=== PATIENT | female | born 1940 | race Caucasian/White ===

== ENCOUNTER → 2016-07-15 | Outpatient (CLI) | payer MEDICARE, OTHER ==
[~2016-07-15] VITALS: Ht 167.6 cm; Wt 94.3 kg
[~2016-07-15] MED LIST: ASPI-983 PO; ATOR10TA66 PO; ATOR20TA49 PO; ATOR40TA70 PO; CALC-80; CATHETER FLUSH 10 ML SYR IV PRN; CEFU500T PO; CEPH-507 PO; CHOL2000; CHOL20003 PO; CLOP75TA28 PO; CLOP75TA69 PO; DILT60TA PO; FLUT15.88 NS; FURO20TA4 PO; FURO40TA4 PO; GLUC10002; HYDR-3812 PO; LEVO125T6; LISI2.5T PO; MAG1CAPS4 PO; MAGN250T13 PO; MULT-608; NITR-65 PO; NITR100C10 PO; OMEG-160 PO; OMG1KC; POTA-53 PO; POTA10CA43 PO; POTA20TA8 PO; POTA2TAB15 PO; POTA99TA21 PO; REGADENOSON 0.4 MG/5 ML SYR (LEXISCAN) IV ONE; WARF-48 PO; WARF2.5T56 PO; WARF5TAB6 PO; WARF7.5T PO
--- OUTSIDE RECORDS SUMMARY | 2016-07-15 08:21 | XMS REPORT | Continuity of Care Document ---
Author Author [facility] Organization [facility] Address Unknown Phone Unavailable Care Team Providers Care Webbing Tacker Name Role Phone Paz Pisano PCP [phone] Source Comments Some departments are not documenting in the electronic medical record. If you do not see the information that you expected, contact Release of Information in the Health Information Management department at [phone] for further assistance in locating additional records.[facility] Active Allergies and Adverse Reactions No Known Allergies Current Medications Prescription Sig. Disp. Refills Start End Date Status Date levothyroxine (SYNTHROID) Take 125 mcg by mouth Active 125 mcg tablet every 48 hours. Alternate with 150mcg furosemide (LASIX) 40 mg Take 40 mg by mouth Active tablet daily. levothyroxine (SYNTHROID) Take 150 mcg by mouth Active 150 mcg tablet every 48 hours. Alternate with 125mcg diltiazem (CARDIZEM) 60 Take 60 mg by mouth four Active mg tablet times daily. atorvastatin (LIPITOR) 10 Take 10 mg by mouth Active mg tablet daily. cholecalciferol (VITAMIN Take 1,000 Units by mouth Active D-3) 1,000 units tablet daily. warfarin (COUMADIN) 5 mg Take 1 tablet (5mg) on Active tablet Wednesday, Wednesday, Wednesday, , Wednesday and 1.5 tablets (7.5mg) on Wednesday and Wednesday. fish oil /omega-3 fatty Take 1 Cap by mouth Active acids (SEA-OMEGA) daily. 340/1000 mg capsule Active Problems Problem Noted Date Facial fracture (HCC) 09/05/2015 Immunizations Name Dates Previously Given Next Due Td Vaccine 09/05/2015 Social History Tobacco Use Types Packs/Day Years Used Date Never Smoker Alcohol Use Drinks/Week oz/Week Comments No Last Filed Vital Signs Vital Sign Reading Time Taken Blood Pressure 104/63 09/06/2015 10:34 AM CONTRACT OFFICER Pulse 81 09/06/2015 10:34 AM CONTRACT OFFICER Temperature 36.5 C (97.7 F) 09/06/2015 10:34 AM CONTRACT OFFICER Respiratory Rate - - Height - - Weight 97.07 kg (214 lb) 09/05/2015 11:45 PM CONTRACT OFFICER Body Mass Index - - Oxygen Saturation 95% 09/06/2015 10:34 AM CONTRACT OFFICER Plan of Care Health Maintenance Due Date Last Done Comments Physical (Comprehensive) 1947 Exam Pertussis Vaccine 1949 Shingles Vaccine 1998 Osteoporosis Screening 2003 Prevnar/Pneumovax (#1) 2003 Influenza Vaccine 02/27/2016 Tetanus Vaccine 09/04/2025 09/05/2015 Results from Last 3 Months Not on file
[2016-07-15 09:53] VITALS: BP 106/56
[2016-07-15 09:56] VITALS: BP 109/67
--- NOTE | 2016-07-16 07:38 | STRESS TEST ---
PROCEDURE PHYSICIAN: ANAHY HANNA DATE OF PROCEDURE: 07/15/2016 LEXISCAN MYOVIEW STRESS TEST REPORT: REFERRING PHYSICIAN: Dr. Pisano BASELINE HEART RATE: 74 BASELINE BLOOD PRESSURE: 115/62 BASELINE EKG: Sinus rhythm with no ischemic changes. IN SUMMARY: The patient was injected with 10.61 mCi of technetium 99 Myoview and the resting images were obtained. Then the patient received 0.4 mg of Lexiscan followed by 31 mCi of technetium 99 Myoview. Throughout the test, there were no EKG changes. The resting and stress images were reviewed and compared in the short axis, horizontal long axis, and vertical long axis views. Review of the images showed breast attenuation. There is reversible ischemia involving the whole anterior wall, anterolateral wall and mid to apical inferolateral wall. SSS is 17, SDS 17, TID value 0.85. On the gated images, the left ventricle appeared to be normal size with normal contractility. Calculated ejection fraction 70%. IN CONCLUSION: 1. The patient tolerated Lexiscan well. 2. Reversible ischemia involving the whole anterior wall, anterolateral wall and mid to apical inferior lateral wall. 3. Normal left ventricular size with normal contractility. Calculated ejection fraction 70%. Job ID: [id number] Dictated Date: 07/15/2016 16:28:36 Fire Control Technician G Date: 07/16/2016 07:36:59 / corinne
== END ==
LOC: CARD 08:17
PROVIDERS: ATTEND Internal Medicine Cardiovascular Disease
DX: I48.2 Chronic atrial fibrillation (principal); I25.10 Atherosclerotic heart disease of native coronary artery without angina pectoris; I12.9 Hypertensive chronic kidney disease with stage 1 through stage 4 chronic kidney disease, or unspecified chronic kidney disease; N18.4 Chronic kidney disease, stage 4 (severe); E78.2 Mixed hyperlipidemia
CPT/HCPCS: 78452; 93017

== ENCOUNTER 2016-08-26 06:44 | Day surgery (SDC) | payer MEDICARE, OTHER ==
[~2016-08-26] VITALS: Ht 167.6 cm; Wt 89.8 kg
[2016-08-26] VITALS (11 sets, daily range): BP systolic 96–124; BP diastolic 63–83
[~2016-08-26 06:44] MED LIST changes: -ATOR20TA49 PO; -CATHETER FLUSH 10 ML SYR IV PRN; -CLOP75TA69 PO; -FLUT15.88 NS; -LISI2.5T PO; -MAGN250T13 PO; -POTA20TA8 PO; -REGADENOSON 0.4 MG/5 ML SYR (LEXISCAN) IV ONE
--- OUTSIDE RECORDS SUMMARY | 2016-08-26 06:47 | XMS REPORT | Continuity of Care Document ---
Author Author [facility] Organization [facility] Address Unknown Phone Unavailable Care Team Providers Care Field Cane Scale Clerk Name Role Phone Paz Pisano PCP [phone] Source Comments Some departments are not documenting in the electronic medical record. If you do not see the information that you expected, contact Release of Information in the Health Information Management department at [phone] for further assistance in locating additional records.[facility] Active Allergies and Adverse Reactions No Known [...] Taken Blood Pressure 104/63 09/06/2015 10:34 AM ELECTRIC RANGE PREPARER Pulse 81 09/06/2015 10:34 AM ELECTRIC RANGE PREPARER Temperature 36.5 C (97.7 F) 09/06/2015 10:34 AM ELECTRIC RANGE PREPARER Respiratory Rate - - Height - - Weight 97.07 kg (214 lb) 09/05/2015 11:45 PM ELECTRIC RANGE PREPARER Body Mass Index - - Oxygen Saturation 95% 09/06/2015 10:34 AM ELECTRIC RANGE PREPARER Plan of Care Health Maintenance Due Date Last Done Comments Physical (Comprehensive) 1947 Exam Pertussis Vaccine 1949 Shingles Vaccine 1998 Osteoporosis Screening 2003 Prevnar/Pneumovax (#1) 2003 Influenza Vaccine 02/27/2016 Tetanus Vaccine 09/04/2025 09/05/2015 Results from Last 3 Months Not on file
--- OUTSIDE RECORDS SUMMARY | 2016-08-26 06:47 | XMS REPORT | Continuity of Care Document ---
Author Author [facility] Organization [facility] Address Unknown Phone Unavailable Care Team Providers Care Information Systems Auditor Name Role Phone Paz Pisano PCP [phone] Source Comments Some departments are not documenting in the electronic medical record. If you do not see the information that you expected, contact Release of Information in the Health Information Management department at [phone] for further assistance in locating additional records.[facility] Active Allergies and Adverse Reactions No [...] Taken Blood Pressure 104/63 09/06/2015 10:34 AM ASSEMBLER AND TESTER ELECTRONICS Pulse 81 09/06/2015 10:34 AM ASSEMBLER AND TESTER ELECTRONICS Temperature 36.5 C (97.7 F) 09/06/2015 10:34 AM ASSEMBLER AND TESTER ELECTRONICS Respiratory Rate - - Height - - Weight 97.07 kg (214 lb) 09/05/2015 11:45 PM ASSEMBLER AND TESTER ELECTRONICS Body Mass Index - - Oxygen Saturation 95% 09/06/2015 10:34 AM ASSEMBLER AND TESTER [employer]LECTRONICS Plan of Care Health Maintenance Due Date Last Done Comments Physical (Comprehensive) 1945 Exam Pertussis Vaccine 1949 Shingles Vaccine 1998 Osteoporosis Screening 2003 Prevnar/Pneumovax (#1) 2003 Influenza Vaccine 02/27/2016 Tetanus Vaccine 09/04/2025 09/05/2015 Results from Last 3 Months Not on file
[2016-08-26] MEDS ORDERED: NS IV 1000 ML 1,000 ML ONE (07:01)
[2016-08-26] MEDS ORDERED: LIDOCAINE 1% INJ 20 ML (XYLOCAINE) VIAL ONE (07:01)
[2016-08-26] MEDS ORDERED: HEParin (CATH LAB) 2,000 ML IV ONE (07:02)
[2016-08-26] MEDS ORDERED: NS IV 1000 ML 1,000 ML IV SCH ×2 (07:07→10:10)
[2016-08-26 07:33] LABS: BILIRUBIN,URINE NEGATIVE (NEGATIVE); KETONES,URINE NEGATIVE (NEGATIVE); LEUKOCYTE ESTERASE ,URINE 2+ (NEGATIVE); NITRITE,URINE NEGATIVE (NEGATIVE); PH,URINE 6 (5-9); PROTEIN,URINE NEGATIVE (NEGATIVE); UROBILINOGEN,URINE NORMAL (NORMAL)
[2016-08-26 07:33] LABS: MEAN PLATELET VOLUME 9.9 FL (7.4-10.4); RED BLOOD COUNT 5.15 10^6/uL (4.35-5.85); RED CELL DISTRIBUTION WIDTH 16.4 % (10.0-14.5); WHITE BLOOD COUNT 10.1 10^3/uL (4.3-11.0)
[2016-08-26 07:45] LABS: INR 1.6 (0.8-1.4); PROTHROMBIN TIME PATIENT 18.7 SEC (12.2-14.7)
[2016-08-26 07:50] LABS: WBC,URINE 25-50 /HPF
[2016-08-26 07:53] LABS: ALBUMIN 3.3 G/DL (3.2-4.5); CALCIUM 9.3 MG/DL (8.5-10.1); CREATININE SERUM 1.15 MG/DL (0.60-1.30); POTASSIUM 3.6 MMOL/L (3.6-5.0); TOTAL PROTEIN 6.3 G/DL (6.4-8.2)
--- NOTE | 2016-08-26 08:06 | Diagnostic Imaging Report ---
Portable upright radiograph of the chest. COMPARISON: 11/03/2015. INDICATION: Abnormal stress test, shortness of breath. FINDINGS: The lungs are hyperinflated but clear. The heart size is moderately enlarged. No effusion or pneumothorax. The mediastinum and mita appear unremarkable. IMPRESSION: COPD. Cardiomegaly. Dictated by: Dictated on workstation # [id number]
[2016-08-26] MEDS ORDERED: FLUT15.88 NS (08:19)
[2016-08-26] MEDS ORDERED: CLOP75TA69 PO (08:19)
[2016-08-26] MEDS ORDERED: MAGN250T13 PO (08:19)
[2016-08-26] MEDS ORDERED: LISI2.5T PO (08:19)
[2016-08-26] MEDS ORDERED: ASPI-983 PO (08:19)
[2016-08-26] MEDS ORDERED: POTA20TA8 PO (08:19)
[2016-08-26] MEDS ORDERED: fentaNYL INJECTION 100 MCG/2 ML AMP ONE (09:31)
[2016-08-26] MEDS ORDERED: MIDAZOLAM 5 MG/5 ML (VERSED) VIAL ONE (09:31)
--- NOTE | 2016-08-26 09:46 | Cardiac Procedure Note-CS/ASA ---
Pre-Procedure Note Pre-Op Procedure Note H&P Reviewed The H&P was reviewed, patient examined and no changes noted. Date H&P Reviewed: Aug 26, 2016 Time H&P Reviewed: 09:46 Conscious Sedation Pre-Proced Time Reviewed: 09:46 ASA Class: 3 Airway Mallampati Classification: ([place] appropriate class) I. II. III, IV Lungs Heart ASA score ASA 1: a normal healthy patient ASA 2: a patient with a mild systemic disease (mid diabetes, controlled hypertension, obesity x ASA 3: a patient with a severe systemic disease that limits activity (angina , COPD, prior Myocardial infarction) ASA 4: a patient with an incapacitating disease that is a constant threat to life (CHF, renal failure) ASA 5: a moribund patient not expected to survive 24 hrs. (ruptured aneurysm) ASA 6: a declared brain patient whose organs are being harvested. For emergent operations, add the letter E after the classification Grade 3 Sedation Plan: Analgesia, Amnesia, Plan communicated to team members, Discussed options with patient/fam, Discussed risks with patient/fam Note The patient is an appropriate candidate to undergo the planned procedure, sedation, and anesthesia. The patient immediately re-assessed prior to indication. ANAHY HANNA MD Aug 26, 2016 9:46 am
[2016-08-26] MEDS ORDERED: ATOR20TA49 PO (10:12)
--- NOTE | 2016-08-26 10:13 | Discharge Inst-Post CATH ---
Discharge Inst-CATH Post Cardiac Cath D/C Inst Follow Up/Plan Appointment with Dr Her's office in 2-4 weeks CARDIAC CATH DISCHARGE INSTRUCTIONS *Hold Metformin for 48 hours post heart cath. ACTIVITY * Go Home directly and rest. * Limit activity of the leg (or wrist if it was used) for 7 days including aerobics, swimming, jogging, bicycling, etc. * Restrict stair-climbing for 7 days if possible, if not, climb up with your non -cath leg, then bring together on the same step. * Avoid lifting, pushing, pulling or excessive movement of the affected extremity for 7 days. * Customary sexual activity may be resumed after 2 days-use caution not to use a position that strains or causes pain to the affected extremity. * No driving for 24 hours. * NO SMOKING. * Avoid straining for bowel movements for 7 days. * Gentle walking on level ground is allowed. * Returning to work will depend on the type of procedure and the results. Your doctor will discuss this with you. CALL YOUR DOCTOR FOR ANY OF THE FOLLOWING: *If bleeding from the puncture site occurs- Apply gentle pressure to site with clean cloth and call your doctor or EMS. * If a knot or lump forms under the skin, increases in size, or causes pain. * If bruising appears to be worsening or moving further down your leg instead of disappearing. * Temperature above 101 F. CARE OF YOUR GROIN INCISION; * Bruising or purple discoloration of the skin near the puncture site is common. * You may shower only, no bathtub bathing for 5 days. Be careful to avoid slipping as your leg may feel stiff. * If a closure device was used on your femoral artery, please see the attached guide regarding care of the device and your leg. * REMOVE the dressing from your groin the next day after your procedure in the shower. CARE OF YOUR WRIST INCISION; * Bruising or purple discoloration of the skin near the puncture site is common. * You may shower. * DO NOT submerge wrist. * Remove dressing in 24 hours. ANAHY HER MD Aug 26, 2016 10:13
[2016-08-26] MEDS ORDERED: PATIENT MAY USE OWN MEDS, ALL PO SCH (10:15)
--- NOTE | 2016-08-27 07:45 | DISCHARGE SUMMARY ---
PROCEDURE PHYSICIAN: ANAHY HANNA DATE OF PROCEDURE: 08/26/2016 REFERRING PHYSICIAN: Dr. Pisano. Mrs. Carver is a 76-year-old lady with history of coronary artery disease. She had a stent to the LAD done in September 2015. She had an abnormal stress test. She was scheduled for left heart catheterization, possible PTCA. PROCEDURE NOTE: After explaining the procedure to the patient, all pros and cons were explained. All questions were answered. The patient signed a consent, then she was placed on the cardiac catheterization laboratory. The right groin was prepped in a sterile fashion. Local anesthesia applied to the right groin. 6-Occitan sheath was placed in the right femoral artery. Combination of right and left Paul catheter were used to access the right and left coronary system. Pigtail catheter advanced to the left ventricular cavity. Pressure was measured left. No left ventriculogram was done. Pullback LV to aorta was done. The aortic arch angiogram was done. At the end of the procedure, sheath was removed. Mynx device deployed. Hemostasis achieved. Total contrast used is 48 mL. Total radiation is 138 mCi. FINDINGS: HEMODYNAMICS: LV pressure 94/7, end-diastolic pressure of 7, aortic pressure 93/55, mean of 72. ANATOMY: 1. LEFT MAIN CORONARY ARTERY: The left main coronary artery is bifurcating to left anterior descending and left circumflex artery with no obstructive disease. 2. LEFT ANTERIOR DESCENDING ARTERY: The left anterior descending artery is moderate in size. Stent is patent in the LAD. Mild small vessel disease distally. 3. LEFT CIRCUMFLEX ARTERY: The left circumflex artery is moderate in size with mild irregularity distally. No significant obstructive disease. Right coronary artery is moderate in size with no obstructive disease. 4. AORTIC ARCH ANGIOGRAM: Aortic arch angiogram was done in the left anterior oblique position. Aortic arch is slightly tortuous. No dissection or aneurysm. Origin of the innominate artery, carotid artery and subclavian artery appeared normal. CONCLUSION: 1. Patent stent in the proximal LAD known to have a Promus 2.5 x 24 mm with mild disease at the distal LAD and distal circumflex artery, nonobstructive disease. 2. Normal left ventricular end-diastolic pressure. 3. Slightly tortuous aortic arch with hypertensive changes with no dissection or aneurysm. Normal great neck vessels. DISCUSSION AND RECOMMENDATION: Medical therapy is recommended. No intervention is needed at this time. I will discontinue Plavix, continue on aspirin and Coumadin. Increase Lipitor to 20 mg daily FINAL DIAGNOSES: 1. Coronary artery disease. 2. Hypertension. 3. Hyperlipidemia. 4. Diabetes mellitus. Job ID: [id number] Dictated Date: 08/26/2016 10:17:36 Baker Helper Date: 08/27/2016 07:44:26/adriel
== END 2016-08-26 15:25 | disposition home or self-care (01) ==
LOC: CATH 06:44 → SURG 10:36 → CATH 15:25
PROVIDERS: ATTEND Internal Medicine Cardiovascular Disease
DX: R94.39 Abnormal result of other cardiovascular function study (principal); I25.10 Atherosclerotic heart disease of native coronary artery without angina pectoris; I12.9 Hypertensive chronic kidney disease with stage 1 through stage 4 chronic kidney disease, or unspecified chronic kidney disease; E11.22 Type 2 diabetes mellitus with diabetic chronic kidney disease; N18.4 Chronic kidney disease, stage 4 (severe); I48.2 Chronic atrial fibrillation; E78.5 Hyperlipidemia, unspecified; J44.9 Chronic obstructive pulmonary disease, unspecified; I50.32 Chronic diastolic (congestive) heart failure; E03.9 Hypothyroidism, unspecified; Z79.01 Long term (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; Z79.899 Other long term (current) drug therapy; Z95.5 Presence of coronary angioplasty implant and graft; Z85.3 Personal history of malignant neoplasm of breast; Z92.3 Personal history of irradiation
CPT/HCPCS: 36221; 36415; 71010; 80053; 80061; 81000; 85027; 85610; 85730; 87077; 87081; 87088; 87186; 93005; 93458

== ENCOUNTER → 2017-03-04 | Outpatient (CLI) | payer MEDICARE, OTHER ==
[~2017-03-04] MED LIST changes: +ATOR20TA49 PO; +CLOP75TA69 PO; +FLUT15.88 NS; +LISI2.5T PO; +MAGN250T13 PO; +POTA20TA8 PO
--- NOTE | 2017-03-04 09:21 | Diagnostic Imaging Report ---
EXAMINATION: DEXA scan. INDICATION: Screening for osteoporosis. COMPARISON: This study is compared to the prior exam of 07/13/2014. TECHNIQUE: The bone mineral density of the hips and spine was measured. FINDINGS: The T score for the spine is -1.3. This is unchanged when compared to the previous study. The T score for the right hip is -2.3 and for the left hip is -2.1. On the prior exam, the respective T scores were -1.5 and -1.9. IMPRESSION: 1. There has been a decrease in the bone mineral density of the hips in the interval since the prior exam. The T score value now indicates severe osteopenia. 2. The T score value for the spine is unchanged and falls within the range of osteopenia. Dictated by: Dictated on workstation # [id number]
== END ==
LOC: RAD 08:05
PROVIDERS: ATTEND Nurse Practitioner Adult Health
DX: M85.88 Other specified disorders of bone density and structure, other site (principal); C50.511 Malignant neoplasm of lower-outer quadrant of right female breast
CPT/HCPCS: 77080

== ENCOUNTER → 2017-04-05 | Outpatient (CLI) | payer MEDICARE, OTHER ==
[2017-04-05 14:19] LABS: INR 2.6 (0.8-1.4); PROTHROMBIN TIME PATIENT 27.4 SEC (12.2-14.7)
== END ==
LOC: LAB 13:40
PROVIDERS: ATTEND Family Medicine
DX: Z79.899 Other long term (current) drug therapy (principal)
CPT/HCPCS: 36415; 85610

== ENCOUNTER → 2017-04-05 | Outpatient (CLI) | payer MEDICARE, OTHER ==
[2017-04-05 14:06] LABS: BASOPHILS # (AUTO) 0.1 10^3/uL (0.0-0.1); BASOPHILS % (AUTO) 1 % (0-10); EOSINOPHILS # (AUTO) 0.3 10^3/uL (0.0-0.3); EOSINOPHILS % (AUTO) 3 % (0-10); LYMPHOCYTES # (AUTO) 2.4 X 10^3 (1.0-4.0); LYMPHOCYTES % (AUTO) 21 % (12-44); MEAN CORPUSCULAR HEMOGLOBIN 30 PG (25-34); MEAN CORPUSCULAR HGB CONC 33 G/DL (32-36); MEAN CORPUSCULAR VOLUME 91 FL (80-99); MEAN PLATELET VOLUME 9.8 FL (7.4-10.4); MONOCYTES # (AUTO) 0.9 X 10^3 (0.0-1.0); MONOCYTES % (AUTO) 8 % (0-12); NEUTROPHILS # (AUTO) 7.4 X 10^3 (1.8-7.8); NEUTROPHILS % (AUTO) 67 % (42-75); PLATELET COUNT 293 10^3/uL (130-400); RED BLOOD COUNT 4.83 10^6/uL (4.35-5.85); RED CELL DISTRIBUTION WIDTH 15.5 % (10.0-14.5)
[2017-04-05 14:27] LABS: ALBUMIN 3.1 GM/DL (3.2-4.5); BILIRUBIN,TOTAL 0.7 MG/DL (0.1-1.0); CREATININE SERUM 1.17 MG/DL (0.60-1.30); TOTAL PROTEIN 6.5 GM/DL (6.4-8.2)
== END ==
LOC: ONC 13:37
PROVIDERS: ATTEND Internal Medicine Hematology & Oncology
DX: C50.511 Malignant neoplasm of lower-outer quadrant of right female breast (principal)
CPT/HCPCS: 36415; 80053; 85025; 99213

== ENCOUNTER → 2017-07-21 | Outpatient (CLI) | payer MEDICARE, OTHER ==
[~2017-07-21] MED LIST changes: +ACHD5005 PO; -HYDR-3812 PO
--- NOTE | 2017-07-21 19:31 | Diagnostic Imaging Report ---
INDICATION: Routine screening. COMPARISON: Comparison is made with prior mammogram from 06/24/2016 and 03/23/2016. The current study was also evaluated with a Computer Aided Detection (CAD) system. FINDINGS: Both breasts are heterogeneously dense, limiting sensitivity of mammography. Extensive vascular calcifications are noted laterally. There appears to be some increased density and architectural distortion in the posterior aspect of the right breast, best seen on the MLO view. This appears stable and is likely postsurgical. No new mass is identified. The axillae are unremarkable. IMPRESSION: No mammographic features suspicious for malignancy are identified. ACR BI-RADS Category 2: Benign findings. Result letter will be mailed to the patient. Note: At least 10% of breast cancer is not imaged by mammography. Dictated by: Dictated on workstation # [id number]
== END ==
LOC: RAD 09:55
PROVIDERS: ATTEND Internal Medicine Hematology & Oncology
DX: Z12.31 Encounter for screening mammogram for malignant neoplasm of breast (principal); Z85.3 Personal history of malignant neoplasm of breast
CPT/HCPCS: 77067

== ENCOUNTER → 2017-08-11 | Outpatient (CLI) | payer MEDICARE, OTHER | LOC: CARD 09:49 | PROVIDERS: ATTEND Internal Medicine Cardiovascular Disease | DX: I48.2 Chronic atrial fibrillation (principal); I25.10 Atherosclerotic heart disease of native coronary artery without angina pectoris; I12.9 Hypertensive chronic kidney disease with stage 1 through stage 4 chronic kidney disease, or unspecified chronic kidney disease; N18.4 Chronic kidney disease, stage 4 (severe); E78.2 Mixed hyperlipidemia; I34.0 Nonrheumatic mitral (valve) insufficiency | CPT/HCPCS: 93306 ==

== ENCOUNTER → 2017-10-01 | Outpatient (CLI) | payer MEDICARE, OTHER ==
[~2017-10-01] MED LIST changes: -MAG1CAPS4 PO; +MAGNESIUM-VIT1 EACH PO
== END ==
LOC: WOUNDCARE 09:07
PROVIDERS: ATTEND Surgery
DX: I87.323 Chronic venous hypertension (idiopathic) with inflammation of bilateral lower extremity (principal); I89.0 Lymphedema, not elsewhere classified; I50.9 Heart failure, unspecified; I70.203 Unspecified atherosclerosis of native arteries of extremities, bilateral legs
CPT/HCPCS: 99213

== ENCOUNTER 2017-10-04 13:58 | Outpatient (RCR) | payer MEDICARE, OTHER | END 2017-10-05 | disposition home or self-care (01) | PROVIDERS: ATTEND Family Medicine | DX: M54.2 Cervicalgia (principal); M62.838 Other muscle spasm ==

== ENCOUNTER → 2017-10-08 | Outpatient (CLI) | payer MEDICARE, OTHER | LOC: WOUNDCARE 11:03 | PROVIDERS: ATTEND Surgery | DX: I87.323 Chronic venous hypertension (idiopathic) with inflammation of bilateral lower extremity (principal); I89.0 Lymphedema, not elsewhere classified; I50.9 Heart failure, unspecified | CPT/HCPCS: 99212 ==

== ENCOUNTER → 2018-04-04 | Outpatient (CLI) | payer MEDICARE, OTHER ==
[2018-04-04 13:20] LABS: BASOPHILS % (AUTO) 1 % (0-10); EOSINOPHILS # (AUTO) 0.2 10^3/uL (0.0-0.3); EOSINOPHILS % (AUTO) 2 % (0-10); HEMATOCRIT 41 % (35-52); HEMOGLOBIN 13.9 G/DL (11.5-16.0); LYMPHOCYTES # (AUTO) 2.4 X 10^3 (1.0-4.0); LYMPHOCYTES % (AUTO) 27 % (12-44); MEAN CORPUSCULAR HEMOGLOBIN 31 PG (25-34); MEAN CORPUSCULAR HGB CONC 34 G/DL (32-36); MEAN CORPUSCULAR VOLUME 91 FL (80-99); MEAN PLATELET VOLUME 10.2 FL (7.4-10.4); MONOCYTES # (AUTO) 0.8 X 10^3 (0.0-1.0); MONOCYTES % (AUTO) 9 % (0-12); NEUTROPHILS # (AUTO) 5.3 X 10^3 (1.8-7.8); NEUTROPHILS % (AUTO) 61 % (42-75); PLATELET COUNT 298 10^3/uL (130-400); RED BLOOD COUNT 4.53 10^6/uL (4.35-5.85); RED CELL DISTRIBUTION WIDTH 16.9 % (10.0-14.5); WHITE BLOOD COUNT 8.7 10^3/uL (4.3-11.0)
[2018-04-04 13:52] LABS: ALBUMIN 3.4 GM/DL (3.2-4.5); BILIRUBIN,TOTAL 0.7 MG/DL (0.1-1.0); CALCIUM 9.6 MG/DL (8.5-10.1); CREATININE SERUM 1.1 MG/DL (0.60-1.30); TOTAL PROTEIN 6.4 GM/DL (6.4-8.2)
== END ==
LOC: ONC 12:53
PROVIDERS: ATTEND Internal Medicine Hematology & Oncology
DX: Z85.3 Personal history of malignant neoplasm of breast (principal)
CPT/HCPCS: 36415; 80053; 85025; 99213

== ENCOUNTER 2018-04-05 06:00 | Outpatient (RCR) | payer MEDICARE, OTHER | END 2018-04-07 | disposition home or self-care (01) | LOC: CR3 06:00 | PROVIDERS: ATTEND Family Medicine | DX: Z29.8 Encounter for other specified prophylactic measures (principal) ==

== ENCOUNTER 2018-05-06 14:53 | Outpatient (RCR) | payer MEDICARE, OTHER | END 2018-05-07 | disposition home or self-care (01) | LOC: CR3 14:53 | PROVIDERS: ATTEND Family Medicine | DX: Z29.8 Encounter for other specified prophylactic measures (principal) ==

== ENCOUNTER 2018-06-08 15:51 | Outpatient (RCR) | payer MEDICARE, OTHER | END 2018-06-09 | disposition home or self-care (01) | LOC: CR3 15:51 | PROVIDERS: ATTEND Family Medicine | DX: Z29.8 Encounter for other specified prophylactic measures (principal) ==

== ENCOUNTER 2018-06-15 16:07 | Outpatient (RCR) | payer MEDICARE, OTHER ==
[~2018-06-15 16:07] MED LIST changes: -LEVO125T6; +LEVO125T6 PO
[2018-07-03] MEDS ORDERED: LEVO125T6 PO (00:05)
[2018-07-03] MEDS ORDERED: VITAMIN C 1000 MG PO (00:05)
[2018-07-03] MEDS ORDERED: CALC-712 PO (00:05)
[2018-07-03] MEDS ORDERED: ATOR20TA66 PO (00:05)
[2018-07-03] MEDS ORDERED: ALEN35TA32 PO (00:05)
[2018-07-04] MEDS ORDERED: MAGN500C16 PO (14:46)
[2018-07-04] MEDS ORDERED: DILT30TA PO (14:46)
[2018-07-04] MEDS ORDERED: ASCO100025 PO (14:46)
[2018-07-04] MEDS ORDERED: LEVO125T6 PO (14:46)
[2018-07-04] MEDS ORDERED: FURO40TA4 PO (14:46)
[2018-07-04] MEDS ORDERED: WARF4TAB70 PO (14:46)
[2018-07-04] MEDS ORDERED: CALC-6 PO (14:49)
[2018-07-05] MEDS ORDERED: LACT1TAB9 PO (08:48)
[2018-07-05] MEDS ORDERED: CIPR500T4 PO (08:48)
[2018-07-05] MEDS ORDERED: WARF-48 PO (08:48)
[2018-07-05] MEDS ORDERED: METR500T PO (08:48)
[2018-07-05] MEDS ORDERED: WARF4TAB PO (09:15)
== END 2018-07-10 | disposition home or self-care (01) ==
LOC: CR3 16:07
PROVIDERS: ATTEND Family Medicine
DX: Z29.8 Encounter for other specified prophylactic measures (principal)

== ENCOUNTER 2018-07-02 17:34 | Inpatient (IN) | payer MEDICARE, OTHER | END 2018-07-05 14:55 | disposition home or self-care (01) | LOC: ER 17:34 → 4TH 20:43 | DX: K57.32 Diverticulitis of large intestine without perforation or abscess without bleeding (principal); I10 Essential (primary) hypertension; I25.10 Atherosclerotic heart disease of native coronary artery without angina pectoris; R09.02 Hypoxemia; G47.30 Sleep apnea, unspecified; M81.0 Age-related osteoporosis without current pathological fracture; D72.823 Leukemoid reaction; R79.1 Abnormal coagulation profile; M54.9 Dorsalgia, unspecified; Z99.81 Dependence on supplemental oxygen; Z87.442 Personal history of urinary calculi; Z86.010 Personal history of colon polyps; Z86.718 Personal history of other venous thrombosis and embolism; Z79.01 Long term (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; Z87.891 Personal history of nicotine dependence; Z90.81 Acquired absence of spleen; Z85.3 Personal history of malignant neoplasm of breast; Z88.2 Allergy status to sulfonamides ==

== ENCOUNTER → 2018-07-25 | Outpatient (CLI) | payer MEDICARE, OTHER ==
[~2018-07-25] MED LIST changes: +ALEN35TA32 PO; +ASCO100025 PO; +ATOR20TA66 PO; +CALC-6 PO; +CALC-712 PO; +CIPR500T4 PO; +DILT30TA PO; +LACT1TAB9 PO; +MAGN500C16 PO; +METR500T PO; +VITAMIN C 1000 MG PO; +WARF4TAB PO; +WARF4TAB70 PO
--- NOTE | 2018-07-26 19:20 | Diagnostic Imaging Report ---
EXAMINATION: Digital mammogram bilateral screening with 3D tomosynthesis and computer-aided detection (CAD) system. INDICATION: Screening. COMPARISON: This study was compared to the prior exams of 07/21/2017, 06/24/2016, and 03/23/2016. 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 At this time, there are no current complaints. FINDINGS: The fibroglandular tissue in both breasts is heterogeneously dense. This does limit the sensitivity of this exam. Overall, there does not appear to have been any significant change when compared to the prior study. No primary or secondary sign of malignancy is noted. 3D tomographic images fail to show any sign of malignancy. Extensive vascular and parenchymal calcifications are again seen. IMPRESSION: There is no radiographic evidence for malignancy. ACR BI-RADS Category 1: Negative. Result letter will be mailed to the patient. Note: At least 10% of breast cancer is not imaged by mammography. Dictated by: Dictated on workstation # [id number]
== END ==
LOC: RAD 11:19
PROVIDERS: ATTEND Nurse Practitioner Adult Health
DX: Z12.31 Encounter for screening mammogram for malignant neoplasm of breast (principal); C50.511 Malignant neoplasm of lower-outer quadrant of right female breast
CPT/HCPCS: 77067

== ENCOUNTER → 2018-08-10 | Outpatient (RCR) | payer MEDICARE, OTHER | END | disposition home or self-care (01) | LOC: CR3 07-11 16:00 | PROVIDERS: ATTEND Family Medicine | DX: Z29.8 Encounter for other specified prophylactic measures (principal) ==

== ENCOUNTER 2018-08-24 06:22 | Outpatient (CLI) | payer MEDICARE, OTHER ==
[~2018-08-24] VITALS: Ht 170.2 cm; Wt 97.1 kg
== END 2018-08-24 10:30 ==
LOC: PREOP 06:22
PROVIDERS: ATTEND Surgery
DX: Z01.818 Encounter for other preprocedural examination (principal)

== ENCOUNTER 2018-08-30 11:59 | Day surgery (SDC) | payer MEDICARE, OTHER ==
[~2018-08-30] VITALS: Ht 170.2 cm; Wt 97.1 kg
[2018-08-30] MEDS ORDERED: LIDOCAINE 1% INJ 20 ML 20 ML VIAL ONE (12:05)
[2018-08-30] MEDS ORDERED: BUP/EPI 0.5% 1:200,000 (SENSORCAINE) 30 ML VIAL ONE (12:05)
[2018-08-30 12:25] VITALS: BP 114/80
[2018-08-30] MEDS ORDERED: PROPOFOL INJECTION 50 ML IV ONE (12:41)
[2018-08-30] MEDS ORDERED: MIDAZOLAM 2 MG/2 ML (VERSED) VIAL ONE (12:41)
[2018-08-30] MEDS ORDERED: ceFAZolin 2 GM IV Premixed 50 ML IV ONE (12:45)
[2018-08-30 12:47] LABS: INR 1.3 (0.8-1.4); PROTHROMBIN TIME PATIENT 16.3 SEC (12.2-14.7)
[2018-08-30] MEDS ORDERED: fentaNYL INJECTION 100 MCG/2 ML AMP ONE (13:02)
[2018-08-30] MEDS ORDERED: ONDANSETRON 4 MG/2 ML (SDV) Z0FRAN ONE (13:16)
[2018-08-30] MEDS: LACTATED RINGERS 1,000 ML IV PRN ×2 (13:19→14:27)
--- NOTE | 2018-08-30 13:28 | Progress Note-Pre Operative ---
Pre-Operative Progress Note H&P Reviewed The H&P was reviewed, patient examined and no changes noted. Date Seen by Provider: Aug 30, 2018 Time Seen by Provider: 13:27 Date H&P Reviewed: Aug 30, 2018 Time H&P Reviewed: 13:27 Pre-Operative Diagnosis: history of diverticulitis, skin lesion scalp GIO HADDAD DO Aug 30, 2018 13:28
[2018-08-30] MEDS ORDERED: MEPERIDINE (DEMEROL) INJ 50 MG/ML IVP ONE (13:45)
[2018-08-30] MEDS ORDERED: morphine INJ 10 MG/ML 1ML (SYR OR VIAL) IVP ONE (13:45)
[2018-08-30] MEDS ORDERED: ONDANSETRON 4 MG/2 ML (SDV) Z0FRAN IVP PRN (13:45)
[2018-08-30] MEDS ORDERED: BACITRACIN OINTMENT 28 GM TUBE ONE (13:58)
[2018-08-30] MEDS ORDERED: SEVOFLURANE (ULTANE) 15 ML INHAL SOLN ONE (14:38)
--- NOTE | 2018-08-30 14:59 | Progress Note-Post Operative ---
Post-Operative Progess Note Surgeon (s)/1St Grade Teacher (s) Surgeon GIO HADDAD DO 1St Grade Teacher: NA Pre-Operative Diagnosis history of diverticulitis, skin lesion scalp Post-Operative Diagnosis SKIN LESION, Diverticulosis, cecal and ascending colon polyp Procedure & Operative Findings Date of Procedure 08/30/18 Procedure Performed/Findings excision skin lesion 1.4 x 2.3cm colonoscopy c hot bx polypectomy x 2 Anesthesia Type per [employer] police launch commander Estimated Blood Loss Estimated blood loss (mL): min Specimens/Packing Specimens Removed skin lesion scalp, colon polyps GIO HADDAD DO Aug 30, 2018 14:59
--- NOTE | 2018-08-30 15:02 | Discharge Inst-Simple/Standard ---
Discharge Inst-Standard Patient Instructions/Follow Up Plan of Care/Instructions/FU: 12-14 days David Start taking Coumadin and aspirin back on Wednesday. Activity as Tolerated: Yes Discharge Diet: Regular Diet GIO HADDAD DO Aug 30, 2018 15:02
[2018-08-30 15:40] VITALS: BP 101/63
[2018-08-30 16:10] VITALS: BP 115/72
[2018-08-30] MEDS ORDERED: ACETAMINOPHEN 500 MG TAB (TYLENOL) PO ONE (16:15)
[2018-08-30] MEDS ORDERED: ACETAMINOPHEN 500 MG TAB (TYLENOL) ONE (16:18)
[2018-08-30 16:40] VITALS: BP 115/72
[2018-08-30 17:00] VITALS: BP 115/72
--- NOTE | 2018-08-31 08:46 | OPERATIVE REPORT ---
DATE OF SERVICE: 08/30/2018 PREOPERATIVE DIAGNOSES: Skin lesion scalp and history of diverticulitis. POSTOPERATIVE DIAGNOSES: Diverticulosis and skin lesion scalp and colon polyps, cecum and ascending. PROCEDURE: Excision of skin lesion scalp 1.4 x 2.3 cm and colonoscopy with hot biopsy polypectomy x2. SURGEON: Gio Hernandez DO. ANESTHESIA: General. ESTIMATED BLOOD LOSS: Minimal. COMPLICATIONS: None. INDICATIONS: The patient is an 78-year-old female with skin lesion scalp and history of diverticulitis. She understands risks and benefits of procedure and wished to proceed with procedure. Consent was signed on the chart. DESCRIPTION OF PROCEDURE: The patient was taken to the operating suite in the supine position. The scalp was prepped and draped in the sterile fashion. Timeout was performed. Local anesthetic was infiltrated into the area. An elliptical incision measuring 1.4 x 2.3 cm was made around the skin lesion, taking skin. Cautery and sharp dissection was used to remove the skin and subcutaneous tissue. Once removed, cautery was used to achieve hemostasis. Wound was irrigated and skin was then closed using 3-0 Prolene in simple running fashion. At this time, the patient was repositioned in left lateral recumbent position. Digital rectal exam was performed. There were no palpable polyps, masses or ulcerations. Scope was inserted in the rectum and advanced all the way to the cecum with minimal difficulty. Prep was adequate. Scope was then slowly retracted back. In the cecum, there is polyp was present, which hot biopsy polypectomy was performed. Scope was continuously retracted back into the ascending colon, which a small polyp was present, which hot biopsy polypectomy was performed. Scope was continued to be slowly retracted back. There were no other polyps, masses or ulcerations within the remainder of the ascending colon, transverse colon and descending and sigmoid colon. Through the descending and sigmoid colon, moderate amount of diverticulosis present. No polyps, masses or ulcerations. Scope was continuously retracted back into the rectum, where it was also retroflexed noting no other pathology. Scope was returned to its normal position, slowly withdrawn until completely removed. RECOMMENDATIONS: The patient will follow up in 2 weeks to discuss pathology results. If any issues before that, be seen at that time. Colonoscopy in the near future if symptomatic and if benefits outweigh risks. Job ID: [id number] DocumentID: [id number] Dictated Date: 08/31/2018 07:42:01 Telecommunications Linesworker Date: 08/31/2018 08:45:33 Dictated By: GIO HERNANDEZ DO
== END 2018-08-30 17:00 | disposition home or self-care (01) ==
LOC: SDC 11:59
PROVIDERS: ATTEND Surgery
DX: C44.42 Squamous cell carcinoma of skin of scalp and neck (principal); K57.30 Diverticulosis of large intestine without perforation or abscess without bleeding; D12.0 Benign neoplasm of cecum; I48.91 Unspecified atrial fibrillation; I25.10 Atherosclerotic heart disease of native coronary artery without angina pectoris; I12.9 Hypertensive chronic kidney disease with stage 1 through stage 4 chronic kidney disease, or unspecified chronic kidney disease; N18.4 Chronic kidney disease, stage 4 (severe); E78.5 Hyperlipidemia, unspecified; E03.9 Hypothyroidism, unspecified; G47.33 Obstructive sleep apnea (adult) (pediatric); I08.1 Rheumatic disorders of both mitral and tricuspid valves; D69.6 Thrombocytopenia, unspecified; Z79.01 Long term (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; Z79.82 Long term (current) use of aspirin; Z79.899 Other long term (current) drug therapy; Z85.3 Personal history of malignant neoplasm of breast; Z87.891 Personal history of nicotine dependence
CPT/HCPCS: 36415; 85610; 87081; 88305

== ENCOUNTER → 2018-09-14 | Outpatient (RCR) | payer MEDICARE, OTHER | END | disposition home or self-care (01) | LOC: CR3 08-15 17:00 | PROVIDERS: ATTEND Family Medicine | DX: Z29.8 Encounter for other specified prophylactic measures (principal) ==

== ENCOUNTER → 2018-10-19 | Outpatient (RCR) | payer MEDICARE, OTHER | END | disposition home or self-care (01) | LOC: CR3 09-19 08:00 | PROVIDERS: ATTEND Family Medicine | DX: Z29.8 Encounter for other specified prophylactic measures (principal) ==

== ENCOUNTER 2018-10-24 16:00 | Outpatient (RCR) | payer MEDICARE, OTHER ==
[2018-10-26] MEDS ORDERED: WARF4TAB70 PO (08:33)
[2018-10-26] MEDS ORDERED: WARF-48 PO (08:33)
[2018-11-09] MEDS ORDERED: FLUT15.812 NS (09:59)
[2018-11-09] MEDS ORDERED: LEVO5TAB28 PO (09:59)
[2018-11-09] MEDS ORDERED: MAGN250T35 PO (09:59)
== END 2018-11-23 | disposition home or self-care (01) ==
LOC: CR3 16:00
PROVIDERS: ATTEND Family Medicine
DX: Z29.8 Encounter for other specified prophylactic measures (principal)

== ENCOUNTER 2018-10-26 08:13 | Outpatient (CLI) | payer MEDICARE, OTHER ==
[~2018-10-26] VITALS: Ht 170.2 cm; Wt 96.2 kg
[2018-10-26] MEDS ORDERED: WARF-48 PO (08:33)
[2018-10-26] MEDS ORDERED: WARF4TAB70 PO (08:33)
[2018-10-26 08:37] VITALS: BP 111/70
== END 2018-10-26 15:00 | disposition home or self-care (01) ==
LOC: PREOP 08:13
PROVIDERS: ATTEND Surgery
DX: Z01.818 Encounter for other preprocedural examination (principal)
CPT/HCPCS: 87081

== ENCOUNTER → 2018-10-26 | Outpatient (CLI) | payer MEDICARE, OTHER | LOC: CARD 09:00 | PROVIDERS: ATTEND Internal Medicine Cardiovascular Disease | DX: I25.10 Atherosclerotic heart disease of native coronary artery without angina pectoris (principal); R06.09 Other forms of dyspnea; I10 Essential (primary) hypertension; E78.5 Hyperlipidemia, unspecified; I08.1 Rheumatic disorders of both mitral and tricuspid valves | CPT/HCPCS: 93306 ==

== ENCOUNTER 2018-10-28 07:05 | Day surgery (SDC) | payer MEDICARE, OTHER ==
[~2018-10-28] VITALS: Ht 170.2 cm; Wt 96.2 kg
[2018-10-28] VITALS (9 sets, daily range): BP systolic 113–140; BP diastolic 72–95
[2018-10-28] MEDS ORDERED: LACTATED RINGERS 1,000 ML IV PRN (07:08)
[2018-10-28] MEDS ORDERED: ceFAZolin 2 GM IV Premixed 50 ML IV ONE (07:15)
[2018-10-28 07:47] LABS: INR 1.2 (0.8-1.4); PROTHROMBIN TIME PATIENT 15.5 SEC (12.2-14.7)
--- NOTE | 2018-10-28 07:58 | Progress Note-Pre Operative ---
Pre-Operative Progress Note H&P Reviewed The H&P was reviewed, patient examined and no changes noted. Date Seen by Provider: October 28, 2018 Time Seen by Provider: 07:57 Date H&P Reviewed: October 28, 2018 Time H&P Reviewed: 07:57 Pre-Operative Diagnosis: right lower ext lesion, scalp lesion GIO HADDAD DO October 28, 2018 07:58
[2018-10-28] MEDS ORDERED: LIDOCAINE PF 2% 5 ML (XYLOCAINE) VIAL ONE (08:30)
[2018-10-28] MEDS ORDERED: proPOfol 200 MG/20 ML (DIPRIVAN) VIAL IV ONE (08:30)
[2018-10-28] MEDS ORDERED: ONDANSETRON 4 MG/2 ML (SDV) Z0FRAN ONE ×2 (08:30→10:22)
[2018-10-28] MEDS ORDERED: SEVOFLURANE (ULTANE) 15 ML INHAL SOLN ONE (08:30)
[2018-10-28] MEDS ORDERED: fentaNYL INJECTION 100 MCG/2 ML AMP ONE (08:31)
[2018-10-28] MEDS ORDERED: BUP/EPI 0.5% 1:200,000 (SENSORCAINE) 30 ML VIAL ONE (09:04)
[2018-10-28] MEDS ORDERED: LIDOCAINE 1% INJ 20 ML 20 ML VIAL ONE (09:04)
[2018-10-28] MEDS ORDERED: BACITRACIN OINTMENT 28 GM TUBE ONE (10:01)
--- NOTE | 2018-10-28 10:11 | Progress Note-Post Operative ---
Post-Operative Progess Note Surgeon (s)/Monkey Breeder (s) Surgeon GIO HADDAD DO Monkey Breeder: na Pre-Operative Diagnosis right lower ext lesion, scalp lesion Post-Operative Diagnosis same Procedure & Operative Findings Date of Procedure 10/28/18 Procedure Performed/Findings excision scalp lesion 2x5cm and punch biopsy right lower ext 5 mm Anesthesia Type gen Estimated Blood Loss Estimated blood loss (mL): min Specimens/Packing Specimens Removed scalp lesion left lateral long suture, short suture anterior, 5 mm punch right lower extremity GIO HADDAD DO October 28, 2018 10:11
[2018-10-28] MEDS ORDERED: fentaNYL INJECTION 100 MCG/2 ML AMP IVP ONE (10:15)
[2018-10-28] MEDS ORDERED: ONDANSETRON 4 MG/2 ML (SDV) Z0FRAN IVP PRN (10:15)
[2018-10-28] MEDS ORDERED: MEPERIDINE (DEMEROL) INJ 50 MG/ML IVP ONE (10:15)
[2018-10-28] MEDS ORDERED: morphine INJ 10 MG/ML 1ML (SYR OR VIAL) IVP ONE (10:15)
[2018-10-28] MEDS ORDERED: morphine INJ 10 MG/ML 1ML (SYR OR VIAL) ONE (10:20)
--- NOTE | 2018-10-28 10:22 | Discharge Inst-Simple/Standard ---
Discharge Inst-Standard Patient Instructions/Follow Up Plan of Care/Instructions/FU: 12-14 days for suture removal Activity as Tolerated: Yes Discharge Diet: Regular Diet Other Inst to Patient Follow up Appt: Make appointment for 12-14 days. Instructions: No lifting greater than 10 pounds. No strenuous activity. May shower in 24 hours, no tub bath or soaking. Use incentive spirometer at home as directed. No Smoking Skin/Wound Care: May remove bandages in 24 hours. Keep area clean and dry. Symptoms to Report: Appetite Changes, Extremity Discoloration, Numbness/Tingling, Swelling Increased , Bleeding Excessive, Eyesight Changes, Pain Increased, Urine Color Change, Constipation(Persistent), Fever over 101 degree F, Pain/Pressure in chest, Urinating Difficulty, Cough Up/Vomit Blood, Heart Beat Irreg/Pounding, Pain/ Pressure in jaw, Vaginal Bleeding Increase, Cramps in feet or legs, Lightheadedness, Pain/Pressure in shoulder, Diarrhea(Persistent), Memory Changes Suddenly, Questions/Concerns, Weight gain consecutive days, Dizziness/ Fainting, Nausea/Vomiting, Shortness of Breath, Weight gain over 2 pounds If questions or concerns contact your physician Or seek help at emergency department. GIO HADDAD DO October 28, 2018 10:18
--- NOTE | 2018-10-28 11:11 | Anesthesia-General Post-Op ---
General Patient Condition Mental Status/LOC: Same as Preop Cardiovascular: Satisfactory Nausea/Vomiting: Absent Respiratory: Satisfactory Pain: Controlled Complications: Absent Post Op Complications Complications None Follow Up Care/Instructions Patient Instructions None needed. Anesthesia/Patient Condition Patient Condition Patient is doing well, no complaints, stable vital signs, no apparent adverse anesthesia problems. She was having some shoulder pain and dizziness initially in PACU, however that is currently better. CHARLOTTE THOMPSON DO October 28, 2018 11:11
--- NOTE | 2018-10-28 20:55 | OPERATIVE REPORT ---
DATE OF SERVICE: 10/28/2018 PREOPERATIVE DIAGNOSES: Scalp skin lesion and right lower extremity skin lesion. POSTOPERATIVE DIAGNOSES: Scalp skin lesion and right lower extremity skin lesion. PROCEDURE PERFORMED: Excision of scalp lesion of 2.5 cm of skin and subcutaneous tissue and a 5 mm punch biopsy of right lower extremity skin lesion. SURGEON: Gio Hernandez DO. ANESTHESIA: General. ESTIMATED BLOOD LOSS: Minimal. COMPLICATIONS: None. INDICATIONS: The patient is an 78-year-old female with skin lesion on the scalp. She wishes to have it removed. She understands risks and benefits of procedure. She also has a skin lesion on the right lower extremity that she would like to have biopsy. She understands risks and benefits of procedure. Consent was signed on the chart. DESCRIPTION OF PROCEDURE: The patient was taken to the operating suite, was prepped and draped in sterile fashion. Surgical pause was performed. Local anesthetic was infiltrated around the lesion and a 5 mm punch biopsy was used to take skin and subcutaneous tissue. This was then closed using 4-0 nylon in a simple interrupted fashion. The area was washed and dried and sterile bandage was applied. A scalp lesion was then prepped and draped in sterile fashion. Local anesthetic was infiltrated around the lesion. A 15-blade scalpel was used to make an incision around the lesion measuring 2 x 5 cm, skin and subcutaneous tissue was removed. Cautery was used to achieve hemostasis. Skin was then closed using 2-0 Prolene in a running fashion. The area was washed and dried and antibiotic ointment was placed over the incision. The patient tolerated the procedure well without any complications. She was taken to recovery room in stable condition. Job ID: [id number] DocumentID: [id number] Dictated Date: 10/28/2018 10:28:29 Optimization Manager Date: 10/28/2018 20:54:27 Dictated By: GIO HERNANDEZ DO
== END 2018-10-28 12:05 | disposition home or self-care (01) ==
LOC: SDC 07:05
PROVIDERS: ATTEND Surgery
DX: L57.0 Actinic keratosis (principal); I12.9 Hypertensive chronic kidney disease with stage 1 through stage 4 chronic kidney disease, or unspecified chronic kidney disease; N18.4 Chronic kidney disease, stage 4 (severe); I48.91 Unspecified atrial fibrillation; E03.9 Hypothyroidism, unspecified; E78.5 Hyperlipidemia, unspecified; I08.1 Rheumatic disorders of both mitral and tricuspid valves; I25.10 Atherosclerotic heart disease of native coronary artery without angina pectoris; D69.6 Thrombocytopenia, unspecified; Z85.3 Personal history of malignant neoplasm of breast; Z85.828 Personal history of other malignant neoplasm of skin; Z86.718 Personal history of other venous thrombosis and embolism; Z79.01 Long term (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; Z79.82 Long term (current) use of aspirin; Z79.899 Other long term (current) drug therapy; Z95.5 Presence of coronary angioplasty implant and graft; Z87.891 Personal history of nicotine dependence
CPT/HCPCS: 36415; 85610; 85730; 88305

== ENCOUNTER → 2018-11-02 | Outpatient (CLI) | payer MEDICARE, OTHER ==
[~2018-11-02] MED LIST changes: +CATHETER FLUSH 10 ML SYR IV PRN; +REGADENOSON 0.4 MG/5 ML SYR (LEXISCAN) IV ONE
[2018-11-02 09:40] VITALS: BP 124/85
--- NOTE | 2018-11-02 20:45 | STRESS TEST ---
DATE OF SERVICE: 11/02/2018 LEXISCAN MYOVIEW STRESS TEST REPORT REFERRING PHYSICIAN: Valerie Pisano MD Baseline heart rate is 50, baseline blood pressure 113/71, baseline EKG is atrial fibrillation with controlled rate. In summary, the patient was injected with 10.64 mCi of technetium-99 Myoview and the resting images were obtained. Then, the patient received 0.4 mg of Lexiscan followed by 27.8 mCi of technetium-99 Myoview. Throughout the test, there were no EKG changes. The resting and stress images were reviewed and compared in the short axis, horizontal long axis, and vertical long axis views. Review of the images showed breast attenuation with reversible ischemia involving the whole anterior wall and anterolateral wall. SSS is 6, SDS 5, TID value 1.03. On the gated images, the left ventricle appeared to be normal size with normal contractility. Calculated ejection fraction 63%, gated images are unreliable due to underlying atrial fibrillation. CONCLUSION: 1. The patient tolerated Lexiscan well. 2. Baseline atrial fibrillation persisted throughout test. 3. Breast attenuation with reversible ischemia involving the whole anterior wall and anterolateral wall. 4. Normal left ventricular size with normal contractility. Calculated ejection fraction 63%, gated images are unreliable due to underlying atrial fibrillation. Job ID: [id number] DocumentID: [id number] Dictated Date: 11/02/2018 16:54:19 Collective Bargaining Specialist Date: 11/02/2018 20:44:59 Dictated By: ANAHY HANNA MD
== END ==
LOC: CARD 07:26
PROVIDERS: ATTEND Internal Medicine Cardiovascular Disease
DX: I25.10 Atherosclerotic heart disease of native coronary artery without angina pectoris (principal); R06.09 Other forms of dyspnea; I10 Essential (primary) hypertension; E78.5 Hyperlipidemia, unspecified
CPT/HCPCS: 78452; 93017

== ENCOUNTER 2018-11-09 08:51 | Day surgery (SDC) | payer MEDICARE, OTHER ==
[~2018-11-09] VITALS: Ht 170.2 cm; Wt 94.8 kg
[2018-11-09] VITALS (10 sets, daily range): BP systolic 94–112; BP diastolic 56–79
[~2018-11-09 08:51] MED LIST changes: -CATHETER FLUSH 10 ML SYR IV PRN; -REGADENOSON 0.4 MG/5 ML SYR (LEXISCAN) IV ONE
[2018-11-09] MEDS ORDERED: LIDOCAINE 1% INJ 20 ML 20 ML VIAL ONE (09:01)
[2018-11-09] MEDS ORDERED: NS IV 1000 ML 1,000 ML ONE (09:01)
[2018-11-09] MEDS ORDERED: HEParin (CATH LAB) 2,000 ML IV ONE (09:01)
[2018-11-09] MEDS ORDERED: NS IV 1000 ML 1,000 ML IV SCH ×2 (09:05→11:52)
--- NOTE | 2018-11-09 09:33 | Diagnostic Imaging Report ---
Indication: Atrial fibrillation. Time of exam 9:16 AM Correlation is made with prior study from 07/02/2018. The heart is enlarged and stable. Lungs are clear. No infiltrate, effusion or pneumothorax is seen. Impression: Stable cardiomegaly. No acute feature is detected. Dictated by: Dictated on workstation # [id number]
[2018-11-09 09:34] LABS: HEMOGLOBIN 14.1 G/DL (11.5-16.0); MEAN PLATELET VOLUME 10.7 FL (7.4-10.4); RED CELL DISTRIBUTION WIDTH 17.4 % (10.0-14.5); WHITE BLOOD COUNT 9.6 10^3/uL (4.3-11.0)
[2018-11-09 09:45] LABS: INR 1.3 (0.8-1.4); PROTHROMBIN TIME PATIENT 17.1 SEC (12.2-14.7)
[2018-11-09 09:52] LABS: ALBUMIN 3.3 GM/DL (3.2-4.5); CALCIUM 9.8 MG/DL (8.5-10.1); CREATININE SERUM 1.1 MG/DL (0.60-1.30); POTASSIUM 4.6 MMOL/L (3.6-5.0); TOTAL PROTEIN 6.6 GM/DL (6.4-8.2)
[2018-11-09] MEDS ORDERED: MAGN250T35 PO (09:59)
[2018-11-09] MEDS ORDERED: FLUT15.812 NS (09:59)
[2018-11-09] MEDS ORDERED: LEVO5TAB28 PO (09:59)
[2018-11-09] MEDS ORDERED: fentaNYL INJECTION 100 MCG/2 ML AMP ONE (11:05)
[2018-11-09] MEDS ORDERED: MIDAZOLAM 5 MG/5 ML (VERSED) VIAL ONE (11:05)
--- NOTE | 2018-11-09 11:52 | Cardiac Procedure Note-CS/ASA ---
Pre-Procedure Note Pre-Op Procedure Note H&P Reviewed The H&P was reviewed, patient examined and no changes noted. Date H&P Reviewed: November 09, 2018 Time H&P Reviewed: 11:00 Conscious Sedation Pre-Proced Time 11:00 ASA Score 3 For ASA 3 and 4: Consider anesthesia and medical clearance. Also, for patients with a history of failed moderate sedation consider anesthesia. Airway Lungs Heart ASA score ASA 1: a normal healthy patient ASA 2: a patient with a mild systemic disease (mid diabetes, controlled hypertension, obesity x ASA 3: a patient with a severe systemic disease that limits activity (angina , COPD, prior Myocardial infarction) ASA 4: a patient with an incapacitating disease that is a constant threat to life (CHF, renal failure) ASA 5: a moribund patient not expected to survive 24 hrs. (ruptured aneurysm) ASA 6: a declared brain- patient whose organs are being harvested. For emergent operations, add the letter E after the classification Mallampati Classification Grade 3 Sedation Plan Analgesia, Amnesia, Plan communicated to team members, Discussed options with patient/fam, Discussed risks with patient/fam The patient is an appropriate candidate to undergo the planned procedure, sedation, and anesthesia. The patient immediately re-assessed prior to indication. ANAHY HANNA MD November 09, 2018 11:52
--- NOTE | 2018-11-09 11:54 | Discharge Inst-Post CATH ---
Discharge Inst-CATH/EP Post Cardiac Cath/EP D/C Inst Follow Up/Plan Appointment with Dr. HANNA's office in 2-4 weeks <b>CARDIAC CATH/EP PROCEDURE DISCHARGE INSTRUCTIONS</b> Cardiac Rehab Please be expecting a follow up call from Cardiac Rehab within in one week. ACTIVITY * Go Home directly and rest. * Limit activity of the leg (or wrist if it was used) for 7 days including aerobics, swimming, jogging, bicycling, etc. * Restrict stair-climbing for 7 days if possible, if not, climb up with your non -cath leg, then bring together on the same step. * Avoid lifting, pushing, pulling or excessive movement of the affected extremity for 7 days. * Customary sexual activity may be resumed after 2 days-use caution not to use a position that strains or causes pain to the affected extremity. * No driving for 24 hours. * NO SMOKING. * Avoid straining for bowel movements for 7 days. * Gentle walking on level ground is allowed. * Returning to work will depend on the type of procedure and the results. Your doctor will discuss this with you. CALL YOUR DOCTOR FOR ANY OF THE FOLLOWING: *If bleeding from the puncture site occurs- Apply gentle pressure to site with clean cloth and call your doctor or EMS. * If a knot or lump forms under the skin, increases in size, or causes pain. * If bruising appears to be worsening or moving further down your leg instead of disappearing. * Temperature above 101 F. CARE OF YOUR GROIN INCISION; * Bruising or purple discoloration of the skin near the puncture site is common. * You may shower only, no bathtub bathing for 5 days. Be careful to avoid slipping as your leg may feel stiff. * If a closure device was used on your femoral artery, please see the attached guide regarding care of the device and your leg. * Leave dressing on FOR 24 hours. CARE OF YOUR WRIST INCISION; * Bruising or purple discoloration of the skin near the puncture site is common. * You may shower. * DO NOT submerge wrist. * Leave dressing on FOR 24 hours. ANAHY HANNA MD November 09, 2018 11:54
--- NOTE | 2018-11-09 11:58 | Cardiac Cath Report ---
Cardiac Cath Report Physician (s)/Rubber Goods Tester (s) Physician ANAHY HANNA MD Pre-Procedure Diagnosis Pre-Procedure Diagnosis: chest pain, coronary artery disease Post-Procedure Note Procedure Start Date: November 09, 2018 Name of Procedure: cardiac catheterization Left ventriculogram Findings/Procedure Note PROCEDURE NOTE: 78 years old lady with history of coronary artery disease, had a stent to the LAD, had abnormal stress test with anterior wall ischemia, scheduled for cardiac catheterization possible PTCA. After explaining the procedure to the patient, all pros and cons were explained , all questions were answered. The patient signed the consent and then she was placed on the cardiac catheterization laboratory. Groin was prepped SL fashion local anesthesia was used. Sheath placed in the right femoral artery. Paul right and left catheter were used to access the coronary system. Pigtail was used to access the left ventricular cavity. Left ventriculogram was done At the end of the procedure the sheath was removed. Closure device was used FINDINGS: Hemodynamics LV 89/14, end-diastolic pressure 14 Aorta 94/63 mean of 78 ANATOMY: Left Main is free of obstructive disease Left Anterior Descending is mildly calcified, patent proximal stent, distally the artery tapered down into a very small artery. 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 Patent stent in the mid LAD, calcified LAD system tapered down into a very small artery distally with vzip-uj-necsatrd disease nonobstructive disease 2. Calcified right coronary system, dominant artery with sboz-bx-oqjiefug disease nonobstructive disease 3. Normal left ventricular size and systolic function estimated ejection fraction 60 percent DISCUSSION AND RECOMMENDATION: medical therapy is recommended no intervention is needed Anesthesia Type: Conscious Sedation Estimated blood loss (mL): 15 ml Contrast Amount: 60 ml Total Radiation Dose: 568 mGy Post-Procedure Diagnosis Post-operative diagnosis: Coronary artery disease Chronic paroxysmal atrial fibrillation Hypertension Hyperlipidemia ANAHY HANNA MD November 09, 2018 11:58
[2018-11-09] MEDS ORDERED: PATIENT MAY USE OWN MEDS, ALL PO SCH (12:00)
== END 2018-11-09 16:20 | disposition home or self-care (01) ==
LOC: CATH 08:51 → SDC 12:08 → CATH 16:20
PROVIDERS: ATTEND Internal Medicine Cardiovascular Disease
DX: I25.10 Atherosclerotic heart disease of native coronary artery without angina pectoris (principal); I48.0 Paroxysmal atrial fibrillation; I12.9 Hypertensive chronic kidney disease with stage 1 through stage 4 chronic kidney disease, or unspecified chronic kidney disease; N18.4 Chronic kidney disease, stage 4 (severe); E78.5 Hyperlipidemia, unspecified; I08.1 Rheumatic disorders of both mitral and tricuspid valves; I27.20 Pulmonary hypertension, unspecified; R60.9 Edema, unspecified; I65.23 Occlusion and stenosis of bilateral carotid arteries; Z79.899 Other long term (current) drug therapy; Z88.2 Allergy status to sulfonamides; Z79.82 Long term (current) use of aspirin; Z79.01 Long term (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; E03.9 Hypothyroidism, unspecified; Z85.3 Personal history of malignant neoplasm of breast; Z96.653 Presence of artificial knee joint, bilateral; Z87.891 Personal history of nicotine dependence; J44.9 Chronic obstructive pulmonary disease, unspecified; G47.33 Obstructive sleep apnea (adult) (pediatric); M85.80 Other specified disorders of bone density and structure, unspecified site
CPT/HCPCS: 36415; 71045; 80053; 85027; 85610; 85730; 87081; 93458

== ENCOUNTER → 2019-01-18 | Outpatient (RCR) | payer MEDICARE, OTHER ==
[~2019-01-18] MED LIST changes: +FLUT15.812 NS; +LEVO5TAB28 PO; +MAGN250T35 PO
== END | disposition home or self-care (01) ==
LOC: CR3 12-19 16:11
PROVIDERS: ATTEND Family Medicine
DX: Z29.8 Encounter for other specified prophylactic measures (principal)

== ENCOUNTER 2019-01-25 15:31 | Outpatient (RCR) | payer MEDICARE, OTHER | END 2019-02-22 | disposition home or self-care (01) | LOC: CR3 15:31 | PROVIDERS: ATTEND Family Medicine | DX: Z29.8 Encounter for other specified prophylactic measures (principal) ==

== ENCOUNTER 2019-03-29 15:46 | Outpatient (RCR) | payer MEDICARE, OTHER | END 2019-03-31 | disposition home or self-care (01) | LOC: CR3 15:46 | PROVIDERS: ATTEND Family Medicine | DX: Z29.8 Encounter for other specified prophylactic measures (principal) ==

== ENCOUNTER → 2019-04-03 | Outpatient (CLI) | payer MEDICARE, OTHER ==
[2019-04-03 13:57] LABS: BASOPHILS # (AUTO) 0.1 10^3/uL (0.0-0.1); BASOPHILS % (AUTO) 1 % (0-10); EOSINOPHILS # (AUTO) 0.3 10^3/uL (0.0-0.3); EOSINOPHILS % (AUTO) 3 % (0-10); HEMATOCRIT 47 % (35-52); HEMOGLOBIN 15.2 G/DL (11.5-16.0); LYMPHOCYTES # (AUTO) 2.4 X 10^3 (1.0-4.0); LYMPHOCYTES % (AUTO) 24 % (12-44); MEAN CORPUSCULAR HEMOGLOBIN 30 PG (25-34); MEAN CORPUSCULAR HGB CONC 33 G/DL (32-36); MEAN CORPUSCULAR VOLUME 92 FL (80-99); MEAN PLATELET VOLUME 10.6 FL (7.4-10.4); MONOCYTES # (AUTO) 0.9 X 10^3 (0.0-1.0); MONOCYTES % (AUTO) 9 % (0-12); NEUTROPHILS # (AUTO) 6.3 X 10^3 (1.8-7.8); NEUTROPHILS % (AUTO) 64 % (42-75); PLATELET COUNT 275 10^3/uL (130-400); WHITE BLOOD COUNT 9.9 10^3/uL (4.3-11.0)
[2019-04-03 14:32] LABS: ALBUMIN 3.3 GM/DL (3.2-4.5); BILIRUBIN,TOTAL 0.7 MG/DL (0.1-1.0); CALCIUM 9.2 MG/DL (8.5-10.1); CREATININE SERUM 1.06 MG/DL (0.60-1.30); POTASSIUM 4.2 MMOL/L (3.6-5.0); TOTAL PROTEIN 6.6 GM/DL (6.4-8.2)
== END ==
LOC: ONC 14:01
PROVIDERS: ATTEND Internal Medicine Hematology & Oncology
DX: C50.511 Malignant neoplasm of lower-outer quadrant of right female breast (principal); M85.80 Other specified disorders of bone density and structure, unspecified site; I25.10 Atherosclerotic heart disease of native coronary artery without angina pectoris; I10 Essential (primary) hypertension; E78.5 Hyperlipidemia, unspecified; E03.9 Hypothyroidism, unspecified
CPT/HCPCS: 36415; 80053; 85025; 99213

== ENCOUNTER 2019-04-21 13:03 | Outpatient (RCR) | payer MEDICARE, OTHER | END 2019-06-20 | disposition home or self-care (01) | PROVIDERS: ATTEND Family Medicine | DX: M54.5 Low back pain (principal); R53.1 Weakness; R26.89 Other abnormalities of gait and mobility ==

== ENCOUNTER → 2019-05-03 | Outpatient (RCR) | payer MEDICARE, OTHER | END | disposition home or self-care (01) | LOC: CR3 04-03 14:00 | PROVIDERS: ATTEND Family Medicine | DX: Z29.8 Encounter for other specified prophylactic measures (principal) ==

== ENCOUNTER 2019-05-22 16:33 | Outpatient (RCR) | payer MEDICARE, OTHER ==
[~2019-05-22 16:33] MED LIST changes: +ALEN35TA13 PO; -ALEN35TA32 PO; +FLUT15.845 NS; -FLUT15.88 NS
== END 2019-06-04 | disposition home or self-care (01) ==
LOC: CR3 16:33
PROVIDERS: ATTEND Family Medicine
DX: Z29.8 Encounter for other specified prophylactic measures (principal)

== ENCOUNTER 2019-06-12 13:16 | Outpatient (RCR) | payer MEDICARE, OTHER ==
[~2019-06-12 13:16] MED LIST changes: -ALEN35TA13 PO; +ALEN35TA32 PO; -FLUT15.845 NS; +FLUT15.88 NS
== END 2019-07-05 | disposition home or self-care (01) ==
LOC: CR3 13:16
PROVIDERS: ATTEND Family Medicine
DX: Z29.8 Encounter for other specified prophylactic measures (principal)

== ENCOUNTER → 2019-08-01 | Outpatient (CLI) | payer MEDICARE, OTHER ==
[~2019-08-01] MED LIST changes: +ALEN35TA13 PO; -ALEN35TA32 PO; +FLUT15.845 NS; -FLUT15.88 NS
--- NOTE | 2019-08-01 13:17 | Diagnostic Imaging Report ---
INDICATION: Routine screening. Comparison is made with prior mammogram from 07/25/2018 and 07/21/2017. 2-D and 3-D bilateral screening mammography was performed with CAD. Both breasts remain heterogeneously dense, limiting the sensitivity of mammography. Diffuse benign parenchymal and vascular calcifications are again noted. No dominant mass or malignant appearing microcalcifications are seen. Axillae are unremarkable. IMPRESSION: BI-RADS Category 2 No mammographic features suspicious for malignancy are identified. ACR BI-RADS Category 2: Benign findings. Result letter will be mailed to the patient. Note: At least 10% of breast cancer is not imaged by mammography. Dictated by: Dictated on workstation # [id number]
--- NOTE | 2019-08-01 14:17 | Diagnostic Imaging Report ---
INDICATION: Postmenopausal female. COMPARISON: 03/04/2017 FINDINGS: AP Spine L2-L4: [BMD (g/cm2): 1.056] [T-Score: -1.2] [Z-Score: -0.3] [BMD Previous: 1.048] [BMD % Change: 0.8] LT Hip Neck: [BMD (g/cm2): 0.677] [T-Score: -2.6] [Z-Score: -1.0] LT Hip Total: [BMD (g/cm2):0.747] [T-Score:-2.1] [Z-Score: -0.7] [BMD Previous: 0.743] [BMD % Change: 0.5] RT Hip Neck: [BMD (g/cm2):0.674] [T-Score:-2.6] [Z-Score:-1.0] RT Hip Total: [BMD (g/cm2):0.721] [T-score:-2.3] [Z-Score:-0.9] [BMD Previous:0.722] [BMD % Change:-0.1] *Indicates significant change from prior examination based on 95% confidence level. World Health Organization criteria for BMD interpretation classify patients as Normal (T-score at or above -1.0), Osteopenic (T-score between -1.0 and -2.5) or Osteoporotic (T-score at or below -2.5). LIMITATIONS AND MODIFICATION: Degenerative change in the lumbar spine may falsely elevate bone density. FRACTURE RISK (FRAX SCORE): Osteoporosis. IMPRESSION: 1. Osteoporosis. 2. No significant change in bone mineral density since prior examination. 3. See below National Osteoporosis Foundation guidelines on when to potentially initiate pharmacologic therapy. Based on the National Osteoporosis Foundation Guidelines, pharmacologic treatment should be initiated in any of the following, unless clinical conditions suggest otherwise: * Any patient with prior fragility fracture of the hip or vertebrae. A spine fracture indicates 5X risk for subsequent spine fracture and 2X risk for subsequent hip fracture. * Osteoporosis (T-score <-2.5). * Postmenopausal women and men age 50 and older with low bone mass/osteopenia (T-score between -1.0 and -2.5) by DXA and 10-year major osteoporotic fracture greater than 20% or a 10-year probability of hip fracture greater than 3%. These fracture risks are supplied above in the FRAX score, if applicable. * Clinician judgement and/or patient preferences may indicate treatment for people with 10-year fracture probabilities above or below these levels. Dictated by: Dictated on workstation # [id number]
== END ==
LOC: RAD 10:34
PROVIDERS: ATTEND Internal Medicine Hematology & Oncology
DX: Z12.31 Encounter for screening mammogram for malignant neoplasm of breast (principal); C50.511 Malignant neoplasm of lower-outer quadrant of right female breast; M81.0 Age-related osteoporosis without current pathological fracture; Z78.0 Asymptomatic menopausal state
CPT/HCPCS: 77067; 77080

== ENCOUNTER → 2019-08-16 | Outpatient (RCR) | payer MEDICARE, OTHER | END | disposition home or self-care (01) | LOC: CR3 07-17 16:00 | PROVIDERS: ATTEND Family Medicine | DX: Z29.8 Encounter for other specified prophylactic measures (principal) ==

== ENCOUNTER 2019-09-01 11:21 | Outpatient (RCR) | payer MEDICARE, OTHER ==
[2019-09-08] MEDS ORDERED: WARF-48 PO (13:06)
[2019-09-08] MEDS ORDERED: LEVO88TA54 PO ×2 (13:06→15:10)
[2019-09-08] MEDS ORDERED: ALEN35TA13 PO (13:06)
[2019-09-08] MEDS ORDERED: DILT30TA30 PO (14:26)
[2019-09-08] MEDS ORDERED: WARF4TAB70 PO (15:10)
[2019-09-08] MEDS ORDERED: ERGO50CA PO (15:10)
[2019-09-08] MEDS ORDERED: CALC-880 PO (15:10)
[2019-09-19] MEDS ORDERED: DILT-27 PO (09:35)
[2019-09-19] MEDS ORDERED: DOXY100T2 PO (09:35)
== END 2019-09-22 | disposition home or self-care (01) ==
LOC: CR3 11:21
PROVIDERS: ATTEND Family Medicine
DX: Z29.8 Encounter for other specified prophylactic measures (principal)

== ENCOUNTER 2019-09-12 09:19 | Inpatient (IN) | payer MEDICARE, OTHER ==
[~2019-09-12] VITALS: Ht 170 cm; Wt 103.5 kg
--- NOTE | 2019-09-12 08:36 | NUR ---
SARAH HOPKINS admitted to swing bed status to room 418-1, with an admitting diagnosis of CELLULITIS LEFT LOWER LEG, on 09/12/19 from acute inpatient status. PT/OT Therapy to evaluate patient for activity needs. SARAH HOPKINS and/or family introduced to surroundings, call light, bed controls, phone, TV, temperature control, lights, meal times, smoking policy, visitor policy, side rail policy, bathrooms, and showers. Patient rights given to patient in the handbook.. SARAH HOPKINS and/or family member verbalized understanding that [facility] is not responsible for the loss or damage to any personal effects or valuables that are kept in the patients possession during their hospitalization. The following care plans were discussed with SARAH HOPKINS: Discharge Plannning,PAIN CONTROL,IV THERAPY, and TESTS AND PROCEDURES. SARAH HOPKINS and/or family verbalizes understanding of the Interdisciplinary Patient Education. Patient and/or family were informed about the Rapid Response Team and its purpose. Call light with in reach and patient demonstrates understanding of how to use. SARAH HOPKINS reports no further needs at this time.
[~2019-09-12 09:19] MED LIST changes: +CALC-880 PO; +DILT30TA30 PO; +ERGO50CA PO; +LEVO88TA54 PO; +fentaNYL INJECTION 100 MCG/2 ML AMP IV PRN
--- OUTSIDE RECORDS SUMMARY | 2019-09-12 10:26 | XMS REPORT | Clinical Summary ---
Author Author [facility] Organization [facility] Address Unknown Phone Unavailable Care Team Providers Care [facility] [employer] Name Role Phone Valerie Pisano MD PCP Lashonda Mendoza RN Unavailable Unavailable Leslie Ortzi RN Unavailable Unavailable Source Comments Some departments are not documenting in the electronic medical record. If you d o not see the information that you expected, contact Release of Information in [facility] [employer] Information Management department at [phone] for further assistan ce in locating additional records.[facility] Allergies No Known Allergies Medications End Date Status Medication Sig Dispensed Refills Start Date Active levothyroxine (SYNTHROID) Take 125 mcg 0 125 mcg tablet by mouth every 48 hours. Alternate with 150mcg Active furosemide (LASIX) 40 mg Take 40 mg by 0 tablet mouth daily. Active levothyroxine (SYNTHROID) Take 150 mcg 0 150 mcg tablet by mouth every 48 hours. Alternate with 125mcg Active diltiazem (CARDIZEM) 60 Take 60 mg by 0 mg tablet mouth four times daily. Active atorvastatin (LIPITOR) 10 Take 10 mg by 0 mg tablet mouth daily. Active cholecalciferol (VITAMIN Take 1,000 0 D-3) 1,000 units tablet Units by mouth daily. Active warfarin (COUMADIN) 5 mg Take 1 tablet 0 tablet (5mg) on Wednesday, Wednesday, Wednesday, , Wednesday and 1.5 tablets (7.5mg) on Wednesday and Wednesday. Active fish oil /omega-3 fatty Take 1 Cap by 0 acids (SEA-OMEGA) mouth daily. 340/1000 mg capsule Active Problems Problem Noted Date Facial fracture 09/05/2015 Immunizations Name Administration Dates Next Due Td Vaccine 09/05/2015 Social History Date Tobacco Use Types Packs/Day Years Used Never Smoker Drinks/Week oz/Week Comments Alcohol Use No Sex Assigned at Date Recorded Not on file Industry Job Start Date Occupation Not on file Not on file Not on file Travel End Travel History Travel Start No recent travel history available. Last Filed Vital Signs Reading Time Taken Comments Vital Sign 104/63 09/06/2015 10:34 AM [employer]ONE P[employer]ER Blood Pressure 81 09/06/2015 10:34 AM BONE P[employer]ER Pulse 36.5 C (97.7 F) 09/06/2015 10:34 AM BONE PULLER Temperature - - Respiratory Rate 95% 09/06/2015 10:34 AM BONE PULLER Oxygen Saturation - - Inhaled Oxygen Concentration 97.1 kg (214 lb) 09/05/2015 11:45 PM BONE PULLER Weight - - Height - - Body Mass Index Plan of Treatment Health Maintenance Due Date Last Done Comments MEDICARE ANNUAL WELLNESS 1938 VISIT DTAP/TDAP VACCINES (1 - 1949 09/05/2015 Tdap) PHYSICAL (COMPREHENSIVE) 1956 EXAM SHINGLES RECOMBINANT 1988 VACCINE (1 of 2) OSTEOPOROSIS 2003 SCREENING/MONITORING PNEUMONIA (PCV13/PPSV23) 2003 VACCINES (1 of 2 - PCV13) INFLUENZA VACCINE 01/26/2019 Results Not on filefrom Last 3 Months Insurance Type Payer Benefit Subscriber ID Effective Phone Address Plan / Dates Group Medicare MEDICARE MEDICARE xxxxxxxxxx 2003-P PART A AND resent B Indemnity GENERIC COMMERCIAL GENERIC xxxxxxxxxx 2014-P COMMERCIAL resent [id number] Advance Directives Patient Firmware Developer Explanation Type Date Recorded Advance 09/05/2015 1:09 PM Directive/DPOA Date Inactivated Comments Code Status Date Activated 09/06/2015 5:49 PM Full Code 09/05/2015 6:09 PM Provider has discussed Code Status Yes w/Patient or Family?
--- OUTSIDE RECORDS SUMMARY | 2019-09-12 10:37 | XMS REPORT | CCD ---
Author Author Clara Pisano Organization [facility] Address [address] [place] [address] Phone Care Team Providers Care House Builder Name Role Phone PP Unavailable CCM Unavailable Summary Purpose Interface Exchange Insurance Providers Payer name Policy type / Coverage type Covered democrat ID Effective Begin Date Effective End Date WPS Medicare Part B Medicare Part B [id number] 2018 Unknown [employer] Medicare Part B [id number] 2018 Unknown Family history Sister Diagnosis Age At Onset defect Unknown Breast cancer Unknown Daughter Diagnosis Age At Onset Breast cancer Unknown Mother Diagnosis Age At Onset No Family Disease Entered N/A Social History Social History Element Codes Description Effective Dates Marital status Unknown M arried Lane 11/20/2014 Number of children Unknown 6 11/20/2014 Employment Unknown Retir ed 11/20/[address]: 0612996 Quit over 10 years ago 1963 11/20/2014 Alcohol history Unknown occasionally drinks alcohol 11/20/2014 Allergies, Adverse Reactions, Alerts Substance Reaction Codes Entered Date Inactivated Date Status SULFA(SULFONAMIDE AN TIBIOTICS) rash Unknown 11/20/2014 No Inactive Date Active Past Medical History Illness Codes Condition Status Onset Date Resolved Date Atrophy of thyroid ( acquired) ICD-9: 244.8 ICD-10: E03.4 Active 02/09/2017 Unknown Chronic atrial fibri llation ICD-9: 427.31 ICD-10: I48.2 Active 02/06/2016 Unknown Essential (primary) hypertension ICD-9: 401.9 ICD-10: I10 Active 04/30/2016 Unknown Low back pain ICD-9: 724.2 ICD-10: M54.5 Active 03/07/2019 Unknown Other fatigue ICD-9: 780.79 ICD-10: R53.83 Active 02/11/2016 Unknown Other hypotension ICD-9: 458.8 ICD-10: I95.89 Active 01/31/2019 Unknown Dysuria ICD-9: 788.1 ICD-10: R30.0 Active 08/26/2016 Unknown Urinary tract infect ion, site not specified ICD-9: 599.0 ICD-10: N39.0 Active 02/13/2016 Unknown Contusion of right l ower leg, initial encounter ICD-9: 924.4 ICD-10: S80.11XA 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/2018 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 ICD-9: V58.61 ICD-10: Z79.01 Active 02/06/2016 Unknown Other allergic rhinitis ICD-9: 477.8 ICD-10: J30.89 Active 07/31/2016 Unknown Other skin changes ICD- 9: 782.9 ICD-10: R23.8 Active 11/19/2015 Unknown Sebaceous cyst ICD-9: 706.2 ICD-10: L72.3 Active 08/16/2018 Unknown Encounter for screen ing mammogram for malignant neoplasm of breast ICD-9: V76.12 ICD-10: Z12.31 Active 07/29/2018 Unknown Hypothyroidism, unsp ecified ICD-9: 244.9 ICD-10: E03.9 Active 02/11/2016 Unknown Localized edema ICD-9: 782.3 ICD-10: R60.0 Active 04/30/2016 Unknown Abnormal results of kidney function studies ICD-9: 794.4 ICD-10: R94.4 Active 06/30/2018 Unknown Encounter for immuni zation ICD-9: V03.9 ICD-10: Z23 Active 03/16/2017 Unknown Cervicalgia ICD-9: 723.1 ICD-10: M54.2 Active 06/15/2017 Unknown Other muscle spasm ICD- 9: 728.85 ICD-10: M62.838 Active 06/15/2017 Unknown Laceration without f oreign body of other finger without damage to nail, initial encounter ICD-9: 883.0 ICD-10: S61.218A Active 04/01/2017 Unknown Other specified hypo thyroidism ICD-9: 244.8 ICD-10: E03.8 Active 05/30/2015 Unknown Tinea corporis ICD-9: 110.5 ICD-10: B35.4 Active 10/13/2016 Unknown Other acute sinusitis ICD-9: 461.8 ICD-10: J01.80 Active 07/31/2016 Unknown Acute recurrent maxi llary sinusitis ICD-9: 461.0 ICD-10: J01.01 Active 07/22/2016 Unknown Other allergic rhinitis ICD-9: 477.9 ICD-10: J30.89 Active 04/30/2016 Unknown Cellulitis of left l ower limb ICD-9: 682.7 ICD-10: L03.116 Active 04/05/2016 Unknown Iliotibial band synd rafael, right leg ICD-9: 728.89 ICD-10: M76.31 Active 12/12/2015 Unknown Pain in right foot ICD- 9: 729.5 ICD-10: M79.671 Active 11/19/2015 Unknown Muscle spasm of back ICD-9: 724.8 ICD-10: M62.830 Active 09/16/2015 Unknown ALLERGIC RHINITIS ICD-9: 477.9 Active 02/04/2015 Unknown Hypertension Unknown Active 11/20/2014 Unknow n Hypothryroidism Unknown Active 11/20/2014 Unknow n ACTINIC KERATOSIS ICD-9: 702.0 Active 11/19/2014 Unknown ESSENTIAL HYPERTENSION ICD-9: 401.9 Active 11/19/2014 Unknown HYPOTHYROIDISM ICD-9: 244.9 Active 11/19/2014 Unknown [facility] current us 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 therapy ICD-9: V58.61 Active 10/19/2014 Unknown Problems Condition Codes Effectiv e Dates Condition Status Atrophy of thyroid ( acquired) ICD-9: 244.8 ICD-10: E03.4 02/09/2017 Active Chronic atrial fibri llation ICD-9: 427.31 ICD-10: I48.2 02/06/2016 Active Essential (primary) hypertension ICD-9: 401.9 ICD-10: I10 04/30/2016 Active Low back pain ICD-9: 724.2 ICD-10: M54.5 03/07/2019 Active Other fatigue ICD-9: 780.79 ICD-10: R53.83 02/11/2016 Active Other hypotension ICD-9: 458.8 ICD-10: I95.89 01/31/2019 Active Dysuria ICD-9: 788.1 ICD-10: R30.0 08/26/2016 Active Urinary tract infect ion, site not specified ICD-9: 599.0 ICD-10: N39.0 02/13/2016 Active Contusion of right l ower leg, initial encounter ICD-9: 924.4 ICD-10: S80.11XA 11/17/2018 Active [facility] (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 ICD-9: V58.61 ICD-10: Z79.01 02/06/2016 Active Other allergic rhinitis ICD-9: 477.8 ICD-10: J30.89 07/31/2016 Active Other skin changes ICD- 9: 782.9 ICD-10: R23.8 11/19/2015 Active Sebaceous cyst ICD-9: 706.2 ICD-10: L72.3 08/16/2018 Active Encounter for screen ing mammogram for malignant neoplasm of breast ICD-9: V76.12 ICD-10: Z12.31 07/29/2018 Active Hypothyroidism, unsp ecified ICD-9: 244.9 ICD-10: E03.9 02/11/2016 Active Localized edema ICD-9: 782.3 ICD-10: R60.0 04/30/2016 Active Abnormal results of kidney function studies ICD-9: 794.4 ICD-10: R94.4 06/30/2018 Active Encounter for immuni zation ICD-9: V03.9 ICD-10: Z23 03/16/2017 Active Cervicalgia ICD-9: 723.1 ICD-10: M54.2 06/15/2017 Active Other muscle spasm ICD- 9: 728.85 ICD-10: M62.838 06/15/2017 Active Laceration without f oreign body of other finger without damage to nail, initial encounter ICD-9: 883.0 ICD-10: S61.218A 04/01/2017 Active Other specified hypo thyroidism ICD-9: 244.8 ICD-10: E03.8 05/30/2015 Active Tinea corporis ICD-9: 110.5 ICD-10: B35.4 10/13/2016 Active Other acute sinusitis ICD-9: 461.8 ICD-10: J01.80 07/31/2016 Active Acute recurrent maxi llary sinusitis ICD-9: 461.0 ICD-10: J01.01 07/22/2016 Active Other allergic rhinitis ICD-9: 477.9 ICD-10: J30.89 04/30/2016 Active Cellulitis of left l ower limb ICD-9: 682.7 ICD-10: L03.116 04/05/2016 Active Iliotibial band synd rafael, right leg ICD-9: 728.89 ICD-10: M76.31 12/12/2015 Active Pain in right foot ICD- 9: 729.5 ICD-10: M79.671 11/19/2015 Active Muscle spasm of back ICD-9: 724.8 ICD-10: M62.830 09/16/2015 Active ALLERGIC RHINITIS ICD-9: 477.9 02/04/2015 Active Hypertension Unknown 11/20/2014 Active Hypothryroidism Unknown 11/20/2014 Active ACTINIC KERATOSIS ICD-9: 702.0 11/19/2014 Active ESSENTIAL HYPERTENSION ICD-9: 401.9 11/19/2014 Active HYPOTHYROIDISM ICD-9: 244.9 11/19/2014 Active [facility] current us 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 therapy ICD-9: V58.61 10/19/2014 Active Medications Medication Codes Instruc tions Start Date Stop Date Sta tus Fill Instructions levothyroxine 88 mcg tablet RxNorm: 415942 1 Tablet(s) PO daily 03/07/2019 10/02/2019 Active Pyridium 200 mg tablet RxNorm: 6832956 1 Tablet(s) PO TID PRN 12/05/2018 No Stop Date Active Keflex 500 mg capsule RxNorm: 747396 1 Capsule(s) PO TID 12/05/2018 12/11/2018 Inactive Keflex 500 mg capsule RxNorm: 017056 1 Capsule(s) PO TID 11/17/2018 11/21/2018 Inactive doxycycline hyclate 100 mg capsule RxNorm: 2385443 1 Capsule(s) PO BID 10/31/2018 10/30/2018 In active doxycycline hyclate 100 mg capsule RxNorm: 5775099 1 Capsule(s) PO BID 10/31/2018 11/06/2018 In active Keflex 500 mg capsule RxNorm: 913957 1 Capsule(s) PO TID 10/27/2018 10/30/2018 Inactive ceftriaxone 500 mg s olution for injection RxNorm: 0248326 Inj 10/27/2018 10/27/2018 Inactive Coumadin 4 mg tablet RxNorm: 518185 1 Tablet(s) PO daily 08/16/2018 08/10/2019 Active this is an update to her RX - she will l et you know when she needs refill triamcinolone aceton sreekanth 0.025 % topical cream RxNorm: 7388636 1 Application TOP QI D 08/16/2018 No Stop Date Active levothyroxine 125 mc g tablet RxNorm: 329171 TAKE ONE TABLET BY [facility] DAILY ON WEDNESDAY, WED, AND WEDNESDAY, AND 1/2 TABLET ON , , WED AND WEDNESDAY. TAKE ON AN EMPTY STOMACH 08/04/2018 03/06/2019 Inactive meclizine 25 mg tablet RxNorm: 734984 1 Tablet(s) PO TID as needed Dizziness 07/22/2018 No Stop Date Active meclizine 25 mg tablet RxNorm: 818838 1 Tablet(s) PO TID as needed Dizziness 07/19/2018 07/21/2018 In active furosemide 40 mg tablet RxNorm: 144693 1 Tablet(s) BID take 1.5 tabs twice a da y x 7 days then 1 pill daily thereafter 07/11/2018 02/05/2019 Inactive Coumadin 4 mg tablet RxNorm: 040353 1 Tablet(s) PO daily except 1.5 pills on WEDNESDAY AND Wednesday07/11/2018 08/15/2018 Inactive this is an update to her RX - she will let you know when she needs refill warfarin 5 mg tablet RxNorm: 261373 Tablet(s) TAKE ONE TABLET BY MOUTH DAILY EXCEPT / TAKE 4 MG 04/06/2018 08/22/2019 Active diltiazem 60 mg tablet RxNorm: 621754 1/2 Tablet(s) PO QID 03/24/2018 No Stop Date Active levothyroxine 125 mc g tablet RxNorm: 654984 TAKE ONE TABLET BY [facility] DAILY ON WEDNESDAY, WED, AND WEDNESDAY, AND 1/2 TABLET ON , , WED AND WEDNESDAY. TAKE ON AN EMPTY STOMACH 02/02/2018 07/31/2018 Inactive Coumadin 4 mg tablet RxNorm: 387622 TAKE ONE TABLET BY MOUTH DAILY ON AND Wednesday10/14/2017 07/10/2018 Inactive nystatin 100,000 uni t/gram topical cream RxNorm: 289501 1 Application TOP TID 08/17/2017 No Stop Date Active Voltaren 1 % topical gel RxNorm: 221211 2 Gram(s) TOP TID luiz ly to shoulder and neck 08/17/2017 No Stop Date Active triamcinolone aceton sreekanth 0.025 % topical cream RxNorm: 9860390 1 Application TOP BI D 08/17/2017 08/15/2018 In active levothyroxine 125 mc g tablet RxNorm: 099364 1 Tablet(s) UD 1 pill wed/wed/wed, 1/2 pill //sat/sun take ON AN EMPTY STOMACH 08/05/2017 02/01/2018 Inactive Coumadin 4 mg tablet RxNorm: 563484 1 Tablet(s) PO Wed/07/29/2017 10/13/2017 Inactive warfarin 5 mg tablet RxNorm: 565168 TAKE 1 AND 1/2 TABLETS BY MOUTH ON AND WEDNESDAY. TAKE ONLY 1 TABLET BY MOUTH ALL OTHER DAYS OF THE WEEK 07/12/2017 04/05/2018 In active furosemide 40 mg tablet RxNorm: 347328 Tablet(s) BID TAKE ONE TABLET BY MOUTH D AILY 06/15/2017 07/10/2018 Inactive Voltaren 1 % topical gel RxNorm: 424907 2 Gram(s) TOP TID luiz ly to shoulder and neck 06/15/2017 08/16/2017 Inactive Keflex 500 mg capsule RxNorm: 147898 1 Capsule(s) PO TID 04/01/2017 04/07/2017 Inactive furosemide 40 mg tablet RxNorm: 424862 TAKE ONE TABLET BY MOUTH DAILY 03/18/2017 06/14/2017 In active Claritin-D 12 Hour 5 mg-120 mg tablet,extended release RxNorm: 1091498 1 Tablet(s) PO BID 03/16/2017 05/14/2017 Inactive Lipitor 20 mg tablet RxNorm: 601528 1 Tablet(s) PO daily 02/09/2017 03/10/2017 Inactive Nasonex 50 mcg/actua tion [place] RxNorm: 5018619 1 [place] NASAL BID 02/09/2017 09/06/2017 Inactive levothyroxine 125 mc g tablet RxNorm: 280107 1 Tablet(s) UD 1 pill wed/wed/wed, 1/2 pill //wed/wed take ON AN EMPTY STOMACH 02/09/2017 08/04/2017 Inactive lisinopril 2.5 mg ta blet RxNorm: 116783 1 Tablet(s) PO daily 02/09/2017 03/10/2017 Inactive fluorouracil 5 % top ical cream RxNorm: 785035 1 Application TOP BID 02/09/2017 02/18/2017 Inactive potassium chloride E R 20 mEq tablet,extended release RxNorm: 791636 Tablet(s) TAKE ONE TABLET BY MOUTH DAILY 02/08/2017 02/02/2018 Inactive warfarin 5 mg tablet RxNorm: 720536 TAKE 1 AND 1/2 TABLETS BY MOUTH ON AND WEDNESDAY. TAKE ONLY 1 TABLET BY MOUTH ALL OTHER DAYS OF THE WEEK 12/14/2016 05/30/2017 In active potassium chloride E R 20 mEq tablet,extended release RxNorm: 519938 TAKE ONE TABLET BY MOUTH DAILY 10/29/2016 01/26/2017 Inactive warfarin 5 mg tablet RxNorm: 885812 TAKE 1 AND 1/2 TABLETS BY MOUTH ON AND WEDNESDAY. TAKE ONLY 1 TABLET BY MOUTH ALL OTHER DAYS OF THE WEEK 10/27/2016 12/13/2016 In active nystatin 100,000 uni t/gram topical cream RxNorm: 340275 1 Application TOP TID 10/13/2016 08/16/2017 In active nitrofurantoin 50 mg capsule RxNorm: 249044 1 Capsule(s) PO BID 09/04/2016 09/03/2016 Inactive nitrofurantoin macro crystal 50 mg capsule RxNorm: 714979 1 Capsule(s) PO BID 09/04/2016 09/10/2016 In active Cipro 500 mg tablet RxNorm: 479363 1 Tablet(s) PO BID 08/26/2016 10/12/2016 Inactive Zyrtec 10 mg tablet RxNorm: 3828497 1 Tablet(s) PO daily 07/31/2016 08/29/2016 Inactive prednisone 20 mg tablet RxNorm: 071324 2 Tablet(s) PO daily 07/31/2016 08/02/2016 Inactive Kenalog 40 mg/mL zohra pension for injection RxNorm: 8003969 Milliliter(s) Inj 07/22/2016 07/22/2016 In active ceftriaxone 500 mg s olution for injection RxNorm: 0967993 Inj 07/22/2016 07/22/2016 Inactive Flonase Allergy Reli ef 50 mcg/actuation nasal spray,suspension RxNorm: 2955059 1 [place] NASAL BID 07/22/2016 08/20/2016 Inactive azithromycin 250 mg tablet RxNorm: 422384 2 Tablet(s) PO on day #1, then 1 pill daily x 4 days 07/22/2016 10/12/2016 Inactive warfarin 5 mg tablet RxNorm: 694855 TAKE 1 AND 1/2 TABLETS BY MOUTH ON AND WEDNESDAY. TAKE ONLY 1 TABLET BY MOUTH ALL OTHER DAYS OF THE WEEK 07/09/2016 09/30/2016 In active levothyroxine 125 mc g tablet RxNorm: 733805 Tablet(s) TAKE ONE TA BLET BY MOUTH DAILY ON AN EMPTY STOMACH 06/23/2016 02/08/2017 Inactive levothyroxine 125 mc g tablet RxNorm: 795597 TAKE ONE TABLET BY [facility] DAILY ON AN EMPTY STOMACH 06/23/2016 06/22/2016 Inactive levothyroxine 125 mc g tablet RxNorm: 164460 TAKE ONE TABLET BY [facility] DAILY ON AN EMPTY STOMACH 06/23/2016 08/04/2017 Inactive cetirizine 10 mg tablet RxNorm: 6728098 TAKE ONE TABLET BY MOUTH DAILY 06/16/2016 10/13/2016 In active furosemide 40 mg tablet RxNorm: 911003 Tablet(s) TAKE ONE TABLET BY MOUTH DAILY 06/05/2016 12/01/2016 In active cetirizine 10 mg tablet RxNorm: 2542402 1 Tablet(s) PO daily 05/01/2016 05/30/2016 Inactive Levaquin 250 mg tablet RxNorm: 571247 Tablet(s) PO 2 pills day one and 1 pill day 2-7 04/06/2016 07/21/2016 Inactive warfarin 5 mg tablet RxNorm: 823890 Tablet(s) 1/2 TABLETS BY MOUTH ON AND WEDNESDAY. TAKE ONLY 1 TABLET BY MOUTH ALL OTHER DAYS OF THE WEEK 03/18/2016 07/07/2016 In active triamcinolone aceton sreekanth 0.025 % topical cream RxNorm: 3818881 1 Application TOP BI D 03/10/2016 08/16/2017 In active potassium chloride E R 20 mEq tablet,extended release RxNorm: 121778 1 Tablet(s) PO daily 03/04/2016 06/01/2016 Inactive Levaquin 250 mg tablet RxNorm: 779140 Tablet(s) PO 2 pills day one and 1 pill day 2-7 03/04/2016 04/05/2016 Inactive Levaquin 250 mg tablet RxNorm: 412419 Tablet(s) PO 2 pills day one and 1 pill day 2-7 03/03/2016 03/03/2016 Inactive potassium chloride E R 20 mEq tablet,extended release RxNorm: 463888 1 Tablet(s) PO daily 03/03/2016 03/03/2016 Inactive Cipro 500 mg tablet RxNorm: 816813 1 Tablet(s) PO BID 02/20/2016 07/21/2016 Inactive Cipro 500 mg tablet RxNorm: 810482 1 Tablet(s) PO BID 02/20/2016 02/19/2016 Inactive furosemide 40 mg tablet RxNorm: 259857 TAKE ONE TABLET BY MOUTH DAILY 01/27/2016 01/26/2016 In active warfarin 5 mg tablet RxNorm: 518889 TAKE 1 AND 1/2 TABLETS BY MOUTH ON AND WEDNESDAY. TAKE ONLY 1 TABLET BY MOUTH ALL OTHER DAYS OF THE WEEK 01/27/2016 01/26/2016 In active furosemide 40 mg tablet RxNorm: 339333 TAKE ONE TABLET BY MOUTH DAILY 01/27/2016 06/04/2016 In active warfarin 5 mg tablet RxNorm: 537372 TAKE 1 AND 1/2 TABLETS BY MOUTH ON AND WEDNESDAY. TAKE ONLY 1 TABLET BY MOUTH ALL OTHER DAYS OF THE WEEK 01/27/2016 03/17/2016 In active potassium chloride E R 20 mEq tablet,extended release RxNorm: 041194 1 Tablet(s) PO daily 11/20/2015 03/02/2016 Inactive furosemide 40 mg tablet RxNorm: 661660 TAKE ONE TABLET BY MOUTH DAILY 11/12/2015 01/26/2016 In active Zovirax 5 % topical cream RxNorm: 176617 TOP QID 0 09/24/2015 09/23/2015 Inactive Zovirax 5 % topical cream RxNorm: 475681 TOP QID 0 09/24/2015 11/19/2015 Inactive nystatin 100,000 uni t/gram topical cream RxNorm: 991529 1 Application TOP TID 09/17/2015 10/12/2016 In active warfarin 5 mg tablet RxNorm: 736179 TAKE 1 AND 1/2 TABLETS BY MOUTH ON AND WEDNESDAY. TAKE ONLY 1 TABLET BY MOUTH ALL OTHER DAYS OF THE WEEK 08/19/2015 01/05/2016 In active loratadine 10 mg tablet RxNorm: 595603 1 Tablet(s) PO daily 07/30/2015 07/23/2016 Inactive loratadine 10 mg tablet RxNorm: 422818 1 Tablet(s) PO daily 07/30/2015 07/29/2015 Inactive furosemide 40 mg tablet RxNorm: 166143 TAKE ONE TABLET BY MOUTH DAILY 06/24/2015 11/11/2015 In active levothyroxine 125 mc g tablet RxNorm: 703354 1 Tablet(s) PO daily 05/31/2015 05/24/2016 Inactive furosemide 40 mg tablet RxNorm: 093548 1 Tablet(s) PO daily 04/05/2015 06/23/2015 Inactive warfarin 5 mg tablet RxNorm: 585691 TAKE 1 AND 1/2 TABLETS BY MOUTH ON AND WEDNESDAY. TAKE ONLY 1 TABLET BY MOUTH ALL OTHER DAYS OF THE WEEK 02/12/2015 07/29/2015 In active Flonase Allergy Reli ef 50 mcg/actuation nasal spray,suspension RxNorm: 2 [place] NASAL daily 02/05/2015 03/06/2015 Inactive Kenalog 40 mg/mL zohra pension for injection RxNorm: 1181276 Milliliter(s) Inj 02/05/2015 02/05/2015 In active warfarin 5 mg tablet RxNorm: 405243 Take 7.5mg (1 1/2 tablets) Wednesday and and 1 Tablet(s) PO (5mg) all other days 01/11/2015 02/09/2015 Inactive levothyroxine 125 mc g tablet RxNorm: 047634 1 Tablet(s) PO every other day 01/01/2015 05/30/2015 In active alternate with 150 levothyroxine 150 mc g tablet RxNorm: 399929 1 Tablet(s) PO every other day 01/01/2015 05/30/2015 In active alternate with 125 loratadine 10 mg tablet RxNorm: 098781 Tablet(s) PO as needed No Start Date Active Calcium + D oral RxNorm: 601810 oral No Start Date Active Aspirin Low Dose 81 mg tablet,delayed release RxNorm: 571656 1 Tablet(s) PO daily No Start Date Active magnesium 250 mg tablet RxNorm: 1 Tablet(s) PO daily No Start Date Active Vitamin D3 2,000 uni t tablet RxNorm: 846703 2 Tablet(s) PO daily No Start Date Active Fosamax 35 mg tablet RxNorm: 198215 1 Tablet(s) PO QW No Start Date Active levothyroxine 125 mc g tablet RxNorm: 589629 1 Tablet(s) PO daily No Start Date 12/31/2014 Inactive Vitamin C oral RxNorm: 1151 oral No Start Date 03/06/2019 Inactive Fish Oil 1,000 mg ca psule RxNorm: 1 Capsule(s) PO TID No Start Date 03/06/2019 Inactive levothyroxine 150 mc g tablet RxNorm: 903950 1 Tablet(s) PO daily No Start Date 12/31/2014 Inactive diltiazem 60 mg tablet RxNorm: 121683 1 Tablet(s) PO QID No Start Date 03/23/2018 Inactive meclizine 25 mg tablet RxNorm: 829117 1 Tablet(s) PO TID as needed Dizziness No Start Date 07/18/2018 Inactive furosemide 40 mg tablet RxNorm: 224618 1 Tablet(s) PO daily No Start Date 04/04/2015 Inactive potassium chloride RxNorm: miscellaneous No Start Date 11/19/2015 Inactive Vitamin D2 oral RxNorm: 4018 oral No Start Date 05/31/2015 Inactive warfarin 5 mg tablet RxNorm: 366635 1 Tablet(s) PO daily No Start Date 01/10/2015 Inactive Coumadin 4 mg tablet RxNorm: 269881 1 Tablet(s) PO Wed/ No Start Date 07/28/2017 Inactive Medication Administered Medication Codes Instruc tions Start Date Status ceftriaxone 500 mg solution for injection RxNorm: 5882943 10/27/2018 No longer A ctive ceftriaxone 500 mg solution for injection RxNorm: 2640493 07/22/2016 No longer A ctive Kenalog 40 mg/mL suspension for injection RxNorm: 3084366 Milliliter 07/22/2016 No longer Active Kenalog 40 mg/mL suspension for injection RxNorm: 2411974 Milliliter 02/05/2015 No longer Active Immunizations Vaccine Codes Date Status Influenza CVX: 141 03/24 completed Pneumococcal (Adult) CVX: 33 03/24/2018 completed Influenza CVX: 141 03/16 completed Pneumococcal (Adult) CVX: 133 03/16/2017 completed Influenza CVX: 141 05/06 completed Influenza CVX: 141 04/28 completed Pneumococcal CVX: 33 06/1999 completed Assessments Condition Codes Effectiv e Dates Chronic atrial fibrillation ICD-10: I48.2 ICD-9: 427.31 03/07/2019 Atrophy of thyroid (acquired) ICD-10 : E03.4 ICD-9: 244.8 03/07/2019 Low back pain ICD-10: M54.5 ICD-9: 724.2 03/07/2019 Essential (primary) hypertension ICD -10: I10 ICD-9: 401.9 03/07/2019 Other hypotension ICD-10: I95.89 ICD-9: 458.8 01/31/2019 Other fatigue ICD-10: R53.83 ICD-9: 780.79 01/31/2019 Dysuria ICD-10: R30.0 ICD-9: 788.1 01/10/2019 Urinary tract infection, site not specified ICD-10: N39.0 ICD-9: 599.0 12/05/2018 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 89 ICD-9: 477.8 09/27/2018 Other skin changes ICD-10: R23.8 ICD-9: 782.9 09/27/2018 Sebaceous cyst ICD-10: L72.3 ICD-9: 706.2 08/16/2018 Encounter for screening mammogram for ma lignant neoplasm of breast ICD-10: Z12.31 ICD-9: V76.12 07/29/2018 Localized edema ICD-10: R60.0 ICD-9: 782.3 07/11/2018 Hypothyroidism, unspecified ICD-10: E03.9 ICD-9: 244.9 07/11/2018 Abnormal results of kidney function studies ICD-10: R94.4 ICD-9: 794.4 06/30/2018 Encounter for immunization ICD-10: Z 23 ICD-9: V03.9 03/24/2018 Cervicalgia ICD-10: M54.2 ICD-9: 723.1 06/15/2017 Other muscle spasm ICD-10: M62.838 ICD-9: 728.85 06/15/2017 Laceration without foreign body of other finger without damage to nail, initial encounter ICD-10: S61.218A ICD-9: 883.0 04/01/2017 Tinea corporis ICD-10: B35.4 ICD-9: 110.5 10/13/2016 Other acute sinusitis ICD-10: J01.80 ICD-9: 461.8 07/31/2016 Acute recurrent maxillary sinusitis ICD-10: J01.01 ICD-9: 461.0 07/22/2016 Other allergic rhinitis ICD-10: J30. 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 ICD-9: V58.61 10/19/2014 Reason For Visit Reason For Visit Effective Dates Notes hypertension 03/07/2019 hypertension 01/31/2019 dysuria 01/10/2019 dysuria 12/05/2018 pain, limb 11/17/2018 urinary urgency 10/27/2018 hypertension 09/27/2018 hypertension 08/16/2018 hypertension 07/11/2018 hypertension 03/24/2018 hypertension 11/18/2017 edema 09/30/2017 sinus congestion 08/17/2017 vertigo 06/15/2017 skin lesion 04/01/2017 vertigo 03/16/2017 vertigo 02/09/2017 hypertension 10/13/2016 sinus congestion 07/31/2016 sinus congestion 07/22/2016 nasal allergies 05/01/2016 edema 04/06/2016 foot pain 03/10/2016 foot pain 03/06/2016 foot pain 03/03/2016 low back and leg pain 02/07/2016 low back and leg pain 12/13/2015 abnormal bleeding and bruising 12/03/2015 abnormal bleeding and bruising 11/20/2015 Hospital Follow Up 09/17/2015 ER for fall edema 05/31/2015 hypothyroid 02/05/2015 back pain 11/20/2014 Results Observation Observation Code Item Item Code Result Date Pt [id number] PT 26.2 seconds 03/14/2019 Pt [id number] INR 2.5 03/14/2019 Pt Bkq7237 Low Intensity - 1.5-2.0 03/14/2019 Pt Vul7930 Mod intensity - 2.0-3.0 03/14/2019 Pt Nwf7849 Hi intensity - 3.0-4.0 03/14/2019 Tsh Ord6 TSH (3rd IS) 1.96 uIU/mL 03/01/2019 Pt Sgt9997 PT 32.9 seconds 03/01/2019 Pt Ajl7619 INR 3.3 03/01/2019 Pt Jjn0528 Low Intensity - 1.5-2.0 03/01/2019 Pt Avj6092 Mod intensity - 2.0-3.0 03/01/2019 Pt Kis6306 Hi intensity - 3.0-4.0 03/01/2019 Free T4 Qty996 FREE T4 1.50 ng/dL 03/01/2019 Pt Bqm2646 PT 23.4 seconds 01/31/2019 Pt Pmz8146 INR 2.1 01/31/2019 Pt Zaq2841 Low Intensity - 1.5-2.0 01/31/2019 Pt Wua9716 Mod intensity - 2.0-3.0 01/31/2019 Pt Ldi7132 Hi intensity - 3.0-4.0 01/31/2019 Pt Rkx9546 PT 23.6 seconds 01/06/2019 Pt Rqf2795 INR 2.2 01/06/2019 Pt Sjc9141 Low Intensity - 1.5-2.0 01/06/2019 Pt Wgi3776 Mod intensity - 2.0-3.0 01/06/2019 Pt Lhj6212 Hi intensity - 3.0-4.0 01/06/2019 Pt Mqx3906 PT 23.8 seconds 12/09/2018 Pt Wez0292 INR 2.2 12/09/2018 Pt Ukp9723 Low Intensity - 1.5-2.0 12/09/2018 Pt Geb7031 Mod intensity - 2.0-3.0 12/09/2018 Pt Osw7445 Hi intensity - 3.0-4.0 12/09/2018 Pt Oae2087 PT 22.3 seconds 11/23/2018 Pt Ghm9662 INR 2.0 11/23/2018 Pt Kve1581 Low Intensity - 1.5-2.0 11/23/2018 Pt Mfs1185 Mod intensity - 2.0-3.0 11/23/2018 Pt Wpn0895 Hi intensity - 3.0-4.0 11/23/2018 Pt Xfa6457 PT 18.0 seconds 11/14/2018 Pt Mad3279 INR 1.5 11/14/2018 Pt Fsa0430 Low Intensity - 1.5-2.0 11/14/2018 Pt Zcs0655 Mod intensity - 2.0-3.0 11/14/2018 Pt Tka4449 Hi intensity - 3.0-4.0 11/14/2018 Pt Erk4964 PT 17.3 seconds 11/03/2018 Pt Vqu6003 INR 1.5 11/03/2018 Pt Zko1243 Low Intensity - 1.5-2.0 11/03/2018 Pt Jkb4875 Mod intensity - 2.0-3.0 11/03/2018 Pt Chu9595 Hi intensity - 3.0-4.0 11/03/2018 Urine Culture Ucult Comp lete >100,000 col/ml aerobic grow th sent to ref lab 10/28/2018 Pt Waq6339 PT 24.4 seconds 10/24/2018 Pt Tjv1100 INR 2.2 10/24/2018 Pt Vod7835 Low Intensity - 1.5-2.0 10/24/2018 Pt Wjv0139 Mod intensity - 2.0-3.0 10/24/2018 Pt Cjg0610 Hi intensity - 3.0-4.0 10/24/2018 Lipid Ord30 CHOL 143 mg/dL 10/24/2018 Lipid Ord30 HDL 52.0 mg/dl 10/24/2018 Lipid Ord30 TRIG 78 mg/dL 10/24/2018 Lipid Ord30 LDL 75 mg/dL 10/24/2018 Lipid Ord30 C/HDL 2.8 Ratio 10/24/2018 Comp Metabolic Ygq916 NA 142 mEq/L 10/24/2018 Comp Metabolic Ikx879 K 4.6 mEq/L 10/24/2018 Comp Metabolic Mcy427 CL 107 mEq/L 10/24/2018 Comp Metabolic Ueo759 CO2 27.0 mEq/L 10/24/2018 Comp Metabolic Zan137 AN ION GAP 13 10/24/2018 Comp Metabolic Air603 GL UCOSE 82 mg/dL 10/24/2018 Comp Metabolic Fzr583 Cr eat 1.1 mg/dL 10/24/2018 Comp Metabolic Vuh591 eG FR 54 ml/min/1.73m2 10/24 Comp Metabolic Qjl697 BUN 23 mg/dL 10/24/2018 Comp Metabolic Exg892 B/ C Ratio 21.9 Ratio 10/24/2018 Comp Metabolic Zje352 CA LCIUM 9.0 mg/dL 10/24/2018 Comp Metabolic Rgc551 AL K PHOS 64 U/L 10/24/2018 Comp Metabolic Cmp140 T(SGOT) 18 U/L 10/24/2018 Comp Metabolic Sdy763 AL T(SGPT) 14 U/L 10/24/2018 Comp Metabolic Bgh764 BI LI T 0.5 mg/dL 10/24/2018 Comp Metabolic Tut269 AL BUMIN 3.0 g/dL 10/24/2018 Comp Metabolic Wmv000 TP RO 5.2 g/dL 10/24/2018 Comp Metabolic Gjp900 GL OB 2.2 g/dL 10/24/2018 Comp Metabolic Umv536 A/ G Ratio 1.4 Ratio 10/24/2018 Comp Metabolic Kwv065 Os mo 286 mOsmo 10/24/2018 Pt Ufk8881 PT 23.8 seconds 09/29/2018 Pt Qzp1684 INR 2.2 09/29/2018 Pt Sjt4770 Low Intensity - 1.5-2.0 09/29/2018 Pt Nyf6101 Mod intensity - 2.0-3.0 09/29/2018 Pt Bkj7178 Hi intensity - 3.0-4.0 09/29/2018 Pt Ddf7664 PT 19.6 seconds 09/19/2018 Pt Vwl4937 INR 1.7 09/19/2018 Pt Sln5854 Low Intensity - 1.5-2.0 09/19/2018 Pt Pso3733 Mod intensity - 2.0-3.0 09/19/2018 Pt Hfx8885 Hi intensity - 3.0-4.0 09/19/2018 Pt Dcz1724 PT 16.8 seconds 09/12/2018 Pt Zfu9401 INR 1.4 09/12/2018 Pt Kto6365 Low Intensity - 1.5-2.0 09/12/2018 Pt Dki1877 Mod intensity - 2.0-3.0 09/12/2018 Pt Llc2812 Hi intensity - 3.0-4.0 09/12/2018 Pt Hek3066 PT 13.1 seconds 09/07/2018 Pt Wht3648 INR 1.0 09/07/2018 Pt Etw1391 Low Intensity - 1.5-2.0 09/07/2018 Pt Zfx2140 Mod intensity - 2.0-3.0 09/07/2018 Pt Auk6091 Hi intensity - 3.0-4.0 09/07/2018 Pt Pcb3160 PT 24.1 seconds 08/23/2018 Pt Kvm8039 INR 2.2 08/23/2018 Pt Umm4039 Low Intensity - 1.5-2.0 08/23/2018 Pt Fhx0637 Mod intensity - 2.0-3.0 08/23/2018 Pt Klc1196 Hi intensity - 3.0-4.0 08/23/2018 Pt Uwy2910 PT 30.9 seconds 08/16/2018 Pt Gbb1008 INR 3.0 08/16/2018 Pt Xvl1550 Low Intensity - 1.5-2.0 08/16/2018 Pt Wdz5866 Mod intensity - 2.0-3.0 08/16/2018 Pt Slw0977 Hi intensity - 3.0-4.0 08/16/2018 Pt Ujy3872 PT 29.5 seconds 08/01/2018 Pt Yxt4105 INR 2.8 08/01/2018 Pt Voq9661 Low Intensity - 1.5-2.0 08/01/2018 Pt Dki9724 Mod intensity - 2.0-3.0 08/01/2018 Pt Ydq6236 Hi intensity - 3.0-4.0 08/01/2018 Pt Ory8979 PT 24.2 seconds 07/25/2018 Pt Qtg5835 INR 2.2 07/25/2018 Pt Efz7185 Low Intensity - 1.5-2.0 07/25/2018 Pt Mxk7395 Mod intensity - 2.0-3.0 07/25/2018 Pt Wth4655 Hi intensity - 3.0-4.0 07/25/2018 Pt Jpo5859 PT 38.6 seconds 07/19/2018 Pt Ufx6593 INR 4.0 07/19/2018 Pt Ddv9560 Low Intensity - 1.5-2.0 07/19/2018 Pt Jpu2190 Mod intensity - 2.0-3.0 07/19/2018 Pt Sfr7194 Hi intensity - 3.0-4.0 07/19/2018 Pt Utk8659 PT 25.7 seconds 07/11/2018 Pt Xjq7059 INR 2.4 07/11/2018 Pt Bep9754 Low Intensity - 1.5-2.0 07/11/2018 Pt Nfo2737 Mod intensity - 2.0-3.0 07/11/2018 Pt Ndz4280 Hi intensity - 3.0-4.0 07/11/2018 Pt Kei6514 PT 18.5 seconds 07/08/2018 Pt Lfc4172 INR 1.6 07/08/2018 Pt Uqd5939 Low Intensity - 1.5-2.0 07/08/2018 Pt Cec1439 Mod intensity - 2.0-3.0 07/08/2018 Pt Qff5326 Hi intensity - 3.0-4.0 07/08/2018 Pt Xgq0341 PT 27.3 seconds 06/29/2018 Pt Xpn5125 INR 2.6 06/29/2018 Pt Npi4668 Low Intensity - 1.5-2.0 06/29/2018 Pt Vaq9176 Mod intensity - 2.0-3.0 06/29/2018 Pt Tls2244 Hi intensity - 3.0-4.0 06/29/2018 Pt Xli5257 PT 24.0 seconds 05/26/2018 Pt Mzn1140 INR 2.2 05/26/2018 Pt Tme8554 Low Intensity - 1.5-2.0 05/26/2018 Pt Qrq7846 Mod intensity - 2.0-3.0 05/26/2018 Pt Agy7577 Hi intensity - 3.0-4.0 05/26/2018 Tsh Ord6 TSH (3rd IS) 2.09 uIU/mL 03/25/2018 Cbc With Differential Ord2 WBC 8.83 K/ul 03/25/2018 Cbc With Differential Ord2 RBC 4.76 M/ul 03/25/2018 Cbc With Differential Ord2 HGB 14.1 g/dl 03/25/2018 Cbc With Differential Ord2 HCT 43.6 % 03/25/2018 Cbc With Differential Ord2 Neut% 61.6 % 03/25/2018 Cbc With Differential Ord2 MCV 91.6 fl 03/25/2018 Cbc With Differential Ord2 Lymph% 24.8 % 03/25/2018 Cbc With Differential Ord2 MCH 29.6 pg 03/25/2018 Cbc With Differential Ord2 Roberts% 9.5 % 03/25/2018 Cbc With Differential Ord2 MCHC 32.3 pg 03/25/2018 Cbc With Differential Ord2 Eos% 3.6 % 03/25/2018 Cbc With Differential Ord2 PLT 322 K/ul 03/25/2018 Cbc With Differential Ord2 Baso% 0.5 % 03/25/2018 Cbc With Differential Ord2 RDW 17.2 % 03/25/2018 Cbc With Differential Ord2 Neut ABS# 5.44 K/ul 03/25/2018 Cbc With Differential Ord2 Lymph ABS# 2.19 K/ul 03/25/2018 Cbc With Differential Ord2 Roberts ABS# 0.8 K/ul 03/25/2018 Cbc With Differential Ord2 Eos ABS# 0.3 K/ul 03/25/2018 Cbc With Differential Ord2 Baso ABS# 0.0 K/ul 03/25/2018 Lipid Ord30 CHOL 156 mg/dL 03/25/2018 Lipid Ord30 HDL 52.0 mg/dl 03/25/2018 Lipid Ord30 TRIG 98 mg/dL 03/25/2018 Lipid Ord30 LDL 84 mg/dL 03/25/2018 Lipid Ord30 C/HDL 3.0 Ratio 03/25/2018 Free T4 Qky935 FREE T4 1.73 ng/dL 03/25/2018 Comp Metabolic Nsy785 NA 143 mEq/L 03/25/2018 Comp Metabolic Huo147 K 4.6 mEq/L 03/25/2018 Comp Metabolic Wpm081 CL 108 mEq/L 03/25/2018 Comp Metabolic Pch380 CO2 26.0 mEq/L 03/25/2018 Comp Metabolic Xqb926 AN ION GAP 14 03/25/2018 Comp Metabolic Ihd521 GL UCOSE 87 mg/dL 03/25/2018 Comp Metabolic Jtf123 Cr eat 1.2 mg/dL 03/25/2018 Comp Metabolic Ywd184 eG FR 48 ml/min/1.73m2 03/25 Comp Metabolic Acd107 BUN 18 mg/dL 03/25/2018 Comp Metabolic Sdf086 B/ C Ratio 15.5 Ratio 03/25/2018 Comp Metabolic Gau243 CA LCIUM 9.1 mg/dL 03/25/2018 Comp Metabolic Kkt394 AL K PHOS 58 U/L 03/25/2018 Comp Metabolic Jhc336 T(SGOT) 21 U/L 03/25/2018 Comp Metabolic Das867 AL T(SGPT) 13 U/L 03/25/2018 Comp Metabolic Nly894 BI LI T 0.7 mg/dL 03/25/2018 Comp Metabolic Sku490 AL BUMIN 3.2 g/dL 03/25/2018 Comp Metabolic Hwk212 TP RO 5.5 g/dL 03/25/2018 Comp Metabolic Zvp231 GL OB 2.3 g/dL 03/25/2018 Comp Metabolic Grm529 A/ G Ratio 1.4 Ratio 03/25/2018 Comp Metabolic Gwo762 Os mo 286 mOsmo 03/25/2018 Pt Lan8219 PT 29.0 seconds 03/22/2018 Pt Jos3716 INR 2.7 03/22/2018 Pt Nyb8187 Low Intensity - 1.5-2.0 03/22/2018 Pt Hwa1432 Mod intensity - 2.0-3.0 03/22/2018 Pt Hvt1891 Hi intensity - 3.0-4.0 03/22/2018 Pt Ipv7437 PT 27.1 seconds 02/25/2018 Pt Aqk3674 INR 2.5 02/25/2018 Pt Cbs2784 Low Intensity - 1.5-2.0 02/25/2018 Pt Evd1900 Mod intensity - 2.0-3.0 02/25/2018 Pt Knz8670 Hi intensity - 3.0-4.0 02/25/2018 Pt Kyu0212 PT 26.1 seconds 01/26/2018 Pt Tvm4219 INR 2.4 01/26/2018 Pt Xrx7754 Low Intensity - 1.5-2.0 01/26/2018 Pt Awh0810 Mod intensity - 2.0-3.0 01/26/2018 Pt Nbe2659 Hi intensity - 3.0-4.0 01/26/2018 Pt Ful6513 PT 22.8 seconds 12/24/2017 Pt Zru2104 INR 2.0 12/24/2017 Pt Qre7249 Low Intensity - 1.5-2.0 12/24/2017 Pt Nws9882 Mod intensity - 2.0-3.0 12/24/2017 Pt Rcx3686 Hi intensity - 3.0-4.0 12/24/2017 Pt Rsd9639 PT 29.4 seconds 11/18/2017 Pt Nkw7000 INR 2.8 11/18/2017 Pt Fab7168 Low Intensity - 1.5-2.0 11/18/2017 Pt Lff7521 Mod intensity - 2.0-3.0 11/18/2017 Pt Qmn6785 Hi intensity - 3.0-4.0 11/18/2017 Pt Yvw1094 PT 26.6 seconds 09/13/2017 Pt Ldp4772 INR 2.4 09/13/2017 Pt Ijv3698 Low Intensity - 1.5-2.0 09/13/2017 Pt Css9649 Mod intensity - 2.0-3.0 09/13/2017 Pt Xka2331 Hi intensity - 3.0-4.0 09/13/2017 Pt Lrt4129 PT 28.2 seconds 08/10/2017 Pt Uzw4531 INR 2.6 08/10/2017 Pt Agi4751 Low Intensity - 1.5-2.0 08/10/2017 Pt Ube3696 Mod intensity - 2.0-3.0 08/10/2017 Pt Ggj3195 Hi intensity - 3.0-4.0 08/10/2017 Pt Vxo6880 PT 33.9 seconds 07/27/2017 Pt Wlu2843 INR 3.3 07/27/2017 Pt Hos8264 Low Intensity - 1.5-2.0 07/27/2017 Pt Pku9248 Mod intensity - 2.0-3.0 07/27/2017 Pt Xpd6617 Hi intensity - 3.0-4.0 07/27/2017 Pt Erb4925 PT 29.1 seconds 06/29/2017 Pt Wbx4321 INR 2.7 06/29/2017 Pt Pyx2177 Low Intensity - 1.5-2.0 06/29/2017 Pt Chw7737 Mod intensity - 2.0-3.0 06/29/2017 Pt Oap8202 Hi intensity - 3.0-4.0 06/29/2017 Pt Vxy3249 PT 30.3 seconds 06/11/2017 Pt Rfe3666 INR 2.9 06/11/2017 Pt Nyi7700 Low Intensity - 1.5-2.0 06/11/2017 Pt Swm4692 Mod intensity - 2.0-3.0 06/11/2017 Pt Njl4063 Hi intensity - 3.0-4.0 06/11/2017 Pt Yox1078 PT 39.1 seconds 06/07/2017 Pt Ika4801 INR 3.9 06/07/2017 Pt Nrx1604 Low Intensity - 1.5-2.0 06/07/2017 Pt Kvc7922 Mod intensity - 2.0-3.0 06/07/2017 Pt Aja0634 Hi intensity - 3.0-4.0 06/07/2017 Pt Hoq5483 PT 34.2 seconds 05/26/2017 Pt Guo4387 INR 3.3 05/26/2017 Pt Cpq5603 Low Intensity - 1.5-2.0 05/26/2017 Pt Cow9529 Mod intensity - 2.0-3.0 05/26/2017 Pt Rbv1119 Hi intensity - 3.0-4.0 05/26/2017 Comp Metabolic Rqg114 NA 138 mEq/L 04/23/2017 Comp Metabolic Wqc352 K 4.2 mEq/L 04/23/2017 Comp Metabolic Jgz771 CL 101 mEq/L 04/23/2017 Comp Metabolic Sre287 CO2 28.0 mEq/L 04/23/2017 Comp Metabolic Nvy627 AN ION GAP 13 04/23/2017 Comp Metabolic Phd834 GL UCOSE 89 mg/dL 04/23/2017 Comp Metabolic Syo136 Cr eat 1.1 mg/dL 04/23/2017 Comp Metabolic Ghw182 eG FR 51 ml/min/1.73m2 04/23 Comp Metabolic Qyj488 BUN 26 mg/dL 04/23/2017 Comp Metabolic Lqt443 B/ C Ratio 23.9 Ratio 04/23/2017 Comp Metabolic Mml449 CA LCIUM 9.4 mg/dL 04/23/2017 Comp Metabolic Kmy113 AL K PHOS 95 U/L 04/23/2017 Comp Metabolic Prx367 T(SGOT) 18 U/L 04/23/2017 Comp Metabolic Mfn410 AL T(SGPT) 17 U/L 04/23/2017 Comp Metabolic Hdm466 BI LI T 0.7 mg/dL 04/23/2017 Comp Metabolic Ueo359 AL BUMIN 3.2 g/dL 04/23/2017 Comp Metabolic Syd596 TP RO 5.6 g/dL 04/23/2017 Comp Metabolic Svl345 GL OB 2.4 g/dL 04/23/2017 Comp Metabolic Fvd097 A/ G Ratio 1.3 Ratio 04/23/2017 Comp Metabolic Ext739 Os mo 280 mOsmo 04/23/2017 Pt Mni2114 PT 28.6 seconds 04/23/2017 Pt Zni7749 INR 2.7 04/23/2017 Pt Fsk0928 Low Intensity - 1.5-2.0 04/23/2017 Pt Aeh5307 Mod intensity - 2.0-3.0 04/23/2017 Pt Sxe1088 Hi intensity - 3.0-4.0 04/23/2017 Pt Epo3460 PT 24.4 seconds 03/16/2017 Pt Yni0948 INR 2.2 03/16/2017 Pt Usf9740 Low Intensity - 1.5-2.0 03/16/2017 Pt Ebb9303 Mod intensity - 2.0-3.0 03/16/2017 Pt Led6590 Hi intensity - 3.0-4.0 03/16/2017 Pt Ckg2090 PT 28.2 seconds 02/24/2017 Pt Jrf6657 INR 2.6 02/24/2017 Pt Cgo1545 Low Intensity - 1.5-2.0 02/24/2017 Pt Ela7987 Mod intensity - 2.0-3.0 02/24/2017 Pt Ldx6554 Hi intensity - 3.0-4.0 02/24/2017 Pt Qyw6607 PT 26.8 seconds 02/08/2017 Pt Vgp9229 INR 2.5 02/08/2017 Pt Ryd8857 Low Intensity - 1.5-2.0 02/08/2017 Pt Grp5467 Mod intensity - 2.0-3.0 02/08/2017 Pt Ahi4698 Hi intensity - 3.0-4.0 02/08/2017 Lipid Ord30 CHOL 150 mg/dL 01/25/2017 Lipid Ord30 HDL 55.0 mg/dl 01/25/2017 Lipid Ord30 TRIG 66 mg/dL 01/25/2017 Lipid Ord30 LDL 82 mg/dL 01/25/2017 Lipid Ord30 C/HDL 2.7 Ratio 01/25/2017 Pt Ynd5783 PT 29.9 seconds 01/25/2017 Pt Ahp1413 INR 2.8 01/25/2017 Pt Ebg7279 Low Intensity - 1.5-2.0 01/25/2017 Pt Cxw1323 Mod intensity - 2.0-3.0 01/25/2017 Pt Jti2003 Hi intensity - 3.0-4.0 01/25/2017 Comp Metabolic Xih075 NA 143 mEq/L 01/25/2017 Comp Metabolic Nio880 K 3.9 mEq/L 01/25/2017 Comp Metabolic Xag900 CL 108 mEq/L 01/25/2017 Comp Metabolic Bwk000 CO2 23.0 mEq/L 01/25/2017 Comp Metabolic Sao458 AN ION GAP 16 01/25/2017 Comp Metabolic Tbx450 GL UCOSE 80 mg/dL 01/25/2017 Comp Metabolic Jsa278 Cr eat 1.0 mg/dL 01/25/2017 Comp Metabolic Edj037 eG FR 57 ml/min/1.73m2 01/25 Comp Metabolic Qxf426 BUN 25 mg/dL 01/25/2017 Comp Metabolic Pzr485 B/ C Ratio 25.0 Ratio 01/25/2017 Comp Metabolic Chp646 CA LCIUM 8.5 mg/dL 01/25/2017 Comp Metabolic Csf826 AL K PHOS 81 U/L 01/25/2017 Comp Metabolic Khh049 T(SGOT) 19 U/L 01/25/2017 Comp Metabolic Iib584 AL T(SGPT) 23 U/L 01/25/2017 Comp Metabolic Vzj825 BI LI T 0.5 mg/dL 01/25/2017 Comp Metabolic Jxt796 AL BUMIN 2.9 g/dL 01/25/2017 Comp Metabolic Ezg908 TP RO 5.1 g/dL 01/25/2017 Comp Metabolic Hld129 GL OB 2.2 g/dL 01/25/2017 Comp Metabolic Pyu256 A/ G Ratio 1.3 Ratio 01/25/2017 Comp Metabolic Ohd095 Os mo 288 mOsmo 01/25/2017 Cbc With Differential Ord2 WBC 10.22 K/ul 01/25/2017 Cbc With Differential Ord2 RBC 4.89 M/ul 01/25/2017 Cbc With Differential Ord2 HGB 15.0 g/dl 01/25/2017 Cbc With Differential Ord2 HCT 45.2 % 01/25/2017 Cbc With Differential Ord2 Neut% 57.6 % 01/25/2017 Cbc With Differential Ord2 MCV 92.4 fl 01/25/2017 Cbc With Differential Ord2 Lymph% 30.3 % 01/25/2017 Cbc With Differential Ord2 MCH 30.7 pg 01/25/2017 Cbc With Differential Ord2 Roberts% 8.2 % 01/25/2017 Cbc With Differential Ord2 MCHC 33.2 pg 01/25/2017 Cbc With Differential Ord2 Eos% 3.4 % 01/25/2017 Cbc With Differential Ord2 PLT 258 K/ul 01/25/2017 Cbc With Differential Ord2 Baso% 0.5 % 01/25/2017 Cbc With Differential Ord2 RDW 16.5 % 01/25/2017 Cbc With Differential Ord2 Neut ABS# 5.88 K/ul 01/25/2017 Cbc With Differential Ord2 Lymph ABS# 3.10 K/ul 01/25/2017 Cbc With Differential Ord2 Roberts ABS# 0.8 K/ul 01/25/2017 Cbc With Differential Ord2 Eos ABS# 0.4 K/ul 01/25/2017 Cbc With Differential Ord2 Baso ABS# 0.1 K/ul 01/25/2017 Free T4 Ako555 FREE T4 2.09 ng/dL 01/25/2017 Tsh Ord6 hTSH II 0.46 uIU/mL 01/25/2017 Pt Zny6550 PT 26.1 seconds 11/26/2016 Pt Tgl3094 INR 2.6 11/26/2016 Pt Cbe9800 Low Intensity - 1.5-2.0 11/26/2016 Pt Ixn3592 Mod intensity - 2.0-3.0 11/26/2016 Pt Qzs6054 Hi intensity - 3.0-4.0 11/26/2016 Pt Khz4385 PT 26.2 seconds 10/29/2016 Pt Uvk8049 INR 2.6 10/29/2016 Pt Qfw2240 Low Intensity - 1.5-2.0 10/29/2016 Pt Bhf6569 Mod intensity - 2.0-3.0 10/29/2016 Pt Aqk5951 Hi intensity - 3.0-4.0 10/29/2016 Pt Fhz5410 PT 20.8 seconds 10/13/2016 Pt Lyk9260 INR 1.9 10/13/2016 Pt Izf7802 Low Intensity - 1.5-2.0 10/13/2016 Pt Qtb9884 Mod intensity - 2.0-3.0 10/13/2016 Pt Crj1880 Hi intensity - 3.0-4.0 10/13/2016 Pt Hcq7410 PT 26.5 seconds 10/01/2016 Pt Mhm4098 INR 2.6 10/01/2016 Pt Dxp4290 Low Intensity - 1.5-2.0 10/01/2016 Pt Bjz5618 Mod intensity - 2.0-3.0 10/01/2016 Pt Zwt7316 Hi intensity - 3.0-4.0 10/01/2016 Pt Ifd3130 PT 24.6 seconds 09/14/2016 Pt Btd6353 INR 2.4 09/14/2016 Pt Uhr2405 Low Intensity - 1.5-2.0 09/14/2016 Pt Yhw1020 Mod intensity - 2.0-3.0 09/14/2016 Pt Kdd4385 Hi intensity - 3.0-4.0 09/14/2016 Pt Fwa4893 PT 18.0 seconds 09/07/2016 Pt Cnd9304 INR 1.6 09/07/2016 Pt Bdc9733 Low Intensity - 1.5-2.0 09/07/2016 Pt Ana1974 Mod intensity - 2.0-3.0 09/07/2016 Pt Vmn6392 Hi intensity - 3.0-4.0 09/07/2016 Pt Lbd0461 PT 23.7 seconds 08/12/2016 Pt Glk2613 INR 2.2 08/12/2016 Pt Kek6586 Low Intensity - 1.5-2.0 08/12/2016 Pt Puy6426 Mod intensity - 2.0-3.0 08/12/2016 Pt Zbp2046 Hi intensity - 3.0-4.0 08/12/2016 Pt Gkn9484 PT 21.6 seconds 07/27/2016 Pt Qnh3892 INR 2.0 07/27/2016 Pt Wjt0302 Low Intensity - 1.5-2.0 07/27/2016 Pt Lgb0060 Mod intensity - 2.0-3.0 07/27/2016 Pt Cot4530 Hi intensity - 3.0-4.0 07/27/2016 Pt Upx3715 PT 26.0 seconds 06/15/2016 Pt Ulh1140 INR 2.5 06/15/2016 Pt Rnb6786 Low Intensity - 1.5-2.0 06/15/2016 Pt Vav9599 Mod intensity - 2.0-3.0 06/15/2016 Pt Mdg2682 Hi intensity - 3.0-4.0 06/15/2016 Pt Ciq5781 PT 18.8 seconds 06/01/2016 Pt Uxy8652 INR 1.7 06/01/2016 Pt Vrh7646 Low Intensity - 1.5-2.0 06/01/2016 Pt Ctx0300 Mod intensity - 2.0-3.0 06/01/2016 Pt Qaj7370 Hi intensity - 3.0-4.0 06/01/2016 Pt Nqs8949 PT 20.8 seconds 05/12/2016 Pt Hhx9240 INR 1.9 05/12/2016 Pt Cpz6043 Low Intensity - 1.5-2.0 05/12/2016 Pt Ssh1849 Mod intensity - 2.0-3.0 05/12/2016 Pt Sja8775 Hi intensity - 3.0-4.0 05/12/2016 Pt Ajd3863 PT 24.5 seconds 04/10/2016 Pt Iho5048 INR 2.4 04/10/2016 Pt Zbq8820 Low Intensity - 1.5-2.0 04/10/2016 Pt Pjk0227 Mod intensity - 2.0-3.0 04/10/2016 Pt Mdq1992 Hi intensity - 3.0-4.0 04/10/2016 Pt Tfu3468 PT 26.4 seconds 03/10/2016 Pt Hec2793 INR 2.6 03/10/2016 Pt Dna0633 Low Intensity - 1.5-2.0 03/10/2016 Pt Dth1436 Mod intensity - 2.0-3.0 03/10/2016 Pt Meq9105 Hi intensity - 3.0-4.0 03/10/2016 Pt Bhd8148 PT 24.9 seconds 03/06/2016 Pt Jud7288 INR 2.4 03/06/2016 Pt Bzw1641 Low Intensity - 1.5-2.0 03/06/2016 Pt Ijc8454 Mod intensity - 2.0-3.0 03/06/2016 Pt Wnj3884 Hi intensity - 3.0-4.0 03/06/2016 Pt Tol1332 PT 21.9 seconds 02/25/2016 Pt Nce6220 INR 2.0 02/25/2016 Pt Hcr5321 Low Intensity - 1.5-2.0 02/25/2016 Pt Zvi9937 Mod intensity - 2.0-3.0 02/25/2016 Pt Voy8136 Hi intensity - 3.0-4.0 02/25/2016 Pt Xdi9493 PT 21.8 seconds 02/21/2016 Pt Kkl0538 INR 2.0 02/21/2016 Pt Jhy9449 Low Intensity - 1.5-2.0 02/21/2016 Pt Gzz6859 Mod intensity - 2.0-3.0 02/21/2016 Pt Qpm1686 Hi intensity - 3.0-4.0 02/21/2016 Culture Urine [id number] URI NE CULTURE SEE NOTES 02/20/2016 Culture Urine [id number] Con tinued Results 02/20/2016 Urine Culture Ucult Comp lete Growth of aerobe sent to ref lab 02/18/2016 Urinalysis Ord28 U-Color Yellow 02/14/2016 Urinalysis Ord28 U-Kacie ty Clear 02/14/2016 Urinalysis Ord28 U-Gluc Negative 02/14/2016 Urinalysis Ord28 U-Bili Negative 02/14/2016 Urinalysis Ord28 U-Ketone Negative 02/14/2016 Urinalysis Ord28 U-SG 1.015 02/14/2016 Urinalysis Ord28 U-Blood Negative 02/14/2016 Urinalysis Ord28 U-pH 7.5 02/14/2016 Urinalysis Ord28 U-Prote in Negative 02/14/2016 Urinalysis Ord28 U-Urobi estella 0.2 E.U./dL E.U./dL Urinalysis Ord28 U-Nitri carol Negative 02/14/2016 Urinalysis Ord28 U-Leuk Small 02/14/2016 Urinalysis Ord28 U-Bact TRACE 02/14/2016 Urinalysis Ord28 U-Squam ous Epi 5-10 per/HPF 6 Urinalysis Ord28 U-Cryst al None per/HPF 6 Urinalysis Ord28 U-Mucus None 02/14/2016 Urinalysis Ord28 U-Renal tubular epi None 02/14/2016 Urinalysis Ord28 U-RBC None per/HPF 02/14/2016 Urinalysis Ord28 U-Trans itional epi None per/HPF 6 Urinalysis Ord28 U-WBC 3-5 per/HPF 02/14/2016 Urinalysis Ord28 U-Cast None per/HPF 02/14/2016 Urinalysis Ord28 U-VOL VOLUME SUFFICIENT (10mL) 02/14/2016 Urinalysis Ord28 U-Com Urine saved if culture needed (specimen acceptable for 48 hours from collection if refrigerated) 02/14/2016 Urinalysis Ord28 U-Yeast NEGATIVE 02/14/2016 Cbc With Differential Ord2 WBC 8.78 K/ul 02/14/2016 Cbc With Differential Ord2 RBC 4.62 M/ul 02/14/2016 Cbc With Differential Ord2 HGB 13.5 g/dl 02/14/2016 Cbc With Differential Ord2 HCT 42.4 % 02/14/2016 Cbc With Differential Ord2 Neut% 56.3 % 02/14/2016 Cbc With Differential Ord2 MCV 91.8 fl 02/14/2016 Cbc With Differential Ord2 Lymph% 29.0 % 02/14/2016 Cbc With Differential Ord2 MCH 29.2 pg 02/14/2016 Cbc With Differential Ord2 Roberts% 9.3 % 02/14/2016 Cbc With Differential Ord2 MCHC 31.8 pg 02/14/2016 Cbc With Differential Ord2 Eos% 4.8 % 02/14/2016 Cbc With Differential Ord2 PLT 355 K/ul 02/14/2016 Cbc With Differential Ord2 Baso% 0.6 % 02/14/2016 Cbc With Differential Ord2 RDW 16.2 % 02/14/2016 Cbc With Differential Ord2 Neut ABS# 4.94 K/ul 02/14/2016 Cbc With Differential Ord2 Lymph ABS# 2.55 K/ul 02/14/2016 Cbc With Differential Ord2 Roberts ABS# 0.8 K/ul 02/14/2016 Cbc With Differential Ord2 Eos ABS# 0.4 K/ul 02/14/2016 Cbc With Differential Ord2 Baso ABS# 0.1 K/ul 02/14/2016 Tsh Ord6 hTSH II 0.80 uIU/mL 02/14/2016 Pt Eee2095 PT 27.1 seconds 02/14/2016 Pt Xdz7459 INR 2.7 02/14/2016 Pt Anf7337 Low Intensity - 1.5-2.0 02/14/2016 Pt Lgw5037 Mod intensity - 2.0-3.0 02/14/2016 Pt Uqw6301 Hi intensity - 3.0-4.0 02/14/2016 Free T4 Yyr389 FREE T4 1.87 ng/dL 02/14/2016 Comp Metabolic Rqb542 NA 139 mEq/L 02/14/2016 Comp Metabolic Dkz668 K 3.8 mEq/L 02/14/2016 Comp Metabolic Rwm988 CL 103 mEq/L 02/14/2016 Comp Metabolic Iqe567 CO2 27.0 mEq/L 02/14/2016 Comp Metabolic Cyd967 AN ION GAP 13 02/14/2016 Comp Metabolic Dkd164 GL UCOSE 91 mg/dL 02/14/2016 Comp Metabolic Sxw076 Cr eat 1.0 mg/dL 02/14/2016 Comp Metabolic Gui175 eG FR 58 ml/min/1.73m2 02/13 Comp Metabolic Ftc907 BUN 16 mg/dL 02/14/2016 Comp Metabolic Afm337 B/ C Ratio 16.2 Ratio 02/14/2016 Comp Metabolic Mea084 CA LCIUM 9.0 mg/dL 02/14/2016 Comp Metabolic Tjg143 AL K PHOS 88 U/L 02/14/2016 Comp Metabolic Mdq326 T(SGOT) 17 U/L 02/14/2016 Comp Metabolic Jdh952 AL T(SGPT) 12 U/L 02/14/2016 Comp Metabolic Krc587 BI LI T 0.6 mg/dL 02/14/2016 Comp Metabolic Rqv241 AL BUMIN 3.2 g/dL 02/14/2016 Comp Metabolic Eis635 TP RO 5.8 g/dL 02/14/2016 Comp Metabolic Khq120 GL OB 2.6 g/dL 02/14/2016 Comp Metabolic Mxq741 A/ G Ratio 1.3 Ratio 02/14/2016 Comp Metabolic Kxa595 Os mo 278 mOsmo 02/14/2016 Pt Wvz1328 PT 34.6 seconds 02/06/2016 Pt Txa6182 INR 3.7 02/06/2016 Pt Ztn5603 Low Intensity - 1.5-2.0 02/06/2016 Pt Seo6337 Mod intensity - 2.0-3.0 02/06/2016 Pt Poo3738 Hi intensity - 3.0-4.0 02/06/2016 Pt Qib3804 PT 33.3 seconds 01/23/2016 Pt Zaw4493 INR 3.5 01/23/2016 Pt Gpu4884 Low Intensity - 1.5-2.0 01/23/2016 Pt Nxn9924 Mod intensity - 2.0-3.0 01/23/2016 Pt Etf7125 Hi intensity - 3.0-4.0 01/23/2016 Pt Nwv7236 PT 30.5 seconds 12/31/2015 Pt Agf9421 INR 3.2 12/31/2015 Pt Otv6698 Low Intensity - 1.5-2.0 12/31/2015 Pt Zdk3733 Mod intensity - 2.0-3.0 12/31/2015 Pt Aqb9140 Hi intensity - 3.0-4.0 12/31/2015 Pt Ggv4194 PT 35.6 seconds 12/25/2015 Pt Qfi7964 INR 3.9 12/25/2015 Pt Vic4568 Low Intensity - 1.5-2.0 12/25/2015 Pt Pwh4421 Mod intensity - 2.0-3.0 12/25/2015 Pt Xkg1500 Hi intensity - 3.0-4.0 12/25/2015 Pt Qbm0393 PT 30.8 seconds 11/21/2015 Pt Fcl7986 INR 3.2 11/21/2015 Pt Fdz8517 Low Intensity - 1.5-2.0 11/21/2015 Pt Jqc9220 Mod intensity - 2.0-3.0 11/21/2015 Pt Wvh5959 Hi intensity - 3.0-4.0 11/21/2015 Uric Acid Ord77 Uric A 5.9 mg/dL 11/21/2015 Cbc With Differential Ord2 WBC 10.76 K/ul 11/20/2015 Cbc With Differential Ord2 RBC 4.04 M/ul 11/20/2015 Cbc With Differential Ord2 HGB 12.1 g/dl 11/20/2015 Cbc With Differential Ord2 HCT 38.5 % 11/20/2015 Cbc With Differential Ord2 Neut% 65.5 % 11/20/2015 Cbc With Differential Ord2 MCV 95.3 fl 11/20/2015 Cbc With Differential Ord2 Lymph% 23.3 % 11/20/2015 Cbc With Differential Ord2 MCH 30.0 pg 11/20/2015 Cbc With Differential Ord2 Roberts% 8.1 % 11/20/2015 Cbc With Differential Ord2 MCHC 31.4 pg 11/20/2015 Cbc With Differential Ord2 Eos% 2.7 % 11/20/2015 Cbc With Differential Ord2 PLT 413 K/ul 11/20/2015 Cbc With Differential Ord2 Baso% 0.4 % 11/20/2015 Cbc With Differential Ord2 RDW 17.4 % 11/20/2015 Cbc With Differential Ord2 Neut ABS# 7.05 K/ul 11/20/2015 Cbc With Differential Ord2 Lymph ABS# 2.51 K/ul 11/20/2015 Cbc With Differential Ord2 Roberts ABS# 0.9 K/ul 11/20/2015 Cbc With Differential Ord2 Eos ABS# 0.3 K/ul 11/20/2015 Cbc With Differential Ord2 Baso ABS# 0.0 K/ul 11/20/2015 Comp Metabolic Gxl262 NA 137 mEq/L 10/22/2015 Comp Metabolic Zwk965 K 3.9 mEq/L 10/22/2015 Comp Metabolic Rxm958 CL 100 mEq/L 10/22/2015 Comp Metabolic Egg510 CO2 31.0 mEq/L 10/22/2015 Comp Metabolic Pzc609 AN ION GAP 10 10/22/2015 Comp Metabolic Xeh095 GL UCOSE 94 mg/dL 10/22/2015 Comp Metabolic Xso487 Cr eat 1.0 mg/dL 10/22/2015 Comp Metabolic Zur526 eG FR 55 ml/min/1.73m2 10/21 Comp Metabolic Mmw370 BUN 19 mg/dL 10/22/2015 Comp Metabolic Hwa144 B/ C Ratio 18.3 Ratio 10/22/2015 Comp Metabolic Tbf313 CA LCIUM 8.8 mg/dL 10/22/2015 Comp Metabolic Qor193 AL K PHOS 83 U/L 10/22/2015 Comp Metabolic Nyy268 T(SGOT) 15 U/L 10/22/2015 Comp Metabolic Fak783 AL T(SGPT) 13 U/L 10/22/2015 Comp Metabolic Qys682 BI LI T 0.9 mg/dL 10/22/2015 Comp Metabolic Den657 AL BUMIN 2.8 g/dL 10/22/2015 Comp Metabolic Uvd043 TP RO 5.4 g/dL 10/22/2015 Comp Metabolic Znu855 GL OB 2.6 g/dL 10/22/2015 Comp Metabolic Hwm720 A/ G Ratio 1.1 Ratio 10/22/2015 Comp Metabolic Amp852 Os mo 276 mOsmo 10/22/2015 Bili D Ord93 BILI D 0.1 mg/dL 10/22/2015 Bili D Ord93 BILI I 0.8 mg/dL 10/22/2015 Pt Sua4817 PT 22.8 seconds 10/22/2015 Pt Myb5840 INR 2.1 10/22/2015 Pt Lqb4119 Low Intensity - 1.5-2.0 10/22/2015 Pt Iin5447 Mod intensity - 2.0-3.0 10/22/2015 Pt Lgj5115 Hi intensity - 3.0-4.0 10/22/2015 Pt Hwa0208 PT 28.0 seconds 09/16/2015 Pt [id number] INR 2.7 09/16/2015 Pt Kwj3826 Low Intensity - 1.5-2.0 09/16/2015 Pt Lzt7633 Mod intensity - 2.0-3.0 09/16/2015 Pt Zsg8352 Hi intensity - 3.0-4.0 09/16/2015 Tsh Ord6 hTSH II 1.40 uIU/mL 09/16/2015 Free T4 [id number] FREE T4 1.73 ng/dL 09/16/2015 Lipid Ord30 CHOL 169 mg/dL 09/16/2015 Lipid Ord30 HDL 66.0 mg/dl 09/16/2015 Lipid Ord30 TRIG 78 mg/dL 09/16/2015 Lipid Ord30 LDL 87 mg/dL 09/16/2015 Lipid Ord30 C/HDL 2.6 Ratio 09/16/2015 Pt Vhg4848 PT 26.6 seconds 08/21/2015 Pt Uwk5981 INR 2.6 08/21/2015 Pt Hvc4430 Low Intensity - 1.5-2.0 08/21/2015 Pt Sch0274 Mod intensity - 2.0-3.0 08/21/2015 Pt Mfi1328 Hi intensity - 3.0-4.0 08/21/2015 Comp Metabolic Uco781 NA 141 mEq/L 08/08/2015 Comp Metabolic Eru442 K 3.3 mEq/L 08/08/2015 Comp Metabolic Mfs731 CL 102 mEq/L 08/08/2015 Comp Metabolic Cfj021 CO2 31.0 mEq/L 08/08/2015 Comp Metabolic Ziv977 AN ION GAP 11 08/08/2015 Comp Metabolic Azm627 GL UCOSE 83 mg/dL 08/08/2015 Comp Metabolic Eyi620 Cr eat 1.0 mg/dL 08/08/2015 Comp Metabolic Mvc146 eG FR 55 ml/min/1.73m2 08/08 Comp Metabolic Iae620 BUN 19 mg/dL 08/08/2015 Comp Metabolic Lpc990 B/ C Ratio 18.3 Ratio 08/08/2015 Comp Metabolic Xtv229 CA LCIUM 8.9 mg/dL 08/08/2015 Comp Metabolic Gaq443 AL K PHOS 84 U/L 08/08/2015 Comp Metabolic Mrz767 T(SGOT) 20 U/L 08/08/2015 Comp Metabolic Kvs936 AL T(SGPT) 18 U/L 08/08/2015 Comp Metabolic Xeh648 BI LI T 0.6 mg/dL 08/08/2015 Comp Metabolic Mvp875 AL BUMIN 3.3 g/dL 08/08/2015 Comp Metabolic Gxf560 TP RO 5.9 g/dL 08/08/2015 Comp Metabolic Hjo031 GL OB 2.6 g/dL 08/08/2015 Comp Metabolic Htb791 A/ G Ratio 1.3 Ratio 08/08/2015 Comp Metabolic Gru478 Os mo 283 mOsmo 08/08/2015 Cbc With Differential Ord2 WBC 10.67 K/ul 08/08/2015 Cbc With Differential Ord2 RBC 4.77 M/ul 08/08/2015 Cbc With Differential Ord2 HGB 14.3 g/dl 08/08/2015 Cbc With Differential Ord2 HCT 43.7 % 08/08/2015 Cbc With Differential Ord2 Neut% 60.4 % 08/08/2015 Cbc With Differential Ord2 MCV 91.6 fl 08/08/2015 Cbc With Differential Ord2 Lymph% 27.2 % 08/08/2015 Cbc With Differential Ord2 MCH 30.0 pg 08/08/2015 Cbc With Differential Ord2 Roberts% 8.2 % 08/08/2015 Cbc With Differential Ord2 MCHC 32.7 pg 08/08/2015 Cbc With Differential Ord2 Eos% 3.8 % 08/08/2015 Cbc With Differential Ord2 PLT 296 K/ul 08/08/2015 Cbc With Differential Ord2 Baso% 0.4 % 08/08/2015 Cbc With Differential Ord2 RDW 16.0 % 08/08/2015 Cbc With Differential Ord2 Neut ABS# 6.44 K/ul 08/08/2015 Cbc With Differential Ord2 Lymph ABS# 2.90 K/ul 08/08/2015 Cbc With Differential Ord2 Roberts ABS# 0.9 K/ul 08/08/2015 Cbc With Differential Ord2 Eos ABS# 0.4 K/ul 08/08/2015 Cbc With Differential Ord2 Baso ABS# 0.0 K/ul 08/08/2015 Cbc With Differential Ord2 New Analyzer Notice Please note new ref ranges s tarting 07-10-2015 due to implemntation of new five part differential hematolgy analyzer. 08/08/2015 Bili D Ord93 BILI D 0.1 mg/dL 08/08/2015 Bili D Ord93 BILI I 0.5 mg/dL 08/08/2015 Pt Tcf0585 PT 31.8 seconds 08/05/2015 Pt Gix2915 INR 3.2 08/05/2015 Pt Vnd7862 Low Intensity - 1.5-2.0 08/05/2015 Pt Ccd4933 Mod intensity - 2.0-3.0 08/05/2015 Pt Ntf7273 Hi intensity - 3.0-4.0 08/05/2015 Pt Pli1071 PT 27.4 seconds 06/27/2015 Pt Aby1113 INR 2.6 06/27/2015 Pt Abd3820 Low Intensity - 1.5-2.0 06/27/2015 Pt Bss3472 Mod intensity - 2.0-3.0 06/27/2015 Pt Jof3287 Hi intensity - 3.0-4.0 06/27/2015 Tsh Ord6 hTSH II 0.31 uIU/mL 05/31/2015 Cbc With Differential Ord2 WBC 10.3 K/uL 05/31/2015 Cbc With Differential Ord2 LYM 3.2 K/uL 05/31/2015 Cbc With Differential Ord2 LYM% 30.9 % 05/31/2015 Cbc With Differential Ord2 NEUT/GRAN 5.6 K/uL 05/31/2015 Cbc With Differential Ord2 NEUT/GRAN % 54.8 % 05/31/2015 Cbc With Differential Ord2 MID 1.5 K/uL 05/31/2015 Cbc With Differential Ord2 MID% 14.3 % 05/31/2015 Cbc With Differential Ord2 RBC 4.70 M/uL 05/31/2015 Cbc With Differential Ord2 HGB 14.0 g/dL 05/31/2015 Cbc With Differential Ord2 HCT 45.0 % 05/31/2015 Cbc With Differential Ord2 MCV 96 fL 05/31/2015 Cbc With Differential Ord2 MCH 30 pg 05/31/2015 Cbc With Differential Ord2 MCHC 31 g/dL 05/31/2015 Cbc With Differential Ord2 PLT 279 K/uL 05/31/2015 Cbc With Differential Ord2 RDW 15.1 % 05/31/2015 Free T4 Udl884 FREE T4 1.89 ng/dL 05/31/2015 Comp Metabolic Zto529 NA 140 mEq/L 05/31/2015 Comp Metabolic Vbz025 K 3.3 mEq/L 05/31/2015 Comp Metabolic Sjc314 CL 99 mEq/L 05/31/2015 Comp Metabolic Tew568 CO2 30.0 mEq/L 05/31/2015 Comp Metabolic Ytd525 AN ION GAP 14 05/31/2015 Comp Metabolic Pac687 GL UCOSE 70 mg/dL 05/31/2015 Comp Metabolic Rrz955 Cr eat 1.0 mg/dL 05/31/2015 Comp Metabolic Eft743 eG FR 55 ml/min/1.73m2 05/31 Comp Metabolic Hvh781 BUN 23 mg/dL 05/31/2015 Comp Metabolic Ebt328 B/ C Ratio 22.1 Ratio 05/31/2015 Comp Metabolic Jzr181 CA LCIUM 8.9 mg/dL 05/31/2015 Comp Metabolic Oyt005 AL K PHOS 86 U/L 05/31/2015 Comp Metabolic Kgq471 T(SGOT) 28 U/L 05/31/2015 Comp Metabolic Stx886 AL T(SGPT) 30 U/L 05/31/2015 Comp Metabolic Lea412 BI LI T 0.4 mg/dL 05/31/2015 Comp Metabolic Fda804 AL BUMIN 3.3 g/dL 05/31/2015 Comp Metabolic Mbt921 TP RO 6.0 g/dL 05/31/2015 Comp Metabolic Ggw903 GL OB 2.7 g/dL 05/31/2015 Comp Metabolic Rlq538 A/ G Ratio 1.2 Ratio 05/31/2015 Comp Metabolic Qku709 Os mo 282 mOsmo 05/31/2015 Pt Sbs4385 PT 23.3 seconds 04/15/2015 Pt Mjq6767 INR 2.2 04/15/2015 Pt Vcy0116 Low Intensity - 1.5-2.0 04/15/2015 Pt Egt1387 Mod intensity - 2.0-3.0 04/15/2015 Pt Srb4890 Hi intensity - 3.0-4.0 04/15/2015 Pt Ltg7149 PT 19.5 seconds 04/04/2015 Pt Hpl0132 INR 1.7 04/04/2015 Pt Nvo1027 Low Intensity - 1.5-2.0 04/04/2015 Pt Rqv2275 Mod intensity - 2.0-3.0 04/04/2015 Pt Yhn8273 Hi intensity - 3.0-4.0 04/04/2015 Pt Upj9617 PT 39.8 seconds 04/01/2015 Pt Dou5095 INR 4.3 04/01/2015 Pt Nvp5625 Low Intensity - 1.5-2.0 04/01/2015 Pt Hqh4688 Mod intensity - 2.0-3.0 04/01/2015 Pt Iqf1650 Hi intensity - 3.0-4.0 04/01/2015 Metabolic Ord15 NA 139 mEq/L 02/28/2015 Metabolic Ord15 K 3.4 mEq/L 02/28/2015 Metabolic Ord15 CL 104 mEq/L 02/28/2015 Metabolic Ord15 CO2 31.0 mEq/L 02/28/2015 Metabolic Ord15 GLUCOSE 124 mg/dL 02/28/2015 Metabolic Ord15 BUN 27 mg/dL 02/28/2015 Metabolic Ord15 Creat 1.1 mg/dL 02/28/2015 Metabolic Ord15 B/C Ratio 25.0 Ratio 02/28/2015 Metabolic Ord15 eGFR 52 ml/min/1.73m2 02/28/2015 Metabolic Ord15 Osmo 284 mOsmo 02/28/2015 Metabolic Ord15 ANION GAP 7 02/28/2015 Metabolic Ord15 CALCIUM 8.7 mg/dL 02/28/2015 Pt Wxq6179 PT 31.4 seconds 02/28/2015 Pt Ftc9466 INR 3.2 02/28/2015 Pt Nyi7524 Low Intensity - 1.5-2.0 02/28/2015 Pt Hjp3129 Mod intensity - 2.0-3.0 02/28/2015 Pt Ivz9732 Hi intensity - 3.0-4.0 02/28/2015 Pt Hlu7850 PT 23.2 seconds 01/18/2015 Pt Rhx4053 INR 2.1 01/18/2015 Pt Ffp3267 Low Intensity - 1.5-2.0 01/18/2015 Pt Ftf8881 Mod intensity - 2.0-3.0 01/18/2015 Pt Kym7665 Hi intensity - 3.0-4.0 01/18/2015 Pt Hxx3887 PT 18.2 seconds 01/10/2015 Pt Aau8557 INR 1.6 01/10/2015 Pt Sao5993 Low Intensity - 1.5-2.0 01/10/2015 Pt Yqi0699 Mod intensity - 2.0-3.0 01/10/2015 Pt Uoe3833 Hi intensity - 3.0-4.0 01/10/2015 Review of Systems System Result Effective Dates Constitutional No anorexia 03/07/2019 Constitutional No night sweats 03/07/2019 Constitutional No chills 03/07/2019 Constitutional No diaphoresis 03/07/2019 Constitutional No fever 03/07/2019 Constitutional No insomnia 03/07/2019 Constitutional No malaise 03/07/2019 Eyes No eye discharge Eyes No eye erythema 03/2019 Ears/Nose/Throat/Neck No dizziness 03/07/2019 Ears/Nose/Throat/Neck No headache 03/07/2019 Ears/Nose/Throat/Neck nasal allergies 03/07/2019 Cardiovascular No chest pain/pressure 03/07/2019 Cardiovascular edema 03/2019 Cardiovascular hypertension 03/07/2019 Respiratory No dyspnea 0 03/07/2019 Gastrointestinal No abdominal pain 03/07/2019 Gastrointestinal No constipation 03/07/2019 Gastrointestinal No diarrhea 03/07/2019 Genitourinary/Nephrology No dysuria 03/07/2019 Musculoskeletal stiffness 03/07/2019 Musculoskeletal No joint complaint 03/07/2019 Dermatologic No erythema 03/07/2019 Neurologic No alteration of consciousness 03/07/2019 Psychiatric No anxiety 0 03/07/2019 Psychiatric No depression 03/07/2019 Constitutional recent illness 01/31/2019 Constitutional No anorexia 01/31/2019 Constitutional No night sweats 01/31/2019 Constitutional No chills 01/31/2019 Constitutional No diaphoresis 01/31/2019 Constitutional fatigue 0 01/31/2019 Constitutional No fever 01/31/2019 Constitutional No insomnia 01/31/2019 Constitutional No malaise 01/31/2019 Eyes No eye discharge Eyes No eye erythema 11/2018 Ears/Nose/Throat/Neck No dizziness 01/31/2019 Ears/Nose/Throat/Neck No headache 01/31/2019 Ears/Nose/Throat/Neck nasal allergies 01/31/2019 Cardiovascular No chest pain/pressure 01/31/2019 Cardiovascular edema 11/2018 Cardiovascular fatigue 0 01/31/2019 Cardiovascular hypertension 01/31/2019 Respiratory No dyspnea 0 01/31/2019 Gastrointestinal No abdominal pain 01/31/2019 Gastrointestinal No constipation 01/31/2019 Gastrointestinal No diarrhea 01/31/2019 Genitourinary/Nephrology No dysuria 01/31/2019 Musculoskeletal stiffness 01/31/2019 Musculoskeletal No joint complaint 01/31/2019 Dermatologic No erythema 01/31/2019 Dermatologic sores 01/31 Neurologic No alteration of consciousness 01/31/2019 Psychiatric No anxiety 0 01/31/2019 Psychiatric No depression 01/31/2019 Constitutional No recent illness 01/10/2019 Constitutional No chills 01/10/2019 Constitutional No diaphoresis 01/10/2019 Constitutional No fever 01/10/2019 Eyes No eye erythema Ears/Nose/Throat/Neck No nasal discharge 01/10/2019 Cardiovascular No chest pain/pressure 01/10/2019 Respiratory No cough Gastrointestinal No abdominal pain 01/10/2019 Genitourinary/Nephrology dysuria 01/10/2019 Genitourinary/Nephrology No urinary urgenc y 01/10/2019 Genitourinary/Nephrology No urinary frequency 01/10/2019 Neurologic No alteration of consciousness 01/10/2019 Neurologic No mental status change 01/10/2019 Genitourinary/Nephrology No vaginal discharge 01/10/2019 Constitutional recent illness 12/05/2018 Constitutional No anorexia 12/05/2018 Constitutional No night sweats 12/05/2018 Constitutional No chills 12/05/2018 Constitutional No diaphoresis 12/05/2018 Constitutional No fatigue 12/05/2018 Constitutional No fever 12/05/2018 Constitutional No insomnia 12/05/2018 Constitutional No malaise 12/05/2018 Constitutional No weight loss 12/05/2018 Constitutional No weight gain 12/05/2018 Eyes No eye discharge Eyes No eye erythema 03/2019 Ears/Nose/Throat/Neck No headache 12/05/2018 Ears/Nose/Throat/Neck nasal allergies 12/05/2018 Ears/Nose/Throat/Neck nasal discharge 12/05/2018 Cardiovascular No chest pain/pressure 12/05/2018 Cardiovascular No dyspnea 12/05/2018 Cardiovascular edema 03/2019 Respiratory No cough 03/2019 Gastrointestinal No abdominal pain 12/05/2018 Gastrointestinal No constipation 12/05/2018 Gastrointestinal No diarrhea 12/05/2018 Genitourinary/Nephrology dysuria 12/05/2018 Genitourinary/Nephrology urinary urgency 12/05/2018 Musculoskeletal No joint complaint 12/05/2018 Dermatologic No rash 03/2019 Neurologic No alteration of consciousness 12/05/2018 Constitutional No recent illness 11/17/2018 Constitutional No night sweats 11/17/2018 Constitutional No chills 11/17/2018 Constitutional No diaphoresis 11/17/2018 Constitutional No fatigue 11/17/2018 Constitutional No fever 11/17/2018 Constitutional No insomnia 11/17/2018 Constitutional No malaise 11/17/2018 Constitutional No weight loss 11/17/2018 Constitutional No weight gain 11/17/2018 Constitutional No obesity 11/17/2018 Eyes No blindness 2018 Eyes No eye discharge Eyes No eye erythema Eyes No eye floaters Eyes No eye foreign body 11/17/2018 Eyes No eye pain 019 Eyes No eye tearing 10/27 Eyes No eye trauma 11/17 Eyes No eyelid edema Eyes No eyelid erythema 11/17/2018 Eyes No eyelid pain 10/27 Eyes No photophobia 10/27 Eyes No vision change Eyes No amblyopia 2018 Eyes No cataract 019 Eyes No glaucoma 019 Eyes No macular degeneration 11/17/2018 Ears/Nose/Throat/Neck No dry mouth 11/17/2018 Ears/Nose/Throat/Neck No dental pain 11/17/2018 Ears/Nose/Throat/Neck No dizziness 11/17/2018 Ears/Nose/Throat/Neck No dysphagia 11/17/2018 Ears/Nose/Throat/Neck No headache 11/17/2018 Ears/Nose/Throat/Neck No hearing loss 11/17/2018 Ears/Nose/Throat/Neck No nasal allergies 11/17/2018 Ears/Nose/Throat/Neck No nasal discharge 11/17/2018 Ears/Nose/Throat/Neck No postnasal drip 11/17/2018 Ears/Nose/Throat/Neck No sinus congestion 11/17/2018 Ears/Nose/Throat/Neck No sore throat 11/17/2018 Cardiovascular arrhythmia 11/17/2018 Cardiovascular No chest pain/pressure 11/17/2018 Cardiovascular No dyspnea 11/17/2018 Cardiovascular No edema 11/17/2018 Cardiovascular No exercise intolerance 11/17/2018 Cardiovascular No fatigue 11/17/2018 Cardiovascular No near-syncope/dizziness 11/17/2018 Cardiovascular No orthopnea 11/17/2018 Cardiovascular No palpitations 11/17/2018 Respiratory No electronic cigarettes/Vapor 11/17/2018 Respiratory No asthma Respiratory No pleuritic pain 11/17/2018 Respiratory No productive sputum 11/17/2018 Respiratory No chest tightness 11/17/2018 Respiratory No cigarette smoking 11/17/2018 Respiratory No cough Respiratory No dyspnea 0 11/17/2018 Respiratory No pedal edema 11/17/2018 Respiratory No snoring 0 11/17/2018 Respiratory No wheezing 11/17/2018 Gastrointestinal No hemorrhoids 11/17/2018 Gastrointestinal No abdominal pain 11/17/2018 Gastrointestinal No constipation 11/17/2018 Gastrointestinal No diarrhea 11/17/2018 Gastrointestinal No gastroesophageal reflu x 11/17/2018 Gastrointestinal No melena 11/17/2018 Gastrointestinal No nausea 11/17/2018 Gastrointestinal No vomiting 11/17/2018 Genitourinary/Nephrology No dysuria 11/17/2018 Genitourinary/Nephrology No nocturia 11/17/2018 Genitourinary/Nephrology No urinary incontinence 11/17/2018 Musculoskeletal No stiffness 11/17/2018 Musculoskeletal No swelling 11/17/2018 Musculoskeletal No muscle weakness 11/17/2018 Musculoskeletal No myalgias 11/17/2018 Constitutional No anorexia 11/17/2018 Neurologic No alteration of consciousness 11/17/2018 Dermatologic ecchymosis 11/17/2018 Constitutional recent illness 10/27/2018 Constitutional No anorexia 10/27/2018 Constitutional No night sweats 10/27/2018 Constitutional No diaphoresis 10/27/2018 Constitutional No fatigue 10/27/2018 Constitutional No fever 10/27/2018 Constitutional No insomnia 10/27/2018 Constitutional No malaise 10/27/2018 Constitutional No weight loss 10/27/2018 Constitutional No weight gain 10/27/2018 Constitutional No chills 10/27/2018 Eyes No eye erythema 07/2018 Eyes No eye discharge Ears/Nose/Throat/Neck No headache 10/27/2018 Ears/Nose/Throat/Neck nasal allergies 10/27/2018 Ears/Nose/Throat/Neck nasal discharge 10/27/2018 Cardiovascular No chest pain/pressure 10/27/2018 Cardiovascular No dyspnea 10/27/2018 Cardiovascular edema 07/2018 Respiratory No cough 07/2018 Gastrointestinal No abdominal pain 10/27/2018 Gastrointestinal No diarrhea 10/27/2018 Gastrointestinal No constipation 10/27/2018 Genitourinary/Nephrology dysuria 10/27/2018 Dermatologic No rash 07/2018 Genitourinary/Nephrology urinary urgency 10/27/2018 Musculoskeletal No joint complaint 10/27/2018 Neurologic No alteration of consciousness 10/27/2018 Constitutional recent illness 09/27/2018 Constitutional No anorexia 09/27/2018 Constitutional No night sweats 09/27/2018 Constitutional No chills 09/27/2018 Constitutional No diaphoresis 09/27/2018 Constitutional fatigue 0 09/27/2018 Constitutional No fever 09/27/2018 Constitutional No insomnia 09/27/2018 Constitutional No malaise 09/27/2018 Eyes No eye discharge Eyes No eye erythema 07/2018 Ears/Nose/Throat/Neck No dizziness 09/27/2018 Ears/Nose/Throat/Neck No headache 09/27/2018 Cardiovascular No chest pain/pressure 09/27/2018 Cardiovascular edema 07/2018 Cardiovascular fatigue 0 09/27/2018 Cardiovascular hypertension 09/27/2018 Respiratory No dyspnea 0 09/27/2018 Gastrointestinal No abdominal pain 09/27/2018 Gastrointestinal No constipation 09/27/2018 Gastrointestinal No diarrhea 09/27/2018 Genitourinary/Nephrology No dysuria 09/27/2018 Dermatologic No erythema 09/27/2018 Dermatologic sores 09/27 Neurologic No alteration of consciousness 09/27/2018 Psychiatric No anxiety 0 09/27/2018 Psychiatric No depression 09/27/2018 Musculoskeletal stiffness 09/27/2018 Musculoskeletal No joint complaint 09/27/2018 Ears/Nose/Throat/Neck nasal allergies 09/27/2018 Constitutional recent illness 08/16/2018 Constitutional No anorexia 08/16/2018 Constitutional No night sweats 08/16/2018 Constitutional No chills 08/16/2018 Constitutional No diaphoresis 08/16/2018 Constitutional fatigue 0 08/16/2018 Constitutional No fever 08/16/2018 Constitutional No insomnia 08/16/2018 Constitutional No malaise 08/16/2018 Eyes No eye discharge Eyes No eye erythema Ears/Nose/Throat/Neck No dizziness 08/16/2018 Ears/Nose/Throat/Neck No headache 08/16/2018 Cardiovascular No chest pain/pressure 08/16/2018 Cardiovascular edema Cardiovascular fatigue 0 08/16/2018 Cardiovascular hypertension 08/16/2018 Respiratory No dyspnea 0 08/16/2018 Gastrointestinal No abdominal pain 08/16/2018 Gastrointestinal No constipation 08/16/2018 Gastrointestinal No diarrhea 08/16/2018 Genitourinary/Nephrology No dysuria 08/16/2018 Dermatologic No erythema 08/16/2018 Neurologic No alteration of consciousness 08/16/2018 Psychiatric No anxiety 0 08/16/2018 Psychiatric No depression 08/16/2018 Dermatologic sores 08/16 Constitutional recent illness 07/11/2018 Constitutional No anorexia 07/11/2018 Constitutional No night sweats 07/11/2018 Constitutional No chills 07/11/2018 Constitutional No diaphoresis 07/11/2018 Constitutional fatigue 0 07/11/2018 Constitutional No fever 07/11/2018 Constitutional No insomnia 07/11/2018 Constitutional No malaise 07/11/2018 Eyes No eye discharge Eyes No eye erythema Ears/Nose/Throat/Neck No dizziness 07/11/2018 Ears/Nose/Throat/Neck No headache 07/11/2018 Cardiovascular No chest pain/pressure 07/11/2018 Respiratory No dyspnea 0 07/11/2018 Gastrointestinal No abdominal pain 07/11/2018 Gastrointestinal No constipation 07/11/2018 Gastrointestinal No diarrhea 07/11/2018 Genitourinary/Nephrology No dysuria 07/11/2018 Dermatologic No erythema 07/11/2018 Neurologic No alteration of consciousness 07/11/2018 Psychiatric No anxiety 0 07/11/2018 Psychiatric No depression 07/11/2018 Cardiovascular hypertension 07/11/2018 Cardiovascular fatigue 0 07/11/2018 Cardiovascular edema Constitutional No recent illness 03/24/2018 Constitutional No anorexia 03/24/2018 Constitutional No night sweats 03/24/2018 Constitutional No chills 03/24/2018 Constitutional No diaphoresis 03/24/2018 Constitutional fatigue 0 03/24/2018 Constitutional No fever 03/24/2018 Constitutional No insomnia 03/24/2018 Constitutional No malaise 03/24/2018 Eyes No eye discharge Eyes No eye erythema Ears/Nose/Throat/Neck No dizziness 03/24/2018 Ears/Nose/Throat/Neck No headache 03/24/2018 Cardiovascular No chest pain/pressure 03/24/2018 Respiratory No dyspnea 0 03/24/2018 Gastrointestinal No abdominal pain 03/24/2018 Gastrointestinal No constipation 03/24/2018 Gastrointestinal No diarrhea 03/24/2018 Genitourinary/Nephrology No dysuria 03/24/2018 Dermatologic No erythema 03/24/2018 Neurologic No alteration of consciousness 03/24/2018 Psychiatric No anxiety 0 03/24/2018 Psychiatric No depression 03/24/2018 Constitutional No recent illness 11/18/2017 Constitutional No anorexia 11/18/2017 Constitutional No night sweats 11/18/2017 Constitutional No chills 11/18/2017 Constitutional No diaphoresis 11/18/2017 Constitutional fatigue 0 11/18/2017 Constitutional No fever 11/18/2017 Constitutional No insomnia 11/18/2017 Constitutional No malaise 11/18/2017 Eyes No eye discharge Eyes No eye erythema Ears/Nose/Throat/Neck No dizziness 11/18/2017 Ears/Nose/Throat/Neck No headache 11/18/2017 Cardiovascular No chest pain/pressure 11/18/2017 Respiratory No dyspnea 0 11/18/2017 Gastrointestinal No abdominal pain 11/18/2017 Gastrointestinal No constipation 11/18/2017 Gastrointestinal No diarrhea 11/18/2017 Genitourinary/Nephrology No dysuria 11/18/2017 Dermatologic No erythema 11/18/2017 Neurologic No alteration of consciousness 11/18/2017 Psychiatric No anxiety 0 11/18/2017 Psychiatric No depression 11/18/2017 Constitutional No recent illness 09/30/2017 Constitutional No chills 09/30/2017 Constitutional No diaphoresis 09/30/2017 Constitutional No fever 09/30/2017 Eyes No eye erythema 10/2017 Ears/Nose/Throat/Neck nasal discharge 09/30/2017 Ears/Nose/Throat/Neck nasal allergies 09/30/2017 Ears/Nose/Throat/Neck postnasal drip 09/30/2017 Ears/Nose/Throat/Neck No sore throat 09/30/2017 Cardiovascular No chest pain/pressure 09/30/2017 Cardiovascular No dyspnea 09/30/2017 Cardiovascular edema 10/2017 Cardiovascular fatigue 0 09/30/2017 Cardiovascular No palpitations 09/30/2017 Respiratory No cough 10/2017 Respiratory No chest congestion 09/30/2017 Gastrointestinal No abdominal pain 09/30/2017 Dermatologic erythema Neurologic No alteration of consciousness 09/30/2017 Neurologic No mental status change 09/30/2017 Constitutional No recent illness 08/17/2017 Constitutional No anorexia 08/17/2017 Constitutional No night sweats 08/17/2017 Constitutional No chills 08/17/2017 Constitutional No diaphoresis 08/17/2017 Constitutional fatigue 0 08/17/2017 Constitutional No fever 08/17/2017 Constitutional No insomnia 08/17/2017 Constitutional No malaise 08/17/2017 Eyes No eye discharge Eyes No eye erythema Ears/Nose/Throat/Neck No dizziness 08/17/2017 Ears/Nose/Throat/Neck No headache 08/17/2017 Cardiovascular No chest pain/pressure 08/17/2017 Respiratory dyspnea on exertion 08/17/2017 Respiratory No dyspnea 0 08/17/2017 Gastrointestinal No abdominal pain 08/17/2017 Gastrointestinal No constipation 08/17/2017 Gastrointestinal No diarrhea 08/17/2017 Genitourinary/Nephrology No dysuria 08/17/2017 Dermatologic No erythema 08/17/2017 Dermatologic pigmentation change 08/17/2017 Dermatologic No sores Neurologic No alteration of consciousness 08/17/2017 Neurologic dizziness Psychiatric No anxiety 0 08/17/2017 Psychiatric No depression 08/17/2017 Constitutional recent illness 06/15/2017 Constitutional No chills 06/15/2017 Constitutional No diaphoresis 06/15/2017 Constitutional fatigue 1 08/16/2016 Constitutional No fever 06/15/2017 Constitutional No insomnia 06/15/2017 Constitutional malaise 1 08/16/2016 Eyes No eye discharge Eyes No eye erythema Ears/Nose/Throat/Neck No dizziness 06/15/2017 Ears/Nose/Throat/Neck headache 06/15/2017 Cardiovascular No chest pain/pressure 06/15/2017 Respiratory dyspnea on exertion 06/15/2017 Respiratory No dyspnea 1 08/16/2016 Gastrointestinal No abdominal pain 06/15/2017 Gastrointestinal No constipation 06/15/2017 Gastrointestinal No diarrhea 06/15/2017 Genitourinary/Nephrology No dysuria 06/15/2017 Dermatologic No erythema 06/15/2017 Dermatologic pigmentation change 06/15/2017 Dermatologic No sores Neurologic No alteration of consciousness 06/15/2017 Neurologic dizziness Psychiatric No anxiety 1 08/16/2016 Psychiatric No depression 06/15/2017 Constitutional No night sweats 06/15/2017 Ears/Nose/Throat/Neck hoarseness 06/15/2017 Ears/Nose/Throat/Neck nasal discharge 06/15/2017 Ears/Nose/Throat/Neck nasal allergies 06/15/2017 Musculoskeletal stiffness 06/15/2017 Ears/Nose/Throat/Neck sinus congestion 06/15/2017 Constitutional No recent illness 04/01/2017 Constitutional No chills 04/01/2017 Constitutional No diaphoresis 04/01/2017 Constitutional No fever 04/01/2017 Eyes No eye erythema 10/2016 Ears/Nose/Throat/Neck No nasal allergies 04/01/2017 Ears/Nose/Throat/Neck No nasal discharge 04/01/2017 Cardiovascular No chest pain/pressure 04/01/2017 Cardiovascular No dyspnea 04/01/2017 Respiratory No cough 10/2016 Respiratory No dyspnea 1 Dermatologic laceration 04/01/2017 Neurologic No alteration of consciousness 04/01/2017 Neurologic No mental status change 04/01/2017 Constitutional No recent illness 03/16/2017 Constitutional No anorexia 03/16/2017 Constitutional No night sweats 03/16/2017 Constitutional No chills 03/16/2017 Constitutional No diaphoresis 03/16/2017 Constitutional fatigue 0 03/16/2017 Constitutional No fever 03/16/2017 Constitutional No insomnia 03/16/2017 Constitutional No malaise 03/16/2017 Eyes No eye discharge Eyes No eye erythema Ears/Nose/Throat/Neck No dizziness 03/16/2017 Ears/Nose/Throat/Neck No headache 03/16/2017 Cardiovascular No chest pain/pressure 03/16/2017 Respiratory dyspnea on exertion 03/16/2017 Respiratory No dyspnea 0 03/16/2017 Gastrointestinal No abdominal pain 03/16/2017 Gastrointestinal No constipation 03/16/2017 Gastrointestinal No diarrhea 03/16/2017 Genitourinary/Nephrology No dysuria 03/16/2017 Dermatologic No erythema 03/16/2017 Dermatologic pigmentation change 03/16/2017 Dermatologic No sores Neurologic No alteration of consciousness 03/16/2017 Neurologic dizziness Psychiatric No anxiety 0 03/16/2017 Psychiatric No depression 03/16/2017 Constitutional No recent illness 02/09/2017 Constitutional No anorexia 02/09/2017 Constitutional No night sweats 02/09/2017 Constitutional No chills 02/09/2017 Constitutional No diaphoresis 02/09/2017 Constitutional fatigue 0 02/09/2017 Constitutional No fever 02/09/2017 Constitutional No insomnia 02/09/2017 Constitutional No malaise 02/09/2017 Eyes No eye discharge Eyes No eye erythema Ears/Nose/Throat/Neck No dizziness 02/09/2017 Ears/Nose/Throat/Neck No headache 02/09/2017 Cardiovascular No chest pain/pressure 02/09/2017 Respiratory dyspnea on exertion 02/09/2017 Respiratory No dyspnea 0 02/09/2017 Gastrointestinal No abdominal pain 02/09/2017 Gastrointestinal No constipation 02/09/2017 Gastrointestinal No diarrhea 02/09/2017 Genitourinary/Nephrology No dysuria 02/09/2017 Dermatologic No erythema 02/09/2017 Dermatologic No sores Neurologic No alteration of consciousness 02/09/2017 Dermatologic pigmentation change 02/09/2017 Psychiatric No anxiety 0 02/09/2017 Psychiatric No depression 02/09/2017 Neurologic dizziness Constitutional No recent illness 10/13/2016 Constitutional No anorexia 10/13/2016 Constitutional No night sweats 10/13/2016 Constitutional No chills 10/13/2016 Constitutional No diaphoresis 10/13/2016 Constitutional fatigue 0 10/13/2016 Constitutional No fever 10/13/2016 Constitutional No insomnia 10/13/2016 Constitutional No malaise 10/13/2016 Eyes No eye discharge Eyes No eye erythema Ears/Nose/Throat/Neck No dizziness 10/13/2016 Ears/Nose/Throat/Neck No headache 10/13/2016 Cardiovascular No chest pain/pressure 10/13/2016 Respiratory dyspnea on exertion 10/13/2016 Respiratory No dyspnea 0 10/13/2016 Gastrointestinal No abdominal pain 10/13/2016 Gastrointestinal No constipation 10/13/2016 Gastrointestinal No diarrhea 10/13/2016 Genitourinary/Nephrology No dysuria 10/13/2016 Musculoskeletal joint complaint 10/13/2016 Dermatologic No erythema 10/13/2016 Dermatologic rash 2016 Dermatologic No sores Neurologic No alteration of consciousness 10/13/2016 Constitutional recent illness 07/31/2016 Constitutional No chills 07/31/2016 Constitutional No diaphoresis 07/31/2016 Constitutional No fever 07/31/2016 Eyes No eye erythema 08/2016 Ears/Nose/Throat/Neck nasal allergies 07/31/2016 Ears/Nose/Throat/Neck nasal discharge 07/31/2016 Ears/Nose/Throat/Neck postnasal drip 07/31/2016 Ears/Nose/Throat/Neck sinus congestion 07/31/2016 Cardiovascular No chest pain/pressure 07/31/2016 Cardiovascular No dyspnea 07/31/2016 Respiratory No chest congestion 07/31/2016 Respiratory cough 2016 Respiratory No dyspnea 0 07/31/2016 Gastrointestinal No abdominal pain 07/31/2016 Gastrointestinal No constipation 07/31/2016 Gastrointestinal No diarrhea 07/31/2016 Gastrointestinal No nausea 07/31/2016 Gastrointestinal No vomiting 07/31/2016 Dermatologic No rash 08/2016 Neurologic No alteration of consciousness 07/31/2016 Neurologic No mental status change 07/31/2016 Constitutional No fatigue 07/22/2016 Constitutional recent illness 07/22/2016 Ears/Nose/Throat/Neck No facial pain 07/22/2016 Ears/Nose/Throat/Neck headache 07/22/2016 Ears/Nose/Throat/Neck nasal discharge 07/22/2016 Ears/Nose/Throat/Neck No sinusitis 07/22/2016 Ears/Nose/Throat/Neck No sore throat 07/22/2016 Cardiovascular No chest pain/pressure 07/22/2016 Cardiovascular No dyspnea 07/22/2016 Cardiovascular No edema 07/22/2016 Cardiovascular No fatigue 07/22/2016 Cardiovascular No syncope 07/22/2016 Respiratory No chest tightness 07/22/2016 Respiratory No cigarette smoking 07/22/2016 Respiratory No cough Respiratory No dyspnea 0 07/22/2016 Respiratory No wheezing 07/22/2016 Gastrointestinal No constipation 07/22/2016 Gastrointestinal No diarrhea 07/22/2016 Gastrointestinal No dyspepsia 07/22/2016 Gastrointestinal No nausea 07/22/2016 Musculoskeletal No muscle weakness 07/22/2016 Musculoskeletal No myalgias 07/22/2016 Dermatologic No rash Neurologic No ataxia Neurologic No dizziness 07/22/2016 Neurologic No pain, facial 07/22/2016 Psychiatric No anxiety 0 07/22/2016 Psychiatric No depression 07/22/2016 Constitutional No recent illness 05/01/2016 Constitutional No chills 05/01/2016 Constitutional No diaphoresis 05/01/2016 Constitutional fatigue 1 07/01/2015 Constitutional No fever 05/01/2016 Eyes No eye erythema 09/2015 Ears/Nose/Throat/Neck nasal allergies 05/01/2016 Ears/Nose/Throat/Neck nasal discharge 05/01/2016 Ears/Nose/Throat/Neck postnasal drip 05/01/2016 Ears/Nose/Throat/Neck No sinus congestion 05/01/2016 Cardiovascular No chest pain/pressure 05/01/2016 Cardiovascular No dyspnea 05/01/2016 Respiratory No cough 09/2015 Respiratory No dyspnea 1 07/01/2015 Gastrointestinal No vomiting 05/01/2016 Gastrointestinal No nausea 05/01/2016 Gastrointestinal No constipation 05/01/2016 Gastrointestinal No diarrhea 05/01/2016 Gastrointestinal No abdominal pain 05/01/2016 Dermatologic No rash 09/2015 Neurologic No alteration of consciousness 05/01/2016 Neurologic No mental status change 05/01/2016 Constitutional No recent illness 04/06/2016 Constitutional No chills 04/06/2016 Constitutional No diaphoresis 04/06/2016 Constitutional No fever 04/06/2016 Eyes No eye discharge Eyes No eye erythema 03/2016 Ears/Nose/Throat/Neck No nasal allergies 04/06/2016 Ears/Nose/Throat/Neck No nasal discharge 04/06/2016 Cardiovascular No chest pain/pressure 04/06/2016 Cardiovascular No dyspnea 04/06/2016 Respiratory No cough 03/2016 Respiratory No dyspnea 1 Dermatologic erythema Neurologic No alteration of consciousness 04/06/2016 Ears/Nose/Throat/Neck No postnasal drip 04/06/2016 Ears/Nose/Throat/Neck No sinus congestion 04/06/2016 Cardiovascular edema 03/2016 Neurologic No mental status change 04/06/2016 Constitutional No recent illness 03/03/2016 Constitutional No chills 03/03/2016 Constitutional No diaphoresis 03/03/2016 Constitutional No fever 03/03/2016 Constitutional No malaise 03/03/2016 Eyes No eye discharge Eyes No eye erythema 11/2015 Cardiovascular No chest pain/pressure 03/03/2016 Respiratory No dyspnea 0 03/03/2016 Gastrointestinal No abdominal pain 03/03/2016 Neurologic No alteration of consciousness 03/03/2016 Ears/Nose/Throat/Neck No nasal discharge 03/03/2016 Ears/Nose/Throat/Neck No nasal allergies 03/03/2016 Cardiovascular No dyspnea 03/03/2016 Respiratory No cough 11/2015 Dermatologic erythema Constitutional No recent illness 02/07/2016 Constitutional No anorexia 02/07/2016 Constitutional No night sweats 02/07/2016 Constitutional No chills 02/07/2016 Constitutional No diaphoresis 02/07/2016 Constitutional fatigue 0 02/07/2016 Constitutional No fever 02/07/2016 Constitutional No insomnia 02/07/2016 Constitutional No malaise 02/07/2016 Constitutional No weight loss 02/07/2016 Constitutional No weight gain 02/07/2016 Constitutional No obesity 02/07/2016 Respiratory dyspnea on exertion 02/07/2016 Respiratory No dyspnea 0 02/07/2016 Musculoskeletal joint complaint 02/07/2016 Dermatologic No erythema 02/07/2016 Dermatologic No rash 05/2016 Dermatologic No sores Dermatologic ecchymosis 02/07/2016 Eyes No eye erythema 05/2016 Eyes No eye discharge Ears/Nose/Throat/Neck No dizziness 02/07/2016 Ears/Nose/Throat/Neck No headache 02/07/2016 Cardiovascular No chest pain/pressure 02/07/2016 Gastrointestinal No constipation 02/07/2016 Gastrointestinal No diarrhea 02/07/2016 Gastrointestinal No abdominal pain 02/07/2016 Genitourinary/Nephrology No dysuria 02/07/2016 Neurologic No alteration of consciousness 02/07/2016 Musculoskeletal myalgias 12/13/2015 Musculoskeletal No joint complaint 12/13/2015 Musculoskeletal No muscle weakness 12/13/2015 Dermatologic No rash Dermatologic No sores Dermatologic No erythema 12/13/2015 Dermatologic ecchymosis 12/13/2015 Constitutional No recent illness 12/13/2015 Constitutional No anorexia 12/13/2015 Constitutional No night sweats 12/13/2015 Constitutional No chills 12/13/2015 Constitutional No diaphoresis 12/13/2015 Constitutional No fatigue 12/13/2015 Constitutional No fever 12/13/2015 Constitutional No insomnia 12/13/2015 Constitutional No malaise 12/13/2015 Constitutional No weight loss 12/13/2015 Constitutional No weight gain 12/13/2015 Constitutional No obesity 12/13/2015 Respiratory No dyspnea 0 12/13/2015 Respiratory dyspnea on exertion 12/13/2015 Constitutional No recent illness 12/03/2015 Constitutional No anorexia 12/03/2015 Constitutional No night sweats 12/03/2015 Constitutional No chills 12/03/2015 Constitutional No diaphoresis 12/03/2015 Constitutional No fatigue 12/03/2015 Constitutional No fever 12/03/2015 Constitutional No insomnia 12/03/2015 Constitutional No malaise 12/03/2015 Constitutional No weight loss 12/03/2015 Constitutional No weight gain 12/03/2015 Constitutional No obesity 12/03/2015 Cardiovascular No chest pain/pressure 12/03/2015 Cardiovascular edema 12/2015 Cardiovascular No dyspnea 12/03/2015 Ears/Nose/Throat/Neck headache 12/03/2015 Ears/Nose/Throat/Neck No nasal discharge 12/03/2015 Ears/Nose/Throat/Neck No nasal allergies 12/03/2015 Respiratory No cigarette smoking 12/03/2015 Respiratory No chest tightness 12/03/2015 Respiratory No chest congestion 12/03/2015 Respiratory No cough 12/2015 Respiratory No dyspnea 0 12/03/2015 Respiratory No dyspnea on exertion 12/03/2015 Gastrointestinal No constipation 12/03/2015 Gastrointestinal No diarrhea 12/03/2015 Genitourinary/Nephrology No dysuria 12/03/2015 Musculoskeletal No muscle weakness 12/03/2015 Musculoskeletal No myalgias 12/03/2015 Musculoskeletal No joint complaint 12/03/2015 Dermatologic No sores Dermatologic No rash 12/2015 Eyes No vision change Psychiatric No anxiety 0 12/03/2015 Psychiatric No depression 12/03/2015 Constitutional No recent illness 11/20/2015 Constitutional No anorexia 11/20/2015 Constitutional No night sweats 11/20/2015 Constitutional No chills 11/20/2015 Constitutional No diaphoresis 11/20/2015 Constitutional No fatigue 11/20/2015 Constitutional No fever 11/20/2015 Constitutional No insomnia 11/20/2015 Constitutional No malaise 11/20/2015 Eyes No vision change Ears/Nose/Throat/Neck No nasal allergies 11/20/2015 Ears/Nose/Throat/Neck No nasal discharge 11/20/2015 Cardiovascular No chest pain/pressure 11/20/2015 Cardiovascular No dyspnea 11/20/2015 Cardiovascular edema Respiratory No chest congestion 11/20/2015 Respiratory No chest tightness 11/20/2015 Respiratory No cigarette smoking 11/20/2015 Respiratory No cough Respiratory No dyspnea on exertion 11/20/2015 Respiratory No dyspnea 0 11/20/2015 Gastrointestinal No constipation 11/20/2015 Gastrointestinal No diarrhea 11/20/2015 Genitourinary/Nephrology No dysuria 11/20/2015 Musculoskeletal No joint complaint 11/20/2015 Musculoskeletal No muscle weakness 11/20/2015 Musculoskeletal No myalgias 11/20/2015 Dermatologic No rash Dermatologic No sores Psychiatric No anxiety 0 11/20/2015 Psychiatric No depression 11/20/2015 Hematologic/Lymphatic abnormal ecchymoses 11/20/2015 Hematologic/Lymphatic abnormal bleed ing and bruising 11/20/2015 Constitutional No recent illness 09/17/2015 Constitutional No chills 09/17/2015 Constitutional No diaphoresis 09/17/2015 Constitutional fatigue 0 09/17/2015 Constitutional No fever 09/17/2015 Constitutional No insomnia 09/17/2015 Constitutional No malaise 09/17/2015 Eyes No eye discharge Eyes No eye erythema Ears/Nose/Throat/Neck No dizziness 09/17/2015 Ears/Nose/Throat/Neck No headache 09/17/2015 Ears/Nose/Throat/Neck nasal allergies 09/17/2015 Ears/Nose/Throat/Neck nasal discharge 09/17/2015 Cardiovascular No chest pain/pressure 09/17/2015 Cardiovascular No dyspnea 09/17/2015 Cardiovascular edema Respiratory No productive sputum 09/17/2015 Respiratory No cough Respiratory dyspnea on exertion 09/17/2015 Gastrointestinal No constipation 09/17/2015 Gastrointestinal No diarrhea 09/17/2015 Genitourinary/Nephrology No dysuria 09/17/2015 Musculoskeletal joint complaint 09/17/2015 Dermatologic rash 2015 Neurologic No alteration of consciousness 09/17/2015 Constitutional No recent illness 05/31/2015 Constitutional No anorexia 05/31/2015 Constitutional No night sweats 05/31/2015 Constitutional No chills 05/31/2015 Constitutional No diaphoresis 05/31/2015 Constitutional fatigue 1 08/01/2014 Constitutional No insomnia 05/31/2015 Constitutional No fever 05/31/2015 Constitutional No malaise 05/31/2015 Constitutional No weight loss 05/31/2015 Constitutional weight gain 05/31/2015 Eyes No eye discharge Eyes No eye erythema 09/2014 Ears/Nose/Throat/Neck No dizziness 05/31/2015 Ears/Nose/Throat/Neck No headache 05/31/2015 Cardiovascular No chest pain/pressure 05/31/2015 Cardiovascular No dyspnea 05/31/2015 Cardiovascular edema 09/2014 Respiratory No productive sputum 05/31/2015 Respiratory No cough 09/2014 Respiratory dyspnea on exertion 05/31/2015 Gastrointestinal No constipation 05/31/2015 Gastrointestinal No diarrhea 05/31/2015 Ears/Nose/Throat/Neck nasal allergies 05/31/2015 Ears/Nose/Throat/Neck nasal discharge 05/31/2015 Genitourinary/Nephrology No dysuria 05/31/2015 Musculoskeletal joint complaint 05/31/2015 Dermatologic No rash 09/2014 Neurologic No alteration of consciousness 05/31/2015 Constitutional No recent illness 02/05/2015 Constitutional No anorexia 02/05/2015 Constitutional No night sweats 02/05/2015 Constitutional No chills 02/05/2015 Constitutional No diaphoresis 02/05/2015 Constitutional fatigue 0 02/05/2015 Constitutional No fever 02/05/2015 Constitutional No insomnia 02/05/2015 Constitutional No malaise 02/05/2015 Constitutional No weight loss 02/05/2015 Constitutional No weight gain 02/05/2015 Eyes No eye discharge Eyes No eye erythema 04/2015 Ears/Nose/Throat/Neck nasal allergies 02/05/2015 Ears/Nose/Throat/Neck nasal discharge 02/05/2015 Ears/Nose/Throat/Neck No dizziness 02/05/2015 Ears/Nose/Throat/Neck No headache 02/05/2015 Ears/Nose/Throat/Neck No otalgia 02/05/2015 Ears/Nose/Throat/Neck sinus congestion 02/05/2015 Ears/Nose/Throat/Neck No sore throat 02/05/2015 Cardiovascular No chest pain/pressure 02/05/2015 Cardiovascular No dyspnea 02/05/2015 Cardiovascular edema 04/2015 Respiratory No productive sputum 02/05/2015 Respiratory No chest congestion 02/05/2015 Respiratory No cough 04/2015 Gastrointestinal No vomiting 02/05/2015 Gastrointestinal No diarrhea 02/05/2015 Gastrointestinal No constipation 02/05/2015 Genitourinary/Nephrology No dysuria 02/05/2015 Dermatologic No sores Musculoskeletal No joint complaint 02/05/2015 Neurologic No alteration of consciousness 02/05/2015 Constitutional No chills 11/20/2014 Constitutional No fatigue 11/20/2014 Constitutional No fever 11/20/2014 Constitutional No recent illness 11/20/2014 Ears/Nose/Throat/Neck No dizziness 11/20/2014 Ears/Nose/Throat/Neck No headache 11/20/2014 Cardiovascular No chest pain/pressure 11/20/2014 Cardiovascular No near-syncope/dizziness 11/20/2014 Cardiovascular No palpitations 11/20/2014 Respiratory No chest congestion 11/20/2014 Respiratory No cough Gastrointestinal No abdominal pain 11/20/2014 Gastrointestinal No constipation 11/20/2014 Gastrointestinal No diarrhea 11/20/2014 Gastrointestinal No nausea 11/20/2014 Gastrointestinal No vomiting 11/20/2014 Genitourinary/Nephrology No dysuria 11/20/2014 Neurologic No alteration of consciousness 11/20/2014 Musculoskeletal No stiffness 11/20/2014 Musculoskeletal No swelling 11/20/2014 Musculoskeletal muscle weakness 11/20/2014 Musculoskeletal No myalgias 11/20/2014 Dermatologic No rash Dermatologic No scar Psychiatric No anxiety 0 11/20/2014 Psychiatric No depression 11/20/2014 Eyes No blindness 2014 Eyes No vision change Musculoskeletal back pain 11/20/2014 Cardiovascular edema Dermatologic mole change 11/20/2014 Physical Exam Exam Name System Name It em Name Status Result Effective Dates Notes Full Exam - General 1994 Constitutional general appearance Overall: well developed 03/07/2019 None Full Exam - General 1994 Constitutional general appearance Overall: in no acute distress 03/07/2019 None Full Exam - General 1994 Constitutional general appearance Overall: well nourished 03/07/2019 None Full Exam - General 1994 Eyes pupils and irises Overall: pupils equal, round, reactive to light and accomodation 03/07/2019 None Full Exam - General 1994 Ears/Nose/Throat otoscopic exam Overall: external auditory canals clear 03/07/2019 None Full Exam - General 1994 Ears/Nose/Throat otoscopic exam Overall: tympanic membranes clear 03/07/2019 None Full Exam - General 1994 Ears/Nose/Throat lips/teeth/gingiva Overall: benign lips 03/07/2019 None Full Exam - General 1994 Ears/Nose/Throat lips/teeth/gingiva Overall: normal dentition 03/07/2019 None Full Exam - General 1995 Ears/Nose/Throat lips/teeth/gingiva Overall: benign gingiva 03/07/2019 None Full Exam - General 1994 Ears/Nose/Throat lips/teeth/gingiva Overall: no masses 03/07/2019 None Full Exam - General 1994 Ears/Nose/Throat oral cavity/pharynx/larynx Overall: oral mucosa clear 03/07/2019 None Full Exam - General 1994 Ears/Nose/Throat oral cavity/pharynx/larynx Overall: oropharyngeal mucosa clear 03/07/2019 None Full Exam - General 1995 Ears/Nose/Throat oral cavity/pharynx/larynx Overall: no masses 03/07/2019 None Full Exam - General 1994 Respiratory auscultation Overall: breath sounds clear bilaterally 03/07/2019 None Full Exam - General 1994 Respiratory respiratory effort/rhythm Overall: no retractions 03/07/2019 None Full Exam - General 1994 Respiratory respiratory effort/rhythm Overall: normal rate 03/07/2019 None Full Exam - General 1994 Cardiovascular extremities Overall: no clubbing 03/07/2019 None Full Exam - General 1994 Cardiovascular extremities Edema present: pitting 03/07/2019 trace to lower legs Full Exam - General 1994 Cardiovascular auscultation of heart Rate: regular rate 03/07/2019 None Full Exam - General 1994 Cardiovascular auscultation of heart Rhythm: irregular rhythm 03/07/2019 None Full Exam - General 1994 Abdomen abdominal exam Overall: no tenderness 03/07/2019 None Full Exam - General 1994 Abdomen abdominal exam Overall: normal bowel sounds 03/07/2019 None Full Exam - General 1994 Musculoskeletal gait and station Overall: normal gait 03/07/2019 None Full Exam - General 1994 Musculoskeletal gait and station Overall: normal station 03/07/2019 None Full Exam - General 1994 Psychiatric orientation/consciousness Overall: oriented to person, place and time 03/07/2019 None Full Exam - General 1994 Psychiatric mood and affect Overall: normal mood and affect 03/07/2019 None Full Exam - General 1994 Psychiatric appearance Overall: well-groomed, good eye contact 03/07/2019 None Full Exam - General 1994 Musculoskeletal spine, ribs and pelvis Sacroiliac joints: tender right sacroiliac joint 03/07/2019 None Full Exam - General 1994 Musculoskeletal spine, ribs and pelvis Sacroiliac joints: tender left sacroiliac joint 03/07/2019 None Full Exam - General 1994 Constitutional general appearance Overall: well developed 01/31/2019 None Full Exam - General 1994 Constitutional general appearance Overall: in no acute distress 01/31/2019 None Full Exam - General 1994 Constitutional general appearance Overall: well nourished 01/31/2019 None Full Exam - General 1994 Eyes pupils and irises Overall: pupils equal, round, reactive to light and accomodation 01/31/2019 None Full Exam - General 1994 Ears/Nose/Throat otoscopic exam Overall: external auditory canals clear 01/31/2019 None Full Exam - General 1994 Ears/Nose/Throat otoscopic exam Overall: tympanic membranes clear 01/31/2019 None Full Exam - General 1994 Ears/Nose/Throat lips/teeth/gingiva Overall: benign lips 01/31/2019 None Full Exam - General 1994 Ears/Nose/Throat lips/teeth/gingiva Overall: normal dentition 01/31/2019 None Full Exam - General 1994 Ears/Nose/Throat lips/teeth/gingiva Overall: benign gingiva 01/31/2019 None Full Exam - General 1994 Ears/Nose/Throat lips/teeth/gingiva Overall: no masses 01/31/2019 None Full Exam - General 1994 Ears/Nose/Throat oral cavity/pharynx/larynx Overall: oral mucosa clear 01/31/2019 None Full Exam - General 1994 Ears/Nose/Throat oral cavity/pharynx/larynx Overall: oropharyngeal mucosa clear 01/31/2019 None Full Exam - General 1994 Ears/Nose/Throat oral cavity/pharynx/larynx Overall: no masses 01/31/2019 None Full Exam - General 1994 Respiratory auscultation Overall: breath sounds clear bilaterally 01/31/2019 None Full Exam - General 1994 Respiratory respiratory effort/rhythm Overall: no retractions 01/31/2019 None Full Exam - General 1994 Respiratory respiratory effort/rhythm Overall: normal rate 01/31/2019 None Full Exam - General 1994 Cardiovascular extremities Overall: no clubbing 01/31/2019 None Full Exam - General 1994 Cardiovascular extremities Edema present: pitting 01/31/2019 None Full Exam - General 1994 Cardiovascular extremities Edema present: 2+ 01/31/2019 None Full Exam - General 1994 Cardiovascular auscultation of heart Rate: regular rate 01/31/2019 None Full Exam - General 1994 Cardiovascular auscultation of heart Rhythm: irregular rhythm 01/31/2019 None Full Exam - General 1994 Abdomen abdominal exam Overall: no tenderness 01/31/2019 None Full Exam - General 1994 Abdomen abdominal exam Overall: normal bowel sounds 01/31/2019 None Full Exam - General 1994 Musculoskeletal gait and station Overall: normal gait 01/31/2019 None Full Exam - General 1994 Musculoskeletal gait and station Overall: normal station 01/31/2019 None Full Exam - General 1994 Integument inspection of skin Dermatitis: scaling 01/31/2019 on lower right leg Full Exam - General 1994 Psychiatric orientation/consciousness Overall: oriented to person, place and time 01/31/2019 None Full Exam - General 1994 Psychiatric mood and affect Overall: normal mood and affect 01/31/2019 None Full Exam - General 1994 Psychiatric appearance Overall: well-groomed, good eye contact 01/31/2019 None Full Exam - General 1994 Constitutional general appearance Overall: well developed 01/10/2019 None Full Exam - General 1994 Constitutional general appearance Overall: in no acute distress 01/10/2019 None Full Exam - General 1994 Constitutional general appearance Overall: well nourished 01/10/2019 None Full Exam - General 1994 Eyes conjunctiva/eyelids Overall: conjunctiva clear 01/10/2019 None Full Exam - General 1994 Eyes conjunctiva/eyelids Overall: cornea clear 01/10/2019 None Full Exam - General 1995 Eyes conjunctiva/eyelids Overall: eyelids normal 01/10/2019 None Full Exam - General 1995 Ears/Nose/Throat lips/teeth/gingiva Overall: benign lips 01/10/2019 None Full Exam - General 1995 Ears/Nose/Throat oral cavity/pharynx/larynx Overall: oral mucosa clear 01/10/2019 None Full Exam - General 1994 Respiratory respiratory effort/rhythm Overall: no retractions 01/10/2019 None Full Exam - General 1994 Respiratory respiratory effort/rhythm Overall: normal rate 01/10/2019 None Full Exam - General 1994 Cardiovascular auscultation of heart Overall: regular rate 01/10/2019 None Full Exam - General 1994 Cardiovascular auscultation of heart Overall: normal heart sounds 01/10/2019 None Full Exam - General 1994 Musculoskeletal head and neck Overall: head atraumatic 01/10/2019 None Full Exam - General 1994 Neurologic cranial nerves Overall: crainial nerves 2 - 12 grossly intact 01/10/2019 None Full Exam - General 1994 Psychiatric orientation/consciousness Overall: oriented to person, place and time 01/10/2019 None Full Exam - General 1994 Psychiatric mood and affect Overall: normal mood and affect 01/10/2019 None Full Exam - General 1994 Constitutional general appearance Overall: well developed 12/05/2018 None Full Exam - General 1994 Constitutional general appearance Overall: in no acute distress 12/05/2018 None Full Exam - General 1994 Constitutional general appearance Overall: well nourished 12/05/2018 None Full Exam - General 1994 Eyes pupils and irises Overall: pupils equal, round, reactive to light and accomodation 12/05/2018 None Full Exam - General 1994 Ears/Nose/Throat otoscopic exam Overall: external auditory canals clear 12/05/2018 None Full Exam - General 1994 Ears/Nose/Throat otoscopic exam Overall: tympanic membranes clear 12/05/2018 None Full Exam - General 1994 Ears/Nose/Throat lips/teeth/gingiva Overall: benign lips 12/05/2018 None Full Exam - General 1994 Ears/Nose/Throat lips/teeth/gingiva Overall: normal dentition 12/05/2018 None Full Exam - General 1994 Ears/Nose/Throat lips/teeth/gingiva Overall: benign gingiva 12/05/2018 None Full Exam - General 1994 Ears/Nose/Throat lips/teeth/gingiva Overall: no masses 12/05/2018 None Full Exam - General 1994 Ears/Nose/Throat oral cavity/pharynx/larynx Overall: oral mucosa clear 12/05/2018 None Full Exam - General 1994 Ears/Nose/Throat oral cavity/pharynx/larynx Overall: oropharyngeal mucosa clear 12/05/2018 None Full Exam - General 1994 Ears/Nose/Throat oral cavity/pharynx/larynx Overall: no masses 12/05/2018 None Full Exam - General 1994 Respiratory auscultation Overall: breath sounds clear bilaterally 12/05/2018 None Full Exam - General 1994 Respiratory respiratory effort/rhythm Overall: no retractions 12/05/2018 None Full Exam - General 1994 Respiratory respiratory effort/rhythm Overall: normal rate 12/05/2018 None Full Exam - General 1994 Cardiovascular auscultation of heart Rate: regular rate 12/05/2018 None Full Exam - General 1994 Cardiovascular auscultation of heart Rhythm: irregular rhythm 12/05/2018 None Full Exam - General 1994 Abdomen abdominal exam Overall: no tenderness 12/05/2018 None Full Exam - General 1994 Abdomen abdominal exam Overall: normal bowel sounds 12/05/2018 None Full Exam - General 1994 Lymphatic neck nodes Overall: anterior cervical chain benign 12/05/2018 None Full Exam - General 1994 Lymphatic neck nodes Overall: posterior cervical chain benign 12/05/2018 None Full Exam - General 1994 Musculoskeletal gait and station Overall: normal gait 12/05/2018 None Full Exam - General 1994 Musculoskeletal gait and station Overall: normal station 12/05/2018 None Full Exam - General 1994 Psychiatric orientation/consciousness Overall: oriented to person, place and time 12/05/2018 None Full Exam - General 1994 Psychiatric mood and affect Overall: normal mood and affect 12/05/2018 None Full Exam - General 1994 Psychiatric appearance Overall: well-groomed, good eye contact 12/05/2018 None Full Exam - Cardiology Cardiovascular extremities Overall: no clubbing 12/05/2018 None Full Exam - General 1994 Constitutional general appearance Overall: well developed 11/17/2018 None Full Exam - General 1994 Constitutional general appearance Overall: in no acute distress 11/17/2018 None Full Exam - General 1994 Constitutional general appearance Overall: well nourished 11/17/2018 None Full Exam - General 1994 Eyes pupils and irises Overall: pupils equal, round, reactive to light and accomodation 11/17/2018 None Full Exam - General 1994 Ears/Nose/Throat otoscopic exam Overall: external auditory canals clear 11/17/2018 None Full Exam - General 1994 Ears/Nose/Throat otoscopic exam Overall: tympanic membranes clear 11/17/2018 None Full Exam - General 1994 Ears/Nose/Throat lips/teeth/gingiva Overall: benign lips 11/17/2018 None Full Exam - General 1994 Ears/Nose/Throat lips/teeth/gingiva Overall: normal dentition 11/17/2018 None Full Exam - General 1994 Ears/Nose/Throat lips/teeth/gingiva Overall: benign gingiva 11/17/2018 None Full Exam - General 1994 Ears/Nose/Throat lips/teeth/gingiva Overall: no masses 11/17/2018 None Full Exam - General 1994 Ears/Nose/Throat oral cavity/pharynx/larynx Overall: oral mucosa clear 11/17/2018 None Full Exam - General 1994 Ears/Nose/Throat oral cavity/pharynx/larynx Overall: oropharyngeal mucosa clear 11/17/2018 None Full Exam - General 1994 Ears/Nose/Throat oral cavity/pharynx/larynx Overall: no masses 11/17/2018 None Full Exam - General 1994 Respiratory auscultation Overall: breath sounds clear bilaterally 11/17/2018 None Full Exam - General 1994 Respiratory respiratory effort/rhythm Overall: no retractions 11/17/2018 None Full Exam - General 1994 Respiratory respiratory effort/rhythm Overall: normal rate 11/17/2018 None Full Exam - General 1994 Cardiovascular extremities Overall: no clubbing 11/17/2018 None Full Exam - General 1994 Cardiovascular extremities Edema present: pitting 11/17/2018 None Full Exam - General 1994 Cardiovascular extremities Edema present: 1+ 11/17/2018 None Full Exam - General 1994 Cardiovascular auscultation of heart Rate: regular rate 11/17/2018 None Full Exam - General 1994 Cardiovascular auscultation of heart Rhythm: irregular rhythm 11/17/2018 None Full Exam - General 1994 Abdomen abdominal exam Overall: no tenderness 11/17/2018 None Full Exam - General 1994 Abdomen abdominal exam Overall: normal bowel sounds 11/17/2018 None Full Exam - General 1994 Lymphatic neck nodes Overall: anterior cervical chain benign 11/17/2018 None Full Exam - General 1994 Lymphatic neck nodes Overall: posterior cervical chain benign 11/17/2018 None Full Exam - General 1994 Musculoskeletal gait and station Overall: normal gait 11/17/2018 None Full Exam - General 1994 Musculoskeletal gait and station Overall: normal station 11/17/2018 None Full Exam - General 1994 Psychiatric orientation/consciousness Overall: oriented to person, place and time 11/17/2018 None Full Exam - General 1994 Psychiatric mood and affect Overall: normal mood and affect 11/17/2018 None Full Exam - General 1994 Psychiatric appearance Overall: well-groomed, good eye contact 11/17/2018 None Full Exam - Cardiology Integument inspection/palpation Right leg: tender 11/17/2018 contusion right posterior lower leg - tender to palpation Full Exam - General 1994 Constitutional general appearance Overall: well developed 10/27/2018 None Full Exam - General 1994 Constitutional general appearance Overall: in no acute distress 10/27/2018 None Full Exam - General 1994 Constitutional general appearance Overall: well nourished 10/27/2018 None Full Exam - General 1994 Eyes pupils and irises Overall: pupils equal, round, reactive to light and accomodation 10/27/2018 None Full Exam - General 1994 Ears/Nose/Throat otoscopic exam Overall: external auditory canals clear 10/27/2018 None Full Exam - General 1994 Ears/Nose/Throat otoscopic exam Overall: tympanic membranes clear 10/27/2018 None Full Exam - General 1994 Ears/Nose/Throat lips/teeth/gingiva Overall: benign lips 10/27/2018 None Full Exam - General 1994 Ears/Nose/Throat lips/teeth/gingiva Overall: normal dentition 10/27/2018 None Full Exam - General 1994 Ears/Nose/Throat lips/teeth/gingiva Overall: benign gingiva 10/27/2018 None Full Exam - General 1994 Ears/Nose/Throat lips/teeth/gingiva Overall: no masses 10/27/2018 None Full Exam - General 1994 Ears/Nose/Throat oral cavity/pharynx/larynx Overall: oral mucosa clear 10/27/2018 None Full Exam - General 1995 Ears/Nose/Throat oral cavity/pharynx/larynx Overall: oropharyngeal mucosa clear 10/27/2018 None Full Exam - General 1994 Ears/Nose/Throat oral cavity/pharynx/larynx Overall: no masses 10/27/2018 None Full Exam - General 1994 Respiratory auscultation Overall: breath sounds clear bilaterally 10/27/2018 None Full Exam - General 1994 Respiratory respiratory effort/rhythm Overall: no retractions 10/27/2018 None Full Exam - General 1994 Respiratory respiratory effort/rhythm Overall: normal rate 10/27/2018 None Full Exam - General 1994 Cardiovascular extremities Overall: no clubbing 10/27/2018 None Full Exam - General 1994 Cardiovascular extremities Edema present: pitting 10/27/2018 None Full Exam - General 1994 Cardiovascular extremities Edema present: severity 3+ at ankles and 2 +at calves 1+ posterior thighs 10/27/2018 None Full Exam - General 1994 Cardiovascular auscultation of heart Rate: regular rate 10/27/2018 None Full Exam - General 1994 Cardiovascular auscultation of heart Rhythm: irregular rhythm 10/27/2018 None Full Exam - General 1994 Abdomen abdominal exam Overall: no tenderness 10/27/2018 None Full Exam - General 1994 Abdomen abdominal exam Overall: normal bowel sounds 10/27/2018 None Full Exam - General 1994 Lymphatic neck nodes Overall: anterior cervical chain benign 10/27/2018 None Full Exam - General 1994 Lymphatic neck nodes Overall: posterior cervical chain benign 10/27/2018 None Full Exam - General 1994 Musculoskeletal gait and station Overall: normal gait 10/27/2018 None Full Exam - General 1994 Musculoskeletal gait and station Overall: normal station 10/27/2018 None Full Exam - General 1994 Psychiatric orientation/consciousness Overall: oriented to person, place and time 10/27/2018 None Full Exam - General 1994 Psychiatric mood and affect Overall: normal mood and affect 10/27/2018 None Full Exam - General 1994 Psychiatric appearance Overall: well-groomed, good eye contact 10/27/2018 None Full Exam - General 1994 Constitutional general appearance Overall: well developed 09/27/2018 None Full Exam - General 1994 Constitutional general appearance Overall: in no acute distress 09/27/2018 None Full Exam - General 1994 Constitutional general appearance Overall: well nourished 09/27/2018 None Full Exam - General 1994 Eyes pupils and irises Overall: pupils equal, round, reactive to light and accomodation 09/27/2018 None Full Exam - General 1994 Ears/Nose/Throat otoscopic exam Overall: external auditory canals clear 09/27/2018 None Full Exam - General 1994 Ears/Nose/Throat otoscopic exam Overall: tympanic membranes clear 09/27/2018 None Full Exam - General 1995 Ears/Nose/Throat lips/teeth/gingiva Overall: benign lips 09/27/2018 None Full Exam - General 1994 Ears/Nose/Throat lips/teeth/gingiva Overall: normal dentition 09/27/2018 None Full Exam - General 1995 Ears/Nose/Throat lips/teeth/gingiva Overall: benign gingiva 09/27/2018 None Full Exam - General 1994 Ears/Nose/Throat lips/teeth/gingiva Overall: no masses 09/27/2018 None Full Exam - General 1994 Ears/Nose/Throat oral cavity/pharynx/larynx Overall: oral mucosa clear 09/27/2018 None Full Exam - General 1994 Ears/Nose/Throat oral cavity/pharynx/larynx Overall: oropharyngeal mucosa clear 09/27/2018 None Full Exam - General 1994 Ears/Nose/Throat oral cavity/pharynx/larynx Overall: no masses 09/27/2018 None Full Exam - General 1994 Respiratory auscultation Overall: breath sounds clear bilaterally 09/27/2018 None Full Exam - General 1994 Respiratory respiratory effort/rhythm Overall: no retractions 09/27/2018 None Full Exam - General 1994 Respiratory respiratory effort/rhythm Overall: normal rate 09/27/2018 None Full Exam - General 1994 Cardiovascular extremities Overall: no clubbing 09/27/2018 None Full Exam - General 1994 Cardiovascular extremities Edema present: pitting 09/27/2018 None Full Exam - General 1994 Cardiovascular extremities Edema present: 1+ 09/27/2018 None Full Exam - General 1994 Cardiovascular auscultation of heart Rate: regular rate 09/27/2018 None Full Exam - General 1994 Cardiovascular auscultation of heart Rhythm: irregular rhythm 09/27/2018 None Full Exam - General 1994 Abdomen abdominal exam Overall: no tenderness 09/27/2018 None Full Exam - General 1994 Abdomen abdominal exam Overall: normal bowel sounds 09/27/2018 None Full Exam - General 1994 Lymphatic neck nodes Overall: anterior cervical chain benign 09/27/2018 None Full Exam - General 1994 Lymphatic neck nodes Overall: posterior cervical chain benign 09/27/2018 None Full Exam - General 1994 Musculoskeletal gait and station Overall: normal gait 09/27/2018 None Full Exam - General 1994 Musculoskeletal gait and station Overall: normal station 09/27/2018 None Full Exam - General 1994 Integument inspection of skin Dermatitis: scaling 09/27/2018 on lower right leg Full Exam - General 1994 Psychiatric orientation/consciousness Overall: oriented to person, place and time 09/27/2018 None Full Exam - General 1994 Psychiatric mood and affect Overall: normal mood and affect 09/27/2018 None Full Exam - General 1994 Psychiatric appearance Overall: well-groomed, good eye contact 09/27/2018 None Full Exam - General 1994 Constitutional general appearance Overall: well developed 08/16/2018 None Full Exam - General 1994 Constitutional general appearance Overall: in no acute distress 08/16/2018 None Full Exam - General 1994 Constitutional general appearance Overall: well nourished 08/16/2018 None Full Exam - General 1994 Eyes pupils and irises Overall: pupils equal, round, reactive to light and accomodation 08/16/2018 None Full Exam - General 1994 Ears/Nose/Throat otoscopic exam Overall: external auditory canals clear 08/16/2018 None Full Exam - General 1994 Ears/Nose/Throat otoscopic exam Overall: tympanic membranes clear 08/16/2018 None Full Exam - General 1994 Ears/Nose/Throat lips/teeth/gingiva Overall: benign lips 08/16/2018 None Full Exam - General 1994 Ears/Nose/Throat lips/teeth/gingiva Overall: normal dentition 08/16/2018 None Full Exam - General 1994 Ears/Nose/Throat lips/teeth/gingiva Overall: benign gingiva 08/16/2018 None Full Exam - General 1994 Ears/Nose/Throat lips/teeth/gingiva Overall: no masses 08/16/2018 None Full Exam - General 1994 Ears/Nose/Throat oral cavity/pharynx/larynx Overall: oral mucosa clear 08/16/2018 None Full Exam - General 1994 Ears/Nose/Throat oral cavity/pharynx/larynx Overall: oropharyngeal mucosa clear 08/16/2018 None Full Exam - General 1994 Ears/Nose/Throat oral cavity/pharynx/larynx Overall: no masses 08/16/2018 None Full Exam - General 1994 Respiratory auscultation Overall: breath sounds clear bilaterally 08/16/2018 None Full Exam - General 1994 Respiratory respiratory effort/rhythm Overall: no retractions 08/16/2018 None Full Exam - General 1994 Respiratory respiratory effort/rhythm Overall: normal rate 08/16/2018 None Full Exam - General 1994 Cardiovascular extremities Overall: no clubbing 08/16/2018 None Full Exam - General 1994 Cardiovascular extremities Edema present: pitting 08/16/2018 None Full Exam - General 1994 Cardiovascular extremities Edema present: severity 3+ at ankles and 2 +at calves 1+ posterior thighs 08/16/2018 None Full Exam - General 1994 Cardiovascular auscultation of heart Rate: regular rate 08/16/2018 None Full Exam - General 1994 Cardiovascular auscultation of heart Rhythm: irregular rhythm 08/16/2018 None Full Exam - General 1994 Abdomen abdominal exam Overall: no tenderness 08/16/2018 None Full Exam - General 1994 Abdomen abdominal exam Overall: normal bowel sounds 08/16/2018 None Full Exam - General 1994 Lymphatic neck nodes Overall: anterior cervical chain benign 08/16/2018 None Full Exam - General 1994 Lymphatic neck nodes Overall: posterior cervical chain benign 08/16/2018 None Full Exam - General 1994 Musculoskeletal gait and station Overall: normal gait 08/16/2018 None Full Exam - General 1994 Musculoskeletal gait and station Overall: normal station 08/16/2018 None Full Exam - General 1994 Psychiatric orientation/consciousness Overall: oriented to person, place and time 08/16/2018 None Full Exam - General 1994 Psychiatric mood and affect Overall: normal mood and affect 08/16/2018 None Full Exam - General 1994 Psychiatric appearance Overall: well-groomed, good eye contact 08/16/2018 None Full Exam - General 1994 Integument inspection of skin Dermatitis: scaling 08/16/2018 on scalp Full Exam - General 1994 Integument inspection of skin Dermatitis: pustule 08/16/2018 on top of head/scalp Full Exam - General 1994 Constitutional general appearance Overall: well developed 07/11/2018 None Full Exam - General 1994 Constitutional general appearance Overall: in no acute distress 07/11/2018 None Full Exam - General 1994 Constitutional general appearance Overall: well nourished 07/11/2018 None Full Exam - General 1994 Eyes pupils and irises Overall: pupils equal, round, reactive to light and accomodation 07/11/2018 None Full Exam - General 1994 Ears/Nose/Throat otoscopic exam Overall: external auditory canals clear 07/11/2018 None Full Exam - General 1994 Ears/Nose/Throat otoscopic exam Overall: tympanic membranes clear 07/11/2018 None Full Exam - General 1994 Ears/Nose/Throat lips/teeth/gingiva Overall: benign lips 07/11/2018 None Full Exam - General 1994 Ears/Nose/Throat lips/teeth/gingiva Overall: normal dentition 07/11/2018 None Full Exam - General 1994 Ears/Nose/Throat lips/teeth/gingiva Overall: benign gingiva 07/11/2018 None Full Exam - General 1994 Ears/Nose/Throat lips/teeth/gingiva Overall: no masses 07/11/2018 None Full Exam - General 1995 Ears/Nose/Throat oral cavity/pharynx/larynx Overall: oral mucosa clear 07/11/2018 None Full Exam - General 1995 Ears/Nose/Throat oral cavity/pharynx/larynx Overall: oropharyngeal mucosa clear 07/11/2018 None Full Exam - General 1994 Ears/Nose/Throat oral cavity/pharynx/larynx Overall: no masses 07/11/2018 None Full Exam - General 1994 Respiratory auscultation Overall: breath sounds clear bilaterally 07/11/2018 None Full Exam - General 1994 Respiratory respiratory effort/rhythm Overall: no retractions 07/11/2018 None Full Exam - General 1994 Respiratory respiratory effort/rhythm Overall: normal rate 07/11/2018 None Full Exam - General 1994 Cardiovascular extremities Overall: no clubbing 07/11/2018 None Full Exam - General 1994 Cardiovascular auscultation of heart Rate: regular rate 07/11/2018 None Full Exam - General 1994 Cardiovascular auscultation of heart Rhythm: irregular rhythm 07/11/2018 None Full Exam - General 1994 Abdomen abdominal exam Overall: no tenderness 07/11/2018 None Full Exam - General 1994 Abdomen abdominal exam Overall: normal bowel sounds 07/11/2018 None Full Exam - General 1994 Lymphatic neck nodes Overall: anterior cervical chain benign 07/11/2018 None Full Exam - General 1994 Lymphatic neck nodes Overall: posterior cervical chain benign 07/11/2018 None Full Exam - General 1994 Musculoskeletal gait and station Overall: normal gait 07/11/2018 None Full Exam - General 1994 Musculoskeletal gait and station Overall: normal station 07/11/2018 None Full Exam - General 1994 Psychiatric orientation/consciousness Overall: oriented to person, place and time 07/11/2018 None Full Exam - General 1994 Psychiatric mood and affect Overall: normal mood and affect 07/11/2018 None Full Exam - General 1994 Psychiatric appearance Overall: well-groomed, good eye contact 07/11/2018 None Full Exam - General 1994 Cardiovascular extremities Edema present: pitting 07/11/2018 None Full Exam - General 1994 Cardiovascular extremities Edema present: severity 3+ at ankles and 2 +at calves 1+ posterior thighs 07/11/2018 None Full Exam - General 1994 Constitutional general appearance Overall: well developed 03/24/2018 None Full Exam - General 1994 Constitutional general appearance Overall: in no acute distress 03/24/2018 None Full Exam - General 1994 Constitutional general appearance Overall: well nourished 03/24/2018 None Full Exam - General 1994 Eyes pupils and irises Overall: pupils equal, round, reactive to light and accomodation 03/24/2018 None Full Exam - General 1994 Ears/Nose/Throat otoscopic exam Overall: external auditory canals clear 03/24/2018 None Full Exam - General 1994 Ears/Nose/Throat otoscopic exam Overall: tympanic membranes clear 03/24/2018 None Full Exam - General 1995 Ears/Nose/Throat lips/teeth/gingiva Overall: benign lips 03/24/2018 None Full Exam - General 1994 Ears/Nose/Throat lips/teeth/gingiva Overall: normal dentition 03/24/2018 None Full Exam - General 1994 Ears/Nose/Throat lips/teeth/gingiva Overall: benign gingiva 03/24/2018 None Full Exam - General 1994 Ears/Nose/Throat lips/teeth/gingiva Overall: no masses 03/24/2018 None Full Exam - General 1994 Ears/Nose/Throat oral cavity/pharynx/larynx Overall: oral mucosa clear 03/24/2018 None Full Exam - General 1994 Ears/Nose/Throat oral cavity/pharynx/larynx Overall: oropharyngeal mucosa clear 03/24/2018 None Full Exam - General 1995 Ears/Nose/Throat oral cavity/pharynx/larynx Overall: no masses 03/24/2018 None Full Exam - General 1994 Respiratory auscultation Overall: breath sounds clear bilaterally 03/24/2018 None Full Exam - General 1994 Respiratory respiratory effort/rhythm Overall: no retractions 03/24/2018 None Full Exam - General 1994 Respiratory respiratory effort/rhythm Overall: normal rate 03/24/2018 None Full Exam - General 1994 Cardiovascular extremities Overall: no clubbing 03/24/2018 None Full Exam - General 1994 Cardiovascular auscultation of heart Rate: regular rate 03/24/2018 None Full Exam - General 1994 Cardiovascular auscultation of heart Rhythm: irregular rhythm 03/24/2018 None Full Exam - General 1994 Abdomen abdominal exam Overall: no tenderness 03/24/2018 None Full Exam - General 1994 Abdomen abdominal exam Overall: normal bowel sounds 03/24/2018 None Full Exam - General 1994 Musculoskeletal gait and station Overall: normal gait 03/24/2018 None Full Exam - General 1994 Musculoskeletal gait and station Overall: normal station 03/24/2018 None Full Exam - General 1994 Psychiatric orientation/consciousness Overall: oriented to person, place and time 03/24/2018 None Full Exam - General 1994 Psychiatric mood and affect Overall: normal mood and affect 03/24/2018 None Full Exam - General 1994 Psychiatric appearance Overall: well-groomed, good eye contact 03/24/2018 None Full Exam - General 1994 Lymphatic neck nodes Overall: anterior cervical chain benign 03/24/2018 None Full Exam - General 1994 Lymphatic neck nodes Overall: posterior cervical chain benign 03/24/2018 None Full Exam - General 1994 Constitutional general appearance Overall: well developed 11/18/2017 None Full Exam - General 1994 Constitutional general appearance Overall: in no acute distress 11/18/2017 None Full Exam - General 1994 Constitutional general appearance Overall: well nourished 11/18/2017 None Full Exam - General 1994 Eyes pupils and irises Overall: pupils equal, round, reactive to light and accomodation 11/18/2017 None Full Exam - General 1994 Ears/Nose/Throat otoscopic exam Overall: external auditory canals clear 11/18/2017 None Full Exam - General 1994 Ears/Nose/Throat otoscopic exam Overall: tympanic membranes clear 11/18/2017 None Full Exam - General 1994 Ears/Nose/Throat lips/teeth/gingiva Overall: benign lips 11/18/2017 None Full Exam - General 1994 Ears/Nose/Throat lips/teeth/gingiva Overall: normal dentition 11/18/2017 None Full Exam - General 1994 Ears/Nose/Throat lips/teeth/gingiva Overall: benign gingiva 11/18/2017 None Full Exam - General 1994 Ears/Nose/Throat lips/teeth/gingiva Overall: no masses 11/18/2017 None Full Exam - General 1994 Ears/Nose/Throat oral cavity/pharynx/larynx Overall: oral mucosa clear 11/18/2017 None Full Exam - General 1994 Ears/Nose/Throat oral cavity/pharynx/larynx Overall: oropharyngeal mucosa clear 11/18/2017 None Full Exam - General 1994 Ears/Nose/Throat oral cavity/pharynx/larynx Overall: no masses 11/18/2017 None Full Exam - General 1994 Respiratory auscultation Overall: breath sounds clear bilaterally 11/18/2017 None Full Exam - General 1994 Respiratory respiratory effort/rhythm Overall: no retractions 11/18/2017 None Full Exam - General 1994 Respiratory respiratory effort/rhythm Overall: normal rate 11/18/2017 None Full Exam - General 1994 Cardiovascular extremities Overall: no clubbing 11/18/2017 None Full Exam - General 1994 Cardiovascular auscultation of heart Rate: regular rate 11/18/2017 None Full Exam - General 1994 Cardiovascular auscultation of heart Rhythm: irregular rhythm 11/18/2017 None Full Exam - General 1994 Abdomen abdominal exam Overall: no tenderness 11/18/2017 None Full Exam - General 1994 Abdomen abdominal exam Overall: normal bowel sounds 11/18/2017 None Full Exam - General 1994 Musculoskeletal lower extremity Inspection - knee: swelling 11/18/2017 None Full Exam - General 1994 Musculoskeletal lower extremity Inspection - lower leg: swelling 11/18/2017 None Full Exam - General 1994 Musculoskeletal gait and station Overall: normal gait 11/18/2017 None Full Exam - General 1994 Musculoskeletal gait and station Overall: normal station 11/18/2017 None Full Exam - General 1994 Musculoskeletal head and neck Cervical Spine: tender 11/18/2017 along left side of neck a t muscles Full Exam - General 1994 Psychiatric orientation/consciousness Overall: oriented to person, place and time 11/18/2017 None Full Exam - General 1994 Psychiatric mood and affect Overall: normal mood and affect 11/18/2017 None Full Exam - General 1994 Psychiatric appearance Overall: well-groomed, good eye contact 11/18/2017 None Full Exam - General 1994 Constitutional general appearance Overall: well developed 09/30/2017 None Full Exam - General 1994 Constitutional general appearance Overall: in no acute distress 09/30/2017 None Full Exam - General 1994 Constitutional general appearance Overall: well nourished 09/30/2017 None Full Exam - General 1994 Eyes conjunctiva/eyelids Overall: conjunctiva clear 09/30/2017 None Full Exam - General 1994 Eyes conjunctiva/eyelids Overall: cornea clear 09/30/2017 None Full Exam - General 1994 Eyes conjunctiva/eyelids Overall: eyelids normal 09/30/2017 None Full Exam - General 1994 Ears/Nose/Throat otoscopic exam External auditory canal: partial cerumen occlusion 09/30/2017 None Full Exam - General 1994 Ears/Nose/Throat otoscopic exam Overall: tympanic membranes clear 09/30/2017 None Full Exam - General 1994 Ears/Nose/Throat lips/teeth/gingiva Overall: benign lips 09/30/2017 None Full Exam - General 1994 Ears/Nose/Throat oral cavity/pharynx/larynx Overall: oral mucosa clear 09/30/2017 None Full Exam - General 1994 Ears/Nose/Throat oral cavity/pharynx/larynx Posterior Pharynx: clear post nasal drainage 09/30/2017 None Full Exam - General 1994 Respiratory respiratory effort/rhythm Overall: normal rate 09/30/2017 None Full Exam - General 1994 Respiratory respiratory effort/rhythm Overall: no retractions 09/30/2017 None Full Exam - General 1994 Respiratory auscultation Overall: breath sounds clear bilaterally 09/30/2017 None Full Exam - General 1994 Cardiovascular auscultation of heart Rate: regular rate 09/30/2017 None Full Exam - General 1994 Cardiovascular auscultation of heart Rhythm: irregularly irregular rhythm 09/30/2017 None Full Exam - General 1994 Cardiovascular extremities Edema present: pitting 09/30/2017 None Full Exam - General 1994 Cardiovascular extremities Edema present: severity 1+ - 4+: 3+ 09/30/2017 None Full Exam - General 1994 Cardiovascular extremities Edema present: bilateral 09/30/2017 None Full Exam - General 1994 Cardiovascular extremities Edema present: to leg 09/30/2017 None Full Exam - General 1994 Musculoskeletal head and neck Overall: head atraumatic 09/30/2017 None Full Exam - General 1994 Neurologic cranial nerves Overall: crainial nerves 2 - 12 grossly intact 09/30/2017 None Full Exam - General 1994 Psychiatric orientation/consciousness Overall: oriented to person, place and time 09/30/2017 None Full Exam - General 1994 Psychiatric mood and affect Overall: normal mood and affect 09/30/2017 None Full Exam - General 1994 Psychiatric appearance Overall: well-groomed, good eye contact 09/30/2017 None Full Exam - General 1994 Constitutional general appearance Overall: well developed 08/17/2017 None Full Exam - General 1994 Constitutional general appearance Overall: in no acute distress 08/17/2017 None Full Exam - General 1994 Constitutional general appearance Overall: well nourished 08/17/2017 None Full Exam - General 1994 Eyes pupils and irises Overall: pupils equal, round, reactive to light and accomodation 08/17/2017 None Full Exam - General 1994 Ears/Nose/Throat otoscopic exam Overall: external auditory canals clear 08/17/2017 None Full Exam - General 1994 Ears/Nose/Throat otoscopic exam Overall: tympanic membranes clear 08/17/2017 None Full Exam - General 1994 Ears/Nose/Throat lips/teeth/gingiva Overall: benign lips 08/17/2017 None Full Exam - General 1994 Ears/Nose/Throat lips/teeth/gingiva Overall: normal dentition 08/17/2017 None Full Exam - General 1994 Ears/Nose/Throat lips/teeth/gingiva Overall: benign gingiva 08/17/2017 None Full Exam - General 1994 Ears/Nose/Throat lips/teeth/gingiva Overall: no masses 08/17/2017 None Full Exam - General 1994 Ears/Nose/Throat oral cavity/pharynx/larynx Overall: oral mucosa clear 08/17/2017 None Full Exam - General 1994 Ears/Nose/Throat oral cavity/pharynx/larynx Overall: oropharyngeal mucosa clear 08/17/2017 None Full Exam - General 1994 Ears/Nose/Throat oral cavity/pharynx/larynx Overall: no masses 08/17/2017 None Full Exam - General 1994 Respiratory auscultation Overall: breath sounds clear bilaterally 08/17/2017 None Full Exam - General 1994 Respiratory respiratory effort/rhythm Overall: no retractions 08/17/2017 None Full Exam - General 1994 Respiratory respiratory effort/rhythm Overall: normal rate 08/17/2017 None Full Exam - General 1994 Cardiovascular extremities Overall: no clubbing 08/17/2017 None Full Exam - General 1994 Cardiovascular extremities Edema present: pitting 08/17/2017 None Full Exam - General 1994 Cardiovascular extremities Edema present: severity 1+ - 4+: 4+ 08/17/2017 None Full Exam - General 1994 Cardiovascular extremities Edema present: bilateral 08/17/2017 None Full Exam - General 1994 Cardiovascular extremities Edema present: to leg 08/17/2017 None Full Exam - General 1994 Cardiovascular extremities Edema present: to knees 08/17/2017 None Full Exam - General 1994 Cardiovascular extremities Edema present: to thighs 08/17/2017 None Full Exam - General 1994 Cardiovascular auscultation of heart Rate: regular rate 08/17/2017 None Full Exam - General 1994 Cardiovascular auscultation of heart Rhythm: irregular rhythm 08/17/2017 None Full Exam - General 1994 Abdomen abdominal exam Overall: no tenderness 08/17/2017 None Full Exam - General 1994 Abdomen abdominal exam Overall: normal bowel sounds 08/17/2017 None Full Exam - General 1994 Musculoskeletal lower extremity Inspection - knee: swelling 08/17/2017 None Full Exam - General 1994 Musculoskeletal lower extremity Inspection - lower leg: swelling 08/17/2017 None Full Exam - General 1994 Musculoskeletal gait and station Overall: normal gait 08/17/2017 None Full Exam - General 1994 Musculoskeletal gait and station Overall: normal station 08/17/2017 None Full Exam - General 1994 Psychiatric orientation/consciousness Overall: oriented to person, place and time 08/17/2017 None Full Exam - General 1994 Psychiatric mood and affect Overall: normal mood and affect 08/17/2017 None Full Exam - General 1994 Psychiatric appearance Overall: well-groomed, good eye contact 08/17/2017 None Full Exam - General 1994 Constitutional general appearance Overall: well developed 06/15/2017 None Full Exam - General 1994 Constitutional general appearance Overall: in no acute distress 06/15/2017 None Full Exam - General 1994 Constitutional general appearance Overall: well nourished 06/15/2017 None Full Exam - General 1994 Eyes pupils and irises Overall: pupils equal, round, reactive to light and accomodation 06/15/2017 None Full Exam - General 1994 Ears/Nose/Throat otoscopic exam Overall: external auditory canals clear 06/15/2017 None Full Exam - General 1994 Ears/Nose/Throat otoscopic exam Overall: tympanic membranes clear 06/15/2017 None Full Exam - General 1994 Ears/Nose/Throat lips/teeth/gingiva Overall: benign lips 06/15/2017 None Full Exam - General 1994 Ears/Nose/Throat lips/teeth/gingiva Overall: normal dentition 06/15/2017 None Full Exam - General 1994 Ears/Nose/Throat lips/teeth/gingiva Overall: benign gingiva 06/15/2017 None Full Exam - General 1994 Ears/Nose/Throat lips/teeth/gingiva Overall: no masses 06/15/2017 None Full Exam - General 1994 Ears/Nose/Throat oral cavity/pharynx/larynx Overall: oral mucosa clear 06/15/2017 None Full Exam - General 1994 Ears/Nose/Throat oral cavity/pharynx/larynx Overall: oropharyngeal mucosa clear 06/15/2017 None Full Exam - General 1994 Ears/Nose/Throat oral cavity/pharynx/larynx Overall: no masses 06/15/2017 None Full Exam - General 1994 Respiratory auscultation Overall: breath sounds clear bilaterally 06/15/2017 None Full Exam - General 1994 Respiratory respiratory effort/rhythm Overall: no retractions 06/15/2017 None Full Exam - General 1994 Respiratory respiratory effort/rhythm Overall: normal rate 06/15/2017 None Full Exam - General 1994 Cardiovascular extremities Overall: no clubbing 06/15/2017 None Full Exam - General 1994 Cardiovascular extremities Edema present: pitting 06/15/2017 None Full Exam - General 1994 Cardiovascular extremities Edema present: severity 1+ - 4+: 4+ 06/15/2017 None Full Exam - General 1994 Cardiovascular extremities Edema present: bilateral 06/15/2017 None Full Exam - General 1994 Cardiovascular extremities Edema present: to knees 06/15/2017 None Full Exam - General 1994 Cardiovascular auscultation of heart Rate: regular rate 06/15/2017 None Full Exam - General 1994 Cardiovascular auscultation of heart Rhythm: irregular rhythm 06/15/2017 None Full Exam - General 1994 Abdomen abdominal exam Overall: no tenderness 06/15/2017 None Full Exam - General 1994 Abdomen abdominal exam Overall: normal bowel sounds 06/15/2017 None Full Exam - General 1994 Musculoskeletal lower extremity Inspection - knee: swelling 06/15/2017 None Full Exam - General 1994 Musculoskeletal lower extremity Inspection - lower leg: swelling 06/15/2017 None Full Exam - General 1994 Musculoskeletal gait and station Overall: normal gait 06/15/2017 None Full Exam - General 1994 Musculoskeletal gait and station Overall: normal station 06/15/2017 None Full Exam - General 1994 Psychiatric orientation/consciousness Overall: oriented to person, place and time 06/15/2017 None Full Exam - General 1994 Psychiatric mood and affect Overall: normal mood and affect 06/15/2017 None Full Exam - General 1994 Psychiatric appearance Overall: well-groomed, good eye contact 06/15/2017 None Full Exam - General 1994 Musculoskeletal head and neck Cervical Spine: tender 06/15/2017 along left side of neck a t muscles Full Exam - Dermatology Constitutional general appearance Overall: well nourished 04/01/2017 None Full Exam - Dermatology Constitutional general appearance Overall: well developed 04/01/2017 None Full Exam - Dermatology Constitutional general appearance Overall: in no acute distress 04/01/2017 None Full Exam - Dermatology Eyes conjunctiva/eyelids Overall: clear conjunctiva bilaterally 04/01/2017 None Full Exam - Dermatology Eyes conjunctiva/eyelids Overall: normal eyelids 04/01/2017 None Full Exam - Dermatology Ears/Nose/Throat lips/teeth/gingiva Overall: benign lips 04/01/2017 None Full Exam - Dermatology Ears/Nose/Throat oropharynx Overall: clear oral mucosa 04/01/2017 None Full Exam - Dermatology Respiratory respiratory effort/rhythm Overall: no retractions 04/01/2017 None Full Exam - Dermatology Respiratory respiratory effort/rhythm Overall: normal rate 04/01/2017 None Full Exam - Dermatology Musculoskeletal head and neck Overall: head atraumatic 04/01/2017 None Full Exam - Dermatology Musculoskeletal gait and station Overall: normal gait 04/01/2017 None Full Exam - Dermatology Musculoskeletal gait and station Overall: normal station 04/01/2017 None Full Exam - Dermatology Integument insp & palp - left upper extremity Location: on the fingers 04/01/2017 index finger - laceration - approximately 2 cm long and 1 mm deep Full Exam - Dermatology Integument insp & palp - left upper extremity Appearance: tender 04/01/2017 None Full Exam - Dermatology Psychiatric orientation Overall: oriented to person, place and time 04/01/2017 None Full Exam - Dermatology Psychiatric mood and affect Overall: normal mood and affect 04/01/2017 None Full Exam - General 1994 Constitutional general appearance Overall: well developed 03/16/2017 None Full Exam - General 1994 Constitutional general appearance Overall: in no acute distress 03/16/2017 None Full Exam - General 1994 Constitutional general appearance Overall: well nourished 03/16/2017 None Full Exam - General 1994 Eyes pupils and irises Overall: pupils equal, round, reactive to light and accomodation 03/16/2017 None Full Exam - General 1994 Ears/Nose/Throat otoscopic exam Overall: external auditory canals clear 03/16/2017 None Full Exam - General 1994 Ears/Nose/Throat otoscopic exam Overall: tympanic membranes clear 03/16/2017 None Full Exam - General 1994 Ears/Nose/Throat lips/teeth/gingiva Overall: benign lips 03/16/2017 None Full Exam - General 1994 Ears/Nose/Throat lips/teeth/gingiva Overall: normal dentition 03/16/2017 None Full Exam - General 1994 Ears/Nose/Throat lips/teeth/gingiva Overall: benign gingiva 03/16/2017 None Full Exam - General 1994 Ears/Nose/Throat lips/teeth/gingiva Overall: no masses 03/16/2017 None Full Exam - General 1994 Ears/Nose/Throat oral cavity/pharynx/larynx Overall: oral mucosa clear 03/16/2017 None Full Exam - General 1994 Ears/Nose/Throat oral cavity/pharynx/larynx Overall: oropharyngeal mucosa clear 03/16/2017 None Full Exam - General 1994 Ears/Nose/Throat oral cavity/pharynx/larynx Overall: no masses 03/16/2017 None Full Exam - General 1994 Respiratory auscultation Overall: breath sounds clear bilaterally 03/16/2017 None Full Exam - General 1994 Respiratory respiratory effort/rhythm Overall: no retractions 03/16/2017 None Full Exam - General 1994 Respiratory respiratory effort/rhythm Overall: normal rate 03/16/2017 None Full Exam - General 1994 Cardiovascular extremities Overall: no clubbing 03/16/2017 None Full Exam - General 1994 Cardiovascular extremities Edema present: pitting 03/16/2017 None Full Exam - General 1994 Cardiovascular extremities Edema present: severity 1+ - 4+: 4+ 03/16/2017 None Full Exam - General 1994 Cardiovascular extremities Edema present: bilateral 03/16/2017 None Full Exam - General 1994 Cardiovascular extremities Edema present: to leg 03/16/2017 None Full Exam - General 1994 Cardiovascular extremities Edema present: to knees 03/16/2017 None Full Exam - General 1994 Cardiovascular extremities Edema present: to thighs 03/16/2017 None Full Exam - General 1994 Cardiovascular auscultation of heart Rate: regular rate 03/16/2017 None Full Exam - General 1994 Cardiovascular auscultation of heart Rhythm: irregular rhythm 03/16/2017 None Full Exam - General 1994 Abdomen abdominal exam Overall: no tenderness 03/16/2017 None Full Exam - General 1994 Abdomen abdominal exam Overall: normal bowel sounds 03/16/2017 None Full Exam - General 1994 Musculoskeletal lower extremity Inspection - knee: swelling 03/16/2017 None Full Exam - General 1994 Musculoskeletal lower extremity Inspection - lower leg: swelling 03/16/2017 None Full Exam - General 1994 Musculoskeletal gait and station Overall: normal gait 03/16/2017 None Full Exam - General 1994 Musculoskeletal gait and station Overall: normal station 03/16/2017 None Full Exam - General 1994 Integument inspection of skin Pigmentation: erythematous 03/16/2017 lesion on back of leg Full Exam - General 1994 Psychiatric orientation/consciousness Overall: oriented to person, place and time 03/16/2017 None Full Exam - General 1994 Psychiatric mood and affect Overall: normal mood and affect 03/16/2017 None Full Exam - General 1994 Psychiatric appearance Overall: well-groomed, good eye contact 03/16/2017 None Full Exam - General 1994 Constitutional general appearance Overall: well developed 02/09/2017 None Full Exam - General 1994 Constitutional general appearance Overall: in no acute distress 02/09/2017 None Full Exam - General 1994 Constitutional general appearance Overall: well nourished 02/09/2017 None Full Exam - General 1994 Eyes pupils and irises Overall: pupils equal, round, reactive to light and accomodation 02/09/2017 None Full Exam - General 1994 Ears/Nose/Throat otoscopic exam Overall: external auditory canals clear 02/09/2017 None Full Exam - General 1994 Ears/Nose/Throat otoscopic exam Overall: tympanic membranes clear 02/09/2017 None Full Exam - General 1994 Ears/Nose/Throat lips/teeth/gingiva Overall: benign lips 02/09/2017 None Full Exam - General 1994 Ears/Nose/Throat lips/teeth/gingiva Overall: normal dentition 02/09/2017 None Full Exam - General 1994 Ears/Nose/Throat lips/teeth/gingiva Overall: benign gingiva 02/09/2017 None Full Exam - General 1994 Ears/Nose/Throat lips/teeth/gingiva Overall: no masses 02/09/2017 None Full Exam - General 1994 Ears/Nose/Throat oral cavity/pharynx/larynx Overall: oral mucosa clear 02/09/2017 None Full Exam - General 1994 Ears/Nose/Throat oral cavity/pharynx/larynx Overall: oropharyngeal mucosa clear 02/09/2017 None Full Exam - General 1994 Ears/Nose/Throat oral cavity/pharynx/larynx Overall: no masses 02/09/2017 None Full Exam - General 1994 Respiratory auscultation Overall: breath sounds clear bilaterally 02/09/2017 None Full Exam - General 1994 Respiratory respiratory effort/rhythm Overall: no retractions 02/09/2017 None Full Exam - General 1994 Respiratory respiratory effort/rhythm Overall: normal rate 02/09/2017 None Full Exam - General 1994 Cardiovascular extremities Overall: no clubbing 02/09/2017 None Full Exam - General 1994 Cardiovascular extremities Edema present: pitting 02/09/2017 None Full Exam - General 1994 Cardiovascular extremities Edema present: severity 1+ - 4+: 4+ 02/09/2017 None Full Exam - General 1994 Cardiovascular extremities Edema present: bilateral 02/09/2017 None Full Exam - General 1994 Cardiovascular extremities Edema present: to leg 02/09/2017 None Full Exam - General 1994 Cardiovascular extremities Edema present: to knees 02/09/2017 None Full Exam - General 1994 Cardiovascular extremities Edema present: to thighs 02/09/2017 None Full Exam - General 1994 Cardiovascular auscultation of heart Rate: regular rate 02/09/2017 None Full Exam - General 1994 Cardiovascular auscultation of heart Rhythm: irregular rhythm 02/09/2017 None Full Exam - General 1994 Musculoskeletal lower extremity Inspection - knee: swelling 02/09/2017 None Full Exam - General 1994 Musculoskeletal lower extremity Inspection - lower leg: swelling 02/09/2017 None Full Exam - General 1994 Musculoskeletal gait and station Overall: normal gait 02/09/2017 None Full Exam - General 1994 Musculoskeletal gait and station Overall: normal station 02/09/2017 None Full Exam - General 1994 Integument inspection of skin Pigmentation: erythematous 02/09/2017 lesion on back of leg Full Exam - General 1994 Psychiatric orientation/consciousness Overall: oriented to person, place and time 02/09/2017 None Full Exam - General 1994 Psychiatric mood and affect Overall: normal mood and affect 02/09/2017 None Full Exam - General 1994 Psychiatric appearance Overall: well-groomed, good eye contact 02/09/2017 None Full Exam - General 1994 Abdomen abdominal exam Overall: no tenderness 02/09/2017 None Full Exam - General 1994 Abdomen abdominal exam Overall: normal bowel sounds 02/09/2017 None Full Exam - General 1994 Constitutional general appearance Overall: well developed 10/13/2016 None Full Exam - General 1994 Constitutional general appearance Overall: in no acute distress 10/13/2016 None Full Exam - General 1994 Constitutional general appearance Overall: well nourished 10/13/2016 None Full Exam - General 1994 Eyes pupils and irises Overall: pupils equal, round, reactive to light and accomodation 10/13/2016 None Full Exam - General 1994 Ears/Nose/Throat otoscopic exam Overall: external auditory canals clear 10/13/2016 None Full Exam - General 1994 Ears/Nose/Throat otoscopic exam Overall: tympanic membranes clear 10/13/2016 None Full Exam - General 1994 Ears/Nose/Throat lips/teeth/gingiva Overall: benign lips 10/13/2016 None Full Exam - General 1994 Ears/Nose/Throat lips/teeth/gingiva Overall: normal dentition 10/13/2016 None Full Exam - General 1994 Ears/Nose/Throat lips/teeth/gingiva Overall: benign gingiva 10/13/2016 None Full Exam - General 1994 Ears/Nose/Throat lips/teeth/gingiva Overall: no masses 10/13/2016 None Full Exam - General 1994 Ears/Nose/Throat oral cavity/pharynx/larynx Overall: oral mucosa clear 10/13/2016 None Full Exam - General 1994 Ears/Nose/Throat oral cavity/pharynx/larynx Overall: oropharyngeal mucosa clear 10/13/2016 None Full Exam - General 1994 Ears/Nose/Throat oral cavity/pharynx/larynx Overall: no masses 10/13/2016 None Full Exam - General 1994 Respiratory auscultation Overall: breath sounds clear bilaterally 10/13/2016 None Full Exam - General 1994 Respiratory respiratory effort/rhythm Overall: no retractions 10/13/2016 None Full Exam - General 1994 Respiratory respiratory effort/rhythm Overall: normal rate 10/13/2016 None Full Exam - General 1994 Cardiovascular extremities Overall: no clubbing 10/13/2016 None Full Exam - General 1994 Cardiovascular extremities Edema present: pitting 10/13/2016 None Full Exam - General 1994 Cardiovascular extremities Edema present: severity 1+ - 4+: 4+ 10/13/2016 None Full Exam - General 1994 Cardiovascular extremities Edema present: bilateral 10/13/2016 None Full Exam - General 1994 Cardiovascular extremities Edema present: to leg 10/13/2016 None Full Exam - General 1994 Cardiovascular extremities Edema present: to knees 10/13/2016 None Full Exam - General 1994 Cardiovascular extremities Edema present: to thighs 10/13/2016 None Full Exam - General 1994 Cardiovascular auscultation of heart Rate: regular rate 10/13/2016 None Full Exam - General 1994 Cardiovascular auscultation of heart Rhythm: irregular rhythm 10/13/2016 None Full Exam - General 1994 Musculoskeletal lower extremity Inspection - knee: swelling 10/13/2016 None Full Exam - General 1994 Musculoskeletal lower extremity Inspection - lower leg: swelling 10/13/2016 None Full Exam - General 1994 Musculoskeletal gait and station Overall: normal gait 10/13/2016 None Full Exam - General 1994 Musculoskeletal gait and station Overall: normal station 10/13/2016 None Full Exam - General 1994 Psychiatric orientation/consciousness Overall: oriented to person, place and time 10/13/2016 None Full Exam - General 1994 Psychiatric mood and affect Overall: normal mood and affect 10/13/2016 None Full Exam - General 1994 Psychiatric appearance Overall: well-groomed, good eye contact 10/13/2016 None Full Exam - General 1995 Integument inspection of skin Pigmentation: erythematous 10/13/2016 lesion on back of leg Full Exam - ENT Constitutional general appearance Overall: well nourished 07/31/2016 None Full Exam - ENT Constitutional general appearance Overall: well developed 07/31/2016 None Full Exam - ENT Constitutional general appearance Overall: in no acute distress 07/31/2016 None Full Exam - ENT Ears/Nose/Throat otoscopic exam Overall: external auditory canals normal 07/31/2016 None Full Exam - ENT Ears/Nose/Throat otoscopic exam Left tympanic membrane: air-fluid le miriam 07/31/2016 None Full Exam - ENT Ears/Nose/Throat otoscopic exam Right tympanic membrane: air-fluid level 07/31/2016 None Full Exam - ENT Ears/Nose/Throat nasal mucosa, septum, turbinates Drainage: clear 07/31/2016 None Full Exam - ENT Ears/Nose/Throat nasal mucosa, septum, turbinates Drainage: yellow 07/31/2016 None Full Exam - ENT Ears/Nose/Throat lips/teeth/gingiva Overall: benign lips 07/31/2016 None Full Exam - ENT Ears/Nose/Throat oropharynx Posterior Pharynx: clear post nasal drainage 07/31/2016 None Full Exam - ENT Face and Head palpation Left maxillary sinus: tender 07/31/2016 None Full Exam - ENT Face and Head palpation Right maxillary sinus: tender 07/31/2016 None Full Exam - ENT Respiratory inspection Overall: no retractions 07/31/2016 None Full Exam - ENT Respiratory inspection Overall: normal rate 08/2016 None Full Exam - ENT Respiratory auscultation Overall: breath sounds clear bilater ally 07/31/2016 None Full Exam - ENT Lymphatic palpation of lymph nodes Overall: anterior cervical chain benign 07/31/2016 None Full Exam - ENT Lymphatic palpation of lymph nodes Overall: posterior cervical chain benign 07/31/2016 None Full Exam - ENT Neurologic mood and affect Overall: normal mood 07/31/2016 None Full Exam - ENT Neurologic mood and affect Overall: normal affect 07/31/2016 None Full Exam - ENT Neurologic orientation Overall: oriented to person, place a nd time 07/31/2016 None Full Exam - ENT Respiratory auscultation Right lower lung field: expiratory w heezes 07/31/2016 faint Full Exam - ENT Cardiovascular auscultation of heart Rhythm: irregular rhythm 07/31/2016 None Full Exam - General 1995 Constitutional general appearance Overall: well developed 05/01/2016 None Full Exam - General 1994 Constitutional general appearance Overall: in no acute distress 05/01/2016 None Full Exam - General 1994 Constitutional general appearance Overall: well nourished 05/01/2016 None Full Exam - General 1994 Eyes conjunctiva/eyelids Overall: conjunctiva clear 05/01/2016 None Full Exam - General 1994 Eyes conjunctiva/eyelids Overall: eyelids normal 05/01/2016 None Full Exam - General 1994 Eyes pupils and irises Overall: pupils equal, round, reactive to light and accomodation 05/01/2016 None Full Exam - General 1994 Ears/Nose/Throat otoscopic exam Overall: external auditory canals clear 05/01/2016 None Full Exam - General 1994 Ears/Nose/Throat otoscopic exam Overall: tympanic membranes clear 05/01/2016 None Full Exam - General 1994 Ears/Nose/Throat lips/teeth/gingiva Overall: benign lips 05/01/2016 None Full Exam - General 1994 Ears/Nose/Throat oral cavity/pharynx/larynx Overall: oral mucosa clear 05/01/2016 None Full Exam - General 1994 Ears/Nose/Throat oral cavity/pharynx/larynx Posterior Pharynx: clear post nasal drainage 05/01/2016 None Full Exam - General 1994 Respiratory auscultation Overall: breath sounds clear bilaterally 05/01/2016 None Full Exam - General 1994 Respiratory respiratory effort/rhythm Overall: no retractions 05/01/2016 None Full Exam - General 1994 Respiratory respiratory effort/rhythm Overall: normal rate 05/01/2016 None Full Exam - General 1994 Cardiovascular auscultation of heart Overall: regular rate 05/01/2016 None Full Exam - General 1994 Cardiovascular auscultation of heart Overall: normal heart sounds 05/01/2016 None Full Exam - General 1994 Lymphatic neck nodes Overall: anterior cervical chain benign 05/01/2016 None Full Exam - General 1994 Lymphatic neck nodes Overall: posterior cervical chain benign 05/01/2016 None Full Exam - General 1994 Musculoskeletal head and neck Overall: head atraumatic 05/01/2016 None Full Exam - General 1994 Integument inspection of skin Overall: no rash, lesions 05/01/2016 None Full Exam - General 1994 Neurologic cranial nerves Overall: crainial nerves 2 - 12 grossly intact 05/01/2016 None Full Exam - General 1994 Psychiatric orientation/consciousness Overall: oriented to person, place and time 05/01/2016 None Full Exam - General 1994 Psychiatric mood and affect Overall: normal mood and affect 05/01/2016 None Full Exam - General 1994 Psychiatric appearance Overall: well-groomed, good eye contact 05/01/2016 None Full Exam - General 1994 Constitutional general appearance Overall: well developed 04/06/2016 None Full Exam - General 1994 Constitutional general appearance Overall: in no acute distress 04/06/2016 None Full Exam - General 1994 Constitutional general appearance Overall: well nourished 04/06/2016 None Full Exam - General 1994 Eyes conjunctiva/eyelids Overall: conjunctiva clear 04/06/2016 None Full Exam - General 1994 Ears/Nose/Throat lips/teeth/gingiva Overall: benign lips 04/06/2016 None Full Exam - General 1994 Respiratory respiratory effort/rhythm Overall: no retractions 04/06/2016 None Full Exam - General 1994 Respiratory respiratory effort/rhythm Overall: normal rate 04/06/2016 None Full Exam - General 1994 Cardiovascular extremities Overall: no clubbing 04/06/2016 None Full Exam - General 1994 Cardiovascular extremities Edema present: pitting 04/06/2016 None Full Exam - General 1994 Cardiovascular extremities Edema present: severity 1+ - 4+: 2+ 04/06/2016 None Full Exam - General 1994 Cardiovascular extremities Edema present: bilateral 04/06/2016 None Full Exam - General 1994 Cardiovascular extremities Edema present: to leg 04/06/2016 None Full Exam - General 1994 Integument inspection of skin Dermatitis: erythema 04/06/2016 warmth, edema Full Exam - General 1994 Integument inspection of skin Location: left foot 04/06/2016 None Full Exam - General 1994 Neurologic cranial nerves Overall: crainial nerves 2 - 12 grossly intact 04/06/2016 None Full Exam - General 1994 Psychiatric orientation/consciousness Overall: oriented to person, place and time 04/06/2016 None Full Exam - General 1994 Psychiatric mood and affect Overall: normal mood and affect 04/06/2016 None Full Exam - General 1994 Psychiatric appearance Overall: well-groomed, good eye contact 04/06/2016 None Full Exam - General 1994 Musculoskeletal head and neck Overall: head atraumatic 04/06/2016 None Full Exam - General 1994 Constitutional general appearance Overall: well developed 03/03/2016 None Full Exam - General 1994 Constitutional general appearance Overall: in no acute distress 03/03/2016 None Full Exam - General 1994 Constitutional general appearance Overall: well nourished 03/03/2016 None Full Exam - General 1994 Ears/Nose/Throat lips/teeth/gingiva Overall: benign lips 03/03/2016 None Full Exam - General 1994 Ears/Nose/Throat oral cavity/pharynx/larynx Overall: oral mucosa clear 03/03/2016 None Full Exam - General 1994 Respiratory auscultation Overall: breath sounds clear bilaterally 03/03/2016 None Full Exam - General 1994 Respiratory respiratory effort/rhythm Overall: no retractions 03/03/2016 None Full Exam - General 1994 Respiratory respiratory effort/rhythm Overall: normal rate 03/03/2016 None Full Exam - General 1994 Cardiovascular extremities Overall: no clubbing 03/03/2016 None Full Exam - General 1994 Cardiovascular extremities Edema present: pitting 03/03/2016 None Full Exam - General 1994 Cardiovascular extremities Edema present: bilateral 03/03/2016 None Full Exam - General 1994 Cardiovascular extremities Edema present: to leg 03/03/2016 None Full Exam - General 1994 Cardiovascular auscultation of heart Rate: regular rate 03/03/2016 None Full Exam - General 1994 Cardiovascular auscultation of heart Rhythm: irregular rhythm 03/03/2016 None Full Exam - General 1994 Musculoskeletal gait and station Overall: normal gait 03/03/2016 None Full Exam - General 1994 Musculoskeletal gait and station Overall: normal station 03/03/2016 None Full Exam - General 1994 Psychiatric orientation/consciousness Overall: oriented to person, place and time 03/03/2016 None Full Exam - General 1994 Psychiatric mood and affect Overall: normal mood and affect 03/03/2016 None Full Exam - General 1994 Psychiatric appearance Overall: well-groomed, good eye contact 03/03/2016 None Full Exam - General 1994 Eyes conjunctiva/eyelids Overall: conjunctiva clear 03/03/2016 None Full Exam - General 1994 Cardiovascular extremities Edema present: severity 1+ - 4+: 2+ 03/03/2016 None Full Exam - General 1994 Integument inspection of skin Location: left foot 03/03/2016 None Full Exam - General 1994 Integument inspection of skin Dermatitis: erythema 03/03/2016 warmth, edema Full Exam - General 1994 Neurologic cranial nerves Overall: crainial nerves 2 - 12 grossly intact 03/03/2016 None Full Exam - General 1994 Psychiatric speech Overall: normal quality, no aphasia 03/03/2016 None Full Exam - General 1994 Psychiatric speech Overall: normal quality, quantity, r ate 03/03/2016 None Full Exam - General 1994 Constitutional general appearance Overall: well developed 02/07/2016 None Full Exam - General 1994 Constitutional general appearance Overall: in no acute distress 02/07/2016 None Full Exam - General 1994 Constitutional general appearance Overall: well nourished 02/07/2016 None Full Exam - General 1994 Cardiovascular extremities Overall: no clubbing 02/07/2016 None Full Exam - General 1994 Cardiovascular extremities Edema present: pitting 02/07/2016 None Full Exam - General 1994 Cardiovascular extremities Edema present: severity 1+ - 4+: 4+ 02/07/2016 None Full Exam - General 1994 Cardiovascular extremities Edema present: bilateral 02/07/2016 None Full Exam - General 1994 Cardiovascular extremities Edema present: to leg 02/07/2016 None Full Exam - General 1994 Cardiovascular extremities Edema present: to knees 02/07/2016 None Full Exam - General 1994 Cardiovascular extremities Edema present: to thighs 02/07/2016 None Full Exam - General 1994 Musculoskeletal lower extremity Inspection - knee: swelling 02/07/2016 None Full Exam - General 1994 Musculoskeletal lower extremity Inspection - lower leg: swelling 02/07/2016 None Full Exam - General 1994 Integument inspection of skin Location: diffuse 02/07/2016 None Full Exam - General 1994 Integument inspection of skin Pigmentation: ecchymosis 02/07/2016 None Full Exam - General 1994 Psychiatric orientation/consciousness Overall: oriented to person, place and time 02/07/2016 None Full Exam - General 1994 Psychiatric mood and affect Overall: normal mood and affect 02/07/2016 None Full Exam - General 1994 Psychiatric appearance Overall: well-groomed, good eye contact 02/07/2016 None Full Exam - General 1994 Eyes pupils and irises Overall: pupils equal, round, reactive to light and accomodation 02/07/2016 None Full Exam - General 1994 Ears/Nose/Throat otoscopic exam Overall: external auditory canals clear 02/07/2016 None Full Exam - General 1994 Ears/Nose/Throat otoscopic exam Overall: tympanic membranes clear 02/07/2016 None Full Exam - General 1994 Ears/Nose/Throat lips/teeth/gingiva Overall: benign lips 02/07/2016 None Full Exam - General 1994 Ears/Nose/Throat lips/teeth/gingiva Overall: normal dentition 02/07/2016 None Full Exam - General 1994 Ears/Nose/Throat lips/teeth/gingiva Overall: benign gingiva 02/07/2016 None Full Exam - General 1994 Ears/Nose/Throat lips/teeth/gingiva Overall: no masses 02/07/2016 None Full Exam - General 1994 Ears/Nose/Throat oral cavity/pharynx/larynx Overall: oral mucosa clear 02/07/2016 None Full Exam - General 1994 Ears/Nose/Throat oral cavity/pharynx/larynx Overall: oropharyngeal mucosa clear 02/07/2016 None Full Exam - General 1994 Ears/Nose/Throat oral cavity/pharynx/larynx Overall: no masses 02/07/2016 None Full Exam - General 1994 Respiratory auscultation Overall: breath sounds clear bilaterally 02/07/2016 None Full Exam - General 1994 Respiratory respiratory effort/rhythm Overall: no retractions 02/07/2016 None Full Exam - General 1994 Respiratory respiratory effort/rhythm Overall: normal rate 02/07/2016 None Full Exam - General 1994 Musculoskeletal gait and station Overall: normal gait 02/07/2016 None Full Exam - General 1994 Musculoskeletal gait and station Overall: normal station 02/07/2016 None Full Exam - General 1994 Integument inspection of skin Overall: no rash, lesions 02/07/2016 None Full Exam - General 1994 Cardiovascular auscultation of heart Rate: regular rate 02/07/2016 None Full Exam - General 1994 Cardiovascular auscultation of heart Rhythm: irregular rhythm 02/07/2016 None Full Exam - General 1994 Constitutional general appearance Overall: well nourished 12/13/2015 None Full Exam - General 1994 Constitutional general appearance Overall: well developed 12/13/2015 None Full Exam - General 1994 Constitutional general appearance Overall: in no acute distress 12/13/2015 None Full Exam - General 1994 Integument inspection of skin Location: diffuse 12/13/2015 None Full Exam - General 1994 Integument inspection of skin Pigmentation: ecchymosis 12/13/2015 None Full Exam - General 1994 Musculoskeletal gait and station Gait: asymmetric 12/13/2015 not bearing full weight o n right leg Full Exam - General 1994 Psychiatric orientation/consciousness Overall: oriented to person, place and time 12/13/2015 None Full Exam - General 1994 Psychiatric mood and affect Overall: normal mood and affect 12/13/2015 None Full Exam - General 1994 Psychiatric appearance Overall: well-groomed, good eye contact 12/13/2015 None Full Exam - General 1994 Musculoskeletal lower extremity Palpation - thigh: tenderness 12/13/2015 lateral aspect from hip to knee Full Exam - General 1994 Musculoskeletal lower extremity Inspection - knee: swelling 12/13/2015 None Full Exam - General 1994 Musculoskeletal lower extremity Inspection - lower leg: swelling 12/13/2015 None Full Exam - General 1994 Cardiovascular extremities Overall: no clubbing 12/13/2015 None Full Exam - General 1994 Cardiovascular extremities Edema present: severity 1+ - 4+: 4+ 12/13/2015 None Full Exam - General 1994 Cardiovascular extremities Edema present: pitting 12/13/2015 None Full Exam - General 1994 Cardiovascular extremities Edema present: bilateral 12/13/2015 None Full Exam - General 1994 Cardiovascular extremities Edema present: to leg 12/13/2015 None Full Exam - General 1994 Cardiovascular extremities Edema present: to knees 12/13/2015 None Full Exam - General 1994 Cardiovascular extremities Edema present: to thighs 12/13/2015 None Full Exam - General 1994 Constitutional general appearance Overall: well nourished 12/03/2015 None Full Exam - General 1994 Constitutional general appearance Overall: well developed 12/03/2015 None Full Exam - General 1994 Constitutional general appearance Overall: in no acute distress 12/03/2015 None Full Exam - General 1994 Ears/Nose/Throat oral cavity/pharynx/larynx Overall: oropharyngeal mucosa clear 12/03/2015 None Full Exam - General 1994 Ears/Nose/Throat oral cavity/pharynx/larynx Overall: no masses 12/03/2015 None Full Exam - General 1994 Ears/Nose/Throat oral cavity/pharynx/larynx Overall: oral mucosa clear 12/03/2015 None Full Exam - General 1994 Ears/Nose/Throat lips/teeth/gingiva Overall: benign gingiva 12/03/2015 None Full Exam - General 1994 Ears/Nose/Throat lips/teeth/gingiva Overall: no masses 12/03/2015 None Full Exam - General 1994 Ears/Nose/Throat lips/teeth/gingiva Overall: normal dentition 12/03/2015 None Full Exam - General 1994 Ears/Nose/Throat lips/teeth/gingiva Overall: benign lips 12/03/2015 None Full Exam - General 1994 Ears/Nose/Throat otoscopic exam Overall: tympanic membranes clear 12/03/2015 None Full Exam - General 1994 Ears/Nose/Throat otoscopic exam Overall: external auditory canals clear 12/03/2015 None Full Exam - General 1994 Eyes pupils and irises Overall: pupils equal, round, reactive to light and accomodation 12/03/2015 None Full Exam - General 1994 Respiratory respiratory effort/rhythm Overall: normal rate 12/03/2015 None Full Exam - General 1994 Respiratory respiratory effort/rhythm Overall: no retractions 12/03/2015 None Full Exam - General 1994 Respiratory auscultation Overall: breath sounds clear bilaterally 12/03/2015 None Full Exam - General 1994 Cardiovascular auscultation of heart Overall: regular rate 12/03/2015 None Full Exam - General 1994 Cardiovascular auscultation of heart Overall: normal heart sounds 12/03/2015 None Full Exam - General 1994 Cardiovascular auscultation of heart Overall: no murmurs 12/03/2015 None Full Exam - General 1994 Cardiovascular extremities Edema present: bilateral 12/03/2015 None Full Exam - General 1994 Cardiovascular extremities Edema present: to leg 12/03/2015 None Full Exam - General 1994 Musculoskeletal gait and station Overall: normal station 12/03/2015 None Full Exam - General 1994 Musculoskeletal gait and station Overall: normal gait 12/03/2015 None Full Exam - General 1994 Integument inspection of skin Overall: no rash, lesions 12/03/2015 None Full Exam - General 1994 Integument inspection of skin Location: diffuse 12/03/2015 generalized Full Exam - General 1994 Integument inspection of skin Pigmentation: ecchymosis 12/03/2015 healing Full Exam - General 1994 Psychiatric orientation/consciousness Overall: oriented to person, place and time 12/03/2015 None Full Exam - General 1994 Psychiatric mood and affect Overall: normal mood and affect 12/03/2015 None Full Exam - General 1994 Psychiatric appearance Overall: well-groomed, good eye contact 12/03/2015 None Full Exam - General 1994 Cardiovascular extremities Edema present: severity 1+ - 4+: 3+ 12/03/2015 None Full Exam - General 1994 Constitutional general appearance Overall: well developed 11/20/2015 None Full Exam - General 1994 Constitutional general appearance Overall: in no acute distress 11/20/2015 None Full Exam - General 1994 Constitutional general appearance Overall: well nourished 11/20/2015 None Full Exam - General 1994 Eyes pupils and irises Overall: pupils equal, round, reactive to light and accomodation 11/20/2015 None Full Exam - General 1994 Ears/Nose/Throat otoscopic exam Overall: external auditory canals clear 11/20/2015 None Full Exam - General 1994 Ears/Nose/Throat otoscopic exam Overall: tympanic membranes clear 11/20/2015 None Full Exam - General 1994 Ears/Nose/Throat lips/teeth/gingiva Overall: benign lips 11/20/2015 None Full Exam - General 1994 Ears/Nose/Throat lips/teeth/gingiva Overall: normal dentition 11/20/2015 None Full Exam - General 1994 Ears/Nose/Throat lips/teeth/gingiva Overall: benign gingiva 11/20/2015 None Full Exam - General 1994 Ears/Nose/Throat lips/teeth/gingiva Overall: no masses 11/20/2015 None Full Exam - General 1994 Ears/Nose/Throat oral cavity/pharynx/larynx Overall: oral mucosa clear 11/20/2015 None Full Exam - General 1994 Ears/Nose/Throat oral cavity/pharynx/larynx Overall: oropharyngeal mucosa clear 11/20/2015 None Full Exam - General 1994 Ears/Nose/Throat oral cavity/pharynx/larynx Overall: no masses 11/20/2015 None Full Exam - General 1994 Respiratory auscultation Overall: breath sounds clear bilaterally 11/20/2015 None Full Exam - General 1994 Respiratory respiratory effort/rhythm Overall: no retractions 11/20/2015 None Full Exam - General 1994 Respiratory respiratory effort/rhythm Overall: normal rate 11/20/2015 None Full Exam - General 1994 Cardiovascular extremities Edema present: severity 1+ - 4+: 3+ 11/20/2015 None Full Exam - General 1994 Cardiovascular extremities Edema present: bilateral 11/20/2015 None Full Exam - General 1994 Cardiovascular extremities Edema present: to leg 11/20/2015 None Full Exam - General 1994 Cardiovascular auscultation of heart Overall: regular rate 11/20/2015 None Full Exam - General 1994 Cardiovascular auscultation of heart Overall: normal heart sounds 11/20/2015 None Full Exam - General 1994 Cardiovascular auscultation of heart Overall: no murmurs 11/20/2015 None Full Exam - General 1994 Musculoskeletal gait and station Overall: normal gait 11/20/2015 None Full Exam - General 1994 Musculoskeletal gait and station Overall: normal station 11/20/2015 None Full Exam - General 1994 Integument inspection of skin Location: diffuse 11/20/2015 generalized Full Exam - General 1994 Integument inspection of skin Pigmentation: ecchymosis 11/20/2015 on arms bilaterally, lowe r legs bilaterallky - healing skin lesions scattered on arms and legs Full Exam - General 1994 Psychiatric orientation/consciousness Overall: oriented to person, place and time 11/20/2015 None Full Exam - General 1994 Psychiatric mood and affect Overall: normal mood and affect 11/20/2015 None Full Exam - General 1994 Psychiatric appearance Overall: well-groomed, good eye contact 11/20/2015 None Full Exam - General 1994 Constitutional general appearance Development: well developed 09/17/2015 None Full Exam - General 1994 Constitutional general appearance Development: appears stated age 0309/17/2015 None Full Exam - General 1994 Constitutional general appearance Hygiene/Attention to Grooming: good hygiene 09/17/2015 None Full Exam - General 1994 Eyes conjunctiva/eyelids Overall: conjunctiva clear 09/17/2015 None Full Exam - General 1994 Eyes conjunctiva/eyelids Overall: cornea clear 09/17/2015 None Full Exam - General 1994 Eyes conjunctiva/eyelids Overall: eyelids normal 09/17/2015 None Full Exam - General 1994 Eyes pupils and irises Overall: pupils equal, round, reactive to light and accomodation 09/17/2015 None Full Exam - General 1994 Ears/Nose/Throat lips/teeth/gingiva Overall: benign lips 09/17/2015 None Full Exam - General 1994 Ears/Nose/Throat lips/teeth/gingiva Overall: normal dentition 09/17/2015 None Full Exam - General 1994 Ears/Nose/Throat oral cavity/pharynx/larynx Overall: oral mucosa clear 09/17/2015 None Full Exam - General 1994 Respiratory auscultation Overall: breath sounds clear bilaterally 09/17/2015 None Full Exam - General 1994 Respiratory respiratory effort/rhythm Overall: no retractions 09/17/2015 None Full Exam - General 1994 Respiratory respiratory effort/rhythm Overall: normal rate 09/17/2015 None Full Exam - General 1994 Cardiovascular extremities Edema present: pitting 09/17/2015 None Full Exam - General 1994 Cardiovascular extremities Edema present: severity 1+ - 4+: 2-3+ 09/17/2015 None Full Exam - General 1994 Cardiovascular extremities Edema present: to knees 09/17/2015 None Full Exam - General 1994 Abdomen abdominal exam Overall: no tenderness 09/17/2015 None Full Exam - General 1994 Abdomen abdominal exam Overall: normal bowel sounds 09/17/2015 None Full Exam - General 1994 Lymphatic neck nodes Overall: anterior cervical chain benign 09/17/2015 None Full Exam - General 1994 Lymphatic neck nodes Overall: posterior cervical chain benign 09/17/2015 None Full Exam - General 1994 Musculoskeletal head and neck Overall: head atraumatic 09/17/2015 None Full Exam - General 1994 Neurologic cranial nerves Overall: crainial nerves 2 - 12 grossly intact 09/17/2015 None Full Exam - General 1994 Psychiatric orientation/consciousness Overall: oriented to person, place and time 09/17/2015 None Full Exam - General 1994 Psychiatric mood and affect Overall: normal mood and affect 09/17/2015 None Full Exam - General 1994 Cardiovascular extremities Edema present: bilateral 09/17/2015 None Full Exam - General 1994 Cardiovascular auscultation of heart Rhythm: irregularly irregular rhythm 09/17/2015 None Full Exam - General 1994 Cardiovascular auscultation of heart Overall: regular rate 09/17/2015 None Full Exam - General 1994 Musculoskeletal spine, ribs and pelvis Spine: tender @ cervical spine 09/17/2015 and shoulders, muscle tension. Relieved with tylenol Full Exam - General 1994 Constitutional general appearance Development: well developed 05/31/2015 None Full Exam - General 1994 Constitutional general appearance Development: appears stated age 1205/31/2015 None Full Exam - General 1994 Constitutional general appearance Hygiene/Attention to Grooming: good hygiene 05/31/2015 None Full Exam - General 1994 Eyes conjunctiva/eyelids Overall: conjunctiva clear 05/31/2015 None Full Exam - General 1994 Eyes conjunctiva/eyelids Overall: cornea clear 05/31/2015 None Full Exam - General 1994 Eyes conjunctiva/eyelids Overall: eyelids normal 05/31/2015 None Full Exam - General 1994 Eyes pupils and irises Overall: pupils equal, round, reactive to light and accomodation 05/31/2015 None Full Exam - General 1994 Ears/Nose/Throat otoscopic exam Overall: external auditory canals clear 05/31/2015 None Full Exam - General 1994 Ears/Nose/Throat otoscopic exam Overall: tympanic membranes clear 05/31/2015 None Full Exam - General 1994 Ears/Nose/Throat lips/teeth/gingiva Overall: benign lips 05/31/2015 None Full Exam - General 1994 Ears/Nose/Throat lips/teeth/gingiva Overall: normal dentition 05/31/2015 None Full Exam - General 1994 Ears/Nose/Throat oral cavity/pharynx/larynx Overall: oral mucosa clear 05/31/2015 None Full Exam - General 1994 Ears/Nose/Throat oral cavity/pharynx/larynx Overall: oropharyngeal mucosa clear 05/31/2015 None Full Exam - General 1994 Ears/Nose/Throat oral cavity/pharynx/larynx Overall: hypopharynx benign 05/31/2015 None Full Exam - General 1994 Ears/Nose/Throat oral cavity/pharynx/larynx Overall: no masses 05/31/2015 None Full Exam - General 1994 Respiratory auscultation Overall: breath sounds clear bilaterally 05/31/2015 None Full Exam - General 1994 Respiratory respiratory effort/rhythm Overall: no retractions 05/31/2015 None Full Exam - General 1994 Respiratory respiratory effort/rhythm Overall: normal rate 05/31/2015 None Full Exam - General 1994 Cardiovascular auscultation of heart Overall: regular rate 05/31/2015 None Full Exam - General 1994 Cardiovascular auscultation of heart Overall: normal heart sounds 05/31/2015 None Full Exam - General 1994 Abdomen abdominal exam Overall: no tenderness 05/31/2015 None Full Exam - General 1994 Abdomen abdominal exam Overall: normal bowel sounds 05/31/2015 None Full Exam - General 1994 Lymphatic neck nodes Overall: anterior cervical chain benign 05/31/2015 None Full Exam - General 1994 Lymphatic neck nodes Overall: posterior cervical chain benign 05/31/2015 None Full Exam - General 1994 Musculoskeletal head and neck Overall: head atraumatic 05/31/2015 None Full Exam - General 1994 Musculoskeletal head and neck Overall: cervical spine benign 05/31/2015 None Full Exam - General 1994 Neurologic deep tendon reflexes Overall: deep tendon reflexes intact 05/31/2015 None Full Exam - General 1994 Neurologic cranial nerves Overall: crainial nerves 2 - 12 grossly intact 05/31/2015 None Full Exam - General 1994 Psychiatric orientation/consciousness Overall: oriented to person, place and time 05/31/2015 None Full Exam - General 1994 Psychiatric mood and affect Overall: normal mood and affect 05/31/2015 None Full Exam - General 1994 Cardiovascular extremities Edema present: pitting 05/31/2015 None Full Exam - General 1994 Cardiovascular extremities Edema present: severity 1+ - 4+: 2+ 05/31/2015 None Full Exam - General 1994 Cardiovascular extremities Edema present: to knees 05/31/2015 None Full Exam - General 1994 Constitutional general appearance Development: well developed 02/05/2015 None Full Exam - General 1994 Constitutional general appearance Development: appears stated age 0802/05/2015 None Full Exam - General 1994 Constitutional general appearance Hygiene/Attention to Grooming: good hygiene 02/05/2015 None Full Exam - General 1994 Eyes conjunctiva/eyelids Overall: conjunctiva clear 02/05/2015 None Full Exam - General 1994 Eyes conjunctiva/eyelids Overall: cornea clear 02/05/2015 None Full Exam - General 1994 Eyes conjunctiva/eyelids Overall: eyelids normal 02/05/2015 None Full Exam - General 1994 Eyes pupils and irises Overall: pupils equal, round, reactive to light and accomodation 02/05/2015 None Full Exam - General 1994 Ears/Nose/Throat otoscopic exam Overall: external auditory canals clear 02/05/2015 None Full Exam - General 1994 Ears/Nose/Throat otoscopic exam Overall: tympanic membranes clear 02/05/2015 None Full Exam - General 1994 Ears/Nose/Throat lips/teeth/gingiva Overall: benign lips 02/05/2015 None Full Exam - General 1994 Ears/Nose/Throat lips/teeth/gingiva Overall: normal dentition 02/05/2015 None Full Exam - General 1994 Ears/Nose/Throat oral cavity/pharynx/larynx Overall: oral mucosa clear 02/05/2015 None Full Exam - General 1994 Ears/Nose/Throat oral cavity/pharynx/larynx Overall: oropharyngeal mucosa clear 02/05/2015 None Full Exam - General 1994 Ears/Nose/Throat oral cavity/pharynx/larynx Overall: hypopharynx benign 02/05/2015 None Full Exam - General 1994 Ears/Nose/Throat oral cavity/pharynx/larynx Overall: no masses 02/05/2015 None Full Exam - General 1994 Respiratory auscultation Overall: breath sounds clear bilaterally 02/05/2015 None Full Exam - General 1994 Respiratory respiratory effort/rhythm Overall: no retractions 02/05/2015 None Full Exam - General 1994 Respiratory respiratory effort/rhythm Overall: normal rate 02/05/2015 None Full Exam - General 1994 Cardiovascular extremities Overall: no clubbing 02/05/2015 None Full Exam - General 1994 Cardiovascular auscultation of heart Overall: regular rate 02/05/2015 None Full Exam - General 1994 Cardiovascular auscultation of heart Overall: normal heart sounds 02/05/2015 None Full Exam - General 1994 Abdomen abdominal exam Overall: no tenderness 02/05/2015 None Full Exam - General 1994 Abdomen abdominal exam Overall: normal bowel sounds 02/05/2015 None Full Exam - General 1994 Lymphatic neck nodes Overall: anterior cervical chain benign 02/05/2015 None Full Exam - General 1994 Lymphatic neck nodes Overall: posterior cervical chain benign 02/05/2015 None Full Exam - General 1994 Musculoskeletal head and neck Overall: head atraumatic 02/05/2015 None Full Exam - General 1994 Musculoskeletal head and neck Overall: cervical spine benign 02/05/2015 None Full Exam - General 1994 Neurologic deep tendon reflexes Overall: deep tendon reflexes intact 02/05/2015 None Full Exam - General 1994 Neurologic cranial nerves Overall: crainial nerves 2 - 12 grossly intact 02/05/2015 None Full Exam - General 1994 Psychiatric orientation/consciousness Overall: oriented to person, place and time 02/05/2015 None Full Exam - General 1994 Psychiatric mood and affect Overall: normal mood and affect 02/05/2015 None Full Exam - General 1994 Constitutional general appearance Development: appears stated age 0511/20/2014 None Full Exam - General 1994 Constitutional general appearance Development: well developed 11/20/2014 None Full Exam - General 1994 Constitutional general appearance Hygiene/Attention to Grooming: good hygiene 11/20/2014 None Full Exam - General 1994 Eyes conjunctiva/eyelids Overall: conjunctiva clear 11/20/2014 None Full Exam - General 1994 Eyes conjunctiva/eyelids Overall: cornea clear 11/20/2014 None Full Exam - General 1994 Eyes conjunctiva/eyelids Overall: eyelids normal 11/20/2014 None Full Exam - General 1994 Eyes pupils and irises Overall: pupils equal, round, reactive to light and accomodation 11/20/2014 None Full Exam - General 1994 Ears/Nose/Throat otoscopic exam Overall: external auditory canals clear 11/20/2014 None Full Exam - General 1994 Ears/Nose/Throat otoscopic exam Overall: tympanic membranes clear 11/20/2014 None Full Exam - General 1994 Ears/Nose/Throat lips/teeth/gingiva Overall: benign lips 11/20/2014 None Full Exam - General 1994 Ears/Nose/Throat lips/teeth/gingiva Overall: normal dentition 11/20/2014 None Full Exam - General 1994 Ears/Nose/Throat oral cavity/pharynx/larynx Overall: hypopharynx benign 11/20/2014 None Full Exam - General 1994 Ears/Nose/Throat oral cavity/pharynx/larynx Overall: no masses 11/20/2014 None Full Exam - General 1994 Ears/Nose/Throat oral cavity/pharynx/larynx Overall: oral mucosa clear 11/20/2014 None Full Exam - General 1994 Ears/Nose/Throat oral cavity/pharynx/larynx Overall: oropharyngeal mucosa clear 11/20/2014 None Full Exam - General 1994 Respiratory auscultation Overall: breath sounds clear bilaterally 11/20/2014 None Full Exam - General 1994 Respiratory respiratory effort/rhythm Overall: no retractions 11/20/2014 None Full Exam - General 1994 Respiratory respiratory effort/rhythm Overall: normal rate 11/20/2014 None Full Exam - General 1994 Cardiovascular extremities Overall: no clubbing 11/20/2014 None Full Exam - General 1994 Cardiovascular auscultation of heart Overall: normal heart sounds 11/20/2014 None Full Exam - General 1994 Cardiovascular auscultation of heart Overall: regular rate 11/20/2014 None Full Exam - General 1994 Abdomen abdominal exam Overall: no tenderness 11/20/2014 None Full Exam - General 1994 Abdomen abdominal exam Overall: normal bowel sounds 11/20/2014 None Full Exam - General 1994 Neurologic deep tendon reflexes Overall: deep tendon reflexes intact 11/20/2014 None Full Exam - General 1994 Neurologic cranial nerves Overall: crainial nerves 2 - 12 grossly intact 11/20/2014 None Full Exam - General 1994 Psychiatric orientation/consciousness Overall: oriented to person, place and time 11/20/2014 None Full Exam - General 1994 Psychiatric mood and affect Overall: normal mood and affect 11/20/2014 None Full Exam - General 1994 Lymphatic neck nodes Overall: anterior cervical chain benign 11/20/2014 None Full Exam - General 1994 Lymphatic neck nodes Overall: posterior cervical chain benign 11/20/2014 None Full Exam - General 1994 Musculoskeletal head and neck Overall: cervical spine benign 11/20/2014 None Full Exam - General 1994 Musculoskeletal head and neck Overall: head atraumatic 11/20/2014 None Full Exam - General 1994 Integument inspection of skin Location: face 11/20/2014 None Full Exam - General 1994 Integument inspection of skin Location: neck 11/20/2014 None Procedures Procedure Codes Date URINALYSIS NONAUTO W /O SCOPE CPT-4: 91705 01/10/2019 URINALYSIS NONAUTO W /O SCOPE CPT-4: 24514 12/05/2018 ROCEPHIN, PER 250 MG CPT-4: J0696 10/27/2018 URINALYSIS NONAUTO W /O SCOPE CPT-4: 95921 10/27/2018 ADMIN INFLUENZA VIRU S VAC CPT-4: G0008 03/24/2018 ADMIN PNEUMOCOCCAL V ACCINE SNOMED CT: 50780665 CPT-4: G0009 03/24/2018 IIV NO PRSV INCREASE D AG IM Formatting Model/CDA Sections, Assigned to/Dorothea Tan CPT-4: 66839Wryuwzt 03/24/2018 Pneumococcal Polysac charide Vaccine, 23-Valent, Ad CPT-4: 09345 03/24/2018 TRIAMCINOLONE ACET I [place] NOS CPT-4: J3301 06/15/2017 THER/PROPH/DIAG INJ SC/IM CPT-4: 55397 06/15/2017 ADMIN PNEUMOCOCCAL V ACCINE SNOMED CT: 56484601 CPT-4: G0009 03/16/2017 ADMIN INFLUENZA VIRU S VAC CPT-4: G0008 03/16/2017 FLU VAC NO PRSV 4 VA L 3 YRS+ CPT-4: 08107 03/16/2017 PNEUMOCOCCAL VACC [address]: 40840495 CPT-4: 27870 03/16/2017 URINALYSIS NONAUTO W /O SCOPE CPT-4: 31887 08/26/2016 THER/PROPH/DIAG INJ SC/IM CPT-4: 01635 07/22/2016 TRIAMCINOLONE ACET I [place] NOS CPT-4: J3301 07/22/2016 ROCEPHIN, PER 250 MG CPT-4: J0696 07/22/2016 TRIAMCINOLONE ACET I [place] NOS CPT-4: J3301 02/05/2015 Vital Signs Date Vital 03/07/2019 Blood Pressure 1: 110/68 Code: 8480-6 Heart Rate 1: 96 bpm Height: 5'7" SpO2: 99% Weight: 01/31/2019 Blood Pressure 1: 100/60 Code: 8480-6 BMI: 33.4 Code: 63519-0 Heart Rate 1: 85 bpm Height: 5'7" SpO2: 97% Weight: 213 lbs 01/10/2019 BMI: 32.9 Code: 28906-7 Heart Rate 1: 74 bpm Height: 5'7" Weight: 210 lbs 12/05/2018 Blood Pressure 1: 132/70 Code: 8480-6 BMI: 32.4 Code: 98311-3 Heart Rate 1: 84 bpm Height: 5'7" SpO2: 91% Weight: 207 lbs 11/17/2018 Blood Pressure 1: 102/62 Code: 8480-6 BMI: 32.4 Code: 14789-3 Heart Rate 1: 83 bpm Height: 5'7" SpO2: 94% Weight: 207 lbs 10/27/2018 Blood Pressure 1: 120/74 Code: 8480-6 BMI: 32.4 Code: 14801-1 Heart Rate 1: 65 bpm Height: 5'7" SpO2: 97% Weight: 207 lbs 09/27/2018 Blood Pressure 1: 128/74 Code: 8480-6 BMI: 32.4 Code: 42852-0 Heart Rate 1: 92 bpm Height: 5'7" SpO2: 97% Weight: 207 lbs 08/16/2018 Blood Pressure 1: 104/66 Code: 8480-6 BMI: 32.3 Code: 12305-9 Heart Rate 1: 94 bpm Height: 5'7" SpO2: 96% Weight: 206 lbs 07/11/2018 Blood Pressure 1: 102/68 Code: 8480-6 BMI: 34.5 Code: 74950-8 Heart Rate 1: 101 bpm Height: 5'7" SpO2: 98% Weight: 220 lbs 03/24/2018 Blood Pressure 1: 130/72 Code: 8480-6 BMI: 33.4 Code: 25150-7 Heart Rate 1: 82 bpm Height: 5'7" SpO2: 93% Weight: 213 lbs 11/18/2017 Blood Pressure 1: 128/70 Code: 8480-6 BMI: 33.6 Code: 04666-3 Heart Rate 1: 98 bpm Height: 5'7" SpO2: 97% Weight: 214 lbs 8 oz 09/30/2017 Blood Pressure 1: 100/50 Code: 8480-6 BMI: 34.0 Code: 87216-3 Heart Rate 1: 66 bpm Height: 5'7" SpO2: 96% Weight: 217 lbs 08/17/2017 Blood Pressure 1: 104/60 Code: 8480-6 BMI: 33.7 Code: 34566-2 Heart Rate 1: 99 bpm Height: 5'7" SpO2: 97% Weight: 215 lbs 06/15/2017 Blood Pressure 1: 120/64 Code: 8480-6 BMI: 33.5 Code: 63114-4 Heart Rate 1: 91 bpm Height: 5'7" SpO2: 94% Weight: 214 lbs 04/01/2017 Blood Pressure 1: 110/68 Code: 8480-6 BMI: 154.4 Code: 52649-9 Heart Rate 1: 66 bpm Height: 2'7" SpO2: 95% Weight: 211 lbs 03/16/2017 Blood Pressure 1: 130/72 Code: 8480-6 BMI: 33.0 Code: 11625-4 Heart Rate 1: 95 bpm Height: 5'7" SpO2: 97% Weight: 211 lbs 02/09/2017 Blood Pressure 1: 120/70 Code: 8480-6 BMI: 32.9 Code: 17681-6 Heart Rate 1: 78 bpm Height: 5'7" SpO2: 96% Weight: 210 lbs 10/13/2016 Blood Pressure 1: 118/76 Code: 8480-6 BMI: 32.6 Code: 86986-7 Heart Rate 1: 97 bpm Height: 5'7" SpO2: 98% Weight: 208 lbs 07/31/2016 Blood Pressure 1: 110/64 Code: 8480-6 BMI: 32.1 Code: 53843-3 Heart Rate 1: 79 bpm Height: 5'7" SpO2: 94% Weight: 205 lbs 07/22/2016 Blood Pressure 1: 108/74 Code: 8480-6 BMI: 32.1 Code: 02212-5 Heart Rate 1: 71 bpm Height: 5'7" SpO2: 97% Temperature: 36.9 (C ) / 98.4 (F) Weight: 205 lbs 05/01/2016 Blood Pressure 1: 120/72 Code: 8480-6 BMI: 32.7 Code: 67807-8 Heart Rate 1: 75 bpm Height: 5'7" SpO2: 94% Weight: 209 lbs 04/06/2016 Blood Pressure 1: 106/62 Code: 8480-6 BMI: 32.7 Code: 76791-7 Heart Rate 1: 83 bpm Height: 5'7" SpO2: 97% Weight: 209 lbs 03/06/2016 Blood Pressure 1: 112/68 Code: 8480-6 BMI: 32.7 Code: 32092-9 Heart Rate 1: 90 bpm Height: 5'7" SpO2: 97% Weight: 209 lbs 03/03/2016 Blood Pressure 1: 120/62 Code: 8480-6 BMI: 32.7 Code: 87225-7 Heart Rate 1: 92 bpm Height: 5'7" SpO2: 98% Weight: 209 lbs 02/07/2016 Blood Pressure 1: 110/64 Code: 8480-6 BMI: 32.7 Code: 20255-3 Heart Rate 1: 87 bpm Height: 5'7" SpO2: 97% Weight: 209 lbs 12/13/2015 Blood Pressure 1: 110/64 Code: 8480-6 BMI: 33.5 Code: 34467-7 Heart Rate 1: 90 bpm Height: 5'7" SpO2: 97% Weight: 214 lbs 12/03/2015 Blood Pressure 1: 132/76 Code: 8480-6 BMI: 33.4 Code: 53609-2 Heart Rate 1: 82 bpm Height: 5'7" SpO2: 99% Weight: 213 lbs 11/20/2015 Blood Pressure 1: 108/68 Code: 8480-6 BMI: 32.4 Code: 00764-0 Heart Rate 1: 77 bpm Height: 5'7" SpO2: 97% Weight: 207 lbs 09/17/2015 Blood Pressure 1: 122/76 Code: 8480-6 BMI: 33.0 Code: 53733-4 Heart Rate 1: 91 bpm Height: 5'7" SpO2: 97% Weight: 211 lbs 05/31/2015 Blood Pressure 1: 128/82 Code: 8480-6 BMI: 33.4 Code: 63456-4 Heart Rate 1: 98 bpm Height: 5'7" SpO2: 99% Weight: 213 lbs 02/05/2015 Blood Pressure 1: 128/80 Code: 8480-6 BMI: 32.6 Code: 74975-7 Heart Rate 1: 86 bpm Height: 5'7" SpO2: 97% Weight: 208 lbs 11/20/2014 Blood Pressure 1: 128/90 Code: 8480-6 BMI: 30.9 Code: 23638-9 Heart Rate 1: 94 bpm Height: 5'7" Weight: 197 lbs Functional Status No Functional Status data History of Present Illness Symptom Name Status Resu lt Effective Date Notes Quality chronic 03/07/2019 None Quality primary hypert ension 03/07/2019 None Onset of Symptom durin g adulthood 03/07/2019 None Blood Pressure Values not checking blood pressure at home 03/07/2019 None Alleviating Factors me dication 03/07/2019 None Pertinent Findings Den ies dizziness 03/07/2019 None Pertinent Findings dys pnea 03/07/2019 when climbing stairs Pertinent Findings edema 03/07/2019 in the feet and ankles Quality chronic 03/07/2019 None Onset and Resolution o ngoing 03/07/2019 None Alleviating Factors me dication 03/07/2019 None Quality fullness 03/07/2019 None Quality pressure 03/07/2019 None Quality constant 03/07/2019 None Onset and Resolution g radual in onset 03/07/2019 None Onset of Symptom 3 wee ks ago 03/07/2019 None Quality chronic 01/31/2019 None Quality primary hypert ension 01/31/2019 None Onset of Symptom durin g adulthood 01/31/2019 None Blood Pressure Values not checking blood pressure at home 01/31/2019 None Alleviating Factors me dication 01/31/2019 None Pertinent Findings Den ies dizziness 01/31/2019 None Pertinent Findings dys pnea 01/31/2019 when climbing stairs Pertinent Findings edema 01/31/2019 in the feet and ankles Quality chronic 01/31/2019 None Onset and Resolution o ngoing 01/31/2019 None Alleviating Factors me dication 01/31/2019 None Quality acute 01/10/2019 None Onset and Resolution s udden in onset 01/10/2019 None Onset of Symptom 1 day s ago 01/10/2019 None Limitation on Activities does not limit urination 01/10/2019 None Pertinent Findings Den ies fever 01/10/2019 None Quality acute 12/05/2018 None Onset and Resolution o ngoing 12/05/2018 None Onset of Symptom 1 wee ks ago 12/05/2018 None Frequency of Episodes daily 12/05/2018 None Pertinent Findings lucretia dder pain 12/05/2018 None Pertinent Findings peggy k pain 12/05/2018 None Pertinent Findings chi lls 12/05/2018 None Location on the right leg 11/17/2018 None Quality acute 11/17/2018 None Quality burning 11/17/2018 None Onset and Resolution s udden in onset 11/17/2018 None Triggers no known asso ciated factors 11/17/2018 None Onset of Symptom 5 day s ago 11/17/2018 None Pertinent Findings belem thema 11/17/2018 None Limitation on Activities does not limit activities 11/17/2018 None Frequency of Episodes unchanged 11/17/2018 None Quality constant 10/27/2018 None Onset and Resolution s udden in onset 10/27/2018 None Onset of Symptom 1 day s ago 10/27/2018 None Quality constant 10/27/2018 None Quality chronic 09/27/2018 None Quality primary hypert ension 09/27/2018 None Onset and Resolution o ngoing 09/27/2018 None Onset of Symptom durin g adulthood 09/27/2018 None Blood Pressure Values not checking blood pressure at home 09/27/2018 None Alleviating Factors me dication 09/27/2018 None Pertinent Findings Den ies anxiety 09/27/2018 None Pertinent Findings Den ies decreased energy 09/27/2018 None Pertinent Findings Den ies dizziness 09/27/2018 None Pertinent Findings Den ies dyspnea 09/27/2018 None Pertinent Findings Den ies edema 09/27/2018 None Quality enlarging 09/27/2018 None Quality firm 09/27/2018 None Quality tender 09/27/2018 None Pertinent Findings Den ies fever 09/27/2018 None Quality chronic 08/16/2018 None Quality primary hypert ension 08/16/2018 None Onset and Resolution o ngoing 08/16/2018 None Onset of Symptom durin g adulthood 08/16/2018 None Blood Pressure Values not checking blood pressure at home 08/16/2018 None Alleviating Factors me dication 08/16/2018 None Pertinent Findings Den ies anxiety 08/16/2018 None Pertinent Findings Den ies decreased energy 08/16/2018 None Pertinent Findings Den ies dizziness 08/16/2018 None Pertinent Findings Den ies dyspnea 08/16/2018 None Pertinent Findings edema 08/16/2018 None Quality chronic 08/16/2018 None Onset and Resolution D enies ongoing 08/16/2018 None Alleviating Factors me dication 08/16/2018 None Quality constant 08/16/2018 None Frequency of Episodes daily 08/16/2018 None Triggers no known asso ciated factors 08/16/2018 None Location on the right leg 08/16/2018 None Quality enlarging 08/16/2018 None Quality firm 08/16/2018 None Quality tender 08/16/2018 None Onset and Resolution r esolved 08/16/2018 None Onset and Resolution o ngoing 07/11/2018 None Onset of Symptom durin g adulthood 07/11/2018 None Pertinent Findings Den ies dyspnea 07/11/2018 None Pertinent Findings edema 07/11/2018 None Quality chronic 07/11/2018 None Quality primary hypert ension 07/11/2018 None Alleviating Factors me dication 07/11/2018 None Quality chronic 07/11/2018 None Onset and Resolution D enies ongoing 07/11/2018 None Alleviating Factors me dication 07/11/2018 None Blood Pressure Values not checking blood pressure at home 07/11/2018 None Pertinent Findings Den ies dizziness 07/11/2018 None _ Other: diverticuliti s, UTI 07/11/2018 None Quality acute illness 07/11/2018 None Quality improving 07/11/2018 None Alleviating Factors me dication 07/11/2018 None Pertinent Findings Den ies anxiety 07/11/2018 None Pertinent Findings Den ies decreased energy 07/11/2018 None Quality constant 07/11/2018 None Onset and Resolution g radual in onset 07/11/2018 None Onset of Symptom 1 mon ths ago 07/11/2018 None Frequency of Episodes daily 07/11/2018 None Triggers no known asso ciated factors 07/11/2018 None Location on the right leg 07/11/2018 None hypertension Onset and Resolution ongoing 03/24/2018 None hypertension Onset of Symptom during adulthood 03/24/2018 None hypertension Pertinent Findings Denies anxiety 03/24/2018 None hypertension Pertinent Findings Denies decreased energy 03/24/2018 None hypertension Pertinent Findings dizziness 03/24/2018 few vertigo spells in the morning hypertension Pertinent Findings dyspnea 03/24/2018 None hypertension Pertinent Findings edema 03/24/2018 None edema Quality constant 03/24/2018 None edema Onset and Resolution gradual in onset 03/24/2018 None edema Onset of Symptom 1 months ago 03/24/2018 None edema Frequency of Episodes daily 03/24/2018 None edema Triggers no known associated factors 03/24/2018 None edema Location on the ri ght leg 03/24/2018 None hypertension Onset and Resolution ongoing 11/18/2017 None hypertension Onset of Symptom during adulthood 11/18/2017 None edema Onset and Resolution gradual in onset 11/18/2017 None edema Onset of Symptom 1 months ago 11/18/2017 None edema Frequency of Episodes daily 11/18/2017 None edema Triggers no known associated factors 11/18/2017 None edema Location on the ri ght leg 11/18/2017 None edema Quality constant 11/18/2017 None hypertension Pertinent Findings Denies anxiety 11/18/2017 None hypertension Pertinent Findings Denies dizziness 11/18/2017 None hypertension Pertinent Findings Denies dyspnea 11/18/2017 None hypertension Pertinent Findings edema 11/18/2017 None hypertension Pertinent Findings Denies decreased energy 11/18/2017 None edema Onset and Resolution gradual in onset 09/30/2017 None edema Onset of Symptom 1 months ago 09/30/2017 None edema Triggers no known associated factors 09/30/2017 None edema Frequency of Episodes daily 09/30/2017 None edema Quality constant 09/30/2017 None edema Location on the ri ght leg 09/30/2017 None sinus congestion Quality intermittent 08/17/2017 None sinus congestion Onset and Resolution ongoing 08/17/2017 None sinus congestion Onset of Symptom _ months ago 08/17/2017 None sinus congestion Pertinent Findings hoarseness 08/17/2017 None hypertension Onset and Resolution ongoing 08/17/2017 None hypertension Onset of Symptom during adulthood 08/17/2017 None vertigo Quality intermit tent 06/15/2017 None vertigo Onset and Resolution ongoing 06/15/2017 None vertigo Pertinent Findings Denies dizziness 06/15/2017 None vertigo Pertinent Findings lightheadedness 06/15/2017 None vertigo Pertinent Findings Denies syncope 06/15/2017 None sinus congestion Onset and Resolution ongoing 06/15/2017 None sinus congestion Onset of Symptom _ months ago 06/15/2017 None sinus congestion Pertinent Findings hoarseness 06/15/2017 None sinus congestion Quality intermittent 06/15/2017 None skin lesion Onset and Resolution sudden in onset 04/01/2017 None skin lesion Onset of Symptom 1 days ago 04/01/2017 None skin lesion Location fin emily and/or fingers of left hand 04/01/2017 None skin lesion Pertinent Findings Denies fever 04/01/2017 None vertigo Quality intermit tent 03/16/2017 None vertigo Onset and Resolution ongoing 03/16/2017 None vertigo Pertinent Findings Denies dizziness 03/16/2017 None vertigo Pertinent Findings lightheadedness 03/16/2017 None vertigo Pertinent Findings Denies syncope 03/16/2017 None sinus congestion Quality intermittent 03/16/2017 None sinus congestion Onset and Resolution ongoing 03/16/2017 None sinus congestion Onset of Symptom _ months ago 03/16/2017 None sinus congestion Pertinent Findings hoarseness 03/16/2017 None vertigo Quality intermit tent 02/09/2017 None vertigo Onset and Resolution ongoing 02/09/2017 None vertigo Pertinent Findings Denies dizziness 02/09/2017 None vertigo Pertinent Findings Denies syncope 02/09/2017 None vertigo Pertinent Findings lightheadedness 02/09/2017 None sinus congestion Quality intermittent 02/09/2017 None sinus congestion Onset and Resolution ongoing 02/09/2017 None sinus congestion Onset of Symptom _ months ago 02/09/2017 None sinus congestion Pertinent Findings hoarseness 02/09/2017 None hypertension Onset and Resolution ongoing 10/13/2016 None hypertension Onset of Symptom during adulthood 10/13/2016 None hypertension Blood Pressure Values not checking blood pressure at home 10/13/2016 None hypertension Pertinent Findings dizziness 10/13/2016 "sometimes" hypertension Pertinent Findings dyspnea 10/13/2016 "sometimes" hypertension Pertinent Findings edema 10/13/2016 (bilateral legs) hypothyroid Onset and Resolution ongoing 10/13/2016 None hypothyroid Alleviating Factors medication 10/13/2016 None hypertension Quality sta ble 10/13/2016 None sinus congestion Quality fullness 07/31/2016 None sinus congestion Quality pressure 07/31/2016 None sinus congestion Onset and Resolution sudden in onset 07/31/2016 None sinus congestion Onset of Symptom _ weeks ago 07/31/2016 None sinus congestion Pertinent Findings cough 07/31/2016 None sinus congestion Pertinent Findings Denies fever 07/31/2016 None sinus congestion Pertinent Findings hoarseness 07/31/2016 None sinus congestion Quality fullness 07/22/2016 None sinus congestion Quality pressure 07/22/2016 None sinus congestion Onset and Resolution sudden in onset 07/22/2016 None sinus congestion Onset of Symptom _ weeks ago 07/22/2016 None sinus congestion Pertinent Findings cough 07/22/2016 None sinus congestion Pertinent Findings hoarseness 07/22/2016 None sinus congestion Pertinent Findings Denies fever 07/22/2016 None sinusitis Location in th e bilateral frontal sinuses 07/22/2016 None sinusitis Location in th e bilateral maxillary sinuses 07/22/2016 None sinusitis Onset and Resolution gradual in onset 07/22/2016 None sinusitis Onset and Resolution ongoing 07/22/2016 None sinusitis Pertinent Findings facial pain 07/22/2016 None sinusitis Pertinent Findings fatigue 07/22/2016 None sinusitis Pertinent Findings headache 07/22/2016 None sinusitis Pertinent Findings sinus pain 07/22/2016 None sinusitis Pertinent Findings sinus pressure 07/22/2016 None sinusitis Quality acute 07/22/2016 None sinusitis Quality pain 07/22/2016 None sinusitis Quality pressu re 07/22/2016 None sinusitis Severity moder ate 07/22/2016 None nasal allergies Location in both nares 05/01/2016 None nasal allergies Onset and Resolution ongoing 05/01/2016 None hypertension Quality chr onic 05/01/2016 None hypertension Quality sta ble 05/01/2016 None hypertension Pertinent Findings Denies dyspnea 05/01/2016 None nasal allergies Pertinent Findings Denies fever 05/01/2016 None edema Onset and Resolution gradual in onset 04/06/2016 None edema Onset of Symptom 2 days ago 04/06/2016 None foot pain Location on th e left 03/10/2016 None foot pain Pertinent Findings swelling 03/10/2016 improved foot pain Quality improv ing 03/10/2016 None foot pain Pertinent Findings Denies redness 03/10/2016 None foot pain Pertinent Findings Denies warmth 03/10/2016 None foot pain Pertinent Findings Denies pain with movement 03/10/2016 None foot pain Location on th e left 03/06/2016 None foot pain Quality numbne ss 03/06/2016 None foot pain Quality sharp pain 03/06/2016 None foot pain Quality tender ness 03/06/2016 None foot pain Quality throbb ing 03/06/2016 None foot pain Quality consta nt 03/06/2016 None foot pain Quality worsen ing 03/06/2016 None foot pain Onset and Resolution sudden in onset 03/06/2016 None foot pain Onset of Symptom 3 weeks ago 03/06/2016 None foot pain Frequency of Episodes daily 03/06/2016 None foot pain Pertinent Findings pain with movement 03/06/2016 None foot pain Pertinent Findings redness 03/06/2016 None foot pain Pertinent Findings swelling 03/06/2016 None foot pain Pertinent Findings tingling 03/06/2016 None foot pain Pertinent Findings warmth 03/06/2016 None foot pain Location on th e left 03/03/2016 None foot pain Quality numbne ss 03/03/2016 None foot pain Quality sharp pain 03/03/2016 None foot pain Quality tender ness 03/03/2016 None foot pain Quality throbb ing 03/03/2016 None foot pain Quality consta nt 03/03/2016 None foot pain Quality worsen ing 03/03/2016 None foot pain Onset and Resolution sudden in onset 03/03/2016 None foot pain Onset of Symptom 3 weeks ago 03/03/2016 None foot pain Frequency of Episodes daily 03/03/2016 None foot pain Pertinent Findings pain with movement 03/03/2016 None foot pain Pertinent Findings redness 03/03/2016 None foot pain Pertinent Findings swelling 03/03/2016 None foot pain Pertinent Findings warmth 03/03/2016 None foot pain Pertinent Findings tingling 03/03/2016 None low back and leg pain Location on the right 02/07/2016 None low back and leg pain Radiating the right lateral thigh 02/07/2016 None low back and leg pain Quality sharp pain 02/07/2016 None low back and leg pain Quality intermittent 02/07/2016 None low back and leg pain Quality aching 02/07/2016 None low back and leg pain Quality discomfort 02/07/2016 None low back and leg pain Quality squeezing 02/07/2016 None low back and leg pain Onset and Resolution sudden in onset 02/07/2016 None low back and leg pain Frequency of Episode s daily 02/07/2016 None low back and leg pain Onset and Resolution ongoing 02/07/2016 None knee pain Location on th e left 02/07/2016 None knee pain Quality dull p ain 02/07/2016 None knee pain Location in th e posterior region 02/07/2016 None low back and leg pain Location on the right 12/13/2015 None low back and leg pain Radiating the right lateral thigh 12/13/2015 None low back and leg pain Quality sharp pain 12/13/2015 None low back and leg pain Quality intermittent 12/13/2015 None low back and leg pain Quality aching 12/13/2015 None low back and leg pain Quality discomfort 12/13/2015 None low back and leg pain Quality squeezing 12/13/2015 None low back and leg pain Onset of Symptom 1 weeks ago 12/13/2015 None low back and leg pain Onset and Resolution sudden in onset 12/13/2015 None low back and leg pain Frequency of Episode s daily 12/13/2015 None low back and leg pain Mechanism of injury unknown 12/13/2015 None abnormal bleeding and bruising Onset and Resolution sudden in onset 12/13/2015 None abnormal bleeding and bruising Onset of Symptom _ months ago 12/13/2015 None abnormal bleeding and bruising Location on the left arm 12/03/2015 None abnormal bleeding and bruising Location on the right arm 12/03/2015 None abnormal bleeding and bruising Onset and Resolution ongoing 12/03/2015 None abnormal bleeding and bruising Frequ ency of Episodes daily 12/03/2015 None abnormal bleeding and bruising Perti nent Findings dyspnea 12/03/2015 None abnormal bleeding and bruising Perti nent Findings Denies syncope 12/03/2015 None edema Onset and Resolution ongoing 12/03/2015 None edema Limitation on Activities does not limit activities 12/03/2015 None edema Alleviating Factors rest 12/03/2015 None edema Pertinent Findings back pain 12/03/2015 None edema Pertinent Findings dyspnea 12/03/2015 None edema Pertinent Findings Denies tachycardia 12/03/2015 None abnormal bleeding and bruising Location on the left arm 11/20/2015 None abnormal bleeding and bruising Location on the right arm 11/20/2015 None abnormal bleeding and bruising Location on the left leg 11/20/2015 None abnormal bleeding and bruising Location on the right leg 11/20/2015 None abnormal bleeding and bruising Location on the back 11/20/2015 None abnormal bleeding and bruising Quality acute 11/20/2015 None abnormal bleeding and bruising Quality hematoma 11/20/2015 None abnormal bleeding and bruising Quality worsening 11/20/2015 None abnormal bleeding and bruising Onset and Resolution ongoing 11/20/2015 None abnormal bleeding and bruising Onset of Symptom during adulthood 11/20/2015 None abnormal bleeding and bruising Exace rbating Factors medication 11/20/2015 No ne fatigue Quality worsening 11/20/2015 None fatigue Alleviating Factors rest 11/20/2015 None fatigue Exacerbating Factors activity 11/20/2015 None fatigue Exacerbating Factors exertion 11/20/2015 None fatigue Onset and Resolution ongoing 11/20/2015 None Hospital Follow Up _ Ot er: fall 09/17/2015 None Hospital Follow Up Onset of Symptom 2 weeks ago 09/17/2015 None Hospital Follow Up Mechanism of injury direct trauma 09/17/2015 None neck pain Location in th e trapezius muscle 09/17/2015 None neck pain Onset and Resolution ongoing 09/17/2015 None neck pain Quality consta nt 09/17/2015 None neck pain Alleviating Factors rest 09/17/2015 None neck pain Alleviating Factors medication 09/17/2015 None neck pain Alleviating Factors heat application 09/17/2015 None neck pain Exacerbating Factors lifting 09/17/2015 None neck pain Exacerbating Factors stress 09/17/2015 None neck pain Exacerbating Factors exertion 09/17/2015 None neck pain Initial treatment heat 09/17/2015 None neck pain Initial treatment medication 09/17/2015 None edema Onset and Resolution ongoing 05/31/2015 None edema Onset of Symptom _ months ago 05/31/2015 None edema Frequency of Episodes daily 05/31/2015 None edema Pertinent Findings Denies dyspnea 05/31/2015 None dysuria Quality intermit tent 05/31/2015 None dysuria Onset of Symptom 1 weeks ago 05/31/2015 None dysuria Pertinent Findings Denies fever 05/31/2015 None 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 None hypothyroid Pertinent Findings coarse hair 02/05/2015 None hypothyroid Pertinent Findings dry skin 02/05/2015 None hypothyroid Pertinent Findings hair loss 02/05/2015 None edema Quality intermitte nt 02/05/2015 None edema Location on both a nkles 02/05/2015 None edema Location on both l egs 02/05/2015 None hypothyroid Onset and Resolution ongoing 02/05/2015 None edema Onset and Resolution ongoing 02/05/2015 None sinus congestion Onset and Resolution ongoing 02/05/2015 None sinus congestion Onset of Symptom 3 months ago 02/05/2015 None sinus congestion Frequency of Episodes daily 02/05/2015 None sinus congestion Severity moderate 02/05/2015 None sinus congestion Triggers allergens 02/05/2015 None sinus congestion Alleviating Factors medication 02/05/2015 None sinus congestion Exacerbating Factors allergen exposure 02/05/2015 None sinus congestion Pertinent Findings cough 02/05/2015 None sinus congestion Pertinent Findings facial pain 02/05/2015 None sinus congestion Pertinent Findings hoarseness 02/05/2015 None sinus congestion Pertinent Findings nasal crusting 02/05/2015 None sinus congestion Location on both sides 02/05/2015 None sinus congestion Quality fullness 02/05/2015 None sinus congestion Quality constant 02/05/2015 None sinus congestion Quality pressure 02/05/2015 None hypothyroid Severity mil d with subclinical signs 02/05/2015 None hypothyroid Frequency of Episodes unchanged 02/05/2015 None hypothyroid Triggers no known associated factors 02/05/2015 None edema Limitation on Activities does not limit activities 02/05/2015 None edema Frequency of Episodes unchanged 02/05/2015 None edema Timing of Episodes in the evening 02/05/2015 None edema Triggers no known associated factors 02/05/2015 None edema Alleviating Factors rest 02/05/2015 None back pain Location lumba r-sacral spine 11/20/2014 None back pain Quality interm ittent 11/20/2014 None back pain Onset of Symptom _ months ago 11/20/2014 None back pain Pertinent Findings Denies extremity numbness 11/20/2014 None back pain Pertinent Findings Denies extremity weakness 11/20/2014 None 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 P ATIENT, LEVEL IV Diagnosis: Essential (primary) hypertension[ICD10: I10] Diagnosis: Atrophy of thyroid (acquired)[ICD10: E03.4] Diagnosis: Chronic atrial fibrillation[ICD10: I48.2] Diagnosis: Low back pain[ICD10: M54.5] Valerie Pisano MD, [facility] CPT-4: 13228 03/07/2019 ([id number]) 42789 EST. P ATIENT, LEVEL IV Diagnosis: Atrophy of thyroid (acquired)[ICD10: E03.4] Diagnosis: Other fatigue[ICD10: R53.83] Diagnosis: Other hypotension[ICD10: I95.89] Valerie Pisano MD, [facility] CPT-4: 08339 01/31/2019 [id number] EST. PATIENT, LEVEL III Diagnosis: Dysuria[ICD10: R30.0] Roxie Pisano MD, [facility] CPT-4: 82806 01/10/2019 ([id number]) 82231 EST. P ATIENT, LEVEL III Diagnosis: Urinary tract infection, site not specified[ICD10: N39.0] rBielle Pisano MD, [facility] CPT-4: 59339 12/05/2018 ([id number]) 20546 EST. 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 P ATIENT, LEVEL III Diagnosis: Urinary tract infection, site not specified[ICD10: N39.0] Brielle Pisano MD, [facility] CPT-4: 02593 10/27/2018 ([id number]) 79469 EST. 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 P ATIENT, LEVEL IV Diagnosis: Atrophy of thyroid (acquired)[ICD10: E03.4] Diagnosis: Essential (primary) hypertension[ICD10: I10] Diagnosis: Other fatigue[ICD10: R53.83] Diagnosis: Localized edema[ICD10: R60.0] Valerie Pisano MD, [facility] CPT-4: 09702 07/11/2018 ([id number]) 97196 EST. P ATIENT, LEVEL IV Diagnosis: Essential (primary) hypertension[ICD10: I10] Diagnosis: Atrophy of thyroid (acquired)[ICD10: E03.4] Diagnosis: Chronic atrial fibrillation[ICD10: I48.2] Valerie Pisano MD, [facility] CPT-4: 45023 03/24/2018 ([id number]) 80844 EST. P ATIENT, LEVEL IV Diagnosis: Essential (primary) hypertension[ICD10: I10] Diagnosis: Atrophy of thyroid (acquired)[ICD10: E03.4] Diagnosis: Chronic atrial fibrillation[ICD10: I48.2] Valerie Pisano MD, [facility] CPT-4: 71912 11/18/2017 14677 EST. PATIENT, LEVEL IV Diagnosis: Localized edema[ICD10: R60.0] Roxie Pisano MD, [facility] CPT-4: 91996 09/30/2017 ([id number]) 20157 EST. P ATIENT, LEVEL III Diagnosis: Essential (primary) hypertension[ICD10: I10] Valerie Pisano MD, [facility] CPT-4: 34770 08/17/2017 ([id number]) 13844 EST. P ATIENT, LEVEL IV Diagnosis: Essential (primary) hypertension[ICD10: I10] Diagnosis: Atrophy of thyroid (acquired)[ICD10: E03.4] Diagnosis: Chronic atrial fibrillation[ICD10: I48.2] Diagnosis: Cervicalgia[ICD10: M54.2] Diagnosis: Other muscle spasm[ICD10: M62.838] Valerie Pisano MD, [facility] CPT- 4: 49856 06/15/2017 52348 EST. PATIENT, LEVEL III Diagnosis: Laceration without foreign body of other finger without damage to nail, initial encounter[ICD10: S61.218A] Roxie Pisano MD, [facility] CPT-4: 17116 04/01/2017 ([id number]) 25945 EST. 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 [facility]: Chronic atrial fibrillation[ICD10: I48.2] Diagnosis: Essential (primary) hypertension[ICD10: I10] Diagnosis: Other fatigue[ICD10: R53.83] Diagnosis: [facility] (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[ICD10: Z79.01] Diagnosis: Atrophy of thyroid (acquired)[ICD10: E03.4] Valerie Pisano MD, [facility] CPT-4: 28246 02/09/2017 ([id number]) 73241 EST. 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 PATIENT, LEVEL III Diagnosis: Other acute sinusitis[ICD10: J01.80] Diagnosis: Other allergic rhinitis[ICD10: J30.89] Roxie Pisano MD, [facility] CPT-4: 72589 07/31/2016 ([id number]) 30325 EST. [facility] Diagnosis: Acute recurrent maxillary sinusitis[ICD10: J01.01] Valerie Pisano MD, C CPT-4: 81518 07/22/2016 92481 EST. PATIENT, LEVEL IV Diagnosis: Essential (primary) hypertension[ICD10: I10] Diagnosis: Other allergic rhinitis[ICD10: J30.89] Diagnosis: Localized edema[ICD10: R60.0] Roxie Pisano MD, [facility] CPT-4: 08479 05/01/2016 39121 EST. PATIENT, LEVEL III Diagnosis: Cellulitis of left lower limb[ICD10: L03.116] Diagnosis: Localized edema[ICD10: R60.0] Roxie Pisano MD, [facility] CPT-4: 78441 04/06/2016 ([id number]) Miscellaneou s no charge Diagnosis: Cellulitis of left lower limb[ICD10: L03.116] Diagnosis: Localized edema[ICD10: R60.0] Roxie Pisano MD, [facility] CPT-4: 34990 03/10/2016 ([id number]) Miscellaneou s no charge Diagnosis: Cellulitis of left lower limb[ICD10: L03.116] Roxie Pisano MD, [facility] CPT-4: 30070 03/06/2016 61035 EST. PATIENT, LEVEL IV Diagnosis: Cellulitis of left lower limb[ICD10: L03.116] Diagnosis: Localized edema[ICD10: R60.0] Roxie Pisano MD, [facility] CPT-4: 59681 03/03/2016 ([id number]) 08157 EST. P ATIENT, LEVEL III Diagnosis: Essential (primary) hypertension[ICD10: I10] Diagnosis: [facility] (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[ICD10: Z79.01] Diagnosis: Chronic atrial fibrillation[ICD10: I48.2] Brielle Pisano MD, [facility] CPT-4: 92547 02/07/2016 ([id number]) 15507 EST. P ATIENT, LEVEL III Diagnosis: Iliotibial band syndrome, right leg[ICD10: M76.31] Diagnosis: Localized edema[ICD10: R60.0] Brielle Pisano MD, [facility] CPT- 4: 36800 12/13/2015 ([id number]) 94759 EST. P ATIENT, LEVEL III Diagnosis: Localized edema[ICD10: R60.0] Diagnosis: Essential (primary) hypertension[ICD10: I10] Brielle Pisano MD, [facility] CPT-4: 83145 12/03/2015 ([id number]) 05738 EST. P ATIENT, LEVEL IV Diagnosis: [facility] (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[ICD10: Z79.01] Diagnosis: Other skin changes[ICD10: R23.8] Diagnosis: Localized edema[ICD10: R60.0] Diagnosis: Pain in right foot[ICD10: M79.671] Valerie Pisano MD, [facility] CPT- 4: 93726 11/20/2015 94075 EST. PATIENT, LEVEL IV Diagnosis: Essential (primary) hypertension[ICD10: I10] Diagnosis: [facility] (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[ICD10: Z79.01] Diagnosis: Muscle spasm of back[ICD10: M62.830] Roxie Pisano MD, [facility] CPT- 4: 91561 09/17/2015 ([id number]) 89676 EST. P ATIENT, LEVEL IV Diagnosis: Localized edema[ICD10: R60.0] Diagnosis: Other specified hypothyroidism[ICD10: E03.8] Diagnosis: Essential (primary) hypertension[ICD10: I10] Brielle Pisano MD, [facility] CPT-4: 62638 05/31/2015 ([id number]) 00242 EST. P ATIENT, LEVEL III Diagnosis: ALLERGIC RHINITIS[ICD9: 477.9] Diagnosis: ESSENTIAL HYPERTENSION[ICD9: 401.9] Brielle Pisano MD, [facility] CPT-4: 68470 02/05/2015 ([id number]) [facility] - LEVEL 4 Diagnosis: ESSENTIAL HYPERTENSION[ICD9: 401.9] Diagnosis: HYPOTHYROIDISM[ICD9: 244.9] Diagnosis: ACTINIC KERATOSIS[ICD9: 702.0] Valerie Pisano MD, [facility] CPT-4: 91176 11/20/2014 Plan of Care Planned Activity Notes C odes Status Date Visit Plan: Hypertension - well con trolled - continue with current medications, continue with no added salt diet. Pt has been encouraged to exercise daily. The pt has been advised to call the office if there are any acute concerns about change in blood pressure readings at home. Back pain - Sacroiliac joint pain on the right - referral to via [facility] - pt prefers one of the [facility] for therapy Hypothyroidism - pt with chronic hypothyroidism, continue with current medication, will monitor pt to signs or symptoms of lack of adequate supplementation. Pt is to continue with current dose of medication unless directed otherwise. Check labs at regular intervals q 3 months or q 6 months based on previous levels of control. 03/07/2019 Appointment: Valerie Pisano WPtel: [address] [place], [place] [id number] (15 min) Moderate 03/07/2019 Patient Education: Patient Medication Summary Completed 03/07/2019 Patient Education: Hypertension Completed 03/07/2019 Patient Education: Back Pain Completed 03/07/2019 Visit Plan: Hypothyroidism - pt wit h chronic hypothyroidism, continue with current medication, will monitor pt to signs or symptoms of lack of adequate supplementation. Pt is to continue with current dose of medication unless directed otherwise. Check labs at regular intervals q 3 months or q 6 months based on previous levels of control. Hypotension - discussed with patient - with the low blood pressure, I have recommended stopping her lisinopril and to RTC in 6 weeks to re-evaluate her symptoms to see if she needs to stay off of the lisinopril permanently. Edema - Clara has not been elevating her legs above her heart when seated or lying down, nor has she been using her compression socks. I have recommended that she use the socks and elevate her legs - if this does not help and her blood pressure has improved, we will then recommend a low dose diuretic. 01/31/2019 Appointment: Valerie Pisano WPtel: [phone] [facility] (15 min) Moderate 01/31/2019 Patient Education: Patient Medication Summary Completed 01/31/2019 Visit Plan: Dysuria - negative UA - pt is to increase her fluid intake and notify clinic if symptoms do not improve, if they worsen, or with any other changes, questions, or concerns. 01/10/2019 Appointment: Roxie Cazares WPtel: [phone] [phone] (30 min) Complex 01/10/2019 Patient Education: Patient Medication Summary Completed 01/10/2019 Visit Plan: UTI - pt with positive urinalysis - culture sent if appropriate. Antibiotic electronically prescribed to pt's pharmacy of choice. Pt to call if symptoms do not improve. 12/05/2018 Appointment: Brielle Cavazos WPtel: [phone] [phone] [place] (30 min) Complex 12/05/2018 Patient Education: Patient Medication Summary Completed 12/05/2018 Care Plan: Urine Culture Pending 12/05/2018 Visit Plan: Contusion -right lower leg -continue to monitor symptoms -call if does not resolve or other symptoms develop. Patient verbalized understanding of plan. [facility] use of anti coagulants -check PT/INR 11/17/2018 Appointment: Dirk Brielle WPtel: [phone] (30 min) Complex 11/17/2018 Patient Education: Patient Medication Summary Completed 11/17/2018 Visit Plan: UTI - pt with positive urinalysis - culture sent if appropriate. Antibiotic electronically prescribed to pt's pharmacy of choice. Pt to call if symptoms do not improve. 10/27/2018 Appointment[phone] (10 min) Simple 10/27/2018 Patient Education: Patient Medication Summary Completed 10/27/2018 Visit Plan: Hypertension - well con trolled - continue with current medications, continue with no added salt diet. Pt has been encouraged to exercise daily. The pt has been advised to call the office if there are any acute concerns about change in blood pressure readings at home. Hypothyroidism - pt with chronic hypothyroidism, continue with current medication, will monitor pt to signs or symptoms of lack of adequate supplementation. Pt is to continue with current dose of medication unless directed otherwise. Check labs at regular intervals q 3 months or q 6 months based on previous levels of control. Chronic Anticoagulant use - Pt has been counseled about the anticoagulant, need for serial monitoring, and need for the pt to alert the physician as to any new bruising, or acute bleeding. Therapeutic goal for INR is between 2.0 and 3.5. Pt's current coumadin dose is as follows: coumadin 5mg , wednesday and 4mg other days of the week Allergies - chronic - recommended pt to use allergy medication as prescribed. Pt has been counseled as to the appropriate use of the medication. Pt to call if allergy symptoms are not controlled with the medication. Pt advised to start either zyrtec or xyzal - they have the least amount of drowsiness and an over the counter nasal allergy spray - Flonase, Claritin, Nasonex - Nasal spray- use twice daily, one spray per nostril twice daily, after 30 minutes, rinse out nose with saline spray.. Use opposite hand per nostril to spray in the nasal steroid allergy spray. Skin lesion on right lower leg - recommended that she needs to have Dr. Hernandez do a biopsy of the lesion at her next appt - stop use of the creams about 2 weeks prior to her appt with Dr. Hernandez. 09/27/2018 Appointment: Valerie Pisano WPtel: [facility]5 [facility] (15 min) Moderate 09/27/2018 Patient Education: Patient Medication Summary Completed 09/27/2018 Patient Education: Hypertension Completed 09/27/2018 Visit Plan: Hypertension - well con trolled - continue with current medications, continue with no added salt diet. Pt has been encouraged to exercise daily. The pt has been advised to call the office if there are any acute concerns about change in blood pressure readings at home. Sebaceous cyst on scalp - discussed with pt - she will talk to Dr. Hernandez about removal of the cyst when he does colonoscopy. Hypothyroidism - pt with chronic hypothyroidism, continue with current medication, will monitor pt to signs or symptoms of lack of adequate supplementation. Pt is to continue with current dose of medication unless directed otherwise. Check labs at regular intervals q 3 months or q 6 months based on previous levels of control. Atrial Fibrillation - pt on chronic anticoagulation and is currently rate controlled. The pt is to have labs done as appropriate to monitor medication levels and is to report if they start to feel as if their heart rate is becoming uncontrolled. Anti-coag is slightly elevated - decrease coumadin to 4mg daily. 08/16/2018 Appointment: Valerie Pisano WPtel: [facility]5 [facility] (15 min) Moderate 08/16/2018 Patient Education: Patient Medication Summary Completed 08/16/2018 Patient Education: Hypertension Completed 08/16/2018 Patient Education: Patient Medication Summary Completed 07/29/2018 Appointment: Brielle Cavazos WPtel: [facility]2 [phone] [place] (15 min) Moderate 07/12/2018 Visit Plan: Hypertension - well con trolled - continue with current medications, continue with no added salt diet. Pt has been encouraged to exercise daily. The pt has been advised to call the office if there are any acute concerns about change in blood pressure readings at home. Hypothyroidism - pt with chronic hypothyroidism, continue with current medication, will monitor pt to signs or symptoms of lack of adequate supplementation. Pt is to continue with current dose of medication unless directed otherwise. Check labs at regular intervals q 3 months or q 6 months based on previous levels of control. Edema - pt has been advised to elevate legs to prevent dependent edema, compression has been recommended to help to naturally decrease peripheral edema. Diuretic use has been discussed and pt has been instructed in appropriate use of such medication as necessary to further attempt to reduce peripheral edema. Increase lasix to 1.5 tabs bid x 1 wk then go back to one pill twice daily. 07/11/2018 Appointment: [facility]el[phone] (15 min) Moderate 07/11/2018 Patient Education: Patient Medication Summary Completed 07/11/2018 Patient Education: Hypertension Completed 07/11/2018 Patient Education: Patient Medication Summary Completed 07/11/2018 Care Plan: Comp Metabolic Pending 07/11/2018 Care Plan: Tsh Pending 07/11/2018 Care Plan: Free T4 Pending 07/11/2018 Care Plan: Pt Pending 07/11/2018 Patient Education: Patient Medication Summary Completed 06/30/2018 Care Plan: Comp Metabolic Pending 06/30/2018 Visit Plan: Hypertension - well con trolled - continue with current medications, continue with no added salt diet. Pt has been encouraged to exercise daily. The pt has been advised to call the office if there are any acute concerns about change in blood pressure readings at home. Hypothyroidism - pt with chronic hypothyroidism, continue with current medication, will monitor pt to signs or symptoms of lack of adequate supplementation. Pt is to continue with current dose of medication unless directed otherwise. Check labs at regular intervals q 3 months or q 6 months based on previous levels of control. Atrial F ibrillation - pt on chronic anticoagulation and is currently rate controlled. The pt is to have labs done as appropriate to monitor medication levels and is to report if they start to feel as if their heart rate is becoming uncontrolled. High dose flu shot given today due to multiple comorbid conditions and advanced age Pneumovax 23 given today. 03/24/2018 Appointment: [facility] P[facility]ano [facility]Ptel[phone] (15 min) Moderate 03/24/2018 Patient Education: Patient Medication Summary Completed 03/24/2018 Patient Education: Hypertension Completed 03/24/2018 Visit Plan: Hypertension - well con trolled - continue with current medications, continue with no added salt diet. Pt has been encouraged to exercise daily. The pt has been advised to call the office if there are any acute concerns about change in blood pressure readings at home. Atrial Fibrillation - pt on chronic anticoagulation and is currently rate controlled. The pt is to have labs done as appropriate to monitor medication levels and is to report if they start to feel as if their heart rate is becoming uncontrolled. pt currently taking one coumadin daily Hypothyroidism - pt with chronic hypothyroidism, continue with current medication, will monitor pt to signs or symptoms of lack of adequate supplementation. Pt is to continue with current dose of medication unless directed otherwise. Check labs at regular intervals wither q 3 months or q 6 months based on previous levels of control. 11/18/2017 Appointment: Valerie Pisano WPtel: 101[address] [facility] (15 min) Moderate 11/18/2017 Patient Education: Patient Medication Summary Completed 11/18/2017 Referral: [facility] WPtel: 1 [id number] Pt notified at appointment Appointment Confirmed 10/01/2017 Visit Plan: Edema - pt has been adv ised to elevate legs to prevent dependent edema, compression has been recommended to help to naturally decrease peripheral edema. Diuretic use has been discussed and pt has been i nstructed in appropriate use of such medication as necessary to further attempt to reduce peripheral edema. Will refer to wound care for possible Unna Boots 09/30/2017 Appointment: [facility]el[phone] (30 min) Complex 09/30/2017 Patient Education: Patient Medication Summary Completed 09/30/2017 Care Plan: Referral Order SNOMED-CT : [id number] Pending 09/30/2017 Visit Plan: Hypertension - well con trolled - continue with current medications, continue with no added salt diet. Pt has been encouraged to exercise daily. The pt has been advised to call the office if there are any acute concerns about change in blood pressure readings at home. Sinus congestion - improved - continue with supportive care at this time. 08/17/2017 Appointment: Valerie Pisano WPtel: [facility]5 [facility] (15 min) Moderate 08/17/2017 Patient Education: Patient Medication Summary Completed 08/17/2017 Visit Plan: Hypertension - well con trolled - continue with current medications, continue with no added salt diet. Pt has been encouraged to exercise daily. The pt has been advised to call the office if there are any acute concerns about change in blood pressure readings at home. Hypothyroidism - pt with chronic hypothyroidism, continue with current medication, will monitor pt to signs or symptoms of lack of adequate supplementation. Pt is to continue with current dose of medication unless directed otherwise. Check labs at regular intervals wither q 3 months or q 6 months based on previous levels of control. A trial Fibrillation - pt on chronic anticoagulation and is currently rate controlled. The pt is to have labs done as appropriate to monitor medication levels and is to report if they start to feel as if their heart rate is becoming uncontrolled. Neck pain, cervicalgia - recommended physical therapy - will refer to [facility]. RX for voltaren to neck muscles. allergies - kenalog 40mg im [employer] - lot # [id number] expires september 2018 06/15/2017 Visit Plan: Hypertension - well con trolled - continue with current medications, continue with no added salt diet. Pt has been encouraged to exercise daily. The pt has been advised to call the office if there are any acute concerns about change in blood pressure readings at home. Hypothyroidism - pt with chronic hypothyroidism, continue with current medication, will monitor pt to signs or symptoms of lack of adequate supplementation. Pt is to continue with current dose of medication unless directed otherwise. Check labs at regular intervals wither q 3 months or q 6 months based on previous levels of control. A trial Fibrillation - pt on chronic anticoagulation and is currently rate controlled. The pt is to have labs done as appropriate to monitor medication levels and is to report if they start to feel as if their heart rate is becoming uncontrolled. Neck pain, cervicalgia - recommended physical therapy - will refer to [facility]. RX for voltaren to neck muscles. 06/15/2017 Appointment: Valerie Pisano WPtel: [facility]5 [facility] (15 min) Moderate 06/15/2017 Patient Education: Patient Medication Summary Completed 06/15/2017 Care Plan: Referral Order SNOMED-CT : [id number] Pending 06/15/2017 Appointment: Nurse Visit 04/05/2017 Appointment: Nurse Visit 04/02/2017 Visit Plan: Laceration of left inde x finger approximately 2 cm long and 1 mm deep - wound cleaned and debrided - ROSLYN and steri strips applied - pt is to return to clinic tomorrow for dressing change and wound check . Abx sent, pt is to check PT/INR on Wednesday. Pt given script for tetanus booster. 04/01/2017 Appointment: Roxie Cazares WPtel: [phone] [id number] (15 min) Moderate 04/01/2017 Patient Education: Patient Medication Summary Completed 04/01/2017 Patient Education: Obesity Completed 04/01/2017 Visit Plan: Atrial Fibrillation - p t on chronic anticoagulation and is currently rate controlled. The pt is to have labs done as appropriate to monitor medication levels and is to report if they start to feel as if their heart rate is becoming uncontrolled. pt currently taking one coumadin daily Hypothyroidism - pt with chronic hypothyroidism, continue with current medication, will monitor pt to signs or symptoms of lack of adequate supplementation. Pt is to continue with current dose of medication unless directed otherwise. Check labs at regular intervals wither q 3 months or q 6 months based on previous levels of control. prevnar and flu shot today 03/16/2017 Appointment: Valerie Pisano WPtel: [phone] [facility] (15 min) Moderate 03/16/2017 Patient Education: Patient Medication Summary Completed 03/16/2017 Patient Education: Obesity Completed 03/16/2017 Visit Plan: Hypertension - well con trolled - continue with current medications, continue with no added salt diet. Pt has been encouraged to exercise daily. The pt has been advised to call the office if there are any acute concerns about change in blood pressure readings at home. on the diltiazem - take 1/2 pill AM, full pill noon, 1/2 pill supper, full pill bedtime - Atrial Fibrillation - pt on chronic anticoagulation and is currently rate controlled. The pt is to have labs done as appropriate to monitor medication levels and is to report if they start to feel as if their heart rate is becoming uncontrolled. Skin cancer of face - efudex - cream to lesions on face and arm - use twice daily x 10 days - you will have open sores on your face and then use neosporin on the lesions to help augment healing Hypothyroidism - pt with chronic hypothyroidism, continue with current medication, will monitor pt to signs or symptoms of lack of adequate supplementation. Pt is to continue with current dose of medication unless directed otherwise. Check labs at regular intervals wither q 3 months or q 6 months based on previous levels of control. 1 pill wed/wed/wed, 1/2 pill //sat/sun take - This is a new order for your thyroid medication - we will repeat your labs in 3 months to check on your thyroid levels Nasal spray- use twice daily, one spray per nostril twice daily, after 30 minutes, rinse out nose with saline spray.. Use opposite hand per nostril to spray in the nasal steroid allergy spray. 02/09/2017 Appointment: Valerie Pisano WPtel: [address] [place], [place] [address] (15 min) Moderate 02/09/2017 Patient Education: Patient Medication Summary Completed 02/09/2017 Patient Education: Obesity Completed 02/09/2017 Patient Education: Hypertension Completed 02/09/2017 Patient Education: Patient Medication Summary Completed 01/25/2017 Visit Plan: Hypertension - well con trolled - continue with current medications, continue with no added salt diet. Pt has been encouraged to exercise daily. The pt has been advised to call the office if there are any acute concerns about change in blood pressure readings at home. Atrial Fibrillation - pt on chronic anticoagulation and is currently rate controlled. The pt is to have labs done as appropriate to monitor medication levels and is to report if they start to feel as if their heart rate is becoming uncontrolled. Chronic Anticoagulant use - Pt has been counseled about the anticoagulant, need for serial monitoring, and need for the pt to alert the physician as to any new bruising, or acute bleeding. Therapeutic goal for INR is between 2.0 and 3.5. Tinea of leg - rx for nystatin 10/13/2016 Appointment: Valerie Pisano WPtel: [phone] [facility] (15 min) Moderate 10/13/2016 Patient Education: Patient Medication Summary Completed 10/13/2016 Patient Education: Obesity Completed 10/13/2016 Patient Education: Hypertension Completed 10/13/2016 Care Plan: Urine Culture Pending 08/31/2016 Appointment: Roxie Cazares WPtel: [facility]0 [facility] Lab Draw 08/27/2016 Appointment: Nurse Visit 08/26/2016 Patient Education: Patient Medication Summary Completed 08/26/2016 Visit Plan: Sinusitis - Pt has acut e infection - pain in face, maxillary region, Pt informed to use decongestant, RX given to patient, sinus rinses also recommended. Call if symptoms do not show improvement. Allerg ies - chronic - recommended pt to use allergy medication as prescribed. Pt has been counseled as to the appropriate use of the medication. Pt to call if allergy symptoms are not controlled with the medication. If using nasal spray, instructions as follows: Nasal spray- use twice daily, one spray per nostril twice daily, after 30 minutes, rinse out nose with saline spray.. Use opposite hand per nostril to spray in the nasal steroid allergy spray. 07/31/2016 Appointment: Bri[facility] Cavazos [facility]Ptel[phone] (30 min) Complex 07/31/2016 Patient Education: Patient Medication Summary Completed 07/31/2016 Patient Education: Obesity Completed 07/31/2016 Visit Plan: Sinusitis - Pt has acut e infection - pain in face, maxillary region, Pt informed to use decongestant, RX given to patient, sinus rinses also recommended. Call if symptoms do not show improvement. 07/22/2016 Appointment: Valerie Pisano WPtel: [facility]7 [facility] (15 min) Moderate 07/22/2016 Patient Education: Patient Medication Summary Completed 07/22/2016 Patient Education: Obesity Completed 07/22/2016 Visit Plan: Allergies - chronic - r ecommended pt to use allergy medication as prescribed. Pt has been counseled as to the appropriate use of the medication. Pt to call if allergy symptoms are not controlled with th e medication. If using nasal spray, instructions as follows: Nasal spray- use twice daily, one spray per nostril twice daily, after 30 minutes, rinse out nose with saline spray.. Use opposite hand per nostril to spray in the nasal steroid allergy spray. Hypertension - well controlled - continue with current medications, continue with no added salt diet. Pt has been encouraged to exercise daily. The pt has been advised to call the office if there are any acute concerns about change in blood pressure readings at home. Edema - pt has been advised to elevate legs to prevent dependent edema, compression has been recommended to help to naturally decrease peripheral edema. Diuretic use has been discussed and pt has been instructed in appropriate use of such medication as necessary to further attempt to reduce peripheral edema. 05/01/2016 Appointment: Brielle Cavazos WPtel: [facility]9 [phone] (30 min) Complex 05/01/2016 Patient Education: Patient Medication Summary Completed 05/01/2016 Patient Education: Obesity Completed 05/01/2016 Patient Education: Hypertension Completed 05/01/2016 Visit Plan: Cellulitis - continue w ith oral antibiotics as previously directed, return to clinic as previously directed, call for acute change in symptoms, worsening redness, warmth, discharge. Edema - pt has been advised to elevate legs to prevent dependent edema, compression has been recommended to help to naturally decrease peripheral edema. Diuretic use has been discussed and pt has been instructed in appropriate use of such medication as necessary to further attempt to reduce peripheral edema. 04/06/2016 Appointment: Roxie Cazares WPtel: [facility]5 [facility] (30 min) Complex 04/06/2016 Patient Education: Patient Medication Summary Completed 04/06/2016 Patient Education: Obesity Completed 04/06/2016 Visit Plan: left foot - improved - pt finished with antibiotics - continue to monitor - notify clinic with any concerns. Repeat INR today. 03/10/2016 Appointment: Brielle Cavazos WPtel: [facility]8 [phone] (30 min) Complex 03/10/2016 Patient Education: Patient Medication Summary Completed 03/10/2016 Visit Plan: Cellulitis - continue w ith oral antibiotics as previously directed, return to clinic as previously directed, call for acute change in symptoms, worsening redness, warmth, discharge. 03/06/2016 Appointment: Brielle Cavazos WPtel: [facility]5 [phone] (15 min) Moderate 03/06/2016 Patient Education: Patient Medication Summary Completed 03/06/2016 Patient Education: Obesity Completed 03/06/2016 Visit Plan: Cellulitis - continue w [facility] oral antibiotics as previously directed, return to clinic as previously directed, call for acute change in symptoms, worsening redness, warmth, discharge. 03/03/2016 Appointment: Brielle Cavazos WPtel: [facility]5 [phone] (15 min) Moderate 03/03/2016 Patient Education: Patient Medication Summary Completed 03/03/2016 Patient Education: Obesity Completed 03/03/2016 Patient Education: Patient Medication Summary Completed 02/14/2016 Patient Education: Patient Medication Summary Completed 02/12/2016 Visit Plan: Hypertension - well con trolled - continue with current medications, continue with no added salt diet. Pt has been encouraged to exercise daily. The pt has been advised to call the office if there are any acute concerns about change in blood pressure readings at home. Atrial Fibrillation - pt on chronic anticoagulation and is currently rate controlled. The pt is to have labs done as appropriate to monitor medication levels and is to report if they start to feel as if their heart rate is becoming uncontrolled. Chronic Anticoagulant use - Pt has been counseled about the anticoagulant, need for serial monitoring, and need for the pt to alert the physician as to any new bruising, or acute bleeding. Therapeutic goal for INR is between 2.0 and 3.5. 02/07/2016 Appointment: Brielle Cavazos WPtel: [facility]5 [phone] (30 min) Complex 02/07/2016 Patient Education: Patient Medication Summary Completed 02/07/2016 Patient Education: Obesity Completed 02/07/2016 Patient Education: Hypertension Completed 02/07/2016 Appointment: Brielle Cavazos WPtel: [address] [place], [place] [phone] (30 min) Complex 02/04/2016 Visit Plan: Iliotibial band syndrom e- recommended use of anti-inflammatories and pt given handout on Iliotibial band exercises. Refer for PT Edema - pt has been advised to elevate legs to prevent dependent edema, c ompression has been recommended to help to naturally decrease peripheral edema. Diuretic use has been discussed and pt has been instructed in appropriate use of such medication as necessary to further attempt to reduce peripheral edema. 12/13/2015 Appointment: Brielle Cavazos WPtel: [facility]5 [phone] (15 min) Moderate 12/13/2015 Patient Education: Patient Medication Summary Completed 12/13/2015 Patient Education: Obesity Completed 12/13/2015 Visit Plan: Edema - pt has been adv ised to elevate legs to prevent dependent edema, compression has been recommended to help to naturally decrease peripheral edema. Diuretic use has been discussed and pt has been i nstructed in appropriate use of such medication as necessary to further attempt to reduce peripheral edema. Hypertension - well controlled - continue with current medications, continue with no added salt diet. Pt has been encouraged to exercise daily. The pt has been advised to call the office if there are any acute concerns about change in blood pressure readings at home. 12/03/2015 Appointment: Brielle Cavazos WPtel: [facility]5 [phone] (30 min) Complex 12/03/2015 Patient Education: Patient Medication Summary Completed 12/03/2015 Patient Education: Obesity Completed 12/03/2015 Visit Plan: Edema - pt has been adv ised to elevate legs to prevent dependent edema, compression has been recommended to help to naturally decrease peripheral edema. Diuretic use has been discussed and pt has been i nstructed in appropriate use of such medication as necessary to further attempt to reduce peripheral edema. Bruising/Ecchymosis - recommended to have pt/inr checked, call if bruising does not improve. 11/20/2015 Patient Education: Patient Medication Summary Completed 11/20/2015 Patient Education: Obesity Completed 11/20/2015 Care Plan: Cbc With Differential Pending 11/20/2015 Care Plan: Pt Pending 11/20/2015 Care Plan: Uric Acid Pending 11/20/2015 Visit Plan: Allergies - chronic - r ecommended pt to use allergy medication as prescribed. Pt has been counseled as to the appropriate use of the medication. Pt to call if allergy symptoms are not controlled with th e medication. If using nasal spray, instructions as follows: Nasal spray- use twice daily, one spray per nostril twice daily, after 30 minutes, rinse out nose with saline spray.. Use opposite hand per nostril to spray in the nasal steroid allergy spray. Chronic Anticoagulant use - Pt has been counseled about the anticoagulant, need for serial monitoring, and need for the pt to alert the physician as to any new bruising, or acute bleeding. Therapeutic goal for INR is between 2.0 and 3.5. Back pain - the patient was counseled to always first attempt to use modalities other than pain medication for alleviation of the muscle spasms and pain. Pt states that she has a muscle relaxant at home, but she was not sure she should be using it. Pt is to try the muscle relaxant and tiger balm. Recommended for the pt to go get a massage also. Pt is to use medication as directed. Notify clinic if symptoms do not improve, if they worsen, or with any concerns. 09/17/2015 Appointment: (30 min) Complex 09/17/2015 Patient Education: Patient Medication Summary Completed 09/17/2015 Patient Education: Obesity Completed 09/17/2015 Patient Education: Hypertension Completed 09/17/2015 Patient Education: Patient Medication Summary Completed 08/26/2015 Patient Education: Patient Medication Summary Completed 08/22/2015 Visit Plan: Edema - pt has been adv ised to elevate legs to prevent dependent edema, compression has been recommended to help to naturally decrease peripheral edema. Diuretic use has been discussed and pt has been i nstructed in appropriate use of such medication as necessary to further attempt to reduce peripheral edema. Hypothyroidism - pt with chronic hypothyroidism, continue with current medication, will monitor pt to signs or symptoms of lack of adequate supplementation. Pt is to continue with current dose of medication unless directed otherwise. Check labs at regular intervals wither q 3 months or q 6 months based on previous levels of control. Hypertension - well controlled - continue with current medications, continue with no added salt diet. Pt has been encouraged to exercise daily. The pt has been advised to call the office if there are any acute concerns about change in blood pressure readings at home. 05/31/2015 Appointment: (30 min) Complex 05/31/2015 Patient Education: Patient Medication Summary Completed 05/31/2015 Patient Education: Hypertension Completed 05/31/2015 Appointment: (30 min) Complex 05/30/2015 Visit Plan: Hypertension - well con trolled - continue with current medications, continue with no added salt diet. Pt has been encouraged to exercise daily. The pt has been advised to call the office if there are any acute concerns about change in blood pressure readings at home. Allergies - chronic - recommended pt to use allergy medication as prescribed. Pt has been counseled as to the appropriate use of the medication. Pt to call if allergy symptoms are not controlled with the medication. If using nasal spray, instructions as follows: Nasal spray- use twice daily, one spray per nostril twice daily, after 30 minutes, rinse out nose with saline spray.. Use opposite hand per nostril to spray in the nasal steroid allergy spray. Kenalog injection today in the office. 02/05/2015 Appointment: (15 min) Moderate 02/05/2015 Patient Education: Patient Medication Summary Completed 02/05/2015 Patient Education: Hypertension Completed 02/05/2015 Appointment: Valerie Pisano WPtel: [id number] (15 min) Moderate 01/29/2015 Visit Plan: Hypertension - well con trolled - continue with current medications, continue with no added salt diet. Pt has been encouraged to exercise daily. The pt has been advised to call the office if there are any acute concerns about change in blood pressure readings at home. Actinic kertosis - recommended pt to use neosporin on the lesions on face/neck. Hypothyroidism - pt with chronic hypothyroidism, continue with current medication, will monitor pt to signs or symptoms of lack of adequate supplementation. Pt is to continue with current dose of medication unless directed otherwise. Check labs at regular intervals wither q 3 months or q 6 months based on previous levels of control. 11/20/2014 Appointment: Valerie Pisano WPtel: [phone] [facility] [place] (S) New Patient 11/20/2014 Patient Education: Patient Medication Summary Completed 11/20/2014 Patient Education: Hypertension Completed 11/20/2014 Patient Education: Patient Medication Summary Completed 10/19/2014 Referral: [facility] WPtel: Referral Appointment Requested Referral: [facility] WPtel: [address] [place] [id number] Referral Appointment Confirmed Instructions Comment . Edema - pt has bee n advised to elevate legs to prevent dependent edema, compression has been recommended to help to naturally decrease peripheral edema. Diuretic use has been discussed and pt has been instructed in appropriate use of such medication as necessary to further attempt to reduce peripheral edema. Bruising/Ecchymosis - recommended to have pt/inr checked, call if bruising does not improve. . Hypertension - wel l controlled - continue with current medications, continue with no added salt diet. Pt has been encouraged to exercise daily. The pt has been advised to call the office if there are any acute concerns about change in blood pressure readings at home. Hypothyroidism - pt with chronic hypothyroidism, continue with current medication, will monitor pt to signs or symptoms of lack of adequate supplementation. Pt is to continue with current dose of medication unless directed otherwise. Check labs at regular intervals q 3 months or q 6 months based on previous levels of control. Edema - pt has been advised to elevate legs to prevent dependent edema, compression has been recommended to help to naturally decrease peripheral edema. Diuretic use has been discussed and pt has been instructed in appropriate use of such medication as necessary to further attempt to reduce peripheral edema. Increase lasix to 1.5 tabs bid x 1 wk then go back to one pill twice daily. . Hypertension - wel l controlled - continue with current medications, continue with no added salt diet. Pt has been encouraged to exercise daily. The pt has been advised to call the office if there are any acute concerns about change in blood pressure readings at home. Atrial Fibrillation - pt on chronic anticoagulation and is currently rate controlled. The pt is to have labs done as appropriate to monitor medication levels and is to report if they start to feel as if their heart rate is becoming uncontrolled. pt currently taking one coumadin daily Hypothyroidism - pt with chronic hypothyroidism, continue with current medication, will monitor pt to signs or symptoms of lack of adequate supplementation. Pt is to continue with current dose of medication unless directed otherwise. Check labs at regular intervals wither q 3 months or q 6 months based on previous levels of control. . Edema - pt has bee n advised to elevate legs to prevent dependent edema, compression has been recommended to help to naturally decrease peripheral edema. Diuretic use has been discussed and pt has been instructed in appropriate use of such medication as necessary to further attempt to reduce peripheral edema. Will refer to wound care for possible [place] . Dysuria - negative UA - pt is to increase her fluid intake and notify clinic if symptoms do not improve, if they worsen, or with any other changes, questions, or concerns. hold the lisinopril until you get back from your trip and come back to the office to be seen. . Hypothyroidism - pt with chronic hypot hyroidism, continue with current medication, will monitor pt to signs or symptoms of lack of adequate supplementation. Pt is to continue with current dose of medication unless directed otherwise. Check labs at regular intervals q 3 months or q 6 months based on previous levels of control. Hypotension - discussed with patient - with the low blood pressure, I have recommended stopping her lisinopril and to RTC in 6 weeks to re-evaluate her symptoms to see if she needs to stay off of the lisinopril permanently. Edema - Clara has not been elevating her legs above her heart when seated or lying down, nor has she been using her compression socks. I have recommended that she use the socks and elevate her legs - if this does not help and her blood pressure has improved, we will then recommend a low dose diuretic. Check your PT INR on Wednesday or . . Cellulitis - continue with oral antibiotics as previously directed, return to clinic as previously directed, call for acute change in symptoms, worsening redness, warmth, discharge. Edema - pt has been advised to elevate legs to prevent dependent edema, compression has been recommended to help to naturally decrease peripheral edema. Diuretic use has been discussed and pt has been instructed in appropriate use of such medication as necessary to further attempt to reduce peripheral edema. . Hypertension - wel l controlled - continue with current medications, continue with no added salt diet. Pt has been encouraged to exercise daily. The pt has been advised to call the office if there are any acute concerns about change in blood pressure readings at home. Hypothyroidism - pt with chronic hypothyroidism, continue with current medication, will monitor pt to signs or symptoms of lack of adequate supplementation. Pt is to continue with current dose of medication unless directed otherwise. Check labs at regular intervals q 3 months or q 6 months based on previous levels of control. Atrial Fibrillation - pt on chronic anticoagulation and is currently rate controlled. The pt is to have labs done as appropriate to monitor medication levels and is to report if they start to feel as if their heart rate is becoming uncontrolled. High dose flu shot given today due to multiple comorbid conditions and advanced age Pneumovax 23 given today. . Atrial Fibrillatio n - pt on chronic anticoagulation and is currently rate controlled. The pt is to have labs done as appropriate to monitor medication levels and is to report if they start to feel as if their heart rate is becoming uncontrolled. pt currently taking one coumadin daily Hypothyroidism - pt with chronic hypothyroidism, continue with current medication, will monitor pt to signs or symptoms of lack of adequate supplementation. Pt is to continue with current dose of medication unless directed otherwise. Check labs at regular intervals wither q 3 months or q 6 months based on previous levels of control. prevnar and flu shot today . Hypertension - wel l controlled - continue with current medications, continue with no added salt diet. Pt has been encouraged to exercise daily. The pt has been advised to call the office if there are any acute concerns about change in blood pressure readings at home. Sinus congestion - improved - continue with supportive care at this time. 1 pill wed/wed/wed, 1/2 pill //sat/sun take - This is a new order for your thyroid medication - we will repeat your labs in 3 months to check on your thyroid levels Nasal spray- use twice daily, one spray per nostril twice daily, after 30 minutes, rinse out nose with saline spray.. Use opposite hand per nostril to spray in the nasal steroid allergy spray. on the diltiazem - take 1/2 pill AM, full pill noon, 1/2 pill supper, full pill bedtime - efudex - cream to lesions on face and arm - use twice daily x 10 days - you will have open sores on your face and then use neosporin on the lesions to help augment healing . Hypertension - well controlled - daylin nue with current medications, continue with no added salt diet. Pt has been encouraged to exercise daily. The pt has been advised to call the office if there are any acute concerns about change in blood pressure readings at home. on the diltiazem - take 1/2 pill AM, full pill noon, 1/2 pill supper, full pill bedtime - Atrial Fibrillation - pt on chronic anticoagulation and is currently rate controlled. The pt is to have labs done as appropriate to monitor medication levels and is to report if they start to feel as if their heart rate is becoming uncontrolled. Skin cancer of face - efudex - cream to lesions on face and arm - use twice daily x 10 days - you will have open sores on your face and then use neosporin on the lesions to help augment healing Hypothyroidism - pt with chronic hypothyroidism, continue with current medication, will monitor pt to signs or symptoms of lack of adequate supplementation. Pt is to continue with current dose of medication unless directed otherwise. Check labs at regular intervals wither q 3 months or q 6 months based on previous levels of control. 1 pill wed/wed/wed, 1/2 pill // wed/sun take - This is a new order for your thyroid medication - we will repeat your labs in 3 months to check on your thyroid levels Nasal spray- use twice daily, one spray per nostril twice daily, after 30 minutes, rinse out nose with saline spray.. Use opposite hand per nostril to spray in the nasal steroid allergy spray. Monitor your blood p ressure at home and record. Bring in your readings to your next appointment, or as directed. Call for chest pain, shortness of breath, headaches, or other concerns. . Hypertension - well controlled - daylin nue with current medications, continue with no added salt diet. Pt has been encouraged to exercise daily. The pt has been advised to call the office if there are any acute concerns about change in blood pressure readings at home. Actinic kertosis - recommended pt to use neosporin on the lesions on face/neck. Hypothyroidism - pt with chronic hypothyroidism, continue with current medication, will monitor pt to signs or symptoms of lack of adequate supplementation. Pt is to continue with current dose of medication unless directed otherwise. Check labs at regular intervals wither q 3 months or q 6 months based on previous levels of control. . Hypertension - wel l controlled - continue with current medications, continue with no added salt diet. Pt has been encouraged to exercise daily. The pt has been advised to call the office if there are any acute concerns about change in blood pressure readings at home. Allergies - chronic - recommended pt to use allergy medication as prescribed. Pt has been counseled as to the appropriate use of the medication. Pt to call if allergy symptoms are not controlled with the medication. If using nasal spray, instructions as follows: Nasal spray- use twice daily, one spray per nostril twice daily, after 30 minutes, rinse out nose with saline spray.. Use opposite hand per nostril to spray in the nasal steroid allergy spray. Kenalog injection today in the office. . Contusion -right l ower leg -continue to monitor symptoms - call if does not resolve or other symptoms develop. Patient verbalized understanding of plan. 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 Hypertension - wel l controlled - continue with current medications, continue with no added salt diet. Pt has been encouraged to exercise daily. The pt has been advised to call the office if there are any acute concerns about change in blood pressure readings at home. Back pain - Sacroiliac joint pain on the right - referral to [facility] - pt prefers one of the [facility] for therapy Hypothyroidism - pt with chronic hypothyroidism, continue with current medication, will monitor pt to signs or symptoms of lack of adequate supplementation. Pt is to continue with current dose of medication unless directed otherwise. Check labs at regular intervals q 3 months or q 6 months based on previous levels of control. get blood work one w [place] before next appt - fasting labs Decrease to 2.5mg (1/2 tab) on Tuesdays/Fridays and 5mg other days Recheck PT/INR in 1 week . Hypertension - well controlled - daylin nue with current medications, continue with no added salt diet. Pt has been encouraged to exercise daily. The pt has been advised to call the office if there are any acute concerns about change in blood pressure readings at home. Atrial Fibrillation - pt on chronic anticoagulation and is currently rate controlled. The pt is to have labs done as appropriate to monitor medication levels and is to report if they start to feel as if their heart rate is becoming uncontrolled. Chronic Anticoagulant use - Pt has been counseled about the anticoagulant, need for serial monitoring, and need for the pt to alert the physician as to any new bruising, or acute bleeding. Therapeutic goal for INR is between 2.0 and 3.5. Tinea of leg - rx for nystatin . Laceration of left index finger approximately 2 cm long and 1 mm deep - wound cleaned and debrided - ROSLYN and steri strips applied - pt is to return to clinic tomorrow for dressing change and wound check. Abx sent, pt is to check PT/INR on Wednesday. Pt given script for tetanus booster. . left foot - improv ed - pt finished with antibiotics - continue to monitor - notify clinic with any concerns. Repeat INR today. CHECK LABS TODAY-WE WILL CALL YOU AFTER LOOKING AT THE LABS TO DISCUSS WHAT TO DO WITH YOUR LASIX . Edema - pt has been advised to elevate legs to prevent dependent edema, compression has been recommended to help to naturally decrease peripheral edema. Diuretic use has been discussed and pt has been instructed in appropriate use of such medication as necessary to further attempt to reduce peripheral edema. Hypothyroidism - pt with chronic hypothyroidism, continue with current medication, will monitor pt to signs or symptoms of lack of adequate supplementation. Pt is to continue with current dose of medication unless directed otherwise. Check labs at regular intervals wither q 3 months or q 6 months based on previous levels of control. Hypertension - well controlled - continue with current medications, continue with no added salt diet. Pt has been encouraged to exercise daily. The pt has been advised to call the office if there are any acute concerns about change in blood pressure readings at home. . UTI - pt with posi tive urinalysis - culture sent if appropriate. Antibiotic electronically prescribed to pt's pharmacy of choice. Pt to call if symptoms do not improve. . Sinusitis - Pt has acute infection - pain in face, maxillary region, Pt informed to use decongestant, RX given to patient, sinus rinses also recommended. Call if symptoms do not show improvement. Allergies - chronic - recommended pt to use allergy medication as prescribed. Pt has been counseled as to the appropriate use of the medication. Pt to call if allergy symptoms are not controlled with the medication. If using nasal spray, instructions as follows: Nasal spray- use twice daily, one spray per nostril twice daily, after 30 minutes, rinse out nose with saline spray.. Use opposite hand per nostril to spray in the nasal steroid allergy spray. ROCEPHIN INJECTION T SAMIR . UTI - pt with positive urinalysis - cu lture sent if appropriate. Antibiotic electronically prescribed to pt's pharmacy of choice. Pt to call if symptoms do not improve. check coumadin level on wednesday Nasal spray- use twice daily, one spray per nostril twice daily, after 30 minutes, rinse out nose with saline spray.. Use opposite hand per nostril to spray in the nasal steroid allergy spray.DX sinusitis - discussed expected course with the patient, pt advised to call for worsening symptoms, or lack of improvement on prescribed treatment course. . Sinusitis - Pt has acute infection - p ain in face, maxillary region, Pt informed to use decongestant, RX given to patient, sinus rinses also recommended. Call if symptoms do not show improvement. . Hypertension - wel l controlled - continue with current medications, continue with no added salt diet. Pt has been encouraged to exercise daily. The pt has been advised to call the office if there are any acute concerns about change in blood pressure readings at home. Hypothyroidism - pt with chronic hypothyroidism, continue with current medication, will monitor pt to signs or symptoms of lack of adequate supplementation. Pt is to continue with current dose of medication unless directed otherwise. Check labs at regular intervals wither q 3 months or q 6 months based on previous levels of control. Atrial Fibrillation - pt on chronic anticoagulation and is currently rate controlled. The pt is to have labs done as appropriate to monitor medication levels and is to report if they start to feel as if their heart rate is becoming uncontrolled. Neck pain, cervicalgia - recommended physical therapy - will refer to [facility]. RX for voltaren to neck muscles. allergies - kenalog 40mg im [employer] - lot # [id number] expires september 2018 . Hypertension - wel l controlled - continue with current medications, continue with no added salt diet. Pt has been encouraged to exercise daily. The pt has been advised to call the office if there are any acute concerns about change in blood pressure readings at home. Hypothyroidism - pt with chronic hypothyroidism, continue with current medication, will monitor pt to signs or symptoms of lack of adequate supplementation. Pt is to continue with current dose of medication unless directed otherwise. Check labs at regular intervals wither q 3 months or q 6 months based on previous levels of control. Atrial Fibrillation - pt on chronic anticoagulation and is currently rate controlled. The pt is to have labs done as appropriate to monitor medication levels and is to report if they start to feel as if their heart rate is becoming uncontrolled. Neck pain, cervicalgia - recommended physical therapy - will refer to [facility]. RX for voltaren to neck muscles. Decrease to 2.5mg (1 /2 tab) on Tuesdays/Fridays and 5mg other days Recheck PT/INR in 1 week . Hypertension - well controlled - daylin nue with current medications, continue with no added salt diet. Pt has been encouraged to exercise daily. The pt has been advised to call the office if there are any acute concerns about change in blood pressure readings at home. Atrial Fibrillation - pt on chronic anticoagulation and is currently rate controlled. The pt is to have labs done as appropriate to monitor medication levels and is to report if they start to feel as if their heart rate is becoming uncontrolled. Chronic Anticoagulant use - Pt has been counseled about the anticoagulant, need for serial monitoring, and need for the pt to alert the physician as to any new bruising, or acute bleeding. Therapeutic goal for INR is between 2.0 and 3.5. Increase Lasix to tw ice a day for 5 days. Take an extra potassium with it. . Iliotibial band syndrome- recommended use of anti-inflammatories and pt given handout on Iliotibial band exercises. Refer for PT Edema - pt has been advised to elevate legs to prevent dependent edema, compression has been recommended to help to naturally decrease peripheral edema. Diuretic use has been discussed and pt has been instructed in appropriate use of such medication as necessary to further attempt to reduce peripheral edema. claritin 10mg, or al legra 180mg, or zyrtec 10mg, or xyzal 5mg - these are all the over the counter allergy medications available. my recommendation would be to start with zyrtec or xyzal - they have the least amount of drowsiness over the counter nasal allergy spray - Flonase, Claritin, Nasonex - Nasal spray- use twice daily, one spray per nostril twice daily, after 30 minutes, rinse out nose with saline spray.. Use opposite hand per nostril to spray in the nasal steroid allergy spray. . Hypertension - well controlled - daylin nue with current medications, continue with no added salt diet. Pt has been encouraged to exercise daily. The pt has been advised to call the office if there are any acute concerns about change in blood pressure readings at home. Hypothyroidism - pt with chronic hypothyroidism, continue with current medication, will monitor pt to signs or symptoms of lack of adequate supplementation. Pt is to continue with current dose of medication unless directed otherwise. Check labs at regular intervals q 3 months or q 6 months based on previous levels of control. Chronic Anticoagulant use - Pt has been counseled about the anticoagulant, need for serial monitoring, and need for the pt to alert the physician as to any new bruising, or acute bleeding. Therapeutic goal for INR is between 2.0 and 3.5. Pt's current coumadin dose is as follows: coumadin 5mg , wednesday and 4mg other days of the week Allergies - chronic - recommended pt to use allergy medication as prescribed. Pt has been counseled as to the appropriate use of the medication. Pt to call if allergy symptoms are not controlled with the medication. Pt advised to start either zyrtec or xyzal - they have the least amount of drowsiness and an over the counter nasal allergy spray - Flonase, Claritin, Nasonex - Nasal spray- use twice daily, one spray per nostril twice daily, after 30 minutes, rinse out nose with saline spray.. Use opposite hand per nostril to spray in the nasal steroid allergy spray. Skin lesion on right lower leg - recommended that she needs to have Dr. Hernandez do a biopsy of the lesion at her next appt - stop use of the creams about 2 weeks prior to her appt with Dr. Hernandez. LASIX TAKE 40MG IN T HE MORNING AND 40MG AT NOON FOR 3 DAYS. TAKE POTASSIUM 20MEQ IN THE MORNING AND 20MEQ AT NOON FOR 3 DAYS. . Allergies - chronic - recommended pt t o use allergy medication as prescribed. Pt has been counseled as to the appropriate use of the medication. Pt to call if allergy symptoms are not controlled with the medication. If using nasal spray, instructions as follows: Nasal spray- use twice daily, one spray per nostril twice daily, after 30 minutes, rinse out nose with saline spray.. Use opposite hand per nostril to spray in the nasal steroid allergy spray. Hypertension - well controlled - continue with current medications, continue with no added salt diet. Pt has been encouraged to exercise daily. The pt has been advised to call the office if there are any acute concerns about change in blood pressure readings at home. Edema - pt has been advised to elevate legs to prevent dependent edema, compression has been recommended to help to naturally decrease peripheral edema. Diuretic use has been discussed and pt has been instructed in appropriate use of such medication as necessary to further attempt to reduce peripheral edema. newton cabello or david while on the levaquin. Increase lasix and potassium to 1.5 pills a day for 3 days. Come back in 3 days for me to check on it. We will need to repeat your INR in a few days since you will be on the antibiotics. . Cellulitis - continue with oral antibi otics as previously directed, return to clinic as previously directed, call for acute change in symptoms, worsening redness, warmth, discharge. . Cellulitis - daylin nue with oral antibiotics as previously directed, return to clinic as previously directed, call for acute change in symptoms, worsening redness, warmth, discharge. . Allergies - chroni c - recommended pt to use allergy medication as prescribed. Pt has been counseled as to the appropriate use of the medication. Pt to call if allergy symptoms are not controlled with the medication. If using nasal spray, instructions as follows: Nasal spray- use twice daily, one spray per nostril twice daily, after 30 minutes, rinse out nose with saline spray.. Use opposite hand per nostril to spray in the nasal steroid allergy spray. Chronic Anticoagulant use - Pt has been counseled about the anticoagulant, need for serial monitoring, and need for the pt to alert the physician as to any new bruising, or acute bleeding. Therapeutic goal for INR is between 2.0 and 3.5. Back pain - the patient was counseled to always first attempt to use modalities other than pain medication for alleviation of the muscle spasms and pain. Pt states that she has a muscle relaxant at home, but she was not sure she should be using it. Pt is to try the muscle relaxant and tiger balm. Recommended for the pt to go get a massage also. Pt is to use medication as directed. Notify clinic if symptoms do not improve, if they worsen, or with any concerns. TAKE AN EXTRA LASIX AND POTASSIUM AT NOON X 5 DAYS INCREASE PROTEIN, DECREASE SODIUM CALL IF SWELLING WORSENS . Edema - pt has been advised to elevate legs to prevent dependent edema, compression has been recommended to help to naturally decrease peripheral edema. Diuretic use has been discussed and pt has been instructed in appropriate use of such medication as necessary to further attempt to reduce peripheral edema. Hypertension - well controlled - continue with current medications, continue with no added salt diet. Pt has been encouraged to exercise daily. The pt has been advised to call the office if there are any acute concerns about change in blood pressure readings at home. decrease the coumadi n to 4mg daily - repeat INR in one week . Hypertension - well controlled - daylin lima with current medications, continue with no added salt diet. Pt has been encouraged to exercise daily. The pt has been advised to call the office if there are any acute concerns about change in blood pressure readings at home. Sebaceous cyst on scalp - discussed with pt - she will talk to Dr. Hernandez about removal of the cyst when he does colonoscopy. Hypothyroidism - pt with chronic hypothyroidism, continue with current medication, will monitor pt to signs or symptoms of lack of adequate supplementation. Pt is to continue with current dose of medication unless directed otherwise. Check labs at regular intervals q 3 months or q 6 months based on previous levels of control. Atrial Fibrillation - pt on chronic anticoagulation and is currently rate controlled. The pt is to have labs done as appropriate to monitor medication levels and is to report if they start to feel as if their heart rate is becoming uncontrolled. Anti-coag is slightly elevated - decrease coumadin to 4mg daily.
--- NOTE | 2019-09-12 10:38 | NUR ---
Swing Bed Note: Qualifies for swing bed for continued need for IV medications (UTI, LLE Cellulitis) with continued need for short term Physical et Occupational therapy for strengthening. Ultimate goal is to return home at prior independent level of function. Anticipate admission to swing bed tomorrow in a.m. 09/12/19. Thank you for this referral!
--- OUTSIDE RECORDS SUMMARY | 2019-09-12 10:40 | XMS REPORT | CCD ---
Author Author Clara Pisano Organization [facility] Address [address] [place] [address] Phone Care Team Providers Care Technical Maintenance Technician Name Role Phone PP Unavailable CCM Unavailable Summary Purpose Interface Exchange Insurance Providers Payer name Policy type / Coverage type Covered libertarian ID Effective Begin Date Effective End Date WPS Medicare Part B Medicare Part B [id number] 2018 Unknown [employer] Medicare Part B [id number] 2018 Unknown Family history Sister Diagnosis Age At Onset defect Unknown Breast cancer Unknown Daughter Diagnosis Age At Onset Breast cancer Unknown Mother Diagnosis Age At Onset No Family Disease Entered N/A Social History Social History Element Codes Description Effective Dates Marital status Unknown M arried Lane 11/20/2014 Number of children Unknown 6 11/20/2014 Employment Unknown Retir ed 11/20/[address]: 3617532 Quit over 10 years ago 1963 11/20/2014 [...] ICD-9: 924.4 ICD-10: S80.11XA 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/2018 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 ICD-9: V58.61 ICD-10: [...] Fill Instructions levothyroxine 88 mcg tablet RxNorm: 749269 1 Tablet(s) PO daily 03/07/2019 10/02/2019 Active Pyridium 200 mg tablet RxNorm: 8136425 1 Tablet(s) PO TID PRN 12/05/2018 No Stop Date Active Keflex 500 mg capsule RxNorm: 941476 1 Capsule(s) PO TID 12/05/2018 12/11/2018 Inactive Keflex 500 mg capsule RxNorm: 732691 1 Capsule(s) PO TID 11/17/2018 11/21/2018 Inactive doxycycline hyclate 100 mg capsule RxNorm: 6834553 1 Capsule(s) PO BID 10/31/2018 10/30/2018 In active doxycycline hyclate 100 mg capsule RxNorm: 8145471 1 Capsule(s) PO BID 10/31/2018 11/06/2018 In active Keflex 500 mg capsule RxNorm: 490062 1 Capsule(s) PO TID 10/27/2018 10/30/2018 Inactive ceftriaxone 500 mg s olution for injection RxNorm: 2196231 Inj 10/27/2018 10/27/2018 Inactive Coumadin 4 mg tablet RxNorm: 097364 1 Tablet(s) PO daily 08/16/2018 08/10/2019 Active this is an update to her RX - she will l et you know when she needs refill triamcinolone aceton sreekanth 0.025 % topical cream RxNorm: 2494864 1 Application TOP QI D 08/16/2018 No Stop Date Active levothyroxine 125 mc g tablet RxNorm: 433086 TAKE ONE TABLET BY [facility] DAILY ON WEDNESDAY, WED, AND WEDNESDAY, AND 1/2 TABLET ON , , WED AND WEDNESDAY. TAKE ON AN EMPTY STOMACH 08/04/2018 03/06/2019 Inactive meclizine 25 mg tablet RxNorm: 858844 1 Tablet(s) PO TID as needed Dizziness 07/22/2018 No Stop Date Active meclizine 25 mg tablet RxNorm: 991430 1 Tablet(s) PO TID as needed Dizziness 07/19/2018 07/21/2018 In active furosemide 40 mg tablet RxNorm: 434807 1 Tablet(s) BID take 1.5 tabs twice a da y x 7 days then 1 pill daily thereafter 07/11/2018 02/05/2019 Inactive Coumadin 4 mg tablet RxNorm: 635393 1 Tablet(s) PO daily except 1.5 pills on WEDNESDAY AND Wednesday07/11/2018 08/15/2018 Inactive this is an update to her RX - she will let you know when she needs refill warfarin 5 mg tablet RxNorm: 731241 Tablet(s) TAKE ONE TABLET BY MOUTH DAILY EXCEPT / TAKE 4 MG 04/06/2018 08/22/2019 Active diltiazem 60 mg tablet RxNorm: 092546 1/2 Tablet(s) PO QID 03/24/2018 No Stop Date Active levothyroxine 125 mc g tablet RxNorm: 981830 TAKE ONE TABLET BY [facility] DAILY ON WEDNESDAY, WED, AND WEDNESDAY, AND 1/2 TABLET ON , , WED AND WEDNESDAY. TAKE ON AN EMPTY STOMACH 02/02/2018 07/31/2018 Inactive Coumadin 4 mg tablet RxNorm: 475328 TAKE ONE TABLET BY MOUTH DAILY ON AND Wednesday10/14/2017 07/10/2018 Inactive nystatin 100,000 uni t/gram topical cream RxNorm: 190608 1 Application TOP TID 08/17/2017 No Stop Date Active Voltaren 1 % topical gel RxNorm: 854791 2 Gram(s) TOP TID luiz ly to shoulder and neck 08/17/2017 No Stop Date Active triamcinolone aceton sreekanth 0.025 % topical cream RxNorm: 5927633 1 Application TOP BI D 08/17/2017 08/15/2018 In active levothyroxine 125 mc g tablet RxNorm: 021625 1 Tablet(s) UD 1 pill wed/wed/wed, 1/2 pill //sat/sun take ON AN EMPTY STOMACH 08/05/2017 02/01/2018 Inactive Coumadin 4 mg tablet RxNorm: 269794 1 Tablet(s) PO Wed/07/29/2017 10/13/2017 Inactive warfarin 5 mg tablet RxNorm: 484655 TAKE 1 AND 1/2 TABLETS BY MOUTH ON AND WEDNESDAY. TAKE ONLY 1 TABLET BY MOUTH ALL OTHER DAYS OF THE WEEK 07/12/2017 04/05/2018 In active furosemide 40 mg tablet RxNorm: 551697 Tablet(s) BID TAKE ONE TABLET BY MOUTH D AILY 06/15/2017 07/10/2018 Inactive Voltaren 1 % topical gel RxNorm: 161617 2 Gram(s) TOP TID luiz ly to shoulder and neck 06/15/2017 08/16/2017 Inactive Keflex 500 mg capsule RxNorm: 439447 1 Capsule(s) PO TID 04/01/2017 04/07/2017 Inactive furosemide 40 mg tablet RxNorm: 135622 TAKE ONE TABLET BY MOUTH DAILY 03/18/2017 06/14/2017 In active Claritin-D 12 Hour 5 mg-120 mg tablet,extended release RxNorm: 8620948 1 Tablet(s) PO BID 03/16/2017 05/14/2017 Inactive Lipitor 20 mg tablet RxNorm: 373026 1 Tablet(s) PO daily 02/09/2017 03/10/2017 Inactive Nasonex 50 mcg/actua tion Rob[place] RxNorm: 0645690 1 [place]ins NASAL BID 02/09/2017 09/06/2017 Inactive levothyroxine 125 mc g tablet RxNorm: 932837 1 Tablet(s) UD 1 pill wed/wed/wed, 1/2 pill //wed/wed take ON AN EMPTY STOMACH 02/09/2017 08/04/2017 Inactive lisinopril 2.5 mg ta blet RxNorm: 026446 1 Tablet(s) PO daily 02/09/2017 03/10/2017 Inactive fluorouracil 5 % top ical cream RxNorm: 466530 1 Application TOP BID 02/09/2017 02/18/2017 Inactive potassium chloride E R 20 mEq tablet,extended release RxNorm: 381502 Tablet(s) TAKE ONE TABLET BY MOUTH DAILY 02/08/2017 02/02/2018 Inactive warfarin 5 mg tablet RxNorm: 055888 TAKE 1 AND 1/2 TABLETS BY MOUTH ON AND WEDNESDAY. TAKE ONLY 1 TABLET BY MOUTH ALL OTHER DAYS OF THE WEEK 12/14/2016 05/30/2017 In active potassium chloride E R 20 mEq tablet,extended release RxNorm: 726187 TAKE ONE TABLET BY MOUTH DAILY 10/29/2016 01/26/2017 Inactive warfarin 5 mg tablet RxNorm: 274395 TAKE 1 AND 1/2 TABLETS BY MOUTH ON AND WEDNESDAY. TAKE ONLY 1 TABLET BY MOUTH ALL OTHER DAYS OF THE WEEK 10/27/2016 12/13/2016 In active nystatin 100,000 uni t/gram topical cream RxNorm: 902284 1 Application TOP TID 10/13/2016 08/16/2017 In active nitrofurantoin 50 mg capsule RxNorm: 169918 1 Capsule(s) PO BID 09/04/2016 09/03/2016 Inactive nitrofurantoin macro crystal 50 mg capsule RxNorm: 521595 1 Capsule(s) PO BID 09/04/2016 09/10/2016 In active Cipro 500 mg tablet RxNorm: 394156 1 Tablet(s) PO BID 08/26/2016 10/12/2016 Inactive Zyrtec 10 mg tablet RxNorm: 3817380 1 Tablet(s) PO daily 07/31/2016 08/29/2016 Inactive prednisone 20 mg tablet RxNorm: 763263 2 Tablet(s) PO daily 07/31/2016 08/02/2016 Inactive Kenalog 40 mg/mL zohra pension for injection RxNorm: 1529609 Milliliter(s) Inj 07/22/2016 07/22/2016 In active ceftriaxone 500 mg s olution for injection RxNorm: 6593690 Inj 07/22/2016 07/22/2016 Inactive Flonase Allergy Reli ef 50 mcg/actuation nasal spray,suspension RxNorm: 9118212 1 [place] NASAL BID 07/22/2016 08/20/2016 Inactive azithromycin 250 mg tablet RxNorm: 012692 2 Tablet(s) PO on day #1, then 1 pill daily x 4 days 07/22/2016 10/12/2016 Inactive warfarin 5 mg tablet RxNorm: 882091 TAKE 1 AND 1/2 TABLETS BY MOUTH ON AND WEDNESDAY. TAKE ONLY 1 TABLET BY MOUTH ALL OTHER DAYS OF THE WEEK 07/09/2016 09/30/2016 In active levothyroxine 125 mc g tablet RxNorm: 897579 Tablet(s) TAKE ONE TA BLET BY MOUTH DAILY ON AN EMPTY STOMACH 06/23/2016 02/08/2017 Inactive levothyroxine 125 mc g tablet RxNorm: 870805 TAKE ONE TABLET BY [facility] DAILY ON AN EMPTY STOMACH 06/23/2016 06/22/2016 Inactive levothyroxine 125 mc g tablet RxNorm: 112529 TAKE ONE TABLET BY MO [facility] DAILY ON AN EMPTY STOMACH 06/23/2016 08/04/2017 Inactive cetirizine 10 mg tablet RxNorm: 5418697 TAKE ONE TABLET BY MOUTH DAILY 06/16/2016 10/13/2016 In active furosemide 40 mg tablet RxNorm: 458224 Tablet(s) TAKE ONE TABLET BY MOUTH DAILY 06/05/2016 12/01/2016 In active cetirizine 10 mg tablet RxNorm: 6233055 1 Tablet(s) PO daily 05/01/2016 05/30/2016 Inactive Levaquin 250 mg tablet RxNorm: 456598 Tablet(s) PO 2 pills day one and 1 pill day 2-7 04/06/2016 07/21/2016 Inactive warfarin 5 mg tablet RxNorm: 435365 Tablet(s) 1/2 TABLETS BY MOUTH ON AND WEDNESDAY. TAKE ONLY 1 TABLET BY MOUTH ALL OTHER DAYS OF THE WEEK 03/18/2016 07/07/2016 In active triamcinolone aceton sreekanth 0.025 % topical cream RxNorm: 1001341 1 Application TOP BI D 03/10/2016 08/16/2017 In active potassium chloride E R 20 mEq tablet,extended release RxNorm: 548648 1 Tablet(s) PO daily 03/04/2016 06/01/2016 Inactive Levaquin 250 mg tablet RxNorm: 252900 Tablet(s) PO 2 pills day one and 1 pill day 2-7 03/04/2016 04/05/2016 Inactive Levaquin 250 mg tablet RxNorm: 529338 Tablet(s) PO 2 pills day one and 1 pill day 2-7 03/03/2016 03/03/2016 Inactive potassium chloride E R 20 mEq tablet,extended release RxNorm: 260319 1 Tablet(s) PO daily 03/03/2016 03/03/2016 Inactive Cipro 500 mg tablet RxNorm: 828373 1 Tablet(s) PO BID 02/20/2016 07/21/2016 Inactive Cipro 500 mg tablet RxNorm: 128247 1 Tablet(s) PO BID 02/20/2016 02/19/2016 Inactive furosemide 40 mg tablet RxNorm: 304870 TAKE ONE TABLET BY MOUTH DAILY 01/27/2016 01/26/2016 In active warfarin 5 mg tablet RxNorm: 487265 TAKE 1 AND 1/2 TABLETS BY MOUTH ON AND WEDNESDAY. TAKE ONLY 1 TABLET BY MOUTH ALL OTHER DAYS OF THE WEEK 01/27/2016 01/26/2016 In active furosemide 40 mg tablet RxNorm: 501058 TAKE ONE TABLET BY MOUTH DAILY 01/27/2016 06/04/2016 In active warfarin 5 mg tablet RxNorm: 073353 TAKE 1 AND 1/2 TABLETS BY MOUTH ON AND WEDNESDAY. TAKE ONLY 1 TABLET BY MOUTH ALL OTHER DAYS OF THE WEEK 01/27/2016 03/17/2016 In active potassium chloride E R 20 mEq tablet,extended release RxNorm: 813365 1 Tablet(s) PO daily 11/20/2015 03/02/2016 Inactive furosemide 40 mg tablet RxNorm: 472955 TAKE ONE TABLET BY MOUTH DAILY 11/12/2015 01/26/2016 In active Zovirax 5 % topical cream RxNorm: 741107 TOP QID 0 09/24/2015 09/23/2015 Inactive Zovirax 5 % topical cream RxNorm: 262216 TOP QID 0 09/24/2015 11/19/2015 Inactive nystatin 100,000 uni t/gram topical cream RxNorm: 868586 1 Application TOP TID 09/17/2015 10/12/2016 In active warfarin 5 mg tablet RxNorm: 294868 TAKE 1 AND 1/2 TABLETS BY MOUTH ON AND WEDNESDAY. TAKE ONLY 1 TABLET BY MOUTH ALL OTHER DAYS OF THE WEEK 08/19/2015 01/05/2016 In active loratadine 10 mg tablet RxNorm: 271648 1 Tablet(s) PO daily 07/30/2015 07/23/2016 Inactive loratadine 10 mg tablet RxNorm: 463511 1 Tablet(s) PO daily 07/30/2015 07/29/2015 Inactive furosemide 40 mg tablet RxNorm: 619839 TAKE ONE TABLET BY MOUTH DAILY 06/24/2015 11/11/2015 In active levothyroxine 125 mc g tablet RxNorm: 295313 1 Tablet(s) PO daily 05/31/2015 05/24/2016 Inactive furosemide 40 mg tablet RxNorm: 841382 1 Tablet(s) PO daily 04/05/2015 06/23/2015 Inactive warfarin 5 mg tablet RxNorm: 730503 TAKE 1 AND 1/2 TABLETS BY MOUTH ON AND WEDNESDAY. TAKE ONLY 1 TABLET BY MOUTH ALL OTHER DAYS OF THE WEEK 02/12/2015 07/29/2015 In active Flonase Allergy Reli ef 50 mcg/actuation nasal spray,suspension RxNorm: 2 [place] NASAL daily 02/05/2015 03/06/2015 Inactive Kenalog 40 mg/mL zohra pension for injection RxNorm: 4733239 Milliliter(s) Inj 02/05/2015 02/05/2015 In active warfarin 5 mg tablet RxNorm: 309990 Take 7.5mg (1 1/2 tablets) Wednesday and and 1 Tablet(s) PO (5mg) all other days 01/11/2015 02/09/2015 Inactive levothyroxine 125 mc g tablet RxNorm: 676660 1 Tablet(s) PO every other day 01/01/2015 05/30/2015 In active alternate with 150 levothyroxine 150 mc g tablet RxNorm: 635640 1 Tablet(s) PO every other day 01/01/2015 05/30/2015 In active alternate with 125 loratadine 10 mg tablet RxNorm: 977217 Tablet(s) PO as needed No Start Date Active Calcium + D oral RxNorm: 563378 oral No Start Date Active Aspirin Low Dose 81 mg tablet,delayed release RxNorm: 579656 1 Tablet(s) PO daily No Start Date Active magnesium 250 mg tablet RxNorm: 1 Tablet(s) PO daily No Start Date Active Vitamin D3 2,000 uni t tablet RxNorm: 603509 2 Tablet(s) PO daily No Start Date Active Fosamax 35 mg tablet RxNorm: 673731 1 Tablet(s) PO QW No Start Date Active levothyroxine 125 mc g tablet RxNorm: 133130 1 Tablet(s) PO daily No Start Date 12/31/2014 Inactive Vitamin C oral RxNorm: 1151 oral No Start Date 03/06/2019 Inactive Fish Oil 1,000 mg ca psule RxNorm: 1 Capsule(s) PO TID No Start Date 03/06/2019 Inactive levothyroxine 150 mc g tablet RxNorm: 725564 1 Tablet(s) PO daily No Start Date 12/31/2014 Inactive diltiazem 60 mg tablet RxNorm: 367199 1 Tablet(s) PO QID No Start Date 03/23/2018 Inactive meclizine 25 mg tablet RxNorm: 777516 1 Tablet(s) PO TID as needed Dizziness No Start Date 07/18/2018 Inactive furosemide 40 mg tablet RxNorm: 626667 1 Tablet(s) PO daily No Start Date 04/04/2015 Inactive potassium chloride RxNorm: miscellaneous No Start Date 11/19/2015 Inactive Vitamin D2 oral RxNorm: 4018 oral No Start Date 05/31/2015 Inactive warfarin 5 mg tablet RxNorm: 119300 1 Tablet(s) PO daily No Start Date 01/10/2015 Inactive Coumadin 4 mg tablet RxNorm: 244637 1 Tablet(s) PO Wed/ No Start Date 07/28/2017 Inactive Medication Administered Medication Codes Instruc tions Start Date Status ceftriaxone 500 mg solution for injection RxNorm: 6071469 10/27/2018 No longer A ctive ceftriaxone 500 mg solution for injection RxNorm: 4432781 07/22/2016 No longer A ctive Kenalog 40 mg/mL suspension for injection RxNorm: 9150312 Milliliter 07/22/2016 No longer Active Kenalog 40 mg/mL suspension for injection RxNorm: 5665893 Milliliter 02/05/2015 No longer Active Immunizations Vaccine [...] not specified ICD-10: N39.0 ICD-9: 599.0 12/05/2018 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 ICD-10: Z79.01 ICD-9: [...] 244.9 11/20/2014 ACTINIC KERATOSIS ICD-9: 702.0 11/20/2014 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 current us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 therapy ICD-9: V58.61 [...] Observation Code Item Item Code Result Date Tsh Ord6 TSH (3rd IS) 1.96 uIU/mL 03/01/2019 Pt Gpz0983 PT 32.9 seconds 03/01/2019 Pt Xau6347 INR 3.3 03/01/2019 Pt Clb0273 Low Intensity - 1.5-2.0 03/01/2019 Pt Xqf9674 Mod intensity - 2.0-3.0 03/01/2019 Pt Tmw1090 Hi intensity - 3.0-4.0 03/01/2019 Free T4 Jhu397 FREE T4 1.50 ng/dL 03/01/2019 Pt Kzp1949 PT 23.4 seconds 01/31/2019 Pt Uvu9179 INR 2.1 01/31/2019 Pt Jkn2603 Low Intensity - 1.5-2.0 01/31/2019 Pt Ult9549 Mod intensity - 2.0-3.0 01/31/2019 Pt Lki8712 Hi intensity - 3.0-4.0 01/31/2019 Pt Ytq6266 PT 23.6 seconds 01/06/2019 Pt Ibh6253 INR 2.2 01/06/2019 Pt Dyr7819 Low Intensity - 1.5-2.0 01/06/2019 Pt Ltl1796 Mod intensity - 2.0-3.0 01/06/2019 Pt Hdy8048 Hi intensity - 3.0-4.0 01/06/2019 Pt Ssy1235 PT 23.8 seconds 12/09/2018 Pt Kzm6301 INR 2.2 12/09/2018 Pt Piq6914 Low Intensity - 1.5-2.0 12/09/2018 Pt Ukv3617 Mod intensity - 2.0-3.0 12/09/2018 Pt Ujx1668 Hi intensity - 3.0-4.0 12/09/2018 Pt Yzs6712 PT 22.3 seconds 11/23/2018 Pt Qtg9819 INR 2.0 11/23/2018 Pt Rjw1531 Low Intensity - 1.5-2.0 11/23/2018 Pt Gtw8799 Mod intensity - 2.0-3.0 11/23/2018 Pt Gbs1696 Hi intensity - 3.0-4.0 11/23/2018 Pt Cyc3877 PT 18.0 seconds 11/14/2018 Pt Amp5939 INR 1.5 11/14/2018 Pt Dhc0342 Low Intensity - 1.5-2.0 11/14/2018 Pt Ebb1888 Mod intensity - 2.0-3.0 11/14/2018 Pt Uce5283 Hi intensity - 3.0-4.0 11/14/2018 Pt Mwe2756 PT 17.3 seconds 11/03/2018 Pt Cps5934 INR 1.5 11/03/2018 Pt Znt9045 Low Intensity - 1.5-2.0 11/03/2018 Pt Nqb0963 Mod intensity - 2.0-3.0 11/03/2018 Pt Cjp5949 Hi intensity - 3.0-4.0 11/03/2018 Urine Culture Ucult Comp lete >100,000 col/ml aerobic grow th sent to ref lab 10/28/2018 Pt Pcz1300 PT 24.4 seconds 10/24/2018 Pt Xdp8319 INR 2.2 10/24/2018 Pt Zmb0964 Low Intensity - 1.5-2.0 10/24/2018 Pt Ton7877 Mod intensity - 2.0-3.0 10/24/2018 Pt Fjp1921 Hi intensity - 3.0-4.0 10/24/2018 Lipid Ord30 CHOL 143 mg/dL 10/24/2018 Lipid Ord30 HDL 52.0 mg/dl 10/24/2018 Lipid Ord30 TRIG 78 mg/dL 10/24/2018 Lipid Ord30 LDL 75 mg/dL 10/24/2018 Lipid Ord30 C/HDL 2.8 Ratio 10/24/2018 Comp Metabolic Let393 NA 142 mEq/L 10/24/2018 Comp Metabolic Vul684 K 4.6 mEq/L 10/24/2018 Comp Metabolic Dpq706 CL 107 mEq/L 10/24/2018 Comp Metabolic Bbc205 CO2 27.0 mEq/L 10/24/2018 Comp Metabolic Kor972 AN ION GAP 13 10/24/2018 Comp Metabolic Ddd794 GL UCOSE 82 mg/dL 10/24/2018 Comp Metabolic Ndw015 Cr eat 1.1 mg/dL 10/24/2018 Comp Metabolic Yik694 eG FR 54 ml/min/1.73m2 10/24 Comp Metabolic Loy534 BUN 23 mg/dL 10/24/2018 Comp Metabolic Myx296 B/ C Ratio 21.9 Ratio 10/24/2018 Comp Metabolic Afj490 CA LCIUM 9.0 mg/dL 10/24/2018 Comp Metabolic Rhu144 AL K PHOS 64 U/L 10/24/2018 Comp Metabolic Vzi643 T(SGOT) 18 U/L 10/24/2018 Comp Metabolic Qwm346 AL T(SGPT) 14 U/L 10/24/2018 Comp Metabolic Tef897 BI LI T 0.5 mg/dL 10/24/2018 Comp Metabolic Rie471 AL BUMIN 3.0 g/dL 10/24/2018 Comp Metabolic Thg046 TP RO 5.2 g/dL 10/24/2018 Comp Metabolic Hqi069 GL OB 2.2 g/dL 10/24/2018 Comp Metabolic Jpp659 A/ G Ratio 1.4 Ratio 10/24/2018 Comp Metabolic Mef847 Os mo 286 mOsmo 10/24/2018 Pt Wrj9113 PT 23.8 seconds 09/29/2018 Pt Wbn4876 INR 2.2 09/29/2018 Pt Cqp8581 Low Intensity - 1.5-2.0 09/29/2018 Pt Wls6708 Mod intensity - 2.0-3.0 09/29/2018 Pt Kmq3490 Hi intensity - 3.0-4.0 09/29/2018 Pt Bmr5114 PT 19.6 seconds 09/19/2018 Pt Euy8583 INR 1.7 09/19/2018 Pt Egl4725 Low Intensity - 1.5-2.0 09/19/2018 Pt Ife2130 Mod intensity - 2.0-3.0 09/19/2018 Pt Bre0974 Hi intensity - 3.0-4.0 09/19/2018 Pt Ykh3086 PT 16.8 seconds 09/12/2018 Pt Hcd9150 INR 1.4 09/12/2018 Pt Jyi9216 Low Intensity - 1.5-2.0 09/12/2018 Pt Cuz2048 Mod intensity - 2.0-3.0 09/12/2018 Pt Sza8666 Hi intensity - 3.0-4.0 09/12/2018 Pt Qep0181 PT 13.1 seconds 09/07/2018 Pt Kag7190 INR 1.0 09/07/2018 Pt Mws1330 Low Intensity - 1.5-2.0 09/07/2018 Pt Kox7808 Mod intensity - 2.0-3.0 09/07/2018 Pt Fgz0261 Hi intensity - 3.0-4.0 09/07/2018 Pt Jxi9530 PT 24.1 seconds 08/23/2018 Pt Zaw6215 INR 2.2 08/23/2018 Pt Cda9906 Low Intensity - 1.5-2.0 08/23/2018 Pt Tou0486 Mod intensity - 2.0-3.0 08/23/2018 Pt Fot9703 Hi intensity - 3.0-4.0 08/23/2018 Pt Inr7575 PT 30.9 seconds 08/16/2018 Pt Jfm8718 INR 3.0 08/16/2018 Pt Wnr2385 Low Intensity - 1.5-2.0 08/16/2018 Pt Ifu6451 Mod intensity - 2.0-3.0 08/16/2018 Pt Ybo7570 Hi intensity - 3.0-4.0 08/16/2018 Pt Jgz6425 PT 29.5 seconds 08/01/2018 Pt Xsq0595 INR 2.8 08/01/2018 Pt Lol5098 Low Intensity - 1.5-2.0 08/01/2018 Pt Qyn2837 Mod intensity - 2.0-3.0 08/01/2018 Pt Mua0025 Hi intensity - 3.0-4.0 08/01/2018 Pt Dge4358 PT 24.2 seconds 07/25/2018 Pt Ztz1767 INR 2.2 07/25/2018 Pt Zev7193 Low Intensity - 1.5-2.0 07/25/2018 Pt Fyq9466 Mod intensity - 2.0-3.0 07/25/2018 Pt Hhr0612 Hi intensity - 3.0-4.0 07/25/2018 Pt Qwy4447 PT 38.6 seconds 07/19/2018 Pt Yah4223 INR 4.0 07/19/2018 Pt Mlg3590 Low Intensity - 1.5-2.0 07/19/2018 Pt Ztn2410 Mod intensity - 2.0-3.0 07/19/2018 Pt Mbv2725 Hi intensity - 3.0-4.0 07/19/2018 Pt Xbr8773 PT 25.7 seconds 07/11/2018 Pt Ppx9570 INR 2.4 07/11/2018 Pt Opm3313 Low Intensity - 1.5-2.0 07/11/2018 Pt Ioe9468 Mod intensity - 2.0-3.0 07/11/2018 Pt Zag5159 Hi intensity - 3.0-4.0 07/11/2018 Pt Urm5666 PT 18.5 seconds 07/08/2018 Pt Ett9663 INR 1.6 07/08/2018 Pt Bvp3401 Low Intensity - 1.5-2.0 07/08/2018 Pt Bvt7873 Mod intensity - 2.0-3.0 07/08/2018 Pt May9099 Hi intensity - 3.0-4.0 07/08/2018 Pt Uly1229 PT 27.3 seconds 06/29/2018 Pt Yzs2102 INR 2.6 06/29/2018 Pt Nzf5827 Low Intensity - 1.5-2.0 06/29/2018 Pt Uti0825 Mod intensity - 2.0-3.0 06/29/2018 Pt Xvv4816 Hi intensity - 3.0-4.0 06/29/2018 Pt Taq2689 PT 24.0 seconds 05/26/2018 Pt Ovy5211 INR 2.2 05/26/2018 Pt Ypr7791 Low Intensity - 1.5-2.0 05/26/2018 Pt Wwe6286 Mod intensity - 2.0-3.0 05/26/2018 Pt Poy3336 Hi intensity - 3.0-4.0 05/26/2018 Tsh Ord6 [...] 29.6 pg 03/25/2018 Cbc With Differential Ord2 [place]% 9.5 % 03/25/2018 Cbc With Differential Ord2 [...] 2.19 K/ul 03/25/2018 Cbc With Differential Ord2 [place] ABS# 0.8 K/ul 03/25/2018 Cbc With Differential Ord2 Eos ABS# 0.3 K/ul 03/25/2018 Cbc With Differential Ord2 Baso ABS# 0.0 K/ul 03/25/2018 Lipid Ord30 CHOL 156 mg/dL 03/25/2018 Lipid Ord30 HDL 52.0 mg/dl 03/25/2018 Lipid Ord30 TRIG 98 mg/dL 03/25/2018 Lipid Ord30 LDL 84 mg/dL 03/25/2018 Lipid Ord30 C/HDL 3.0 Ratio 03/25/2018 Free T4 Eiv288 FREE T4 1.73 ng/dL 03/25/2018 Comp Metabolic Jfh122 NA 143 mEq/L 03/25/2018 Comp Metabolic Gqi142 K 4.6 mEq/L 03/25/2018 Comp Metabolic Mgx968 CL 108 mEq/L 03/25/2018 Comp Metabolic Yfz627 CO2 26.0 mEq/L 03/25/2018 Comp Metabolic Bvs069 AN ION GAP 14 03/25/2018 Comp Metabolic Yjf373 GL UCOSE 87 mg/dL 03/25/2018 Comp Metabolic Ccz133 Cr eat 1.2 mg/dL 03/25/2018 Comp Metabolic Ahi985 eG FR 48 ml/min/1.73m2 03/25 Comp Metabolic Dta038 BUN 18 mg/dL 03/25/2018 Comp Metabolic Msl225 B/ C Ratio 15.5 Ratio 03/25/2018 Comp Metabolic Zib882 CA LCIUM 9.1 mg/dL 03/25/2018 Comp Metabolic Uja122 AL K PHOS 58 U/L 03/25/2018 Comp Metabolic Dgz292 T(SGOT) 21 U/L 03/25/2018 Comp Metabolic Wlx336 AL T(SGPT) 13 U/L 03/25/2018 Comp Metabolic Yfe048 BI LI T 0.7 mg/dL 03/25/2018 Comp Metabolic Qbr796 AL BUMIN 3.2 g/dL 03/25/2018 Comp Metabolic Nsc041 TP RO 5.5 g/dL 03/25/2018 Comp Metabolic Iof764 GL OB 2.3 g/dL 03/25/2018 Comp Metabolic Fsp764 A/ G Ratio 1.4 Ratio 03/25/2018 Comp Metabolic Lmd811 Os mo 286 mOsmo 03/25/2018 Pt Fsd0388 PT 29.0 seconds 03/22/2018 Pt Xev3598 INR 2.7 03/22/2018 Pt Hnl4368 Low Intensity - 1.5-2.0 03/22/2018 Pt Woz2685 Mod intensity - 2.0-3.0 03/22/2018 Pt Vei7148 Hi intensity - 3.0-4.0 03/22/2018 Pt Pbn9593 PT 27.1 seconds 02/25/2018 Pt Lhw0973 INR 2.5 02/25/2018 Pt Lxx1181 Low Intensity - 1.5-2.0 02/25/2018 Pt Qxi1365 Mod intensity - 2.0-3.0 02/25/2018 Pt Eqf6321 Hi intensity - 3.0-4.0 02/25/2018 Pt Low4961 PT 26.1 seconds 01/26/2018 Pt Wly5762 INR 2.4 01/26/2018 Pt Kfv1626 Low Intensity - 1.5-2.0 01/26/2018 Pt Hnw9498 Mod intensity - 2.0-3.0 01/26/2018 Pt Zac8011 Hi intensity - 3.0-4.0 01/26/2018 Pt Epe0958 PT 22.8 seconds 12/24/2017 Pt Man4520 INR 2.0 12/24/2017 Pt Sbo6027 Low Intensity - 1.5-2.0 12/24/2017 Pt Ssn2754 Mod intensity - 2.0-3.0 12/24/2017 Pt Fed2531 Hi intensity - 3.0-4.0 12/24/2017 Pt Cvv8149 PT 29.4 seconds 11/18/2017 Pt Dew2679 INR 2.8 11/18/2017 Pt Gdf7125 Low Intensity - 1.5-2.0 11/18/2017 Pt Npo5702 Mod intensity - 2.0-3.0 11/18/2017 Pt Pvp0484 Hi intensity - 3.0-4.0 11/18/2017 Pt Pxf5781 PT 26.6 seconds 09/13/2017 Pt Mar8998 INR 2.4 09/13/2017 Pt Cvp7118 Low Intensity - 1.5-2.0 09/13/2017 Pt Lvs8634 Mod intensity - 2.0-3.0 09/13/2017 Pt Cao0453 Hi intensity - 3.0-4.0 09/13/2017 Pt Dzr2196 PT 28.2 seconds 08/10/2017 Pt Mdv7796 INR 2.6 08/10/2017 Pt Kfs4166 Low Intensity - 1.5-2.0 08/10/2017 Pt Oer6846 Mod intensity - 2.0-3.0 08/10/2017 Pt Qdb4622 Hi intensity - 3.0-4.0 08/10/2017 Pt Neg0470 PT 33.9 seconds 07/27/2017 Pt Kwo8687 INR 3.3 07/27/2017 Pt Ygr1610 Low Intensity - 1.5-2.0 07/27/2017 Pt Aap2226 Mod intensity - 2.0-3.0 07/27/2017 Pt Dub0567 Hi intensity - 3.0-4.0 07/27/2017 Pt Hwe9820 PT 29.1 seconds 06/29/2017 Pt Wui1301 INR 2.7 06/29/2017 Pt Euc0484 Low Intensity - 1.5-2.0 06/29/2017 Pt Ihi8700 Mod intensity - 2.0-3.0 06/29/2017 Pt Zzh9400 Hi intensity - 3.0-4.0 06/29/2017 Pt Qtq9153 PT 30.3 seconds 06/11/2017 Pt Rfb4082 INR 2.9 06/11/2017 Pt Kmi3665 Low Intensity - 1.5-2.0 06/11/2017 Pt Bmg4425 Mod intensity - 2.0-3.0 06/11/2017 Pt Ccm3664 Hi intensity - 3.0-4.0 06/11/2017 Pt Ioh1144 PT 39.1 seconds 06/07/2017 Pt Ilj5100 INR 3.9 06/07/2017 Pt Cxh4607 Low Intensity - 1.5-2.0 06/07/2017 Pt Hzj4802 Mod intensity - 2.0-3.0 06/07/2017 Pt Afn6749 Hi intensity - 3.0-4.0 06/07/2017 Pt Lcw1809 PT 34.2 seconds 05/26/2017 Pt Lks7153 INR 3.3 05/26/2017 Pt Jpv1538 Low Intensity - 1.5-2.0 05/26/2017 Pt Ygk6608 Mod intensity - 2.0-3.0 05/26/2017 Pt Ymj6554 Hi intensity - 3.0-4.0 05/26/2017 Comp Metabolic Agb436 NA 138 mEq/L 04/23/2017 Comp Metabolic Qre752 K 4.2 mEq/L 04/23/2017 Comp Metabolic Pze966 CL 101 mEq/L 04/23/2017 Comp Metabolic Vio068 CO2 28.0 mEq/L 04/23/2017 Comp Metabolic Fwe557 AN ION GAP 13 04/23/2017 Comp Metabolic Vsd455 GL UCOSE 89 mg/dL 04/23/2017 Comp Metabolic Psw540 Cr eat 1.1 mg/dL 04/23/2017 Comp Metabolic Ukp255 eG FR 51 ml/min/1.73m2 04/23 Comp Metabolic Cjs312 BUN 26 mg/dL 04/23/2017 Comp Metabolic Xkz808 B/ C Ratio 23.9 Ratio 04/23/2017 Comp Metabolic Oxy791 CA LCIUM 9.4 mg/dL 04/23/2017 Comp Metabolic Lvu795 AL K PHOS 95 U/L 04/23/2017 Comp Metabolic Aoa080 T(SGOT) 18 U/L 04/23/2017 Comp Metabolic Xmt984 AL T(SGPT) 17 U/L 04/23/2017 Comp Metabolic Yuh513 BI LI T 0.7 mg/dL 04/23/2017 Comp Metabolic Mzu936 AL BUMIN 3.2 g/dL 04/23/2017 Comp Metabolic Lcr980 TP RO 5.6 g/dL 04/23/2017 Comp Metabolic Rgo500 GL OB 2.4 g/dL 04/23/2017 Comp Metabolic Dxm137 A/ G Ratio 1.3 Ratio 04/23/2017 Comp Metabolic Una377 Os mo 280 mOsmo 04/23/2017 Pt Etr5877 PT 28.6 seconds 04/23/2017 Pt Zvn3501 INR 2.7 04/23/2017 Pt Ycd5278 Low Intensity - 1.5-2.0 04/23/2017 Pt Qwc5876 Mod intensity - 2.0-3.0 04/23/2017 Pt Mac8993 Hi intensity - 3.0-4.0 04/23/2017 Pt Urx6815 PT 24.4 seconds 03/16/2017 Pt Vsh6391 INR 2.2 03/16/2017 Pt Rdi8900 Low Intensity - 1.5-2.0 03/16/2017 Pt Dow6696 Mod intensity - 2.0-3.0 03/16/2017 Pt Bdf5167 Hi intensity - 3.0-4.0 03/16/2017 Pt Irb1719 PT 28.2 seconds 02/24/2017 Pt Yqp4950 INR 2.6 02/24/2017 Pt Scv5590 Low Intensity - 1.5-2.0 02/24/2017 Pt Kon2505 Mod intensity - 2.0-3.0 02/24/2017 Pt Ael8965 Hi intensity - 3.0-4.0 02/24/2017 Pt Jmz2702 PT 26.8 seconds 02/08/2017 Pt Qxn0441 INR 2.5 02/08/2017 Pt Cji7223 Low Intensity - 1.5-2.0 02/08/2017 Pt Gme9481 Mod intensity - 2.0-3.0 02/08/2017 Pt Mbb7745 Hi intensity - 3.0-4.0 02/08/2017 Lipid Ord30 CHOL 150 mg/dL 01/25/2017 Lipid Ord30 HDL 55.0 mg/dl 01/25/2017 Lipid Ord30 TRIG 66 mg/dL 01/25/2017 Lipid Ord30 LDL 82 mg/dL 01/25/2017 Lipid Ord30 C/HDL 2.7 Ratio 01/25/2017 Pt Uuw8224 PT 29.9 seconds 01/25/2017 Pt Fgw5146 INR 2.8 01/25/2017 Pt Vky1430 Low Intensity - 1.5-2.0 01/25/2017 Pt Hxr8819 Mod intensity - 2.0-3.0 01/25/2017 Pt Abn6074 Hi intensity - 3.0-4.0 01/25/2017 Comp Metabolic Urr414 NA 143 mEq/L 01/25/2017 Comp Metabolic Gan171 K 3.9 mEq/L 01/25/2017 Comp Metabolic Ncw511 CL 108 mEq/L 01/25/2017 Comp Metabolic Fsu943 CO2 23.0 mEq/L 01/25/2017 Comp Metabolic Tkj313 AN ION GAP 16 01/25/2017 Comp Metabolic Vbn775 GL UCOSE 80 mg/dL 01/25/2017 Comp Metabolic Rzb621 Cr eat 1.0 mg/dL 01/25/2017 Comp Metabolic Cah978 eG FR 57 ml/min/1.73m2 01/25 Comp Metabolic Tnv505 BUN 25 mg/dL 01/25/2017 Comp Metabolic Orj544 B/ C Ratio 25.0 Ratio 01/25/2017 Comp Metabolic Dks786 CA LCIUM 8.5 mg/dL 01/25/2017 Comp Metabolic Owe658 AL K PHOS 81 U/L 01/25/2017 Comp Metabolic Uxf604 T(SGOT) 19 U/L 01/25/2017 Comp Metabolic Bxf397 AL T(SGPT) 23 U/L 01/25/2017 Comp Metabolic Lgj498 BI LI T 0.5 mg/dL 01/25/2017 Comp Metabolic Zxk695 AL BUMIN 2.9 g/dL 01/25/2017 Comp Metabolic Ymh278 TP RO 5.1 g/dL 01/25/2017 Comp Metabolic Ppb876 GL OB 2.2 g/dL 01/25/2017 Comp Metabolic Vbf026 A/ G Ratio 1.3 Ratio 01/25/2017 Comp Metabolic Hzu117 Os mo 288 mOsmo 01/25/2017 Cbc With [...] 30.7 pg 01/25/2017 Cbc With Differential Ord2 [place]% 8.2 % 01/25/2017 Cbc With Differential Ord2 [...] 3.10 K/ul 01/25/2017 Cbc With Differential Ord2 [place] ABS# 0.8 K/ul 01/25/2017 Cbc With Differential Ord2 Eos ABS# 0.4 K/ul 01/25/2017 Cbc With Differential Ord2 Baso ABS# 0.1 K/ul 01/25/2017 Free T4 Iog774 FREE T4 2.09 ng/dL 01/25/2017 Tsh Ord6 hTSH II 0.46 uIU/mL 01/25/2017 Pt Qev8334 PT 26.1 seconds 11/26/2016 Pt Ypm6438 INR 2.6 11/26/2016 Pt Dxb8994 Low Intensity - 1.5-2.0 11/26/2016 Pt Qeu6252 Mod intensity - 2.0-3.0 11/26/2016 Pt Eqo6881 Hi intensity - 3.0-4.0 11/26/2016 Pt Ykw5980 PT 26.2 seconds 10/29/2016 Pt Mbs5837 INR 2.6 10/29/2016 Pt Syo9896 Low Intensity - 1.5-2.0 10/29/2016 Pt Mvy7728 Mod intensity - 2.0-3.0 10/29/2016 Pt Pfw7219 Hi intensity - 3.0-4.0 10/29/2016 Pt Ehs7664 PT 20.8 seconds 10/13/2016 Pt Bbx5588 INR 1.9 10/13/2016 Pt Ydz8663 Low Intensity - 1.5-2.0 10/13/2016 Pt Aql1444 Mod intensity - 2.0-3.0 10/13/2016 Pt Dfo4543 Hi intensity - 3.0-4.0 10/13/2016 Pt Yjt4946 PT 26.5 seconds 10/01/2016 Pt Kxd6435 INR 2.6 10/01/2016 Pt Asv2411 Low Intensity - 1.5-2.0 10/01/2016 Pt Zuv2823 Mod intensity - 2.0-3.0 10/01/2016 Pt Wxu8361 Hi intensity - 3.0-4.0 10/01/2016 Pt Rsu4270 PT 24.6 seconds 09/14/2016 Pt Zba8801 INR 2.4 09/14/2016 Pt Auf4505 Low Intensity - 1.5-2.0 09/14/2016 Pt Mdp3738 Mod intensity - 2.0-3.0 09/14/2016 Pt Mmy4851 Hi intensity - 3.0-4.0 09/14/2016 Pt Fic4218 PT 18.0 seconds 09/07/2016 Pt Mnc1895 INR 1.6 09/07/2016 Pt Dbu8331 Low Intensity - 1.5-2.0 09/07/2016 Pt Hpr2421 Mod intensity - 2.0-3.0 09/07/2016 Pt Paz4632 Hi intensity - 3.0-4.0 09/07/2016 Pt Zen9301 PT 23.7 seconds 08/12/2016 Pt Fxx5108 INR 2.2 08/12/2016 Pt Wef6612 Low Intensity - 1.5-2.0 08/12/2016 Pt Esl1062 Mod intensity - 2.0-3.0 08/12/2016 Pt Geu7508 Hi intensity - 3.0-4.0 08/12/2016 Pt Ora8781 PT 21.6 seconds 07/27/2016 Pt Oqc2971 INR 2.0 07/27/2016 Pt Nam6652 Low Intensity - 1.5-2.0 07/27/2016 Pt Abq6920 Mod intensity - 2.0-3.0 07/27/2016 Pt Vgw0229 Hi intensity - 3.0-4.0 07/27/2016 Pt Cgj2101 PT 26.0 seconds 06/15/2016 Pt Opd5377 INR 2.5 06/15/2016 Pt Bcm9009 Low Intensity - 1.5-2.0 06/15/2016 Pt Qeb9938 Mod intensity - 2.0-3.0 06/15/2016 Pt Mer8198 Hi intensity - 3.0-4.0 06/15/2016 Pt Vwh7628 PT 18.8 seconds 06/01/2016 Pt Evx6354 INR 1.7 06/01/2016 Pt Wjj3599 Low Intensity - 1.5-2.0 06/01/2016 Pt Pni5986 Mod intensity - 2.0-3.0 06/01/2016 Pt Xyc6475 Hi intensity - 3.0-4.0 06/01/2016 Pt Ojs1817 PT 20.8 seconds 05/12/2016 Pt Jzz8840 INR 1.9 05/12/2016 Pt Thm8760 Low Intensity - 1.5-2.0 05/12/2016 Pt Ovj5142 Mod intensity - 2.0-3.0 05/12/2016 Pt Mvp6913 Hi intensity - 3.0-4.0 05/12/2016 Pt Rej7002 PT 24.5 seconds 04/10/2016 Pt Nah2208 INR 2.4 04/10/2016 Pt Ojs7825 Low Intensity - 1.5-2.0 04/10/2016 Pt Bsj7032 Mod intensity - 2.0-3.0 04/10/2016 Pt Fxb4076 Hi intensity - 3.0-4.0 04/10/2016 Pt Iji2855 PT 26.4 seconds 03/10/2016 Pt Gul6911 INR 2.6 03/10/2016 Pt Dqk8823 Low Intensity - 1.5-2.0 03/10/2016 Pt Dsm1576 Mod intensity - 2.0-3.0 03/10/2016 Pt Orh5992 Hi intensity - 3.0-4.0 03/10/2016 Pt Mto8928 PT 24.9 seconds 03/06/2016 Pt Mvn6970 INR 2.4 03/06/2016 Pt Pnt1077 Low Intensity - 1.5-2.0 03/06/2016 Pt Tah3689 Mod intensity - 2.0-3.0 03/06/2016 Pt Ued0196 Hi intensity - 3.0-4.0 03/06/2016 Pt Flq3022 PT 21.9 seconds 02/25/2016 Pt Ypf2987 INR 2.0 02/25/2016 Pt Slg0740 Low Intensity - 1.5-2.0 02/25/2016 Pt Mfk4346 Mod intensity - 2.0-3.0 02/25/2016 Pt Tee1789 Hi intensity - 3.0-4.0 02/25/2016 Pt Dfe6055 PT 21.8 seconds 02/21/2016 Pt Dhr1095 INR 2.0 02/21/2016 Pt Cbu7823 Low Intensity - 1.5-2.0 02/21/2016 Pt Vjk4495 Mod intensity - 2.0-3.0 02/21/2016 Pt Pbd0551 Hi intensity - 3.0-4.0 02/21/2016 Culture Urine [id number] URI NE CULTURE SEE NOTES 02/20/2016 Culture Urine [id number] Con tinued Results 02/20/2016 Urine Culture Ucult [...] 29.2 pg 02/14/2016 Cbc With Differential Ord2 [place]% 9.3 % 02/14/2016 Cbc With Differential Ord2 [...] 2.55 K/ul 02/14/2016 Cbc With Differential Ord2 [place] ABS# 0.8 K/ul 02/14/2016 Cbc With Differential Ord2 Eos ABS# 0.4 K/ul 02/14/2016 Cbc With Differential Ord2 Baso ABS# 0.1 K/ul 02/14/2016 Tsh Ord6 hTSH II 0.80 uIU/mL 02/14/2016 Pt Bhg3280 PT 27.1 seconds 02/14/2016 Pt Car8110 INR 2.7 02/14/2016 Pt Zrj8627 Low Intensity - 1.5-2.0 02/14/2016 Pt Ayl9480 Mod intensity - 2.0-3.0 02/14/2016 Pt Prc4982 Hi intensity - 3.0-4.0 02/14/2016 Free T4 Hqv528 FREE T4 1.87 ng/dL 02/14/2016 Comp Metabolic Lfb419 NA 139 mEq/L 02/14/2016 Comp Metabolic Jum350 K 3.8 mEq/L 02/14/2016 Comp Metabolic Eew986 CL 103 mEq/L 02/14/2016 Comp Metabolic Ghf326 CO2 27.0 mEq/L 02/14/2016 Comp Metabolic Bdw443 AN ION GAP 13 02/14/2016 Comp Metabolic Lgr601 GL UCOSE 91 mg/dL 02/14/2016 Comp Metabolic Cle849 Cr eat 1.0 mg/dL 02/14/2016 Comp Metabolic Ruc885 eG FR 58 ml/min/1.73m2 02/13 Comp Metabolic Tkv116 BUN 16 mg/dL 02/14/2016 Comp Metabolic Rhu813 B/ C Ratio 16.2 Ratio 02/14/2016 Comp Metabolic Fms795 CA LCIUM 9.0 mg/dL 02/14/2016 Comp Metabolic Pby650 AL K PHOS 88 U/L 02/14/2016 Comp Metabolic Llp964 T(SGOT) 17 U/L 02/14/2016 Comp Metabolic Jlx348 AL T(SGPT) 12 U/L 02/14/2016 Comp Metabolic Fzu535 BI LI T 0.6 mg/dL 02/14/2016 Comp Metabolic Zij641 AL BUMIN 3.2 g/dL 02/14/2016 Comp Metabolic Xvv999 TP RO 5.8 g/dL 02/14/2016 Comp Metabolic Nhc512 GL OB 2.6 g/dL 02/14/2016 Comp Metabolic Dlm244 A/ G Ratio 1.3 Ratio 02/14/2016 Comp Metabolic Djp820 Os mo 278 mOsmo 02/14/2016 Pt Hxe1638 PT 34.6 seconds 02/06/2016 Pt Ysb6079 INR 3.7 02/06/2016 Pt Kfm9354 Low Intensity - 1.5-2.0 02/06/2016 Pt Fah2435 Mod intensity - 2.0-3.0 02/06/2016 Pt Pzg1387 Hi intensity - 3.0-4.0 02/06/2016 Pt Bqi9977 PT 33.3 seconds 01/23/2016 Pt Lya8589 INR 3.5 01/23/2016 Pt Ttk9353 Low Intensity - 1.5-2.0 01/23/2016 Pt Xrp0566 Mod intensity - 2.0-3.0 01/23/2016 Pt Fds9117 Hi intensity - 3.0-4.0 01/23/2016 Pt Zfx6678 PT 30.5 seconds 12/31/2015 Pt Scw1575 INR 3.2 12/31/2015 Pt Hdb1632 Low Intensity - 1.5-2.0 12/31/2015 Pt Rhr5480 Mod intensity - 2.0-3.0 12/31/2015 Pt Tqh4966 Hi intensity - 3.0-4.0 12/31/2015 Pt Awj0529 PT 35.6 seconds 12/25/2015 Pt Vol1733 INR 3.9 12/25/2015 Pt Xmk1364 Low Intensity - 1.5-2.0 12/25/2015 Pt Inp7273 Mod intensity - 2.0-3.0 12/25/2015 Pt Thh8806 Hi intensity - 3.0-4.0 12/25/2015 Pt Wpx2512 PT 30.8 seconds 11/21/2015 Pt Mwt3868 INR 3.2 11/21/2015 Pt Afz2725 Low Intensity - 1.5-2.0 11/21/2015 Pt Ewq6164 Mod intensity - 2.0-3.0 11/21/2015 Pt Lcr0863 Hi intensity - 3.0-4.0 11/21/2015 Uric Acid [...] 30.0 pg 11/20/2015 Cbc With Differential Ord2 [place]% 8.1 % 11/20/2015 Cbc With Differential Ord2 [...] 2.51 K/ul 11/20/2015 Cbc With Differential Ord2 [place] ABS# 0.9 K/ul 11/20/2015 Cbc With Differential Ord2 Eos ABS# 0.3 K/ul 11/20/2015 Cbc With Differential Ord2 Baso ABS# 0.0 K/ul 11/20/2015 Comp Metabolic Hcy314 NA 137 mEq/L 10/22/2015 Comp Metabolic Ctm475 K 3.9 mEq/L 10/22/2015 Comp Metabolic Xem921 CL 100 mEq/L 10/22/2015 Comp Metabolic Czj252 CO2 31.0 mEq/L 10/22/2015 Comp Metabolic Dsx309 AN ION GAP 10 10/22/2015 Comp Metabolic Xnt707 GL UCOSE 94 mg/dL 10/22/2015 Comp Metabolic Qni995 Cr eat 1.0 mg/dL 10/22/2015 Comp Metabolic Vig679 eG FR 55 ml/min/1.73m2 10/21 Comp Metabolic Eiz538 BUN 19 mg/dL 10/22/2015 Comp Metabolic Tap310 B/ C Ratio 18.3 Ratio 10/22/2015 Comp Metabolic Pze655 CA LCIUM 8.8 mg/dL 10/22/2015 Comp Metabolic Aeg135 AL K PHOS 83 U/L 10/22/2015 Comp Metabolic Afy571 T(SGOT) 15 U/L 10/22/2015 Comp Metabolic Btw880 AL T(SGPT) 13 U/L 10/22/2015 Comp Metabolic Ntf781 BI LI T 0.9 mg/dL 10/22/2015 Comp Metabolic Bjp604 AL BUMIN 2.8 g/dL 10/22/2015 Comp Metabolic Hhe053 TP RO 5.4 g/dL 10/22/2015 Comp Metabolic Mcz601 GL OB 2.6 g/dL 10/22/2015 Comp Metabolic She594 A/ G Ratio 1.1 Ratio 10/22/2015 Comp Metabolic Oyi804 Os mo 276 mOsmo 10/22/2015 Bili D Ord93 BILI D 0.1 mg/dL 10/22/2015 Bili D Ord93 BILI I 0.8 mg/dL 10/22/2015 Pt Ohq4321 PT 22.8 seconds 10/22/2015 Pt Rdq7064 INR 2.1 10/22/2015 Pt Dhk8646 Low Intensity - 1.5-2.0 10/22/2015 Pt Nlv8388 Mod intensity - 2.0-3.0 10/22/2015 Pt Irz2209 Hi intensity - 3.0-4.0 10/22/2015 Pt Hbg7453 PT 28.0 seconds 09/16/2015 Pt Kca8607 INR 2.7 09/16/2015 Pt Kwk9773 Low Intensity - 1.5-2.0 09/16/2015 Pt Dll5540 Mod intensity - 2.0-3.0 09/16/2015 Pt Cnv9666 Hi intensity - 3.0-4.0 09/16/2015 Tsh Ord6 hTSH II 1.40 uIU/mL 09/16/2015 Free T4 Hbd518 FREE T4 1.73 ng/dL 09/16/2015 Lipid Ord30 CHOL 169 mg/dL 09/16/2015 Lipid Ord30 HDL 66.0 mg/dl 09/16/2015 Lipid Ord30 TRIG 78 mg/dL 09/16/2015 Lipid Ord30 LDL 87 mg/dL 09/16/2015 Lipid Ord30 C/HDL 2.6 Ratio 09/16/2015 Pt Tbk3867 PT 26.6 seconds 08/21/2015 Pt Xfd7701 INR 2.6 08/21/2015 Pt Jfj0771 Low Intensity - 1.5-2.0 08/21/2015 Pt Nuj9051 Mod intensity - 2.0-3.0 08/21/2015 Pt Ykx0007 Hi intensity - 3.0-4.0 08/21/2015 Comp Metabolic Bhe708 NA 141 mEq/L 08/08/2015 Comp Metabolic Fgy918 K 3.3 mEq/L 08/08/2015 Comp Metabolic Oye761 CL 102 mEq/L 08/08/2015 Comp Metabolic Boz549 CO2 31.0 mEq/L 08/08/2015 Comp Metabolic Ett942 AN ION GAP 11 08/08/2015 Comp Metabolic Qgd231 GL UCOSE 83 mg/dL 08/08/2015 Comp Metabolic Joh988 Cr eat 1.0 mg/dL 08/08/2015 Comp Metabolic Ika142 eG FR 55 ml/min/1.73m2 08/08 Comp Metabolic Iaf523 BUN 19 mg/dL 08/08/2015 Comp Metabolic Mct561 B/ C Ratio 18.3 Ratio 08/08/2015 Comp Metabolic Cfj346 CA LCIUM 8.9 mg/dL 08/08/2015 Comp Metabolic Ipw457 AL K PHOS 84 U/L 08/08/2015 Comp Metabolic Knq573 T(SGOT) 20 U/L 08/08/2015 Comp Metabolic Aan806 AL T(SGPT) 18 U/L 08/08/2015 Comp Metabolic Emh969 BI LI T 0.6 mg/dL 08/08/2015 Comp Metabolic Tyn283 AL BUMIN 3.3 g/dL 08/08/2015 Comp Metabolic Cfk397 TP RO 5.9 g/dL 08/08/2015 Comp Metabolic Eij051 GL OB 2.6 g/dL 08/08/2015 Comp Metabolic Apk839 A/ G Ratio 1.3 Ratio 08/08/2015 Comp Metabolic Cgn066 Os mo 283 mOsmo 08/08/2015 Cbc With [...] 30.0 pg 08/08/2015 Cbc With Differential Ord2 [place]% 8.2 % 08/08/2015 Cbc With Differential Ord2 [...] 2.90 K/ul 08/08/2015 Cbc With Differential Ord2 [place] ABS# 0.9 K/ul 08/08/2015 Cbc With Differential [...] Ord93 BILI I 0.5 mg/dL 08/08/2015 Pt Uwl8907 PT 31.8 seconds 08/05/2015 Pt Tpz5227 INR 3.2 08/05/2015 Pt Oqp1421 Low Intensity - 1.5-2.0 08/05/2015 Pt Rts8290 Mod intensity - 2.0-3.0 08/05/2015 Pt Oth9717 Hi intensity - 3.0-4.0 08/05/2015 Pt Cxb1097 PT 27.4 seconds 06/27/2015 Pt Cmc0758 INR 2.6 06/27/2015 Pt Ypm2831 Low Intensity - 1.5-2.0 06/27/2015 Pt Ikp4700 Mod intensity - 2.0-3.0 06/27/2015 Pt Ptz8751 Hi intensity - 3.0-4.0 06/27/2015 Tsh Ord6 [...] Ord2 RDW 15.1 % 05/31/2015 Free T4 Tmi724 FREE T4 1.89 ng/dL 05/31/2015 Comp Metabolic Sxe625 NA 140 mEq/L 05/31/2015 Comp Metabolic Tqu971 K 3.3 mEq/L 05/31/2015 Comp Metabolic Ryi641 CL 99 mEq/L 05/31/2015 Comp Metabolic Qyz089 CO2 30.0 mEq/L 05/31/2015 Comp Metabolic Irw820 AN ION GAP 14 05/31/2015 Comp Metabolic Xfq240 GL UCOSE 70 mg/dL 05/31/2015 Comp Metabolic Lrv615 Cr eat 1.0 mg/dL 05/31/2015 Comp Metabolic Avh407 eG FR 55 ml/min/1.73m2 05/31 Comp Metabolic Ldf755 BUN 23 mg/dL 05/31/2015 Comp Metabolic Vqr591 B/ C Ratio 22.1 Ratio 05/31/2015 Comp Metabolic Kzb685 CA LCIUM 8.9 mg/dL 05/31/2015 Comp Metabolic Asa451 AL K PHOS 86 U/L 05/31/2015 Comp Metabolic Smn215 T(SGOT) 28 U/L 05/31/2015 Comp Metabolic Fvj964 AL T(SGPT) 30 U/L 05/31/2015 Comp Metabolic Xzk396 BI LI T 0.4 mg/dL 05/31/2015 Comp Metabolic Izf686 AL BUMIN 3.3 g/dL 05/31/2015 Comp Metabolic Imd885 TP RO 6.0 g/dL 05/31/2015 Comp Metabolic Bvt578 GL OB 2.7 g/dL 05/31/2015 Comp Metabolic Adb237 A/ G Ratio 1.2 Ratio 05/31/2015 Comp Metabolic Zdw500 Os mo 282 mOsmo 05/31/2015 Pt Pcx7378 PT 23.3 seconds 04/15/2015 Pt Ukg9776 INR 2.2 04/15/2015 Pt Icc4382 Low Intensity - 1.5-2.0 04/15/2015 Pt Adt1162 Mod intensity - 2.0-3.0 04/15/2015 Pt Whg2784 Hi intensity - 3.0-4.0 04/15/2015 Pt Dau8582 PT 19.5 seconds 04/04/2015 Pt Zcn6788 INR 1.7 04/04/2015 Pt Fha4061 Low Intensity - 1.5-2.0 04/04/2015 Pt Jme2566 Mod intensity - 2.0-3.0 04/04/2015 Pt Mhh4390 Hi intensity - 3.0-4.0 04/04/2015 Pt Jti6615 PT 39.8 seconds 04/01/2015 Pt Sxl7778 INR 4.3 04/01/2015 Pt Lfr3984 Low Intensity - 1.5-2.0 04/01/2015 Pt Tix9627 Mod intensity - 2.0-3.0 04/01/2015 Pt Itx4456 Hi intensity - 3.0-4.0 04/01/2015 Metabolic Ord15 [...] Metabolic Ord15 CALCIUM 8.7 mg/dL 02/28/2015 Pt Mic0820 PT 31.4 seconds 02/28/2015 Pt Iss7468 INR 3.2 02/28/2015 Pt Zur2233 Low Intensity - 1.5-2.0 02/28/2015 Pt Mpx0730 Mod intensity - 2.0-3.0 02/28/2015 Pt Eua9807 Hi intensity - 3.0-4.0 02/28/2015 Pt Owc2379 PT 23.2 seconds 01/18/2015 Pt Abu6240 INR 2.1 01/18/2015 Pt Qot4477 Low Intensity - 1.5-2.0 01/18/2015 Pt Zce5416 Mod intensity - 2.0-3.0 01/18/2015 Pt Xai7078 Hi intensity - 3.0-4.0 01/18/2015 Pt Klf7623 PT 18.2 seconds 01/10/2015 Pt Vop2497 INR 1.6 01/10/2015 Pt Rsa2431 Low Intensity - 1.5-2.0 01/10/2015 Pt Ggp1983 Mod intensity - 2.0-3.0 01/10/2015 Pt Dam4294 Hi intensity - 3.0-4.0 01/10/2015 Review of [...] accomodation 03/07/2019 None Full Exam - General 1995 Ears/Nose/Throat otoscopic exam Overall: external auditory canals clear 03/07/2019 None Full Exam - General 1994 Ears/Nose/Throat otoscopic exam Overall: tympanic membranes clear 03/07/2019 None Full Exam - General 1995 Ears/Nose/Throat lips/teeth/gingiva Overall: benign lips 03/07/2019 None Full Exam - General 1995 Ears/Nose/Throat lips/teeth/gingiva Overall: normal dentition 03/07/2019 None Full Exam - General 1995 Ears/Nose/Throat lips/teeth/gingiva Overall: benign gingiva 03/07/2019 None Full Exam - General 1995 Ears/Nose/Throat lips/teeth/gingiva Overall: no masses 03/07/2019 None Full Exam - General 1995 [...] gingiva 01/31/2019 None Full Exam - General 1995 Ears/Nose/Throat lips/teeth/gingiva Overall: no masses 01/31/2019 None [...] General 1994 Eyes conjunctiva/eyelids Overall: eyelids normal 01/10/2019 None [...] gingiva 12/05/2018 None Full Exam - General 1995 Ears/Nose/Throat lips/teeth/gingiva Overall: no masses 12/05/2018 None [...] General 1994 Ears/Nose/Throat lips/teeth/gingiva Overall: benign lips 09/27/2018 None Full Exam - General 1994 Ears/Nose/Throat lips/teeth/gingiva Overall: normal dentition 09/27/2018 None Full Exam - General 1994 Ears/Nose/Throat lips/teeth/gingiva Overall: benign gingiva 09/27/2018 None [...] lips 07/11/2018 None Full Exam - General 1995 Ears/Nose/Throat lips/teeth/gingiva Overall: normal dentition 07/11/2018 None Full Exam - General 1995 Ears/Nose/Throat lips/teeth/gingiva Overall: benign gingiva 07/11/2018 None Full Exam - General 1995 Ears/Nose/Throat lips/teeth/gingiva Overall: no masses 07/11/2018 None [...] General 1994 Ears/Nose/Throat lips/teeth/gingiva Overall: benign lips 03/24/2018 None Full Exam - General 1995 Ears/Nose/Throat lips/teeth/gingiva Overall: normal dentition 03/24/2018 None Full Exam - General 1994 Ears/Nose/Throat lips/teeth/gingiva Overall: benign gingiva 03/24/2018 None Full Exam - General 1995 Ears/Nose/Throat lips/teeth/gingiva Overall: no masses 03/24/2018 None Full Exam - General 1994 Ears/Nose/Throat oral cavity/pharynx/larynx Overall: oral mucosa clear 03/24/2018 None Full Exam - General 1994 Ears/Nose/Throat oral cavity/pharynx/larynx Overall: oropharyngeal mucosa clear 03/24/2018 None Full Exam - General 1994 Ears/Nose/Throat oral cavity/pharynx/larynx Overall: no masses 03/24/2018 [...] contact 10/13/2016 None Full Exam - General 1994 Integument inspection of skin Pigmentation: erythematous 10/13/2016 [...] rhythm 07/31/2016 None Full Exam - General 1994 Constitutional general appearance Overall: well developed 05/01/2016 [...] Date URINALYSIS NONAUTO W /O SCOPE CPT-4: 77886 01/10/2019 URINALYSIS NONAUTO W /O SCOPE CPT-4: 04283 12/05/2018 ROCEPHIN, PER 250 MG CPT-4: J0696 10/27/2018 URINALYSIS NONAUTO W /O SCOPE CPT-4: 49520 10/27/2018 ADMIN INFLUENZA VIRU S VAC CPT-4: G0008 03/24/2018 ADMIN PNEUMOCOCCAL V ACCINE SNOMED CT: 24768372 CPT-4: G0009 03/24/2018 FLU VACC PRSV FREE I NC ANTIG Formatting Model/CDA Sections, Assigned to/Dorothea Tan CPT-4: 84846Yecvequ 03/24/2018 Pneumococcal Polysac charide Vaccine, 23-Valent, Ad CPT-4: 11802 03/24/2018 TRIAMCINOLONE ACET I [place] NOS CPT-4: J3301 06/15/2017 THER/PROPH/DIAG INJ SC/IM CPT-4: 40969 06/15/2017 ADMIN PNEUMOCOCCAL V ACCINE SNOMED CT: 07504873 CPT-4: G0009 03/16/2017 ADMIN INFLUENZA VIRU S VAC CPT-4: G0008 03/16/2017 FLU VAC NO PRSV 4 VA L 3 YRS+ CPT-4: 08261 03/16/2017 PNEUMOCOCCAL VACC [address]: [id number] CPT-4: 54010 03/16/2017 URINALYSIS NONAUTO W /O SCOPE CPT-4: 67939 08/26/2016 THER/PROPH/DIAG INJ SC/IM CPT-4: 74307 07/22/2016 TRIAMCINOLONE ACET I [place] NOS CPT-4: J3301 07/22/2016 ROCEPHIN, PER 250 MG CPT-4: J0696 07/22/2016 TRIAMCINOLONE ACET I [place] NOS CPT-4: J3301 02/05/2015 Vital Signs Date Vital 03/07/2019 Blood Pressure 1: 110/68 Code: 8480-6 Heart Rate 1: 96 bpm Height: 5'7" SpO2: 99% Weight: 01/31/2019 Blood Pressure 1: 100/60 Code: 8480-6 BMI: 33.4 Code: 49353-1 Heart Rate 1: 85 bpm Height: 5'7" SpO2: 97% Weight: 213 lbs 01/10/2019 BMI: 32.9 Code: 72424-7 Heart Rate 1: 74 bpm Height: 5'7" Weight: 210 lbs 12/05/2018 Blood Pressure 1: 132/70 Code: 8480-6 BMI: 32.4 Code: 35772-2 Heart Rate 1: 84 bpm Height: 5'7" SpO2: 91% Weight: 207 lbs 11/17/2018 Blood Pressure 1: 102/62 Code: 8480-6 BMI: 32.4 Code: 51475-6 Heart Rate 1: 83 bpm Height: 5'7" SpO2: 94% Weight: 207 lbs 10/27/2018 Blood Pressure 1: 120/74 Code: 8480-6 BMI: 32.4 Code: 77695-4 Heart Rate 1: 65 bpm Height: 5'7" SpO2: 97% Weight: 207 lbs 09/27/2018 Blood Pressure 1: 128/74 Code: 8480-6 BMI: 32.4 Code: 91468-1 Heart Rate 1: 92 bpm Height: 5'7" SpO2: 97% Weight: 207 lbs 08/16/2018 Blood Pressure 1: 104/66 Code: 8480-6 BMI: 32.3 Code: 03043-3 Heart Rate 1: 94 bpm Height: 5'7" SpO2: 96% Weight: 206 lbs 07/11/2018 Blood Pressure 1: 102/68 Code: 8480-6 BMI: 34.5 Code: 75772-9 Heart Rate 1: 101 bpm Height: 5'7" SpO2: 98% Weight: 220 lbs 03/24/2018 Blood Pressure 1: 130/72 Code: 8480-6 BMI: 33.4 Code: 89863-3 Heart Rate 1: 82 bpm Height: 5'7" SpO2: 93% Weight: 213 lbs 11/18/2017 Blood Pressure 1: 128/70 Code: 8480-6 BMI: 33.6 Code: 51504-0 Heart Rate 1: 98 bpm Height: 5'7" SpO2: 97% Weight: 214 lbs 8 oz 09/30/2017 Blood Pressure 1: 100/50 Code: 8480-6 BMI: 34.0 Code: 46516-4 Heart Rate 1: 66 bpm Height: 5'7" SpO2: 96% Weight: 217 lbs 08/17/2017 Blood Pressure 1: 104/60 Code: 8480-6 BMI: 33.7 Code: 36070-7 Heart Rate 1: 99 bpm Height: 5'7" SpO2: 97% Weight: 215 lbs 06/15/2017 Blood Pressure 1: 120/64 Code: 8480-6 BMI: 33.5 Code: 97002-4 Heart Rate 1: 91 bpm Height: 5'7" SpO2: 94% Weight: 214 lbs 04/01/2017 Blood Pressure 1: 110/68 Code: 8480-6 BMI: 154.4 Code: 90851-6 Heart Rate 1: 66 bpm Height: 2'7" SpO2: 95% Weight: 211 lbs 03/16/2017 Blood Pressure 1: 130/72 Code: 8480-6 BMI: 33.0 Code: 73072-7 Heart Rate 1: 95 bpm Height: 5'7" SpO2: 97% Weight: 211 lbs 02/09/2017 Blood Pressure 1: 120/70 Code: 8480-6 BMI: 32.9 Code: 48193-1 Heart Rate 1: 78 bpm Height: 5'7" SpO2: 96% Weight: 210 lbs 10/13/2016 Blood Pressure 1: 118/76 Code: 8480-6 BMI: 32.6 Code: 41811-0 Heart Rate 1: 97 bpm Height: 5'7" SpO2: 98% Weight: 208 lbs 07/31/2016 Blood Pressure 1: 110/64 Code: 8480-6 BMI: 32.1 Code: 83296-9 Heart Rate 1: 79 bpm Height: 5'7" SpO2: 94% Weight: 205 lbs 07/22/2016 Blood Pressure 1: 108/74 Code: 8480-6 BMI: 32.1 Code: 03911-8 Heart Rate 1: 71 bpm Height: 5'7" SpO2: 97% Temperature: 36.9 (C ) / 98.4 (F) Weight: 205 lbs 05/01/2016 Blood Pressure 1: 120/72 Code: 8480-6 BMI: 32.7 Code: 45186-1 Heart Rate 1: 75 bpm Height: 5'7" SpO2: 94% Weight: 209 lbs 04/06/2016 Blood Pressure 1: 106/62 Code: 8480-6 BMI: 32.7 Code: 13328-5 Heart Rate 1: 83 bpm Height: 5'7" SpO2: 97% Weight: 209 lbs 03/06/2016 Blood Pressure 1: 112/68 Code: 8480-6 BMI: 32.7 Code: 62284-5 Heart Rate 1: 90 bpm Height: 5'7" SpO2: 97% Weight: 209 lbs 03/03/2016 Blood Pressure 1: 120/62 Code: 8480-6 BMI: 32.7 Code: 04682-3 Heart Rate 1: 92 bpm Height: 5'7" SpO2: 98% Weight: 209 lbs 02/07/2016 Blood Pressure 1: 110/64 Code: 8480-6 BMI: 32.7 Code: 20755-5 Heart Rate 1: 87 bpm Height: 5'7" SpO2: 97% Weight: 209 lbs 12/13/2015 Blood Pressure 1: 110/64 Code: 8480-6 BMI: 33.5 Code: 78581-7 Heart Rate 1: 90 bpm Height: 5'7" SpO2: 97% Weight: 214 lbs 12/03/2015 Blood Pressure 1: 132/76 Code: 8480-6 BMI: 33.4 Code: 34098-5 Heart Rate 1: 82 bpm Height: 5'7" SpO2: 99% Weight: 213 lbs 11/20/2015 Blood Pressure 1: 108/68 Code: 8480-6 BMI: 32.4 Code: 62365-6 Heart Rate 1: 77 bpm Height: 5'7" SpO2: 97% Weight: 207 lbs 09/17/2015 Blood Pressure 1: 122/76 Code: 8480-6 BMI: 33.0 Code: 41863-0 Heart Rate 1: 91 bpm Height: 5'7" SpO2: 97% Weight: 211 lbs 05/31/2015 Blood Pressure 1: 128/82 Code: 8480-6 BMI: 33.4 Code: 33954-8 Heart Rate 1: 98 bpm Height: 5'7" SpO2: 99% Weight: 213 lbs 02/05/2015 Blood Pressure 1: 128/80 Code: 8480-6 BMI: 32.6 Code: 55054-8 Heart Rate 1: 86 bpm Height: 5'7" SpO2: 97% Weight: 208 lbs 11/20/2014 Blood Pressure 1: 128/90 Code: 8480-6 BMI: 30.9 Code: 98844-2 Heart Rate 1: 94 bpm Height: 5'7" [...] ongoing 11/20/2015 None Hospital Follow Up _ [facility] er: fall 09/17/2015 None Hospital Follow Up [...] Findings Denies fever 05/31/2015 None hypothyroid 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 P ATIENT, LEVEL IV Diagnosis: Essential (primary) hypertension[ICD10: I10] Diagnosis: Atrophy of thyroid (acquired)[ICD10: E03.4] Diagnosis: Chronic atrial fibrillation[ICD10: I48.2] Diagnosis: Low back pain[ICD10: M54.5] Valerie Pisano MD, [facility] CPT-4: 92716 03/07/2019 ([id number]) 30395 EST. P ATIENT, LEVEL IV Diagnosis: Atrophy of thyroid (acquired)[ICD10: E03.4] Diagnosis: Other fatigue[ICD10: R53.83] Diagnosis: Other hypotension[ICD10: I95.89] Valerie Pisano MD, [facility] CPT-4: 95950 01/31/2019 37928 EST. PATIENT, LEVEL III Diagnosis: Dysuria[ICD10: R30.0] Roxie Pisano MD, [facility] CPT-4: 36037 01/10/2019 ([id number]) 65751 EST. P ATIENT, LEVEL III Diagnosis: Urinary tract infection, site not specified[ICD10: N39.0] Brielle Pisano MD, [facility] CPT-4: 07681 12/05/2018 ([id number]) 31301 EST. 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 P ATIENT, LEVEL III Diagnosis: Urinary tract infection, site not specified[ICD10: N39.0] Brielle Pisano MD, [facility] CPT-4: 53049 10/27/2018 ([id number]) 34533 EST. 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 P ATIENT, LEVEL IV Diagnosis: Atrophy of thyroid (acquired)[ICD10: E03.4] Diagnosis: Essential (primary) hypertension[ICD10: I10] Diagnosis: Other fatigue[ICD10: R53.83] Diagnosis: Localized edema[ICD10: R60.0] Valerie Pisano MD, [facility] CPT-4: 11889 07/11/2018 ([id number]) 52367 EST. 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 P ATIENT, LEVEL IV Diagnosis: Essential (primary) hypertension[ICD10: I10] Diagnosis: Atrophy of thyroid (acquired)[ICD10: E03.4] Diagnosis: Chronic atrial fibrillation[ICD10: I48.2] Valerie Pisano MD, C CPT-4: 56003 11/18/2017 30734 EST. PATIENT, LEVEL IV Diagnosis: Localized edema[ICD10: R60.0] Roxie Pisano MD, [facility] CPT-4: 83601 09/30/2017 ([id number]) 57810 EST. P ATIENT, LEVEL III Diagnosis: Essential (primary) hypertension[ICD10: I10] Valerie Pisano MD, C CPT-4: 34069 08/17/2017 ([id number]) 14064 EST. 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 PATIENT, LEVEL III Diagnosis: Laceration without foreign body of other finger without damage to nail, initial encounter[ICD10: S61.218A] Roxie Pisano MD, [facility] CPT-4: 18512 04/01/2017 ([id number]) 08519 EST. 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 P [facility], LEVEL IV Diagnosis: Essential (primary) hypertension[ICD10: I10] Diagnosis: Chronic atrial fibrillation[ICD10: I48.2] Diagnosis: Tinea corporis[ICD10: B35.4] Diagnosis: [facility] (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[ICD10: Z79.01] Diagnosis: Other skin changes[ICD10: R23.8] Valerie Pisano MD, [facility] CPT-4: 71418 10/13/2016 99370 EST. PATIENT, LEVEL III Diagnosis: Other acute sinusitis[ICD10: J01.80] Diagnosis: Other allergic rhinitis[ICD10: J30.89] Roxie Pisano MD, [facility] CPT-4: 91479 07/31/2016 ([id number]) 07871 EST. P [facility], LEVEL III Diagnosis: Acute recurrent maxillary sinusitis[ICD10: J01.01] Valerie Pisano MD, C CPT-4: 85535 07/22/2016 25138 EST. PATIENT, LEVEL IV Diagnosis: Essential (primary) hypertension[ICD10: I10] Diagnosis: Other allergic rhinitis[ICD10: J30.89] Diagnosis: Localized edema[ICD10: R60.0] Roxie Pisano MD, [facility] CPT-4: 98823 05/01/2016 25379 EST. PATIENT, LEVEL III Diagnosis: Cellulitis of left lower limb[ICD10: L03.116] Diagnosis: Localized edema[ICD10: R60.0] Roxie Pisano MD, [facility] CPT-4: 50049 04/06/2016 ([id number]) Miscellaneou s no charge Diagnosis: Cellulitis of left lower limb[ICD10: L03.116] Diagnosis: Localized edema[ICD10: R60.0] Roxie Pisano MD, [facility] CPT-4: 49488 03/10/2016 ([id number]) Miscellaneou s no charge Diagnosis: Cellulitis of left lower limb[ICD10: L03.116] Roxie Pisano MD, [facility] CPT-4: 65028 03/06/2016 57332 EST. PATIENT, LEVEL IV Diagnosis: Cellulitis of left lower limb[ICD10: L03.116] Diagnosis: Localized edema[ICD10: R60.0] Roxie Pisano MD, [facility] CPT-4: 70752 03/03/2016 ([id number]) 58164 EST. P ATIENT, LEVEL III Diagnosis: Essential (primary) hypertension[ICD10: I10] Diagnosis: [facility] (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[ICD10: Z79.01] Diagnosis: Chronic atrial fibrillation[ICD10: I48.2] Brielle Pisano MD, [facility] CPT-4: 98345 02/07/2016 ([id number]) 91254 EST. P ATIENT, LEVEL III Diagnosis: Iliotibial band syndrome, right leg[ICD10: M76.31] Diagnosis: Localized edema[ICD10: R60.0] Brielle Pisano MD, [facility] CPT- 4: 72645 12/13/2015 ([id number]) 26048 EST. P ATIENT, LEVEL III Diagnosis: Localized edema[ICD10: R60.0] Diagnosis: Essential (primary) hypertension[ICD10: I10] Brielle Pisano MD, [facility] CPT-4: 57051 12/03/2015 ([id number]) 89410 EST. P ATIENT, LEVEL IV Diagnosis: [facility] (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[ICD10: Z79.01] Diagnosis: Other skin changes[ICD10: R23.8] Diagnosis: Localized edema[ICD10: R60.0] Diagnosis: Pain in right foot[ICD10: M79.671] Valerie Pisano MD, [facility] CPT- 4: 93974 11/20/2015 13776 EST. PATIENT, LEVEL IV Diagnosis: Essential (primary) hypertension[ICD10: I10] Diagnosis: [facility] (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[ICD10: Z79.01] Diagnosis: Muscle spasm of back[ICD10: M62.830] Roxie Pisano MD, [facility] CPT- 4: 84687 09/17/2015 ([id number]) 36432 EST. P ATIENT, LEVEL IV Diagnosis: Localized edema[ICD10: R60.0] Diagnosis: Other specified hypothyroidism[ICD10: E03.8] Diagnosis: Essential (primary) hypertension[ICD10: I10] [facility] CPT-4: 43959 05/31/2015 ([id number]) 26212 EST. P [facility], LEVEL III Diagnosis: ALLERGIC RHINITIS[ICD9: 477.9] Diagnosis: ESSENTIAL HYPERTENSION[ICD9: 401.9] [facility] CPT-4: 31267 02/05/2015 ([id number]) OFFICE VISI T, NEW - LEVEL 4 Diagnosis: ESSENTIAL HYPERTENSION[ICD9: 401.9] Diagnosis: HYPOTHYROIDISM[ICD9: 244.9] Diagnosis: ACTINIC KERATOSIS[ICD9: 702.0] Valerie Pisano MD, [facility] CPT-4: 37118 11/20/2014 Plan of Care Planned Activity Notes [...] of control. 03/07/2019 Appointment: Valerie Pisano WPtel: [address] [place], [place] [address] (15 min) Moderate 03/07/2019 Patient Education: Patient [...] dose diuretic. 01/31/2019 Appointment: Valerie Pisano WPtel: [facility]6 [facility]66[facility] (15 min) Moderate 01/31/2019 Patient Education: Patient Medication Summary Completed 01/31/2019 Visit Plan: Dysuria - negative UA - pt is to increase her fluid intake and notify clinic if symptoms do not improve, if they worsen, or with any other changes, questions, or concerns. 01/10/2019 Appointment: Roxie Cazares WPtel: [facility]1 [facility]66[facility] (30 min) Complex 01/10/2019 Patient Education: Patient Medication Summary Completed 01/10/2019 Visit Plan: UTI - pt with positive urinalysis - culture sent if appropriate. Antibiotic electronically prescribed to pt's pharmacy of choice. Pt to call if symptoms do not improve. 12/05/2018 Appointment: Brielle Cavazos WPtel: [facility]0 [phone] (30 min) Complex 12/05/2018 Patient Education: Patient Medication Summary Completed 12/05/2018 Care Plan: Urine Culture Pending 12/05/2018 Visit Plan: Contusion -right lower leg -continue to monitor symptoms -call if does not resolve or other symptoms develop. Patient verbalized understanding of plan. [facility] use of anti coagulants -check PT/INR 11/17/2018 Appointment: Brielle Cavazos WPtel: [phone] [phone] (30 min) Complex 11/17/2018 Patient Education: Patient Medication Summary Completed 11/17/2018 Visit Plan: UTI - pt with positive urinalysis - culture sent if appropriate. Antibiotic electronically prescribed to pt's pharmacy of choice. Pt to call if symptoms do not improve. 10/27/2018 Appointment: [facility] Cav[facility]os [facility]Ptel[phone] [phone] (10 min) Simple 10/27/2018 Patient Education: [...] Dr. Hernandez. 09/27/2018 Appointment: Valerie Pisano WPtel: [phone] (15 min) Moderate 09/27/2018 Patient Education: Patient [...] 4mg daily. 08/16/2018 Appointment: Valerie Pisano WPtel: [phone] [facility] (15 min) Moderate 08/16/2018 Patient Education: Patient Medication Summary Completed 08/16/2018 Patient Education: Hypertension Completed 08/16/2018 Patient Education: Patient Medication Summary Completed 07/29/2018 Appointment: Brielle Cavazos WPtel: [phone] [phone] [place] (15 min) Moderate 07/12/2018 Visit Plan: [...] twice daily. 07/11/2018 Appointment: Valerie Pisano WPtel: [phone] [facility] [place] (15 min) Moderate 07/11/2018 Patient Education: Patient [...] today. 03/24/2018 Appointment: Valerie Pisano WPtel: [phone] [facility] [place] (15 min) Moderate 03/24/2018 Patient Education: Patient [...] of control. 11/18/2017 Appointment: Valerie Pisano WPtel: [facility] (15 min) Moderate 11/18/2017 Patient Education: Patient Medication Summary Completed 11/18/2017 Referral: [facility] WPtel: [address] Pt notified at appointment Appointment Confirmed 10/01/2017 [...] Unna Boots 09/30/2017 Appointment: Roxie Cazares WPtel: [address] [place] [address] (30 min) Complex 09/30/2017 Patient Education: Patient Medication Summary Completed 09/30/2017 Care Plan: Referral Order SNOMED-CT : [id number] Pending 09/30/2017 Visit Plan: Hypertension - well [...] this time. 08/17/2017 Appointment: Valerie Pisano WPtel: [facility]7 [facility]66[facility] (15 min) Moderate 08/17/2017 Patient Education: Patient [...] neck muscles. allergies - kenalog 40mg im [employer] squ[employer] - lot # [id number] expires september 2018 06/15/2017 Visit Plan: Hypertension [...] neck muscles. 06/15/2017 Appointment: Valerie Pisano WPtel: [address] [place], [place] [address] (15 min) Moderate 06/15/2017 Patient Education: Patient Medication Summary Completed 06/15/2017 Care Plan: Referral Order SNOMED-CT : [id number] Pending 06/15/2017 Appointment: Nurse Visit 04/05/2017 Appointment: [...] tetanus booster. 04/01/2017 Appointment: Roxie Cazares WPtel: [phone] [facility] (15 min) Moderate 04/01/2017 Patient Education: Patient [...] shot today 03/16/2017 Appointment: Valerie Pisano WPtel: [phone] [place] [place] (15 min) Moderate 03/16/2017 Patient Education: Patient [...] on previous levels of control. 1 pill mon/wed/wed, 1/2 pill //sat/sun take - This is [...] allergy spray. 02/09/2017 Appointment: Valerie Pisano WPtel: [phone] [facility] [place] (15 min) Moderate 02/09/2017 Patient Education: Patient [...] for nystatin 10/13/2016 Appointment: Valerie Pisano WPtel: [phone] [facility] (15 min) Moderate 10/13/2016 Patient Education: Patient Medication Summary Completed 10/13/2016 Patient Education: Obesity Completed 10/13/2016 Patient Education: Hypertension Completed 10/13/2016 Care Plan: Urine Culture Pending 08/31/2016 Appointment: Roxie Cazares WPtel: [phone] [facility] Lab Draw 08/27/2016 Appointment: Nurse Visit 08/26/2016 [...] allergy spray. 07/31/2016 Appointment: Brielle Cavazos WPtel: [phone] [facility] (30 min) Complex 07/31/2016 Patient Education: Patient Medication Summary Completed 07/31/2016 Patient Education: Obesity Completed 07/31/2016 Visit Plan: Sinusitis - Pt has acut e infection - pain in face, maxillary region, Pt informed to use decongestant, RX given to patient, sinus rinses also recommended. Call if symptoms do not show improvement. 07/22/2016 Appointment: Valerie Pisano WPtel: [facility]0 [facility] (15 min) Moderate 07/22/2016 Patient Education: Patient [...] peripheral edema. 05/01/2016 Appointment: Brielle Cavazos WPtel: [phone] [phone] (30 min) Complex 05/01/2016 Patient Education: Patient [...] peripheral edema. 04/06/2016 Appointment: Roxie Cazares WPtel: [facility]5 [facility] (30 min) Complex 04/06/2016 Patient Education: Patient Medication Summary Completed 04/06/2016 Patient Education: Obesity Completed 04/06/2016 Visit Plan: left foot - improved - pt finished with antibiotics - continue to monitor - notify clinic with any concerns. Repeat INR today. 03/10/2016 Appointment: Brielle Cavazos WPtel: [facility]1 [phone] (30 min) Complex 03/10/2016 Patient Education: Patient Medication Summary Completed 03/10/2016 Visit Plan: Cellulitis - continue w ith oral antibiotics as previously directed, return to clinic as previously directed, call for acute change in symptoms, worsening redness, warmth, discharge. 03/06/2016 Appointment: Brielle Cavazos WPtel: [phone] [phone] (15 min) Moderate 03/06/2016 Patient Education: Patient Medication Summary Completed 03/06/2016 Patient Education: Obesity Completed 03/06/2016 Visit Plan: Cellulitis - continue w ith oral antibiotics as previously directed, return to clinic as previously directed, call for acute change in symptoms, worsening redness, warmth, discharge. 03/03/2016 Appointment: Brielle Cavazos WPtel: [address] [place], [place] [phone] [place] [address] (15 min) Moderate 03/03/2016 Patient Education: Patient [...] and 3.5. 02/07/2016 Appointment: Brielle Cavazos WPtel: [address] [place], [place] [phone] (30 min) Complex 02/07/2016 Patient Education: Patient Medication Summary Completed 02/07/2016 Patient Education: Obesity Completed 02/07/2016 Patient Education: Hypertension Completed 02/07/2016 Appointment: Brielle Cavazos WPtel: [address] [place], [place] [phone] (30 min) Complex 02/04/2016 Visit Plan: Iliotibial [...] peripheral edema. 12/13/2015 Appointment: Brielle Cavazos WPtel: [phone] [phone] (15 min) Moderate 12/13/2015 Patient Education: Patient [...] at home. 12/03/2015 Appointment: Brielle Cavazos WPtel: [phone] [phone] (30 min) Complex 12/03/2015 Patient Education: Patient [...] Hypertension Completed 02/05/2015 Appointment: Valerie Pisano WPtel: [address] [place], [place] [address] (15 min) Moderate 01/29/2015 Visit Plan: Hypertension [...] of control. 11/20/2014 Appointment: Valerie Pisano WPtel: [address] [place], [place] [phone] [place] ([place]) New Patient 11/20/2014 Patient Education: Patient Medication Summary Completed 11/20/2014 Patient Education: Hypertension Completed 11/20/2014 Patient Education: Patient Medication Summary Completed 10/19/2014 Referral: [facility] WPtel: Referral Appointment Requested Referral: [facility] WPtel: 1 [facility]66[facility] Referral Appointment Confirmed Instructions Comment . Laceration of left index finger approximately 2 cm long and 1 mm deep - wound cleaned and debrided - ROSLYN and steri strips applied - pt is to return to clinic tomorrow for dressing change and wound check. Abx sent, pt is to check PT/INR on Wednesday. Pt given script for tetanus booster. . Hypertension - wel l controlled - [...] months based on previous levels of control. hold the lisinopril until you get back [...] will then recommend a low dose diuretic. get blood work one w unga before next appt - fasting labs Decrease to 2.5mg (1/2 tab) on Tuesdays/Fridays and 5mg other days Recheck PT/INR in 1 week . Hypertension - well controlled - daylin brookee with current medications, continue with no added [...] of leg - rx for nystatin . Edema - pt has bee n [...] call if bruising does not improve. . left foot - [facility] ed - pt finished with antibiotics - [...] call if symptoms do not improve. . Edema - pt has bee n [...] with any other changes, questions, or concerns. newton cabello or david while on the [...] change in symptoms, worsening redness, warmth, discharge. Check your PT INR on Wednesday or [...] control. 1 pill wed/wed/wed, 1/2 pill // sat/sun take - This is a new order for your thyroid medication - we will repeat your labs in 3 months to check on your thyroid levels Nasal spray- use twice daily, one spray per nostril twice daily, after 30 minutes, rinse out nose with saline spray.. Use opposite hand per nostril to spray in the nasal steroid allergy spray. . Hypertension - wel l controlled - [...] months based on previous levels of control. Monitor your blood p ressure at home [...] Kenalog injection today in the office. . Sinusitis - Pt has acute infection [...] physical therapy - will refer to [facility]. RX for voltaren to neck muscles. allergies - kenalog 40mg im [employer] - lot # [id number] expires september 2018 Decrease to 2.5mg (1 /2 tab) on [...] further attempt to reduce peripheral edema. . Cellulitis - daylin nue with oral antibiotics as previously directed, return to clinic as previously directed, call for acute change in symptoms, worsening redness, warmth, discharge. . Contusion -right l ower leg -continue to monitor symptoms - call if does not resolve or other symptoms develop. Patient verbalized understanding of plan. [facility] use of anti coagulants -check PT/INR . Allergies - chroni c - recommended [...] elevated - decrease coumadin to 4mg daily. . Hypertension - wel l controlled [...] physical therapy - will refer to [facility]. RX for voltaren to neck muscles.
--- OUTSIDE RECORDS SUMMARY | 2019-09-12 10:42 | XMS REPORT | CCD ---
Author Author Clara Pisano Organization Valerie Pisano MD, [facility] Address [address] [place] [address] Phone Care Team Providers Care Esl Instructional Assistant Name Role Phone PP Unavailable CCM Unavailable Summary Purpose Interface Exchange Insurance Providers Payer name Policy type / Coverage type Covered green party ID Effective Begin Date Effective End Date WPS Medicare Part B Medicare Part B [id number] 2018 Unknown [employer] Medicare Part B [id number] Unknown Family history Sister Diagnosis Age At Onset defect Unknown Breast cancer Unknown Daughter Diagnosis Age At Onset Breast cancer Unknown Mother Diagnosis Age At Onset No Family Disease Entered N/A Social History Social History Element Codes Description Effective Dates Marital status Unknown M arried Lane 11/20/2014 Number of children Unknown 6 11/20/2014 Employment Unknown Retir ed 11/20/[address]: 8427390 Quit over 10 years ago 1965 11/20/2014 Alcohol history Unknown occasionally drinks alcohol 11/20/2014 Allergies, Adverse Reactions, Alerts Substance Reaction Codes Entered Date Inactivated Date Status SULFA(SULFONAMIDE AN TIBIOTICS) rash Unknown 11/20/2014 No Inactive Date Active Past Medical History Illness Codes Condition Status Onset Date Resolved Date Atrophy of thyroid ( acquired) ICD-9: 244.8 ICD-10: E03.4 Active 02/09/2017 Unknown Other fatigue ICD-9: 780.79 ICD-10: R53.83 Active 02/11/2016 Unknown Other hypotension ICD-9: 458.8 ICD-10: I95.89 Active 01/31/2019 Unknown Dysuria ICD-9: 788.1 ICD-10: R30.0 Active 08/26/2016 Unknown Urinary tract infect ion, site not specified ICD-9: 599.0 ICD-10: N39.0 Active 02/13/2016 Unknown Contusion of right l ower leg, initial encounter ICD-9: 924.4 ICD-10: S80.11XA 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/2018 Unknown shelter (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 ICD-9: V58.61 ICD-10: Z79.01 Active 02/06/2016 Unknown Chronic atrial fibri llation ICD-9: 427.31 ICD-10: I48.2 Active 02/06/2016 Unknown Essential (primary) hypertension ICD-9: 401.9 ICD-10: I10 Active 04/30/2016 Unknown Other allergic rhinitis ICD-9: 477.8 ICD-10: [...] Unknown HYPOTHYROIDISM ICD-9: 244.9 Active 11/19/2014 Unknown 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 ICD-9: V58.61 Active 10/19/2014 Unknown Problems Condition Codes Effectiv e Dates Condition Status Atrophy of thyroid ( acquired) ICD-9: 244.8 ICD-10: E03.4 02/09/2017 Active Other fatigue ICD-9: 780.79 ICD-10: R53.83 02/11/2016 Active Other hypotension ICD-9: 458.8 ICD-10: I95.89 01/31/2019 Active Dysuria ICD-9: 788.1 ICD-10: R30.0 08/26/2016 Active Urinary tract infect ion, site not specified ICD-9: 599.0 ICD-10: N39.0 02/13/2016 Active Contusion of right l ower leg, initial encounter ICD-9: 924.4 ICD-10: S80.11XA 11/17/2018 Active 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 [employer]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 ICD-9: V58.61 ICD-10: Z79.01 02/06/2016 Active Chronic atrial fibri llation ICD-9: 427.31 ICD-10: I48.2 02/06/2016 Active Essential (primary) hypertension ICD-9: 401.9 ICD-10: I10 04/30/2016 Active Other allergic rhinitis ICD-9: 477.8 ICD-10: [...] 11/19/2014 Active HYPOTHYROIDISM ICD-9: 244.9 11/19/2014 Active 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 ICD-9: V58.61 10/19/2014 Active Medications Medication Codes Instruc tions Start Date Stop Date Sta tus Fill Instructions Pyridium 200 mg tablet RxNorm: 4966991 1 Tablet(s) PO TID PRN 12/05/2018 No Stop Date Active Keflex 500 mg capsule RxNorm: 841621 1 Capsule(s) PO TID 12/05/2018 12/11/2018 Inactive Keflex 500 mg capsule RxNorm: 452856 1 Capsule(s) PO TID 11/17/2018 11/21/2018 Inactive doxycycline hyclate 100 mg capsule RxNorm: 7897723 1 Capsule(s) PO BID 10/31/2018 10/30/2018 In active doxycycline hyclate 100 mg capsule RxNorm: 8940611 1 Capsule(s) PO BID 10/31/2018 11/06/2018 In active Keflex 500 mg capsule RxNorm: 147080 1 Capsule(s) PO TID 10/27/2018 10/30/2018 Inactive ceftriaxone 500 mg s olution for injection RxNorm: 4499059 Inj 10/27/2018 10/27/2018 Inactive Coumadin 4 mg tablet RxNorm: 450979 1 Tablet(s) PO daily 08/16/2018 08/10/2019 Active this is an update to her RX - she will l et you know when she needs refill triamcinolone aceton sreekanth 0.025 % topical cream RxNorm: 5661371 1 Application TOP QI D 08/16/2018 No Stop Date Active levothyroxine 125 mc g tablet RxNorm: 631581 TAKE ONE TABLET BY [facility] DAILY ON WEDNESDAY, WED, AND WEDNESDAY, AND 1/2 TABLET ON , Wed AND WEDNESDAY. TAKE ON AN EMPTY STOMACH 08/04/2018 04/30/2019 Active meclizine 25 mg tablet RxNorm: 735429 1 Tablet(s) PO TID as needed Dizziness 07/22/2018 No Stop Date Active meclizine 25 mg tablet RxNorm: 726229 1 Tablet(s) PO TID as needed Dizziness 07/19/2018 07/21/2018 In active furosemide 40 mg tablet RxNorm: 861515 1 Tablet(s) BID take 1.5 tabs twice a da y x 7 days then 1 pill daily thereafter 07/11/2018 02/05/2019 Active Coumadin 4 mg tablet RxNorm: 722966 1 Tablet(s) PO daily except 1.5 pills on WEDNESDAY AND Wednesday07/11/2018 08/15/2018 Inactive this is an update to her RX - she will let you know when she needs refill warfarin 5 mg tablet RxNorm: 563507 Tablet(s) TAKE ONE TABLET BY MOUTH DAILY EXCEPT T/TH TAKE 4 MG 04/06/2018 08/22/2019 Active diltiazem 60 mg tablet RxNorm: 598039 1/2 Tablet(s) PO QID 03/24/2018 No Stop Date Active levothyroxine 125 mc g tablet RxNorm: 488456 TAKE ONE TABLET BY [facility] DAILY ON WEDNESDAY, WED, AND WEDNESDAY, AND 1/2 TABLET ON , Wed AND WEDNESDAY. TAKE ON AN EMPTY STOMACH 02/02/2018 07/31/2018 Inactive Coumadin 4 mg tablet RxNorm: 519216 TAKE ONE TABLET BY MOUTH DAILY ON AND Wednesday10/14/2017 07/10/2018 Inactive nystatin 100,000 uni t/gram topical cream RxNorm: 896619 1 Application TOP TID 08/17/2017 No Stop Date Active Voltaren 1 % topical gel RxNorm: 794348 2 Gram(s) TOP TID luiz ly to shoulder and neck 08/17/2017 No Stop Date Active triamcinolone aceton sreekanth 0.025 % topical cream RxNorm: 4338643 1 Application TOP BI D 08/17/2017 08/15/2018 In active levothyroxine 125 mc g tablet RxNorm: 541304 1 Tablet(s) UD 1 pill wed/wed/wed, 1/2 pill //sat/sun take ON AN EMPTY STOMACH 08/05/2017 02/01/2018 Inactive Coumadin 4 mg tablet RxNorm: 397070 1 Tablet(s) PO Wed/urs 07/29/2017 10/13/2017 Inactive warfarin 5 mg tablet RxNorm: 328313 TAKE 1 AND 1/2 TABLETS BY MOUTH ON AND WEDNESDAY. TAKE ONLY 1 TABLET BY MOUTH ALL OTHER DAYS OF THE WEEK 07/12/2017 04/05/2018 In active furosemide 40 mg tablet RxNorm: 828958 Tablet(s) BID TAKE ONE TABLET BY MOUTH D AILY 06/15/2017 07/10/2018 Inactive Voltaren 1 % topical gel RxNorm: 975003 2 Gram(s) TOP TID luiz ly to shoulder and neck 06/15/2017 08/16/2017 Inactive Keflex 500 mg capsule RxNorm: 451042 1 Capsule(s) PO TID 04/01/2017 04/07/2017 Inactive furosemide 40 mg tablet RxNorm: 999282 TAKE ONE TABLET BY MOUTH DAILY 03/18/2017 06/14/2017 In active Claritin-D 12 Hour 5 mg-120 mg tablet,extended release RxNorm: 8362792 1 Tablet(s) PO BID 03/16/2017 05/14/2017 Inactive Lipitor 20 mg tablet RxNorm: 932349 1 Tablet(s) PO daily 02/09/2017 03/10/2017 Inactive lisinopril 2.5 mg ta blet RxNorm: 221225 1 Tablet(s) PO daily 02/09/2017 03/10/2017 Inactive Nasonex 50 mcg/actua tion [place] RxNorm: 3832314 1 [place] NASAL BID 02/09/2017 09/06/2017 Inactive levothyroxine 125 mc g tablet RxNorm: 966653 1 Tablet(s) UD 1 pill wed/wed/wed, 1/2 pill //sat/sun take ON AN EMPTY STOMACH 02/09/2017 08/04/2017 Inactive fluorouracil 5 % top ical cream RxNorm: 260146 1 Application TOP BID 02/09/2017 02/18/2017 Inactive potassium chloride E R 20 mEq tablet,extended release RxNorm: 641310 Tablet(s) TAKE ONE TABLET BY MOUTH DAILY 02/08/2017 02/02/2018 Inactive warfarin 5 mg tablet RxNorm: 607968 TAKE 1 AND 1/2 TABLETS BY MOUTH ON AND WEDNESDAY. TAKE ONLY 1 TABLET BY MOUTH ALL OTHER DAYS OF THE WEEK 12/14/2016 05/30/2017 In active potassium chloride E R 20 mEq tablet,extended release RxNorm: 160212 TAKE ONE TABLET BY MOUTH DAILY 10/29/2016 01/26/2017 Inactive warfarin 5 mg tablet RxNorm: 696302 TAKE 1 AND 1/2 TABLETS BY MOUTH ON AND WEDNESDAY. TAKE ONLY 1 TABLET BY MOUTH ALL OTHER DAYS OF THE WEEK 10/27/2016 12/13/2016 In active nystatin 100,000 uni t/gram topical cream RxNorm: 411336 1 Application TOP TID 10/13/2016 08/16/2017 In active nitrofurantoin 50 mg capsule RxNorm: 833027 1 Capsule(s) PO BID 09/04/2016 09/03/2016 Inactive nitrofurantoin macro crystal 50 mg capsule RxNorm: 803401 1 Capsule(s) PO BID 09/04/2016 09/10/2016 In active Cipro 500 mg tablet RxNorm: 526022 1 Tablet(s) PO BID 08/26/2016 10/12/2016 Inactive Zyrtec 10 mg tablet RxNorm: 6362162 1 Tablet(s) PO daily 07/31/2016 08/29/2016 Inactive prednisone 20 mg tablet RxNorm: 712799 2 Tablet(s) PO daily 07/31/2016 08/02/2016 Inactive Kenalog 40 mg/mL zohra pension for injection RxNorm: 5300775 Milliliter(s) Inj 07/22/2016 07/22/2016 In active ceftriaxone 500 mg s olution for injection RxNorm: 0031766 Inj 07/22/2016 07/22/2016 Inactive Flonase Allergy Reli ef 50 mcg/actuation nasal spray,suspension RxNorm: 7714247 1 [place] NASAL BID 07/22/2016 08/20/2016 Inactive azithromycin 250 mg tablet RxNorm: 695967 2 Tablet(s) PO on day #1, then 1 pill daily x 4 days 07/22/2016 10/12/2016 Inactive warfarin 5 mg tablet RxNorm: 533684 TAKE 1 AND 1/2 TABLETS BY MOUTH ON AND WEDNESDAY. TAKE ONLY 1 TABLET BY MOUTH ALL OTHER DAYS OF THE WEEK 07/09/2016 09/30/2016 In active levothyroxine 125 mc g tablet RxNorm: 172750 Tablet(s) TAKE ONE TA BLET BY MOUTH DAILY ON AN EMPTY STOMACH 06/23/2016 02/08/2017 Inactive levothyroxine 125 mc g tablet RxNorm: 805815 TAKE ONE TABLET BY [facility] DAILY ON AN EMPTY STOMACH 06/23/2016 06/22/2016 Inactive levothyroxine 125 mc g tablet RxNorm: 483659 TAKE ONE TABLET BY [facility] DAILY ON AN EMPTY STOMACH 06/23/2016 08/04/2017 Inactive cetirizine 10 mg tablet RxNorm: 0826454 TAKE ONE TABLET BY MOUTH DAILY 06/16/2016 10/13/2016 In active furosemide 40 mg tablet RxNorm: 113451 Tablet(s) TAKE ONE TABLET BY MOUTH DAILY 06/05/2016 12/01/2016 In active cetirizine 10 mg tablet RxNorm: 2433553 1 Tablet(s) PO daily 05/01/2016 05/30/2016 Inactive Levaquin 250 mg tablet RxNorm: 732399 Tablet(s) PO 2 pills day one and 1 pill day 2-7 04/06/2016 07/21/2016 Inactive warfarin 5 mg tablet RxNorm: 247639 Tablet(s) 1/2 TABLETS BY MOUTH ON AND WEDNESDAY. TAKE ONLY 1 TABLET BY MOUTH ALL OTHER DAYS OF THE WEEK 03/18/2016 07/07/2016 In active triamcinolone aceton sreekanth 0.025 % topical cream RxNorm: 5837880 1 Application TOP BI D 03/10/2016 08/16/2017 In active potassium chloride E R 20 mEq tablet,extended release RxNorm: 089282 1 Tablet(s) PO daily 03/04/2016 06/01/2016 Inactive Levaquin 250 mg tablet RxNorm: 853039 Tablet(s) PO 2 pills day one and 1 pill day 2-7 03/04/2016 04/05/2016 Inactive Levaquin 250 mg tablet RxNorm: 114424 Tablet(s) PO 2 pills day one and 1 pill day 2-7 03/03/2016 03/03/2016 Inactive potassium chloride E R 20 mEq tablet,extended release RxNorm: 058170 1 Tablet(s) PO daily 03/03/2016 03/03/2016 Inactive Cipro 500 mg tablet RxNorm: 437310 1 Tablet(s) PO BID 02/20/2016 07/21/2016 Inactive Cipro 500 mg tablet RxNorm: 123302 1 Tablet(s) PO BID 02/20/2016 02/19/2016 Inactive furosemide 40 mg tablet RxNorm: 962389 TAKE ONE TABLET BY MOUTH DAILY 01/27/2016 01/26/2016 In active warfarin 5 mg tablet RxNorm: 834387 TAKE 1 AND 1/2 TABLETS BY MOUTH ON AND WEDNESDAY. TAKE ONLY 1 TABLET BY MOUTH ALL OTHER DAYS OF THE WEEK 01/27/2016 01/26/2016 In active furosemide 40 mg tablet RxNorm: 084426 TAKE ONE TABLET BY MOUTH DAILY 01/27/2016 06/04/2016 In active warfarin 5 mg tablet RxNorm: 988564 TAKE 1 AND 1/2 TABLETS BY MOUTH ON AND WEDNESDAY. TAKE ONLY 1 TABLET BY MOUTH ALL OTHER DAYS OF THE WEEK 01/27/2016 03/17/2016 In active potassium chloride E R 20 mEq tablet,extended release RxNorm: 826992 1 Tablet(s) PO daily 11/20/2015 03/02/2016 Inactive furosemide 40 mg tablet RxNorm: 599786 TAKE ONE TABLET BY MOUTH DAILY 11/12/2015 01/26/2016 In active Zovirax 5 % topical cream RxNorm: 731212 TOP QID 0 09/24/2015 09/23/2015 Inactive Zovirax 5 % topical cream RxNorm: 252199 TOP QID 0 09/24/2015 11/19/2015 Inactive nystatin 100,000 uni t/gram topical cream RxNorm: 333495 1 Application TOP TID 09/17/2015 10/12/2016 In active warfarin 5 mg tablet RxNorm: 161330 TAKE 1 AND 1/2 TABLETS BY MOUTH ON AND WEDNESDAY. TAKE ONLY 1 TABLET BY MOUTH ALL OTHER DAYS OF THE WEEK 08/19/2015 01/05/2016 In active loratadine 10 mg tablet RxNorm: 673160 1 Tablet(s) PO daily 07/30/2015 07/23/2016 Inactive loratadine 10 mg tablet RxNorm: 027061 1 Tablet(s) PO daily 07/30/2015 07/29/2015 Inactive furosemide 40 mg tablet RxNorm: 615569 TAKE ONE TABLET BY MOUTH DAILY 06/24/2015 11/11/2015 In active levothyroxine 125 mc g tablet RxNorm: 484078 1 Tablet(s) PO daily 05/31/2015 05/24/2016 Inactive furosemide 40 mg tablet RxNorm: 479630 1 Tablet(s) PO daily 04/05/2015 06/23/2015 Inactive warfarin 5 mg tablet RxNorm: 021792 TAKE 1 AND 1/2 TABLETS BY MOUTH ON AND WEDNESDAY. TAKE ONLY 1 TABLET BY MOUTH ALL OTHER DAYS OF THE WEEK 02/12/2015 07/29/2015 In active Flonase Allergy Reli ef 50 mcg/actuation nasal spray,suspension RxNorm: 2 [place] NASAL daily 02/05/2015 03/06/2015 Inactive Kenalog 40 mg/mL zohra pension for injection RxNorm: 1726885 Milliliter(s) Inj 02/05/2015 02/05/2015 In active warfarin 5 mg tablet RxNorm: 128867 Take 7.5mg (1 1/2 tablets) Wednesday and and 1 Tablet(s) PO (5mg) all other days 01/11/2015 02/09/2015 Inactive levothyroxine 125 mc g tablet RxNorm: 807091 1 Tablet(s) PO every other day 01/01/2015 05/30/2015 In active alternate with 150 levothyroxine 150 mc g tablet RxNorm: 141439 1 Tablet(s) PO every other day 01/01/2015 05/30/2015 In active alternate with 125 loratadine 10 mg tablet RxNorm: 041488 Tablet(s) PO as needed No Start Date Active Calcium + D oral RxNorm: 975479 oral No Start Date Active Aspirin Low Dose 81 mg tablet,delayed release RxNorm: 822990 1 Tablet(s) PO daily No Start Date Active Vitamin C oral RxNorm: 1151 oral No Start Date Active Fish Oil 1,000 mg ca psule RxNorm: 1 Capsule(s) PO TID No Start Date Active magnesium 250 mg tablet RxNorm: 1 Tablet(s) PO daily No Start Date Active Vitamin D3 2,000 uni t tablet RxNorm: 222764 2 Tablet(s) PO daily No Start Date Active Fosamax 35 mg tablet RxNorm: 924829 1 Tablet(s) PO QW No Start Date Active levothyroxine 125 mc g tablet RxNorm: 036221 1 Tablet(s) PO daily No Start Date 12/31/2014 Inactive levothyroxine 150 mc g tablet RxNorm: 735071 1 Tablet(s) PO daily No Start Date 12/31/2014 Inactive diltiazem 60 mg tablet RxNorm: 206438 1 Tablet(s) PO QID No Start Date 03/23/2018 Inactive meclizine 25 mg tablet RxNorm: 613366 1 Tablet(s) PO TID as needed Dizziness No Start Date 07/18/2018 Inactive furosemide 40 mg tablet RxNorm: 844790 1 Tablet(s) PO daily No Start Date 04/04/2015 Inactive potassium chloride RxNorm: miscellaneous No Start Date 11/19/2015 Inactive Vitamin D2 oral RxNorm: 4018 oral No Start Date 05/31/2015 Inactive warfarin 5 mg tablet RxNorm: 543273 1 Tablet(s) PO daily No Start Date 01/10/2015 Inactive Coumadin 4 mg tablet RxNorm: 575384 1 Tablet(s) PO Wed/ No Start Date 07/28/2017 Inactive Medication Administered Medication Codes Instruc tions Start Date Status ceftriaxone 500 mg solution for injection RxNorm: 5570693 10/27/2018 No longer A ctive ceftriaxone 500 mg solution for injection RxNorm: 7089230 07/22/2016 No longer A ctive Kenalog 40 mg/mL suspension for injection RxNorm: 1259264 Milliliter 07/22/2016 No longer Active Kenalog 40 mg/mL suspension for injection RxNorm: 1588513 Milliliter 02/05/2015 No longer Active Immunizations Vaccine Codes Date Status Influenza CVX: 141 03/24 completed Pneumococcal (Adult) CVX: 33 03/24/2018 completed Influenza CVX: 141 03/16 completed Pneumococcal (Adult) CVX: 133 03/16/2017 completed Influenza CVX: 141 05/06 completed Influenza CVX: 141 04/28 completed Pneumococcal CVX: 33 06/1999 completed Assessments Condition Codes Effectiv e Dates Other hypotension ICD-10: I95.89 ICD-9: 458.8 01/31/2019 Other fatigue ICD-10: R53.83 ICD-9: 780.79 01/31/2019 Atrophy of thyroid (acquired) ICD-10 : E03.4 ICD-9: 244.8 01/31/2019 Dysuria ICD-10: R30.0 ICD-9: 788.1 01/10/2019 Urinary tract infection, site not specified ICD-10: N39.0 ICD-9: 599.0 12/05/2018 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 89 ICD-9: 477.8 09/27/2018 Essential (primary) hypertension ICD -10: I10 ICD-9: 401.9 09/27/2018 Other skin changes ICD-10: R23.8 ICD-9: 782.9 09/27/2018 Chronic atrial fibrillation ICD-10: I48.2 ICD-9: 427.31 09/27/2018 Sebaceous cyst ICD-10: L72.3 ICD-9: 706.2 [...] 244.9 11/20/2014 ACTINIC KERATOSIS ICD-9: 702.0 11/20/2014 shelter current us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 therapy ICD-9: V58.61 10/19/2014 Reason For Visit Reason For Visit Effective Dates Notes hypertension 01/31/2019 dysuria 01/10/2019 dysuria 12/05/2018 pain, [...] Code Item Item Code Result Date Pt Brx7794 PT 23.4 seconds 01/31/2019 Pt Ctu3016 INR 2.1 01/31/2019 Pt Qdm3573 Low Intensity - 1.5-2.0 01/31/2019 Pt Qiw6214 Mod intensity - 2.0-3.0 01/31/2019 Pt Fnm0380 Hi intensity - 3.0-4.0 01/31/2019 Pt Naj3813 PT 23.6 seconds 01/06/2019 Pt Qhn1630 INR 2.2 01/06/2019 Pt Hwd6643 Low Intensity - 1.5-2.0 01/06/2019 Pt Udm5042 Mod intensity - 2.0-3.0 01/06/2019 Pt Bvt0167 Hi intensity - 3.0-4.0 01/06/2019 Pt Xav1917 PT 23.8 seconds 12/09/2018 Pt Cxa9008 INR 2.2 12/09/2018 Pt Kmi6109 Low Intensity - 1.5-2.0 12/09/2018 Pt Zha9518 Mod intensity - 2.0-3.0 12/09/2018 Pt Cyt0989 Hi intensity - 3.0-4.0 12/09/2018 Pt Zsl4608 PT 22.3 seconds 11/23/2018 Pt Kzz1496 INR 2.0 11/23/2018 Pt Ffk3724 Low Intensity - 1.5-2.0 11/23/2018 Pt Pty9040 Mod intensity - 2.0-3.0 11/23/2018 Pt Obf3884 Hi intensity - 3.0-4.0 11/23/2018 Pt Pqz7987 PT 18.0 seconds 11/14/2018 Pt Oph1082 INR 1.5 11/14/2018 Pt Sto0309 Low Intensity - 1.5-2.0 11/14/2018 Pt Bcx9935 Mod intensity - 2.0-3.0 11/14/2018 Pt Swo2311 Hi intensity - 3.0-4.0 11/14/2018 Pt Gqj7184 PT 17.3 seconds 11/03/2018 Pt Xyn5870 INR 1.5 11/03/2018 Pt Vfm8495 Low Intensity - 1.5-2.0 11/03/2018 Pt Dxk5181 Mod intensity - 2.0-3.0 11/03/2018 Pt Cik2478 Hi intensity - 3.0-4.0 11/03/2018 Urine Culture Ucult Comp lete >100,000 col/ml aerobic grow th sent to ref lab 10/28/2018 Pt Uvq1864 PT 24.4 seconds 10/24/2018 Pt Lze4378 INR 2.2 10/24/2018 Pt Mhq5582 Low Intensity - 1.5-2.0 10/24/2018 Pt Qfd9962 Mod intensity - 2.0-3.0 10/24/2018 Pt Fxi5602 Hi intensity - 3.0-4.0 10/24/2018 Lipid Ord30 CHOL 143 mg/dL 10/24/2018 Lipid Ord30 HDL 52.0 mg/dl 10/24/2018 Lipid Ord30 TRIG 78 mg/dL 10/24/2018 Lipid Ord30 LDL 75 mg/dL 10/24/2018 Lipid Ord30 C/HDL 2.8 Ratio 10/24/2018 Comp Metabolic Xzi792 NA 142 mEq/L 10/24/2018 Comp Metabolic Gmk042 K 4.6 mEq/L 10/24/2018 Comp Metabolic Gqh411 CL 107 mEq/L 10/24/2018 Comp Metabolic Ngz647 CO2 27.0 mEq/L 10/24/2018 Comp Metabolic Njs426 AN ION GAP 13 10/24/2018 Comp Metabolic Obm782 GL UCOSE 82 mg/dL 10/24/2018 Comp Metabolic Lib829 Cr eat 1.1 mg/dL 10/24/2018 Comp Metabolic Pbz724 eG FR 54 ml/min/1.73m2 10/24 Comp Metabolic Qdk972 BUN 23 mg/dL 10/24/2018 Comp Metabolic Pea250 B/ C Ratio 21.9 Ratio 10/24/2018 Comp Metabolic Fnd678 CA LCIUM 9.0 mg/dL 10/24/2018 Comp Metabolic Fqg939 AL K PHOS 64 U/L 10/24/2018 Comp Metabolic Apu866 T(SGOT) 18 U/L 10/24/2018 Comp Metabolic Anl608 AL T(SGPT) 14 U/L 10/24/2018 Comp Metabolic Mha212 BI LI T 0.5 mg/dL 10/24/2018 Comp Metabolic Bhc453 AL BUMIN 3.0 g/dL 10/24/2018 Comp Metabolic Vcc512 TP RO 5.2 g/dL 10/24/2018 Comp Metabolic Hkh354 GL OB 2.2 g/dL 10/24/2018 Comp Metabolic Wmm004 A/ G Ratio 1.4 Ratio 10/24/2018 Comp Metabolic Nvz951 Os mo 286 mOsmo 10/24/2018 Pt Upd0023 PT 23.8 seconds 09/29/2018 Pt Mtc4382 INR 2.2 09/29/2018 Pt Bub6327 Low Intensity - 1.5-2.0 09/29/2018 Pt Daa6249 Mod intensity - 2.0-3.0 09/29/2018 Pt Pac7363 Hi intensity - 3.0-4.0 09/29/2018 Pt Jma1695 PT 19.6 seconds 09/19/2018 Pt Ybn6263 INR 1.7 09/19/2018 Pt Iil0663 Low Intensity - 1.5-2.0 09/19/2018 Pt Szg3154 Mod intensity - 2.0-3.0 09/19/2018 Pt Xod2602 Hi intensity - 3.0-4.0 09/19/2018 Pt Jlt1632 PT 16.8 seconds 09/12/2018 Pt Zsb7852 INR 1.4 09/12/2018 Pt Zqw0233 Low Intensity - 1.5-2.0 09/12/2018 Pt Gfb8211 Mod intensity - 2.0-3.0 09/12/2018 Pt Jzc8551 Hi intensity - 3.0-4.0 09/12/2018 Pt Gkh3092 PT 13.1 seconds 09/07/2018 Pt Wkx1898 INR 1.0 09/07/2018 Pt Krt5384 Low Intensity - 1.5-2.0 09/07/2018 Pt Zts7406 Mod intensity - 2.0-3.0 09/07/2018 Pt Xca9870 Hi intensity - 3.0-4.0 09/07/2018 Pt Lfz3447 PT 24.1 seconds 08/23/2018 Pt Fkt4644 INR 2.2 08/23/2018 Pt Tmd5834 Low Intensity - 1.5-2.0 08/23/2018 Pt Juq0990 Mod intensity - 2.0-3.0 08/23/2018 Pt Lvc9707 Hi intensity - 3.0-4.0 08/23/2018 Pt Mtd4207 PT 30.9 seconds 08/16/2018 Pt Cai4392 INR 3.0 08/16/2018 Pt Tps8107 Low Intensity - 1.5-2.0 08/16/2018 Pt Dli1368 Mod intensity - 2.0-3.0 08/16/2018 Pt Byn0773 Hi intensity - 3.0-4.0 08/16/2018 Pt Win8211 PT 29.5 seconds 08/01/2018 Pt Lnw7593 INR 2.8 08/01/2018 Pt Xyy3921 Low Intensity - 1.5-2.0 08/01/2018 Pt Cah1301 Mod intensity - 2.0-3.0 08/01/2018 Pt Mxl6453 Hi intensity - 3.0-4.0 08/01/2018 Pt Roj9816 PT 24.2 seconds 07/25/2018 Pt Yzs6996 INR 2.2 07/25/2018 Pt Dfw6431 Low Intensity - 1.5-2.0 07/25/2018 Pt Tks3940 Mod intensity - 2.0-3.0 07/25/2018 Pt Cdq0344 Hi intensity - 3.0-4.0 07/25/2018 Pt Cil1000 PT 38.6 seconds 07/19/2018 Pt Zej6374 INR 4.0 07/19/2018 Pt Doi4969 Low Intensity - 1.5-2.0 07/19/2018 Pt Alq6288 Mod intensity - 2.0-3.0 07/19/2018 Pt Mbl8419 Hi intensity - 3.0-4.0 07/19/2018 Pt Zof0422 PT 25.7 seconds 07/11/2018 Pt Gkt2075 INR 2.4 07/11/2018 Pt Lmm1074 Low Intensity - 1.5-2.0 07/11/2018 Pt Syt4641 Mod intensity - 2.0-3.0 07/11/2018 Pt Rgt4333 Hi intensity - 3.0-4.0 07/11/2018 Pt Rau8469 PT 18.5 seconds 07/08/2018 Pt Uhq8677 INR 1.6 07/08/2018 Pt Tvj1069 Low Intensity - 1.5-2.0 07/08/2018 Pt Izz4463 Mod intensity - 2.0-3.0 07/08/2018 Pt Vvz5793 Hi intensity - 3.0-4.0 07/08/2018 Pt Jiw2467 PT 27.3 seconds 06/29/2018 Pt Qpx1206 INR 2.6 06/29/2018 Pt Nzk8984 Low Intensity - 1.5-2.0 06/29/2018 Pt Qdd1810 Mod intensity - 2.0-3.0 06/29/2018 Pt Wou3566 Hi intensity - 3.0-4.0 06/29/2018 Pt Mqu3829 PT 24.0 seconds 05/26/2018 Pt Ymj0290 INR 2.2 05/26/2018 Pt Dtx1436 Low Intensity - 1.5-2.0 05/26/2018 Pt Zdi4672 Mod intensity - 2.0-3.0 05/26/2018 Pt Ehp7609 Hi intensity - 3.0-4.0 05/26/2018 Tsh Ord6 [...] 29.6 pg 03/25/2018 Cbc With Differential Ord2 [place]% 9.5 % 03/25/2018 Cbc With Differential Ord2 [...] 2.19 K/ul 03/25/2018 Cbc With Differential Ord2 [place] ABS# 0.8 K/ul 03/25/2018 Cbc With Differential Ord2 Eos ABS# 0.3 K/ul 03/25/2018 Cbc With Differential Ord2 Baso ABS# 0.0 K/ul 03/25/2018 Lipid Ord30 CHOL 156 mg/dL 03/25/2018 Lipid Ord30 HDL 52.0 mg/dl 03/25/2018 Lipid Ord30 TRIG 98 mg/dL 03/25/2018 Lipid Ord30 LDL 84 mg/dL 03/25/2018 Lipid Ord30 C/HDL 3.0 Ratio 03/25/2018 Free T4 [id number] FREE T4 1.73 ng/dL 03/25/2018 Comp Metabolic Rop067 NA 143 mEq/L 03/25/2018 Comp Metabolic Jsb128 K 4.6 mEq/L 03/25/2018 Comp Metabolic Tmo667 CL 108 mEq/L 03/25/2018 Comp Metabolic Dyw588 CO2 26.0 mEq/L 03/25/2018 Comp Metabolic Vjm558 AN ION GAP 14 03/25/2018 Comp Metabolic Kgv070 GL UCOSE 87 mg/dL 03/25/2018 Comp Metabolic Flf221 Cr eat 1.2 mg/dL 03/25/2018 Comp Metabolic Idj133 eG FR 48 ml/min/1.73m2 03/25 Comp Metabolic Qet022 BUN 18 mg/dL 03/25/2018 Comp Metabolic Zmt639 B/ C Ratio 15.5 Ratio 03/25/2018 Comp Metabolic Kcu717 CA LCIUM 9.1 mg/dL 03/25/2018 Comp Metabolic Sxr369 AL K PHOS 58 U/L 03/25/2018 Comp Metabolic Zpz600 T(SGOT) 21 U/L 03/25/2018 Comp Metabolic Lac814 AL T(SGPT) 13 U/L 03/25/2018 Comp Metabolic Omd568 BI LI T 0.7 mg/dL 03/25/2018 Comp Metabolic Jel521 AL BUMIN 3.2 g/dL 03/25/2018 Comp Metabolic Jat704 TP RO 5.5 g/dL 03/25/2018 Comp Metabolic Byl412 GL OB 2.3 g/dL 03/25/2018 Comp Metabolic Aom048 A/ G Ratio 1.4 Ratio 03/25/2018 Comp Metabolic Nrx322 Os mo 286 mOsmo 03/25/2018 Pt Dat8453 PT 29.0 seconds 03/22/2018 Pt Klv5351 INR 2.7 03/22/2018 Pt Gmn6336 Low Intensity - 1.5-2.0 03/22/2018 Pt Qxg8377 Mod intensity - 2.0-3.0 03/22/2018 Pt Ynj2112 Hi intensity - 3.0-4.0 03/22/2018 Pt Fcf0377 PT 27.1 seconds 02/25/2018 Pt Qsy4437 INR 2.5 02/25/2018 Pt Rxo3559 Low Intensity - 1.5-2.0 02/25/2018 Pt Gdm8249 Mod intensity - 2.0-3.0 02/25/2018 Pt Lhu6528 Hi intensity - 3.0-4.0 02/25/2018 Pt Sxd2759 PT 26.1 seconds 01/26/2018 Pt Nfx0213 INR 2.4 01/26/2018 Pt Vrd2363 Low Intensity - 1.5-2.0 01/26/2018 Pt Tyh8914 Mod intensity - 2.0-3.0 01/26/2018 Pt Ayt4715 Hi intensity - 3.0-4.0 01/26/2018 Pt Vcf5435 PT 22.8 seconds 12/24/2017 Pt Ero2545 INR 2.0 12/24/2017 Pt Ukk4847 Low Intensity - 1.5-2.0 12/24/2017 Pt Tdc6776 Mod intensity - 2.0-3.0 12/24/2017 Pt Riw8671 Hi intensity - 3.0-4.0 12/24/2017 Pt Msc3225 PT 29.4 seconds 11/18/2017 Pt Ijr7828 INR 2.8 11/18/2017 Pt Rkj3101 Low Intensity - 1.5-2.0 11/18/2017 Pt Blu4508 Mod intensity - 2.0-3.0 11/18/2017 Pt Ynk9898 Hi intensity - 3.0-4.0 11/18/2017 Pt Lid4032 PT 26.6 seconds 09/13/2017 Pt Tza0794 INR 2.4 09/13/2017 Pt Trq5480 Low Intensity - 1.5-2.0 09/13/2017 Pt Pas6176 Mod intensity - 2.0-3.0 09/13/2017 Pt Ect2363 Hi intensity - 3.0-4.0 09/13/2017 Pt Zyf4878 PT 28.2 seconds 08/10/2017 Pt Oji6042 INR 2.6 08/10/2017 Pt Hfz0472 Low Intensity - 1.5-2.0 08/10/2017 Pt Xij4225 Mod intensity - 2.0-3.0 08/10/2017 Pt Akd9515 Hi intensity - 3.0-4.0 08/10/2017 Pt Bjy3731 PT 33.9 seconds 07/27/2017 Pt Kqe1104 INR 3.3 07/27/2017 Pt Juh1419 Low Intensity - 1.5-2.0 07/27/2017 Pt Xwx3013 Mod intensity - 2.0-3.0 07/27/2017 Pt Nyg1400 Hi intensity - 3.0-4.0 07/27/2017 Pt Bto1192 PT 29.1 seconds 06/29/2017 Pt Kbx1263 INR 2.7 06/29/2017 Pt Vkg0723 Low Intensity - 1.5-2.0 06/29/2017 Pt Nbo1557 Mod intensity - 2.0-3.0 06/29/2017 Pt Bfr8356 Hi intensity - 3.0-4.0 06/29/2017 Pt Mez1367 PT 30.3 seconds 06/11/2017 Pt Ewi5966 INR 2.9 06/11/2017 Pt Wyj3958 Low Intensity - 1.5-2.0 06/11/2017 Pt Rdh8908 Mod intensity - 2.0-3.0 06/11/2017 Pt Lrk4010 Hi intensity - 3.0-4.0 06/11/2017 Pt Axn5676 PT 39.1 seconds 06/07/2017 Pt Bhc5685 INR 3.9 06/07/2017 Pt Xpk3036 Low Intensity - 1.5-2.0 06/07/2017 Pt Qbl6239 Mod intensity - 2.0-3.0 06/07/2017 Pt Whl6548 Hi intensity - 3.0-4.0 06/07/2017 Pt Snk0051 PT 34.2 seconds 05/26/2017 Pt Uwi1076 INR 3.3 05/26/2017 Pt Ijb1178 Low Intensity - 1.5-2.0 05/26/2017 Pt Owc5541 Mod intensity - 2.0-3.0 05/26/2017 Pt Vyi8334 Hi intensity - 3.0-4.0 05/26/2017 Comp Metabolic Som820 NA 138 mEq/L 04/23/2017 Comp Metabolic Ols908 K 4.2 mEq/L 04/23/2017 Comp Metabolic Zur451 CL 101 mEq/L 04/23/2017 Comp Metabolic Qqi746 CO2 28.0 mEq/L 04/23/2017 Comp Metabolic Vlk590 AN ION GAP 13 04/23/2017 Comp Metabolic Wrr496 GL UCOSE 89 mg/dL 04/23/2017 Comp Metabolic Nco013 Cr eat 1.1 mg/dL 04/23/2017 Comp Metabolic Yyu866 eG FR 51 ml/min/1.73m2 04/23 Comp Metabolic Owi196 BUN 26 mg/dL 04/23/2017 Comp Metabolic Lax664 B/ C Ratio 23.9 Ratio 04/23/2017 Comp Metabolic Zco838 CA LCIUM 9.4 mg/dL 04/23/2017 Comp Metabolic Jbe317 AL K PHOS 95 U/L 04/23/2017 Comp Metabolic Lpr681 T(SGOT) 18 U/L 04/23/2017 Comp Metabolic Oaj163 AL T(SGPT) 17 U/L 04/23/2017 Comp Metabolic Umd006 BI LI T 0.7 mg/dL 04/23/2017 Comp Metabolic Gxb660 AL BUMIN 3.2 g/dL 04/23/2017 Comp Metabolic Pmw294 TP RO 5.6 g/dL 04/23/2017 Comp Metabolic Eii600 GL OB 2.4 g/dL 04/23/2017 Comp Metabolic Nog799 A/ G Ratio 1.3 Ratio 04/23/2017 Comp Metabolic Uxp010 Os mo 280 mOsmo 04/23/2017 Pt Zuz9924 PT 28.6 seconds 04/23/2017 Pt Mxc8529 INR 2.7 04/23/2017 Pt Vbf4092 Low Intensity - 1.5-2.0 04/23/2017 Pt Sdh5736 Mod intensity - 2.0-3.0 04/23/2017 Pt Ojg7410 Hi intensity - 3.0-4.0 04/23/2017 Pt Vpx2459 PT 24.4 seconds 03/16/2017 Pt Bft3816 INR 2.2 03/16/2017 Pt Ngj8118 Low Intensity - 1.5-2.0 03/16/2017 Pt Uyr6348 Mod intensity - 2.0-3.0 03/16/2017 Pt Gqf9781 Hi intensity - 3.0-4.0 03/16/2017 Pt Yhd8962 PT 28.2 seconds 02/24/2017 Pt Vtn5653 INR 2.6 02/24/2017 Pt Syb9197 Low Intensity - 1.5-2.0 02/24/2017 Pt Ctn9393 Mod intensity - 2.0-3.0 02/24/2017 Pt Ncq3611 Hi intensity - 3.0-4.0 02/24/2017 Pt Tuj7491 PT 26.8 seconds 02/08/2017 Pt Ued9692 INR 2.5 02/08/2017 Pt Swm1996 Low Intensity - 1.5-2.0 02/08/2017 Pt Cmr5596 Mod intensity - 2.0-3.0 02/08/2017 Pt Uzy4490 Hi intensity - 3.0-4.0 02/08/2017 Lipid Ord30 CHOL 150 mg/dL 01/25/2017 Lipid Ord30 HDL 55.0 mg/dl 01/25/2017 Lipid Ord30 TRIG 66 mg/dL 01/25/2017 Lipid Ord30 LDL 82 mg/dL 01/25/2017 Lipid Ord30 C/HDL 2.7 Ratio 01/25/2017 Pt Vpx1632 PT 29.9 seconds 01/25/2017 Pt Joy9488 INR 2.8 01/25/2017 Pt Elh3421 Low Intensity - 1.5-2.0 01/25/2017 Pt Hvo4064 Mod intensity - 2.0-3.0 01/25/2017 Pt Cue1674 Hi intensity - 3.0-4.0 01/25/2017 Comp Metabolic Uvz261 NA 143 mEq/L 01/25/2017 Comp Metabolic Wbx358 K 3.9 mEq/L 01/25/2017 Comp Metabolic Iyp879 CL 108 mEq/L 01/25/2017 Comp Metabolic Vwi548 CO2 23.0 mEq/L 01/25/2017 Comp Metabolic Nmg966 AN ION GAP 16 01/25/2017 Comp Metabolic Zvv816 GL UCOSE 80 mg/dL 01/25/2017 Comp Metabolic Anb359 Cr eat 1.0 mg/dL 01/25/2017 Comp Metabolic Kfi980 eG FR 57 ml/min/1.73m2 01/25 Comp Metabolic Qms367 BUN 25 mg/dL 01/25/2017 Comp Metabolic Ewg557 B/ C Ratio 25.0 Ratio 01/25/2017 Comp Metabolic Mlw515 CA LCIUM 8.5 mg/dL 01/25/2017 Comp Metabolic Lfh418 AL K PHOS 81 U/L 01/25/2017 Comp Metabolic Ibv037 T(SGOT) 19 U/L 01/25/2017 Comp Metabolic Mgf139 AL T(SGPT) 23 U/L 01/25/2017 Comp Metabolic Wmi240 BI LI T 0.5 mg/dL 01/25/2017 Comp Metabolic Aha055 AL BUMIN 2.9 g/dL 01/25/2017 Comp Metabolic Ydk561 TP RO 5.1 g/dL 01/25/2017 Comp Metabolic Nzl866 GL OB 2.2 g/dL 01/25/2017 Comp Metabolic Ucn601 A/ G Ratio 1.3 Ratio 01/25/2017 Comp Metabolic Cdf335 Os mo 288 mOsmo 01/25/2017 Cbc With [...] 30.7 pg 01/25/2017 Cbc With Differential Ord2 [place]% 8.2 % 01/25/2017 Cbc With Differential Ord2 [...] 3.10 K/ul 01/25/2017 Cbc With Differential Ord2 [place] ABS# 0.8 K/ul 01/25/2017 Cbc With Differential Ord2 Eos ABS# 0.4 K/ul 01/25/2017 Cbc With Differential Ord2 Baso ABS# 0.1 K/ul 01/25/2017 Free T4 Htt105 FREE T4 2.09 ng/dL 01/25/2017 Tsh Ord6 hTSH II 0.46 uIU/mL 01/25/2017 Pt Osp5348 PT 26.1 seconds 11/26/2016 Pt Rjp6604 INR 2.6 11/26/2016 Pt Kal7234 Low Intensity - 1.5-2.0 11/26/2016 Pt Auv8265 Mod intensity - 2.0-3.0 11/26/2016 Pt Cry8321 Hi intensity - 3.0-4.0 11/26/2016 Pt Iqe9869 PT 26.2 seconds 10/29/2016 Pt Miv8771 INR 2.6 10/29/2016 Pt Uca3580 Low Intensity - 1.5-2.0 10/29/2016 Pt Hmm3318 Mod intensity - 2.0-3.0 10/29/2016 Pt Hgj5976 Hi intensity - 3.0-4.0 10/29/2016 Pt Dpg7844 PT 20.8 seconds 10/13/2016 Pt Vgp9646 INR 1.9 10/13/2016 Pt Fec0417 Low Intensity - 1.5-2.0 10/13/2016 Pt Tvi9330 Mod intensity - 2.0-3.0 10/13/2016 Pt Fgr0934 Hi intensity - 3.0-4.0 10/13/2016 Pt Lkv5310 PT 26.5 seconds 10/01/2016 Pt Hcm7354 INR 2.6 10/01/2016 Pt Lpt5183 Low Intensity - 1.5-2.0 10/01/2016 Pt Zzf1307 Mod intensity - 2.0-3.0 10/01/2016 Pt Tst9269 Hi intensity - 3.0-4.0 10/01/2016 Pt Mgl1617 PT 24.6 seconds 09/14/2016 Pt Ocr6935 INR 2.4 09/14/2016 Pt Mve6823 Low Intensity - 1.5-2.0 09/14/2016 Pt Mfy6881 Mod intensity - 2.0-3.0 09/14/2016 Pt Vrv4595 Hi intensity - 3.0-4.0 09/14/2016 Pt Hgg6826 PT 18.0 seconds 09/07/2016 Pt Rnt3780 INR 1.6 09/07/2016 Pt Bqh1431 Low Intensity - 1.5-2.0 09/07/2016 Pt Rve2796 Mod intensity - 2.0-3.0 09/07/2016 Pt Ned8323 Hi intensity - 3.0-4.0 09/07/2016 Pt Omc2117 PT 23.7 seconds 08/12/2016 Pt Ofw2836 INR 2.2 08/12/2016 Pt Cho8815 Low Intensity - 1.5-2.0 08/12/2016 Pt Wnu9739 Mod intensity - 2.0-3.0 08/12/2016 Pt Hkt6215 Hi intensity - 3.0-4.0 08/12/2016 Pt Hjm1573 PT 21.6 seconds 07/27/2016 Pt Lnm3783 INR 2.0 07/27/2016 Pt Wzs7493 Low Intensity - 1.5-2.0 07/27/2016 Pt Mkc9677 Mod intensity - 2.0-3.0 07/27/2016 Pt Kdo0854 Hi intensity - 3.0-4.0 07/27/2016 Pt Avk7088 PT 26.0 seconds 06/15/2016 Pt Anl9072 INR 2.5 06/15/2016 Pt Sxs5488 Low Intensity - 1.5-2.0 06/15/2016 Pt Wen8470 Mod intensity - 2.0-3.0 06/15/2016 Pt Wqu8372 Hi intensity - 3.0-4.0 06/15/2016 Pt Rai7211 PT 18.8 seconds 06/01/2016 Pt Tsz0375 INR 1.7 06/01/2016 Pt Lek4882 Low Intensity - 1.5-2.0 06/01/2016 Pt Uey0697 Mod intensity - 2.0-3.0 06/01/2016 Pt Ews6259 Hi intensity - 3.0-4.0 06/01/2016 Pt Owv6285 PT 20.8 seconds 05/12/2016 Pt Rrz0325 INR 1.9 05/12/2016 Pt Rfy0251 Low Intensity - 1.5-2.0 05/12/2016 Pt Czb7553 Mod intensity - 2.0-3.0 05/12/2016 Pt Eao0805 Hi intensity - 3.0-4.0 05/12/2016 Pt Itn0417 PT 24.5 seconds 04/10/2016 Pt Cza3423 INR 2.4 04/10/2016 Pt Fyw5851 Low Intensity - 1.5-2.0 04/10/2016 Pt Xws0521 Mod intensity - 2.0-3.0 04/10/2016 Pt Mum7167 Hi intensity - 3.0-4.0 04/10/2016 Pt Vtg3047 PT 26.4 seconds 03/10/2016 Pt Hbd8567 INR 2.6 03/10/2016 Pt Oah0061 Low Intensity - 1.5-2.0 03/10/2016 Pt Ato5083 Mod intensity - 2.0-3.0 03/10/2016 Pt Izd8928 Hi intensity - 3.0-4.0 03/10/2016 Pt Evb2868 PT 24.9 seconds 03/06/2016 Pt Ogd8429 INR 2.4 03/06/2016 Pt Yzi8015 Low Intensity - 1.5-2.0 03/06/2016 Pt Jso8797 Mod intensity - 2.0-3.0 03/06/2016 Pt Syx7308 Hi intensity - 3.0-4.0 03/06/2016 Pt Zjc7061 PT 21.9 seconds 02/25/2016 Pt Vdm9400 INR 2.0 02/25/2016 Pt Lyz9673 Low Intensity - 1.5-2.0 02/25/2016 Pt Yms9728 Mod intensity - 2.0-3.0 02/25/2016 Pt Qym7956 Hi intensity - 3.0-4.0 02/25/2016 Pt Zrs8401 PT 21.8 seconds 02/21/2016 Pt Ope7640 INR 2.0 02/21/2016 Pt Etm9540 Low Intensity - 1.5-2.0 02/21/2016 Pt Xnz8126 Mod intensity - 2.0-3.0 02/21/2016 Pt Nfq7903 Hi intensity - 3.0-4.0 02/21/2016 Culture Urine [id number] URI NE CULTURE SEE NOTES 02/20/2016 Culture Urine [id number] Con tinued Results 02/20/2016 Urine Culture Ucult [...] 29.2 pg 02/14/2016 Cbc With Differential Ord2 [place]% 9.3 % 02/14/2016 Cbc With Differential Ord2 [...] 2.55 K/ul 02/14/2016 Cbc With Differential Ord2 [place] ABS# 0.8 K/ul 02/14/2016 Cbc With Differential Ord2 Eos ABS# 0.4 K/ul 02/14/2016 Cbc With Differential Ord2 Baso ABS# 0.1 K/ul 02/14/2016 Tsh Ord6 hTSH II 0.80 uIU/mL 02/14/2016 Pt Rrx4461 PT 27.1 seconds 02/14/2016 Pt Jmo2628 INR 2.7 02/14/2016 Pt Txt3704 Low Intensity - 1.5-2.0 02/14/2016 Pt Rgy4926 Mod intensity - 2.0-3.0 02/14/2016 Pt Vov9379 Hi intensity - 3.0-4.0 02/14/2016 Free T4 Onb471 FREE T4 1.87 ng/dL 02/14/2016 Comp Metabolic Eed468 NA 139 mEq/L 02/14/2016 Comp Metabolic Qqr158 K 3.8 mEq/L 02/14/2016 Comp Metabolic Drj426 CL 103 mEq/L 02/14/2016 Comp Metabolic Xml574 CO2 27.0 mEq/L 02/14/2016 Comp Metabolic Nvn548 AN ION GAP 13 02/14/2016 Comp Metabolic Gnv796 GL UCOSE 91 mg/dL 02/14/2016 Comp Metabolic Mcn584 Cr eat 1.0 mg/dL 02/14/2016 Comp Metabolic Hmv147 eG FR 58 ml/min/1.73m2 02/13 Comp Metabolic Kpr780 BUN 16 mg/dL 02/14/2016 Comp Metabolic Uiq327 B/ C Ratio 16.2 Ratio 02/14/2016 Comp Metabolic Gkb263 CA LCIUM 9.0 mg/dL 02/14/2016 Comp Metabolic Nbp076 AL K PHOS 88 U/L 02/14/2016 Comp Metabolic Vtx363 T(SGOT) 17 U/L 02/14/2016 Comp Metabolic Ygh877 AL T(SGPT) 12 U/L 02/14/2016 Comp Metabolic Sbs923 BI LI T 0.6 mg/dL 02/14/2016 Comp Metabolic Wwv120 AL BUMIN 3.2 g/dL 02/14/2016 Comp Metabolic Eik226 TP RO 5.8 g/dL 02/14/2016 Comp Metabolic Wqr108 GL OB 2.6 g/dL 02/14/2016 Comp Metabolic Ykg186 A/ G Ratio 1.3 Ratio 02/14/2016 Comp Metabolic Yeu824 Os mo 278 mOsmo 02/14/2016 Pt Eqt3988 PT 34.6 seconds 02/06/2016 Pt Whu9967 INR 3.7 02/06/2016 Pt Ceu2622 Low Intensity - 1.5-2.0 02/06/2016 Pt Mwf1716 Mod intensity - 2.0-3.0 02/06/2016 Pt Oie7582 Hi intensity - 3.0-4.0 02/06/2016 Pt Jol0214 PT 33.3 seconds 01/23/2016 Pt Ubr4951 INR 3.5 01/23/2016 Pt Mss4325 Low Intensity - 1.5-2.0 01/23/2016 Pt Jmd6397 Mod intensity - 2.0-3.0 01/23/2016 Pt Yct5181 Hi intensity - 3.0-4.0 01/23/2016 Pt Waa9621 PT 30.5 seconds 12/31/2015 Pt Qfm0668 INR 3.2 12/31/2015 Pt Mbb4781 Low Intensity - 1.5-2.0 12/31/2015 Pt Smc9772 Mod intensity - 2.0-3.0 12/31/2015 Pt Rnl2200 Hi intensity - 3.0-4.0 12/31/2015 Pt Pej6460 PT 35.6 seconds 12/25/2015 Pt Ybq7666 INR 3.9 12/25/2015 Pt Fiv0127 Low Intensity - 1.5-2.0 12/25/2015 Pt Cmy4241 Mod intensity - 2.0-3.0 12/25/2015 Pt Tcc2600 Hi intensity - 3.0-4.0 12/25/2015 Pt Ewf6521 PT 30.8 seconds 11/21/2015 Pt Qbs3555 INR 3.2 11/21/2015 Pt Djj2614 Low Intensity - 1.5-2.0 11/21/2015 Pt Kmo4689 Mod intensity - 2.0-3.0 11/21/2015 Pt Isb4963 Hi intensity - 3.0-4.0 11/21/2015 Uric Acid [...] 30.0 pg 11/20/2015 Cbc With Differential Ord2 [place]% 8.1 % 11/20/2015 Cbc With Differential Ord2 [...] 2.51 K/ul 11/20/2015 Cbc With Differential Ord2 [place] ABS# 0.9 K/ul 11/20/2015 Cbc With Differential Ord2 Eos ABS# 0.3 K/ul 11/20/2015 Cbc With Differential Ord2 Baso ABS# 0.0 K/ul 11/20/2015 Comp Metabolic Vml096 NA 137 mEq/L 10/22/2015 Comp Metabolic Dcu305 K 3.9 mEq/L 10/22/2015 Comp Metabolic Pjj434 CL 100 mEq/L 10/22/2015 Comp Metabolic Wns865 CO2 31.0 mEq/L 10/22/2015 Comp Metabolic Iht788 AN ION GAP 10 10/22/2015 Comp Metabolic Ggn174 GL UCOSE 94 mg/dL 10/22/2015 Comp Metabolic Ilh373 Cr eat 1.0 mg/dL 10/22/2015 Comp Metabolic Xts066 eG FR 55 ml/min/1.73m2 10/21 Comp Metabolic Xxe135 BUN 19 mg/dL 10/22/2015 Comp Metabolic Ktu795 B/ C Ratio 18.3 Ratio 10/22/2015 Comp Metabolic Ely270 CA LCIUM 8.8 mg/dL 10/22/2015 Comp Metabolic Mvw646 AL K PHOS 83 U/L 10/22/2015 Comp Metabolic Som970 T(SGOT) 15 U/L 10/22/2015 Comp Metabolic Cjn839 AL T(SGPT) 13 U/L 10/22/2015 Comp Metabolic Ddx915 BI LI T 0.9 mg/dL 10/22/2015 Comp Metabolic Lzs091 AL BUMIN 2.8 g/dL 10/22/2015 Comp Metabolic Yin492 TP RO 5.4 g/dL 10/22/2015 Comp Metabolic Onf519 GL OB 2.6 g/dL 10/22/2015 Comp Metabolic Uih804 A/ G Ratio 1.1 Ratio 10/22/2015 Comp Metabolic Diq911 Os mo 276 mOsmo 10/22/2015 Bili D Ord93 BILI D 0.1 mg/dL 10/22/2015 Bili D Ord93 BILI I 0.8 mg/dL 10/22/2015 Pt Zir2588 PT 22.8 seconds 10/22/2015 Pt Clc4630 INR 2.1 10/22/2015 Pt Pcl2718 Low Intensity - 1.5-2.0 10/22/2015 Pt Akw9715 Mod intensity - 2.0-3.0 10/22/2015 Pt Wgy1802 Hi intensity - 3.0-4.0 10/22/2015 Pt Vby0656 PT 28.0 seconds 09/16/2015 Pt Vod6336 INR 2.7 09/16/2015 Pt Phj5448 Low Intensity - 1.5-2.0 09/16/2015 Pt Yaw3928 Mod intensity - 2.0-3.0 09/16/2015 Pt Dgn0827 Hi intensity - 3.0-4.0 09/16/2015 Tsh Ord6 hTSH II 1.40 uIU/mL 09/16/2015 Free T4 Jkl999 FREE T4 1.73 ng/dL 09/16/2015 Lipid Ord30 CHOL 169 mg/dL 09/16/2015 Lipid Ord30 HDL 66.0 mg/dl 09/16/2015 Lipid Ord30 TRIG 78 mg/dL 09/16/2015 Lipid Ord30 LDL 87 mg/dL 09/16/2015 Lipid Ord30 C/HDL 2.6 Ratio 09/16/2015 Pt Sxs6388 PT 26.6 seconds 08/21/2015 Pt Nep2564 INR 2.6 08/21/2015 Pt Jsa5894 Low Intensity - 1.5-2.0 08/21/2015 Pt Adf2964 Mod intensity - 2.0-3.0 08/21/2015 Pt Pbu7940 Hi intensity - 3.0-4.0 08/21/2015 Comp Metabolic Qin983 NA 141 mEq/L 08/08/2015 Comp Metabolic Kfb609 K 3.3 mEq/L 08/08/2015 Comp Metabolic Rgm465 CL 102 mEq/L 08/08/2015 Comp Metabolic Vpu768 CO2 31.0 mEq/L 08/08/2015 Comp Metabolic Aaa675 AN ION GAP 11 08/08/2015 Comp Metabolic Yfw355 GL UCOSE 83 mg/dL 08/08/2015 Comp Metabolic Iup829 Cr eat 1.0 mg/dL 08/08/2015 Comp Metabolic Bwf091 eG FR 55 ml/min/1.73m2 08/08 Comp Metabolic Qgh350 BUN 19 mg/dL 08/08/2015 Comp Metabolic Ugv638 B/ C Ratio 18.3 Ratio 08/08/2015 Comp Metabolic Grx060 CA LCIUM 8.9 mg/dL 08/08/2015 Comp Metabolic Udz295 AL K PHOS 84 U/L 08/08/2015 Comp Metabolic Lwg252 T(SGOT) 20 U/L 08/08/2015 Comp Metabolic Tmb469 AL T(SGPT) 18 U/L 08/08/2015 Comp Metabolic Zyg978 BI LI T 0.6 mg/dL 08/08/2015 Comp Metabolic Znr120 AL BUMIN 3.3 g/dL 08/08/2015 Comp Metabolic Kxi953 TP RO 5.9 g/dL 08/08/2015 Comp Metabolic Gmn216 GL OB 2.6 g/dL 08/08/2015 Comp Metabolic Qgq366 A/ G Ratio 1.3 Ratio 08/08/2015 Comp Metabolic Tcb843 Os mo 283 mOsmo 08/08/2015 Cbc With [...] 30.0 pg 08/08/2015 Cbc With Differential Ord2 [place]% 8.2 % 08/08/2015 Cbc With Differential Ord2 [...] 2.90 K/ul 08/08/2015 Cbc With Differential Ord2 [place] ABS# 0.9 K/ul 08/08/2015 Cbc With Differential [...] Ord93 BILI I 0.5 mg/dL 08/08/2015 Pt Bpt4824 PT 31.8 seconds 08/05/2015 Pt Eah7149 INR 3.2 08/05/2015 Pt Bzb5559 Low Intensity - 1.5-2.0 08/05/2015 Pt Sbl1621 Mod intensity - 2.0-3.0 08/05/2015 Pt Nbn5670 Hi intensity - 3.0-4.0 08/05/2015 Pt Zso1621 PT 27.4 seconds 06/27/2015 Pt Ugl4186 INR 2.6 06/27/2015 Pt Uyh9252 Low Intensity - 1.5-2.0 06/27/2015 Pt Ysl4303 Mod intensity - 2.0-3.0 06/27/2015 Pt Eeu4267 Hi intensity - 3.0-4.0 06/27/2015 Tsh Ord6 [...] Ord2 RDW 15.1 % 05/31/2015 Free T4 Iuu885 FREE T4 1.89 ng/dL 05/31/2015 Comp Metabolic Sff639 NA 140 mEq/L 05/31/2015 Comp Metabolic Vuu638 K 3.3 mEq/L 05/31/2015 Comp Metabolic Vdf173 CL 99 mEq/L 05/31/2015 Comp Metabolic Ayx885 CO2 30.0 mEq/L 05/31/2015 Comp Metabolic Wlk431 AN ION GAP 14 05/31/2015 Comp Metabolic Loo563 GL UCOSE 70 mg/dL 05/31/2015 Comp Metabolic Kji000 Cr eat 1.0 mg/dL 05/31/2015 Comp Metabolic Jse700 eG FR 55 ml/min/1.73m2 05/31 Comp Metabolic Pvv322 BUN 23 mg/dL 05/31/2015 Comp Metabolic Ldv917 B/ C Ratio 22.1 Ratio 05/31/2015 Comp Metabolic Qau064 CA LCIUM 8.9 mg/dL 05/31/2015 Comp Metabolic Thc140 AL K PHOS 86 U/L 05/31/2015 Comp Metabolic Wey036 T(SGOT) 28 U/L 05/31/2015 Comp Metabolic Yln641 AL T(SGPT) 30 U/L 05/31/2015 Comp Metabolic Kmj725 BI LI T 0.4 mg/dL 05/31/2015 Comp Metabolic Vlm899 AL BUMIN 3.3 g/dL 05/31/2015 Comp Metabolic Bqw465 TP RO 6.0 g/dL 05/31/2015 Comp Metabolic Nsm524 GL OB 2.7 g/dL 05/31/2015 Comp Metabolic Ffg145 A/ G Ratio 1.2 Ratio 05/31/2015 Comp Metabolic Ukg947 Os mo 282 mOsmo 05/31/2015 Pt Dwb5229 PT 23.3 seconds 04/15/2015 Pt Bun6291 INR 2.2 04/15/2015 Pt Gob7231 Low Intensity - 1.5-2.0 04/15/2015 Pt Wjz6178 Mod intensity - 2.0-3.0 04/15/2015 Pt Ozp2487 Hi intensity - 3.0-4.0 04/15/2015 Pt Ziu9363 PT 19.5 seconds 04/04/2015 Pt Fmd8244 INR 1.7 04/04/2015 Pt Hjt2990 Low Intensity - 1.5-2.0 04/04/2015 Pt Azd5681 Mod intensity - 2.0-3.0 04/04/2015 Pt Mvs7559 Hi intensity - 3.0-4.0 04/04/2015 Pt Czt1038 PT 39.8 seconds 04/01/2015 Pt Laz8965 INR 4.3 04/01/2015 Pt Dnt8168 Low Intensity - 1.5-2.0 04/01/2015 Pt Oxg4177 Mod intensity - 2.0-3.0 04/01/2015 Pt Vvj9694 Hi intensity - 3.0-4.0 04/01/2015 Metabolic Ord15 [...] Metabolic Ord15 CALCIUM 8.7 mg/dL 02/28/2015 Pt Jdr3743 PT 31.4 seconds 02/28/2015 Pt Nem2012 INR 3.2 02/28/2015 Pt Dza2691 Low Intensity - 1.5-2.0 02/28/2015 Pt Wgg6740 Mod intensity - 2.0-3.0 02/28/2015 Pt Zto6250 Hi intensity - 3.0-4.0 02/28/2015 Pt Djk8157 PT 23.2 seconds 01/18/2015 Pt Enl6807 INR 2.1 01/18/2015 Pt Trm0606 Low Intensity - 1.5-2.0 01/18/2015 Pt Ayw3421 Mod intensity - 2.0-3.0 01/18/2015 Pt Nfe6938 Hi intensity - 3.0-4.0 01/18/2015 Pt Hcr0767 PT 18.2 seconds 01/10/2015 Pt Gxe4591 INR 1.6 01/10/2015 Pt Xnd1577 Low Intensity - 1.5-2.0 01/10/2015 Pt Xeg3047 Mod intensity - 2.0-3.0 01/10/2015 Pt Ywl9579 Hi intensity - 3.0-4.0 01/10/2015 Review of Systems System Result Effective Dates Constitutional recent illness 01/31/2019 Constitutional No anorexia [...] clear 01/31/2019 None Full Exam - General 1995 Ears/Nose/Throat oral cavity/pharynx/larynx Overall: oropharyngeal mucosa clear 01/31/2019 None Full Exam - General 1995 Ears/Nose/Throat oral cavity/pharynx/larynx Overall: no masses 01/31/2019 [...] normal 01/10/2019 None Full Exam - General 1994 Ears/Nose/Throat lips/teeth/gingiva Overall: benign lips 01/10/2019 None Full Exam - General 1994 Ears/Nose/Throat [...] gingiva 10/27/2018 None Full Exam - General 1995 Ears/Nose/Throat lips/teeth/gingiva Overall: no masses 10/27/2018 None [...] masses 08/16/2018 None Full Exam - General 1995 Ears/Nose/Throat [...] clear 06/15/2017 None Full Exam - General 1995 Ears/Nose/Throat lips/teeth/gingiva Overall: benign lips 06/15/2017 None [...] clear 03/16/2017 None Full Exam - General 1995 Ears/Nose/Throat lips/teeth/gingiva Overall: benign lips 03/16/2017 None Full Exam - General 1995 Ears/Nose/Throat lips/teeth/gingiva Overall: normal dentition 03/16/2017 None Full Exam - General 1995 Ears/Nose/Throat lips/teeth/gingiva Overall: benign gingiva 03/16/2017 None Full Exam - General 1995 Ears/Nose/Throat lips/teeth/gingiva Overall: no masses 03/16/2017 None Full Exam - General 1994 Ears/Nose/Throat oral cavity/pharynx/larynx Overall: oral mucosa clear 03/16/2017 None Full Exam - General 1994 Ears/Nose/Throat oral cavity/pharynx/larynx Overall: oropharyngeal mucosa clear 03/16/2017 None Full Exam - General 1995 Ears/Nose/Throat oral cavity/pharynx/larynx Overall: no masses 03/16/2017 [...] Date URINALYSIS NONAUTO W /O SCOPE CPT-4: 09199 01/10/2019 URINALYSIS NONAUTO W /O SCOPE CPT-4: 71342 12/05/2018 ROCEPHIN, PER 250 MG CPT-4: J0696 10/27/2018 URINALYSIS NONAUTO W /O SCOPE CPT-4: 85765 10/27/2018 ADMIN INFLUENZA VIRU S VAC CPT-4: G0008 03/24/2018 ADMIN PNEUMOCOCCAL V ACCINE SNOMED CT: [id number] CPT-4: G0009 03/24/2018 FLU VACC PRSV FREE I NC ANTIG Formatting Model/CDA Sections, Assigned to/Dorothea Tan CPT-4: [id number] 03/24/2018 Pneumococcal Polysac charide Vaccine, 23-Valent, Ad CPT-4: 09276 03/24/2018 TRIAMCINOLONE ACET I [place] NOS CPT-4: J3301 06/15/2017 THER/PROPH/DIAG INJ SC/IM CPT-4: 61662 06/15/2017 ADMIN PNEUMOCOCCAL V ACCINE SNOMED CT: 43577159 CPT-4: G0009 03/16/2017 ADMIN INFLUENZA VIRU S VAC CPT-4: G0008 03/16/2017 FLU VAC NO PRSV 4 VA L 3 YRS+ CPT-4: 37987 03/16/2017 PNEUMOCOCCAL VACC [address]: [id number] CPT-4: 16632 03/16/2017 URINALYSIS NONAUTO W /O SCOPE CPT-4: 29624 08/26/2016 THER/PROPH/DIAG INJ SC/IM CPT-4: 14955 07/22/2016 TRIAMCINOLONE ACET I [place] NOS CPT-4: J3301 07/22/2016 ROCEPHIN, PER 250 MG CPT-4: J0696 07/22/2016 TRIAMCINOLONE ACET I [place] NOS CPT-4: J3301 02/05/2015 Vital Signs Date Vital 01/31/2019 Blood Pressure 1: 100/60 Code: 8480-6 BMI: 33.4 Code: 81069-7 Heart Rate 1: 85 bpm Height: 5'7" SpO2: 97% Weight: 213 lbs 01/10/2019 BMI: 32.9 Code: 49048-5 Heart Rate 1: 74 bpm Height: 5'7" Weight: 210 lbs 12/05/2018 Blood Pressure 1: 132/70 Code: 8480-6 BMI: 32.4 Code: 50985-8 Heart Rate 1: 84 bpm Height: 5'7" SpO2: 91% Weight: 207 lbs 11/17/2018 Blood Pressure 1: 102/62 Code: 8480-6 BMI: 32.4 Code: 64804-3 Heart Rate 1: 83 bpm Height: 5'7" SpO2: 94% Weight: 207 lbs 10/27/2018 Blood Pressure 1: 120/74 Code: 8480-6 BMI: 32.4 Code: 75005-0 Heart Rate 1: 65 bpm Height: 5'7" SpO2: 97% Weight: 207 lbs 09/27/2018 Blood Pressure 1: 128/74 Code: 8480-6 BMI: 32.4 Code: 49234-9 Heart Rate 1: 92 bpm Height: 5'7" SpO2: 97% Weight: 207 lbs 08/16/2018 Blood Pressure 1: 104/66 Code: 8480-6 BMI: 32.3 Code: 28550-1 Heart Rate 1: 94 bpm Height: 5'7" SpO2: 96% Weight: 206 lbs 07/11/2018 Blood Pressure 1: 102/68 Code: 8480-6 BMI: 34.5 Code: 02406-3 Heart Rate 1: 101 bpm Height: 5'7" SpO2: 98% Weight: 220 lbs 03/24/2018 Blood Pressure 1: 130/72 Code: 8480-6 BMI: 33.4 Code: 56057-3 Heart Rate 1: 82 bpm Height: 5'7" SpO2: 93% Weight: 213 lbs 11/18/2017 Blood Pressure 1: 128/70 Code: 8480-6 BMI: 33.6 Code: 62323-2 Heart Rate 1: 98 bpm Height: 5'7" SpO2: 97% Weight: 214 lbs 8 oz 09/30/2017 Blood Pressure 1: 100/50 Code: 8480-6 BMI: 34.0 Code: 22243-0 Heart Rate 1: 66 bpm Height: 5'7" SpO2: 96% Weight: 217 lbs 08/17/2017 Blood Pressure 1: 104/60 Code: 8480-6 BMI: 33.7 Code: 72377-1 Heart Rate 1: 99 bpm Height: 5'7" SpO2: 97% Weight: 215 lbs 06/15/2017 Blood Pressure 1: 120/64 Code: 8480-6 BMI: 33.5 Code: 24435-9 Heart Rate 1: 91 bpm Height: 5'7" SpO2: 94% Weight: 214 lbs 04/01/2017 Blood Pressure 1: 110/68 Code: 8480-6 BMI: 154.4 Code: 95324-1 Heart Rate 1: 66 bpm Height: 2'7" SpO2: 95% Weight: 211 lbs 03/16/2017 Blood Pressure 1: 130/72 Code: 8480-6 BMI: 33.0 Code: 42515-8 Heart Rate 1: 95 bpm Height: 5'7" SpO2: 97% Weight: 211 lbs 02/09/2017 Blood Pressure 1: 120/70 Code: 8480-6 BMI: 32.9 Code: 12992-7 Heart Rate 1: 78 bpm Height: 5'7" SpO2: 96% Weight: 210 lbs 10/13/2016 Blood Pressure 1: 118/76 Code: 8480-6 BMI: 32.6 Code: 27177-2 Heart Rate 1: 97 bpm Height: 5'7" SpO2: 98% Weight: 208 lbs 07/31/2016 Blood Pressure 1: 110/64 Code: 8480-6 BMI: 32.1 Code: 02728-7 Heart Rate 1: 79 bpm Height: 5'7" SpO2: 94% Weight: 205 lbs 07/22/2016 Blood Pressure 1: 108/74 Code: 8480-6 BMI: 32.1 Code: 89954-2 Heart Rate 1: 71 bpm Height: 5'7" SpO2: 97% Temperature: 36.9 (C ) / 98.4 (F) Weight: 205 lbs 05/01/2016 Blood Pressure 1: 120/72 Code: 8480-6 BMI: 32.7 Code: 83984-2 Heart Rate 1: 75 bpm Height: 5'7" SpO2: 94% Weight: 209 lbs 04/06/2016 Blood Pressure 1: 106/62 Code: 8480-6 BMI: 32.7 Code: 24591-3 Heart Rate 1: 83 bpm Height: 5'7" SpO2: 97% Weight: 209 lbs 03/06/2016 Blood Pressure 1: 112/68 Code: 8480-6 BMI: 32.7 Code: 03032-9 Heart Rate 1: 90 bpm Height: 5'7" SpO2: 97% Weight: 209 lbs 03/03/2016 Blood Pressure 1: 120/62 Code: 8480-6 BMI: 32.7 Code: 79496-5 Heart Rate 1: 92 bpm Height: 5'7" SpO2: 98% Weight: 209 lbs 02/07/2016 Blood Pressure 1: 110/64 Code: 8480-6 BMI: 32.7 Code: 23840-6 Heart Rate 1: 87 bpm Height: 5'7" SpO2: 97% Weight: 209 lbs 12/13/2015 Blood Pressure 1: 110/64 Code: 8480-6 BMI: 33.5 Code: 64972-4 Heart Rate 1: 90 bpm Height: 5'7" SpO2: 97% Weight: 214 lbs 12/03/2015 Blood Pressure 1: 132/76 Code: 8480-6 BMI: 33.4 Code: 63728-3 Heart Rate 1: 82 bpm Height: 5'7" SpO2: 99% Weight: 213 lbs 11/20/2015 Blood Pressure 1: 108/68 Code: 8480-6 BMI: 32.4 Code: 02997-1 Heart Rate 1: 77 bpm Height: 5'7" SpO2: 97% Weight: 207 lbs 09/17/2015 Blood Pressure 1: 122/76 Code: 8480-6 BMI: 33.0 Code: 82294-0 Heart Rate 1: 91 bpm Height: 5'7" SpO2: 97% Weight: 211 lbs 05/31/2015 Blood Pressure 1: 128/82 Code: 8480-6 BMI: 33.4 Code: 99308-2 Heart Rate 1: 98 bpm Height: 5'7" SpO2: 99% Weight: 213 lbs 02/05/2015 Blood Pressure 1: 128/80 Code: 8480-6 BMI: 32.6 Code: 96318-8 Heart Rate 1: 86 bpm Height: 5'7" SpO2: 97% Weight: 208 lbs 11/20/2014 Blood Pressure 1: 128/90 Code: 8480-6 BMI: 30.9 Code: 66338-8 Heart Rate 1: 94 bpm Height: 5'7" Weight: 197 lbs Functional Status No Functional Status data History of Present Illness Symptom Name Status Resu lt Effective Date Notes Quality chronic 01/31/2019 None Quality primary hypert [...] ongoing 11/20/2015 None Hospital Follow Up _ [facility] er: fall 09/17/2015 None Hospital [...] Findings Denies fever 05/31/2015 None hypothyroid Quality copy chief silvestre 02/05/2015 None hypothyroid Pertinent Findings coarse [...] Denies extremity weakness 11/20/2014 None hypothyroid Quality copy chief silvestre 11/20/2014 None hypothyroid Pertinent Findings coarse hair 11/20/2014 None hypothyroid Pertinent Findings dry skin 11/20/2014 None hypothyroid Pertinent Findings hair loss 11/20/2014 None edema Quality intermitte nt 11/20/2014 None edema Location on both l egs 11/20/2014 None edema Location on both a nkles 11/20/2014 None Advance Directives No Advance Directive data Encounters Encounter Performer Loca tion Codes Date ( 61574 EST. P ATIENT, LEVEL IV Diagnosis: Atrophy of thyroid (acquired)[ICD10: E03.4] Diagnosis: Other fatigue[ICD10: R53.83] Diagnosis: Other hypotension[ICD10: I95.89] Valerie Pisano MD, [facility] CPT-4: 09851 01/31/2019 71206 EST. PATIENT, LEVEL III Diagnosis: Dysuria[ICD10: R30.0] [facility] CPT-4: 38195 01/10/2019 ([id number]) 62918 EST. P ATIENT, LEVEL III Diagnosis: Urinary tract infection, site not specified[ICD10: N39.0] Brielle Pisano MD, [facility] CPT-4: 07825 12/05/2018 ([id number]) 31092 EST. P ATIENT, LEVEL III Diagnosis: Contusion of right lower leg, initial encounter[ICD10: S80.11XA] Diagnosis: 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 but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[ICD10: Z79.01] [facility] CPT-4: 22001 11/17/2018 ([id number]) 83815 EST. P ATIENT, LEVEL III Diagnosis: Urinary tract infection, site not specified[ICD10: N39.0] Brielle Pisano MD, [facility] CPT-4: 94924 10/27/2018 ([id number]) 72481 EST. P ATIENT, LEVEL IV Diagnosis: Atrophy of thyroid (acquired)[ICD10: E03.4] Diagnosis: Essential (primary) hypertension[ICD10: I10] Diagnosis: Other allergic rhinitis[ICD10: J30.89] Diagnosis: Other skin changes[ICD10: R23.8] Diagnosis: Chronic atrial fibrillation[ICD10: I48.2] Diagnosis: shelter (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[ICD10: Z79.01] Valerie Pisano MD, [facility] CPT-4: 44983 09/27/2018 ([id number]) 76449 EST. P ATIENT, LEVEL IV Diagnosis: Essential (primary) hypertension[ICD10: I10] Diagnosis: Atrophy of thyroid (acquired)[ICD10: E03.4] Diagnosis: Sebaceous cyst[ICD10: L72.3] Diagnosis: Chronic atrial fibrillation[ICD10: I48.2] Diagnosis: shelter (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[ICD10: Z79.01] Valerie Pisano MD, [facility] CPT-4: 18475 08/16/2018 ([id number]) 00439 EST. P ATIENT, LEVEL IV Diagnosis: Atrophy of thyroid (acquired)[ICD10: E03.4] Diagnosis: Essential (primary) hypertension[ICD10: I10] Diagnosis: Other fatigue[ICD10: R53.83] Diagnosis: Localized edema[ICD10: R60.0] Valerie Pisano MD, [facility] CPT-4: 56835 07/11/2018 ([id number]) 96332 EST. P ATIENT, LEVEL IV Diagnosis: Essential (primary) hypertension[ICD10: I10] Diagnosis: Atrophy of thyroid (acquired)[ICD10: E03.4] Diagnosis: Chronic atrial fibrillation[ICD10: I48.2] Valerie Pisano MD, C CPT-4: 45909 03/24/2018 ([id number]) 48100 EST. P ATIENT, LEVEL IV Diagnosis: Essential (primary) hypertension[ICD10: I10] Diagnosis: Atrophy of thyroid (acquired)[ICD10: E03.4] Diagnosis: Chronic atrial fibrillation[ICD10: I48.2] Valerie Pisano MD, [facility] CPT-4: 71733 11/18/2017 53406 EST. PATIENT, LEVEL IV Diagnosis: Localized edema[ICD10: R60.0] Roxie Pisano MD, [facility] CPT-4: 28547 09/30/2017 ([id number]) 54252 EST. P ATIENT, LEVEL III Diagnosis: Essential (primary) hypertension[ICD10: I10] Valerie Pisano MD, [facility] CPT-4: 96209 08/17/2017 ([id number]) 17012 EST. P ATIENT, LEVEL IV Diagnosis: Essential (primary) hypertension[ICD10: I10] Diagnosis: Atrophy of thyroid (acquired)[ICD10: E03.4] Diagnosis: Chronic atrial fibrillation[ICD10: I48.2] Diagnosis: Cervicalgia[ICD10: M54.2] Diagnosis: Other muscle spasm[ICD10: M62.838] Valerie Pisano MD, [facility] CPT- 4: 41397 06/15/2017 08343 EST. PATIENT, LEVEL III Diagnosis: Laceration without foreign body of other finger without damage to nail, initial encounter[ICD10: S61.218A] Roxie Pisano MD, [facility] CPT-4: 82198 04/01/2017 ([id number]) 81386 EST. P ATIENT, LEVEL IV Diagnosis: Chronic atrial fibrillation[ICD10: I48.2] Diagnosis: shelter (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[ICD10: Z79.01] Diagnosis: Encounter for immunization[ICD10: Z23] Diagnosis: Atrophy of thyroid (acquired)[ICD10: E03.4] Valerie Pisano MD, [facility] CPT-4: 45092 03/16/2017 ([id number]) 65625 EST. P ATIENT, LEVEL IV Diagnosis: Chronic atrial fibrillation[ICD10: I48.2] Diagnosis: Essential (primary) hypertension[ICD10: I10] Diagnosis: Other fatigue[ICD10: R53.83] Diagnosis: shelter (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[ICD10: Z79.01] Diagnosis: Atrophy of thyroid (acquired)[ICD10: E03.4] Valerie Pisano MD, [facility] CPT-4: 82797 02/09/2017 ([id number]) 30820 EST. P ATIENT, LEVEL IV Diagnosis: Essential (primary) hypertension[ICD10: I10] Diagnosis: Chronic atrial fibrillation[ICD10: I48.2] Diagnosis: Tinea corporis[ICD10: B35.4] Diagnosis: 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 but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[ICD10: Z79.01] Diagnosis: Other skin changes[ICD10: R23.8] Valerie Pisano MD, [facility] CPT-4: 18465 10/13/2016 67858 EST. PATIENT, LEVEL III Diagnosis: Other acute sinusitis[ICD10: J01.80] Diagnosis: Other allergic rhinitis[ICD10: J30.89] Roxie Pisano MD, [facility] CPT-4: 32103 07/31/2016 ([id number]) 55069 EST. P ATIENT, LEVEL III Diagnosis: Acute recurrent maxillary sinusitis[ICD10: J01.01] Valerie Pisano MD, [facility] CPT-4: 03465 07/22/2016 33731 EST. PATIENT, LEVEL IV Diagnosis: Essential (primary) hypertension[ICD10: I10] Diagnosis: Other allergic rhinitis[ICD10: J30.89] Diagnosis: Localized edema[ICD10: R60.0] Roxie Pisano MD, [facility] CPT-4: 69343 05/01/2016 55519 EST. PATIENT, LEVEL III Diagnosis: Cellulitis of left lower limb[ICD10: L03.116] Diagnosis: Localized edema[ICD10: R60.0] Roxie Pisano MD, [facility] CPT-4: 42137 04/06/2016 ([id number]) Miscellaneou s no charge Diagnosis: Cellulitis of left lower limb[ICD10: L03.116] Diagnosis: Localized edema[ICD10: R60.0] Roxie Pisano MD, [facility] CPT-4: 71912 03/10/2016 ([id number]) Miscellaneou s no charge Diagnosis: Cellulitis of left lower limb[ICD10: L03.116] Roxie Pisano MD, [facility] CPT-4: 16626 03/06/2016 06357 EST. PATIENT, LEVEL IV Diagnosis: Cellulitis of left lower limb[ICD10: L03.116] Diagnosis: Localized edema[ICD10: R60.0] Roxie Pisano MD, [facility] CPT-4: 40291 03/03/2016 ([id number]) 31695 EST. P ATIENT, LEVEL III Diagnosis: Essential (primary) hypertension[ICD10: I10] Diagnosis: shelter (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[ICD10: Z79.01] Diagnosis: Chronic atrial fibrillation[ICD10: I48.2] Brielle Pisano MD, [facility] CPT-4: 93083 02/07/2016 ([id number]) 60382 EST. P ATIENT, LEVEL III Diagnosis: Iliotibial band syndrome, right leg[ICD10: M76.31] Diagnosis: Localized edema[ICD10: R60.0] Brielle Pisano MD, [facility] CPT- 4: 06721 12/13/2015 ([id number]) 27962 EST. P ATIENT, LEVEL III Diagnosis: Localized edema[ICD10: R60.0] Diagnosis: Essential (primary) hypertension[ICD10: I10] Brielle Pisano MD, [facility] CPT-4: 78602 12/03/2015 ([id number]) 64053 EST. P ATIENT, LEVEL IV Diagnosis: 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 but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[ICD10: Z79.01] Diagnosis: Other skin changes[ICD10: R23.8] Diagnosis: Localized edema[ICD10: R60.0] Diagnosis: Pain in right foot[ICD10: M79.671] Valerie Pisano MD, [facility] CPT- 4: 72676 11/20/2015 37860 EST. PATIENT, LEVEL IV Diagnosis: Essential (primary) hypertension[ICD10: I10] Diagnosis: shelter (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[ICD10: Z79.01] Diagnosis: Muscle spasm of back[ICD10: M62.830] Roxie Pisano MD, [facility] CPT- 4: 85729 09/17/2015 ([id number]) 66920 EST. P ATIENT, LEVEL IV Diagnosis: Localized edema[ICD10: R60.0] Diagnosis: Other specified hypothyroidism[ICD10: E03.8] Diagnosis: Essential (primary) hypertension[ICD10: I10] [facility] CPT-4: 32554 05/31/2015 ([id number]) 57407 EST. P ATIENT, LEVEL III Diagnosis: ALLERGIC RHINITIS[ICD9: 477.9] Diagnosis: ESSENTIAL HYPERTENSION[ICD9: 401.9] [facility] CPT-4: 05310 02/05/2015 ([id number]) OFFICE VISI T NEW - LEVEL 4 Diagnosis: ESSENTIAL HYPERTENSION[ICD9: 401.9] Diagnosis: HYPOTHYROIDISM[ICD9: 244.9] Diagnosis: ACTINIC KERATOSIS[ICD9: 702.0] [facility] CPT-4: 58036 11/20/2014 Plan of Care Planned Activity Notes C odes Status Date Visit Plan: Hypothyroidism - pt wit h [...] then recommend a low dose diuretic. 01/31/2019 Patient Education: Patient Medication Summary Completed 01/31/2019 Care Plan: Tsh Pending 01/31/2019 Care Plan: Free T4 Pending 01/31/2019 Visit Plan: Dysuria - negative UA - pt is to increase her fluid intake and notify clinic if symptoms do not improve, if they worsen, or with any other changes, questions, or concerns. 01/10/2019 Appointment: Roxie Cazares WPtel: [address] [place], [place] [phone] (30 min) Complex 01/10/2019 Patient Education: Patient Medication Summary Completed 01/10/2019 Visit Plan: UTI - pt with positive urinalysis - culture sent if appropriate. Antibiotic electronically prescribed to pt's pharmacy of choice. Pt to call if symptoms do not improve. 12/05/2018 Appointment: Brielle Cavazos WPtel: [phone] [facility] [place] [address] (30 min) Complex 12/05/2018 Patient Education: Patient Medication Summary Completed 12/05/2018 Care Plan: Urine Culture Pending 12/05/2018 Visit Plan: Contusion -right lower leg -continue to monitor symptoms -call if does not resolve or other symptoms develop. Patient verbalized understanding of plan. 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 buttermaker use of anti coagulants -check PT/INR 11/17/2018 Appointment: Brielle Cavazos WPtel: [address] [place], [place] [phone] [place] [address] (30 min) Complex 11/17/2018 Patient Education: Patient Medication Summary Completed 11/17/2018 Visit Plan: UTI - pt with positive urinalysis - culture sent if appropriate. Antibiotic electronically prescribed to pt's pharmacy of choice. Pt to call if symptoms do not improve. 10/27/2018 Appointment: Brielle Cavazos WPtel: [address] [place], [place] [phone] [place] [address] (10 min) Simple 10/27/2018 Patient Education: Patient [...] Dr. Hernandez. 09/27/2018 Appointment: Valerie Pisano WPtel: [address] [place], [place] [address] (15 min) Moderate 09/27/2018 Patient Education: Patient Medication Summary Completed 09/27/2018 Patient Education: Hypertension Completed 09/27/2018 Visit Plan: Hypertension - sana padron - continue with current medications, continue with [...] daily. 08/16/2018 Appointment: Valerie Pisano WPtel: [phone] [facility] (15 min) Moderate 08/16/2018 Patient Education: Patient Medication Summary Completed 08/16/2018 Patient Education: Hypertension Completed 08/16/2018 Patient Education: Patient Medication Summary Completed 07/29/2018 Appointment: Brielle Cavazos WPtel: [phone] [phone] [place] (15 min) Moderate 07/12/2018 Visit Plan: [...] twice daily. 07/11/2018 Appointment: Valerie Pisano WPtel: [facility] (15 min) Moderate 07/11/2018 [...] given today. 03/24/2018 Appointment: Valerie Pisano WPtel: [facility]5 [facility] (15 min) Moderate 03/24/2018 Patient Education: Patient [...] of control. 11/18/2017 Appointment: Valerie Pisano WPtel: [address] [place], [place] [address] (15 min) Moderate 11/18/2017 Patient Education: Patient Medication Summary Completed 11/18/2017 Referral: [facility] [place] [facility] WPtel: 1 [facility]66[facility] Pt notified at appointment Appointment Confirmed [...] Unna Boots 09/30/2017 Appointment: Roxie Cazares WPtel: [phone] [facility] (30 min) Complex 09/30/2017 Patient Education: Patient Medication Summary Completed 09/30/2017 Care Plan: Referral Order SNOMED-CT : [id number] Pending 09/30/2017 Visit Plan: Hypertension - well [...] this time. 08/17/2017 Appointment: Valerie Pisano WPtel: [phone] [facility] (15 min) Moderate 08/17/2017 Patient Education: Patient [...] physical therapy - will refer to [facility] [place] physical therapy. RX for voltaren to neck muscles. allergies - kenalog 40mg im [employer]ist[employer] myeres squibb - lot # [id number] expires september 2018 06/15/2017 Visit Plan: Hypertension [...] physical therapy - will refer to [facility] [place] [facility] therapy. RX for voltaren to neck muscles. 06/15/2017 Appointment: Valerie Pisano WPtel: [phone] [facility] [place] (15 min) Moderate 06/15/2017 Patient Education: Patient Medication Summary Completed 06/15/2017 Care Plan: Referral Order SNOMED-CT : [id number] Pending 06/15/2017 Appointment: Nurse Visit 04/05/2017 Appointment: [...] booster. 04/01/2017 Appointment: [facility]el[phone] [facility] [place] (15 min) Moderate 04/01/2017 Patient Education: Patient [...] today 03/16/2017 Appointment: Val[facility] Pisano WPtel: [phone] [facility] (15 min) Moderate 03/16/2017 [...] of control. 1 pill wed/wed/wed, 1/2 pill /th/sat/sun take - This is a new order [...] spray. 02/09/2017 Appointment: Valerie Pisano WPtel: [phone] [facility] (15 min) Moderate 02/09/2017 Patient Education: Patient [...] for nystatin 10/13/2016 Appointment: Valerie Pisano WPtel: [phone] [facility] (15 min) Moderate 10/13/2016 Patient Education: Patient Medication Summary Completed 10/13/2016 Patient Education: Obesity Completed 10/13/2016 Patient Education: Hypertension Completed 10/13/2016 Care Plan: Urine Culture Pending 08/31/2016 Appointment: Roxie Cazares WPtel: [phone] [facility] Lab Draw 08/27/2016 Appointment: Nurse Visit 08/26/2016 [...] allergy spray. 07/31/2016 Appointment: Brielle Cavazos WPtel: [phone] [phone] [place] (30 min) Complex 07/31/2016 Patient Education: Patient Medication Summary Completed 07/31/2016 Patient Education: Obesity Completed 07/31/2016 Visit Plan: Sinusitis - Pt has acut e infection - pain in face, maxillary region, Pt informed to use decongestant, RX given to patient, sinus rinses also recommended. Call if symptoms do not show improvement. 07/22/2016 Appointment: Valerie Pisano WPtel: [phone] [facility] (15 min) Moderate 07/22/2016 Patient Education: Patient [...] peripheral edema. 05/01/2016 Appointment: [facility] Cav[facility]os [facility]Ptel[phone] [phone] (30 min) Complex 05/01/2016 Patient Education: Patient [...] peripheral edema. 04/06/2016 Appointment: Roxie Cazares WPtel: [phone] [phone] (30 min) Complex 04/06/2016 Patient Education: Patient Medication Summary Completed 04/06/2016 Patient Education: Obesity Completed 04/06/2016 Visit Plan: left foot - improved - pt finished with antibiotics - continue to monitor - notify clinic with any concerns. Repeat INR today. 03/10/2016 Appointment: Brielle Cavazos WPtel: [facility] [phone] (30 min) Complex 03/10/2016 Patient Education: Patient Medication Summary Completed 03/10/2016 Visit Plan: Cellulitis - continue w ith oral antibiotics as previously directed, return to clinic as previously directed, call for acute change in symptoms, worsening redness, warmth, discharge. 03/06/2016 Appointment: Brielle Cavazos WPtel: [facility]5 [phone] (15 min) Moderate 03/06/2016 Patient Education: Patient Medication Summary Completed 03/06/2016 Patient Education: Obesity Completed 03/06/2016 Visit Plan: Cellulitis - continue w ith oral antibiotics as previously directed, return to clinic as previously directed, call for acute change in symptoms, worsening redness, warmth, discharge. 03/03/2016 Appointment: Brielle Cavazos WPtel: [facility]5 [phone] (15 min) Moderate 03/03/2016 Patient Education: Patient [...] and 3.5. 02/07/2016 Appointment: Brielle Cavazos WPtel: [phone] [phone] (30 min) Complex 02/07/2016 Patient Education: Patient Medication Summary Completed 02/07/2016 Patient Education: Obesity Completed 02/07/2016 Patient Education: Hypertension Completed 02/07/2016 Appointment: Brielle Cavazos WPtel: [phone] (30 min) Complex 02/04/2016 Visit Plan: Iliotibial [...] edema. 12/13/2015 Appointment: Brielle Cavazos WPtel: [phone] [place] [phone] (15 min) Moderate 12/13/2015 Patient Education: Patient [...] home. 12/03/2015 Appointment: Brielle Cavazos WPtel: [phone] [phone] (30 min) Complex 12/03/2015 Patient Education: Patient [...] Hypertension Completed 02/05/2015 Appointment: Valerie Pisano WPtel: [facility] (15 min) Moderate 01/29/2015 Visit Plan: Hypertension [...] control. 11/20/2014 Appointment: Valerie Pisano WPtel: [phone] [facility] [place] ([place]) New Patient 11/20/2014 Patient Education: Patient Medication Summary Completed 11/20/2014 Patient Education: Hypertension Completed 11/20/2014 Patient Education: Patient Medication Summary Completed 10/19/2014 Referral: [facility] WPtel: Referral Appointment Requested Referral: [facility] Ref[facility] Appointment Confirmed Instructions Comment . UTI - pt with posi tive urinalysis - culture sent if appropriate. Antibiotic electronically prescribed to pt's pharmacy of choice. Pt to call if symptoms do not improve. CHECK LABS TODAY-WE WILL CALL YOU AFTER [...] in blood pressure readings at home. . left foot - improv ed - pt finished with antibiotics - continue to monitor - notify clinic with any concerns. Repeat INR today. . Laceration of left index finger approximately 2 cm long and 1 mm deep - wound cleaned and debrided - ROSLYN and steri strips applied - pt is to return to clinic tomorrow for dressing change and wound check. Abx sent, pt is to check PT/INR on Wednesday. Pt given script for tetanus booster. . Edema - pt has bee n [...] go back to one pill twice daily. get blood work one w [facility] before next appt - fasting labs Decrease [...] of leg - rx for nystatin . Hypertension - wel l controlled - [...] spray. Kenalog injection today in the office. Monitor your blood p ressure at home [...] of control. 1 pill wed/wed/wed, 1/2 pill tues/thurs/sat/sun take - This is a new order [...] of control. 1 pill wed/wed/wed, 1/2 pill tues/thurs/ sat/sun take - This is a new [...] continue with supportive care at this time. . Atrial Fibrillatio n - pt on [...] and advanced age Pneumovax 23 given today. Check your PT INR on Wednesday or [...] to further attempt to reduce peripheral edema. hold the lisinopril until you get back [...] will then recommend a low dose diuretic. . Dysuria - negative UA - pt is to increase her fluid intake and notify clinic if symptoms do not improve, if they worsen, or with any other changes, questions, or concerns. . Edema - pt has bee n advised to elevate legs to prevent dependent edema, compression has been recommended to help to naturally decrease peripheral edema. Diuretic use has been discussed and pt has been instructed in appropriate use of such medication as necessary to further attempt to reduce peripheral edema. Will refer to wound care for possible Unna Boots . Sinusitis - Pt has acute infection [...] neck muscles. allergies - kenalog 40mg im [employer] squibb - lot # [id number] expires september 2018 . Hypertension - wel [...] symptoms develop. Patient verbalized understanding of plan. 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 buttermaker use of anti coagulants -check PT/INR . [...]
--- OUTSIDE RECORDS SUMMARY | 2019-09-12 10:45 | XMS REPORT | CCD ---
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 Role Phone PP Unavailable CCM Unavailable Summary Purpose Interface Exchange Insurance Providers Payer name Policy type / Coverage type Covered alliance party ID Effective Begin Date Effective End Date WPS Medicare Part B Medicare Part B [id number] 2018 Unknown [employer] Medicare Part B [id number] 2018 Unknown Family history Sister Diagnosis Age At Onset defect Unknown Breast cancer Unknown Daughter Diagnosis Age At Onset Breast cancer Unknown Mother Diagnosis Age At Onset No Family Disease Entered N/A Social History Social History Element Codes Description Effective Dates Marital status Unknown M arried Lane 11/20/2014 Number of children Unknown 6 11/20/2014 Employment Unknown Retir ed 11/20/[address]: 3547042 Quit over 10 years ago 1963 11/20/2014 Alcohol history Unknown occasionally drinks alcohol 11/20/2014 Allergies, Adverse Reactions, Alerts Substance Reaction Codes Entered Date Inactivated Date Status SULFA(SULFONAMIDE AN TIBIOTICS) rash Unknown 11/20/2014 No Inactive Date Active Past Medical History Illness Codes Condition Status Onset Date Resolved Date Dysuria ICD-9: 788.1 ICD-10: R30.0 Active 08/26/2016 Unknown Urinary tract infect ion, site not specified ICD-9: 599.0 ICD-10: N39.0 Active 02/13/2016 Unknown Contusion of right l ower leg, initial encounter ICD-9: 924.4 ICD-10: S80.11XA 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/2018 Unknown detention (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 ICD-9: V58.61 ICD-10: Z79.01 Active 02/06/2016 Unknown Atrophy of thyroid ( acquired) ICD-9: 244.8 [...] ICD-9: 782.3 ICD-10: R60.0 Active 04/30/2016 Unknown Other fatigue ICD-9: 780.79 ICD-10: R53.83 Active 02/11/2016 Unknown Abnormal results of kidney function studies [...] Unknown HYPOTHYROIDISM ICD-9: 244.9 Active 11/19/2014 Unknown detention current us 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 therapy ICD-9: V58.61 Active 10/19/2014 Unknown Problems Condition Codes Effectiv e Dates Condition Status Dysuria ICD-9: 788.1 ICD-10: R30.0 08/26/2016 Active Urinary tract infect ion, site not specified ICD-9: 599.0 ICD-10: N39.0 02/13/2016 Active Contusion of right l ower leg, initial encounter ICD-9: 924.4 ICD-10: S80.11XA 11/17/2018 Active lobsterman (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 ICD-9: V58.61 ICD-10: Z79.01 02/06/2016 Active Atrophy of thyroid ( acquired) ICD-9: 244.8 [...] edema ICD-9: 782.3 ICD-10: R60.0 04/30/2016 Active Other fatigue ICD-9: 780.79 ICD-10: R53.83 02/11/2016 Active Abnormal results of kidney function studies [...] 11/19/2014 Active HYPOTHYROIDISM ICD-9: 244.9 11/19/2014 Active lobsterman current us 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 therapy ICD-9: V58.61 10/19/2014 Active Medications Medication Codes Instruc tions Start Date Stop Date Sta Fill Instructions Pyridium 200 mg tablet RxNorm: 2078117 1 Tablet(s) PO TID PRN 12/05/2018 No Stop Date Active Keflex 500 mg capsule RxNorm: 486495 1 Capsule(s) PO TID 12/05/2018 12/11/2018 Inactive Keflex 500 mg capsule RxNorm: 732265 1 Capsule(s) PO TID 11/17/2018 11/21/2018 Inactive doxycycline hyclate 100 mg capsule RxNorm: 2463696 1 Capsule(s) PO BID 10/31/2018 10/30/2018 In active doxycycline hyclate 100 mg capsule RxNorm: 0186607 1 Capsule(s) PO BID 10/31/2018 11/06/2018 In active Keflex 500 mg capsule RxNorm: 028254 1 Capsule(s) PO TID 10/27/2018 10/30/2018 Inactive ceftriaxone 500 mg s olution for injection RxNorm: 1535194 Inj 10/27/2018 10/27/2018 Inactive Coumadin 4 mg tablet RxNorm: 071111 1 Tablet(s) PO daily 08/16/2018 08/10/2019 Active this is an update to her RX - she will l et you know when she needs refill triamcinolone aceton sreekanth 0.025 % topical cream RxNorm: 1568996 1 Application TOP QI D 08/16/2018 No Stop Date Active levothyroxine 125 mc g tablet RxNorm: 303572 TAKE ONE TABLET BY MO [facility] DAILY ON WEDNESDAY, WED, AND WEDNESDAY, AND 1/2 TABLET ON ., , WED AND CYRIL. TAKE ON AN EMPTY STOMACH 08/04/2018 04/30/2019 Active meclizine 25 mg tablet RxNorm: 832354 1 Tablet(s) PO TID as needed Dizziness 07/22/2018 No Stop Date Active meclizine 25 mg tablet RxNorm: 332493 1 Tablet(s) PO TID as needed Dizziness 07/19/2018 07/21/2018 In active furosemide 40 mg tablet RxNorm: 755304 1 Tablet(s) BID take 1.5 tabs twice a da y x 7 days then 1 pill daily thereafter 07/11/2018 02/05/2019 Active Coumadin 4 mg tablet RxNorm: 918202 1 Tablet(s) PO daily except 1.5 pills on WEDNESDAY AND Wednesday07/11/2018 08/15/2018 Inactive this is an update to her RX - she will let you know when she needs refill warfarin 5 mg tablet RxNorm: 075561 Tablet(s) TAKE ONE TABLET BY MOUTH DAILY EXCEPT / TAKE 4 MG 04/06/2018 08/22/2019 Active diltiazem 60 mg tablet RxNorm: 632466 1/2 Tablet(s) PO QID 03/24/2018 No Stop Date Active levothyroxine 125 mc g tablet RxNorm: 755663 TAKE ONE TABLET BY [facility] DAILY ON WEDNESDAY, WED, AND WEDNESDAY, AND 1/2 TABLET ON , , WED AND WEDNESDAY. TAKE ON AN EMPTY STOMACH 02/02/2018 07/31/2018 Inactive Coumadin 4 mg tablet RxNorm: 993627 TAKE ONE TABLET BY MOUTH DAILY ON AND Wednesday10/14/2017 07/10/2018 Inactive nystatin 100,000 uni t/gram topical cream RxNorm: 106109 1 Application TOP TID 08/17/2017 No Stop Date Active Voltaren 1 % topical gel RxNorm: 443213 2 Gram(s) TOP TID luiz ly to shoulder and neck 08/17/2017 No Stop Date Active triamcinolone aceton sreekanth 0.025 % topical cream RxNorm: 2538303 1 Application TOP BI D 08/17/2017 08/15/2018 In active levothyroxine 125 mc g tablet RxNorm: 836115 1 Tablet(s) UD 1 pill wed/wed/wed, 1/2 pill //sat/sun take ON AN EMPTY STOMACH 08/05/2017 02/01/2018 Inactive Coumadin 4 mg tablet RxNorm: 551118 1 Tablet(s) PO Wed/07/29/2017 10/13/2017 Inactive warfarin 5 mg tablet RxNorm: 477329 TAKE 1 AND 1/2 TABLETS BY MOUTH ON AND WEDNESDAY. TAKE ONLY 1 TABLET BY MOUTH ALL OTHER DAYS OF THE WEEK 07/12/2017 04/05/2018 In active furosemide 40 mg tablet RxNorm: 783310 Tablet(s) BID TAKE ONE TABLET BY MOUTH D AILY 06/15/2017 07/10/2018 Inactive Voltaren 1 % topical gel RxNorm: 638538 2 Gram(s) TOP TID luiz ly to shoulder and neck 06/15/2017 08/16/2017 Inactive Keflex 500 mg capsule RxNorm: 506310 1 Capsule(s) PO TID 04/01/2017 04/07/2017 Inactive furosemide 40 mg tablet RxNorm: 139885 TAKE ONE TABLET BY MOUTH DAILY 03/18/2017 06/14/2017 In active Claritin-D 12 Hour 5 mg-120 mg tablet,extended release RxNorm: 1261939 1 Tablet(s) PO BID 03/16/2017 05/14/2017 Inactive Lipitor 20 mg tablet RxNorm: 738822 1 Tablet(s) PO daily 02/09/2017 03/10/2017 Inactive lisinopril 2.5 mg ta blet RxNorm: 157077 1 Tablet(s) PO daily 02/09/2017 03/10/2017 Inactive Nasonex 50 mcg/actua tion [place] RxNorm: 4190551 1 [place] NASAL BID 02/09/2017 09/06/2017 Inactive levothyroxine 125 mc g tablet RxNorm: 917159 1 Tablet(s) UD 1 pill wed/wed/wed, 1/2 pill //sat/sun take ON AN EMPTY STOMACH 02/09/2017 08/04/2017 Inactive fluorouracil 5 % top ical cream RxNorm: 888027 1 Application TOP BID 02/09/2017 02/18/2017 Inactive potassium chloride E R 20 mEq tablet,extended release RxNorm: 705992 Tablet(s) TAKE ONE TABLET BY MOUTH DAILY 02/08/2017 02/02/2018 Inactive warfarin 5 mg tablet RxNorm: 041581 TAKE 1 AND 1/2 TABLETS BY MOUTH ON AND WEDNESDAY. TAKE ONLY 1 TABLET BY MOUTH ALL OTHER DAYS OF THE WEEK 12/14/2016 05/30/2017 In active potassium chloride E R 20 mEq tablet,extended release RxNorm: 717522 TAKE ONE TABLET BY MOUTH DAILY 10/29/2016 01/26/2017 Inactive warfarin 5 mg tablet RxNorm: 913352 TAKE 1 AND 1/2 TABLETS BY MOUTH ON AND WEDNESDAY. TAKE ONLY 1 TABLET BY MOUTH ALL OTHER DAYS OF THE WEEK 10/27/2016 12/13/2016 In active nystatin 100,000 uni t/gram topical cream RxNorm: 258945 1 Application TOP TID 10/13/2016 08/16/2017 In active nitrofurantoin 50 mg capsule RxNorm: 571248 1 Capsule(s) PO BID 09/04/2016 09/03/2016 Inactive nitrofurantoin macro crystal 50 mg capsule RxNorm: 408148 1 Capsule(s) PO BID 09/04/2016 09/10/2016 In active Cipro 500 mg tablet RxNorm: 492844 1 Tablet(s) PO BID 08/26/2016 10/12/2016 Inactive Zyrtec 10 mg tablet RxNorm: 9198492 1 Tablet(s) PO daily 07/31/2016 08/29/2016 Inactive prednisone 20 mg tablet RxNorm: 850960 2 Tablet(s) PO daily 07/31/2016 08/02/2016 Inactive Kenalog 40 mg/mL zohra pension for injection RxNorm: 7888436 Milliliter(s) Inj 07/22/2016 07/22/2016 In active ceftriaxone 500 mg s olution for injection RxNorm: 1725098 Inj 07/22/2016 07/22/2016 Inactive Flonase Allergy Reli ef 50 mcg/actuation nasal spray,suspension RxNorm: 3938788 1 [place] NASAL BID 07/22/2016 08/20/2016 Inactive azithromycin 250 mg tablet RxNorm: 080665 2 Tablet(s) PO on day #1, then 1 pill daily x 4 days 07/22/2016 10/12/2016 Inactive warfarin 5 mg tablet RxNorm: 790593 TAKE 1 AND 1/2 TABLETS BY MOUTH ON AND WEDNESDAY. TAKE ONLY 1 TABLET BY MOUTH ALL OTHER DAYS OF THE WEEK 07/09/2016 09/30/2016 In active levothyroxine 125 mc g tablet RxNorm: 577605 Tablet(s) TAKE ONE TA BLET BY MOUTH DAILY ON AN EMPTY STOMACH 06/23/2016 02/08/2017 Inactive levothyroxine 125 mc g tablet RxNorm: 027993 TAKE ONE TABLET BY MO [facility] DAILY ON AN EMPTY STOMACH 06/23/2016 06/22/2016 Inactive levothyroxine 125 mc g tablet RxNorm: 221665 TAKE ONE TABLET BY MO UTH DAILY ON AN EMPTY STOMACH 06/23/2016 08/04/2017 Inactive cetirizine 10 mg tablet RxNorm: 0053243 TAKE ONE TABLET BY MOUTH DAILY 06/16/2016 10/13/2016 In active furosemide 40 mg tablet RxNorm: 235589 Tablet(s) TAKE ONE TABLET BY MOUTH DAILY 06/05/2016 12/01/2016 In active cetirizine 10 mg tablet RxNorm: 5908670 1 Tablet(s) PO daily 05/01/2016 05/30/2016 Inactive Levaquin 250 mg tablet RxNorm: 569994 Tablet(s) PO 2 pills day one and 1 pill day 2-7 04/06/2016 07/21/2016 Inactive warfarin 5 mg tablet RxNorm: 257714 Tablet(s) 1/2 TABLETS BY MOUTH ON AND WEDNESDAY. TAKE ONLY 1 TABLET BY MOUTH ALL OTHER DAYS OF THE WEEK 03/18/2016 07/07/2016 In active triamcinolone aceton sreekanth 0.025 % topical cream RxNorm: 6466572 1 Application TOP BI D 03/10/2016 08/16/2017 In active potassium chloride E R 20 mEq tablet,extended release RxNorm: 877149 1 Tablet(s) PO daily 03/04/2016 06/01/2016 Inactive Levaquin 250 mg tablet RxNorm: 862447 Tablet(s) PO 2 pills day one and 1 pill day 2-7 03/04/2016 04/05/2016 Inactive Levaquin 250 mg tablet RxNorm: 043650 Tablet(s) PO 2 pills day one and 1 pill day 2-7 03/03/2016 03/03/2016 Inactive potassium chloride E R 20 mEq tablet,extended release RxNorm: 937310 1 Tablet(s) PO daily 03/03/2016 03/03/2016 Inactive Cipro 500 mg tablet RxNorm: 067023 1 Tablet(s) PO BID 02/20/2016 07/21/2016 Inactive Cipro 500 mg tablet RxNorm: 769793 1 Tablet(s) PO BID 02/20/2016 02/19/2016 Inactive furosemide 40 mg tablet RxNorm: 623736 TAKE ONE TABLET BY MOUTH DAILY 01/27/2016 01/26/2016 In active warfarin 5 mg tablet RxNorm: 280830 TAKE 1 AND 1/2 TABLETS BY MOUTH ON AND WEDNESDAY. TAKE ONLY 1 TABLET BY MOUTH ALL OTHER DAYS OF THE WEEK 01/27/2016 01/26/2016 In active furosemide 40 mg tablet RxNorm: 783783 TAKE ONE TABLET BY MOUTH DAILY 01/27/2016 06/04/2016 In active warfarin 5 mg tablet RxNorm: 272818 TAKE 1 AND 1/2 TABLETS BY MOUTH ON AND WEDNESDAY. TAKE ONLY 1 TABLET BY MOUTH ALL OTHER DAYS OF THE WEEK 01/27/2016 03/17/2016 In active potassium chloride E R 20 mEq tablet,extended release RxNorm: 440620 1 Tablet(s) PO daily 11/20/2015 03/02/2016 Inactive furosemide 40 mg tablet RxNorm: 630468 TAKE ONE TABLET BY MOUTH DAILY 11/12/2015 01/26/2016 In active Zovirax 5 % topical cream RxNorm: 850059 TOP QID 0 09/24/2015 09/23/2015 Inactive Zovirax 5 % topical cream RxNorm: 605455 TOP QID 0 09/24/2015 11/19/2015 Inactive nystatin 100,000 uni t/gram topical cream RxNorm: 283483 1 Application TOP TID 09/17/2015 10/12/2016 In active warfarin 5 mg tablet RxNorm: 391932 TAKE 1 AND 1/2 TABLETS BY MOUTH ON AND WEDNESDAY. TAKE ONLY 1 TABLET BY MOUTH ALL OTHER DAYS OF THE WEEK 08/19/2015 01/05/2016 In active loratadine 10 mg tablet RxNorm: 168328 1 Tablet(s) PO daily 07/30/2015 07/23/2016 Inactive loratadine 10 mg tablet RxNorm: 176374 1 Tablet(s) PO daily 07/30/2015 07/29/2015 Inactive furosemide 40 mg tablet RxNorm: 934476 TAKE ONE TABLET BY MOUTH DAILY 06/24/2015 11/11/2015 In active levothyroxine 125 mc g tablet RxNorm: 855487 1 Tablet(s) PO daily 05/31/2015 05/24/2016 Inactive furosemide 40 mg tablet RxNorm: 129048 1 Tablet(s) PO daily 04/05/2015 06/23/2015 Inactive warfarin 5 mg tablet RxNorm: 551241 TAKE 1 AND 1/2 TABLETS BY MOUTH ON AND WEDNESDAY. TAKE ONLY 1 TABLET BY MOUTH ALL OTHER DAYS OF THE WEEK 02/12/2015 07/29/2015 In active Flonase Allergy Reli ef 50 mcg/actuation nasal spray,suspension RxNorm: 2 [place] NASAL daily 02/05/2015 03/06/2015 Inactive Kenalog 40 mg/mL zohra pension for injection RxNorm: 9041947 Milliliter(s) Inj 02/05/2015 02/05/2015 In active warfarin 5 mg tablet RxNorm: 321444 Take 7.5mg (1 1/2 tablets) Wednesday and and 1 Tablet(s) PO (5mg) all other days 01/11/2015 02/09/2015 Inactive levothyroxine 125 mc g tablet RxNorm: 289283 1 Tablet(s) PO every other day 01/01/2015 05/30/2015 In active alternate with 150 levothyroxine 150 mc g tablet RxNorm: 128664 1 Tablet(s) PO every other day 01/01/2015 05/30/2015 In active alternate with 125 loratadine 10 mg tablet RxNorm: 040875 Tablet(s) PO as needed No Start Date Active Calcium + D oral RxNorm: 240979 oral No Start Date Active Aspirin Low Dose 81 mg tablet,delayed release RxNorm: 817918 1 Tablet(s) PO daily No Start Date Active Vitamin C oral RxNorm: 1151 oral No Start Date Active Fish Oil 1,000 mg ca psule RxNorm: 1 Capsule(s) PO TID No Start Date Active magnesium 250 mg tablet RxNorm: 1 Tablet(s) PO daily No Start Date Active Vitamin D3 2,000 uni t tablet RxNorm: 110620 2 Tablet(s) PO daily No Start Date Active Fosamax 35 mg tablet RxNorm: 198141 1 Tablet(s) PO QW No Start Date Active levothyroxine 125 mc g tablet RxNorm: 816442 1 Tablet(s) PO daily No Start Date 12/31/2014 Inactive levothyroxine 150 mc g tablet RxNorm: 382831 1 Tablet(s) PO daily No Start Date 12/31/2014 Inactive diltiazem 60 mg tablet RxNorm: 740010 1 Tablet(s) PO QID No Start Date 03/23/2018 Inactive meclizine 25 mg tablet RxNorm: 116350 1 Tablet(s) PO TID as needed Dizziness No Start Date 07/18/2018 Inactive furosemide 40 mg tablet RxNorm: 045595 1 Tablet(s) PO daily No Start Date 04/04/2015 Inactive potassium chloride RxNorm: miscellaneous No Start Date 11/19/2015 Inactive Vitamin D2 oral RxNorm: 4018 oral No Start Date 05/31/2015 Inactive warfarin 5 mg tablet RxNorm: 198624 1 Tablet(s) PO daily No Start Date 01/10/2015 Inactive Coumadin 4 mg tablet RxNorm: 081725 1 Tablet(s) PO Wed/ No Start Date 07/28/2017 Inactive Medication Administered Medication Codes Instruc tions Start Date Status ceftriaxone 500 mg solution for injection RxNorm: 6869372 10/27/2018 No longer A ctive ceftriaxone 500 mg solution for injection RxNorm: 1124682 07/22/2016 No longer A ctive Kenalog 40 mg/mL suspension for injection RxNorm: 3802037 Milliliter 07/22/2016 No longer Active Kenalog 40 mg/mL suspension for injection RxNorm: 2132156 Milliliter 02/05/2015 No longer Active Immunizations Vaccine Codes Date Status Influenza CVX: 141 03/24 completed Pneumococcal (Adult) CVX: 33 03/24/2018 completed Influenza CVX: 141 03/16 completed Pneumococcal (Adult) CVX: 133 03/16/2017 completed Influenza CVX: 141 05/06 completed Influenza CVX: 141 04/28 completed Pneumococcal CVX: 33 06/1999 completed Assessments Condition Codes Effectiv e Dates Dysuria ICD-10: R30.0 ICD-9: 788.1 01/10/2019 Urinary tract infection, site not specified ICD-10: N39.0 ICD-9: 599.0 12/05/2018 detention (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 ICD-10: Z79.01 ICD-9: V58.61 11/17/2018 Contusion of right lower leg, initial encounter ICD-10: S80.11XA ICD-9: 924.4 11/17/2018 Atrophy of thyroid (acquired) ICD-10 : E03.4 ICD-9: 244.8 09/27/2018 Other allergic rhinitis ICD-10: J30. 89 ICD-9: 477.8 09/27/2018 Essential (primary) hypertension ICD -10: I10 ICD-9: 401.9 09/27/2018 Other skin changes ICD-10: R23.8 ICD-9: 782.9 09/27/2018 Chronic atrial fibrillation ICD-10: I48.2 ICD-9: 427.31 09/27/2018 Sebaceous cyst ICD-10: L72.3 ICD-9: 706.2 08/16/2018 Encounter for screening mammogram for ma lignant neoplasm of breast ICD-10: Z12.31 ICD-9: V76.12 07/29/2018 Other fatigue ICD-10: R53.83 ICD-9: 780.79 07/11/2018 Localized edema ICD-10: R60.0 ICD-9: 782.3 07/11/2018 [...] 244.9 11/20/2014 ACTINIC KERATOSIS ICD-9: 702.0 11/20/2014 lobsterman current us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 therapy ICD-9: V58.61 10/19/2014 Reason For Visit Reason For Visit Effective Dates Notes dysuria 01/10/2019 dysuria 12/05/2018 pain, limb 11/17/2018 [...] Code Item Item Code Result Date Pt Beo7288 PT 23.4 seconds 01/31/2019 Pt Hqc1010 INR 2.1 01/31/2019 Pt Fap2984 Low Intensity - 1.5-2.0 01/31/2019 Pt Gfz3030 Mod intensity - 2.0-3.0 01/31/2019 Pt Nua9858 Hi intensity - 3.0-4.0 01/31/2019 Pt Mvg1381 PT 23.6 seconds 01/06/2019 Pt Dje5988 INR 2.2 01/06/2019 Pt Rgo4338 Low Intensity - 1.5-2.0 01/06/2019 Pt Kjp1076 Mod intensity - 2.0-3.0 01/06/2019 Pt Nee3440 Hi intensity - 3.0-4.0 01/06/2019 Pt Sbh1553 PT 23.8 seconds 12/09/2018 Pt Zfh6902 INR 2.2 12/09/2018 Pt Thw3826 Low Intensity - 1.5-2.0 12/09/2018 Pt Grl3655 Mod intensity - 2.0-3.0 12/09/2018 Pt Bmp5125 Hi intensity - 3.0-4.0 12/09/2018 Pt Epf7086 PT 22.3 seconds 11/23/2018 Pt Aiy2786 INR 2.0 11/23/2018 Pt Qvw7270 Low Intensity - 1.5-2.0 11/23/2018 Pt Xcj4369 Mod intensity - 2.0-3.0 11/23/2018 Pt Hma2842 Hi intensity - 3.0-4.0 11/23/2018 Pt Hxn9683 PT 18.0 seconds 11/14/2018 Pt Clg1155 INR 1.5 11/14/2018 Pt Mvr3721 Low Intensity - 1.5-2.0 11/14/2018 Pt Mqi8386 Mod intensity - 2.0-3.0 11/14/2018 Pt Csr6405 Hi intensity - 3.0-4.0 11/14/2018 Pt Rsy3237 PT 17.3 seconds 11/03/2018 Pt Qci3877 INR 1.5 11/03/2018 Pt Phk8743 Low Intensity - 1.5-2.0 11/03/2018 Pt Uvx8611 Mod intensity - 2.0-3.0 11/03/2018 Pt Dyi0881 Hi intensity - 3.0-4.0 11/03/2018 Urine Culture Ucult Comp lete >100,000 col/ml aerobic grow th sent to ref lab 10/28/2018 Pt Gun7594 PT 24.4 seconds 10/24/2018 Pt Olh9382 INR 2.2 10/24/2018 Pt Ckc7220 Low Intensity - 1.5-2.0 10/24/2018 Pt Pgq8398 Mod intensity - 2.0-3.0 10/24/2018 Pt Inm3004 Hi intensity - 3.0-4.0 10/24/2018 Lipid Ord30 CHOL 143 mg/dL 10/24/2018 Lipid Ord30 HDL 52.0 mg/dl 10/24/2018 Lipid Ord30 TRIG 78 mg/dL 10/24/2018 Lipid Ord30 LDL 75 mg/dL 10/24/2018 Lipid Ord30 C/HDL 2.8 Ratio 10/24/2018 Comp Metabolic Ujc600 NA 142 mEq/L 10/24/2018 Comp Metabolic Oib727 K 4.6 mEq/L 10/24/2018 Comp Metabolic Axm702 CL 107 mEq/L 10/24/2018 Comp Metabolic Gtb579 CO2 27.0 mEq/L 10/24/2018 Comp Metabolic Aau898 AN ION GAP 13 10/24/2018 Comp Metabolic Gex671 GL UCOSE 82 mg/dL 10/24/2018 Comp Metabolic Ggv118 Cr eat 1.1 mg/dL 10/24/2018 Comp Metabolic Plw784 eG FR 54 ml/min/1.73m2 10/24 Comp Metabolic Fds826 BUN 23 mg/dL 10/24/2018 Comp Metabolic Ovg097 B/ C Ratio 21.9 Ratio 10/24/2018 Comp Metabolic Dmn241 CA LCIUM 9.0 mg/dL 10/24/2018 Comp Metabolic Lyz502 AL K PHOS 64 U/L 10/24/2018 Comp Metabolic Nsq460 T(SGOT) 18 U/L 10/24/2018 Comp Metabolic Wkd001 AL T(SGPT) 14 U/L 10/24/2018 Comp Metabolic Dzi374 BI LI T 0.5 mg/dL 10/24/2018 Comp Metabolic Tpj259 AL BUMIN 3.0 g/dL 10/24/2018 Comp Metabolic Ybf063 TP RO 5.2 g/dL 10/24/2018 Comp Metabolic Rrg066 GL OB 2.2 g/dL 10/24/2018 Comp Metabolic Yny499 A/ G Ratio 1.4 Ratio 10/24/2018 Comp Metabolic Eqq767 Os mo 286 mOsmo 10/24/2018 Pt Yic3472 PT 23.8 seconds 09/29/2018 Pt Ycv1779 INR 2.2 09/29/2018 Pt Ygr0169 Low Intensity - 1.5-2.0 09/29/2018 Pt Xaj8708 Mod intensity - 2.0-3.0 09/29/2018 Pt Bpo9677 Hi intensity - 3.0-4.0 09/29/2018 Pt Yun4394 PT 19.6 seconds 09/19/2018 Pt Wmt7307 INR 1.7 09/19/2018 Pt Fer5475 Low Intensity - 1.5-2.0 09/19/2018 Pt Lww5420 Mod intensity - 2.0-3.0 09/19/2018 Pt Mmv4466 Hi intensity - 3.0-4.0 09/19/2018 Pt Wut0503 PT 16.8 seconds 09/12/2018 Pt Wtt1854 INR 1.4 09/12/2018 Pt Ytv3982 Low Intensity - 1.5-2.0 09/12/2018 Pt Wev8965 Mod intensity - 2.0-3.0 09/12/2018 Pt Igc5276 Hi intensity - 3.0-4.0 09/12/2018 Pt Mle7558 PT 13.1 seconds 09/07/2018 Pt Yvt5327 INR 1.0 09/07/2018 Pt Dbr1509 Low Intensity - 1.5-2.0 09/07/2018 Pt Ove8461 Mod intensity - 2.0-3.0 09/07/2018 Pt Btz5022 Hi intensity - 3.0-4.0 09/07/2018 Pt Shh2688 PT 24.1 seconds 08/23/2018 Pt Jku4747 INR 2.2 08/23/2018 Pt Flu8353 Low Intensity - 1.5-2.0 08/23/2018 Pt Aav8488 Mod intensity - 2.0-3.0 08/23/2018 Pt Tuv0286 Hi intensity - 3.0-4.0 08/23/2018 Pt Vqg2109 PT 30.9 seconds 08/16/2018 Pt Lgu5612 INR 3.0 08/16/2018 Pt Uuk3278 Low Intensity - 1.5-2.0 08/16/2018 Pt Fgn0407 Mod intensity - 2.0-3.0 08/16/2018 Pt Nqn1762 Hi intensity - 3.0-4.0 08/16/2018 Pt Nrv0849 PT 29.5 seconds 08/01/2018 Pt Ggd0669 INR 2.8 08/01/2018 Pt Ddl9670 Low Intensity - 1.5-2.0 08/01/2018 Pt Ijt5080 Mod intensity - 2.0-3.0 08/01/2018 Pt Zbv1764 Hi intensity - 3.0-4.0 08/01/2018 Pt Vjm4495 PT 24.2 seconds 07/25/2018 Pt Zva8623 INR 2.2 07/25/2018 Pt Wap6697 Low Intensity - 1.5-2.0 07/25/2018 Pt Mny1535 Mod intensity - 2.0-3.0 07/25/2018 Pt Paa5959 Hi intensity - 3.0-4.0 07/25/2018 Pt Wud1949 PT 38.6 seconds 07/19/2018 Pt Chu5167 INR 4.0 07/19/2018 Pt Doi2707 Low Intensity - 1.5-2.0 07/19/2018 Pt Rle1614 Mod intensity - 2.0-3.0 07/19/2018 Pt Syv0126 Hi intensity - 3.0-4.0 07/19/2018 Pt Ofu9075 PT 25.7 seconds 07/11/2018 Pt Dpz3141 INR 2.4 07/11/2018 Pt Ewj0112 Low Intensity - 1.5-2.0 07/11/2018 Pt Nna5574 Mod intensity - 2.0-3.0 07/11/2018 Pt Nvh9301 Hi intensity - 3.0-4.0 07/11/2018 Pt Xou4024 PT 18.5 seconds 07/08/2018 Pt Xyx3118 INR 1.6 07/08/2018 Pt Mpl4853 Low Intensity - 1.5-2.0 07/08/2018 Pt Kfe9474 Mod intensity - 2.0-3.0 07/08/2018 Pt Eul1614 Hi intensity - 3.0-4.0 07/08/2018 Pt Blo3035 PT 27.3 seconds 06/29/2018 Pt Nud8936 INR 2.6 06/29/2018 Pt Tyc0320 Low Intensity - 1.5-2.0 06/29/2018 Pt Wqi0068 Mod intensity - 2.0-3.0 06/29/2018 Pt Xdi3959 Hi intensity - 3.0-4.0 06/29/2018 Pt Nrg8850 PT 24.0 seconds 05/26/2018 Pt Pzw6856 INR 2.2 05/26/2018 Pt Lrs3922 Low Intensity - 1.5-2.0 05/26/2018 Pt Yjb4993 Mod intensity - 2.0-3.0 05/26/2018 Pt Zic0886 Hi intensity - 3.0-4.0 05/26/2018 Tsh Ord6 [...] 29.6 pg 03/25/2018 Cbc With Differential Ord2 [place]% 9.5 % 03/25/2018 Cbc With Differential Ord2 [...] 2.19 K/ul 03/25/2018 Cbc With Differential Ord2 [place] ABS# 0.8 K/ul 03/25/2018 Cbc With Differential Ord2 Eos ABS# 0.3 K/ul 03/25/2018 Cbc With Differential Ord2 Baso ABS# 0.0 K/ul 03/25/2018 Lipid Ord30 CHOL 156 mg/dL 03/25/2018 Lipid Ord30 HDL 52.0 mg/dl 03/25/2018 Lipid Ord30 TRIG 98 mg/dL 03/25/2018 Lipid Ord30 LDL 84 mg/dL 03/25/2018 Lipid Ord30 C/HDL 3.0 Ratio 03/25/2018 Free T4 Nnz995 FREE T4 1.73 ng/dL 03/25/2018 Comp Metabolic Yjd058 NA 143 mEq/L 03/25/2018 Comp Metabolic Rwm805 K 4.6 mEq/L 03/25/2018 Comp Metabolic Ehi825 CL 108 mEq/L 03/25/2018 Comp Metabolic Ygh679 CO2 26.0 mEq/L 03/25/2018 Comp Metabolic Gyk560 AN ION GAP 14 03/25/2018 Comp Metabolic Amg940 GL UCOSE 87 mg/dL 03/25/2018 Comp Metabolic Law921 Cr eat 1.2 mg/dL 03/25/2018 Comp Metabolic Rwo364 eG FR 48 ml/min/1.73m2 03/25 Comp Metabolic Ivi667 BUN 18 mg/dL 03/25/2018 Comp Metabolic Adq781 B/ C Ratio 15.5 Ratio 03/25/2018 Comp Metabolic Ixp322 CA LCIUM 9.1 mg/dL 03/25/2018 Comp Metabolic Mxc893 AL K PHOS 58 U/L 03/25/2018 Comp Metabolic Ifi939 T(SGOT) 21 U/L 03/25/2018 Comp Metabolic Qds110 AL T(SGPT) 13 U/L 03/25/2018 Comp Metabolic Pmn977 BI LI T 0.7 mg/dL 03/25/2018 Comp Metabolic Bfr611 AL BUMIN 3.2 g/dL 03/25/2018 Comp Metabolic Qrm053 TP RO 5.5 g/dL 03/25/2018 Comp Metabolic Hfk320 GL OB 2.3 g/dL 03/25/2018 Comp Metabolic Fbg834 A/ G Ratio 1.4 Ratio 03/25/2018 Comp Metabolic Grs304 Os mo 286 mOsmo 03/25/2018 Pt Axw0001 PT 29.0 seconds 03/22/2018 Pt Skf8487 INR 2.7 03/22/2018 Pt Ubf5518 Low Intensity - 1.5-2.0 03/22/2018 Pt Fps5599 Mod intensity - 2.0-3.0 03/22/2018 Pt Izh1582 Hi intensity - 3.0-4.0 03/22/2018 Pt Mgk4027 PT 27.1 seconds 02/25/2018 Pt Tjg1650 INR 2.5 02/25/2018 Pt Cxd0255 Low Intensity - 1.5-2.0 02/25/2018 Pt Kar1014 Mod intensity - 2.0-3.0 02/25/2018 Pt Ybk1761 Hi intensity - 3.0-4.0 02/25/2018 Pt Fkg2904 PT 26.1 seconds 01/26/2018 Pt Ork6154 INR 2.4 01/26/2018 Pt Ujv7257 Low Intensity - 1.5-2.0 01/26/2018 Pt Nkv1087 Mod intensity - 2.0-3.0 01/26/2018 Pt Liz2767 Hi intensity - 3.0-4.0 01/26/2018 Pt Onq2135 PT 22.8 seconds 12/24/2017 Pt Cqq3082 INR 2.0 12/24/2017 Pt Vss8767 Low Intensity - 1.5-2.0 12/24/2017 Pt Pfc4108 Mod intensity - 2.0-3.0 12/24/2017 Pt Yoo9277 Hi intensity - 3.0-4.0 12/24/2017 Pt Ert2614 PT 29.4 seconds 11/18/2017 Pt Lex4619 INR 2.8 11/18/2017 Pt Ghc9973 Low Intensity - 1.5-2.0 11/18/2017 Pt Jkc5852 Mod intensity - 2.0-3.0 11/18/2017 Pt Qte0725 Hi intensity - 3.0-4.0 11/18/2017 Pt Fzr9232 PT 26.6 seconds 09/13/2017 Pt Enx9223 INR 2.4 09/13/2017 Pt Udf1031 Low Intensity - 1.5-2.0 09/13/2017 Pt Fjw0403 Mod intensity - 2.0-3.0 09/13/2017 Pt Wjh9284 Hi intensity - 3.0-4.0 09/13/2017 Pt Tri9249 PT 28.2 seconds 08/10/2017 Pt Wke6478 INR 2.6 08/10/2017 Pt Rrq3878 Low Intensity - 1.5-2.0 08/10/2017 Pt Gdt4827 Mod intensity - 2.0-3.0 08/10/2017 Pt Pjq3050 Hi intensity - 3.0-4.0 08/10/2017 Pt Bvd2084 PT 33.9 seconds 07/27/2017 Pt Xsw0156 INR 3.3 07/27/2017 Pt Wno8354 Low Intensity - 1.5-2.0 07/27/2017 Pt Mqe7460 Mod intensity - 2.0-3.0 07/27/2017 Pt Kij9321 Hi intensity - 3.0-4.0 07/27/2017 Pt Epl6423 PT 29.1 seconds 06/29/2017 Pt Fif5145 INR 2.7 06/29/2017 Pt Dri3030 Low Intensity - 1.5-2.0 06/29/2017 Pt Fru4825 Mod intensity - 2.0-3.0 06/29/2017 Pt Xzz4318 Hi intensity - 3.0-4.0 06/29/2017 Pt Hgm7517 PT 30.3 seconds 06/11/2017 Pt Fwz8551 INR 2.9 06/11/2017 Pt Xoz7165 Low Intensity - 1.5-2.0 06/11/2017 Pt Gbr4152 Mod intensity - 2.0-3.0 06/11/2017 Pt Pbw1430 Hi intensity - 3.0-4.0 06/11/2017 Pt Ksh2545 PT 39.1 seconds 06/07/2017 Pt Mdm0963 INR 3.9 06/07/2017 Pt Fks4981 Low Intensity - 1.5-2.0 06/07/2017 Pt Aum1950 Mod intensity - 2.0-3.0 06/07/2017 Pt Ibz3603 Hi intensity - 3.0-4.0 06/07/2017 Pt Icw8804 PT 34.2 seconds 05/26/2017 Pt Mnf1148 INR 3.3 05/26/2017 Pt Dxv5329 Low Intensity - 1.5-2.0 05/26/2017 Pt Myh0473 Mod intensity - 2.0-3.0 05/26/2017 Pt Njs1064 Hi intensity - 3.0-4.0 05/26/2017 Comp Metabolic Pux392 NA 138 mEq/L 04/23/2017 Comp Metabolic Pzg131 K 4.2 mEq/L 04/23/2017 Comp Metabolic Dcj701 CL 101 mEq/L 04/23/2017 Comp Metabolic Zvm597 CO2 28.0 mEq/L 04/23/2017 Comp Metabolic Xbw890 AN ION GAP 13 04/23/2017 Comp Metabolic Lkp626 GL UCOSE 89 mg/dL 04/23/2017 Comp Metabolic Fwd773 Cr eat 1.1 mg/dL 04/23/2017 Comp Metabolic Jrw501 eG FR 51 ml/min/1.73m2 04/23 Comp Metabolic Crk980 BUN 26 mg/dL 04/23/2017 Comp Metabolic Dim819 B/ C Ratio 23.9 Ratio 04/23/2017 Comp Metabolic Iuj700 CA LCIUM 9.4 mg/dL 04/23/2017 Comp Metabolic Jyw547 AL K PHOS 95 U/L 04/23/2017 Comp Metabolic Yvk839 T(SGOT) 18 U/L 04/23/2017 Comp Metabolic Thk344 AL T(SGPT) 17 U/L 04/23/2017 Comp Metabolic Yft236 BI LI T 0.7 mg/dL 04/23/2017 Comp Metabolic Qkj849 AL BUMIN 3.2 g/dL 04/23/2017 Comp Metabolic Ljk702 TP RO 5.6 g/dL 04/23/2017 Comp Metabolic Xtd521 GL OB 2.4 g/dL 04/23/2017 Comp Metabolic Fxq423 A/ G Ratio 1.3 Ratio 04/23/2017 Comp Metabolic Tfg899 Os mo 280 mOsmo 04/23/2017 Pt Sdj3385 PT 28.6 seconds 04/23/2017 Pt Cqn3192 INR 2.7 04/23/2017 Pt Xoi1425 Low Intensity - 1.5-2.0 04/23/2017 Pt Iec5065 Mod intensity - 2.0-3.0 04/23/2017 Pt Qwz2421 Hi intensity - 3.0-4.0 04/23/2017 Pt Rsw8843 PT 24.4 seconds 03/16/2017 Pt Ibd3880 INR 2.2 03/16/2017 Pt Pfp9533 Low Intensity - 1.5-2.0 03/16/2017 Pt Nft6891 Mod intensity - 2.0-3.0 03/16/2017 Pt Oww2073 Hi intensity - 3.0-4.0 03/16/2017 Pt Bxy1796 PT 28.2 seconds 02/24/2017 Pt Nbh0236 INR 2.6 02/24/2017 Pt Baj4994 Low Intensity - 1.5-2.0 02/24/2017 Pt Ico8604 Mod intensity - 2.0-3.0 02/24/2017 Pt Yim4017 Hi intensity - 3.0-4.0 02/24/2017 Pt Ukr9602 PT 26.8 seconds 02/08/2017 Pt Dot7963 INR 2.5 02/08/2017 Pt Ueq5652 Low Intensity - 1.5-2.0 02/08/2017 Pt Caq6335 Mod intensity - 2.0-3.0 02/08/2017 Pt Myw6380 Hi intensity - 3.0-4.0 02/08/2017 Lipid Ord30 CHOL 150 mg/dL 01/25/2017 Lipid Ord30 HDL 55.0 mg/dl 01/25/2017 Lipid Ord30 TRIG 66 mg/dL 01/25/2017 Lipid Ord30 LDL 82 mg/dL 01/25/2017 Lipid Ord30 C/HDL 2.7 Ratio 01/25/2017 Pt Woi5718 PT 29.9 seconds 01/25/2017 Pt Ewg3331 INR 2.8 01/25/2017 Pt Dmn0575 Low Intensity - 1.5-2.0 01/25/2017 Pt Ney8456 Mod intensity - 2.0-3.0 01/25/2017 Pt Dut5572 Hi intensity - 3.0-4.0 01/25/2017 Comp Metabolic Yne404 NA 143 mEq/L 01/25/2017 Comp Metabolic Kmw254 K 3.9 mEq/L 01/25/2017 Comp Metabolic Lse829 CL 108 mEq/L 01/25/2017 Comp Metabolic Vqc696 CO2 23.0 mEq/L 01/25/2017 Comp Metabolic Xaw094 AN ION GAP 16 01/25/2017 Comp Metabolic Gjq542 GL UCOSE 80 mg/dL 01/25/2017 Comp Metabolic Vyu849 Cr eat 1.0 mg/dL 01/25/2017 Comp Metabolic Smx062 eG FR 57 ml/min/1.73m2 01/25 Comp Metabolic Bsq889 BUN 25 mg/dL 01/25/2017 Comp Metabolic Uvh203 B/ C Ratio 25.0 Ratio 01/25/2017 Comp Metabolic Rhh602 CA LCIUM 8.5 mg/dL 01/25/2017 Comp Metabolic Ucs909 AL K PHOS 81 U/L 01/25/2017 Comp Metabolic Zmu485 T(SGOT) 19 U/L 01/25/2017 Comp Metabolic Dqa404 AL T(SGPT) 23 U/L 01/25/2017 Comp Metabolic Ejw090 BI LI T 0.5 mg/dL 01/25/2017 Comp Metabolic Mso119 AL BUMIN 2.9 g/dL 01/25/2017 Comp Metabolic Mil782 TP RO 5.1 g/dL 01/25/2017 Comp Metabolic Chp414 GL OB 2.2 g/dL 01/25/2017 Comp Metabolic Flu434 A/ G Ratio 1.3 Ratio 01/25/2017 Comp Metabolic Ghd614 Os mo 288 mOsmo 01/25/2017 Cbc With [...] 30.7 pg 01/25/2017 Cbc With Differential Ord2 [place]% 8.2 % 01/25/2017 Cbc With Differential Ord2 [...] 3.10 K/ul 01/25/2017 Cbc With Differential Ord2 [place] ABS# 0.8 K/ul 01/25/2017 Cbc With Differential Ord2 Eos ABS# 0.4 K/ul 01/25/2017 Cbc With Differential Ord2 Baso ABS# 0.1 K/ul 01/25/2017 Free T4 Ygm175 FREE T4 2.09 ng/dL 01/25/2017 Tsh Ord6 hTSH II 0.46 uIU/mL 01/25/2017 Pt Bfs8313 PT 26.1 seconds 11/26/2016 Pt Iyq9878 INR 2.6 11/26/2016 Pt Mlb9162 Low Intensity - 1.5-2.0 11/26/2016 Pt Wly8015 Mod intensity - 2.0-3.0 11/26/2016 Pt Mcr2081 Hi intensity - 3.0-4.0 11/26/2016 Pt Zlx7557 PT 26.2 seconds 10/29/2016 Pt Xcm4645 INR 2.6 10/29/2016 Pt Uai0874 Low Intensity - 1.5-2.0 10/29/2016 Pt Giy3052 Mod intensity - 2.0-3.0 10/29/2016 Pt Jhg2997 Hi intensity - 3.0-4.0 10/29/2016 Pt Ksz7157 PT 20.8 seconds 10/13/2016 Pt Zlh6852 INR 1.9 10/13/2016 Pt Opo4381 Low Intensity - 1.5-2.0 10/13/2016 Pt Uxm8386 Mod intensity - 2.0-3.0 10/13/2016 Pt Yzp0431 Hi intensity - 3.0-4.0 10/13/2016 Pt Ymm8058 PT 26.5 seconds 10/01/2016 Pt Dnn6034 INR 2.6 10/01/2016 Pt Xyr9553 Low Intensity - 1.5-2.0 10/01/2016 Pt Cmu9699 Mod intensity - 2.0-3.0 10/01/2016 Pt Fel4476 Hi intensity - 3.0-4.0 10/01/2016 Pt Pds0002 PT 24.6 seconds 09/14/2016 Pt Gua0981 INR 2.4 09/14/2016 Pt Dim5232 Low Intensity - 1.5-2.0 09/14/2016 Pt Zdb3943 Mod intensity - 2.0-3.0 09/14/2016 Pt Fsr8788 Hi intensity - 3.0-4.0 09/14/2016 Pt Wbh7848 PT 18.0 seconds 09/07/2016 Pt Edn0120 INR 1.6 09/07/2016 Pt Uqf0921 Low Intensity - 1.5-2.0 09/07/2016 Pt Nzt6908 Mod intensity - 2.0-3.0 09/07/2016 Pt Tyl9162 Hi intensity - 3.0-4.0 09/07/2016 Pt Ggw9457 PT 23.7 seconds 08/12/2016 Pt Wdo0504 INR 2.2 08/12/2016 Pt Hfw2309 Low Intensity - 1.5-2.0 08/12/2016 Pt Arn0365 Mod intensity - 2.0-3.0 08/12/2016 Pt Koz8718 Hi intensity - 3.0-4.0 08/12/2016 Pt Vib9964 PT 21.6 seconds 07/27/2016 Pt Juv6262 INR 2.0 07/27/2016 Pt Brv4526 Low Intensity - 1.5-2.0 07/27/2016 Pt Ogh9169 Mod intensity - 2.0-3.0 07/27/2016 Pt Sst5578 Hi intensity - 3.0-4.0 07/27/2016 Pt Bjc7040 PT 26.0 seconds 06/15/2016 Pt Axh9779 INR 2.5 06/15/2016 Pt Mni4674 Low Intensity - 1.5-2.0 06/15/2016 Pt Qkg0565 Mod intensity - 2.0-3.0 06/15/2016 Pt Tpb1602 Hi intensity - 3.0-4.0 06/15/2016 Pt Soy6448 PT 18.8 seconds 06/01/2016 Pt Gkr6915 INR 1.7 06/01/2016 Pt Fxy7603 Low Intensity - 1.5-2.0 06/01/2016 Pt Ird4317 Mod intensity - 2.0-3.0 06/01/2016 Pt Mpx8982 Hi intensity - 3.0-4.0 06/01/2016 Pt Vyz2507 PT 20.8 seconds 05/12/2016 Pt Bqa2482 INR 1.9 05/12/2016 Pt Krl7932 Low Intensity - 1.5-2.0 05/12/2016 Pt Xyy9083 Mod intensity - 2.0-3.0 05/12/2016 Pt Nyb8877 Hi intensity - 3.0-4.0 05/12/2016 Pt Nyy4622 PT 24.5 seconds 04/10/2016 Pt Jap5269 INR 2.4 04/10/2016 Pt Cxg6257 Low Intensity - 1.5-2.0 04/10/2016 Pt Fuw6689 Mod intensity - 2.0-3.0 04/10/2016 Pt Ivb6321 Hi intensity - 3.0-4.0 04/10/2016 Pt Tpw9483 PT 26.4 seconds 03/10/2016 Pt Jbq8236 INR 2.6 03/10/2016 Pt Non1994 Low Intensity - 1.5-2.0 03/10/2016 Pt Cps2684 Mod intensity - 2.0-3.0 03/10/2016 Pt Stn9486 Hi intensity - 3.0-4.0 03/10/2016 Pt Rhf9293 PT 24.9 seconds 03/06/2016 Pt Unq9394 INR 2.4 03/06/2016 Pt Uac3607 Low Intensity - 1.5-2.0 03/06/2016 Pt Czz7839 Mod intensity - 2.0-3.0 03/06/2016 Pt Qzl0579 Hi intensity - 3.0-4.0 03/06/2016 Pt Eiu9043 PT 21.9 seconds 02/25/2016 Pt Wap9539 INR 2.0 02/25/2016 Pt Hgv0555 Low Intensity - 1.5-2.0 02/25/2016 Pt Wki9471 Mod intensity - 2.0-3.0 02/25/2016 Pt Ejy2211 Hi intensity - 3.0-4.0 02/25/2016 Pt Ulb8867 PT 21.8 seconds 02/21/2016 Pt Vrm1123 INR 2.0 02/21/2016 Pt Fqg6820 Low Intensity - 1.5-2.0 02/21/2016 Pt Akk1850 Mod intensity - 2.0-3.0 02/21/2016 Pt Rcv9090 Hi intensity - 3.0-4.0 02/21/2016 Culture Urine [id number] URI NE CULTURE SEE NOTES 02/20/2016 Culture Urine [id number] Con tinued Results 02/20/2016 Urine Culture Ucult [...] 29.2 pg 02/14/2016 Cbc With Differential Ord2 [place]% 9.3 % 02/14/2016 Cbc With Differential Ord2 [...] 2.55 K/ul 02/14/2016 Cbc With Differential Ord2 [place] ABS# 0.8 K/ul 02/14/2016 Cbc With Differential Ord2 Eos ABS# 0.4 K/ul 02/14/2016 Cbc With Differential Ord2 Baso ABS# 0.1 K/ul 02/14/2016 Tsh Ord6 hTSH II 0.80 uIU/mL 02/14/2016 Pt Eua7905 PT 27.1 seconds 02/14/2016 Pt Yfj0615 INR 2.7 02/14/2016 Pt Erj3006 Low Intensity - 1.5-2.0 02/14/2016 Pt Owm0092 Mod intensity - 2.0-3.0 02/14/2016 Pt Oou2917 Hi intensity - 3.0-4.0 02/14/2016 Free T4 Qib296 FREE T4 1.87 ng/dL 02/14/2016 Comp Metabolic Hjr658 NA 139 mEq/L 02/14/2016 Comp Metabolic Bkj413 K 3.8 mEq/L 02/14/2016 Comp Metabolic Qqz297 CL 103 mEq/L 02/14/2016 Comp Metabolic Nwg122 CO2 27.0 mEq/L 02/14/2016 Comp Metabolic Uot787 AN ION GAP 13 02/14/2016 Comp Metabolic Qwc595 GL UCOSE 91 mg/dL 02/14/2016 Comp Metabolic Jxo581 Cr eat 1.0 mg/dL 02/14/2016 Comp Metabolic Dpj959 eG FR 58 ml/min/1.73m2 02/13 Comp Metabolic Prw609 BUN 16 mg/dL 02/14/2016 Comp Metabolic Nss431 B/ C Ratio 16.2 Ratio 02/14/2016 Comp Metabolic Ibc105 CA LCIUM 9.0 mg/dL 02/14/2016 Comp Metabolic Kig379 AL K PHOS 88 U/L 02/14/2016 Comp Metabolic Osn289 T(SGOT) 17 U/L 02/14/2016 Comp Metabolic Esu758 AL T(SGPT) 12 U/L 02/14/2016 Comp Metabolic Kdq826 BI LI T 0.6 mg/dL 02/14/2016 Comp Metabolic Xdc266 AL BUMIN 3.2 g/dL 02/14/2016 Comp Metabolic Gfa620 TP RO 5.8 g/dL 02/14/2016 Comp Metabolic Agi426 GL OB 2.6 g/dL 02/14/2016 Comp Metabolic Mib394 A/ G Ratio 1.3 Ratio 02/14/2016 Comp Metabolic Vjg451 Os mo 278 mOsmo 02/14/2016 Pt Pdo0097 PT 34.6 seconds 02/06/2016 Pt Ecf1495 INR 3.7 02/06/2016 Pt Nhr1639 Low Intensity - 1.5-2.0 02/06/2016 Pt Wwl0074 Mod intensity - 2.0-3.0 02/06/2016 Pt Oea4917 Hi intensity - 3.0-4.0 02/06/2016 Pt Lbq0249 PT 33.3 seconds 01/23/2016 Pt Rti7950 INR 3.5 01/23/2016 Pt Rcc9189 Low Intensity - 1.5-2.0 01/23/2016 Pt Zjv4151 Mod intensity - 2.0-3.0 01/23/2016 Pt Cjt6525 Hi intensity - 3.0-4.0 01/23/2016 Pt Rzm3464 PT 30.5 seconds 12/31/2015 Pt Sqi8320 INR 3.2 12/31/2015 Pt Fce3825 Low Intensity - 1.5-2.0 12/31/2015 Pt Jwq1788 Mod intensity - 2.0-3.0 12/31/2015 Pt Pwo7706 Hi intensity - 3.0-4.0 12/31/2015 Pt Ssv1829 PT 35.6 seconds 12/25/2015 Pt Iqp5939 INR 3.9 12/25/2015 Pt Sdd6963 Low Intensity - 1.5-2.0 12/25/2015 Pt Xgp3541 Mod intensity - 2.0-3.0 12/25/2015 Pt Tqm6507 Hi intensity - 3.0-4.0 12/25/2015 Pt Xny5636 PT 30.8 seconds 11/21/2015 Pt Dtd5617 INR 3.2 11/21/2015 Pt Xza9489 Low Intensity - 1.5-2.0 11/21/2015 Pt Osn9895 Mod intensity - 2.0-3.0 11/21/2015 Pt Ydq7470 Hi intensity - 3.0-4.0 11/21/2015 Uric Acid [...] 30.0 pg 11/20/2015 Cbc With Differential Ord2 [place]% 8.1 % 11/20/2015 Cbc With Differential Ord2 [...] 2.51 K/ul 11/20/2015 Cbc With Differential Ord2 [place] ABS# 0.9 K/ul 11/20/2015 Cbc With Differential Ord2 Eos ABS# 0.3 K/ul 11/20/2015 Cbc With Differential Ord2 Baso ABS# 0.0 K/ul 11/20/2015 Comp Metabolic Jxq716 NA 137 mEq/L 10/22/2015 Comp Metabolic Btu703 K 3.9 mEq/L 10/22/2015 Comp Metabolic Aar321 CL 100 mEq/L 10/22/2015 Comp Metabolic Cyd888 CO2 31.0 mEq/L 10/22/2015 Comp Metabolic Tmh124 AN ION GAP 10 10/22/2015 Comp Metabolic Eqd045 GL UCOSE 94 mg/dL 10/22/2015 Comp Metabolic Iie756 Cr eat 1.0 mg/dL 10/22/2015 Comp Metabolic Szx442 eG FR 55 ml/min/1.73m2 10/21 Comp Metabolic Jsb051 BUN 19 mg/dL 10/22/2015 Comp Metabolic Bxa828 B/ C Ratio 18.3 Ratio 10/22/2015 Comp Metabolic Rbs134 CA LCIUM 8.8 mg/dL 10/22/2015 Comp Metabolic Fae645 AL K PHOS 83 U/L 10/22/2015 Comp Metabolic Hsp274 T(SGOT) 15 U/L 10/22/2015 Comp Metabolic Qst762 AL T(SGPT) 13 U/L 10/22/2015 Comp Metabolic Exl934 BI LI T 0.9 mg/dL 10/22/2015 Comp Metabolic Mdd587 AL BUMIN 2.8 g/dL 10/22/2015 Comp Metabolic Bnz922 TP RO 5.4 g/dL 10/22/2015 Comp Metabolic Tud885 GL OB 2.6 g/dL 10/22/2015 Comp Metabolic Dyi217 A/ G Ratio 1.1 Ratio 10/22/2015 Comp Metabolic Tox565 Os mo 276 mOsmo 10/22/2015 Bili D Ord93 BILI D 0.1 mg/dL 10/22/2015 Bili D Ord93 BILI I 0.8 mg/dL 10/22/2015 Pt Tny0581 PT 22.8 seconds 10/22/2015 Pt Fve6265 INR 2.1 10/22/2015 Pt Wkg4509 Low Intensity - 1.5-2.0 10/22/2015 Pt Qxw6722 Mod intensity - 2.0-3.0 10/22/2015 Pt Xxf1088 Hi intensity - 3.0-4.0 10/22/2015 Pt Uww0586 PT 28.0 seconds 09/16/2015 Pt Wmp2992 INR 2.7 09/16/2015 Pt Pvl7819 Low Intensity - 1.5-2.0 09/16/2015 Pt Cuf8986 Mod intensity - 2.0-3.0 09/16/2015 Pt Ciw6675 Hi intensity - 3.0-4.0 09/16/2015 Tsh Ord6 hTSH II 1.40 uIU/mL 09/16/2015 Free T4 Ilw100 FREE T4 1.73 ng/dL 09/16/2015 Lipid Ord30 CHOL 169 mg/dL 09/16/2015 Lipid Ord30 HDL 66.0 mg/dl 09/16/2015 Lipid Ord30 TRIG 78 mg/dL 09/16/2015 Lipid Ord30 LDL 87 mg/dL 09/16/2015 Lipid Ord30 C/HDL 2.6 Ratio 09/16/2015 Pt Iyf2427 PT 26.6 seconds 08/21/2015 Pt Pir8537 INR 2.6 08/21/2015 Pt Ykt9216 Low Intensity - 1.5-2.0 08/21/2015 Pt Ryu9507 Mod intensity - 2.0-3.0 08/21/2015 Pt Rsd9168 Hi intensity - 3.0-4.0 08/21/2015 Comp Metabolic Qls472 NA 141 mEq/L 08/08/2015 Comp Metabolic Vrm446 K 3.3 mEq/L 08/08/2015 Comp Metabolic Tdk653 CL 102 mEq/L 08/08/2015 Comp Metabolic Gmz086 CO2 31.0 mEq/L 08/08/2015 Comp Metabolic Cys885 AN ION GAP 11 08/08/2015 Comp Metabolic Qaq664 GL UCOSE 83 mg/dL 08/08/2015 Comp Metabolic Hog257 Cr eat 1.0 mg/dL 08/08/2015 Comp Metabolic Cwh519 eG FR 55 ml/min/1.73m2 08/08 Comp Metabolic Pju227 BUN 19 mg/dL 08/08/2015 Comp Metabolic Hgo369 B/ C Ratio 18.3 Ratio 08/08/2015 Comp Metabolic Orb759 CA LCIUM 8.9 mg/dL 08/08/2015 Comp Metabolic Yqj275 AL K PHOS 84 U/L 08/08/2015 Comp Metabolic Hhm466 T(SGOT) 20 U/L 08/08/2015 Comp Metabolic Sbr603 AL T(SGPT) 18 U/L 08/08/2015 Comp Metabolic Fbx939 BI LI T 0.6 mg/dL 08/08/2015 Comp Metabolic Plj734 AL BUMIN 3.3 g/dL 08/08/2015 Comp Metabolic Muw821 TP RO 5.9 g/dL 08/08/2015 Comp Metabolic Bsm840 GL OB 2.6 g/dL 08/08/2015 Comp Metabolic Any338 A/ G Ratio 1.3 Ratio 08/08/2015 Comp Metabolic Gnk019 Os mo 283 mOsmo 08/08/2015 Cbc With [...] 30.0 pg 08/08/2015 Cbc With Differential Ord2 [place]% 8.2 % 08/08/2015 Cbc With Differential Ord2 [...] 2.90 K/ul 08/08/2015 Cbc With Differential Ord2 [place] ABS# 0.9 K/ul 08/08/2015 Cbc With Differential [...] Ord93 BILI I 0.5 mg/dL 08/08/2015 Pt Sbu3249 PT 31.8 seconds 08/05/2015 Pt Wzz7603 INR 3.2 08/05/2015 Pt Qkc2914 Low Intensity - 1.5-2.0 08/05/2015 Pt Yns3629 Mod intensity - 2.0-3.0 08/05/2015 Pt Abm6070 Hi intensity - 3.0-4.0 08/05/2015 Pt Ath5248 PT 27.4 seconds 06/27/2015 Pt Jls5606 INR 2.6 06/27/2015 Pt Xdx5182 Low Intensity - 1.5-2.0 06/27/2015 Pt Sef7364 Mod intensity - 2.0-3.0 06/27/2015 Pt Eiu6860 Hi intensity - 3.0-4.0 06/27/2015 Tsh Ord6 [...] Ord2 RDW 15.1 % 05/31/2015 Free T4 Smy271 FREE T4 1.89 ng/dL 05/31/2015 Comp Metabolic Wel394 NA 140 mEq/L 05/31/2015 Comp Metabolic Yoz688 K 3.3 mEq/L 05/31/2015 Comp Metabolic Lda088 CL 99 mEq/L 05/31/2015 Comp Metabolic Ogn832 CO2 30.0 mEq/L 05/31/2015 Comp Metabolic Xcc362 AN ION GAP 14 05/31/2015 Comp Metabolic Jjv446 GL UCOSE 70 mg/dL 05/31/2015 Comp Metabolic Bdc758 Cr eat 1.0 mg/dL 05/31/2015 Comp Metabolic Ilk634 eG FR 55 ml/min/1.73m2 05/31 Comp Metabolic Asl767 BUN 23 mg/dL 05/31/2015 Comp Metabolic Dkb078 B/ C Ratio 22.1 Ratio 05/31/2015 Comp Metabolic Tbe975 CA LCIUM 8.9 mg/dL 05/31/2015 Comp Metabolic Kgw551 AL K PHOS 86 U/L 05/31/2015 Comp Metabolic Qsw428 T(SGOT) 28 U/L 05/31/2015 Comp Metabolic Frx157 AL T(SGPT) 30 U/L 05/31/2015 Comp Metabolic Vut509 BI LI T 0.4 mg/dL 05/31/2015 Comp Metabolic Lrm636 AL BUMIN 3.3 g/dL 05/31/2015 Comp Metabolic Evx725 TP RO 6.0 g/dL 05/31/2015 Comp Metabolic Sgt509 GL OB 2.7 g/dL 05/31/2015 Comp Metabolic Zdq673 A/ G Ratio 1.2 Ratio 05/31/2015 Comp Metabolic Ejm751 Os mo 282 mOsmo 05/31/2015 Pt Bfe1679 PT 23.3 seconds 04/15/2015 Pt Nqw4205 INR 2.2 04/15/2015 Pt Yzs3013 Low Intensity - 1.5-2.0 04/15/2015 Pt Xic8677 Mod intensity - 2.0-3.0 04/15/2015 Pt Mvi7755 Hi intensity - 3.0-4.0 04/15/2015 Pt Aji1667 PT 19.5 seconds 04/04/2015 Pt Elw1594 INR 1.7 04/04/2015 Pt Nyn7770 Low Intensity - 1.5-2.0 04/04/2015 Pt Xpc8652 Mod intensity - 2.0-3.0 04/04/2015 Pt Tsx4723 Hi intensity - 3.0-4.0 04/04/2015 Pt Edo0474 PT 39.8 seconds 04/01/2015 Pt Gvb2191 INR 4.3 04/01/2015 Pt Oqr7910 Low Intensity - 1.5-2.0 04/01/2015 Pt Axe4247 Mod intensity - 2.0-3.0 04/01/2015 Pt Fzo8326 Hi intensity - 3.0-4.0 04/01/2015 Metabolic Ord15 [...] Metabolic Ord15 CALCIUM 8.7 mg/dL 02/28/2015 Pt Yxn7382 PT 31.4 seconds 02/28/2015 Pt Jvn5009 INR 3.2 02/28/2015 Pt Btb6055 Low Intensity - 1.5-2.0 02/28/2015 Pt Ged0895 Mod intensity - 2.0-3.0 02/28/2015 Pt Fjw9269 Hi intensity - 3.0-4.0 02/28/2015 Pt Ahd9472 PT 23.2 seconds 01/18/2015 Pt Hna0779 INR 2.1 01/18/2015 Pt Cab7177 Low Intensity - 1.5-2.0 01/18/2015 Pt Xng0790 Mod intensity - 2.0-3.0 01/18/2015 Pt Esf6796 Hi intensity - 3.0-4.0 01/18/2015 Pt Vko8487 PT 18.2 seconds 01/10/2015 Pt Fbe9824 INR 1.6 01/10/2015 Pt Cpf9923 Low Intensity - 1.5-2.0 01/10/2015 Pt Tgm2437 Mod intensity - 2.0-3.0 01/10/2015 Pt Vsd3509 Hi intensity - 3.0-4.0 01/10/2015 Review of Systems System Result Effective Dates Constitutional No recent illness 01/10/2019 Constitutional No [...] General 1995 Ears/Nose/Throat lips/teeth/gingiva Overall: benign lips 10/27/2018 None [...] General 1995 Ears/Nose/Throat lips/teeth/gingiva Overall: benign lips 07/11/2018 None [...] 1995 Ears/Nose/Throat oral cavity/pharynx/larynx Overall: no masses 07/11/2018 [...] Date URINALYSIS NONAUTO W /O SCOPE CPT-4: 74644 01/10/2019 URINALYSIS NONAUTO W /O SCOPE CPT-4: 62977 12/05/2018 ROCEPHIN, PER 250 MG CPT-4: J0696 10/27/2018 URINALYSIS NONAUTO W /O SCOPE CPT-4: 58499 10/27/2018 ADMIN INFLUENZA VIRU S VAC CPT-4: G0008 03/24/2018 ADMIN PNEUMOCOCCAL V ACCINE SNOMED CT: 65552840 CPT-4: G0009 03/24/2018 FLU VACC PRSV FREE I NC ANTIG Formatting Model/CDA Sections, Assigned to/Dorothea Tan CPT-4: 24372Ugakjht 03/24/2018 Pneumococcal Polysac charide Vaccine, 23-Valent, Ad CPT-4: 33345 03/24/2018 TRIAMCINOLONE ACET I [place] NOS CPT-4: J3301 06/15/2017 THER/PROPH/DIAG INJ SC/IM CPT-4: 74134 06/15/2017 ADMIN PNEUMOCOCCAL V ACCINE SNOMED CT: 41666223 CPT-4: G0009 03/16/2017 ADMIN INFLUENZA VIRU S VAC CPT-4: G0008 03/16/2017 FLU VAC NO PRSV 4 VA L 3 YRS+ CPT-4: 98151 03/16/2017 PNEUMOCOCCAL VACC [address]: 90555123 CPT-4: 69722 03/16/2017 URINALYSIS NONAUTO W /O SCOPE CPT-4: 97860 08/26/2016 THER/PROPH/DIAG INJ SC/IM CPT-4: 10494 07/22/2016 TRIAMCINOLONE ACET I [place] NOS CPT-4: J3301 07/22/2016 ROCEPHIN, PER 250 MG CPT-4: J0696 07/22/2016 TRIAMCINOLONE ACET I [place] NOS CPT-4: J3301 02/05/2015 Vital Signs Date Vital 01/10/2019 BMI: 32.9 Code: 72484-5 Heart Rate 1: 74 bpm Height: 5'7" Weight: 210 lbs 12/05/2018 Blood Pressure 1: 132/70 Code: 8480-6 BMI: 32.4 Code: 61297-2 Heart Rate 1: 84 bpm Height: 5'7" SpO2: 91% Weight: 207 lbs 11/17/2018 Blood Pressure 1: 102/62 Code: 8480-6 BMI: 32.4 Code: 02537-3 Heart Rate 1: 83 bpm Height: 5'7" SpO2: 94% Weight: 207 lbs 10/27/2018 Blood Pressure 1: 120/74 Code: 8480-6 BMI: 32.4 Code: 41361-8 Heart Rate 1: 65 bpm Height: 5'7" SpO2: 97% Weight: 207 lbs 09/27/2018 Blood Pressure 1: 128/74 Code: 8480-6 BMI: 32.4 Code: 73211-3 Heart Rate 1: 92 bpm Height: 5'7" SpO2: 97% Weight: 207 lbs 08/16/2018 Blood Pressure 1: 104/66 Code: 8480-6 BMI: 32.3 Code: 10465-8 Heart Rate 1: 94 bpm Height: 5'7" SpO2: 96% Weight: 206 lbs 07/11/2018 Blood Pressure 1: 102/68 Code: 8480-6 BMI: 34.5 Code: 23743-9 Heart Rate 1: 101 bpm Height: 5'7" SpO2: 98% Weight: 220 lbs 03/24/2018 Blood Pressure 1: 130/72 Code: 8480-6 BMI: 33.4 Code: 68407-0 Heart Rate 1: 82 bpm Height: 5'7" SpO2: 93% Weight: 213 lbs 11/18/2017 Blood Pressure 1: 128/70 Code: 8480-6 BMI: 33.6 Code: 65945-1 Heart Rate 1: 98 bpm Height: 5'7" SpO2: 97% Weight: 214 lbs oz 09/30/2017 Blood Pressure 1: 100/50 Code: 8480-6 BMI: 34.0 Code: 28794-0 Heart Rate 1: 66 bpm Height: 5'7" SpO2: 96% Weight: 217 lbs 08/17/2017 Blood Pressure 1: 104/60 Code: 8480-6 BMI: 33.7 Code: 09705-4 Heart Rate 1: 99 bpm Height: 5'7" SpO2: 97% Weight: 215 lbs 06/15/2017 Blood Pressure 1: 120/64 Code: 8480-6 BMI: 33.5 Code: 06374-3 Heart Rate 1: 91 bpm Height: 5'7" SpO2: 94% Weight: 214 lbs 04/01/2017 Blood Pressure 1: 110/68 Code: 8480-6 BMI: 154.4 Code: 37706-5 Heart Rate 1: 66 bpm Height: 2'7" SpO2: 95% Weight: 211 lbs 03/16/2017 Blood Pressure 1: 130/72 Code: 8480-6 BMI: 33.0 Code: 53326-6 Heart Rate 1: 95 bpm Height: 5'7" SpO2: 97% Weight: 211 lbs 02/09/2017 Blood Pressure 1: 120/70 Code: 8480-6 BMI: 32.9 Code: 73234-7 Heart Rate 1: 78 bpm Height: 5'7" SpO2: 96% Weight: 210 lbs 10/13/2016 Blood Pressure 1: 118/76 Code: 8480-6 BMI: 32.6 Code: 03380-4 Heart Rate 1: 97 bpm Height: 5'7" SpO2: 98% Weight: 208 lbs 07/31/2016 Blood Pressure 1: 110/64 Code: 8480-6 BMI: 32.1 Code: 21097-5 Heart Rate 1: 79 bpm Height: 5'7" SpO2: 94% Weight: 205 lbs 07/22/2016 Blood Pressure 1: 108/74 Code: 8480-6 BMI: 32.1 Code: 26789-9 Heart Rate 1: 71 bpm Height: 5'7" SpO2: 97% Temperature: 36.9 (C ) / 98.4 (F) Weight: 205 lbs 05/01/2016 Blood Pressure 1: 120/72 Code: 8480-6 BMI: 32.7 Code: 35618-2 Heart Rate 1: 75 bpm Height: 5'7" SpO2: 94% Weight: 209 lbs 04/06/2016 Blood Pressure 1: 106/62 Code: 8480-6 BMI: 32.7 Code: 29350-8 Heart Rate 1: 83 bpm Height: 5'7" SpO2: 97% Weight: 209 lbs 03/06/2016 Blood Pressure 1: 112/68 Code: 8480-6 BMI: 32.7 Code: 53749-3 Heart Rate 1: 90 bpm Height: 5'7" SpO2: 97% Weight: 209 lbs 03/03/2016 Blood Pressure 1: 120/62 Code: 8480-6 BMI: 32.7 Code: 39648-0 Heart Rate 1: 92 bpm Height: 5'7" SpO2: 98% Weight: 209 lbs 02/07/2016 Blood Pressure 1: 110/64 Code: 8480-6 BMI: 32.7 Code: 31276-2 Heart Rate 1: 87 bpm Height: 5'7" SpO2: 97% Weight: 209 lbs 12/13/2015 Blood Pressure 1: 110/64 Code: 8480-6 BMI: 33.5 Code: 34140-2 Heart Rate 1: 90 bpm Height: 5'7" SpO2: 97% Weight: 214 lbs 12/03/2015 Blood Pressure 1: 132/76 Code: 8480-6 BMI: 33.4 Code: 36473-2 Heart Rate 1: 82 bpm Height: 5'7" SpO2: 99% Weight: 213 lbs 11/20/2015 Blood Pressure 1: 108/68 Code: 8480-6 BMI: 32.4 Code: 96612-3 Heart Rate 1: 77 bpm Height: 5'7" SpO2: 97% Weight: 207 lbs 09/17/2015 Blood Pressure 1: 122/76 Code: 8480-6 BMI: 33.0 Code: 97762-1 Heart Rate 1: 91 bpm Height: 5'7" SpO2: 97% Weight: 211 lbs 05/31/2015 Blood Pressure 1: 128/82 Code: 8480-6 BMI: 33.4 Code: 18685-2 Heart Rate 1: 98 bpm Height: 5'7" SpO2: 99% Weight: 213 lbs 02/05/2015 Blood Pressure 1: 128/80 Code: 8480-6 BMI: 32.6 Code: 13543-8 Heart Rate 1: 86 bpm Height: 5'7" SpO2: 97% Weight: 208 lbs 11/20/2014 Blood Pressure 1: 128/90 Code: 8480-6 BMI: 30.9 Code: 75173-2 Heart Rate 1: 94 bpm Height: 5'7" Weight: 197 lbs Functional Status No Functional Status data History of Present Illness Symptom Name Status Resu lt Effective Date Notes Quality acute 01/10/2019 None Onset and Resolution [...] Denies fever 05/31/2015 None hypothyroid [employer]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 [employer] 02/05/2015 None hypothyroid Pertinent Findings coarse [...] extremity weakness 11/20/2014 None hypothyroid 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 PATIENT, LEVEL III Diagnosis: Dysuria[ICD10: R30.0] Roxie Pisano MD, [facility] CPT-4: 40944 01/10/2019 ([id number]) 47060 EST. P ATIENT, LEVEL III Diagnosis: Urinary tract infection, site not specified[ICD10: N39.0] Brielle Pisano MD, [facility] CPT-4: 04719 12/05/2018 ([id number]) 00692 EST. P ATIENT, LEVEL III Diagnosis: Contusion of right lower leg, initial encounter[ICD10: S80.11XA] Diagnosis: detention (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[ICD10: Z79.01] Brielle Pisano MD, [facility] CPT-4: 36859 11/17/2018 ([id number]) 74843 EST. P ATIENT, LEVEL III Diagnosis: Urinary tract infection, site not specified[ICD10: N39.0] Brielle Pisano MD, [facility] CPT-4: 23904 10/27/2018 ([id number]) 61721 EST. P ATIENT, LEVEL IV Diagnosis: Atrophy of thyroid (acquired)[ICD10: E03.4] Diagnosis: Essential (primary) hypertension[ICD10: I10] Diagnosis: Other allergic rhinitis[ICD10: J30.89] Diagnosis: Other skin changes[ICD10: R23.8] Diagnosis: Chronic atrial fibrillation[ICD10: I48.2] Diagnosis: detention (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[ICD10: Z79.01] Valerie Pisano MD, C CPT-4: 95333 09/27/2018 ([id number]) 80393 EST. 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 P ATIENT, LEVEL IV Diagnosis: Atrophy of thyroid (acquired)[ICD10: E03.4] Diagnosis: Essential (primary) hypertension[ICD10: I10] Diagnosis: Other fatigue[ICD10: R53.83] Diagnosis: Localized edema[ICD10: R60.0] Valerie Pisano MD, [facility] CPT-4: 85352 07/11/2018 ([id number]) 82291 EST. P ATIENT, LEVEL IV Diagnosis: Essential (primary) hypertension[ICD10: I10] Diagnosis: Atrophy of thyroid (acquired)[ICD10: E03.4] Diagnosis: Chronic atrial fibrillation[ICD10: I48.2] Valerie Pisano MD, C CPT-4: 10850 03/24/2018 ([id number]) 15129 EST. P ATIENT, LEVEL IV Diagnosis: Essential (primary) hypertension[ICD10: I10] Diagnosis: Atrophy of thyroid (acquired)[ICD10: E03.4] Diagnosis: Chronic atrial fibrillation[ICD10: I48.2] Valerie Pisano MD, [facility] CPT-4: 41937 11/18/2017 28368 EST. PATIENT, LEVEL IV Diagnosis: Localized edema[ICD10: R60.0] Roxie Pisano MD, [facility] CPT-4: 58250 09/30/2017 ([id number]) 70603 EST. P ATIENT, LEVEL III Diagnosis: Essential (primary) hypertension[ICD10: I10] Valerie Pisano MD, C CPT-4: 04161 08/17/2017 ([id number]) 20917 EST. P ATIENT, LEVEL IV Diagnosis: Essential (primary) hypertension[ICD10: I10] Diagnosis: Atrophy of thyroid (acquired)[ICD10: E03.4] Diagnosis: Chronic atrial fibrillation[ICD10: I48.2] Diagnosis: Cervicalgia[ICD10: M54.2] Diagnosis: Other muscle spasm[ICD10: M62.838] Valerie Pisano MD, [facility] CPT- 4: 90115 06/15/2017 72155 EST. PATIENT, LEVEL III Diagnosis: Laceration without foreign body of other finger without damage to nail, initial encounter[ICD10: S61.218A] Roxie Pisano MD, [facility] CPT-4: 64403 04/01/2017 ([id number]) 86205 EST. P ATIENT, LEVEL IV Diagnosis: Chronic atrial fibrillation[ICD10: I48.2] Diagnosis: detention (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[ICD10: Z79.01] Diagnosis: Encounter for immunization[ICD10: Z23] Diagnosis: Atrophy of thyroid (acquired)[ICD10: E03.4] Valerie Pisano MD, [facility] CPT-4: 26855 03/16/2017 ([id number]) 59512 EST. P ATIENT, LEVEL IV Diagnosis: Chronic atrial fibrillation[ICD10: I48.2] Diagnosis: Essential (primary) hypertension[ICD10: I10] Diagnosis: Other fatigue[ICD10: R53.83] Diagnosis: detention (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[ICD10: Z79.01] Diagnosis: Atrophy of thyroid (acquired)[ICD10: E03.4] Valerie Pisano MD, [facility] CPT-4: 83277 02/09/2017 ([id number]) 14388 EST. P ATIENT, LEVEL IV Diagnosis: Essential (primary) hypertension[ICD10: I10] Diagnosis: Chronic atrial fibrillation[ICD10: I48.2] Diagnosis: Tinea corporis[ICD10: B35.4] Diagnosis: detention (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[ICD10: Z79.01] Diagnosis: Other skin changes[ICD10: R23.8] Valerie Pisano MD, [facility] CPT-4: 34413 10/13/2016 02029 EST. PATIENT, LEVEL III Diagnosis: Other acute sinusitis[ICD10: J01.80] Diagnosis: Other allergic rhinitis[ICD10: J30.89] Roxie Pisano MD, [facility] CPT-4: 41543 07/31/2016 ([id number]) 63832 EST. P ATIENT, LEVEL III Diagnosis: Acute recurrent maxillary sinusitis[ICD10: J01.01] Valerie Pisano MD, [facility] CPT-4: 24202 07/22/2016 58072 EST. PATIENT, LEVEL IV Diagnosis: Essential (primary) hypertension[ICD10: I10] Diagnosis: Other allergic rhinitis[ICD10: J30.89] Diagnosis: Localized edema[ICD10: R60.0] Roxie Pisano MD, [facility] CPT-4: 19734 05/01/2016 12129 EST. PATIENT, LEVEL III Diagnosis: Cellulitis of left lower limb[ICD10: L03.116] Diagnosis: Localized edema[ICD10: R60.0] Roxie Pisano MD, [facility] CPT-4: 64838 04/06/2016 ([id number]) Miscellaneou s no charge Diagnosis: Cellulitis of left lower limb[ICD10: L03.116] Diagnosis: Localized edema[ICD10: R60.0] Roxie Pisano MD, [facility] CPT-4: 27105 03/10/2016 ([id number]) Miscellaneou s no charge Diagnosis: Cellulitis of left lower limb[ICD10: L03.116] Roxie Pisano MD, [facility] CPT-4: 31212 03/06/2016 97920 EST. PATIENT, LEVEL IV Diagnosis: Cellulitis of left lower limb[ICD10: L03.116] Diagnosis: Localized edema[ICD10: R60.0] Roxie Pisano MD, [facility] CPT-4: 62904 03/03/2016 ([id number]) 92329 EST. P ATIENT, LEVEL III Diagnosis: Essential (primary) hypertension[ICD10: I10] Diagnosis: lobsterman (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[ICD10: Z79.01] Diagnosis: Chronic atrial fibrillation[ICD10: I48.2] Brielle Pisano MD, [facility] CPT-4: 41026 02/07/2016 ([id number]) 87776 EST. P ATIENT, LEVEL III Diagnosis: Iliotibial band syndrome, right leg[ICD10: M76.31] Diagnosis: Localized edema[ICD10: R60.0] Brielle Pisano MD, [facility] CPT- 4: 63272 12/13/2015 ([id number]) 94390 EST. P ATIENT, LEVEL III Diagnosis: Localized edema[ICD10: R60.0] Diagnosis: Essential (primary) hypertension[ICD10: I10] Brielle Pisano MD, [facility] CPT-4: 05372 12/03/2015 ([id number]) 06818 EST. P ATIENT, LEVEL IV Diagnosis: lobsterman (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[ICD10: Z79.01] Diagnosis: Other skin changes[ICD10: R23.8] Diagnosis: Localized edema[ICD10: R60.0] Diagnosis: Pain in right foot[ICD10: M79.671] [facility] CPT- 4: 24528 11/20/2015 72415 EST. PATIENT, LEVEL IV Diagnosis: Essential (primary) hypertension[ICD10: I10] Diagnosis: detention (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[ICD10: Z79.01] Diagnosis: Muscle spasm of back[ICD10: M62.830] [facility] CPT- 4: 66243 09/17/2015 ([id number]) 18429 EST. P ATIENT, LEVEL IV Diagnosis: Localized edema[ICD10: R60.0] Diagnosis: Other specified hypothyroidism[ICD10: E03.8] Diagnosis: Essential (primary) hypertension[ICD10: I10] [facility] CPT-4: 29314 05/31/2015 ([id number]) 70411 EST. P ATIENT, LEVEL III Diagnosis: ALLERGIC RHINITIS[ICD9: 477.9] Diagnosis: ESSENTIAL HYPERTENSION[ICD9: 401.9] [facility] CPT-4: 14324 02/05/2015 ([id number]) [facility] Diagnosis: ESSENTIAL HYPERTENSION[ICD9: 401.9] Diagnosis: HYPOTHYROIDISM[ICD9: 244.9] Diagnosis: ACTINIC KERATOSIS[ICD9: 702.0] [facility] CPT-4: 27992 11/20/2014 Plan of Care Planned Activity Notes C odes Status Date Visit Plan: Dysuria - negative UA - pt is to increase her fluid intake and notify clinic if symptoms do not improve, if they worsen, or with any other changes, questions, or concerns. 01/10/2019 Appointment: Roxie Cazares WPtel: [address] [place], [place] [id number] (30 min) [facility] 01/10/2019 Patient Education: Patient Medication Summary Completed 01/10/2019 Visit Plan: UTI - pt with positive urinalysis - culture sent if appropriate. Antibiotic electronically prescribed to pt's pharmacy of choice. Pt to call if symptoms do not improve. 12/05/2018 Appointment: Brielle Cavazos WPtel: [facility] [place] [address] (30 min) Complex 12/05/2018 Patient Education: Patient Medication Summary Completed 12/05/2018 Care Plan: Urine Culture Pending 12/05/2018 Visit Plan: Contusion -right lower leg -continue to monitor symptoms -call if does not resolve or other symptoms develop. Patient verbalized understanding of plan. detention use of anti coagulants -check PT/INR 11/17/2018 Appointment: Brielle Cavazos WPtel: [address] [place], [place] [id number] [place] [address] (30 min) Complex 11/17/2018 Patient Education: Patient Medication Summary Completed 11/17/2018 Visit Plan: UTI - pt with positive urinalysis - culture sent if appropriate. Antibiotic electronically prescribed to pt's pharmacy of choice. Pt to call if symptoms do not improve. 10/27/2018 Appointment: Brielle Cavazos WPtel: [address] [place], [place] [phone] (10 min) Simple 10/27/2018 Patient Education: Patient [...] Hernandez. 09/27/2018 Appointment: Valerie Pisano WPtel: [phone] [facility] (15 min) Moderate 09/27/2018 Patient Education: Patient [...] daily. 08/16/2018 Appointment: Valerie Pisano WPtel: [phone] [facility] (15 min) Moderate 08/16/2018 Patient Education: Patient Medication Summary Completed 08/16/2018 Patient Education: Hypertension Completed 08/16/2018 Patient Education: Patient Medication Summary Completed 07/29/2018 Appointment: Brielle Cavazos WPtel: [phone] [phone] (15 min) Moderate 07/12/2018 Visit Plan: Hypertension [...] daily. 07/11/2018 Appointment: Valerie Pisano WPtel: [phone] [facility] (15 min) Moderate 07/11/2018 Patient Education: Patient [...] today. 03/24/2018 Appointment: Valerie Pisano WPtel: [phone] [facility] (15 min) Moderate 03/24/2018 Patient Education: Patient Medication Summary Completed 03/24/2018 Patient Education: Hypertension Completed 03/24/2018 Visit Plan: Hypertension - sana helm maicostephen - continue with current medications, continue with [...] of control. 11/18/2017 Appointment: Valerie Pisano WPtel: [address] [place], [place] [address] (15 min) Moderate 11/18/2017 Patient Education: Patient Medication Summary Completed 11/18/2017 Referral: [facility] WPtel: [address] [facility] Pt notified at appointment Appointment Confirmed 10/01/2017 [...] Unna Boots 09/30/2017 Appointment: [phone] (30 min) Complex 09/30/2017 Patient Education: Patient Medication Summary Completed 09/30/2017 Care Plan: Referral Order SNOMED-CT : [id number] Pending 09/30/2017 Visit Plan: Hypertension - well [...] this time. 08/17/2017 Appointment: [facility]el[phone] (15 min) Moderate 08/17/2017 Patient Education: Patient [...] physical therapy - will refer to [facility]. RX for voltaren to neck muscles. allergies - kenalog 40mg im bristol myeres squibb - lot # [id number] expires september 2018 06/15/2017 Visit Plan: Hypertension [...] physical therapy - will refer to [facility]. RX for voltaren to neck muscles. 06/15/2017 Appointment: Valerie Pisano WPtel: [phone] [facility] (15 min) Moderate 06/15/2017 Patient Education: Patient Medication Summary Completed 06/15/2017 Care Plan: Referral Order SNOMED-CT : [id number] Pending 06/15/2017 Appointment: Nurse Visit 04/05/2017 Appointment: [...] tetanus booster. 04/01/2017 Appointment: Roxie Cazares WPtel: [phone] [facility] (15 min) Moderate 04/01/2017 Patient Education: [...] today 03/16/2017 Appointment: [facility]Ptel[facility] [phone] [facility] (15 min) Moderate 03/16/2017 Patient Education: Patient [...] the nasal steroid allergy spray. 02/09/2017 Appointment: [facility]oy [facility]Ptel[phone] [facility] (15 min) Moderate 02/09/2017 Patient Education: Patient [...] for nystatin 10/13/2016 Appointment: Valerie Pisano WPtel: [phone] [facility] (15 min) Moderate 10/13/2016 Patient Education: Patient Medication Summary Completed 10/13/2016 Patient Education: Obesity Completed 10/13/2016 Patient Education: Hypertension Completed 10/13/2016 Care Plan: Urine Culture Pending 08/31/2016 Appointment: Roxie Cazares WPtel: [phone] [facility] Lab Draw 08/27/2016 Appointment: Nurse Visit 08/26/2016 [...] spray. 07/31/2016 Appointment: Brielle Cavazos WPtel: [phone] [phone] [place] (30 min) Complex 07/31/2016 Patient Education: Patient Medication Summary Completed 07/31/2016 Patient Education: Obesity Completed 07/31/2016 Visit Plan: Sinusitis - Pt has acut e infection - pain in face, maxillary region, Pt informed to use decongestant, RX given to patient, sinus rinses also recommended. Call if symptoms do not show improvement. 07/22/2016 Appointment: Val[facility] Pisano WPtel: [phone] [facility] (15 min) Moderate 07/22/2016 Patient Education: Patient [...] peripheral edema. 05/01/2016 Appointment: Brielle Cavazos WPtel: [phone] [phone] (30 min) Complex 05/01/2016 Patient Education: [...] peripheral edema. 04/06/2016 Appointment: Roxie Cazares WPtel: [phone] [facility] (30 min) Complex 04/06/2016 Patient Education: Patient Medication Summary Completed 04/06/2016 Patient Education: Obesity Completed 04/06/2016 Visit Plan: left foot - improved - pt finished with antibiotics - continue to monitor - notify clinic with any concerns. Repeat INR today. 03/10/2016 Appointment: Brielle Cavazos WPtel: [facility]3 [phone] (30 min) Complex 03/10/2016 Patient Education: Patient Medication Summary Completed 03/10/2016 Visit Plan: Cellulitis - continue w ith oral antibiotics as previously directed, return to clinic as previously directed, call for acute change in symptoms, worsening redness, warmth, discharge. 03/06/2016 Appointment: Brielle Cavazos WPtel: [facility]7 [phone] (15 min) Moderate 03/06/2016 Patient Education: Patient Medication Summary Completed 03/06/2016 Patient Education: Obesity Completed 03/06/2016 Visit Plan: Cellulitis - continue w ith oral antibiotics as previously directed, return to clinic as previously directed, call for acute change in symptoms, worsening redness, warmth, discharge. 03/03/2016 Appointment: Brielle Cavazos WPtel: [facility]0 [phone] (15 min) Moderate 03/03/2016 Patient Education: [...] 3.5. 02/07/2016 Appointment: Brielle Cavazos WPtel: [phone] [phone] (30 min) Complex 02/07/2016 Patient Education: Patient Medication Summary Completed 02/07/2016 Patient Education: Obesity Completed 02/07/2016 Patient Education: Hypertension Completed 02/07/2016 Appointment: Brielle Cavazos WPtel: [facility] [address] (30 min) Complex 02/04/2016 Visit Plan: Iliotibial [...] edema. 12/13/2015 Appointment: Brielle Cavazos WPtel: [phone] [phone] (15 min) Moderate 12/13/2015 Patient Education: [...] home. 12/03/2015 Appointment: Brielle Cavazos WPtel: [phone] [phone] [place] (30 min) Complex 12/03/2015 Patient Education: Patient [...] Hypertension Completed 02/05/2015 Appointment: Valerie Pisano WPtel: [facility] (15 min) Moderate 01/29/2015 Visit Plan: Hypertension [...] control. 11/20/2014 Appointment: Val[facility] Pisano WPtel: [phone] [facility] [place] ([place]) New Patient 11/20/2014 Patient Education: Patient Medication Summary Completed 11/20/2014 Patient Education: Hypertension Completed 11/20/2014 Patient Education: Patient Medication Summary Completed 10/19/2014 Referral: [facility] WPtel: Referral Appointment Requested Referral: [facility] Referral Appointment Confirmed Instructions Comment . UTI [...] twice daily. get blood work one w [place] before next appt - fasting labs Decrease [...] further attempt to reduce peripheral edema. . Dysuria - negative UA - pt [...] muscles. allergies - kenalog 40mg im bristol pfwaterworks squibb - lot # [id number] expires september 2018 . Hypertension - wel [...] week . Hypertension - well controlled - dalyin nue with current medications, continue with no [...] symptoms develop. Patient verbalized understanding of plan. lobsterman use of anti coagulants -check PT/INR . [...]
--- OUTSIDE RECORDS SUMMARY | 2019-09-12 10:47 | XMS REPORT | CCD ---
Author Author Clara Piasno Organization Valerie Pisano MD, [facility] Address [address] [place] [address] Phone Care Team Providers Care Blue Split Trimmer Name Role Phone PP Unavailable CCM Unavailable Summary Purpose Interface Exchange Insurance Providers Payer name Policy type / Coverage type Covered green party ID Effective Begin Date Effective End Date WPS Medicare Part B Medicare Part B [id number] 2018 Unknown [employer] Medicare Part B [id number] 2018 Unknown Family history Sister Diagnosis Age At Onset defect Unknown Breast cancer Unknown Daughter Diagnosis Age At Onset Breast cancer Unknown Mother Diagnosis Age At Onset No Family Disease Entered N/A Social History Social History Element Codes Description Effective Dates Marital status Unknown M arried Lane 11/20/2014 Number of children Unknown 6 11/20/2014 Employment Unknown Retir ed 11/20/[address]: 2020801 Quit over 10 years ago 1963 11/20/2014 [...] ICD-9: 924.4 ICD-10: S80.11XA 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/2018 Unknown assisted (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 ICD-9: V58.61 ICD-10: [...] Unknown HYPOTHYROIDISM ICD-9: 244.9 Active 11/19/2014 Unknown assisted current us 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 therapy ICD-9: V58.61 Active 10/19/2014 Unknown Problems Condition Codes Effectiv e Dates Condition Status Dysuria ICD-9: 788.1 ICD-10: R30.0 08/26/2016 Active Urinary tract infect ion, site not specified ICD-9: 599.0 ICD-10: N39.0 02/13/2016 Active Contusion of right l ower leg, initial encounter ICD-9: 924.4 ICD-10: S80.11XA 11/17/2018 Active 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 ICD-9: V58.61 ICD-10: [...] 11/19/2014 Active HYPOTHYROIDISM ICD-9: 244.9 11/19/2014 Active 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 therapy ICD-9: V58.61 10/19/2014 Active Medications Medication Codes Instruc tions Start Date Stop Date Sta Fill Instructions Pyridium 200 mg tablet RxNorm: 3305047 1 Tablet(s) PO TID PRN 12/05/2018 No Stop Date Active Keflex 500 mg capsule RxNorm: 006099 1 Capsule(s) PO TID 12/05/2018 12/11/2018 Inactive Keflex 500 mg capsule RxNorm: 609619 1 Capsule(s) PO TID 11/17/2018 11/21/2018 Inactive doxycycline hyclate 100 mg capsule RxNorm: 6443930 1 Capsule(s) PO BID 10/31/2018 10/30/2018 In active doxycycline hyclate 100 mg capsule RxNorm: 5606773 1 Capsule(s) PO BID 10/31/2018 11/06/2018 In active Keflex 500 mg capsule RxNorm: 089633 1 Capsule(s) PO TID 10/27/2018 10/30/2018 Inactive ceftriaxone 500 mg s olution for injection RxNorm: 5349406 Inj 10/27/2018 10/27/2018 Inactive Coumadin 4 mg tablet RxNorm: 627570 1 Tablet(s) PO daily 08/16/2018 08/10/2019 Active this is an update to her RX - she will l et you know when she needs refill triamcinolone aceton sreekanth 0.025 % topical cream RxNorm: 7016372 1 Application TOP QI D 08/16/2018 No Stop Date Active levothyroxine 125 mc g tablet RxNorm: 440864 TAKE ONE TABLET BY MO [facility] DAILY ON WEDNESDAY, WED, AND WEDNESDAY, AND 1/2 TABLET ON ., , WED AND CYRIL. TAKE ON AN EMPTY STOMACH 08/04/2018 04/30/2019 Active meclizine 25 mg tablet RxNorm: 240149 1 Tablet(s) PO TID as needed Dizziness 07/22/2018 No Stop Date Active meclizine 25 mg tablet RxNorm: 770864 1 Tablet(s) PO TID as needed Dizziness 07/19/2018 07/21/2018 In active furosemide 40 mg tablet RxNorm: 644141 1 Tablet(s) BID take 1.5 tabs twice a da y x 7 days then 1 pill daily thereafter 07/11/2018 02/05/2019 Active Coumadin 4 mg tablet RxNorm: 442930 1 Tablet(s) PO daily except 1.5 pills on WEDNESDAY AND Wednesday07/11/2018 08/15/2018 Inactive this is an update to her RX - she will let you know when she needs refill warfarin 5 mg tablet RxNorm: 770179 Tablet(s) TAKE ONE TABLET BY MOUTH DAILY EXCEPT / TAKE 4 MG 04/06/2018 08/22/2019 Active diltiazem 60 mg tablet RxNorm: 697741 1/2 Tablet(s) PO QID 03/24/2018 No Stop Date Active levothyroxine 125 mc g tablet RxNorm: 379987 TAKE ONE TABLET BY [facility] DAILY ON WEDNESDAY, WED, AND WEDNESDAY, AND 1/2 TABLET ON , , WED AND WEDNESDAY. TAKE ON AN EMPTY STOMACH 02/02/2018 07/31/2018 Inactive Coumadin 4 mg tablet RxNorm: 471423 TAKE ONE TABLET BY MOUTH DAILY ON AND Wednesday10/14/2017 07/10/2018 Inactive nystatin 100,000 uni t/gram topical cream RxNorm: 678848 1 Application TOP TID 08/17/2017 No Stop Date Active Voltaren 1 % topical gel RxNorm: 055292 2 Gram(s) TOP TID luiz ly to shoulder and neck 08/17/2017 No Stop Date Active triamcinolone aceton sreekanth 0.025 % topical cream RxNorm: 1426769 1 Application TOP BI D 08/17/2017 08/15/2018 In active levothyroxine 125 mc g tablet RxNorm: 574069 1 Tablet(s) UD 1 pill wed/wed/wed, 1/2 pill //sat/sun take ON AN EMPTY STOMACH 08/05/2017 02/01/2018 Inactive Coumadin 4 mg tablet RxNorm: 340727 1 Tablet(s) PO Wed/07/29/2017 10/13/2017 Inactive warfarin 5 mg tablet RxNorm: 612774 TAKE 1 AND 1/2 TABLETS BY MOUTH ON AND WEDNESDAY. TAKE ONLY 1 TABLET BY MOUTH ALL OTHER DAYS OF THE WEEK 07/12/2017 04/05/2018 In active furosemide 40 mg tablet RxNorm: 311072 Tablet(s) BID TAKE ONE TABLET BY MOUTH D AILY 06/15/2017 07/10/2018 Inactive Voltaren 1 % topical gel RxNorm: 627656 2 Gram(s) TOP TID luiz ly to shoulder and neck 06/15/2017 08/16/2017 Inactive Keflex 500 mg capsule RxNorm: 640203 1 Capsule(s) PO TID 04/01/2017 04/07/2017 Inactive furosemide 40 mg tablet RxNorm: 498751 TAKE ONE TABLET BY MOUTH DAILY 03/18/2017 06/14/2017 In active Claritin-D 12 Hour 5 mg-120 mg tablet,extended release RxNorm: 9614479 1 Tablet(s) PO BID 03/16/2017 05/14/2017 Inactive Lipitor 20 mg tablet RxNorm: 568039 1 Tablet(s) PO daily 02/09/2017 03/10/2017 Inactive lisinopril 2.5 mg ta blet RxNorm: 904161 1 Tablet(s) PO daily 02/09/2017 03/10/2017 Inactive Nasonex 50 mcg/actua tion Woodrow RxNorm: 3143672 1 [place]row NASAL BID 02/09/2017 09/06/2017 Inactive levothyroxine 125 mc g tablet RxNorm: 450544 1 Tablet(s) UD 1 pill wed/wed/wed, 1/2 pill //sat/sun take ON AN EMPTY STOMACH 02/09/2017 08/04/2017 Inactive fluorouracil 5 % top ical cream RxNorm: 890553 1 Application TOP BID 02/09/2017 02/18/2017 Inactive potassium chloride E R 20 mEq tablet,extended release RxNorm: 028098 Tablet(s) TAKE ONE TABLET BY MOUTH DAILY 02/08/2017 02/02/2018 Inactive warfarin 5 mg tablet RxNorm: 113353 TAKE 1 AND 1/2 TABLETS BY MOUTH ON AND WEDNESDAY. TAKE ONLY 1 TABLET BY MOUTH ALL OTHER DAYS OF THE WEEK 12/14/2016 05/30/2017 In active potassium chloride E R 20 mEq tablet,extended release RxNorm: 167827 TAKE ONE TABLET BY MOUTH DAILY 10/29/2016 01/26/2017 Inactive warfarin 5 mg tablet RxNorm: 833599 TAKE 1 AND 1/2 TABLETS BY MOUTH ON AND WEDNESDAY. TAKE ONLY 1 TABLET BY MOUTH ALL OTHER DAYS OF THE WEEK 10/27/2016 12/13/2016 In active nystatin 100,000 uni t/gram topical cream RxNorm: 688348 1 Application TOP TID 10/13/2016 08/16/2017 In active nitrofurantoin 50 mg capsule RxNorm: 249551 1 Capsule(s) PO BID 09/04/2016 09/03/2016 Inactive nitrofurantoin macro crystal 50 mg capsule RxNorm: 195044 1 Capsule(s) PO BID 09/04/2016 09/10/2016 In active Cipro 500 mg tablet RxNorm: 887572 1 Tablet(s) PO BID 08/26/2016 10/12/2016 Inactive Zyrtec 10 mg tablet RxNorm: 5906081 1 Tablet(s) PO daily 07/31/2016 08/29/2016 Inactive prednisone 20 mg tablet RxNorm: 199797 2 Tablet(s) PO daily 07/31/2016 08/02/2016 Inactive Kenalog 40 mg/mL zohra pension for injection RxNorm: 5239221 Milliliter(s) Inj 07/22/2016 07/22/2016 In active ceftriaxone 500 mg s olution for injection RxNorm: 3229868 Inj 07/22/2016 07/22/2016 Inactive Flonase Allergy Reli ef 50 mcg/actuation nasal spray,suspension RxNorm: 0014133 1 [place] NASAL BID 07/22/2016 08/20/2016 Inactive azithromycin 250 mg tablet RxNorm: 382464 2 Tablet(s) PO on day #1, then 1 pill daily x 4 days 07/22/2016 10/12/2016 Inactive warfarin 5 mg tablet RxNorm: 940129 TAKE 1 AND 1/2 TABLETS BY MOUTH ON AND WEDNESDAY. TAKE ONLY 1 TABLET BY MOUTH ALL OTHER DAYS OF THE WEEK 07/09/2016 09/30/2016 In active levothyroxine 125 mc g tablet RxNorm: 956816 Tablet(s) TAKE ONE TA BLET BY MOUTH DAILY ON AN EMPTY STOMACH 06/23/2016 02/08/2017 Inactive levothyroxine 125 mc g tablet RxNorm: 220455 TAKE ONE TABLET BY MO U[facility] DAILY ON AN EMPTY STOMACH 06/23/2016 06/22/2016 Inactive levothyroxine 125 mc g tablet RxNorm: 385129 TAKE ONE TABLET BY MO UTH DAILY ON AN EMPTY STOMACH 06/23/2016 08/04/2017 Inactive cetirizine 10 mg tablet RxNorm: 6313722 TAKE ONE TABLET BY MOUTH DAILY 06/16/2016 10/13/2016 In active furosemide 40 mg tablet RxNorm: 232304 Tablet(s) TAKE ONE TABLET BY MOUTH DAILY 06/05/2016 12/01/2016 In active cetirizine 10 mg tablet RxNorm: 8163128 1 Tablet(s) PO daily 05/01/2016 05/30/2016 Inactive Levaquin 250 mg tablet RxNorm: 227238 Tablet(s) PO 2 pills day one and 1 pill day 2-7 04/06/2016 07/21/2016 Inactive warfarin 5 mg tablet RxNorm: 261164 Tablet(s) 1/2 TABLETS BY MOUTH ON AND WEDNESDAY. TAKE ONLY 1 TABLET BY MOUTH ALL OTHER DAYS OF THE WEEK 03/18/2016 07/07/2016 In active triamcinolone aceton sreekanth 0.025 % topical cream RxNorm: 8044508 1 Application TOP BI D 03/10/2016 08/16/2017 In active potassium chloride E R 20 mEq tablet,extended release RxNorm: 075904 1 Tablet(s) PO daily 03/04/2016 06/01/2016 Inactive Levaquin 250 mg tablet RxNorm: 666390 Tablet(s) PO 2 pills day one and 1 pill day 2-7 03/04/2016 04/05/2016 Inactive Levaquin 250 mg tablet RxNorm: 787673 Tablet(s) PO 2 pills day one and 1 pill day 2-7 03/03/2016 03/03/2016 Inactive potassium chloride E R 20 mEq tablet,extended release RxNorm: 893056 1 Tablet(s) PO daily 03/03/2016 03/03/2016 Inactive Cipro 500 mg tablet RxNorm: 478750 1 Tablet(s) PO BID 02/20/2016 07/21/2016 Inactive Cipro 500 mg tablet RxNorm: 425445 1 Tablet(s) PO BID 02/20/2016 02/19/2016 Inactive furosemide 40 mg tablet RxNorm: 849510 TAKE ONE TABLET BY MOUTH DAILY 01/27/2016 01/26/2016 In active warfarin 5 mg tablet RxNorm: 240908 TAKE 1 AND 1/2 TABLETS BY MOUTH ON AND WEDNESDAY. TAKE ONLY 1 TABLET BY MOUTH ALL OTHER DAYS OF THE WEEK 01/27/2016 01/26/2016 In active furosemide 40 mg tablet RxNorm: 958516 TAKE ONE TABLET BY MOUTH DAILY 01/27/2016 06/04/2016 In active warfarin 5 mg tablet RxNorm: 506586 TAKE 1 AND 1/2 TABLETS BY MOUTH ON AND WEDNESDAY. TAKE ONLY 1 TABLET BY MOUTH ALL OTHER DAYS OF THE WEEK 01/27/2016 03/17/2016 In active potassium chloride E R 20 mEq tablet,extended release RxNorm: 533104 1 Tablet(s) PO daily 11/20/2015 03/02/2016 Inactive furosemide 40 mg tablet RxNorm: 289821 TAKE ONE TABLET BY MOUTH DAILY 11/12/2015 01/26/2016 In active Zovirax 5 % topical cream RxNorm: 342175 TOP QID 0 09/24/2015 09/23/2015 Inactive Zovirax 5 % topical cream RxNorm: 028628 TOP QID 0 09/24/2015 11/19/2015 Inactive nystatin 100,000 uni t/gram topical cream RxNorm: 747011 1 Application TOP TID 09/17/2015 10/12/2016 In active warfarin 5 mg tablet RxNorm: 774734 TAKE 1 AND 1/2 TABLETS BY MOUTH ON AND WEDNESDAY. TAKE ONLY 1 TABLET BY MOUTH ALL OTHER DAYS OF THE WEEK 08/19/2015 01/05/2016 In active loratadine 10 mg tablet RxNorm: 649182 1 Tablet(s) PO daily 07/30/2015 07/23/2016 Inactive loratadine 10 mg tablet RxNorm: 358867 1 Tablet(s) PO daily 07/30/2015 07/29/2015 Inactive furosemide 40 mg tablet RxNorm: 761120 TAKE ONE TABLET BY MOUTH DAILY 06/24/2015 11/11/2015 In active levothyroxine 125 mc g tablet RxNorm: 267566 1 Tablet(s) PO daily 05/31/2015 05/24/2016 Inactive furosemide 40 mg tablet RxNorm: 045526 1 Tablet(s) PO daily 04/05/2015 06/23/2015 Inactive warfarin 5 mg tablet RxNorm: 830098 TAKE 1 AND 1/2 TABLETS BY MOUTH ON AND WEDNESDAY. TAKE ONLY 1 TABLET BY MOUTH ALL OTHER DAYS OF THE WEEK 02/12/2015 07/29/2015 In active Flonase Allergy Reli ef 50 mcg/actuation nasal spray,suspension RxNorm: 2 [place] NASAL daily 02/05/2015 03/06/2015 Inactive Kenalog 40 mg/mL zohra pension for injection RxNorm: 8436989 Milliliter(s) Inj 02/05/2015 02/05/2015 In active warfarin 5 mg tablet RxNorm: 632244 Take 7.5mg (1 1/2 tablets) Wednesday and and 1 Tablet(s) PO (5mg) all other days 01/11/2015 02/09/2015 Inactive levothyroxine 125 mc g tablet RxNorm: 040382 1 Tablet(s) PO every other day 01/01/2015 05/30/2015 In active alternate with 150 levothyroxine 150 mc g tablet RxNorm: 777956 1 Tablet(s) PO every other day 01/01/2015 05/30/2015 In active alternate with 125 loratadine 10 mg tablet RxNorm: 541705 Tablet(s) PO as needed No Start Date Active Fish Oil 1,000 mg ca psule RxNorm: 1 Capsule(s) PO TID No Start Date Active magnesium 250 mg tablet RxNorm: 1 Tablet(s) PO daily No Start Date Active Vitamin D3 2,000 uni t tablet RxNorm: 480708 2 Tablet(s) PO daily No Start Date Active Fosamax 35 mg tablet RxNorm: 822431 1 Tablet(s) PO QW No Start Date Active levothyroxine 125 mc g tablet RxNorm: 210240 1 Tablet(s) PO daily No Start Date 12/31/2014 Inactive levothyroxine 150 mc g tablet RxNorm: 565454 1 Tablet(s) PO daily No Start Date 12/31/2014 Inactive diltiazem 60 mg tablet RxNorm: 482912 1 Tablet(s) PO QID No Start Date 03/23/2018 Inactive meclizine 25 mg tablet RxNorm: 255453 1 Tablet(s) PO TID as needed Dizziness No Start Date 07/18/2018 Inactive furosemide 40 mg tablet RxNorm: 708403 1 Tablet(s) PO daily No Start Date 04/04/2015 Inactive potassium chloride RxNorm: miscellaneous No Start Date 11/19/2015 Inactive Vitamin D2 oral RxNorm: 4018 oral No Start Date 05/31/2015 Inactive warfarin 5 mg tablet RxNorm: 376203 1 Tablet(s) PO daily No Start Date 01/10/2015 Inactive Coumadin 4 mg tablet RxNorm: 224079 1 Tablet(s) PO Wed/ No Start Date 07/28/2017 Inactive Medication Administered Medication Codes Instruc tions Start Date Status ceftriaxone 500 mg solution for injection RxNorm: 9274438 10/27/2018 No longer A ctive ceftriaxone 500 mg solution for injection RxNorm: 3432930 07/22/2016 No longer A ctive Kenalog 40 mg/mL suspension for injection RxNorm: 4980599 Milliliter 07/22/2016 No longer Active Kenalog 40 mg/mL suspension for injection RxNorm: 3669291 Milliliter 02/05/2015 No longer Active Immunizations Vaccine [...] not specified ICD-10: N39.0 ICD-9: 599.0 12/05/2018 assisted (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 ICD-10: Z79.01 ICD-9: [...] 244.9 11/20/2014 ACTINIC KERATOSIS ICD-9: 702.0 11/20/2014 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 ICD-9: V58.61 [...] Code Item Item Code Result Date Pt Xmz7313 PT 23.6 seconds 01/06/2019 Pt Klr4144 INR 2.2 01/06/2019 Pt Gre6670 Low Intensity - 1.5-2.0 01/06/2019 Pt Adb5308 Mod intensity - 2.0-3.0 01/06/2019 Pt Bef0392 Hi intensity - 3.0-4.0 01/06/2019 Pt Efp9757 PT 23.8 seconds 12/09/2018 Pt Ync1250 INR 2.2 12/09/2018 Pt Soq4267 Low Intensity - 1.5-2.0 12/09/2018 Pt Qbt6149 Mod intensity - 2.0-3.0 12/09/2018 Pt Hsz5240 Hi intensity - 3.0-4.0 12/09/2018 Pt Son3526 PT 22.3 seconds 11/23/2018 Pt Cxh4928 INR 2.0 11/23/2018 Pt Xhx6004 Low Intensity - 1.5-2.0 11/23/2018 Pt Ijy9406 Mod intensity - 2.0-3.0 11/23/2018 Pt Fpe1093 Hi intensity - 3.0-4.0 11/23/2018 Pt Bcu6727 PT 18.0 seconds 11/14/2018 Pt Sxx1907 INR 1.5 11/14/2018 Pt Mpt4310 Low Intensity - 1.5-2.0 11/14/2018 Pt Uer2963 Mod intensity - 2.0-3.0 11/14/2018 Pt Wqs0229 Hi intensity - 3.0-4.0 11/14/2018 Pt Jjn5590 PT 17.3 seconds 11/03/2018 Pt Wsa1530 INR 1.5 11/03/2018 Pt Wev4344 Low Intensity - 1.5-2.0 11/03/2018 Pt Awv4620 Mod intensity - 2.0-3.0 11/03/2018 Pt Pkd0766 Hi intensity - 3.0-4.0 11/03/2018 Urine Culture Ucult Comp lete >100,000 col/ml aerobic grow th sent to ref lab 10/28/2018 Pt Brb7528 PT 24.4 seconds 10/24/2018 Pt Zth6871 INR 2.2 10/24/2018 Pt Tep3950 Low Intensity - 1.5-2.0 10/24/2018 Pt Aja0640 Mod intensity - 2.0-3.0 10/24/2018 Pt Oyg0697 Hi intensity - 3.0-4.0 10/24/2018 Lipid Ord30 CHOL 143 mg/dL 10/24/2018 Lipid Ord30 HDL 52.0 mg/dl 10/24/2018 Lipid Ord30 TRIG 78 mg/dL 10/24/2018 Lipid Ord30 LDL 75 mg/dL 10/24/2018 Lipid Ord30 C/HDL 2.8 Ratio 10/24/2018 Comp Metabolic Dzr424 NA 142 mEq/L 10/24/2018 Comp Metabolic Sbb956 K 4.6 mEq/L 10/24/2018 Comp Metabolic Ghc839 CL 107 mEq/L 10/24/2018 Comp Metabolic Kdr540 CO2 27.0 mEq/L 10/24/2018 Comp Metabolic Hfl225 AN ION GAP 13 10/24/2018 Comp Metabolic Mbw509 GL UCOSE 82 mg/dL 10/24/2018 Comp Metabolic Dnm928 Cr eat 1.1 mg/dL 10/24/2018 Comp Metabolic Dau250 eG FR 54 ml/min/1.73m2 10/24 Comp Metabolic Icj192 BUN 23 mg/dL 10/24/2018 Comp Metabolic Tlg798 B/ C Ratio 21.9 Ratio 10/24/2018 Comp Metabolic Ciq821 CA LCIUM 9.0 mg/dL 10/24/2018 Comp Metabolic Ggd897 AL K PHOS 64 U/L 10/24/2018 Comp Metabolic Tvo760 T(SGOT) 18 U/L 10/24/2018 Comp Metabolic Wmy446 AL T(SGPT) 14 U/L 10/24/2018 Comp Metabolic Ulc243 BI LI T 0.5 mg/dL 10/24/2018 Comp Metabolic Vwp448 AL BUMIN 3.0 g/dL 10/24/2018 Comp Metabolic Ljl757 TP RO 5.2 g/dL 10/24/2018 Comp Metabolic Ziz165 GL OB 2.2 g/dL 10/24/2018 Comp Metabolic Ozz763 A/ G Ratio 1.4 Ratio 10/24/2018 Comp Metabolic Xax336 Os mo 286 mOsmo 10/24/2018 Pt Tfw1787 PT 23.8 seconds 09/29/2018 Pt Hxw7311 INR 2.2 09/29/2018 Pt Fep0323 Low Intensity - 1.5-2.0 09/29/2018 Pt Xly9073 Mod intensity - 2.0-3.0 09/29/2018 Pt Rmv7253 Hi intensity - 3.0-4.0 09/29/2018 Pt Fll4042 PT 19.6 seconds 09/19/2018 Pt Onl5066 INR 1.7 09/19/2018 Pt Fsk7511 Low Intensity - 1.5-2.0 09/19/2018 Pt War5622 Mod intensity - 2.0-3.0 09/19/2018 Pt Exs9541 Hi intensity - 3.0-4.0 09/19/2018 Pt Rib2251 PT 16.8 seconds 09/12/2018 Pt Ikg4885 INR 1.4 09/12/2018 Pt Tkh1752 Low Intensity - 1.5-2.0 09/12/2018 Pt Ypn9253 Mod intensity - 2.0-3.0 09/12/2018 Pt Fbo4676 Hi intensity - 3.0-4.0 09/12/2018 Pt Kts7627 PT 13.1 seconds 09/07/2018 Pt Wbb6931 INR 1.0 09/07/2018 Pt Pfk5248 Low Intensity - 1.5-2.0 09/07/2018 Pt Jgh6587 Mod intensity - 2.0-3.0 09/07/2018 Pt Syi1403 Hi intensity - 3.0-4.0 09/07/2018 Pt Eco7923 PT 24.1 seconds 08/23/2018 Pt Pyz8027 INR 2.2 08/23/2018 Pt Qyf4295 Low Intensity - 1.5-2.0 08/23/2018 Pt Pxm0494 Mod intensity - 2.0-3.0 08/23/2018 Pt Lpt8058 Hi intensity - 3.0-4.0 08/23/2018 Pt Vqq2177 PT 30.9 seconds 08/16/2018 Pt Msa8391 INR 3.0 08/16/2018 Pt Mgc2969 Low Intensity - 1.5-2.0 08/16/2018 Pt Pyt2094 Mod intensity - 2.0-3.0 08/16/2018 Pt Hcd0454 Hi intensity - 3.0-4.0 08/16/2018 Pt Qth4947 PT 29.5 seconds 08/01/2018 Pt Sfe9697 INR 2.8 08/01/2018 Pt Icb2473 Low Intensity - 1.5-2.0 08/01/2018 Pt Jgn8843 Mod intensity - 2.0-3.0 08/01/2018 Pt Qfj7074 Hi intensity - 3.0-4.0 08/01/2018 Pt Vwv5120 PT 24.2 seconds 07/25/2018 Pt Mmb0084 INR 2.2 07/25/2018 Pt Rlv7312 Low Intensity - 1.5-2.0 07/25/2018 Pt Nuc6961 Mod intensity - 2.0-3.0 07/25/2018 Pt Enh9632 Hi intensity - 3.0-4.0 07/25/2018 Pt Elg3971 PT 38.6 seconds 07/19/2018 Pt Jnu2578 INR 4.0 07/19/2018 Pt Qex4799 Low Intensity - 1.5-2.0 07/19/2018 Pt Rld4542 Mod intensity - 2.0-3.0 07/19/2018 Pt Cod5430 Hi intensity - 3.0-4.0 07/19/2018 Pt Hwn4080 PT 25.7 seconds 07/11/2018 Pt Mif7965 INR 2.4 07/11/2018 Pt Ing8669 Low Intensity - 1.5-2.0 07/11/2018 Pt Tjf2678 Mod intensity - 2.0-3.0 07/11/2018 Pt Plk7843 Hi intensity - 3.0-4.0 07/11/2018 Pt Qwt9377 PT 18.5 seconds 07/08/2018 Pt Vbo0674 INR 1.6 07/08/2018 Pt Cha0470 Low Intensity - 1.5-2.0 07/08/2018 Pt Nlc8337 Mod intensity - 2.0-3.0 07/08/2018 Pt Cbc0583 Hi intensity - 3.0-4.0 07/08/2018 Pt Iih7835 PT 27.3 seconds 06/29/2018 Pt Rmi3770 INR 2.6 06/29/2018 Pt Cxl5696 Low Intensity - 1.5-2.0 06/29/2018 Pt Tty0766 Mod intensity - 2.0-3.0 06/29/2018 Pt Ouc9899 Hi intensity - 3.0-4.0 06/29/2018 Pt Wzj0278 PT 24.0 seconds 05/26/2018 Pt Cpy9485 INR 2.2 05/26/2018 Pt Uvy2898 Low Intensity - 1.5-2.0 05/26/2018 Pt Ttl9849 Mod intensity - 2.0-3.0 05/26/2018 Pt Lay3699 Hi intensity - 3.0-4.0 05/26/2018 Tsh Ord6 [...] 29.6 pg 03/25/2018 Cbc With Differential Ord2 [place]% 9.5 % 03/25/2018 Cbc With Differential Ord2 [...] 2.19 K/ul 03/25/2018 Cbc With Differential Ord2 [place] ABS# 0.8 K/ul 03/25/2018 Cbc With Differential Ord2 Eos ABS# 0.3 K/ul 03/25/2018 Cbc With Differential Ord2 Baso ABS# 0.0 K/ul 03/25/2018 Lipid Ord30 CHOL 156 mg/dL 03/25/2018 Lipid Ord30 HDL 52.0 mg/dl 03/25/2018 Lipid Ord30 TRIG 98 mg/dL 03/25/2018 Lipid Ord30 LDL 84 mg/dL 03/25/2018 Lipid Ord30 C/HDL 3.0 Ratio 03/25/2018 Free T4 Olg424 FREE T4 1.73 ng/dL 03/25/2018 Comp Metabolic Ngv964 NA 143 mEq/L 03/25/2018 Comp Metabolic Axe142 K 4.6 mEq/L 03/25/2018 Comp Metabolic Kvp785 CL 108 mEq/L 03/25/2018 Comp Metabolic Snr751 CO2 26.0 mEq/L 03/25/2018 Comp Metabolic Hfb802 AN ION GAP 14 03/25/2018 Comp Metabolic Qnl100 GL UCOSE 87 mg/dL 03/25/2018 Comp Metabolic Jsa272 Cr eat 1.2 mg/dL 03/25/2018 Comp Metabolic Ydu236 eG FR 48 ml/min/1.73m2 03/25 Comp Metabolic Mij180 BUN 18 mg/dL 03/25/2018 Comp Metabolic Yop640 B/ C Ratio 15.5 Ratio 03/25/2018 Comp Metabolic Toh118 CA LCIUM 9.1 mg/dL 03/25/2018 Comp Metabolic Wpj356 AL K PHOS 58 U/L 03/25/2018 Comp Metabolic Vji299 T(SGOT) 21 U/L 03/25/2018 Comp Metabolic Hvv125 AL T(SGPT) 13 U/L 03/25/2018 Comp Metabolic Bff197 BI LI T 0.7 mg/dL 03/25/2018 Comp Metabolic Gee946 AL BUMIN 3.2 g/dL 03/25/2018 Comp Metabolic Llz615 TP RO 5.5 g/dL 03/25/2018 Comp Metabolic Whb372 GL OB 2.3 g/dL 03/25/2018 Comp Metabolic Rpn974 A/ G Ratio 1.4 Ratio 03/25/2018 Comp Metabolic Wnm085 Os mo 286 mOsmo 03/25/2018 Pt Ycr6761 PT 29.0 seconds 03/22/2018 Pt Zvt2107 INR 2.7 03/22/2018 Pt Tnr2986 Low Intensity - 1.5-2.0 03/22/2018 Pt Ize9862 Mod intensity - 2.0-3.0 03/22/2018 Pt Run3366 Hi intensity - 3.0-4.0 03/22/2018 Pt Cvc5297 PT 27.1 seconds 02/25/2018 Pt Sie9241 INR 2.5 02/25/2018 Pt Nmo7417 Low Intensity - 1.5-2.0 02/25/2018 Pt Fzh5965 Mod intensity - 2.0-3.0 02/25/2018 Pt Ctq1952 Hi intensity - 3.0-4.0 02/25/2018 Pt Bbe4924 PT 26.1 seconds 01/26/2018 Pt Dmj0497 INR 2.4 01/26/2018 Pt Ypf7105 Low Intensity - 1.5-2.0 01/26/2018 Pt Ilx4337 Mod intensity - 2.0-3.0 01/26/2018 Pt Ypg3585 Hi intensity - 3.0-4.0 01/26/2018 Pt Umw6357 PT 22.8 seconds 12/24/2017 Pt Deb0430 INR 2.0 12/24/2017 Pt Ayt1545 Low Intensity - 1.5-2.0 12/24/2017 Pt Kov1338 Mod intensity - 2.0-3.0 12/24/2017 Pt Ibh8096 Hi intensity - 3.0-4.0 12/24/2017 Pt Gie2266 PT 29.4 seconds 11/18/2017 Pt Kmr9521 INR 2.8 11/18/2017 Pt Ivm7565 Low Intensity - 1.5-2.0 11/18/2017 Pt Jtn3402 Mod intensity - 2.0-3.0 11/18/2017 Pt Msw2139 Hi intensity - 3.0-4.0 11/18/2017 Pt Tsv7196 PT 26.6 seconds 09/13/2017 Pt Pps9886 INR 2.4 09/13/2017 Pt Jaj4203 Low Intensity - 1.5-2.0 09/13/2017 Pt Ere6869 Mod intensity - 2.0-3.0 09/13/2017 Pt Cye7186 Hi intensity - 3.0-4.0 09/13/2017 Pt Fgv1915 PT 28.2 seconds 08/10/2017 Pt Qlr8280 INR 2.6 08/10/2017 Pt Ljw4097 Low Intensity - 1.5-2.0 08/10/2017 Pt Htp0898 Mod intensity - 2.0-3.0 08/10/2017 Pt Hto8843 Hi intensity - 3.0-4.0 08/10/2017 Pt Mie0255 PT 33.9 seconds 07/27/2017 Pt Tlh1093 INR 3.3 07/27/2017 Pt Vuy2689 Low Intensity - 1.5-2.0 07/27/2017 Pt Umk3790 Mod intensity - 2.0-3.0 07/27/2017 Pt Jki9758 Hi intensity - 3.0-4.0 07/27/2017 Pt Bam1349 PT 29.1 seconds 06/29/2017 Pt Zir3877 INR 2.7 06/29/2017 Pt Xcl5008 Low Intensity - 1.5-2.0 06/29/2017 Pt Cfg7382 Mod intensity - 2.0-3.0 06/29/2017 Pt Bjv8741 Hi intensity - 3.0-4.0 06/29/2017 Pt Pvk1904 PT 30.3 seconds 06/11/2017 Pt Zkx3299 INR 2.9 06/11/2017 Pt Mqm9989 Low Intensity - 1.5-2.0 06/11/2017 Pt Gvz1761 Mod intensity - 2.0-3.0 06/11/2017 Pt Jpz9270 Hi intensity - 3.0-4.0 06/11/2017 Pt Xke2916 PT 39.1 seconds 06/07/2017 Pt Gip8299 INR 3.9 06/07/2017 Pt Qaw5899 Low Intensity - 1.5-2.0 06/07/2017 Pt Osl0032 Mod intensity - 2.0-3.0 06/07/2017 Pt Naf0825 Hi intensity - 3.0-4.0 06/07/2017 Pt Oyl1851 PT 34.2 seconds 05/26/2017 Pt Klu1186 INR 3.3 05/26/2017 Pt Fxm0844 Low Intensity - 1.5-2.0 05/26/2017 Pt Fir4074 Mod intensity - 2.0-3.0 05/26/2017 Pt Fvu3941 Hi intensity - 3.0-4.0 05/26/2017 Comp Metabolic Wfx603 NA 138 mEq/L 04/23/2017 Comp Metabolic Fxz150 K 4.2 mEq/L 04/23/2017 Comp Metabolic Vax023 CL 101 mEq/L 04/23/2017 Comp Metabolic Oda922 CO2 28.0 mEq/L 04/23/2017 Comp Metabolic Gfd976 AN ION GAP 13 04/23/2017 Comp Metabolic Qkb507 GL UCOSE 89 mg/dL 04/23/2017 Comp Metabolic Exs837 Cr eat 1.1 mg/dL 04/23/2017 Comp Metabolic Qlo925 eG FR 51 ml/min/1.73m2 04/23 Comp Metabolic Sdl731 BUN 26 mg/dL 04/23/2017 Comp Metabolic Yhk526 B/ C Ratio 23.9 Ratio 04/23/2017 Comp Metabolic Vcb674 CA LCIUM 9.4 mg/dL 04/23/2017 Comp Metabolic Nnl987 AL K PHOS 95 U/L 04/23/2017 Comp Metabolic Zta124 T(SGOT) 18 U/L 04/23/2017 Comp Metabolic Hzb477 AL T(SGPT) 17 U/L 04/23/2017 Comp Metabolic Gwy285 BI LI T 0.7 mg/dL 04/23/2017 Comp Metabolic Gsg514 AL BUMIN 3.2 g/dL 04/23/2017 Comp Metabolic Ute408 TP RO 5.6 g/dL 04/23/2017 Comp Metabolic Wdj860 GL OB 2.4 g/dL 04/23/2017 Comp Metabolic Knf505 A/ G Ratio 1.3 Ratio 04/23/2017 Comp Metabolic Tir553 Os mo 280 mOsmo 04/23/2017 Pt Xtp6391 PT 28.6 seconds 04/23/2017 Pt Kxx2610 INR 2.7 04/23/2017 Pt Tbn8574 Low Intensity - 1.5-2.0 04/23/2017 Pt Wqu9249 Mod intensity - 2.0-3.0 04/23/2017 Pt Hri2980 Hi intensity - 3.0-4.0 04/23/2017 Pt Dot2396 PT 24.4 seconds 03/16/2017 Pt Ymt2221 INR 2.2 03/16/2017 Pt Muk5566 Low Intensity - 1.5-2.0 03/16/2017 Pt Vir7367 Mod intensity - 2.0-3.0 03/16/2017 Pt Qsl4077 Hi intensity - 3.0-4.0 03/16/2017 Pt Hct8181 PT 28.2 seconds 02/24/2017 Pt Asq7453 INR 2.6 02/24/2017 Pt Vkx1970 Low Intensity - 1.5-2.0 02/24/2017 Pt Zuf5915 Mod intensity - 2.0-3.0 02/24/2017 Pt Qwo3352 Hi intensity - 3.0-4.0 02/24/2017 Pt Ojx7347 PT 26.8 seconds 02/08/2017 Pt Kto0212 INR 2.5 02/08/2017 Pt Rdm7460 Low Intensity - 1.5-2.0 02/08/2017 Pt Uvi8383 Mod intensity - 2.0-3.0 02/08/2017 Pt Pod8181 Hi intensity - 3.0-4.0 02/08/2017 Lipid Ord30 CHOL 150 mg/dL 01/25/2017 Lipid Ord30 HDL 55.0 mg/dl 01/25/2017 Lipid Ord30 TRIG 66 mg/dL 01/25/2017 Lipid Ord30 LDL 82 mg/dL 01/25/2017 Lipid Ord30 C/HDL 2.7 Ratio 01/25/2017 Pt Als4296 PT 29.9 seconds 01/25/2017 Pt Jhb0391 INR 2.8 01/25/2017 Pt Aph2108 Low Intensity - 1.5-2.0 01/25/2017 Pt Fmi8909 Mod intensity - 2.0-3.0 01/25/2017 Pt Ktf7690 Hi intensity - 3.0-4.0 01/25/2017 Comp Metabolic Bdj084 NA 143 mEq/L 01/25/2017 Comp Metabolic Kve992 K 3.9 mEq/L 01/25/2017 Comp Metabolic Gci355 CL 108 mEq/L 01/25/2017 Comp Metabolic Icz554 CO2 23.0 mEq/L 01/25/2017 Comp Metabolic Lxe353 AN ION GAP 16 01/25/2017 Comp Metabolic Yqy092 GL UCOSE 80 mg/dL 01/25/2017 Comp Metabolic Syq294 Cr eat 1.0 mg/dL 01/25/2017 Comp Metabolic Mco920 eG FR 57 ml/min/1.73m2 01/25 Comp Metabolic Gdz023 BUN 25 mg/dL 01/25/2017 Comp Metabolic Qco481 B/ C Ratio 25.0 Ratio 01/25/2017 Comp Metabolic Xmw021 CA LCIUM 8.5 mg/dL 01/25/2017 Comp Metabolic Lns327 AL K PHOS 81 U/L 01/25/2017 Comp Metabolic Ywx122 T(SGOT) 19 U/L 01/25/2017 Comp Metabolic Ahi661 AL T(SGPT) 23 U/L 01/25/2017 Comp Metabolic Eoe961 BI LI T 0.5 mg/dL 01/25/2017 Comp Metabolic Wwz881 AL BUMIN 2.9 g/dL 01/25/2017 Comp Metabolic Frq029 TP RO 5.1 g/dL 01/25/2017 Comp Metabolic Wuf565 GL OB 2.2 g/dL 01/25/2017 Comp Metabolic Lvo586 A/ G Ratio 1.3 Ratio 01/25/2017 Comp Metabolic Vyb207 Os mo 288 mOsmo 01/25/2017 Cbc With [...] 30.7 pg 01/25/2017 Cbc With Differential Ord2 [place]% 8.2 % 01/25/2017 Cbc With Differential Ord2 [...] 3.10 K/ul 01/25/2017 Cbc With Differential Ord2 [place] ABS# 0.8 K/ul 01/25/2017 Cbc With Differential Ord2 Eos ABS# 0.4 K/ul 01/25/2017 Cbc With Differential Ord2 Baso ABS# 0.1 K/ul 01/25/2017 Free T4 Pzg491 FREE T4 2.09 ng/dL 01/25/2017 Tsh Ord6 hTSH II 0.46 uIU/mL 01/25/2017 Pt Yzo0870 PT 26.1 seconds 11/26/2016 Pt Dfo9201 INR 2.6 11/26/2016 Pt Skh6391 Low Intensity - 1.5-2.0 11/26/2016 Pt Uek8777 Mod intensity - 2.0-3.0 11/26/2016 Pt Wng0108 Hi intensity - 3.0-4.0 11/26/2016 Pt Rrn6828 PT 26.2 seconds 10/29/2016 Pt Gne4543 INR 2.6 10/29/2016 Pt Dnq7805 Low Intensity - 1.5-2.0 10/29/2016 Pt Wcp1578 Mod intensity - 2.0-3.0 10/29/2016 Pt Rld0089 Hi intensity - 3.0-4.0 10/29/2016 Pt Rmc1519 PT 20.8 seconds 10/13/2016 Pt Yrf9522 INR 1.9 10/13/2016 Pt Whb4872 Low Intensity - 1.5-2.0 10/13/2016 Pt Wac4880 Mod intensity - 2.0-3.0 10/13/2016 Pt Zxn3249 Hi intensity - 3.0-4.0 10/13/2016 Pt Eep0305 PT 26.5 seconds 10/01/2016 Pt Zwl0176 INR 2.6 10/01/2016 Pt Qot4253 Low Intensity - 1.5-2.0 10/01/2016 Pt Arv6802 Mod intensity - 2.0-3.0 10/01/2016 Pt Gep7240 Hi intensity - 3.0-4.0 10/01/2016 Pt Wjj3249 PT 24.6 seconds 09/14/2016 Pt Gcz2689 INR 2.4 09/14/2016 Pt Ohf7464 Low Intensity - 1.5-2.0 09/14/2016 Pt Iij0284 Mod intensity - 2.0-3.0 09/14/2016 Pt Gzf7496 Hi intensity - 3.0-4.0 09/14/2016 Pt Nhm9165 PT 18.0 seconds 09/07/2016 Pt Nil6656 INR 1.6 09/07/2016 Pt Jkk8808 Low Intensity - 1.5-2.0 09/07/2016 Pt Cqc3920 Mod intensity - 2.0-3.0 09/07/2016 Pt Gdu4224 Hi intensity - 3.0-4.0 09/07/2016 Pt Jtn5508 PT 23.7 seconds 08/12/2016 Pt Lhc1935 INR 2.2 08/12/2016 Pt Gma8575 Low Intensity - 1.5-2.0 08/12/2016 Pt Thw2581 Mod intensity - 2.0-3.0 08/12/2016 Pt Hzy8304 Hi intensity - 3.0-4.0 08/12/2016 Pt Qgv8248 PT 21.6 seconds 07/27/2016 Pt Qbk1619 INR 2.0 07/27/2016 Pt Ctl0557 Low Intensity - 1.5-2.0 07/27/2016 Pt Lxi1564 Mod intensity - 2.0-3.0 07/27/2016 Pt Tlr1467 Hi intensity - 3.0-4.0 07/27/2016 Pt Zwi5766 PT 26.0 seconds 06/15/2016 Pt Yfn7199 INR 2.5 06/15/2016 Pt Cdk0731 Low Intensity - 1.5-2.0 06/15/2016 Pt Zuj4701 Mod intensity - 2.0-3.0 06/15/2016 Pt Lat7699 Hi intensity - 3.0-4.0 06/15/2016 Pt Mzr0583 PT 18.8 seconds 06/01/2016 Pt Snm4122 INR 1.7 06/01/2016 Pt Mtj7813 Low Intensity - 1.5-2.0 06/01/2016 Pt Mhz8605 Mod intensity - 2.0-3.0 06/01/2016 Pt Ibz1210 Hi intensity - 3.0-4.0 06/01/2016 Pt Nus7619 PT 20.8 seconds 05/12/2016 Pt Hsp2455 INR 1.9 05/12/2016 Pt Rpl9825 Low Intensity - 1.5-2.0 05/12/2016 Pt Ngj2095 Mod intensity - 2.0-3.0 05/12/2016 Pt Xuc9711 Hi intensity - 3.0-4.0 05/12/2016 Pt Epg9839 PT 24.5 seconds 04/10/2016 Pt Etd8981 INR 2.4 04/10/2016 Pt Lel1146 Low Intensity - 1.5-2.0 04/10/2016 Pt Kcn4390 Mod intensity - 2.0-3.0 04/10/2016 Pt Nkh9198 Hi intensity - 3.0-4.0 04/10/2016 Pt Szd1661 PT 26.4 seconds 03/10/2016 Pt Fhc6998 INR 2.6 03/10/2016 Pt Kyg5640 Low Intensity - 1.5-2.0 03/10/2016 Pt Lsr6472 Mod intensity - 2.0-3.0 03/10/2016 Pt Mmn5600 Hi intensity - 3.0-4.0 03/10/2016 Pt Rrd4632 PT 24.9 seconds 03/06/2016 Pt Yin2224 INR 2.4 03/06/2016 Pt Muj5881 Low Intensity - 1.5-2.0 03/06/2016 Pt Xsy2448 Mod intensity - 2.0-3.0 03/06/2016 Pt Cym0027 Hi intensity - 3.0-4.0 03/06/2016 Pt Kki4388 PT 21.9 seconds 02/25/2016 Pt Qbm6245 INR 2.0 02/25/2016 Pt Jdk7391 Low Intensity - 1.5-2.0 02/25/2016 Pt Hbs1024 Mod intensity - 2.0-3.0 02/25/2016 Pt Tan1195 Hi intensity - 3.0-4.0 02/25/2016 Pt Csn2788 PT 21.8 seconds 02/21/2016 Pt Iwz5250 INR 2.0 02/21/2016 Pt Hye0333 Low Intensity - 1.5-2.0 02/21/2016 Pt Xjp4857 Mod intensity - 2.0-3.0 02/21/2016 Pt Fym2831 Hi intensity - 3.0-4.0 02/21/2016 Culture Urine [id number] URI NE CULTURE SEE NOTES 02/20/2016 Culture Urine [id number] Con tinued Results 02/20/2016 Urine Culture Ucult [...] 29.2 pg 02/14/2016 Cbc With Differential Ord2 [place]% 9.3 % 02/14/2016 Cbc With Differential Ord2 [...] 2.55 K/ul 02/14/2016 Cbc With Differential Ord2 [place] ABS# 0.8 K/ul 02/14/2016 Cbc With Differential Ord2 Eos ABS# 0.4 K/ul 02/14/2016 Cbc With Differential Ord2 Baso ABS# 0.1 K/ul 02/14/2016 Tsh Ord6 hTSH II 0.80 uIU/mL 02/14/2016 Pt Dyw0061 PT 27.1 seconds 02/14/2016 Pt Itm1620 INR 2.7 02/14/2016 Pt Epl2465 Low Intensity - 1.5-2.0 02/14/2016 Pt Pqb2923 Mod intensity - 2.0-3.0 02/14/2016 Pt Tnb7461 Hi intensity - 3.0-4.0 02/14/2016 Free T4 Osw779 FREE T4 1.87 ng/dL 02/14/2016 Comp Metabolic Keg336 NA 139 mEq/L 02/14/2016 Comp Metabolic Ilc292 K 3.8 mEq/L 02/14/2016 Comp Metabolic Oiq106 CL 103 mEq/L 02/14/2016 Comp Metabolic Uhg839 CO2 27.0 mEq/L 02/14/2016 Comp Metabolic Whs925 AN ION GAP 13 02/14/2016 Comp Metabolic Mbk435 GL UCOSE 91 mg/dL 02/14/2016 Comp Metabolic Lek143 Cr eat 1.0 mg/dL 02/14/2016 Comp Metabolic Eeq818 eG FR 58 ml/min/1.73m2 02/13 Comp Metabolic Slh484 BUN 16 mg/dL 02/14/2016 Comp Metabolic Ycn780 B/ C Ratio 16.2 Ratio 02/14/2016 Comp Metabolic Eak499 CA LCIUM 9.0 mg/dL 02/14/2016 Comp Metabolic Pki073 AL K PHOS 88 U/L 02/14/2016 Comp Metabolic Uep739 T(SGOT) 17 U/L 02/14/2016 Comp Metabolic Iab892 AL T(SGPT) 12 U/L 02/14/2016 Comp Metabolic Raf521 BI LI T 0.6 mg/dL 02/14/2016 Comp Metabolic Lnb138 AL BUMIN 3.2 g/dL 02/14/2016 Comp Metabolic Neh339 TP RO 5.8 g/dL 02/14/2016 Comp Metabolic Ccj478 GL OB 2.6 g/dL 02/14/2016 Comp Metabolic Zim768 A/ G Ratio 1.3 Ratio 02/14/2016 Comp Metabolic Qbk666 Os mo 278 mOsmo 02/14/2016 Pt Pzn8650 PT 34.6 seconds 02/06/2016 Pt Uab9453 INR 3.7 02/06/2016 Pt Mye4076 Low Intensity - 1.5-2.0 02/06/2016 Pt Bnb1804 Mod intensity - 2.0-3.0 02/06/2016 Pt Yhd1844 Hi intensity - 3.0-4.0 02/06/2016 Pt Ufc4459 PT 33.3 seconds 01/23/2016 Pt Bid8298 INR 3.5 01/23/2016 Pt Jby3515 Low Intensity - 1.5-2.0 01/23/2016 Pt Umi7623 Mod intensity - 2.0-3.0 01/23/2016 Pt Gpt8584 Hi intensity - 3.0-4.0 01/23/2016 Pt Yyf8815 PT 30.5 seconds 12/31/2015 Pt Vny5778 INR 3.2 12/31/2015 Pt Xrx1359 Low Intensity - 1.5-2.0 12/31/2015 Pt Jie7159 Mod intensity - 2.0-3.0 12/31/2015 Pt Vhs7340 Hi intensity - 3.0-4.0 12/31/2015 Pt Ujc9062 PT 35.6 seconds 12/25/2015 Pt Yyg0407 INR 3.9 12/25/2015 Pt Mdw5747 Low Intensity - 1.5-2.0 12/25/2015 Pt Gdy1324 Mod intensity - 2.0-3.0 12/25/2015 Pt Mnr3244 Hi intensity - 3.0-4.0 12/25/2015 Pt Bwo4146 PT 30.8 seconds 11/21/2015 Pt Eci2903 INR 3.2 11/21/2015 Pt Kbc0229 Low Intensity - 1.5-2.0 11/21/2015 Pt Qgi2475 Mod intensity - 2.0-3.0 11/21/2015 Pt Vpo0355 Hi intensity - 3.0-4.0 11/21/2015 Uric Acid [...] 30.0 pg 11/20/2015 Cbc With Differential Ord2 [place]% 8.1 % 11/20/2015 Cbc With Differential Ord2 [...] 2.51 K/ul 11/20/2015 Cbc With Differential Ord2 [place] ABS# 0.9 K/ul 11/20/2015 Cbc With Differential Ord2 Eos ABS# 0.3 K/ul 11/20/2015 Cbc With Differential Ord2 Baso ABS# 0.0 K/ul 11/20/2015 Comp Metabolic Bdu838 NA 137 mEq/L 10/22/2015 Comp Metabolic Guy527 K 3.9 mEq/L 10/22/2015 Comp Metabolic Iks263 CL 100 mEq/L 10/22/2015 Comp Metabolic Gby702 CO2 31.0 mEq/L 10/22/2015 Comp Metabolic Ivo948 AN ION GAP 10 10/22/2015 Comp Metabolic Ydj540 GL UCOSE 94 mg/dL 10/22/2015 Comp Metabolic Gjq120 Cr eat 1.0 mg/dL 10/22/2015 Comp Metabolic Qne671 eG FR 55 ml/min/1.73m2 10/21 Comp Metabolic Geb473 BUN 19 mg/dL 10/22/2015 Comp Metabolic Acj157 B/ C Ratio 18.3 Ratio 10/22/2015 Comp Metabolic Asc525 CA LCIUM 8.8 mg/dL 10/22/2015 Comp Metabolic Nno130 AL K PHOS 83 U/L 10/22/2015 Comp Metabolic Wir883 T(SGOT) 15 U/L 10/22/2015 Comp Metabolic Buy073 AL T(SGPT) 13 U/L 10/22/2015 Comp Metabolic Vft657 BI LI T 0.9 mg/dL 10/22/2015 Comp Metabolic Ghd167 AL BUMIN 2.8 g/dL 10/22/2015 Comp Metabolic Pfy871 TP RO 5.4 g/dL 10/22/2015 Comp Metabolic Mcu643 GL OB 2.6 g/dL 10/22/2015 Comp Metabolic Aie238 A/ G Ratio 1.1 Ratio 10/22/2015 Comp Metabolic Zcp226 Os mo 276 mOsmo 10/22/2015 Bili D Ord93 BILI D 0.1 mg/dL 10/22/2015 Bili D Ord93 BILI I 0.8 mg/dL 10/22/2015 Pt Zgb0976 PT 22.8 seconds 10/22/2015 Pt Kza3739 INR 2.1 10/22/2015 Pt Tde7151 Low Intensity - 1.5-2.0 10/22/2015 Pt Luq6876 Mod intensity - 2.0-3.0 10/22/2015 Pt Otu2431 Hi intensity - 3.0-4.0 10/22/2015 Pt Fmo6584 PT 28.0 seconds 09/16/2015 Pt Yss3735 INR 2.7 09/16/2015 Pt Ego0597 Low Intensity - 1.5-2.0 09/16/2015 Pt Omw8685 Mod intensity - 2.0-3.0 09/16/2015 Pt Nmj3910 Hi intensity - 3.0-4.0 09/16/2015 Tsh Ord6 hTSH II 1.40 uIU/mL 09/16/2015 Free T4 Zas809 FREE T4 1.73 ng/dL 09/16/2015 Lipid Ord30 CHOL 169 mg/dL 09/16/2015 Lipid Ord30 HDL 66.0 mg/dl 09/16/2015 Lipid Ord30 TRIG 78 mg/dL 09/16/2015 Lipid Ord30 LDL 87 mg/dL 09/16/2015 Lipid Ord30 C/HDL 2.6 Ratio 09/16/2015 Pt Iug7632 PT 26.6 seconds 08/21/2015 Pt Lqt1303 INR 2.6 08/21/2015 Pt Kaw8487 Low Intensity - 1.5-2.0 08/21/2015 Pt Ysc4262 Mod intensity - 2.0-3.0 08/21/2015 Pt Xby4244 Hi intensity - 3.0-4.0 08/21/2015 Comp Metabolic Zvy430 NA 141 mEq/L 08/08/2015 Comp Metabolic Cvq061 K 3.3 mEq/L 08/08/2015 Comp Metabolic Cjg326 CL 102 mEq/L 08/08/2015 Comp Metabolic Sgk673 CO2 31.0 mEq/L 08/08/2015 Comp Metabolic Tuz894 AN ION GAP 11 08/08/2015 Comp Metabolic Ucp932 GL UCOSE 83 mg/dL 08/08/2015 Comp Metabolic Doy195 Cr eat 1.0 mg/dL 08/08/2015 Comp Metabolic Sad611 eG FR 55 ml/min/1.73m2 08/08 Comp Metabolic Ckd644 BUN 19 mg/dL 08/08/2015 Comp Metabolic Anc920 B/ C Ratio 18.3 Ratio 08/08/2015 Comp Metabolic Nel452 CA LCIUM 8.9 mg/dL 08/08/2015 Comp Metabolic Ycy216 AL K PHOS 84 U/L 08/08/2015 Comp Metabolic Kkr046 T(SGOT) 20 U/L 08/08/2015 Comp Metabolic Cbn832 AL T(SGPT) 18 U/L 08/08/2015 Comp Metabolic Mjz249 BI LI T 0.6 mg/dL 08/08/2015 Comp Metabolic Odw182 AL BUMIN 3.3 g/dL 08/08/2015 Comp Metabolic Peh361 TP RO 5.9 g/dL 08/08/2015 Comp Metabolic Xkf654 GL OB 2.6 g/dL 08/08/2015 Comp Metabolic Hwt132 A/ G Ratio 1.3 Ratio 08/08/2015 Comp Metabolic Puw758 Os mo 283 mOsmo 08/08/2015 Cbc With [...] 30.0 pg 08/08/2015 Cbc With Differential Ord2 [place]% 8.2 % 08/08/2015 Cbc With Differential Ord2 [...] 2.90 K/ul 08/08/2015 Cbc With Differential Ord2 [place] ABS# 0.9 K/ul 08/08/2015 Cbc With Differential [...] Ord93 BILI I 0.5 mg/dL 08/08/2015 Pt Yfm6112 PT 31.8 seconds 08/05/2015 Pt Fnv4997 INR 3.2 08/05/2015 Pt Knf4830 Low Intensity - 1.5-2.0 08/05/2015 Pt Wsf1878 Mod intensity - 2.0-3.0 08/05/2015 Pt Keu6410 Hi intensity - 3.0-4.0 08/05/2015 Pt Kds7030 PT 27.4 seconds 06/27/2015 Pt Sfd5726 INR 2.6 06/27/2015 Pt Gvo7067 Low Intensity - 1.5-2.0 06/27/2015 Pt Ayx9423 Mod intensity - 2.0-3.0 06/27/2015 Pt Npg7338 Hi intensity - 3.0-4.0 06/27/2015 Tsh Ord6 [...] Ord2 RDW 15.1 % 05/31/2015 Free T4 Nwn833 FREE T4 1.89 ng/dL 05/31/2015 Comp Metabolic Chq762 NA 140 mEq/L 05/31/2015 Comp Metabolic Qoi428 K 3.3 mEq/L 05/31/2015 Comp Metabolic Jbt303 CL 99 mEq/L 05/31/2015 Comp Metabolic Owi744 CO2 30.0 mEq/L 05/31/2015 Comp Metabolic Yul446 AN ION GAP 14 05/31/2015 Comp Metabolic Kbs421 GL UCOSE 70 mg/dL 05/31/2015 Comp Metabolic Umd209 Cr eat 1.0 mg/dL 05/31/2015 Comp Metabolic Uix669 eG FR 55 ml/min/1.73m2 05/31 Comp Metabolic Ntx134 BUN 23 mg/dL 05/31/2015 Comp Metabolic Fxn977 B/ C Ratio 22.1 Ratio 05/31/2015 Comp Metabolic Yni907 CA LCIUM 8.9 mg/dL 05/31/2015 Comp Metabolic Ers986 AL K PHOS 86 U/L 05/31/2015 Comp Metabolic Eta442 T(SGOT) 28 U/L 05/31/2015 Comp Metabolic Mlc706 AL T(SGPT) 30 U/L 05/31/2015 Comp Metabolic Wwx360 BI LI T 0.4 mg/dL 05/31/2015 Comp Metabolic Axn661 AL BUMIN 3.3 g/dL 05/31/2015 Comp Metabolic Fis266 TP RO 6.0 g/dL 05/31/2015 Comp Metabolic Xqn656 GL OB 2.7 g/dL 05/31/2015 Comp Metabolic Jak061 A/ G Ratio 1.2 Ratio 05/31/2015 Comp Metabolic Wst389 Os mo 282 mOsmo 05/31/2015 Pt Kpp2893 PT 23.3 seconds 04/15/2015 Pt Gun9024 INR 2.2 04/15/2015 Pt Sgi7967 Low Intensity - 1.5-2.0 04/15/2015 Pt Zzm4096 Mod intensity - 2.0-3.0 04/15/2015 Pt Pdi1102 Hi intensity - 3.0-4.0 04/15/2015 Pt Ttb9756 PT 19.5 seconds 04/04/2015 Pt Ilj6444 INR 1.7 04/04/2015 Pt Lnd5060 Low Intensity - 1.5-2.0 04/04/2015 Pt Unq5549 Mod intensity - 2.0-3.0 04/04/2015 Pt Fnq3049 Hi intensity - 3.0-4.0 04/04/2015 Pt Xtr8888 PT 39.8 seconds 04/01/2015 Pt Qkj5107 INR 4.3 04/01/2015 Pt Iea0901 Low Intensity - 1.5-2.0 04/01/2015 Pt Plj0511 Mod intensity - 2.0-3.0 04/01/2015 Pt Gmb3582 Hi intensity - 3.0-4.0 04/01/2015 Metabolic Ord15 [...] Metabolic Ord15 CALCIUM 8.7 mg/dL 02/28/2015 Pt Twr1934 PT 31.4 seconds 02/28/2015 Pt Ldz3253 INR 3.2 02/28/2015 Pt Bme0957 Low Intensity - 1.5-2.0 02/28/2015 Pt Rvo6719 Mod intensity - 2.0-3.0 02/28/2015 Pt Nxc7534 Hi intensity - 3.0-4.0 02/28/2015 Pt Edg7742 PT 23.2 seconds 01/18/2015 Pt Smp8198 INR 2.1 01/18/2015 Pt Zqk4632 Low Intensity - 1.5-2.0 01/18/2015 Pt Vat2988 Mod intensity - 2.0-3.0 01/18/2015 Pt Zbn8701 Hi intensity - 3.0-4.0 01/18/2015 Pt Tgs1119 PT 18.2 seconds 01/10/2015 Pt Qgs2785 INR 1.6 01/10/2015 Pt Ixy6589 Low Intensity - 1.5-2.0 01/10/2015 Pt Lyh6302 Mod intensity - 2.0-3.0 01/10/2015 Pt Bkv3743 Hi intensity - 3.0-4.0 01/10/2015 Review of [...] clear 12/05/2018 None Full Exam - General 1995 Ears/Nose/Throat otoscopic exam Overall: tympanic membranes clear 12/05/2018 None Full Exam - General 1995 Ears/Nose/Throat lips/teeth/gingiva Overall: benign lips 12/05/2018 None Full Exam - General 1995 Ears/Nose/Throat lips/teeth/gingiva Overall: normal dentition 12/05/2018 None Full Exam - General 1995 Ears/Nose/Throat lips/teeth/gingiva Overall: benign gingiva 12/05/2018 None [...] dentition 03/24/2018 None Full Exam - General 1995 Ears/Nose/Throat lips/teeth/gingiva Overall: benign gingiva 03/24/2018 None [...] Date URINALYSIS NONAUTO W /O SCOPE CPT-4: 30154 01/10/2019 URINALYSIS NONAUTO W /O SCOPE CPT-4: 12305 12/05/2018 ROCEPHIN, PER 250 MG CPT-4: J0696 10/27/2018 URINALYSIS NONAUTO W /O SCOPE CPT-4: 53819 10/27/2018 ADMIN INFLUENZA VIRU S VAC CPT-4: G0008 03/24/2018 ADMIN PNEUMOCOCCAL V ACCINE SNOMED CT: 76461229 CPT-4: G0009 03/24/2018 FLU VACC PRSV FREE I NC ANTIG Formatting Model/CDA Sections, Assigned to/Dorothea Tan CPT-4: 32266Sytyvxv 03/24/2018 Pneumococcal Polysac charide Vaccine, 23-Valent, Ad CPT-4: 13524 03/24/2018 TRIAMCINOLONE ACET I [place] NOS CPT-4: J3301 06/15/2017 THER/PROPH/DIAG INJ SC/IM CPT-4: 46662 06/15/2017 ADMIN PNEUMOCOCCAL V ACCINE SNOMED CT: 55610722 CPT-4: G0009 03/16/2017 ADMIN INFLUENZA VIRU S VAC CPT-4: G0008 03/16/2017 FLU VAC NO PRSV 4 VA L 3 YRS+ CPT-4: 76449 03/16/2017 PNEUMOCOCCAL VACC [address]: 40580702 CPT-4: 89357 03/16/2017 URINALYSIS NONAUTO W /O SCOPE CPT-4: 26877 08/26/2016 THER/PROPH/DIAG INJ SC/IM CPT-4: 47475 07/22/2016 TRIAMCINOLONE ACET I [place] NOS CPT-4: J3301 07/22/2016 ROCEPHIN, PER 250 MG CPT-4: J0696 07/22/2016 TRIAMCINOLONE ACET I [place] NOS CPT-4: J3301 02/05/2015 Vital Signs Date Vital 01/10/2019 BMI: 32.9 Code: 71632-0 Heart Rate 1: 74 bpm Height: 5'7" Weight: 210 lbs 12/05/2018 Blood Pressure 1: 132/70 Code: 8480-6 BMI: 32.4 Code: 55246-7 Heart Rate 1: 84 bpm Height: 5'7" SpO2: 91% Weight: 207 lbs 11/17/2018 Blood Pressure 1: 102/62 Code: 8480-6 BMI: 32.4 Code: 15487-1 Heart Rate 1: 83 bpm Height: 5'7" SpO2: 94% Weight: 207 lbs 10/27/2018 Blood Pressure 1: 120/74 Code: 8480-6 BMI: 32.4 Code: 34406-9 Heart Rate 1: 65 bpm Height: 5'7" SpO2: 97% Weight: 207 lbs 09/27/2018 Blood Pressure 1: 128/74 Code: 8480-6 BMI: 32.4 Code: 74554-2 Heart Rate 1: 92 bpm Height: 5'7" SpO2: 97% Weight: 207 lbs 08/16/2018 Blood Pressure 1: 104/66 Code: 8480-6 BMI: 32.3 Code: 07876-0 Heart Rate 1: 94 bpm Height: 5'7" SpO2: 96% Weight: 206 lbs 07/11/2018 Blood Pressure 1: 102/68 Code: 8480-6 BMI: 34.5 Code: 23242-5 Heart Rate 1: 101 bpm Height: 5'7" SpO2: 98% Weight: 220 lbs 03/24/2018 Blood Pressure 1: 130/72 Code: 8480-6 BMI: 33.4 Code: 50847-8 Heart Rate 1: 82 bpm Height: 5'7" SpO2: 93% Weight: 213 lbs 11/18/2017 Blood Pressure 1: 128/70 Code: 8480-6 BMI: 33.6 Code: 43887-3 Heart Rate 1: 98 bpm Height: 5'7" SpO2: 97% Weight: 214 lbs 8 oz 09/30/2017 Blood Pressure 1: 100/50 Code: 8480-6 BMI: 34.0 Code: 61041-4 Heart Rate 1: 66 bpm Height: 5'7" SpO2: 96% Weight: 217 lbs 08/17/2017 Blood Pressure 1: 104/60 Code: 8480-6 BMI: 33.7 Code: 48889-1 Heart Rate 1: 99 bpm Height: 5'7" SpO2: 97% Weight: 215 lbs 06/15/2017 Blood Pressure 1: 120/64 Code: 8480-6 BMI: 33.5 Code: 45879-0 Heart Rate 1: 91 bpm Height: 5'7" SpO2: 94% Weight: 214 lbs 04/01/2017 Blood Pressure 1: 110/68 Code: 8480-6 BMI: 154.4 Code: 84656-1 Heart Rate 1: 66 bpm Height: 2'7" SpO2: 95% Weight: 211 lbs 03/16/2017 Blood Pressure 1: 130/72 Code: 8480-6 BMI: 33.0 Code: 07854-7 Heart Rate 1: 95 bpm Height: 5'7" SpO2: 97% Weight: 211 lbs 02/09/2017 Blood Pressure 1: 120/70 Code: 8480-6 BMI: 32.9 Code: 58142-1 Heart Rate 1: 78 bpm Height: 5'7" SpO2: 96% Weight: 210 lbs 10/13/2016 Blood Pressure 1: 118/76 Code: 8480-6 BMI: 32.6 Code: 27753-3 Heart Rate 1: 97 bpm Height: 5'7" SpO2: 98% Weight: 208 lbs 07/31/2016 Blood Pressure 1: 110/64 Code: 8480-6 BMI: 32.1 Code: 14583-6 Heart Rate 1: 79 bpm Height: 5'7" SpO2: 94% Weight: 205 lbs 07/22/2016 Blood Pressure 1: 108/74 Code: 8480-6 BMI: 32.1 Code: 70865-9 Heart Rate 1: 71 bpm Height: 5'7" SpO2: 97% Temperature: 36.9 (C ) / 98.4 (F) Weight: 205 lbs 05/01/2016 Blood Pressure 1: 120/72 Code: 8480-6 BMI: 32.7 Code: 11944-6 Heart Rate 1: 75 bpm Height: 5'7" SpO2: 94% Weight: 209 lbs 04/06/2016 Blood Pressure 1: 106/62 Code: 8480-6 BMI: 32.7 Code: 83376-3 Heart Rate 1: 83 bpm Height: 5'7" SpO2: 97% Weight: 209 lbs 03/06/2016 Blood Pressure 1: 112/68 Code: 8480-6 BMI: 32.7 Code: 18289-2 Heart Rate 1: 90 bpm Height: 5'7" SpO2: 97% Weight: 209 lbs 03/03/2016 Blood Pressure 1: 120/62 Code: 8480-6 BMI: 32.7 Code: 13932-4 Heart Rate 1: 92 bpm Height: 5'7" SpO2: 98% Weight: 209 lbs 02/07/2016 Blood Pressure 1: 110/64 Code: 8480-6 BMI: 32.7 Code: 66222-5 Heart Rate 1: 87 bpm Height: 5'7" SpO2: 97% Weight: 209 lbs 12/13/2015 Blood Pressure 1: 110/64 Code: 8480-6 BMI: 33.5 Code: 07693-1 Heart Rate 1: 90 bpm Height: 5'7" SpO2: 97% Weight: 214 lbs 12/03/2015 Blood Pressure 1: 132/76 Code: 8480-6 BMI: 33.4 Code: 56807-6 Heart Rate 1: 82 bpm Height: 5'7" SpO2: 99% Weight: 213 lbs 11/20/2015 Blood Pressure 1: 108/68 Code: 8480-6 BMI: 32.4 Code: 92238-1 Heart Rate 1: 77 bpm Height: 5'7" SpO2: 97% Weight: 207 lbs 09/17/2015 Blood Pressure 1: 122/76 Code: 8480-6 BMI: 33.0 Code: 60427-1 Heart Rate 1: 91 bpm Height: 5'7" SpO2: 97% Weight: 211 lbs 05/31/2015 Blood Pressure 1: 128/82 Code: 8480-6 BMI: 33.4 Code: 16258-1 Heart Rate 1: 98 bpm Height: 5'7" SpO2: 99% Weight: 213 lbs 02/05/2015 Blood Pressure 1: 128/80 Code: 8480-6 BMI: 32.6 Code: 44589-9 Heart Rate 1: 86 bpm Height: 5'7" SpO2: 97% Weight: 208 lbs 11/20/2014 Blood Pressure 1: 128/90 Code: 8480-6 BMI: 30.9 Code: 49257-8 Heart Rate 1: 94 bpm Height: 5'7" [...] ongoing 11/20/2015 None Hospital Follow Up _ Oth er: fall 09/17/2015 None Hospital Follow Up [...] Findings Denies fever 05/31/2015 None 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 PATIENT, LEVEL III Diagnosis: Dysuria[ICD10: R30.0] [facility] CPT-4: 79563 01/10/2019 ([id number]) [id number] EST. P ATIENT, LEVEL III Diagnosis: Urinary tract infection, site not specified[ICD10: N39.0] Brielle Pisano MD, [facility] CPT-4: 41821 12/05/2018 ([id number]) 32552 EST. P ATIENT, LEVEL III Diagnosis: Contusion of right lower leg, initial encounter[ICD10: S80.11XA] Diagnosis: assisted (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[ICD10: Z79.01] Brielle Pisano MD, [facility] CPT-4: 59396 11/17/2018 ([id number]) 83610 EST. P ATIENT, LEVEL III Diagnosis: Urinary tract infection, site not specified[ICD10: N39.0] Brielle Pisano MD, [facility] CPT-4: 18427 10/27/2018 ([id number]) 93487 EST. 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 P ATIENT, LEVEL IV Diagnosis: Essential (primary) hypertension[ICD10: I10] Diagnosis: Atrophy of thyroid (acquired)[ICD10: E03.4] Diagnosis: Sebaceous cyst[ICD10: L72.3] Diagnosis: Chronic atrial fibrillation[ICD10: I48.2] Diagnosis: assisted (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[ICD10: Z79.01] Valerie Pisano MD, [facility] CPT-4: 02364 08/16/2018 ([id number]) [id number] EST. P ATIENT, LEVEL IV Diagnosis: Atrophy of thyroid (acquired)[ICD10: E03.4] Diagnosis: Essential (primary) hypertension[ICD10: I10] Diagnosis: Other fatigue[ICD10: R53.83] Diagnosis: Localized edema[ICD10: R60.0] Valerie Pisano MD, [facility] CPT-4: 06557 07/11/2018 ([id number]) 17929 EST. P ATIENT, LEVEL IV Diagnosis: Essential (primary) hypertension[ICD10: I10] Diagnosis: Atrophy of thyroid (acquired)[ICD10: E03.4] Diagnosis: Chronic atrial fibrillation[ICD10: I48.2] Valerie Pisano MD, [facility] CPT-4: 48028 03/24/2018 ([id number]) 33552 EST. P ATIENT, LEVEL IV Diagnosis: Essential (primary) hypertension[ICD10: I10] Diagnosis: Atrophy of thyroid (acquired)[ICD10: E03.4] Diagnosis: Chronic atrial fibrillation[ICD10: I48.2] Valerie Pisano MD, [facility] CPT-4: 74280 11/18/2017 79031 EST. PATIENT, LEVEL IV Diagnosis: Localized edema[ICD10: R60.0] Roxie Pisano MD, [facility] CPT-4: 07596 09/30/2017 ([id number]) 89452 EST. P ATIENT, LEVEL III Diagnosis: Essential (primary) hypertension[ICD10: I10] Valerie Pisano MD, [facility] CPT-4: 81043 08/17/2017 ([id number]) 96715 EST. P ATIENT, LEVEL IV Diagnosis: Essential (primary) hypertension[ICD10: I10] Diagnosis: Atrophy of thyroid (acquired)[ICD10: E03.4] Diagnosis: Chronic atrial fibrillation[ICD10: I48.2] Diagnosis: Cervicalgia[ICD10: M54.2] Diagnosis: Other muscle spasm[ICD10: M62.838] Valerie Pisano MD, [facility] CPT- 4: 57088 06/15/2017 29759 EST. PATIENT, LEVEL III Diagnosis: Laceration without foreign body of other finger without damage to nail, initial encounter[ICD10: S61.218A] Roxie Pisano MD, [facility] CPT-4: 44656 04/01/2017 ([id number]) 65699 EST. 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 P ATIENT, LEVEL IV Diagnosis: Chronic atrial fibrillation[ICD10: I48.2] Diagnosis: Essential (primary) hypertension[ICD10: I10] Diagnosis: Other fatigue[ICD10: R53.83] Diagnosis: assisted (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[ICD10: Z79.01] Diagnosis: Atrophy of thyroid (acquired)[ICD10: E03.4] Valerie Pisano MD, C CPT-4: 35348 02/09/2017 ([id number]) 14663 EST. [facility]: Essential (primary) hypertension[ICD10: I10] Diagnosis: Chronic atrial fibrillation[ICD10: I48.2] Diagnosis: Tinea corporis[ICD10: B35.4] Diagnosis: assisted (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[ICD10: Z79.01] Diagnosis: Other skin changes[ICD10: R23.8] Valerie Pisaon MD, [facility] CPT-4: 49083 10/13/2016 28778 EST. PATIENT, LEVEL III Diagnosis: Other acute sinusitis[ICD10: J01.80] Diagnosis: Other allergic rhinitis[ICD10: J30.89] Roxie Pisano MD, [facility] CPT-4: 88184 07/31/2016 ([id number]) 66423 EST. [facility] Diagnosis: Acute recurrent maxillary sinusitis[ICD10: J01.01] Valerie Pisano MD, C CPT-4: 85740 07/22/2016 73843 EST. PATIENT, LEVEL IV Diagnosis: Essential (primary) hypertension[ICD10: I10] Diagnosis: Other allergic rhinitis[ICD10: J30.89] Diagnosis: Localized edema[ICD10: R60.0] Roxie Pisano MD, [facility] CPT-4: 81346 05/01/2016 71608 EST. PATIENT, LEVEL III Diagnosis: Cellulitis of left lower limb[ICD10: L03.116] Diagnosis: Localized edema[ICD10: R60.0] Roxie Pisano MD, [facility] CPT-4: 67329 04/06/2016 ([id number]) Miscellaneou s no charge Diagnosis: Cellulitis of left lower limb[ICD10: L03.116] Diagnosis: Localized edema[ICD10: R60.0] Roxie Pisano MD, [facility] CPT-4: 54830 03/10/2016 ([id number]) Miscellaneou s no charge Diagnosis: Cellulitis of left lower limb[ICD10: L03.116] Roxie Pisano MD, [facility] CPT-4: 29933 03/06/2016 32103 EST. PATIENT, LEVEL IV Diagnosis: Cellulitis of left lower limb[ICD10: L03.116] Diagnosis: Localized edema[ICD10: R60.0] Roxie Pisano MD, [facility] CPT-4: 21674 03/03/2016 ([id number]) 95334 EST. P ATIENT, LEVEL III Diagnosis: Essential (primary) hypertension[ICD10: I10] Diagnosis: assisted (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[ICD10: Z79.01] Diagnosis: Chronic atrial fibrillation[ICD10: I48.2] Brielle Pisano MD, [facility] CPT-4: 35245 02/07/2016 ([id number]) 44764 EST. P ATIENT, LEVEL III Diagnosis: Iliotibial band syndrome, right leg[ICD10: M76.31] Diagnosis: Localized edema[ICD10: R60.0] Brielle Pisano MD, [facility] CPT- 4: 90547 12/13/2015 ([id number]) 49934 EST. P ATIENT, LEVEL III Diagnosis: Localized edema[ICD10: R60.0] Diagnosis: Essential (primary) hypertension[ICD10: I10] Brielle Pisano MD, [facility] CPT-4: 18424 12/03/2015 ([id number]) 71674 EST. P ATIENT, LEVEL IV Diagnosis: 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[ICD10: Z79.01] Diagnosis: Other skin changes[ICD10: R23.8] Diagnosis: Localized edema[ICD10: R60.0] Diagnosis: Pain in right foot[ICD10: M79.671] Valerie Pisano MD, [facility] CPT- 4: 27708 11/20/2015 30981 EST. PATIENT, LEVEL IV Diagnosis: Essential (primary) hypertension[ICD10: I10] Diagnosis: assisted (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[ICD10: Z79.01] Diagnosis: Muscle spasm of back[ICD10: M62.830] [facility] CPT- 4: 00411 09/17/2015 ([id number]) 10110 EST. P ATIENT, LEVEL IV Diagnosis: Localized edema[ICD10: R60.0] Diagnosis: Other specified hypothyroidism[ICD10: E03.8] Diagnosis: Essential (primary) hypertension[ICD10: I10] [facility] CPT-4: 09801 05/31/2015 ([id number]) 03464 EST. P ATIENT, LEVEL III Diagnosis: ALLERGIC RHINITIS[ICD9: 477.9] Diagnosis: ESSENTIAL HYPERTENSION[ICD9: 401.9] Brielle Pisano MD, [facility] CPT-4: 55840 02/05/2015 ([id number]) OFFICE VISI , [facility] - LEVEL 4 Diagnosis: ESSENTIAL HYPERTENSION[ICD9: 401.9] Diagnosis: HYPOTHYROIDISM[ICD9: 244.9] Diagnosis: ACTINIC KERATOSIS[ICD9: 702.0] Valerie Pisano MD, [facility] CPT-4: 49763 11/20/2014 Plan of Care Planned Activity Notes C odes Status Date Visit Plan: Dysuria - negative UA - pt is to increase her fluid intake and notify clinic if symptoms do not improve, if they worsen, or with any other changes, questions, or concerns. 01/10/2019 Patient Education: Patient Medication Summary Completed 01/10/2019 Visit Plan: UTI - pt with positive urinalysis - culture sent if appropriate. Antibiotic electronically prescribed to pt's pharmacy of choice. Pt to call if symptoms do not improve. 12/05/2018 Appointment: Brielle Cavazos WPtel: [address] [place], [place] [phone] (30 min) Complex 12/05/2018 Patient Education: Patient Medication Summary Completed 12/05/2018 Care Plan: Urine Culture Pending 12/05/2018 Visit Plan: Contusion -right lower leg -continue to monitor symptoms -call if does not resolve or other symptoms develop. Patient verbalized understanding of plan. watermelon inspector use of anti coagulants -check PT/INR 11/17/2018 Appointment: Brielle Cavazos WPtel: [phone] [phone] (30 min) Complex 11/17/2018 Patient Education: Patient Medication Summary Completed 11/17/2018 Visit Plan: UTI - pt with positive urinalysis - culture sent if appropriate. Antibiotic electronically prescribed to pt's pharmacy of choice. Pt to call if symptoms do not improve. 10/27/2018 Appointment: [phone] [phone] (10 min) Simple 10/27/2018 Patient [...] her appt with Dr. Hernandez. 09/27/2018 Appointment: NorrisValerie WPtel: [address] [place], [place] [id number] (15 min) Moderate 09/27/2018 Patient Education: Patient [...] decrease coumadin to 4mg daily. 08/16/2018 Appointment: NorrisValerie WPtel: [address] [place], [place] [phone] (15 min) Moderate 08/16/2018 Patient Education: Patient Medication Summary Completed 08/16/2018 Patient Education: Hypertension Completed 08/16/2018 Patient Education: Patient Medication Summary Completed 07/29/2018 Appointment: Brielle Cavazos WPtel: [phone] [place] (15 min) Moderate [...] daily. 07/11/2018 Appointment: Valerie Pisano WPtel: [phone] [facility] (15 min) Moderate 07/11/2018 Patient Education: Patient [...] given today. 03/24/2018 Appointment: [phone] (15 min) Moderate 03/24/2018 Patient Education: Patient [...] of control. 11/18/2017 Appointment: Valerie Pisano WPtel: [phone] [facility] (15 min) Moderate 11/18/2017 Patient Education: Patient Medication Summary Completed 11/18/2017 Referral: [facility] WPtel: [address] [place], [place] [phone] Pt notified at appointment Appointment Confirmed 10/01/2017 [...] Unna Boots 09/30/2017 Appointment: Roxie Cazares WPtel: [facility] (30 min) Complex 09/30/2017 Patient Education: Patient Medication Summary Completed 09/30/2017 Care Plan: Referral Order SNOMED-CT : [id number] Pending 09/30/2017 Visit Plan: Hypertension - well [...] this time. 08/17/2017 Appointment: Val[facility] Pisano [phone] (15 min) Moderate 08/17/2017 Patient Education: Patient [...] neck muscles. allergies - kenalog 40mg im [employer] - lot # [id number] expires september 2018 06/15/2017 Visit Plan: Hypertension [...] neck muscles. 06/15/2017 Appointment: Valerie Pisano [facility]el[phone] [place] (15 min) Moderate 06/15/2017 Patient Education: Patient Medication Summary Completed 06/15/2017 Care Plan: Referral Order SNOMED-CT : [id number] Pending 06/15/2017 Appointment: Nurse Visit 04/05/2017 Appointment: [...] tetanus booster. 04/01/2017 Appointment: Roxie Cazares WPtel: [phone] [facility] (15 min) Moderate 04/01/2017 [...] shot today 03/16/2017 Appointment: Valerie Pisano [facility]Ptel[phone] [place] (15 min) Moderate 03/16/2017 Patient Education: Patient [...] allergy spray. 02/09/2017 Appointment: Valerie Pisano [facility]Ptel[phone] (15 min) Moderate 02/09/2017 Patient Education: Patient Medication Summary Completed 02/09/2017 Patient Education: Obesity Completed 02/09/2017 Patient Education: Hypertension Completed 02/09/2017 Patient Education: Patient Medication Summary Completed 01/25/2017 Visit Plan: Hypertension - well con maicoed - continue with current medications, continue with [...] nystatin 10/13/2016 Appointment: Valerie Pisano [facility]Ptel[phone] (15 min) Moderate 10/13/2016 Patient Education: Patient Medication Summary Completed 10/13/2016 Patient Education: Obesity Completed 10/13/2016 Patient Education: Hypertension Completed 10/13/2016 Care Plan: Urine Culture Pending 08/31/2016 Appointment: Roxie Cazares WPtel: [phone] [facility] Lab Draw 08/27/2016 Appointment: Nurse Visit [...] allergy spray. 07/31/2016 Appointment: Brielle Cavazos WPtel: [phone] [phone] (30 min) Complex 07/31/2016 Patient Education: Patient Medication Summary Completed 07/31/2016 Patient Education: Obesity Completed 07/31/2016 Visit Plan: Sinusitis - Pt has acut e infection - pain in face, maxillary region, Pt informed to use decongestant, RX given to patient, sinus rinses also recommended. Call if symptoms do not show improvement. 07/22/2016 Appointment: Valerie Pisano WPtel: [phone] [facility] (15 min) Moderate 07/22/2016 Patient Education: Patient [...] edema. 05/01/2016 Appointment: Brielle Cavazos WPtel: [phone] [phone] (30 min) Complex 05/01/2016 [...] edema. 04/06/2016 Appointment: Roxie Cazares WPtel: [phone] [facility] (30 min) Complex 04/06/2016 Patient Education: Patient Medication Summary Completed 04/06/2016 Patient Education: Obesity Completed 04/06/2016 Visit Plan: left foot - improved - pt finished with antibiotics - continue to monitor - notify clinic with any concerns. Repeat INR today. 03/10/2016 Appointment: Brielle Cavazos WPtel: [phone] [phone] (30 min) Complex 03/10/2016 Patient Education: Patient Medication Summary Completed 03/10/2016 Visit Plan: Cellulitis - continue w ith oral antibiotics as previously directed, return to clinic as previously directed, call for acute change in symptoms, worsening redness, warmth, discharge. 03/06/2016 Appointment: Brielle Cavazos WPtel: [facility]8 [phone] (15 min) Moderate 03/06/2016 Patient Education: Patient Medication Summary Completed 03/06/2016 Patient Education: Obesity Completed 03/06/2016 Visit Plan: Cellulitis - continue w ith oral antibiotics as previously directed, return to clinic as previously directed, call for acute change in symptoms, worsening redness, warmth, discharge. 03/03/2016 Appointment: Brielle Cavazos WPtel: [phone] (15 min) Moderate 03/03/2016 [...] and 3.5. 02/07/2016 Appointment: Brielle Cavazos WPtel: [facility]2 [phone] (30 min) Complex 02/07/2016 Patient Education: Patient Medication Summary Completed 02/07/2016 Patient Education: Obesity Completed 02/07/2016 Patient Education: Hypertension Completed 02/07/2016 Appointment: Brielle Cavazos WPtel: [phone] (30 min) Complex 02/04/2016 Visit Plan: Iliotibial [...] edema. 12/13/2015 Appointment: Brielle Cavazos WPtel: [phone] [phone] (15 min) Moderate 12/13/2015 Patient Education: Patient [...] at home. 12/03/2015 Appointment: Brielle Cavazos WPtel: [facility]5 [phone] (30 min) Complex 12/03/2015 [...] Hypertension Completed 02/05/2015 Appointment: Valerie Pisano WPtel: [facility]5 [facility] (15 min) Moderate 01/29/2015 Visit Plan: Hypertension [...] of control. 11/20/2014 Appointment: Valerie Pisano WPtel: [facility] [place] ([place]) New Patient 11/20/2014 Patient Education: Patient Medication Summary Completed 11/20/2014 Patient Education: Hypertension Completed 11/20/2014 Patient Education: Patient Medication Summary Completed 10/19/2014 Referral: [facility] WPtel: Referral Appointment Requested Referral: [facility] WPtel: [address] [id number] Referral Appointment Confirmed Instructions Comment . UTI [...] readings at home. . left foot - impro ed - pt finished with antibiotics - [...] twice daily. get blood work one w [place] before next appt - fasting labs Decrease [...] physical therapy - will refer to [facility] physical therapy. RX for voltaren to neck muscles. allergies - kenalog 40mg im [employer] - lot # [id number] expires september 2018 . Hypertension - wel [...] physical therapy - will refer to [facility] physical therapy. RX for voltaren to neck [...] further attempt to reduce peripheral edema. [facility] or david while on the levaquin. Increase [...] symptoms develop. Patient verbalized understanding of plan. watermelon inspector use of anti coagulants -check PT/INR . [...]
--- OUTSIDE RECORDS SUMMARY | 2019-09-12 10:50 | XMS REPORT | CCD ---
Author Author Clara Pisano Organization Valerie Pisano MD, [facility] Address [address] [place] [address] Phone Care Team Providers Care Regional Facilities Manager Name Role Phone PP Unavailable CCM Unavailable Summary Purpose Interface Exchange Insurance Providers Payer name Policy type / Coverage type Covered libertarian ID Effective Begin Date Effective End Date WPS Medicare Part B Medicare Part B [id number] 2018 Unknown [employer] Medicare Part B [id number] 2018 Unknown Family history Sister Diagnosis Age At Onset defect Unknown Breast cancer Unknown Daughter Diagnosis Age At Onset Breast cancer Unknown Mother Diagnosis Age At Onset No Family Disease Entered N/A Social History Social History Element Codes Description Effective Dates Marital status Unknown M arried Lane 11/20/2014 Number of children Unknown 6 11/20/2014 Employment Unknown Retir ed 11/20/[address]: 6591046 Quit over 10 years ago 1963 11/20/2014 [...] ICD-9: 924.4 ICD-10: S80.11XA 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/2018 Unknown custodial (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 ICD-9: V58.61 ICD-10: [...] Unknown HYPOTHYROIDISM ICD-9: 244.9 Active 11/19/2014 Unknown custodial current us 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 therapy ICD-9: V58.61 Active 10/19/2014 Unknown Problems Condition Codes Effectiv e Dates Condition Status Dysuria ICD-9: 788.1 ICD-10: R30.0 08/26/2016 Active Urinary tract infect ion, site not specified ICD-9: 599.0 ICD-10: N39.0 02/13/2016 Active Contusion of right l ower leg, initial encounter ICD-9: 924.4 ICD-10: S80.11XA 11/17/2018 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 ICD-9: V58.61 ICD-10: [...] 11/19/2014 Active HYPOTHYROIDISM ICD-9: 244.9 11/19/2014 Active 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 ICD-9: V58.61 10/19/2014 Active Medications Medication Codes Instruc tions Start Date Stop Date Sta Fill Instructions Pyridium 200 mg tablet RxNorm: 4647220 1 Tablet(s) PO TID PRN 12/05/2018 No Stop Date Active Keflex 500 mg capsule RxNorm: 791304 1 Capsule(s) PO TID 12/05/2018 12/11/2018 Inactive Keflex 500 mg capsule RxNorm: 636413 1 Capsule(s) PO TID 11/17/2018 11/21/2018 Inactive doxycycline hyclate 100 mg capsule RxNorm: 6485152 1 Capsule(s) PO BID 10/31/2018 10/30/2018 In active doxycycline hyclate 100 mg capsule RxNorm: 7315199 1 Capsule(s) PO BID 10/31/2018 11/06/2018 In active Keflex 500 mg capsule RxNorm: 445267 1 Capsule(s) PO TID 10/27/2018 10/30/2018 Inactive ceftriaxone 500 mg s olution for injection RxNorm: 9382137 Inj 10/27/2018 10/27/2018 Inactive Coumadin 4 mg tablet RxNorm: 689409 1 Tablet(s) PO daily 08/16/2018 08/10/2019 Active this is an update to her RX - she will l et you know when she needs refill triamcinolone aceton sreekanth 0.025 % topical cream RxNorm: 5289688 1 Application TOP QI D 08/16/2018 No Stop Date Active levothyroxine 125 mc g tablet RxNorm: 404884 TAKE ONE TABLET BY [facility] DAILY ON WEDNESDAY, WED, AND WEDNESDAY, AND 1/2 TABLET ON ., , WED AND CYRIL. TAKE ON AN EMPTY STOMACH 08/04/2018 04/30/2019 Active meclizine 25 mg tablet RxNorm: 678714 1 Tablet(s) PO TID as needed Dizziness 07/22/2018 No Stop Date Active meclizine 25 mg tablet RxNorm: 265344 1 Tablet(s) PO TID as needed Dizziness 07/19/2018 07/21/2018 In active furosemide 40 mg tablet RxNorm: 139830 1 Tablet(s) BID take 1.5 tabs twice a da y x 7 days then 1 pill daily thereafter 07/11/2018 02/05/2019 Active Coumadin 4 mg tablet RxNorm: 930071 1 Tablet(s) PO daily except 1.5 pills on WEDNESDAY AND Wednesday07/11/2018 08/15/2018 Inactive this is an update to her RX - she will let you know when she needs refill warfarin 5 mg tablet RxNorm: 855323 Tablet(s) TAKE ONE TABLET BY MOUTH DAILY EXCEPT / TAKE 4 MG 04/06/2018 08/22/2019 Active diltiazem 60 mg tablet RxNorm: 996190 1/2 Tablet(s) PO QID 03/24/2018 No Stop Date Active levothyroxine 125 mc g tablet RxNorm: 076537 TAKE ONE TABLET BY [facility] DAILY ON WEDNESDAY, WED, AND WEDNESDAY, AND 1/2 TABLET ON , , WED AND WEDNESDAY. TAKE ON AN EMPTY STOMACH 02/02/2018 07/31/2018 Inactive Coumadin 4 mg tablet RxNorm: 206233 TAKE ONE TABLET BY MOUTH DAILY ON AND Wednesday10/14/2017 07/10/2018 Inactive nystatin 100,000 uni t/gram topical cream RxNorm: 831439 1 Application TOP TID 08/17/2017 No Stop Date Active Voltaren 1 % topical gel RxNorm: 554181 2 Gram(s) TOP TID luiz ly to shoulder and neck 08/17/2017 No Stop Date Active triamcinolone aceton sreekanth 0.025 % topical cream RxNorm: 3005260 1 Application TOP BI D 08/17/2017 08/15/2018 In active levothyroxine 125 mc g tablet RxNorm: 712677 1 Tablet(s) UD 1 pill wed/wed/wed, 1/2 pill //sat/sun take ON AN EMPTY STOMACH 08/05/2017 02/01/2018 Inactive Coumadin 4 mg tablet RxNorm: 336573 1 Tablet(s) PO Wed/07/29/2017 10/13/2017 Inactive warfarin 5 mg tablet RxNorm: 748577 TAKE 1 AND 1/2 TABLETS BY MOUTH ON AND WEDNESDAY. TAKE ONLY 1 TABLET BY MOUTH ALL OTHER DAYS OF THE WEEK 07/12/2017 04/05/2018 In active furosemide 40 mg tablet RxNorm: 151220 Tablet(s) BID TAKE ONE TABLET BY MOUTH D AILY 06/15/2017 07/10/2018 Inactive Voltaren 1 % topical gel RxNorm: 216996 2 Gram(s) TOP TID luiz ly to shoulder and neck 06/15/2017 08/16/2017 Inactive Keflex 500 mg capsule RxNorm: 692700 1 Capsule(s) PO TID 04/01/2017 04/07/2017 Inactive furosemide 40 mg tablet RxNorm: 852763 TAKE ONE TABLET BY MOUTH DAILY 03/18/2017 06/14/2017 In active Claritin-D 12 Hour 5 mg-120 mg tablet,extended release RxNorm: 2172738 1 Tablet(s) PO BID 03/16/2017 05/14/2017 Inactive Lipitor 20 mg tablet RxNorm: 748983 1 Tablet(s) PO daily 02/09/2017 03/10/2017 Inactive lisinopril 2.5 mg ta blet RxNorm: 203237 1 Tablet(s) PO daily 02/09/2017 03/10/2017 Inactive Nasonex 50 mcg/actua tion [place] RxNorm: 6984491 1 [place] NASAL BID 02/09/2017 09/06/2017 Inactive levothyroxine 125 mc g tablet RxNorm: 237873 1 Tablet(s) UD 1 pill wed/wed/wed, 1/2 pill //sat/sun take ON AN EMPTY STOMACH 02/09/2017 08/04/2017 Inactive fluorouracil 5 % top ical cream RxNorm: 187094 1 Application TOP BID 02/09/2017 02/18/2017 Inactive potassium chloride E R 20 mEq tablet,extended release RxNorm: 286890 Tablet(s) TAKE ONE TABLET BY MOUTH DAILY 02/08/2017 02/02/2018 Inactive warfarin 5 mg tablet RxNorm: 154929 TAKE 1 AND 1/2 TABLETS BY MOUTH ON AND WEDNESDAY. TAKE ONLY 1 TABLET BY MOUTH ALL OTHER DAYS OF THE WEEK 12/14/2016 05/30/2017 In active potassium chloride E R 20 mEq tablet,extended release RxNorm: 051808 TAKE ONE TABLET BY MOUTH DAILY 10/29/2016 01/26/2017 Inactive warfarin 5 mg tablet RxNorm: 559436 TAKE 1 AND 1/2 TABLETS BY MOUTH ON AND WEDNESDAY. TAKE ONLY 1 TABLET BY MOUTH ALL OTHER DAYS OF THE WEEK 10/27/2016 12/13/2016 In active nystatin 100,000 uni t/gram topical cream RxNorm: 330773 1 Application TOP TID 10/13/2016 08/16/2017 In active nitrofurantoin 50 mg capsule RxNorm: 553803 1 Capsule(s) PO BID 09/04/2016 09/03/2016 Inactive nitrofurantoin macro crystal 50 mg capsule RxNorm: 701627 1 Capsule(s) PO BID 09/04/2016 09/10/2016 In active Cipro 500 mg tablet RxNorm: 847427 1 Tablet(s) PO BID 08/26/2016 10/12/2016 Inactive Zyrtec 10 mg tablet RxNorm: 5641773 1 Tablet(s) PO daily 07/31/2016 08/29/2016 Inactive prednisone 20 mg tablet RxNorm: 547991 2 Tablet(s) PO daily 07/31/2016 08/02/2016 Inactive Kenalog 40 mg/mL zohra pension for injection RxNorm: 3937235 Milliliter(s) Inj 07/22/2016 07/22/2016 In active ceftriaxone 500 mg s olution for injection RxNorm: 0154812 Inj 07/22/2016 07/22/2016 Inactive Flonase Allergy Reli ef 50 mcg/actuation nasal spray,suspension RxNorm: 1173256 1 [place] NASAL BID 07/22/2016 08/20/2016 Inactive azithromycin 250 mg tablet RxNorm: 096652 2 Tablet(s) PO on day #1, then 1 pill daily x 4 days 07/22/2016 10/12/2016 Inactive warfarin 5 mg tablet RxNorm: 378159 TAKE 1 AND 1/2 TABLETS BY MOUTH ON AND WEDNESDAY. TAKE ONLY 1 TABLET BY MOUTH ALL OTHER DAYS OF THE WEEK 07/09/2016 09/30/2016 In active levothyroxine 125 mc g tablet RxNorm: 115817 Tablet(s) TAKE ONE TA BLET BY MOUTH DAILY ON AN EMPTY STOMACH 06/23/2016 02/08/2017 Inactive levothyroxine 125 mc g tablet RxNorm: 665768 TAKE ONE TABLET BY MO [facility] DAILY ON AN EMPTY STOMACH 06/23/2016 06/22/2016 Inactive levothyroxine 125 mc g tablet RxNorm: 143923 TAKE ONE TABLET BY MO U[facility] DAILY ON AN EMPTY STOMACH 06/23/2016 08/04/2017 Inactive cetirizine 10 mg tablet RxNorm: 6216592 TAKE ONE TABLET BY MOUTH DAILY 06/16/2016 10/13/2016 In active furosemide 40 mg tablet RxNorm: 105641 Tablet(s) TAKE ONE TABLET BY MOUTH DAILY 06/05/2016 12/01/2016 In active cetirizine 10 mg tablet RxNorm: 8826750 1 Tablet(s) PO daily 05/01/2016 05/30/2016 Inactive Levaquin 250 mg tablet RxNorm: 811445 Tablet(s) PO 2 pills day one and 1 pill day 2-7 04/06/2016 07/21/2016 Inactive warfarin 5 mg tablet RxNorm: 769442 Tablet(s) 1/2 TABLETS BY MOUTH ON AND WEDNESDAY. TAKE ONLY 1 TABLET BY MOUTH ALL OTHER DAYS OF THE WEEK 03/18/2016 07/07/2016 In active triamcinolone aceton sreekanth 0.025 % topical cream RxNorm: 4221152 1 Application TOP BI D 03/10/2016 08/16/2017 In active potassium chloride E R 20 mEq tablet,extended release RxNorm: 743675 1 Tablet(s) PO daily 03/04/2016 06/01/2016 Inactive Levaquin 250 mg tablet RxNorm: 544297 Tablet(s) PO 2 pills day one and 1 pill day 2-7 03/04/2016 04/05/2016 Inactive Levaquin 250 mg tablet RxNorm: 369872 Tablet(s) PO 2 pills day one and 1 pill day 2-7 03/03/2016 03/03/2016 Inactive potassium chloride E R 20 mEq tablet,extended release RxNorm: 988721 1 Tablet(s) PO daily 03/03/2016 03/03/2016 Inactive Cipro 500 mg tablet RxNorm: 795078 1 Tablet(s) PO BID 02/20/2016 07/21/2016 Inactive Cipro 500 mg tablet RxNorm: 681489 1 Tablet(s) PO BID 02/20/2016 02/19/2016 Inactive furosemide 40 mg tablet RxNorm: 950232 TAKE ONE TABLET BY MOUTH DAILY 01/27/2016 01/26/2016 In active warfarin 5 mg tablet RxNorm: 065322 TAKE 1 AND 1/2 TABLETS BY MOUTH ON AND WEDNESDAY. TAKE ONLY 1 TABLET BY MOUTH ALL OTHER DAYS OF THE WEEK 01/27/2016 01/26/2016 In active furosemide 40 mg tablet RxNorm: 708005 TAKE ONE TABLET BY MOUTH DAILY 01/27/2016 06/04/2016 In active warfarin 5 mg tablet RxNorm: 849854 TAKE 1 AND 1/2 TABLETS BY MOUTH ON AND WEDNESDAY. TAKE ONLY 1 TABLET BY MOUTH ALL OTHER DAYS OF THE WEEK 01/27/2016 03/17/2016 In active potassium chloride E R 20 mEq tablet,extended release RxNorm: 232664 1 Tablet(s) PO daily 11/20/2015 03/02/2016 Inactive furosemide 40 mg tablet RxNorm: 017730 TAKE ONE TABLET BY MOUTH DAILY 11/12/2015 01/26/2016 In active Zovirax 5 % topical cream RxNorm: 095007 TOP QID 0 09/24/2015 09/23/2015 Inactive Zovirax 5 % topical cream RxNorm: 556794 TOP QID 0 09/24/2015 11/19/2015 Inactive nystatin 100,000 uni t/gram topical cream RxNorm: 132191 1 Application TOP TID 09/17/2015 10/12/2016 In active warfarin 5 mg tablet RxNorm: 471353 TAKE 1 AND 1/2 TABLETS BY MOUTH ON AND WEDNESDAY. TAKE ONLY 1 TABLET BY MOUTH ALL OTHER DAYS OF THE WEEK 08/19/2015 01/05/2016 In active loratadine 10 mg tablet RxNorm: 055873 1 Tablet(s) PO daily 07/30/2015 07/23/2016 Inactive loratadine 10 mg tablet RxNorm: 882846 1 Tablet(s) PO daily 07/30/2015 07/29/2015 Inactive furosemide 40 mg tablet RxNorm: 300899 TAKE ONE TABLET BY MOUTH DAILY 06/24/2015 11/11/2015 In active levothyroxine 125 mc g tablet RxNorm: 276657 1 Tablet(s) PO daily 05/31/2015 05/24/2016 Inactive furosemide 40 mg tablet RxNorm: 171763 1 Tablet(s) PO daily 04/05/2015 06/23/2015 Inactive warfarin 5 mg tablet RxNorm: 697888 TAKE 1 AND 1/2 TABLETS BY MOUTH ON AND WEDNESDAY. TAKE ONLY 1 TABLET BY MOUTH ALL OTHER DAYS OF THE WEEK 02/12/2015 07/29/2015 In active Flonase Allergy Reli ef 50 mcg/actuation nasal spray,suspension RxNorm: 2 [place] NASAL daily 02/05/2015 03/06/2015 Inactive Kenalog 40 mg/mL zohra pension for injection RxNorm: 5251995 Milliliter(s) Inj 02/05/2015 02/05/2015 In active warfarin 5 mg tablet RxNorm: 925129 Take 7.5mg (1 1/2 tablets) Wednesday and and 1 Tablet(s) PO (5mg) all other days 01/11/2015 02/09/2015 Inactive levothyroxine 125 mc g tablet RxNorm: 494043 1 Tablet(s) PO every other day 01/01/2015 05/30/2015 In active alternate with 150 levothyroxine 150 mc g tablet RxNorm: 300732 1 Tablet(s) PO every other day 01/01/2015 05/30/2015 In active alternate with 125 loratadine 10 mg tablet RxNorm: 196060 Tablet(s) PO as needed No Start Date Active Fish Oil 1,000 mg ca psule RxNorm: 1 Capsule(s) PO TID No Start Date Active magnesium 250 mg tablet RxNorm: 1 Tablet(s) PO daily No Start Date Active Vitamin D3 2,000 uni t tablet RxNorm: 972322 2 Tablet(s) PO daily No Start Date Active Fosamax 35 mg tablet RxNorm: 178667 1 Tablet(s) PO QW No Start Date Active levothyroxine 125 mc g tablet RxNorm: 035744 1 Tablet(s) PO daily No Start Date 12/31/2014 Inactive levothyroxine 150 mc g tablet RxNorm: 857517 1 Tablet(s) PO daily No Start Date 12/31/2014 Inactive diltiazem 60 mg tablet RxNorm: 541760 1 Tablet(s) PO QID No Start Date 03/23/2018 Inactive meclizine 25 mg tablet RxNorm: 687949 1 Tablet(s) PO TID as needed Dizziness No Start Date 07/18/2018 Inactive furosemide 40 mg tablet RxNorm: 320909 1 Tablet(s) PO daily No Start Date 04/04/2015 Inactive potassium chloride RxNorm: miscellaneous No Start Date 11/19/2015 Inactive Vitamin D2 oral RxNorm: 4018 oral No Start Date 05/31/2015 Inactive warfarin 5 mg tablet RxNorm: 116362 1 Tablet(s) PO daily No Start Date 01/10/2015 Inactive Coumadin 4 mg tablet RxNorm: 799911 1 Tablet(s) PO Wed/ No Start Date 07/28/2017 Inactive Medication Administered Medication Codes Instruc tions Start Date Status ceftriaxone 500 mg solution for injection RxNorm: 5276847 10/27/2018 No longer A ctive ceftriaxone 500 mg solution for injection RxNorm: 2331379 07/22/2016 No longer A ctive Kenalog 40 mg/mL suspension for injection RxNorm: 3528927 Milliliter 07/22/2016 No longer Active Kenalog 40 mg/mL suspension for injection RxNorm: 5209706 Milliliter 02/05/2015 No longer Active Immunizations Vaccine [...] not specified ICD-10: N39.0 ICD-9: 599.0 12/05/2018 custodial (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 ICD-10: Z79.01 ICD-9: [...] 244.9 11/20/2014 ACTINIC KERATOSIS ICD-9: 702.0 11/20/2014 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 ICD-9: V58.61 [...] Code Item Item Code Result Date Pt Rag4869 PT 23.6 seconds 01/06/2019 Pt Aps9034 INR 2.2 01/06/2019 Pt Oro9143 Low Intensity - 1.5-2.0 01/06/2019 Pt Uaw7026 Mod intensity - 2.0-3.0 01/06/2019 Pt Emh0765 Hi intensity - 3.0-4.0 01/06/2019 Pt Qst4704 PT 23.8 seconds 12/09/2018 Pt Mlu6146 INR 2.2 12/09/2018 Pt Wpc1993 Low Intensity - 1.5-2.0 12/09/2018 Pt Knz2325 Mod intensity - 2.0-3.0 12/09/2018 Pt Wxw0809 Hi intensity - 3.0-4.0 12/09/2018 Pt Dgz8926 PT 22.3 seconds 11/23/2018 Pt Loa6153 INR 2.0 11/23/2018 Pt Usg1059 Low Intensity - 1.5-2.0 11/23/2018 Pt Nhr2546 Mod intensity - 2.0-3.0 11/23/2018 Pt Hdi0730 Hi intensity - 3.0-4.0 11/23/2018 Pt Ayy9423 PT 18.0 seconds 11/14/2018 Pt Jcg0372 INR 1.5 11/14/2018 Pt Ubx2800 Low Intensity - 1.5-2.0 11/14/2018 Pt Asa5213 Mod intensity - 2.0-3.0 11/14/2018 Pt Ubz2885 Hi intensity - 3.0-4.0 11/14/2018 Pt Cwr0965 PT 17.3 seconds 11/03/2018 Pt Phi2129 INR 1.5 11/03/2018 Pt Tvf5366 Low Intensity - 1.5-2.0 11/03/2018 Pt Dfb3850 Mod intensity - 2.0-3.0 11/03/2018 Pt Tma3623 Hi intensity - 3.0-4.0 11/03/2018 Urine Culture Ucult Comp lete >100,000 col/ml aerobic grow th sent to ref lab 10/28/2018 Pt Sjr2740 PT 24.4 seconds 10/24/2018 Pt Pkh1984 INR 2.2 10/24/2018 Pt Xzr8283 Low Intensity - 1.5-2.0 10/24/2018 Pt Dtb6096 Mod intensity - 2.0-3.0 10/24/2018 Pt Ljv6504 Hi intensity - 3.0-4.0 10/24/2018 Lipid Ord30 CHOL 143 mg/dL 10/24/2018 Lipid Ord30 HDL 52.0 mg/dl 10/24/2018 Lipid Ord30 TRIG 78 mg/dL 10/24/2018 Lipid Ord30 LDL 75 mg/dL 10/24/2018 Lipid Ord30 C/HDL 2.8 Ratio 10/24/2018 Comp Metabolic Isj492 NA 142 mEq/L 10/24/2018 Comp Metabolic Xbq213 K 4.6 mEq/L 10/24/2018 Comp Metabolic Veb886 CL 107 mEq/L 10/24/2018 Comp Metabolic Bsp934 CO2 27.0 mEq/L 10/24/2018 Comp Metabolic Qre991 AN ION GAP 13 10/24/2018 Comp Metabolic Tkx659 GL UCOSE 82 mg/dL 10/24/2018 Comp Metabolic Izl227 Cr eat 1.1 mg/dL 10/24/2018 Comp Metabolic Nca553 eG FR 54 ml/min/1.73m2 10/24 Comp Metabolic Ndo220 BUN 23 mg/dL 10/24/2018 Comp Metabolic Nwd051 B/ C Ratio 21.9 Ratio 10/24/2018 Comp Metabolic Wnb495 CA LCIUM 9.0 mg/dL 10/24/2018 Comp Metabolic Wru403 AL K PHOS 64 U/L 10/24/2018 Comp Metabolic Inw999 T(SGOT) 18 U/L 10/24/2018 Comp Metabolic Rsq853 AL T(SGPT) 14 U/L 10/24/2018 Comp Metabolic Mzo025 BI LI T 0.5 mg/dL 10/24/2018 Comp Metabolic Cyd360 AL BUMIN 3.0 g/dL 10/24/2018 Comp Metabolic Duv019 TP RO 5.2 g/dL 10/24/2018 Comp Metabolic Rhc770 GL OB 2.2 g/dL 10/24/2018 Comp Metabolic Vgl832 A/ G Ratio 1.4 Ratio 10/24/2018 Comp Metabolic Pep469 Os mo 286 mOsmo 10/24/2018 Pt Pgb5181 PT 23.8 seconds 09/29/2018 Pt Ikg7424 INR 2.2 09/29/2018 Pt Aty6965 Low Intensity - 1.5-2.0 09/29/2018 Pt Ehf7964 Mod intensity - 2.0-3.0 09/29/2018 Pt Yhc2507 Hi intensity - 3.0-4.0 09/29/2018 Pt Vpa4339 PT 19.6 seconds 09/19/2018 Pt Toc1370 INR 1.7 09/19/2018 Pt Stu0394 Low Intensity - 1.5-2.0 09/19/2018 Pt Azb6934 Mod intensity - 2.0-3.0 09/19/2018 Pt Ndq3958 Hi intensity - 3.0-4.0 09/19/2018 Pt Jhz0866 PT 16.8 seconds 09/12/2018 Pt Pgc1102 INR 1.4 09/12/2018 Pt Fao9472 Low Intensity - 1.5-2.0 09/12/2018 Pt Rgl3418 Mod intensity - 2.0-3.0 09/12/2018 Pt Fuu7319 Hi intensity - 3.0-4.0 09/12/2018 Pt Dej7762 PT 13.1 seconds 09/07/2018 Pt Xeh1848 INR 1.0 09/07/2018 Pt Kdf8499 Low Intensity - 1.5-2.0 09/07/2018 Pt Obb5339 Mod intensity - 2.0-3.0 09/07/2018 Pt Rup9942 Hi intensity - 3.0-4.0 09/07/2018 Pt Tax6567 PT 24.1 seconds 08/23/2018 Pt Lok4213 INR 2.2 08/23/2018 Pt Nlg6734 Low Intensity - 1.5-2.0 08/23/2018 Pt Zzf7383 Mod intensity - 2.0-3.0 08/23/2018 Pt Ibj7335 Hi intensity - 3.0-4.0 08/23/2018 Pt Tow7253 PT 30.9 seconds 08/16/2018 Pt Xjb7451 INR 3.0 08/16/2018 Pt Arg8957 Low Intensity - 1.5-2.0 08/16/2018 Pt Qwq6859 Mod intensity - 2.0-3.0 08/16/2018 Pt Qcp6800 Hi intensity - 3.0-4.0 08/16/2018 Pt Qea8980 PT 29.5 seconds 08/01/2018 Pt Vty0216 INR 2.8 08/01/2018 Pt Ysy7862 Low Intensity - 1.5-2.0 08/01/2018 Pt Oxv9358 Mod intensity - 2.0-3.0 08/01/2018 Pt Ebe9617 Hi intensity - 3.0-4.0 08/01/2018 Pt Rny7418 PT 24.2 seconds 07/25/2018 Pt Hxk8911 INR 2.2 07/25/2018 Pt Sed3711 Low Intensity - 1.5-2.0 07/25/2018 Pt Abi9589 Mod intensity - 2.0-3.0 07/25/2018 Pt Pnw5749 Hi intensity - 3.0-4.0 07/25/2018 Pt Hfv1209 PT 38.6 seconds 07/19/2018 Pt Vdu7331 INR 4.0 07/19/2018 Pt Gfl0928 Low Intensity - 1.5-2.0 07/19/2018 Pt Mwk2743 Mod intensity - 2.0-3.0 07/19/2018 Pt Imt9229 Hi intensity - 3.0-4.0 07/19/2018 Pt Afb3068 PT 25.7 seconds 07/11/2018 Pt Pzh3188 INR 2.4 07/11/2018 Pt Ydy8929 Low Intensity - 1.5-2.0 07/11/2018 Pt Beu2999 Mod intensity - 2.0-3.0 07/11/2018 Pt Dyh2628 Hi intensity - 3.0-4.0 07/11/2018 Pt Ecq1085 PT 18.5 seconds 07/08/2018 Pt Ppp8908 INR 1.6 07/08/2018 Pt Wgt9247 Low Intensity - 1.5-2.0 07/08/2018 Pt Sxw3975 Mod intensity - 2.0-3.0 07/08/2018 Pt Xis4294 Hi intensity - 3.0-4.0 07/08/2018 Pt Etp5548 PT 27.3 seconds 06/29/2018 Pt Cdu1479 INR 2.6 06/29/2018 Pt Bza9825 Low Intensity - 1.5-2.0 06/29/2018 Pt Ndz9784 Mod intensity - 2.0-3.0 06/29/2018 Pt Htp6040 Hi intensity - 3.0-4.0 06/29/2018 Pt Jeh0925 PT 24.0 seconds 05/26/2018 Pt Hnk0360 INR 2.2 05/26/2018 Pt Frr5960 Low Intensity - 1.5-2.0 05/26/2018 Pt Qht7198 Mod intensity - 2.0-3.0 05/26/2018 Pt Rbk8094 Hi intensity - 3.0-4.0 05/26/2018 Tsh Ord6 [...] 29.6 pg 03/25/2018 Cbc With Differential Ord2 [place]% 9.5 % 03/25/2018 Cbc With Differential Ord2 [...] 2.19 K/ul 03/25/2018 Cbc With Differential Ord2 [place] ABS# 0.8 K/ul 03/25/2018 Cbc With Differential Ord2 Eos ABS# 0.3 K/ul 03/25/2018 Cbc With Differential Ord2 Baso ABS# 0.0 K/ul 03/25/2018 Lipid Ord30 CHOL 156 mg/dL 03/25/2018 Lipid Ord30 HDL 52.0 mg/dl 03/25/2018 Lipid Ord30 TRIG 98 mg/dL 03/25/2018 Lipid Ord30 LDL 84 mg/dL 03/25/2018 Lipid Ord30 C/HDL 3.0 Ratio 03/25/2018 Free T4 Cmt977 FREE T4 1.73 ng/dL 03/25/2018 Comp Metabolic Att253 NA 143 mEq/L 03/25/2018 Comp Metabolic Svj102 K 4.6 mEq/L 03/25/2018 Comp Metabolic Ids370 CL 108 mEq/L 03/25/2018 Comp Metabolic Zos071 CO2 26.0 mEq/L 03/25/2018 Comp Metabolic Lme592 AN ION GAP 14 03/25/2018 Comp Metabolic Nll492 GL UCOSE 87 mg/dL 03/25/2018 Comp Metabolic Qcr383 Cr eat 1.2 mg/dL 03/25/2018 Comp Metabolic Qna740 eG FR 48 ml/min/1.73m2 03/25 Comp Metabolic Laa517 BUN 18 mg/dL 03/25/2018 Comp Metabolic Mdm358 B/ C Ratio 15.5 Ratio 03/25/2018 Comp Metabolic Lqa383 CA LCIUM 9.1 mg/dL 03/25/2018 Comp Metabolic Inn181 AL K PHOS 58 U/L 03/25/2018 Comp Metabolic Ncl820 T(SGOT) 21 U/L 03/25/2018 Comp Metabolic Fas439 AL T(SGPT) 13 U/L 03/25/2018 Comp Metabolic Aht323 BI LI T 0.7 mg/dL 03/25/2018 Comp Metabolic Wje854 AL BUMIN 3.2 g/dL 03/25/2018 Comp Metabolic Ghw875 TP RO 5.5 g/dL 03/25/2018 Comp Metabolic Kkl495 GL OB 2.3 g/dL 03/25/2018 Comp Metabolic Tzh379 A/ G Ratio 1.4 Ratio 03/25/2018 Comp Metabolic Ibb124 Os mo 286 mOsmo 03/25/2018 Pt Ehb5714 PT 29.0 seconds 03/22/2018 Pt Yfw8568 INR 2.7 03/22/2018 Pt Jmn3647 Low Intensity - 1.5-2.0 03/22/2018 Pt Ert5398 Mod intensity - 2.0-3.0 03/22/2018 Pt Veg4937 Hi intensity - 3.0-4.0 03/22/2018 Pt Mjs4854 PT 27.1 seconds 02/25/2018 Pt Ebb4986 INR 2.5 02/25/2018 Pt Jux5180 Low Intensity - 1.5-2.0 02/25/2018 Pt Dnx1656 Mod intensity - 2.0-3.0 02/25/2018 Pt Hup3404 Hi intensity - 3.0-4.0 02/25/2018 Pt Ydt1604 PT 26.1 seconds 01/26/2018 Pt Lcj2662 INR 2.4 01/26/2018 Pt Ewm7957 Low Intensity - 1.5-2.0 01/26/2018 Pt Mqa7481 Mod intensity - 2.0-3.0 01/26/2018 Pt Qab5815 Hi intensity - 3.0-4.0 01/26/2018 Pt Xgq4633 PT 22.8 seconds 12/24/2017 Pt Ugk6555 INR 2.0 12/24/2017 Pt Caf0878 Low Intensity - 1.5-2.0 12/24/2017 Pt Nie5404 Mod intensity - 2.0-3.0 12/24/2017 Pt Cnw1825 Hi intensity - 3.0-4.0 12/24/2017 Pt Kdn0368 PT 29.4 seconds 11/18/2017 Pt Swy1831 INR 2.8 11/18/2017 Pt Yxh4095 Low Intensity - 1.5-2.0 11/18/2017 Pt Vvq1869 Mod intensity - 2.0-3.0 11/18/2017 Pt Mer6866 Hi intensity - 3.0-4.0 11/18/2017 Pt Dnk1381 PT 26.6 seconds 09/13/2017 Pt Vau3934 INR 2.4 09/13/2017 Pt Fjy0100 Low Intensity - 1.5-2.0 09/13/2017 Pt Ocm5355 Mod intensity - 2.0-3.0 09/13/2017 Pt Erf8243 Hi intensity - 3.0-4.0 09/13/2017 Pt Qdq4732 PT 28.2 seconds 08/10/2017 Pt Lai3993 INR 2.6 08/10/2017 Pt Zom2676 Low Intensity - 1.5-2.0 08/10/2017 Pt Zyq3886 Mod intensity - 2.0-3.0 08/10/2017 Pt Gub6363 Hi intensity - 3.0-4.0 08/10/2017 Pt Lzi8721 PT 33.9 seconds 07/27/2017 Pt Wfl7909 INR 3.3 07/27/2017 Pt Roe6407 Low Intensity - 1.5-2.0 07/27/2017 Pt Ivt5927 Mod intensity - 2.0-3.0 07/27/2017 Pt Lmd5640 Hi intensity - 3.0-4.0 07/27/2017 Pt Jhe4478 PT 29.1 seconds 06/29/2017 Pt Iql7230 INR 2.7 06/29/2017 Pt Jlc7556 Low Intensity - 1.5-2.0 06/29/2017 Pt Abd9981 Mod intensity - 2.0-3.0 06/29/2017 Pt Jvb6562 Hi intensity - 3.0-4.0 06/29/2017 Pt Wnc8208 PT 30.3 seconds 06/11/2017 Pt Yjc6781 INR 2.9 06/11/2017 Pt Kfj2627 Low Intensity - 1.5-2.0 06/11/2017 Pt Gak3720 Mod intensity - 2.0-3.0 06/11/2017 Pt Qwj8773 Hi intensity - 3.0-4.0 06/11/2017 Pt Lob2004 PT 39.1 seconds 06/07/2017 Pt Zso4828 INR 3.9 06/07/2017 Pt Djf2851 Low Intensity - 1.5-2.0 06/07/2017 Pt Ydl2055 Mod intensity - 2.0-3.0 06/07/2017 Pt Gqi6946 Hi intensity - 3.0-4.0 06/07/2017 Pt Srw8084 PT 34.2 seconds 05/26/2017 Pt Bfs8577 INR 3.3 05/26/2017 Pt Qjb2991 Low Intensity - 1.5-2.0 05/26/2017 Pt Lnn7789 Mod intensity - 2.0-3.0 05/26/2017 Pt Nmw1539 Hi intensity - 3.0-4.0 05/26/2017 Comp Metabolic Hgn289 NA 138 mEq/L 04/23/2017 Comp Metabolic Uuy482 K 4.2 mEq/L 04/23/2017 Comp Metabolic Ddt234 CL 101 mEq/L 04/23/2017 Comp Metabolic Gsl776 CO2 28.0 mEq/L 04/23/2017 Comp Metabolic Zul255 AN ION GAP 13 04/23/2017 Comp Metabolic Qlf245 GL UCOSE 89 mg/dL 04/23/2017 Comp Metabolic Zmy828 Cr eat 1.1 mg/dL 04/23/2017 Comp Metabolic Cwf495 eG FR 51 ml/min/1.73m2 04/23 Comp Metabolic Hhd303 BUN 26 mg/dL 04/23/2017 Comp Metabolic Udd417 B/ C Ratio 23.9 Ratio 04/23/2017 Comp Metabolic Jnw645 CA LCIUM 9.4 mg/dL 04/23/2017 Comp Metabolic Iil405 AL K PHOS 95 U/L 04/23/2017 Comp Metabolic Ehx596 T(SGOT) 18 U/L 04/23/2017 Comp Metabolic Ulm042 AL T(SGPT) 17 U/L 04/23/2017 Comp Metabolic Ele613 BI LI T 0.7 mg/dL 04/23/2017 Comp Metabolic Ygm744 AL BUMIN 3.2 g/dL 04/23/2017 Comp Metabolic Sgd141 TP RO 5.6 g/dL 04/23/2017 Comp Metabolic Ekm823 GL OB 2.4 g/dL 04/23/2017 Comp Metabolic Lsl519 A/ G Ratio 1.3 Ratio 04/23/2017 Comp Metabolic Kem959 Os mo 280 mOsmo 04/23/2017 Pt Vfk2050 PT 28.6 seconds 04/23/2017 Pt Qxd8196 INR 2.7 04/23/2017 Pt Dik9284 Low Intensity - 1.5-2.0 04/23/2017 Pt Rib6662 Mod intensity - 2.0-3.0 04/23/2017 Pt Bwb9886 Hi intensity - 3.0-4.0 04/23/2017 Pt Nrb3225 PT 24.4 seconds 03/16/2017 Pt Qzi2487 INR 2.2 03/16/2017 Pt Eph4124 Low Intensity - 1.5-2.0 03/16/2017 Pt Eic6007 Mod intensity - 2.0-3.0 03/16/2017 Pt Ddp3913 Hi intensity - 3.0-4.0 03/16/2017 Pt Dqn7655 PT 28.2 seconds 02/24/2017 Pt Exn3420 INR 2.6 02/24/2017 Pt Qka5377 Low Intensity - 1.5-2.0 02/24/2017 Pt Kfs0479 Mod intensity - 2.0-3.0 02/24/2017 Pt Ihn8180 Hi intensity - 3.0-4.0 02/24/2017 Pt Taw8920 PT 26.8 seconds 02/08/2017 Pt Ykr3295 INR 2.5 02/08/2017 Pt Urq9668 Low Intensity - 1.5-2.0 02/08/2017 Pt Tjx0216 Mod intensity - 2.0-3.0 02/08/2017 Pt Oij4197 Hi intensity - 3.0-4.0 02/08/2017 Lipid Ord30 CHOL 150 mg/dL 01/25/2017 Lipid Ord30 HDL 55.0 mg/dl 01/25/2017 Lipid Ord30 TRIG 66 mg/dL 01/25/2017 Lipid Ord30 LDL 82 mg/dL 01/25/2017 Lipid Ord30 C/HDL 2.7 Ratio 01/25/2017 Pt Ufd4624 PT 29.9 seconds 01/25/2017 Pt Fpi1999 INR 2.8 01/25/2017 Pt Tfu3438 Low Intensity - 1.5-2.0 01/25/2017 Pt Hda0791 Mod intensity - 2.0-3.0 01/25/2017 Pt Ioc5726 Hi intensity - 3.0-4.0 01/25/2017 Comp Metabolic Vic287 NA 143 mEq/L 01/25/2017 Comp Metabolic Met356 K 3.9 mEq/L 01/25/2017 Comp Metabolic Ivz200 CL 108 mEq/L 01/25/2017 Comp Metabolic Ckv253 CO2 23.0 mEq/L 01/25/2017 Comp Metabolic Stj049 AN ION GAP 16 01/25/2017 Comp Metabolic Sku448 GL UCOSE 80 mg/dL 01/25/2017 Comp Metabolic Abc830 Cr eat 1.0 mg/dL 01/25/2017 Comp Metabolic Qem342 eG FR 57 ml/min/1.73m2 01/25 Comp Metabolic Aeu920 BUN 25 mg/dL 01/25/2017 Comp Metabolic Pxk267 B/ C Ratio 25.0 Ratio 01/25/2017 Comp Metabolic Fsi396 CA LCIUM 8.5 mg/dL 01/25/2017 Comp Metabolic Rnu887 AL K PHOS 81 U/L 01/25/2017 Comp Metabolic Hrw380 T(SGOT) 19 U/L 01/25/2017 Comp Metabolic Otw803 AL T(SGPT) 23 U/L 01/25/2017 Comp Metabolic Upc079 BI LI T 0.5 mg/dL 01/25/2017 Comp Metabolic Emc948 AL BUMIN 2.9 g/dL 01/25/2017 Comp Metabolic Gia469 TP RO 5.1 g/dL 01/25/2017 Comp Metabolic Vzn423 GL OB 2.2 g/dL 01/25/2017 Comp Metabolic Xhx101 A/ G Ratio 1.3 Ratio 01/25/2017 Comp Metabolic Uzi649 Os mo 288 mOsmo 01/25/2017 Cbc With [...] 30.7 pg 01/25/2017 Cbc With Differential Ord2 [place]% 8.2 % 01/25/2017 Cbc With Differential Ord2 [...] 3.10 K/ul 01/25/2017 Cbc With Differential Ord2 [place] ABS# 0.8 K/ul 01/25/2017 Cbc With Differential Ord2 Eos ABS# 0.4 K/ul 01/25/2017 Cbc With Differential Ord2 Baso ABS# 0.1 K/ul 01/25/2017 Free T4 Xxo130 FREE T4 2.09 ng/dL 01/25/2017 Tsh Ord6 hTSH II 0.46 uIU/mL 01/25/2017 Pt Lnf7182 PT 26.1 seconds 11/26/2016 Pt Zmg1568 INR 2.6 11/26/2016 Pt Hed0684 Low Intensity - 1.5-2.0 11/26/2016 Pt Qis7466 Mod intensity - 2.0-3.0 11/26/2016 Pt Acb0889 Hi intensity - 3.0-4.0 11/26/2016 Pt Dwx2570 PT 26.2 seconds 10/29/2016 Pt Abs5094 INR 2.6 10/29/2016 Pt Vmy2689 Low Intensity - 1.5-2.0 10/29/2016 Pt Ktl4763 Mod intensity - 2.0-3.0 10/29/2016 Pt Zee2460 Hi intensity - 3.0-4.0 10/29/2016 Pt Oao1199 PT 20.8 seconds 10/13/2016 Pt Asu4245 INR 1.9 10/13/2016 Pt Fuh8352 Low Intensity - 1.5-2.0 10/13/2016 Pt Urb8030 Mod intensity - 2.0-3.0 10/13/2016 Pt Rwm7827 Hi intensity - 3.0-4.0 10/13/2016 Pt Smo4247 PT 26.5 seconds 10/01/2016 Pt Sdw7563 INR 2.6 10/01/2016 Pt Fvz7635 Low Intensity - 1.5-2.0 10/01/2016 Pt Rai5890 Mod intensity - 2.0-3.0 10/01/2016 Pt Clf7357 Hi intensity - 3.0-4.0 10/01/2016 Pt Fst4268 PT 24.6 seconds 09/14/2016 Pt Txd3363 INR 2.4 09/14/2016 Pt Sel3500 Low Intensity - 1.5-2.0 09/14/2016 Pt Knc9245 Mod intensity - 2.0-3.0 09/14/2016 Pt Foh7877 Hi intensity - 3.0-4.0 09/14/2016 Pt Zhc8955 PT 18.0 seconds 09/07/2016 Pt Ece2976 INR 1.6 09/07/2016 Pt Bdf1734 Low Intensity - 1.5-2.0 09/07/2016 Pt Pqq8051 Mod intensity - 2.0-3.0 09/07/2016 Pt Rqu0975 Hi intensity - 3.0-4.0 09/07/2016 Pt Ktu2213 PT 23.7 seconds 08/12/2016 Pt Hlz3521 INR 2.2 08/12/2016 Pt Wpy4054 Low Intensity - 1.5-2.0 08/12/2016 Pt Ekc1393 Mod intensity - 2.0-3.0 08/12/2016 Pt Quf5119 Hi intensity - 3.0-4.0 08/12/2016 Pt Ysy5163 PT 21.6 seconds 07/27/2016 Pt Aqp6430 INR 2.0 07/27/2016 Pt Hnk4241 Low Intensity - 1.5-2.0 07/27/2016 Pt Nbr0823 Mod intensity - 2.0-3.0 07/27/2016 Pt Zqt7467 Hi intensity - 3.0-4.0 07/27/2016 Pt Uqn7771 PT 26.0 seconds 06/15/2016 Pt Rpt5598 INR 2.5 06/15/2016 Pt Sve5923 Low Intensity - 1.5-2.0 06/15/2016 Pt Mgf5819 Mod intensity - 2.0-3.0 06/15/2016 Pt Mbg2683 Hi intensity - 3.0-4.0 06/15/2016 Pt Oqo8414 PT 18.8 seconds 06/01/2016 Pt Vpi0394 INR 1.7 06/01/2016 Pt Bwk7030 Low Intensity - 1.5-2.0 06/01/2016 Pt Qpd8514 Mod intensity - 2.0-3.0 06/01/2016 Pt Qrt3150 Hi intensity - 3.0-4.0 06/01/2016 Pt Gvu0425 PT 20.8 seconds 05/12/2016 Pt Xtj4541 INR 1.9 05/12/2016 Pt Osy1270 Low Intensity - 1.5-2.0 05/12/2016 Pt Frb7263 Mod intensity - 2.0-3.0 05/12/2016 Pt Njx7597 Hi intensity - 3.0-4.0 05/12/2016 Pt Fcp4045 PT 24.5 seconds 04/10/2016 Pt Dra2715 INR 2.4 04/10/2016 Pt Utl9236 Low Intensity - 1.5-2.0 04/10/2016 Pt Rpx4885 Mod intensity - 2.0-3.0 04/10/2016 Pt Wsr0727 Hi intensity - 3.0-4.0 04/10/2016 Pt Dnk4488 PT 26.4 seconds 03/10/2016 Pt Zju8845 INR 2.6 03/10/2016 Pt Wpw3767 Low Intensity - 1.5-2.0 03/10/2016 Pt Uhb8180 Mod intensity - 2.0-3.0 03/10/2016 Pt Tpf6262 Hi intensity - 3.0-4.0 03/10/2016 Pt Wss7010 PT 24.9 seconds 03/06/2016 Pt Moq4935 INR 2.4 03/06/2016 Pt Wxd8303 Low Intensity - 1.5-2.0 03/06/2016 Pt Iuu8436 Mod intensity - 2.0-3.0 03/06/2016 Pt Lye5645 Hi intensity - 3.0-4.0 03/06/2016 Pt Kqb6474 PT 21.9 seconds 02/25/2016 Pt Rdi7700 INR 2.0 02/25/2016 Pt Zas1010 Low Intensity - 1.5-2.0 02/25/2016 Pt Ohe4653 Mod intensity - 2.0-3.0 02/25/2016 Pt Bbo8563 Hi intensity - 3.0-4.0 02/25/2016 Pt Apm9014 PT 21.8 seconds 02/21/2016 Pt Wac2795 INR 2.0 02/21/2016 Pt Nmq4504 Low Intensity - 1.5-2.0 02/21/2016 Pt Gyc7423 Mod intensity - 2.0-3.0 02/21/2016 Pt Wjc1696 Hi intensity - 3.0-4.0 02/21/2016 Culture Urine [id number] URI NE CULTURE SEE NOTES 02/20/2016 Culture Urine [id number] Con tinued Results 02/20/2016 Urine Culture Ucult [...] 29.2 pg 02/14/2016 Cbc With Differential Ord2 [place]% 9.3 % 02/14/2016 Cbc With Differential Ord2 [...] 2.55 K/ul 02/14/2016 Cbc With Differential Ord2 [place] ABS# 0.8 K/ul 02/14/2016 Cbc With Differential Ord2 Eos ABS# 0.4 K/ul 02/14/2016 Cbc With Differential Ord2 Baso ABS# 0.1 K/ul 02/14/2016 Tsh Ord6 hTSH II 0.80 uIU/mL 02/14/2016 Pt Oza3014 PT 27.1 seconds 02/14/2016 Pt Ydy1518 INR 2.7 02/14/2016 Pt Nqo6977 Low Intensity - 1.5-2.0 02/14/2016 Pt Nus1340 Mod intensity - 2.0-3.0 02/14/2016 Pt Wez3387 Hi intensity - 3.0-4.0 02/14/2016 Free T4 Oga071 FREE T4 1.87 ng/dL 02/14/2016 Comp Metabolic Qxd503 NA 139 mEq/L 02/14/2016 Comp Metabolic Zhm011 K 3.8 mEq/L 02/14/2016 Comp Metabolic Szm121 CL 103 mEq/L 02/14/2016 Comp Metabolic Zds889 CO2 27.0 mEq/L 02/14/2016 Comp Metabolic Lck894 AN ION GAP 13 02/14/2016 Comp Metabolic Xbs723 GL UCOSE 91 mg/dL 02/14/2016 Comp Metabolic Ujz229 Cr eat 1.0 mg/dL 02/14/2016 Comp Metabolic Rbj620 eG FR 58 ml/min/1.73m2 02/13 Comp Metabolic Hnu110 BUN 16 mg/dL 02/14/2016 Comp Metabolic Wtf683 B/ C Ratio 16.2 Ratio 02/14/2016 Comp Metabolic Ybl427 CA LCIUM 9.0 mg/dL 02/14/2016 Comp Metabolic Jha674 AL K PHOS 88 U/L 02/14/2016 Comp Metabolic Lul487 T(SGOT) 17 U/L 02/14/2016 Comp Metabolic Ftt740 AL T(SGPT) 12 U/L 02/14/2016 Comp Metabolic Bnw639 BI LI T 0.6 mg/dL 02/14/2016 Comp Metabolic Ekc693 AL BUMIN 3.2 g/dL 02/14/2016 Comp Metabolic Sfs652 TP RO 5.8 g/dL 02/14/2016 Comp Metabolic Ohs125 GL OB 2.6 g/dL 02/14/2016 Comp Metabolic Zlo996 A/ G Ratio 1.3 Ratio 02/14/2016 Comp Metabolic Evw127 Os mo 278 mOsmo 02/14/2016 Pt Hzy0148 PT 34.6 seconds 02/06/2016 Pt Pcd5550 INR 3.7 02/06/2016 Pt Sod1606 Low Intensity - 1.5-2.0 02/06/2016 Pt Nvq2046 Mod intensity - 2.0-3.0 02/06/2016 Pt Rgu4655 Hi intensity - 3.0-4.0 02/06/2016 Pt Mmb6619 PT 33.3 seconds 01/23/2016 Pt Uhe0122 INR 3.5 01/23/2016 Pt Huo7576 Low Intensity - 1.5-2.0 01/23/2016 Pt Qpq5910 Mod intensity - 2.0-3.0 01/23/2016 Pt Eaf5262 Hi intensity - 3.0-4.0 01/23/2016 Pt Owi9098 PT 30.5 seconds 12/31/2015 Pt Ivu7163 INR 3.2 12/31/2015 Pt Qpb9213 Low Intensity - 1.5-2.0 12/31/2015 Pt Lgl1465 Mod intensity - 2.0-3.0 12/31/2015 Pt Nny9801 Hi intensity - 3.0-4.0 12/31/2015 Pt Lqt3803 PT 35.6 seconds 12/25/2015 Pt Xhy9578 INR 3.9 12/25/2015 Pt Qwg6087 Low Intensity - 1.5-2.0 12/25/2015 Pt Djv3495 Mod intensity - 2.0-3.0 12/25/2015 Pt Iyk8380 Hi intensity - 3.0-4.0 12/25/2015 Pt Ocf6563 PT 30.8 seconds 11/21/2015 Pt Wcw7539 INR 3.2 11/21/2015 Pt Fhw3291 Low Intensity - 1.5-2.0 11/21/2015 Pt Ply9758 Mod intensity - 2.0-3.0 11/21/2015 Pt Fwq5486 Hi intensity - 3.0-4.0 11/21/2015 Uric Acid [...] 30.0 pg 11/20/2015 Cbc With Differential Ord2 [place]% 8.1 % 11/20/2015 Cbc With Differential Ord2 [...] 2.51 K/ul 11/20/2015 Cbc With Differential Ord2 [place] ABS# 0.9 K/ul 11/20/2015 Cbc With Differential Ord2 Eos ABS# 0.3 K/ul 11/20/2015 Cbc With Differential Ord2 Baso ABS# 0.0 K/ul 11/20/2015 Comp Metabolic Uvg684 NA 137 mEq/L 10/22/2015 Comp Metabolic Lek144 K 3.9 mEq/L 10/22/2015 Comp Metabolic Uue142 CL 100 mEq/L 10/22/2015 Comp Metabolic Afg398 CO2 31.0 mEq/L 10/22/2015 Comp Metabolic Iyp857 AN ION GAP 10 10/22/2015 Comp Metabolic Lgb560 GL UCOSE 94 mg/dL 10/22/2015 Comp Metabolic Hcc661 Cr eat 1.0 mg/dL 10/22/2015 Comp Metabolic Fxx418 eG FR 55 ml/min/1.73m2 10/21 Comp Metabolic Lfk326 BUN 19 mg/dL 10/22/2015 Comp Metabolic Lin083 B/ C Ratio 18.3 Ratio 10/22/2015 Comp Metabolic Fra604 CA LCIUM 8.8 mg/dL 10/22/2015 Comp Metabolic Cbr754 AL K PHOS 83 U/L 10/22/2015 Comp Metabolic Lqz005 T(SGOT) 15 U/L 10/22/2015 Comp Metabolic Eze535 AL T(SGPT) 13 U/L 10/22/2015 Comp Metabolic Zxx214 BI LI T 0.9 mg/dL 10/22/2015 Comp Metabolic Ext251 AL BUMIN 2.8 g/dL 10/22/2015 Comp Metabolic Lcx185 TP RO 5.4 g/dL 10/22/2015 Comp Metabolic Eev535 GL OB 2.6 g/dL 10/22/2015 Comp Metabolic Zur028 A/ G Ratio 1.1 Ratio 10/22/2015 Comp Metabolic Fzj450 Os mo 276 mOsmo 10/22/2015 Bili D Ord93 BILI D 0.1 mg/dL 10/22/2015 Bili D Ord93 BILI I 0.8 mg/dL 10/22/2015 Pt Zmx5453 PT 22.8 seconds 10/22/2015 Pt Gwr5632 INR 2.1 10/22/2015 Pt Dwa4656 Low Intensity - 1.5-2.0 10/22/2015 Pt Zds4505 Mod intensity - 2.0-3.0 10/22/2015 Pt Omr8333 Hi intensity - 3.0-4.0 10/22/2015 Pt Plo3082 PT 28.0 seconds 09/16/2015 Pt Ttu5455 INR 2.7 09/16/2015 Pt Jac2376 Low Intensity - 1.5-2.0 09/16/2015 Pt Tam5620 Mod intensity - 2.0-3.0 09/16/2015 Pt Kyc3639 Hi intensity - 3.0-4.0 09/16/2015 Tsh Ord6 hTSH II 1.40 uIU/mL 09/16/2015 Free T4 Jco690 FREE T4 1.73 ng/dL 09/16/2015 Lipid Ord30 CHOL 169 mg/dL 09/16/2015 Lipid Ord30 HDL 66.0 mg/dl 09/16/2015 Lipid Ord30 TRIG 78 mg/dL 09/16/2015 Lipid Ord30 LDL 87 mg/dL 09/16/2015 Lipid Ord30 C/HDL 2.6 Ratio 09/16/2015 Pt Awt8754 PT 26.6 seconds 08/21/2015 Pt Bmt4069 INR 2.6 08/21/2015 Pt Ypq4603 Low Intensity - 1.5-2.0 08/21/2015 Pt Iqz1734 Mod intensity - 2.0-3.0 08/21/2015 Pt Fjf4164 Hi intensity - 3.0-4.0 08/21/2015 Comp Metabolic Joa346 NA 141 mEq/L 08/08/2015 Comp Metabolic Dzt783 K 3.3 mEq/L 08/08/2015 Comp Metabolic Vhb230 CL 102 mEq/L 08/08/2015 Comp Metabolic Rpd331 CO2 31.0 mEq/L 08/08/2015 Comp Metabolic Wwd304 AN ION GAP 11 08/08/2015 Comp Metabolic Nbo096 GL UCOSE 83 mg/dL 08/08/2015 Comp Metabolic Qma328 Cr eat 1.0 mg/dL 08/08/2015 Comp Metabolic Dzm242 eG FR 55 ml/min/1.73m2 08/08 Comp Metabolic Yfu514 BUN 19 mg/dL 08/08/2015 Comp Metabolic Ooc861 B/ C Ratio 18.3 Ratio 08/08/2015 Comp Metabolic Xlg438 CA LCIUM 8.9 mg/dL 08/08/2015 Comp Metabolic Ycs720 AL K PHOS 84 U/L 08/08/2015 Comp Metabolic Kuj406 T(SGOT) 20 U/L 08/08/2015 Comp Metabolic Thm876 AL T(SGPT) 18 U/L 08/08/2015 Comp Metabolic Pel481 BI LI T 0.6 mg/dL 08/08/2015 Comp Metabolic Dau797 AL BUMIN 3.3 g/dL 08/08/2015 Comp Metabolic Rul266 TP RO 5.9 g/dL 08/08/2015 Comp Metabolic Sqd699 GL OB 2.6 g/dL 08/08/2015 Comp Metabolic Jzx071 A/ G Ratio 1.3 Ratio 08/08/2015 Comp Metabolic Qbl045 Os mo 283 mOsmo 08/08/2015 Cbc With [...] 30.0 pg 08/08/2015 Cbc With Differential Ord2 [place]% 8.2 % 08/08/2015 Cbc With Differential Ord2 [...] 2.90 K/ul 08/08/2015 Cbc With Differential Ord2 [place] ABS# 0.9 K/ul 08/08/2015 Cbc With Differential [...] Ord93 BILI I 0.5 mg/dL 08/08/2015 Pt Oxl2876 PT 31.8 seconds 08/05/2015 Pt Tsx0379 INR 3.2 08/05/2015 Pt Leh5466 Low Intensity - 1.5-2.0 08/05/2015 Pt Pky3298 Mod intensity - 2.0-3.0 08/05/2015 Pt Oti3668 Hi intensity - 3.0-4.0 08/05/2015 Pt Ojb5285 PT 27.4 seconds 06/27/2015 Pt Toc0373 INR 2.6 06/27/2015 Pt Vtn8189 Low Intensity - 1.5-2.0 06/27/2015 Pt Jdk6566 Mod intensity - 2.0-3.0 06/27/2015 Pt Ipl9868 Hi intensity - 3.0-4.0 06/27/2015 Tsh Ord6 [...] Ord2 RDW 15.1 % 05/31/2015 Free T4 Fmy288 FREE T4 1.89 ng/dL 05/31/2015 Comp Metabolic Rdk864 NA 140 mEq/L 05/31/2015 Comp Metabolic Jfo762 K 3.3 mEq/L 05/31/2015 Comp Metabolic Mda019 CL 99 mEq/L 05/31/2015 Comp Metabolic Tmw930 CO2 30.0 mEq/L 05/31/2015 Comp Metabolic Yra395 AN ION GAP 14 05/31/2015 Comp Metabolic Qzg315 GL UCOSE 70 mg/dL 05/31/2015 Comp Metabolic Bcv804 Cr eat 1.0 mg/dL 05/31/2015 Comp Metabolic Cku839 eG FR 55 ml/min/1.73m2 05/31 Comp Metabolic Axk355 BUN 23 mg/dL 05/31/2015 Comp Metabolic Dnk784 B/ C Ratio 22.1 Ratio 05/31/2015 Comp Metabolic Uri260 CA LCIUM 8.9 mg/dL 05/31/2015 Comp Metabolic Hcu403 AL K PHOS 86 U/L 05/31/2015 Comp Metabolic Irk562 T(SGOT) 28 U/L 05/31/2015 Comp Metabolic Uzb256 AL T(SGPT) 30 U/L 05/31/2015 Comp Metabolic Wdd855 BI LI T 0.4 mg/dL 05/31/2015 Comp Metabolic Pow006 AL BUMIN 3.3 g/dL 05/31/2015 Comp Metabolic Jxt268 TP RO 6.0 g/dL 05/31/2015 Comp Metabolic Pzr001 GL OB 2.7 g/dL 05/31/2015 Comp Metabolic Lju482 A/ G Ratio 1.2 Ratio 05/31/2015 Comp Metabolic Xcp950 Os mo 282 mOsmo 05/31/2015 Pt Cuf6896 PT 23.3 seconds 04/15/2015 Pt Coc9692 INR 2.2 04/15/2015 Pt Mug3709 Low Intensity - 1.5-2.0 04/15/2015 Pt Red3849 Mod intensity - 2.0-3.0 04/15/2015 Pt Ink1139 Hi intensity - 3.0-4.0 04/15/2015 Pt Iub3876 PT 19.5 seconds 04/04/2015 Pt Ilp8738 INR 1.7 04/04/2015 Pt Ain4838 Low Intensity - 1.5-2.0 04/04/2015 Pt Jbe7010 Mod intensity - 2.0-3.0 04/04/2015 Pt Szg3420 Hi intensity - 3.0-4.0 04/04/2015 Pt Fbc5333 PT 39.8 seconds 04/01/2015 Pt Tos6676 INR 4.3 04/01/2015 Pt Ogf7836 Low Intensity - 1.5-2.0 04/01/2015 Pt Pgu6812 Mod intensity - 2.0-3.0 04/01/2015 Pt Xnn9476 Hi intensity - 3.0-4.0 04/01/2015 Metabolic Ord15 [...] Metabolic Ord15 CALCIUM 8.7 mg/dL 02/28/2015 Pt Pfu4770 PT 31.4 seconds 02/28/2015 Pt Gbo1279 INR 3.2 02/28/2015 Pt Pao8444 Low Intensity - 1.5-2.0 02/28/2015 Pt Djm6093 Mod intensity - 2.0-3.0 02/28/2015 Pt Qqb4844 Hi intensity - 3.0-4.0 02/28/2015 Pt Frh1690 PT 23.2 seconds 01/18/2015 Pt Fxa1580 INR 2.1 01/18/2015 Pt Ijh0574 Low Intensity - 1.5-2.0 01/18/2015 Pt Yxh8481 Mod intensity - 2.0-3.0 01/18/2015 Pt Yrl0103 Hi intensity - 3.0-4.0 01/18/2015 Pt Wip1463 PT 18.2 seconds 01/10/2015 Pt Ceh6283 INR 1.6 01/10/2015 Pt Ffj7705 Low Intensity - 1.5-2.0 01/10/2015 Pt Utn0111 Mod intensity - 2.0-3.0 01/10/2015 Pt Odp1122 Hi intensity - 3.0-4.0 01/10/2015 Review of [...] Date URINALYSIS NONAUTO W /O SCOPE CPT-4: 10067 01/10/2019 URINALYSIS NONAUTO W /O SCOPE CPT-4: 36652 12/05/2018 ROCEPHIN, PER 250 MG CPT-4: J0696 10/27/2018 URINALYSIS NONAUTO W /O SCOPE CPT-4: 06989 10/27/2018 ADMIN INFLUENZA VIRU S VAC CPT-4: G0008 03/24/2018 ADMIN PNEUMOCOCCAL V ACCINE SNOMED CT: 94768936 CPT-4: G0009 03/24/2018 FLU VACC PRSV FREE I NC ANTIG Formatting Model/CDA Sections, Assigned to/Dorothea Tan CPT-4: 42123Edvahix 03/24/2018 Pneumococcal Polysac charide Vaccine, 23-Valent, Ad CPT-4: 79186 03/24/2018 TRIAMCINOLONE ACET I [place] NOS CPT-4: J3301 06/15/2017 THER/PROPH/DIAG INJ SC/IM CPT-4: 70157 06/15/2017 ADMIN PNEUMOCOCCAL V ACCINE SNOMED CT: 84640012 CPT-4: G0009 03/16/2017 ADMIN INFLUENZA VIRU S VAC CPT-4: G0008 03/16/2017 FLU VAC NO PRSV 4 VA L 3 YRS+ CPT-4: 55796 03/16/2017 PNEUMOCOCCAL VACC [address]: 84164093 CPT-4: 70086 03/16/2017 URINALYSIS NONAUTO W /O SCOPE CPT-4: 11386 08/26/2016 THER/PROPH/DIAG INJ SC/IM CPT-4: 86588 07/22/2016 TRIAMCINOLONE ACET I [place] NOS CPT-4: J3301 07/22/2016 ROCEPHIN, PER 250 MG CPT-4: J0696 07/22/2016 TRIAMCINOLONE ACET I [place] NOS CPT-4: J3301 02/05/2015 Vital Signs Date Vital 01/10/2019 BMI: 32.9 Code: 59479-6 Heart Rate 1: 74 bpm Height: 5'7" Weight: 210 lbs 12/05/2018 Blood Pressure 1: 132/70 Code: 8480-6 BMI: 32.4 Code: 67561-3 Heart Rate 1: 84 bpm Height: 5'7" SpO2: 91% Weight: 207 lbs 11/17/2018 Blood Pressure 1: 102/62 Code: 8480-6 BMI: 32.4 Code: 44296-7 Heart Rate 1: 83 bpm Height: 5'7" SpO2: 94% Weight: 207 lbs 10/27/2018 Blood Pressure 1: 120/74 Code: 8480-6 BMI: 32.4 Code: 36390-4 Heart Rate 1: 65 bpm Height: 5'7" SpO2: 97% Weight: 207 lbs 09/27/2018 Blood Pressure 1: 128/74 Code: 8480-6 BMI: 32.4 Code: 92253-4 Heart Rate 1: 92 bpm Height: 5'7" SpO2: 97% Weight: 207 lbs 08/16/2018 Blood Pressure 1: 104/66 Code: 8480-6 BMI: 32.3 Code: 20195-2 Heart Rate 1: 94 bpm Height: 5'7" SpO2: 96% Weight: 206 lbs 07/11/2018 Blood Pressure 1: 102/68 Code: 8480-6 BMI: 34.5 Code: 48182-8 Heart Rate 1: 101 bpm Height: 5'7" SpO2: 98% Weight: 220 lbs 03/24/2018 Blood Pressure 1: 130/72 Code: 8480-6 BMI: 33.4 Code: 97464-2 Heart Rate 1: 82 bpm Height: 5'7" SpO2: 93% Weight: 213 lbs 11/18/2017 Blood Pressure 1: 128/70 Code: 8480-6 BMI: 33.6 Code: 60425-1 Heart Rate 1: 98 bpm Height: 5'7" SpO2: 97% Weight: 214 lbs 8 oz 09/30/2017 Blood Pressure 1: 100/50 Code: 8480-6 BMI: 34.0 Code: 16788-0 Heart Rate 1: 66 bpm Height: 5'7" SpO2: 96% Weight: 217 lbs 08/17/2017 Blood Pressure 1: 104/60 Code: 8480-6 BMI: 33.7 Code: 89550-9 Heart Rate 1: 99 bpm Height: 5'7" SpO2: 97% Weight: 215 lbs 06/15/2017 Blood Pressure 1: 120/64 Code: 8480-6 BMI: 33.5 Code: 29814-2 Heart Rate 1: 91 bpm Height: 5'7" SpO2: 94% Weight: 214 lbs 04/01/2017 Blood Pressure 1: 110/68 Code: 8480-6 BMI: 154.4 Code: 93509-9 Heart Rate 1: 66 bpm Height: 2'7" SpO2: 95% Weight: 211 lbs 03/16/2017 Blood Pressure 1: 130/72 Code: 8480-6 BMI: 33.0 Code: 24261-4 Heart Rate 1: 95 bpm Height: 5'7" SpO2: 97% Weight: 211 lbs 02/09/2017 Blood Pressure 1: 120/70 Code: 8480-6 BMI: 32.9 Code: 49566-1 Heart Rate 1: 78 bpm Height: 5'7" SpO2: 96% Weight: 210 lbs 10/13/2016 Blood Pressure 1: 118/76 Code: 8480-6 BMI: 32.6 Code: 33017-2 Heart Rate 1: 97 bpm Height: 5'7" SpO2: 98% Weight: 208 lbs 07/31/2016 Blood Pressure 1: 110/64 Code: 8480-6 BMI: 32.1 Code: 99312-5 Heart Rate 1: 79 bpm Height: 5'7" SpO2: 94% Weight: 205 lbs 07/22/2016 Blood Pressure 1: 108/74 Code: 8480-6 BMI: 32.1 Code: 64280-1 Heart Rate 1: 71 bpm Height: 5'7" SpO2: 97% Temperature: 36.9 (C ) / 98.4 (F) Weight: 205 lbs 05/01/2016 Blood Pressure 1: 120/72 Code: 8480-6 BMI: 32.7 Code: 70018-8 Heart Rate 1: 75 bpm Height: 5'7" SpO2: 94% Weight: 209 lbs 04/06/2016 Blood Pressure 1: 106/62 Code: 8480-6 BMI: 32.7 Code: 77188-0 Heart Rate 1: 83 bpm Height: 5'7" SpO2: 97% Weight: 209 lbs 03/06/2016 Blood Pressure 1: 112/68 Code: 8480-6 BMI: 32.7 Code: 01417-2 Heart Rate 1: 90 bpm Height: 5'7" SpO2: 97% Weight: 209 lbs 03/03/2016 Blood Pressure 1: 120/62 Code: 8480-6 BMI: 32.7 Code: 09594-5 Heart Rate 1: 92 bpm Height: 5'7" SpO2: 98% Weight: 209 lbs 02/07/2016 Blood Pressure 1: 110/64 Code: 8480-6 BMI: 32.7 Code: 19463-1 Heart Rate 1: 87 bpm Height: 5'7" SpO2: 97% Weight: 209 lbs 12/13/2015 Blood Pressure 1: 110/64 Code: 8480-6 BMI: 33.5 Code: 08540-6 Heart Rate 1: 90 bpm Height: 5'7" SpO2: 97% Weight: 214 lbs 12/03/2015 Blood Pressure 1: 132/76 Code: 8480-6 BMI: 33.4 Code: 23022-4 Heart Rate 1: 82 bpm Height: 5'7" SpO2: 99% Weight: 213 lbs 11/20/2015 Blood Pressure 1: 108/68 Code: 8480-6 BMI: 32.4 Code: 73468-1 Heart Rate 1: 77 bpm Height: 5'7" SpO2: 97% Weight: 207 lbs 09/17/2015 Blood Pressure 1: 122/76 Code: 8480-6 BMI: 33.0 Code: 57214-8 Heart Rate 1: 91 bpm Height: 5'7" SpO2: 97% Weight: 211 lbs 05/31/2015 Blood Pressure 1: 128/82 Code: 8480-6 BMI: 33.4 Code: 84419-4 Heart Rate 1: 98 bpm Height: 5'7" SpO2: 99% Weight: 213 lbs 02/05/2015 Blood Pressure 1: 128/80 Code: 8480-6 BMI: 32.6 Code: 07290-0 Heart Rate 1: 86 bpm Height: 5'7" SpO2: 97% Weight: 208 lbs 11/20/2014 Blood Pressure 1: 128/90 Code: 8480-6 BMI: 30.9 Code: 74852-6 Heart Rate 1: 94 bpm Height: 5'7" [...] Findings Denies fever 05/31/2015 None 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 P ATIENT, LEVEL III Diagnosis: Urinary tract infection, site not specified[ICD10: N39.0] Brielle Pisano MD, [facility] CPT-4: 34185 12/05/2018 ([id number]) 75213 EST. P ATIENT, LEVEL III Diagnosis: Contusion of right lower leg, initial encounter[ICD10: S80.11XA] Diagnosis: custodial (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[ICD10: Z79.01] Brielle Pisano MD, [facility] CPT-4: 10530 11/17/2018 ([id number]) 45818 EST. P ATIENT, LEVEL III Diagnosis: Urinary tract infection, site not specified[ICD10: N39.0] Brielle Pisano MD, [facility] CPT-4: 79396 10/27/2018 ([id number]) 04596 EST. 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 P ATIENT, LEVEL IV Diagnosis: Essential (primary) hypertension[ICD10: I10] Diagnosis: Atrophy of thyroid (acquired)[ICD10: E03.4] Diagnosis: Sebaceous cyst[ICD10: L72.3] Diagnosis: Chronic atrial fibrillation[ICD10: I48.2] Diagnosis: custodial (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[ICD10: Z79.01] Valerie P[facility]ano [facility] CPT-4: 64551 08/16/2018 ([id number]) 01087 EST. P ATIENT, LEVEL IV Diagnosis: Atrophy of thyroid (acquired)[ICD10: E03.4] Diagnosis: Essential (primary) hypertension[ICD10: I10] Diagnosis: Other fatigue[ICD10: R53.83] Diagnosis: Localized edema[ICD10: R60.0] Valerie Pisano MD, [facility] CPT-4: 77254 07/11/2018 ([id number]) 72466 EST. P ATIENT, LEVEL IV Diagnosis: Essential (primary) hypertension[ICD10: I10] Diagnosis: Atrophy of thyroid (acquired)[ICD10: E03.4] Diagnosis: Chronic atrial fibrillation[ICD10: I48.2] Valerie Pisano MD, [facility] CPT-4: 06076 03/24/2018 ([id number]) 75815 EST. P ATIENT, LEVEL IV Diagnosis: Essential (primary) hypertension[ICD10: I10] Diagnosis: Atrophy of thyroid (acquired)[ICD10: E03.4] Diagnosis: Chronic atrial fibrillation[ICD10: I48.2] Valerie Pisano MD, [facility] CPT-4: 19665 11/18/2017 06248 EST. PATIENT, LEVEL IV Diagnosis: Localized edema[ICD10: R60.0] Roxie Pisano MD, [facility] CPT-4: 51144 09/30/2017 ([id number]) 86095 EST. P ATIENT, LEVEL III Diagnosis: Essential (primary) hypertension[ICD10: I10] Valerie Pisano MD, [facility] CPT-4: 49831 08/17/2017 ([id number]) 49514 EST. P ATIENT, LEVEL IV Diagnosis: Essential (primary) hypertension[ICD10: I10] Diagnosis: Atrophy of thyroid (acquired)[ICD10: E03.4] Diagnosis: Chronic atrial fibrillation[ICD10: I48.2] Diagnosis: Cervicalgia[ICD10: M54.2] Diagnosis: Other muscle spasm[ICD10: M62.838] Valerie Pisano MD, [facility] CPT- 4: 58324 06/15/2017 [id number] EST. PATIENT, LEVEL III Diagnosis: Laceration without foreign body of other finger without damage to nail, initial encounter[ICD10: S61.218A] Roxie Pisano MD, [facility] CPT-4: 38864 04/01/2017 ([id number]) 84196 EST. 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 P ATIENT, LEVEL IV Diagnosis: Chronic atrial fibrillation[ICD10: I48.2] Diagnosis: Essential (primary) hypertension[ICD10: I10] Diagnosis: Other fatigue[ICD10: R53.83] Diagnosis: custodial (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[ICD10: Z79.01] Diagnosis: Atrophy of thyroid (acquired)[ICD10: E03.4] Valerie Pisano MD, C CPT-4: 85509 02/09/2017 ([id number]) 40812 EST. [facility], L[facility] Diagnosis: Essential (primary) hypertension[ICD10: I10] Diagnosis: Chronic atrial fibrillation[ICD10: I48.2] Diagnosis: Tinea corporis[ICD10: B35.4] Diagnosis: custodial (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[ICD10: Z79.01] Diagnosis: Other skin changes[ICD10: R23.8] Valerie Pisano MD, [facility] CPT-4: 01157 10/13/2016 45519 EST. PATIENT, LEVEL III Diagnosis: Other acute sinusitis[ICD10: J01.80] Diagnosis: Other allergic rhinitis[ICD10: J30.89] Roxie Pisano MD, [facility] CPT-4: 94011 07/31/2016 ([id number]) 77981 EST. [facility] Diagnosis: Acute recurrent maxillary sinusitis[ICD10: J01.01] Valerie Pisano MD, C CPT-4: 63222 07/22/2016 38140 EST. PATIENT, LEVEL IV Diagnosis: Essential (primary) hypertension[ICD10: I10] Diagnosis: Other allergic rhinitis[ICD10: J30.89] Diagnosis: Localized edema[ICD10: R60.0] Roxie Pisano MD, [facility] CPT-4: 63123 05/01/2016 11386 EST. PATIENT, LEVEL III Diagnosis: Cellulitis of left lower limb[ICD10: L03.116] Diagnosis: Localized edema[ICD10: R60.0] Roxie Pisano MD, [facility] CPT-4: 49122 04/06/2016 ([id number]) Miscellaneou s no charge Diagnosis: Cellulitis of left lower limb[ICD10: L03.116] Diagnosis: Localized edema[ICD10: R60.0] Roxie Pisano MD, [facility] CPT-4: 22620 03/10/2016 ([id number]) Miscellaneou s no charge Diagnosis: Cellulitis of left lower limb[ICD10: L03.116] Roxie Pisano MD, [facility] CPT-4: 41539 03/06/2016 61050 EST. PATIENT, LEVEL IV Diagnosis: Cellulitis of left lower limb[ICD10: L03.116] Diagnosis: Localized edema[ICD10: R60.0] Roxie Pisano MD, [facility] CPT-4: 10644 03/03/2016 ([id number]) 99740 EST. P ATIENT, LEVEL III Diagnosis: Essential (primary) hypertension[ICD10: I10] Diagnosis: custodial (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[ICD10: Z79.01] Diagnosis: Chronic atrial fibrillation[ICD10: I48.2] Brielle Pisano MD, [facility] CPT-4: 53069 02/07/2016 ([id number]) 79290 EST. P ATIENT, LEVEL III Diagnosis: Iliotibial band syndrome, right leg[ICD10: M76.31] Diagnosis: Localized edema[ICD10: R60.0] Brielle Pisano MD, [facility] CPT- 4: 71093 12/13/2015 ([id number]) 37632 EST. P ATIENT, LEVEL III Diagnosis: Localized edema[ICD10: R60.0] Diagnosis: Essential (primary) hypertension[ICD10: I10] Brielle Pisano MD, [facility] CPT-4: 41927 12/03/2015 ([id number]) 40893 EST. 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 PATIENT, LEVEL IV Diagnosis: Essential (primary) hypertension[ICD10: I10] Diagnosis: custodial (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[ICD10: Z79.01] Diagnosis: Muscle spasm of back[ICD10: M62.830] [facility] CPT- 4: 71053 09/17/2015 ([id number]) 25870 EST. P ATIENT, LEVEL IV Diagnosis: Localized edema[ICD10: R60.0] Diagnosis: Other specified hypothyroidism[ICD10: E03.8] Diagnosis: Essential (primary) hypertension[ICD10: I10] [facility] CPT-4: 66531 05/31/2015 ([id number]) 99823 EST. P ATIENT, LEVEL III Diagnosis: ALLERGIC RHINITIS[ICD9: 477.9] Diagnosis: ESSENTIAL HYPERTENSION[ICD9: 401.9] Brielle Pisano MD, [facility] CPT-4: 80873 02/05/2015 ([id number]) OFFICE VISI , [facility] - LEVEL 4 Diagnosis: ESSENTIAL HYPERTENSION[ICD9: 401.9] Diagnosis: HYPOTHYROIDISM[ICD9: 244.9] Diagnosis: ACTINIC KERATOSIS[ICD9: 702.0] Valerie Pisano MD, [facility] CPT-4: 82851 11/20/2014 Plan of Care Planned Activity Notes [...] not improve. 12/05/2018 Appointment: Brielle Cavazos WPtel: [address] [place], [place] [phone] (30 min) Complex 12/05/2018 Patient Education: Patient Medication Summary Completed 12/05/2018 Care Plan: Urine Culture Pending 12/05/2018 Visit Plan: Contusion -right lower leg -continue to monitor symptoms -call if does not resolve or other symptoms develop. Patient verbalized understanding of plan. 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 Antibiotic electronically prescribed to pt's pharmacy of choice. Pt to call if symptoms do not improve. 10/27/2018 Appointment: [phone] (10 min) Simple 10/27/2018 Patient Education: Patient [...] with Dr. Hernandez. 09/27/2018 Appointment: NorrisValerie WPtel: [address] [place], [place] [phone] (15 min) Moderate 09/27/2018 Patient Education: Patient [...] to 4mg daily. 08/16/2018 Appointment: NorrisValerie WPtel: [address] [place], [place] [phone] (15 min) Moderate 08/16/2018 Patient Education: Patient Medication Summary Completed 08/16/2018 Patient Education: Hypertension Completed 08/16/2018 Patient Education: Patient Medication Summary Completed 07/29/2018 Appointment: Brielle Cavazos WPtel: [facility]5 [phone] [place] (15 min) Moderate 07/12/2018 Visit Plan: [...] daily. 07/11/2018 Appointment: Valerie Pisano WPtel: [phone] [facility] (15 min) Moderate 07/11/2018 Patient Education: [...] given today. 03/24/2018 Appointment: [facility]el[phone] (15 min) Moderate 03/24/2018 Patient Education: [...] control. 11/18/2017 Appointment: Valerie Pisano WPtel: [phone] [facility] (15 min) Moderate 11/18/2017 Patient Education: Patient Medication Summary Completed 11/18/2017 Referral: [facility] WPtel: [address] [place], [place] [phone] Pt notified at appointment Appointment Confirmed 10/01/2017 [...] Unna Boots 09/30/2017 Appointment: Roxie Cazares WPtel: [facility] (30 min) Complex 09/30/2017 Patient Education: Patient Medication Summary Completed 09/30/2017 Care Plan: Referral Order SNOMED-CT : [id number] Pending 09/30/2017 Visit Plan: Hypertension - well [...] this time. 08/17/2017 Appointment: Val[facility]el[phone] (15 min) Moderate 08/17/2017 Patient Education: [...] neck muscles. allergies - kenalog 40mg im [employer] - lot # [id number] expires september 2018 06/15/2017 Visit Plan: Hypertension [...] neck muscles. 06/15/2017 Appointment: Valerie [facility]ano WPtel: [phone] (15 min) Moderate 06/15/2017 Patient Education: Patient Medication Summary Completed 06/15/2017 Care Plan: Referral Order SNOMED-CT : [id number] Pending 06/15/2017 Appointment: Nurse Visit 04/05/2017 Appointment: [...] tetanus booster. 04/01/2017 Appointment: Roxie Cazares WPtel: [phone] [phone] (15 min) Moderate 04/01/2017 Patient Education: Patient [...] shot today 03/16/2017 Appointment: Valerie [facility]ano [facility]Ptel: [phone] (15 min) Moderate 03/16/2017 Patient Education: [...] allergy spray. 02/09/2017 Appointment: Val[facility]Ptel[phone] (15 min) Moderate 02/09/2017 Patient Education: [...] for nystatin 10/13/2016 Appointment: Val[facility]Ptel[phone] (15 min) Moderate 10/13/2016 Patient Education: Patient Medication Summary Completed 10/13/2016 Patient Education: Obesity Completed 10/13/2016 Patient Education: Hypertension Completed 10/13/2016 Care Plan: Urine Culture Pending 08/31/2016 Appointment: Roxie Cazares WPtel: [phone] [facility] Lab Draw 08/27/2016 Appointment: Nurse Visit 08/26/2016 [...] allergy spray. 07/31/2016 Appointment: Brielle Cavazos WPtel: [phone] [phone] (30 min) Complex 07/31/2016 Patient Education: Patient Medication Summary Completed 07/31/2016 Patient Education: Obesity Completed 07/31/2016 Visit Plan: Sinusitis - Pt has acut e infection - pain in face, maxillary region, Pt informed to use decongestant, RX given to patient, sinus rinses also recommended. Call if symptoms do not show improvement. 07/22/2016 Appointment: Valerie Pisano WPtel: [phone] [facility] (15 min) Moderate 07/22/2016 Patient Education: Patient [...] edema. 05/01/2016 Appointment: Brielle Cavazos WPtel: [phone] [phone] (30 min) Complex 05/01/2016 Patient Education: Patient [...] edema. 04/06/2016 Appointment: Roxie Cazares WPtel: [phone] [phone] (30 min) Complex 04/06/2016 Patient Education: Patient Medication Summary Completed 04/06/2016 Patient Education: Obesity Completed 04/06/2016 Visit Plan: left foot - improved - pt finished with antibiotics - continue to monitor - notify clinic with any concerns. Repeat INR today. 03/10/2016 Appointment: Brielle Cavazos WPtel: [phone] [phone] (30 min) Complex 03/10/2016 Patient Education: Patient Medication Summary Completed 03/10/2016 Visit Plan: Cellulitis - continue w ith oral antibiotics as previously directed, return to clinic as previously directed, call for acute change in symptoms, worsening redness, warmth, discharge. 03/06/2016 Appointment: Brielle Cavazos WPtel: [facility]8 [phone] (15 min) Moderate 03/06/2016 Patient Education: Patient Medication Summary Completed 03/06/2016 Patient Education: Obesity Completed 03/06/2016 Visit Plan: Cellulitis - continue w ith oral antibiotics as previously directed, return to clinic as previously directed, call for acute change in symptoms, worsening redness, warmth, discharge. 03/03/2016 Appointment: Brielle Cavazos WPtel: [facility]6 [phone] (15 min) Moderate 03/03/2016 Patient Education: Patient [...] Brielle Cavazos WPtel: [phone] (30 min) Complex 02/07/2016 Patient Education: Patient Medication Summary Completed 02/07/2016 Patient Education: Obesity Completed 02/07/2016 Patient Education: Hypertension Completed 02/07/2016 Appointment: Brielle Cavazos WPtel: [facility]2 [phone] (30 min) Complex 02/04/2016 Visit Plan: Iliotibial [...] edema. 12/13/2015 Appointment: Brielle Cavazos WPtel: [phone] [phone] (15 min) Moderate 12/13/2015 Patient Education: [...] Cavazos WPtel: [facility]5 [phone] (30 min) Complex 12/03/2015 Patient Education: Patient [...] Pisano WPtel: [facility]5 [facility] (15 min) Moderate 01/29/2015 Visit Plan: Hypertension [...] of control. 11/20/2014 Appointment: Valerie Pisano WPtel: [facility]8 [facility] [place] ([place]) New Patient 11/20/2014 Patient Education: Patient Medication Summary Completed 11/20/2014 Patient Education: Hypertension Completed 11/20/2014 Patient Education: Patient Medication Summary Completed 10/19/2014 Referral: [facility] WPtel: Referral Appointment Requested Referral: [facility] WPtel: [address] [place] [id number] Referral Appointment Confirmed Instructions Comment . UTI [...] twice daily. get blood work one w [place] before next appt - fasting labs Decrease [...] therapy - will refer to [facility] physical therapy. RX for voltaren to neck muscles. allergies - kenalog 40mg im [employer] - lot # [id number] expires september 2018 . Hypertension - wel [...] therapy - will refer to [facility] physical therapy. RX for voltaren to neck [...] symptoms develop. Patient verbalized understanding of plan. 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 [...]
--- OUTSIDE RECORDS SUMMARY | 2019-09-12 10:52 | XMS REPORT | CCD ---
Author Author Clara Pisano Organization Valerie Pisano MD, [facility] Address [address] [place] [address] Phone Care Team Providers Care [place] [employer] Concierge Name Role Phone PP Unavailable CCM Unavailable Summary Purpose Interface Exchange Insurance Providers Payer name Policy type / Coverage type Covered libertarian ID Effective Begin Date Effective End Date WPS Medicare Part B Medicare Part B [id number] 2018 Unknown [employer] Medicare Part B [id number] 2018 Unknown Family history Sister Diagnosis Age At Onset defect Unknown Breast cancer Unknown Daughter Diagnosis Age At Onset Breast cancer Unknown Mother Diagnosis Age At Onset No Family Disease Entered N/A Social History Social History Element Codes Description Effective Dates Marital status Unknown M arried Lane 11/20/2014 Number of children Unknown 6 11/20/2014 Employment Unknown Retir ed 11/20/[address]: 5749459 Quit over 10 years ago 1963 11/20/2014 Alcohol history Unknown occasionally drinks alcohol 11/20/2014 Allergies, Adverse Reactions, Alerts Substance Reaction Codes Entered Date Inactivated Date Status SULFA(SULFONAMIDE AN TIBIOTICS) rash Unknown 11/20/2014 No Inactive Date Active Past Medical History Illness Codes Condition Status Onset Date Resolved Date Urinary tract infect ion, site not specified ICD-9: 599.0 ICD-10: N39.0 Active 02/13/2016 Unknown Contusion of right l ower leg, initial encounter ICD-9: 924.4 ICD-10: S80.11XA 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/2018 Unknown manager 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 (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 ICD-9: V58.61 ICD-10: [...] ICD-9: 110.5 ICD-10: B35.4 Active 10/13/2016 Unknown Dysuria ICD-9: 788.1 ICD-10: R30.0 Active 08/26/2016 Unknown Other acute sinusitis ICD-9: 461.8 ICD-10: [...] Unknown HYPOTHYROIDISM ICD-9: 244.9 Active 11/19/2014 Unknown senior living current us 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 therapy ICD-9: V58.61 Active 10/19/2014 Unknown Problems Condition Codes Effectiv e Dates Condition Status Urinary tract infect ion, site not specified ICD-9: 599.0 ICD-10: N39.0 02/13/2016 Active Contusion of right l ower leg, initial encounter ICD-9: 924.4 ICD-10: S80.11XA 11/17/2018 Active senior living (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 ICD-9: V58.61 ICD-10: [...] corporis ICD-9: 110.5 ICD-10: B35.4 10/13/2016 Active Dysuria ICD-9: 788.1 ICD-10: R30.0 08/26/2016 Active Other acute sinusitis ICD-9: 461.8 ICD-10: [...] 11/19/2014 Active HYPOTHYROIDISM ICD-9: 244.9 11/19/2014 Active manager terminal current us 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 therapy ICD-9: V58.61 10/19/2014 Active Medications Medication Codes Instruc tions Start Date Stop Date Sta Fill Instructions Keflex 500 mg capsule RxNorm: 229295 1 Capsule(s) PO TID 12/05/2018 12/11/2018 Active Pyridium 200 mg tablet RxNorm: 3437067 1 Tablet(s) PO TID PRN 12/05/2018 No Stop Date Active Keflex 500 mg capsule RxNorm: 976631 1 Capsule(s) PO TID 11/17/2018 11/21/2018 Inactive doxycycline hyclate 100 mg capsule RxNorm: 5586511 1 Capsule(s) PO BID 10/31/2018 10/30/2018 In active doxycycline hyclate 100 mg capsule RxNorm: 8592642 1 Capsule(s) PO BID 10/31/2018 11/06/2018 In active Keflex 500 mg capsule RxNorm: 829894 1 Capsule(s) PO TID 10/27/2018 10/30/2018 Inactive ceftriaxone 500 mg s olution for injection RxNorm: 8131336 Inj 10/27/2018 10/27/2018 Inactive Coumadin 4 mg tablet RxNorm: 739353 1 Tablet(s) PO daily 08/16/2018 08/10/2019 Active this is an update to her RX - she will l et you know when she needs refill triamcinolone aceton sreekanth 0.025 % topical cream RxNorm: 9179962 1 Application TOP QI D 08/16/2018 No Stop Date Active levothyroxine 125 mc g tablet RxNorm: 956057 TAKE ONE TABLET BY MO [facility] DAILY ON WEDNESDAY, WED, AND WEDNESDAY, AND 1/2 TABLET ON ., , WED AND CYRIL. TAKE ON AN EMPTY STOMACH 08/04/2018 04/30/2019 Active meclizine 25 mg tablet RxNorm: 973251 1 Tablet(s) PO TID as needed Dizziness 07/22/2018 No Stop Date Active meclizine 25 mg tablet RxNorm: 181458 1 Tablet(s) PO TID as needed Dizziness 07/19/2018 07/21/2018 In active furosemide 40 mg tablet RxNorm: 651539 1 Tablet(s) BID take 1.5 tabs twice a da y x 7 days then 1 pill daily thereafter 07/11/2018 02/05/2019 Active Coumadin 4 mg tablet RxNorm: 658545 1 Tablet(s) PO daily except 1.5 pills on WEDNESDAY AND Wednesday07/11/2018 08/15/2018 Inactive this is an update to her RX - she will let you know when she needs refill warfarin 5 mg tablet RxNorm: 652441 Tablet(s) TAKE ONE TABLET BY MOUTH DAILY EXCEPT / TAKE 4 MG 04/06/2018 08/22/2019 Active diltiazem 60 mg tablet RxNorm: 030129 1/2 Tablet(s) PO QID 03/24/2018 No Stop Date Active levothyroxine 125 mc g tablet RxNorm: 863644 TAKE ONE TABLET BY [facility] DAILY ON WEDNESDAY, WED, AND WEDNESDAY, AND 1/2 TABLET ON , , WED AND WEDNESDAY. TAKE ON AN EMPTY STOMACH 02/02/2018 07/31/2018 Inactive Coumadin 4 mg tablet RxNorm: 284047 TAKE ONE TABLET BY MOUTH DAILY ON AND Wednesday10/14/2017 07/10/2018 Inactive nystatin 100,000 uni t/gram topical cream RxNorm: 194158 1 Application TOP TID 08/17/2017 No Stop Date Active Voltaren 1 % topical gel RxNorm: 501498 2 Gram(s) TOP TID luiz ly to shoulder and neck 08/17/2017 No Stop Date Active triamcinolone aceton sreekanth 0.025 % topical cream RxNorm: 8678691 1 Application TOP BI D 08/17/2017 08/15/2018 In active levothyroxine 125 mc g tablet RxNorm: 268140 1 Tablet(s) UD 1 pill wed/wed/wed, 1/2 pill //sat/sun take ON AN EMPTY STOMACH 08/05/2017 02/01/2018 Inactive Coumadin 4 mg tablet RxNorm: 824100 1 Tablet(s) PO Wed/07/29/2017 10/13/2017 Inactive warfarin 5 mg tablet RxNorm: 860831 TAKE 1 AND 1/2 TABLETS BY MOUTH ON AND WEDNESDAY. TAKE ONLY 1 TABLET BY MOUTH ALL OTHER DAYS OF THE WEEK 07/12/2017 04/05/2018 In active furosemide 40 mg tablet RxNorm: 702227 Tablet(s) BID TAKE ONE TABLET BY MOUTH D AILY 06/15/2017 07/10/2018 Inactive Voltaren 1 % topical gel RxNorm: 363159 2 Gram(s) TOP TID luiz ly to shoulder and neck 06/15/2017 08/16/2017 Inactive Keflex 500 mg capsule RxNorm: 817161 1 Capsule(s) PO TID 04/01/2017 04/07/2017 Inactive furosemide 40 mg tablet RxNorm: 101770 TAKE ONE TABLET BY MOUTH DAILY 03/18/2017 06/14/2017 In active Claritin-D 12 Hour 5 mg-120 mg tablet,extended release RxNorm: 7378008 1 Tablet(s) PO BID 03/16/2017 05/14/2017 Inactive Lipitor 20 mg tablet RxNorm: 527368 1 Tablet(s) PO daily 02/09/2017 03/10/2017 Inactive lisinopril 2.5 mg ta blet RxNorm: 077872 1 Tablet(s) PO daily 02/09/2017 03/10/2017 Inactive Nasonex 50 mcg/actua tion [place] RxNorm: 6238155 1 [place] NASAL BID 02/09/2017 09/06/2017 Inactive levothyroxine 125 mc g tablet RxNorm: 784991 1 Tablet(s) UD 1 pill wed/wed/wed, 1/2 pill //sat/sun take ON AN EMPTY STOMACH 02/09/2017 08/04/2017 Inactive fluorouracil 5 % top ical cream RxNorm: 778795 1 Application TOP BID 02/09/2017 02/18/2017 Inactive potassium chloride E R 20 mEq tablet,extended release RxNorm: 303890 Tablet(s) TAKE ONE TABLET BY MOUTH DAILY 02/08/2017 02/02/2018 Inactive warfarin 5 mg tablet RxNorm: 992424 TAKE 1 AND 1/2 TABLETS BY MOUTH ON AND WEDNESDAY. TAKE ONLY 1 TABLET BY MOUTH ALL OTHER DAYS OF THE WEEK 12/14/2016 05/30/2017 In active potassium chloride E R 20 mEq tablet,extended release RxNorm: 651960 TAKE ONE TABLET BY MOUTH DAILY 10/29/2016 01/26/2017 Inactive warfarin 5 mg tablet RxNorm: 303184 TAKE 1 AND 1/2 TABLETS BY MOUTH ON AND WEDNESDAY. TAKE ONLY 1 TABLET BY MOUTH ALL OTHER DAYS OF THE WEEK 10/27/2016 12/13/2016 In active nystatin 100,000 uni t/gram topical cream RxNorm: 801849 1 Application TOP TID 10/13/2016 08/16/2017 In active nitrofurantoin 50 mg capsule RxNorm: 708965 1 Capsule(s) PO BID 09/04/2016 09/03/2016 Inactive nitrofurantoin macro crystal 50 mg capsule RxNorm: 829570 1 Capsule(s) PO BID 09/04/2016 09/10/2016 In active Cipro 500 mg tablet RxNorm: 448478 1 Tablet(s) PO BID 08/26/2016 10/12/2016 Inactive Zyrtec 10 mg tablet RxNorm: 8127697 1 Tablet(s) PO daily 07/31/2016 08/29/2016 Inactive prednisone 20 mg tablet RxNorm: 454132 2 Tablet(s) PO daily 07/31/2016 08/02/2016 Inactive Kenalog 40 mg/mL zohra pension for injection RxNorm: 2064650 Milliliter(s) Inj 07/22/2016 07/22/2016 In active ceftriaxone 500 mg s olution for injection RxNorm: 7979954 Inj 07/22/2016 07/22/2016 Inactive Flonase Allergy Reli ef 50 mcg/actuation nasal spray,suspension RxNorm: 1513100 1 [place] NASAL BID 07/22/2016 08/20/2016 Inactive azithromycin 250 mg tablet RxNorm: 564698 2 Tablet(s) PO on day #1, then 1 pill daily x 4 days 07/22/2016 10/12/2016 Inactive warfarin 5 mg tablet RxNorm: 547426 TAKE 1 AND 1/2 TABLETS BY MOUTH ON AND WEDNESDAY. TAKE ONLY 1 TABLET BY MOUTH ALL OTHER DAYS OF THE WEEK 07/09/2016 09/30/2016 In active levothyroxine 125 mc g tablet RxNorm: 798222 Tablet(s) TAKE ONE TA BLET BY MOUTH DAILY ON AN EMPTY STOMACH 06/23/2016 02/08/2017 Inactive levothyroxine 125 mc g tablet RxNorm: 264288 TAKE ONE TABLET BY MO U[facility] DAILY ON AN EMPTY STOMACH 06/23/2016 06/22/2016 Inactive levothyroxine 125 mc g tablet RxNorm: 057139 TAKE ONE TABLET BY MO UTH DAILY ON AN EMPTY STOMACH 06/23/2016 08/04/2017 Inactive cetirizine 10 mg tablet RxNorm: 0574376 TAKE ONE TABLET BY MOUTH DAILY 06/16/2016 10/13/2016 In active furosemide 40 mg tablet RxNorm: 809286 Tablet(s) TAKE ONE TABLET BY MOUTH DAILY 06/05/2016 12/01/2016 In active cetirizine 10 mg tablet RxNorm: 4033128 1 Tablet(s) PO daily 05/01/2016 05/30/2016 Inactive Levaquin 250 mg tablet RxNorm: 320666 Tablet(s) PO 2 pills day one and 1 pill day 2-7 04/06/2016 07/21/2016 Inactive warfarin 5 mg tablet RxNorm: 701450 Tablet(s) 1/2 TABLETS BY MOUTH ON AND WEDNESDAY. TAKE ONLY 1 TABLET BY MOUTH ALL OTHER DAYS OF THE WEEK 03/18/2016 07/07/2016 In active triamcinolone aceton sreekanth 0.025 % topical cream RxNorm: 8584659 1 Application TOP BI D 03/10/2016 08/16/2017 In active potassium chloride E R 20 mEq tablet,extended release RxNorm: 202831 1 Tablet(s) PO daily 03/04/2016 06/01/2016 Inactive Levaquin 250 mg tablet RxNorm: 091595 Tablet(s) PO 2 pills day one and 1 pill day 2-7 03/04/2016 04/05/2016 Inactive Levaquin 250 mg tablet RxNorm: 290833 Tablet(s) PO 2 pills day one and 1 pill day 2-7 03/03/2016 03/03/2016 Inactive potassium chloride E R 20 mEq tablet,extended release RxNorm: 220399 1 Tablet(s) PO daily 03/03/2016 03/03/2016 Inactive Cipro 500 mg tablet RxNorm: 148053 1 Tablet(s) PO BID 02/20/2016 07/21/2016 Inactive Cipro 500 mg tablet RxNorm: 377764 1 Tablet(s) PO BID 02/20/2016 02/19/2016 Inactive furosemide 40 mg tablet RxNorm: 442197 TAKE ONE TABLET BY MOUTH DAILY 01/27/2016 01/26/2016 In active warfarin 5 mg tablet RxNorm: 063127 TAKE 1 AND 1/2 TABLETS BY MOUTH ON AND WEDNESDAY. TAKE ONLY 1 TABLET BY MOUTH ALL OTHER DAYS OF THE WEEK 01/27/2016 01/26/2016 In active furosemide 40 mg tablet RxNorm: 280619 TAKE ONE TABLET BY MOUTH DAILY 01/27/2016 06/04/2016 In active warfarin 5 mg tablet RxNorm: 678874 TAKE 1 AND 1/2 TABLETS BY MOUTH ON AND WEDNESDAY. TAKE ONLY 1 TABLET BY MOUTH ALL OTHER DAYS OF THE WEEK 01/27/2016 03/17/2016 In active potassium chloride E R 20 mEq tablet,extended release RxNorm: 217482 1 Tablet(s) PO daily 11/20/2015 03/02/2016 Inactive furosemide 40 mg tablet RxNorm: 421434 TAKE ONE TABLET BY MOUTH DAILY 11/12/2015 01/26/2016 In active Zovirax 5 % topical cream RxNorm: 695632 TOP QID 0 09/24/2015 09/23/2015 Inactive Zovirax 5 % topical cream RxNorm: 986480 TOP QID 0 09/24/2015 11/19/2015 Inactive nystatin 100,000 uni t/gram topical cream RxNorm: 334334 1 Application TOP TID 09/17/2015 10/12/2016 In active warfarin 5 mg tablet RxNorm: 209868 TAKE 1 AND 1/2 TABLETS BY MOUTH ON AND WEDNESDAY. TAKE ONLY 1 TABLET BY MOUTH ALL OTHER DAYS OF THE WEEK 08/19/2015 01/05/2016 In active loratadine 10 mg tablet RxNorm: 500285 1 Tablet(s) PO daily 07/30/2015 07/23/2016 Inactive loratadine 10 mg tablet RxNorm: 431749 1 Tablet(s) PO daily 07/30/2015 07/29/2015 Inactive furosemide 40 mg tablet RxNorm: 201458 TAKE ONE TABLET BY MOUTH DAILY 06/24/2015 11/11/2015 In active levothyroxine 125 mc g tablet RxNorm: 643960 1 Tablet(s) PO daily 05/31/2015 05/24/2016 Inactive furosemide 40 mg tablet RxNorm: 702070 1 Tablet(s) PO daily 04/05/2015 06/23/2015 Inactive warfarin 5 mg tablet RxNorm: 894802 TAKE 1 AND 1/2 TABLETS BY MOUTH ON AND WEDNESDAY. TAKE ONLY 1 TABLET BY MOUTH ALL OTHER DAYS OF THE WEEK 02/12/2015 07/29/2015 In active Flonase Allergy Reli ef 50 mcg/actuation nasal spray,suspension RxNorm: 2 [place] NASAL daily 02/05/2015 03/06/2015 Inactive Kenalog 40 mg/mL zohra pension for injection RxNorm: 6576719 Milliliter(s) Inj 02/05/2015 02/05/2015 In active warfarin 5 mg tablet RxNorm: 464727 Take 7.5mg (1 1/2 tablets) Wednesday and and 1 Tablet(s) PO (5mg) all other days 01/11/2015 02/09/2015 Inactive levothyroxine 125 mc g tablet RxNorm: 457061 1 Tablet(s) PO every other day 01/01/2015 05/30/2015 In active alternate with 150 levothyroxine 150 mc g tablet RxNorm: 466682 1 Tablet(s) PO every other day 01/01/2015 05/30/2015 In active alternate with 125 loratadine 10 mg tablet RxNorm: 056488 Tablet(s) PO as needed No Start Date Active Fish Oil 1,000 mg ca psule RxNorm: 1 Capsule(s) PO TID No Start Date Active magnesium 250 mg tablet RxNorm: 1 Tablet(s) PO daily No Start Date Active Vitamin D3 2,000 uni t tablet RxNorm: 826979 2 Tablet(s) PO daily No Start Date Active Fosamax 35 mg tablet RxNorm: 116052 1 Tablet(s) PO QW No Start Date Active levothyroxine 125 mc g tablet RxNorm: 713499 1 Tablet(s) PO daily No Start Date 12/31/2014 Inactive levothyroxine 150 mc g tablet RxNorm: 329689 1 Tablet(s) PO daily No Start Date 12/31/2014 Inactive diltiazem 60 mg tablet RxNorm: 368180 1 Tablet(s) PO QID No Start Date 03/23/2018 Inactive meclizine 25 mg tablet RxNorm: 282006 1 Tablet(s) PO TID as needed Dizziness No Start Date 07/18/2018 Inactive furosemide 40 mg tablet RxNorm: 165698 1 Tablet(s) PO daily No Start Date 04/04/2015 Inactive potassium chloride RxNorm: miscellaneous No Start Date 11/19/2015 Inactive Vitamin D2 oral RxNorm: 4018 oral No Start Date 05/31/2015 Inactive warfarin 5 mg tablet RxNorm: 298067 1 Tablet(s) PO daily No Start Date 01/10/2015 Inactive Coumadin 4 mg tablet RxNorm: 809381 1 Tablet(s) PO Wed/ No Start Date 07/28/2017 Inactive Medication Administered Medication Codes Instruc tions Start Date Status ceftriaxone 500 mg solution for injection RxNorm: 2267335 10/27/2018 No longer A ctive ceftriaxone 500 mg solution for injection RxNorm: 2075963 07/22/2016 No longer A ctive Kenalog 40 mg/mL suspension for injection RxNorm: 0299475 Milliliter 07/22/2016 No longer Active Kenalog 40 mg/mL suspension for injection RxNorm: 6023907 Milliliter 02/05/2015 No longer Active Immunizations Vaccine Codes Date Status Influenza CVX: 141 03/24 completed Pneumococcal (Adult) CVX: 33 03/24/2018 completed Influenza CVX: 141 03/16 completed Pneumococcal (Adult) CVX: 133 03/16/2017 completed Influenza CVX: 141 05/06 completed Influenza CVX: 141 04/28 completed Pneumococcal CVX: 33 06/1999 completed Assessments Condition Codes Effectiv e Dates Urinary tract infection, site not specified ICD-10: N39.0 ICD-9: 599.0 12/05/2018 senior living (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 ICD-10: Z79.01 ICD-9: [...] Tinea corporis ICD-10: B35.4 ICD-9: 110.5 10/13/2016 Dysuria ICD-10: R30.0 ICD-9: 788.1 08/26/2016 Other acute sinusitis ICD-10: J01.80 ICD-9: 461.8 [...] 244.9 11/20/2014 ACTINIC KERATOSIS ICD-9: 702.0 11/20/2014 senior living current us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 therapy ICD-9: V58.61 10/19/2014 Reason For Visit Reason For Visit Effective Dates Notes dysuria 12/05/2018 pain, limb 11/17/2018 urinary urgency [...] Code Item Item Code Result Date Pt Ons0686 PT 23.8 seconds 12/09/2018 Pt Zud8533 INR 2.2 12/09/2018 Pt Yhd3788 Low Intensity - 1.5-2.0 12/09/2018 Pt Alo8369 Mod intensity - 2.0-3.0 12/09/2018 Pt Hma3844 Hi intensity - 3.0-4.0 12/09/2018 Pt Juk1613 PT 22.3 seconds 11/23/2018 Pt Bwa7246 INR 2.0 11/23/2018 Pt Lzd3675 Low Intensity - 1.5-2.0 11/23/2018 Pt Ykv8884 Mod intensity - 2.0-3.0 11/23/2018 Pt Tsk6334 Hi intensity - 3.0-4.0 11/23/2018 Pt Uek8439 PT 18.0 seconds 11/14/2018 Pt Dqm5776 INR 1.5 11/14/2018 Pt Dzx3585 Low Intensity - 1.5-2.0 11/14/2018 Pt Mmn6732 Mod intensity - 2.0-3.0 11/14/2018 Pt Shl6884 Hi intensity - 3.0-4.0 11/14/2018 Pt Yta9005 PT 17.3 seconds 11/03/2018 Pt Doj9645 INR 1.5 11/03/2018 Pt Ptq7509 Low Intensity - 1.5-2.0 11/03/2018 Pt Tic1014 Mod intensity - 2.0-3.0 11/03/2018 Pt Ldy7818 Hi intensity - 3.0-4.0 11/03/2018 Urine Culture Ucult Comp lete >100,000 col/ml aerobic grow th sent to ref lab 10/28/2018 Pt Ujc8799 PT 24.4 seconds 10/24/2018 Pt Eoq3988 INR 2.2 10/24/2018 Pt Ajl9350 Low Intensity - 1.5-2.0 10/24/2018 Pt Wpx7151 Mod intensity - 2.0-3.0 10/24/2018 Pt Art9094 Hi intensity - 3.0-4.0 10/24/2018 Lipid Ord30 CHOL 143 mg/dL 10/24/2018 Lipid Ord30 HDL 52.0 mg/dl 10/24/2018 Lipid Ord30 TRIG 78 mg/dL 10/24/2018 Lipid Ord30 LDL 75 mg/dL 10/24/2018 Lipid Ord30 C/HDL 2.8 Ratio 10/24/2018 Comp Metabolic Gcx214 NA 142 mEq/L 10/24/2018 Comp Metabolic Krp755 K 4.6 mEq/L 10/24/2018 Comp Metabolic Cqt954 CL 107 mEq/L 10/24/2018 Comp Metabolic Scy245 CO2 27.0 mEq/L 10/24/2018 Comp Metabolic Gzp721 AN ION GAP 13 10/24/2018 Comp Metabolic Xpm495 GL UCOSE 82 mg/dL 10/24/2018 Comp Metabolic Lvd335 Cr eat 1.1 mg/dL 10/24/2018 Comp Metabolic Gmd177 eG FR 54 ml/min/1.73m2 10/24 Comp Metabolic Kdm176 BUN 23 mg/dL 10/24/2018 Comp Metabolic Cbr433 B/ C Ratio 21.9 Ratio 10/24/2018 Comp Metabolic Pxd127 CA LCIUM 9.0 mg/dL 10/24/2018 Comp Metabolic Kqk266 AL K PHOS 64 U/L 10/24/2018 Comp Metabolic Cry957 T(SGOT) 18 U/L 10/24/2018 Comp Metabolic Ngp454 AL T(SGPT) 14 U/L 10/24/2018 Comp Metabolic Tlc932 BI LI T 0.5 mg/dL 10/24/2018 Comp Metabolic Vgx766 AL BUMIN 3.0 g/dL 10/24/2018 Comp Metabolic Prn808 TP RO 5.2 g/dL 10/24/2018 Comp Metabolic Zed240 GL OB 2.2 g/dL 10/24/2018 Comp Metabolic Kuh655 A/ G Ratio 1.4 Ratio 10/24/2018 Comp Metabolic Wrb510 Os mo 286 mOsmo 10/24/2018 Pt Opr3739 PT 23.8 seconds 09/29/2018 Pt Djl1827 INR 2.2 09/29/2018 Pt Wjx6560 Low Intensity - 1.5-2.0 09/29/2018 Pt Wiy4206 Mod intensity - 2.0-3.0 09/29/2018 Pt Uqm8321 Hi intensity - 3.0-4.0 09/29/2018 Pt Cai5259 PT 19.6 seconds 09/19/2018 Pt Yum7576 INR 1.7 09/19/2018 Pt Vxa3976 Low Intensity - 1.5-2.0 09/19/2018 Pt Wwx5912 Mod intensity - 2.0-3.0 09/19/2018 Pt Agf0901 Hi intensity - 3.0-4.0 09/19/2018 Pt Zol8094 PT 16.8 seconds 09/12/2018 Pt Qkq3572 INR 1.4 09/12/2018 Pt Qqt9867 Low Intensity - 1.5-2.0 09/12/2018 Pt Gqs2602 Mod intensity - 2.0-3.0 09/12/2018 Pt Xxo7271 Hi intensity - 3.0-4.0 09/12/2018 Pt Ldf6066 PT 13.1 seconds 09/07/2018 Pt Juk8244 INR 1.0 09/07/2018 Pt Xpz1239 Low Intensity - 1.5-2.0 09/07/2018 Pt Qyn6719 Mod intensity - 2.0-3.0 09/07/2018 Pt Ecl3773 Hi intensity - 3.0-4.0 09/07/2018 Pt Jqj9165 PT 24.1 seconds 08/23/2018 Pt Hst5261 INR 2.2 08/23/2018 Pt Yya4526 Low Intensity - 1.5-2.0 08/23/2018 Pt Qzc0032 Mod intensity - 2.0-3.0 08/23/2018 Pt Yba7797 Hi intensity - 3.0-4.0 08/23/2018 Pt Yzq2571 PT 30.9 seconds 08/16/2018 Pt Goc6234 INR 3.0 08/16/2018 Pt Vwg1578 Low Intensity - 1.5-2.0 08/16/2018 Pt Epg8816 Mod intensity - 2.0-3.0 08/16/2018 Pt Xul6244 Hi intensity - 3.0-4.0 08/16/2018 Pt Aob8610 PT 29.5 seconds 08/01/2018 Pt Sjs1389 INR 2.8 08/01/2018 Pt Wqp1775 Low Intensity - 1.5-2.0 08/01/2018 Pt Knr2042 Mod intensity - 2.0-3.0 08/01/2018 Pt Jdx3193 Hi intensity - 3.0-4.0 08/01/2018 Pt Cuc5480 PT 24.2 seconds 07/25/2018 Pt Uet5911 INR 2.2 07/25/2018 Pt Nkq8669 Low Intensity - 1.5-2.0 07/25/2018 Pt Bfa4174 Mod intensity - 2.0-3.0 07/25/2018 Pt Wqc5569 Hi intensity - 3.0-4.0 07/25/2018 Pt Wap3851 PT 38.6 seconds 07/19/2018 Pt Rrt4232 INR 4.0 07/19/2018 Pt Qsb8482 Low Intensity - 1.5-2.0 07/19/2018 Pt Xan5277 Mod intensity - 2.0-3.0 07/19/2018 Pt Xjl6631 Hi intensity - 3.0-4.0 07/19/2018 Pt Gaf8071 PT 25.7 seconds 07/11/2018 Pt Tuj4822 INR 2.4 07/11/2018 Pt Iav1593 Low Intensity - 1.5-2.0 07/11/2018 Pt Omh5481 Mod intensity - 2.0-3.0 07/11/2018 Pt Bwt4960 Hi intensity - 3.0-4.0 07/11/2018 Pt Fpa4418 PT 18.5 seconds 07/08/2018 Pt Pkh6794 INR 1.6 07/08/2018 Pt Cnm9544 Low Intensity - 1.5-2.0 07/08/2018 Pt Hvo8231 Mod intensity - 2.0-3.0 07/08/2018 Pt Rbc3107 Hi intensity - 3.0-4.0 07/08/2018 Pt Xmw4885 PT 27.3 seconds 06/29/2018 Pt Ztc8519 INR 2.6 06/29/2018 Pt Jpf8941 Low Intensity - 1.5-2.0 06/29/2018 Pt Hmf2770 Mod intensity - 2.0-3.0 06/29/2018 Pt Sfj0584 Hi intensity - 3.0-4.0 06/29/2018 Pt Wle4611 PT 24.0 seconds 05/26/2018 Pt Kmg8769 INR 2.2 05/26/2018 Pt Flm4883 Low Intensity - 1.5-2.0 05/26/2018 Pt Mir4288 Mod intensity - 2.0-3.0 05/26/2018 Pt Hev7358 Hi intensity - 3.0-4.0 05/26/2018 Tsh Ord6 TSH (3rd IS) 2.09 uIU/mL 03/25/2018 Cbc With Differential Ord2 WBC 8.83 K/ul 03/25/2018 Cbc With Differential Ord2 RBC 4.76 M/ul 03/25/2018 Cbc With Differential Ord2 HGB 14.1 g/dl 03/25/2018 Cbc With Differential Ord2 Neut% 61.6 % 03/25/2018 Cbc With Differential Ord2 HCT 43.6 % 03/25/2018 Cbc With Differential Ord2 MCV 91.6 fl 03/25/2018 Cbc With Differential Ord2 Lymph% 24.8 % 03/25/2018 Cbc With Differential Ord2 [place]% 9.5 % 03/25/2018 Cbc With Differential Ord2 MCH 29.6 pg 03/25/2018 Cbc With Differential Ord2 MCHC 32.3 pg 03/25/2018 Cbc With Differential Ord2 Eos% 3.6 % 03/25/2018 Cbc With Differential Ord2 PLT 322 K/ul 03/25/2018 Cbc With Differential Ord2 Baso% 0.5 % 03/25/2018 Cbc With Differential Ord2 RDW 17.2 % 03/25/2018 Cbc With Differential Ord2 Neut ABS# 5.44 K/ul 03/25/2018 Cbc With Differential Ord2 Lymph ABS# 2.19 K/ul 03/25/2018 Cbc With Differential Ord2 [place] ABS# 0.8 K/ul 03/25/2018 Cbc With Differential Ord2 Eos ABS# 0.3 K/ul 03/25/2018 Cbc With Differential Ord2 Baso ABS# 0.0 K/ul 03/25/2018 Lipid Ord30 CHOL 156 mg/dL 03/25/2018 Lipid Ord30 HDL 52.0 mg/dl 03/25/2018 Lipid Ord30 TRIG 98 mg/dL 03/25/2018 Lipid Ord30 LDL 84 mg/dL 03/25/2018 Lipid Ord30 C/HDL 3.0 Ratio 03/25/2018 Free T4 Qar509 FREE T4 1.73 ng/dL 03/25/2018 Comp Metabolic Mqk201 NA 143 mEq/L 03/25/2018 Comp Metabolic Tqi579 K 4.6 mEq/L 03/25/2018 Comp Metabolic Pjr888 CL 108 mEq/L 03/25/2018 Comp Metabolic Egx082 CO2 26.0 mEq/L 03/25/2018 Comp Metabolic Bzi058 AN ION GAP 14 03/25/2018 Comp Metabolic Iuj732 GL UCOSE 87 mg/dL 03/25/2018 Comp Metabolic Afs033 Cr eat 1.2 mg/dL 03/25/2018 Comp Metabolic Sda787 eG FR 48 ml/min/1.73m2 03/25 Comp Metabolic Pmq028 BUN 18 mg/dL 03/25/2018 Comp Metabolic Uyz097 B/ C Ratio 15.5 Ratio 03/25/2018 Comp Metabolic Dio732 CA LCIUM 9.1 mg/dL 03/25/2018 Comp Metabolic Deg879 AL K PHOS 58 U/L 03/25/2018 Comp Metabolic Xrr930 T(SGOT) 21 U/L 03/25/2018 Comp Metabolic Mll809 AL T(SGPT) 13 U/L 03/25/2018 Comp Metabolic Vnc432 BI LI T 0.7 mg/dL 03/25/2018 Comp Metabolic Bmv207 AL BUMIN 3.2 g/dL 03/25/2018 Comp Metabolic Nok690 TP RO 5.5 g/dL 03/25/2018 Comp Metabolic Pus812 GL OB 2.3 g/dL 03/25/2018 Comp Metabolic Lpe949 A/ G Ratio 1.4 Ratio 03/25/2018 Comp Metabolic Hru887 Os mo 286 mOsmo 03/25/2018 Pt Ntm9942 PT 29.0 seconds 03/22/2018 Pt Yod6222 INR 2.7 03/22/2018 Pt Xvx6102 Low Intensity - 1.5-2.0 03/22/2018 Pt Otw2293 Mod intensity - 2.0-3.0 03/22/2018 Pt Dgc4045 Hi intensity - 3.0-4.0 03/22/2018 Pt Lps6069 PT 27.1 seconds 02/25/2018 Pt Ata5359 INR 2.5 02/25/2018 Pt Dzd9524 Low Intensity - 1.5-2.0 02/25/2018 Pt Zed9941 Mod intensity - 2.0-3.0 02/25/2018 Pt Sfz4103 Hi intensity - 3.0-4.0 02/25/2018 Pt Qjs4196 PT 26.1 seconds 01/26/2018 Pt Foe4958 INR 2.4 01/26/2018 Pt Bwc0962 Low Intensity - 1.5-2.0 01/26/2018 Pt Iyd1628 Mod intensity - 2.0-3.0 01/26/2018 Pt Cvk8053 Hi intensity - 3.0-4.0 01/26/2018 Pt Kmp1815 PT 22.8 seconds 12/24/2017 Pt Txy4008 INR 2.0 12/24/2017 Pt Uae1668 Low Intensity - 1.5-2.0 12/24/2017 Pt Pbx7750 Mod intensity - 2.0-3.0 12/24/2017 Pt Tdp6234 Hi intensity - 3.0-4.0 12/24/2017 Pt Wcf1366 PT 29.4 seconds 11/18/2017 Pt Yns5166 INR 2.8 11/18/2017 Pt Ghx7232 Low Intensity - 1.5-2.0 11/18/2017 Pt Gsp8948 Mod intensity - 2.0-3.0 11/18/2017 Pt Lbg7472 Hi intensity - 3.0-4.0 11/18/2017 Pt Cbo3490 PT 26.6 seconds 09/13/2017 Pt Gyy9757 INR 2.4 09/13/2017 Pt Qxu4564 Low Intensity - 1.5-2.0 09/13/2017 Pt Lih0674 Mod intensity - 2.0-3.0 09/13/2017 Pt Kmf5189 Hi intensity - 3.0-4.0 09/13/2017 Pt Iqo8447 PT 28.2 seconds 08/10/2017 Pt Cze8260 INR 2.6 08/10/2017 Pt Qen2380 Low Intensity - 1.5-2.0 08/10/2017 Pt Fvn9870 Mod intensity - 2.0-3.0 08/10/2017 Pt Lgl0739 Hi intensity - 3.0-4.0 08/10/2017 Pt Rku3198 PT 33.9 seconds 07/27/2017 Pt Jgr3937 INR 3.3 07/27/2017 Pt Raj0973 Low Intensity - 1.5-2.0 07/27/2017 Pt Mcs6901 Mod intensity - 2.0-3.0 07/27/2017 Pt Zxy8652 Hi intensity - 3.0-4.0 07/27/2017 Pt Cgc4359 PT 29.1 seconds 06/29/2017 Pt Ivu7348 INR 2.7 06/29/2017 Pt Szd3555 Low Intensity - 1.5-2.0 06/29/2017 Pt Ora5946 Mod intensity - 2.0-3.0 06/29/2017 Pt Jij8071 Hi intensity - 3.0-4.0 06/29/2017 Pt Cej4412 PT 30.3 seconds 06/11/2017 Pt Vip2488 INR 2.9 06/11/2017 Pt Fjy6397 Low Intensity - 1.5-2.0 06/11/2017 Pt Vkc8116 Mod intensity - 2.0-3.0 06/11/2017 Pt Hwi9475 Hi intensity - 3.0-4.0 06/11/2017 Pt Nem8135 PT 39.1 seconds 06/07/2017 Pt Ksv9273 INR 3.9 06/07/2017 Pt Wut9934 Low Intensity - 1.5-2.0 06/07/2017 Pt Uxn6899 Mod intensity - 2.0-3.0 06/07/2017 Pt Vxm0155 Hi intensity - 3.0-4.0 06/07/2017 Pt Ied0925 PT 34.2 seconds 05/26/2017 Pt Ove5796 INR 3.3 05/26/2017 Pt Aoe8435 Low Intensity - 1.5-2.0 05/26/2017 Pt Gsj3517 Mod intensity - 2.0-3.0 05/26/2017 Pt Dyt7561 Hi intensity - 3.0-4.0 05/26/2017 Comp Metabolic Itg745 NA 138 mEq/L 04/23/2017 Comp Metabolic Fgo180 K 4.2 mEq/L 04/23/2017 Comp Metabolic Ysc995 CL 101 mEq/L 04/23/2017 Comp Metabolic Ctz263 CO2 28.0 mEq/L 04/23/2017 Comp Metabolic Pfm592 AN ION GAP 13 04/23/2017 Comp Metabolic Cnf162 GL UCOSE 89 mg/dL 04/23/2017 Comp Metabolic Ohg439 Cr eat 1.1 mg/dL 04/23/2017 Comp Metabolic Cdr421 eG FR 51 ml/min/1.73m2 04/23 Comp Metabolic Lop750 BUN 26 mg/dL 04/23/2017 Comp Metabolic Sko213 B/ C Ratio 23.9 Ratio 04/23/2017 Comp Metabolic Qhv948 CA LCIUM 9.4 mg/dL 04/23/2017 Comp Metabolic Dmh186 AL K PHOS 95 U/L 04/23/2017 Comp Metabolic Byh914 T(SGOT) 18 U/L 04/23/2017 Comp Metabolic Mvi940 AL T(SGPT) 17 U/L 04/23/2017 Comp Metabolic Zpu009 BI LI T 0.7 mg/dL 04/23/2017 Comp Metabolic Iff270 AL BUMIN 3.2 g/dL 04/23/2017 Comp Metabolic Lji021 TP RO 5.6 g/dL 04/23/2017 Comp Metabolic Tta028 GL OB 2.4 g/dL 04/23/2017 Comp Metabolic Htz513 A/ G Ratio 1.3 Ratio 04/23/2017 Comp Metabolic Cyi237 Os mo 280 mOsmo 04/23/2017 Pt Qlz1195 PT 28.6 seconds 04/23/2017 Pt Ele7144 INR 2.7 04/23/2017 Pt Qax9560 Low Intensity - 1.5-2.0 04/23/2017 Pt Qpj3274 Mod intensity - 2.0-3.0 04/23/2017 Pt Bze5718 Hi intensity - 3.0-4.0 04/23/2017 Pt Kje9233 PT 24.4 seconds 03/16/2017 Pt Mqu7985 INR 2.2 03/16/2017 Pt Shz1909 Low Intensity - 1.5-2.0 03/16/2017 Pt Qlm0653 Mod intensity - 2.0-3.0 03/16/2017 Pt Wgd1059 Hi intensity - 3.0-4.0 03/16/2017 Pt Ebi7991 PT 28.2 seconds 02/24/2017 Pt Kvt2846 INR 2.6 02/24/2017 Pt Pdv9171 Low Intensity - 1.5-2.0 02/24/2017 Pt Rln9080 Mod intensity - 2.0-3.0 02/24/2017 Pt Bdd1538 Hi intensity - 3.0-4.0 02/24/2017 Pt Uoj3974 PT 26.8 seconds 02/08/2017 Pt Kju6165 INR 2.5 02/08/2017 Pt Ecf2495 Low Intensity - 1.5-2.0 02/08/2017 Pt Kjm9906 Mod intensity - 2.0-3.0 02/08/2017 Pt Qcr0890 Hi intensity - 3.0-4.0 02/08/2017 Lipid Ord30 CHOL 150 mg/dL 01/25/2017 Lipid Ord30 HDL 55.0 mg/dl 01/25/2017 Lipid Ord30 TRIG 66 mg/dL 01/25/2017 Lipid Ord30 LDL 82 mg/dL 01/25/2017 Lipid Ord30 C/HDL 2.7 Ratio 01/25/2017 Pt Evv5653 PT 29.9 seconds 01/25/2017 Pt Dfx0590 INR 2.8 01/25/2017 Pt Liq3690 Low Intensity - 1.5-2.0 01/25/2017 Pt Eob4116 Mod intensity - 2.0-3.0 01/25/2017 Pt Ksl2571 Hi intensity - 3.0-4.0 01/25/2017 Comp Metabolic Bzr935 NA 143 mEq/L 01/25/2017 Comp Metabolic Yyr477 K 3.9 mEq/L 01/25/2017 Comp Metabolic Lub447 CL 108 mEq/L 01/25/2017 Comp Metabolic Xdm576 CO2 23.0 mEq/L 01/25/2017 Comp Metabolic Xfy439 AN ION GAP 16 01/25/2017 Comp Metabolic Uat008 GL UCOSE 80 mg/dL 01/25/2017 Comp Metabolic Xil198 Cr eat 1.0 mg/dL 01/25/2017 Comp Metabolic Uvh467 eG FR 57 ml/min/1.73m2 01/25 Comp Metabolic Sfq165 BUN 25 mg/dL 01/25/2017 Comp Metabolic Aot500 B/ C Ratio 25.0 Ratio 01/25/2017 Comp Metabolic Bzd216 CA LCIUM 8.5 mg/dL 01/25/2017 Comp Metabolic Yea182 AL K PHOS 81 U/L 01/25/2017 Comp Metabolic Egi089 T(SGOT) 19 U/L 01/25/2017 Comp Metabolic Yhg033 AL T(SGPT) 23 U/L 01/25/2017 Comp Metabolic Ozu674 BI LI T 0.5 mg/dL 01/25/2017 Comp Metabolic Ypm886 AL BUMIN 2.9 g/dL 01/25/2017 Comp Metabolic Klc036 TP RO 5.1 g/dL 01/25/2017 Comp Metabolic Xet091 GL OB 2.2 g/dL 01/25/2017 Comp Metabolic Bxv633 A/ G Ratio 1.3 Ratio 01/25/2017 Comp Metabolic Uix717 Os mo 288 mOsmo 01/25/2017 Cbc With Differential Ord2 WBC 10.22 K/ul 01/25/2017 Cbc With Differential Ord2 RBC 4.89 M/ul 01/25/2017 Cbc With Differential Ord2 HGB 15.0 g/dl 01/25/2017 Cbc With Differential Ord2 HCT 45.2 % 01/25/2017 Cbc With Differential Ord2 Neut% 57.6 % 01/25/2017 Cbc With Differential Ord2 Lymph% 30.3 % 01/25/2017 Cbc With Differential Ord2 MCV 92.4 fl 01/25/2017 Cbc With Differential Ord2 MCH 30.7 pg 01/25/2017 Cbc With Differential Ord2 [place]% 8.2 % 01/25/2017 Cbc With Differential Ord2 [...] 3.10 K/ul 01/25/2017 Cbc With Differential Ord2 [place] ABS# 0.8 K/ul 01/25/2017 Cbc With Differential Ord2 Eos ABS# 0.4 K/ul 01/25/2017 Cbc With Differential Ord2 Baso ABS# 0.1 K/ul 01/25/2017 Free T4 Tan487 FREE T4 2.09 ng/dL 01/25/2017 Tsh Ord6 hTSH II 0.46 uIU/mL 01/25/2017 Pt Unx8953 PT 26.1 seconds 11/26/2016 Pt Pjo5520 INR 2.6 11/26/2016 Pt Flb0552 Low Intensity - 1.5-2.0 11/26/2016 Pt Asx8261 Mod intensity - 2.0-3.0 11/26/2016 Pt Gas9748 Hi intensity - 3.0-4.0 11/26/2016 Pt Exd0566 PT 26.2 seconds 10/29/2016 Pt Iyb6244 INR 2.6 10/29/2016 Pt Bgc2556 Low Intensity - 1.5-2.0 10/29/2016 Pt Ucn8901 Mod intensity - 2.0-3.0 10/29/2016 Pt Lsx4534 Hi intensity - 3.0-4.0 10/29/2016 Pt Hbp5472 PT 20.8 seconds 10/13/2016 Pt Fpw5417 INR 1.9 10/13/2016 Pt Gbb2047 Low Intensity - 1.5-2.0 10/13/2016 Pt Nob9831 Mod intensity - 2.0-3.0 10/13/2016 Pt Nbk7046 Hi intensity - 3.0-4.0 10/13/2016 Pt Sij9461 PT 26.5 seconds 10/01/2016 Pt Qos8279 INR 2.6 10/01/2016 Pt Imy0731 Low Intensity - 1.5-2.0 10/01/2016 Pt Ikj6568 Mod intensity - 2.0-3.0 10/01/2016 Pt Kyi1615 Hi intensity - 3.0-4.0 10/01/2016 Pt Sas0759 PT 24.6 seconds 09/14/2016 Pt Ufj6862 INR 2.4 09/14/2016 Pt Ufr5405 Low Intensity - 1.5-2.0 09/14/2016 Pt Iyo4597 Mod intensity - 2.0-3.0 09/14/2016 Pt Ktj0845 Hi intensity - 3.0-4.0 09/14/2016 Pt Uzb2662 PT 18.0 seconds 09/07/2016 Pt Mzf9553 INR 1.6 09/07/2016 Pt Myc9517 Low Intensity - 1.5-2.0 09/07/2016 Pt Jty8880 Mod intensity - 2.0-3.0 09/07/2016 Pt Ftz7564 Hi intensity - 3.0-4.0 09/07/2016 Pt Wzf6157 PT 23.7 seconds 08/12/2016 Pt Kii5616 INR 2.2 08/12/2016 Pt Onp5006 Low Intensity - 1.5-2.0 08/12/2016 Pt Bji5861 Mod intensity - 2.0-3.0 08/12/2016 Pt Bae9259 Hi intensity - 3.0-4.0 08/12/2016 Pt Qpn2293 PT 21.6 seconds 07/27/2016 Pt Mxg4868 INR 2.0 07/27/2016 Pt Zza8916 Low Intensity - 1.5-2.0 07/27/2016 Pt Ftt1352 Mod intensity - 2.0-3.0 07/27/2016 Pt Uet9339 Hi intensity - 3.0-4.0 07/27/2016 Pt Qwl3849 PT 26.0 seconds 06/15/2016 Pt Xbp6159 INR 2.5 06/15/2016 Pt Jyr8111 Low Intensity - 1.5-2.0 06/15/2016 Pt Lva4327 Mod intensity - 2.0-3.0 06/15/2016 Pt Yjy4275 Hi intensity - 3.0-4.0 06/15/2016 Pt Udf5401 PT 18.8 seconds 06/01/2016 Pt Pfl8296 INR 1.7 06/01/2016 Pt Jbd0542 Low Intensity - 1.5-2.0 06/01/2016 Pt Icw8370 Mod intensity - 2.0-3.0 06/01/2016 Pt Brc2558 Hi intensity - 3.0-4.0 06/01/2016 Pt Kca1674 PT 20.8 seconds 05/12/2016 Pt Cxg0991 INR 1.9 05/12/2016 Pt Eyf4311 Low Intensity - 1.5-2.0 05/12/2016 Pt Aph0593 Mod intensity - 2.0-3.0 05/12/2016 Pt Wjg8149 Hi intensity - 3.0-4.0 05/12/2016 Pt Lcf2324 PT 24.5 seconds 04/10/2016 Pt Cje2941 INR 2.4 04/10/2016 Pt Jci9132 Low Intensity - 1.5-2.0 04/10/2016 Pt Jgd1603 Mod intensity - 2.0-3.0 04/10/2016 Pt Vrk7020 Hi intensity - 3.0-4.0 04/10/2016 Pt Zpj2520 PT 26.4 seconds 03/10/2016 Pt Ixd4311 INR 2.6 03/10/2016 Pt Moq6991 Low Intensity - 1.5-2.0 03/10/2016 Pt Dmj3035 Mod intensity - 2.0-3.0 03/10/2016 Pt Zta6469 Hi intensity - 3.0-4.0 03/10/2016 Pt Mcz9829 PT 24.9 seconds 03/06/2016 Pt Gag1944 INR 2.4 03/06/2016 Pt Mka7909 Low Intensity - 1.5-2.0 03/06/2016 Pt Nue2945 Mod intensity - 2.0-3.0 03/06/2016 Pt Gsl0948 Hi intensity - 3.0-4.0 03/06/2016 Pt Ntx4195 PT 21.9 seconds 02/25/2016 Pt Etv7626 INR 2.0 02/25/2016 Pt Jog0510 Low Intensity - 1.5-2.0 02/25/2016 Pt Jzk7975 Mod intensity - 2.0-3.0 02/25/2016 Pt Qcd2418 Hi intensity - 3.0-4.0 02/25/2016 Pt Krc4327 PT 21.8 seconds 02/21/2016 Pt Lno2853 INR 2.0 02/21/2016 Pt Pnk5902 Low Intensity - 1.5-2.0 02/21/2016 Pt Aio6172 Mod intensity - 2.0-3.0 02/21/2016 Pt Saz2747 Hi intensity - 3.0-4.0 02/21/2016 Culture Urine [id number] URI NE CULTURE SEE NOTES 02/20/2016 Culture Urine [id number] Con tinued Results 02/20/2016 Urine Culture Ucult [...] 29.2 pg 02/14/2016 Cbc With Differential Ord2 [place]% 9.3 % 02/14/2016 Cbc With Differential Ord2 MCHC 31.8 pg 02/14/2016 Cbc With Differential Ord2 Eos% 4.8 % 02/14/2016 Cbc With Differential Ord2 Baso% 0.6 % 02/14/2016 Cbc With Differential Ord2 PLT 355 K/ul 02/14/2016 Cbc With Differential Ord2 RDW 16.2 % 02/14/2016 Cbc With Differential Ord2 Neut ABS# 4.94 K/ul 02/14/2016 Cbc With Differential Ord2 Lymph ABS# 2.55 K/ul 02/14/2016 Cbc With Differential Ord2 [place] ABS# 0.8 K/ul 02/14/2016 Cbc With Differential Ord2 Eos ABS# 0.4 K/ul 02/14/2016 Cbc With Differential Ord2 Baso ABS# 0.1 K/ul 02/14/2016 Tsh Ord6 hTSH II 0.80 uIU/mL 02/14/2016 Pt Nfy5661 PT 27.1 seconds 02/14/2016 Pt Alg0344 INR 2.7 02/14/2016 Pt Mem0107 Low Intensity - 1.5-2.0 02/14/2016 Pt Uub9633 Mod intensity - 2.0-3.0 02/14/2016 Pt Ffw5244 Hi intensity - 3.0-4.0 02/14/2016 Free T4 Ejv921 FREE T4 1.87 ng/dL 02/14/2016 Comp Metabolic Tnk493 NA 139 mEq/L 02/14/2016 Comp Metabolic Rby532 K 3.8 mEq/L 02/14/2016 Comp Metabolic Tuu559 CL 103 mEq/L 02/14/2016 Comp Metabolic Ocn712 CO2 27.0 mEq/L 02/14/2016 Comp Metabolic Ivh364 AN ION GAP 13 02/14/2016 Comp Metabolic Zma536 GL UCOSE 91 mg/dL 02/14/2016 Comp Metabolic Auz047 Cr eat 1.0 mg/dL 02/14/2016 Comp Metabolic Lod654 eG FR 58 ml/min/1.73m2 02/13 Comp Metabolic Gom477 BUN 16 mg/dL 02/14/2016 Comp Metabolic Pse060 B/ C Ratio 16.2 Ratio 02/14/2016 Comp Metabolic Ack628 CA LCIUM 9.0 mg/dL 02/14/2016 Comp Metabolic Faq156 AL K PHOS 88 U/L 02/14/2016 Comp Metabolic Ztf275 T(SGOT) 17 U/L 02/14/2016 Comp Metabolic Vrr721 AL T(SGPT) 12 U/L 02/14/2016 Comp Metabolic Zpn202 BI LI T 0.6 mg/dL 02/14/2016 Comp Metabolic Aij625 AL BUMIN 3.2 g/dL 02/14/2016 Comp Metabolic Lhi741 TP RO 5.8 g/dL 02/14/2016 Comp Metabolic Raj261 GL OB 2.6 g/dL 02/14/2016 Comp Metabolic Acv176 A/ G Ratio 1.3 Ratio 02/14/2016 Comp Metabolic Iwq127 Os mo 278 mOsmo 02/14/2016 Pt Axx3344 PT 34.6 seconds 02/06/2016 Pt Uay9738 INR 3.7 02/06/2016 Pt Jgj6897 Low Intensity - 1.5-2.0 02/06/2016 Pt Bjy9216 Mod intensity - 2.0-3.0 02/06/2016 Pt Rot7316 Hi intensity - 3.0-4.0 02/06/2016 Pt Dlx2976 PT 33.3 seconds 01/23/2016 Pt Boc0543 INR 3.5 01/23/2016 Pt Qhh4485 Low Intensity - 1.5-2.0 01/23/2016 Pt Mjh4648 Mod intensity - 2.0-3.0 01/23/2016 Pt Cwl8393 Hi intensity - 3.0-4.0 01/23/2016 Pt Pdk7168 PT 30.5 seconds 12/31/2015 Pt Wpd3848 INR 3.2 12/31/2015 Pt Cai6912 Low Intensity - 1.5-2.0 12/31/2015 Pt Sxx9957 Mod intensity - 2.0-3.0 12/31/2015 Pt Qur6538 Hi intensity - 3.0-4.0 12/31/2015 Pt Acc4355 PT 35.6 seconds 12/25/2015 Pt Jtr8257 INR 3.9 12/25/2015 Pt Mbz8980 Low Intensity - 1.5-2.0 12/25/2015 Pt Ixp3633 Mod intensity - 2.0-3.0 12/25/2015 Pt Zzi0385 Hi intensity - 3.0-4.0 12/25/2015 Pt Ykm1426 PT 30.8 seconds 11/21/2015 Pt Zzw7003 INR 3.2 11/21/2015 Pt Afi3104 Low Intensity - 1.5-2.0 11/21/2015 Pt Ruh7227 Mod intensity - 2.0-3.0 11/21/2015 Pt Pot8172 Hi intensity - 3.0-4.0 11/21/2015 Uric Acid [...] 30.0 pg 11/20/2015 Cbc With Differential Ord2 [place]% 8.1 % 11/20/2015 Cbc With Differential Ord2 [...] 2.51 K/ul 11/20/2015 Cbc With Differential Ord2 [place] ABS# 0.9 K/ul 11/20/2015 Cbc With Differential Ord2 Eos ABS# 0.3 K/ul 11/20/2015 Cbc With Differential Ord2 Baso ABS# 0.0 K/ul 11/20/2015 Comp Metabolic Azr597 NA 137 mEq/L 10/22/2015 Comp Metabolic Qif423 K 3.9 mEq/L 10/22/2015 Comp Metabolic Dio094 CL 100 mEq/L 10/22/2015 Comp Metabolic Jcu487 CO2 31.0 mEq/L 10/22/2015 Comp Metabolic Mfq672 AN ION GAP 10 10/22/2015 Comp Metabolic Pyn439 GL UCOSE 94 mg/dL 10/22/2015 Comp Metabolic Wmw253 Cr eat 1.0 mg/dL 10/22/2015 Comp Metabolic Hom984 eG FR 55 ml/min/1.73m2 10/21 Comp Metabolic Izp778 BUN 19 mg/dL 10/22/2015 Comp Metabolic Xuu266 B/ C Ratio 18.3 Ratio 10/22/2015 Comp Metabolic Nbu731 CA LCIUM 8.8 mg/dL 10/22/2015 Comp Metabolic Zsd815 AL K PHOS 83 U/L 10/22/2015 Comp Metabolic Vjr149 T(SGOT) 15 U/L 10/22/2015 Comp Metabolic Huy319 AL T(SGPT) 13 U/L 10/22/2015 Comp Metabolic Vzx178 BI LI T 0.9 mg/dL 10/22/2015 Comp Metabolic Jpa039 AL BUMIN 2.8 g/dL 10/22/2015 Comp Metabolic Nuc491 TP RO 5.4 g/dL 10/22/2015 Comp Metabolic Dim204 GL OB 2.6 g/dL 10/22/2015 Comp Metabolic Ine131 A/ G Ratio 1.1 Ratio 10/22/2015 Comp Metabolic Pgr111 Os mo 276 mOsmo 10/22/2015 Bili D Ord93 BILI D 0.1 mg/dL 10/22/2015 Bili D Ord93 BILI I 0.8 mg/dL 10/22/2015 Pt Jyg0247 PT 22.8 seconds 10/22/2015 Pt Kik9026 INR 2.1 10/22/2015 Pt Ast0535 Low Intensity - 1.5-2.0 10/22/2015 Pt Npl3632 Mod intensity - 2.0-3.0 10/22/2015 Pt Nxg3283 Hi intensity - 3.0-4.0 10/22/2015 Pt Zth6730 PT 28.0 seconds 09/16/2015 Pt Sej5928 INR 2.7 09/16/2015 Pt Iyc5558 Low Intensity - 1.5-2.0 09/16/2015 Pt Upa9376 Mod intensity - 2.0-3.0 09/16/2015 Pt Pqs1976 Hi intensity - 3.0-4.0 09/16/2015 Tsh Ord6 hTSH II 1.40 uIU/mL 09/16/2015 Free T4 Udh509 FREE T4 1.73 ng/dL 09/16/2015 Lipid Ord30 CHOL 169 mg/dL 09/16/2015 Lipid Ord30 HDL 66.0 mg/dl 09/16/2015 Lipid Ord30 TRIG 78 mg/dL 09/16/2015 Lipid Ord30 LDL 87 mg/dL 09/16/2015 Lipid Ord30 C/HDL 2.6 Ratio 09/16/2015 Pt Zku5741 PT 26.6 seconds 08/21/2015 Pt Nyb2263 INR 2.6 08/21/2015 Pt Aju1143 Low Intensity - 1.5-2.0 08/21/2015 Pt Xoq1214 Mod intensity - 2.0-3.0 08/21/2015 Pt Lqi9798 Hi intensity - 3.0-4.0 08/21/2015 Comp Metabolic Jsc883 NA 141 mEq/L 08/08/2015 Comp Metabolic Ekc762 K 3.3 mEq/L 08/08/2015 Comp Metabolic Rao687 CL 102 mEq/L 08/08/2015 Comp Metabolic Igd675 CO2 31.0 mEq/L 08/08/2015 Comp Metabolic Zif255 AN ION GAP 11 08/08/2015 Comp Metabolic Iag764 GL UCOSE 83 mg/dL 08/08/2015 Comp Metabolic Tjt891 Cr eat 1.0 mg/dL 08/08/2015 Comp Metabolic Ecf444 eG FR 55 ml/min/1.73m2 08/08 Comp Metabolic Azm348 BUN 19 mg/dL 08/08/2015 Comp Metabolic Nyz958 B/ C Ratio 18.3 Ratio 08/08/2015 Comp Metabolic Dkq916 CA LCIUM 8.9 mg/dL 08/08/2015 Comp Metabolic Iom287 AL K PHOS 84 U/L 08/08/2015 Comp Metabolic Wrt842 T(SGOT) 20 U/L 08/08/2015 Comp Metabolic Zry469 AL T(SGPT) 18 U/L 08/08/2015 Comp Metabolic Goo325 BI LI T 0.6 mg/dL 08/08/2015 Comp Metabolic Yce112 AL BUMIN 3.3 g/dL 08/08/2015 Comp Metabolic Qbl400 TP RO 5.9 g/dL 08/08/2015 Comp Metabolic Izs942 GL OB 2.6 g/dL 08/08/2015 Comp Metabolic Flk250 A/ G Ratio 1.3 Ratio 08/08/2015 Comp Metabolic Xwx499 Os mo 283 mOsmo 08/08/2015 Cbc With [...] 30.0 pg 08/08/2015 Cbc With Differential Ord2 [place]% 8.2 % 08/08/2015 Cbc With Differential Ord2 Eos% 3.8 % 08/08/2015 Cbc With Differential Ord2 MCHC 32.7 pg 08/08/2015 Cbc With Differential Ord2 Baso% 0.4 % 08/08/2015 Cbc With Differential Ord2 PLT 296 K/ul 08/08/2015 Cbc With Differential Ord2 RDW 16.0 % 08/08/2015 Cbc With Differential Ord2 Neut ABS# 6.44 K/ul 08/08/2015 Cbc With Differential Ord2 Lymph ABS# 2.90 K/ul 08/08/2015 Cbc With Differential Ord2 [place] ABS# 0.9 K/ul 08/08/2015 Cbc With Differential [...] Ord93 BILI I 0.5 mg/dL 08/08/2015 Pt Pab4488 PT 31.8 seconds 08/05/2015 Pt Ioy3149 INR 3.2 08/05/2015 Pt Pjx4432 Low Intensity - 1.5-2.0 08/05/2015 Pt Hni1938 Mod intensity - 2.0-3.0 08/05/2015 Pt Bct3103 Hi intensity - 3.0-4.0 08/05/2015 Pt Xda5937 PT 27.4 seconds 06/27/2015 Pt Fma7365 INR 2.6 06/27/2015 Pt Jsg6203 Low Intensity - 1.5-2.0 06/27/2015 Pt Abq7177 Mod intensity - 2.0-3.0 06/27/2015 Pt Fbc6648 Hi intensity - 3.0-4.0 06/27/2015 Tsh Ord6 [...] Ord2 RDW 15.1 % 05/31/2015 Free T4 Evv584 FREE T4 1.89 ng/dL 05/31/2015 Comp Metabolic Ejd487 NA 140 mEq/L 05/31/2015 Comp Metabolic Ghj327 K 3.3 mEq/L 05/31/2015 Comp Metabolic Far852 CL 99 mEq/L 05/31/2015 Comp Metabolic Inv507 CO2 30.0 mEq/L 05/31/2015 Comp Metabolic Sne898 AN ION GAP 14 05/31/2015 Comp Metabolic Hmn810 GL UCOSE 70 mg/dL 05/31/2015 Comp Metabolic Jic301 Cr eat 1.0 mg/dL 05/31/2015 Comp Metabolic Ztp553 eG FR 55 ml/min/1.73m2 05/31 Comp Metabolic Lui237 BUN 23 mg/dL 05/31/2015 Comp Metabolic Lba472 B/ C Ratio 22.1 Ratio 05/31/2015 Comp Metabolic Vhg417 CA LCIUM 8.9 mg/dL 05/31/2015 Comp Metabolic Oum129 AL K PHOS 86 U/L 05/31/2015 Comp Metabolic Kjo142 T(SGOT) 28 U/L 05/31/2015 Comp Metabolic Ypc366 AL T(SGPT) 30 U/L 05/31/2015 Comp Metabolic Tbe959 BI LI T 0.4 mg/dL 05/31/2015 Comp Metabolic Ugn632 AL BUMIN 3.3 g/dL 05/31/2015 Comp Metabolic Vaq483 TP RO 6.0 g/dL 05/31/2015 Comp Metabolic Hdt975 GL OB 2.7 g/dL 05/31/2015 Comp Metabolic Crh900 A/ G Ratio 1.2 Ratio 05/31/2015 Comp Metabolic Kov688 Os mo 282 mOsmo 05/31/2015 Pt Mwu1632 PT 23.3 seconds 04/15/2015 Pt Aku9966 INR 2.2 04/15/2015 Pt Aqp4529 Low Intensity - 1.5-2.0 04/15/2015 Pt Pnm8878 Mod intensity - 2.0-3.0 04/15/2015 Pt Mnq6551 Hi intensity - 3.0-4.0 04/15/2015 Pt Ytq9690 PT 19.5 seconds 04/04/2015 Pt Rlg0184 INR 1.7 04/04/2015 Pt Vpr0861 Low Intensity - 1.5-2.0 04/04/2015 Pt Tqd4874 Mod intensity - 2.0-3.0 04/04/2015 Pt Ejn7587 Hi intensity - 3.0-4.0 04/04/2015 Pt Bai2875 PT 39.8 seconds 04/01/2015 Pt Nyq2430 INR 4.3 04/01/2015 Pt Wuk1975 Low Intensity - 1.5-2.0 04/01/2015 Pt Glt6459 Mod intensity - 2.0-3.0 04/01/2015 Pt Hde4742 Hi intensity - 3.0-4.0 04/01/2015 Metabolic Ord15 [...] Metabolic Ord15 CALCIUM 8.7 mg/dL 02/28/2015 Pt Yos6058 PT 31.4 seconds 02/28/2015 Pt Ucj4832 INR 3.2 02/28/2015 Pt Bml7105 Low Intensity - 1.5-2.0 02/28/2015 Pt Efh9007 Mod intensity - 2.0-3.0 02/28/2015 Pt Wup4038 Hi intensity - 3.0-4.0 02/28/2015 Pt Fct1645 PT 23.2 seconds 01/18/2015 Pt Pfb1334 INR 2.1 01/18/2015 Pt Dwt3370 Low Intensity - 1.5-2.0 01/18/2015 Pt Rhk4854 Mod intensity - 2.0-3.0 01/18/2015 Pt Rfd4879 Hi intensity - 3.0-4.0 01/18/2015 Pt Dxu1605 PT 18.2 seconds 01/10/2015 Pt Ubk3870 INR 1.6 01/10/2015 Pt Cqo1329 Low Intensity - 1.5-2.0 01/10/2015 Pt Rul9403 Mod intensity - 2.0-3.0 01/10/2015 Pt Ped1321 Hi intensity - 3.0-4.0 01/10/2015 Review of Systems System Result Effective Dates Constitutional recent illness 12/05/2018 Constitutional No anorexia [...] clear 08/16/2018 None Full Exam - General 1995 Ears/Nose/Throat lips/teeth/gingiva Overall: benign lips 08/16/2018 None [...] Date URINALYSIS NONAUTO W /O SCOPE CPT-4: 79635 12/05/2018 ROCEPHIN, PER 250 MG CPT-4: J0696 10/27/2018 URINALYSIS NONAUTO W /O SCOPE CPT-4: 30865 10/27/2018 ADMIN INFLUENZA VIRU S VAC CPT-4: G0008 03/24/2018 ADMIN PNEUMOCOCCAL V ACCINE SNOMED CT: 66844214 CPT-4: G0009 03/24/2018 FLU VACC PRSV FREE I NC ANTIG Formatting Model/CDA Sections, Assigned to/Dorothea Tan CPT-4: 32727Abeekcb 03/24/2018 Pneumococcal Polysac charide Vaccine, 23-Valent, Ad CPT-4: 21707 03/24/2018 TRIAMCINOLONE ACET I [place] NOS CPT-4: J3301 06/15/2017 THER/PROPH/DIAG INJ SC/IM CPT-4: 92559 06/15/2017 ADMIN PNEUMOCOCCAL V ACCINE SNOMED CT: 47101180 CPT-4: G0009 03/16/2017 ADMIN INFLUENZA VIRU S VAC CPT-4: G0008 03/16/2017 FLU VAC NO PRSV 4 VA L 3 YRS+ CPT-4: 96906 03/16/2017 PNEUMOCOCCAL VACC [address]: 66266609 CPT-4: 24117 03/16/2017 URINALYSIS NONAUTO W /O SCOPE CPT-4: 06300 08/26/2016 THER/PROPH/DIAG INJ SC/IM CPT-4: 91609 07/22/2016 TRIAMCINOLONE ACET I [place] NOS CPT-4: J3301 07/22/2016 ROCEPHIN, PER 250 MG CPT-4: J0696 07/22/2016 TRIAMCINOLONE ACET I [place] NOS CPT-4: J3301 02/05/2015 Vital Signs Date Vital 12/05/2018 Blood Pressure 1: 132/70 Code: 8480-6 BMI: 32.4 Code: 01986-1 Heart Rate 1: 84 bpm Height: 5'7" SpO2: 91% Weight: 207 lbs 11/17/2018 Blood Pressure 1: 102/62 Code: 8480-6 BMI: 32.4 Code: 91091-2 Heart Rate 1: 83 bpm Height: 5'7" SpO2: 94% Weight: 207 lbs 10/27/2018 Blood Pressure 1: 120/74 Code: 8480-6 BMI: 32.4 Code: 21011-6 Heart Rate 1: 65 bpm Height: 5'7" SpO2: 97% Weight: 207 lbs 09/27/2018 Blood Pressure 1: 128/74 Code: 8480-6 BMI: 32.4 Code: 32990-9 Heart Rate 1: 92 bpm Height: 5'7" SpO2: 97% Weight: 207 lbs 08/16/2018 Blood Pressure 1: 104/66 Code: 8480-6 BMI: 32.3 Code: 49278-8 Heart Rate 1: 94 bpm Height: 5'7" SpO2: 96% Weight: 206 lbs 07/11/2018 Blood Pressure 1: 102/68 Code: 8480-6 BMI: 34.5 Code: 44087-7 Heart Rate 1: 101 bpm Height: 5'7" SpO2: 98% Weight: 220 lbs 03/24/2018 Blood Pressure 1: 130/72 Code: 8480-6 BMI: 33.4 Code: 14827-3 Heart Rate 1: 82 bpm Height: 5'7" SpO2: 93% Weight: 213 lbs 11/18/2017 Blood Pressure 1: 128/70 Code: 8480-6 BMI: 33.6 Code: 70480-6 Heart Rate 1: 98 bpm Height: 5'7" SpO2: 97% Weight: 214 lbs 8 oz 09/30/2017 Blood Pressure 1: 100/50 Code: 8480-6 BMI: 34.0 Code: 42445-9 Heart Rate 1: 66 bpm Height: 5'7" SpO2: 96% Weight: 217 lbs 08/17/2017 Blood Pressure 1: 104/60 Code: 8480-6 BMI: 33.7 Code: 27178-5 Heart Rate 1: 99 bpm Height: 5'7" SpO2: 97% Weight: 215 lbs 06/15/2017 Blood Pressure 1: 120/64 Code: 8480-6 BMI: 33.5 Code: 81328-1 Heart Rate 1: 91 bpm Height: 5'7" SpO2: 94% Weight: 214 lbs 04/01/2017 Blood Pressure 1: 110/68 Code: 8480-6 BMI: 154.4 Code: 51038-6 Heart Rate 1: 66 bpm Height: 2'7" SpO2: 95% Weight: 211 lbs 03/16/2017 Blood Pressure 1: 130/72 Code: 8480-6 BMI: 33.0 Code: 46029-2 Heart Rate 1: 95 bpm Height: 5'7" SpO2: 97% Weight: 211 lbs 02/09/2017 Blood Pressure 1: 120/70 Code: 8480-6 BMI: 32.9 Code: 86551-8 Heart Rate 1: 78 bpm Height: 5'7" SpO2: 96% Weight: 210 lbs 10/13/2016 Blood Pressure 1: 118/76 Code: 8480-6 BMI: 32.6 Code: 71372-4 Heart Rate 1: 97 bpm Height: 5'7" SpO2: 98% Weight: 208 lbs 07/31/2016 Blood Pressure 1: 110/64 Code: 8480-6 BMI: 32.1 Code: 63011-3 Heart Rate 1: 79 bpm Height: 5'7" SpO2: 94% Weight: 205 lbs 07/22/2016 Blood Pressure 1: 108/74 Code: 8480-6 BMI: 32.1 Code: 80910-8 Heart Rate 1: 71 bpm Height: 5'7" SpO2: 97% Temperature: 36.9 (C ) / 98.4 (F) Weight: 205 lbs 05/01/2016 Blood Pressure 1: 120/72 Code: 8480-6 BMI: 32.7 Code: 32409-7 Heart Rate 1: 75 bpm Height: 5'7" SpO2: 94% Weight: 209 lbs 04/06/2016 Blood Pressure 1: 106/62 Code: 8480-6 BMI: 32.7 Code: 31866-0 Heart Rate 1: 83 bpm Height: 5'7" SpO2: 97% Weight: 209 lbs 03/06/2016 Blood Pressure 1: 112/68 Code: 8480-6 BMI: 32.7 Code: 06784-0 Heart Rate 1: 90 bpm Height: 5'7" SpO2: 97% Weight: 209 lbs 03/03/2016 Blood Pressure 1: 120/62 Code: 8480-6 BMI: 32.7 Code: 92145-4 Heart Rate 1: 92 bpm Height: 5'7" SpO2: 98% Weight: 209 lbs 02/07/2016 Blood Pressure 1: 110/64 Code: 8480-6 BMI: 32.7 Code: 34380-8 Heart Rate 1: 87 bpm Height: 5'7" SpO2: 97% Weight: 209 lbs 12/13/2015 Blood Pressure 1: 110/64 Code: 8480-6 BMI: 33.5 Code: 01184-8 Heart Rate 1: 90 bpm Height: 5'7" SpO2: 97% Weight: 214 lbs 12/03/2015 Blood Pressure 1: 132/76 Code: 8480-6 BMI: 33.4 Code: 81141-1 Heart Rate 1: 82 bpm Height: 5'7" SpO2: 99% Weight: 213 lbs 11/20/2015 Blood Pressure 1: 108/68 Code: 8480-6 BMI: 32.4 Code: 43450-6 Heart Rate 1: 77 bpm Height: 5'7" SpO2: 97% Weight: 207 lbs 09/17/2015 Blood Pressure 1: 122/76 Code: 8480-6 BMI: 33.0 Code: 91104-7 Heart Rate 1: 91 bpm Height: 5'7" SpO2: 97% Weight: 211 lbs 05/31/2015 Blood Pressure 1: 128/82 Code: 8480-6 BMI: 33.4 Code: 24547-9 Heart Rate 1: 98 bpm Height: 5'7" SpO2: 99% Weight: 213 lbs 02/05/2015 Blood Pressure 1: 128/80 Code: 8480-6 BMI: 32.6 Code: 59712-8 Heart Rate 1: 86 bpm Height: 5'7" SpO2: 97% Weight: 208 lbs 11/20/2014 Blood Pressure 1: 128/90 Code: 8480-6 BMI: 30.9 Code: 92071-6 Heart Rate 1: 94 bpm Height: 5'7" Weight: 197 lbs Functional Status No Functional Status data History of Present Illness Symptom Name Status Resu lt Effective Date Notes Quality acute 12/05/2018 None Onset and Resolution [...] Findings Denies fever 05/31/2015 None hypothyroid 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 P ATIENT, LEVEL III Diagnosis: Urinary tract infection, site not specified[ICD10: N39.0] Brielle Pisano MD, [facility] CPT-4: 09738 12/05/2018 ([id number]) 86232 EST. P ATIENT, LEVEL III Diagnosis: Contusion of right lower leg, initial encounter[ICD10: S80.11XA] Diagnosis: manager terminal (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[ICD10: Z79.01] Brielle Pisano MD, [facility] CPT-4: 40665 11/17/2018 ([id number]) 67404 EST. P ATIENT, LEVEL III Diagnosis: Urinary tract infection, site not specified[ICD10: N39.0] Brielle Pisano MD, [facility] CPT-4: 26231 10/27/2018 ([id number]) 75945 EST. P ATIENT, LEVEL IV Diagnosis: Atrophy of thyroid (acquired)[ICD10: E03.4] Diagnosis: Essential (primary) hypertension[ICD10: I10] Diagnosis: Other allergic rhinitis[ICD10: J30.89] Diagnosis: Other skin changes[ICD10: R23.8] Diagnosis: Chronic atrial fibrillation[ICD10: I48.2] Diagnosis: manager terminal (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[ICD10: Z79.01] Valerie Pisano MD, [facility] CPT-4: 14487 09/27/2018 ([id number]) 40052 EST. P ATIENT, LEVEL IV Diagnosis: Essential (primary) hypertension[ICD10: I10] Diagnosis: Atrophy of thyroid (acquired)[ICD10: E03.4] Diagnosis: Sebaceous cyst[ICD10: L72.3] Diagnosis: Chronic atrial fibrillation[ICD10: I48.2] Diagnosis: manager terminal (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[ICD10: Z79.01] Valerie Pisano MD, [facility] CPT-4: 11503 08/16/2018 ([id number]) 81972 EST. P ATIENT, LEVEL IV Diagnosis: Atrophy of thyroid (acquired)[ICD10: E03.4] Diagnosis: Essential (primary) hypertension[ICD10: I10] Diagnosis: Other fatigue[ICD10: R53.83] Diagnosis: Localized edema[ICD10: R60.0] Valerie Pisano MD, [facility] CPT-4: 19872 07/11/2018 ([id number]) 46806 EST. P ATIENT, LEVEL IV Diagnosis: Essential (primary) hypertension[ICD10: I10] Diagnosis: Atrophy of thyroid (acquired)[ICD10: E03.4] Diagnosis: Chronic atrial fibrillation[ICD10: I48.2] Valerie Pisano MD, [facility] CPT-4: 96719 03/24/2018 ([id number]) 44735 EST. P ATIENT, LEVEL IV Diagnosis: Essential (primary) hypertension[ICD10: I10] Diagnosis: Atrophy of thyroid (acquired)[ICD10: E03.4] Diagnosis: Chronic atrial fibrillation[ICD10: I48.2] Valerie Pisano MD, [facility] CPT-4: 97487 11/18/2017 12951 EST. PATIENT, LEVEL IV Diagnosis: Localized edema[ICD10: R60.0] Roxie Pisano MD, [facility] CPT-4: 01643 09/30/2017 ([id number]) 54117 EST. P ATIENT, LEVEL III Diagnosis: Essential (primary) hypertension[ICD10: I10] Valerie Pisano MD, C CPT-4: 03979 08/17/2017 ([id number]) 38777 EST. P ATIENT, LEVEL IV Diagnosis: Essential (primary) hypertension[ICD10: I10] Diagnosis: Atrophy of thyroid (acquired)[ICD10: E03.4] Diagnosis: Chronic atrial fibrillation[ICD10: I48.2] Diagnosis: Cervicalgia[ICD10: M54.2] Diagnosis: Other muscle spasm[ICD10: M62.838] Valerie Pisano MD, [facility] CPT- 4: 11217 06/15/2017 71661 EST. PATIENT, LEVEL III Diagnosis: Laceration without foreign body of other finger without damage to nail, initial encounter[ICD10: S61.218A] Roxie Pisano MD, [facility] CPT-4: 67728 04/01/2017 ([id number]) 32386 EST. P ATIENT, LEVEL IV Diagnosis: Chronic atrial fibrillation[ICD10: I48.2] Diagnosis: manager terminal (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[ICD10: Z79.01] Diagnosis: Encounter for immunization[ICD10: Z23] Diagnosis: Atrophy of thyroid (acquired)[ICD10: E03.4] Valerie Pisano MD, [facility] CPT-4: 53878 03/16/2017 ([id number]) 18647 EST. P ATIENT, LEVEL IV Diagnosis: Chronic atrial fibrillation[ICD10: I48.2] Diagnosis: Essential (primary) hypertension[ICD10: I10] Diagnosis: Other fatigue[ICD10: R53.83] Diagnosis: manager terminal (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[ICD10: Z79.01] Diagnosis: Atrophy of thyroid (acquired)[ICD10: E03.4] Valerie Pisano MD, [facility] CPT-4: 32798 02/09/2017 ([id number]) 85699 EST. P ATIENT, LEVEL IV Diagnosis: Essential (primary) hypertension[ICD10: I10] Diagnosis: Chronic atrial fibrillation[ICD10: I48.2] Diagnosis: Tinea corporis[ICD10: B35.4] Diagnosis: manager terminal (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[ICD10: Z79.01] Diagnosis: Other skin changes[ICD10: R23.8] Valerie Pisano MD, [facility] CPT-4: 60333 10/13/2016 77038 EST. PATIENT, LEVEL III Diagnosis: Other acute sinusitis[ICD10: J01.80] Diagnosis: Other allergic rhinitis[ICD10: J30.89] Roxie Pisano MD, [facility] CPT-4: 22067 07/31/2016 ([id number]) 78385 EST. P ATIENT, LEVEL III Diagnosis: Acute recurrent maxillary sinusitis[ICD10: J01.01] Valerie Pisano MD, [facility] CPT-4: 68049 07/22/2016 75811 EST. PATIENT, LEVEL IV Diagnosis: Essential (primary) hypertension[ICD10: I10] Diagnosis: Other allergic rhinitis[ICD10: J30.89] Diagnosis: Localized edema[ICD10: R60.0] Roxie Pisano MD, [facility] CPT-4: 29047 05/01/2016 63664 EST. PATIENT, LEVEL III Diagnosis: Cellulitis of left lower limb[ICD10: L03.116] Diagnosis: Localized edema[ICD10: R60.0] Roxie Pisano MD, [facility] CPT-4: 73372 04/06/2016 ([id number]) Miscellaneou s no charge Diagnosis: Cellulitis of left lower limb[ICD10: L03.116] Diagnosis: Localized edema[ICD10: R60.0] Roxie Pisano MD, [facility] CPT-4: 30602 03/10/2016 ([id number]) Miscellaneou s no charge Diagnosis: Cellulitis of left lower limb[ICD10: L03.116] Roxie Pisano MD, [facility] CPT-4: 73973 03/06/2016 74990 EST. PATIENT, LEVEL IV Diagnosis: Cellulitis of left lower limb[ICD10: L03.116] Diagnosis: Localized edema[ICD10: R60.0] Roxie Pisano MD, [facility] CPT-4: 95449 03/03/2016 ([id number]) 43644 EST. [facility] Diagnosis: Essential (primary) hypertension[ICD10: I10] Diagnosis: senior living (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[ICD10: Z79.01] Diagnosis: Chronic atrial fibrillation[ICD10: I48.2] Brielle Pisano MD, [facility] CPT-4: 86726 02/07/2016 ([id number]) 52230 EST. P ATIENT, LEVEL III Diagnosis: Iliotibial band syndrome, right leg[ICD10: M76.31] Diagnosis: Localized edema[ICD10: R60.0] Brielle Pisano MD, [facility] CPT- 4: 52045 12/13/2015 ([id number]) 84753 EST. P ATIENT, LEVEL III Diagnosis: Localized edema[ICD10: R60.0] Diagnosis: Essential (primary) hypertension[ICD10: I10] Brielle Pisano MD, [facility] CPT-4: 47805 12/03/2015 ([id number]) 78046 EST. P ATIENT, LEVEL IV Diagnosis: manager terminal (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[ICD10: Z79.01] Diagnosis: Other skin changes[ICD10: R23.8] Diagnosis: Localized edema[ICD10: R60.0] Diagnosis: Pain in right foot[ICD10: M79.671] Valerie Pisano MD, [facility] CPT- 4: 23053 11/20/2015 60109 EST. PATIENT, LEVEL IV Diagnosis: Essential (primary) hypertension[ICD10: I10] Diagnosis: manager terminal (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[ICD10: Z79.01] Diagnosis: Muscle spasm of back[ICD10: M62.830] Roxie Pisano MD, [facility] CPT- 4: 90603 09/17/2015 ([id number]) 20465 EST. P ATIENT, LEVEL IV Diagnosis: Localized edema[ICD10: R60.0] Diagnosis: Other specified hypothyroidism[ICD10: E03.8] Diagnosis: Essential (primary) hypertension[ICD10: I10] Brielle Pisano MD, [facility] CPT-4: 50223 05/31/2015 ([id number]) 52027 EST. P ATIENT, LEVEL III Diagnosis: ALLERGIC RHINITIS[ICD9: 477.9] Diagnosis: ESSENTIAL HYPERTENSION[ICD9: 401.9] Brielle Pisano MD, [facility] CPT-4: 70452 02/05/2015 ([id number]) [facility] - LEVEL 4 Diagnosis: ESSENTIAL HYPERTENSION[ICD9: 401.9] Diagnosis: HYPOTHYROIDISM[ICD9: 244.9] Diagnosis: ACTINIC KERATOSIS[ICD9: 702.0] Valerie Pisano MD, [facility] CPT-4: 39565 11/20/2014 Plan of Care Planned Activity Notes C odes Status Date Visit Plan: UTI - pt with positive urinalysis - culture sent if appropriate. Antibiotic electronically prescribed to pt's pharmacy of choice. Pt to call if symptoms do not improve. 12/05/2018 Appointment: Brielle Cavazos WPtel: [facility]5 [phone] (30 min) Complex 12/05/2018 Patient Education: Patient Medication Summary Completed 12/05/2018 Care Plan: Urine Culture Pending 12/05/2018 Visit Plan: Contusion -right lower leg -continue to monitor symptoms -call if does not resolve or other symptoms develop. Patient verbalized understanding of plan. manager terminal use of anti coagulants -check PT/INR 11/17/2018 Appointment: Brielle Cavazos WPtel: [address] [place], [place] [phone] (30 min) Complex 11/17/2018 Patient Education: Patient Medication Summary Completed 11/17/2018 Visit Plan: UTI - pt with positive urinalysis - culture sent if appropriate. Antibiotic electronically prescribed to pt's pharmacy of choice. Pt to call if symptoms do not improve. 10/27/2018 Appointment: Brielle Cavazos WPtel: [facility]5 [phone] (10 min) Simple 10/27/2018 Patient Education: Patient [...] Dr. Hernandez. 09/27/2018 Appointment: Valerie Pisano WPtel: [facility]7 [facility] (15 min) Moderate 09/27/2018 Patient Education: Patient [...] daily. 08/16/2018 Appointment: Valerie Pisano WPtel: [phone] [facility] (15 min) Moderate 08/16/2018 Patient Education: Patient Medication Summary Completed 08/16/2018 Patient Education: Hypertension Completed 08/16/2018 Patient Education: Patient Medication Summary Completed 07/29/2018 Appointment: Brielle Cavazos WPtel: [phone] [phone] (15 min) Moderate 07/12/2018 Visit Plan: [...] daily. 07/11/2018 App[facility]ment: [phone] (15 min) Moderate 07/11/2018 Patient Education: Patient [...] today. 03/24/2018 Appointment: [phone] (15 min) Moderate 03/24/2018 Patient Education: Patient Medication Summary Completed 03/24/2018 Patient Education: Hypertension Completed 03/24/2018 Visit Plan: Hypertension - well con maicoed [...] of control. 11/18/2017 Appointment: Valerie Pisano WPtel: [phone] [facility] (15 min) Moderate 11/18/2017 Patient Education: Patient Medication Summary Completed 11/18/2017 Referral: [facility] WPtel: [address] [facility] [address] Pt notified at appointment Appointment Confirmed 10/01/2017 [...] Unna Boots 09/30/2017 Appointment: [phone] (30 min) Complex 09/30/2017 Patient Education: Patient Medication Summary Completed 09/30/2017 Care Plan: Referral Order SNOMED-CT : [id number] Pending 09/30/2017 Visit Plan: Hypertension - well [...] time. 08/17/2017 Appointment: [phone] (15 min) Moderate 08/17/2017 Patient [...] physical therapy - will refer to [facility] physical therapy. RX for voltaren to neck muscles. allergies - kenalog 40mg im bristol myAppCard squibb - lot # [id number] expires september 2018 06/15/2017 Visit Plan: Hypertension [...] physical therapy - will refer to [facility] physical therapy. RX for voltaren to neck muscles. 06/15/2017 Appointment: Valerie Pisano WPtel: [facility]5 [facility] (15 min) Moderate 06/15/2017 Patient Education: Patient Medication Summary Completed 06/15/2017 Care Plan: Referral Order SNOMED-CT : [id number] Pending 06/15/2017 Appointment: Nurse Visit 04/05/2017 Appointment: [...] tetanus booster. 04/01/2017 Appointment: Roxie Cazares WPtel: [facility]4 [facility] (15 min) Moderate 04/01/2017 Patient Education: [...] shot today 03/16/2017 Appointment: Valerie Pisano WPtel: [facility]4 [facility] (15 min) Moderate 03/16/2017 Patient Education: Patient [...] spray. 02/09/2017 Appointment: [phone] (15 min) Moderate 02/09/2017 Patient [...] for nystatin 10/13/2016 Appointment: Valerie Pisano WPtel: [phone] [facility] (15 min) Moderate 10/13/2016 Patient Education: Patient Medication Summary Completed 10/13/2016 Patient Education: Obesity Completed 10/13/2016 Patient Education: Hypertension Completed 10/13/2016 Care Plan: Urine Culture Pending 08/31/2016 Appointment: Roxie Cazares WPtel: [facility] Lab Draw 08/27/2016 Appointment: Nurse Visit [...] allergy spray. 07/31/2016 Appointment: Brielle Cavazos WPtel: [phone] [phone] [place] (30 min) Complex 07/31/2016 Patient Education: Patient Medication Summary Completed 07/31/2016 Patient Education: Obesity Completed 07/31/2016 Visit Plan: Sinusitis - Pt has acut e infection - pain in face, maxillary region, Pt informed to use decongestant, RX given to patient, sinus rinses also recommended. Call if symptoms do not show improvement. 07/22/2016 Appointment: Valerie Pisano WPtel: [phone] [facility] (15 min) Moderate 07/22/2016 Patient Education: Patient [...] peripheral edema. 05/01/2016 Appointment: Brielle Cavazos WPtel: [facility]9 [phone] (30 min) Complex 05/01/2016 Patient Education: [...] peripheral edema. 04/06/2016 Appointment: Roxie Cazares WPtel[facility] (30 min) Complex 04/06/2016 Patient Education: Patient Medication Summary Completed 04/06/2016 Patient Education: Obesity Completed 04/06/2016 Visit Plan: left foot - improved - pt finished with antibiotics - continue to monitor - notify clinic with any concerns. Repeat INR today. 03/10/2016 Appointment: Brielle Cavazos WPtel: [facility]5 [phone] (30 min) Complex 03/10/2016 Patient Education: Patient Medication Summary Completed 03/10/2016 Visit Plan: Cellulitis - continue w ith oral antibiotics as previously directed, return to clinic as previously directed, call for acute change in symptoms, worsening redness, warmth, discharge. 03/06/2016 Appointment: Brielle Cavazos WPtel: [facility]5 [phone] (15 min) Moderate 03/06/2016 Patient Education: Patient Medication Summary Completed 03/06/2016 Patient Education: Obesity Completed 03/06/2016 Visit Plan: Cellulitis - continue w ith oral antibiotics as previously directed, return to clinic as previously directed, call for acute change in symptoms, worsening redness, warmth, discharge. 03/03/2016 Appointment: Brielle Cavazos WPtel: [facility]5 [phone] (15 min) Moderate 03/03/2016 Patient Education: [...] and 3.5. 02/07/2016 Appointment: Brielle Cavazos WPtel: [facility]9 [phone] (30 min) Complex 02/07/2016 Patient Education: Patient Medication Summary Completed 02/07/2016 Patient Education: Obesity Completed 02/07/2016 Patient Education: Hypertension Completed 02/07/2016 Appointment: Brielle Cavazos WPtel: [facility]5 [phone] (30 min) Complex 02/04/2016 Visit Plan: Iliotibial [...] peripheral edema. 12/13/2015 Appointment: Brielle Cavazos WPtel: [facility]2 [facility] [place] [address] (15 min) Moderate 12/13/2015 Patient Education: Patient [...] at home. 12/03/2015 Appointment: Brielle Cavazos WPtel: [facility]7 [phone] (30 min) Complex 12/03/2015 Patient Education: [...] Hypertension Completed 02/05/2015 Appointment: Valerie Pisano WPtel: [facility] (15 min) Moderate 01/29/2015 Visit [...] control. 11/20/2014 Appointment: [facility]Ptel: [phone] [place] ([place]) New Patient 11/20/2014 Patient Education: Patient Medication Summary Completed 11/20/2014 Patient Education: Hypertension Completed 11/20/2014 Patient Education: Patient Medication Summary Completed 10/19/2014 Referral: [facility] W[facility]: Referral Appointment Requested Referral: [facility] Ref[facility] Appointment Confirmed Instructions Comment . Hypertension - wel l controlled - [...] go back to one pill twice daily. Monitor your blood p ressure at home [...] neck muscles. allergies - kenalog 40mg im Startist squibb - lot # [id number] expires september 2018 . Hypertension - wel [...] therapy. RX for voltaren to neck muscles. check coumadin level on wednesday Nasal spray- [...] Call if symptoms do not show improvement. ROCEPHIN INJECTION T SAMIR . UTI - [...] in the nasal steroid allergy spray. . Edema - pt has bee n advised to elevate legs to prevent dependent edema, compression has been recommended to help to naturally decrease peripheral edema. Diuretic use has been discussed and pt has been instructed in appropriate use of such medication as necessary to further attempt to reduce peripheral edema. Will refer to wound care for possible Unna Boots . Cellulitis - daylin nue with oral [...] spray. Kenalog injection today in the office. get blood work one w [place] before next appt - fasting labs Decrease [...] call if bruising does not improve. . Laceration of left index finger approximately 2 cm long and 1 mm deep - wound cleaned and debrided - ROSLYN and steri strips applied - pt is to return to clinic tomorrow for dressing change and wound check. Abx sent, pt is to check PT/INR on Wednesday. Pt given script for tetanus booster. . left foot - impro ed - [...] to call if symptoms do not improve. Increase Lasix to tw ice a day [...] to further attempt to reduce peripheral edema. Decrease to 2.5mg (1 /2 tab) on [...] for INR is between 2.0 and 3.5. claritin 10mg, or al legra 180mg, or [...] symptoms develop. Patient verbalized understanding of plan. manager terminal use of anti coagulants -check PT/INR . [...]
--- OUTSIDE RECORDS SUMMARY | 2019-09-12 10:54 | XMS REPORT | CCD ---
Author Author Clara Pisano Organization Valerie Pisano MD, [facility] Address [address] [place] [address] Phone Care Team Providers Care Steel Rod Buster Name Role Phone PP Unavailable CCM Unavailable Summary Purpose Interface Exchange Insurance Providers Payer name Policy type / Coverage type Covered constitution party ID Effective Begin Date Effective End Date WPS Medicare Part B Medicare Part B [id number] 2018 Unknown [employer] Medicare Part B [id number] 2018 Unknown Family history Sister Diagnosis Age At Onset defect Unknown Breast cancer Unknown Daughter Diagnosis Age At Onset Breast cancer Unknown Mother Diagnosis Age At Onset No Family Disease Entered N/A Social History Social History Element Codes Description Effective Dates Marital status Unknown M arried Lane 11/20/2014 Number of children Unknown 6 11/20/2014 Employment Unknown Retir ed 11/20/[address]: 2877453 Quit over 10 years ago 1963 11/20/2014 [...] ICD-9: 924.4 ICD-10: S80.11XA 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/2018 Unknown 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 ICD-9: V58.61 ICD-10: [...] Unknown HYPOTHYROIDISM ICD-9: 244.9 Active 11/19/2014 Unknown alf current us 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 therapy ICD-9: V58.61 Active 10/19/2014 Unknown Problems Condition Codes Effectiv e Dates Condition Status Urinary tract infect ion, site not specified ICD-9: 599.0 ICD-10: N39.0 02/13/2016 Active Contusion of right l ower leg, initial encounter ICD-9: 924.4 ICD-10: S80.11XA 11/17/2018 Active alf (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 ICD-9: V58.61 ICD-10: [...] 11/19/2014 Active HYPOTHYROIDISM ICD-9: 244.9 11/19/2014 Active 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 us 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 therapy ICD-9: V58.61 10/19/2014 Active Medications Medication Codes Instruc tions Start Date Stop Date Sta Fill Instructions Keflex 500 mg capsule RxNorm: 092401 1 Capsule(s) PO TID 12/05/2018 12/11/2018 Active Pyridium 200 mg tablet RxNorm: 4755479 1 Tablet(s) PO TID PRN 12/05/2018 No Stop Date Active Keflex 500 mg capsule RxNorm: 029355 1 Capsule(s) PO TID 11/17/2018 11/21/2018 Inactive doxycycline hyclate 100 mg capsule RxNorm: 5317519 1 Capsule(s) PO BID 10/31/2018 10/30/2018 In active doxycycline hyclate 100 mg capsule RxNorm: 3382337 1 Capsule(s) PO BID 10/31/2018 11/06/2018 In active Keflex 500 mg capsule RxNorm: 101880 1 Capsule(s) PO TID 10/27/2018 10/30/2018 Inactive ceftriaxone 500 mg s olution for injection RxNorm: 9061758 Inj 10/27/2018 10/27/2018 Inactive Coumadin 4 mg tablet RxNorm: 498911 1 Tablet(s) PO daily 08/16/2018 08/10/2019 Active this is an update to her RX - she will l et you know when she needs refill triamcinolone aceton sreekanth 0.025 % topical cream RxNorm: 0963068 1 Application TOP QI D 08/16/2018 No Stop Date Active levothyroxine 125 mc g tablet RxNorm: 356919 TAKE ONE TABLET BY MO [facility] DAILY ON WEDNESDAY, WED, AND WEDNESDAY, AND 1/2 TABLET ON ., , WED AND CYRIL. TAKE ON AN EMPTY STOMACH 08/04/2018 04/30/2019 Active meclizine 25 mg tablet RxNorm: 457017 1 Tablet(s) PO TID as needed Dizziness 07/22/2018 No Stop Date Active meclizine 25 mg tablet RxNorm: 356827 1 Tablet(s) PO TID as needed Dizziness 07/19/2018 07/21/2018 In active furosemide 40 mg tablet RxNorm: 944095 1 Tablet(s) BID take 1.5 tabs twice a da y x 7 days then 1 pill daily thereafter 07/11/2018 02/05/2019 Active Coumadin 4 mg tablet RxNorm: 912124 1 Tablet(s) PO daily except 1.5 pills on WEDNESDAY AND Wednesday07/11/2018 08/15/2018 Inactive this is an update to her RX - she will let you know when she needs refill warfarin 5 mg tablet RxNorm: 350989 Tablet(s) TAKE ONE TABLET BY MOUTH DAILY EXCEPT / TAKE 4 MG 04/06/2018 08/22/2019 Active diltiazem 60 mg tablet RxNorm: 569886 1/2 Tablet(s) PO QID 03/24/2018 No Stop Date Active levothyroxine 125 mc g tablet RxNorm: 346311 TAKE ONE TABLET BY [facility] DAILY ON WEDNESDAY, WED, AND WEDNESDAY, AND 1/2 TABLET ON , , WED AND WEDNESDAY. TAKE ON AN EMPTY STOMACH 02/02/2018 07/31/2018 Inactive Coumadin 4 mg tablet RxNorm: 746318 TAKE ONE TABLET BY MOUTH DAILY ON AND Wednesday10/14/2017 07/10/2018 Inactive nystatin 100,000 uni t/gram topical cream RxNorm: 693783 1 Application TOP TID 08/17/2017 No Stop Date Active Voltaren 1 % topical gel RxNorm: 133444 2 Gram(s) TOP TID luiz ly to shoulder and neck 08/17/2017 No Stop Date Active triamcinolone aceton sreekanth 0.025 % topical cream RxNorm: 6987152 1 Application TOP BI D 08/17/2017 08/15/2018 In active levothyroxine 125 mc g tablet RxNorm: 858955 1 Tablet(s) UD 1 pill wed/wed/wed, 1/2 pill //sat/sun take ON AN EMPTY STOMACH 08/05/2017 02/01/2018 Inactive Coumadin 4 mg tablet RxNorm: 066407 1 Tablet(s) PO Wed/07/29/2017 10/13/2017 Inactive warfarin 5 mg tablet RxNorm: 441770 TAKE 1 AND 1/2 TABLETS BY MOUTH ON AND WEDNESDAY. TAKE ONLY 1 TABLET BY MOUTH ALL OTHER DAYS OF THE WEEK 07/12/2017 04/05/2018 In active furosemide 40 mg tablet RxNorm: 028241 Tablet(s) BID TAKE ONE TABLET BY MOUTH D AILY 06/15/2017 07/10/2018 Inactive Voltaren 1 % topical gel RxNorm: 396926 2 Gram(s) TOP TID luiz ly to shoulder and neck 06/15/2017 08/16/2017 Inactive Keflex 500 mg capsule RxNorm: 021264 1 Capsule(s) PO TID 04/01/2017 04/07/2017 Inactive furosemide 40 mg tablet RxNorm: 212394 TAKE ONE TABLET BY MOUTH DAILY 03/18/2017 06/14/2017 In active Claritin-D 12 Hour 5 mg-120 mg tablet,extended release RxNorm: 6980852 1 Tablet(s) PO BID 03/16/2017 05/14/2017 Inactive Lipitor 20 mg tablet RxNorm: 626808 1 Tablet(s) PO daily 02/09/2017 03/10/2017 Inactive lisinopril 2.5 mg ta blet RxNorm: 003086 1 Tablet(s) PO daily 02/09/2017 03/10/2017 Inactive Nasonex 50 mcg/actua tion [place] RxNorm: 0024262 1 [place] NASAL BID 02/09/2017 09/06/2017 Inactive levothyroxine 125 mc g tablet RxNorm: 331484 1 Tablet(s) UD 1 pill wed/wed/wed, 1/2 pill //sat/sun take ON AN EMPTY STOMACH 02/09/2017 08/04/2017 Inactive fluorouracil 5 % top ical cream RxNorm: 360265 1 Application TOP BID 02/09/2017 02/18/2017 Inactive potassium chloride E R 20 mEq tablet,extended release RxNorm: 354983 Tablet(s) TAKE ONE TABLET BY MOUTH DAILY 02/08/2017 02/02/2018 Inactive warfarin 5 mg tablet RxNorm: 112296 TAKE 1 AND 1/2 TABLETS BY MOUTH ON AND WEDNESDAY. TAKE ONLY 1 TABLET BY MOUTH ALL OTHER DAYS OF THE WEEK 12/14/2016 05/30/2017 In active potassium chloride E R 20 mEq tablet,extended release RxNorm: 281023 TAKE ONE TABLET BY MOUTH DAILY 10/29/2016 01/26/2017 Inactive warfarin 5 mg tablet RxNorm: 415912 TAKE 1 AND 1/2 TABLETS BY MOUTH ON AND WEDNESDAY. TAKE ONLY 1 TABLET BY MOUTH ALL OTHER DAYS OF THE WEEK 10/27/2016 12/13/2016 In active nystatin 100,000 uni t/gram topical cream RxNorm: 276922 1 Application TOP TID 10/13/2016 08/16/2017 In active nitrofurantoin 50 mg capsule RxNorm: 770595 1 Capsule(s) PO BID 09/04/2016 09/03/2016 Inactive nitrofurantoin macro crystal 50 mg capsule RxNorm: 895181 1 Capsule(s) PO BID 09/04/2016 09/10/2016 In active Cipro 500 mg tablet RxNorm: 401713 1 Tablet(s) PO BID 08/26/2016 10/12/2016 Inactive Zyrtec 10 mg tablet RxNorm: 5774493 1 Tablet(s) PO daily 07/31/2016 08/29/2016 Inactive prednisone 20 mg tablet RxNorm: 588896 2 Tablet(s) PO daily 07/31/2016 08/02/2016 Inactive Kenalog 40 mg/mL zohra pension for injection RxNorm: 5601897 Milliliter(s) Inj 07/22/2016 07/22/2016 In active ceftriaxone 500 mg s olution for injection RxNorm: 8704449 Inj 07/22/2016 07/22/2016 Inactive Flonase Allergy Reli ef 50 mcg/actuation nasal spray,suspension RxNorm: 0798865 1 [place] NASAL BID 07/22/2016 08/20/2016 Inactive azithromycin 250 mg tablet RxNorm: 520773 2 Tablet(s) PO on day #1, then 1 pill daily x 4 days 07/22/2016 10/12/2016 Inactive warfarin 5 mg tablet RxNorm: 980287 TAKE 1 AND 1/2 TABLETS BY MOUTH ON AND WEDNESDAY. TAKE ONLY 1 TABLET BY MOUTH ALL OTHER DAYS OF THE WEEK 07/09/2016 09/30/2016 In active levothyroxine 125 mc g tablet RxNorm: 300496 Tablet(s) TAKE ONE TA BLET BY MOUTH DAILY ON AN EMPTY STOMACH 06/23/2016 02/08/2017 Inactive levothyroxine 125 mc g tablet RxNorm: 311398 TAKE ONE TABLET BY MO [facility] DAILY ON AN EMPTY STOMACH 06/23/2016 06/22/2016 Inactive levothyroxine 125 mc g tablet RxNorm: 653111 TAKE ONE TABLET BY MO UTH DAILY ON AN EMPTY STOMACH 06/23/2016 08/04/2017 Inactive cetirizine 10 mg tablet RxNorm: 3099697 TAKE ONE TABLET BY MOUTH DAILY 06/16/2016 10/13/2016 In active furosemide 40 mg tablet RxNorm: 622483 Tablet(s) TAKE ONE TABLET BY MOUTH DAILY 06/05/2016 12/01/2016 In active cetirizine 10 mg tablet RxNorm: 4639677 1 Tablet(s) PO daily 05/01/2016 05/30/2016 Inactive Levaquin 250 mg tablet RxNorm: 296227 Tablet(s) PO 2 pills day one and 1 pill day 2-7 04/06/2016 07/21/2016 Inactive warfarin 5 mg tablet RxNorm: 605228 Tablet(s) 1/2 TABLETS BY MOUTH ON AND WEDNESDAY. TAKE ONLY 1 TABLET BY MOUTH ALL OTHER DAYS OF THE WEEK 03/18/2016 07/07/2016 In active triamcinolone aceton sreekanth 0.025 % topical cream RxNorm: 3265702 1 Application TOP BI D 03/10/2016 08/16/2017 In active potassium chloride E R 20 mEq tablet,extended release RxNorm: 972464 1 Tablet(s) PO daily 03/04/2016 06/01/2016 Inactive Levaquin 250 mg tablet RxNorm: 425788 Tablet(s) PO 2 pills day one and 1 pill day 2-7 03/04/2016 04/05/2016 Inactive Levaquin 250 mg tablet RxNorm: 942831 Tablet(s) PO 2 pills day one and 1 pill day 2-7 03/03/2016 03/03/2016 Inactive potassium chloride E R 20 mEq tablet,extended release RxNorm: 304922 1 Tablet(s) PO daily 03/03/2016 03/03/2016 Inactive Cipro 500 mg tablet RxNorm: 180376 1 Tablet(s) PO BID 02/20/2016 07/21/2016 Inactive Cipro 500 mg tablet RxNorm: 475862 1 Tablet(s) PO BID 02/20/2016 02/19/2016 Inactive furosemide 40 mg tablet RxNorm: 758732 TAKE ONE TABLET BY MOUTH DAILY 01/27/2016 01/26/2016 In active warfarin 5 mg tablet RxNorm: 545307 TAKE 1 AND 1/2 TABLETS BY MOUTH ON AND WEDNESDAY. TAKE ONLY 1 TABLET BY MOUTH ALL OTHER DAYS OF THE WEEK 01/27/2016 01/26/2016 In active furosemide 40 mg tablet RxNorm: 780774 TAKE ONE TABLET BY MOUTH DAILY 01/27/2016 06/04/2016 In active warfarin 5 mg tablet RxNorm: 925585 TAKE 1 AND 1/2 TABLETS BY MOUTH ON AND WEDNESDAY. TAKE ONLY 1 TABLET BY MOUTH ALL OTHER DAYS OF THE WEEK 01/27/2016 03/17/2016 In active potassium chloride E R 20 mEq tablet,extended release RxNorm: 730311 1 Tablet(s) PO daily 11/20/2015 03/02/2016 Inactive furosemide 40 mg tablet RxNorm: 288758 TAKE ONE TABLET BY MOUTH DAILY 11/12/2015 01/26/2016 In active Zovirax 5 % topical cream RxNorm: 005601 TOP QID 0 09/24/2015 09/23/2015 Inactive Zovirax 5 % topical cream RxNorm: 184093 TOP QID 0 09/24/2015 11/19/2015 Inactive nystatin 100,000 uni t/gram topical cream RxNorm: 474871 1 Application TOP TID 09/17/2015 10/12/2016 In active warfarin 5 mg tablet RxNorm: 961718 TAKE 1 AND 1/2 TABLETS BY MOUTH ON AND WEDNESDAY. TAKE ONLY 1 TABLET BY MOUTH ALL OTHER DAYS OF THE WEEK 08/19/2015 01/05/2016 In active loratadine 10 mg tablet RxNorm: 557933 1 Tablet(s) PO daily 07/30/2015 07/23/2016 Inactive loratadine 10 mg tablet RxNorm: 641580 1 Tablet(s) PO daily 07/30/2015 07/29/2015 Inactive furosemide 40 mg tablet RxNorm: 042622 TAKE ONE TABLET BY MOUTH DAILY 06/24/2015 11/11/2015 In active levothyroxine 125 mc g tablet RxNorm: 154367 1 Tablet(s) PO daily 05/31/2015 05/24/2016 Inactive furosemide 40 mg tablet RxNorm: 235332 1 Tablet(s) PO daily 04/05/2015 06/23/2015 Inactive warfarin 5 mg tablet RxNorm: 569924 TAKE 1 AND 1/2 TABLETS BY MOUTH ON AND WEDNESDAY. TAKE ONLY 1 TABLET BY MOUTH ALL OTHER DAYS OF THE WEEK 02/12/2015 07/29/2015 In active Flonase Allergy Reli ef 50 mcg/actuation nasal spray,suspension RxNorm: 2 [place] NASAL daily 02/05/2015 03/06/2015 Inactive Kenalog 40 mg/mL zohra pension for injection RxNorm: 9754855 Milliliter(s) Inj 02/05/2015 02/05/2015 In active warfarin 5 mg tablet RxNorm: 049256 Take 7.5mg (1 1/2 tablets) Wednesday and and 1 Tablet(s) PO (5mg) all other days 01/11/2015 02/09/2015 Inactive levothyroxine 125 mc g tablet RxNorm: 931956 1 Tablet(s) PO every other day 01/01/2015 05/30/2015 In active alternate with 150 levothyroxine 150 mc g tablet RxNorm: 979963 1 Tablet(s) PO every other day 01/01/2015 05/30/2015 In active alternate with 125 loratadine 10 mg tablet RxNorm: 833968 Tablet(s) PO as needed No Start Date Active Fish Oil 1,000 mg ca psule RxNorm: 1 Capsule(s) PO TID No Start Date Active magnesium 250 mg tablet RxNorm: 1 Tablet(s) PO daily No Start Date Active Vitamin D3 2,000 uni t tablet RxNorm: 857222 2 Tablet(s) PO daily No Start Date Active Fosamax 35 mg tablet RxNorm: 380950 1 Tablet(s) PO QW No Start Date Active levothyroxine 125 mc g tablet RxNorm: 387678 1 Tablet(s) PO daily No Start Date 12/31/2014 Inactive levothyroxine 150 mc g tablet RxNorm: 060672 1 Tablet(s) PO daily No Start Date 12/31/2014 Inactive diltiazem 60 mg tablet RxNorm: 752808 1 Tablet(s) PO QID No Start Date 03/23/2018 Inactive meclizine 25 mg tablet RxNorm: 656777 1 Tablet(s) PO TID as needed Dizziness No Start Date 07/18/2018 Inactive furosemide 40 mg tablet RxNorm: 568776 1 Tablet(s) PO daily No Start Date 04/04/2015 Inactive potassium chloride RxNorm: miscellaneous No Start Date 11/19/2015 Inactive Vitamin D2 oral RxNorm: 4018 oral No Start Date 05/31/2015 Inactive warfarin 5 mg tablet RxNorm: 148012 1 Tablet(s) PO daily No Start Date 01/10/2015 Inactive Coumadin 4 mg tablet RxNorm: 269777 1 Tablet(s) PO Wed/ No Start Date 07/28/2017 Inactive Medication Administered Medication Codes Instruc tions Start Date Status ceftriaxone 500 mg solution for injection RxNorm: 2942193 10/27/2018 No longer A ctive ceftriaxone 500 mg solution for injection RxNorm: 0244419 07/22/2016 No longer A ctive Kenalog 40 mg/mL suspension for injection RxNorm: 9510082 Milliliter 07/22/2016 No longer Active Kenalog 40 mg/mL suspension for injection RxNorm: 9502982 Milliliter 02/05/2015 No longer Active Immunizations Vaccine [...] not specified ICD-10: N39.0 ICD-9: 599.0 12/05/2018 alf (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 ICD-10: Z79.01 ICD-9: [...] 244.9 11/20/2014 ACTINIC KERATOSIS ICD-9: 702.0 11/20/2014 alf current us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 therapy ICD-9: V58.61 [...] Code Item Item Code Result Date Pt Iis5133 PT 22.3 seconds 11/23/2018 Pt Zhl4583 INR 2.0 11/23/2018 Pt Flv8808 Low Intensity - 1.5-2.0 11/23/2018 Pt Cdh0459 Mod intensity - 2.0-3.0 11/23/2018 Pt Kzy7277 Hi intensity - 3.0-4.0 11/23/2018 Pt Diw1351 PT 18.0 seconds 11/14/2018 Pt Dhj0588 INR 1.5 11/14/2018 Pt Xzm7854 Low Intensity - 1.5-2.0 11/14/2018 Pt Ykg5922 Mod intensity - 2.0-3.0 11/14/2018 Pt Bsu4109 Hi intensity - 3.0-4.0 11/14/2018 Pt Exj6822 PT 17.3 seconds 11/03/2018 Pt Ycn8618 INR 1.5 11/03/2018 Pt Qoq7527 Low Intensity - 1.5-2.0 11/03/2018 Pt Ujr5248 Mod intensity - 2.0-3.0 11/03/2018 Pt Gpw7784 Hi intensity - 3.0-4.0 11/03/2018 Urine Culture Ucult Comp lete >100,000 col/ml aerobic grow th sent to ref lab 10/28/2018 Pt Ouo6239 PT 24.4 seconds 10/24/2018 Pt App5780 INR 2.2 10/24/2018 Pt Ofe4335 Low Intensity - 1.5-2.0 10/24/2018 Pt Nmr1084 Mod intensity - 2.0-3.0 10/24/2018 Pt Xzj8838 Hi intensity - 3.0-4.0 10/24/2018 Lipid Ord30 CHOL 143 mg/dL 10/24/2018 Lipid Ord30 HDL 52.0 mg/dl 10/24/2018 Lipid Ord30 TRIG 78 mg/dL 10/24/2018 Lipid Ord30 LDL 75 mg/dL 10/24/2018 Lipid Ord30 C/HDL 2.8 Ratio 10/24/2018 Comp Metabolic Uzt249 NA 142 mEq/L 10/24/2018 Comp Metabolic Yzl508 K 4.6 mEq/L 10/24/2018 Comp Metabolic Mli712 CL 107 mEq/L 10/24/2018 Comp Metabolic Vmf676 CO2 27.0 mEq/L 10/24/2018 Comp Metabolic Mfq492 AN ION GAP 13 10/24/2018 Comp Metabolic Sih223 GL UCOSE 82 mg/dL 10/24/2018 Comp Metabolic Awx445 Cr eat 1.1 mg/dL 10/24/2018 Comp Metabolic Kzw322 eG FR 54 ml/min/1.73m2 10/24 Comp Metabolic Vbh697 BUN 23 mg/dL 10/24/2018 Comp Metabolic Zsp232 B/ C Ratio 21.9 Ratio 10/24/2018 Comp Metabolic Ofe569 CA LCIUM 9.0 mg/dL 10/24/2018 Comp Metabolic Dax738 AL K PHOS 64 U/L 10/24/2018 Comp Metabolic Tcw503 T(SGOT) 18 U/L 10/24/2018 Comp Metabolic Cav424 AL T(SGPT) 14 U/L 10/24/2018 Comp Metabolic Bpx298 BI LI T 0.5 mg/dL 10/24/2018 Comp Metabolic Aik937 AL BUMIN 3.0 g/dL 10/24/2018 Comp Metabolic Lru720 TP RO 5.2 g/dL 10/24/2018 Comp Metabolic Hsr724 GL OB 2.2 g/dL 10/24/2018 Comp Metabolic Pmx183 A/ G Ratio 1.4 Ratio 10/24/2018 Comp Metabolic Cwj308 Os mo 286 mOsmo 10/24/2018 Pt Nid2589 PT 23.8 seconds 09/29/2018 Pt Kjd8797 INR 2.2 09/29/2018 Pt Ssc8498 Low Intensity - 1.5-2.0 09/29/2018 Pt Zgl4810 Mod intensity - 2.0-3.0 09/29/2018 Pt Yhp3800 Hi intensity - 3.0-4.0 09/29/2018 Pt Ubh5838 PT 19.6 seconds 09/19/2018 Pt Ztx6997 INR 1.7 09/19/2018 Pt Cwq7922 Low Intensity - 1.5-2.0 09/19/2018 Pt Ivs3592 Mod intensity - 2.0-3.0 09/19/2018 Pt Xmp0083 Hi intensity - 3.0-4.0 09/19/2018 Pt Ybd2579 PT 16.8 seconds 09/12/2018 Pt Scc1248 INR 1.4 09/12/2018 Pt Mqz5259 Low Intensity - 1.5-2.0 09/12/2018 Pt Gty8805 Mod intensity - 2.0-3.0 09/12/2018 Pt Dmt6158 Hi intensity - 3.0-4.0 09/12/2018 Pt Uaf0581 PT 13.1 seconds 09/07/2018 Pt Uxr6227 INR 1.0 09/07/2018 Pt Qkc7925 Low Intensity - 1.5-2.0 09/07/2018 Pt Bqp5567 Mod intensity - 2.0-3.0 09/07/2018 Pt Ofj4888 Hi intensity - 3.0-4.0 09/07/2018 Pt Khe6308 PT 24.1 seconds 08/23/2018 Pt Cpx4626 INR 2.2 08/23/2018 Pt Vpl8490 Low Intensity - 1.5-2.0 08/23/2018 Pt Nul4116 Mod intensity - 2.0-3.0 08/23/2018 Pt Ubc2130 Hi intensity - 3.0-4.0 08/23/2018 Pt Uex9659 PT 30.9 seconds 08/16/2018 Pt Fnj1940 INR 3.0 08/16/2018 Pt Ofh9116 Low Intensity - 1.5-2.0 08/16/2018 Pt Iux9688 Mod intensity - 2.0-3.0 08/16/2018 Pt Heh1377 Hi intensity - 3.0-4.0 08/16/2018 Pt Cvw0807 PT 29.5 seconds 08/01/2018 Pt Gms5348 INR 2.8 08/01/2018 Pt Xsz3610 Low Intensity - 1.5-2.0 08/01/2018 Pt Qlp1290 Mod intensity - 2.0-3.0 08/01/2018 Pt Opc5884 Hi intensity - 3.0-4.0 08/01/2018 Pt Tkn0738 PT 24.2 seconds 07/25/2018 Pt Gtp5088 INR 2.2 07/25/2018 Pt Ihb7172 Low Intensity - 1.5-2.0 07/25/2018 Pt Pmj3833 Mod intensity - 2.0-3.0 07/25/2018 Pt Cva5300 Hi intensity - 3.0-4.0 07/25/2018 Pt Hyk9859 PT 38.6 seconds 07/19/2018 Pt Kre1550 INR 4.0 07/19/2018 Pt Tqw5946 Low Intensity - 1.5-2.0 07/19/2018 Pt Gle6009 Mod intensity - 2.0-3.0 07/19/2018 Pt Lkk5521 Hi intensity - 3.0-4.0 07/19/2018 Pt Dcn6316 PT 25.7 seconds 07/11/2018 Pt Qgf8705 INR 2.4 07/11/2018 Pt Zge5947 Low Intensity - 1.5-2.0 07/11/2018 Pt Egl0561 Mod intensity - 2.0-3.0 07/11/2018 Pt Ovq5163 Hi intensity - 3.0-4.0 07/11/2018 Pt Mzm8830 PT 18.5 seconds 07/08/2018 Pt Kej7077 INR 1.6 07/08/2018 Pt Hhq9725 Low Intensity - 1.5-2.0 07/08/2018 Pt Gbf2460 Mod intensity - 2.0-3.0 07/08/2018 Pt Uhn4399 Hi intensity - 3.0-4.0 07/08/2018 Pt Kbm4010 PT 27.3 seconds 06/29/2018 Pt Ewz2736 INR 2.6 06/29/2018 Pt Ckp3295 Low Intensity - 1.5-2.0 06/29/2018 Pt Cyw3794 Mod intensity - 2.0-3.0 06/29/2018 Pt Cqq6753 Hi intensity - 3.0-4.0 06/29/2018 Pt Ppz9274 PT 24.0 seconds 05/26/2018 Pt Fgj7644 INR 2.2 05/26/2018 Pt Nhz5699 Low Intensity - 1.5-2.0 05/26/2018 Pt Rlx8803 Mod intensity - 2.0-3.0 05/26/2018 Pt Sgi2742 Hi intensity - 3.0-4.0 05/26/2018 Tsh Ord6 [...] 29.6 pg 03/25/2018 Cbc With Differential Ord2 [place]% 9.5 % 03/25/2018 Cbc With Differential Ord2 [...] 2.19 K/ul 03/25/2018 Cbc With Differential Ord2 [place] ABS# 0.8 K/ul 03/25/2018 Cbc With Differential Ord2 Eos ABS# 0.3 K/ul 03/25/2018 Cbc With Differential Ord2 Baso ABS# 0.0 K/ul 03/25/2018 Lipid Ord30 CHOL 156 mg/dL 03/25/2018 Lipid Ord30 HDL 52.0 mg/dl 03/25/2018 Lipid Ord30 TRIG 98 mg/dL 03/25/2018 Lipid Ord30 LDL 84 mg/dL 03/25/2018 Lipid Ord30 C/HDL 3.0 Ratio 03/25/2018 Free T4 Kjk408 FREE T4 1.73 ng/dL 03/25/2018 Comp Metabolic Atb897 NA 143 mEq/L 03/25/2018 Comp Metabolic Hen915 K 4.6 mEq/L 03/25/2018 Comp Metabolic Nkk101 CL 108 mEq/L 03/25/2018 Comp Metabolic Vyo866 CO2 26.0 mEq/L 03/25/2018 Comp Metabolic Rri522 AN ION GAP 14 03/25/2018 Comp Metabolic Zzq478 GL UCOSE 87 mg/dL 03/25/2018 Comp Metabolic Gmu791 Cr eat 1.2 mg/dL 03/25/2018 Comp Metabolic Hvb542 eG FR 48 ml/min/1.73m2 03/25 Comp Metabolic Afp294 BUN 18 mg/dL 03/25/2018 Comp Metabolic Wyx931 B/ C Ratio 15.5 Ratio 03/25/2018 Comp Metabolic Gja775 CA LCIUM 9.1 mg/dL 03/25/2018 Comp Metabolic Evx050 AL K PHOS 58 U/L 03/25/2018 Comp Metabolic Edw978 T(SGOT) 21 U/L 03/25/2018 Comp Metabolic Jug536 AL T(SGPT) 13 U/L 03/25/2018 Comp Metabolic Xud430 BI LI T 0.7 mg/dL 03/25/2018 Comp Metabolic Zde956 AL BUMIN 3.2 g/dL 03/25/2018 Comp Metabolic Qwc689 TP RO 5.5 g/dL 03/25/2018 Comp Metabolic Gdw563 GL OB 2.3 g/dL 03/25/2018 Comp Metabolic Nfi137 A/ G Ratio 1.4 Ratio 03/25/2018 Comp Metabolic Mpg044 Os mo 286 mOsmo 03/25/2018 Pt Vhx6584 PT 29.0 seconds 03/22/2018 Pt Upo1031 INR 2.7 03/22/2018 Pt Ndw1607 Low Intensity - 1.5-2.0 03/22/2018 Pt Qup0400 Mod intensity - 2.0-3.0 03/22/2018 Pt Lwn4699 Hi intensity - 3.0-4.0 03/22/2018 Pt Iwa7556 PT 27.1 seconds 02/25/2018 Pt Xmo6000 INR 2.5 02/25/2018 Pt Hnq9388 Low Intensity - 1.5-2.0 02/25/2018 Pt Psq3923 Mod intensity - 2.0-3.0 02/25/2018 Pt Zxg4021 Hi intensity - 3.0-4.0 02/25/2018 Pt Jbu3996 PT 26.1 seconds 01/26/2018 Pt Dai6542 INR 2.4 01/26/2018 Pt Cur0725 Low Intensity - 1.5-2.0 01/26/2018 Pt Sqx9571 Mod intensity - 2.0-3.0 01/26/2018 Pt Ubh9314 Hi intensity - 3.0-4.0 01/26/2018 Pt Hfj7006 PT 22.8 seconds 12/24/2017 Pt Plc2238 INR 2.0 12/24/2017 Pt Nrq0135 Low Intensity - 1.5-2.0 12/24/2017 Pt Rtn3566 Mod intensity - 2.0-3.0 12/24/2017 Pt Hye5235 Hi intensity - 3.0-4.0 12/24/2017 Pt Eer4437 PT 29.4 seconds 11/18/2017 Pt Fdq3964 INR 2.8 11/18/2017 Pt Tnb6364 Low Intensity - 1.5-2.0 11/18/2017 Pt Ypy1953 Mod intensity - 2.0-3.0 11/18/2017 Pt Qzj3924 Hi intensity - 3.0-4.0 11/18/2017 Pt Yvn0645 PT 26.6 seconds 09/13/2017 Pt Uyy7678 INR 2.4 09/13/2017 Pt Jkg8721 Low Intensity - 1.5-2.0 09/13/2017 Pt Nqt5984 Mod intensity - 2.0-3.0 09/13/2017 Pt Jbo4231 Hi intensity - 3.0-4.0 09/13/2017 Pt Voc7846 PT 28.2 seconds 08/10/2017 Pt Mof1749 INR 2.6 08/10/2017 Pt Auz3859 Low Intensity - 1.5-2.0 08/10/2017 Pt Xep4946 Mod intensity - 2.0-3.0 08/10/2017 Pt Nxa6593 Hi intensity - 3.0-4.0 08/10/2017 Pt Rjt3745 PT 33.9 seconds 07/27/2017 Pt Mda3288 INR 3.3 07/27/2017 Pt Fxd4494 Low Intensity - 1.5-2.0 07/27/2017 Pt Oby6293 Mod intensity - 2.0-3.0 07/27/2017 Pt Mdi7583 Hi intensity - 3.0-4.0 07/27/2017 Pt Szx9885 PT 29.1 seconds 06/29/2017 Pt Gof9256 INR 2.7 06/29/2017 Pt Fzy9522 Low Intensity - 1.5-2.0 06/29/2017 Pt Ohb1739 Mod intensity - 2.0-3.0 06/29/2017 Pt Vgj6020 Hi intensity - 3.0-4.0 06/29/2017 Pt Onk7547 PT 30.3 seconds 06/11/2017 Pt Xse9646 INR 2.9 06/11/2017 Pt Nti3809 Low Intensity - 1.5-2.0 06/11/2017 Pt Pmo4065 Mod intensity - 2.0-3.0 06/11/2017 Pt Ztt8095 Hi intensity - 3.0-4.0 06/11/2017 Pt Ozh4028 PT 39.1 seconds 06/07/2017 Pt Iik9887 INR 3.9 06/07/2017 Pt Wno3785 Low Intensity - 1.5-2.0 06/07/2017 Pt Fqq2964 Mod intensity - 2.0-3.0 06/07/2017 Pt Ceq9012 Hi intensity - 3.0-4.0 06/07/2017 Pt Puu0332 PT 34.2 seconds 05/26/2017 Pt Pnq3927 INR 3.3 05/26/2017 Pt Rko1345 Low Intensity - 1.5-2.0 05/26/2017 Pt Cyv6694 Mod intensity - 2.0-3.0 05/26/2017 Pt Tqx9814 Hi intensity - 3.0-4.0 05/26/2017 Comp Metabolic Vkd916 NA 138 mEq/L 04/23/2017 Comp Metabolic Sjh397 K 4.2 mEq/L 04/23/2017 Comp Metabolic Aqm358 CL 101 mEq/L 04/23/2017 Comp Metabolic Xax684 CO2 28.0 mEq/L 04/23/2017 Comp Metabolic Vbs892 AN ION GAP 13 04/23/2017 Comp Metabolic Grx658 GL UCOSE 89 mg/dL 04/23/2017 Comp Metabolic Bvp594 Cr eat 1.1 mg/dL 04/23/2017 Comp Metabolic Pyb224 eG FR 51 ml/min/1.73m2 04/23 Comp Metabolic Zbk994 BUN 26 mg/dL 04/23/2017 Comp Metabolic Lsu061 B/ C Ratio 23.9 Ratio 04/23/2017 Comp Metabolic Woa991 CA LCIUM 9.4 mg/dL 04/23/2017 Comp Metabolic Vao043 AL K PHOS 95 U/L 04/23/2017 Comp Metabolic Rev213 T(SGOT) 18 U/L 04/23/2017 Comp Metabolic Wqc280 AL T(SGPT) 17 U/L 04/23/2017 Comp Metabolic Jae508 BI LI T 0.7 mg/dL 04/23/2017 Comp Metabolic Src543 AL BUMIN 3.2 g/dL 04/23/2017 Comp Metabolic Lep740 TP RO 5.6 g/dL 04/23/2017 Comp Metabolic Zzn442 GL OB 2.4 g/dL 04/23/2017 Comp Metabolic Woe734 A/ G Ratio 1.3 Ratio 04/23/2017 Comp Metabolic Zmp917 Os mo 280 mOsmo 04/23/2017 Pt Whr0324 PT 28.6 seconds 04/23/2017 Pt Uve6105 INR 2.7 04/23/2017 Pt Rvm0911 Low Intensity - 1.5-2.0 04/23/2017 Pt Dbf5775 Mod intensity - 2.0-3.0 04/23/2017 Pt Fwh7440 Hi intensity - 3.0-4.0 04/23/2017 Pt Qst6757 PT 24.4 seconds 03/16/2017 Pt Tet7165 INR 2.2 03/16/2017 Pt Hbe9291 Low Intensity - 1.5-2.0 03/16/2017 Pt Erl1495 Mod intensity - 2.0-3.0 03/16/2017 Pt Dpj9233 Hi intensity - 3.0-4.0 03/16/2017 Pt Vaf2493 PT 28.2 seconds 02/24/2017 Pt Zoe3993 INR 2.6 02/24/2017 Pt Roj9729 Low Intensity - 1.5-2.0 02/24/2017 Pt Vge8790 Mod intensity - 2.0-3.0 02/24/2017 Pt Nww6044 Hi intensity - 3.0-4.0 02/24/2017 Pt Nvk3603 PT 26.8 seconds 02/08/2017 Pt Uhb3216 INR 2.5 02/08/2017 Pt Etz0979 Low Intensity - 1.5-2.0 02/08/2017 Pt Ibf6937 Mod intensity - 2.0-3.0 02/08/2017 Pt Zlh4309 Hi intensity - 3.0-4.0 02/08/2017 Lipid Ord30 CHOL 150 mg/dL 01/25/2017 Lipid Ord30 HDL 55.0 mg/dl 01/25/2017 Lipid Ord30 TRIG 66 mg/dL 01/25/2017 Lipid Ord30 LDL 82 mg/dL 01/25/2017 Lipid Ord30 C/HDL 2.7 Ratio 01/25/2017 Pt Oeb5273 PT 29.9 seconds 01/25/2017 Pt Qnf7564 INR 2.8 01/25/2017 Pt Hjd7357 Low Intensity - 1.5-2.0 01/25/2017 Pt Brb4177 Mod intensity - 2.0-3.0 01/25/2017 Pt Xsw8723 Hi intensity - 3.0-4.0 01/25/2017 Comp Metabolic Jlu708 NA 143 mEq/L 01/25/2017 Comp Metabolic Pzd412 K 3.9 mEq/L 01/25/2017 Comp Metabolic Qfb526 CL 108 mEq/L 01/25/2017 Comp Metabolic Lre816 CO2 23.0 mEq/L 01/25/2017 Comp Metabolic Xvk391 AN ION GAP 16 01/25/2017 Comp Metabolic Ptt508 GL UCOSE 80 mg/dL 01/25/2017 Comp Metabolic Gwl324 Cr eat 1.0 mg/dL 01/25/2017 Comp Metabolic Yek950 eG FR 57 ml/min/1.73m2 01/25 Comp Metabolic Lde800 BUN 25 mg/dL 01/25/2017 Comp Metabolic Qaj069 B/ C Ratio 25.0 Ratio 01/25/2017 Comp Metabolic Syo666 CA LCIUM 8.5 mg/dL 01/25/2017 Comp Metabolic Woc314 AL K PHOS 81 U/L 01/25/2017 Comp Metabolic Kyl466 T(SGOT) 19 U/L 01/25/2017 Comp Metabolic Ijp757 AL T(SGPT) 23 U/L 01/25/2017 Comp Metabolic Ccu668 BI LI T 0.5 mg/dL 01/25/2017 Comp Metabolic Cmz358 AL BUMIN 2.9 g/dL 01/25/2017 Comp Metabolic Kbj821 TP RO 5.1 g/dL 01/25/2017 Comp Metabolic Vyf110 GL OB 2.2 g/dL 01/25/2017 Comp Metabolic Old796 A/ G Ratio 1.3 Ratio 01/25/2017 Comp Metabolic Bcz456 Os mo 288 mOsmo 01/25/2017 Cbc With [...] 30.7 pg 01/25/2017 Cbc With Differential Ord2 B[place]% 8.2 % 01/25/2017 Cbc With Differential Ord2 [...] 3.10 K/ul 01/25/2017 Cbc With Differential Ord2 [place] ABS# 0.8 K/ul 01/25/2017 Cbc With Differential Ord2 Eos ABS# 0.4 K/ul 01/25/2017 Cbc With Differential Ord2 Baso ABS# 0.1 K/ul 01/25/2017 Free T4 Ktv928 FREE T4 2.09 ng/dL 01/25/2017 Tsh Ord6 hTSH II 0.46 uIU/mL 01/25/2017 Pt Nya4476 PT 26.1 seconds 11/26/2016 Pt Jhp6464 INR 2.6 11/26/2016 Pt Pmd5176 Low Intensity - 1.5-2.0 11/26/2016 Pt Hmc3358 Mod intensity - 2.0-3.0 11/26/2016 Pt Bgo6987 Hi intensity - 3.0-4.0 11/26/2016 Pt Iel3811 PT 26.2 seconds 10/29/2016 Pt Fmy9276 INR 2.6 10/29/2016 Pt Vfv9865 Low Intensity - 1.5-2.0 10/29/2016 Pt Psj6070 Mod intensity - 2.0-3.0 10/29/2016 Pt Uwb3204 Hi intensity - 3.0-4.0 10/29/2016 Pt Epp2857 PT 20.8 seconds 10/13/2016 Pt Vrx3969 INR 1.9 10/13/2016 Pt Qpd0847 Low Intensity - 1.5-2.0 10/13/2016 Pt Jjw9963 Mod intensity - 2.0-3.0 10/13/2016 Pt Gwu0381 Hi intensity - 3.0-4.0 10/13/2016 Pt Ctr7680 PT 26.5 seconds 10/01/2016 Pt Gjy0528 INR 2.6 10/01/2016 Pt Qsr9148 Low Intensity - 1.5-2.0 10/01/2016 Pt Jdr2979 Mod intensity - 2.0-3.0 10/01/2016 Pt Twl1757 Hi intensity - 3.0-4.0 10/01/2016 Pt Fzs5415 PT 24.6 seconds 09/14/2016 Pt Vxy2850 INR 2.4 09/14/2016 Pt Nwp8460 Low Intensity - 1.5-2.0 09/14/2016 Pt Glg3878 Mod intensity - 2.0-3.0 09/14/2016 Pt Kco9866 Hi intensity - 3.0-4.0 09/14/2016 Pt Gvh5787 PT 18.0 seconds 09/07/2016 Pt Dbf4778 INR 1.6 09/07/2016 Pt Uql5408 Low Intensity - 1.5-2.0 09/07/2016 Pt Snz6323 Mod intensity - 2.0-3.0 09/07/2016 Pt Tzl9759 Hi intensity - 3.0-4.0 09/07/2016 Pt Idn7867 PT 23.7 seconds 08/12/2016 Pt Knv7044 INR 2.2 08/12/2016 Pt Vxv9486 Low Intensity - 1.5-2.0 08/12/2016 Pt Bfi6572 Mod intensity - 2.0-3.0 08/12/2016 Pt Lsr7786 Hi intensity - 3.0-4.0 08/12/2016 Pt Mwn8050 PT 21.6 seconds 07/27/2016 Pt Lyl0099 INR 2.0 07/27/2016 Pt Cdk3199 Low Intensity - 1.5-2.0 07/27/2016 Pt Qup4443 Mod intensity - 2.0-3.0 07/27/2016 Pt Zgy3973 Hi intensity - 3.0-4.0 07/27/2016 Pt Kpj4276 PT 26.0 seconds 06/15/2016 Pt Kdn4021 INR 2.5 06/15/2016 Pt Ifn2800 Low Intensity - 1.5-2.0 06/15/2016 Pt Akw7647 Mod intensity - 2.0-3.0 06/15/2016 Pt Kih5715 Hi intensity - 3.0-4.0 06/15/2016 Pt Szf3761 PT 18.8 seconds 06/01/2016 Pt Qbm1272 INR 1.7 06/01/2016 Pt Abf6886 Low Intensity - 1.5-2.0 06/01/2016 Pt Hym4668 Mod intensity - 2.0-3.0 06/01/2016 Pt Whq6975 Hi intensity - 3.0-4.0 06/01/2016 Pt Bit5346 PT 20.8 seconds 05/12/2016 Pt Eio7691 INR 1.9 05/12/2016 Pt Lcp5988 Low Intensity - 1.5-2.0 05/12/2016 Pt Mso7895 Mod intensity - 2.0-3.0 05/12/2016 Pt Ucv1571 Hi intensity - 3.0-4.0 05/12/2016 Pt Qla4449 PT 24.5 seconds 04/10/2016 Pt Uvm2322 INR 2.4 04/10/2016 Pt Ozt0164 Low Intensity - 1.5-2.0 04/10/2016 Pt Cpg5332 Mod intensity - 2.0-3.0 04/10/2016 Pt Zoy7437 Hi intensity - 3.0-4.0 04/10/2016 Pt Ywt9451 PT 26.4 seconds 03/10/2016 Pt Sst9707 INR 2.6 03/10/2016 Pt Iwq6715 Low Intensity - 1.5-2.0 03/10/2016 Pt Nlo9180 Mod intensity - 2.0-3.0 03/10/2016 Pt Lbf3307 Hi intensity - 3.0-4.0 03/10/2016 Pt Hwa8343 PT 24.9 seconds 03/06/2016 Pt Boh3219 INR 2.4 03/06/2016 Pt Ynq7318 Low Intensity - 1.5-2.0 03/06/2016 Pt Rcq1911 Mod intensity - 2.0-3.0 03/06/2016 Pt Kyf7534 Hi intensity - 3.0-4.0 03/06/2016 Pt Nyq0930 PT 21.9 seconds 02/25/2016 Pt Cqc7122 INR 2.0 02/25/2016 Pt Tnd6456 Low Intensity - 1.5-2.0 02/25/2016 Pt Nuj5485 Mod intensity - 2.0-3.0 02/25/2016 Pt Wkb1633 Hi intensity - 3.0-4.0 02/25/2016 Pt Xlw3855 PT 21.8 seconds 02/21/2016 Pt Kuv1870 INR 2.0 02/21/2016 Pt Ntk2472 Low Intensity - 1.5-2.0 02/21/2016 Pt Etr0943 Mod intensity - 2.0-3.0 02/21/2016 Pt Psm9479 Hi intensity - 3.0-4.0 02/21/2016 Culture Urine [id number] URI NE CULTURE SEE NOTES 02/20/2016 Culture Urine [id number] Con tinued Results 02/20/2016 Urine Culture Ucult [...] 29.2 pg 02/14/2016 Cbc With Differential Ord2 Baca% 9.3 % 02/14/2016 Cbc With Differential Ord2 [...] 2.55 K/ul 02/14/2016 Cbc With Differential Ord2 [place] ABS# 0.8 K/ul 02/14/2016 Cbc With Differential Ord2 Eos ABS# 0.4 K/ul 02/14/2016 Cbc With Differential Ord2 Baso ABS# 0.1 K/ul 02/14/2016 Tsh Ord6 hTSH II 0.80 uIU/mL 02/14/2016 Pt Pxb1228 PT 27.1 seconds 02/14/2016 Pt Ivz8173 INR 2.7 02/14/2016 Pt Vum9534 Low Intensity - 1.5-2.0 02/14/2016 Pt Kfo1028 Mod intensity - 2.0-3.0 02/14/2016 Pt Xok9682 Hi intensity - 3.0-4.0 02/14/2016 Free T4 Ynn513 FREE T4 1.87 ng/dL 02/14/2016 Comp Metabolic Elx876 NA 139 mEq/L 02/14/2016 Comp Metabolic Zmy859 K 3.8 mEq/L 02/14/2016 Comp Metabolic Xvv735 CL 103 mEq/L 02/14/2016 Comp Metabolic Eek067 CO2 27.0 mEq/L 02/14/2016 Comp Metabolic Pmv879 AN ION GAP 13 02/14/2016 Comp Metabolic Tsr013 GL UCOSE 91 mg/dL 02/14/2016 Comp Metabolic Yvh286 Cr eat 1.0 mg/dL 02/14/2016 Comp Metabolic Wbj093 eG FR 58 ml/min/1.73m2 02/13 Comp Metabolic Wwj527 BUN 16 mg/dL 02/14/2016 Comp Metabolic Dcr760 B/ C Ratio 16.2 Ratio 02/14/2016 Comp Metabolic Oty552 CA LCIUM 9.0 mg/dL 02/14/2016 Comp Metabolic Wtf712 AL K PHOS 88 U/L 02/14/2016 Comp Metabolic Nhj825 T(SGOT) 17 U/L 02/14/2016 Comp Metabolic Qpe476 AL T(SGPT) 12 U/L 02/14/2016 Comp Metabolic Xtn385 BI LI T 0.6 mg/dL 02/14/2016 Comp Metabolic Fbv055 AL BUMIN 3.2 g/dL 02/14/2016 Comp Metabolic Mer985 TP RO 5.8 g/dL 02/14/2016 Comp Metabolic Rmp609 GL OB 2.6 g/dL 02/14/2016 Comp Metabolic Mrc209 A/ G Ratio 1.3 Ratio 02/14/2016 Comp Metabolic Wao537 Os mo 278 mOsmo 02/14/2016 Pt Rue9479 PT 34.6 seconds 02/06/2016 Pt Yeo6414 INR 3.7 02/06/2016 Pt Bvs4180 Low Intensity - 1.5-2.0 02/06/2016 Pt Dxg4703 Mod intensity - 2.0-3.0 02/06/2016 Pt Lny8469 Hi intensity - 3.0-4.0 02/06/2016 Pt Ygn5781 PT 33.3 seconds 01/23/2016 Pt Vhb7343 INR 3.5 01/23/2016 Pt Tbx8967 Low Intensity - 1.5-2.0 01/23/2016 Pt Wla1017 Mod intensity - 2.0-3.0 01/23/2016 Pt Pdp5195 Hi intensity - 3.0-4.0 01/23/2016 Pt Rtx1151 PT 30.5 seconds 12/31/2015 Pt Stu7492 INR 3.2 12/31/2015 Pt Kjs4510 Low Intensity - 1.5-2.0 12/31/2015 Pt Nes6100 Mod intensity - 2.0-3.0 12/31/2015 Pt Rkt8555 Hi intensity - 3.0-4.0 12/31/2015 Pt Zcq9265 PT 35.6 seconds 12/25/2015 Pt Vcz7868 INR 3.9 12/25/2015 Pt Elj8628 Low Intensity - 1.5-2.0 12/25/2015 Pt Vbc1653 Mod intensity - 2.0-3.0 12/25/2015 Pt Mcc1621 Hi intensity - 3.0-4.0 12/25/2015 Pt Gmd2285 PT 30.8 seconds 11/21/2015 Pt Rzh8496 INR 3.2 11/21/2015 Pt Cer7245 Low Intensity - 1.5-2.0 11/21/2015 Pt Ari7924 Mod intensity - 2.0-3.0 11/21/2015 Pt One3956 Hi intensity - 3.0-4.0 11/21/2015 Uric Acid [...] 30.0 pg 11/20/2015 Cbc With Differential Ord2 B[place]% 8.1 % 11/20/2015 Cbc With Differential Ord2 [...] 2.51 K/ul 11/20/2015 Cbc With Differential Ord2 [place] ABS# 0.9 K/ul 11/20/2015 Cbc With Differential Ord2 Eos ABS# 0.3 K/ul 11/20/2015 Cbc With Differential Ord2 Baso ABS# 0.0 K/ul 11/20/2015 Comp Metabolic Ere766 NA 137 mEq/L 10/22/2015 Comp Metabolic Fwd307 K 3.9 mEq/L 10/22/2015 Comp Metabolic Syc902 CL 100 mEq/L 10/22/2015 Comp Metabolic Beh260 CO2 31.0 mEq/L 10/22/2015 Comp Metabolic Ucn908 AN ION GAP 10 10/22/2015 Comp Metabolic Euv238 GL UCOSE 94 mg/dL 10/22/2015 Comp Metabolic Bmw348 Cr eat 1.0 mg/dL 10/22/2015 Comp Metabolic Tnf737 eG FR 55 ml/min/1.73m2 10/21 Comp Metabolic Sjz982 BUN 19 mg/dL 10/22/2015 Comp Metabolic Vlr523 B/ C Ratio 18.3 Ratio 10/22/2015 Comp Metabolic Eyn066 CA LCIUM 8.8 mg/dL 10/22/2015 Comp Metabolic Mpi326 AL K PHOS 83 U/L 10/22/2015 Comp Metabolic Hpb678 T(SGOT) 15 U/L 10/22/2015 Comp Metabolic Ptw977 AL T(SGPT) 13 U/L 10/22/2015 Comp Metabolic Meb891 BI LI T 0.9 mg/dL 10/22/2015 Comp Metabolic Lwv752 AL BUMIN 2.8 g/dL 10/22/2015 Comp Metabolic Ehe297 TP RO 5.4 g/dL 10/22/2015 Comp Metabolic Jgu724 GL OB 2.6 g/dL 10/22/2015 Comp Metabolic Srg496 A/ G Ratio 1.1 Ratio 10/22/2015 Comp Metabolic Egq954 Os mo 276 mOsmo 10/22/2015 Bili D Ord93 BILI D 0.1 mg/dL 10/22/2015 Bili D Ord93 BILI I 0.8 mg/dL 10/22/2015 Pt Fnz2786 PT 22.8 seconds 10/22/2015 Pt Piw2132 INR 2.1 10/22/2015 Pt Stu0466 Low Intensity - 1.5-2.0 10/22/2015 Pt Tmv2475 Mod intensity - 2.0-3.0 10/22/2015 Pt Bjs1151 Hi intensity - 3.0-4.0 10/22/2015 Pt Klw9667 PT 28.0 seconds 09/16/2015 Pt Vjx7103 INR 2.7 09/16/2015 Pt Ltk5022 Low Intensity - 1.5-2.0 09/16/2015 Pt Smt1220 Mod intensity - 2.0-3.0 09/16/2015 Pt Dzc8864 Hi intensity - 3.0-4.0 09/16/2015 Tsh Ord6 hTSH II 1.40 uIU/mL 09/16/2015 Free T4 Tza138 FREE T4 1.73 ng/dL 09/16/2015 Lipid Ord30 CHOL 169 mg/dL 09/16/2015 Lipid Ord30 HDL 66.0 mg/dl 09/16/2015 Lipid Ord30 TRIG 78 mg/dL 09/16/2015 Lipid Ord30 LDL 87 mg/dL 09/16/2015 Lipid Ord30 C/HDL 2.6 Ratio 09/16/2015 Pt Fbi9497 PT 26.6 seconds 08/21/2015 Pt Ymg1419 INR 2.6 08/21/2015 Pt Dii0035 Low Intensity - 1.5-2.0 08/21/2015 Pt Cme0530 Mod intensity - 2.0-3.0 08/21/2015 Pt Gyc9611 Hi intensity - 3.0-4.0 08/21/2015 Comp Metabolic Ijd253 NA 141 mEq/L 08/08/2015 Comp Metabolic Tvi043 K 3.3 mEq/L 08/08/2015 Comp Metabolic Pou332 CL 102 mEq/L 08/08/2015 Comp Metabolic Oki330 CO2 31.0 mEq/L 08/08/2015 Comp Metabolic Ppk378 AN ION GAP 11 08/08/2015 Comp Metabolic Fjk494 GL UCOSE 83 mg/dL 08/08/2015 Comp Metabolic Gar731 Cr eat 1.0 mg/dL 08/08/2015 Comp Metabolic Kbi509 eG FR 55 ml/min/1.73m2 08/08 Comp Metabolic Pnt549 BUN 19 mg/dL 08/08/2015 Comp Metabolic Dpu184 B/ C Ratio 18.3 Ratio 08/08/2015 Comp Metabolic Rxy444 CA LCIUM 8.9 mg/dL 08/08/2015 Comp Metabolic Nhc931 AL K PHOS 84 U/L 08/08/2015 Comp Metabolic Jep413 T(SGOT) 20 U/L 08/08/2015 Comp Metabolic Biv287 AL T(SGPT) 18 U/L 08/08/2015 Comp Metabolic Shj184 BI LI T 0.6 mg/dL 08/08/2015 Comp Metabolic Kkq496 AL BUMIN 3.3 g/dL 08/08/2015 Comp Metabolic Gfo438 TP RO 5.9 g/dL 08/08/2015 Comp Metabolic Vav528 GL OB 2.6 g/dL 08/08/2015 Comp Metabolic Rpx584 A/ G Ratio 1.3 Ratio 08/08/2015 Comp Metabolic Noy713 Os mo 283 mOsmo 08/08/2015 Cbc With [...] 30.0 pg 08/08/2015 Cbc With Differential Ord2 [place]% 8.2 % 08/08/2015 Cbc With Differential Ord2 [...] 2.90 K/ul 08/08/2015 Cbc With Differential Ord2 [place] ABS# 0.9 K/ul 08/08/2015 Cbc With Differential [...] Ord93 BILI I 0.5 mg/dL 08/08/2015 Pt Kld3575 PT 31.8 seconds 08/05/2015 Pt Kmb8447 INR 3.2 08/05/2015 Pt Tme0449 Low Intensity - 1.5-2.0 08/05/2015 Pt Nmc5509 Mod intensity - 2.0-3.0 08/05/2015 Pt Std9095 Hi intensity - 3.0-4.0 08/05/2015 Pt Hgi9140 PT 27.4 seconds 06/27/2015 Pt Cnx7514 INR 2.6 06/27/2015 Pt Uld2690 Low Intensity - 1.5-2.0 06/27/2015 Pt Xyw6896 Mod intensity - 2.0-3.0 06/27/2015 Pt Xns0681 Hi intensity - 3.0-4.0 06/27/2015 Tsh Ord6 [...] Ord2 RDW 15.1 % 05/31/2015 Free T4 Ldx543 FREE T4 1.89 ng/dL 05/31/2015 Comp Metabolic Cte847 NA 140 mEq/L 05/31/2015 Comp Metabolic Tsi237 K 3.3 mEq/L 05/31/2015 Comp Metabolic Ovi717 CL 99 mEq/L 05/31/2015 Comp Metabolic Yzr701 CO2 30.0 mEq/L 05/31/2015 Comp Metabolic Bfb755 AN ION GAP 14 05/31/2015 Comp Metabolic Cjj142 GL UCOSE 70 mg/dL 05/31/2015 Comp Metabolic Ppb086 Cr eat 1.0 mg/dL 05/31/2015 Comp Metabolic Fdx389 eG FR 55 ml/min/1.73m2 05/31 Comp Metabolic Yvu418 BUN 23 mg/dL 05/31/2015 Comp Metabolic Gst246 B/ C Ratio 22.1 Ratio 05/31/2015 Comp Metabolic Pxl467 CA LCIUM 8.9 mg/dL 05/31/2015 Comp Metabolic Blm823 AL K PHOS 86 U/L 05/31/2015 Comp Metabolic Nuq453 T(SGOT) 28 U/L 05/31/2015 Comp Metabolic Bdr848 AL T(SGPT) 30 U/L 05/31/2015 Comp Metabolic Gdd242 BI LI T 0.4 mg/dL 05/31/2015 Comp Metabolic Pbs612 AL BUMIN 3.3 g/dL 05/31/2015 Comp Metabolic Bav534 TP RO 6.0 g/dL 05/31/2015 Comp Metabolic Dtd316 GL OB 2.7 g/dL 05/31/2015 Comp Metabolic Vvw926 A/ G Ratio 1.2 Ratio 05/31/2015 Comp Metabolic Imb532 Os mo 282 mOsmo 05/31/2015 Pt Lcb3955 PT 23.3 seconds 04/15/2015 Pt Osw5264 INR 2.2 04/15/2015 Pt Fdd5947 Low Intensity - 1.5-2.0 04/15/2015 Pt Isv0833 Mod intensity - 2.0-3.0 04/15/2015 Pt Kce2183 Hi intensity - 3.0-4.0 04/15/2015 Pt Zgn4762 PT 19.5 seconds 04/04/2015 Pt Tgc9473 INR 1.7 04/04/2015 Pt Avb6022 Low Intensity - 1.5-2.0 04/04/2015 Pt Ktq0430 Mod intensity - 2.0-3.0 04/04/2015 Pt Tad0571 Hi intensity - 3.0-4.0 04/04/2015 Pt Ajs0669 PT 39.8 seconds 04/01/2015 Pt Glu4198 INR 4.3 04/01/2015 Pt Olh9291 Low Intensity - 1.5-2.0 04/01/2015 Pt Zft8178 Mod intensity - 2.0-3.0 04/01/2015 Pt Tkb5956 Hi intensity - 3.0-4.0 04/01/2015 Metabolic Ord15 [...] Metabolic Ord15 CALCIUM 8.7 mg/dL 02/28/2015 Pt Xml5419 PT 31.4 seconds 02/28/2015 Pt Aib6128 INR 3.2 02/28/2015 Pt Zbz8671 Low Intensity - 1.5-2.0 02/28/2015 Pt Syp3696 Mod intensity - 2.0-3.0 02/28/2015 Pt Loe8503 Hi intensity - 3.0-4.0 02/28/2015 Pt Naf4518 PT 23.2 seconds 01/18/2015 Pt Syr0122 INR 2.1 01/18/2015 Pt Hxp1016 Low Intensity - 1.5-2.0 01/18/2015 Pt Qrc1886 Mod intensity - 2.0-3.0 01/18/2015 Pt Axg7610 Hi intensity - 3.0-4.0 01/18/2015 Pt Usd1605 PT 18.2 seconds 01/10/2015 Pt Kye7529 INR 1.6 01/10/2015 Pt Vdu1092 Low Intensity - 1.5-2.0 01/10/2015 Pt Srr4703 Mod intensity - 2.0-3.0 01/10/2015 Pt Szl0992 Hi intensity - 3.0-4.0 01/10/2015 Review of [...] gingiva 08/16/2018 None Full Exam - General 1995 Ears/Nose/Throat lips/teeth/gingiva Overall: no masses 08/16/2018 None [...] Date URINALYSIS NONAUTO W /O SCOPE CPT-4: 11456 12/05/2018 ROCEPHIN, PER 250 MG CPT-4: J0696 10/27/2018 URINALYSIS NONAUTO W /O SCOPE CPT-4: 42108 10/27/2018 ADMIN INFLUENZA VIRU S VAC CPT-4: G0008 03/24/2018 ADMIN PNEUMOCOCCAL V ACCINE SNOMED CT: 37137920 CPT-4: G0009 03/24/2018 FLU VACC PRSV FREE I NC ANTIG Formatting Model/CDA Sections, Assigned to/Dorothea Tan CPT-4: 19790Yyugxfq 03/24/2018 Pneumococcal Polysac charide Vaccine, 23-Valent, Ad CPT-4: 05481 03/24/2018 TRIAMCINOLONE ACET I [place] NOS CPT-4: J3301 06/15/2017 THER/PROPH/DIAG INJ SC/IM CPT-4: 67603 06/15/2017 ADMIN PNEUMOCOCCAL V ACCINE SNOMED CT: 60706155 CPT-4: G0009 03/16/2017 ADMIN INFLUENZA VIRU S VAC CPT-4: G0008 03/16/2017 FLU VAC NO PRSV 4 VA L 3 YRS+ CPT-4: 82464 03/16/2017 PNEUMOCOCCAL VACC [address]: 51399499 CPT-4: 32516 03/16/2017 URINALYSIS NONAUTO W /O SCOPE CPT-4: 48589 08/26/2016 THER/PROPH/DIAG INJ SC/IM CPT-4: 68732 07/22/2016 TRIAMCINOLONE ACET I [place] NOS CPT-4: J3301 07/22/2016 ROCEPHIN, PER 250 MG CPT-4: J0696 07/22/2016 TRIAMCINOLONE ACET I [place] NOS CPT-4: J3301 02/05/2015 Vital Signs Date Vital 12/05/2018 Blood Pressure 1: 132/70 Code: 8480-6 BMI: 32.4 Code: 09685-0 Heart Rate 1: 84 bpm Height: 5'7" SpO2: 91% Weight: 207 lbs 11/17/2018 Blood Pressure 1: 102/62 Code: 8480-6 BMI: 32.4 Code: 01822-2 Heart Rate 1: 83 bpm Height: 5'7" SpO2: 94% Weight: 207 lbs 10/27/2018 Blood Pressure 1: 120/74 Code: 8480-6 BMI: 32.4 Code: 60973-5 Heart Rate 1: 65 bpm Height: 5'7" SpO2: 97% Weight: 207 lbs 09/27/2018 Blood Pressure 1: 128/74 Code: 8480-6 BMI: 32.4 Code: 53162-1 Heart Rate 1: 92 bpm Height: 5'7" SpO2: 97% Weight: 207 lbs 08/16/2018 Blood Pressure 1: 104/66 Code: 8480-6 BMI: 32.3 Code: 35376-4 Heart Rate 1: 94 bpm Height: 5'7" SpO2: 96% Weight: 206 lbs 07/11/2018 Blood Pressure 1: 102/68 Code: 8480-6 BMI: 34.5 Code: 89356-5 Heart Rate 1: 101 bpm Height: 5'7" SpO2: 98% Weight: 220 lbs 03/24/2018 Blood Pressure 1: 130/72 Code: 8480-6 BMI: 33.4 Code: 15864-7 Heart Rate 1: 82 bpm Height: 5'7" SpO2: 93% Weight: 213 lbs 11/18/2017 Blood Pressure 1: 128/70 Code: 8480-6 BMI: 33.6 Code: 36325-1 Heart Rate 1: 98 bpm Height: 5'7" SpO2: 97% Weight: 214 lbs 8 oz 09/30/2017 Blood Pressure 1: 100/50 Code: 8480-6 BMI: 34.0 Code: 16016-7 Heart Rate 1: 66 bpm Height: 5'7" SpO2: 96% Weight: 217 lbs 08/17/2017 Blood Pressure 1: 104/60 Code: 8480-6 BMI: 33.7 Code: 21762-7 Heart Rate 1: 99 bpm Height: 5'7" SpO2: 97% Weight: 215 lbs 06/15/2017 Blood Pressure 1: 120/64 Code: 8480-6 BMI: 33.5 Code: 10054-6 Heart Rate 1: 91 bpm Height: 5'7" SpO2: 94% Weight: 214 lbs 04/01/2017 Blood Pressure 1: 110/68 Code: 8480-6 BMI: 154.4 Code: 43732-4 Heart Rate 1: 66 bpm Height: 2'7" SpO2: 95% Weight: 211 lbs 03/16/2017 Blood Pressure 1: 130/72 Code: 8480-6 BMI: 33.0 Code: 74552-5 Heart Rate 1: 95 bpm Height: 5'7" SpO2: 97% Weight: 211 lbs 02/09/2017 Blood Pressure 1: 120/70 Code: 8480-6 BMI: 32.9 Code: 99566-8 Heart Rate 1: 78 bpm Height: 5'7" SpO2: 96% Weight: 210 lbs 10/13/2016 Blood Pressure 1: 118/76 Code: 8480-6 BMI: 32.6 Code: 41350-6 Heart Rate 1: 97 bpm Height: 5'7" SpO2: 98% Weight: 208 lbs 07/31/2016 Blood Pressure 1: 110/64 Code: 8480-6 BMI: 32.1 Code: 45693-8 Heart Rate 1: 79 bpm Height: 5'7" SpO2: 94% Weight: 205 lbs 07/22/2016 Blood Pressure 1: 108/74 Code: 8480-6 BMI: 32.1 Code: 22055-3 Heart Rate 1: 71 bpm Height: 5'7" SpO2: 97% Temperature: 36.9 (C ) / 98.4 (F) Weight: 205 lbs 05/01/2016 Blood Pressure 1: 120/72 Code: 8480-6 BMI: 32.7 Code: 41644-7 Heart Rate 1: 75 bpm Height: 5'7" SpO2: 94% Weight: 209 lbs 04/06/2016 Blood Pressure 1: 106/62 Code: 8480-6 BMI: 32.7 Code: 51094-6 Heart Rate 1: 83 bpm Height: 5'7" SpO2: 97% Weight: 209 lbs 03/06/2016 Blood Pressure 1: 112/68 Code: 8480-6 BMI: 32.7 Code: 86192-2 Heart Rate 1: 90 bpm Height: 5'7" SpO2: 97% Weight: 209 lbs 03/03/2016 Blood Pressure 1: 120/62 Code: 8480-6 BMI: 32.7 Code: 24973-9 Heart Rate 1: 92 bpm Height: 5'7" SpO2: 98% Weight: 209 lbs 02/07/2016 Blood Pressure 1: 110/64 Code: 8480-6 BMI: 32.7 Code: 01522-4 Heart Rate 1: 87 bpm Height: 5'7" SpO2: 97% Weight: 209 lbs 12/13/2015 Blood Pressure 1: 110/64 Code: 8480-6 BMI: 33.5 Code: 07132-0 Heart Rate 1: 90 bpm Height: 5'7" SpO2: 97% Weight: 214 lbs 12/03/2015 Blood Pressure 1: 132/76 Code: 8480-6 BMI: 33.4 Code: 95630-0 Heart Rate 1: 82 bpm Height: 5'7" SpO2: 99% Weight: 213 lbs 11/20/2015 Blood Pressure 1: 108/68 Code: 8480-6 BMI: 32.4 Code: 37075-7 Heart Rate 1: 77 bpm Height: 5'7" SpO2: 97% Weight: 207 lbs 09/17/2015 Blood Pressure 1: 122/76 Code: 8480-6 BMI: 33.0 Code: 50238-5 Heart Rate 1: 91 bpm Height: 5'7" SpO2: 97% Weight: 211 lbs 05/31/2015 Blood Pressure 1: 128/82 Code: 8480-6 BMI: 33.4 Code: 75538-0 Heart Rate 1: 98 bpm Height: 5'7" SpO2: 99% Weight: 213 lbs 02/05/2015 Blood Pressure 1: 128/80 Code: 8480-6 BMI: 32.6 Code: 48788-5 Heart Rate 1: 86 bpm Height: 5'7" SpO2: 97% Weight: 208 lbs 11/20/2014 Blood Pressure 1: 128/90 Code: 8480-6 BMI: 30.9 Code: 44783-0 Heart Rate 1: 94 bpm Height: 5'7" [...] ongoing 11/20/2015 None Hospital Follow Up _ [facility] er: fall 09/17/2015 None Hospital [...] Findings Denies fever 05/31/2015 None hypothyroid [employer] 02/05/2015 None hypothyroid Pertinent Findings coarse [...] Denies extremity weakness 11/20/2014 None hypothyroid [employer] silvestre 11/20/2014 None hypothyroid Pertinent Findings coarse hair 11/20/2014 None hypothyroid Pertinent Findings dry skin 11/20/2014 None hypothyroid Pertinent Findings hair loss 11/20/2014 None edema Quality intermitte nt 11/20/2014 None edema Location on both l egs 11/20/2014 None edema Location on both a nkles 11/20/2014 None Advance Directives No Advance Directive data Encounters Encounter Performer Loca tion Codes Date () 00052 EST. P ATIENT, LEVEL III Diagnosis: Urinary tract infection, site not specified[ICD10: N39.0] Brielle Pisano MD, [facility] CPT-4: 66142 12/05/2018 ([id number]) 20050 EST. P ATIENT, LEVEL III Diagnosis: Contusion of right lower leg, initial encounter[ICD10: S80.11XA] Diagnosis: alf (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[ICD10: Z79.01] Brielle Pisano MD, [facility] CPT-4: 96583 11/17/2018 ([id number]) 08978 EST. P ATIENT, LEVEL III Diagnosis: Urinary tract infection, site not specified[ICD10: N39.0] Brielle Pisano MD, [facility] CPT-4: 74984 10/27/2018 ([id number]) 85759 EST. P ATIENT, LEVEL IV Diagnosis: Atrophy of thyroid (acquired)[ICD10: E03.4] Diagnosis: Essential (primary) hypertension[ICD10: I10] Diagnosis: Other allergic rhinitis[ICD10: J30.89] Diagnosis: Other skin changes[ICD10: R23.8] Diagnosis: Chronic atrial fibrillation[ICD10: I48.2] Diagnosis: 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[ICD10: Z79.01] Valerie Pisano MD, [facility] CPT-4: 76254 09/27/2018 ([id number]) 83771 EST. P ATIENT, LEVEL IV Diagnosis: Essential (primary) hypertension[ICD10: I10] Diagnosis: Atrophy of thyroid (acquired)[ICD10: E03.4] Diagnosis: Sebaceous cyst[ICD10: L72.3] Diagnosis: Chronic atrial fibrillation[ICD10: I48.2] Diagnosis: alf (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[ICD10: Z79.01] Valerie Pisano MD, C CPT-4: 50461 08/16/2018 ([id number]) 35505 EST. P ATIENT, LEVEL IV Diagnosis: Atrophy of thyroid (acquired)[ICD10: E03.4] Diagnosis: Essential (primary) hypertension[ICD10: I10] Diagnosis: Other fatigue[ICD10: R53.83] Diagnosis: Localized edema[ICD10: R60.0] Valerie Pisano MD, [facility] CPT-4: 87334 07/11/2018 ([id number]) 48785 EST. P ATIENT, LEVEL IV Diagnosis: Essential (primary) hypertension[ICD10: I10] Diagnosis: Atrophy of thyroid (acquired)[ICD10: E03.4] Diagnosis: Chronic atrial fibrillation[ICD10: I48.2] Valerie Pisano MD, C CPT-4: 21117 03/24/2018 ([id number]) 32052 EST. P ATIENT, LEVEL IV Diagnosis: Essential (primary) hypertension[ICD10: I10] Diagnosis: Atrophy of thyroid (acquired)[ICD10: E03.4] Diagnosis: Chronic atrial fibrillation[ICD10: I48.2] Valerie Pisano MD, [facility] CPT-4: 90945 11/18/2017 48043 EST. PATIENT, LEVEL IV Diagnosis: Localized edema[ICD10: R60.0] Roxie Pisano MD, [facility] CPT-4: 86762 09/30/2017 ([id number]) 65702 EST. P ATIENT, LEVEL III Diagnosis: Essential (primary) hypertension[ICD10: I10] Valerie Pisano MD, C CPT-4: 61750 08/17/2017 ([id number]) 57700 EST. P ATIENT, LEVEL IV Diagnosis: Essential (primary) hypertension[ICD10: I10] Diagnosis: Atrophy of thyroid (acquired)[ICD10: E03.4] Diagnosis: Chronic atrial fibrillation[ICD10: I48.2] Diagnosis: Cervicalgia[ICD10: M54.2] Diagnosis: Other muscle spasm[ICD10: M62.838] Valerie Pisano MD, [facility] CPT- 4: 99299 06/15/2017 61178 EST. PATIENT, LEVEL III Diagnosis: Laceration without foreign body of other finger without damage to nail, initial encounter[ICD10: S61.218A] Roxie Pisano MD, [facility] CPT-4: 96478 04/01/2017 ([id number]) 40601 EST. P ATIENT, LEVEL IV Diagnosis: Chronic atrial fibrillation[ICD10: I48.2] Diagnosis: 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[ICD10: Z79.01] Diagnosis: Encounter for immunization[ICD10: Z23] Diagnosis: Atrophy of thyroid (acquired)[ICD10: E03.4] Valerie Pisano MD, [facility] CPT-4: 37267 03/16/2017 ([id number]) 83062 EST. P ATIENT, LEVEL IV Diagnosis: Chronic atrial fibrillation[ICD10: I48.2] Diagnosis: Essential (primary) hypertension[ICD10: I10] Diagnosis: Other fatigue[ICD10: R53.83] Diagnosis: alf (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[ICD10: Z79.01] Diagnosis: Atrophy of thyroid (acquired)[ICD10: E03.4] Valerie Pisano MD, [facility] CPT-4: 63619 02/09/2017 ([id number]) 40890 EST. P ATIENT, LEVEL IV Diagnosis: Essential (primary) hypertension[ICD10: I10] Diagnosis: Chronic atrial fibrillation[ICD10: I48.2] Diagnosis: Tinea corporis[ICD10: B35.4] Diagnosis: alf (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[ICD10: Z79.01] Diagnosis: Other skin changes[ICD10: R23.8] Valerie Pisano MD, [facility] CPT-4: 42558 10/13/2016 93134 EST. PATIENT, LEVEL III Diagnosis: Other acute sinusitis[ICD10: J01.80] Diagnosis: Other allergic rhinitis[ICD10: J30.89] Roxie Pisano MD, [facility] CPT-4: 20350 07/31/2016 ([id number]) 51104 EST. P ATIENT, LEVEL III Diagnosis: Acute recurrent maxillary sinusitis[ICD10: J01.01] Valerie Pisano MD, [facility] CPT-4: 65346 07/22/2016 34350 EST. PATIENT, LEVEL IV Diagnosis: Essential (primary) hypertension[ICD10: I10] Diagnosis: Other allergic rhinitis[ICD10: J30.89] Diagnosis: Localized edema[ICD10: R60.0] Roxie Pisano MD, [facility] CPT-4: 29082 05/01/2016 87519 EST. PATIENT, LEVEL III Diagnosis: Cellulitis of left lower limb[ICD10: L03.116] Diagnosis: Localized edema[ICD10: R60.0] Roxie Pisano MD, [facility] CPT-4: 54788 04/06/2016 ([id number]) Miscellaneou s no charge Diagnosis: Cellulitis of left lower limb[ICD10: L03.116] Diagnosis: Localized edema[ICD10: R60.0] Roxie Pisano MD, [facility] CPT-4: 83922 03/10/2016 ([id number]) Miscellaneou s no charge Diagnosis: Cellulitis of left lower limb[ICD10: L03.116] Roxie Pisano MD, [facility] CPT-4: 77587 03/06/2016 92918 EST. PATIENT, LEVEL IV Diagnosis: Cellulitis of left lower limb[ICD10: L03.116] Diagnosis: Localized edema[ICD10: R60.0] Roxie Pisano MD, [facility] CPT-4: 91295 03/03/2016 ([id number]) 36572 EST. P ATIENT, LEVEL III Diagnosis: Essential (primary) hypertension[ICD10: I10] Diagnosis: 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[ICD10: Z79.01] Diagnosis: Chronic atrial fibrillation[ICD10: I48.2] Brielle Pisano MD, [facility] CPT-4: 48262 02/07/2016 ([id number]) 99571 EST. P ATIENT, LEVEL III Diagnosis: Iliotibial band syndrome, right leg[ICD10: M76.31] Diagnosis: Localized edema[ICD10: R60.0] Brielle Pisano MD, [facility] CPT- 4: 07681 12/13/2015 ([id number]) 33705 EST. P ATIENT, LEVEL III Diagnosis: Localized edema[ICD10: R60.0] Diagnosis: Essential (primary) hypertension[ICD10: I10] Brielle Pisano MD, [facility] CPT-4: 50621 12/03/2015 ([id number]) 18228 EST. P ATIENT, LEVEL IV Diagnosis: 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[ICD10: Z79.01] Diagnosis: Other skin changes[ICD10: R23.8] Diagnosis: Localized edema[ICD10: R60.0] Diagnosis: Pain in right foot[ICD10: M79.671] Valerie Pisano MD, [facility] CPT- 4: 97803 11/20/2015 21861 EST. PATIENT, LEVEL IV Diagnosis: Essential (primary) hypertension[ICD10: I10] Diagnosis: alf (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[ICD10: Z79.01] Diagnosis: Muscle spasm of back[ICD10: M62.830] Roxie Pisano MD, [facility] CPT- 4: 51499 09/17/2015 ([id number]) 43014 EST. P ATIENT, LEVEL IV Diagnosis: Localized edema[ICD10: R60.0] Diagnosis: Other specified hypothyroidism[ICD10: E03.8] Diagnosis: Essential (primary) hypertension[ICD10: I10] Brielle Pisano MD, [facility] CPT-4: 29357 05/31/2015 ([id number]) 87821 EST. P ATIENT, LEVEL III Diagnosis: ALLERGIC RHINITIS[ICD9: 477.9] Diagnosis: ESSENTIAL HYPERTENSION[ICD9: 401.9] Brielle Pisano MD, [facility] CPT-4: 39590 02/05/2015 ([id number]) OFFICE [facility] - LEVEL 4 Diagnosis: ESSENTIAL HYPERTENSION[ICD9: 401.9] Diagnosis: HYPOTHYROIDISM[ICD9: 244.9] Diagnosis: ACTINIC KERATOSIS[ICD9: 702.0] Valerie Pisano MD, [facility] CPT-4: 18066 11/20/2014 Plan of Care Planned Activity Notes C odes Status Date Visit Plan: UTI - pt with positive urinalysis - culture sent if appropriate. Antibiotic electronically prescribed to pt's pharmacy of choice. Pt to call if symptoms do not improve. 12/05/2018 Patient Education: Patient Medication Summary Completed 12/05/2018 Care Plan: Urine Culture Pending 12/05/2018 Visit Plan: Contusion -right lower leg -continue to monitor symptoms -call if does not resolve or other symptoms develop. Patient verbalized understanding of plan. oysterman use of anti coagulants -check PT/INR 11/17/2018 Appointment: Dirk Brielle WPtel: [phone] [phone] (30 min) Complex 11/17/2018 Patient Education: Patient Medication Summary Completed 11/17/2018 Visit Plan: UTI - pt with positive urinalysis - culture sent if appropriate. Antibiotic electronically prescribed to pt's pharmacy of choice. Pt to call if symptoms do not improve. 10/27/2018 Appointment: [phone] (10 min) Simple 10/27/2018 Patient Education: [...] Dr. Hernandez. 09/27/2018 Appointment: Valerie Pisano WPtel: [phone] [facility] (15 min) Moderate 09/27/2018 Patient Education: Patient [...] 4mg daily. 08/16/2018 Appointment: Valerie Pisano WPtel: [facility] (15 min) Moderate 08/16/2018 Patient Education: Patient Medication Summary Completed 08/16/2018 Patient Education: Hypertension Completed 08/16/2018 Patient Education: Patient Medication Summary Completed 07/29/2018 Appointment: Brielle Cavazos WPtel: [facility]1 [phone] [place] (15 min) Moderate 07/12/2018 [...] daily. 07/11/2018 App[facility]ment: [phone] ([facility]) Moderate 07/11/2018 Patient Education: [...] today. 03/24/2018 Appointment: [phone] [place] (15 min) Moderate 03/24/2018 Patient Education: Patient [...] of control. 11/18/2017 Appointment: Valerie Pisano WPtel: [facility]5 [facility] (15 min) Moderate 11/18/2017 Patient Education: Patient Medication Summary Completed 11/18/2017 Referral: [facility] WPtel: 1 [facility]6[address] Pt notified at appointment Appointment [...] Unna Boots 09/30/2017 Appointment: Roxie Cazares WPtel: [facility]0 [facility] (30 min) Complex 09/30/2017 Patient Education: Patient Medication Summary Completed 09/30/2017 Care Plan: Referral Order SNOMED-CT : 302208794 Pending 09/30/2017 Visit Plan: Hypertension - well [...] this time. 08/17/2017 Appointment: [phone] [place] (15 min) Moderate 08/17/2017 Patient Education: Patient [...] neck muscles. allergies - kenalog 40mg im [employer] squibb - lot # [id number] expires september 2018 06/15/2017 Visit Plan: Hypertension [...] neck muscles. 06/15/2017 Appointment: [facility]el[phone] (15 min) Moderate 06/15/2017 Patient Education: Patient Medication Summary Completed 06/15/2017 Care Plan: Referral Order SNOMED-CT : [id number] Pending 06/15/2017 Appointment: Nurse Visit 04/05/2017 Appointment: [...] tetanus booster. 04/01/2017 Appointment: [facility]ox[facility]azares [facility]Ptel[phone] (15 min) Moderate 04/01/2017 Patient Education: [...] shot today 03/16/2017 Appointment: [phone] (15 min) Moderate 03/16/2017 Patient Education: [...] of control. 1 pill wed/wed/wed, 1/2 pill //wed/sun take - This is a new order [...] allergy spray. 02/09/2017 Appointment: Valerie Pisano WPtel: [address] [place], [place] [address] (15 min) Moderate 02/09/2017 Patient Education: Patient [...] for nystatin 10/13/2016 Appointment: Valerie Pisano WPtel: [phone] [facility] (15 min) Moderate 10/13/2016 Patient Education: Patient Medication Summary Completed 10/13/2016 Patient Education: Obesity Completed 10/13/2016 Patient Education: Hypertension Completed 10/13/2016 Care Plan: Urine Culture Pending 08/31/2016 Appointment: Roxie Cazares WPtel: [facility]0 [address] Lab Draw 08/27/2016 Appointment: Nurse Visit 08/26/2016 [...] allergy spray. 07/31/2016 Appointment: Brielle Cavazos WPtel: [facility]7 [phone] (30 min) Complex 07/31/2016 Patient Education: Patient Medication Summary Completed 07/31/2016 Patient Education: Obesity Completed 07/31/2016 Visit Plan: Sinusitis - Pt has acut e infection - pain in face, maxillary region, Pt informed to use decongestant, RX given to patient, sinus rinses also recommended. Call if symptoms do not show improvement. 07/22/2016 Appointment: Valerie Pisano WPtel: [facility]4 [facility] (15 min) Moderate 07/22/2016 Patient Education: Patient [...] edema. 05/01/2016 Appointment: Brielle Cavazos WPtel: [phone] [phone] (30 min) Complex 05/01/2016 Patient Education: Patient [...] edema. 04/06/2016 Appointment: Roxie Cazares WPtel: [phone] [phone] (30 min) Complex 04/06/2016 Patient Education: Patient Medication Summary Completed 04/06/2016 Patient Education: Obesity Completed 04/06/2016 Visit Plan: left foot - improved - pt finished with antibiotics - continue to monitor - notify clinic with any concerns. Repeat INR today. 03/10/2016 Appointment: Brielle Cavazos WPtel: [phone] [phone] (30 min) Complex 03/10/2016 Patient Education: Patient Medication Summary Completed 03/10/2016 Visit Plan: Cellulitis - continue w ith oral antibiotics as previously directed, return to clinic as previously directed, call for acute change in symptoms, worsening redness, warmth, discharge. 03/06/2016 Appointment: Birelle Cavazos WPtel: [facility] (15 min) Moderate 03/06/2016 Patient Education: Patient Medication Summary Completed 03/06/2016 Patient Education: Obesity Completed 03/06/2016 Visit Plan: Cellulitis - continue w ith oral antibiotics as previously directed, return to clinic as previously directed, call for acute change in symptoms, worsening redness, warmth, discharge. 03/03/2016 Appointment: Brielle Cavazos WPtel: [address] [place], [place] [phone] (15 min) Moderate 03/03/2016 Patient Education: Patient [...] and 3.5. 02/07/2016 Appointment: Brielle Cavazos WPtel: [facility]5 [place] [phone] (30 min) Complex 02/07/2016 Patient Education: Patient Medication Summary Completed 02/07/2016 Patient Education: Obesity Completed 02/07/2016 Patient Education: Hypertension Completed 02/07/2016 Appointment: Brielle Cavazos WPtel: [phone] [phone] (30 min) Complex 02/04/2016 Visit [...] edema. 12/13/2015 Appointment: Brielle Cavazos WPtel: [phone] [phone] (15 min) Moderate 12/13/2015 Patient Education: Patient [...] home. 12/03/2015 Appointment: Brielle Cavazos WPtel: [phone] [phone] (30 min) Complex 12/03/2015 Patient [...] Hypertension Completed 02/05/2015 Appointment: Valerie Pisano WPtel: [facility]3 [facility] (15 min) Moderate 01/29/2015 Visit Plan: Hypertension [...] control. 11/20/2014 Appointment: Valerie Pisano WPtel: [phone] [facility] [place] ([place]) New Patient 11/20/2014 Patient Education: Patient Medication Summary Completed 11/20/2014 Patient Education: Hypertension Completed 11/20/2014 Patient Education: Patient Medication Summary Completed 10/19/2014 Referral: [facility] WPtel: Referral Appointment Requested Referral: [facility] WPtel: [address] [id number] [place] Referral Appointment Confirmed Instructions Comment . UTI [...] twice daily. get blood work one w [place] before next appt - fasting labs Decrease [...] further attempt to reduce peripheral edema. . Edema - pt has bee n [...] physical therapy - will refer to [facility]. RX for voltaren to neck muscles. allergies - kenalog 40mg im [employer] squibb - lot # [id number] expires september 2018 . Hypertension - wel [...] physical therapy - will refer to [facility]. RX for voltaren to neck [...] further attempt to reduce peripheral edema. [facility] while on the levaquin. [...] symptoms develop. Patient verbalized understanding of plan. alf use of anti coagulants -check PT/INR . [...]
--- OUTSIDE RECORDS SUMMARY | 2019-09-12 10:58 | XMS REPORT | CCD ---
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 Name Role Phone PP Unavailable CCM Unavailable Summary Purpose Interface Exchange Insurance Providers Payer name Policy type / Coverage type Covered republican ID Effective Begin Date Effective End Date WPS Medicare Part B Medicare Part B [id number] 2018 Unknown [employer] Medicare Part B [id number] 2018 Unknown Family history Sister Diagnosis Age At Onset defect Unknown Breast cancer Unknown Daughter Diagnosis Age At Onset Breast cancer Unknown Mother Diagnosis Age At Onset No Family Disease Entered N/A Social History Social History Element Codes Description Effective Dates Marital status Unknown M arried Lane 11/20/2014 Number of children Unknown 6 11/20/2014 Employment Unknown Retir ed 11/20/[address]: 3258355 Quit over 10 years ago 1963 11/20/2014 [...] ICD-9: 924.4 ICD-10: S80.11XA 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/2018 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 ICD-9: V58.61 ICD-10: [...] Unknown HYPOTHYROIDISM ICD-9: 244.9 Active 11/19/2014 Unknown intermediate current us 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 therapy ICD-9: V58.61 Active 10/19/2014 Unknown Problems Condition Codes Effectiv e Dates Condition Status Urinary tract infect ion, site not specified ICD-9: 599.0 ICD-10: N39.0 02/13/2016 Active Contusion of right l ower leg, initial encounter ICD-9: 924.4 ICD-10: S80.11XA 11/17/2018 Active intermediate (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 ICD-9: V58.61 ICD-10: [...] 11/19/2014 Active HYPOTHYROIDISM ICD-9: 244.9 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/2014 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 ICD-9: V58.61 10/19/2014 Active Medications Medication Codes Instruc tions Start Date Stop Date Sta Fill Instructions Keflex 500 mg capsule RxNorm: 557715 1 Capsule(s) PO TID 12/05/2018 12/11/2018 Active Pyridium 200 mg tablet RxNorm: 6457618 1 Tablet(s) PO TID PRN 12/05/2018 No Stop Date Active Keflex 500 mg capsule RxNorm: 370151 1 Capsule(s) PO TID 11/17/2018 11/21/2018 Inactive doxycycline hyclate 100 mg capsule RxNorm: 8738154 1 Capsule(s) PO BID 10/31/2018 10/30/2018 In active doxycycline hyclate 100 mg capsule RxNorm: 2821719 1 Capsule(s) PO BID 10/31/2018 11/06/2018 In active Keflex 500 mg capsule RxNorm: 599049 1 Capsule(s) PO TID 10/27/2018 10/30/2018 Inactive ceftriaxone 500 mg s olution for injection RxNorm: 9363506 Inj 10/27/2018 10/27/2018 Inactive Coumadin 4 mg tablet RxNorm: 060184 1 Tablet(s) PO daily 08/16/2018 08/10/2019 Active this is an update to her RX - she will l et you know when she needs refill triamcinolone aceton sreekanth 0.025 % topical cream RxNorm: 8711691 1 Application TOP QI D 08/16/2018 No Stop Date Active levothyroxine 125 mc g tablet RxNorm: 977854 TAKE ONE TABLET BY [facility] DAILY ON WEDNESDAY, WED, AND WEDNESDAY, AND 1/2 TABLET ON ., , WED AND CYRIL. TAKE ON AN EMPTY STOMACH 08/04/2018 04/30/2019 Active meclizine 25 mg tablet RxNorm: 235581 1 Tablet(s) PO TID as needed Dizziness 07/22/2018 No Stop Date Active meclizine 25 mg tablet RxNorm: 441933 1 Tablet(s) PO TID as needed Dizziness 07/19/2018 07/21/2018 In active furosemide 40 mg tablet RxNorm: 738496 1 Tablet(s) BID take 1.5 tabs twice a da y x 7 days then 1 pill daily thereafter 07/11/2018 02/05/2019 Active Coumadin 4 mg tablet RxNorm: 712825 1 Tablet(s) PO daily except 1.5 pills on WEDNESDAY AND Wednesday07/11/2018 08/15/2018 Inactive this is an update to her RX - she will let you know when she needs refill warfarin 5 mg tablet RxNorm: 544313 Tablet(s) TAKE ONE TABLET BY MOUTH DAILY EXCEPT / TAKE 4 MG 04/06/2018 08/22/2019 Active diltiazem 60 mg tablet RxNorm: 713455 1/2 Tablet(s) PO QID 03/24/2018 No Stop Date Active levothyroxine 125 mc g tablet RxNorm: 731627 TAKE ONE TABLET BY [facility] DAILY ON WEDNESDAY, WED, AND WEDNESDAY, AND 1/2 TABLET ON , , WED AND WEDNESDAY. TAKE ON AN EMPTY STOMACH 02/02/2018 07/31/2018 Inactive Coumadin 4 mg tablet RxNorm: 755399 TAKE ONE TABLET BY MOUTH DAILY ON AND Wednesday10/14/2017 07/10/2018 Inactive nystatin 100,000 uni t/gram topical cream RxNorm: 148125 1 Application TOP TID 08/17/2017 No Stop Date Active Voltaren 1 % topical gel RxNorm: 273091 2 Gram(s) TOP TID luiz ly to shoulder and neck 08/17/2017 No Stop Date Active triamcinolone aceton sreekanth 0.025 % topical cream RxNorm: 5004226 1 Application TOP BI D 08/17/2017 08/15/2018 In active levothyroxine 125 mc g tablet RxNorm: 203495 1 Tablet(s) UD 1 pill wed/wed/wed, 1/2 pill //sat/sun take ON AN EMPTY STOMACH 08/05/2017 02/01/2018 Inactive Coumadin 4 mg tablet RxNorm: 963470 1 Tablet(s) PO Wed/07/29/2017 10/13/2017 Inactive warfarin 5 mg tablet RxNorm: 326427 TAKE 1 AND 1/2 TABLETS BY MOUTH ON AND WEDNESDAY. TAKE ONLY 1 TABLET BY MOUTH ALL OTHER DAYS OF THE WEEK 07/12/2017 04/05/2018 In active furosemide 40 mg tablet RxNorm: 961069 Tablet(s) BID TAKE ONE TABLET BY MOUTH D AILY 06/15/2017 07/10/2018 Inactive Voltaren 1 % topical gel RxNorm: 844889 2 Gram(s) TOP TID luiz ly to shoulder and neck 06/15/2017 08/16/2017 Inactive Keflex 500 mg capsule RxNorm: 871781 1 Capsule(s) PO TID 04/01/2017 04/07/2017 Inactive furosemide 40 mg tablet RxNorm: 246457 TAKE ONE TABLET BY MOUTH DAILY 03/18/2017 06/14/2017 In active Claritin-D 12 Hour 5 mg-120 mg tablet,extended release RxNorm: 5997501 1 Tablet(s) PO BID 03/16/2017 05/14/2017 Inactive Lipitor 20 mg tablet RxNorm: 994625 1 Tablet(s) PO daily 02/09/2017 03/10/2017 Inactive lisinopril 2.5 mg ta blet RxNorm: 154387 1 Tablet(s) PO daily 02/09/2017 03/10/2017 Inactive Nasonex 50 mcg/actua tion [place] RxNorm: 1295060 1 [place] NASAL BID 02/09/2017 09/06/2017 Inactive levothyroxine 125 mc g tablet RxNorm: 736069 1 Tablet(s) UD 1 pill wed/wed/wed, 1/2 pill //sat/sun take ON AN EMPTY STOMACH 02/09/2017 08/04/2017 Inactive fluorouracil 5 % top ical cream RxNorm: 121748 1 Application TOP BID 02/09/2017 02/18/2017 Inactive potassium chloride E R 20 mEq tablet,extended release RxNorm: 267250 Tablet(s) TAKE ONE TABLET BY MOUTH DAILY 02/08/2017 02/02/2018 Inactive warfarin 5 mg tablet RxNorm: 533840 TAKE 1 AND 1/2 TABLETS BY MOUTH ON AND WEDNESDAY. TAKE ONLY 1 TABLET BY MOUTH ALL OTHER DAYS OF THE WEEK 12/14/2016 05/30/2017 In active potassium chloride E R 20 mEq tablet,extended release RxNorm: 724418 TAKE ONE TABLET BY MOUTH DAILY 10/29/2016 01/26/2017 Inactive warfarin 5 mg tablet RxNorm: 673746 TAKE 1 AND 1/2 TABLETS BY MOUTH ON AND WEDNESDAY. TAKE ONLY 1 TABLET BY MOUTH ALL OTHER DAYS OF THE WEEK 10/27/2016 12/13/2016 In active nystatin 100,000 uni t/gram topical cream RxNorm: 630446 1 Application TOP TID 10/13/2016 08/16/2017 In active nitrofurantoin 50 mg capsule RxNorm: 257472 1 Capsule(s) PO BID 09/04/2016 09/03/2016 Inactive nitrofurantoin macro crystal 50 mg capsule RxNorm: 268564 1 Capsule(s) PO BID 09/04/2016 09/10/2016 In active Cipro 500 mg tablet RxNorm: 055239 1 Tablet(s) PO BID 08/26/2016 10/12/2016 Inactive Zyrtec 10 mg tablet RxNorm: 1508183 1 Tablet(s) PO daily 07/31/2016 08/29/2016 Inactive prednisone 20 mg tablet RxNorm: 186804 2 Tablet(s) PO daily 07/31/2016 08/02/2016 Inactive Kenalog 40 mg/mL zohra pension for injection RxNorm: 0083557 Milliliter(s) Inj 07/22/2016 07/22/2016 In active ceftriaxone 500 mg s olution for injection RxNorm: 1730134 Inj 07/22/2016 07/22/2016 Inactive Flonase Allergy Reli ef 50 mcg/actuation nasal spray,suspension RxNorm: 0563497 1 [place] NASAL BID 07/22/2016 08/20/2016 Inactive azithromycin 250 mg tablet RxNorm: 168570 2 Tablet(s) PO on day #1, then 1 pill daily x 4 days 07/22/2016 10/12/2016 Inactive warfarin 5 mg tablet RxNorm: 869199 TAKE 1 AND 1/2 TABLETS BY MOUTH ON AND WEDNESDAY. TAKE ONLY 1 TABLET BY MOUTH ALL OTHER DAYS OF THE WEEK 07/09/2016 09/30/2016 In active levothyroxine 125 mc g tablet RxNorm: 156555 Tablet(s) TAKE ONE TA BLET BY MOUTH DAILY ON AN EMPTY STOMACH 06/23/2016 02/08/2017 Inactive levothyroxine 125 mc g tablet RxNorm: 168902 TAKE ONE TABLET BY [facility] DAILY ON AN EMPTY STOMACH 06/23/2016 06/22/2016 Inactive levothyroxine 125 mc g tablet RxNorm: 151327 TAKE ONE TABLET BY MO [facility] DAILY ON AN EMPTY STOMACH 06/23/2016 08/04/2017 Inactive cetirizine 10 mg tablet RxNorm: 7006301 TAKE ONE TABLET BY MOUTH DAILY 06/16/2016 10/13/2016 In active furosemide 40 mg tablet RxNorm: 081623 Tablet(s) TAKE ONE TABLET BY MOUTH DAILY 06/05/2016 12/01/2016 In active cetirizine 10 mg tablet RxNorm: 9099472 1 Tablet(s) PO daily 05/01/2016 05/30/2016 Inactive Levaquin 250 mg tablet RxNorm: 716903 Tablet(s) PO 2 pills day one and 1 pill day 2-7 04/06/2016 07/21/2016 Inactive warfarin 5 mg tablet RxNorm: 614219 Tablet(s) 1/2 TABLETS BY MOUTH ON AND WEDNESDAY. TAKE ONLY 1 TABLET BY MOUTH ALL OTHER DAYS OF THE WEEK 03/18/2016 07/07/2016 In active triamcinolone aceton sreekanth 0.025 % topical cream RxNorm: 3881501 1 Application TOP BI D 03/10/2016 08/16/2017 In active potassium chloride E R 20 mEq tablet,extended release RxNorm: 912246 1 Tablet(s) PO daily 03/04/2016 06/01/2016 Inactive Levaquin 250 mg tablet RxNorm: 777634 Tablet(s) PO 2 pills day one and 1 pill day 2-7 03/04/2016 04/05/2016 Inactive Levaquin 250 mg tablet RxNorm: 381960 Tablet(s) PO 2 pills day one and 1 pill day 2-7 03/03/2016 03/03/2016 Inactive potassium chloride E R 20 mEq tablet,extended release RxNorm: 298989 1 Tablet(s) PO daily 03/03/2016 03/03/2016 Inactive Cipro 500 mg tablet RxNorm: 921043 1 Tablet(s) PO BID 02/20/2016 07/21/2016 Inactive Cipro 500 mg tablet RxNorm: 316143 1 Tablet(s) PO BID 02/20/2016 02/19/2016 Inactive furosemide 40 mg tablet RxNorm: 831423 TAKE ONE TABLET BY MOUTH DAILY 01/27/2016 01/26/2016 In active warfarin 5 mg tablet RxNorm: 648231 TAKE 1 AND 1/2 TABLETS BY MOUTH ON AND WEDNESDAY. TAKE ONLY 1 TABLET BY MOUTH ALL OTHER DAYS OF THE WEEK 01/27/2016 01/26/2016 In active furosemide 40 mg tablet RxNorm: 065547 TAKE ONE TABLET BY MOUTH DAILY 01/27/2016 06/04/2016 In active warfarin 5 mg tablet RxNorm: 409195 TAKE 1 AND 1/2 TABLETS BY MOUTH ON AND WEDNESDAY. TAKE ONLY 1 TABLET BY MOUTH ALL OTHER DAYS OF THE WEEK 01/27/2016 03/17/2016 In active potassium chloride E R 20 mEq tablet,extended release RxNorm: 638438 1 Tablet(s) PO daily 11/20/2015 03/02/2016 Inactive furosemide 40 mg tablet RxNorm: 927779 TAKE ONE TABLET BY MOUTH DAILY 11/12/2015 01/26/2016 In active Zovirax 5 % topical cream RxNorm: 907831 TOP QID 0 09/24/2015 09/23/2015 Inactive Zovirax 5 % topical cream RxNorm: 602725 TOP QID 0 09/24/2015 11/19/2015 Inactive nystatin 100,000 uni t/gram topical cream RxNorm: 238392 1 Application TOP TID 09/17/2015 10/12/2016 In active warfarin 5 mg tablet RxNorm: 407947 TAKE 1 AND 1/2 TABLETS BY MOUTH ON AND WEDNESDAY. TAKE ONLY 1 TABLET BY MOUTH ALL OTHER DAYS OF THE WEEK 08/19/2015 01/05/2016 In active loratadine 10 mg tablet RxNorm: 206713 1 Tablet(s) PO daily 07/30/2015 07/23/2016 Inactive loratadine 10 mg tablet RxNorm: 041087 1 Tablet(s) PO daily 07/30/2015 07/29/2015 Inactive furosemide 40 mg tablet RxNorm: 726919 TAKE ONE TABLET BY MOUTH DAILY 06/24/2015 11/11/2015 In active levothyroxine 125 mc g tablet RxNorm: 033936 1 Tablet(s) PO daily 05/31/2015 05/24/2016 Inactive furosemide 40 mg tablet RxNorm: 909331 1 Tablet(s) PO daily 04/05/2015 06/23/2015 Inactive warfarin 5 mg tablet RxNorm: 343655 TAKE 1 AND 1/2 TABLETS BY MOUTH ON AND WEDNESDAY. TAKE ONLY 1 TABLET BY MOUTH ALL OTHER DAYS OF THE WEEK 02/12/2015 07/29/2015 In active Flonase Allergy Reli ef 50 mcg/actuation nasal spray,suspension RxNorm: 2 [place] NASAL daily 02/05/2015 03/06/2015 Inactive Kenalog 40 mg/mL zohra pension for injection RxNorm: 0563905 Milliliter(s) Inj 02/05/2015 02/05/2015 In active warfarin 5 mg tablet RxNorm: 085159 Take 7.5mg (1 1/2 tablets) Wednesday and and 1 Tablet(s) PO (5mg) all other days 01/11/2015 02/09/2015 Inactive levothyroxine 125 mc g tablet RxNorm: 597236 1 Tablet(s) PO every other day 01/01/2015 05/30/2015 In active alternate with 150 levothyroxine 150 mc g tablet RxNorm: 956140 1 Tablet(s) PO every other day 01/01/2015 05/30/2015 In active alternate with 125 loratadine 10 mg tablet RxNorm: 083080 Tablet(s) PO as needed No Start Date Active Fish Oil 1,000 mg ca psule RxNorm: 1 Capsule(s) PO TID No Start Date Active magnesium 250 mg tablet RxNorm: 1 Tablet(s) PO daily No Start Date Active Vitamin D3 2,000 uni t tablet RxNorm: 210431 2 Tablet(s) PO daily No Start Date Active Fosamax 35 mg tablet RxNorm: 037828 1 Tablet(s) PO QW No Start Date Active levothyroxine 125 mc g tablet RxNorm: 906526 1 Tablet(s) PO daily No Start Date 12/31/2014 Inactive levothyroxine 150 mc g tablet RxNorm: 942780 1 Tablet(s) PO daily No Start Date 12/31/2014 Inactive diltiazem 60 mg tablet RxNorm: 613972 1 Tablet(s) PO QID No Start Date 03/23/2018 Inactive meclizine 25 mg tablet RxNorm: 705077 1 Tablet(s) PO TID as needed Dizziness No Start Date 07/18/2018 Inactive furosemide 40 mg tablet RxNorm: 882799 1 Tablet(s) PO daily No Start Date 04/04/2015 Inactive potassium chloride RxNorm: miscellaneous No Start Date 11/19/2015 Inactive Vitamin D2 oral RxNorm: 4018 oral No Start Date 05/31/2015 Inactive warfarin 5 mg tablet RxNorm: 490158 1 Tablet(s) PO daily No Start Date 01/10/2015 Inactive Coumadin 4 mg tablet RxNorm: 634797 1 Tablet(s) PO Wed/ No Start Date 07/28/2017 Inactive Medication Administered Medication Codes Instruc tions Start Date Status ceftriaxone 500 mg solution for injection RxNorm: 3280914 10/27/2018 No longer A ctive ceftriaxone 500 mg solution for injection RxNorm: 3452379 07/22/2016 No longer A ctive Kenalog 40 mg/mL suspension for injection RxNorm: 1761947 Milliliter 07/22/2016 No longer Active Kenalog 40 mg/mL suspension for injection RxNorm: 6800901 Milliliter 02/05/2015 No longer Active Immunizations Vaccine [...] not specified ICD-10: N39.0 ICD-9: 599.0 12/05/2018 intermediate (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 ICD-10: Z79.01 ICD-9: [...] 244.9 11/20/2014 ACTINIC KERATOSIS ICD-9: 702.0 11/20/2014 intermediate current us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 therapy ICD-9: V58.61 [...] Code Item Item Code Result Date Pt Mho2194 PT 22.3 seconds 11/23/2018 Pt Xjz7078 INR 2.0 11/23/2018 Pt Lvi9713 Low Intensity - 1.5-2.0 11/23/2018 Pt Eba3456 Mod intensity - 2.0-3.0 11/23/2018 Pt Zxb8281 Hi intensity - 3.0-4.0 11/23/2018 Pt Ssd5049 PT 18.0 seconds 11/14/2018 Pt Xgc4115 INR 1.5 11/14/2018 Pt Ezu4723 Low Intensity - 1.5-2.0 11/14/2018 Pt Ycv3739 Mod intensity - 2.0-3.0 11/14/2018 Pt Bjx0393 Hi intensity - 3.0-4.0 11/14/2018 Pt Cto2626 PT 17.3 seconds 11/03/2018 Pt Ikj8652 INR 1.5 11/03/2018 Pt Lte4638 Low Intensity - 1.5-2.0 11/03/2018 Pt Tmw6140 Mod intensity - 2.0-3.0 11/03/2018 Pt Ydn4279 Hi intensity - 3.0-4.0 11/03/2018 Urine Culture Ucult Comp lete >100,000 col/ml aerobic grow th sent to ref lab 10/28/2018 Pt Kxl1478 PT 24.4 seconds 10/24/2018 Pt Rpt4219 INR 2.2 10/24/2018 Pt Htf2865 Low Intensity - 1.5-2.0 10/24/2018 Pt Wxs4985 Mod intensity - 2.0-3.0 10/24/2018 Pt Gft8105 Hi intensity - 3.0-4.0 10/24/2018 Lipid Ord30 CHOL 143 mg/dL 10/24/2018 Lipid Ord30 HDL 52.0 mg/dl 10/24/2018 Lipid Ord30 TRIG 78 mg/dL 10/24/2018 Lipid Ord30 LDL 75 mg/dL 10/24/2018 Lipid Ord30 C/HDL 2.8 Ratio 10/24/2018 Comp Metabolic Rcb267 NA 142 mEq/L 10/24/2018 Comp Metabolic Top784 K 4.6 mEq/L 10/24/2018 Comp Metabolic Jag813 CL 107 mEq/L 10/24/2018 Comp Metabolic Qne195 CO2 27.0 mEq/L 10/24/2018 Comp Metabolic Ixz593 AN ION GAP 13 10/24/2018 Comp Metabolic Dgt243 GL UCOSE 82 mg/dL 10/24/2018 Comp Metabolic Blo688 Cr eat 1.1 mg/dL 10/24/2018 Comp Metabolic Wqn724 eG FR 54 ml/min/1.73m2 10/24 Comp Metabolic Xxv095 BUN 23 mg/dL 10/24/2018 Comp Metabolic Jqy532 B/ C Ratio 21.9 Ratio 10/24/2018 Comp Metabolic Mrj178 CA LCIUM 9.0 mg/dL 10/24/2018 Comp Metabolic Oud162 AL K PHOS 64 U/L 10/24/2018 Comp Metabolic Iee404 T(SGOT) 18 U/L 10/24/2018 Comp Metabolic Xwp164 AL T(SGPT) 14 U/L 10/24/2018 Comp Metabolic Yet001 BI LI T 0.5 mg/dL 10/24/2018 Comp Metabolic Bnt737 AL BUMIN 3.0 g/dL 10/24/2018 Comp Metabolic Iyf000 TP RO 5.2 g/dL 10/24/2018 Comp Metabolic Sjc098 GL OB 2.2 g/dL 10/24/2018 Comp Metabolic Xsq929 A/ G Ratio 1.4 Ratio 10/24/2018 Comp Metabolic Ags102 Os mo 286 mOsmo 10/24/2018 Pt Lvp2059 PT 23.8 seconds 09/29/2018 Pt Ijm3739 INR 2.2 09/29/2018 Pt Jpn0843 Low Intensity - 1.5-2.0 09/29/2018 Pt Dzj0150 Mod intensity - 2.0-3.0 09/29/2018 Pt Obv5954 Hi intensity - 3.0-4.0 09/29/2018 Pt Ads0612 PT 19.6 seconds 09/19/2018 Pt Hix4774 INR 1.7 09/19/2018 Pt Ect0124 Low Intensity - 1.5-2.0 09/19/2018 Pt Zxi1665 Mod intensity - 2.0-3.0 09/19/2018 Pt Nui6086 Hi intensity - 3.0-4.0 09/19/2018 Pt Fgs3413 PT 16.8 seconds 09/12/2018 Pt Dqf8977 INR 1.4 09/12/2018 Pt Wfu5399 Low Intensity - 1.5-2.0 09/12/2018 Pt Ywy7042 Mod intensity - 2.0-3.0 09/12/2018 Pt Swo7272 Hi intensity - 3.0-4.0 09/12/2018 Pt Qje1374 PT 13.1 seconds 09/07/2018 Pt Ykq1986 INR 1.0 09/07/2018 Pt Kbc8708 Low Intensity - 1.5-2.0 09/07/2018 Pt Bax5551 Mod intensity - 2.0-3.0 09/07/2018 Pt Utv4167 Hi intensity - 3.0-4.0 09/07/2018 Pt Xcm4610 PT 24.1 seconds 08/23/2018 Pt Nkr6995 INR 2.2 08/23/2018 Pt Plr6380 Low Intensity - 1.5-2.0 08/23/2018 Pt Mxt8109 Mod intensity - 2.0-3.0 08/23/2018 Pt Pff2372 Hi intensity - 3.0-4.0 08/23/2018 Pt Opp5820 PT 30.9 seconds 08/16/2018 Pt Sse9045 INR 3.0 08/16/2018 Pt Niq8412 Low Intensity - 1.5-2.0 08/16/2018 Pt Lix3809 Mod intensity - 2.0-3.0 08/16/2018 Pt Oej6300 Hi intensity - 3.0-4.0 08/16/2018 Pt Xwi0195 PT 29.5 seconds 08/01/2018 Pt Ysx4061 INR 2.8 08/01/2018 Pt Ykg3268 Low Intensity - 1.5-2.0 08/01/2018 Pt Ofb8726 Mod intensity - 2.0-3.0 08/01/2018 Pt Clv8390 Hi intensity - 3.0-4.0 08/01/2018 Pt Kxx4066 PT 24.2 seconds 07/25/2018 Pt Qvd5487 INR 2.2 07/25/2018 Pt Out3871 Low Intensity - 1.5-2.0 07/25/2018 Pt Xwt3695 Mod intensity - 2.0-3.0 07/25/2018 Pt Etn1533 Hi intensity - 3.0-4.0 07/25/2018 Pt Jma2962 PT 38.6 seconds 07/19/2018 Pt Rxk8331 INR 4.0 07/19/2018 Pt Ofg0691 Low Intensity - 1.5-2.0 07/19/2018 Pt Bcr7288 Mod intensity - 2.0-3.0 07/19/2018 Pt Aga3588 Hi intensity - 3.0-4.0 07/19/2018 Pt Cox9038 PT 25.7 seconds 07/11/2018 Pt Swo3219 INR 2.4 07/11/2018 Pt Soo2186 Low Intensity - 1.5-2.0 07/11/2018 Pt Qop8089 Mod intensity - 2.0-3.0 07/11/2018 Pt Kbs2099 Hi intensity - 3.0-4.0 07/11/2018 Pt Bsk6473 PT 18.5 seconds 07/08/2018 Pt Ekp4264 INR 1.6 07/08/2018 Pt Kvg7867 Low Intensity - 1.5-2.0 07/08/2018 Pt Ojg0327 Mod intensity - 2.0-3.0 07/08/2018 Pt Reo9931 Hi intensity - 3.0-4.0 07/08/2018 Pt Hly9906 PT 27.3 seconds 06/29/2018 Pt Xfw8257 INR 2.6 06/29/2018 Pt Hni3898 Low Intensity - 1.5-2.0 06/29/2018 Pt Org4097 Mod intensity - 2.0-3.0 06/29/2018 Pt Tkk9993 Hi intensity - 3.0-4.0 06/29/2018 Pt Nko0148 PT 24.0 seconds 05/26/2018 Pt Ppl1722 INR 2.2 05/26/2018 Pt Zlr9136 Low Intensity - 1.5-2.0 05/26/2018 Pt Uoa1190 Mod intensity - 2.0-3.0 05/26/2018 Pt Xyl5276 Hi intensity - 3.0-4.0 05/26/2018 Tsh Ord6 [...] 29.6 pg 03/25/2018 Cbc With Differential Ord2 [place]% 9.5 % 03/25/2018 Cbc With Differential Ord2 [...] 2.19 K/ul 03/25/2018 Cbc With Differential Ord2 [place] ABS# 0.8 K/ul 03/25/2018 Cbc With Differential Ord2 Eos ABS# 0.3 K/ul 03/25/2018 Cbc With Differential Ord2 Baso ABS# 0.0 K/ul 03/25/2018 Lipid Ord30 CHOL 156 mg/dL 03/25/2018 Lipid Ord30 HDL 52.0 mg/dl 03/25/2018 Lipid Ord30 TRIG 98 mg/dL 03/25/2018 Lipid Ord30 LDL 84 mg/dL 03/25/2018 Lipid Ord30 C/HDL 3.0 Ratio 03/25/2018 Free T4 Hnw526 FREE T4 1.73 ng/dL 03/25/2018 Comp Metabolic Jvu038 NA 143 mEq/L 03/25/2018 Comp Metabolic Phb649 K 4.6 mEq/L 03/25/2018 Comp Metabolic Drf895 CL 108 mEq/L 03/25/2018 Comp Metabolic Hvp272 CO2 26.0 mEq/L 03/25/2018 Comp Metabolic Cgo160 AN ION GAP 14 03/25/2018 Comp Metabolic Nfi231 GL UCOSE 87 mg/dL 03/25/2018 Comp Metabolic Yjk847 Cr eat 1.2 mg/dL 03/25/2018 Comp Metabolic Ukg518 eG FR 48 ml/min/1.73m2 03/25 Comp Metabolic Nup952 BUN 18 mg/dL 03/25/2018 Comp Metabolic Ikk087 B/ C Ratio 15.5 Ratio 03/25/2018 Comp Metabolic Zfe827 CA LCIUM 9.1 mg/dL 03/25/2018 Comp Metabolic Iyf803 AL K PHOS 58 U/L 03/25/2018 Comp Metabolic Eou377 T(SGOT) 21 U/L 03/25/2018 Comp Metabolic Niz688 AL T(SGPT) 13 U/L 03/25/2018 Comp Metabolic Oyo257 BI LI T 0.7 mg/dL 03/25/2018 Comp Metabolic Snz267 AL BUMIN 3.2 g/dL 03/25/2018 Comp Metabolic Pzd193 TP RO 5.5 g/dL 03/25/2018 Comp Metabolic Bzp697 GL OB 2.3 g/dL 03/25/2018 Comp Metabolic Zrj560 A/ G Ratio 1.4 Ratio 03/25/2018 Comp Metabolic Wxc544 Os mo 286 mOsmo 03/25/2018 Pt Jlk6020 PT 29.0 seconds 03/22/2018 Pt Tzi8781 INR 2.7 03/22/2018 Pt Ogd9548 Low Intensity - 1.5-2.0 03/22/2018 Pt Prs8221 Mod intensity - 2.0-3.0 03/22/2018 Pt Ghh2533 Hi intensity - 3.0-4.0 03/22/2018 Pt Ovt3321 PT 27.1 seconds 02/25/2018 Pt Xos8796 INR 2.5 02/25/2018 Pt Aax3973 Low Intensity - 1.5-2.0 02/25/2018 Pt Aqj0054 Mod intensity - 2.0-3.0 02/25/2018 Pt Szi1979 Hi intensity - 3.0-4.0 02/25/2018 Pt Xke2026 PT 26.1 seconds 01/26/2018 Pt Jsi2236 INR 2.4 01/26/2018 Pt Wvc4514 Low Intensity - 1.5-2.0 01/26/2018 Pt Cmr2308 Mod intensity - 2.0-3.0 01/26/2018 Pt Myl0764 Hi intensity - 3.0-4.0 01/26/2018 Pt Reu5783 PT 22.8 seconds 12/24/2017 Pt Clg9947 INR 2.0 12/24/2017 Pt Ssq6743 Low Intensity - 1.5-2.0 12/24/2017 Pt Nhj2123 Mod intensity - 2.0-3.0 12/24/2017 Pt Smy9502 Hi intensity - 3.0-4.0 12/24/2017 Pt Utj0257 PT 29.4 seconds 11/18/2017 Pt Zvt0463 INR 2.8 11/18/2017 Pt Zzh6658 Low Intensity - 1.5-2.0 11/18/2017 Pt Vgh4452 Mod intensity - 2.0-3.0 11/18/2017 Pt Pld2797 Hi intensity - 3.0-4.0 11/18/2017 Pt Skn4547 PT 26.6 seconds 09/13/2017 Pt Krb7583 INR 2.4 09/13/2017 Pt Psg5703 Low Intensity - 1.5-2.0 09/13/2017 Pt Akl1460 Mod intensity - 2.0-3.0 09/13/2017 Pt Zgm7801 Hi intensity - 3.0-4.0 09/13/2017 Pt Glp6684 PT 28.2 seconds 08/10/2017 Pt Ubn3062 INR 2.6 08/10/2017 Pt Iot9907 Low Intensity - 1.5-2.0 08/10/2017 Pt Zbx5554 Mod intensity - 2.0-3.0 08/10/2017 Pt Vjq9534 Hi intensity - 3.0-4.0 08/10/2017 Pt Ddl2631 PT 33.9 seconds 07/27/2017 Pt Nfz8968 INR 3.3 07/27/2017 Pt Ius5725 Low Intensity - 1.5-2.0 07/27/2017 Pt Wiu4167 Mod intensity - 2.0-3.0 07/27/2017 Pt Kiv4281 Hi intensity - 3.0-4.0 07/27/2017 Pt Vre3592 PT 29.1 seconds 06/29/2017 Pt Wey5985 INR 2.7 06/29/2017 Pt Jnz5154 Low Intensity - 1.5-2.0 06/29/2017 Pt Ppa7820 Mod intensity - 2.0-3.0 06/29/2017 Pt Rmk4919 Hi intensity - 3.0-4.0 06/29/2017 Pt Vmk1606 PT 30.3 seconds 06/11/2017 Pt Hvi8368 INR 2.9 06/11/2017 Pt Awg9384 Low Intensity - 1.5-2.0 06/11/2017 Pt Vyn8340 Mod intensity - 2.0-3.0 06/11/2017 Pt Obv6598 Hi intensity - 3.0-4.0 06/11/2017 Pt Zyx3240 PT 39.1 seconds 06/07/2017 Pt Dxv5449 INR 3.9 06/07/2017 Pt Tip5392 Low Intensity - 1.5-2.0 06/07/2017 Pt Xla5950 Mod intensity - 2.0-3.0 06/07/2017 Pt Mbg2184 Hi intensity - 3.0-4.0 06/07/2017 Pt Ssv5473 PT 34.2 seconds 05/26/2017 Pt Sma7258 INR 3.3 05/26/2017 Pt Kqr2957 Low Intensity - 1.5-2.0 05/26/2017 Pt Naw6663 Mod intensity - 2.0-3.0 05/26/2017 Pt Iwe6628 Hi intensity - 3.0-4.0 05/26/2017 Comp Metabolic Ifo854 NA 138 mEq/L 04/23/2017 Comp Metabolic Ksf408 K 4.2 mEq/L 04/23/2017 Comp Metabolic Oag605 CL 101 mEq/L 04/23/2017 Comp Metabolic Uki852 CO2 28.0 mEq/L 04/23/2017 Comp Metabolic Msb368 AN ION GAP 13 04/23/2017 Comp Metabolic Qsa878 GL UCOSE 89 mg/dL 04/23/2017 Comp Metabolic Hmj081 Cr eat 1.1 mg/dL 04/23/2017 Comp Metabolic Mwo846 eG FR 51 ml/min/1.73m2 04/23 Comp Metabolic Yil315 BUN 26 mg/dL 04/23/2017 Comp Metabolic Lwy235 B/ C Ratio 23.9 Ratio 04/23/2017 Comp Metabolic Byt237 CA LCIUM 9.4 mg/dL 04/23/2017 Comp Metabolic Lgd397 AL K PHOS 95 U/L 04/23/2017 Comp Metabolic Pbx850 T(SGOT) 18 U/L 04/23/2017 Comp Metabolic Aqs332 AL T(SGPT) 17 U/L 04/23/2017 Comp Metabolic Eqy070 BI LI T 0.7 mg/dL 04/23/2017 Comp Metabolic Cgm131 AL BUMIN 3.2 g/dL 04/23/2017 Comp Metabolic Vqj009 TP RO 5.6 g/dL 04/23/2017 Comp Metabolic Qhc856 GL OB 2.4 g/dL 04/23/2017 Comp Metabolic Ulv478 A/ G Ratio 1.3 Ratio 04/23/2017 Comp Metabolic Jgo203 Os mo 280 mOsmo 04/23/2017 Pt Tmk3795 PT 28.6 seconds 04/23/2017 Pt Sqa8789 INR 2.7 04/23/2017 Pt Doc1940 Low Intensity - 1.5-2.0 04/23/2017 Pt Gik3029 Mod intensity - 2.0-3.0 04/23/2017 Pt Ufw5909 Hi intensity - 3.0-4.0 04/23/2017 Pt Qab7512 PT 24.4 seconds 03/16/2017 Pt Fyl5050 INR 2.2 03/16/2017 Pt Ktc0377 Low Intensity - 1.5-2.0 03/16/2017 Pt Dte6544 Mod intensity - 2.0-3.0 03/16/2017 Pt Jnt8763 Hi intensity - 3.0-4.0 03/16/2017 Pt Jty3826 PT 28.2 seconds 02/24/2017 Pt Wae4204 INR 2.6 02/24/2017 Pt Mxc5778 Low Intensity - 1.5-2.0 02/24/2017 Pt Xdj6300 Mod intensity - 2.0-3.0 02/24/2017 Pt Sbs4571 Hi intensity - 3.0-4.0 02/24/2017 Pt Yiv0432 PT 26.8 seconds 02/08/2017 Pt Ssz4690 INR 2.5 02/08/2017 Pt Rul0672 Low Intensity - 1.5-2.0 02/08/2017 Pt Eqy9814 Mod intensity - 2.0-3.0 02/08/2017 Pt Dyh5645 Hi intensity - 3.0-4.0 02/08/2017 Lipid Ord30 CHOL 150 mg/dL 01/25/2017 Lipid Ord30 HDL 55.0 mg/dl 01/25/2017 Lipid Ord30 TRIG 66 mg/dL 01/25/2017 Lipid Ord30 LDL 82 mg/dL 01/25/2017 Lipid Ord30 C/HDL 2.7 Ratio 01/25/2017 Pt Wga5722 PT 29.9 seconds 01/25/2017 Pt Mmc9892 INR 2.8 01/25/2017 Pt Xya7707 Low Intensity - 1.5-2.0 01/25/2017 Pt Csp2861 Mod intensity - 2.0-3.0 01/25/2017 Pt Rbf1930 Hi intensity - 3.0-4.0 01/25/2017 Comp Metabolic Jma049 NA 143 mEq/L 01/25/2017 Comp Metabolic Wsj786 K 3.9 mEq/L 01/25/2017 Comp Metabolic Hrg726 CL 108 mEq/L 01/25/2017 Comp Metabolic Hzu211 CO2 23.0 mEq/L 01/25/2017 Comp Metabolic Fbf921 AN ION GAP 16 01/25/2017 Comp Metabolic Zxu109 GL UCOSE 80 mg/dL 01/25/2017 Comp Metabolic Niu419 Cr eat 1.0 mg/dL 01/25/2017 Comp Metabolic Tgb550 eG FR 57 ml/min/1.73m2 01/25 Comp Metabolic Zom914 BUN 25 mg/dL 01/25/2017 Comp Metabolic Vgj640 B/ C Ratio 25.0 Ratio 01/25/2017 Comp Metabolic Gbr648 CA LCIUM 8.5 mg/dL 01/25/2017 Comp Metabolic Drj967 AL K PHOS 81 U/L 01/25/2017 Comp Metabolic Cyo523 T(SGOT) 19 U/L 01/25/2017 Comp Metabolic Rqd755 AL T(SGPT) 23 U/L 01/25/2017 Comp Metabolic Ucq847 BI LI T 0.5 mg/dL 01/25/2017 Comp Metabolic Oic317 AL BUMIN 2.9 g/dL 01/25/2017 Comp Metabolic Qgi879 TP RO 5.1 g/dL 01/25/2017 Comp Metabolic Vbv660 GL OB 2.2 g/dL 01/25/2017 Comp Metabolic Rgu240 A/ G Ratio 1.3 Ratio 01/25/2017 Comp Metabolic Hqj757 Os mo 288 mOsmo 01/25/2017 Cbc With [...] 30.7 pg 01/25/2017 Cbc With Differential Ord2 Carroll% 8.2 % 01/25/2017 Cbc With Differential Ord2 [...] 3.10 K/ul 01/25/2017 Cbc With Differential Ord2 [place] ABS# 0.8 K/ul 01/25/2017 Cbc With Differential Ord2 Eos ABS# 0.4 K/ul 01/25/2017 Cbc With Differential Ord2 Baso ABS# 0.1 K/ul 01/25/2017 Free T4 Xsl138 FREE T4 2.09 ng/dL 01/25/2017 Tsh Ord6 hTSH II 0.46 uIU/mL 01/25/2017 Pt Vdi0337 PT 26.1 seconds 11/26/2016 Pt Eyq4099 INR 2.6 11/26/2016 Pt Xgr8234 Low Intensity - 1.5-2.0 11/26/2016 Pt Szp9593 Mod intensity - 2.0-3.0 11/26/2016 Pt Olo8359 Hi intensity - 3.0-4.0 11/26/2016 Pt Wfn9729 PT 26.2 seconds 10/29/2016 Pt Vnx3857 INR 2.6 10/29/2016 Pt Qia7414 Low Intensity - 1.5-2.0 10/29/2016 Pt Zcu5379 Mod intensity - 2.0-3.0 10/29/2016 Pt Ntk0111 Hi intensity - 3.0-4.0 10/29/2016 Pt Hse0650 PT 20.8 seconds 10/13/2016 Pt Kri7871 INR 1.9 10/13/2016 Pt Mvl3395 Low Intensity - 1.5-2.0 10/13/2016 Pt Zdd0772 Mod intensity - 2.0-3.0 10/13/2016 Pt Wng2969 Hi intensity - 3.0-4.0 10/13/2016 Pt Rom0859 PT 26.5 seconds 10/01/2016 Pt Dhj6465 INR 2.6 10/01/2016 Pt Ffh1166 Low Intensity - 1.5-2.0 10/01/2016 Pt Ebu9039 Mod intensity - 2.0-3.0 10/01/2016 Pt Usd8282 Hi intensity - 3.0-4.0 10/01/2016 Pt Mpj5680 PT 24.6 seconds 09/14/2016 Pt Wii5973 INR 2.4 09/14/2016 Pt Uhc7665 Low Intensity - 1.5-2.0 09/14/2016 Pt Qkg8828 Mod intensity - 2.0-3.0 09/14/2016 Pt Psv0598 Hi intensity - 3.0-4.0 09/14/2016 Pt Rdo2249 PT 18.0 seconds 09/07/2016 Pt Btj3108 INR 1.6 09/07/2016 Pt Uih7936 Low Intensity - 1.5-2.0 09/07/2016 Pt Jiz6690 Mod intensity - 2.0-3.0 09/07/2016 Pt Pfg5559 Hi intensity - 3.0-4.0 09/07/2016 Pt Bdm5052 PT 23.7 seconds 08/12/2016 Pt Tui5756 INR 2.2 08/12/2016 Pt Mas4229 Low Intensity - 1.5-2.0 08/12/2016 Pt Hpm0267 Mod intensity - 2.0-3.0 08/12/2016 Pt Enm6102 Hi intensity - 3.0-4.0 08/12/2016 Pt Viu7234 PT 21.6 seconds 07/27/2016 Pt Xhi1683 INR 2.0 07/27/2016 Pt Fmj5347 Low Intensity - 1.5-2.0 07/27/2016 Pt Uvm9710 Mod intensity - 2.0-3.0 07/27/2016 Pt Azq0072 Hi intensity - 3.0-4.0 07/27/2016 Pt Ogh8199 PT 26.0 seconds 06/15/2016 Pt Rub7484 INR 2.5 06/15/2016 Pt Riy9033 Low Intensity - 1.5-2.0 06/15/2016 Pt Fzq6649 Mod intensity - 2.0-3.0 06/15/2016 Pt Qoi3360 Hi intensity - 3.0-4.0 06/15/2016 Pt Fkm4207 PT 18.8 seconds 06/01/2016 Pt Iai5516 INR 1.7 06/01/2016 Pt Bdm5427 Low Intensity - 1.5-2.0 06/01/2016 Pt Ynu1695 Mod intensity - 2.0-3.0 06/01/2016 Pt Amx4995 Hi intensity - 3.0-4.0 06/01/2016 Pt Apr8822 PT 20.8 seconds 05/12/2016 Pt Hbr9750 INR 1.9 05/12/2016 Pt Rxk8942 Low Intensity - 1.5-2.0 05/12/2016 Pt Zev7507 Mod intensity - 2.0-3.0 05/12/2016 Pt Ddr2287 Hi intensity - 3.0-4.0 05/12/2016 Pt Fbb2312 PT 24.5 seconds 04/10/2016 Pt Uhp2227 INR 2.4 04/10/2016 Pt Ghy4051 Low Intensity - 1.5-2.0 04/10/2016 Pt Lsv7937 Mod intensity - 2.0-3.0 04/10/2016 Pt Zat6438 Hi intensity - 3.0-4.0 04/10/2016 Pt Qqy4821 PT 26.4 seconds 03/10/2016 Pt Snu8470 INR 2.6 03/10/2016 Pt Vpr0426 Low Intensity - 1.5-2.0 03/10/2016 Pt Nys8883 Mod intensity - 2.0-3.0 03/10/2016 Pt Nje3238 Hi intensity - 3.0-4.0 03/10/2016 Pt Aqf2335 PT 24.9 seconds 03/06/2016 Pt Vzp3274 INR 2.4 03/06/2016 Pt Mip2561 Low Intensity - 1.5-2.0 03/06/2016 Pt Vkf4792 Mod intensity - 2.0-3.0 03/06/2016 Pt Uox0746 Hi intensity - 3.0-4.0 03/06/2016 Pt Nuc4596 PT 21.9 seconds 02/25/2016 Pt Wny1985 INR 2.0 02/25/2016 Pt Eij7408 Low Intensity - 1.5-2.0 02/25/2016 Pt Ncn6766 Mod intensity - 2.0-3.0 02/25/2016 Pt Mhc4733 Hi intensity - 3.0-4.0 02/25/2016 Pt Hdu9881 PT 21.8 seconds 02/21/2016 Pt Yzl1356 INR 2.0 02/21/2016 Pt Qrv9481 Low Intensity - 1.5-2.0 02/21/2016 Pt Dbg1841 Mod intensity - 2.0-3.0 02/21/2016 Pt Bep7787 Hi intensity - 3.0-4.0 02/21/2016 Culture Urine [id number] URI NE CULTURE SEE NOTES 02/20/2016 Culture Urine [id number] Con tinued Results 02/20/2016 Urine Culture Ucult [...] 29.2 pg 02/14/2016 Cbc With Differential Ord2 Carroll% 9.3 % 02/14/2016 Cbc With Differential Ord2 [...] 2.55 K/ul 02/14/2016 Cbc With Differential Ord2 [place] ABS# 0.8 K/ul 02/14/2016 Cbc With Differential Ord2 Eos ABS# 0.4 K/ul 02/14/2016 Cbc With Differential Ord2 Baso ABS# 0.1 K/ul 02/14/2016 Tsh Ord6 hTSH II 0.80 uIU/mL 02/14/2016 Pt Wav1357 PT 27.1 seconds 02/14/2016 Pt Vyi0872 INR 2.7 02/14/2016 Pt Otl2017 Low Intensity - 1.5-2.0 02/14/2016 Pt Frr8049 Mod intensity - 2.0-3.0 02/14/2016 Pt Stk4786 Hi intensity - 3.0-4.0 02/14/2016 Free T4 Kng572 FREE T4 1.87 ng/dL 02/14/2016 Comp Metabolic Iem093 NA 139 mEq/L 02/14/2016 Comp Metabolic Dir439 K 3.8 mEq/L 02/14/2016 Comp Metabolic Xfd520 CL 103 mEq/L 02/14/2016 Comp Metabolic Iqw688 CO2 27.0 mEq/L 02/14/2016 Comp Metabolic Bgv234 AN ION GAP 13 02/14/2016 Comp Metabolic Spe658 GL UCOSE 91 mg/dL 02/14/2016 Comp Metabolic Sgf910 Cr eat 1.0 mg/dL 02/14/2016 Comp Metabolic Xth191 eG FR 58 ml/min/1.73m2 02/13 Comp Metabolic Yaa373 BUN 16 mg/dL 02/14/2016 Comp Metabolic Aju369 B/ C Ratio 16.2 Ratio 02/14/2016 Comp Metabolic Jnd297 CA LCIUM 9.0 mg/dL 02/14/2016 Comp Metabolic Rmp736 AL K PHOS 88 U/L 02/14/2016 Comp Metabolic Mpe926 T(SGOT) 17 U/L 02/14/2016 Comp Metabolic Hpj762 AL T(SGPT) 12 U/L 02/14/2016 Comp Metabolic Lax874 BI LI T 0.6 mg/dL 02/14/2016 Comp Metabolic Lix869 AL BUMIN 3.2 g/dL 02/14/2016 Comp Metabolic Vrk077 TP RO 5.8 g/dL 02/14/2016 Comp Metabolic Baf246 GL OB 2.6 g/dL 02/14/2016 Comp Metabolic Jqr096 A/ G Ratio 1.3 Ratio 02/14/2016 Comp Metabolic Mbk629 Os mo 278 mOsmo 02/14/2016 Pt Opl3398 PT 34.6 seconds 02/06/2016 Pt Ase2886 INR 3.7 02/06/2016 Pt Dvz5519 Low Intensity - 1.5-2.0 02/06/2016 Pt Ekb2731 Mod intensity - 2.0-3.0 02/06/2016 Pt Oty9162 Hi intensity - 3.0-4.0 02/06/2016 Pt Tbu3807 PT 33.3 seconds 01/23/2016 Pt Pck0665 INR 3.5 01/23/2016 Pt Mmi2684 Low Intensity - 1.5-2.0 01/23/2016 Pt Qun2834 Mod intensity - 2.0-3.0 01/23/2016 Pt Kjm6580 Hi intensity - 3.0-4.0 01/23/2016 Pt Nva3603 PT 30.5 seconds 12/31/2015 Pt Fbf5509 INR 3.2 12/31/2015 Pt Jap7133 Low Intensity - 1.5-2.0 12/31/2015 Pt Buf2088 Mod intensity - 2.0-3.0 12/31/2015 Pt Uji9405 Hi intensity - 3.0-4.0 12/31/2015 Pt Tgx5990 PT 35.6 seconds 12/25/2015 Pt Ghd1990 INR 3.9 12/25/2015 Pt Owb3472 Low Intensity - 1.5-2.0 12/25/2015 Pt Qyr6411 Mod intensity - 2.0-3.0 12/25/2015 Pt Mrd4361 Hi intensity - 3.0-4.0 12/25/2015 Pt Ynb9454 PT 30.8 seconds 11/21/2015 Pt Ltb8914 INR 3.2 11/21/2015 Pt Qda3243 Low Intensity - 1.5-2.0 11/21/2015 Pt Fon2333 Mod intensity - 2.0-3.0 11/21/2015 Pt Jwv9586 Hi intensity - 3.0-4.0 11/21/2015 Uric Acid [...] 30.0 pg 11/20/2015 Cbc With Differential Ord2 Carroll% 8.1 % 11/20/2015 Cbc With Differential Ord2 [...] 2.51 K/ul 11/20/2015 Cbc With Differential Ord2 [place] ABS# 0.9 K/ul 11/20/2015 Cbc With Differential Ord2 Eos ABS# 0.3 K/ul 11/20/2015 Cbc With Differential Ord2 Baso ABS# 0.0 K/ul 11/20/2015 Comp Metabolic Kmg899 NA 137 mEq/L 10/22/2015 Comp Metabolic Mnn166 K 3.9 mEq/L 10/22/2015 Comp Metabolic Txv061 CL 100 mEq/L 10/22/2015 Comp Metabolic Gmw681 CO2 31.0 mEq/L 10/22/2015 Comp Metabolic Owl240 AN ION GAP 10 10/22/2015 Comp Metabolic Icz364 GL UCOSE 94 mg/dL 10/22/2015 Comp Metabolic Wfb765 Cr eat 1.0 mg/dL 10/22/2015 Comp Metabolic Djd407 eG FR 55 ml/min/1.73m2 10/21 Comp Metabolic Vsc564 BUN 19 mg/dL 10/22/2015 Comp Metabolic Cjx966 B/ C Ratio 18.3 Ratio 10/22/2015 Comp Metabolic Kdy261 CA LCIUM 8.8 mg/dL 10/22/2015 Comp Metabolic Rpx889 AL K PHOS 83 U/L 10/22/2015 Comp Metabolic Uzg992 T(SGOT) 15 U/L 10/22/2015 Comp Metabolic Mss421 AL T(SGPT) 13 U/L 10/22/2015 Comp Metabolic Uem271 BI LI T 0.9 mg/dL 10/22/2015 Comp Metabolic Pyc565 AL BUMIN 2.8 g/dL 10/22/2015 Comp Metabolic Zrg331 TP RO 5.4 g/dL 10/22/2015 Comp Metabolic Wpt419 GL OB 2.6 g/dL 10/22/2015 Comp Metabolic Mjn351 A/ G Ratio 1.1 Ratio 10/22/2015 Comp Metabolic Dzi200 Os mo 276 mOsmo 10/22/2015 Bili D Ord93 BILI D 0.1 mg/dL 10/22/2015 Bili D Ord93 BILI I 0.8 mg/dL 10/22/2015 Pt Fsy4571 PT 22.8 seconds 10/22/2015 Pt Ovd0603 INR 2.1 10/22/2015 Pt Vre3635 Low Intensity - 1.5-2.0 10/22/2015 Pt Vbn6897 Mod intensity - 2.0-3.0 10/22/2015 Pt Hmk5316 Hi intensity - 3.0-4.0 10/22/2015 Pt Ytg3637 PT 28.0 seconds 09/16/2015 Pt Szu0661 INR 2.7 09/16/2015 Pt Oil8020 Low Intensity - 1.5-2.0 09/16/2015 Pt Qop1674 Mod intensity - 2.0-3.0 09/16/2015 Pt Epr9081 Hi intensity - 3.0-4.0 09/16/2015 Tsh Ord6 hTSH II 1.40 uIU/mL 09/16/2015 Free T4 Xtg976 FREE T4 1.73 ng/dL 09/16/2015 Lipid Ord30 CHOL 169 mg/dL 09/16/2015 Lipid Ord30 HDL 66.0 mg/dl 09/16/2015 Lipid Ord30 TRIG 78 mg/dL 09/16/2015 Lipid Ord30 LDL 87 mg/dL 09/16/2015 Lipid Ord30 C/HDL 2.6 Ratio 09/16/2015 Pt Iko9491 PT 26.6 seconds 08/21/2015 Pt Mjb4778 INR 2.6 08/21/2015 Pt Qjn2373 Low Intensity - 1.5-2.0 08/21/2015 Pt Xty7510 Mod intensity - 2.0-3.0 08/21/2015 Pt Fun6908 Hi intensity - 3.0-4.0 08/21/2015 Comp Metabolic Abp564 NA 141 mEq/L 08/08/2015 Comp Metabolic Xin087 K 3.3 mEq/L 08/08/2015 Comp Metabolic Rsj182 CL 102 mEq/L 08/08/2015 Comp Metabolic Tyu468 CO2 31.0 mEq/L 08/08/2015 Comp Metabolic Shv344 AN ION GAP 11 08/08/2015 Comp Metabolic Hpd328 GL UCOSE 83 mg/dL 08/08/2015 Comp Metabolic Rnm163 Cr eat 1.0 mg/dL 08/08/2015 Comp Metabolic Qyf344 eG FR 55 ml/min/1.73m2 08/08 Comp Metabolic Ijo391 BUN 19 mg/dL 08/08/2015 Comp Metabolic Ulh762 B/ C Ratio 18.3 Ratio 08/08/2015 Comp Metabolic Npt691 CA LCIUM 8.9 mg/dL 08/08/2015 Comp Metabolic Xrf340 AL K PHOS 84 U/L 08/08/2015 Comp Metabolic Akm402 T(SGOT) 20 U/L 08/08/2015 Comp Metabolic Est558 AL T(SGPT) 18 U/L 08/08/2015 Comp Metabolic Myx979 BI LI T 0.6 mg/dL 08/08/2015 Comp Metabolic Hcv883 AL BUMIN 3.3 g/dL 08/08/2015 Comp Metabolic Dby139 TP RO 5.9 g/dL 08/08/2015 Comp Metabolic Zsg352 GL OB 2.6 g/dL 08/08/2015 Comp Metabolic Ycc532 A/ G Ratio 1.3 Ratio 08/08/2015 Comp Metabolic Gic495 Os mo 283 mOsmo 08/08/2015 Cbc With [...] 30.0 pg 08/08/2015 Cbc With Differential Ord2 Carroll% 8.2 % 08/08/2015 Cbc With Differential Ord2 [...] 2.90 K/ul 08/08/2015 Cbc With Differential Ord2 [place] ABS# 0.9 K/ul 08/08/2015 Cbc With Differential [...] Ord93 BILI I 0.5 mg/dL 08/08/2015 Pt Djz4340 PT 31.8 seconds 08/05/2015 Pt Ffw4662 INR 3.2 08/05/2015 Pt Bbk3301 Low Intensity - 1.5-2.0 08/05/2015 Pt Iqh0518 Mod intensity - 2.0-3.0 08/05/2015 Pt Fmy9519 Hi intensity - 3.0-4.0 08/05/2015 Pt Ovk0811 PT 27.4 seconds 06/27/2015 Pt Oxp1211 INR 2.6 06/27/2015 Pt Qel8162 Low Intensity - 1.5-2.0 06/27/2015 Pt Zzs0538 Mod intensity - 2.0-3.0 06/27/2015 Pt Kkc6454 Hi intensity - 3.0-4.0 06/27/2015 Tsh Ord6 [...] Ord2 RDW 15.1 % 05/31/2015 Free T4 Ovh053 FREE T4 1.89 ng/dL 05/31/2015 Comp Metabolic Smr799 NA 140 mEq/L 05/31/2015 Comp Metabolic Rbo080 K 3.3 mEq/L 05/31/2015 Comp Metabolic Zpv032 CL 99 mEq/L 05/31/2015 Comp Metabolic Ywj666 CO2 30.0 mEq/L 05/31/2015 Comp Metabolic Tnv841 AN ION GAP 14 05/31/2015 Comp Metabolic Ipu390 GL UCOSE 70 mg/dL 05/31/2015 Comp Metabolic Qpo630 Cr eat 1.0 mg/dL 05/31/2015 Comp Metabolic Dgv280 eG FR 55 ml/min/1.73m2 05/31 Comp Metabolic Xem653 BUN 23 mg/dL 05/31/2015 Comp Metabolic Rmt208 B/ C Ratio 22.1 Ratio 05/31/2015 Comp Metabolic Ocd069 CA LCIUM 8.9 mg/dL 05/31/2015 Comp Metabolic Arm014 AL K PHOS 86 U/L 05/31/2015 Comp Metabolic Win723 T(SGOT) 28 U/L 05/31/2015 Comp Metabolic Cdw375 AL T(SGPT) 30 U/L 05/31/2015 Comp Metabolic Qgl719 BI LI T 0.4 mg/dL 05/31/2015 Comp Metabolic Tcy450 AL BUMIN 3.3 g/dL 05/31/2015 Comp Metabolic Fhd626 TP RO 6.0 g/dL 05/31/2015 Comp Metabolic Tkl774 GL OB 2.7 g/dL 05/31/2015 Comp Metabolic Cru107 A/ G Ratio 1.2 Ratio 05/31/2015 Comp Metabolic Nqu353 Os mo 282 mOsmo 05/31/2015 Pt Phr2742 PT 23.3 seconds 04/15/2015 Pt Kvx8860 INR 2.2 04/15/2015 Pt Ylu3955 Low Intensity - 1.5-2.0 04/15/2015 Pt Ibe0392 Mod intensity - 2.0-3.0 04/15/2015 Pt Uuk4091 Hi intensity - 3.0-4.0 04/15/2015 Pt Nny2664 PT 19.5 seconds 04/04/2015 Pt Aqa3058 INR 1.7 04/04/2015 Pt Pfm9811 Low Intensity - 1.5-2.0 04/04/2015 Pt Ult6143 Mod intensity - 2.0-3.0 04/04/2015 Pt Lsu3666 Hi intensity - 3.0-4.0 04/04/2015 Pt Tqq7495 PT 39.8 seconds 04/01/2015 Pt Qvu1699 INR 4.3 04/01/2015 Pt Fzr4860 Low Intensity - 1.5-2.0 04/01/2015 Pt Pnt6713 Mod intensity - 2.0-3.0 04/01/2015 Pt Nce4536 Hi intensity - 3.0-4.0 04/01/2015 Metabolic Ord15 [...] Metabolic Ord15 CALCIUM 8.7 mg/dL 02/28/2015 Pt Zwf0732 PT 31.4 seconds 02/28/2015 Pt Ief4684 INR 3.2 02/28/2015 Pt Fge9146 Low Intensity - 1.5-2.0 02/28/2015 Pt Pan3092 Mod intensity - 2.0-3.0 02/28/2015 Pt Ttc7757 Hi intensity - 3.0-4.0 02/28/2015 Pt Kkr5821 PT 23.2 seconds 01/18/2015 Pt Pcj4027 INR 2.1 01/18/2015 Pt Kbu4793 Low Intensity - 1.5-2.0 01/18/2015 Pt Pyf6763 Mod intensity - 2.0-3.0 01/18/2015 Pt Uwi2227 Hi intensity - 3.0-4.0 01/18/2015 Pt Tlp4519 PT 18.2 seconds 01/10/2015 Pt Vmt6086 INR 1.6 01/10/2015 Pt Lws3313 Low Intensity - 1.5-2.0 01/10/2015 Pt Blw2060 Mod intensity - 2.0-3.0 01/10/2015 Pt Itp4696 Hi intensity - 3.0-4.0 01/10/2015 Review of [...] Date URINALYSIS NONAUTO W /O SCOPE CPT-4: 96654 12/05/2018 ROCEPHIN, PER 250 MG CPT-4: J0696 10/27/2018 URINALYSIS NONAUTO W /O SCOPE CPT-4: 98333 10/27/2018 ADMIN INFLUENZA VIRU S VAC CPT-4: G0008 03/24/2018 ADMIN PNEUMOCOCCAL V ACCINE SNOMED CT: 34958053 CPT-4: G0009 03/24/2018 FLU VACC PRSV FREE I NC ANTIG Formatting Model/CDA Sections, Assigned to/Dorothea Tan CPT-4: 81620Bgabtwi 03/24/2018 Pneumococcal Polysac charide Vaccine, 23-Valent, Ad CPT-4: 66720 03/24/2018 TRIAMCINOLONE ACET I [place] NOS CPT-4: J3301 06/15/2017 THER/PROPH/DIAG INJ SC/IM CPT-4: 05904 06/15/2017 ADMIN PNEUMOCOCCAL V ACCINE SNOMED CT: 84450106 CPT-4: G0009 03/16/2017 ADMIN INFLUENZA VIRU S VAC CPT-4: G0008 03/16/2017 FLU VAC NO PRSV 4 VA L 3 YRS+ CPT-4: 37565 03/16/2017 PNEUMOCOCCAL VACC [address]: 64999994 CPT-4: 31404 03/16/2017 URINALYSIS NONAUTO W /O SCOPE CPT-4: 77196 08/26/2016 THER/PROPH/DIAG INJ SC/IM CPT-4: 09108 07/22/2016 TRIAMCINOLONE ACET I [place] NOS CPT-4: J3301 07/22/2016 ROCEPHIN, PER 250 MG CPT-4: J0696 07/22/2016 TRIAMCINOLONE ACET I [place] NOS CPT-4: J3301 02/05/2015 Vital Signs Date Vital 12/05/2018 Blood Pressure 1: 132/70 Code: 8480-6 BMI: 32.4 Code: 20467-6 Heart Rate 1: 84 bpm Height: 5'7" SpO2: 91% Weight: 207 lbs 11/17/2018 Blood Pressure 1: 102/62 Code: 8480-6 BMI: 32.4 Code: 92120-0 Heart Rate 1: 83 bpm Height: 5'7" SpO2: 94% Weight: 207 lbs 10/27/2018 Blood Pressure 1: 120/74 Code: 8480-6 BMI: 32.4 Code: 57947-2 Heart Rate 1: 65 bpm Height: 5'7" SpO2: 97% Weight: 207 lbs 09/27/2018 Blood Pressure 1: 128/74 Code: 8480-6 BMI: 32.4 Code: 97999-3 Heart Rate 1: 92 bpm Height: 5'7" SpO2: 97% Weight: 207 lbs 08/16/2018 Blood Pressure 1: 104/66 Code: 8480-6 BMI: 32.3 Code: 93013-4 Heart Rate 1: 94 bpm Height: 5'7" SpO2: 96% Weight: 206 lbs 07/11/2018 Blood Pressure 1: 102/68 Code: 8480-6 BMI: 34.5 Code: 04986-7 Heart Rate 1: 101 bpm Height: 5'7" SpO2: 98% Weight: 220 lbs 03/24/2018 Blood Pressure 1: 130/72 Code: 8480-6 BMI: 33.4 Code: 11559-9 Heart Rate 1: 82 bpm Height: 5'7" SpO2: 93% Weight: 213 lbs 11/18/2017 Blood Pressure 1: 128/70 Code: 8480-6 BMI: 33.6 Code: 23621-5 Heart Rate 1: 98 bpm Height: 5'7" SpO2: 97% Weight: 214 lbs 8 oz 09/30/2017 Blood Pressure 1: 100/50 Code: 8480-6 BMI: 34.0 Code: 89701-6 Heart Rate 1: 66 bpm Height: 5'7" SpO2: 96% Weight: 217 lbs 08/17/2017 Blood Pressure 1: 104/60 Code: 8480-6 BMI: 33.7 Code: 65715-4 Heart Rate 1: 99 bpm Height: 5'7" SpO2: 97% Weight: 215 lbs 06/15/2017 Blood Pressure 1: 120/64 Code: 8480-6 BMI: 33.5 Code: 77137-6 Heart Rate 1: 91 bpm Height: 5'7" SpO2: 94% Weight: 214 lbs 04/01/2017 Blood Pressure 1: 110/68 Code: 8480-6 BMI: 154.4 Code: 61743-8 Heart Rate 1: 66 bpm Height: 2'7" SpO2: 95% Weight: 211 lbs 03/16/2017 Blood Pressure 1: 130/72 Code: 8480-6 BMI: 33.0 Code: 47033-7 Heart Rate 1: 95 bpm Height: 5'7" SpO2: 97% Weight: 211 lbs 02/09/2017 Blood Pressure 1: 120/70 Code: 8480-6 BMI: 32.9 Code: 57563-8 Heart Rate 1: 78 bpm Height: 5'7" SpO2: 96% Weight: 210 lbs 10/13/2016 Blood Pressure 1: 118/76 Code: 8480-6 BMI: 32.6 Code: 61067-7 Heart Rate 1: 97 bpm Height: 5'7" SpO2: 98% Weight: 208 lbs 07/31/2016 Blood Pressure 1: 110/64 Code: 8480-6 BMI: 32.1 Code: 24740-0 Heart Rate 1: 79 bpm Height: 5'7" SpO2: 94% Weight: 205 lbs 07/22/2016 Blood Pressure 1: 108/74 Code: 8480-6 BMI: 32.1 Code: 40181-0 Heart Rate 1: 71 bpm Height: 5'7" SpO2: 97% Temperature: 36.9 (C ) / 98.4 (F) Weight: 205 lbs 05/01/2016 Blood Pressure 1: 120/72 Code: 8480-6 BMI: 32.7 Code: 61913-2 Heart Rate 1: 75 bpm Height: 5'7" SpO2: 94% Weight: 209 lbs 04/06/2016 Blood Pressure 1: 106/62 Code: 8480-6 BMI: 32.7 Code: 37836-0 Heart Rate 1: 83 bpm Height: 5'7" SpO2: 97% Weight: 209 lbs 03/06/2016 Blood Pressure 1: 112/68 Code: 8480-6 BMI: 32.7 Code: 53967-5 Heart Rate 1: 90 bpm Height: 5'7" SpO2: 97% Weight: 209 lbs 03/03/2016 Blood Pressure 1: 120/62 Code: 8480-6 BMI: 32.7 Code: 30967-0 Heart Rate 1: 92 bpm Height: 5'7" SpO2: 98% Weight: 209 lbs 02/07/2016 Blood Pressure 1: 110/64 Code: 8480-6 BMI: 32.7 Code: 02556-2 Heart Rate 1: 87 bpm Height: 5'7" SpO2: 97% Weight: 209 lbs 12/13/2015 Blood Pressure 1: 110/64 Code: 8480-6 BMI: 33.5 Code: 48626-4 Heart Rate 1: 90 bpm Height: 5'7" SpO2: 97% Weight: 214 lbs 12/03/2015 Blood Pressure 1: 132/76 Code: 8480-6 BMI: 33.4 Code: 61182-1 Heart Rate 1: 82 bpm Height: 5'7" SpO2: 99% Weight: 213 lbs 11/20/2015 Blood Pressure 1: 108/68 Code: 8480-6 BMI: 32.4 Code: 23562-2 Heart Rate 1: 77 bpm Height: 5'7" SpO2: 97% Weight: 207 lbs 09/17/2015 Blood Pressure 1: 122/76 Code: 8480-6 BMI: 33.0 Code: 05199-1 Heart Rate 1: 91 bpm Height: 5'7" SpO2: 97% Weight: 211 lbs 05/31/2015 Blood Pressure 1: 128/82 Code: 8480-6 BMI: 33.4 Code: 21859-9 Heart Rate 1: 98 bpm Height: 5'7" SpO2: 99% Weight: 213 lbs 02/05/2015 Blood Pressure 1: 128/80 Code: 8480-6 BMI: 32.6 Code: 75368-2 Heart Rate 1: 86 bpm Height: 5'7" SpO2: 97% Weight: 208 lbs 11/20/2014 Blood Pressure 1: 128/90 Code: 8480-6 BMI: 30.9 Code: 37527-1 Heart Rate 1: 94 bpm Height: 5'7" [...] ongoing 11/20/2015 None Hospital Follow Up _ [facility]: fall 09/17/2015 None Hospital Follow Up [...] Findings Denies fever 05/31/2015 None 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 P ATIENT, LEVEL III Diagnosis: Urinary tract infection, site not specified[ICD10: N39.0] Brielle Pisano MD, [facility] CPT-4: 05398 12/05/2018 ([id number]) 92264 EST. P ATIENT, LEVEL III Diagnosis: Contusion of right lower leg, initial encounter[ICD10: S80.11XA] Diagnosis: intermediate (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[ICD10: Z79.01] Brielle Pisano MD, [facility] CPT-4: 79100 11/17/2018 ([id number]) 24184 EST. P ATIENT, LEVEL III Diagnosis: Urinary tract infection, site not specified[ICD10: N39.0] Brielle Pisano MD, [facility] CPT-4: 62212 10/27/2018 ([id number]) 06097 EST. 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 P ATIENT, LEVEL IV Diagnosis: Essential (primary) hypertension[ICD10: I10] Diagnosis: Atrophy of thyroid (acquired)[ICD10: E03.4] Diagnosis: Sebaceous cyst[ICD10: L72.3] Diagnosis: Chronic atrial fibrillation[ICD10: I48.2] Diagnosis: intermediate (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[ICD10: Z79.01] Valerie Pisano MD, C CPT-4: 67060 08/16/2018 ([id number]) 08533 EST. P ATIENT, LEVEL IV Diagnosis: Atrophy of thyroid (acquired)[ICD10: E03.4] Diagnosis: Essential (primary) hypertension[ICD10: I10] Diagnosis: Other fatigue[ICD10: R53.83] Diagnosis: Localized edema[ICD10: R60.0] Valerie Pisano MD, [facility] CPT-4: 52328 07/11/2018 ([id number]) 28341 EST. P ATIENT, LEVEL IV Diagnosis: Essential (primary) hypertension[ICD10: I10] Diagnosis: Atrophy of thyroid (acquired)[ICD10: E03.4] Diagnosis: Chronic atrial fibrillation[ICD10: I48.2] Valerie Pisano MD, C CPT-4: 72671 03/24/2018 ([id number]) 86524 EST. P ATIENT, LEVEL IV Diagnosis: Essential (primary) hypertension[ICD10: I10] Diagnosis: Atrophy of thyroid (acquired)[ICD10: E03.4] Diagnosis: Chronic atrial fibrillation[ICD10: I48.2] Valerie Pisano MD, [facility] CPT-4: 01843 11/18/2017 86920 EST. PATIENT, LEVEL IV Diagnosis: Localized edema[ICD10: R60.0] Roxie Pisano MD, [facility] CPT-4: 55716 09/30/2017 ([id number]) 99821 EST. P ATIENT, LEVEL III Diagnosis: Essential (primary) hypertension[ICD10: I10] Valerie Pisano MD, C CPT-4: 11146 08/17/2017 ([id number]) 73555 EST. P ATIENT, LEVEL IV Diagnosis: Essential (primary) hypertension[ICD10: I10] Diagnosis: Atrophy of thyroid (acquired)[ICD10: E03.4] Diagnosis: Chronic atrial fibrillation[ICD10: I48.2] Diagnosis: Cervicalgia[ICD10: M54.2] Diagnosis: Other muscle spasm[ICD10: M62.838] Valerie Pisano MD, [facility] CPT- 4: 88526 06/15/2017 29089 EST. PATIENT, LEVEL III Diagnosis: Laceration without foreign body of other finger without damage to nail, initial encounter[ICD10: S61.218A] Roxie Pisano MD, [facility] CPT-4: 35490 04/01/2017 ([id number]) 73503 EST. 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 P ATIENT, LEVEL IV Diagnosis: Chronic atrial fibrillation[ICD10: I48.2] Diagnosis: Essential (primary) hypertension[ICD10: I10] Diagnosis: Other fatigue[ICD10: R53.83] Diagnosis: intermediate (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[ICD10: Z79.01] Diagnosis: Atrophy of thyroid (acquired)[ICD10: E03.4] Valerie Pisano MD, [facility] CPT-4: 32110 02/09/2017 ([id number]) 91988 EST. P ATIENT, LEVEL IV Diagnosis: Essential (primary) hypertension[ICD10: I10] Diagnosis: Chronic atrial fibrillation[ICD10: I48.2] Diagnosis: Tinea corporis[ICD10: B35.4] Diagnosis: intermediate (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[ICD10: Z79.01] Diagnosis: Other skin changes[ICD10: R23.8] Valerie Pisano MD, [facility] CPT-4: 51140 10/13/2016 02870 EST. PATIENT, LEVEL III Diagnosis: Other acute sinusitis[ICD10: J01.80] Diagnosis: Other allergic rhinitis[ICD10: J30.89] Roxie Pisano MD, [facility] CPT-4: 53588 07/31/2016 ([id number]) 43774 EST. P ATIENT, LEVEL III Diagnosis: Acute recurrent maxillary sinusitis[ICD10: J01.01] Valerie Pisano MD, [facility] CPT-4: 72918 07/22/2016 38071 EST. PATIENT, LEVEL IV Diagnosis: Essential (primary) hypertension[ICD10: I10] Diagnosis: Other allergic rhinitis[ICD10: J30.89] Diagnosis: Localized edema[ICD10: R60.0] Roxie Pisano MD, [facility] CPT-4: 39899 05/01/2016 65720 EST. PATIENT, LEVEL III Diagnosis: Cellulitis of left lower limb[ICD10: L03.116] Diagnosis: Localized edema[ICD10: R60.0] Roxie Pisano MD, [facility] CPT-4: 41171 04/06/2016 ([id number]) Miscellaneou s no charge Diagnosis: Cellulitis of left lower limb[ICD10: L03.116] Diagnosis: Localized edema[ICD10: R60.0] Roxie Pisano MD, [facility] CPT-4: 38805 03/10/2016 ([id number]) Miscellaneou s no charge Diagnosis: Cellulitis of left lower limb[ICD10: L03.116] Roxie Pisano MD, [facility] CPT-4: 05045 03/06/2016 50868 EST. PATIENT, LEVEL IV Diagnosis: Cellulitis of left lower limb[ICD10: L03.116] Diagnosis: Localized edema[ICD10: R60.0] Roxie Pisano MD, [facility] CPT-4: 61823 03/03/2016 ([id number]) 69003 EST. 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 P ATIENT, LEVEL III Diagnosis: Iliotibial band syndrome, right leg[ICD10: M76.31] Diagnosis: Localized edema[ICD10: R60.0] Brielle Pisano MD, [facility] CPT- 4: 97662 12/13/2015 ([id number]) 21345 EST. P ATIENT, LEVEL III Diagnosis: Localized edema[ICD10: R60.0] Diagnosis: Essential (primary) hypertension[ICD10: I10] Brielle Pisano MD, [facility] CPT-4: 02405 12/03/2015 ([id number]) 10244 EST. 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 PATIENT, LEVEL IV Diagnosis: Essential (primary) hypertension[ICD10: I10] Diagnosis: intermediate (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[ICD10: Z79.01] Diagnosis: Muscle spasm of back[ICD10: M62.830] Roxie Pisano MD, [facility] CPT- 4: 12939 09/17/2015 ([id number]) 46664 EST. P ATIENT, LEVEL IV Diagnosis: Localized edema[ICD10: R60.0] Diagnosis: Other specified hypothyroidism[ICD10: E03.8] Diagnosis: Essential (primary) hypertension[ICD10: I10] Brielle Pisano MD, [facility] CPT-4: 17171 05/31/2015 ([id number]) 64873 EST. P ATIENT, LEVEL III Diagnosis: ALLERGIC RHINITIS[ICD9: 477.9] Diagnosis: ESSENTIAL HYPERTENSION[ICD9: 401.9] Brielle Pisano MD, [facility] CPT-4: 12721 02/05/2015 ([id number]) OFFICE [facility] - LEVEL 4 Diagnosis: ESSENTIAL HYPERTENSION[ICD9: 401.9] Diagnosis: HYPOTHYROIDISM[ICD9: 244.9] Diagnosis: ACTINIC KERATOSIS[ICD9: 702.0] Valerie Pisano MD, [facility] CPT-4: 81312 11/20/2014 Plan of Care Planned Activity Notes [...] symptoms develop. Patient verbalized understanding of plan. [employer] or [employer] principal use of anti coagulants -check PT/INR 11/17/2018 Appointment: Dirk Brielle WPtel: [phone] [phone] (30 min) Complex 11/17/2018 Patient Education: Patient Medication Summary Completed 11/17/2018 Visit Plan: UTI - pt with positive urinalysis - culture sent if appropriate. Antibiotic electronically prescribed to pt's pharmacy of choice. Pt to call if symptoms do not improve. 10/27/2018 Appointment: [phone] (10 min) Simple 10/27/2018 Patient Education: Patient [...] Dr. Hernandez. 09/27/2018 Appointment: Valerie Pisano WPtel: [phone] [facility] (15 min) Moderate 09/27/2018 Patient Education: [...] Valerie Pisano WPtel: [facility] (15 min) Moderate 08/16/2018 Patient Education: Patient Medication Summary Completed 08/16/2018 Patient Education: Hypertension Completed 08/16/2018 Patient Education: Patient Medication Summary Completed 07/29/2018 Appointment: Brielle Cavazos WPtel: [phone] [place] (15 min) Moderate 07/12/2018 Visit Plan: [...] daily. 07/11/2018 Appointment: [phone] ([facility] min) Moderate 07/11/2018 Patient Education: [...] today. 03/24/2018 Appointment: [phone] [facility] [place] (15 min) Moderate 03/24/2018 Patient Education: [...] Valerie Pisano WPtel: [facility] (15 min) Moderate 11/18/2017 Patient Education: Patient Medication Summary Completed 11/18/2017 Referral: [facility] WPtel: 1 [facility] Pt notified at appointment Appointment Confirmed [...] Roxie Cazares WPtel: [facility] (30 min) Complex 09/30/2017 Patient Education: Patient Medication Summary Completed 09/30/2017 Care Plan: Referral Order SNOMED-CT : [id number] Pending 09/30/2017 Visit Plan: Hypertension - well [...] time. 08/17/2017 Appointment: Valerie [facility]ano [facility]el[phone] [facility] [place] (15 min) Moderate 08/17/2017 Patient Education: [...] neck muscles. allergies - kenalog 40mg im PercuVision squibb - lot # [id number] expires september 2018 06/15/2017 Visit Plan: Hypertension [...] muscles. 06/15/2017 Appointment: [facility]ano [facility]el[phone] [facility] (15 min) Moderate 06/15/2017 Patient Education: Patient Medication Summary Completed 06/15/2017 Care Plan: Referral Order SNOMED-CT : [id number] Pending 06/15/2017 Appointment: Nurse Visit 04/05/2017 Appointment: [...] tetanus booster. 04/01/2017 Appointment: Roxie Cazares WPtel: [phone] (15 min) Moderate 04/01/2017 Patient Education: Patient [...] shot today 03/16/2017 Appointment: [facility]el[phone] (15 min) Moderate 03/16/2017 Patient Education: [...] allergy spray. 02/09/2017 Appointment: Valerie Pisano WPtel: [address] [place], [place] [address] (15 min) Moderate 02/09/2017 Patient Education: Patient [...] for nystatin 10/13/2016 Appointment: Valerie Pisano WPtel: [phone] [facility] (15 min) Moderate 10/13/2016 Patient Education: Patient Medication Summary Completed 10/13/2016 Patient Education: Obesity Completed 10/13/2016 Patient Education: Hypertension Completed 10/13/2016 Care Plan: Urine Culture Pending 08/31/2016 Appointment: Roxie Cazares WPtel: [facility] [address] Lab Draw 08/27/2016 Appointment: Nurse Visit [...] Brielle Cavazos WPtel: [phone] (30 min) Complex 07/31/2016 Patient Education: Patient Medication Summary Completed 07/31/2016 Patient Education: Obesity Completed 07/31/2016 Visit Plan: Sinusitis - Pt has acut e infection - pain in face, maxillary region, Pt informed to use decongestant, RX given to patient, sinus rinses also recommended. Call if symptoms do not show improvement. 07/22/2016 Appointment: Valerie Pisano WPtel: [facility] (15 min) Moderate 07/22/2016 Patient Education: [...] edema. 05/01/2016 Appointment: Brielle Cavazos WPtel: [phone] [phone] (30 min) Complex 05/01/2016 Patient Education: Patient [...] edema. 04/06/2016 Appointment: Roxie Cazares WPtel: [phone] [phone] (30 min) Complex 04/06/2016 Patient Education: Patient Medication Summary Completed 04/06/2016 Patient Education: Obesity Completed 04/06/2016 Visit Plan: left foot - improved - pt finished with antibiotics - continue to monitor - notify clinic with any concerns. Repeat INR today. 03/10/2016 Appointment: Brielle Cavazos WPtel: [phone] [phone] (30 min) Complex 03/10/2016 Patient Education: Patient Medication Summary Completed 03/10/2016 Visit Plan: Cellulitis - continue w ith oral antibiotics as previously directed, return to clinic as previously directed, call for acute change in symptoms, worsening redness, warmth, discharge. 03/06/2016 Appointment: Brielle Cavazos WPtel: [facility] (15 min) Moderate 03/06/2016 Patient Education: Patient Medication Summary Completed 03/06/2016 Patient Education: Obesity Completed 03/06/2016 Visit Plan: Cellulitis - continue w ith oral antibiotics as previously directed, return to clinic as previously directed, call for acute change in symptoms, worsening redness, warmth, discharge. 03/03/2016 Appointment: Brielle Cavazos WPtel: [address] [place], [place] [phone] (15 min) Moderate 03/03/2016 Patient Education: Patient [...] Brielle Cavazos WPtel: [facility] [place] [phone] (30 min) Complex 02/07/2016 Patient Education: Patient Medication Summary Completed 02/07/2016 Patient Education: Obesity Completed 02/07/2016 Patient Education: Hypertension Completed 02/07/2016 Appointment: Brielle Cavazos WPtel: [phone] [phone] (30 min) Complex 02/04/2016 Visit Plan: Iliotibial [...] edema. 12/13/2015 Appointment: Brielle Cavazos WPtel: [phone] [phone] (15 min) Moderate 12/13/2015 Patient Education: Patient [...] home. 12/03/2015 Appointment: Brielle Cavazos WPtel: [phone] [phone] (30 min) Complex 12/03/2015 Patient Education: Patient [...] Valerie Pisano WPtel: [facility] (15 min) Moderate 01/29/2015 Visit Plan: Hypertension [...] control. 11/20/2014 Appointment: Valerie Pisano WPtel: [phone] [facility] [place] ([place]) New Patient 11/20/2014 Patient Education: Patient Medication Summary Completed 11/20/2014 Patient Education: Hypertension Completed 11/20/2014 Patient Education: Patient Medication Summary Completed 10/19/2014 Referral: [facility] WPtel: Referral Appointment Requested Referral: [facility] WPtel: [address] [place] [id number] [place] Referral Appointment Confirmed Instructions Comment . [...] twice daily. get blood work one w [place] before next appt - fasting labs Decrease [...] neck muscles. allergies - kenalog 40mg im PercuVision squibb - lot # [id number] expires september 2018 . Hypertension - wel [...] symptoms develop. Patient verbalized understanding of plan. intermediate use of anti coagulants -check PT/INR . [...]
--- OUTSIDE RECORDS SUMMARY | 2019-09-12 11:03 | XMS REPORT | CCD ---
Author Author Clara Pisano Organization Valerie Pisano MD, [facility] Address [address] [place] [address] Phone Care Team Providers Care Block Feeder Name Role Phone PP Unavailable CCM Unavailable Summary Purpose Interface Exchange Insurance Providers Payer name Policy type / Coverage type Covered green party ID Effective Begin Date Effective End Date WPS Medicare Part B Medicare Part B [id number] 2018 Unknown [employer] Medicare Part B [id number] 2018 Unknown Family history Sister Diagnosis Age At Onset defect Unknown Breast cancer Unknown Daughter Diagnosis Age At Onset Breast cancer Unknown Mother Diagnosis Age At Onset No Family Disease Entered N/A Social History Social History Element Codes Description Effective Dates Marital status Unknown M arried Lane 11/20/2014 Number of children Unknown 6 11/20/2014 Employment Unknown Retir ed 11/20/[address]: 4348811 Quit over 10 years ago 1963 11/20/2014 Alcohol history Unknown occasionally drinks alcohol 11/20/2014 Allergies, Adverse Reactions, Alerts Substance Reaction Codes Entered Date Inactivated Date Status SULFA(SULFONAMIDE AN TIBIOTICS) rash Unknown 11/20/2014 No Inactive Date Active Past Medical History Illness Codes Condition Status Onset Date Resolved Date Contusion of right l ower leg, initial encounter ICD-9: 924.4 ICD-10: S80.11XA 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/2018 Unknown detention (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 ICD-9: V58.61 ICD-10: Z79.01 Active 02/06/2016 Unknown Urinary tract infect ion, site not specified ICD-9: 599.0 ICD-10: N39.0 Active 02/13/2016 Unknown Atrophy of thyroid ( acquired) ICD-9: [...] Condition Codes Effectiv e Dates Condition Status Contusion of right l ower leg, initial encounter ICD-9: 924.4 ICD-10: S80.11XA 11/17/2018 Active director of radiology (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 ICD-9: V58.61 ICD-10: Z79.01 02/06/2016 Active Urinary tract infect ion, site not specified ICD-9: 599.0 ICD-10: N39.0 02/13/2016 Active Atrophy of thyroid ( acquired) ICD-9: [...] 11/19/2014 Active HYPOTHYROIDISM ICD-9: 244.9 11/19/2014 Active director of radiology current us 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 therapy ICD-9: V58.61 10/19/2014 Active Medications Medication Codes Instruc tions Start Date Stop Date Sta Fill Instructions Keflex 500 mg capsule RxNorm: 073498 1 Capsule(s) PO TID 11/17/2018 11/21/2018 Active doxycycline hyclate 100 mg capsule RxNorm: 3944121 1 Capsule(s) PO BID 10/31/2018 10/30/2018 In active doxycycline hyclate 100 mg capsule RxNorm: 2402253 1 Capsule(s) PO BID 10/31/2018 11/06/2018 In active Keflex 500 mg capsule RxNorm: 651363 1 Capsule(s) PO TID 10/27/2018 10/30/2018 Inactive ceftriaxone 500 mg s olution for injection RxNorm: 2388243 Inj 10/27/2018 10/27/2018 Inactive Coumadin 4 mg tablet RxNorm: 642441 1 Tablet(s) PO daily 08/16/2018 08/10/2019 Active this is an update to her RX - she will l et you know when she needs refill triamcinolone aceton sreekanth 0.025 % topical cream RxNorm: 9629063 1 Application TOP QI D 08/16/2018 No Stop Date Active levothyroxine 125 mc g tablet RxNorm: 883064 TAKE ONE TABLET BY MO UTH DAILY ON WEDNESDAY, WED, AND WEDNESDAY, AND 1/2 TABLET ON ., , WED AND WEDNESDAY. TAKE ON AN EMPTY STOMACH 08/04/2018 04/30/2019 Active meclizine 25 mg tablet RxNorm: 460400 1 Tablet(s) PO TID as needed Dizziness 07/22/2018 No Stop Date Active meclizine 25 mg tablet RxNorm: 530888 1 Tablet(s) PO TID as needed Dizziness 07/19/2018 07/21/2018 In active furosemide 40 mg tablet RxNorm: 572822 1 Tablet(s) BID take 1.5 tabs twice a da y x 7 days then 1 pill daily thereafter 07/11/2018 02/05/2019 Active Coumadin 4 mg tablet RxNorm: 794421 1 Tablet(s) PO daily except 1.5 pills on WEDNESDAY AND Wednesday07/11/2018 08/15/2018 Inactive this is an update to her RX - she will let you know when she needs refill warfarin 5 mg tablet RxNorm: 700277 Tablet(s) TAKE ONE TABLET BY MOUTH DAILY EXCEPT / TAKE 4 MG 04/06/2018 08/22/2019 Active diltiazem 60 mg tablet RxNorm: 916381 1/2 Tablet(s) PO QID 03/24/2018 No Stop Date Active levothyroxine 125 mc g tablet RxNorm: 083316 TAKE ONE TABLET BY MO [facility] DAILY ON WEDNESDAY, WED, AND WEDNESDAY, AND 1/2 TABLET ON , , WED AND WEDNESDAY. TAKE ON AN EMPTY STOMACH 02/02/2018 07/31/2018 Inactive Coumadin 4 mg tablet RxNorm: 609200 TAKE ONE TABLET BY MOUTH DAILY ON AND Wednesday10/14/2017 07/10/2018 Inactive nystatin 100,000 uni t/gram topical cream RxNorm: 339135 1 Application TOP TID 08/17/2017 No Stop Date Active Voltaren 1 % topical gel RxNorm: 560413 2 Gram(s) TOP TID luiz ly to shoulder and neck 08/17/2017 No Stop Date Active triamcinolone aceton sreekanth 0.025 % topical cream RxNorm: 5890329 1 Application TOP BI D 08/17/2017 08/15/2018 In active levothyroxine 125 mc g tablet RxNorm: 984540 1 Tablet(s) UD 1 pill wed/wed/wed, 1/2 pill //wed/wed take ON AN EMPTY STOMACH 08/05/2017 02/01/2018 Inactive Coumadin 4 mg tablet RxNorm: 970424 1 Tablet(s) PO Wed/07/29/2017 10/13/2017 Inactive warfarin 5 mg tablet RxNorm: 480002 TAKE 1 AND 1/2 TABLETS BY MOUTH ON AND WEDNESDAY. TAKE ONLY 1 TABLET BY MOUTH ALL OTHER DAYS OF THE WEEK 07/12/2017 04/05/2018 In active furosemide 40 mg tablet RxNorm: 910470 Tablet(s) BID TAKE ONE TABLET BY MOUTH D AILY 06/15/2017 07/10/2018 Inactive Voltaren 1 % topical gel RxNorm: 718708 2 Gram(s) TOP TID luiz ly to shoulder and neck 06/15/2017 08/16/2017 Inactive Keflex 500 mg capsule RxNorm: 940468 1 Capsule(s) PO TID 04/01/2017 04/07/2017 Inactive furosemide 40 mg tablet RxNorm: 740913 TAKE ONE TABLET BY MOUTH DAILY 03/18/2017 06/14/2017 In active Claritin-D 12 Hour 5 mg-120 mg tablet,extended release RxNorm: 5320185 1 Tablet(s) PO BID 03/16/2017 05/14/2017 Inactive Lipitor 20 mg tablet RxNorm: 345607 1 Tablet(s) PO daily 02/09/2017 03/10/2017 Inactive lisinopril 2.5 mg ta blet RxNorm: 201285 1 Tablet(s) PO daily 02/09/2017 03/10/2017 Inactive Nasonex 50 mcg/actua tion Melvin RxNorm: 5887565 1 Melvin NASAL BID 02/09/2017 09/06/2017 Inactive levothyroxine 125 mc g tablet RxNorm: 606146 1 Tablet(s) UD 1 pill wed/wed/wed, 1/2 pill //sat/sun take ON AN EMPTY STOMACH 02/09/2017 08/04/2017 Inactive fluorouracil 5 % top ical cream RxNorm: 682204 1 Application TOP BID 02/09/2017 02/18/2017 Inactive potassium chloride E R 20 mEq tablet,extended release RxNorm: 794234 Tablet(s) TAKE ONE TABLET BY MOUTH DAILY 02/08/2017 02/02/2018 Inactive warfarin 5 mg tablet RxNorm: 315271 TAKE 1 AND 1/2 TABLETS BY MOUTH ON AND WEDNESDAY. TAKE ONLY 1 TABLET BY MOUTH ALL OTHER DAYS OF THE WEEK 12/14/2016 05/30/2017 In active potassium chloride E R 20 mEq tablet,extended release RxNorm: 274867 TAKE ONE TABLET BY MOUTH DAILY 10/29/2016 01/26/2017 Inactive warfarin 5 mg tablet RxNorm: 561834 TAKE 1 AND 1/2 TABLETS BY MOUTH ON AND WEDNESDAY. TAKE ONLY 1 TABLET BY MOUTH ALL OTHER DAYS OF THE WEEK 10/27/2016 12/13/2016 In active nystatin 100,000 uni t/gram topical cream RxNorm: 195561 1 Application TOP TID 10/13/2016 08/16/2017 In active nitrofurantoin 50 mg capsule RxNorm: 632378 1 Capsule(s) PO BID 09/04/2016 09/03/2016 Inactive nitrofurantoin macro crystal 50 mg capsule RxNorm: 843214 1 Capsule(s) PO BID 09/04/2016 09/10/2016 In active Cipro 500 mg tablet RxNorm: 476859 1 Tablet(s) PO BID 08/26/2016 10/12/2016 Inactive Zyrtec 10 mg tablet RxNorm: 5451303 1 Tablet(s) PO daily 07/31/2016 08/29/2016 Inactive prednisone 20 mg tablet RxNorm: 935970 2 Tablet(s) PO daily 07/31/2016 08/02/2016 Inactive Kenalog 40 mg/mL zohra pension for injection RxNorm: 0338013 Milliliter(s) Inj 07/22/2016 07/22/2016 In active ceftriaxone 500 mg s olution for injection RxNorm: 5336560 Inj 07/22/2016 07/22/2016 Inactive Flonase Allergy Reli ef 50 mcg/actuation nasal spray,suspension RxNorm: 5621113 1 Melvin NASAL BID 07/22/2016 08/20/2016 Inactive azithromycin 250 mg tablet RxNorm: 516559 2 Tablet(s) PO on day #1, then 1 pill daily x 4 days 07/22/2016 10/12/2016 Inactive warfarin 5 mg tablet RxNorm: 948229 TAKE 1 AND 1/2 TABLETS BY MOUTH ON AND WEDNESDAY. TAKE ONLY 1 TABLET BY MOUTH ALL OTHER DAYS OF THE WEEK 07/09/2016 09/30/2016 In active levothyroxine 125 mc g tablet RxNorm: 860150 Tablet(s) TAKE ONE TA BLET BY MOUTH DAILY ON AN EMPTY STOMACH 06/23/2016 02/08/2017 Inactive levothyroxine 125 mc g tablet RxNorm: 246537 TAKE ONE TABLET BY MO UTH DAILY ON AN EMPTY STOMACH 06/23/2016 06/22/2016 Inactive levothyroxine 125 mc g tablet RxNorm: 618640 TAKE ONE TABLET BY MO UTH DAILY ON AN EMPTY STOMACH 06/23/2016 08/04/2017 Inactive cetirizine 10 mg tablet RxNorm: 6356259 TAKE ONE TABLET BY MOUTH DAILY 06/16/2016 10/13/2016 In active furosemide 40 mg tablet RxNorm: 079729 Tablet(s) TAKE ONE TABLET BY MOUTH DAILY 06/05/2016 12/01/2016 In active cetirizine 10 mg tablet RxNorm: 1796904 1 Tablet(s) PO daily 05/01/2016 05/30/2016 Inactive Levaquin 250 mg tablet RxNorm: 077585 Tablet(s) PO 2 pills day one and 1 pill day 2-7 04/06/2016 07/21/2016 Inactive warfarin 5 mg tablet RxNorm: 506164 Tablet(s) 1/2 TABLETS BY MOUTH ON AND WEDNESDAY. TAKE ONLY 1 TABLET BY MOUTH ALL OTHER DAYS OF THE WEEK 03/18/2016 07/07/2016 In active triamcinolone aceton sreekanth 0.025 % topical cream RxNorm: 4653823 1 Application TOP BI D 03/10/2016 08/16/2017 In active potassium chloride E R 20 mEq tablet,extended release RxNorm: 264487 1 Tablet(s) PO daily 03/04/2016 06/01/2016 Inactive Levaquin 250 mg tablet RxNorm: 767328 Tablet(s) PO 2 pills day one and 1 pill day 2-7 03/04/2016 04/05/2016 Inactive Levaquin 250 mg tablet RxNorm: 178738 Tablet(s) PO 2 pills day one and 1 pill day 2-7 03/03/2016 03/03/2016 Inactive potassium chloride E R 20 mEq tablet,extended release RxNorm: 540543 1 Tablet(s) PO daily 03/03/2016 03/03/2016 Inactive Cipro 500 mg tablet RxNorm: 905596 1 Tablet(s) PO BID 02/20/2016 07/21/2016 Inactive Cipro 500 mg tablet RxNorm: 216329 1 Tablet(s) PO BID 02/20/2016 02/19/2016 Inactive furosemide 40 mg tablet RxNorm: 439904 TAKE ONE TABLET BY MOUTH DAILY 01/27/2016 01/26/2016 In active warfarin 5 mg tablet RxNorm: 991348 TAKE 1 AND 1/2 TABLETS BY MOUTH ON AND WEDNESDAY. TAKE ONLY 1 TABLET BY MOUTH ALL OTHER DAYS OF THE WEEK 01/27/2016 01/26/2016 In active furosemide 40 mg tablet RxNorm: 130777 TAKE ONE TABLET BY MOUTH DAILY 01/27/2016 06/04/2016 In active warfarin 5 mg tablet RxNorm: 187013 TAKE 1 AND 1/2 TABLETS BY MOUTH ON AND WEDNESDAY. TAKE ONLY 1 TABLET BY MOUTH ALL OTHER DAYS OF THE WEEK 01/27/2016 03/17/2016 In active potassium chloride E R 20 mEq tablet,extended release RxNorm: 690981 1 Tablet(s) PO daily 11/20/2015 03/02/2016 Inactive furosemide 40 mg tablet RxNorm: 220794 TAKE ONE TABLET BY MOUTH DAILY 11/12/2015 01/26/2016 In active Zovirax 5 % topical cream RxNorm: 163596 TOP QID 0 09/24/2015 09/23/2015 Inactive Zovirax 5 % topical cream RxNorm: 329700 TOP QID 0 09/24/2015 11/19/2015 Inactive nystatin 100,000 uni t/gram topical cream RxNorm: 472753 1 Application TOP TID 09/17/2015 10/12/2016 In active warfarin 5 mg tablet RxNorm: 190749 TAKE 1 AND 1/2 TABLETS BY MOUTH ON AND WEDNESDAY. TAKE ONLY 1 TABLET BY MOUTH ALL OTHER DAYS OF THE WEEK 08/19/2015 01/05/2016 In active loratadine 10 mg tablet RxNorm: 970230 1 Tablet(s) PO daily 07/30/2015 07/23/2016 Inactive loratadine 10 mg tablet RxNorm: 228654 1 Tablet(s) PO daily 07/30/2015 07/29/2015 Inactive furosemide 40 mg tablet RxNorm: 541935 TAKE ONE TABLET BY MOUTH DAILY 06/24/2015 11/11/2015 In active levothyroxine 125 mc g tablet RxNorm: 733243 1 Tablet(s) PO daily 05/31/2015 05/24/2016 Inactive furosemide 40 mg tablet RxNorm: 940132 1 Tablet(s) PO daily 04/05/2015 06/23/2015 Inactive warfarin 5 mg tablet RxNorm: 527543 TAKE 1 AND 1/2 TABLETS BY MOUTH ON AND WEDNESDAY. TAKE ONLY 1 TABLET BY MOUTH ALL OTHER DAYS OF THE WEEK 02/12/2015 07/29/2015 In active Flonase Allergy Reli ef 50 mcg/actuation nasal spray,suspension RxNorm: 2 Melvin NASAL daily 02/05/2015 03/06/2015 Inactive Kenalog 40 mg/mL zohra pension for injection RxNorm: 2639054 Milliliter(s) Inj 02/05/2015 02/05/2015 In active warfarin 5 mg tablet RxNorm: 535767 Take 7.5mg (1 1/2 tablets) Wednesday and and 1 Tablet(s) PO (5mg) all other days 01/11/2015 02/09/2015 Inactive levothyroxine 125 mc g tablet RxNorm: 601055 1 Tablet(s) PO every other day 01/01/2015 05/30/2015 In active alternate with 150 levothyroxine 150 mc g tablet RxNorm: 936303 1 Tablet(s) PO every other day 01/01/2015 05/30/2015 In active alternate with 125 loratadine 10 mg tablet RxNorm: 465116 Tablet(s) PO as needed No Start Date Active Fish Oil 1,000 mg ca psule RxNorm: 1 Capsule(s) PO TID No Start Date Active magnesium 250 mg tablet RxNorm: 1 Tablet(s) PO daily No Start Date Active Vitamin D3 2,000 uni t tablet RxNorm: 275465 2 Tablet(s) PO daily No Start Date Active Fosamax 35 mg tablet RxNorm: 209082 1 Tablet(s) PO QW No Start Date Active levothyroxine 125 mc g tablet RxNorm: 402758 1 Tablet(s) PO daily No Start Date 12/31/2014 Inactive levothyroxine 150 mc g tablet RxNorm: 272966 1 Tablet(s) PO daily No Start Date 12/31/2014 Inactive diltiazem 60 mg tablet RxNorm: 255400 1 Tablet(s) PO QID No Start Date 03/23/2018 Inactive meclizine 25 mg tablet RxNorm: 068571 1 Tablet(s) PO TID as needed Dizziness No Start Date 07/18/2018 Inactive furosemide 40 mg tablet RxNorm: 460759 1 Tablet(s) PO daily No Start Date 04/04/2015 Inactive potassium chloride RxNorm: miscellaneous No Start Date 11/19/2015 Inactive Vitamin D2 oral RxNorm: 4018 oral No Start Date 05/31/2015 Inactive warfarin 5 mg tablet RxNorm: 912015 1 Tablet(s) PO daily No Start Date 01/10/2015 Inactive Coumadin 4 mg tablet RxNorm: 578940 1 Tablet(s) PO Wed/ No Start Date 07/28/2017 Inactive Medication Administered Medication Codes Instruc tions Start Date Status ceftriaxone 500 mg solution for injection RxNorm: 1723215 10/27/2018 No longer A ctive ceftriaxone 500 mg solution for injection RxNorm: 9659704 07/22/2016 No longer A ctive Kenalog 40 mg/mL suspension for injection RxNorm: 7570381 Milliliter 07/22/2016 No longer Active Kenalog 40 mg/mL suspension for injection RxNorm: 6155174 Milliliter 02/05/2015 No longer Active Immunizations Vaccine Codes Date Status Influenza CVX: 141 03/24 completed Pneumococcal (Adult) CVX: 33 03/24/2018 completed Influenza CVX: 141 03/16 completed Pneumococcal (Adult) CVX: 133 03/16/2017 completed Influenza CVX: 141 05/06 completed Influenza CVX: 141 04/28 completed Pneumococcal CVX: 33 06/1999 completed Assessments Condition Codes Effectiv e Dates director of radiology (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 ICD-10: Z79.01 ICD-9: V58.61 11/17/2018 Contusion of right lower leg, initial encounter ICD-10: S80.11XA ICD-9: 924.4 11/17/2018 Urinary tract infection, site not specified ICD-10: N39.0 ICD-9: 599.0 10/27/2018 Atrophy of thyroid (acquired) ICD-10 : E03.4 [...] 244.9 11/20/2014 ACTINIC KERATOSIS ICD-9: 702.0 11/20/2014 director of radiology current us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 therapy ICD-9: V58.61 10/19/2014 Reason For Visit Reason For Visit Effective Dates Notes pain, limb 11/17/2018 urinary urgency 10/27/2018 hypertension [...] Code Item Item Code Result Date Pt Aih2735 PT 18.0 seconds 11/14/2018 Pt Gnk6894 INR 1.5 11/14/2018 Pt Gbm7157 Low Intensity - 1.5-2.0 11/14/2018 Pt Vdw6323 Mod intensity - 2.0-3.0 11/14/2018 Pt Pmn6307 Hi intensity - 3.0-4.0 11/14/2018 Pt Qle5223 PT 17.3 seconds 11/03/2018 Pt Dtf7823 INR 1.5 11/03/2018 Pt Gux2389 Low Intensity - 1.5-2.0 11/03/2018 Pt Thc1198 Mod intensity - 2.0-3.0 11/03/2018 Pt Pwe5127 Hi intensity - 3.0-4.0 11/03/2018 Urine Culture Ucult Comp lete >100,000 col/ml aerobic grow th sent to ref lab 10/28/2018 Pt Zzk7949 PT 24.4 seconds 10/24/2018 Pt Iup4375 INR 2.2 10/24/2018 Pt Yws3908 Low Intensity - 1.5-2.0 10/24/2018 Pt Fzc9805 Mod intensity - 2.0-3.0 10/24/2018 Pt Rwt9595 Hi intensity - 3.0-4.0 10/24/2018 Lipid Ord30 CHOL 143 mg/dL 10/24/2018 Lipid Ord30 HDL 52.0 mg/dl 10/24/2018 Lipid Ord30 TRIG 78 mg/dL 10/24/2018 Lipid Ord30 LDL 75 mg/dL 10/24/2018 Lipid Ord30 C/HDL 2.8 Ratio 10/24/2018 Comp Metabolic Xif858 NA 142 mEq/L 10/24/2018 Comp Metabolic Lku538 K 4.6 mEq/L 10/24/2018 Comp Metabolic Gei790 CL 107 mEq/L 10/24/2018 Comp Metabolic Mux658 CO2 27.0 mEq/L 10/24/2018 Comp Metabolic Djn662 AN ION GAP 13 10/24/2018 Comp Metabolic Agc550 GL UCOSE 82 mg/dL 10/24/2018 Comp Metabolic Ubr646 Cr eat 1.1 mg/dL 10/24/2018 Comp Metabolic Gzz842 eG FR 54 ml/min/1.73m2 10/24 Comp Metabolic Sor020 BUN 23 mg/dL 10/24/2018 Comp Metabolic Bmb047 B/ C Ratio 21.9 Ratio 10/24/2018 Comp Metabolic Qdp005 CA LCIUM 9.0 mg/dL 10/24/2018 Comp Metabolic Czs542 AL K PHOS 64 U/L 10/24/2018 Comp Metabolic Sqp593 T(SGOT) 18 U/L 10/24/2018 Comp Metabolic Xui975 AL T(SGPT) 14 U/L 10/24/2018 Comp Metabolic Xow934 BI LI T 0.5 mg/dL 10/24/2018 Comp Metabolic Hzi657 AL BUMIN 3.0 g/dL 10/24/2018 Comp Metabolic Jen584 TP RO 5.2 g/dL 10/24/2018 Comp Metabolic Mdy379 GL OB 2.2 g/dL 10/24/2018 Comp Metabolic Oow135 A/ G Ratio 1.4 Ratio 10/24/2018 Comp Metabolic Oro865 Os mo 286 mOsmo 10/24/2018 Pt Svm6176 PT 23.8 seconds 09/29/2018 Pt Sxe7075 INR 2.2 09/29/2018 Pt Afo0175 Low Intensity - 1.5-2.0 09/29/2018 Pt Eoj1107 Mod intensity - 2.0-3.0 09/29/2018 Pt Jgt2743 Hi intensity - 3.0-4.0 09/29/2018 Pt Tmf0362 PT 19.6 seconds 09/19/2018 Pt Vjw6712 INR 1.7 09/19/2018 Pt Rpj3795 Low Intensity - 1.5-2.0 09/19/2018 Pt Fsy9727 Mod intensity - 2.0-3.0 09/19/2018 Pt Rkm5770 Hi intensity - 3.0-4.0 09/19/2018 Pt Jge4978 PT 16.8 seconds 09/12/2018 Pt Ybx9916 INR 1.4 09/12/2018 Pt Pnh4610 Low Intensity - 1.5-2.0 09/12/2018 Pt Itp9400 Mod intensity - 2.0-3.0 09/12/2018 Pt Vtu1896 Hi intensity - 3.0-4.0 09/12/2018 Pt Zms9451 PT 13.1 seconds 09/07/2018 Pt Int5918 INR 1.0 09/07/2018 Pt Not7968 Low Intensity - 1.5-2.0 09/07/2018 Pt Dyz6404 Mod intensity - 2.0-3.0 09/07/2018 Pt Xac8565 Hi intensity - 3.0-4.0 09/07/2018 Pt Zdz9448 PT 24.1 seconds 08/23/2018 Pt Oln8024 INR 2.2 08/23/2018 Pt Xwn1704 Low Intensity - 1.5-2.0 08/23/2018 Pt Izr3024 Mod intensity - 2.0-3.0 08/23/2018 Pt Xyy3955 Hi intensity - 3.0-4.0 08/23/2018 Pt Zrd3259 PT 30.9 seconds 08/16/2018 Pt Xno7868 INR 3.0 08/16/2018 Pt Esh3006 Low Intensity - 1.5-2.0 08/16/2018 Pt Vij9594 Mod intensity - 2.0-3.0 08/16/2018 Pt Xaq9088 Hi intensity - 3.0-4.0 08/16/2018 Pt Bgb6378 PT 29.5 seconds 08/01/2018 Pt Loe0705 INR 2.8 08/01/2018 Pt Qhd4939 Low Intensity - 1.5-2.0 08/01/2018 Pt Trf8643 Mod intensity - 2.0-3.0 08/01/2018 Pt Yej4530 Hi intensity - 3.0-4.0 08/01/2018 Pt Anp2088 PT 24.2 seconds 07/25/2018 Pt Mlf2562 INR 2.2 07/25/2018 Pt Gpa3396 Low Intensity - 1.5-2.0 07/25/2018 Pt Can3958 Mod intensity - 2.0-3.0 07/25/2018 Pt Sac0050 Hi intensity - 3.0-4.0 07/25/2018 Pt Vfb0663 PT 38.6 seconds 07/19/2018 Pt Wnh3592 INR 4.0 07/19/2018 Pt Cst0213 Low Intensity - 1.5-2.0 07/19/2018 Pt Qxg0993 Mod intensity - 2.0-3.0 07/19/2018 Pt Jnk8735 Hi intensity - 3.0-4.0 07/19/2018 Pt Vnb2898 PT 25.7 seconds 07/11/2018 Pt Xkp0952 INR 2.4 07/11/2018 Pt Ojj0490 Low Intensity - 1.5-2.0 07/11/2018 Pt Hjz2575 Mod intensity - 2.0-3.0 07/11/2018 Pt Gcq1358 Hi intensity - 3.0-4.0 07/11/2018 Pt Yfs7700 PT 18.5 seconds 07/08/2018 Pt Fbu6467 INR 1.6 07/08/2018 Pt Npv2655 Low Intensity - 1.5-2.0 07/08/2018 Pt Pgh6331 Mod intensity - 2.0-3.0 07/08/2018 Pt Xpy0516 Hi intensity - 3.0-4.0 07/08/2018 Pt Mdl2461 PT 27.3 seconds 06/29/2018 Pt Dee8105 INR 2.6 06/29/2018 Pt Ztm5941 Low Intensity - 1.5-2.0 06/29/2018 Pt Qzm9686 Mod intensity - 2.0-3.0 06/29/2018 Pt Isf9614 Hi intensity - 3.0-4.0 06/29/2018 Pt Ngp0914 PT 24.0 seconds 05/26/2018 Pt Pir6297 INR 2.2 05/26/2018 Pt Bsb1054 Low Intensity - 1.5-2.0 05/26/2018 Pt Jpx0496 Mod intensity - 2.0-3.0 05/26/2018 Pt Hpo4364 Hi intensity - 3.0-4.0 05/26/2018 Tsh Ord6 [...] 29.6 pg 03/25/2018 Cbc With Differential Ord2 [place]% 9.5 % 03/25/2018 Cbc With Differential Ord2 [...] 2.19 K/ul 03/25/2018 Cbc With Differential Ord2 [place] ABS# 0.8 K/ul 03/25/2018 Cbc With Differential Ord2 [place] ABS# 0.3 K/ul 03/25/2018 Cbc With Differential Ord2 Baso ABS# 0.0 K/ul 03/25/2018 Lipid Ord30 CHOL 156 mg/dL 03/25/2018 Lipid Ord30 HDL 52.0 mg/dl 03/25/2018 Lipid Ord30 TRIG 98 mg/dL 03/25/2018 Lipid Ord30 LDL 84 mg/dL 03/25/2018 Lipid Ord30 C/HDL 3.0 Ratio 03/25/2018 Free T4 Pak911 FREE T4 1.73 ng/dL 03/25/2018 Comp Metabolic Dep088 NA 143 mEq/L 03/25/2018 Comp Metabolic Ohe338 K 4.6 mEq/L 03/25/2018 Comp Metabolic Cxt149 CL 108 mEq/L 03/25/2018 Comp Metabolic Vio056 CO2 26.0 mEq/L 03/25/2018 Comp Metabolic Mog628 AN ION GAP 14 03/25/2018 Comp Metabolic Wli470 GL UCOSE 87 mg/dL 03/25/2018 Comp Metabolic Nlp170 Cr eat 1.2 mg/dL 03/25/2018 Comp Metabolic Yln891 eG FR 48 ml/min/1.73m2 03/25 Comp Metabolic Pqw761 BUN 18 mg/dL 03/25/2018 Comp Metabolic Yva695 B/ C Ratio 15.5 Ratio 03/25/2018 Comp Metabolic Epc660 CA LCIUM 9.1 mg/dL 03/25/2018 Comp Metabolic Odm290 AL K PHOS 58 U/L 03/25/2018 Comp Metabolic Khb050 T(SGOT) 21 U/L 03/25/2018 Comp Metabolic Zak620 AL T(SGPT) 13 U/L 03/25/2018 Comp Metabolic Atd973 BI LI T 0.7 mg/dL 03/25/2018 Comp Metabolic Cny788 AL BUMIN 3.2 g/dL 03/25/2018 Comp Metabolic Ajm661 TP RO 5.5 g/dL 03/25/2018 Comp Metabolic Htp564 GL OB 2.3 g/dL 03/25/2018 Comp Metabolic Aqp208 A/ G Ratio 1.4 Ratio 03/25/2018 Comp Metabolic Xue901 Os mo 286 mOsmo 03/25/2018 Pt Jqi5312 PT 29.0 seconds 03/22/2018 Pt Qau8929 INR 2.7 03/22/2018 Pt Tya6000 Low Intensity - 1.5-2.0 03/22/2018 Pt Odt7525 Mod intensity - 2.0-3.0 03/22/2018 Pt Nhu2431 Hi intensity - 3.0-4.0 03/22/2018 Pt Oiz0733 PT 27.1 seconds 02/25/2018 Pt Yna9554 INR 2.5 02/25/2018 Pt Ihe1692 Low Intensity - 1.5-2.0 02/25/2018 Pt Ink8394 Mod intensity - 2.0-3.0 02/25/2018 Pt Wqp2383 Hi intensity - 3.0-4.0 02/25/2018 Pt Osg7758 PT 26.1 seconds 01/26/2018 Pt Veq3348 INR 2.4 01/26/2018 Pt Xdz7234 Low Intensity - 1.5-2.0 01/26/2018 Pt Tye1850 Mod intensity - 2.0-3.0 01/26/2018 Pt Vqa0981 Hi intensity - 3.0-4.0 01/26/2018 Pt Fqt7944 PT 22.8 seconds 12/24/2017 Pt Vus7663 INR 2.0 12/24/2017 Pt Box6160 Low Intensity - 1.5-2.0 12/24/2017 Pt Vna9102 Mod intensity - 2.0-3.0 12/24/2017 Pt Brj2150 Hi intensity - 3.0-4.0 12/24/2017 Pt Frc8558 PT 29.4 seconds 11/18/2017 Pt Hkz0847 INR 2.8 11/18/2017 Pt Lxa9907 Low Intensity - 1.5-2.0 11/18/2017 Pt Tjt4293 Mod intensity - 2.0-3.0 11/18/2017 Pt Opn7186 Hi intensity - 3.0-4.0 11/18/2017 Pt Kas2373 PT 26.6 seconds 09/13/2017 Pt Wqm8521 INR 2.4 09/13/2017 Pt Jzn1587 Low Intensity - 1.5-2.0 09/13/2017 Pt Lge5644 Mod intensity - 2.0-3.0 09/13/2017 Pt Mop2992 Hi intensity - 3.0-4.0 09/13/2017 Pt Waj5476 PT 28.2 seconds 08/10/2017 Pt Kjk6469 INR 2.6 08/10/2017 Pt Ejh2437 Low Intensity - 1.5-2.0 08/10/2017 Pt Hao9372 Mod intensity - 2.0-3.0 08/10/2017 Pt Jcf7874 Hi intensity - 3.0-4.0 08/10/2017 Pt Kep7931 PT 33.9 seconds 07/27/2017 Pt Qbs2928 INR 3.3 07/27/2017 Pt Ybb8377 Low Intensity - 1.5-2.0 07/27/2017 Pt Bum0835 Mod intensity - 2.0-3.0 07/27/2017 Pt Msz1938 Hi intensity - 3.0-4.0 07/27/2017 Pt Qap9546 PT 29.1 seconds 06/29/2017 Pt Bvw9146 INR 2.7 06/29/2017 Pt Wzm9661 Low Intensity - 1.5-2.0 06/29/2017 Pt Jnp7516 Mod intensity - 2.0-3.0 06/29/2017 Pt Lmb2733 Hi intensity - 3.0-4.0 06/29/2017 Pt Rdq6812 PT 30.3 seconds 06/11/2017 Pt Gdb1820 INR 2.9 06/11/2017 Pt Coi8427 Low Intensity - 1.5-2.0 06/11/2017 Pt Fep4016 Mod intensity - 2.0-3.0 06/11/2017 Pt Wtm3307 Hi intensity - 3.0-4.0 06/11/2017 Pt Oru5621 PT 39.1 seconds 06/07/2017 Pt Fll0491 INR 3.9 06/07/2017 Pt Mqt1568 Low Intensity - 1.5-2.0 06/07/2017 Pt Gtx4883 Mod intensity - 2.0-3.0 06/07/2017 Pt Xrt8367 Hi intensity - 3.0-4.0 06/07/2017 Pt Imd3197 PT 34.2 seconds 05/26/2017 Pt Esc6042 INR 3.3 05/26/2017 Pt Vzx4406 Low Intensity - 1.5-2.0 05/26/2017 Pt Xhi0207 Mod intensity - 2.0-3.0 05/26/2017 Pt Srb5896 Hi intensity - 3.0-4.0 05/26/2017 Comp Metabolic Phf725 NA 138 mEq/L 04/23/2017 Comp Metabolic Bac885 K 4.2 mEq/L 04/23/2017 Comp Metabolic Gtv597 CL 101 mEq/L 04/23/2017 Comp Metabolic Jfc525 CO2 28.0 mEq/L 04/23/2017 Comp Metabolic Gkm024 AN ION GAP 13 04/23/2017 Comp Metabolic Yjw968 GL UCOSE 89 mg/dL 04/23/2017 Comp Metabolic Bvk520 Cr eat 1.1 mg/dL 04/23/2017 Comp Metabolic Ydm029 eG FR 51 ml/min/1.73m2 04/23 Comp Metabolic Jip740 BUN 26 mg/dL 04/23/2017 Comp Metabolic Fjn920 B/ C Ratio 23.9 Ratio 04/23/2017 Comp Metabolic Vul037 CA LCIUM 9.4 mg/dL 04/23/2017 Comp Metabolic Dbu608 AL K PHOS 95 U/L 04/23/2017 Comp Metabolic Rek948 T(SGOT) 18 U/L 04/23/2017 Comp Metabolic Orn964 AL T(SGPT) 17 U/L 04/23/2017 Comp Metabolic Jwo874 BI LI T 0.7 mg/dL 04/23/2017 Comp Metabolic Xyt914 AL BUMIN 3.2 g/dL 04/23/2017 Comp Metabolic Phk620 TP RO 5.6 g/dL 04/23/2017 Comp Metabolic Etj106 GL OB 2.4 g/dL 04/23/2017 Comp Metabolic Qtk182 A/ G Ratio 1.3 Ratio 04/23/2017 Comp Metabolic Hnd923 Os mo 280 mOsmo 04/23/2017 Pt Dvl7124 PT 28.6 seconds 04/23/2017 Pt Qjr2773 INR 2.7 04/23/2017 Pt Urr8197 Low Intensity - 1.5-2.0 04/23/2017 Pt Tpg2660 Mod intensity - 2.0-3.0 04/23/2017 Pt Kdq6519 Hi intensity - 3.0-4.0 04/23/2017 Pt Lyp2054 PT 24.4 seconds 03/16/2017 Pt Neq0786 INR 2.2 03/16/2017 Pt Uub2380 Low Intensity - 1.5-2.0 03/16/2017 Pt Khn3506 Mod intensity - 2.0-3.0 03/16/2017 Pt Aad5358 Hi intensity - 3.0-4.0 03/16/2017 Pt Qpx2117 PT 28.2 seconds 02/24/2017 Pt Ukn5891 INR 2.6 02/24/2017 Pt Esq4548 Low Intensity - 1.5-2.0 02/24/2017 Pt Mqq3814 Mod intensity - 2.0-3.0 02/24/2017 Pt Qfv3964 Hi intensity - 3.0-4.0 02/24/2017 Pt Mtz5491 PT 26.8 seconds 02/08/2017 Pt Jgs7829 INR 2.5 02/08/2017 Pt Lir4496 Low Intensity - 1.5-2.0 02/08/2017 Pt Yxr3302 Mod intensity - 2.0-3.0 02/08/2017 Pt Dab2797 Hi intensity - 3.0-4.0 02/08/2017 Lipid Ord30 CHOL 150 mg/dL 01/25/2017 Lipid Ord30 HDL 55.0 mg/dl 01/25/2017 Lipid Ord30 TRIG 66 mg/dL 01/25/2017 Lipid Ord30 LDL 82 mg/dL 01/25/2017 Lipid Ord30 C/HDL 2.7 Ratio 01/25/2017 Pt Nms3742 PT 29.9 seconds 01/25/2017 Pt Xhm7624 INR 2.8 01/25/2017 Pt Ehp0240 Low Intensity - 1.5-2.0 01/25/2017 Pt Nyb6742 Mod intensity - 2.0-3.0 01/25/2017 Pt Oby0006 Hi intensity - 3.0-4.0 01/25/2017 Comp Metabolic Oxn459 NA 143 mEq/L 01/25/2017 Comp Metabolic Prf138 K 3.9 mEq/L 01/25/2017 Comp Metabolic Fio880 CL 108 mEq/L 01/25/2017 Comp Metabolic Zvc766 CO2 23.0 mEq/L 01/25/2017 Comp Metabolic Ncl849 AN ION GAP 16 01/25/2017 Comp Metabolic Ubf714 GL UCOSE 80 mg/dL 01/25/2017 Comp Metabolic Uso704 Cr eat 1.0 mg/dL 01/25/2017 Comp Metabolic Jtw071 eG FR 57 ml/min/1.73m2 01/25 Comp Metabolic Por130 BUN 25 mg/dL 01/25/2017 Comp Metabolic Ils875 B/ C Ratio 25.0 Ratio 01/25/2017 Comp Metabolic Tot069 CA LCIUM 8.5 mg/dL 01/25/2017 Comp Metabolic Zwl256 AL K PHOS 81 U/L 01/25/2017 Comp Metabolic Lds576 T(SGOT) 19 U/L 01/25/2017 Comp Metabolic Ceu714 AL T(SGPT) 23 U/L 01/25/2017 Comp Metabolic Xoe916 BI LI T 0.5 mg/dL 01/25/2017 Comp Metabolic Bxx018 AL BUMIN 2.9 g/dL 01/25/2017 Comp Metabolic Geu577 TP RO 5.1 g/dL 01/25/2017 Comp Metabolic Kwa598 GL OB 2.2 g/dL 01/25/2017 Comp Metabolic Jah232 A/ G Ratio 1.3 Ratio 01/25/2017 Comp Metabolic Wgd486 Os mo 288 mOsmo 01/25/2017 Cbc With [...] 30.7 pg 01/25/2017 Cbc With Differential Ord2 [place]% 8.2 % 01/25/2017 Cbc With Differential Ord2 [...] 3.10 K/ul 01/25/2017 Cbc With Differential Ord2 [place] ABS# 0.8 K/ul 01/25/2017 Cbc With Differential Ord2 Eos ABS# 0.4 K/ul 01/25/2017 Cbc With Differential Ord2 Baso ABS# 0.1 K/ul 01/25/2017 Free T4 Nte442 FREE T4 2.09 ng/dL 01/25/2017 Tsh Ord6 hTSH II 0.46 uIU/mL 01/25/2017 Pt Xgo7306 PT 26.1 seconds 11/26/2016 Pt Moq8268 INR 2.6 11/26/2016 Pt Owb1598 Low Intensity - 1.5-2.0 11/26/2016 Pt Bld0502 Mod intensity - 2.0-3.0 11/26/2016 Pt Ugh6690 Hi intensity - 3.0-4.0 11/26/2016 Pt Jcg8768 PT 26.2 seconds 10/29/2016 Pt Dlz6343 INR 2.6 10/29/2016 Pt Ley4455 Low Intensity - 1.5-2.0 10/29/2016 Pt Xjg5415 Mod intensity - 2.0-3.0 10/29/2016 Pt Yib6281 Hi intensity - 3.0-4.0 10/29/2016 Pt Vgw0204 PT 20.8 seconds 10/13/2016 Pt Umr0401 INR 1.9 10/13/2016 Pt Jfw2749 Low Intensity - 1.5-2.0 10/13/2016 Pt Qcj1249 Mod intensity - 2.0-3.0 10/13/2016 Pt Yck6730 Hi intensity - 3.0-4.0 10/13/2016 Pt Toa9466 PT 26.5 seconds 10/01/2016 Pt Zgx3889 INR 2.6 10/01/2016 Pt Doe0150 Low Intensity - 1.5-2.0 10/01/2016 Pt Sva4990 Mod intensity - 2.0-3.0 10/01/2016 Pt Gyk9215 Hi intensity - 3.0-4.0 10/01/2016 Pt Rit7600 PT 24.6 seconds 09/14/2016 Pt Gqp1717 INR 2.4 09/14/2016 Pt Bzg6655 Low Intensity - 1.5-2.0 09/14/2016 Pt Gzq5865 Mod intensity - 2.0-3.0 09/14/2016 Pt Tjq5410 Hi intensity - 3.0-4.0 09/14/2016 Pt Oxt8553 PT 18.0 seconds 09/07/2016 Pt Jnk6339 INR 1.6 09/07/2016 Pt Tbo9754 Low Intensity - 1.5-2.0 09/07/2016 Pt Jrx5795 Mod intensity - 2.0-3.0 09/07/2016 Pt Wui6654 Hi intensity - 3.0-4.0 09/07/2016 Pt Anh9233 PT 23.7 seconds 08/12/2016 Pt Ydm0245 INR 2.2 08/12/2016 Pt Iwz3773 Low Intensity - 1.5-2.0 08/12/2016 Pt Dgq2817 Mod intensity - 2.0-3.0 08/12/2016 Pt Ptu0435 Hi intensity - 3.0-4.0 08/12/2016 Pt Dnp3087 PT 21.6 seconds 07/27/2016 Pt Wmt8428 INR 2.0 07/27/2016 Pt Tas8577 Low Intensity - 1.5-2.0 07/27/2016 Pt Jos8756 Mod intensity - 2.0-3.0 07/27/2016 Pt Fvx5174 Hi intensity - 3.0-4.0 07/27/2016 Pt Fcf0442 PT 26.0 seconds 06/15/2016 Pt Myr6507 INR 2.5 06/15/2016 Pt Zjp6361 Low Intensity - 1.5-2.0 06/15/2016 Pt Lnh1728 Mod intensity - 2.0-3.0 06/15/2016 Pt Qcb6092 Hi intensity - 3.0-4.0 06/15/2016 Pt Kyl2367 PT 18.8 seconds 06/01/2016 Pt Pio2682 INR 1.7 06/01/2016 Pt Ywv3594 Low Intensity - 1.5-2.0 06/01/2016 Pt Vpz1188 Mod intensity - 2.0-3.0 06/01/2016 Pt Vki0474 Hi intensity - 3.0-4.0 06/01/2016 Pt Hqn3697 PT 20.8 seconds 05/12/2016 Pt Ieh5420 INR 1.9 05/12/2016 Pt Eca6417 Low Intensity - 1.5-2.0 05/12/2016 Pt Tcv0129 Mod intensity - 2.0-3.0 05/12/2016 Pt Nox9241 Hi intensity - 3.0-4.0 05/12/2016 Pt Ydu9263 PT 24.5 seconds 04/10/2016 Pt Pnx3407 INR 2.4 04/10/2016 Pt Pkw3749 Low Intensity - 1.5-2.0 04/10/2016 Pt Vky1417 Mod intensity - 2.0-3.0 04/10/2016 Pt Ywc0093 Hi intensity - 3.0-4.0 04/10/2016 Pt Imv6018 PT 26.4 seconds 03/10/2016 Pt Mfx8964 INR 2.6 03/10/2016 Pt Ebv4622 Low Intensity - 1.5-2.0 03/10/2016 Pt Whn2802 Mod intensity - 2.0-3.0 03/10/2016 Pt Suy4218 Hi intensity - 3.0-4.0 03/10/2016 Pt Dhf4772 PT 24.9 seconds 03/06/2016 Pt Mcm4251 INR 2.4 03/06/2016 Pt Ttn7190 Low Intensity - 1.5-2.0 03/06/2016 Pt Uxx6059 Mod intensity - 2.0-3.0 03/06/2016 Pt Tsx3240 Hi intensity - 3.0-4.0 03/06/2016 Pt Rsg2830 PT 21.9 seconds 02/25/2016 Pt Wtm1566 INR 2.0 02/25/2016 Pt Pso4938 Low Intensity - 1.5-2.0 02/25/2016 Pt Ihi8851 Mod intensity - 2.0-3.0 02/25/2016 Pt Ilk1291 Hi intensity - 3.0-4.0 02/25/2016 Pt Zxh0631 PT 21.8 seconds 02/21/2016 Pt Rfp3515 INR 2.0 02/21/2016 Pt Oqt5316 Low Intensity - 1.5-2.0 02/21/2016 Pt Pwn0891 Mod intensity - 2.0-3.0 02/21/2016 Pt Izj4456 Hi intensity - 3.0-4.0 02/21/2016 Culture Urine [id number] URI NE CULTURE SEE NOTES 02/20/2016 Culture Urine [id number] Con tinued Results 02/20/2016 Urine Culture Ucult [...] 29.2 pg 02/14/2016 Cbc With Differential Ord2 [place]% 9.3 % 02/14/2016 Cbc With Differential Ord2 [...] 2.55 K/ul 02/14/2016 Cbc With Differential Ord2 [place] ABS# 0.8 K/ul 02/14/2016 Cbc With Differential Ord2 E[place] ABS# 0.4 K/ul 02/14/2016 Cbc With Differential Ord2 Baso ABS# 0.1 K/ul 02/14/2016 Tsh Ord6 hTSH II 0.80 uIU/mL 02/14/2016 Pt Ybd5074 PT 27.1 seconds 02/14/2016 Pt Twx7596 INR 2.7 02/14/2016 Pt Ump3912 Low Intensity - 1.5-2.0 02/14/2016 Pt Hvb3648 Mod intensity - 2.0-3.0 02/14/2016 Pt Twy9009 Hi intensity - 3.0-4.0 02/14/2016 Free T4 Vem372 FREE T4 1.87 ng/dL 02/14/2016 Comp Metabolic Had668 NA 139 mEq/L 02/14/2016 Comp Metabolic Btf722 K 3.8 mEq/L 02/14/2016 Comp Metabolic Xoj093 CL 103 mEq/L 02/14/2016 Comp Metabolic Qhb808 CO2 27.0 mEq/L 02/14/2016 Comp Metabolic Ajw086 AN ION GAP 13 02/14/2016 Comp Metabolic Xff051 GL UCOSE 91 mg/dL 02/14/2016 Comp Metabolic Ljc271 Cr eat 1.0 mg/dL 02/14/2016 Comp Metabolic Wcw971 eG FR 58 ml/min/1.73m2 02/13 Comp Metabolic Gzr932 BUN 16 mg/dL 02/14/2016 Comp Metabolic Yey823 B/ C Ratio 16.2 Ratio 02/14/2016 Comp Metabolic Vtj792 CA LCIUM 9.0 mg/dL 02/14/2016 Comp Metabolic Vnm365 AL K PHOS 88 U/L 02/14/2016 Comp Metabolic Jgk782 T(SGOT) 17 U/L 02/14/2016 Comp Metabolic Nws458 AL T(SGPT) 12 U/L 02/14/2016 Comp Metabolic Mxs923 BI LI T 0.6 mg/dL 02/14/2016 Comp Metabolic Jag041 AL BUMIN 3.2 g/dL 02/14/2016 Comp Metabolic Vpu497 TP RO 5.8 g/dL 02/14/2016 Comp Metabolic Ack264 GL OB 2.6 g/dL 02/14/2016 Comp Metabolic Rst331 A/ G Ratio 1.3 Ratio 02/14/2016 Comp Metabolic Rpq959 Os mo 278 mOsmo 02/14/2016 Pt Sty7084 PT 34.6 seconds 02/06/2016 Pt Igg6943 INR 3.7 02/06/2016 Pt Zig0984 Low Intensity - 1.5-2.0 02/06/2016 Pt Nqm1835 Mod intensity - 2.0-3.0 02/06/2016 Pt Ajo2221 Hi intensity - 3.0-4.0 02/06/2016 Pt Cey2070 PT 33.3 seconds 01/23/2016 Pt Zcr4431 INR 3.5 01/23/2016 Pt Esj2063 Low Intensity - 1.5-2.0 01/23/2016 Pt Fxo7572 Mod intensity - 2.0-3.0 01/23/2016 Pt Qri9671 Hi intensity - 3.0-4.0 01/23/2016 Pt Yql4253 PT 30.5 seconds 12/31/2015 Pt Wyc8469 INR 3.2 12/31/2015 Pt Dhy4397 Low Intensity - 1.5-2.0 12/31/2015 Pt Sdx0349 Mod intensity - 2.0-3.0 12/31/2015 Pt Ygw0152 Hi intensity - 3.0-4.0 12/31/2015 Pt Wdc6715 PT 35.6 seconds 12/25/2015 Pt Ajs8421 INR 3.9 12/25/2015 Pt Qpn3217 Low Intensity - 1.5-2.0 12/25/2015 Pt Ucf1656 Mod intensity - 2.0-3.0 12/25/2015 Pt Wno4800 Hi intensity - 3.0-4.0 12/25/2015 Pt Bda8737 PT 30.8 seconds 11/21/2015 Pt Sgj6240 INR 3.2 11/21/2015 Pt Zbz0410 Low Intensity - 1.5-2.0 11/21/2015 Pt Ooi8593 Mod intensity - 2.0-3.0 11/21/2015 Pt Luk6063 Hi intensity - 3.0-4.0 11/21/2015 Uric Acid [...] 30.0 pg 11/20/2015 Cbc With Differential Ord2 [place]% 8.1 % 11/20/2015 Cbc With Differential Ord2 [...] 2.51 K/ul 11/20/2015 Cbc With Differential Ord2 [place] ABS# 0.9 K/ul 11/20/2015 Cbc With Differential Ord2 Eos ABS# 0.3 K/ul 11/20/2015 Cbc With Differential Ord2 Baso ABS# 0.0 K/ul 11/20/2015 Comp Metabolic Gis937 NA 137 mEq/L 10/22/2015 Comp Metabolic Vog764 K 3.9 mEq/L 10/22/2015 Comp Metabolic Tsp988 CL 100 mEq/L 10/22/2015 Comp Metabolic Gar510 CO2 31.0 mEq/L 10/22/2015 Comp Metabolic Fol790 AN ION GAP 10 10/22/2015 Comp Metabolic Ixs146 GL UCOSE 94 mg/dL 10/22/2015 Comp Metabolic Xxj798 Cr eat 1.0 mg/dL 10/22/2015 Comp Metabolic Jac661 eG FR 55 ml/min/1.73m2 10/21 Comp Metabolic Ker644 BUN 19 mg/dL 10/22/2015 Comp Metabolic Mck207 B/ C Ratio 18.3 Ratio 10/22/2015 Comp Metabolic Zrj775 CA LCIUM 8.8 mg/dL 10/22/2015 Comp Metabolic Ltq508 AL K PHOS 83 U/L 10/22/2015 Comp Metabolic Kky927 T(SGOT) 15 U/L 10/22/2015 Comp Metabolic Uuz853 AL T(SGPT) 13 U/L 10/22/2015 Comp Metabolic Rlr196 BI LI T 0.9 mg/dL 10/22/2015 Comp Metabolic Rft833 AL BUMIN 2.8 g/dL 10/22/2015 Comp Metabolic Aiy991 TP RO 5.4 g/dL 10/22/2015 Comp Metabolic Hsj375 GL OB 2.6 g/dL 10/22/2015 Comp Metabolic Aey378 A/ G Ratio 1.1 Ratio 10/22/2015 Comp Metabolic Ujm762 Os mo 276 mOsmo 10/22/2015 Bili D Ord93 BILI D 0.1 mg/dL 10/22/2015 Bili D Ord93 BILI I 0.8 mg/dL 10/22/2015 Pt Cya5565 PT 22.8 seconds 10/22/2015 Pt Nkp3815 INR 2.1 10/22/2015 Pt Pio3477 Low Intensity - 1.5-2.0 10/22/2015 Pt Prl2852 Mod intensity - 2.0-3.0 10/22/2015 Pt Vji7980 Hi intensity - 3.0-4.0 10/22/2015 Pt Ifh4088 PT 28.0 seconds 09/16/2015 Pt Mlh7526 INR 2.7 09/16/2015 Pt Soc5645 Low Intensity - 1.5-2.0 09/16/2015 Pt Iil6483 Mod intensity - 2.0-3.0 09/16/2015 Pt Nfn4033 Hi intensity - 3.0-4.0 09/16/2015 Tsh Ord6 hTSH II 1.40 uIU/mL 09/16/2015 Free T4 Mdt931 FREE T4 1.73 ng/dL 09/16/2015 Lipid Ord30 CHOL 169 mg/dL 09/16/2015 Lipid Ord30 HDL 66.0 mg/dl 09/16/2015 Lipid Ord30 TRIG 78 mg/dL 09/16/2015 Lipid Ord30 LDL 87 mg/dL 09/16/2015 Lipid Ord30 C/HDL 2.6 Ratio 09/16/2015 Pt Ggw6395 PT 26.6 seconds 08/21/2015 Pt Tro4015 INR 2.6 08/21/2015 Pt Aqg2425 Low Intensity - 1.5-2.0 08/21/2015 Pt Dzy9439 Mod intensity - 2.0-3.0 08/21/2015 Pt Mpn9012 Hi intensity - 3.0-4.0 08/21/2015 Comp Metabolic Dva860 NA 141 mEq/L 08/08/2015 Comp Metabolic Yaf262 K 3.3 mEq/L 08/08/2015 Comp Metabolic Pmt699 CL 102 mEq/L 08/08/2015 Comp Metabolic Fbi149 CO2 31.0 mEq/L 08/08/2015 Comp Metabolic Qml539 AN ION GAP 11 08/08/2015 Comp Metabolic Eax893 GL UCOSE 83 mg/dL 08/08/2015 Comp Metabolic Rto614 Cr eat 1.0 mg/dL 08/08/2015 Comp Metabolic Pvo414 eG FR 55 ml/min/1.73m2 08/08 Comp Metabolic Qna146 BUN 19 mg/dL 08/08/2015 Comp Metabolic Dwz393 B/ C Ratio 18.3 Ratio 08/08/2015 Comp Metabolic Vos190 CA LCIUM 8.9 mg/dL 08/08/2015 Comp Metabolic Kii990 AL K PHOS 84 U/L 08/08/2015 Comp Metabolic Vto236 T(SGOT) 20 U/L 08/08/2015 Comp Metabolic Hyi323 AL T(SGPT) 18 U/L 08/08/2015 Comp Metabolic Pxz527 BI LI T 0.6 mg/dL 08/08/2015 Comp Metabolic Coq942 AL BUMIN 3.3 g/dL 08/08/2015 Comp Metabolic Lim362 TP RO 5.9 g/dL 08/08/2015 Comp Metabolic Fkn065 GL OB 2.6 g/dL 08/08/2015 Comp Metabolic Duz409 A/ G Ratio 1.3 Ratio 08/08/2015 Comp Metabolic Tsh909 Os mo 283 mOsmo 08/08/2015 Cbc With [...] 30.0 pg 08/08/2015 Cbc With Differential Ord2 [place]% 8.2 % 08/08/2015 Cbc With Differential Ord2 [...] 2.90 K/ul 08/08/2015 Cbc With Differential Ord2 [place] ABS# 0.9 K/ul 08/08/2015 Cbc With Differential [...] Ord93 BILI I 0.5 mg/dL 08/08/2015 Pt Wzu9946 PT 31.8 seconds 08/05/2015 Pt Mdm3523 INR 3.2 08/05/2015 Pt Rus1741 Low Intensity - 1.5-2.0 08/05/2015 Pt Kyt0793 Mod intensity - 2.0-3.0 08/05/2015 Pt Cse7670 Hi intensity - 3.0-4.0 08/05/2015 Pt Wct0706 PT 27.4 seconds 06/27/2015 Pt Ftz4990 INR 2.6 06/27/2015 Pt Vxv6641 Low Intensity - 1.5-2.0 06/27/2015 Pt Zcz5186 Mod intensity - 2.0-3.0 06/27/2015 Pt Icz8837 Hi intensity - 3.0-4.0 06/27/2015 Tsh Ord6 [...] Ord2 RDW 15.1 % 05/31/2015 Free T4 Dge938 FREE T4 1.89 ng/dL 05/31/2015 Comp Metabolic Ylf655 NA 140 mEq/L 05/31/2015 Comp Metabolic Yzr862 K 3.3 mEq/L 05/31/2015 Comp Metabolic Tdv057 CL 99 mEq/L 05/31/2015 Comp Metabolic Dri759 CO2 30.0 mEq/L 05/31/2015 Comp Metabolic Nxe524 AN ION GAP 14 05/31/2015 Comp Metabolic Btw822 GL UCOSE 70 mg/dL 05/31/2015 Comp Metabolic Eur409 Cr eat 1.0 mg/dL 05/31/2015 Comp Metabolic Rks936 eG FR 55 ml/min/1.73m2 05/31 Comp Metabolic Pln413 BUN 23 mg/dL 05/31/2015 Comp Metabolic Ivp494 B/ C Ratio 22.1 Ratio 05/31/2015 Comp Metabolic Fcl227 CA LCIUM 8.9 mg/dL 05/31/2015 Comp Metabolic Mvl182 AL K PHOS 86 U/L 05/31/2015 Comp Metabolic Ydm623 T(SGOT) 28 U/L 05/31/2015 Comp Metabolic Obr175 AL T(SGPT) 30 U/L 05/31/2015 Comp Metabolic Wya105 BI LI T 0.4 mg/dL 05/31/2015 Comp Metabolic Dpb812 AL BUMIN 3.3 g/dL 05/31/2015 Comp Metabolic Qcv043 TP RO 6.0 g/dL 05/31/2015 Comp Metabolic Rfe904 GL OB 2.7 g/dL 05/31/2015 Comp Metabolic Cjx265 A/ G Ratio 1.2 Ratio 05/31/2015 Comp Metabolic Ypv596 Os mo 282 mOsmo 05/31/2015 Pt Ejc4624 PT 23.3 seconds 04/15/2015 Pt Tew8364 INR 2.2 04/15/2015 Pt Lqf4854 Low Intensity - 1.5-2.0 04/15/2015 Pt Kkp1081 Mod intensity - 2.0-3.0 04/15/2015 Pt Qyz2447 Hi intensity - 3.0-4.0 04/15/2015 Pt Dxp0271 PT 19.5 seconds 04/04/2015 Pt Zkq9886 INR 1.7 04/04/2015 Pt Tmw7232 Low Intensity - 1.5-2.0 04/04/2015 Pt Kpc0105 Mod intensity - 2.0-3.0 04/04/2015 Pt Pbz3432 Hi intensity - 3.0-4.0 04/04/2015 Pt Esa8004 PT 39.8 seconds 04/01/2015 Pt Bic3608 INR 4.3 04/01/2015 Pt Yii0633 Low Intensity - 1.5-2.0 04/01/2015 Pt Upt0772 Mod intensity - 2.0-3.0 04/01/2015 Pt Uqa8409 Hi intensity - 3.0-4.0 04/01/2015 Metabolic Ord15 [...] Metabolic Ord15 CALCIUM 8.7 mg/dL 02/28/2015 Pt Ivq5505 PT 31.4 seconds 02/28/2015 Pt Uyj1482 INR 3.2 02/28/2015 Pt Meu6741 Low Intensity - 1.5-2.0 02/28/2015 Pt Boc3144 Mod intensity - 2.0-3.0 02/28/2015 Pt Yuv9279 Hi intensity - 3.0-4.0 02/28/2015 Pt Pnk4053 PT 23.2 seconds 01/18/2015 Pt Bxv0461 INR 2.1 01/18/2015 Pt Qja2613 Low Intensity - 1.5-2.0 01/18/2015 Pt Rab1532 Mod intensity - 2.0-3.0 01/18/2015 Pt Cns3276 Hi intensity - 3.0-4.0 01/18/2015 Pt Rvj5293 PT 18.2 seconds 01/10/2015 Pt Hgc5077 INR 1.6 01/10/2015 Pt Njg0369 Low Intensity - 1.5-2.0 01/10/2015 Pt Jhq1774 Mod intensity - 2.0-3.0 01/10/2015 Pt Mdv5785 Hi intensity - 3.0-4.0 01/10/2015 Review of Systems System Result Effective Dates Constitutional No recent illness 11/17/2018 Constitutional No [...] lips 08/16/2018 None Full Exam - General 1995 Ears/Nose/Throat lips/teeth/gingiva Overall: normal dentition 08/16/2018 None Full Exam - General 1995 Ears/Nose/Throat lips/teeth/gingiva Overall: benign gingiva 08/16/2018 None [...] neck 11/20/2014 None Procedures Procedure Codes Date ROCEPHIN, PER 250 MG CPT-4: J0696 10/27/2018 URINALYSIS NONAUTO W /O SCOPE CPT-4: 51078 10/27/2018 ADMIN INFLUENZA VIRU S VAC CPT-4: G0008 03/24/2018 ADMIN PNEUMOCOCCAL V ACCINE SNOMED CT: 43434766 CPT-4: G0009 03/24/2018 FLU VACC PRSV FREE I NC ANTIG Formatting Model/CDA Sections, Assigned to/Dorothea Tan CPT-4: 81328Mcrbxxd 03/24/2018 Pneumococcal Polysac charide Vaccine, 23-Valent, Ad CPT-4: 47507 03/24/2018 TRIAMCINOLONE ACET I [place] NOS CPT-4: J3301 06/15/2017 THER/PROPH/DIAG INJ SC/IM CPT-4: 78617 06/15/2017 ADMIN PNEUMOCOCCAL V ACCINE SNOMED CT: [id number] CPT-4: G0009 03/16/2017 ADMIN INFLUENZA VIRU S VAC CPT-4: G0008 03/16/2017 FLU VAC NO PRSV 4 VA L 3 YRS+ CPT-4: 77601 03/16/2017 PNEUMOCOCCAL VACC [address]: 73725553 CPT-4: 26091 03/16/2017 URINALYSIS NONAUTO W /O SCOPE CPT-4: 01302 08/26/2016 THER/PROPH/DIAG INJ SC/IM CPT-4: 97857 07/22/2016 TRIAMCINOLONE ACET I [place] NOS CPT-4: J3301 07/22/2016 ROCEPHIN, PER 250 MG CPT-4: J0696 07/22/2016 TRIAMCINOLONE ACET I [place] NOS CPT-4: J3301 02/05/2015 Vital Signs Date Vital 11/17/2018 Blood Pressure 1: 102/62 Code: 8480-6 BMI: 32.4 Code: 22933-2 Heart Rate 1: 83 bpm Height: 5'7" SpO2: 94% Weight: 207 lbs 10/27/2018 Blood Pressure 1: 120/74 Code: 8480-6 BMI: 32.4 Code: 22631-9 Heart Rate 1: 65 bpm Height: 5'7" SpO2: 97% Weight: 207 lbs 09/27/2018 Blood Pressure 1: 128/74 Code: 8480-6 BMI: 32.4 Code: 88215-8 Heart Rate 1: 92 bpm Height: 5'7" SpO2: 97% Weight: 207 lbs 08/16/2018 Blood Pressure 1: 104/66 Code: 8480-6 BMI: 32.3 Code: 61040-4 Heart Rate 1: 94 bpm Height: 5'7" SpO2: 96% Weight: 206 lbs 07/11/2018 Blood Pressure 1: 102/68 Code: 8480-6 BMI: 34.5 Code: 98340-5 Heart Rate 1: 101 bpm Height: 5'7" SpO2: 98% Weight: 220 lbs 03/24/2018 Blood Pressure 1: 130/72 Code: 8480-6 BMI: 33.4 Code: 48018-9 Heart Rate 1: 82 bpm Height: 5'7" SpO2: 93% Weight: 213 lbs 11/18/2017 Blood Pressure 1: 128/70 Code: 8480-6 BMI: 33.6 Code: 30094-2 Heart Rate 1: 98 bpm Height: 5'7" SpO2: 97% Weight: 214 lbs 8 oz 09/30/2017 Blood Pressure 1: 100/50 Code: 8480-6 BMI: 34.0 Code: 39098-7 Heart Rate 1: 66 bpm Height: 5'7" SpO2: 96% Weight: 217 lbs 08/17/2017 Blood Pressure 1: 104/60 Code: 8480-6 BMI: 33.7 Code: 30646-6 Heart Rate 1: 99 bpm Height: 5'7" SpO2: 97% Weight: 215 lbs 06/15/2017 Blood Pressure 1: 120/64 Code: 8480-6 BMI: 33.5 Code: 83207-0 Heart Rate 1: 91 bpm Height: 5'7" SpO2: 94% Weight: 214 lbs 04/01/2017 Blood Pressure 1: 110/68 Code: 8480-6 BMI: 154.4 Code: 91309-0 Heart Rate 1: 66 bpm Height: 2'7" SpO2: 95% Weight: 211 lbs 03/16/2017 Blood Pressure 1: 130/72 Code: 8480-6 BMI: 33.0 Code: 47111-7 Heart Rate 1: 95 bpm Height: 5'7" SpO2: 97% Weight: 211 lbs 02/09/2017 Blood Pressure 1: 120/70 Code: 8480-6 BMI: 32.9 Code: 19518-3 Heart Rate 1: 78 bpm Height: 5'7" SpO2: 96% Weight: 210 lbs 10/13/2016 Blood Pressure 1: 118/76 Code: 8480-6 BMI: 32.6 Code: 95782-6 Heart Rate 1: 97 bpm Height: 5'7" SpO2: 98% Weight: 208 lbs 07/31/2016 Blood Pressure 1: 110/64 Code: 8480-6 BMI: 32.1 Code: 22565-6 Heart Rate 1: 79 bpm Height: 5'7" SpO2: 94% Weight: 205 lbs 07/22/2016 Blood Pressure 1: 108/74 Code: 8480-6 BMI: 32.1 Code: 68630-2 Heart Rate 1: 71 bpm Height: 5'7" SpO2: 97% Temperature: 36.9 (C ) / 98.4 (F) Weight: 205 lbs 05/01/2016 Blood Pressure 1: 120/72 Code: 8480-6 BMI: 32.7 Code: 52897-8 Heart Rate 1: 75 bpm Height: 5'7" SpO2: 94% Weight: 209 lbs 04/06/2016 Blood Pressure 1: 106/62 Code: 8480-6 BMI: 32.7 Code: 44565-4 Heart Rate 1: 83 bpm Height: 5'7" SpO2: 97% Weight: 209 lbs 03/06/2016 Blood Pressure 1: 112/68 Code: 8480-6 BMI: 32.7 Code: 55016-3 Heart Rate 1: 90 bpm Height: 5'7" SpO2: 97% Weight: 209 lbs 03/03/2016 Blood Pressure 1: 120/62 Code: 8480-6 BMI: 32.7 Code: 58388-4 Heart Rate 1: 92 bpm Height: 5'7" SpO2: 98% Weight: 209 lbs 02/07/2016 Blood Pressure 1: 110/64 Code: 8480-6 BMI: 32.7 Code: 74235-4 Heart Rate 1: 87 bpm Height: 5'7" SpO2: 97% Weight: 209 lbs 12/13/2015 Blood Pressure 1: 110/64 Code: 8480-6 BMI: 33.5 Code: 92898-8 Heart Rate 1: 90 bpm Height: 5'7" SpO2: 97% Weight: 214 lbs 12/03/2015 Blood Pressure 1: 132/76 Code: 8480-6 BMI: 33.4 Code: 79687-8 Heart Rate 1: 82 bpm Height: 5'7" SpO2: 99% Weight: 213 lbs 11/20/2015 Blood Pressure 1: 108/68 Code: 8480-6 BMI: 32.4 Code: 78130-6 Heart Rate 1: 77 bpm Height: 5'7" SpO2: 97% Weight: 207 lbs 09/17/2015 Blood Pressure 1: 122/76 Code: 8480-6 BMI: 33.0 Code: 61628-9 Heart Rate 1: 91 bpm Height: 5'7" SpO2: 97% Weight: 211 lbs 05/31/2015 Blood Pressure 1: 128/82 Code: 8480-6 BMI: 33.4 Code: 77495-6 Heart Rate 1: 98 bpm Height: 5'7" SpO2: 99% Weight: 213 lbs 02/05/2015 Blood Pressure 1: 128/80 Code: 8480-6 BMI: 32.6 Code: 34671-3 Heart Rate 1: 86 bpm Height: 5'7" SpO2: 97% Weight: 208 lbs 11/20/2014 Blood Pressure 1: 128/90 Code: 8480-6 BMI: 30.9 Code: 28939-0 Heart Rate 1: 94 bpm Height: 5'7" Weight: 197 lbs Functional Status No Functional Status data History of Present Illness Symptom Name Status Resu lt Effective Date Notes Location on the right leg 11/17/2018 None [...] Findings Denies fever 05/31/2015 None hypothyroid 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 P ATIENT, LEVEL III Diagnosis: Contusion of right lower leg, initial encounter[ICD10: S80.11XA] Diagnosis: director of radiology (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[ICD10: Z79.01] [facility] CPT-4: 82167 11/17/2018 [id number] EST. P ATIENT, LEVEL III Diagnosis: Urinary tract infection, site not specified[ICD10: N39.0] [facility] CPT-4: 67632 10/27/2018 [id number]) [id number] EST. P ATIENT, LEVEL IV Diagnosis: Atrophy of thyroid (acquired)[ICD10: E03.4] Diagnosis: Essential (primary) hypertension[ICD10: I10] Diagnosis: Other allergic rhinitis[ICD10: J30.89] Diagnosis: Other skin changes[ICD10: R23.8] Diagnosis: Chronic atrial fibrillation[ICD10: I48.2] Diagnosis: director of radiology (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[ICD10: Z79.01] Valerie P[facility]ano [facility] CPT-4: 34243 09/27/2018 ([id number]) [id number] EST. P ATIENT, LEVEL IV Diagnosis: Essential (primary) hypertension[ICD10: I10] Diagnosis: Atrophy of thyroid (acquired)[ICD10: E03.4] Diagnosis: Sebaceous cyst[ICD10: L72.3] Diagnosis: Chronic atrial fibrillation[ICD10: I48.2] Diagnosis: director of radiology (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[ICD10: Z79.01] Valerie [facility] CPT-4: 80555 08/16/2018 ([id number]) 48189 EST. P ATIENT, LEVEL IV Diagnosis: Atrophy of thyroid (acquired)[ICD10: E03.4] Diagnosis: Essential (primary) hypertension[ICD10: I10] Diagnosis: Other fatigue[ICD10: R53.83] Diagnosis: Localized edema[ICD10: R60.0] Valerie Pisano MD, [facility] CPT-4: 56726 07/11/2018 ([id number]) 06814 EST. P ATIENT, LEVEL IV Diagnosis: Essential (primary) hypertension[ICD10: I10] Diagnosis: Atrophy of thyroid (acquired)[ICD10: E03.4] Diagnosis: Chronic atrial fibrillation[ICD10: I48.2] Valerie P[facility] CPT-4: 63477 03/24/2018 ([id number]) [id number] EST. P ATIENT, LEVEL IV Diagnosis: Essential (primary) hypertension[ICD10: I10] Diagnosis: Atrophy of thyroid (acquired)[ICD10: E03.4] Diagnosis: Chronic atrial fibrillation[ICD10: I48.2] Valerie P[facility] CPT-4: 08872 11/18/2017 [id number] EST. PATIENT, LEVEL IV Diagnosis: Localized edema[ICD10: R60.0] Roxie Pisano MD, [facility] CPT-4: 94767 09/30/2017 ([id number]) 64543 EST. P ATIENT, LEVEL III Diagnosis: Essential (primary) hypertension[ICD10: I10] Valerie Pisano MD, [facility] CPT-4: 29806 08/17/2017 ([id number]) 70108 EST. P ATIENT, LEVEL IV Diagnosis: Essential (primary) hypertension[ICD10: I10] Diagnosis: Atrophy of thyroid (acquired)[ICD10: E03.4] Diagnosis: Chronic atrial fibrillation[ICD10: I48.2] Diagnosis: Cervicalgia[ICD10: M54.2] Diagnosis: Other muscle spasm[ICD10: M62.838] Valerie Pisano MD, [facility] CPT- 4: 16375 06/15/2017 36414 EST. PATIENT, LEVEL III Diagnosis: Laceration without foreign body of other finger without damage to nail, initial encounter[ICD10: S61.218A] Roxie Pisano MD, [facility] CPT-4: 64096 04/01/2017 ([id number]) 35190 EST. P ATIENT, LEVEL IV Diagnosis: Chronic atrial fibrillation[ICD10: I48.2] Diagnosis: detention (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[ICD10: Z79.01] Diagnosis: Encounter for immunization[ICD10: Z23] Diagnosis: Atrophy of thyroid (acquired)[ICD10: E03.4] Valerie Pisano MD, C CPT-4: 05133 03/16/2017 ([id number]) 02059 EST. P ATIENT, LEVEL IV Diagnosis: Chronic atrial fibrillation[ICD10: I48.2] Diagnosis: Essential (primary) hypertension[ICD10: I10] Diagnosis: Other fatigue[ICD10: R53.83] Diagnosis: detention (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[ICD10: Z79.01] Diagnosis: Atrophy of thyroid (acquired)[ICD10: E03.4] Valerie Pisano MD, [facility] CPT-4: 14832 02/09/2017 ([id number]) 16256 EST. P ATIENT, LEVEL IV Diagnosis: Essential (primary) hypertension[ICD10: I10] Diagnosis: Chronic atrial fibrillation[ICD10: I48.2] Diagnosis: Tinea corporis[ICD10: B35.4] Diagnosis: detention (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[ICD10: Z79.01] Diagnosis: Other skin changes[ICD10: R23.8] Valerie Pisano MD, [facility] CPT-4: 18302 10/13/2016 43539 EST. PATIENT, LEVEL III Diagnosis: Other acute sinusitis[ICD10: J01.80] Diagnosis: Other allergic rhinitis[ICD10: J30.89] Roxie Pisano MD, [facility] CPT-4: 96892 07/31/2016 ([id number]) 36368 EST. P ATIENT, LEVEL III Diagnosis: Acute recurrent maxillary sinusitis[ICD10: J01.01] Valerie Pisano MD [facility] CPT-4: 05670 07/22/2016 73812 EST. PATIENT, LEVEL IV Diagnosis: Essential (primary) hypertension[ICD10: I10] Diagnosis: Other allergic rhinitis[ICD10: J30.89] Diagnosis: Localized edema[ICD10: R60.0] Roxie Pisano MD, [facility] CPT-4: 31023 05/01/2016 03030 EST. PATIENT, LEVEL III Diagnosis: Cellulitis of left lower limb[ICD10: L03.116] Diagnosis: Localized edema[ICD10: R60.0] Roxie Pisano MD, [facility] CPT-4: 42340 04/06/2016 ([id number]) Miscellaneou s no charge Diagnosis: Cellulitis of left lower limb[ICD10: L03.116] Diagnosis: Localized edema[ICD10: R60.0] Roxie Pisano MD, [facility] CPT-4: 48369 03/10/2016 ([id number]) Miscellaneou s no charge Diagnosis: Cellulitis of left lower limb[ICD10: L03.116] Roxie Pisano MD, [facility] CPT-4: 60776 03/06/2016 40681 EST. PATIENT, LEVEL IV Diagnosis: Cellulitis of left lower limb[ICD10: L03.116] Diagnosis: Localized edema[ICD10: R60.0] Roxie Pisano MD, [facility] CPT-4: 43597 03/03/2016 ([id number]) 59487 EST. P ATIENT, LEVEL III Diagnosis: Essential (primary) hypertension[ICD10: I10] Diagnosis: director of radiology (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[ICD10: Z79.01] Diagnosis: Chronic atrial fibrillation[ICD10: I48.2] Brielle Pisano MD, [facility] CPT-4: 80559 02/07/2016 ([id number]) 60948 EST. P ATIENT, LEVEL III Diagnosis: Iliotibial band syndrome, right leg[ICD10: M76.31] Diagnosis: Localized edema[ICD10: R60.0] Brielle Pisano MD, [facility] CPT- 4: 21249 12/13/2015 ([id number]) 50031 EST. P ATIENT, LEVEL III Diagnosis: Localized edema[ICD10: R60.0] Diagnosis: Essential (primary) hypertension[ICD10: I10] Brielle Pisano MD, [facility] CPT-4: 90787 12/03/2015 ([id number]) 02924 EST. P ATIENT, LEVEL IV Diagnosis: director of radiology (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[ICD10: Z79.01] Diagnosis: Other skin changes[ICD10: R23.8] Diagnosis: Localized edema[ICD10: R60.0] Diagnosis: Pain in right foot[ICD10: M79.671] Valerie Pisano MD, [facility] CPT- 4: 66114 11/20/2015 68774 EST. PATIENT, LEVEL IV Diagnosis: Essential (primary) hypertension[ICD10: I10] Diagnosis: detention (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[ICD10: Z79.01] Diagnosis: Muscle spasm of back[ICD10: M62.830] Roxie Pisano MD, [facility] CPT- 4: 67650 09/17/2015 ([id number]) 36023 EST. P ATIENT, LEVEL IV Diagnosis: Localized edema[ICD10: R60.0] Diagnosis: Other specified hypothyroidism[ICD10: E03.8] Diagnosis: Essential (primary) hypertension[ICD10: I10] Brielle Pisano MD, [facility] CPT-4: 54528 05/31/2015 ([id number]) 76588 EST. P ATIENT, LEVEL III Diagnosis: ALLERGIC RHINITIS[ICD9: 477.9] Diagnosis: ESSENTIAL HYPERTENSION[ICD9: 401.9] [facility] CPT-4: 05580 02/05/2015 ([id number]) OFFICE SENA MASON - LEVEL 4 Diagnosis: ESSENTIAL HYPERTENSION[ICD9: 401.9] Diagnosis: HYPOTHYROIDISM[ICD9: 244.9] Diagnosis: ACTINIC KERATOSIS[ICD9: 702.0] [facility] CPT-4: 18028 11/20/2014 Plan of Care Planned Activity Notes C odes Status Date Visit Plan: Contusion -right lower leg -continue to monitor symptoms -call if does not resolve or other symptoms develop. Patient verbalized understanding of plan. director of radiology use of anti coagulants -check PT/INR 11/17/2018 Appointment: Brielle Cavazos WPtel: [address] [place] [address] (30 min) Complex 11/17/2018 Patient Education: Patient Medication Summary Completed 11/17/2018 Visit Plan: UTI - pt with positive urinalysis - culture sent if appropriate. Antibiotic electronically prescribed to pt's pharmacy of choice. Pt to call if symptoms do not improve. 10/27/2018 Appointment: Brielle Cavazos WPtel: [address] [place] [address] (10 min) Simple 10/27/2018 Patient Education: Patient [...] Hernandez. 09/27/2018 Appointment: Valerie Pisano WPtel: [phone] [facility] (15 min) Moderate 09/27/2018 Patient Education: Patient [...] daily. 08/16/2018 Appointment: Valerie Pisano WPtel: [phone] [facility] [place] (15 min) Moderate 08/16/2018 Patient Education: Patient Medication Summary Completed 08/16/2018 Patient Education: Hypertension Completed 08/16/2018 Patient Education: Patient Medication Summary Completed 07/29/2018 Appointment: [phone] [place] (15 min) Moderate 07/12/2018 Visit Plan: [...] daily. 07/11/2018 [facility]ment: [phone] [facility] (15 min) Moderate 07/11/2018 Patient Education: [...] today. 03/24/2018 Appointment: Valerie Pisano WPtel: [phone] [facility] (15 min) Moderate 03/24/2018 Patient Education: Patient Medication Summary Completed 03/24/2018 Patient Education: Hypertension Completed 03/24/2018 Visit Plan: Hypertension - sana padron - [...] of control. 11/18/2017 Appointment: Valerie Pisano WPtel: [address] [place], [place] [phone] (15 min) Moderate 11/18/2017 Patient Education: Patient Medication Summary Completed 11/18/2017 Referral: [facility] WPtel: [address] [facility]66[facility] Pt notified at appointment Appointment Confirmed 10/01/2017 [...] Boots 09/30/2017 Appointment: Roxie Cazares [facility]el[facility] [phone] [facility] (30 min) Complex 09/30/2017 Patient Education: Patient Medication Summary Completed 09/30/2017 Care Plan: Referral Order SNOMED-CT : [id number] Pending 09/30/2017 Visit Plan: Hypertension - well [...] this time. 08/17/2017 Appointment: Valerie P[facility]ano [facility]el[facility] [phone] [facility] (15 min) Moderate 08/17/2017 Patient Education: [...] muscles. allergies - kenalog 40mg im [employer] - lot # [id number] expires september 2018 06/15/2017 Visit Plan: Hypertension [...] muscles. 06/15/2017 Appointment: Valerie Pisano WPtel: [phone] [facility] (15 min) Moderate 06/15/2017 Patient Education: Patient Medication Summary Completed 06/15/2017 Care Plan: Referral Order SNOMED-CT : [id number] Pending 06/15/2017 Appointment: Nurse Visit 04/05/2017 Appointment: [...] booster. 04/01/2017 Appointment: Roxie Cazares WPtel: [phone] [facility] (15 min) Moderate 04/01/2017 Patient Education: [...] today 03/16/2017 Appointment: [facility] [phone] [facility] (15 min) Moderate 03/16/2017 Patient Education: [...] spray. 02/09/2017 Appointment: [facility] [phone] [facility] (15 min) Moderate 02/09/2017 Patient Education: [...] nystatin 10/13/2016 Appointment: Valerie Pisano WPtel: [phone] [facility] (15 min) Moderate 10/13/2016 Patient Education: Patient Medication Summary Completed 10/13/2016 Patient Education: Obesity Completed 10/13/2016 Patient Education: Hypertension Completed 10/13/2016 Care Plan: Urine Culture Pending 08/31/2016 Appointment: Roxie Cazares WPtel: [phone] [facility] Lab Draw 08/27/2016 Appointment: Nurse Visit [...] allergy spray. 07/31/2016 Appointment: Brielle Cavazos [facility]Ptel[facility] [phone] [phone] [place] (30 min) Complex 07/31/2016 Patient Education: Patient Medication Summary Completed 07/31/2016 Patient Education: Obesity Completed 07/31/2016 Visit Plan: Sinusitis - Pt has acut e infection - pain in face, maxillary region, Pt informed to use decongestant, RX given to patient, sinus rinses also recommended. Call if symptoms do not show improvement. 07/22/2016 Appointment: Valerie Pisano WPtel: [phone] [facility] (15 min) Moderate 07/22/2016 Patient Education: Patient [...] peripheral edema. 05/01/2016 Appointment: Brielle Cavazos WPtel: [phone] [phone] (30 min) Complex 05/01/2016 Patient Education: [...] peripheral edema. 04/06/2016 Appointment: Roxie Cazares WPtel: [phone] [facility] (30 min) Complex 04/06/2016 Patient Education: Patient Medication Summary Completed 04/06/2016 Patient Education: Obesity Completed 04/06/2016 Visit Plan: left foot - improved - pt finished with antibiotics - continue to monitor - notify clinic with any concerns. Repeat INR today. 03/10/2016 Appointment: Brielle Cavazos WPtel: [phone] (30 min) Complex 03/10/2016 Patient Education: Patient Medication Summary Completed 03/10/2016 Visit Plan: Cellulitis - continue w ith oral antibiotics as previously directed, return to clinic as previously directed, call for acute change in symptoms, worsening redness, warmth, discharge. 03/06/2016 Appointment: Brielle Cavazos WPtel: [phone] (15 min) Moderate 03/06/2016 Patient Education: Patient Medication Summary Completed 03/06/2016 Patient Education: Obesity Completed 03/06/2016 Visit Plan: Cellulitis - continue w ith oral antibiotics as previously directed, return to clinic as previously directed, call for acute change in symptoms, worsening redness, warmth, discharge. 03/03/2016 Appointment: Brielle Cavazos WPtel: [facility]4 [phone] (15 min) Moderate 03/03/2016 Patient Education: [...] Cavazos WPtel: [facility] [address] (30 min) Complex 02/07/2016 Patient Education: Patient Medication Summary Completed 02/07/2016 Patient Education: Obesity Completed 02/07/2016 Patient Education: Hypertension Completed 02/07/2016 Appointment: Brielle Cavazos WPtel: [facility]1 [address] (30 min) Complex 02/04/2016 Visit Plan: [...] Brielle Cavazos WPtel: [facility] [place] [phone] (15 min) Moderate 12/13/2015 Patient Education: Patient [...] Cavazos WPtel: [facility] [address] (30 min) Complex 12/03/2015 Patient Education: Patient [...] Hypertension Completed 02/05/2015 Appointment: Val[facility]Ptel[phone] [facility] (15 min) Moderate 01/29/2015 Visit Plan: [...] control. 11/20/2014 Appointment: Val[facility]el[facility] [phone] [facility] [place] (S) New Patient 11/20/2014 Patient Education: Patient Medication Summary Completed 11/20/2014 Patient Education: Hypertension Completed 11/20/2014 Patient Education: Patient Medication Summary Completed 10/19/2014 Referral: [facility] WPtel: Referral Appointment Requested Referral: [facility] [place] Referral Appointment Confirmed Instructions Comment . Edema [...] wound care for possible Unna Boots . Hypertension - wel l controlled - [...] the office. get blood work one w [facility] before next appt - fasting labs Decrease [...] back to one pill twice daily. . Contusion -right l ower leg -continue to monitor symptoms - call if does not resolve or other symptoms develop. Patient verbalized understanding of plan. director of radiology use of anti coagulants -check PT/INR . Edema - pt has bee n [...] in blood pressure readings at home. . Sinusitis - Pt has acute infection [...] to call if symptoms do not improve. Check your PT INR on Wednesday or [...] to further attempt to reduce peripheral edema. check coumadin level on wednesday Nasal spray- [...] neck muscles. allergies - kenalog 40mg im [employer] - lot # [id number] expires september 2018 . Hypertension - wel [...] in symptoms, worsening redness, warmth, discharge. . Hypertension - wel l controlled - [...] based on previous levels of control. . Cellulitis - daylin nue with oral [...]
--- OUTSIDE RECORDS SUMMARY | 2019-09-12 11:05 | XMS REPORT | CCD ---
Author Author Clara Pisano Organization Valerie Pisano MD, [facility] Address [address] [place] [address] Phone Care Team Providers Care Revenue Collector Name Role Phone PP Unavailable CCM Unavailable Summary Purpose Interface Exchange Insurance Providers Payer name Policy type / Coverage type Covered green party ID Effective Begin Date Effective End Date WPS Medicare Part B Medicare Part B [id number] 2018 Unknown [employer] Medicare Part B [id number] Unknown Family history Sister Diagnosis Age At Onset defect Unknown Breast cancer Unknown Daughter Diagnosis Age At Onset Breast cancer Unknown Mother Diagnosis Age At Onset No Family Disease Entered N/A Social History Social History Element Codes Description Effective Dates Marital status Unknown M arried Lane 11/20/2014 Number of children Unknown 6 11/20/2014 Employment Unknown Retir ed 11/20/[address]: 0720296 Quit over 10 years ago 1965 11/20/2014 Alcohol history Unknown occasionally drinks alcohol 11/20/2014 Allergies, Adverse Reactions, Alerts Substance Reaction Codes Entered Date Inactivated Date Status SULFA(SULFONAMIDE AN TIBIOTICS) rash Unknown 11/20/2014 No Inactive Date Active Past Medical History Illness Codes Condition Status Onset Date Resolved Date Contusion of right l ower leg, initial encounter ICD-9: 924.4 ICD-10: S80.11XA 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/2018 Unknown [facility] (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 ICD-9: V58.61 [...] encounter ICD-9: 924.4 ICD-10: S80.11XA 11/17/2018 Active 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 ICD-9: V58.61 ICD-10: [...] 11/19/2014 Active HYPOTHYROIDISM ICD-9: 244.9 11/19/2014 Active diamond 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 current us 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 therapy ICD-9: V58.61 10/19/2014 Active Medications Medication Codes Instruc tions Start Date Stop Date Sta Fill Instructions Keflex 500 mg capsule RxNorm: 185743 1 Capsule(s) PO TID 11/17/2018 11/21/2018 Active doxycycline hyclate 100 mg capsule RxNorm: 4859930 1 Capsule(s) PO BID 10/31/2018 10/30/2018 In active doxycycline hyclate 100 mg capsule RxNorm: 5964242 1 Capsule(s) PO BID 10/31/2018 11/06/2018 In active Keflex 500 mg capsule RxNorm: 503193 1 Capsule(s) PO TID 10/27/2018 10/30/2018 Inactive ceftriaxone 500 mg s olution for injection RxNorm: 6790056 Inj 10/27/2018 10/27/2018 Inactive Coumadin 4 mg tablet RxNorm: 811458 1 Tablet(s) PO daily 08/16/2018 08/10/2019 Active this is an update to her RX - she will l et you know when she needs refill triamcinolone aceton sreekanth 0.025 % topical cream RxNorm: 1427651 1 Application TOP QI D 08/16/2018 No Stop Date Active levothyroxine 125 mc g tablet RxNorm: 720581 TAKE ONE TABLET BY [facility] DAILY ON WEDNESDAY, WED, AND WEDNESDAY, AND 1/2 TABLET ON ., , WED AND WEDNESDAY. TAKE ON AN EMPTY STOMACH 08/04/2018 04/30/2019 Active meclizine 25 mg tablet RxNorm: 198948 1 Tablet(s) PO TID as needed Dizziness 07/22/2018 No Stop Date Active meclizine 25 mg tablet RxNorm: 407567 1 Tablet(s) PO TID as needed Dizziness 07/19/2018 07/21/2018 In active furosemide 40 mg tablet RxNorm: 717978 1 Tablet(s) BID take 1.5 tabs twice a da y x 7 days then 1 pill daily thereafter 07/11/2018 02/05/2019 Active Coumadin 4 mg tablet RxNorm: 445701 1 Tablet(s) PO daily except 1.5 pills on WEDNESDAY AND Wednesday07/11/2018 08/15/2018 Inactive this is an update to her RX - she will let you know when she needs refill warfarin 5 mg tablet RxNorm: 895060 Tablet(s) TAKE ONE TABLET BY MOUTH DAILY EXCEPT / TAKE 4 MG 04/06/2018 08/22/2019 Active diltiazem 60 mg tablet RxNorm: 443457 1/2 Tablet(s) PO QID 03/24/2018 No Stop Date Active levothyroxine 125 mc g tablet RxNorm: 435057 TAKE ONE TABLET BY [facility] DAILY ON WEDNESDAY, WED, AND WEDNESDAY, AND 1/2 TABLET ON , , WED AND WEDNESDAY. TAKE ON AN EMPTY STOMACH 02/02/2018 07/31/2018 Inactive Coumadin 4 mg tablet RxNorm: 502755 TAKE ONE TABLET BY MOUTH DAILY ON AND Wednesday10/14/2017 07/10/2018 Inactive nystatin 100,000 uni t/gram topical cream RxNorm: 612714 1 Application TOP TID 08/17/2017 No Stop Date Active Voltaren 1 % topical gel RxNorm: 242080 2 Gram(s) TOP TID luiz ly to shoulder and neck 08/17/2017 No Stop Date Active triamcinolone aceton sreekanth 0.025 % topical cream RxNorm: 6507371 1 Application TOP BI D 08/17/2017 08/15/2018 In active levothyroxine 125 mc g tablet RxNorm: 961997 1 Tablet(s) UD 1 pill wed/wed/wed, 1/2 pill //wed/wed take ON AN EMPTY STOMACH 08/05/2017 02/01/2018 Inactive Coumadin 4 mg tablet RxNorm: 518944 1 Tablet(s) PO Wed/07/29/2017 10/13/2017 Inactive warfarin 5 mg tablet RxNorm: 470595 TAKE 1 AND 1/2 TABLETS BY MOUTH ON AND WEDNESDAY. TAKE ONLY 1 TABLET BY MOUTH ALL OTHER DAYS OF THE WEEK 07/12/2017 04/05/2018 In active furosemide 40 mg tablet RxNorm: 124982 Tablet(s) BID TAKE ONE TABLET BY MOUTH D AILY 06/15/2017 07/10/2018 Inactive Voltaren 1 % topical gel RxNorm: 766679 2 Gram(s) TOP TID luiz ly to shoulder and neck 06/15/2017 08/16/2017 Inactive Keflex 500 mg capsule RxNorm: 091140 1 Capsule(s) PO TID 04/01/2017 04/07/2017 Inactive furosemide 40 mg tablet RxNorm: 268986 TAKE ONE TABLET BY MOUTH DAILY 03/18/2017 06/14/2017 In active Claritin-D 12 Hour 5 mg-120 mg tablet,extended release RxNorm: 8856424 1 Tablet(s) PO BID 03/16/2017 05/14/2017 Inactive Lipitor 20 mg tablet RxNorm: 677118 1 Tablet(s) PO daily 02/09/2017 03/10/2017 Inactive lisinopril 2.5 mg ta blet RxNorm: 423115 1 Tablet(s) PO daily 02/09/2017 03/10/2017 Inactive Nasonex 50 mcg/actua tion [place] RxNorm: 9957491 1 [place] NASAL BID 02/09/2017 09/06/2017 Inactive levothyroxine 125 mc g tablet RxNorm: 528388 1 Tablet(s) UD 1 pill wed/wed/wed, 1/2 pill //sat/sun take ON AN EMPTY STOMACH 02/09/2017 08/04/2017 Inactive fluorouracil 5 % top ical cream RxNorm: 589952 1 Application TOP BID 02/09/2017 02/18/2017 Inactive potassium chloride E R 20 mEq tablet,extended release RxNorm: 599612 Tablet(s) TAKE ONE TABLET BY MOUTH DAILY 02/08/2017 02/02/2018 Inactive warfarin 5 mg tablet RxNorm: 615039 TAKE 1 AND 1/2 TABLETS BY MOUTH ON AND WEDNESDAY. TAKE ONLY 1 TABLET BY MOUTH ALL OTHER DAYS OF THE WEEK 12/14/2016 05/30/2017 In active potassium chloride E R 20 mEq tablet,extended release RxNorm: 373652 TAKE ONE TABLET BY MOUTH DAILY 10/29/2016 01/26/2017 Inactive warfarin 5 mg tablet RxNorm: 229949 TAKE 1 AND 1/2 TABLETS BY MOUTH ON AND WEDNESDAY. TAKE ONLY 1 TABLET BY MOUTH ALL OTHER DAYS OF THE WEEK 10/27/2016 12/13/2016 In active nystatin 100,000 uni t/gram topical cream RxNorm: 958536 1 Application TOP TID 10/13/2016 08/16/2017 In active nitrofurantoin 50 mg capsule RxNorm: 342107 1 Capsule(s) PO BID 09/04/2016 09/03/2016 Inactive nitrofurantoin macro crystal 50 mg capsule RxNorm: 763168 1 Capsule(s) PO BID 09/04/2016 09/10/2016 In active Cipro 500 mg tablet RxNorm: 480306 1 Tablet(s) PO BID 08/26/2016 10/12/2016 Inactive Zyrtec 10 mg tablet RxNorm: 5830308 1 Tablet(s) PO daily 07/31/2016 08/29/2016 Inactive prednisone 20 mg tablet RxNorm: 051626 2 Tablet(s) PO daily 07/31/2016 08/02/2016 Inactive Kenalog 40 mg/mL zohra pension for injection RxNorm: 5099377 Milliliter(s) Inj 07/22/2016 07/22/2016 In active ceftriaxone 500 mg s olution for injection RxNorm: 6387622 Inj 07/22/2016 07/22/2016 Inactive Flonase Allergy Reli ef 50 mcg/actuation nasal spray,suspension RxNorm: 2320665 1 [place] NASAL BID 07/22/2016 08/20/2016 Inactive azithromycin 250 mg tablet RxNorm: 880039 2 Tablet(s) PO on day #1, then 1 pill daily x 4 days 07/22/2016 10/12/2016 Inactive warfarin 5 mg tablet RxNorm: 301902 TAKE 1 AND 1/2 TABLETS BY MOUTH ON AND WEDNESDAY. TAKE ONLY 1 TABLET BY MOUTH ALL OTHER DAYS OF THE WEEK 07/09/2016 09/30/2016 In active levothyroxine 125 mc g tablet RxNorm: 453450 Tablet(s) TAKE ONE TA BLET BY MOUTH DAILY ON AN EMPTY STOMACH 06/23/2016 02/08/2017 Inactive levothyroxine 125 mc g tablet RxNorm: 971155 TAKE ONE TABLET BY [facility] DAILY ON AN EMPTY STOMACH 06/23/2016 06/22/2016 Inactive levothyroxine 125 mc g tablet RxNorm: 287859 TAKE ONE TABLET BY [facility] DAILY ON AN EMPTY STOMACH 06/23/2016 08/04/2017 Inactive cetirizine 10 mg tablet RxNorm: 7167737 TAKE ONE TABLET BY MOUTH DAILY 06/16/2016 10/13/2016 In active furosemide 40 mg tablet RxNorm: 693038 Tablet(s) TAKE ONE TABLET BY MOUTH DAILY 06/05/2016 12/01/2016 In active cetirizine 10 mg tablet RxNorm: 3854738 1 Tablet(s) PO daily 05/01/2016 05/30/2016 Inactive Levaquin 250 mg tablet RxNorm: 176969 Tablet(s) PO 2 pills day one and 1 pill day 2-7 04/06/2016 07/21/2016 Inactive warfarin 5 mg tablet RxNorm: 010174 Tablet(s) 1/2 TABLETS BY MOUTH ON AND WEDNESDAY. TAKE ONLY 1 TABLET BY MOUTH ALL OTHER DAYS OF THE WEEK 03/18/2016 07/07/2016 In active triamcinolone aceton sreekanth 0.025 % topical cream RxNorm: 4765563 1 Application TOP BI D 03/10/2016 08/16/2017 In active potassium chloride E R 20 mEq tablet,extended release RxNorm: 075596 1 Tablet(s) PO daily 03/04/2016 06/01/2016 Inactive Levaquin 250 mg tablet RxNorm: 758398 Tablet(s) PO 2 pills day one and 1 pill day 2-7 03/04/2016 04/05/2016 Inactive Levaquin 250 mg tablet RxNorm: 798847 Tablet(s) PO 2 pills day one and 1 pill day 2-7 03/03/2016 03/03/2016 Inactive potassium chloride E R 20 mEq tablet,extended release RxNorm: 552317 1 Tablet(s) PO daily 03/03/2016 03/03/2016 Inactive Cipro 500 mg tablet RxNorm: 823128 1 Tablet(s) PO BID 02/20/2016 07/21/2016 Inactive Cipro 500 mg tablet RxNorm: 149979 1 Tablet(s) PO BID 02/20/2016 02/19/2016 Inactive furosemide 40 mg tablet RxNorm: 535675 TAKE ONE TABLET BY MOUTH DAILY 01/27/2016 01/26/2016 In active warfarin 5 mg tablet RxNorm: 939973 TAKE 1 AND 1/2 TABLETS BY MOUTH ON AND WEDNESDAY. TAKE ONLY 1 TABLET BY MOUTH ALL OTHER DAYS OF THE WEEK 01/27/2016 01/26/2016 In active furosemide 40 mg tablet RxNorm: 419463 TAKE ONE TABLET BY MOUTH DAILY 01/27/2016 06/04/2016 In active warfarin 5 mg tablet RxNorm: 887818 TAKE 1 AND 1/2 TABLETS BY MOUTH ON AND WEDNESDAY. TAKE ONLY 1 TABLET BY MOUTH ALL OTHER DAYS OF THE WEEK 01/27/2016 03/17/2016 In active potassium chloride E R 20 mEq tablet,extended release RxNorm: 041708 1 Tablet(s) PO daily 11/20/2015 03/02/2016 Inactive furosemide 40 mg tablet RxNorm: 686497 TAKE ONE TABLET BY MOUTH DAILY 11/12/2015 01/26/2016 In active Zovirax 5 % topical cream RxNorm: 465948 TOP QID 0 09/24/2015 09/23/2015 Inactive Zovirax 5 % topical cream RxNorm: 818988 TOP QID 0 09/24/2015 11/19/2015 Inactive nystatin 100,000 uni t/gram topical cream RxNorm: 711964 1 Application TOP TID 09/17/2015 10/12/2016 In active warfarin 5 mg tablet RxNorm: 601408 TAKE 1 AND 1/2 TABLETS BY MOUTH ON AND WEDNESDAY. TAKE ONLY 1 TABLET BY MOUTH ALL OTHER DAYS OF THE WEEK 08/19/2015 01/05/2016 In active loratadine 10 mg tablet RxNorm: 859455 1 Tablet(s) PO daily 07/30/2015 07/23/2016 Inactive loratadine 10 mg tablet RxNorm: 147843 1 Tablet(s) PO daily 07/30/2015 07/29/2015 Inactive furosemide 40 mg tablet RxNorm: 356289 TAKE ONE TABLET BY MOUTH DAILY 06/24/2015 11/11/2015 In active levothyroxine 125 mc g tablet RxNorm: 834900 1 Tablet(s) PO daily 05/31/2015 05/24/2016 Inactive furosemide 40 mg tablet RxNorm: 768450 1 Tablet(s) PO daily 04/05/2015 06/23/2015 Inactive warfarin 5 mg tablet RxNorm: 065847 TAKE 1 AND 1/2 TABLETS BY MOUTH ON AND WEDNESDAY. TAKE ONLY 1 TABLET BY MOUTH ALL OTHER DAYS OF THE WEEK 02/12/2015 07/29/2015 In active Flonase Allergy Reli ef 50 mcg/actuation nasal spray,suspension RxNorm: 2 [place] NASAL daily 02/05/2015 03/06/2015 Inactive Kenalog 40 mg/mL zohra pension for injection RxNorm: 5226869 Milliliter(s) Inj 02/05/2015 02/05/2015 In active warfarin 5 mg tablet RxNorm: 373587 Take 7.5mg (1 1/2 tablets) Wednesday and and 1 Tablet(s) PO (5mg) all other days 01/11/2015 02/09/2015 Inactive levothyroxine 125 mc g tablet RxNorm: 039229 1 Tablet(s) PO every other day 01/01/2015 05/30/2015 In active alternate with 150 levothyroxine 150 mc g tablet RxNorm: 681706 1 Tablet(s) PO every other day 01/01/2015 05/30/2015 In active alternate with 125 loratadine 10 mg tablet RxNorm: 200303 Tablet(s) PO as needed No Start Date Active Fish Oil 1,000 mg ca psule RxNorm: 1 Capsule(s) PO TID No Start Date Active magnesium 250 mg tablet RxNorm: 1 Tablet(s) PO daily No Start Date Active Vitamin D3 2,000 uni t tablet RxNorm: 379865 2 Tablet(s) PO daily No Start Date Active Fosamax 35 mg tablet RxNorm: 162708 1 Tablet(s) PO QW No Start Date Active levothyroxine 125 mc g tablet RxNorm: 353603 1 Tablet(s) PO daily No Start Date 12/31/2014 Inactive levothyroxine 150 mc g tablet RxNorm: 045333 1 Tablet(s) PO daily No Start Date 12/31/2014 Inactive diltiazem 60 mg tablet RxNorm: 267561 1 Tablet(s) PO QID No Start Date 03/23/2018 Inactive meclizine 25 mg tablet RxNorm: 497625 1 Tablet(s) PO TID as needed Dizziness No Start Date 07/18/2018 Inactive furosemide 40 mg tablet RxNorm: 571675 1 Tablet(s) PO daily No Start Date 04/04/2015 Inactive potassium chloride RxNorm: miscellaneous No Start Date 11/19/2015 Inactive Vitamin D2 oral RxNorm: 4018 oral No Start Date 05/31/2015 Inactive warfarin 5 mg tablet RxNorm: 257761 1 Tablet(s) PO daily No Start Date 01/10/2015 Inactive Coumadin 4 mg tablet RxNorm: 512846 1 Tablet(s) PO Wed/ No Start Date 07/28/2017 Inactive Medication Administered Medication Codes Instruc tions Start Date Status ceftriaxone 500 mg solution for injection RxNorm: 8921002 10/27/2018 No longer A ctive ceftriaxone 500 mg solution for injection RxNorm: 7860159 07/22/2016 No longer A ctive Kenalog 40 mg/mL suspension for injection RxNorm: 7472533 Milliliter 07/22/2016 No longer Active Kenalog 40 mg/mL suspension for injection RxNorm: 3939237 Milliliter 02/05/2015 No longer Active Immunizations Vaccine Codes Date Status Influenza CVX: 141 03/24 completed Pneumococcal (Adult) CVX: 33 03/24/2018 completed Influenza CVX: 141 03/16 completed Pneumococcal (Adult) CVX: 133 03/16/2017 completed Influenza CVX: 141 05/06 completed Influenza CVX: 141 04/28 completed Pneumococcal CVX: 33 06/1999 completed Assessments Condition Codes Effectiv e Dates 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 ICD-10: Z79.01 ICD-9: [...] 244.9 11/20/2014 ACTINIC KERATOSIS ICD-9: 702.0 11/20/2014 diamond polisher current us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 therapy ICD-9: V58.61 [...] Code Item Item Code Result Date Pt Hkb1153 PT 18.0 seconds 11/14/2018 Pt Pjp8082 INR 1.5 11/14/2018 Pt Qwt5119 Low Intensity - 1.5-2.0 11/14/2018 Pt Vxq9181 Mod intensity - 2.0-3.0 11/14/2018 Pt Wmc5498 Hi intensity - 3.0-4.0 11/14/2018 Pt Bkc1803 PT 17.3 seconds 11/03/2018 Pt Jdl6912 INR 1.5 11/03/2018 Pt Agq4138 Low Intensity - 1.5-2.0 11/03/2018 Pt Jdv0742 Mod intensity - 2.0-3.0 11/03/2018 Pt Puk4876 Hi intensity - 3.0-4.0 11/03/2018 Urine Culture Ucult Comp lete >100,000 col/ml aerobic grow th sent to ref lab 10/28/2018 Pt Uwc1610 PT 24.4 seconds 10/24/2018 Pt Ntg2253 INR 2.2 10/24/2018 Pt Zfz2597 Low Intensity - 1.5-2.0 10/24/2018 Pt Gyz0088 Mod intensity - 2.0-3.0 10/24/2018 Pt Xem8998 Hi intensity - 3.0-4.0 10/24/2018 Lipid Ord30 CHOL 143 mg/dL 10/24/2018 Lipid Ord30 HDL 52.0 mg/dl 10/24/2018 Lipid Ord30 TRIG 78 mg/dL 10/24/2018 Lipid Ord30 LDL 75 mg/dL 10/24/2018 Lipid Ord30 C/HDL 2.8 Ratio 10/24/2018 Comp Metabolic Mrt391 NA 142 mEq/L 10/24/2018 Comp Metabolic Tdu602 K 4.6 mEq/L 10/24/2018 Comp Metabolic Kts871 CL 107 mEq/L 10/24/2018 Comp Metabolic Bif397 CO2 27.0 mEq/L 10/24/2018 Comp Metabolic Jic041 AN ION GAP 13 10/24/2018 Comp Metabolic Aww647 GL UCOSE 82 mg/dL 10/24/2018 Comp Metabolic Yky010 Cr eat 1.1 mg/dL 10/24/2018 Comp Metabolic Izi797 eG FR 54 ml/min/1.73m2 10/24 Comp Metabolic Npi447 BUN 23 mg/dL 10/24/2018 Comp Metabolic Xkp969 B/ C Ratio 21.9 Ratio 10/24/2018 Comp Metabolic Ojk724 CA LCIUM 9.0 mg/dL 10/24/2018 Comp Metabolic Irm197 AL K PHOS 64 U/L 10/24/2018 Comp Metabolic Dkt587 T(SGOT) 18 U/L 10/24/2018 Comp Metabolic Brj069 AL T(SGPT) 14 U/L 10/24/2018 Comp Metabolic Dnk049 BI LI T 0.5 mg/dL 10/24/2018 Comp Metabolic Woc577 AL BUMIN 3.0 g/dL 10/24/2018 Comp Metabolic Fop403 TP RO 5.2 g/dL 10/24/2018 Comp Metabolic Cxn364 GL OB 2.2 g/dL 10/24/2018 Comp Metabolic Qht409 A/ G Ratio 1.4 Ratio 10/24/2018 Comp Metabolic Yvp933 Os mo 286 mOsmo 10/24/2018 Pt Cvi0408 PT 23.8 seconds 09/29/2018 Pt Nxp2921 INR 2.2 09/29/2018 Pt Yjz8350 Low Intensity - 1.5-2.0 09/29/2018 Pt Sah8337 Mod intensity - 2.0-3.0 09/29/2018 Pt Lnn3513 Hi intensity - 3.0-4.0 09/29/2018 Pt Baq2596 PT 19.6 seconds 09/19/2018 Pt Gqb7219 INR 1.7 09/19/2018 Pt Jxt5726 Low Intensity - 1.5-2.0 09/19/2018 Pt You6110 Mod intensity - 2.0-3.0 09/19/2018 Pt Txo1782 Hi intensity - 3.0-4.0 09/19/2018 Pt Gyi8410 PT 16.8 seconds 09/12/2018 Pt Djy8718 INR 1.4 09/12/2018 Pt Nuv0821 Low Intensity - 1.5-2.0 09/12/2018 Pt Lrn6739 Mod intensity - 2.0-3.0 09/12/2018 Pt Lrk2791 Hi intensity - 3.0-4.0 09/12/2018 Pt Los7210 PT 13.1 seconds 09/07/2018 Pt Nab0235 INR 1.0 09/07/2018 Pt Kyv3779 Low Intensity - 1.5-2.0 09/07/2018 Pt Baa6137 Mod intensity - 2.0-3.0 09/07/2018 Pt Bqa6779 Hi intensity - 3.0-4.0 09/07/2018 Pt Jha4381 PT 24.1 seconds 08/23/2018 Pt Axw6083 INR 2.2 08/23/2018 Pt Btp4783 Low Intensity - 1.5-2.0 08/23/2018 Pt Nkz9813 Mod intensity - 2.0-3.0 08/23/2018 Pt Szc0317 Hi intensity - 3.0-4.0 08/23/2018 Pt Sqe2843 PT 30.9 seconds 08/16/2018 Pt Nin5949 INR 3.0 08/16/2018 Pt Qiq5596 Low Intensity - 1.5-2.0 08/16/2018 Pt Znc6385 Mod intensity - 2.0-3.0 08/16/2018 Pt Xpz3738 Hi intensity - 3.0-4.0 08/16/2018 Pt Ili4766 PT 29.5 seconds 08/01/2018 Pt Uat5977 INR 2.8 08/01/2018 Pt Vnf2755 Low Intensity - 1.5-2.0 08/01/2018 Pt Llx5825 Mod intensity - 2.0-3.0 08/01/2018 Pt Lxr1367 Hi intensity - 3.0-4.0 08/01/2018 Pt Jqk9092 PT 24.2 seconds 07/25/2018 Pt Jve3651 INR 2.2 07/25/2018 Pt Cqr0395 Low Intensity - 1.5-2.0 07/25/2018 Pt Klo6912 Mod intensity - 2.0-3.0 07/25/2018 Pt Ssr0809 Hi intensity - 3.0-4.0 07/25/2018 Pt Vdy8849 PT 38.6 seconds 07/19/2018 Pt Xbd5799 INR 4.0 07/19/2018 Pt Ghe5611 Low Intensity - 1.5-2.0 07/19/2018 Pt Fhj5804 Mod intensity - 2.0-3.0 07/19/2018 Pt Vzx8633 Hi intensity - 3.0-4.0 07/19/2018 Pt Jky6370 PT 25.7 seconds 07/11/2018 Pt Nvb1156 INR 2.4 07/11/2018 Pt Lyz7712 Low Intensity - 1.5-2.0 07/11/2018 Pt Vgq8272 Mod intensity - 2.0-3.0 07/11/2018 Pt Rot2021 Hi intensity - 3.0-4.0 07/11/2018 Pt Pzi1303 PT 18.5 seconds 07/08/2018 Pt Pba4537 INR 1.6 07/08/2018 Pt Acp2518 Low Intensity - 1.5-2.0 07/08/2018 Pt Mvu4765 Mod intensity - 2.0-3.0 07/08/2018 Pt Chl1095 Hi intensity - 3.0-4.0 07/08/2018 Pt Ode6568 PT 27.3 seconds 06/29/2018 Pt Ajg9367 INR 2.6 06/29/2018 Pt Vpm9167 Low Intensity - 1.5-2.0 06/29/2018 Pt Elp5983 Mod intensity - 2.0-3.0 06/29/2018 Pt Sgy0194 Hi intensity - 3.0-4.0 06/29/2018 Pt Rhf0139 PT 24.0 seconds 05/26/2018 Pt Owy0340 INR 2.2 05/26/2018 Pt Zum9669 Low Intensity - 1.5-2.0 05/26/2018 Pt Glg8345 Mod intensity - 2.0-3.0 05/26/2018 Pt Smu0162 Hi intensity - 3.0-4.0 05/26/2018 Tsh Ord6 [...] 29.6 pg 03/25/2018 Cbc With Differential Ord2 [place]% 9.5 % 03/25/2018 Cbc With Differential Ord2 [...] 2.19 K/ul 03/25/2018 Cbc With Differential Ord2 [place] ABS# 0.8 K/ul 03/25/2018 Cbc With Differential Ord2 Eos ABS# 0.3 K/ul 03/25/2018 Cbc With Differential Ord2 Baso ABS# 0.0 K/ul 03/25/2018 Lipid Ord30 CHOL 156 mg/dL 03/25/2018 Lipid Ord30 HDL 52.0 mg/dl 03/25/2018 Lipid Ord30 TRIG 98 mg/dL 03/25/2018 Lipid Ord30 LDL 84 mg/dL 03/25/2018 Lipid Ord30 C/HDL 3.0 Ratio 03/25/2018 Free T4 Rsx873 FREE T4 1.73 ng/dL 03/25/2018 Comp Metabolic Nqm870 NA 143 mEq/L 03/25/2018 Comp Metabolic Fri610 K 4.6 mEq/L 03/25/2018 Comp Metabolic Epx529 CL 108 mEq/L 03/25/2018 Comp Metabolic Phm860 CO2 26.0 mEq/L 03/25/2018 Comp Metabolic Kmp255 AN ION GAP 14 03/25/2018 Comp Metabolic Qfp542 GL UCOSE 87 mg/dL 03/25/2018 Comp Metabolic Yey839 Cr eat 1.2 mg/dL 03/25/2018 Comp Metabolic Wmh198 eG FR 48 ml/min/1.73m2 03/25 Comp Metabolic Qwm847 BUN 18 mg/dL 03/25/2018 Comp Metabolic Mot673 B/ C Ratio 15.5 Ratio 03/25/2018 Comp Metabolic Pyd976 CA LCIUM 9.1 mg/dL 03/25/2018 Comp Metabolic Utw799 AL K PHOS 58 U/L 03/25/2018 Comp Metabolic Mpc408 T(SGOT) 21 U/L 03/25/2018 Comp Metabolic Sao841 AL T(SGPT) 13 U/L 03/25/2018 Comp Metabolic Tfc735 BI LI T 0.7 mg/dL 03/25/2018 Comp Metabolic Yft862 AL BUMIN 3.2 g/dL 03/25/2018 Comp Metabolic Bfl197 TP RO 5.5 g/dL 03/25/2018 Comp Metabolic Rec677 GL OB 2.3 g/dL 03/25/2018 Comp Metabolic Yrf736 A/ G Ratio 1.4 Ratio 03/25/2018 Comp Metabolic Dgs379 Os mo 286 mOsmo 03/25/2018 Pt Tzh3131 PT 29.0 seconds 03/22/2018 Pt Baq0425 INR 2.7 03/22/2018 Pt Dhh4695 Low Intensity - 1.5-2.0 03/22/2018 Pt Lna4673 Mod intensity - 2.0-3.0 03/22/2018 Pt Jve7524 Hi intensity - 3.0-4.0 03/22/2018 Pt Zai4891 PT 27.1 seconds 02/25/2018 Pt Gyz2860 INR 2.5 02/25/2018 Pt Stj5541 Low Intensity - 1.5-2.0 02/25/2018 Pt Hts5713 Mod intensity - 2.0-3.0 02/25/2018 Pt Qlt9894 Hi intensity - 3.0-4.0 02/25/2018 Pt Fjr5421 PT 26.1 seconds 01/26/2018 Pt Fpd5017 INR 2.4 01/26/2018 Pt Ewc6847 Low Intensity - 1.5-2.0 01/26/2018 Pt Iuy9498 Mod intensity - 2.0-3.0 01/26/2018 Pt Pnj1248 Hi intensity - 3.0-4.0 01/26/2018 Pt Rnt6798 PT 22.8 seconds 12/24/2017 Pt Kgu5810 INR 2.0 12/24/2017 Pt Sbo2624 Low Intensity - 1.5-2.0 12/24/2017 Pt Jhp3784 Mod intensity - 2.0-3.0 12/24/2017 Pt Guv6931 Hi intensity - 3.0-4.0 12/24/2017 Pt Oqv1575 PT 29.4 seconds 11/18/2017 Pt Hts8898 INR 2.8 11/18/2017 Pt Xzy8139 Low Intensity - 1.5-2.0 11/18/2017 Pt Xrf1174 Mod intensity - 2.0-3.0 11/18/2017 Pt Cym3202 Hi intensity - 3.0-4.0 11/18/2017 Pt Jjb9392 PT 26.6 seconds 09/13/2017 Pt Gyf4365 INR 2.4 09/13/2017 Pt Xjg0417 Low Intensity - 1.5-2.0 09/13/2017 Pt Awe7987 Mod intensity - 2.0-3.0 09/13/2017 Pt Xwd1973 Hi intensity - 3.0-4.0 09/13/2017 Pt Asr8269 PT 28.2 seconds 08/10/2017 Pt Amt8642 INR 2.6 08/10/2017 Pt Ojo6117 Low Intensity - 1.5-2.0 08/10/2017 Pt Mjk1038 Mod intensity - 2.0-3.0 08/10/2017 Pt Gcq2424 Hi intensity - 3.0-4.0 08/10/2017 Pt Iyk0894 PT 33.9 seconds 07/27/2017 Pt Oyy6641 INR 3.3 07/27/2017 Pt Qhd6836 Low Intensity - 1.5-2.0 07/27/2017 Pt Lgx4474 Mod intensity - 2.0-3.0 07/27/2017 Pt Ptd1464 Hi intensity - 3.0-4.0 07/27/2017 Pt Isi4550 PT 29.1 seconds 06/29/2017 Pt Alc2398 INR 2.7 06/29/2017 Pt Etd2041 Low Intensity - 1.5-2.0 06/29/2017 Pt Xvi0899 Mod intensity - 2.0-3.0 06/29/2017 Pt Rte4329 Hi intensity - 3.0-4.0 06/29/2017 Pt Hyu0423 PT 30.3 seconds 06/11/2017 Pt Baj7681 INR 2.9 06/11/2017 Pt Kum7518 Low Intensity - 1.5-2.0 06/11/2017 Pt Mcf2487 Mod intensity - 2.0-3.0 06/11/2017 Pt Bej8025 Hi intensity - 3.0-4.0 06/11/2017 Pt Vbf3016 PT 39.1 seconds 06/07/2017 Pt Gka5838 INR 3.9 06/07/2017 Pt Dyt6393 Low Intensity - 1.5-2.0 06/07/2017 Pt Tzt9313 Mod intensity - 2.0-3.0 06/07/2017 Pt Gkq4115 Hi intensity - 3.0-4.0 06/07/2017 Pt Qnm9760 PT 34.2 seconds 05/26/2017 Pt Wyw3986 INR 3.3 05/26/2017 Pt Gsr6555 Low Intensity - 1.5-2.0 05/26/2017 Pt Tho7323 Mod intensity - 2.0-3.0 05/26/2017 Pt Mrm5511 Hi intensity - 3.0-4.0 05/26/2017 Comp Metabolic Kwt928 NA 138 mEq/L 04/23/2017 Comp Metabolic Dly993 K 4.2 mEq/L 04/23/2017 Comp Metabolic Slp123 CL 101 mEq/L 04/23/2017 Comp Metabolic Kxp682 CO2 28.0 mEq/L 04/23/2017 Comp Metabolic Ayh725 AN ION GAP 13 04/23/2017 Comp Metabolic Ybu621 GL UCOSE 89 mg/dL 04/23/2017 Comp Metabolic Qiy527 Cr eat 1.1 mg/dL 04/23/2017 Comp Metabolic Xst262 eG FR 51 ml/min/1.73m2 04/23 Comp Metabolic Lxd668 BUN 26 mg/dL 04/23/2017 Comp Metabolic Ett994 B/ C Ratio 23.9 Ratio 04/23/2017 Comp Metabolic Rzo946 CA LCIUM 9.4 mg/dL 04/23/2017 Comp Metabolic Yph803 AL K PHOS 95 U/L 04/23/2017 Comp Metabolic Pym066 T(SGOT) 18 U/L 04/23/2017 Comp Metabolic Nmc759 AL T(SGPT) 17 U/L 04/23/2017 Comp Metabolic Iiz044 BI LI T 0.7 mg/dL 04/23/2017 Comp Metabolic Ljq841 AL BUMIN 3.2 g/dL 04/23/2017 Comp Metabolic Pah339 TP RO 5.6 g/dL 04/23/2017 Comp Metabolic Wha357 GL OB 2.4 g/dL 04/23/2017 Comp Metabolic Poe458 A/ G Ratio 1.3 Ratio 04/23/2017 Comp Metabolic Ufk692 Os mo 280 mOsmo 04/23/2017 Pt Raw9794 PT 28.6 seconds 04/23/2017 Pt Vwi5767 INR 2.7 04/23/2017 Pt Iqn9143 Low Intensity - 1.5-2.0 04/23/2017 Pt Qoa5390 Mod intensity - 2.0-3.0 04/23/2017 Pt Oun6530 Hi intensity - 3.0-4.0 04/23/2017 Pt Sjr8113 PT 24.4 seconds 03/16/2017 Pt Jsm2773 INR 2.2 03/16/2017 Pt Ebl0621 Low Intensity - 1.5-2.0 03/16/2017 Pt Auh5231 Mod intensity - 2.0-3.0 03/16/2017 Pt Tun1471 Hi intensity - 3.0-4.0 03/16/2017 Pt Xuo4647 PT 28.2 seconds 02/24/2017 Pt Peh9756 INR 2.6 02/24/2017 Pt Gyh9783 Low Intensity - 1.5-2.0 02/24/2017 Pt Gui5489 Mod intensity - 2.0-3.0 02/24/2017 Pt Yrd0519 Hi intensity - 3.0-4.0 02/24/2017 Pt Cuc9237 PT 26.8 seconds 02/08/2017 Pt Oqy8126 INR 2.5 02/08/2017 Pt Mrk9431 Low Intensity - 1.5-2.0 02/08/2017 Pt Swh8627 Mod intensity - 2.0-3.0 02/08/2017 Pt Usq1833 Hi intensity - 3.0-4.0 02/08/2017 Lipid Ord30 CHOL 150 mg/dL 01/25/2017 Lipid Ord30 HDL 55.0 mg/dl 01/25/2017 Lipid Ord30 TRIG 66 mg/dL 01/25/2017 Lipid Ord30 LDL 82 mg/dL 01/25/2017 Lipid Ord30 C/HDL 2.7 Ratio 01/25/2017 Pt Agz7212 PT 29.9 seconds 01/25/2017 Pt Qct8418 INR 2.8 01/25/2017 Pt Dnj6901 Low Intensity - 1.5-2.0 01/25/2017 Pt Zrl8600 Mod intensity - 2.0-3.0 01/25/2017 Pt Lkg2227 Hi intensity - 3.0-4.0 01/25/2017 Comp Metabolic Upn892 NA 143 mEq/L 01/25/2017 Comp Metabolic Tsu328 K 3.9 mEq/L 01/25/2017 Comp Metabolic Nsa985 CL 108 mEq/L 01/25/2017 Comp Metabolic Agy057 CO2 23.0 mEq/L 01/25/2017 Comp Metabolic Vdp303 AN ION GAP 16 01/25/2017 Comp Metabolic Pje370 GL UCOSE 80 mg/dL 01/25/2017 Comp Metabolic Qhp748 Cr eat 1.0 mg/dL 01/25/2017 Comp Metabolic Vfl772 eG FR 57 ml/min/1.73m2 01/25 Comp Metabolic Fcg832 BUN 25 mg/dL 01/25/2017 Comp Metabolic Qif475 B/ C Ratio 25.0 Ratio 01/25/2017 Comp Metabolic Vln441 CA LCIUM 8.5 mg/dL 01/25/2017 Comp Metabolic Xwf335 AL K PHOS 81 U/L 01/25/2017 Comp Metabolic Aln639 T(SGOT) 19 U/L 01/25/2017 Comp Metabolic Xru582 AL T(SGPT) 23 U/L 01/25/2017 Comp Metabolic Nvc646 BI LI T 0.5 mg/dL 01/25/2017 Comp Metabolic Sqe434 AL BUMIN 2.9 g/dL 01/25/2017 Comp Metabolic Ley772 TP RO 5.1 g/dL 01/25/2017 Comp Metabolic Ivi089 GL OB 2.2 g/dL 01/25/2017 Comp Metabolic Fdy735 A/ G Ratio 1.3 Ratio 01/25/2017 Comp Metabolic Hqf836 Os mo 288 mOsmo 01/25/2017 Cbc With [...] 30.7 pg 01/25/2017 Cbc With Differential Ord2 [place]% 8.2 % 01/25/2017 Cbc With Differential Ord2 [...] 3.10 K/ul 01/25/2017 Cbc With Differential Ord2 [place] ABS# 0.8 K/ul 01/25/2017 Cbc With Differential Ord2 Eos ABS# 0.4 K/ul 01/25/2017 Cbc With Differential Ord2 Baso ABS# 0.1 K/ul 01/25/2017 Free T4 Zcc769 FREE T4 2.09 ng/dL 01/25/2017 Tsh Ord6 hTSH II 0.46 uIU/mL 01/25/2017 Pt Ich3407 PT 26.1 seconds 11/26/2016 Pt Llm4496 INR 2.6 11/26/2016 Pt Tuk5411 Low Intensity - 1.5-2.0 11/26/2016 Pt Zlu9059 Mod intensity - 2.0-3.0 11/26/2016 Pt Msl8558 Hi intensity - 3.0-4.0 11/26/2016 Pt Aag2021 PT 26.2 seconds 10/29/2016 Pt Zne4824 INR 2.6 10/29/2016 Pt Kbo5712 Low Intensity - 1.5-2.0 10/29/2016 Pt Ywd2412 Mod intensity - 2.0-3.0 10/29/2016 Pt Kgb4989 Hi intensity - 3.0-4.0 10/29/2016 Pt Vof2614 PT 20.8 seconds 10/13/2016 Pt Qdz9690 INR 1.9 10/13/2016 Pt Fij4876 Low Intensity - 1.5-2.0 10/13/2016 Pt Yzp2606 Mod intensity - 2.0-3.0 10/13/2016 Pt Htl1375 Hi intensity - 3.0-4.0 10/13/2016 Pt Qjy5447 PT 26.5 seconds 10/01/2016 Pt Vfi6920 INR 2.6 10/01/2016 Pt Qlb1470 Low Intensity - 1.5-2.0 10/01/2016 Pt Jbx9592 Mod intensity - 2.0-3.0 10/01/2016 Pt Ygb6886 Hi intensity - 3.0-4.0 10/01/2016 Pt Zwt6702 PT 24.6 seconds 09/14/2016 Pt Gsx1246 INR 2.4 09/14/2016 Pt Mzi2290 Low Intensity - 1.5-2.0 09/14/2016 Pt Sxh1728 Mod intensity - 2.0-3.0 09/14/2016 Pt Url7428 Hi intensity - 3.0-4.0 09/14/2016 Pt Ovp8228 PT 18.0 seconds 09/07/2016 Pt Hfi6854 INR 1.6 09/07/2016 Pt Mmc7884 Low Intensity - 1.5-2.0 09/07/2016 Pt Udr9086 Mod intensity - 2.0-3.0 09/07/2016 Pt Tfp7153 Hi intensity - 3.0-4.0 09/07/2016 Pt Sja9557 PT 23.7 seconds 08/12/2016 Pt Gpz8535 INR 2.2 08/12/2016 Pt Xfr4653 Low Intensity - 1.5-2.0 08/12/2016 Pt Rmb1696 Mod intensity - 2.0-3.0 08/12/2016 Pt Csz3268 Hi intensity - 3.0-4.0 08/12/2016 Pt Hyx0771 PT 21.6 seconds 07/27/2016 Pt Hsm8572 INR 2.0 07/27/2016 Pt Oru2660 Low Intensity - 1.5-2.0 07/27/2016 Pt Xpm0319 Mod intensity - 2.0-3.0 07/27/2016 Pt Tgq1960 Hi intensity - 3.0-4.0 07/27/2016 Pt Ual2434 PT 26.0 seconds 06/15/2016 Pt Ibx5512 INR 2.5 06/15/2016 Pt Jvb4395 Low Intensity - 1.5-2.0 06/15/2016 Pt Bds6204 Mod intensity - 2.0-3.0 06/15/2016 Pt Btq6722 Hi intensity - 3.0-4.0 06/15/2016 Pt Yoh6448 PT 18.8 seconds 06/01/2016 Pt Bzq4086 INR 1.7 06/01/2016 Pt Mws6352 Low Intensity - 1.5-2.0 06/01/2016 Pt Ois2866 Mod intensity - 2.0-3.0 06/01/2016 Pt Eqi6611 Hi intensity - 3.0-4.0 06/01/2016 Pt Dic3235 PT 20.8 seconds 05/12/2016 Pt Ens9769 INR 1.9 05/12/2016 Pt Jhx8757 Low Intensity - 1.5-2.0 05/12/2016 Pt Dfv5521 Mod intensity - 2.0-3.0 05/12/2016 Pt Jpu1106 Hi intensity - 3.0-4.0 05/12/2016 Pt Qde6153 PT 24.5 seconds 04/10/2016 Pt Bes6280 INR 2.4 04/10/2016 Pt Pqm7387 Low Intensity - 1.5-2.0 04/10/2016 Pt Jje7790 Mod intensity - 2.0-3.0 04/10/2016 Pt Dot8216 Hi intensity - 3.0-4.0 04/10/2016 Pt Ptq8564 PT 26.4 seconds 03/10/2016 Pt Geg2957 INR 2.6 03/10/2016 Pt Zcy8196 Low Intensity - 1.5-2.0 03/10/2016 Pt Lzs4003 Mod intensity - 2.0-3.0 03/10/2016 Pt Lct2169 Hi intensity - 3.0-4.0 03/10/2016 Pt Hki5541 PT 24.9 seconds 03/06/2016 Pt Yqx5449 INR 2.4 03/06/2016 Pt Lqt7236 Low Intensity - 1.5-2.0 03/06/2016 Pt Igd3715 Mod intensity - 2.0-3.0 03/06/2016 Pt Yea7974 Hi intensity - 3.0-4.0 03/06/2016 Pt Dis1689 PT 21.9 seconds 02/25/2016 Pt Uki8920 INR 2.0 02/25/2016 Pt Xdi6323 Low Intensity - 1.5-2.0 02/25/2016 Pt Bwi3094 Mod intensity - 2.0-3.0 02/25/2016 Pt Vcw1581 Hi intensity - 3.0-4.0 02/25/2016 Pt Nnk6410 PT 21.8 seconds 02/21/2016 Pt Gen1026 INR 2.0 02/21/2016 Pt Cue1323 Low Intensity - 1.5-2.0 02/21/2016 Pt Pnv0065 Mod intensity - 2.0-3.0 02/21/2016 Pt Bam7804 Hi intensity - 3.0-4.0 02/21/2016 Culture Urine [id number] URI NE CULTURE SEE NOTES 02/20/2016 Culture Urine [id number] Con tinued Results 02/20/2016 Urine Culture Ucult [...] 29.2 pg 02/14/2016 Cbc With Differential Ord2 [place]% 9.3 % 02/14/2016 Cbc With Differential Ord2 [...] 2.55 K/ul 02/14/2016 Cbc With Differential Ord2 [place] ABS# 0.8 K/ul 02/14/2016 Cbc With Differential Ord2 Eos ABS# 0.4 K/ul 02/14/2016 Cbc With Differential Ord2 Baso ABS# 0.1 K/ul 02/14/2016 Tsh Ord6 hTSH II 0.80 uIU/mL 02/14/2016 Pt Dhg2245 PT 27.1 seconds 02/14/2016 Pt Mqr4947 INR 2.7 02/14/2016 Pt Irz8178 Low Intensity - 1.5-2.0 02/14/2016 Pt Bnp8852 Mod intensity - 2.0-3.0 02/14/2016 Pt Apu6191 Hi intensity - 3.0-4.0 02/14/2016 Free T4 Dls609 FREE T4 1.87 ng/dL 02/14/2016 Comp Metabolic Lcw788 NA 139 mEq/L 02/14/2016 Comp Metabolic Lyj333 K 3.8 mEq/L 02/14/2016 Comp Metabolic Vsd894 CL 103 mEq/L 02/14/2016 Comp Metabolic Fwq834 CO2 27.0 mEq/L 02/14/2016 Comp Metabolic Fsi044 AN ION GAP 13 02/14/2016 Comp Metabolic Zdc978 GL UCOSE 91 mg/dL 02/14/2016 Comp Metabolic Koc475 Cr eat 1.0 mg/dL 02/14/2016 Comp Metabolic Ubw373 eG FR 58 ml/min/1.73m2 02/13 Comp Metabolic Kuf673 BUN 16 mg/dL 02/14/2016 Comp Metabolic Aau499 B/ C Ratio 16.2 Ratio 02/14/2016 Comp Metabolic Lna606 CA LCIUM 9.0 mg/dL 02/14/2016 Comp Metabolic Gmf858 AL K PHOS 88 U/L 02/14/2016 Comp Metabolic Xcp066 T(SGOT) 17 U/L 02/14/2016 Comp Metabolic Vmn655 AL T(SGPT) 12 U/L 02/14/2016 Comp Metabolic Brn586 BI LI T 0.6 mg/dL 02/14/2016 Comp Metabolic Fma222 AL BUMIN 3.2 g/dL 02/14/2016 Comp Metabolic Tkt689 TP RO 5.8 g/dL 02/14/2016 Comp Metabolic Qhq841 GL OB 2.6 g/dL 02/14/2016 Comp Metabolic Jeg985 A/ G Ratio 1.3 Ratio 02/14/2016 Comp Metabolic Lvu799 Os mo 278 mOsmo 02/14/2016 Pt Gbw7664 PT 34.6 seconds 02/06/2016 Pt Vbz2482 INR 3.7 02/06/2016 Pt Jss8261 Low Intensity - 1.5-2.0 02/06/2016 Pt Ylj3718 Mod intensity - 2.0-3.0 02/06/2016 Pt Luu1747 Hi intensity - 3.0-4.0 02/06/2016 Pt Ehj7061 PT 33.3 seconds 01/23/2016 Pt Uca7476 INR 3.5 01/23/2016 Pt Nlh2894 Low Intensity - 1.5-2.0 01/23/2016 Pt Pls8211 Mod intensity - 2.0-3.0 01/23/2016 Pt Fik2506 Hi intensity - 3.0-4.0 01/23/2016 Pt Hya1203 PT 30.5 seconds 12/31/2015 Pt Uiw4628 INR 3.2 12/31/2015 Pt Bky5345 Low Intensity - 1.5-2.0 12/31/2015 Pt Zsj3653 Mod intensity - 2.0-3.0 12/31/2015 Pt Dev3769 Hi intensity - 3.0-4.0 12/31/2015 Pt Gus9993 PT 35.6 seconds 12/25/2015 Pt Vca0715 INR 3.9 12/25/2015 Pt Rer4980 Low Intensity - 1.5-2.0 12/25/2015 Pt Xkf2760 Mod intensity - 2.0-3.0 12/25/2015 Pt Pdq4653 Hi intensity - 3.0-4.0 12/25/2015 Pt Yyl1483 PT 30.8 seconds 11/21/2015 Pt Uml9371 INR 3.2 11/21/2015 Pt Okd5786 Low Intensity - 1.5-2.0 11/21/2015 Pt Ruc5588 Mod intensity - 2.0-3.0 11/21/2015 Pt Spd3388 Hi intensity - 3.0-4.0 11/21/2015 Uric Acid [...] 30.0 pg 11/20/2015 Cbc With Differential Ord2 [place]% 8.1 % 11/20/2015 Cbc With Differential Ord2 [...] 2.51 K/ul 11/20/2015 Cbc With Differential Ord2 [place] ABS# 0.9 K/ul 11/20/2015 Cbc With Differential Ord2 Eos ABS# 0.3 K/ul 11/20/2015 Cbc With Differential Ord2 Baso ABS# 0.0 K/ul 11/20/2015 Comp Metabolic Uww660 NA 137 mEq/L 10/22/2015 Comp Metabolic Qlu400 K 3.9 mEq/L 10/22/2015 Comp Metabolic Udl629 CL 100 mEq/L 10/22/2015 Comp Metabolic Udx520 CO2 31.0 mEq/L 10/22/2015 Comp Metabolic Ijl213 AN ION GAP 10 10/22/2015 Comp Metabolic Bsb432 GL UCOSE 94 mg/dL 10/22/2015 Comp Metabolic Wor735 Cr eat 1.0 mg/dL 10/22/2015 Comp Metabolic Drm476 eG FR 55 ml/min/1.73m2 10/21 Comp Metabolic Kfl558 BUN 19 mg/dL 10/22/2015 Comp Metabolic Lkd450 B/ C Ratio 18.3 Ratio 10/22/2015 Comp Metabolic Oih609 CA LCIUM 8.8 mg/dL 10/22/2015 Comp Metabolic Brt376 AL K PHOS 83 U/L 10/22/2015 Comp Metabolic Qrr059 T(SGOT) 15 U/L 10/22/2015 Comp Metabolic Bgn111 AL T(SGPT) 13 U/L 10/22/2015 Comp Metabolic Sls546 BI LI T 0.9 mg/dL 10/22/2015 Comp Metabolic Rzr859 AL BUMIN 2.8 g/dL 10/22/2015 Comp Metabolic Lck513 TP RO 5.4 g/dL 10/22/2015 Comp Metabolic Rjt668 GL OB 2.6 g/dL 10/22/2015 Comp Metabolic Kok200 A/ G Ratio 1.1 Ratio 10/22/2015 Comp Metabolic Ndr657 Os mo 276 mOsmo 10/22/2015 Bili D Ord93 BILI D 0.1 mg/dL 10/22/2015 Bili D Ord93 BILI I 0.8 mg/dL 10/22/2015 Pt Keb0876 PT 22.8 seconds 10/22/2015 Pt Sfw1694 INR 2.1 10/22/2015 Pt Rwx3433 Low Intensity - 1.5-2.0 10/22/2015 Pt Ble7663 Mod intensity - 2.0-3.0 10/22/2015 Pt Ruj5258 Hi intensity - 3.0-4.0 10/22/2015 Pt Rco6649 PT 28.0 seconds 09/16/2015 Pt Eqz0436 INR 2.7 09/16/2015 Pt Uzj0213 Low Intensity - 1.5-2.0 09/16/2015 Pt Yhv2818 Mod intensity - 2.0-3.0 09/16/2015 Pt Xyh9537 Hi intensity - 3.0-4.0 09/16/2015 Tsh Ord6 hTSH II 1.40 uIU/mL 09/16/2015 Free T4 Ojc776 FREE T4 1.73 ng/dL 09/16/2015 Lipid Ord30 CHOL 169 mg/dL 09/16/2015 Lipid Ord30 HDL 66.0 mg/dl 09/16/2015 Lipid Ord30 TRIG 78 mg/dL 09/16/2015 Lipid Ord30 LDL 87 mg/dL 09/16/2015 Lipid Ord30 C/HDL 2.6 Ratio 09/16/2015 Pt Htg7661 PT 26.6 seconds 08/21/2015 Pt Wui7251 INR 2.6 08/21/2015 Pt Qvm3955 Low Intensity - 1.5-2.0 08/21/2015 Pt Tou1735 Mod intensity - 2.0-3.0 08/21/2015 Pt Zrf9910 Hi intensity - 3.0-4.0 08/21/2015 Comp Metabolic Zik806 NA 141 mEq/L 08/08/2015 Comp Metabolic Vyw339 K 3.3 mEq/L 08/08/2015 Comp Metabolic Ore973 CL 102 mEq/L 08/08/2015 Comp Metabolic Wfx840 CO2 31.0 mEq/L 08/08/2015 Comp Metabolic Whd247 AN ION GAP 11 08/08/2015 Comp Metabolic Orl209 GL UCOSE 83 mg/dL 08/08/2015 Comp Metabolic Guj306 Cr eat 1.0 mg/dL 08/08/2015 Comp Metabolic Vyw497 eG FR 55 ml/min/1.73m2 08/08 Comp Metabolic Npk053 BUN 19 mg/dL 08/08/2015 Comp Metabolic Fuj423 B/ C Ratio 18.3 Ratio 08/08/2015 Comp Metabolic Kol140 CA LCIUM 8.9 mg/dL 08/08/2015 Comp Metabolic Jaz306 AL K PHOS 84 U/L 08/08/2015 Comp Metabolic Bzo442 T(SGOT) 20 U/L 08/08/2015 Comp Metabolic Vze716 AL T(SGPT) 18 U/L 08/08/2015 Comp Metabolic Ogz801 BI LI T 0.6 mg/dL 08/08/2015 Comp Metabolic Gnm043 AL BUMIN 3.3 g/dL 08/08/2015 Comp Metabolic Qes434 TP RO 5.9 g/dL 08/08/2015 Comp Metabolic Sgd768 GL OB 2.6 g/dL 08/08/2015 Comp Metabolic Ake491 A/ G Ratio 1.3 Ratio 08/08/2015 Comp Metabolic Ofq087 Os mo 283 mOsmo 08/08/2015 Cbc With [...] 30.0 pg 08/08/2015 Cbc With Differential Ord2 [place]% 8.2 % 08/08/2015 Cbc With Differential Ord2 [...] 2.90 K/ul 08/08/2015 Cbc With Differential Ord2 [place] ABS# 0.9 K/ul 08/08/2015 Cbc With Differential [...] Ord93 BILI I 0.5 mg/dL 08/08/2015 Pt Bxx4691 PT 31.8 seconds 08/05/2015 Pt Rph9404 INR 3.2 08/05/2015 Pt Kto2706 Low Intensity - 1.5-2.0 08/05/2015 Pt Qud7085 Mod intensity - 2.0-3.0 08/05/2015 Pt Ioe2822 Hi intensity - 3.0-4.0 08/05/2015 Pt Enw6236 PT 27.4 seconds 06/27/2015 Pt Ucn4974 INR 2.6 06/27/2015 Pt Gea5933 Low Intensity - 1.5-2.0 06/27/2015 Pt Onj8239 Mod intensity - 2.0-3.0 06/27/2015 Pt Xsj8350 Hi intensity - 3.0-4.0 06/27/2015 Tsh Ord6 [...] Ord2 RDW 15.1 % 05/31/2015 Free T4 Sxc648 FREE T4 1.89 ng/dL 05/31/2015 Comp Metabolic Ejw934 NA 140 mEq/L 05/31/2015 Comp Metabolic Qbt275 K 3.3 mEq/L 05/31/2015 Comp Metabolic Rvg193 CL 99 mEq/L 05/31/2015 Comp Metabolic Yje169 CO2 30.0 mEq/L 05/31/2015 Comp Metabolic Gqg488 AN ION GAP 14 05/31/2015 Comp Metabolic Ztq456 GL UCOSE 70 mg/dL 05/31/2015 Comp Metabolic Wua062 Cr eat 1.0 mg/dL 05/31/2015 Comp Metabolic Cee446 eG FR 55 ml/min/1.73m2 05/31 Comp Metabolic Shz011 BUN 23 mg/dL 05/31/2015 Comp Metabolic Nea242 B/ C Ratio 22.1 Ratio 05/31/2015 Comp Metabolic Zkl779 CA LCIUM 8.9 mg/dL 05/31/2015 Comp Metabolic Wwr718 AL K PHOS 86 U/L 05/31/2015 Comp Metabolic Ikt706 T(SGOT) 28 U/L 05/31/2015 Comp Metabolic Gou093 AL T(SGPT) 30 U/L 05/31/2015 Comp Metabolic Cdi913 BI LI T 0.4 mg/dL 05/31/2015 Comp Metabolic Ypa105 AL BUMIN 3.3 g/dL 05/31/2015 Comp Metabolic Uki107 TP RO 6.0 g/dL 05/31/2015 Comp Metabolic Vqy528 GL OB 2.7 g/dL 05/31/2015 Comp Metabolic Jnk225 A/ G Ratio 1.2 Ratio 05/31/2015 Comp Metabolic Ung344 Os mo 282 mOsmo 05/31/2015 Pt Dct9162 PT 23.3 seconds 04/15/2015 Pt Yho7097 INR 2.2 04/15/2015 Pt Ybv8923 Low Intensity - 1.5-2.0 04/15/2015 Pt Ltk0603 Mod intensity - 2.0-3.0 04/15/2015 Pt Fqz2426 Hi intensity - 3.0-4.0 04/15/2015 Pt Ovc4282 PT 19.5 seconds 04/04/2015 Pt Xwt5641 INR 1.7 04/04/2015 Pt Nrx7779 Low Intensity - 1.5-2.0 04/04/2015 Pt Xtk5930 Mod intensity - 2.0-3.0 04/04/2015 Pt Mji3928 Hi intensity - 3.0-4.0 04/04/2015 Pt Swo6679 PT 39.8 seconds 04/01/2015 Pt Fgn7075 INR 4.3 04/01/2015 Pt Zfq1266 Low Intensity - 1.5-2.0 04/01/2015 Pt Gnh9830 Mod intensity - 2.0-3.0 04/01/2015 Pt Mek5906 Hi intensity - 3.0-4.0 04/01/2015 Metabolic Ord15 [...] Metabolic Ord15 CALCIUM 8.7 mg/dL 02/28/2015 Pt Mse8634 PT 31.4 seconds 02/28/2015 Pt Rmz8481 INR 3.2 02/28/2015 Pt Acl7841 Low Intensity - 1.5-2.0 02/28/2015 Pt Xmq5590 Mod intensity - 2.0-3.0 02/28/2015 Pt Elp9089 Hi intensity - 3.0-4.0 02/28/2015 Pt Tpl1659 PT 23.2 seconds 01/18/2015 Pt Ihb0218 INR 2.1 01/18/2015 Pt Vuj9010 Low Intensity - 1.5-2.0 01/18/2015 Pt Yzd7363 Mod intensity - 2.0-3.0 01/18/2015 Pt Hkm1959 Hi intensity - 3.0-4.0 01/18/2015 Pt Cym0600 PT 18.2 seconds 01/10/2015 Pt Asx5547 INR 1.6 01/10/2015 Pt Rcc8709 Low Intensity - 1.5-2.0 01/10/2015 Pt Wcb8765 Mod intensity - 2.0-3.0 01/10/2015 Pt Prn7392 Hi intensity - 3.0-4.0 01/10/2015 Review of [...] 10/27/2018 URINALYSIS NONAUTO W /O SCOPE CPT-4: 71135 10/27/2018 ADMIN INFLUENZA VIRU S VAC CPT-4: G0008 03/24/2018 ADMIN PNEUMOCOCCAL V ACCINE SNOMED CT: 91637840 CPT-4: G0009 03/24/2018 FLU VACC PRSV FREE I NC ANTIG Formatting Model/CDA Sections, Assigned to/Dorothea Tan CPT-4: 33405Edcwdzl 03/24/2018 Pneumococcal Polysac charide Vaccine, 23-Valent, Ad CPT-4: 50240 03/24/2018 TRIAMCINOLONE ACET I [place] NOS CPT-4: J3301 06/15/2017 THER/PROPH/DIAG INJ SC/IM CPT-4: 48377 06/15/2017 ADMIN PNEUMOCOCCAL V ACCINE SNOMED CT: 12140760 CPT-4: G0009 03/16/2017 ADMIN INFLUENZA VIRU S VAC CPT-4: G0008 03/16/2017 FLU VAC NO PRSV 4 VA L 3 YRS+ CPT-4: 87090 03/16/2017 PNEUMOCOCCAL VACC [address]: 63125564 CPT-4: 39570 03/16/2017 URINALYSIS NONAUTO W /O SCOPE CPT-4: 01784 08/26/2016 THER/PROPH/DIAG INJ SC/IM CPT-4: 68257 07/22/2016 TRIAMCINOLONE ACET I [place] NOS CPT-4: J3301 07/22/2016 ROCEPHIN, PER 250 MG CPT-4: J0696 07/22/2016 TRIAMCINOLONE ACET I [place] NOS CPT-4: J3301 02/05/2015 Vital Signs Date Vital 11/17/2018 Blood Pressure 1: 102/62 Code: 8480-6 BMI: 32.4 Code: 96636-8 Heart Rate 1: 83 bpm Height: 5'7" SpO2: 94% Weight: 207 lbs 10/27/2018 Blood Pressure 1: 120/74 Code: 8480-6 BMI: 32.4 Code: 86826-3 Heart Rate 1: 65 bpm Height: 5'7" SpO2: 97% Weight: 207 lbs 09/27/2018 Blood Pressure 1: 128/74 Code: 8480-6 BMI: 32.4 Code: 28006-5 Heart Rate 1: 92 bpm Height: 5'7" SpO2: 97% Weight: 207 lbs 08/16/2018 Blood Pressure 1: 104/66 Code: 8480-6 BMI: 32.3 Code: 23591-9 Heart Rate 1: 94 bpm Height: 5'7" SpO2: 96% Weight: 206 lbs 07/11/2018 Blood Pressure 1: 102/68 Code: 8480-6 BMI: 34.5 Code: 94197-6 Heart Rate 1: 101 bpm Height: 5'7" SpO2: 98% Weight: 220 lbs 03/24/2018 Blood Pressure 1: 130/72 Code: 8480-6 BMI: 33.4 Code: 16594-2 Heart Rate 1: 82 bpm Height: 5'7" SpO2: 93% Weight: 213 lbs 11/18/2017 Blood Pressure 1: 128/70 Code: 8480-6 BMI: 33.6 Code: 87388-1 Heart Rate 1: 98 bpm Height: 5'7" SpO2: 97% Weight: 214 lbs 8 oz 09/30/2017 Blood Pressure 1: 100/50 Code: 8480-6 BMI: 34.0 Code: 21315-5 Heart Rate 1: 66 bpm Height: 5'7" SpO2: 96% Weight: 217 lbs 08/17/2017 Blood Pressure 1: 104/60 Code: 8480-6 BMI: 33.7 Code: 52570-4 Heart Rate 1: 99 bpm Height: 5'7" SpO2: 97% Weight: 215 lbs 06/15/2017 Blood Pressure 1: 120/64 Code: 8480-6 BMI: 33.5 Code: 09392-3 Heart Rate 1: 91 bpm Height: 5'7" SpO2: 94% Weight: 214 lbs 04/01/2017 Blood Pressure 1: 110/68 Code: 8480-6 BMI: 154.4 Code: 99582-2 Heart Rate 1: 66 bpm Height: 2'7" SpO2: 95% Weight: 211 lbs 03/16/2017 Blood Pressure 1: 130/72 Code: 8480-6 BMI: 33.0 Code: 49489-8 Heart Rate 1: 95 bpm Height: 5'7" SpO2: 97% Weight: 211 lbs 02/09/2017 Blood Pressure 1: 120/70 Code: 8480-6 BMI: 32.9 Code: 46225-4 Heart Rate 1: 78 bpm Height: 5'7" SpO2: 96% Weight: 210 lbs 10/13/2016 Blood Pressure 1: 118/76 Code: 8480-6 BMI: 32.6 Code: 21180-8 Heart Rate 1: 97 bpm Height: 5'7" SpO2: 98% Weight: 208 lbs 07/31/2016 Blood Pressure 1: 110/64 Code: 8480-6 BMI: 32.1 Code: 05806-1 Heart Rate 1: 79 bpm Height: 5'7" SpO2: 94% Weight: 205 lbs 07/22/2016 Blood Pressure 1: 108/74 Code: 8480-6 BMI: 32.1 Code: 54038-1 Heart Rate 1: 71 bpm Height: 5'7" SpO2: 97% Temperature: 36.9 (C ) / 98.4 (F) Weight: 205 lbs 05/01/2016 Blood Pressure 1: 120/72 Code: 8480-6 BMI: 32.7 Code: 28670-7 Heart Rate 1: 75 bpm Height: 5'7" SpO2: 94% Weight: 209 lbs 04/06/2016 Blood Pressure 1: 106/62 Code: 8480-6 BMI: 32.7 Code: 04859-8 Heart Rate 1: 83 bpm Height: 5'7" SpO2: 97% Weight: 209 lbs 03/06/2016 Blood Pressure 1: 112/68 Code: 8480-6 BMI: 32.7 Code: 72035-9 Heart Rate 1: 90 bpm Height: 5'7" SpO2: 97% Weight: 209 lbs 03/03/2016 Blood Pressure 1: 120/62 Code: 8480-6 BMI: 32.7 Code: 55589-8 Heart Rate 1: 92 bpm Height: 5'7" SpO2: 98% Weight: 209 lbs 02/07/2016 Blood Pressure 1: 110/64 Code: 8480-6 BMI: 32.7 Code: 88234-1 Heart Rate 1: 87 bpm Height: 5'7" SpO2: 97% Weight: 209 lbs 12/13/2015 Blood Pressure 1: 110/64 Code: 8480-6 BMI: 33.5 Code: 75545-8 Heart Rate 1: 90 bpm Height: 5'7" SpO2: 97% Weight: 214 lbs 12/03/2015 Blood Pressure 1: 132/76 Code: 8480-6 BMI: 33.4 Code: 67803-3 Heart Rate 1: 82 bpm Height: 5'7" SpO2: 99% Weight: 213 lbs 11/20/2015 Blood Pressure 1: 108/68 Code: 8480-6 BMI: 32.4 Code: 58403-6 Heart Rate 1: 77 bpm Height: 5'7" SpO2: 97% Weight: 207 lbs 09/17/2015 Blood Pressure 1: 122/76 Code: 8480-6 BMI: 33.0 Code: 42868-6 Heart Rate 1: 91 bpm Height: 5'7" SpO2: 97% Weight: 211 lbs 05/31/2015 Blood Pressure 1: 128/82 Code: 8480-6 BMI: 33.4 Code: 75313-5 Heart Rate 1: 98 bpm Height: 5'7" SpO2: 99% Weight: 213 lbs 02/05/2015 Blood Pressure 1: 128/80 Code: 8480-6 BMI: 32.6 Code: 98253-8 Heart Rate 1: 86 bpm Height: 5'7" SpO2: 97% Weight: 208 lbs 11/20/2014 Blood Pressure 1: 128/90 Code: 8480-6 BMI: 30.9 Code: 89300-2 Heart Rate 1: 94 bpm Height: 5'7" [...] Findings Denies fever 05/31/2015 None hypothyroid Quality [facility] consultant silvestre 02/05/2015 None hypothyroid Pertinent Findings coarse [...] Denies extremity weakness 11/20/2014 None hypothyroid Quality [employer] consultant silvestre 11/20/2014 None hypothyroid Pertinent Findings coarse hair 11/20/2014 None hypothyroid Pertinent Findings dry skin 11/20/2014 None hypothyroid Pertinent Findings hair loss 11/20/2014 None edema Quality intermitte nt 11/20/2014 None edema Location on both l egs 11/20/2014 None edema Location on both a nkles 11/20/2014 None Advance Directives No Advance Directive data Encounters Encounter Performer Loca tion Codes Date ([id number]) [id number] EST. 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 P ATIENT, LEVEL III Diagnosis: Urinary tract infection, site not specified[ICD10: N39.0] [facility] CPT-4: 20666 10/27/2018 [id number]) 75877 EST. 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 P ATIENT, LEVEL IV Diagnosis: Atrophy of thyroid (acquired)[ICD10: E03.4] Diagnosis: Essential (primary) hypertension[ICD10: I10] Diagnosis: Other fatigue[ICD10: R53.83] Diagnosis: Localized edema[ICD10: R60.0] Valerie Pisano MD, [facility] CPT-4: 47616 07/11/2018 ([id number]) 91365 EST. P ATIENT, LEVEL IV Diagnosis: Essential (primary) hypertension[ICD10: I10] Diagnosis: Atrophy of thyroid (acquired)[ICD10: E03.4] Diagnosis: Chronic atrial fibrillation[ICD10: I48.2] Valerie Pisano [facility] CPT-4: 37813 03/24/2018 ([id number]) 25018 EST. P ATIENT, LEVEL IV Diagnosis: Essential (primary) hypertension[ICD10: I10] Diagnosis: Atrophy of thyroid (acquired)[ICD10: E03.4] Diagnosis: Chronic atrial fibrillation[ICD10: I48.2] Valerie Pisano [facility] CPT-4: 24905 11/18/2017 [id number] EST. PATIENT, LEVEL IV Diagnosis: Localized edema[ICD10: R60.0] Roxie Pisano MD, [facility] CPT-4: 94394 09/30/2017 ([id number]) 06551 EST. P ATIENT, LEVEL III Diagnosis: Essential (primary) hypertension[ICD10: I10] Valerie Pisano MD, [facility] CPT-4: 27388 08/17/2017 ([id number]) 22646 EST. P ATIENT, LEVEL IV Diagnosis: Essential (primary) hypertension[ICD10: I10] Diagnosis: Atrophy of thyroid (acquired)[ICD10: E03.4] Diagnosis: Chronic atrial fibrillation[ICD10: I48.2] Diagnosis: Cervicalgia[ICD10: M54.2] Diagnosis: Other muscle spasm[ICD10: M62.838] Valerie Pisano MD, [facility] CPT- 4: 11642 06/15/2017 77866 EST. PATIENT, LEVEL III Diagnosis: Laceration without foreign body of other finger without damage to nail, initial encounter[ICD10: S61.218A] Roxie Pisano MD, [facility] CPT-4: 29147 04/01/2017 ([id number]) 06004 EST. P ATIENT, LEVEL IV Diagnosis: Chronic atrial fibrillation[ICD10: I48.2] Diagnosis: [facility] (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[ICD10: Z79.01] Diagnosis: Encounter for immunization[ICD10: Z23] Diagnosis: Atrophy of thyroid (acquired)[ICD10: E03.4] Valerie Pisano MD, C CPT-4: 93249 03/16/2017 ([id number]) 42206 EST. P ATIENT, LEVEL IV Diagnosis: Chronic atrial fibrillation[ICD10: I48.2] Diagnosis: Essential (primary) hypertension[ICD10: I10] Diagnosis: Other fatigue[ICD10: R53.83] Diagnosis: [facility] (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[ICD10: Z79.01] Diagnosis: Atrophy of thyroid (acquired)[ICD10: E03.4] Valerie Pisano MD, [facility] CPT-4: 84922 02/09/2017 ([id number]) 46001 EST. P ATIENT, LEVEL IV Diagnosis: Essential (primary) hypertension[ICD10: I10] Diagnosis: Chronic atrial fibrillation[ICD10: I48.2] Diagnosis: Tinea corporis[ICD10: B35.4] Diagnosis: [facility] (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[ICD10: Z79.01] Diagnosis: Other skin changes[ICD10: R23.8] Valerie Pisano MD, [facility] CPT-4: 86776 10/13/2016 [id number] EST. PATIENT, LEVEL III Diagnosis: Other acute sinusitis[ICD10: J01.80] Diagnosis: Other allergic rhinitis[ICD10: J30.89] Roxie Pisano MD, [facility] CPT-4: 21960 07/31/2016 ([id number]) 99575 EST. P ATIENT, LEVEL III Diagnosis: Acute recurrent maxillary sinusitis[ICD10: J01.01] Valerie Pisano MD [facility] CPT-4: 42594 07/22/2016 03488 EST. PATIENT, LEVEL IV Diagnosis: Essential (primary) hypertension[ICD10: I10] Diagnosis: Other allergic rhinitis[ICD10: J30.89] Diagnosis: Localized edema[ICD10: R60.0] Roxie Pisano MD, [facility] CPT-4: 59289 05/01/2016 56382 EST. PATIENT, LEVEL III Diagnosis: Cellulitis of left lower limb[ICD10: L03.116] Diagnosis: Localized edema[ICD10: R60.0] Roxie Pisano MD, [facility] CPT-4: 43995 04/06/2016 ([id number]) Miscellaneou s no charge Diagnosis: Cellulitis of left lower limb[ICD10: L03.116] Diagnosis: Localized edema[ICD10: R60.0] Roxie Pisano MD, [facility] CPT-4: 79866 03/10/2016 ([id number]) Miscellaneou s no charge Diagnosis: Cellulitis of left lower limb[ICD10: L03.116] Roxie Pisano MD, [facility] CPT-4: 90444 03/06/2016 14396 EST. PATIENT, LEVEL IV Diagnosis: Cellulitis of left lower limb[ICD10: L03.116] Diagnosis: Localized edema[ICD10: R60.0] Roxie Pisano MD, [facility] CPT-4: 91433 03/03/2016 ([id number]) 60605 EST. P ATIENT, LEVEL III Diagnosis: Essential (primary) hypertension[ICD10: I10] Diagnosis: 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[ICD10: Z79.01] Diagnosis: Chronic atrial fibrillation[ICD10: I48.2] Brielle Pisano MD, [facility] CPT-4: 21783 02/07/2016 ([id number]) 61358 EST. P ATIENT, LEVEL III Diagnosis: Iliotibial band syndrome, right leg[ICD10: M76.31] Diagnosis: Localized edema[ICD10: R60.0] Brielle Pisano MD, [facility] CPT- 4: 51154 12/13/2015 ([id number]) 66810 EST. P ATIENT, LEVEL III Diagnosis: Localized edema[ICD10: R60.0] Diagnosis: Essential (primary) hypertension[ICD10: I10] Brielle Pisano MD, [facility] CPT-4: 25734 12/03/2015 ([id number]) 27696 EST. P ATIENT, LEVEL IV Diagnosis: 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[ICD10: Z79.01] Diagnosis: Other skin changes[ICD10: R23.8] Diagnosis: Localized edema[ICD10: R60.0] Diagnosis: Pain in right foot[ICD10: M79.671] Valerie Pisano MD, [facility] CPT- 4: 39765 11/20/2015 11187 EST. PATIENT, LEVEL IV Diagnosis: Essential (primary) hypertension[ICD10: I10] Diagnosis: [facility] (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[ICD10: Z79.01] Diagnosis: Muscle spasm of back[ICD10: M62.830] Roxie Pisano MD, [facility] CPT- 4: 82935 09/17/2015 ([id number]) 85115 EST. P ATIENT, LEVEL IV Diagnosis: Localized edema[ICD10: R60.0] Diagnosis: Other specified hypothyroidism[ICD10: E03.8] Diagnosis: Essential (primary) hypertension[ICD10: I10] Brielle Pisano MD, [facility] CPT-4: 83400 05/31/2015 ([id number]) 59921 EST. P ATIENT, LEVEL III Diagnosis: ALLERGIC RHINITIS[ICD9: 477.9] Diagnosis: ESSENTIAL HYPERTENSION[ICD9: 401.9] [facility] CPT-4: 22365 02/05/2015 ([id number]) OFFICE [facility] - [facility] 4 Diagnosis: ESSENTIAL HYPERTENSION[ICD9: 401.9] Diagnosis: HYPOTHYROIDISM[ICD9: 244.9] Diagnosis: ACTINIC KERATOSIS[ICD9: 702.0] [facility] CPT-4: 42942 11/20/2014 Plan of Care Planned Activity Notes C odes Status Date Visit Plan: Contusion -right lower leg -continue to monitor symptoms -call if does not resolve or other symptoms develop. Patient verbalized understanding of plan. diamond polisher use of anti coagulants -check PT/INR 11/17/2018 Patient Education: Patient Medication Summary Completed 11/17/2018 Visit Plan: UTI - pt with positive urinalysis - culture sent if appropriate. Antibiotic electronically prescribed to pt's pharmacy of choice. Pt to call if symptoms do not improve. 10/27/2018 Appointment: Brielle Cavazos WPtel: [address] [place], [place] [phone] (10 min) Simple 10/27/2018 Patient Education: Patient [...] Hernandez. 09/27/2018 Appointment: Valerie Pisano WPtel: [phone] [facility] (15 min) Moderate 09/27/2018 Patient [...] 4mg daily. 08/16/2018 Appointment: Valerie Pisano WPtel: [phone] [phone] (15 min) Moderate 08/16/2018 Patient Education: Patient Medication Summary Completed 08/16/2018 Patient Education: Hypertension Completed 08/16/2018 Patient Education: Patient Medication Summary Completed 07/29/2018 Appointment: Brielle Cavazos WPtel: [phone] [phone] (15 min) Moderate 07/12/2018 Visit Plan: Hypertension [...] daily. 07/11/2018 App[facility]ment[phone] (15 min) Moderate 07/11/2018 Patient [...] given today. 03/24/2018 Appointment: Valerie Pisano WPtel: [address] [place], [place] [phone] (15 min) Moderate 03/24/2018 Patient [...] of control. 11/18/2017 Appointment: Valerie Pisano WPtel: [address] [place], [place] [phone] (15 min) Moderate 11/18/2017 Patient Education: Patient Medication Summary Completed 11/18/2017 Referral: [facility] WPtel: [address] [place] [address] Pt notified at appointment Appointment Confirmed 10/01/2017 [...] Unna Boots 09/30/2017 Appointment: Roxie Cazares WPtel: [address] [place], [place] [phone] (30 min) Complex 09/30/2017 Patient Education: Patient Medication Summary Completed 09/30/2017 Care Plan: Referral Order SNOMED-CT : [id number] Pending 09/30/2017 Visit Plan: Hypertension - well [...] time. 08/17/2017 Appointment: [phone] [facility] (15 min) Moderate 08/17/2017 Patient [...] therapy - will refer to [facility]. RX for voltaren to neck muscles. allergies - kenalog 40mg im [employer] squibb - lot # [id number] expires september 2018 06/15/2017 Visit Plan: Hypertension [...] therapy - will refer to [facility]. RX for voltaren to neck muscles. 06/15/2017 Appointment: [facility]el[phone] [facility] (15 min) Moderate 06/15/2017 Patient Education: Patient Medication Summary Completed 06/15/2017 Care Plan: Referral Order SNOMED-CT : [id number] Pending 06/15/2017 Appointment: Nurse Visit 04/05/2017 Appointment: [...] booster. 04/01/2017 Appointment: [phone] [place] (15 min) Moderate 04/01/2017 Patient [...] today 03/16/2017 Appointment: [phone] [facility] [place] (15 min) Moderate 03/16/2017 Patient Education: [...] allergy spray. 02/09/2017 Appointment: Valerie Pisano WPtel: [address] [place], [place] [address] (15 min) Moderate 02/09/2017 Patient Education: Patient [...] for nystatin 10/13/2016 Appointment: Valerie Pisano WPtel: [phone] [phone] (15 min) Moderate 10/13/2016 Patient Education: Patient Medication Summary Completed 10/13/2016 Patient Education: Obesity Completed 10/13/2016 Patient Education: Hypertension Completed 10/13/2016 Care Plan: Urine Culture Pending 08/31/2016 Appointment: Roxie Cazares WPtel: [phone] [phone] Lab Draw 08/27/2016 Appointment: Nurse Visit 08/26/2016 [...] spray. 07/31/2016 Appointment: Brielle Cavazos WPtel: [phone] [phone] [place] (30 min) Complex 07/31/2016 Patient Education: Patient Medication Summary Completed 07/31/2016 Patient Education: Obesity Completed 07/31/2016 Visit Plan: Sinusitis - Pt has acut e infection - pain in face, maxillary region, Pt informed to use decongestant, RX given to patient, sinus rinses also recommended. Call if symptoms do not show improvement. 07/22/2016 Appointment: Valerie Pisano WPtel: [phone] [phone] (15 min) Moderate 07/22/2016 Patient Education: Patient [...] edema. 05/01/2016 Appointment: Brielle Cavazos WPtel: [phone] [phone] (30 min) Complex 05/01/2016 Patient Education: Patient [...] edema. 04/06/2016 Appointment: Roxie Cazares WPtel: [phone] [phone] (30 min) Complex 04/06/2016 Patient Education: Patient Medication Summary Completed 04/06/2016 Patient Education: Obesity Completed 04/06/2016 Visit Plan: left foot - improved - pt finished with antibiotics - continue to monitor - notify clinic with any concerns. Repeat INR today. 03/10/2016 Appointment: Brielle Cavazos WPtel: [facility] [place] [address] (30 min) Complex 03/10/2016 Patient Education: Patient Medication Summary Completed 03/10/2016 Visit Plan: Cellulitis - continue w ith oral antibiotics as previously directed, return to clinic as previously directed, call for acute change in symptoms, worsening redness, warmth, discharge. 03/06/2016 Appointment: Brielle Cavazos WPtel: [address] [place] [address] (15 min) Moderate 03/06/2016 Patient Education: Patient Medication Summary Completed 03/06/2016 Patient Education: Obesity Completed 03/06/2016 Visit Plan: Cellulitis - continue w [facility] oral antibiotics as previously directed, return to clinic as previously directed, call for acute change in symptoms, worsening redness, warmth, discharge. 03/03/2016 Appointment: Brielle Cavazos WPtel: [address] [place] [address] (15 min) Moderate 03/03/2016 Patient Education: Patient [...] 3.5. 02/07/2016 Appointment: Brielle Cavazos WPtel: [address] [place] [address] (30 min) Complex 02/07/2016 Patient Education: Patient Medication Summary Completed 02/07/2016 Patient Education: Obesity Completed 02/07/2016 Patient Education: Hypertension Completed 02/07/2016 Appointment: Brielle Cavazos WPtel: [address] [place], [place] [phone] [place] [address] (30 min) Complex 02/04/2016 Visit Plan: Iliotibial [...] peripheral edema. 12/13/2015 Appointment: Brielle Cavazos WPtel: [facility] [place] [address] (15 min) Moderate 12/13/2015 Patient Education: Patient [...] at home. 12/03/2015 Appointment: Brielle Cavazos WPtel: [address] [place], [place] [phone] (30 min) Complex 12/03/2015 Patient Education: Patient [...] Hypertension Completed 02/05/2015 Appointment: Valerie Pisano WPtel: [facility] (15 min) Moderate 01/29/2015 Visit [...] control. 11/20/2014 Appointment: [facility]isano [facility]Ptel: [phone] [facility] [place] ([place]) New Patient 11/20/2014 Patient Education: Patient Medication Summary Completed 11/20/2014 Patient Education: Hypertension Completed 11/20/2014 Patient Education: Patient Medication Summary Completed 10/19/2014 Referral: [facility] WPtel: Referral Appointment Requested Referral: [facility] Referral Appointment Confirmed Instructions Comment CHECK LABS TODAY-WE WILL CALL YOU AFTER [...] readings at home. . left foot - [facility] ed - pt finished with antibiotics - [...] twice daily. get blood work one w [place] before next appt - fasting labs Decrease [...] of control. 1 pill mon/wed/wed, 1/2 pill // sat/sun take - This [...] therapy - will refer to [facility]. RX for voltaren to neck muscles. allergies - kenalog 40mg im [employer] squib[employer] - lot # [id number] expires september 2018 . Hypertension - wel [...] therapy - will refer to [facility]. RX for voltaren to neck [...]
--- OUTSIDE RECORDS SUMMARY | 2019-09-12 11:09 | XMS REPORT | CCD ---
Author Author Clara Pisano Organization [facility] Address [address] [place] [address] Phone Care Team Providers Care Senior Business Architect Name Role Phone PP Unavailable CCM Unavailable Summary Purpose Interface Exchange Insurance Providers Payer name Policy type / Coverage type Covered democrat ID Effective Begin Date Effective End Date WPS Medicare Part B Medicare Part B [id number] 2018 Unknown [employer] Medicare Part B [id number] Unknown Family history Sister Diagnosis Age At Onset defect Unknown Breast cancer Unknown Daughter Diagnosis Age At Onset Breast cancer Unknown Mother Diagnosis Age At Onset No Family Disease Entered N/A Social History Social History Element Codes Description Effective Dates Marital status Unknown M [address] 11/20/2014 Number of children Unknown 6 11/20/2014 Employment Unknown Retir ed 11/20/[address]: 1566345 Quit over 10 years ago 1963 11/20/2014 [...] ICD-9: 401.9 ICD-10: I10 Active 04/30/2016 Unknown [facility] (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 ICD-9: V58.61 ICD-10: [...] Unknown HYPOTHYROIDISM ICD-9: 244.9 Active 11/19/2014 Unknown [facility] current us 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 therapy ICD-9: V58.61 Active 10/19/2014 Unknown Problems Condition Codes Effectiv e Dates Condition Status Urinary tract infect ion, site not specified ICD-9: 599.0 ICD-10: N39.0 02/13/2016 Active Atrophy of thyroid ( acquired) ICD-9: 244.8 ICD-10: E03.4 02/09/2017 Active Chronic atrial fibri llation ICD-9: 427.31 ICD-10: I48.2 02/06/2016 Active Essential (primary) hypertension ICD-9: 401.9 ICD-10: I10 04/30/2016 Active [facility] (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 ICD-9: V58.61 ICD-10: [...] 11/19/2014 Active HYPOTHYROIDISM ICD-9: 244.9 11/19/2014 Active [facility] current us 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 therapy ICD-9: V58.61 10/19/2014 Active Medications Medication Codes Instruc tions Start Date Stop Date Sta Fill Instructions doxycycline hyclate 100 mg capsule RxNorm: 6212532 1 Capsule(s) PO BID 10/31/2018 10/30/2018 In active doxycycline hyclate 100 mg capsule RxNorm: 5904124 1 Capsule(s) PO BID 10/31/2018 11/06/2018 In active Keflex 500 mg capsule RxNorm: 894646 1 Capsule(s) PO TID 10/27/2018 10/30/2018 Inactive ceftriaxone 500 mg s olution for injection RxNorm: 9500039 Inj 10/27/2018 10/27/2018 Inactive Coumadin 4 mg tablet RxNorm: 686058 1 Tablet(s) PO daily 08/16/2018 08/10/2019 Active this is an update to her RX - she will l et you know when she needs refill triamcinolone aceton sreekanth 0.025 % topical cream RxNorm: 6147156 1 Application TOP QI D 08/16/2018 No Stop Date Active levothyroxine 125 mc g tablet RxNorm: 921481 TAKE ONE TABLET BY MO [facility] DAILY ON WEDNESDAY, WED, AND WEDNESDAY, AND 1/2 TABLET ON , , WED AND WEDNESDAY. TAKE ON AN EMPTY STOMACH 08/04/2018 04/30/2019 Active meclizine 25 mg tablet RxNorm: 150494 1 Tablet(s) PO TID as needed Dizziness 07/22/2018 No Stop Date Active meclizine 25 mg tablet RxNorm: 911523 1 Tablet(s) PO TID as needed Dizziness 07/19/2018 07/21/2018 In active furosemide 40 mg tablet RxNorm: 741638 1 Tablet(s) BID take 1.5 tabs twice a da y x 7 days then 1 pill daily thereafter 07/11/2018 02/05/2019 Active Coumadin 4 mg tablet RxNorm: 046084 1 Tablet(s) PO daily except 1.5 pills on WEDNESDAY AND Wednesday07/11/2018 08/15/2018 Inactive this is an update to her RX - she will let you know when she needs refill warfarin 5 mg tablet RxNorm: 872421 Tablet(s) TAKE ONE TABLET BY MOUTH DAILY EXCEPT T/TH TAKE 4 MG 04/06/2018 08/22/2019 Active diltiazem 60 mg tablet RxNorm: 670374 1/2 Tablet(s) PO QID 03/24/2018 No Stop Date Active levothyroxine 125 mc g tablet RxNorm: 989483 TAKE ONE TABLET BY MO [facility] DAILY ON WEDNESDAY, WED, AND WEDNESDAY, AND 1/2 TABLET ON , , WED AND WEDNESDAY. TAKE ON AN EMPTY STOMACH 02/02/2018 07/31/2018 Inactive Coumadin 4 mg tablet RxNorm: 246787 TAKE ONE TABLET BY MOUTH DAILY ON AND Wednesday10/14/2017 07/10/2018 Inactive nystatin 100,000 uni t/gram topical cream RxNorm: 367275 1 Application TOP TID 08/17/2017 No Stop Date Active Voltaren 1 % topical gel RxNorm: 842924 2 Gram(s) TOP TID luiz ly to shoulder and neck 08/17/2017 No Stop Date Active triamcinolone aceton sreekanth 0.025 % topical cream RxNorm: 8345984 1 Application TOP BI D 08/17/2017 08/15/2018 In active levothyroxine 125 mc g tablet RxNorm: 704176 1 Tablet(s) UD 1 pill wed/wed/wed, 1/2 pill //wed/wed take ON AN EMPTY STOMACH 08/05/2017 02/01/2018 Inactive Coumadin 4 mg tablet RxNorm: 613091 1 Tablet(s) PO Wed/urs 07/29/2017 10/13/2017 Inactive warfarin 5 mg tablet RxNorm: 189879 TAKE 1 AND 1/2 TABLETS BY MOUTH ON AND WEDNESDAY. TAKE ONLY 1 TABLET BY MOUTH ALL OTHER DAYS OF THE WEEK 07/12/2017 04/05/2018 In active furosemide 40 mg tablet RxNorm: 272208 Tablet(s) BID TAKE ONE TABLET BY MOUTH D AILY 06/15/2017 07/10/2018 Inactive Voltaren 1 % topical gel RxNorm: 740778 2 Gram(s) TOP TID luiz ly to shoulder and neck 06/15/2017 08/16/2017 Inactive Keflex 500 mg capsule RxNorm: 678990 1 Capsule(s) PO TID 04/01/2017 04/07/2017 Inactive furosemide 40 mg tablet RxNorm: 386743 TAKE ONE TABLET BY MOUTH DAILY 03/18/2017 06/14/2017 In active Claritin-D 12 Hour 5 mg-120 mg tablet,extended release RxNorm: 2697158 1 Tablet(s) PO BID 03/16/2017 05/14/2017 Inactive Lipitor 20 mg tablet RxNorm: 841857 1 Tablet(s) PO daily 02/09/2017 03/10/2017 Inactive lisinopril 2.5 mg ta blet RxNorm: 307595 1 Tablet(s) PO daily 02/09/2017 03/10/2017 Inactive Nasonex 50 mcg/actua tion [place] RxNorm: 0575984 1 [place] NASAL BID 02/09/2017 09/06/2017 Inactive levothyroxine 125 mc g tablet RxNorm: 377448 1 Tablet(s) UD 1 pill wed/wed/wed, 1/2 pill //sat/sun take ON AN EMPTY STOMACH 02/09/2017 08/04/2017 Inactive fluorouracil 5 % top ical cream RxNorm: 223706 1 Application TOP BID 02/09/2017 02/18/2017 Inactive potassium chloride E R 20 mEq tablet,extended release RxNorm: 173914 Tablet(s) TAKE ONE TABLET BY MOUTH DAILY 02/08/2017 02/02/2018 Inactive warfarin 5 mg tablet RxNorm: 181202 TAKE 1 AND 1/2 TABLETS BY MOUTH ON AND WEDNESDAY. TAKE ONLY 1 TABLET BY MOUTH ALL OTHER DAYS OF THE WEEK 12/14/2016 05/30/2017 In active potassium chloride E R 20 mEq tablet,extended release RxNorm: 479524 TAKE ONE TABLET BY MOUTH DAILY 10/29/2016 01/26/2017 Inactive warfarin 5 mg tablet RxNorm: 076804 TAKE 1 AND 1/2 TABLETS BY MOUTH ON AND WEDNESDAY. TAKE ONLY 1 TABLET BY MOUTH ALL OTHER DAYS OF THE WEEK 10/27/2016 12/13/2016 In active nystatin 100,000 uni t/gram topical cream RxNorm: 625353 1 Application TOP TID 10/13/2016 08/16/2017 In active nitrofurantoin 50 mg capsule RxNorm: 174868 1 Capsule(s) PO BID 09/04/2016 09/03/2016 Inactive nitrofurantoin macro crystal 50 mg capsule RxNorm: 442507 1 Capsule(s) PO BID 09/04/2016 09/10/2016 In active Cipro 500 mg tablet RxNorm: 052522 1 Tablet(s) PO BID 08/26/2016 10/12/2016 Inactive Zyrtec 10 mg tablet RxNorm: 2665011 1 Tablet(s) PO daily 07/31/2016 08/29/2016 Inactive prednisone 20 mg tablet RxNorm: 559601 2 Tablet(s) PO daily 07/31/2016 08/02/2016 Inactive Kenalog 40 mg/mL zohra pension for injection RxNorm: 4844704 Milliliter(s) Inj 07/22/2016 07/22/2016 In active ceftriaxone 500 mg s olution for injection RxNorm: 3877113 Inj 07/22/2016 07/22/2016 Inactive Flonase Allergy Reli ef 50 mcg/actuation nasal spray,suspension RxNorm: 1497951 1 [place] NASAL BID 07/22/2016 08/20/2016 Inactive azithromycin 250 mg tablet RxNorm: 756179 2 Tablet(s) PO on day #1, then 1 pill daily x 4 days 07/22/2016 10/12/2016 Inactive warfarin 5 mg tablet RxNorm: 755775 TAKE 1 AND 1/2 TABLETS BY MOUTH ON AND WEDNESDAY. TAKE ONLY 1 TABLET BY MOUTH ALL OTHER DAYS OF THE WEEK 07/09/2016 09/30/2016 In active levothyroxine 125 mc g tablet RxNorm: 933154 Tablet(s) TAKE ONE TA BLET BY MOUTH DAILY ON AN EMPTY STOMACH 06/23/2016 02/08/2017 Inactive levothyroxine 125 mc g tablet RxNorm: 252320 TAKE ONE TABLET BY MO [facility] DAILY ON AN EMPTY STOMACH 06/23/2016 06/22/2016 Inactive levothyroxine 125 mc g tablet RxNorm: 584258 TAKE ONE TABLET BY MO [facility] DAILY ON AN EMPTY STOMACH 06/23/2016 08/04/2017 Inactive cetirizine 10 mg tablet RxNorm: 2330562 TAKE ONE TABLET BY MOUTH DAILY 06/16/2016 10/13/2016 In active furosemide 40 mg tablet RxNorm: 248695 Tablet(s) TAKE ONE TABLET BY MOUTH DAILY 06/05/2016 12/01/2016 In active cetirizine 10 mg tablet RxNorm: 4432148 1 Tablet(s) PO daily 05/01/2016 05/30/2016 Inactive Levaquin 250 mg tablet RxNorm: 228799 Tablet(s) PO 2 pills day one and 1 pill day 2-7 04/06/2016 07/21/2016 Inactive warfarin 5 mg tablet RxNorm: 817524 Tablet(s) 1/2 TABLETS BY MOUTH ON AND WEDNESDAY. TAKE ONLY 1 TABLET BY MOUTH ALL OTHER DAYS OF THE WEEK 03/18/2016 07/07/2016 In active triamcinolone aceton sreekanth 0.025 % topical cream RxNorm: 9428539 1 Application TOP BI D 03/10/2016 08/16/2017 In active potassium chloride E R 20 mEq tablet,extended release RxNorm: 216834 1 Tablet(s) PO daily 03/04/2016 06/01/2016 Inactive Levaquin 250 mg tablet RxNorm: 614564 Tablet(s) PO 2 pills day one and 1 pill day 2-7 03/04/2016 04/05/2016 Inactive Levaquin 250 mg tablet RxNorm: 475434 Tablet(s) PO 2 pills day one and 1 pill day 2-7 03/03/2016 03/03/2016 Inactive potassium chloride E R 20 mEq tablet,extended release RxNorm: 018848 1 Tablet(s) PO daily 03/03/2016 03/03/2016 Inactive Cipro 500 mg tablet RxNorm: 406572 1 Tablet(s) PO BID 02/20/2016 07/21/2016 Inactive Cipro 500 mg tablet RxNorm: 261658 1 Tablet(s) PO BID 02/20/2016 02/19/2016 Inactive furosemide 40 mg tablet RxNorm: 785820 TAKE ONE TABLET BY MOUTH DAILY 01/27/2016 01/26/2016 In active warfarin 5 mg tablet RxNorm: 491608 TAKE 1 AND 1/2 TABLETS BY MOUTH ON AND WEDNESDAY. TAKE ONLY 1 TABLET BY MOUTH ALL OTHER DAYS OF THE WEEK 01/27/2016 01/26/2016 In active furosemide 40 mg tablet RxNorm: 559576 TAKE ONE TABLET BY MOUTH DAILY 01/27/2016 06/04/2016 In active warfarin 5 mg tablet RxNorm: 645228 TAKE 1 AND 1/2 TABLETS BY MOUTH ON AND WEDNESDAY. TAKE ONLY 1 TABLET BY MOUTH ALL OTHER DAYS OF THE WEEK 01/27/2016 03/17/2016 In active potassium chloride E R 20 mEq tablet,extended release RxNorm: 533496 1 Tablet(s) PO daily 11/20/2015 03/02/2016 Inactive furosemide 40 mg tablet RxNorm: 020967 TAKE ONE TABLET BY MOUTH DAILY 11/12/2015 01/26/2016 In active Zovirax 5 % topical cream RxNorm: 633488 TOP QID 0 09/24/2015 09/23/2015 Inactive Zovirax 5 % topical cream RxNorm: 508766 TOP QID 0 09/24/2015 11/19/2015 Inactive nystatin 100,000 uni t/gram topical cream RxNorm: 964753 1 Application TOP TID 09/17/2015 10/12/2016 In active warfarin 5 mg tablet RxNorm: 878903 TAKE 1 AND 1/2 TABLETS BY MOUTH ON AND WEDNESDAY. TAKE ONLY 1 TABLET BY MOUTH ALL OTHER DAYS OF THE WEEK 08/19/2015 01/05/2016 In active loratadine 10 mg tablet RxNorm: 005943 1 Tablet(s) PO daily 07/30/2015 07/23/2016 Inactive loratadine 10 mg tablet RxNorm: 078972 1 Tablet(s) PO daily 07/30/2015 07/29/2015 Inactive furosemide 40 mg tablet RxNorm: 231278 TAKE ONE TABLET BY MOUTH DAILY 06/24/2015 11/11/2015 In active levothyroxine 125 mc g tablet RxNorm: 995575 1 Tablet(s) PO daily 05/31/2015 05/24/2016 Inactive furosemide 40 mg tablet RxNorm: 329512 1 Tablet(s) PO daily 04/05/2015 06/23/2015 Inactive warfarin 5 mg tablet RxNorm: 004095 TAKE 1 AND 1/2 TABLETS BY MOUTH ON AND WEDNESDAY. TAKE ONLY 1 TABLET BY MOUTH ALL OTHER DAYS OF THE WEEK 02/12/2015 07/29/2015 In active Flonase Allergy Reli ef 50 mcg/actuation nasal spray,suspension RxNorm: 2 [place] NASAL daily 02/05/2015 03/06/2015 Inactive Kenalog 40 mg/mL zohra pension for injection RxNorm: 9470660 Milliliter(s) Inj 02/05/2015 02/05/2015 In active warfarin 5 mg tablet RxNorm: 973136 Take 7.5mg (1 1/2 tablets) Wednesday and and 1 Tablet(s) PO (5mg) all other days 01/11/2015 02/09/2015 Inactive levothyroxine 125 mc g tablet RxNorm: 596023 1 Tablet(s) PO every other day 01/01/2015 05/30/2015 In active alternate with 150 levothyroxine 150 mc g tablet RxNorm: 502548 1 Tablet(s) PO every other day 01/01/2015 05/30/2015 In active alternate with 125 loratadine 10 mg tablet RxNorm: 604985 Tablet(s) PO as needed No Start Date Active Fish Oil 1,000 mg ca psule RxNorm: 1 Capsule(s) PO TID No Start Date Active magnesium 250 mg tablet RxNorm: 1 Tablet(s) PO daily No Start Date Active Vitamin D3 2,000 uni t tablet RxNorm: 768547 2 Tablet(s) PO daily No Start Date Active Fosamax 35 mg tablet RxNorm: 357283 1 Tablet(s) PO QW No Start Date Active levothyroxine 125 mc g tablet RxNorm: 773378 1 Tablet(s) PO daily No Start Date 12/31/2014 Inactive levothyroxine 150 mc g tablet RxNorm: 294574 1 Tablet(s) PO daily No Start Date 12/31/2014 Inactive diltiazem 60 mg tablet RxNorm: 536730 1 Tablet(s) PO QID No Start Date 03/23/2018 Inactive meclizine 25 mg tablet RxNorm: 304956 1 Tablet(s) PO TID as needed Dizziness No Start Date 07/18/2018 Inactive furosemide 40 mg tablet RxNorm: 128326 1 Tablet(s) PO daily No Start Date 04/04/2015 Inactive potassium chloride RxNorm: miscellaneous No Start Date 11/19/2015 Inactive Vitamin D2 oral RxNorm: 4018 oral No Start Date 05/31/2015 Inactive warfarin 5 mg tablet RxNorm: 097866 1 Tablet(s) PO daily No Start Date 01/10/2015 Inactive Coumadin 4 mg tablet RxNorm: 074565 1 Tablet(s) PO Wed/ No Start Date 07/28/2017 Inactive Medication Administered Medication Codes Instruc tions Start Date Status ceftriaxone 500 mg solution for injection RxNorm: 9248634 10/27/2018 No longer A ctive ceftriaxone 500 mg solution for injection RxNorm: 2642236 07/22/2016 No longer A ctive Kenalog 40 mg/mL suspension for injection RxNorm: 2913892 Milliliter 07/22/2016 No longer Active Kenalog 40 mg/mL suspension for injection RxNorm: 6572808 Milliliter 02/05/2015 No longer Active Immunizations Vaccine [...] skin changes ICD-10: R23.8 ICD-9: 782.9 09/27/2018 [facility] (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 ICD-10: Z79.01 ICD-9: V58.61 09/27/2018 Chronic atrial fibrillation ICD-10: I48.2 ICD-9: [...] 244.9 11/20/2014 ACTINIC KERATOSIS ICD-9: 702.0 11/20/2014 [facility] current us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 therapy ICD-9: V58.61 10/19/2014 Reason For Visit Reason For Visit Effective Dates Notes urinary urgency 10/27/2018 hypertension 09/27/2018 hypertension 08/16/2018 [...] Code Item Item Code Result Date Pt [id number] PT 18.0 seconds 11/14/2018 Pt Rdz2369 INR 1.5 11/14/2018 Pt Rcm0272 Low Intensity - 1.5-2.0 11/14/2018 Pt Czh0608 Mod intensity - 2.0-3.0 11/14/2018 Pt Vac4435 Hi intensity - 3.0-4.0 11/14/2018 Pt Gdq6554 PT 17.3 seconds 11/03/2018 Pt Rje1329 INR 1.5 11/03/2018 Pt Rkc8729 Low Intensity - 1.5-2.0 11/03/2018 Pt Hql4990 Mod intensity - 2.0-3.0 11/03/2018 Pt Wbh8223 Hi intensity - 3.0-4.0 11/03/2018 Urine Culture Ucult Comp lete >100,000 col/ml aerobic grow th sent to ref lab 10/28/2018 Pt Rzl0335 PT 24.4 seconds 10/24/2018 Pt Uer0813 INR 2.2 10/24/2018 Pt Cok6587 Low Intensity - 1.5-2.0 10/24/2018 Pt Kvy7778 Mod intensity - 2.0-3.0 10/24/2018 Pt Mdg0528 Hi intensity - 3.0-4.0 10/24/2018 Lipid Ord30 CHOL 143 mg/dL 10/24/2018 Lipid Ord30 HDL 52.0 mg/dl 10/24/2018 Lipid Ord30 TRIG 78 mg/dL 10/24/2018 Lipid Ord30 LDL 75 mg/dL 10/24/2018 Lipid Ord30 C/HDL 2.8 Ratio 10/24/2018 Comp Metabolic Clz556 NA 142 mEq/L 10/24/2018 Comp Metabolic Rbn304 K 4.6 mEq/L 10/24/2018 Comp Metabolic Fun674 CL 107 mEq/L 10/24/2018 Comp Metabolic Huq644 CO2 27.0 mEq/L 10/24/2018 Comp Metabolic Lfz239 AN ION GAP 13 10/24/2018 Comp Metabolic Ibs114 GL UCOSE 82 mg/dL 10/24/2018 Comp Metabolic Ieu884 Cr eat 1.1 mg/dL 10/24/2018 Comp Metabolic Yhd469 eG FR 54 ml/min/1.73m2 10/24 Comp Metabolic Cdr453 BUN 23 mg/dL 10/24/2018 Comp Metabolic Gga710 B/ C Ratio 21.9 Ratio 10/24/2018 Comp Metabolic Clb084 CA LCIUM 9.0 mg/dL 10/24/2018 Comp Metabolic Ugw915 AL K PHOS 64 U/L 10/24/2018 Comp Metabolic Nkt360 T(SGOT) 18 U/L 10/24/2018 Comp Metabolic Emk701 AL T(SGPT) 14 U/L 10/24/2018 Comp Metabolic Zlx499 BI LI T 0.5 mg/dL 10/24/2018 Comp Metabolic Dku838 AL BUMIN 3.0 g/dL 10/24/2018 Comp Metabolic Ybu152 TP RO 5.2 g/dL 10/24/2018 Comp Metabolic Siw586 GL OB 2.2 g/dL 10/24/2018 Comp Metabolic Wyx884 A/ G Ratio 1.4 Ratio 10/24/2018 Comp Metabolic Jsx472 Os mo 286 mOsmo 10/24/2018 Pt Yhv4341 PT 23.8 seconds 09/29/2018 Pt Myy9145 INR 2.2 09/29/2018 Pt Xwx2902 Low Intensity - 1.5-2.0 09/29/2018 Pt Ssv7019 Mod intensity - 2.0-3.0 09/29/2018 Pt Pxj2231 Hi intensity - 3.0-4.0 09/29/2018 Pt Wgm3577 PT 19.6 seconds 09/19/2018 Pt Phj7866 INR 1.7 09/19/2018 Pt Adj4936 Low Intensity - 1.5-2.0 09/19/2018 Pt Zsj6762 Mod intensity - 2.0-3.0 09/19/2018 Pt Zdd3471 Hi intensity - 3.0-4.0 09/19/2018 Pt Zpc1864 PT 16.8 seconds 09/12/2018 Pt Csn3360 INR 1.4 09/12/2018 Pt Voo8083 Low Intensity - 1.5-2.0 09/12/2018 Pt Qvz4778 Mod intensity - 2.0-3.0 09/12/2018 Pt Rwp8853 Hi intensity - 3.0-4.0 09/12/2018 Pt Ejf6934 PT 13.1 seconds 09/07/2018 Pt Wkj1111 INR 1.0 09/07/2018 Pt Wcs9428 Low Intensity - 1.5-2.0 09/07/2018 Pt Mzs3722 Mod intensity - 2.0-3.0 09/07/2018 Pt Wni6047 Hi intensity - 3.0-4.0 09/07/2018 Pt Uln7040 PT 24.1 seconds 08/23/2018 Pt Wsf3185 INR 2.2 08/23/2018 Pt Fmb4560 Low Intensity - 1.5-2.0 08/23/2018 Pt Cmk6165 Mod intensity - 2.0-3.0 08/23/2018 Pt Auk6010 Hi intensity - 3.0-4.0 08/23/2018 Pt Blw8381 PT 30.9 seconds 08/16/2018 Pt Mwg2098 INR 3.0 08/16/2018 Pt Zmj9836 Low Intensity - 1.5-2.0 08/16/2018 Pt Zrp5047 Mod intensity - 2.0-3.0 08/16/2018 Pt Tio1881 Hi intensity - 3.0-4.0 08/16/2018 Pt Dxn6958 PT 29.5 seconds 08/01/2018 Pt Epq2123 INR 2.8 08/01/2018 Pt Guf1820 Low Intensity - 1.5-2.0 08/01/2018 Pt Xju9129 Mod intensity - 2.0-3.0 08/01/2018 Pt Vdm0062 Hi intensity - 3.0-4.0 08/01/2018 Pt Lgy1841 PT 24.2 seconds 07/25/2018 Pt Bex8482 INR 2.2 07/25/2018 Pt Vug9542 Low Intensity - 1.5-2.0 07/25/2018 Pt Nys5295 Mod intensity - 2.0-3.0 07/25/2018 Pt Gmc2950 Hi intensity - 3.0-4.0 07/25/2018 Pt Fge9645 PT 38.6 seconds 07/19/2018 Pt Zrj3510 INR 4.0 07/19/2018 Pt Hgf5383 Low Intensity - 1.5-2.0 07/19/2018 Pt Waf5570 Mod intensity - 2.0-3.0 07/19/2018 Pt Hjo0716 Hi intensity - 3.0-4.0 07/19/2018 Pt Alc3055 PT 25.7 seconds 07/11/2018 Pt Lat6567 INR 2.4 07/11/2018 Pt Hjg3989 Low Intensity - 1.5-2.0 07/11/2018 Pt Ngl6653 Mod intensity - 2.0-3.0 07/11/2018 Pt Pbp3576 Hi intensity - 3.0-4.0 07/11/2018 Pt Vnx8866 PT 18.5 seconds 07/08/2018 Pt Apz6272 INR 1.6 07/08/2018 Pt Wpj4423 Low Intensity - 1.5-2.0 07/08/2018 Pt Hwu0283 Mod intensity - 2.0-3.0 07/08/2018 Pt Nec4037 Hi intensity - 3.0-4.0 07/08/2018 Pt Wrn2818 PT 27.3 seconds 06/29/2018 Pt Dii5171 INR 2.6 06/29/2018 Pt Gww3749 Low Intensity - 1.5-2.0 06/29/2018 Pt Ffu7509 Mod intensity - 2.0-3.0 06/29/2018 Pt Mrp6252 Hi intensity - 3.0-4.0 06/29/2018 Pt Gdi1035 PT 24.0 seconds 05/26/2018 Pt Gtc4591 INR 2.2 05/26/2018 Pt Ikr2738 Low Intensity - 1.5-2.0 05/26/2018 Pt Wkr5767 Mod intensity - 2.0-3.0 05/26/2018 Pt Bzj4395 Hi intensity - 3.0-4.0 05/26/2018 Tsh Ord6 [...] 29.6 pg 03/25/2018 Cbc With Differential Ord2 [place]% 9.5 % 03/25/2018 Cbc With Differential Ord2 [...] 2.19 K/ul 03/25/2018 Cbc With Differential Ord2 [place] ABS# 0.8 K/ul 03/25/2018 Cbc With Differential Ord2 Eos ABS# 0.3 K/ul 03/25/2018 Cbc With Differential Ord2 Baso ABS# 0.0 K/ul 03/25/2018 Lipid Ord30 CHOL 156 mg/dL 03/25/2018 Lipid Ord30 HDL 52.0 mg/dl 03/25/2018 Lipid Ord30 TRIG 98 mg/dL 03/25/2018 Lipid Ord30 LDL 84 mg/dL 03/25/2018 Lipid Ord30 C/HDL 3.0 Ratio 03/25/2018 Free T4 Wdm493 FREE T4 1.73 ng/dL 03/25/2018 Comp Metabolic Pgi257 NA 143 mEq/L 03/25/2018 Comp Metabolic Yjo426 K 4.6 mEq/L 03/25/2018 Comp Metabolic Xgm448 CL 108 mEq/L 03/25/2018 Comp Metabolic Ttl785 CO2 26.0 mEq/L 03/25/2018 Comp Metabolic Rci271 AN ION GAP 14 03/25/2018 Comp Metabolic Mif716 GL UCOSE 87 mg/dL 03/25/2018 Comp Metabolic Qes907 Cr eat 1.2 mg/dL 03/25/2018 Comp Metabolic Att372 eG FR 48 ml/min/1.73m2 03/25 Comp Metabolic Xjb172 BUN 18 mg/dL 03/25/2018 Comp Metabolic Xsy795 B/ C Ratio 15.5 Ratio 03/25/2018 Comp Metabolic Mun422 CA LCIUM 9.1 mg/dL 03/25/2018 Comp Metabolic Xdx164 AL K PHOS 58 U/L 03/25/2018 Comp Metabolic Boq688 T(SGOT) 21 U/L 03/25/2018 Comp Metabolic Vyu341 AL T(SGPT) 13 U/L 03/25/2018 Comp Metabolic Tea455 BI LI T 0.7 mg/dL 03/25/2018 Comp Metabolic Ofu791 AL BUMIN 3.2 g/dL 03/25/2018 Comp Metabolic Hkf437 TP RO 5.5 g/dL 03/25/2018 Comp Metabolic Odh831 GL OB 2.3 g/dL 03/25/2018 Comp Metabolic Xjn037 A/ G Ratio 1.4 Ratio 03/25/2018 Comp Metabolic Fki340 Os mo 286 mOsmo 03/25/2018 Pt Kdw2153 PT 29.0 seconds 03/22/2018 Pt Yrf1419 INR 2.7 03/22/2018 Pt Hhk2305 Low Intensity - 1.5-2.0 03/22/2018 Pt Vja9857 Mod intensity - 2.0-3.0 03/22/2018 Pt Pam2818 Hi intensity - 3.0-4.0 03/22/2018 Pt Srz5560 PT 27.1 seconds 02/25/2018 Pt Nza9151 INR 2.5 02/25/2018 Pt Ltn0353 Low Intensity - 1.5-2.0 02/25/2018 Pt Bkq6130 Mod intensity - 2.0-3.0 02/25/2018 Pt Zds2388 Hi intensity - 3.0-4.0 02/25/2018 Pt Ymq0315 PT 26.1 seconds 01/26/2018 Pt Msh1943 INR 2.4 01/26/2018 Pt Jnu4617 Low Intensity - 1.5-2.0 01/26/2018 Pt Get0766 Mod intensity - 2.0-3.0 01/26/2018 Pt Pwi5101 Hi intensity - 3.0-4.0 01/26/2018 Pt Evy0442 PT 22.8 seconds 12/24/2017 Pt Puv7977 INR 2.0 12/24/2017 Pt Aig8393 Low Intensity - 1.5-2.0 12/24/2017 Pt Zgr0370 Mod intensity - 2.0-3.0 12/24/2017 Pt Nzd8167 Hi intensity - 3.0-4.0 12/24/2017 Pt Gir7910 PT 29.4 seconds 11/18/2017 Pt Kzo2345 INR 2.8 11/18/2017 Pt Hsl7736 Low Intensity - 1.5-2.0 11/18/2017 Pt Smv8634 Mod intensity - 2.0-3.0 11/18/2017 Pt Hyb2513 Hi intensity - 3.0-4.0 11/18/2017 Pt Hcs5028 PT 26.6 seconds 09/13/2017 Pt Ixs7534 INR 2.4 09/13/2017 Pt Qdc3592 Low Intensity - 1.5-2.0 09/13/2017 Pt Uim1359 Mod intensity - 2.0-3.0 09/13/2017 Pt Fkn8759 Hi intensity - 3.0-4.0 09/13/2017 Pt Qgl1236 PT 28.2 seconds 08/10/2017 Pt Lny7754 INR 2.6 08/10/2017 Pt Jsv1580 Low Intensity - 1.5-2.0 08/10/2017 Pt Laj1019 Mod intensity - 2.0-3.0 08/10/2017 Pt Gmw2963 Hi intensity - 3.0-4.0 08/10/2017 Pt Vkn5331 PT 33.9 seconds 07/27/2017 Pt Rlh0191 INR 3.3 07/27/2017 Pt Vzj8562 Low Intensity - 1.5-2.0 07/27/2017 Pt Pvv5656 Mod intensity - 2.0-3.0 07/27/2017 Pt Zjz4833 Hi intensity - 3.0-4.0 07/27/2017 Pt Ejr7271 PT 29.1 seconds 06/29/2017 Pt Kjs4062 INR 2.7 06/29/2017 Pt Vvq8731 Low Intensity - 1.5-2.0 06/29/2017 Pt Qxb5695 Mod intensity - 2.0-3.0 06/29/2017 Pt Eir0699 Hi intensity - 3.0-4.0 06/29/2017 Pt Sef7728 PT 30.3 seconds 06/11/2017 Pt Uqe0376 INR 2.9 06/11/2017 Pt Fdn2437 Low Intensity - 1.5-2.0 06/11/2017 Pt Esp9739 Mod intensity - 2.0-3.0 06/11/2017 Pt Fxn0400 Hi intensity - 3.0-4.0 06/11/2017 Pt Bmr6584 PT 39.1 seconds 06/07/2017 Pt Lxl1419 INR 3.9 06/07/2017 Pt Xzp9844 Low Intensity - 1.5-2.0 06/07/2017 Pt Mkh2467 Mod intensity - 2.0-3.0 06/07/2017 Pt Xxl3448 Hi intensity - 3.0-4.0 06/07/2017 Pt Zol2476 PT 34.2 seconds 05/26/2017 Pt Hqz1547 INR 3.3 05/26/2017 Pt Poa8921 Low Intensity - 1.5-2.0 05/26/2017 Pt Szu6751 Mod intensity - 2.0-3.0 05/26/2017 Pt Kug4182 Hi intensity - 3.0-4.0 05/26/2017 Comp Metabolic Pvu218 NA 138 mEq/L 04/23/2017 Comp Metabolic Biw256 K 4.2 mEq/L 04/23/2017 Comp Metabolic Gwp472 CL 101 mEq/L 04/23/2017 Comp Metabolic Rol144 CO2 28.0 mEq/L 04/23/2017 Comp Metabolic Mxr920 AN ION GAP 13 04/23/2017 Comp Metabolic Pcn932 GL UCOSE 89 mg/dL 04/23/2017 Comp Metabolic Mmd917 Cr eat 1.1 mg/dL 04/23/2017 Comp Metabolic Dsm564 eG FR 51 ml/min/1.73m2 04/23 Comp Metabolic Zec904 BUN 26 mg/dL 04/23/2017 Comp Metabolic Rnj030 B/ C Ratio 23.9 Ratio 04/23/2017 Comp Metabolic Xho229 CA LCIUM 9.4 mg/dL 04/23/2017 Comp Metabolic Jte356 AL K PHOS 95 U/L 04/23/2017 Comp Metabolic Dco945 T(SGOT) 18 U/L 04/23/2017 Comp Metabolic Avr220 AL T(SGPT) 17 U/L 04/23/2017 Comp Metabolic Wjg877 BI LI T 0.7 mg/dL 04/23/2017 Comp Metabolic Scq241 AL BUMIN 3.2 g/dL 04/23/2017 Comp Metabolic Bzq848 TP RO 5.6 g/dL 04/23/2017 Comp Metabolic Jcb907 GL OB 2.4 g/dL 04/23/2017 Comp Metabolic Mdv082 A/ G Ratio 1.3 Ratio 04/23/2017 Comp Metabolic Qgs385 Os mo 280 mOsmo 04/23/2017 Pt Rsn6792 PT 28.6 seconds 04/23/2017 Pt Abj8751 INR 2.7 04/23/2017 Pt Tki2945 Low Intensity - 1.5-2.0 04/23/2017 Pt Yru1316 Mod intensity - 2.0-3.0 04/23/2017 Pt Ssn6063 Hi intensity - 3.0-4.0 04/23/2017 Pt Nil5793 PT 24.4 seconds 03/16/2017 Pt Yut5708 INR 2.2 03/16/2017 Pt Caf6323 Low Intensity - 1.5-2.0 03/16/2017 Pt Btx0200 Mod intensity - 2.0-3.0 03/16/2017 Pt Idk8143 Hi intensity - 3.0-4.0 03/16/2017 Pt Ajf1975 PT 28.2 seconds 02/24/2017 Pt Hzg8581 INR 2.6 02/24/2017 Pt Vaa8731 Low Intensity - 1.5-2.0 02/24/2017 Pt Zin4851 Mod intensity - 2.0-3.0 02/24/2017 Pt Wuw0490 Hi intensity - 3.0-4.0 02/24/2017 Pt Gme5744 PT 26.8 seconds 02/08/2017 Pt Fjn3772 INR 2.5 02/08/2017 Pt Njg0555 Low Intensity - 1.5-2.0 02/08/2017 Pt Cpk7958 Mod intensity - 2.0-3.0 02/08/2017 Pt Fni0908 Hi intensity - 3.0-4.0 02/08/2017 Lipid Ord30 CHOL 150 mg/dL 01/25/2017 Lipid Ord30 HDL 55.0 mg/dl 01/25/2017 Lipid Ord30 TRIG 66 mg/dL 01/25/2017 Lipid Ord30 LDL 82 mg/dL 01/25/2017 Lipid Ord30 C/HDL 2.7 Ratio 01/25/2017 Pt Fxp3084 PT 29.9 seconds 01/25/2017 Pt Haw5586 INR 2.8 01/25/2017 Pt Clh2789 Low Intensity - 1.5-2.0 01/25/2017 Pt Hwa7527 Mod intensity - 2.0-3.0 01/25/2017 Pt Pnl7023 Hi intensity - 3.0-4.0 01/25/2017 Comp Metabolic Igp439 NA 143 mEq/L 01/25/2017 Comp Metabolic Amb738 K 3.9 mEq/L 01/25/2017 Comp Metabolic Hkt103 CL 108 mEq/L 01/25/2017 Comp Metabolic Elf884 CO2 23.0 mEq/L 01/25/2017 Comp Metabolic Ofr596 AN ION GAP 16 01/25/2017 Comp Metabolic Fxt805 GL UCOSE 80 mg/dL 01/25/2017 Comp Metabolic Xzz257 Cr eat 1.0 mg/dL 01/25/2017 Comp Metabolic Qcp399 eG FR 57 ml/min/1.73m2 01/25 Comp Metabolic Mna728 BUN 25 mg/dL 01/25/2017 Comp Metabolic Pzv364 B/ C Ratio 25.0 Ratio 01/25/2017 Comp Metabolic Vhc092 CA LCIUM 8.5 mg/dL 01/25/2017 Comp Metabolic Ydg537 AL K PHOS 81 U/L 01/25/2017 Comp Metabolic Eqx042 T(SGOT) 19 U/L 01/25/2017 Comp Metabolic Hyv819 AL T(SGPT) 23 U/L 01/25/2017 Comp Metabolic Tgu564 BI LI T 0.5 mg/dL 01/25/2017 Comp Metabolic Yya484 AL BUMIN 2.9 g/dL 01/25/2017 Comp Metabolic Hsf771 TP RO 5.1 g/dL 01/25/2017 Comp Metabolic Rgk709 GL OB 2.2 g/dL 01/25/2017 Comp Metabolic Ubp637 A/ G Ratio 1.3 Ratio 01/25/2017 Comp Metabolic Srf109 Os mo 288 mOsmo 01/25/2017 Cbc With [...] 30.7 pg 01/25/2017 Cbc With Differential Ord2 [place]% 8.2 % 01/25/2017 Cbc With Differential Ord2 [...] 3.10 K/ul 01/25/2017 Cbc With Differential Ord2 [place] ABS# 0.8 K/ul 01/25/2017 Cbc With Differential Ord2 Eos ABS# 0.4 K/ul 01/25/2017 Cbc With Differential Ord2 Baso ABS# 0.1 K/ul 01/25/2017 Free T4 Xsd342 FREE T4 2.09 ng/dL 01/25/2017 Tsh Ord6 hTSH II 0.46 uIU/mL 01/25/2017 Pt Ngg5556 PT 26.1 seconds 11/26/2016 Pt Xdu8458 INR 2.6 11/26/2016 Pt Rwt8994 Low Intensity - 1.5-2.0 11/26/2016 Pt Qhc6075 Mod intensity - 2.0-3.0 11/26/2016 Pt Jkr4419 Hi intensity - 3.0-4.0 11/26/2016 Pt Sxf9220 PT 26.2 seconds 10/29/2016 Pt Zvn7776 INR 2.6 10/29/2016 Pt Dek8071 Low Intensity - 1.5-2.0 10/29/2016 Pt Hxb2637 Mod intensity - 2.0-3.0 10/29/2016 Pt Kst9634 Hi intensity - 3.0-4.0 10/29/2016 Pt Ajx9594 PT 20.8 seconds 10/13/2016 Pt Iql0325 INR 1.9 10/13/2016 Pt Yis5165 Low Intensity - 1.5-2.0 10/13/2016 Pt Ybo5897 Mod intensity - 2.0-3.0 10/13/2016 Pt Dxo7869 Hi intensity - 3.0-4.0 10/13/2016 Pt Nlp7813 PT 26.5 seconds 10/01/2016 Pt Ebb5163 INR 2.6 10/01/2016 Pt Mjm4664 Low Intensity - 1.5-2.0 10/01/2016 Pt Fzg8103 Mod intensity - 2.0-3.0 10/01/2016 Pt Igk7845 Hi intensity - 3.0-4.0 10/01/2016 Pt Ftj7359 PT 24.6 seconds 09/14/2016 Pt Kjw5392 INR 2.4 09/14/2016 Pt Liz0655 Low Intensity - 1.5-2.0 09/14/2016 Pt Fol7146 Mod intensity - 2.0-3.0 09/14/2016 Pt Vye5975 Hi intensity - 3.0-4.0 09/14/2016 Pt Nvs6901 PT 18.0 seconds 09/07/2016 Pt Kjb7638 INR 1.6 09/07/2016 Pt Dla8255 Low Intensity - 1.5-2.0 09/07/2016 Pt Iva7489 Mod intensity - 2.0-3.0 09/07/2016 Pt Ubq8674 Hi intensity - 3.0-4.0 09/07/2016 Pt Lbe9906 PT 23.7 seconds 08/12/2016 Pt Ujp9890 INR 2.2 08/12/2016 Pt Uqp6472 Low Intensity - 1.5-2.0 08/12/2016 Pt Gqg2945 Mod intensity - 2.0-3.0 08/12/2016 Pt Jza3260 Hi intensity - 3.0-4.0 08/12/2016 Pt Wqn2334 PT 21.6 seconds 07/27/2016 Pt Oaa0033 INR 2.0 07/27/2016 Pt Vma3097 Low Intensity - 1.5-2.0 07/27/2016 Pt Jnn4182 Mod intensity - 2.0-3.0 07/27/2016 Pt Ysy8847 Hi intensity - 3.0-4.0 07/27/2016 Pt Dov9089 PT 26.0 seconds 06/15/2016 Pt Pwy6503 INR 2.5 06/15/2016 Pt Dhk4885 Low Intensity - 1.5-2.0 06/15/2016 Pt Fcm1785 Mod intensity - 2.0-3.0 06/15/2016 Pt Fcx7698 Hi intensity - 3.0-4.0 06/15/2016 Pt Kfp7603 PT 18.8 seconds 06/01/2016 Pt Fih9366 INR 1.7 06/01/2016 Pt Bhd0685 Low Intensity - 1.5-2.0 06/01/2016 Pt Dee8401 Mod intensity - 2.0-3.0 06/01/2016 Pt Ocr7122 Hi intensity - 3.0-4.0 06/01/2016 Pt Pvf8716 PT 20.8 seconds 05/12/2016 Pt Pcn0777 INR 1.9 05/12/2016 Pt Brp2573 Low Intensity - 1.5-2.0 05/12/2016 Pt Vey2416 Mod intensity - 2.0-3.0 05/12/2016 Pt Xws1068 Hi intensity - 3.0-4.0 05/12/2016 Pt Vhr8692 PT 24.5 seconds 04/10/2016 Pt Qxb7412 INR 2.4 04/10/2016 Pt Jud7423 Low Intensity - 1.5-2.0 04/10/2016 Pt Qpv1104 Mod intensity - 2.0-3.0 04/10/2016 Pt Kgn4801 Hi intensity - 3.0-4.0 04/10/2016 Pt Qlk1197 PT 26.4 seconds 03/10/2016 Pt Hoi8367 INR 2.6 03/10/2016 Pt Xkx4784 Low Intensity - 1.5-2.0 03/10/2016 Pt Qfd3827 Mod intensity - 2.0-3.0 03/10/2016 Pt Thq4465 Hi intensity - 3.0-4.0 03/10/2016 Pt Woe6660 PT 24.9 seconds 03/06/2016 Pt Tjs7842 INR 2.4 03/06/2016 Pt Mcc1449 Low Intensity - 1.5-2.0 03/06/2016 Pt Okh4333 Mod intensity - 2.0-3.0 03/06/2016 Pt Dqe0317 Hi intensity - 3.0-4.0 03/06/2016 Pt Hbp8607 PT 21.9 seconds 02/25/2016 Pt Cdy1339 INR 2.0 02/25/2016 Pt Efb9598 Low Intensity - 1.5-2.0 02/25/2016 Pt Gkg2943 Mod intensity - 2.0-3.0 02/25/2016 Pt Msh5409 Hi intensity - 3.0-4.0 02/25/2016 Pt Wxv5173 PT 21.8 seconds 02/21/2016 Pt Amv8924 INR 2.0 02/21/2016 Pt Bpx5546 Low Intensity - 1.5-2.0 02/21/2016 Pt Ttw9398 Mod intensity - 2.0-3.0 02/21/2016 Pt Pgw8680 Hi intensity - 3.0-4.0 02/21/2016 Culture Urine [id number] URI NE CULTURE SEE NOTES 02/20/2016 Culture Urine [id number] Con tinued Results 02/20/2016 Urine Culture Ucult Comp lete Growth of aerobe sent to ref lab 02/18/2016 Urinalysis Ord28 U-Color Yellow 02/14/2016 Urinalysis Ord28 U-Kace[place] ty Clear 02/14/2016 Urinalysis Ord28 U-Gluc Negative [...] 29.2 pg 02/14/2016 Cbc With Differential Ord2 [place]% 9.3 % 02/14/2016 Cbc With Differential Ord2 [...] 2.55 K/ul 02/14/2016 Cbc With Differential Ord2 [place] ABS# 0.8 K/ul 02/14/2016 Cbc With Differential Ord2 Eos ABS# 0.4 K/ul 02/14/2016 Cbc With Differential Ord2 Baso ABS# 0.1 K/ul 02/14/2016 Tsh Ord6 hTSH II 0.80 uIU/mL 02/14/2016 Pt Vbi5973 PT 27.1 seconds 02/14/2016 Pt Aoy3287 INR 2.7 02/14/2016 Pt Sqb2045 Low Intensity - 1.5-2.0 02/14/2016 Pt Tev9854 Mod intensity - 2.0-3.0 02/14/2016 Pt Xcj8357 Hi intensity - 3.0-4.0 02/14/2016 Free T4 Znh634 FREE T4 1.87 ng/dL 02/14/2016 Comp Metabolic Iyx046 NA 139 mEq/L 02/14/2016 Comp Metabolic Htf091 K 3.8 mEq/L 02/14/2016 Comp Metabolic Clb010 CL 103 mEq/L 02/14/2016 Comp Metabolic Yzz555 CO2 27.0 mEq/L 02/14/2016 Comp Metabolic Dox455 AN ION GAP 13 02/14/2016 Comp Metabolic Vlf626 GL UCOSE 91 mg/dL 02/14/2016 Comp Metabolic Gnp162 Cr eat 1.0 mg/dL 02/14/2016 Comp Metabolic Cdz380 eG FR 58 ml/min/1.73m2 02/13 Comp Metabolic Vfe242 BUN 16 mg/dL 02/14/2016 Comp Metabolic Vrz602 B/ C Ratio 16.2 Ratio 02/14/2016 Comp Metabolic Alm360 CA LCIUM 9.0 mg/dL 02/14/2016 Comp Metabolic Miq476 AL K PHOS 88 U/L 02/14/2016 Comp Metabolic Evl795 T(SGOT) 17 U/L 02/14/2016 Comp Metabolic Zhy777 AL T(SGPT) 12 U/L 02/14/2016 Comp Metabolic Xiy870 BI LI T 0.6 mg/dL 02/14/2016 Comp Metabolic Lll866 AL BUMIN 3.2 g/dL 02/14/2016 Comp Metabolic Gqb787 TP RO 5.8 g/dL 02/14/2016 Comp Metabolic Zaz576 GL OB 2.6 g/dL 02/14/2016 Comp Metabolic Bic397 A/ G Ratio 1.3 Ratio 02/14/2016 Comp Metabolic Srs732 Os mo 278 mOsmo 02/14/2016 Pt Hdy0522 PT 34.6 seconds 02/06/2016 Pt Lqi9484 INR 3.7 02/06/2016 Pt Uyb0179 Low Intensity - 1.5-2.0 02/06/2016 Pt Cdo0967 Mod intensity - 2.0-3.0 02/06/2016 Pt Qkc9134 Hi intensity - 3.0-4.0 02/06/2016 Pt Sco3842 PT 33.3 seconds 01/23/2016 Pt Rzo4756 INR 3.5 01/23/2016 Pt Ghk3919 Low Intensity - 1.5-2.0 01/23/2016 Pt Off2119 Mod intensity - 2.0-3.0 01/23/2016 Pt Cjj1316 Hi intensity - 3.0-4.0 01/23/2016 Pt Ddw7106 PT 30.5 seconds 12/31/2015 Pt Elw4537 INR 3.2 12/31/2015 Pt Qxm5598 Low Intensity - 1.5-2.0 12/31/2015 Pt Non7931 Mod intensity - 2.0-3.0 12/31/2015 Pt Tgb0825 Hi intensity - 3.0-4.0 12/31/2015 Pt Bvg6896 PT 35.6 seconds 12/25/2015 Pt Nep7923 INR 3.9 12/25/2015 Pt Jvk4690 Low Intensity - 1.5-2.0 12/25/2015 Pt God6838 Mod intensity - 2.0-3.0 12/25/2015 Pt Eat8595 Hi intensity - 3.0-4.0 12/25/2015 Pt Yiy1669 PT 30.8 seconds 11/21/2015 Pt Mas1308 INR 3.2 11/21/2015 Pt Dvs8676 Low Intensity - 1.5-2.0 11/21/2015 Pt Ent7053 Mod intensity - 2.0-3.0 11/21/2015 Pt Qgw0965 Hi intensity - 3.0-4.0 11/21/2015 Uric Acid [...] 30.0 pg 11/20/2015 Cbc With Differential Ord2 [place]% 8.1 % 11/20/2015 Cbc With Differential Ord2 [...] 2.51 K/ul 11/20/2015 Cbc With Differential Ord2 [place] ABS# 0.9 K/ul 11/20/2015 Cbc With Differential Ord2 Eos ABS# 0.3 K/ul 11/20/2015 Cbc With Differential Ord2 Baso ABS# 0.0 K/ul 11/20/2015 Comp Metabolic Fsg606 NA 137 mEq/L 10/22/2015 Comp Metabolic Nxk814 K 3.9 mEq/L 10/22/2015 Comp Metabolic Zlr224 CL 100 mEq/L 10/22/2015 Comp Metabolic Ayu886 CO2 31.0 mEq/L 10/22/2015 Comp Metabolic Kyz027 AN ION GAP 10 10/22/2015 Comp Metabolic Ftl335 GL UCOSE 94 mg/dL 10/22/2015 Comp Metabolic Wfb872 Cr eat 1.0 mg/dL 10/22/2015 Comp Metabolic Cle742 eG FR 55 ml/min/1.73m2 10/21 Comp Metabolic Ket463 BUN 19 mg/dL 10/22/2015 Comp Metabolic Djv244 B/ C Ratio 18.3 Ratio 10/22/2015 Comp Metabolic Log855 CA LCIUM 8.8 mg/dL 10/22/2015 Comp Metabolic Icn916 AL K PHOS 83 U/L 10/22/2015 Comp Metabolic Zez663 T(SGOT) 15 U/L 10/22/2015 Comp Metabolic Htg448 AL T(SGPT) 13 U/L 10/22/2015 Comp Metabolic Lyv931 BI LI T 0.9 mg/dL 10/22/2015 Comp Metabolic Raj814 AL BUMIN 2.8 g/dL 10/22/2015 Comp Metabolic Dxq055 TP RO 5.4 g/dL 10/22/2015 Comp Metabolic Mxc210 GL OB 2.6 g/dL 10/22/2015 Comp Metabolic Wle385 A/ G Ratio 1.1 Ratio 10/22/2015 Comp Metabolic Oqm994 Os mo 276 mOsmo 10/22/2015 Bili D Ord93 BILI D 0.1 mg/dL 10/22/2015 Bili D Ord93 BILI I 0.8 mg/dL 10/22/2015 Pt Esh3058 PT 22.8 seconds 10/22/2015 Pt Ehd8482 INR 2.1 10/22/2015 Pt Wdk8418 Low Intensity - 1.5-2.0 10/22/2015 Pt Onu8876 Mod intensity - 2.0-3.0 10/22/2015 Pt Wyf3433 Hi intensity - 3.0-4.0 10/22/2015 Pt Wrj7862 PT 28.0 seconds 09/16/2015 Pt Ved4265 INR 2.7 09/16/2015 Pt Bhh3555 Low Intensity - 1.5-2.0 09/16/2015 Pt Lgb0104 Mod intensity - 2.0-3.0 09/16/2015 Pt Rlr4946 Hi intensity - 3.0-4.0 09/16/2015 Tsh Ord6 hTSH II 1.40 uIU/mL 09/16/2015 Free T4 Fwx341 FREE T4 1.73 ng/dL 09/16/2015 Lipid Ord30 CHOL 169 mg/dL 09/16/2015 Lipid Ord30 HDL 66.0 mg/dl 09/16/2015 Lipid Ord30 TRIG 78 mg/dL 09/16/2015 Lipid Ord30 LDL 87 mg/dL 09/16/2015 Lipid Ord30 C/HDL 2.6 Ratio 09/16/2015 Pt Zew6430 PT 26.6 seconds 08/21/2015 Pt Luj9202 INR 2.6 08/21/2015 Pt Alz7380 Low Intensity - 1.5-2.0 08/21/2015 Pt Otk2353 Mod intensity - 2.0-3.0 08/21/2015 Pt Tgf7447 Hi intensity - 3.0-4.0 08/21/2015 Comp Metabolic Bkl296 NA 141 mEq/L 08/08/2015 Comp Metabolic Ovj439 K 3.3 mEq/L 08/08/2015 Comp Metabolic Hbk798 CL 102 mEq/L 08/08/2015 Comp Metabolic Tvh863 CO2 31.0 mEq/L 08/08/2015 Comp Metabolic Svf566 AN ION GAP 11 08/08/2015 Comp Metabolic Ygb154 GL UCOSE 83 mg/dL 08/08/2015 Comp Metabolic Sar643 Cr eat 1.0 mg/dL 08/08/2015 Comp Metabolic Ulw988 eG FR 55 ml/min/1.73m2 08/08 Comp Metabolic Avz670 BUN 19 mg/dL 08/08/2015 Comp Metabolic Vgw775 B/ C Ratio 18.3 Ratio 08/08/2015 Comp Metabolic Bwh100 CA LCIUM 8.9 mg/dL 08/08/2015 Comp Metabolic Aqo529 AL K PHOS 84 U/L 08/08/2015 Comp Metabolic Geq302 T(SGOT) 20 U/L 08/08/2015 Comp Metabolic Drr924 AL T(SGPT) 18 U/L 08/08/2015 Comp Metabolic Cev874 BI LI T 0.6 mg/dL 08/08/2015 Comp Metabolic Npi517 AL BUMIN 3.3 g/dL 08/08/2015 Comp Metabolic Tpj008 TP RO 5.9 g/dL 08/08/2015 Comp Metabolic Txr192 GL OB 2.6 g/dL 08/08/2015 Comp Metabolic Kjr930 A/ G Ratio 1.3 Ratio 08/08/2015 Comp Metabolic Ezc519 Os mo 283 mOsmo 08/08/2015 Cbc With [...] 30.0 pg 08/08/2015 Cbc With Differential Ord2 [place]% 8.2 % 08/08/2015 Cbc With Differential Ord2 [...] 2.90 K/ul 08/08/2015 Cbc With Differential Ord2 [place] ABS# 0.9 K/ul 08/08/2015 Cbc With Differential [...] Ord93 BILI I 0.5 mg/dL 08/08/2015 Pt Vks9886 PT 31.8 seconds 08/05/2015 Pt Fok2089 INR 3.2 08/05/2015 Pt Hka8304 Low Intensity - 1.5-2.0 08/05/2015 Pt Wpu7444 Mod intensity - 2.0-3.0 08/05/2015 Pt Tta7722 Hi intensity - 3.0-4.0 08/05/2015 Pt Ubt3408 PT 27.4 seconds 06/27/2015 Pt Uto9997 INR 2.6 06/27/2015 Pt Diq8489 Low Intensity - 1.5-2.0 06/27/2015 Pt Ygn5531 Mod intensity - 2.0-3.0 06/27/2015 Pt Lqy2900 Hi intensity - 3.0-4.0 06/27/2015 Tsh Ord6 [...] Ord2 RDW 15.1 % 05/31/2015 Free T4 Uqj660 FREE T4 1.89 ng/dL 05/31/2015 Comp Metabolic Jfl886 NA 140 mEq/L 05/31/2015 Comp Metabolic Cpj152 K 3.3 mEq/L 05/31/2015 Comp Metabolic Oob085 CL 99 mEq/L 05/31/2015 Comp Metabolic Elp576 CO2 30.0 mEq/L 05/31/2015 Comp Metabolic Agi431 AN ION GAP 14 05/31/2015 Comp Metabolic Yfu952 GL UCOSE 70 mg/dL 05/31/2015 Comp Metabolic Hrt194 Cr eat 1.0 mg/dL 05/31/2015 Comp Metabolic Ubm867 eG FR 55 ml/min/1.73m2 05/31 Comp Metabolic Upw150 BUN 23 mg/dL 05/31/2015 Comp Metabolic Uro308 B/ C Ratio 22.1 Ratio 05/31/2015 Comp Metabolic Zcj190 CA LCIUM 8.9 mg/dL 05/31/2015 Comp Metabolic Lwr874 AL K PHOS 86 U/L 05/31/2015 Comp Metabolic Ydu501 T(SGOT) 28 U/L 05/31/2015 Comp Metabolic Mxu178 AL T(SGPT) 30 U/L 05/31/2015 Comp Metabolic Ovi767 BI LI T 0.4 mg/dL 05/31/2015 Comp Metabolic Kmu469 AL BUMIN 3.3 g/dL 05/31/2015 Comp Metabolic Sne115 TP RO 6.0 g/dL 05/31/2015 Comp Metabolic Ley217 GL OB 2.7 g/dL 05/31/2015 Comp Metabolic Tyv096 A/ G Ratio 1.2 Ratio 05/31/2015 Comp Metabolic Wkr882 Os mo 282 mOsmo 05/31/2015 Pt Bcc2256 PT 23.3 seconds 04/15/2015 Pt Nxq9411 INR 2.2 04/15/2015 Pt Ofk5187 Low Intensity - 1.5-2.0 04/15/2015 Pt Bbq4906 Mod intensity - 2.0-3.0 04/15/2015 Pt Daf1478 Hi intensity - 3.0-4.0 04/15/2015 Pt Jxh9912 PT 19.5 seconds 04/04/2015 Pt Swq2308 INR 1.7 04/04/2015 Pt Iew0276 Low Intensity - 1.5-2.0 04/04/2015 Pt Vhj6098 Mod intensity - 2.0-3.0 04/04/2015 Pt Dlu3614 Hi intensity - 3.0-4.0 04/04/2015 Pt Odr7615 PT 39.8 seconds 04/01/2015 Pt Tpl1526 INR 4.3 04/01/2015 Pt Vag0916 Low Intensity - 1.5-2.0 04/01/2015 Pt Qnc2102 Mod intensity - 2.0-3.0 04/01/2015 Pt Jgr5583 Hi intensity - 3.0-4.0 04/01/2015 Metabolic Ord15 [...] Metabolic Ord15 CALCIUM 8.7 mg/dL 02/28/2015 Pt Ekq1702 PT 31.4 seconds 02/28/2015 Pt Sah9440 INR 3.2 02/28/2015 Pt Jfr7333 Low Intensity - 1.5-2.0 02/28/2015 Pt Oah5716 Mod intensity - 2.0-3.0 02/28/2015 Pt Vfn6500 Hi intensity - 3.0-4.0 02/28/2015 Pt Feq7919 PT 23.2 seconds 01/18/2015 Pt Uxs3825 INR 2.1 01/18/2015 Pt Kkz1468 Low Intensity - 1.5-2.0 01/18/2015 Pt Eac6706 Mod intensity - 2.0-3.0 01/18/2015 Pt Tel3855 Hi intensity - 3.0-4.0 01/18/2015 Pt Jhb9442 PT 18.2 seconds 01/10/2015 Pt Uer4107 INR 1.6 01/10/2015 Pt Jzg5137 Low Intensity - 1.5-2.0 01/10/2015 Pt Lxa2935 Mod intensity - 2.0-3.0 01/10/2015 Pt Kxs5436 Hi intensity - 3.0-4.0 01/10/2015 Review of Systems System Result Effective Dates Constitutional recent illness 10/27/2018 Constitutional No anorexia [...] masses 10/27/2018 None Full Exam - General 1995 [...] 10/27/2018 URINALYSIS NONAUTO W /O SCOPE CPT-4: 72431 10/27/2018 ADMIN INFLUENZA VIRU S VAC CPT-4: G0008 03/24/2018 ADMIN PNEUMOCOCCAL V ACCINE SNOMED CT: 56668673 CPT-4: G0009 03/24/2018 FLU VACC PRSV FREE I NC ANTIG Formatting Model/CDA Sections, Assigned to/Dorothea Tan CPT-4: 82069Trwkmvi 03/24/2018 Pneumococcal Polysac charide Vaccine, 23-Valent, Ad CPT-4: 27700 03/24/2018 TRIAMCINOLONE ACET I [place] NOS CPT-4: J3301 06/15/2017 THER/PROPH/DIAG INJ SC/IM CPT-4: 93692 06/15/2017 ADMIN PNEUMOCOCCAL V ACCINE SNOMED CT: 53196620 CPT-4: G0009 03/16/2017 ADMIN INFLUENZA VIRU S VAC CPT-4: G0008 03/16/2017 FLU VAC NO PRSV 4 VA L 3 YRS+ CPT-4: 18910 03/16/2017 PNEUMOCOCCAL VACC [address]: 63652115 CPT-4: 44629 03/16/2017 URINALYSIS NONAUTO W /O SCOPE CPT-4: 00829 08/26/2016 THER/PROPH/DIAG INJ SC/IM CPT-4: 50506 07/22/2016 TRIAMCINOLONE ACET I [place] NOS CPT-4: J3301 07/22/2016 ROCEPHIN, PER 250 MG CPT-4: J0696 07/22/2016 TRIAMCINOLONE ACET I [place] NOS CPT-4: J3301 02/05/2015 Vital Signs Date Vital 10/27/2018 Blood Pressure 1: 120/74 Code: 8480-6 BMI: 32.4 Code: 71459-1 Heart Rate 1: 65 bpm Height: 5'7" SpO2: 97% Weight: 207 lbs 09/27/2018 Blood Pressure 1: 128/74 Code: 8480-6 BMI: 32.4 Code: 78042-5 Heart Rate 1: 92 bpm Height: 5'7" SpO2: 97% Weight: 207 lbs 08/16/2018 Blood Pressure 1: 104/66 Code: 8480-6 BMI: 32.3 Code: 13856-9 Heart Rate 1: 94 bpm Height: 5'7" SpO2: 96% Weight: 206 lbs 07/11/2018 Blood Pressure 1: 102/68 Code: 8480-6 BMI: 34.5 Code: 24123-2 Heart Rate 1: 101 bpm Height: 5'7" SpO2: 98% Weight: 220 lbs 03/24/2018 Blood Pressure 1: 130/72 Code: 8480-6 BMI: 33.4 Code: 83415-1 Heart Rate 1: 82 bpm Height: 5'7" SpO2: 93% Weight: 213 lbs 11/18/2017 Blood Pressure 1: 128/70 Code: 8480-6 BMI: 33.6 Code: 65928-9 Heart Rate 1: 98 bpm Height: 5'7" SpO2: 97% Weight: 214 lbs 8 oz 09/30/2017 Blood Pressure 1: 100/50 Code: 8480-6 BMI: 34.0 Code: 61487-3 Heart Rate 1: 66 bpm Height: 5'7" SpO2: 96% Weight: 217 lbs 08/17/2017 Blood Pressure 1: 104/60 Code: 8480-6 BMI: 33.7 Code: 90403-0 Heart Rate 1: 99 bpm Height: 5'7" SpO2: 97% Weight: 215 lbs 06/15/2017 Blood Pressure 1: 120/64 Code: 8480-6 BMI: 33.5 Code: 76376-0 Heart Rate 1: 91 bpm Height: 5'7" SpO2: 94% Weight: 214 lbs 04/01/2017 Blood Pressure 1: 110/68 Code: 8480-6 BMI: 154.4 Code: 19433-2 Heart Rate 1: 66 bpm Height: 2'7" SpO2: 95% Weight: 211 lbs 03/16/2017 Blood Pressure 1: 130/72 Code: 8480-6 BMI: 33.0 Code: 75665-5 Heart Rate 1: 95 bpm Height: 5'7" SpO2: 97% Weight: 211 lbs 02/09/2017 Blood Pressure 1: 120/70 Code: 8480-6 BMI: 32.9 Code: 02179-7 Heart Rate 1: 78 bpm Height: 5'7" SpO2: 96% Weight: 210 lbs 10/13/2016 Blood Pressure 1: 118/76 Code: 8480-6 BMI: 32.6 Code: 70622-9 Heart Rate 1: 97 bpm Height: 5'7" SpO2: 98% Weight: 208 lbs 07/31/2016 Blood Pressure 1: 11064 Code: 8480-6 BMI: 32.1 Code: 33110-7 Heart Rate 1: 79 bpm Height: 5'7" SpO2: 94% Weight: 205 lbs 07/22/2016 Blood Pressure 1: 108/74 Code: 8480-6 BMI: 32.1 Code: 16295-0 Heart Rate 1: 71 bpm Height: 5'7" SpO2: 97% Temperature: 36.9 (C ) / 98.4 (F) Weight: 205 lbs 05/01/2016 Blood Pressure 1: 120/72 Code: 8480-6 BMI: 32.7 Code: 62851-0 Heart Rate 1: 75 bpm Height: 5'7" SpO2: 94% Weight: 209 lbs 04/06/2016 Blood Pressure 1: 106/62 Code: 8480-6 BMI: 32.7 Code: 39007-5 Heart Rate 1: 83 bpm Height: 5'7" SpO2: 97% Weight: 209 lbs 03/06/2016 Blood Pressure 1: 112/68 Code: 8480-6 BMI: 32.7 Code: 53837-0 Heart Rate 1: 90 bpm Height: 5'7" SpO2: 97% Weight: 209 lbs 03/03/2016 Blood Pressure 1: 120/62 Code: 8480-6 BMI: 32.7 Code: 49130-6 Heart Rate 1: 92 bpm Height: 5'7" SpO2: 98% Weight: 209 lbs 02/07/2016 Blood Pressure 1: 110/64 Code: 8480-6 BMI: 32.7 Code: 25344-5 Heart Rate 1: 87 bpm Height: 5'7" SpO2: 97% Weight: 209 lbs 12/13/2015 Blood Pressure 1: 11064 Code: 8480-6 BMI: 33.5 Code: 78459-9 Heart Rate 1: 90 bpm Height: 5'7" SpO2: 97% Weight: 214 lbs 12/03/2015 Blood Pressure 1: 132/76 Code: 8480-6 BMI: 33.4 Code: 02794-6 Heart Rate 1: 82 bpm Height: 5'7" SpO2: 99% Weight: 213 lbs 11/20/2015 Blood Pressure 1: 108/68 Code: 8480-6 BMI: 32.4 Code: 79886-6 Heart Rate 1: 77 bpm Height: 5'7" SpO2: 97% Weight: 207 lbs 09/17/2015 Blood Pressure 1: 122/76 Code: 8480-6 BMI: 33.0 Code: 91880-7 Heart Rate 1: 91 bpm Height: 5'7" SpO2: 97% Weight: 211 lbs 05/31/2015 Blood Pressure 1: 128/82 Code: 8480-6 BMI: 33.4 Code: 98547-4 Heart Rate 1: 98 bpm Height: 5'7" SpO2: 99% Weight: 213 lbs 02/05/2015 Blood Pressure 1: 128/80 Code: 8480-6 BMI: 32.6 Code: 61274-6 Heart Rate 1: 86 bpm Height: 5'7" SpO2: 97% Weight: 208 lbs 11/20/2014 Blood Pressure 1: 128/90 Code: 8480-6 BMI: 30.9 Code: 46898-0 Heart Rate 1: 94 bpm Height: 5'7" Weight: 197 lbs Functional Status No Functional Status data History of Present Illness Symptom Name Status Resu lt Effective Date Notes Quality constant 10/27/2018 None Onset and Resolution [...] ongoing 11/20/2015 None Hospital Follow Up _ [facility] er: fall 09/17/2015 None Hospital Follow [...] Findings Denies fever 05/31/2015 None 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 P ATIENT, LEVEL III Diagnosis: Urinary tract infection, site not specified[ICD10: N39.0] Brielle Pisano MD, [facility] CPT-4: 73467 10/27/2018 ([id number]) 32975 EST. P ATIENT, LEVEL IV Diagnosis: Atrophy of thyroid (acquired)[ICD10: E03.4] Diagnosis: Essential (primary) hypertension[ICD10: I10] Diagnosis: Other allergic rhinitis[ICD10: J30.89] Diagnosis: Other skin changes[ICD10: R23.8] Diagnosis: Chronic atrial fibrillation[ICD10: I48.2] Diagnosis: [facility] (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[ICD10: Z79.01] Valerie Pisano MD, [facility] CPT-4: 03902 09/27/2018 ([id number]) 30146 EST. P ATIENT, LEVEL IV Diagnosis: Essential (primary) hypertension[ICD10: I10] Diagnosis: Atrophy of thyroid (acquired)[ICD10: E03.4] Diagnosis: Sebaceous cyst[ICD10: L72.3] Diagnosis: Chronic atrial fibrillation[ICD10: I48.2] Diagnosis: [facility] (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[ICD10: Z79.01] Valerie Pisano MD, [facility] CPT-4: 00418 08/16/2018 ([id number]) 45044 EST. P ATIENT, LEVEL IV Diagnosis: Atrophy of thyroid (acquired)[ICD10: E03.4] Diagnosis: Essential (primary) hypertension[ICD10: I10] Diagnosis: Other fatigue[ICD10: R53.83] Diagnosis: Localized edema[ICD10: R60.0] Valerie Pisano MD, [facility] CPT-4: 81541 07/11/2018 ([id number]) 13532 EST. P ATIENT, LEVEL IV Diagnosis: Essential (primary) hypertension[ICD10: I10] Diagnosis: Atrophy of thyroid (acquired)[ICD10: E03.4] Diagnosis: Chronic atrial fibrillation[ICD10: I48.2] Valerie Pisano MD, C CPT-4: 42630 03/24/2018 ([id number]) 69876 EST. P ATIENT, LEVEL IV Diagnosis: Essential (primary) hypertension[ICD10: I10] Diagnosis: Atrophy of thyroid (acquired)[ICD10: E03.4] Diagnosis: Chronic atrial fibrillation[ICD10: I48.2] Valerie Pisano MD, [facility] CPT-4: 02270 11/18/2017 79900 EST. PATIENT, LEVEL IV Diagnosis: Localized edema[ICD10: R60.0] Roxie Pisano MD, [facility] CPT-4: 51626 09/30/2017 ([id number]) 93724 EST. P ATIENT, LEVEL III Diagnosis: Essential (primary) hypertension[ICD10: I10] Valerie Pisano MD, [facility] CPT-4: 15832 08/17/2017 ([id number]) 96480 EST. P ATIENT, LEVEL IV Diagnosis: Essential (primary) hypertension[ICD10: I10] Diagnosis: Atrophy of thyroid (acquired)[ICD10: E03.4] Diagnosis: Chronic atrial fibrillation[ICD10: I48.2] Diagnosis: Cervicalgia[ICD10: M54.2] Diagnosis: Other muscle spasm[ICD10: M62.838] Valerie Pisano MD, [facility] CPT- 4: 43733 06/15/2017 15554 EST. PATIENT, LEVEL III Diagnosis: Laceration without foreign body of other finger without damage to nail, initial encounter[ICD10: S61.218A] Roxie Pisano MD, [facility] CPT-4: 05319 04/01/2017 ([id number]) 99373 EST. P ATIENT, LEVEL IV Diagnosis: Chronic atrial fibrillation[ICD10: I48.2] Diagnosis: [facility] (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[ICD10: Z79.01] Diagnosis: Encounter for immunization[ICD10: Z23] Diagnosis: Atrophy of thyroid (acquired)[ICD10: E03.4] Valerie Pisano MD, [facility] CPT-4: 14241 03/16/2017 ([id number]) 60394 EST. P ATIENT, LEVEL IV Diagnosis: Chronic atrial fibrillation[ICD10: I48.2] Diagnosis: Essential (primary) hypertension[ICD10: I10] Diagnosis: Other fatigue[ICD10: R53.83] Diagnosis: [facility] (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[ICD10: Z79.01] Diagnosis: Atrophy of thyroid (acquired)[ICD10: E03.4] Valerie Pisano MD, C CPT-4: 76135 02/09/2017 ([id number]) [id number] EST. P ATIENT, LEVEL IV Diagnosis: Essential (primary) hypertension[ICD10: I10] Diagnosis: Chronic atrial fibrillation[ICD10: I48.2] Diagnosis: Tinea corporis[ICD10: B35.4] Diagnosis: [facility] (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[ICD10: Z79.01] Diagnosis: Other skin changes[ICD10: R23.8] Valerie Pisano MD, [facility] CPT-4: 64961 10/13/2016 53825 EST. PATIENT, LEVEL III Diagnosis: Other acute sinusitis[ICD10: J01.80] Diagnosis: Other allergic rhinitis[ICD10: J30.89] Roxie Pisano MD, [facility] CPT-4: 05163 07/31/2016 ([id number]) 04842 EST. P ATIENT, LEVEL III Diagnosis: Acute recurrent maxillary sinusitis[ICD10: J01.01] Valerie Pisano MD, C CPT-4: 54272 07/22/2016 94806 EST. PATIENT, LEVEL IV Diagnosis: Essential (primary) hypertension[ICD10: I10] Diagnosis: Other allergic rhinitis[ICD10: J30.89] Diagnosis: Localized edema[ICD10: R60.0] Roxie Pisano MD, [facility] CPT-4: 85932 05/01/2016 98311 EST. PATIENT, LEVEL III Diagnosis: Cellulitis of left lower limb[ICD10: L03.116] Diagnosis: Localized edema[ICD10: R60.0] Roxie Pisano MD, [facility] CPT-4: 24179 04/06/2016 ([id number]) Shivani hamilton no charge Diagnosis: Cellulitis of left lower limb[ICD10: L03.116] Diagnosis: Localized edema[ICD10: R60.0] Roxie Pisano MD, [facility] CPT-4: 63421 03/10/2016 ([id number]) Shivani s no charge Diagnosis: Cellulitis of left lower limb[ICD10: L03.116] Roxie Pisano MD, [facility] CPT-4: 46410 03/06/2016 81533 EST. PATIENT, LEVEL IV Diagnosis: Cellulitis of left lower limb[ICD10: L03.116] Diagnosis: Localized edema[ICD10: R60.0] Roxie Pisano MD, [facility] CPT-4: 43535 03/03/2016 ([id number]) 02558 EST. P ATIENT, LEVEL III Diagnosis: Essential (primary) hypertension[ICD10: I10] Diagnosis: [facility] (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[ICD10: Z79.01] Diagnosis: Chronic atrial fibrillation[ICD10: I48.2] Brielle Pisano MD, [facility] CPT-4: 77975 02/07/2016 ([id number]) 44371 EST. P ATIENT, LEVEL III Diagnosis: Iliotibial band syndrome, right leg[ICD10: M76.31] Diagnosis: Localized edema[ICD10: R60.0] Brielle Pisano MD, [facility] CPT- 4: 67031 12/13/2015 ([id number]) 32111 EST. P ATIENT, LEVEL III Diagnosis: Localized edema[ICD10: R60.0] Diagnosis: Essential (primary) hypertension[ICD10: I10] Brielle Pisano MD, [facility] CPT-4: 65805 12/03/2015 ([id number]) 42952 EST. P ATIENT, LEVEL IV Diagnosis: [facility] (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[ICD10: Z79.01] Diagnosis: Other skin changes[ICD10: R23.8] Diagnosis: Localized edema[ICD10: R60.0] Diagnosis: Pain in right foot[ICD10: M79.671] Valerie Pisano MD, [facility] CPT- 4: 75782 11/20/2015 92864 EST. PATIENT, LEVEL IV Diagnosis: Essential (primary) hypertension[ICD10: I10] Diagnosis: [facility] (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[ICD10: Z79.01] Diagnosis: Muscle spasm of back[ICD10: M62.830] Roxie Pisano MD, [facility] CPT- 4: 02041 09/17/2015 ([id number]) 47405 EST. P ATIENT, LEVEL IV Diagnosis: Localized edema[ICD10: R60.0] Diagnosis: Other specified hypothyroidism[ICD10: E03.8] Diagnosis: Essential (primary) hypertension[ICD10: I10] [facility] CPT-4: 77642 05/31/2015 ([id number]) 02909 EST. P ATIENT, LEVEL III Diagnosis: ALLERGIC RHINITIS[ICD9: 477.9] Diagnosis: ESSENTIAL HYPERTENSION[ICD9: 401.9] Brielle Pisano MD, [facility] CPT-4: 76110 02/05/2015 ([id number]) OFFICE VISI , [facility] - LEVEL 4 Diagnosis: ESSENTIAL HYPERTENSION[ICD9: 401.9] Diagnosis: HYPOTHYROIDISM[ICD9: 244.9] Diagnosis: ACTINIC KERATOSIS[ICD9: 702.0] Valerie Pisano MD, [facility] CPT-4: 90195 11/20/2014 Plan of Care Planned Activity Notes C odes Status Date Visit Plan: UTI - pt with positive urinalysis - culture sent if appropriate. Antibiotic electronically prescribed to pt's pharmacy of choice. Pt to call if symptoms do not improve. 10/27/2018 Appointment: Brielle Cavazos WPtel: [address] [place], [place] [phone] (10 min) Simple 10/27/2018 Patient Education: Patient [...] Hernandez. 09/27/2018 Appointment: [phone] [facility] (15 min) Moderate 09/27/2018 Patient Education: Patient [...] 4mg daily. 08/16/2018 Appointment: [facility]el[facility] [phone] [facility] (15 min) Moderate 08/16/2018 Patient Education: Patient Medication Summary Completed 08/16/2018 Patient Education: Hypertension Completed 08/16/2018 Patient Education: Patient Medication Summary Completed 07/29/2018 Appointment: Brielle Cavazos WPtel: [phone] [phone] [place] (15 min) Moderate 07/12/2018 Visit [...] daily. 07/11/2018 Appointment: [facility] [phone] [facility] [place] (15 min) Moderate 07/11/2018 Patient Education: Patient [...] given today. 03/24/2018 Appointment: Valerie Pisano WPtel: [phone] [facility] (15 min) Moderate 03/24/2018 Patient Education: Patient Medication Summary Completed 03/24/2018 Patient Education: Hypertension Completed 03/24/2018 Visit Plan: Hypertension - well con trofedeed - continue with current medications, continue with [...] of control. 11/18/2017 Appointment: Valerie Pisano WPtel: [facility] (15 min) Moderate 11/18/2017 Patient Education: Patient Medication Summary Completed 11/18/2017 Referral: [facility] WPtel: 1 [facility] Pt notified at appointment Appointment [...] Unna Boots 09/30/2017 Appointment: [phone] (30 min) Complex 09/30/2017 Patient Education: Patient Medication Summary Completed 09/30/2017 Care Plan: Referral Order SNOMED-CT : [id number] Pending 09/30/2017 Visit Plan: Hypertension - well [...] this time. 08/17/2017 Appointment: [facility]el[facility] [phone] [facility] (15 min) Moderate 08/17/2017 Patient [...] therapy - will refer to [facility] physical therapy. RX for voltaren to neck muscles. allergies - kenalog 40mg im [employer] squibb - lot # [id number] expires september 2018 06/15/2017 Visit Plan: Hypertension [...] therapy - will refer to [facility] physical therapy. RX for voltaren to neck muscles. 06/15/2017 Appointment: [facility]isano [facility]el[facility] [phone] [facility] (15 min) Moderate 06/15/2017 Patient Education: Patient Medication Summary Completed 06/15/2017 Care Plan: Referral Order SNOMED-CT : [id number] Pending 06/15/2017 Appointment: Nurse Visit 04/05/2017 Appointment: [...] booster. 04/01/2017 Appointment: [facility]ares [phone] (15 min) Moderate 04/01/2017 Patient Education: Patient [...] 03/16/2017 Appointment: [facility]Ptel[facility] [phone] [facility] (15 min) Moderate 03/16/2017 Patient [...] spray. 02/09/2017 Appointment: [facility]Ptel[facility] [phone] [facility] (15 min) Moderate 02/09/2017 Patient [...] for nystatin 10/13/2016 Appointment: Valerie Pisano WPtel: [phone] [facility] (15 min) Moderate 10/13/2016 Patient Education: Patient Medication Summary Completed 10/13/2016 Patient Education: Obesity Completed 10/13/2016 Patient Education: Hypertension Completed 10/13/2016 Care Plan: Urine Culture Pending 08/31/2016 Appointment: Roxie Cazares WPtel: [phone] [facility] Lab Draw 08/27/2016 Appointment: Nurse Visit [...] spray. 07/31/2016 Appointment: Brielle Cavazos WPtel: [phone] [phone] (30 min) Complex 07/31/2016 Patient Education: Patient Medication Summary Completed 07/31/2016 Patient Education: Obesity Completed 07/31/2016 Visit Plan: Sinusitis - Pt has acut e infection - pain in face, maxillary region, Pt informed to use decongestant, RX given to patient, sinus rinses also recommended. Call if symptoms do not show improvement. 07/22/2016 Appointment: [facility]Ptel[facility] [phone] [facility] (15 min) Moderate 07/22/2016 Patient [...] peripheral edema. 05/01/2016 Appointment: [phone] (30 min) Complex 05/01/2016 Patient Education: Patient [...] peripheral edema. 04/06/2016 Appointment: Roxie Cazares WPtel: [facility] (30 min) Complex 04/06/2016 Patient Education: Patient Medication Summary Completed 04/06/2016 Patient Education: Obesity Completed 04/06/2016 Visit Plan: left foot - improved - pt finished with antibiotics - continue to monitor - notify clinic with any concerns. Repeat INR today. 03/10/2016 Appointment: Brielle Cavazos WPtel: [phone] (30 min) Complex 03/10/2016 Patient Education: Patient Medication Summary Completed 03/10/2016 Visit Plan: Cellulitis - continue w ith oral antibiotics as previously directed, return to clinic as previously directed, call for acute change in symptoms, worsening redness, warmth, discharge. 03/06/2016 Appointment: Brielle Cavazos WPtel: [phone] (15 min) Moderate 03/06/2016 Patient Education: Patient Medication Summary Completed 03/06/2016 Patient Education: Obesity Completed 03/06/2016 Visit Plan: Cellulitis - continue w ith oral antibiotics as previously directed, return to clinic as previously directed, call for acute change in symptoms, worsening redness, warmth, discharge. 03/03/2016 Appointment: Brielle Cavazos WPtel: [phone] (15 min) Moderate 03/03/2016 Patient Education: [...] and 3.5. 02/07/2016 Appointment: Brielle Cavazos WPtel: [facility] (30 min) Complex 02/07/2016 Patient Education: Patient Medication Summary Completed 02/07/2016 Patient Education: Obesity Completed 02/07/2016 Patient Education: Hypertension Completed 02/07/2016 Appointment: Brielle Cavazos WPtel: [facility] [place] [phone] (30 min) Complex 02/04/2016 Visit Plan: Iliotibial [...] peripheral edema. 12/13/2015 Appointment: Brielle Cavazos WPtel: [address] [place] [address] (15 min) Moderate 12/13/2015 Patient Education: Patient [...] at home. 12/03/2015 Appointment: Brielle Cavazos WPtel: [facility] [place] [phone] (30 min) Complex 12/03/2015 Patient Education: Patient [...] Hypertension Completed 02/05/2015 Appointment: Valerie Pisano WPtel: [facility] (15 min) Moderate 01/29/2015 Visit [...] 11/20/2014 Appointment: Val[facility] Pisano [facility]Ptel: [phone] [facility] [place] ([place]) New Patient 11/20/2014 Patient Education: Patient Medication Summary Completed 11/20/2014 Patient Education: Hypertension Completed 11/20/2014 Patient Education: Patient Medication Summary Completed 10/19/2014 Referral: [facility] WPtel: Referral Appointment Requested Referral: [facility] Referral Appointment Confirmed Instructions Comment . Edema [...] to wound care for possible Unna Boots Check your PT INR on Wednesday or [...] the office. get blood work one w [place] [facility] before next appt - fasting labs Decrease [...] back to one pill twice daily. . Edema - pt has bee n [...] for tetanus booster. . [facility] foot [facility] - pt finished with antibiotics - [...] therapy - will refer to [facility] physical therapy. RX for voltaren to neck muscles. allergies - kenalog 40mg im bristol [employer] squibb - lot # [id number] expires september 2018 . Hypertension - wel [...] therapy - will refer to [facility] physical therapy. RX for voltaren to [...]
--- NOTE | 2019-09-12 11:12 | NUR ---
Admission Drug Regimen Review Completed: Date: 09/12/19 Time: 111 Physician Notified: COLETTE PISANO MD Date: 09/12/19 Time: 1111 Issue Identified; Action Plan to Resolve and Any Action Taken: Coumadin 4mg PO daily was not continued onto the swing bed account. I clarified with Dr. Pisano et she does want this medication to continue. This was reordered for swing bed per Dr. Pisano's telephone order.
--- OUTSIDE RECORDS SUMMARY | 2019-09-12 11:12 | XMS REPORT | CCD ---
Author Author Clara Pisano Organization [facility] Address [address] [place] [address] Phone Care Team Providers Care Forcer Maker Name Role Phone PP Unavailable CCM Unavailable Summary Purpose Interface Exchange Insurance Providers Payer name Policy type / Coverage type Covered green party ID Effective Begin Date Effective End Date WPS Medicare Part B Medicare Part B [id number] 2018 Unknown [employer] Medicare Part B [id number] Unknown Family history Sister Diagnosis Age At Onset defect Unknown Breast cancer Unknown Daughter Diagnosis Age At Onset Breast cancer Unknown Mother Diagnosis Age At Onset No Family Disease Entered N/A Social History Social History Element Codes Description Effective Dates Marital status Unknown M [address] 11/20/2014 Number of children Unknown 6 11/20/2014 Employment Unknown Retir ed 11/20/[address]: 7091747 Quit over 10 years ago 1963 11/20/2014 [...] ICD-9: 401.9 ICD-10: I10 Active 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 [...] Unknown HYPOTHYROIDISM ICD-9: 244.9 Active 11/19/2014 Unknown shelter current us 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 therapy ICD-9: V58.61 Active 10/19/2014 Unknown Problems Condition Codes Effectiv e Dates Condition Status Urinary tract infect ion, site not specified ICD-9: 599.0 ICD-10: N39.0 02/13/2016 Active Atrophy of thyroid ( acquired) ICD-9: 244.8 ICD-10: E03.4 02/09/2017 Active Chronic atrial fibri llation ICD-9: 427.31 ICD-10: I48.2 02/06/2016 Active Essential (primary) hypertension ICD-9: 401.9 ICD-10: I10 04/30/2016 Active shelter (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 ICD-9: V58.61 [...] 11/19/2014 Active HYPOTHYROIDISM ICD-9: 244.9 11/19/2014 Active shelter current us 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 therapy ICD-9: V58.61 10/19/2014 Active Medications Medication Codes Instruc tions Start Date Stop Date Fill Instructions doxycycline hyclate 100 mg capsule RxNorm: 9482289 1 Capsule(s) PO BID 10/31/2018 11/06/2018 Ac tive doxycycline hyclate 100 mg capsule RxNorm: 6928755 1 Capsule(s) PO BID 10/31/2018 10/30/2018 In active Keflex 500 mg capsule RxNorm: 423284 1 Capsule(s) PO TID 10/27/2018 10/30/2018 Inactive ceftriaxone 500 mg s olution for injection RxNorm: 8308644 Inj 10/27/2018 10/27/2018 Inactive Coumadin 4 mg tablet RxNorm: 661052 1 Tablet(s) PO daily 08/16/2018 08/10/2019 Active this is an update to her RX - she will l et you know when she needs refill triamcinolone aceton sreekanth 0.025 % topical cream RxNorm: 9913550 1 Application TOP QI D 08/16/2018 No Stop Date Active levothyroxine 125 mc g tablet RxNorm: 836141 TAKE ONE TABLET BY [facility] DAILY ON WEDNESDAY, WED, AND WEDNESDAY, AND 1/2 TABLET ON , , WED AND WEDNESDAY. TAKE ON AN EMPTY STOMACH 08/04/2018 04/30/2019 Active meclizine 25 mg tablet RxNorm: 750536 1 Tablet(s) PO TID as needed Dizziness 07/22/2018 No Stop Date Active meclizine 25 mg tablet RxNorm: 686288 1 Tablet(s) PO TID as needed Dizziness 07/19/2018 07/21/2018 In active furosemide 40 mg tablet RxNorm: 341850 1 Tablet(s) BID take 1.5 tabs twice a da y x 7 days then 1 pill daily thereafter 07/11/2018 02/05/2019 Active Coumadin 4 mg tablet RxNorm: 922302 1 Tablet(s) PO daily except 1.5 pills on WEDNESDAY AND Wednesday07/11/2018 08/15/2018 Inactive this is an update to her RX - she will let you know when she needs refill warfarin 5 mg tablet RxNorm: 290773 Tablet(s) TAKE ONE TABLET BY MOUTH DAILY EXCEPT T/TH TAKE 4 MG 04/06/2018 08/22/2019 Active diltiazem 60 mg tablet RxNorm: 485194 1/2 Tablet(s) PO QID 03/24/2018 No Stop Date Active levothyroxine 125 mc g tablet RxNorm: 167455 TAKE ONE TABLET BY [facility] DAILY ON WEDNESDAY, WED, AND WEDNESDAY, AND 1/2 TABLET ON , , WED AND WEDNESDAY. TAKE ON AN EMPTY STOMACH 02/02/2018 07/31/2018 Inactive Coumadin 4 mg tablet RxNorm: 236300 TAKE ONE TABLET BY MOUTH DAILY ON AND Wednesday10/14/2017 07/10/2018 Inactive nystatin 100,000 uni t/gram topical cream RxNorm: 010832 1 Application TOP TID 08/17/2017 No Stop Date Active Voltaren 1 % topical gel RxNorm: 369951 2 Gram(s) TOP TID luiz ly to shoulder and neck 08/17/2017 No Stop Date Active triamcinolone aceton sreekanth 0.025 % topical cream RxNorm: 4431048 1 Application TOP BI D 08/17/2017 08/15/2018 In active levothyroxine 125 mc g tablet RxNorm: 300428 1 Tablet(s) UD 1 pill wed/wed/wed, 1/2 pill //wed/wed take ON AN EMPTY STOMACH 08/05/2017 02/01/2018 Inactive Coumadin 4 mg tablet RxNorm: 419529 1 Tablet(s) PO Wed/urs 07/29/2017 10/13/2017 Inactive warfarin 5 mg tablet RxNorm: 290290 TAKE 1 AND 1/2 TABLETS BY MOUTH ON AND WEDNESDAY. TAKE ONLY 1 TABLET BY MOUTH ALL OTHER DAYS OF THE WEEK 07/12/2017 04/05/2018 In active furosemide 40 mg tablet RxNorm: 487711 Tablet(s) BID TAKE ONE TABLET BY MOUTH D AILY 06/15/2017 07/10/2018 Inactive Voltaren 1 % topical gel RxNorm: 950577 2 Gram(s) TOP TID luiz ly to shoulder and neck 06/15/2017 08/16/2017 Inactive Keflex 500 mg capsule RxNorm: 159191 1 Capsule(s) PO TID 04/01/2017 04/07/2017 Inactive furosemide 40 mg tablet RxNorm: 672692 TAKE ONE TABLET BY MOUTH DAILY 03/18/2017 06/14/2017 In active Claritin-D 12 Hour 5 mg-120 mg tablet,extended release RxNorm: 0237916 1 Tablet(s) PO BID 03/16/2017 05/14/2017 Inactive Lipitor 20 mg tablet RxNorm: 477036 1 Tablet(s) PO daily 02/09/2017 03/10/2017 Inactive lisinopril 2.5 mg ta blet RxNorm: 782040 1 Tablet(s) PO daily 02/09/2017 03/10/2017 Inactive Nasonex 50 mcg/actua tion [place] RxNorm: 5706712 1 [place] NASAL BID 02/09/2017 09/06/2017 Inactive levothyroxine 125 mc g tablet RxNorm: 912398 1 Tablet(s) UD 1 pill wed/wed/wed, 1/2 pill //sat/sun take ON AN EMPTY STOMACH 02/09/2017 08/04/2017 Inactive fluorouracil 5 % top ical cream RxNorm: 133382 1 Application TOP BID 02/09/2017 02/18/2017 Inactive potassium chloride E R 20 mEq tablet,extended release RxNorm: 803451 Tablet(s) TAKE ONE TABLET BY MOUTH DAILY 02/08/2017 02/02/2018 Inactive warfarin 5 mg tablet RxNorm: 380388 TAKE 1 AND 1/2 TABLETS BY MOUTH ON AND WEDNESDAY. TAKE ONLY 1 TABLET BY MOUTH ALL OTHER DAYS OF THE WEEK 12/14/2016 05/30/2017 In active potassium chloride E R 20 mEq tablet,extended release RxNorm: 070621 TAKE ONE TABLET BY MOUTH DAILY 10/29/2016 01/26/2017 Inactive warfarin 5 mg tablet RxNorm: 575793 TAKE 1 AND 1/2 TABLETS BY MOUTH ON AND WEDNESDAY. TAKE ONLY 1 TABLET BY MOUTH ALL OTHER DAYS OF THE WEEK 10/27/2016 12/13/2016 In active nystatin 100,000 uni t/gram topical cream RxNorm: 669406 1 Application TOP TID 10/13/2016 08/16/2017 In active nitrofurantoin 50 mg capsule RxNorm: 827119 1 Capsule(s) PO BID 09/04/2016 09/03/2016 Inactive nitrofurantoin macro crystal 50 mg capsule RxNorm: 406255 1 Capsule(s) PO BID 09/04/2016 09/10/2016 In active Cipro 500 mg tablet RxNorm: 109312 1 Tablet(s) PO BID 08/26/2016 10/12/2016 Inactive Zyrtec 10 mg tablet RxNorm: 3043610 1 Tablet(s) PO daily 07/31/2016 08/29/2016 Inactive prednisone 20 mg tablet RxNorm: 829121 2 Tablet(s) PO daily 07/31/2016 08/02/2016 Inactive Kenalog 40 mg/mL zohra pension for injection RxNorm: 8652976 Milliliter(s) Inj 07/22/2016 07/22/2016 In active ceftriaxone 500 mg s olution for injection RxNorm: 5595507 Inj 07/22/2016 07/22/2016 Inactive Flonase Allergy Reli ef 50 mcg/actuation nasal spray,suspension RxNorm: 4260657 1 [place] NASAL BID 07/22/2016 08/20/2016 Inactive azithromycin 250 mg tablet RxNorm: 453779 2 Tablet(s) PO on day #1, then 1 pill daily x 4 days 07/22/2016 10/12/2016 Inactive warfarin 5 mg tablet RxNorm: 926059 TAKE 1 AND 1/2 TABLETS BY MOUTH ON AND WEDNESDAY. TAKE ONLY 1 TABLET BY MOUTH ALL OTHER DAYS OF THE WEEK 07/09/2016 09/30/2016 In active levothyroxine 125 mc g tablet RxNorm: 471189 Tablet(s) TAKE ONE TA BLET BY MOUTH DAILY ON AN EMPTY STOMACH 06/23/2016 02/08/2017 Inactive levothyroxine 125 mc g tablet RxNorm: 101882 TAKE ONE TABLET BY [facility] DAILY ON AN EMPTY STOMACH 06/23/2016 06/22/2016 Inactive levothyroxine 125 mc g tablet RxNorm: 196850 TAKE ONE TABLET BY [facility] DAILY ON AN EMPTY STOMACH 06/23/2016 08/04/2017 Inactive cetirizine 10 mg tablet RxNorm: 7191344 TAKE ONE TABLET BY MOUTH DAILY 06/16/2016 10/13/2016 In active furosemide 40 mg tablet RxNorm: 904252 Tablet(s) TAKE ONE TABLET BY MOUTH DAILY 06/05/2016 12/01/2016 In active cetirizine 10 mg tablet RxNorm: 0872838 1 Tablet(s) PO daily 05/01/2016 05/30/2016 Inactive Levaquin 250 mg tablet RxNorm: 129884 Tablet(s) PO 2 pills day one and 1 pill day 2-7 04/06/2016 07/21/2016 Inactive warfarin 5 mg tablet RxNorm: 146462 Tablet(s) 1/2 TABLETS BY MOUTH ON AND WEDNESDAY. TAKE ONLY 1 TABLET BY MOUTH ALL OTHER DAYS OF THE WEEK 03/18/2016 07/07/2016 In active triamcinolone aceton sreekanth 0.025 % topical cream RxNorm: 4069275 1 Application TOP BI D 03/10/2016 08/16/2017 In active potassium chloride E R 20 mEq tablet,extended release RxNorm: 966906 1 Tablet(s) PO daily 03/04/2016 06/01/2016 Inactive Levaquin 250 mg tablet RxNorm: 511959 Tablet(s) PO 2 pills day one and 1 pill day 2-7 03/04/2016 04/05/2016 Inactive Levaquin 250 mg tablet RxNorm: 326483 Tablet(s) PO 2 pills day one and 1 pill day 2-7 03/03/2016 03/03/2016 Inactive potassium chloride E R 20 mEq tablet,extended release RxNorm: 870354 1 Tablet(s) PO daily 03/03/2016 03/03/2016 Inactive Cipro 500 mg tablet RxNorm: 554700 1 Tablet(s) PO BID 02/20/2016 07/21/2016 Inactive Cipro 500 mg tablet RxNorm: 220471 1 Tablet(s) PO BID 02/20/2016 02/19/2016 Inactive furosemide 40 mg tablet RxNorm: 812467 TAKE ONE TABLET BY MOUTH DAILY 01/27/2016 01/26/2016 In active warfarin 5 mg tablet RxNorm: 751272 TAKE 1 AND 1/2 TABLETS BY MOUTH ON AND WEDNESDAY. TAKE ONLY 1 TABLET BY MOUTH ALL OTHER DAYS OF THE WEEK 01/27/2016 01/26/2016 In active furosemide 40 mg tablet RxNorm: 441976 TAKE ONE TABLET BY MOUTH DAILY 01/27/2016 06/04/2016 In active warfarin 5 mg tablet RxNorm: 881222 TAKE 1 AND 1/2 TABLETS BY MOUTH ON AND WEDNESDAY. TAKE ONLY 1 TABLET BY MOUTH ALL OTHER DAYS OF THE WEEK 01/27/2016 03/17/2016 In active potassium chloride E R 20 mEq tablet,extended release RxNorm: 839828 1 Tablet(s) PO daily 11/20/2015 03/02/2016 Inactive furosemide 40 mg tablet RxNorm: 715564 TAKE ONE TABLET BY MOUTH DAILY 11/12/2015 01/26/2016 In active Zovirax 5 % topical cream RxNorm: 820419 TOP QID 0 09/24/2015 09/23/2015 Inactive Zovirax 5 % topical cream RxNorm: 776405 TOP QID 0 09/24/2015 11/19/2015 Inactive nystatin 100,000 uni t/gram topical cream RxNorm: 012167 1 Application TOP TID 09/17/2015 10/12/2016 In active warfarin 5 mg tablet RxNorm: 084951 TAKE 1 AND 1/2 TABLETS BY MOUTH ON AND WEDNESDAY. TAKE ONLY 1 TABLET BY MOUTH ALL OTHER DAYS OF THE WEEK 08/19/2015 01/05/2016 In active loratadine 10 mg tablet RxNorm: 556882 1 Tablet(s) PO daily 07/30/2015 07/23/2016 Inactive loratadine 10 mg tablet RxNorm: 880522 1 Tablet(s) PO daily 07/30/2015 07/29/2015 Inactive furosemide 40 mg tablet RxNorm: 216120 TAKE ONE TABLET BY MOUTH DAILY 06/24/2015 11/11/2015 In active levothyroxine 125 mc g tablet RxNorm: 204118 1 Tablet(s) PO daily 05/31/2015 05/24/2016 Inactive furosemide 40 mg tablet RxNorm: 744923 1 Tablet(s) PO daily 04/05/2015 06/23/2015 Inactive warfarin 5 mg tablet RxNorm: 335953 TAKE 1 AND 1/2 TABLETS BY MOUTH ON AND WEDNESDAY. TAKE ONLY 1 TABLET BY MOUTH ALL OTHER DAYS OF THE WEEK 02/12/2015 07/29/2015 In active Flonase Allergy Reli ef 50 mcg/actuation nasal spray,suspension RxNorm: 2 [place] NASAL daily 02/05/2015 03/06/2015 Inactive Kenalog 40 mg/mL zohra pension for injection RxNorm: 2442626 Milliliter(s) Inj 02/05/2015 02/05/2015 In active warfarin 5 mg tablet RxNorm: 469540 Take 7.5mg (1 1/2 tablets) Wednesday and and 1 Tablet(s) PO (5mg) all other days 01/11/2015 02/09/2015 Inactive levothyroxine 125 mc g tablet RxNorm: 619209 1 Tablet(s) PO every other day 01/01/2015 05/30/2015 In active alternate with 150 levothyroxine 150 mc g tablet RxNorm: 583490 1 Tablet(s) PO every other day 01/01/2015 05/30/2015 In active alternate with 125 loratadine 10 mg tablet RxNorm: 538383 Tablet(s) PO as needed No Start Date Active Fish Oil 1,000 mg ca psule RxNorm: 1 Capsule(s) PO TID No Start Date Active magnesium 250 mg tablet RxNorm: 1 Tablet(s) PO daily No Start Date Active Vitamin D3 2,000 uni t tablet RxNorm: 167315 2 Tablet(s) PO daily No Start Date Active Fosamax 35 mg tablet RxNorm: 718696 1 Tablet(s) PO QW No Start Date Active levothyroxine 125 mc g tablet RxNorm: 280282 1 Tablet(s) PO daily No Start Date 12/31/2014 Inactive levothyroxine 150 mc g tablet RxNorm: 195427 1 Tablet(s) PO daily No Start Date 12/31/2014 Inactive diltiazem 60 mg tablet RxNorm: 624250 1 Tablet(s) PO QID No Start Date 03/23/2018 Inactive meclizine 25 mg tablet RxNorm: 273943 1 Tablet(s) PO TID as needed Dizziness No Start Date 07/18/2018 Inactive furosemide 40 mg tablet RxNorm: 798548 1 Tablet(s) PO daily No Start Date 04/04/2015 Inactive potassium chloride RxNorm: miscellaneous No Start Date 11/19/2015 Inactive Vitamin D2 oral RxNorm: 4018 oral No Start Date 05/31/2015 Inactive warfarin 5 mg tablet RxNorm: 139652 1 Tablet(s) PO daily No Start Date 01/10/2015 Inactive Coumadin 4 mg tablet RxNorm: 438007 1 Tablet(s) PO Wed/ No Start Date 07/28/2017 Inactive Medication Administered Medication Codes Instruc tions Start Date Status ceftriaxone 500 mg solution for injection RxNorm: 9923689 10/27/2018 No longer A ctive ceftriaxone 500 mg solution for injection RxNorm: 7329963 07/22/2016 No longer A ctive Kenalog 40 mg/mL suspension for injection RxNorm: 8998237 Milliliter 07/22/2016 No longer Active Kenalog 40 mg/mL suspension for injection RxNorm: 1275869 Milliliter 02/05/2015 No longer Active Immunizations Vaccine [...] skin changes ICD-10: R23.8 ICD-9: 782.9 09/27/2018 shelter (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 ICD-10: Z79.01 ICD-9: [...] 11/20/2014 ACTINIC KERATOSIS ICD-9: 702.0 11/20/2014 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 ICD-9: [...] Code Item Item Code Result Date Pt Dlz1875 PT 17.3 seconds 11/03/2018 Pt Jip5305 INR 1.5 11/03/2018 Pt Yqt9889 Low Intensity - 1.5-2.0 11/03/2018 Pt Ecf1940 Mod intensity - 2.0-3.0 11/03/2018 Pt Lad9236 Hi intensity - 3.0-4.0 11/03/2018 Urine Culture Ucult Comp lete >100,000 col/ml aerobic grow th sent to ref lab 10/28/2018 Pt Cxq6276 PT 24.4 seconds 10/24/2018 Pt Ymy8338 INR 2.2 10/24/2018 Pt Ypk1980 Low Intensity - 1.5-2.0 10/24/2018 Pt Oew7774 Mod intensity - 2.0-3.0 10/24/2018 Pt Syd2123 Hi intensity - 3.0-4.0 10/24/2018 Lipid Ord30 CHOL 143 mg/dL 10/24/2018 Lipid Ord30 HDL 52.0 mg/dl 10/24/2018 Lipid Ord30 TRIG 78 mg/dL 10/24/2018 Lipid Ord30 LDL 75 mg/dL 10/24/2018 Lipid Ord30 C/HDL 2.8 Ratio 10/24/2018 Comp Metabolic Xkj909 NA 142 mEq/L 10/24/2018 Comp Metabolic Rzu057 K 4.6 mEq/L 10/24/2018 Comp Metabolic Rsw278 CL 107 mEq/L 10/24/2018 Comp Metabolic Xxe686 CO2 27.0 mEq/L 10/24/2018 Comp Metabolic Bjm872 AN ION GAP 13 10/24/2018 Comp Metabolic Xei281 GL UCOSE 82 mg/dL 10/24/2018 Comp Metabolic Tcb511 Cr eat 1.1 mg/dL 10/24/2018 Comp Metabolic Iwu431 eG FR 54 ml/min/1.73m2 10/24 Comp Metabolic Fwn881 BUN 23 mg/dL 10/24/2018 Comp Metabolic Ztr099 B/ C Ratio 21.9 Ratio 10/24/2018 Comp Metabolic Mzc353 CA LCIUM 9.0 mg/dL 10/24/2018 Comp Metabolic Ccy969 AL K PHOS 64 U/L 10/24/2018 Comp Metabolic Nby115 T(SGOT) 18 U/L 10/24/2018 Comp Metabolic Xxz671 AL T(SGPT) 14 U/L 10/24/2018 Comp Metabolic Mmr204 BI LI T 0.5 mg/dL 10/24/2018 Comp Metabolic Knp753 AL BUMIN 3.0 g/dL 10/24/2018 Comp Metabolic Yty606 TP RO 5.2 g/dL 10/24/2018 Comp Metabolic Jry685 GL OB 2.2 g/dL 10/24/2018 Comp Metabolic Lyq509 A/ G Ratio 1.4 Ratio 10/24/2018 Comp Metabolic Btx421 Os mo 286 mOsmo 10/24/2018 Pt Otg3750 PT 23.8 seconds 09/29/2018 Pt Dlq9997 INR 2.2 09/29/2018 Pt Pdr7075 Low Intensity - 1.5-2.0 09/29/2018 Pt Ffz9554 Mod intensity - 2.0-3.0 09/29/2018 Pt Zrl8752 Hi intensity - 3.0-4.0 09/29/2018 Pt Dpx7559 PT 19.6 seconds 09/19/2018 Pt Sbb9047 INR 1.7 09/19/2018 Pt Xju3639 Low Intensity - 1.5-2.0 09/19/2018 Pt Zsu5902 Mod intensity - 2.0-3.0 09/19/2018 Pt Tni2686 Hi intensity - 3.0-4.0 09/19/2018 Pt Qpu8230 PT 16.8 seconds 09/12/2018 Pt Pkx6861 INR 1.4 09/12/2018 Pt Ksn7249 Low Intensity - 1.5-2.0 09/12/2018 Pt Ejv6411 Mod intensity - 2.0-3.0 09/12/2018 Pt Otv4997 Hi intensity - 3.0-4.0 09/12/2018 Pt Uuz1718 PT 13.1 seconds 09/07/2018 Pt Pmk5981 INR 1.0 09/07/2018 Pt Hct7207 Low Intensity - 1.5-2.0 09/07/2018 Pt Xwx5390 Mod intensity - 2.0-3.0 09/07/2018 Pt Qrt9824 Hi intensity - 3.0-4.0 09/07/2018 Pt Qhu0183 PT 24.1 seconds 08/23/2018 Pt Tgd0613 INR 2.2 08/23/2018 Pt Nyt0081 Low Intensity - 1.5-2.0 08/23/2018 Pt Vrd9389 Mod intensity - 2.0-3.0 08/23/2018 Pt Yfq8638 Hi intensity - 3.0-4.0 08/23/2018 Pt Kbv1835 PT 30.9 seconds 08/16/2018 Pt Zar8724 INR 3.0 08/16/2018 Pt Kvy8077 Low Intensity - 1.5-2.0 08/16/2018 Pt Nov9965 Mod intensity - 2.0-3.0 08/16/2018 Pt Sqo5365 Hi intensity - 3.0-4.0 08/16/2018 Pt Tsc7352 PT 29.5 seconds 08/01/2018 Pt Irg8322 INR 2.8 08/01/2018 Pt Rkj6817 Low Intensity - 1.5-2.0 08/01/2018 Pt Xao1615 Mod intensity - 2.0-3.0 08/01/2018 Pt Xon1680 Hi intensity - 3.0-4.0 08/01/2018 Pt Ctj0218 PT 24.2 seconds 07/25/2018 Pt Nde4900 INR 2.2 07/25/2018 Pt Fja9391 Low Intensity - 1.5-2.0 07/25/2018 Pt Dfv3777 Mod intensity - 2.0-3.0 07/25/2018 Pt Wxy4038 Hi intensity - 3.0-4.0 07/25/2018 Pt Quy0455 PT 38.6 seconds 07/19/2018 Pt Omz8610 INR 4.0 07/19/2018 Pt Lnt0634 Low Intensity - 1.5-2.0 07/19/2018 Pt Ykx3074 Mod intensity - 2.0-3.0 07/19/2018 Pt Yzf5944 Hi intensity - 3.0-4.0 07/19/2018 Pt Mpy7206 PT 25.7 seconds 07/11/2018 Pt Box8694 INR 2.4 07/11/2018 Pt Rlg4179 Low Intensity - 1.5-2.0 07/11/2018 Pt Dgq7590 Mod intensity - 2.0-3.0 07/11/2018 Pt Fem3182 Hi intensity - 3.0-4.0 07/11/2018 Pt Ilc6978 PT 18.5 seconds 07/08/2018 Pt Oqo8607 INR 1.6 07/08/2018 Pt Ngl5429 Low Intensity - 1.5-2.0 07/08/2018 Pt Jff4251 Mod intensity - 2.0-3.0 07/08/2018 Pt Nop0345 Hi intensity - 3.0-4.0 07/08/2018 Pt Yvv9232 PT 27.3 seconds 06/29/2018 Pt Ztg4744 INR 2.6 06/29/2018 Pt Roy3341 Low Intensity - 1.5-2.0 06/29/2018 Pt Jpw4726 Mod intensity - 2.0-3.0 06/29/2018 Pt Ofm1725 Hi intensity - 3.0-4.0 06/29/2018 Pt Zzn0791 PT 24.0 seconds 05/26/2018 Pt Qyv4311 INR 2.2 05/26/2018 Pt Bkk3551 Low Intensity - 1.5-2.0 05/26/2018 Pt Hhq6940 Mod intensity - 2.0-3.0 05/26/2018 Pt Tea7222 Hi intensity - 3.0-4.0 05/26/2018 Tsh Ord6 [...] 29.6 pg 03/25/2018 Cbc With Differential Ord2 [place]% 9.5 % 03/25/2018 Cbc With Differential Ord2 [...] 2.19 K/ul 03/25/2018 Cbc With Differential Ord2 [place] ABS# 0.8 K/ul 03/25/2018 Cbc With Differential Ord2 Eos ABS# 0.3 K/ul 03/25/2018 Cbc With Differential Ord2 Baso ABS# 0.0 K/ul 03/25/2018 Lipid Ord30 CHOL 156 mg/dL 03/25/2018 Lipid Ord30 HDL 52.0 mg/dl 03/25/2018 Lipid Ord30 TRIG 98 mg/dL 03/25/2018 Lipid Ord30 LDL 84 mg/dL 03/25/2018 Lipid Ord30 C/HDL 3.0 Ratio 03/25/2018 Free T4 Uet220 FREE T4 1.73 ng/dL 03/25/2018 Comp Metabolic Qol832 NA 143 mEq/L 03/25/2018 Comp Metabolic Gcj968 K 4.6 mEq/L 03/25/2018 Comp Metabolic Uhx793 CL 108 mEq/L 03/25/2018 Comp Metabolic Lwp067 CO2 26.0 mEq/L 03/25/2018 Comp Metabolic Ubd445 AN ION GAP 14 03/25/2018 Comp Metabolic Kwd507 GL UCOSE 87 mg/dL 03/25/2018 Comp Metabolic Fwh032 Cr eat 1.2 mg/dL 03/25/2018 Comp Metabolic Vjp285 eG FR 48 ml/min/1.73m2 03/25 Comp Metabolic Lmq518 BUN 18 mg/dL 03/25/2018 Comp Metabolic Wwu958 B/ C Ratio 15.5 Ratio 03/25/2018 Comp Metabolic Dhp574 CA LCIUM 9.1 mg/dL 03/25/2018 Comp Metabolic Mcz162 AL K PHOS 58 U/L 03/25/2018 Comp Metabolic Odt149 T(SGOT) 21 U/L 03/25/2018 Comp Metabolic Cet988 AL T(SGPT) 13 U/L 03/25/2018 Comp Metabolic Eip849 BI LI T 0.7 mg/dL 03/25/2018 Comp Metabolic Luu559 AL BUMIN 3.2 g/dL 03/25/2018 Comp Metabolic Xge447 TP RO 5.5 g/dL 03/25/2018 Comp Metabolic Zem505 GL OB 2.3 g/dL 03/25/2018 Comp Metabolic Uef101 A/ G Ratio 1.4 Ratio 03/25/2018 Comp Metabolic Pub189 Os mo 286 mOsmo 03/25/2018 Pt Qvh1534 PT 29.0 seconds 03/22/2018 Pt Cxw3885 INR 2.7 03/22/2018 Pt Nim9691 Low Intensity - 1.5-2.0 03/22/2018 Pt Zts9733 Mod intensity - 2.0-3.0 03/22/2018 Pt Bbs1736 Hi intensity - 3.0-4.0 03/22/2018 Pt Xcr3369 PT 27.1 seconds 02/25/2018 Pt Pkm4116 INR 2.5 02/25/2018 Pt Bst1553 Low Intensity - 1.5-2.0 02/25/2018 Pt Llp3281 Mod intensity - 2.0-3.0 02/25/2018 Pt Hup0454 Hi intensity - 3.0-4.0 02/25/2018 Pt Beo2993 PT 26.1 seconds 01/26/2018 Pt Kwr1950 INR 2.4 01/26/2018 Pt Jup3308 Low Intensity - 1.5-2.0 01/26/2018 Pt Mci2331 Mod intensity - 2.0-3.0 01/26/2018 Pt Ggh3654 Hi intensity - 3.0-4.0 01/26/2018 Pt Pzw4616 PT 22.8 seconds 12/24/2017 Pt Lye7592 INR 2.0 12/24/2017 Pt Wem4099 Low Intensity - 1.5-2.0 12/24/2017 Pt Sul2011 Mod intensity - 2.0-3.0 12/24/2017 Pt Udq3213 Hi intensity - 3.0-4.0 12/24/2017 Pt Ydd0685 PT 29.4 seconds 11/18/2017 Pt Dad4043 INR 2.8 11/18/2017 Pt Cbz0441 Low Intensity - 1.5-2.0 11/18/2017 Pt Okc3746 Mod intensity - 2.0-3.0 11/18/2017 Pt Nsp8534 Hi intensity - 3.0-4.0 11/18/2017 Pt Boe3007 PT 26.6 seconds 09/13/2017 Pt Crb8983 INR 2.4 09/13/2017 Pt Jxk8507 Low Intensity - 1.5-2.0 09/13/2017 Pt Jkv9621 Mod intensity - 2.0-3.0 09/13/2017 Pt Qiz0609 Hi intensity - 3.0-4.0 09/13/2017 Pt Dve8106 PT 28.2 seconds 08/10/2017 Pt Wtp1166 INR 2.6 08/10/2017 Pt Gnn1433 Low Intensity - 1.5-2.0 08/10/2017 Pt Ahm5893 Mod intensity - 2.0-3.0 08/10/2017 Pt Geu8330 Hi intensity - 3.0-4.0 08/10/2017 Pt Yjo0428 PT 33.9 seconds 07/27/2017 Pt Yiv5686 INR 3.3 07/27/2017 Pt Pzw0784 Low Intensity - 1.5-2.0 07/27/2017 Pt Ntz4565 Mod intensity - 2.0-3.0 07/27/2017 Pt Wqd8068 Hi intensity - 3.0-4.0 07/27/2017 Pt Ztx8875 PT 29.1 seconds 06/29/2017 Pt Oah7668 INR 2.7 06/29/2017 Pt Lpf9341 Low Intensity - 1.5-2.0 06/29/2017 Pt Mtn3830 Mod intensity - 2.0-3.0 06/29/2017 Pt Rer2790 Hi intensity - 3.0-4.0 06/29/2017 Pt Anu6778 PT 30.3 seconds 06/11/2017 Pt Pmd5972 INR 2.9 06/11/2017 Pt Ihh7364 Low Intensity - 1.5-2.0 06/11/2017 Pt Znh1266 Mod intensity - 2.0-3.0 06/11/2017 Pt Nwz6430 Hi intensity - 3.0-4.0 06/11/2017 Pt Ttx0485 PT 39.1 seconds 06/07/2017 Pt Qed5283 INR 3.9 06/07/2017 Pt Faj4702 Low Intensity - 1.5-2.0 06/07/2017 Pt Vjy4828 Mod intensity - 2.0-3.0 06/07/2017 Pt Hax7357 Hi intensity - 3.0-4.0 06/07/2017 Pt Cmu3378 PT 34.2 seconds 05/26/2017 Pt Oky7332 INR 3.3 05/26/2017 Pt Fgq6025 Low Intensity - 1.5-2.0 05/26/2017 Pt Ppe4023 Mod intensity - 2.0-3.0 05/26/2017 Pt Zez1514 Hi intensity - 3.0-4.0 05/26/2017 Comp Metabolic Fut136 NA 138 mEq/L 04/23/2017 Comp Metabolic Use163 K 4.2 mEq/L 04/23/2017 Comp Metabolic Kko597 CL 101 mEq/L 04/23/2017 Comp Metabolic Smu302 CO2 28.0 mEq/L 04/23/2017 Comp Metabolic Vvc399 AN ION GAP 13 04/23/2017 Comp Metabolic Emj591 GL UCOSE 89 mg/dL 04/23/2017 Comp Metabolic Ekw443 Cr eat 1.1 mg/dL 04/23/2017 Comp Metabolic Fit641 eG FR 51 ml/min/1.73m2 04/23 Comp Metabolic Wen495 BUN 26 mg/dL 04/23/2017 Comp Metabolic Cna609 B/ C Ratio 23.9 Ratio 04/23/2017 Comp Metabolic Gzp906 CA LCIUM 9.4 mg/dL 04/23/2017 Comp Metabolic Mjx822 AL K PHOS 95 U/L 04/23/2017 Comp Metabolic Taj202 T(SGOT) 18 U/L 04/23/2017 Comp Metabolic Qkj088 AL T(SGPT) 17 U/L 04/23/2017 Comp Metabolic Ctx528 BI LI T 0.7 mg/dL 04/23/2017 Comp Metabolic Xag479 AL BUMIN 3.2 g/dL 04/23/2017 Comp Metabolic Yla362 TP RO 5.6 g/dL 04/23/2017 Comp Metabolic Cbv257 GL OB 2.4 g/dL 04/23/2017 Comp Metabolic Vtl649 A/ G Ratio 1.3 Ratio 04/23/2017 Comp Metabolic Zra629 Os mo 280 mOsmo 04/23/2017 Pt Sda2108 PT 28.6 seconds 04/23/2017 Pt Dxs5602 INR 2.7 04/23/2017 Pt Mww3532 Low Intensity - 1.5-2.0 04/23/2017 Pt Obe4723 Mod intensity - 2.0-3.0 04/23/2017 Pt Tsd7896 Hi intensity - 3.0-4.0 04/23/2017 Pt Eda0877 PT 24.4 seconds 03/16/2017 Pt Dck3434 INR 2.2 03/16/2017 Pt Oxs7913 Low Intensity - 1.5-2.0 03/16/2017 Pt Cds8104 Mod intensity - 2.0-3.0 03/16/2017 Pt Jan0399 Hi intensity - 3.0-4.0 03/16/2017 Pt Dwp8701 PT 28.2 seconds 02/24/2017 Pt Plp1966 INR 2.6 02/24/2017 Pt Azr7153 Low Intensity - 1.5-2.0 02/24/2017 Pt Ndl1407 Mod intensity - 2.0-3.0 02/24/2017 Pt Xhq5905 Hi intensity - 3.0-4.0 02/24/2017 Pt Eqw2653 PT 26.8 seconds 02/08/2017 Pt Fmh3335 INR 2.5 02/08/2017 Pt Nqa1835 Low Intensity - 1.5-2.0 02/08/2017 Pt Gqi1085 Mod intensity - 2.0-3.0 02/08/2017 Pt Oba3184 Hi intensity - 3.0-4.0 02/08/2017 Lipid Ord30 CHOL 150 mg/dL 01/25/2017 Lipid Ord30 HDL 55.0 mg/dl 01/25/2017 Lipid Ord30 TRIG 66 mg/dL 01/25/2017 Lipid Ord30 LDL 82 mg/dL 01/25/2017 Lipid Ord30 C/HDL 2.7 Ratio 01/25/2017 Pt Ooa8008 PT 29.9 seconds 01/25/2017 Pt Phi7903 INR 2.8 01/25/2017 Pt Vfm7320 Low Intensity - 1.5-2.0 01/25/2017 Pt Izm9889 Mod intensity - 2.0-3.0 01/25/2017 Pt Eyv8378 Hi intensity - 3.0-4.0 01/25/2017 Comp Metabolic Spl880 NA 143 mEq/L 01/25/2017 Comp Metabolic Nbe016 K 3.9 mEq/L 01/25/2017 Comp Metabolic Fch435 CL 108 mEq/L 01/25/2017 Comp Metabolic Ctt752 CO2 23.0 mEq/L 01/25/2017 Comp Metabolic Bat123 AN ION GAP 16 01/25/2017 Comp Metabolic Cmp807 GL UCOSE 80 mg/dL 01/25/2017 Comp Metabolic Ghf231 Cr eat 1.0 mg/dL 01/25/2017 Comp Metabolic Vgy736 eG FR 57 ml/min/1.73m2 01/25 Comp Metabolic Kas769 BUN 25 mg/dL 01/25/2017 Comp Metabolic Wvc132 B/ C Ratio 25.0 Ratio 01/25/2017 Comp Metabolic Rvv035 CA LCIUM 8.5 mg/dL 01/25/2017 Comp Metabolic Prz279 AL K PHOS 81 U/L 01/25/2017 Comp Metabolic Ikc331 T(SGOT) 19 U/L 01/25/2017 Comp Metabolic Ext434 AL T(SGPT) 23 U/L 01/25/2017 Comp Metabolic Dmr359 BI LI T 0.5 mg/dL 01/25/2017 Comp Metabolic Dod332 AL BUMIN 2.9 g/dL 01/25/2017 Comp Metabolic Gkn853 TP RO 5.1 g/dL 01/25/2017 Comp Metabolic Dca044 GL OB 2.2 g/dL 01/25/2017 Comp Metabolic Ynf705 A/ G Ratio 1.3 Ratio 01/25/2017 Comp Metabolic Rde647 Os mo 288 mOsmo 01/25/2017 Cbc With [...] 30.7 pg 01/25/2017 Cbc With Differential Ord2 Dundy% 8.2 % 01/25/2017 Cbc With Differential Ord2 [...] 3.10 K/ul 01/25/2017 Cbc With Differential Ord2 Dundy ABS# 0.8 K/ul 01/25/2017 Cbc With Differential Ord2 Eos ABS# 0.4 K/ul 01/25/2017 Cbc With Differential Ord2 Baso ABS# 0.1 K/ul 01/25/2017 Free T4 Jhz819 FREE T4 2.09 ng/dL 01/25/2017 Tsh Ord6 hTSH II 0.46 uIU/mL 01/25/2017 Pt Poh7483 PT 26.1 seconds 11/26/2016 Pt Ibt1324 INR 2.6 11/26/2016 Pt Jaz9264 Low Intensity - 1.5-2.0 11/26/2016 Pt Xce1804 Mod intensity - 2.0-3.0 11/26/2016 Pt Bvz9614 Hi intensity - 3.0-4.0 11/26/2016 Pt Nft9944 PT 26.2 seconds 10/29/2016 Pt Vtq1902 INR 2.6 10/29/2016 Pt Lpx5660 Low Intensity - 1.5-2.0 10/29/2016 Pt Mei3146 Mod intensity - 2.0-3.0 10/29/2016 Pt Yvw0203 Hi intensity - 3.0-4.0 10/29/2016 Pt Nmc7743 PT 20.8 seconds 10/13/2016 Pt Tsk0478 INR 1.9 10/13/2016 Pt Ldn8140 Low Intensity - 1.5-2.0 10/13/2016 Pt Quw7172 Mod intensity - 2.0-3.0 10/13/2016 Pt Por9494 Hi intensity - 3.0-4.0 10/13/2016 Pt Qji4073 PT 26.5 seconds 10/01/2016 Pt Jcz1022 INR 2.6 10/01/2016 Pt Cuz7339 Low Intensity - 1.5-2.0 10/01/2016 Pt Mkl1684 Mod intensity - 2.0-3.0 10/01/2016 Pt Usv4046 Hi intensity - 3.0-4.0 10/01/2016 Pt Qij8118 PT 24.6 seconds 09/14/2016 Pt Vrz8478 INR 2.4 09/14/2016 Pt Mnf0676 Low Intensity - 1.5-2.0 09/14/2016 Pt Bry5149 Mod intensity - 2.0-3.0 09/14/2016 Pt Rde0529 Hi intensity - 3.0-4.0 09/14/2016 Pt Lri9926 PT 18.0 seconds 09/07/2016 Pt Uys1396 INR 1.6 09/07/2016 Pt Niy4198 Low Intensity - 1.5-2.0 09/07/2016 Pt Xxg9200 Mod intensity - 2.0-3.0 09/07/2016 Pt Bsi6490 Hi intensity - 3.0-4.0 09/07/2016 Pt Avo8170 PT 23.7 seconds 08/12/2016 Pt Zwv2155 INR 2.2 08/12/2016 Pt Pxb2941 Low Intensity - 1.5-2.0 08/12/2016 Pt Eev5160 Mod intensity - 2.0-3.0 08/12/2016 Pt Ppd8563 Hi intensity - 3.0-4.0 08/12/2016 Pt Dxy1174 PT 21.6 seconds 07/27/2016 Pt Cdv4596 INR 2.0 07/27/2016 Pt Ype8746 Low Intensity - 1.5-2.0 07/27/2016 Pt Uti3813 Mod intensity - 2.0-3.0 07/27/2016 Pt Lrw6643 Hi intensity - 3.0-4.0 07/27/2016 Pt Nrx1458 PT 26.0 seconds 06/15/2016 Pt Wpw3884 INR 2.5 06/15/2016 Pt Qjj3883 Low Intensity - 1.5-2.0 06/15/2016 Pt Cxd5938 Mod intensity - 2.0-3.0 06/15/2016 Pt Tok1220 Hi intensity - 3.0-4.0 06/15/2016 Pt Diw1711 PT 18.8 seconds 06/01/2016 Pt Mfb3882 INR 1.7 06/01/2016 Pt Sys7138 Low Intensity - 1.5-2.0 06/01/2016 Pt Qeg9297 Mod intensity - 2.0-3.0 06/01/2016 Pt Pzg1460 Hi intensity - 3.0-4.0 06/01/2016 Pt Kak2892 PT 20.8 seconds 05/12/2016 Pt Jmg2648 INR 1.9 05/12/2016 Pt Npe6006 Low Intensity - 1.5-2.0 05/12/2016 Pt Pjx1686 Mod intensity - 2.0-3.0 05/12/2016 Pt Izw8094 Hi intensity - 3.0-4.0 05/12/2016 Pt Ncu2996 PT 24.5 seconds 04/10/2016 Pt Umy2243 INR 2.4 04/10/2016 Pt Mej1156 Low Intensity - 1.5-2.0 04/10/2016 Pt Iou2282 Mod intensity - 2.0-3.0 04/10/2016 Pt Zvy8306 Hi intensity - 3.0-4.0 04/10/2016 Pt Crw3890 PT 26.4 seconds 03/10/2016 Pt Mlz0751 INR 2.6 03/10/2016 Pt Aga3895 Low Intensity - 1.5-2.0 03/10/2016 Pt Sfu3606 Mod intensity - 2.0-3.0 03/10/2016 Pt Qoh5502 Hi intensity - 3.0-4.0 03/10/2016 Pt Cpo2903 PT 24.9 seconds 03/06/2016 Pt Zcw0237 INR 2.4 03/06/2016 Pt Wvs8885 Low Intensity - 1.5-2.0 03/06/2016 Pt Mhb4232 Mod intensity - 2.0-3.0 03/06/2016 Pt Ruj0601 Hi intensity - 3.0-4.0 03/06/2016 Pt Mqo2397 PT 21.9 seconds 02/25/2016 Pt Vyj5383 INR 2.0 02/25/2016 Pt Xuj5633 Low Intensity - 1.5-2.0 02/25/2016 Pt Wuf6362 Mod intensity - 2.0-3.0 02/25/2016 Pt Izd1089 Hi intensity - 3.0-4.0 02/25/2016 Pt Xdh2664 PT 21.8 seconds 02/21/2016 Pt Lry4396 INR 2.0 02/21/2016 Pt Ukd1115 Low Intensity - 1.5-2.0 02/21/2016 Pt Xjk3912 Mod intensity - 2.0-3.0 02/21/2016 Pt Vaf7428 Hi intensity - 3.0-4.0 02/21/2016 Culture Urine [id number] URI NE CULTURE SEE NOTES 02/20/2016 Culture Urine [id number] Con tinued Results 02/20/2016 Urine Culture Ucult [...] 29.2 pg 02/14/2016 Cbc With Differential Ord2 Dundy% 9.3 % 02/14/2016 Cbc With Differential Ord2 [...] 2.55 K/ul 02/14/2016 Cbc With Differential Ord2 Dundy ABS# 0.8 K/ul 02/14/2016 Cbc With Differential Ord2 Eos ABS# 0.4 K/ul 02/14/2016 Cbc With Differential Ord2 Baso ABS# 0.1 K/ul 02/14/2016 Tsh Ord6 hTSH II 0.80 uIU/mL 02/14/2016 Pt Qhv1796 PT 27.1 seconds 02/14/2016 Pt Bui3729 INR 2.7 02/14/2016 Pt Pmn7230 Low Intensity - 1.5-2.0 02/14/2016 Pt Lcm9681 Mod intensity - 2.0-3.0 02/14/2016 Pt Rph3168 Hi intensity - 3.0-4.0 02/14/2016 Free T4 Thm433 FREE T4 1.87 ng/dL 02/14/2016 Comp Metabolic Gns228 NA 139 mEq/L 02/14/2016 Comp Metabolic Tmm521 K 3.8 mEq/L 02/14/2016 Comp Metabolic Zma271 CL 103 mEq/L 02/14/2016 Comp Metabolic Tax338 CO2 27.0 mEq/L 02/14/2016 Comp Metabolic Wep333 AN ION GAP 13 02/14/2016 Comp Metabolic Ipe099 GL UCOSE 91 mg/dL 02/14/2016 Comp Metabolic Pve750 Cr eat 1.0 mg/dL 02/14/2016 Comp Metabolic Pjh863 eG FR 58 ml/min/1.73m2 02/13 Comp Metabolic Cwl202 BUN 16 mg/dL 02/14/2016 Comp Metabolic Plj610 B/ C Ratio 16.2 Ratio 02/14/2016 Comp Metabolic Ptp503 CA LCIUM 9.0 mg/dL 02/14/2016 Comp Metabolic Nbd904 AL K PHOS 88 U/L 02/14/2016 Comp Metabolic Gnp693 T(SGOT) 17 U/L 02/14/2016 Comp Metabolic Hru714 AL T(SGPT) 12 U/L 02/14/2016 Comp Metabolic Zyg867 BI LI T 0.6 mg/dL 02/14/2016 Comp Metabolic Lpn395 AL BUMIN 3.2 g/dL 02/14/2016 Comp Metabolic Xxe290 TP RO 5.8 g/dL 02/14/2016 Comp Metabolic Xow604 GL OB 2.6 g/dL 02/14/2016 Comp Metabolic Siq899 A/ G Ratio 1.3 Ratio 02/14/2016 Comp Metabolic Hon754 Os mo 278 mOsmo 02/14/2016 Pt Aca0689 PT 34.6 seconds 02/06/2016 Pt Krf1380 INR 3.7 02/06/2016 Pt Gvy8555 Low Intensity - 1.5-2.0 02/06/2016 Pt Qgb8791 Mod intensity - 2.0-3.0 02/06/2016 Pt Eil3779 Hi intensity - 3.0-4.0 02/06/2016 Pt Rht1728 PT 33.3 seconds 01/23/2016 Pt Ywz1659 INR 3.5 01/23/2016 Pt Zux1393 Low Intensity - 1.5-2.0 01/23/2016 Pt Kaj0682 Mod intensity - 2.0-3.0 01/23/2016 Pt Kox7212 Hi intensity - 3.0-4.0 01/23/2016 Pt Jyw5839 PT 30.5 seconds 12/31/2015 Pt Trz2419 INR 3.2 12/31/2015 Pt Zrb2521 Low Intensity - 1.5-2.0 12/31/2015 Pt Kqb7037 Mod intensity - 2.0-3.0 12/31/2015 Pt Ezp4612 Hi intensity - 3.0-4.0 12/31/2015 Pt Gje6343 PT 35.6 seconds 12/25/2015 Pt Thq8483 INR 3.9 12/25/2015 Pt Pxr1124 Low Intensity - 1.5-2.0 12/25/2015 Pt Bby2967 Mod intensity - 2.0-3.0 12/25/2015 Pt Xxh4265 Hi intensity - 3.0-4.0 12/25/2015 Pt Lec4534 PT 30.8 seconds 11/21/2015 Pt Hdz5357 INR 3.2 11/21/2015 Pt Exd6973 Low Intensity - 1.5-2.0 11/21/2015 Pt Yyz7867 Mod intensity - 2.0-3.0 11/21/2015 Pt Fxl4006 Hi intensity - 3.0-4.0 11/21/2015 Uric Acid [...] 30.0 pg 11/20/2015 Cbc With Differential Ord2 Dundy% 8.1 % 11/20/2015 Cbc With Differential Ord2 [...] 2.51 K/ul 11/20/2015 Cbc With Differential Ord2 Dundy ABS# 0.9 K/ul 11/20/2015 Cbc With Differential Ord2 Eos ABS# 0.3 K/ul 11/20/2015 Cbc With Differential Ord2 Baso ABS# 0.0 K/ul 11/20/2015 Comp Metabolic Qyy369 NA 137 mEq/L 10/22/2015 Comp Metabolic Oeh517 K 3.9 mEq/L 10/22/2015 Comp Metabolic Dtv102 CL 100 mEq/L 10/22/2015 Comp Metabolic Lpr794 CO2 31.0 mEq/L 10/22/2015 Comp Metabolic Pjh545 AN ION GAP 10 10/22/2015 Comp Metabolic Jdz885 GL UCOSE 94 mg/dL 10/22/2015 Comp Metabolic Ezk251 Cr eat 1.0 mg/dL 10/22/2015 Comp Metabolic Lad209 eG FR 55 ml/min/1.73m2 10/21 Comp Metabolic Iml664 BUN 19 mg/dL 10/22/2015 Comp Metabolic Owo655 B/ C Ratio 18.3 Ratio 10/22/2015 Comp Metabolic Vmg634 CA LCIUM 8.8 mg/dL 10/22/2015 Comp Metabolic Ntf571 AL K PHOS 83 U/L 10/22/2015 Comp Metabolic Hbh574 T(SGOT) 15 U/L 10/22/2015 Comp Metabolic Sfy993 AL T(SGPT) 13 U/L 10/22/2015 Comp Metabolic Eao510 BI LI T 0.9 mg/dL 10/22/2015 Comp Metabolic Czw861 AL BUMIN 2.8 g/dL 10/22/2015 Comp Metabolic Jxr951 TP RO 5.4 g/dL 10/22/2015 Comp Metabolic Xet161 GL OB 2.6 g/dL 10/22/2015 Comp Metabolic Wej286 A/ G Ratio 1.1 Ratio 10/22/2015 Comp Metabolic Mbf703 Os mo 276 mOsmo 10/22/2015 Bili D Ord93 BILI D 0.1 mg/dL 10/22/2015 Bili D Ord93 BILI I 0.8 mg/dL 10/22/2015 Pt Yrc5114 PT 22.8 seconds 10/22/2015 Pt Pjc8777 INR 2.1 10/22/2015 Pt Njn5328 Low Intensity - 1.5-2.0 10/22/2015 Pt Kic2393 Mod intensity - 2.0-3.0 10/22/2015 Pt Czj5528 Hi intensity - 3.0-4.0 10/22/2015 Pt Ycj0979 PT 28.0 seconds 09/16/2015 Pt Arg5963 INR 2.7 09/16/2015 Pt Jwj4325 Low Intensity - 1.5-2.0 09/16/2015 Pt Xmt3045 Mod intensity - 2.0-3.0 09/16/2015 Pt Ylp3108 Hi intensity - 3.0-4.0 09/16/2015 Tsh Ord6 hTSH II 1.40 uIU/mL 09/16/2015 Free T4 Yoe056 FREE T4 1.73 ng/dL 09/16/2015 Lipid Ord30 CHOL 169 mg/dL 09/16/2015 Lipid Ord30 HDL 66.0 mg/dl 09/16/2015 Lipid Ord30 TRIG 78 mg/dL 09/16/2015 Lipid Ord30 LDL 87 mg/dL 09/16/2015 Lipid Ord30 C/HDL 2.6 Ratio 09/16/2015 Pt Qjt2261 PT 26.6 seconds 08/21/2015 Pt Adb4384 INR 2.6 08/21/2015 Pt Mly8715 Low Intensity - 1.5-2.0 08/21/2015 Pt Ggw8169 Mod intensity - 2.0-3.0 08/21/2015 Pt Dlz9567 Hi intensity - 3.0-4.0 08/21/2015 Comp Metabolic Zqs457 NA 141 mEq/L 08/08/2015 Comp Metabolic Awq089 K 3.3 mEq/L 08/08/2015 Comp Metabolic Kwz476 CL 102 mEq/L 08/08/2015 Comp Metabolic Enc745 CO2 31.0 mEq/L 08/08/2015 Comp Metabolic Gsp720 AN ION GAP 11 08/08/2015 Comp Metabolic Rih248 GL UCOSE 83 mg/dL 08/08/2015 Comp Metabolic Gqd719 Cr eat 1.0 mg/dL 08/08/2015 Comp Metabolic Mbg860 eG FR 55 ml/min/1.73m2 08/08 Comp Metabolic Akc844 BUN 19 mg/dL 08/08/2015 Comp Metabolic Kgs557 B/ C Ratio 18.3 Ratio 08/08/2015 Comp Metabolic Vwz470 CA LCIUM 8.9 mg/dL 08/08/2015 Comp Metabolic Pxx497 AL K PHOS 84 U/L 08/08/2015 Comp Metabolic Vij797 T(SGOT) 20 U/L 08/08/2015 Comp Metabolic Izt077 AL T(SGPT) 18 U/L 08/08/2015 Comp Metabolic Trt177 BI LI T 0.6 mg/dL 08/08/2015 Comp Metabolic Ggo501 AL BUMIN 3.3 g/dL 08/08/2015 Comp Metabolic Jal041 TP RO 5.9 g/dL 08/08/2015 Comp Metabolic Pji070 GL OB 2.6 g/dL 08/08/2015 Comp Metabolic Clr198 A/ G Ratio 1.3 Ratio 08/08/2015 Comp Metabolic Bvt499 Os mo 283 mOsmo 08/08/2015 Cbc With [...] 30.0 pg 08/08/2015 Cbc With Differential Ord2 Dundy% 8.2 % 08/08/2015 Cbc With Differential Ord2 [...] 2.90 K/ul 08/08/2015 Cbc With Differential Ord2 Dundy ABS# 0.9 K/ul 08/08/2015 Cbc With Differential [...] Ord93 BILI I 0.5 mg/dL 08/08/2015 Pt Jdm6413 PT 31.8 seconds 08/05/2015 Pt Nmu4420 INR 3.2 08/05/2015 Pt Dgj9656 Low Intensity - 1.5-2.0 08/05/2015 Pt Xqi8869 Mod intensity - 2.0-3.0 08/05/2015 Pt Ivx7152 Hi intensity - 3.0-4.0 08/05/2015 Pt Rnk1000 PT 27.4 seconds 06/27/2015 Pt Nwz6336 INR 2.6 06/27/2015 Pt Vcw0547 Low Intensity - 1.5-2.0 06/27/2015 Pt Jss0212 Mod intensity - 2.0-3.0 06/27/2015 Pt Vyc3556 Hi intensity - 3.0-4.0 06/27/2015 Tsh Ord6 [...] Ord2 RDW 15.1 % 05/31/2015 Free T4 Uvv510 FREE T4 1.89 ng/dL 05/31/2015 Comp Metabolic Knc303 NA 140 mEq/L 05/31/2015 Comp Metabolic Wdx280 K 3.3 mEq/L 05/31/2015 Comp Metabolic Vzu982 CL 99 mEq/L 05/31/2015 Comp Metabolic Dzn806 CO2 30.0 mEq/L 05/31/2015 Comp Metabolic Tid895 AN ION GAP 14 05/31/2015 Comp Metabolic Gfc046 GL UCOSE 70 mg/dL 05/31/2015 Comp Metabolic Gwl112 Cr eat 1.0 mg/dL 05/31/2015 Comp Metabolic Aeo420 eG FR 55 ml/min/1.73m2 05/31 Comp Metabolic Cyh896 BUN 23 mg/dL 05/31/2015 Comp Metabolic Fbn885 B/ C Ratio 22.1 Ratio 05/31/2015 Comp Metabolic Dem339 CA LCIUM 8.9 mg/dL 05/31/2015 Comp Metabolic Tgo229 AL K PHOS 86 U/L 05/31/2015 Comp Metabolic Wrd669 T(SGOT) 28 U/L 05/31/2015 Comp Metabolic Pyf609 AL T(SGPT) 30 U/L 05/31/2015 Comp Metabolic Hon088 BI LI T 0.4 mg/dL 05/31/2015 Comp Metabolic Cfi301 AL BUMIN 3.3 g/dL 05/31/2015 Comp Metabolic Zne546 TP RO 6.0 g/dL 05/31/2015 Comp Metabolic Vlv755 GL OB 2.7 g/dL 05/31/2015 Comp Metabolic Ecx809 A/ G Ratio 1.2 Ratio 05/31/2015 Comp Metabolic Cyl351 Os mo 282 mOsmo 05/31/2015 Pt Jng7770 PT 23.3 seconds 04/15/2015 Pt Efk5985 INR 2.2 04/15/2015 Pt Eci2872 Low Intensity - 1.5-2.0 04/15/2015 Pt Yyw0333 Mod intensity - 2.0-3.0 04/15/2015 Pt Sai6232 Hi intensity - 3.0-4.0 04/15/2015 Pt Tnv9771 PT 19.5 seconds 04/04/2015 Pt Qop1759 INR 1.7 04/04/2015 Pt Plt8301 Low Intensity - 1.5-2.0 04/04/2015 Pt Sfw1660 Mod intensity - 2.0-3.0 04/04/2015 Pt Kym8050 Hi intensity - 3.0-4.0 04/04/2015 Pt Zcf8408 PT 39.8 seconds 04/01/2015 Pt Geo1305 INR 4.3 04/01/2015 Pt Nra1861 Low Intensity - 1.5-2.0 04/01/2015 Pt Zxm5850 Mod intensity - 2.0-3.0 04/01/2015 Pt Cas0538 Hi intensity - 3.0-4.0 04/01/2015 Metabolic Ord15 [...] Metabolic Ord15 CALCIUM 8.7 mg/dL 02/28/2015 Pt Lpb3510 PT 31.4 seconds 02/28/2015 Pt Lpb8754 INR 3.2 02/28/2015 Pt Yxp4903 Low Intensity - 1.5-2.0 02/28/2015 Pt Iih0585 Mod intensity - 2.0-3.0 02/28/2015 Pt Qap1891 Hi intensity - 3.0-4.0 02/28/2015 Pt Oar8385 PT 23.2 seconds 01/18/2015 Pt Hkg0624 INR 2.1 01/18/2015 Pt Dew4448 Low Intensity - 1.5-2.0 01/18/2015 Pt Fmi6025 Mod intensity - 2.0-3.0 01/18/2015 Pt Qfi2121 Hi intensity - 3.0-4.0 01/18/2015 Pt Tyd3655 PT 18.2 seconds 01/10/2015 Pt Oef0553 INR 1.6 01/10/2015 Pt Zup2062 Low Intensity - 1.5-2.0 01/10/2015 Pt Jzi1288 Mod intensity - 2.0-3.0 01/10/2015 Pt Oos5972 Hi intensity - 3.0-4.0 01/10/2015 Review of [...] rate 08/16/2018 None Full Exam - General 1995 Cardiovascular extremities Overall: no clubbing 08/16/2018 None [...] 10/27/2018 URINALYSIS NONAUTO W /O SCOPE CPT-4: 29899 10/27/2018 ADMIN INFLUENZA VIRU S VAC CPT-4: G0008 03/24/2018 ADMIN PNEUMOCOCCAL V ACCINE SNOMED CT: [id number] CPT-4: G0009 03/24/2018 FLU VACC PRSV FREE I NC ANTIG Formatting Model/CDA Sections, Assigned to/Dorothea Tan CPT-4: 20747Wcjcqcq 03/24/2018 Pneumococcal Polysac charide Vaccine, 23-Valent, Ad CPT-4: 72258 03/24/2018 TRIAMCINOLONE ACET I [place] NOS CPT-4: J3301 06/15/2017 THER/PROPH/DIAG INJ SC/IM CPT-4: 31499 06/15/2017 ADMIN PNEUMOCOCCAL V ACCINE SNOMED CT: [id number] CPT-4: G0009 03/16/2017 ADMIN INFLUENZA VIRU S VAC CPT-4: G0008 03/16/2017 FLU VAC NO PRSV 4 VA L 3 YRS+ CPT-4: 06519 03/16/2017 PNEUMOCOCCAL VACC [address]: [id number] CPT-4: 48658 03/16/2017 URINALYSIS NONAUTO W /O SCOPE CPT-4: 19765 08/26/2016 THER/PROPH/DIAG INJ SC/IM CPT-4: 06970 07/22/2016 TRIAMCINOLONE ACET I [place] NOS CPT-4: J3301 07/22/2016 ROCEPHIN, PER 250 MG CPT-4: J0696 07/22/2016 TRIAMCINOLONE ACET I [place] NOS CPT-4: J3301 02/05/2015 Vital Signs Date Vital 10/27/2018 Blood Pressure 1: 120/74 Code: 8480-6 BMI: 32.4 Code: 55043-3 Heart Rate 1: 65 bpm Height: 5'7" SpO2: 97% Weight: 207 lbs 09/27/2018 Blood Pressure 1: 128/74 Code: 8480-6 BMI: 32.4 Code: 86540-2 Heart Rate 1: 92 bpm Height: 5'7" SpO2: 97% Weight: 207 lbs 08/16/2018 Blood Pressure 1: 104/66 Code: 8480-6 BMI: 32.3 Code: 94090-4 Heart Rate 1: 94 bpm Height: 5'7" SpO2: 96% Weight: 206 lbs 07/11/2018 Blood Pressure 1: 102/68 Code: 8480-6 BMI: 34.5 Code: 73868-5 Heart Rate 1: 101 bpm Height: 5'7" SpO2: 98% Weight: 220 lbs 03/24/2018 Blood Pressure 1: 130/72 Code: 8480-6 BMI: 33.4 Code: 72833-7 Heart Rate 1: 82 bpm Height: 5'7" SpO2: 93% Weight: 213 lbs 11/18/2017 Blood Pressure 1: 128/70 Code: 8480-6 BMI: 33.6 Code: 13395-7 Heart Rate 1: 98 bpm Height: 5'7" SpO2: 97% Weight: 214 lbs 8 oz 09/30/2017 Blood Pressure 1: 100/50 Code: 8480-6 BMI: 34.0 Code: 41812-1 Heart Rate 1: 66 bpm Height: 5'7" SpO2: 96% Weight: 217 lbs 08/17/2017 Blood Pressure 1: 104/60 Code: 8480-6 BMI: 33.7 Code: 69920-9 Heart Rate 1: 99 bpm Height: 5'7" SpO2: 97% Weight: 215 lbs 06/15/2017 Blood Pressure 1: 120/64 Code: 8480-6 BMI: 33.5 Code: 30628-6 Heart Rate 1: 91 bpm Height: 5'7" SpO2: 94% Weight: 214 lbs 04/01/2017 Blood Pressure 1: 110/68 Code: 8480-6 BMI: 154.4 Code: 05126-2 Heart Rate 1: 66 bpm Height: 2'7" SpO2: 95% Weight: 211 lbs 03/16/2017 Blood Pressure 1: 130/72 Code: 8480-6 BMI: 33.0 Code: 21939-9 Heart Rate 1: 95 bpm Height: 5'7" SpO2: 97% Weight: 211 lbs 02/09/2017 Blood Pressure 1: 120/70 Code: 8480-6 BMI: 32.9 Code: 67958-4 Heart Rate 1: 78 bpm Height: 5'7" SpO2: 96% Weight: 210 lbs 10/13/2016 Blood Pressure 1: 118/76 Code: 8480-6 BMI: 32.6 Code: 70012-0 Heart Rate 1: 97 bpm Height: 5'7" SpO2: 98% Weight: 208 lbs 07/31/2016 Blood Pressure 1: 110/64 Code: 8480-6 BMI: 32.1 Code: 01328-6 Heart Rate 1: 79 bpm Height: 5'7" SpO2: 94% Weight: 205 lbs 07/22/2016 Blood Pressure 1: 108/74 Code: 8480-6 BMI: 32.1 Code: 29963-1 Heart Rate 1: 71 bpm Height: 5'7" SpO2: 97% Temperature: 36.9 (C ) / 98.4 (F) Weight: 205 lbs 05/01/2016 Blood Pressure 1: 120/72 Code: 8480-6 BMI: 32.7 Code: 77015-8 Heart Rate 1: 75 bpm Height: 5'7" SpO2: 94% Weight: 209 lbs 04/06/2016 Blood Pressure 1: 106/62 Code: 8480-6 BMI: 32.7 Code: 71449-5 Heart Rate 1: 83 bpm Height: 5'7" SpO2: 97% Weight: 209 lbs 03/06/2016 Blood Pressure 1: 112/68 Code: 8480-6 BMI: 32.7 Code: 07530-6 Heart Rate 1: 90 bpm Height: 5'7" SpO2: 97% Weight: 209 lbs 03/03/2016 Blood Pressure 1: 120/62 Code: 8480-6 BMI: 32.7 Code: 79564-8 Heart Rate 1: 92 bpm Height: 5'7" SpO2: 98% Weight: 209 lbs 02/07/2016 Blood Pressure 1: 110/64 Code: 8480-6 BMI: 32.7 Code: 37411-8 Heart Rate 1: 87 bpm Height: 5'7" SpO2: 97% Weight: 209 lbs 12/13/2015 Blood Pressure 1: 110/64 Code: 8480-6 BMI: 33.5 Code: 04058-7 Heart Rate 1: 90 bpm Height: 5'7" SpO2: 97% Weight: 214 lbs 12/03/2015 Blood Pressure 1: 132/76 Code: 8480-6 BMI: 33.4 Code: 63954-2 Heart Rate 1: 82 bpm Height: 5'7" SpO2: 99% Weight: 213 lbs 11/20/2015 Blood Pressure 1: 108/68 Code: 8480-6 BMI: 32.4 Code: 16648-8 Heart Rate 1: 77 bpm Height: 5'7" SpO2: 97% Weight: 207 lbs 09/17/2015 Blood Pressure 1: 122/76 Code: 8480-6 BMI: 33.0 Code: 55009-3 Heart Rate 1: 91 bpm Height: 5'7" SpO2: 97% Weight: 211 lbs 05/31/2015 Blood Pressure 1: 128/82 Code: 8480-6 BMI: 33.4 Code: 69568-9 Heart Rate 1: 98 bpm Height: 5'7" SpO2: 99% Weight: 213 lbs 02/05/2015 Blood Pressure 1: 128/80 Code: 8480-6 BMI: 32.6 Code: 50190-4 Heart Rate 1: 86 bpm Height: 5'7" SpO2: 97% Weight: 208 lbs 11/20/2014 Blood Pressure 1: 128/90 Code: 8480-6 BMI: 30.9 Code: 87954-1 Heart Rate 1: 94 bpm Height: 5'7" [...] Findings Denies fever 05/31/2015 None hypothyroid 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 02/05/2015 None hypothyroid Pertinent Findings coarse [...] Denies extremity weakness 11/20/2014 None hypothyroid 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 P ATIENT, LEVEL III Diagnosis: Urinary tract infection, site not specified[ICD10: N39.0] Brielle Pisano MD, [facility] CPT-4: 83251 10/27/2018 ([id number]) [id number] EST. 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 P ATIENT, LEVEL IV Diagnosis: Essential (primary) hypertension[ICD10: I10] Diagnosis: Atrophy of thyroid (acquired)[ICD10: E03.4] Diagnosis: Sebaceous cyst[ICD10: L72.3] Diagnosis: Chronic atrial fibrillation[ICD10: I48.2] Diagnosis: shelter (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[ICD10: Z79.01] Valerie Pisano MD, [facility] CPT-4: 79004 08/16/2018 ([id number]) 44684 EST. P ATIENT, LEVEL IV Diagnosis: Atrophy of thyroid (acquired)[ICD10: E03.4] Diagnosis: Essential (primary) hypertension[ICD10: I10] Diagnosis: Other fatigue[ICD10: R53.83] Diagnosis: Localized edema[ICD10: R60.0] Valerie Pisano MD, [facility] CPT-4: 91243 07/11/2018 ([id number]) 05865 EST. P ATIENT, LEVEL IV Diagnosis: Essential (primary) hypertension[ICD10: I10] Diagnosis: Atrophy of thyroid (acquired)[ICD10: E03.4] Diagnosis: Chronic atrial fibrillation[ICD10: I48.2] Valerie Pisano MD, [facility] CPT-4: 00024 03/24/2018 ([id number]) 26279 EST. P ATIENT, LEVEL IV Diagnosis: Essential (primary) hypertension[ICD10: I10] Diagnosis: Atrophy of thyroid (acquired)[ICD10: E03.4] Diagnosis: Chronic atrial fibrillation[ICD10: I48.2] Valerie Pisano MD, [facility] CPT-4: 08213 11/18/2017 [id number] EST. PATIENT, LEVEL IV Diagnosis: Localized edema[ICD10: R60.0] Roxie Pisano MD, [facility] CPT-4: 07348 09/30/2017 ([id number]) 05724 EST. P ATIENT, LEVEL III Diagnosis: Essential (primary) hypertension[ICD10: I10] Valerie Pisano MD, [facility] CPT-4: 09865 08/17/2017 ([id number]) 52041 EST. P ATIENT, LEVEL IV Diagnosis: Essential (primary) hypertension[ICD10: I10] Diagnosis: Atrophy of thyroid (acquired)[ICD10: E03.4] Diagnosis: Chronic atrial fibrillation[ICD10: I48.2] Diagnosis: Cervicalgia[ICD10: M54.2] Diagnosis: Other muscle spasm[ICD10: M62.838] Valerie Pisano MD, [facility] CPT- 4: 66404 06/15/2017 [id number] EST. PATIENT, LEVEL III Diagnosis: Laceration without foreign body of other finger without damage to nail, initial encounter[ICD10: S61.218A] Roxie Pisano MD, [facility] CPT-4: 78485 04/01/2017 ([id number]) 87130 EST. P ATIENT, LEVEL IV Diagnosis: Chronic atrial fibrillation[ICD10: I48.2] Diagnosis: shelter (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[ICD10: Z79.01] Diagnosis: Encounter for immunization[ICD10: Z23] Diagnosis: Atrophy of thyroid (acquired)[ICD10: E03.4] Valerie Pisano MD, [facility] CPT-4: 18569 03/16/2017 ([id number]) 61408 EST. P ATIENT, LEVEL IV Diagnosis: Chronic atrial fibrillation[ICD10: I48.2] Diagnosis: Essential (primary) hypertension[ICD10: I10] Diagnosis: Other fatigue[ICD10: R53.83] Diagnosis: shelter (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[ICD10: Z79.01] Diagnosis: Atrophy of thyroid (acquired)[ICD10: E03.4] Valerie Pisano MD, [facility] CPT-4: 50984 02/09/2017 ([id number]) 81017 EST. P ATIENT, LEVEL IV Diagnosis: Essential (primary) hypertension[ICD10: I10] Diagnosis: Chronic atrial fibrillation[ICD10: I48.2] Diagnosis: Tinea corporis[ICD10: B35.4] Diagnosis: shelter (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[ICD10: Z79.01] Diagnosis: Other skin changes[ICD10: R23.8] Valerie Pisano MD, [facility] CPT-4: 53096 10/13/2016 04540 EST. PATIENT, LEVEL III Diagnosis: Other acute sinusitis[ICD10: J01.80] Diagnosis: Other allergic rhinitis[ICD10: J30.89] Roxie Pisano MD, [facility] CPT-4: 88729 07/31/2016 ([id number]) 85786 EST. P ATIENT, LEVEL III Diagnosis: Acute recurrent maxillary sinusitis[ICD10: J01.01] Valerie Pisano MD, [facility] CPT-4: 60894 07/22/2016 57003 EST. PATIENT, LEVEL IV Diagnosis: Essential (primary) hypertension[ICD10: I10] Diagnosis: Other allergic rhinitis[ICD10: J30.89] Diagnosis: Localized edema[ICD10: R60.0] Roxie Pisano MD, [facility] CPT-4: 21427 05/01/2016 43962 EST. PATIENT, LEVEL III Diagnosis: Cellulitis of left lower limb[ICD10: L03.116] Diagnosis: Localized edema[ICD10: R60.0] Roxie Pisano MD, [facility] CPT-4: 07709 04/06/2016 ([id number]) Miscellaneou s no charge Diagnosis: Cellulitis of left lower limb[ICD10: L03.116] Diagnosis: Localized edema[ICD10: R60.0] Roxie Pisano MD, [facility] CPT-4: 14252 03/10/2016 ([id number]) Miscellaneou s no charge Diagnosis: Cellulitis of left lower limb[ICD10: L03.116] Roxie Pisano MD, [facility] CPT-4: 81287 03/06/2016 54937 EST. PATIENT, LEVEL IV Diagnosis: Cellulitis of left lower limb[ICD10: L03.116] Diagnosis: Localized edema[ICD10: R60.0] Roxie Pisano MD, [facility] CPT-4: 59188 03/03/2016 ([id number]) 38962 EST. P ATIENT, LEVEL III Diagnosis: Essential (primary) hypertension[ICD10: I10] Diagnosis: shelter (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[ICD10: Z79.01] Diagnosis: Chronic atrial fibrillation[ICD10: I48.2] Brielle Pisano MD, [facility] CPT-4: 93548 02/07/2016 ([id number]) 83155 EST. P ATIENT, LEVEL III Diagnosis: Iliotibial band syndrome, right leg[ICD10: M76.31] Diagnosis: Localized edema[ICD10: R60.0] Brielle Pisano MD, [facility] CPT- 4: 04599 12/13/2015 ([id number]) 23676 EST. P ATIENT, LEVEL III Diagnosis: Localized edema[ICD10: R60.0] Diagnosis: Essential (primary) hypertension[ICD10: I10] Brielle Pisano MD, [facility] CPT-4: 91321 12/03/2015 ([id number]) 58229 EST. P ATIENT, LEVEL IV Diagnosis: shelter (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[ICD10: Z79.01] Diagnosis: Other skin changes[ICD10: R23.8] Diagnosis: Localized edema[ICD10: R60.0] Diagnosis: Pain in right foot[ICD10: M79.671] Valerie Pisano MD, [facility] CPT- 4: 47687 11/20/2015 15377 EST. 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 [facility] Diagnosis: ALLERGIC RHINITIS[ICD9: 477.9] Diagnosis: ESSENTIAL HYPERTENSION[ICD9: 401.9] [facility] CPT-4: 58638 02/05/2015 ([id number]) OFFICE [facility] - LEVEL 4 Diagnosis: ESSENTIAL HYPERTENSION[ICD9: 401.9] Diagnosis: HYPOTHYROIDISM[ICD9: 244.9] Diagnosis: ACTINIC KERATOSIS[ICD9: 702.0] [facility] CPT-4: 76377 11/20/2014 Plan of Care Planned Activity Notes C odes Status Date Visit Plan: UTI - pt with positive urinalysis - culture sent if appropriate. Antibiotic electronically prescribed to pt's pharmacy of choice. Pt to call if symptoms do not improve. 10/27/2018 Appointment: Brielle Cavazos WPtel: [address] [place], [place] [phone] (10 min) Simple 10/27/2018 Patient Education: Patient [...] Dr. Hernandez. 09/27/2018 Appointment: Valerie Pisano WPtel: [address] [place], [place] [id number] (15 min) Moderate 09/27/2018 Patient Education: Patient [...] 4mg daily. 08/16/2018 Appointment: Valerie Pisano WPtel: [address] [place], [place] [address] (15 min) Moderate 08/16/2018 Patient Education: Patient Medication Summary Completed 08/16/2018 Patient Education: Hypertension Completed 08/16/2018 Patient Education: Patient Medication Summary Completed 07/29/2018 Appointment: Brielle Cavazos WPtel: [address] [place] [phone] (15 min) Moderate 07/12/2018 Visit Plan: Hypertension [...] twice daily. 07/11/2018 Appointment: Valerie Pisano WPtel: [facility] (15 min) Moderate 07/11/2018 Patient Education: Patient [...] given today. 03/24/2018 Appointment: Valerie Pisano WPtel: [facility]5 [facility] (15 min) Moderate 03/24/2018 Patient Education: [...] of control. 11/18/2017 Appointment: Valerie Pisano WPtel: [address] [place], [place] [phone] (15 min) Moderate 11/18/2017 Patient Education: Patient Medication Summary Completed 11/18/2017 Referral: Via [facility] WPtel: 1 [facility]66[facility] Pt notified at appointment Appointment Confirmed [...] Unna Boots 09/30/2017 Appointment: Roxie Cazares WPtel: [address] [place], [place] [address] (30 min) Complex 09/30/2017 Patient Education: Patient Medication Summary Completed 09/30/2017 Care Plan: Referral Order SNOMED-CT : [id number] Pending 09/30/2017 Visit Plan: Hypertension - well [...] time. 08/17/2017 Appointment: Valerie Pisano WPtel: [phone] [facility] [place] (15 min) Moderate 08/17/2017 Patient Education: [...] muscles. allergies - kenalog 40mg im bristol [employer] squibb - lot # [id number] expires september 2018 06/15/2017 Visit Plan: Hypertension [...] muscles. 06/15/2017 Appointment: Valerie Pisano WPtel: [phone] [facility] [place] (15 min) Moderate 06/15/2017 Patient Education: Patient Medication Summary Completed 06/15/2017 Care Plan: Referral Order SNOMED-CT : [id number] Pending 06/15/2017 Appointment: Nurse Visit 04/05/2017 Appointment: [...] booster. 04/01/2017 Appointment: Rox[facility] Cazares [facility]Ptel: [phone] [place] (15 min) Moderate 04/01/2017 Patient Education: [...] shot today 03/16/2017 Appointment: Valerie Pisano WPtel: [phone] [facility] [place] (15 min) Moderate 03/16/2017 Patient Education: [...] allergy spray. 02/09/2017 Appointment: Valerie Pisano WPtel: [address] [place], [place] [address] (15 min) Moderate 02/09/2017 Patient Education: Patient [...] nystatin 10/13/2016 Appointment: Valerie Pisano WPtel: [phone] [facility] (15 min) Moderate 10/13/2016 Patient Education: Patient Medication Summary Completed 10/13/2016 Patient Education: Obesity Completed 10/13/2016 Patient Education: Hypertension Completed 10/13/2016 Care Plan: Urine Culture Pending 08/31/2016 Appointment: Roxie Cazares WPtel: [phone] [facility] Lab Draw 08/27/2016 Appointment: Nurse Visit [...] spray. 07/31/2016 Appointment: Brielle Cavazos WPtel: [phone] [phone] [place] (30 min) Complex 07/31/2016 Patient Education: Patient Medication Summary Completed 07/31/2016 Patient Education: Obesity Completed 07/31/2016 Visit Plan: Sinusitis - Pt has acut e infection - pain in face, maxillary region, Pt informed to use decongestant, RX given to patient, sinus rinses also recommended. Call if symptoms do not show improvement. 07/22/2016 Appointment: Valerie Pisano WPtel: [phone] [facility] (15 min) Moderate 07/22/2016 Patient Education: Patient [...] edema. 05/01/2016 Appointment: Brielle Cavazos WPtel: [phone] [phone] (30 min) Complex 05/01/2016 Patient Education: [...] edema. 04/06/2016 Appointment: Roxie Cazares WPtel: [phone] (30 min) Complex 04/06/2016 Patient Education: Patient Medication Summary Completed 04/06/2016 Patient Education: Obesity Completed 04/06/2016 Visit Plan: left foot - improved - pt finished with antibiotics - continue to monitor - notify clinic with any concerns. Repeat INR today. 03/10/2016 Appointment: Brielle Cavazos WPtel: [facility]5 [phone] (30 min) Complex 03/10/2016 Patient Education: Patient Medication Summary Completed 03/10/2016 Visit Plan: Cellulitis - continue w ith oral antibiotics as previously directed, return to clinic as previously directed, call for acute change in symptoms, worsening redness, warmth, discharge. 03/06/2016 Appointment: Brielle Cavazos WPtel: [facility]3 [phone] [place] [address] (15 min) Moderate 03/06/2016 Patient Education: Patient Medication Summary Completed 03/06/2016 Patient Education: Obesity Completed 03/06/2016 Visit Plan: Cellulitis - continue w ith oral antibiotics as previously directed, return to clinic as previously directed, call for acute change in symptoms, worsening redness, warmth, discharge. 03/03/2016 Appointment: Brielle Cavazos WPtel: [facility]8 [phone] (15 min) Moderate 03/03/2016 Patient Education: [...] and 3.5. 02/07/2016 Appointment: Brielle Cavazos WPtel: [phone] [phone] (30 min) Complex 02/07/2016 Patient Education: Patient Medication Summary Completed 02/07/2016 Patient Education: Obesity Completed 02/07/2016 Patient Education: Hypertension Completed 02/07/2016 Appointment: Brielle Cavazos WPtel: [facility]5 [phone] [place] [address] (30 min) Complex 02/04/2016 Visit Plan: Iliotibial [...] peripheral edema. 12/13/2015 Appointment: Brielle Cavazos WPtel: [facility]5 [phone] [place] [address] (15 min) Moderate 12/13/2015 Patient Education: Patient [...] at home. 12/03/2015 Appointment: Brielle Cavazos WPtel: [facility]5 [phone] (30 min) Complex 12/03/2015 Patient Education: Patient [...] Hypertension Completed 02/05/2015 Appointment: Valerie Pisano WPtel: [facility] (15 min) Moderate 01/29/2015 Visit Plan: Hypertension [...] control. 11/20/2014 Appointment: Valerie Pisano WPtel: [phone] [facility] [place] ([place]) New Patient 11/20/2014 Patient Education: Patient Medication Summary Completed 11/20/2014 Patient Education: Hypertension Completed 11/20/2014 Patient Education: Patient Medication Summary Completed 10/19/2014 Referral: [facility] WPtel: Referral Appointment Requested Referral: [facility]: [facility] [place] Referral Appointment Confirmed Instructions Comment 1 pill wed/wed/wed, 1/2 pill //sat/sun take [...] in the nasal steroid allergy spray. . Sinusitis - Pt has acute infection [...] im bristol [employer] squibb - lot # [id number] expires september 2018 . Edema - pt has bee n advised to elevate legs to prevent dependent edema, compression has been recommended to help to naturally decrease peripheral edema. Diuretic use has been discussed and pt has been instructed in appropriate use of such medication as necessary to further attempt to reduce peripheral edema. Will refer to wound care for possible Unna Boots Increase Lasix to tw ice a day [...] to further attempt to reduce peripheral edema. Check your PT INR on Wednesday or [...] with supportive care at this time. . Hypertension - wel l controlled - [...] the office. get blood work one w [place] before next appt - fasting labs Decrease [...] change in blood pressure readings at home. ROCEPHIN INJECTION T SAMIR . UTI - [...]
--- OUTSIDE RECORDS SUMMARY | 2019-09-12 11:15 | XMS REPORT | CCD ---
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 Role Phone PP Unavailable CCM Unavailable Summary Purpose Interface Exchange Insurance Providers Payer name Policy type / Coverage type Covered constitution party ID Effective Begin Date Effective End Date WPS Medicare Part B Medicare Part B [id number] 2018 Unknown [employer] Medicare Part B [id number] Unknown Family history Sister Diagnosis Age At Onset defect Unknown Breast cancer Unknown Daughter Diagnosis Age At Onset Breast cancer Unknown Mother Diagnosis Age At Onset No Family Disease Entered N/A Social History Social History Element Codes Description Effective Dates Marital status Unknown M [address] 11/20/2014 Number of children Unknown 6 11/20/2014 Employment Unknown Retir ed 11/20/[address]: 7824336 Quit over 10 years ago 1963 11/20/2014 [...] ICD-9: 401.9 ICD-10: I10 Active 04/30/2016 Unknown 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 ICD-9: V58.61 ICD-10: [...] Unknown HYPOTHYROIDISM ICD-9: 244.9 Active 11/19/2014 Unknown retirement current us 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 therapy ICD-9: V58.61 Active 10/19/2014 Unknown Problems Condition Codes Effectiv e Dates Condition Status Urinary tract infect ion, site not specified ICD-9: 599.0 ICD-10: N39.0 02/13/2016 Active Atrophy of thyroid ( acquired) ICD-9: 244.8 ICD-10: E03.4 02/09/2017 Active Chronic atrial fibri llation ICD-9: 427.31 ICD-10: I48.2 02/06/2016 Active Essential (primary) hypertension ICD-9: 401.9 ICD-10: I10 04/30/2016 Active retirement (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 ICD-9: V58.61 ICD-10: [...] 11/19/2014 Active HYPOTHYROIDISM ICD-9: 244.9 11/19/2014 Active retirement current us 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 therapy ICD-9: V58.61 10/19/2014 Active Medications Medication Codes Instruc tions Start Date Stop Date Fill Instructions Keflex 500 mg capsule RxNorm: 097757 1 Capsule(s) PO TID 10/27/2018 11/02/2018 Active ceftriaxone 500 mg s olution for injection RxNorm: 9707132 Inj 10/27/2018 10/27/2018 Inactive Coumadin 4 mg tablet RxNorm: 851421 1 Tablet(s) PO daily 08/16/2018 08/10/2019 Active this is an update to her RX - she will l et you know when she needs refill triamcinolone aceton sreekanth 0.025 % topical cream RxNorm: 9343202 1 Application TOP QI D 08/16/2018 No Stop Date Active levothyroxine 125 mc g tablet RxNorm: 992197 TAKE ONE TABLET BY [facility] DAILY ON WEDNESDAY, WED, AND WEDNESDAY, AND 1/2 TABLET ON , , WED AND WEDNESDAY. TAKE ON AN EMPTY STOMACH 08/04/2018 04/30/2019 Active meclizine 25 mg tablet RxNorm: 963631 1 Tablet(s) PO TID as needed Dizziness 07/22/2018 No Stop Date Active meclizine 25 mg tablet RxNorm: 781392 1 Tablet(s) PO TID as needed Dizziness 07/19/2018 07/21/2018 In active furosemide 40 mg tablet RxNorm: 834910 1 Tablet(s) BID take 1.5 tabs twice a da y x 7 days then 1 pill daily thereafter 07/11/2018 02/05/2019 Active Coumadin 4 mg tablet RxNorm: 429609 1 Tablet(s) PO daily except 1.5 pills on WEDNESDAY AND Wednesday07/11/2018 08/15/2018 Inactive this is an update to her RX - she will let you know when she needs refill warfarin 5 mg tablet RxNorm: 064608 Tablet(s) TAKE ONE TABLET BY MOUTH DAILY EXCEPT / TAKE 4 MG 04/06/2018 08/22/2019 Active diltiazem 60 mg tablet RxNorm: 411866 1/2 Tablet(s) PO QID 03/24/2018 No Stop Date Active levothyroxine 125 mc g tablet RxNorm: 580531 TAKE ONE TABLET BY [facility] DAILY ON WEDNESDAY, WED, AND WEDNESDAY, AND 1/2 TABLET ON , , WED AND WEDNESDAY. TAKE ON AN EMPTY STOMACH 02/02/2018 07/31/2018 Inactive Coumadin 4 mg tablet RxNorm: 300532 TAKE ONE TABLET BY MOUTH DAILY ON AND Wednesday10/14/2017 07/10/2018 Inactive nystatin 100,000 uni t/gram topical cream RxNorm: 272073 1 Application TOP TID 08/17/2017 No Stop Date Active Voltaren 1 % topical gel RxNorm: 370617 2 Gram(s) TOP TID luiz ly to shoulder and neck 08/17/2017 No Stop Date Active triamcinolone aceton sreekanth 0.025 % topical cream RxNorm: 9284469 1 Application TOP BI D 08/17/2017 08/15/2018 In active levothyroxine 125 mc g tablet RxNorm: 112756 1 Tablet(s) UD 1 pill wed/wed/wed, 1/2 pill //wed/wed take ON AN EMPTY STOMACH 08/05/2017 02/01/2018 Inactive Coumadin 4 mg tablet RxNorm: 452616 1 Tablet(s) PO Wed/07/29/2017 10/13/2017 Inactive warfarin 5 mg tablet RxNorm: 004825 TAKE 1 AND 1/2 TABLETS BY MOUTH ON AND WEDNESDAY. TAKE ONLY 1 TABLET BY MOUTH ALL OTHER DAYS OF THE WEEK 07/12/2017 04/05/2018 In active furosemide 40 mg tablet RxNorm: 222384 Tablet(s) BID TAKE ONE TABLET BY MOUTH D AILY 06/15/2017 07/10/2018 Inactive Voltaren 1 % topical gel RxNorm: 261872 2 Gram(s) TOP TID luiz ly to shoulder and neck 06/15/2017 08/16/2017 Inactive Keflex 500 mg capsule RxNorm: 120192 1 Capsule(s) PO TID 04/01/2017 04/07/2017 Inactive furosemide 40 mg tablet RxNorm: 935914 TAKE ONE TABLET BY MOUTH DAILY 03/18/2017 06/14/2017 In active Claritin-D 12 Hour 5 mg-120 mg tablet,extended release RxNorm: 7534720 1 Tablet(s) PO BID 03/16/2017 05/14/2017 Inactive Lipitor 20 mg tablet RxNorm: 297077 1 Tablet(s) PO daily 02/09/2017 03/10/2017 Inactive lisinopril 2.5 mg ta blet RxNorm: 514826 1 Tablet(s) PO daily 02/09/2017 03/10/2017 Inactive Nasonex 50 mcg/actua tion [place] RxNorm: 7653032 1 [place] NASAL BID 02/09/2017 09/06/2017 Inactive levothyroxine 125 mc g tablet RxNorm: 221565 1 Tablet(s) UD 1 pill wed/wed/wed, 1/2 pill //wed/sun take ON AN EMPTY STOMACH 02/09/2017 08/04/2017 Inactive fluorouracil 5 % top ical cream RxNorm: 665795 1 Application TOP BID 02/09/2017 02/18/2017 Inactive potassium chloride E R 20 mEq tablet,extended release RxNorm: 779959 Tablet(s) TAKE ONE TABLET BY MOUTH DAILY 02/08/2017 02/02/2018 Inactive warfarin 5 mg tablet RxNorm: 671325 TAKE 1 AND 1/2 TABLETS BY MOUTH ON AND WEDNESDAY. TAKE ONLY 1 TABLET BY MOUTH ALL OTHER DAYS OF THE WEEK 12/14/2016 05/30/2017 In active potassium chloride E R 20 mEq tablet,extended release RxNorm: 152758 TAKE ONE TABLET BY MOUTH DAILY 10/29/2016 01/26/2017 Inactive warfarin 5 mg tablet RxNorm: 037443 TAKE 1 AND 1/2 TABLETS BY MOUTH ON AND WEDNESDAY. TAKE ONLY 1 TABLET BY MOUTH ALL OTHER DAYS OF THE WEEK 10/27/2016 12/13/2016 In active nystatin 100,000 uni t/gram topical cream RxNorm: 382540 1 Application TOP TID 10/13/2016 08/16/2017 In active nitrofurantoin 50 mg capsule RxNorm: 124588 1 Capsule(s) PO BID 09/04/2016 09/03/2016 Inactive nitrofurantoin macro crystal 50 mg capsule RxNorm: 857539 1 Capsule(s) PO BID 09/04/2016 09/10/2016 In active Cipro 500 mg tablet RxNorm: 373368 1 Tablet(s) PO BID 08/26/2016 10/12/2016 Inactive Zyrtec 10 mg tablet RxNorm: 4602541 1 Tablet(s) PO daily 07/31/2016 08/29/2016 Inactive prednisone 20 mg tablet RxNorm: 290000 2 Tablet(s) PO daily 07/31/2016 08/02/2016 Inactive Kenalog 40 mg/mL zohra pension for injection RxNorm: 2759561 Milliliter(s) Inj 07/22/2016 07/22/2016 In active ceftriaxone 500 mg s olution for injection RxNorm: 9598562 Inj 07/22/2016 07/22/2016 Inactive Flonase Allergy Reli ef 50 mcg/actuation nasal spray,suspension RxNorm: 7576219 1 [place] NASAL BID 07/22/2016 08/20/2016 Inactive azithromycin 250 mg tablet RxNorm: 554305 2 Tablet(s) PO on day #1, then 1 pill daily x 4 days 07/22/2016 10/12/2016 Inactive warfarin 5 mg tablet RxNorm: 231897 TAKE 1 AND 1/2 TABLETS BY MOUTH ON AND WEDNESDAY. TAKE ONLY 1 TABLET BY MOUTH ALL OTHER DAYS OF THE WEEK 07/09/2016 09/30/2016 In active levothyroxine 125 mc g tablet RxNorm: 108191 Tablet(s) TAKE ONE TA BLET BY MOUTH DAILY ON AN EMPTY STOMACH 06/23/2016 02/08/2017 Inactive levothyroxine 125 mc g tablet RxNorm: 606126 TAKE ONE TABLET BY [facility] DAILY ON AN EMPTY STOMACH 06/23/2016 06/22/2016 Inactive levothyroxine 125 mc g tablet RxNorm: 341310 TAKE ONE TABLET BY [facility] DAILY ON AN EMPTY STOMACH 06/23/2016 08/04/2017 Inactive cetirizine 10 mg tablet RxNorm: 4513342 TAKE ONE TABLET BY MOUTH DAILY 06/16/2016 10/13/2016 In active furosemide 40 mg tablet RxNorm: 158808 Tablet(s) TAKE ONE TABLET BY MOUTH DAILY 06/05/2016 12/01/2016 In active cetirizine 10 mg tablet RxNorm: 6169265 1 Tablet(s) PO daily 05/01/2016 05/30/2016 Inactive Levaquin 250 mg tablet RxNorm: 828948 Tablet(s) PO 2 pills day one and 1 pill day 2-7 04/06/2016 07/21/2016 Inactive warfarin 5 mg tablet RxNorm: 580172 Tablet(s) 1/2 TABLETS BY MOUTH ON AND WEDNESDAY. TAKE ONLY 1 TABLET BY MOUTH ALL OTHER DAYS OF THE WEEK 03/18/2016 07/07/2016 In active triamcinolone aceton sreekanth 0.025 % topical cream RxNorm: 8118593 1 Application TOP BI D 03/10/2016 08/16/2017 In active potassium chloride E R 20 mEq tablet,extended release RxNorm: 197716 1 Tablet(s) PO daily 03/04/2016 06/01/2016 Inactive Levaquin 250 mg tablet RxNorm: 164956 Tablet(s) PO 2 pills day one and 1 pill day 2-7 03/04/2016 04/05/2016 Inactive Levaquin 250 mg tablet RxNorm: 571823 Tablet(s) PO 2 pills day one and 1 pill day 2-7 03/03/2016 03/03/2016 Inactive potassium chloride E R 20 mEq tablet,extended release RxNorm: 934753 1 Tablet(s) PO daily 03/03/2016 03/03/2016 Inactive Cipro 500 mg tablet RxNorm: 792800 1 Tablet(s) PO BID 02/20/2016 07/21/2016 Inactive Cipro 500 mg tablet RxNorm: 069430 1 Tablet(s) PO BID 02/20/2016 02/19/2016 Inactive furosemide 40 mg tablet RxNorm: 924568 TAKE ONE TABLET BY MOUTH DAILY 01/27/2016 01/26/2016 In active warfarin 5 mg tablet RxNorm: 493374 TAKE 1 AND 1/2 TABLETS BY MOUTH ON AND WEDNESDAY. TAKE ONLY 1 TABLET BY MOUTH ALL OTHER DAYS OF THE WEEK 01/27/2016 01/26/2016 In active furosemide 40 mg tablet RxNorm: 605317 TAKE ONE TABLET BY MOUTH DAILY 01/27/2016 06/04/2016 In active warfarin 5 mg tablet RxNorm: 353586 TAKE 1 AND 1/2 TABLETS BY MOUTH ON AND WEDNESDAY. TAKE ONLY 1 TABLET BY MOUTH ALL OTHER DAYS OF THE WEEK 01/27/2016 03/17/2016 In active potassium chloride E R 20 mEq tablet,extended release RxNorm: 741509 1 Tablet(s) PO daily 11/20/2015 03/02/2016 Inactive furosemide 40 mg tablet RxNorm: 830740 TAKE ONE TABLET BY MOUTH DAILY 11/12/2015 01/26/2016 In active Zovirax 5 % topical cream RxNorm: 953337 TOP QID 0 09/24/2015 09/23/2015 Inactive Zovirax 5 % topical cream RxNorm: 926366 TOP QID 0 09/24/2015 11/19/2015 Inactive nystatin 100,000 uni t/gram topical cream RxNorm: 657797 1 Application TOP TID 09/17/2015 10/12/2016 In active warfarin 5 mg tablet RxNorm: 735700 TAKE 1 AND 1/2 TABLETS BY MOUTH ON AND WEDNESDAY. TAKE ONLY 1 TABLET BY MOUTH ALL OTHER DAYS OF THE WEEK 08/19/2015 01/05/2016 In active loratadine 10 mg tablet RxNorm: 259342 1 Tablet(s) PO daily 07/30/2015 07/23/2016 Inactive loratadine 10 mg tablet RxNorm: 706972 1 Tablet(s) PO daily 07/30/2015 07/29/2015 Inactive furosemide 40 mg tablet RxNorm: 483140 TAKE ONE TABLET BY MOUTH DAILY 06/24/2015 11/11/2015 In active levothyroxine 125 mc g tablet RxNorm: 040563 1 Tablet(s) PO daily 05/31/2015 05/24/2016 Inactive furosemide 40 mg tablet RxNorm: 088563 1 Tablet(s) PO daily 04/05/2015 06/23/2015 Inactive warfarin 5 mg tablet RxNorm: 415232 TAKE 1 AND 1/2 TABLETS BY MOUTH ON AND WEDNESDAY. TAKE ONLY 1 TABLET BY MOUTH ALL OTHER DAYS OF THE WEEK 02/12/2015 07/29/2015 In active Flonase Allergy Reli ef 50 mcg/actuation nasal spray,suspension RxNorm: 2 [place] NASAL daily 02/05/2015 03/06/2015 Inactive Kenalog 40 mg/mL zohra pension for injection RxNorm: 9210822 Milliliter(s) Inj 02/05/2015 02/05/2015 In active warfarin 5 mg tablet RxNorm: 447583 Take 7.5mg (1 1/2 tablets) Wednesday and and 1 Tablet(s) PO (5mg) all other days 01/11/2015 02/09/2015 Inactive levothyroxine 125 mc g tablet RxNorm: 306006 1 Tablet(s) PO every other day 01/01/2015 05/30/2015 In active alternate with 150 levothyroxine 150 mc g tablet RxNorm: 394906 1 Tablet(s) PO every other day 01/01/2015 05/30/2015 In active alternate with 125 loratadine 10 mg tablet RxNorm: 255409 Tablet(s) PO as needed No Start Date Active Fish Oil 1,000 mg ca psule RxNorm: 1 Capsule(s) PO TID No Start Date Active magnesium 250 mg tablet RxNorm: 1 Tablet(s) PO daily No Start Date Active Vitamin D3 2,000 uni t tablet RxNorm: 944688 2 Tablet(s) PO daily No Start Date Active Fosamax 35 mg tablet RxNorm: 451474 1 Tablet(s) PO QW No Start Date Active levothyroxine 125 mc g tablet RxNorm: 263069 1 Tablet(s) PO daily No Start Date 12/31/2014 Inactive levothyroxine 150 mc g tablet RxNorm: 226449 1 Tablet(s) PO daily No Start Date 12/31/2014 Inactive diltiazem 60 mg tablet RxNorm: 166042 1 Tablet(s) PO QID No Start Date 03/23/2018 Inactive meclizine 25 mg tablet RxNorm: 032571 1 Tablet(s) PO TID as needed Dizziness No Start Date 07/18/2018 Inactive furosemide 40 mg tablet RxNorm: 766561 1 Tablet(s) PO daily No Start Date 04/04/2015 Inactive potassium chloride RxNorm: miscellaneous No Start Date 11/19/2015 Inactive Vitamin D2 oral RxNorm: 4018 oral No Start Date 05/31/2015 Inactive warfarin 5 mg tablet RxNorm: 205793 1 Tablet(s) PO daily No Start Date 01/10/2015 Inactive Coumadin 4 mg tablet RxNorm: 319369 1 Tablet(s) PO Wed/ No Start Date 07/28/2017 Inactive Medication Administered Medication Codes Instruc tions Start Date Status ceftriaxone 500 mg solution for injection RxNorm: 0042373 10/27/2018 No longer A ctive ceftriaxone 500 mg solution for injection RxNorm: 7695178 07/22/2016 No longer A ctive Kenalog 40 mg/mL suspension for injection RxNorm: 3879534 Milliliter 07/22/2016 No longer Active Kenalog 40 mg/mL suspension for injection RxNorm: 4578385 Milliliter 02/05/2015 No longer Active Immunizations Vaccine [...] skin changes ICD-10: R23.8 ICD-9: 782.9 09/27/2018 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 ICD-10: Z79.01 ICD-9: [...] 244.9 11/20/2014 ACTINIC KERATOSIS ICD-9: 702.0 11/20/2014 visitor 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 us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 therapy ICD-9: V58.61 [...] Code Item Item Code Result Date Pt Aju3171 PT 24.4 seconds 10/24/2018 Pt Gzb2304 INR 2.2 10/24/2018 Pt Qvb4777 Low Intensity - 1.5-2.0 10/24/2018 Pt Uxa5171 Mod intensity - 2.0-3.0 10/24/2018 Pt Jzj4149 Hi intensity - 3.0-4.0 10/24/2018 Lipid Ord30 CHOL 143 mg/dL 10/24/2018 Lipid Ord30 HDL 52.0 mg/dl 10/24/2018 Lipid Ord30 TRIG 78 mg/dL 10/24/2018 Lipid Ord30 LDL 75 mg/dL 10/24/2018 Lipid Ord30 C/HDL 2.8 Ratio 10/24/2018 Comp Metabolic Hkj475 NA 142 mEq/L 10/24/2018 Comp Metabolic Crt724 K 4.6 mEq/L 10/24/2018 Comp Metabolic Wrr688 CL 107 mEq/L 10/24/2018 Comp Metabolic Fyx069 CO2 27.0 mEq/L 10/24/2018 Comp Metabolic Ysv952 AN ION GAP 13 10/24/2018 Comp Metabolic Rxw253 GL UCOSE 82 mg/dL 10/24/2018 Comp Metabolic Opi069 Cr eat 1.1 mg/dL 10/24/2018 Comp Metabolic Dwd557 eG FR 54 ml/min/1.73m2 10/24 Comp Metabolic Njj263 BUN 23 mg/dL 10/24/2018 Comp Metabolic Ajr874 B/ C Ratio 21.9 Ratio 10/24/2018 Comp Metabolic Nqa215 CA LCIUM 9.0 mg/dL 10/24/2018 Comp Metabolic Jef197 AL K PHOS 64 U/L 10/24/2018 Comp Metabolic Hqf681 T(SGOT) 18 U/L 10/24/2018 Comp Metabolic Vxz686 AL T(SGPT) 14 U/L 10/24/2018 Comp Metabolic Zqh818 BI LI T 0.5 mg/dL 10/24/2018 Comp Metabolic Txi179 AL BUMIN 3.0 g/dL 10/24/2018 Comp Metabolic Vkd335 TP RO 5.2 g/dL 10/24/2018 Comp Metabolic Lmf836 GL OB 2.2 g/dL 10/24/2018 Comp Metabolic Uyb439 A/ G Ratio 1.4 Ratio 10/24/2018 Comp Metabolic Nvd835 Os mo 286 mOsmo 10/24/2018 Pt Igt5154 PT 23.8 seconds 09/29/2018 Pt Kwx5679 INR 2.2 09/29/2018 Pt Pgu5017 Low Intensity - 1.5-2.0 09/29/2018 Pt Vvq3579 Mod intensity - 2.0-3.0 09/29/2018 Pt Fra6677 Hi intensity - 3.0-4.0 09/29/2018 Pt Hlh1514 PT 19.6 seconds 09/19/2018 Pt Wng8788 INR 1.7 09/19/2018 Pt Ojb8093 Low Intensity - 1.5-2.0 09/19/2018 Pt Kzc4112 Mod intensity - 2.0-3.0 09/19/2018 Pt Wmu6348 Hi intensity - 3.0-4.0 09/19/2018 Pt Vko8133 PT 16.8 seconds 09/12/2018 Pt Wbo8776 INR 1.4 09/12/2018 Pt Gwy5487 Low Intensity - 1.5-2.0 09/12/2018 Pt Fki8864 Mod intensity - 2.0-3.0 09/12/2018 Pt Hmo6772 Hi intensity - 3.0-4.0 09/12/2018 Pt Exf6379 PT 13.1 seconds 09/07/2018 Pt Udc8865 INR 1.0 09/07/2018 Pt Yrx5443 Low Intensity - 1.5-2.0 09/07/2018 Pt Vni7757 Mod intensity - 2.0-3.0 09/07/2018 Pt Ptw5428 Hi intensity - 3.0-4.0 09/07/2018 Pt Axu2499 PT 24.1 seconds 08/23/2018 Pt Oam3142 INR 2.2 08/23/2018 Pt Idr7903 Low Intensity - 1.5-2.0 08/23/2018 Pt Yuj2435 Mod intensity - 2.0-3.0 08/23/2018 Pt Hab8985 Hi intensity - 3.0-4.0 08/23/2018 Pt Doa9734 PT 30.9 seconds 08/16/2018 Pt Vog5679 INR 3.0 08/16/2018 Pt Rvt1473 Low Intensity - 1.5-2.0 08/16/2018 Pt Tmk6147 Mod intensity - 2.0-3.0 08/16/2018 Pt Tgo1782 Hi intensity - 3.0-4.0 08/16/2018 Pt Iiq6965 PT 29.5 seconds 08/01/2018 Pt Lmu5898 INR 2.8 08/01/2018 Pt Igw4947 Low Intensity - 1.5-2.0 08/01/2018 Pt Rtf0237 Mod intensity - 2.0-3.0 08/01/2018 Pt Qqz0943 Hi intensity - 3.0-4.0 08/01/2018 Pt Rlr1609 PT 24.2 seconds 07/25/2018 Pt Qfl8147 INR 2.2 07/25/2018 Pt Tpk4615 Low Intensity - 1.5-2.0 07/25/2018 Pt Upg1928 Mod intensity - 2.0-3.0 07/25/2018 Pt Hhj8979 Hi intensity - 3.0-4.0 07/25/2018 Pt Xis2883 PT 38.6 seconds 07/19/2018 Pt Fqv8917 INR 4.0 07/19/2018 Pt Odz9088 Low Intensity - 1.5-2.0 07/19/2018 Pt Vvh4002 Mod intensity - 2.0-3.0 07/19/2018 Pt Ydl2738 Hi intensity - 3.0-4.0 07/19/2018 Pt Idr9849 PT 25.7 seconds 07/11/2018 Pt Yol6771 INR 2.4 07/11/2018 Pt Mfx4512 Low Intensity - 1.5-2.0 07/11/2018 Pt Rro2263 Mod intensity - 2.0-3.0 07/11/2018 Pt Huh9143 Hi intensity - 3.0-4.0 07/11/2018 Pt Ivc7369 PT 18.5 seconds 07/08/2018 Pt Fez8258 INR 1.6 07/08/2018 Pt Pds4153 Low Intensity - 1.5-2.0 07/08/2018 Pt Lgy7242 Mod intensity - 2.0-3.0 07/08/2018 Pt Etc8899 Hi intensity - 3.0-4.0 07/08/2018 Pt Esr3721 PT 27.3 seconds 06/29/2018 Pt Olj2695 INR 2.6 06/29/2018 Pt Dvv6455 Low Intensity - 1.5-2.0 06/29/2018 Pt Usm7144 Mod intensity - 2.0-3.0 06/29/2018 Pt Jht7066 Hi intensity - 3.0-4.0 06/29/2018 Pt Loo8769 PT 24.0 seconds 05/26/2018 Pt Zqp4376 INR 2.2 05/26/2018 Pt Mnq5953 Low Intensity - 1.5-2.0 05/26/2018 Pt Jin9484 Mod intensity - 2.0-3.0 05/26/2018 Pt Jgg8854 Hi intensity - 3.0-4.0 05/26/2018 Tsh Ord6 [...] 29.6 pg 03/25/2018 Cbc With Differential Ord2 [place]% 9.5 % 03/25/2018 Cbc With Differential Ord2 [...] 2.19 K/ul 03/25/2018 Cbc With Differential Ord2 [place] ABS# 0.8 K/ul 03/25/2018 Cbc With Differential Ord2 Eos ABS# 0.3 K/ul 03/25/2018 Cbc With Differential Ord2 Baso ABS# 0.0 K/ul 03/25/2018 Lipid Ord30 CHOL 156 mg/dL 03/25/2018 Lipid Ord30 HDL 52.0 mg/dl 03/25/2018 Lipid Ord30 TRIG 98 mg/dL 03/25/2018 Lipid Ord30 LDL 84 mg/dL 03/25/2018 Lipid Ord30 C/HDL 3.0 Ratio 03/25/2018 Free T4 Owd754 FREE T4 1.73 ng/dL 03/25/2018 Comp Metabolic Jxj962 NA 143 mEq/L 03/25/2018 Comp Metabolic Dvs728 K 4.6 mEq/L 03/25/2018 Comp Metabolic Tbg866 CL 108 mEq/L 03/25/2018 Comp Metabolic Crs781 CO2 26.0 mEq/L 03/25/2018 Comp Metabolic Wtm152 AN ION GAP 14 03/25/2018 Comp Metabolic Jis539 GL UCOSE 87 mg/dL 03/25/2018 Comp Metabolic Uor804 Cr eat 1.2 mg/dL 03/25/2018 Comp Metabolic Xcz755 eG FR 48 ml/min/1.73m2 03/25 Comp Metabolic Nfz629 BUN 18 mg/dL 03/25/2018 Comp Metabolic Ksg213 B/ C Ratio 15.5 Ratio 03/25/2018 Comp Metabolic Otd459 CA LCIUM 9.1 mg/dL 03/25/2018 Comp Metabolic Yap967 AL K PHOS 58 U/L 03/25/2018 Comp Metabolic Nds146 T(SGOT) 21 U/L 03/25/2018 Comp Metabolic Dvv580 AL T(SGPT) 13 U/L 03/25/2018 Comp Metabolic Bxg705 BI LI T 0.7 mg/dL 03/25/2018 Comp Metabolic Zwh416 AL BUMIN 3.2 g/dL 03/25/2018 Comp Metabolic Ggw281 TP RO 5.5 g/dL 03/25/2018 Comp Metabolic Nlu034 GL OB 2.3 g/dL 03/25/2018 Comp Metabolic Ayr529 A/ G Ratio 1.4 Ratio 03/25/2018 Comp Metabolic Yem435 Os mo 286 mOsmo 03/25/2018 Pt Yyr0456 PT 29.0 seconds 03/22/2018 Pt Omt0721 INR 2.7 03/22/2018 Pt Ytp0080 Low Intensity - 1.5-2.0 03/22/2018 Pt Bsz3476 Mod intensity - 2.0-3.0 03/22/2018 Pt Twx9088 Hi intensity - 3.0-4.0 03/22/2018 Pt Ofb7475 PT 27.1 seconds 02/25/2018 Pt Xbi3822 INR 2.5 02/25/2018 Pt Yho8190 Low Intensity - 1.5-2.0 02/25/2018 Pt Pla1440 Mod intensity - 2.0-3.0 02/25/2018 Pt Lse3458 Hi intensity - 3.0-4.0 02/25/2018 Pt Qfo0960 PT 26.1 seconds 01/26/2018 Pt Fnh5152 INR 2.4 01/26/2018 Pt Qks3608 Low Intensity - 1.5-2.0 01/26/2018 Pt Vkm6617 Mod intensity - 2.0-3.0 01/26/2018 Pt Whm4378 Hi intensity - 3.0-4.0 01/26/2018 Pt Yre5005 PT 22.8 seconds 12/24/2017 Pt Lmm3230 INR 2.0 12/24/2017 Pt Wxw1553 Low Intensity - 1.5-2.0 12/24/2017 Pt Uvp1102 Mod intensity - 2.0-3.0 12/24/2017 Pt Hku3526 Hi intensity - 3.0-4.0 12/24/2017 Pt Hnh2125 PT 29.4 seconds 11/18/2017 Pt Hmh5289 INR 2.8 11/18/2017 Pt Qmt0311 Low Intensity - 1.5-2.0 11/18/2017 Pt Kpc7056 Mod intensity - 2.0-3.0 11/18/2017 Pt Iax7940 Hi intensity - 3.0-4.0 11/18/2017 Pt Mie1680 PT 26.6 seconds 09/13/2017 Pt Jdr2588 INR 2.4 09/13/2017 Pt Jbb8952 Low Intensity - 1.5-2.0 09/13/2017 Pt Eom2589 Mod intensity - 2.0-3.0 09/13/2017 Pt Wfp9397 Hi intensity - 3.0-4.0 09/13/2017 Pt Bih0687 PT 28.2 seconds 08/10/2017 Pt Wcz5375 INR 2.6 08/10/2017 Pt Yhe1969 Low Intensity - 1.5-2.0 08/10/2017 Pt Qyw4465 Mod intensity - 2.0-3.0 08/10/2017 Pt Hee4453 Hi intensity - 3.0-4.0 08/10/2017 Pt Qww4117 PT 33.9 seconds 07/27/2017 Pt Hdk0603 INR 3.3 07/27/2017 Pt Wpj1519 Low Intensity - 1.5-2.0 07/27/2017 Pt Sxm9080 Mod intensity - 2.0-3.0 07/27/2017 Pt Hsm2334 Hi intensity - 3.0-4.0 07/27/2017 Pt Ewp8224 PT 29.1 seconds 06/29/2017 Pt Nji5924 INR 2.7 06/29/2017 Pt Nos6768 Low Intensity - 1.5-2.0 06/29/2017 Pt Yjh3416 Mod intensity - 2.0-3.0 06/29/2017 Pt Rro7569 Hi intensity - 3.0-4.0 06/29/2017 Pt Jed2730 PT 30.3 seconds 06/11/2017 Pt Xef4529 INR 2.9 06/11/2017 Pt Pgz2502 Low Intensity - 1.5-2.0 06/11/2017 Pt Jmx5123 Mod intensity - 2.0-3.0 06/11/2017 Pt Lyh9018 Hi intensity - 3.0-4.0 06/11/2017 Pt Qvn4521 PT 39.1 seconds 06/07/2017 Pt Bpp4863 INR 3.9 06/07/2017 Pt Dek0513 Low Intensity - 1.5-2.0 06/07/2017 Pt Zfz2361 Mod intensity - 2.0-3.0 06/07/2017 Pt Fmh0509 Hi intensity - 3.0-4.0 06/07/2017 Pt Xge1941 PT 34.2 seconds 05/26/2017 Pt Ilt1035 INR 3.3 05/26/2017 Pt Uhw2823 Low Intensity - 1.5-2.0 05/26/2017 Pt Djd9149 Mod intensity - 2.0-3.0 05/26/2017 Pt Knl9154 Hi intensity - 3.0-4.0 05/26/2017 Comp Metabolic Rar010 NA 138 mEq/L 04/23/2017 Comp Metabolic Uzn439 K 4.2 mEq/L 04/23/2017 Comp Metabolic Hpr875 CL 101 mEq/L 04/23/2017 Comp Metabolic Bze355 CO2 28.0 mEq/L 04/23/2017 Comp Metabolic Vni851 AN ION GAP 13 04/23/2017 Comp Metabolic Zss226 GL UCOSE 89 mg/dL 04/23/2017 Comp Metabolic Tmm058 Cr eat 1.1 mg/dL 04/23/2017 Comp Metabolic Kcd115 eG FR 51 ml/min/1.73m2 04/23 Comp Metabolic Zis324 BUN 26 mg/dL 04/23/2017 Comp Metabolic Bwx666 B/ C Ratio 23.9 Ratio 04/23/2017 Comp Metabolic Pzt634 CA LCIUM 9.4 mg/dL 04/23/2017 Comp Metabolic Sqw563 AL K PHOS 95 U/L 04/23/2017 Comp Metabolic Uxf164 T(SGOT) 18 U/L 04/23/2017 Comp Metabolic Jck133 AL T(SGPT) 17 U/L 04/23/2017 Comp Metabolic Apa866 BI LI T 0.7 mg/dL 04/23/2017 Comp Metabolic Zfx291 AL BUMIN 3.2 g/dL 04/23/2017 Comp Metabolic Xfh784 TP RO 5.6 g/dL 04/23/2017 Comp Metabolic Ngt631 GL OB 2.4 g/dL 04/23/2017 Comp Metabolic Cev913 A/ G Ratio 1.3 Ratio 04/23/2017 Comp Metabolic Zwx747 Os mo 280 mOsmo 04/23/2017 Pt Qjc4834 PT 28.6 seconds 04/23/2017 Pt Dwt1302 INR 2.7 04/23/2017 Pt Vcy5295 Low Intensity - 1.5-2.0 04/23/2017 Pt Not7126 Mod intensity - 2.0-3.0 04/23/2017 Pt Uzn8899 Hi intensity - 3.0-4.0 04/23/2017 Pt Jot1781 PT 24.4 seconds 03/16/2017 Pt Xpw3757 INR 2.2 03/16/2017 Pt Gge6008 Low Intensity - 1.5-2.0 03/16/2017 Pt Bmz2091 Mod intensity - 2.0-3.0 03/16/2017 Pt Xgs4724 Hi intensity - 3.0-4.0 03/16/2017 Pt Qfl1440 PT 28.2 seconds 02/24/2017 Pt Xkk7925 INR 2.6 02/24/2017 Pt Izr8273 Low Intensity - 1.5-2.0 02/24/2017 Pt Qsk4935 Mod intensity - 2.0-3.0 02/24/2017 Pt Zjj9440 Hi intensity - 3.0-4.0 02/24/2017 Pt Kcf9318 PT 26.8 seconds 02/08/2017 Pt Qng6923 INR 2.5 02/08/2017 Pt Dqp0478 Low Intensity - 1.5-2.0 02/08/2017 Pt Pmh8738 Mod intensity - 2.0-3.0 02/08/2017 Pt Lnd3304 Hi intensity - 3.0-4.0 02/08/2017 Lipid Ord30 CHOL 150 mg/dL 01/25/2017 Lipid Ord30 HDL 55.0 mg/dl 01/25/2017 Lipid Ord30 TRIG 66 mg/dL 01/25/2017 Lipid Ord30 LDL 82 mg/dL 01/25/2017 Lipid Ord30 C/HDL 2.7 Ratio 01/25/2017 Pt Vtw7227 PT 29.9 seconds 01/25/2017 Pt Mvf9016 INR 2.8 01/25/2017 Pt Mqu9565 Low Intensity - 1.5-2.0 01/25/2017 Pt Dus4603 Mod intensity - 2.0-3.0 01/25/2017 Pt Zcx8003 Hi intensity - 3.0-4.0 01/25/2017 Comp Metabolic Zdc328 NA 143 mEq/L 01/25/2017 Comp Metabolic Dqw708 K 3.9 mEq/L 01/25/2017 Comp Metabolic Xdl869 CL 108 mEq/L 01/25/2017 Comp Metabolic Knn482 CO2 23.0 mEq/L 01/25/2017 Comp Metabolic Cxi937 AN ION GAP 16 01/25/2017 Comp Metabolic Whg757 GL UCOSE 80 mg/dL 01/25/2017 Comp Metabolic Drt198 Cr eat 1.0 mg/dL 01/25/2017 Comp Metabolic Rsi247 eG FR 57 ml/min/1.73m2 01/25 Comp Metabolic Iuj898 BUN 25 mg/dL 01/25/2017 Comp Metabolic Etd185 B/ C Ratio 25.0 Ratio 01/25/2017 Comp Metabolic Zzd755 CA LCIUM 8.5 mg/dL 01/25/2017 Comp Metabolic Kyk800 AL K PHOS 81 U/L 01/25/2017 Comp Metabolic Kgf982 T(SGOT) 19 U/L 01/25/2017 Comp Metabolic Tnh117 AL T(SGPT) 23 U/L 01/25/2017 Comp Metabolic Xdn601 BI LI T 0.5 mg/dL 01/25/2017 Comp Metabolic Bcp990 AL BUMIN 2.9 g/dL 01/25/2017 Comp Metabolic Yby612 TP RO 5.1 g/dL 01/25/2017 Comp Metabolic Ojv346 GL OB 2.2 g/dL 01/25/2017 Comp Metabolic Scv129 A/ G Ratio 1.3 Ratio 01/25/2017 Comp Metabolic Xml722 Os mo 288 mOsmo 01/25/2017 Cbc With [...] 30.7 pg 01/25/2017 Cbc With Differential Ord2 Holmes% 8.2 % 01/25/2017 Cbc With Differential Ord2 [...] 3.10 K/ul 01/25/2017 Cbc With Differential Ord2 Holmes ABS# 0.8 K/ul 01/25/2017 Cbc With Differential Ord2 Eos ABS# 0.4 K/ul 01/25/2017 Cbc With Differential Ord2 Baso ABS# 0.1 K/ul 01/25/2017 Free T4 Tvg577 FREE T4 2.09 ng/dL 01/25/2017 Tsh Ord6 hTSH II 0.46 uIU/mL 01/25/2017 Pt Qvg2575 PT 26.1 seconds 11/26/2016 Pt Pql3187 INR 2.6 11/26/2016 Pt Cxr7212 Low Intensity - 1.5-2.0 11/26/2016 Pt Ids0243 Mod intensity - 2.0-3.0 11/26/2016 Pt Wbx6863 Hi intensity - 3.0-4.0 11/26/2016 Pt Zzz0171 PT 26.2 seconds 10/29/2016 Pt Dzf3591 INR 2.6 10/29/2016 Pt Ard6739 Low Intensity - 1.5-2.0 10/29/2016 Pt Wmv8224 Mod intensity - 2.0-3.0 10/29/2016 Pt Oxa9557 Hi intensity - 3.0-4.0 10/29/2016 Pt Ouj7211 PT 20.8 seconds 10/13/2016 Pt Nps5088 INR 1.9 10/13/2016 Pt Hty8871 Low Intensity - 1.5-2.0 10/13/2016 Pt Qcj6002 Mod intensity - 2.0-3.0 10/13/2016 Pt Vmq2081 Hi intensity - 3.0-4.0 10/13/2016 Pt Zwt4202 PT 26.5 seconds 10/01/2016 Pt Com2644 INR 2.6 10/01/2016 Pt Tkl4559 Low Intensity - 1.5-2.0 10/01/2016 Pt Xta5018 Mod intensity - 2.0-3.0 10/01/2016 Pt Zqh5689 Hi intensity - 3.0-4.0 10/01/2016 Pt Fsh6906 PT 24.6 seconds 09/14/2016 Pt Dfp4718 INR 2.4 09/14/2016 Pt Xlt7445 Low Intensity - 1.5-2.0 09/14/2016 Pt Wil5462 Mod intensity - 2.0-3.0 09/14/2016 Pt Mgy6446 Hi intensity - 3.0-4.0 09/14/2016 Pt Pvf0396 PT 18.0 seconds 09/07/2016 Pt Vgc4621 INR 1.6 09/07/2016 Pt Dwv2615 Low Intensity - 1.5-2.0 09/07/2016 Pt Cop2747 Mod intensity - 2.0-3.0 09/07/2016 Pt Gbk5218 Hi intensity - 3.0-4.0 09/07/2016 Pt Gmq2836 PT 23.7 seconds 08/12/2016 Pt Dgj7811 INR 2.2 08/12/2016 Pt Bcm6029 Low Intensity - 1.5-2.0 08/12/2016 Pt Cuf4012 Mod intensity - 2.0-3.0 08/12/2016 Pt Gja5814 Hi intensity - 3.0-4.0 08/12/2016 Pt Xuj9379 PT 21.6 seconds 07/27/2016 Pt Ctx8471 INR 2.0 07/27/2016 Pt Oat6828 Low Intensity - 1.5-2.0 07/27/2016 Pt Fvf5593 Mod intensity - 2.0-3.0 07/27/2016 Pt Vls7921 Hi intensity - 3.0-4.0 07/27/2016 Pt Dfs2462 PT 26.0 seconds 06/15/2016 Pt Ljd2258 INR 2.5 06/15/2016 Pt Ukw2183 Low Intensity - 1.5-2.0 06/15/2016 Pt Cqa1864 Mod intensity - 2.0-3.0 06/15/2016 Pt Gdb6075 Hi intensity - 3.0-4.0 06/15/2016 Pt Ghw0609 PT 18.8 seconds 06/01/2016 Pt Vmj9395 INR 1.7 06/01/2016 Pt Tts7558 Low Intensity - 1.5-2.0 06/01/2016 Pt Ylf9073 Mod intensity - 2.0-3.0 06/01/2016 Pt Ucb9183 Hi intensity - 3.0-4.0 06/01/2016 Pt Rbl2503 PT 20.8 seconds 05/12/2016 Pt Vkh4863 INR 1.9 05/12/2016 Pt Bbt8154 Low Intensity - 1.5-2.0 05/12/2016 Pt Ciz3658 Mod intensity - 2.0-3.0 05/12/2016 Pt Mqs7742 Hi intensity - 3.0-4.0 05/12/2016 Pt Dqf5689 PT 24.5 seconds 04/10/2016 Pt Lrh4387 INR 2.4 04/10/2016 Pt Rfc0224 Low Intensity - 1.5-2.0 04/10/2016 Pt Krg0092 Mod intensity - 2.0-3.0 04/10/2016 Pt Lcp2558 Hi intensity - 3.0-4.0 04/10/2016 Pt Oht4999 PT 26.4 seconds 03/10/2016 Pt Gqj0396 INR 2.6 03/10/2016 Pt Kdq4113 Low Intensity - 1.5-2.0 03/10/2016 Pt Zox5167 Mod intensity - 2.0-3.0 03/10/2016 Pt Ewv8172 Hi intensity - 3.0-4.0 03/10/2016 Pt Wob3873 PT 24.9 seconds 03/06/2016 Pt Tef3854 INR 2.4 03/06/2016 Pt Ypq9965 Low Intensity - 1.5-2.0 03/06/2016 Pt Mqh9142 Mod intensity - 2.0-3.0 03/06/2016 Pt Yci4471 Hi intensity - 3.0-4.0 03/06/2016 Pt Ffs1149 PT 21.9 seconds 02/25/2016 Pt Ckh8777 INR 2.0 02/25/2016 Pt Frb5184 Low Intensity - 1.5-2.0 02/25/2016 Pt Vis0536 Mod intensity - 2.0-3.0 02/25/2016 Pt Buo2630 Hi intensity - 3.0-4.0 02/25/2016 Pt Vkz9657 PT 21.8 seconds 02/21/2016 Pt Lkh5228 INR 2.0 02/21/2016 Pt Kpm1865 Low Intensity - 1.5-2.0 02/21/2016 Pt Soy1502 Mod intensity - 2.0-3.0 02/21/2016 Pt Jas3187 Hi intensity - 3.0-4.0 02/21/2016 Culture Urine [id number] URI NE CULTURE SEE NOTES 02/20/2016 Culture Urine [id number] Con tinued Results 02/20/2016 Urine Culture Ucult [...] 29.2 pg 02/14/2016 Cbc With Differential Ord2 Holmes% 9.3 % 02/14/2016 Cbc With Differential Ord2 [...] 2.55 K/ul 02/14/2016 Cbc With Differential Ord2 Holmes ABS# 0.8 K/ul 02/14/2016 Cbc With Differential Ord2 Eos ABS# 0.4 K/ul 02/14/2016 Cbc With Differential Ord2 Baso ABS# 0.1 K/ul 02/14/2016 Tsh Ord6 hTSH II 0.80 uIU/mL 02/14/2016 Pt Pfm2828 PT 27.1 seconds 02/14/2016 Pt Xmg8742 INR 2.7 02/14/2016 Pt Yud8342 Low Intensity - 1.5-2.0 02/14/2016 Pt Fyy7059 Mod intensity - 2.0-3.0 02/14/2016 Pt Soy5248 Hi intensity - 3.0-4.0 02/14/2016 Free T4 Bdm004 FREE T4 1.87 ng/dL 02/14/2016 Comp Metabolic Bed153 NA 139 mEq/L 02/14/2016 Comp Metabolic Lta594 K 3.8 mEq/L 02/14/2016 Comp Metabolic Knq133 CL 103 mEq/L 02/14/2016 Comp Metabolic Iom387 CO2 27.0 mEq/L 02/14/2016 Comp Metabolic Qaq518 AN ION GAP 13 02/14/2016 Comp Metabolic Qqb531 GL UCOSE 91 mg/dL 02/14/2016 Comp Metabolic Dht238 Cr eat 1.0 mg/dL 02/14/2016 Comp Metabolic Iha577 eG FR 58 ml/min/1.73m2 02/13 Comp Metabolic Keo787 BUN 16 mg/dL 02/14/2016 Comp Metabolic Pdw114 B/ C Ratio 16.2 Ratio 02/14/2016 Comp Metabolic Ztc599 CA LCIUM 9.0 mg/dL 02/14/2016 Comp Metabolic Ikz911 AL K PHOS 88 U/L 02/14/2016 Comp Metabolic Jox480 T(SGOT) 17 U/L 02/14/2016 Comp Metabolic Qae837 AL T(SGPT) 12 U/L 02/14/2016 Comp Metabolic Weu988 BI LI T 0.6 mg/dL 02/14/2016 Comp Metabolic Wbd755 AL BUMIN 3.2 g/dL 02/14/2016 Comp Metabolic Khw864 TP RO 5.8 g/dL 02/14/2016 Comp Metabolic Vyb918 GL OB 2.6 g/dL 02/14/2016 Comp Metabolic Ggl086 A/ G Ratio 1.3 Ratio 02/14/2016 Comp Metabolic Tqf899 Os mo 278 mOsmo 02/14/2016 Pt Svu7130 PT 34.6 seconds 02/06/2016 Pt Zvs8957 INR 3.7 02/06/2016 Pt Tlg5123 Low Intensity - 1.5-2.0 02/06/2016 Pt Kyt6443 Mod intensity - 2.0-3.0 02/06/2016 Pt Ocq5048 Hi intensity - 3.0-4.0 02/06/2016 Pt Byu6588 PT 33.3 seconds 01/23/2016 Pt Ihx7581 INR 3.5 01/23/2016 Pt Pdl9873 Low Intensity - 1.5-2.0 01/23/2016 Pt Fxa6209 Mod intensity - 2.0-3.0 01/23/2016 Pt Qfq6489 Hi intensity - 3.0-4.0 01/23/2016 Pt Avw0346 PT 30.5 seconds 12/31/2015 Pt Nrz2460 INR 3.2 12/31/2015 Pt Nln2212 Low Intensity - 1.5-2.0 12/31/2015 Pt Dwi7025 Mod intensity - 2.0-3.0 12/31/2015 Pt Jzq5825 Hi intensity - 3.0-4.0 12/31/2015 Pt Vpu3647 PT 35.6 seconds 12/25/2015 Pt Cah0999 INR 3.9 12/25/2015 Pt Bqe7685 Low Intensity - 1.5-2.0 12/25/2015 Pt Eyn8575 Mod intensity - 2.0-3.0 12/25/2015 Pt Nxt1140 Hi intensity - 3.0-4.0 12/25/2015 Pt Acq3262 PT 30.8 seconds 11/21/2015 Pt Hxl6422 INR 3.2 11/21/2015 Pt Vty8209 Low Intensity - 1.5-2.0 11/21/2015 Pt Esi5541 Mod intensity - 2.0-3.0 11/21/2015 Pt Pzb7382 Hi intensity - 3.0-4.0 11/21/2015 Uric Acid [...] 30.0 pg 11/20/2015 Cbc With Differential Ord2 Holmes% 8.1 % 11/20/2015 Cbc With Differential Ord2 [...] 2.51 K/ul 11/20/2015 Cbc With Differential Ord2 Holmes ABS# 0.9 K/ul 11/20/2015 Cbc With Differential Ord2 Eos ABS# 0.3 K/ul 11/20/2015 Cbc With Differential Ord2 Baso ABS# 0.0 K/ul 11/20/2015 Comp Metabolic Gzg217 NA 137 mEq/L 10/22/2015 Comp Metabolic Rrt817 K 3.9 mEq/L 10/22/2015 Comp Metabolic Fof548 CL 100 mEq/L 10/22/2015 Comp Metabolic Cjp432 CO2 31.0 mEq/L 10/22/2015 Comp Metabolic Oka603 AN ION GAP 10 10/22/2015 Comp Metabolic Mnl578 GL UCOSE 94 mg/dL 10/22/2015 Comp Metabolic Ugb729 Cr eat 1.0 mg/dL 10/22/2015 Comp Metabolic Ggq589 eG FR 55 ml/min/1.73m2 10/21 Comp Metabolic Yqc807 BUN 19 mg/dL 10/22/2015 Comp Metabolic Dsl065 B/ C Ratio 18.3 Ratio 10/22/2015 Comp Metabolic Uef078 CA LCIUM 8.8 mg/dL 10/22/2015 Comp Metabolic Mfz298 AL K PHOS 83 U/L 10/22/2015 Comp Metabolic Xfk056 T(SGOT) 15 U/L 10/22/2015 Comp Metabolic Lxt597 AL T(SGPT) 13 U/L 10/22/2015 Comp Metabolic Qxz875 BI LI T 0.9 mg/dL 10/22/2015 Comp Metabolic Uyt337 AL BUMIN 2.8 g/dL 10/22/2015 Comp Metabolic Ljz252 TP RO 5.4 g/dL 10/22/2015 Comp Metabolic Fyb113 GL OB 2.6 g/dL 10/22/2015 Comp Metabolic Ovm216 A/ G Ratio 1.1 Ratio 10/22/2015 Comp Metabolic Imn317 Os mo 276 mOsmo 10/22/2015 Bili D Ord93 BILI D 0.1 mg/dL 10/22/2015 Bili D Ord93 BILI I 0.8 mg/dL 10/22/2015 Pt Oou9555 PT 22.8 seconds 10/22/2015 Pt Ijn7973 INR 2.1 10/22/2015 Pt Fwi4270 Low Intensity - 1.5-2.0 10/22/2015 Pt Kuw2961 Mod intensity - 2.0-3.0 10/22/2015 Pt Jwd4859 Hi intensity - 3.0-4.0 10/22/2015 Pt Pgw4792 PT 28.0 seconds 09/16/2015 Pt Pcr7545 INR 2.7 09/16/2015 Pt Fmk7581 Low Intensity - 1.5-2.0 09/16/2015 Pt Npe7032 Mod intensity - 2.0-3.0 09/16/2015 Pt Jky3503 Hi intensity - 3.0-4.0 09/16/2015 Tsh Ord6 hTSH II 1.40 uIU/mL 09/16/2015 Free T4 Zbd997 FREE T4 1.73 ng/dL 09/16/2015 Lipid Ord30 CHOL 169 mg/dL 09/16/2015 Lipid Ord30 HDL 66.0 mg/dl 09/16/2015 Lipid Ord30 TRIG 78 mg/dL 09/16/2015 Lipid Ord30 LDL 87 mg/dL 09/16/2015 Lipid Ord30 C/HDL 2.6 Ratio 09/16/2015 Pt Hug3432 PT 26.6 seconds 08/21/2015 Pt Ffq1830 INR 2.6 08/21/2015 Pt Etf1054 Low Intensity - 1.5-2.0 08/21/2015 Pt Qpp5260 Mod intensity - 2.0-3.0 08/21/2015 Pt Vgt2623 Hi intensity - 3.0-4.0 08/21/2015 Comp Metabolic Nsq811 NA 141 mEq/L 08/08/2015 Comp Metabolic Kdf719 K 3.3 mEq/L 08/08/2015 Comp Metabolic Jzt839 CL 102 mEq/L 08/08/2015 Comp Metabolic Wyp937 CO2 31.0 mEq/L 08/08/2015 Comp Metabolic Shq602 AN ION GAP 11 08/08/2015 Comp Metabolic Afw428 GL UCOSE 83 mg/dL 08/08/2015 Comp Metabolic Dgg046 Cr eat 1.0 mg/dL 08/08/2015 Comp Metabolic Lrg153 eG FR 55 ml/min/1.73m2 08/08 Comp Metabolic Xfr048 BUN 19 mg/dL 08/08/2015 Comp Metabolic Qdi002 B/ C Ratio 18.3 Ratio 08/08/2015 Comp Metabolic Pci730 CA LCIUM 8.9 mg/dL 08/08/2015 Comp Metabolic Aaj990 AL K PHOS 84 U/L 08/08/2015 Comp Metabolic Qms295 T(SGOT) 20 U/L 08/08/2015 Comp Metabolic Wnk011 AL T(SGPT) 18 U/L 08/08/2015 Comp Metabolic Sio468 BI LI T 0.6 mg/dL 08/08/2015 Comp Metabolic Pcd863 AL BUMIN 3.3 g/dL 08/08/2015 Comp Metabolic Tlk349 TP RO 5.9 g/dL 08/08/2015 Comp Metabolic Cjt337 GL OB 2.6 g/dL 08/08/2015 Comp Metabolic Dyy480 A/ G Ratio 1.3 Ratio 08/08/2015 Comp Metabolic Bed005 Os mo 283 mOsmo 08/08/2015 Cbc With [...] 30.0 pg 08/08/2015 Cbc With Differential Ord2 Holmes% 8.2 % 08/08/2015 Cbc With Differential Ord2 [...] 2.90 K/ul 08/08/2015 Cbc With Differential Ord2 Holmes ABS# 0.9 K/ul 08/08/2015 Cbc With Differential [...] Ord93 BILI I 0.5 mg/dL 08/08/2015 Pt Nby6327 PT 31.8 seconds 08/05/2015 Pt Wuf0548 INR 3.2 08/05/2015 Pt Yla2714 Low Intensity - 1.5-2.0 08/05/2015 Pt Nmr0260 Mod intensity - 2.0-3.0 08/05/2015 Pt Ffz3360 Hi intensity - 3.0-4.0 08/05/2015 Pt Lvf2398 PT 27.4 seconds 06/27/2015 Pt Qpr9470 INR 2.6 06/27/2015 Pt Quo0109 Low Intensity - 1.5-2.0 06/27/2015 Pt Udm0809 Mod intensity - 2.0-3.0 06/27/2015 Pt Xhv3364 Hi intensity - 3.0-4.0 06/27/2015 Tsh Ord6 [...] Ord2 RDW 15.1 % 05/31/2015 Free T4 Emf459 FREE T4 1.89 ng/dL 05/31/2015 Comp Metabolic Ocj141 NA 140 mEq/L 05/31/2015 Comp Metabolic Pjx631 K 3.3 mEq/L 05/31/2015 Comp Metabolic Udn370 CL 99 mEq/L 05/31/2015 Comp Metabolic Pmr390 CO2 30.0 mEq/L 05/31/2015 Comp Metabolic Zri920 AN ION GAP 14 05/31/2015 Comp Metabolic Xzh404 GL UCOSE 70 mg/dL 05/31/2015 Comp Metabolic Ltg069 Cr eat 1.0 mg/dL 05/31/2015 Comp Metabolic Air493 eG FR 55 ml/min/1.73m2 05/31 Comp Metabolic Alw095 BUN 23 mg/dL 05/31/2015 Comp Metabolic Smw369 B/ C Ratio 22.1 Ratio 05/31/2015 Comp Metabolic Bxz412 CA LCIUM 8.9 mg/dL 05/31/2015 Comp Metabolic Cms547 AL K PHOS 86 U/L 05/31/2015 Comp Metabolic Tyq603 T(SGOT) 28 U/L 05/31/2015 Comp Metabolic Vxa815 AL T(SGPT) 30 U/L 05/31/2015 Comp Metabolic Glv230 BI LI T 0.4 mg/dL 05/31/2015 Comp Metabolic Xys811 AL BUMIN 3.3 g/dL 05/31/2015 Comp Metabolic Qft215 TP RO 6.0 g/dL 05/31/2015 Comp Metabolic Eat542 GL OB 2.7 g/dL 05/31/2015 Comp Metabolic Qki659 A/ G Ratio 1.2 Ratio 05/31/2015 Comp Metabolic Qgi999 Os mo 282 mOsmo 05/31/2015 Pt Fte0146 PT 23.3 seconds 04/15/2015 Pt Eqp1541 INR 2.2 04/15/2015 Pt Yfb7802 Low Intensity - 1.5-2.0 04/15/2015 Pt Rvp9097 Mod intensity - 2.0-3.0 04/15/2015 Pt Bnz2470 Hi intensity - 3.0-4.0 04/15/2015 Pt Clj0228 PT 19.5 seconds 04/04/2015 Pt Wis3162 INR 1.7 04/04/2015 Pt Vto7143 Low Intensity - 1.5-2.0 04/04/2015 Pt Wdn2461 Mod intensity - 2.0-3.0 04/04/2015 Pt Yiy6627 Hi intensity - 3.0-4.0 04/04/2015 Pt Fyc5756 PT 39.8 seconds 04/01/2015 Pt Lpe1962 INR 4.3 04/01/2015 Pt Dzs7383 Low Intensity - 1.5-2.0 04/01/2015 Pt Smg8320 Mod intensity - 2.0-3.0 04/01/2015 Pt Zmo0709 Hi intensity - 3.0-4.0 04/01/2015 Metabolic Ord15 [...] Metabolic Ord15 CALCIUM 8.7 mg/dL 02/28/2015 Pt Lep9391 PT 31.4 seconds 02/28/2015 Pt Old7050 INR 3.2 02/28/2015 Pt Wnr8371 Low Intensity - 1.5-2.0 02/28/2015 Pt Car2974 Mod intensity - 2.0-3.0 02/28/2015 Pt Lss3075 Hi intensity - 3.0-4.0 02/28/2015 Pt Zah3427 PT 23.2 seconds 01/18/2015 Pt Epc8346 INR 2.1 01/18/2015 Pt Cnp4611 Low Intensity - 1.5-2.0 01/18/2015 Pt Cgh1243 Mod intensity - 2.0-3.0 01/18/2015 Pt Kzk8197 Hi intensity - 3.0-4.0 01/18/2015 Pt Taz0738 PT 18.2 seconds 01/10/2015 Pt Lrs3795 INR 1.6 01/10/2015 Pt Udf1668 Low Intensity - 1.5-2.0 01/10/2015 Pt Oss6646 Mod intensity - 2.0-3.0 01/10/2015 Pt Axi8545 Hi intensity - 3.0-4.0 01/10/2015 Review of [...] masses 03/24/2018 None Full Exam - General 1997 [...] 10/27/2018 URINALYSIS NONAUTO W /O SCOPE CPT-4: 67614 10/27/2018 ADMIN INFLUENZA VIRU S VAC CPT-4: G0008 03/24/2018 ADMIN PNEUMOCOCCAL V ACCINE SNOMED CT: 79674143 CPT-4: G0009 03/24/2018 FLU VACC PRSV FREE I NC ANTIG Formatting Model/CDA Sections, Assigned to/Dorothea Tan CPT-4: 16604Jonvyuj 03/24/2018 Pneumococcal Polysac charide Vaccine, 23-Valent, Ad CPT-4: 81141 03/24/2018 TRIAMCINOLONE ACET I [place] NOS CPT-4: J3301 06/15/2017 THER/PROPH/DIAG INJ SC/IM CPT-4: 79427 06/15/2017 ADMIN PNEUMOCOCCAL V ACCINE SNOMED CT: 34870307 CPT-4: G0009 03/16/2017 ADMIN INFLUENZA VIRU S VAC CPT-4: G0008 03/16/2017 FLU VAC NO PRSV 4 VA L 3 YRS+ CPT-4: 31389 03/16/2017 PNEUMOCOCCAL VACC [address]: 64385200 CPT-4: 28358 03/16/2017 URINALYSIS NONAUTO W /O SCOPE CPT-4: 59540 08/26/2016 THER/PROPH/DIAG INJ SC/IM CPT-4: 61623 07/22/2016 TRIAMCINOLONE ACET I [place] NOS CPT-4: J3301 07/22/2016 ROCEPHIN, PER 250 MG CPT-4: J0696 07/22/2016 TRIAMCINOLONE ACET I [place] NOS CPT-4: J3301 02/05/2015 Vital Signs Date Vital 10/27/2018 Blood Pressure 1: 120/74 Code: 8480-6 BMI: 32.4 Code: 59583-7 Heart Rate 1: 65 bpm Height: 5'7" SpO2: 97% Weight: 207 lbs 09/27/2018 Blood Pressure 1: 128/74 Code: 8480-6 BMI: 32.4 Code: 39819-9 Heart Rate 1: 92 bpm Height: 5'7" SpO2: 97% Weight: 207 lbs 08/16/2018 Blood Pressure 1: 104/66 Code: 8480-6 BMI: 32.3 Code: 12517-2 Heart Rate 1: 94 bpm Height: 5'7" SpO2: 96% Weight: 206 lbs 07/11/2018 Blood Pressure 1: 102/68 Code: 8480-6 BMI: 34.5 Code: 05133-2 Heart Rate 1: 101 bpm Height: 5'7" SpO2: 98% Weight: 220 lbs 03/24/2018 Blood Pressure 1: 130/72 Code: 8480-6 BMI: 33.4 Code: 17256-1 Heart Rate 1: 82 bpm Height: 5'7" SpO2: 93% Weight: 213 lbs 11/18/2017 Blood Pressure 1: 128/70 Code: 8480-6 BMI: 33.6 Code: 50988-2 Heart Rate 1: 98 bpm Height: 5'7" SpO2: 97% Weight: 214 lbs 8 oz 09/30/2017 Blood Pressure 1: 100/50 Code: 8480-6 BMI: 34.0 Code: 04214-8 Heart Rate 1: 66 bpm Height: 5'7" SpO2: 96% Weight: 217 lbs 08/17/2017 Blood Pressure 1: 104/60 Code: 8480-6 BMI: 33.7 Code: 86647-2 Heart Rate 1: 99 bpm Height: 5'7" SpO2: 97% Weight: 215 lbs 06/15/2017 Blood Pressure 1: 120/64 Code: 8480-6 BMI: 33.5 Code: 87357-4 Heart Rate 1: 91 bpm Height: 5'7" SpO2: 94% Weight: 214 lbs 04/01/2017 Blood Pressure 1: 110/68 Code: 8480-6 BMI: 154.4 Code: 70008-1 Heart Rate 1: 66 bpm Height: 2'7" SpO2: 95% Weight: 211 lbs 03/16/2017 Blood Pressure 1: 130/72 Code: 8480-6 BMI: 33.0 Code: 70346-3 Heart Rate 1: 95 bpm Height: 5'7" SpO2: 97% Weight: 211 lbs 02/09/2017 Blood Pressure 1: 120/70 Code: 8480-6 BMI: 32.9 Code: 36539-4 Heart Rate 1: 78 bpm Height: 5'7" SpO2: 96% Weight: 210 lbs 10/13/2016 Blood Pressure 1: 118/76 Code: 8480-6 BMI: 32.6 Code: 55074-5 Heart Rate 1: 97 bpm Height: 5'7" SpO2: 98% Weight: 208 lbs 07/31/2016 Blood Pressure 1: 110/64 Code: 8480-6 BMI: 32.1 Code: 82136-9 Heart Rate 1: 79 bpm Height: 5'7" SpO2: 94% Weight: 205 lbs 07/22/2016 Blood Pressure 1: 108/74 Code: 8480-6 BMI: 32.1 Code: 39109-1 Heart Rate 1: 71 bpm Height: 5'7" SpO2: 97% Temperature: 36.9 (C ) / 98.4 (F) Weight: 205 lbs 05/01/2016 Blood Pressure 1: 120/72 Code: 8480-6 BMI: 32.7 Code: 63834-6 Heart Rate 1: 75 bpm Height: 5'7" SpO2: 94% Weight: 209 lbs 04/06/2016 Blood Pressure 1: 106/62 Code: 8480-6 BMI: 32.7 Code: 48432-7 Heart Rate 1: 83 bpm Height: 5'7" SpO2: 97% Weight: 209 lbs 03/06/2016 Blood Pressure 1: 112/68 Code: 8480-6 BMI: 32.7 Code: 41728-8 Heart Rate 1: 90 bpm Height: 5'7" SpO2: 97% Weight: 209 lbs 03/03/2016 Blood Pressure 1: 120/62 Code: 8480-6 BMI: 32.7 Code: 97541-9 Heart Rate 1: 92 bpm Height: 5'7" SpO2: 98% Weight: 209 lbs 02/07/2016 Blood Pressure 1: 110/64 Code: 8480-6 BMI: 32.7 Code: 52851-1 Heart Rate 1: 87 bpm Height: 5'7" SpO2: 97% Weight: 209 lbs 12/13/2015 Blood Pressure 1: 11064 Code: 8480-6 BMI: 33.5 Code: 25201-7 Heart Rate 1: 90 bpm Height: 5'7" SpO2: 97% Weight: 214 lbs 12/03/2015 Blood Pressure 1: 132/76 Code: 8480-6 BMI: 33.4 Code: 17316-6 Heart Rate 1: 82 bpm Height: 5'7" SpO2: 99% Weight: 213 lbs 11/20/2015 Blood Pressure 1: 108/68 Code: 8480-6 BMI: 32.4 Code: 59417-6 Heart Rate 1: 77 bpm Height: 5'7" SpO2: 97% Weight: 207 lbs 09/17/2015 Blood Pressure 1: 122/76 Code: 8480-6 BMI: 33.0 Code: 86888-7 Heart Rate 1: 91 bpm Height: 5'7" SpO2: 97% Weight: 211 lbs 05/31/2015 Blood Pressure 1: 128/82 Code: 8480-6 BMI: 33.4 Code: 70970-2 Heart Rate 1: 98 bpm Height: 5'7" SpO2: 99% Weight: 213 lbs 02/05/2015 Blood Pressure 1: 128/80 Code: 8480-6 BMI: 32.6 Code: 88175-8 Heart Rate 1: 86 bpm Height: 5'7" SpO2: 97% Weight: 208 lbs 11/20/2014 Blood Pressure 1: 128/90 Code: 8480-6 BMI: 30.9 Code: 47110-5 Heart Rate 1: 94 bpm Height: 5'7" [...] ongoing 11/20/2015 None Hospital Follow Up _ [facility] er: fall 09/17/2015 None Hospital Follow Up [...] Findings Denies fever 05/31/2015 None hypothyroid 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 P ATIENT, LEVEL III Diagnosis: Urinary tract infection, site not specified[ICD10: N39.0] Brielle Pisano MD, [facility] CPT-4: 40929 10/27/2018 ([id number]) [id number] EST. P ATIENT, LEVEL IV Diagnosis: Atrophy of thyroid (acquired)[ICD10: E03.4] Diagnosis: Essential (primary) hypertension[ICD10: I10] Diagnosis: Other allergic rhinitis[ICD10: J30.89] Diagnosis: Other skin changes[ICD10: R23.8] Diagnosis: Chronic atrial fibrillation[ICD10: I48.2] Diagnosis: retirement (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[ICD10: Z79.01] Valerie Pisano MD, [facility] CPT-4: 92335 09/27/2018 ([id number]) [id number] EST. 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 P ATIENT, LEVEL IV Diagnosis: Atrophy of thyroid (acquired)[ICD10: E03.4] Diagnosis: Essential (primary) hypertension[ICD10: I10] Diagnosis: Other fatigue[ICD10: R53.83] Diagnosis: Localized edema[ICD10: R60.0] Valerie Pisano MD, [facility] CPT-4: 58185 07/11/2018 ([id number]) 39981 EST. P ATIENT, LEVEL IV Diagnosis: Essential (primary) hypertension[ICD10: I10] Diagnosis: Atrophy of thyroid (acquired)[ICD10: E03.4] Diagnosis: Chronic atrial fibrillation[ICD10: I48.2] Valerie Pisano MD, [facility] CPT-4: 46655 03/24/2018 ([id number]) 41447 EST. P ATIENT, LEVEL IV Diagnosis: Essential (primary) hypertension[ICD10: I10] Diagnosis: Atrophy of thyroid (acquired)[ICD10: E03.4] Diagnosis: Chronic atrial fibrillation[ICD10: I48.2] Valerie Pisano MD, [facility] CPT-4: 25982 11/18/2017 07738 EST. PATIENT, LEVEL IV Diagnosis: Localized edema[ICD10: R60.0] Roxie Pisano MD, [facility] CPT-4: 10992 09/30/2017 ([id number]) 04638 EST. P ATIENT, LEVEL III Diagnosis: Essential (primary) hypertension[ICD10: I10] Valerie Pisano MD, [facility] CPT-4: 08653 08/17/2017 ([id number]) 98848 EST. P ATIENT, LEVEL IV Diagnosis: Essential (primary) hypertension[ICD10: I10] Diagnosis: Atrophy of thyroid (acquired)[ICD10: E03.4] Diagnosis: Chronic atrial fibrillation[ICD10: I48.2] Diagnosis: Cervicalgia[ICD10: M54.2] Diagnosis: Other muscle spasm[ICD10: M62.838] Valerie Pisano MD, [facility] CPT- 4: 21304 06/15/2017 13430 EST. PATIENT, LEVEL III Diagnosis: Laceration without foreign body of other finger without damage to nail, initial encounter[ICD10: S61.218A] Roxie Pisano MD, [facility] CPT-4: 61015 04/01/2017 [id number] EST. 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 P ATIENT, LEVEL IV Diagnosis: Chronic atrial fibrillation[ICD10: I48.2] Diagnosis: Essential (primary) hypertension[ICD10: I10] Diagnosis: Other fatigue[ICD10: R53.83] Diagnosis: retirement (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[ICD10: Z79.01] Diagnosis: Atrophy of thyroid (acquired)[ICD10: E03.4] Valerie Pisano MD, [facility] CPT-4: 40347 02/09/2017 ([id number]) 58603 EST. P ATIENT, LEVEL IV Diagnosis: Essential (primary) hypertension[ICD10: I10] Diagnosis: Chronic atrial fibrillation[ICD10: I48.2] Diagnosis: Tinea corporis[ICD10: B35.4] Diagnosis: retirement (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[ICD10: Z79.01] Diagnosis: Other skin changes[ICD10: R23.8] Valerie Pisano MD, [facility] CPT-4: 81409 10/13/2016 28940 EST. PATIENT, LEVEL III Diagnosis: Other acute sinusitis[ICD10: J01.80] Diagnosis: Other allergic rhinitis[ICD10: J30.89] Roxie Pisano MD, [facility] CPT-4: 45643 07/31/2016 ([id number]) 52704 EST. P ATIENT, LEVEL III Diagnosis: Acute recurrent maxillary sinusitis[ICD10: J01.01] Valerie Pisano MD, [facility] CPT-4: 76345 07/22/2016 05526 EST. PATIENT, LEVEL IV Diagnosis: Essential (primary) hypertension[ICD10: I10] Diagnosis: Other allergic rhinitis[ICD10: J30.89] Diagnosis: Localized edema[ICD10: R60.0] Roxie Pisano MD, [facility] CPT-4: 87480 05/01/2016 [id number] EST. PATIENT, LEVEL III Diagnosis: Cellulitis of left lower limb[ICD10: L03.116] Diagnosis: Localized edema[ICD10: R60.0] Roxie Pisano MD, [facility] CPT-4: 58512 04/06/2016 ([id number]) Miscellcarlitoou s no charge Diagnosis: Cellulitis of left lower limb[ICD10: L03.116] Diagnosis: Localized edema[ICD10: R60.0] Roxie Pisano MD, [facility] CPT-4: 62921 03/10/2016 ([id number]) Alyciacellaneou s no charge Diagnosis: Cellulitis of left lower limb[ICD10: L03.116] Roxie Pisano MD, [facility] CPT-4: 36091 03/06/2016 [id number] EST. PATIENT, LEVEL IV Diagnosis: Cellulitis of left lower limb[ICD10: L03.116] Diagnosis: Localized edema[ICD10: R60.0] Roxie Pisano MD, [facility] CPT-4: 86041 03/03/2016 ([id number]) 95884 EST. 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 P ATIENT, LEVEL III Diagnosis: Iliotibial band syndrome, right leg[ICD10: M76.31] Diagnosis: Localized edema[ICD10: R60.0] Brielle Pisano MD, [facility] CPT- 4: 09173 12/13/2015 ([id number]) 65180 EST. P ATIENT, LEVEL III Diagnosis: Localized edema[ICD10: R60.0] Diagnosis: Essential (primary) hypertension[ICD10: I10] Brielle Pisano MD, [facility] CPT-4: 41829 12/03/2015 ([id number]) 77342 EST. 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 P ATIENT, LEVEL IV Diagnosis: Localized edema[ICD10: R60.0] Diagnosis: Other specified hypothyroidism[ICD10: E03.8] Diagnosis: Essential (primary) hypertension[ICD10: I10] Brielle Pisano MD, [facility] CPT-4: 68173 05/31/2015 ([id number]) 23686 EST. P ATIENT, LEVEL III Diagnosis: ALLERGIC RHINITIS[ICD9: 477.9] Diagnosis: ESSENTIAL HYPERTENSION[ICD9: 401.9] Brielle Pisano MD, [facility] CPT-4: 28224 02/05/2015 ([id number]) OFFICE [facility], [facility] - LEVEL 4 Diagnosis: ESSENTIAL HYPERTENSION[ICD9: 401.9] Diagnosis: HYPOTHYROIDISM[ICD9: 244.9] Diagnosis: ACTINIC KERATOSIS[ICD9: 702.0] Valerie Pisano MD, [facility] CPT-4: 33675 11/20/2014 Plan of Care Planned Activity Notes C odes Status Date Visit Plan: UTI - pt with positive urinalysis - culture sent if appropriate. Antibiotic electronically prescribed to pt's pharmacy of choice. Pt to call if symptoms do not improve. 10/27/2018 Appointment: [phone] [place] (10 min) Simple 10/27/2018 Patient Education: Patient Medication Summary Completed 10/27/2018 Care Plan: Urine Culture Pending 10/27/2018 Visit Plan: Hypertension - well con [...] Hernandez. 09/27/2018 Appointment: [phone] [place] (15 min) Moderate 09/27/2018 Patient Education: Patient [...] daily. 08/16/2018 Appointment: [phone] [facility] (15 min) Moderate 08/16/2018 Patient Education: Patient Medication Summary Completed 08/16/2018 Patient Education: Hypertension Completed 08/16/2018 Patient Education: Patient Medication Summary Completed 07/29/2018 Appointment: Bri[facility] Cavazos [facility]Ptel[phone] [phone] (15 min) Moderate 07/12/2018 Visit Plan: Hypertension [...] daily. 07/11/2018 Appointment: [facility]ano [facility]el[facility] [phone] [facility] (15 min) Moderate 07/11/2018 Patient Education: Patient [...] today. 03/24/2018 Appointment: [facility]el[phone] [facility] (15 min) Moderate 03/24/2018 Patient Education: Patient [...] of control. 11/18/2017 Appointment: Valerie Pisano WPtel: [facility]5 [facility]66[facility] (15 min) Moderate 11/18/2017 Patient Education: Patient Medication Summary Completed 11/18/2017 Referral: [facility] WPtel: [address] Pt notified at appointment Appointment Confirmed [...] Unna Boots 09/30/2017 Appointment: Roxie Cazares WPtel: [address] [place], [place] [id number] (30 min) Complex 09/30/2017 Patient Education: Patient Medication Summary Completed 09/30/2017 Care Plan: Referral Order SNOMED-CT : [id number] Pending 09/30/2017 Visit Plan: Hypertension - well [...] this time. 08/17/2017 Appointment: Valerie Pisano WPtel: [facility]5 [facility]66[facility] (15 min) Moderate 08/17/2017 Patient Education: [...] neck muscles. allergies - kenalog 40mg im [employer] - lot # [id number] expires september 2018 06/15/2017 Visit Plan: Hypertension [...] neck muscles. 06/15/2017 Appointment: Valerie Pisano WPtel: [address] [place], [place] [address] (15 min) Moderate 06/15/2017 Patient Education: Patient Medication Summary Completed 06/15/2017 Care Plan: Referral Order SNOMED-CT : [id number] Pending 06/15/2017 Appointment: Nurse Visit 04/05/2017 Appointment: [...] tetanus booster. 04/01/2017 Appointment: Roxie Cazares WPtel: [phone] [facility] (15 min) Moderate 04/01/2017 Patient Education: [...] Pisano WPtel: [phone] [facility] (15 min) Moderate 03/16/2017 Patient Education: Patient [...] spray. 02/09/2017 Appointment: [facility]el[phone] ([facility] min) Moderate 02/09/2017 Patient Education: Patient Medication Summary Completed 02/09/2017 Patient Education: Obesity Completed 02/09/2017 Patient Education: Hypertension Completed 02/09/2017 Patient Education: Patient Medication Summary Completed 01/25/2017 Visit Plan: Hypertension - sana gonzalezfedestephen - continue with current medications, continue with [...] nystatin 10/13/2016 Appointment: Val[facility]ano [facility]Ptel: [phone] (15 min) Moderate 10/13/2016 Patient Education: Patient Medication Summary Completed 10/13/2016 Patient Education: Obesity Completed 10/13/2016 Patient Education: Hypertension Completed 10/13/2016 Care Plan: Urine Culture Pending 08/31/2016 Appointment: Roxie Cazares WPtel: [phone] [facility] Lab Draw 08/27/2016 Appointment: Nurse Visit [...] allergy spray. 07/31/2016 Appointment: Brielle Cavazos WPtel: [facility]5 [phone] (30 min) Complex 07/31/2016 Patient Education: Patient Medication Summary Completed 07/31/2016 Patient Education: Obesity Completed 07/31/2016 Visit Plan: Sinusitis - Pt has acut e infection - pain in face, maxillary region, Pt informed to use decongestant, RX given to patient, sinus rinses also recommended. Call if symptoms do not show improvement. 07/22/2016 Appointment: Valerie Pisano WPtel: [facility]5 [facility] (15 min) Moderate 07/22/2016 Patient Education: Patient [...] peripheral edema. 05/01/2016 Appointment: Brielle Cavazos WPtel: [facility]8 [phone] (30 min) Complex 05/01/2016 Patient Education: [...] peripheral edema. 04/06/2016 Appointment: Roxie Cazares WPtel: [facility]6 [facility] (30 min) Complex 04/06/2016 Patient Education: Patient Medication Summary Completed 04/06/2016 Patient Education: Obesity Completed 04/06/2016 Visit Plan: left foot - improved - pt finished with antibiotics - continue to monitor - notify clinic with any concerns. Repeat INR today. 03/10/2016 Appointment: Brielle Cavazos WPtel: [facility]9 [phone] (30 min) Complex 03/10/2016 Patient Education: Patient Medication Summary Completed 03/10/2016 Visit Plan: Cellulitis - continue w ith oral antibiotics as previously directed, return to clinic as previously directed, call for acute change in symptoms, worsening redness, warmth, discharge. 03/06/2016 Appointment: Brielle Cavazos WPtel: [facility]6 [phone] (15 min) Moderate 03/06/2016 Patient Education: Patient Medication Summary Completed 03/06/2016 Patient Education: Obesity Completed 03/06/2016 Visit Plan: Cellulitis - continue w ith oral antibiotics as previously directed, return to clinic as previously directed, call for acute change in symptoms, worsening redness, warmth, discharge. 03/03/2016 Appointment: Brielle Cavazos WPtel: [address] [place], [place] [phone] (15 min) Moderate 03/03/2016 Patient Education: Patient [...] and 3.5. 02/07/2016 Appointment: Brielle Cavazos WPtel: [facility]5 [phone] (30 min) Complex 02/07/2016 Patient Education: Patient Medication Summary Completed 02/07/2016 Patient Education: Obesity Completed 02/07/2016 Patient Education: Hypertension Completed 02/07/2016 Appointment: Brielle Cavazos WPtel: [facility]5 [phone] (30 min) Complex 02/04/2016 Visit Plan: [...] peripheral edema. 12/13/2015 Appointment: Brielle Cavazos WPtel: [phone] (15 min) Moderate 12/13/2015 Patient Education: Patient [...] home. 12/03/2015 Appointment: Brielle Cavazos WPtel: [phone] [phone] [place] (30 min) Complex 12/03/2015 Patient Education: [...] Hypertension Completed 02/05/2015 Appointment: Valerie Pisano WPtel: [facility]3 [facility] (15 min) Moderate 01/29/2015 Visit Plan: Hypertension [...] of control. 11/20/2014 Appointment: Valerie Pisano WPtel: [facility]9 [facility] [place] (S[facility] New Patient 11/20/2014 Patient Education: Patient Medication Summary Completed 11/20/2014 Patient Education: Hypertension Completed 11/20/2014 Patient Education: Patient Medication Summary Completed 10/19/2014 Referral: [facility] WPtel: Referral Appointment Requested Referral: [facility] WPtel: 1 [facility] Referral Appointment Confirmed Instructions Comment CHECK LABS [...] twice daily. [place] - fasting labs Decrease [...] neck muscles. allergies - kenalog 40mg im [employer] - lot # [id number] expires september 2018 . Hypertension - wel [...]
--- OUTSIDE RECORDS SUMMARY | 2019-09-12 11:17 | XMS REPORT | CCD ---
Author Author Clara Pisano Organization [facility] Address [address] [place] [address] Phone Care Team Providers Care Delimber Operator Name Role Phone PP Unavailable CCM Unavailable Summary Purpose Interface Exchange Insurance Providers Payer name Policy type / Coverage type Covered democrat ID Effective Begin Date Effective End Date WPS Medicare Part B Medicare Part B [id number] 2018 Unknown [employer] Medicare Part B [id number] Unknown Family history Sister Diagnosis Age At Onset defect Unknown Breast cancer Unknown Daughter Diagnosis Age At Onset Breast cancer Unknown Mother Diagnosis Age At Onset No Family Disease Entered N/A Social History Social History Element Codes Description Effective Dates Marital status Unknown M [address] 11/20/2014 Number of children Unknown 6 11/20/2014 Employment Unknown Retir ed 11/20/[address]: 3962444 Quit over 10 years ago 1963 11/20/2014 [...] ICD-9: 401.9 ICD-10: I10 Active 04/30/2016 Unknown 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 ICD-9: V58.61 ICD-10: [...] Instructions doxycycline hyclate 100 mg capsule RxNorm: 6281295 1 Capsule(s) PO BID 10/31/2018 11/06/2018 Ac tive doxycycline hyclate 100 mg capsule RxNorm: 1218797 1 Capsule(s) PO BID 10/31/2018 10/30/2018 In active Keflex 500 mg capsule RxNorm: 493696 1 Capsule(s) PO TID 10/27/2018 10/30/2018 Inactive ceftriaxone 500 mg s olution for injection RxNorm: 2485606 Inj 10/27/2018 10/27/2018 Inactive Coumadin 4 mg tablet RxNorm: 242030 1 Tablet(s) PO daily 08/16/2018 08/10/2019 Active this is an update to her RX - she will l et you know when she needs refill triamcinolone aceton sreekanth 0.025 % topical cream RxNorm: 4612158 1 Application TOP QI D 08/16/2018 No Stop Date Active levothyroxine 125 mc g tablet RxNorm: 623577 TAKE ONE TABLET BY [facility] DAILY ON WEDNESDAY, WED, AND WEDNESDAY, AND 1/2 TABLET ON , , WED AND WEDNESDAY. TAKE ON AN EMPTY STOMACH 08/04/2018 04/30/2019 Active meclizine 25 mg tablet RxNorm: 176164 1 Tablet(s) PO TID as needed Dizziness 07/22/2018 No Stop Date Active meclizine 25 mg tablet RxNorm: 936056 1 Tablet(s) PO TID as needed Dizziness 07/19/2018 07/21/2018 In active furosemide 40 mg tablet RxNorm: 258044 1 Tablet(s) BID take 1.5 tabs twice a da y x 7 days then 1 pill daily thereafter 07/11/2018 02/05/2019 Active Coumadin 4 mg tablet RxNorm: 471453 1 Tablet(s) PO daily except 1.5 pills on WEDNESDAY AND Wednesday07/11/2018 08/15/2018 Inactive this is an update to her RX - she will let you know when she needs refill warfarin 5 mg tablet RxNorm: 987119 Tablet(s) TAKE ONE TABLET BY MOUTH DAILY EXCEPT T/TH TAKE 4 MG 04/06/2018 08/22/2019 Active diltiazem 60 mg tablet RxNorm: 060915 1/2 Tablet(s) PO QID 03/24/2018 No Stop Date Active levothyroxine 125 mc g tablet RxNorm: 720826 TAKE ONE TABLET BY MO [facility] DAILY ON WEDNESDAY, WED, AND WEDNESDAY, AND 1/2 TABLET ON , , WED AND WEDNESDAY. TAKE ON AN EMPTY STOMACH 02/02/2018 07/31/2018 Inactive Coumadin 4 mg tablet RxNorm: 541484 TAKE ONE TABLET BY MOUTH DAILY ON AND Wednesday10/14/2017 07/10/2018 Inactive nystatin 100,000 uni t/gram topical cream RxNorm: 875682 1 Application TOP TID 08/17/2017 No Stop Date Active Voltaren 1 % topical gel RxNorm: 413706 2 Gram(s) TOP TID luiz ly to shoulder and neck 08/17/2017 No Stop Date Active triamcinolone aceton sreekanth 0.025 % topical cream RxNorm: 1618412 1 Application TOP BI D 08/17/2017 08/15/2018 In active levothyroxine 125 mc g tablet RxNorm: 604264 1 Tablet(s) UD 1 pill wed/wed/wed, 1/2 pill //wed/wed take ON AN EMPTY STOMACH 08/05/2017 02/01/2018 Inactive Coumadin 4 mg tablet RxNorm: 106176 1 Tablet(s) PO Wed/urs 07/29/2017 10/13/2017 Inactive warfarin 5 mg tablet RxNorm: 396842 TAKE 1 AND 1/2 TABLETS BY MOUTH ON AND WEDNESDAY. TAKE ONLY 1 TABLET BY MOUTH ALL OTHER DAYS OF THE WEEK 07/12/2017 04/05/2018 In active furosemide 40 mg tablet RxNorm: 346264 Tablet(s) BID TAKE ONE TABLET BY MOUTH D AILY 06/15/2017 07/10/2018 Inactive Voltaren 1 % topical gel RxNorm: 428089 2 Gram(s) TOP TID luiz ly to shoulder and neck 06/15/2017 08/16/2017 Inactive Keflex 500 mg capsule RxNorm: 568546 1 Capsule(s) PO TID 04/01/2017 04/07/2017 Inactive furosemide 40 mg tablet RxNorm: 396591 TAKE ONE TABLET BY MOUTH DAILY 03/18/2017 06/14/2017 In active Claritin-D 12 Hour 5 mg-120 mg tablet,extended release RxNorm: 6222354 1 Tablet(s) PO BID 03/16/2017 05/14/2017 Inactive Lipitor 20 mg tablet RxNorm: 260039 1 Tablet(s) PO daily 02/09/2017 03/10/2017 Inactive lisinopril 2.5 mg ta blet RxNorm: 232102 1 Tablet(s) PO daily 02/09/2017 03/10/2017 Inactive Nasonex 50 mcg/actua tion Boley RxNorm: 7233986 1 Boley NASAL BID 02/09/2017 09/06/2017 Inactive levothyroxine 125 mc g tablet RxNorm: 297480 1 Tablet(s) UD 1 pill wed/wed/wed, 1/2 pill //sat/sun take ON AN EMPTY STOMACH 02/09/2017 08/04/2017 Inactive fluorouracil 5 % top ical cream RxNorm: 430397 1 Application TOP BID 02/09/2017 02/18/2017 Inactive potassium chloride E R 20 mEq tablet,extended release RxNorm: 286730 Tablet(s) TAKE ONE TABLET BY MOUTH DAILY 02/08/2017 02/02/2018 Inactive warfarin 5 mg tablet RxNorm: 282972 TAKE 1 AND 1/2 TABLETS BY MOUTH ON AND WEDNESDAY. TAKE ONLY 1 TABLET BY MOUTH ALL OTHER DAYS OF THE WEEK 12/14/2016 05/30/2017 In active potassium chloride E R 20 mEq tablet,extended release RxNorm: 288892 TAKE ONE TABLET BY MOUTH DAILY 10/29/2016 01/26/2017 Inactive warfarin 5 mg tablet RxNorm: 651561 TAKE 1 AND 1/2 TABLETS BY MOUTH ON AND WEDNESDAY. TAKE ONLY 1 TABLET BY MOUTH ALL OTHER DAYS OF THE WEEK 10/27/2016 12/13/2016 In active nystatin 100,000 uni t/gram topical cream RxNorm: 716119 1 Application TOP TID 10/13/2016 08/16/2017 In active nitrofurantoin 50 mg capsule RxNorm: 968106 1 Capsule(s) PO BID 09/04/2016 09/03/2016 Inactive nitrofurantoin macro crystal 50 mg capsule RxNorm: 421618 1 Capsule(s) PO BID 09/04/2016 09/10/2016 In active Cipro 500 mg tablet RxNorm: 146614 1 Tablet(s) PO BID 08/26/2016 10/12/2016 Inactive Zyrtec 10 mg tablet RxNorm: 0296644 1 Tablet(s) PO daily 07/31/2016 08/29/2016 Inactive prednisone 20 mg tablet RxNorm: 789779 2 Tablet(s) PO daily 07/31/2016 08/02/2016 Inactive Kenalog 40 mg/mL zohra pension for injection RxNorm: 1263456 Milliliter(s) Inj 07/22/2016 07/22/2016 In active ceftriaxone 500 mg s olution for injection RxNorm: 1915465 Inj 07/22/2016 07/22/2016 Inactive Flonase Allergy Reli ef 50 mcg/actuation nasal spray,suspension RxNorm: 4440040 1 Boley NASAL BID 07/22/2016 08/20/2016 Inactive azithromycin 250 mg tablet RxNorm: 732936 2 Tablet(s) PO on day #1, then 1 pill daily x 4 days 07/22/2016 10/12/2016 Inactive warfarin 5 mg tablet RxNorm: 903469 TAKE 1 AND 1/2 TABLETS BY MOUTH ON AND WEDNESDAY. TAKE ONLY 1 TABLET BY MOUTH ALL OTHER DAYS OF THE WEEK 07/09/2016 09/30/2016 In active levothyroxine 125 mc g tablet RxNorm: 047057 Tablet(s) TAKE ONE TA BLET BY MOUTH DAILY ON AN EMPTY STOMACH 06/23/2016 02/08/2017 Inactive levothyroxine 125 mc g tablet RxNorm: 738780 TAKE ONE TABLET BY MO [facility] DAILY ON AN EMPTY STOMACH 06/23/2016 06/22/2016 Inactive levothyroxine 125 mc g tablet RxNorm: 372363 TAKE ONE TABLET BY MO U[facility] DAILY ON AN EMPTY STOMACH 06/23/2016 08/04/2017 Inactive cetirizine 10 mg tablet RxNorm: 7745447 TAKE ONE TABLET BY MOUTH DAILY 06/16/2016 10/13/2016 In active furosemide 40 mg tablet RxNorm: 922887 Tablet(s) TAKE ONE TABLET BY MOUTH DAILY 06/05/2016 12/01/2016 In active cetirizine 10 mg tablet RxNorm: 4340845 1 Tablet(s) PO daily 05/01/2016 05/30/2016 Inactive Levaquin 250 mg tablet RxNorm: 395790 Tablet(s) PO 2 pills day one and 1 pill day 2-7 04/06/2016 07/21/2016 Inactive warfarin 5 mg tablet RxNorm: 921855 Tablet(s) 1/2 TABLETS BY MOUTH ON AND WEDNESDAY. TAKE ONLY 1 TABLET BY MOUTH ALL OTHER DAYS OF THE WEEK 03/18/2016 07/07/2016 In active triamcinolone aceton sreekanth 0.025 % topical cream RxNorm: 9213704 1 Application TOP BI D 03/10/2016 08/16/2017 In active potassium chloride E R 20 mEq tablet,extended release RxNorm: 841857 1 Tablet(s) PO daily 03/04/2016 06/01/2016 Inactive Levaquin 250 mg tablet RxNorm: 048340 Tablet(s) PO 2 pills day one and 1 pill day 2-7 03/04/2016 04/05/2016 Inactive Levaquin 250 mg tablet RxNorm: 452021 Tablet(s) PO 2 pills day one and 1 pill day 2-7 03/03/2016 03/03/2016 Inactive potassium chloride E R 20 mEq tablet,extended release RxNorm: 258950 1 Tablet(s) PO daily 03/03/2016 03/03/2016 Inactive Cipro 500 mg tablet RxNorm: 989030 1 Tablet(s) PO BID 02/20/2016 07/21/2016 Inactive Cipro 500 mg tablet RxNorm: 320844 1 Tablet(s) PO BID 02/20/2016 02/19/2016 Inactive furosemide 40 mg tablet RxNorm: 899136 TAKE ONE TABLET BY MOUTH DAILY 01/27/2016 01/26/2016 In active warfarin 5 mg tablet RxNorm: 209558 TAKE 1 AND 1/2 TABLETS BY MOUTH ON AND WEDNESDAY. TAKE ONLY 1 TABLET BY MOUTH ALL OTHER DAYS OF THE WEEK 01/27/2016 01/26/2016 In active furosemide 40 mg tablet RxNorm: 851736 TAKE ONE TABLET BY MOUTH DAILY 01/27/2016 06/04/2016 In active warfarin 5 mg tablet RxNorm: 793498 TAKE 1 AND 1/2 TABLETS BY MOUTH ON AND WEDNESDAY. TAKE ONLY 1 TABLET BY MOUTH ALL OTHER DAYS OF THE WEEK 01/27/2016 03/17/2016 In active potassium chloride E R 20 mEq tablet,extended release RxNorm: 579926 1 Tablet(s) PO daily 11/20/2015 03/02/2016 Inactive furosemide 40 mg tablet RxNorm: 461561 TAKE ONE TABLET BY MOUTH DAILY 11/12/2015 01/26/2016 In active Zovirax 5 % topical cream RxNorm: 982579 TOP QID 0 09/24/2015 09/23/2015 Inactive Zovirax 5 % topical cream RxNorm: 540479 TOP QID 0 09/24/2015 11/19/2015 Inactive nystatin 100,000 uni t/gram topical cream RxNorm: 230559 1 Application TOP TID 09/17/2015 10/12/2016 In active warfarin 5 mg tablet RxNorm: 022776 TAKE 1 AND 1/2 TABLETS BY MOUTH ON AND WEDNESDAY. TAKE ONLY 1 TABLET BY MOUTH ALL OTHER DAYS OF THE WEEK 08/19/2015 01/05/2016 In active loratadine 10 mg tablet RxNorm: 671572 1 Tablet(s) PO daily 07/30/2015 07/23/2016 Inactive loratadine 10 mg tablet RxNorm: 761661 1 Tablet(s) PO daily 07/30/2015 07/29/2015 Inactive furosemide 40 mg tablet RxNorm: 899852 TAKE ONE TABLET BY MOUTH DAILY 06/24/2015 11/11/2015 In active levothyroxine 125 mc g tablet RxNorm: 102788 1 Tablet(s) PO daily 05/31/2015 05/24/2016 Inactive furosemide 40 mg tablet RxNorm: 697717 1 Tablet(s) PO daily 04/05/2015 06/23/2015 Inactive warfarin 5 mg tablet RxNorm: 549789 TAKE 1 AND 1/2 TABLETS BY MOUTH ON AND WEDNESDAY. TAKE ONLY 1 TABLET BY MOUTH ALL OTHER DAYS OF THE WEEK 02/12/2015 07/29/2015 In active Flonase Allergy Reli ef 50 mcg/actuation nasal spray,suspension RxNorm: 2 Boley NASAL daily 02/05/2015 03/06/2015 Inactive Kenalog 40 mg/mL zohra pension for injection RxNorm: 6330308 Milliliter(s) Inj 02/05/2015 02/05/2015 In active warfarin 5 mg tablet RxNorm: 233938 Take 7.5mg (1 1/2 tablets) Wednesday and and 1 Tablet(s) PO (5mg) all other days 01/11/2015 02/09/2015 Inactive levothyroxine 125 mc g tablet RxNorm: 834842 1 Tablet(s) PO every other day 01/01/2015 05/30/2015 In active alternate with 150 levothyroxine 150 mc g tablet RxNorm: 284376 1 Tablet(s) PO every other day 01/01/2015 05/30/2015 In active alternate with 125 loratadine 10 mg tablet RxNorm: 933308 Tablet(s) PO as needed No Start Date Active Fish Oil 1,000 mg ca psule RxNorm: 1 Capsule(s) PO TID No Start Date Active magnesium 250 mg tablet RxNorm: 1 Tablet(s) PO daily No Start Date Active Vitamin D3 2,000 uni t tablet RxNorm: 183474 2 Tablet(s) PO daily No Start Date Active Fosamax 35 mg tablet RxNorm: 216454 1 Tablet(s) PO QW No Start Date Active levothyroxine 125 mc g tablet RxNorm: 744046 1 Tablet(s) PO daily No Start Date 12/31/2014 Inactive levothyroxine 150 mc g tablet RxNorm: 735133 1 Tablet(s) PO daily No Start Date 12/31/2014 Inactive diltiazem 60 mg tablet RxNorm: 152535 1 Tablet(s) PO QID No Start Date 03/23/2018 Inactive meclizine 25 mg tablet RxNorm: 273813 1 Tablet(s) PO TID as needed Dizziness No Start Date 07/18/2018 Inactive furosemide 40 mg tablet RxNorm: 429949 1 Tablet(s) PO daily No Start Date 04/04/2015 Inactive potassium chloride RxNorm: miscellaneous No Start Date 11/19/2015 Inactive Vitamin D2 oral RxNorm: 4018 oral No Start Date 05/31/2015 Inactive warfarin 5 mg tablet RxNorm: 415808 1 Tablet(s) PO daily No Start Date 01/10/2015 Inactive Coumadin 4 mg tablet RxNorm: 051309 1 Tablet(s) PO Wed/ No Start Date 07/28/2017 Inactive Medication Administered Medication Codes Instruc tions Start Date Status ceftriaxone 500 mg solution for injection RxNorm: 9413337 10/27/2018 No longer A ctive ceftriaxone 500 mg solution for injection RxNorm: 3540665 07/22/2016 No longer A ctive Kenalog 40 mg/mL suspension for injection RxNorm: 9017958 Milliliter 07/22/2016 No longer Active Kenalog 40 mg/mL suspension for injection RxNorm: 9819259 Milliliter 02/05/2015 No longer Active Immunizations Vaccine [...] skin changes ICD-10: R23.8 ICD-9: 782.9 09/27/2018 retirement (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 ICD-10: Z79.01 ICD-9: [...] 244.9 11/20/2014 ACTINIC KERATOSIS ICD-9: 702.0 11/20/2014 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 use of anticoagulant therapy ICD-9: V58.61 [...] Observation Code Item Item Code Result Date Urine Culture Ucult Comp lete >100,000 col/ml aerobic grow th sent to ref lab 10/28/2018 Pt Pwe3328 PT 24.4 seconds 10/24/2018 Pt Jaj0207 INR 2.2 10/24/2018 Pt Orm7896 Low Intensity - 1.5-2.0 10/24/2018 Pt Jun5094 Mod intensity - 2.0-3.0 10/24/2018 Pt Vgd7877 Hi intensity - 3.0-4.0 10/24/2018 Lipid Ord30 CHOL 143 mg/dL 10/24/2018 Lipid Ord30 HDL 52.0 mg/dl 10/24/2018 Lipid Ord30 TRIG 78 mg/dL 10/24/2018 Lipid Ord30 LDL 75 mg/dL 10/24/2018 Lipid Ord30 C/HDL 2.8 Ratio 10/24/2018 Comp Metabolic Xgp049 NA 142 mEq/L 10/24/2018 Comp Metabolic Yzt023 K 4.6 mEq/L 10/24/2018 Comp Metabolic Imc448 CL 107 mEq/L 10/24/2018 Comp Metabolic Rdl881 CO2 27.0 mEq/L 10/24/2018 Comp Metabolic Zen964 AN ION GAP 13 10/24/2018 Comp Metabolic Kxh180 GL UCOSE 82 mg/dL 10/24/2018 Comp Metabolic Nsm343 Cr eat 1.1 mg/dL 10/24/2018 Comp Metabolic Wzc575 eG FR 54 ml/min/1.73m2 10/24 Comp Metabolic Rya109 BUN 23 mg/dL 10/24/2018 Comp Metabolic Twz620 B/ C Ratio 21.9 Ratio 10/24/2018 Comp Metabolic Gzf861 CA LCIUM 9.0 mg/dL 10/24/2018 Comp Metabolic Jla800 AL K PHOS 64 U/L 10/24/2018 Comp Metabolic Bhq562 T(SGOT) 18 U/L 10/24/2018 Comp Metabolic Sca124 AL T(SGPT) 14 U/L 10/24/2018 Comp Metabolic Rsr154 BI LI T 0.5 mg/dL 10/24/2018 Comp Metabolic Ioy490 AL BUMIN 3.0 g/dL 10/24/2018 Comp Metabolic Nrb074 TP RO 5.2 g/dL 10/24/2018 Comp Metabolic Zgo131 GL OB 2.2 g/dL 10/24/2018 Comp Metabolic Tcd738 A/ G Ratio 1.4 Ratio 10/24/2018 Comp Metabolic Uzf362 Os mo 286 mOsmo 10/24/2018 Pt Jte9420 PT 23.8 seconds 09/29/2018 Pt Aoq5765 INR 2.2 09/29/2018 Pt Zxv6026 Low Intensity - 1.5-2.0 09/29/2018 Pt Ytg2024 Mod intensity - 2.0-3.0 09/29/2018 Pt Owj4807 Hi intensity - 3.0-4.0 09/29/2018 Pt Uwd4599 PT 19.6 seconds 09/19/2018 Pt Zdi2032 INR 1.7 09/19/2018 Pt Axm0763 Low Intensity - 1.5-2.0 09/19/2018 Pt Pdw8265 Mod intensity - 2.0-3.0 09/19/2018 Pt Hqz7799 Hi intensity - 3.0-4.0 09/19/2018 Pt Nbc5563 PT 16.8 seconds 09/12/2018 Pt Rcg0677 INR 1.4 09/12/2018 Pt Nou5887 Low Intensity - 1.5-2.0 09/12/2018 Pt Mlc3943 Mod intensity - 2.0-3.0 09/12/2018 Pt Apa5166 Hi intensity - 3.0-4.0 09/12/2018 Pt Nah2028 PT 13.1 seconds 09/07/2018 Pt Djq6966 INR 1.0 09/07/2018 Pt Ent5398 Low Intensity - 1.5-2.0 09/07/2018 Pt Vaq5934 Mod intensity - 2.0-3.0 09/07/2018 Pt Zcz1963 Hi intensity - 3.0-4.0 09/07/2018 Pt Wrm3262 PT 24.1 seconds 08/23/2018 Pt Frj5213 INR 2.2 08/23/2018 Pt Xnj9690 Low Intensity - 1.5-2.0 08/23/2018 Pt Rjr7109 Mod intensity - 2.0-3.0 08/23/2018 Pt Psv4612 Hi intensity - 3.0-4.0 08/23/2018 Pt Mlm0130 PT 30.9 seconds 08/16/2018 Pt Wcg6253 INR 3.0 08/16/2018 Pt Mmv8894 Low Intensity - 1.5-2.0 08/16/2018 Pt Kgq0827 Mod intensity - 2.0-3.0 08/16/2018 Pt Ocm4965 Hi intensity - 3.0-4.0 08/16/2018 Pt Piv7203 PT 29.5 seconds 08/01/2018 Pt Ygg8111 INR 2.8 08/01/2018 Pt Lxh1068 Low Intensity - 1.5-2.0 08/01/2018 Pt Gwq5308 Mod intensity - 2.0-3.0 08/01/2018 Pt Usa1294 Hi intensity - 3.0-4.0 08/01/2018 Pt Xof5365 PT 24.2 seconds 07/25/2018 Pt Grd4726 INR 2.2 07/25/2018 Pt Bqm2745 Low Intensity - 1.5-2.0 07/25/2018 Pt Abt0107 Mod intensity - 2.0-3.0 07/25/2018 Pt Wjz9621 Hi intensity - 3.0-4.0 07/25/2018 Pt Wdy5105 PT 38.6 seconds 07/19/2018 Pt Fmv5392 INR 4.0 07/19/2018 Pt Qyv1354 Low Intensity - 1.5-2.0 07/19/2018 Pt Ezz3078 Mod intensity - 2.0-3.0 07/19/2018 Pt Voo4427 Hi intensity - 3.0-4.0 07/19/2018 Pt Sfp7113 PT 25.7 seconds 07/11/2018 Pt Qmq5771 INR 2.4 07/11/2018 Pt Wrd9584 Low Intensity - 1.5-2.0 07/11/2018 Pt Gzb1379 Mod intensity - 2.0-3.0 07/11/2018 Pt Hwb8702 Hi intensity - 3.0-4.0 07/11/2018 Pt Ftu9886 PT 18.5 seconds 07/08/2018 Pt Bor0855 INR 1.6 07/08/2018 Pt Vux9047 Low Intensity - 1.5-2.0 07/08/2018 Pt Zzk9145 Mod intensity - 2.0-3.0 07/08/2018 Pt Ejc5090 Hi intensity - 3.0-4.0 07/08/2018 Pt Qlc9934 PT 27.3 seconds 06/29/2018 Pt Rlh2514 INR 2.6 06/29/2018 Pt Wov6126 Low Intensity - 1.5-2.0 06/29/2018 Pt Kjw2350 Mod intensity - 2.0-3.0 06/29/2018 Pt Stj0929 Hi intensity - 3.0-4.0 06/29/2018 Pt Cfk2344 PT 24.0 seconds 05/26/2018 Pt Kvq4984 INR 2.2 05/26/2018 Pt Shm1814 Low Intensity - 1.5-2.0 05/26/2018 Pt Tix6280 Mod intensity - 2.0-3.0 05/26/2018 Pt Ocm0138 Hi intensity - 3.0-4.0 05/26/2018 Tsh Ord6 [...] 29.6 pg 03/25/2018 Cbc With Differential Ord2 Dickey% 9.5 % 03/25/2018 Cbc With Differential Ord2 [...] 2.19 K/ul 03/25/2018 Cbc With Differential Ord2 Dickey ABS# 0.8 K/ul 03/25/2018 Cbc With Differential Ord2 Eos ABS# 0.3 K/ul 03/25/2018 Cbc With Differential Ord2 Baso ABS# 0.0 K/ul 03/25/2018 Lipid Ord30 CHOL 156 mg/dL 03/25/2018 Lipid Ord30 HDL 52.0 mg/dl 03/25/2018 Lipid Ord30 TRIG 98 mg/dL 03/25/2018 Lipid Ord30 LDL 84 mg/dL 03/25/2018 Lipid Ord30 C/HDL 3.0 Ratio 03/25/2018 Free T4 Lqw669 FREE T4 1.73 ng/dL 03/25/2018 Comp Metabolic Lwz699 NA 143 mEq/L 03/25/2018 Comp Metabolic Zok724 K 4.6 mEq/L 03/25/2018 Comp Metabolic Kgq213 CL 108 mEq/L 03/25/2018 Comp Metabolic Hht830 CO2 26.0 mEq/L 03/25/2018 Comp Metabolic Adj044 AN ION GAP 14 03/25/2018 Comp Metabolic Mhx683 GL UCOSE 87 mg/dL 03/25/2018 Comp Metabolic Qjy798 Cr eat 1.2 mg/dL 03/25/2018 Comp Metabolic Exh174 eG FR 48 ml/min/1.73m2 03/25 Comp Metabolic Vvx520 BUN 18 mg/dL 03/25/2018 Comp Metabolic Lix325 B/ C Ratio 15.5 Ratio 03/25/2018 Comp Metabolic Cia267 CA LCIUM 9.1 mg/dL 03/25/2018 Comp Metabolic Awo548 AL K PHOS 58 U/L 03/25/2018 Comp Metabolic Sbm750 T(SGOT) 21 U/L 03/25/2018 Comp Metabolic Utp534 AL T(SGPT) 13 U/L 03/25/2018 Comp Metabolic Lhq347 BI LI T 0.7 mg/dL 03/25/2018 Comp Metabolic Tnz235 AL BUMIN 3.2 g/dL 03/25/2018 Comp Metabolic Ggi370 TP RO 5.5 g/dL 03/25/2018 Comp Metabolic Dhu079 GL OB 2.3 g/dL 03/25/2018 Comp Metabolic Hpw444 A/ G Ratio 1.4 Ratio 03/25/2018 Comp Metabolic Wdf046 Os mo 286 mOsmo 03/25/2018 Pt Laa0379 PT 29.0 seconds 03/22/2018 Pt Nae4432 INR 2.7 03/22/2018 Pt Iqm1589 Low Intensity - 1.5-2.0 03/22/2018 Pt Yqu4147 Mod intensity - 2.0-3.0 03/22/2018 Pt Uxs6462 Hi intensity - 3.0-4.0 03/22/2018 Pt Iie1422 PT 27.1 seconds 02/25/2018 Pt Ekn8156 INR 2.5 02/25/2018 Pt Rrz4516 Low Intensity - 1.5-2.0 02/25/2018 Pt Vak0729 Mod intensity - 2.0-3.0 02/25/2018 Pt Dcl2994 Hi intensity - 3.0-4.0 02/25/2018 Pt Qtn0815 PT 26.1 seconds 01/26/2018 Pt Tuc6950 INR 2.4 01/26/2018 Pt Knm6518 Low Intensity - 1.5-2.0 01/26/2018 Pt Bta2492 Mod intensity - 2.0-3.0 01/26/2018 Pt Jju3463 Hi intensity - 3.0-4.0 01/26/2018 Pt Lpk8926 PT 22.8 seconds 12/24/2017 Pt Yky9044 INR 2.0 12/24/2017 Pt Mre5458 Low Intensity - 1.5-2.0 12/24/2017 Pt Pgw2599 Mod intensity - 2.0-3.0 12/24/2017 Pt Ywy4826 Hi intensity - 3.0-4.0 12/24/2017 Pt Tql9191 PT 29.4 seconds 11/18/2017 Pt Ejo1847 INR 2.8 11/18/2017 Pt Okg1879 Low Intensity - 1.5-2.0 11/18/2017 Pt Ufa9739 Mod intensity - 2.0-3.0 11/18/2017 Pt Xjo1881 Hi intensity - 3.0-4.0 11/18/2017 Pt Sqc7603 PT 26.6 seconds 09/13/2017 Pt Vpy7115 INR 2.4 09/13/2017 Pt Eka1604 Low Intensity - 1.5-2.0 09/13/2017 Pt Apd9702 Mod intensity - 2.0-3.0 09/13/2017 Pt Iae5998 Hi intensity - 3.0-4.0 09/13/2017 Pt Ibx9202 PT 28.2 seconds 08/10/2017 Pt Mfi0333 INR 2.6 08/10/2017 Pt Auo8170 Low Intensity - 1.5-2.0 08/10/2017 Pt Mpq4431 Mod intensity - 2.0-3.0 08/10/2017 Pt Zhb6899 Hi intensity - 3.0-4.0 08/10/2017 Pt Nei8947 PT 33.9 seconds 07/27/2017 Pt Uuj9711 INR 3.3 07/27/2017 Pt Yxo4971 Low Intensity - 1.5-2.0 07/27/2017 Pt Mmv1083 Mod intensity - 2.0-3.0 07/27/2017 Pt Yaz1890 Hi intensity - 3.0-4.0 07/27/2017 Pt Upq5561 PT 29.1 seconds 06/29/2017 Pt Zgz4051 INR 2.7 06/29/2017 Pt Qyc9174 Low Intensity - 1.5-2.0 06/29/2017 Pt Cot2235 Mod intensity - 2.0-3.0 06/29/2017 Pt Lsj3009 Hi intensity - 3.0-4.0 06/29/2017 Pt Oqy9240 PT 30.3 seconds 06/11/2017 Pt Nix0884 INR 2.9 06/11/2017 Pt Sqz9137 Low Intensity - 1.5-2.0 06/11/2017 Pt Njx6168 Mod intensity - 2.0-3.0 06/11/2017 Pt Hpg2217 Hi intensity - 3.0-4.0 06/11/2017 Pt Whr6559 PT 39.1 seconds 06/07/2017 Pt Cio5984 INR 3.9 06/07/2017 Pt Pit9605 Low Intensity - 1.5-2.0 06/07/2017 Pt Nao5943 Mod intensity - 2.0-3.0 06/07/2017 Pt Jbl0095 Hi intensity - 3.0-4.0 06/07/2017 Pt Izn1099 PT 34.2 seconds 05/26/2017 Pt Iae2769 INR 3.3 05/26/2017 Pt Ccz4546 Low Intensity - 1.5-2.0 05/26/2017 Pt Pbq9521 Mod intensity - 2.0-3.0 05/26/2017 Pt Cbd9180 Hi intensity - 3.0-4.0 05/26/2017 Comp Metabolic Evp473 NA 138 mEq/L 04/23/2017 Comp Metabolic Bgr381 K 4.2 mEq/L 04/23/2017 Comp Metabolic Zco279 CL 101 mEq/L 04/23/2017 Comp Metabolic Uhk151 CO2 28.0 mEq/L 04/23/2017 Comp Metabolic Iou977 AN ION GAP 13 04/23/2017 Comp Metabolic Wbz690 GL UCOSE 89 mg/dL 04/23/2017 Comp Metabolic Vmf898 Cr eat 1.1 mg/dL 04/23/2017 Comp Metabolic Qaa039 eG FR 51 ml/min/1.73m2 04/23 Comp Metabolic Ayy868 BUN 26 mg/dL 04/23/2017 Comp Metabolic Poq002 B/ C Ratio 23.9 Ratio 04/23/2017 Comp Metabolic Xrc011 CA LCIUM 9.4 mg/dL 04/23/2017 Comp Metabolic Vne849 AL K PHOS 95 U/L 04/23/2017 Comp Metabolic Vjq377 T(SGOT) 18 U/L 04/23/2017 Comp Metabolic Njv625 AL T(SGPT) 17 U/L 04/23/2017 Comp Metabolic Syb906 BI LI T 0.7 mg/dL 04/23/2017 Comp Metabolic Uea526 AL BUMIN 3.2 g/dL 04/23/2017 Comp Metabolic Blo779 TP RO 5.6 g/dL 04/23/2017 Comp Metabolic Tgd827 GL OB 2.4 g/dL 04/23/2017 Comp Metabolic Svd148 A/ G Ratio 1.3 Ratio 04/23/2017 Comp Metabolic Gpj082 Os mo 280 mOsmo 04/23/2017 Pt Bht3212 PT 28.6 seconds 04/23/2017 Pt Ldx7163 INR 2.7 04/23/2017 Pt Qoq7089 Low Intensity - 1.5-2.0 04/23/2017 Pt Tof6317 Mod intensity - 2.0-3.0 04/23/2017 Pt Hfl6730 Hi intensity - 3.0-4.0 04/23/2017 Pt Xyo3051 PT 24.4 seconds 03/16/2017 Pt Tey1846 INR 2.2 03/16/2017 Pt Pvi6991 Low Intensity - 1.5-2.0 03/16/2017 Pt Hqu1076 Mod intensity - 2.0-3.0 03/16/2017 Pt Pto8998 Hi intensity - 3.0-4.0 03/16/2017 Pt Loz7050 PT 28.2 seconds 02/24/2017 Pt Fvz0396 INR 2.6 02/24/2017 Pt Tvt3330 Low Intensity - 1.5-2.0 02/24/2017 Pt Fzc3195 Mod intensity - 2.0-3.0 02/24/2017 Pt Jcx6701 Hi intensity - 3.0-4.0 02/24/2017 Pt Wil8730 PT 26.8 seconds 02/08/2017 Pt Wzf9479 INR 2.5 02/08/2017 Pt Uun5683 Low Intensity - 1.5-2.0 02/08/2017 Pt Urx5283 Mod intensity - 2.0-3.0 02/08/2017 Pt Kfh0908 Hi intensity - 3.0-4.0 02/08/2017 Lipid Ord30 CHOL 150 mg/dL 01/25/2017 Lipid Ord30 HDL 55.0 mg/dl 01/25/2017 Lipid Ord30 TRIG 66 mg/dL 01/25/2017 Lipid Ord30 LDL 82 mg/dL 01/25/2017 Lipid Ord30 C/HDL 2.7 Ratio 01/25/2017 Pt Nbn2472 PT 29.9 seconds 01/25/2017 Pt Dds9304 INR 2.8 01/25/2017 Pt Mtj8625 Low Intensity - 1.5-2.0 01/25/2017 Pt Zet5367 Mod intensity - 2.0-3.0 01/25/2017 Pt Uqx8494 Hi intensity - 3.0-4.0 01/25/2017 Comp Metabolic Inn391 NA 143 mEq/L 01/25/2017 Comp Metabolic Rwx433 K 3.9 mEq/L 01/25/2017 Comp Metabolic Srp934 CL 108 mEq/L 01/25/2017 Comp Metabolic Tfz692 CO2 23.0 mEq/L 01/25/2017 Comp Metabolic Nxc135 AN ION GAP 16 01/25/2017 Comp Metabolic Tob276 GL UCOSE 80 mg/dL 01/25/2017 Comp Metabolic Gjn644 Cr eat 1.0 mg/dL 01/25/2017 Comp Metabolic Knj245 eG FR 57 ml/min/1.73m2 01/25 Comp Metabolic Khu426 BUN 25 mg/dL 01/25/2017 Comp Metabolic Tgt556 B/ C Ratio 25.0 Ratio 01/25/2017 Comp Metabolic Wzb431 CA LCIUM 8.5 mg/dL 01/25/2017 Comp Metabolic Kwt946 AL K PHOS 81 U/L 01/25/2017 Comp Metabolic Lue051 T(SGOT) 19 U/L 01/25/2017 Comp Metabolic Vip549 AL T(SGPT) 23 U/L 01/25/2017 Comp Metabolic Hrh865 BI LI T 0.5 mg/dL 01/25/2017 Comp Metabolic Vwz494 AL BUMIN 2.9 g/dL 01/25/2017 Comp Metabolic Dyr577 TP RO 5.1 g/dL 01/25/2017 Comp Metabolic Uyx285 GL OB 2.2 g/dL 01/25/2017 Comp Metabolic Ovy931 A/ G Ratio 1.3 Ratio 01/25/2017 Comp Metabolic Apn628 Os mo 288 mOsmo 01/25/2017 Cbc With [...] 30.7 pg 01/25/2017 Cbc With Differential Ord2 Dickey% 8.2 % 01/25/2017 Cbc With Differential Ord2 [...] 3.10 K/ul 01/25/2017 Cbc With Differential Ord2 Dickey ABS# 0.8 K/ul 01/25/2017 Cbc With Differential Ord2 Eos ABS# 0.4 K/ul 01/25/2017 Cbc With Differential Ord2 Baso ABS# 0.1 K/ul 01/25/2017 Free T4 Vvo051 FREE T4 2.09 ng/dL 01/25/2017 Tsh Ord6 hTSH II 0.46 uIU/mL 01/25/2017 Pt Hqy4542 PT 26.1 seconds 11/26/2016 Pt Ihb7385 INR 2.6 11/26/2016 Pt Qit3474 Low Intensity - 1.5-2.0 11/26/2016 Pt Efs9860 Mod intensity - 2.0-3.0 11/26/2016 Pt Knq6882 Hi intensity - 3.0-4.0 11/26/2016 Pt Xak8882 PT 26.2 seconds 10/29/2016 Pt Cyt1947 INR 2.6 10/29/2016 Pt Grt8612 Low Intensity - 1.5-2.0 10/29/2016 Pt Kxw2802 Mod intensity - 2.0-3.0 10/29/2016 Pt Iwl3046 Hi intensity - 3.0-4.0 10/29/2016 Pt Tht7160 PT 20.8 seconds 10/13/2016 Pt Fij0072 INR 1.9 10/13/2016 Pt Pvw5803 Low Intensity - 1.5-2.0 10/13/2016 Pt Tkw9343 Mod intensity - 2.0-3.0 10/13/2016 Pt Ghj9401 Hi intensity - 3.0-4.0 10/13/2016 Pt Brk9653 PT 26.5 seconds 10/01/2016 Pt Ryy1200 INR 2.6 10/01/2016 Pt Pdk4466 Low Intensity - 1.5-2.0 10/01/2016 Pt Xju6641 Mod intensity - 2.0-3.0 10/01/2016 Pt Zzl9895 Hi intensity - 3.0-4.0 10/01/2016 Pt Lzy0228 PT 24.6 seconds 09/14/2016 Pt Ndo5926 INR 2.4 09/14/2016 Pt Qel0551 Low Intensity - 1.5-2.0 09/14/2016 Pt Qsx2011 Mod intensity - 2.0-3.0 09/14/2016 Pt Uks9823 Hi intensity - 3.0-4.0 09/14/2016 Pt Gch5201 PT 18.0 seconds 09/07/2016 Pt Jgu7382 INR 1.6 09/07/2016 Pt Zor4374 Low Intensity - 1.5-2.0 09/07/2016 Pt Pwi2550 Mod intensity - 2.0-3.0 09/07/2016 Pt Yga6980 Hi intensity - 3.0-4.0 09/07/2016 Pt Dnv7929 PT 23.7 seconds 08/12/2016 Pt Pvo9740 INR 2.2 08/12/2016 Pt Zfo7299 Low Intensity - 1.5-2.0 08/12/2016 Pt Vts9016 Mod intensity - 2.0-3.0 08/12/2016 Pt Hmq0681 Hi intensity - 3.0-4.0 08/12/2016 Pt Kpv6545 PT 21.6 seconds 07/27/2016 Pt Jej3057 INR 2.0 07/27/2016 Pt Zcg8877 Low Intensity - 1.5-2.0 07/27/2016 Pt Vto4692 Mod intensity - 2.0-3.0 07/27/2016 Pt Uil4240 Hi intensity - 3.0-4.0 07/27/2016 Pt Fdf2702 PT 26.0 seconds 06/15/2016 Pt Rat3932 INR 2.5 06/15/2016 Pt Oqi0869 Low Intensity - 1.5-2.0 06/15/2016 Pt Vtm3004 Mod intensity - 2.0-3.0 06/15/2016 Pt Yvq8561 Hi intensity - 3.0-4.0 06/15/2016 Pt Orv6981 PT 18.8 seconds 06/01/2016 Pt Mrd0144 INR 1.7 06/01/2016 Pt Kag5910 Low Intensity - 1.5-2.0 06/01/2016 Pt Bwk7061 Mod intensity - 2.0-3.0 06/01/2016 Pt Wml2889 Hi intensity - 3.0-4.0 06/01/2016 Pt Bpl5082 PT 20.8 seconds 05/12/2016 Pt Yll5971 INR 1.9 05/12/2016 Pt Dbc9656 Low Intensity - 1.5-2.0 05/12/2016 Pt Qmv2211 Mod intensity - 2.0-3.0 05/12/2016 Pt Pok4591 Hi intensity - 3.0-4.0 05/12/2016 Pt Qpb5096 PT 24.5 seconds 04/10/2016 Pt Gmo6171 INR 2.4 04/10/2016 Pt Bco1260 Low Intensity - 1.5-2.0 04/10/2016 Pt Aft1209 Mod intensity - 2.0-3.0 04/10/2016 Pt Aqm9525 Hi intensity - 3.0-4.0 04/10/2016 Pt Mrs0904 PT 26.4 seconds 03/10/2016 Pt Fpw5338 INR 2.6 03/10/2016 Pt Roo6568 Low Intensity - 1.5-2.0 03/10/2016 Pt Vib0962 Mod intensity - 2.0-3.0 03/10/2016 Pt Ntq2807 Hi intensity - 3.0-4.0 03/10/2016 Pt Edp1758 PT 24.9 seconds 03/06/2016 Pt Xmv9670 INR 2.4 03/06/2016 Pt Pau8510 Low Intensity - 1.5-2.0 03/06/2016 Pt Bur5114 Mod intensity - 2.0-3.0 03/06/2016 Pt Xuq0367 Hi intensity - 3.0-4.0 03/06/2016 Pt Lfv1020 PT 21.9 seconds 02/25/2016 Pt Ltg1171 INR 2.0 02/25/2016 Pt Hrs3847 Low Intensity - 1.5-2.0 02/25/2016 Pt Fkr3125 Mod intensity - 2.0-3.0 02/25/2016 Pt Fdf2044 Hi intensity - 3.0-4.0 02/25/2016 Pt Eqt3605 PT 21.8 seconds 02/21/2016 Pt Rnp7651 INR 2.0 02/21/2016 Pt Nlj0385 Low Intensity - 1.5-2.0 02/21/2016 Pt Odw3123 Mod intensity - 2.0-3.0 02/21/2016 Pt Zbb5196 Hi intensity - 3.0-4.0 02/21/2016 Culture Urine [id number] URI NE CULTURE SEE NOTES 02/20/2016 Culture Urine [id number] Con tinued Results 02/20/2016 Urine Culture Ucult [...] 29.2 pg 02/14/2016 Cbc With Differential Ord2 Dickey% 9.3 % 02/14/2016 Cbc With Differential Ord2 [...] 2.55 K/ul 02/14/2016 Cbc With Differential Ord2 Dickey ABS# 0.8 K/ul 02/14/2016 Cbc With Differential Ord2 Eos ABS# 0.4 K/ul 02/14/2016 Cbc With Differential Ord2 Baso ABS# 0.1 K/ul 02/14/2016 Tsh Ord6 hTSH II 0.80 uIU/mL 02/14/2016 Pt Rpb4169 PT 27.1 seconds 02/14/2016 Pt Tlm7642 INR 2.7 02/14/2016 Pt Mnp7110 Low Intensity - 1.5-2.0 02/14/2016 Pt Hpr1153 Mod intensity - 2.0-3.0 02/14/2016 Pt Frg8985 Hi intensity - 3.0-4.0 02/14/2016 Free T4 Keg812 FREE T4 1.87 ng/dL 02/14/2016 Comp Metabolic Qny660 NA 139 mEq/L 02/14/2016 Comp Metabolic Xth539 K 3.8 mEq/L 02/14/2016 Comp Metabolic Tiz542 CL 103 mEq/L 02/14/2016 Comp Metabolic Clp427 CO2 27.0 mEq/L 02/14/2016 Comp Metabolic Ffo086 AN ION GAP 13 02/14/2016 Comp Metabolic Nqv891 GL UCOSE 91 mg/dL 02/14/2016 Comp Metabolic Pgw444 Cr eat 1.0 mg/dL 02/14/2016 Comp Metabolic Bmy817 eG FR 58 ml/min/1.73m2 02/13 Comp Metabolic Opj765 BUN 16 mg/dL 02/14/2016 Comp Metabolic Smv305 B/ C Ratio 16.2 Ratio 02/14/2016 Comp Metabolic Upe867 CA LCIUM 9.0 mg/dL 02/14/2016 Comp Metabolic Fil172 AL K PHOS 88 U/L 02/14/2016 Comp Metabolic Aqf588 T(SGOT) 17 U/L 02/14/2016 Comp Metabolic Nib241 AL T(SGPT) 12 U/L 02/14/2016 Comp Metabolic Gax049 BI LI T 0.6 mg/dL 02/14/2016 Comp Metabolic Rpi236 AL BUMIN 3.2 g/dL 02/14/2016 Comp Metabolic Ilp772 TP RO 5.8 g/dL 02/14/2016 Comp Metabolic Haz812 GL OB 2.6 g/dL 02/14/2016 Comp Metabolic Qxb228 A/ G Ratio 1.3 Ratio 02/14/2016 Comp Metabolic Mar113 Os mo 278 mOsmo 02/14/2016 Pt Qys4260 PT 34.6 seconds 02/06/2016 Pt Dtg6165 INR 3.7 02/06/2016 Pt Tgq1407 Low Intensity - 1.5-2.0 02/06/2016 Pt Lhc9352 Mod intensity - 2.0-3.0 02/06/2016 Pt Zok2328 Hi intensity - 3.0-4.0 02/06/2016 Pt Oww4157 PT 33.3 seconds 01/23/2016 Pt Jof0875 INR 3.5 01/23/2016 Pt Nwo3439 Low Intensity - 1.5-2.0 01/23/2016 Pt Bch5155 Mod intensity - 2.0-3.0 01/23/2016 Pt Cem9745 Hi intensity - 3.0-4.0 01/23/2016 Pt Paf5529 PT 30.5 seconds 12/31/2015 Pt Bsd0998 INR 3.2 12/31/2015 Pt Tmt0700 Low Intensity - 1.5-2.0 12/31/2015 Pt Mjc6597 Mod intensity - 2.0-3.0 12/31/2015 Pt Whj6191 Hi intensity - 3.0-4.0 12/31/2015 Pt Vqc5220 PT 35.6 seconds 12/25/2015 Pt Xos6710 INR 3.9 12/25/2015 Pt Oqg5438 Low Intensity - 1.5-2.0 12/25/2015 Pt Jpa0785 Mod intensity - 2.0-3.0 12/25/2015 Pt Igm9647 Hi intensity - 3.0-4.0 12/25/2015 Pt Lqk3184 PT 30.8 seconds 11/21/2015 Pt Zqy6250 INR 3.2 11/21/2015 Pt Foa7900 Low Intensity - 1.5-2.0 11/21/2015 Pt Rla6671 Mod intensity - 2.0-3.0 11/21/2015 Pt Zlk8691 Hi intensity - 3.0-4.0 11/21/2015 Uric Acid [...] 30.0 pg 11/20/2015 Cbc With Differential Ord2 Dickey% 8.1 % 11/20/2015 Cbc With Differential Ord2 [...] 2.51 K/ul 11/20/2015 Cbc With Differential Ord2 Dickey ABS# 0.9 K/ul 11/20/2015 Cbc With Differential Ord2 Eos ABS# 0.3 K/ul 11/20/2015 Cbc With Differential Ord2 Baso ABS# 0.0 K/ul 11/20/2015 Comp Metabolic Coa418 NA 137 mEq/L 10/22/2015 Comp Metabolic Oql570 K 3.9 mEq/L 10/22/2015 Comp Metabolic Kys951 CL 100 mEq/L 10/22/2015 Comp Metabolic Vhz253 CO2 31.0 mEq/L 10/22/2015 Comp Metabolic Elu386 AN ION GAP 10 10/22/2015 Comp Metabolic Ynx630 GL UCOSE 94 mg/dL 10/22/2015 Comp Metabolic Ddx954 Cr eat 1.0 mg/dL 10/22/2015 Comp Metabolic Mky035 eG FR 55 ml/min/1.73m2 10/21 Comp Metabolic Ogf992 BUN 19 mg/dL 10/22/2015 Comp Metabolic Hqb391 B/ C Ratio 18.3 Ratio 10/22/2015 Comp Metabolic Kjy107 CA LCIUM 8.8 mg/dL 10/22/2015 Comp Metabolic Vbd899 AL K PHOS 83 U/L 10/22/2015 Comp Metabolic Blj845 T(SGOT) 15 U/L 10/22/2015 Comp Metabolic Rnu213 AL T(SGPT) 13 U/L 10/22/2015 Comp Metabolic Gze933 BI LI T 0.9 mg/dL 10/22/2015 Comp Metabolic Iid536 AL BUMIN 2.8 g/dL 10/22/2015 Comp Metabolic Muu358 TP RO 5.4 g/dL 10/22/2015 Comp Metabolic Tac025 GL OB 2.6 g/dL 10/22/2015 Comp Metabolic Cel225 A/ G Ratio 1.1 Ratio 10/22/2015 Comp Metabolic Hbv852 Os mo 276 mOsmo 10/22/2015 Bili D Ord93 BILI D 0.1 mg/dL 10/22/2015 Bili D Ord93 BILI I 0.8 mg/dL 10/22/2015 Pt Xuf4778 PT 22.8 seconds 10/22/2015 Pt Dxv5810 INR 2.1 10/22/2015 Pt Iaa2614 Low Intensity - 1.5-2.0 10/22/2015 Pt Zmc4785 Mod intensity - 2.0-3.0 10/22/2015 Pt Nbs3553 Hi intensity - 3.0-4.0 10/22/2015 Pt Hvn0525 PT 28.0 seconds 09/16/2015 Pt Bsu4681 INR 2.7 09/16/2015 Pt Jvm2364 Low Intensity - 1.5-2.0 09/16/2015 Pt Epb2791 Mod intensity - 2.0-3.0 09/16/2015 Pt Cgr2734 Hi intensity - 3.0-4.0 09/16/2015 Tsh Ord6 hTSH II 1.40 uIU/mL 09/16/2015 Free T4 Avz912 FREE T4 1.73 ng/dL 09/16/2015 Lipid Ord30 CHOL 169 mg/dL 09/16/2015 Lipid Ord30 HDL 66.0 mg/dl 09/16/2015 Lipid Ord30 TRIG 78 mg/dL 09/16/2015 Lipid Ord30 LDL 87 mg/dL 09/16/2015 Lipid Ord30 C/HDL 2.6 Ratio 09/16/2015 Pt Axl6687 PT 26.6 seconds 08/21/2015 Pt Liz4894 INR 2.6 08/21/2015 Pt Qmy9425 Low Intensity - 1.5-2.0 08/21/2015 Pt Zhd4557 Mod intensity - 2.0-3.0 08/21/2015 Pt Fcv5227 Hi intensity - 3.0-4.0 08/21/2015 Comp Metabolic Uol008 NA 141 mEq/L 08/08/2015 Comp Metabolic Hie512 K 3.3 mEq/L 08/08/2015 Comp Metabolic Htn669 CL 102 mEq/L 08/08/2015 Comp Metabolic Ynr048 CO2 31.0 mEq/L 08/08/2015 Comp Metabolic Yty262 AN ION GAP 11 08/08/2015 Comp Metabolic Rxo270 GL UCOSE 83 mg/dL 08/08/2015 Comp Metabolic Lct981 Cr eat 1.0 mg/dL 08/08/2015 Comp Metabolic Cdk503 eG FR 55 ml/min/1.73m2 08/08 Comp Metabolic Nas889 BUN 19 mg/dL 08/08/2015 Comp Metabolic Wle636 B/ C Ratio 18.3 Ratio 08/08/2015 Comp Metabolic Fgg376 CA LCIUM 8.9 mg/dL 08/08/2015 Comp Metabolic Vev319 AL K PHOS 84 U/L 08/08/2015 Comp Metabolic Dmp612 T(SGOT) 20 U/L 08/08/2015 Comp Metabolic Hog849 AL T(SGPT) 18 U/L 08/08/2015 Comp Metabolic Snq880 BI LI T 0.6 mg/dL 08/08/2015 Comp Metabolic Ubo035 AL BUMIN 3.3 g/dL 08/08/2015 Comp Metabolic Mdg100 TP RO 5.9 g/dL 08/08/2015 Comp Metabolic Zvx654 GL OB 2.6 g/dL 08/08/2015 Comp Metabolic Tgy103 A/ G Ratio 1.3 Ratio 08/08/2015 Comp Metabolic Wvj989 Os mo 283 mOsmo 08/08/2015 Cbc With [...] 30.0 pg 08/08/2015 Cbc With Differential Ord2 Dickey% 8.2 % 08/08/2015 Cbc With Differential Ord2 [...] 2.90 K/ul 08/08/2015 Cbc With Differential Ord2 Dickey ABS# 0.9 K/ul 08/08/2015 Cbc With Differential [...] Ord93 BILI I 0.5 mg/dL 08/08/2015 Pt Rvc3508 PT 31.8 seconds 08/05/2015 Pt Ixr8986 INR 3.2 08/05/2015 Pt Lqq2509 Low Intensity - 1.5-2.0 08/05/2015 Pt Tvo3927 Mod intensity - 2.0-3.0 08/05/2015 Pt Oay0668 Hi intensity - 3.0-4.0 08/05/2015 Pt Rit9630 PT 27.4 seconds 06/27/2015 Pt Gvz0969 INR 2.6 06/27/2015 Pt Niv2823 Low Intensity - 1.5-2.0 06/27/2015 Pt Jdf9510 Mod intensity - 2.0-3.0 06/27/2015 Pt Dao8310 Hi intensity - 3.0-4.0 06/27/2015 Tsh Ord6 [...] Ord2 RDW 15.1 % 05/31/2015 Free T4 Quj301 FREE T4 1.89 ng/dL 05/31/2015 Comp Metabolic Vmi975 NA 140 mEq/L 05/31/2015 Comp Metabolic Mlc407 K 3.3 mEq/L 05/31/2015 Comp Metabolic Fcc000 CL 99 mEq/L 05/31/2015 Comp Metabolic Uzx063 CO2 30.0 mEq/L 05/31/2015 Comp Metabolic Txf449 AN ION GAP 14 05/31/2015 Comp Metabolic Rea081 GL UCOSE 70 mg/dL 05/31/2015 Comp Metabolic Olj810 Cr eat 1.0 mg/dL 05/31/2015 Comp Metabolic Rcd993 eG FR 55 ml/min/1.73m2 05/31 Comp Metabolic Jei601 BUN 23 mg/dL 05/31/2015 Comp Metabolic Rqx244 B/ C Ratio 22.1 Ratio 05/31/2015 Comp Metabolic Uyu893 CA LCIUM 8.9 mg/dL 05/31/2015 Comp Metabolic Quu121 AL K PHOS 86 U/L 05/31/2015 Comp Metabolic Uvd022 T(SGOT) 28 U/L 05/31/2015 Comp Metabolic Fyn215 AL T(SGPT) 30 U/L 05/31/2015 Comp Metabolic Mai025 BI LI T 0.4 mg/dL 05/31/2015 Comp Metabolic Gee958 AL BUMIN 3.3 g/dL 05/31/2015 Comp Metabolic Fur404 TP RO 6.0 g/dL 05/31/2015 Comp Metabolic Coj329 GL OB 2.7 g/dL 05/31/2015 Comp Metabolic Xyg889 A/ G Ratio 1.2 Ratio 05/31/2015 Comp Metabolic Ffl439 Os mo 282 mOsmo 05/31/2015 Pt Zdj7335 PT 23.3 seconds 04/15/2015 Pt Swo6515 INR 2.2 04/15/2015 Pt Zrn6391 Low Intensity - 1.5-2.0 04/15/2015 Pt Ord5431 Mod intensity - 2.0-3.0 04/15/2015 Pt Fpu1163 Hi intensity - 3.0-4.0 04/15/2015 Pt Wrg3181 PT 19.5 seconds 04/04/2015 Pt Xls5865 INR 1.7 04/04/2015 Pt Bfy0545 Low Intensity - 1.5-2.0 04/04/2015 Pt Knb9196 Mod intensity - 2.0-3.0 04/04/2015 Pt Ila0741 Hi intensity - 3.0-4.0 04/04/2015 Pt Nrh6477 PT 39.8 seconds 04/01/2015 Pt Rja5643 INR 4.3 04/01/2015 Pt Kst9829 Low Intensity - 1.5-2.0 04/01/2015 Pt Ftr3587 Mod intensity - 2.0-3.0 04/01/2015 Pt Xtd7884 Hi intensity - 3.0-4.0 04/01/2015 Metabolic Ord15 [...] Metabolic Ord15 CALCIUM 8.7 mg/dL 02/28/2015 Pt Ynb7038 PT 31.4 seconds 02/28/2015 Pt Ppv5910 INR 3.2 02/28/2015 Pt Dpd1815 Low Intensity - 1.5-2.0 02/28/2015 Pt Esp2957 Mod intensity - 2.0-3.0 02/28/2015 Pt Obw8748 Hi intensity - 3.0-4.0 02/28/2015 Pt Kre0652 PT 23.2 seconds 01/18/2015 Pt Agx2764 INR 2.1 01/18/2015 Pt Mdl3592 Low Intensity - 1.5-2.0 01/18/2015 Pt Rbr5267 Mod intensity - 2.0-3.0 01/18/2015 Pt Cgc7956 Hi intensity - 3.0-4.0 01/18/2015 Pt Oby9151 PT 18.2 seconds 01/10/2015 Pt Vfq8324 INR 1.6 01/10/2015 Pt Plr7633 Low Intensity - 1.5-2.0 01/10/2015 Pt Kfk8466 Mod intensity - 2.0-3.0 01/10/2015 Pt Pgx2253 Hi intensity - 3.0-4.0 01/10/2015 Review of [...] 10/27/2018 URINALYSIS NONAUTO W /O SCOPE CPT-4: 32853 10/27/2018 ADMIN INFLUENZA VIRU S VAC CPT-4: G0008 03/24/2018 ADMIN PNEUMOCOCCAL V ACCINE SNOMED CT: 80603747 CPT-4: G0009 03/24/2018 FLU VACC PRSV FREE I NC ANTIG Formatting Model/CDA Sections, Assigned to/Dorothea Tan CPT-4: 65572Gxcnmyy 03/24/2018 Pneumococcal Polysac charide Vaccine, 23-Valent, Ad CPT-4: 56506 03/24/2018 TRIAMCINOLONE ACET I [place] NOS CPT-4: J3301 06/15/2017 THER/PROPH/DIAG INJ SC/IM CPT-4: 31923 06/15/2017 ADMIN PNEUMOCOCCAL V ACCINE SNOMED CT: 54962500 CPT-4: G0009 03/16/2017 ADMIN INFLUENZA VIRU S VAC CPT-4: G0008 03/16/2017 FLU VAC NO PRSV 4 VA L 3 YRS+ CPT-4: 80582 03/16/2017 PNEUMOCOCCAL VACC [address]: 07591557 CPT-4: 84276 03/16/2017 URINALYSIS NONAUTO W /O SCOPE CPT-4: 83260 08/26/2016 THER/PROPH/DIAG INJ SC/IM CPT-4: 27695 07/22/2016 TRIAMCINOLONE ACET I [place] NOS CPT-4: J3301 07/22/2016 ROCEPHIN, PER 250 MG CPT-4: J0696 07/22/2016 TRIAMCINOLONE ACET I [place] NOS CPT-4: J3301 02/05/2015 Vital Signs Date Vital 10/27/2018 Blood Pressure 1: 120/74 Code: 8480-6 BMI: 32.4 Code: 88433-3 Heart Rate 1: 65 bpm Height: 5'7" SpO2: 97% Weight: 207 lbs 09/27/2018 Blood Pressure 1: 128/74 Code: 8480-6 BMI: 32.4 Code: 01695-0 Heart Rate 1: 92 bpm Height: 5'7" SpO2: 97% Weight: 207 lbs 08/16/2018 Blood Pressure 1: 104/66 Code: 8480-6 BMI: 32.3 Code: 40172-5 Heart Rate 1: 94 bpm Height: 5'7" SpO2: 96% Weight: 206 lbs 07/11/2018 Blood Pressure 1: 102/68 Code: 8480-6 BMI: 34.5 Code: 87909-6 Heart Rate 1: 101 bpm Height: 5'7" SpO2: 98% Weight: 220 lbs 03/24/2018 Blood Pressure 1: 130/72 Code: 8480-6 BMI: 33.4 Code: 46731-0 Heart Rate 1: 82 bpm Height: 5'7" SpO2: 93% Weight: 213 lbs 11/18/2017 Blood Pressure 1: 128/70 Code: 8480-6 BMI: 33.6 Code: 36972-5 Heart Rate 1: 98 bpm Height: 5'7" SpO2: 97% Weight: 214 lbs 8 oz 09/30/2017 Blood Pressure 1: 100/50 Code: 8480-6 BMI: 34.0 Code: 18701-3 Heart Rate 1: 66 bpm Height: 5'7" SpO2: 96% Weight: 217 lbs 08/17/2017 Blood Pressure 1: 104/60 Code: 8480-6 BMI: 33.7 Code: 18545-7 Heart Rate 1: 99 bpm Height: 5'7" SpO2: 97% Weight: 215 lbs 06/15/2017 Blood Pressure 1: 120/64 Code: 8480-6 BMI: 33.5 Code: 19076-5 Heart Rate 1: 91 bpm Height: 5'7" SpO2: 94% Weight: 214 lbs 04/01/2017 Blood Pressure 1: 110/68 Code: 8480-6 BMI: 154.4 Code: 75417-2 Heart Rate 1: 66 bpm Height: 2'7" SpO2: 95% Weight: 211 lbs 03/16/2017 Blood Pressure 1: 130/72 Code: 8480-6 BMI: 33.0 Code: 80511-0 Heart Rate 1: 95 bpm Height: 5'7" SpO2: 97% Weight: 211 lbs 02/09/2017 Blood Pressure 1: 120/70 Code: 8480-6 BMI: 32.9 Code: 43345-9 Heart Rate 1: 78 bpm Height: 5'7" SpO2: 96% Weight: 210 lbs 10/13/2016 Blood Pressure 1: 118/76 Code: 8480-6 BMI: 32.6 Code: 09955-9 Heart Rate 1: 97 bpm Height: 5'7" SpO2: 98% Weight: 208 lbs 07/31/2016 Blood Pressure 1: 110/64 Code: 8480-6 BMI: 32.1 Code: 04122-5 Heart Rate 1: 79 bpm Height: 5'7" SpO2: 94% Weight: 205 lbs 07/22/2016 Blood Pressure 1: 108/74 Code: 8480-6 BMI: 32.1 Code: 30146-1 Heart Rate 1: 71 bpm Height: 5'7" SpO2: 97% Temperature: 36.9 (C ) / 98.4 (F) Weight: 205 lbs 05/01/2016 Blood Pressure 1: 120/72 Code: 8480-6 BMI: 32.7 Code: 31575-8 Heart Rate 1: 75 bpm Height: 5'7" SpO2: 94% Weight: 209 lbs 04/06/2016 Blood Pressure 1: 106/62 Code: 8480-6 BMI: 32.7 Code: 05926-3 Heart Rate 1: 83 bpm Height: 5'7" SpO2: 97% Weight: 209 lbs 03/06/2016 Blood Pressure 1: 11268 Code: 8480-6 BMI: 32.7 Code: 02402-2 Heart Rate 1: 90 bpm Height: 5'7" SpO2: 97% Weight: 209 lbs 03/03/2016 Blood Pressure 1: 120/62 Code: 8480-6 BMI: 32.7 Code: 23060-8 Heart Rate 1: 92 bpm Height: 5'7" SpO2: 98% Weight: 209 lbs 02/07/2016 Blood Pressure 1: 110/64 Code: 8480-6 BMI: 32.7 Code: 39372-3 Heart Rate 1: 87 bpm Height: 5'7" SpO2: 97% Weight: 209 lbs 12/13/2015 Blood Pressure 1: 110/64 Code: 8480-6 BMI: 33.5 Code: 03168-8 Heart Rate 1: 90 bpm Height: 5'7" SpO2: 97% Weight: 214 lbs 12/03/2015 Blood Pressure 1: 132/76 Code: 8480-6 BMI: 33.4 Code: 78997-4 Heart Rate 1: 82 bpm Height: 5'7" SpO2: 99% Weight: 213 lbs 11/20/2015 Blood Pressure 1: 108/68 Code: 8480-6 BMI: 32.4 Code: 48752-5 Heart Rate 1: 77 bpm Height: 5'7" SpO2: 97% Weight: 207 lbs 09/17/2015 Blood Pressure 1: 122/76 Code: 8480-6 BMI: 33.0 Code: 45828-9 Heart Rate 1: 91 bpm Height: 5'7" SpO2: 97% Weight: 211 lbs 05/31/2015 Blood Pressure 1: 128/82 Code: 8480-6 BMI: 33.4 Code: 68133-5 Heart Rate 1: 98 bpm Height: 5'7" SpO2: 99% Weight: 213 lbs 02/05/2015 Blood Pressure 1: 128/80 Code: 8480-6 BMI: 32.6 Code: 91799-2 Heart Rate 1: 86 bpm Height: 5'7" SpO2: 97% Weight: 208 lbs 11/20/2014 Blood Pressure 1: 128/90 Code: 8480-6 BMI: 30.9 Code: 36334-9 Heart Rate 1: 94 bpm Height: 5'7" [...] Findings Denies fever 05/31/2015 None hypothyroid Quality 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 management specialist silvestre 02/05/2015 None hypothyroid Pertinent Findings coarse [...] Denies extremity weakness 11/20/2014 None hypothyroid Quality order management specialist silvestre 11/20/2014 None hypothyroid Pertinent Findings coarse hair 11/20/2014 None hypothyroid Pertinent Findings dry skin 11/20/2014 None hypothyroid Pertinent Findings hair loss 11/20/2014 None edema Quality intermitte nt 11/20/2014 None edema Location on both l egs 11/20/2014 None edema Location on both a nkles 11/20/2014 None Advance Directives No Advance Directive data Encounters Encounter Performer Loca tion Codes Date ([id number]) [id number] EST. P ATIENT, LEVEL III Diagnosis: Urinary tract infection, site not specified[ICD10: N39.0] Brielle Pisano MD, [facility] CPT-4: 70811 10/27/2018 ([id number]) [id number] EST. P ATSHERITA, LEVEL IV Diagnosis: Atrophy of thyroid (acquired)[ICD10: E03.4] Diagnosis: Essential (primary) hypertension[ICD10: I10] Diagnosis: Other allergic rhinitis[ICD10: J30.89] Diagnosis: Other skin changes[ICD10: R23.8] Diagnosis: Chronic atrial fibrillation[ICD10: I48.2] Diagnosis: retirement (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[ICD10: Z79.01] Valerie Pisano MD, C CPT-4: 31587 09/27/2018 ([id number]) [id number] EST. P ATIENT, LEVEL IV Diagnosis: Essential (primary) hypertension[ICD10: I10] Diagnosis: Atrophy of thyroid (acquired)[ICD10: E03.4] Diagnosis: Sebaceous cyst[ICD10: L72.3] Diagnosis: Chronic atrial fibrillation[ICD10: I48.2] Diagnosis: retirement (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[ICD10: Z79.01] Valerie Pisano MD, C CPT-4: 33052 08/16/2018 ([id number]) 34136 EST. P ATIENT, LEVEL IV Diagnosis: Atrophy of thyroid (acquired)[ICD10: E03.4] Diagnosis: Essential (primary) hypertension[ICD10: I10] Diagnosis: Other fatigue[ICD10: R53.83] Diagnosis: Localized edema[ICD10: R60.0] Valerie Pisano MD, [facility] CPT-4: 72794 07/11/2018 ([id number]) 06484 EST. P ATIENT, LEVEL IV Diagnosis: Essential (primary) hypertension[ICD10: I10] Diagnosis: Atrophy of thyroid (acquired)[ICD10: E03.4] Diagnosis: Chronic atrial fibrillation[ICD10: I48.2] Valerie Pisano MD, C CPT-4: 09824 03/24/2018 ([id number]) [id number] EST. P ATIENT, LEVEL IV Diagnosis: Essential (primary) hypertension[ICD10: I10] Diagnosis: Atrophy of thyroid (acquired)[ICD10: E03.4] Diagnosis: Chronic atrial fibrillation[ICD10: I48.2] Valerie Pisano MD, C CPT-4: 97997 11/18/2017 42849 EST. PATIENT, LEVEL IV Diagnosis: Localized edema[ICD10: R60.0] Roxie Pisano MD, [facility] CPT-4: 81864 09/30/2017 ([id number]) 12961 EST. P ATIENT, LEVEL III Diagnosis: Essential (primary) hypertension[ICD10: I10] Valerie Pisano MD, C CPT-4: 10231 08/17/2017 ([id number]) 31515 EST. P ATIENT, LEVEL IV Diagnosis: Essential (primary) hypertension[ICD10: I10] Diagnosis: Atrophy of thyroid (acquired)[ICD10: E03.4] Diagnosis: Chronic atrial fibrillation[ICD10: I48.2] Diagnosis: Cervicalgia[ICD10: M54.2] Diagnosis: Other muscle spasm[ICD10: M62.838] Valerie Pisano MD, [facility] CPT- 4: 80206 06/15/2017 06384 EST. PATIENT, LEVEL III Diagnosis: Laceration without foreign body of other finger without damage to nail, initial encounter[ICD10: S61.218A] Roxie Pisano MD, [facility] CPT-4: 94640 04/01/2017 ([id number]) 41755 EST. 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 PATIENT, LEVEL III Diagnosis: Other acute sinusitis[ICD10: J01.80] Diagnosis: Other allergic rhinitis[ICD10: J30.89] Roxie Pisano MD, [facility] CPT-4: 97617 07/31/2016 ([id number]) 42350 EST. P ATIENT, LEVEL III Diagnosis: Acute recurrent maxillary sinusitis[ICD10: J01.01] Valerie Pisano MD, [facility] CPT-4: 94196 07/22/2016 40542 EST. PATIENT, LEVEL IV Diagnosis: Essential (primary) hypertension[ICD10: I10] Diagnosis: Other allergic rhinitis[ICD10: J30.89] Diagnosis: Localized edema[ICD10: R60.0] Roxie Pisano MD, [facility] CPT-4: 22508 05/01/2016 81946 EST. PATIENT, LEVEL III Diagnosis: Cellulitis of left lower limb[ICD10: L03.116] Diagnosis: Localized edema[ICD10: R60.0] Roxie Pisano MD, [facility] CPT-4: 33583 04/06/2016 ([id number]) Miscellaneou s no charge Diagnosis: Cellulitis of left lower limb[ICD10: L03.116] Diagnosis: Localized edema[ICD10: R60.0] Roxie Pisano MD, [facility] CPT-4: 74337 03/10/2016 ([id number]) Miscellaneou s no charge Diagnosis: Cellulitis of left lower limb[ICD10: L03.116] Roxie Pisano MD, [facility] CPT-4: 06073 03/06/2016 99722 EST. PATIENT, LEVEL IV Diagnosis: Cellulitis of left lower limb[ICD10: L03.116] Diagnosis: Localized edema[ICD10: R60.0] Roxie Pisano MD, [facility] CPT-4: 60913 03/03/2016 ([id number]) 13031 EST. P ATIENT, LEVEL III Diagnosis: Essential (primary) hypertension[ICD10: I10] Diagnosis: retirement (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[ICD10: Z79.01] Diagnosis: Chronic atrial fibrillation[ICD10: I48.2] Brielle Pisano MD, [facility] CPT-4: 68416 02/07/2016 ([id number]) 37514 EST. P ATIENT, LEVEL III Diagnosis: Iliotibial band syndrome, right leg[ICD10: M76.31] Diagnosis: Localized edema[ICD10: R60.0] [facility] CPT- 4: 41341 12/13/2015 ([id number]) 53605 EST. P ATIENT, LEVEL III Diagnosis: Localized edema[ICD10: R60.0] Diagnosis: Essential (primary) hypertension[ICD10: I10] Brielle Pisano MD, [facility] CPT-4: 87960 12/03/2015 ([id number]) 71286 EST. P ATIENT, LEVEL IV Diagnosis: retirement (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[ICD10: Z79.01] Diagnosis: Other skin changes[ICD10: R23.8] Diagnosis: Localized edema[ICD10: R60.0] Diagnosis: Pain in right foot[ICD10: M79.671] Valerie Pisano MD, [facility] CPT- 4: 25273 11/20/2015 91950 EST. PATIENT, LEVEL IV Diagnosis: Essential (primary) hypertension[ICD10: I10] Diagnosis: retirement (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[ICD10: Z79.01] Diagnosis: Muscle spasm of back[ICD10: M62.830] [facility] CPT- 4: 07011 09/17/2015 ([id number]) 01906 EST. P ATIENT, LEVEL IV Diagnosis: Localized edema[ICD10: R60.0] Diagnosis: Other specified hypothyroidism[ICD10: E03.8] Diagnosis: Essential (primary) hypertension[ICD10: I10] [facility] CPT-4: 64729 05/31/2015 ([id number]) 23844 EST. P ATIENT, LEVEL III Diagnosis: ALLERGIC RHINITIS[ICD9: 477.9] Diagnosis: ESSENTIAL HYPERTENSION[ICD9: 401.9] [facility] CPT-4: 84389 02/05/2015 ([id number]) OFFICE VISI T, NEW - LEVEL 4 Diagnosis: ESSENTIAL HYPERTENSION[ICD9: 401.9] Diagnosis: HYPOTHYROIDISM[ICD9: 244.9] Diagnosis: ACTINIC KERATOSIS[ICD9: 702.0] [facility] CPT-4: 13527 11/20/2014 Plan of Care Planned Activity Notes C odes Status Date Visit Plan: UTI - pt with positive urinalysis - culture sent if appropriate. Antibiotic electronically prescribed to pt's pharmacy of choice. Pt to call if symptoms do not improve. 10/27/2018 Appointment: Brielle Cavazos [facility]Ptel[phone] [place] (10 min) Simple 10/27/2018 Patient [...] Dr. Hernandez. 09/27/2018 Appointment: [phone] (15 min) Moderate 09/27/2018 Patient [...] 4mg daily. 08/16/2018 Appointment: [phone] (15 min) Moderate 08/16/2018 Patient Education: Patient Medication Summary Completed 08/16/2018 Patient Education: Hypertension Completed 08/16/2018 Patient Education: Patient Medication Summary Completed 07/29/2018 Appointment: Brielle Cavazos [facility]Ptel[phone] [place] (15 min) Moderate 07/12/2018 Visit [...] daily. 07/11/2018 Appointment: [phone] [facility] (15 min) Moderate 07/11/2018 Patient [...] today. 03/24/2018 Appointment: [facility]ano [phone] [facility] [place] (15 min) Moderate 03/24/2018 Patient [...] of control. 11/18/2017 Appointment: Valerie Pisano WPtel: [facility]5 [facility] (15 min) Moderate 11/18/2017 Patient Education: Patient Medication Summary Completed 11/18/2017 Referral: Via [facility] WPtel: 1 [facility] Pt notified [...] Unna Boots 09/30/2017 Appointment: Roxie Cazares WPtel: [phone] [facility] (30 min) Complex 09/30/2017 Patient Education: Patient Medication Summary Completed 09/30/2017 Care Plan: Referral Order SNOMED-CT : [id number] Pending 09/30/2017 Visit Plan: Hypertension - well [...] time. 08/17/2017 Appointment: [facility]isano [facility]Ptel[phone] [facility] [place] (15 min) Moderate 08/17/2017 Patient [...] neck muscles. allergies - kenalog 40mg im [employer] squibb - lot # [id number] expires september 2018 06/15/2017 Visit Plan: Hypertension [...] muscles. 06/15/2017 Appointment: [facility]isano [facility]Ptel[phone] [facility] (15 min) Moderate 06/15/2017 Patient Education: Patient Medication Summary Completed 06/15/2017 Care Plan: Referral Order SNOMED-CT : [id number] Pending 06/15/2017 Appointment: Nurse Visit 04/05/2017 Appointment: [...] booster. 04/01/2017 Appointment: [facility] [phone] [facility] ([facility] min) Moderate 04/01/2017 Patient Education: [...] today 03/16/2017 Appointment: [facility]el[phone] (15 min) Moderate 03/16/2017 Patient [...] spray. 02/09/2017 Appointment: Valerie Pisano WPtel: [address] [place], [place] [address] (15 min) Moderate 02/09/2017 Patient Education: Patient [...] nystatin 10/13/2016 Appointment: Valerie Pisano WPtel: [phone] [facility] (15 min) Moderate 10/13/2016 Patient Education: Patient Medication Summary Completed 10/13/2016 Patient Education: Obesity Completed 10/13/2016 Patient Education: Hypertension Completed 10/13/2016 Care Plan: Urine Culture Pending 08/31/2016 Appointment: Roxie Cazares WPtel: [facility]1 [facility]66[facility] Lab Draw 08/27/2016 Appointment: Nurse Visit 08/26/2016 [...] allergy spray. 07/31/2016 Appointment: Brielle Cavazos WPtel: [facility]3 [phone] (30 min) Complex 07/31/2016 Patient Education: Patient Medication Summary Completed 07/31/2016 Patient Education: Obesity Completed 07/31/2016 Visit Plan: Sinusitis - Pt has acut e infection - pain in face, maxillary region, Pt informed to use decongestant, RX given to patient, sinus rinses also recommended. Call if symptoms do not show improvement. 07/22/2016 Appointment: Valerie Pisano WPtel: [facility]7 [facility] (15 min) Moderate 07/22/2016 Patient Education: Patient [...] to reduce peripheral edema. 05/01/2016 Appointment: Brielle Cavazso WPtel: [phone] [phone] (30 min) Complex 05/01/2016 Patient Education: [...] edema. 04/06/2016 Appointment: Roxie Cazares WPtel: [phone] [facility] (30 min) Complex 04/06/2016 Patient Education: Patient Medication Summary Completed 04/06/2016 Patient Education: Obesity Completed 04/06/2016 Visit Plan: left foot - improved - pt finished with antibiotics - continue to monitor - notify clinic with any concerns. Repeat INR today. 03/10/2016 Appointment: Brielle Cavazos WPtel: [phone] [phone] (30 min) Complex 03/10/2016 Patient Education: Patient Medication Summary Completed 03/10/2016 Visit Plan: Cellulitis - continue w [facility] oral antibiotics as previously directed, return to clinic as previously directed, call for acute change in symptoms, worsening redness, warmth, discharge. 03/06/2016 Appointment: Brielle Cavazos WPtel: [facility] (15 min) Moderate 03/06/2016 Patient Education: Patient Medication Summary Completed 03/06/2016 Patient Education: Obesity Completed 03/06/2016 Visit Plan: Cellulitis - continue w ith oral antibiotics as previously directed, return to clinic as previously directed, call for acute change in symptoms, worsening redness, warmth, discharge. 03/03/2016 Appointment: Brielle Cavazos WPtel: [facility] (15 min) Moderate 03/03/2016 Patient Education: Patient [...] 3.5. 02/07/2016 Appointment: Brielle Cavazos WPtel: [phone] [place] [phone] (30 min) Complex 02/07/2016 Patient Education: Patient Medication Summary Completed 02/07/2016 Patient Education: Obesity Completed 02/07/2016 Patient Education: Hypertension Completed 02/07/2016 Appointment: Brielle Cavazos WPtel: [phone] [phone] (30 min) Complex 02/04/2016 Visit Plan: [...] peripheral edema. 12/13/2015 Appointment: Brielle Cavazos WPtel: [phone] [phone] (15 min) Moderate 12/13/2015 Patient Education: [...] at home. 12/03/2015 Appointment: Brielle Cavazos WPtel: [phone] [phone] (30 min) Complex 12/03/2015 Patient Education: [...] Hypertension Completed 02/05/2015 Appointment: Valerie Pisano WPtel: [facility]3 [facility] (15 min) Moderate 01/29/2015 Visit Plan: Hypertension [...] control. 11/20/2014 Appointment: Valerie Pisano WPtel: [phone] [facility] [place] (S) New Patient 11/20/2014 Patient Education: Patient Medication Summary Completed 11/20/2014 Patient Education: Hypertension Completed 11/20/2014 Patient Education: Patient Medication Summary Completed 10/19/2014 Referral: [facility] WPtel: Referral Appointment Requested Referral: [facility] WPtel: [address] [id number] [place] Referral Appointment Confirmed Instructions Comment CHECK LABS [...] twice daily. get blood work [facility] before [facility] appt - fasting labs Decrease [...] muscles. allergies - kenalog 40mg im bristol [employer] squibb - lot # [id number] expires september 2018 . Hypertension - wel [...] peripheral edema. [facility] or trentone while on the levaquin. Increase lasix and [...]
--- NOTE | 2019-09-12 11:19 | Diagnostic Imaging Report ---
INDICATION: Left leg pain. Left leg venous Doppler study was performed in the routine fashion with color flow Doppler and waveform analysis. FINDINGS: The left common femoral vein, superficial femoral vein, popliteal vein and visualized portion of the posterior tibial vein show normal compressibility and venous flow patterns. There is normal augmentation. IMPRESSION: No evidence of deep vein thrombosis of the major veins of the left leg. Dictated by: Dictated on workstation # [id number]
--- OUTSIDE RECORDS SUMMARY | 2019-09-12 11:19 | XMS REPORT | CCD ---
Author Author Clara Pisano Organization Valerie Pisano MD, [facility] Address [address] [place] [address] Phone Care Team Providers Care Specialist Employee Labor Relations Name Role Phone PP Unavailable CCM Unavailable Summary Purpose Interface Exchange Insurance Providers Payer name Policy type / Coverage type Covered alliance party ID Effective Begin Date Effective End Date WPS Medicare Part B Medicare Part B [id number] Unknown Unknown [employer] Medicare Part B [id number] Unknown Unknown Family history Sister Diagnosis Age At Onset defect Unknown Breast cancer Unknown Daughter Diagnosis Age At Onset Breast cancer Unknown Mother Diagnosis Age At Onset No Family Disease Entered N/A Social History Social History Element Codes Description Effective Dates Marital status Unknown M charissa [address] 11/20/2014 Number of children Unknown 6 11/20/2014 Employment Unknown Retir ed 11/20/[address]: 1772663 Quit over 10 years ago 1965 11/20/2014 Alcohol history Unknown occasionally drinks alcohol 11/20/2014 Allergies, Adverse Reactions, Alerts Substance Reaction Codes Entered Date Inactivated Date Status SULFA(SULFONAMIDE AN TIBIOTICS) rash Unknown 11/20/2014 No Inactive Date Active Past Medical History Illness Codes Condition Status Onset Date Resolved Date Chronic atrial fibri llation ICD-9: 427.31 ICD-10: I48.2 Active 02/06/2016 Unknown Essential (primary) hypertension ICD-9: 401.9 ICD-10: I10 Active 04/30/2016 Unknown 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 ICD-9: V58.61 ICD-10: Z79.01 Active 02/06/2016 Unknown Other skin changes ICD- 9: 782.9 ICD-10: R23.8 Active 11/19/2015 Unknown Tinea corporis ICD-9: 110.5 ICD-10: B35.4 Active 10/13/2016 Unknown Dysuria ICD-9: 788.1 ICD-10: R30.0 Active 08/26/2016 Unknown Other acute sinusitis ICD-9: 461.8 ICD-10: J01.80 Active 07/31/2016 Unknown Other allergic rhinitis ICD-9: 477.8 ICD-10: J30.89 Active 07/31/2016 Unknown Acute recurrent maxi llary sinusitis ICD-9: 461.0 ICD-10: J01.01 Active 07/22/2016 Unknown Localized edema ICD-9: 782.3 ICD-10: R60.0 Active 04/30/2016 Unknown Other allergic rhinitis ICD-9: 477.9 ICD-10: J30.89 Active 04/30/2016 Unknown Cellulitis of left l ower limb ICD-9: 682.7 ICD-10: L03.116 Active 04/05/2016 Unknown Urinary tract infect ion, site not specified ICD-9: 599.0 ICD-10: N39.0 Active 02/13/2016 Unknown Hypothyroidism, unsp ecified ICD-9: 244.9 ICD-10: E03.9 Active 02/11/2016 Unknown Other fatigue ICD-9: 780.79 ICD-10: R53.83 Active 02/11/2016 Unknown Iliotibial band synd rafael, right leg ICD-9: 728.89 ICD-10: M76.31 Active 12/12/2015 Unknown Pain in right foot ICD- 9: 729.5 ICD-10: M79.671 Active 11/19/2015 Unknown Muscle spasm of back ICD-9: 724.8 ICD-10: M62.830 Active 09/16/2015 Unknown Other specified hypo thyroidism ICD-9: 244.8 ICD-10: E03.8 Active 05/30/2015 Unknown ALLERGIC RHINITIS ICD-9: 477.9 Active 02/04/2015 Unknown Hypertension Unknown Active 11/20/2014 Unknow n Hypothryroidism Unknown Active 11/20/2014 Unknow n ACTINIC KERATOSIS ICD-9: 702.0 Active 11/19/2014 Unknown ESSENTIAL HYPERTENSION ICD-9: 401.9 Active 11/19/2014 Unknown HYPOTHYROIDISM ICD-9: 244.9 Active 11/19/2014 Unknown 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 ICD-9: V58.61 Active 10/19/2014 Unknown Problems Condition Codes Effectiv e Dates Condition Status Chronic atrial fibri llation ICD-9: 427.31 ICD-10: I48.2 02/06/2016 Active Essential (primary) hypertension ICD-9: 401.9 ICD-10: I10 04/30/2016 Active group home (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 ICD-9: V58.61 ICD-10: Z79.01 02/06/2016 Active Other skin changes ICD- 9: 782.9 ICD-10: R23.8 11/19/2015 Active Tinea corporis ICD-9: 110.5 ICD-10: B35.4 10/13/2016 Active Dysuria ICD-9: 788.1 ICD-10: R30.0 08/26/2016 Active Other acute sinusitis ICD-9: 461.8 ICD-10: J01.80 07/31/2016 Active Other allergic rhinitis ICD-9: 477.8 ICD-10: J30.89 07/31/2016 Active Acute recurrent maxi llary sinusitis ICD-9: 461.0 ICD-10: J01.01 07/22/2016 Active Localized edema ICD-9: 782.3 ICD-10: R60.0 04/30/2016 Active Other allergic rhinitis ICD-9: 477.9 ICD-10: J30.89 04/30/2016 Active Cellulitis of left l ower limb ICD-9: 682.7 ICD-10: L03.116 04/05/2016 Active Urinary tract infect ion, site not specified ICD-9: 599.0 ICD-10: N39.0 02/13/2016 Active Hypothyroidism, unsp ecified ICD-9: 244.9 ICD-10: E03.9 02/11/2016 Active Other fatigue ICD-9: 780.79 ICD-10: R53.83 02/11/2016 Active Iliotibial band synd rafael, right leg ICD-9: 728.89 ICD-10: M76.31 12/12/2015 Active Pain in right foot ICD- 9: 729.5 ICD-10: M79.671 11/19/2015 Active Muscle spasm of back ICD-9: 724.8 ICD-10: M62.830 09/16/2015 Active Other specified hypo thyroidism ICD-9: 244.8 ICD-10: E03.8 05/30/2015 Active ALLERGIC RHINITIS ICD-9: 477.9 02/04/2015 Active Hypertension Unknown 11/20/2014 Active Hypothryroidism Unknown 11/20/2014 Active ACTINIC KERATOSIS ICD-9: 702.0 11/19/2014 Active ESSENTIAL HYPERTENSION ICD-9: 401.9 11/19/2014 Active HYPOTHYROIDISM ICD-9: 244.9 11/19/2014 Active group home current us e of anticoagulant therapy ICD-9: V58.61 10/19/2014 Active Medications Medication Codes Instruc tions Start Date Stop Date Sta Fill Instructions warfarin 5 mg tablet RxNorm: 951035 TAKE 1 AND 1/2 TABLETS BY MOUTH ON AND WEDNESDAY. TAKE ONLY 1 TABLET BY MOUTH ALL OTHER DAYS OF THE WEEK 12/14/2016 05/30/2017 Ac tive potassium chloride E R 20 mEq tablet,extended release RxNorm: 388554 TAKE ONE TABLET BY MOUTH DAILY 10/29/2016 01/26/2017 Active warfarin 5 mg tablet RxNorm: 049658 TAKE 1 AND 1/2 TABLETS BY MOUTH ON AND WEDNESDAY. TAKE ONLY 1 TABLET BY MOUTH ALL OTHER DAYS OF THE WEEK 10/27/2016 12/13/2016 In active nystatin 100,000 uni t/gram topical cream RxNorm: 960908 1 Application TOP TID 10/13/2016 No Stop Date Active nitrofurantoin 50 mg capsule RxNorm: 089810 1 Capsule(s) PO BID 09/04/2016 09/03/2016 Inactive nitrofurantoin macro crystal 50 mg capsule RxNorm: 221591 1 Capsule(s) PO BID 09/04/2016 09/10/2016 In active Cipro 500 mg tablet RxNorm: 500877 1 Tablet(s) PO BID 08/26/2016 10/12/2016 Inactive Zyrtec 10 mg tablet RxNorm: 7685142 1 Tablet(s) PO daily 07/31/2016 08/29/2016 Inactive prednisone 20 mg tablet RxNorm: 138059 2 Tablet(s) PO daily 07/31/2016 08/02/2016 Inactive Kenalog 40 mg/mL zohra pension for injection RxNorm: 3507010 Milliliter(s) Inj 07/22/2016 07/22/2016 In active ceftriaxone 500 mg s olution for injection RxNorm: 4509979 Inj 07/22/2016 07/22/2016 Inactive Flonase Allergy Reli ef 50 mcg/actuation nasal spray,suspension RxNorm: 3665619 1 [place] NASAL BID 07/22/2016 08/20/2016 Inactive azithromycin 250 mg tablet RxNorm: 702433 2 Tablet(s) PO on day #1, then 1 pill daily x 4 days 07/22/2016 10/12/2016 Inactive warfarin 5 mg tablet RxNorm: 740637 TAKE 1 AND 1/2 TABLETS BY MOUTH ON AND WEDNESDAY. TAKE ONLY 1 TABLET BY MOUTH ALL OTHER DAYS OF THE WEEK 07/09/2016 09/30/2016 In active levothyroxine 125 mc g tablet RxNorm: 683435 Tablet(s) TAKE ONE TA BLET BY MOUTH DAILY ON AN EMPTY STOMACH 06/23/2016 03/19/2017 Active levothyroxine 125 mc g tablet RxNorm: 155088 TAKE ONE TABLET BY MO UTH DAILY ON AN EMPTY STOMACH 06/23/2016 03/19/2017 Active levothyroxine 125 mc g tablet RxNorm: 197265 TAKE ONE TABLET BY MO UTH DAILY ON AN EMPTY STOMACH 06/23/2016 06/22/2016 Inactive cetirizine 10 mg tablet RxNorm: 7713740 TAKE ONE TABLET BY MOUTH DAILY 06/16/2016 10/13/2016 In active furosemide 40 mg tablet RxNorm: 170631 Tablet(s) TAKE ONE TABLET BY MOUTH DAILY 06/05/2016 12/01/2016 In active cetirizine 10 mg tablet RxNorm: 9650081 1 Tablet(s) PO daily 05/01/2016 05/30/2016 Inactive Levaquin 250 mg tablet RxNorm: 929407 Tablet(s) PO 2 pills day one and 1 pill day 2-7 04/06/2016 07/21/2016 Inactive warfarin 5 mg tablet RxNorm: 462814 Tablet(s) 1/2 TABLETS BY MOUTH ON AND WEDNESDAY. TAKE ONLY 1 TABLET BY MOUTH ALL OTHER DAYS OF THE WEEK 03/18/2016 07/07/2016 In active triamcinolone aceton sreekanth 0.025 % topical cream RxNorm: 9497872 1 Application TOP BI D 03/10/2016 No Stop Date Active potassium chloride E R 20 mEq tablet,extended release RxNorm: 577146 1 Tablet(s) PO daily 03/04/2016 06/01/2016 Inactive Levaquin 250 mg tablet RxNorm: 058619 Tablet(s) PO 2 pills day one and 1 pill day 2-7 03/04/2016 04/05/2016 Inactive Levaquin 250 mg tablet RxNorm: 837453 Tablet(s) PO 2 pills day one and 1 pill day 2-7 03/03/2016 03/03/2016 Inactive potassium chloride E R 20 mEq tablet,extended release RxNorm: 549934 1 Tablet(s) PO daily 03/03/2016 03/03/2016 Inactive Cipro 500 mg tablet RxNorm: 617012 1 Tablet(s) PO BID 02/20/2016 07/21/2016 Inactive Cipro 500 mg tablet RxNorm: 408619 1 Tablet(s) PO BID 02/20/2016 02/19/2016 Inactive furosemide 40 mg tablet RxNorm: 955504 TAKE ONE TABLET BY MOUTH DAILY 01/27/2016 01/26/2016 In active warfarin 5 mg tablet RxNorm: 905393 TAKE 1 AND 1/2 TABLETS BY MOUTH ON AND WEDNESDAY. TAKE ONLY 1 TABLET BY MOUTH ALL OTHER DAYS OF THE WEEK 01/27/2016 01/26/2016 In active furosemide 40 mg tablet RxNorm: 899371 TAKE ONE TABLET BY MOUTH DAILY 01/27/2016 06/04/2016 In active warfarin 5 mg tablet RxNorm: 887460 TAKE 1 AND 1/2 TABLETS BY MOUTH ON AND WEDNESDAY. TAKE ONLY 1 TABLET BY MOUTH ALL OTHER DAYS OF THE WEEK 01/27/2016 03/17/2016 In active potassium chloride E R 20 mEq tablet,extended release RxNorm: 706338 1 Tablet(s) PO daily 11/20/2015 03/02/2016 Inactive furosemide 40 mg tablet RxNorm: 244987 TAKE ONE TABLET BY MOUTH DAILY 11/12/2015 01/26/2016 In active Zovirax 5 % topical cream RxNorm: 766747 TOP QID 0 09/24/2015 09/23/2015 Inactive Zovirax 5 % topical cream RxNorm: 156045 TOP QID 0 09/24/2015 11/19/2015 Inactive nystatin 100,000 uni t/gram topical cream RxNorm: 752190 1 Application TOP TID 09/17/2015 10/12/2016 In active warfarin 5 mg tablet RxNorm: 848579 TAKE 1 AND 1/2 TABLETS BY MOUTH ON AND WEDNESDAY. TAKE ONLY 1 TABLET BY MOUTH ALL OTHER DAYS OF THE WEEK 08/19/2015 01/05/2016 In active loratadine 10 mg tablet RxNorm: 986186 1 Tablet(s) PO daily 07/30/2015 07/23/2016 Inactive loratadine 10 mg tablet RxNorm: 524829 1 Tablet(s) PO daily 07/30/2015 07/29/2015 Inactive furosemide 40 mg tablet RxNorm: 210941 TAKE ONE TABLET BY MOUTH DAILY 06/24/2015 11/11/2015 In active levothyroxine 125 mc g tablet RxNorm: 453741 1 Tablet(s) PO daily 05/31/2015 05/24/2016 Inactive furosemide 40 mg tablet RxNorm: 417424 1 Tablet(s) PO daily 04/05/2015 06/23/2015 Inactive warfarin 5 mg tablet RxNorm: 000429 TAKE 1 AND 1/2 TABLETS BY MOUTH ON AND WEDNESDAY. TAKE ONLY 1 TABLET BY MOUTH ALL OTHER DAYS OF THE WEEK 02/12/2015 07/29/2015 In active Flonase Allergy Reli ef 50 mcg/actuation nasal spray,suspension RxNorm: 2 [place] NASAL daily 02/05/2015 03/06/2015 Inactive Kenalog 40 mg/mL zohra pension for injection RxNorm: 3134583 Milliliter(s) Inj 02/05/2015 02/05/2015 In active warfarin 5 mg tablet RxNorm: 109234 Take 7.5mg (1 1/2 tablets) Wednesday and and 1 Tablet(s) PO (5mg) all other days 01/11/2015 02/09/2015 Inactive levothyroxine 125 mc g tablet RxNorm: 096658 1 Tablet(s) PO every other day 01/01/2015 05/30/2015 In active alternate with 150 levothyroxine 150 mc g tablet RxNorm: 635664 1 Tablet(s) PO every other day 01/01/2015 05/30/2015 In active alternate with 125 loratadine 10 mg tablet RxNorm: 896775 Tablet(s) PO as needed No Start Date Active Fish Oil 1,000 mg ca psule RxNorm: 1 Capsule(s) PO TID No Start Date Active magnesium 250 mg tablet RxNorm: 1 Tablet(s) PO daily No Start Date Active Vitamin D3 2,000 uni t tablet RxNorm: 925612 2 Tablet(s) PO daily No Start Date Active levothyroxine 125 mc g tablet RxNorm: 660957 1 Tablet(s) PO daily No Start Date 12/31/2014 Inactive levothyroxine 150 mc g tablet RxNorm: 045252 1 Tablet(s) PO daily No Start Date 12/31/2014 Inactive furosemide 40 mg tablet RxNorm: 044894 1 Tablet(s) PO daily No Start Date 04/04/2015 Inactive potassium chloride RxNorm: miscellaneous No Start Date 11/19/2015 Inactive Vitamin D2 oral RxNorm: 4018 oral No Start Date 05/31/2015 Inactive warfarin 5 mg tablet RxNorm: 684212 1 Tablet(s) PO daily No Start Date 01/10/2015 Inactive Medication Administered Medication Codes Instruc tions Start Date Status ceftriaxone 500 mg solution for injection RxNorm: 3192790 07/22/2016 No longer A ctive Kenalog 40 mg/mL suspension for injection RxNorm: 3879641 Milliliter 07/22/2016 No longer Active Kenalog 40 mg/mL suspension for injection RxNorm: 4551894 Milliliter 02/05/2015 No longer Active Immunizations Vaccine Codes Date Status Influenza CVX: 141 05/06 completed Influenza CVX: 141 04/28 completed Pneumococcal CVX: 33 06/1999 completed Assessments Condition Codes Effectiv e Dates 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 89 ICD-9: 477.8 07/31/2016 Acute recurrent maxillary sinusitis ICD-10: J01.01 ICD-9: 461.0 07/22/2016 Other allergic rhinitis ICD-10: J30. 89 ICD-9: 477.9 05/01/2016 Localized edema ICD-10: R60.0 ICD-9: 782.3 05/01/2016 Cellulitis of left lower limb ICD-10 : L03.116 ICD-9: 682.7 04/06/2016 Urinary tract infection, site not specified ICD-10: N39.0 ICD-9: 599.0 02/14/2016 Hypothyroidism, unspecified ICD-10: E03.9 ICD-9: 244.9 02/12/2016 Other fatigue ICD-10: R53.83 ICD-9: 780.79 02/12/2016 Iliotibial band syndrome, right leg ICD-10: M76.31 ICD-9: 728.89 12/13/2015 Pain in right foot ICD-10: M79.671 ICD-9: 729.5 11/20/2015 Muscle spasm of back ICD-10: M62.830 ICD-9: 724.8 09/17/2015 Other specified hypothyroidism ICD-1 0: E03.8 ICD-9: 244.8 05/31/2015 ALLERGIC RHINITIS ICD-9: 477.9 02/05/2015 ESSENTIAL HYPERTENSION ICD-9: 401.9 02/05/2015 ACTINIC KERATOSIS ICD-9: 702.0 11/20/2014 HYPOTHYROIDISM ICD-9: 244.9 11/20/2014 group home current use of anticoagulant therapy ICD-9: V58.61 10/19/2014 Reason For Visit Reason For Visit Effective Dates Notes hypertension 10/13/2016 sinus congestion 07/31/2016 sinus congestion [...] Code Item Item Code Result Date Pt Gbm6454 PT 26.1 seconds 11/26/2016 Pt Kxv4555 INR 2.6 11/26/2016 Pt Tcs4802 Low Intensity - 1.5-2.0 11/26/2016 Pt Dyu5200 Mod intensity - 2.0-3.0 11/26/2016 Pt Vbk4647 Hi intensity - 3.0-4.0 11/26/2016 Pt Hzz5360 PT 26.2 seconds 10/29/2016 Pt Uyx5703 INR 2.6 10/29/2016 Pt Wff4775 Low Intensity - 1.5-2.0 10/29/2016 Pt Rnc1717 Mod intensity - 2.0-3.0 10/29/2016 Pt Ola1945 Hi intensity - 3.0-4.0 10/29/2016 Pt Nds0539 PT 20.8 seconds 10/13/2016 Pt Tqm4920 INR 1.9 10/13/2016 Pt Wtc4596 Low Intensity - 1.5-2.0 10/13/2016 Pt Jrp4823 Mod intensity - 2.0-3.0 10/13/2016 Pt Wvt9193 Hi intensity - 3.0-4.0 10/13/2016 Pt Sta9322 PT 26.5 seconds 10/01/2016 Pt Wpe6010 INR 2.6 10/01/2016 Pt Avx4877 Low Intensity - 1.5-2.0 10/01/2016 Pt Dwb9611 Mod intensity - 2.0-3.0 10/01/2016 Pt Ipb1926 Hi intensity - 3.0-4.0 10/01/2016 Pt Dje3453 PT 24.6 seconds 09/14/2016 Pt Uyv0965 INR 2.4 09/14/2016 Pt Hds2332 Low Intensity - 1.5-2.0 09/14/2016 Pt Hiw9714 Mod intensity - 2.0-3.0 09/14/2016 Pt Bkc9751 Hi intensity - 3.0-4.0 09/14/2016 Pt Zzv0149 PT 18.0 seconds 09/07/2016 Pt Ume1110 INR 1.6 09/07/2016 Pt Pmt2528 Low Intensity - 1.5-2.0 09/07/2016 Pt Dnf7206 Mod intensity - 2.0-3.0 09/07/2016 Pt Txv5867 Hi intensity - 3.0-4.0 09/07/2016 Pt Uys1466 PT 23.7 seconds 08/12/2016 Pt Hdf7307 INR 2.2 08/12/2016 Pt Yxx9462 Low Intensity - 1.5-2.0 08/12/2016 Pt Gvf2971 Mod intensity - 2.0-3.0 08/12/2016 Pt Lwe9030 Hi intensity - 3.0-4.0 08/12/2016 Pt Cle4901 PT 21.6 seconds 07/27/2016 Pt Xsm9408 INR 2.0 07/27/2016 Pt Nsn7845 Low Intensity - 1.5-2.0 07/27/2016 Pt Maz6062 Mod intensity - 2.0-3.0 07/27/2016 Pt Pfj2658 Hi intensity - 3.0-4.0 07/27/2016 Pt Tlr0293 PT 26.0 seconds 06/15/2016 Pt Uiw6571 INR 2.5 06/15/2016 Pt Trw1490 Low Intensity - 1.5-2.0 06/15/2016 Pt Fap9801 Mod intensity - 2.0-3.0 06/15/2016 Pt Qnz4186 Hi intensity - 3.0-4.0 06/15/2016 Pt Jnv9514 PT 18.8 seconds 06/01/2016 Pt Oyh7223 INR 1.7 06/01/2016 Pt Rbg5210 Low Intensity - 1.5-2.0 06/01/2016 Pt Fbf3684 Mod intensity - 2.0-3.0 06/01/2016 Pt Mbv0417 Hi intensity - 3.0-4.0 06/01/2016 Pt Knt6170 PT 20.8 seconds 05/12/2016 Pt Sxy9708 INR 1.9 05/12/2016 Pt Ozf8445 Low Intensity - 1.5-2.0 05/12/2016 Pt Eft0267 Mod intensity - 2.0-3.0 05/12/2016 Pt Ljr5993 Hi intensity - 3.0-4.0 05/12/2016 Pt Bkn5658 PT 24.5 seconds 04/10/2016 Pt Ajd7490 INR 2.4 04/10/2016 Pt Ovf6127 Low Intensity - 1.5-2.0 04/10/2016 Pt Mue1414 Mod intensity - 2.0-3.0 04/10/2016 Pt Bqv6198 Hi intensity - 3.0-4.0 04/10/2016 Pt Axa4630 PT 26.4 seconds 03/10/2016 Pt Lfq1178 INR 2.6 03/10/2016 Pt Etn5016 Low Intensity - 1.5-2.0 03/10/2016 Pt Fhi2288 Mod intensity - 2.0-3.0 03/10/2016 Pt Cxf6525 Hi intensity - 3.0-4.0 03/10/2016 Pt Ddv2323 PT 24.9 seconds 03/06/2016 Pt Sfl5363 INR 2.4 03/06/2016 Pt Nka4743 Low Intensity - 1.5-2.0 03/06/2016 Pt Sli2329 Mod intensity - 2.0-3.0 03/06/2016 Pt Kqc8411 Hi intensity - 3.0-4.0 03/06/2016 Pt Njd2267 PT 21.9 seconds 02/25/2016 Pt Ozl2165 INR 2.0 02/25/2016 Pt Svu9184 Low Intensity - 1.5-2.0 02/25/2016 Pt Kbl9650 Mod intensity - 2.0-3.0 02/25/2016 Pt Uho5404 Hi intensity - 3.0-4.0 02/25/2016 Pt Blt2584 PT 21.8 seconds 02/21/2016 Pt Cgl2563 INR 2.0 02/21/2016 Pt Uom1548 Low Intensity - 1.5-2.0 02/21/2016 Pt Zmr1523 Mod intensity - 2.0-3.0 02/21/2016 Pt Ypd8441 Hi intensity - 3.0-4.0 02/21/2016 Culture Urine [id number] URI NE CULTURE SEE NOTES 02/20/2016 Culture Urine [id number] Con tinued Results 02/20/2016 Urine Culture Ucult Comp lete Growth of aerobe sent to ref lab 02/18/2016 Free T4 Qus875 FREE T4 1.87 ng/dL 02/14/2016 Tsh Ord6 hTSH II 0.80 uIU/mL 02/14/2016 Pt Frj2559 PT 27.1 seconds 02/14/2016 Pt Exa5073 INR 2.7 02/14/2016 Pt Iup8556 Low Intensity - 1.5-2.0 02/14/2016 Pt Zsz8960 Mod intensity - 2.0-3.0 02/14/2016 Pt Fpc9748 Hi intensity - 3.0-4.0 02/14/2016 Comp Metabolic Wyu161 NA 139 mEq/L 02/14/2016 Comp Metabolic Yjz194 K 3.8 mEq/L 02/14/2016 Comp Metabolic Jnr231 CL 103 mEq/L 02/14/2016 Comp Metabolic Xpj294 CO2 27.0 mEq/L 02/14/2016 Comp Metabolic Rpk195 AN ION GAP 13 02/14/2016 Comp Metabolic Dor696 GL UCOSE 91 mg/dL 02/14/2016 Comp Metabolic Sau763 Cr eat 1.0 mg/dL 02/14/2016 Comp Metabolic Exj202 eG FR 58 ml/min/1.73m2 02/13 Comp Metabolic Hwr953 BUN 16 mg/dL 02/14/2016 Comp Metabolic Pod303 B/ C Ratio 16.2 Ratio 02/14/2016 Comp Metabolic Lhn507 CA LCIUM 9.0 mg/dL 02/14/2016 Comp Metabolic Vjh919 AL K PHOS 88 U/L 02/14/2016 Comp Metabolic Urb966 T(SGOT) 17 U/L 02/14/2016 Comp Metabolic Lhv605 AL T(SGPT) 12 U/L 02/14/2016 Comp Metabolic Nrq416 BI LI T 0.6 mg/dL 02/14/2016 Comp Metabolic Izf210 AL BUMIN 3.2 g/dL 02/14/2016 Comp Metabolic Vmv415 TP RO 5.8 g/dL 02/14/2016 Comp Metabolic Yhj321 GL OB 2.6 g/dL 02/14/2016 Comp Metabolic Kzf482 A/ G Ratio 1.3 Ratio 02/14/2016 Comp Metabolic Uze064 Os mo 278 mOsmo 02/14/2016 Urinalysis Ord28 U-Color Yellow 02/14/2016 Urinalysis Ord28 [...] U-VOL VOLUME SUFFICIENT (10mL) 02/14/2016 Urinalysis Ord28 U-Yeast NEGATIVE 02/14/2016 Urinalysis Ord28 U-Com Urine saved if culture needed (specimen acceptable for 48 hours from collection if refrigerated) 02/14/2016 Cbc With Differential Ord2 WBC 8.78 K/ul 02/14/2016 Cbc With Differential Ord2 RBC 4.62 M/ul 02/14/2016 Cbc With Differential Ord2 HGB 13.5 g/dl 02/14/2016 Cbc With Differential Ord2 Neut% 56.3 % 02/14/2016 Cbc With Differential Ord2 HCT 42.4 % 02/14/2016 Cbc With Differential Ord2 MCV 91.8 fl 02/14/2016 Cbc With Differential Ord2 Lymph% 29.0 % 02/14/2016 Cbc With Differential Ord2 Dukes% 9.3 % 02/14/2016 Cbc With Differential Ord2 MCH 29.2 pg 02/14/2016 Cbc With Differential Ord2 Eos% 4.8 % 02/14/2016 Cbc With Differential Ord2 MCHC 31.8 pg 02/14/2016 Cbc With Differential Ord2 PLT 355 K/ul 02/14/2016 Cbc With Differential Ord2 Baso% 0.6 % 02/14/2016 Cbc With Differential Ord2 RDW 16.2 % 02/14/2016 Cbc With Differential Ord2 Neut ABS# 4.94 K/ul 02/14/2016 Cbc With Differential Ord2 Lymph ABS# 2.55 K/ul 02/14/2016 Cbc With Differential Ord2 Dukes ABS# 0.8 K/ul 02/14/2016 Cbc With Differential Ord2 Eos ABS# 0.4 K/ul 02/14/2016 Cbc With Differential Ord2 Baso ABS# 0.1 K/ul 02/14/2016 Pt Zur6012 PT 34.6 seconds 02/06/2016 Pt Lzq6715 INR 3.7 02/06/2016 Pt Mpn2398 Low Intensity - 1.5-2.0 02/06/2016 Pt Wfu0654 Mod intensity - 2.0-3.0 02/06/2016 Pt Wqu2366 Hi intensity - 3.0-4.0 02/06/2016 Pt Vhl4061 PT 33.3 seconds 01/23/2016 Pt Emh9651 INR 3.5 01/23/2016 Pt Mta8889 Low Intensity - 1.5-2.0 01/23/2016 Pt Mbp2237 Mod intensity - 2.0-3.0 01/23/2016 Pt Npe6645 Hi intensity - 3.0-4.0 01/23/2016 Pt Ngi1224 PT 30.5 seconds 12/31/2015 Pt Hhk9739 INR 3.2 12/31/2015 Pt Bdp1501 Low Intensity - 1.5-2.0 12/31/2015 Pt Nft4284 Mod intensity - 2.0-3.0 12/31/2015 Pt Pvc7687 Hi intensity - 3.0-4.0 12/31/2015 Pt Ele9449 PT 35.6 seconds 12/25/2015 Pt Zrc9536 INR 3.9 12/25/2015 Pt Zwd0568 Low Intensity - 1.5-2.0 12/25/2015 Pt Xqy7094 Mod intensity - 2.0-3.0 12/25/2015 Pt Ayj3409 Hi intensity - 3.0-4.0 12/25/2015 Pt Dpb3012 PT 30.8 seconds 11/21/2015 Pt Kck5454 INR 3.2 11/21/2015 Pt Zwh6140 Low Intensity - 1.5-2.0 11/21/2015 Pt Kpx2854 Mod intensity - 2.0-3.0 11/21/2015 Pt Ijq0723 Hi intensity - 3.0-4.0 11/21/2015 Uric Acid Ord77 Uric A 5.9 mg/dL 11/21/2015 Cbc With Differential Ord2 WBC 10.76 K/ul 11/20/2015 Cbc With Differential Ord2 RBC 4.04 M/ul 11/20/2015 Cbc With Differential Ord2 HGB 12.1 g/dl 11/20/2015 Cbc With Differential Ord2 Neut% 65.5 % 11/20/2015 Cbc With Differential Ord2 HCT 38.5 % 11/20/2015 Cbc With Differential Ord2 Lymph% 23.3 % 11/20/2015 Cbc With Differential Ord2 MCV 95.3 fl 11/20/2015 Cbc With Differential Ord2 MCH 30.0 pg 11/20/2015 Cbc With Differential Ord2 Dukes% 8.1 % 11/20/2015 Cbc With Differential Ord2 MCHC 31.4 pg 11/20/2015 Cbc With Differential Ord2 Eos% 2.7 % 11/20/2015 Cbc With Differential Ord2 Baso% 0.4 % 11/20/2015 Cbc With Differential Ord2 PLT 413 K/ul 11/20/2015 Cbc With Differential Ord2 RDW 17.4 % 11/20/2015 Cbc With Differential Ord2 Neut ABS# 7.05 K/ul 11/20/2015 Cbc With Differential Ord2 Lymph ABS# 2.51 K/ul 11/20/2015 Cbc With Differential Ord2 Dukes ABS# 0.9 K/ul 11/20/2015 Cbc With Differential Ord2 Eos ABS# 0.3 K/ul 11/20/2015 Cbc With Differential Ord2 Baso ABS# 0.0 K/ul 11/20/2015 Comp Metabolic Rtv203 NA 137 mEq/L 10/22/2015 Comp Metabolic Ndz286 K 3.9 mEq/L 10/22/2015 Comp Metabolic Apk154 CL 100 mEq/L 10/22/2015 Comp Metabolic Bgr095 CO2 31.0 mEq/L 10/22/2015 Comp Metabolic Noz263 AN ION GAP 10 10/22/2015 Comp Metabolic Haz824 GL UCOSE 94 mg/dL 10/22/2015 Comp Metabolic Mdf724 Cr eat 1.0 mg/dL 10/22/2015 Comp Metabolic Jnl332 eG FR 55 ml/min/1.73m2 10/21 Comp Metabolic Rmv719 BUN 19 mg/dL 10/22/2015 Comp Metabolic Ljv498 B/ C Ratio 18.3 Ratio 10/22/2015 Comp Metabolic Zjz282 CA LCIUM 8.8 mg/dL 10/22/2015 Comp Metabolic Mza410 AL K PHOS 83 U/L 10/22/2015 Comp Metabolic Epz824 T(SGOT) 15 U/L 10/22/2015 Comp Metabolic Brm489 AL T(SGPT) 13 U/L 10/22/2015 Comp Metabolic Hmh354 BI LI T 0.9 mg/dL 10/22/2015 Comp Metabolic Eoe709 AL BUMIN 2.8 g/dL 10/22/2015 Comp Metabolic Lhd722 TP RO 5.4 g/dL 10/22/2015 Comp Metabolic Mzm859 GL OB 2.6 g/dL 10/22/2015 Comp Metabolic Gfw880 A/ G Ratio 1.1 Ratio 10/22/2015 Comp Metabolic Srv199 Os mo 276 mOsmo 10/22/2015 Pt Pru1677 PT 22.8 seconds 10/22/2015 Pt Uuz0373 INR 2.1 10/22/2015 Pt Xbr6493 Low Intensity - 1.5-2.0 10/22/2015 Pt Zdw6333 Mod intensity - 2.0-3.0 10/22/2015 Pt Soo7334 Hi intensity - 3.0-4.0 10/22/2015 Bili D Ord93 BILI D 0.1 mg/dL 10/22/2015 Bili D Ord93 BILI I 0.8 mg/dL 10/22/2015 Pt Jtn2850 PT 28.0 seconds 09/16/2015 Pt Lfe4846 INR 2.7 09/16/2015 Pt Afq2544 Low Intensity - 1.5-2.0 09/16/2015 Pt Ohd9298 Mod intensity - 2.0-3.0 09/16/2015 Pt Cmo0541 Hi intensity - 3.0-4.0 09/16/2015 Tsh Ord6 hTSH II 1.40 uIU/mL 09/16/2015 Free T4 Obt880 FREE T4 1.73 ng/dL 09/16/2015 Lipid Ord30 CHOL 169 mg/dL 09/16/2015 Lipid Ord30 HDL 66.0 mg/dl 09/16/2015 Lipid Ord30 TRIG 78 mg/dL 09/16/2015 Lipid Ord30 LDL 87 mg/dL 09/16/2015 Lipid Ord30 C/HDL 2.6 Ratio 09/16/2015 Pt Yja3541 PT 26.6 seconds 08/21/2015 Pt Rib8777 INR 2.6 08/21/2015 Pt Ijr5741 Low Intensity - 1.5-2.0 08/21/2015 Pt Pvp6250 Mod intensity - 2.0-3.0 08/21/2015 Pt Xxm9817 Hi intensity - 3.0-4.0 08/21/2015 Comp Metabolic Ylj150 NA 141 mEq/L 08/08/2015 Comp Metabolic Glb911 K 3.3 mEq/L 08/08/2015 Comp Metabolic Ggx531 CL 102 mEq/L 08/08/2015 Comp Metabolic Zcn906 CO2 31.0 mEq/L 08/08/2015 Comp Metabolic Qja046 AN ION GAP 11 08/08/2015 Comp Metabolic Iqg358 GL UCOSE 83 mg/dL 08/08/2015 Comp Metabolic Jiu200 Cr eat 1.0 mg/dL 08/08/2015 Comp Metabolic Nmw893 eG FR 55 ml/min/1.73m2 08/08 Comp Metabolic Bpa700 BUN 19 mg/dL 08/08/2015 Comp Metabolic Mxf439 B/ C Ratio 18.3 Ratio 08/08/2015 Comp Metabolic Edi962 CA LCIUM 8.9 mg/dL 08/08/2015 Comp Metabolic Vkr015 AL K PHOS 84 U/L 08/08/2015 Comp Metabolic Ism601 T(SGOT) 20 U/L 08/08/2015 Comp Metabolic Gha609 AL T(SGPT) 18 U/L 08/08/2015 Comp Metabolic Num418 BI LI T 0.6 mg/dL 08/08/2015 Comp Metabolic Fhz489 AL BUMIN 3.3 g/dL 08/08/2015 Comp Metabolic Evo779 TP RO 5.9 g/dL 08/08/2015 Comp Metabolic Tjy993 GL OB 2.6 g/dL 08/08/2015 Comp Metabolic Jqt365 A/ G Ratio 1.3 Ratio 08/08/2015 Comp Metabolic Atn984 Os mo 283 mOsmo 08/08/2015 Cbc With Differential Ord2 WBC 10.67 K/ul 08/08/2015 Cbc With Differential Ord2 RBC 4.77 M/ul 08/08/2015 Cbc With Differential Ord2 HGB 14.3 g/dl 08/08/2015 Cbc With Differential Ord2 Neut% 60.4 % 08/08/2015 Cbc With Differential Ord2 HCT 43.7 % 08/08/2015 Cbc With Differential Ord2 Lymph% 27.2 % 08/08/2015 Cbc With Differential Ord2 MCV 91.6 fl 08/08/2015 Cbc With Differential Ord2 MCH 30.0 pg 08/08/2015 Cbc With Differential Ord2 Dukes% 8.2 % 08/08/2015 Cbc With Differential Ord2 [...] 2.90 K/ul 08/08/2015 Cbc With Differential Ord2 Dukes ABS# 0.9 K/ul 08/08/2015 Cbc With Differential [...] Ord93 BILI I 0.5 mg/dL 08/08/2015 Pt Ttu8542 PT 31.8 seconds 08/05/2015 Pt Xzx0523 INR 3.2 08/05/2015 Pt Vwu7888 Low Intensity - 1.5-2.0 08/05/2015 Pt Ryu2700 Mod intensity - 2.0-3.0 08/05/2015 Pt Ezt6386 Hi intensity - 3.0-4.0 08/05/2015 Pt Ipc0753 PT 27.4 seconds 06/27/2015 Pt Tfa8128 INR 2.6 06/27/2015 Pt Ufh0274 Low Intensity - 1.5-2.0 06/27/2015 Pt Tyk0635 Mod intensity - 2.0-3.0 06/27/2015 Pt Pwz1793 Hi intensity - 3.0-4.0 06/27/2015 Free T4 Nbo221 FREE T4 1.89 ng/dL 05/31/2015 Tsh Ord6 hTSH II 0.31 uIU/mL 05/31/2015 [...] With Differential Ord2 RDW 15.1 % 05/31/2015 Comp Metabolic Lxw507 NA 140 mEq/L 05/31/2015 Comp Metabolic Szn848 K 3.3 mEq/L 05/31/2015 Comp Metabolic Lmu359 CL 99 mEq/L 05/31/2015 Comp Metabolic Xks783 CO2 30.0 mEq/L 05/31/2015 Comp Metabolic Etn405 AN ION GAP 14 05/31/2015 Comp Metabolic Mnv702 GL UCOSE 70 mg/dL 05/31/2015 Comp Metabolic Jkq653 Cr eat 1.0 mg/dL 05/31/2015 Comp Metabolic Xue821 eG FR 55 ml/min/1.73m2 05/31 Comp Metabolic Yic674 BUN 23 mg/dL 05/31/2015 Comp Metabolic Qfd681 B/ C Ratio 22.1 Ratio 05/31/2015 Comp Metabolic Voj511 CA LCIUM 8.9 mg/dL 05/31/2015 Comp Metabolic Vua178 AL K PHOS 86 U/L 05/31/2015 Comp Metabolic Lte589 T(SGOT) 28 U/L 05/31/2015 Comp Metabolic Wlf287 AL T(SGPT) 30 U/L 05/31/2015 Comp Metabolic Eeu215 BI LI T 0.4 mg/dL 05/31/2015 Comp Metabolic Bns298 AL BUMIN 3.3 g/dL 05/31/2015 Comp Metabolic Nfl553 TP RO 6.0 g/dL 05/31/2015 Comp Metabolic Sli458 GL OB 2.7 g/dL 05/31/2015 Comp Metabolic Bak417 A/ G Ratio 1.2 Ratio 05/31/2015 Comp Metabolic Mvn423 Os mo 282 mOsmo 05/31/2015 Pt Ckv0451 PT 23.3 seconds 04/15/2015 Pt Gqc2515 INR 2.2 04/15/2015 Pt Yiq7582 Low Intensity - 1.5-2.0 04/15/2015 Pt Vcp4530 Mod intensity - 2.0-3.0 04/15/2015 Pt Spa7200 Hi intensity - 3.0-4.0 04/15/2015 Pt Pln8665 PT 19.5 seconds 04/04/2015 Pt Jne3613 INR 1.7 04/04/2015 Pt Pqf8184 Low Intensity - 1.5-2.0 04/04/2015 Pt Bky6030 Mod intensity - 2.0-3.0 04/04/2015 Pt Dkj0392 Hi intensity - 3.0-4.0 04/04/2015 Pt Qmw0966 PT 39.8 seconds 04/01/2015 Pt Phh9630 INR 4.3 04/01/2015 Pt Qmw5821 Low Intensity - 1.5-2.0 04/01/2015 Pt Hcg5491 Mod intensity - 2.0-3.0 04/01/2015 Pt Oih7532 Hi intensity - 3.0-4.0 04/01/2015 Pt Tul1571 PT 31.4 seconds 02/28/2015 Pt Boc9480 INR 3.2 02/28/2015 Pt Rmc5440 Low Intensity - 1.5-2.0 02/28/2015 Pt Xrc8181 Mod intensity - 2.0-3.0 02/28/2015 Pt Ggi9248 Hi intensity - 3.0-4.0 02/28/2015 Metabolic Ord15 NA 139 mEq/L 02/28/2015 Metabolic [...] Metabolic Ord15 CALCIUM 8.7 mg/dL 02/28/2015 Pt Ivk8360 PT 23.2 seconds 01/18/2015 Pt Gkd5434 INR 2.1 01/18/2015 Pt Lss4916 Low Intensity - 1.5-2.0 01/18/2015 Pt Rjh9105 Mod intensity - 2.0-3.0 01/18/2015 Pt Pgt1402 Hi intensity - 3.0-4.0 01/18/2015 Pt Wrt2212 PT 18.2 seconds 01/10/2015 Pt Jse6596 INR 1.6 01/10/2015 Pt Irh1837 Low Intensity - 1.5-2.0 01/10/2015 Pt Eph2618 Mod intensity - 2.0-3.0 01/10/2015 Pt Ana4446 Hi intensity - 3.0-4.0 01/10/2015 Review of Systems System Result Effective Dates Constitutional No recent illness 10/13/2016 Constitutional No [...] Date URINALYSIS NONAUTO W /O SCOPE CPT-4: 01035Fnyqqkk 08/26/2016 THER/PROPH/DIAG INJ SC/IM CPT-4: 59954Gnnwaeg 07/22/2016 TRIAMCINOLONE ACET I [place] NOS CPT-4: B5014Jwsraqj 07/22/2016 ROCEPHIN, PER 250 MG CPT-4: Y3292Ljmgvff 07/22/2016 TRIAMCINOLONE ACET I [place] NOS CPT-4: P3180Vzjvcnx 02/05/2015 Vital Signs Date Vital 10/13/2016 Blood Pressure 1: 118/76 Code: 8480-6 BMI: 32.6 Code: 37249-6 Heart Rate 1: 97 bpm Height: 5'7" SpO2: 98% Weight: 208 lbs 07/31/2016 Blood Pressure 1: 110/64 Code: 8480-6 BMI: 32.1 Code: 84843-1 Heart Rate 1: 79 bpm Height: 5'7" SpO2: 94% Weight: 205 lbs 07/22/2016 Blood Pressure 1: 108/74 Code: 8480-6 BMI: 32.1 Code: 16368-5 Heart Rate 1: 71 bpm Height: 5'7" SpO2: 97% Temperature: 36.9 (C ) / 98.4 (F) Weight: 205 lbs 05/01/2016 Blood Pressure 1: 120/72 Code: 8480-6 BMI: 32.7 Code: 78545-5 Heart Rate 1: 75 bpm Height: 5'7" SpO2: 94% Weight: 209 lbs 04/06/2016 Blood Pressure 1: 106/62 Code: 8480-6 BMI: 32.7 Code: 00321-8 Heart Rate 1: 83 bpm Height: 5'7" SpO2: 97% Weight: 209 lbs 03/06/2016 Blood Pressure 1: 112/68 Code: 8480-6 BMI: 32.7 Code: 12862-2 Heart Rate 1: 90 bpm Height: 5'7" SpO2: 97% Weight: 209 lbs 03/03/2016 Blood Pressure 1: 120/62 Code: 8480-6 BMI: 32.7 Code: 57600-1 Heart Rate 1: 92 bpm Height: 5'7" SpO2: 98% Weight: 209 lbs 02/07/2016 Blood Pressure 1: 110/64 Code: 8480-6 BMI: 32.7 Code: 09989-8 Heart Rate 1: 87 bpm Height: 5'7" SpO2: 97% Weight: 209 lbs 12/13/2015 Blood Pressure 1: 110/64 Code: 8480-6 BMI: 33.5 Code: 10415-6 Heart Rate 1: 90 bpm Height: 5'7" SpO2: 97% Weight: 214 lbs 12/03/2015 Blood Pressure 1: 132/76 Code: 8480-6 BMI: 33.4 Code: 78663-4 Heart Rate 1: 82 bpm Height: 5'7" SpO2: 99% Weight: 213 lbs 11/20/2015 Blood Pressure 1: 108/68 Code: 8480-6 BMI: 32.4 Code: 37093-0 Heart Rate 1: 77 bpm Height: 5'7" SpO2: 97% Weight: 207 lbs 09/17/2015 Blood Pressure 1: 122/76 Code: 8480-6 BMI: 33.0 Code: 36605-5 Heart Rate 1: 91 bpm Height: 5'7" SpO2: 97% Weight: 211 lbs 05/31/2015 Blood Pressure 1: 128/82 Code: 8480-6 BMI: 33.4 Code: 83591-4 Heart Rate 1: 98 bpm Height: 5'7" SpO2: 99% Weight: 213 lbs 02/05/2015 Blood Pressure 1: 128/80 Code: 8480-6 BMI: 32.6 Code: 71637-1 Heart Rate 1: 86 bpm Height: 5'7" SpO2: 97% Weight: 208 lbs 11/20/2014 Blood Pressure 1: 128/90 Code: 8480-6 BMI: 30.9 Code: 94414-7 Heart Rate 1: 94 bpm Height: 5'7" Weight: 197 lbs Functional Status No Functional Status data History of Present Illness Symptom Name Status Resu lt Effective Date Notes hypertension Onset and Resolution ongoing 10/13/2016 None [...] ongoing 11/20/2015 None Hospital Follow Up _ 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 PATIENT, LEVEL III Diagnosis: Other acute sinusitis[ICD10: J01.80] Diagnosis: Other allergic rhinitis[ICD10: J30.89] Roxie Pisano MD, [facility] CPT-4: 41486 07/31/2016 ([id number]) 47037 EST. P ATIENT, LEVEL III Diagnosis: Acute recurrent maxillary sinusitis[ICD10: J01.01] Valerie Pisano MD, [facility] CPT-4: 50987 07/22/2016 02882 EST. PATIENT, LEVEL IV Diagnosis: Essential (primary) hypertension[ICD10: I10] Diagnosis: Other allergic rhinitis[ICD10: J30.89] Diagnosis: Localized edema[ICD10: R60.0] Roxie Pisano MD, [facility] CPT-4: 12771 05/01/2016 85503 EST. PATIENT, LEVEL III Diagnosis: Cellulitis of left lower limb[ICD10: L03.116] Diagnosis: Localized edema[ICD10: R60.0] Roxie Pisano MD, [facility] CPT-4: 07081 04/06/2016 ([id number]) Miscellaneou s no charge Diagnosis: Cellulitis of left lower limb[ICD10: L03.116] Diagnosis: Localized edema[ICD10: R60.0] Roxie Pisano MD, [facility] CPT-4: 63360 03/10/2016 ([id number]) Alyciacellcarlitoou s no charge Diagnosis: Cellulitis of left lower limb[ICD10: L03.116] Roxie Pisano MD, [facility] CPT-4: 47057 03/06/2016 12081 EST. PATIENT, LEVEL IV Diagnosis: Cellulitis of left lower limb[ICD10: L03.116] Diagnosis: Localized edema[ICD10: R60.0] Roxie Pisano MD, [facility] CPT-4: 46360 03/03/2016 ([id number]) 70444 EST. P ATIENT, LEVEL III Diagnosis: Essential (primary) hypertension[ICD10: I10] Diagnosis: group home (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[ICD10: Z79.01] Diagnosis: Chronic atrial fibrillation[ICD10: I48.2] Brielle Pisano MD, [facility] CPT-4: 41454 02/07/2016 ([id number]) 98600 EST. P ATIENT, LEVEL III Diagnosis: Iliotibial band syndrome, right leg[ICD10: M76.31] Diagnosis: Localized edema[ICD10: R60.0] Brielle Pisano MD, [facility] CPT- 4: 60751 12/13/2015 ([id number]) 04471 EST. P ATIENT, LEVEL III Diagnosis: Localized edema[ICD10: R60.0] Diagnosis: Essential (primary) hypertension[ICD10: I10] Brielle Pisano MD, [facility] CPT-4: 70447 12/03/2015 ([id number]) 68352 EST. P ATIENT, LEVEL IV Diagnosis: group home (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[ICD10: Z79.01] Diagnosis: Other skin changes[ICD10: R23.8] Diagnosis: Localized edema[ICD10: R60.0] Diagnosis: Pain in right foot[ICD10: M79.671] Valerie Pisano MD, [facility] CPT- 4: 33658 11/20/2015 18214 EST. PATIENT, LEVEL IV Diagnosis: Essential (primary) hypertension[ICD10: I10] Diagnosis: group home (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[ICD10: Z79.01] Diagnosis: Muscle spasm of back[ICD10: M62.830] Roxie Pisano MD, [facility] CPT- 4: 53214 09/17/2015 ([id number]) 32990 EST. P ATIENT, LEVEL IV Diagnosis: Localized edema[ICD10: R60.0] Diagnosis: Other specified hypothyroidism[ICD10: E03.8] Diagnosis: Essential (primary) hypertension[ICD10: I10] Brielle Pisano MD, [facility] CPT-4: 03164 05/31/2015 ([id number]) 76839 EST. P ATIENT, LEVEL III Diagnosis: ALLERGIC RHINITIS[ICD9: 477.9] Diagnosis: ESSENTIAL HYPERTENSION[ICD9: 401.9] Brielle Pisano MD, [facility] CPT-4: 17876 02/05/2015 ([id number]) OFFICE VISI , [facility] - LEVEL 4 Diagnosis: ESSENTIAL HYPERTENSION[ICD9: 401.9] Diagnosis: HYPOTHYROIDISM[ICD9: 244.9] Diagnosis: ACTINIC KERATOSIS[ICD9: 702.0] Valerie Pisano MD, [facility] CPT-4: 04232 11/20/2014 Plan of Care Planned Activity Notes C odes Status Date Appointment: [facility] (15 min) Moderate 10/13/2016 Patient Education: Patient Medication Summary Completed 10/13/2016 Patient Education: Obesity Completed 10/13/2016 Patient Education: Hypertension Completed 10/13/2016 Care Plan: Urine Culture Pending 08/31/2016 Appointment: [facility]ares [facility] [facility] 08/27/2016 Appointment: Nurse Visit 08/26/2016 Patient Education: Patient Medication Summary Completed 08/26/2016 Appointment: Brielle Cavazos WPtel: [address] [place], [place] [phone] [place] (30 min) Complex 07/31/2016 Patient Education: Patient Medication Summary Completed 07/31/2016 Patient Education: Obesity Completed 07/31/2016 Appointment: [facility] [phone] [facility] (15 min) Moderate 07/22/2016 Patient Education: Patient Medication Summary Completed 07/22/2016 Patient Education: Obesity Completed 07/22/2016 Appointment: Brielle Cavazos WPtel: [phone] [phone] [place] (30 min) Complex 05/01/2016 Patient Education: Patient Medication Summary Completed 05/01/2016 Patient Education: Obesity Completed 05/01/2016 Patient Education: Hypertension Completed 05/01/2016 Appointment: [facility]ares [facility] [phone] [facility] (30 min) Complex 04/06/2016 Patient Education: Patient Medication Summary Completed 04/06/2016 Patient Education: Obesity Completed 04/06/2016 Appointment: Brielle Cavazos [facility]Ptel[phone] [place] (30 min) Complex 03/10/2016 Patient Education: Patient Medication Summary Completed 03/10/2016 Appointment: Bri[facility] Cavazos WPtel[phone] (15 min) Moderate 03/06/2016 Patient Education: Patient Medication Summary Completed 03/06/2016 Patient Education: Obesity Completed 03/06/2016 Appointment: [facility] [phone] [phone] [place] (15 min) Moderate 03/03/2016 Patient Education: Patient Medication Summary Completed 03/03/2016 Patient Education: Obesity Completed 03/03/2016 Patient Education: Patient Medication Summary Completed 02/14/2016 Patient Education: Patient Medication Summary Completed 02/12/2016 Appointment: Brielle Cavazos WPtel: [phone] [place] (30 min) Complex 02/07/2016 Patient Education: Patient Medication Summary Completed 02/07/2016 Patient Education: Obesity Completed 02/07/2016 Patient Education: Hypertension Completed 02/07/2016 Appointment: Brielle Cavazos WPtel: [phone] (30 min) Complex 02/04/2016 Appointment: Brielle Cavazos WPtel: [address] [place], [place] [phone] [place] (15 min) Moderate 12/13/2015 Patient Education: Patient Medication Summary Completed 12/13/2015 Patient Education: Obesity Completed 12/13/2015 Appointment: Brielle Cavazos WPtel: [phone] (30 min) Complex 12/03/2015 Patient Education: Patient Medication Summary Completed 12/03/2015 Patient Education: Obesity Completed 12/03/2015 Patient Education: Patient Medication Summary Completed 11/20/2015 Patient Education: Obesity Completed 11/20/2015 Care Plan: Cbc With Differential Pending 11/20/2015 Care Plan: Pt Pending 11/20/2015 Care Plan: Uric Acid Pending 11/20/2015 Appointment: (30 min) Complex 09/17/2015 Patient Education: Patient Medication Summary Completed 09/17/2015 Patient Education: Obesity Completed 09/17/2015 Patient Education: Hypertension Completed 09/17/2015 Patient Education: Patient Medication Summary Completed 08/26/2015 Patient Education: Patient Medication Summary Completed 08/22/2015 Appointment: (30 min) Complex 05/31/2015 Patient Education: Patient Medication Summary Completed 05/31/2015 Patient Education: Hypertension Completed 05/31/2015 Appointment: (30 min) Complex 05/30/2015 Appointment: (15 min) Moderate 02/05/2015 Patient Education: Patient Medication Summary Completed 02/05/2015 Patient Education: Hypertension Completed 02/05/2015 Appointment: Val[facility] Pisano WPtel[facility] [place] (15 min) Moderate 01/29/2015 Appointment: Valerie Pisano WPtel: [address] [place] [phone] [place] (S) New Patient 11/20/2014 Patient Education: Patient Medication Summary Completed 11/20/2014 Patient Education: Hypertension Completed 11/20/2014 Patient Education: Patient Medication Summary Completed 10/19/2014 Instructions No Instructions
--- OUTSIDE RECORDS SUMMARY | 2019-09-12 11:20 | XMS REPORT | CCD ---
Author Author Clara Pisano Organization Valerie Pisano MD, [facility] Address [address] [place] [address] Phone Care Team Providers Care Geospatial Intelligence Analyst Name Role Phone PP Unavailable CCM Unavailable Summary Purpose Interface Exchange Insurance Providers Payer name Policy type / Coverage type Covered constitution party ID Effective Begin Date Effective End Date WPS Medicare Part B Medicare Part B [id number] Unknown Unknown [employer] Medicare Part B [id number] Unknown Unknown Family history Sister Diagnosis Age At Onset defect Unknown Breast cancer Unknown Daughter Diagnosis Age At Onset Breast cancer Unknown Mother Diagnosis Age At Onset No Family Disease Entered N/A Social History Social History Element Codes Description Effective Dates Marital status Unknown M charissa [address] 11/20/2014 Number of children Unknown 6 11/20/2014 Employment Unknown Retir ed 11/20/[address]: 6068846 Quit over 10 years ago 1963 11/20/2014 [...] ICD-9: 401.9 ICD-10: I10 Active 04/30/2016 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 ICD-9: V58.61 ICD-10: [...] Unknown HYPOTHYROIDISM ICD-9: 244.9 Active 11/19/2014 Unknown 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 us e of anticoagulant therapy ICD-9: V58.61 Active 10/19/2014 Unknown Problems Condition Codes Effectiv e Dates Condition Status Chronic atrial fibri llation ICD-9: 427.31 ICD-10: I48.2 02/06/2016 Active Essential (primary) hypertension ICD-9: 401.9 ICD-10: I10 04/30/2016 Active correction (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 ICD-9: V58.61 ICD-10: [...] 11/19/2014 Active HYPOTHYROIDISM ICD-9: 244.9 11/19/2014 Active correction current us e of anticoagulant therapy ICD-9: V58.61 10/19/2014 Active Medications Medication Codes Instruc tions Start Date Stop Date Fill Instructions potassium chloride E R 20 mEq tablet,extended release RxNorm: 394545 TAKE ONE TABLET BY MOUTH DAILY 10/29/2016 01/26/2017 Active warfarin 5 mg tablet RxNorm: 663265 TAKE 1 AND 1/2 TABLETS BY MOUTH ON AND WEDNESDAY. TAKE ONLY 1 TABLET BY MOUTH ALL OTHER DAYS OF THE WEEK 10/27/2016 12/21/2016 Ac tive nystatin 100,000 uni t/gram topical cream RxNorm: 415750 1 Application TOP TID 10/13/2016 No Stop Date Active nitrofurantoin 50 mg capsule RxNorm: 639131 1 Capsule(s) PO BID 09/04/2016 09/03/2016 Inactive nitrofurantoin macro crystal 50 mg capsule RxNorm: 723481 1 Capsule(s) PO BID 09/04/2016 09/10/2016 In active Cipro 500 mg tablet RxNorm: 567120 1 Tablet(s) PO BID 08/26/2016 10/12/2016 Inactive Zyrtec 10 mg tablet RxNorm: 4135402 1 Tablet(s) PO daily 07/31/2016 08/29/2016 Inactive prednisone 20 mg tablet RxNorm: 143870 2 Tablet(s) PO daily 07/31/2016 08/02/2016 Inactive Kenalog 40 mg/mL zohra pension for injection RxNorm: 0414278 Milliliter(s) Inj 07/22/2016 07/22/2016 In active ceftriaxone 500 mg s olution for injection RxNorm: 9501658 Inj 07/22/2016 07/22/2016 Inactive Flonase Allergy Reli ef 50 mcg/actuation nasal spray,suspension RxNorm: 8284785 1 [place] NASAL BID 07/22/2016 08/20/2016 Inactive azithromycin 250 mg tablet RxNorm: 244958 2 Tablet(s) PO on day #1, then 1 pill daily x 4 days 07/22/2016 10/12/2016 Inactive warfarin 5 mg tablet RxNorm: 579761 TAKE 1 AND 1/2 TABLETS BY MOUTH ON AND WEDNESDAY. TAKE ONLY 1 TABLET BY MOUTH ALL OTHER DAYS OF THE WEEK 07/09/2016 09/30/2016 In active levothyroxine 125 mc g tablet RxNorm: 284191 Tablet(s) TAKE ONE TA BLET BY MOUTH DAILY ON AN EMPTY STOMACH 06/23/2016 03/19/2017 Active levothyroxine 125 mc g tablet RxNorm: 417458 TAKE ONE TABLET BY MO UTH DAILY ON AN EMPTY STOMACH 06/23/2016 03/19/2017 Active levothyroxine 125 mc g tablet RxNorm: 931856 TAKE ONE TABLET BY MO UTH DAILY ON AN EMPTY STOMACH 06/23/2016 06/22/2016 Inactive cetirizine 10 mg tablet RxNorm: 8400039 TAKE ONE TABLET BY MOUTH DAILY 06/16/2016 10/13/2016 In active furosemide 40 mg tablet RxNorm: 268646 Tablet(s) TAKE ONE TABLET BY MOUTH DAILY 06/05/2016 12/01/2016 Ac tive cetirizine 10 mg tablet RxNorm: 9379310 1 Tablet(s) PO daily 05/01/2016 05/30/2016 Inactive Levaquin 250 mg tablet RxNorm: 171061 Tablet(s) PO 2 pills day one and 1 pill day 2-7 04/06/2016 07/21/2016 Inactive warfarin 5 mg tablet RxNorm: 812756 Tablet(s) 1/2 TABLETS BY MOUTH ON AND WEDNESDAY. TAKE ONLY 1 TABLET BY MOUTH ALL OTHER DAYS OF THE WEEK 03/18/2016 07/07/2016 In active triamcinolone aceton sreekanth 0.025 % topical cream RxNorm: 0604577 1 Application TOP BI D 03/10/2016 No Stop Date Active potassium chloride E R 20 mEq tablet,extended release RxNorm: 281672 1 Tablet(s) PO daily 03/04/2016 06/01/2016 Inactive Levaquin 250 mg tablet RxNorm: 726184 Tablet(s) PO 2 pills day one and 1 pill day 2-7 03/04/2016 04/05/2016 Inactive Levaquin 250 mg tablet RxNorm: 238331 Tablet(s) PO 2 pills day one and 1 pill day 2-7 03/03/2016 03/03/2016 Inactive potassium chloride E R 20 mEq tablet,extended release RxNorm: 287777 1 Tablet(s) PO daily 03/03/2016 03/03/2016 Inactive Cipro 500 mg tablet RxNorm: 061311 1 Tablet(s) PO BID 02/20/2016 07/21/2016 Inactive Cipro 500 mg tablet RxNorm: 608013 1 Tablet(s) PO BID 02/20/2016 02/19/2016 Inactive furosemide 40 mg tablet RxNorm: 066040 TAKE ONE TABLET BY MOUTH DAILY 01/27/2016 01/26/2016 In active warfarin 5 mg tablet RxNorm: 561010 TAKE 1 AND 1/2 TABLETS BY MOUTH ON AND WEDNESDAY. TAKE ONLY 1 TABLET BY MOUTH ALL OTHER DAYS OF THE WEEK 01/27/2016 01/26/2016 In active furosemide 40 mg tablet RxNorm: 309782 TAKE ONE TABLET BY MOUTH DAILY 01/27/2016 06/04/2016 In active warfarin 5 mg tablet RxNorm: 534716 TAKE 1 AND 1/2 TABLETS BY MOUTH ON AND WEDNESDAY. TAKE ONLY 1 TABLET BY MOUTH ALL OTHER DAYS OF THE WEEK 01/27/2016 03/17/2016 In active potassium chloride E R 20 mEq tablet,extended release RxNorm: 297848 1 Tablet(s) PO daily 11/20/2015 03/02/2016 Inactive furosemide 40 mg tablet RxNorm: 329629 TAKE ONE TABLET BY MOUTH DAILY 11/12/2015 01/26/2016 In active Zovirax 5 % topical cream RxNorm: 454825 TOP QID 0 09/24/2015 09/23/2015 Inactive Zovirax 5 % topical cream RxNorm: 324413 TOP QID 0 09/24/2015 11/19/2015 Inactive nystatin 100,000 uni t/gram topical cream RxNorm: 910763 1 Application TOP TID 09/17/2015 10/12/2016 In active warfarin 5 mg tablet RxNorm: 135282 TAKE 1 AND 1/2 TABLETS BY MOUTH ON AND WEDNESDAY. TAKE ONLY 1 TABLET BY MOUTH ALL OTHER DAYS OF THE WEEK 08/19/2015 01/05/2016 In active loratadine 10 mg tablet RxNorm: 399085 1 Tablet(s) PO daily 07/30/2015 07/23/2016 Inactive loratadine 10 mg tablet RxNorm: 088590 1 Tablet(s) PO daily 07/30/2015 07/29/2015 Inactive furosemide 40 mg tablet RxNorm: 723112 TAKE ONE TABLET BY MOUTH DAILY 06/24/2015 11/11/2015 In active levothyroxine 125 mc g tablet RxNorm: 485119 1 Tablet(s) PO daily 05/31/2015 05/24/2016 Inactive furosemide 40 mg tablet RxNorm: 046390 1 Tablet(s) PO daily 04/05/2015 06/23/2015 Inactive warfarin 5 mg tablet RxNorm: 896378 TAKE 1 AND 1/2 TABLETS BY MOUTH ON AND WEDNESDAY. TAKE ONLY 1 TABLET BY MOUTH ALL OTHER DAYS OF THE WEEK 02/12/2015 07/29/2015 In active Flonase Allergy Reli ef 50 mcg/actuation nasal spray,suspension RxNorm: 2 [place] NASAL daily 02/05/2015 03/06/2015 Inactive Kenalog 40 mg/mL zohra pension for injection RxNorm: 5757171 Milliliter(s) Inj 02/05/2015 02/05/2015 In active warfarin 5 mg tablet RxNorm: 912342 Take 7.5mg (1 1/2 tablets) Wednesday and and 1 Tablet(s) PO (5mg) all other days 01/11/2015 02/09/2015 Inactive levothyroxine 125 mc g tablet RxNorm: 685155 1 Tablet(s) PO every other day 01/01/2015 05/30/2015 In active alternate with 150 levothyroxine 150 mc g tablet RxNorm: 362891 1 Tablet(s) PO every other day 01/01/2015 05/30/2015 In active alternate with 125 loratadine 10 mg tablet RxNorm: 813661 Tablet(s) PO as needed No Start Date Active Fish Oil 1,000 mg ca psule RxNorm: 1 Capsule(s) PO TID No Start Date Active magnesium 250 mg tablet RxNorm: 1 Tablet(s) PO daily No Start Date Active Vitamin D3 2,000 uni t tablet RxNorm: 313486 2 Tablet(s) PO daily No Start Date Active levothyroxine 125 mc g tablet RxNorm: 165797 1 Tablet(s) PO daily No Start Date 12/31/2014 Inactive levothyroxine 150 mc g tablet RxNorm: 918911 1 Tablet(s) PO daily No Start Date 12/31/2014 Inactive furosemide 40 mg tablet RxNorm: 145551 1 Tablet(s) PO daily No Start Date 04/04/2015 Inactive potassium chloride RxNorm: miscellaneous No Start Date 11/19/2015 Inactive Vitamin D2 oral RxNorm: 4018 oral No Start Date 05/31/2015 Inactive warfarin 5 mg tablet RxNorm: 564204 1 Tablet(s) PO daily No Start Date 01/10/2015 Inactive Medication Administered Medication Codes Instruc tions Start Date Status ceftriaxone 500 mg solution for injection RxNorm: 3531205 07/22/2016 No longer A ctive Kenalog 40 mg/mL suspension for injection RxNorm: 2496727 Milliliter 07/22/2016 No longer Active Kenalog 40 mg/mL suspension for injection RxNorm: 8580684 Milliliter 02/05/2015 No longer Active Immunizations Vaccine Codes Date Status Influenza CVX: 141 05/06 completed Influenza CVX: 141 04/28 completed Pneumococcal CVX: 33 06/1999 completed Assessments Condition Codes Effectiv e Dates correction (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 ICD-10: Z79.01 ICD-9: V58.61 10/13/2016 Tinea corporis ICD-10: B35.4 ICD-9: 110.5 10/13/2016 Other skin changes ICD-10: R23.8 ICD-9: 782.9 10/13/2016 Chronic atrial fibrillation ICD-10: I48.2 ICD-9: 427.31 10/13/2016 Essential (primary) hypertension ICD -10: I10 ICD-9: 401.9 10/13/2016 Dysuria ICD-10: R30.0 ICD-9: 788.1 08/26/2016 Other allergic rhinitis ICD-10: J30. 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 use of anticoagulant therapy ICD-9: V58.61 [...] Code Item Item Code Result Date Pt Nck5276 PT 26.1 seconds 11/26/2016 Pt Dka2436 INR 2.6 11/26/2016 Pt Xwl9630 Low Intensity - 1.5-2.0 11/26/2016 Pt Swy6775 Mod intensity - 2.0-3.0 11/26/2016 Pt Azk7302 Hi intensity - 3.0-4.0 11/26/2016 Pt Ndc6314 PT 26.2 seconds 10/29/2016 Pt Kom4046 INR 2.6 10/29/2016 Pt Xgq0634 Low Intensity - 1.5-2.0 10/29/2016 Pt Gbw9324 Mod intensity - 2.0-3.0 10/29/2016 Pt Uzh5574 Hi intensity - 3.0-4.0 10/29/2016 Pt Xue0609 PT 20.8 seconds 10/13/2016 Pt Hbc1054 INR 1.9 10/13/2016 Pt Jfa8471 Low Intensity - 1.5-2.0 10/13/2016 Pt Fwe7871 Mod intensity - 2.0-3.0 10/13/2016 Pt Ocu2092 Hi intensity - 3.0-4.0 10/13/2016 Pt Xkf8845 PT 26.5 seconds 10/01/2016 Pt Udd8989 INR 2.6 10/01/2016 Pt Idc4896 Low Intensity - 1.5-2.0 10/01/2016 Pt Kdd0882 Mod intensity - 2.0-3.0 10/01/2016 Pt Zsp7742 Hi intensity - 3.0-4.0 10/01/2016 Pt Qfm7190 PT 24.6 seconds 09/14/2016 Pt Hzd0705 INR 2.4 09/14/2016 Pt Soo8085 Low Intensity - 1.5-2.0 09/14/2016 Pt Rtu1411 Mod intensity - 2.0-3.0 09/14/2016 Pt Spk1785 Hi intensity - 3.0-4.0 09/14/2016 Pt Xjj6125 PT 18.0 seconds 09/07/2016 Pt Dwq2530 INR 1.6 09/07/2016 Pt Wae8072 Low Intensity - 1.5-2.0 09/07/2016 Pt Dab8140 Mod intensity - 2.0-3.0 09/07/2016 Pt Rtv4230 Hi intensity - 3.0-4.0 09/07/2016 Pt Isj2749 PT 23.7 seconds 08/12/2016 Pt Gcw3089 INR 2.2 08/12/2016 Pt Omu0034 Low Intensity - 1.5-2.0 08/12/2016 Pt Pxw3997 Mod intensity - 2.0-3.0 08/12/2016 Pt Tiq6401 Hi intensity - 3.0-4.0 08/12/2016 Pt Sfo9981 PT 21.6 seconds 07/27/2016 Pt Lpw1732 INR 2.0 07/27/2016 Pt Epa7563 Low Intensity - 1.5-2.0 07/27/2016 Pt Hbq1379 Mod intensity - 2.0-3.0 07/27/2016 Pt Svf5324 Hi intensity - 3.0-4.0 07/27/2016 Pt Yaf5846 PT 26.0 seconds 06/15/2016 Pt Uwh2117 INR 2.5 06/15/2016 Pt Tha0908 Low Intensity - 1.5-2.0 06/15/2016 Pt Vcl9238 Mod intensity - 2.0-3.0 06/15/2016 Pt Ziy4021 Hi intensity - 3.0-4.0 06/15/2016 Pt Edt0648 PT 18.8 seconds 06/01/2016 Pt Eoo2015 INR 1.7 06/01/2016 Pt Yec6517 Low Intensity - 1.5-2.0 06/01/2016 Pt Ekh8761 Mod intensity - 2.0-3.0 06/01/2016 Pt Jvh5188 Hi intensity - 3.0-4.0 06/01/2016 Pt Dsv6418 PT 20.8 seconds 05/12/2016 Pt Ell4717 INR 1.9 05/12/2016 Pt Vbe8669 Low Intensity - 1.5-2.0 05/12/2016 Pt Unr9603 Mod intensity - 2.0-3.0 05/12/2016 Pt Twx1656 Hi intensity - 3.0-4.0 05/12/2016 Pt Stk2783 PT 24.5 seconds 04/10/2016 Pt Zsg3617 INR 2.4 04/10/2016 Pt Ada7188 Low Intensity - 1.5-2.0 04/10/2016 Pt Ucc3494 Mod intensity - 2.0-3.0 04/10/2016 Pt Mzg3898 Hi intensity - 3.0-4.0 04/10/2016 Pt Vml7719 PT 26.4 seconds 03/10/2016 Pt Glj6963 INR 2.6 03/10/2016 Pt Wsr8715 Low Intensity - 1.5-2.0 03/10/2016 Pt Hya5019 Mod intensity - 2.0-3.0 03/10/2016 Pt Qqd5973 Hi intensity - 3.0-4.0 03/10/2016 Pt Oeo5349 PT 24.9 seconds 03/06/2016 Pt Jud9192 INR 2.4 03/06/2016 Pt Dgq8846 Low Intensity - 1.5-2.0 03/06/2016 Pt Goc2783 Mod intensity - 2.0-3.0 03/06/2016 Pt Wdy0211 Hi intensity - 3.0-4.0 03/06/2016 Pt Ljr5961 PT 21.9 seconds 02/25/2016 Pt Ifc6724 INR 2.0 02/25/2016 Pt Bfu8202 Low Intensity - 1.5-2.0 02/25/2016 Pt Mij2972 Mod intensity - 2.0-3.0 02/25/2016 Pt Jpl4512 Hi intensity - 3.0-4.0 02/25/2016 Pt Zbm0140 PT 21.8 seconds 02/21/2016 Pt Mqa6863 INR 2.0 02/21/2016 Pt Nxu4401 Low Intensity - 1.5-2.0 02/21/2016 Pt Azv9182 Mod intensity - 2.0-3.0 02/21/2016 Pt Wyn5343 Hi intensity - 3.0-4.0 02/21/2016 Culture Urine [id number] URI NE CULTURE SEE NOTES 02/20/2016 Culture Urine [id number] Con tinued Results 02/20/2016 Urine Culture Ucult [...] 29.2 pg 02/14/2016 Cbc With Differential Ord2 Estill% 9.3 % 02/14/2016 Cbc With Differential Ord2 Eos% 4.8 % 02/14/2016 Cbc With Differential Ord2 MCHC 31.8 pg 02/14/2016 Cbc With Differential Ord2 Baso% 0.6 % 02/14/2016 Cbc With Differential Ord2 PLT 355 K/ul 02/14/2016 Cbc With Differential Ord2 Neut ABS# 4.94 K/ul 02/14/2016 Cbc With Differential Ord2 RDW 16.2 % 02/14/2016 Cbc With Differential Ord2 Lymph ABS# 2.55 K/ul 02/14/2016 Cbc With Differential Ord2 Estill ABS# 0.8 K/ul 02/14/2016 Cbc With Differential Ord2 Eos ABS# 0.4 K/ul 02/14/2016 Cbc With Differential Ord2 Baso ABS# 0.1 K/ul 02/14/2016 Tsh Ord6 hTSH II 0.80 uIU/mL 02/14/2016 Pt Gfp9302 PT 27.1 seconds 02/14/2016 Pt Rhq6837 INR 2.7 02/14/2016 Pt Alx1016 Low Intensity - 1.5-2.0 02/14/2016 Pt Jns5388 Mod intensity - 2.0-3.0 02/14/2016 Pt Ljv1649 Hi intensity - 3.0-4.0 02/14/2016 Free T4 Qii602 FREE T4 1.87 ng/dL 02/14/2016 Comp Metabolic Cgt314 NA 139 mEq/L 02/14/2016 Comp Metabolic Yjh356 K 3.8 mEq/L 02/14/2016 Comp Metabolic Ulm457 CL 103 mEq/L 02/14/2016 Comp Metabolic Txq889 CO2 27.0 mEq/L 02/14/2016 Comp Metabolic Wib904 AN ION GAP 13 02/14/2016 Comp Metabolic Lzo457 GL UCOSE 91 mg/dL 02/14/2016 Comp Metabolic Kmj132 Cr eat 1.0 mg/dL 02/14/2016 Comp Metabolic Osd766 eG FR 58 ml/min/1.73m2 02/13 Comp Metabolic Lbj133 BUN 16 mg/dL 02/14/2016 Comp Metabolic Hwl203 B/ C Ratio 16.2 Ratio 02/14/2016 Comp Metabolic Ggt867 CA LCIUM 9.0 mg/dL 02/14/2016 Comp Metabolic Hlz465 AL K PHOS 88 U/L 02/14/2016 Comp Metabolic Gvf102 T(SGOT) 17 U/L 02/14/2016 Comp Metabolic Zzl736 AL T(SGPT) 12 U/L 02/14/2016 Comp Metabolic Nga959 BI LI T 0.6 mg/dL 02/14/2016 Comp Metabolic Aaf727 AL BUMIN 3.2 g/dL 02/14/2016 Comp Metabolic Btm391 TP RO 5.8 g/dL 02/14/2016 Comp Metabolic Zqi026 GL OB 2.6 g/dL 02/14/2016 Comp Metabolic Iiy698 A/ G Ratio 1.3 Ratio 02/14/2016 Comp Metabolic Jco334 Os mo 278 mOsmo 02/14/2016 Pt Old4692 PT 34.6 seconds 02/06/2016 Pt Ovc9186 INR 3.7 02/06/2016 Pt Ucq1373 Low Intensity - 1.5-2.0 02/06/2016 Pt Kdj2040 Mod intensity - 2.0-3.0 02/06/2016 Pt Ofm4523 Hi intensity - 3.0-4.0 02/06/2016 Pt Wwo5613 PT 33.3 seconds 01/23/2016 Pt Ipk6978 INR 3.5 01/23/2016 Pt Btg1938 Low Intensity - 1.5-2.0 01/23/2016 Pt Jey7171 Mod intensity - 2.0-3.0 01/23/2016 Pt Cfk9498 Hi intensity - 3.0-4.0 01/23/2016 Pt Hgo6470 PT 30.5 seconds 12/31/2015 Pt Ksr7595 INR 3.2 12/31/2015 Pt Aml1030 Low Intensity - 1.5-2.0 12/31/2015 Pt Zbw1344 Mod intensity - 2.0-3.0 12/31/2015 Pt Qzm8747 Hi intensity - 3.0-4.0 12/31/2015 Pt Pwt4102 PT 35.6 seconds 12/25/2015 Pt Osc7803 INR 3.9 12/25/2015 Pt Zjf7802 Low Intensity - 1.5-2.0 12/25/2015 Pt Vok2449 Mod intensity - 2.0-3.0 12/25/2015 Pt Cjn5125 Hi intensity - 3.0-4.0 12/25/2015 Pt Zal6212 PT 30.8 seconds 11/21/2015 Pt Kcg3425 INR 3.2 11/21/2015 Pt Qjp0881 Low Intensity - 1.5-2.0 11/21/2015 Pt Uhc1741 Mod intensity - 2.0-3.0 11/21/2015 Pt Ctr8288 Hi intensity - 3.0-4.0 11/21/2015 Uric Acid Ord77 Uric A 5.9 mg/dL 11/21/2015 Cbc With Differential Ord2 WBC 10.76 K/ul 11/20/2015 Cbc With Differential Ord2 RBC 4.04 M/ul 11/20/2015 Cbc With Differential Ord2 HGB 12.1 g/dl 11/20/2015 Cbc With Differential Ord2 Neut% 65.5 % 11/20/2015 Cbc With Differential Ord2 HCT 38.5 % 11/20/2015 Cbc With Differential Ord2 MCV 95.3 fl 11/20/2015 Cbc With Differential Ord2 Lymph% 23.3 % 11/20/2015 Cbc With Differential Ord2 MCH 30.0 pg 11/20/2015 Cbc With Differential Ord2 Estill% 8.1 % 11/20/2015 Cbc With Differential Ord2 [...] 2.51 K/ul 11/20/2015 Cbc With Differential Ord2 Estill ABS# 0.9 K/ul 11/20/2015 Cbc With Differential Ord2 Eos ABS# 0.3 K/ul 11/20/2015 Cbc With Differential Ord2 Baso ABS# 0.0 K/ul 11/20/2015 Comp Metabolic Pvy679 NA 137 mEq/L 10/22/2015 Comp Metabolic Pbm969 K 3.9 mEq/L 10/22/2015 Comp Metabolic Uol884 CL 100 mEq/L 10/22/2015 Comp Metabolic Lgd356 CO2 31.0 mEq/L 10/22/2015 Comp Metabolic Rrx144 AN ION GAP 10 10/22/2015 Comp Metabolic Tyj030 GL UCOSE 94 mg/dL 10/22/2015 Comp Metabolic Hqh946 Cr eat 1.0 mg/dL 10/22/2015 Comp Metabolic Cwv278 eG FR 55 ml/min/1.73m2 10/21 Comp Metabolic Yqq619 BUN 19 mg/dL 10/22/2015 Comp Metabolic Whv749 B/ C Ratio 18.3 Ratio 10/22/2015 Comp Metabolic Bda245 CA LCIUM 8.8 mg/dL 10/22/2015 Comp Metabolic Jch451 AL K PHOS 83 U/L 10/22/2015 Comp Metabolic Xxs220 T(SGOT) 15 U/L 10/22/2015 Comp Metabolic Rdz278 AL T(SGPT) 13 U/L 10/22/2015 Comp Metabolic Ewq471 BI LI T 0.9 mg/dL 10/22/2015 Comp Metabolic Gjk789 AL BUMIN 2.8 g/dL 10/22/2015 Comp Metabolic Ozu690 TP RO 5.4 g/dL 10/22/2015 Comp Metabolic Bqr447 GL OB 2.6 g/dL 10/22/2015 Comp Metabolic Txb350 A/ G Ratio 1.1 Ratio 10/22/2015 Comp Metabolic Vsa080 Os mo 276 mOsmo 10/22/2015 Bili D Ord93 BILI D 0.1 mg/dL 10/22/2015 Bili D Ord93 BILI I 0.8 mg/dL 10/22/2015 Pt Vam1161 PT 22.8 seconds 10/22/2015 Pt Idc8245 INR 2.1 10/22/2015 Pt Dnk5284 Low Intensity - 1.5-2.0 10/22/2015 Pt Mhr5045 Mod intensity - 2.0-3.0 10/22/2015 Pt Mvu3705 Hi intensity - 3.0-4.0 10/22/2015 Pt Gqi3325 PT 28.0 seconds 09/16/2015 Pt Gih8903 INR 2.7 09/16/2015 Pt Mtp6016 Low Intensity - 1.5-2.0 09/16/2015 Pt Yla8366 Mod intensity - 2.0-3.0 09/16/2015 Pt Edb0906 Hi intensity - 3.0-4.0 09/16/2015 Tsh Ord6 hTSH II 1.40 uIU/mL 09/16/2015 Free T4 Pyn654 FREE T4 1.73 ng/dL 09/16/2015 Lipid Ord30 CHOL 169 mg/dL 09/16/2015 Lipid Ord30 HDL 66.0 mg/dl 09/16/2015 Lipid Ord30 TRIG 78 mg/dL 09/16/2015 Lipid Ord30 LDL 87 mg/dL 09/16/2015 Lipid Ord30 C/HDL 2.6 Ratio 09/16/2015 Pt Tmd1818 PT 26.6 seconds 08/21/2015 Pt Eqq1016 INR 2.6 08/21/2015 Pt Tqh6277 Low Intensity - 1.5-2.0 08/21/2015 Pt Qsp3984 Mod intensity - 2.0-3.0 08/21/2015 Pt Wmw9149 Hi intensity - 3.0-4.0 08/21/2015 Comp Metabolic Pov844 NA 141 mEq/L 08/08/2015 Comp Metabolic Ozy550 K 3.3 mEq/L 08/08/2015 Comp Metabolic Rmy429 CL 102 mEq/L 08/08/2015 Comp Metabolic Vfc141 CO2 31.0 mEq/L 08/08/2015 Comp Metabolic Ejv806 AN ION GAP 11 08/08/2015 Comp Metabolic Thi220 GL UCOSE 83 mg/dL 08/08/2015 Comp Metabolic Ygj421 Cr eat 1.0 mg/dL 08/08/2015 Comp Metabolic Qxo131 eG FR 55 ml/min/1.73m2 08/08 Comp Metabolic Osf642 BUN 19 mg/dL 08/08/2015 Comp Metabolic Fhr941 B/ C Ratio 18.3 Ratio 08/08/2015 Comp Metabolic Ote714 CA LCIUM 8.9 mg/dL 08/08/2015 Comp Metabolic Dxh064 AL K PHOS 84 U/L 08/08/2015 Comp Metabolic Dgg745 T(SGOT) 20 U/L 08/08/2015 Comp Metabolic Hui955 AL T(SGPT) 18 U/L 08/08/2015 Comp Metabolic Sox315 BI LI T 0.6 mg/dL 08/08/2015 Comp Metabolic Ulf555 AL BUMIN 3.3 g/dL 08/08/2015 Comp Metabolic Spw686 TP RO 5.9 g/dL 08/08/2015 Comp Metabolic Kov412 GL OB 2.6 g/dL 08/08/2015 Comp Metabolic Pnd469 A/ G Ratio 1.3 Ratio 08/08/2015 Comp Metabolic Qeo135 Os mo 283 mOsmo 08/08/2015 Cbc With Differential Ord2 WBC 10.67 K/ul 08/08/2015 Cbc With Differential Ord2 RBC 4.77 M/ul 08/08/2015 Cbc With Differential Ord2 HGB 14.3 g/dl 08/08/2015 Cbc With Differential Ord2 Neut% 60.4 % 08/08/2015 Cbc With Differential Ord2 HCT 43.7 % 08/08/2015 Cbc With Differential Ord2 MCV 91.6 fl 08/08/2015 Cbc With Differential Ord2 Lymph% 27.2 % 08/08/2015 Cbc With Differential Ord2 MCH 30.0 pg 08/08/2015 Cbc With Differential Ord2 Estill% 8.2 % 08/08/2015 Cbc With Differential Ord2 MCHC 32.7 pg 08/08/2015 Cbc With Differential Ord2 Eos% 3.8 % 08/08/2015 Cbc With Differential Ord2 Baso% 0.4 % 08/08/2015 Cbc With Differential Ord2 PLT 296 K/ul 08/08/2015 Cbc With Differential Ord2 RDW 16.0 % 08/08/2015 Cbc With Differential Ord2 Neut ABS# 6.44 K/ul 08/08/2015 Cbc With Differential Ord2 Lymph ABS# 2.90 K/ul 08/08/2015 Cbc With Differential Ord2 Estill ABS# 0.9 K/ul 08/08/2015 Cbc With Differential [...] Ord93 BILI I 0.5 mg/dL 08/08/2015 Pt Cma9473 PT 31.8 seconds 08/05/2015 Pt Kpy4497 INR 3.2 08/05/2015 Pt Ugn5800 Low Intensity - 1.5-2.0 08/05/2015 Pt Wdo8597 Mod intensity - 2.0-3.0 08/05/2015 Pt Dzb6166 Hi intensity - 3.0-4.0 08/05/2015 Pt Qrj1714 PT 27.4 seconds 06/27/2015 Pt Ifs8600 INR 2.6 06/27/2015 Pt Oue5126 Low Intensity - 1.5-2.0 06/27/2015 Pt Zxz7745 Mod intensity - 2.0-3.0 06/27/2015 Pt Dtj7050 Hi intensity - 3.0-4.0 06/27/2015 Tsh Ord6 [...] Ord2 RDW 15.1 % 05/31/2015 Free T4 Wtg159 FREE T4 1.89 ng/dL 05/31/2015 Comp Metabolic Vpz894 NA 140 mEq/L 05/31/2015 Comp Metabolic Qds199 K 3.3 mEq/L 05/31/2015 Comp Metabolic Rnr872 CL 99 mEq/L 05/31/2015 Comp Metabolic Xar448 CO2 30.0 mEq/L 05/31/2015 Comp Metabolic Plt630 AN ION GAP 14 05/31/2015 Comp Metabolic Kco592 GL UCOSE 70 mg/dL 05/31/2015 Comp Metabolic Mxm341 Cr eat 1.0 mg/dL 05/31/2015 Comp Metabolic Qhy688 eG FR 55 ml/min/1.73m2 05/31 Comp Metabolic Pik589 BUN 23 mg/dL 05/31/2015 Comp Metabolic Gii192 B/ C Ratio 22.1 Ratio 05/31/2015 Comp Metabolic Jmw874 CA LCIUM 8.9 mg/dL 05/31/2015 Comp Metabolic Mfs330 AL K PHOS 86 U/L 05/31/2015 Comp Metabolic Coq456 T(SGOT) 28 U/L 05/31/2015 Comp Metabolic Rqd916 AL T(SGPT) 30 U/L 05/31/2015 Comp Metabolic Oqd388 BI LI T 0.4 mg/dL 05/31/2015 Comp Metabolic Sqx299 AL BUMIN 3.3 g/dL 05/31/2015 Comp Metabolic Rcw272 TP RO 6.0 g/dL 05/31/2015 Comp Metabolic Usf932 GL OB 2.7 g/dL 05/31/2015 Comp Metabolic Nnd813 A/ G Ratio 1.2 Ratio 05/31/2015 Comp Metabolic Vdw450 Os mo 282 mOsmo 05/31/2015 Pt Dlb5161 PT 23.3 seconds 04/15/2015 Pt Cdp4930 INR 2.2 04/15/2015 Pt Xjc2105 Low Intensity - 1.5-2.0 04/15/2015 Pt Bbh4771 Mod intensity - 2.0-3.0 04/15/2015 Pt Oxu2496 Hi intensity - 3.0-4.0 04/15/2015 Pt Uzj4777 PT 19.5 seconds 04/04/2015 Pt Yky1002 INR 1.7 04/04/2015 Pt Hvl0032 Low Intensity - 1.5-2.0 04/04/2015 Pt Fjp0745 Mod intensity - 2.0-3.0 04/04/2015 Pt Nio6704 Hi intensity - 3.0-4.0 04/04/2015 Pt Npa8291 PT 39.8 seconds 04/01/2015 Pt Voz1376 INR 4.3 04/01/2015 Pt Vwm4912 Low Intensity - 1.5-2.0 04/01/2015 Pt Ijp5112 Mod intensity - 2.0-3.0 04/01/2015 Pt Vas9421 Hi intensity - 3.0-4.0 04/01/2015 Metabolic Ord15 [...] Metabolic Ord15 CALCIUM 8.7 mg/dL 02/28/2015 Pt Fow2671 PT 31.4 seconds 02/28/2015 Pt Ihf9850 INR 3.2 02/28/2015 Pt Efh5437 Low Intensity - 1.5-2.0 02/28/2015 Pt Qxq4649 Mod intensity - 2.0-3.0 02/28/2015 Pt Dlq0636 Hi intensity - 3.0-4.0 02/28/2015 Pt Dad3104 PT 23.2 seconds 01/18/2015 Pt Jcs6940 INR 2.1 01/18/2015 Pt Jeq2764 Low Intensity - 1.5-2.0 01/18/2015 Pt Lvo5927 Mod intensity - 2.0-3.0 01/18/2015 Pt Lnx5047 Hi intensity - 3.0-4.0 01/18/2015 Pt Krp5111 PT 18.2 seconds 01/10/2015 Pt Jei4891 INR 1.6 01/10/2015 Pt Gyi5238 Low Intensity - 1.5-2.0 01/10/2015 Pt Zxd7736 Mod intensity - 2.0-3.0 01/10/2015 Pt Dcu2070 Hi intensity - 3.0-4.0 01/10/2015 Review of [...] Date URINALYSIS NONAUTO W /O SCOPE CPT-4: [id number] 08/26/2016 THER/PROPH/DIAG INJ SC/IM CPT-4: 96480Cmdokbh 07/22/2016 TRIAMCINOLONE ACET I [place] NOS CPT-4: [id number] 07/22/2016 ROCEPHIN, PER 250 MG CPT-4: B0212Txntwsw 07/22/2016 TRIAMCINOLONE ACET I [place] NOS CPT-4: [id number] 02/05/2015 Vital Signs Date Vital 10/13/2016 Blood Pressure 1: 118/76 Code: 8480-6 BMI: 32.6 Code: 85763-5 Heart Rate 1: 97 bpm Height: 5'7" SpO2: 98% Weight: 208 lbs 07/31/2016 Blood Pressure 1: 110/64 Code: 8480-6 BMI: 32.1 Code: 15730-1 Heart Rate 1: 79 bpm Height: 5'7" SpO2: 94% Weight: 205 lbs 07/22/2016 Blood Pressure 1: 108/74 Code: 8480-6 BMI: 32.1 Code: 79748-7 Heart Rate 1: 71 bpm Height: 5'7" SpO2: 97% Temperature: 36.9 (C ) / 98.4 (F) Weight: 205 lbs 05/01/2016 Blood Pressure 1: 120/72 Code: 8480-6 BMI: 32.7 Code: 18666-3 Heart Rate 1: 75 bpm Height: 5'7" SpO2: 94% Weight: 209 lbs 04/06/2016 Blood Pressure 1: 106/62 Code: 8480-6 BMI: 32.7 Code: 16380-4 Heart Rate 1: 83 bpm Height: 5'7" SpO2: 97% Weight: 209 lbs 03/06/2016 Blood Pressure 1: 112/68 Code: 8480-6 BMI: 32.7 Code: 74402-7 Heart Rate 1: 90 bpm Height: 5'7" SpO2: 97% Weight: 209 lbs 03/03/2016 Blood Pressure 1: 120/62 Code: 8480-6 BMI: 32.7 Code: 44652-4 Heart Rate 1: 92 bpm Height: 5'7" SpO2: 98% Weight: 209 lbs 02/07/2016 Blood Pressure 1: 110/64 Code: 8480-6 BMI: 32.7 Code: 19929-3 Heart Rate 1: 87 bpm Height: 5'7" SpO2: 97% Weight: 209 lbs 12/13/2015 Blood Pressure 1: 110/64 Code: 8480-6 BMI: 33.5 Code: 14430-7 Heart Rate 1: 90 bpm Height: 5'7" SpO2: 97% Weight: 214 lbs 12/03/2015 Blood Pressure 1: 132/76 Code: 8480-6 BMI: 33.4 Code: 01936-7 Heart Rate 1: 82 bpm Height: 5'7" SpO2: 99% Weight: 213 lbs 11/20/2015 Blood Pressure 1: 108/68 Code: 8480-6 BMI: 32.4 Code: 21558-5 Heart Rate 1: 77 bpm Height: 5'7" SpO2: 97% Weight: 207 lbs 09/17/2015 Blood Pressure 1: 122/76 Code: 8480-6 BMI: 33.0 Code: 09416-9 Heart Rate 1: 91 bpm Height: 5'7" SpO2: 97% Weight: 211 lbs 05/31/2015 Blood Pressure 1: 128/82 Code: 8480-6 BMI: 33.4 Code: 11229-1 Heart Rate 1: 98 bpm Height: 5'7" SpO2: 99% Weight: 213 lbs 02/05/2015 Blood Pressure 1: 128/80 Code: 8480-6 BMI: 32.6 Code: 57489-2 Heart Rate 1: 86 bpm Height: 5'7" SpO2: 97% Weight: 208 lbs 11/20/2014 Blood Pressure 1: 128/90 Code: 8480-6 BMI: 30.9 Code: 22113-3 Heart Rate 1: 94 bpm Height: 5'7" [...] ongoing 11/20/2015 None Hospital Follow Up _ [facility] er: fall 09/17/2015 None Hospital Follow Up [...] Findings Denies fever 05/31/2015 None 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[place] 02/05/2015 None hypothyroid Pertinent Findings coarse [...] Denies extremity weakness 11/20/2014 None 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vestre 11/20/2014 None hypothyroid Pertinent Findings coarse hair 11/20/2014 None hypothyroid Pertinent Findings dry skin 11/20/2014 None hypothyroid Pertinent Findings hair loss 11/20/2014 None edema Quality intermitte nt 11/20/2014 None edema Location on both l egs 11/20/2014 None edema Location on both a nkles 11/20/2014 None Advance Directives Advance Directives Present Encounters Encounter Performer Loca tion Codes Date ( 63440 EST. 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 PATIENT, LEVEL III Diagnosis: Other acute sinusitis[ICD10: J01.80] Diagnosis: Other allergic rhinitis[ICD10: J30.89] Roxie Pisano MD, [facility] CPT-4: 59527 07/31/2016 ([id number]) 41860 EST. [facility] Diagnosis: Acute recurrent maxillary sinusitis[ICD10: J01.01] Valerie Pisano MD, [facility] CPT-4: 77319 07/22/2016 67000 EST. PATIENT, LEVEL IV Diagnosis: Essential (primary) hypertension[ICD10: I10] Diagnosis: Other allergic rhinitis[ICD10: J30.89] Diagnosis: Localized edema[ICD10: R60.0] Roxie Pisano MD, [facility] CPT-4: 51621 05/01/2016 20819 EST. PATIENT, LEVEL III Diagnosis: Cellulitis of left lower limb[ICD10: L03.116] Diagnosis: Localized edema[ICD10: R60.0] Roxie Pisano MD, [facility] CPT-4: 39685 04/06/2016 ([id number]) Miscellaneou s no charge Diagnosis: Cellulitis of left lower limb[ICD10: L03.116] Diagnosis: Localized edema[ICD10: R60.0] Roxie Pisano MD, [facility] CPT-4: 40041 03/10/2016 ([id number]) Miscellaneou s no charge Diagnosis: Cellulitis of left lower limb[ICD10: L03.116] Roxie Pisano MD, [facility] CPT-4: 09780 03/06/2016 40330 EST. PATIENT, LEVEL IV Diagnosis: Cellulitis of left lower limb[ICD10: L03.116] Diagnosis: Localized edema[ICD10: R60.0] Roxie Pisano MD, [facility] CPT-4: 97976 03/03/2016 ([id number]) 74988 EST. 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 P ATIENT, LEVEL III Diagnosis: Iliotibial band syndrome, right leg[ICD10: M76.31] Diagnosis: Localized edema[ICD10: R60.0] Brielle Pisano MD, [facility] CPT- 4: 13789 12/13/2015 ([id number]) 96079 EST. P ATIENT, LEVEL III Diagnosis: Localized edema[ICD10: R60.0] Diagnosis: Essential (primary) hypertension[ICD10: I10] Brielle Pisano MD, [facility] CPT-4: 00945 12/03/2015 ([id number]) 36235 EST. P ATIENT, LEVEL IV Diagnosis: correction (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[ICD10: Z79.01] Diagnosis: Other skin changes[ICD10: R23.8] Diagnosis: Localized edema[ICD10: R60.0] Diagnosis: Pain in right foot[ICD10: M79.671] Valerie Pisano MD, [facility] CPT- 4: 72191 11/20/2015 38601 EST. PATIENT, LEVEL IV Diagnosis: Essential (primary) hypertension[ICD10: I10] Diagnosis: correction (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[ICD10: Z79.01] Diagnosis: Muscle spasm of back[ICD10: M62.830] Roxie Pisano MD, [facility] CPT- 4: 08885 09/17/2015 ([id number]) 23935 EST. P ATIENT, LEVEL IV Diagnosis: Localized edema[ICD10: R60.0] Diagnosis: Other specified hypothyroidism[ICD10: E03.8] Diagnosis: Essential (primary) hypertension[ICD10: I10] Brielle Pisano MD, [facility] CPT-4: 83915 05/31/2015 ([id number]) 44965 EST. P ATIENT, LEVEL III Diagnosis: ALLERGIC RHINITIS[ICD9: 477.9] Diagnosis: ESSENTIAL HYPERTENSION[ICD9: 401.9] Brielle Pisano MD, [facility] CPT-4: 48811 02/05/2015 ([id number]) OFFICE VISI , NEW - LEVEL 4 Diagnosis: ESSENTIAL HYPERTENSION[ICD9: 401.9] Diagnosis: HYPOTHYROIDISM[ICD9: 244.9] Diagnosis: ACTINIC KERATOSIS[ICD9: 702.0] Valerie Pisano MD, [facility] CPT-4: 11239 11/20/2014 Plan of Care Planned Activity Notes C odes Status Date Visit Plan: Hypertension - well controll ed - continue with current medications, continue with no added salt diet. Pt has been encouraged to exercise daily.The pt has been advised to call the office if there are any acute concerns about change in blood pressure readings at home.Atrial Fibrillation - pt on chronic anticoagulation and is currently rate controlled. The pt is to have labs done as appropriate to monitor medication levels and is to report if they start to feel as if their heart rate is becoming uncontrolled.Chronic Anticoagulant use - Pt has been counseled about the anticoagulant, need for serial monitoring, and need for the pt to alert the physician as to any new bruising, or acute bleeding. Therapeutic goal for INR is between 2.0 and 3.5.Tinea of leg - rx for nystatin 10/13/2016 Appointment: Valerie Pisano WPtel: [address] [place], [place] [id number] (15 min) Moderate 10/13/2016 Patient Education: Patient Medication Summary Completed 10/13/2016 Patient Education: Obesity Completed 10/13/2016 Patient Education: Hypertension Completed 10/13/2016 Care Plan: Urine Culture Pending 08/31/2016 Appointment: Roxie Cazares WPtel: [facility] Lab Draw 08/27/2016 Appointment: Nurse Visit 08/26/2016 Patient Education: Patient Medication Summary Completed 08/26/2016 Visit Plan: Sinusitis - Pt has acute inf ection - pain in face, maxillary region, Pt informed to use decongestant, RX given to patient, sinus rinses also recommended. Call if symptoms do not show improvement.Allergies - chronic - recommended pt to use allergy medication as prescribed. Pt has been counseled as to the appropriate use of the medication. Pt to call if allergy symptoms are not controlled with the medication.If using nasal spray, instructions as follows: Nasal spray- use twice daily, one spray per nostril twice daily, after 30 minutes, rinse out nose with saline spray.. Use opposite hand per nostril to spray in the nasal steroid allergy spray. 07/31/2016 Appointment: Brielle Cavazos WPtel: [phone] [phone] (30 min) Complex 07/31/2016 Patient Education: Patient Medication Summary Completed 07/31/2016 Patient Education: Obesity Completed 07/31/2016 Visit Plan: Sinusitis - Pt has acute inf ection - pain in face, maxillary region, Pt informed to use decongestant, RX given to patient, sinus rinses also recommended. Call if symptoms do not show improvement. 07/22/2016 Appointment: Valerie Pisano WPtel: [phone] [phone] (15 min) Moderate 07/22/2016 Patient Education: Patient Medication Summary Completed 07/22/2016 Patient Education: Obesity Completed 07/22/2016 Visit Plan: Allergies - chronic - recomm ended pt to use allergy medication as prescribed. Pt has been counseled as to the appropriate use of the medication. Pt to call if allergy symptoms are not controlled with the medication.If using nasal spray, instructions as follows: Nasal spray- use twice daily, one spray per nostril twice daily, after 30 minutes, rinse out nose with saline spray.. Use opposite hand per nostril to spray in the nasal steroid allergy spray.Hypertension - well controlled - continue with current medications, continue with no added salt diet. Pt has been encouraged to exercise daily.The pt has been advised to call the office if there are any acute concerns about change in blood pressure readings at home.Edema - pt has been advised to elevate legs to prevent dependent edema, compression has been recommended to help to naturally decrease peripheral edema. Diuretic use has been discussed and pt has been instructed in appropriate use of such medication as necessary to further attempt to reduce peripheral edema. 05/01/2016 Appointment: Brielle Cavazos WPtel: [phone] [phone] (30 min) Complex 05/01/2016 Patient Education: Patient Medication Summary Completed 05/01/2016 Patient Education: Obesity Completed 05/01/2016 Patient Education: Hypertension Completed 05/01/2016 Visit Plan: Cellulitis - continue with o ral antibiotics as previously directed, return to clinic as previously directed, call for acute change in symptoms, worsening redness, warmth, discharge.Edema - pt has been advised to elevate legs to prevent dependent edema, compression has been recommended to help to naturally decrease peripheral edema. Diuretic use has been discussed and pt has been instructed in appropriate use of such medication as necessary to further attempt to reduce peripheral edema. 04/06/2016 Appointment: Roxie Cazares WPtel: [facility] (30 min) Complex 04/06/2016 Patient Education: Patient Medication Summary Completed 04/06/2016 Patient Education: Obesity Completed 04/06/2016 Visit Plan: left foot - improved - pt fi nished with antibiotics - continue to monitor - notify clinic with any concerns. Repeat INR today. 2015 Appointment: Brielle Cavazos WPtel: [phone] [phone] (30 min) Complex 03/10/2016 Patient Education: Patient Medication Summary Completed 03/10/2016 Visit Plan: Cellulitis - continue with o ral antibiotics as previously directed, return to clinic as previously directed, call for acute change in symptoms, worsening redness, warmth, discharge. 03/06/2016 Appointment: Brielle Cavazos WPtel: [phone] (15 min) Moderate 03/06/2016 Patient Education: Patient Medication Summary Completed 03/06/2016 Patient Education: Obesity Completed 03/06/2016 Visit Plan: Cellulitis - continue with o ral antibiotics as previously directed, return to clinic as previously directed, call for acute change in symptoms, worsening redness, warmth, discharge. 03/03/2016 Appointment: Brielle Cavazos WPtel: [phone] (15 min) Moderate 03/03/2016 Patient Education: Patient Medication Summary Completed 03/03/2016 Patient Education: Obesity Completed 03/03/2016 Patient Education: Patient Medication Summary Completed 02/14/2016 Patient Education: Patient Medication Summary Completed 02/12/2016 Visit Plan: Hypertension - well controll ed - continue with current medications, continue with no added salt diet. Pt has been encouraged to exercise daily.The pt has been advised to call the office if there are any acute concerns about change in blood pressure readings at home.Atrial Fibrillation - pt on chronic anticoagulation and is currently rate controlled. The pt is to have labs done as appropriate to monitor medication levels and is to report if they start to feel as if their heart rate is becoming uncontrolled.Chronic Anticoagulant use - Pt has been counseled about the anticoagulant, need for serial monitoring, and need for the pt to alert the physician as to any new bruising, or acute bleeding. Therapeutic goal for INR is between 2.0 and 3.5. 02/07/2016 Appointment: Brielle Cavazos WPtel: [phone] (30 min) Complex 02/07/2016 Patient Education: Patient Medication Summary Completed 02/07/2016 Patient Education: Obesity Completed 02/07/2016 Patient Education: Hypertension Completed 02/07/2016 Appointment: Brielle Cavazos WPtel: [phone] (30 min) Complex 02/04/2016 Visit Plan: Iliotibial band syndrome- re commended use of anti-inflammatories and pt given handout on Iliotibial band exercises. Refer for PTEdema - pt has been advised to elevate legs to prevent dependent edema, compression has been recommended to help to naturally decrease peripheral edema. Diuretic use has been discussed and pt has been instructed in appropriate use of such medication as necessary to further attempt to reduce peripheral edema. 12/13/2015 Appointment: Brielle Cavazos WPtel: [phone] [phone] (15 min) Moderate 12/13/2015 Patient Education: Patient Medication Summary Completed 12/13/2015 Patient Education: Obesity Completed 12/13/2015 Visit Plan: Edema - pt has been advised to elevate legs to prevent dependent edema, compression has been recommended to help to naturally decrease peripheral edema. Diuretic use has been discussed and pt has been instructed in appropriate use of such medication as necessary to further attempt to reduce peripheral edema.Hypertension - well controlled - continue with current medications, continue with no added salt diet. Pt has been encouraged to exercise daily.The pt has been advised to call the office if there are any acute concerns about change in blood pressure readings at home. 12/03/2015 Appointment: [phone] (30 min) Complex 12/03/2015 Patient Education: Patient Medication Summary Completed 12/03/2015 Patient Education: Obesity Completed 12/03/2015 Visit Plan: Edema - pt has been advised to elevate legs to prevent dependent edema, compression has been recommended to help to naturally decrease peripheral edema. Diuretic use has been discussed and pt has been instructed in appropriate use of such medication as necessary to further attempt to reduce peripheral edema.Bruising/Ecchymosis - recommended to have pt/inr checked, call if bruising does not improve. 11/20/2015 Patient Education: Patient Medication Summary Completed 11/20/2015 Patient Education: Obesity Completed 11/20/2015 Care Plan: Cbc With Differential Pending 11/20/2015 Care Plan: Pt Pending 11/20/2015 Care Plan: Uric Acid Pending 11/20/2015 Visit Plan: Allergies - chronic - recomm ended pt to use allergy medication as prescribed. Pt has been counseled as to the appropriate use of the medication. Pt to call if allergy symptoms are not controlled with the medication.If using nasal spray, instructions as follows: Nasal spray- use twice daily, one spray per nostril twice daily, after 30 minutes, rinse out nose with saline spray.. Use opposite hand per nostril to spray in the nasal steroid allergy spray.Chronic Anticoagulant use - Pt has been counseled about the anticoagulant, need for serial monitoring, and need for the pt to alert the physician as to any new bruising, or acute bleeding. Therapeutic goal for INR is between 2.0 and 3.5.Back pain - the patient was counseled to always first attempt to use modalities other than pain medication for alleviation of the muscle spasms and pain. Pt states that she has a muscle relaxant at home, but she was not sure she should be using it. Pt is to try the muscle relaxant and tiger balm. Re commended for the pt to go get a [...] Visit Plan: Edema - pt has been advised to elevate legs to prevent dependent edema, compression has been recommended to help to naturally decrease peripheral edema. Diuretic use has been discussed and pt has been instructed in appropriate use of such medication as necessary to further attempt to reduce peripheral edema.Hypothyroidism - pt with chronic hypothyroidism, continue with current medication, will monitor pt to signs or symptoms of lack of adequate supplementation. Pt is to continue with current dose of medication unless directed otherwise. Check labs at regular intervals wither q 3 months or q 6 months based on previous levels of control.Hypertension - well controlled - continue with current medications, continue with no added salt diet. Pt has been encouraged to exercise daily.The pt has been advised to call the office if there are any acute concerns about change in blood pressure readings at home. 05/31/2015 Appointment: (30 min) Complex 05/31/2015 Patient Education: Patient Medication Summary Completed 05/31/2015 Patient Education: Hypertension Completed 05/31/2015 Appointment: (30 min) Complex 05/30/2015 Visit Plan: Hypertension - well controll ed - continue with current medications, continue with no added salt diet. Pt has been encouraged to exercise daily.The pt has been advised to call the office if there are any acute concerns about change in blood pressure readings at home.Allergies - chronic - recommended pt to use allergy medication as prescribed. Pt has been counseled as to the appropriate use of the medication. Pt to call if allergy symptoms are not controlled with the medication.If using nasal spray, instructions as follows: Nasal spray- use twice daily, one spray per nostril twice daily, after 30 minutes, rinse out nose with saline spray.. Use opposite hand per nostril to spray in the nasal steroid allergy spray.Kenalog injection today in the office. 02/05/2015 Appointment: (15 min) Moderate 02/05/2015 Patient Education: Patient Medication Summary Completed 02/05/2015 Patient Education: Hypertension Completed 02/05/2015 Appointment: Valerie Pisano WPtel: [phone] [phone] (15 min) Moderate 01/29/2015 Visit Plan: Hypertension - well controll ed - continue with current medications, continue with no added salt diet. Pt has been encouraged to exercise daily.The pt has been advised to call the office if there are any acute concerns about change in blood pressure readings at home.Actinic kertosis - recommended pt to use neosporin on the lesions on face/neck.Hypothyroidism - pt with chronic hypothyroidism, continue with current medication, will monitor pt to signs or symptoms of lack of adequate supplementation. Pt is to continue with current dose of medication unless directed otherwise. Check labs at regular intervals wither q 3 months or q 6 months based on previous levels of control. 2014 App[facility]ment: [facility]el[phone] [facility] [place] [facility] New Patient 11/20/2014 Patient Education: Patient Medication Summary Completed 11/20/2014 Patient Education: Hypertension Completed 11/20/2014 Patient Education: Patient Medication Summary Completed 10/19/2014 Instructions Comment . Sinusitis - Pt has acute infection [...] spray in the nasal steroid allergy spray. Check your PT INR on Wednesday or [...] to further attempt to reduce peripheral edema. get blood work one w [place] before next appt - fasting labs Decrease [...] Tinea of leg - rx for nystatin check coumadin level on wednesday Nasal spray- [...] in symptoms, worsening redness, warmth, discharge. . left foot - [facility] ed - pt finished with antibiotics - continue to monitor - notify clinic with any concerns. Repeat INR today. . Allergies - chroni c - recommended [...] if they worsen, or with any concerns. . Edema - pt has bee [...] checked, call if bruising does not improve. CHECK LABS TODAY-WE WILL CALL [...] change in blood pressure readings at home. newton cabello or david while on the [...] change in symptoms, worsening redness, warmth, discharge. LASIX TAKE 40MG IN T HE MORNING [...] further attempt to reduce peripheral edema. Increase Lasix to tw ice a day [...] to further attempt to reduce peripheral edema. TAKE AN EXTRA LASIX AND POTASSIUM AT [...] change in blood pressure readings at home. Decrease to 2.5mg (1 /2 tab) on [...]
--- OUTSIDE RECORDS SUMMARY | 2019-09-12 11:24 | XMS REPORT | CCD ---
Author Author Clara Pisano Organization [facility] Address [address] [place] [address] Phone Care Team Providers Care Corsetier Name Role Phone PP Unavailable CCM Unavailable Summary Purpose Interface Exchange Insurance Providers Payer name Policy type / Coverage type Covered constitution party ID Effective Begin Date Effective End Date WPS Medicare Part B Medicare Part B [id number] 2018 Unknown [employer] Medicare Part B [id number] Unknown Family history Sister Diagnosis Age At Onset defect Unknown Breast cancer Unknown Daughter Diagnosis Age At Onset Breast cancer Unknown Mother Diagnosis Age At Onset No Family Disease Entered N/A Social History Social History Element Codes Description Effective Dates Marital status Unknown M [address] 11/20/2014 Number of children Unknown 6 11/20/2014 Employment Unknown Retir ed 11/20/[address]: 5414423 Quit over 10 years ago 1965 11/20/2014 [...] ICD-9: 401.9 ICD-10: I10 Active 04/30/2016 Unknown 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 ICD-9: V58.61 ICD-10: [...] hypertension ICD-9: 401.9 ICD-10: I10 04/30/2016 Active [facility] (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 ICD-9: [...] Fill Instructions Keflex 500 mg capsule RxNorm: 686821 1 Capsule(s) PO TID 10/27/2018 11/02/2018 Active ceftriaxone 500 mg s olution for injection RxNorm: 2319338 Inj 10/27/2018 10/27/2018 Inactive Coumadin 4 mg tablet RxNorm: 308723 1 Tablet(s) PO daily 08/16/2018 08/10/2019 Active this is an update to her RX - she will l et you know when she needs refill triamcinolone aceton sreekanth 0.025 % topical cream RxNorm: 8526066 1 Application TOP QI D 08/16/2018 No Stop Date Active levothyroxine 125 mc g tablet RxNorm: 552709 TAKE ONE TABLET BY [facility] DAILY ON WEDNESDAY, WED, AND WEDNESDAY, AND 1/2 TABLET ON , , WED AND WEDNESDAY. TAKE ON AN EMPTY STOMACH 08/04/2018 04/30/2019 Active meclizine 25 mg tablet RxNorm: 827279 1 Tablet(s) PO TID as needed Dizziness 07/22/2018 No Stop Date Active meclizine 25 mg tablet RxNorm: 889058 1 Tablet(s) PO TID as needed Dizziness 07/19/2018 07/21/2018 In active furosemide 40 mg tablet RxNorm: 778248 1 Tablet(s) BID take 1.5 tabs twice a da y x 7 days then 1 pill daily thereafter 07/11/2018 02/05/2019 Active Coumadin 4 mg tablet RxNorm: 185552 1 Tablet(s) PO daily except 1.5 pills on WEDNESDAY AND Wednesday07/11/2018 08/15/2018 Inactive this is an update to her RX - she will let you know when she needs refill warfarin 5 mg tablet RxNorm: 944498 Tablet(s) TAKE ONE TABLET BY MOUTH DAILY EXCEPT / TAKE 4 MG 04/06/2018 08/22/2019 Active diltiazem 60 mg tablet RxNorm: 578837 1/2 Tablet(s) PO QID 03/24/2018 No Stop Date Active levothyroxine 125 mc g tablet RxNorm: 999337 TAKE ONE TABLET BY [facility] DAILY ON WEDNESDAY, WED, AND WEDNESDAY, AND 1/2 TABLET ON , , WED AND WEDNESDAY. TAKE ON AN EMPTY STOMACH 02/02/2018 07/31/2018 Inactive Coumadin 4 mg tablet RxNorm: 619044 TAKE ONE TABLET BY MOUTH DAILY ON AND Wednesday10/14/2017 07/10/2018 Inactive nystatin 100,000 uni t/gram topical cream RxNorm: 800388 1 Application TOP TID 08/17/2017 No Stop Date Active Voltaren 1 % topical gel RxNorm: 001835 2 Gram(s) TOP TID luiz ly to shoulder and neck 08/17/2017 No Stop Date Active triamcinolone aceton sreekanth 0.025 % topical cream RxNorm: 1339606 1 Application TOP BI D 08/17/2017 08/15/2018 In active levothyroxine 125 mc g tablet RxNorm: 506960 1 Tablet(s) UD 1 pill wed/wed/wed, 1/2 pill //wed/wed take ON AN EMPTY STOMACH 08/05/2017 02/01/2018 Inactive Coumadin 4 mg tablet RxNorm: 609882 1 Tablet(s) PO Wed/07/29/2017 10/13/2017 Inactive warfarin 5 mg tablet RxNorm: 900932 TAKE 1 AND 1/2 TABLETS BY MOUTH ON AND WEDNESDAY. TAKE ONLY 1 TABLET BY MOUTH ALL OTHER DAYS OF THE WEEK 07/12/2017 04/05/2018 In active furosemide 40 mg tablet RxNorm: 085359 Tablet(s) BID TAKE ONE TABLET BY MOUTH D AILY 06/15/2017 07/10/2018 Inactive Voltaren 1 % topical gel RxNorm: 137088 2 Gram(s) TOP TID luiz ly to shoulder and neck 06/15/2017 08/16/2017 Inactive Keflex 500 mg capsule RxNorm: 283435 1 Capsule(s) PO TID 04/01/2017 04/07/2017 Inactive furosemide 40 mg tablet RxNorm: 721150 TAKE ONE TABLET BY MOUTH DAILY 03/18/2017 06/14/2017 In active Claritin-D 12 Hour 5 mg-120 mg tablet,extended release RxNorm: 3182315 1 Tablet(s) PO BID 03/16/2017 05/14/2017 Inactive Lipitor 20 mg tablet RxNorm: 424134 1 Tablet(s) PO daily 02/09/2017 03/10/2017 Inactive lisinopril 2.5 mg ta blet RxNorm: 603303 1 Tablet(s) PO daily 02/09/2017 03/10/2017 Inactive Nasonex 50 mcg/actua tion Payne RxNorm: 9984453 1 Payne NASAL BID 02/09/2017 09/06/2017 Inactive levothyroxine 125 mc g tablet RxNorm: 148830 1 Tablet(s) UD 1 pill wed/wed/wed, 1/2 pill //wed/sun take ON AN EMPTY STOMACH 02/09/2017 08/04/2017 Inactive fluorouracil 5 % top ical cream RxNorm: 523394 1 Application TOP BID 02/09/2017 02/18/2017 Inactive potassium chloride E R 20 mEq tablet,extended release RxNorm: 906870 Tablet(s) TAKE ONE TABLET BY MOUTH DAILY 02/08/2017 02/02/2018 Inactive warfarin 5 mg tablet RxNorm: 282449 TAKE 1 AND 1/2 TABLETS BY MOUTH ON AND WEDNESDAY. TAKE ONLY 1 TABLET BY MOUTH ALL OTHER DAYS OF THE WEEK 12/14/2016 05/30/2017 In active potassium chloride E R 20 mEq tablet,extended release RxNorm: 661955 TAKE ONE TABLET BY MOUTH DAILY 10/29/2016 01/26/2017 Inactive warfarin 5 mg tablet RxNorm: 153346 TAKE 1 AND 1/2 TABLETS BY MOUTH ON AND WEDNESDAY. TAKE ONLY 1 TABLET BY MOUTH ALL OTHER DAYS OF THE WEEK 10/27/2016 12/13/2016 In active nystatin 100,000 uni t/gram topical cream RxNorm: 585734 1 Application TOP TID 10/13/2016 08/16/2017 In active nitrofurantoin 50 mg capsule RxNorm: 113467 1 Capsule(s) PO BID 09/04/2016 09/03/2016 Inactive nitrofurantoin macro crystal 50 mg capsule RxNorm: 454447 1 Capsule(s) PO BID 09/04/2016 09/10/2016 In active Cipro 500 mg tablet RxNorm: 187183 1 Tablet(s) PO BID 08/26/2016 10/12/2016 Inactive Zyrtec 10 mg tablet RxNorm: 2560798 1 Tablet(s) PO daily 07/31/2016 08/29/2016 Inactive prednisone 20 mg tablet RxNorm: 542478 2 Tablet(s) PO daily 07/31/2016 08/02/2016 Inactive Kenalog 40 mg/mL zohra pension for injection RxNorm: 5082806 Milliliter(s) Inj 07/22/2016 07/22/2016 In active ceftriaxone 500 mg s olution for injection RxNorm: 9626600 Inj 07/22/2016 07/22/2016 Inactive Flonase Allergy Reli ef 50 mcg/actuation nasal spray,suspension RxNorm: 0150353 1 Payne NASAL BID 07/22/2016 08/20/2016 Inactive azithromycin 250 mg tablet RxNorm: 457328 2 Tablet(s) PO on day #1, then 1 pill daily x 4 days 07/22/2016 10/12/2016 Inactive warfarin 5 mg tablet RxNorm: 187490 TAKE 1 AND 1/2 TABLETS BY MOUTH ON AND WEDNESDAY. TAKE ONLY 1 TABLET BY MOUTH ALL OTHER DAYS OF THE WEEK 07/09/2016 09/30/2016 In active levothyroxine 125 mc g tablet RxNorm: 224045 Tablet(s) TAKE ONE TA BLET BY MOUTH DAILY ON AN EMPTY STOMACH 06/23/2016 02/08/2017 Inactive levothyroxine 125 mc g tablet RxNorm: 236687 TAKE ONE TABLET BY [facility] DAILY ON AN EMPTY STOMACH 06/23/2016 06/22/2016 Inactive levothyroxine 125 mc g tablet RxNorm: 222154 TAKE ONE TABLET BY MO [facility] DAILY ON AN EMPTY STOMACH 06/23/2016 08/04/2017 Inactive cetirizine 10 mg tablet RxNorm: 0871681 TAKE ONE TABLET BY MOUTH DAILY 06/16/2016 10/13/2016 In active furosemide 40 mg tablet RxNorm: 862484 Tablet(s) TAKE ONE TABLET BY MOUTH DAILY 06/05/2016 12/01/2016 In active cetirizine 10 mg tablet RxNorm: 8295961 1 Tablet(s) PO daily 05/01/2016 05/30/2016 Inactive Levaquin 250 mg tablet RxNorm: 214501 Tablet(s) PO 2 pills day one and 1 pill day 2-7 04/06/2016 07/21/2016 Inactive warfarin 5 mg tablet RxNorm: 254053 Tablet(s) 1/2 TABLETS BY MOUTH ON AND WEDNESDAY. TAKE ONLY 1 TABLET BY MOUTH ALL OTHER DAYS OF THE WEEK 03/18/2016 07/07/2016 In active triamcinolone aceton sreekanth 0.025 % topical cream RxNorm: 5124692 1 Application TOP BI D 03/10/2016 08/16/2017 In active potassium chloride E R 20 mEq tablet,extended release RxNorm: 618961 1 Tablet(s) PO daily 03/04/2016 06/01/2016 Inactive Levaquin 250 mg tablet RxNorm: 827508 Tablet(s) PO 2 pills day one and 1 pill day 2-7 03/04/2016 04/05/2016 Inactive Levaquin 250 mg tablet RxNorm: 991809 Tablet(s) PO 2 pills day one and 1 pill day 2-7 03/03/2016 03/03/2016 Inactive potassium chloride E R 20 mEq tablet,extended release RxNorm: 001256 1 Tablet(s) PO daily 03/03/2016 03/03/2016 Inactive Cipro 500 mg tablet RxNorm: 484498 1 Tablet(s) PO BID 02/20/2016 07/21/2016 Inactive Cipro 500 mg tablet RxNorm: 456866 1 Tablet(s) PO BID 02/20/2016 02/19/2016 Inactive furosemide 40 mg tablet RxNorm: 567662 TAKE ONE TABLET BY MOUTH DAILY 01/27/2016 01/26/2016 In active warfarin 5 mg tablet RxNorm: 920081 TAKE 1 AND 1/2 TABLETS BY MOUTH ON AND WEDNESDAY. TAKE ONLY 1 TABLET BY MOUTH ALL OTHER DAYS OF THE WEEK 01/27/2016 01/26/2016 In active furosemide 40 mg tablet RxNorm: 581564 TAKE ONE TABLET BY MOUTH DAILY 01/27/2016 06/04/2016 In active warfarin 5 mg tablet RxNorm: 112759 TAKE 1 AND 1/2 TABLETS BY MOUTH ON AND WEDNESDAY. TAKE ONLY 1 TABLET BY MOUTH ALL OTHER DAYS OF THE WEEK 01/27/2016 03/17/2016 In active potassium chloride E R 20 mEq tablet,extended release RxNorm: 401491 1 Tablet(s) PO daily 11/20/2015 03/02/2016 Inactive furosemide 40 mg tablet RxNorm: 921981 TAKE ONE TABLET BY MOUTH DAILY 11/12/2015 01/26/2016 In active Zovirax 5 % topical cream RxNorm: 205818 TOP QID 0 09/24/2015 09/23/2015 Inactive Zovirax 5 % topical cream RxNorm: 999358 TOP QID 0 09/24/2015 11/19/2015 Inactive nystatin 100,000 uni t/gram topical cream RxNorm: 894660 1 Application TOP TID 09/17/2015 10/12/2016 In active warfarin 5 mg tablet RxNorm: 827554 TAKE 1 AND 1/2 TABLETS BY MOUTH ON AND WEDNESDAY. TAKE ONLY 1 TABLET BY MOUTH ALL OTHER DAYS OF THE WEEK 08/19/2015 01/05/2016 In active loratadine 10 mg tablet RxNorm: 057467 1 Tablet(s) PO daily 07/30/2015 07/23/2016 Inactive loratadine 10 mg tablet RxNorm: 487215 1 Tablet(s) PO daily 07/30/2015 07/29/2015 Inactive furosemide 40 mg tablet RxNorm: 070498 TAKE ONE TABLET BY MOUTH DAILY 06/24/2015 11/11/2015 In active levothyroxine 125 mc g tablet RxNorm: 943193 1 Tablet(s) PO daily 05/31/2015 05/24/2016 Inactive furosemide 40 mg tablet RxNorm: 398543 1 Tablet(s) PO daily 04/05/2015 06/23/2015 Inactive warfarin 5 mg tablet RxNorm: 002652 TAKE 1 AND 1/2 TABLETS BY MOUTH ON AND WEDNESDAY. TAKE ONLY 1 TABLET BY MOUTH ALL OTHER DAYS OF THE WEEK 02/12/2015 07/29/2015 In active Flonase Allergy Reli ef 50 mcg/actuation nasal spray,suspension RxNorm: 2 Payne NASAL daily 02/05/2015 03/06/2015 Inactive Kenalog 40 mg/mL zohra pension for injection RxNorm: 1217592 Milliliter(s) Inj 02/05/2015 02/05/2015 In active warfarin 5 mg tablet RxNorm: 180921 Take 7.5mg (1 1/2 tablets) Wednesday and and 1 Tablet(s) PO (5mg) all other days 01/11/2015 02/09/2015 Inactive levothyroxine 125 mc g tablet RxNorm: 147413 1 Tablet(s) PO every other day 01/01/2015 05/30/2015 In active alternate with 150 levothyroxine 150 mc g tablet RxNorm: 705065 1 Tablet(s) PO every other day 01/01/2015 05/30/2015 In active alternate with 125 loratadine 10 mg tablet RxNorm: 094166 Tablet(s) PO as needed No Start Date Active Fish Oil 1,000 mg ca psule RxNorm: 1 Capsule(s) PO TID No Start Date Active magnesium 250 mg tablet RxNorm: 1 Tablet(s) PO daily No Start Date Active Vitamin D3 2,000 uni t tablet RxNorm: 819641 2 Tablet(s) PO daily No Start Date Active Fosamax 35 mg tablet RxNorm: 522804 1 Tablet(s) PO QW No Start Date Active levothyroxine 125 mc g tablet RxNorm: 528914 1 Tablet(s) PO daily No Start Date 12/31/2014 Inactive levothyroxine 150 mc g tablet RxNorm: 791845 1 Tablet(s) PO daily No Start Date 12/31/2014 Inactive diltiazem 60 mg tablet RxNorm: 962658 1 Tablet(s) PO QID No Start Date 03/23/2018 Inactive meclizine 25 mg tablet RxNorm: 874332 1 Tablet(s) PO TID as needed Dizziness No Start Date 07/18/2018 Inactive furosemide 40 mg tablet RxNorm: 506103 1 Tablet(s) PO daily No Start Date 04/04/2015 Inactive potassium chloride RxNorm: miscellaneous No Start Date 11/19/2015 Inactive Vitamin D2 oral RxNorm: 4018 oral No Start Date 05/31/2015 Inactive warfarin 5 mg tablet RxNorm: 695118 1 Tablet(s) PO daily No Start Date 01/10/2015 Inactive Coumadin 4 mg tablet RxNorm: 862433 1 Tablet(s) PO Wed/ No Start Date 07/28/2017 Inactive Medication Administered Medication Codes Instruc tions Start Date Status ceftriaxone 500 mg solution for injection RxNorm: 7083063 10/27/2018 Active ceftriaxone 500 mg solution for injection RxNorm: 8030018 07/22/2016 No longer A ctive Kenalog 40 mg/mL suspension for injection RxNorm: 1308138 Milliliter 07/22/2016 No longer Active Kenalog 40 mg/mL suspension for injection RxNorm: 0728973 Milliliter 02/05/2015 No longer Active Immunizations Vaccine [...] skin changes ICD-10: R23.8 ICD-9: 782.9 09/27/2018 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 ICD-10: Z79.01 ICD-9: [...] 244.9 11/20/2014 ACTINIC KERATOSIS ICD-9: 702.0 11/20/2014 [facility] current use of anticoagulant therapy ICD-9: V58.61 [...] Code Item Item Code Result Date Pt Vhm9295 PT 24.4 seconds 10/24/2018 Pt Ejf0331 INR 2.2 10/24/2018 Pt Orl1242 Low Intensity - 1.5-2.0 10/24/2018 Pt Eha0195 Mod intensity - 2.0-3.0 10/24/2018 Pt Soo5783 Hi intensity - 3.0-4.0 10/24/2018 Lipid Ord30 CHOL 143 mg/dL 10/24/2018 Lipid Ord30 HDL 52.0 mg/dl 10/24/2018 Lipid Ord30 TRIG 78 mg/dL 10/24/2018 Lipid Ord30 LDL 75 mg/dL 10/24/2018 Lipid Ord30 C/HDL 2.8 Ratio 10/24/2018 Comp Metabolic Wbi879 NA 142 mEq/L 10/24/2018 Comp Metabolic Vnd225 K 4.6 mEq/L 10/24/2018 Comp Metabolic Uqh640 CL 107 mEq/L 10/24/2018 Comp Metabolic Jex303 CO2 27.0 mEq/L 10/24/2018 Comp Metabolic Sao546 AN ION GAP 13 10/24/2018 Comp Metabolic Cry167 GL UCOSE 82 mg/dL 10/24/2018 Comp Metabolic Qjl952 Cr eat 1.1 mg/dL 10/24/2018 Comp Metabolic Oxa533 eG FR 54 ml/min/1.73m2 10/24 Comp Metabolic Ohf492 BUN 23 mg/dL 10/24/2018 Comp Metabolic Ozy473 B/ C Ratio 21.9 Ratio 10/24/2018 Comp Metabolic Dre918 CA LCIUM 9.0 mg/dL 10/24/2018 Comp Metabolic Vth103 AL K PHOS 64 U/L 10/24/2018 Comp Metabolic Kzx031 T(SGOT) 18 U/L 10/24/2018 Comp Metabolic Znz815 AL T(SGPT) 14 U/L 10/24/2018 Comp Metabolic Hwf845 BI LI T 0.5 mg/dL 10/24/2018 Comp Metabolic Snd785 AL BUMIN 3.0 g/dL 10/24/2018 Comp Metabolic Qlt171 TP RO 5.2 g/dL 10/24/2018 Comp Metabolic Aay775 GL OB 2.2 g/dL 10/24/2018 Comp Metabolic Qqe191 A/ G Ratio 1.4 Ratio 10/24/2018 Comp Metabolic Eda362 Os mo 286 mOsmo 10/24/2018 Pt Hmv6290 PT 23.8 seconds 09/29/2018 Pt Pmq6693 INR 2.2 09/29/2018 Pt Jpz7588 Low Intensity - 1.5-2.0 09/29/2018 Pt Xej1809 Mod intensity - 2.0-3.0 09/29/2018 Pt Eqx6128 Hi intensity - 3.0-4.0 09/29/2018 Pt Axg9288 PT 19.6 seconds 09/19/2018 Pt Vlb6041 INR 1.7 09/19/2018 Pt Umh5511 Low Intensity - 1.5-2.0 09/19/2018 Pt Omo1940 Mod intensity - 2.0-3.0 09/19/2018 Pt Yxf4295 Hi intensity - 3.0-4.0 09/19/2018 Pt Hbn3018 PT 16.8 seconds 09/12/2018 Pt Vba1672 INR 1.4 09/12/2018 Pt Xgt8566 Low Intensity - 1.5-2.0 09/12/2018 Pt Wmq9949 Mod intensity - 2.0-3.0 09/12/2018 Pt Yaj9092 Hi intensity - 3.0-4.0 09/12/2018 Pt Hgg5773 PT 13.1 seconds 09/07/2018 Pt Zad4407 INR 1.0 09/07/2018 Pt Wtz5772 Low Intensity - 1.5-2.0 09/07/2018 Pt Ybk1763 Mod intensity - 2.0-3.0 09/07/2018 Pt Mvo9758 Hi intensity - 3.0-4.0 09/07/2018 Pt Gxz2421 PT 24.1 seconds 08/23/2018 Pt Ydh5193 INR 2.2 08/23/2018 Pt Dsj4563 Low Intensity - 1.5-2.0 08/23/2018 Pt Fqy5762 Mod intensity - 2.0-3.0 08/23/2018 Pt Bjv6355 Hi intensity - 3.0-4.0 08/23/2018 Pt Xap6485 PT 30.9 seconds 08/16/2018 Pt Dco0292 INR 3.0 08/16/2018 Pt Bth5917 Low Intensity - 1.5-2.0 08/16/2018 Pt Otd1769 Mod intensity - 2.0-3.0 08/16/2018 Pt Lsl7059 Hi intensity - 3.0-4.0 08/16/2018 Pt Pen0514 PT 29.5 seconds 08/01/2018 Pt Jtj6836 INR 2.8 08/01/2018 Pt Ipd0089 Low Intensity - 1.5-2.0 08/01/2018 Pt Osa4603 Mod intensity - 2.0-3.0 08/01/2018 Pt Ipm1730 Hi intensity - 3.0-4.0 08/01/2018 Pt Vlu6054 PT 24.2 seconds 07/25/2018 Pt Kmg4931 INR 2.2 07/25/2018 Pt Pus4047 Low Intensity - 1.5-2.0 07/25/2018 Pt Dvh3394 Mod intensity - 2.0-3.0 07/25/2018 Pt Soj3963 Hi intensity - 3.0-4.0 07/25/2018 Pt Chc0840 PT 38.6 seconds 07/19/2018 Pt Gsr9086 INR 4.0 07/19/2018 Pt Mzt7300 Low Intensity - 1.5-2.0 07/19/2018 Pt Dhx3807 Mod intensity - 2.0-3.0 07/19/2018 Pt Ojb0287 Hi intensity - 3.0-4.0 07/19/2018 Pt Yaf2940 PT 25.7 seconds 07/11/2018 Pt Kpy2690 INR 2.4 07/11/2018 Pt Wbl7434 Low Intensity - 1.5-2.0 07/11/2018 Pt Mud9018 Mod intensity - 2.0-3.0 07/11/2018 Pt Uan1865 Hi intensity - 3.0-4.0 07/11/2018 Pt Kby7590 PT 18.5 seconds 07/08/2018 Pt Odw4895 INR 1.6 07/08/2018 Pt Fmj7924 Low Intensity - 1.5-2.0 07/08/2018 Pt Deg1254 Mod intensity - 2.0-3.0 07/08/2018 Pt Rrh0382 Hi intensity - 3.0-4.0 07/08/2018 Pt Zlu3774 PT 27.3 seconds 06/29/2018 Pt Sku7301 INR 2.6 06/29/2018 Pt Scd1454 Low Intensity - 1.5-2.0 06/29/2018 Pt Uvv4269 Mod intensity - 2.0-3.0 06/29/2018 Pt Asz8469 Hi intensity - 3.0-4.0 06/29/2018 Pt Xtp3933 PT 24.0 seconds 05/26/2018 Pt Gka8200 INR 2.2 05/26/2018 Pt Ali6237 Low Intensity - 1.5-2.0 05/26/2018 Pt Svd3955 Mod intensity - 2.0-3.0 05/26/2018 Pt Hmu5514 Hi intensity - 3.0-4.0 05/26/2018 Tsh Ord6 [...] 29.6 pg 03/25/2018 Cbc With Differential Ord2 [place]% 9.5 % 03/25/2018 Cbc With Differential Ord2 [...] 2.19 K/ul 03/25/2018 Cbc With Differential Ord2 [place] ABS# 0.8 K/ul 03/25/2018 Cbc With Differential Ord2 Eos ABS# 0.3 K/ul 03/25/2018 Cbc With Differential Ord2 Baso ABS# 0.0 K/ul 03/25/2018 Lipid Ord30 CHOL 156 mg/dL 03/25/2018 Lipid Ord30 HDL 52.0 mg/dl 03/25/2018 Lipid Ord30 TRIG 98 mg/dL 03/25/2018 Lipid Ord30 LDL 84 mg/dL 03/25/2018 Lipid Ord30 C/HDL 3.0 Ratio 03/25/2018 Free T4 Kus471 FREE T4 1.73 ng/dL 03/25/2018 Comp Metabolic Sux097 NA 143 mEq/L 03/25/2018 Comp Metabolic Qqa112 K 4.6 mEq/L 03/25/2018 Comp Metabolic Vcl735 CL 108 mEq/L 03/25/2018 Comp Metabolic Wfu974 CO2 26.0 mEq/L 03/25/2018 Comp Metabolic Nck453 AN ION GAP 14 03/25/2018 Comp Metabolic Xvd415 GL UCOSE 87 mg/dL 03/25/2018 Comp Metabolic Msy226 Cr eat 1.2 mg/dL 03/25/2018 Comp Metabolic Frn535 eG FR 48 ml/min/1.73m2 03/25 Comp Metabolic Ptk801 BUN 18 mg/dL 03/25/2018 Comp Metabolic Swv486 B/ C Ratio 15.5 Ratio 03/25/2018 Comp Metabolic Vwo645 CA LCIUM 9.1 mg/dL 03/25/2018 Comp Metabolic Brh064 AL K PHOS 58 U/L 03/25/2018 Comp Metabolic Doa532 T(SGOT) 21 U/L 03/25/2018 Comp Metabolic Bps165 AL T(SGPT) 13 U/L 03/25/2018 Comp Metabolic Ogs217 BI LI T 0.7 mg/dL 03/25/2018 Comp Metabolic Ecp041 AL BUMIN 3.2 g/dL 03/25/2018 Comp Metabolic Onb363 TP RO 5.5 g/dL 03/25/2018 Comp Metabolic Ror570 GL OB 2.3 g/dL 03/25/2018 Comp Metabolic Thi838 A/ G Ratio 1.4 Ratio 03/25/2018 Comp Metabolic Kjy314 Os mo 286 mOsmo 03/25/2018 Pt Eql7698 PT 29.0 seconds 03/22/2018 Pt Yfj9761 INR 2.7 03/22/2018 Pt Fdf0998 Low Intensity - 1.5-2.0 03/22/2018 Pt Zlr8995 Mod intensity - 2.0-3.0 03/22/2018 Pt Rum1920 Hi intensity - 3.0-4.0 03/22/2018 Pt Has9305 PT 27.1 seconds 02/25/2018 Pt Try9423 INR 2.5 02/25/2018 Pt Kmy7004 Low Intensity - 1.5-2.0 02/25/2018 Pt Qcs4772 Mod intensity - 2.0-3.0 02/25/2018 Pt Ozz6532 Hi intensity - 3.0-4.0 02/25/2018 Pt Zka3931 PT 26.1 seconds 01/26/2018 Pt Phh6819 INR 2.4 01/26/2018 Pt Xcu6032 Low Intensity - 1.5-2.0 01/26/2018 Pt Nlx0733 Mod intensity - 2.0-3.0 01/26/2018 Pt Oxb9955 Hi intensity - 3.0-4.0 01/26/2018 Pt Awz9257 PT 22.8 seconds 12/24/2017 Pt Ydz0523 INR 2.0 12/24/2017 Pt Wex7749 Low Intensity - 1.5-2.0 12/24/2017 Pt Rja1418 Mod intensity - 2.0-3.0 12/24/2017 Pt Yhl7817 Hi intensity - 3.0-4.0 12/24/2017 Pt Wnp7557 PT 29.4 seconds 11/18/2017 Pt Ven0416 INR 2.8 11/18/2017 Pt Hgj3419 Low Intensity - 1.5-2.0 11/18/2017 Pt Jsc3657 Mod intensity - 2.0-3.0 11/18/2017 Pt Jku2706 Hi intensity - 3.0-4.0 11/18/2017 Pt Zxz0019 PT 26.6 seconds 09/13/2017 Pt Tsi1845 INR 2.4 09/13/2017 Pt Mzn2207 Low Intensity - 1.5-2.0 09/13/2017 Pt Gwp7327 Mod intensity - 2.0-3.0 09/13/2017 Pt Qjv7351 Hi intensity - 3.0-4.0 09/13/2017 Pt Wka6824 PT 28.2 seconds 08/10/2017 Pt Mpm7958 INR 2.6 08/10/2017 Pt Hhc2413 Low Intensity - 1.5-2.0 08/10/2017 Pt Pjn1562 Mod intensity - 2.0-3.0 08/10/2017 Pt Iux0668 Hi intensity - 3.0-4.0 08/10/2017 Pt Qxn9737 PT 33.9 seconds 07/27/2017 Pt Adq1107 INR 3.3 07/27/2017 Pt Mpd3877 Low Intensity - 1.5-2.0 07/27/2017 Pt Uks4923 Mod intensity - 2.0-3.0 07/27/2017 Pt Bzz1603 Hi intensity - 3.0-4.0 07/27/2017 Pt Njf5578 PT 29.1 seconds 06/29/2017 Pt Kta1015 INR 2.7 06/29/2017 Pt Mcz6207 Low Intensity - 1.5-2.0 06/29/2017 Pt Idn8496 Mod intensity - 2.0-3.0 06/29/2017 Pt Jga6491 Hi intensity - 3.0-4.0 06/29/2017 Pt Zfm1248 PT 30.3 seconds 06/11/2017 Pt Iad0866 INR 2.9 06/11/2017 Pt Avi0162 Low Intensity - 1.5-2.0 06/11/2017 Pt Kwg5449 Mod intensity - 2.0-3.0 06/11/2017 Pt Zwb6378 Hi intensity - 3.0-4.0 06/11/2017 Pt Bae3339 PT 39.1 seconds 06/07/2017 Pt Aci0911 INR 3.9 06/07/2017 Pt Qmg7513 Low Intensity - 1.5-2.0 06/07/2017 Pt Pdy4462 Mod intensity - 2.0-3.0 06/07/2017 Pt Acg0117 Hi intensity - 3.0-4.0 06/07/2017 Pt Epz8084 PT 34.2 seconds 05/26/2017 Pt Peq9270 INR 3.3 05/26/2017 Pt Dxi6873 Low Intensity - 1.5-2.0 05/26/2017 Pt Xzi8506 Mod intensity - 2.0-3.0 05/26/2017 Pt Tqo9860 Hi intensity - 3.0-4.0 05/26/2017 Comp Metabolic Oeq023 NA 138 mEq/L 04/23/2017 Comp Metabolic Ulr751 K 4.2 mEq/L 04/23/2017 Comp Metabolic Tqi106 CL 101 mEq/L 04/23/2017 Comp Metabolic Fbj695 CO2 28.0 mEq/L 04/23/2017 Comp Metabolic Fvh751 AN ION GAP 13 04/23/2017 Comp Metabolic Ffh284 GL UCOSE 89 mg/dL 04/23/2017 Comp Metabolic Uil030 Cr eat 1.1 mg/dL 04/23/2017 Comp Metabolic Mkd339 eG FR 51 ml/min/1.73m2 04/23 Comp Metabolic Gpc967 BUN 26 mg/dL 04/23/2017 Comp Metabolic Xbx237 B/ C Ratio 23.9 Ratio 04/23/2017 Comp Metabolic Ifb904 CA LCIUM 9.4 mg/dL 04/23/2017 Comp Metabolic Vfz309 AL K PHOS 95 U/L 04/23/2017 Comp Metabolic Fqr547 T(SGOT) 18 U/L 04/23/2017 Comp Metabolic Ofw880 AL T(SGPT) 17 U/L 04/23/2017 Comp Metabolic Amy232 BI LI T 0.7 mg/dL 04/23/2017 Comp Metabolic Rll792 AL BUMIN 3.2 g/dL 04/23/2017 Comp Metabolic Kda540 TP RO 5.6 g/dL 04/23/2017 Comp Metabolic Seb516 GL OB 2.4 g/dL 04/23/2017 Comp Metabolic Xmn074 A/ G Ratio 1.3 Ratio 04/23/2017 Comp Metabolic Kcw883 Os mo 280 mOsmo 04/23/2017 Pt Lof1267 PT 28.6 seconds 04/23/2017 Pt Xqu7140 INR 2.7 04/23/2017 Pt Afs6656 Low Intensity - 1.5-2.0 04/23/2017 Pt Lda7874 Mod intensity - 2.0-3.0 04/23/2017 Pt Mnt7417 Hi intensity - 3.0-4.0 04/23/2017 Pt Vfd3872 PT 24.4 seconds 03/16/2017 Pt Whc1749 INR 2.2 03/16/2017 Pt Jgp2420 Low Intensity - 1.5-2.0 03/16/2017 Pt Xhk5481 Mod intensity - 2.0-3.0 03/16/2017 Pt Vcm1747 Hi intensity - 3.0-4.0 03/16/2017 Pt Hiw2024 PT 28.2 seconds 02/24/2017 Pt Iah1318 INR 2.6 02/24/2017 Pt Tnm1102 Low Intensity - 1.5-2.0 02/24/2017 Pt Jlw5084 Mod intensity - 2.0-3.0 02/24/2017 Pt Dio2616 Hi intensity - 3.0-4.0 02/24/2017 Pt Kru9744 PT 26.8 seconds 02/08/2017 Pt Zud9168 INR 2.5 02/08/2017 Pt Yix0738 Low Intensity - 1.5-2.0 02/08/2017 Pt Cha3646 Mod intensity - 2.0-3.0 02/08/2017 Pt Rfb7616 Hi intensity - 3.0-4.0 02/08/2017 Lipid Ord30 CHOL 150 mg/dL 01/25/2017 Lipid Ord30 HDL 55.0 mg/dl 01/25/2017 Lipid Ord30 TRIG 66 mg/dL 01/25/2017 Lipid Ord30 LDL 82 mg/dL 01/25/2017 Lipid Ord30 C/HDL 2.7 Ratio 01/25/2017 Pt Kto2453 PT 29.9 seconds 01/25/2017 Pt Ttz4122 INR 2.8 01/25/2017 Pt Dft5571 Low Intensity - 1.5-2.0 01/25/2017 Pt Ili6723 Mod intensity - 2.0-3.0 01/25/2017 Pt Xjk9115 Hi intensity - 3.0-4.0 01/25/2017 Comp Metabolic Kgr839 NA 143 mEq/L 01/25/2017 Comp Metabolic Tta175 K 3.9 mEq/L 01/25/2017 Comp Metabolic Lck127 CL 108 mEq/L 01/25/2017 Comp Metabolic Cfe394 CO2 23.0 mEq/L 01/25/2017 Comp Metabolic Vsc132 AN ION GAP 16 01/25/2017 Comp Metabolic Uuw107 GL UCOSE 80 mg/dL 01/25/2017 Comp Metabolic Epn982 Cr eat 1.0 mg/dL 01/25/2017 Comp Metabolic Kjv752 eG FR 57 ml/min/1.73m2 01/25 Comp Metabolic Sqe208 BUN 25 mg/dL 01/25/2017 Comp Metabolic Bmi666 B/ C Ratio 25.0 Ratio 01/25/2017 Comp Metabolic Pbk756 CA LCIUM 8.5 mg/dL 01/25/2017 Comp Metabolic Hlt454 AL K PHOS 81 U/L 01/25/2017 Comp Metabolic Kii750 T(SGOT) 19 U/L 01/25/2017 Comp Metabolic Zqp588 AL T(SGPT) 23 U/L 01/25/2017 Comp Metabolic Esb249 BI LI T 0.5 mg/dL 01/25/2017 Comp Metabolic Mag412 AL BUMIN 2.9 g/dL 01/25/2017 Comp Metabolic Axb793 TP RO 5.1 g/dL 01/25/2017 Comp Metabolic Owv180 GL OB 2.2 g/dL 01/25/2017 Comp Metabolic Ipo743 A/ G Ratio 1.3 Ratio 01/25/2017 Comp Metabolic Gvq283 Os mo 288 mOsmo 01/25/2017 Cbc With [...] 30.7 pg 01/25/2017 Cbc With Differential Ord2 [place]% 8.2 % 01/25/2017 Cbc With Differential Ord2 [...] 3.10 K/ul 01/25/2017 Cbc With Differential Ord2 [place] ABS# 0.8 K/ul 01/25/2017 Cbc With Differential Ord2 Eos ABS# 0.4 K/ul 01/25/2017 Cbc With Differential Ord2 Baso ABS# 0.1 K/ul 01/25/2017 Free T4 Cox056 FREE T4 2.09 ng/dL 01/25/2017 Tsh Ord6 hTSH II 0.46 uIU/mL 01/25/2017 Pt Nfz2490 PT 26.1 seconds 11/26/2016 Pt Dtq9032 INR 2.6 11/26/2016 Pt Bak6457 Low Intensity - 1.5-2.0 11/26/2016 Pt Rnp3166 Mod intensity - 2.0-3.0 11/26/2016 Pt Kmr3714 Hi intensity - 3.0-4.0 11/26/2016 Pt Gxe6049 PT 26.2 seconds 10/29/2016 Pt Uyr1426 INR 2.6 10/29/2016 Pt Pfv1975 Low Intensity - 1.5-2.0 10/29/2016 Pt Lzb7806 Mod intensity - 2.0-3.0 10/29/2016 Pt Uat6804 Hi intensity - 3.0-4.0 10/29/2016 Pt Taq3259 PT 20.8 seconds 10/13/2016 Pt Jqv1655 INR 1.9 10/13/2016 Pt Bni1590 Low Intensity - 1.5-2.0 10/13/2016 Pt Ekh4889 Mod intensity - 2.0-3.0 10/13/2016 Pt Rlh2595 Hi intensity - 3.0-4.0 10/13/2016 Pt Phh9474 PT 26.5 seconds 10/01/2016 Pt Ogl7819 INR 2.6 10/01/2016 Pt Vpp0564 Low Intensity - 1.5-2.0 10/01/2016 Pt Flo4959 Mod intensity - 2.0-3.0 10/01/2016 Pt Bvz7648 Hi intensity - 3.0-4.0 10/01/2016 Pt Iga8826 PT 24.6 seconds 09/14/2016 Pt Bpt8878 INR 2.4 09/14/2016 Pt Lvx8372 Low Intensity - 1.5-2.0 09/14/2016 Pt Vjf8302 Mod intensity - 2.0-3.0 09/14/2016 Pt Zhx0569 Hi intensity - 3.0-4.0 09/14/2016 Pt Lbz3869 PT 18.0 seconds 09/07/2016 Pt Wpp9078 INR 1.6 09/07/2016 Pt Eha2337 Low Intensity - 1.5-2.0 09/07/2016 Pt Cfu2984 Mod intensity - 2.0-3.0 09/07/2016 Pt Crl6947 Hi intensity - 3.0-4.0 09/07/2016 Pt Jdn4536 PT 23.7 seconds 08/12/2016 Pt Bmn8916 INR 2.2 08/12/2016 Pt Ael2193 Low Intensity - 1.5-2.0 08/12/2016 Pt Ggf8801 Mod intensity - 2.0-3.0 08/12/2016 Pt Etf9859 Hi intensity - 3.0-4.0 08/12/2016 Pt Yfq8059 PT 21.6 seconds 07/27/2016 Pt Izc2633 INR 2.0 07/27/2016 Pt Noc5891 Low Intensity - 1.5-2.0 07/27/2016 Pt Bcc0693 Mod intensity - 2.0-3.0 07/27/2016 Pt Ckx7342 Hi intensity - 3.0-4.0 07/27/2016 Pt Bbc7905 PT 26.0 seconds 06/15/2016 Pt Rdb2215 INR 2.5 06/15/2016 Pt Vww2627 Low Intensity - 1.5-2.0 06/15/2016 Pt Ura8652 Mod intensity - 2.0-3.0 06/15/2016 Pt Ato7830 Hi intensity - 3.0-4.0 06/15/2016 Pt Njj7037 PT 18.8 seconds 06/01/2016 Pt Wnp1818 INR 1.7 06/01/2016 Pt Uwe6083 Low Intensity - 1.5-2.0 06/01/2016 Pt Flc8962 Mod intensity - 2.0-3.0 06/01/2016 Pt Qcu6876 Hi intensity - 3.0-4.0 06/01/2016 Pt Frx2702 PT 20.8 seconds 05/12/2016 Pt Qnm4469 INR 1.9 05/12/2016 Pt Vop6701 Low Intensity - 1.5-2.0 05/12/2016 Pt Ehv0030 Mod intensity - 2.0-3.0 05/12/2016 Pt Mxl0740 Hi intensity - 3.0-4.0 05/12/2016 Pt Cib9652 PT 24.5 seconds 04/10/2016 Pt Pmb6795 INR 2.4 04/10/2016 Pt Dck8828 Low Intensity - 1.5-2.0 04/10/2016 Pt Tqk3742 Mod intensity - 2.0-3.0 04/10/2016 Pt Adh3673 Hi intensity - 3.0-4.0 04/10/2016 Pt Skx5315 PT 26.4 seconds 03/10/2016 Pt Yvs1701 INR 2.6 03/10/2016 Pt Dqw5812 Low Intensity - 1.5-2.0 03/10/2016 Pt Zft5346 Mod intensity - 2.0-3.0 03/10/2016 Pt Vjo1158 Hi intensity - 3.0-4.0 03/10/2016 Pt Nkc7514 PT 24.9 seconds 03/06/2016 Pt Yob1562 INR 2.4 03/06/2016 Pt Otx9890 Low Intensity - 1.5-2.0 03/06/2016 Pt Dae1173 Mod intensity - 2.0-3.0 03/06/2016 Pt Bzf7720 Hi intensity - 3.0-4.0 03/06/2016 Pt Kxe6973 PT 21.9 seconds 02/25/2016 Pt Nmo0668 INR 2.0 02/25/2016 Pt Vvb1747 Low Intensity - 1.5-2.0 02/25/2016 Pt Mtw7630 Mod intensity - 2.0-3.0 02/25/2016 Pt Pkw5355 Hi intensity - 3.0-4.0 02/25/2016 Pt Sbx0955 PT 21.8 seconds 02/21/2016 Pt Knr5024 INR 2.0 02/21/2016 Pt Nml1416 Low Intensity - 1.5-2.0 02/21/2016 Pt Wsi8983 Mod intensity - 2.0-3.0 02/21/2016 Pt Cjr0026 Hi intensity - 3.0-4.0 02/21/2016 Culture Urine [id number] URI NE CULTURE SEE NOTES 02/20/2016 Culture Urine [id number] Con tinued Results 02/20/2016 Urine Culture Ucult [...] 29.2 pg 02/14/2016 Cbc With Differential Ord2 [place]% 9.3 % 02/14/2016 Cbc With Differential Ord2 [...] 2.55 K/ul 02/14/2016 Cbc With Differential Ord2 [place] ABS# 0.8 K/ul 02/14/2016 Cbc With Differential Ord2 Eos ABS# 0.4 K/ul 02/14/2016 Cbc With Differential Ord2 Baso ABS# 0.1 K/ul 02/14/2016 Tsh Ord6 hTSH II 0.80 uIU/mL 02/14/2016 Pt Wym2894 PT 27.1 seconds 02/14/2016 Pt Rdk6254 INR 2.7 02/14/2016 Pt Pnw3320 Low Intensity - 1.5-2.0 02/14/2016 Pt Tta1717 Mod intensity - 2.0-3.0 02/14/2016 Pt Otr8306 Hi intensity - 3.0-4.0 02/14/2016 Free T4 Ydm370 FREE T4 1.87 ng/dL 02/14/2016 Comp Metabolic Pkz220 NA 139 mEq/L 02/14/2016 Comp Metabolic Zly412 K 3.8 mEq/L 02/14/2016 Comp Metabolic Mox836 CL 103 mEq/L 02/14/2016 Comp Metabolic Osn640 CO2 27.0 mEq/L 02/14/2016 Comp Metabolic Yxr000 AN ION GAP 13 02/14/2016 Comp Metabolic Vjy621 GL UCOSE 91 mg/dL 02/14/2016 Comp Metabolic Pku466 Cr eat 1.0 mg/dL 02/14/2016 Comp Metabolic Tbj728 eG FR 58 ml/min/1.73m2 02/13 Comp Metabolic Ncp744 BUN 16 mg/dL 02/14/2016 Comp Metabolic Wcj248 B/ C Ratio 16.2 Ratio 02/14/2016 Comp Metabolic Ltx137 CA LCIUM 9.0 mg/dL 02/14/2016 Comp Metabolic Cud547 AL K PHOS 88 U/L 02/14/2016 Comp Metabolic Gvf597 T(SGOT) 17 U/L 02/14/2016 Comp Metabolic Rnm820 AL T(SGPT) 12 U/L 02/14/2016 Comp Metabolic Kru435 BI LI T 0.6 mg/dL 02/14/2016 Comp Metabolic Mok496 AL BUMIN 3.2 g/dL 02/14/2016 Comp Metabolic Nhg815 TP RO 5.8 g/dL 02/14/2016 Comp Metabolic Iar435 GL OB 2.6 g/dL 02/14/2016 Comp Metabolic Znk506 A/ G Ratio 1.3 Ratio 02/14/2016 Comp Metabolic Fkd468 Os mo 278 mOsmo 02/14/2016 Pt Jgw2809 PT 34.6 seconds 02/06/2016 Pt Pbh1410 INR 3.7 02/06/2016 Pt Vvu3808 Low Intensity - 1.5-2.0 02/06/2016 Pt Bef5469 Mod intensity - 2.0-3.0 02/06/2016 Pt Kxp2543 Hi intensity - 3.0-4.0 02/06/2016 Pt Loe8546 PT 33.3 seconds 01/23/2016 Pt Cth8927 INR 3.5 01/23/2016 Pt Evc0082 Low Intensity - 1.5-2.0 01/23/2016 Pt Eet9000 Mod intensity - 2.0-3.0 01/23/2016 Pt Iyt6697 Hi intensity - 3.0-4.0 01/23/2016 Pt Lpk9880 PT 30.5 seconds 12/31/2015 Pt Nub3922 INR 3.2 12/31/2015 Pt Pgm1581 Low Intensity - 1.5-2.0 12/31/2015 Pt Apm9087 Mod intensity - 2.0-3.0 12/31/2015 Pt Kzz7680 Hi intensity - 3.0-4.0 12/31/2015 Pt Hkv4186 PT 35.6 seconds 12/25/2015 Pt Xsy4904 INR 3.9 12/25/2015 Pt Frt7326 Low Intensity - 1.5-2.0 12/25/2015 Pt Ehw0524 Mod intensity - 2.0-3.0 12/25/2015 Pt Vdz2972 Hi intensity - 3.0-4.0 12/25/2015 Pt Wzx7207 PT 30.8 seconds 11/21/2015 Pt Ebs7535 INR 3.2 11/21/2015 Pt Lho7112 Low Intensity - 1.5-2.0 11/21/2015 Pt Tct6338 Mod intensity - 2.0-3.0 11/21/2015 Pt Fdv8204 Hi intensity - 3.0-4.0 11/21/2015 Uric Acid [...] 30.0 pg 11/20/2015 Cbc With Differential Ord2 [place]% 8.1 % 11/20/2015 Cbc With Differential Ord2 [...] 2.51 K/ul 11/20/2015 Cbc With Differential Ord2 [place] ABS# 0.9 K/ul 11/20/2015 Cbc With Differential Ord2 Eos ABS# 0.3 K/ul 11/20/2015 Cbc With Differential Ord2 Baso ABS# 0.0 K/ul 11/20/2015 Comp Metabolic Ylj254 NA 137 mEq/L 10/22/2015 Comp Metabolic Paw562 K 3.9 mEq/L 10/22/2015 Comp Metabolic Tsl700 CL 100 mEq/L 10/22/2015 Comp Metabolic Ffu351 CO2 31.0 mEq/L 10/22/2015 Comp Metabolic Fdi110 AN ION GAP 10 10/22/2015 Comp Metabolic Ycb383 GL UCOSE 94 mg/dL 10/22/2015 Comp Metabolic Khk333 Cr eat 1.0 mg/dL 10/22/2015 Comp Metabolic Xga980 eG FR 55 ml/min/1.73m2 10/21 Comp Metabolic Hux651 BUN 19 mg/dL 10/22/2015 Comp Metabolic Ciy255 B/ C Ratio 18.3 Ratio 10/22/2015 Comp Metabolic Obt517 CA LCIUM 8.8 mg/dL 10/22/2015 Comp Metabolic Pev777 AL K PHOS 83 U/L 10/22/2015 Comp Metabolic Iqh408 T(SGOT) 15 U/L 10/22/2015 Comp Metabolic Ucu263 AL T(SGPT) 13 U/L 10/22/2015 Comp Metabolic Wzz719 BI LI T 0.9 mg/dL 10/22/2015 Comp Metabolic Uwt616 AL BUMIN 2.8 g/dL 10/22/2015 Comp Metabolic Zjw764 TP RO 5.4 g/dL 10/22/2015 Comp Metabolic Hfk078 GL OB 2.6 g/dL 10/22/2015 Comp Metabolic Rvc690 A/ G Ratio 1.1 Ratio 10/22/2015 Comp Metabolic Shu420 Os mo 276 mOsmo 10/22/2015 Bili D Ord93 BILI D 0.1 mg/dL 10/22/2015 Bili D Ord93 BILI I 0.8 mg/dL 10/22/2015 Pt Nqk6813 PT 22.8 seconds 10/22/2015 Pt Iuq8541 INR 2.1 10/22/2015 Pt Uca3881 Low Intensity - 1.5-2.0 10/22/2015 Pt Zex1007 Mod intensity - 2.0-3.0 10/22/2015 Pt Wny9605 Hi intensity - 3.0-4.0 10/22/2015 Pt Lvw6460 PT 28.0 seconds 09/16/2015 Pt Isl9716 INR 2.7 09/16/2015 Pt Ymb4261 Low Intensity - 1.5-2.0 09/16/2015 Pt Cbj1538 Mod intensity - 2.0-3.0 09/16/2015 Pt Anm2805 Hi intensity - 3.0-4.0 09/16/2015 Tsh Ord6 hTSH II 1.40 uIU/mL 09/16/2015 Free T4 Paw659 FREE T4 1.73 ng/dL 09/16/2015 Lipid Ord30 CHOL 169 mg/dL 09/16/2015 Lipid Ord30 HDL 66.0 mg/dl 09/16/2015 Lipid Ord30 TRIG 78 mg/dL 09/16/2015 Lipid Ord30 LDL 87 mg/dL 09/16/2015 Lipid Ord30 C/HDL 2.6 Ratio 09/16/2015 Pt Muv3820 PT 26.6 seconds 08/21/2015 Pt Bsh1396 INR 2.6 08/21/2015 Pt Yrl5588 Low Intensity - 1.5-2.0 08/21/2015 Pt Xcb7315 Mod intensity - 2.0-3.0 08/21/2015 Pt Pog3025 Hi intensity - 3.0-4.0 08/21/2015 Comp Metabolic Vsl870 NA 141 mEq/L 08/08/2015 Comp Metabolic Qab206 K 3.3 mEq/L 08/08/2015 Comp Metabolic Pgj368 CL 102 mEq/L 08/08/2015 Comp Metabolic Hxv312 CO2 31.0 mEq/L 08/08/2015 Comp Metabolic Gmm556 AN ION GAP 11 08/08/2015 Comp Metabolic Tci838 GL UCOSE 83 mg/dL 08/08/2015 Comp Metabolic Nve434 Cr eat 1.0 mg/dL 08/08/2015 Comp Metabolic Vzz906 eG FR 55 ml/min/1.73m2 08/08 Comp Metabolic Pug698 BUN 19 mg/dL 08/08/2015 Comp Metabolic Yuc990 B/ C Ratio 18.3 Ratio 08/08/2015 Comp Metabolic Jub816 CA LCIUM 8.9 mg/dL 08/08/2015 Comp Metabolic Lfe095 AL K PHOS 84 U/L 08/08/2015 Comp Metabolic Ntw205 T(SGOT) 20 U/L 08/08/2015 Comp Metabolic Uvo517 AL T(SGPT) 18 U/L 08/08/2015 Comp Metabolic Pcf031 BI LI T 0.6 mg/dL 08/08/2015 Comp Metabolic Auo628 AL BUMIN 3.3 g/dL 08/08/2015 Comp Metabolic Maz017 TP RO 5.9 g/dL 08/08/2015 Comp Metabolic Bmc968 GL OB 2.6 g/dL 08/08/2015 Comp Metabolic Okr762 A/ G Ratio 1.3 Ratio 08/08/2015 Comp Metabolic Haq637 Os mo 283 mOsmo 08/08/2015 Cbc With [...] 30.0 pg 08/08/2015 Cbc With Differential Ord2 [place]% 8.2 % 08/08/2015 Cbc With Differential Ord2 [...] 2.90 K/ul 08/08/2015 Cbc With Differential Ord2 [place] ABS# 0.9 K/ul 08/08/2015 Cbc With Differential [...] Ord93 BILI I 0.5 mg/dL 08/08/2015 Pt Poi5082 PT 31.8 seconds 08/05/2015 Pt Jat1420 INR 3.2 08/05/2015 Pt Tyh9688 Low Intensity - 1.5-2.0 08/05/2015 Pt Zdj7303 Mod intensity - 2.0-3.0 08/05/2015 Pt Ooe1134 Hi intensity - 3.0-4.0 08/05/2015 Pt Lke5737 PT 27.4 seconds 06/27/2015 Pt Qou8870 INR 2.6 06/27/2015 Pt Gnw3643 Low Intensity - 1.5-2.0 06/27/2015 Pt Oev0095 Mod intensity - 2.0-3.0 06/27/2015 Pt Fnu3252 Hi intensity - 3.0-4.0 06/27/2015 Tsh Ord6 [...] Ord2 RDW 15.1 % 05/31/2015 Free T4 Xld329 FREE T4 1.89 ng/dL 05/31/2015 Comp Metabolic Zgo027 NA 140 mEq/L 05/31/2015 Comp Metabolic Kwi571 K 3.3 mEq/L 05/31/2015 Comp Metabolic Lag806 CL 99 mEq/L 05/31/2015 Comp Metabolic Nxe102 CO2 30.0 mEq/L 05/31/2015 Comp Metabolic Uji288 AN ION GAP 14 05/31/2015 Comp Metabolic Hge922 GL UCOSE 70 mg/dL 05/31/2015 Comp Metabolic Zzo161 Cr eat 1.0 mg/dL 05/31/2015 Comp Metabolic Eoj720 eG FR 55 ml/min/1.73m2 05/31 Comp Metabolic Mpr152 BUN 23 mg/dL 05/31/2015 Comp Metabolic Lbj006 B/ C Ratio 22.1 Ratio 05/31/2015 Comp Metabolic Tkl744 CA LCIUM 8.9 mg/dL 05/31/2015 Comp Metabolic Shf867 AL K PHOS 86 U/L 05/31/2015 Comp Metabolic Cnz560 T(SGOT) 28 U/L 05/31/2015 Comp Metabolic Syi719 AL T(SGPT) 30 U/L 05/31/2015 Comp Metabolic Bls915 BI LI T 0.4 mg/dL 05/31/2015 Comp Metabolic Wba236 AL BUMIN 3.3 g/dL 05/31/2015 Comp Metabolic Nox888 TP RO 6.0 g/dL 05/31/2015 Comp Metabolic Kfx649 GL OB 2.7 g/dL 05/31/2015 Comp Metabolic Hnf658 A/ G Ratio 1.2 Ratio 05/31/2015 Comp Metabolic Hlr304 Os mo 282 mOsmo 05/31/2015 Pt Woz5741 PT 23.3 seconds 04/15/2015 Pt Ujm2531 INR 2.2 04/15/2015 Pt Cxv9434 Low Intensity - 1.5-2.0 04/15/2015 Pt Aks6552 Mod intensity - 2.0-3.0 04/15/2015 Pt Qvf6903 Hi intensity - 3.0-4.0 04/15/2015 Pt Hux5015 PT 19.5 seconds 04/04/2015 Pt Wns1432 INR 1.7 04/04/2015 Pt Lmi2935 Low Intensity - 1.5-2.0 04/04/2015 Pt Iww3325 Mod intensity - 2.0-3.0 04/04/2015 Pt Eba6852 Hi intensity - 3.0-4.0 04/04/2015 Pt Sos4245 PT 39.8 seconds 04/01/2015 Pt Xhy4975 INR 4.3 04/01/2015 Pt Ful7573 Low Intensity - 1.5-2.0 04/01/2015 Pt Oae5556 Mod intensity - 2.0-3.0 04/01/2015 Pt Lvu9614 Hi intensity - 3.0-4.0 04/01/2015 Metabolic Ord15 [...] Metabolic Ord15 CALCIUM 8.7 mg/dL 02/28/2015 Pt Ejo6010 PT 31.4 seconds 02/28/2015 Pt Yzr4324 INR 3.2 02/28/2015 Pt Hba1850 Low Intensity - 1.5-2.0 02/28/2015 Pt Zjb5515 Mod intensity - 2.0-3.0 02/28/2015 Pt Ucj5811 Hi intensity - 3.0-4.0 02/28/2015 Pt Xgu4142 PT 23.2 seconds 01/18/2015 Pt Jqp9794 INR 2.1 01/18/2015 Pt Hud0643 Low Intensity - 1.5-2.0 01/18/2015 Pt Lql4477 Mod intensity - 2.0-3.0 01/18/2015 Pt Yzg3371 Hi intensity - 3.0-4.0 01/18/2015 Pt Rfu0571 PT 18.2 seconds 01/10/2015 Pt Xud1137 INR 1.6 01/10/2015 Pt Sxu1218 Low Intensity - 1.5-2.0 01/10/2015 Pt Rua8192 Mod intensity - 2.0-3.0 01/10/2015 Pt Enn6747 Hi intensity - 3.0-4.0 01/10/2015 Review of [...] 10/27/2018 URINALYSIS NONAUTO W /O SCOPE CPT-4: 89810 10/27/2018 ADMIN INFLUENZA VIRU S VAC CPT-4: G0008 03/24/2018 ADMIN PNEUMOCOCCAL V ACCINE SNOMED CT: 32602310 CPT-4: G0009 03/24/2018 FLU VACC PRSV FREE I NC ANTIG Formatting Model/CDA Sections, Assigned to/Dorothea Tan CPT-4: 08466Bafioma 03/24/2018 Pneumococcal Polysac charide Vaccine, 23-Valent, Ad CPT-4: 96519 03/24/2018 TRIAMCINOLONE ACET I [place] NOS CPT-4: J3301 06/15/2017 THER/PROPH/DIAG INJ SC/IM CPT-4: 74469 06/15/2017 ADMIN PNEUMOCOCCAL V ACCINE SNOMED CT: 26130621 CPT-4: G0009 03/16/2017 ADMIN INFLUENZA VIRU S VAC CPT-4: G0008 03/16/2017 FLU VAC NO PRSV 4 VA L 3 YRS+ CPT-4: 75771 03/16/2017 PNEUMOCOCCAL VACC [address]: 75444515 CPT-4: 55046 03/16/2017 URINALYSIS NONAUTO W /O SCOPE CPT-4: 91600 08/26/2016 THER/PROPH/DIAG INJ SC/IM CPT-4: 87349 07/22/2016 TRIAMCINOLONE ACET I [place] NOS CPT-4: J3301 07/22/2016 ROCEPHIN, PER 250 MG CPT-4: J0696 07/22/2016 TRIAMCINOLONE ACET I [place] NOS CPT-4: J3301 02/05/2015 Vital Signs Date Vital 10/27/2018 Blood Pressure 1: 120/74 Code: 8480-6 BMI: 32.4 Code: 95807-6 Heart Rate 1: 65 bpm Height: 5'7" SpO2: 97% Weight: 207 lbs 09/27/2018 Blood Pressure 1: 128/74 Code: 8480-6 BMI: 32.4 Code: 97601-7 Heart Rate 1: 92 bpm Height: 5'7" SpO2: 97% Weight: 207 lbs 08/16/2018 Blood Pressure 1: 104/66 Code: 8480-6 BMI: 32.3 Code: 40124-0 Heart Rate 1: 94 bpm Height: 5'7" SpO2: 96% Weight: 206 lbs 07/11/2018 Blood Pressure 1: 102/68 Code: 8480-6 BMI: 34.5 Code: 75135-7 Heart Rate 1: 101 bpm Height: 5'7" SpO2: 98% Weight: 220 lbs 03/24/2018 Blood Pressure 1: 130/72 Code: 8480-6 BMI: 33.4 Code: 11689-1 Heart Rate 1: 82 bpm Height: 5'7" SpO2: 93% Weight: 213 lbs 11/18/2017 Blood Pressure 1: 128/70 Code: 8480-6 BMI: 33.6 Code: 84685-8 Heart Rate 1: 98 bpm Height: 5'7" SpO2: 97% Weight: 214 lbs 8 oz 09/30/2017 Blood Pressure 1: 100/50 Code: 8480-6 BMI: 34.0 Code: 45191-9 Heart Rate 1: 66 bpm Height: 5'7" SpO2: 96% Weight: 217 lbs 08/17/2017 Blood Pressure 1: 104/60 Code: 8480-6 BMI: 33.7 Code: 96627-4 Heart Rate 1: 99 bpm Height: 5'7" SpO2: 97% Weight: 215 lbs 06/15/2017 Blood Pressure 1: 120/64 Code: 8480-6 BMI: 33.5 Code: 90125-0 Heart Rate 1: 91 bpm Height: 5'7" SpO2: 94% Weight: 214 lbs 04/01/2017 Blood Pressure 1: 110/68 Code: 8480-6 BMI: 154.4 Code: 03520-8 Heart Rate 1: 66 bpm Height: 2'7" SpO2: 95% Weight: 211 lbs 03/16/2017 Blood Pressure 1: 130/72 Code: 8480-6 BMI: 33.0 Code: 54931-2 Heart Rate 1: 95 bpm Height: 5'7" SpO2: 97% Weight: 211 lbs 02/09/2017 Blood Pressure 1: 120/70 Code: 8480-6 BMI: 32.9 Code: 62245-3 Heart Rate 1: 78 bpm Height: 5'7" SpO2: 96% Weight: 210 lbs 10/13/2016 Blood Pressure 1: 118/76 Code: 8480-6 BMI: 32.6 Code: 22926-3 Heart Rate 1: 97 bpm Height: 5'7" SpO2: 98% Weight: 208 lbs 07/31/2016 Blood Pressure 1: 110/64 Code: 8480-6 BMI: 32.1 Code: 25573-4 Heart Rate 1: 79 bpm Height: 5'7" SpO2: 94% Weight: 205 lbs 07/22/2016 Blood Pressure 1: 108/74 Code: 8480-6 BMI: 32.1 Code: 64275-7 Heart Rate 1: 71 bpm Height: 5'7" SpO2: 97% Temperature: 36.9 (C ) / 98.4 (F) Weight: 205 lbs 05/01/2016 Blood Pressure 1: 120/72 Code: 8480-6 BMI: 32.7 Code: 95872-6 Heart Rate 1: 75 bpm Height: 5'7" SpO2: 94% Weight: 209 lbs 04/06/2016 Blood Pressure 1: 106/62 Code: 8480-6 BMI: 32.7 Code: 63413-5 Heart Rate 1: 83 bpm Height: 5'7" SpO2: 97% Weight: 209 lbs 03/06/2016 Blood Pressure 1: 112/68 Code: 8480-6 BMI: 32.7 Code: 61214-7 Heart Rate 1: 90 bpm Height: 5'7" SpO2: 97% Weight: 209 lbs 03/03/2016 Blood Pressure 1: 120/62 Code: 8480-6 BMI: 32.7 Code: 21808-6 Heart Rate 1: 92 bpm Height: 5'7" SpO2: 98% Weight: 209 lbs 02/07/2016 Blood Pressure 1: 110/64 Code: 8480-6 BMI: 32.7 Code: 14712-3 Heart Rate 1: 87 bpm Height: 5'7" SpO2: 97% Weight: 209 lbs 12/13/2015 Blood Pressure 1: 110/64 Code: 8480-6 BMI: 33.5 Code: 38192-4 Heart Rate 1: 90 bpm Height: 5'7" SpO2: 97% Weight: 214 lbs 12/03/2015 Blood Pressure 1: 132/76 Code: 8480-6 BMI: 33.4 Code: 65586-1 Heart Rate 1: 82 bpm Height: 5'7" SpO2: 99% Weight: 213 lbs 11/20/2015 Blood Pressure 1: 108/68 Code: 8480-6 BMI: 32.4 Code: 51586-1 Heart Rate 1: 77 bpm Height: 5'7" SpO2: 97% Weight: 207 lbs 09/17/2015 Blood Pressure 1: 122/76 Code: 8480-6 BMI: 33.0 Code: 67874-0 Heart Rate 1: 91 bpm Height: 5'7" SpO2: 97% Weight: 211 lbs 05/31/2015 Blood Pressure 1: 128/82 Code: 8480-6 BMI: 33.4 Code: 77081-7 Heart Rate 1: 98 bpm Height: 5'7" SpO2: 99% Weight: 213 lbs 02/05/2015 Blood Pressure 1: 128/80 Code: 8480-6 BMI: 32.6 Code: 23233-4 Heart Rate 1: 86 bpm Height: 5'7" SpO2: 97% Weight: 208 lbs 11/20/2014 Blood Pressure 1: 128/90 Code: 8480-6 BMI: 30.9 Code: 59223-7 Heart Rate 1: 94 bpm Height: 5'7" [...] ongoing 11/20/2015 None Hospital Follow Up _ [facility] er: fall 09/17/2015 None Hospital Follow [...] Findings Denies fever 05/31/2015 None hypothyroid 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 P ATIENT, LEVEL III Diagnosis: Urinary tract infection, site not specified[ICD10: N39.0] Brielle Pisano MD, [facility] CPT-4: 25733 10/27/2018 [id number]) [id number] EST. 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 P ATIENT, LEVEL IV Diagnosis: Essential (primary) hypertension[ICD10: I10] Diagnosis: Atrophy of thyroid (acquired)[ICD10: E03.4] Diagnosis: Sebaceous cyst[ICD10: L72.3] Diagnosis: Chronic atrial fibrillation[ICD10: I48.2] Diagnosis: [facility] (current) use of 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[ICD10: Z79.01] Valerie Pisano MD, [facility] CPT-4: 43980 08/16/2018 ([id number]) 09008 EST. P ATIENT, LEVEL IV Diagnosis: Atrophy of thyroid (acquired)[ICD10: E03.4] Diagnosis: Essential (primary) hypertension[ICD10: I10] Diagnosis: Other fatigue[ICD10: R53.83] Diagnosis: Localized edema[ICD10: R60.0] Valerie Pisano MD, [facility] CPT-4: 94357 07/11/2018 ([id number]) 95006 EST. P ATIENT, LEVEL IV Diagnosis: Essential (primary) hypertension[ICD10: I10] Diagnosis: Atrophy of thyroid (acquired)[ICD10: E03.4] Diagnosis: Chronic atrial fibrillation[ICD10: I48.2] Valerie Pisano MD, [facility] CPT-4: 41887 03/24/2018 ([id number]) 72591 EST. P ATIENT, LEVEL IV Diagnosis: Essential (primary) hypertension[ICD10: I10] Diagnosis: Atrophy of thyroid (acquired)[ICD10: E03.4] Diagnosis: Chronic atrial fibrillation[ICD10: I48.2] Valerie Pisano MD, [facility] CPT-4: 87169 11/18/2017 [id number] EST. PATIENT, LEVEL IV Diagnosis: Localized edema[ICD10: R60.0] Roxie Pisano MD, [facility] CPT-4: 94598 09/30/2017 ([id number]) 29847 EST. P ATIENT, LEVEL III Diagnosis: Essential (primary) hypertension[ICD10: I10] Valerie Pisano MD, C CPT-4: 98072 08/17/2017 ([id number]) 45613 EST. P ATIENT, LEVEL IV Diagnosis: Essential (primary) hypertension[ICD10: I10] Diagnosis: Atrophy of thyroid (acquired)[ICD10: E03.4] Diagnosis: Chronic atrial fibrillation[ICD10: I48.2] Diagnosis: Cervicalgia[ICD10: M54.2] Diagnosis: Other muscle spasm[ICD10: M62.838] Valerie Pisano MD, [facility] CPT- 4: 45430 06/15/2017 [id number] EST. PATIENT, LEVEL III Diagnosis: Laceration without foreign body of other finger without damage to nail, initial encounter[ICD10: S61.218A] Roxie Pisano MD, [facility] CPT-4: 08677 04/01/2017 ([id number]) 11077 EST. P ATIENT, LEVEL IV Diagnosis: Chronic atrial fibrillation[ICD10: I48.2] Diagnosis: [facility] (current) use of 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[ICD10: Z79.01] Diagnosis: Encounter for immunization[ICD10: Z23] Diagnosis: Atrophy of thyroid (acquired)[ICD10: E03.4] Valerie Pisano MD, [facility] CPT-4: 96928 03/16/2017 ([id number]) 01389 EST. 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 P ATIENT, LEVEL IV Diagnosis: Essential (primary) hypertension[ICD10: I10] Diagnosis: Chronic atrial fibrillation[ICD10: I48.2] Diagnosis: Tinea corporis[ICD10: B35.4] Diagnosis: [facility] (current) use of anticoagulants[ICD10: Z79.01] Diagnosis: Other skin changes[ICD10: R23.8] Valerie Pisano MD, [facility] CPT-4: 47941 10/13/2016 [id number] EST. PATIENT, LEVEL III Diagnosis: Other acute sinusitis[ICD10: J01.80] Diagnosis: Other allergic rhinitis[ICD10: J30.89] Roxie Pisano MD, [facility] CPT-4: 58619 07/31/2016 ([id number]) 47072 EST. P ATIENT, LEVEL III Diagnosis: Acute recurrent maxillary sinusitis[ICD10: J01.01] Valerie Pisano MD, [facility] CPT-4: 05197 07/22/2016 [id number] EST. PATIENT, LEVEL IV Diagnosis: Essential (primary) hypertension[ICD10: I10] Diagnosis: Other allergic rhinitis[ICD10: J30.89] Diagnosis: Localized edema[ICD10: R60.0] Roxie Pisano MD, [facility] CPT-4: 85826 05/01/2016 63432 EST. PATIENT, LEVEL III Diagnosis: Cellulitis of left lower limb[ICD10: L03.116] Diagnosis: Localized edema[ICD10: R60.0] Roxie Pisano MD, [facility] CPT-4: 53506 04/06/2016 ([id number]) Miscellaneou s no charge Diagnosis: Cellulitis of left lower limb[ICD10: L03.116] Diagnosis: Localized edema[ICD10: R60.0] Roxie Pisano MD, [facility] CPT-4: 07556 03/10/2016 ([id number]) Miscellaneou s no charge Diagnosis: Cellulitis of left lower limb[ICD10: L03.116] Roxie Pisano MD, [facility] CPT-4: 56697 03/06/2016 98791 EST. PATIENT, LEVEL IV Diagnosis: Cellulitis of left lower limb[ICD10: L03.116] Diagnosis: Localized edema[ICD10: R60.0] Roxie Pisano MD, [facility] CPT-4: 22798 03/03/2016 ([id number]) 32530 EST. 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 P ATIENT, LEVEL III Diagnosis: Iliotibial band syndrome, right leg[ICD10: M76.31] Diagnosis: Localized edema[ICD10: R60.0] Brielle Pisano MD, [facility] CPT- 4: 88281 12/13/2015 ([id number]) 70483 EST. P ATIENT, LEVEL III Diagnosis: Localized edema[ICD10: R60.0] Diagnosis: Essential (primary) hypertension[ICD10: I10] Brielle Pisano MD, [facility] CPT-4: 77114 12/03/2015 ([id number]) 67607 EST. 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 P ATIENT, LEVEL IV Diagnosis: Localized edema[ICD10: R60.0] Diagnosis: Other specified hypothyroidism[ICD10: E03.8] Diagnosis: Essential (primary) hypertension[ICD10: I10] [facility] CPT-4: 20750 05/31/2015 ([id number]) 00256 EST. P ATIENT, LEVEL III Diagnosis: ALLERGIC RHINITIS[ICD9: 477.9] Diagnosis: ESSENTIAL HYPERTENSION[ICD9: 401.9] [facility] CPT-4: 23996 02/05/2015 ([id number]) OFFICE [facility], [facility] LEVEL 4 Diagnosis: ESSENTIAL HYPERTENSION[ICD9: 401.9] Diagnosis: HYPOTHYROIDISM[ICD9: 244.9] Diagnosis: ACTINIC KERATOSIS[ICD9: 702.0] [facility] CPT-4: 20703 11/20/2014 Plan of Care Planned Activity Notes C odes Status Date Visit Plan: UTI - pt with positive urinalysis - culture sent if appropriate. Antibiotic electronically prescribed to pt's pharmacy of choice. Pt to call if symptoms do not improve. 10/27/2018 Patient Education: Patient Medication Summary Completed [...] Dr. Hernandez. 09/27/2018 Appointment: Valerie Pisano WPtel: [address] [place], [place] [phone] (15 min) Moderate 09/27/2018 Patient Education: Patient [...] daily. 08/16/2018 Appointment: Valerie Pisano WPtel: [phone] [facility] (15 min) Moderate 08/16/2018 Patient Education: Patient Medication Summary Completed 08/16/2018 Patient Education: Hypertension Completed 08/16/2018 Patient Education: Patient Medication Summary Completed 07/29/2018 Appointment: Brielle Cavazos WPtel: [phone] [phone] [place] (15 min) Moderate 07/12/2018 Visit [...] daily. 07/11/2018 Appointment: [facility] [phone] [facility] (15 min) Moderate 07/11/2018 Patient [...] today. 03/24/2018 Appointment: [facility]Ptel[facility] [phone] [facility] [address] (15 min) Moderate 03/24/2018 Patient [...] control. 11/18/2017 Appointment: Valerie Pisano WPtel: [phone] [facility] (15 min) Moderate 11/18/2017 Patient Education: Patient Medication Summary Completed 11/18/2017 Referral: Via [facility] WPtel: 1 [facility] Pt notified at appointment Appointment Confirmed [...] Unna Boots 09/30/2017 Appointment: Roxie Cazares WPtel: [phone] [phone] (30 min) Complex 09/30/2017 Patient Education: Patient Medication Summary Completed 09/30/2017 Care Plan: Referral Order SNOMED-CT : [id number] Pending 09/30/2017 Visit Plan: Hypertension - well [...] this time. 08/17/2017 Appointment: Valerie Pisano WPtel: [phone] [facility] (15 min) Moderate 08/17/2017 Patient Education: Patient [...] neck muscles. allergies - kenalog 40mg im [employer] - lot # [id number] expires september 2018 06/15/2017 Visit Plan: Hypertension [...] muscles. 06/15/2017 Appointment: [facility] P[facility]ano [facility]Ptel[facility] [phone] [facility] [address] (15 min) Moderate 06/15/2017 Patient Education: Patient Medication Summary Completed 06/15/2017 Care Plan: Referral Order SNOMED-CT : [id number] Pending 06/15/2017 Appointment: Nurse Visit 04/05/2017 Appointment: [...] booster. 04/01/2017 Appointment: [phone] (15 min) Moderate 04/01/2017 Patient Education: Patient [...] today 03/16/2017 Appointment: [facility]ano [facility]Ptel[facility] [phone] [facility] [address] (15 min) Moderate 03/16/2017 Patient Education: Patient Medication Summary Completed 03/16/2017 Patient Education: Obesity Completed 03/16/2017 Visit Plan: Hypertension - well con trofedeed [...] on previous levels of control. 1 pill mon/wed/fri, 1/2 pill tu/th/sat/sun take - This is a new order [...] spray. 02/09/2017 Appointment: Valerie Pisano WPtel: [phone] [facility] [address] [place] (15 min) Moderate 02/09/2017 Patient Education: Patient [...] 10/13/2016 Appointment: Val[facility] P[facility]ano WPtel: [phone] [facility] [address] [facility] [address] [place] (15 min) Moderate 10/13/2016 Patient Education: Patient Medication Summary Completed 10/13/2016 Patient Education: Obesity Completed 10/13/2016 Patient Education: Hypertension Completed 10/13/2016 Care Plan: Urine Culture Pending 08/31/2016 Appointment: [facility]ares [facility]el[phone] [facility] [place] Lab Draw 08/27/2016 Appointment: Nurse Visit 08/26/2016 [...] allergy spray. 07/31/2016 Appointment: Brielle Cavazos WPtel: [phone] (30 min) Complex 07/31/2016 Patient Education: Patient Medication Summary Completed 07/31/2016 Patient Education: Obesity Completed 07/31/2016 Visit Plan: Sinusitis - Pt has acut e infection - pain in face, maxillary region, Pt informed to use decongestant, RX given to patient, sinus rinses also recommended. Call if symptoms do not show improvement. 07/22/2016 Appointment: Valerie Pisano WPtel: [facility] [facility] (15 min) Moderate 07/22/2016 Patient [...] edema. 05/01/2016 Appointment: Brielle Cavazos WPtel: [phone] [phone] (30 min) Complex 05/01/2016 Patient Education: [...] to reduce peripheral edema. 04/06/2016 Appointment: Roxie Caazres WPtel: [facility]5 [facility] (30 min) Complex 04/06/2016 Patient Education: Patient Medication Summary Completed 04/06/2016 Patient Education: Obesity Completed 04/06/2016 Visit Plan: left foot - improved - pt finished with antibiotics - continue to monitor - notify clinic with any concerns. Repeat INR today. 03/10/2016 Appointment: Brielle Cavazos WPtel: [facility]5 [phone] (30 min) Complex 03/10/2016 Patient Education: Patient Medication Summary Completed 03/10/2016 Visit Plan: Cellulitis - continue w ith oral antibiotics as previously directed, return to clinic as previously directed, call for acute change in symptoms, worsening redness, warmth, discharge. 03/06/2016 Appointment: Brielle Cavazos WPtel: [facility]5 [phone] (15 min) Moderate 03/06/2016 Patient Education: Patient Medication Summary Completed 03/06/2016 Patient Education: Obesity Completed 03/06/2016 Visit Plan: Cellulitis - continue w ith oral antibiotics as previously directed, return to clinic as previously directed, call for acute change in symptoms, worsening redness, warmth, discharge. 03/03/2016 Appointment: Brielle Cavazos WPtel: [address] [place], [place] [phone] [place] [address] (15 min) Moderate 03/03/2016 Patient Education: Patient [...] and 3.5. 02/07/2016 Appointment: Brielle Cavazos WPtel: [address] [place], [place] [phone] (30 min) Complex 02/07/2016 Patient Education: Patient Medication Summary Completed 02/07/2016 Patient Education: Obesity Completed 02/07/2016 Patient Education: Hypertension Completed 02/07/2016 Appointment: Brielle Cavazos WPtel: [address] [place], [place] [phone] (30 min) Complex 02/04/2016 Visit Plan: Iliotibial [...] edema. 12/13/2015 Appointment: Brielle Cavazos WPtel: [phone] [phone] (15 min) Moderate 12/13/2015 Patient Education: [...] home. 12/03/2015 Appointment: Brielle Cavazos WPtel: [phone] [phone] (30 min) Complex 12/03/2015 Patient Education: [...] Hypertension Completed 02/05/2015 Appointment: Valerie Pisano WPtel: [address] [place] [place] [phone] (15 min) Moderate 01/29/2015 Visit Plan: Hypertension [...] of control. 11/20/2014 Appointment: Valerie Pisano WPtel: [address] [place], [place] [phone] [place] (S) New Patient 11/20/2014 Patient Education: Patient Medication Summary Completed 11/20/2014 Patient Education: Hypertension Completed 11/20/2014 Patient Education: Patient Medication Summary Completed 10/19/2014 Referral: [facility] WPtel: Referral Appointment Requested Referral: [facility] WPtel: [address] Referral Appointment Confirmed Instructions Comment CHECK LABS [...] deep - wound cleaned and debrided - ROSYLN and steri strips applied - pt is [...] twice daily. get blood work one w [facility] before next appt - fasting labs Decrease [...] neck muscles. allergies - kenalog 40mg im [employer] - lot # [id number] expires september 2018 . Hypertension - wel [...]
--- OUTSIDE RECORDS SUMMARY | 2019-09-12 11:26 | XMS REPORT | CCD ---
Author Author Clara Pisano Organization [facility] Address [address] [place] [address] Phone Care Team Providers Care Tube Coremaker Name Role Phone PP Unavailable CCM Unavailable Summary Purpose Interface Exchange Insurance Providers Payer name Policy type / Coverage type Covered green party ID Effective Begin Date Effective End Date WPS Medicare Part B Medicare Part B [id number] 2018 Unknown [employer] Medicare Part B [id number] Unknown Family history Sister Diagnosis Age At Onset defect Unknown Breast cancer Unknown Daughter Diagnosis Age At Onset Breast cancer Unknown Mother Diagnosis Age At Onset No Family Disease Entered N/A Social History Social History Element Codes Description Effective Dates Marital status Unknown M arried Lane 11/20/2014 Number of children Unknown 6 11/20/2014 Employment Unknown Retir ed 11/20/[address]: 0042957 Quit over 10 years ago 1963 11/20/2014 [...] ICD-9: 401.9 ICD-10: I10 Active 04/30/2016 Unknown 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 (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 anticoagulants ICD-9: V58.61 ICD-10: [...] ICD-9: 599.0 ICD-10: N39.0 Active 02/13/2016 Unknown Iliotibial band synd rafael, right leg [...] specified ICD-9: 599.0 ICD-10: N39.0 02/13/2016 Active Iliotibial band synd rafael, right leg [...] Start Date Stop Date Sta Fill Instructions Coumadin 4 mg tablet RxNorm: 668202 1 Tablet(s) PO daily 08/16/2018 08/10/2019 Active this is an update to her RX - she will l et you know when she needs refill triamcinolone aceton sreekanth 0.025 % topical cream RxNorm: 3640792 1 Application TOP QI D 08/16/2018 No Stop Date Active levothyroxine 125 mc g tablet RxNorm: 317082 TAKE ONE TABLET BY [facility] DAILY ON WEDNESDAY, WED, AND WEDNESDAY, AND 1/2 TABLET ON , , WED AND WEDNESDAY. TAKE ON AN EMPTY STOMACH 08/04/2018 04/30/2019 Active meclizine 25 mg tablet RxNorm: 173794 1 Tablet(s) PO TID as needed Dizziness 07/22/2018 No Stop Date Active meclizine 25 mg tablet RxNorm: 311829 1 Tablet(s) PO TID as needed Dizziness 07/19/2018 07/21/2018 In active furosemide 40 mg tablet RxNorm: 461004 1 Tablet(s) BID take 1.5 tabs twice a da y x 7 days then 1 pill daily thereafter 07/11/2018 02/05/2019 Active Coumadin 4 mg tablet RxNorm: 263358 1 Tablet(s) PO daily except 1.5 pills on WEDNESDAY AND Wednesday07/11/2018 08/15/2018 Inactive this is an update to her RX - she will let you know when she needs refill warfarin 5 mg tablet RxNorm: 975819 Tablet(s) TAKE ONE TABLET BY MOUTH DAILY EXCEPT / TAKE 4 MG 04/06/2018 08/22/2019 Active diltiazem 60 mg tablet RxNorm: 221409 1/2 Tablet(s) PO QID 03/24/2018 No Stop Date Active levothyroxine 125 mc g tablet RxNorm: 274878 TAKE ONE TABLET BY [facility] DAILY ON WEDNESDAY, WED, AND WEDNESDAY, AND 1/2 TABLET ON , , WED AND WEDNESDAY. TAKE ON AN EMPTY STOMACH 02/02/2018 07/31/2018 Inactive Coumadin 4 mg tablet RxNorm: 992692 TAKE ONE TABLET BY MOUTH DAILY ON AND Wednesday10/14/2017 07/10/2018 Inactive nystatin 100,000 uni t/gram topical cream RxNorm: 311155 1 Application TOP TID 08/17/2017 No Stop Date Active Voltaren 1 % topical gel RxNorm: 034846 2 Gram(s) TOP TID luiz ly to shoulder and neck 08/17/2017 No Stop Date Active triamcinolone aceton sreekanth 0.025 % topical cream RxNorm: 7012918 1 Application TOP BI D 08/17/2017 08/15/2018 In active levothyroxine 125 mc g tablet RxNorm: 482770 1 Tablet(s) UD 1 pill wed/wed/wed, 1/2 pill //wed/wed take ON AN EMPTY STOMACH 08/05/2017 02/01/2018 Inactive Coumadin 4 mg tablet RxNorm: 520005 1 Tablet(s) PO Wed/07/29/2017 10/13/2017 Inactive warfarin 5 mg tablet RxNorm: 165662 TAKE 1 AND 1/2 TABLETS BY MOUTH ON AND WEDNESDAY. TAKE ONLY 1 TABLET BY MOUTH ALL OTHER DAYS OF THE WEEK 07/12/2017 04/05/2018 In active furosemide 40 mg tablet RxNorm: 271521 Tablet(s) BID TAKE ONE TABLET BY MOUTH D AILY 06/15/2017 07/10/2018 Inactive Voltaren 1 % topical gel RxNorm: 249601 2 Gram(s) TOP TID luiz ly to shoulder and neck 06/15/2017 08/16/2017 Inactive Keflex 500 mg capsule RxNorm: 555143 1 Capsule(s) PO TID 04/01/2017 04/07/2017 Inactive furosemide 40 mg tablet RxNorm: 856430 TAKE ONE TABLET BY MOUTH DAILY 03/18/2017 06/14/2017 In active Claritin-D 12 Hour 5 mg-120 mg tablet,extended release RxNorm: 7858832 1 Tablet(s) PO BID 03/16/2017 05/14/2017 Inactive Lipitor 20 mg tablet RxNorm: 232169 1 Tablet(s) PO daily 02/09/2017 03/10/2017 Inactive lisinopril 2.5 mg ta blet RxNorm: 809948 1 Tablet(s) PO daily 02/09/2017 03/10/2017 Inactive Nasonex 50 mcg/actua tion [place] RxNorm: 1738587 1 [place] NASAL BID 02/09/2017 09/06/2017 Inactive levothyroxine 125 mc g tablet RxNorm: 026172 1 Tablet(s) UD 1 pill wed/wed/wed, 1/2 pill //wed/sun take ON AN EMPTY STOMACH 02/09/2017 08/04/2017 Inactive fluorouracil 5 % top ical cream RxNorm: 885033 1 Application TOP BID 02/09/2017 02/18/2017 Inactive potassium chloride E R 20 mEq tablet,extended release RxNorm: 793211 Tablet(s) TAKE ONE TABLET BY MOUTH DAILY 02/08/2017 02/02/2018 Inactive warfarin 5 mg tablet RxNorm: 893030 TAKE 1 AND 1/2 TABLETS BY MOUTH ON AND WEDNESDAY. TAKE ONLY 1 TABLET BY MOUTH ALL OTHER DAYS OF THE WEEK 12/14/2016 05/30/2017 In active potassium chloride E R 20 mEq tablet,extended release RxNorm: 034207 TAKE ONE TABLET BY MOUTH DAILY 10/29/2016 01/26/2017 Inactive warfarin 5 mg tablet RxNorm: 020113 TAKE 1 AND 1/2 TABLETS BY MOUTH ON AND WEDNESDAY. TAKE ONLY 1 TABLET BY MOUTH ALL OTHER DAYS OF THE WEEK 10/27/2016 12/13/2016 In active nystatin 100,000 uni t/gram topical cream RxNorm: 527466 1 Application TOP TID 10/13/2016 08/16/2017 In active nitrofurantoin 50 mg capsule RxNorm: 581707 1 Capsule(s) PO BID 09/04/2016 09/03/2016 Inactive nitrofurantoin macro crystal 50 mg capsule RxNorm: 455260 1 Capsule(s) PO BID 09/04/2016 09/10/2016 In active Cipro 500 mg tablet RxNorm: 169525 1 Tablet(s) PO BID 08/26/2016 10/12/2016 Inactive Zyrtec 10 mg tablet RxNorm: 1414486 1 Tablet(s) PO daily 07/31/2016 08/29/2016 Inactive prednisone 20 mg tablet RxNorm: 923509 2 Tablet(s) PO daily 07/31/2016 08/02/2016 Inactive Kenalog 40 mg/mL zohra pension for injection RxNorm: 2195866 Milliliter(s) Inj 07/22/2016 07/22/2016 In active ceftriaxone 500 mg s olution for injection RxNorm: 4232921 Inj 07/22/2016 07/22/2016 Inactive Flonase Allergy Reli ef 50 mcg/actuation nasal spray,suspension RxNorm: 4869616 1 [place] NASAL BID 07/22/2016 08/20/2016 Inactive azithromycin 250 mg tablet RxNorm: 201737 2 Tablet(s) PO on day #1, then 1 pill daily x 4 days 07/22/2016 10/12/2016 Inactive warfarin 5 mg tablet RxNorm: 539682 TAKE 1 AND 1/2 TABLETS BY MOUTH ON AND WEDNESDAY. TAKE ONLY 1 TABLET BY MOUTH ALL OTHER DAYS OF THE WEEK 07/09/2016 09/30/2016 In active levothyroxine 125 mc g tablet RxNorm: 294407 Tablet(s) TAKE ONE TA BLET BY MOUTH DAILY ON AN EMPTY STOMACH 06/23/2016 02/08/2017 Inactive levothyroxine 125 mc g tablet RxNorm: 798810 TAKE ONE TABLET BY [facility] DAILY ON AN EMPTY STOMACH 06/23/2016 06/22/2016 Inactive levothyroxine 125 mc g tablet RxNorm: 307293 TAKE ONE TABLET BY [facility] DAILY ON AN EMPTY STOMACH 06/23/2016 08/04/2017 Inactive cetirizine 10 mg tablet RxNorm: 5073550 TAKE ONE TABLET BY MOUTH DAILY 06/16/2016 10/13/2016 In active furosemide 40 mg tablet RxNorm: 914475 Tablet(s) TAKE ONE TABLET BY MOUTH DAILY 06/05/2016 12/01/2016 In active cetirizine 10 mg tablet RxNorm: 9815935 1 Tablet(s) PO daily 05/01/2016 05/30/2016 Inactive Levaquin 250 mg tablet RxNorm: 102046 Tablet(s) PO 2 pills day one and 1 pill day 2-7 04/06/2016 07/21/2016 Inactive warfarin 5 mg tablet RxNorm: 555562 Tablet(s) 1/2 TABLETS BY MOUTH ON AND WEDNESDAY. TAKE ONLY 1 TABLET BY MOUTH ALL OTHER DAYS OF THE WEEK 03/18/2016 07/07/2016 In active triamcinolone aceton sreekanth 0.025 % topical cream RxNorm: 3638981 1 Application TOP BI D 03/10/2016 08/16/2017 In active potassium chloride E R 20 mEq tablet,extended release RxNorm: 594563 1 Tablet(s) PO daily 03/04/2016 06/01/2016 Inactive Levaquin 250 mg tablet RxNorm: 902474 Tablet(s) PO 2 pills day one and 1 pill day 2-7 03/04/2016 04/05/2016 Inactive Levaquin 250 mg tablet RxNorm: 601717 Tablet(s) PO 2 pills day one and 1 pill day 2-7 03/03/2016 03/03/2016 Inactive potassium chloride E R 20 mEq tablet,extended release RxNorm: 110740 1 Tablet(s) PO daily 03/03/2016 03/03/2016 Inactive Cipro 500 mg tablet RxNorm: 179617 1 Tablet(s) PO BID 02/20/2016 07/21/2016 Inactive Cipro 500 mg tablet RxNorm: 062326 1 Tablet(s) PO BID 02/20/2016 02/19/2016 Inactive furosemide 40 mg tablet RxNorm: 459737 TAKE ONE TABLET BY MOUTH DAILY 01/27/2016 01/26/2016 In active warfarin 5 mg tablet RxNorm: 964801 TAKE 1 AND 1/2 TABLETS BY MOUTH ON AND WEDNESDAY. TAKE ONLY 1 TABLET BY MOUTH ALL OTHER DAYS OF THE WEEK 01/27/2016 01/26/2016 In active furosemide 40 mg tablet RxNorm: 445252 TAKE ONE TABLET BY MOUTH DAILY 01/27/2016 06/04/2016 In active warfarin 5 mg tablet RxNorm: 459855 TAKE 1 AND 1/2 TABLETS BY MOUTH ON AND WEDNESDAY. TAKE ONLY 1 TABLET BY MOUTH ALL OTHER DAYS OF THE WEEK 01/27/2016 03/17/2016 In active potassium chloride E R 20 mEq tablet,extended release RxNorm: 443584 1 Tablet(s) PO daily 11/20/2015 03/02/2016 Inactive furosemide 40 mg tablet RxNorm: 280304 TAKE ONE TABLET BY MOUTH DAILY 11/12/2015 01/26/2016 In active Zovirax 5 % topical cream RxNorm: 417829 TOP QID 0 09/24/2015 09/23/2015 Inactive Zovirax 5 % topical cream RxNorm: 584988 TOP QID 0 09/24/2015 11/19/2015 Inactive nystatin 100,000 uni t/gram topical cream RxNorm: 024721 1 Application TOP TID 09/17/2015 10/12/2016 In active warfarin 5 mg tablet RxNorm: 200331 TAKE 1 AND 1/2 TABLETS BY MOUTH ON AND WEDNESDAY. TAKE ONLY 1 TABLET BY MOUTH ALL OTHER DAYS OF THE WEEK 08/19/2015 01/05/2016 In active loratadine 10 mg tablet RxNorm: 688778 1 Tablet(s) PO daily 07/30/2015 07/23/2016 Inactive loratadine 10 mg tablet RxNorm: 654789 1 Tablet(s) PO daily 07/30/2015 07/29/2015 Inactive furosemide 40 mg tablet RxNorm: 667324 TAKE ONE TABLET BY MOUTH DAILY 06/24/2015 11/11/2015 In active levothyroxine 125 mc g tablet RxNorm: 236513 1 Tablet(s) PO daily 05/31/2015 05/24/2016 Inactive furosemide 40 mg tablet RxNorm: 526878 1 Tablet(s) PO daily 04/05/2015 06/23/2015 Inactive warfarin 5 mg tablet RxNorm: 171889 TAKE 1 AND 1/2 TABLETS BY MOUTH ON AND WEDNESDAY. TAKE ONLY 1 TABLET BY MOUTH ALL OTHER DAYS OF THE WEEK 02/12/2015 07/29/2015 In active Flonase Allergy Reli ef 50 mcg/actuation nasal spray,suspension RxNorm: 2 [place] NASAL daily 02/05/2015 03/06/2015 Inactive Kenalog 40 mg/mL zohra pension for injection RxNorm: 2008416 Milliliter(s) Inj 02/05/2015 02/05/2015 In active warfarin 5 mg tablet RxNorm: 189132 Take 7.5mg (1 1/2 tablets) Wednesday and and 1 Tablet(s) PO (5mg) all other days 01/11/2015 02/09/2015 Inactive levothyroxine 125 mc g tablet RxNorm: 732914 1 Tablet(s) PO every other day 01/01/2015 05/30/2015 In active alternate with 150 levothyroxine 150 mc g tablet RxNorm: 000809 1 Tablet(s) PO every other day 01/01/2015 05/30/2015 In active alternate with 125 loratadine 10 mg tablet RxNorm: 062720 Tablet(s) PO as needed No Start Date Active Fish Oil 1,000 mg ca psule RxNorm: 1 Capsule(s) PO TID No Start Date Active magnesium 250 mg tablet RxNorm: 1 Tablet(s) PO daily No Start Date Active Vitamin D3 2,000 uni t tablet RxNorm: 281502 2 Tablet(s) PO daily No Start Date Active Fosamax 35 mg tablet RxNorm: 203481 1 Tablet(s) PO QW No Start Date Active levothyroxine 125 mc g tablet RxNorm: 545766 1 Tablet(s) PO daily No Start Date 12/31/2014 Inactive levothyroxine 150 mc g tablet RxNorm: 626285 1 Tablet(s) PO daily No Start Date 12/31/2014 Inactive diltiazem 60 mg tablet RxNorm: 604763 1 Tablet(s) PO QID No Start Date 03/23/2018 Inactive meclizine 25 mg tablet RxNorm: 964917 1 Tablet(s) PO TID as needed Dizziness No Start Date 07/18/2018 Inactive furosemide 40 mg tablet RxNorm: 185319 1 Tablet(s) PO daily No Start Date 04/04/2015 Inactive potassium chloride RxNorm: miscellaneous No Start Date 11/19/2015 Inactive Vitamin D2 oral RxNorm: 4018 oral No Start Date 05/31/2015 Inactive warfarin 5 mg tablet RxNorm: 324188 1 Tablet(s) PO daily No Start Date 01/10/2015 Inactive Coumadin 4 mg tablet RxNorm: 328481 1 Tablet(s) PO Wed/ No Start Date 07/28/2017 Inactive Medication Administered Medication Codes Instruc tions Start Date Status ceftriaxone 500 mg solution for injection RxNorm: 7100119 07/22/2016 No longer A ctive Kenalog 40 mg/mL suspension for injection RxNorm: 4614876 Milliliter 07/22/2016 No longer Active Kenalog 40 mg/mL suspension for injection RxNorm: 7141975 Milliliter 02/05/2015 No longer Active Immunizations Vaccine Codes Date Status Influenza CVX: 141 03/24 completed Pneumococcal (Adult) CVX: 33 03/24/2018 completed Influenza CVX: 141 03/16 completed Pneumococcal (Adult) CVX: 133 03/16/2017 completed Influenza CVX: 141 05/06 completed Influenza CVX: 141 04/28 completed Pneumococcal CVX: 33 06/1999 completed Assessments Condition Codes Effectiv e Dates Atrophy of thyroid (acquired) ICD-10 : E03.4 ICD-9: 244.8 09/27/2018 Other allergic rhinitis ICD-10: J30. 89 ICD-9: 477.8 09/27/2018 Essential (primary) hypertension ICD -10: I10 ICD-9: 401.9 09/27/2018 Other skin changes ICD-10: R23.8 ICD-9: 782.9 09/27/2018 [facility] (current) use of anticoagulants ICD-10: Z79.01 ICD-9: [...] not specified ICD-10: N39.0 ICD-9: 599.0 02/14/2016 Iliotibial band syndrome, right leg ICD-10: M76.31 ICD-9: 728.89 12/13/2015 Pain in right foot ICD-10: M79.671 ICD-9: 729.5 11/20/2015 Muscle spasm of back ICD-10: M62.830 ICD-9: 724.8 09/17/2015 Other specified hypothyroidism ICD-1 0: E03.8 ICD-9: 244.8 05/31/2015 ESSENTIAL HYPERTENSION ICD-9: 401.9 02/05/2015 ALLERGIC RHINITIS ICD-9: 477.9 02/05/2015 HYPOTHYROIDISM ICD-9: 244.9 11/20/2014 ACTINIC KERATOSIS ICD-9: 702.0 11/20/2014 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 ICD-9: V58.61 10/19/2014 Reason For Visit Reason For Visit Effective Dates Notes hypertension 09/27/2018 hypertension 08/16/2018 hypertension 07/11/2018 hypertension [...] Code Item Item Code Result Date Pt Bqe9522 PT 24.4 seconds 10/24/2018 Pt Rry4045 INR 2.2 10/24/2018 Pt Uio7701 Low Intensity - 1.5-2.0 10/24/2018 Pt Nnd3934 Mod intensity - 2.0-3.0 10/24/2018 Pt Dmp2047 Hi intensity - 3.0-4.0 10/24/2018 Pt Gpw9878 PT 23.8 seconds 09/29/2018 Pt Gro1547 INR 2.2 09/29/2018 Pt Mkc7334 Low Intensity - 1.5-2.0 09/29/2018 Pt Oyh5675 Mod intensity - 2.0-3.0 09/29/2018 Pt Afj3540 Hi intensity - 3.0-4.0 09/29/2018 Pt Xot7948 PT 19.6 seconds 09/19/2018 Pt Jpg4229 INR 1.7 09/19/2018 Pt Ufd5973 Low Intensity - 1.5-2.0 09/19/2018 Pt Yxc4317 Mod intensity - 2.0-3.0 09/19/2018 Pt Gfc0308 Hi intensity - 3.0-4.0 09/19/2018 Pt Xgg6113 PT 16.8 seconds 09/12/2018 Pt Tdm4170 INR 1.4 09/12/2018 Pt Kjj8955 Low Intensity - 1.5-2.0 09/12/2018 Pt Vge6179 Mod intensity - 2.0-3.0 09/12/2018 Pt Eve4284 Hi intensity - 3.0-4.0 09/12/2018 Pt Juz4615 PT 13.1 seconds 09/07/2018 Pt Osc7919 INR 1.0 09/07/2018 Pt Fkd2898 Low Intensity - 1.5-2.0 09/07/2018 Pt Qql7593 Mod intensity - 2.0-3.0 09/07/2018 Pt Bto4940 Hi intensity - 3.0-4.0 09/07/2018 Pt Enk9772 PT 24.1 seconds 08/23/2018 Pt Hqw9176 INR 2.2 08/23/2018 Pt Jfb9863 Low Intensity - 1.5-2.0 08/23/2018 Pt Rfe5909 Mod intensity - 2.0-3.0 08/23/2018 Pt Kzw7480 Hi intensity - 3.0-4.0 08/23/2018 Pt Tsz1675 PT 30.9 seconds 08/16/2018 Pt Bfh1709 INR 3.0 08/16/2018 Pt Wfs4040 Low Intensity - 1.5-2.0 08/16/2018 Pt Ysx9127 Mod intensity - 2.0-3.0 08/16/2018 Pt Qlc1477 Hi intensity - 3.0-4.0 08/16/2018 Pt Vpj0851 PT 29.5 seconds 08/01/2018 Pt Itl4922 INR 2.8 08/01/2018 Pt Zjb1405 Low Intensity - 1.5-2.0 08/01/2018 Pt Fbn0607 Mod intensity - 2.0-3.0 08/01/2018 Pt Ocd6528 Hi intensity - 3.0-4.0 08/01/2018 Pt Dvk6016 PT 24.2 seconds 07/25/2018 Pt Ebm0457 INR 2.2 07/25/2018 Pt Ief1481 Low Intensity - 1.5-2.0 07/25/2018 Pt Wza8124 Mod intensity - 2.0-3.0 07/25/2018 Pt Yaj3294 Hi intensity - 3.0-4.0 07/25/2018 Pt Jed7861 PT 38.6 seconds 07/19/2018 Pt Hyg4899 INR 4.0 07/19/2018 Pt Bmo3367 Low Intensity - 1.5-2.0 07/19/2018 Pt Pze0024 Mod intensity - 2.0-3.0 07/19/2018 Pt Apc2808 Hi intensity - 3.0-4.0 07/19/2018 Pt Usm5691 PT 25.7 seconds 07/11/2018 Pt Aci4158 INR 2.4 07/11/2018 Pt Ibh4611 Low Intensity - 1.5-2.0 07/11/2018 Pt Mlk6691 Mod intensity - 2.0-3.0 07/11/2018 Pt Kct1259 Hi intensity - 3.0-4.0 07/11/2018 Pt Khv2471 PT 18.5 seconds 07/08/2018 Pt Afd3134 INR 1.6 07/08/2018 Pt Wxt0238 Low Intensity - 1.5-2.0 07/08/2018 Pt Num8245 Mod intensity - 2.0-3.0 07/08/2018 Pt Jfd1204 Hi intensity - 3.0-4.0 07/08/2018 Pt Syn6452 PT 27.3 seconds 06/29/2018 Pt Bsw1156 INR 2.6 06/29/2018 Pt Ztt8704 Low Intensity - 1.5-2.0 06/29/2018 Pt Hvo8893 Mod intensity - 2.0-3.0 06/29/2018 Pt Ksr6775 Hi intensity - 3.0-4.0 06/29/2018 Pt Onz4801 PT 24.0 seconds 05/26/2018 Pt Hqi8590 INR 2.2 05/26/2018 Pt Jgu1836 Low Intensity - 1.5-2.0 05/26/2018 Pt Dht1736 Mod intensity - 2.0-3.0 05/26/2018 Pt Xnl0770 Hi intensity - 3.0-4.0 05/26/2018 Tsh Ord6 [...] 29.6 pg 03/25/2018 Cbc With Differential Ord2 Howell% 9.5 % 03/25/2018 Cbc With Differential Ord2 [...] 2.19 K/ul 03/25/2018 Cbc With Differential Ord2 [place] ABS# 0.8 K/ul 03/25/2018 Cbc With Differential Ord2 Eos ABS# 0.3 K/ul 03/25/2018 Cbc With Differential Ord2 Baso ABS# 0.0 K/ul 03/25/2018 Lipid Ord30 CHOL 156 mg/dL 03/25/2018 Lipid Ord30 HDL 52.0 mg/dl 03/25/2018 Lipid Ord30 TRIG 98 mg/dL 03/25/2018 Lipid Ord30 LDL 84 mg/dL 03/25/2018 Lipid Ord30 C/HDL 3.0 Ratio 03/25/2018 Free T4 Ubz740 FREE T4 1.73 ng/dL 03/25/2018 Comp Metabolic Wfv794 NA 143 mEq/L 03/25/2018 Comp Metabolic Irs295 K 4.6 mEq/L 03/25/2018 Comp Metabolic Mea401 CL 108 mEq/L 03/25/2018 Comp Metabolic Bzc286 CO2 26.0 mEq/L 03/25/2018 Comp Metabolic Zzc435 AN ION GAP 14 03/25/2018 Comp Metabolic Ozf899 GL UCOSE 87 mg/dL 03/25/2018 Comp Metabolic Rju143 Cr eat 1.2 mg/dL 03/25/2018 Comp Metabolic Tga835 eG FR 48 ml/min/1.73m2 03/25 Comp Metabolic Sdt828 BUN 18 mg/dL 03/25/2018 Comp Metabolic Jzj535 B/ C Ratio 15.5 Ratio 03/25/2018 Comp Metabolic Cez723 CA LCIUM 9.1 mg/dL 03/25/2018 Comp Metabolic Trd941 AL K PHOS 58 U/L 03/25/2018 Comp Metabolic Yao087 T(SGOT) 21 U/L 03/25/2018 Comp Metabolic Dgu097 AL T(SGPT) 13 U/L 03/25/2018 Comp Metabolic Qcx267 BI LI T 0.7 mg/dL 03/25/2018 Comp Metabolic Sqr336 AL BUMIN 3.2 g/dL 03/25/2018 Comp Metabolic Qki205 TP RO 5.5 g/dL 03/25/2018 Comp Metabolic Fhy665 GL OB 2.3 g/dL 03/25/2018 Comp Metabolic Kbd410 A/ G Ratio 1.4 Ratio 03/25/2018 Comp Metabolic Wgp464 Os mo 286 mOsmo 03/25/2018 Pt Hhf7274 PT 29.0 seconds 03/22/2018 Pt Gxb5207 INR 2.7 03/22/2018 Pt Vrr6518 Low Intensity - 1.5-2.0 03/22/2018 Pt Phs3208 Mod intensity - 2.0-3.0 03/22/2018 Pt Rdi5116 Hi intensity - 3.0-4.0 03/22/2018 Pt Xnm5769 PT 27.1 seconds 02/25/2018 Pt Atf8209 INR 2.5 02/25/2018 Pt Pns8904 Low Intensity - 1.5-2.0 02/25/2018 Pt Oly0262 Mod intensity - 2.0-3.0 02/25/2018 Pt Adk7819 Hi intensity - 3.0-4.0 02/25/2018 Pt Aln7432 PT 26.1 seconds 01/26/2018 Pt Aye9178 INR 2.4 01/26/2018 Pt Ycw9738 Low Intensity - 1.5-2.0 01/26/2018 Pt Tla8937 Mod intensity - 2.0-3.0 01/26/2018 Pt Hng7715 Hi intensity - 3.0-4.0 01/26/2018 Pt Wrz7449 PT 22.8 seconds 12/24/2017 Pt Usg2126 INR 2.0 12/24/2017 Pt Xwv4946 Low Intensity - 1.5-2.0 12/24/2017 Pt Ntu2544 Mod intensity - 2.0-3.0 12/24/2017 Pt Xmo3962 Hi intensity - 3.0-4.0 12/24/2017 Pt Jjs8582 PT 29.4 seconds 11/18/2017 Pt Gte6292 INR 2.8 11/18/2017 Pt Sjy8465 Low Intensity - 1.5-2.0 11/18/2017 Pt Uyy5503 Mod intensity - 2.0-3.0 11/18/2017 Pt Kzn6503 Hi intensity - 3.0-4.0 11/18/2017 Pt Zre3222 PT 26.6 seconds 09/13/2017 Pt Lba8967 INR 2.4 09/13/2017 Pt Lko4615 Low Intensity - 1.5-2.0 09/13/2017 Pt Ygm7790 Mod intensity - 2.0-3.0 09/13/2017 Pt Fqc5258 Hi intensity - 3.0-4.0 09/13/2017 Pt Nnt1408 PT 28.2 seconds 08/10/2017 Pt Jda1765 INR 2.6 08/10/2017 Pt Oef1217 Low Intensity - 1.5-2.0 08/10/2017 Pt Yto3860 Mod intensity - 2.0-3.0 08/10/2017 Pt Jvz8771 Hi intensity - 3.0-4.0 08/10/2017 Pt Gfh5159 PT 33.9 seconds 07/27/2017 Pt Rko5314 INR 3.3 07/27/2017 Pt Hyn7312 Low Intensity - 1.5-2.0 07/27/2017 Pt Nne9041 Mod intensity - 2.0-3.0 07/27/2017 Pt Zkd2069 Hi intensity - 3.0-4.0 07/27/2017 Pt Xlm5968 PT 29.1 seconds 06/29/2017 Pt Vjk1880 INR 2.7 06/29/2017 Pt Raj0548 Low Intensity - 1.5-2.0 06/29/2017 Pt Gxl6007 Mod intensity - 2.0-3.0 06/29/2017 Pt Fre1704 Hi intensity - 3.0-4.0 06/29/2017 Pt Icp9159 PT 30.3 seconds 06/11/2017 Pt Vvx3888 INR 2.9 06/11/2017 Pt Vul7364 Low Intensity - 1.5-2.0 06/11/2017 Pt Tam4979 Mod intensity - 2.0-3.0 06/11/2017 Pt Psx7766 Hi intensity - 3.0-4.0 06/11/2017 Pt Xfv0874 PT 39.1 seconds 06/07/2017 Pt Qwm5453 INR 3.9 06/07/2017 Pt Pwu2731 Low Intensity - 1.5-2.0 06/07/2017 Pt Sfn6192 Mod intensity - 2.0-3.0 06/07/2017 Pt Ucv2713 Hi intensity - 3.0-4.0 06/07/2017 Pt Vxh5602 PT 34.2 seconds 05/26/2017 Pt Kkt5857 INR 3.3 05/26/2017 Pt Ukt8529 Low Intensity - 1.5-2.0 05/26/2017 Pt Bvt3516 Mod intensity - 2.0-3.0 05/26/2017 Pt Qqe5877 Hi intensity - 3.0-4.0 05/26/2017 Comp Metabolic Pfm337 NA 138 mEq/L 04/23/2017 Comp Metabolic Aws814 K 4.2 mEq/L 04/23/2017 Comp Metabolic Tsu112 CL 101 mEq/L 04/23/2017 Comp Metabolic Qsh956 CO2 28.0 mEq/L 04/23/2017 Comp Metabolic Qjw617 AN ION GAP 13 04/23/2017 Comp Metabolic Voh220 GL UCOSE 89 mg/dL 04/23/2017 Comp Metabolic Hqo393 Cr eat 1.1 mg/dL 04/23/2017 Comp Metabolic Zlo058 eG FR 51 ml/min/1.73m2 04/23 Comp Metabolic Eky839 BUN 26 mg/dL 04/23/2017 Comp Metabolic Kgq223 B/ C Ratio 23.9 Ratio 04/23/2017 Comp Metabolic Tuj217 CA LCIUM 9.4 mg/dL 04/23/2017 Comp Metabolic Idq342 AL K PHOS 95 U/L 04/23/2017 Comp Metabolic Ucx940 T(SGOT) 18 U/L 04/23/2017 Comp Metabolic Ikx826 AL T(SGPT) 17 U/L 04/23/2017 Comp Metabolic Yvm846 BI LI T 0.7 mg/dL 04/23/2017 Comp Metabolic Vft975 AL BUMIN 3.2 g/dL 04/23/2017 Comp Metabolic Xuv258 TP RO 5.6 g/dL 04/23/2017 Comp Metabolic Hok213 GL OB 2.4 g/dL 04/23/2017 Comp Metabolic Sgb825 A/ G Ratio 1.3 Ratio 04/23/2017 Comp Metabolic Buv938 Os mo 280 mOsmo 04/23/2017 Pt Fhc8174 PT 28.6 seconds 04/23/2017 Pt Gho6225 INR 2.7 04/23/2017 Pt Tvj8183 Low Intensity - 1.5-2.0 04/23/2017 Pt Nww4206 Mod intensity - 2.0-3.0 04/23/2017 Pt Gsn1679 Hi intensity - 3.0-4.0 04/23/2017 Pt Cdq7100 PT 24.4 seconds 03/16/2017 Pt Oin7013 INR 2.2 03/16/2017 Pt Sam7158 Low Intensity - 1.5-2.0 03/16/2017 Pt Ijo9805 Mod intensity - 2.0-3.0 03/16/2017 Pt Gwm7777 Hi intensity - 3.0-4.0 03/16/2017 Pt Ufw2704 PT 28.2 seconds 02/24/2017 Pt Hbe7268 INR 2.6 02/24/2017 Pt Xqd1163 Low Intensity - 1.5-2.0 02/24/2017 Pt Ynu2120 Mod intensity - 2.0-3.0 02/24/2017 Pt Jep0677 Hi intensity - 3.0-4.0 02/24/2017 Pt Uhj1889 PT 26.8 seconds 02/08/2017 Pt Yvz9158 INR 2.5 02/08/2017 Pt Vus4414 Low Intensity - 1.5-2.0 02/08/2017 Pt Ves2606 Mod intensity - 2.0-3.0 02/08/2017 Pt Ruw3737 Hi intensity - 3.0-4.0 02/08/2017 Lipid Ord30 CHOL 150 mg/dL 01/25/2017 Lipid Ord30 HDL 55.0 mg/dl 01/25/2017 Lipid Ord30 TRIG 66 mg/dL 01/25/2017 Lipid Ord30 LDL 82 mg/dL 01/25/2017 Lipid Ord30 C/HDL 2.7 Ratio 01/25/2017 Pt Pft0563 PT 29.9 seconds 01/25/2017 Pt Vwz4771 INR 2.8 01/25/2017 Pt Skt2346 Low Intensity - 1.5-2.0 01/25/2017 Pt Xok2228 Mod intensity - 2.0-3.0 01/25/2017 Pt Rel6035 Hi intensity - 3.0-4.0 01/25/2017 Comp Metabolic Hcq929 NA 143 mEq/L 01/25/2017 Comp Metabolic Ink110 K 3.9 mEq/L 01/25/2017 Comp Metabolic Avt072 CL 108 mEq/L 01/25/2017 Comp Metabolic Zmb882 CO2 23.0 mEq/L 01/25/2017 Comp Metabolic Xoy982 AN ION GAP 16 01/25/2017 Comp Metabolic Njs318 GL UCOSE 80 mg/dL 01/25/2017 Comp Metabolic Aoy395 Cr eat 1.0 mg/dL 01/25/2017 Comp Metabolic Xvf058 eG FR 57 ml/min/1.73m2 01/25 Comp Metabolic Fwi339 BUN 25 mg/dL 01/25/2017 Comp Metabolic Fht138 B/ C Ratio 25.0 Ratio 01/25/2017 Comp Metabolic Gvl162 CA LCIUM 8.5 mg/dL 01/25/2017 Comp Metabolic Lnj342 AL K PHOS 81 U/L 01/25/2017 Comp Metabolic Ayx887 T(SGOT) 19 U/L 01/25/2017 Comp Metabolic Mnz561 AL T(SGPT) 23 U/L 01/25/2017 Comp Metabolic Hmi764 BI LI T 0.5 mg/dL 01/25/2017 Comp Metabolic Dxz762 AL BUMIN 2.9 g/dL 01/25/2017 Comp Metabolic Ugb585 TP RO 5.1 g/dL 01/25/2017 Comp Metabolic Tfe868 GL OB 2.2 g/dL 01/25/2017 Comp Metabolic Oyg204 A/ G Ratio 1.3 Ratio 01/25/2017 Comp Metabolic Yds903 Os mo 288 mOsmo 01/25/2017 Cbc With [...] 30.7 pg 01/25/2017 Cbc With Differential Ord2 Howell% 8.2 % 01/25/2017 Cbc With Differential Ord2 [...] 3.10 K/ul 01/25/2017 Cbc With Differential Ord2 Howell ABS# 0.8 K/ul 01/25/2017 Cbc With Differential Ord2 Eos ABS# 0.4 K/ul 01/25/2017 Cbc With Differential Ord2 Baso ABS# 0.1 K/ul 01/25/2017 Free T4 Nns853 FREE T4 2.09 ng/dL 01/25/2017 Tsh Ord6 hTSH II 0.46 uIU/mL 01/25/2017 Pt Ikb9288 PT 26.1 seconds 11/26/2016 Pt Dhe1866 INR 2.6 11/26/2016 Pt Hno7949 Low Intensity - 1.5-2.0 11/26/2016 Pt Vms8627 Mod intensity - 2.0-3.0 11/26/2016 Pt Mqf5194 Hi intensity - 3.0-4.0 11/26/2016 Pt Hyv8450 PT 26.2 seconds 10/29/2016 Pt Xgu4143 INR 2.6 10/29/2016 Pt Hoz1166 Low Intensity - 1.5-2.0 10/29/2016 Pt Brg6145 Mod intensity - 2.0-3.0 10/29/2016 Pt Knc1250 Hi intensity - 3.0-4.0 10/29/2016 Pt Htf6884 PT 20.8 seconds 10/13/2016 Pt Uqb5828 INR 1.9 10/13/2016 Pt Pdh6325 Low Intensity - 1.5-2.0 10/13/2016 Pt Koi8359 Mod intensity - 2.0-3.0 10/13/2016 Pt Vov9642 Hi intensity - 3.0-4.0 10/13/2016 Pt Qzg6764 PT 26.5 seconds 10/01/2016 Pt Pwh6232 INR 2.6 10/01/2016 Pt Kxe9513 Low Intensity - 1.5-2.0 10/01/2016 Pt Srb5753 Mod intensity - 2.0-3.0 10/01/2016 Pt Jpl1679 Hi intensity - 3.0-4.0 10/01/2016 Pt Lzz3370 PT 24.6 seconds 09/14/2016 Pt Ncf9959 INR 2.4 09/14/2016 Pt Vha3302 Low Intensity - 1.5-2.0 09/14/2016 Pt Xjr1243 Mod intensity - 2.0-3.0 09/14/2016 Pt Otp6546 Hi intensity - 3.0-4.0 09/14/2016 Pt Hlq0430 PT 18.0 seconds 09/07/2016 Pt Pia1501 INR 1.6 09/07/2016 Pt Bxd3686 Low Intensity - 1.5-2.0 09/07/2016 Pt Sqq3952 Mod intensity - 2.0-3.0 09/07/2016 Pt Bfv4196 Hi intensity - 3.0-4.0 09/07/2016 Pt Ocj8692 PT 23.7 seconds 08/12/2016 Pt Boh6749 INR 2.2 08/12/2016 Pt Lpv8386 Low Intensity - 1.5-2.0 08/12/2016 Pt Hin8239 Mod intensity - 2.0-3.0 08/12/2016 Pt Pmq1970 Hi intensity - 3.0-4.0 08/12/2016 Pt Rdf2240 PT 21.6 seconds 07/27/2016 Pt Tyv2400 INR 2.0 07/27/2016 Pt Zyv9226 Low Intensity - 1.5-2.0 07/27/2016 Pt Rrl5329 Mod intensity - 2.0-3.0 07/27/2016 Pt Vzl0430 Hi intensity - 3.0-4.0 07/27/2016 Pt Lpf4565 PT 26.0 seconds 06/15/2016 Pt Fts8036 INR 2.5 06/15/2016 Pt Aaa3655 Low Intensity - 1.5-2.0 06/15/2016 Pt Txj5954 Mod intensity - 2.0-3.0 06/15/2016 Pt Ish9909 Hi intensity - 3.0-4.0 06/15/2016 Pt Cmq2007 PT 18.8 seconds 06/01/2016 Pt Hyg7643 INR 1.7 06/01/2016 Pt Ovr2505 Low Intensity - 1.5-2.0 06/01/2016 Pt Nfq3944 Mod intensity - 2.0-3.0 06/01/2016 Pt Dkn9706 Hi intensity - 3.0-4.0 06/01/2016 Pt Upa6329 PT 20.8 seconds 05/12/2016 Pt Bna1705 INR 1.9 05/12/2016 Pt Ekk5940 Low Intensity - 1.5-2.0 05/12/2016 Pt Tlp4215 Mod intensity - 2.0-3.0 05/12/2016 Pt Bty5944 Hi intensity - 3.0-4.0 05/12/2016 Pt Ngs4638 PT 24.5 seconds 04/10/2016 Pt Cbg7042 INR 2.4 04/10/2016 Pt Lpu3516 Low Intensity - 1.5-2.0 04/10/2016 Pt Qrt5925 Mod intensity - 2.0-3.0 04/10/2016 Pt Qav3854 Hi intensity - 3.0-4.0 04/10/2016 Pt Jlk7057 PT 26.4 seconds 03/10/2016 Pt Ivw9925 INR 2.6 03/10/2016 Pt Asn3042 Low Intensity - 1.5-2.0 03/10/2016 Pt Osr5095 Mod intensity - 2.0-3.0 03/10/2016 Pt Oma7763 Hi intensity - 3.0-4.0 03/10/2016 Pt Gzo0006 PT 24.9 seconds 03/06/2016 Pt Mao0156 INR 2.4 03/06/2016 Pt Raj9979 Low Intensity - 1.5-2.0 03/06/2016 Pt Dzw0476 Mod intensity - 2.0-3.0 03/06/2016 Pt Vvs3421 Hi intensity - 3.0-4.0 03/06/2016 Pt Skp9466 PT 21.9 seconds 02/25/2016 Pt Bmo9258 INR 2.0 02/25/2016 Pt Bmj3060 Low Intensity - 1.5-2.0 02/25/2016 Pt Alc1588 Mod intensity - 2.0-3.0 02/25/2016 Pt Tcq4167 Hi intensity - 3.0-4.0 02/25/2016 Pt Iup3787 PT 21.8 seconds 02/21/2016 Pt Qcc8963 INR 2.0 02/21/2016 Pt Gpj0263 Low Intensity - 1.5-2.0 02/21/2016 Pt Jiq4843 Mod intensity - 2.0-3.0 02/21/2016 Pt Lij2768 Hi intensity - 3.0-4.0 02/21/2016 Culture Urine [id number] URI NE CULTURE SEE NOTES 02/20/2016 Culture Urine [id number] Con tinued Results 02/20/2016 Urine Culture Ucult [...] 29.2 pg 02/14/2016 Cbc With Differential Ord2 Howell% 9.3 % 02/14/2016 Cbc With Differential Ord2 [...] 2.55 K/ul 02/14/2016 Cbc With Differential Ord2 Howell ABS# 0.8 K/ul 02/14/2016 Cbc With Differential Ord2 Eos ABS# 0.4 K/ul 02/14/2016 Cbc With Differential Ord2 Baso ABS# 0.1 K/ul 02/14/2016 Tsh Ord6 hTSH II 0.80 uIU/mL 02/14/2016 Pt Tta9791 PT 27.1 seconds 02/14/2016 Pt Ywo6770 INR 2.7 02/14/2016 Pt Omz5306 Low Intensity - 1.5-2.0 02/14/2016 Pt Ejq1711 Mod intensity - 2.0-3.0 02/14/2016 Pt Dmf1392 Hi intensity - 3.0-4.0 02/14/2016 Free T4 Eoc437 FREE T4 1.87 ng/dL 02/14/2016 Comp Metabolic Ser166 NA 139 mEq/L 02/14/2016 Comp Metabolic Zhn492 K 3.8 mEq/L 02/14/2016 Comp Metabolic Bxa573 CL 103 mEq/L 02/14/2016 Comp Metabolic Kww391 CO2 27.0 mEq/L 02/14/2016 Comp Metabolic Zbq870 AN ION GAP 13 02/14/2016 Comp Metabolic Elm902 GL UCOSE 91 mg/dL 02/14/2016 Comp Metabolic Mhd588 Cr eat 1.0 mg/dL 02/14/2016 Comp Metabolic Vzt875 eG FR 58 ml/min/1.73m2 02/13 Comp Metabolic Miq612 BUN 16 mg/dL 02/14/2016 Comp Metabolic Mdr432 B/ C Ratio 16.2 Ratio 02/14/2016 Comp Metabolic Gko419 CA LCIUM 9.0 mg/dL 02/14/2016 Comp Metabolic Qhq337 AL K PHOS 88 U/L 02/14/2016 Comp Metabolic Yey980 T(SGOT) 17 U/L 02/14/2016 Comp Metabolic Jfj471 AL T(SGPT) 12 U/L 02/14/2016 Comp Metabolic Pdw790 BI LI T 0.6 mg/dL 02/14/2016 Comp Metabolic Zkc488 AL BUMIN 3.2 g/dL 02/14/2016 Comp Metabolic Oog838 TP RO 5.8 g/dL 02/14/2016 Comp Metabolic Web017 GL OB 2.6 g/dL 02/14/2016 Comp Metabolic Yee724 A/ G Ratio 1.3 Ratio 02/14/2016 Comp Metabolic Ulw590 Os mo 278 mOsmo 02/14/2016 Pt Iqh8800 PT 34.6 seconds 02/06/2016 Pt Pkw9904 INR 3.7 02/06/2016 Pt Dns7277 Low Intensity - 1.5-2.0 02/06/2016 Pt Vhp9298 Mod intensity - 2.0-3.0 02/06/2016 Pt Xxb5751 Hi intensity - 3.0-4.0 02/06/2016 Pt Yga0251 PT 33.3 seconds 01/23/2016 Pt Iry8394 INR 3.5 01/23/2016 Pt Tma5847 Low Intensity - 1.5-2.0 01/23/2016 Pt Gbo7993 Mod intensity - 2.0-3.0 01/23/2016 Pt Qnc7746 Hi intensity - 3.0-4.0 01/23/2016 Pt Psb0764 PT 30.5 seconds 12/31/2015 Pt Cob2635 INR 3.2 12/31/2015 Pt Hwe0434 Low Intensity - 1.5-2.0 12/31/2015 Pt Avb9838 Mod intensity - 2.0-3.0 12/31/2015 Pt Ijd6718 Hi intensity - 3.0-4.0 12/31/2015 Pt Aai2743 PT 35.6 seconds 12/25/2015 Pt Ruh7425 INR 3.9 12/25/2015 Pt Gzs5252 Low Intensity - 1.5-2.0 12/25/2015 Pt Anq0815 Mod intensity - 2.0-3.0 12/25/2015 Pt Lgd1047 Hi intensity - 3.0-4.0 12/25/2015 Pt Pcz7154 PT 30.8 seconds 11/21/2015 Pt Rov8629 INR 3.2 11/21/2015 Pt Gqq6553 Low Intensity - 1.5-2.0 11/21/2015 Pt Yze9063 Mod intensity - 2.0-3.0 11/21/2015 Pt Juj3783 Hi intensity - 3.0-4.0 11/21/2015 Uric Acid [...] 30.0 pg 11/20/2015 Cbc With Differential Ord2 Howell% 8.1 % 11/20/2015 Cbc With Differential Ord2 [...] 2.51 K/ul 11/20/2015 Cbc With Differential Ord2 [place]ell ABS# 0.9 K/ul 11/20/2015 Cbc With Differential Ord2 Eos ABS# 0.3 K/ul 11/20/2015 Cbc With Differential Ord2 Baso ABS# 0.0 K/ul 11/20/2015 Comp Metabolic Xbt607 NA 137 mEq/L 10/22/2015 Comp Metabolic Bkd524 K 3.9 mEq/L 10/22/2015 Comp Metabolic Gut663 CL 100 mEq/L 10/22/2015 Comp Metabolic Dou032 CO2 31.0 mEq/L 10/22/2015 Comp Metabolic Kth784 AN ION GAP 10 10/22/2015 Comp Metabolic Cci479 GL UCOSE 94 mg/dL 10/22/2015 Comp Metabolic Cfp591 Cr eat 1.0 mg/dL 10/22/2015 Comp Metabolic Aud284 eG FR 55 ml/min/1.73m2 10/21 Comp Metabolic Fyg268 BUN 19 mg/dL 10/22/2015 Comp Metabolic Mls064 B/ C Ratio 18.3 Ratio 10/22/2015 Comp Metabolic Hmu213 CA LCIUM 8.8 mg/dL 10/22/2015 Comp Metabolic Xuy009 AL K PHOS 83 U/L 10/22/2015 Comp Metabolic Tww658 T(SGOT) 15 U/L 10/22/2015 Comp Metabolic Aej465 AL T(SGPT) 13 U/L 10/22/2015 Comp Metabolic Nwy030 BI LI T 0.9 mg/dL 10/22/2015 Comp Metabolic Rpp989 AL BUMIN 2.8 g/dL 10/22/2015 Comp Metabolic Tso283 TP RO 5.4 g/dL 10/22/2015 Comp Metabolic Sqf062 GL OB 2.6 g/dL 10/22/2015 Comp Metabolic Bgc216 A/ G Ratio 1.1 Ratio 10/22/2015 Comp Metabolic Tbh366 Os mo 276 mOsmo 10/22/2015 Bili D Ord93 BILI D 0.1 mg/dL 10/22/2015 Bili D Ord93 BILI I 0.8 mg/dL 10/22/2015 Pt Pbu9446 PT 22.8 seconds 10/22/2015 Pt Bew8713 INR 2.1 10/22/2015 Pt Fpy7711 Low Intensity - 1.5-2.0 10/22/2015 Pt Hww2841 Mod intensity - 2.0-3.0 10/22/2015 Pt Rsl0791 Hi intensity - 3.0-4.0 10/22/2015 Pt Mly6228 PT 28.0 seconds 09/16/2015 Pt Fwi3089 INR 2.7 09/16/2015 Pt Vzo2890 Low Intensity - 1.5-2.0 09/16/2015 Pt Moc3584 Mod intensity - 2.0-3.0 09/16/2015 Pt Ent9104 Hi intensity - 3.0-4.0 09/16/2015 Tsh Ord6 hTSH II 1.40 uIU/mL 09/16/2015 Free T4 Dmw950 FREE T4 1.73 ng/dL 09/16/2015 Lipid Ord30 CHOL 169 mg/dL 09/16/2015 Lipid Ord30 HDL 66.0 mg/dl 09/16/2015 Lipid Ord30 TRIG 78 mg/dL 09/16/2015 Lipid Ord30 LDL 87 mg/dL 09/16/2015 Lipid Ord30 C/HDL 2.6 Ratio 09/16/2015 Pt Csr6149 PT 26.6 seconds 08/21/2015 Pt Equ7979 INR 2.6 08/21/2015 Pt Qxd3756 Low Intensity - 1.5-2.0 08/21/2015 Pt Pft1693 Mod intensity - 2.0-3.0 08/21/2015 Pt Smm6601 Hi intensity - 3.0-4.0 08/21/2015 Comp Metabolic Yod599 NA 141 mEq/L 08/08/2015 Comp Metabolic Idi936 K 3.3 mEq/L 08/08/2015 Comp Metabolic Ipp132 CL 102 mEq/L 08/08/2015 Comp Metabolic Cgz564 CO2 31.0 mEq/L 08/08/2015 Comp Metabolic Vhj797 AN ION GAP 11 08/08/2015 Comp Metabolic Eao070 GL UCOSE 83 mg/dL 08/08/2015 Comp Metabolic Ske805 Cr eat 1.0 mg/dL 08/08/2015 Comp Metabolic Fgt350 eG FR 55 ml/min/1.73m2 08/08 Comp Metabolic Ueb872 BUN 19 mg/dL 08/08/2015 Comp Metabolic Mpz732 B/ C Ratio 18.3 Ratio 08/08/2015 Comp Metabolic Tlq188 CA LCIUM 8.9 mg/dL 08/08/2015 Comp Metabolic Oyh860 AL K PHOS 84 U/L 08/08/2015 Comp Metabolic Wlh517 T(SGOT) 20 U/L 08/08/2015 Comp Metabolic Fos356 AL T(SGPT) 18 U/L 08/08/2015 Comp Metabolic Jms722 BI LI T 0.6 mg/dL 08/08/2015 Comp Metabolic Cxk264 AL BUMIN 3.3 g/dL 08/08/2015 Comp Metabolic Kqi134 TP RO 5.9 g/dL 08/08/2015 Comp Metabolic Iyd639 GL OB 2.6 g/dL 08/08/2015 Comp Metabolic Ccx934 A/ G Ratio 1.3 Ratio 08/08/2015 Comp Metabolic Apf364 Os mo 283 mOsmo 08/08/2015 Cbc With [...] 30.0 pg 08/08/2015 Cbc With Differential Ord2 Howell% 8.2 % 08/08/2015 Cbc With Differential Ord2 [...] 2.90 K/ul 08/08/2015 Cbc With Differential Ord2 Howell ABS# 0.9 K/ul 08/08/2015 Cbc With Differential [...] Ord93 BILI I 0.5 mg/dL 08/08/2015 Pt Skf1782 PT 31.8 seconds 08/05/2015 Pt Ysy7031 INR 3.2 08/05/2015 Pt Cvd9365 Low Intensity - 1.5-2.0 08/05/2015 Pt Ywf3481 Mod intensity - 2.0-3.0 08/05/2015 Pt Wdc5960 Hi intensity - 3.0-4.0 08/05/2015 Pt Wcy3625 PT 27.4 seconds 06/27/2015 Pt Vvc8801 INR 2.6 06/27/2015 Pt Chk7791 Low Intensity - 1.5-2.0 06/27/2015 Pt Czp6552 Mod intensity - 2.0-3.0 06/27/2015 Pt Icj7479 Hi intensity - 3.0-4.0 06/27/2015 Tsh Ord6 [...] Ord2 RDW 15.1 % 05/31/2015 Free T4 Ktx013 FREE T4 1.89 ng/dL 05/31/2015 Comp Metabolic Eck354 NA 140 mEq/L 05/31/2015 Comp Metabolic Fnh392 K 3.3 mEq/L 05/31/2015 Comp Metabolic Dko470 CL 99 mEq/L 05/31/2015 Comp Metabolic Aqa494 CO2 30.0 mEq/L 05/31/2015 Comp Metabolic Uqi474 AN ION GAP 14 05/31/2015 Comp Metabolic Wfp715 GL UCOSE 70 mg/dL 05/31/2015 Comp Metabolic Dvg127 Cr eat 1.0 mg/dL 05/31/2015 Comp Metabolic Fwb329 eG FR 55 ml/min/1.73m2 05/31 Comp Metabolic Neq976 BUN 23 mg/dL 05/31/2015 Comp Metabolic Ltx871 B/ C Ratio 22.1 Ratio 05/31/2015 Comp Metabolic Ldw950 CA LCIUM 8.9 mg/dL 05/31/2015 Comp Metabolic Klg671 AL K PHOS 86 U/L 05/31/2015 Comp Metabolic Hwz337 T(SGOT) 28 U/L 05/31/2015 Comp Metabolic Bip842 AL T(SGPT) 30 U/L 05/31/2015 Comp Metabolic Dee136 BI LI T 0.4 mg/dL 05/31/2015 Comp Metabolic Yad562 AL BUMIN 3.3 g/dL 05/31/2015 Comp Metabolic Tnk407 TP RO 6.0 g/dL 05/31/2015 Comp Metabolic Ekh510 GL OB 2.7 g/dL 05/31/2015 Comp Metabolic Shm239 A/ G Ratio 1.2 Ratio 05/31/2015 Comp Metabolic Tpi587 Os mo 282 mOsmo 05/31/2015 Pt Hwu9420 PT 23.3 seconds 04/15/2015 Pt Gjo7723 INR 2.2 04/15/2015 Pt Wys3657 Low Intensity - 1.5-2.0 04/15/2015 Pt Cuq4097 Mod intensity - 2.0-3.0 04/15/2015 Pt Rfl4016 Hi intensity - 3.0-4.0 04/15/2015 Pt Yed3934 PT 19.5 seconds 04/04/2015 Pt Cyr4739 INR 1.7 04/04/2015 Pt Waz2428 Low Intensity - 1.5-2.0 04/04/2015 Pt Eah3142 Mod intensity - 2.0-3.0 04/04/2015 Pt Flo7135 Hi intensity - 3.0-4.0 04/04/2015 Pt Hzi6912 PT 39.8 seconds 04/01/2015 Pt Cif5046 INR 4.3 04/01/2015 Pt Zmy8429 Low Intensity - 1.5-2.0 04/01/2015 Pt Pvx9374 Mod intensity - 2.0-3.0 04/01/2015 Pt Fkl8689 Hi intensity - 3.0-4.0 04/01/2015 Metabolic Ord15 [...] Metabolic Ord15 CALCIUM 8.7 mg/dL 02/28/2015 Pt Ndl1641 PT 31.4 seconds 02/28/2015 Pt Qso0126 INR 3.2 02/28/2015 Pt Tgr0350 Low Intensity - 1.5-2.0 02/28/2015 Pt Dfe8671 Mod intensity - 2.0-3.0 02/28/2015 Pt Yma9232 Hi intensity - 3.0-4.0 02/28/2015 Pt Muh1385 PT 23.2 seconds 01/18/2015 Pt Ndi6241 INR 2.1 01/18/2015 Pt Zja3573 Low Intensity - 1.5-2.0 01/18/2015 Pt Qsv1876 Mod intensity - 2.0-3.0 01/18/2015 Pt Peh7819 Hi intensity - 3.0-4.0 01/18/2015 Pt Rhe1600 PT 18.2 seconds 01/10/2015 Pt Hko2930 INR 1.6 01/10/2015 Pt Gms2825 Low Intensity - 1.5-2.0 01/10/2015 Pt Uig6332 Mod intensity - 2.0-3.0 01/10/2015 Pt Twg5087 Hi intensity - 3.0-4.0 01/10/2015 Review of Systems System Result Effective Dates Constitutional recent illness 09/27/2018 Constitutional No anorexia [...] neck 11/20/2014 None Procedures Procedure Codes Date ADMIN INFLUENZA VIRU S VAC CPT-4: G0008 03/24/2018 ADMIN PNEUMOCOCCAL V ACCINE SNOMED CT: 92958716 CPT-4: G0009 03/24/2018 FLU VACC PRSV FREE I NC ANTIG Formatting Model/CDA Sections, Assigned to/Dorothea Tan CPT-4: [id number] 03/24/2018 Pneumococcal Polysac charide Vaccine, 23-Valent, Ad CPT-4: 74293 03/24/2018 TRIAMCINOLONE ACET I [place] NOS CPT-4: J3301 06/15/2017 THER/PROPH/DIAG INJ SC/IM CPT-4: 98755 06/15/2017 ADMIN PNEUMOCOCCAL V ACCINE SNOMED CT: 16736415 CPT-4: G0009 03/16/2017 ADMIN INFLUENZA VIRU S VAC CPT-4: G0008 03/16/2017 FLU VAC NO PRSV 4 VA L 3 YRS+ CPT-4: 16827 03/16/2017 PNEUMOCOCCAL VACC [address]: 76907111 CPT-4: 63506 03/16/2017 URINALYSIS NONAUTO W /O SCOPE CPT-4: 76313 08/26/2016 THER/PROPH/DIAG INJ SC/IM CPT-4: 45869 07/22/2016 TRIAMCINOLONE ACET I [place] NOS CPT-4: J3301 07/22/2016 ROCEPHIN, PER 250 MG CPT-4: J0696 07/22/2016 TRIAMCINOLONE ACET I [place] NOS CPT-4: J3301 02/05/2015 Vital Signs Date Vital 09/27/2018 Blood Pressure 1: 128/74 Code: 8480-6 BMI: 32.4 Code: 03714-8 Heart Rate 1: 92 bpm Height: 5'7" SpO2: 97% Weight: 207 lbs 08/16/2018 Blood Pressure 1: 104/66 Code: 8480-6 BMI: 32.3 Code: 91454-8 Heart Rate 1: 94 bpm Height: 5'7" SpO2: 96% Weight: 206 lbs 07/11/2018 Blood Pressure 1: 102/68 Code: 8480-6 BMI: 34.5 Code: 42833-3 Heart Rate 1: 101 bpm Height: 5'7" SpO2: 98% Weight: 220 lbs 03/24/2018 Blood Pressure 1: 130/72 Code: 8480-6 BMI: 33.4 Code: 92211-1 Heart Rate 1: 82 bpm Height: 5'7" SpO2: 93% Weight: 213 lbs 11/18/2017 Blood Pressure 1: 128/70 Code: 8480-6 BMI: 33.6 Code: 40237-7 Heart Rate 1: 98 bpm Height: 5'7" SpO2: 97% Weight: 214 lbs 8 oz 09/30/2017 Blood Pressure 1: 100/50 Code: 8480-6 BMI: 34.0 Code: 96696-6 Heart Rate 1: 66 bpm Height: 5'7" SpO2: 96% Weight: 217 lbs 08/17/2017 Blood Pressure 1: 104/60 Code: 8480-6 BMI: 33.7 Code: 58788-5 Heart Rate 1: 99 bpm Height: 5'7" SpO2: 97% Weight: 215 lbs 06/15/2017 Blood Pressure 1: 120/64 Code: 8480-6 BMI: 33.5 Code: 81042-3 Heart Rate 1: 91 bpm Height: 5'7" SpO2: 94% Weight: 214 lbs 04/01/2017 Blood Pressure 1: 110/68 Code: 8480-6 BMI: 154.4 Code: 10205-7 Heart Rate 1: 66 bpm Height: 2'7" SpO2: 95% Weight: 211 lbs 03/16/2017 Blood Pressure 1: 130/72 Code: 8480-6 BMI: 33.0 Code: 43122-5 Heart Rate 1: 95 bpm Height: 5'7" SpO2: 97% Weight: 211 lbs 02/09/2017 Blood Pressure 1: 120/70 Code: 8480-6 BMI: 32.9 Code: 88885-3 Heart Rate 1: 78 bpm Height: 5'7" SpO2: 96% Weight: 210 lbs 10/13/2016 Blood Pressure 1: 118/76 Code: 8480-6 BMI: 32.6 Code: 75584-9 Heart Rate 1: 97 bpm Height: 5'7" SpO2: 98% Weight: 208 lbs 07/31/2016 Blood Pressure 1: 110/64 Code: 8480-6 BMI: 32.1 Code: 44006-9 Heart Rate 1: 79 bpm Height: 5'7" SpO2: 94% Weight: 205 lbs 07/22/2016 Blood Pressure 1: 108/74 Code: 8480-6 BMI: 32.1 Code: 51039-8 Heart Rate 1: 71 bpm Height: 5'7" SpO2: 97% Temperature: 36.9 (C ) / 98.4 (F) Weight: 205 lbs 05/01/2016 Blood Pressure 1: 120/72 Code: 8480-6 BMI: 32.7 Code: 44791-7 Heart Rate 1: 75 bpm Height: 5'7" SpO2: 94% Weight: 209 lbs 04/06/2016 Blood Pressure 1: 106/62 Code: 8480-6 BMI: 32.7 Code: 62813-9 Heart Rate 1: 83 bpm Height: 5'7" SpO2: 97% Weight: 209 lbs 03/06/2016 Blood Pressure 1: 112/68 Code: 8480-6 BMI: 32.7 Code: 64516-4 Heart Rate 1: 90 bpm Height: 5'7" SpO2: 97% Weight: 209 lbs 03/03/2016 Blood Pressure 1: 120/62 Code: 8480-6 BMI: 32.7 Code: 79229-6 Heart Rate 1: 92 bpm Height: 5'7" SpO2: 98% Weight: 209 lbs 02/07/2016 Blood Pressure 1: 110/64 Code: 8480-6 BMI: 32.7 Code: 06800-3 Heart Rate 1: 87 bpm Height: 5'7" SpO2: 97% Weight: 209 lbs 12/13/2015 Blood Pressure 1: 110/64 Code: 8480-6 BMI: 33.5 Code: 29451-6 Heart Rate 1: 90 bpm Height: 5'7" SpO2: 97% Weight: 214 lbs 12/03/2015 Blood Pressure 1: 132/76 Code: 8480-6 BMI: 33.4 Code: 83924-2 Heart Rate 1: 82 bpm Height: 5'7" SpO2: 99% Weight: 213 lbs 11/20/2015 Blood Pressure 1: 108/68 Code: 8480-6 BMI: 32.4 Code: 57197-4 Heart Rate 1: 77 bpm Height: 5'7" SpO2: 97% Weight: 207 lbs 09/17/2015 Blood Pressure 1: 122/76 Code: 8480-6 BMI: 33.0 Code: 57264-4 Heart Rate 1: 91 bpm Height: 5'7" SpO2: 97% Weight: 211 lbs 05/31/2015 Blood Pressure 1: 128/82 Code: 8480-6 BMI: 33.4 Code: 02832-9 Heart Rate 1: 98 bpm Height: 5'7" SpO2: 99% Weight: 213 lbs 02/05/2015 Blood Pressure 1: 128/80 Code: 8480-6 BMI: 32.6 Code: 64225-1 Heart Rate 1: 86 bpm Height: 5'7" SpO2: 97% Weight: 208 lbs 11/20/2014 Blood Pressure 1: 128/90 Code: 8480-6 BMI: 30.9 Code: 09729-4 Heart Rate 1: 94 bpm Height: 5'7" Weight: 197 lbs Functional Status No Functional Status data History of Present Illness Symptom Name Status Resu lt Effective Date Notes Quality chronic 09/27/2018 None Quality primary hypert [...] ongoing 11/20/2015 None Hospital Follow Up _ [facility] er: fall 09/17/2015 None Hospital Follow [...] Findings Denies fever 05/31/2015 None hypothyroid 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 02/05/2015 None hypothyroid Pertinent Findings coarse [...] Denies extremity weakness 11/20/2014 None hypothyroid 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 P ATIENT, LEVEL IV Diagnosis: Atrophy of thyroid (acquired)[ICD10: E03.4] Diagnosis: Essential (primary) hypertension[ICD10: I10] Diagnosis: Other allergic rhinitis[ICD10: J30.89] Diagnosis: Other skin changes[ICD10: R23.8] Diagnosis: Chronic atrial fibrillation[ICD10: I48.2] Diagnosis: [facility] (current) use of anticoagulants[ICD10: Z79.01] Valerie Pisano MD, [facility] CPT-4: 98117 09/27/2018 ([id number]) [id number] EST. P ATIENT, LEVEL IV Diagnosis: Essential (primary) hypertension[ICD10: I10] Diagnosis: Atrophy of thyroid (acquired)[ICD10: E03.4] Diagnosis: Sebaceous cyst[ICD10: L72.3] Diagnosis: Chronic atrial fibrillation[ICD10: I48.2] Diagnosis: [facility] (current) use of anticoagulants[ICD10: Z79.01] Valerei Pisano MD, C CPT-4: 63163 08/16/2018 ([id number]) 15039 EST. P ATIENT, LEVEL IV Diagnosis: Atrophy of thyroid (acquired)[ICD10: E03.4] Diagnosis: Essential (primary) hypertension[ICD10: I10] Diagnosis: Other fatigue[ICD10: R53.83] Diagnosis: Localized edema[ICD10: R60.0] Valerie Pisano MD, [facility] CPT-4: 06670 07/11/2018 ([id number]) [id number] EST. P ATIENT, LEVEL IV Diagnosis: Essential (primary) hypertension[ICD10: I10] Diagnosis: Atrophy of thyroid (acquired)[ICD10: E03.4] Diagnosis: Chronic atrial fibrillation[ICD10: I48.2] Valerie Pisano MD, C CPT-4: 67487 03/24/2018 ([id number]) 41281 EST. P ATIENT, LEVEL IV Diagnosis: Essential (primary) hypertension[ICD10: I10] Diagnosis: Atrophy of thyroid (acquired)[ICD10: E03.4] Diagnosis: Chronic atrial fibrillation[ICD10: I48.2] Valerie Pisano MD, C CPT-4: 32193 11/18/2017 [id number] EST. PATIENT, LEVEL IV Diagnosis: Localized edema[ICD10: R60.0] Roxie Pisano MD, [facility] CPT-4: 40201 09/30/2017 ([id number]) 98047 EST. P ATIENT, LEVEL III Diagnosis: Essential (primary) hypertension[ICD10: I10] Valerie Pisano MD, C CPT-4: 13487 08/17/2017 ([id number]) 68993 EST. P ATIENT, LEVEL IV Diagnosis: Essential (primary) hypertension[ICD10: I10] Diagnosis: Atrophy of thyroid (acquired)[ICD10: E03.4] Diagnosis: Chronic atrial fibrillation[ICD10: I48.2] Diagnosis: Cervicalgia[ICD10: M54.2] Diagnosis: Other muscle spasm[ICD10: M62.838] Valerie Pisano MD, [facility] CPT- 4: 74829 06/15/2017 [id number] EST. PATIENT, LEVEL III Diagnosis: Laceration without foreign body of other finger without damage to nail, initial encounter[ICD10: S61.218A] Roxie Pisano MD, [facility] CPT-4: 08377 04/01/2017 ([id number]) 34877 EST. 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 P ATIENT, LEVEL IV Diagnosis: Chronic atrial fibrillation[ICD10: I48.2] Diagnosis: Essential (primary) hypertension[ICD10: I10] Diagnosis: Other fatigue[ICD10: R53.83] Diagnosis: [facility] (current) use of anticoagulants[ICD10: Z79.01] Diagnosis: Atrophy of thyroid (acquired)[ICD10: E03.4] Valerie Pisano MD, [facility] CPT-4: 85097 02/09/2017 ([id number]) 35391 EST. 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 PATIENT, LEVEL III Diagnosis: Other acute sinusitis[ICD10: J01.80] Diagnosis: Other allergic rhinitis[ICD10: J30.89] Roxie Pisano MD, [facility] CPT-4: 16507 07/31/2016 ([id number]) 57832 EST. [facility], [facility] Diagnosis: Acute recurrent maxillary sinusitis[ICD10: J01.01] Valerie Pisano MD, [facility] CPT-4: 43377 07/22/2016 26128 EST. PATIENT, LEVEL IV Diagnosis: Essential (primary) hypertension[ICD10: I10] Diagnosis: Other allergic rhinitis[ICD10: J30.89] Diagnosis: Localized edema[ICD10: R60.0] Roxie Pisano MD, [facility] CPT-4: 99980 05/01/2016 [id number] EST. PATIENT, LEVEL III Diagnosis: Cellulitis of left lower limb[ICD10: L03.116] Diagnosis: Localized edema[ICD10: R60.0] Roxie Pisano MD, [facility] CPT-4: 95364 04/06/2016 ([id number]) Miscellaneou s no charge Diagnosis: Cellulitis of left lower limb[ICD10: L03.116] Diagnosis: Localized edema[ICD10: R60.0] Roxie Pisano MD, [facility] CPT-4: 56739 03/10/2016 ([id number]) Miscellaneou s no charge Diagnosis: Cellulitis of left lower limb[ICD10: L03.116] Roxie Pisano MD, [facility] CPT-4: 91095 03/06/2016 45611 EST. PATIENT, LEVEL IV Diagnosis: Cellulitis of left lower limb[ICD10: L03.116] Diagnosis: Localized edema[ICD10: R60.0] Roxie Pisano MD, [facility] CPT-4: 11283 03/03/2016 ([id number]) 58213 EST. 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 P ATIENT, LEVEL III Diagnosis: Iliotibial band syndrome, right leg[ICD10: M76.31] Diagnosis: Localized edema[ICD10: R60.0] Brielle Pisano MD, [facility] CPT- 4: 09412 12/13/2015 ([id number]) 36526 EST. P ATIENT, LEVEL III Diagnosis: Localized edema[ICD10: R60.0] Diagnosis: Essential (primary) hypertension[ICD10: I10] Brielle Pisano MD, [facility] CPT-4: 59497 12/03/2015 ([id number]) 12281 EST. 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 PATIENT, LEVEL IV Diagnosis: Essential (primary) hypertension[ICD10: I10] Diagnosis: [facility] (current) use of anticoagulants[ICD10: Z79.01] Diagnosis: Muscle spasm of back[ICD10: M62.830] Roxie Pisano MD, [facility] CPT- 4: 99141 09/17/2015 ([id number]) 76883 EST. P ATIENT, LEVEL IV Diagnosis: Localized edema[ICD10: R60.0] Diagnosis: Other specified hypothyroidism[ICD10: E03.8] Diagnosis: Essential (primary) hypertension[ICD10: I10] Brielle Pisano MD, [facility] CPT-4: 74986 05/31/2015 ([id number]) 24748 EST. P ATIENT, LEVEL III Diagnosis: ALLERGIC RHINITIS[ICD9: 477.9] Diagnosis: ESSENTIAL HYPERTENSION[ICD9: 401.9] Brielle Pisano MD, [facility] CPT-4: 85352 02/05/2015 ([id number]) OFFICE VISI T, NEW - LEVEL 4 Diagnosis: ESSENTIAL HYPERTENSION[ICD9: 401.9] Diagnosis: HYPOTHYROIDISM[ICD9: 244.9] Diagnosis: ACTINIC KERATOSIS[ICD9: 702.0] Valerie Pisano MD, [facility] CPT-4: 30088 11/20/2014 Plan of Care Planned Activity Notes [...] coumadin dose is as follows: coumadin 5mg thursday, wednesday and 4mg other days of the [...] Hernandez. 09/27/2018 Appointment: [phone] (15 min) Moderate 09/27/2018 Patient Education: Patient [...] 08/16/2018 Appointment: Valerie Pisano WPtel: [phone] [facility] (15 min) Moderate 08/16/2018 Patient Education: Patient Medication Summary Completed 08/16/2018 Patient Education: Hypertension Completed 08/16/2018 Patient Education: Patient Medication Summary Completed 07/29/2018 Appointment: Brielle Cavazos WPtel: [phone] [phone] (15 min) Moderate 07/12/2018 Visit Plan: [...] 07/11/2018 Appointment: Valerie Pisano WPtel: [phone] [facility] (15 min) Moderate 07/11/2018 Patient Education: Patient [...] 03/24/2018 Appointment: Valerie Pisano WPtel: [phone] [facility] (15 min) Moderate 03/24/2018 Patient Education: Patient Medication Summary Completed 03/24/2018 Patient Education: Hypertension Completed 03/24/2018 Visit Plan: Hypertension - sana gonzalezfedestephen - [...] of control. 11/18/2017 Appointment: Valerie Pisano WPtel: [address] [place], [place] [phone] (15 min) Moderate 11/18/2017 Patient Education: Patient Medication Summary Completed 11/18/2017 Referral: [facility] WPtel: 1 [facility]66[facility] Pt notified [...] Boots 09/30/2017 Appointment: [facility]ares [facility]el[phone] (30 min) Complex 09/30/2017 Patient Education: Patient Medication Summary Completed 09/30/2017 Care Plan: Referral Order SNOMED-CT : [id number] Pending 09/30/2017 Visit Plan: Hypertension - well [...] time. 08/17/2017 Appointment: Valerie Pisano WPtel: [phone] [place] physical therapy - will refer to [facility]. RX for voltaren to neck muscles. allergies - kenalog 40mg im bristol myeres squibb - lot # [id number] expires september 2018 06/15/2017 Visit Plan: Hypertension [...] physical therapy - will refer to [facility]. RX for voltaren to neck muscles. 06/15/2017 Appointment: Valerie Pisano WPtel: [phone] [facility] (15 min) Moderate 06/15/2017 Patient Education: Patient Medication Summary Completed 06/15/2017 Care Plan: Referral Order SNOMED-CT : [id number] Pending 06/15/2017 Appointment: Nurse Visit 04/05/2017 Appointment: [...] booster. 04/01/2017 Appointment: Roxie Cazares WPtel: [phone] [phone] (15 min) Moderate 04/01/2017 Patient Education: [...] today 03/16/2017 Appointment: [facility]el[phone] ([facility] [...] spray. 02/09/2017 Appointment: [facility]el[phone] ([facility] [...] nystatin 10/13/2016 Appointment: Valerie Pisano WPtel: [phone] [facility] (15 min) Moderate 10/13/2016 Patient Education: Patient Medication Summary Completed 10/13/2016 Patient Education: Obesity Completed 10/13/2016 Patient Education: Hypertension Completed 10/13/2016 Care Plan: Urine Culture Pending 08/31/2016 Appointment: Roxie Cazares WPtel: [phone] [facility] Lab Draw 08/27/2016 Appointment: Nurse Visit [...] allergy spray. 07/31/2016 Appointment: Brielle Cavazos WPtel: [phone] [phone] [place] (30 min) Complex 07/31/2016 Patient Education: Patient Medication Summary Completed 07/31/2016 Patient Education: Obesity Completed 07/31/2016 Visit Plan: Sinusitis - Pt has acut e infection - pain in face, maxillary region, Pt informed to use decongestant, RX given to patient, sinus rinses also recommended. Call if symptoms do not show improvement. 07/22/2016 Appointment: Valerie Pisano WPtel: [phone] [facility] (15 min) Moderate 07/22/2016 Patient Education: Patient [...] edema. 05/01/2016 Appointment: Brielle Cavazos WPtel: [phone] [phone] (30 min) Complex 05/01/2016 Patient Education: [...] peripheral edema. 04/06/2016 Appointment: Roxie Cazares WPtel: [phone] (30 min) Complex 04/06/2016 Patient Education: Patient Medication Summary Completed 04/06/2016 Patient Education: Obesity Completed 04/06/2016 Visit Plan: left foot - improved - pt finished with antibiotics - continue to monitor - notify clinic with any concerns. Repeat INR today. 03/10/2016 Appointment: Brielle Cavazos WPtel: [phone] (30 min) Complex 03/10/2016 Patient Education: Patient Medication Summary Completed 03/10/2016 Visit Plan: Cellulitis - continue w ith oral antibiotics as previously directed, return to clinic as previously directed, call for acute change in symptoms, worsening redness, warmth, discharge. 03/06/2016 Appointment: Brielle Cavazos WPtel: [phone] (15 min) Moderate 03/06/2016 Patient Education: Patient Medication Summary Completed 03/06/2016 Patient Education: Obesity Completed 03/06/2016 Visit Plan: Cellulitis - continue w ith oral antibiotics as previously directed, return to clinic as previously directed, call for acute change in symptoms, worsening redness, warmth, discharge. 03/03/2016 Appointment: Brielle Cavazos WPtel: [phone] (15 min) Moderate 03/03/2016 Patient Education: [...] and 3.5. 02/07/2016 Appointment: Brielle Cavazos WPtel: [phone] (30 min) Complex 02/07/2016 Patient Education: Patient Medication Summary Completed 02/07/2016 Patient Education: Obesity Completed 02/07/2016 Patient Education: Hypertension Completed 02/07/2016 Appointment: Brielle Cavazos WPtel: [phone] [phone] (30 min) Complex 02/04/2016 Visit Plan: [...] edema. 12/13/2015 Appointment: Brielle Cavazos WPtel: [phone] [phone] (15 min) Moderate 12/13/2015 Patient Education: [...] home. 12/03/2015 Appointment: Brielle Cavazos WPtel: [phone] [phone] (30 min) Complex 12/03/2015 Patient Education: [...] Hypertension Completed 02/05/2015 Appointment: Valerie Pisano WPtel: [facility] (15 min) Moderate 01/29/2015 Visit Plan: [...] control. 11/20/2014 Appointment: Val[facility]isano [facility]Ptel: [phone] [place] ([place] New Patient 11/20/2014 Patient Education: Patient Medication Summary Completed 11/20/2014 Patient Education: Hypertension Completed 11/20/2014 Patient Education: Patient Medication Summary Completed 10/19/2014 Referral: [facility] WPtel: Referral Appointment Requested Referral: [facility]el[facility] [place] Referral Appointment Confirmed Instructions Comment get blood work one w [place]aver before next appt - fasting labs Decrease [...] for tetanus booster. . left foot - [facility] ed - pt finished with antibiotics - [...] in blood pressure readings at home. . Edema - pt has bee n [...] supportive care at this time. 1 pill mon/wed/wed, 1/2 pill tues/thurs/sat/sun take - This is [...] spray in the nasal steroid allergy spray. check coumadin level on wednesday Nasal spray- [...] physical therapy - will refer to [facility]. RX for voltaren to neck muscles. allergies - kenalog 40mg im bristol myeres squibb - lot # [id number] expires september 2018 . Hypertension - wel [...] physical therapy - will refer to [facility]. RX for voltaren [...] elevated - decrease coumadin to 4mg daily. Increase Lasix to tw ice a day [...]
--- OUTSIDE RECORDS SUMMARY | 2019-09-12 11:28 | XMS REPORT | CCD ---
Author Author Clara Pisano Organization [facility] Address [address] [place] [address] Phone Care Team Providers Care Bottle Booth Attendant Name Role Phone PP Unavailable CCM Unavailable Summary Purpose Interface Exchange Insurance Providers Payer name Policy type / Coverage type Covered democrat ID Effective Begin Date Effective End Date WPS Medicare Part B Medicare Part B [id number] 2018 Unknown [employer] Medicare Part B [id number] Unknown Family history Sister Diagnosis Age At Onset defect Unknown Breast cancer Unknown Daughter Diagnosis Age At Onset Breast cancer Unknown Mother Diagnosis Age At Onset No Family Disease Entered N/A Social History Social History Element Codes Description Effective Dates Marital status Unknown M arried Lane 11/20/2014 Number of children Unknown 6 11/20/2014 Employment Unknown Retir ed 11/20/[address]: 6433716 Quit over 10 years ago 1963 11/20/2014 [...] 401.9 ICD-10: 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 TAKE ON AN EMPTY STOMACH 08/04/2018 04/30/2019 Active meclizine 25 mg tablet RxNorm: 352736 1 Tablet(s) PO TID as needed Dizziness 07/22/2018 No Stop Date Active meclizine 25 mg tablet RxNorm: 382911 1 Tablet(s) PO TID as needed Dizziness 07/19/2018 07/21/2018 In active furosemide 40 mg tablet RxNorm: 218858 1 Tablet(s) BID take 1.5 tabs twice a da y x 7 days then 1 pill daily thereafter 07/11/2018 02/05/2019 Active Coumadin 4 mg tablet RxNorm: 007946 1 Tablet(s) PO daily except 1.5 pills on WEDNESDAY AND Wednesday07/11/2018 08/15/2018 Inactive this is an update to her RX - she will let you know when she needs refill warfarin 5 mg tablet RxNorm: 229101 Tablet(s) TAKE ONE TABLET BY MOUTH DAILY EXCEPT / TAKE 4 MG 04/06/2018 08/22/2019 Active diltiazem 60 mg tablet RxNorm: 664001 1/2 Tablet(s) PO QID 03/24/2018 No Stop Date Active levothyroxine 125 mc g tablet RxNorm: 989398 TAKE ONE TABLET BY [facility] DAILY ON WEDNESDAY, WED, AND WEDNESDAY, AND 1/2 TABLET ON , , WED AND WEDNESDAY. TAKE ON AN EMPTY STOMACH 02/02/2018 07/31/2018 Inactive Coumadin 4 mg tablet RxNorm: 223209 TAKE ONE TABLET BY MOUTH DAILY ON AND Wednesday10/14/2017 07/10/2018 Inactive nystatin 100,000 uni t/gram topical cream RxNorm: 586374 1 Application TOP TID 08/17/2017 No Stop Date Active Voltaren 1 % topical gel RxNorm: 192237 2 Gram(s) TOP TID luiz ly to shoulder and neck 08/17/2017 No Stop Date Active triamcinolone aceton sreekanth 0.025 % topical cream RxNorm: 2737562 1 Application TOP BI D 08/17/2017 08/15/2018 In active levothyroxine 125 mc g tablet RxNorm: 414599 1 Tablet(s) UD 1 pill wed/wed/wed, 1/2 pill //wed/wed take ON AN EMPTY STOMACH 08/05/2017 02/01/2018 Inactive Coumadin 4 mg tablet RxNorm: 632375 1 Tablet(s) PO Wed/07/29/2017 10/13/2017 Inactive warfarin 5 mg tablet RxNorm: 511377 TAKE 1 AND 1/2 TABLETS BY MOUTH ON AND WEDNESDAY. TAKE ONLY 1 TABLET BY MOUTH ALL OTHER DAYS OF THE WEEK 07/12/2017 04/05/2018 In active furosemide 40 mg tablet RxNorm: 700123 Tablet(s) BID TAKE ONE TABLET BY MOUTH D AILY 06/15/2017 07/10/2018 Inactive Voltaren 1 % topical gel RxNorm: 428524 2 Gram(s) TOP TID luiz ly to shoulder and neck 06/15/2017 08/16/2017 Inactive Keflex 500 mg capsule RxNorm: 566307 1 Capsule(s) PO TID 04/01/2017 04/07/2017 Inactive furosemide 40 mg tablet RxNorm: 271131 TAKE ONE TABLET BY MOUTH DAILY 03/18/2017 06/14/2017 In active Claritin-D 12 Hour 5 mg-120 mg tablet,extended release RxNorm: 2096983 1 Tablet(s) PO BID 03/16/2017 05/14/2017 Inactive Lipitor 20 mg tablet RxNorm: 096237 1 Tablet(s) PO daily 02/09/2017 03/10/2017 Inactive lisinopril 2.5 mg ta blet RxNorm: 428352 1 Tablet(s) PO daily 02/09/2017 03/10/2017 Inactive Nasonex 50 mcg/actua tion [place] RxNorm: 3460697 1 [place] NASAL BID 02/09/2017 09/06/2017 Inactive levothyroxine 125 mc g tablet RxNorm: 900822 1 Tablet(s) UD 1 pill wed/wed/wed, 1/2 pill //wed/sun take ON AN EMPTY STOMACH 02/09/2017 08/04/2017 Inactive fluorouracil 5 % top ical cream RxNorm: 241791 1 Application TOP BID 02/09/2017 02/18/2017 Inactive potassium chloride E R 20 mEq tablet,extended release RxNorm: 724813 Tablet(s) TAKE ONE TABLET BY MOUTH DAILY 02/08/2017 02/02/2018 Inactive warfarin 5 mg tablet RxNorm: 281031 TAKE 1 AND 1/2 TABLETS BY MOUTH ON AND WEDNESDAY. TAKE ONLY 1 TABLET BY MOUTH ALL OTHER DAYS OF THE WEEK 12/14/2016 05/30/2017 In active potassium chloride E R 20 mEq tablet,extended release RxNorm: 264109 TAKE ONE TABLET BY MOUTH DAILY 10/29/2016 01/26/2017 Inactive warfarin 5 mg tablet RxNorm: 701089 TAKE 1 AND 1/2 TABLETS BY MOUTH ON AND WEDNESDAY. TAKE ONLY 1 TABLET BY MOUTH ALL OTHER DAYS OF THE WEEK 10/27/2016 12/13/2016 In active nystatin 100,000 uni t/gram topical cream RxNorm: 444244 1 Application TOP TID 10/13/2016 08/16/2017 In active nitrofurantoin 50 mg capsule RxNorm: 931735 1 Capsule(s) PO BID 09/04/2016 09/03/2016 Inactive nitrofurantoin macro crystal 50 mg capsule RxNorm: 218652 1 Capsule(s) PO BID 09/04/2016 09/10/2016 In active Cipro 500 mg tablet RxNorm: 675745 1 Tablet(s) PO BID 08/26/2016 10/12/2016 Inactive Zyrtec 10 mg tablet RxNorm: 7464759 1 Tablet(s) PO daily 07/31/2016 08/29/2016 Inactive prednisone 20 mg tablet RxNorm: 822916 2 Tablet(s) PO daily 07/31/2016 08/02/2016 Inactive Kenalog 40 mg/mL zohra pension for injection RxNorm: 7125306 Milliliter(s) Inj 07/22/2016 07/22/2016 In active ceftriaxone 500 mg s olution for injection RxNorm: 5138241 Inj 07/22/2016 07/22/2016 Inactive Flonase Allergy Reli ef 50 mcg/actuation nasal spray,suspension RxNorm: 5337030 1 [place] NASAL BID 07/22/2016 08/20/2016 Inactive azithromycin 250 mg tablet RxNorm: 927709 2 Tablet(s) PO on day #1, then 1 pill daily x 4 days 07/22/2016 10/12/2016 Inactive warfarin 5 mg tablet RxNorm: 758439 TAKE 1 AND 1/2 TABLETS BY MOUTH ON AND WEDNESDAY. TAKE ONLY 1 TABLET BY MOUTH ALL OTHER DAYS OF THE WEEK 07/09/2016 09/30/2016 In active levothyroxine 125 mc g tablet RxNorm: 749954 Tablet(s) TAKE ONE TA BLET BY MOUTH DAILY ON AN EMPTY STOMACH 06/23/2016 02/08/2017 Inactive levothyroxine 125 mc g tablet RxNorm: 343614 TAKE ONE TABLET BY [facility] DAILY ON AN EMPTY STOMACH 06/23/2016 06/22/2016 Inactive levothyroxine 125 mc g tablet RxNorm: 469557 TAKE ONE TABLET BY [facility] DAILY ON AN EMPTY STOMACH 06/23/2016 08/04/2017 Inactive cetirizine 10 mg tablet RxNorm: 9098490 TAKE ONE TABLET BY MOUTH DAILY 06/16/2016 10/13/2016 In active furosemide 40 mg tablet RxNorm: 983241 Tablet(s) TAKE ONE TABLET BY MOUTH DAILY 06/05/2016 12/01/2016 In active cetirizine 10 mg tablet RxNorm: 4214739 1 Tablet(s) PO daily 05/01/2016 05/30/2016 Inactive Levaquin 250 mg tablet RxNorm: 425120 Tablet(s) PO 2 pills day one and 1 pill day 2-7 04/06/2016 07/21/2016 Inactive warfarin 5 mg tablet RxNorm: 860597 Tablet(s) 1/2 TABLETS BY MOUTH ON AND WEDNESDAY. TAKE ONLY 1 TABLET BY MOUTH ALL OTHER DAYS OF THE WEEK 03/18/2016 07/07/2016 In active triamcinolone aceton sreekanth 0.025 % topical cream RxNorm: 0713093 1 Application TOP BI D 03/10/2016 08/16/2017 In active potassium chloride E R 20 mEq tablet,extended release RxNorm: 680633 1 Tablet(s) PO daily 03/04/2016 06/01/2016 Inactive Levaquin 250 mg tablet RxNorm: 010735 Tablet(s) PO 2 pills day one and 1 pill day 2-7 03/04/2016 04/05/2016 Inactive Levaquin 250 mg tablet RxNorm: 197273 Tablet(s) PO 2 pills day one and 1 pill day 2-7 03/03/2016 03/03/2016 Inactive potassium chloride E R 20 mEq tablet,extended release RxNorm: 589768 1 Tablet(s) PO daily 03/03/2016 03/03/2016 Inactive Cipro 500 mg tablet RxNorm: 340616 1 Tablet(s) PO BID 02/20/2016 07/21/2016 Inactive Cipro 500 mg tablet RxNorm: 964673 1 Tablet(s) PO BID 02/20/2016 02/19/2016 Inactive furosemide 40 mg tablet RxNorm: 732341 TAKE ONE TABLET BY MOUTH DAILY 01/27/2016 01/26/2016 In active warfarin 5 mg tablet RxNorm: 633494 TAKE 1 AND 1/2 TABLETS BY MOUTH ON AND WEDNESDAY. TAKE ONLY 1 TABLET BY MOUTH ALL OTHER DAYS OF THE WEEK 01/27/2016 01/26/2016 In active furosemide 40 mg tablet RxNorm: 550503 TAKE ONE TABLET BY MOUTH DAILY 01/27/2016 06/04/2016 In active warfarin 5 mg tablet RxNorm: 645293 TAKE 1 AND 1/2 TABLETS BY MOUTH ON AND WEDNESDAY. TAKE ONLY 1 TABLET BY MOUTH ALL OTHER DAYS OF THE WEEK 01/27/2016 03/17/2016 In active potassium chloride E R 20 mEq tablet,extended release RxNorm: 842339 1 Tablet(s) PO daily 11/20/2015 03/02/2016 Inactive furosemide 40 mg tablet RxNorm: 783856 TAKE ONE TABLET BY MOUTH DAILY 11/12/2015 01/26/2016 In active Zovirax 5 % topical cream RxNorm: 048865 TOP QID 0 09/24/2015 09/23/2015 Inactive Zovirax 5 % topical cream RxNorm: 679039 TOP QID 0 09/24/2015 11/19/2015 Inactive nystatin 100,000 uni t/gram topical cream RxNorm: 625288 1 Application TOP TID 09/17/2015 10/12/2016 In active warfarin 5 mg tablet RxNorm: 270118 TAKE 1 AND 1/2 TABLETS BY MOUTH ON AND WEDNESDAY. TAKE ONLY 1 TABLET BY MOUTH ALL OTHER DAYS OF THE WEEK 08/19/2015 01/05/2016 In active loratadine 10 mg tablet RxNorm: 539437 1 Tablet(s) PO daily 07/30/2015 07/23/2016 Inactive loratadine 10 mg tablet RxNorm: 907851 1 Tablet(s) PO daily 07/30/2015 07/29/2015 Inactive furosemide 40 mg tablet RxNorm: 321907 TAKE ONE TABLET BY MOUTH DAILY 06/24/2015 11/11/2015 In active levothyroxine 125 mc g tablet RxNorm: 317109 1 Tablet(s) PO daily 05/31/2015 05/24/2016 Inactive furosemide 40 mg tablet RxNorm: 942548 1 Tablet(s) PO daily 04/05/2015 06/23/2015 Inactive warfarin 5 mg tablet RxNorm: 318426 TAKE 1 AND 1/2 TABLETS BY MOUTH ON AND WEDNESDAY. TAKE ONLY 1 TABLET BY MOUTH ALL OTHER DAYS OF THE WEEK 02/12/2015 07/29/2015 In active Flonase Allergy Reli ef 50 mcg/actuation nasal spray,suspension RxNorm: 2 [place] NASAL daily 02/05/2015 03/06/2015 Inactive Kenalog 40 mg/mL zohra pension for injection RxNorm: 3021826 Milliliter(s) Inj 02/05/2015 02/05/2015 In active warfarin 5 mg tablet RxNorm: 020738 Take 7.5mg (1 1/2 tablets) Wednesday and and 1 Tablet(s) PO (5mg) all other days 01/11/2015 02/09/2015 Inactive levothyroxine 125 mc g tablet RxNorm: 454009 1 Tablet(s) PO every other day 01/01/2015 05/30/2015 In active alternate with 150 levothyroxine 150 mc g tablet RxNorm: 018387 1 Tablet(s) PO every other day 01/01/2015 05/30/2015 In active alternate with 125 loratadine 10 mg tablet RxNorm: 220229 Tablet(s) PO as needed No Start Date Active Fish Oil 1,000 mg ca psule RxNorm: 1 Capsule(s) PO TID No Start Date Active magnesium 250 mg tablet RxNorm: 1 Tablet(s) PO daily No Start Date Active Vitamin D3 2,000 uni t tablet RxNorm: 566767 2 Tablet(s) PO daily No Start Date Active Fosamax 35 mg tablet RxNorm: 465009 1 Tablet(s) PO QW No Start Date Active levothyroxine 125 mc g tablet RxNorm: 576677 1 Tablet(s) PO daily No Start Date 12/31/2014 Inactive levothyroxine 150 mc g tablet RxNorm: 834503 1 Tablet(s) PO daily No Start Date 12/31/2014 Inactive diltiazem 60 mg tablet RxNorm: 335053 1 Tablet(s) PO QID No Start Date 03/23/2018 Inactive meclizine 25 mg tablet RxNorm: 233508 1 Tablet(s) PO TID as needed Dizziness No Start Date 07/18/2018 Inactive furosemide 40 mg tablet RxNorm: 488319 1 Tablet(s) PO daily No Start Date 04/04/2015 Inactive potassium chloride RxNorm: miscellaneous No Start Date 11/19/2015 Inactive Vitamin D2 oral RxNorm: 4018 oral No Start Date 05/31/2015 Inactive warfarin 5 mg tablet RxNorm: 458247 1 Tablet(s) PO daily No Start Date 01/10/2015 Inactive Coumadin 4 mg tablet RxNorm: 206023 1 Tablet(s) PO Wed/ No Start Date 07/28/2017 Inactive Medication Administered Medication Codes Instruc tions Start Date Status ceftriaxone 500 mg solution for injection RxNorm: 8878380 07/22/2016 No longer A ctive Kenalog 40 mg/mL suspension for injection RxNorm: 0164377 Milliliter 07/22/2016 No longer Active Kenalog 40 mg/mL suspension for injection RxNorm: 3399575 Milliliter 02/05/2015 No longer Active Immunizations Vaccine [...] 244.9 11/20/2014 ACTINIC KERATOSIS ICD-9: 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 11/20/2014 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 ICD-9: V58.61 [...] Code Item Item Code Result Date Pt Sny6045 PT 19.6 seconds 09/19/2018 Pt Umo4181 INR 1.7 09/19/2018 Pt Xhi8169 Low Intensity - 1.5-2.0 09/19/2018 Pt Zaq9438 Mod intensity - 2.0-3.0 09/19/2018 Pt Rob7896 Hi intensity - 3.0-4.0 09/19/2018 Pt Vrt4563 PT 16.8 seconds 09/12/2018 Pt Ypy6329 INR 1.4 09/12/2018 Pt Eyh1030 Low Intensity - 1.5-2.0 09/12/2018 Pt Zkv6720 Mod intensity - 2.0-3.0 09/12/2018 Pt Rxm6502 Hi intensity - 3.0-4.0 09/12/2018 Pt Sgi4571 PT 13.1 seconds 09/07/2018 Pt Idf0387 INR 1.0 09/07/2018 Pt Pfl1535 Low Intensity - 1.5-2.0 09/07/2018 Pt Zbj6088 Mod intensity - 2.0-3.0 09/07/2018 Pt Tcb4863 Hi intensity - 3.0-4.0 09/07/2018 Pt Gal3569 PT 24.1 seconds 08/23/2018 Pt Myk2433 INR 2.2 08/23/2018 Pt Kaz4795 Low Intensity - 1.5-2.0 08/23/2018 Pt Nrk2847 Mod intensity - 2.0-3.0 08/23/2018 Pt Buh1546 Hi intensity - 3.0-4.0 08/23/2018 Pt Nss5911 PT 30.9 seconds 08/16/2018 Pt Nbp2708 INR 3.0 08/16/2018 Pt Gke0909 Low Intensity - 1.5-2.0 08/16/2018 Pt Vrk4916 Mod intensity - 2.0-3.0 08/16/2018 Pt Sje9329 Hi intensity - 3.0-4.0 08/16/2018 Pt Acx4549 PT 29.5 seconds 08/01/2018 Pt Axw8373 INR 2.8 08/01/2018 Pt Vsp8060 Low Intensity - 1.5-2.0 08/01/2018 Pt Uzr2705 Mod intensity - 2.0-3.0 08/01/2018 Pt Odq7638 Hi intensity - 3.0-4.0 08/01/2018 Pt Epg8537 PT 24.2 seconds 07/25/2018 Pt Ikx2799 INR 2.2 07/25/2018 Pt Bqw5564 Low Intensity - 1.5-2.0 07/25/2018 Pt Jee4106 Mod intensity - 2.0-3.0 07/25/2018 Pt Hic8149 Hi intensity - 3.0-4.0 07/25/2018 Pt Gio5094 PT 38.6 seconds 07/19/2018 Pt Vpm0259 INR 4.0 07/19/2018 Pt Xhr6949 Low Intensity - 1.5-2.0 07/19/2018 Pt Ucz5489 Mod intensity - 2.0-3.0 07/19/2018 Pt Unw8027 Hi intensity - 3.0-4.0 07/19/2018 Pt Xvl3205 PT 25.7 seconds 07/11/2018 Pt Ouh7479 INR 2.4 07/11/2018 Pt Qrk9820 Low Intensity - 1.5-2.0 07/11/2018 Pt Yxn6028 Mod intensity - 2.0-3.0 07/11/2018 Pt Rnc8912 Hi intensity - 3.0-4.0 07/11/2018 Pt Ltd5654 PT 18.5 seconds 07/08/2018 Pt Hla4609 INR 1.6 07/08/2018 Pt Mrm1338 Low Intensity - 1.5-2.0 07/08/2018 Pt Tls4673 Mod intensity - 2.0-3.0 07/08/2018 Pt Mda4565 Hi intensity - 3.0-4.0 07/08/2018 Pt Ajf7183 PT 27.3 seconds 06/29/2018 Pt Sbf5847 INR 2.6 06/29/2018 Pt Nuj9739 Low Intensity - 1.5-2.0 06/29/2018 Pt Wcc1936 Mod intensity - 2.0-3.0 06/29/2018 Pt Djt1318 Hi intensity - 3.0-4.0 06/29/2018 Pt Qmd1615 PT 24.0 seconds 05/26/2018 Pt Bru0721 INR 2.2 05/26/2018 Pt Kzj2359 Low Intensity - 1.5-2.0 05/26/2018 Pt Jmo1738 Mod intensity - 2.0-3.0 05/26/2018 Pt Plh2271 Hi intensity - 3.0-4.0 05/26/2018 Tsh Ord6 [...] 29.6 pg 03/25/2018 Cbc With Differential Ord2 [place]% 9.5 % 03/25/2018 Cbc With Differential Ord2 [...] 2.19 K/ul 03/25/2018 Cbc With Differential Ord2 [place] ABS# 0.8 K/ul 03/25/2018 Cbc With Differential Ord2 Eos ABS# 0.3 K/ul 03/25/2018 Cbc With Differential Ord2 Baso ABS# 0.0 K/ul 03/25/2018 Lipid Ord30 CHOL 156 mg/dL 03/25/2018 Lipid Ord30 HDL 52.0 mg/dl 03/25/2018 Lipid Ord30 TRIG 98 mg/dL 03/25/2018 Lipid Ord30 LDL 84 mg/dL 03/25/2018 Lipid Ord30 C/HDL 3.0 Ratio 03/25/2018 Free T4 Fbb779 FREE T4 1.73 ng/dL 03/25/2018 Comp Metabolic Leu970 NA 143 mEq/L 03/25/2018 Comp Metabolic Gvl489 K 4.6 mEq/L 03/25/2018 Comp Metabolic Txp168 CL 108 mEq/L 03/25/2018 Comp Metabolic Dap611 CO2 26.0 mEq/L 03/25/2018 Comp Metabolic Xzz059 AN ION GAP 14 03/25/2018 Comp Metabolic Lyw487 GL UCOSE 87 mg/dL 03/25/2018 Comp Metabolic Xaa536 Cr eat 1.2 mg/dL 03/25/2018 Comp Metabolic Pic933 eG FR 48 ml/min/1.73m2 03/25 Comp Metabolic Ucp677 BUN 18 mg/dL 03/25/2018 Comp Metabolic Lli483 B/ C Ratio 15.5 Ratio 03/25/2018 Comp Metabolic Wzz017 CA LCIUM 9.1 mg/dL 03/25/2018 Comp Metabolic Txy695 AL K PHOS 58 U/L 03/25/2018 Comp Metabolic Mcf633 T(SGOT) 21 U/L 03/25/2018 Comp Metabolic Hcf381 AL T(SGPT) 13 U/L 03/25/2018 Comp Metabolic Wbn154 BI LI T 0.7 mg/dL 03/25/2018 Comp Metabolic Xeg589 AL BUMIN 3.2 g/dL 03/25/2018 Comp Metabolic Mya715 TP RO 5.5 g/dL 03/25/2018 Comp Metabolic Tys687 GL OB 2.3 g/dL 03/25/2018 Comp Metabolic Ver392 A/ G Ratio 1.4 Ratio 03/25/2018 Comp Metabolic Hfw825 Os mo 286 mOsmo 03/25/2018 Pt Jqe7481 PT 29.0 seconds 03/22/2018 Pt Sqh8176 INR 2.7 03/22/2018 Pt Bsl2321 Low Intensity - 1.5-2.0 03/22/2018 Pt Izp5886 Mod intensity - 2.0-3.0 03/22/2018 Pt Ayj9224 Hi intensity - 3.0-4.0 03/22/2018 Pt Hoq4625 PT 27.1 seconds 02/25/2018 Pt Cpx6840 INR 2.5 02/25/2018 Pt Ite8591 Low Intensity - 1.5-2.0 02/25/2018 Pt Czq2409 Mod intensity - 2.0-3.0 02/25/2018 Pt Exc1106 Hi intensity - 3.0-4.0 02/25/2018 Pt Toh3773 PT 26.1 seconds 01/26/2018 Pt Oof8712 INR 2.4 01/26/2018 Pt Gtf7902 Low Intensity - 1.5-2.0 01/26/2018 Pt Bnc9417 Mod intensity - 2.0-3.0 01/26/2018 Pt Mks3493 Hi intensity - 3.0-4.0 01/26/2018 Pt Icw4326 PT 22.8 seconds 12/24/2017 Pt Zng8350 INR 2.0 12/24/2017 Pt Gir0087 Low Intensity - 1.5-2.0 12/24/2017 Pt Voe2344 Mod intensity - 2.0-3.0 12/24/2017 Pt Slg4715 Hi intensity - 3.0-4.0 12/24/2017 Pt Bmh6100 PT 29.4 seconds 11/18/2017 Pt Adv7835 INR 2.8 11/18/2017 Pt Niu5740 Low Intensity - 1.5-2.0 11/18/2017 Pt Swo6081 Mod intensity - 2.0-3.0 11/18/2017 Pt Fzs1496 Hi intensity - 3.0-4.0 11/18/2017 Pt Ljw6892 PT 26.6 seconds 09/13/2017 Pt Ifn0496 INR 2.4 09/13/2017 Pt Tgd4194 Low Intensity - 1.5-2.0 09/13/2017 Pt Xxs9134 Mod intensity - 2.0-3.0 09/13/2017 Pt Rcp6786 Hi intensity - 3.0-4.0 09/13/2017 Pt Zrb9767 PT 28.2 seconds 08/10/2017 Pt Qvz7133 INR 2.6 08/10/2017 Pt Qoa4309 Low Intensity - 1.5-2.0 08/10/2017 Pt Hsu6050 Mod intensity - 2.0-3.0 08/10/2017 Pt Ykp1788 Hi intensity - 3.0-4.0 08/10/2017 Pt Rnz9297 PT 33.9 seconds 07/27/2017 Pt Yas8384 INR 3.3 07/27/2017 Pt Nnz6819 Low Intensity - 1.5-2.0 07/27/2017 Pt Iir2248 Mod intensity - 2.0-3.0 07/27/2017 Pt Ymu5088 Hi intensity - 3.0-4.0 07/27/2017 Pt Mly4995 PT 29.1 seconds 06/29/2017 Pt Tgc4326 INR 2.7 06/29/2017 Pt Fmx3726 Low Intensity - 1.5-2.0 06/29/2017 Pt Lcx1039 Mod intensity - 2.0-3.0 06/29/2017 Pt Qfz6130 Hi intensity - 3.0-4.0 06/29/2017 Pt Nik5627 PT 30.3 seconds 06/11/2017 Pt Qov0374 INR 2.9 06/11/2017 Pt Ivm5994 Low Intensity - 1.5-2.0 06/11/2017 Pt Awi0165 Mod intensity - 2.0-3.0 06/11/2017 Pt Sjt0568 Hi intensity - 3.0-4.0 06/11/2017 Pt Gya1054 PT 39.1 seconds 06/07/2017 Pt Xab0032 INR 3.9 06/07/2017 Pt Peo9242 Low Intensity - 1.5-2.0 06/07/2017 Pt Ptn9994 Mod intensity - 2.0-3.0 06/07/2017 Pt Pot2526 Hi intensity - 3.0-4.0 06/07/2017 Pt Vcm8308 PT 34.2 seconds 05/26/2017 Pt Cbi7471 INR 3.3 05/26/2017 Pt Xeo8919 Low Intensity - 1.5-2.0 05/26/2017 Pt Dzv5583 Mod intensity - 2.0-3.0 05/26/2017 Pt Zbg0449 Hi intensity - 3.0-4.0 05/26/2017 Comp Metabolic Vay168 NA 138 mEq/L 04/23/2017 Comp Metabolic Ney183 K 4.2 mEq/L 04/23/2017 Comp Metabolic Cjc291 CL 101 mEq/L 04/23/2017 Comp Metabolic Hyt407 CO2 28.0 mEq/L 04/23/2017 Comp Metabolic Vge441 AN ION GAP 13 04/23/2017 Comp Metabolic Hgo492 GL UCOSE 89 mg/dL 04/23/2017 Comp Metabolic Hzg557 Cr eat 1.1 mg/dL 04/23/2017 Comp Metabolic Hzm577 eG FR 51 ml/min/1.73m2 04/23 Comp Metabolic Kbk270 BUN 26 mg/dL 04/23/2017 Comp Metabolic Snq672 B/ C Ratio 23.9 Ratio 04/23/2017 Comp Metabolic Tvo331 CA LCIUM 9.4 mg/dL 04/23/2017 Comp Metabolic Mmm617 AL K PHOS 95 U/L 04/23/2017 Comp Metabolic Eqx635 T(SGOT) 18 U/L 04/23/2017 Comp Metabolic Nti702 AL T(SGPT) 17 U/L 04/23/2017 Comp Metabolic Wek473 BI LI T 0.7 mg/dL 04/23/2017 Comp Metabolic Upf585 AL BUMIN 3.2 g/dL 04/23/2017 Comp Metabolic Nqs204 TP RO 5.6 g/dL 04/23/2017 Comp Metabolic Hrz678 GL OB 2.4 g/dL 04/23/2017 Comp Metabolic Tsd029 A/ G Ratio 1.3 Ratio 04/23/2017 Comp Metabolic Mpz456 Os mo 280 mOsmo 04/23/2017 Pt Duj7858 PT 28.6 seconds 04/23/2017 Pt Fpp6573 INR 2.7 04/23/2017 Pt Zsf2599 Low Intensity - 1.5-2.0 04/23/2017 Pt Cpf6271 Mod intensity - 2.0-3.0 04/23/2017 Pt Anr5188 Hi intensity - 3.0-4.0 04/23/2017 Pt Vlv2162 PT 24.4 seconds 03/16/2017 Pt Hnt6022 INR 2.2 03/16/2017 Pt Hxd2692 Low Intensity - 1.5-2.0 03/16/2017 Pt Yvy5704 Mod intensity - 2.0-3.0 03/16/2017 Pt Bnq0331 Hi intensity - 3.0-4.0 03/16/2017 Pt Aaf0559 PT 28.2 seconds 02/24/2017 Pt Kcd2196 INR 2.6 02/24/2017 Pt Nmq4592 Low Intensity - 1.5-2.0 02/24/2017 Pt Wtm2813 Mod intensity - 2.0-3.0 02/24/2017 Pt Nez4236 Hi intensity - 3.0-4.0 02/24/2017 Pt Jdm8559 PT 26.8 seconds 02/08/2017 Pt Eby1976 INR 2.5 02/08/2017 Pt Xdu2066 Low Intensity - 1.5-2.0 02/08/2017 Pt Ogn7127 Mod intensity - 2.0-3.0 02/08/2017 Pt Cur9910 Hi intensity - 3.0-4.0 02/08/2017 Lipid Ord30 CHOL 150 mg/dL 01/25/2017 Lipid Ord30 HDL 55.0 mg/dl 01/25/2017 Lipid Ord30 TRIG 66 mg/dL 01/25/2017 Lipid Ord30 LDL 82 mg/dL 01/25/2017 Lipid Ord30 C/HDL 2.7 Ratio 01/25/2017 Pt Mqi4100 PT 29.9 seconds 01/25/2017 Pt Yhy8284 INR 2.8 01/25/2017 Pt Jpf4091 Low Intensity - 1.5-2.0 01/25/2017 Pt Nny8745 Mod intensity - 2.0-3.0 01/25/2017 Pt Szt1160 Hi intensity - 3.0-4.0 01/25/2017 Comp Metabolic Yoz680 NA 143 mEq/L 01/25/2017 Comp Metabolic Ljs981 K 3.9 mEq/L 01/25/2017 Comp Metabolic Vge013 CL 108 mEq/L 01/25/2017 Comp Metabolic Xgr341 CO2 23.0 mEq/L 01/25/2017 Comp Metabolic Aen961 AN ION GAP 16 01/25/2017 Comp Metabolic Kdu860 GL UCOSE 80 mg/dL 01/25/2017 Comp Metabolic Obt020 Cr eat 1.0 mg/dL 01/25/2017 Comp Metabolic Zyc271 eG FR 57 ml/min/1.73m2 01/25 Comp Metabolic Ucl259 BUN 25 mg/dL 01/25/2017 Comp Metabolic Ymw403 B/ C Ratio 25.0 Ratio 01/25/2017 Comp Metabolic Lmy684 CA LCIUM 8.5 mg/dL 01/25/2017 Comp Metabolic Gxg219 AL K PHOS 81 U/L 01/25/2017 Comp Metabolic Hdf628 T(SGOT) 19 U/L 01/25/2017 Comp Metabolic Tab417 AL T(SGPT) 23 U/L 01/25/2017 Comp Metabolic Qip581 BI LI T 0.5 mg/dL 01/25/2017 Comp Metabolic Jmp482 AL BUMIN 2.9 g/dL 01/25/2017 Comp Metabolic Tvi460 TP RO 5.1 g/dL 01/25/2017 Comp Metabolic Exq141 GL OB 2.2 g/dL 01/25/2017 Comp Metabolic Vnv306 A/ G Ratio 1.3 Ratio 01/25/2017 Comp Metabolic Aku620 Os mo 288 mOsmo 01/25/2017 Cbc With [...] 30.7 pg 01/25/2017 Cbc With Differential Ord2 [place]% 8.2 % 01/25/2017 Cbc With Differential Ord2 [...] 3.10 K/ul 01/25/2017 Cbc With Differential Ord2 [place] ABS# 0.8 K/ul 01/25/2017 Cbc With Differential Ord2 Eos ABS# 0.4 K/ul 01/25/2017 Cbc With Differential Ord2 Baso ABS# 0.1 K/ul 01/25/2017 Free T4 Qou081 FREE T4 2.09 ng/dL 01/25/2017 Tsh Ord6 hTSH II 0.46 uIU/mL 01/25/2017 Pt Iac6751 PT 26.1 seconds 11/26/2016 Pt Umw7932 INR 2.6 11/26/2016 Pt Ucm8051 Low Intensity - 1.5-2.0 11/26/2016 Pt Bzw4264 Mod intensity - 2.0-3.0 11/26/2016 Pt Uqm7114 Hi intensity - 3.0-4.0 11/26/2016 Pt Mnw6367 PT 26.2 seconds 10/29/2016 Pt Drl9719 INR 2.6 10/29/2016 Pt Ime7232 Low Intensity - 1.5-2.0 10/29/2016 Pt Wtr6962 Mod intensity - 2.0-3.0 10/29/2016 Pt Uyi5468 Hi intensity - 3.0-4.0 10/29/2016 Pt Rtv0040 PT 20.8 seconds 10/13/2016 Pt Fuv4024 INR 1.9 10/13/2016 Pt Ubn8458 Low Intensity - 1.5-2.0 10/13/2016 Pt Hbh9193 Mod intensity - 2.0-3.0 10/13/2016 Pt Ikr7486 Hi intensity - 3.0-4.0 10/13/2016 Pt Uhl8576 PT 26.5 seconds 10/01/2016 Pt Wxx1348 INR 2.6 10/01/2016 Pt Gar6257 Low Intensity - 1.5-2.0 10/01/2016 Pt Vpb5054 Mod intensity - 2.0-3.0 10/01/2016 Pt Qim1941 Hi intensity - 3.0-4.0 10/01/2016 Pt Agr5213 PT 24.6 seconds 09/14/2016 Pt Byk5671 INR 2.4 09/14/2016 Pt Jie7247 Low Intensity - 1.5-2.0 09/14/2016 Pt Tim0620 Mod intensity - 2.0-3.0 09/14/2016 Pt Kqa9786 Hi intensity - 3.0-4.0 09/14/2016 Pt Alf8719 PT 18.0 seconds 09/07/2016 Pt Tpi5994 INR 1.6 09/07/2016 Pt Wcb4152 Low Intensity - 1.5-2.0 09/07/2016 Pt Svq5010 Mod intensity - 2.0-3.0 09/07/2016 Pt Asm7362 Hi intensity - 3.0-4.0 09/07/2016 Pt Apk7408 PT 23.7 seconds 08/12/2016 Pt Wtv4398 INR 2.2 08/12/2016 Pt Lzf6105 Low Intensity - 1.5-2.0 08/12/2016 Pt Kkg4172 Mod intensity - 2.0-3.0 08/12/2016 Pt Aji2644 Hi intensity - 3.0-4.0 08/12/2016 Pt Jcy1399 PT 21.6 seconds 07/27/2016 Pt Bth0407 INR 2.0 07/27/2016 Pt Hyb4833 Low Intensity - 1.5-2.0 07/27/2016 Pt Vjp2238 Mod intensity - 2.0-3.0 07/27/2016 Pt Uix4316 Hi intensity - 3.0-4.0 07/27/2016 Pt Pbc3568 PT 26.0 seconds 06/15/2016 Pt Mhn1159 INR 2.5 06/15/2016 Pt Orf0653 Low Intensity - 1.5-2.0 06/15/2016 Pt Ois1101 Mod intensity - 2.0-3.0 06/15/2016 Pt Vmg7474 Hi intensity - 3.0-4.0 06/15/2016 Pt Wph3649 PT 18.8 seconds 06/01/2016 Pt Byh5457 INR 1.7 06/01/2016 Pt Lin6350 Low Intensity - 1.5-2.0 06/01/2016 Pt Dll4971 Mod intensity - 2.0-3.0 06/01/2016 Pt Sse6355 Hi intensity - 3.0-4.0 06/01/2016 Pt Mld2037 PT 20.8 seconds 05/12/2016 Pt Nrj2516 INR 1.9 05/12/2016 Pt Yfn3482 Low Intensity - 1.5-2.0 05/12/2016 Pt Wam0044 Mod intensity - 2.0-3.0 05/12/2016 Pt Xuk7311 Hi intensity - 3.0-4.0 05/12/2016 Pt Bmk9350 PT 24.5 seconds 04/10/2016 Pt Kkd3707 INR 2.4 04/10/2016 Pt Itt4363 Low Intensity - 1.5-2.0 04/10/2016 Pt Sck0726 Mod intensity - 2.0-3.0 04/10/2016 Pt Zou0393 Hi intensity - 3.0-4.0 04/10/2016 Pt Lhq1592 PT 26.4 seconds 03/10/2016 Pt Vuc6475 INR 2.6 03/10/2016 Pt Qtl0551 Low Intensity - 1.5-2.0 03/10/2016 Pt Isb0988 Mod intensity - 2.0-3.0 03/10/2016 Pt Pbp4656 Hi intensity - 3.0-4.0 03/10/2016 Pt Mpr0568 PT 24.9 seconds 03/06/2016 Pt Xhw1832 INR 2.4 03/06/2016 Pt Uxb5107 Low Intensity - 1.5-2.0 03/06/2016 Pt Lwg7175 Mod intensity - 2.0-3.0 03/06/2016 Pt Vdv4999 Hi intensity - 3.0-4.0 03/06/2016 Pt Eny7602 PT 21.9 seconds 02/25/2016 Pt Ipd8358 INR 2.0 02/25/2016 Pt Jgw4317 Low Intensity - 1.5-2.0 02/25/2016 Pt Ist3900 Mod intensity - 2.0-3.0 02/25/2016 Pt Rkz2391 Hi intensity - 3.0-4.0 02/25/2016 Pt Ofd5162 PT 21.8 seconds 02/21/2016 Pt Zvb1432 INR 2.0 02/21/2016 Pt Eyg6442 Low Intensity - 1.5-2.0 02/21/2016 Pt Pqv0853 Mod intensity - 2.0-3.0 02/21/2016 Pt Lva0182 Hi intensity - 3.0-4.0 02/21/2016 Culture Urine [id number] URI NE CULTURE SEE NOTES 02/20/2016 Culture Urine [id number] Con tinued Results 02/20/2016 Urine Culture Ucult [...] 29.2 pg 02/14/2016 Cbc With Differential Ord2 [place]% 9.3 % 02/14/2016 Cbc With Differential Ord2 [...] 2.55 K/ul 02/14/2016 Cbc With Differential Ord2 [place] ABS# 0.8 K/ul 02/14/2016 Cbc With Differential Ord2 Eos ABS# 0.4 K/ul 02/14/2016 Cbc With Differential Ord2 Baso ABS# 0.1 K/ul 02/14/2016 Tsh Ord6 hTSH II 0.80 uIU/mL 02/14/2016 Pt Bfv5813 PT 27.1 seconds 02/14/2016 Pt Nmk8487 INR 2.7 02/14/2016 Pt Jqb4458 Low Intensity - 1.5-2.0 02/14/2016 Pt Mep1686 Mod intensity - 2.0-3.0 02/14/2016 Pt Hzn2990 Hi intensity - 3.0-4.0 02/14/2016 Free T4 Jpt308 FREE T4 1.87 ng/dL 02/14/2016 Comp Metabolic Nxl933 NA 139 mEq/L 02/14/2016 Comp Metabolic Hrz263 K 3.8 mEq/L 02/14/2016 Comp Metabolic Yvg097 CL 103 mEq/L 02/14/2016 Comp Metabolic Psk566 CO2 27.0 mEq/L 02/14/2016 Comp Metabolic Ypb321 AN ION GAP 13 02/14/2016 Comp Metabolic Vyo552 GL UCOSE 91 mg/dL 02/14/2016 Comp Metabolic Gnz843 Cr eat 1.0 mg/dL 02/14/2016 Comp Metabolic Xac785 eG FR 58 ml/min/1.73m2 02/13 Comp Metabolic Cqg124 BUN 16 mg/dL 02/14/2016 Comp Metabolic Wuh456 B/ C Ratio 16.2 Ratio 02/14/2016 Comp Metabolic Rgx983 CA LCIUM 9.0 mg/dL 02/14/2016 Comp Metabolic Nnz468 AL K PHOS 88 U/L 02/14/2016 Comp Metabolic Pvi597 T(SGOT) 17 U/L 02/14/2016 Comp Metabolic Pmv141 AL T(SGPT) 12 U/L 02/14/2016 Comp Metabolic Lsw327 BI LI T 0.6 mg/dL 02/14/2016 Comp Metabolic Swg236 AL BUMIN 3.2 g/dL 02/14/2016 Comp Metabolic Tsr589 TP RO 5.8 g/dL 02/14/2016 Comp Metabolic Abf862 GL OB 2.6 g/dL 02/14/2016 Comp Metabolic Bvz946 A/ G Ratio 1.3 Ratio 02/14/2016 Comp Metabolic Alc538 Os mo 278 mOsmo 02/14/2016 Pt Bvq9095 PT 34.6 seconds 02/06/2016 Pt Xnp5326 INR 3.7 02/06/2016 Pt Yhs3845 Low Intensity - 1.5-2.0 02/06/2016 Pt Nkf0608 Mod intensity - 2.0-3.0 02/06/2016 Pt Saw0957 Hi intensity - 3.0-4.0 02/06/2016 Pt Dbg4197 PT 33.3 seconds 01/23/2016 Pt Lnp4515 INR 3.5 01/23/2016 Pt Enj6893 Low Intensity - 1.5-2.0 01/23/2016 Pt Bnf6296 Mod intensity - 2.0-3.0 01/23/2016 Pt Lqo0212 Hi intensity - 3.0-4.0 01/23/2016 Pt Xxg4784 PT 30.5 seconds 12/31/2015 Pt Ogd1247 INR 3.2 12/31/2015 Pt Opm3961 Low Intensity - 1.5-2.0 12/31/2015 Pt Zbl2289 Mod intensity - 2.0-3.0 12/31/2015 Pt Zvn8187 Hi intensity - 3.0-4.0 12/31/2015 Pt Ifz6806 PT 35.6 seconds 12/25/2015 Pt Cqe9476 INR 3.9 12/25/2015 Pt Pse5855 Low Intensity - 1.5-2.0 12/25/2015 Pt Eln9648 Mod intensity - 2.0-3.0 12/25/2015 Pt Doh2781 Hi intensity - 3.0-4.0 12/25/2015 Pt Rhs4042 PT 30.8 seconds 11/21/2015 Pt Pht1599 INR 3.2 11/21/2015 Pt Cyv7757 Low Intensity - 1.5-2.0 11/21/2015 Pt Qky5932 Mod intensity - 2.0-3.0 11/21/2015 Pt Zyt3875 Hi intensity - 3.0-4.0 11/21/2015 Uric Acid [...] 30.0 pg 11/20/2015 Cbc With Differential Ord2 [place]% 8.1 % 11/20/2015 Cbc With Differential Ord2 [...] 2.51 K/ul 11/20/2015 Cbc With Differential Ord2 [place] ABS# 0.9 K/ul 11/20/2015 Cbc With Differential Ord2 Eos ABS# 0.3 K/ul 11/20/2015 Cbc With Differential Ord2 Baso ABS# 0.0 K/ul 11/20/2015 Comp Metabolic Igi197 NA 137 mEq/L 10/22/2015 Comp Metabolic Qmr674 K 3.9 mEq/L 10/22/2015 Comp Metabolic Hdb544 CL 100 mEq/L 10/22/2015 Comp Metabolic Nai936 CO2 31.0 mEq/L 10/22/2015 Comp Metabolic Oiu360 AN ION GAP 10 10/22/2015 Comp Metabolic Ski625 GL UCOSE 94 mg/dL 10/22/2015 Comp Metabolic Yqx222 Cr eat 1.0 mg/dL 10/22/2015 Comp Metabolic Nhx116 eG FR 55 ml/min/1.73m2 10/21 Comp Metabolic Lpa903 BUN 19 mg/dL 10/22/2015 Comp Metabolic Kqa898 B/ C Ratio 18.3 Ratio 10/22/2015 Comp Metabolic Hci378 CA LCIUM 8.8 mg/dL 10/22/2015 Comp Metabolic Vyo970 AL K PHOS 83 U/L 10/22/2015 Comp Metabolic Chi415 T(SGOT) 15 U/L 10/22/2015 Comp Metabolic Vyq681 AL T(SGPT) 13 U/L 10/22/2015 Comp Metabolic Jvg783 BI LI T 0.9 mg/dL 10/22/2015 Comp Metabolic Kol964 AL BUMIN 2.8 g/dL 10/22/2015 Comp Metabolic Srx857 TP RO 5.4 g/dL 10/22/2015 Comp Metabolic Foo483 GL OB 2.6 g/dL 10/22/2015 Comp Metabolic Fmy758 A/ G Ratio 1.1 Ratio 10/22/2015 Comp Metabolic Wdj795 Os mo 276 mOsmo 10/22/2015 Bili D Ord93 BILI D 0.1 mg/dL 10/22/2015 Bili D Ord93 BILI I 0.8 mg/dL 10/22/2015 Pt Ymr6784 PT 22.8 seconds 10/22/2015 Pt Pbp0132 INR 2.1 10/22/2015 Pt Dgu8619 Low Intensity - 1.5-2.0 10/22/2015 Pt Wvw4756 Mod intensity - 2.0-3.0 10/22/2015 Pt Gkc8234 Hi intensity - 3.0-4.0 10/22/2015 Pt Xyz5832 PT 28.0 seconds 09/16/2015 Pt Rqp8765 INR 2.7 09/16/2015 Pt Kou1789 Low Intensity - 1.5-2.0 09/16/2015 Pt Tyc8866 Mod intensity - 2.0-3.0 09/16/2015 Pt Ekn8228 Hi intensity - 3.0-4.0 09/16/2015 Tsh Ord6 hTSH II 1.40 uIU/mL 09/16/2015 Free T4 Yxx514 FREE T4 1.73 ng/dL 09/16/2015 Lipid Ord30 CHOL 169 mg/dL 09/16/2015 Lipid Ord30 HDL 66.0 mg/dl 09/16/2015 Lipid Ord30 TRIG 78 mg/dL 09/16/2015 Lipid Ord30 LDL 87 mg/dL 09/16/2015 Lipid Ord30 C/HDL 2.6 Ratio 09/16/2015 Pt Jlh3173 PT 26.6 seconds 08/21/2015 Pt Eje4478 INR 2.6 08/21/2015 Pt Jos1344 Low Intensity - 1.5-2.0 08/21/2015 Pt Nmd6163 Mod intensity - 2.0-3.0 08/21/2015 Pt Hho1923 Hi intensity - 3.0-4.0 08/21/2015 Comp Metabolic Rew988 NA 141 mEq/L 08/08/2015 Comp Metabolic Zic136 K 3.3 mEq/L 08/08/2015 Comp Metabolic Wuh538 CL 102 mEq/L 08/08/2015 Comp Metabolic Mov744 CO2 31.0 mEq/L 08/08/2015 Comp Metabolic Lle497 AN ION GAP 11 08/08/2015 Comp Metabolic Ikb897 GL UCOSE 83 mg/dL 08/08/2015 Comp Metabolic Cai459 Cr eat 1.0 mg/dL 08/08/2015 Comp Metabolic Ljh702 eG FR 55 ml/min/1.73m2 08/08 Comp Metabolic Rdz772 BUN 19 mg/dL 08/08/2015 Comp Metabolic Vne560 B/ C Ratio 18.3 Ratio 08/08/2015 Comp Metabolic Plk278 CA LCIUM 8.9 mg/dL 08/08/2015 Comp Metabolic Lot035 AL K PHOS 84 U/L 08/08/2015 Comp Metabolic Swb964 T(SGOT) 20 U/L 08/08/2015 Comp Metabolic Sud478 AL T(SGPT) 18 U/L 08/08/2015 Comp Metabolic Ums738 BI LI T 0.6 mg/dL 08/08/2015 Comp Metabolic Nji735 AL BUMIN 3.3 g/dL 08/08/2015 Comp Metabolic Owv908 TP RO 5.9 g/dL 08/08/2015 Comp Metabolic Mfm466 GL OB 2.6 g/dL 08/08/2015 Comp Metabolic Swu343 A/ G Ratio 1.3 Ratio 08/08/2015 Comp Metabolic Mbs083 Os mo 283 mOsmo 08/08/2015 Cbc With [...] 30.0 pg 08/08/2015 Cbc With Differential Ord2 [place]% 8.2 % 08/08/2015 Cbc With Differential Ord2 [...] 2.90 K/ul 08/08/2015 Cbc With Differential Ord2 [place] ABS# 0.9 K/ul 08/08/2015 Cbc With Differential [...] Ord93 BILI I 0.5 mg/dL 08/08/2015 Pt Pmq7584 PT 31.8 seconds 08/05/2015 Pt Ujm4502 INR 3.2 08/05/2015 Pt Pck0706 Low Intensity - 1.5-2.0 08/05/2015 Pt Jbk5175 Mod intensity - 2.0-3.0 08/05/2015 Pt Mso4233 Hi intensity - 3.0-4.0 08/05/2015 Pt Fxf8458 PT 27.4 seconds 06/27/2015 Pt Kas5258 INR 2.6 06/27/2015 Pt Fyy7495 Low Intensity - 1.5-2.0 06/27/2015 Pt Tmg1941 Mod intensity - 2.0-3.0 06/27/2015 Pt Wxn1640 Hi intensity - 3.0-4.0 06/27/2015 Tsh Ord6 [...] Ord2 RDW 15.1 % 05/31/2015 Free T4 Ifv884 FREE T4 1.89 ng/dL 05/31/2015 Comp Metabolic Lyc432 NA 140 mEq/L 05/31/2015 Comp Metabolic Xsf607 K 3.3 mEq/L 05/31/2015 Comp Metabolic Abp410 CL 99 mEq/L 05/31/2015 Comp Metabolic Bnq904 CO2 30.0 mEq/L 05/31/2015 Comp Metabolic Vrz615 AN ION GAP 14 05/31/2015 Comp Metabolic Dch678 GL UCOSE 70 mg/dL 05/31/2015 Comp Metabolic Zgn873 Cr eat 1.0 mg/dL 05/31/2015 Comp Metabolic Wcx791 eG FR 55 ml/min/1.73m2 05/31 Comp Metabolic Vkm742 BUN 23 mg/dL 05/31/2015 Comp Metabolic Drx900 B/ C Ratio 22.1 Ratio 05/31/2015 Comp Metabolic Ojo952 CA LCIUM 8.9 mg/dL 05/31/2015 Comp Metabolic Cpu086 AL K PHOS 86 U/L 05/31/2015 Comp Metabolic Zmv319 T(SGOT) 28 U/L 05/31/2015 Comp Metabolic Zsn308 AL T(SGPT) 30 U/L 05/31/2015 Comp Metabolic Qky096 BI LI T 0.4 mg/dL 05/31/2015 Comp Metabolic Eug985 AL BUMIN 3.3 g/dL 05/31/2015 Comp Metabolic Max610 TP RO 6.0 g/dL 05/31/2015 Comp Metabolic Wkf004 GL OB 2.7 g/dL 05/31/2015 Comp Metabolic Jzb321 A/ G Ratio 1.2 Ratio 05/31/2015 Comp Metabolic Kwo775 Os mo 282 mOsmo 05/31/2015 Pt Gis2748 PT 23.3 seconds 04/15/2015 Pt Dls6644 INR 2.2 04/15/2015 Pt Orw0630 Low Intensity - 1.5-2.0 04/15/2015 Pt Dxm7939 Mod intensity - 2.0-3.0 04/15/2015 Pt Xoh6773 Hi intensity - 3.0-4.0 04/15/2015 Pt Hfn0753 PT 19.5 seconds 04/04/2015 Pt Utc7840 INR 1.7 04/04/2015 Pt Wzg3813 Low Intensity - 1.5-2.0 04/04/2015 Pt Vtd5569 Mod intensity - 2.0-3.0 04/04/2015 Pt Mrg4226 Hi intensity - 3.0-4.0 04/04/2015 Pt Zps6404 PT 39.8 seconds 04/01/2015 Pt Zyx6971 INR 4.3 04/01/2015 Pt Nbz0418 Low Intensity - 1.5-2.0 04/01/2015 Pt Ncs1491 Mod intensity - 2.0-3.0 04/01/2015 Pt Xhy4544 Hi intensity - 3.0-4.0 04/01/2015 Metabolic Ord15 [...] Metabolic Ord15 CALCIUM 8.7 mg/dL 02/28/2015 Pt Hrf5800 PT 31.4 seconds 02/28/2015 Pt Kvz7100 INR 3.2 02/28/2015 Pt Zhc9580 Low Intensity - 1.5-2.0 02/28/2015 Pt Pdr3694 Mod intensity - 2.0-3.0 02/28/2015 Pt Zej2240 Hi intensity - 3.0-4.0 02/28/2015 Pt Bxv0059 PT 23.2 seconds 01/18/2015 Pt Ibq8445 INR 2.1 01/18/2015 Pt Qco7897 Low Intensity - 1.5-2.0 01/18/2015 Pt Kqb1630 Mod intensity - 2.0-3.0 01/18/2015 Pt Lgr7766 Hi intensity - 3.0-4.0 01/18/2015 Pt Vld8812 PT 18.2 seconds 01/10/2015 Pt Jkq7140 INR 1.6 01/10/2015 Pt Dbc6827 Low Intensity - 1.5-2.0 01/10/2015 Pt Gqf7758 Mod intensity - 2.0-3.0 01/10/2015 Pt Onn2845 Hi intensity - 3.0-4.0 01/10/2015 Review of [...] 03/24/2018 ADMIN PNEUMOCOCCAL V ACCINE SNOMED CT: 90075558 CPT-4: G0009 03/24/2018 FLU VACC PRSV FREE I NC ANTIG Formatting Model/CDA Sections, Assigned to/Dorothea Tan CPT-4: 80493Kmotsqg 03/24/2018 Pneumococcal Polysac charide Vaccine, 23-Valent, Ad CPT-4: 48932 03/24/2018 TRIAMCINOLONE ACET I [place] NOS CPT-4: J3301 06/15/2017 THER/PROPH/DIAG INJ SC/IM CPT-4: 86746 06/15/2017 ADMIN PNEUMOCOCCAL V ACCINE SNOMED CT: 05794457 CPT-4: G0009 03/16/2017 ADMIN INFLUENZA VIRU S VAC CPT-4: G0008 03/16/2017 FLU VAC NO PRSV 4 VA L 3 YRS+ CPT-4: 53485 03/16/2017 PNEUMOCOCCAL VACC [address]: 94068214 CPT-4: 34984 03/16/2017 URINALYSIS NONAUTO W /O SCOPE CPT-4: 63169 08/26/2016 THER/PROPH/DIAG INJ SC/IM CPT-4: 74650 07/22/2016 TRIAMCINOLONE ACET I [place] NOS CPT-4: J3301 07/22/2016 ROCEPHIN, PER 250 MG CPT-4: J0696 07/22/2016 TRIAMCINOLONE ACET I [place] NOS CPT-4: J3301 02/05/2015 Vital Signs Date Vital 09/27/2018 Blood Pressure 1: 128/74 Code: 8480-6 BMI: 32.4 Code: 07169-6 Heart Rate 1: 92 bpm Height: 5'7" SpO2: 97% Weight: 207 lbs 08/16/2018 Blood Pressure 1: 104/66 Code: 8480-6 BMI: 32.3 Code: 57632-9 Heart Rate 1: 94 bpm Height: 5'7" SpO2: 96% Weight: 206 lbs 07/11/2018 Blood Pressure 1: 102/68 Code: 8480-6 BMI: 34.5 Code: 52835-3 Heart Rate 1: 101 bpm Height: 5'7" SpO2: 98% Weight: 220 lbs 03/24/2018 Blood Pressure 1: 130/72 Code: 8480-6 BMI: 33.4 Code: 16461-8 Heart Rate 1: 82 bpm Height: 5'7" SpO2: 93% Weight: 213 lbs 11/18/2017 Blood Pressure 1: 128/70 Code: 8480-6 BMI: 33.6 Code: 56884-4 Heart Rate 1: 98 bpm Height: 5'7" SpO2: 97% Weight: 214 lbs 8 oz 09/30/2017 Blood Pressure 1: 100/50 Code: 8480-6 BMI: 34.0 Code: 66189-9 Heart Rate 1: 66 bpm Height: 5'7" SpO2: 96% Weight: 217 lbs 08/17/2017 Blood Pressure 1: 104/60 Code: 8480-6 BMI: 33.7 Code: 62712-1 Heart Rate 1: 99 bpm Height: 5'7" SpO2: 97% Weight: 215 lbs 06/15/2017 Blood Pressure 1: 120/64 Code: 8480-6 BMI: 33.5 Code: 54964-4 Heart Rate 1: 91 bpm Height: 5'7" SpO2: 94% Weight: 214 lbs 04/01/2017 Blood Pressure 1: 110/68 Code: 8480-6 BMI: 154.4 Code: 58477-4 Heart Rate 1: 66 bpm Height: 2'7" SpO2: 95% Weight: 211 lbs 03/16/2017 Blood Pressure 1: 130/72 Code: 8480-6 BMI: 33.0 Code: 58220-0 Heart Rate 1: 95 bpm Height: 5'7" SpO2: 97% Weight: 211 lbs 02/09/2017 Blood Pressure 1: 120/70 Code: 8480-6 BMI: 32.9 Code: 46680-2 Heart Rate 1: 78 bpm Height: 5'7" SpO2: 96% Weight: 210 lbs 10/13/2016 Blood Pressure 1: 118/76 Code: 8480-6 BMI: 32.6 Code: 71913-5 Heart Rate 1: 97 bpm Height: 5'7" SpO2: 98% Weight: 208 lbs 07/31/2016 Blood Pressure 1: 110/64 Code: 8480-6 BMI: 32.1 Code: 48990-7 Heart Rate 1: 79 bpm Height: 5'7" SpO2: 94% Weight: 205 lbs 07/22/2016 Blood Pressure 1: 108/74 Code: 8480-6 BMI: 32.1 Code: 47399-8 Heart Rate 1: 71 bpm Height: 5'7" SpO2: 97% Temperature: 36.9 (C ) / 98.4 (F) Weight: 205 lbs 05/01/2016 Blood Pressure 1: 120/72 Code: 8480-6 BMI: 32.7 Code: 73112-1 Heart Rate 1: 75 bpm Height: 5'7" SpO2: 94% Weight: 209 lbs 04/06/2016 Blood Pressure 1: 106/62 Code: 8480-6 BMI: 32.7 Code: 25337-4 Heart Rate 1: 83 bpm Height: 5'7" SpO2: 97% Weight: 209 lbs 03/06/2016 Blood Pressure 1: 112/68 Code: 8480-6 BMI: 32.7 Code: 32910-0 Heart Rate 1: 90 bpm Height: 5'7" SpO2: 97% Weight: 209 lbs 03/03/2016 Blood Pressure 1: 120/62 Code: 8480-6 BMI: 32.7 Code: 85768-3 Heart Rate 1: 92 bpm Height: 5'7" SpO2: 98% Weight: 209 lbs 02/07/2016 Blood Pressure 1: 110/64 Code: 8480-6 BMI: 32.7 Code: 49550-1 Heart Rate 1: 87 bpm Height: 5'7" SpO2: 97% Weight: 209 lbs 12/13/2015 Blood Pressure 1: 110/64 Code: 8480-6 BMI: 33.5 Code: 23317-2 Heart Rate 1: 90 bpm Height: 5'7" SpO2: 97% Weight: 214 lbs 12/03/2015 Blood Pressure 1: 132/76 Code: 8480-6 BMI: 33.4 Code: 46252-1 Heart Rate 1: 82 bpm Height: 5'7" SpO2: 99% Weight: 213 lbs 11/20/2015 Blood Pressure 1: 108/68 Code: 8480-6 BMI: 32.4 Code: 40191-2 Heart Rate 1: 77 bpm Height: 5'7" SpO2: 97% Weight: 207 lbs 09/17/2015 Blood Pressure 1: 122/76 Code: 8480-6 BMI: 33.0 Code: 49368-7 Heart Rate 1: 91 bpm Height: 5'7" SpO2: 97% Weight: 211 lbs 05/31/2015 Blood Pressure 1: 128/82 Code: 8480-6 BMI: 33.4 Code: 34574-5 Heart Rate 1: 98 bpm Height: 5'7" SpO2: 99% Weight: 213 lbs 02/05/2015 Blood Pressure 1: 128/80 Code: 8480-6 BMI: 32.6 Code: 74627-2 Heart Rate 1: 86 bpm Height: 5'7" SpO2: 97% Weight: 208 lbs 11/20/2014 Blood Pressure 1: 128/90 Code: 8480-6 BMI: 30.9 Code: 63053-9 Heart Rate 1: 94 bpm Height: 5'7" [...] Findings Denies fever 05/31/2015 None hypothyroid 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 02/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 P ATIENT, LEVEL IV Diagnosis: Atrophy of thyroid (acquired)[ICD10: E03.4] Diagnosis: Essential (primary) hypertension[ICD10: I10] Diagnosis: Other fatigue[ICD10: R53.83] Diagnosis: Localized edema[ICD10: R60.0] Valerie Pisano MD, [facility] CPT-4: 14504 07/11/2018 ([id number]) 92515 EST. P ATIENT, LEVEL IV Diagnosis: Essential (primary) hypertension[ICD10: I10] Diagnosis: Atrophy of thyroid (acquired)[ICD10: E03.4] Diagnosis: Chronic atrial fibrillation[ICD10: I48.2] Valerie Pisano MD, C CPT-4: 49275 03/24/2018 ([id number]) 17062 EST. P ATIENT, LEVEL IV Diagnosis: Essential (primary) hypertension[ICD10: I10] Diagnosis: Atrophy of thyroid (acquired)[ICD10: E03.4] Diagnosis: Chronic atrial fibrillation[ICD10: I48.2] Valerie Pisano MD, [facility] CPT-4: 07132 11/18/2017 21106 EST. PATIENT, LEVEL IV Diagnosis: Localized edema[ICD10: R60.0] Roxie Pisano MD, [facility] CPT-4: 45731 09/30/2017 ([id number]) 27134 EST. P ATIENT, LEVEL III Diagnosis: Essential (primary) hypertension[ICD10: I10] Valerie Pisano MD, C CPT-4: 64607 08/17/2017 ([id number]) 81205 EST. P ATIENT, LEVEL IV Diagnosis: Essential (primary) hypertension[ICD10: I10] Diagnosis: Atrophy of thyroid (acquired)[ICD10: E03.4] Diagnosis: Chronic atrial fibrillation[ICD10: I48.2] Diagnosis: Cervicalgia[ICD10: M54.2] Diagnosis: Other muscle spasm[ICD10: M62.838] Valerie Pisano MD, [facility] CPT- 4: 76161 06/15/2017 98837 EST. PATIENT, LEVEL III Diagnosis: Laceration without foreign body of other finger without damage to nail, initial encounter[ICD10: S61.218A] Roxie Pisano MD, [facility] CPT-4: 53302 04/01/2017 ([id number]) 27335 EST. 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 PATIENT, LEVEL III Diagnosis: Other acute sinusitis[ICD10: J01.80] Diagnosis: Other allergic rhinitis[ICD10: J30.89] Roxie Pisano MD, [facility] CPT-4: 45820 07/31/2016 ([id number]) 96278 EST. P ATIENT, LEVEL III Diagnosis: Acute recurrent maxillary sinusitis[ICD10: J01.01] Valerie Pisano MD, [facility] CPT-4: 75335 07/22/2016 01793 EST. PATIENT, LEVEL IV Diagnosis: Essential (primary) hypertension[ICD10: I10] Diagnosis: Other allergic rhinitis[ICD10: J30.89] Diagnosis: Localized edema[ICD10: R60.0] Roxie Pisano MD, [facility] CPT-4: 34251 05/01/2016 37214 EST. PATIENT, LEVEL III Diagnosis: Cellulitis of left lower limb[ICD10: L03.116] Diagnosis: Localized edema[ICD10: R60.0] Roxie Pisano MD, [facility] CPT-4: 43205 04/06/2016 ([id number]) Miscellaneou s no charge Diagnosis: Cellulitis of left lower limb[ICD10: L03.116] Diagnosis: Localized edema[ICD10: R60.0] Roxie Pisano MD, [facility] CPT-4: 27816 03/10/2016 ([id number]) Miscellaneou s no charge Diagnosis: Cellulitis of left lower limb[ICD10: L03.116] Roxie Pisano MD, [facility] CPT-4: 43763 03/06/2016 06370 EST. PATIENT, LEVEL IV Diagnosis: Cellulitis of left lower limb[ICD10: L03.116] Diagnosis: Localized edema[ICD10: R60.0] Roxie Pisano MD, [facility] CPT-4: 43454 03/03/2016 ([id number]) 56655 EST. P ATIENT, LEVEL III Diagnosis: Essential (primary) hypertension[ICD10: I10] Diagnosis: retirement (current) use of anticoagulants[ICD10: Z79.01] Diagnosis: Chronic atrial fibrillation[ICD10: I48.2] Brielle Pisano MD, [facility] CPT-4: 13002 02/07/2016 ([id number]) 03458 EST. P ATIENT, LEVEL III Diagnosis: Iliotibial band syndrome, right leg[ICD10: M76.31] Diagnosis: Localized edema[ICD10: R60.0] Brielle Pisano MD, [facility] CPT- 4: 97974 12/13/2015 ([id number]) 03149 EST. P ATIENT, LEVEL III Diagnosis: Localized edema[ICD10: R60.0] Diagnosis: Essential (primary) hypertension[ICD10: I10] Brielle Pisano MD, [facility] CPT-4: 06541 12/03/2015 ([id number]) 80451 EST. 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 PATIENT, LEVEL IV Diagnosis: Essential (primary) hypertension[ICD10: I10] Diagnosis: retirement (current) use of anticoagulants[ICD10: Z79.01] Diagnosis: Muscle spasm of back[ICD10: M62.830] Roxie Pisano MD, [facility] CPT- 4: 29897 09/17/2015 ([id number]) 17846 EST. P ATIENT, LEVEL IV Diagnosis: Localized edema[ICD10: R60.0] Diagnosis: Other specified hypothyroidism[ICD10: E03.8] Diagnosis: Essential (primary) hypertension[ICD10: I10] Brielle Psiano MD, [facility] CPT-4: 58275 05/31/2015 ([id number]) 51944 EST. [facility] Diagnosis: ALLERGIC RHINITIS[ICD9: 477.9] Diagnosis: ESSENTIAL HYPERTENSION[ICD9: 401.9] Brielle Pisano MD, [facility] CPT-4: 99208 02/05/2015 ([id number]) OFFICE SENA MASON - LEVEL 4 Diagnosis: ESSENTIAL HYPERTENSION[ICD9: 401.9] Diagnosis: HYPOTHYROIDISM[ICD9: 244.9] Diagnosis: ACTINIC KERATOSIS[ICD9: 702.0] Valerie Pisano MD, [facility] CPT-4: 31684 11/20/2014 Plan of Care Planned Activity Notes [...] to her appt with Dr. Hernandez. 09/27/2018 Patient Education: Patient Medication Summary Completed [...] daily. 08/16/2018 Appointment: Valerie Pisano WPtel: [phone] [id number] (15 min) Moderate 08/16/2018 Patient Education: Patient Medication Summary Completed 08/16/2018 Patient Education: Hypertension Completed 08/16/2018 Patient Education: Patient Medication Summary Completed 07/29/2018 App[facility]ment[phone] [place] (15 min) Moderate 07/12/2018 Visit Plan: [...] twice daily. 07/11/2018 Appointment: Valerie Pisano WPtel: [phone] [facility] (15 min) Moderate 07/11/2018 Patient Education: Patient [...] today. 03/24/2018 Appointment: [facility] P[facility]ano [phone] ([facility] min) Moderate 03/24/2018 Patient Education: [...] of control. 11/18/2017 Appointment: Valerie Pisano WPtel: [facility] (15 min) Moderate 11/18/2017 Patient Education: Patient Medication Summary Completed 11/18/2017 Referral: [facility] WPtel: 1 [facility] Pt notified at appointment Appointment [...] Boots 09/30/2017 Appointment: Roxie Cazares WPtel: [facility] [place] (30 min) Complex 09/30/2017 Patient Education: Patient Medication Summary Completed 09/30/2017 Care Plan: Referral Order SNOMED-CT : [id number] Pending 09/30/2017 Visit Plan: Hypertension - well [...] time. 08/17/2017 Appointment: Valerie Pisano WPtel: [facility] [place] (15 min) Moderate 08/17/2017 Patient Education: [...] neck muscles. allergies - kenalog 40mg im [employer] squibb - lot # [id number] expires september 2018 06/15/2017 Visit Plan: Hypertension [...] muscles. 06/15/2017 Appointment: Valerie Pisano WPtel: [facility] [place] ([facility] min) Moderate 06/15/2017 Patient Education: Patient Medication Summary Completed 06/15/2017 Care Plan: Referral Order SNOMED-CT : [id number] Pending 06/15/2017 Appointment: Nurse Visit 04/05/2017 Appointment: [...] booster. 04/01/2017 Appointment: Roxie Cazares WPtel: [phone] [facility] (15 min) Moderate 04/01/2017 Patient Education: Patient [...] WPtel: [phone] [facility] (15 min) Moderate 03/16/2017 Patient Education: Patient [...] 02/09/2017 Appointment: [facility]ano [facility]el[phone] (15 min) Moderate 02/09/2017 Patient Education: [...] 10/13/2016 Appointment: [facility]el[facility] (15 min) Moderate 10/13/2016 Patient Education: Patient Medication Summary Completed 10/13/2016 Patient Education: Obesity Completed 10/13/2016 Patient Education: Hypertension Completed 10/13/2016 Care Plan: Urine Culture Pending 08/31/2016 Appointment: Roxie Cazares WPtel: [facility]5 [facility] Lab Draw 08/27/2016 Appointment: Nurse Visit 08/26/2016 [...] allergy spray. 07/31/2016 Appointment: Brielle Cavazos WPtel: [facility]5 [facility] (30 min) Complex 07/31/2016 Patient Education: Patient Medication Summary Completed 07/31/2016 Patient Education: Obesity Completed 07/31/2016 Visit Plan: Sinusitis - Pt has acut e infection - pain in face, maxillary region, Pt informed to use decongestant, RX given to patient, sinus rinses also recommended. Call if symptoms do not show improvement. 07/22/2016 Appointment: Valerie Pisano WPtel: [facility] (15 min) Moderate 07/22/2016 Patient Education: Patient [...] edema. 05/01/2016 Appointment: Brielle Cavazos WPtel: [facility]5 [phone] (30 min) Complex 05/01/2016 Patient Education: Patient [...] edema. 04/06/2016 Appointment: Roxie Cazares WPtel: [facility]5 [facility] (30 min) Complex 04/06/2016 Patient Education: Patient Medication Summary Completed 04/06/2016 Patient Education: Obesity Completed 04/06/2016 Visit Plan: left foot - improved - pt finished with antibiotics - continue to monitor - notify clinic with any concerns. Repeat INR today. 03/10/2016 Appointment: Brielle Cavazos WPtel: [facility]8 [phone] (30 min) Complex 03/10/2016 Patient Education: Patient Medication Summary Completed 03/10/2016 Visit Plan: Cellulitis - continue w ith oral antibiotics as previously directed, return to clinic as previously directed, call for acute change in symptoms, worsening redness, warmth, discharge. 03/06/2016 Appointment: Brielle Cavazos WPtel: [phone] (15 min) Moderate 03/06/2016 Patient Education: Patient Medication Summary Completed 03/06/2016 Patient Education: Obesity Completed 03/06/2016 Visit Plan: Cellulitis - continue w ith oral antibiotics as previously directed, return to clinic as previously directed, call for acute change in symptoms, worsening redness, warmth, discharge. 03/03/2016 Appointment: Brielle Cavazos WPtel: [address] [place], [place] [phone] (15 min) Moderate 03/03/2016 Patient Education: Patient [...] 3.5. 02/07/2016 Appointment: Brielle Cavazos WPtel: [phone] (30 min) Complex 02/07/2016 Patient Education: Patient Medication Summary Completed 02/07/2016 Patient Education: Obesity Completed 02/07/2016 Patient Education: Hypertension Completed 02/07/2016 Appointment: Brielle Cavazos WPtel: [address] [place], [place] [phone] (30 min) Complex 02/04/2016 Visit Plan: Iliotibial [...] peripheral edema. 12/13/2015 Appointment: Bri[facility]azos [facility]Ptel: [phone] (15 min) Moderate 12/13/2015 Patient Education: Patient [...] home. 12/03/2015 Appointment: Brielle Cavazos WPtel: [phone] [phone] [place] (30 min) Complex 12/03/2015 Patient Education: [...] Completed 02/05/2015 Appointment: Valerie Pisano WPtel: [facility] (15 min) Moderate 01/29/2015 Visit Plan: Hypertension [...] control. 11/20/2014 Appointment: Valerie Pisano WPtel: [phone] [facility] [place] (S) New Patient 11/20/2014 Patient Education: Patient Medication Summary Completed 11/20/2014 Patient Education: Hypertension Completed 11/20/2014 Patient Education: Patient Medication Summary Completed 10/19/2014 Referral: [facility] WPtel: Referral Appointment Requested Referral: [facility] WPtel: [address] [place] [id number] [place] Referral Appointment Confirmed Instructions Comment CHECK [...] twice daily. get blood work one w la posta before next appt - fasting labs Decrease [...] neck muscles. allergies - kenalog 40mg im [employer] squibb - lot # [id number] expires september 2018 . Hypertension - wel [...]
--- OUTSIDE RECORDS SUMMARY | 2019-09-12 11:30 | XMS REPORT | CCD ---
Author Author Clara Pisano Organization [facility] Address [address] [place] [address] Phone Care Team Providers Care Laboratory Assistant Name Role Phone PP Unavailable CCM Unavailable Summary Purpose Interface Exchange Insurance Providers Payer name Policy type / Coverage type Covered constitution party ID Effective Begin Date Effective End Date WPS Medicare Part B Medicare Part B [id number] 2018 Unknown [employer] Medicare Part B [id number] Unknown Family history Sister Diagnosis Age At Onset defect Unknown Breast cancer Unknown Daughter Diagnosis Age At Onset Breast cancer Unknown Mother Diagnosis Age At Onset No Family Disease Entered N/A Social History Social History Element Codes Description Effective Dates Marital status Unknown M arried Lane 11/20/2014 Number of children Unknown 6 11/20/2014 Employment Unknown Retir ed 11/20/[address]: 6917529 Quit over 10 years ago 1963 11/20/2014 [...] 401.9 ICD-10: I10 Active 04/30/2016 Unknown 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 ICD-9: V58.61 ICD-10: Z79.01 Active 02/06/2016 Unknown Sebaceous cyst ICD-9: 706.2 ICD-10: L72.3 [...] ICD-9: 244.8 ICD-10: E03.8 Active 05/30/2015 Unknown Other skin changes ICD- 9: 782.9 [...] anticoagulants ICD-9: V58.61 ICD-10: Z79.01 02/06/2016 Active Sebaceous cyst ICD-9: 706.2 ICD-10: L72.3 [...] thyroidism ICD-9: 244.8 ICD-10: E03.8 05/30/2015 Active Other skin changes ICD- 9: 782.9 [...] Fill Instructions Coumadin 4 mg tablet RxNorm: 533483 1 Tablet(s) PO daily 08/16/2018 08/10/2019 Active this is an update to her RX - she will l et you know when she needs refill triamcinolone aceton sreekanth 0.025 % topical cream RxNorm: 9029826 1 Application TOP QI D 08/16/2018 No Stop Date Active levothyroxine 125 mc g tablet RxNorm: 795233 TAKE ONE TABLET BY [facility] DAILY ON WEDNESDAY, WED, AND WEDNESDAY, AND 1/2 TABLET ON , , WED AND WEDNESDAY. TAKE ON AN EMPTY STOMACH 08/04/2018 04/30/2019 Active meclizine 25 mg tablet RxNorm: 286372 1 Tablet(s) PO TID as needed Dizziness 07/22/2018 No Stop Date Active meclizine 25 mg tablet RxNorm: 547020 1 Tablet(s) PO TID as needed Dizziness 07/19/2018 07/21/2018 In active furosemide 40 mg tablet RxNorm: 784926 1 Tablet(s) BID take 1.5 tabs twice a da y x 7 days then 1 pill daily thereafter 07/11/2018 02/05/2019 Active Coumadin 4 mg tablet RxNorm: 118010 1 Tablet(s) PO daily except 1.5 pills on WEDNESDAY AND Wednesday07/11/2018 08/15/2018 Inactive this is an update to her RX - she will let you know when she needs refill warfarin 5 mg tablet RxNorm: 362939 Tablet(s) TAKE ONE TABLET BY MOUTH DAILY EXCEPT / TAKE 4 MG 04/06/2018 08/22/2019 Active diltiazem 60 mg tablet RxNorm: 457193 1/2 Tablet(s) PO QID 03/24/2018 No Stop Date Active levothyroxine 125 mc g tablet RxNorm: 467349 TAKE ONE TABLET BY [facility] DAILY ON WEDNESDAY, WED, AND WEDNESDAY, AND 1/2 TABLET ON , , WED AND WEDNESDAY. TAKE ON AN EMPTY STOMACH 02/02/2018 07/31/2018 Inactive Coumadin 4 mg tablet RxNorm: 456828 TAKE ONE TABLET BY MOUTH DAILY ON AND Wednesday10/14/2017 07/10/2018 Inactive nystatin 100,000 uni t/gram topical cream RxNorm: 804801 1 Application TOP TID 08/17/2017 No Stop Date Active Voltaren 1 % topical gel RxNorm: 956514 2 Gram(s) TOP TID luiz ly to shoulder and neck 08/17/2017 No Stop Date Active triamcinolone aceton sreekanth 0.025 % topical cream RxNorm: 0119514 1 Application TOP BI D 08/17/2017 08/15/2018 In active levothyroxine 125 mc g tablet RxNorm: 592427 1 Tablet(s) UD 1 pill wed/wed/wed, 1/2 pill //wed/wed take ON AN EMPTY STOMACH 08/05/2017 02/01/2018 Inactive Coumadin 4 mg tablet RxNorm: 056029 1 Tablet(s) PO Wed/07/29/2017 10/13/2017 Inactive warfarin 5 mg tablet RxNorm: 492210 TAKE 1 AND 1/2 TABLETS BY MOUTH ON AND WEDNESDAY. TAKE ONLY 1 TABLET BY MOUTH ALL OTHER DAYS OF THE WEEK 07/12/2017 04/05/2018 In active furosemide 40 mg tablet RxNorm: 570915 Tablet(s) BID TAKE ONE TABLET BY MOUTH D AILY 06/15/2017 07/10/2018 Inactive Voltaren 1 % topical gel RxNorm: 141060 2 Gram(s) TOP TID luiz ly to shoulder and neck 06/15/2017 08/16/2017 Inactive Keflex 500 mg capsule RxNorm: 624154 1 Capsule(s) PO TID 04/01/2017 04/07/2017 Inactive furosemide 40 mg tablet RxNorm: 743710 TAKE ONE TABLET BY MOUTH DAILY 03/18/2017 06/14/2017 In active Claritin-D 12 Hour 5 mg-120 mg tablet,extended release RxNorm: 0726316 1 Tablet(s) PO BID 03/16/2017 05/14/2017 Inactive Lipitor 20 mg tablet RxNorm: 417375 1 Tablet(s) PO daily 02/09/2017 03/10/2017 Inactive lisinopril 2.5 mg ta blet RxNorm: 478197 1 Tablet(s) PO daily 02/09/2017 03/10/2017 Inactive Nasonex 50 mcg/actua tion [place] RxNorm: 3964450 1 [place] NASAL BID 02/09/2017 09/06/2017 Inactive levothyroxine 125 mc g tablet RxNorm: 190430 1 Tablet(s) UD 1 pill wed/wed/wed, 1/2 pill //wed/sun take ON AN EMPTY STOMACH 02/09/2017 08/04/2017 Inactive fluorouracil 5 % top ical cream RxNorm: 011980 1 Application TOP BID 02/09/2017 02/18/2017 Inactive potassium chloride E R 20 mEq tablet,extended release RxNorm: 134139 Tablet(s) TAKE ONE TABLET BY MOUTH DAILY 02/08/2017 02/02/2018 Inactive warfarin 5 mg tablet RxNorm: 452208 TAKE 1 AND 1/2 TABLETS BY MOUTH ON AND WEDNESDAY. TAKE ONLY 1 TABLET BY MOUTH ALL OTHER DAYS OF THE WEEK 12/14/2016 05/30/2017 In active potassium chloride E R 20 mEq tablet,extended release RxNorm: 140841 TAKE ONE TABLET BY MOUTH DAILY 10/29/2016 01/26/2017 Inactive warfarin 5 mg tablet RxNorm: 521218 TAKE 1 AND 1/2 TABLETS BY MOUTH ON AND WEDNESDAY. TAKE ONLY 1 TABLET BY MOUTH ALL OTHER DAYS OF THE WEEK 10/27/2016 12/13/2016 In active nystatin 100,000 uni t/gram topical cream RxNorm: 366949 1 Application TOP TID 10/13/2016 08/16/2017 In active nitrofurantoin 50 mg capsule RxNorm: 931371 1 Capsule(s) PO BID 09/04/2016 09/03/2016 Inactive nitrofurantoin macro crystal 50 mg capsule RxNorm: 372088 1 Capsule(s) PO BID 09/04/2016 09/10/2016 In active Cipro 500 mg tablet RxNorm: 747772 1 Tablet(s) PO BID 08/26/2016 10/12/2016 Inactive Zyrtec 10 mg tablet RxNorm: 5803408 1 Tablet(s) PO daily 07/31/2016 08/29/2016 Inactive prednisone 20 mg tablet RxNorm: 156525 2 Tablet(s) PO daily 07/31/2016 08/02/2016 Inactive Kenalog 40 mg/mL zohra pension for injection RxNorm: 1214651 Milliliter(s) Inj 07/22/2016 07/22/2016 In active ceftriaxone 500 mg s olution for injection RxNorm: 3265722 Inj 07/22/2016 07/22/2016 Inactive Flonase Allergy Reli ef 50 mcg/actuation nasal spray,suspension RxNorm: 9041674 1 [place] NASAL BID 07/22/2016 08/20/2016 Inactive azithromycin 250 mg tablet RxNorm: 134077 2 Tablet(s) PO on day #1, then 1 pill daily x 4 days 07/22/2016 10/12/2016 Inactive warfarin 5 mg tablet RxNorm: 376519 TAKE 1 AND 1/2 TABLETS BY MOUTH ON AND WEDNESDAY. TAKE ONLY 1 TABLET BY MOUTH ALL OTHER DAYS OF THE WEEK 07/09/2016 09/30/2016 In active levothyroxine 125 mc g tablet RxNorm: 344122 Tablet(s) TAKE ONE TA BLET BY MOUTH DAILY ON AN EMPTY STOMACH 06/23/2016 02/08/2017 Inactive levothyroxine 125 mc g tablet RxNorm: 746237 TAKE ONE TABLET BY [facility] DAILY ON AN EMPTY STOMACH 06/23/2016 06/22/2016 Inactive levothyroxine 125 mc g tablet RxNorm: 070828 TAKE ONE TABLET BY [facility] DAILY ON AN EMPTY STOMACH 06/23/2016 08/04/2017 Inactive cetirizine 10 mg tablet RxNorm: 3989889 TAKE ONE TABLET BY MOUTH DAILY 06/16/2016 10/13/2016 In active furosemide 40 mg tablet RxNorm: 501477 Tablet(s) TAKE ONE TABLET BY MOUTH DAILY 06/05/2016 12/01/2016 In active cetirizine 10 mg tablet RxNorm: 3268373 1 Tablet(s) PO daily 05/01/2016 05/30/2016 Inactive Levaquin 250 mg tablet RxNorm: 249897 Tablet(s) PO 2 pills day one and 1 pill day 2-7 04/06/2016 07/21/2016 Inactive warfarin 5 mg tablet RxNorm: 294357 Tablet(s) 1/2 TABLETS BY MOUTH ON AND WEDNESDAY. TAKE ONLY 1 TABLET BY MOUTH ALL OTHER DAYS OF THE WEEK 03/18/2016 07/07/2016 In active triamcinolone aceton sreekanth 0.025 % topical cream RxNorm: 2129859 1 Application TOP BI D 03/10/2016 08/16/2017 In active potassium chloride E R 20 mEq tablet,extended release RxNorm: 645515 1 Tablet(s) PO daily 03/04/2016 06/01/2016 Inactive Levaquin 250 mg tablet RxNorm: 970992 Tablet(s) PO 2 pills day one and 1 pill day 2-7 03/04/2016 04/05/2016 Inactive Levaquin 250 mg tablet RxNorm: 130716 Tablet(s) PO 2 pills day one and 1 pill day 2-7 03/03/2016 03/03/2016 Inactive potassium chloride E R 20 mEq tablet,extended release RxNorm: 889026 1 Tablet(s) PO daily 03/03/2016 03/03/2016 Inactive Cipro 500 mg tablet RxNorm: 631088 1 Tablet(s) PO BID 02/20/2016 07/21/2016 Inactive Cipro 500 mg tablet RxNorm: 445754 1 Tablet(s) PO BID 02/20/2016 02/19/2016 Inactive furosemide 40 mg tablet RxNorm: 805557 TAKE ONE TABLET BY MOUTH DAILY 01/27/2016 01/26/2016 In active warfarin 5 mg tablet RxNorm: 509685 TAKE 1 AND 1/2 TABLETS BY MOUTH ON AND WEDNESDAY. TAKE ONLY 1 TABLET BY MOUTH ALL OTHER DAYS OF THE WEEK 01/27/2016 01/26/2016 In active furosemide 40 mg tablet RxNorm: 583594 TAKE ONE TABLET BY MOUTH DAILY 01/27/2016 06/04/2016 In active warfarin 5 mg tablet RxNorm: 866125 TAKE 1 AND 1/2 TABLETS BY MOUTH ON AND WEDNESDAY. TAKE ONLY 1 TABLET BY MOUTH ALL OTHER DAYS OF THE WEEK 01/27/2016 03/17/2016 In active potassium chloride E R 20 mEq tablet,extended release RxNorm: 157415 1 Tablet(s) PO daily 11/20/2015 03/02/2016 Inactive furosemide 40 mg tablet RxNorm: 051314 TAKE ONE TABLET BY MOUTH DAILY 11/12/2015 01/26/2016 In active Zovirax 5 % topical cream RxNorm: 028137 TOP QID 0 09/24/2015 09/23/2015 Inactive Zovirax 5 % topical cream RxNorm: 368935 TOP QID 0 09/24/2015 11/19/2015 Inactive nystatin 100,000 uni t/gram topical cream RxNorm: 318310 1 Application TOP TID 09/17/2015 10/12/2016 In active warfarin 5 mg tablet RxNorm: 086477 TAKE 1 AND 1/2 TABLETS BY MOUTH ON AND WEDNESDAY. TAKE ONLY 1 TABLET BY MOUTH ALL OTHER DAYS OF THE WEEK 08/19/2015 01/05/2016 In active loratadine 10 mg tablet RxNorm: 923852 1 Tablet(s) PO daily 07/30/2015 07/23/2016 Inactive loratadine 10 mg tablet RxNorm: 974290 1 Tablet(s) PO daily 07/30/2015 07/29/2015 Inactive furosemide 40 mg tablet RxNorm: 435624 TAKE ONE TABLET BY MOUTH DAILY 06/24/2015 11/11/2015 In active levothyroxine 125 mc g tablet RxNorm: 317404 1 Tablet(s) PO daily 05/31/2015 05/24/2016 Inactive furosemide 40 mg tablet RxNorm: 973415 1 Tablet(s) PO daily 04/05/2015 06/23/2015 Inactive warfarin 5 mg tablet RxNorm: 687255 TAKE 1 AND 1/2 TABLETS BY MOUTH ON AND WEDNESDAY. TAKE ONLY 1 TABLET BY MOUTH ALL OTHER DAYS OF THE WEEK 02/12/2015 07/29/2015 In active Flonase Allergy Reli ef 50 mcg/actuation nasal spray,suspension RxNorm: 2 [place] NASAL daily 02/05/2015 03/06/2015 Inactive Kenalog 40 mg/mL zohra pension for injection RxNorm: 2737751 Milliliter(s) Inj 02/05/2015 02/05/2015 In active warfarin 5 mg tablet RxNorm: 164739 Take 7.5mg (1 1/2 tablets) Wednesday and and 1 Tablet(s) PO (5mg) all other days 01/11/2015 02/09/2015 Inactive levothyroxine 125 mc g tablet RxNorm: 848723 1 Tablet(s) PO every other day 01/01/2015 05/30/2015 In active alternate with 150 levothyroxine 150 mc g tablet RxNorm: 174581 1 Tablet(s) PO every other day 01/01/2015 05/30/2015 In active alternate with 125 loratadine 10 mg tablet RxNorm: 608701 Tablet(s) PO as needed No Start Date Active Fish Oil 1,000 mg ca psule RxNorm: 1 Capsule(s) PO TID No Start Date Active magnesium 250 mg tablet RxNorm: 1 Tablet(s) PO daily No Start Date Active Vitamin D3 2,000 uni t tablet RxNorm: 309918 2 Tablet(s) PO daily No Start Date Active Fosamax 35 mg tablet RxNorm: 877849 1 Tablet(s) PO QW No Start Date Active levothyroxine 125 mc g tablet RxNorm: 073548 1 Tablet(s) PO daily No Start Date 12/31/2014 Inactive levothyroxine 150 mc g tablet RxNorm: 744906 1 Tablet(s) PO daily No Start Date 12/31/2014 Inactive diltiazem 60 mg tablet RxNorm: 147861 1 Tablet(s) PO QID No Start Date 03/23/2018 Inactive meclizine 25 mg tablet RxNorm: 989004 1 Tablet(s) PO TID as needed Dizziness No Start Date 07/18/2018 Inactive furosemide 40 mg tablet RxNorm: 220686 1 Tablet(s) PO daily No Start Date 04/04/2015 Inactive potassium chloride RxNorm: miscellaneous No Start Date 11/19/2015 Inactive Vitamin D2 oral RxNorm: 4018 oral No Start Date 05/31/2015 Inactive warfarin 5 mg tablet RxNorm: 051092 1 Tablet(s) PO daily No Start Date 01/10/2015 Inactive Coumadin 4 mg tablet RxNorm: 665625 1 Tablet(s) PO Wed/ No Start Date 07/28/2017 Inactive Medication Administered Medication Codes Instruc tions Start Date Status ceftriaxone 500 mg solution for injection RxNorm: 1859559 07/22/2016 No longer A ctive Kenalog 40 mg/mL suspension for injection RxNorm: 0803807 Milliliter 07/22/2016 No longer Active Kenalog 40 mg/mL suspension for injection RxNorm: 6667106 Milliliter 02/05/2015 No longer Active Immunizations Vaccine Codes Date Status Influenza CVX: 141 03/24 completed Pneumococcal (Adult) CVX: 33 03/24/2018 completed Influenza CVX: 141 03/16 completed Pneumococcal (Adult) CVX: 133 03/16/2017 completed Influenza CVX: 141 05/06 completed Influenza CVX: 141 04/28 completed Pneumococcal CVX: 33 06/1999 completed Assessments Condition Codes Effectiv e Dates Essential (primary) hypertension ICD -10: I10 ICD-9: 401.9 08/16/2018 Chronic atrial fibrillation ICD-10: I48.2 ICD-9: 427.31 08/16/2018 Sebaceous cyst ICD-10: L72.3 ICD-9: 706.2 08/16/2018 Atrophy of thyroid (acquired) ICD-10 : E03.4 ICD-9: 244.8 08/16/2018 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 ICD-10: Z79.01 ICD-9: V58.61 08/16/2018 Encounter for screening mammogram for ma [...] 11/20/2014 ACTINIC KERATOSIS ICD-9: 702.0 11/20/2014 terminal worker current use of anticoagulant therapy ICD-9: V58.61 10/19/2014 Reason For Visit Reason For Visit Effective Dates Notes hypertension 08/16/2018 hypertension 07/11/2018 hypertension 03/24/2018 hypertension [...] Code Item Item Code Result Date Pt Hwo4722 PT 19.6 seconds 09/19/2018 Pt Pxk8752 INR 1.7 09/19/2018 Pt Goc0683 Low Intensity - 1.5-2.0 09/19/2018 Pt Obg3332 Mod intensity - 2.0-3.0 09/19/2018 Pt Rpe5047 Hi intensity - 3.0-4.0 09/19/2018 Pt Qds8196 PT 16.8 seconds 09/12/2018 Pt Wet6629 INR 1.4 09/12/2018 Pt Njs4056 Low Intensity - 1.5-2.0 09/12/2018 Pt Wow8605 Mod intensity - 2.0-3.0 09/12/2018 Pt Amw5651 Hi intensity - 3.0-4.0 09/12/2018 Pt Lkz1197 PT 13.1 seconds 09/07/2018 Pt Xfq4439 INR 1.0 09/07/2018 Pt Cxc3773 Low Intensity - 1.5-2.0 09/07/2018 Pt Zdm0641 Mod intensity - 2.0-3.0 09/07/2018 Pt Vof7819 Hi intensity - 3.0-4.0 09/07/2018 Pt Kuo6818 PT 24.1 seconds 08/23/2018 Pt Dsx8570 INR 2.2 08/23/2018 Pt Rmk0870 Low Intensity - 1.5-2.0 08/23/2018 Pt Iuy0267 Mod intensity - 2.0-3.0 08/23/2018 Pt Kea5306 Hi intensity - 3.0-4.0 08/23/2018 Pt Tmm8233 PT 30.9 seconds 08/16/2018 Pt Kvk8968 INR 3.0 08/16/2018 Pt Nji1667 Low Intensity - 1.5-2.0 08/16/2018 Pt Pnh5357 Mod intensity - 2.0-3.0 08/16/2018 Pt Cew8660 Hi intensity - 3.0-4.0 08/16/2018 Pt Uen2494 PT 29.5 seconds 08/01/2018 Pt Ovk8561 INR 2.8 08/01/2018 Pt Lha0830 Low Intensity - 1.5-2.0 08/01/2018 Pt Ysd3569 Mod intensity - 2.0-3.0 08/01/2018 Pt Guw7617 Hi intensity - 3.0-4.0 08/01/2018 Pt Sok0415 PT 24.2 seconds 07/25/2018 Pt Vpb2993 INR 2.2 07/25/2018 Pt Jag1825 Low Intensity - 1.5-2.0 07/25/2018 Pt Itc2524 Mod intensity - 2.0-3.0 07/25/2018 Pt Hne2441 Hi intensity - 3.0-4.0 07/25/2018 Pt Lsg7892 PT 38.6 seconds 07/19/2018 Pt Bxq7317 INR 4.0 07/19/2018 Pt Ttu5440 Low Intensity - 1.5-2.0 07/19/2018 Pt Ysc7741 Mod intensity - 2.0-3.0 07/19/2018 Pt Tnw5513 Hi intensity - 3.0-4.0 07/19/2018 Pt Lnf7717 PT 25.7 seconds 07/11/2018 Pt Rsc7742 INR 2.4 07/11/2018 Pt Azm0330 Low Intensity - 1.5-2.0 07/11/2018 Pt Ldf7620 Mod intensity - 2.0-3.0 07/11/2018 Pt Rck0468 Hi intensity - 3.0-4.0 07/11/2018 Pt Whx1190 PT 18.5 seconds 07/08/2018 Pt Yet8689 INR 1.6 07/08/2018 Pt Upm8450 Low Intensity - 1.5-2.0 07/08/2018 Pt Pow0248 Mod intensity - 2.0-3.0 07/08/2018 Pt Yct3666 Hi intensity - 3.0-4.0 07/08/2018 Pt Ezm4092 PT 27.3 seconds 06/29/2018 Pt Gtj1422 INR 2.6 06/29/2018 Pt Ljl5478 Low Intensity - 1.5-2.0 06/29/2018 Pt Bph2611 Mod intensity - 2.0-3.0 06/29/2018 Pt Axo9582 Hi intensity - 3.0-4.0 06/29/2018 Pt Frj7106 PT 24.0 seconds 05/26/2018 Pt Juq3849 INR 2.2 05/26/2018 Pt Nff3361 Low Intensity - 1.5-2.0 05/26/2018 Pt Vna0604 Mod intensity - 2.0-3.0 05/26/2018 Pt Nxt0538 Hi intensity - 3.0-4.0 05/26/2018 Tsh Ord6 [...] 29.6 pg 03/25/2018 Cbc With Differential Ord2 [place]% 9.5 % 03/25/2018 Cbc With Differential Ord2 [...] 2.19 K/ul 03/25/2018 Cbc With Differential Ord2 [place] ABS# 0.8 K/ul 03/25/2018 Cbc With Differential Ord2 Eos ABS# 0.3 K/ul 03/25/2018 Cbc With Differential Ord2 Baso ABS# 0.0 K/ul 03/25/2018 Lipid Ord30 CHOL 156 mg/dL 03/25/2018 Lipid Ord30 HDL 52.0 mg/dl 03/25/2018 Lipid Ord30 TRIG 98 mg/dL 03/25/2018 Lipid Ord30 LDL 84 mg/dL 03/25/2018 Lipid Ord30 C/HDL 3.0 Ratio 03/25/2018 Free T4 Tek170 FREE T4 1.73 ng/dL 03/25/2018 Comp Metabolic Hqx880 NA 143 mEq/L 03/25/2018 Comp Metabolic Gyw312 K 4.6 mEq/L 03/25/2018 Comp Metabolic Uje797 CL 108 mEq/L 03/25/2018 Comp Metabolic Tdo437 CO2 26.0 mEq/L 03/25/2018 Comp Metabolic Wmi444 AN ION GAP 14 03/25/2018 Comp Metabolic Oen778 GL UCOSE 87 mg/dL 03/25/2018 Comp Metabolic Cww516 Cr eat 1.2 mg/dL 03/25/2018 Comp Metabolic Zwk576 eG FR 48 ml/min/1.73m2 03/25 Comp Metabolic Cxu592 BUN 18 mg/dL 03/25/2018 Comp Metabolic Mzw111 B/ C Ratio 15.5 Ratio 03/25/2018 Comp Metabolic Fqy814 CA LCIUM 9.1 mg/dL 03/25/2018 Comp Metabolic Lgy222 AL K PHOS 58 U/L 03/25/2018 Comp Metabolic Rmw673 T(SGOT) 21 U/L 03/25/2018 Comp Metabolic Zpz095 AL T(SGPT) 13 U/L 03/25/2018 Comp Metabolic Ymi838 BI LI T 0.7 mg/dL 03/25/2018 Comp Metabolic Dkq357 AL BUMIN 3.2 g/dL 03/25/2018 Comp Metabolic Vtu225 TP RO 5.5 g/dL 03/25/2018 Comp Metabolic Hlm826 GL OB 2.3 g/dL 03/25/2018 Comp Metabolic Gut595 A/ G Ratio 1.4 Ratio 03/25/2018 Comp Metabolic Bta663 Os mo 286 mOsmo 03/25/2018 Pt Ucz6296 PT 29.0 seconds 03/22/2018 Pt Xbz2403 INR 2.7 03/22/2018 Pt Oet2927 Low Intensity - 1.5-2.0 03/22/2018 Pt Rmu3868 Mod intensity - 2.0-3.0 03/22/2018 Pt Joe3568 Hi intensity - 3.0-4.0 03/22/2018 Pt Ovr0222 PT 27.1 seconds 02/25/2018 Pt Szc1745 INR 2.5 02/25/2018 Pt Rug8132 Low Intensity - 1.5-2.0 02/25/2018 Pt Toz3381 Mod intensity - 2.0-3.0 02/25/2018 Pt Yha1930 Hi intensity - 3.0-4.0 02/25/2018 Pt Mpm2197 PT 26.1 seconds 01/26/2018 Pt Tfy4088 INR 2.4 01/26/2018 Pt Vvl7268 Low Intensity - 1.5-2.0 01/26/2018 Pt Vex3835 Mod intensity - 2.0-3.0 01/26/2018 Pt Dxz1155 Hi intensity - 3.0-4.0 01/26/2018 Pt Xtq5698 PT 22.8 seconds 12/24/2017 Pt Rnb1661 INR 2.0 12/24/2017 Pt Wnz6357 Low Intensity - 1.5-2.0 12/24/2017 Pt Eio9466 Mod intensity - 2.0-3.0 12/24/2017 Pt Jei9324 Hi intensity - 3.0-4.0 12/24/2017 Pt Mfy9811 PT 29.4 seconds 11/18/2017 Pt Rzy7177 INR 2.8 11/18/2017 Pt Tpu1099 Low Intensity - 1.5-2.0 11/18/2017 Pt Zrk8316 Mod intensity - 2.0-3.0 11/18/2017 Pt Jgx4127 Hi intensity - 3.0-4.0 11/18/2017 Pt Ltw6782 PT 26.6 seconds 09/13/2017 Pt Gfv1926 INR 2.4 09/13/2017 Pt Sma8993 Low Intensity - 1.5-2.0 09/13/2017 Pt Zgy0002 Mod intensity - 2.0-3.0 09/13/2017 Pt Kbm4463 Hi intensity - 3.0-4.0 09/13/2017 Pt Mpn1683 PT 28.2 seconds 08/10/2017 Pt Wad6176 INR 2.6 08/10/2017 Pt Zqc3159 Low Intensity - 1.5-2.0 08/10/2017 Pt Yse0901 Mod intensity - 2.0-3.0 08/10/2017 Pt Xcg8519 Hi intensity - 3.0-4.0 08/10/2017 Pt Exm8295 PT 33.9 seconds 07/27/2017 Pt Kbn2126 INR 3.3 07/27/2017 Pt Ubh8684 Low Intensity - 1.5-2.0 07/27/2017 Pt Jep4508 Mod intensity - 2.0-3.0 07/27/2017 Pt Xog7658 Hi intensity - 3.0-4.0 07/27/2017 Pt Dhf9103 PT 29.1 seconds 06/29/2017 Pt Fri5355 INR 2.7 06/29/2017 Pt Eab0611 Low Intensity - 1.5-2.0 06/29/2017 Pt Nur2481 Mod intensity - 2.0-3.0 06/29/2017 Pt Vjv9970 Hi intensity - 3.0-4.0 06/29/2017 Pt Rol1241 PT 30.3 seconds 06/11/2017 Pt Ooc3386 INR 2.9 06/11/2017 Pt Jtn8790 Low Intensity - 1.5-2.0 06/11/2017 Pt Rbw4584 Mod intensity - 2.0-3.0 06/11/2017 Pt Adm4129 Hi intensity - 3.0-4.0 06/11/2017 Pt Att5445 PT 39.1 seconds 06/07/2017 Pt Lqx1614 INR 3.9 06/07/2017 Pt Dil5584 Low Intensity - 1.5-2.0 06/07/2017 Pt Bov7297 Mod intensity - 2.0-3.0 06/07/2017 Pt Dkc4333 Hi intensity - 3.0-4.0 06/07/2017 Pt Aaw7318 PT 34.2 seconds 05/26/2017 Pt Pbr1377 INR 3.3 05/26/2017 Pt Uya0577 Low Intensity - 1.5-2.0 05/26/2017 Pt Hnj2295 Mod intensity - 2.0-3.0 05/26/2017 Pt Bjk0854 Hi intensity - 3.0-4.0 05/26/2017 Comp Metabolic Arx421 NA 138 mEq/L 04/23/2017 Comp Metabolic Ect843 K 4.2 mEq/L 04/23/2017 Comp Metabolic Qxl153 CL 101 mEq/L 04/23/2017 Comp Metabolic Exv037 CO2 28.0 mEq/L 04/23/2017 Comp Metabolic Mgq504 AN ION GAP 13 04/23/2017 Comp Metabolic Ime418 GL UCOSE 89 mg/dL 04/23/2017 Comp Metabolic Reb822 Cr eat 1.1 mg/dL 04/23/2017 Comp Metabolic Djm923 eG FR 51 ml/min/1.73m2 04/23 Comp Metabolic Tck519 BUN 26 mg/dL 04/23/2017 Comp Metabolic Nec526 B/ C Ratio 23.9 Ratio 04/23/2017 Comp Metabolic Nfi554 CA LCIUM 9.4 mg/dL 04/23/2017 Comp Metabolic Sdb434 AL K PHOS 95 U/L 04/23/2017 Comp Metabolic Jad223 T(SGOT) 18 U/L 04/23/2017 Comp Metabolic Lwt870 AL T(SGPT) 17 U/L 04/23/2017 Comp Metabolic Tyf626 BI LI T 0.7 mg/dL 04/23/2017 Comp Metabolic Wdu465 AL BUMIN 3.2 g/dL 04/23/2017 Comp Metabolic Asd752 TP RO 5.6 g/dL 04/23/2017 Comp Metabolic Kas730 GL OB 2.4 g/dL 04/23/2017 Comp Metabolic Hia260 A/ G Ratio 1.3 Ratio 04/23/2017 Comp Metabolic Vzl499 Os mo 280 mOsmo 04/23/2017 Pt Bvw9850 PT 28.6 seconds 04/23/2017 Pt Qzt6152 INR 2.7 04/23/2017 Pt Rlt2428 Low Intensity - 1.5-2.0 04/23/2017 Pt Qgn0396 Mod intensity - 2.0-3.0 04/23/2017 Pt Axb1599 Hi intensity - 3.0-4.0 04/23/2017 Pt Rrd3358 PT 24.4 seconds 03/16/2017 Pt Yuq1779 INR 2.2 03/16/2017 Pt Jtr2617 Low Intensity - 1.5-2.0 03/16/2017 Pt Kcg0133 Mod intensity - 2.0-3.0 03/16/2017 Pt Qri8961 Hi intensity - 3.0-4.0 03/16/2017 Pt Ojo5957 PT 28.2 seconds 02/24/2017 Pt Djj8629 INR 2.6 02/24/2017 Pt Lfk3777 Low Intensity - 1.5-2.0 02/24/2017 Pt Ghd2155 Mod intensity - 2.0-3.0 02/24/2017 Pt Htu7969 Hi intensity - 3.0-4.0 02/24/2017 Pt Nsw5632 PT 26.8 seconds 02/08/2017 Pt Nwc7538 INR 2.5 02/08/2017 Pt Uob4147 Low Intensity - 1.5-2.0 02/08/2017 Pt Uqt1105 Mod intensity - 2.0-3.0 02/08/2017 Pt Bpp8767 Hi intensity - 3.0-4.0 02/08/2017 Lipid Ord30 CHOL 150 mg/dL 01/25/2017 Lipid Ord30 HDL 55.0 mg/dl 01/25/2017 Lipid Ord30 TRIG 66 mg/dL 01/25/2017 Lipid Ord30 LDL 82 mg/dL 01/25/2017 Lipid Ord30 C/HDL 2.7 Ratio 01/25/2017 Pt Zig1585 PT 29.9 seconds 01/25/2017 Pt [id number] INR 2.8 01/25/2017 Pt Nhc3548 Low Intensity - 1.5-2.0 01/25/2017 Pt Pjk7345 Mod intensity - 2.0-3.0 01/25/2017 Pt Ddh6195 Hi intensity - 3.0-4.0 01/25/2017 Comp Metabolic Ufa725 NA 143 mEq/L 01/25/2017 Comp Metabolic Ruk914 K 3.9 mEq/L 01/25/2017 Comp Metabolic Nlc865 CL 108 mEq/L 01/25/2017 Comp Metabolic Emw989 CO2 23.0 mEq/L 01/25/2017 Comp Metabolic Cre556 AN ION GAP 16 01/25/2017 Comp Metabolic Ght617 GL UCOSE 80 mg/dL 01/25/2017 Comp Metabolic Joo244 Cr eat 1.0 mg/dL 01/25/2017 Comp Metabolic Bxb761 eG FR 57 ml/min/1.73m2 01/25 Comp Metabolic Xiu611 BUN 25 mg/dL 01/25/2017 Comp Metabolic Odx273 B/ C Ratio 25.0 Ratio 01/25/2017 Comp Metabolic Flp954 CA LCIUM 8.5 mg/dL 01/25/2017 Comp Metabolic Pax075 AL K PHOS 81 U/L 01/25/2017 Comp Metabolic Hpn008 T(SGOT) 19 U/L 01/25/2017 Comp Metabolic Erb417 AL T(SGPT) 23 U/L 01/25/2017 Comp Metabolic Pix873 BI LI T 0.5 mg/dL 01/25/2017 Comp Metabolic Set534 AL BUMIN 2.9 g/dL 01/25/2017 Comp Metabolic Ske905 TP RO 5.1 g/dL 01/25/2017 Comp Metabolic Ywu901 GL OB 2.2 g/dL 01/25/2017 Comp Metabolic Uml854 A/ G Ratio 1.3 Ratio 01/25/2017 Comp Metabolic Osc220 Os mo 288 mOsmo 01/25/2017 Cbc With [...] 30.7 pg 01/25/2017 Cbc With Differential Ord2 [place]% 8.2 % 01/25/2017 Cbc With Differential Ord2 [...] 3.10 K/ul 01/25/2017 Cbc With Differential Ord2 [place] ABS# 0.8 K/ul 01/25/2017 Cbc With Differential Ord2 Eos ABS# 0.4 K/ul 01/25/2017 Cbc With Differential Ord2 Baso ABS# 0.1 K/ul 01/25/2017 Free T4 Ncv325 FREE T4 2.09 ng/dL 01/25/2017 Tsh Ord6 hTSH II 0.46 uIU/mL 01/25/2017 Pt Iit9866 PT 26.1 seconds 11/26/2016 Pt Hwj8815 INR 2.6 11/26/2016 Pt Qmt7104 Low Intensity - 1.5-2.0 11/26/2016 Pt Xle3389 Mod intensity - 2.0-3.0 11/26/2016 Pt Emt3568 Hi intensity - 3.0-4.0 11/26/2016 Pt Mst0034 PT 26.2 seconds 10/29/2016 Pt Tvc8989 INR 2.6 10/29/2016 Pt Oin6444 Low Intensity - 1.5-2.0 10/29/2016 Pt Orr2259 Mod intensity - 2.0-3.0 10/29/2016 Pt Sju8617 Hi intensity - 3.0-4.0 10/29/2016 Pt Aoe8610 PT 20.8 seconds 10/13/2016 Pt Qes8497 INR 1.9 10/13/2016 Pt Xrw3773 Low Intensity - 1.5-2.0 10/13/2016 Pt Zdc4717 Mod intensity - 2.0-3.0 10/13/2016 Pt Zhj9421 Hi intensity - 3.0-4.0 10/13/2016 Pt Oem5034 PT 26.5 seconds 10/01/2016 Pt Eho1500 INR 2.6 10/01/2016 Pt Cdi8845 Low Intensity - 1.5-2.0 10/01/2016 Pt Rwo5266 Mod intensity - 2.0-3.0 10/01/2016 Pt Tzi6586 Hi intensity - 3.0-4.0 10/01/2016 Pt Pmq8570 PT 24.6 seconds 09/14/2016 Pt Doj7775 INR 2.4 09/14/2016 Pt Cub4571 Low Intensity - 1.5-2.0 09/14/2016 Pt Idq1999 Mod intensity - 2.0-3.0 09/14/2016 Pt Ocn0560 Hi intensity - 3.0-4.0 09/14/2016 Pt Nbe3776 PT 18.0 seconds 09/07/2016 Pt Lpn1573 INR 1.6 09/07/2016 Pt Ppb4513 Low Intensity - 1.5-2.0 09/07/2016 Pt Ned9773 Mod intensity - 2.0-3.0 09/07/2016 Pt Xcv7079 Hi intensity - 3.0-4.0 09/07/2016 Pt Mmk0019 PT 23.7 seconds 08/12/2016 Pt Lok6162 INR 2.2 08/12/2016 Pt Wpj2163 Low Intensity - 1.5-2.0 08/12/2016 Pt Zik7058 Mod intensity - 2.0-3.0 08/12/2016 Pt Xhd7258 Hi intensity - 3.0-4.0 08/12/2016 Pt Izu3764 PT 21.6 seconds 07/27/2016 Pt Zik9323 INR 2.0 07/27/2016 Pt Fns9731 Low Intensity - 1.5-2.0 07/27/2016 Pt Dhl6776 Mod intensity - 2.0-3.0 07/27/2016 Pt Hvj7018 Hi intensity - 3.0-4.0 07/27/2016 Pt Wgm2467 PT 26.0 seconds 06/15/2016 Pt Yce1747 INR 2.5 06/15/2016 Pt Ukd2747 Low Intensity - 1.5-2.0 06/15/2016 Pt Qkp2719 Mod intensity - 2.0-3.0 06/15/2016 Pt Knf6084 Hi intensity - 3.0-4.0 06/15/2016 Pt Uce8253 PT 18.8 seconds 06/01/2016 Pt Een4296 INR 1.7 06/01/2016 Pt Wen7383 Low Intensity - 1.5-2.0 06/01/2016 Pt Str2124 Mod intensity - 2.0-3.0 06/01/2016 Pt Por9822 Hi intensity - 3.0-4.0 06/01/2016 Pt Zuo6136 PT 20.8 seconds 05/12/2016 Pt Xai2846 INR 1.9 05/12/2016 Pt Mjd8173 Low Intensity - 1.5-2.0 05/12/2016 Pt Tdi4121 Mod intensity - 2.0-3.0 05/12/2016 Pt Nro0664 Hi intensity - 3.0-4.0 05/12/2016 Pt Yet4528 PT 24.5 seconds 04/10/2016 Pt Ryi6739 INR 2.4 04/10/2016 Pt Fkr2782 Low Intensity - 1.5-2.0 04/10/2016 Pt Ffs5540 Mod intensity - 2.0-3.0 04/10/2016 Pt Zfh6914 Hi intensity - 3.0-4.0 04/10/2016 Pt Ign8951 PT 26.4 seconds 03/10/2016 Pt Hel3936 INR 2.6 03/10/2016 Pt Era4651 Low Intensity - 1.5-2.0 03/10/2016 Pt Qfg1749 Mod intensity - 2.0-3.0 03/10/2016 Pt Qhb7354 Hi intensity - 3.0-4.0 03/10/2016 Pt Mrd5378 PT 24.9 seconds 03/06/2016 Pt Mah0263 INR 2.4 03/06/2016 Pt Dkh3782 Low Intensity - 1.5-2.0 03/06/2016 Pt Wms4791 Mod intensity - 2.0-3.0 03/06/2016 Pt Agi8678 Hi intensity - 3.0-4.0 03/06/2016 Pt Hrn4205 PT 21.9 seconds 02/25/2016 Pt Nbc3443 INR 2.0 02/25/2016 Pt Btt9311 Low Intensity - 1.5-2.0 02/25/2016 Pt Nls2069 Mod intensity - 2.0-3.0 02/25/2016 Pt Tqc2834 Hi intensity - 3.0-4.0 02/25/2016 Pt Esf2585 PT 21.8 seconds 02/21/2016 Pt Mom1975 INR 2.0 02/21/2016 Pt Bts7722 Low Intensity - 1.5-2.0 02/21/2016 Pt Hyv3629 Mod intensity - 2.0-3.0 02/21/2016 Pt Drf2752 Hi intensity - 3.0-4.0 02/21/2016 Culture Urine [id number] URI NE CULTURE SEE NOTES 02/20/2016 Culture Urine [id number] Con tinued Results 02/20/2016 Urine Culture Ucult [...] 29.2 pg 02/14/2016 Cbc With Differential Ord2 [place]% 9.3 % 02/14/2016 Cbc With Differential Ord2 [...] 2.55 K/ul 02/14/2016 Cbc With Differential Ord2 [place] ABS# 0.8 K/ul 02/14/2016 Cbc With Differential Ord2 Eos ABS# 0.4 K/ul 02/14/2016 Cbc With Differential Ord2 Baso ABS# 0.1 K/ul 02/14/2016 Tsh Ord6 hTSH II 0.80 uIU/mL 02/14/2016 Pt Wyc1420 PT 27.1 seconds 02/14/2016 Pt Hqy7211 INR 2.7 02/14/2016 Pt Ztm7708 Low Intensity - 1.5-2.0 02/14/2016 Pt Zyh9307 Mod intensity - 2.0-3.0 02/14/2016 Pt Tdl0628 Hi intensity - 3.0-4.0 02/14/2016 Free T4 Oos449 FREE T4 1.87 ng/dL 02/14/2016 Comp Metabolic Xmj692 NA 139 mEq/L 02/14/2016 Comp Metabolic Nct755 K 3.8 mEq/L 02/14/2016 Comp Metabolic Pdg405 CL 103 mEq/L 02/14/2016 Comp Metabolic Ere205 CO2 27.0 mEq/L 02/14/2016 Comp Metabolic Apn117 AN ION GAP 13 02/14/2016 Comp Metabolic Zhl703 GL UCOSE 91 mg/dL 02/14/2016 Comp Metabolic Ucx952 Cr eat 1.0 mg/dL 02/14/2016 Comp Metabolic Iva331 eG FR 58 ml/min/1.73m2 02/13 Comp Metabolic Ppw812 BUN 16 mg/dL 02/14/2016 Comp Metabolic Eiz845 B/ C Ratio 16.2 Ratio 02/14/2016 Comp Metabolic Cut862 CA LCIUM 9.0 mg/dL 02/14/2016 Comp Metabolic Qel078 AL K PHOS 88 U/L 02/14/2016 Comp Metabolic Lff101 T(SGOT) 17 U/L 02/14/2016 Comp Metabolic Pbf833 AL T(SGPT) 12 U/L 02/14/2016 Comp Metabolic Sbu465 BI LI T 0.6 mg/dL 02/14/2016 Comp Metabolic Aac216 AL BUMIN 3.2 g/dL 02/14/2016 Comp Metabolic Agq895 TP RO 5.8 g/dL 02/14/2016 Comp Metabolic Yba202 GL OB 2.6 g/dL 02/14/2016 Comp Metabolic Iru606 A/ G Ratio 1.3 Ratio 02/14/2016 Comp Metabolic Fwx561 Os mo 278 mOsmo 02/14/2016 Pt Pcz7430 PT 34.6 seconds 02/06/2016 Pt Pdn9089 INR 3.7 02/06/2016 Pt Ugv9672 Low Intensity - 1.5-2.0 02/06/2016 Pt Psn8393 Mod intensity - 2.0-3.0 02/06/2016 Pt Tgi8988 Hi intensity - 3.0-4.0 02/06/2016 Pt Ajh7394 PT 33.3 seconds 01/23/2016 Pt Kww0357 INR 3.5 01/23/2016 Pt Qws1204 Low Intensity - 1.5-2.0 01/23/2016 Pt Ncn7434 Mod intensity - 2.0-3.0 01/23/2016 Pt Asw3670 Hi intensity - 3.0-4.0 01/23/2016 Pt Gcj9133 PT 30.5 seconds 12/31/2015 Pt Jzl0776 INR 3.2 12/31/2015 Pt Pfw9860 Low Intensity - 1.5-2.0 12/31/2015 Pt Oeq0465 Mod intensity - 2.0-3.0 12/31/2015 Pt Gph6391 Hi intensity - 3.0-4.0 12/31/2015 Pt Blp3410 PT 35.6 seconds 12/25/2015 Pt Gye0174 INR 3.9 12/25/2015 Pt Xai2765 Low Intensity - 1.5-2.0 12/25/2015 Pt Ffs6431 Mod intensity - 2.0-3.0 12/25/2015 Pt Jkn2676 Hi intensity - 3.0-4.0 12/25/2015 Pt Rfh7117 PT 30.8 seconds 11/21/2015 Pt Oow1391 INR 3.2 11/21/2015 Pt Fzw4008 Low Intensity - 1.5-2.0 11/21/2015 Pt Ssf5620 Mod intensity - 2.0-3.0 11/21/2015 Pt Cvs0335 Hi intensity - 3.0-4.0 11/21/2015 Uric Acid [...] 30.0 pg 11/20/2015 Cbc With Differential Ord2 [place]% 8.1 % 11/20/2015 Cbc With Differential Ord2 [...] 2.51 K/ul 11/20/2015 Cbc With Differential Ord2 [place] ABS# 0.9 K/ul 11/20/2015 Cbc With Differential Ord2 Eos ABS# 0.3 K/ul 11/20/2015 Cbc With Differential Ord2 Baso ABS# 0.0 K/ul 11/20/2015 Comp Metabolic Nnb807 NA 137 mEq/L 10/22/2015 Comp Metabolic Hhz394 K 3.9 mEq/L 10/22/2015 Comp Metabolic Kxc508 CL 100 mEq/L 10/22/2015 Comp Metabolic Ydf520 CO2 31.0 mEq/L 10/22/2015 Comp Metabolic Kgf425 AN ION GAP 10 10/22/2015 Comp Metabolic Oiz824 GL UCOSE 94 mg/dL 10/22/2015 Comp Metabolic Vmk556 Cr eat 1.0 mg/dL 10/22/2015 Comp Metabolic Itf437 eG FR 55 ml/min/1.73m2 10/21 Comp Metabolic Cpj323 BUN 19 mg/dL 10/22/2015 Comp Metabolic Pdp499 B/ C Ratio 18.3 Ratio 10/22/2015 Comp Metabolic Uku581 CA LCIUM 8.8 mg/dL 10/22/2015 Comp Metabolic Gew240 AL K PHOS 83 U/L 10/22/2015 Comp Metabolic Sip151 T(SGOT) 15 U/L 10/22/2015 Comp Metabolic Jbl161 AL T(SGPT) 13 U/L 10/22/2015 Comp Metabolic Elf342 BI LI T 0.9 mg/dL 10/22/2015 Comp Metabolic Uui287 AL BUMIN 2.8 g/dL 10/22/2015 Comp Metabolic Mhu153 TP RO 5.4 g/dL 10/22/2015 Comp Metabolic Dfs089 GL OB 2.6 g/dL 10/22/2015 Comp Metabolic Dto020 A/ G Ratio 1.1 Ratio 10/22/2015 Comp Metabolic Rit635 Os mo 276 mOsmo 10/22/2015 Bili D Ord93 BILI D 0.1 mg/dL 10/22/2015 Bili D Ord93 BILI I 0.8 mg/dL 10/22/2015 Pt Cdc4324 PT 22.8 seconds 10/22/2015 Pt Dpj4888 INR 2.1 10/22/2015 Pt Fht4750 Low Intensity - 1.5-2.0 10/22/2015 Pt Zpm5381 Mod intensity - 2.0-3.0 10/22/2015 Pt Tde0223 Hi intensity - 3.0-4.0 10/22/2015 Pt Eqk3325 PT 28.0 seconds 09/16/2015 Pt Lqm6207 INR 2.7 09/16/2015 Pt Nmd8564 Low Intensity - 1.5-2.0 09/16/2015 Pt Kpm1652 Mod intensity - 2.0-3.0 09/16/2015 Pt Qdh1322 Hi intensity - 3.0-4.0 09/16/2015 Tsh Ord6 hTSH II 1.40 uIU/mL 09/16/2015 Free T4 Zvv560 FREE T4 1.73 ng/dL 09/16/2015 Lipid Ord30 CHOL 169 mg/dL 09/16/2015 Lipid Ord30 HDL 66.0 mg/dl 09/16/2015 Lipid Ord30 TRIG 78 mg/dL 09/16/2015 Lipid Ord30 LDL 87 mg/dL 09/16/2015 Lipid Ord30 C/HDL 2.6 Ratio 09/16/2015 Pt Ltm5840 PT 26.6 seconds 08/21/2015 Pt Gmf2011 INR 2.6 08/21/2015 Pt Rlz0485 Low Intensity - 1.5-2.0 08/21/2015 Pt Txe6065 Mod intensity - 2.0-3.0 08/21/2015 Pt Fcz9737 Hi intensity - 3.0-4.0 08/21/2015 Comp Metabolic Hyr673 NA 141 mEq/L 08/08/2015 Comp Metabolic Uro814 K 3.3 mEq/L 08/08/2015 Comp Metabolic Xiq430 CL 102 mEq/L 08/08/2015 Comp Metabolic Chf179 CO2 31.0 mEq/L 08/08/2015 Comp Metabolic Neb775 AN ION GAP 11 08/08/2015 Comp Metabolic Dij089 GL UCOSE 83 mg/dL 08/08/2015 Comp Metabolic Ahn375 Cr eat 1.0 mg/dL 08/08/2015 Comp Metabolic Eot462 eG FR 55 ml/min/1.73m2 08/08 Comp Metabolic Miz352 BUN 19 mg/dL 08/08/2015 Comp Metabolic Fjf539 B/ C Ratio 18.3 Ratio 08/08/2015 Comp Metabolic Yxt832 CA LCIUM 8.9 mg/dL 08/08/2015 Comp Metabolic Jeg878 AL K PHOS 84 U/L 08/08/2015 Comp Metabolic Yqc515 T(SGOT) 20 U/L 08/08/2015 Comp Metabolic Zcd992 AL T(SGPT) 18 U/L 08/08/2015 Comp Metabolic Fwx820 BI LI T 0.6 mg/dL 08/08/2015 Comp Metabolic Bjx535 AL BUMIN 3.3 g/dL 08/08/2015 Comp Metabolic Aiv077 TP RO 5.9 g/dL 08/08/2015 Comp Metabolic Xms464 GL OB 2.6 g/dL 08/08/2015 Comp Metabolic Bhr186 A/ G Ratio 1.3 Ratio 08/08/2015 Comp Metabolic Jpl140 Os mo 283 mOsmo 08/08/2015 Cbc With [...] 30.0 pg 08/08/2015 Cbc With Differential Ord2 [place]% 8.2 % 08/08/2015 Cbc With Differential Ord2 [...] 2.90 K/ul 08/08/2015 Cbc With Differential Ord2 [place] ABS# 0.9 K/ul 08/08/2015 Cbc With Differential [...] Ord93 BILI I 0.5 mg/dL 08/08/2015 Pt Dbb2334 PT 31.8 seconds 08/05/2015 Pt Nai3005 INR 3.2 08/05/2015 Pt Yng1241 Low Intensity - 1.5-2.0 08/05/2015 Pt Prm7239 Mod intensity - 2.0-3.0 08/05/2015 Pt Loy8277 Hi intensity - 3.0-4.0 08/05/2015 Pt Lvs1556 PT 27.4 seconds 06/27/2015 Pt Bmw0405 INR 2.6 06/27/2015 Pt Npe4659 Low Intensity - 1.5-2.0 06/27/2015 Pt Alt9472 Mod intensity - 2.0-3.0 06/27/2015 Pt Ejj0202 Hi intensity - 3.0-4.0 06/27/2015 Tsh Ord6 [...] Ord2 RDW 15.1 % 05/31/2015 Free T4 Vmv331 FREE T4 1.89 ng/dL 05/31/2015 Comp Metabolic Gda594 NA 140 mEq/L 05/31/2015 Comp Metabolic Yjb743 K 3.3 mEq/L 05/31/2015 Comp Metabolic Zsp063 CL 99 mEq/L 05/31/2015 Comp Metabolic Ock853 CO2 30.0 mEq/L 05/31/2015 Comp Metabolic Xbn802 AN ION GAP 14 05/31/2015 Comp Metabolic Afo711 GL UCOSE 70 mg/dL 05/31/2015 Comp Metabolic Pcj674 Cr eat 1.0 mg/dL 05/31/2015 Comp Metabolic Kdf836 eG FR 55 ml/min/1.73m2 05/31 Comp Metabolic Uuz636 BUN 23 mg/dL 05/31/2015 Comp Metabolic Igz417 B/ C Ratio 22.1 Ratio 05/31/2015 Comp Metabolic Qxb053 CA LCIUM 8.9 mg/dL 05/31/2015 Comp Metabolic Dxv435 AL K PHOS 86 U/L 05/31/2015 Comp Metabolic Kcz543 T(SGOT) 28 U/L 05/31/2015 Comp Metabolic Wim555 AL T(SGPT) 30 U/L 05/31/2015 Comp Metabolic Qza128 BI LI T 0.4 mg/dL 05/31/2015 Comp Metabolic Him095 AL BUMIN 3.3 g/dL 05/31/2015 Comp Metabolic Ppw733 TP RO 6.0 g/dL 05/31/2015 Comp Metabolic Rzl961 GL OB 2.7 g/dL 05/31/2015 Comp Metabolic Wzq102 A/ G Ratio 1.2 Ratio 05/31/2015 Comp Metabolic Lzv275 Os mo 282 mOsmo 05/31/2015 Pt Ofq9502 PT 23.3 seconds 04/15/2015 Pt Cqi2344 INR 2.2 04/15/2015 Pt Kjm3047 Low Intensity - 1.5-2.0 04/15/2015 Pt Wkx3226 Mod intensity - 2.0-3.0 04/15/2015 Pt Jcz4227 Hi intensity - 3.0-4.0 04/15/2015 Pt Vdz8053 PT 19.5 seconds 04/04/2015 Pt Wex3831 INR 1.7 04/04/2015 Pt Cef1522 Low Intensity - 1.5-2.0 04/04/2015 Pt Vkr3155 Mod intensity - 2.0-3.0 04/04/2015 Pt Vdl8399 Hi intensity - 3.0-4.0 04/04/2015 Pt Zqd7796 PT 39.8 seconds 04/01/2015 Pt Mox4146 INR 4.3 04/01/2015 Pt Mar9273 Low Intensity - 1.5-2.0 04/01/2015 Pt Kwf4912 Mod intensity - 2.0-3.0 04/01/2015 Pt Utb8977 Hi intensity - 3.0-4.0 04/01/2015 Metabolic Ord15 [...] Metabolic Ord15 CALCIUM 8.7 mg/dL 02/28/2015 Pt Dgl6086 PT 31.4 seconds 02/28/2015 Pt Iey8349 INR 3.2 02/28/2015 Pt Mcl2628 Low Intensity - 1.5-2.0 02/28/2015 Pt Cpp1383 Mod intensity - 2.0-3.0 02/28/2015 Pt Uxa1045 Hi intensity - 3.0-4.0 02/28/2015 Pt Keo5228 PT 23.2 seconds 01/18/2015 Pt Wdk9181 INR 2.1 01/18/2015 Pt Puv5602 Low Intensity - 1.5-2.0 01/18/2015 Pt Lvm2684 Mod intensity - 2.0-3.0 01/18/2015 Pt Mkc9816 Hi intensity - 3.0-4.0 01/18/2015 Pt Xye5698 PT 18.2 seconds 01/10/2015 Pt Gba3770 INR 1.6 01/10/2015 Pt Gns7938 Low Intensity - 1.5-2.0 01/10/2015 Pt Kqq2720 Mod intensity - 2.0-3.0 01/10/2015 Pt Hto4232 Hi intensity - 3.0-4.0 01/10/2015 Review of Systems System Result Effective Dates Constitutional recent illness 08/16/2018 Constitutional No anorexia [...] 03/24/2018 ADMIN PNEUMOCOCCAL V ACCINE SNOMED CT: 44116977 CPT-4: G0009 03/24/2018 FLU VACC PRSV FREE I NC ANTIG Formatting Model/CDA Sections, Assigned to/Dorothea Tan CPT-4: 37250Dqzevsf 03/24/2018 Pneumococcal Polysac charide Vaccine, 23-Valent, Ad CPT-4: 92762 03/24/2018 TRIAMCINOLONE ACET I [place] NOS CPT-4: J3301 06/15/2017 THER/PROPH/DIAG INJ SC/IM CPT-4: 59173 06/15/2017 ADMIN PNEUMOCOCCAL V ACCINE SNOMED CT: 85917411 CPT-4: G0009 03/16/2017 ADMIN INFLUENZA VIRU S VAC CPT-4: G0008 03/16/2017 FLU VAC NO PRSV 4 VA L 3 YRS+ CPT-4: 66398 03/16/2017 PNEUMOCOCCAL VACC [address]: 76471137 CPT-4: 40863 03/16/2017 URINALYSIS NONAUTO W /O SCOPE CPT-4: 54452 08/26/2016 THER/PROPH/DIAG INJ SC/IM CPT-4: 30919 07/22/2016 TRIAMCINOLONE ACET I [place] NOS CPT-4: J3301 07/22/2016 ROCEPHIN, PER 250 MG CPT-4: J0696 07/22/2016 TRIAMCINOLONE ACET I [place] NOS CPT-4: J3301 02/05/2015 Vital Signs Date Vital 08/16/2018 Blood Pressure 1: 104/66 Code: 8480-6 BMI: 32.3 Code: 97224-5 Heart Rate 1: 94 bpm Height: 5'7" SpO2: 96% Weight: 206 lbs 07/11/2018 Blood Pressure 1: 102/68 Code: 8480-6 BMI: 34.5 Code: 39044-2 Heart Rate 1: 101 bpm Height: 5'7" SpO2: 98% Weight: 220 lbs 03/24/2018 Blood Pressure 1: 130/72 Code: 8480-6 BMI: 33.4 Code: 75279-7 Heart Rate 1: 82 bpm Height: 5'7" SpO2: 93% Weight: 213 lbs 11/18/2017 Blood Pressure 1: 128/70 Code: 8480-6 BMI: 33.6 Code: 41070-9 Heart Rate 1: 98 bpm Height: 5'7" SpO2: 97% Weight: 214 lbs 8 oz 09/30/2017 Blood Pressure 1: 100/50 Code: 8480-6 BMI: 34.0 Code: 72547-9 Heart Rate 1: 66 bpm Height: 5'7" SpO2: 96% Weight: 217 lbs 08/17/2017 Blood Pressure 1: 104/60 Code: 8480-6 BMI: 33.7 Code: 63619-9 Heart Rate 1: 99 bpm Height: 5'7" SpO2: 97% Weight: 215 lbs 06/15/2017 Blood Pressure 1: 120/64 Code: 8480-6 BMI: 33.5 Code: 24624-1 Heart Rate 1: 91 bpm Height: 5'7" SpO2: 94% Weight: 214 lbs 04/01/2017 Blood Pressure 1: 110/68 Code: 8480-6 BMI: 154.4 Code: 68264-9 Heart Rate 1: 66 bpm Height: 2'7" SpO2: 95% Weight: 211 lbs 03/16/2017 Blood Pressure 1: 130/72 Code: 8480-6 BMI: 33.0 Code: 15672-9 Heart Rate 1: 95 bpm Height: 5'7" SpO2: 97% Weight: 211 lbs 02/09/2017 Blood Pressure 1: 120/70 Code: 8480-6 BMI: 32.9 Code: 39588-2 Heart Rate 1: 78 bpm Height: 5'7" SpO2: 96% Weight: 210 lbs 10/13/2016 Blood Pressure 1: 118/76 Code: 8480-6 BMI: 32.6 Code: 47512-6 Heart Rate 1: 97 bpm Height: 5'7" SpO2: 98% Weight: 208 lbs 07/31/2016 Blood Pressure 1: 110/64 Code: 8480-6 BMI: 32.1 Code: 44044-6 Heart Rate 1: 79 bpm Height: 5'7" SpO2: 94% Weight: 205 lbs 07/22/2016 Blood Pressure 1: 108/74 Code: 8480-6 BMI: 32.1 Code: 23695-1 Heart Rate 1: 71 bpm Height: 5'7" SpO2: 97% Temperature: 36.9 (C ) / 98.4 (F) Weight: 205 lbs 05/01/2016 Blood Pressure 1: 120/72 Code: 8480-6 BMI: 32.7 Code: 48410-2 Heart Rate 1: 75 bpm Height: 5'7" SpO2: 94% Weight: 209 lbs 04/06/2016 Blood Pressure 1: 106/62 Code: 8480-6 BMI: 32.7 Code: 54741-2 Heart Rate 1: 83 bpm Height: 5'7" SpO2: 97% Weight: 209 lbs 03/06/2016 Blood Pressure 1: 112/68 Code: 8480-6 BMI: 32.7 Code: 43987-8 Heart Rate 1: 90 bpm Height: 5'7" SpO2: 97% Weight: 209 lbs 03/03/2016 Blood Pressure 1: 120/62 Code: 8480-6 BMI: 32.7 Code: 90680-0 Heart Rate 1: 92 bpm Height: 5'7" SpO2: 98% Weight: 209 lbs 02/07/2016 Blood Pressure 1: 110/64 Code: 8480-6 BMI: 32.7 Code: 19525-1 Heart Rate 1: 87 bpm Height: 5'7" SpO2: 97% Weight: 209 lbs 12/13/2015 Blood Pressure 1: 110/64 Code: 8480-6 BMI: 33.5 Code: 30024-9 Heart Rate 1: 90 bpm Height: 5'7" SpO2: 97% Weight: 214 lbs 12/03/2015 Blood Pressure 1: 132/76 Code: 8480-6 BMI: 33.4 Code: 40083-2 Heart Rate 1: 82 bpm Height: 5'7" SpO2: 99% Weight: 213 lbs 11/20/2015 Blood Pressure 1: 108/68 Code: 8480-6 BMI: 32.4 Code: 41187-9 Heart Rate 1: 77 bpm Height: 5'7" SpO2: 97% Weight: 207 lbs 09/17/2015 Blood Pressure 1: 122/76 Code: 8480-6 BMI: 33.0 Code: 62881-4 Heart Rate 1: 91 bpm Height: 5'7" SpO2: 97% Weight: 211 lbs 05/31/2015 Blood Pressure 1: 128/82 Code: 8480-6 BMI: 33.4 Code: 03454-6 Heart Rate 1: 98 bpm Height: 5'7" SpO2: 99% Weight: 213 lbs 02/05/2015 Blood Pressure 1: 128/80 Code: 8480-6 BMI: 32.6 Code: 51173-5 Heart Rate 1: 86 bpm Height: 5'7" SpO2: 97% Weight: 208 lbs 11/20/2014 Blood Pressure 1: 128/90 Code: 8480-6 BMI: 30.9 Code: 71468-5 Heart Rate 1: 94 bpm Height: 5'7" Weight: 197 lbs Functional Status No Functional Status data History of Present Illness Symptom Name Status Resu lt Effective Date Notes Quality chronic 08/16/2018 None Quality primary hypert [...] ongoing 11/20/2015 None Hospital Follow Up _ [facility] er: fall 09/17/2015 None Hospital Follow [...] Findings Denies fever 05/31/2015 None 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 P ATIENT, LEVEL IV Diagnosis: Essential (primary) hypertension[ICD10: I10] Diagnosis: Atrophy of thyroid (acquired)[ICD10: E03.4] Diagnosis: Sebaceous cyst[ICD10: L72.3] Diagnosis: Chronic atrial fibrillation[ICD10: I48.2] Diagnosis: MCC (current) use of anticoagulants[ICD10: Z79.01] Valerie Pisano MD, [facility] CPT-4: 19527 08/16/2018 ([id number]) 54538 EST. P ATIENT, LEVEL IV Diagnosis: Atrophy of thyroid (acquired)[ICD10: E03.4] Diagnosis: Essential (primary) hypertension[ICD10: I10] Diagnosis: Other fatigue[ICD10: R53.83] Diagnosis: Localized edema[ICD10: R60.0] Valerie Pisano MD, [facility] CPT-4: 54940 07/11/2018 ([id number]) 98841 EST. P ATIENT, LEVEL IV Diagnosis: Essential (primary) hypertension[ICD10: I10] Diagnosis: Atrophy of thyroid (acquired)[ICD10: E03.4] Diagnosis: Chronic atrial fibrillation[ICD10: I48.2] Valerie Pisano MD, [facility] CPT-4: 88874 03/24/2018 ([id number]) 23977 EST. P ATIENT, LEVEL IV Diagnosis: Essential (primary) hypertension[ICD10: I10] Diagnosis: Atrophy of thyroid (acquired)[ICD10: E03.4] Diagnosis: Chronic atrial fibrillation[ICD10: I48.2] Valerie Pisano MD, [facility] CPT-4: 13872 11/18/2017 [id number] EST. PATIENT, LEVEL IV Diagnosis: Localized edema[ICD10: R60.0] Roxie Pisano MD, [facility] CPT-4: 68730 09/30/2017 ([id number]) [id number] EST. P ATIENT, LEVEL III Diagnosis: Essential (primary) hypertension[ICD10: I10] Valerie Pisano MD, [facility] CPT-4: 23979 08/17/2017 ([id number]) 25810 EST. P ATIENT, LEVEL IV Diagnosis: Essential (primary) hypertension[ICD10: I10] Diagnosis: Atrophy of thyroid (acquired)[ICD10: E03.4] Diagnosis: Chronic atrial fibrillation[ICD10: I48.2] Diagnosis: Cervicalgia[ICD10: M54.2] Diagnosis: Other muscle spasm[ICD10: M62.838] Valerie Pisano MD, [facility] CPT- 4: 15965 06/15/2017 [id number] EST. PATIENT, LEVEL III Diagnosis: Laceration without foreign body of other finger without damage to nail, initial encounter[ICD10: S61.218A] Roxie Pisano MD, [facility] CPT-4: 50733 04/01/2017 ([id number]) 41281 EST. 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 P ATIENT, LEVEL IV Diagnosis: Chronic atrial fibrillation[ICD10: I48.2] Diagnosis: Essential (primary) hypertension[ICD10: I10] Diagnosis: Other fatigue[ICD10: R53.83] Diagnosis: MCC (current) use of anticoagulants[ICD10: Z79.01] Diagnosis: Atrophy of thyroid (acquired)[ICD10: E03.4] Valerie Pisano MD, [facility] CPT-4: 53779 02/09/2017 ([id number]) 78925 EST. P ATIENT, LEVEL IV Diagnosis: Essential (primary) hypertension[ICD10: I10] Diagnosis: Chronic atrial fibrillation[ICD10: I48.2] Diagnosis: Tinea corporis[ICD10: B35.4] Diagnosis: MCC (current) use of anticoagulants[ICD10: Z79.01] Diagnosis: Other skin changes[ICD10: R23.8] Valerie Pisano MD, [facility] CPT-4: 96438 10/13/2016 91362 EST. PATIENT, LEVEL III Diagnosis: Other acute sinusitis[ICD10: J01.80] Diagnosis: Other allergic rhinitis[ICD10: J30.89] Roxie Pisano MD, [facility] CPT-4: 66415 07/31/2016 ([id number]) 87270 EST. P ATIENT, LEVEL III Diagnosis: Acute recurrent maxillary sinusitis[ICD10: J01.01] Valerie Pisano MD, C CPT-4: 10454 07/22/2016 01106 EST. PATIENT, LEVEL IV Diagnosis: Essential (primary) hypertension[ICD10: I10] Diagnosis: Other allergic rhinitis[ICD10: J30.89] Diagnosis: Localized edema[ICD10: R60.0] Roxie Pisano MD, [facility] CPT-4: 97895 05/01/2016 14734 EST. PATIENT, LEVEL III Diagnosis: Cellulitis of left lower limb[ICD10: L03.116] Diagnosis: Localized edema[ICD10: R60.0] Roxie Pisano MD, [facility] CPT-4: 73168 04/06/2016 ([id number]) Miscellaneou s no charge Diagnosis: Cellulitis of left lower limb[ICD10: L03.116] Diagnosis: Localized edema[ICD10: R60.0] Roxie Pisano MD, [facility] CPT-4: 98369 03/10/2016 ([id number]) Miscellaneou s no charge Diagnosis: Cellulitis of left lower limb[ICD10: L03.116] Roxie Pisano MD, [facility] CPT-4: 40924 03/06/2016 76411 EST. PATIENT, LEVEL IV Diagnosis: Cellulitis of left lower limb[ICD10: L03.116] Diagnosis: Localized edema[ICD10: R60.0] Roxie Pisano MD, [facility] CPT-4: 79298 03/03/2016 ([id number]) 62169 EST. P ATIENT, LEVEL III Diagnosis: Essential (primary) hypertension[ICD10: I10] Diagnosis: MCC (current) use of anticoagulants[ICD10: Z79.01] Diagnosis: Chronic atrial fibrillation[ICD10: I48.2] Brielle Pisano MD, [facility] CPT-4: 72744 02/07/2016 ([id number]) 50451 EST. P ATIENT, LEVEL III Diagnosis: Iliotibial band syndrome, right leg[ICD10: M76.31] Diagnosis: Localized edema[ICD10: R60.0] Brielle Pisano MD, [facility] CPT- 4: 08885 12/13/2015 ([id number]) 72791 EST. P ATIENT, LEVEL III Diagnosis: Localized edema[ICD10: R60.0] Diagnosis: Essential (primary) hypertension[ICD10: I10] Brielle Pisano MD, [facility] CPT-4: 65665 12/03/2015 ([id number]) 13585 EST. 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 PATIENT, LEVEL IV Diagnosis: Essential (primary) hypertension[ICD10: I10] Diagnosis: MCC (current) use of anticoagulants[ICD10: Z79.01] Diagnosis: Muscle spasm of back[ICD10: M62.830] [facility] CPT- 4: 83624 09/17/2015 ([id number]) 04254 EST. P ATIENT, LEVEL IV Diagnosis: Localized edema[ICD10: R60.0] Diagnosis: Other specified hypothyroidism[ICD10: E03.8] Diagnosis: Essential (primary) hypertension[ICD10: I10] [facility] CPT-4: 68771 05/31/2015 ([id number]) 49126 EST. P ATIENT, LEVEL III Diagnosis: ALLERGIC RHINITIS[ICD9: 477.9] Diagnosis: ESSENTIAL HYPERTENSION[ICD9: 401.9] [facility] CPT-4: 43520 02/05/2015 ([id number]) OFFICE [facility] - LEVEL 4 Diagnosis: ESSENTIAL HYPERTENSION[ICD9: 401.9] Diagnosis: HYPOTHYROIDISM[ICD9: 244.9] Diagnosis: ACTINIC KERATOSIS[ICD9: 702.0] Valerie Pisano MD, [facility] CPT-4: 60839 11/20/2014 Plan of Care Planned Activity Notes C odes Status Date Visit Plan: Hypertension - well con trofedeed [...] daily. 08/16/2018 Appointment: Valerie Pisano WPtel: [phone] [id number] (15 min) Moderate 08/16/2018 Patient Education: Patient Medication Summary Completed 08/16/2018 Patient Education: Hypertension Completed 08/16/2018 Patient Education: Patient Medication Summary Completed 07/29/2018 Appointment: Brielle Cavazos WPtel: [phone] [phone] (15 min) Moderate 07/12/2018 Visit Plan: [...] daily. 07/11/2018 Appointment: [phone] (15 min) Moderate 07/11/2018 Patient Education: Patient [...] today. 03/24/2018 Appointment: Valerie Pisano WPtel: [phone] [facility]66[facility] (15 min) Moderate 03/24/2018 Patient [...] of control. 11/18/2017 Appointment: Valerie Pisano WPtel: [address] [place], [place] [phone] (15 min) Moderate 11/18/2017 Patient Education: Patient Medication Summary Completed 11/18/2017 Referral: [facility] WPtel: 1 [facility] Pt notified at appointment Appointment [...] Boots 09/30/2017 Appointment: [phone] (30 min) Complex 09/30/2017 Patient Education: Patient Medication Summary Completed 09/30/2017 Care Plan: Referral Order SNOMED-CT : [id number] Pending 09/30/2017 Visit Plan: Hypertension - well [...] time. 08/17/2017 Appointment: Val[facility] Pis[phone] (15 min) Moderate 08/17/2017 Patient Education: Patient [...] - will refer to [facility] physical therapy. RX for voltaren to neck muscles. allergies - kenalog 40mg im bristol [employer] squibb - lot # [id number] expires september 2018 06/15/2017 Visit Plan: Hypertension [...] - will refer to [facility] physical therapy. RX for voltaren to neck muscles. 06/15/2017 Appointment: Valerie Pisano WPtel: [facility]3 [facility] (15 min) Moderate 06/15/2017 Patient Education: Patient Medication Summary Completed 06/15/2017 Care Plan: Referral Order SNOMED-CT : [id number] Pending 06/15/2017 Appointment: Nurse Visit 04/05/2017 Appointment: [...] tetanus booster. 04/01/2017 Appointment: Roxie Cazares WPtel: [facility]8 [facility] (15 min) Moderate 04/01/2017 Patient Education: [...] today 03/16/2017 Appointment: Valerie Pisano WPtel: [phone] [facility] (15 min) Moderate 03/16/2017 Patient Education: Patient [...] spray. 02/09/2017 Appointment: [phone] [place] (15 min) Moderate 02/09/2017 Patient Education: Patient [...] nystatin 10/13/2016 Appointment: [facility] P[phone] (15 min) Moderate 10/13/2016 Patient Education: Patient Medication Summary Completed 10/13/2016 Patient Education: Obesity Completed 10/13/2016 Patient Education: Hypertension Completed 10/13/2016 Care Plan: Urine Culture Pending 08/31/2016 Appointment: [phone] Lab Draw 08/27/2016 Appointment: Nurse Visit [...] spray. 07/31/2016 Appointment: Brielle Cavazos WPtel: [phone] [phone] (30 min) Complex 07/31/2016 Patient Education: Patient Medication Summary Completed 07/31/2016 Patient Education: Obesity Completed 07/31/2016 Visit Plan: Sinusitis - Pt has acut e infection - pain in face, maxillary region, Pt informed to use decongestant, RX given to patient, sinus rinses also recommended. Call if symptoms do not show improvement. 07/22/2016 Appointment: Val[facility] Pisano [facility]el[phone] (15 min) Moderate 07/22/2016 Patient Education: Patient [...] edema. 05/01/2016 Appointment: [facility]el[phone] (30 min) Complex 05/01/2016 Patient Education: [...] edema. 04/06/2016 Appointment: Roxie Cazares WPtel: [facility] (30 min) Complex 04/06/2016 Patient Education: Patient Medication Summary Completed 04/06/2016 Patient Education: Obesity Completed 04/06/2016 Visit Plan: left foot - improved - pt finished with antibiotics - continue to monitor - notify clinic with any concerns. Repeat INR today. 03/10/2016 Appointment: Brielle Cavazos WPtel: [facility]1 [phone] (30 min) Complex 03/10/2016 Patient Education: Patient Medication Summary Completed 03/10/2016 Visit Plan: Cellulitis - continue w ith oral antibiotics as previously directed, return to clinic as previously directed, call for acute change in symptoms, worsening redness, warmth, discharge. 03/06/2016 Appointment: Brielle Cavazos WPtel: [facility]5 [phone] (15 min) Moderate 03/06/2016 Patient Education: Patient Medication Summary Completed 03/06/2016 Patient Education: Obesity Completed 03/06/2016 Visit Plan: Cellulitis - continue w ith oral antibiotics as previously directed, return to clinic as previously directed, call for acute change in symptoms, worsening redness, warmth, discharge. 03/03/2016 Appointment: Brielle Cavazos WPtel: [facility]5 [phone] (15 min) Moderate 03/03/2016 Patient Education: [...] and 3.5. 02/07/2016 Appointment: Brielle Cavazos WPtel: [address] [place] [address] (30 min) Complex 02/07/2016 Patient Education: Patient Medication Summary Completed 02/07/2016 Patient Education: Obesity Completed 02/07/2016 Patient Education: Hypertension Completed 02/07/2016 Appointment: Brielle Cavazos WPtel: [address] [place] [address] (30 min) Complex 02/04/2016 Visit Plan: Iliotibial [...] peripheral edema. 12/13/2015 Appointment: Brielle Cavazos WPtel: [address] [place] [address] (15 min) Moderate 12/13/2015 Patient Education: Patient [...] at home. 12/03/2015 Appointment: Brielle Cavazos WPtel: [phone] (30 min) Complex 12/03/2015 Patient Education: [...] Completed 02/05/2015 Appointment: Valerie Pisano WPtel: [facility] (15 min) Moderate 01/29/2015 Visit Plan: Hypertension [...] control. 11/20/2014 Appointment: Valerie Pisano WPtel: [phone] [place] [place] New Patient 11/20/2014 Patient Education: Patient Medication Summary Completed 11/20/2014 Patient Education: Hypertension Completed 11/20/2014 Patient Education: Patient Medication Summary Completed 10/19/2014 Referral: [facility] WPtel: Referral Appointment Requested Referral: [facility] Ref[facility] Appointment Confirmed Instructions Comment . [...] the office. get blood work one w false pass before next appt - fasting labs Decrease [...] - will refer to [facility] physical therapy. RX for voltaren to neck muscles. allergies - kenalog 40mg im bristol [employer] squibb - lot # [id number] expires september 2018 . Hypertension - wel [...] - will refer to [facility] physical therapy. RX for voltaren to [...] to further attempt to reduce peripheral edema. LASIX TAKE 40MG IN T HE MORNING [...] attempt to reduce peripheral edema. [place] [facility] [place] or david while on the [...]
--- OUTSIDE RECORDS SUMMARY | 2019-09-12 11:33 | XMS REPORT | CCD ---
Author Author Clara Pisano Organization [facility] Address [address] [place] [address] Phone Care Team Providers Care Machine Fancy Stitcher Name Role Phone PP Unavailable CCM Unavailable Summary Purpose Interface Exchange Insurance Providers Payer name Policy type / Coverage type Covered green party ID Effective Begin Date Effective End Date WPS Medicare Part B Medicare Part B [id number] 2018 Unknown [employer] Medicare Part B [id number] Unknown Family history Sister Diagnosis Age At Onset defect Unknown Breast cancer Unknown Daughter Diagnosis Age At Onset Breast cancer Unknown Mother Diagnosis Age At Onset No Family Disease Entered N/A Social History Social History Element Codes Description Effective Dates Marital status Unknown M arried Lane 11/20/2014 Number of children Unknown 6 11/20/2014 Employment Unknown Retir ed 11/20/[address]: 9693227 Quit over 10 years ago 1963 11/20/2014 [...] ICD-9: 401.9 ICD-10: I10 Active 04/30/2016 Unknown 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-9: 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.61 ICD-10: [...] Unknown HYPOTHYROIDISM ICD-9: 244.9 Active 11/19/2014 Unknown FPC current us e of anticoagulant therapy ICD-9: V58.61 Active 10/19/2014 Unknown Problems Condition Codes Effectiv e Dates Condition Status Atrophy of thyroid ( acquired) ICD-9: 244.8 ICD-10: E03.4 02/09/2017 Active Chronic atrial fibri llation ICD-9: 427.31 ICD-10: I48.2 02/06/2016 Active Essential (primary) hypertension ICD-9: 401.9 ICD-10: I10 04/30/2016 Active FPC (current) use of anticoagulants ICD-9: V58.61 ICD-10: [...] 11/19/2014 Active HYPOTHYROIDISM ICD-9: 244.9 11/19/2014 Active FPC current us e of anticoagulant therapy ICD-9: V58.61 10/19/2014 Active Medications Medication Codes Instruc tions Start Date Stop Date Sta Fill Instructions Coumadin 4 mg tablet RxNorm: 415114 1 Tablet(s) PO daily 08/16/2018 08/10/2019 Active this is an update to her RX - she will l et you know when she needs refill triamcinolone aceton sreekanth 0.025 % topical cream RxNorm: 3958899 1 Application TOP QI D 08/16/2018 No Stop Date Active levothyroxine 125 mc g tablet RxNorm: 762347 TAKE ONE TABLET BY [facility] DAILY ON WEDNESDAY, WED, AND WEDNESDAY, AND 1/2 TABLET ON , , WED AND WEDNESDAY. TAKE ON AN EMPTY STOMACH 08/04/2018 04/30/2019 Active meclizine 25 mg tablet RxNorm: 720442 1 Tablet(s) PO TID as needed Dizziness 07/22/2018 No Stop Date Active meclizine 25 mg tablet RxNorm: 091583 1 Tablet(s) PO TID as needed Dizziness 07/19/2018 07/21/2018 In active furosemide 40 mg tablet RxNorm: 212185 1 Tablet(s) BID take 1.5 tabs twice a da y x 7 days then 1 pill daily thereafter 07/11/2018 02/05/2019 Active Coumadin 4 mg tablet RxNorm: 386418 1 Tablet(s) PO daily except 1.5 pills on WEDNESDAY AND Wednesday07/11/2018 08/15/2018 Inactive this is an update to her RX - she will let you know when she needs refill warfarin 5 mg tablet RxNorm: 655942 Tablet(s) TAKE ONE TABLET BY MOUTH DAILY EXCEPT / TAKE 4 MG 04/06/2018 08/22/2019 Active diltiazem 60 mg tablet RxNorm: 093195 1/2 Tablet(s) PO QID 03/24/2018 No Stop Date Active levothyroxine 125 mc g tablet RxNorm: 077908 TAKE ONE TABLET BY [facility] DAILY ON WEDNESDAY, WED, AND WEDNESDAY, AND 1/2 TABLET ON , , WED AND WEDNESDAY. TAKE ON AN EMPTY STOMACH 02/02/2018 07/31/2018 Inactive Coumadin 4 mg tablet RxNorm: 124146 TAKE ONE TABLET BY MOUTH DAILY ON AND Wednesday10/14/2017 07/10/2018 Inactive nystatin 100,000 uni t/gram topical cream RxNorm: 058502 1 Application TOP TID 08/17/2017 No Stop Date Active Voltaren 1 % topical gel RxNorm: 748378 2 Gram(s) TOP TID luiz ly to shoulder and neck 08/17/2017 No Stop Date Active triamcinolone aceton sreekanth 0.025 % topical cream RxNorm: 8780203 1 Application TOP BI D 08/17/2017 08/15/2018 In active levothyroxine 125 mc g tablet RxNorm: 414042 1 Tablet(s) UD 1 pill wed/wed/wed, 1/2 pill //wed/wed take ON AN EMPTY STOMACH 08/05/2017 02/01/2018 Inactive Coumadin 4 mg tablet RxNorm: 258595 1 Tablet(s) PO Wed/07/29/2017 10/13/2017 Inactive warfarin 5 mg tablet RxNorm: 256199 TAKE 1 AND 1/2 TABLETS BY MOUTH ON AND WEDNESDAY. TAKE ONLY 1 TABLET BY MOUTH ALL OTHER DAYS OF THE WEEK 07/12/2017 04/05/2018 In active furosemide 40 mg tablet RxNorm: 339380 Tablet(s) BID TAKE ONE TABLET BY MOUTH D AILY 06/15/2017 07/10/2018 Inactive Voltaren 1 % topical gel RxNorm: 843687 2 Gram(s) TOP TID luiz ly to shoulder and neck 06/15/2017 08/16/2017 Inactive Keflex 500 mg capsule RxNorm: 761870 1 Capsule(s) PO TID 04/01/2017 04/07/2017 Inactive furosemide 40 mg tablet RxNorm: 116773 TAKE ONE TABLET BY MOUTH DAILY 03/18/2017 06/14/2017 In active Claritin-D 12 Hour 5 mg-120 mg tablet,extended release RxNorm: 0119350 1 Tablet(s) PO BID 03/16/2017 05/14/2017 Inactive Lipitor 20 mg tablet RxNorm: 020073 1 Tablet(s) PO daily 02/09/2017 03/10/2017 Inactive lisinopril 2.5 mg ta blet RxNorm: 001324 1 Tablet(s) PO daily 02/09/2017 03/10/2017 Inactive Nasonex 50 mcg/actua tion [place] RxNorm: 3085030 1 [place] NASAL BID 02/09/2017 09/06/2017 Inactive levothyroxine 125 mc g tablet RxNorm: 745861 1 Tablet(s) UD 1 pill wed/wed/wed, 1/2 pill //wed/sun take ON AN EMPTY STOMACH 02/09/2017 08/04/2017 Inactive fluorouracil 5 % top ical cream RxNorm: 242678 1 Application TOP BID 02/09/2017 02/18/2017 Inactive potassium chloride E R 20 mEq tablet,extended release RxNorm: 904924 Tablet(s) TAKE ONE TABLET BY MOUTH DAILY 02/08/2017 02/02/2018 Inactive warfarin 5 mg tablet RxNorm: 641649 TAKE 1 AND 1/2 TABLETS BY MOUTH ON AND WEDNESDAY. TAKE ONLY 1 TABLET BY MOUTH ALL OTHER DAYS OF THE WEEK 12/14/2016 05/30/2017 In active potassium chloride E R 20 mEq tablet,extended release RxNorm: 360567 TAKE ONE TABLET BY MOUTH DAILY 10/29/2016 01/26/2017 Inactive warfarin 5 mg tablet RxNorm: 235882 TAKE 1 AND 1/2 TABLETS BY MOUTH ON AND WEDNESDAY. TAKE ONLY 1 TABLET BY MOUTH ALL OTHER DAYS OF THE WEEK 10/27/2016 12/13/2016 In active nystatin 100,000 uni t/gram topical cream RxNorm: 198437 1 Application TOP TID 10/13/2016 08/16/2017 In active nitrofurantoin 50 mg capsule RxNorm: 603456 1 Capsule(s) PO BID 09/04/2016 09/03/2016 Inactive nitrofurantoin macro crystal 50 mg capsule RxNorm: 799309 1 Capsule(s) PO BID 09/04/2016 09/10/2016 In active Cipro 500 mg tablet RxNorm: 405862 1 Tablet(s) PO BID 08/26/2016 10/12/2016 Inactive Zyrtec 10 mg tablet RxNorm: 6602079 1 Tablet(s) PO daily 07/31/2016 08/29/2016 Inactive prednisone 20 mg tablet RxNorm: 954970 2 Tablet(s) PO daily 07/31/2016 08/02/2016 Inactive Kenalog 40 mg/mL zohra pension for injection RxNorm: 9645259 Milliliter(s) Inj 07/22/2016 07/22/2016 In active ceftriaxone 500 mg s olution for injection RxNorm: 5493139 Inj 07/22/2016 07/22/2016 Inactive Flonase Allergy Reli ef 50 mcg/actuation nasal spray,suspension RxNorm: 3138195 1 [place] NASAL BID 07/22/2016 08/20/2016 Inactive azithromycin 250 mg tablet RxNorm: 815572 2 Tablet(s) PO on day #1, then 1 pill daily x 4 days 07/22/2016 10/12/2016 Inactive warfarin 5 mg tablet RxNorm: 862514 TAKE 1 AND 1/2 TABLETS BY MOUTH ON AND WEDNESDAY. TAKE ONLY 1 TABLET BY MOUTH ALL OTHER DAYS OF THE WEEK 07/09/2016 09/30/2016 In active levothyroxine 125 mc g tablet RxNorm: 768194 Tablet(s) TAKE ONE TA BLET BY MOUTH DAILY ON AN EMPTY STOMACH 06/23/2016 02/08/2017 Inactive levothyroxine 125 mc g tablet RxNorm: 650913 TAKE ONE TABLET BY [facility] DAILY ON AN EMPTY STOMACH 06/23/2016 06/22/2016 Inactive levothyroxine 125 mc g tablet RxNorm: 244892 TAKE ONE TABLET BY [facility] DAILY ON AN EMPTY STOMACH 06/23/2016 08/04/2017 Inactive cetirizine 10 mg tablet RxNorm: 5951298 TAKE ONE TABLET BY MOUTH DAILY 06/16/2016 10/13/2016 In active furosemide 40 mg tablet RxNorm: 586432 Tablet(s) TAKE ONE TABLET BY MOUTH DAILY 06/05/2016 12/01/2016 In active cetirizine 10 mg tablet RxNorm: 2181483 1 Tablet(s) PO daily 05/01/2016 05/30/2016 Inactive Levaquin 250 mg tablet RxNorm: 992550 Tablet(s) PO 2 pills day one and 1 pill day 2-7 04/06/2016 07/21/2016 Inactive warfarin 5 mg tablet RxNorm: 525188 Tablet(s) 1/2 TABLETS BY MOUTH ON AND WEDNESDAY. TAKE ONLY 1 TABLET BY MOUTH ALL OTHER DAYS OF THE WEEK 03/18/2016 07/07/2016 In active triamcinolone aceton sreekanth 0.025 % topical cream RxNorm: 2827177 1 Application TOP BI D 03/10/2016 08/16/2017 In active potassium chloride E R 20 mEq tablet,extended release RxNorm: 307150 1 Tablet(s) PO daily 03/04/2016 06/01/2016 Inactive Levaquin 250 mg tablet RxNorm: 341414 Tablet(s) PO 2 pills day one and 1 pill day 2-7 03/04/2016 04/05/2016 Inactive Levaquin 250 mg tablet RxNorm: 412862 Tablet(s) PO 2 pills day one and 1 pill day 2-7 03/03/2016 03/03/2016 Inactive potassium chloride E R 20 mEq tablet,extended release RxNorm: 791307 1 Tablet(s) PO daily 03/03/2016 03/03/2016 Inactive Cipro 500 mg tablet RxNorm: 670801 1 Tablet(s) PO BID 02/20/2016 07/21/2016 Inactive Cipro 500 mg tablet RxNorm: 444703 1 Tablet(s) PO BID 02/20/2016 02/19/2016 Inactive furosemide 40 mg tablet RxNorm: 783638 TAKE ONE TABLET BY MOUTH DAILY 01/27/2016 01/26/2016 In active warfarin 5 mg tablet RxNorm: 424415 TAKE 1 AND 1/2 TABLETS BY MOUTH ON AND WEDNESDAY. TAKE ONLY 1 TABLET BY MOUTH ALL OTHER DAYS OF THE WEEK 01/27/2016 01/26/2016 In active furosemide 40 mg tablet RxNorm: 913673 TAKE ONE TABLET BY MOUTH DAILY 01/27/2016 06/04/2016 In active warfarin 5 mg tablet RxNorm: 958995 TAKE 1 AND 1/2 TABLETS BY MOUTH ON AND WEDNESDAY. TAKE ONLY 1 TABLET BY MOUTH ALL OTHER DAYS OF THE WEEK 01/27/2016 03/17/2016 In active potassium chloride E R 20 mEq tablet,extended release RxNorm: 394040 1 Tablet(s) PO daily 11/20/2015 03/02/2016 Inactive furosemide 40 mg tablet RxNorm: 576433 TAKE ONE TABLET BY MOUTH DAILY 11/12/2015 01/26/2016 In active Zovirax 5 % topical cream RxNorm: 444694 TOP QID 0 09/24/2015 09/23/2015 Inactive Zovirax 5 % topical cream RxNorm: 805460 TOP QID 0 09/24/2015 11/19/2015 Inactive nystatin 100,000 uni t/gram topical cream RxNorm: 780754 1 Application TOP TID 09/17/2015 10/12/2016 In active warfarin 5 mg tablet RxNorm: 990052 TAKE 1 AND 1/2 TABLETS BY MOUTH ON AND WEDNESDAY. TAKE ONLY 1 TABLET BY MOUTH ALL OTHER DAYS OF THE WEEK 08/19/2015 01/05/2016 In active loratadine 10 mg tablet RxNorm: 752782 1 Tablet(s) PO daily 07/30/2015 07/23/2016 Inactive loratadine 10 mg tablet RxNorm: 505411 1 Tablet(s) PO daily 07/30/2015 07/29/2015 Inactive furosemide 40 mg tablet RxNorm: 652727 TAKE ONE TABLET BY MOUTH DAILY 06/24/2015 11/11/2015 In active levothyroxine 125 mc g tablet RxNorm: 844026 1 Tablet(s) PO daily 05/31/2015 05/24/2016 Inactive furosemide 40 mg tablet RxNorm: 451369 1 Tablet(s) PO daily 04/05/2015 06/23/2015 Inactive warfarin 5 mg tablet RxNorm: 818431 TAKE 1 AND 1/2 TABLETS BY MOUTH ON AND WEDNESDAY. TAKE ONLY 1 TABLET BY MOUTH ALL OTHER DAYS OF THE WEEK 02/12/2015 07/29/2015 In active Flonase Allergy Reli ef 50 mcg/actuation nasal spray,suspension RxNorm: 2 [place] NASAL daily 02/05/2015 03/06/2015 Inactive Kenalog 40 mg/mL zohra pension for injection RxNorm: 5087619 Milliliter(s) Inj 02/05/2015 02/05/2015 In active warfarin 5 mg tablet RxNorm: 315777 Take 7.5mg (1 1/2 tablets) Wednesday and and 1 Tablet(s) PO (5mg) all other days 01/11/2015 02/09/2015 Inactive levothyroxine 125 mc g tablet RxNorm: 764045 1 Tablet(s) PO every other day 01/01/2015 05/30/2015 In active alternate with 150 levothyroxine 150 mc g tablet RxNorm: 723722 1 Tablet(s) PO every other day 01/01/2015 05/30/2015 In active alternate with 125 loratadine 10 mg tablet RxNorm: 614248 Tablet(s) PO as needed No Start Date Active Fish Oil 1,000 mg ca psule RxNorm: 1 Capsule(s) PO TID No Start Date Active magnesium 250 mg tablet RxNorm: 1 Tablet(s) PO daily No Start Date Active Vitamin D3 2,000 uni t tablet RxNorm: 711936 2 Tablet(s) PO daily No Start Date Active Fosamax 35 mg tablet RxNorm: 447351 1 Tablet(s) PO QW No Start Date Active levothyroxine 125 mc g tablet RxNorm: 818155 1 Tablet(s) PO daily No Start Date 12/31/2014 Inactive levothyroxine 150 mc g tablet RxNorm: 152701 1 Tablet(s) PO daily No Start Date 12/31/2014 Inactive diltiazem 60 mg tablet RxNorm: 053865 1 Tablet(s) PO QID No Start Date 03/23/2018 Inactive meclizine 25 mg tablet RxNorm: 401289 1 Tablet(s) PO TID as needed Dizziness No Start Date 07/18/2018 Inactive furosemide 40 mg tablet RxNorm: 443810 1 Tablet(s) PO daily No Start Date 04/04/2015 Inactive potassium chloride RxNorm: miscellaneous No Start Date 11/19/2015 Inactive Vitamin D2 oral RxNorm: 4018 oral No Start Date 05/31/2015 Inactive warfarin 5 mg tablet RxNorm: 125140 1 Tablet(s) PO daily No Start Date 01/10/2015 Inactive Coumadin 4 mg tablet RxNorm: 905816 1 Tablet(s) PO Wed/ No Start Date 07/28/2017 Inactive Medication Administered Medication Codes Instruc tions Start Date Status ceftriaxone 500 mg solution for injection RxNorm: 9079295 07/22/2016 No longer A ctive Kenalog 40 mg/mL suspension for injection RxNorm: 9577988 Milliliter 07/22/2016 No longer Active Kenalog 40 mg/mL suspension for injection RxNorm: 3781449 Milliliter 02/05/2015 No longer Active Immunizations Vaccine [...] (acquired) ICD-10 : E03.4 ICD-9: 244.8 08/16/2018 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-10: Z79.01 ICD-9: [...] 244.9 11/20/2014 ACTINIC KERATOSIS ICD-9: 702.0 11/20/2014 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 of anticoagulant therapy ICD-9: V58.61 [...] Code Item Item Code Result Date Pt Afh4529 PT 16.8 seconds 09/12/2018 Pt Ngc1368 INR 1.4 09/12/2018 Pt Jcc5177 Low Intensity - 1.5-2.0 09/12/2018 Pt Jsd8834 Mod intensity - 2.0-3.0 09/12/2018 Pt Zai9904 Hi intensity - 3.0-4.0 09/12/2018 Pt Hvj1168 PT 13.1 seconds 09/07/2018 Pt Xsr4828 INR 1.0 09/07/2018 Pt Qka5806 Low Intensity - 1.5-2.0 09/07/2018 Pt Dmk5789 Mod intensity - 2.0-3.0 09/07/2018 Pt Hjl1425 Hi intensity - 3.0-4.0 09/07/2018 Pt Ony1893 PT 24.1 seconds 08/23/2018 Pt Raf8590 INR 2.2 08/23/2018 Pt Txz7145 Low Intensity - 1.5-2.0 08/23/2018 Pt Dgn1773 Mod intensity - 2.0-3.0 08/23/2018 Pt Cth0465 Hi intensity - 3.0-4.0 08/23/2018 Pt Otj5698 PT 30.9 seconds 08/16/2018 Pt Unw5958 INR 3.0 08/16/2018 Pt Bbl2176 Low Intensity - 1.5-2.0 08/16/2018 Pt Cac2896 Mod intensity - 2.0-3.0 08/16/2018 Pt Vva6679 Hi intensity - 3.0-4.0 08/16/2018 Pt Fyf3766 PT 29.5 seconds 08/01/2018 Pt Lza9389 INR 2.8 08/01/2018 Pt Yup7844 Low Intensity - 1.5-2.0 08/01/2018 Pt Bfr8890 Mod intensity - 2.0-3.0 08/01/2018 Pt Qbp5707 Hi intensity - 3.0-4.0 08/01/2018 Pt Jzp4801 PT 24.2 seconds 07/25/2018 Pt Eqy4980 INR 2.2 07/25/2018 Pt Zia4106 Low Intensity - 1.5-2.0 07/25/2018 Pt Qtp9346 Mod intensity - 2.0-3.0 07/25/2018 Pt Xsg5184 Hi intensity - 3.0-4.0 07/25/2018 Pt Lwt9705 PT 38.6 seconds 07/19/2018 Pt Fdt8648 INR 4.0 07/19/2018 Pt Suf6643 Low Intensity - 1.5-2.0 07/19/2018 Pt Ykv4931 Mod intensity - 2.0-3.0 07/19/2018 Pt Gpu5065 Hi intensity - 3.0-4.0 07/19/2018 Pt Xcl5146 PT 25.7 seconds 07/11/2018 Pt Juq5426 INR 2.4 07/11/2018 Pt Fsx9191 Low Intensity - 1.5-2.0 07/11/2018 Pt Ixe0245 Mod intensity - 2.0-3.0 07/11/2018 Pt Ugd4371 Hi intensity - 3.0-4.0 07/11/2018 Pt Fix7143 PT 18.5 seconds 07/08/2018 Pt Xvj2135 INR 1.6 07/08/2018 Pt Pdg2765 Low Intensity - 1.5-2.0 07/08/2018 Pt Tmo2280 Mod intensity - 2.0-3.0 07/08/2018 Pt Fsb9827 Hi intensity - 3.0-4.0 07/08/2018 Pt Sxp6077 PT 27.3 seconds 06/29/2018 Pt Xxr2042 INR 2.6 06/29/2018 Pt Rbn3594 Low Intensity - 1.5-2.0 06/29/2018 Pt Cfu0690 Mod intensity - 2.0-3.0 06/29/2018 Pt Gbm8503 Hi intensity - 3.0-4.0 06/29/2018 Pt Vyb3337 PT 24.0 seconds 05/26/2018 Pt Azr6648 INR 2.2 05/26/2018 Pt Nah5288 Low Intensity - 1.5-2.0 05/26/2018 Pt Gay7012 Mod intensity - 2.0-3.0 05/26/2018 Pt Oid8911 Hi intensity - 3.0-4.0 05/26/2018 Tsh Ord6 [...] 29.6 pg 03/25/2018 Cbc With Differential Ord2 [place]% 9.5 % 03/25/2018 Cbc With Differential Ord2 [...] 2.19 K/ul 03/25/2018 Cbc With Differential Ord2 [place] ABS# 0.8 K/ul 03/25/2018 Cbc With Differential Ord2 Eos ABS# 0.3 K/ul 03/25/2018 Cbc With Differential Ord2 Baso ABS# 0.0 K/ul 03/25/2018 Lipid Ord30 CHOL 156 mg/dL 03/25/2018 Lipid Ord30 HDL 52.0 mg/dl 03/25/2018 Lipid Ord30 TRIG 98 mg/dL 03/25/2018 Lipid Ord30 LDL 84 mg/dL 03/25/2018 Lipid Ord30 C/HDL 3.0 Ratio 03/25/2018 Free T4 Onh807 FREE T4 1.73 ng/dL 03/25/2018 Comp Metabolic Gtu227 NA 143 mEq/L 03/25/2018 Comp Metabolic Bny489 K 4.6 mEq/L 03/25/2018 Comp Metabolic Wwa806 CL 108 mEq/L 03/25/2018 Comp Metabolic Zdn202 CO2 26.0 mEq/L 03/25/2018 Comp Metabolic Nru975 AN ION GAP 14 03/25/2018 Comp Metabolic Uhz351 GL UCOSE 87 mg/dL 03/25/2018 Comp Metabolic Dcz959 Cr eat 1.2 mg/dL 03/25/2018 Comp Metabolic Dvy282 eG FR 48 ml/min/1.73m2 03/25 Comp Metabolic Ktw007 BUN 18 mg/dL 03/25/2018 Comp Metabolic Qod250 B/ C Ratio 15.5 Ratio 03/25/2018 Comp Metabolic Qrg454 CA LCIUM 9.1 mg/dL 03/25/2018 Comp Metabolic Xmx479 AL K PHOS 58 U/L 03/25/2018 Comp Metabolic Wlv838 T(SGOT) 21 U/L 03/25/2018 Comp Metabolic Bac505 AL T(SGPT) 13 U/L 03/25/2018 Comp Metabolic Xig361 BI LI T 0.7 mg/dL 03/25/2018 Comp Metabolic Zos282 AL BUMIN 3.2 g/dL 03/25/2018 Comp Metabolic Egz769 TP RO 5.5 g/dL 03/25/2018 Comp Metabolic Uws883 GL OB 2.3 g/dL 03/25/2018 Comp Metabolic Edy562 A/ G Ratio 1.4 Ratio 03/25/2018 Comp Metabolic Uus755 Os mo 286 mOsmo 03/25/2018 Pt Bkw2822 PT 29.0 seconds 03/22/2018 Pt Nyw9456 INR 2.7 03/22/2018 Pt Heg0245 Low Intensity - 1.5-2.0 03/22/2018 Pt Zsf8201 Mod intensity - 2.0-3.0 03/22/2018 Pt Ylr6935 Hi intensity - 3.0-4.0 03/22/2018 Pt Oba1481 PT 27.1 seconds 02/25/2018 Pt Ufd6916 INR 2.5 02/25/2018 Pt Kan0088 Low Intensity - 1.5-2.0 02/25/2018 Pt Wyk1162 Mod intensity - 2.0-3.0 02/25/2018 Pt Qlf3873 Hi intensity - 3.0-4.0 02/25/2018 Pt Mvb2947 PT 26.1 seconds 01/26/2018 Pt Lvb7335 INR 2.4 01/26/2018 Pt Pbm2241 Low Intensity - 1.5-2.0 01/26/2018 Pt Oki4182 Mod intensity - 2.0-3.0 01/26/2018 Pt Bhm0009 Hi intensity - 3.0-4.0 01/26/2018 Pt Dgg9811 PT 22.8 seconds 12/24/2017 Pt Acc7651 INR 2.0 12/24/2017 Pt Ngj4959 Low Intensity - 1.5-2.0 12/24/2017 Pt Bgz2052 Mod intensity - 2.0-3.0 12/24/2017 Pt Zpt4029 Hi intensity - 3.0-4.0 12/24/2017 Pt Xhm2926 PT 29.4 seconds 11/18/2017 Pt Hgo9463 INR 2.8 11/18/2017 Pt Nlb3382 Low Intensity - 1.5-2.0 11/18/2017 Pt Sjc5022 Mod intensity - 2.0-3.0 11/18/2017 Pt Cmu2595 Hi intensity - 3.0-4.0 11/18/2017 Pt Iii1895 PT 26.6 seconds 09/13/2017 Pt Afd6434 INR 2.4 09/13/2017 Pt Noi0267 Low Intensity - 1.5-2.0 09/13/2017 Pt Fjs9535 Mod intensity - 2.0-3.0 09/13/2017 Pt Hma9867 Hi intensity - 3.0-4.0 09/13/2017 Pt Wud3532 PT 28.2 seconds 08/10/2017 Pt Pbs7503 INR 2.6 08/10/2017 Pt Luy6915 Low Intensity - 1.5-2.0 08/10/2017 Pt Zvx1091 Mod intensity - 2.0-3.0 08/10/2017 Pt Tzn1939 Hi intensity - 3.0-4.0 08/10/2017 Pt Nbt6708 PT 33.9 seconds 07/27/2017 Pt Lmq2188 INR 3.3 07/27/2017 Pt Mtd0169 Low Intensity - 1.5-2.0 07/27/2017 Pt Ewx8288 Mod intensity - 2.0-3.0 07/27/2017 Pt Vlb8262 Hi intensity - 3.0-4.0 07/27/2017 Pt Xgn6023 PT 29.1 seconds 06/29/2017 Pt Mqh8105 INR 2.7 06/29/2017 Pt Qtk7843 Low Intensity - 1.5-2.0 06/29/2017 Pt Sdk7664 Mod intensity - 2.0-3.0 06/29/2017 Pt Maw5021 Hi intensity - 3.0-4.0 06/29/2017 Pt Jiy5675 PT 30.3 seconds 06/11/2017 Pt Fnq7136 INR 2.9 06/11/2017 Pt Rxu1037 Low Intensity - 1.5-2.0 06/11/2017 Pt Hhl6859 Mod intensity - 2.0-3.0 06/11/2017 Pt Xqy3547 Hi intensity - 3.0-4.0 06/11/2017 Pt Tto3819 PT 39.1 seconds 06/07/2017 Pt Pjo8835 INR 3.9 06/07/2017 Pt Ngg2788 Low Intensity - 1.5-2.0 06/07/2017 Pt Xpl6292 Mod intensity - 2.0-3.0 06/07/2017 Pt Jbo3669 Hi intensity - 3.0-4.0 06/07/2017 Pt Cuc1285 PT 34.2 seconds 05/26/2017 Pt Sbv5998 INR 3.3 05/26/2017 Pt Nqr7542 Low Intensity - 1.5-2.0 05/26/2017 Pt Fmk4504 Mod intensity - 2.0-3.0 05/26/2017 Pt Kcn7331 Hi intensity - 3.0-4.0 05/26/2017 Comp Metabolic Jxn827 NA 138 mEq/L 04/23/2017 Comp Metabolic Nlc352 K 4.2 mEq/L 04/23/2017 Comp Metabolic Thf450 CL 101 mEq/L 04/23/2017 Comp Metabolic Avk399 CO2 28.0 mEq/L 04/23/2017 Comp Metabolic Unz932 AN ION GAP 13 04/23/2017 Comp Metabolic Taf473 GL UCOSE 89 mg/dL 04/23/2017 Comp Metabolic Nhg799 Cr eat 1.1 mg/dL 04/23/2017 Comp Metabolic Jsu515 eG FR 51 ml/min/1.73m2 04/23 Comp Metabolic Jgc655 BUN 26 mg/dL 04/23/2017 Comp Metabolic Glm228 B/ C Ratio 23.9 Ratio 04/23/2017 Comp Metabolic Axr295 CA LCIUM 9.4 mg/dL 04/23/2017 Comp Metabolic Olg018 AL K PHOS 95 U/L 04/23/2017 Comp Metabolic Ssb170 T(SGOT) 18 U/L 04/23/2017 Comp Metabolic Fzu167 AL T(SGPT) 17 U/L 04/23/2017 Comp Metabolic Ipo612 BI LI T 0.7 mg/dL 04/23/2017 Comp Metabolic Gdq244 AL BUMIN 3.2 g/dL 04/23/2017 Comp Metabolic Xkc764 TP RO 5.6 g/dL 04/23/2017 Comp Metabolic Fbk854 GL OB 2.4 g/dL 04/23/2017 Comp Metabolic Pyu291 A/ G Ratio 1.3 Ratio 04/23/2017 Comp Metabolic Mxd000 Os mo 280 mOsmo 04/23/2017 Pt Bph7008 PT 28.6 seconds 04/23/2017 Pt Rop2146 INR 2.7 04/23/2017 Pt Irp2110 Low Intensity - 1.5-2.0 04/23/2017 Pt Etl6879 Mod intensity - 2.0-3.0 04/23/2017 Pt Cmq1965 Hi intensity - 3.0-4.0 04/23/2017 Pt Dxl2281 PT 24.4 seconds 03/16/2017 Pt Qbq4506 INR 2.2 03/16/2017 Pt Tbb1224 Low Intensity - 1.5-2.0 03/16/2017 Pt Xpp7587 Mod intensity - 2.0-3.0 03/16/2017 Pt Rfp8042 Hi intensity - 3.0-4.0 03/16/2017 Pt Oza9143 PT 28.2 seconds 02/24/2017 Pt Gsq9849 INR 2.6 02/24/2017 Pt Lcf5128 Low Intensity - 1.5-2.0 02/24/2017 Pt Ufz2155 Mod intensity - 2.0-3.0 02/24/2017 Pt Nan7489 Hi intensity - 3.0-4.0 02/24/2017 Pt Fui4339 PT 26.8 seconds 02/08/2017 Pt Atb1032 INR 2.5 02/08/2017 Pt Vxc9733 Low Intensity - 1.5-2.0 02/08/2017 Pt Kss1981 Mod intensity - 2.0-3.0 02/08/2017 Pt Cwc2700 Hi intensity - 3.0-4.0 02/08/2017 Lipid Ord30 CHOL 150 mg/dL 01/25/2017 Lipid Ord30 HDL 55.0 mg/dl 01/25/2017 Lipid Ord30 TRIG 66 mg/dL 01/25/2017 Lipid Ord30 LDL 82 mg/dL 01/25/2017 Lipid Ord30 C/HDL 2.7 Ratio 01/25/2017 Pt Aii6148 PT 29.9 seconds 01/25/2017 Pt Rsu9711 INR 2.8 01/25/2017 Pt Dux7339 Low Intensity - 1.5-2.0 01/25/2017 Pt Xbj0354 Mod intensity - 2.0-3.0 01/25/2017 Pt Dlv9099 Hi intensity - 3.0-4.0 01/25/2017 Comp Metabolic Cms238 NA 143 mEq/L 01/25/2017 Comp Metabolic Rme742 K 3.9 mEq/L 01/25/2017 Comp Metabolic Rtc847 CL 108 mEq/L 01/25/2017 Comp Metabolic Nva009 CO2 23.0 mEq/L 01/25/2017 Comp Metabolic Nan787 AN ION GAP 16 01/25/2017 Comp Metabolic Ibx712 GL UCOSE 80 mg/dL 01/25/2017 Comp Metabolic Yms768 Cr eat 1.0 mg/dL 01/25/2017 Comp Metabolic Qwa055 eG FR 57 ml/min/1.73m2 01/25 Comp Metabolic Hgi704 BUN 25 mg/dL 01/25/2017 Comp Metabolic Tse393 B/ C Ratio 25.0 Ratio 01/25/2017 Comp Metabolic Dbw273 CA LCIUM 8.5 mg/dL 01/25/2017 Comp Metabolic Nxg310 AL K PHOS 81 U/L 01/25/2017 Comp Metabolic Tzf893 T(SGOT) 19 U/L 01/25/2017 Comp Metabolic Ecq154 AL T(SGPT) 23 U/L 01/25/2017 Comp Metabolic Bpj353 BI LI T 0.5 mg/dL 01/25/2017 Comp Metabolic Ayw603 AL BUMIN 2.9 g/dL 01/25/2017 Comp Metabolic Jym200 TP RO 5.1 g/dL 01/25/2017 Comp Metabolic Mzu113 GL OB 2.2 g/dL 01/25/2017 Comp Metabolic Hkf215 A/ G Ratio 1.3 Ratio 01/25/2017 Comp Metabolic Qhu759 Os mo 288 mOsmo 01/25/2017 Cbc With [...] 30.7 pg 01/25/2017 Cbc With Differential Ord2 Sauk% 8.2 % 01/25/2017 Cbc With Differential Ord2 [...] 3.10 K/ul 01/25/2017 Cbc With Differential Ord2 Sauk ABS# 0.8 K/ul 01/25/2017 Cbc With Differential Ord2 Eos ABS# 0.4 K/ul 01/25/2017 Cbc With Differential Ord2 Baso ABS# 0.1 K/ul 01/25/2017 Free T4 Dhp632 FREE T4 2.09 ng/dL 01/25/2017 Tsh Ord6 hTSH II 0.46 uIU/mL 01/25/2017 Pt Xrr1151 PT 26.1 seconds 11/26/2016 Pt Kfp8865 INR 2.6 11/26/2016 Pt Nyz1573 Low Intensity - 1.5-2.0 11/26/2016 Pt Mia4494 Mod intensity - 2.0-3.0 11/26/2016 Pt Dgv9787 Hi intensity - 3.0-4.0 11/26/2016 Pt Pmt2618 PT 26.2 seconds 10/29/2016 Pt Pze6194 INR 2.6 10/29/2016 Pt Iph1481 Low Intensity - 1.5-2.0 10/29/2016 Pt Xse6911 Mod intensity - 2.0-3.0 10/29/2016 Pt Hgj1135 Hi intensity - 3.0-4.0 10/29/2016 Pt Fmo7228 PT 20.8 seconds 10/13/2016 Pt Oob1524 INR 1.9 10/13/2016 Pt Uyi9867 Low Intensity - 1.5-2.0 10/13/2016 Pt Wyq0930 Mod intensity - 2.0-3.0 10/13/2016 Pt Ecw8643 Hi intensity - 3.0-4.0 10/13/2016 Pt Fqe6244 PT 26.5 seconds 10/01/2016 Pt Qga9391 INR 2.6 10/01/2016 Pt Tsr4881 Low Intensity - 1.5-2.0 10/01/2016 Pt Tbo7111 Mod intensity - 2.0-3.0 10/01/2016 Pt Hke2102 Hi intensity - 3.0-4.0 10/01/2016 Pt Kcb7476 PT 24.6 seconds 09/14/2016 Pt Tmu5917 INR 2.4 09/14/2016 Pt Cdf8355 Low Intensity - 1.5-2.0 09/14/2016 Pt Cqd2478 Mod intensity - 2.0-3.0 09/14/2016 Pt Eco2204 Hi intensity - 3.0-4.0 09/14/2016 Pt Xqu9674 PT 18.0 seconds 09/07/2016 Pt Rrb3857 INR 1.6 09/07/2016 Pt Agz4559 Low Intensity - 1.5-2.0 09/07/2016 Pt Jmi5750 Mod intensity - 2.0-3.0 09/07/2016 Pt Pja1284 Hi intensity - 3.0-4.0 09/07/2016 Pt Ylb0913 PT 23.7 seconds 08/12/2016 Pt Svy9814 INR 2.2 08/12/2016 Pt Yiz3032 Low Intensity - 1.5-2.0 08/12/2016 Pt Yeq9172 Mod intensity - 2.0-3.0 08/12/2016 Pt Sjv6641 Hi intensity - 3.0-4.0 08/12/2016 Pt Evw1751 PT 21.6 seconds 07/27/2016 Pt Nmm1007 INR 2.0 07/27/2016 Pt Jyz3570 Low Intensity - 1.5-2.0 07/27/2016 Pt Vsb7138 Mod intensity - 2.0-3.0 07/27/2016 Pt Lzu3735 Hi intensity - 3.0-4.0 07/27/2016 Pt Lby9925 PT 26.0 seconds 06/15/2016 Pt Ces6050 INR 2.5 06/15/2016 Pt Zbm7851 Low Intensity - 1.5-2.0 06/15/2016 Pt Kjh5293 Mod intensity - 2.0-3.0 06/15/2016 Pt Dsk6767 Hi intensity - 3.0-4.0 06/15/2016 Pt Mcn1274 PT 18.8 seconds 06/01/2016 Pt Suo6953 INR 1.7 06/01/2016 Pt Wdq5874 Low Intensity - 1.5-2.0 06/01/2016 Pt Sje8747 Mod intensity - 2.0-3.0 06/01/2016 Pt Poa9653 Hi intensity - 3.0-4.0 06/01/2016 Pt Edg0172 PT 20.8 seconds 05/12/2016 Pt Iwo1876 INR 1.9 05/12/2016 Pt Ltw9812 Low Intensity - 1.5-2.0 05/12/2016 Pt Ziz6965 Mod intensity - 2.0-3.0 05/12/2016 Pt Kub3965 Hi intensity - 3.0-4.0 05/12/2016 Pt Tkw6377 PT 24.5 seconds 04/10/2016 Pt Ysj0648 INR 2.4 04/10/2016 Pt Fdt2123 Low Intensity - 1.5-2.0 04/10/2016 Pt Gyz8371 Mod intensity - 2.0-3.0 04/10/2016 Pt Aui4931 Hi intensity - 3.0-4.0 04/10/2016 Pt Wrc7526 PT 26.4 seconds 03/10/2016 Pt Cir9635 INR 2.6 03/10/2016 Pt Ram0088 Low Intensity - 1.5-2.0 03/10/2016 Pt Pdc1644 Mod intensity - 2.0-3.0 03/10/2016 Pt Lsh3344 Hi intensity - 3.0-4.0 03/10/2016 Pt Kgg2044 PT 24.9 seconds 03/06/2016 Pt Vet0728 INR 2.4 03/06/2016 Pt Zoq6303 Low Intensity - 1.5-2.0 03/06/2016 Pt Wqo7124 Mod intensity - 2.0-3.0 03/06/2016 Pt Zod8887 Hi intensity - 3.0-4.0 03/06/2016 Pt Oab9341 PT 21.9 seconds 02/25/2016 Pt Mcg3308 INR 2.0 02/25/2016 Pt Rkr8125 Low Intensity - 1.5-2.0 02/25/2016 Pt Zsa7360 Mod intensity - 2.0-3.0 02/25/2016 Pt Sez2635 Hi intensity - 3.0-4.0 02/25/2016 Pt Iac6385 PT 21.8 seconds 02/21/2016 Pt Byd0567 INR 2.0 02/21/2016 Pt Nny6982 Low Intensity - 1.5-2.0 02/21/2016 Pt Biw1897 Mod intensity - 2.0-3.0 02/21/2016 Pt Pwd8499 Hi intensity - 3.0-4.0 02/21/2016 Culture Urine [id number] URI NE CULTURE SEE NOTES 02/20/2016 Culture Urine [id number] Con tinued Results 02/20/2016 Urine Culture Ucult [...] 29.2 pg 02/14/2016 Cbc With Differential Ord2 Sauk% 9.3 % 02/14/2016 Cbc With Differential Ord2 [...] 2.55 K/ul 02/14/2016 Cbc With Differential Ord2 Sauk ABS# 0.8 K/ul 02/14/2016 Cbc With Differential Ord2 Eos ABS# 0.4 K/ul 02/14/2016 Cbc With Differential Ord2 Baso ABS# 0.1 K/ul 02/14/2016 Tsh Ord6 hTSH II 0.80 uIU/mL 02/14/2016 Pt Plp6856 PT 27.1 seconds 02/14/2016 Pt Pfx7186 INR 2.7 02/14/2016 Pt Fkb5047 Low Intensity - 1.5-2.0 02/14/2016 Pt Oei7502 Mod intensity - 2.0-3.0 02/14/2016 Pt Ltb0112 Hi intensity - 3.0-4.0 02/14/2016 Free T4 Jmi217 FREE T4 1.87 ng/dL 02/14/2016 Comp Metabolic Hkm707 NA 139 mEq/L 02/14/2016 Comp Metabolic Bte986 K 3.8 mEq/L 02/14/2016 Comp Metabolic Qud715 CL 103 mEq/L 02/14/2016 Comp Metabolic Zhl116 CO2 27.0 mEq/L 02/14/2016 Comp Metabolic Ggo304 AN ION GAP 13 02/14/2016 Comp Metabolic Jsj780 GL UCOSE 91 mg/dL 02/14/2016 Comp Metabolic Ufg271 Cr eat 1.0 mg/dL 02/14/2016 Comp Metabolic Wjm801 eG FR 58 ml/min/1.73m2 02/13 Comp Metabolic Aun076 BUN 16 mg/dL 02/14/2016 Comp Metabolic Olo151 B/ C Ratio 16.2 Ratio 02/14/2016 Comp Metabolic Zva918 CA LCIUM 9.0 mg/dL 02/14/2016 Comp Metabolic Rcu724 AL K PHOS 88 U/L 02/14/2016 Comp Metabolic Pku165 T(SGOT) 17 U/L 02/14/2016 Comp Metabolic Ssx773 AL T(SGPT) 12 U/L 02/14/2016 Comp Metabolic Qzy637 BI LI T 0.6 mg/dL 02/14/2016 Comp Metabolic Uic813 AL BUMIN 3.2 g/dL 02/14/2016 Comp Metabolic Pna590 TP RO 5.8 g/dL 02/14/2016 Comp Metabolic Yzd279 GL OB 2.6 g/dL 02/14/2016 Comp Metabolic Oyt175 A/ G Ratio 1.3 Ratio 02/14/2016 Comp Metabolic Dnc770 Os mo 278 mOsmo 02/14/2016 Pt Dlm3483 PT 34.6 seconds 02/06/2016 Pt Mfx4730 INR 3.7 02/06/2016 Pt Dwe6317 Low Intensity - 1.5-2.0 02/06/2016 Pt Uwe2339 Mod intensity - 2.0-3.0 02/06/2016 Pt Nmi2377 Hi intensity - 3.0-4.0 02/06/2016 Pt Igr5675 PT 33.3 seconds 01/23/2016 Pt Bak5697 INR 3.5 01/23/2016 Pt Cuk1120 Low Intensity - 1.5-2.0 01/23/2016 Pt Ily5703 Mod intensity - 2.0-3.0 01/23/2016 Pt Bes7470 Hi intensity - 3.0-4.0 01/23/2016 Pt Xnv6966 PT 30.5 seconds 12/31/2015 Pt Peb0048 INR 3.2 12/31/2015 Pt Gqy1876 Low Intensity - 1.5-2.0 12/31/2015 Pt Qji2692 Mod intensity - 2.0-3.0 12/31/2015 Pt Drm2487 Hi intensity - 3.0-4.0 12/31/2015 Pt Zoz6368 PT 35.6 seconds 12/25/2015 Pt Czq4646 INR 3.9 12/25/2015 Pt Zdv9328 Low Intensity - 1.5-2.0 12/25/2015 Pt Wpd9833 Mod intensity - 2.0-3.0 12/25/2015 Pt Huf5362 Hi intensity - 3.0-4.0 12/25/2015 Pt Ijf2805 PT 30.8 seconds 11/21/2015 Pt Sty6913 INR 3.2 11/21/2015 Pt Ipp2996 Low Intensity - 1.5-2.0 11/21/2015 Pt Dhn6159 Mod intensity - 2.0-3.0 11/21/2015 Pt Hbi8055 Hi intensity - 3.0-4.0 11/21/2015 Uric Acid [...] 30.0 pg 11/20/2015 Cbc With Differential Ord2 Sauk% 8.1 % 11/20/2015 Cbc With Differential Ord2 [...] 2.51 K/ul 11/20/2015 Cbc With Differential Ord2 Sauk ABS# 0.9 K/ul 11/20/2015 Cbc With Differential Ord2 Eos ABS# 0.3 K/ul 11/20/2015 Cbc With Differential Ord2 Baso ABS# 0.0 K/ul 11/20/2015 Comp Metabolic Ouk613 NA 137 mEq/L 10/22/2015 Comp Metabolic Xql323 K 3.9 mEq/L 10/22/2015 Comp Metabolic Hnr423 CL 100 mEq/L 10/22/2015 Comp Metabolic Ezt892 CO2 31.0 mEq/L 10/22/2015 Comp Metabolic Lxu225 AN ION GAP 10 10/22/2015 Comp Metabolic Tde874 GL UCOSE 94 mg/dL 10/22/2015 Comp Metabolic Pad649 Cr eat 1.0 mg/dL 10/22/2015 Comp Metabolic Ibs588 eG FR 55 ml/min/1.73m2 10/21 Comp Metabolic Uum373 BUN 19 mg/dL 10/22/2015 Comp Metabolic Xls583 B/ C Ratio 18.3 Ratio 10/22/2015 Comp Metabolic Fzj292 CA LCIUM 8.8 mg/dL 10/22/2015 Comp Metabolic Jkh876 AL K PHOS 83 U/L 10/22/2015 Comp Metabolic Tvh679 T(SGOT) 15 U/L 10/22/2015 Comp Metabolic Vfk442 AL T(SGPT) 13 U/L 10/22/2015 Comp Metabolic Vqn810 BI LI T 0.9 mg/dL 10/22/2015 Comp Metabolic Pmk688 AL BUMIN 2.8 g/dL 10/22/2015 Comp Metabolic Zov543 TP RO 5.4 g/dL 10/22/2015 Comp Metabolic Sgf443 GL OB 2.6 g/dL 10/22/2015 Comp Metabolic Iby952 A/ G Ratio 1.1 Ratio 10/22/2015 Comp Metabolic Dle914 Os mo 276 mOsmo 10/22/2015 Bili D Ord93 BILI D 0.1 mg/dL 10/22/2015 Bili D Ord93 BILI I 0.8 mg/dL 10/22/2015 Pt Yqa2108 PT 22.8 seconds 10/22/2015 Pt Hsx4076 INR 2.1 10/22/2015 Pt Bej4746 Low Intensity - 1.5-2.0 10/22/2015 Pt Cuw7381 Mod intensity - 2.0-3.0 10/22/2015 Pt Nss4293 Hi intensity - 3.0-4.0 10/22/2015 Pt Uut9912 PT 28.0 seconds 09/16/2015 Pt Dbs4365 INR 2.7 09/16/2015 Pt Jlz1881 Low Intensity - 1.5-2.0 09/16/2015 Pt Qwv8146 Mod intensity - 2.0-3.0 09/16/2015 Pt Vxa0980 Hi intensity - 3.0-4.0 09/16/2015 Tsh Ord6 hTSH II 1.40 uIU/mL 09/16/2015 Free T4 Ycr073 FREE T4 1.73 ng/dL 09/16/2015 Lipid Ord30 CHOL 169 mg/dL 09/16/2015 Lipid Ord30 HDL 66.0 mg/dl 09/16/2015 Lipid Ord30 TRIG 78 mg/dL 09/16/2015 Lipid Ord30 LDL 87 mg/dL 09/16/2015 Lipid Ord30 C/HDL 2.6 Ratio 09/16/2015 Pt Tnt4158 PT 26.6 seconds 08/21/2015 Pt Mjz6411 INR 2.6 08/21/2015 Pt Dwk2259 Low Intensity - 1.5-2.0 08/21/2015 Pt Hsp3497 Mod intensity - 2.0-3.0 08/21/2015 Pt Lxn8837 Hi intensity - 3.0-4.0 08/21/2015 Comp Metabolic Usg633 NA 141 mEq/L 08/08/2015 Comp Metabolic Mcp901 K 3.3 mEq/L 08/08/2015 Comp Metabolic Ugr829 CL 102 mEq/L 08/08/2015 Comp Metabolic Cut510 CO2 31.0 mEq/L 08/08/2015 Comp Metabolic Vla573 AN ION GAP 11 08/08/2015 Comp Metabolic Gfd170 GL UCOSE 83 mg/dL 08/08/2015 Comp Metabolic Npy706 Cr eat 1.0 mg/dL 08/08/2015 Comp Metabolic Hga854 eG FR 55 ml/min/1.73m2 08/08 Comp Metabolic Wmu129 BUN 19 mg/dL 08/08/2015 Comp Metabolic Qod734 B/ C Ratio 18.3 Ratio 08/08/2015 Comp Metabolic Nrs210 CA LCIUM 8.9 mg/dL 08/08/2015 Comp Metabolic Hmu363 AL K PHOS 84 U/L 08/08/2015 Comp Metabolic Ehh682 T(SGOT) 20 U/L 08/08/2015 Comp Metabolic Xnd091 AL T(SGPT) 18 U/L 08/08/2015 Comp Metabolic Wwu027 BI LI T 0.6 mg/dL 08/08/2015 Comp Metabolic Wol679 AL BUMIN 3.3 g/dL 08/08/2015 Comp Metabolic Rnd710 TP RO 5.9 g/dL 08/08/2015 Comp Metabolic Acs148 GL OB 2.6 g/dL 08/08/2015 Comp Metabolic Wqq533 A/ G Ratio 1.3 Ratio 08/08/2015 Comp Metabolic Whn575 Os mo 283 mOsmo 08/08/2015 Cbc With [...] 30.0 pg 08/08/2015 Cbc With Differential Ord2 Sauk% 8.2 % 08/08/2015 Cbc With Differential Ord2 [...] 2.90 K/ul 08/08/2015 Cbc With Differential Ord2 Sauk ABS# 0.9 K/ul 08/08/2015 Cbc With Differential [...] Ord93 BILI I 0.5 mg/dL 08/08/2015 Pt Cun0148 PT 31.8 seconds 08/05/2015 Pt Pmz1928 INR 3.2 08/05/2015 Pt Vah8801 Low Intensity - 1.5-2.0 08/05/2015 Pt Kzq4005 Mod intensity - 2.0-3.0 08/05/2015 Pt Dbl1389 Hi intensity - 3.0-4.0 08/05/2015 Pt Yuf3448 PT 27.4 seconds 06/27/2015 Pt Dfa5244 INR 2.6 06/27/2015 Pt Dac5786 Low Intensity - 1.5-2.0 06/27/2015 Pt Yvr3574 Mod intensity - 2.0-3.0 06/27/2015 Pt Fbt2639 Hi intensity - 3.0-4.0 06/27/2015 Tsh Ord6 [...] Ord2 RDW 15.1 % 05/31/2015 Free T4 Qsh718 FREE T4 1.89 ng/dL 05/31/2015 Comp Metabolic Uxq411 NA 140 mEq/L 05/31/2015 Comp Metabolic Bos879 K 3.3 mEq/L 05/31/2015 Comp Metabolic Sow973 CL 99 mEq/L 05/31/2015 Comp Metabolic Tau981 CO2 30.0 mEq/L 05/31/2015 Comp Metabolic Ful779 AN ION GAP 14 05/31/2015 Comp Metabolic Mnz809 GL UCOSE 70 mg/dL 05/31/2015 Comp Metabolic Nss715 Cr eat 1.0 mg/dL 05/31/2015 Comp Metabolic Dzw236 eG FR 55 ml/min/1.73m2 05/31 Comp Metabolic Ysx685 BUN 23 mg/dL 05/31/2015 Comp Metabolic Nih779 B/ C Ratio 22.1 Ratio 05/31/2015 Comp Metabolic Xvh483 CA LCIUM 8.9 mg/dL 05/31/2015 Comp Metabolic Wnm251 AL K PHOS 86 U/L 05/31/2015 Comp Metabolic Ovt571 T(SGOT) 28 U/L 05/31/2015 Comp Metabolic Waw804 AL T(SGPT) 30 U/L 05/31/2015 Comp Metabolic Wvi813 BI LI T 0.4 mg/dL 05/31/2015 Comp Metabolic Gzg376 AL BUMIN 3.3 g/dL 05/31/2015 Comp Metabolic Vgz737 TP RO 6.0 g/dL 05/31/2015 Comp Metabolic Zya139 GL OB 2.7 g/dL 05/31/2015 Comp Metabolic Hmz984 A/ G Ratio 1.2 Ratio 05/31/2015 Comp Metabolic Mld036 Os mo 282 mOsmo 05/31/2015 Pt Ngm2875 PT 23.3 seconds 04/15/2015 Pt His4165 INR 2.2 04/15/2015 Pt Gkg6672 Low Intensity - 1.5-2.0 04/15/2015 Pt Cju1853 Mod intensity - 2.0-3.0 04/15/2015 Pt Bvz2131 Hi intensity - 3.0-4.0 04/15/2015 Pt Imk9007 PT 19.5 seconds 04/04/2015 Pt Rrq8607 INR 1.7 04/04/2015 Pt Xnk2006 Low Intensity - 1.5-2.0 04/04/2015 Pt Ddz9547 Mod intensity - 2.0-3.0 04/04/2015 Pt Bql0027 Hi intensity - 3.0-4.0 04/04/2015 Pt Jym3166 PT 39.8 seconds 04/01/2015 Pt Vjb8050 INR 4.3 04/01/2015 Pt Vjt8199 Low Intensity - 1.5-2.0 04/01/2015 Pt Wbj0993 Mod intensity - 2.0-3.0 04/01/2015 Pt Nfg6249 Hi intensity - 3.0-4.0 04/01/2015 Metabolic Ord15 [...] Metabolic Ord15 CALCIUM 8.7 mg/dL 02/28/2015 Pt Fbw3177 PT 31.4 seconds 02/28/2015 Pt Wmv7030 INR 3.2 02/28/2015 Pt Hml5189 Low Intensity - 1.5-2.0 02/28/2015 Pt Pqm5545 Mod intensity - 2.0-3.0 02/28/2015 Pt Uah9396 Hi intensity - 3.0-4.0 02/28/2015 Pt Fqz8230 PT 23.2 seconds 01/18/2015 Pt Dog3436 INR 2.1 01/18/2015 Pt Efz3481 Low Intensity - 1.5-2.0 01/18/2015 Pt Wsq0238 Mod intensity - 2.0-3.0 01/18/2015 Pt Qci8556 Hi intensity - 3.0-4.0 01/18/2015 Pt Xjb5259 PT 18.2 seconds 01/10/2015 Pt Qcc0565 INR 1.6 01/10/2015 Pt Iyi1871 Low Intensity - 1.5-2.0 01/10/2015 Pt Yaa9414 Mod intensity - 2.0-3.0 01/10/2015 Pt Ayv3739 Hi intensity - 3.0-4.0 01/10/2015 Review of [...] masses 03/16/2017 None Full Exam - General 1995 [...] 03/24/2018 ADMIN PNEUMOCOCCAL V ACCINE SNOMED CT: 31013611 CPT-4: G0009 03/24/2018 FLU VACC PRSV FREE I NC ANTIG Formatting Model/CDA Sections, Assigned to/Dorothea Tan CPT-4: 83309Phxrmab 03/24/2018 Pneumococcal Polysac charide Vaccine, 23-Valent, Ad CPT-4: 02573 03/24/2018 TRIAMCINOLONE ACET I [place] NOS CPT-4: J3301 06/15/2017 THER/PROPH/DIAG INJ SC/IM CPT-4: 70424 06/15/2017 ADMIN PNEUMOCOCCAL V ACCINE SNOMED CT: 14261433 CPT-4: G0009 03/16/2017 ADMIN INFLUENZA VIRU S VAC CPT-4: G0008 03/16/2017 FLU VAC NO PRSV 4 VA L 3 YRS+ CPT-4: 59398 03/16/2017 PNEUMOCOCCAL VACC [address]: 15107303 CPT-4: 38553 03/16/2017 URINALYSIS NONAUTO W /O SCOPE CPT-4: 35473 08/26/2016 THER/PROPH/DIAG INJ SC/IM CPT-4: 41316 07/22/2016 TRIAMCINOLONE ACET I [place] NOS CPT-4: J3301 07/22/2016 ROCEPHIN, PER 250 MG CPT-4: J0696 07/22/2016 TRIAMCINOLONE ACET I [place] NOS CPT-4: J3301 02/05/2015 Vital Signs Date Vital 08/16/2018 Blood Pressure 1: 104/66 Code: 8480-6 BMI: 32.3 Code: 49326-9 Heart Rate 1: 94 bpm Height: 5'7" SpO2: 96% Weight: 206 lbs 07/11/2018 Blood Pressure 1: 102/68 Code: 8480-6 BMI: 34.5 Code: 90392-5 Heart Rate 1: 101 bpm Height: 5'7" SpO2: 98% Weight: 220 lbs 03/24/2018 Blood Pressure 1: 130/72 Code: 8480-6 BMI: 33.4 Code: 40655-2 Heart Rate 1: 82 bpm Height: 5'7" SpO2: 93% Weight: 213 lbs 11/18/2017 Blood Pressure 1: 128/70 Code: 8480-6 BMI: 33.6 Code: 06241-0 Heart Rate 1: 98 bpm Height: 5'7" SpO2: 97% Weight: 214 lbs 8 oz 09/30/2017 Blood Pressure 1: 100/50 Code: 8480-6 BMI: 34.0 Code: 73434-4 Heart Rate 1: 66 bpm Height: 5'7" SpO2: 96% Weight: 217 lbs 08/17/2017 Blood Pressure 1: 104/60 Code: 8480-6 BMI: 33.7 Code: 89550-8 Heart Rate 1: 99 bpm Height: 5'7" SpO2: 97% Weight: 215 lbs 06/15/2017 Blood Pressure 1: 120/64 Code: 8480-6 BMI: 33.5 Code: 98505-0 Heart Rate 1: 91 bpm Height: 5'7" SpO2: 94% Weight: 214 lbs 04/01/2017 Blood Pressure 1: 110/68 Code: 8480-6 BMI: 154.4 Code: 16641-5 Heart Rate 1: 66 bpm Height: 2'7" SpO2: 95% Weight: 211 lbs 03/16/2017 Blood Pressure 1: 130/72 Code: 8480-6 BMI: 33.0 Code: 77828-9 Heart Rate 1: 95 bpm Height: 5'7" SpO2: 97% Weight: 211 lbs 02/09/2017 Blood Pressure 1: 120/70 Code: 8480-6 BMI: 32.9 Code: 05569-0 Heart Rate 1: 78 bpm Height: 5'7" SpO2: 96% Weight: 210 lbs 10/13/2016 Blood Pressure 1: 118/76 Code: 8480-6 BMI: 32.6 Code: 27282-3 Heart Rate 1: 97 bpm Height: 5'7" SpO2: 98% Weight: 208 lbs 07/31/2016 Blood Pressure 1: 110/64 Code: 8480-6 BMI: 32.1 Code: 67776-0 Heart Rate 1: 79 bpm Height: 5'7" SpO2: 94% Weight: 205 lbs 07/22/2016 Blood Pressure 1: 108/74 Code: 8480-6 BMI: 32.1 Code: 20673-5 Heart Rate 1: 71 bpm Height: 5'7" SpO2: 97% Temperature: 36.9 (C ) / 98.4 (F) Weight: 205 lbs 05/01/2016 Blood Pressure 1: 120/72 Code: 8480-6 BMI: 32.7 Code: 05538-2 Heart Rate 1: 75 bpm Height: 5'7" SpO2: 94% Weight: 209 lbs 04/06/2016 Blood Pressure 1: 10662 Code: 8480-6 BMI: 32.7 Code: 99548-8 Heart Rate 1: 83 bpm Height: 5'7" SpO2: 97% Weight: 209 lbs 03/06/2016 Blood Pressure 1: 11268 Code: 8480-6 BMI: 32.7 Code: 54251-0 Heart Rate 1: 90 bpm Height: 5'7" SpO2: 97% Weight: 209 lbs 03/03/2016 Blood Pressure 1: 120/62 Code: 8480-6 BMI: 32.7 Code: 85805-2 Heart Rate 1: 92 bpm Height: 5'7" SpO2: 98% Weight: 209 lbs 02/07/2016 Blood Pressure 1: 110/64 Code: 8480-6 BMI: 32.7 Code: 99525-2 Heart Rate 1: 87 bpm Height: 5'7" SpO2: 97% Weight: 209 lbs 12/13/2015 Blood Pressure 1: 110/64 Code: 8480-6 BMI: 33.5 Code: 95522-9 Heart Rate 1: 90 bpm Height: 5'7" SpO2: 97% Weight: 214 lbs 12/03/2015 Blood Pressure 1: 132/76 Code: 8480-6 BMI: 33.4 Code: 84151-1 Heart Rate 1: 82 bpm Height: 5'7" SpO2: 99% Weight: 213 lbs 11/20/2015 Blood Pressure 1: 108/68 Code: 8480-6 BMI: 32.4 Code: 00266-6 Heart Rate 1: 77 bpm Height: 5'7" SpO2: 97% Weight: 207 lbs 09/17/2015 Blood Pressure 1: 122/76 Code: 8480-6 BMI: 33.0 Code: 23213-8 Heart Rate 1: 91 bpm Height: 5'7" SpO2: 97% Weight: 211 lbs 05/31/2015 Blood Pressure 1: 128/82 Code: 8480-6 BMI: 33.4 Code: 97799-1 Heart Rate 1: 98 bpm Height: 5'7" SpO2: 99% Weight: 213 lbs 02/05/2015 Blood Pressure 1: 128/80 Code: 8480-6 BMI: 32.6 Code: 36333-6 Heart Rate 1: 86 bpm Height: 5'7" SpO2: 97% Weight: 208 lbs 11/20/2014 Blood Pressure 1: 128/90 Code: 8480-6 BMI: 30.9 Code: 70787-0 Heart Rate 1: 94 bpm Height: 5'7" [...] ongoing 11/20/2015 None Hospital Follow Up _ [facility] er: fall 09/17/2015 None Hospital Follow [...] Findings Denies fever 05/31/2015 None hypothyroid 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 P ATIENT, LEVEL IV Diagnosis: Essential (primary) hypertension[ICD10: I10] Diagnosis: Atrophy of thyroid (acquired)[ICD10: E03.4] Diagnosis: Sebaceous cyst[ICD10: L72.3] Diagnosis: Chronic atrial fibrillation[ICD10: I48.2] Diagnosis: FPC (current) use of anticoagulants[ICD10: Z79.01] Valerie Pisano MD, [facility] CPT-4: 10861 08/16/2018 ([id number]) 41940 EST. P ATIENT, LEVEL IV Diagnosis: Atrophy of thyroid (acquired)[ICD10: E03.4] Diagnosis: Essential (primary) hypertension[ICD10: I10] Diagnosis: Other fatigue[ICD10: R53.83] Diagnosis: Localized edema[ICD10: R60.0] Valerie Pisano MD, [facility] CPT-4: 74999 07/11/2018 ([id number]) 29851 EST. P ATIENT, LEVEL IV Diagnosis: Essential (primary) hypertension[ICD10: I10] Diagnosis: Atrophy of thyroid (acquired)[ICD10: E03.4] Diagnosis: Chronic atrial fibrillation[ICD10: I48.2] Valerie Pisano MD, C CPT-4: 99607 03/24/2018 ([id number]) 81750 EST. P ATIENT, LEVEL IV Diagnosis: Essential (primary) hypertension[ICD10: I10] Diagnosis: Atrophy of thyroid (acquired)[ICD10: E03.4] Diagnosis: Chronic atrial fibrillation[ICD10: I48.2] Valerie Pisano MD, [facility] CPT-4: 25031 11/18/2017 [id number] EST. PATIENT, LEVEL IV Diagnosis: Localized edema[ICD10: R60.0] Roxie Pisano MD, [facility] CPT-4: 26888 09/30/2017 ([id number]) 35379 EST. P ATIENT, LEVEL III Diagnosis: Essential (primary) hypertension[ICD10: I10] Valerie Pisano MD, C CPT-4: 52418 08/17/2017 ([id number]) 27873 EST. P ATIENT, LEVEL IV Diagnosis: Essential (primary) hypertension[ICD10: I10] Diagnosis: Atrophy of thyroid (acquired)[ICD10: E03.4] Diagnosis: Chronic atrial fibrillation[ICD10: I48.2] Diagnosis: Cervicalgia[ICD10: M54.2] Diagnosis: Other muscle spasm[ICD10: M62.838] Valerie Pisano MD, [facility] CPT- 4: 37190 06/15/2017 [id number] EST. PATIENT, LEVEL III Diagnosis: Laceration without foreign body of other finger without damage to nail, initial encounter[ICD10: S61.218A] Roxie Pisano MD, [facility] CPT-4: 26473 04/01/2017 ([id number]) [id number] EST. 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 PATIENT, LEVEL III Diagnosis: Other acute sinusitis[ICD10: J01.80] Diagnosis: Other allergic rhinitis[ICD10: J30.89] Roxie Pisano MD, [facility] CPT-4: 50753 07/31/2016 ([id number]) 82043 EST. P ATIENT, LEVEL III Diagnosis: Acute recurrent maxillary sinusitis[ICD10: J01.01] Valerie Pisano MD, C CPT-4: 08794 07/22/2016 [id number] EST. PATIENT, LEVEL IV Diagnosis: Essential (primary) hypertension[ICD10: I10] Diagnosis: Other allergic rhinitis[ICD10: J30.89] Diagnosis: Localized edema[ICD10: R60.0] Roxie Pisano MD, [facility] CPT-4: 56523 05/01/2016 [id number] EST. PATIENT, LEVEL III Diagnosis: Cellulitis of left lower limb[ICD10: L03.116] Diagnosis: Localized edema[ICD10: R60.0] Roxie Pisano MD, [facility] CPT-4: 19988 04/06/2016 ([id number]) Miscellaneou s no charge Diagnosis: Cellulitis of left lower limb[ICD10: L03.116] Diagnosis: Localized edema[ICD10: R60.0] Roxie Pisano MD, [facility] CPT-4: 82614 03/10/2016 ([id number]) Miscellaneou s no charge Diagnosis: Cellulitis of left lower limb[ICD10: L03.116] Roxie Pisano MD, [facility] CPT-4: 54782 03/06/2016 91967 EST. PATIENT, LEVEL IV Diagnosis: Cellulitis of left lower limb[ICD10: L03.116] Diagnosis: Localized edema[ICD10: R60.0] Roxie Pisano MD, [facility] CPT-4: 03196 03/03/2016 ([id number]) 36850 EST. 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 P ATIENT, LEVEL III Diagnosis: Iliotibial band syndrome, right leg[ICD10: M76.31] Diagnosis: Localized edema[ICD10: R60.0] Brielle Pisano MD, [facility] CPT- 4: 93576 12/13/2015 ([id number]) 07917 EST. P ATIENT, LEVEL III Diagnosis: Localized edema[ICD10: R60.0] Diagnosis: Essential (primary) hypertension[ICD10: I10] Brielle Pisano MD, [facility] CPT-4: 00873 12/03/2015 ([id number]) 16911 EST. P ATIENT, LEVEL IV Diagnosis: FPC (current) use of anticoagulants[ICD10: Z79.01] Diagnosis: Other skin changes[ICD10: R23.8] Diagnosis: Localized edema[ICD10: R60.0] Diagnosis: Pain in right foot[ICD10: M79.671] Valerie Pisano MD, [facility] CPT- 4: 46353 11/20/2015 14591 EST. PATIENT, LEVEL IV Diagnosis: Essential (primary) hypertension[ICD10: I10] Diagnosis: FPC (current) use of anticoagulants[ICD10: Z79.01] Diagnosis: Muscle spasm of back[ICD10: M62.830] Roxie Pisano MD, [facility] CPT- 4: 64409 09/17/2015 ([id number]) 32184 EST. P ATIENT, LEVEL IV Diagnosis: Localized edema[ICD10: R60.0] Diagnosis: Other specified hypothyroidism[ICD10: E03.8] Diagnosis: Essential (primary) hypertension[ICD10: I10] Brielle Pisano MD, [facility] CPT-4: 43085 05/31/2015 ([id number]) 44636 EST. P ATIENT, LEVEL III Diagnosis: ALLERGIC RHINITIS[ICD9: 477.9] Diagnosis: ESSENTIAL HYPERTENSION[ICD9: 401.9] Brielle Pisano MD, [facility] CPT-4: 93585 02/05/2015 ([id number]) OFFICE VISI T, NEW - LEVEL 4 Diagnosis: ESSENTIAL HYPERTENSION[ICD9: 401.9] Diagnosis: HYPOTHYROIDISM[ICD9: 244.9] Diagnosis: ACTINIC KERATOSIS[ICD9: 702.0] Valerie Pisano MD, [facility] CPT-4: 64932 11/20/2014 Plan of Care Planned Activity Notes [...] 4mg daily. 08/16/2018 Appointment: Valerie Pisano WPtel: [address] [place], [place] [id number] (15 min) Moderate 08/16/2018 Patient Education: Patient Medication Summary Completed 08/16/2018 Patient Education: Hypertension Completed 08/16/2018 Patient Education: Patient Medication Summary Completed 07/29/2018 Appointment: Brielle Cavazos WPtel: [phone] [id number] (15 min) Moderate 07/12/2018 Visit Plan: Hypertension [...] one pill twice daily. 07/11/2018 [phone] [phone] ([facility] Moderate 07/11/2018 Patient Education: [...] given today. 03/24/2018 Appointment: Valerie Pisano WPtel: [phone] [place], [place] [id number] (15 min) Moderate 03/24/2018 Patient Education: [...] of control. 11/18/2017 Appointment: Valerie Pisano WPtel: [address] [place], [place] [id number] (15 min) Moderate 11/18/2017 Patient Education: Patient Medication Summary Completed 11/18/2017 Referral: Via [facility] [place] [facility] WPtel: 1 [facility] Pt notified at appointment Appointment Confirmed 10/01/2017 [...] Boots 09/30/2017 Appointment: [phone] (30 min) Complex 09/30/2017 Patient Education: Patient Medication Summary Completed 09/30/2017 Care Plan: Referral Order SNOMED-CT : [id number] Pending 09/30/2017 Visit Plan: Hypertension - well [...] this time. 08/17/2017 Appointment: [phone] (15 min) Moderate 08/17/2017 Patient Education: [...] muscles. allergies - kenalog 40mg im bristol [facility] squibb - lot # [id number] expires september 2018 06/15/2017 Visit Plan: Hypertension [...] muscles. 06/15/2017 Appointment: Valerie Pisano WPtel: [phone] [facility] (15 min) Moderate 06/15/2017 Patient Education: Patient Medication Summary Completed 06/15/2017 Care Plan: Referral Order SNOMED-CT : [id number] Pending 06/15/2017 Appointment: Nurse Visit 04/05/2017 Appointment: [...] booster. 04/01/2017 Appointment: Roxie Cazares WPtel: [phone] [facility] (15 min) Moderate 04/01/2017 Patient Education: [...] WPtel: [phone] [facility] (15 min) Moderate 03/16/2017 Patient Education: Patient [...] allergy spray. 02/09/2017 Appointment: Valerie Pisano [facility]Ptel[facility] [place] ([place] min) Moderate 02/09/2017 Patient Education: [...] nystatin 10/13/2016 Appointment: Valerie Pisano WPtel: [phone] [facility] (15 min) Moderate 10/13/2016 Patient Education: Patient Medication Summary Completed 10/13/2016 Patient Education: Obesity Completed 10/13/2016 Patient Education: Hypertension Completed 10/13/2016 Care Plan: Urine Culture Pending 08/31/2016 Appointment: Roxie Cazares WPtel: [phone] [facility] Lab Draw 08/27/2016 Appointment: Nurse Visit [...] 07/31/2016 Appointment: Brielle Cavazos WPtel: [phone] [phone] [place] (30 min) Complex 07/31/2016 Patient Education: Patient Medication Summary Completed 07/31/2016 Patient Education: Obesity Completed 07/31/2016 Visit Plan: Sinusitis - Pt has acut e infection - pain in face, maxillary region, Pt informed to use decongestant, RX given to patient, sinus rinses also recommended. Call if symptoms do not show improvement. 07/22/2016 Appointment: Valerie Pisano WPtel: [phone] [facility] (15 min) Moderate 07/22/2016 Patient Education: Patient [...] peripheral edema. 05/01/2016 Appointment: Brielle Cavazos WPtel: [phone] (30 min) Complex 05/01/2016 Patient Education: [...] edema. 04/06/2016 Appointment: Roxie Cazares WPtel: [phone] [facility] (30 min) Complex 04/06/2016 Patient Education: Patient Medication Summary Completed 04/06/2016 Patient Education: Obesity Completed 04/06/2016 Visit Plan: left foot - improved - pt finished with antibiotics - continue to monitor - notify clinic with any concerns. Repeat INR today. 03/10/2016 Appointment: Brielle Cavazos WPtel: [address] [place] [address] (30 min) Complex 03/10/2016 Patient Education: Patient Medication Summary Completed 03/10/2016 Visit Plan: Cellulitis - continue w ith oral antibiotics as previously directed, return to clinic as previously directed, call for acute change in symptoms, worsening redness, warmth, discharge. 03/06/2016 Appointment: Brielle Cavazos WPtel: [address] [place] [address] (15 min) Moderate 03/06/2016 Patient Education: Patient Medication Summary Completed 03/06/2016 Patient Education: Obesity Completed 03/06/2016 Visit Plan: Cellulitis - continue w [facility] oral antibiotics as previously directed, return to clinic as previously directed, call for acute change in symptoms, worsening redness, warmth, discharge. 03/03/2016 Appointment: Brielle Cavazos WPtel: [address] [place] [address] (15 min) Moderate 03/03/2016 Patient Education: Patient [...] and 3.5. 02/07/2016 Appointment: Brielle Cavazos WPtel: [address] [place] [address] (30 min) Complex 02/07/2016 Patient Education: Patient Medication Summary Completed 02/07/2016 Patient Education: Obesity Completed 02/07/2016 Patient Education: Hypertension Completed 02/07/2016 Appointment: Brielle Cavazos WPtel: [address] [place], [place] [id number] [place] [address] (30 min) Complex 02/04/2016 Visit Plan: Iliotibial [...] peripheral edema. 12/13/2015 Appointment: Brielle Cavazos WPtel: [facility] [place] [address] (15 min) Moderate 12/13/2015 Patient Education: Patient [...] at home. 12/03/2015 Appointment: Brielle Cavazos WPtel: [phone] (30 min) Complex 12/03/2015 Patient Education: [...] Hypertension Completed 02/05/2015 Appointment: Valerie Pisano WPtel: [address] [place], [place] [address] (15 min) Moderate 01/29/2015 Visit Plan: Hypertension [...] control. 11/20/2014 Appointment: Val[facility] P[facility]ano [facility]el[phone] [place] [place] [place] ([place] New Patient 11/20/2014 Patient Education: Patient Medication Summary Completed 11/20/2014 Patient Education: Hypertension Completed 11/20/2014 Patient Education: Patient Medication Summary Completed 10/19/2014 Referral: [facility] WPtel: Referral Appointment Requested Referral: [facility] Ref[facility] Appointment Confirmed Instructions Comment . [...] the office. get blood work one w [place] before next appt - fasting labs Decrease [...] muscles. allergies - kenalog 40mg im bristol [facility] squibb - lot # [id number] expires september 2018 . Hypertension - wel [...] worsening redness, warmth, discharge. . Cellulitis - dyalin nue with oral antibiotics as previously directed, [...]
--- OUTSIDE RECORDS SUMMARY | 2019-09-12 11:35 | XMS REPORT | CCD ---
Author Author Clara Pisano Organization [facility] Address [address] [place] [address] Phone Care Team Providers Care Insurance Healthcare Consultant Name Role Phone PP Unavailable CCM Unavailable Summary Purpose Interface Exchange Insurance Providers Payer name Policy type / Coverage type Covered republican ID Effective Begin Date Effective End Date WPS Medicare Part B Medicare Part B [id number] 2018 Unknown [employer] Medicare Part B [id number] Unknown Family history Sister Diagnosis Age At Onset defect Unknown Breast cancer Unknown Daughter Diagnosis Age At Onset Breast cancer Unknown Mother Diagnosis Age At Onset No Family Disease Entered N/A Social History Social History Element Codes Description Effective Dates Marital status Unknown M arried Lane 11/20/2014 Number of children Unknown 6 11/20/2014 Employment Unknown Retir ed 11/20/[address]: 3105034 Quit over 10 years ago 1963 11/20/2014 [...] ICD-9: 401.9 ICD-10: I10 Active 04/30/2016 Unknown 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 ICD-9: V58.61 ICD-10: [...] Unknown HYPOTHYROIDISM ICD-9: 244.9 Active 11/19/2014 Unknown USP current us e of anticoagulant therapy ICD-9: V58.61 Active 10/19/2014 Unknown Problems Condition Codes Effectiv e Dates Condition Status Atrophy of thyroid ( acquired) ICD-9: 244.8 ICD-10: E03.4 02/09/2017 Active Chronic atrial fibri llation ICD-9: 427.31 ICD-10: I48.2 02/06/2016 Active Essential (primary) hypertension ICD-9: 401.9 ICD-10: I10 04/30/2016 Active USP (current) use of anticoagulants ICD-9: V58.61 ICD-10: [...] 11/19/2014 Active HYPOTHYROIDISM ICD-9: 244.9 11/19/2014 Active USP current us e of anticoagulant therapy ICD-9: V58.61 10/19/2014 Active Medications Medication Codes Instruc tions Start Date Stop Date Sta Fill Instructions Coumadin 4 mg tablet RxNorm: 958865 1 Tablet(s) PO daily 08/16/2018 08/10/2019 Active this is an update to her RX - she will l et you know when she needs refill triamcinolone aceton sreekanth 0.025 % topical cream RxNorm: 3443460 1 Application TOP QI D 08/16/2018 No Stop Date Active levothyroxine 125 mc g tablet RxNorm: 777936 TAKE ONE TABLET BY [facility] DAILY ON WEDNESDAY, WED, AND WEDNESDAY, AND 1/2 TABLET ON , , WED AND WEDNESDAY. TAKE ON AN EMPTY STOMACH 08/04/2018 04/30/2019 Active meclizine 25 mg tablet RxNorm: 371709 1 Tablet(s) PO TID as needed Dizziness 07/22/2018 No Stop Date Active meclizine 25 mg tablet RxNorm: 879674 1 Tablet(s) PO TID as needed Dizziness 07/19/2018 07/21/2018 In active furosemide 40 mg tablet RxNorm: 532260 1 Tablet(s) BID take 1.5 tabs twice a da y x 7 days then 1 pill daily thereafter 07/11/2018 02/05/2019 Active Coumadin 4 mg tablet RxNorm: 623002 1 Tablet(s) PO daily except 1.5 pills on WEDNESDAY AND Wednesday07/11/2018 08/15/2018 Inactive this is an update to her RX - she will let you know when she needs refill warfarin 5 mg tablet RxNorm: 952426 Tablet(s) TAKE ONE TABLET BY MOUTH DAILY EXCEPT / TAKE 4 MG 04/06/2018 08/22/2019 Active diltiazem 60 mg tablet RxNorm: 128032 1/2 Tablet(s) PO QID 03/24/2018 No Stop Date Active levothyroxine 125 mc g tablet RxNorm: 775386 TAKE ONE TABLET BY [facility] DAILY ON WEDNESDAY, WED, AND WEDNESDAY, AND 1/2 TABLET ON , , WED AND WEDNESDAY. TAKE ON AN EMPTY STOMACH 02/02/2018 07/31/2018 Inactive Coumadin 4 mg tablet RxNorm: 901043 TAKE ONE TABLET BY MOUTH DAILY ON AND Wednesday10/14/2017 07/10/2018 Inactive nystatin 100,000 uni t/gram topical cream RxNorm: 021359 1 Application TOP TID 08/17/2017 No Stop Date Active Voltaren 1 % topical gel RxNorm: 787174 2 Gram(s) TOP TID luiz ly to shoulder and neck 08/17/2017 No Stop Date Active triamcinolone aceton sreekanth 0.025 % topical cream RxNorm: 6779307 1 Application TOP BI D 08/17/2017 08/15/2018 In active levothyroxine 125 mc g tablet RxNorm: 253913 1 Tablet(s) UD 1 pill wed/wed/wed, 1/2 pill //wed/wed take ON AN EMPTY STOMACH 08/05/2017 02/01/2018 Inactive Coumadin 4 mg tablet RxNorm: 127238 1 Tablet(s) PO Wed/07/29/2017 10/13/2017 Inactive warfarin 5 mg tablet RxNorm: 622369 TAKE 1 AND 1/2 TABLETS BY MOUTH ON AND WEDNESDAY. TAKE ONLY 1 TABLET BY MOUTH ALL OTHER DAYS OF THE WEEK 07/12/2017 04/05/2018 In active furosemide 40 mg tablet RxNorm: 243926 Tablet(s) BID TAKE ONE TABLET BY MOUTH D AILY 06/15/2017 07/10/2018 Inactive Voltaren 1 % topical gel RxNorm: 813725 2 Gram(s) TOP TID luiz ly to shoulder and neck 06/15/2017 08/16/2017 Inactive Keflex 500 mg capsule RxNorm: 869346 1 Capsule(s) PO TID 04/01/2017 04/07/2017 Inactive furosemide 40 mg tablet RxNorm: 876785 TAKE ONE TABLET BY MOUTH DAILY 03/18/2017 06/14/2017 In active Claritin-D 12 Hour 5 mg-120 mg tablet,extended release RxNorm: 2708289 1 Tablet(s) PO BID 03/16/2017 05/14/2017 Inactive Lipitor 20 mg tablet RxNorm: 094164 1 Tablet(s) PO daily 02/09/2017 03/10/2017 Inactive lisinopril 2.5 mg ta blet RxNorm: 152240 1 Tablet(s) PO daily 02/09/2017 03/10/2017 Inactive Nasonex 50 mcg/actua tion [place] RxNorm: 6567883 1 [place] NASAL BID 02/09/2017 09/06/2017 Inactive levothyroxine 125 mc g tablet RxNorm: 579632 1 Tablet(s) UD 1 pill wed/wed/wed, 1/2 pill //wed/sun take ON AN EMPTY STOMACH 02/09/2017 08/04/2017 Inactive fluorouracil 5 % top ical cream RxNorm: 515277 1 Application TOP BID 02/09/2017 02/18/2017 Inactive potassium chloride E R 20 mEq tablet,extended release RxNorm: 438483 Tablet(s) TAKE ONE TABLET BY MOUTH DAILY 02/08/2017 02/02/2018 Inactive warfarin 5 mg tablet RxNorm: 406034 TAKE 1 AND 1/2 TABLETS BY MOUTH ON AND WEDNESDAY. TAKE ONLY 1 TABLET BY MOUTH ALL OTHER DAYS OF THE WEEK 12/14/2016 05/30/2017 In active potassium chloride E R 20 mEq tablet,extended release RxNorm: 269360 TAKE ONE TABLET BY MOUTH DAILY 10/29/2016 01/26/2017 Inactive warfarin 5 mg tablet RxNorm: 789203 TAKE 1 AND 1/2 TABLETS BY MOUTH ON AND WEDNESDAY. TAKE ONLY 1 TABLET BY MOUTH ALL OTHER DAYS OF THE WEEK 10/27/2016 12/13/2016 In active nystatin 100,000 uni t/gram topical cream RxNorm: 002490 1 Application TOP TID 10/13/2016 08/16/2017 In active nitrofurantoin 50 mg capsule RxNorm: 306837 1 Capsule(s) PO BID 09/04/2016 09/03/2016 Inactive nitrofurantoin macro crystal 50 mg capsule RxNorm: 133015 1 Capsule(s) PO BID 09/04/2016 09/10/2016 In active Cipro 500 mg tablet RxNorm: 896880 1 Tablet(s) PO BID 08/26/2016 10/12/2016 Inactive Zyrtec 10 mg tablet RxNorm: 4086721 1 Tablet(s) PO daily 07/31/2016 08/29/2016 Inactive prednisone 20 mg tablet RxNorm: 584588 2 Tablet(s) PO daily 07/31/2016 08/02/2016 Inactive Kenalog 40 mg/mL zohra pension for injection RxNorm: 8019077 Milliliter(s) Inj 07/22/2016 07/22/2016 In active ceftriaxone 500 mg s olution for injection RxNorm: 7541856 Inj 07/22/2016 07/22/2016 Inactive Flonase Allergy Reli ef 50 mcg/actuation nasal spray,suspension RxNorm: 1680875 1 [place] NASAL BID 07/22/2016 08/20/2016 Inactive azithromycin 250 mg tablet RxNorm: 172789 2 Tablet(s) PO on day #1, then 1 pill daily x 4 days 07/22/2016 10/12/2016 Inactive warfarin 5 mg tablet RxNorm: 132280 TAKE 1 AND 1/2 TABLETS BY MOUTH ON AND WEDNESDAY. TAKE ONLY 1 TABLET BY MOUTH ALL OTHER DAYS OF THE WEEK 07/09/2016 09/30/2016 In active levothyroxine 125 mc g tablet RxNorm: 505150 Tablet(s) TAKE ONE TA BLET BY MOUTH DAILY ON AN EMPTY STOMACH 06/23/2016 02/08/2017 Inactive levothyroxine 125 mc g tablet RxNorm: 181465 TAKE ONE TABLET BY [facility] DAILY ON AN EMPTY STOMACH 06/23/2016 06/22/2016 Inactive levothyroxine 125 mc g tablet RxNorm: 531947 TAKE ONE TABLET BY [facility] DAILY ON AN EMPTY STOMACH 06/23/2016 08/04/2017 Inactive cetirizine 10 mg tablet RxNorm: 1792880 TAKE ONE TABLET BY MOUTH DAILY 06/16/2016 10/13/2016 In active furosemide 40 mg tablet RxNorm: 197360 Tablet(s) TAKE ONE TABLET BY MOUTH DAILY 06/05/2016 12/01/2016 In active cetirizine 10 mg tablet RxNorm: 7095785 1 Tablet(s) PO daily 05/01/2016 05/30/2016 Inactive Levaquin 250 mg tablet RxNorm: 529756 Tablet(s) PO 2 pills day one and 1 pill day 2-7 04/06/2016 07/21/2016 Inactive warfarin 5 mg tablet RxNorm: 104663 Tablet(s) 1/2 TABLETS BY MOUTH ON AND WEDNESDAY. TAKE ONLY 1 TABLET BY MOUTH ALL OTHER DAYS OF THE WEEK 03/18/2016 07/07/2016 In active triamcinolone aceton sreekanth 0.025 % topical cream RxNorm: 5799594 1 Application TOP BI D 03/10/2016 08/16/2017 In active potassium chloride E R 20 mEq tablet,extended release RxNorm: 480111 1 Tablet(s) PO daily 03/04/2016 06/01/2016 Inactive Levaquin 250 mg tablet RxNorm: 046270 Tablet(s) PO 2 pills day one and 1 pill day 2-7 03/04/2016 04/05/2016 Inactive Levaquin 250 mg tablet RxNorm: 586707 Tablet(s) PO 2 pills day one and 1 pill day 2-7 03/03/2016 03/03/2016 Inactive potassium chloride E R 20 mEq tablet,extended release RxNorm: 230788 1 Tablet(s) PO daily 03/03/2016 03/03/2016 Inactive Cipro 500 mg tablet RxNorm: 082729 1 Tablet(s) PO BID 02/20/2016 07/21/2016 Inactive Cipro 500 mg tablet RxNorm: 018785 1 Tablet(s) PO BID 02/20/2016 02/19/2016 Inactive furosemide 40 mg tablet RxNorm: 337027 TAKE ONE TABLET BY MOUTH DAILY 01/27/2016 01/26/2016 In active warfarin 5 mg tablet RxNorm: 339947 TAKE 1 AND 1/2 TABLETS BY MOUTH ON AND WEDNESDAY. TAKE ONLY 1 TABLET BY MOUTH ALL OTHER DAYS OF THE WEEK 01/27/2016 01/26/2016 In active furosemide 40 mg tablet RxNorm: 488700 TAKE ONE TABLET BY MOUTH DAILY 01/27/2016 06/04/2016 In active warfarin 5 mg tablet RxNorm: 226893 TAKE 1 AND 1/2 TABLETS BY MOUTH ON AND WEDNESDAY. TAKE ONLY 1 TABLET BY MOUTH ALL OTHER DAYS OF THE WEEK 01/27/2016 03/17/2016 In active potassium chloride E R 20 mEq tablet,extended release RxNorm: 058280 1 Tablet(s) PO daily 11/20/2015 03/02/2016 Inactive furosemide 40 mg tablet RxNorm: 752515 TAKE ONE TABLET BY MOUTH DAILY 11/12/2015 01/26/2016 In active Zovirax 5 % topical cream RxNorm: 581940 TOP QID 0 09/24/2015 09/23/2015 Inactive Zovirax 5 % topical cream RxNorm: 912053 TOP QID 0 09/24/2015 11/19/2015 Inactive nystatin 100,000 uni t/gram topical cream RxNorm: 437693 1 Application TOP TID 09/17/2015 10/12/2016 In active warfarin 5 mg tablet RxNorm: 552213 TAKE 1 AND 1/2 TABLETS BY MOUTH ON AND WEDNESDAY. TAKE ONLY 1 TABLET BY MOUTH ALL OTHER DAYS OF THE WEEK 08/19/2015 01/05/2016 In active loratadine 10 mg tablet RxNorm: 913442 1 Tablet(s) PO daily 07/30/2015 07/23/2016 Inactive loratadine 10 mg tablet RxNorm: 697733 1 Tablet(s) PO daily 07/30/2015 07/29/2015 Inactive furosemide 40 mg tablet RxNorm: 963746 TAKE ONE TABLET BY MOUTH DAILY 06/24/2015 11/11/2015 In active levothyroxine 125 mc g tablet RxNorm: 280205 1 Tablet(s) PO daily 05/31/2015 05/24/2016 Inactive furosemide 40 mg tablet RxNorm: 830089 1 Tablet(s) PO daily 04/05/2015 06/23/2015 Inactive warfarin 5 mg tablet RxNorm: 033652 TAKE 1 AND 1/2 TABLETS BY MOUTH ON AND WEDNESDAY. TAKE ONLY 1 TABLET BY MOUTH ALL OTHER DAYS OF THE WEEK 02/12/2015 07/29/2015 In active Flonase Allergy Reli ef 50 mcg/actuation nasal spray,suspension RxNorm: 2 [place] NASAL daily 02/05/2015 03/06/2015 Inactive Kenalog 40 mg/mL zohra pension for injection RxNorm: 0216559 Milliliter(s) Inj 02/05/2015 02/05/2015 In active warfarin 5 mg tablet RxNorm: 419399 Take 7.5mg (1 1/2 tablets) Wednesday and and 1 Tablet(s) PO (5mg) all other days 01/11/2015 02/09/2015 Inactive levothyroxine 125 mc g tablet RxNorm: 411293 1 Tablet(s) PO every other day 01/01/2015 05/30/2015 In active alternate with 150 levothyroxine 150 mc g tablet RxNorm: 396188 1 Tablet(s) PO every other day 01/01/2015 05/30/2015 In active alternate with 125 loratadine 10 mg tablet RxNorm: 325209 Tablet(s) PO as needed No Start Date Active Fish Oil 1,000 mg ca psule RxNorm: 1 Capsule(s) PO TID No Start Date Active magnesium 250 mg tablet RxNorm: 1 Tablet(s) PO daily No Start Date Active Vitamin D3 2,000 uni t tablet RxNorm: 436047 2 Tablet(s) PO daily No Start Date Active Fosamax 35 mg tablet RxNorm: 699988 1 Tablet(s) PO QW No Start Date Active levothyroxine 125 mc g tablet RxNorm: 041235 1 Tablet(s) PO daily No Start Date 12/31/2014 Inactive levothyroxine 150 mc g tablet RxNorm: 410779 1 Tablet(s) PO daily No Start Date 12/31/2014 Inactive diltiazem 60 mg tablet RxNorm: 428607 1 Tablet(s) PO QID No Start Date 03/23/2018 Inactive meclizine 25 mg tablet RxNorm: 738382 1 Tablet(s) PO TID as needed Dizziness No Start Date 07/18/2018 Inactive furosemide 40 mg tablet RxNorm: 701630 1 Tablet(s) PO daily No Start Date 04/04/2015 Inactive potassium chloride RxNorm: miscellaneous No Start Date 11/19/2015 Inactive Vitamin D2 oral RxNorm: 4018 oral No Start Date 05/31/2015 Inactive warfarin 5 mg tablet RxNorm: 979967 1 Tablet(s) PO daily No Start Date 01/10/2015 Inactive Coumadin 4 mg tablet RxNorm: 230367 1 Tablet(s) PO Wed/ No Start Date 07/28/2017 Inactive Medication Administered Medication Codes Instruc tions Start Date Status ceftriaxone 500 mg solution for injection RxNorm: 6921098 07/22/2016 No longer A ctive Kenalog 40 mg/mL suspension for injection RxNorm: 5817934 Milliliter 07/22/2016 No longer Active Kenalog 40 mg/mL suspension for injection RxNorm: 8741972 Milliliter 02/05/2015 No longer Active Immunizations Vaccine [...] (acquired) ICD-10 : E03.4 ICD-9: 244.8 08/16/2018 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 ICD-10: Z79.01 ICD-9: [...] 244.9 11/20/2014 ACTINIC KERATOSIS ICD-9: 702.0 11/20/2014 supervisor intermediates current use of anticoagulant therapy ICD-9: V58.61 [...] Code Item Item Code Result Date Pt Pri6458 PT 13.1 seconds 09/07/2018 Pt Ofu6183 INR 1.0 09/07/2018 Pt Nkz8225 Low Intensity - 1.5-2.0 09/07/2018 Pt Xyw7161 Mod intensity - 2.0-3.0 09/07/2018 Pt Gtu0718 Hi intensity - 3.0-4.0 09/07/2018 Pt Grf5984 PT 24.1 seconds 08/23/2018 Pt Ikt5404 INR 2.2 08/23/2018 Pt Qsm2570 Low Intensity - 1.5-2.0 08/23/2018 Pt Xup2238 Mod intensity - 2.0-3.0 08/23/2018 Pt Xmr9974 Hi intensity - 3.0-4.0 08/23/2018 Pt Vno1040 PT 30.9 seconds 08/16/2018 Pt Asf8011 INR 3.0 08/16/2018 Pt Ali0974 Low Intensity - 1.5-2.0 08/16/2018 Pt Cqb3148 Mod intensity - 2.0-3.0 08/16/2018 Pt Juo6753 Hi intensity - 3.0-4.0 08/16/2018 Pt Pwt0327 PT 29.5 seconds 08/01/2018 Pt Uki1194 INR 2.8 08/01/2018 Pt Qwn7103 Low Intensity - 1.5-2.0 08/01/2018 Pt Wxr0403 Mod intensity - 2.0-3.0 08/01/2018 Pt Yrn7223 Hi intensity - 3.0-4.0 08/01/2018 Pt Bdc9209 PT 24.2 seconds 07/25/2018 Pt Qjj7302 INR 2.2 07/25/2018 Pt Gjq4130 Low Intensity - 1.5-2.0 07/25/2018 Pt Cfa2440 Mod intensity - 2.0-3.0 07/25/2018 Pt Tot3283 Hi intensity - 3.0-4.0 07/25/2018 Pt Veo1639 PT 38.6 seconds 07/19/2018 Pt Vxn8414 INR 4.0 07/19/2018 Pt Vyq6678 Low Intensity - 1.5-2.0 07/19/2018 Pt Gfl2268 Mod intensity - 2.0-3.0 07/19/2018 Pt Ttg1088 Hi intensity - 3.0-4.0 07/19/2018 Pt Tnl3905 PT 25.7 seconds 07/11/2018 Pt Gmq9276 INR 2.4 07/11/2018 Pt Jdm8715 Low Intensity - 1.5-2.0 07/11/2018 Pt Rys5567 Mod intensity - 2.0-3.0 07/11/2018 Pt Skq0654 Hi intensity - 3.0-4.0 07/11/2018 Pt Psc4636 PT 18.5 seconds 07/08/2018 Pt Vdi0996 INR 1.6 07/08/2018 Pt Itf6403 Low Intensity - 1.5-2.0 07/08/2018 Pt Bqx3834 Mod intensity - 2.0-3.0 07/08/2018 Pt Aba3924 Hi intensity - 3.0-4.0 07/08/2018 Pt Dlf9821 PT 27.3 seconds 06/29/2018 Pt Aos0304 INR 2.6 06/29/2018 Pt Jiz2260 Low Intensity - 1.5-2.0 06/29/2018 Pt Dar2407 Mod intensity - 2.0-3.0 06/29/2018 Pt Yaa1372 Hi intensity - 3.0-4.0 06/29/2018 Pt Rrm0540 PT 24.0 seconds 05/26/2018 Pt Tmh4758 INR 2.2 05/26/2018 Pt Zlw2921 Low Intensity - 1.5-2.0 05/26/2018 Pt Pzx5509 Mod intensity - 2.0-3.0 05/26/2018 Pt Uez2731 Hi intensity - 3.0-4.0 05/26/2018 Tsh Ord6 [...] 29.6 pg 03/25/2018 Cbc With Differential Ord2 [place]% 9.5 % 03/25/2018 Cbc With Differential Ord2 [...] 2.19 K/ul 03/25/2018 Cbc With Differential Ord2 [place] ABS# 0.8 K/ul 03/25/2018 Cbc With Differential Ord2 Eos ABS# 0.3 K/ul 03/25/2018 Cbc With Differential Ord2 Baso ABS# 0.0 K/ul 03/25/2018 Lipid Ord30 CHOL 156 mg/dL 03/25/2018 Lipid Ord30 HDL 52.0 mg/dl 03/25/2018 Lipid Ord30 TRIG 98 mg/dL 03/25/2018 Lipid Ord30 LDL 84 mg/dL 03/25/2018 Lipid Ord30 C/HDL 3.0 Ratio 03/25/2018 Free T4 Npe570 FREE T4 1.73 ng/dL 03/25/2018 Comp Metabolic Jqy791 NA 143 mEq/L 03/25/2018 Comp Metabolic Wtl807 K 4.6 mEq/L 03/25/2018 Comp Metabolic Etx511 CL 108 mEq/L 03/25/2018 Comp Metabolic Jax465 CO2 26.0 mEq/L 03/25/2018 Comp Metabolic Stv369 AN ION GAP 14 03/25/2018 Comp Metabolic Msf433 GL UCOSE 87 mg/dL 03/25/2018 Comp Metabolic Jbm828 Cr eat 1.2 mg/dL 03/25/2018 Comp Metabolic Mqr137 eG FR 48 ml/min/1.73m2 03/25 Comp Metabolic Aqf739 BUN 18 mg/dL 03/25/2018 Comp Metabolic Eiy199 B/ C Ratio 15.5 Ratio 03/25/2018 Comp Metabolic Mcz445 CA LCIUM 9.1 mg/dL 03/25/2018 Comp Metabolic Xki610 AL K PHOS 58 U/L 03/25/2018 Comp Metabolic Ugl204 T(SGOT) 21 U/L 03/25/2018 Comp Metabolic Jio672 AL T(SGPT) 13 U/L 03/25/2018 Comp Metabolic Iru698 BI LI T 0.7 mg/dL 03/25/2018 Comp Metabolic Yco071 AL BUMIN 3.2 g/dL 03/25/2018 Comp Metabolic Zld206 TP RO 5.5 g/dL 03/25/2018 Comp Metabolic Nrp899 GL OB 2.3 g/dL 03/25/2018 Comp Metabolic Qoi463 A/ G Ratio 1.4 Ratio 03/25/2018 Comp Metabolic Yzv093 Os mo 286 mOsmo 03/25/2018 Pt Zpr3258 PT 29.0 seconds 03/22/2018 Pt Nht9499 INR 2.7 03/22/2018 Pt Mqo3839 Low Intensity - 1.5-2.0 03/22/2018 Pt Kwz9996 Mod intensity - 2.0-3.0 03/22/2018 Pt Bxv0981 Hi intensity - 3.0-4.0 03/22/2018 Pt Ovr2005 PT 27.1 seconds 02/25/2018 Pt Hzn4981 INR 2.5 02/25/2018 Pt Ucn1508 Low Intensity - 1.5-2.0 02/25/2018 Pt Gic8582 Mod intensity - 2.0-3.0 02/25/2018 Pt Tnc5130 Hi intensity - 3.0-4.0 02/25/2018 Pt Isw4223 PT 26.1 seconds 01/26/2018 Pt Bwo8788 INR 2.4 01/26/2018 Pt Zud8335 Low Intensity - 1.5-2.0 01/26/2018 Pt Hwr7783 Mod intensity - 2.0-3.0 01/26/2018 Pt Cgj3514 Hi intensity - 3.0-4.0 01/26/2018 Pt Wlz5118 PT 22.8 seconds 12/24/2017 Pt Nux5795 INR 2.0 12/24/2017 Pt Vlu8520 Low Intensity - 1.5-2.0 12/24/2017 Pt Uvn6651 Mod intensity - 2.0-3.0 12/24/2017 Pt Qyk8348 Hi intensity - 3.0-4.0 12/24/2017 Pt Ctv8486 PT 29.4 seconds 11/18/2017 Pt Rfm4312 INR 2.8 11/18/2017 Pt Tst5076 Low Intensity - 1.5-2.0 11/18/2017 Pt Yxu8502 Mod intensity - 2.0-3.0 11/18/2017 Pt Efq7696 Hi intensity - 3.0-4.0 11/18/2017 Pt Rbz6695 PT 26.6 seconds 09/13/2017 Pt Kal8923 INR 2.4 09/13/2017 Pt Zfx9500 Low Intensity - 1.5-2.0 09/13/2017 Pt Edj2268 Mod intensity - 2.0-3.0 09/13/2017 Pt Xfw8839 Hi intensity - 3.0-4.0 09/13/2017 Pt Pes6640 PT 28.2 seconds 08/10/2017 Pt Amc5252 INR 2.6 08/10/2017 Pt Hrn1317 Low Intensity - 1.5-2.0 08/10/2017 Pt Vov5328 Mod intensity - 2.0-3.0 08/10/2017 Pt Vpi8159 Hi intensity - 3.0-4.0 08/10/2017 Pt Adk4085 PT 33.9 seconds 07/27/2017 Pt Oze3296 INR 3.3 07/27/2017 Pt Cnz4559 Low Intensity - 1.5-2.0 07/27/2017 Pt Wdn0541 Mod intensity - 2.0-3.0 07/27/2017 Pt Dua2385 Hi intensity - 3.0-4.0 07/27/2017 Pt Qyp2880 PT 29.1 seconds 06/29/2017 Pt Gxl9755 INR 2.7 06/29/2017 Pt Tmx3600 Low Intensity - 1.5-2.0 06/29/2017 Pt Qmx7869 Mod intensity - 2.0-3.0 06/29/2017 Pt Cmx3803 Hi intensity - 3.0-4.0 06/29/2017 Pt Fhf1750 PT 30.3 seconds 06/11/2017 Pt Osw8056 INR 2.9 06/11/2017 Pt Wqi5625 Low Intensity - 1.5-2.0 06/11/2017 Pt Cbt5686 Mod intensity - 2.0-3.0 06/11/2017 Pt Ytv3847 Hi intensity - 3.0-4.0 06/11/2017 Pt Yqg9133 PT 39.1 seconds 06/07/2017 Pt Isr6020 INR 3.9 06/07/2017 Pt Tkc5129 Low Intensity - 1.5-2.0 06/07/2017 Pt Upp3996 Mod intensity - 2.0-3.0 06/07/2017 Pt Diy2391 Hi intensity - 3.0-4.0 06/07/2017 Pt Scb0389 PT 34.2 seconds 05/26/2017 Pt Nae2786 INR 3.3 05/26/2017 Pt Hkt8831 Low Intensity - 1.5-2.0 05/26/2017 Pt Tbz2007 Mod intensity - 2.0-3.0 05/26/2017 Pt Gnr5075 Hi intensity - 3.0-4.0 05/26/2017 Comp Metabolic Jnr822 NA 138 mEq/L 04/23/2017 Comp Metabolic Rug004 K 4.2 mEq/L 04/23/2017 Comp Metabolic Szz354 CL 101 mEq/L 04/23/2017 Comp Metabolic Gam662 CO2 28.0 mEq/L 04/23/2017 Comp Metabolic Vmd168 AN ION GAP 13 04/23/2017 Comp Metabolic Mrq442 GL UCOSE 89 mg/dL 04/23/2017 Comp Metabolic Sal679 Cr eat 1.1 mg/dL 04/23/2017 Comp Metabolic Yax631 eG FR 51 ml/min/1.73m2 04/23 Comp Metabolic Xfz407 BUN 26 mg/dL 04/23/2017 Comp Metabolic Bdp477 B/ C Ratio 23.9 Ratio 04/23/2017 Comp Metabolic Zfl799 CA LCIUM 9.4 mg/dL 04/23/2017 Comp Metabolic Xnh348 AL K PHOS 95 U/L 04/23/2017 Comp Metabolic Mis463 T(SGOT) 18 U/L 04/23/2017 Comp Metabolic Lfb306 AL T(SGPT) 17 U/L 04/23/2017 Comp Metabolic Fvw101 BI LI T 0.7 mg/dL 04/23/2017 Comp Metabolic Jjh392 AL BUMIN 3.2 g/dL 04/23/2017 Comp Metabolic Cmt531 TP RO 5.6 g/dL 04/23/2017 Comp Metabolic Kyh368 GL OB 2.4 g/dL 04/23/2017 Comp Metabolic Onk829 A/ G Ratio 1.3 Ratio 04/23/2017 Comp Metabolic Akd997 Os mo 280 mOsmo 04/23/2017 Pt Tqn1522 PT 28.6 seconds 04/23/2017 Pt Wnz6925 INR 2.7 04/23/2017 Pt Qqh6153 Low Intensity - 1.5-2.0 04/23/2017 Pt Eby8313 Mod intensity - 2.0-3.0 04/23/2017 Pt Ycg9983 Hi intensity - 3.0-4.0 04/23/2017 Pt Ipy4036 PT 24.4 seconds 03/16/2017 Pt Rah4603 INR 2.2 03/16/2017 Pt Fgd2507 Low Intensity - 1.5-2.0 03/16/2017 Pt Dvp0344 Mod intensity - 2.0-3.0 03/16/2017 Pt Mvl9303 Hi intensity - 3.0-4.0 03/16/2017 Pt Gdp6470 PT 28.2 seconds 02/24/2017 Pt Kwb7908 INR 2.6 02/24/2017 Pt Bvo6211 Low Intensity - 1.5-2.0 02/24/2017 Pt Tdv8723 Mod intensity - 2.0-3.0 02/24/2017 Pt Pke9963 Hi intensity - 3.0-4.0 02/24/2017 Pt Foq2753 PT 26.8 seconds 02/08/2017 Pt Lby3314 INR 2.5 02/08/2017 Pt Yow2861 Low Intensity - 1.5-2.0 02/08/2017 Pt Vcc9218 Mod intensity - 2.0-3.0 02/08/2017 Pt Ytj5190 Hi intensity - 3.0-4.0 02/08/2017 Lipid Ord30 CHOL 150 mg/dL 01/25/2017 Lipid Ord30 HDL 55.0 mg/dl 01/25/2017 Lipid Ord30 TRIG 66 mg/dL 01/25/2017 Lipid Ord30 LDL 82 mg/dL 01/25/2017 Lipid Ord30 C/HDL 2.7 Ratio 01/25/2017 Pt Jww4265 PT 29.9 seconds 01/25/2017 Pt Vbn3345 INR 2.8 01/25/2017 Pt Yog0767 Low Intensity - 1.5-2.0 01/25/2017 Pt Ipu7730 Mod intensity - 2.0-3.0 01/25/2017 Pt Mog2501 Hi intensity - 3.0-4.0 01/25/2017 Comp Metabolic Qry416 NA 143 mEq/L 01/25/2017 Comp Metabolic Zzu577 K 3.9 mEq/L 01/25/2017 Comp Metabolic Qhn211 CL 108 mEq/L 01/25/2017 Comp Metabolic Cgy283 CO2 23.0 mEq/L 01/25/2017 Comp Metabolic Fpj018 AN ION GAP 16 01/25/2017 Comp Metabolic Fla988 GL UCOSE 80 mg/dL 01/25/2017 Comp Metabolic Ucs027 Cr eat 1.0 mg/dL 01/25/2017 Comp Metabolic Vmu991 eG FR 57 ml/min/1.73m2 01/25 Comp Metabolic Men762 BUN 25 mg/dL 01/25/2017 Comp Metabolic Lio745 B/ C Ratio 25.0 Ratio 01/25/2017 Comp Metabolic Pla925 CA LCIUM 8.5 mg/dL 01/25/2017 Comp Metabolic Nel687 AL K PHOS 81 U/L 01/25/2017 Comp Metabolic Lut569 T(SGOT) 19 U/L 01/25/2017 Comp Metabolic Axn819 AL T(SGPT) 23 U/L 01/25/2017 Comp Metabolic Xhm434 BI LI T 0.5 mg/dL 01/25/2017 Comp Metabolic Zby331 AL BUMIN 2.9 g/dL 01/25/2017 Comp Metabolic Pcn516 TP RO 5.1 g/dL 01/25/2017 Comp Metabolic Sow529 GL OB 2.2 g/dL 01/25/2017 Comp Metabolic Qox984 A/ G Ratio 1.3 Ratio 01/25/2017 Comp Metabolic Pnj478 Os mo 288 mOsmo 01/25/2017 Cbc With [...] 30.7 pg 01/25/2017 Cbc With Differential Ord2 [place]% 8.2 % 01/25/2017 Cbc With Differential Ord2 [...] 3.10 K/ul 01/25/2017 Cbc With Differential Ord2 [place] ABS# 0.8 K/ul 01/25/2017 Cbc With Differential Ord2 Eos ABS# 0.4 K/ul 01/25/2017 Cbc With Differential Ord2 Baso ABS# 0.1 K/ul 01/25/2017 Free T4 Qvd369 FREE T4 2.09 ng/dL 01/25/2017 Tsh Ord6 hTSH II 0.46 uIU/mL 01/25/2017 Pt Ogb1615 PT 26.1 seconds 11/26/2016 Pt Dgb5559 INR 2.6 11/26/2016 Pt Bpr8213 Low Intensity - 1.5-2.0 11/26/2016 Pt Iwy2238 Mod intensity - 2.0-3.0 11/26/2016 Pt Xpp7184 Hi intensity - 3.0-4.0 11/26/2016 Pt Xlm9714 PT 26.2 seconds 10/29/2016 Pt Xmm6660 INR 2.6 10/29/2016 Pt Xtv9201 Low Intensity - 1.5-2.0 10/29/2016 Pt Wys7406 Mod intensity - 2.0-3.0 10/29/2016 Pt Axk9017 Hi intensity - 3.0-4.0 10/29/2016 Pt Iev9345 PT 20.8 seconds 10/13/2016 Pt Tfw4903 INR 1.9 10/13/2016 Pt Pdj6548 Low Intensity - 1.5-2.0 10/13/2016 Pt Fch4781 Mod intensity - 2.0-3.0 10/13/2016 Pt Spz4900 Hi intensity - 3.0-4.0 10/13/2016 Pt Sbs0169 PT 26.5 seconds 10/01/2016 Pt Cvd3187 INR 2.6 10/01/2016 Pt Swv5408 Low Intensity - 1.5-2.0 10/01/2016 Pt Afo9091 Mod intensity - 2.0-3.0 10/01/2016 Pt Rcn9068 Hi intensity - 3.0-4.0 10/01/2016 Pt Kaa5190 PT 24.6 seconds 09/14/2016 Pt Yzd6419 INR 2.4 09/14/2016 Pt Fqz5745 Low Intensity - 1.5-2.0 09/14/2016 Pt Noy9862 Mod intensity - 2.0-3.0 09/14/2016 Pt Vrc3178 Hi intensity - 3.0-4.0 09/14/2016 Pt Dsf5468 PT 18.0 seconds 09/07/2016 Pt Buo0592 INR 1.6 09/07/2016 Pt Yyz0543 Low Intensity - 1.5-2.0 09/07/2016 Pt Rev8465 Mod intensity - 2.0-3.0 09/07/2016 Pt Xoq4895 Hi intensity - 3.0-4.0 09/07/2016 Pt Vjd1536 PT 23.7 seconds 08/12/2016 Pt Kpv8041 INR 2.2 08/12/2016 Pt Dts5116 Low Intensity - 1.5-2.0 08/12/2016 Pt Sdp4749 Mod intensity - 2.0-3.0 08/12/2016 Pt Ctz0691 Hi intensity - 3.0-4.0 08/12/2016 Pt Sug5363 PT 21.6 seconds 07/27/2016 Pt Oln2299 INR 2.0 07/27/2016 Pt Zil1586 Low Intensity - 1.5-2.0 07/27/2016 Pt Ryd1485 Mod intensity - 2.0-3.0 07/27/2016 Pt Zwz7866 Hi intensity - 3.0-4.0 07/27/2016 Pt Ghf3284 PT 26.0 seconds 06/15/2016 Pt Yib0431 INR 2.5 06/15/2016 Pt Ihy2863 Low Intensity - 1.5-2.0 06/15/2016 Pt Hsu5176 Mod intensity - 2.0-3.0 06/15/2016 Pt Mso2718 Hi intensity - 3.0-4.0 06/15/2016 Pt Cmo0810 PT 18.8 seconds 06/01/2016 Pt Ngx9632 INR 1.7 06/01/2016 Pt Rwv6712 Low Intensity - 1.5-2.0 06/01/2016 Pt Yew3587 Mod intensity - 2.0-3.0 06/01/2016 Pt Iyu9658 Hi intensity - 3.0-4.0 06/01/2016 Pt Utz0574 PT 20.8 seconds 05/12/2016 Pt Qjp2307 INR 1.9 05/12/2016 Pt Xhz7577 Low Intensity - 1.5-2.0 05/12/2016 Pt Goc8605 Mod intensity - 2.0-3.0 05/12/2016 Pt Tce1542 Hi intensity - 3.0-4.0 05/12/2016 Pt Msk3019 PT 24.5 seconds 04/10/2016 Pt Gxv8892 INR 2.4 04/10/2016 Pt Vwm7049 Low Intensity - 1.5-2.0 04/10/2016 Pt Gnt8604 Mod intensity - 2.0-3.0 04/10/2016 Pt Adr9051 Hi intensity - 3.0-4.0 04/10/2016 Pt Jcu8606 PT 26.4 seconds 03/10/2016 Pt Nfm1597 INR 2.6 03/10/2016 Pt Ugk6422 Low Intensity - 1.5-2.0 03/10/2016 Pt Kps9554 Mod intensity - 2.0-3.0 03/10/2016 Pt Szs9519 Hi intensity - 3.0-4.0 03/10/2016 Pt Snx3050 PT 24.9 seconds 03/06/2016 Pt Xjv1022 INR 2.4 03/06/2016 Pt Cox0562 Low Intensity - 1.5-2.0 03/06/2016 Pt Lfa4020 Mod intensity - 2.0-3.0 03/06/2016 Pt Rfx6733 Hi intensity - 3.0-4.0 03/06/2016 Pt Wrp7775 PT 21.9 seconds 02/25/2016 Pt Lic0068 INR 2.0 02/25/2016 Pt Yet7611 Low Intensity - 1.5-2.0 02/25/2016 Pt Dek6729 Mod intensity - 2.0-3.0 02/25/2016 Pt Evc6064 Hi intensity - 3.0-4.0 02/25/2016 Pt Zls2405 PT 21.8 seconds 02/21/2016 Pt Pth7661 INR 2.0 02/21/2016 Pt Zwh2554 Low Intensity - 1.5-2.0 02/21/2016 Pt Ivu7892 Mod intensity - 2.0-3.0 02/21/2016 Pt Ojd9679 Hi intensity - 3.0-4.0 02/21/2016 Culture Urine [id number] URI NE CULTURE SEE NOTES 02/20/2016 Culture Urine [id number] Con tinued Results 02/20/2016 Urine Culture Ucult [...] 29.2 pg 02/14/2016 Cbc With Differential Ord2 [place]% 9.3 % 02/14/2016 Cbc With Differential Ord2 [...] 2.55 K/ul 02/14/2016 Cbc With Differential Ord2 [place] ABS# 0.8 K/ul 02/14/2016 Cbc With Differential Ord2 Eos ABS# 0.4 K/ul 02/14/2016 Cbc With Differential Ord2 Baso ABS# 0.1 K/ul 02/14/2016 Tsh Ord6 hTSH II 0.80 uIU/mL 02/14/2016 Pt Voj8486 PT 27.1 seconds 02/14/2016 Pt Wug4804 INR 2.7 02/14/2016 Pt Yif5715 Low Intensity - 1.5-2.0 02/14/2016 Pt Zzf6792 Mod intensity - 2.0-3.0 02/14/2016 Pt Sih8066 Hi intensity - 3.0-4.0 02/14/2016 Free T4 Wsc707 FREE T4 1.87 ng/dL 02/14/2016 Comp Metabolic Aop041 NA 139 mEq/L 02/14/2016 Comp Metabolic Rzm193 K 3.8 mEq/L 02/14/2016 Comp Metabolic Bdc738 CL 103 mEq/L 02/14/2016 Comp Metabolic Njf493 CO2 27.0 mEq/L 02/14/2016 Comp Metabolic Akz536 AN ION GAP 13 02/14/2016 Comp Metabolic Dke596 GL UCOSE 91 mg/dL 02/14/2016 Comp Metabolic Yzc339 Cr eat 1.0 mg/dL 02/14/2016 Comp Metabolic Kjv642 eG FR 58 ml/min/1.73m2 02/13 Comp Metabolic Shy733 BUN 16 mg/dL 02/14/2016 Comp Metabolic Gyc095 B/ C Ratio 16.2 Ratio 02/14/2016 Comp Metabolic Idi621 CA LCIUM 9.0 mg/dL 02/14/2016 Comp Metabolic Sun867 AL K PHOS 88 U/L 02/14/2016 Comp Metabolic Dyg256 T(SGOT) 17 U/L 02/14/2016 Comp Metabolic Rgc626 AL T(SGPT) 12 U/L 02/14/2016 Comp Metabolic Nqt062 BI LI T 0.6 mg/dL 02/14/2016 Comp Metabolic Rrz630 AL BUMIN 3.2 g/dL 02/14/2016 Comp Metabolic Ddp389 TP RO 5.8 g/dL 02/14/2016 Comp Metabolic Aoc271 GL OB 2.6 g/dL 02/14/2016 Comp Metabolic Wop585 A/ G Ratio 1.3 Ratio 02/14/2016 Comp Metabolic Hdz011 Os mo 278 mOsmo 02/14/2016 Pt Kab4813 PT 34.6 seconds 02/06/2016 Pt Wqg4929 INR 3.7 02/06/2016 Pt Pgl0740 Low Intensity - 1.5-2.0 02/06/2016 Pt Lts1264 Mod intensity - 2.0-3.0 02/06/2016 Pt Bkh0764 Hi intensity - 3.0-4.0 02/06/2016 Pt Vzv8819 PT 33.3 seconds 01/23/2016 Pt Ubn8537 INR 3.5 01/23/2016 Pt Nei9760 Low Intensity - 1.5-2.0 01/23/2016 Pt Kpp9108 Mod intensity - 2.0-3.0 01/23/2016 Pt Scy9034 Hi intensity - 3.0-4.0 01/23/2016 Pt Cfv0280 PT 30.5 seconds 12/31/2015 Pt Rgd3059 INR 3.2 12/31/2015 Pt Ojm7859 Low Intensity - 1.5-2.0 12/31/2015 Pt Yxo5144 Mod intensity - 2.0-3.0 12/31/2015 Pt Rdn7463 Hi intensity - 3.0-4.0 12/31/2015 Pt Vqa4042 PT 35.6 seconds 12/25/2015 Pt Ywh4225 INR 3.9 12/25/2015 Pt Seo3497 Low Intensity - 1.5-2.0 12/25/2015 Pt Kzb0773 Mod intensity - 2.0-3.0 12/25/2015 Pt Mes7983 Hi intensity - 3.0-4.0 12/25/2015 Pt Uma3680 PT 30.8 seconds 11/21/2015 Pt Rqd1454 INR 3.2 11/21/2015 Pt Ujv9560 Low Intensity - 1.5-2.0 11/21/2015 Pt Iir4577 Mod intensity - 2.0-3.0 11/21/2015 Pt Hiv6455 Hi intensity - 3.0-4.0 11/21/2015 Uric Acid [...] 30.0 pg 11/20/2015 Cbc With Differential Ord2 [place]% 8.1 % 11/20/2015 Cbc With Differential Ord2 [...] 2.51 K/ul 11/20/2015 Cbc With Differential Ord2 [place] ABS# 0.9 K/ul 11/20/2015 Cbc With Differential Ord2 Eos ABS# 0.3 K/ul 11/20/2015 Cbc With Differential Ord2 Baso ABS# 0.0 K/ul 11/20/2015 Comp Metabolic Vve680 NA 137 mEq/L 10/22/2015 Comp Metabolic Cyo455 K 3.9 mEq/L 10/22/2015 Comp Metabolic Yeg977 CL 100 mEq/L 10/22/2015 Comp Metabolic Baz525 CO2 31.0 mEq/L 10/22/2015 Comp Metabolic Kpc979 AN ION GAP 10 10/22/2015 Comp Metabolic Fqu285 GL UCOSE 94 mg/dL 10/22/2015 Comp Metabolic Uol116 Cr eat 1.0 mg/dL 10/22/2015 Comp Metabolic Zgt122 eG FR 55 ml/min/1.73m2 10/21 Comp Metabolic Qai047 BUN 19 mg/dL 10/22/2015 Comp Metabolic Nzz434 B/ C Ratio 18.3 Ratio 10/22/2015 Comp Metabolic Soz372 CA LCIUM 8.8 mg/dL 10/22/2015 Comp Metabolic Qtd714 AL K PHOS 83 U/L 10/22/2015 Comp Metabolic Jps340 T(SGOT) 15 U/L 10/22/2015 Comp Metabolic Eha581 AL T(SGPT) 13 U/L 10/22/2015 Comp Metabolic Qss614 BI LI T 0.9 mg/dL 10/22/2015 Comp Metabolic Ljf282 AL BUMIN 2.8 g/dL 10/22/2015 Comp Metabolic Mgl850 TP RO 5.4 g/dL 10/22/2015 Comp Metabolic Zrx727 GL OB 2.6 g/dL 10/22/2015 Comp Metabolic Auc152 A/ G Ratio 1.1 Ratio 10/22/2015 Comp Metabolic Kaj959 Os mo 276 mOsmo 10/22/2015 Bili D Ord93 BILI D 0.1 mg/dL 10/22/2015 Bili D Ord93 BILI I 0.8 mg/dL 10/22/2015 Pt Bzb8664 PT 22.8 seconds 10/22/2015 Pt Dtj4183 INR 2.1 10/22/2015 Pt Eaa6317 Low Intensity - 1.5-2.0 10/22/2015 Pt Tfa0023 Mod intensity - 2.0-3.0 10/22/2015 Pt Rml5469 Hi intensity - 3.0-4.0 10/22/2015 Pt Loa1507 PT 28.0 seconds 09/16/2015 Pt Ews8350 INR 2.7 09/16/2015 Pt Wza1743 Low Intensity - 1.5-2.0 09/16/2015 Pt Bzb3688 Mod intensity - 2.0-3.0 09/16/2015 Pt Tnn0832 Hi intensity - 3.0-4.0 09/16/2015 Tsh Ord6 hTSH II 1.40 uIU/mL 09/16/2015 Free T4 Ndv146 FREE T4 1.73 ng/dL 09/16/2015 Lipid Ord30 CHOL 169 mg/dL 09/16/2015 Lipid Ord30 HDL 66.0 mg/dl 09/16/2015 Lipid Ord30 TRIG 78 mg/dL 09/16/2015 Lipid Ord30 LDL 87 mg/dL 09/16/2015 Lipid Ord30 C/HDL 2.6 Ratio 09/16/2015 Pt Ukx6895 PT 26.6 seconds 08/21/2015 Pt Mks3640 INR 2.6 08/21/2015 Pt Uxa4802 Low Intensity - 1.5-2.0 08/21/2015 Pt Nfu2527 Mod intensity - 2.0-3.0 08/21/2015 Pt Boz7011 Hi intensity - 3.0-4.0 08/21/2015 Comp Metabolic Env557 NA 141 mEq/L 08/08/2015 Comp Metabolic Gln598 K 3.3 mEq/L 08/08/2015 Comp Metabolic Eyo245 CL 102 mEq/L 08/08/2015 Comp Metabolic Wvz818 CO2 31.0 mEq/L 08/08/2015 Comp Metabolic Fef240 AN ION GAP 11 08/08/2015 Comp Metabolic Lry114 GL UCOSE 83 mg/dL 08/08/2015 Comp Metabolic Opg097 Cr eat 1.0 mg/dL 08/08/2015 Comp Metabolic Bfy961 eG FR 55 ml/min/1.73m2 08/08 Comp Metabolic Fty047 BUN 19 mg/dL 08/08/2015 Comp Metabolic Ajz468 B/ C Ratio 18.3 Ratio 08/08/2015 Comp Metabolic Qmr125 CA LCIUM 8.9 mg/dL 08/08/2015 Comp Metabolic Oab327 AL K PHOS 84 U/L 08/08/2015 Comp Metabolic Lmv098 T(SGOT) 20 U/L 08/08/2015 Comp Metabolic Wux009 AL T(SGPT) 18 U/L 08/08/2015 Comp Metabolic Fjc081 BI LI T 0.6 mg/dL 08/08/2015 Comp Metabolic Fqw925 AL BUMIN 3.3 g/dL 08/08/2015 Comp Metabolic Hyb781 TP RO 5.9 g/dL 08/08/2015 Comp Metabolic Jee428 GL OB 2.6 g/dL 08/08/2015 Comp Metabolic Idl873 A/ G Ratio 1.3 Ratio 08/08/2015 Comp Metabolic Viv220 Os mo 283 mOsmo 08/08/2015 Cbc With [...] 30.0 pg 08/08/2015 Cbc With Differential Ord2 [place]% 8.2 % 08/08/2015 Cbc With Differential Ord2 [...] 2.90 K/ul 08/08/2015 Cbc With Differential Ord2 [place] ABS# 0.9 K/ul 08/08/2015 Cbc With Differential [...] Ord93 BILI I 0.5 mg/dL 08/08/2015 Pt Nrl7825 PT 31.8 seconds 08/05/2015 Pt Jkb5869 INR 3.2 08/05/2015 Pt Nuh1718 Low Intensity - 1.5-2.0 08/05/2015 Pt Lse4579 Mod intensity - 2.0-3.0 08/05/2015 Pt Xbs2723 Hi intensity - 3.0-4.0 08/05/2015 Pt Sty3984 PT 27.4 seconds 06/27/2015 Pt Ilb9053 INR 2.6 06/27/2015 Pt Mru5008 Low Intensity - 1.5-2.0 06/27/2015 Pt Sgh1770 Mod intensity - 2.0-3.0 06/27/2015 Pt Xqf4422 Hi intensity - 3.0-4.0 06/27/2015 Tsh Ord6 [...] Ord2 RDW 15.1 % 05/31/2015 Free T4 Rtl110 FREE T4 1.89 ng/dL 05/31/2015 Comp Metabolic Iyc676 NA 140 mEq/L 05/31/2015 Comp Metabolic Bhd469 K 3.3 mEq/L 05/31/2015 Comp Metabolic Azx333 CL 99 mEq/L 05/31/2015 Comp Metabolic Kdv289 CO2 30.0 mEq/L 05/31/2015 Comp Metabolic Ydn839 AN ION GAP 14 05/31/2015 Comp Metabolic Nwk333 GL UCOSE 70 mg/dL 05/31/2015 Comp Metabolic Evo612 Cr eat 1.0 mg/dL 05/31/2015 Comp Metabolic Kww560 eG FR 55 ml/min/1.73m2 05/31 Comp Metabolic Mqg792 BUN 23 mg/dL 05/31/2015 Comp Metabolic Fno949 B/ C Ratio 22.1 Ratio 05/31/2015 Comp Metabolic Vzs349 CA LCIUM 8.9 mg/dL 05/31/2015 Comp Metabolic Llq494 AL K PHOS 86 U/L 05/31/2015 Comp Metabolic Wrm481 T(SGOT) 28 U/L 05/31/2015 Comp Metabolic Yuw183 AL T(SGPT) 30 U/L 05/31/2015 Comp Metabolic Lad642 BI LI T 0.4 mg/dL 05/31/2015 Comp Metabolic Mww162 AL BUMIN 3.3 g/dL 05/31/2015 Comp Metabolic Gbt015 TP RO 6.0 g/dL 05/31/2015 Comp Metabolic Jzd860 GL OB 2.7 g/dL 05/31/2015 Comp Metabolic Qjs943 A/ G Ratio 1.2 Ratio 05/31/2015 Comp Metabolic Qlm898 Os mo 282 mOsmo 05/31/2015 Pt Spc6624 PT 23.3 seconds 04/15/2015 Pt Qmb0294 INR 2.2 04/15/2015 Pt Rsd2274 Low Intensity - 1.5-2.0 04/15/2015 Pt Hwb9883 Mod intensity - 2.0-3.0 04/15/2015 Pt Inw3577 Hi intensity - 3.0-4.0 04/15/2015 Pt Jlg5608 PT 19.5 seconds 04/04/2015 Pt Rhg6476 INR 1.7 04/04/2015 Pt Lmf3892 Low Intensity - 1.5-2.0 04/04/2015 Pt Xti0857 Mod intensity - 2.0-3.0 04/04/2015 Pt Drb1712 Hi intensity - 3.0-4.0 04/04/2015 Pt Qaj8248 PT 39.8 seconds 04/01/2015 Pt Dii2760 INR 4.3 04/01/2015 Pt Mpo8492 Low Intensity - 1.5-2.0 04/01/2015 Pt Rsh4326 Mod intensity - 2.0-3.0 04/01/2015 Pt Mhn4161 Hi intensity - 3.0-4.0 04/01/2015 Metabolic Ord15 [...] Metabolic Ord15 CALCIUM 8.7 mg/dL 02/28/2015 Pt Otj7578 PT 31.4 seconds 02/28/2015 Pt Mqm3417 INR 3.2 02/28/2015 Pt Dmc4907 Low Intensity - 1.5-2.0 02/28/2015 Pt Kxq3240 Mod intensity - 2.0-3.0 02/28/2015 Pt Nmi4792 Hi intensity - 3.0-4.0 02/28/2015 Pt Pbm5399 PT 23.2 seconds 01/18/2015 Pt Etr7832 INR 2.1 01/18/2015 Pt Mnx5606 Low Intensity - 1.5-2.0 01/18/2015 Pt Ebv6970 Mod intensity - 2.0-3.0 01/18/2015 Pt Yct7425 Hi intensity - 3.0-4.0 01/18/2015 Pt Ake6614 PT 18.2 seconds 01/10/2015 Pt Rjv3156 INR 1.6 01/10/2015 Pt Pwr8936 Low Intensity - 1.5-2.0 01/10/2015 Pt Wjr5849 Mod intensity - 2.0-3.0 01/10/2015 Pt Two3767 Hi intensity - 3.0-4.0 01/10/2015 Review of [...] clear 08/17/2017 None Full Exam - General 1995 Ears/Nose/Throat oral cavity/pharynx/larynx Overall: no masses 08/17/2017 [...] clear 10/13/2016 None Full Exam - General 1995 Ears/Nose/Throat lips/teeth/gingiva Overall: benign lips 10/13/2016 None [...] face 11/20/2014 None Full Exam - General 1995 Integument inspection of skin Location: neck 11/20/2014 None Procedures Procedure Codes Date ADMIN INFLUENZA VIRU S VAC CPT-4: G0008 03/24/2018 ADMIN PNEUMOCOCCAL V ACCINE SNOMED CT: 67182129 CPT-4: G0009 03/24/2018 FLU VACC PRSV FREE I NC ANTIG Formatting Model/CDA Sections, Assigned to/Doorthea Tan CPT-4: 17130Gejyvxp 03/24/2018 Pneumococcal Polysac charide Vaccine, 23-Valent, Ad CPT-4: 40661 03/24/2018 TRIAMCINOLONE ACET I [place] NOS CPT-4: J3301 06/15/2017 THER/PROPH/DIAG INJ SC/IM CPT-4: 04294 06/15/2017 ADMIN PNEUMOCOCCAL V ACCINE SNOMED CT: 49977611 CPT-4: G0009 03/16/2017 ADMIN INFLUENZA VIRU S VAC CPT-4: G0008 03/16/2017 FLU VAC NO PRSV 4 VA L 3 YRS+ CPT-4: 65877 03/16/2017 PNEUMOCOCCAL VACC [address]: 73505188 CPT-4: 09246 03/16/2017 URINALYSIS NONAUTO W /O SCOPE CPT-4: 89529 08/26/2016 THER/PROPH/DIAG INJ SC/IM CPT-4: 02238 07/22/2016 TRIAMCINOLONE ACET I [place] NOS CPT-4: J3301 07/22/2016 ROCEPHIN, PER 250 MG CPT-4: J0696 07/22/2016 TRIAMCINOLONE ACET I [place] NOS CPT-4: J3301 02/05/2015 Vital Signs Date Vital 08/16/2018 Blood Pressure 1: 104/66 Code: 8480-6 BMI: 32.3 Code: 96324-2 Heart Rate 1: 94 bpm Height: 5'7" SpO2: 96% Weight: 206 lbs 07/11/2018 Blood Pressure 1: 102/68 Code: 8480-6 BMI: 34.5 Code: 31224-4 Heart Rate 1: 101 bpm Height: 5'7" SpO2: 98% Weight: 220 lbs 03/24/2018 Blood Pressure 1: 130/72 Code: 8480-6 BMI: 33.4 Code: 08761-0 Heart Rate 1: 82 bpm Height: 5'7" SpO2: 93% Weight: 213 lbs 11/18/2017 Blood Pressure 1: 128/70 Code: 8480-6 BMI: 33.6 Code: 58897-4 Heart Rate 1: 98 bpm Height: 5'7" SpO2: 97% Weight: 214 lbs 8 oz 09/30/2017 Blood Pressure 1: 100/50 Code: 8480-6 BMI: 34.0 Code: 87209-0 Heart Rate 1: 66 bpm Height: 5'7" SpO2: 96% Weight: 217 lbs 08/17/2017 Blood Pressure 1: 104/60 Code: 8480-6 BMI: 33.7 Code: 15713-4 Heart Rate 1: 99 bpm Height: 5'7" SpO2: 97% Weight: 215 lbs 06/15/2017 Blood Pressure 1: 120/64 Code: 8480-6 BMI: 33.5 Code: 64704-3 Heart Rate 1: 91 bpm Height: 5'7" SpO2: 94% Weight: 214 lbs 04/01/2017 Blood Pressure 1: 110/68 Code: 8480-6 BMI: 154.4 Code: 54627-7 Heart Rate 1: 66 bpm Height: 2'7" SpO2: 95% Weight: 211 lbs 03/16/2017 Blood Pressure 1: 130/72 Code: 8480-6 BMI: 33.0 Code: 81297-9 Heart Rate 1: 95 bpm Height: 5'7" SpO2: 97% Weight: 211 lbs 02/09/2017 Blood Pressure 1: 120/70 Code: 8480-6 BMI: 32.9 Code: 54159-8 Heart Rate 1: 78 bpm Height: 5'7" SpO2: 96% Weight: 210 lbs 10/13/2016 Blood Pressure 1: 118/76 Code: 8480-6 BMI: 32.6 Code: 75868-5 Heart Rate 1: 97 bpm Height: 5'7" SpO2: 98% Weight: 208 lbs 07/31/2016 Blood Pressure 1: 110/64 Code: 8480-6 BMI: 32.1 Code: 42010-0 Heart Rate 1: 79 bpm Height: 5'7" SpO2: 94% Weight: 205 lbs 07/22/2016 Blood Pressure 1: 108/74 Code: 8480-6 BMI: 32.1 Code: 30855-5 Heart Rate 1: 71 bpm Height: 5'7" SpO2: 97% Temperature: 36.9 (C ) / 98.4 (F) Weight: 205 lbs 05/01/2016 Blood Pressure 1: 120/72 Code: 8480-6 BMI: 32.7 Code: 07542-1 Heart Rate 1: 75 bpm Height: 5'7" SpO2: 94% Weight: 209 lbs 04/06/2016 Blood Pressure 1: 106/62 Code: 8480-6 BMI: 32.7 Code: 85292-5 Heart Rate 1: 83 bpm Height: 5'7" SpO2: 97% Weight: 209 lbs 03/06/2016 Blood Pressure 1: 112/68 Code: 8480-6 BMI: 32.7 Code: 37401-7 Heart Rate 1: 90 bpm Height: 5'7" SpO2: 97% Weight: 209 lbs 03/03/2016 Blood Pressure 1: 120/62 Code: 8480-6 BMI: 32.7 Code: 55657-9 Heart Rate 1: 92 bpm Height: 5'7" SpO2: 98% Weight: 209 lbs 02/07/2016 Blood Pressure 1: 110/64 Code: 8480-6 BMI: 32.7 Code: 81081-8 Heart Rate 1: 87 bpm Height: 5'7" SpO2: 97% Weight: 209 lbs 12/13/2015 Blood Pressure 1: 110/64 Code: 8480-6 BMI: 33.5 Code: 70109-7 Heart Rate 1: 90 bpm Height: 5'7" SpO2: 97% Weight: 214 lbs 12/03/2015 Blood Pressure 1: 132/76 Code: 8480-6 BMI: 33.4 Code: 25881-8 Heart Rate 1: 82 bpm Height: 5'7" SpO2: 99% Weight: 213 lbs 11/20/2015 Blood Pressure 1: 108/68 Code: 8480-6 BMI: 32.4 Code: 03086-0 Heart Rate 1: 77 bpm Height: 5'7" SpO2: 97% Weight: 207 lbs 09/17/2015 Blood Pressure 1: 122/76 Code: 8480-6 BMI: 33.0 Code: 38207-4 Heart Rate 1: 91 bpm Height: 5'7" SpO2: 97% Weight: 211 lbs 05/31/2015 Blood Pressure 1: 128/82 Code: 8480-6 BMI: 33.4 Code: 56751-3 Heart Rate 1: 98 bpm Height: 5'7" SpO2: 99% Weight: 213 lbs 02/05/2015 Blood Pressure 1: 128/80 Code: 8480-6 BMI: 32.6 Code: 67560-5 Heart Rate 1: 86 bpm Height: 5'7" SpO2: 97% Weight: 208 lbs 11/20/2014 Blood Pressure 1: 128/90 Code: 8480-6 BMI: 30.9 Code: 44716-9 Heart Rate 1: 94 bpm Height: 5'7" [...] ongoing 11/20/2015 None Hospital Follow Up _ [facility] er: fall 09/17/2015 None Hospital Follow [...] Findings Denies fever 05/31/2015 None 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 P ATIENT, LEVEL IV Diagnosis: Essential (primary) hypertension[ICD10: I10] Diagnosis: Atrophy of thyroid (acquired)[ICD10: E03.4] Diagnosis: Sebaceous cyst[ICD10: L72.3] Diagnosis: Chronic atrial fibrillation[ICD10: I48.2] Diagnosis: USP (current) use of anticoagulants[ICD10: Z79.01] Valerie Pisano MD, [facility] CPT-4: 11707 08/16/2018 ([id number]) 01658 EST. P ATIENT, LEVEL IV Diagnosis: Atrophy of thyroid (acquired)[ICD10: E03.4] Diagnosis: Essential (primary) hypertension[ICD10: I10] Diagnosis: Other fatigue[ICD10: R53.83] Diagnosis: Localized edema[ICD10: R60.0] Valerie Pisano MD, [facility] CPT-4: 04938 07/11/2018 ([id number]) 51617 EST. P ATIENT, LEVEL IV Diagnosis: Essential (primary) hypertension[ICD10: I10] Diagnosis: Atrophy of thyroid (acquired)[ICD10: E03.4] Diagnosis: Chronic atrial fibrillation[ICD10: I48.2] Valerie Pisano MD, [facility] CPT-4: 15339 03/24/2018 ([id number]) 74734 EST. P ATIENT, LEVEL IV Diagnosis: Essential (primary) hypertension[ICD10: I10] Diagnosis: Atrophy of thyroid (acquired)[ICD10: E03.4] Diagnosis: Chronic atrial fibrillation[ICD10: I48.2] Valerie Pisano MD, [facility] CPT-4: 24603 11/18/2017 [id number] EST. PATIENT, LEVEL IV Diagnosis: Localized edema[ICD10: R60.0] Roxie Pisano MD, [facility] CPT-4: 47257 09/30/2017 ([id number]) 93216 EST. P ATIENT, LEVEL III Diagnosis: Essential (primary) hypertension[ICD10: I10] Valerie Pisano MD, [facility] CPT-4: 83334 08/17/2017 ([id number]) 33775 EST. P ATIENT, LEVEL IV Diagnosis: Essential (primary) hypertension[ICD10: I10] Diagnosis: Atrophy of thyroid (acquired)[ICD10: E03.4] Diagnosis: Chronic atrial fibrillation[ICD10: I48.2] Diagnosis: Cervicalgia[ICD10: M54.2] Diagnosis: Other muscle spasm[ICD10: M62.838] Valerie Pisano MD, [facility] CPT- 4: 52489 06/15/2017 [id number] EST. PATIENT, LEVEL III Diagnosis: Laceration without foreign body of other finger without damage to nail, initial encounter[ICD10: S61.218A] Roxie Pisano MD, [facility] CPT-4: 83857 04/01/2017 ([id number]) [id number] EST. P ATIENT, LEVEL IV Diagnosis: Chronic atrial fibrillation[ICD10: I48.2] Diagnosis: USP (current) use of anticoagulants[ICD10: Z79.01] Diagnosis: Encounter for immunization[ICD10: Z23] Diagnosis: Atrophy of thyroid (acquired)[ICD10: E03.4] Valerie Pisano MD, [facility] CPT-4: 55056 03/16/2017 ([id number]) 33249 EST. 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 P ATIENT, LEVEL IV Diagnosis: Essential (primary) hypertension[ICD10: I10] Diagnosis: Chronic atrial fibrillation[ICD10: I48.2] Diagnosis: Tinea corporis[ICD10: B35.4] Diagnosis: USP (current) use of anticoagulants[ICD10: Z79.01] Diagnosis: Other skin changes[ICD10: R23.8] Valerie Pisano MD, [facility] CPT-4: 97993 10/13/2016 85916 EST. PATIENT, LEVEL III Diagnosis: Other acute sinusitis[ICD10: J01.80] Diagnosis: Other allergic rhinitis[ICD10: J30.89] Roxie Pisano MD, [facility] CPT-4: 88703 07/31/2016 ([id number]) [id number] EST. P ATIENT, LEVEL III Diagnosis: Acute recurrent maxillary sinusitis[ICD10: J01.01] Valerie Pisano MD, [facility] CPT-4: 88604 07/22/2016 [id number] EST. PATIENT, LEVEL IV Diagnosis: Essential (primary) hypertension[ICD10: I10] Diagnosis: Other allergic rhinitis[ICD10: J30.89] Diagnosis: Localized edema[ICD10: R60.0] Roxie Pisano MD, [facility] CPT-4: 25250 05/01/2016 [id number] EST. PATIENT, LEVEL III Diagnosis: Cellulitis of left lower limb[ICD10: L03.116] Diagnosis: Localized edema[ICD10: R60.0] Roxie Pisano MD, [facility] CPT-4: 67607 04/06/2016 ([id number]) Miscellaneou s no charge Diagnosis: Cellulitis of left lower limb[ICD10: L03.116] Diagnosis: Localized edema[ICD10: R60.0] Roxie Pisano MD, [facility] CPT-4: 77491 03/10/2016 ([id number]) Miscellaneou s no charge Diagnosis: Cellulitis of left lower limb[ICD10: L03.116] Roxie Pisano MD, [facility] CPT-4: 17391 03/06/2016 33201 EST. PATIENT, LEVEL IV Diagnosis: Cellulitis of left lower limb[ICD10: L03.116] Diagnosis: Localized edema[ICD10: R60.0] Roxie Pisano MD, [facility] CPT-4: 90285 03/03/2016 ([id number]) 58461 EST. P ATIENT, LEVEL III Diagnosis: Essential (primary) hypertension[ICD10: I10] Diagnosis: USP (current) use of anticoagulants[ICD10: Z79.01] Diagnosis: Chronic atrial fibrillation[ICD10: I48.2] Brielle Pisano MD, [facility] CPT-4: 03330 02/07/2016 ([id number]) 46583 EST. P ATIENT, LEVEL III Diagnosis: Iliotibial band syndrome, right leg[ICD10: M76.31] Diagnosis: Localized edema[ICD10: R60.0] [facility] CPT- 4: 99959 12/13/2015 ([id number]) 91688 EST. P ATIENT, LEVEL III Diagnosis: Localized edema[ICD10: R60.0] Diagnosis: Essential (primary) hypertension[ICD10: I10] Brielle Pisano MD, [facility] CPT-4: 17391 12/03/2015 ([id number]) 19908 EST. P ATIENT, LEVEL IV Diagnosis: USP (current) use of anticoagulants[ICD10: Z79.01] Diagnosis: Other skin changes[ICD10: R23.8] Diagnosis: Localized edema[ICD10: R60.0] Diagnosis: Pain in right foot[ICD10: M79.671] Valerie Pisano MD, [facility] CPT- 4: 76148 11/20/2015 91063 EST. PATIENT, LEVEL IV Diagnosis: Essential (primary) hypertension[ICD10: I10] Diagnosis: USP (current) use of anticoagulants[ICD10: Z79.01] Diagnosis: Muscle spasm of back[ICD10: M62.830] [facility] CPT- 4: 85536 09/17/2015 ([id number]) 54454 EST. P ATIENT, LEVEL IV Diagnosis: Localized edema[ICD10: R60.0] Diagnosis: Other specified hypothyroidism[ICD10: E03.8] Diagnosis: Essential (primary) hypertension[ICD10: I10] [facility] CPT-4: 91745 05/31/2015 ([id number]) 93870 EST. P ATIENT, LEVEL III Diagnosis: ALLERGIC RHINITIS[ICD9: 477.9] Diagnosis: ESSENTIAL HYPERTENSION[ICD9: 401.9] Brielle Pisano MD, [facility] CPT-4: 85472 02/05/2015 ([id number]) OFFICE [facility] - LEVEL 4 Diagnosis: ESSENTIAL HYPERTENSION[ICD9: 401.9] Diagnosis: HYPOTHYROIDISM[ICD9: 244.9] Diagnosis: ACTINIC KERATOSIS[ICD9: 702.0] Valerie Pisano MD, [facility] CPT-4: 59928 11/20/2014 Plan of Care Planned Activity Notes [...] daily. 08/16/2018 Appointment: Val[facility]ano [facility]el[id number] (15 min) Moderate 08/16/2018 Patient Education: Patient Medication Summary Completed 08/16/2018 Patient Education: Hypertension Completed 08/16/2018 Patient Education: Patient Medication Summary Completed 07/29/2018 Appointment: Brielle Cavazos WPtel: [phone] [phone] (15 min) Moderate 07/12/2018 Visit Plan: Hypertension [...] twice daily. 07/11/2018 Appointment: Valerie Pisano WPtel: [address] [place], [place] [phone] (15 min) Moderate 07/11/2018 Patient Education: Patient [...] given today. 03/24/2018 Appointment: Valerie Pisano WPtel: [address] [place], [place] [phone] (15 min) Moderate 03/24/2018 Patient Education: [...] of control. 11/18/2017 Appointment: Valerie Pisano WPtel: [address] [place], [place] [id number] (15 min) Moderate 11/18/2017 Patient Education: Patient Medication Summary Completed 11/18/2017 Referral: [facility] WPtel: 1 [facility]66[facility] Pt notified at appointment Appointment Confirmed 10/01/2017 [...] Unna Boots 09/30/2017 Appointment: Roxie Cazares WPtel: [address] [place], [place] [id number] (30 min) Complex 09/30/2017 Patient Education: Patient Medication Summary Completed 09/30/2017 Care Plan: Referral Order SNOMED-CT : [id number] Pending 09/30/2017 Visit Plan: Hypertension - well [...] time. 08/17/2017 Appointment: Val[facility] Pisano [facility]Ptel[facility] [phone] [facility] [place] (15 min) Moderate 08/17/2017 Patient [...] RX for voltaren to neck muscles. 06/15/2017 Visit Plan: Hypertension - well con [...] im bristol myeres squibb - lot # [id number] expires september 2018 06/15/2017 Appointment: Valerie Pisano WPtel: [phone] [facility] (15 min) Moderate 06/15/2017 Patient Education: Patient Medication Summary Completed 06/15/2017 Care Plan: Referral Order SNOMED-CT : [id number] Pending 06/15/2017 Appointment: Nurse Visit 04/05/2017 Appointment: [...] booster. 04/01/2017 Appointment: Roxie Cazares WPtel: [phone] [facility] (15 min) Moderate 04/01/2017 Patient Education: Patient [...] today 03/16/2017 Appointment: Val[facility]ano [facility]Ptel[facility] [phone] [facility] (15 min) Moderate 03/16/2017 Patient Education: [...] allergy spray. 02/09/2017 Appointment: Valerie Pisano WPtel: [address] [place], [place] [address] (15 min) Moderate 02/09/2017 Patient Education: Patient [...] nystatin 10/13/2016 Appointment: Valerie Pisano WPtel: [phone] [facility]66[facility] (15 min) Moderate 10/13/2016 Patient Education: Patient Medication Summary Completed 10/13/2016 Patient Education: Obesity Completed 10/13/2016 Patient Education: Hypertension Completed 10/13/2016 Care Plan: Urine Culture Pending 08/31/2016 Appointment: Roxie Cazares WPtel: [facility]66[facility] Lab Draw 08/27/2016 Appointment: Nurse Visit 08/26/2016 [...] spray. 07/31/2016 Appointment: Brielle Cavazos WPtel: [facility] [phone] (30 min) Complex 07/31/2016 Patient Education: Patient Medication Summary Completed 07/31/2016 Patient Education: Obesity Completed 07/31/2016 Visit Plan: Sinusitis - Pt has acut e infection - pain in face, maxillary region, Pt informed to use decongestant, RX given to patient, sinus rinses also recommended. Call if symptoms do not show improvement. 07/22/2016 Appointment: Valerie Pisano WPtel: [phone] [facility]6[address] (15 min) Moderate 07/22/2016 Patient Education: Patient [...] edema. 05/01/2016 Appointment: Brielle Cavazos WPtel: [phone] [phone] (30 min) Complex 05/01/2016 Patient Education: Patient [...] 04/06/2016 Appointment: [phone] [facility] (30 min) Complex 04/06/2016 Patient Education: Patient Medication Summary Completed 04/06/2016 Patient Education: Obesity Completed 04/06/2016 Visit Plan: left foot - improved - pt finished with antibiotics - continue to monitor - notify clinic with any concerns. Repeat INR today. 03/10/2016 Appointment: Brielle Cavazos WPtel: [phone] [phone] (30 min) Complex 03/10/2016 Patient Education: Patient Medication Summary Completed 03/10/2016 Visit Plan: Cellulitis - continue w ith oral antibiotics as previously directed, return to clinic as previously directed, call for acute change in symptoms, worsening redness, warmth, discharge. 03/06/2016 Appointment: Brielle Cavazos WPtel: [phone] [phone] (15 min) Moderate 03/06/2016 Patient Education: Patient Medication Summary Completed 03/06/2016 Patient Education: Obesity Completed 03/06/2016 Visit Plan: Cellulitis - continue w ith oral antibiotics as previously directed, return to clinic as previously directed, call for acute change in symptoms, worsening redness, warmth, discharge. 03/03/2016 Appointment: Brielle Cavazos WPtel: [phone] [phone] (15 min) Moderate 03/03/2016 Patient Education: Patient [...] and 3.5. 02/07/2016 Appointment: Brielle Cavazos WPtel: [phone] [phone] (30 min) Complex 02/07/2016 Patient Education: Patient Medication Summary Completed 02/07/2016 Patient Education: Obesity Completed 02/07/2016 Patient Education: Hypertension Completed 02/07/2016 Appointment: Brielle Cavazos WPtel: [facility] (30 min) Complex 02/04/2016 Visit Plan: Iliotibial [...] edema. 12/13/2015 Appointment: Brielle Cavazos WPtel: [facility]4 [address] (15 min) Moderate 12/13/2015 Patient Education: Patient [...] home. 12/03/2015 Appointment: Brielle Cavazos WPtel: [facility]5 [id number] [place] [address] (30 min) Complex 12/03/2015 Patient Education: Patient [...] Hypertension Completed 02/05/2015 Appointment: Valerie Pisano WPtel: [address] [place], [place] [address] (15 min) Moderate 01/29/2015 Visit Plan: Hypertension [...] control. 11/20/2014 Appointment: Valerie Pisano WPtel: [facility] [place] ([place] New Patient 11/20/2014 Patient Education: Patient Medication Summary Completed 11/20/2014 Patient Education: Hypertension Completed 11/20/2014 Patient Education: Patient Medication Summary Completed 10/19/2014 Referral: [facility] WPtel: Referral Appointment Requested Referral: [facility] [place] Referral Appointment Confirmed Instructions Comment . Laceration [...] therapy. RX for voltaren to neck muscles. Check your PT INR on Wednesday or [...] control. prevnar and flu shot today . Sinusitis - Pt has acute infection [...] neck muscles. allergies - kenalog 40mg im Collections squibb - lot # [id number] expires september 2018 Decrease to 2.5mg (1 [...] for INR is between 2.0 and 3.5. TAKE AN EXTRA LASIX AND POTASSIUM AT [...] the office. get blood work one w deering before next appt - fasting labs Decrease [...] does not improve. . left foot - improv ed - [...] in blood pressure readings at home. . Cellulitis - daylin nue with oral [...]
--- OUTSIDE RECORDS SUMMARY | 2019-09-12 11:37 | XMS REPORT | CCD ---
Author Author Clara Pisano Organization [facility] Address [address] [place] [address] Phone Care Team Providers Care Pest Control Chemical Technician Name Role Phone PP Unavailable CCM Unavailable Summary Purpose Interface Exchange Insurance Providers Payer name Policy type / Coverage type Covered democrat ID Effective Begin Date Effective End Date WPS Medicare Part B Medicare Part B [id number] 2018 Unknown [employer] Medicare Part B [id number] Unknown Family history Sister Diagnosis Age At Onset defect Unknown Breast cancer Unknown Daughter Diagnosis Age At Onset Breast cancer Unknown Mother Diagnosis Age At Onset No Family Disease Entered N/A Social History Social History Element Codes Description Effective Dates Marital status Unknown M arried Lane 11/20/2014 Number of children Unknown 6 11/20/2014 Employment Unknown Retir ed 11/20/[address]: 2537172 Quit over 10 years ago 1963 11/20/2014 [...] ICD-9: 401.9 ICD-10: I10 Active 04/30/2016 Unknown 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 TAKE ON AN EMPTY STOMACH 08/04/2018 04/30/2019 Active meclizine 25 mg tablet RxNorm: 165740 1 Tablet(s) PO TID as needed Dizziness 07/22/2018 No Stop Date Active meclizine 25 mg tablet RxNorm: 967757 1 Tablet(s) PO TID as needed Dizziness 07/19/2018 07/21/2018 In active furosemide 40 mg tablet RxNorm: 174344 1 Tablet(s) BID take 1.5 tabs twice a da y x 7 days then 1 pill daily thereafter 07/11/2018 02/05/2019 Active Coumadin 4 mg tablet RxNorm: 908171 1 Tablet(s) PO daily except 1.5 pills on WEDNESDAY AND Wednesday07/11/2018 08/15/2018 Inactive this is an update to her RX - she will let you know when she needs refill warfarin 5 mg tablet RxNorm: 229846 Tablet(s) TAKE ONE TABLET BY MOUTH DAILY EXCEPT / TAKE 4 MG 04/06/2018 08/22/2019 Active diltiazem 60 mg tablet RxNorm: 456580 1/2 Tablet(s) PO QID 03/24/2018 No Stop Date Active levothyroxine 125 mc g tablet RxNorm: 423077 TAKE ONE TABLET BY [facility] DAILY ON WEDNESDAY, WED, AND WEDNESDAY, AND 1/2 TABLET ON , , WED AND WEDNESDAY. TAKE ON AN EMPTY STOMACH 02/02/2018 07/31/2018 Inactive Coumadin 4 mg tablet RxNorm: 509213 TAKE ONE TABLET BY MOUTH DAILY ON AND Wednesday10/14/2017 07/10/2018 Inactive nystatin 100,000 uni t/gram topical cream RxNorm: 166067 1 Application TOP TID 08/17/2017 No Stop Date Active Voltaren 1 % topical gel RxNorm: 713875 2 Gram(s) TOP TID luiz ly to shoulder and neck 08/17/2017 No Stop Date Active triamcinolone aceton sreekanth 0.025 % topical cream RxNorm: 8186459 1 Application TOP BI D 08/17/2017 08/15/2018 In active levothyroxine 125 mc g tablet RxNorm: 821005 1 Tablet(s) UD 1 pill wed/wed/wed, 1/2 pill //wed/wed take ON AN EMPTY STOMACH 08/05/2017 02/01/2018 Inactive Coumadin 4 mg tablet RxNorm: 606771 1 Tablet(s) PO Wed/07/29/2017 10/13/2017 Inactive warfarin 5 mg tablet RxNorm: 180787 TAKE 1 AND 1/2 TABLETS BY MOUTH ON AND WEDNESDAY. TAKE ONLY 1 TABLET BY MOUTH ALL OTHER DAYS OF THE WEEK 07/12/2017 04/05/2018 In active furosemide 40 mg tablet RxNorm: 896208 Tablet(s) BID TAKE ONE TABLET BY MOUTH D AILY 06/15/2017 07/10/2018 Inactive Voltaren 1 % topical gel RxNorm: 473590 2 Gram(s) TOP TID luiz ly to shoulder and neck 06/15/2017 08/16/2017 Inactive Keflex 500 mg capsule RxNorm: 436016 1 Capsule(s) PO TID 04/01/2017 04/07/2017 Inactive furosemide 40 mg tablet RxNorm: 657739 TAKE ONE TABLET BY MOUTH DAILY 03/18/2017 06/14/2017 In active Claritin-D 12 Hour 5 mg-120 mg tablet,extended release RxNorm: 6409248 1 Tablet(s) PO BID 03/16/2017 05/14/2017 Inactive Lipitor 20 mg tablet RxNorm: 921785 1 Tablet(s) PO daily 02/09/2017 03/10/2017 Inactive lisinopril 2.5 mg ta blet RxNorm: 864354 1 Tablet(s) PO daily 02/09/2017 03/10/2017 Inactive Nasonex 50 mcg/actua tion [place] RxNorm: 6551480 1 [place] NASAL BID 02/09/2017 09/06/2017 Inactive levothyroxine 125 mc g tablet RxNorm: 009912 1 Tablet(s) UD 1 pill wed/wed/wed, 1/2 pill //wed/sun take ON AN EMPTY STOMACH 02/09/2017 08/04/2017 Inactive fluorouracil 5 % top ical cream RxNorm: 008678 1 Application TOP BID 02/09/2017 02/18/2017 Inactive potassium chloride E R 20 mEq tablet,extended release RxNorm: 764088 Tablet(s) TAKE ONE TABLET BY MOUTH DAILY 02/08/2017 02/02/2018 Inactive warfarin 5 mg tablet RxNorm: 186389 TAKE 1 AND 1/2 TABLETS BY MOUTH ON AND WEDNESDAY. TAKE ONLY 1 TABLET BY MOUTH ALL OTHER DAYS OF THE WEEK 12/14/2016 05/30/2017 In active potassium chloride E R 20 mEq tablet,extended release RxNorm: 822766 TAKE ONE TABLET BY MOUTH DAILY 10/29/2016 01/26/2017 Inactive warfarin 5 mg tablet RxNorm: 332108 TAKE 1 AND 1/2 TABLETS BY MOUTH ON AND WEDNESDAY. TAKE ONLY 1 TABLET BY MOUTH ALL OTHER DAYS OF THE WEEK 10/27/2016 12/13/2016 In active nystatin 100,000 uni t/gram topical cream RxNorm: 739949 1 Application TOP TID 10/13/2016 08/16/2017 In active nitrofurantoin 50 mg capsule RxNorm: 933344 1 Capsule(s) PO BID 09/04/2016 09/03/2016 Inactive nitrofurantoin macro crystal 50 mg capsule RxNorm: 466617 1 Capsule(s) PO BID 09/04/2016 09/10/2016 In active Cipro 500 mg tablet RxNorm: 635675 1 Tablet(s) PO BID 08/26/2016 10/12/2016 Inactive Zyrtec 10 mg tablet RxNorm: 6402426 1 Tablet(s) PO daily 07/31/2016 08/29/2016 Inactive prednisone 20 mg tablet RxNorm: 925424 2 Tablet(s) PO daily 07/31/2016 08/02/2016 Inactive Kenalog 40 mg/mL zohra pension for injection RxNorm: 4291957 Milliliter(s) Inj 07/22/2016 07/22/2016 In active ceftriaxone 500 mg s olution for injection RxNorm: 5044782 Inj 07/22/2016 07/22/2016 Inactive Flonase Allergy Reli ef 50 mcg/actuation nasal spray,suspension RxNorm: 9284357 1 [place] NASAL BID 07/22/2016 08/20/2016 Inactive azithromycin 250 mg tablet RxNorm: 350630 2 Tablet(s) PO on day #1, then 1 pill daily x 4 days 07/22/2016 10/12/2016 Inactive warfarin 5 mg tablet RxNorm: 824072 TAKE 1 AND 1/2 TABLETS BY MOUTH ON AND WEDNESDAY. TAKE ONLY 1 TABLET BY MOUTH ALL OTHER DAYS OF THE WEEK 07/09/2016 09/30/2016 In active levothyroxine 125 mc g tablet RxNorm: 167590 Tablet(s) TAKE ONE TA BLET BY MOUTH DAILY ON AN EMPTY STOMACH 06/23/2016 02/08/2017 Inactive levothyroxine 125 mc g tablet RxNorm: 872043 TAKE ONE TABLET BY [facility] DAILY ON AN EMPTY STOMACH 06/23/2016 06/22/2016 Inactive levothyroxine 125 mc g tablet RxNorm: 952086 TAKE ONE TABLET BY [facility] DAILY ON AN EMPTY STOMACH 06/23/2016 08/04/2017 Inactive cetirizine 10 mg tablet RxNorm: 0339768 TAKE ONE TABLET BY MOUTH DAILY 06/16/2016 10/13/2016 In active furosemide 40 mg tablet RxNorm: 408777 Tablet(s) TAKE ONE TABLET BY MOUTH DAILY 06/05/2016 12/01/2016 In active cetirizine 10 mg tablet RxNorm: 7677915 1 Tablet(s) PO daily 05/01/2016 05/30/2016 Inactive Levaquin 250 mg tablet RxNorm: 053416 Tablet(s) PO 2 pills day one and 1 pill day 2-7 04/06/2016 07/21/2016 Inactive warfarin 5 mg tablet RxNorm: 697359 Tablet(s) 1/2 TABLETS BY MOUTH ON AND WEDNESDAY. TAKE ONLY 1 TABLET BY MOUTH ALL OTHER DAYS OF THE WEEK 03/18/2016 07/07/2016 In active triamcinolone aceton sreekanth 0.025 % topical cream RxNorm: 7431907 1 Application TOP BI D 03/10/2016 08/16/2017 In active potassium chloride E R 20 mEq tablet,extended release RxNorm: 697420 1 Tablet(s) PO daily 03/04/2016 06/01/2016 Inactive Levaquin 250 mg tablet RxNorm: 447930 Tablet(s) PO 2 pills day one and 1 pill day 2-7 03/04/2016 04/05/2016 Inactive Levaquin 250 mg tablet RxNorm: 281830 Tablet(s) PO 2 pills day one and 1 pill day 2-7 03/03/2016 03/03/2016 Inactive potassium chloride E R 20 mEq tablet,extended release RxNorm: 241804 1 Tablet(s) PO daily 03/03/2016 03/03/2016 Inactive Cipro 500 mg tablet RxNorm: 540507 1 Tablet(s) PO BID 02/20/2016 07/21/2016 Inactive Cipro 500 mg tablet RxNorm: 980540 1 Tablet(s) PO BID 02/20/2016 02/19/2016 Inactive furosemide 40 mg tablet RxNorm: 415566 TAKE ONE TABLET BY MOUTH DAILY 01/27/2016 01/26/2016 In active warfarin 5 mg tablet RxNorm: 769251 TAKE 1 AND 1/2 TABLETS BY MOUTH ON AND WEDNESDAY. TAKE ONLY 1 TABLET BY MOUTH ALL OTHER DAYS OF THE WEEK 01/27/2016 01/26/2016 In active furosemide 40 mg tablet RxNorm: 381647 TAKE ONE TABLET BY MOUTH DAILY 01/27/2016 06/04/2016 In active warfarin 5 mg tablet RxNorm: 470556 TAKE 1 AND 1/2 TABLETS BY MOUTH ON AND WEDNESDAY. TAKE ONLY 1 TABLET BY MOUTH ALL OTHER DAYS OF THE WEEK 01/27/2016 03/17/2016 In active potassium chloride E R 20 mEq tablet,extended release RxNorm: 701994 1 Tablet(s) PO daily 11/20/2015 03/02/2016 Inactive furosemide 40 mg tablet RxNorm: 618913 TAKE ONE TABLET BY MOUTH DAILY 11/12/2015 01/26/2016 In active Zovirax 5 % topical cream RxNorm: 773700 TOP QID 0 09/24/2015 09/23/2015 Inactive Zovirax 5 % topical cream RxNorm: 864098 TOP QID 0 09/24/2015 11/19/2015 Inactive nystatin 100,000 uni t/gram topical cream RxNorm: 403444 1 Application TOP TID 09/17/2015 10/12/2016 In active warfarin 5 mg tablet RxNorm: 262125 TAKE 1 AND 1/2 TABLETS BY MOUTH ON AND WEDNESDAY. TAKE ONLY 1 TABLET BY MOUTH ALL OTHER DAYS OF THE WEEK 08/19/2015 01/05/2016 In active loratadine 10 mg tablet RxNorm: 044106 1 Tablet(s) PO daily 07/30/2015 07/23/2016 Inactive loratadine 10 mg tablet RxNorm: 276542 1 Tablet(s) PO daily 07/30/2015 07/29/2015 Inactive furosemide 40 mg tablet RxNorm: 149113 TAKE ONE TABLET BY MOUTH DAILY 06/24/2015 11/11/2015 In active levothyroxine 125 mc g tablet RxNorm: 746189 1 Tablet(s) PO daily 05/31/2015 05/24/2016 Inactive furosemide 40 mg tablet RxNorm: 039490 1 Tablet(s) PO daily 04/05/2015 06/23/2015 Inactive warfarin 5 mg tablet RxNorm: 621467 TAKE 1 AND 1/2 TABLETS BY MOUTH ON AND WEDNESDAY. TAKE ONLY 1 TABLET BY MOUTH ALL OTHER DAYS OF THE WEEK 02/12/2015 07/29/2015 In active Flonase Allergy Reli ef 50 mcg/actuation nasal spray,suspension RxNorm: 2 [place] NASAL daily 02/05/2015 03/06/2015 Inactive Kenalog 40 mg/mL zohra pension for injection RxNorm: 2215684 Milliliter(s) Inj 02/05/2015 02/05/2015 In active warfarin 5 mg tablet RxNorm: 581580 Take 7.5mg (1 1/2 tablets) Wednesday and and 1 Tablet(s) PO (5mg) all other days 01/11/2015 02/09/2015 Inactive levothyroxine 125 mc g tablet RxNorm: 539679 1 Tablet(s) PO every other day 01/01/2015 05/30/2015 In active alternate with 150 levothyroxine 150 mc g tablet RxNorm: 227804 1 Tablet(s) PO every other day 01/01/2015 05/30/2015 In active alternate with 125 loratadine 10 mg tablet RxNorm: 856524 Tablet(s) PO as needed No Start Date Active Fish Oil 1,000 mg ca psule RxNorm: 1 Capsule(s) PO TID No Start Date Active magnesium 250 mg tablet RxNorm: 1 Tablet(s) PO daily No Start Date Active Vitamin D3 2,000 uni t tablet RxNorm: 313184 2 Tablet(s) PO daily No Start Date Active Fosamax 35 mg tablet RxNorm: 023800 1 Tablet(s) PO QW No Start Date Active levothyroxine 125 mc g tablet RxNorm: 939870 1 Tablet(s) PO daily No Start Date 12/31/2014 Inactive levothyroxine 150 mc g tablet RxNorm: 270841 1 Tablet(s) PO daily No Start Date 12/31/2014 Inactive diltiazem 60 mg tablet RxNorm: 820901 1 Tablet(s) PO QID No Start Date 03/23/2018 Inactive meclizine 25 mg tablet RxNorm: 295440 1 Tablet(s) PO TID as needed Dizziness No Start Date 07/18/2018 Inactive furosemide 40 mg tablet RxNorm: 209802 1 Tablet(s) PO daily No Start Date 04/04/2015 Inactive potassium chloride RxNorm: miscellaneous No Start Date 11/19/2015 Inactive Vitamin D2 oral RxNorm: 4018 oral No Start Date 05/31/2015 Inactive warfarin 5 mg tablet RxNorm: 601612 1 Tablet(s) PO daily No Start Date 01/10/2015 Inactive Coumadin 4 mg tablet RxNorm: 795254 1 Tablet(s) PO Wed/ No Start Date 07/28/2017 Inactive Medication Administered Medication Codes Instruc tions Start Date Status ceftriaxone 500 mg solution for injection RxNorm: 6081020 07/22/2016 No longer A ctive Kenalog 40 mg/mL suspension for injection RxNorm: 0499256 Milliliter 07/22/2016 No longer Active Kenalog 40 mg/mL suspension for injection RxNorm: 0167856 Milliliter 02/05/2015 No longer Active Immunizations Vaccine Codes Date Status Influenza CVX: 141 03/24 completed Pneumococcal (Adult) CVX: 33 03/24/2018 completed Influenza CVX: 141 03/16 completed Pneumococcal (Adult) CVX: 133 03/16/2017 completed Influenza CVX: 141 05/06 completed Influenza CVX: 141 04/28 completed Pneumococcal CVX: 33 06/1999 completed Assessments Condition Codes Effectiv e Dates Essential (primary) hypertension ICD -10: I10 ICD-9: 401.9 08/16/2018 Sebaceous cyst ICD-10: L72.3 ICD-9: 706.2 08/16/2018 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 ICD-10: Z79.01 ICD-9: V58.61 08/16/2018 Atrophy of thyroid (acquired) ICD-10 : E03.4 ICD-9: 244.8 08/16/2018 Chronic atrial fibrillation ICD-10: I48.2 ICD-9: 427.31 08/16/2018 Encounter for screening mammogram for ma [...] 401.9 02/05/2015 ALLERGIC RHINITIS ICD-9: 477.9 02/05/2015 ACTINIC KERATOSIS ICD-9: 702.0 11/20/2014 HYPOTHYROIDISM ICD-9: 244.9 11/20/2014 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 current use of anticoagulant therapy ICD-9: V58.61 [...] Code Item Item Code Result Date Pt Aqu0324 PT 24.1 seconds 08/23/2018 Pt Oqp5445 INR 2.2 08/23/2018 Pt Aqc3455 Low Intensity - 1.5-2.0 08/23/2018 Pt Svk3875 Mod intensity - 2.0-3.0 08/23/2018 Pt Uin6700 Hi intensity - 3.0-4.0 08/23/2018 Pt Ppa1374 PT 30.9 seconds 08/16/2018 Pt Oof5525 INR 3.0 08/16/2018 Pt Xhy6927 Low Intensity - 1.5-2.0 08/16/2018 Pt Acx9175 Mod intensity - 2.0-3.0 08/16/2018 Pt Qpi3610 Hi intensity - 3.0-4.0 08/16/2018 Pt Gok0124 PT 29.5 seconds 08/01/2018 Pt Xov1980 INR 2.8 08/01/2018 Pt Bar3168 Low Intensity - 1.5-2.0 08/01/2018 Pt Vri2960 Mod intensity - 2.0-3.0 08/01/2018 Pt Rlg3859 Hi intensity - 3.0-4.0 08/01/2018 Pt Eft5899 PT 24.2 seconds 07/25/2018 Pt Vfk2483 INR 2.2 07/25/2018 Pt Vqj6518 Low Intensity - 1.5-2.0 07/25/2018 Pt Yla0321 Mod intensity - 2.0-3.0 07/25/2018 Pt Vdg3397 Hi intensity - 3.0-4.0 07/25/2018 Pt Jtg9659 PT 38.6 seconds 07/19/2018 Pt Zat3178 INR 4.0 07/19/2018 Pt Rxw5231 Low Intensity - 1.5-2.0 07/19/2018 Pt Dpq6166 Mod intensity - 2.0-3.0 07/19/2018 Pt Juu1655 Hi intensity - 3.0-4.0 07/19/2018 Pt Zht3245 PT 25.7 seconds 07/11/2018 Pt Jly2968 INR 2.4 07/11/2018 Pt Mhb6152 Low Intensity - 1.5-2.0 07/11/2018 Pt Uur4756 Mod intensity - 2.0-3.0 07/11/2018 Pt Crs0646 Hi intensity - 3.0-4.0 07/11/2018 Pt Noi7934 PT 18.5 seconds 07/08/2018 Pt Fkv0101 INR 1.6 07/08/2018 Pt Itj8257 Low Intensity - 1.5-2.0 07/08/2018 Pt Lmy4887 Mod intensity - 2.0-3.0 07/08/2018 Pt Msu2911 Hi intensity - 3.0-4.0 07/08/2018 Pt Bzt1730 PT 27.3 seconds 06/29/2018 Pt Uee4732 INR 2.6 06/29/2018 Pt Kkl4800 Low Intensity - 1.5-2.0 06/29/2018 Pt Jkc8187 Mod intensity - 2.0-3.0 06/29/2018 Pt Sbr2162 Hi intensity - 3.0-4.0 06/29/2018 Pt Fdn3318 PT 24.0 seconds 05/26/2018 Pt Umn0294 INR 2.2 05/26/2018 Pt Dad8238 Low Intensity - 1.5-2.0 05/26/2018 Pt Fug2068 Mod intensity - 2.0-3.0 05/26/2018 Pt Ape8546 Hi intensity - 3.0-4.0 05/26/2018 Cbc With Differential Ord2 WBC 8.83 K/ul 03/25/2018 Cbc With Differential Ord2 RBC 4.76 M/ul 03/25/2018 Cbc With Differential Ord2 HGB 14.1 g/dl 03/25/2018 Cbc With Differential Ord2 HCT 43.6 % 03/25/2018 Cbc With Differential Ord2 Neut% 61.6 % 03/25/2018 Cbc With Differential Ord2 MCV 91.6 fl 03/25/2018 Cbc With Differential Ord2 Lymph% 24.8 % 03/25/2018 Cbc With Differential Ord2 [place]% 9.5 % 03/25/2018 Cbc With Differential Ord2 [...] 2.19 K/ul 03/25/2018 Cbc With Differential Ord2 [place] ABS# 0.8 K/ul 03/25/2018 Cbc With Differential Ord2 Eos ABS# 0.3 K/ul 03/25/2018 Cbc With Differential Ord2 Baso ABS# 0.0 K/ul 03/25/2018 Lipid Ord30 CHOL 156 mg/dL 03/25/2018 Lipid Ord30 HDL 52.0 mg/dl 03/25/2018 Lipid Ord30 TRIG 98 mg/dL 03/25/2018 Lipid Ord30 LDL 84 mg/dL 03/25/2018 Lipid Ord30 C/HDL 3.0 Ratio 03/25/2018 Tsh Ord6 TSH (3rd IS) 2.09 uIU/mL 03/25/2018 Free T4 Tes864 FREE T4 1.73 ng/dL 03/25/2018 Comp Metabolic Zlf365 NA 143 mEq/L 03/25/2018 Comp Metabolic Vjy599 K 4.6 mEq/L 03/25/2018 Comp Metabolic Sbn282 CL 108 mEq/L 03/25/2018 Comp Metabolic Det227 CO2 26.0 mEq/L 03/25/2018 Comp Metabolic Afj409 AN ION GAP 14 03/25/2018 Comp Metabolic Dlc317 GL UCOSE 87 mg/dL 03/25/2018 Comp Metabolic Uwv345 Cr eat 1.2 mg/dL 03/25/2018 Comp Metabolic Cwz398 eG FR 48 ml/min/1.73m2 03/25 Comp Metabolic Flq895 BUN 18 mg/dL 03/25/2018 Comp Metabolic Ydf456 B/ C Ratio 15.5 Ratio 03/25/2018 Comp Metabolic Ybx594 CA LCIUM 9.1 mg/dL 03/25/2018 Comp Metabolic Bsz341 AL K PHOS 58 U/L 03/25/2018 Comp Metabolic Iuf439 T(SGOT) 21 U/L 03/25/2018 Comp Metabolic Pir388 AL T(SGPT) 13 U/L 03/25/2018 Comp Metabolic Fef107 BI LI T 0.7 mg/dL 03/25/2018 Comp Metabolic Jpn732 AL BUMIN 3.2 g/dL 03/25/2018 Comp Metabolic Yqg334 TP RO 5.5 g/dL 03/25/2018 Comp Metabolic Vpx630 GL OB 2.3 g/dL 03/25/2018 Comp Metabolic Wfi847 A/ G Ratio 1.4 Ratio 03/25/2018 Comp Metabolic Fze542 Os mo 286 mOsmo 03/25/2018 Pt Wpa5039 PT 29.0 seconds 03/22/2018 Pt Gdu6141 INR 2.7 03/22/2018 Pt Tih9561 Low Intensity - 1.5-2.0 03/22/2018 Pt Aha1540 Mod intensity - 2.0-3.0 03/22/2018 Pt Orf1597 Hi intensity - 3.0-4.0 03/22/2018 Pt Sdl5597 PT 27.1 seconds 02/25/2018 Pt Ihv4155 INR 2.5 02/25/2018 Pt Nbv8742 Low Intensity - 1.5-2.0 02/25/2018 Pt Hgb4338 Mod intensity - 2.0-3.0 02/25/2018 Pt Ivv3674 Hi intensity - 3.0-4.0 02/25/2018 Pt Bqr6777 PT 26.1 seconds 01/26/2018 Pt Hah0972 INR 2.4 01/26/2018 Pt Itg0565 Low Intensity - 1.5-2.0 01/26/2018 Pt Orw1014 Mod intensity - 2.0-3.0 01/26/2018 Pt Lwp2658 Hi intensity - 3.0-4.0 01/26/2018 Pt Ekp9303 PT 22.8 seconds 12/24/2017 Pt Hty7579 INR 2.0 12/24/2017 Pt Tym8891 Low Intensity - 1.5-2.0 12/24/2017 Pt Dsr4724 Mod intensity - 2.0-3.0 12/24/2017 Pt Hft6521 Hi intensity - 3.0-4.0 12/24/2017 Pt Gjp0764 PT 29.4 seconds 11/18/2017 Pt Rxg3070 INR 2.8 11/18/2017 Pt Bzk0489 Low Intensity - 1.5-2.0 11/18/2017 Pt Blo4172 Mod intensity - 2.0-3.0 11/18/2017 Pt Rvv0059 Hi intensity - 3.0-4.0 11/18/2017 Pt Iez9428 PT 26.6 seconds 09/13/2017 Pt Snl2849 INR 2.4 09/13/2017 Pt Iic2828 Low Intensity - 1.5-2.0 09/13/2017 Pt Jul6800 Mod intensity - 2.0-3.0 09/13/2017 Pt Sdg1813 Hi intensity - 3.0-4.0 09/13/2017 Pt Oct4865 PT 28.2 seconds 08/10/2017 Pt Xbx1486 INR 2.6 08/10/2017 Pt Uuq6147 Low Intensity - 1.5-2.0 08/10/2017 Pt Uke8192 Mod intensity - 2.0-3.0 08/10/2017 Pt Xej2976 Hi intensity - 3.0-4.0 08/10/2017 Pt Zjp2429 PT 33.9 seconds 07/27/2017 Pt Voe1037 INR 3.3 07/27/2017 Pt Vec9845 Low Intensity - 1.5-2.0 07/27/2017 Pt Zuz9058 Mod intensity - 2.0-3.0 07/27/2017 Pt Fvb0529 Hi intensity - 3.0-4.0 07/27/2017 Pt Tgy4277 PT 29.1 seconds 06/29/2017 Pt Syy4122 INR 2.7 06/29/2017 Pt Zfm7007 Low Intensity - 1.5-2.0 06/29/2017 Pt Yzl4663 Mod intensity - 2.0-3.0 06/29/2017 Pt Omr9448 Hi intensity - 3.0-4.0 06/29/2017 Pt Rez3006 PT 30.3 seconds 06/11/2017 Pt Pes7082 INR 2.9 06/11/2017 Pt Jst3274 Low Intensity - 1.5-2.0 06/11/2017 Pt Xgf2480 Mod intensity - 2.0-3.0 06/11/2017 Pt Hkx1645 Hi intensity - 3.0-4.0 06/11/2017 Pt Eto4322 PT 39.1 seconds 06/07/2017 Pt Sfw7140 INR 3.9 06/07/2017 Pt Vgs0768 Low Intensity - 1.5-2.0 06/07/2017 Pt Bjp2125 Mod intensity - 2.0-3.0 06/07/2017 Pt Htx0503 Hi intensity - 3.0-4.0 06/07/2017 Pt Gqs3101 PT 34.2 seconds 05/26/2017 Pt Pjx1405 INR 3.3 05/26/2017 Pt Rlt6442 Low Intensity - 1.5-2.0 05/26/2017 Pt Sba2128 Mod intensity - 2.0-3.0 05/26/2017 Pt Ifx3565 Hi intensity - 3.0-4.0 05/26/2017 Pt Mau4043 PT 28.6 seconds 04/23/2017 Pt Rqt1935 INR 2.7 04/23/2017 Pt Ldd5876 Low Intensity - 1.5-2.0 04/23/2017 Pt Vbs7442 Mod intensity - 2.0-3.0 04/23/2017 Pt Vlh9699 Hi intensity - 3.0-4.0 04/23/2017 Comp Metabolic Tno626 NA 138 mEq/L 04/23/2017 Comp Metabolic Oji209 K 4.2 mEq/L 04/23/2017 Comp Metabolic Twb939 CL 101 mEq/L 04/23/2017 Comp Metabolic Urc438 CO2 28.0 mEq/L 04/23/2017 Comp Metabolic Xew239 AN ION GAP 13 04/23/2017 Comp Metabolic Ssi917 GL UCOSE 89 mg/dL 04/23/2017 Comp Metabolic Qii467 Cr eat 1.1 mg/dL 04/23/2017 Comp Metabolic Kqm149 eG FR 51 ml/min/1.73m2 04/23 Comp Metabolic Mrp801 BUN 26 mg/dL 04/23/2017 Comp Metabolic Djj912 B/ C Ratio 23.9 Ratio 04/23/2017 Comp Metabolic Kbb560 CA LCIUM 9.4 mg/dL 04/23/2017 Comp Metabolic Qbq503 AL K PHOS 95 U/L 04/23/2017 Comp Metabolic Lqx800 T(SGOT) 18 U/L 04/23/2017 Comp Metabolic Qcl229 AL T(SGPT) 17 U/L 04/23/2017 Comp Metabolic Utt493 BI LI T 0.7 mg/dL 04/23/2017 Comp Metabolic Xno812 AL BUMIN 3.2 g/dL 04/23/2017 Comp Metabolic Ryc808 TP RO 5.6 g/dL 04/23/2017 Comp Metabolic Swu755 GL OB 2.4 g/dL 04/23/2017 Comp Metabolic Zsg609 A/ G Ratio 1.3 Ratio 04/23/2017 Comp Metabolic Tbi364 Os mo 280 mOsmo 04/23/2017 Pt Iya6206 PT 24.4 seconds 03/16/2017 Pt Mev0337 INR 2.2 03/16/2017 Pt Ako7486 Low Intensity - 1.5-2.0 03/16/2017 Pt Qpx1564 Mod intensity - 2.0-3.0 03/16/2017 Pt Arx1187 Hi intensity - 3.0-4.0 03/16/2017 Pt Gas6717 PT 28.2 seconds 02/24/2017 Pt Tdk9113 INR 2.6 02/24/2017 Pt Qpi2634 Low Intensity - 1.5-2.0 02/24/2017 Pt Nqg6654 Mod intensity - 2.0-3.0 02/24/2017 Pt Lsm7765 Hi intensity - 3.0-4.0 02/24/2017 Pt Xhd5643 PT 26.8 seconds 02/08/2017 Pt Myq6091 INR 2.5 02/08/2017 Pt Jiw0295 Low Intensity - 1.5-2.0 02/08/2017 Pt Fdd8997 Mod intensity - 2.0-3.0 02/08/2017 Pt Ouk5384 Hi intensity - 3.0-4.0 02/08/2017 Free T4 Zti313 FREE T4 2.09 ng/dL 01/25/2017 Tsh Ord6 hTSH II 0.46 uIU/mL 01/25/2017 Lipid Ord30 CHOL 150 mg/dL 01/25/2017 Lipid Ord30 HDL 55.0 mg/dl 01/25/2017 Lipid Ord30 TRIG 66 mg/dL 01/25/2017 Lipid Ord30 LDL 82 mg/dL 01/25/2017 Lipid Ord30 C/HDL 2.7 Ratio 01/25/2017 Pt Ldu4824 PT 29.9 seconds 01/25/2017 Pt Why2363 INR 2.8 01/25/2017 Pt Bxy8078 Low Intensity - 1.5-2.0 01/25/2017 Pt Ffl2096 Mod intensity - 2.0-3.0 01/25/2017 Pt Hyo5943 Hi intensity - 3.0-4.0 01/25/2017 Comp Metabolic Pgc268 NA 143 mEq/L 01/25/2017 Comp Metabolic Usw021 K 3.9 mEq/L 01/25/2017 Comp Metabolic Vyb414 CL 108 mEq/L 01/25/2017 Comp Metabolic Ics233 CO2 23.0 mEq/L 01/25/2017 Comp Metabolic Ado607 AN ION GAP 16 01/25/2017 Comp Metabolic Wxx494 GL UCOSE 80 mg/dL 01/25/2017 Comp Metabolic Qnv564 Cr eat 1.0 mg/dL 01/25/2017 Comp Metabolic Eli130 eG FR 57 ml/min/1.73m2 01/25 Comp Metabolic Pjd119 BUN 25 mg/dL 01/25/2017 Comp Metabolic Lul190 B/ C Ratio 25.0 Ratio 01/25/2017 Comp Metabolic Mov944 CA LCIUM 8.5 mg/dL 01/25/2017 Comp Metabolic Eid475 AL K PHOS 81 U/L 01/25/2017 Comp Metabolic Ybc316 T(SGOT) 19 U/L 01/25/2017 Comp Metabolic Owm694 AL T(SGPT) 23 U/L 01/25/2017 Comp Metabolic Hyr585 BI LI T 0.5 mg/dL 01/25/2017 Comp Metabolic Rdp256 AL BUMIN 2.9 g/dL 01/25/2017 Comp Metabolic Keg890 TP RO 5.1 g/dL 01/25/2017 Comp Metabolic Lba470 GL OB 2.2 g/dL 01/25/2017 Comp Metabolic Uhj854 A/ G Ratio 1.3 Ratio 01/25/2017 Comp Metabolic Cww031 Os mo 288 mOsmo 01/25/2017 Cbc With [...] 92.4 fl 01/25/2017 Cbc With Differential Ord2 [place]% 8.2 % 01/25/2017 Cbc With Differential Ord2 MCH 30.7 pg 01/25/2017 Cbc With Differential Ord2 MCHC 33.2 pg 01/25/2017 Cbc With Differential Ord2 Eos% 3.4 % 01/25/2017 Cbc With Differential Ord2 PLT 258 K/ul 01/25/2017 Cbc With Differential Ord2 Baso% 0.5 % 01/25/2017 Cbc With Differential Ord2 RDW 16.5 % 01/25/2017 Cbc With Differential Ord2 Neut ABS# 5.88 K/ul 01/25/2017 Cbc With Differential Ord2 Lymph ABS# 3.10 K/ul 01/25/2017 Cbc With Differential Ord2 [place] ABS# 0.8 K/ul 01/25/2017 Cbc With Differential Ord2 Eos ABS# 0.4 K/ul 01/25/2017 Cbc With Differential Ord2 Baso ABS# 0.1 K/ul 01/25/2017 Pt Ooe3276 PT 26.1 seconds 11/26/2016 Pt Giz4123 INR 2.6 11/26/2016 Pt Adu0514 Low Intensity - 1.5-2.0 11/26/2016 Pt Kwl9548 Mod intensity - 2.0-3.0 11/26/2016 Pt Adk5883 Hi intensity - 3.0-4.0 11/26/2016 Pt Lie7835 PT 26.2 seconds 10/29/2016 Pt Dkx4724 INR 2.6 10/29/2016 Pt Dhl8623 Low Intensity - 1.5-2.0 10/29/2016 Pt Ina6822 Mod intensity - 2.0-3.0 10/29/2016 Pt Jgc7436 Hi intensity - 3.0-4.0 10/29/2016 Pt Tze8014 PT 20.8 seconds 10/13/2016 Pt Mru2579 INR 1.9 10/13/2016 Pt Jow7752 Low Intensity - 1.5-2.0 10/13/2016 Pt Cfr4248 Mod intensity - 2.0-3.0 10/13/2016 Pt Epa1890 Hi intensity - 3.0-4.0 10/13/2016 Pt Hrm9597 PT 26.5 seconds 10/01/2016 Pt Goy0156 INR 2.6 10/01/2016 Pt Sjr1917 Low Intensity - 1.5-2.0 10/01/2016 Pt Mgc1261 Mod intensity - 2.0-3.0 10/01/2016 Pt Hhj3538 Hi intensity - 3.0-4.0 10/01/2016 Pt Jpm9067 PT 24.6 seconds 09/14/2016 Pt Nik4195 INR 2.4 09/14/2016 Pt Mkd9897 Low Intensity - 1.5-2.0 09/14/2016 Pt Qyu9613 Mod intensity - 2.0-3.0 09/14/2016 Pt Xnh3163 Hi intensity - 3.0-4.0 09/14/2016 Pt Isg9944 PT 18.0 seconds 09/07/2016 Pt Bxq3388 INR 1.6 09/07/2016 Pt Sig7584 Low Intensity - 1.5-2.0 09/07/2016 Pt Zza4083 Mod intensity - 2.0-3.0 09/07/2016 Pt Hkt5466 Hi intensity - 3.0-4.0 09/07/2016 Pt Tbf3523 PT 23.7 seconds 08/12/2016 Pt Gxn3408 INR 2.2 08/12/2016 Pt Ltc5444 Low Intensity - 1.5-2.0 08/12/2016 Pt Ujq5822 Mod intensity - 2.0-3.0 08/12/2016 Pt Ygv2055 Hi intensity - 3.0-4.0 08/12/2016 Pt Vrg0379 PT 21.6 seconds 07/27/2016 Pt Gha4929 INR 2.0 07/27/2016 Pt Hfn0098 Low Intensity - 1.5-2.0 07/27/2016 Pt Dix2155 Mod intensity - 2.0-3.0 07/27/2016 Pt Qda6526 Hi intensity - 3.0-4.0 07/27/2016 Pt Dpb1790 PT 26.0 seconds 06/15/2016 Pt Zjt1451 INR 2.5 06/15/2016 Pt Dst5087 Low Intensity - 1.5-2.0 06/15/2016 Pt Fer9874 Mod intensity - 2.0-3.0 06/15/2016 Pt Var5649 Hi intensity - 3.0-4.0 06/15/2016 Pt Gsw6106 PT 18.8 seconds 06/01/2016 Pt Yjt3406 INR 1.7 06/01/2016 Pt Vki3265 Low Intensity - 1.5-2.0 06/01/2016 Pt Gol8987 Mod intensity - 2.0-3.0 06/01/2016 Pt Hdp9887 Hi intensity - 3.0-4.0 06/01/2016 Pt Cua6942 PT 20.8 seconds 05/12/2016 Pt Ldc5547 INR 1.9 05/12/2016 Pt Zlg7102 Low Intensity - 1.5-2.0 05/12/2016 Pt Gbf4578 Mod intensity - 2.0-3.0 05/12/2016 Pt Pcr3068 Hi intensity - 3.0-4.0 05/12/2016 Pt Gbe8529 PT 24.5 seconds 04/10/2016 Pt Czb2903 INR 2.4 04/10/2016 Pt Rig7779 Low Intensity - 1.5-2.0 04/10/2016 Pt Dmb8244 Mod intensity - 2.0-3.0 04/10/2016 Pt Iei3006 Hi intensity - 3.0-4.0 04/10/2016 Pt Yik4802 PT 26.4 seconds 03/10/2016 Pt Nuy0491 INR 2.6 03/10/2016 Pt Hvo1705 Low Intensity - 1.5-2.0 03/10/2016 Pt Smt7335 Mod intensity - 2.0-3.0 03/10/2016 Pt Klt9955 Hi intensity - 3.0-4.0 03/10/2016 Pt Pdx8426 PT 24.9 seconds 03/06/2016 Pt Bdg0040 INR 2.4 03/06/2016 Pt Tpk5474 Low Intensity - 1.5-2.0 03/06/2016 Pt Npa2833 Mod intensity - 2.0-3.0 03/06/2016 Pt Zlh9161 Hi intensity - 3.0-4.0 03/06/2016 Pt Erc2977 PT 21.9 seconds 02/25/2016 Pt Njs7264 INR 2.0 02/25/2016 Pt Csq2940 Low Intensity - 1.5-2.0 02/25/2016 Pt Lap1232 Mod intensity - 2.0-3.0 02/25/2016 Pt Lov5813 Hi intensity - 3.0-4.0 02/25/2016 Pt Cny4295 PT 21.8 seconds 02/21/2016 Pt Psi7417 INR 2.0 02/21/2016 Pt Kgu6033 Low Intensity - 1.5-2.0 02/21/2016 Pt Iuw5807 Mod intensity - 2.0-3.0 02/21/2016 Pt Hwa7987 Hi intensity - 3.0-4.0 02/21/2016 Culture Urine [id number] URI NE CULTURE SEE NOTES 02/20/2016 Culture Urine [id number] Con tinued Results 02/20/2016 Urine Culture Ucult Comp lete Growth of aerobe sent to ref lab 02/18/2016 Pt Pxl7881 PT 27.1 seconds 02/14/2016 Pt Mem9076 INR 2.7 02/14/2016 Pt Chj1575 Low Intensity - 1.5-2.0 02/14/2016 Pt Ner4593 Mod intensity - 2.0-3.0 02/14/2016 Pt Iqf6181 Hi intensity - 3.0-4.0 02/14/2016 Free T4 Lho128 FREE T4 1.87 ng/dL 02/14/2016 Comp Metabolic Pdk444 NA 139 mEq/L 02/14/2016 Comp Metabolic Rls842 K 3.8 mEq/L 02/14/2016 Comp Metabolic Qxq230 CL 103 mEq/L 02/14/2016 Comp Metabolic Fqv068 CO2 27.0 mEq/L 02/14/2016 Comp Metabolic Lde287 AN ION GAP 13 02/14/2016 Comp Metabolic Fqh906 GL UCOSE 91 mg/dL 02/14/2016 Comp Metabolic Hfv821 Cr eat 1.0 mg/dL 02/14/2016 Comp Metabolic Fvr193 eG FR 58 ml/min/1.73m2 02/13 Comp Metabolic Yfr087 BUN 16 mg/dL 02/14/2016 Comp Metabolic Vtp689 B/ C Ratio 16.2 Ratio 02/14/2016 Comp Metabolic Oxs825 CA LCIUM 9.0 mg/dL 02/14/2016 Comp Metabolic Rko045 AL K PHOS 88 U/L 02/14/2016 Comp Metabolic Opi999 T(SGOT) 17 U/L 02/14/2016 Comp Metabolic Ixv898 AL T(SGPT) 12 U/L 02/14/2016 Comp Metabolic Usn243 BI LI T 0.6 mg/dL 02/14/2016 Comp Metabolic Exg384 AL BUMIN 3.2 g/dL 02/14/2016 Comp Metabolic Wna700 TP RO 5.8 g/dL 02/14/2016 Comp Metabolic Wxz462 GL OB 2.6 g/dL 02/14/2016 Comp Metabolic Wdp681 A/ G Ratio 1.3 Ratio 02/14/2016 Comp Metabolic Qmb841 Os mo 278 mOsmo 02/14/2016 Urinalysis Ord28 [...] 29.2 pg 02/14/2016 Cbc With Differential Ord2 [place]% 9.3 % 02/14/2016 Cbc With Differential Ord2 [...] 2.55 K/ul 02/14/2016 Cbc With Differential Ord2 [place] ABS# 0.8 K/ul 02/14/2016 Cbc With Differential Ord2 Eos ABS# 0.4 K/ul 02/14/2016 Cbc With Differential Ord2 Baso ABS# 0.1 K/ul 02/14/2016 Tsh Ord6 hTSH II 0.80 uIU/mL 02/14/2016 Pt Hmc7431 PT 34.6 seconds 02/06/2016 Pt Nua3017 INR 3.7 02/06/2016 Pt Gyw0670 Low Intensity - 1.5-2.0 02/06/2016 Pt Exe4593 Mod intensity - 2.0-3.0 02/06/2016 Pt Lzf6749 Hi intensity - 3.0-4.0 02/06/2016 Pt Mth6001 PT 33.3 seconds 01/23/2016 Pt Lio2787 INR 3.5 01/23/2016 Pt Gon5981 Low Intensity - 1.5-2.0 01/23/2016 Pt Hso9168 Mod intensity - 2.0-3.0 01/23/2016 Pt Waw5695 Hi intensity - 3.0-4.0 01/23/2016 Pt Qnj0678 PT 30.5 seconds 12/31/2015 Pt Xgg1144 INR 3.2 12/31/2015 Pt Udu5382 Low Intensity - 1.5-2.0 12/31/2015 Pt Gfr3658 Mod intensity - 2.0-3.0 12/31/2015 Pt Abh6051 Hi intensity - 3.0-4.0 12/31/2015 Pt Mnf2487 PT 35.6 seconds 12/25/2015 Pt Egd2072 INR 3.9 12/25/2015 Pt Jgl6735 Low Intensity - 1.5-2.0 12/25/2015 Pt Nsv9204 Mod intensity - 2.0-3.0 12/25/2015 Pt Pae7408 Hi intensity - 3.0-4.0 12/25/2015 Pt Rib3123 PT 30.8 seconds 11/21/2015 Pt Muc2116 INR 3.2 11/21/2015 Pt Ssx7200 Low Intensity - 1.5-2.0 11/21/2015 Pt Tnp4567 Mod intensity - 2.0-3.0 11/21/2015 Pt Alv4817 Hi intensity - 3.0-4.0 11/21/2015 Uric Acid Ord77 Uric A 5.9 mg/dL 11/21/2015 Cbc With Differential Ord2 WBC 10.76 K/ul 11/20/2015 Cbc With Differential Ord2 RBC 4.04 M/ul 11/20/2015 Cbc With Differential Ord2 HGB 12.1 g/dl 11/20/2015 Cbc With Differential Ord2 HCT 38.5 % 11/20/2015 Cbc With Differential Ord2 Neut% 65.5 % 11/20/2015 Cbc With Differential Ord2 Lymph% 23.3 % 11/20/2015 Cbc With Differential Ord2 MCV 95.3 fl 11/20/2015 Cbc With Differential Ord2 MCH 30.0 pg 11/20/2015 Cbc With Differential Ord2 [place]% 8.1 % 11/20/2015 Cbc With Differential Ord2 [...] 2.51 K/ul 11/20/2015 Cbc With Differential Ord2 [place] ABS# 0.9 K/ul 11/20/2015 Cbc With Differential Ord2 Eos ABS# 0.3 K/ul 11/20/2015 Cbc With Differential Ord2 Baso ABS# 0.0 K/ul 11/20/2015 Comp Metabolic Yvg158 NA 137 mEq/L 10/22/2015 Comp Metabolic Pek082 K 3.9 mEq/L 10/22/2015 Comp Metabolic Zzm724 CL 100 mEq/L 10/22/2015 Comp Metabolic Gbk994 CO2 31.0 mEq/L 10/22/2015 Comp Metabolic Jdv379 AN ION GAP 10 10/22/2015 Comp Metabolic Sjb627 GL UCOSE 94 mg/dL 10/22/2015 Comp Metabolic Ivu722 Cr eat 1.0 mg/dL 10/22/2015 Comp Metabolic Yyd014 eG FR 55 ml/min/1.73m2 10/21 Comp Metabolic Kcm986 BUN 19 mg/dL 10/22/2015 Comp Metabolic Qmu101 B/ C Ratio 18.3 Ratio 10/22/2015 Comp Metabolic Var239 CA LCIUM 8.8 mg/dL 10/22/2015 Comp Metabolic Bvv700 AL K PHOS 83 U/L 10/22/2015 Comp Metabolic Eun599 T(SGOT) 15 U/L 10/22/2015 Comp Metabolic Nna575 AL T(SGPT) 13 U/L 10/22/2015 Comp Metabolic Rkx895 BI LI T 0.9 mg/dL 10/22/2015 Comp Metabolic Nce594 AL BUMIN 2.8 g/dL 10/22/2015 Comp Metabolic Old266 TP RO 5.4 g/dL 10/22/2015 Comp Metabolic Ygl571 GL OB 2.6 g/dL 10/22/2015 Comp Metabolic Llm288 A/ G Ratio 1.1 Ratio 10/22/2015 Comp Metabolic Tbk436 Os mo 276 mOsmo 10/22/2015 Pt Wyd3140 PT 22.8 seconds 10/22/2015 Pt Gdd3470 INR 2.1 10/22/2015 Pt Ibk1234 Low Intensity - 1.5-2.0 10/22/2015 Pt Fjn3114 Mod intensity - 2.0-3.0 10/22/2015 Pt Stf1900 Hi intensity - 3.0-4.0 10/22/2015 Bili D Ord93 BILI D 0.1 mg/dL 10/22/2015 Bili D Ord93 BILI I 0.8 mg/dL 10/22/2015 Pt Crn2273 PT 28.0 seconds 09/16/2015 Pt Vcw1588 INR 2.7 09/16/2015 Pt Wtf2061 Low Intensity - 1.5-2.0 09/16/2015 Pt Sju0373 Mod intensity - 2.0-3.0 09/16/2015 Pt Ckk7517 Hi intensity - 3.0-4.0 09/16/2015 Lipid Ord30 CHOL 169 mg/dL 09/16/2015 Lipid Ord30 HDL 66.0 mg/dl 09/16/2015 Lipid Ord30 TRIG 78 mg/dL 09/16/2015 Lipid Ord30 LDL 87 mg/dL 09/16/2015 Lipid Ord30 C/HDL 2.6 Ratio 09/16/2015 Free T4 Uje606 FREE T4 1.73 ng/dL 09/16/2015 Tsh Ord6 hTSH II 1.40 uIU/mL 09/16/2015 Pt Fde0738 PT 26.6 seconds 08/21/2015 Pt Ifr5420 INR 2.6 08/21/2015 Pt Svg0604 Low Intensity - 1.5-2.0 08/21/2015 Pt Qqy8926 Mod intensity - 2.0-3.0 08/21/2015 Pt Fal3647 Hi intensity - 3.0-4.0 08/21/2015 Comp Metabolic Yoj827 NA 141 mEq/L 08/08/2015 Comp Metabolic Fvx005 K 3.3 mEq/L 08/08/2015 Comp Metabolic Wfg260 CL 102 mEq/L 08/08/2015 Comp Metabolic Hfu254 CO2 31.0 mEq/L 08/08/2015 Comp Metabolic Xfo258 AN ION GAP 11 08/08/2015 Comp Metabolic Cyq712 GL UCOSE 83 mg/dL 08/08/2015 Comp Metabolic Pxd735 Cr eat 1.0 mg/dL 08/08/2015 Comp Metabolic Cqd893 eG FR 55 ml/min/1.73m2 08/08 Comp Metabolic Axx958 BUN 19 mg/dL 08/08/2015 Comp Metabolic Rol849 B/ C Ratio 18.3 Ratio 08/08/2015 Comp Metabolic Fgr891 CA LCIUM 8.9 mg/dL 08/08/2015 Comp Metabolic Zmu452 AL K PHOS 84 U/L 08/08/2015 Comp Metabolic Aua731 T(SGOT) 20 U/L 08/08/2015 Comp Metabolic Xaj198 AL T(SGPT) 18 U/L 08/08/2015 Comp Metabolic Dny424 BI LI T 0.6 mg/dL 08/08/2015 Comp Metabolic Vsq342 AL BUMIN 3.3 g/dL 08/08/2015 Comp Metabolic Jmm919 TP RO 5.9 g/dL 08/08/2015 Comp Metabolic Qhe440 GL OB 2.6 g/dL 08/08/2015 Comp Metabolic Tzs986 A/ G Ratio 1.3 Ratio 08/08/2015 Comp Metabolic Xto810 Os mo 283 mOsmo 08/08/2015 Cbc With [...] 30.0 pg 08/08/2015 Cbc With Differential Ord2 [place]% 8.2 % 08/08/2015 Cbc With Differential Ord2 Eos% 3.8 % 08/08/2015 Cbc With Differential Ord2 MCHC 32.7 pg 08/08/2015 Cbc With Differential Ord2 Baso% 0.4 % 08/08/2015 Cbc With Differential Ord2 PLT 296 K/ul 08/08/2015 Cbc With Differential Ord2 Neut ABS# 6.44 K/ul 08/08/2015 Cbc With Differential Ord2 RDW 16.0 % 08/08/2015 Cbc With Differential Ord2 Lymph ABS# 2.90 K/ul 08/08/2015 Cbc With Differential Ord2 [place] ABS# 0.9 K/ul 08/08/2015 Cbc With Differential [...] Ord93 BILI I 0.5 mg/dL 08/08/2015 Pt Whl5497 PT 31.8 seconds 08/05/2015 Pt Bhu2271 INR 3.2 08/05/2015 Pt Vvt6131 Low Intensity - 1.5-2.0 08/05/2015 Pt Abt6158 Mod intensity - 2.0-3.0 08/05/2015 Pt Sep5523 Hi intensity - 3.0-4.0 08/05/2015 Pt Pil1228 PT 27.4 seconds 06/27/2015 Pt Ijc0639 INR 2.6 06/27/2015 Pt Gfe2159 Low Intensity - 1.5-2.0 06/27/2015 Pt Oto5500 Mod intensity - 2.0-3.0 06/27/2015 Pt Wka2631 Hi intensity - 3.0-4.0 06/27/2015 Tsh Ord6 [...] Ord2 RDW 15.1 % 05/31/2015 Free T4 Uoi410 FREE T4 1.89 ng/dL 05/31/2015 Comp Metabolic Gcj094 NA 140 mEq/L 05/31/2015 Comp Metabolic Eae637 K 3.3 mEq/L 05/31/2015 Comp Metabolic Pss218 CL 99 mEq/L 05/31/2015 Comp Metabolic Lqq785 CO2 30.0 mEq/L 05/31/2015 Comp Metabolic Eyl284 AN ION GAP 14 05/31/2015 Comp Metabolic Vqs693 GL UCOSE 70 mg/dL 05/31/2015 Comp Metabolic Ebi349 Cr eat 1.0 mg/dL 05/31/2015 Comp Metabolic Hvv352 eG FR 55 ml/min/1.73m2 05/31 Comp Metabolic Izp970 BUN 23 mg/dL 05/31/2015 Comp Metabolic Hnb529 B/ C Ratio 22.1 Ratio 05/31/2015 Comp Metabolic Vrg411 CA LCIUM 8.9 mg/dL 05/31/2015 Comp Metabolic Ihi175 AL K PHOS 86 U/L 05/31/2015 Comp Metabolic Usy721 T(SGOT) 28 U/L 05/31/2015 Comp Metabolic Con264 AL T(SGPT) 30 U/L 05/31/2015 Comp Metabolic Nue153 BI LI T 0.4 mg/dL 05/31/2015 Comp Metabolic Vgp550 AL BUMIN 3.3 g/dL 05/31/2015 Comp Metabolic Oyi723 TP RO 6.0 g/dL 05/31/2015 Comp Metabolic Hlh292 GL OB 2.7 g/dL 05/31/2015 Comp Metabolic Bux710 A/ G Ratio 1.2 Ratio 05/31/2015 Comp Metabolic Vqb177 Os mo 282 mOsmo 05/31/2015 Pt Nbr4211 PT 23.3 seconds 04/15/2015 Pt Azb9608 INR 2.2 04/15/2015 Pt Aet7547 Low Intensity - 1.5-2.0 04/15/2015 Pt Wjg7970 Mod intensity - 2.0-3.0 04/15/2015 Pt Mnv9331 Hi intensity - 3.0-4.0 04/15/2015 Pt Bev0060 PT 19.5 seconds 04/04/2015 Pt Qnw5752 INR 1.7 04/04/2015 Pt Nwe5009 Low Intensity - 1.5-2.0 04/04/2015 Pt Eyh9443 Mod intensity - 2.0-3.0 04/04/2015 Pt Fuh4375 Hi intensity - 3.0-4.0 04/04/2015 Pt Eki9698 PT 39.8 seconds 04/01/2015 Pt Xax7686 INR 4.3 04/01/2015 Pt Fgs1074 Low Intensity - 1.5-2.0 04/01/2015 Pt Omo4182 Mod intensity - 2.0-3.0 04/01/2015 Pt Bhb8611 Hi intensity - 3.0-4.0 04/01/2015 Metabolic Ord15 [...] Metabolic Ord15 CALCIUM 8.7 mg/dL 02/28/2015 Pt Ofp6874 PT 31.4 seconds 02/28/2015 Pt Wch6478 INR 3.2 02/28/2015 Pt Mpr6754 Low Intensity - 1.5-2.0 02/28/2015 Pt Bke2331 Mod intensity - 2.0-3.0 02/28/2015 Pt Xrl8962 Hi intensity - 3.0-4.0 02/28/2015 Pt Fej5666 PT 23.2 seconds 01/18/2015 Pt Ylz7494 INR 2.1 01/18/2015 Pt Fvn1428 Low Intensity - 1.5-2.0 01/18/2015 Pt Ayq7130 Mod intensity - 2.0-3.0 01/18/2015 Pt Pii9236 Hi intensity - 3.0-4.0 01/18/2015 Pt Yqd1476 PT 18.2 seconds 01/10/2015 Pt Isg4905 INR 1.6 01/10/2015 Pt Sfz7079 Low Intensity - 1.5-2.0 01/10/2015 Pt Sww2944 Mod intensity - 2.0-3.0 01/10/2015 Pt Xlh7158 Hi intensity - 3.0-4.0 01/10/2015 Review of [...] lips 09/30/2017 None Full Exam - General 1995 Ears/Nose/Throat [...] rhythm 07/31/2016 None Full Exam - General [facility] Constitutional general appearance Overall: well developed 05/01/2016 [...] 03/24/2018 ADMIN PNEUMOCOCCAL V ACCINE SNOMED CT: 91822353 CPT-4: G0009 03/24/2018 FLU VACC PRSV FREE I NC ANTIG Formatting Model/CDA Sections, Assigned to/Dorothea Tan CPT-4: [id number] 03/24/2018 Pneumococcal Polysac charide Vaccine, 23-Valent, Ad CPT-4: 80725 03/24/2018 TRIAMCINOLONE ACET I [place] NOS CPT-4: J3301 06/15/2017 THER/PROPH/DIAG INJ SC/IM CPT-4: 14926 06/15/2017 ADMIN PNEUMOCOCCAL V ACCINE SNOMED CT: 79000414 CPT-4: G0009 03/16/2017 ADMIN INFLUENZA VIRU S VAC CPT-4: G0008 03/16/2017 FLU VAC NO PRSV 4 VA L 3 YRS+ CPT-4: 49570 03/16/2017 PNEUMOCOCCAL VACC [address]: 50183893 CPT-4: 48708 03/16/2017 URINALYSIS NONAUTO W /O SCOPE CPT-4: 35210 08/26/2016 THER/PROPH/DIAG INJ SC/IM CPT-4: 81025 07/22/2016 TRIAMCINOLONE ACET I [place] NOS CPT-4: J3301 07/22/2016 ROCEPHIN, PER 250 MG CPT-4: J0696 07/22/2016 TRIAMCINOLONE ACET I [place] NOS CPT-4: J3301 02/05/2015 Vital Signs Date Vital 08/16/2018 Blood Pressure 1: 104/66 Code: 8480-6 BMI: 32.3 Code: 24074-7 Heart Rate 1: 94 bpm Height: 5'7" SpO2: 96% Weight: 206 lbs 07/11/2018 Blood Pressure 1: 102/68 Code: 8480-6 BMI: 34.5 Code: 86559-4 Heart Rate 1: 101 bpm Height: 5'7" SpO2: 98% Weight: 220 lbs 03/24/2018 Blood Pressure 1: 130/72 Code: 8480-6 BMI: 33.4 Code: 41140-6 Heart Rate 1: 82 bpm Height: 5'7" SpO2: 93% Weight: 213 lbs 11/18/2017 Blood Pressure 1: 128/70 Code: 8480-6 BMI: 33.6 Code: 82013-2 Heart Rate 1: 98 bpm Height: 5'7" SpO2: 97% Weight: 214 lbs 8 oz 09/30/2017 Blood Pressure 1: 100/50 Code: 8480-6 BMI: 34.0 Code: 19939-6 Heart Rate 1: 66 bpm Height: 5'7" SpO2: 96% Weight: 217 lbs 08/17/2017 Blood Pressure 1: 104/60 Code: 8480-6 BMI: 33.7 Code: 26050-9 Heart Rate 1: 99 bpm Height: 5'7" SpO2: 97% Weight: 215 lbs 06/15/2017 Blood Pressure 1: 120/64 Code: 8480-6 BMI: 33.5 Code: 27106-1 Heart Rate 1: 91 bpm Height: 5'7" SpO2: 94% Weight: 214 lbs 04/01/2017 Blood Pressure 1: 110/68 Code: 8480-6 BMI: 154.4 Code: 79207-5 Heart Rate 1: 66 bpm Height: 2'7" SpO2: 95% Weight: 211 lbs 03/16/2017 Blood Pressure 1: 130/72 Code: 8480-6 BMI: 33.0 Code: 73529-5 Heart Rate 1: 95 bpm Height: 5'7" SpO2: 97% Weight: 211 lbs 02/09/2017 Blood Pressure 1: 120/70 Code: 8480-6 BMI: 32.9 Code: 97297-1 Heart Rate 1: 78 bpm Height: 5'7" SpO2: 96% Weight: 210 lbs 10/13/2016 Blood Pressure 1: 118/76 Code: 8480-6 BMI: 32.6 Code: 03313-9 Heart Rate 1: 97 bpm Height: 5'7" SpO2: 98% Weight: 208 lbs 07/31/2016 Blood Pressure 1: 110/64 Code: 8480-6 BMI: 32.1 Code: 09754-4 Heart Rate 1: 79 bpm Height: 5'7" SpO2: 94% Weight: 205 lbs 07/22/2016 Blood Pressure 1: 108/74 Code: 8480-6 BMI: 32.1 Code: 51690-6 Heart Rate 1: 71 bpm Height: 5'7" SpO2: 97% Temperature: 36.9 (C ) / 98.4 (F) Weight: 205 lbs 05/01/2016 Blood Pressure 1: 120/72 Code: 8480-6 BMI: 32.7 Code: 93942-9 Heart Rate 1: 75 bpm Height: 5'7" SpO2: 94% Weight: 209 lbs 04/06/2016 Blood Pressure 1: 106/62 Code: 8480-6 BMI: 32.7 Code: 06900-3 Heart Rate 1: 83 bpm Height: 5'7" SpO2: 97% Weight: 209 lbs 03/06/2016 Blood Pressure 1: 112/68 Code: 8480-6 BMI: 32.7 Code: 93890-4 Heart Rate 1: 90 bpm Height: 5'7" SpO2: 97% Weight: 209 lbs 03/03/2016 Blood Pressure 1: 120/62 Code: 8480-6 BMI: 32.7 Code: 56099-4 Heart Rate 1: 92 bpm Height: 5'7" SpO2: 98% Weight: 209 lbs 02/07/2016 Blood Pressure 1: 110/64 Code: 8480-6 BMI: 32.7 Code: 52941-7 Heart Rate 1: 87 bpm Height: 5'7" SpO2: 97% Weight: 209 lbs 12/13/2015 Blood Pressure 1: 11064 Code: 8480-6 BMI: 33.5 Code: 45756-9 Heart Rate 1: 90 bpm Height: 5'7" SpO2: 97% Weight: 214 lbs 12/03/2015 Blood Pressure 1: 132/76 Code: 8480-6 BMI: 33.4 Code: 32057-3 Heart Rate 1: 82 bpm Height: 5'7" SpO2: 99% Weight: 213 lbs 11/20/2015 Blood Pressure 1: 108/68 Code: 8480-6 BMI: 32.4 Code: 56672-4 Heart Rate 1: 77 bpm Height: 5'7" SpO2: 97% Weight: 207 lbs 09/17/2015 Blood Pressure 1: 122/76 Code: 8480-6 BMI: 33.0 Code: 67281-1 Heart Rate 1: 91 bpm Height: 5'7" SpO2: 97% Weight: 211 lbs 05/31/2015 Blood Pressure 1: 128/82 Code: 8480-6 BMI: 33.4 Code: 69447-5 Heart Rate 1: 98 bpm Height: 5'7" SpO2: 99% Weight: 213 lbs 02/05/2015 Blood Pressure 1: 128/80 Code: 8480-6 BMI: 32.6 Code: 08764-8 Heart Rate 1: 86 bpm Height: 5'7" SpO2: 97% Weight: 208 lbs 11/20/2014 Blood Pressure 1: 128/90 Code: 8480-6 BMI: 30.9 Code: 36003-4 Heart Rate 1: 94 bpm Height: 5'7" [...] ongoing 11/20/2015 None Hospital Follow Up _ [facility]: fall 09/17/2015 None Hospital Follow Up [...] Findings Denies fever 05/31/2015 None hypothyroid 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 P ATIENT, LEVEL IV Diagnosis: Essential (primary) hypertension[ICD10: I10] Diagnosis: Atrophy of thyroid (acquired)[ICD10: E03.4] Diagnosis: Sebaceous cyst[ICD10: L72.3] Diagnosis: Chronic atrial fibrillation[ICD10: I48.2] Diagnosis: USP (current) use of anticoagulants[ICD10: Z79.01] Valerie Pisano MD, [facility] CPT-4: 35205 08/16/2018 ([id number]) 60883 EST. P ATIENT, LEVEL IV Diagnosis: Atrophy of thyroid (acquired)[ICD10: E03.4] Diagnosis: Essential (primary) hypertension[ICD10: I10] Diagnosis: Other fatigue[ICD10: R53.83] Diagnosis: Localized edema[ICD10: R60.0] Valerie Pisano MD, [facility] CPT-4: 98684 07/11/2018 ([id number]) 10454 EST. P ATIENT, LEVEL IV Diagnosis: Essential (primary) hypertension[ICD10: I10] Diagnosis: Atrophy of thyroid (acquired)[ICD10: E03.4] Diagnosis: Chronic atrial fibrillation[ICD10: I48.2] Valerie Pisano MD, [facility] CPT-4: 70412 03/24/2018 ([id number]) 62647 EST. P ATIENT, LEVEL IV Diagnosis: Essential (primary) hypertension[ICD10: I10] Diagnosis: Atrophy of thyroid (acquired)[ICD10: E03.4] Diagnosis: Chronic atrial fibrillation[ICD10: I48.2] Valerie Pisano MD, [facility] CPT-4: 21407 11/18/2017 12742 EST. PATIENT, LEVEL IV Diagnosis: Localized edema[ICD10: R60.0] Roxie Pisano MD, [facility] CPT-4: 67434 09/30/2017 ([id number]) [id number] EST. P ATIENT, LEVEL III Diagnosis: Essential (primary) hypertension[ICD10: I10] Valerie Pisano MD, [facility] CPT-4: 44486 08/17/2017 ([id number]) 89833 EST. P ATIENT, LEVEL IV Diagnosis: Essential (primary) hypertension[ICD10: I10] Diagnosis: Atrophy of thyroid (acquired)[ICD10: E03.4] Diagnosis: Chronic atrial fibrillation[ICD10: I48.2] Diagnosis: Cervicalgia[ICD10: M54.2] Diagnosis: Other muscle spasm[ICD10: M62.838] Valerie Pisano MD, [facility] CPT- 4: 60290 06/15/2017 [id number] EST. PATIENT, LEVEL III Diagnosis: Laceration without foreign body of other finger without damage to nail, initial encounter[ICD10: S61.218A] Roxie Pisano MD, [facility] CPT-4: 69353 04/01/2017 ([id number]) 25114 EST. 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 P ATIENT, LEVEL IV Diagnosis: Chronic atrial fibrillation[ICD10: I48.2] Diagnosis: Essential (primary) hypertension[ICD10: I10] Diagnosis: Other fatigue[ICD10: R53.83] Diagnosis: USP (current) use of anticoagulants[ICD10: Z79.01] Diagnosis: Atrophy of thyroid (acquired)[ICD10: E03.4] Valerie Pisano MD, C CPT-4: 22046 02/09/2017 ([id number]) 55604 EST. P ATIENT, LEVEL IV Diagnosis: Essential (primary) hypertension[ICD10: I10] Diagnosis: Chronic atrial fibrillation[ICD10: I48.2] Diagnosis: Tinea corporis[ICD10: B35.4] Diagnosis: USP (current) use of anticoagulants[ICD10: Z79.01] Diagnosis: Other skin changes[ICD10: R23.8] Valerie Pisano MD, [facility] CPT-4: 92914 10/13/2016 10133 EST. PATIENT, LEVEL III Diagnosis: Other acute sinusitis[ICD10: J01.80] Diagnosis: Other allergic rhinitis[ICD10: J30.89] Roxie Pisano MD, [facility] CPT-4: 71374 07/31/2016 ([id number]) 66916 EST. P ATIENT, LEVEL III Diagnosis: Acute recurrent maxillary sinusitis[ICD10: J01.01] Valerie Pisano MD, [facility] CPT-4: 94166 07/22/2016 16078 EST. PATIENT, LEVEL IV Diagnosis: Essential (primary) hypertension[ICD10: I10] Diagnosis: Other allergic rhinitis[ICD10: J30.89] Diagnosis: Localized edema[ICD10: R60.0] Roxie Pisano MD, [facility] CPT-4: 96752 05/01/2016 87426 EST. PATIENT, LEVEL III Diagnosis: Cellulitis of left lower limb[ICD10: L03.116] Diagnosis: Localized edema[ICD10: R60.0] Roxie Pisano MD, [facility] CPT-4: 24195 04/06/2016 ([id number]) Miscellaneou s no charge Diagnosis: Cellulitis of left lower limb[ICD10: L03.116] Diagnosis: Localized edema[ICD10: R60.0] Roxie Pisano MD, [facility] CPT-4: 64123 03/10/2016 ([id number]) Miscellaneou s no charge Diagnosis: Cellulitis of left lower limb[ICD10: L03.116] Roxie Pisano MD, [facility] CPT-4: 82831 03/06/2016 37228 EST. PATIENT, LEVEL IV Diagnosis: Cellulitis of left lower limb[ICD10: L03.116] Diagnosis: Localized edema[ICD10: R60.0] Roxie Pisano MD, [facility] CPT-4: 49127 03/03/2016 ([id number]) 30260 EST. 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 P ATIENT, LEVEL III Diagnosis: Iliotibial band syndrome, right leg[ICD10: M76.31] Diagnosis: Localized edema[ICD10: R60.0] Brielle Pisano MD, [facility] CPT- 4: 56976 12/13/2015 ([id number]) 24059 EST. P ATIENT, LEVEL III Diagnosis: Localized edema[ICD10: R60.0] Diagnosis: Essential (primary) hypertension[ICD10: I10] Brielle Pisano MD, [facility] CPT-4: 80682 12/03/2015 ([id number]) 54915 EST. 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 P ATIENT, LEVEL IV Diagnosis: Localized edema[ICD10: R60.0] Diagnosis: Other specified hypothyroidism[ICD10: E03.8] Diagnosis: Essential (primary) hypertension[ICD10: I10] Brielle Pisano MD, [facility] CPT-4: 30191 05/31/2015 ([id number]) 12788 EST. P ATIENT, LEVEL III Diagnosis: ALLERGIC RHINITIS[ICD9: 477.9] Diagnosis: ESSENTIAL HYPERTENSION[ICD9: 401.9] Brielle Pisano MD, [facility] CPT-4: 56318 02/05/2015 ([id number]) [facility] - LEVEL 4 Diagnosis: ESSENTIAL HYPERTENSION[ICD9: 401.9] Diagnosis: HYPOTHYROIDISM[ICD9: 244.9] Diagnosis: ACTINIC KERATOSIS[ICD9: 702.0] [facility] CPT-4: 90592 11/20/2014 Plan of Care Planned Activity Notes [...] Pisano WPtel: [facility] (15 min) Moderate 08/16/2018 Patient Education: Patient Medication Summary Completed 08/16/2018 Patient Education: Hypertension Completed 08/16/2018 Patient Education: Patient Medication Summary Completed 07/29/2018 Appointment: Brielle Cavazos WPtel: [facility]5 [phone] (15 min) Moderate 07/12/2018 Visit Plan: [...] daily. 07/11/2018 Appointment: Valerie iPsano WPtel: [phone] [facility] (15 min) Moderate 07/11/2018 Patient Education: Patient [...] given today. 03/24/2018 Appointment: [phone] (15 min) Moderate 03/24/2018 Patient [...] control. 11/18/2017 Appointment: Valerie Pisano WPtel: [phone] [facility]6[address] (15 min) Moderate 11/18/2017 Patient Education: Patient Medication Summary Completed 11/18/2017 Referral: Via [facility] Wound Care WPtel: [address] Pt notified at appointment Appointment Confirmed [...] Cazares WPtel[facility] (30 min) Complex 09/30/2017 Patient Education: Patient Medication Summary Completed 09/30/2017 Care Plan: Referral Order SNOMED-CT : [id number] Pending 09/30/2017 Visit Plan: Hypertension - well [...] this time. 08/17/2017 Appointment: Valerie Pisano WPtel: [facility] [place] (15 min) Moderate 08/17/2017 Patient Education: [...] neck muscles. allergies - kenalog 40mg im [employer] squibb - lot # [id number] expires september 2018 06/15/2017 Visit Plan: Hypertension [...] neck muscles. 06/15/2017 Appointment: Valerie Pisano WPtel: [facility] [place] (15 min) Moderate 06/15/2017 Patient Education: Patient Medication Summary Completed 06/15/2017 Care Plan: Referral Order SNOMED-CT : [id number] Pending 06/15/2017 Appointment: Nurse Visit 04/05/2017 Appointment: [...] 04/01/2017 Appointment: Roxie Cazares WPtel: [phone] [facility] (15 min) Moderate 04/01/2017 Patient Education: Patient [...] Valerie Pisano WPtel: [phone] [facility] (15 min) Moderate 03/16/2017 Patient Education: Patient [...] Valerie Pisano WPtel: [phone] [facility] (15 min) Moderate 02/09/2017 Patient Education: Patient [...] nystatin 10/13/2016 Appointment: [facility]el[phone] (15 min) Moderate 10/13/2016 Patient Education: Patient Medication Summary Completed 10/13/2016 Patient Education: Obesity Completed 10/13/2016 Patient Education: Hypertension Completed 10/13/2016 Care Plan: Urine Culture Pending 08/31/2016 Appointment: Roxie Cazares WPtel: [facility]5 [facility]66[facility] Lab Draw 08/27/2016 Appointment: Nurse Visit 08/26/2016 [...] Cavazos WPtel: [phone] (30 min) Complex 07/31/2016 Patient Education: Patient Medication Summary Completed 07/31/2016 Patient Education: Obesity Completed 07/31/2016 Visit Plan: Sinusitis - Pt has acut e infection - pain in face, maxillary region, Pt informed to use decongestant, RX given to patient, sinus rinses also recommended. Call if symptoms do not show improvement. 07/22/2016 Appointment: Valerie Pisano WPtel: [facility]9 [facility] (15 min) Moderate 07/22/2016 Patient [...] peripheral edema. 05/01/2016 Appointment: Brielle Cavazos WPtel: [phone] (30 min) Complex 05/01/2016 Patient [...] peripheral edema. 04/06/2016 Appointment: Roxie Cazares WPtel: [facility] (30 min) Complex 04/06/2016 Patient Education: Patient Medication Summary Completed 04/06/2016 Patient Education: Obesity Completed 04/06/2016 Visit Plan: left foot - improved - pt finished with antibiotics - continue to monitor - notify clinic with any concerns. Repeat INR today. 03/10/2016 Appointment: Brielle Cavazos WPtel: [facility] [place] [phone] (30 min) Complex 03/10/2016 Patient Education: Patient Medication Summary Completed 03/10/2016 Visit Plan: Cellulitis - continue w ith oral antibiotics as previously directed, return to clinic as previously directed, call for acute change in symptoms, worsening redness, warmth, discharge. 03/06/2016 Appointment: Brielle Cavazos WPtel: [phone] (15 min) Moderate 03/06/2016 Patient Education: Patient Medication Summary Completed 03/06/2016 Patient Education: Obesity Completed 03/06/2016 Visit Plan: Cellulitis - continue w ith oral antibiotics as previously directed, return to clinic as previously directed, call for acute change in symptoms, worsening redness, warmth, discharge. 03/03/2016 Appointment: Brielle Cavazos WPtel: [address] [place], [place] [phone] (15 min) Moderate 03/03/2016 Patient Education: Patient [...] Cavazos WPtel: [phone] (30 min) Complex 02/07/2016 Patient Education: Patient Medication Summary Completed 02/07/2016 Patient Education: Obesity Completed 02/07/2016 Patient Education: Hypertension Completed 02/07/2016 Appointment: Brielle Cavazos WPtel: [phone] (30 min) Complex 02/04/2016 Visit Plan: [...] peripheral edema. 12/13/2015 Appointment: Brielle Cavazos WPtel: [phone] (15 min) Moderate 12/13/2015 Patient Education: [...] home. 12/03/2015 Appointment: Brielle Cavazos WPtel[phone] [place] (30 min) Complex 12/03/2015 Patient [...] Pisano WPtel: [facility] (15 min) Moderate 01/29/2015 Visit [...] Valerie Pisano WPtel: [phone] [facility] [place] (S) New Patient 11/20/2014 Patient Education: Patient Medication Summary Completed 11/20/2014 Patient Education: Hypertension Completed 11/20/2014 Patient Education: Patient Medication Summary Completed 10/19/2014 Referral: [facility] WPtel: Referral Appointment Requested Referral: [facility] Wound Care WPtel: [address] [id number] [place] Referral Appointment Confirmed Instructions Comment . [...] muscles. allergies - kenalog 40mg im [facility] [facility] squib[employer] - lot # [id number] expires september 2018 Check your PT INR on Wednesday or [...] the office. get blood work one w [place] before next appt - fasting labs Decrease [...]
--- NOTE | 2019-09-12 11:39 | Physical Therapy Evaluation ---
PT Evaluation-General Medical Diagnosis Admission Date Sep 12, 2019 at 09:19 Medical Diagnosis: cellulitis left LE Onset Date: Sep 08, 2019 Therapy Diagnosis Therapy Diagnosis: Impaired mobility Height/Weight Height (Feet): 5 Height (Inches): 7.00 Weight (Pounds): 209 Weight (Ounces): 0.0 Precautions Precautions/Isolations: Fall Prevention, Standard Precautions Weight Bear Status Full Weight Bearing Full Weight Bearing Referral Physician: Dr. Pisano Reason for Referral: Evaluation/Treatment Medical History Pertinent Medical History: Atrial Fib, CAD, Diverticulitis, GERD, HTN, PVD Current History Transfer to swing bed status Reviewed History: Yes Social History Home: Single Level Current Living Status: Other Family Entry Into Home: Level Entry PT Steps Into Home: 1 (threshold step) Prior Prior Level of Function SCALE: Activities may be completed with or without assistive devices. 6-Iihxkbbsdk-tgnxyuu completes the activity by him/herself with no assistance from a helper. 5-Set-up or Clean-up Assistance-helper sets up or cleans up; patient completes activity. [employer] assists only prior to or following the activity. 4-Supervision or Touching Assistance-helper provides verbal cues and/or touching/steadying and/or contact guard assistance as patient completes activity. Assistance may be provided throughout the activity or intermittently. 3-Partial/Moderate Assistance-helper does LESS THAN HALF the effort. [employer] lifts, holds or supports trunk or limbs, but provides less than half the effort. 2-Substantial/Maximal Assistance-helper does MORE THAN HALF the effort. [employer] lifts or holds trunk or limbs and provides more than half the effort. 3-Tjpfkjgds-krwknb does ALL the effort. Patient does none of the effort to complete the activity. Or, the assistance of 2 or more helpers is required for the patient to complete the activity. If activity was not attempted, code reason: 7-Patient Refused. 9-Not Applicable-not attempted and the patient did not perform the activity before the current illness, exacerbation or injury. 10-Not Attempted due to Environmental Limitations-(lack of equipment, weather restraints, etc.). 88-Not Attempted due to Medical Conditions or Safety Concerns. Bed Mobility: 6 Transfers (B,C,W/C): 6 Gait: 6 Stairs: 6 Indoor Mobility (Ambulation): Independent Stairs: Needed Some Help Prior Devices Use: Walker PT Evaluation-Current Subjective Patient only has pain when she bears weight through r hip when sitting. 09/04 Pt/Family Goals return to home Objective Patient Orientation: Person, Place, Time, Eyes Open Attachments: Oxygen (2L) ROM/Strength ROM Upper Extremities WNL ROM Lower Extremities WNL Strength Upper Extremities WNL Strength Lower Extremities 4/5 grossly bilateral LE Integumentary/Posture Bowel Incontinence: No Bladder Incontinence: No Posture verbal cues needed when walking Neuromuscular (Tone, Coordination, Reflexes) WNL Sensory Vision: Functional Hearing: Functional Hand Dominance: Right Sensation Right Upper Extremit: Intact Sensation Left Upper Extremity: Intact Sensation Right Lower Extremit: Intact Sensation Left Lower Extremity: Intact Transfers Roll Left to Right (QC): 4 (SBA) Sit to Lying (QC): 4 (SBA) Lying to Sitting/Side of Bed(Q: 4 (SBA) Sit to Stand (QC): 4 (CGA) Chair/Xsk-wa-Xmtqm Xfer(QC): 4 (CGA) Toilet Transfer: 4 Car Transfer (QC): 10 Gait Does the Patient Walk?: Yes Mode of Locomotion: Walk Walk 10 feet (QC): 4 (CGA) Walk 50 ft with 2 Turns(QC): 4 (CGA) Walk 150 ft (QC): 4 (CGA) Walking 10ft/uneven surface-QC: 88 Distance: 350 Gait Assistive Device: FWW Comments/Gait Description Patient needs verbal cues for posture and to stay inside of RW. Patient likes to swerve with RW when walking due to not paying attention to where she is going and needs redirections. Wheelchair Training Does the Pt Use a Wheelchair?: No Stairs 1 Step (curb) (QC): 88 4 Steps (QC): 88 12 Steps (QC): 88 Balance Sitting Static: Normal Sitting Dynamic: Good Standing Static: Good Standing Dynamic: Good Picking up an Object (QC): 5 Treatment Patient was able to put on her own socks while sitting EOB and performed gait training and bed mobility exercises. Assessment/Needs Patient requires time to complete therapy activities. Patient is motivated and has to be reminded to remain focus on activities for safety reasons.. Rehab Potential: Fair PT Short Term Goals Short Term Goals Time Frame: Sep 22, 2019 Roll Left & Right: 5 Sit to lyin Lying to sitting on side of be: 5 Sit to stand: 5 Chair/aox-uy-zqebe transfer: 4 (SBA) Toilet transfer: 4 (SBA) Car transfer: 4 Walk 10 feet: 4 (SBA) Walk 50 feet with two turns: 4 (SBA) Walk 150 feet: 4 (SBA) Walking 10ft on uneven surface: 3 PT Group Home Goals Group Home Goals PT Group Home Goals Time Frame: Oct 06, 2019 Roll Left & Right (QC): 5 Sit to Lying (QC): 5 Lying-Sitting on Side/Bed(QC): 5 Sit to Stand (QC): 5 Chair/Xsx-cl-Hevqe Xfer(QC): 5 Toilet Transfer (QC): 5 Car Transfer (QC): 5 Does the Patient Walk: Yes Walk 10 feet (QC): 5 Walk 50ft with 2 Turns (QC): 5 Walk 150 ft (QC): 5 Walking 10ft on Uneven Surface: 5 PT Plan Problem List Problem List: Activity Tolerance, Functional Strength, Safety, Balance, Gait, Transfer, Bed Mobility Treatment/Plan Treatment Plan: Continue Plan of Care Treatment Plan: Bed Mobility, Concurrent Therapy, Education, Functional Activity [place], Functional Strength, Group Therapy, Gait, Therapeutic Exercise, Transfers Treatment Duration: Sep 22, 2019 Frequency: 11 times per week Estimated Hrs Per Day: .5 hour per day Patient and/or Family Agrees t: Yes Safety Risks/Education Patient Education: Gait Training, Instructions to Caregiver, Disease Process, Safety Issues Teaching Recipient: Patient, Family Teaching Methods: Demonstration, Discussion, Audiovisual Response to Teaching: Verbalize Understanding, Return Demonstration, Reinforcement Needed Time/GCodes Time In: 1056 Time Out: 1120 Total Billed Treatment Time: 24 Total Billed Treatment 1 visit EVL 10 GT 14 JOSEPH GLASS PT Sep 12, 2019 11:39
--- OUTSIDE RECORDS SUMMARY | 2019-09-12 11:40 | XMS REPORT | CCD ---
Author Author Clara Pisano Organization [facility] Address [address] [place] [address] Phone Care Team Providers Care Director Of Services Name Role Phone PP Unavailable CCM Unavailable Summary Purpose Interface Exchange Insurance Providers Payer name Policy type / Coverage type Covered constitution party ID Effective Begin Date Effective End Date WPS Medicare Part B Medicare Part B [id number] 2018 Unknown [employer] Medicare Part B [id number] Unknown Family history Sister Diagnosis Age At Onset defect Unknown Breast cancer Unknown Daughter Diagnosis Age At Onset Breast cancer Unknown Mother Diagnosis Age At Onset No Family Disease Entered N/A Social History Social History Element Codes Description Effective Dates Marital status Unknown M arried Lane 11/20/2014 Number of children Unknown 6 11/20/2014 Employment Unknown Retir ed 11/20/[address]: 6186232 Quit over 10 years ago 1963 11/20/2014 [...] ICD-9: 401.9 ICD-10: I10 Active 04/30/2016 Unknown 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 (current) use of anticoagulants ICD-9: V58.61 ICD-10: [...] Unknown HYPOTHYROIDISM ICD-9: 244.9 Active 11/19/2014 Unknown [facility] current us e of anticoagulant therapy ICD-9: V58.61 Active 10/19/2014 Unknown Problems Condition Codes Effectiv e Dates Condition Status Atrophy of thyroid ( acquired) ICD-9: 244.8 ICD-10: E03.4 02/09/2017 Active Chronic atrial fibri llation ICD-9: 427.31 ICD-10: I48.2 02/06/2016 Active Essential (primary) hypertension ICD-9: 401.9 ICD-10: I10 04/30/2016 Active [facility] (current) use of anticoagulants ICD-9: V58.61 ICD-10: [...] 11/19/2014 Active HYPOTHYROIDISM ICD-9: 244.9 11/19/2014 Active [facility] current us e of anticoagulant therapy ICD-9: V58.61 10/19/2014 Active Medications Medication Codes Instruc tions Start Date Stop Date Sta Fill Instructions Coumadin 4 mg tablet RxNorm: 343644 1 Tablet(s) PO daily 08/16/2018 08/10/2019 Active this is an update to her RX - she will l et you know when she needs refill triamcinolone aceton sreekanth 0.025 % topical cream RxNorm: 9494927 1 Application TOP QI D 08/16/2018 No Stop Date Active levothyroxine 125 mc g tablet RxNorm: 256086 TAKE ONE TABLET BY MO [facility] DAILY ON WEDNESDAY, WED, AND WEDNESDAY, AND 1/2 TABLET ON , , WED AND WEDNESDAY. TAKE ON AN EMPTY STOMACH 08/04/2018 04/30/2019 Active meclizine 25 mg tablet RxNorm: 085149 1 Tablet(s) PO TID as needed Dizziness 07/22/2018 No Stop Date Active meclizine 25 mg tablet RxNorm: 298775 1 Tablet(s) PO TID as needed Dizziness 07/19/2018 07/21/2018 In active furosemide 40 mg tablet RxNorm: 271935 1 Tablet(s) BID take 1.5 tabs twice a da y x 7 days then 1 pill daily thereafter 07/11/2018 02/05/2019 Active Coumadin 4 mg tablet RxNorm: 012143 1 Tablet(s) PO daily except 1.5 pills on WEDNESDAY AND Wednesday07/11/2018 08/15/2018 Inactive this is an update to her RX - she will let you know when she needs refill warfarin 5 mg tablet RxNorm: 047572 Tablet(s) TAKE ONE TABLET BY MOUTH DAILY EXCEPT / TAKE 4 MG 04/06/2018 08/22/2019 Active diltiazem 60 mg tablet RxNorm: 335341 1/2 Tablet(s) PO QID 03/24/2018 No Stop Date Active levothyroxine 125 mc g tablet RxNorm: 924401 TAKE ONE TABLET BY [facility] DAILY ON WEDNESDAY, WED, AND WEDNESDAY, AND 1/2 TABLET ON , , WED AND WEDNESDAY. TAKE ON AN EMPTY STOMACH 02/02/2018 07/31/2018 Inactive Coumadin 4 mg tablet RxNorm: 275573 TAKE ONE TABLET BY MOUTH DAILY ON AND Wednesday10/14/2017 07/10/2018 Inactive nystatin 100,000 uni t/gram topical cream RxNorm: 928369 1 Application TOP TID 08/17/2017 No Stop Date Active Voltaren 1 % topical gel RxNorm: 395604 2 Gram(s) TOP TID luiz ly to shoulder and neck 08/17/2017 No Stop Date Active triamcinolone aceton sreekanth 0.025 % topical cream RxNorm: 8853253 1 Application TOP BI D 08/17/2017 08/15/2018 In active levothyroxine 125 mc g tablet RxNorm: 437799 1 Tablet(s) UD 1 pill wed/wed/wed, 1/2 pill //wed/wed take ON AN EMPTY STOMACH 08/05/2017 02/01/2018 Inactive Coumadin 4 mg tablet RxNorm: 925570 1 Tablet(s) PO Wed/07/29/2017 10/13/2017 Inactive warfarin 5 mg tablet RxNorm: 842974 TAKE 1 AND 1/2 TABLETS BY MOUTH ON AND WEDNESDAY. TAKE ONLY 1 TABLET BY MOUTH ALL OTHER DAYS OF THE WEEK 07/12/2017 04/05/2018 In active furosemide 40 mg tablet RxNorm: 141049 Tablet(s) BID TAKE ONE TABLET BY MOUTH D AILY 06/15/2017 07/10/2018 Inactive Voltaren 1 % topical gel RxNorm: 265502 2 Gram(s) TOP TID luiz ly to shoulder and neck 06/15/2017 08/16/2017 Inactive Keflex 500 mg capsule RxNorm: 877648 1 Capsule(s) PO TID 04/01/2017 04/07/2017 Inactive furosemide 40 mg tablet RxNorm: 477955 TAKE ONE TABLET BY MOUTH DAILY 03/18/2017 06/14/2017 In active Claritin-D 12 Hour 5 mg-120 mg tablet,extended release RxNorm: 5204275 1 Tablet(s) PO BID 03/16/2017 05/14/2017 Inactive Lipitor 20 mg tablet RxNorm: 231487 1 Tablet(s) PO daily 02/09/2017 03/10/2017 Inactive lisinopril 2.5 mg ta blet RxNorm: 983167 1 Tablet(s) PO daily 02/09/2017 03/10/2017 Inactive Nasonex 50 mcg/actua tion Sparks RxNorm: 2626765 1 Sparks NASAL BID 02/09/2017 09/06/2017 Inactive levothyroxine 125 mc g tablet RxNorm: 827319 1 Tablet(s) UD 1 pill wed/wed/wed, 1/2 pill //wed/sun take ON AN EMPTY STOMACH 02/09/2017 08/04/2017 Inactive fluorouracil 5 % top ical cream RxNorm: 688125 1 Application TOP BID 02/09/2017 02/18/2017 Inactive potassium chloride E R 20 mEq tablet,extended release RxNorm: 194790 Tablet(s) TAKE ONE TABLET BY MOUTH DAILY 02/08/2017 02/02/2018 Inactive warfarin 5 mg tablet RxNorm: 050820 TAKE 1 AND 1/2 TABLETS BY MOUTH ON AND WEDNESDAY. TAKE ONLY 1 TABLET BY MOUTH ALL OTHER DAYS OF THE WEEK 12/14/2016 05/30/2017 In active potassium chloride E R 20 mEq tablet,extended release RxNorm: 990716 TAKE ONE TABLET BY MOUTH DAILY 10/29/2016 01/26/2017 Inactive warfarin 5 mg tablet RxNorm: 147319 TAKE 1 AND 1/2 TABLETS BY MOUTH ON AND WEDNESDAY. TAKE ONLY 1 TABLET BY MOUTH ALL OTHER DAYS OF THE WEEK 10/27/2016 12/13/2016 In active nystatin 100,000 uni t/gram topical cream RxNorm: 510047 1 Application TOP TID 10/13/2016 08/16/2017 In active nitrofurantoin 50 mg capsule RxNorm: 882693 1 Capsule(s) PO BID 09/04/2016 09/03/2016 Inactive nitrofurantoin macro crystal 50 mg capsule RxNorm: 620562 1 Capsule(s) PO BID 09/04/2016 09/10/2016 In active Cipro 500 mg tablet RxNorm: 108350 1 Tablet(s) PO BID 08/26/2016 10/12/2016 Inactive Zyrtec 10 mg tablet RxNorm: 2850754 1 Tablet(s) PO daily 07/31/2016 08/29/2016 Inactive prednisone 20 mg tablet RxNorm: 417452 2 Tablet(s) PO daily 07/31/2016 08/02/2016 Inactive Kenalog 40 mg/mL zohra pension for injection RxNorm: 9012812 Milliliter(s) Inj 07/22/2016 07/22/2016 In active ceftriaxone 500 mg s olution for injection RxNorm: 2888870 Inj 07/22/2016 07/22/2016 Inactive Flonase Allergy Reli ef 50 mcg/actuation nasal spray,suspension RxNorm: 6424335 1 [place]ks NASAL BID 07/22/2016 08/20/2016 Inactive azithromycin 250 mg tablet RxNorm: 977894 2 Tablet(s) PO on day #1, then 1 pill daily x 4 days 07/22/2016 10/12/2016 Inactive warfarin 5 mg tablet RxNorm: 763987 TAKE 1 AND 1/2 TABLETS BY MOUTH ON AND WEDNESDAY. TAKE ONLY 1 TABLET BY MOUTH ALL OTHER DAYS OF THE WEEK 07/09/2016 09/30/2016 In active levothyroxine 125 mc g tablet RxNorm: 746436 Tablet(s) TAKE ONE TA BLET BY MOUTH DAILY ON AN EMPTY STOMACH 06/23/2016 02/08/2017 Inactive levothyroxine 125 mc g tablet RxNorm: 890962 TAKE ONE TABLET BY MO [facility] DAILY ON AN EMPTY STOMACH 06/23/2016 06/22/2016 Inactive levothyroxine 125 mc g tablet RxNorm: 255543 TAKE ONE TABLET BY MO UTH DAILY ON AN EMPTY STOMACH 06/23/2016 08/04/2017 Inactive cetirizine 10 mg tablet RxNorm: 4481434 TAKE ONE TABLET BY MOUTH DAILY 06/16/2016 10/13/2016 In active furosemide 40 mg tablet RxNorm: 998644 Tablet(s) TAKE ONE TABLET BY MOUTH DAILY 06/05/2016 12/01/2016 In active cetirizine 10 mg tablet RxNorm: 2974008 1 Tablet(s) PO daily 05/01/2016 05/30/2016 Inactive Levaquin 250 mg tablet RxNorm: 141454 Tablet(s) PO 2 pills day one and 1 pill day 2-7 04/06/2016 07/21/2016 Inactive warfarin 5 mg tablet RxNorm: 203206 Tablet(s) 1/2 TABLETS BY MOUTH ON AND WEDNESDAY. TAKE ONLY 1 TABLET BY MOUTH ALL OTHER DAYS OF THE WEEK 03/18/2016 07/07/2016 In active triamcinolone aceton sreekanth 0.025 % topical cream RxNorm: 5176381 1 Application TOP BI D 03/10/2016 08/16/2017 In active potassium chloride E R 20 mEq tablet,extended release RxNorm: 048282 1 Tablet(s) PO daily 03/04/2016 06/01/2016 Inactive Levaquin 250 mg tablet RxNorm: 579562 Tablet(s) PO 2 pills day one and 1 pill day 2-7 03/04/2016 04/05/2016 Inactive Levaquin 250 mg tablet RxNorm: 361553 Tablet(s) PO 2 pills day one and 1 pill day 2-7 03/03/2016 03/03/2016 Inactive potassium chloride E R 20 mEq tablet,extended release RxNorm: 946342 1 Tablet(s) PO daily 03/03/2016 03/03/2016 Inactive Cipro 500 mg tablet RxNorm: 511924 1 Tablet(s) PO BID 02/20/2016 07/21/2016 Inactive Cipro 500 mg tablet RxNorm: 148894 1 Tablet(s) PO BID 02/20/2016 02/19/2016 Inactive furosemide 40 mg tablet RxNorm: 819404 TAKE ONE TABLET BY MOUTH DAILY 01/27/2016 01/26/2016 In active warfarin 5 mg tablet RxNorm: 418672 TAKE 1 AND 1/2 TABLETS BY MOUTH ON AND WEDNESDAY. TAKE ONLY 1 TABLET BY MOUTH ALL OTHER DAYS OF THE WEEK 01/27/2016 01/26/2016 In active furosemide 40 mg tablet RxNorm: 366853 TAKE ONE TABLET BY MOUTH DAILY 01/27/2016 06/04/2016 In active warfarin 5 mg tablet RxNorm: 980809 TAKE 1 AND 1/2 TABLETS BY MOUTH ON AND WEDNESDAY. TAKE ONLY 1 TABLET BY MOUTH ALL OTHER DAYS OF THE WEEK 01/27/2016 03/17/2016 In active potassium chloride E R 20 mEq tablet,extended release RxNorm: 399333 1 Tablet(s) PO daily 11/20/2015 03/02/2016 Inactive furosemide 40 mg tablet RxNorm: 630622 TAKE ONE TABLET BY MOUTH DAILY 11/12/2015 01/26/2016 In active Zovirax 5 % topical cream RxNorm: 070062 TOP QID 0 09/24/2015 09/23/2015 Inactive Zovirax 5 % topical cream RxNorm: 977081 TOP QID 0 09/24/2015 11/19/2015 Inactive nystatin 100,000 uni t/gram topical cream RxNorm: 917338 1 Application TOP TID 09/17/2015 10/12/2016 In active warfarin 5 mg tablet RxNorm: 696054 TAKE 1 AND 1/2 TABLETS BY MOUTH ON AND WEDNESDAY. TAKE ONLY 1 TABLET BY MOUTH ALL OTHER DAYS OF THE WEEK 08/19/2015 01/05/2016 In active loratadine 10 mg tablet RxNorm: 510927 1 Tablet(s) PO daily 07/30/2015 07/23/2016 Inactive loratadine 10 mg tablet RxNorm: 486644 1 Tablet(s) PO daily 07/30/2015 07/29/2015 Inactive furosemide 40 mg tablet RxNorm: 592193 TAKE ONE TABLET BY MOUTH DAILY 06/24/2015 11/11/2015 In active levothyroxine 125 mc g tablet RxNorm: 663413 1 Tablet(s) PO daily 05/31/2015 05/24/2016 Inactive furosemide 40 mg tablet RxNorm: 001144 1 Tablet(s) PO daily 04/05/2015 06/23/2015 Inactive warfarin 5 mg tablet RxNorm: 130325 TAKE 1 AND 1/2 TABLETS BY MOUTH ON AND WEDNESDAY. TAKE ONLY 1 TABLET BY MOUTH ALL OTHER DAYS OF THE WEEK 02/12/2015 07/29/2015 In active Flonase Allergy Reli ef 50 mcg/actuation nasal spray,suspension RxNorm: 2 Sparks NASAL daily 02/05/2015 03/06/2015 Inactive Kenalog 40 mg/mL zohra pension for injection RxNorm: 2592472 Milliliter(s) Inj 02/05/2015 02/05/2015 In active warfarin 5 mg tablet RxNorm: 673536 Take 7.5mg (1 1/2 tablets) Wednesday and and 1 Tablet(s) PO (5mg) all other days 01/11/2015 02/09/2015 Inactive levothyroxine 125 mc g tablet RxNorm: 329873 1 Tablet(s) PO every other day 01/01/2015 05/30/2015 In active alternate with 150 levothyroxine 150 mc g tablet RxNorm: 154508 1 Tablet(s) PO every other day 01/01/2015 05/30/2015 In active alternate with 125 loratadine 10 mg tablet RxNorm: 794261 Tablet(s) PO as needed No Start Date Active Fish Oil 1,000 mg ca psule RxNorm: 1 Capsule(s) PO TID No Start Date Active magnesium 250 mg tablet RxNorm: 1 Tablet(s) PO daily No Start Date Active Vitamin D3 2,000 uni t tablet RxNorm: 374397 2 Tablet(s) PO daily No Start Date Active Fosamax 35 mg tablet RxNorm: 244406 1 Tablet(s) PO QW No Start Date Active levothyroxine 125 mc g tablet RxNorm: 336988 1 Tablet(s) PO daily No Start Date 12/31/2014 Inactive levothyroxine 150 mc g tablet RxNorm: 635050 1 Tablet(s) PO daily No Start Date 12/31/2014 Inactive diltiazem 60 mg tablet RxNorm: 268524 1 Tablet(s) PO QID No Start Date 03/23/2018 Inactive meclizine 25 mg tablet RxNorm: 319125 1 Tablet(s) PO TID as needed Dizziness No Start Date 07/18/2018 Inactive furosemide 40 mg tablet RxNorm: 956084 1 Tablet(s) PO daily No Start Date 04/04/2015 Inactive potassium chloride RxNorm: miscellaneous No Start Date 11/19/2015 Inactive Vitamin D2 oral RxNorm: 4018 oral No Start Date 05/31/2015 Inactive warfarin 5 mg tablet RxNorm: 446919 1 Tablet(s) PO daily No Start Date 01/10/2015 Inactive Coumadin 4 mg tablet RxNorm: 358142 1 Tablet(s) PO Wed/ No Start Date 07/28/2017 Inactive Medication Administered Medication Codes Instruc tions Start Date Status Kenalog 40 mg/mL suspension for injection RxNorm: 1032671 Milliliter 07/22/2016 No longer Active ceftriaxone 500 mg solution for injection RxNorm: 2519250 07/22/2016 No longer A ctive Kenalog 40 mg/mL suspension for injection RxNorm: 0558325 Milliliter 02/05/2015 No longer Active Immunizations Vaccine [...] (acquired) ICD-10 : E03.4 ICD-9: 244.8 08/16/2018 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 (current) use of anticoagulants ICD-10: Z79.01 ICD-9: [...] 244.9 11/20/2014 ACTINIC KERATOSIS ICD-9: 702.0 11/20/2014 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 current use of anticoagulant therapy ICD-9: V58.61 [...] Code Item Item Code Result Date Pt Ncz0616 PT 30.9 seconds 08/16/2018 Pt Hdh5217 INR 3.0 08/16/2018 Pt Uwy8035 Low Intensity - 1.5-2.0 08/16/2018 Pt Lfn3698 Mod intensity - 2.0-3.0 08/16/2018 Pt Rvt4569 Hi intensity - 3.0-4.0 08/16/2018 Pt Des7184 PT 29.5 seconds 08/01/2018 Pt Irn7085 INR 2.8 08/01/2018 Pt Wid7532 Low Intensity - 1.5-2.0 08/01/2018 Pt Pai1941 Mod intensity - 2.0-3.0 08/01/2018 Pt Rct6056 Hi intensity - 3.0-4.0 08/01/2018 Pt Sic5672 PT 24.2 seconds 07/25/2018 Pt Wgy4862 INR 2.2 07/25/2018 Pt Cql4699 Low Intensity - 1.5-2.0 07/25/2018 Pt Ecc6533 Mod intensity - 2.0-3.0 07/25/2018 Pt Rnl0322 Hi intensity - 3.0-4.0 07/25/2018 Pt Zsi5408 PT 38.6 seconds 07/19/2018 Pt Kuh2205 INR 4.0 07/19/2018 Pt Udb5783 Low Intensity - 1.5-2.0 07/19/2018 Pt Lji0229 Mod intensity - 2.0-3.0 07/19/2018 Pt Ksv9498 Hi intensity - 3.0-4.0 07/19/2018 Pt Hdh0505 PT 25.7 seconds 07/11/2018 Pt Oeo7924 INR 2.4 07/11/2018 Pt Toz5204 Low Intensity - 1.5-2.0 07/11/2018 Pt Yrf3213 Mod intensity - 2.0-3.0 07/11/2018 Pt Abc2115 Hi intensity - 3.0-4.0 07/11/2018 Pt Rgv5929 PT 18.5 seconds 07/08/2018 Pt Mws2814 INR 1.6 07/08/2018 Pt Rkf2846 Low Intensity - 1.5-2.0 07/08/2018 Pt Avb8541 Mod intensity - 2.0-3.0 07/08/2018 Pt Abp6440 Hi intensity - 3.0-4.0 07/08/2018 Pt Uad9908 PT 27.3 seconds 06/29/2018 Pt Zko0637 INR 2.6 06/29/2018 Pt Ubz9903 Low Intensity - 1.5-2.0 06/29/2018 Pt Ejz2310 Mod intensity - 2.0-3.0 06/29/2018 Pt Axt1287 Hi intensity - 3.0-4.0 06/29/2018 Pt Quu2648 PT 24.0 seconds 05/26/2018 Pt Kdl9498 INR 2.2 05/26/2018 Pt Cjb4329 Low Intensity - 1.5-2.0 05/26/2018 Pt Vdp9504 Mod intensity - 2.0-3.0 05/26/2018 Pt Cno6067 Hi intensity - 3.0-4.0 05/26/2018 Tsh Ord6 [...] 29.6 pg 03/25/2018 Cbc With Differential Ord2 [place]% 9.5 % 03/25/2018 Cbc With Differential Ord2 Eos% 3.6 % 03/25/2018 Cbc With Differential Ord2 MCHC 32.3 pg 03/25/2018 Cbc With Differential Ord2 Baso% 0.5 % 03/25/2018 Cbc With Differential Ord2 PLT 322 K/ul 03/25/2018 Cbc With Differential Ord2 Neut ABS# 5.44 K/ul 03/25/2018 Cbc With Differential Ord2 RDW 17.2 % 03/25/2018 Cbc With Differential Ord2 Lymph ABS# 2.19 K/ul 03/25/2018 Cbc With Differential Ord2 [place] ABS# 0.8 K/ul 03/25/2018 Cbc With Differential Ord2 Eos ABS# 0.3 K/ul 03/25/2018 Cbc With Differential Ord2 Baso ABS# 0.0 K/ul 03/25/2018 Lipid Ord30 CHOL 156 mg/dL 03/25/2018 Lipid Ord30 HDL 52.0 mg/dl 03/25/2018 Lipid Ord30 TRIG 98 mg/dL 03/25/2018 Lipid Ord30 LDL 84 mg/dL 03/25/2018 Lipid Ord30 C/HDL 3.0 Ratio 03/25/2018 Free T4 Bow078 FREE T4 1.73 ng/dL 03/25/2018 Comp Metabolic Mfb142 NA 143 mEq/L 03/25/2018 Comp Metabolic Vzx123 K 4.6 mEq/L 03/25/2018 Comp Metabolic Fhw197 CL 108 mEq/L 03/25/2018 Comp Metabolic Brw991 CO2 26.0 mEq/L 03/25/2018 Comp Metabolic Bls913 AN ION GAP 14 03/25/2018 Comp Metabolic Bbo412 GL UCOSE 87 mg/dL 03/25/2018 Comp Metabolic Zad689 Cr eat 1.2 mg/dL 03/25/2018 Comp Metabolic Nts282 eG FR 48 ml/min/1.73m2 03/25 Comp Metabolic Idg994 BUN 18 mg/dL 03/25/2018 Comp Metabolic Oft149 B/ C Ratio 15.5 Ratio 03/25/2018 Comp Metabolic Vee505 CA LCIUM 9.1 mg/dL 03/25/2018 Comp Metabolic Gmj373 AL K PHOS 58 U/L 03/25/2018 Comp Metabolic Adg097 T(SGOT) 21 U/L 03/25/2018 Comp Metabolic Pte266 AL T(SGPT) 13 U/L 03/25/2018 Comp Metabolic Mmr668 BI LI T 0.7 mg/dL 03/25/2018 Comp Metabolic Byi571 AL BUMIN 3.2 g/dL 03/25/2018 Comp Metabolic Qdu971 TP RO 5.5 g/dL 03/25/2018 Comp Metabolic Jpx323 GL OB 2.3 g/dL 03/25/2018 Comp Metabolic Ebx544 A/ G Ratio 1.4 Ratio 03/25/2018 Comp Metabolic Spb430 Os mo 286 mOsmo 03/25/2018 Pt Ttf2626 PT 29.0 seconds 03/22/2018 Pt Iix7114 INR 2.7 03/22/2018 Pt Jqb3535 Low Intensity - 1.5-2.0 03/22/2018 Pt Iyu2448 Mod intensity - 2.0-3.0 03/22/2018 Pt Gvm1391 Hi intensity - 3.0-4.0 03/22/2018 Pt Ctc6000 PT 27.1 seconds 02/25/2018 Pt Huk4086 INR 2.5 02/25/2018 Pt Bde0818 Low Intensity - 1.5-2.0 02/25/2018 Pt Jye5051 Mod intensity - 2.0-3.0 02/25/2018 Pt Dlx1997 Hi intensity - 3.0-4.0 02/25/2018 Pt Hhd1057 PT 26.1 seconds 01/26/2018 Pt Lum3612 INR 2.4 01/26/2018 Pt Ege4466 Low Intensity - 1.5-2.0 01/26/2018 Pt Ozb9318 Mod intensity - 2.0-3.0 01/26/2018 Pt Jdd4192 Hi intensity - 3.0-4.0 01/26/2018 Pt Ist9503 PT 22.8 seconds 12/24/2017 Pt Oez1502 INR 2.0 12/24/2017 Pt Qor9093 Low Intensity - 1.5-2.0 12/24/2017 Pt Sus0782 Mod intensity - 2.0-3.0 12/24/2017 Pt Mtb4844 Hi intensity - 3.0-4.0 12/24/2017 Pt Fft7868 PT 29.4 seconds 11/18/2017 Pt Xnc6610 INR 2.8 11/18/2017 Pt Qne7571 Low Intensity - 1.5-2.0 11/18/2017 Pt Wfc3084 Mod intensity - 2.0-3.0 11/18/2017 Pt Cpu6852 Hi intensity - 3.0-4.0 11/18/2017 Pt Aka8779 PT 26.6 seconds 09/13/2017 Pt Pnw8830 INR 2.4 09/13/2017 Pt Qbv6041 Low Intensity - 1.5-2.0 09/13/2017 Pt Ckk4446 Mod intensity - 2.0-3.0 09/13/2017 Pt Jvm0488 Hi intensity - 3.0-4.0 09/13/2017 Pt Pwo5970 PT 28.2 seconds 08/10/2017 Pt Wrk3416 INR 2.6 08/10/2017 Pt Zvy7719 Low Intensity - 1.5-2.0 08/10/2017 Pt Sbc2677 Mod intensity - 2.0-3.0 08/10/2017 Pt Ndo4734 Hi intensity - 3.0-4.0 08/10/2017 Pt Fxv9908 PT 33.9 seconds 07/27/2017 Pt Pnd7525 INR 3.3 07/27/2017 Pt Emg6639 Low Intensity - 1.5-2.0 07/27/2017 Pt Tap7707 Mod intensity - 2.0-3.0 07/27/2017 Pt Vdd1907 Hi intensity - 3.0-4.0 07/27/2017 Pt Qqz5484 PT 29.1 seconds 06/29/2017 Pt Cnj3453 INR 2.7 06/29/2017 Pt Utp1670 Low Intensity - 1.5-2.0 06/29/2017 Pt Cdx7326 Mod intensity - 2.0-3.0 06/29/2017 Pt Bgt5704 Hi intensity - 3.0-4.0 06/29/2017 Pt Bln2868 PT 30.3 seconds 06/11/2017 Pt Sao1117 INR 2.9 06/11/2017 Pt Uwn6261 Low Intensity - 1.5-2.0 06/11/2017 Pt Jiy5990 Mod intensity - 2.0-3.0 06/11/2017 Pt Due1926 Hi intensity - 3.0-4.0 06/11/2017 Pt Oul5562 PT 39.1 seconds 06/07/2017 Pt Rtk2777 INR 3.9 06/07/2017 Pt Dwl7450 Low Intensity - 1.5-2.0 06/07/2017 Pt Hxb0294 Mod intensity - 2.0-3.0 06/07/2017 Pt Hwd3741 Hi intensity - 3.0-4.0 06/07/2017 Pt Yga0388 PT 34.2 seconds 05/26/2017 Pt Qcs0129 INR 3.3 05/26/2017 Pt Qvi8122 Low Intensity - 1.5-2.0 05/26/2017 Pt Xtx7480 Mod intensity - 2.0-3.0 05/26/2017 Pt Srt1985 Hi intensity - 3.0-4.0 05/26/2017 Comp Metabolic Gxu192 NA 138 mEq/L 04/23/2017 Comp Metabolic Byk275 K 4.2 mEq/L 04/23/2017 Comp Metabolic Elb768 CL 101 mEq/L 04/23/2017 Comp Metabolic Gas388 CO2 28.0 mEq/L 04/23/2017 Comp Metabolic Qbs103 AN ION GAP 13 04/23/2017 Comp Metabolic Jjv572 GL UCOSE 89 mg/dL 04/23/2017 Comp Metabolic Pkh602 Cr eat 1.1 mg/dL 04/23/2017 Comp Metabolic Mfk161 eG FR 51 ml/min/1.73m2 04/23 Comp Metabolic Koj843 BUN 26 mg/dL 04/23/2017 Comp Metabolic Ucn595 B/ C Ratio 23.9 Ratio 04/23/2017 Comp Metabolic Ovf614 CA LCIUM 9.4 mg/dL 04/23/2017 Comp Metabolic Fks344 AL K PHOS 95 U/L 04/23/2017 Comp Metabolic Zfs528 T(SGOT) 18 U/L 04/23/2017 Comp Metabolic Efe486 AL T(SGPT) 17 U/L 04/23/2017 Comp Metabolic Dwz667 BI LI T 0.7 mg/dL 04/23/2017 Comp Metabolic Nwe053 AL BUMIN 3.2 g/dL 04/23/2017 Comp Metabolic Fvu186 TP RO 5.6 g/dL 04/23/2017 Comp Metabolic Ckr391 GL OB 2.4 g/dL 04/23/2017 Comp Metabolic Vtg516 A/ G Ratio 1.3 Ratio 04/23/2017 Comp Metabolic Kqm520 Os mo 280 mOsmo 04/23/2017 Pt Ewj7659 PT 28.6 seconds 04/23/2017 Pt Ykq5919 INR 2.7 04/23/2017 Pt Acg1837 Low Intensity - 1.5-2.0 04/23/2017 Pt Iqw5442 Mod intensity - 2.0-3.0 04/23/2017 Pt Xov7931 Hi intensity - 3.0-4.0 04/23/2017 Pt Pjf5665 PT 24.4 seconds 03/16/2017 Pt Uwp3709 INR 2.2 03/16/2017 Pt Sou7430 Low Intensity - 1.5-2.0 03/16/2017 Pt Bwt0038 Mod intensity - 2.0-3.0 03/16/2017 Pt Nhy0354 Hi intensity - 3.0-4.0 03/16/2017 Pt Bhj5468 PT 28.2 seconds 02/24/2017 Pt Nva2012 INR 2.6 02/24/2017 Pt Obz4432 Low Intensity - 1.5-2.0 02/24/2017 Pt Awl6879 Mod intensity - 2.0-3.0 02/24/2017 Pt Mir5421 Hi intensity - 3.0-4.0 02/24/2017 Pt Ohh5146 PT 26.8 seconds 02/08/2017 Pt Ago7691 INR 2.5 02/08/2017 Pt Dup2746 Low Intensity - 1.5-2.0 02/08/2017 Pt Lto9738 Mod intensity - 2.0-3.0 02/08/2017 Pt Lpo5391 Hi intensity - 3.0-4.0 02/08/2017 Lipid Ord30 CHOL 150 mg/dL 01/25/2017 Lipid Ord30 HDL 55.0 mg/dl 01/25/2017 Lipid Ord30 TRIG 66 mg/dL 01/25/2017 Lipid Ord30 LDL 82 mg/dL 01/25/2017 Lipid Ord30 C/HDL 2.7 Ratio 01/25/2017 Pt Erc5336 PT 29.9 seconds 01/25/2017 Pt Xnq2975 INR 2.8 01/25/2017 Pt Sva1888 Low Intensity - 1.5-2.0 01/25/2017 Pt Aet5442 Mod intensity - 2.0-3.0 01/25/2017 Pt Fqu3331 Hi intensity - 3.0-4.0 01/25/2017 Comp Metabolic Wez791 NA 143 mEq/L 01/25/2017 Comp Metabolic Mhe384 K 3.9 mEq/L 01/25/2017 Comp Metabolic Msv395 CL 108 mEq/L 01/25/2017 Comp Metabolic Dnd599 CO2 23.0 mEq/L 01/25/2017 Comp Metabolic Zex857 AN ION GAP 16 01/25/2017 Comp Metabolic Hsc564 GL UCOSE 80 mg/dL 01/25/2017 Comp Metabolic Swz788 Cr eat 1.0 mg/dL 01/25/2017 Comp Metabolic Ogg169 eG FR 57 ml/min/1.73m2 01/25 Comp Metabolic Byo604 BUN 25 mg/dL 01/25/2017 Comp Metabolic Kve531 B/ C Ratio 25.0 Ratio 01/25/2017 Comp Metabolic Srz212 CA LCIUM 8.5 mg/dL 01/25/2017 Comp Metabolic Tto075 AL K PHOS 81 U/L 01/25/2017 Comp Metabolic Cgg004 T(SGOT) 19 U/L 01/25/2017 Comp Metabolic Nfu825 AL T(SGPT) 23 U/L 01/25/2017 Comp Metabolic Scs762 BI LI T 0.5 mg/dL 01/25/2017 Comp Metabolic Xkk397 AL BUMIN 2.9 g/dL 01/25/2017 Comp Metabolic Tdu294 TP RO 5.1 g/dL 01/25/2017 Comp Metabolic Qlx703 GL OB 2.2 g/dL 01/25/2017 Comp Metabolic Jbb336 A/ G Ratio 1.3 Ratio 01/25/2017 Comp Metabolic Mvc876 Os mo 288 mOsmo 01/25/2017 Cbc With [...] 30.7 pg 01/25/2017 Cbc With Differential Ord2 [place]% 8.2 % 01/25/2017 Cbc With Differential Ord2 MCHC 33.2 pg 01/25/2017 Cbc With Differential Ord2 Eos% 3.4 % 01/25/2017 Cbc With Differential Ord2 PLT 258 K/ul 01/25/2017 Cbc With Differential Ord2 Baso% 0.5 % 01/25/2017 Cbc With Differential Ord2 Neut ABS# 5.88 K/ul 01/25/2017 Cbc With Differential Ord2 RDW 16.5 % 01/25/2017 Cbc With Differential Ord2 Lymph ABS# 3.10 K/ul 01/25/2017 Cbc With Differential Ord2 [place] ABS# 0.8 K/ul 01/25/2017 Cbc With Differential Ord2 Eos ABS# 0.4 K/ul 01/25/2017 Cbc With Differential Ord2 Baso ABS# 0.1 K/ul 01/25/2017 Free T4 Grq321 FREE T4 2.09 ng/dL 01/25/2017 Tsh Ord6 hTSH II 0.46 uIU/mL 01/25/2017 Pt Yet9789 PT 26.1 seconds 11/26/2016 Pt Wyi5952 INR 2.6 11/26/2016 Pt Tld3923 Low Intensity - 1.5-2.0 11/26/2016 Pt Okt2592 Mod intensity - 2.0-3.0 11/26/2016 Pt Sun2333 Hi intensity - 3.0-4.0 11/26/2016 Pt Qha6402 PT 26.2 seconds 10/29/2016 Pt Vwq4270 INR 2.6 10/29/2016 Pt Oil3444 Low Intensity - 1.5-2.0 10/29/2016 Pt Cbj4157 Mod intensity - 2.0-3.0 10/29/2016 Pt Nsx3410 Hi intensity - 3.0-4.0 10/29/2016 Pt Sga5664 PT 20.8 seconds 10/13/2016 Pt Tkg4798 INR 1.9 10/13/2016 Pt Sgu4570 Low Intensity - 1.5-2.0 10/13/2016 Pt Gcd7060 Mod intensity - 2.0-3.0 10/13/2016 Pt Ftz0527 Hi intensity - 3.0-4.0 10/13/2016 Pt Pwb4295 PT 26.5 seconds 10/01/2016 Pt Jcm3355 INR 2.6 10/01/2016 Pt Nwb1547 Low Intensity - 1.5-2.0 10/01/2016 Pt Nsr8846 Mod intensity - 2.0-3.0 10/01/2016 Pt Oat7615 Hi intensity - 3.0-4.0 10/01/2016 Pt Tne1665 PT 24.6 seconds 09/14/2016 Pt Cpv8917 INR 2.4 09/14/2016 Pt Hot2222 Low Intensity - 1.5-2.0 09/14/2016 Pt Fek2987 Mod intensity - 2.0-3.0 09/14/2016 Pt Enh0377 Hi intensity - 3.0-4.0 09/14/2016 Pt Aom7356 PT 18.0 seconds 09/07/2016 Pt Hey3922 INR 1.6 09/07/2016 Pt Gvo2969 Low Intensity - 1.5-2.0 09/07/2016 Pt Ysy1004 Mod intensity - 2.0-3.0 09/07/2016 Pt Hss9866 Hi intensity - 3.0-4.0 09/07/2016 Pt Eap4457 PT 23.7 seconds 08/12/2016 Pt Jvz6461 INR 2.2 08/12/2016 Pt Tws1209 Low Intensity - 1.5-2.0 08/12/2016 Pt Uro0817 Mod intensity - 2.0-3.0 08/12/2016 Pt Vkl3540 Hi intensity - 3.0-4.0 08/12/2016 Pt Jgl4635 PT 21.6 seconds 07/27/2016 Pt Ctr8771 INR 2.0 07/27/2016 Pt Wgl8420 Low Intensity - 1.5-2.0 07/27/2016 Pt Hug3889 Mod intensity - 2.0-3.0 07/27/2016 Pt Mtn8784 Hi intensity - 3.0-4.0 07/27/2016 Pt Opx5315 PT 26.0 seconds 06/15/2016 Pt Bqy8590 INR 2.5 06/15/2016 Pt Vxr7088 Low Intensity - 1.5-2.0 06/15/2016 Pt Lhk8366 Mod intensity - 2.0-3.0 06/15/2016 Pt Mkf6900 Hi intensity - 3.0-4.0 06/15/2016 Pt Aqi2476 PT 18.8 seconds 06/01/2016 Pt Kkr6769 INR 1.7 06/01/2016 Pt Ikr2813 Low Intensity - 1.5-2.0 06/01/2016 Pt Wwm1848 Mod intensity - 2.0-3.0 06/01/2016 Pt Hql8088 Hi intensity - 3.0-4.0 06/01/2016 Pt Dmv9894 PT 20.8 seconds 05/12/2016 Pt Mgr8113 INR 1.9 05/12/2016 Pt Mwe4068 Low Intensity - 1.5-2.0 05/12/2016 Pt Pel4833 Mod intensity - 2.0-3.0 05/12/2016 Pt Xfu2518 Hi intensity - 3.0-4.0 05/12/2016 Pt Ode2206 PT 24.5 seconds 04/10/2016 Pt Vwc5510 INR 2.4 04/10/2016 Pt Jiy0706 Low Intensity - 1.5-2.0 04/10/2016 Pt Rte5587 Mod intensity - 2.0-3.0 04/10/2016 Pt Iyp0244 Hi intensity - 3.0-4.0 04/10/2016 Pt Flq8276 PT 26.4 seconds 03/10/2016 Pt Rzj2506 INR 2.6 03/10/2016 Pt Vjt1428 Low Intensity - 1.5-2.0 03/10/2016 Pt Wnq3054 Mod intensity - 2.0-3.0 03/10/2016 Pt Edh0914 Hi intensity - 3.0-4.0 03/10/2016 Pt Ghy6158 PT 24.9 seconds 03/06/2016 Pt Cfj9576 INR 2.4 03/06/2016 Pt Yrd8401 Low Intensity - 1.5-2.0 03/06/2016 Pt Vot6221 Mod intensity - 2.0-3.0 03/06/2016 Pt Cgv6167 Hi intensity - 3.0-4.0 03/06/2016 Pt Arc1683 PT 21.9 seconds 02/25/2016 Pt Idz3018 INR 2.0 02/25/2016 Pt Sdt4271 Low Intensity - 1.5-2.0 02/25/2016 Pt Mdj1262 Mod intensity - 2.0-3.0 02/25/2016 Pt Meq4390 Hi intensity - 3.0-4.0 02/25/2016 Pt Irk7409 PT 21.8 seconds 02/21/2016 Pt Ujs8977 INR 2.0 02/21/2016 Pt Icy4829 Low Intensity - 1.5-2.0 02/21/2016 Pt Dkv8608 Mod intensity - 2.0-3.0 02/21/2016 Pt Kac0180 Hi intensity - 3.0-4.0 02/21/2016 Culture Urine [id number] URI NE CULTURE SEE NOTES 02/20/2016 Culture Urine [id number] Con tinued Results 02/20/2016 Urine Culture Ucult [...] 56.3 % 02/14/2016 Cbc With Differential Ord2 Lymph% 29.0 % 02/14/2016 Cbc With Differential Ord2 MCV 91.8 fl 02/14/2016 Cbc With Differential Ord2 [place]% 9.3 % 02/14/2016 Cbc With Differential Ord2 [...] 2.55 K/ul 02/14/2016 Cbc With Differential Ord2 [place] ABS# 0.8 K/ul 02/14/2016 Cbc With Differential Ord2 Eos ABS# 0.4 K/ul 02/14/2016 Cbc With Differential Ord2 Baso ABS# 0.1 K/ul 02/14/2016 Tsh Ord6 hTSH II 0.80 uIU/mL 02/14/2016 Pt Ydu8461 PT 27.1 seconds 02/14/2016 Pt Pyn8920 INR 2.7 02/14/2016 Pt Faq7872 Low Intensity - 1.5-2.0 02/14/2016 Pt Ltj4385 Mod intensity - 2.0-3.0 02/14/2016 Pt Lqu3585 Hi intensity - 3.0-4.0 02/14/2016 Free T4 Zdq731 FREE T4 1.87 ng/dL 02/14/2016 Comp Metabolic Usj689 NA 139 mEq/L 02/14/2016 Comp Metabolic Rur463 K 3.8 mEq/L 02/14/2016 Comp Metabolic Xrh941 CL 103 mEq/L 02/14/2016 Comp Metabolic Qvu527 CO2 27.0 mEq/L 02/14/2016 Comp Metabolic Ywk209 AN ION GAP 13 02/14/2016 Comp Metabolic Erp218 GL UCOSE 91 mg/dL 02/14/2016 Comp Metabolic Kqb413 Cr eat 1.0 mg/dL 02/14/2016 Comp Metabolic Nuh685 eG FR 58 ml/min/1.73m2 02/13 Comp Metabolic Kga698 BUN 16 mg/dL 02/14/2016 Comp Metabolic Uja690 B/ C Ratio 16.2 Ratio 02/14/2016 Comp Metabolic Eas765 CA LCIUM 9.0 mg/dL 02/14/2016 Comp Metabolic Itx100 AL K PHOS 88 U/L 02/14/2016 Comp Metabolic Dpu538 T(SGOT) 17 U/L 02/14/2016 Comp Metabolic Aiw444 AL T(SGPT) 12 U/L 02/14/2016 Comp Metabolic Mee601 BI LI T 0.6 mg/dL 02/14/2016 Comp Metabolic Znt960 AL BUMIN 3.2 g/dL 02/14/2016 Comp Metabolic Mct011 TP RO 5.8 g/dL 02/14/2016 Comp Metabolic Sku426 GL OB 2.6 g/dL 02/14/2016 Comp Metabolic Dwv221 A/ G Ratio 1.3 Ratio 02/14/2016 Comp Metabolic Cgj081 Os mo 278 mOsmo 02/14/2016 Pt Iuv3392 PT 34.6 seconds 02/06/2016 Pt Joo2864 INR 3.7 02/06/2016 Pt Kkj0942 Low Intensity - 1.5-2.0 02/06/2016 Pt Brm5439 Mod intensity - 2.0-3.0 02/06/2016 Pt Zab9172 Hi intensity - 3.0-4.0 02/06/2016 Pt Usy3459 PT 33.3 seconds 01/23/2016 Pt Rhq6342 INR 3.5 01/23/2016 Pt Mis9365 Low Intensity - 1.5-2.0 01/23/2016 Pt Apt6791 Mod intensity - 2.0-3.0 01/23/2016 Pt Gxm6171 Hi intensity - 3.0-4.0 01/23/2016 Pt Cbh2680 PT 30.5 seconds 12/31/2015 Pt Eqq4744 INR 3.2 12/31/2015 Pt Aol4861 Low Intensity - 1.5-2.0 12/31/2015 Pt Wtm6695 Mod intensity - 2.0-3.0 12/31/2015 Pt Ipf5078 Hi intensity - 3.0-4.0 12/31/2015 Pt Faz4799 PT 35.6 seconds 12/25/2015 Pt Xss6734 INR 3.9 12/25/2015 Pt Vsc2523 Low Intensity - 1.5-2.0 12/25/2015 Pt Ktx9949 Mod intensity - 2.0-3.0 12/25/2015 Pt Yhl6804 Hi intensity - 3.0-4.0 12/25/2015 Pt Rdz5505 PT 30.8 seconds 11/21/2015 Pt Sbv2702 INR 3.2 11/21/2015 Pt Cfg9881 Low Intensity - 1.5-2.0 11/21/2015 Pt Zlf5365 Mod intensity - 2.0-3.0 11/21/2015 Pt Okf1470 Hi intensity - 3.0-4.0 11/21/2015 Uric Acid [...] 30.0 pg 11/20/2015 Cbc With Differential Ord2 [place]% 8.1 % 11/20/2015 Cbc With Differential Ord2 [...] 2.51 K/ul 11/20/2015 Cbc With Differential Ord2 [place] ABS# 0.9 K/ul 11/20/2015 Cbc With Differential Ord2 Eos ABS# 0.3 K/ul 11/20/2015 Cbc With Differential Ord2 Baso ABS# 0.0 K/ul 11/20/2015 Comp Metabolic Gjl527 NA 137 mEq/L 10/22/2015 Comp Metabolic Hxh802 K 3.9 mEq/L 10/22/2015 Comp Metabolic Cuj187 CL 100 mEq/L 10/22/2015 Comp Metabolic Ipp222 CO2 31.0 mEq/L 10/22/2015 Comp Metabolic Wsz986 AN ION GAP 10 10/22/2015 Comp Metabolic Olw886 GL UCOSE 94 mg/dL 10/22/2015 Comp Metabolic Vsz964 Cr eat 1.0 mg/dL 10/22/2015 Comp Metabolic Cxb890 eG FR 55 ml/min/1.73m2 10/21 Comp Metabolic Ill387 BUN 19 mg/dL 10/22/2015 Comp Metabolic Mii061 B/ C Ratio 18.3 Ratio 10/22/2015 Comp Metabolic Csj573 CA LCIUM 8.8 mg/dL 10/22/2015 Comp Metabolic Khy371 AL K PHOS 83 U/L 10/22/2015 Comp Metabolic Ihr111 T(SGOT) 15 U/L 10/22/2015 Comp Metabolic Ipt210 AL T(SGPT) 13 U/L 10/22/2015 Comp Metabolic Cuz559 BI LI T 0.9 mg/dL 10/22/2015 Comp Metabolic Jtn298 AL BUMIN 2.8 g/dL 10/22/2015 Comp Metabolic Nvm511 TP RO 5.4 g/dL 10/22/2015 Comp Metabolic Yed417 GL OB 2.6 g/dL 10/22/2015 Comp Metabolic Usm847 A/ G Ratio 1.1 Ratio 10/22/2015 Comp Metabolic Owa083 Os mo 276 mOsmo 10/22/2015 Bili D Ord93 BILI D 0.1 mg/dL 10/22/2015 Bili D Ord93 BILI I 0.8 mg/dL 10/22/2015 Pt Mhs9694 PT 22.8 seconds 10/22/2015 Pt Eku9629 INR 2.1 10/22/2015 Pt Mte1220 Low Intensity - 1.5-2.0 10/22/2015 Pt Qbl9624 Mod intensity - 2.0-3.0 10/22/2015 Pt Xdu7588 Hi intensity - 3.0-4.0 10/22/2015 Pt Idx1159 PT 28.0 seconds 09/16/2015 Pt Ljf3153 INR 2.7 09/16/2015 Pt Npf2462 Low Intensity - 1.5-2.0 09/16/2015 Pt Krj2114 Mod intensity - 2.0-3.0 09/16/2015 Pt Roo2407 Hi intensity - 3.0-4.0 09/16/2015 Tsh Ord6 hTSH II 1.40 uIU/mL 09/16/2015 Free T4 Aac939 FREE T4 1.73 ng/dL 09/16/2015 Lipid Ord30 CHOL 169 mg/dL 09/16/2015 Lipid Ord30 HDL 66.0 mg/dl 09/16/2015 Lipid Ord30 TRIG 78 mg/dL 09/16/2015 Lipid Ord30 LDL 87 mg/dL 09/16/2015 Lipid Ord30 C/HDL 2.6 Ratio 09/16/2015 Pt Avh4941 PT 26.6 seconds 08/21/2015 Pt Sso3557 INR 2.6 08/21/2015 Pt Zvr8945 Low Intensity - 1.5-2.0 08/21/2015 Pt Nec8401 Mod intensity - 2.0-3.0 08/21/2015 Pt Bio4757 Hi intensity - 3.0-4.0 08/21/2015 Comp Metabolic Xxy422 NA 141 mEq/L 08/08/2015 Comp Metabolic Jqe733 K 3.3 mEq/L 08/08/2015 Comp Metabolic Wuz510 CL 102 mEq/L 08/08/2015 Comp Metabolic Kmj425 CO2 31.0 mEq/L 08/08/2015 Comp Metabolic Krd041 AN ION GAP 11 08/08/2015 Comp Metabolic Zoy398 GL UCOSE 83 mg/dL 08/08/2015 Comp Metabolic Jca276 Cr eat 1.0 mg/dL 08/08/2015 Comp Metabolic Did475 eG FR 55 ml/min/1.73m2 08/08 Comp Metabolic Ikr935 BUN 19 mg/dL 08/08/2015 Comp Metabolic Vij076 B/ C Ratio 18.3 Ratio 08/08/2015 Comp Metabolic Mge469 CA LCIUM 8.9 mg/dL 08/08/2015 Comp Metabolic Cgv154 AL K PHOS 84 U/L 08/08/2015 Comp Metabolic Lpe805 T(SGOT) 20 U/L 08/08/2015 Comp Metabolic Lli028 AL T(SGPT) 18 U/L 08/08/2015 Comp Metabolic Sid798 BI LI T 0.6 mg/dL 08/08/2015 Comp Metabolic Owr299 AL BUMIN 3.3 g/dL 08/08/2015 Comp Metabolic Wdr363 TP RO 5.9 g/dL 08/08/2015 Comp Metabolic Qib585 GL OB 2.6 g/dL 08/08/2015 Comp Metabolic Rpk666 A/ G Ratio 1.3 Ratio 08/08/2015 Comp Metabolic Nro312 Os mo 283 mOsmo 08/08/2015 Cbc With [...] 30.0 pg 08/08/2015 Cbc With Differential Ord2 [place]% 8.2 % 08/08/2015 Cbc With Differential Ord2 [...] 2.90 K/ul 08/08/2015 Cbc With Differential Ord2 [place] ABS# 0.9 K/ul 08/08/2015 Cbc With Differential [...] Ord93 BILI I 0.5 mg/dL 08/08/2015 Pt Jal0775 PT 31.8 seconds 08/05/2015 Pt Atk2851 INR 3.2 08/05/2015 Pt Xct3169 Low Intensity - 1.5-2.0 08/05/2015 Pt Eqd2910 Mod intensity - 2.0-3.0 08/05/2015 Pt Yae6211 Hi intensity - 3.0-4.0 08/05/2015 Pt Jzn6812 PT 27.4 seconds 06/27/2015 Pt Uyu2970 INR 2.6 06/27/2015 Pt Zwh6868 Low Intensity - 1.5-2.0 06/27/2015 Pt Lyc8591 Mod intensity - 2.0-3.0 06/27/2015 Pt Uwe8596 Hi intensity - 3.0-4.0 06/27/2015 Tsh Ord6 [...] Ord2 RDW 15.1 % 05/31/2015 Free T4 Bpv397 FREE T4 1.89 ng/dL 05/31/2015 Comp Metabolic Sgt141 NA 140 mEq/L 05/31/2015 Comp Metabolic Pwd685 K 3.3 mEq/L 05/31/2015 Comp Metabolic Ugv128 CL 99 mEq/L 05/31/2015 Comp Metabolic Zrc980 CO2 30.0 mEq/L 05/31/2015 Comp Metabolic Nxf055 AN ION GAP 14 05/31/2015 Comp Metabolic Oqw705 GL UCOSE 70 mg/dL 05/31/2015 Comp Metabolic Eho861 Cr eat 1.0 mg/dL 05/31/2015 Comp Metabolic Dep045 eG FR 55 ml/min/1.73m2 05/31 Comp Metabolic Wae552 BUN 23 mg/dL 05/31/2015 Comp Metabolic Dxo780 B/ C Ratio 22.1 Ratio 05/31/2015 Comp Metabolic Unu429 CA LCIUM 8.9 mg/dL 05/31/2015 Comp Metabolic Kui827 AL K PHOS 86 U/L 05/31/2015 Comp Metabolic Qer167 T(SGOT) 28 U/L 05/31/2015 Comp Metabolic Gfw238 AL T(SGPT) 30 U/L 05/31/2015 Comp Metabolic Yfy539 BI LI T 0.4 mg/dL 05/31/2015 Comp Metabolic Rli179 AL BUMIN 3.3 g/dL 05/31/2015 Comp Metabolic Smi532 TP RO 6.0 g/dL 05/31/2015 Comp Metabolic Uag925 GL OB 2.7 g/dL 05/31/2015 Comp Metabolic Aol782 A/ G Ratio 1.2 Ratio 05/31/2015 Comp Metabolic Ylx766 Os mo 282 mOsmo 05/31/2015 Pt Okb0483 PT 23.3 seconds 04/15/2015 Pt Nqd7262 INR 2.2 04/15/2015 Pt Wqn8703 Low Intensity - 1.5-2.0 04/15/2015 Pt Bcc5309 Mod intensity - 2.0-3.0 04/15/2015 Pt Asp1032 Hi intensity - 3.0-4.0 04/15/2015 Pt Tey1476 PT 19.5 seconds 04/04/2015 Pt Sve3798 INR 1.7 04/04/2015 Pt Hqo1185 Low Intensity - 1.5-2.0 04/04/2015 Pt San6462 Mod intensity - 2.0-3.0 04/04/2015 Pt Qek0234 Hi intensity - 3.0-4.0 04/04/2015 Pt Sle4631 PT 39.8 seconds 04/01/2015 Pt Std1771 INR 4.3 04/01/2015 Pt Eky1080 Low Intensity - 1.5-2.0 04/01/2015 Pt Cyo3278 Mod intensity - 2.0-3.0 04/01/2015 Pt Zqf1946 Hi intensity - 3.0-4.0 04/01/2015 Metabolic Ord15 [...] Metabolic Ord15 CALCIUM 8.7 mg/dL 02/28/2015 Pt Gff8110 PT 31.4 seconds 02/28/2015 Pt Nvn3121 INR 3.2 02/28/2015 Pt Gwi9234 Low Intensity - 1.5-2.0 02/28/2015 Pt Dyf4913 Mod intensity - 2.0-3.0 02/28/2015 Pt Zcp5310 Hi intensity - 3.0-4.0 02/28/2015 Pt Htg2678 PT 23.2 seconds 01/18/2015 Pt Jug7591 INR 2.1 01/18/2015 Pt Cxr4288 Low Intensity - 1.5-2.0 01/18/2015 Pt Tdh7605 Mod intensity - 2.0-3.0 01/18/2015 Pt Rkd7552 Hi intensity - 3.0-4.0 01/18/2015 Pt Jst0387 PT 18.2 seconds 01/10/2015 Pt Tpo9291 INR 1.6 01/10/2015 Pt Mxy1001 Low Intensity - 1.5-2.0 01/10/2015 Pt Ept9817 Mod intensity - 2.0-3.0 01/10/2015 Pt Lts8447 Hi intensity - 3.0-4.0 01/10/2015 Review of [...] gait 08/16/2018 None Full Exam - General 1995 Musculoskeletal gait and station Overall: normal station [...] accomodation 07/11/2018 None Full Exam - General 1995 [...] 03/24/2018 ADMIN PNEUMOCOCCAL V ACCINE SNOMED CT: 64945756 CPT-4: G0009 03/24/2018 FLU VACC PRSV FREE I NC ANTIG Formatting Model/CDA Sections, Assigned to/Dorothea Tan CPT-4: 02418Ysmkvdf 03/24/2018 Pneumococcal Polysac charide Vaccine, 23-Valent, Ad CPT-4: 54175 03/24/2018 TRIAMCINOLONE ACET I [place] NOS CPT-4: J3301 06/15/2017 THER/PROPH/DIAG INJ SC/IM CPT-4: 57838 06/15/2017 ADMIN PNEUMOCOCCAL V ACCINE SNOMED CT: 26073059 CPT-4: G0009 03/16/2017 ADMIN INFLUENZA VIRU S VAC CPT-4: G0008 03/16/2017 FLU VAC NO PRSV 4 VA L 3 YRS+ CPT-4: 94390 03/16/2017 PNEUMOCOCCAL VACC [address]: 75020240 CPT-4: 58781 03/16/2017 URINALYSIS NONAUTO W /O SCOPE CPT-4: 95744 08/26/2016 THER/PROPH/DIAG INJ SC/IM CPT-4: 39602 07/22/2016 TRIAMCINOLONE ACET I [place] NOS CPT-4: J3301 07/22/2016 ROCEPHIN, PER 250 MG CPT-4: J0696 07/22/2016 TRIAMCINOLONE ACET I [place] NOS CPT-4: J3301 02/05/2015 Vital Signs Date Vital 08/16/2018 Blood Pressure 1: 104/66 Code: 8480-6 BMI: 32.3 Code: 86844-3 Heart Rate 1: 94 bpm Height: 5'7" SpO2: 96% Weight: 206 lbs 07/11/2018 Blood Pressure 1: 102/68 Code: 8480-6 BMI: 34.5 Code: 88436-6 Heart Rate 1: 101 bpm Height: 5'7" SpO2: 98% Weight: 220 lbs 03/24/2018 Blood Pressure 1: 130/72 Code: 8480-6 BMI: 33.4 Code: 03193-3 Heart Rate 1: 82 bpm Height: 5'7" SpO2: 93% Weight: 213 lbs 11/18/2017 Blood Pressure 1: 128/70 Code: 8480-6 BMI: 33.6 Code: 56512-5 Heart Rate 1: 98 bpm Height: 5'7" SpO2: 97% Weight: 214 lbs 8 oz 09/30/2017 Blood Pressure 1: 100/50 Code: 8480-6 BMI: 34.0 Code: 29448-8 Heart Rate 1: 66 bpm Height: 5'7" SpO2: 96% Weight: 217 lbs 08/17/2017 Blood Pressure 1: 104/60 Code: 8480-6 BMI: 33.7 Code: 51242-1 Heart Rate 1: 99 bpm Height: 5'7" SpO2: 97% Weight: 215 lbs 06/15/2017 Blood Pressure 1: 120/64 Code: 8480-6 BMI: 33.5 Code: 10104-4 Heart Rate 1: 91 bpm Height: 5'7" SpO2: 94% Weight: 214 lbs 04/01/2017 Blood Pressure 1: 110/68 Code: 8480-6 BMI: 154.4 Code: 33582-0 Heart Rate 1: 66 bpm Height: 2'7" SpO2: 95% Weight: 211 lbs 03/16/2017 Blood Pressure 1: 130/72 Code: 8480-6 BMI: 33.0 Code: 96786-3 Heart Rate 1: 95 bpm Height: 5'7" SpO2: 97% Weight: 211 lbs 02/09/2017 Blood Pressure 1: 120/70 Code: 8480-6 BMI: 32.9 Code: 67045-2 Heart Rate 1: 78 bpm Height: 5'7" SpO2: 96% Weight: 210 lbs 10/13/2016 Blood Pressure 1: 118/76 Code: 8480-6 BMI: 32.6 Code: 44887-2 Heart Rate 1: 97 bpm Height: 5'7" SpO2: 98% Weight: 208 lbs 07/31/2016 Blood Pressure 1: 110/64 Code: 8480-6 BMI: 32.1 Code: 70797-1 Heart Rate 1: 79 bpm Height: 5'7" SpO2: 94% Weight: 205 lbs 07/22/2016 Blood Pressure 1: 108/74 Code: 8480-6 BMI: 32.1 Code: 15058-0 Heart Rate 1: 71 bpm Height: 5'7" SpO2: 97% Temperature: 36.9 (C ) / 98.4 (F) Weight: 205 lbs 05/01/2016 Blood Pressure 1: 120/72 Code: 8480-6 BMI: 32.7 Code: 51453-5 Heart Rate 1: 75 bpm Height: 5'7" SpO2: 94% Weight: 209 lbs 04/06/2016 Blood Pressure 1: 106/62 Code: 8480-6 BMI: 32.7 Code: 16147-7 Heart Rate 1: 83 bpm Height: 5'7" SpO2: 97% Weight: 209 lbs 03/06/2016 Blood Pressure 1: 112/68 Code: 8480-6 BMI: 32.7 Code: 30366-3 Heart Rate 1: 90 bpm Height: 5'7" SpO2: 97% Weight: 209 lbs 03/03/2016 Blood Pressure 1: 120/62 Code: 8480-6 BMI: 32.7 Code: 65247-2 Heart Rate 1: 92 bpm Height: 5'7" SpO2: 98% Weight: 209 lbs 02/07/2016 Blood Pressure 1: 110/64 Code: 8480-6 BMI: 32.7 Code: 81621-1 Heart Rate 1: 87 bpm Height: 5'7" SpO2: 97% Weight: 209 lbs 12/13/2015 Blood Pressure 1: 110/64 Code: 8480-6 BMI: 33.5 Code: 07608-2 Heart Rate 1: 90 bpm Height: 5'7" SpO2: 97% Weight: 214 lbs 12/03/2015 Blood Pressure 1: 132/76 Code: 8480-6 BMI: 33.4 Code: 85788-8 Heart Rate 1: 82 bpm Height: 5'7" SpO2: 99% Weight: 213 lbs 11/20/2015 Blood Pressure 1: 108/68 Code: 8480-6 BMI: 32.4 Code: 55978-8 Heart Rate 1: 77 bpm Height: 5'7" SpO2: 97% Weight: 207 lbs 09/17/2015 Blood Pressure 1: 122/76 Code: 8480-6 BMI: 33.0 Code: 76597-2 Heart Rate 1: 91 bpm Height: 5'7" SpO2: 97% Weight: 211 lbs 05/31/2015 Blood Pressure 1: 128/82 Code: 8480-6 BMI: 33.4 Code: 43653-0 Heart Rate 1: 98 bpm Height: 5'7" SpO2: 99% Weight: 213 lbs 02/05/2015 Blood Pressure 1: 128/80 Code: 8480-6 BMI: 32.6 Code: 04844-9 Heart Rate 1: 86 bpm Height: 5'7" SpO2: 97% Weight: 208 lbs 11/20/2014 Blood Pressure 1: 128/90 Code: 8480-6 BMI: 30.9 Code: 34648-7 Heart Rate 1: 94 bpm Height: 5'7" [...] Findings Denies fever 05/31/2015 None hypothyroid 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 P ATIENT, LEVEL IV Diagnosis: Atrophy of thyroid (acquired)[ICD10: E03.4] Diagnosis: Essential (primary) hypertension[ICD10: I10] Diagnosis: Other fatigue[ICD10: R53.83] Diagnosis: Localized edema[ICD10: R60.0] Valerie Psiano MD, [facility] CPT-4: 19460 07/11/2018 ([id number]) 22056 EST. P ATIENT, LEVEL IV Diagnosis: Essential (primary) hypertension[ICD10: I10] Diagnosis: Atrophy of thyroid (acquired)[ICD10: E03.4] Diagnosis: Chronic atrial fibrillation[ICD10: I48.2] Valerie Pisano MD, [facility] CPT-4: 91944 03/24/2018 ([id number]) 67741 EST. P ATIENT, LEVEL IV Diagnosis: Essential (primary) hypertension[ICD10: I10] Diagnosis: Atrophy of thyroid (acquired)[ICD10: E03.4] Diagnosis: Chronic atrial fibrillation[ICD10: I48.2] Valerie Pisano MD, [facility] CPT-4: 05914 11/18/2017 [id number] EST. PATIENT, LEVEL IV Diagnosis: Localized edema[ICD10: R60.0] Roxie Pisano MD, [facility] CPT-4: 98944 09/30/2017 ([id number]) 71704 EST. P ATIENT, LEVEL III Diagnosis: Essential (primary) hypertension[ICD10: I10] Valerie Pisano MD, C CPT-4: 88458 08/17/2017 ([id number]) 21387 EST. P ATIENT, LEVEL IV Diagnosis: Essential (primary) hypertension[ICD10: I10] Diagnosis: Atrophy of thyroid (acquired)[ICD10: E03.4] Diagnosis: Chronic atrial fibrillation[ICD10: I48.2] Diagnosis: Cervicalgia[ICD10: M54.2] Diagnosis: Other muscle spasm[ICD10: M62.838] Valerie Pisano MD, [facility] CPT- 4: 94116 06/15/2017 15199 EST. PATIENT, LEVEL III Diagnosis: Laceration without foreign body of other finger without damage to nail, initial encounter[ICD10: S61.218A] Roxie Pisano MD, [facility] CPT-4: 27166 04/01/2017 ([id number]) 93139 EST. 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 P ATIENT, LEVEL IV Diagnosis: Chronic atrial fibrillation[ICD10: I48.2] Diagnosis: Essential (primary) hypertension[ICD10: I10] Diagnosis: Other fatigue[ICD10: R53.83] Diagnosis: [facility] (current) use of anticoagulants[ICD10: Z79.01] Diagnosis: Atrophy of thyroid (acquired)[ICD10: E03.4] Valerie Pisano MD, [facility] CPT-4: 77459 02/09/2017 ([id number]) 71763 EST. 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 PATIENT, LEVEL III Diagnosis: Other acute sinusitis[ICD10: J01.80] Diagnosis: Other allergic rhinitis[ICD10: J30.89] Roxie Pisano MD, [facility] CPT-4: 56509 07/31/2016 ([id number]) 10788 EST. P ATIENT, LEVEL III Diagnosis: Acute recurrent maxillary sinusitis[ICD10: J01.01] Valerie Pisano MD, [facility] CPT-4: 30892 07/22/2016 [id number] EST. PATIENT, LEVEL IV Diagnosis: Essential (primary) hypertension[ICD10: I10] Diagnosis: Other allergic rhinitis[ICD10: J30.89] Diagnosis: Localized edema[ICD10: R60.0] Roxie Pisano MD, [facility] CPT-4: 71765 05/01/2016 [id number] EST. PATIENT, LEVEL III Diagnosis: Cellulitis of left lower limb[ICD10: L03.116] Diagnosis: Localized edema[ICD10: R60.0] Roxie Pisano MD, [facility] CPT-4: 21780 04/06/2016 ([id number]) Miscellaneou s no charge Diagnosis: Cellulitis of left lower limb[ICD10: L03.116] Diagnosis: Localized edema[ICD10: R60.0] Roxie Pisano MD, [facility] CPT-4: 20598 03/10/2016 ([id number]) Miscellaneou s no charge Diagnosis: Cellulitis of left lower limb[ICD10: L03.116] Roxie Pisano MD, [facility] CPT-4: 56791 03/06/2016 [id number] EST. PATIENT, LEVEL IV Diagnosis: Cellulitis of left lower limb[ICD10: L03.116] Diagnosis: Localized edema[ICD10: R60.0] Roxie Pisano MD, [facility] CPT-4: 76176 03/03/2016 ([id number]) 20825 EST. P ATIENT, LEVEL III Diagnosis: Essential (primary) hypertension[ICD10: I10] Diagnosis: [facility] (current) use of anticoagulants[ICD10: Z79.01] Diagnosis: Chronic atrial fibrillation[ICD10: I48.2] Brielle Pisano MD, [facility] CPT-4: 21568 02/07/2016 ([id number]) 95710 EST. P ATIENT, LEVEL III Diagnosis: Iliotibial band syndrome, right leg[ICD10: M76.31] Diagnosis: Localized edema[ICD10: R60.0] Brielle Pisano MD, [facility] CPT- 4: 73191 12/13/2015 ([id number]) 92503 EST. P ATIENT, LEVEL III Diagnosis: Localized edema[ICD10: R60.0] Diagnosis: Essential (primary) hypertension[ICD10: I10] Brielle Pisano MD, [facility] CPT-4: 92234 12/03/2015 ([id number]) 25815 EST. 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 PATIENT, LEVEL IV Diagnosis: Essential (primary) hypertension[ICD10: I10] Diagnosis: [facility] (current) use of anticoagulants[ICD10: Z79.01] Diagnosis: Muscle spasm of back[ICD10: M62.830] Roxie Pisano MD, [facility] CPT- 4: 05822 09/17/2015 ([id number]) 68855 EST. P ATIENT, LEVEL IV Diagnosis: Localized edema[ICD10: R60.0] Diagnosis: Other specified hypothyroidism[ICD10: E03.8] Diagnosis: Essential (primary) hypertension[ICD10: I10] Brielle Pisano MD, [facility] CPT-4: 42646 05/31/2015 ([id number]) 16438 EST. P ATIENT, LEVEL III Diagnosis: ALLERGIC RHINITIS[ICD9: 477.9] Diagnosis: ESSENTIAL HYPERTENSION[ICD9: 401.9] Brielle Pisano MD, [facility] CPT-4: 63844 02/05/2015 ([id number]) OFFICE [facility] - LEVEL 4 Diagnosis: ESSENTIAL HYPERTENSION[ICD9: 401.9] Diagnosis: HYPOTHYROIDISM[ICD9: 244.9] Diagnosis: ACTINIC KERATOSIS[ICD9: 702.0] Valerie Pisano MD, [facility] CPT-4: 66174 11/20/2014 Plan of Care Planned Activity Notes [...] - decrease coumadin to 4mg daily. 08/16/2018 Patient Education: Patient Medication Summary Completed 08/16/2018 Patient Education: Hypertension Completed 08/16/2018 Patient Education: Patient Medication Summary Completed 07/29/2018 Appointment: Brielle Cavazos WPtel: [phone] [phone] (15 min) Moderate 07/12/2018 Visit Plan: Hypertension - well con carlosfedeed - continue with current medications, continue with [...] daily. 07/11/2018 Appointment: Valerie Pisano WPtel: [phone] [place] [id number] (15 min) Moderate 07/11/2018 Patient Education: [...] given today. 03/24/2018 Appointment: Valerie Pisano WPtel: [address] [place], [place] [id number] (15 min) Moderate 03/24/2018 Patient Education: Patient [...] of control. 11/18/2017 Appointment: Valerie Pisano WPtel: [facility]5 [facility]6[address] (15 min) Moderate 11/18/2017 Patient Education: Patient Medication Summary Completed 11/18/2017 Referral: Via [facility] WPtel: [address] Pt notified at appointment Appointment Confirmed [...] Unna Boots 09/30/2017 Appointment: Roxie Cazares WPtel: [facility] (30 min) Complex 09/30/2017 Patient Education: Patient Medication Summary Completed 09/30/2017 Care Plan: Referral Order SNOMED-CT : [id number] Pending 09/30/2017 Visit Plan: Hypertension - well [...] this time. 08/17/2017 Appointment: Valerie Pisano WPtel: [address] [place], [place] [id number] (15 min) Moderate 08/17/2017 Patient Education: Patient [...] muscles. allergies - kenalog 40mg im bristol Tynker squibb - lot # [id number] expires september 2018 06/15/2017 Visit Plan: Hypertension [...] muscles. 06/15/2017 Appointment: Valerie Pisano WPtel: [facility]5 [facility] ([facility] min) Moderate 06/15/2017 Patient Education: Patient Medication Summary Completed 06/15/2017 Care Plan: Referral Order SNOMED-CT : [id number] Pending 06/15/2017 Appointment: Nurse Visit 04/05/2017 Appointment: [...] booster. 04/01/2017 Appointment: Roxie Cazares WPtel: [facility]5 [facility] [place] (15 min) Moderate 04/01/2017 Patient Education: [...] today 03/16/2017 Appointment: [facility]el[phone] (15 min) Moderate 03/16/2017 Patient Education: [...] of control. 1 pill mon/wed/fri, 1/2 pill //sat/sun take - This is [...] allergy spray. 02/09/2017 Appointment: Valerie Pisano WPtel: [phone] [facility] (15 min) Moderate 02/09/2017 Patient Education: Patient [...] for nystatin 10/13/2016 Appointment: Valerie Pisano WPtel: [facility]8 [facility] (15 min) Moderate 10/13/2016 Patient Education: Patient Medication Summary Completed 10/13/2016 Patient Education: Obesity Completed 10/13/2016 Patient Education: Hypertension Completed 10/13/2016 Care Plan: Urine Culture Pending 08/31/2016 Appointment: Roxie Cazares WPtel: [facility]9 [facility]6[address] Lab Draw 08/27/2016 Appointment: Nurse Visit 08/26/2016 [...] spray. 07/31/2016 Appointment: Brielle Cavazos WPtel: [phone] (30 min) Complex 07/31/2016 Patient Education: Patient Medication Summary Completed 07/31/2016 Patient Education: Obesity Completed 07/31/2016 Visit Plan: Sinusitis - Pt has acut e infection - pain in face, maxillary region, Pt informed to use decongestant, RX given to patient, sinus rinses also recommended. Call if symptoms do not show improvement. 07/22/2016 Appointment: [facility]ano [facility]Ptel[phone] [facility] (15 min) Moderate 07/22/2016 Patient Education: [...] edema. 05/01/2016 Appointment: Brielle Cavazos WPtel: [phone] [phone] (30 min) Complex 05/01/2016 Patient Education: [...] edema. 04/06/2016 Appointment: Roxie Cazares WPtel: [facility]8 [facility] (30 min) Complex 04/06/2016 Patient Education: Patient Medication Summary Completed 04/06/2016 Patient Education: Obesity Completed 04/06/2016 Visit Plan: left foot - improved - pt finished with antibiotics - continue to monitor - notify clinic with any concerns. Repeat INR today. 03/10/2016 Appointment: Brielle Cavazos WPtel: [facility]5 [phone] (30 min) Complex 03/10/2016 Patient Education: Patient Medication Summary Completed 03/10/2016 Visit Plan: Cellulitis - continue w ith oral antibiotics as previously directed, return to clinic as previously directed, call for acute change in symptoms, worsening redness, warmth, discharge. 03/06/2016 Appointment: Brielle Cavazos WPtel: [facility]5 [phone] (15 min) Moderate 03/06/2016 Patient Education: Patient Medication Summary Completed 03/06/2016 Patient Education: Obesity Completed 03/06/2016 Visit Plan: Cellulitis - continue w ith oral antibiotics as previously directed, return to clinic as previously directed, call for acute change in symptoms, worsening redness, warmth, discharge. 03/03/2016 Appointment: Brielle Cavazos WPtel: [facility]2 [phone] (15 min) Moderate 03/03/2016 Patient Education: Patient [...] and 3.5. 02/07/2016 Appointment: Brielle Cavazos WPtel: [address] [place], [place] [phone] (30 min) Complex 02/07/2016 Patient Education: Patient Medication Summary Completed 02/07/2016 Patient Education: Obesity Completed 02/07/2016 Patient Education: Hypertension Completed 02/07/2016 Appointment: Brielle Cavazos WPtel: [address] [place], [place] [phone] (30 min) Complex 02/04/2016 Visit Plan: Iliotibial [...] peripheral edema. 12/13/2015 Appointment: Brielle Cavazos WPtel: [address] [place], [place] [phone] (15 min) Moderate 12/13/2015 Patient Education: Patient [...] home. 12/03/2015 Appointment: Brielle Cavazos WPtel: [facility]7 [phone] (30 min) [facility] 12/03/2015 Patient Education: Patient Medication Summary Completed [...] Hypertension Completed 02/05/2015 Appointment: Valerie Pisano WPtel: [address] [place] [address] (15 min) Moderate 01/29/2015 Visit Plan: Hypertension [...] of control. 11/20/2014 Appointment: Valerie Pisano WPtel: [address] [place], [place] [phone] [place] ([place]) New Patient 11/20/2014 Patient Education: Patient Medication Summary Completed 11/20/2014 Patient Education: Hypertension Completed 11/20/2014 Patient Education: Patient Medication Summary Completed 10/19/2014 Referral: [facility] WPtel: Referral Appointment Requested Referral: [facility] WPtel: [address] Referral Appointment Confirmed Instructions Comment . Hypertension [...] back to one pill twice daily. . Atrial Fibrillatio n - pt on [...] of control. prevnar and flu shot today Monitor your blood p ressure at home [...] Kenalog injection today in the office. . Edema - pt has bee n [...] for tetanus booster. . left foot - formerly [facility] ed - pt finished with antibiotics - continue to monitor - notify clinic with any concerns. Repeat INR today. decrease the coumadi n to 4mg daily [...] elevated - decrease coumadin to 4mg daily. CHECK LABS TODAY-WE WILL CALL YOU AFTER [...] muscles. allergies - kenalog 40mg im bristol Tynker squibb - lot # [id number] expires september 2018 . Edema - pt [...] and advanced age Pneumovax 23 given today. Decrease to 2.5mg (1 /2 tab) on [...] for INR is between 2.0 and 3.5. . Hypertension - wel l controlled - [...] spray in the nasal steroid allergy spray. Increase Lasix to tw ice a day [...] months based on previous levels of control. newton cabello or david while on the [...] change in symptoms, worsening redness, warmth, discharge. get blood work one w [facility] before next appt - fasting labs Decrease [...] of leg - rx for nystatin . Cellulitis - daylin nue with oral [...]
--- OUTSIDE RECORDS SUMMARY | 2019-09-12 11:42 | XMS REPORT | CCD ---
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 Name Role Phone PP Unavailable CCM Unavailable Summary Purpose Interface Exchange Insurance Providers Payer name Policy type / Coverage type Covered republican ID Effective Begin Date Effective End Date WPS Medicare Part B Medicare Part B [id number] Unknown [employer] Medicare Part B [id number] Unknown Family history Sister Diagnosis Age At Onset defect Unknown Breast cancer Unknown Daughter Diagnosis Age At Onset Breast cancer Unknown Mother Diagnosis Age At Onset No Family Disease Entered N/A Social History Social History Element Codes Description Effective Dates Marital status Unknown M arried Lane 11/20/2014 Number of children Unknown 6 11/20/2014 Employment Unknown Retir ed 11/20/[address]: 3993033 Quit over 10 years ago 1963 11/20/2014 Alcohol history Unknown occasionally drinks alcohol 11/20/2014 Allergies, Adverse Reactions, Alerts Substance Reaction Codes Entered Date Inactivated Date Status SULFA(SULFONAMIDE AN TIBIOTICS) rash Unknown 11/20/2014 No Inactive Date Active Past Medical History Illness Codes Condition Status Onset Date Resolved Date Encounter for screen ing mammogram for malignant neoplasm of breast ICD-9: V76.12 ICD-10: Z12.31 Active 07/29/2018 Unknown Atrophy of thyroid ( acquired) ICD-9: 244.8 ICD-10: E03.4 Active 02/09/2017 Unknown Chronic atrial fibri llation ICD-9: 427.31 ICD-10: I48.2 Active 02/06/2016 Unknown Essential (primary) hypertension ICD-9: 401.9 ICD-10: I10 Active 04/30/2016 Unknown Hypothyroidism, unsp ecified ICD-9: 244.9 ICD-10: [...] ICD-9: 883.0 ICD-10: S61.218A Active 04/01/2017 Unknown half-way (current) use of anticoagulants ICD-9: V58.61 ICD-10: Z79.01 Active 02/06/2016 Unknown Other specified hypo thyroidism ICD-9: 244.8 [...] Unknown HYPOTHYROIDISM ICD-9: 244.9 Active 11/19/2014 Unknown 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 ICD-9: V58.61 Active 10/19/2014 Unknown Problems Condition Codes Effectiv e Dates Condition Status Encounter for screen ing mammogram for malignant neoplasm of breast ICD-9: V76.12 ICD-10: Z12.31 07/29/2018 Active Atrophy of thyroid ( acquired) ICD-9: 244.8 ICD-10: E03.4 02/09/2017 Active Chronic atrial fibri llation ICD-9: 427.31 ICD-10: I48.2 02/06/2016 Active Essential (primary) hypertension ICD-9: 401.9 ICD-10: I10 04/30/2016 Active Hypothyroidism, unsp ecified ICD-9: 244.9 ICD-10: [...] encounter ICD-9: 883.0 ICD-10: S61.218A 04/01/2017 Active half-way (current) use of anticoagulants ICD-9: V58.61 ICD-10: Z79.01 02/06/2016 Active Other specified hypo thyroidism ICD-9: 244.8 [...] 11/19/2014 Active HYPOTHYROIDISM ICD-9: 244.9 11/19/2014 Active half-way current us e of anticoagulant therapy ICD-9: V58.61 10/19/2014 Active Medications Medication Codes Instruc tions Start Date Stop Date Sta Fill Instructions levothyroxine 125 mc g tablet RxNorm: 713760 TAKE ONE TABLET BY MO U[facility] DAILY ON WEDNESDAY, WED, AND WEDNESDAY, AND 1/2 TABLET ON , , WED AND WEDNESDAY. TAKE ON AN EMPTY STOMACH 08/04/2018 04/30/2019 Active meclizine 25 mg tablet RxNorm: 108113 1 Tablet(s) PO TID as needed Dizziness 07/22/2018 No Stop Date Active meclizine 25 mg tablet RxNorm: 553734 1 Tablet(s) PO TID as needed Dizziness 07/19/2018 07/21/2018 In active Coumadin 4 mg tablet RxNorm: 142665 1 Tablet(s) PO daily except 1.5 pills on WEDNESDAY AND Wednesday07/11/2018 07/05/2019 Active this is an update to her RX - she will let you know when she needs refill furosemide 40 mg tablet RxNorm: 907374 1 Tablet(s) BID take 1.5 tabs twice a da y x 7 days then 1 pill daily thereafter 07/11/2018 02/05/2019 Active warfarin 5 mg tablet RxNorm: 456589 Tablet(s) TAKE ONE TABLET BY MOUTH DAILY EXCEPT T/TH TAKE 4 MG 04/06/2018 08/22/2019 Active diltiazem 60 mg tablet RxNorm: 811473 1/2 Tablet(s) PO QID 03/24/2018 No Stop Date Active levothyroxine 125 mc g tablet RxNorm: 078843 TAKE ONE TABLET BY [facility] DAILY ON WEDNESDAY, WED, AND WEDNESDAY, AND 1/2 TABLET ON , , WED AND WEDNESDAY. TAKE ON AN EMPTY STOMACH 02/02/2018 07/31/2018 Inactive Coumadin 4 mg tablet RxNorm: 345936 TAKE ONE TABLET BY MOUTH DAILY ON AND Wednesday10/14/2017 07/10/2018 Inactive nystatin 100,000 uni t/gram topical cream RxNorm: 937734 1 Application TOP TID 08/17/2017 No Stop Date Active triamcinolone aceton sreekanth 0.025 % topical cream RxNorm: 7259819 1 Application TOP BI D 08/17/2017 No Stop Date Active Voltaren 1 % topical gel RxNorm: 599204 2 Gram(s) TOP TID luiz ly to shoulder and neck 08/17/2017 No Stop Date Active levothyroxine 125 mc g tablet RxNorm: 007775 1 Tablet(s) UD 1 pill wed/wed/wed, 1/2 pill //sat/sun take ON AN EMPTY STOMACH 08/05/2017 02/01/2018 Inactive Coumadin 4 mg tablet RxNorm: 921826 1 Tablet(s) PO Wed/07/29/2017 10/13/2017 Inactive warfarin 5 mg tablet RxNorm: 249693 TAKE 1 AND 1/2 TABLETS BY MOUTH ON AND WEDNESDAY. TAKE ONLY 1 TABLET BY MOUTH ALL OTHER DAYS OF THE WEEK 07/12/2017 04/05/2018 In active furosemide 40 mg tablet RxNorm: 913844 Tablet(s) BID TAKE ONE TABLET BY MOUTH D AILY 06/15/2017 07/10/2018 Inactive Voltaren 1 % topical gel RxNorm: 407619 2 Gram(s) TOP TID luiz ly to shoulder and neck 06/15/2017 08/16/2017 Inactive Keflex 500 mg capsule RxNorm: 433120 1 Capsule(s) PO TID 04/01/2017 04/07/2017 Inactive furosemide 40 mg tablet RxNorm: 011103 TAKE ONE TABLET BY MOUTH DAILY 03/18/2017 06/14/2017 In active Claritin-D 12 Hour 5 mg-120 mg tablet,extended release RxNorm: 5976483 1 Tablet(s) PO BID 03/16/2017 05/14/2017 Inactive Lipitor 20 mg tablet RxNorm: 634454 1 Tablet(s) PO daily 02/09/2017 03/10/2017 Inactive lisinopril 2.5 mg ta blet RxNorm: 083178 1 Tablet(s) PO daily 02/09/2017 03/10/2017 Inactive Nasonex 50 mcg/actua tion [place] RxNorm: 5639482 1 [place] NASAL BID 02/09/2017 09/06/2017 Inactive levothyroxine 125 mc g tablet RxNorm: 183532 1 Tablet(s) UD 1 pill wed/wed/wed, 1/2 pill //sat/sun take ON AN EMPTY STOMACH 02/09/2017 08/04/2017 Inactive fluorouracil 5 % top ical cream RxNorm: 170223 1 Application TOP BID 02/09/2017 02/18/2017 Inactive potassium chloride E R 20 mEq tablet,extended release RxNorm: 495742 Tablet(s) TAKE ONE TABLET BY MOUTH DAILY 02/08/2017 02/02/2018 Inactive warfarin 5 mg tablet RxNorm: 752626 TAKE 1 AND 1/2 TABLETS BY MOUTH ON AND WEDNESDAY. TAKE ONLY 1 TABLET BY MOUTH ALL OTHER DAYS OF THE WEEK 12/14/2016 05/30/2017 In active potassium chloride E R 20 mEq tablet,extended release RxNorm: 425191 TAKE ONE TABLET BY MOUTH DAILY 10/29/2016 01/26/2017 Inactive warfarin 5 mg tablet RxNorm: 117173 TAKE 1 AND 1/2 TABLETS BY MOUTH ON AND WEDNESDAY. TAKE ONLY 1 TABLET BY MOUTH ALL OTHER DAYS OF THE WEEK 10/27/2016 12/13/2016 In active nystatin 100,000 uni t/gram topical cream RxNorm: 824260 1 Application TOP TID 10/13/2016 08/16/2017 In active nitrofurantoin 50 mg capsule RxNorm: 436748 1 Capsule(s) PO BID 09/04/2016 09/03/2016 Inactive nitrofurantoin macro crystal 50 mg capsule RxNorm: 252823 1 Capsule(s) PO BID 09/04/2016 09/10/2016 In active Cipro 500 mg tablet RxNorm: 239028 1 Tablet(s) PO BID 08/26/2016 10/12/2016 Inactive Zyrtec 10 mg tablet RxNorm: 2045871 1 Tablet(s) PO daily 07/31/2016 08/29/2016 Inactive prednisone 20 mg tablet RxNorm: 122472 2 Tablet(s) PO daily 07/31/2016 08/02/2016 Inactive Kenalog 40 mg/mL zohra pension for injection RxNorm: 2187909 Milliliter(s) Inj 07/22/2016 07/22/2016 In active ceftriaxone 500 mg s olution for injection RxNorm: 5298518 Inj 07/22/2016 07/22/2016 Inactive Flonase Allergy Reli ef 50 mcg/actuation nasal spray,suspension RxNorm: 7891859 1 [place] NASAL BID 07/22/2016 08/20/2016 Inactive azithromycin 250 mg tablet RxNorm: 161133 2 Tablet(s) PO on day #1, then 1 pill daily x 4 days 07/22/2016 10/12/2016 Inactive warfarin 5 mg tablet RxNorm: 850660 TAKE 1 AND 1/2 TABLETS BY MOUTH ON AND WEDNESDAY. TAKE ONLY 1 TABLET BY MOUTH ALL OTHER DAYS OF THE WEEK 07/09/2016 09/30/2016 In active levothyroxine 125 mc g tablet RxNorm: 512953 Tablet(s) TAKE ONE TA BLET BY MOUTH DAILY ON AN EMPTY STOMACH 06/23/2016 02/08/2017 Inactive levothyroxine 125 mc g tablet RxNorm: 516717 TAKE ONE TABLET BY MO U[facility] DAILY ON AN EMPTY STOMACH 06/23/2016 06/22/2016 Inactive levothyroxine 125 mc g tablet RxNorm: 804533 TAKE ONE TABLET BY MO UTH DAILY ON AN EMPTY STOMACH 06/23/2016 08/04/2017 Inactive cetirizine 10 mg tablet RxNorm: 7894263 TAKE ONE TABLET BY MOUTH DAILY 06/16/2016 10/13/2016 In active furosemide 40 mg tablet RxNorm: 871931 Tablet(s) TAKE ONE TABLET BY MOUTH DAILY 06/05/2016 12/01/2016 In active cetirizine 10 mg tablet RxNorm: 6310533 1 Tablet(s) PO daily 05/01/2016 05/30/2016 Inactive Levaquin 250 mg tablet RxNorm: 512968 Tablet(s) PO 2 pills day one and 1 pill day 2-7 04/06/2016 07/21/2016 Inactive warfarin 5 mg tablet RxNorm: 598054 Tablet(s) 1/2 TABLETS BY MOUTH ON AND WEDNESDAY. TAKE ONLY 1 TABLET BY MOUTH ALL OTHER DAYS OF THE WEEK 03/18/2016 07/07/2016 In active triamcinolone aceton sreekanth 0.025 % topical cream RxNorm: 0120987 1 Application TOP BI D 03/10/2016 08/16/2017 In active potassium chloride E R 20 mEq tablet,extended release RxNorm: 733024 1 Tablet(s) PO daily 03/04/2016 06/01/2016 Inactive Levaquin 250 mg tablet RxNorm: 632714 Tablet(s) PO 2 pills day one and 1 pill day 2-7 03/04/2016 04/05/2016 Inactive Levaquin 250 mg tablet RxNorm: 219233 Tablet(s) PO 2 pills day one and 1 pill day 2-7 03/03/2016 03/03/2016 Inactive potassium chloride E R 20 mEq tablet,extended release RxNorm: 528701 1 Tablet(s) PO daily 03/03/2016 03/03/2016 Inactive Cipro 500 mg tablet RxNorm: 555776 1 Tablet(s) PO BID 02/20/2016 07/21/2016 Inactive Cipro 500 mg tablet RxNorm: 945483 1 Tablet(s) PO BID 02/20/2016 02/19/2016 Inactive furosemide 40 mg tablet RxNorm: 749423 TAKE ONE TABLET BY MOUTH DAILY 01/27/2016 01/26/2016 In active warfarin 5 mg tablet RxNorm: 630437 TAKE 1 AND 1/2 TABLETS BY MOUTH ON AND WEDNESDAY. TAKE ONLY 1 TABLET BY MOUTH ALL OTHER DAYS OF THE WEEK 01/27/2016 01/26/2016 In active furosemide 40 mg tablet RxNorm: 253668 TAKE ONE TABLET BY MOUTH DAILY 01/27/2016 06/04/2016 In active warfarin 5 mg tablet RxNorm: 117468 TAKE 1 AND 1/2 TABLETS BY MOUTH ON AND WEDNESDAY. TAKE ONLY 1 TABLET BY MOUTH ALL OTHER DAYS OF THE WEEK 01/27/2016 03/17/2016 In active potassium chloride E R 20 mEq tablet,extended release RxNorm: 867942 1 Tablet(s) PO daily 11/20/2015 03/02/2016 Inactive furosemide 40 mg tablet RxNorm: 105658 TAKE ONE TABLET BY MOUTH DAILY 11/12/2015 01/26/2016 In active Zovirax 5 % topical cream RxNorm: 916346 TOP QID 0 09/24/2015 09/23/2015 Inactive Zovirax 5 % topical cream RxNorm: 855756 TOP QID 0 09/24/2015 11/19/2015 Inactive nystatin 100,000 uni t/gram topical cream RxNorm: 206038 1 Application TOP TID 09/17/2015 10/12/2016 In active warfarin 5 mg tablet RxNorm: 006466 TAKE 1 AND 1/2 TABLETS BY MOUTH ON AND WEDNESDAY. TAKE ONLY 1 TABLET BY MOUTH ALL OTHER DAYS OF THE WEEK 08/19/2015 01/05/2016 In active loratadine 10 mg tablet RxNorm: 537619 1 Tablet(s) PO daily 07/30/2015 07/23/2016 Inactive loratadine 10 mg tablet RxNorm: 489239 1 Tablet(s) PO daily 07/30/2015 07/29/2015 Inactive furosemide 40 mg tablet RxNorm: 223745 TAKE ONE TABLET BY MOUTH DAILY 06/24/2015 11/11/2015 In active levothyroxine 125 mc g tablet RxNorm: 804741 1 Tablet(s) PO daily 05/31/2015 05/24/2016 Inactive furosemide 40 mg tablet RxNorm: 869038 1 Tablet(s) PO daily 04/05/2015 06/23/2015 Inactive warfarin 5 mg tablet RxNorm: 768983 TAKE 1 AND 1/2 TABLETS BY MOUTH ON AND WEDNESDAY. TAKE ONLY 1 TABLET BY MOUTH ALL OTHER DAYS OF THE WEEK 02/12/2015 07/29/2015 In active Flonase Allergy Reli ef 50 mcg/actuation nasal spray,suspension RxNorm: 2 [place] NASAL daily 02/05/2015 03/06/2015 Inactive Kenalog 40 mg/mL zohra pension for injection RxNorm: 9926128 Milliliter(s) Inj 02/05/2015 02/05/2015 In active warfarin 5 mg tablet RxNorm: 993124 Take 7.5mg (1 1/2 tablets) Wednesday and and 1 Tablet(s) PO (5mg) all other days 01/11/2015 02/09/2015 Inactive levothyroxine 125 mc g tablet RxNorm: 358330 1 Tablet(s) PO every other day 01/01/2015 05/30/2015 In active alternate with 150 levothyroxine 150 mc g tablet RxNorm: 971489 1 Tablet(s) PO every other day 01/01/2015 05/30/2015 In active alternate with 125 loratadine 10 mg tablet RxNorm: 230005 Tablet(s) PO as needed No Start Date Active Fish Oil 1,000 mg ca psule RxNorm: 1 Capsule(s) PO TID No Start Date Active magnesium 250 mg tablet RxNorm: 1 Tablet(s) PO daily No Start Date Active Vitamin D3 2,000 uni t tablet RxNorm: 993961 2 Tablet(s) PO daily No Start Date Active Fosamax 35 mg tablet RxNorm: 090442 1 Tablet(s) PO QW No Start Date Active levothyroxine 125 mc g tablet RxNorm: 565959 1 Tablet(s) PO daily No Start Date 12/31/2014 Inactive levothyroxine 150 mc g tablet RxNorm: 364354 1 Tablet(s) PO daily No Start Date 12/31/2014 Inactive diltiazem 60 mg tablet RxNorm: 037410 1 Tablet(s) PO QID No Start Date 03/23/2018 Inactive meclizine 25 mg tablet RxNorm: 485712 1 Tablet(s) PO TID as needed Dizziness No Start Date 07/18/2018 Inactive furosemide 40 mg tablet RxNorm: 130002 1 Tablet(s) PO daily No Start Date 04/04/2015 Inactive potassium chloride RxNorm: miscellaneous No Start Date 11/19/2015 Inactive Vitamin D2 oral RxNorm: 4018 oral No Start Date 05/31/2015 Inactive warfarin 5 mg tablet RxNorm: 370603 1 Tablet(s) PO daily No Start Date 01/10/2015 Inactive Coumadin 4 mg tablet RxNorm: 178392 1 Tablet(s) PO Wed/ No Start Date 07/28/2017 Inactive Medication Administered Medication Codes Instruc tions Start Date Status Kenalog 40 mg/mL suspension for injection RxNorm: 2185899 Milliliter 07/22/2016 No longer Active ceftriaxone 500 mg solution for injection RxNorm: 3526791 07/22/2016 No longer A ctive Kenalog 40 mg/mL suspension for injection RxNorm: 8009943 Milliliter 02/05/2015 No longer Active Immunizations Vaccine Codes Date Status Influenza CVX: 141 03/24 completed Pneumococcal (Adult) CVX: 33 03/24/2018 completed Influenza CVX: 141 03/16 completed Pneumococcal (Adult) CVX: 133 03/16/2017 completed Influenza CVX: 141 05/06 completed Influenza CVX: 141 04/28 completed Pneumococcal CVX: 33 06/1999 completed Assessments Condition Codes Effectiv e Dates Encounter for screening mammogram for ma lignant neoplasm of breast ICD-10: Z12.31 ICD-9: V76.12 07/29/2018 Essential (primary) hypertension ICD -10: I10 ICD-9: 401.9 07/11/2018 Atrophy of thyroid (acquired) ICD-10 : E03.4 ICD-9: 244.8 07/11/2018 Other fatigue ICD-10: R53.83 ICD-9: 780.79 07/11/2018 Localized edema ICD-10: R60.0 ICD-9: 782.3 07/11/2018 Chronic atrial fibrillation ICD-10: I48.2 ICD-9: 427.31 07/11/2018 Hypothyroidism, unspecified ICD-10: E03.9 ICD-9: 244.9 07/11/2018 Abnormal results of kidney function studies ICD-10: R94.4 ICD-9: 794.4 06/30/2018 Encounter for immunization ICD-10: Z 23 ICD-9: V03.9 03/24/2018 Cervicalgia ICD-10: M54.2 ICD-9: 723.1 06/15/2017 Other muscle spasm ICD-10: M62.838 ICD-9: 728.85 06/15/2017 Laceration without foreign body of other finger without damage to nail, initial encounter ICD-10: S61.218A ICD-9: 883.0 04/01/2017 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 ICD-9: V58.61 03/16/2017 Tinea corporis ICD-10: B35.4 ICD-9: 110.5 10/13/2016 [...] 244.9 11/20/2014 ACTINIC KERATOSIS ICD-9: 702.0 11/20/2014 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 ICD-9: V58.61 10/19/2014 Reason For Visit Reason For Visit Effective Dates Notes hypertension 07/11/2018 hypertension 03/24/2018 hypertension 11/18/2017 edema [...] Code Item Item Code Result Date Pt Vrh5142 PT 30.9 seconds 08/16/2018 Pt Iaj1847 INR 3.0 08/16/2018 Pt Glh4599 Low Intensity - 1.5-2.0 08/16/2018 Pt Ajt9792 Mod intensity - 2.0-3.0 08/16/2018 Pt Dyw0381 Hi intensity - 3.0-4.0 08/16/2018 Pt Igz9556 PT 29.5 seconds 08/01/2018 Pt Rog2198 INR 2.8 08/01/2018 Pt Tpt3917 Low Intensity - 1.5-2.0 08/01/2018 Pt Plr9419 Mod intensity - 2.0-3.0 08/01/2018 Pt Ctt8968 Hi intensity - 3.0-4.0 08/01/2018 Pt Lvm8230 PT 24.2 seconds 07/25/2018 Pt Xgh2373 INR 2.2 07/25/2018 Pt Sfv0000 Low Intensity - 1.5-2.0 07/25/2018 Pt Lpc1068 Mod intensity - 2.0-3.0 07/25/2018 Pt Gpw3769 Hi intensity - 3.0-4.0 07/25/2018 Pt Odb7978 PT 38.6 seconds 07/19/2018 Pt Pfu4482 INR 4.0 07/19/2018 Pt Vtd2192 Low Intensity - 1.5-2.0 07/19/2018 Pt Sdf7408 Mod intensity - 2.0-3.0 07/19/2018 Pt Tvi3235 Hi intensity - 3.0-4.0 07/19/2018 Pt Hyb1622 PT 25.7 seconds 07/11/2018 Pt Jxm0158 INR 2.4 07/11/2018 Pt Tfr7685 Low Intensity - 1.5-2.0 07/11/2018 Pt Ipq3975 Mod intensity - 2.0-3.0 07/11/2018 Pt Oxp2292 Hi intensity - 3.0-4.0 07/11/2018 Pt Mib9620 PT 18.5 seconds 07/08/2018 Pt Hou8958 INR 1.6 07/08/2018 Pt Ccv9071 Low Intensity - 1.5-2.0 07/08/2018 Pt Uci0501 Mod intensity - 2.0-3.0 07/08/2018 Pt Zlw8502 Hi intensity - 3.0-4.0 07/08/2018 Pt Mxk6735 PT 27.3 seconds 06/29/2018 Pt Xws8946 INR 2.6 06/29/2018 Pt Jrj7781 Low Intensity - 1.5-2.0 06/29/2018 Pt Nhu9124 Mod intensity - 2.0-3.0 06/29/2018 Pt Ish9303 Hi intensity - 3.0-4.0 06/29/2018 Pt Lzk0123 PT 24.0 seconds 05/26/2018 Pt Qwd9886 INR 2.2 05/26/2018 Pt Ubc0705 Low Intensity - 1.5-2.0 05/26/2018 Pt Cae1421 Mod intensity - 2.0-3.0 05/26/2018 Pt Zvq2256 Hi intensity - 3.0-4.0 05/26/2018 Tsh Ord6 [...] 29.6 pg 03/25/2018 Cbc With Differential Ord2 [place]% 9.5 % 03/25/2018 Cbc With Differential Ord2 [...] 2.19 K/ul 03/25/2018 Cbc With Differential Ord2 [place] ABS# 0.8 K/ul 03/25/2018 Cbc With Differential Ord2 Eos ABS# 0.3 K/ul 03/25/2018 Cbc With Differential Ord2 Baso ABS# 0.0 K/ul 03/25/2018 Lipid Ord30 CHOL 156 mg/dL 03/25/2018 Lipid Ord30 HDL 52.0 mg/dl 03/25/2018 Lipid Ord30 TRIG 98 mg/dL 03/25/2018 Lipid Ord30 LDL 84 mg/dL 03/25/2018 Lipid Ord30 C/HDL 3.0 Ratio 03/25/2018 Free T4 Ybn888 FREE T4 1.73 ng/dL 03/25/2018 Comp Metabolic Xuh104 NA 143 mEq/L 03/25/2018 Comp Metabolic Pim557 K 4.6 mEq/L 03/25/2018 Comp Metabolic Zha323 CL 108 mEq/L 03/25/2018 Comp Metabolic Joe433 CO2 26.0 mEq/L 03/25/2018 Comp Metabolic Xzv429 AN ION GAP 14 03/25/2018 Comp Metabolic Ggt236 GL UCOSE 87 mg/dL 03/25/2018 Comp Metabolic Kfy149 Cr eat 1.2 mg/dL 03/25/2018 Comp Metabolic Tml878 eG FR 48 ml/min/1.73m2 03/25 Comp Metabolic Qim282 BUN 18 mg/dL 03/25/2018 Comp Metabolic Kge518 B/ C Ratio 15.5 Ratio 03/25/2018 Comp Metabolic Mbv341 CA LCIUM 9.1 mg/dL 03/25/2018 Comp Metabolic Znc887 AL K PHOS 58 U/L 03/25/2018 Comp Metabolic Ytz378 T(SGOT) 21 U/L 03/25/2018 Comp Metabolic Alk474 AL T(SGPT) 13 U/L 03/25/2018 Comp Metabolic Cue994 BI LI T 0.7 mg/dL 03/25/2018 Comp Metabolic Anm932 AL BUMIN 3.2 g/dL 03/25/2018 Comp Metabolic Sws979 TP RO 5.5 g/dL 03/25/2018 Comp Metabolic Fbj616 GL OB 2.3 g/dL 03/25/2018 Comp Metabolic Jmn342 A/ G Ratio 1.4 Ratio 03/25/2018 Comp Metabolic Hki961 Os mo 286 mOsmo 03/25/2018 Pt Ulj5481 PT 29.0 seconds 03/22/2018 Pt Yeg4608 INR 2.7 03/22/2018 Pt Xxe3213 Low Intensity - 1.5-2.0 03/22/2018 Pt Xxm7376 Mod intensity - 2.0-3.0 03/22/2018 Pt Fae5303 Hi intensity - 3.0-4.0 03/22/2018 Pt Bhn0505 PT 27.1 seconds 02/25/2018 Pt Hgy4131 INR 2.5 02/25/2018 Pt Qwl0715 Low Intensity - 1.5-2.0 02/25/2018 Pt Lgm2676 Mod intensity - 2.0-3.0 02/25/2018 Pt Fur4039 Hi intensity - 3.0-4.0 02/25/2018 Pt Ael3444 PT 26.1 seconds 01/26/2018 Pt Ygh2351 INR 2.4 01/26/2018 Pt Ozv6509 Low Intensity - 1.5-2.0 01/26/2018 Pt Kyp1298 Mod intensity - 2.0-3.0 01/26/2018 Pt Wse6174 Hi intensity - 3.0-4.0 01/26/2018 Pt Gbs4981 PT 22.8 seconds 12/24/2017 Pt Ult3085 INR 2.0 12/24/2017 Pt Zlf6639 Low Intensity - 1.5-2.0 12/24/2017 Pt Fbp9251 Mod intensity - 2.0-3.0 12/24/2017 Pt Gbn8726 Hi intensity - 3.0-4.0 12/24/2017 Pt Bhf4443 PT 29.4 seconds 11/18/2017 Pt Ibw5612 INR 2.8 11/18/2017 Pt Kgv3264 Low Intensity - 1.5-2.0 11/18/2017 Pt Vwk4650 Mod intensity - 2.0-3.0 11/18/2017 Pt Jar2871 Hi intensity - 3.0-4.0 11/18/2017 Pt Mdd9553 PT 26.6 seconds 09/13/2017 Pt Pxm7039 INR 2.4 09/13/2017 Pt Wch0865 Low Intensity - 1.5-2.0 09/13/2017 Pt Fob0278 Mod intensity - 2.0-3.0 09/13/2017 Pt Kwt2306 Hi intensity - 3.0-4.0 09/13/2017 Pt Hus1349 PT 28.2 seconds 08/10/2017 Pt Gxv4093 INR 2.6 08/10/2017 Pt Pfq3321 Low Intensity - 1.5-2.0 08/10/2017 Pt Frr9663 Mod intensity - 2.0-3.0 08/10/2017 Pt Mbr2539 Hi intensity - 3.0-4.0 08/10/2017 Pt Mjl8141 PT 33.9 seconds 07/27/2017 Pt Kad8479 INR 3.3 07/27/2017 Pt Wqr1226 Low Intensity - 1.5-2.0 07/27/2017 Pt Icy9851 Mod intensity - 2.0-3.0 07/27/2017 Pt Mgz7596 Hi intensity - 3.0-4.0 07/27/2017 Pt Dwy6791 PT 29.1 seconds 06/29/2017 Pt Ypl7631 INR 2.7 06/29/2017 Pt Vmi0108 Low Intensity - 1.5-2.0 06/29/2017 Pt Vka2617 Mod intensity - 2.0-3.0 06/29/2017 Pt Jko6303 Hi intensity - 3.0-4.0 06/29/2017 Pt Ftb9104 PT 30.3 seconds 06/11/2017 Pt Dfn2393 INR 2.9 06/11/2017 Pt Yeh7229 Low Intensity - 1.5-2.0 06/11/2017 Pt Xsp2846 Mod intensity - 2.0-3.0 06/11/2017 Pt Nki9138 Hi intensity - 3.0-4.0 06/11/2017 Pt Jqi6856 PT 39.1 seconds 06/07/2017 Pt Wlh8191 INR 3.9 06/07/2017 Pt Fkf8844 Low Intensity - 1.5-2.0 06/07/2017 Pt Luk8356 Mod intensity - 2.0-3.0 06/07/2017 Pt Dlm2969 Hi intensity - 3.0-4.0 06/07/2017 Pt Jtu5550 PT 34.2 seconds 05/26/2017 Pt Ttp4708 INR 3.3 05/26/2017 Pt Awv1961 Low Intensity - 1.5-2.0 05/26/2017 Pt Fcg0352 Mod intensity - 2.0-3.0 05/26/2017 Pt Vje1234 Hi intensity - 3.0-4.0 05/26/2017 Comp Metabolic Wwb424 NA 138 mEq/L 04/23/2017 Comp Metabolic Cql109 K 4.2 mEq/L 04/23/2017 Comp Metabolic Kcx157 CL 101 mEq/L 04/23/2017 Comp Metabolic Qsx439 CO2 28.0 mEq/L 04/23/2017 Comp Metabolic Ano014 AN ION GAP 13 04/23/2017 Comp Metabolic Eeb495 GL UCOSE 89 mg/dL 04/23/2017 Comp Metabolic Mot655 Cr eat 1.1 mg/dL 04/23/2017 Comp Metabolic Dqr298 eG FR 51 ml/min/1.73m2 04/23 Comp Metabolic Acv428 BUN 26 mg/dL 04/23/2017 Comp Metabolic Tuh129 B/ C Ratio 23.9 Ratio 04/23/2017 Comp Metabolic Hau531 CA LCIUM 9.4 mg/dL 04/23/2017 Comp Metabolic Tbb787 AL K PHOS 95 U/L 04/23/2017 Comp Metabolic Oqs608 T(SGOT) 18 U/L 04/23/2017 Comp Metabolic Tdo040 AL T(SGPT) 17 U/L 04/23/2017 Comp Metabolic Tjo621 BI LI T 0.7 mg/dL 04/23/2017 Comp Metabolic Ntq566 AL BUMIN 3.2 g/dL 04/23/2017 Comp Metabolic Dho631 TP RO 5.6 g/dL 04/23/2017 Comp Metabolic Nmh111 GL OB 2.4 g/dL 04/23/2017 Comp Metabolic Ejy758 A/ G Ratio 1.3 Ratio 04/23/2017 Comp Metabolic Qdn987 Os mo 280 mOsmo 04/23/2017 Pt Ocw8249 PT 28.6 seconds 04/23/2017 Pt Vom4641 INR 2.7 04/23/2017 Pt Pim5519 Low Intensity - 1.5-2.0 04/23/2017 Pt Bzf2199 Mod intensity - 2.0-3.0 04/23/2017 Pt Jus7799 Hi intensity - 3.0-4.0 04/23/2017 Pt Nog2362 PT 24.4 seconds 03/16/2017 Pt Wdj1559 INR 2.2 03/16/2017 Pt Hxh0465 Low Intensity - 1.5-2.0 03/16/2017 Pt Hlj2320 Mod intensity - 2.0-3.0 03/16/2017 Pt Fpx1849 Hi intensity - 3.0-4.0 03/16/2017 Pt Tsu3147 PT 28.2 seconds 02/24/2017 Pt Rkk4227 INR 2.6 02/24/2017 Pt Bws3477 Low Intensity - 1.5-2.0 02/24/2017 Pt Twq1560 Mod intensity - 2.0-3.0 02/24/2017 Pt Uui0639 Hi intensity - 3.0-4.0 02/24/2017 Pt Zht9685 PT 26.8 seconds 02/08/2017 Pt Xkq2997 INR 2.5 02/08/2017 Pt Kcu1720 Low Intensity - 1.5-2.0 02/08/2017 Pt Sjn9349 Mod intensity - 2.0-3.0 02/08/2017 Pt Sbu6123 Hi intensity - 3.0-4.0 02/08/2017 Lipid Ord30 CHOL 150 mg/dL 01/25/2017 Lipid Ord30 HDL 55.0 mg/dl 01/25/2017 Lipid Ord30 TRIG 66 mg/dL 01/25/2017 Lipid Ord30 LDL 82 mg/dL 01/25/2017 Lipid Ord30 C/HDL 2.7 Ratio 01/25/2017 Pt Gef3853 PT 29.9 seconds 01/25/2017 Pt Ycp9037 INR 2.8 01/25/2017 Pt Fly7377 Low Intensity - 1.5-2.0 01/25/2017 Pt Qon1958 Mod intensity - 2.0-3.0 01/25/2017 Pt Cct8488 Hi intensity - 3.0-4.0 01/25/2017 Comp Metabolic Atk152 NA 143 mEq/L 01/25/2017 Comp Metabolic Igc767 K 3.9 mEq/L 01/25/2017 Comp Metabolic Mra283 CL 108 mEq/L 01/25/2017 Comp Metabolic Xeh311 CO2 23.0 mEq/L 01/25/2017 Comp Metabolic Gqb318 AN ION GAP 16 01/25/2017 Comp Metabolic Jvx066 GL UCOSE 80 mg/dL 01/25/2017 Comp Metabolic Pzj946 Cr eat 1.0 mg/dL 01/25/2017 Comp Metabolic Jcc050 eG FR 57 ml/min/1.73m2 01/25 Comp Metabolic Pbv702 BUN 25 mg/dL 01/25/2017 Comp Metabolic Llx778 B/ C Ratio 25.0 Ratio 01/25/2017 Comp Metabolic Oas944 CA LCIUM 8.5 mg/dL 01/25/2017 Comp Metabolic Uuc986 AL K PHOS 81 U/L 01/25/2017 Comp Metabolic Onf019 T(SGOT) 19 U/L 01/25/2017 Comp Metabolic Bqo350 AL T(SGPT) 23 U/L 01/25/2017 Comp Metabolic Odr408 BI LI T 0.5 mg/dL 01/25/2017 Comp Metabolic Zme442 AL BUMIN 2.9 g/dL 01/25/2017 Comp Metabolic Uar014 TP RO 5.1 g/dL 01/25/2017 Comp Metabolic Ojy595 GL OB 2.2 g/dL 01/25/2017 Comp Metabolic Ypj944 A/ G Ratio 1.3 Ratio 01/25/2017 Comp Metabolic Nvl865 Os mo 288 mOsmo 01/25/2017 Cbc With [...] 30.7 pg 01/25/2017 Cbc With Differential Ord2 Sandoval% 8.2 % 01/25/2017 Cbc With Differential Ord2 [...] 3.10 K/ul 01/25/2017 Cbc With Differential Ord2 [place]oval ABS# 0.8 K/ul 01/25/2017 Cbc With Differential Ord2 Eos ABS# 0.4 K/ul 01/25/2017 Cbc With Differential Ord2 Baso ABS# 0.1 K/ul 01/25/2017 Free T4 Wau782 FREE T4 2.09 ng/dL 01/25/2017 Tsh Ord6 hTSH II 0.46 uIU/mL 01/25/2017 Pt Hsv3737 PT 26.1 seconds 11/26/2016 Pt Bxk0686 INR 2.6 11/26/2016 Pt Qda0253 Low Intensity - 1.5-2.0 11/26/2016 Pt Mzf7692 Mod intensity - 2.0-3.0 11/26/2016 Pt Kvx7594 Hi intensity - 3.0-4.0 11/26/2016 Pt Yvc5600 PT 26.2 seconds 10/29/2016 Pt Vvo3488 INR 2.6 10/29/2016 Pt Xoc4340 Low Intensity - 1.5-2.0 10/29/2016 Pt Qob7206 Mod intensity - 2.0-3.0 10/29/2016 Pt Edm9703 Hi intensity - 3.0-4.0 10/29/2016 Pt Ddh5542 PT 20.8 seconds 10/13/2016 Pt Emk8710 INR 1.9 10/13/2016 Pt Qtr4449 Low Intensity - 1.5-2.0 10/13/2016 Pt Jel2294 Mod intensity - 2.0-3.0 10/13/2016 Pt Oer8700 Hi intensity - 3.0-4.0 10/13/2016 Pt Wes0449 PT 26.5 seconds 10/01/2016 Pt Hfx6986 INR 2.6 10/01/2016 Pt Idy6427 Low Intensity - 1.5-2.0 10/01/2016 Pt Ruk1815 Mod intensity - 2.0-3.0 10/01/2016 Pt Muk3764 Hi intensity - 3.0-4.0 10/01/2016 Pt Rtd7854 PT 24.6 seconds 09/14/2016 Pt Ksd2303 INR 2.4 09/14/2016 Pt Czh7323 Low Intensity - 1.5-2.0 09/14/2016 Pt Mtj5674 Mod intensity - 2.0-3.0 09/14/2016 Pt Imn0664 Hi intensity - 3.0-4.0 09/14/2016 Pt Zqg1123 PT 18.0 seconds 09/07/2016 Pt Opl8176 INR 1.6 09/07/2016 Pt Ibb2359 Low Intensity - 1.5-2.0 09/07/2016 Pt Fbc3840 Mod intensity - 2.0-3.0 09/07/2016 Pt Tew5146 Hi intensity - 3.0-4.0 09/07/2016 Pt Gkh4927 PT 23.7 seconds 08/12/2016 Pt Dze4522 INR 2.2 08/12/2016 Pt Cad5768 Low Intensity - 1.5-2.0 08/12/2016 Pt Exj3955 Mod intensity - 2.0-3.0 08/12/2016 Pt Ovy3767 Hi intensity - 3.0-4.0 08/12/2016 Pt Jxp0769 PT 21.6 seconds 07/27/2016 Pt Rgh1796 INR 2.0 07/27/2016 Pt Kmz3488 Low Intensity - 1.5-2.0 07/27/2016 Pt Dyx2861 Mod intensity - 2.0-3.0 07/27/2016 Pt Kts7759 Hi intensity - 3.0-4.0 07/27/2016 Pt Ukb3520 PT 26.0 seconds 06/15/2016 Pt Cmu3623 INR 2.5 06/15/2016 Pt Mkj6019 Low Intensity - 1.5-2.0 06/15/2016 Pt Tlk4566 Mod intensity - 2.0-3.0 06/15/2016 Pt Qel7895 Hi intensity - 3.0-4.0 06/15/2016 Pt Gks8192 PT 18.8 seconds 06/01/2016 Pt Omu0065 INR 1.7 06/01/2016 Pt Bqe7645 Low Intensity - 1.5-2.0 06/01/2016 Pt Spn6971 Mod intensity - 2.0-3.0 06/01/2016 Pt Naj9360 Hi intensity - 3.0-4.0 06/01/2016 Pt Wpu8528 PT 20.8 seconds 05/12/2016 Pt Mej5720 INR 1.9 05/12/2016 Pt Sya0334 Low Intensity - 1.5-2.0 05/12/2016 Pt Rlp2553 Mod intensity - 2.0-3.0 05/12/2016 Pt Iof5155 Hi intensity - 3.0-4.0 05/12/2016 Pt Din2343 PT 24.5 seconds 04/10/2016 Pt Ixt4597 INR 2.4 04/10/2016 Pt Krb3743 Low Intensity - 1.5-2.0 04/10/2016 Pt Xhk5033 Mod intensity - 2.0-3.0 04/10/2016 Pt Qap0005 Hi intensity - 3.0-4.0 04/10/2016 Pt Wpj5195 PT 26.4 seconds 03/10/2016 Pt Ohe4725 INR 2.6 03/10/2016 Pt Vmn1626 Low Intensity - 1.5-2.0 03/10/2016 Pt Yxk1535 Mod intensity - 2.0-3.0 03/10/2016 Pt Mzb0940 Hi intensity - 3.0-4.0 03/10/2016 Pt Dlm6730 PT 24.9 seconds 03/06/2016 Pt Cgg2860 INR 2.4 03/06/2016 Pt Uht2103 Low Intensity - 1.5-2.0 03/06/2016 Pt Wct3765 Mod intensity - 2.0-3.0 03/06/2016 Pt Vad8523 Hi intensity - 3.0-4.0 03/06/2016 Pt Fpl9638 PT 21.9 seconds 02/25/2016 Pt Hgr3382 INR 2.0 02/25/2016 Pt Xtu6102 Low Intensity - 1.5-2.0 02/25/2016 Pt Oma2644 Mod intensity - 2.0-3.0 02/25/2016 Pt Myq3743 Hi intensity - 3.0-4.0 02/25/2016 Pt Smb2016 PT 21.8 seconds 02/21/2016 Pt Cje2206 INR 2.0 02/21/2016 Pt Ytj8243 Low Intensity - 1.5-2.0 02/21/2016 Pt Buf9846 Mod intensity - 2.0-3.0 02/21/2016 Pt Xqk7294 Hi intensity - 3.0-4.0 02/21/2016 Culture Urine [id number] URI NE CULTURE SEE NOTES 02/20/2016 Culture Urine [id number] Con tinued Results 02/20/2016 Urine Culture Ucult [...] 91.8 fl 02/14/2016 Cbc With Differential Ord2 Sandoval% 9.3 % 02/14/2016 Cbc With Differential Ord2 [...] 2.55 K/ul 02/14/2016 Cbc With Differential Ord2 [place]oval ABS# 0.8 K/ul 02/14/2016 Cbc With Differential Ord2 Eos ABS# 0.4 K/ul 02/14/2016 Cbc With Differential Ord2 Baso ABS# 0.1 K/ul 02/14/2016 Tsh Ord6 hTSH II 0.80 uIU/mL 02/14/2016 Pt Xpo6580 PT 27.1 seconds 02/14/2016 Pt Vhd1848 INR 2.7 02/14/2016 Pt Cpo5847 Low Intensity - 1.5-2.0 02/14/2016 Pt Trf0676 Mod intensity - 2.0-3.0 02/14/2016 Pt Kss2665 Hi intensity - 3.0-4.0 02/14/2016 Free T4 Izx147 FREE T4 1.87 ng/dL 02/14/2016 Comp Metabolic Yie405 NA 139 mEq/L 02/14/2016 Comp Metabolic Uki475 K 3.8 mEq/L 02/14/2016 Comp Metabolic Wed953 CL 103 mEq/L 02/14/2016 Comp Metabolic Uug764 CO2 27.0 mEq/L 02/14/2016 Comp Metabolic Yhr592 AN ION GAP 13 02/14/2016 Comp Metabolic Qex275 GL UCOSE 91 mg/dL 02/14/2016 Comp Metabolic Byt701 Cr eat 1.0 mg/dL 02/14/2016 Comp Metabolic Rvc541 eG FR 58 ml/min/1.73m2 02/13 Comp Metabolic Lgx282 BUN 16 mg/dL 02/14/2016 Comp Metabolic Hxg739 B/ C Ratio 16.2 Ratio 02/14/2016 Comp Metabolic Kff878 CA LCIUM 9.0 mg/dL 02/14/2016 Comp Metabolic Ihz648 AL K PHOS 88 U/L 02/14/2016 Comp Metabolic Gwl578 T(SGOT) 17 U/L 02/14/2016 Comp Metabolic Tlq568 AL T(SGPT) 12 U/L 02/14/2016 Comp Metabolic Kbf836 BI LI T 0.6 mg/dL 02/14/2016 Comp Metabolic Kup180 AL BUMIN 3.2 g/dL 02/14/2016 Comp Metabolic Vwk486 TP RO 5.8 g/dL 02/14/2016 Comp Metabolic Juy966 GL OB 2.6 g/dL 02/14/2016 Comp Metabolic Bza590 A/ G Ratio 1.3 Ratio 02/14/2016 Comp Metabolic Hem706 Os mo 278 mOsmo 02/14/2016 Pt Rrj6813 PT 34.6 seconds 02/06/2016 Pt Hbz1901 INR 3.7 02/06/2016 Pt Zcv8930 Low Intensity - 1.5-2.0 02/06/2016 Pt Jrt9945 Mod intensity - 2.0-3.0 02/06/2016 Pt Xal8277 Hi intensity - 3.0-4.0 02/06/2016 Pt Esx3338 PT 33.3 seconds 01/23/2016 Pt Yvg5576 INR 3.5 01/23/2016 Pt Fpf9130 Low Intensity - 1.5-2.0 01/23/2016 Pt Rrs5974 Mod intensity - 2.0-3.0 01/23/2016 Pt Lvq0748 Hi intensity - 3.0-4.0 01/23/2016 Pt Cgj6584 PT 30.5 seconds 12/31/2015 Pt Vtu7013 INR 3.2 12/31/2015 Pt Lyf8275 Low Intensity - 1.5-2.0 12/31/2015 Pt Hcd6910 Mod intensity - 2.0-3.0 12/31/2015 Pt Nwv2912 Hi intensity - 3.0-4.0 12/31/2015 Pt Atu7631 PT 35.6 seconds 12/25/2015 Pt Ntf6787 INR 3.9 12/25/2015 Pt Hlf0154 Low Intensity - 1.5-2.0 12/25/2015 Pt Jeb4822 Mod intensity - 2.0-3.0 12/25/2015 Pt Tnh8686 Hi intensity - 3.0-4.0 12/25/2015 Pt Wpy2646 PT 30.8 seconds 11/21/2015 Pt Sjz8627 INR 3.2 11/21/2015 Pt Pul0931 Low Intensity - 1.5-2.0 11/21/2015 Pt Pgw4660 Mod intensity - 2.0-3.0 11/21/2015 Pt Qxz8066 Hi intensity - 3.0-4.0 11/21/2015 Uric Acid [...] 30.0 pg 11/20/2015 Cbc With Differential Ord2 Sandoval% 8.1 % 11/20/2015 Cbc With Differential Ord2 [...] 2.51 K/ul 11/20/2015 Cbc With Differential Ord2 [place]oval ABS# 0.9 K/ul 11/20/2015 Cbc With Differential Ord2 Eos ABS# 0.3 K/ul 11/20/2015 Cbc With Differential Ord2 Baso ABS# 0.0 K/ul 11/20/2015 Comp Metabolic Znp676 NA 137 mEq/L 10/22/2015 Comp Metabolic Mul964 K 3.9 mEq/L 10/22/2015 Comp Metabolic Hcm806 CL 100 mEq/L 10/22/2015 Comp Metabolic Sha157 CO2 31.0 mEq/L 10/22/2015 Comp Metabolic Ean401 AN ION GAP 10 10/22/2015 Comp Metabolic Zbp071 GL UCOSE 94 mg/dL 10/22/2015 Comp Metabolic Kzs137 Cr eat 1.0 mg/dL 10/22/2015 Comp Metabolic Azw660 eG FR 55 ml/min/1.73m2 10/21 Comp Metabolic Jbs146 BUN 19 mg/dL 10/22/2015 Comp Metabolic Rum486 B/ C Ratio 18.3 Ratio 10/22/2015 Comp Metabolic Qqz261 CA LCIUM 8.8 mg/dL 10/22/2015 Comp Metabolic Rlg232 AL K PHOS 83 U/L 10/22/2015 Comp Metabolic Ihb658 T(SGOT) 15 U/L 10/22/2015 Comp Metabolic Gon953 AL T(SGPT) 13 U/L 10/22/2015 Comp Metabolic Syr800 BI LI T 0.9 mg/dL 10/22/2015 Comp Metabolic Mxo856 AL BUMIN 2.8 g/dL 10/22/2015 Comp Metabolic Qzv991 TP RO 5.4 g/dL 10/22/2015 Comp Metabolic Oyl410 GL OB 2.6 g/dL 10/22/2015 Comp Metabolic Mhb410 A/ G Ratio 1.1 Ratio 10/22/2015 Comp Metabolic Zyj236 Os mo 276 mOsmo 10/22/2015 Bili D Ord93 BILI D 0.1 mg/dL 10/22/2015 Bili D Ord93 BILI I 0.8 mg/dL 10/22/2015 Pt Gmr7377 PT 22.8 seconds 10/22/2015 Pt Wpc6209 INR 2.1 10/22/2015 Pt Uua1568 Low Intensity - 1.5-2.0 10/22/2015 Pt Hsl0356 Mod intensity - 2.0-3.0 10/22/2015 Pt Bvz8401 Hi intensity - 3.0-4.0 10/22/2015 Pt Qkj4412 PT 28.0 seconds 09/16/2015 Pt Uwf8871 INR 2.7 09/16/2015 Pt Hbv1687 Low Intensity - 1.5-2.0 09/16/2015 Pt Wpe3463 Mod intensity - 2.0-3.0 09/16/2015 Pt Ubz1607 Hi intensity - 3.0-4.0 09/16/2015 Tsh Ord6 hTSH II 1.40 uIU/mL 09/16/2015 Free T4 Mys812 FREE T4 1.73 ng/dL 09/16/2015 Lipid Ord30 CHOL 169 mg/dL 09/16/2015 Lipid Ord30 HDL 66.0 mg/dl 09/16/2015 Lipid Ord30 TRIG 78 mg/dL 09/16/2015 Lipid Ord30 LDL 87 mg/dL 09/16/2015 Lipid Ord30 C/HDL 2.6 Ratio 09/16/2015 Pt Oql0531 PT 26.6 seconds 08/21/2015 Pt Zyr9113 INR 2.6 08/21/2015 Pt Kgx9654 Low Intensity - 1.5-2.0 08/21/2015 Pt Blt0589 Mod intensity - 2.0-3.0 08/21/2015 Pt Ize0912 Hi intensity - 3.0-4.0 08/21/2015 Comp Metabolic Rzc968 NA 141 mEq/L 08/08/2015 Comp Metabolic Kwd934 K 3.3 mEq/L 08/08/2015 Comp Metabolic Khp434 CL 102 mEq/L 08/08/2015 Comp Metabolic Xoy245 CO2 31.0 mEq/L 08/08/2015 Comp Metabolic Uik769 AN ION GAP 11 08/08/2015 Comp Metabolic Tgs759 GL UCOSE 83 mg/dL 08/08/2015 Comp Metabolic Txm204 Cr eat 1.0 mg/dL 08/08/2015 Comp Metabolic Edj386 eG FR 55 ml/min/1.73m2 08/08 Comp Metabolic Oab630 BUN 19 mg/dL 08/08/2015 Comp Metabolic Mik944 B/ C Ratio 18.3 Ratio 08/08/2015 Comp Metabolic Eww694 CA LCIUM 8.9 mg/dL 08/08/2015 Comp Metabolic Sil260 AL K PHOS 84 U/L 08/08/2015 Comp Metabolic Nji340 T(SGOT) 20 U/L 08/08/2015 Comp Metabolic Bes837 AL T(SGPT) 18 U/L 08/08/2015 Comp Metabolic Adj083 BI LI T 0.6 mg/dL 08/08/2015 Comp Metabolic Nvq697 AL BUMIN 3.3 g/dL 08/08/2015 Comp Metabolic Wce581 TP RO 5.9 g/dL 08/08/2015 Comp Metabolic Yyv770 GL OB 2.6 g/dL 08/08/2015 Comp Metabolic Ldd022 A/ G Ratio 1.3 Ratio 08/08/2015 Comp Metabolic Rtd318 Os mo 283 mOsmo 08/08/2015 Cbc With [...] 30.0 pg 08/08/2015 Cbc With Differential Ord2 Sandoval% 8.2 % 08/08/2015 Cbc With Differential Ord2 [...] 2.90 K/ul 08/08/2015 Cbc With Differential Ord2 [place] ABS# 0.9 K/ul 08/08/2015 Cbc With Differential [...] Ord93 BILI I 0.5 mg/dL 08/08/2015 Pt Zfr9306 PT 31.8 seconds 08/05/2015 Pt Njr1255 INR 3.2 08/05/2015 Pt Gts6542 Low Intensity - 1.5-2.0 08/05/2015 Pt Gcc8446 Mod intensity - 2.0-3.0 08/05/2015 Pt Dir3739 Hi intensity - 3.0-4.0 08/05/2015 Pt Mqm5985 PT 27.4 seconds 06/27/2015 Pt Zmi1468 INR 2.6 06/27/2015 Pt Flm7208 Low Intensity - 1.5-2.0 06/27/2015 Pt Ibk5608 Mod intensity - 2.0-3.0 06/27/2015 Pt Mfq7151 Hi intensity - 3.0-4.0 06/27/2015 Tsh Ord6 [...] Ord2 RDW 15.1 % 05/31/2015 Free T4 Xvl402 FREE T4 1.89 ng/dL 05/31/2015 Comp Metabolic Gzh941 NA 140 mEq/L 05/31/2015 Comp Metabolic Mra249 K 3.3 mEq/L 05/31/2015 Comp Metabolic Lcw264 CL 99 mEq/L 05/31/2015 Comp Metabolic Trc105 CO2 30.0 mEq/L 05/31/2015 Comp Metabolic Ygl723 AN ION GAP 14 05/31/2015 Comp Metabolic Dcz191 GL UCOSE 70 mg/dL 05/31/2015 Comp Metabolic Atd203 Cr eat 1.0 mg/dL 05/31/2015 Comp Metabolic Goz560 eG FR 55 ml/min/1.73m2 05/31 Comp Metabolic Num453 BUN 23 mg/dL 05/31/2015 Comp Metabolic Egc132 B/ C Ratio 22.1 Ratio 05/31/2015 Comp Metabolic Tro230 CA LCIUM 8.9 mg/dL 05/31/2015 Comp Metabolic Ggk306 AL K PHOS 86 U/L 05/31/2015 Comp Metabolic Jef368 T(SGOT) 28 U/L 05/31/2015 Comp Metabolic Aqp158 AL T(SGPT) 30 U/L 05/31/2015 Comp Metabolic Xpf693 BI LI T 0.4 mg/dL 05/31/2015 Comp Metabolic Weo678 AL BUMIN 3.3 g/dL 05/31/2015 Comp Metabolic Ndr927 TP RO 6.0 g/dL 05/31/2015 Comp Metabolic Ary881 GL OB 2.7 g/dL 05/31/2015 Comp Metabolic Rbh307 A/ G Ratio 1.2 Ratio 05/31/2015 Comp Metabolic Bst543 Os mo 282 mOsmo 05/31/2015 Pt Wdi4602 PT 23.3 seconds 04/15/2015 Pt Ksr6839 INR 2.2 04/15/2015 Pt Wte5378 Low Intensity - 1.5-2.0 04/15/2015 Pt Fcb7695 Mod intensity - 2.0-3.0 04/15/2015 Pt Brt3944 Hi intensity - 3.0-4.0 04/15/2015 Pt Qba7047 PT 19.5 seconds 04/04/2015 Pt Kts0394 INR 1.7 04/04/2015 Pt Oqt1139 Low Intensity - 1.5-2.0 04/04/2015 Pt Xtx9001 Mod intensity - 2.0-3.0 04/04/2015 Pt Tjd9891 Hi intensity - 3.0-4.0 04/04/2015 Pt Oks1396 PT 39.8 seconds 04/01/2015 Pt Byk8888 INR 4.3 04/01/2015 Pt Jjj0805 Low Intensity - 1.5-2.0 04/01/2015 Pt Aos5435 Mod intensity - 2.0-3.0 04/01/2015 Pt Elz1445 Hi intensity - 3.0-4.0 04/01/2015 Metabolic Ord15 [...] Metabolic Ord15 CALCIUM 8.7 mg/dL 02/28/2015 Pt Uyd1713 PT 31.4 seconds 02/28/2015 Pt Bxv7651 INR 3.2 02/28/2015 Pt Fif4761 Low Intensity - 1.5-2.0 02/28/2015 Pt Qsm4787 Mod intensity - 2.0-3.0 02/28/2015 Pt Fto0642 Hi intensity - 3.0-4.0 02/28/2015 Pt Pvz1722 PT 23.2 seconds 01/18/2015 Pt Lgd2185 INR 2.1 01/18/2015 Pt Sdy0106 Low Intensity - 1.5-2.0 01/18/2015 Pt Ucq5564 Mod intensity - 2.0-3.0 01/18/2015 Pt Fac1401 Hi intensity - 3.0-4.0 01/18/2015 Pt Toz9177 PT 18.2 seconds 01/10/2015 Pt Gix6348 INR 1.6 01/10/2015 Pt Sfw7227 Low Intensity - 1.5-2.0 01/10/2015 Pt Nug7973 Mod intensity - 2.0-3.0 01/10/2015 Pt Cie7282 Hi intensity - 3.0-4.0 01/10/2015 Review of Systems System Result Effective Dates Constitutional recent illness 07/11/2018 Constitutional No anorexia [...] 03/24/2018 ADMIN PNEUMOCOCCAL V ACCINE SNOMED CT: 49264771 CPT-4: G0009 03/24/2018 FLU VACC PRSV FREE I NC ANTIG Formatting Model/CDA Sections, Assigned to/Dorothea Tan CPT-4: 39733Okgpfuk 03/24/2018 Pneumococcal Polysac charide Vaccine, 23-Valent, Ad CPT-4: 88312 03/24/2018 TRIAMCINOLONE ACET I [place] NOS CPT-4: J3301 06/15/2017 THER/PROPH/DIAG INJ SC/IM CPT-4: 28119 06/15/2017 ADMIN PNEUMOCOCCAL V ACCINE SNOMED CT: 75963206 CPT-4: G0009 03/16/2017 ADMIN INFLUENZA VIRU S VAC CPT-4: G0008 03/16/2017 FLU VAC NO PRSV 4 VA L 3 YRS+ CPT-4: 67983 03/16/2017 PNEUMOCOCCAL VACC [address]: 11785476 CPT-4: 72881 03/16/2017 URINALYSIS NONAUTO W /O SCOPE CPT-4: 69999 08/26/2016 THER/PROPH/DIAG INJ SC/IM CPT-4: 49978 07/22/2016 TRIAMCINOLONE ACET I [place] NOS CPT-4: J3301 07/22/2016 ROCEPHIN, PER 250 MG CPT-4: J0696 07/22/2016 TRIAMCINOLONE ACET I [place] NOS CPT-4: J3301 02/05/2015 Vital Signs Date Vital 07/11/2018 Blood Pressure 1: 102/68 Code: 8480-6 BMI: 34.5 Code: 24031-8 Heart Rate 1: 101 bpm Height: 5'7" SpO2: 98% Weight: 220 lbs 03/24/2018 Blood Pressure 1: 130/72 Code: 8480-6 BMI: 33.4 Code: 16259-3 Heart Rate 1: 82 bpm Height: 5'7" SpO2: 93% Weight: 213 lbs 11/18/2017 Blood Pressure 1: 128/70 Code: 8480-6 BMI: 33.6 Code: 43737-9 Heart Rate 1: 98 bpm Height: 5'7" SpO2: 97% Weight: 214 lbs 8 oz 09/30/2017 Blood Pressure 1: 100/50 Code: 8480-6 BMI: 34.0 Code: 86075-5 Heart Rate 1: 66 bpm Height: 5'7" SpO2: 96% Weight: 217 lbs 08/17/2017 Blood Pressure 1: 104/60 Code: 8480-6 BMI: 33.7 Code: 67758-9 Heart Rate 1: 99 bpm Height: 5'7" SpO2: 97% Weight: 215 lbs 06/15/2017 Blood Pressure 1: 120/64 Code: 8480-6 BMI: 33.5 Code: 15497-6 Heart Rate 1: 91 bpm Height: 5'7" SpO2: 94% Weight: 214 lbs 04/01/2017 Blood Pressure 1: 110/68 Code: 8480-6 BMI: 154.4 Code: 42777-6 Heart Rate 1: 66 bpm Height: 2'7" SpO2: 95% Weight: 211 lbs 03/16/2017 Blood Pressure 1: 130/72 Code: 8480-6 BMI: 33.0 Code: 45296-0 Heart Rate 1: 95 bpm Height: 5'7" SpO2: 97% Weight: 211 lbs 02/09/2017 Blood Pressure 1: 120/70 Code: 8480-6 BMI: 32.9 Code: 19615-8 Heart Rate 1: 78 bpm Height: 5'7" SpO2: 96% Weight: 210 lbs 10/13/2016 Blood Pressure 1: 118/76 Code: 8480-6 BMI: 32.6 Code: 23547-3 Heart Rate 1: 97 bpm Height: 5'7" SpO2: 98% Weight: 208 lbs 07/31/2016 Blood Pressure 1: 110/64 Code: 8480-6 BMI: 32.1 Code: 89474-4 Heart Rate 1: 79 bpm Height: 5'7" SpO2: 94% Weight: 205 lbs 07/22/2016 Blood Pressure 1: 108/74 Code: 8480-6 BMI: 32.1 Code: 17473-2 Heart Rate 1: 71 bpm Height: 5'7" SpO2: 97% Temperature: 36.9 (C ) / 98.4 (F) Weight: 205 lbs 05/01/2016 Blood Pressure 1: 120/72 Code: 8480-6 BMI: 32.7 Code: 58427-2 Heart Rate 1: 75 bpm Height: 5'7" SpO2: 94% Weight: 209 lbs 04/06/2016 Blood Pressure 1: 106/62 Code: 8480-6 BMI: 32.7 Code: 61086-7 Heart Rate 1: 83 bpm Height: 5'7" SpO2: 97% Weight: 209 lbs 03/06/2016 Blood Pressure 1: 112/68 Code: 8480-6 BMI: 32.7 Code: 61139-0 Heart Rate 1: 90 bpm Height: 5'7" SpO2: 97% Weight: 209 lbs 03/03/2016 Blood Pressure 1: 120/62 Code: 8480-6 BMI: 32.7 Code: 81314-4 Heart Rate 1: 92 bpm Height: 5'7" SpO2: 98% Weight: 209 lbs 02/07/2016 Blood Pressure 1: 110/64 Code: 8480-6 BMI: 32.7 Code: 14456-5 Heart Rate 1: 87 bpm Height: 5'7" SpO2: 97% Weight: 209 lbs 12/13/2015 Blood Pressure 1: 110/64 Code: 8480-6 BMI: 33.5 Code: 88546-5 Heart Rate 1: 90 bpm Height: 5'7" SpO2: 97% Weight: 214 lbs 12/03/2015 Blood Pressure 1: 132/76 Code: 8480-6 BMI: 33.4 Code: 02078-9 Heart Rate 1: 82 bpm Height: 5'7" SpO2: 99% Weight: 213 lbs 11/20/2015 Blood Pressure 1: 108/68 Code: 8480-6 BMI: 32.4 Code: 37928-4 Heart Rate 1: 77 bpm Height: 5'7" SpO2: 97% Weight: 207 lbs 09/17/2015 Blood Pressure 1: 122/76 Code: 8480-6 BMI: 33.0 Code: 54993-5 Heart Rate 1: 91 bpm Height: 5'7" SpO2: 97% Weight: 211 lbs 05/31/2015 Blood Pressure 1: 128/82 Code: 8480-6 BMI: 33.4 Code: 97879-2 Heart Rate 1: 98 bpm Height: 5'7" SpO2: 99% Weight: 213 lbs 02/05/2015 Blood Pressure 1: 128/80 Code: 8480-6 BMI: 32.6 Code: 13600-8 Heart Rate 1: 86 bpm Height: 5'7" SpO2: 97% Weight: 208 lbs 11/20/2014 Blood Pressure 1: 128/90 Code: 8480-6 BMI: 30.9 Code: 71072-4 Heart Rate 1: 94 bpm Height: 5'7" Weight: 197 lbs Functional Status No Functional Status data History of Present Illness Symptom Name Status Resu lt Effective Date Notes Onset and Resolution o ngoing 07/11/2018 None [...] Findings Denies fever 05/31/2015 None hypothyroid 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 P ATIENT, LEVEL IV Diagnosis: Atrophy of thyroid (acquired)[ICD10: E03.4] Diagnosis: Essential (primary) hypertension[ICD10: I10] Diagnosis: Other fatigue[ICD10: R53.83] Diagnosis: Localized edema[ICD10: R60.0] Valerie Pisano MD, [facility] CPT-4: 44353 07/11/2018 ([id number]) 26563 EST. P ATIENT, LEVEL IV Diagnosis: Essential (primary) hypertension[ICD10: I10] Diagnosis: Atrophy of thyroid (acquired)[ICD10: E03.4] Diagnosis: Chronic atrial fibrillation[ICD10: I48.2] Valerie Pisano MD, [facility] CPT-4: 28199 03/24/2018 ([id number]) 89393 EST. P ATIENT, LEVEL IV Diagnosis: Essential (primary) hypertension[ICD10: I10] Diagnosis: Atrophy of thyroid (acquired)[ICD10: E03.4] Diagnosis: Chronic atrial fibrillation[ICD10: I48.2] Valerie Pisano MD, [facility] CPT-4: 12681 11/18/2017 [id number] EST. PATIENT, LEVEL IV Diagnosis: Localized edema[ICD10: R60.0] Roxie Pisano MD, [facility] CPT-4: 22795 09/30/2017 ([id number]) 30552 EST. P ATIENT, LEVEL III Diagnosis: Essential (primary) hypertension[ICD10: I10] Valerie Pisano MD, [facility] CPT-4: 75056 08/17/2017 ([id number]) 83127 EST. P ATIENT, LEVEL IV Diagnosis: Essential (primary) hypertension[ICD10: I10] Diagnosis: Atrophy of thyroid (acquired)[ICD10: E03.4] Diagnosis: Chronic atrial fibrillation[ICD10: I48.2] Diagnosis: Cervicalgia[ICD10: M54.2] Diagnosis: Other muscle spasm[ICD10: M62.838] Valerie Pisano MD, [facility] CPT- 4: 61556 06/15/2017 [id number] EST. PATIENT, LEVEL III Diagnosis: Laceration without foreign body of other finger without damage to nail, initial encounter[ICD10: S61.218A] Roxie Pisano MD, [facility] CPT-4: 36763 04/01/2017 ([id number]) 13981 EST. 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 P ATIENT, LEVEL IV Diagnosis: Chronic atrial fibrillation[ICD10: I48.2] Diagnosis: Essential (primary) hypertension[ICD10: I10] Diagnosis: Other fatigue[ICD10: R53.83] Diagnosis: half-way (current) use of anticoagulants[ICD10: Z79.01] Diagnosis: Atrophy of thyroid (acquired)[ICD10: E03.4] Valerie Pisano MD, [facility] CPT-4: 86145 02/09/2017 ([id number]) 17653 EST. P ATIENT, LEVEL IV Diagnosis: Essential (primary) hypertension[ICD10: I10] Diagnosis: Chronic atrial fibrillation[ICD10: I48.2] Diagnosis: Tinea corporis[ICD10: B35.4] Diagnosis: half-way (current) use of anticoagulants[ICD10: Z79.01] Diagnosis: Other skin changes[ICD10: R23.8] Valerie Pisano MD, [facility] CPT-4: 07902 10/13/2016 68510 EST. PATIENT, LEVEL III Diagnosis: Other acute sinusitis[ICD10: J01.80] Diagnosis: Other allergic rhinitis[ICD10: J30.89] Roxie Pisano MD, [facility] CPT-4: 12434 07/31/2016 ([id number]) 00052 EST. P ATIENT, LEVEL III Diagnosis: Acute recurrent maxillary sinusitis[ICD10: J01.01] Valerie Pisano MD, [facility] CPT-4: 85557 07/22/2016 26522 EST. PATIENT, LEVEL IV Diagnosis: Essential (primary) hypertension[ICD10: I10] Diagnosis: Other allergic rhinitis[ICD10: J30.89] Diagnosis: Localized edema[ICD10: R60.0] Roxie Pisano MD, [facility] CPT-4: 67243 05/01/2016 56639 EST. PATIENT, LEVEL III Diagnosis: Cellulitis of left lower limb[ICD10: L03.116] Diagnosis: Localized edema[ICD10: R60.0] Roxie Pisano MD, [facility] CPT-4: 00967 04/06/2016 ([id number]) Miscellaneou s no charge Diagnosis: Cellulitis of left lower limb[ICD10: L03.116] Diagnosis: Localized edema[ICD10: R60.0] Roxie Pisano MD, [facility] CPT-4: 34750 03/10/2016 ([id number]) Miscellaneou s no charge Diagnosis: Cellulitis of left lower limb[ICD10: L03.116] Roxie Pisano MD, [facility] CPT-4: 66081 03/06/2016 94841 EST. PATIENT, LEVEL IV Diagnosis: Cellulitis of left lower limb[ICD10: L03.116] Diagnosis: Localized edema[ICD10: R60.0] Roxie Pisano MD, [facility] CPT-4: 80894 03/03/2016 ([id number]) 76926 EST. P ATIENT, LEVEL III Diagnosis: Essential (primary) hypertension[ICD10: I10] Diagnosis: [employer] (current) use of anticoagulants[ICD10: Z79.01] Diagnosis: Chronic atrial fibrillation[ICD10: I48.2] Brielle Pisano MD, [facility] CPT-4: 63007 02/07/2016 ([id number]) 44866 EST. P ATIENT, LEVEL III Diagnosis: Iliotibial band syndrome, right leg[ICD10: M76.31] Diagnosis: Localized edema[ICD10: R60.0] [facility] CPT- 4: 12266 12/13/2015 ([id number]) 42267 EST. P ATIENT, LEVEL III Diagnosis: Localized edema[ICD10: R60.0] Diagnosis: Essential (primary) hypertension[ICD10: I10] Brielle Pisano MD, [facility] CPT-4: 98990 12/03/2015 ([id number]) 17606 EST. P ATIENT, LEVEL IV Diagnosis: [employer] (current) use of anticoagulants[ICD10: Z79.01] Diagnosis: Other skin changes[ICD10: R23.8] Diagnosis: Localized edema[ICD10: R60.0] Diagnosis: Pain in right foot[ICD10: M79.671] [facility] CPT- 4: 13280 11/20/2015 [id number] EST. PATIENT, LEVEL IV Diagnosis: Essential (primary) hypertension[ICD10: I10] Diagnosis: half-way (current) use of anticoagulants[ICD10: Z79.01] Diagnosis: Muscle spasm of back[ICD10: M62.830] [facility]ie [facility] CPT- 4: 94277 09/17/2015 ([id number]) 23492 EST. P ATIENT, LEVEL IV Diagnosis: Localized edema[ICD10: R60.0] Diagnosis: Other specified hypothyroidism[ICD10: E03.8] Diagnosis: Essential (primary) hypertension[ICD10: I10] [facility] CPT-4: 98386 05/31/2015 ([id number]) 15086 EST. P ATIENT, LEVEL III Diagnosis: ALLERGIC RHINITIS[ICD9: 477.9] Diagnosis: ESSENTIAL HYPERTENSION[ICD9: 401.9] [facility] CPT-4: 76199 02/05/2015 ([id number]) OFFICE VISI T, NEW - LEVEL 4 Diagnosis: ESSENTIAL HYPERTENSION[ICD9: 401.9] Diagnosis: HYPOTHYROIDISM[ICD9: 244.9] Diagnosis: ACTINIC KERATOSIS[ICD9: 702.0] [facility] CPT-4: 73270 11/20/2014 Plan of Care Planned Activity Notes C odes Status Date Patient Education: Patient Medication Summary Completed 07/29/2018 Appointment: Brielle Cavazos WPtel: [address] [place], [place] [id number] (15 min) Moderate 07/12/2018 Visit Plan: Hypertension [...] twice daily. 07/11/2018 Appointment: [phone] (15 min) Moderate 07/11/2018 Patient Education: Patient [...] today. 03/24/2018 Appointment: Valerie Pisano WPtel: [phone] [facility] (15 min) Moderate 03/24/2018 Patient Education: Patient [...] control. 11/18/2017 Appointment: Valerie Pisano WPtel: [phone] [facility] (15 min) Moderate 11/18/2017 Patient Education: Patient Medication Summary Completed 11/18/2017 Referral: Via [facility] Wound Care WPtel: 1 [facility]66[facility] Pt notified at appointment Appointment [...] Boots 09/30/2017 Appointment: Roxie Cazares WPtel: [phone] [facility] (30 min) Complex 09/30/2017 Patient Education: Patient Medication Summary Completed 09/30/2017 Care Plan: Referral Order SNOMED-CT : [id number] Pending 09/30/2017 Visit Plan: Hypertension - well [...] this time. 08/17/2017 Appointment: Valerie Pisano WPtel: [facility] [place] (15 min) Moderate 08/17/2017 Patient Education: [...] neck muscles. allergies - kenalog 40mg im Glycosan squibb - lot # [id number] expires september 2018 06/15/2017 Visit Plan: Hypertension [...] muscles. 06/15/2017 Appointment: Valerie Pisano WPtel: [phone] [facility] (15 min) Moderate 06/15/2017 Patient Education: Patient Medication Summary Completed 06/15/2017 Care Plan: Referral Order SNOMED-CT : [id number] Pending 06/15/2017 Appointment: Nurse Visit 04/05/2017 Appointment: [...] booster. 04/01/2017 Appointment: Roxie Cazares WPtel: [phone] [facility] (15 min) Moderate 04/01/2017 Patient Education: Patient [...] today 03/16/2017 Appointment: [facility]el[phone] (15 min) Moderate 03/16/2017 Patient Education: Patient [...] spray. 02/09/2017 Appointment: Valerie Pisano WPtel: [address] [place] [address] (15 min) Moderate 02/09/2017 Patient Education: Patient [...] nystatin 10/13/2016 Appointment: Valerie Pisano WPtel: [phone] [facility] (15 min) Moderate 10/13/2016 Patient Education: Patient Medication Summary Completed 10/13/2016 Patient Education: Obesity Completed 10/13/2016 Patient Education: Hypertension Completed 10/13/2016 Care Plan: Urine Culture Pending 08/31/2016 Appointment: Roxie Cazares WPtel: [facility]6 [facility]66[facility] Lab Draw 08/27/2016 Appointment: Nurse Visit [...] Brielle Cavazos WPtel: [phone] [phone] (30 min) Complex 07/31/2016 Patient Education: Patient Medication Summary Completed 07/31/2016 Patient Education: Obesity Completed 07/31/2016 Visit Plan: Sinusitis - Pt has acut e infection - pain in face, maxillary region, Pt informed to use decongestant, RX given to patient, sinus rinses also recommended. Call if symptoms do not show improvement. 07/22/2016 Appointment: Valerie Pisano WPtel: [facility]4 [facility] (15 min) [...] Brielle Cavazos WPtel: [phone] [phone] (30 min) Complex 05/01/2016 Patient Education: Patient [...] edema. 04/06/2016 Appointment: [phone] (30 min) Complex 04/06/2016 Patient Education: Patient Medication Summary Completed 04/06/2016 Patient Education: Obesity Completed 04/06/2016 Visit Plan: left foot - improved - pt finished with antibiotics - continue to monitor - notify clinic with any concerns. Repeat INR today. 03/10/2016 Appointment: Brielle Cavazos WPtel: [phone] [phone] (30 min) Complex 03/10/2016 Patient Education: Patient Medication Summary Completed 03/10/2016 Visit Plan: Cellulitis - continue w ith oral antibiotics as previously directed, return to clinic as previously directed, call for acute change in symptoms, worsening redness, warmth, discharge. 03/06/2016 Appointment: Brielel Cavazos WPtel: [facility]4 [phone] (15 min) Moderate 03/06/2016 Patient Education: Patient Medication Summary Completed 03/06/2016 Patient Education: Obesity Completed 03/06/2016 Visit Plan: Cellulitis - continue w ith oral antibiotics as previously directed, return to clinic as previously directed, call for acute change in symptoms, worsening redness, warmth, discharge. 03/03/2016 Appointment: Brielle Cavazos WPtel: [phone] [phone] (15 min) Moderate 03/03/2016 Patient Education: Patient [...] and 3.5. 02/07/2016 Appointment: Brielle Cavazos WPtel: [phone] [phone] (30 min) Complex 02/07/2016 Patient Education: Patient Medication Summary Completed 02/07/2016 Patient Education: Obesity Completed 02/07/2016 Patient Education: Hypertension Completed 02/07/2016 Appointment: Brielle Cavazos: [facility]3 [phone] (30 min) Complex 02/04/2016 Visit Plan: Iliotibial [...] Brielle Cavazos WPtel: [phone] [facility] [place] [address] (15 min) Moderate 12/13/2015 Patient Education: Patient [...] at home. 12/03/2015 Appointment: Brielle Cavazos WPtel: [facility]2 [phone] (30 min) Complex 12/03/2015 Patient Education: Patient [...] Hypertension Completed 02/05/2015 Appointment: Valerie Pisano WPtel: [address] [place], [place] [phone] (15 min) Moderate 01/29/2015 Visit Plan: Hypertension [...] Wound Care WPtel: 1 [facility] [id number] [place] Referral Appointment Confirmed Instructions Comment . [...] of control. get blood work one w [place] before next appt - fasting labs Decrease [...] does not improve. . left foot - impro ed - [...] neck muscles. allergies - kenalog 40mg im [employer] - lot # [id number] expires september 2018 Decrease to 2.5mg (1 [...] in blood pressure readings at home. . Hypertension - wel l controlled - [...] Kenalog injection today in the office. . Hypertension - wel l controlled - [...] therapy. RX for voltaren to neck muscles. newton cabello or david while on the [...]
--- OUTSIDE RECORDS SUMMARY | 2019-09-12 11:44 | XMS REPORT | CCD ---
Author Author Clara Pisano Organization [facility] Address [address] [place] [address] Phone Care Team Providers Care Manager Adobe Name Role Phone PP Unavailable CCM Unavailable Summary Purpose Interface Exchange Insurance Providers Payer name Policy type / Coverage type Covered republican ID Effective Begin Date Effective End Date WPS Medicare Part B Medicare Part B [id number] 2018 Unknown [employer] Medicare Part B [id number] Unknown Family history Sister Diagnosis Age At Onset defect Unknown Breast cancer Unknown Daughter Diagnosis Age At Onset Breast cancer Unknown Mother Diagnosis Age At Onset No Family Disease Entered N/A Social History Social History Element Codes Description Effective Dates Marital status Unknown M arried Lane 11/20/2014 Number of children Unknown 6 11/20/2014 Employment Unknown Retir ed 11/20/[address]: 6851932 Quit over 10 years ago 1963 11/20/2014 [...] ICD-9: 883.0 ICD-10: S61.218A Active 04/01/2017 Unknown intermediate (current) use of anticoagulants ICD-9: V58.61 [...] HYPOTHYROIDISM ICD-9: 244.9 Active 11/19/2014 Unknown 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 TAKE ON AN EMPTY STOMACH 08/04/2018 04/30/2019 Active meclizine 25 mg tablet RxNorm: 443637 1 Tablet(s) PO TID as needed Dizziness 07/22/2018 No Stop Date Active meclizine 25 mg tablet RxNorm: 740624 1 Tablet(s) PO TID as needed Dizziness 07/19/2018 07/21/2018 In active Coumadin 4 mg tablet RxNorm: 208614 1 Tablet(s) PO daily except 1.5 pills on WEDNESDAY AND Wednesday07/11/2018 07/05/2019 Active this is an update to her RX - she will let you know when she needs refill furosemide 40 mg tablet RxNorm: 925842 1 Tablet(s) BID take 1.5 tabs twice a da y x 7 days then 1 pill daily thereafter 07/11/2018 02/05/2019 Active warfarin 5 mg tablet RxNorm: 224199 Tablet(s) TAKE ONE TABLET BY MOUTH DAILY EXCEPT T/TH TAKE 4 MG 04/06/2018 08/22/2019 Active diltiazem 60 mg tablet RxNorm: 629059 1/2 Tablet(s) PO QID 03/24/2018 No Stop Date Active levothyroxine 125 mc g tablet RxNorm: 491951 TAKE ONE TABLET BY [facility] DAILY ON WEDNESDAY, WED, AND WEDNESDAY, AND 1/2 TABLET ON , , WED AND WEDNESDAY. TAKE ON AN EMPTY STOMACH 02/02/2018 07/31/2018 Inactive Coumadin 4 mg tablet RxNorm: 930838 TAKE ONE TABLET BY MOUTH DAILY ON AND Wednesday10/14/2017 07/10/2018 Inactive nystatin 100,000 uni t/gram topical cream RxNorm: 171330 1 Application TOP TID 08/17/2017 No Stop Date Active triamcinolone aceton sreekanth 0.025 % topical cream RxNorm: 5612531 1 Application TOP BI D 08/17/2017 No Stop Date Active Voltaren 1 % topical gel RxNorm: 563505 2 Gram(s) TOP TID luiz ly to shoulder and neck 08/17/2017 No Stop Date Active levothyroxine 125 mc g tablet RxNorm: 888459 1 Tablet(s) UD 1 pill wed/wed/wed, 1/2 pill //sat/sun take ON AN EMPTY STOMACH 08/05/2017 02/01/2018 Inactive Coumadin 4 mg tablet RxNorm: 437924 1 Tablet(s) PO Wed/07/29/2017 10/13/2017 Inactive warfarin 5 mg tablet RxNorm: 825586 TAKE 1 AND 1/2 TABLETS BY MOUTH ON AND WEDNESDAY. TAKE ONLY 1 TABLET BY MOUTH ALL OTHER DAYS OF THE WEEK 07/12/2017 04/05/2018 In active furosemide 40 mg tablet RxNorm: 228437 Tablet(s) BID TAKE ONE TABLET BY MOUTH D AILY 06/15/2017 07/10/2018 Inactive Voltaren 1 % topical gel RxNorm: 500242 2 Gram(s) TOP TID luiz ly to shoulder and neck 06/15/2017 08/16/2017 Inactive Keflex 500 mg capsule RxNorm: 556065 1 Capsule(s) PO TID 04/01/2017 04/07/2017 Inactive furosemide 40 mg tablet RxNorm: 253533 TAKE ONE TABLET BY MOUTH DAILY 03/18/2017 06/14/2017 In active Claritin-D 12 Hour 5 mg-120 mg tablet,extended release RxNorm: 2529962 1 Tablet(s) PO BID 03/16/2017 05/14/2017 Inactive Lipitor 20 mg tablet RxNorm: 356149 1 Tablet(s) PO daily 02/09/2017 03/10/2017 Inactive lisinopril 2.5 mg ta blet RxNorm: 140226 1 Tablet(s) PO daily 02/09/2017 03/10/2017 Inactive Nasonex 50 mcg/actua tion [place] RxNorm: 0199690 1 [place] NASAL BID 02/09/2017 09/06/2017 Inactive levothyroxine 125 mc g tablet RxNorm: 867471 1 Tablet(s) UD 1 pill wed/wed/wed, 1/2 pill //sat/sun take ON AN EMPTY STOMACH 02/09/2017 08/04/2017 Inactive fluorouracil 5 % top ical cream RxNorm: 208770 1 Application TOP BID 02/09/2017 02/18/2017 Inactive potassium chloride E R 20 mEq tablet,extended release RxNorm: 090376 Tablet(s) TAKE ONE TABLET BY MOUTH DAILY 02/08/2017 02/02/2018 Inactive warfarin 5 mg tablet RxNorm: 807610 TAKE 1 AND 1/2 TABLETS BY MOUTH ON AND WEDNESDAY. TAKE ONLY 1 TABLET BY MOUTH ALL OTHER DAYS OF THE WEEK 12/14/2016 05/30/2017 In active potassium chloride E R 20 mEq tablet,extended release RxNorm: 551369 TAKE ONE TABLET BY MOUTH DAILY 10/29/2016 01/26/2017 Inactive warfarin 5 mg tablet RxNorm: 254906 TAKE 1 AND 1/2 TABLETS BY MOUTH ON AND WEDNESDAY. TAKE ONLY 1 TABLET BY MOUTH ALL OTHER DAYS OF THE WEEK 10/27/2016 12/13/2016 In active nystatin 100,000 uni t/gram topical cream RxNorm: 134950 1 Application TOP TID 10/13/2016 08/16/2017 In active nitrofurantoin 50 mg capsule RxNorm: 313288 1 Capsule(s) PO BID 09/04/2016 09/03/2016 Inactive nitrofurantoin macro crystal 50 mg capsule RxNorm: 822319 1 Capsule(s) PO BID 09/04/2016 09/10/2016 In active Cipro 500 mg tablet RxNorm: 292624 1 Tablet(s) PO BID 08/26/2016 10/12/2016 Inactive Zyrtec 10 mg tablet RxNorm: 1409611 1 Tablet(s) PO daily 07/31/2016 08/29/2016 Inactive prednisone 20 mg tablet RxNorm: 714386 2 Tablet(s) PO daily 07/31/2016 08/02/2016 Inactive Kenalog 40 mg/mL zohra pension for injection RxNorm: 5784541 Milliliter(s) Inj 07/22/2016 07/22/2016 In active ceftriaxone 500 mg s olution for injection RxNorm: 4357228 Inj 07/22/2016 07/22/2016 Inactive Flonase Allergy Reli ef 50 mcg/actuation nasal spray,suspension RxNorm: 3650842 1 [place] NASAL BID 07/22/2016 08/20/2016 Inactive azithromycin 250 mg tablet RxNorm: 590999 2 Tablet(s) PO on day #1, then 1 pill daily x 4 days 07/22/2016 10/12/2016 Inactive warfarin 5 mg tablet RxNorm: 247693 TAKE 1 AND 1/2 TABLETS BY MOUTH ON AND WEDNESDAY. TAKE ONLY 1 TABLET BY MOUTH ALL OTHER DAYS OF THE WEEK 07/09/2016 09/30/2016 In active levothyroxine 125 mc g tablet RxNorm: 456445 Tablet(s) TAKE ONE TA BLET BY MOUTH DAILY ON AN EMPTY STOMACH 06/23/2016 02/08/2017 Inactive levothyroxine 125 mc g tablet RxNorm: 138212 TAKE ONE TABLET BY MO [facility] DAILY ON AN EMPTY STOMACH 06/23/2016 06/22/2016 Inactive levothyroxine 125 mc g tablet RxNorm: 024931 TAKE ONE TABLET BY MO U[facility] DAILY ON AN EMPTY STOMACH 06/23/2016 08/04/2017 Inactive cetirizine 10 mg tablet RxNorm: 7436112 TAKE ONE TABLET BY MOUTH DAILY 06/16/2016 10/13/2016 In active furosemide 40 mg tablet RxNorm: 515031 Tablet(s) TAKE ONE TABLET BY MOUTH DAILY 06/05/2016 12/01/2016 In active cetirizine 10 mg tablet RxNorm: 1543138 1 Tablet(s) PO daily 05/01/2016 05/30/2016 Inactive Levaquin 250 mg tablet RxNorm: 103178 Tablet(s) PO 2 pills day one and 1 pill day 2-7 04/06/2016 07/21/2016 Inactive warfarin 5 mg tablet RxNorm: 273377 Tablet(s) 1/2 TABLETS BY MOUTH ON AND WEDNESDAY. TAKE ONLY 1 TABLET BY MOUTH ALL OTHER DAYS OF THE WEEK 03/18/2016 07/07/2016 In active triamcinolone aceton sreekanth 0.025 % topical cream RxNorm: 9184294 1 Application TOP BI D 03/10/2016 08/16/2017 In active potassium chloride E R 20 mEq tablet,extended release RxNorm: 546287 1 Tablet(s) PO daily 03/04/2016 06/01/2016 Inactive Levaquin 250 mg tablet RxNorm: 001366 Tablet(s) PO 2 pills day one and 1 pill day 2-7 03/04/2016 04/05/2016 Inactive Levaquin 250 mg tablet RxNorm: 348335 Tablet(s) PO 2 pills day one and 1 pill day 2-7 03/03/2016 03/03/2016 Inactive potassium chloride E R 20 mEq tablet,extended release RxNorm: 525465 1 Tablet(s) PO daily 03/03/2016 03/03/2016 Inactive Cipro 500 mg tablet RxNorm: 038313 1 Tablet(s) PO BID 02/20/2016 07/21/2016 Inactive Cipro 500 mg tablet RxNorm: 823033 1 Tablet(s) PO BID 02/20/2016 02/19/2016 Inactive furosemide 40 mg tablet RxNorm: 577309 TAKE ONE TABLET BY MOUTH DAILY 01/27/2016 01/26/2016 In active warfarin 5 mg tablet RxNorm: 493155 TAKE 1 AND 1/2 TABLETS BY MOUTH ON AND WEDNESDAY. TAKE ONLY 1 TABLET BY MOUTH ALL OTHER DAYS OF THE WEEK 01/27/2016 01/26/2016 In active furosemide 40 mg tablet RxNorm: 346787 TAKE ONE TABLET BY MOUTH DAILY 01/27/2016 06/04/2016 In active warfarin 5 mg tablet RxNorm: 822711 TAKE 1 AND 1/2 TABLETS BY MOUTH ON AND WEDNESDAY. TAKE ONLY 1 TABLET BY MOUTH ALL OTHER DAYS OF THE WEEK 01/27/2016 03/17/2016 In active potassium chloride E R 20 mEq tablet,extended release RxNorm: 182546 1 Tablet(s) PO daily 11/20/2015 03/02/2016 Inactive furosemide 40 mg tablet RxNorm: 085430 TAKE ONE TABLET BY MOUTH DAILY 11/12/2015 01/26/2016 In active Zovirax 5 % topical cream RxNorm: 721127 TOP QID 0 09/24/2015 09/23/2015 Inactive Zovirax 5 % topical cream RxNorm: 565528 TOP QID 0 09/24/2015 11/19/2015 Inactive nystatin 100,000 uni t/gram topical cream RxNorm: 977205 1 Application TOP TID 09/17/2015 10/12/2016 In active warfarin 5 mg tablet RxNorm: 206476 TAKE 1 AND 1/2 TABLETS BY MOUTH ON AND WEDNESDAY. TAKE ONLY 1 TABLET BY MOUTH ALL OTHER DAYS OF THE WEEK 08/19/2015 01/05/2016 In active loratadine 10 mg tablet RxNorm: 625699 1 Tablet(s) PO daily 07/30/2015 07/23/2016 Inactive loratadine 10 mg tablet RxNorm: 814163 1 Tablet(s) PO daily 07/30/2015 07/29/2015 Inactive furosemide 40 mg tablet RxNorm: 495573 TAKE ONE TABLET BY MOUTH DAILY 06/24/2015 11/11/2015 In active levothyroxine 125 mc g tablet RxNorm: 929840 1 Tablet(s) PO daily 05/31/2015 05/24/2016 Inactive furosemide 40 mg tablet RxNorm: 134857 1 Tablet(s) PO daily 04/05/2015 06/23/2015 Inactive warfarin 5 mg tablet RxNorm: 570108 TAKE 1 AND 1/2 TABLETS BY MOUTH ON AND WEDNESDAY. TAKE ONLY 1 TABLET BY MOUTH ALL OTHER DAYS OF THE WEEK 02/12/2015 07/29/2015 In active Flonase Allergy Reli ef 50 mcg/actuation nasal spray,suspension RxNorm: 2 [place] NASAL daily 02/05/2015 03/06/2015 Inactive Kenalog 40 mg/mL zohra pension for injection RxNorm: 0033402 Milliliter(s) Inj 02/05/2015 02/05/2015 In active warfarin 5 mg tablet RxNorm: 392481 Take 7.5mg (1 1/2 tablets) Wednesday and and 1 Tablet(s) PO (5mg) all other days 01/11/2015 02/09/2015 Inactive levothyroxine 125 mc g tablet RxNorm: 240521 1 Tablet(s) PO every other day 01/01/2015 05/30/2015 In active alternate with 150 levothyroxine 150 mc g tablet RxNorm: 135732 1 Tablet(s) PO every other day 01/01/2015 05/30/2015 In active alternate with 125 loratadine 10 mg tablet RxNorm: 891276 Tablet(s) PO as needed No Start Date Active Fish Oil 1,000 mg ca psule RxNorm: 1 Capsule(s) PO TID No Start Date Active magnesium 250 mg tablet RxNorm: 1 Tablet(s) PO daily No Start Date Active Vitamin D3 2,000 uni t tablet RxNorm: 971094 2 Tablet(s) PO daily No Start Date Active Fosamax 35 mg tablet RxNorm: 016498 1 Tablet(s) PO QW No Start Date Active levothyroxine 125 mc g tablet RxNorm: 986731 1 Tablet(s) PO daily No Start Date 12/31/2014 Inactive levothyroxine 150 mc g tablet RxNorm: 767766 1 Tablet(s) PO daily No Start Date 12/31/2014 Inactive diltiazem 60 mg tablet RxNorm: 702327 1 Tablet(s) PO QID No Start Date 03/23/2018 Inactive meclizine 25 mg tablet RxNorm: 635024 1 Tablet(s) PO TID as needed Dizziness No Start Date 07/18/2018 Inactive furosemide 40 mg tablet RxNorm: 920827 1 Tablet(s) PO daily No Start Date 04/04/2015 Inactive potassium chloride RxNorm: miscellaneous No Start Date 11/19/2015 Inactive Vitamin D2 oral RxNorm: 4018 oral No Start Date 05/31/2015 Inactive warfarin 5 mg tablet RxNorm: 332057 1 Tablet(s) PO daily No Start Date 01/10/2015 Inactive Coumadin 4 mg tablet RxNorm: 870218 1 Tablet(s) PO Wed/ No Start Date 07/28/2017 Inactive Medication Administered Medication Codes Instruc tions Start Date Status ceftriaxone 500 mg solution for injection RxNorm: 0375172 07/22/2016 No longer A ctive Kenalog 40 mg/mL suspension for injection RxNorm: 2507004 Milliliter 07/22/2016 No longer Active Kenalog 40 mg/mL suspension for injection RxNorm: 5673894 Milliliter 02/05/2015 No longer Active Immunizations Vaccine [...] of breast ICD-10: Z12.31 ICD-9: V76.12 07/29/2018 Atrophy of thyroid (acquired) ICD-10 : E03.4 ICD-9: 244.8 07/11/2018 Other fatigue ICD-10: R53.83 ICD-9: 780.79 07/11/2018 Localized edema ICD-10: R60.0 ICD-9: 782.3 07/11/2018 Essential (primary) hypertension ICD -10: I10 ICD-9: 401.9 07/11/2018 Chronic atrial fibrillation ICD-10: I48.2 ICD-9: 427.31 07/11/2018 Hypothyroidism, unspecified ICD-10: E03.9 ICD-9: 244.9 07/11/2018 Abnormal results of kidney function studies ICD-10: R94.4 ICD-9: 794.4 06/30/2018 Encounter for immunization ICD-10: Z 23 ICD-9: V03.9 03/24/2018 Other muscle spasm ICD-10: M62.838 ICD-9: 728.85 06/15/2017 Cervicalgia ICD-10: M54.2 ICD-9: 723.1 06/15/2017 Laceration without foreign body of other finger without damage to nail, initial encounter ICD-10: S61.218A ICD-9: 883.0 04/01/2017 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 ICD-10: Z79.01 ICD-9: V58.61 03/16/2017 Other skin changes ICD-10: R23.8 ICD-9: 782.9 10/13/2016 Tinea corporis ICD-10: B35.4 ICD-9: 110.5 [...] 11/20/2014 ACTINIC KERATOSIS ICD-9: 702.0 11/20/2014 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 ICD-9: V58.61 [...] Code Item Item Code Result Date Pt Ecn5740 PT 29.5 seconds 08/01/2018 Pt Oex6485 INR 2.8 08/01/2018 Pt Pav1078 Low Intensity - 1.5-2.0 08/01/2018 Pt Ths2296 Mod intensity - 2.0-3.0 08/01/2018 Pt Jeh6040 Hi intensity - 3.0-4.0 08/01/2018 Pt Fxm7504 PT 24.2 seconds 07/25/2018 Pt Qhz9948 INR 2.2 07/25/2018 Pt Wvi0963 Low Intensity - 1.5-2.0 07/25/2018 Pt Cxs5800 Mod intensity - 2.0-3.0 07/25/2018 Pt Tox5208 Hi intensity - 3.0-4.0 07/25/2018 Pt Pzp3175 PT 38.6 seconds 07/19/2018 Pt Inm7021 INR 4.0 07/19/2018 Pt Yfi1493 Low Intensity - 1.5-2.0 07/19/2018 Pt Qqn2667 Mod intensity - 2.0-3.0 07/19/2018 Pt Nme6935 Hi intensity - 3.0-4.0 07/19/2018 Pt Cpu4646 PT 25.7 seconds 07/11/2018 Pt Dvl5149 INR 2.4 07/11/2018 Pt Xrl2460 Low Intensity - 1.5-2.0 07/11/2018 Pt Gbo0093 Mod intensity - 2.0-3.0 07/11/2018 Pt Rch5407 Hi intensity - 3.0-4.0 07/11/2018 Pt Zqj3914 PT 18.5 seconds 07/08/2018 Pt Xru2602 INR 1.6 07/08/2018 Pt Cos7753 Low Intensity - 1.5-2.0 07/08/2018 Pt Xfh2399 Mod intensity - 2.0-3.0 07/08/2018 Pt Axn3273 Hi intensity - 3.0-4.0 07/08/2018 Pt Wgc3544 PT 27.3 seconds 06/29/2018 Pt Ubl2284 INR 2.6 06/29/2018 Pt Bkw3119 Low Intensity - 1.5-2.0 06/29/2018 Pt Fqf9269 Mod intensity - 2.0-3.0 06/29/2018 Pt Xow2927 Hi intensity - 3.0-4.0 06/29/2018 Pt Hoc9862 PT 24.0 seconds 05/26/2018 Pt Std2391 INR 2.2 05/26/2018 Pt Fxm3639 Low Intensity - 1.5-2.0 05/26/2018 Pt Rcs1334 Mod intensity - 2.0-3.0 05/26/2018 Pt Djv0016 Hi intensity - 3.0-4.0 05/26/2018 Tsh Ord6 [...] 29.6 pg 03/25/2018 Cbc With Differential Ord2 [place]% 9.5 % 03/25/2018 Cbc With Differential Ord2 [...] 2.19 K/ul 03/25/2018 Cbc With Differential Ord2 [place] ABS# 0.8 K/ul 03/25/2018 Cbc With Differential Ord2 Eos ABS# 0.3 K/ul 03/25/2018 Cbc With Differential Ord2 Baso ABS# 0.0 K/ul 03/25/2018 Free T4 Ubb787 FREE T4 1.73 ng/dL 03/25/2018 Comp Metabolic Zcj985 NA 143 mEq/L 03/25/2018 Comp Metabolic Acx018 K 4.6 mEq/L 03/25/2018 Comp Metabolic Swh047 CL 108 mEq/L 03/25/2018 Comp Metabolic Xpf310 CO2 26.0 mEq/L 03/25/2018 Comp Metabolic Nwr346 AN ION GAP 14 03/25/2018 Comp Metabolic Jti690 GL UCOSE 87 mg/dL 03/25/2018 Comp Metabolic Ftm784 Cr eat 1.2 mg/dL 03/25/2018 Comp Metabolic Tas857 eG FR 48 ml/min/1.73m2 03/25 Comp Metabolic Gct441 BUN 18 mg/dL 03/25/2018 Comp Metabolic Dvl753 B/ C Ratio 15.5 Ratio 03/25/2018 Comp Metabolic Tvd607 CA LCIUM 9.1 mg/dL 03/25/2018 Comp Metabolic Zsv781 AL K PHOS 58 U/L 03/25/2018 Comp Metabolic Evx579 T(SGOT) 21 U/L 03/25/2018 Comp Metabolic Tnk337 AL T(SGPT) 13 U/L 03/25/2018 Comp Metabolic Vov660 BI LI T 0.7 mg/dL 03/25/2018 Comp Metabolic Zpb753 AL BUMIN 3.2 g/dL 03/25/2018 Comp Metabolic Rkp059 TP RO 5.5 g/dL 03/25/2018 Comp Metabolic Ixb943 GL OB 2.3 g/dL 03/25/2018 Comp Metabolic Gdg333 A/ G Ratio 1.4 Ratio 03/25/2018 Comp Metabolic Zcz491 Os mo 286 mOsmo 03/25/2018 Lipid Ord30 CHOL 156 mg/dL 03/25/2018 Lipid Ord30 HDL 52.0 mg/dl 03/25/2018 Lipid Ord30 TRIG 98 mg/dL 03/25/2018 Lipid Ord30 LDL 84 mg/dL 03/25/2018 Lipid Ord30 C/HDL 3.0 Ratio 03/25/2018 Pt Dfs8863 PT 29.0 seconds 03/22/2018 Pt Vnc7301 INR 2.7 03/22/2018 Pt Eju1953 Low Intensity - 1.5-2.0 03/22/2018 Pt Akl9407 Mod intensity - 2.0-3.0 03/22/2018 Pt Zvw8242 Hi intensity - 3.0-4.0 03/22/2018 Pt Ylb6083 PT 27.1 seconds 02/25/2018 Pt Tvm6550 INR 2.5 02/25/2018 Pt Qde5699 Low Intensity - 1.5-2.0 02/25/2018 Pt Vxa2276 Mod intensity - 2.0-3.0 02/25/2018 Pt Weg7169 Hi intensity - 3.0-4.0 02/25/2018 Pt Vjh4466 PT 26.1 seconds 01/26/2018 Pt Pnk0630 INR 2.4 01/26/2018 Pt Uyn8623 Low Intensity - 1.5-2.0 01/26/2018 Pt Epi9627 Mod intensity - 2.0-3.0 01/26/2018 Pt Qis8774 Hi intensity - 3.0-4.0 01/26/2018 Pt Ynx7637 PT 22.8 seconds 12/24/2017 Pt Ijz1124 INR 2.0 12/24/2017 Pt Dlg5813 Low Intensity - 1.5-2.0 12/24/2017 Pt Dcp2095 Mod intensity - 2.0-3.0 12/24/2017 Pt Gwl4555 Hi intensity - 3.0-4.0 12/24/2017 Pt Nmm6207 PT 29.4 seconds 11/18/2017 Pt Rvt0543 INR 2.8 11/18/2017 Pt Xhi8203 Low Intensity - 1.5-2.0 11/18/2017 Pt Dld7595 Mod intensity - 2.0-3.0 11/18/2017 Pt Pmu6330 Hi intensity - 3.0-4.0 11/18/2017 Pt Rwt2736 PT 26.6 seconds 09/13/2017 Pt Pgh5128 INR 2.4 09/13/2017 Pt Cqh1147 Low Intensity - 1.5-2.0 09/13/2017 Pt Tjn7082 Mod intensity - 2.0-3.0 09/13/2017 Pt Ggg0118 Hi intensity - 3.0-4.0 09/13/2017 Pt Sct6220 PT 28.2 seconds 08/10/2017 Pt Xwt2813 INR 2.6 08/10/2017 Pt Ctx1260 Low Intensity - 1.5-2.0 08/10/2017 Pt Ylh4646 Mod intensity - 2.0-3.0 08/10/2017 Pt Qrz4028 Hi intensity - 3.0-4.0 08/10/2017 Pt Vbt9442 PT 33.9 seconds 07/27/2017 Pt Jdx7509 INR 3.3 07/27/2017 Pt Pad9228 Low Intensity - 1.5-2.0 07/27/2017 Pt Ixg7434 Mod intensity - 2.0-3.0 07/27/2017 Pt Axr1353 Hi intensity - 3.0-4.0 07/27/2017 Pt Qus5127 PT 29.1 seconds 06/29/2017 Pt Muh2055 INR 2.7 06/29/2017 Pt Aat1586 Low Intensity - 1.5-2.0 06/29/2017 Pt Tio1436 Mod intensity - 2.0-3.0 06/29/2017 Pt Yzv3794 Hi intensity - 3.0-4.0 06/29/2017 Pt Vtf8484 PT 30.3 seconds 06/11/2017 Pt Dmw0471 INR 2.9 06/11/2017 Pt Yaq1252 Low Intensity - 1.5-2.0 06/11/2017 Pt Jdv2666 Mod intensity - 2.0-3.0 06/11/2017 Pt Udz8919 Hi intensity - 3.0-4.0 06/11/2017 Pt Fen0211 PT 39.1 seconds 06/07/2017 Pt Ewi6461 INR 3.9 06/07/2017 Pt Knt7320 Low Intensity - 1.5-2.0 06/07/2017 Pt Mhw5229 Mod intensity - 2.0-3.0 06/07/2017 Pt Sol5583 Hi intensity - 3.0-4.0 06/07/2017 Pt Czj6330 PT 34.2 seconds 05/26/2017 Pt Bdh2374 INR 3.3 05/26/2017 Pt Wqj1708 Low Intensity - 1.5-2.0 05/26/2017 Pt Ccj2976 Mod intensity - 2.0-3.0 05/26/2017 Pt Rcx5006 Hi intensity - 3.0-4.0 05/26/2017 Comp Metabolic Bmd374 NA 138 mEq/L 04/23/2017 Comp Metabolic Dap089 K 4.2 mEq/L 04/23/2017 Comp Metabolic Geu609 CL 101 mEq/L 04/23/2017 Comp Metabolic Mat872 CO2 28.0 mEq/L 04/23/2017 Comp Metabolic Cfq989 AN ION GAP 13 04/23/2017 Comp Metabolic Doc369 GL UCOSE 89 mg/dL 04/23/2017 Comp Metabolic Won917 Cr eat 1.1 mg/dL 04/23/2017 Comp Metabolic Dzl286 eG FR 51 ml/min/1.73m2 04/23 Comp Metabolic Rtv189 BUN 26 mg/dL 04/23/2017 Comp Metabolic Slg910 B/ C Ratio 23.9 Ratio 04/23/2017 Comp Metabolic Wgq349 CA LCIUM 9.4 mg/dL 04/23/2017 Comp Metabolic Anr374 AL K PHOS 95 U/L 04/23/2017 Comp Metabolic Zbn135 T(SGOT) 18 U/L 04/23/2017 Comp Metabolic Kay193 AL T(SGPT) 17 U/L 04/23/2017 Comp Metabolic Eta571 BI LI T 0.7 mg/dL 04/23/2017 Comp Metabolic Izl328 AL BUMIN 3.2 g/dL 04/23/2017 Comp Metabolic Hin446 TP RO 5.6 g/dL 04/23/2017 Comp Metabolic Ufe233 GL OB 2.4 g/dL 04/23/2017 Comp Metabolic Sfo229 A/ G Ratio 1.3 Ratio 04/23/2017 Comp Metabolic Trd235 Os mo 280 mOsmo 04/23/2017 Pt Wbc5065 PT 28.6 seconds 04/23/2017 Pt Oue1149 INR 2.7 04/23/2017 Pt Trj9223 Low Intensity - 1.5-2.0 04/23/2017 Pt Kfy9665 Mod intensity - 2.0-3.0 04/23/2017 Pt Smm0071 Hi intensity - 3.0-4.0 04/23/2017 Pt Boo2250 PT 24.4 seconds 03/16/2017 Pt Chl6561 INR 2.2 03/16/2017 Pt Biu6904 Low Intensity - 1.5-2.0 03/16/2017 Pt Uor7512 Mod intensity - 2.0-3.0 03/16/2017 Pt Gsv4075 Hi intensity - 3.0-4.0 03/16/2017 Pt Rww7327 PT 28.2 seconds 02/24/2017 Pt Kmo6948 INR 2.6 02/24/2017 Pt Pjm8096 Low Intensity - 1.5-2.0 02/24/2017 Pt Bcr1483 Mod intensity - 2.0-3.0 02/24/2017 Pt Tcp9943 Hi intensity - 3.0-4.0 02/24/2017 Pt Kcg1809 PT 26.8 seconds 02/08/2017 Pt Gni8330 INR 2.5 02/08/2017 Pt Uqs0114 Low Intensity - 1.5-2.0 02/08/2017 Pt Hhn1696 Mod intensity - 2.0-3.0 02/08/2017 Pt Awj5135 Hi intensity - 3.0-4.0 02/08/2017 Lipid Ord30 CHOL 150 mg/dL 01/25/2017 Lipid Ord30 HDL 55.0 mg/dl 01/25/2017 Lipid Ord30 TRIG 66 mg/dL 01/25/2017 Lipid Ord30 LDL 82 mg/dL 01/25/2017 Lipid Ord30 C/HDL 2.7 Ratio 01/25/2017 Pt Qoe1159 PT 29.9 seconds 01/25/2017 Pt Ubr1799 INR 2.8 01/25/2017 Pt Tha6227 Low Intensity - 1.5-2.0 01/25/2017 Pt Yhy4253 Mod intensity - 2.0-3.0 01/25/2017 Pt Dez1441 Hi intensity - 3.0-4.0 01/25/2017 Comp Metabolic Rvj979 NA 143 mEq/L 01/25/2017 Comp Metabolic Cli413 K 3.9 mEq/L 01/25/2017 Comp Metabolic Mqq267 CL 108 mEq/L 01/25/2017 Comp Metabolic Kkt835 CO2 23.0 mEq/L 01/25/2017 Comp Metabolic Eql921 AN ION GAP 16 01/25/2017 Comp Metabolic Abp159 GL UCOSE 80 mg/dL 01/25/2017 Comp Metabolic Nsm671 Cr eat 1.0 mg/dL 01/25/2017 Comp Metabolic Fqn142 eG FR 57 ml/min/1.73m2 01/25 Comp Metabolic Cal672 BUN 25 mg/dL 01/25/2017 Comp Metabolic Nwf491 B/ C Ratio 25.0 Ratio 01/25/2017 Comp Metabolic Pkp506 CA LCIUM 8.5 mg/dL 01/25/2017 Comp Metabolic Dlg533 AL K PHOS 81 U/L 01/25/2017 Comp Metabolic Ttq359 T(SGOT) 19 U/L 01/25/2017 Comp Metabolic Vub035 AL T(SGPT) 23 U/L 01/25/2017 Comp Metabolic Xbw385 BI LI T 0.5 mg/dL 01/25/2017 Comp Metabolic Ykx168 AL BUMIN 2.9 g/dL 01/25/2017 Comp Metabolic Bfx044 TP RO 5.1 g/dL 01/25/2017 Comp Metabolic Cpv399 GL OB 2.2 g/dL 01/25/2017 Comp Metabolic Zyy631 A/ G Ratio 1.3 Ratio 01/25/2017 Comp Metabolic Doj648 Os mo 288 mOsmo 01/25/2017 Cbc With [...] 30.7 pg 01/25/2017 Cbc With Differential Ord2 [place]% 8.2 % 01/25/2017 Cbc With Differential Ord2 [...] 3.10 K/ul 01/25/2017 Cbc With Differential Ord2 [place] ABS# 0.8 K/ul 01/25/2017 Cbc With Differential Ord2 Eos ABS# 0.4 K/ul 01/25/2017 Cbc With Differential Ord2 Baso ABS# 0.1 K/ul 01/25/2017 Free T4 Nmw698 FREE T4 2.09 ng/dL 01/25/2017 Tsh Ord6 hTSH II 0.46 uIU/mL 01/25/2017 Pt Nqh8858 PT 26.1 seconds 11/26/2016 Pt Adk0392 INR 2.6 11/26/2016 Pt Efl1230 Low Intensity - 1.5-2.0 11/26/2016 Pt Wke8010 Mod intensity - 2.0-3.0 11/26/2016 Pt Bbm1581 Hi intensity - 3.0-4.0 11/26/2016 Pt Dle0484 PT 26.2 seconds 10/29/2016 Pt Glz6860 INR 2.6 10/29/2016 Pt Dlf7351 Low Intensity - 1.5-2.0 10/29/2016 Pt Vct4149 Mod intensity - 2.0-3.0 10/29/2016 Pt Dbj1490 Hi intensity - 3.0-4.0 10/29/2016 Pt Wbe7112 PT 20.8 seconds 10/13/2016 Pt Dvp4925 INR 1.9 10/13/2016 Pt Yyd3742 Low Intensity - 1.5-2.0 10/13/2016 Pt Ceb0390 Mod intensity - 2.0-3.0 10/13/2016 Pt Twc5846 Hi intensity - 3.0-4.0 10/13/2016 Pt Vtp6585 PT 26.5 seconds 10/01/2016 Pt Vrk5998 INR 2.6 10/01/2016 Pt Rgn8058 Low Intensity - 1.5-2.0 10/01/2016 Pt Eaw7893 Mod intensity - 2.0-3.0 10/01/2016 Pt Ahc4958 Hi intensity - 3.0-4.0 10/01/2016 Pt Buc7811 PT 24.6 seconds 09/14/2016 Pt Iud5912 INR 2.4 09/14/2016 Pt Bql3184 Low Intensity - 1.5-2.0 09/14/2016 Pt Pzx4651 Mod intensity - 2.0-3.0 09/14/2016 Pt Vev3343 Hi intensity - 3.0-4.0 09/14/2016 Pt Qdi9004 PT 18.0 seconds 09/07/2016 Pt Eio5402 INR 1.6 09/07/2016 Pt Kwj5862 Low Intensity - 1.5-2.0 09/07/2016 Pt Sxg1184 Mod intensity - 2.0-3.0 09/07/2016 Pt Iwu0748 Hi intensity - 3.0-4.0 09/07/2016 Pt Fxf2351 PT 23.7 seconds 08/12/2016 Pt Nvj1676 INR 2.2 08/12/2016 Pt Fxt4965 Low Intensity - 1.5-2.0 08/12/2016 Pt Tbo9675 Mod intensity - 2.0-3.0 08/12/2016 Pt Dir2093 Hi intensity - 3.0-4.0 08/12/2016 Pt Ack8889 PT 21.6 seconds 07/27/2016 Pt Lpt2529 INR 2.0 07/27/2016 Pt Qik0938 Low Intensity - 1.5-2.0 07/27/2016 Pt Wvw0706 Mod intensity - 2.0-3.0 07/27/2016 Pt Naf4898 Hi intensity - 3.0-4.0 07/27/2016 Pt Pee8387 PT 26.0 seconds 06/15/2016 Pt Chc5019 INR 2.5 06/15/2016 Pt Rjl2709 Low Intensity - 1.5-2.0 06/15/2016 Pt Qfj2886 Mod intensity - 2.0-3.0 06/15/2016 Pt Sfv4084 Hi intensity - 3.0-4.0 06/15/2016 Pt Wlq4518 PT 18.8 seconds 06/01/2016 Pt Gob5662 INR 1.7 06/01/2016 Pt Zfm1320 Low Intensity - 1.5-2.0 06/01/2016 Pt Gsm6257 Mod intensity - 2.0-3.0 06/01/2016 Pt Vxd5851 Hi intensity - 3.0-4.0 06/01/2016 Pt Zds2659 PT 20.8 seconds 05/12/2016 Pt Jfs4431 INR 1.9 05/12/2016 Pt Lbe0723 Low Intensity - 1.5-2.0 05/12/2016 Pt Gpy1214 Mod intensity - 2.0-3.0 05/12/2016 Pt Jsn4277 Hi intensity - 3.0-4.0 05/12/2016 Pt Dqh0044 PT 24.5 seconds 04/10/2016 Pt Zub9802 INR 2.4 04/10/2016 Pt Kmg3749 Low Intensity - 1.5-2.0 04/10/2016 Pt Cyx4751 Mod intensity - 2.0-3.0 04/10/2016 Pt Dyw1651 Hi intensity - 3.0-4.0 04/10/2016 Pt Fyt7260 PT 26.4 seconds 03/10/2016 Pt Xjh1518 INR 2.6 03/10/2016 Pt Ckl9740 Low Intensity - 1.5-2.0 03/10/2016 Pt Pjl7435 Mod intensity - 2.0-3.0 03/10/2016 Pt Eak4867 Hi intensity - 3.0-4.0 03/10/2016 Pt Efr5011 PT 24.9 seconds 03/06/2016 Pt Dow7592 INR 2.4 03/06/2016 Pt Nut3103 Low Intensity - 1.5-2.0 03/06/2016 Pt Puu7160 Mod intensity - 2.0-3.0 03/06/2016 Pt Kqx8398 Hi intensity - 3.0-4.0 03/06/2016 Pt Qmq2099 PT 21.9 seconds 02/25/2016 Pt Jhq2116 INR 2.0 02/25/2016 Pt Xvj7556 Low Intensity - 1.5-2.0 02/25/2016 Pt Fnx0459 Mod intensity - 2.0-3.0 02/25/2016 Pt Gvl4852 Hi intensity - 3.0-4.0 02/25/2016 Pt Svo4218 PT 21.8 seconds 02/21/2016 Pt Iej7661 INR 2.0 02/21/2016 Pt Yxe2161 Low Intensity - 1.5-2.0 02/21/2016 Pt Xyk0595 Mod intensity - 2.0-3.0 02/21/2016 Pt Ncv7243 Hi intensity - 3.0-4.0 02/21/2016 Culture Urine [id number] URI NE CULTURE SEE NOTES 02/20/2016 Culture Urine [id number] Con tinued Results 02/20/2016 Urine Culture Ucult [...] 29.2 pg 02/14/2016 Cbc With Differential Ord2 [place]% 9.3 % 02/14/2016 Cbc With Differential Ord2 [...] 2.55 K/ul 02/14/2016 Cbc With Differential Ord2 [place] ABS# 0.8 K/ul 02/14/2016 Cbc With Differential Ord2 Eos ABS# 0.4 K/ul 02/14/2016 Cbc With Differential Ord2 Baso ABS# 0.1 K/ul 02/14/2016 Pt Cju0768 PT 27.1 seconds 02/14/2016 Pt Psi0722 INR 2.7 02/14/2016 Pt Unl8547 Low Intensity - 1.5-2.0 02/14/2016 Pt Hvr0747 Mod intensity - 2.0-3.0 02/14/2016 Pt Vyp5474 Hi intensity - 3.0-4.0 02/14/2016 Tsh Ord6 hTSH II 0.80 uIU/mL 02/14/2016 Free T4 Sob080 FREE T4 1.87 ng/dL 02/14/2016 Comp Metabolic Ehr227 NA 139 mEq/L 02/14/2016 Comp Metabolic Dbs628 K 3.8 mEq/L 02/14/2016 Comp Metabolic Qcw669 CL 103 mEq/L 02/14/2016 Comp Metabolic Yeg325 CO2 27.0 mEq/L 02/14/2016 Comp Metabolic Aae785 AN ION GAP 13 02/14/2016 Comp Metabolic Gtr647 GL UCOSE 91 mg/dL 02/14/2016 Comp Metabolic Cpg084 Cr eat 1.0 mg/dL 02/14/2016 Comp Metabolic Uqz433 eG FR 58 ml/min/1.73m2 02/13 Comp Metabolic Ahh761 BUN 16 mg/dL 02/14/2016 Comp Metabolic Cwp135 B/ C Ratio 16.2 Ratio 02/14/2016 Comp Metabolic Jjs958 CA LCIUM 9.0 mg/dL 02/14/2016 Comp Metabolic Piv792 AL K PHOS 88 U/L 02/14/2016 Comp Metabolic Muz137 T(SGOT) 17 U/L 02/14/2016 Comp Metabolic Mim450 AL T(SGPT) 12 U/L 02/14/2016 Comp Metabolic Abp423 BI LI T 0.6 mg/dL 02/14/2016 Comp Metabolic Vbj242 AL BUMIN 3.2 g/dL 02/14/2016 Comp Metabolic Bld498 TP RO 5.8 g/dL 02/14/2016 Comp Metabolic Bkn267 GL OB 2.6 g/dL 02/14/2016 Comp Metabolic Pex464 A/ G Ratio 1.3 Ratio 02/14/2016 Comp Metabolic Npj378 Os mo 278 mOsmo 02/14/2016 Pt Jpx0026 PT 34.6 seconds 02/06/2016 Pt Zju7081 INR 3.7 02/06/2016 Pt Blc3049 Low Intensity - 1.5-2.0 02/06/2016 Pt Udj8300 Mod intensity - 2.0-3.0 02/06/2016 Pt Bmx9305 Hi intensity - 3.0-4.0 02/06/2016 Pt Mhq0334 PT 33.3 seconds 01/23/2016 Pt Htx5313 INR 3.5 01/23/2016 Pt Lmg3236 Low Intensity - 1.5-2.0 01/23/2016 Pt Pce4404 Mod intensity - 2.0-3.0 01/23/2016 Pt Zxu5270 Hi intensity - 3.0-4.0 01/23/2016 Pt Xva2893 PT 30.5 seconds 12/31/2015 Pt Qmg4002 INR 3.2 12/31/2015 Pt Hyb2963 Low Intensity - 1.5-2.0 12/31/2015 Pt Sok5772 Mod intensity - 2.0-3.0 12/31/2015 Pt Com4080 Hi intensity - 3.0-4.0 12/31/2015 Pt Cgg8967 PT 35.6 seconds 12/25/2015 Pt Uqy2332 INR 3.9 12/25/2015 Pt Kcq2942 Low Intensity - 1.5-2.0 12/25/2015 Pt Bup2855 Mod intensity - 2.0-3.0 12/25/2015 Pt Oxd5785 Hi intensity - 3.0-4.0 12/25/2015 Pt Cxk3683 PT 30.8 seconds 11/21/2015 Pt Kfn5653 INR 3.2 11/21/2015 Pt Xqf6197 Low Intensity - 1.5-2.0 11/21/2015 Pt Kln4716 Mod intensity - 2.0-3.0 11/21/2015 Pt Ytv8611 Hi intensity - 3.0-4.0 11/21/2015 Uric Acid [...] 30.0 pg 11/20/2015 Cbc With Differential Ord2 [place]% 8.1 % 11/20/2015 Cbc With Differential Ord2 [...] 2.51 K/ul 11/20/2015 Cbc With Differential Ord2 [place] ABS# 0.9 K/ul 11/20/2015 Cbc With Differential Ord2 Eos ABS# 0.3 K/ul 11/20/2015 Cbc With Differential Ord2 Baso ABS# 0.0 K/ul 11/20/2015 Comp Metabolic Mdj864 NA 137 mEq/L 10/22/2015 Comp Metabolic Vbk981 K 3.9 mEq/L 10/22/2015 Comp Metabolic Tco097 CL 100 mEq/L 10/22/2015 Comp Metabolic Yar950 CO2 31.0 mEq/L 10/22/2015 Comp Metabolic Uwz577 AN ION GAP 10 10/22/2015 Comp Metabolic Bxn061 GL UCOSE 94 mg/dL 10/22/2015 Comp Metabolic Hgo805 Cr eat 1.0 mg/dL 10/22/2015 Comp Metabolic Aqw983 eG FR 55 ml/min/1.73m2 10/21 Comp Metabolic Ipf378 BUN 19 mg/dL 10/22/2015 Comp Metabolic Tou932 B/ C Ratio 18.3 Ratio 10/22/2015 Comp Metabolic Xpl133 CA LCIUM 8.8 mg/dL 10/22/2015 Comp Metabolic Jat386 AL K PHOS 83 U/L 10/22/2015 Comp Metabolic Qfz162 T(SGOT) 15 U/L 10/22/2015 Comp Metabolic Ryx191 AL T(SGPT) 13 U/L 10/22/2015 Comp Metabolic Pvv290 BI LI T 0.9 mg/dL 10/22/2015 Comp Metabolic Iaa592 AL BUMIN 2.8 g/dL 10/22/2015 Comp Metabolic Gsw445 TP RO 5.4 g/dL 10/22/2015 Comp Metabolic Ibh714 GL OB 2.6 g/dL 10/22/2015 Comp Metabolic Fvt230 A/ G Ratio 1.1 Ratio 10/22/2015 Comp Metabolic Bwo853 Os mo 276 mOsmo 10/22/2015 Bili D Ord93 BILI D 0.1 mg/dL 10/22/2015 Bili D Ord93 BILI I 0.8 mg/dL 10/22/2015 Pt Hzi2042 PT 22.8 seconds 10/22/2015 Pt Wcb2591 INR 2.1 10/22/2015 Pt Rmk1123 Low Intensity - 1.5-2.0 10/22/2015 Pt Eah2064 Mod intensity - 2.0-3.0 10/22/2015 Pt Ejr9429 Hi intensity - 3.0-4.0 10/22/2015 Pt Ecd5117 PT 28.0 seconds 09/16/2015 Pt Kdo2537 INR 2.7 09/16/2015 Pt Jkc3697 Low Intensity - 1.5-2.0 09/16/2015 Pt Sks1653 Mod intensity - 2.0-3.0 09/16/2015 Pt Akh4279 Hi intensity - 3.0-4.0 09/16/2015 Tsh Ord6 hTSH II 1.40 uIU/mL 09/16/2015 Free T4 Pmq705 FREE T4 1.73 ng/dL 09/16/2015 Lipid Ord30 CHOL 169 mg/dL 09/16/2015 Lipid Ord30 HDL 66.0 mg/dl 09/16/2015 Lipid Ord30 TRIG 78 mg/dL 09/16/2015 Lipid Ord30 LDL 87 mg/dL 09/16/2015 Lipid Ord30 C/HDL 2.6 Ratio 09/16/2015 Pt Qhh0299 PT 26.6 seconds 08/21/2015 Pt Mnx0011 INR 2.6 08/21/2015 Pt Pia2541 Low Intensity - 1.5-2.0 08/21/2015 Pt Zon7441 Mod intensity - 2.0-3.0 08/21/2015 Pt Rbh2926 Hi intensity - 3.0-4.0 08/21/2015 Comp Metabolic Fnc010 NA 141 mEq/L 08/08/2015 Comp Metabolic Vyl167 K 3.3 mEq/L 08/08/2015 Comp Metabolic Jpq559 CL 102 mEq/L 08/08/2015 Comp Metabolic Jlx798 CO2 31.0 mEq/L 08/08/2015 Comp Metabolic Hri451 AN ION GAP 11 08/08/2015 Comp Metabolic Dso297 GL UCOSE 83 mg/dL 08/08/2015 Comp Metabolic Rtb594 Cr eat 1.0 mg/dL 08/08/2015 Comp Metabolic Jds330 eG FR 55 ml/min/1.73m2 08/08 Comp Metabolic Dve690 BUN 19 mg/dL 08/08/2015 Comp Metabolic Uip655 B/ C Ratio 18.3 Ratio 08/08/2015 Comp Metabolic Oxg665 CA LCIUM 8.9 mg/dL 08/08/2015 Comp Metabolic Nfe063 AL K PHOS 84 U/L 08/08/2015 Comp Metabolic Dee079 T(SGOT) 20 U/L 08/08/2015 Comp Metabolic Ogt506 AL T(SGPT) 18 U/L 08/08/2015 Comp Metabolic Lho212 BI LI T 0.6 mg/dL 08/08/2015 Comp Metabolic Rto167 AL BUMIN 3.3 g/dL 08/08/2015 Comp Metabolic Znt585 TP RO 5.9 g/dL 08/08/2015 Comp Metabolic Xag529 GL OB 2.6 g/dL 08/08/2015 Comp Metabolic Lzd625 A/ G Ratio 1.3 Ratio 08/08/2015 Comp Metabolic Fzl540 Os mo 283 mOsmo 08/08/2015 Cbc With [...] 30.0 pg 08/08/2015 Cbc With Differential Ord2 [place]% 8.2 % 08/08/2015 Cbc With Differential Ord2 [...] 2.90 K/ul 08/08/2015 Cbc With Differential Ord2 [place] ABS# 0.9 K/ul 08/08/2015 Cbc With Differential [...] Ord93 BILI I 0.5 mg/dL 08/08/2015 Pt Gxx7505 PT 31.8 seconds 08/05/2015 Pt Kaj6426 INR 3.2 08/05/2015 Pt Sfu3637 Low Intensity - 1.5-2.0 08/05/2015 Pt Eux6035 Mod intensity - 2.0-3.0 08/05/2015 Pt Eid0074 Hi intensity - 3.0-4.0 08/05/2015 Pt Wel2142 PT 27.4 seconds 06/27/2015 Pt Xxo6334 INR 2.6 06/27/2015 Pt Yfb9963 Low Intensity - 1.5-2.0 06/27/2015 Pt Sfx9202 Mod intensity - 2.0-3.0 06/27/2015 Pt Knx2873 Hi intensity - 3.0-4.0 06/27/2015 Free T4 Awb782 FREE T4 1.89 ng/dL 05/31/2015 Tsh Ord6 [...] Ord2 RDW 15.1 % 05/31/2015 Comp Metabolic Pwh628 NA 140 mEq/L 05/31/2015 Comp Metabolic Bvl599 K 3.3 mEq/L 05/31/2015 Comp Metabolic Dli150 CL 99 mEq/L 05/31/2015 Comp Metabolic Fgu577 CO2 30.0 mEq/L 05/31/2015 Comp Metabolic Ftu652 AN ION GAP 14 05/31/2015 Comp Metabolic Diw871 GL UCOSE 70 mg/dL 05/31/2015 Comp Metabolic Gop794 Cr eat 1.0 mg/dL 05/31/2015 Comp Metabolic Tdk929 eG FR 55 ml/min/1.73m2 05/31 Comp Metabolic Dby406 BUN 23 mg/dL 05/31/2015 Comp Metabolic Okn458 B/ C Ratio 22.1 Ratio 05/31/2015 Comp Metabolic Vez827 CA LCIUM 8.9 mg/dL 05/31/2015 Comp Metabolic Psa613 AL K PHOS 86 U/L 05/31/2015 Comp Metabolic Pty052 T(SGOT) 28 U/L 05/31/2015 Comp Metabolic Gyo063 AL T(SGPT) 30 U/L 05/31/2015 Comp Metabolic Gje203 BI LI T 0.4 mg/dL 05/31/2015 Comp Metabolic Cqu018 AL BUMIN 3.3 g/dL 05/31/2015 Comp Metabolic Qiw549 TP RO 6.0 g/dL 05/31/2015 Comp Metabolic Rcl240 GL OB 2.7 g/dL 05/31/2015 Comp Metabolic Qmw225 A/ G Ratio 1.2 Ratio 05/31/2015 Comp Metabolic Nrj215 Os mo 282 mOsmo 05/31/2015 Pt Oin5903 PT 23.3 seconds 04/15/2015 Pt Gmc9050 INR 2.2 04/15/2015 Pt Kcj4754 Low Intensity - 1.5-2.0 04/15/2015 Pt Oga1201 Mod intensity - 2.0-3.0 04/15/2015 Pt Uii4520 Hi intensity - 3.0-4.0 04/15/2015 Pt Bjj1592 PT 19.5 seconds 04/04/2015 Pt Umt9669 INR 1.7 04/04/2015 Pt Mlz8447 Low Intensity - 1.5-2.0 04/04/2015 Pt Mgm1358 Mod intensity - 2.0-3.0 04/04/2015 Pt Hrx8291 Hi intensity - 3.0-4.0 04/04/2015 Pt Bim4281 PT 39.8 seconds 04/01/2015 Pt Yph3044 INR 4.3 04/01/2015 Pt Lke6752 Low Intensity - 1.5-2.0 04/01/2015 Pt Esd5348 Mod intensity - 2.0-3.0 04/01/2015 Pt Rey7250 Hi intensity - 3.0-4.0 04/01/2015 Metabolic Ord15 [...] Metabolic Ord15 CALCIUM 8.7 mg/dL 02/28/2015 Pt Mxv8417 PT 31.4 seconds 02/28/2015 Pt Bmd7129 INR 3.2 02/28/2015 Pt Bbo3288 Low Intensity - 1.5-2.0 02/28/2015 Pt Ecd7468 Mod intensity - 2.0-3.0 02/28/2015 Pt Pba3760 Hi intensity - 3.0-4.0 02/28/2015 Pt Err3432 PT 23.2 seconds 01/18/2015 Pt Spn4487 INR 2.1 01/18/2015 Pt Obk6853 Low Intensity - 1.5-2.0 01/18/2015 Pt Ior6272 Mod intensity - 2.0-3.0 01/18/2015 Pt Rnc9951 Hi intensity - 3.0-4.0 01/18/2015 Pt Tia3298 PT 18.2 seconds 01/10/2015 Pt Ujn1646 INR 1.6 01/10/2015 Pt Fsj9606 Low Intensity - 1.5-2.0 01/10/2015 Pt Lvw5131 Mod intensity - 2.0-3.0 01/10/2015 Pt Ops7458 Hi intensity - 3.0-4.0 01/10/2015 Review of [...] 03/24/2018 ADMIN PNEUMOCOCCAL V ACCINE SNOMED CT: 35146463 CPT-4: G0009 03/24/2018 FLU VACC PRSV FREE I NC ANTIG Formatting Model/CDA Sections, Assigned to/Dorothea Tan CPT-4: [id number] 03/24/2018 Pneumococcal Polysac charide Vaccine, 23-Valent, Ad CPT-4: 73965 03/24/2018 TRIAMCINOLONE ACET I [place] NOS CPT-4: J3301 06/15/2017 THER/PROPH/DIAG INJ SC/IM CPT-4: 37433 06/15/2017 ADMIN PNEUMOCOCCAL V ACCINE SNOMED CT: 03753095 CPT-4: G0009 03/16/2017 ADMIN INFLUENZA VIRU S VAC CPT-4: G0008 03/16/2017 FLU VAC NO PRSV 4 VA L 3 YRS+ CPT-4: 05451 03/16/2017 PNEUMOCOCCAL VACC [address]: 27304225 CPT-4: 26886 03/16/2017 URINALYSIS NONAUTO W /O SCOPE CPT-4: 59052 08/26/2016 THER/PROPH/DIAG INJ SC/IM CPT-4: 42225 07/22/2016 TRIAMCINOLONE ACET I [place] NOS CPT-4: J3301 07/22/2016 ROCEPHIN, PER 250 MG CPT-4: J0696 07/22/2016 TRIAMCINOLONE ACET I [place] NOS CPT-4: J3301 02/05/2015 Vital Signs Date Vital 07/11/2018 Blood Pressure 1: 102/68 Code: 8480-6 BMI: 34.5 Code: 78736-7 Heart Rate 1: 101 bpm Height: 5'7" SpO2: 98% Weight: 220 lbs 03/24/2018 Blood Pressure 1: 130/72 Code: 8480-6 BMI: 33.4 Code: 48061-6 Heart Rate 1: 82 bpm Height: 5'7" SpO2: 93% Weight: 213 lbs 11/18/2017 Blood Pressure 1: 128/70 Code: 8480-6 BMI: 33.6 Code: 61474-9 Heart Rate 1: 98 bpm Height: 5'7" SpO2: 97% Weight: 214 lbs 8 oz 09/30/2017 Blood Pressure 1: 100/50 Code: 8480-6 BMI: 34.0 Code: 78186-8 Heart Rate 1: 66 bpm Height: 5'7" SpO2: 96% Weight: 217 lbs 08/17/2017 Blood Pressure 1: 104/60 Code: 8480-6 BMI: 33.7 Code: 07139-9 Heart Rate 1: 99 bpm Height: 5'7" SpO2: 97% Weight: 215 lbs 06/15/2017 Blood Pressure 1: 120/64 Code: 8480-6 BMI: 33.5 Code: 72035-2 Heart Rate 1: 91 bpm Height: 5'7" SpO2: 94% Weight: 214 lbs 04/01/2017 Blood Pressure 1: 110/68 Code: 8480-6 BMI: 154.4 Code: 17185-2 Heart Rate 1: 66 bpm Height: 2'7" SpO2: 95% Weight: 211 lbs 03/16/2017 Blood Pressure 1: 130/72 Code: 8480-6 BMI: 33.0 Code: 69351-5 Heart Rate 1: 95 bpm Height: 5'7" SpO2: 97% Weight: 211 lbs 02/09/2017 Blood Pressure 1: 120/70 Code: 8480-6 BMI: 32.9 Code: 10969-4 Heart Rate 1: 78 bpm Height: 5'7" SpO2: 96% Weight: 210 lbs 10/13/2016 Blood Pressure 1: 118/76 Code: 8480-6 BMI: 32.6 Code: 89100-1 Heart Rate 1: 97 bpm Height: 5'7" SpO2: 98% Weight: 208 lbs 07/31/2016 Blood Pressure 1: 110/64 Code: 8480-6 BMI: 32.1 Code: 59876-4 Heart Rate 1: 79 bpm Height: 5'7" SpO2: 94% Weight: 205 lbs 07/22/2016 Blood Pressure 1: 108/74 Code: 8480-6 BMI: 32.1 Code: 47597-5 Heart Rate 1: 71 bpm Height: 5'7" SpO2: 97% Temperature: 36.9 (C ) / 98.4 (F) Weight: 205 lbs 05/01/2016 Blood Pressure 1: 120/72 Code: 8480-6 BMI: 32.7 Code: 36843-5 Heart Rate 1: 75 bpm Height: 5'7" SpO2: 94% Weight: 209 lbs 04/06/2016 Blood Pressure 1: 106/62 Code: 8480-6 BMI: 32.7 Code: 32942-6 Heart Rate 1: 83 bpm Height: 5'7" SpO2: 97% Weight: 209 lbs 03/06/2016 Blood Pressure 1: 11268 Code: 8480-6 BMI: 32.7 Code: 31898-3 Heart Rate 1: 90 bpm Height: 5'7" SpO2: 97% Weight: 209 lbs 03/03/2016 Blood Pressure 1: 120/62 Code: 8480-6 BMI: 32.7 Code: 17318-4 Heart Rate 1: 92 bpm Height: 5'7" SpO2: 98% Weight: 209 lbs 02/07/2016 Blood Pressure 1: 110/64 Code: 8480-6 BMI: 32.7 Code: 32793-9 Heart Rate 1: 87 bpm Height: 5'7" SpO2: 97% Weight: 209 lbs 12/13/2015 Blood Pressure 1: 110/64 Code: 8480-6 BMI: 33.5 Code: 11951-5 Heart Rate 1: 90 bpm Height: 5'7" SpO2: 97% Weight: 214 lbs 12/03/2015 Blood Pressure 1: 132/76 Code: 8480-6 BMI: 33.4 Code: 82604-8 Heart Rate 1: 82 bpm Height: 5'7" SpO2: 99% Weight: 213 lbs 11/20/2015 Blood Pressure 1: 108/68 Code: 8480-6 BMI: 32.4 Code: 11516-1 Heart Rate 1: 77 bpm Height: 5'7" SpO2: 97% Weight: 207 lbs 09/17/2015 Blood Pressure 1: 122/76 Code: 8480-6 BMI: 33.0 Code: 25948-3 Heart Rate 1: 91 bpm Height: 5'7" SpO2: 97% Weight: 211 lbs 05/31/2015 Blood Pressure 1: 128/82 Code: 8480-6 BMI: 33.4 Code: 44872-0 Heart Rate 1: 98 bpm Height: 5'7" SpO2: 99% Weight: 213 lbs 02/05/2015 Blood Pressure 1: 128/80 Code: 8480-6 BMI: 32.6 Code: 87206-8 Heart Rate 1: 86 bpm Height: 5'7" SpO2: 97% Weight: 208 lbs 11/20/2014 Blood Pressure 1: 128/90 Code: 8480-6 BMI: 30.9 Code: 78029-6 Heart Rate 1: 94 bpm Height: 5'7" [...] Findings Denies fever 05/31/2015 None hypothyroid Quality rhit silvestre 02/05/2015 None hypothyroid Pertinent Findings coarse [...] Denies extremity weakness 11/20/2014 None hypothyroid Quality rhit silvestre 11/20/2014 None hypothyroid Pertinent Findings coarse hair 11/20/2014 None hypothyroid Pertinent Findings dry skin 11/20/2014 None hypothyroid Pertinent Findings hair loss 11/20/2014 None edema Quality intermitte nt 11/20/2014 None edema Location on both l egs 11/20/2014 None edema Location on both a nkles 11/20/2014 None Advance Directives Advance Directives Present Encounters Encounter Performer Loca tion Codes Date ([id number]) [id number] EST. P ATIENT, LEVEL IV Diagnosis: Atrophy of thyroid (acquired)[ICD10: E03.4] Diagnosis: Essential (primary) hypertension[ICD10: I10] Diagnosis: Other fatigue[ICD10: R53.83] Diagnosis: Localized edema[ICD10: R60.0] Valerie Pisano MD, [facility] CPT-4: 77407 07/11/2018 ([id number]) 21700 EST. P ATIENT, LEVEL IV Diagnosis: Essential (primary) hypertension[ICD10: I10] Diagnosis: Atrophy of thyroid (acquired)[ICD10: E03.4] Diagnosis: Chronic atrial fibrillation[ICD10: I48.2] Valerie Pisano MD, [facility] CPT-4: 16540 03/24/2018 ([id number]) 33427 EST. P ATIENT, LEVEL IV Diagnosis: Essential (primary) hypertension[ICD10: I10] Diagnosis: Atrophy of thyroid (acquired)[ICD10: E03.4] Diagnosis: Chronic atrial fibrillation[ICD10: I48.2] Valerie Pisano MD, [facility] CPT-4: 29968 11/18/2017 53600 EST. PATIENT, LEVEL IV Diagnosis: Localized edema[ICD10: R60.0] Roxie Pisano MD, [facility] CPT-4: 44046 09/30/2017 ([id number]) 52996 EST. P ATIENT, LEVEL III Diagnosis: Essential (primary) hypertension[ICD10: I10] Valerie Pisano MD, [facility] CPT-4: 62763 08/17/2017 ([id number]) 70879 EST. P ATIENT, LEVEL IV Diagnosis: Essential (primary) hypertension[ICD10: I10] Diagnosis: Atrophy of thyroid (acquired)[ICD10: E03.4] Diagnosis: Chronic atrial fibrillation[ICD10: I48.2] Diagnosis: Cervicalgia[ICD10: M54.2] Diagnosis: Other muscle spasm[ICD10: M62.838] Valerie Pisano MD, [facility] CPT- 4: 86112 06/15/2017 [id number] EST. PATIENT, LEVEL III Diagnosis: Laceration without foreign body of other finger without damage to nail, initial encounter[ICD10: S61.218A] Roxie Pisano MD, [facility] CPT-4: 79674 04/01/2017 ([id number]) 01943 EST. 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 PATIENT, LEVEL III Diagnosis: Other acute sinusitis[ICD10: J01.80] Diagnosis: Other allergic rhinitis[ICD10: J30.89] Roxie Pisano MD, [facility] CPT-4: 92090 07/31/2016 ([id number]) 54482 EST. P ATIENT, LEVEL III Diagnosis: Acute recurrent maxillary sinusitis[ICD10: J01.01] Valerie Pisano MD, [facility] CPT-4: 68029 07/22/2016 96037 EST. PATIENT, LEVEL IV Diagnosis: Essential (primary) hypertension[ICD10: I10] Diagnosis: Other allergic rhinitis[ICD10: J30.89] Diagnosis: Localized edema[ICD10: R60.0] Roxie Pisano MD, [facility] CPT-4: 54712 05/01/2016 95512 EST. PATIENT, LEVEL III Diagnosis: Cellulitis of left lower limb[ICD10: L03.116] Diagnosis: Localized edema[ICD10: R60.0] Roxie Pisano MD, [facility] CPT-4: 81395 04/06/2016 ([id number]) Miscellaneou s no charge Diagnosis: Cellulitis of left lower limb[ICD10: L03.116] Diagnosis: Localized edema[ICD10: R60.0] Roxie Pisano MD, [facility] CPT-4: 51711 03/10/2016 ([id number]) Miscellaneou s no charge Diagnosis: Cellulitis of left lower limb[ICD10: L03.116] Roxie Pisano MD, [facility] CPT-4: 55850 03/06/2016 33745 EST. PATIENT, LEVEL IV Diagnosis: Cellulitis of left lower limb[ICD10: L03.116] Diagnosis: Localized edema[ICD10: R60.0] Roxie Pisano MD, [facility] CPT-4: 74628 03/03/2016 ([id number]) 36005 EST. 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 P ATIENT, LEVEL III Diagnosis: Iliotibial band syndrome, right leg[ICD10: M76.31] Diagnosis: Localized edema[ICD10: R60.0] Brielle Pisano MD, [facility] CPT- 4: 38694 12/13/2015 ([id number]) 36357 EST. P ATIENT, LEVEL III Diagnosis: Localized edema[ICD10: R60.0] Diagnosis: Essential (primary) hypertension[ICD10: I10] Brielle Pisano MD, [facility] CPT-4: 78937 12/03/2015 ([id number]) 69273 EST. 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 P ATIENT, LEVEL IV Diagnosis: Localized edema[ICD10: R60.0] Diagnosis: Other specified hypothyroidism[ICD10: E03.8] Diagnosis: Essential (primary) hypertension[ICD10: I10] [facility] CPT-4: 33243 05/31/2015 ([id number]) 35553 EST. P ATIENT, LEVEL III Diagnosis: ALLERGIC RHINITIS[ICD9: 477.9] Diagnosis: ESSENTIAL HYPERTENSION[ICD9: 401.9] [facility] CPT-4: 72669 02/05/2015 ([id number]) OFFICE [facility] [place] [facility] LEVEL 4 Diagnosis: ESSENTIAL HYPERTENSION[ICD9: 401.9] Diagnosis: HYPOTHYROIDISM[ICD9: 244.9] Diagnosis: ACTINIC KERATOSIS[ICD9: 702.0] [facility] CPT-4: 10525 11/20/2014 Plan of Care Planned Activity Notes C odes Status Date Patient Education: Patient Medication Summary Completed 07/29/2018 Appointment: Brielle Cavazos WPtel: [address] [place], [place] [phone] (15 min) Moderate 07/12/2018 Visit Plan: Hypertension [...] daily. 07/11/2018 Appointment: Valerie Pisano WPtel: [phone] [facility] (15 min) Moderate 07/11/2018 Patient Education: [...] today. 03/24/2018 Appointment: Valerie Pisano WPtel: [phone] [facility] (15 min) Moderate 03/24/2018 Patient Education: Patient [...] control. 11/18/2017 Appointment: Valerie Pisano WPtel: [phone] [facility] (15 min) Moderate 11/18/2017 Patient Education: Patient Medication Summary Completed 11/18/2017 Referral: [facility] WPtel: [address] Pt notified at appointment Appointment Confirmed [...] Unna Boots 09/30/2017 Appointment: Roxie Cazares WPtel: [facility] (30 min) Complex 09/30/2017 Patient Education: Patient Medication Summary Completed 09/30/2017 Care Plan: Referral Order SNOMED-CT : [id number] Pending 09/30/2017 Visit Plan: Hypertension - well [...] time. 08/17/2017 Appointment: Valerie Pisano WPtel: [phone] [facility] (15 min) Moderate 08/17/2017 Patient Education: [...] neck muscles. allergies - kenalog 40mg im Motility Count squibb - lot # [id number] expires september 2018 06/15/2017 Visit Plan: Hypertension [...] neck muscles. 06/15/2017 Appointment: Valerie Pisano WPtel: [address] [place], [place] [address] (15 min) Moderate 06/15/2017 Patient Education: Patient Medication Summary Completed 06/15/2017 Care Plan: Referral Order SNOMED-CT : [id number] Pending 06/15/2017 Appointment: Nurse Visit 04/05/2017 Appointment: [...] booster. 04/01/2017 Appointment: Roxie Cazares WPtel: [phone] [phone] (15 min) Moderate 04/01/2017 Patient Education: Patient [...] today 03/16/2017 Appointment: Valerie Pisano WPtel: [phone] [facility] (15 min) Moderate 03/16/2017 Patient Education: Patient [...] 02/09/2017 [phone] ([facility]) Moderate 02/09/2017 Patient Education: Patient Medication Summary Completed 02/09/2017 Patient Education: Obesity Completed 02/09/2017 Patient Education: Hypertension Completed 02/09/2017 Patient Education: Patient Medication Summary Completed 01/25/2017 Visit Plan: Hypertension - well con trofedeed [...] nystatin 10/13/2016 [phone] (15 min) Moderate 10/13/2016 Patient Education: Patient Medication Summary Completed 10/13/2016 Patient Education: Obesity Completed 10/13/2016 Patient Education: Hypertension Completed 10/13/2016 Care Plan: Urine Culture Pending 08/31/2016 Appointment: Roxie Cazares WPtel: [facility] Lab Draw 08/27/2016 Appointment: Nurse Visit 08/26/2016 [...] allergy spray. 07/31/2016 Appointment: Brielle Cavazos WPtel: [phone] (30 min) Complex 07/31/2016 Patient Education: Patient Medication Summary Completed 07/31/2016 Patient Education: Obesity Completed 07/31/2016 Visit Plan: Sinusitis - Pt has acut e infection - pain in face, maxillary region, Pt informed to use decongestant, RX given to patient, sinus rinses also recommended. Call if symptoms do not show improvement. 07/22/2016 Appointment: Valerie Pisano WPtel: [facility] (15 min) Moderate 07/22/2016 Patient Education: [...] peripheral edema. 05/01/2016 Appointment: Brielle Cavazos WPtel: [phone] (30 min) Complex 05/01/2016 Patient Education: Patient [...] peripheral edema. 04/06/2016 Appointment: [facility]ares [facility] ([facility] min) Complex 04/06/2016 Patient Education: Patient Medication Summary Completed 04/06/2016 Patient Education: Obesity Completed 04/06/2016 Visit Plan: left foot - improved - pt finished with antibiotics - continue to monitor - notify clinic with any concerns. Repeat INR today. 03/10/2016 Appointment: Brielle Cavazos WPtel: [phone] (30 min) Complex 03/10/2016 Patient Education: Patient Medication Summary Completed 03/10/2016 Visit Plan: Cellulitis - continue w ith oral antibiotics as previously directed, return to clinic as previously directed, call for acute change in symptoms, worsening redness, warmth, discharge. 03/06/2016 Appointment: Brielle Cavazos WPtel: [facility] [place], [place] [id number] (15 min) Moderate 03/06/2016 Patient Education: Patient Medication Summary Completed 03/06/2016 Patient Education: Obesity Completed 03/06/2016 Visit Plan: Cellulitis - continue w ith oral antibiotics as previously directed, return to clinic as previously directed, call for acute change in symptoms, worsening redness, warmth, discharge. 03/03/2016 Appointment: Brielle Cavazos WPtel: [id number] [place] [address] (15 min) Moderate 03/03/2016 Patient Education: Patient [...] and 3.5. 02/07/2016 Appointment: Brielle Cavazos WPtel: [id number] [place] [address] (30 min) Complex 02/07/2016 Patient Education: Patient Medication Summary Completed 02/07/2016 Patient Education: Obesity Completed 02/07/2016 Patient Education: Hypertension Completed 02/07/2016 Appointment: Brielle Cavazos WPtel: [phone] (30 min) Complex 02/04/2016 Visit Plan: Iliotibial [...] edema. 12/13/2015 Appointment: [phone] (15 min) Moderate 12/13/2015 Patient Education: [...] home. 12/03/2015 Appointment: [phone] [place] (30 min) Complex 12/03/2015 Patient [...] Hypertension Completed 02/05/2015 Appointment: Valerie Pisano WPtel: [facility] (15 min) Moderate 01/29/2015 Visit Plan: [...] of control. 11/20/2014 Appointment: [phone] [place] ([place] New Patient 11/20/2014 Patient Education: Patient Medication Summary Completed 11/20/2014 Patient Education: Hypertension Completed 11/20/2014 Patient Education: Patient Medication Summary Completed 10/19/2014 Referral: [facility] WPtel: Referral Appointment Requested Referral: [facility] WPtel: 1 [facility] [place] Referral Appointment Confirmed Instructions Comment . [...] spray in the nasal steroid allergy spray. 1 pill wed/wed/wed, 1/2 pill //sat/sun take [...] advanced age Pneumovax 23 given today. . Hypertension - wel l controlled - [...] therapy - will refer to [facility]. RX for voltaren to neck muscles. allergies - kenalog 40mg im bristol [facility] - lot # [id number] expires september 2018 LASIX TAKE 40MG IN T HE MORNING [...] change in blood pressure readings at home. check coumadin level on wednesday Nasal spray- [...] therapy - will refer to [facility]. RX for voltaren to neck [...] change in blood pressure readings at home. get blood work one w togiak before next appt - fasting labs Decrease [...] back to one pill twice daily. . left foot - improv ed - pt finished with antibiotics - continue to monitor - notify clinic with any concerns. Repeat INR today. . Edema - pt has bee n advised to elevate legs to prevent dependent edema, compression has been recommended to help to naturally decrease peripheral edema. Diuretic use has been discussed and pt has been instructed in appropriate use of such medication as necessary to further attempt to reduce peripheral edema. Will refer to wound care for possible Unna [facility]s glez colon healt h or culturelle while on the levaquin. Increase lasix and [...]
--- OUTSIDE RECORDS SUMMARY | 2019-09-12 11:46 | XMS REPORT | CCD ---
Author Author Clara Pisano Organization [facility] Address [address] [place] [address] Phone Care Team Providers [employer] Name Role Phone PP Unavailable CCM Unavailable Summary Purpose Interface Exchange Insurance Providers Payer name Policy type / Coverage type Covered alliance party ID Effective Begin Date Effective End Date WPS Medicare Part B Medicare Part B [id number] 2018 Unknown [employer] Medicare Part B [id number] Unknown Family history Sister Diagnosis Age At Onset defect Unknown Breast cancer Unknown Daughter Diagnosis Age At Onset Breast cancer Unknown Mother Diagnosis Age At Onset No Family Disease Entered N/A Social History Social History Element Codes Description Effective Dates Marital status Unknown M arried Lane 11/20/2014 Number of children Unknown 6 11/20/2014 Employment Unknown Retir ed 11/20/[address]: 0994419 Quit over 10 years ago 1963 11/20/2014 [...] ICD-9: 883.0 ICD-10: S61.218A Active 04/01/2017 Unknown prison (current) use of anticoagulants ICD-9: V58.61 ICD-10: [...] Unknown HYPOTHYROIDISM ICD-9: 244.9 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 ICD-9: [...] encounter ICD-9: 883.0 ICD-10: S61.218A 04/01/2017 Active prison (current) use of anticoagulants ICD-9: V58.61 ICD-10: [...] 11/19/2014 Active HYPOTHYROIDISM ICD-9: 244.9 11/19/2014 Active prison current us e of anticoagulant therapy ICD-9: V58.61 10/19/2014 Active Medications Medication Codes Instruc tions Start Date Stop Date Sta Fill Instructions meclizine 25 mg tablet RxNorm: 004072 1 Tablet(s) PO TID as needed Dizziness 07/22/2018 No Stop Date Active meclizine 25 mg tablet RxNorm: 290786 1 Tablet(s) PO TID as needed Dizziness 07/19/2018 07/21/2018 In active Coumadin 4 mg tablet RxNorm: 688810 1 Tablet(s) PO daily except 1.5 pills on WEDNESDAY AND Wednesday07/11/2018 07/05/2019 Active this is an update to her RX - she will let you know when she needs refill furosemide 40 mg tablet RxNorm: 979604 1 Tablet(s) BID take 1.5 tabs twice a da y x 7 days then 1 pill daily thereafter 07/11/2018 02/05/2019 Active warfarin 5 mg tablet RxNorm: 120742 Tablet(s) TAKE ONE TABLET BY MOUTH DAILY EXCEPT / TAKE 4 MG 04/06/2018 08/22/2019 Active diltiazem 60 mg tablet RxNorm: 772364 1/2 Tablet(s) PO QID 03/24/2018 No Stop Date Active levothyroxine 125 mc g tablet RxNorm: 489664 TAKE ONE TABLET BY MO UTH DAILY ON WEDNESDAY, WED, AND WEDNESDAY, AND 1/2 TABLET ON , , WED AND WEDNESDAY. TAKE ON AN EMPTY STOMACH 02/02/2018 07/31/2018 Inactive Coumadin 4 mg tablet RxNorm: 378515 TAKE ONE TABLET BY MOUTH DAILY ON AND Wednesday10/14/2017 07/10/2018 Inactive nystatin 100,000 uni t/gram topical cream RxNorm: 575203 1 Application TOP TID 08/17/2017 No Stop Date Active triamcinolone aceton sreekanth 0.025 % topical cream RxNorm: 2703943 1 Application TOP BI D 08/17/2017 No Stop Date Active Voltaren 1 % topical gel RxNorm: 397513 2 Gram(s) TOP TID luiz ly to shoulder and neck 08/17/2017 No Stop Date Active levothyroxine 125 mc g tablet RxNorm: 413775 1 Tablet(s) UD 1 pill wed/wed/wed, 1/2 pill //sat/sun take ON AN EMPTY STOMACH 08/05/2017 02/01/2018 Inactive Coumadin 4 mg tablet RxNorm: 125835 1 Tablet(s) PO Wed/07/29/2017 10/13/2017 Inactive warfarin 5 mg tablet RxNorm: 380370 TAKE 1 AND 1/2 TABLETS BY MOUTH ON AND WEDNESDAY. TAKE ONLY 1 TABLET BY MOUTH ALL OTHER DAYS OF THE WEEK 07/12/2017 04/05/2018 In active furosemide 40 mg tablet RxNorm: 775478 Tablet(s) BID TAKE ONE TABLET BY MOUTH D AILY 06/15/2017 07/10/2018 Inactive Voltaren 1 % topical gel RxNorm: 484005 2 Gram(s) TOP TID luiz ly to shoulder and neck 06/15/2017 08/16/2017 Inactive Keflex 500 mg capsule RxNorm: 182866 1 Capsule(s) PO TID 04/01/2017 04/07/2017 Inactive furosemide 40 mg tablet RxNorm: 926522 TAKE ONE TABLET BY MOUTH DAILY 03/18/2017 06/14/2017 In active Claritin-D 12 Hour 5 mg-120 mg tablet,extended release RxNorm: 0227605 1 Tablet(s) PO BID 03/16/2017 05/14/2017 Inactive Lipitor 20 mg tablet RxNorm: 698476 1 Tablet(s) PO daily 02/09/2017 03/10/2017 Inactive lisinopril 2.5 mg ta blet RxNorm: 418460 1 Tablet(s) PO daily 02/09/2017 03/10/2017 Inactive Nasonex 50 mcg/actua tion [place] RxNorm: 6310733 1 [place] NASAL BID 02/09/2017 09/06/2017 Inactive levothyroxine 125 mc g tablet RxNorm: 403238 1 Tablet(s) UD 1 pill wed/wed/wed, 1/2 pill //sat/sun take ON AN EMPTY STOMACH 02/09/2017 08/04/2017 Inactive fluorouracil 5 % top ical cream RxNorm: 184250 1 Application TOP BID 02/09/2017 02/18/2017 Inactive potassium chloride E R 20 mEq tablet,extended release RxNorm: 630303 Tablet(s) TAKE ONE TABLET BY MOUTH DAILY 02/08/2017 02/02/2018 Inactive warfarin 5 mg tablet RxNorm: 907627 TAKE 1 AND 1/2 TABLETS BY MOUTH ON AND WEDNESDAY. TAKE ONLY 1 TABLET BY MOUTH ALL OTHER DAYS OF THE WEEK 12/14/2016 05/30/2017 In active potassium chloride E R 20 mEq tablet,extended release RxNorm: 267067 TAKE ONE TABLET BY MOUTH DAILY 10/29/2016 01/26/2017 Inactive warfarin 5 mg tablet RxNorm: 416930 TAKE 1 AND 1/2 TABLETS BY MOUTH ON AND WEDNESDAY. TAKE ONLY 1 TABLET BY MOUTH ALL OTHER DAYS OF THE WEEK 10/27/2016 12/13/2016 In active nystatin 100,000 uni t/gram topical cream RxNorm: 472827 1 Application TOP TID 10/13/2016 08/16/2017 In active nitrofurantoin 50 mg capsule RxNorm: 318853 1 Capsule(s) PO BID 09/04/2016 09/03/2016 Inactive nitrofurantoin macro crystal 50 mg capsule RxNorm: 031923 1 Capsule(s) PO BID 09/04/2016 09/10/2016 In active Cipro 500 mg tablet RxNorm: 142191 1 Tablet(s) PO BID 08/26/2016 10/12/2016 Inactive Zyrtec 10 mg tablet RxNorm: 6020184 1 Tablet(s) PO daily 07/31/2016 08/29/2016 Inactive prednisone 20 mg tablet RxNorm: 260932 2 Tablet(s) PO daily 07/31/2016 08/02/2016 Inactive Kenalog 40 mg/mL zohra pension for injection RxNorm: 9174570 Milliliter(s) Inj 07/22/2016 07/22/2016 In active ceftriaxone 500 mg s olution for injection RxNorm: 7763197 Inj 07/22/2016 07/22/2016 Inactive Flonase Allergy Reli ef 50 mcg/actuation nasal spray,suspension RxNorm: 2215940 1 [place] NASAL BID 07/22/2016 08/20/2016 Inactive azithromycin 250 mg tablet RxNorm: 882843 2 Tablet(s) PO on day #1, then 1 pill daily x 4 days 07/22/2016 10/12/2016 Inactive warfarin 5 mg tablet RxNorm: 610522 TAKE 1 AND 1/2 TABLETS BY MOUTH ON AND WEDNESDAY. TAKE ONLY 1 TABLET BY MOUTH ALL OTHER DAYS OF THE WEEK 07/09/2016 09/30/2016 In active levothyroxine 125 mc g tablet RxNorm: 330174 Tablet(s) TAKE ONE TA BLET BY MOUTH DAILY ON AN EMPTY STOMACH 06/23/2016 02/08/2017 Inactive levothyroxine 125 mc g tablet RxNorm: 197093 TAKE ONE TABLET BY MO UTH DAILY ON AN EMPTY STOMACH 06/23/2016 06/22/2016 Inactive levothyroxine 125 mc g tablet RxNorm: 066663 TAKE ONE TABLET BY MO UTH DAILY ON AN EMPTY STOMACH 06/23/2016 08/04/2017 Inactive cetirizine 10 mg tablet RxNorm: 3247163 TAKE ONE TABLET BY MOUTH DAILY 06/16/2016 10/13/2016 In active furosemide 40 mg tablet RxNorm: 722249 Tablet(s) TAKE ONE TABLET BY MOUTH DAILY 06/05/2016 12/01/2016 In active cetirizine 10 mg tablet RxNorm: 5462827 1 Tablet(s) PO daily 05/01/2016 05/30/2016 Inactive Levaquin 250 mg tablet RxNorm: 114069 Tablet(s) PO 2 pills day one and 1 pill day 2-7 04/06/2016 07/21/2016 Inactive warfarin 5 mg tablet RxNorm: 923062 Tablet(s) 1/2 TABLETS BY MOUTH ON AND WEDNESDAY. TAKE ONLY 1 TABLET BY MOUTH ALL OTHER DAYS OF THE WEEK 03/18/2016 07/07/2016 In active triamcinolone aceton sreekanth 0.025 % topical cream RxNorm: 7880000 1 Application TOP BI D 03/10/2016 08/16/2017 In active potassium chloride E R 20 mEq tablet,extended release RxNorm: 658032 1 Tablet(s) PO daily 03/04/2016 06/01/2016 Inactive Levaquin 250 mg tablet RxNorm: 835759 Tablet(s) PO 2 pills day one and 1 pill day 2-7 03/04/2016 04/05/2016 Inactive Levaquin 250 mg tablet RxNorm: 976425 Tablet(s) PO 2 pills day one and 1 pill day 2-7 03/03/2016 03/03/2016 Inactive potassium chloride E R 20 mEq tablet,extended release RxNorm: 964484 1 Tablet(s) PO daily 03/03/2016 03/03/2016 Inactive Cipro 500 mg tablet RxNorm: 030646 1 Tablet(s) PO BID 02/20/2016 07/21/2016 Inactive Cipro 500 mg tablet RxNorm: 656283 1 Tablet(s) PO BID 02/20/2016 02/19/2016 Inactive furosemide 40 mg tablet RxNorm: 897781 TAKE ONE TABLET BY MOUTH DAILY 01/27/2016 01/26/2016 In active warfarin 5 mg tablet RxNorm: 642508 TAKE 1 AND 1/2 TABLETS BY MOUTH ON AND WEDNESDAY. TAKE ONLY 1 TABLET BY MOUTH ALL OTHER DAYS OF THE WEEK 01/27/2016 01/26/2016 In active furosemide 40 mg tablet RxNorm: 611095 TAKE ONE TABLET BY MOUTH DAILY 01/27/2016 06/04/2016 In active warfarin 5 mg tablet RxNorm: 159916 TAKE 1 AND 1/2 TABLETS BY MOUTH ON AND WEDNESDAY. TAKE ONLY 1 TABLET BY MOUTH ALL OTHER DAYS OF THE WEEK 01/27/2016 03/17/2016 In active potassium chloride E R 20 mEq tablet,extended release RxNorm: 373542 1 Tablet(s) PO daily 11/20/2015 03/02/2016 Inactive furosemide 40 mg tablet RxNorm: 062170 TAKE ONE TABLET BY MOUTH DAILY 11/12/2015 01/26/2016 In active Zovirax 5 % topical cream RxNorm: 171130 TOP QID 0 09/24/2015 09/23/2015 Inactive Zovirax 5 % topical cream RxNorm: 668740 TOP QID 0 09/24/2015 11/19/2015 Inactive nystatin 100,000 uni t/gram topical cream RxNorm: 157716 1 Application TOP TID 09/17/2015 10/12/2016 In active warfarin 5 mg tablet RxNorm: 413283 TAKE 1 AND 1/2 TABLETS BY MOUTH ON AND WEDNESDAY. TAKE ONLY 1 TABLET BY MOUTH ALL OTHER DAYS OF THE WEEK 08/19/2015 01/05/2016 In active loratadine 10 mg tablet RxNorm: 019523 1 Tablet(s) PO daily 07/30/2015 07/23/2016 Inactive loratadine 10 mg tablet RxNorm: 336859 1 Tablet(s) PO daily 07/30/2015 07/29/2015 Inactive furosemide 40 mg tablet RxNorm: 172182 TAKE ONE TABLET BY MOUTH DAILY 06/24/2015 11/11/2015 In active levothyroxine 125 mc g tablet RxNorm: 429427 1 Tablet(s) PO daily 05/31/2015 05/24/2016 Inactive furosemide 40 mg tablet RxNorm: 168690 1 Tablet(s) PO daily 04/05/2015 06/23/2015 Inactive warfarin 5 mg tablet RxNorm: 220535 TAKE 1 AND 1/2 TABLETS BY MOUTH ON AND WEDNESDAY. TAKE ONLY 1 TABLET BY MOUTH ALL OTHER DAYS OF THE WEEK 02/12/2015 07/29/2015 In active Flonase Allergy Reli ef 50 mcg/actuation nasal spray,suspension RxNorm: 2 [place] NASAL daily 02/05/2015 03/06/2015 Inactive Kenalog 40 mg/mL zohra pension for injection RxNorm: 6096965 Milliliter(s) Inj 02/05/2015 02/05/2015 In active warfarin 5 mg tablet RxNorm: 335299 Take 7.5mg (1 1/2 tablets) Wednesday and and 1 Tablet(s) PO (5mg) all other days 01/11/2015 02/09/2015 Inactive levothyroxine 125 mc g tablet RxNorm: 964250 1 Tablet(s) PO every other day 01/01/2015 05/30/2015 In active alternate with 150 levothyroxine 150 mc g tablet RxNorm: 723805 1 Tablet(s) PO every other day 01/01/2015 05/30/2015 In active alternate with 125 loratadine 10 mg tablet RxNorm: 590591 Tablet(s) PO as needed No Start Date Active Fish Oil 1,000 mg ca psule RxNorm: 1 Capsule(s) PO TID No Start Date Active magnesium 250 mg tablet RxNorm: 1 Tablet(s) PO daily No Start Date Active Vitamin D3 2,000 uni t tablet RxNorm: 378261 2 Tablet(s) PO daily No Start Date Active Fosamax 35 mg tablet RxNorm: 509388 1 Tablet(s) PO QW No Start Date Active levothyroxine 125 mc g tablet RxNorm: 328071 1 Tablet(s) PO daily No Start Date 12/31/2014 Inactive levothyroxine 150 mc g tablet RxNorm: 858871 1 Tablet(s) PO daily No Start Date 12/31/2014 Inactive diltiazem 60 mg tablet RxNorm: 799722 1 Tablet(s) PO QID No Start Date 03/23/2018 Inactive meclizine 25 mg tablet RxNorm: 045583 1 Tablet(s) PO TID as needed Dizziness No Start Date 07/18/2018 Inactive furosemide 40 mg tablet RxNorm: 168852 1 Tablet(s) PO daily No Start Date 04/04/2015 Inactive potassium chloride RxNorm: miscellaneous No Start Date 11/19/2015 Inactive Vitamin D2 oral RxNorm: 4018 oral No Start Date 05/31/2015 Inactive warfarin 5 mg tablet RxNorm: 022531 1 Tablet(s) PO daily No Start Date 01/10/2015 Inactive Coumadin 4 mg tablet RxNorm: 869757 1 Tablet(s) PO Wed/ No Start Date 07/28/2017 Inactive Medication Administered Medication Codes Instruc tions Start Date Status Kenalog 40 mg/mL suspension for injection RxNorm: 4548467 Milliliter 07/22/2016 No longer Active ceftriaxone 500 mg solution for injection RxNorm: 5481310 07/22/2016 No longer A ctive Kenalog 40 mg/mL suspension for injection RxNorm: 4935934 Milliliter 02/05/2015 No longer Active Immunizations Vaccine [...] initial encounter ICD-10: S61.218A ICD-9: 883.0 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 ICD-9: [...] 244.9 11/20/2014 ACTINIC KERATOSIS ICD-9: 702.0 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 ICD-9: V58.61 [...] Code Item Item Code Result Date Pt Wkg0835 PT 29.5 seconds 08/01/2018 Pt Zkh3913 INR 2.8 08/01/2018 Pt Cvt9726 Low Intensity - 1.5-2.0 08/01/2018 Pt Jvk5638 Mod intensity - 2.0-3.0 08/01/2018 Pt Bno0639 Hi intensity - 3.0-4.0 08/01/2018 Pt Rcl7656 PT 24.2 seconds 07/25/2018 Pt Pjt5902 INR 2.2 07/25/2018 Pt Oby2105 Low Intensity - 1.5-2.0 07/25/2018 Pt Mow2922 Mod intensity - 2.0-3.0 07/25/2018 Pt Erd9584 Hi intensity - 3.0-4.0 07/25/2018 Pt Bot2109 PT 38.6 seconds 07/19/2018 Pt Zhe2790 INR 4.0 07/19/2018 Pt Kex4484 Low Intensity - 1.5-2.0 07/19/2018 Pt Gbh8644 Mod intensity - 2.0-3.0 07/19/2018 Pt Upy6748 Hi intensity - 3.0-4.0 07/19/2018 Pt Yyz7582 PT 25.7 seconds 07/11/2018 Pt Yaj8306 INR 2.4 07/11/2018 Pt Xev4273 Low Intensity - 1.5-2.0 07/11/2018 Pt Alh7541 Mod intensity - 2.0-3.0 07/11/2018 Pt Npd3594 Hi intensity - 3.0-4.0 07/11/2018 Pt Wcl7484 PT 18.5 seconds 07/08/2018 Pt Nnp2508 INR 1.6 07/08/2018 Pt Osw9910 Low Intensity - 1.5-2.0 07/08/2018 Pt Tsn6913 Mod intensity - 2.0-3.0 07/08/2018 Pt Ylt7591 Hi intensity - 3.0-4.0 07/08/2018 Pt Ahx1744 PT 27.3 seconds 06/29/2018 Pt Mfe3994 INR 2.6 06/29/2018 Pt Kew5044 Low Intensity - 1.5-2.0 06/29/2018 Pt Lxi2664 Mod intensity - 2.0-3.0 06/29/2018 Pt Rje9523 Hi intensity - 3.0-4.0 06/29/2018 Pt Rks1972 PT 24.0 seconds 05/26/2018 Pt Ldd9300 INR 2.2 05/26/2018 Pt Zen7111 Low Intensity - 1.5-2.0 05/26/2018 Pt Pmi0609 Mod intensity - 2.0-3.0 05/26/2018 Pt Vrk2323 Hi intensity - 3.0-4.0 05/26/2018 Tsh Ord6 [...] 29.6 pg 03/25/2018 Cbc With Differential Ord2 Dent% 9.5 % 03/25/2018 Cbc With Differential Ord2 [...] 2.19 K/ul 03/25/2018 Cbc With Differential Ord2 Dent ABS# 0.8 K/ul 03/25/2018 Cbc With Differential Ord2 Eos ABS# 0.3 K/ul 03/25/2018 Cbc With Differential Ord2 Baso ABS# 0.0 K/ul 03/25/2018 Lipid Ord30 CHOL 156 mg/dL 03/25/2018 Lipid Ord30 HDL 52.0 mg/dl 03/25/2018 Lipid Ord30 TRIG 98 mg/dL 03/25/2018 Lipid Ord30 LDL 84 mg/dL 03/25/2018 Lipid Ord30 C/HDL 3.0 Ratio 03/25/2018 Free T4 Jjj551 FREE T4 1.73 ng/dL 03/25/2018 Comp Metabolic Vle144 NA 143 mEq/L 03/25/2018 Comp Metabolic Suh406 K 4.6 mEq/L 03/25/2018 Comp Metabolic Oih509 CL 108 mEq/L 03/25/2018 Comp Metabolic Vet485 CO2 26.0 mEq/L 03/25/2018 Comp Metabolic Zwj908 AN ION GAP 14 03/25/2018 Comp Metabolic Dye958 GL UCOSE 87 mg/dL 03/25/2018 Comp Metabolic Dhq611 Cr eat 1.2 mg/dL 03/25/2018 Comp Metabolic Jcy361 eG FR 48 ml/min/1.73m2 03/25 Comp Metabolic Iws503 BUN 18 mg/dL 03/25/2018 Comp Metabolic Uvf069 B/ C Ratio 15.5 Ratio 03/25/2018 Comp Metabolic Wdf495 CA LCIUM 9.1 mg/dL 03/25/2018 Comp Metabolic Tfw520 AL K PHOS 58 U/L 03/25/2018 Comp Metabolic Nlg358 T(SGOT) 21 U/L 03/25/2018 Comp Metabolic Ckk796 AL T(SGPT) 13 U/L 03/25/2018 Comp Metabolic Tua967 BI LI T 0.7 mg/dL 03/25/2018 Comp Metabolic Ymb957 AL BUMIN 3.2 g/dL 03/25/2018 Comp Metabolic Xle889 TP RO 5.5 g/dL 03/25/2018 Comp Metabolic Oma905 GL OB 2.3 g/dL 03/25/2018 Comp Metabolic Ceh091 A/ G Ratio 1.4 Ratio 03/25/2018 Comp Metabolic Vfo925 Os mo 286 mOsmo 03/25/2018 Pt Drn8394 PT 29.0 seconds 03/22/2018 Pt Joz7595 INR 2.7 03/22/2018 Pt Lfj3161 Low Intensity - 1.5-2.0 03/22/2018 Pt Xey9631 Mod intensity - 2.0-3.0 03/22/2018 Pt Jqn5963 Hi intensity - 3.0-4.0 03/22/2018 Pt Gbe8030 PT 27.1 seconds 02/25/2018 Pt Mfs9353 INR 2.5 02/25/2018 Pt Xrl7601 Low Intensity - 1.5-2.0 02/25/2018 Pt Cyl5539 Mod intensity - 2.0-3.0 02/25/2018 Pt Uop6398 Hi intensity - 3.0-4.0 02/25/2018 Pt Lfv8090 PT 26.1 seconds 01/26/2018 Pt Brk4172 INR 2.4 01/26/2018 Pt Olb8065 Low Intensity - 1.5-2.0 01/26/2018 Pt Bdw3683 Mod intensity - 2.0-3.0 01/26/2018 Pt Uis0451 Hi intensity - 3.0-4.0 01/26/2018 Pt Bvc5308 PT 22.8 seconds 12/24/2017 Pt Vmj5601 INR 2.0 12/24/2017 Pt Pst3369 Low Intensity - 1.5-2.0 12/24/2017 Pt Zhs1034 Mod intensity - 2.0-3.0 12/24/2017 Pt Skx7091 Hi intensity - 3.0-4.0 12/24/2017 Pt Pca3174 PT 29.4 seconds 11/18/2017 Pt Ngt3978 INR 2.8 11/18/2017 Pt Hrt2478 Low Intensity - 1.5-2.0 11/18/2017 Pt Fmz3272 Mod intensity - 2.0-3.0 11/18/2017 Pt Udq8523 Hi intensity - 3.0-4.0 11/18/2017 Pt Uip5863 PT 26.6 seconds 09/13/2017 Pt Vlg7226 INR 2.4 09/13/2017 Pt Lho1896 Low Intensity - 1.5-2.0 09/13/2017 Pt Zvk3136 Mod intensity - 2.0-3.0 09/13/2017 Pt Dyd8268 Hi intensity - 3.0-4.0 09/13/2017 Pt Azy9134 PT 28.2 seconds 08/10/2017 Pt Kuh3946 INR 2.6 08/10/2017 Pt Xcn8695 Low Intensity - 1.5-2.0 08/10/2017 Pt Bya8461 Mod intensity - 2.0-3.0 08/10/2017 Pt Pwe1596 Hi intensity - 3.0-4.0 08/10/2017 Pt Pwn9284 PT 33.9 seconds 07/27/2017 Pt Qxt3912 INR 3.3 07/27/2017 Pt Lyu0345 Low Intensity - 1.5-2.0 07/27/2017 Pt Zjs5196 Mod intensity - 2.0-3.0 07/27/2017 Pt Acf1557 Hi intensity - 3.0-4.0 07/27/2017 Pt Qaq1866 PT 29.1 seconds 06/29/2017 Pt Cxs4511 INR 2.7 06/29/2017 Pt Jbl4688 Low Intensity - 1.5-2.0 06/29/2017 Pt Cgs0883 Mod intensity - 2.0-3.0 06/29/2017 Pt Dxm3284 Hi intensity - 3.0-4.0 06/29/2017 Pt Sgf6304 PT 30.3 seconds 06/11/2017 Pt Lzp3926 INR 2.9 06/11/2017 Pt Fij4619 Low Intensity - 1.5-2.0 06/11/2017 Pt Aoo8519 Mod intensity - 2.0-3.0 06/11/2017 Pt Lkx5186 Hi intensity - 3.0-4.0 06/11/2017 Pt Bde1267 PT 39.1 seconds 06/07/2017 Pt Ogv4045 INR 3.9 06/07/2017 Pt Kwe7723 Low Intensity - 1.5-2.0 06/07/2017 Pt Gvx7496 Mod intensity - 2.0-3.0 06/07/2017 Pt Wer8053 Hi intensity - 3.0-4.0 06/07/2017 Pt Ole6159 PT 34.2 seconds 05/26/2017 Pt Gag2715 INR 3.3 05/26/2017 Pt Zqp1786 Low Intensity - 1.5-2.0 05/26/2017 Pt Gfs7999 Mod intensity - 2.0-3.0 05/26/2017 Pt Bzb9457 Hi intensity - 3.0-4.0 05/26/2017 Comp Metabolic Mib593 NA 138 mEq/L 04/23/2017 Comp Metabolic Kyx996 K 4.2 mEq/L 04/23/2017 Comp Metabolic Uhb916 CL 101 mEq/L 04/23/2017 Comp Metabolic Bwx418 CO2 28.0 mEq/L 04/23/2017 Comp Metabolic Qfp612 AN ION GAP 13 04/23/2017 Comp Metabolic Kej453 GL UCOSE 89 mg/dL 04/23/2017 Comp Metabolic Yhi032 Cr eat 1.1 mg/dL 04/23/2017 Comp Metabolic Xyc460 eG FR 51 ml/min/1.73m2 04/23 Comp Metabolic Bwa378 BUN 26 mg/dL 04/23/2017 Comp Metabolic Kyv883 B/ C Ratio 23.9 Ratio 04/23/2017 Comp Metabolic Mre580 CA LCIUM 9.4 mg/dL 04/23/2017 Comp Metabolic Msn780 AL K PHOS 95 U/L 04/23/2017 Comp Metabolic Hgi719 T(SGOT) 18 U/L 04/23/2017 Comp Metabolic Gax375 AL T(SGPT) 17 U/L 04/23/2017 Comp Metabolic Blj257 BI LI T 0.7 mg/dL 04/23/2017 Comp Metabolic Xqr583 AL BUMIN 3.2 g/dL 04/23/2017 Comp Metabolic Mck884 TP RO 5.6 g/dL 04/23/2017 Comp Metabolic Ttl065 GL OB 2.4 g/dL 04/23/2017 Comp Metabolic Tmm121 A/ G Ratio 1.3 Ratio 04/23/2017 Comp Metabolic Cqu574 Os mo 280 mOsmo 04/23/2017 Pt Gjx1669 PT 28.6 seconds 04/23/2017 Pt Cth1876 INR 2.7 04/23/2017 Pt Emx6751 Low Intensity - 1.5-2.0 04/23/2017 Pt Mem9321 Mod intensity - 2.0-3.0 04/23/2017 Pt Rye0226 Hi intensity - 3.0-4.0 04/23/2017 Pt Adm5722 PT 24.4 seconds 03/16/2017 Pt Dad6661 INR 2.2 03/16/2017 Pt Qhm1571 Low Intensity - 1.5-2.0 03/16/2017 Pt Mal8219 Mod intensity - 2.0-3.0 03/16/2017 Pt Luf7207 Hi intensity - 3.0-4.0 03/16/2017 Pt Ate8137 PT 28.2 seconds 02/24/2017 Pt Rna0553 INR 2.6 02/24/2017 Pt Wpx7079 Low Intensity - 1.5-2.0 02/24/2017 Pt Qna1887 Mod intensity - 2.0-3.0 02/24/2017 Pt Ikw6743 Hi intensity - 3.0-4.0 02/24/2017 Pt Bzl8308 PT 26.8 seconds 02/08/2017 Pt Qlq7775 INR 2.5 02/08/2017 Pt Fxw0122 Low Intensity - 1.5-2.0 02/08/2017 Pt Ron4444 Mod intensity - 2.0-3.0 02/08/2017 Pt Epc6863 Hi intensity - 3.0-4.0 02/08/2017 Lipid Ord30 CHOL 150 mg/dL 01/25/2017 Lipid Ord30 HDL 55.0 mg/dl 01/25/2017 Lipid Ord30 TRIG 66 mg/dL 01/25/2017 Lipid Ord30 LDL 82 mg/dL 01/25/2017 Lipid Ord30 C/HDL 2.7 Ratio 01/25/2017 Pt Scf0991 PT 29.9 seconds 01/25/2017 Pt Frp4707 INR 2.8 01/25/2017 Pt Kzx7787 Low Intensity - 1.5-2.0 01/25/2017 Pt Ldr3691 Mod intensity - 2.0-3.0 01/25/2017 Pt Ses9787 Hi intensity - 3.0-4.0 01/25/2017 Comp Metabolic Qpm599 NA 143 mEq/L 01/25/2017 Comp Metabolic Lmr415 K 3.9 mEq/L 01/25/2017 Comp Metabolic Hrt131 CL 108 mEq/L 01/25/2017 Comp Metabolic Wzw771 CO2 23.0 mEq/L 01/25/2017 Comp Metabolic Nbn103 AN ION GAP 16 01/25/2017 Comp Metabolic Osf747 GL UCOSE 80 mg/dL 01/25/2017 Comp Metabolic Ola185 Cr eat 1.0 mg/dL 01/25/2017 Comp Metabolic Esy406 eG FR 57 ml/min/1.73m2 01/25 Comp Metabolic Sgm563 BUN 25 mg/dL 01/25/2017 Comp Metabolic Rqj119 B/ C Ratio 25.0 Ratio 01/25/2017 Comp Metabolic Tgk222 CA LCIUM 8.5 mg/dL 01/25/2017 Comp Metabolic Zcm085 AL K PHOS 81 U/L 01/25/2017 Comp Metabolic Mzr832 T(SGOT) 19 U/L 01/25/2017 Comp Metabolic Fba315 AL T(SGPT) 23 U/L 01/25/2017 Comp Metabolic Krt410 BI LI T 0.5 mg/dL 01/25/2017 Comp Metabolic Xcv734 AL BUMIN 2.9 g/dL 01/25/2017 Comp Metabolic Tfm916 TP RO 5.1 g/dL 01/25/2017 Comp Metabolic Vkg161 GL OB 2.2 g/dL 01/25/2017 Comp Metabolic Zep666 A/ G Ratio 1.3 Ratio 01/25/2017 Comp Metabolic Afg713 Os mo 288 mOsmo 01/25/2017 Cbc With [...] 30.7 pg 01/25/2017 Cbc With Differential Ord2 Dent% 8.2 % 01/25/2017 Cbc With Differential Ord2 [...] 3.10 K/ul 01/25/2017 Cbc With Differential Ord2 Dent ABS# 0.8 K/ul 01/25/2017 Cbc With Differential Ord2 Eos ABS# 0.4 K/ul 01/25/2017 Cbc With Differential Ord2 Baso ABS# 0.1 K/ul 01/25/2017 Free T4 Wzu935 FREE T4 2.09 ng/dL 01/25/2017 Tsh Ord6 hTSH II 0.46 uIU/mL 01/25/2017 Pt Dkp1603 PT 26.1 seconds 11/26/2016 Pt Ewp8714 INR 2.6 11/26/2016 Pt Kli8756 Low Intensity - 1.5-2.0 11/26/2016 Pt Wkd4437 Mod intensity - 2.0-3.0 11/26/2016 Pt Vrh8656 Hi intensity - 3.0-4.0 11/26/2016 Pt Zcu9147 PT 26.2 seconds 10/29/2016 Pt Vyf1328 INR 2.6 10/29/2016 Pt Uwx2314 Low Intensity - 1.5-2.0 10/29/2016 Pt Trm0003 Mod intensity - 2.0-3.0 10/29/2016 Pt Rlv5788 Hi intensity - 3.0-4.0 10/29/2016 Pt Qjp6708 PT 20.8 seconds 10/13/2016 Pt Uvk0326 INR 1.9 10/13/2016 Pt Xdq1457 Low Intensity - 1.5-2.0 10/13/2016 Pt Beg4169 Mod intensity - 2.0-3.0 10/13/2016 Pt Whg8750 Hi intensity - 3.0-4.0 10/13/2016 Pt Wjv7789 PT 26.5 seconds 10/01/2016 Pt Ccg1159 INR 2.6 10/01/2016 Pt Pya4464 Low Intensity - 1.5-2.0 10/01/2016 Pt Xjp0660 Mod intensity - 2.0-3.0 10/01/2016 Pt Jik0201 Hi intensity - 3.0-4.0 10/01/2016 Pt Nbl2655 PT 24.6 seconds 09/14/2016 Pt Rtn4374 INR 2.4 09/14/2016 Pt Mww9592 Low Intensity - 1.5-2.0 09/14/2016 Pt Rui8500 Mod intensity - 2.0-3.0 09/14/2016 Pt Min3487 Hi intensity - 3.0-4.0 09/14/2016 Pt Iqb9151 PT 18.0 seconds 09/07/2016 Pt Zaw3484 INR 1.6 09/07/2016 Pt Gyn6258 Low Intensity - 1.5-2.0 09/07/2016 Pt Tuw0144 Mod intensity - 2.0-3.0 09/07/2016 Pt Aik7823 Hi intensity - 3.0-4.0 09/07/2016 Pt Yya9469 PT 23.7 seconds 08/12/2016 Pt Emy1306 INR 2.2 08/12/2016 Pt Ujm9175 Low Intensity - 1.5-2.0 08/12/2016 Pt Mba0722 Mod intensity - 2.0-3.0 08/12/2016 Pt Rgs7936 Hi intensity - 3.0-4.0 08/12/2016 Pt Dmy3978 PT 21.6 seconds 07/27/2016 Pt Gps9937 INR 2.0 07/27/2016 Pt Rnf4673 Low Intensity - 1.5-2.0 07/27/2016 Pt Smk9493 Mod intensity - 2.0-3.0 07/27/2016 Pt Mti0618 Hi intensity - 3.0-4.0 07/27/2016 Pt Kwt8473 PT 26.0 seconds 06/15/2016 Pt Ydi9415 INR 2.5 06/15/2016 Pt Rfd4236 Low Intensity - 1.5-2.0 06/15/2016 Pt Urn3243 Mod intensity - 2.0-3.0 06/15/2016 Pt She9004 Hi intensity - 3.0-4.0 06/15/2016 Pt Svx2768 PT 18.8 seconds 06/01/2016 Pt Awr9976 INR 1.7 06/01/2016 Pt Des0825 Low Intensity - 1.5-2.0 06/01/2016 Pt Ckn8460 Mod intensity - 2.0-3.0 06/01/2016 Pt Oat6355 Hi intensity - 3.0-4.0 06/01/2016 Pt Oxw2553 PT 20.8 seconds 05/12/2016 Pt Jom8881 INR 1.9 05/12/2016 Pt Use0191 Low Intensity - 1.5-2.0 05/12/2016 Pt Eow4269 Mod intensity - 2.0-3.0 05/12/2016 Pt Mky4486 Hi intensity - 3.0-4.0 05/12/2016 Pt Sno7321 PT 24.5 seconds 04/10/2016 Pt Kyp6038 INR 2.4 04/10/2016 Pt Clz4294 Low Intensity - 1.5-2.0 04/10/2016 Pt Tsb3405 Mod intensity - 2.0-3.0 04/10/2016 Pt Ulu4040 Hi intensity - 3.0-4.0 04/10/2016 Pt Asj0581 PT 26.4 seconds 03/10/2016 Pt Fju4407 INR 2.6 03/10/2016 Pt Jyz4058 Low Intensity - 1.5-2.0 03/10/2016 Pt Ayw6617 Mod intensity - 2.0-3.0 03/10/2016 Pt Zgz4180 Hi intensity - 3.0-4.0 03/10/2016 Pt Vio9144 PT 24.9 seconds 03/06/2016 Pt Iak2767 INR 2.4 03/06/2016 Pt Ymw5498 Low Intensity - 1.5-2.0 03/06/2016 Pt Odd8044 Mod intensity - 2.0-3.0 03/06/2016 Pt Szu5897 Hi intensity - 3.0-4.0 03/06/2016 Pt Cmj9306 PT 21.9 seconds 02/25/2016 Pt Gay2111 INR 2.0 02/25/2016 Pt Pky8123 Low Intensity - 1.5-2.0 02/25/2016 Pt Aqp9684 Mod intensity - 2.0-3.0 02/25/2016 Pt Gln0738 Hi intensity - 3.0-4.0 02/25/2016 Pt Xaf9784 PT 21.8 seconds 02/21/2016 Pt Gjd0964 INR 2.0 02/21/2016 Pt Qen2298 Low Intensity - 1.5-2.0 02/21/2016 Pt Bqx2374 Mod intensity - 2.0-3.0 02/21/2016 Pt Kkc0589 Hi intensity - 3.0-4.0 02/21/2016 Culture Urine [id number] URI NE CULTURE SEE NOTES 02/20/2016 Culture Urine [id number] Con tinued Results 02/20/2016 Urine Culture Ucult [...] 91.8 fl 02/14/2016 Cbc With Differential Ord2 Dent% 9.3 % 02/14/2016 Cbc With Differential Ord2 [...] 2.55 K/ul 02/14/2016 Cbc With Differential Ord2 Dent ABS# 0.8 K/ul 02/14/2016 Cbc With Differential Ord2 Eos ABS# 0.4 K/ul 02/14/2016 Cbc With Differential Ord2 Baso ABS# 0.1 K/ul 02/14/2016 Tsh Ord6 hTSH II 0.80 uIU/mL 02/14/2016 Pt Tfz7660 PT 27.1 seconds 02/14/2016 Pt Xur2713 INR 2.7 02/14/2016 Pt Rdi7185 Low Intensity - 1.5-2.0 02/14/2016 Pt Gra3780 Mod intensity - 2.0-3.0 02/14/2016 Pt Qco9662 Hi intensity - 3.0-4.0 02/14/2016 Free T4 Ewq392 FREE T4 1.87 ng/dL 02/14/2016 Comp Metabolic Wiy170 NA 139 mEq/L 02/14/2016 Comp Metabolic Rur091 K 3.8 mEq/L 02/14/2016 Comp Metabolic Akg940 CL 103 mEq/L 02/14/2016 Comp Metabolic Spv338 CO2 27.0 mEq/L 02/14/2016 Comp Metabolic Yvz620 AN ION GAP 13 02/14/2016 Comp Metabolic Xst615 GL UCOSE 91 mg/dL 02/14/2016 Comp Metabolic Xqn128 Cr eat 1.0 mg/dL 02/14/2016 Comp Metabolic Dye634 eG FR 58 ml/min/1.73m2 02/13 Comp Metabolic Rzo391 BUN 16 mg/dL 02/14/2016 Comp Metabolic Ncn274 B/ C Ratio 16.2 Ratio 02/14/2016 Comp Metabolic Evp922 CA LCIUM 9.0 mg/dL 02/14/2016 Comp Metabolic Ntl876 AL K PHOS 88 U/L 02/14/2016 Comp Metabolic Krr611 T(SGOT) 17 U/L 02/14/2016 Comp Metabolic Xyl179 AL T(SGPT) 12 U/L 02/14/2016 Comp Metabolic Vta420 BI LI T 0.6 mg/dL 02/14/2016 Comp Metabolic Xuy733 AL BUMIN 3.2 g/dL 02/14/2016 Comp Metabolic Smd792 TP RO 5.8 g/dL 02/14/2016 Comp Metabolic Olm921 GL OB 2.6 g/dL 02/14/2016 Comp Metabolic Ygv143 A/ G Ratio 1.3 Ratio 02/14/2016 Comp Metabolic Ghk145 Os mo 278 mOsmo 02/14/2016 Pt Xkv9007 PT 34.6 seconds 02/06/2016 Pt Nsn1563 INR 3.7 02/06/2016 Pt Apa4084 Low Intensity - 1.5-2.0 02/06/2016 Pt Ohl0750 Mod intensity - 2.0-3.0 02/06/2016 Pt Vmk5776 Hi intensity - 3.0-4.0 02/06/2016 Pt Gon4875 PT 33.3 seconds 01/23/2016 Pt Alx8094 INR 3.5 01/23/2016 Pt Urr0380 Low Intensity - 1.5-2.0 01/23/2016 Pt Mqm1190 Mod intensity - 2.0-3.0 01/23/2016 Pt Tqz1997 Hi intensity - 3.0-4.0 01/23/2016 Pt Qvt7787 PT 30.5 seconds 12/31/2015 Pt Rmj3385 INR 3.2 12/31/2015 Pt Ukk3082 Low Intensity - 1.5-2.0 12/31/2015 Pt Oqz8208 Mod intensity - 2.0-3.0 12/31/2015 Pt Bhq8672 Hi intensity - 3.0-4.0 12/31/2015 Pt Qtd3557 PT 35.6 seconds 12/25/2015 Pt Afs7949 INR 3.9 12/25/2015 Pt Zxw2100 Low Intensity - 1.5-2.0 12/25/2015 Pt Gib3444 Mod intensity - 2.0-3.0 12/25/2015 Pt Tke4963 Hi intensity - 3.0-4.0 12/25/2015 Pt Bme2069 PT 30.8 seconds 11/21/2015 Pt Nez0634 INR 3.2 11/21/2015 Pt Egt0247 Low Intensity - 1.5-2.0 11/21/2015 Pt Fnj2467 Mod intensity - 2.0-3.0 11/21/2015 Pt Guu3330 Hi intensity - 3.0-4.0 11/21/2015 Uric Acid [...] 30.0 pg 11/20/2015 Cbc With Differential Ord2 Dent% 8.1 % 11/20/2015 Cbc With Differential Ord2 [...] 2.51 K/ul 11/20/2015 Cbc With Differential Ord2 Dent ABS# 0.9 K/ul 11/20/2015 Cbc With Differential Ord2 Eos ABS# 0.3 K/ul 11/20/2015 Cbc With Differential Ord2 Baso ABS# 0.0 K/ul 11/20/2015 Comp Metabolic Eyq753 NA 137 mEq/L 10/22/2015 Comp Metabolic Rup074 K 3.9 mEq/L 10/22/2015 Comp Metabolic Zuc828 CL 100 mEq/L 10/22/2015 Comp Metabolic Cix683 CO2 31.0 mEq/L 10/22/2015 Comp Metabolic Snw629 AN ION GAP 10 10/22/2015 Comp Metabolic Rqd270 GL UCOSE 94 mg/dL 10/22/2015 Comp Metabolic Ugd358 Cr eat 1.0 mg/dL 10/22/2015 Comp Metabolic Wav954 eG FR 55 ml/min/1.73m2 10/21 Comp Metabolic Soi460 BUN 19 mg/dL 10/22/2015 Comp Metabolic Udi511 B/ C Ratio 18.3 Ratio 10/22/2015 Comp Metabolic Oez079 CA LCIUM 8.8 mg/dL 10/22/2015 Comp Metabolic Ihf499 AL K PHOS 83 U/L 10/22/2015 Comp Metabolic Ojj148 T(SGOT) 15 U/L 10/22/2015 Comp Metabolic Ome390 AL T(SGPT) 13 U/L 10/22/2015 Comp Metabolic Sji728 BI LI T 0.9 mg/dL 10/22/2015 Comp Metabolic Pgq310 AL BUMIN 2.8 g/dL 10/22/2015 Comp Metabolic Dkp051 TP RO 5.4 g/dL 10/22/2015 Comp Metabolic Zac074 GL OB 2.6 g/dL 10/22/2015 Comp Metabolic Vjp522 A/ G Ratio 1.1 Ratio 10/22/2015 Comp Metabolic Qcn875 Os mo 276 mOsmo 10/22/2015 Bili D Ord93 BILI D 0.1 mg/dL 10/22/2015 Bili D Ord93 BILI I 0.8 mg/dL 10/22/2015 Pt Twn2771 PT 22.8 seconds 10/22/2015 Pt Are0083 INR 2.1 10/22/2015 Pt Oav3172 Low Intensity - 1.5-2.0 10/22/2015 Pt Fko5959 Mod intensity - 2.0-3.0 10/22/2015 Pt Zej2233 Hi intensity - 3.0-4.0 10/22/2015 Pt Mbj3796 PT 28.0 seconds 09/16/2015 Pt Wug9055 INR 2.7 09/16/2015 Pt Hyf2054 Low Intensity - 1.5-2.0 09/16/2015 Pt Mfz6262 Mod intensity - 2.0-3.0 09/16/2015 Pt Byr1084 Hi intensity - 3.0-4.0 09/16/2015 Tsh Ord6 hTSH II 1.40 uIU/mL 09/16/2015 Free T4 Dzf014 FREE T4 1.73 ng/dL 09/16/2015 Lipid Ord30 CHOL 169 mg/dL 09/16/2015 Lipid Ord30 HDL 66.0 mg/dl 09/16/2015 Lipid Ord30 TRIG 78 mg/dL 09/16/2015 Lipid Ord30 LDL 87 mg/dL 09/16/2015 Lipid Ord30 C/HDL 2.6 Ratio 09/16/2015 Pt Ylk9411 PT 26.6 seconds 08/21/2015 Pt Mvf9999 INR 2.6 08/21/2015 Pt Mzy1884 Low Intensity - 1.5-2.0 08/21/2015 Pt Bnb2886 Mod intensity - 2.0-3.0 08/21/2015 Pt Mwx7523 Hi intensity - 3.0-4.0 08/21/2015 Comp Metabolic Gea577 NA 141 mEq/L 08/08/2015 Comp Metabolic Dle702 K 3.3 mEq/L 08/08/2015 Comp Metabolic Isg768 CL 102 mEq/L 08/08/2015 Comp Metabolic Auc995 CO2 31.0 mEq/L 08/08/2015 Comp Metabolic Qxt297 AN ION GAP 11 08/08/2015 Comp Metabolic Mvj820 GL UCOSE 83 mg/dL 08/08/2015 Comp Metabolic Mdb372 Cr eat 1.0 mg/dL 08/08/2015 Comp Metabolic Vea975 eG FR 55 ml/min/1.73m2 08/08 Comp Metabolic Bgu666 BUN 19 mg/dL 08/08/2015 Comp Metabolic Dsw842 B/ C Ratio 18.3 Ratio 08/08/2015 Comp Metabolic Lfw626 CA LCIUM 8.9 mg/dL 08/08/2015 Comp Metabolic Xim211 AL K PHOS 84 U/L 08/08/2015 Comp Metabolic Asu024 T(SGOT) 20 U/L 08/08/2015 Comp Metabolic Skh071 AL T(SGPT) 18 U/L 08/08/2015 Comp Metabolic Lvo775 BI LI T 0.6 mg/dL 08/08/2015 Comp Metabolic Qws827 AL BUMIN 3.3 g/dL 08/08/2015 Comp Metabolic Gto211 TP RO 5.9 g/dL 08/08/2015 Comp Metabolic Bes658 GL OB 2.6 g/dL 08/08/2015 Comp Metabolic Ogy362 A/ G Ratio 1.3 Ratio 08/08/2015 Comp Metabolic Usm868 Os mo 283 mOsmo 08/08/2015 Cbc With [...] 30.0 pg 08/08/2015 Cbc With Differential Ord2 Dent% 8.2 % 08/08/2015 Cbc With Differential Ord2 [...] 2.90 K/ul 08/08/2015 Cbc With Differential Ord2 Dent ABS# 0.9 K/ul 08/08/2015 Cbc With Differential [...] Ord93 BILI I 0.5 mg/dL 08/08/2015 Pt Nyj8784 PT 31.8 seconds 08/05/2015 Pt Huc2072 INR 3.2 08/05/2015 Pt Zzy7065 Low Intensity - 1.5-2.0 08/05/2015 Pt Iqy2534 Mod intensity - 2.0-3.0 08/05/2015 Pt Pmn2461 Hi intensity - 3.0-4.0 08/05/2015 Pt Kls1162 PT 27.4 seconds 06/27/2015 Pt Pso7895 INR 2.6 06/27/2015 Pt Xxz2841 Low Intensity - 1.5-2.0 06/27/2015 Pt Fun3430 Mod intensity - 2.0-3.0 06/27/2015 Pt Wzw2369 Hi intensity - 3.0-4.0 06/27/2015 Tsh Ord6 [...] Ord2 RDW 15.1 % 05/31/2015 Free T4 Gqw007 FREE T4 1.89 ng/dL 05/31/2015 Comp Metabolic Jke570 NA 140 mEq/L 05/31/2015 Comp Metabolic Fii212 K 3.3 mEq/L 05/31/2015 Comp Metabolic Use791 CL 99 mEq/L 05/31/2015 Comp Metabolic Unz772 CO2 30.0 mEq/L 05/31/2015 Comp Metabolic Mtl742 AN ION GAP 14 05/31/2015 Comp Metabolic Hne742 GL UCOSE 70 mg/dL 05/31/2015 Comp Metabolic Igc353 Cr eat 1.0 mg/dL 05/31/2015 Comp Metabolic Zts053 eG FR 55 ml/min/1.73m2 05/31 Comp Metabolic Oca615 BUN 23 mg/dL 05/31/2015 Comp Metabolic Vkp509 B/ C Ratio 22.1 Ratio 05/31/2015 Comp Metabolic Rjv758 CA LCIUM 8.9 mg/dL 05/31/2015 Comp Metabolic Ijz576 AL K PHOS 86 U/L 05/31/2015 Comp Metabolic Pho855 T(SGOT) 28 U/L 05/31/2015 Comp Metabolic Uqe803 AL T(SGPT) 30 U/L 05/31/2015 Comp Metabolic Hfx887 BI LI T 0.4 mg/dL 05/31/2015 Comp Metabolic Lku254 AL BUMIN 3.3 g/dL 05/31/2015 Comp Metabolic Cie447 TP RO 6.0 g/dL 05/31/2015 Comp Metabolic Rsj339 GL OB 2.7 g/dL 05/31/2015 Comp Metabolic Zop640 A/ G Ratio 1.2 Ratio 05/31/2015 Comp Metabolic Vve490 Os mo 282 mOsmo 05/31/2015 Pt Fhs1440 PT 23.3 seconds 04/15/2015 Pt Nsq5114 INR 2.2 04/15/2015 Pt Cfu9314 Low Intensity - 1.5-2.0 04/15/2015 Pt Lma7959 Mod intensity - 2.0-3.0 04/15/2015 Pt Ovf8320 Hi intensity - 3.0-4.0 04/15/2015 Pt Fsn6446 PT 19.5 seconds 04/04/2015 Pt Tye6984 INR 1.7 04/04/2015 Pt Kop9031 Low Intensity - 1.5-2.0 04/04/2015 Pt Jfs0592 Mod intensity - 2.0-3.0 04/04/2015 Pt Uob6286 Hi intensity - 3.0-4.0 04/04/2015 Pt Dvn3154 PT 39.8 seconds 04/01/2015 Pt Qcs9238 INR 4.3 04/01/2015 Pt Vbw6276 Low Intensity - 1.5-2.0 04/01/2015 Pt Dfu1310 Mod intensity - 2.0-3.0 04/01/2015 Pt Pjv2567 Hi intensity - 3.0-4.0 04/01/2015 Metabolic Ord15 [...] Metabolic Ord15 CALCIUM 8.7 mg/dL 02/28/2015 Pt Wla7846 PT 31.4 seconds 02/28/2015 Pt Gip5834 INR 3.2 02/28/2015 Pt Kxk2336 Low Intensity - 1.5-2.0 02/28/2015 Pt Fmk1812 Mod intensity - 2.0-3.0 02/28/2015 Pt Mdd6274 Hi intensity - 3.0-4.0 02/28/2015 Pt Rpy8628 PT 23.2 seconds 01/18/2015 Pt Dgz8525 INR 2.1 01/18/2015 Pt Trt0128 Low Intensity - 1.5-2.0 01/18/2015 Pt Uqx4095 Mod intensity - 2.0-3.0 01/18/2015 Pt Dlj1160 Hi intensity - 3.0-4.0 01/18/2015 Pt Tai1591 PT 18.2 seconds 01/10/2015 Pt Rtn6117 INR 1.6 01/10/2015 Pt Fcs4285 Low Intensity - 1.5-2.0 01/10/2015 Pt Gnm3789 Mod intensity - 2.0-3.0 01/10/2015 Pt Xji9167 Hi intensity - 3.0-4.0 01/10/2015 Review of [...] 03/24/2018 ADMIN PNEUMOCOCCAL V ACCINE SNOMED CT: 45058836 CPT-4: G0009 03/24/2018 FLU VACC PRSV FREE I NC ANTIG Formatting Model/CDA Sections, Assigned to/Dorothea Tan CPT-4: 33901Vziygoe 03/24/2018 Pneumococcal Polysac charide Vaccine, 23-Valent, Ad CPT-4: 45870 03/24/2018 TRIAMCINOLONE ACET I [place] NOS CPT-4: J3301 06/15/2017 THER/PROPH/DIAG INJ SC/IM CPT-4: 01430 06/15/2017 ADMIN PNEUMOCOCCAL V ACCINE SNOMED CT: 19726854 CPT-4: G0009 03/16/2017 ADMIN INFLUENZA VIRU S VAC CPT-4: G0008 03/16/2017 FLU VAC NO PRSV 4 VA L 3 YRS+ CPT-4: 20063 03/16/2017 PNEUMOCOCCAL VACC [address]: 90217410 CPT-4: 26721 03/16/2017 URINALYSIS NONAUTO W /O SCOPE CPT-4: 61095 08/26/2016 THER/PROPH/DIAG INJ SC/IM CPT-4: 07559 07/22/2016 TRIAMCINOLONE ACET I [place] NOS CPT-4: J3301 07/22/2016 ROCEPHIN, PER 250 MG CPT-4: J0696 07/22/2016 TRIAMCINOLONE ACET I [place] NOS CPT-4: J3301 02/05/2015 Vital Signs Date Vital 07/11/2018 Blood Pressure 1: 102/68 Code: 8480-6 BMI: 34.5 Code: 48499-1 Heart Rate 1: 101 bpm Height: 5'7" SpO2: 98% Weight: 220 lbs 03/24/2018 Blood Pressure 1: 130/72 Code: 8480-6 BMI: 33.4 Code: 72802-8 Heart Rate 1: 82 bpm Height: 5'7" SpO2: 93% Weight: 213 lbs 11/18/2017 Blood Pressure 1: 128/70 Code: 8480-6 BMI: 33.6 Code: 12325-6 Heart Rate 1: 98 bpm Height: 5'7" SpO2: 97% Weight: 214 lbs 8 oz 09/30/2017 Blood Pressure 1: 100/50 Code: 8480-6 BMI: 34.0 Code: 36729-2 Heart Rate 1: 66 bpm Height: 5'7" SpO2: 96% Weight: 217 lbs 08/17/2017 Blood Pressure 1: 104/60 Code: 8480-6 BMI: 33.7 Code: 91376-0 Heart Rate 1: 99 bpm Height: 5'7" SpO2: 97% Weight: 215 lbs 06/15/2017 Blood Pressure 1: 120/64 Code: 8480-6 BMI: 33.5 Code: 70102-2 Heart Rate 1: 91 bpm Height: 5'7" SpO2: 94% Weight: 214 lbs 04/01/2017 Blood Pressure 1: 110/68 Code: 8480-6 BMI: 154.4 Code: 79378-4 Heart Rate 1: 66 bpm Height: 2'7" SpO2: 95% Weight: 211 lbs 03/16/2017 Blood Pressure 1: 130/72 Code: 8480-6 BMI: 33.0 Code: 00082-9 Heart Rate 1: 95 bpm Height: 5'7" SpO2: 97% Weight: 211 lbs 02/09/2017 Blood Pressure 1: 120/70 Code: 8480-6 BMI: 32.9 Code: 51070-1 Heart Rate 1: 78 bpm Height: 5'7" SpO2: 96% Weight: 210 lbs 10/13/2016 Blood Pressure 1: 118/76 Code: 8480-6 BMI: 32.6 Code: 88748-5 Heart Rate 1: 97 bpm Height: 5'7" SpO2: 98% Weight: 208 lbs 07/31/2016 Blood Pressure 1: 110/64 Code: 8480-6 BMI: 32.1 Code: 54258-4 Heart Rate 1: 79 bpm Height: 5'7" SpO2: 94% Weight: 205 lbs 07/22/2016 Blood Pressure 1: 108/74 Code: 8480-6 BMI: 32.1 Code: 49848-7 Heart Rate 1: 71 bpm Height: 5'7" SpO2: 97% Temperature: 36.9 (C ) / 98.4 (F) Weight: 205 lbs 05/01/2016 Blood Pressure 1: 120/72 Code: 8480-6 BMI: 32.7 Code: 70332-5 Heart Rate 1: 75 bpm Height: 5'7" SpO2: 94% Weight: 209 lbs 04/06/2016 Blood Pressure 1: 106/62 Code: 8480-6 BMI: 32.7 Code: 18636-7 Heart Rate 1: 83 bpm Height: 5'7" SpO2: 97% Weight: 209 lbs 03/06/2016 Blood Pressure 1: 11268 Code: 8480-6 BMI: 32.7 Code: 99749-6 Heart Rate 1: 90 bpm Height: 5'7" SpO2: 97% Weight: 209 lbs 03/03/2016 Blood Pressure 1: 120/62 Code: 8480-6 BMI: 32.7 Code: 46148-8 Heart Rate 1: 92 bpm Height: 5'7" SpO2: 98% Weight: 209 lbs 02/07/2016 Blood Pressure 1: 110/64 Code: 8480-6 BMI: 32.7 Code: 37876-9 Heart Rate 1: 87 bpm Height: 5'7" SpO2: 97% Weight: 209 lbs 12/13/2015 Blood Pressure 1: 110/64 Code: 8480-6 BMI: 33.5 Code: 53897-1 Heart Rate 1: 90 bpm Height: 5'7" SpO2: 97% Weight: 214 lbs 12/03/2015 Blood Pressure 1: 132/76 Code: 8480-6 BMI: 33.4 Code: 26721-4 Heart Rate 1: 82 bpm Height: 5'7" SpO2: 99% Weight: 213 lbs 11/20/2015 Blood Pressure 1: 108/68 Code: 8480-6 BMI: 32.4 Code: 11148-7 Heart Rate 1: 77 bpm Height: 5'7" SpO2: 97% Weight: 207 lbs 09/17/2015 Blood Pressure 1: 122/76 Code: 8480-6 BMI: 33.0 Code: 34895-9 Heart Rate 1: 91 bpm Height: 5'7" SpO2: 97% Weight: 211 lbs 05/31/2015 Blood Pressure 1: 128/82 Code: 8480-6 BMI: 33.4 Code: 53960-6 Heart Rate 1: 98 bpm Height: 5'7" SpO2: 99% Weight: 213 lbs 02/05/2015 Blood Pressure 1: 128/80 Code: 8480-6 BMI: 32.6 Code: 62293-6 Heart Rate 1: 86 bpm Height: 5'7" SpO2: 97% Weight: 208 lbs 11/20/2014 Blood Pressure 1: 128/90 Code: 8480-6 BMI: 30.9 Code: 46598-7 Heart Rate 1: 94 bpm Height: 5'7" [...] Findings Denies fever 05/31/2015 None hypothyroid 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 02/05/2015 None hypothyroid Pertinent Findings coarse [...] Denies extremity weakness 11/20/2014 None hypothyroid 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 P ATIENT, LEVEL IV Diagnosis: Atrophy of thyroid (acquired)[ICD10: E03.4] Diagnosis: Essential (primary) hypertension[ICD10: I10] Diagnosis: Other fatigue[ICD10: R53.83] Diagnosis: Localized edema[ICD10: R60.0] Valerie Pisano MD, [facility] CPT-4: 42135 07/11/2018 ([id number]) 53414 EST. P ATIENT, LEVEL IV Diagnosis: Essential (primary) hypertension[ICD10: I10] Diagnosis: Atrophy of thyroid (acquired)[ICD10: E03.4] Diagnosis: Chronic atrial fibrillation[ICD10: I48.2] Valerie Pisano MD, [facility] CPT-4: 92282 03/24/2018 ([id number]) 81316 EST. P ATIENT, LEVEL IV Diagnosis: Essential (primary) hypertension[ICD10: I10] Diagnosis: Atrophy of thyroid (acquired)[ICD10: E03.4] Diagnosis: Chronic atrial fibrillation[ICD10: I48.2] Valerie Pisaon MD, [facility] CPT-4: 09096 11/18/2017 63449 EST. PATIENT, LEVEL IV Diagnosis: Localized edema[ICD10: R60.0] Roxie Pisano MD, [facility] CPT-4: 05092 09/30/2017 ([id number]) 06921 EST. P ATIENT, LEVEL III Diagnosis: Essential (primary) hypertension[ICD10: I10] Valerie Pisano MD, [facility] CPT-4: 41734 08/17/2017 ([id number]) 51080 EST. P ATIENT, LEVEL IV Diagnosis: Essential (primary) hypertension[ICD10: I10] Diagnosis: Atrophy of thyroid (acquired)[ICD10: E03.4] Diagnosis: Chronic atrial fibrillation[ICD10: I48.2] Diagnosis: Cervicalgia[ICD10: M54.2] Diagnosis: Other muscle spasm[ICD10: M62.838] Valerie Pisano MD, [facility] CPT- 4: 76518 06/15/2017 71265 EST. PATIENT, LEVEL III Diagnosis: Laceration without foreign body of other finger without damage to nail, initial encounter[ICD10: S61.218A] Roxei Pisano MD, [facility] CPT-4: 40933 04/01/2017 ([id number]) 98414 EST. P ATIENT, LEVEL IV Diagnosis: Chronic atrial fibrillation[ICD10: I48.2] Diagnosis: prison (current) use of anticoagulants[ICD10: Z79.01] Diagnosis: Encounter for immunization[ICD10: Z23] Diagnosis: Atrophy of thyroid (acquired)[ICD10: E03.4] Valerie Pisano MD, [facility] CPT-4: 89074 03/16/2017 ([id number]) 27257 EST. P ATIENT, LEVEL IV Diagnosis: Chronic atrial fibrillation[ICD10: I48.2] Diagnosis: Essential (primary) hypertension[ICD10: I10] Diagnosis: Other fatigue[ICD10: R53.83] Diagnosis: prison (current) use of anticoagulants[ICD10: Z79.01] Diagnosis: Atrophy of thyroid (acquired)[ICD10: E03.4] Valerie Pisano MD, [facility] CPT-4: 96696 02/09/2017 ([id number]) 25235 EST. P ATIENT, LEVEL IV Diagnosis: Essential (primary) hypertension[ICD10: I10] Diagnosis: Chronic atrial fibrillation[ICD10: I48.2] Diagnosis: Tinea corporis[ICD10: B35.4] Diagnosis: prison (current) use of anticoagulants[ICD10: Z79.01] Diagnosis: Other skin changes[ICD10: R23.8] Valerie Pisano MD, [facility] CPT-4: 40915 10/13/2016 34740 EST. PATIENT, LEVEL III Diagnosis: Other acute sinusitis[ICD10: J01.80] Diagnosis: Other allergic rhinitis[ICD10: J30.89] Roxie Pisano MD, [facility] CPT-4: 11963 07/31/2016 ([id number]) 26817 EST. P ATIENT, LEVEL III Diagnosis: Acute recurrent maxillary sinusitis[ICD10: J01.01] Valerie Pisano MD, [facility] CPT-4: 73381 07/22/2016 [id number] EST. PATIENT, LEVEL IV Diagnosis: Essential (primary) hypertension[ICD10: I10] Diagnosis: Other allergic rhinitis[ICD10: J30.89] Diagnosis: Localized edema[ICD10: R60.0] Roxie Pisano MD, [facility] CPT-4: 20252 05/01/2016 25076 EST. PATIENT, LEVEL III Diagnosis: Cellulitis of left lower limb[ICD10: L03.116] Diagnosis: Localized edema[ICD10: R60.0] Roxie Pisano MD, [facility] CPT-4: 95256 04/06/2016 ([id number]) Miscellaneou s no charge Diagnosis: Cellulitis of left lower limb[ICD10: L03.116] Diagnosis: Localized edema[ICD10: R60.0] Roxie Pisano MD, [facility] CPT-4: 92636 03/10/2016 ([id number]) Miscellcarlitoou s no charge Diagnosis: Cellulitis of left lower limb[ICD10: L03.116] Roxie Pisano MD, [facility] CPT-4: 91848 03/06/2016 58083 EST. PATIENT, LEVEL IV Diagnosis: Cellulitis of left lower limb[ICD10: L03.116] Diagnosis: Localized edema[ICD10: R60.0] Roxie Pisano MD, [facility] CPT-4: 65642 03/03/2016 ([id number]) 17506 EST. 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 P ATIENT, LEVEL III Diagnosis: Iliotibial band syndrome, right leg[ICD10: M76.31] Diagnosis: Localized edema[ICD10: R60.0] Brielle Pisano MD, [facility] CPT- 4: 61777 12/13/2015 ([id number]) 10966 EST. P ATIENT, LEVEL III Diagnosis: Localized edema[ICD10: R60.0] Diagnosis: Essential (primary) hypertension[ICD10: I10] Brielle Pisano MD, [facility] CPT-4: 11953 12/03/2015 ([id number]) 48119 EST. 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 P ATIENT, LEVEL IV Diagnosis: Localized edema[ICD10: R60.0] Diagnosis: Other specified hypothyroidism[ICD10: E03.8] Diagnosis: Essential (primary) hypertension[ICD10: I10] [facility] CPT-4: 47255 05/31/2015 ([id number]) 82496 EST. P ATIENT, LEVEL III Diagnosis: ALLERGIC RHINITIS[ICD9: 477.9] Diagnosis: ESSENTIAL HYPERTENSION[ICD9: 401.9] [facility]elle [facility] CPT-4: 04262 02/05/2015 ([id number]) [facility] 4 Diagnosis: ESSENTIAL HYPERTENSION[ICD9: 401.9] Diagnosis: HYPOTHYROIDISM[ICD9: 244.9] Diagnosis: ACTINIC KERATOSIS[ICD9: 702.0] Valerie Pisano MD, [facility] CPT-4: 70971 11/20/2014 Plan of Care Planned Activity Notes C odes Status Date Patient Education: Patient Medication Summary Completed 07/29/2018 Appointment: Brielle Cavazos WPtel: [address] [place], [place] [phone] (15 min) Moderate 07/12/2018 Visit Plan: Hypertension [...] daily. 07/11/2018 App[facility]ment[phone] [facility] ([facility] min) Moderate 07/11/2018 Patient [...] today. 03/24/2018 Appointment: [phone] [facility] (15 min) Moderate 03/24/2018 Patient [...] control. 11/18/2017 Appointment: Valerie Pisano WPtel: [phone] [facility]66[facility] (15 min) Moderate 11/18/2017 Patient Education: Patient Medication Summary Completed 11/18/2017 Referral: [facility] WPtel: [address] Pt notified at appointment Appointment Confirmed [...] Unna Boots 09/30/2017 Appointment: Roxie Cazares WPtel: [facility]5 [facility] (30 min) Complex 09/30/2017 Patient Education: Patient Medication Summary Completed 09/30/2017 Care Plan: Referral Order SNOMED-CT : [id number] Pending 09/30/2017 Visit Plan: Hypertension - well [...] this time. 08/17/2017 Appointment: Valerie Pisano WPtel: [facility]5 [facility] (15 min) Moderate 08/17/2017 Patient [...] neck muscles. allergies - kenalog 40mg im Neuronetics - lot # [id number] expires september 2018 06/15/2017 Visit Plan: Hypertension [...] neck muscles. 06/15/2017 Appointment: Valerie Pisano WPtel: [address] [place], [place] [address] (15 min) Moderate 06/15/2017 Patient Education: Patient Medication Summary Completed 06/15/2017 Care Plan: Referral Order SNOMED-CT : [id number] Pending 06/15/2017 Appointment: Nurse Visit 04/05/2017 Appointment: [...] booster. 04/01/2017 Appointment: [facility] [phone] [facility] (15 min) Moderate 04/01/2017 Patient Education: [...] today 03/16/2017 App[facility]ment: [phone] [facility] (15 min) Moderate 03/16/2017 Patient [...] spray. 02/09/2017 App[facility]ment: [facility]ano [facility] [phone] [facility] (15 min) Moderate 02/09/2017 Patient [...] for nystatin 10/13/2016 Appointment: Val[facility] Pisano WPtel: [facility] (15 min) Moderate 10/13/2016 Patient Education: Patient Medication Summary Completed 10/13/2016 Patient Education: Obesity Completed 10/13/2016 Patient Education: Hypertension Completed 10/13/2016 Care Plan: Urine Culture Pending 08/31/2016 Appointment: Roxie Cazares WPtel: [facility] [facility] 08/27/2016 Appointment: Nurse Visit [...] show improvement. 07/22/2016 Appointment: Valerie Pisano WPtel: [facility] (15 min) Moderate 07/22/2016 Patient [...] peripheral edema. 05/01/2016 Appointment: Brielle Cavazos WPtel: [facility]5 [phone] (30 min) Complex 05/01/2016 Patient Education: [...] peripheral edema. 04/06/2016 Appointment: Roxie Cazares WPtel: [facility]5 [phone] (30 min) Complex 04/06/2016 Patient Education: Patient Medication Summary Completed 04/06/2016 Patient Education: Obesity Completed 04/06/2016 Visit Plan: left foot - improved - pt finished with antibiotics - continue to monitor - notify clinic with any concerns. Repeat INR today. 03/10/2016 Appointment: Brielle Cavazos WPtel: [facility]5 [phone] (30 min) Complex 03/10/2016 Patient Education: Patient Medication Summary Completed 03/10/2016 Visit Plan: Cellulitis - continue w [facility] oral antibiotics as previously directed, return to clinic as previously directed, call for acute change in symptoms, worsening redness, warmth, discharge. 03/06/2016 Appointment: Brielle Cavazos WPtel: [phone] (15 min) Moderate 03/06/2016 Patient Education: Patient Medication Summary Completed 03/06/2016 Patient Education: Obesity Completed 03/06/2016 Visit Plan: Cellulitis - continue w ith oral antibiotics as previously directed, return to clinic as previously directed, call for acute change in symptoms, worsening redness, warmth, discharge. 03/03/2016 Appointment: Brielle Cavazos WPtel: [address] [place] [address] (15 min) Moderate 03/03/2016 Patient Education: Patient [...] and 3.5. 02/07/2016 Appointment: Brielle Cavazos WPtel: [address] [place] [address] (30 min) Complex 02/07/2016 Patient Education: Patient Medication Summary Completed 02/07/2016 Patient Education: Obesity Completed 02/07/2016 Patient Education: Hypertension Completed 02/07/2016 Appointment: Brielle Cavazos WPtel: [address] [place] [address] (30 min) Complex 02/04/2016 Visit Plan: Iliotibial [...] edema. 12/13/2015 [phone] [phone] (15 min) Moderate 12/13/2015 Patient Education: [...] home. 12/03/2015 Appointment[phone] (30 min) Complex 12/03/2015 Patient Education: [...] Hypertension Completed 02/05/2015 Appointment: Valerie Pisano WPtel: [address] [place] [address] (15 min) Moderate 01/29/2015 Visit Plan: Hypertension [...] of control. 11/20/2014 Appointment: Valerie Pisano WPtel: [address] [place], [place] [phone] [place] ([place]) New Patient 11/20/2014 Patient Education: Patient Medication Summary Completed 11/20/2014 Patient Education: Hypertension Completed 11/20/2014 Patient Education: Patient Medication Summary Completed 10/19/2014 Referral: [facility] WPtel: Referral Appointment Requested Referral: [facility] WPtel: [address] Referral Appointment Confirmed Instructions Comment . Edema [...] to wound care for possible Unna Boots 1 pill wed/wed/wed, 1/2 pill tues/th/sat/sun take - This is a new order [...] of control. 1 pill wed/wed/wed, 1/2 pill tues/th/ sat/sun take - This is a new [...] spray. Kenalog injection today in the office. CHECK LABS TODAY-WE WILL CALL YOU AFTER [...] change in blood pressure readings at home. Check your PT INR on Wednesday or [...] continue with supportive care at this time. check coumadin level on wednesday Nasal spray- [...] physical therapy - will refer to [facility]. RX for voltaren to neck muscles. allergies - kenalog 40mg im [employer] - lot # [id number] expires september 2018 . Hypertension - wel [...] of control. get blood work one w [facility] before next appt - fasting labs Decrease [...] clinic with any concerns. Repeat INR today. Increase Lasix to tw ice a day [...] physical therapy - will refer to [facility]. RX for voltaren to [...]
--- OUTSIDE RECORDS SUMMARY | 2019-09-12 11:49 | XMS REPORT | CCD ---
Author Author Clara Pisano Organization [facility] Address [address] [place] [address] Phone Care Team Providers Care Veneer Drier Name Role Phone PP Unavailable CCM Unavailable Summary Purpose Interface Exchange Insurance Providers Payer name Policy type / Coverage type Covered democrat ID Effective Begin Date Effective End Date WPS Medicare Part B Medicare Part B [id number] 2018 Unknown [employer] Medicare Part B [id number] 2018 Unknown Family history Sister Diagnosis Age At Onset defect Unknown Breast cancer Unknown Daughter Diagnosis Age At Onset Breast cancer Unknown Mother Diagnosis Age At Onset No Family Disease Entered N/A Social History Social History Element Codes Description Effective Dates Marital status Unknown M arried Lane 11/20/2014 Number of children Unknown 6 11/20/2014 Employment Unknown Retir ed 11/20/[address]: 2254458 Quit over 10 years ago 1963 11/20/2014 [...] ICD-9: 883.0 ICD-10: S61.218A Active 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 ICD-9: V58.61 [...] encounter ICD-9: 883.0 ICD-10: S61.218A 04/01/2017 Active 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 ICD-9: V58.61 [...] 11/19/2014 Active HYPOTHYROIDISM ICD-9: 244.9 11/19/2014 Active 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 ICD-9: V58.61 10/19/2014 Active Medications Medication Codes Instruc tions Start Date Stop Date Sta tus Fill Instructions meclizine 25 mg tablet RxNorm: 651701 1 Tablet(s) PO TID as needed Dizziness 07/22/2018 No Stop Date Active meclizine 25 mg tablet RxNorm: 357611 1 Tablet(s) PO TID as needed Dizziness 07/19/2018 07/21/2018 In active Coumadin 4 mg tablet RxNorm: 435816 1 Tablet(s) PO daily except 1.5 pills on WEDNESDAY AND Wednesday07/11/2018 07/05/2019 Active this is an update to her RX - she will let you know when she needs refill furosemide 40 mg tablet RxNorm: 109382 1 Tablet(s) BID take 1.5 tabs twice a da y x 7 days then 1 pill daily thereafter 07/11/2018 02/05/2019 Active warfarin 5 mg tablet RxNorm: 870465 Tablet(s) TAKE ONE TABLET BY MOUTH DAILY EXCEPT / TAKE 4 MG 04/06/2018 08/22/2019 Active diltiazem 60 mg tablet RxNorm: 989821 1/2 Tablet(s) PO QID 03/24/2018 No Stop Date Active levothyroxine 125 mc g tablet RxNorm: 488982 TAKE ONE TABLET BY MO UTH DAILY ON WEDNESDAY, WED, AND WEDNESDAY, AND 1/2 TABLET ON , , WED AND WEDNESDAY. TAKE ON AN EMPTY STOMACH 02/02/2018 07/31/2018 Active Coumadin 4 mg tablet RxNorm: 254419 TAKE ONE TABLET BY MOUTH DAILY ON AND Wednesday10/14/2017 07/10/2018 Inactive nystatin 100,000 uni t/gram topical cream RxNorm: 324506 1 Application TOP TID 08/17/2017 No Stop Date Active triamcinolone aceton sreekanth 0.025 % topical cream RxNorm: 3696963 1 Application TOP BI D 08/17/2017 No Stop Date Active Voltaren 1 % topical gel RxNorm: 660458 2 Gram(s) TOP TID luiz ly to shoulder and neck 08/17/2017 No Stop Date Active levothyroxine 125 mc g tablet RxNorm: 230074 1 Tablet(s) UD 1 pill wed/wed/wed, 1/2 pill //wed/wed take ON AN EMPTY STOMACH 08/05/2017 02/01/2018 Inactive Coumadin 4 mg tablet RxNorm: 977467 1 Tablet(s) PO Wed/07/29/2017 10/13/2017 Inactive warfarin 5 mg tablet RxNorm: 354892 TAKE 1 AND 1/2 TABLETS BY MOUTH ON AND WEDNESDAY. TAKE ONLY 1 TABLET BY MOUTH ALL OTHER DAYS OF THE WEEK 07/12/2017 04/05/2018 In active furosemide 40 mg tablet RxNorm: 594241 Tablet(s) BID TAKE ONE TABLET BY MOUTH D AILY 06/15/2017 07/10/2018 Inactive Voltaren 1 % topical gel RxNorm: 472739 2 Gram(s) TOP TID luiz ly to shoulder and neck 06/15/2017 08/16/2017 Inactive Keflex 500 mg capsule RxNorm: 822745 1 Capsule(s) PO TID 04/01/2017 04/07/2017 Inactive furosemide 40 mg tablet RxNorm: 693577 TAKE ONE TABLET BY MOUTH DAILY 03/18/2017 06/14/2017 In active Claritin-D 12 Hour 5 mg-120 mg tablet,extended release RxNorm: 3298478 1 Tablet(s) PO BID 03/16/2017 05/14/2017 Inactive Lipitor 20 mg tablet RxNorm: 806376 1 Tablet(s) PO daily 02/09/2017 03/10/2017 Inactive lisinopril 2.5 mg ta blet RxNorm: 354834 1 Tablet(s) PO daily 02/09/2017 03/10/2017 Inactive Nasonex 50 mcg/actua tion [place] RxNorm: 7992825 1 [place] NASAL BID 02/09/2017 09/06/2017 Inactive levothyroxine 125 mc g tablet RxNorm: 386541 1 Tablet(s) UD 1 pill wed/wed/wed, 1/2 pill //wed/sun take ON AN EMPTY STOMACH 02/09/2017 08/04/2017 Inactive fluorouracil 5 % top ical cream RxNorm: 880123 1 Application TOP BID 02/09/2017 02/18/2017 Inactive potassium chloride E R 20 mEq tablet,extended release RxNorm: 908230 Tablet(s) TAKE ONE TABLET BY MOUTH DAILY 02/08/2017 02/02/2018 Inactive warfarin 5 mg tablet RxNorm: 872508 TAKE 1 AND 1/2 TABLETS BY MOUTH ON AND WEDNESDAY. TAKE ONLY 1 TABLET BY MOUTH ALL OTHER DAYS OF THE WEEK 12/14/2016 05/30/2017 In active potassium chloride E R 20 mEq tablet,extended release RxNorm: 336663 TAKE ONE TABLET BY MOUTH DAILY 10/29/2016 01/26/2017 Inactive warfarin 5 mg tablet RxNorm: 272537 TAKE 1 AND 1/2 TABLETS BY MOUTH ON AND WEDNESDAY. TAKE ONLY 1 TABLET BY MOUTH ALL OTHER DAYS OF THE WEEK 10/27/2016 12/13/2016 In active nystatin 100,000 uni t/gram topical cream RxNorm: 765515 1 Application TOP TID 10/13/2016 08/16/2017 In active nitrofurantoin 50 mg capsule RxNorm: 241389 1 Capsule(s) PO BID 09/04/2016 09/03/2016 Inactive nitrofurantoin macro crystal 50 mg capsule RxNorm: 223484 1 Capsule(s) PO BID 09/04/2016 09/10/2016 In active Cipro 500 mg tablet RxNorm: 420514 1 Tablet(s) PO BID 08/26/2016 10/12/2016 Inactive Zyrtec 10 mg tablet RxNorm: 6938143 1 Tablet(s) PO daily 07/31/2016 08/29/2016 Inactive prednisone 20 mg tablet RxNorm: 849291 2 Tablet(s) PO daily 07/31/2016 08/02/2016 Inactive Kenalog 40 mg/mL zohra pension for injection RxNorm: 0902729 Milliliter(s) Inj 07/22/2016 07/22/2016 In active ceftriaxone 500 mg s olution for injection RxNorm: 6951073 Inj 07/22/2016 07/22/2016 Inactive Flonase Allergy Reli ef 50 mcg/actuation nasal spray,suspension RxNorm: 3323850 1 [place] NASAL BID 07/22/2016 08/20/2016 Inactive azithromycin 250 mg tablet RxNorm: 095452 2 Tablet(s) PO on day #1, then 1 pill daily x 4 days 07/22/2016 10/12/2016 Inactive warfarin 5 mg tablet RxNorm: 930379 TAKE 1 AND 1/2 TABLETS BY MOUTH ON AND WEDNESDAY. TAKE ONLY 1 TABLET BY MOUTH ALL OTHER DAYS OF THE WEEK 07/09/2016 09/30/2016 In active levothyroxine 125 mc g tablet RxNorm: 439126 Tablet(s) TAKE ONE TA BLET BY MOUTH DAILY ON AN EMPTY STOMACH 06/23/2016 02/08/2017 Inactive levothyroxine 125 mc g tablet RxNorm: 806881 TAKE ONE TABLET BY MO UTH DAILY ON AN EMPTY STOMACH 06/23/2016 06/22/2016 Inactive levothyroxine 125 mc g tablet RxNorm: 607541 TAKE ONE TABLET BY MO UTH DAILY ON AN EMPTY STOMACH 06/23/2016 08/04/2017 Inactive cetirizine 10 mg tablet RxNorm: 4881429 TAKE ONE TABLET BY MOUTH DAILY 06/16/2016 10/13/2016 In active furosemide 40 mg tablet RxNorm: 860767 Tablet(s) TAKE ONE TABLET BY MOUTH DAILY 06/05/2016 12/01/2016 In active cetirizine 10 mg tablet RxNorm: 8320716 1 Tablet(s) PO daily 05/01/2016 05/30/2016 Inactive Levaquin 250 mg tablet RxNorm: 002620 Tablet(s) PO 2 pills day one and 1 pill day 2-7 04/06/2016 07/21/2016 Inactive warfarin 5 mg tablet RxNorm: 548269 Tablet(s) 1/2 TABLETS BY MOUTH ON AND WEDNESDAY. TAKE ONLY 1 TABLET BY MOUTH ALL OTHER DAYS OF THE WEEK 03/18/2016 07/07/2016 In active triamcinolone aceton sreekanth 0.025 % topical cream RxNorm: 9148567 1 Application TOP BI D 03/10/2016 08/16/2017 In active potassium chloride E R 20 mEq tablet,extended release RxNorm: 269585 1 Tablet(s) PO daily 03/04/2016 06/01/2016 Inactive Levaquin 250 mg tablet RxNorm: 606001 Tablet(s) PO 2 pills day one and 1 pill day 2-7 03/04/2016 04/05/2016 Inactive Levaquin 250 mg tablet RxNorm: 332209 Tablet(s) PO 2 pills day one and 1 pill day 2-7 03/03/2016 03/03/2016 Inactive potassium chloride E R 20 mEq tablet,extended release RxNorm: 315542 1 Tablet(s) PO daily 03/03/2016 03/03/2016 Inactive Cipro 500 mg tablet RxNorm: 069175 1 Tablet(s) PO BID 02/20/2016 07/21/2016 Inactive Cipro 500 mg tablet RxNorm: 051571 1 Tablet(s) PO BID 02/20/2016 02/19/2016 Inactive furosemide 40 mg tablet RxNorm: 583140 TAKE ONE TABLET BY MOUTH DAILY 01/27/2016 01/26/2016 In active warfarin 5 mg tablet RxNorm: 179314 TAKE 1 AND 1/2 TABLETS BY MOUTH ON AND WEDNESDAY. TAKE ONLY 1 TABLET BY MOUTH ALL OTHER DAYS OF THE WEEK 01/27/2016 01/26/2016 In active furosemide 40 mg tablet RxNorm: 444828 TAKE ONE TABLET BY MOUTH DAILY 01/27/2016 06/04/2016 In active warfarin 5 mg tablet RxNorm: 292455 TAKE 1 AND 1/2 TABLETS BY MOUTH ON AND WEDNESDAY. TAKE ONLY 1 TABLET BY MOUTH ALL OTHER DAYS OF THE WEEK 01/27/2016 03/17/2016 In active potassium chloride E R 20 mEq tablet,extended release RxNorm: 063154 1 Tablet(s) PO daily 11/20/2015 03/02/2016 Inactive furosemide 40 mg tablet RxNorm: 245218 TAKE ONE TABLET BY MOUTH DAILY 11/12/2015 01/26/2016 In active Zovirax 5 % topical cream RxNorm: 563872 TOP QID 0 09/24/2015 09/23/2015 Inactive Zovirax 5 % topical cream RxNorm: 398837 TOP QID 0 09/24/2015 11/19/2015 Inactive nystatin 100,000 uni t/gram topical cream RxNorm: 131412 1 Application TOP TID 09/17/2015 10/12/2016 In active warfarin 5 mg tablet RxNorm: 313414 TAKE 1 AND 1/2 TABLETS BY MOUTH ON AND WEDNESDAY. TAKE ONLY 1 TABLET BY MOUTH ALL OTHER DAYS OF THE WEEK 08/19/2015 01/05/2016 In active loratadine 10 mg tablet RxNorm: 568034 1 Tablet(s) PO daily 07/30/2015 07/23/2016 Inactive loratadine 10 mg tablet RxNorm: 579709 1 Tablet(s) PO daily 07/30/2015 07/29/2015 Inactive furosemide 40 mg tablet RxNorm: 312471 TAKE ONE TABLET BY MOUTH DAILY 06/24/2015 11/11/2015 In active levothyroxine 125 mc g tablet RxNorm: 243526 1 Tablet(s) PO daily 05/31/2015 05/24/2016 Inactive furosemide 40 mg tablet RxNorm: 233717 1 Tablet(s) PO daily 04/05/2015 06/23/2015 Inactive warfarin 5 mg tablet RxNorm: 506396 TAKE 1 AND 1/2 TABLETS BY MOUTH ON AND WEDNESDAY. TAKE ONLY 1 TABLET BY MOUTH ALL OTHER DAYS OF THE WEEK 02/12/2015 07/29/2015 In active Flonase Allergy Reli ef 50 mcg/actuation nasal spray,suspension RxNorm: 2 [place] NASAL daily 02/05/2015 03/06/2015 Inactive Kenalog 40 mg/mL zohra pension for injection RxNorm: 7702027 Milliliter(s) Inj 02/05/2015 02/05/2015 In active warfarin 5 mg tablet RxNorm: 917075 Take 7.5mg (1 1/2 tablets) Wednesday and and 1 Tablet(s) PO (5mg) all other days 01/11/2015 02/09/2015 Inactive levothyroxine 125 mc g tablet RxNorm: 714961 1 Tablet(s) PO every other day 01/01/2015 05/30/2015 In active alternate with 150 levothyroxine 150 mc g tablet RxNorm: 077113 1 Tablet(s) PO every other day 01/01/2015 05/30/2015 In active alternate with 125 loratadine 10 mg tablet RxNorm: 044289 Tablet(s) PO as needed No Start Date Active Fish Oil 1,000 mg ca psule RxNorm: 1 Capsule(s) PO TID No Start Date Active magnesium 250 mg tablet RxNorm: 1 Tablet(s) PO daily No Start Date Active Vitamin D3 2,000 uni t tablet RxNorm: 946133 2 Tablet(s) PO daily No Start Date Active Fosamax 35 mg tablet RxNorm: 432204 1 Tablet(s) PO QW No Start Date Active levothyroxine 125 mc g tablet RxNorm: 674374 1 Tablet(s) PO daily No Start Date 12/31/2014 Inactive levothyroxine 150 mc g tablet RxNorm: 087864 1 Tablet(s) PO daily No Start Date 12/31/2014 Inactive diltiazem 60 mg tablet RxNorm: 024451 1 Tablet(s) PO QID No Start Date 03/23/2018 Inactive meclizine 25 mg tablet RxNorm: 763650 1 Tablet(s) PO TID as needed Dizziness No Start Date 07/18/2018 Inactive furosemide 40 mg tablet RxNorm: 921705 1 Tablet(s) PO daily No Start Date 04/04/2015 Inactive potassium chloride RxNorm: miscellaneous No Start Date 11/19/2015 Inactive Vitamin D2 oral RxNorm: 4018 oral No Start Date 05/31/2015 Inactive warfarin 5 mg tablet RxNorm: 118709 1 Tablet(s) PO daily No Start Date 01/10/2015 Inactive Coumadin 4 mg tablet RxNorm: 472158 1 Tablet(s) PO Wed/ No Start Date 07/28/2017 Inactive Medication Administered Medication Codes Instruc tions Start Date Status Kenalog 40 mg/mL suspension for injection RxNorm: 1524921 Milliliter 07/22/2016 No longer Active ceftriaxone 500 mg solution for injection RxNorm: 9952423 07/22/2016 No longer A ctive Kenalog 40 mg/mL suspension for injection RxNorm: 3238746 Milliliter 02/05/2015 No longer Active Immunizations Vaccine [...] initial encounter ICD-10: S61.218A ICD-9: 883.0 04/01/2017 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 ICD-10: Z79.01 ICD-9: [...] 11/20/2014 ACTINIC KERATOSIS ICD-9: 702.0 11/20/2014 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 ICD-9: [...] Code Item Item Code Result Date Pt Yjw4425 PT 24.2 seconds 07/25/2018 Pt Yjz5804 INR 2.2 07/25/2018 Pt Lwi2272 Low Intensity - 1.5-2.0 07/25/2018 Pt Toz1438 Mod intensity - 2.0-3.0 07/25/2018 Pt Dzu7728 Hi intensity - 3.0-4.0 07/25/2018 Pt Uuh3057 PT 38.6 seconds 07/19/2018 Pt Hmh9488 INR 4.0 07/19/2018 Pt Kgg9739 Low Intensity - 1.5-2.0 07/19/2018 Pt Imc3890 Mod intensity - 2.0-3.0 07/19/2018 Pt Ftz6146 Hi intensity - 3.0-4.0 07/19/2018 Pt Wug8315 PT 25.7 seconds 07/11/2018 Pt Qlv9264 INR 2.4 07/11/2018 Pt Nuw8949 Low Intensity - 1.5-2.0 07/11/2018 Pt Ovs4539 Mod intensity - 2.0-3.0 07/11/2018 Pt Qoq2978 Hi intensity - 3.0-4.0 07/11/2018 Pt Ofn8313 PT 18.5 seconds 07/08/2018 Pt Ezh8025 INR 1.6 07/08/2018 Pt Vgc8538 Low Intensity - 1.5-2.0 07/08/2018 Pt Vey9801 Mod intensity - 2.0-3.0 07/08/2018 Pt Ebl6731 Hi intensity - 3.0-4.0 07/08/2018 Pt Tyl8402 PT 27.3 seconds 06/29/2018 Pt Lra8039 INR 2.6 06/29/2018 Pt Soh4327 Low Intensity - 1.5-2.0 06/29/2018 Pt Qkx5300 Mod intensity - 2.0-3.0 06/29/2018 Pt Jef9853 Hi intensity - 3.0-4.0 06/29/2018 Pt Ynf8717 PT 24.0 seconds 05/26/2018 Pt Uzm8361 INR 2.2 05/26/2018 Pt Bgu5533 Low Intensity - 1.5-2.0 05/26/2018 Pt Pjz7015 Mod intensity - 2.0-3.0 05/26/2018 Pt Znr9385 Hi intensity - 3.0-4.0 05/26/2018 Tsh Ord6 [...] 29.6 pg 03/25/2018 Cbc With Differential Ord2 [place]% 9.5 % 03/25/2018 Cbc With Differential Ord2 [...] 2.19 K/ul 03/25/2018 Cbc With Differential Ord2 [place] ABS# 0.8 K/ul 03/25/2018 Cbc With Differential Ord2 Eos ABS# 0.3 K/ul 03/25/2018 Cbc With Differential Ord2 Baso ABS# 0.0 K/ul 03/25/2018 Lipid Ord30 CHOL 156 mg/dL 03/25/2018 Lipid Ord30 HDL 52.0 mg/dl 03/25/2018 Lipid Ord30 TRIG 98 mg/dL 03/25/2018 Lipid Ord30 LDL 84 mg/dL 03/25/2018 Lipid Ord30 C/HDL 3.0 Ratio 03/25/2018 Free T4 Iej436 FREE T4 1.73 ng/dL 03/25/2018 Comp Metabolic Ier241 NA 143 mEq/L 03/25/2018 Comp Metabolic Jds499 K 4.6 mEq/L 03/25/2018 Comp Metabolic Kkf143 CL 108 mEq/L 03/25/2018 Comp Metabolic Hlp298 CO2 26.0 mEq/L 03/25/2018 Comp Metabolic Fnf372 AN ION GAP 14 03/25/2018 Comp Metabolic Mim217 GL UCOSE 87 mg/dL 03/25/2018 Comp Metabolic Nkv586 Cr eat 1.2 mg/dL 03/25/2018 Comp Metabolic Eyc930 eG FR 48 ml/min/1.73m2 03/25 Comp Metabolic Brj644 BUN 18 mg/dL 03/25/2018 Comp Metabolic Gft871 B/ C Ratio 15.5 Ratio 03/25/2018 Comp Metabolic Chy398 CA LCIUM 9.1 mg/dL 03/25/2018 Comp Metabolic Tci635 AL K PHOS 58 U/L 03/25/2018 Comp Metabolic Yng846 T(SGOT) 21 U/L 03/25/2018 Comp Metabolic Dfr823 AL T(SGPT) 13 U/L 03/25/2018 Comp Metabolic Pxs116 BI LI T 0.7 mg/dL 03/25/2018 Comp Metabolic Pbw154 AL BUMIN 3.2 g/dL 03/25/2018 Comp Metabolic Plk935 TP RO 5.5 g/dL 03/25/2018 Comp Metabolic Czj624 GL OB 2.3 g/dL 03/25/2018 Comp Metabolic Mny657 A/ G Ratio 1.4 Ratio 03/25/2018 Comp Metabolic Vpe415 Os mo 286 mOsmo 03/25/2018 Pt Wjv7064 PT 29.0 seconds 03/22/2018 Pt Pgi9931 INR 2.7 03/22/2018 Pt Mkh0715 Low Intensity - 1.5-2.0 03/22/2018 Pt Tno9875 Mod intensity - 2.0-3.0 03/22/2018 Pt Jaj9510 Hi intensity - 3.0-4.0 03/22/2018 Pt Ttf0851 PT 27.1 seconds 02/25/2018 Pt Tip7326 INR 2.5 02/25/2018 Pt Zcj9390 Low Intensity - 1.5-2.0 02/25/2018 Pt Bde1281 Mod intensity - 2.0-3.0 02/25/2018 Pt Nyh0052 Hi intensity - 3.0-4.0 02/25/2018 Pt Myw6573 PT 26.1 seconds 01/26/2018 Pt Nbk0156 INR 2.4 01/26/2018 Pt Bkh0236 Low Intensity - 1.5-2.0 01/26/2018 Pt Trr7666 Mod intensity - 2.0-3.0 01/26/2018 Pt Jpu6127 Hi intensity - 3.0-4.0 01/26/2018 Pt Qqh4585 PT 22.8 seconds 12/24/2017 Pt Jfi7723 INR 2.0 12/24/2017 Pt Sje8301 Low Intensity - 1.5-2.0 12/24/2017 Pt Moy6706 Mod intensity - 2.0-3.0 12/24/2017 Pt Yrv2876 Hi intensity - 3.0-4.0 12/24/2017 Pt Yzd6209 PT 29.4 seconds 11/18/2017 Pt Rbo7321 INR 2.8 11/18/2017 Pt Sph4622 Low Intensity - 1.5-2.0 11/18/2017 Pt Qij3610 Mod intensity - 2.0-3.0 11/18/2017 Pt Iwb2686 Hi intensity - 3.0-4.0 11/18/2017 Pt Vsu0041 PT 26.6 seconds 09/13/2017 Pt Ayz3052 INR 2.4 09/13/2017 Pt Abd1014 Low Intensity - 1.5-2.0 09/13/2017 Pt Txf7410 Mod intensity - 2.0-3.0 09/13/2017 Pt Uyv2471 Hi intensity - 3.0-4.0 09/13/2017 Pt Vjd5115 PT 28.2 seconds 08/10/2017 Pt Cuq0351 INR 2.6 08/10/2017 Pt Rkm5361 Low Intensity - 1.5-2.0 08/10/2017 Pt Ucm4647 Mod intensity - 2.0-3.0 08/10/2017 Pt Yzl4650 Hi intensity - 3.0-4.0 08/10/2017 Pt Lhs1476 PT 33.9 seconds 07/27/2017 Pt Hsj1644 INR 3.3 07/27/2017 Pt Fzq0708 Low Intensity - 1.5-2.0 07/27/2017 Pt Suu1506 Mod intensity - 2.0-3.0 07/27/2017 Pt Uba4562 Hi intensity - 3.0-4.0 07/27/2017 Pt Hku8445 PT 29.1 seconds 06/29/2017 Pt Sfy9854 INR 2.7 06/29/2017 Pt Qwa6103 Low Intensity - 1.5-2.0 06/29/2017 Pt Aqi8408 Mod intensity - 2.0-3.0 06/29/2017 Pt Abi7775 Hi intensity - 3.0-4.0 06/29/2017 Pt Yfj2237 PT 30.3 seconds 06/11/2017 Pt Mrr6647 INR 2.9 06/11/2017 Pt Uko4143 Low Intensity - 1.5-2.0 06/11/2017 Pt Hld4512 Mod intensity - 2.0-3.0 06/11/2017 Pt Dow5368 Hi intensity - 3.0-4.0 06/11/2017 Pt Tnj2740 PT 39.1 seconds 06/07/2017 Pt Pfk1727 INR 3.9 06/07/2017 Pt Tfz1611 Low Intensity - 1.5-2.0 06/07/2017 Pt Drr8370 Mod intensity - 2.0-3.0 06/07/2017 Pt Zww7104 Hi intensity - 3.0-4.0 06/07/2017 Pt Sms3186 PT 34.2 seconds 05/26/2017 Pt Wyd4393 INR 3.3 05/26/2017 Pt Szj7438 Low Intensity - 1.5-2.0 05/26/2017 Pt Tsq4266 Mod intensity - 2.0-3.0 05/26/2017 Pt Rhd2485 Hi intensity - 3.0-4.0 05/26/2017 Comp Metabolic Dko090 NA 138 mEq/L 04/23/2017 Comp Metabolic Opo316 K 4.2 mEq/L 04/23/2017 Comp Metabolic Lcg185 CL 101 mEq/L 04/23/2017 Comp Metabolic Idl960 CO2 28.0 mEq/L 04/23/2017 Comp Metabolic Zmc462 AN ION GAP 13 04/23/2017 Comp Metabolic Kfy455 GL UCOSE 89 mg/dL 04/23/2017 Comp Metabolic Bei489 Cr eat 1.1 mg/dL 04/23/2017 Comp Metabolic Isg048 eG FR 51 ml/min/1.73m2 04/23 Comp Metabolic Znp433 BUN 26 mg/dL 04/23/2017 Comp Metabolic Kgr188 B/ C Ratio 23.9 Ratio 04/23/2017 Comp Metabolic Vur177 CA LCIUM 9.4 mg/dL 04/23/2017 Comp Metabolic Rdb567 AL K PHOS 95 U/L 04/23/2017 Comp Metabolic Nkn940 T(SGOT) 18 U/L 04/23/2017 Comp Metabolic Ifo036 AL T(SGPT) 17 U/L 04/23/2017 Comp Metabolic Ojk095 BI LI T 0.7 mg/dL 04/23/2017 Comp Metabolic Izg793 AL BUMIN 3.2 g/dL 04/23/2017 Comp Metabolic Hnl385 TP RO 5.6 g/dL 04/23/2017 Comp Metabolic Bee716 GL OB 2.4 g/dL 04/23/2017 Comp Metabolic Lbu619 A/ G Ratio 1.3 Ratio 04/23/2017 Comp Metabolic Swj600 Os mo 280 mOsmo 04/23/2017 Pt Sdh1468 PT 28.6 seconds 04/23/2017 Pt Ecj9639 INR 2.7 04/23/2017 Pt Vkv4365 Low Intensity - 1.5-2.0 04/23/2017 Pt Pwz1258 Mod intensity - 2.0-3.0 04/23/2017 Pt Sbr0395 Hi intensity - 3.0-4.0 04/23/2017 Pt Xug1535 PT 24.4 seconds 03/16/2017 Pt Yoo5198 INR 2.2 03/16/2017 Pt Ktd0792 Low Intensity - 1.5-2.0 03/16/2017 Pt Jai5505 Mod intensity - 2.0-3.0 03/16/2017 Pt Umv2098 Hi intensity - 3.0-4.0 03/16/2017 Pt Yia2916 PT 28.2 seconds 02/24/2017 Pt Bad2891 INR 2.6 02/24/2017 Pt Iza8679 Low Intensity - 1.5-2.0 02/24/2017 Pt Pif3753 Mod intensity - 2.0-3.0 02/24/2017 Pt Tnh0455 Hi intensity - 3.0-4.0 02/24/2017 Pt Lhi1750 PT 26.8 seconds 02/08/2017 Pt Kwn8334 INR 2.5 02/08/2017 Pt Yxq2744 Low Intensity - 1.5-2.0 02/08/2017 Pt Xbd5851 Mod intensity - 2.0-3.0 02/08/2017 Pt Lkq5408 Hi intensity - 3.0-4.0 02/08/2017 Lipid Ord30 CHOL 150 mg/dL 01/25/2017 Lipid Ord30 HDL 55.0 mg/dl 01/25/2017 Lipid Ord30 TRIG 66 mg/dL 01/25/2017 Lipid Ord30 LDL 82 mg/dL 01/25/2017 Lipid Ord30 C/HDL 2.7 Ratio 01/25/2017 Pt His5756 PT 29.9 seconds 01/25/2017 Pt See9145 INR 2.8 01/25/2017 Pt Nhm8454 Low Intensity - 1.5-2.0 01/25/2017 Pt Xvh1983 Mod intensity - 2.0-3.0 01/25/2017 Pt Evh1273 Hi intensity - 3.0-4.0 01/25/2017 Comp Metabolic Tms979 NA 143 mEq/L 01/25/2017 Comp Metabolic Vpp311 K 3.9 mEq/L 01/25/2017 Comp Metabolic Ugg481 CL 108 mEq/L 01/25/2017 Comp Metabolic Zwz417 CO2 23.0 mEq/L 01/25/2017 Comp Metabolic Elv375 AN ION GAP 16 01/25/2017 Comp Metabolic Dmt486 GL UCOSE 80 mg/dL 01/25/2017 Comp Metabolic Fav773 Cr eat 1.0 mg/dL 01/25/2017 Comp Metabolic Jyh191 eG FR 57 ml/min/1.73m2 01/25 Comp Metabolic Bjm105 BUN 25 mg/dL 01/25/2017 Comp Metabolic Qcw534 B/ C Ratio 25.0 Ratio 01/25/2017 Comp Metabolic Mvy264 CA LCIUM 8.5 mg/dL 01/25/2017 Comp Metabolic Vup573 AL K PHOS 81 U/L 01/25/2017 Comp Metabolic Peu454 T(SGOT) 19 U/L 01/25/2017 Comp Metabolic Ynm118 AL T(SGPT) 23 U/L 01/25/2017 Comp Metabolic Tew639 BI LI T 0.5 mg/dL 01/25/2017 Comp Metabolic Bkj740 AL BUMIN 2.9 g/dL 01/25/2017 Comp Metabolic Tsh354 TP RO 5.1 g/dL 01/25/2017 Comp Metabolic Tnb416 GL OB 2.2 g/dL 01/25/2017 Comp Metabolic Iwa088 A/ G Ratio 1.3 Ratio 01/25/2017 Comp Metabolic Xje835 Os mo 288 mOsmo 01/25/2017 Cbc With [...] 30.7 pg 01/25/2017 Cbc With Differential Ord2 [place]% 8.2 % 01/25/2017 Cbc With Differential Ord2 [...] 3.10 K/ul 01/25/2017 Cbc With Differential Ord2 [place] ABS# 0.8 K/ul 01/25/2017 Cbc With Differential Ord2 Eos ABS# 0.4 K/ul 01/25/2017 Cbc With Differential Ord2 Baso ABS# 0.1 K/ul 01/25/2017 Free T4 Ksw485 FREE T4 2.09 ng/dL 01/25/2017 Tsh Ord6 hTSH II 0.46 uIU/mL 01/25/2017 Pt Zmq8192 PT 26.1 seconds 11/26/2016 Pt Crq3040 INR 2.6 11/26/2016 Pt Zdv3176 Low Intensity - 1.5-2.0 11/26/2016 Pt Hjx8525 Mod intensity - 2.0-3.0 11/26/2016 Pt Pzh6959 Hi intensity - 3.0-4.0 11/26/2016 Pt Uvb3958 PT 26.2 seconds 10/29/2016 Pt Lrh7822 INR 2.6 10/29/2016 Pt Hct9142 Low Intensity - 1.5-2.0 10/29/2016 Pt Yjs4938 Mod intensity - 2.0-3.0 10/29/2016 Pt Vpg2658 Hi intensity - 3.0-4.0 10/29/2016 Pt Gtf2470 PT 20.8 seconds 10/13/2016 Pt Nxw3188 INR 1.9 10/13/2016 Pt Aiy3767 Low Intensity - 1.5-2.0 10/13/2016 Pt Lxj7805 Mod intensity - 2.0-3.0 10/13/2016 Pt Xqk8567 Hi intensity - 3.0-4.0 10/13/2016 Pt Kpp8866 PT 26.5 seconds 10/01/2016 Pt Rmx9257 INR 2.6 10/01/2016 Pt Xrl8976 Low Intensity - 1.5-2.0 10/01/2016 Pt Fbu7702 Mod intensity - 2.0-3.0 10/01/2016 Pt Uto7520 Hi intensity - 3.0-4.0 10/01/2016 Pt Ljj5264 PT 24.6 seconds 09/14/2016 Pt Mgs2386 INR 2.4 09/14/2016 Pt Lzo6099 Low Intensity - 1.5-2.0 09/14/2016 Pt Ocn0493 Mod intensity - 2.0-3.0 09/14/2016 Pt Sgs7610 Hi intensity - 3.0-4.0 09/14/2016 Pt Yvv8329 PT 18.0 seconds 09/07/2016 Pt Zgs3056 INR 1.6 09/07/2016 Pt Dra3404 Low Intensity - 1.5-2.0 09/07/2016 Pt Lvy6182 Mod intensity - 2.0-3.0 09/07/2016 Pt Fbv8354 Hi intensity - 3.0-4.0 09/07/2016 Pt Bmm3534 PT 23.7 seconds 08/12/2016 Pt Yvl0419 INR 2.2 08/12/2016 Pt Zme2313 Low Intensity - 1.5-2.0 08/12/2016 Pt Rfv2956 Mod intensity - 2.0-3.0 08/12/2016 Pt Vba5664 Hi intensity - 3.0-4.0 08/12/2016 Pt Uzd6243 PT 21.6 seconds 07/27/2016 Pt Mgy2360 INR 2.0 07/27/2016 Pt Yre5585 Low Intensity - 1.5-2.0 07/27/2016 Pt Mma4279 Mod intensity - 2.0-3.0 07/27/2016 Pt Wpc1801 Hi intensity - 3.0-4.0 07/27/2016 Pt Dxr9171 PT 26.0 seconds 06/15/2016 Pt Rwy8205 INR 2.5 06/15/2016 Pt Njf9040 Low Intensity - 1.5-2.0 06/15/2016 Pt Wka2327 Mod intensity - 2.0-3.0 06/15/2016 Pt Cql4171 Hi intensity - 3.0-4.0 06/15/2016 Pt Dyl0463 PT 18.8 seconds 06/01/2016 Pt Bjz4929 INR 1.7 06/01/2016 Pt Tab5728 Low Intensity - 1.5-2.0 06/01/2016 Pt Wvk6653 Mod intensity - 2.0-3.0 06/01/2016 Pt Gej2766 Hi intensity - 3.0-4.0 06/01/2016 Pt Fwz4024 PT 20.8 seconds 05/12/2016 Pt Pdy4117 INR 1.9 05/12/2016 Pt Ijc1497 Low Intensity - 1.5-2.0 05/12/2016 Pt Zkg0479 Mod intensity - 2.0-3.0 05/12/2016 Pt Ill2395 Hi intensity - 3.0-4.0 05/12/2016 Pt Hmr0522 PT 24.5 seconds 04/10/2016 Pt Ssb7522 INR 2.4 04/10/2016 Pt Tmo6873 Low Intensity - 1.5-2.0 04/10/2016 Pt Yud5341 Mod intensity - 2.0-3.0 04/10/2016 Pt Fqh0108 Hi intensity - 3.0-4.0 04/10/2016 Pt Ymd0252 PT 26.4 seconds 03/10/2016 Pt Wrq4088 INR 2.6 03/10/2016 Pt Qxg9847 Low Intensity - 1.5-2.0 03/10/2016 Pt Pxt0293 Mod intensity - 2.0-3.0 03/10/2016 Pt Vct3267 Hi intensity - 3.0-4.0 03/10/2016 Pt Hmx1664 PT 24.9 seconds 03/06/2016 Pt Hsn8188 INR 2.4 03/06/2016 Pt Tqj3476 Low Intensity - 1.5-2.0 03/06/2016 Pt Iln9552 Mod intensity - 2.0-3.0 03/06/2016 Pt Crr6198 Hi intensity - 3.0-4.0 03/06/2016 Pt Hqm3541 PT 21.9 seconds 02/25/2016 Pt Ipk4406 INR 2.0 02/25/2016 Pt Ubb2528 Low Intensity - 1.5-2.0 02/25/2016 Pt Iqh4049 Mod intensity - 2.0-3.0 02/25/2016 Pt Fgd3875 Hi intensity - 3.0-4.0 02/25/2016 Pt Iel9136 PT 21.8 seconds 02/21/2016 Pt Xyk7648 INR 2.0 02/21/2016 Pt Vhi9686 Low Intensity - 1.5-2.0 02/21/2016 Pt Wpl9774 Mod intensity - 2.0-3.0 02/21/2016 Pt Njg7131 Hi intensity - 3.0-4.0 02/21/2016 Culture Urine [id number] URI NE CULTURE SEE NOTES 02/20/2016 Culture Urine [id number] Con tinued Results 02/20/2016 Urine Culture Ucult [...] 91.8 fl 02/14/2016 Cbc With Differential Ord2 Dolores% 9.3 % 02/14/2016 Cbc With Differential Ord2 [...] 2.55 K/ul 02/14/2016 Cbc With Differential Ord2 Dolores ABS# 0.8 K/ul 02/14/2016 Cbc With Differential Ord2 Eos ABS# 0.4 K/ul 02/14/2016 Cbc With Differential Ord2 Baso ABS# 0.1 K/ul 02/14/2016 Tsh Ord6 hTSH II 0.80 uIU/mL 02/14/2016 Pt Jcl5006 PT 27.1 seconds 02/14/2016 Pt Jyl4780 INR 2.7 02/14/2016 Pt Yxh0594 Low Intensity - 1.5-2.0 02/14/2016 Pt Tsb1848 Mod intensity - 2.0-3.0 02/14/2016 Pt Rut0897 Hi intensity - 3.0-4.0 02/14/2016 Free T4 Dot702 FREE T4 1.87 ng/dL 02/14/2016 Comp Metabolic Kli502 NA 139 mEq/L 02/14/2016 Comp Metabolic Bli021 K 3.8 mEq/L 02/14/2016 Comp Metabolic Jsc882 CL 103 mEq/L 02/14/2016 Comp Metabolic Com726 CO2 27.0 mEq/L 02/14/2016 Comp Metabolic Cro883 AN ION GAP 13 02/14/2016 Comp Metabolic Jlk215 GL UCOSE 91 mg/dL 02/14/2016 Comp Metabolic Wfd392 Cr eat 1.0 mg/dL 02/14/2016 Comp Metabolic Hyh412 eG FR 58 ml/min/1.73m2 02/13 Comp Metabolic Ubp080 BUN 16 mg/dL 02/14/2016 Comp Metabolic Ank051 B/ C Ratio 16.2 Ratio 02/14/2016 Comp Metabolic Pdo407 CA LCIUM 9.0 mg/dL 02/14/2016 Comp Metabolic Aut984 AL K PHOS 88 U/L 02/14/2016 Comp Metabolic Mge975 T(SGOT) 17 U/L 02/14/2016 Comp Metabolic Cpc220 AL T(SGPT) 12 U/L 02/14/2016 Comp Metabolic Cgb919 BI LI T 0.6 mg/dL 02/14/2016 Comp Metabolic Zbj923 AL BUMIN 3.2 g/dL 02/14/2016 Comp Metabolic Dvr466 TP RO 5.8 g/dL 02/14/2016 Comp Metabolic Otx420 GL OB 2.6 g/dL 02/14/2016 Comp Metabolic Axi958 A/ G Ratio 1.3 Ratio 02/14/2016 Comp Metabolic Pbz843 Os mo 278 mOsmo 02/14/2016 Pt Oel0297 PT 34.6 seconds 02/06/2016 Pt Ofo2047 INR 3.7 02/06/2016 Pt Fzh4165 Low Intensity - 1.5-2.0 02/06/2016 Pt Gqd0668 Mod intensity - 2.0-3.0 02/06/2016 Pt Goc4802 Hi intensity - 3.0-4.0 02/06/2016 Pt Sjx1157 PT 33.3 seconds 01/23/2016 Pt Cle7077 INR 3.5 01/23/2016 Pt Mpo2506 Low Intensity - 1.5-2.0 01/23/2016 Pt Kzh7879 Mod intensity - 2.0-3.0 01/23/2016 Pt Dpt5367 Hi intensity - 3.0-4.0 01/23/2016 Pt Lvm7097 PT 30.5 seconds 12/31/2015 Pt Qjd3280 INR 3.2 12/31/2015 Pt Mpa3620 Low Intensity - 1.5-2.0 12/31/2015 Pt Aee1145 Mod intensity - 2.0-3.0 12/31/2015 Pt Fuv3671 Hi intensity - 3.0-4.0 12/31/2015 Pt Ekh0635 PT 35.6 seconds 12/25/2015 Pt Dac8152 INR 3.9 12/25/2015 Pt Lby2793 Low Intensity - 1.5-2.0 12/25/2015 Pt Fot3891 Mod intensity - 2.0-3.0 12/25/2015 Pt Ioa1148 Hi intensity - 3.0-4.0 12/25/2015 Pt Ohy5223 PT 30.8 seconds 11/21/2015 Pt Lzg3292 INR 3.2 11/21/2015 Pt Jiz3495 Low Intensity - 1.5-2.0 11/21/2015 Pt Pdw8301 Mod intensity - 2.0-3.0 11/21/2015 Pt Hfk9725 Hi intensity - 3.0-4.0 11/21/2015 Uric Acid [...] 30.0 pg 11/20/2015 Cbc With Differential Ord2 Dolores% 8.1 % 11/20/2015 Cbc With Differential Ord2 [...] 2.51 K/ul 11/20/2015 Cbc With Differential Ord2 Dolores ABS# 0.9 K/ul 11/20/2015 Cbc With Differential Ord2 Eos ABS# 0.3 K/ul 11/20/2015 Cbc With Differential Ord2 Baso ABS# 0.0 K/ul 11/20/2015 Comp Metabolic Rhg787 NA 137 mEq/L 10/22/2015 Comp Metabolic Mrp578 K 3.9 mEq/L 10/22/2015 Comp Metabolic Zsb769 CL 100 mEq/L 10/22/2015 Comp Metabolic Oyx630 CO2 31.0 mEq/L 10/22/2015 Comp Metabolic Jea878 AN ION GAP 10 10/22/2015 Comp Metabolic Oai923 GL UCOSE 94 mg/dL 10/22/2015 Comp Metabolic Ojz446 Cr eat 1.0 mg/dL 10/22/2015 Comp Metabolic Ezq324 eG FR 55 ml/min/1.73m2 10/21 Comp Metabolic Wqd977 BUN 19 mg/dL 10/22/2015 Comp Metabolic Kbj473 B/ C Ratio 18.3 Ratio 10/22/2015 Comp Metabolic Rzo999 CA LCIUM 8.8 mg/dL 10/22/2015 Comp Metabolic Kfq219 AL K PHOS 83 U/L 10/22/2015 Comp Metabolic Tqu343 T(SGOT) 15 U/L 10/22/2015 Comp Metabolic Scd000 AL T(SGPT) 13 U/L 10/22/2015 Comp Metabolic Rtr957 BI LI T 0.9 mg/dL 10/22/2015 Comp Metabolic Jly346 AL BUMIN 2.8 g/dL 10/22/2015 Comp Metabolic Hat405 TP RO 5.4 g/dL 10/22/2015 Comp Metabolic Xkj048 GL OB 2.6 g/dL 10/22/2015 Comp Metabolic Uas504 A/ G Ratio 1.1 Ratio 10/22/2015 Comp Metabolic Qro022 Os mo 276 mOsmo 10/22/2015 Bili D Ord93 BILI D 0.1 mg/dL 10/22/2015 Bili D Ord93 BILI I 0.8 mg/dL 10/22/2015 Pt Pfw9125 PT 22.8 seconds 10/22/2015 Pt Pub3859 INR 2.1 10/22/2015 Pt Bkg7970 Low Intensity - 1.5-2.0 10/22/2015 Pt Qov9496 Mod intensity - 2.0-3.0 10/22/2015 Pt Lza2995 Hi intensity - 3.0-4.0 10/22/2015 Pt Gob0553 PT 28.0 seconds 09/16/2015 Pt Mmg2257 INR 2.7 09/16/2015 Pt Ehl1192 Low Intensity - 1.5-2.0 09/16/2015 Pt Ese5262 Mod intensity - 2.0-3.0 09/16/2015 Pt Rdq2847 Hi intensity - 3.0-4.0 09/16/2015 Tsh Ord6 hTSH II 1.40 uIU/mL 09/16/2015 Free T4 Hpd361 FREE T4 1.73 ng/dL 09/16/2015 Lipid Ord30 CHOL 169 mg/dL 09/16/2015 Lipid Ord30 HDL 66.0 mg/dl 09/16/2015 Lipid Ord30 TRIG 78 mg/dL 09/16/2015 Lipid Ord30 LDL 87 mg/dL 09/16/2015 Lipid Ord30 C/HDL 2.6 Ratio 09/16/2015 Pt Jgi4705 PT 26.6 seconds 08/21/2015 Pt Myk2089 INR 2.6 08/21/2015 Pt Ojh7780 Low Intensity - 1.5-2.0 08/21/2015 Pt Lwe0660 Mod intensity - 2.0-3.0 08/21/2015 Pt Pqc1463 Hi intensity - 3.0-4.0 08/21/2015 Comp Metabolic Mzu989 NA 141 mEq/L 08/08/2015 Comp Metabolic Qgu996 K 3.3 mEq/L 08/08/2015 Comp Metabolic Evl401 CL 102 mEq/L 08/08/2015 Comp Metabolic Zgh687 CO2 31.0 mEq/L 08/08/2015 Comp Metabolic Mtl320 AN ION GAP 11 08/08/2015 Comp Metabolic Nle429 GL UCOSE 83 mg/dL 08/08/2015 Comp Metabolic Rof401 Cr eat 1.0 mg/dL 08/08/2015 Comp Metabolic Lfg331 eG FR 55 ml/min/1.73m2 08/08 Comp Metabolic Bew443 BUN 19 mg/dL 08/08/2015 Comp Metabolic Wru070 B/ C Ratio 18.3 Ratio 08/08/2015 Comp Metabolic Cvg557 CA LCIUM 8.9 mg/dL 08/08/2015 Comp Metabolic Xrx328 AL K PHOS 84 U/L 08/08/2015 Comp Metabolic Pyw720 T(SGOT) 20 U/L 08/08/2015 Comp Metabolic Nxm680 AL T(SGPT) 18 U/L 08/08/2015 Comp Metabolic Doe988 BI LI T 0.6 mg/dL 08/08/2015 Comp Metabolic Xfj037 AL BUMIN 3.3 g/dL 08/08/2015 Comp Metabolic Tfj739 TP RO 5.9 g/dL 08/08/2015 Comp Metabolic Riu056 GL OB 2.6 g/dL 08/08/2015 Comp Metabolic Gla054 A/ G Ratio 1.3 Ratio 08/08/2015 Comp Metabolic Kdl067 Os mo 283 mOsmo 08/08/2015 Cbc With [...] 30.0 pg 08/08/2015 Cbc With Differential Ord2 Dolores% 8.2 % 08/08/2015 Cbc With Differential Ord2 [...] 2.90 K/ul 08/08/2015 Cbc With Differential Ord2 Dolores ABS# 0.9 K/ul 08/08/2015 Cbc With Differential [...] Ord93 BILI I 0.5 mg/dL 08/08/2015 Pt Rog0732 PT 31.8 seconds 08/05/2015 Pt Syr5484 INR 3.2 08/05/2015 Pt Asl7217 Low Intensity - 1.5-2.0 08/05/2015 Pt Doi4683 Mod intensity - 2.0-3.0 08/05/2015 Pt Urn2516 Hi intensity - 3.0-4.0 08/05/2015 Pt Fdb0157 PT 27.4 seconds 06/27/2015 Pt Yyh2311 INR 2.6 06/27/2015 Pt Xku9805 Low Intensity - 1.5-2.0 06/27/2015 Pt Fkn5753 Mod intensity - 2.0-3.0 06/27/2015 Pt Paw4505 Hi intensity - 3.0-4.0 06/27/2015 Tsh Ord6 [...] Ord2 RDW 15.1 % 05/31/2015 Free T4 Iou437 FREE T4 1.89 ng/dL 05/31/2015 Comp Metabolic Xne786 NA 140 mEq/L 05/31/2015 Comp Metabolic Ybf752 K 3.3 mEq/L 05/31/2015 Comp Metabolic Pli496 CL 99 mEq/L 05/31/2015 Comp Metabolic Glg479 CO2 30.0 mEq/L 05/31/2015 Comp Metabolic Rwg968 AN ION GAP 14 05/31/2015 Comp Metabolic Xqq071 GL UCOSE 70 mg/dL 05/31/2015 Comp Metabolic Xuf998 Cr eat 1.0 mg/dL 05/31/2015 Comp Metabolic Yjf616 eG FR 55 ml/min/1.73m2 05/31 Comp Metabolic Qct110 BUN 23 mg/dL 05/31/2015 Comp Metabolic Yoj434 B/ C Ratio 22.1 Ratio 05/31/2015 Comp Metabolic Ese463 CA LCIUM 8.9 mg/dL 05/31/2015 Comp Metabolic Rvs275 AL K PHOS 86 U/L 05/31/2015 Comp Metabolic Lhy444 T(SGOT) 28 U/L 05/31/2015 Comp Metabolic Lxz852 AL T(SGPT) 30 U/L 05/31/2015 Comp Metabolic Tyk264 BI LI T 0.4 mg/dL 05/31/2015 Comp Metabolic Ltb868 AL BUMIN 3.3 g/dL 05/31/2015 Comp Metabolic Wlo668 TP RO 6.0 g/dL 05/31/2015 Comp Metabolic Exx880 GL OB 2.7 g/dL 05/31/2015 Comp Metabolic Rsj628 A/ G Ratio 1.2 Ratio 05/31/2015 Comp Metabolic Icq486 Os mo 282 mOsmo 05/31/2015 Pt Wxr6074 PT 23.3 seconds 04/15/2015 Pt Uwn8538 INR 2.2 04/15/2015 Pt Ndy8031 Low Intensity - 1.5-2.0 04/15/2015 Pt Jei4708 Mod intensity - 2.0-3.0 04/15/2015 Pt Iwt2984 Hi intensity - 3.0-4.0 04/15/2015 Pt Edr1929 PT 19.5 seconds 04/04/2015 Pt Lnw7782 INR 1.7 04/04/2015 Pt Loj1492 Low Intensity - 1.5-2.0 04/04/2015 Pt Iza4325 Mod intensity - 2.0-3.0 04/04/2015 Pt Cwc5584 Hi intensity - 3.0-4.0 04/04/2015 Pt Eqb1317 PT 39.8 seconds 04/01/2015 Pt Sjl4483 INR 4.3 04/01/2015 Pt Nyg6937 Low Intensity - 1.5-2.0 04/01/2015 Pt Qyg6794 Mod intensity - 2.0-3.0 04/01/2015 Pt Qeh6293 Hi intensity - 3.0-4.0 04/01/2015 Metabolic Ord15 [...] Metabolic Ord15 CALCIUM 8.7 mg/dL 02/28/2015 Pt Yvc6894 PT 31.4 seconds 02/28/2015 Pt Ayi0760 INR 3.2 02/28/2015 Pt Qlq3264 Low Intensity - 1.5-2.0 02/28/2015 Pt Eoe0597 Mod intensity - 2.0-3.0 02/28/2015 Pt Ymc1023 Hi intensity - 3.0-4.0 02/28/2015 Pt Ife6854 PT 23.2 seconds 01/18/2015 Pt Vwh6957 INR 2.1 01/18/2015 Pt Xkt3036 Low Intensity - 1.5-2.0 01/18/2015 Pt Aho0915 Mod intensity - 2.0-3.0 01/18/2015 Pt Sxl7064 Hi intensity - 3.0-4.0 01/18/2015 Pt Lub4379 PT 18.2 seconds 01/10/2015 Pt Mbk0244 INR 1.6 01/10/2015 Pt Heb3379 Low Intensity - 1.5-2.0 01/10/2015 Pt Jis1763 Mod intensity - 2.0-3.0 01/10/2015 Pt Vwp1381 Hi intensity - 3.0-4.0 01/10/2015 Review of [...] 03/24/2018 ADMIN PNEUMOCOCCAL V ACCINE SNOMED CT: 20415982 CPT-4: G0009 03/24/2018 FLU VACC PRSV FREE I NC ANTIG Formatting Model/CDA Sections, Assigned to/Dorothea Tan CPT-4: 66566Ppqdnem 03/24/2018 Pneumococcal Polysac charide Vaccine, 23-Valent, Ad CPT-4: 23663 03/24/2018 TRIAMCINOLONE ACET I [place] NOS CPT-4: J3301 06/15/2017 THER/PROPH/DIAG INJ SC/IM CPT-4: 84814 06/15/2017 ADMIN PNEUMOCOCCAL V ACCINE SNOMED CT: 41057763 CPT-4: G0009 03/16/2017 ADMIN INFLUENZA VIRU S VAC CPT-4: G0008 03/16/2017 FLU VAC NO PRSV 4 VA L 3 YRS+ CPT-4: 63323 03/16/2017 PNEUMOCOCCAL VACC [address]: 37283869 CPT-4: 69623 03/16/2017 URINALYSIS NONAUTO W /O SCOPE CPT-4: 17891 08/26/2016 THER/PROPH/DIAG INJ SC/IM CPT-4: 11830 07/22/2016 TRIAMCINOLONE ACET I [place] NOS CPT-4: J3301 07/22/2016 ROCEPHIN, PER 250 MG CPT-4: J0696 07/22/2016 TRIAMCINOLONE ACET I [place] NOS CPT-4: J3301 02/05/2015 Vital Signs Date Vital 07/11/2018 Blood Pressure 1: 102/68 Code: 8480-6 BMI: 34.5 Code: 79563-9 Heart Rate 1: 101 bpm Height: 5'7" SpO2: 98% Weight: 220 lbs 03/24/2018 Blood Pressure 1: 130/72 Code: 8480-6 BMI: 33.4 Code: 60744-9 Heart Rate 1: 82 bpm Height: 5'7" SpO2: 93% Weight: 213 lbs 11/18/2017 Blood Pressure 1: 128/70 Code: 8480-6 BMI: 33.6 Code: 91521-6 Heart Rate 1: 98 bpm Height: 5'7" SpO2: 97% Weight: 214 lbs 8 oz 09/30/2017 Blood Pressure 1: 100/50 Code: 8480-6 BMI: 34.0 Code: 54609-5 Heart Rate 1: 66 bpm Height: 5'7" SpO2: 96% Weight: 217 lbs 08/17/2017 Blood Pressure 1: 104/60 Code: 8480-6 BMI: 33.7 Code: 37881-3 Heart Rate 1: 99 bpm Height: 5'7" SpO2: 97% Weight: 215 lbs 06/15/2017 Blood Pressure 1: 120/64 Code: 8480-6 BMI: 33.5 Code: 41620-7 Heart Rate 1: 91 bpm Height: 5'7" SpO2: 94% Weight: 214 lbs 04/01/2017 Blood Pressure 1: 110/68 Code: 8480-6 BMI: 154.4 Code: 95808-2 Heart Rate 1: 66 bpm Height: 2'7" SpO2: 95% Weight: 211 lbs 03/16/2017 Blood Pressure 1: 130/72 Code: 8480-6 BMI: 33.0 Code: 64408-9 Heart Rate 1: 95 bpm Height: 5'7" SpO2: 97% Weight: 211 lbs 02/09/2017 Blood Pressure 1: 120/70 Code: 8480-6 BMI: 32.9 Code: 66073-8 Heart Rate 1: 78 bpm Height: 5'7" SpO2: 96% Weight: 210 lbs 10/13/2016 Blood Pressure 1: 118/76 Code: 8480-6 BMI: 32.6 Code: 65294-8 Heart Rate 1: 97 bpm Height: 5'7" SpO2: 98% Weight: 208 lbs 07/31/2016 Blood Pressure 1: 110/64 Code: 8480-6 BMI: 32.1 Code: 63472-9 Heart Rate 1: 79 bpm Height: 5'7" SpO2: 94% Weight: 205 lbs 07/22/2016 Blood Pressure 1: 108/74 Code: 8480-6 BMI: 32.1 Code: 50654-2 Heart Rate 1: 71 bpm Height: 5'7" SpO2: 97% Temperature: 36.9 (C ) / 98.4 (F) Weight: 205 lbs 05/01/2016 Blood Pressure 1: 120/72 Code: 8480-6 BMI: 32.7 Code: 39085-4 Heart Rate 1: 75 bpm Height: 5'7" SpO2: 94% Weight: 209 lbs 04/06/2016 Blood Pressure 1: 106/62 Code: 8480-6 BMI: 32.7 Code: 92162-0 Heart Rate 1: 83 bpm Height: 5'7" SpO2: 97% Weight: 209 lbs 03/06/2016 Blood Pressure 1: 112/68 Code: 8480-6 BMI: 32.7 Code: 86841-0 Heart Rate 1: 90 bpm Height: 5'7" SpO2: 97% Weight: 209 lbs 03/03/2016 Blood Pressure 1: 120/62 Code: 8480-6 BMI: 32.7 Code: 79057-7 Heart Rate 1: 92 bpm Height: 5'7" SpO2: 98% Weight: 209 lbs 02/07/2016 Blood Pressure 1: 110/64 Code: 8480-6 BMI: 32.7 Code: 11112-7 Heart Rate 1: 87 bpm Height: 5'7" SpO2: 97% Weight: 209 lbs 12/13/2015 Blood Pressure 1: 110/64 Code: 8480-6 BMI: 33.5 Code: 12721-9 Heart Rate 1: 90 bpm Height: 5'7" SpO2: 97% Weight: 214 lbs 12/03/2015 Blood Pressure 1: 132/76 Code: 8480-6 BMI: 33.4 Code: 48017-6 Heart Rate 1: 82 bpm Height: 5'7" SpO2: 99% Weight: 213 lbs 11/20/2015 Blood Pressure 1: 108/68 Code: 8480-6 BMI: 32.4 Code: 86789-2 Heart Rate 1: 77 bpm Height: 5'7" SpO2: 97% Weight: 207 lbs 09/17/2015 Blood Pressure 1: 122/76 Code: 8480-6 BMI: 33.0 Code: 79663-2 Heart Rate 1: 91 bpm Height: 5'7" SpO2: 97% Weight: 211 lbs 05/31/2015 Blood Pressure 1: 128/82 Code: 8480-6 BMI: 33.4 Code: 35867-7 Heart Rate 1: 98 bpm Height: 5'7" SpO2: 99% Weight: 213 lbs 02/05/2015 Blood Pressure 1: 128/80 Code: 8480-6 BMI: 32.6 Code: 49221-3 Heart Rate 1: 86 bpm Height: 5'7" SpO2: 97% Weight: 208 lbs 11/20/2014 Blood Pressure 1: 128/90 Code: 8480-6 BMI: 30.9 Code: 25748-8 Heart Rate 1: 94 bpm Height: 5'7" [...] ongoing 11/20/2015 None Hospital Follow Up _ [facility] er: fall 09/17/2015 None Hospital [...] Encounters Encounter Performer Loca tion Codes Date ([id number]) [id number] EST. P ATIENT, LEVEL IV Diagnosis: Atrophy of thyroid (acquired)[ICD10: E03.4] Diagnosis: Essential (primary) hypertension[ICD10: I10] Diagnosis: Other fatigue[ICD10: R53.83] Diagnosis: Localized edema[ICD10: R60.0] Valerie Pisano MD, [facility] CPT-4: 29589 07/11/2018 ([id number]) 27548 EST. P ATIENT, LEVEL IV Diagnosis: Essential (primary) hypertension[ICD10: I10] Diagnosis: Atrophy of thyroid (acquired)[ICD10: E03.4] Diagnosis: Chronic atrial fibrillation[ICD10: I48.2] Valerie Pisano MD, C CPT-4: 08232 03/24/2018 ([id number]) 84107 EST. P ATIENT, LEVEL IV Diagnosis: Essential (primary) hypertension[ICD10: I10] Diagnosis: Atrophy of thyroid (acquired)[ICD10: E03.4] Diagnosis: Chronic atrial fibrillation[ICD10: I48.2] Valerie Pisano MD, C CPT-4: 27982 11/18/2017 71725 EST. PATIENT, LEVEL IV Diagnosis: Localized edema[ICD10: R60.0] Roxie Pisano MD, [facility] CPT-4: 98520 09/30/2017 ([id number]) 78357 EST. P ATIENT, LEVEL III Diagnosis: Essential (primary) hypertension[ICD10: I10] Valerie Pisnao MD, C CPT-4: 81034 08/17/2017 ([id number]) 45507 EST. P ATIENT, LEVEL IV Diagnosis: Essential (primary) hypertension[ICD10: I10] Diagnosis: Atrophy of thyroid (acquired)[ICD10: E03.4] Diagnosis: Chronic atrial fibrillation[ICD10: I48.2] Diagnosis: Cervicalgia[ICD10: M54.2] Diagnosis: Other muscle spasm[ICD10: M62.838] Valerie Pisano MD, [facility] CPT- 4: 11467 06/15/2017 71381 EST. PATIENT, LEVEL III Diagnosis: Laceration without foreign body of other finger without damage to nail, initial encounter[ICD10: S61.218A] Roxie Pisano MD, [facility] CPT-4: 98328 04/01/2017 ([id number]) 75589 EST. 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 PATIENT, LEVEL III Diagnosis: Other acute sinusitis[ICD10: J01.80] Diagnosis: Other allergic rhinitis[ICD10: J30.89] Roxie Pisano MD, [facility] CPT-4: 58858 07/31/2016 ([id number]) 42957 EST. P ATIENT, LEVEL III Diagnosis: Acute recurrent maxillary sinusitis[ICD10: J01.01] Valerie Pisaon MD, [facility] CPT-4: 71481 07/22/2016 68176 EST. PATIENT, LEVEL IV Diagnosis: Essential (primary) hypertension[ICD10: I10] Diagnosis: Other allergic rhinitis[ICD10: J30.89] Diagnosis: Localized edema[ICD10: R60.0] Roxie Pisano MD, [facility] CPT-4: 32954 05/01/2016 23815 EST. PATIENT, LEVEL III Diagnosis: Cellulitis of left lower limb[ICD10: L03.116] Diagnosis: Localized edema[ICD10: R60.0] Roxie Pisano MD, [facility] CPT-4: 97578 04/06/2016 ([id number]) Miscellaneou s no charge Diagnosis: Cellulitis of left lower limb[ICD10: L03.116] Diagnosis: Localized edema[ICD10: R60.0] Roxie Pisano MD, [facility] CPT-4: 03603 03/10/2016 ([id number]) Miscellaneou s no charge Diagnosis: Cellulitis of left lower limb[ICD10: L03.116] Roxie Pisano MD, [facility] CPT-4: 37460 03/06/2016 95418 EST. PATIENT, LEVEL IV Diagnosis: Cellulitis of left lower limb[ICD10: L03.116] Diagnosis: Localized edema[ICD10: R60.0] Roxie Pisano MD, [facility] CPT-4: 58822 03/03/2016 ([id number]) 58275 EST. 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 P ATIENT, LEVEL III Diagnosis: Iliotibial band syndrome, right leg[ICD10: M76.31] Diagnosis: Localized edema[ICD10: R60.0] Brielle Pisano MD, [facility] CPT- 4: 26484 12/13/2015 ([id number]) 17712 EST. P ATIENT, LEVEL III Diagnosis: Localized edema[ICD10: R60.0] Diagnosis: Essential (primary) hypertension[ICD10: I10] Brielle Pisano MD, [facility] CPT-4: 42580 12/03/2015 ([id number]) 49538 EST. 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 P ATIENT, LEVEL IV Diagnosis: Localized edema[ICD10: R60.0] Diagnosis: Other specified hypothyroidism[ICD10: E03.8] Diagnosis: Essential (primary) hypertension[ICD10: I10] [facility] CPT-4: 31650 05/31/2015 ([id number]) 55729 EST. P ATIENT, LEVEL III Diagnosis: ALLERGIC RHINITIS[ICD9: 477.9] Diagnosis: ESSENTIAL HYPERTENSION[ICD9: 401.9] Brielle Pisano MD, [facility] CPT-4: 13065 02/05/2015 ([id number]) [facility] - LEVEL 4 Diagnosis: ESSENTIAL HYPERTENSION[ICD9: 401.9] Diagnosis: HYPOTHYROIDISM[ICD9: 244.9] Diagnosis: ACTINIC KERATOSIS[ICD9: 702.0] Valerie Pisano MD, [facility] CPT-4: 95057 11/20/2014 Plan of Care Planned Activity Notes C odes Status Date Appointment: Brielle Cavazos WPtel: [phone] [phone] (15 min) Moderate 07/12/2018 Visit Plan: [...] twice daily. 07/11/2018 Appointment: [id number] (15 min) Moderate 07/11/2018 Patient Education: Patient [...] given today. 03/24/2018 Appointment: Valerie Pisano WPtel: [address] [place], [place] [phone] (15 min) Moderate 03/24/2018 Patient Education: [...] of control. 11/18/2017 Appointment: Valerie Pisano WPtel: [address] [place], [place] [id number] (15 min) Moderate 11/18/2017 Patient Education: Patient Medication Summary Completed 11/18/2017 Referral: [facility] WPtel: [address] [facility] Pt notified at appointment Appointment [...] Boots 09/30/2017 App[facility]ment: [phone] [facility] (30 min) Complex 09/30/2017 Patient Education: Patient Medication Summary Completed 09/30/2017 Care Plan: Referral Order SNOMED-CT : [id number] Pending 09/30/2017 Visit Plan: Hypertension - well [...] time. 08/17/2017 Appointment: [phone] (15 min) Moderate 08/17/2017 Patient Education: Patient [...] muscles. allergies - kenalog 40mg im bristol [employer] squibb - lot # [id number] expires september 2018 06/15/2017 Visit Plan: Hypertension [...] muscles. 06/15/2017 Appointment: [facility]is[phone] [facility] [place] (15 min) Moderate 06/15/2017 Patient Education: Patient Medication Summary Completed 06/15/2017 Care Plan: Referral Order SNOMED-CT : [id number] Pending 06/15/2017 Appointment: Nurse Visit 04/05/2017 Appointment: [...] booster. 04/01/2017 Appointment: [phone] [facility] ([facility] min) Moderate 04/01/2017 Patient Education: [...] [phone] [place] (15 min) Moderate 03/16/2017 Patient Education: Patient [...] [phone] [place] (15 min) Moderate 02/09/2017 Patient Education: Patient [...] nystatin 10/13/2016 Appointment: Valerie Pisano WPtel: [phone] [facility] (15 min) Moderate 10/13/2016 Patient Education: Patient Medication Summary Completed 10/13/2016 Patient Education: Obesity Completed 10/13/2016 Patient Education: Hypertension Completed 10/13/2016 Care Plan: Urine Culture Pending 08/31/2016 Appointment: Roxie Cazares WPtel: [phone] [facility] Lab Draw 08/27/2016 Appointment: Nurse Visit [...] spray. 07/31/2016 Appointment: Brielle Cavazos WPtel: [phone] [phone] (30 min) Complex 07/31/2016 Patient Education: Patient Medication Summary Completed 07/31/2016 Patient Education: Obesity Completed 07/31/2016 Visit Plan: Sinusitis - Pt has acut e infection - pain in face, maxillary region, Pt informed to use decongestant, RX given to patient, sinus rinses also recommended. Call if symptoms do not show improvement. 07/22/2016 Appointment: Val[facility] Pisano [facility]el[phone] [facility] [place] (15 min) Moderate 07/22/2016 Patient Education: Patient [...] edema. 05/01/2016 Appointment: [facility] [phone] [phone] (30 min) Complex 05/01/2016 Patient Education: [...] peripheral edema. 04/06/2016 Appointment: Roxie Cazares WPtel: [facility] (30 min) Complex 04/06/2016 Patient Education: Patient Medication Summary Completed 04/06/2016 Patient Education: Obesity Completed 04/06/2016 Visit Plan: left foot - improved - pt finished with antibiotics - continue to monitor - notify clinic with any concerns. Repeat INR today. 03/10/2016 Appointment: Brielle Cavazos WPtel: [phone] (30 min) Complex 03/10/2016 Patient Education: Patient Medication Summary Completed 03/10/2016 Visit Plan: Cellulitis - continue w ith oral antibiotics as previously directed, return to clinic as previously directed, call for acute change in symptoms, worsening redness, warmth, discharge. 03/06/2016 Appointment: Brielle Cavazos WPtel: [phone] (15 min) Moderate 03/06/2016 Patient Education: Patient Medication Summary Completed 03/06/2016 Patient Education: Obesity Completed 03/06/2016 Visit Plan: Cellulitis - continue w ith oral antibiotics as previously directed, return to clinic as previously directed, call for acute change in symptoms, worsening redness, warmth, discharge. 03/03/2016 Appointment: Brielle Cavazos WPtel: [phone] (15 min) Moderate 03/03/2016 Patient Education: [...] 3.5. 02/07/2016 Appointment: Brielle Cavazos WPtel: [phone] (30 min) Complex 02/07/2016 Patient Education: Patient Medication Summary Completed 02/07/2016 Patient Education: Obesity Completed 02/07/2016 Patient Education: Hypertension Completed 02/07/2016 Appointment: Brielle Cavazos WPtel: [facility] [place] [phone] (30 min) Complex 02/04/2016 Visit Plan: Iliotibial [...] peripheral edema. 12/13/2015 Appointment: Brielle Cavazos WPtel: [facility] (15 min) Moderate 12/13/2015 Patient Education: [...] home. 12/03/2015 Appointment: Brielle Cavazos WPtel: [phone] [place] [phone] (30 min) Complex 12/03/2015 Patient Education: Patient [...] Hypertension Completed 02/05/2015 Appointment: Valerie Pisano WPtel: [id number] (15 min) Moderate 01/29/2015 Visit Plan: Hypertension [...] [facility]el[phone] [id number] [place] New Patient 11/20/2014 Patient Education: Patient Medication Summary Completed 11/20/2014 Patient Education: Hypertension Completed 11/20/2014 Patient Education: Patient Medication Summary Completed 10/19/2014 Referral: [facility] WPtel: Referral Appointment Requested Referral: [facility] Ref[facility] Appointment Confirmed Instructions Comment . Sinusitis - Pt has [...] the office. get blood work one w [facility] before next appt - fasting labs [...] Wednesday. Pt given script for tetanus booster. CHECK LABS TODAY-WE WILL CALL YOU AFTER [...] muscles. allergies - kenalog 40mg im bristol [employer] - lot # [id number] expires september 2018 . Edema - pt [...] change in symptoms, worsening redness, warmth, discharge. 1 pill mon/wed/wed, 1/2 pill /th/sat/sun take - This is [...] in the nasal steroid allergy spray. . Cellulitis - daylin nue with oral [...] based on previous levels of control. . Allergies - chroni c - recommended [...]
--- OUTSIDE RECORDS SUMMARY | 2019-09-12 11:51 | XMS REPORT | CCD ---
Author Author Clara Pisano Organization [facility] Address [address] [place] [address] Phone Care Team Providers Care Senior Premium Auditor Name Role Phone PP Unavailable CCM Unavailable Summary Purpose Interface Exchange Insurance Providers Payer name Policy type / Coverage type Covered democrat ID Effective Begin Date Effective End Date WPS Medicare Part B Medicare Part B [id number] 2018 Unknown [employer] Medicare Part B [id number] 2018 Unknown Family history Sister Diagnosis Age At Onset defect Unknown Breast cancer Unknown Daughter Diagnosis Age At Onset Breast cancer Unknown Mother Diagnosis Age At Onset No Family Disease Entered N/A Social History Social History Element Codes Description Effective Dates Marital status Unknown M arried Lane 11/20/2014 Number of children Unknown 6 11/20/2014 Employment Unknown Retir ed 11/20/[address]: 3773687 Quit over 10 years ago 1963 11/20/2014 [...] ICD-9: 883.0 ICD-10: S61.218A Active 04/01/2017 Unknown [employer] (current) use of anticoagulants ICD-9: V58.61 [...] encounter ICD-9: 883.0 ICD-10: S61.218A 04/01/2017 Active [employer] (current) use of anticoagulants ICD-9: V58.61 [...] 11/19/2014 Active HYPOTHYROIDISM ICD-9: 244.9 11/19/2014 Active 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 ICD-9: V58.61 10/19/2014 Active Medications Medication Codes Instruc tions Start Date Stop Date Sta tus Fill Instructions meclizine 25 mg tablet RxNorm: 606623 1 Tablet(s) PO TID as needed Dizziness 07/22/2018 No Stop Date Active meclizine 25 mg tablet RxNorm: 761300 1 Tablet(s) PO TID as needed Dizziness 07/19/2018 07/21/2018 In active Coumadin 4 mg tablet RxNorm: 971420 1 Tablet(s) PO daily except 1.5 pills on WEDNESDAY AND Wednesday07/11/2018 07/05/2019 Active this is an update to her RX - she will let you know when she needs refill furosemide 40 mg tablet RxNorm: 313980 1 Tablet(s) BID take 1.5 tabs twice a da y x 7 days then 1 pill daily thereafter 07/11/2018 02/05/2019 Active warfarin 5 mg tablet RxNorm: 602485 Tablet(s) TAKE ONE TABLET BY MOUTH DAILY EXCEPT / TAKE 4 MG 04/06/2018 08/22/2019 Active diltiazem 60 mg tablet RxNorm: 586913 1/2 Tablet(s) PO QID 03/24/2018 No Stop Date Active levothyroxine 125 mc g tablet RxNorm: 568454 TAKE ONE TABLET BY MO UTH DAILY ON WEDNESDAY, WED, AND WEDNESDAY, AND 1/2 TABLET ON , , WED AND WEDNESDAY. TAKE ON AN EMPTY STOMACH 02/02/2018 07/31/2018 Active Coumadin 4 mg tablet RxNorm: 534291 TAKE ONE TABLET BY MOUTH DAILY ON AND Wednesday10/14/2017 07/10/2018 Inactive nystatin 100,000 uni t/gram topical cream RxNorm: 352287 1 Application TOP TID 08/17/2017 No Stop Date Active triamcinolone aceton sreekanth 0.025 % topical cream RxNorm: 2717061 1 Application TOP BI D 08/17/2017 No Stop Date Active Voltaren 1 % topical gel RxNorm: 658221 2 Gram(s) TOP TID luiz ly to shoulder and neck 08/17/2017 No Stop Date Active levothyroxine 125 mc g tablet RxNorm: 294751 1 Tablet(s) UD 1 pill wed/wed/wed, 1/2 pill //wed/wed take ON AN EMPTY STOMACH 08/05/2017 02/01/2018 Inactive Coumadin 4 mg tablet RxNorm: 399670 1 Tablet(s) PO Wed/07/29/2017 10/13/2017 Inactive warfarin 5 mg tablet RxNorm: 463199 TAKE 1 AND 1/2 TABLETS BY MOUTH ON AND WEDNESDAY. TAKE ONLY 1 TABLET BY MOUTH ALL OTHER DAYS OF THE WEEK 07/12/2017 04/05/2018 In active furosemide 40 mg tablet RxNorm: 290316 Tablet(s) BID TAKE ONE TABLET BY MOUTH D AILY 06/15/2017 07/10/2018 Inactive Voltaren 1 % topical gel RxNorm: 502436 2 Gram(s) TOP TID luiz ly to shoulder and neck 06/15/2017 08/16/2017 Inactive Keflex 500 mg capsule RxNorm: 130094 1 Capsule(s) PO TID 04/01/2017 04/07/2017 Inactive furosemide 40 mg tablet RxNorm: 459586 TAKE ONE TABLET BY MOUTH DAILY 03/18/2017 06/14/2017 In active Claritin-D 12 Hour 5 mg-120 mg tablet,extended release RxNorm: 0373527 1 Tablet(s) PO BID 03/16/2017 05/14/2017 Inactive Lipitor 20 mg tablet RxNorm: 137422 1 Tablet(s) PO daily 02/09/2017 03/10/2017 Inactive lisinopril 2.5 mg ta blet RxNorm: 141124 1 Tablet(s) PO daily 02/09/2017 03/10/2017 Inactive Nasonex 50 mcg/actua tion [place] RxNorm: 5813400 1 [place] NASAL BID 02/09/2017 09/06/2017 Inactive levothyroxine 125 mc g tablet RxNorm: 425667 1 Tablet(s) UD 1 pill wed/wed/wed, 1/2 pill //wed/sun take ON AN EMPTY STOMACH 02/09/2017 08/04/2017 Inactive fluorouracil 5 % top ical cream RxNorm: 652791 1 Application TOP BID 02/09/2017 02/18/2017 Inactive potassium chloride E R 20 mEq tablet,extended release RxNorm: 637218 Tablet(s) TAKE ONE TABLET BY MOUTH DAILY 02/08/2017 02/02/2018 Inactive warfarin 5 mg tablet RxNorm: 614768 TAKE 1 AND 1/2 TABLETS BY MOUTH ON AND WEDNESDAY. TAKE ONLY 1 TABLET BY MOUTH ALL OTHER DAYS OF THE WEEK 12/14/2016 05/30/2017 In active potassium chloride E R 20 mEq tablet,extended release RxNorm: 508016 TAKE ONE TABLET BY MOUTH DAILY 10/29/2016 01/26/2017 Inactive warfarin 5 mg tablet RxNorm: 129373 TAKE 1 AND 1/2 TABLETS BY MOUTH ON AND WEDNESDAY. TAKE ONLY 1 TABLET BY MOUTH ALL OTHER DAYS OF THE WEEK 10/27/2016 12/13/2016 In active nystatin 100,000 uni t/gram topical cream RxNorm: 057598 1 Application TOP TID 10/13/2016 08/16/2017 In active nitrofurantoin 50 mg capsule RxNorm: 562887 1 Capsule(s) PO BID 09/04/2016 09/03/2016 Inactive nitrofurantoin macro crystal 50 mg capsule RxNorm: 461172 1 Capsule(s) PO BID 09/04/2016 09/10/2016 In active Cipro 500 mg tablet RxNorm: 738280 1 Tablet(s) PO BID 08/26/2016 10/12/2016 Inactive Zyrtec 10 mg tablet RxNorm: 6947820 1 Tablet(s) PO daily 07/31/2016 08/29/2016 Inactive prednisone 20 mg tablet RxNorm: 043779 2 Tablet(s) PO daily 07/31/2016 08/02/2016 Inactive Kenalog 40 mg/mL zohra pension for injection RxNorm: 7310940 Milliliter(s) Inj 07/22/2016 07/22/2016 In active ceftriaxone 500 mg s olution for injection RxNorm: 1991458 Inj 07/22/2016 07/22/2016 Inactive Flonase Allergy Reli ef 50 mcg/actuation nasal spray,suspension RxNorm: 5144822 1 [place] NASAL BID 07/22/2016 08/20/2016 Inactive azithromycin 250 mg tablet RxNorm: 198536 2 Tablet(s) PO on day #1, then 1 pill daily x 4 days 07/22/2016 10/12/2016 Inactive warfarin 5 mg tablet RxNorm: 716908 TAKE 1 AND 1/2 TABLETS BY MOUTH ON AND WEDNESDAY. TAKE ONLY 1 TABLET BY MOUTH ALL OTHER DAYS OF THE WEEK 07/09/2016 09/30/2016 In active levothyroxine 125 mc g tablet RxNorm: 419730 Tablet(s) TAKE ONE TA BLET BY MOUTH DAILY ON AN EMPTY STOMACH 06/23/2016 02/08/2017 Inactive levothyroxine 125 mc g tablet RxNorm: 759126 TAKE ONE TABLET BY MO UTH DAILY ON AN EMPTY STOMACH 06/23/2016 06/22/2016 Inactive levothyroxine 125 mc g tablet RxNorm: 479461 TAKE ONE TABLET BY MO UTH DAILY ON AN EMPTY STOMACH 06/23/2016 08/04/2017 Inactive cetirizine 10 mg tablet RxNorm: 5842343 TAKE ONE TABLET BY MOUTH DAILY 06/16/2016 10/13/2016 In active furosemide 40 mg tablet RxNorm: 431045 Tablet(s) TAKE ONE TABLET BY MOUTH DAILY 06/05/2016 12/01/2016 In active cetirizine 10 mg tablet RxNorm: 3045030 1 Tablet(s) PO daily 05/01/2016 05/30/2016 Inactive Levaquin 250 mg tablet RxNorm: 042880 Tablet(s) PO 2 pills day one and 1 pill day 2-7 04/06/2016 07/21/2016 Inactive warfarin 5 mg tablet RxNorm: 133732 Tablet(s) 1/2 TABLETS BY MOUTH ON AND WEDNESDAY. TAKE ONLY 1 TABLET BY MOUTH ALL OTHER DAYS OF THE WEEK 03/18/2016 07/07/2016 In active triamcinolone aceton sreekanth 0.025 % topical cream RxNorm: 4505605 1 Application TOP BI D 03/10/2016 08/16/2017 In active potassium chloride E R 20 mEq tablet,extended release RxNorm: 054820 1 Tablet(s) PO daily 03/04/2016 06/01/2016 Inactive Levaquin 250 mg tablet RxNorm: 737594 Tablet(s) PO 2 pills day one and 1 pill day 2-7 03/04/2016 04/05/2016 Inactive Levaquin 250 mg tablet RxNorm: 807026 Tablet(s) PO 2 pills day one and 1 pill day 2-7 03/03/2016 03/03/2016 Inactive potassium chloride E R 20 mEq tablet,extended release RxNorm: 141367 1 Tablet(s) PO daily 03/03/2016 03/03/2016 Inactive Cipro 500 mg tablet RxNorm: 965942 1 Tablet(s) PO BID 02/20/2016 07/21/2016 Inactive Cipro 500 mg tablet RxNorm: 382651 1 Tablet(s) PO BID 02/20/2016 02/19/2016 Inactive furosemide 40 mg tablet RxNorm: 780158 TAKE ONE TABLET BY MOUTH DAILY 01/27/2016 01/26/2016 In active warfarin 5 mg tablet RxNorm: 002805 TAKE 1 AND 1/2 TABLETS BY MOUTH ON AND WEDNESDAY. TAKE ONLY 1 TABLET BY MOUTH ALL OTHER DAYS OF THE WEEK 01/27/2016 01/26/2016 In active furosemide 40 mg tablet RxNorm: 467875 TAKE ONE TABLET BY MOUTH DAILY 01/27/2016 06/04/2016 In active warfarin 5 mg tablet RxNorm: 411747 TAKE 1 AND 1/2 TABLETS BY MOUTH ON AND WEDNESDAY. TAKE ONLY 1 TABLET BY MOUTH ALL OTHER DAYS OF THE WEEK 01/27/2016 03/17/2016 In active potassium chloride E R 20 mEq tablet,extended release RxNorm: 616266 1 Tablet(s) PO daily 11/20/2015 03/02/2016 Inactive furosemide 40 mg tablet RxNorm: 962039 TAKE ONE TABLET BY MOUTH DAILY 11/12/2015 01/26/2016 In active Zovirax 5 % topical cream RxNorm: 431104 TOP QID 0 09/24/2015 09/23/2015 Inactive Zovirax 5 % topical cream RxNorm: 545186 TOP QID 0 09/24/2015 11/19/2015 Inactive nystatin 100,000 uni t/gram topical cream RxNorm: 741997 1 Application TOP TID 09/17/2015 10/12/2016 In active warfarin 5 mg tablet RxNorm: 868315 TAKE 1 AND 1/2 TABLETS BY MOUTH ON AND WEDNESDAY. TAKE ONLY 1 TABLET BY MOUTH ALL OTHER DAYS OF THE WEEK 08/19/2015 01/05/2016 In active loratadine 10 mg tablet RxNorm: 519799 1 Tablet(s) PO daily 07/30/2015 07/23/2016 Inactive loratadine 10 mg tablet RxNorm: 559157 1 Tablet(s) PO daily 07/30/2015 07/29/2015 Inactive furosemide 40 mg tablet RxNorm: 683476 TAKE ONE TABLET BY MOUTH DAILY 06/24/2015 11/11/2015 In active levothyroxine 125 mc g tablet RxNorm: 935629 1 Tablet(s) PO daily 05/31/2015 05/24/2016 Inactive furosemide 40 mg tablet RxNorm: 785194 1 Tablet(s) PO daily 04/05/2015 06/23/2015 Inactive warfarin 5 mg tablet RxNorm: 107038 TAKE 1 AND 1/2 TABLETS BY MOUTH ON AND WEDNESDAY. TAKE ONLY 1 TABLET BY MOUTH ALL OTHER DAYS OF THE WEEK 02/12/2015 07/29/2015 In active Flonase Allergy Reli ef 50 mcg/actuation nasal spray,suspension RxNorm: 2 [place] NASAL daily 02/05/2015 03/06/2015 Inactive Kenalog 40 mg/mL zohra pension for injection RxNorm: 8986660 Milliliter(s) Inj 02/05/2015 02/05/2015 In active warfarin 5 mg tablet RxNorm: 522622 Take 7.5mg (1 1/2 tablets) Wednesday and and 1 Tablet(s) PO (5mg) all other days 01/11/2015 02/09/2015 Inactive levothyroxine 125 mc g tablet RxNorm: 539650 1 Tablet(s) PO every other day 01/01/2015 05/30/2015 In active alternate with 150 levothyroxine 150 mc g tablet RxNorm: 448983 1 Tablet(s) PO every other day 01/01/2015 05/30/2015 In active alternate with 125 loratadine 10 mg tablet RxNorm: 708385 Tablet(s) PO as needed No Start Date Active Fish Oil 1,000 mg ca psule RxNorm: 1 Capsule(s) PO TID No Start Date Active magnesium 250 mg tablet RxNorm: 1 Tablet(s) PO daily No Start Date Active Vitamin D3 2,000 uni t tablet RxNorm: 217198 2 Tablet(s) PO daily No Start Date Active Fosamax 35 mg tablet RxNorm: 539685 1 Tablet(s) PO QW No Start Date Active levothyroxine 125 mc g tablet RxNorm: 163820 1 Tablet(s) PO daily No Start Date 12/31/2014 Inactive levothyroxine 150 mc g tablet RxNorm: 603515 1 Tablet(s) PO daily No Start Date 12/31/2014 Inactive diltiazem 60 mg tablet RxNorm: 370563 1 Tablet(s) PO QID No Start Date 03/23/2018 Inactive meclizine 25 mg tablet RxNorm: 916966 1 Tablet(s) PO TID as needed Dizziness No Start Date 07/18/2018 Inactive furosemide 40 mg tablet RxNorm: 537502 1 Tablet(s) PO daily No Start Date 04/04/2015 Inactive potassium chloride RxNorm: miscellaneous No Start Date 11/19/2015 Inactive Vitamin D2 oral RxNorm: 4018 oral No Start Date 05/31/2015 Inactive warfarin 5 mg tablet RxNorm: 686113 1 Tablet(s) PO daily No Start Date 01/10/2015 Inactive Coumadin 4 mg tablet RxNorm: 457612 1 Tablet(s) PO Wed/ No Start Date 07/28/2017 Inactive Medication Administered Medication Codes Instruc tions Start Date Status ceftriaxone 500 mg solution for injection RxNorm: 1474725 07/22/2016 No longer A ctive Kenalog 40 mg/mL suspension for injection RxNorm: 6906047 Milliliter 07/22/2016 No longer Active Kenalog 40 mg/mL suspension for injection RxNorm: 5802875 Milliliter 02/05/2015 No longer Active Immunizations Vaccine [...] Code Item Item Code Result Date Pt Ppo0096 PT 38.6 seconds 07/19/2018 Pt Brh0697 INR 4.0 07/19/2018 Pt Rmh0964 Low Intensity - 1.5-2.0 07/19/2018 Pt Wpy6445 Mod intensity - 2.0-3.0 07/19/2018 Pt Yjl0612 Hi intensity - 3.0-4.0 07/19/2018 Pt Oli9755 PT 25.7 seconds 07/11/2018 Pt Pyx4443 INR 2.4 07/11/2018 Pt Zxj4790 Low Intensity - 1.5-2.0 07/11/2018 Pt Nfg7536 Mod intensity - 2.0-3.0 07/11/2018 Pt Aws8652 Hi intensity - 3.0-4.0 07/11/2018 Pt Cgb8076 PT 18.5 seconds 07/08/2018 Pt Cmb5691 INR 1.6 07/08/2018 Pt Iyh2556 Low Intensity - 1.5-2.0 07/08/2018 Pt Ljr2032 Mod intensity - 2.0-3.0 07/08/2018 Pt Gyd6085 Hi intensity - 3.0-4.0 07/08/2018 Pt Alt5517 PT 27.3 seconds 06/29/2018 Pt Emp3122 INR 2.6 06/29/2018 Pt Mjb7031 Low Intensity - 1.5-2.0 06/29/2018 Pt Jqo2489 Mod intensity - 2.0-3.0 06/29/2018 Pt Byw9937 Hi intensity - 3.0-4.0 06/29/2018 Pt Nty3630 PT 24.0 seconds 05/26/2018 Pt Loz8382 INR 2.2 05/26/2018 Pt Ywf8588 Low Intensity - 1.5-2.0 05/26/2018 Pt Icv0188 Mod intensity - 2.0-3.0 05/26/2018 Pt Uky2948 Hi intensity - 3.0-4.0 05/26/2018 Tsh Ord6 TSH (3rd IS) 2.09 uIU/mL 03/25/2018 Cbc With Differential Ord2 WBC 8.83 K/ul 03/25/2018 Cbc With Differential Ord2 RBC 4.76 M/ul 03/25/2018 Cbc With Differential Ord2 HGB 14.1 g/dl 03/25/2018 Cbc With Differential Ord2 HCT 43.6 % 03/25/2018 Cbc With Differential Ord2 Neut% 61.6 % 03/25/2018 Cbc With Differential Ord2 Lymph% 24.8 % 03/25/2018 Cbc With Differential Ord2 MCV 91.6 fl 03/25/2018 Cbc With Differential Ord2 MCH 29.6 pg 03/25/2018 Cbc With Differential Ord2 Thayer% 9.5 % 03/25/2018 Cbc With Differential Ord2 MCHC 32.3 pg 03/25/2018 Cbc With Differential Ord2 Eos% 3.6 % 03/25/2018 Cbc With Differential Ord2 Baso% 0.5 % 03/25/2018 Cbc With Differential Ord2 PLT 322 K/ul 03/25/2018 Cbc With Differential Ord2 RDW 17.2 % 03/25/2018 Cbc With Differential Ord2 Neut ABS# 5.44 K/ul 03/25/2018 Cbc With Differential Ord2 Lymph ABS# 2.19 K/ul 03/25/2018 Cbc With Differential Ord2 [place] ABS# 0.8 K/ul 03/25/2018 Cbc With Differential Ord2 Eos ABS# 0.3 K/ul 03/25/2018 Cbc With Differential Ord2 Baso ABS# 0.0 K/ul 03/25/2018 Lipid Ord30 CHOL 156 mg/dL 03/25/2018 Lipid Ord30 HDL 52.0 mg/dl 03/25/2018 Lipid Ord30 TRIG 98 mg/dL 03/25/2018 Lipid Ord30 LDL 84 mg/dL 03/25/2018 Lipid Ord30 C/HDL 3.0 Ratio 03/25/2018 Free T4 Igz494 FREE T4 1.73 ng/dL 03/25/2018 Comp Metabolic Wyj256 NA 143 mEq/L 03/25/2018 Comp Metabolic Xqh053 K 4.6 mEq/L 03/25/2018 Comp Metabolic Mfx248 CL 108 mEq/L 03/25/2018 Comp Metabolic Uul935 CO2 26.0 mEq/L 03/25/2018 Comp Metabolic Ulf465 AN ION GAP 14 03/25/2018 Comp Metabolic Swj187 GL UCOSE 87 mg/dL 03/25/2018 Comp Metabolic Aio720 Cr eat 1.2 mg/dL 03/25/2018 Comp Metabolic Rgv746 eG FR 48 ml/min/1.73m2 03/25 Comp Metabolic Puf591 BUN 18 mg/dL 03/25/2018 Comp Metabolic Rnq017 B/ C Ratio 15.5 Ratio 03/25/2018 Comp Metabolic Dua555 CA LCIUM 9.1 mg/dL 03/25/2018 Comp Metabolic Qza477 AL K PHOS 58 U/L 03/25/2018 Comp Metabolic Hcl117 T(SGOT) 21 U/L 03/25/2018 Comp Metabolic Odx177 AL T(SGPT) 13 U/L 03/25/2018 Comp Metabolic Mpf387 BI LI T 0.7 mg/dL 03/25/2018 Comp Metabolic Lgi509 AL BUMIN 3.2 g/dL 03/25/2018 Comp Metabolic Kly849 TP RO 5.5 g/dL 03/25/2018 Comp Metabolic Wdi955 GL OB 2.3 g/dL 03/25/2018 Comp Metabolic Xnx333 A/ G Ratio 1.4 Ratio 03/25/2018 Comp Metabolic Mve536 Os mo 286 mOsmo 03/25/2018 Pt Amm1467 PT 29.0 seconds 03/22/2018 Pt Bsw7187 INR 2.7 03/22/2018 Pt Enc7490 Low Intensity - 1.5-2.0 03/22/2018 Pt Kie1371 Mod intensity - 2.0-3.0 03/22/2018 Pt Xmm6257 Hi intensity - 3.0-4.0 03/22/2018 Pt Gfq0479 PT 27.1 seconds 02/25/2018 Pt Ceo1482 INR 2.5 02/25/2018 Pt Czw0082 Low Intensity - 1.5-2.0 02/25/2018 Pt Bps1406 Mod intensity - 2.0-3.0 02/25/2018 Pt Gsm9110 Hi intensity - 3.0-4.0 02/25/2018 Pt Kzo0656 PT 26.1 seconds 01/26/2018 Pt Npt2906 INR 2.4 01/26/2018 Pt Xgm6384 Low Intensity - 1.5-2.0 01/26/2018 Pt Gyk0110 Mod intensity - 2.0-3.0 01/26/2018 Pt Acv8488 Hi intensity - 3.0-4.0 01/26/2018 Pt Jes0995 PT 22.8 seconds 12/24/2017 Pt Bsk4290 INR 2.0 12/24/2017 Pt Wfz2474 Low Intensity - 1.5-2.0 12/24/2017 Pt Kbu8403 Mod intensity - 2.0-3.0 12/24/2017 Pt Lfk4698 Hi intensity - 3.0-4.0 12/24/2017 Pt Boz2984 PT 29.4 seconds 11/18/2017 Pt Clr7409 INR 2.8 11/18/2017 Pt Stb9053 Low Intensity - 1.5-2.0 11/18/2017 Pt Ktb7066 Mod intensity - 2.0-3.0 11/18/2017 Pt Ehw2542 Hi intensity - 3.0-4.0 11/18/2017 Pt Jfz6841 PT 26.6 seconds 09/13/2017 Pt Kmk8966 INR 2.4 09/13/2017 Pt Jxv4083 Low Intensity - 1.5-2.0 09/13/2017 Pt Znj7849 Mod intensity - 2.0-3.0 09/13/2017 Pt Wut4786 Hi intensity - 3.0-4.0 09/13/2017 Pt Tts0240 PT 28.2 seconds 08/10/2017 Pt Jxf3016 INR 2.6 08/10/2017 Pt Hmr2481 Low Intensity - 1.5-2.0 08/10/2017 Pt Hcv2764 Mod intensity - 2.0-3.0 08/10/2017 Pt Saa5740 Hi intensity - 3.0-4.0 08/10/2017 Pt Atd8163 PT 33.9 seconds 07/27/2017 Pt Qcd7934 INR 3.3 07/27/2017 Pt Xka0656 Low Intensity - 1.5-2.0 07/27/2017 Pt Lyt1529 Mod intensity - 2.0-3.0 07/27/2017 Pt Jpl1255 Hi intensity - 3.0-4.0 07/27/2017 Pt Qka3969 PT 29.1 seconds 06/29/2017 Pt Adm1679 INR 2.7 06/29/2017 Pt Yqk5987 Low Intensity - 1.5-2.0 06/29/2017 Pt Lwm0627 Mod intensity - 2.0-3.0 06/29/2017 Pt Xyp4464 Hi intensity - 3.0-4.0 06/29/2017 Pt Cgm5255 PT 30.3 seconds 06/11/2017 Pt Mau8626 INR 2.9 06/11/2017 Pt Bjd2963 Low Intensity - 1.5-2.0 06/11/2017 Pt Ugx3589 Mod intensity - 2.0-3.0 06/11/2017 Pt Vic0207 Hi intensity - 3.0-4.0 06/11/2017 Pt Vxg9739 PT 39.1 seconds 06/07/2017 Pt Hdg0391 INR 3.9 06/07/2017 Pt Chc5261 Low Intensity - 1.5-2.0 06/07/2017 Pt Tks6472 Mod intensity - 2.0-3.0 06/07/2017 Pt Qzu1432 Hi intensity - 3.0-4.0 06/07/2017 Pt Bzf6818 PT 34.2 seconds 05/26/2017 Pt Uyl6687 INR 3.3 05/26/2017 Pt Ifn9328 Low Intensity - 1.5-2.0 05/26/2017 Pt Xed5339 Mod intensity - 2.0-3.0 05/26/2017 Pt Ydp1617 Hi intensity - 3.0-4.0 05/26/2017 Comp Metabolic Srh012 NA 138 mEq/L 04/23/2017 Comp Metabolic Xxl755 K 4.2 mEq/L 04/23/2017 Comp Metabolic Efz507 CL 101 mEq/L 04/23/2017 Comp Metabolic Toq532 CO2 28.0 mEq/L 04/23/2017 Comp Metabolic Nim361 AN ION GAP 13 04/23/2017 Comp Metabolic Bnd930 GL UCOSE 89 mg/dL 04/23/2017 Comp Metabolic Oji049 Cr eat 1.1 mg/dL 04/23/2017 Comp Metabolic Otf711 eG FR 51 ml/min/1.73m2 04/23 Comp Metabolic Rxs741 BUN 26 mg/dL 04/23/2017 Comp Metabolic Qqu623 B/ C Ratio 23.9 Ratio 04/23/2017 Comp Metabolic Qfx081 CA LCIUM 9.4 mg/dL 04/23/2017 Comp Metabolic Xkh213 AL K PHOS 95 U/L 04/23/2017 Comp Metabolic Cnc966 T(SGOT) 18 U/L 04/23/2017 Comp Metabolic Axl558 AL T(SGPT) 17 U/L 04/23/2017 Comp Metabolic Pcp638 BI LI T 0.7 mg/dL 04/23/2017 Comp Metabolic Rbc573 AL BUMIN 3.2 g/dL 04/23/2017 Comp Metabolic Zqj860 TP RO 5.6 g/dL 04/23/2017 Comp Metabolic Qvb987 GL OB 2.4 g/dL 04/23/2017 Comp Metabolic Xhb933 A/ G Ratio 1.3 Ratio 04/23/2017 Comp Metabolic Pli443 Os mo 280 mOsmo 04/23/2017 Pt Tyo5453 PT 28.6 seconds 04/23/2017 Pt Obi5355 INR 2.7 04/23/2017 Pt Jzp6737 Low Intensity - 1.5-2.0 04/23/2017 Pt Yup7974 Mod intensity - 2.0-3.0 04/23/2017 Pt Bzt0045 Hi intensity - 3.0-4.0 04/23/2017 Pt Lmz4672 PT 24.4 seconds 03/16/2017 Pt Awk4714 INR 2.2 03/16/2017 Pt Myc4008 Low Intensity - 1.5-2.0 03/16/2017 Pt Zul8583 Mod intensity - 2.0-3.0 03/16/2017 Pt Hva1866 Hi intensity - 3.0-4.0 03/16/2017 Pt Qex8675 PT 28.2 seconds 02/24/2017 Pt Dlv3548 INR 2.6 02/24/2017 Pt Aub8875 Low Intensity - 1.5-2.0 02/24/2017 Pt Tar4776 Mod intensity - 2.0-3.0 02/24/2017 Pt Sgq7081 Hi intensity - 3.0-4.0 02/24/2017 Pt Cfe2133 PT 26.8 seconds 02/08/2017 Pt Wga9337 INR 2.5 02/08/2017 Pt Drb2434 Low Intensity - 1.5-2.0 02/08/2017 Pt Uqq4024 Mod intensity - 2.0-3.0 02/08/2017 Pt Vuz7315 Hi intensity - 3.0-4.0 02/08/2017 Lipid Ord30 CHOL 150 mg/dL 01/25/2017 Lipid Ord30 HDL 55.0 mg/dl 01/25/2017 Lipid Ord30 TRIG 66 mg/dL 01/25/2017 Lipid Ord30 LDL 82 mg/dL 01/25/2017 Lipid Ord30 C/HDL 2.7 Ratio 01/25/2017 Pt Ddv4908 PT 29.9 seconds 01/25/2017 Pt Koq4766 INR 2.8 01/25/2017 Pt Ubz4786 Low Intensity - 1.5-2.0 01/25/2017 Pt Vbq9269 Mod intensity - 2.0-3.0 01/25/2017 Pt Ucb5069 Hi intensity - 3.0-4.0 01/25/2017 Comp Metabolic Ejm547 NA 143 mEq/L 01/25/2017 Comp Metabolic Pdq682 K 3.9 mEq/L 01/25/2017 Comp Metabolic Xby780 CL 108 mEq/L 01/25/2017 Comp Metabolic Qto210 CO2 23.0 mEq/L 01/25/2017 Comp Metabolic Mnl739 AN ION GAP 16 01/25/2017 Comp Metabolic Mha731 GL UCOSE 80 mg/dL 01/25/2017 Comp Metabolic Ktc782 Cr eat 1.0 mg/dL 01/25/2017 Comp Metabolic Obf353 eG FR 57 ml/min/1.73m2 01/25 Comp Metabolic Luk065 BUN 25 mg/dL 01/25/2017 Comp Metabolic Kai791 B/ C Ratio 25.0 Ratio 01/25/2017 Comp Metabolic Qwt751 CA LCIUM 8.5 mg/dL 01/25/2017 Comp Metabolic Uin051 AL K PHOS 81 U/L 01/25/2017 Comp Metabolic Txf544 T(SGOT) 19 U/L 01/25/2017 Comp Metabolic Jcv595 AL T(SGPT) 23 U/L 01/25/2017 Comp Metabolic Alk463 BI LI T 0.5 mg/dL 01/25/2017 Comp Metabolic Boa314 AL BUMIN 2.9 g/dL 01/25/2017 Comp Metabolic Pwk889 TP RO 5.1 g/dL 01/25/2017 Comp Metabolic Ujk162 GL OB 2.2 g/dL 01/25/2017 Comp Metabolic Bfw084 A/ G Ratio 1.3 Ratio 01/25/2017 Comp Metabolic Jmm238 Os mo 288 mOsmo 01/25/2017 Cbc With [...] 30.3 % 01/25/2017 Cbc With Differential Ord2 [place]% 8.2 % 01/25/2017 Cbc With Differential Ord2 [...] 3.10 K/ul 01/25/2017 Cbc With Differential Ord2 [place] ABS# 0.8 K/ul 01/25/2017 Cbc With Differential Ord2 Eos ABS# 0.4 K/ul 01/25/2017 Cbc With Differential Ord2 Baso ABS# 0.1 K/ul 01/25/2017 Free T4 Kqm889 FREE T4 2.09 ng/dL 01/25/2017 Tsh Ord6 hTSH II 0.46 uIU/mL 01/25/2017 Pt Zgo1344 PT 26.1 seconds 11/26/2016 Pt Fgp6484 INR 2.6 11/26/2016 Pt Lok8265 Low Intensity - 1.5-2.0 11/26/2016 Pt Pjz0071 Mod intensity - 2.0-3.0 11/26/2016 Pt Jeo5932 Hi intensity - 3.0-4.0 11/26/2016 Pt Nww9726 PT 26.2 seconds 10/29/2016 Pt Cju7204 INR 2.6 10/29/2016 Pt Qdg3330 Low Intensity - 1.5-2.0 10/29/2016 Pt Poa5473 Mod intensity - 2.0-3.0 10/29/2016 Pt Frw5715 Hi intensity - 3.0-4.0 10/29/2016 Pt Vpu4040 PT 20.8 seconds 10/13/2016 Pt Vwe1846 INR 1.9 10/13/2016 Pt Idu0117 Low Intensity - 1.5-2.0 10/13/2016 Pt Ytg3418 Mod intensity - 2.0-3.0 10/13/2016 Pt Til4700 Hi intensity - 3.0-4.0 10/13/2016 Pt Ajl3736 PT 26.5 seconds 10/01/2016 Pt Uso9151 INR 2.6 10/01/2016 Pt Vtw3014 Low Intensity - 1.5-2.0 10/01/2016 Pt Rmr6588 Mod intensity - 2.0-3.0 10/01/2016 Pt Dqr2891 Hi intensity - 3.0-4.0 10/01/2016 Pt Wca6926 PT 24.6 seconds 09/14/2016 Pt Xfq3990 INR 2.4 09/14/2016 Pt Ncu5799 Low Intensity - 1.5-2.0 09/14/2016 Pt Fkp6568 Mod intensity - 2.0-3.0 09/14/2016 Pt Par6409 Hi intensity - 3.0-4.0 09/14/2016 Pt Vxj7086 PT 18.0 seconds 09/07/2016 Pt Hog6401 INR 1.6 09/07/2016 Pt Cgx8739 Low Intensity - 1.5-2.0 09/07/2016 Pt Bjm9455 Mod intensity - 2.0-3.0 09/07/2016 Pt Zlw2376 Hi intensity - 3.0-4.0 09/07/2016 Pt Toi3789 PT 23.7 seconds 08/12/2016 Pt Frn3226 INR 2.2 08/12/2016 Pt Yra0564 Low Intensity - 1.5-2.0 08/12/2016 Pt Ilz4495 Mod intensity - 2.0-3.0 08/12/2016 Pt Gew8011 Hi intensity - 3.0-4.0 08/12/2016 Pt Hyn5907 PT 21.6 seconds 07/27/2016 Pt Nsv4458 INR 2.0 07/27/2016 Pt Coj3783 Low Intensity - 1.5-2.0 07/27/2016 Pt Kyq8033 Mod intensity - 2.0-3.0 07/27/2016 Pt Iau4406 Hi intensity - 3.0-4.0 07/27/2016 Pt Qzo9585 PT 26.0 seconds 06/15/2016 Pt Ioq5575 INR 2.5 06/15/2016 Pt Tzh7948 Low Intensity - 1.5-2.0 06/15/2016 Pt Euw0690 Mod intensity - 2.0-3.0 06/15/2016 Pt Cuq4828 Hi intensity - 3.0-4.0 06/15/2016 Pt Ivh4241 PT 18.8 seconds 06/01/2016 Pt Ihh9011 INR 1.7 06/01/2016 Pt Rft1089 Low Intensity - 1.5-2.0 06/01/2016 Pt Wng5875 Mod intensity - 2.0-3.0 06/01/2016 Pt Slh9239 Hi intensity - 3.0-4.0 06/01/2016 Pt Kwp8727 PT 20.8 seconds 05/12/2016 Pt Vhz6282 INR 1.9 05/12/2016 Pt Brk7778 Low Intensity - 1.5-2.0 05/12/2016 Pt Xxo8995 Mod intensity - 2.0-3.0 05/12/2016 Pt Yeo4512 Hi intensity - 3.0-4.0 05/12/2016 Pt Lvz0196 PT 24.5 seconds 04/10/2016 Pt Vis0054 INR 2.4 04/10/2016 Pt Tdt8556 Low Intensity - 1.5-2.0 04/10/2016 Pt Isw1100 Mod intensity - 2.0-3.0 04/10/2016 Pt Yho9668 Hi intensity - 3.0-4.0 04/10/2016 Pt Iod2504 PT 26.4 seconds 03/10/2016 Pt Ayz3644 INR 2.6 03/10/2016 Pt Nwq9910 Low Intensity - 1.5-2.0 03/10/2016 Pt Pnl0540 Mod intensity - 2.0-3.0 03/10/2016 Pt Rwu3896 Hi intensity - 3.0-4.0 03/10/2016 Pt Nav7870 PT 24.9 seconds 03/06/2016 Pt Shp0467 INR 2.4 03/06/2016 Pt Dxg0377 Low Intensity - 1.5-2.0 03/06/2016 Pt Fbs1344 Mod intensity - 2.0-3.0 03/06/2016 Pt Dbf1700 Hi intensity - 3.0-4.0 03/06/2016 Pt Ycd3942 PT 21.9 seconds 02/25/2016 Pt Cwf7730 INR 2.0 02/25/2016 Pt Rsl8673 Low Intensity - 1.5-2.0 02/25/2016 Pt Ngm7223 Mod intensity - 2.0-3.0 02/25/2016 Pt Wtk6676 Hi intensity - 3.0-4.0 02/25/2016 Pt Uxc6660 PT 21.8 seconds 02/21/2016 Pt Fmr9263 INR 2.0 02/21/2016 Pt Rew1893 Low Intensity - 1.5-2.0 02/21/2016 Pt Khw9211 Mod intensity - 2.0-3.0 02/21/2016 Pt Bly2515 Hi intensity - 3.0-4.0 02/21/2016 Culture Urine [id number] URI NE CULTURE SEE NOTES 02/20/2016 Culture Urine [id number] Con tinued Results 02/20/2016 Urine Culture Ucult [...] U-Prote in Negative 02/14/2016 Urinalysis Ord28 U-Urobi etsella 0.2 E.U./dL E.U./dL Urinalysis Ord28 U-Nitri carol [...] 29.0 % 02/14/2016 Cbc With Differential Ord2 Thayer% 9.3 % 02/14/2016 Cbc With Differential Ord2 MCH 29.2 pg 02/14/2016 Cbc With Differential Ord2 MCHC 31.8 pg 02/14/2016 Cbc With Differential Ord2 Eos% 4.8 % 02/14/2016 Cbc With Differential Ord2 PLT 355 K/ul 02/14/2016 Cbc With Differential Ord2 Baso% 0.6 % 02/14/2016 Cbc With Differential Ord2 Neut ABS# 4.94 K/ul 02/14/2016 Cbc With Differential Ord2 RDW 16.2 % 02/14/2016 Cbc With Differential Ord2 Lymph ABS# 2.55 K/ul 02/14/2016 Cbc With Differential Ord2 Thayer ABS# 0.8 K/ul 02/14/2016 Cbc With Differential Ord2 Eos ABS# 0.4 K/ul 02/14/2016 Cbc With Differential Ord2 Baso ABS# 0.1 K/ul 02/14/2016 Tsh Ord6 hTSH II 0.80 uIU/mL 02/14/2016 Pt Etz8606 PT 27.1 seconds 02/14/2016 Pt Gws9312 INR 2.7 02/14/2016 Pt Huy4621 Low Intensity - 1.5-2.0 02/14/2016 Pt Hlo8559 Mod intensity - 2.0-3.0 02/14/2016 Pt Jaz1664 Hi intensity - 3.0-4.0 02/14/2016 Free T4 Hor258 FREE T4 1.87 ng/dL 02/14/2016 Comp Metabolic Eua788 NA 139 mEq/L 02/14/2016 Comp Metabolic Ifn599 K 3.8 mEq/L 02/14/2016 Comp Metabolic Gzo446 CL 103 mEq/L 02/14/2016 Comp Metabolic Fka588 CO2 27.0 mEq/L 02/14/2016 Comp Metabolic Ijm623 AN ION GAP 13 02/14/2016 Comp Metabolic Yzr963 GL UCOSE 91 mg/dL 02/14/2016 Comp Metabolic Lax545 Cr eat 1.0 mg/dL 02/14/2016 Comp Metabolic Yeb772 eG FR 58 ml/min/1.73m2 02/13 Comp Metabolic How369 BUN 16 mg/dL 02/14/2016 Comp Metabolic Iqn089 B/ C Ratio 16.2 Ratio 02/14/2016 Comp Metabolic Nen796 CA LCIUM 9.0 mg/dL 02/14/2016 Comp Metabolic Hdr887 AL K PHOS 88 U/L 02/14/2016 Comp Metabolic Cth332 T(SGOT) 17 U/L 02/14/2016 Comp Metabolic Ehf374 AL T(SGPT) 12 U/L 02/14/2016 Comp Metabolic Dwo868 BI LI T 0.6 mg/dL 02/14/2016 Comp Metabolic Wru139 AL BUMIN 3.2 g/dL 02/14/2016 Comp Metabolic Rdj262 TP RO 5.8 g/dL 02/14/2016 Comp Metabolic Hhp990 GL OB 2.6 g/dL 02/14/2016 Comp Metabolic Omy309 A/ G Ratio 1.3 Ratio 02/14/2016 Comp Metabolic Phe166 Os mo 278 mOsmo 02/14/2016 Pt Fta2448 PT 34.6 seconds 02/06/2016 Pt Oqm8024 INR 3.7 02/06/2016 Pt Wlf9504 Low Intensity - 1.5-2.0 02/06/2016 Pt Kxq5355 Mod intensity - 2.0-3.0 02/06/2016 Pt Lgd5346 Hi intensity - 3.0-4.0 02/06/2016 Pt Nbr9559 PT 33.3 seconds 01/23/2016 Pt Wyt4814 INR 3.5 01/23/2016 Pt Ycv9853 Low Intensity - 1.5-2.0 01/23/2016 Pt Tlh8154 Mod intensity - 2.0-3.0 01/23/2016 Pt Byq4609 Hi intensity - 3.0-4.0 01/23/2016 Pt Kyx1143 PT 30.5 seconds 12/31/2015 Pt Gff1577 INR 3.2 12/31/2015 Pt Awo4487 Low Intensity - 1.5-2.0 12/31/2015 Pt Tos0825 Mod intensity - 2.0-3.0 12/31/2015 Pt Lbg6215 Hi intensity - 3.0-4.0 12/31/2015 Pt Njg0769 PT 35.6 seconds 12/25/2015 Pt Ixr1380 INR 3.9 12/25/2015 Pt Hvk8888 Low Intensity - 1.5-2.0 12/25/2015 Pt Ssv0235 Mod intensity - 2.0-3.0 12/25/2015 Pt Vpj6006 Hi intensity - 3.0-4.0 12/25/2015 Pt Gip2930 PT 30.8 seconds 11/21/2015 Pt Vgs2905 INR 3.2 11/21/2015 Pt Tjp0199 Low Intensity - 1.5-2.0 11/21/2015 Pt Lqb8950 Mod intensity - 2.0-3.0 11/21/2015 Pt Odb4319 Hi intensity - 3.0-4.0 11/21/2015 Uric Acid [...] 30.0 pg 11/20/2015 Cbc With Differential Ord2 Thayer% 8.1 % 11/20/2015 Cbc With Differential Ord2 [...] 2.51 K/ul 11/20/2015 Cbc With Differential Ord2 Thayer ABS# 0.9 K/ul 11/20/2015 Cbc With Differential Ord2 Eos ABS# 0.3 K/ul 11/20/2015 Cbc With Differential Ord2 Baso ABS# 0.0 K/ul 11/20/2015 Comp Metabolic Jnd314 NA 137 mEq/L 10/22/2015 Comp Metabolic Ljc323 K 3.9 mEq/L 10/22/2015 Comp Metabolic Xvq265 CL 100 mEq/L 10/22/2015 Comp Metabolic Hki598 CO2 31.0 mEq/L 10/22/2015 Comp Metabolic Wjs082 AN ION GAP 10 10/22/2015 Comp Metabolic Scy691 GL UCOSE 94 mg/dL 10/22/2015 Comp Metabolic Jym625 Cr eat 1.0 mg/dL 10/22/2015 Comp Metabolic Nsk743 eG FR 55 ml/min/1.73m2 10/21 Comp Metabolic Idb401 BUN 19 mg/dL 10/22/2015 Comp Metabolic Ejl872 B/ C Ratio 18.3 Ratio 10/22/2015 Comp Metabolic Eny726 CA LCIUM 8.8 mg/dL 10/22/2015 Comp Metabolic Jcu207 AL K PHOS 83 U/L 10/22/2015 Comp Metabolic Haf651 T(SGOT) 15 U/L 10/22/2015 Comp Metabolic Hki346 AL T(SGPT) 13 U/L 10/22/2015 Comp Metabolic Osv580 BI LI T 0.9 mg/dL 10/22/2015 Comp Metabolic Opz261 AL BUMIN 2.8 g/dL 10/22/2015 Comp Metabolic Gje045 TP RO 5.4 g/dL 10/22/2015 Comp Metabolic Ylb162 GL OB 2.6 g/dL 10/22/2015 Comp Metabolic Wsc520 A/ G Ratio 1.1 Ratio 10/22/2015 Comp Metabolic Rxf790 Os mo 276 mOsmo 10/22/2015 Bili D Ord93 BILI D 0.1 mg/dL 10/22/2015 Bili D Ord93 BILI I 0.8 mg/dL 10/22/2015 Pt Ylr1465 PT 22.8 seconds 10/22/2015 Pt Ari0838 INR 2.1 10/22/2015 Pt Rer5139 Low Intensity - 1.5-2.0 10/22/2015 Pt Teg5730 Mod intensity - 2.0-3.0 10/22/2015 Pt Osd5095 Hi intensity - 3.0-4.0 10/22/2015 Pt Tgx3126 PT 28.0 seconds 09/16/2015 Pt Oaf6376 INR 2.7 09/16/2015 Pt Jwh3121 Low Intensity - 1.5-2.0 09/16/2015 Pt Hmu2687 Mod intensity - 2.0-3.0 09/16/2015 Pt Xcy5728 Hi intensity - 3.0-4.0 09/16/2015 Tsh Ord6 hTSH II 1.40 uIU/mL 09/16/2015 Free T4 Naa407 FREE T4 1.73 ng/dL 09/16/2015 Lipid Ord30 CHOL 169 mg/dL 09/16/2015 Lipid Ord30 HDL 66.0 mg/dl 09/16/2015 Lipid Ord30 TRIG 78 mg/dL 09/16/2015 Lipid Ord30 LDL 87 mg/dL 09/16/2015 Lipid Ord30 C/HDL 2.6 Ratio 09/16/2015 Pt Yia1214 PT 26.6 seconds 08/21/2015 Pt Ypz3000 INR 2.6 08/21/2015 Pt Fdx2282 Low Intensity - 1.5-2.0 08/21/2015 Pt Euj5476 Mod intensity - 2.0-3.0 08/21/2015 Pt Owy6633 Hi intensity - 3.0-4.0 08/21/2015 Comp Metabolic Fgb179 NA 141 mEq/L 08/08/2015 Comp Metabolic Ged321 K 3.3 mEq/L 08/08/2015 Comp Metabolic Zet230 CL 102 mEq/L 08/08/2015 Comp Metabolic Exd880 CO2 31.0 mEq/L 08/08/2015 Comp Metabolic Qvc533 AN ION GAP 11 08/08/2015 Comp Metabolic Anl540 GL UCOSE 83 mg/dL 08/08/2015 Comp Metabolic Spl506 Cr eat 1.0 mg/dL 08/08/2015 Comp Metabolic Gdm066 eG FR 55 ml/min/1.73m2 08/08 Comp Metabolic Hbi845 BUN 19 mg/dL 08/08/2015 Comp Metabolic Mjn179 B/ C Ratio 18.3 Ratio 08/08/2015 Comp Metabolic Gwu773 CA LCIUM 8.9 mg/dL 08/08/2015 Comp Metabolic Xbq109 AL K PHOS 84 U/L 08/08/2015 Comp Metabolic Qhz357 T(SGOT) 20 U/L 08/08/2015 Comp Metabolic Qvd942 AL T(SGPT) 18 U/L 08/08/2015 Comp Metabolic Ayh279 BI LI T 0.6 mg/dL 08/08/2015 Comp Metabolic Xjn772 AL BUMIN 3.3 g/dL 08/08/2015 Comp Metabolic Mbf570 TP RO 5.9 g/dL 08/08/2015 Comp Metabolic Zre592 GL OB 2.6 g/dL 08/08/2015 Comp Metabolic Kdn976 A/ G Ratio 1.3 Ratio 08/08/2015 Comp Metabolic Klo387 Os mo 283 mOsmo 08/08/2015 Cbc With [...] 30.0 pg 08/08/2015 Cbc With Differential Ord2 Thayer% 8.2 % 08/08/2015 Cbc With Differential Ord2 [...] 2.90 K/ul 08/08/2015 Cbc With Differential Ord2 Thayer ABS# 0.9 K/ul 08/08/2015 Cbc With Differential [...] Ord93 BILI I 0.5 mg/dL 08/08/2015 Pt Bae6147 PT 31.8 seconds 08/05/2015 Pt Eif4855 INR 3.2 08/05/2015 Pt Kau3264 Low Intensity - 1.5-2.0 08/05/2015 Pt Jxm7865 Mod intensity - 2.0-3.0 08/05/2015 Pt Crt3901 Hi intensity - 3.0-4.0 08/05/2015 Pt Szy2338 PT 27.4 seconds 06/27/2015 Pt Yzo8505 INR 2.6 06/27/2015 Pt Nha3704 Low Intensity - 1.5-2.0 06/27/2015 Pt Anj3697 Mod intensity - 2.0-3.0 06/27/2015 Pt Dkw1275 Hi intensity - 3.0-4.0 06/27/2015 Tsh Ord6 [...] Ord2 RDW 15.1 % 05/31/2015 Free T4 Rhr275 FREE T4 1.89 ng/dL 05/31/2015 Comp Metabolic Qor076 NA 140 mEq/L 05/31/2015 Comp Metabolic Xzx621 K 3.3 mEq/L 05/31/2015 Comp Metabolic Ygz248 CL 99 mEq/L 05/31/2015 Comp Metabolic Cdv789 CO2 30.0 mEq/L 05/31/2015 Comp Metabolic Fqh395 AN ION GAP 14 05/31/2015 Comp Metabolic Hvs867 GL UCOSE 70 mg/dL 05/31/2015 Comp Metabolic Gwz205 Cr eat 1.0 mg/dL 05/31/2015 Comp Metabolic Mzl822 eG FR 55 ml/min/1.73m2 05/31 Comp Metabolic Rcz290 BUN 23 mg/dL 05/31/2015 Comp Metabolic Wnv072 B/ C Ratio 22.1 Ratio 05/31/2015 Comp Metabolic Yqh555 CA LCIUM 8.9 mg/dL 05/31/2015 Comp Metabolic Nsj169 AL K PHOS 86 U/L 05/31/2015 Comp Metabolic Afo247 T(SGOT) 28 U/L 05/31/2015 Comp Metabolic Ywi732 AL T(SGPT) 30 U/L 05/31/2015 Comp Metabolic Jxd750 BI LI T 0.4 mg/dL 05/31/2015 Comp Metabolic Qwz667 AL BUMIN 3.3 g/dL 05/31/2015 Comp Metabolic Beb628 TP RO 6.0 g/dL 05/31/2015 Comp Metabolic Wgx232 GL OB 2.7 g/dL 05/31/2015 Comp Metabolic Oto975 A/ G Ratio 1.2 Ratio 05/31/2015 Comp Metabolic Qzp007 Os mo 282 mOsmo 05/31/2015 Pt Pks8098 PT 23.3 seconds 04/15/2015 Pt Inh5872 INR 2.2 04/15/2015 Pt Rjd2389 Low Intensity - 1.5-2.0 04/15/2015 Pt Cgb7034 Mod intensity - 2.0-3.0 04/15/2015 Pt Qlr3514 Hi intensity - 3.0-4.0 04/15/2015 Pt Ehy6720 PT 19.5 seconds 04/04/2015 Pt Nvt5100 INR 1.7 04/04/2015 Pt Rfa0047 Low Intensity - 1.5-2.0 04/04/2015 Pt Ibe3528 Mod intensity - 2.0-3.0 04/04/2015 Pt Ggg9687 Hi intensity - 3.0-4.0 04/04/2015 Pt Paw0186 PT 39.8 seconds 04/01/2015 Pt Gkf8320 INR 4.3 04/01/2015 Pt Pgt5514 Low Intensity - 1.5-2.0 04/01/2015 Pt Whz0764 Mod intensity - 2.0-3.0 04/01/2015 Pt Fus5711 Hi intensity - 3.0-4.0 04/01/2015 Metabolic Ord15 [...] Metabolic Ord15 CALCIUM 8.7 mg/dL 02/28/2015 Pt Rne0554 PT 31.4 seconds 02/28/2015 Pt Kut7424 INR 3.2 02/28/2015 Pt Hma4332 Low Intensity - 1.5-2.0 02/28/2015 Pt Dgv0092 Mod intensity - 2.0-3.0 02/28/2015 Pt Xeq9157 Hi intensity - 3.0-4.0 02/28/2015 Pt Lry2544 PT 23.2 seconds 01/18/2015 Pt Aou4147 INR 2.1 01/18/2015 Pt Zwb9430 Low Intensity - 1.5-2.0 01/18/2015 Pt Qek2081 Mod intensity - 2.0-3.0 01/18/2015 Pt Hbg2645 Hi intensity - 3.0-4.0 01/18/2015 Pt Lcc9605 PT 18.2 seconds 01/10/2015 Pt Idu3060 INR 1.6 01/10/2015 Pt Tds3103 Low Intensity - 1.5-2.0 01/10/2015 Pt Sfq3624 Mod intensity - 2.0-3.0 01/10/2015 Pt Vgf3034 Hi intensity - 3.0-4.0 01/10/2015 Review of [...] 03/24/2018 ADMIN PNEUMOCOCCAL V ACCINE SNOMED CT: 06162108 CPT-4: G0009 03/24/2018 FLU VACC PRSV FREE I NC ANTIG Formatting Model/CDA Sections, Assigned to/Dorothea Tan CPT-4: 75868Pudrice 03/24/2018 Pneumococcal Polysac charide Vaccine, 23-Valent, Ad CPT-4: 34423 03/24/2018 TRIAMCINOLONE ACET I [place] NOS CPT-4: J3301 06/15/2017 THER/PROPH/DIAG INJ SC/IM CPT-4: 90158 06/15/2017 ADMIN PNEUMOCOCCAL V ACCINE SNOMED CT: 10965099 CPT-4: G0009 03/16/2017 ADMIN INFLUENZA VIRU S VAC CPT-4: G0008 03/16/2017 FLU VAC NO PRSV 4 VA L 3 YRS+ CPT-4: 53530 03/16/2017 PNEUMOCOCCAL VACC [address]: 63307974 CPT-4: 99364 03/16/2017 URINALYSIS NONAUTO W /O SCOPE CPT-4: 00141 08/26/2016 THER/PROPH/DIAG INJ SC/IM CPT-4: 38255 07/22/2016 TRIAMCINOLONE ACET I [place] NOS CPT-4: J3301 07/22/2016 ROCEPHIN, PER 250 MG CPT-4: J0696 07/22/2016 TRIAMCINOLONE ACET I [place] NOS CPT-4: J3301 02/05/2015 Vital Signs Date Vital 07/11/2018 Blood Pressure 1: 102/68 Code: 8480-6 BMI: 34.5 Code: 14208-0 Heart Rate 1: 101 bpm Height: 5'7" SpO2: 98% Weight: 220 lbs 03/24/2018 Blood Pressure 1: 130/72 Code: 8480-6 BMI: 33.4 Code: 72857-5 Heart Rate 1: 82 bpm Height: 5'7" SpO2: 93% Weight: 213 lbs 11/18/2017 Blood Pressure 1: 128/70 Code: 8480-6 BMI: 33.6 Code: 86596-6 Heart Rate 1: 98 bpm Height: 5'7" SpO2: 97% Weight: 214 lbs 8 oz 09/30/2017 Blood Pressure 1: 100/50 Code: 8480-6 BMI: 34.0 Code: 42894-7 Heart Rate 1: 66 bpm Height: 5'7" SpO2: 96% Weight: 217 lbs 08/17/2017 Blood Pressure 1: 104/60 Code: 8480-6 BMI: 33.7 Code: 31312-1 Heart Rate 1: 99 bpm Height: 5'7" SpO2: 97% Weight: 215 lbs 06/15/2017 Blood Pressure 1: 120/64 Code: 8480-6 BMI: 33.5 Code: 34322-2 Heart Rate 1: 91 bpm Height: 5'7" SpO2: 94% Weight: 214 lbs 04/01/2017 Blood Pressure 1: 110/68 Code: 8480-6 BMI: 154.4 Code: 27187-6 Heart Rate 1: 66 bpm Height: 2'7" SpO2: 95% Weight: 211 lbs 03/16/2017 Blood Pressure 1: 130/72 Code: 8480-6 BMI: 33.0 Code: 17842-9 Heart Rate 1: 95 bpm Height: 5'7" SpO2: 97% Weight: 211 lbs 02/09/2017 Blood Pressure 1: 120/70 Code: 8480-6 BMI: 32.9 Code: 85153-2 Heart Rate 1: 78 bpm Height: 5'7" SpO2: 96% Weight: 210 lbs 10/13/2016 Blood Pressure 1: 118/76 Code: 8480-6 BMI: 32.6 Code: 13720-5 Heart Rate 1: 97 bpm Height: 5'7" SpO2: 98% Weight: 208 lbs 07/31/2016 Blood Pressure 1: 11064 Code: 8480-6 BMI: 32.1 Code: 35956-6 Heart Rate 1: 79 bpm Height: 5'7" SpO2: 94% Weight: 205 lbs 07/22/2016 Blood Pressure 1: 108/74 Code: 8480-6 BMI: 32.1 Code: 74947-6 Heart Rate 1: 71 bpm Height: 5'7" SpO2: 97% Temperature: 36.9 (C ) / 98.4 (F) Weight: 205 lbs 05/01/2016 Blood Pressure 1: 120/72 Code: 8480-6 BMI: 32.7 Code: 68867-1 Heart Rate 1: 75 bpm Height: 5'7" SpO2: 94% Weight: 209 lbs 04/06/2016 Blood Pressure 1: 106/62 Code: 8480-6 BMI: 32.7 Code: 74633-0 Heart Rate 1: 83 bpm Height: 5'7" SpO2: 97% Weight: 209 lbs 03/06/2016 Blood Pressure 1: 112/68 Code: 8480-6 BMI: 32.7 Code: 40108-0 Heart Rate 1: 90 bpm Height: 5'7" SpO2: 97% Weight: 209 lbs 03/03/2016 Blood Pressure 1: 120/62 Code: 8480-6 BMI: 32.7 Code: 89043-6 Heart Rate 1: 92 bpm Height: 5'7" SpO2: 98% Weight: 209 lbs 02/07/2016 Blood Pressure 1: 110/64 Code: 8480-6 BMI: 32.7 Code: 72389-1 Heart Rate 1: 87 bpm Height: 5'7" SpO2: 97% Weight: 209 lbs 12/13/2015 Blood Pressure 1: 110/64 Code: 8480-6 BMI: 33.5 Code: 76043-2 Heart Rate 1: 90 bpm Height: 5'7" SpO2: 97% Weight: 214 lbs 12/03/2015 Blood Pressure 1: 132/76 Code: 8480-6 BMI: 33.4 Code: 48907-5 Heart Rate 1: 82 bpm Height: 5'7" SpO2: 99% Weight: 213 lbs 11/20/2015 Blood Pressure 1: 108/68 Code: 8480-6 BMI: 32.4 Code: 43037-4 Heart Rate 1: 77 bpm Height: 5'7" SpO2: 97% Weight: 207 lbs 09/17/2015 Blood Pressure 1: 122/76 Code: 8480-6 BMI: 33.0 Code: 35154-4 Heart Rate 1: 91 bpm Height: 5'7" SpO2: 97% Weight: 211 lbs 05/31/2015 Blood Pressure 1: 128/82 Code: 8480-6 BMI: 33.4 Code: 43704-8 Heart Rate 1: 98 bpm Height: 5'7" SpO2: 99% Weight: 213 lbs 02/05/2015 Blood Pressure 1: 128/80 Code: 8480-6 BMI: 32.6 Code: 13219-0 Heart Rate 1: 86 bpm Height: 5'7" SpO2: 97% Weight: 208 lbs 11/20/2014 Blood Pressure 1: 128/90 Code: 8480-6 BMI: 30.9 Code: 67599-0 Heart Rate 1: 94 bpm Height: 5'7" [...] Findings Denies fever 05/31/2015 None 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 P ATIENT, LEVEL IV Diagnosis: Atrophy of thyroid (acquired)[ICD10: E03.4] Diagnosis: Essential (primary) hypertension[ICD10: I10] Diagnosis: Other fatigue[ICD10: R53.83] Diagnosis: Localized edema[ICD10: R60.0] Valerie Pisano MD, [facility] CPT-4: 88426 07/11/2018 ([id number]) 03599 EST. P ATIENT, LEVEL IV Diagnosis: Essential (primary) hypertension[ICD10: I10] Diagnosis: Atrophy of thyroid (acquired)[ICD10: E03.4] Diagnosis: Chronic atrial fibrillation[ICD10: I48.2] Valerie Pisano MD, [facility] CPT-4: 44247 03/24/2018 ([id number]) 41973 EST. P ATIENT, LEVEL IV Diagnosis: Essential (primary) hypertension[ICD10: I10] Diagnosis: Atrophy of thyroid (acquired)[ICD10: E03.4] Diagnosis: Chronic atrial fibrillation[ICD10: I48.2] Valerie Pisano MD, [facility] CPT-4: 44490 11/18/2017 [id number] EST. PATIENT, LEVEL IV Diagnosis: Localized edema[ICD10: R60.0] Roxie Pisano MD, [facility] CPT-4: 75254 09/30/2017 ([id number]) 04097 EST. P ATIENT, LEVEL III Diagnosis: Essential (primary) hypertension[ICD10: I10] Valerie Pisano MD, [facility] CPT-4: 05861 08/17/2017 ([id number]) 66654 EST. P ATIENT, LEVEL IV Diagnosis: Essential (primary) hypertension[ICD10: I10] Diagnosis: Atrophy of thyroid (acquired)[ICD10: E03.4] Diagnosis: Chronic atrial fibrillation[ICD10: I48.2] Diagnosis: Cervicalgia[ICD10: M54.2] Diagnosis: Other muscle spasm[ICD10: M62.838] Valerie Pisano MD, [facility] CPT- 4: 15744 06/15/2017 [id number] EST. PATIENT, LEVEL III Diagnosis: Laceration without foreign body of other finger without damage to nail, initial encounter[ICD10: S61.218A] Roxie Pisano MD, [facility] CPT-4: 31596 04/01/2017 ([id number]) 26981 EST. 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 P ATIENT, LEVEL IV Diagnosis: Chronic atrial fibrillation[ICD10: I48.2] Diagnosis: Essential (primary) hypertension[ICD10: I10] Diagnosis: Other fatigue[ICD10: R53.83] Diagnosis: assisted (current) use of anticoagulants[ICD10: Z79.01] Diagnosis: Atrophy of thyroid (acquired)[ICD10: E03.4] Valerie Pisano MD, [facility] CPT-4: 18687 02/09/2017 ([id number]) 30921 EST. 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 PATIENT, LEVEL III Diagnosis: Other acute sinusitis[ICD10: J01.80] Diagnosis: Other allergic rhinitis[ICD10: J30.89] Roxie Pisano MD, [facility] CPT-4: 53634 07/31/2016 ([id number]) 77551 EST. P ATIENT, LEVEL III Diagnosis: Acute recurrent maxillary sinusitis[ICD10: J01.01] Valerie Pisano MD, [facility] CPT-4: 45148 07/22/2016 96028 EST. PATIENT, LEVEL IV Diagnosis: Essential (primary) hypertension[ICD10: I10] Diagnosis: Other allergic rhinitis[ICD10: J30.89] Diagnosis: Localized edema[ICD10: R60.0] Roxie Pisano MD, [facility] CPT-4: 86140 05/01/2016 12637 EST. PATIENT, LEVEL III Diagnosis: Cellulitis of left lower limb[ICD10: L03.116] Diagnosis: Localized edema[ICD10: R60.0] Roxie Pisano MD, [facility] CPT-4: 44517 04/06/2016 ([id number]) Miscellaneou s no charge Diagnosis: Cellulitis of left lower limb[ICD10: L03.116] Diagnosis: Localized edema[ICD10: R60.0] Roxie Pisano MD, [facility] CPT-4: 59668 03/10/2016 ([id number]) Miscellaneou s no charge Diagnosis: Cellulitis of left lower limb[ICD10: L03.116] Roxie Pisano MD, [facility] CPT-4: 03212 03/06/2016 11353 EST. PATIENT, LEVEL IV Diagnosis: Cellulitis of left lower limb[ICD10: L03.116] Diagnosis: Localized edema[ICD10: R60.0] Roxie Pisano MD, [facility] CPT-4: 17116 03/03/2016 ([id number]) 78677 EST. 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 P ATIENT, LEVEL III Diagnosis: Iliotibial band syndrome, right leg[ICD10: M76.31] Diagnosis: Localized edema[ICD10: R60.0] Brielle Pisano MD, [facility] CPT- 4: 91394 12/13/2015 ([id number]) 87765 EST. P ATIENT, LEVEL III Diagnosis: Localized edema[ICD10: R60.0] Diagnosis: Essential (primary) hypertension[ICD10: I10] Brielle Pisano MD, [facility] CPT-4: 99741 12/03/2015 ([id number]) 28833 EST. 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 P ATIENT, LEVEL IV Diagnosis: Localized edema[ICD10: R60.0] Diagnosis: Other specified hypothyroidism[ICD10: E03.8] Diagnosis: Essential (primary) hypertension[ICD10: I10] [facility] CPT-4: 14555 05/31/2015 ([id number]) 16753 EST. P ATIENT, LEVEL III Diagnosis: ALLERGIC RHINITIS[ICD9: 477.9] Diagnosis: ESSENTIAL HYPERTENSION[ICD9: 401.9] [facility]elle [facility] CPT-4: 15278 02/05/2015 ([id number]) OFFICE [facility] LEVEL 4 Diagnosis: ESSENTIAL HYPERTENSION[ICD9: 401.9] Diagnosis: HYPOTHYROIDISM[ICD9: 244.9] Diagnosis: ACTINIC KERATOSIS[ICD9: 702.0] Valerie [facility] CPT-4: 30892 11/20/2014 Plan of Care Planned Activity Notes C odes Status Date Appointment: Brielle Cavazos WPtel: [address] [place], [place] [phone] (15 min) Moderate 07/12/2018 Visit Plan: Hypertension [...] daily. 07/11/2018 [facility]ment: [phone] ([facility] min) Moderate 07/11/2018 Patient Education: [...] given today. 03/24/2018 Appointment: Valerie Pisano WPtel: [facility]5 [facility] (15 min) Moderate 03/24/2018 [...] of control. 11/18/2017 Appointment: Valerie Pisano WPtel: [address] [place], [place] [id number] (15 min) Moderate 11/18/2017 Patient Education: Patient Medication Summary Completed 11/18/2017 Referral: [facility] WPtel: [address] [place], [place] [id number] Pt notified at appointment Appointment Confirmed [...] Unna Boots 09/30/2017 Appointment: Roxie Cazares WPtel: [facility]9 [facility] (30 min) Complex 09/30/2017 Patient Education: Patient Medication Summary Completed 09/30/2017 Care Plan: Referral Order SNOMED-CT : [id number] Pending 09/30/2017 Visit Plan: Hypertension - well [...] time. 08/17/2017 Appointment: [phone] [facility] [place] (15 min) Moderate 08/17/2017 Patient [...] muscles. allergies - kenalog 40mg im bristol [employer] squibb - lot # [id number] expires september 2018 06/15/2017 Visit Plan: Hypertension [...] muscles. 06/15/2017 Appointment: Valerie Pisano WPtel: [phone] [facility] (15 min) Moderate 06/15/2017 Patient Education: Patient Medication Summary Completed 06/15/2017 Care Plan: Referral Order SNOMED-CT : [id number] Pending 06/15/2017 Appointment: Nurse Visit 04/05/2017 Appointment: [...] tetanus booster. 04/01/2017 Appointment: Roxie Cazares WPtel: [phone] [facility] (15 min) Moderate 04/01/2017 [...] shot today 03/16/2017 Appointment: Valerie Pisano WPtel: [phone] [facility] [place] (15 min) Moderate 03/16/2017 Patient Education: [...] allergy spray. 02/09/2017 Appointment: Valerie Pisano WPtel: [address] [place], [place] [address] (15 min) Moderate 02/09/2017 Patient Education: Patient [...] nystatin 10/13/2016 Appointment: Valerie Pisano WPtel: [phone] [facility] (15 min) Moderate 10/13/2016 Patient Education: Patient Medication Summary Completed 10/13/2016 Patient Education: Obesity Completed 10/13/2016 Patient Education: Hypertension Completed 10/13/2016 Care Plan: Urine Culture Pending 08/31/2016 Appointment: Roxie Cazares WPtel: [phone] [facility] Lab Draw 08/27/2016 Appointment: Nurse [...] spray. 07/31/2016 Appointment: Brielle Cavazos WPtel: [phone] [phone] [place] (30 min) Complex 07/31/2016 Patient Education: Patient Medication Summary Completed 07/31/2016 Patient Education: Obesity Completed 07/31/2016 Visit Plan: Sinusitis - Pt has acut e infection - pain in face, maxillary region, Pt informed to use decongestant, RX given to patient, sinus rinses also recommended. Call if symptoms do not show improvement. 07/22/2016 Appointment: [id number] (15 min) Moderate 07/22/2016 Patient Education: [...] edema. 05/01/2016 Appointment: [phone] (30 min) Complex 05/01/2016 Patient Education: [...] edema. 04/06/2016 Appointment: Roxie Cazares [facility]el[phone] (30 min) Complex 04/06/2016 Patient Education: Patient Medication Summary Completed 04/06/2016 Patient Education: Obesity Completed 04/06/2016 Visit Plan: left foot - improved - pt finished with antibiotics - continue to monitor - notify clinic with any concerns. Repeat INR today. 03/10/2016 Appointment: Brielle Cavazos WPtel: [address] [place], [place] [phone] (30 min) Complex 03/10/2016 Patient Education: Patient Medication Summary Completed 03/10/2016 Visit Plan: Cellulitis - continue w ith oral antibiotics as previously directed, return to clinic as previously directed, call for acute change in symptoms, worsening redness, warmth, discharge. 03/06/2016 Appointment: Brielle Cavazos WPtel: [address] [place], [place] [phone] (15 min) Moderate 03/06/2016 Patient Education: Patient Medication Summary Completed 03/06/2016 Patient Education: Obesity Completed 03/06/2016 Visit Plan: Cellulitis - continue w ith oral antibiotics as previously directed, return to clinic as previously directed, call for acute change in symptoms, worsening redness, warmth, discharge. 03/03/2016 Appointment: Brielle Cavazos WPtel: [address] [place], [place] [phone] (15 min) Moderate 03/03/2016 Patient Education: Patient [...] and 3.5. 02/07/2016 Appointment: Brielle Cavazos WPtel: [phone] [phone] (30 min) Complex 02/07/2016 Patient Education: Patient Medication Summary Completed 02/07/2016 Patient Education: Obesity Completed 02/07/2016 Patient Education: Hypertension Completed 02/07/2016 Appointment: Brielle Cavazos WPtel: [facility]8 [phone] (30 min) Complex 02/04/2016 [...] peripheral edema. 12/13/2015 Appointment: Brielle Cavazos WPtel: [facility]1 [facility] [place] [address] (15 min) Moderate 12/13/2015 Patient Education: Patient [...] at home. 12/03/2015 Appointment: Brielle Cavazos WPtel: [facility]4 [phone] (30 min) Complex 12/03/2015 [...] Completed 02/05/2015 Appointment: Val[facility]el[phone] (15 min) Moderate 01/29/2015 Visit Plan: [...] on previous levels of control. 11/20/2014 Appointment: NorrisValerie WPtel: [phone] [facility] [place] ([place]) New Patient 11/20/2014 Patient Education: Patient Medication Summary Completed 11/20/2014 Patient Education: Hypertension Completed 11/20/2014 Patient Education: Patient Medication Summary Completed 10/19/2014 Referral: [facility] WPtel: Referral Appointment Requested Referral: [facility] [place] Referral Appointment Confirmed Instructions Comment CHECK [...] home. . left foot - [facility] ed - pt finished with antibiotics - [...] twice daily. get blood work one w [place] before next appt - fasting labs Decrease [...] muscles. allergies - kenalog 40mg im bristol [employer] squibb - lot # [id number] expires september 2018 . Hypertension - wel [...]
--- OUTSIDE RECORDS SUMMARY | 2019-09-12 11:53 | XMS REPORT | CCD ---
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 Operator Name Role Phone PP Unavailable CCM Unavailable Summary Purpose Interface Exchange Insurance Providers Payer name Policy type / Coverage type Covered constitution party ID Effective Begin Date Effective End Date WPS Medicare Part B Medicare Part B [id number] 2018 Unknown [employer] Medicare Part B [id number] 2018 Unknown Family history Sister Diagnosis Age At Onset defect Unknown Breast cancer Unknown Daughter Diagnosis Age At Onset Breast cancer Unknown Mother Diagnosis Age At Onset No Family Disease Entered N/A Social History Social History Element Codes Description Effective Dates Marital status Unknown M arried Lane 11/20/2014 Number of children Unknown 6 11/20/2014 Employment Unknown Retir ed 11/20/[address]: 3273870 Quit over 10 years ago 1963 11/20/2014 [...] ICD-9: 883.0 ICD-10: S61.218A Active 04/01/2017 Unknown long term acute care registered nurse (current) use of anticoagulants ICD-9: V58.61 ICD-10: [...] encounter ICD-9: 883.0 ICD-10: S61.218A 04/01/2017 Active long term acute care registered nurse (current) use of anticoagulants ICD-9: V58.61 ICD-10: [...] 11/19/2014 Active HYPOTHYROIDISM ICD-9: 244.9 11/19/2014 Active long term acute care registered nurse current us e of anticoagulant therapy ICD-9: V58.61 10/19/2014 Active Medications Medication Codes Instruc tions Start Date Stop Date Sta tus Fill Instructions meclizine 25 mg tablet RxNorm: 203545 1 Tablet(s) PO TID as needed Dizziness 07/19/2018 No Stop Date Active Coumadin 4 mg tablet RxNorm: 813473 1 Tablet(s) PO daily except 1.5 pills on WEDNESDAY AND Wednesday07/11/2018 07/05/2019 Active this is an update to her RX - she will let you know when she needs refill furosemide 40 mg tablet RxNorm: 825902 1 Tablet(s) BID take 1.5 tabs twice a da y x 7 days then 1 pill daily thereafter 07/11/2018 02/05/2019 Active warfarin 5 mg tablet RxNorm: 715449 Tablet(s) TAKE ONE TABLET BY MOUTH DAILY EXCEPT T/TH TAKE 4 MG 04/06/2018 08/22/2019 Active diltiazem 60 mg tablet RxNorm: 741881 1/2 Tablet(s) PO QID 03/24/2018 No Stop Date Active levothyroxine 125 mc g tablet RxNorm: 615329 TAKE ONE TABLET BY MO UTH DAILY ON WEDNESDAY, WED, AND WEDNESDAY, AND 1/2 TABLET ON , , WED AND WEDNESDAY. TAKE ON AN EMPTY STOMACH 02/02/2018 07/31/2018 Active Coumadin 4 mg tablet RxNorm: 417990 TAKE ONE TABLET BY MOUTH DAILY ON AND Wednesday10/14/2017 07/10/2018 Inactive nystatin 100,000 uni t/gram topical cream RxNorm: 366200 1 Application TOP TID 08/17/2017 No Stop Date Active triamcinolone aceton sreekanth 0.025 % topical cream RxNorm: 7880606 1 Application TOP BI D 08/17/2017 No Stop Date Active Voltaren 1 % topical gel RxNorm: 474643 2 Gram(s) TOP TID luiz ly to shoulder and neck 08/17/2017 No Stop Date Active levothyroxine 125 mc g tablet RxNorm: 815785 1 Tablet(s) UD 1 pill wed/wed/wed, 1/2 pill //wed/wed take ON AN EMPTY STOMACH 08/05/2017 02/01/2018 Inactive Coumadin 4 mg tablet RxNorm: 563288 1 Tablet(s) PO Wed/07/29/2017 10/13/2017 Inactive warfarin 5 mg tablet RxNorm: 837616 TAKE 1 AND 1/2 TABLETS BY MOUTH ON AND WEDNESDAY. TAKE ONLY 1 TABLET BY MOUTH ALL OTHER DAYS OF THE WEEK 07/12/2017 04/05/2018 In active furosemide 40 mg tablet RxNorm: 931741 Tablet(s) BID TAKE ONE TABLET BY MOUTH D AILY 06/15/2017 07/10/2018 Inactive Voltaren 1 % topical gel RxNorm: 296506 2 Gram(s) TOP TID luiz ly to shoulder and neck 06/15/2017 08/16/2017 Inactive Keflex 500 mg capsule RxNorm: 142796 1 Capsule(s) PO TID 04/01/2017 04/07/2017 Inactive furosemide 40 mg tablet RxNorm: 126531 TAKE ONE TABLET BY MOUTH DAILY 03/18/2017 06/14/2017 In active Claritin-D 12 Hour 5 mg-120 mg tablet,extended release RxNorm: 6897050 1 Tablet(s) PO BID 03/16/2017 05/14/2017 Inactive Lipitor 20 mg tablet RxNorm: 909507 1 Tablet(s) PO daily 02/09/2017 03/10/2017 Inactive lisinopril 2.5 mg ta blet RxNorm: 039501 1 Tablet(s) PO daily 02/09/2017 03/10/2017 Inactive Nasonex 50 mcg/actua tion [place] RxNorm: 6329638 1 [place] NASAL BID 02/09/2017 09/06/2017 Inactive levothyroxine 125 mc g tablet RxNorm: 346095 1 Tablet(s) UD 1 pill wed/wed/wed, 1/2 pill //sat/sun take ON AN EMPTY STOMACH 02/09/2017 08/04/2017 Inactive fluorouracil 5 % top ical cream RxNorm: 103724 1 Application TOP BID 02/09/2017 02/18/2017 Inactive potassium chloride E R 20 mEq tablet,extended release RxNorm: 127419 Tablet(s) TAKE ONE TABLET BY MOUTH DAILY 02/08/2017 02/02/2018 Inactive warfarin 5 mg tablet RxNorm: 113629 TAKE 1 AND 1/2 TABLETS BY MOUTH ON AND WEDNESDAY. TAKE ONLY 1 TABLET BY MOUTH ALL OTHER DAYS OF THE WEEK 12/14/2016 05/30/2017 In active potassium chloride E R 20 mEq tablet,extended release RxNorm: 592873 TAKE ONE TABLET BY MOUTH DAILY 10/29/2016 01/26/2017 Inactive warfarin 5 mg tablet RxNorm: 563308 TAKE 1 AND 1/2 TABLETS BY MOUTH ON AND WEDNESDAY. TAKE ONLY 1 TABLET BY MOUTH ALL OTHER DAYS OF THE WEEK 10/27/2016 12/13/2016 In active nystatin 100,000 uni t/gram topical cream RxNorm: 567277 1 Application TOP TID 10/13/2016 08/16/2017 In active nitrofurantoin 50 mg capsule RxNorm: 643188 1 Capsule(s) PO BID 09/04/2016 09/03/2016 Inactive nitrofurantoin macro crystal 50 mg capsule RxNorm: 302973 1 Capsule(s) PO BID 09/04/2016 09/10/2016 In active Cipro 500 mg tablet RxNorm: 767868 1 Tablet(s) PO BID 08/26/2016 10/12/2016 Inactive Zyrtec 10 mg tablet RxNorm: 0413658 1 Tablet(s) PO daily 07/31/2016 08/29/2016 Inactive prednisone 20 mg tablet RxNorm: 953470 2 Tablet(s) PO daily 07/31/2016 08/02/2016 Inactive Kenalog 40 mg/mL zohra pension for injection RxNorm: 6124686 Milliliter(s) Inj 07/22/2016 07/22/2016 In active ceftriaxone 500 mg s olution for injection RxNorm: 3048427 Inj 07/22/2016 07/22/2016 Inactive Flonase Allergy Reli ef 50 mcg/actuation nasal spray,suspension RxNorm: 5546713 1 [place] NASAL BID 07/22/2016 08/20/2016 Inactive azithromycin 250 mg tablet RxNorm: 328477 2 Tablet(s) PO on day #1, then 1 pill daily x 4 days 07/22/2016 10/12/2016 Inactive warfarin 5 mg tablet RxNorm: 073935 TAKE 1 AND 1/2 TABLETS BY MOUTH ON AND WEDNESDAY. TAKE ONLY 1 TABLET BY MOUTH ALL OTHER DAYS OF THE WEEK 07/09/2016 09/30/2016 In active levothyroxine 125 mc g tablet RxNorm: 898372 Tablet(s) TAKE ONE TA BLET BY MOUTH DAILY ON AN EMPTY STOMACH 06/23/2016 02/08/2017 Inactive levothyroxine 125 mc g tablet RxNorm: 627853 TAKE ONE TABLET BY MO UT DAILY ON AN EMPTY STOMACH 06/23/2016 06/22/2016 Inactive levothyroxine 125 mc g tablet RxNorm: 075003 TAKE ONE TABLET BY MO UTH DAILY ON AN EMPTY STOMACH 06/23/2016 08/04/2017 Inactive cetirizine 10 mg tablet RxNorm: 1234921 TAKE ONE TABLET BY MOUTH DAILY 06/16/2016 10/13/2016 In active furosemide 40 mg tablet RxNorm: 621175 Tablet(s) TAKE ONE TABLET BY MOUTH DAILY 06/05/2016 12/01/2016 In active cetirizine 10 mg tablet RxNorm: 7615026 1 Tablet(s) PO daily 05/01/2016 05/30/2016 Inactive Levaquin 250 mg tablet RxNorm: 970660 Tablet(s) PO 2 pills day one and 1 pill day 2-7 04/06/2016 07/21/2016 Inactive warfarin 5 mg tablet RxNorm: 005978 Tablet(s) 1/2 TABLETS BY MOUTH ON AND WEDNESDAY. TAKE ONLY 1 TABLET BY MOUTH ALL OTHER DAYS OF THE WEEK 03/18/2016 07/07/2016 In active triamcinolone aceton sreekanth 0.025 % topical cream RxNorm: 7901648 1 Application TOP BI D 03/10/2016 08/16/2017 In active potassium chloride E R 20 mEq tablet,extended release RxNorm: 369046 1 Tablet(s) PO daily 03/04/2016 06/01/2016 Inactive Levaquin 250 mg tablet RxNorm: 331430 Tablet(s) PO 2 pills day one and 1 pill day 2-7 03/04/2016 04/05/2016 Inactive Levaquin 250 mg tablet RxNorm: 980252 Tablet(s) PO 2 pills day one and 1 pill day 2-7 03/03/2016 03/03/2016 Inactive potassium chloride E R 20 mEq tablet,extended release RxNorm: 087128 1 Tablet(s) PO daily 03/03/2016 03/03/2016 Inactive Cipro 500 mg tablet RxNorm: 313541 1 Tablet(s) PO BID 02/20/2016 07/21/2016 Inactive Cipro 500 mg tablet RxNorm: 808706 1 Tablet(s) PO BID 02/20/2016 02/19/2016 Inactive furosemide 40 mg tablet RxNorm: 052647 TAKE ONE TABLET BY MOUTH DAILY 01/27/2016 01/26/2016 In active warfarin 5 mg tablet RxNorm: 650643 TAKE 1 AND 1/2 TABLETS BY MOUTH ON AND WEDNESDAY. TAKE ONLY 1 TABLET BY MOUTH ALL OTHER DAYS OF THE WEEK 01/27/2016 01/26/2016 In active furosemide 40 mg tablet RxNorm: 962726 TAKE ONE TABLET BY MOUTH DAILY 01/27/2016 06/04/2016 In active warfarin 5 mg tablet RxNorm: 408026 TAKE 1 AND 1/2 TABLETS BY MOUTH ON AND WEDNESDAY. TAKE ONLY 1 TABLET BY MOUTH ALL OTHER DAYS OF THE WEEK 01/27/2016 03/17/2016 In active potassium chloride E R 20 mEq tablet,extended release RxNorm: 884309 1 Tablet(s) PO daily 11/20/2015 03/02/2016 Inactive furosemide 40 mg tablet RxNorm: 353469 TAKE ONE TABLET BY MOUTH DAILY 11/12/2015 01/26/2016 In active Zovirax 5 % topical cream RxNorm: 085535 TOP QID 0 09/24/2015 09/23/2015 Inactive Zovirax 5 % topical cream RxNorm: 006698 TOP QID 0 09/24/2015 11/19/2015 Inactive nystatin 100,000 uni t/gram topical cream RxNorm: 130844 1 Application TOP TID 09/17/2015 10/12/2016 In active warfarin 5 mg tablet RxNorm: 351370 TAKE 1 AND 1/2 TABLETS BY MOUTH ON AND WEDNESDAY. TAKE ONLY 1 TABLET BY MOUTH ALL OTHER DAYS OF THE WEEK 08/19/2015 01/05/2016 In active loratadine 10 mg tablet RxNorm: 204640 1 Tablet(s) PO daily 07/30/2015 07/23/2016 Inactive loratadine 10 mg tablet RxNorm: 320103 1 Tablet(s) PO daily 07/30/2015 07/29/2015 Inactive furosemide 40 mg tablet RxNorm: 921777 TAKE ONE TABLET BY MOUTH DAILY 06/24/2015 11/11/2015 In active levothyroxine 125 mc g tablet RxNorm: 502120 1 Tablet(s) PO daily 05/31/2015 05/24/2016 Inactive furosemide 40 mg tablet RxNorm: 115343 1 Tablet(s) PO daily 04/05/2015 06/23/2015 Inactive warfarin 5 mg tablet RxNorm: 512559 TAKE 1 AND 1/2 TABLETS BY MOUTH ON AND WEDNESDAY. TAKE ONLY 1 TABLET BY MOUTH ALL OTHER DAYS OF THE WEEK 02/12/2015 07/29/2015 In active Flonase Allergy Reli ef 50 mcg/actuation nasal spray,suspension RxNorm: 2 [place] NASAL daily 02/05/2015 03/06/2015 Inactive Kenalog 40 mg/mL zohra pension for injection RxNorm: 2472533 Milliliter(s) Inj 02/05/2015 02/05/2015 In active warfarin 5 mg tablet RxNorm: 155092 Take 7.5mg (1 1/2 tablets) Wednesday and and 1 Tablet(s) PO (5mg) all other days 01/11/2015 02/09/2015 Inactive levothyroxine 125 mc g tablet RxNorm: 899731 1 Tablet(s) PO every other day 01/01/2015 05/30/2015 In active alternate with 150 levothyroxine 150 mc g tablet RxNorm: 409894 1 Tablet(s) PO every other day 01/01/2015 05/30/2015 In active alternate with 125 loratadine 10 mg tablet RxNorm: 136043 Tablet(s) PO as needed No Start Date Active Fish Oil 1,000 mg ca psule RxNorm: 1 Capsule(s) PO TID No Start Date Active magnesium 250 mg tablet RxNorm: 1 Tablet(s) PO daily No Start Date Active Vitamin D3 2,000 uni t tablet RxNorm: 280651 2 Tablet(s) PO daily No Start Date Active Fosamax 35 mg tablet RxNorm: 274610 1 Tablet(s) PO QW No Start Date Active levothyroxine 125 mc g tablet RxNorm: 078527 1 Tablet(s) PO daily No Start Date 12/31/2014 Inactive levothyroxine 150 mc g tablet RxNorm: 662058 1 Tablet(s) PO daily No Start Date 12/31/2014 Inactive diltiazem 60 mg tablet RxNorm: 177139 1 Tablet(s) PO QID No Start Date 03/23/2018 Inactive meclizine 25 mg tablet RxNorm: 528900 1 Tablet(s) PO TID as needed Dizziness No Start Date 07/18/2018 Inactive furosemide 40 mg tablet RxNorm: 430961 1 Tablet(s) PO daily No Start Date 04/04/2015 Inactive potassium chloride RxNorm: miscellaneous No Start Date 11/19/2015 Inactive Vitamin D2 oral RxNorm: 4018 oral No Start Date 05/31/2015 Inactive warfarin 5 mg tablet RxNorm: 786662 1 Tablet(s) PO daily No Start Date 01/10/2015 Inactive Coumadin 4 mg tablet RxNorm: 196043 1 Tablet(s) PO Wed/ No Start Date 07/28/2017 Inactive Medication Administered Medication Codes Instruc tions Start Date Status ceftriaxone 500 mg solution for injection RxNorm: 4673088 07/22/2016 No longer A ctive Kenalog 40 mg/mL suspension for injection RxNorm: 5640828 Milliliter 07/22/2016 No longer Active Kenalog 40 mg/mL suspension for injection RxNorm: 6142450 Milliliter 02/05/2015 No longer Active Immunizations Vaccine [...] Hypothyroidism, unspecified ICD-10: E03.9 ICD-9: 244.9 07/11/2018 Chronic atrial fibrillation ICD-10: I48.2 ICD-9: 427.31 07/11/2018 Abnormal results of kidney function studies ICD-10: R94.4 ICD-9: 794.4 06/30/2018 Encounter for immunization ICD-10: Z 23 ICD-9: V03.9 03/24/2018 Other muscle spasm ICD-10: M62.838 ICD-9: 728.85 06/15/2017 Cervicalgia ICD-10: M54.2 ICD-9: 723.1 06/15/2017 Laceration without foreign body of other finger without damage to nail, initial encounter ICD-10: S61.218A ICD-9: 883.0 04/01/2017 long term acute care registered nurse (current) use of anticoagulants ICD-10: Z79.01 ICD-9: [...] 244.9 11/20/2014 ACTINIC KERATOSIS ICD-9: 702.0 11/20/2014 long term acute care registered nurse current use of anticoagulant therapy ICD-9: V58.61 [...] Code Item Item Code Result Date Pt Izu5572 PT 38.6 seconds 07/19/2018 Pt Thy4959 INR 4.0 07/19/2018 Pt Cpy2152 Low Intensity - 1.5-2.0 07/19/2018 Pt Vuv1146 Mod intensity - 2.0-3.0 07/19/2018 Pt Grs3599 Hi intensity - 3.0-4.0 07/19/2018 Pt Zsf9291 PT 25.7 seconds 07/11/2018 Pt Qfr0156 INR 2.4 07/11/2018 Pt Ssn1580 Low Intensity - 1.5-2.0 07/11/2018 Pt Zci0730 Mod intensity - 2.0-3.0 07/11/2018 Pt Kot7113 Hi intensity - 3.0-4.0 07/11/2018 Pt Anh6067 PT 18.5 seconds 07/08/2018 Pt Bml4619 INR 1.6 07/08/2018 Pt Fmk1112 Low Intensity - 1.5-2.0 07/08/2018 Pt Zrd0874 Mod intensity - 2.0-3.0 07/08/2018 Pt Agz7442 Hi intensity - 3.0-4.0 07/08/2018 Pt Bwn5089 PT 27.3 seconds 06/29/2018 Pt Hxb9701 INR 2.6 06/29/2018 Pt Hwx5465 Low Intensity - 1.5-2.0 06/29/2018 Pt Gch5862 Mod intensity - 2.0-3.0 06/29/2018 Pt Dpf9786 Hi intensity - 3.0-4.0 06/29/2018 Pt Jnj3898 PT 24.0 seconds 05/26/2018 Pt Yhv3050 INR 2.2 05/26/2018 Pt Lro7708 Low Intensity - 1.5-2.0 05/26/2018 Pt Xjr4122 Mod intensity - 2.0-3.0 05/26/2018 Pt Idh4950 Hi intensity - 3.0-4.0 05/26/2018 Tsh Ord6 [...] 29.6 pg 03/25/2018 Cbc With Differential Ord2 [place]% 9.5 % 03/25/2018 Cbc With Differential Ord2 [...] 2.19 K/ul 03/25/2018 Cbc With Differential Ord2 [place] ABS# 0.8 K/ul 03/25/2018 Cbc With Differential Ord2 Eos ABS# 0.3 K/ul 03/25/2018 Cbc With Differential Ord2 Baso ABS# 0.0 K/ul 03/25/2018 Lipid Ord30 CHOL 156 mg/dL 03/25/2018 Lipid Ord30 HDL 52.0 mg/dl 03/25/2018 Lipid Ord30 TRIG 98 mg/dL 03/25/2018 Lipid Ord30 LDL 84 mg/dL 03/25/2018 Lipid Ord30 C/HDL 3.0 Ratio 03/25/2018 Free T4 Gnf861 FREE T4 1.73 ng/dL 03/25/2018 Comp Metabolic Nal032 NA 143 mEq/L 03/25/2018 Comp Metabolic Zfa259 K 4.6 mEq/L 03/25/2018 Comp Metabolic Jnl719 CL 108 mEq/L 03/25/2018 Comp Metabolic Tnl151 CO2 26.0 mEq/L 03/25/2018 Comp Metabolic Pic950 AN ION GAP 14 03/25/2018 Comp Metabolic Krt707 GL UCOSE 87 mg/dL 03/25/2018 Comp Metabolic Lan992 Cr eat 1.2 mg/dL 03/25/2018 Comp Metabolic Hli340 eG FR 48 ml/min/1.73m2 03/25 Comp Metabolic Zan110 BUN 18 mg/dL 03/25/2018 Comp Metabolic Gai683 B/ C Ratio 15.5 Ratio 03/25/2018 Comp Metabolic Qky227 CA LCIUM 9.1 mg/dL 03/25/2018 Comp Metabolic Ffc621 AL K PHOS 58 U/L 03/25/2018 Comp Metabolic Ekr613 T(SGOT) 21 U/L 03/25/2018 Comp Metabolic Jpr491 AL T(SGPT) 13 U/L 03/25/2018 Comp Metabolic Nwe642 BI LI T 0.7 mg/dL 03/25/2018 Comp Metabolic Rsh568 AL BUMIN 3.2 g/dL 03/25/2018 Comp Metabolic Lhv427 TP RO 5.5 g/dL 03/25/2018 Comp Metabolic Qlx621 GL OB 2.3 g/dL 03/25/2018 Comp Metabolic Rjx267 A/ G Ratio 1.4 Ratio 03/25/2018 Comp Metabolic Xtw432 Os mo 286 mOsmo 03/25/2018 Pt Ngx8067 PT 29.0 seconds 03/22/2018 Pt Hxk6713 INR 2.7 03/22/2018 Pt Oek7035 Low Intensity - 1.5-2.0 03/22/2018 Pt Wya3874 Mod intensity - 2.0-3.0 03/22/2018 Pt Wse1524 Hi intensity - 3.0-4.0 03/22/2018 Pt Von1780 PT 27.1 seconds 02/25/2018 Pt Mpg8862 INR 2.5 02/25/2018 Pt Tzz3973 Low Intensity - 1.5-2.0 02/25/2018 Pt Dtg5654 Mod intensity - 2.0-3.0 02/25/2018 Pt Evf5849 Hi intensity - 3.0-4.0 02/25/2018 Pt Scz8470 PT 26.1 seconds 01/26/2018 Pt Fmr0624 INR 2.4 01/26/2018 Pt Gun5458 Low Intensity - 1.5-2.0 01/26/2018 Pt Smc5033 Mod intensity - 2.0-3.0 01/26/2018 Pt Wyw3616 Hi intensity - 3.0-4.0 01/26/2018 Pt Qyg6573 PT 22.8 seconds 12/24/2017 Pt Hss3361 INR 2.0 12/24/2017 Pt Ktv3849 Low Intensity - 1.5-2.0 12/24/2017 Pt Ynn0731 Mod intensity - 2.0-3.0 12/24/2017 Pt Nfr0008 Hi intensity - 3.0-4.0 12/24/2017 Pt Ktt5697 PT 29.4 seconds 11/18/2017 Pt Czj9890 INR 2.8 11/18/2017 Pt Tfo9878 Low Intensity - 1.5-2.0 11/18/2017 Pt Dzm9344 Mod intensity - 2.0-3.0 11/18/2017 Pt Mxv2792 Hi intensity - 3.0-4.0 11/18/2017 Pt Oxt1872 PT 26.6 seconds 09/13/2017 Pt Xef8056 INR 2.4 09/13/2017 Pt Her5391 Low Intensity - 1.5-2.0 09/13/2017 Pt Zhu6983 Mod intensity - 2.0-3.0 09/13/2017 Pt Egb2234 Hi intensity - 3.0-4.0 09/13/2017 Pt Xpm8175 PT 28.2 seconds 08/10/2017 Pt Ncr9566 INR 2.6 08/10/2017 Pt Rrm6079 Low Intensity - 1.5-2.0 08/10/2017 Pt Nmn9083 Mod intensity - 2.0-3.0 08/10/2017 Pt Npl9633 Hi intensity - 3.0-4.0 08/10/2017 Pt Tmu5287 PT 33.9 seconds 07/27/2017 Pt Few8685 INR 3.3 07/27/2017 Pt Zrk5991 Low Intensity - 1.5-2.0 07/27/2017 Pt Nqu9167 Mod intensity - 2.0-3.0 07/27/2017 Pt Qug2277 Hi intensity - 3.0-4.0 07/27/2017 Pt Tee7747 PT 29.1 seconds 06/29/2017 Pt Qfa9823 INR 2.7 06/29/2017 Pt Zyp6270 Low Intensity - 1.5-2.0 06/29/2017 Pt Cce4368 Mod intensity - 2.0-3.0 06/29/2017 Pt Svs2934 Hi intensity - 3.0-4.0 06/29/2017 Pt Ctd2428 PT 30.3 seconds 06/11/2017 Pt Neh2292 INR 2.9 06/11/2017 Pt Etw9587 Low Intensity - 1.5-2.0 06/11/2017 Pt Scz9785 Mod intensity - 2.0-3.0 06/11/2017 Pt Amn7630 Hi intensity - 3.0-4.0 06/11/2017 Pt Qzf6171 PT 39.1 seconds 06/07/2017 Pt Lih2225 INR 3.9 06/07/2017 Pt Hyw6659 Low Intensity - 1.5-2.0 06/07/2017 Pt Lsm2841 Mod intensity - 2.0-3.0 06/07/2017 Pt Jyp8415 Hi intensity - 3.0-4.0 06/07/2017 Pt Duq4781 PT 34.2 seconds 05/26/2017 Pt Zqs1405 INR 3.3 05/26/2017 Pt Rwg7144 Low Intensity - 1.5-2.0 05/26/2017 Pt Lcl1101 Mod intensity - 2.0-3.0 05/26/2017 Pt Sdp8967 Hi intensity - 3.0-4.0 05/26/2017 Comp Metabolic Lgc933 NA 138 mEq/L 04/23/2017 Comp Metabolic Cnf217 K 4.2 mEq/L 04/23/2017 Comp Metabolic Cow904 CL 101 mEq/L 04/23/2017 Comp Metabolic Ott233 CO2 28.0 mEq/L 04/23/2017 Comp Metabolic Sti614 AN ION GAP 13 04/23/2017 Comp Metabolic Ftd989 GL UCOSE 89 mg/dL 04/23/2017 Comp Metabolic Gfj605 Cr eat 1.1 mg/dL 04/23/2017 Comp Metabolic Qbd121 eG FR 51 ml/min/1.73m2 04/23 Comp Metabolic Dwj403 BUN 26 mg/dL 04/23/2017 Comp Metabolic Rwq998 B/ C Ratio 23.9 Ratio 04/23/2017 Comp Metabolic Pku676 CA LCIUM 9.4 mg/dL 04/23/2017 Comp Metabolic Qee965 AL K PHOS 95 U/L 04/23/2017 Comp Metabolic Rdi566 T(SGOT) 18 U/L 04/23/2017 Comp Metabolic Kew185 AL T(SGPT) 17 U/L 04/23/2017 Comp Metabolic Lhm096 BI LI T 0.7 mg/dL 04/23/2017 Comp Metabolic Eyi097 AL BUMIN 3.2 g/dL 04/23/2017 Comp Metabolic Oke749 TP RO 5.6 g/dL 04/23/2017 Comp Metabolic Vlj617 GL OB 2.4 g/dL 04/23/2017 Comp Metabolic Waq132 A/ G Ratio 1.3 Ratio 04/23/2017 Comp Metabolic Jen916 Os mo 280 mOsmo 04/23/2017 Pt Tyq7495 PT 28.6 seconds 04/23/2017 Pt Iks8166 INR 2.7 04/23/2017 Pt Iin1824 Low Intensity - 1.5-2.0 04/23/2017 Pt Hza2532 Mod intensity - 2.0-3.0 04/23/2017 Pt Oex2426 Hi intensity - 3.0-4.0 04/23/2017 Pt Qci8517 PT 24.4 seconds 03/16/2017 Pt Ipi3006 INR 2.2 03/16/2017 Pt Cen5182 Low Intensity - 1.5-2.0 03/16/2017 Pt Ocj5594 Mod intensity - 2.0-3.0 03/16/2017 Pt Kgk5391 Hi intensity - 3.0-4.0 03/16/2017 Pt Zid7528 PT 28.2 seconds 02/24/2017 Pt Ggw1187 INR 2.6 02/24/2017 Pt Cvv6502 Low Intensity - 1.5-2.0 02/24/2017 Pt Xkp3395 Mod intensity - 2.0-3.0 02/24/2017 Pt Fjr3092 Hi intensity - 3.0-4.0 02/24/2017 Pt Ebw1692 PT 26.8 seconds 02/08/2017 Pt Ybs8100 INR 2.5 02/08/2017 Pt Fnu6051 Low Intensity - 1.5-2.0 02/08/2017 Pt Bca5023 Mod intensity - 2.0-3.0 02/08/2017 Pt Stt0715 Hi intensity - 3.0-4.0 02/08/2017 Lipid Ord30 CHOL 150 mg/dL 01/25/2017 Lipid Ord30 HDL 55.0 mg/dl 01/25/2017 Lipid Ord30 TRIG 66 mg/dL 01/25/2017 Lipid Ord30 LDL 82 mg/dL 01/25/2017 Lipid Ord30 C/HDL 2.7 Ratio 01/25/2017 Pt Won2392 PT 29.9 seconds 01/25/2017 Pt But4359 INR 2.8 01/25/2017 Pt Rfc1465 Low Intensity - 1.5-2.0 01/25/2017 Pt Opk0549 Mod intensity - 2.0-3.0 01/25/2017 Pt Kgq2934 Hi intensity - 3.0-4.0 01/25/2017 Comp Metabolic Eud755 NA 143 mEq/L 01/25/2017 Comp Metabolic Xbv896 K 3.9 mEq/L 01/25/2017 Comp Metabolic Ngs638 CL 108 mEq/L 01/25/2017 Comp Metabolic Agc159 CO2 23.0 mEq/L 01/25/2017 Comp Metabolic Isa878 AN ION GAP 16 01/25/2017 Comp Metabolic Ced005 GL UCOSE 80 mg/dL 01/25/2017 Comp Metabolic Anj721 Cr eat 1.0 mg/dL 01/25/2017 Comp Metabolic Tww827 eG FR 57 ml/min/1.73m2 01/25 Comp Metabolic Dnz467 BUN 25 mg/dL 01/25/2017 Comp Metabolic Vqj167 B/ C Ratio 25.0 Ratio 01/25/2017 Comp Metabolic Mzm289 CA LCIUM 8.5 mg/dL 01/25/2017 Comp Metabolic Vtp502 AL K PHOS 81 U/L 01/25/2017 Comp Metabolic Vzk230 T(SGOT) 19 U/L 01/25/2017 Comp Metabolic Vvg441 AL T(SGPT) 23 U/L 01/25/2017 Comp Metabolic Vyc566 BI LI T 0.5 mg/dL 01/25/2017 Comp Metabolic Rom393 AL BUMIN 2.9 g/dL 01/25/2017 Comp Metabolic Ygs642 TP RO 5.1 g/dL 01/25/2017 Comp Metabolic Pkr737 GL OB 2.2 g/dL 01/25/2017 Comp Metabolic Vml474 A/ G Ratio 1.3 Ratio 01/25/2017 Comp Metabolic Lze052 Os mo 288 mOsmo 01/25/2017 Cbc With [...] 30.7 pg 01/25/2017 Cbc With Differential Ord2 [place]% 8.2 % 01/25/2017 Cbc With Differential Ord2 [...] 3.10 K/ul 01/25/2017 Cbc With Differential Ord2 [place] ABS# 0.8 K/ul 01/25/2017 Cbc With Differential Ord2 Eos ABS# 0.4 K/ul 01/25/2017 Cbc With Differential Ord2 Baso ABS# 0.1 K/ul 01/25/2017 Free T4 Lay464 FREE T4 2.09 ng/dL 01/25/2017 Tsh Ord6 hTSH II 0.46 uIU/mL 01/25/2017 Pt Elj0376 PT 26.1 seconds 11/26/2016 Pt Smn3496 INR 2.6 11/26/2016 Pt Nli8957 Low Intensity - 1.5-2.0 11/26/2016 Pt Pba0803 Mod intensity - 2.0-3.0 11/26/2016 Pt Dzd1389 Hi intensity - 3.0-4.0 11/26/2016 Pt Ixx5282 PT 26.2 seconds 10/29/2016 Pt Hlv4988 INR 2.6 10/29/2016 Pt Ztu1620 Low Intensity - 1.5-2.0 10/29/2016 Pt Nhi7016 Mod intensity - 2.0-3.0 10/29/2016 Pt Pgt1731 Hi intensity - 3.0-4.0 10/29/2016 Pt Rgu4242 PT 20.8 seconds 10/13/2016 Pt Puk0291 INR 1.9 10/13/2016 Pt Xqe5458 Low Intensity - 1.5-2.0 10/13/2016 Pt Jey8504 Mod intensity - 2.0-3.0 10/13/2016 Pt Had0960 Hi intensity - 3.0-4.0 10/13/2016 Pt Scm5995 PT 26.5 seconds 10/01/2016 Pt Ecs8538 INR 2.6 10/01/2016 Pt Bwy8060 Low Intensity - 1.5-2.0 10/01/2016 Pt Xkt4595 Mod intensity - 2.0-3.0 10/01/2016 Pt Fzl6415 Hi intensity - 3.0-4.0 10/01/2016 Pt Zwv2098 PT 24.6 seconds 09/14/2016 Pt Lxq4679 INR 2.4 09/14/2016 Pt Vjf4257 Low Intensity - 1.5-2.0 09/14/2016 Pt Lyx7966 Mod intensity - 2.0-3.0 09/14/2016 Pt Ayk1475 Hi intensity - 3.0-4.0 09/14/2016 Pt Kgz1400 PT 18.0 seconds 09/07/2016 Pt Ouj6580 INR 1.6 09/07/2016 Pt Kfy7498 Low Intensity - 1.5-2.0 09/07/2016 Pt Tdx7926 Mod intensity - 2.0-3.0 09/07/2016 Pt Adw8170 Hi intensity - 3.0-4.0 09/07/2016 Pt Iqh6204 PT 23.7 seconds 08/12/2016 Pt Jhu1464 INR 2.2 08/12/2016 Pt Hoo9229 Low Intensity - 1.5-2.0 08/12/2016 Pt Eim6041 Mod intensity - 2.0-3.0 08/12/2016 Pt Jnz5892 Hi intensity - 3.0-4.0 08/12/2016 Pt Ocg9548 PT 21.6 seconds 07/27/2016 Pt Uam8329 INR 2.0 07/27/2016 Pt Sqq8231 Low Intensity - 1.5-2.0 07/27/2016 Pt Pqs8873 Mod intensity - 2.0-3.0 07/27/2016 Pt Jth8457 Hi intensity - 3.0-4.0 07/27/2016 Pt Ghb7975 PT 26.0 seconds 06/15/2016 Pt Dgz2316 INR 2.5 06/15/2016 Pt Tqm2510 Low Intensity - 1.5-2.0 06/15/2016 Pt Nbe5179 Mod intensity - 2.0-3.0 06/15/2016 Pt Ean2019 Hi intensity - 3.0-4.0 06/15/2016 Pt Swk0462 PT 18.8 seconds 06/01/2016 Pt Qpk8719 INR 1.7 06/01/2016 Pt Hjz6281 Low Intensity - 1.5-2.0 06/01/2016 Pt Qul3071 Mod intensity - 2.0-3.0 06/01/2016 Pt Ofo3105 Hi intensity - 3.0-4.0 06/01/2016 Pt Lvj9038 PT 20.8 seconds 05/12/2016 Pt Tjm0091 INR 1.9 05/12/2016 Pt Xbf7892 Low Intensity - 1.5-2.0 05/12/2016 Pt Jdh8641 Mod intensity - 2.0-3.0 05/12/2016 Pt Fei2713 Hi intensity - 3.0-4.0 05/12/2016 Pt Uqa3043 PT 24.5 seconds 04/10/2016 Pt Iov4688 INR 2.4 04/10/2016 Pt Wkf5662 Low Intensity - 1.5-2.0 04/10/2016 Pt Hqb0085 Mod intensity - 2.0-3.0 04/10/2016 Pt Uit2882 Hi intensity - 3.0-4.0 04/10/2016 Pt Nsm3431 PT 26.4 seconds 03/10/2016 Pt Dhg3960 INR 2.6 03/10/2016 Pt Rdz7673 Low Intensity - 1.5-2.0 03/10/2016 Pt Okr4827 Mod intensity - 2.0-3.0 03/10/2016 Pt Kot1366 Hi intensity - 3.0-4.0 03/10/2016 Pt Lbj6206 PT 24.9 seconds 03/06/2016 Pt Zok4026 INR 2.4 03/06/2016 Pt Yoo9727 Low Intensity - 1.5-2.0 03/06/2016 Pt Cvk1737 Mod intensity - 2.0-3.0 03/06/2016 Pt Iqt3841 Hi intensity - 3.0-4.0 03/06/2016 Pt Qms7662 PT 21.9 seconds 02/25/2016 Pt Zjc2384 INR 2.0 02/25/2016 Pt Bis7101 Low Intensity - 1.5-2.0 02/25/2016 Pt Yol3080 Mod intensity - 2.0-3.0 02/25/2016 Pt Lqb3281 Hi intensity - 3.0-4.0 02/25/2016 Pt Vfo5165 PT 21.8 seconds 02/21/2016 Pt Ueq7377 INR 2.0 02/21/2016 Pt Gsm2903 Low Intensity - 1.5-2.0 02/21/2016 Pt Ehc6780 Mod intensity - 2.0-3.0 02/21/2016 Pt Tck9421 Hi intensity - 3.0-4.0 02/21/2016 Culture Urine [id number] URI NE CULTURE SEE NOTES 02/20/2016 Culture Urine [id number] Con tinued Results 02/20/2016 Urine Culture Ucult [...] 29.2 pg 02/14/2016 Cbc With Differential Ord2 [place]% 9.3 % 02/14/2016 Cbc With Differential Ord2 [...] 2.55 K/ul 02/14/2016 Cbc With Differential Ord2 [place] ABS# 0.8 K/ul 02/14/2016 Cbc With Differential Ord2 Eos ABS# 0.4 K/ul 02/14/2016 Cbc With Differential Ord2 Baso ABS# 0.1 K/ul 02/14/2016 Tsh Ord6 hTSH II 0.80 uIU/mL 02/14/2016 Pt Maa7336 PT 27.1 seconds 02/14/2016 Pt Rkd1745 INR 2.7 02/14/2016 Pt Iwt2276 Low Intensity - 1.5-2.0 02/14/2016 Pt Zxg6636 Mod intensity - 2.0-3.0 02/14/2016 Pt Xnh2863 Hi intensity - 3.0-4.0 02/14/2016 Free T4 Wlh820 FREE T4 1.87 ng/dL 02/14/2016 Comp Metabolic Jkc513 NA 139 mEq/L 02/14/2016 Comp Metabolic Xgx503 K 3.8 mEq/L 02/14/2016 Comp Metabolic Kpu270 CL 103 mEq/L 02/14/2016 Comp Metabolic Dsz764 CO2 27.0 mEq/L 02/14/2016 Comp Metabolic Dpz365 AN ION GAP 13 02/14/2016 Comp Metabolic Kif433 GL UCOSE 91 mg/dL 02/14/2016 Comp Metabolic Gnq133 Cr eat 1.0 mg/dL 02/14/2016 Comp Metabolic Ias883 eG FR 58 ml/min/1.73m2 02/13 Comp Metabolic Tbi469 BUN 16 mg/dL 02/14/2016 Comp Metabolic Ozy211 B/ C Ratio 16.2 Ratio 02/14/2016 Comp Metabolic Nff929 CA LCIUM 9.0 mg/dL 02/14/2016 Comp Metabolic Vwo407 AL K PHOS 88 U/L 02/14/2016 Comp Metabolic Ooi413 T(SGOT) 17 U/L 02/14/2016 Comp Metabolic Ifc654 AL T(SGPT) 12 U/L 02/14/2016 Comp Metabolic Gzh750 BI LI T 0.6 mg/dL 02/14/2016 Comp Metabolic Luy197 AL BUMIN 3.2 g/dL 02/14/2016 Comp Metabolic Uki535 TP RO 5.8 g/dL 02/14/2016 Comp Metabolic Lsr145 GL OB 2.6 g/dL 02/14/2016 Comp Metabolic Ohj002 A/ G Ratio 1.3 Ratio 02/14/2016 Comp Metabolic Rsi302 Os mo 278 mOsmo 02/14/2016 Pt Vqh7054 PT 34.6 seconds 02/06/2016 Pt Upt9740 INR 3.7 02/06/2016 Pt Plo9552 Low Intensity - 1.5-2.0 02/06/2016 Pt Khq0417 Mod intensity - 2.0-3.0 02/06/2016 Pt Yqn8797 Hi intensity - 3.0-4.0 02/06/2016 Pt Jnw9819 PT 33.3 seconds 01/23/2016 Pt Qba0531 INR 3.5 01/23/2016 Pt Izh3322 Low Intensity - 1.5-2.0 01/23/2016 Pt Kgu2639 Mod intensity - 2.0-3.0 01/23/2016 Pt Dip7865 Hi intensity - 3.0-4.0 01/23/2016 Pt Ngf2487 PT 30.5 seconds 12/31/2015 Pt Lxa5787 INR 3.2 12/31/2015 Pt Guz0840 Low Intensity - 1.5-2.0 12/31/2015 Pt Fqc6215 Mod intensity - 2.0-3.0 12/31/2015 Pt Vln6555 Hi intensity - 3.0-4.0 12/31/2015 Pt Vjt7929 PT 35.6 seconds 12/25/2015 Pt Yyz0242 INR 3.9 12/25/2015 Pt Cgo4903 Low Intensity - 1.5-2.0 12/25/2015 Pt Stq2597 Mod intensity - 2.0-3.0 12/25/2015 Pt Gzj4906 Hi intensity - 3.0-4.0 12/25/2015 Pt Mtv5658 PT 30.8 seconds 11/21/2015 Pt Qqu2774 INR 3.2 11/21/2015 Pt Wpg3094 Low Intensity - 1.5-2.0 11/21/2015 Pt Yka9794 Mod intensity - 2.0-3.0 11/21/2015 Pt Woj0504 Hi intensity - 3.0-4.0 11/21/2015 Uric Acid [...] 23.3 % 11/20/2015 Cbc With Differential Ord2 [place]% 8.1 % 11/20/2015 Cbc With Differential Ord2 MCH 30.0 pg 11/20/2015 Cbc With Differential Ord2 Eos% 2.7 % 11/20/2015 Cbc With Differential Ord2 MCHC 31.4 pg 11/20/2015 Cbc With Differential Ord2 PLT 413 K/ul 11/20/2015 Cbc With Differential Ord2 Baso% 0.4 % 11/20/2015 Cbc With Differential Ord2 Neut ABS# 7.05 K/ul 11/20/2015 Cbc With Differential Ord2 RDW 17.4 % 11/20/2015 Cbc With Differential Ord2 Lymph ABS# 2.51 K/ul 11/20/2015 Cbc With Differential Ord2 [place] ABS# 0.9 K/ul 11/20/2015 Cbc With Differential Ord2 Eos ABS# 0.3 K/ul 11/20/2015 Cbc With Differential Ord2 Baso ABS# 0.0 K/ul 11/20/2015 Comp Metabolic Htd385 NA 137 mEq/L 10/22/2015 Comp Metabolic Yjr212 K 3.9 mEq/L 10/22/2015 Comp Metabolic Uhl137 CL 100 mEq/L 10/22/2015 Comp Metabolic Yvt053 CO2 31.0 mEq/L 10/22/2015 Comp Metabolic Hjr010 AN ION GAP 10 10/22/2015 Comp Metabolic Rzl409 GL UCOSE 94 mg/dL 10/22/2015 Comp Metabolic Jun246 Cr eat 1.0 mg/dL 10/22/2015 Comp Metabolic Hbc395 eG FR 55 ml/min/1.73m2 10/21 Comp Metabolic Rwh187 BUN 19 mg/dL 10/22/2015 Comp Metabolic Wrf571 B/ C Ratio 18.3 Ratio 10/22/2015 Comp Metabolic Mec782 CA LCIUM 8.8 mg/dL 10/22/2015 Comp Metabolic Vah721 AL K PHOS 83 U/L 10/22/2015 Comp Metabolic Lqe898 T(SGOT) 15 U/L 10/22/2015 Comp Metabolic Fav495 AL T(SGPT) 13 U/L 10/22/2015 Comp Metabolic Krf657 BI LI T 0.9 mg/dL 10/22/2015 Comp Metabolic Oio381 AL BUMIN 2.8 g/dL 10/22/2015 Comp Metabolic Wou303 TP RO 5.4 g/dL 10/22/2015 Comp Metabolic Fat611 GL OB 2.6 g/dL 10/22/2015 Comp Metabolic Ylt820 A/ G Ratio 1.1 Ratio 10/22/2015 Comp Metabolic Rea550 Os mo 276 mOsmo 10/22/2015 Bili D Ord93 BILI D 0.1 mg/dL 10/22/2015 Bili D Ord93 BILI I 0.8 mg/dL 10/22/2015 Pt Dom1220 PT 22.8 seconds 10/22/2015 Pt Ddx0984 INR 2.1 10/22/2015 Pt Jqq7369 Low Intensity - 1.5-2.0 10/22/2015 Pt Yqc6490 Mod intensity - 2.0-3.0 10/22/2015 Pt Jws4325 Hi intensity - 3.0-4.0 10/22/2015 Pt Ioy2722 PT 28.0 seconds 09/16/2015 Pt Ntx7165 INR 2.7 09/16/2015 Pt Vsa1690 Low Intensity - 1.5-2.0 09/16/2015 Pt Uud4578 Mod intensity - 2.0-3.0 09/16/2015 Pt Naz5901 Hi intensity - 3.0-4.0 09/16/2015 Tsh Ord6 hTSH II 1.40 uIU/mL 09/16/2015 Free T4 Vyz384 FREE T4 1.73 ng/dL 09/16/2015 Lipid Ord30 CHOL 169 mg/dL 09/16/2015 Lipid Ord30 HDL 66.0 mg/dl 09/16/2015 Lipid Ord30 TRIG 78 mg/dL 09/16/2015 Lipid Ord30 LDL 87 mg/dL 09/16/2015 Lipid Ord30 C/HDL 2.6 Ratio 09/16/2015 Pt Yko0698 PT 26.6 seconds 08/21/2015 Pt Egv8139 INR 2.6 08/21/2015 Pt Yun1018 Low Intensity - 1.5-2.0 08/21/2015 Pt Wdc8668 Mod intensity - 2.0-3.0 08/21/2015 Pt Ggy3486 Hi intensity - 3.0-4.0 08/21/2015 Comp Metabolic Qrv875 NA 141 mEq/L 08/08/2015 Comp Metabolic Bix288 K 3.3 mEq/L 08/08/2015 Comp Metabolic Pun531 CL 102 mEq/L 08/08/2015 Comp Metabolic Vrc474 CO2 31.0 mEq/L 08/08/2015 Comp Metabolic Xxd231 AN ION GAP 11 08/08/2015 Comp Metabolic Vyi774 GL UCOSE 83 mg/dL 08/08/2015 Comp Metabolic Lrc615 Cr eat 1.0 mg/dL 08/08/2015 Comp Metabolic Tqc583 eG FR 55 ml/min/1.73m2 08/08 Comp Metabolic Tav072 BUN 19 mg/dL 08/08/2015 Comp Metabolic Lpi971 B/ C Ratio 18.3 Ratio 08/08/2015 Comp Metabolic Mna181 CA LCIUM 8.9 mg/dL 08/08/2015 Comp Metabolic Kcy888 AL K PHOS 84 U/L 08/08/2015 Comp Metabolic Zdb714 T(SGOT) 20 U/L 08/08/2015 Comp Metabolic Ysa531 AL T(SGPT) 18 U/L 08/08/2015 Comp Metabolic Fil600 BI LI T 0.6 mg/dL 08/08/2015 Comp Metabolic Wnt742 AL BUMIN 3.3 g/dL 08/08/2015 Comp Metabolic Fyg144 TP RO 5.9 g/dL 08/08/2015 Comp Metabolic Wfl755 GL OB 2.6 g/dL 08/08/2015 Comp Metabolic Ycs376 A/ G Ratio 1.3 Ratio 08/08/2015 Comp Metabolic Xpw224 Os mo 283 mOsmo 08/08/2015 Cbc With Differential Ord2 WBC 10.67 K/ul 08/08/2015 Cbc With Differential Ord2 RBC 4.77 M/ul 08/08/2015 Cbc With Differential Ord2 HGB 14.3 g/dl 08/08/2015 Cbc With Differential Ord2 HCT 43.7 % 08/08/2015 Cbc With Differential Ord2 Neut% 60.4 % 08/08/2015 Cbc With Differential Ord2 Lymph% 27.2 % 08/08/2015 Cbc With Differential Ord2 MCV 91.6 fl 08/08/2015 Cbc With Differential Ord2 MCH 30.0 pg 08/08/2015 Cbc With Differential Ord2 [place]% 8.2 % 08/08/2015 Cbc With Differential Ord2 [...] 2.90 K/ul 08/08/2015 Cbc With Differential Ord2 [place] ABS# 0.9 K/ul 08/08/2015 Cbc With Differential [...] Ord93 BILI I 0.5 mg/dL 08/08/2015 Pt Zws5571 PT 31.8 seconds 08/05/2015 Pt Gnw7705 INR 3.2 08/05/2015 Pt Bri9813 Low Intensity - 1.5-2.0 08/05/2015 Pt Llp1380 Mod intensity - 2.0-3.0 08/05/2015 Pt Sxx5475 Hi intensity - 3.0-4.0 08/05/2015 Pt Sfa6678 PT 27.4 seconds 06/27/2015 Pt Xar9641 INR 2.6 06/27/2015 Pt Fld5810 Low Intensity - 1.5-2.0 06/27/2015 Pt Nye3607 Mod intensity - 2.0-3.0 06/27/2015 Pt Onf4355 Hi intensity - 3.0-4.0 06/27/2015 Tsh Ord6 [...] Ord2 RDW 15.1 % 05/31/2015 Free T4 Ewe414 FREE T4 1.89 ng/dL 05/31/2015 Comp Metabolic Tqb571 NA 140 mEq/L 05/31/2015 Comp Metabolic Coz000 K 3.3 mEq/L 05/31/2015 Comp Metabolic Hdu963 CL 99 mEq/L 05/31/2015 Comp Metabolic Jha824 CO2 30.0 mEq/L 05/31/2015 Comp Metabolic Uym110 AN ION GAP 14 05/31/2015 Comp Metabolic Tmj256 GL UCOSE 70 mg/dL 05/31/2015 Comp Metabolic Uge818 Cr eat 1.0 mg/dL 05/31/2015 Comp Metabolic Pkw799 eG FR 55 ml/min/1.73m2 05/31 Comp Metabolic Coh607 BUN 23 mg/dL 05/31/2015 Comp Metabolic Bsk749 B/ C Ratio 22.1 Ratio 05/31/2015 Comp Metabolic Qne112 CA LCIUM 8.9 mg/dL 05/31/2015 Comp Metabolic Dga168 AL K PHOS 86 U/L 05/31/2015 Comp Metabolic Dym523 T(SGOT) 28 U/L 05/31/2015 Comp Metabolic Xeu477 AL T(SGPT) 30 U/L 05/31/2015 Comp Metabolic Xem789 BI LI T 0.4 mg/dL 05/31/2015 Comp Metabolic Ifl019 AL BUMIN 3.3 g/dL 05/31/2015 Comp Metabolic Ofh572 TP RO 6.0 g/dL 05/31/2015 Comp Metabolic Kwy464 GL OB 2.7 g/dL 05/31/2015 Comp Metabolic Tqp082 A/ G Ratio 1.2 Ratio 05/31/2015 Comp Metabolic Kvs751 Os mo 282 mOsmo 05/31/2015 Pt Aaw8809 PT 23.3 seconds 04/15/2015 Pt Hwj1957 INR 2.2 04/15/2015 Pt Rkb3001 Low Intensity - 1.5-2.0 04/15/2015 Pt Vos9660 Mod intensity - 2.0-3.0 04/15/2015 Pt Kwu1536 Hi intensity - 3.0-4.0 04/15/2015 Pt Ten1832 PT 19.5 seconds 04/04/2015 Pt Kfh2734 INR 1.7 04/04/2015 Pt Ely7086 Low Intensity - 1.5-2.0 04/04/2015 Pt Rrq2340 Mod intensity - 2.0-3.0 04/04/2015 Pt Aix6850 Hi intensity - 3.0-4.0 04/04/2015 Pt Rgn1636 PT 39.8 seconds 04/01/2015 Pt Emn8431 INR 4.3 04/01/2015 Pt Qcp0601 Low Intensity - 1.5-2.0 04/01/2015 Pt Qgy2888 Mod intensity - 2.0-3.0 04/01/2015 Pt Ume9577 Hi intensity - 3.0-4.0 04/01/2015 Metabolic Ord15 [...] Metabolic Ord15 CALCIUM 8.7 mg/dL 02/28/2015 Pt Vlg5337 PT 31.4 seconds 02/28/2015 Pt Fip5809 INR 3.2 02/28/2015 Pt Bio5106 Low Intensity - 1.5-2.0 02/28/2015 Pt Wxv6715 Mod intensity - 2.0-3.0 02/28/2015 Pt Coz0167 Hi intensity - 3.0-4.0 02/28/2015 Pt Gpz0585 PT 23.2 seconds 01/18/2015 Pt Pgo8177 INR 2.1 01/18/2015 Pt Iqx1930 Low Intensity - 1.5-2.0 01/18/2015 Pt Lie8842 Mod intensity - 2.0-3.0 01/18/2015 Pt Cuc3802 Hi intensity - 3.0-4.0 01/18/2015 Pt Xav2249 PT 18.2 seconds 01/10/2015 Pt Rpa9038 INR 1.6 01/10/2015 Pt Hci2682 Low Intensity - 1.5-2.0 01/10/2015 Pt Sic2526 Mod intensity - 2.0-3.0 01/10/2015 Pt Yqy2478 Hi intensity - 3.0-4.0 01/10/2015 Review of [...] 03/24/2018 ADMIN PNEUMOCOCCAL V ACCINE SNOMED CT: 44092687 CPT-4: G0009 03/24/2018 FLU VACC PRSV FREE I NC ANTIG Formatting Model/CDA Sections, Assigned to/Dorothea Tan CPT-4: 91341Djcqsir 03/24/2018 Pneumococcal Polysac charide Vaccine, 23-Valent, Ad CPT-4: 67226 03/24/2018 TRIAMCINOLONE ACET I [place] NOS CPT-4: J3301 06/15/2017 THER/PROPH/DIAG INJ SC/IM CPT-4: 46475 06/15/2017 ADMIN PNEUMOCOCCAL V ACCINE SNOMED CT: 05692373 CPT-4: G0009 03/16/2017 ADMIN INFLUENZA VIRU S VAC CPT-4: G0008 03/16/2017 FLU VAC NO PRSV 4 VA L 3 YRS+ CPT-4: 36693 03/16/2017 PNEUMOCOCCAL VACC [address]: 50914750 CPT-4: 79377 03/16/2017 URINALYSIS NONAUTO W /O SCOPE CPT-4: 92680 08/26/2016 THER/PROPH/DIAG INJ SC/IM CPT-4: 07779 07/22/2016 TRIAMCINOLONE ACET I [place] NOS CPT-4: J3301 07/22/2016 ROCEPHIN, PER 250 MG CPT-4: J0696 07/22/2016 TRIAMCINOLONE ACET I [place] NOS CPT-4: J3301 02/05/2015 Vital Signs Date Vital 07/11/2018 Blood Pressure 1: 102/68 Code: 8480-6 BMI: 34.5 Code: 02798-4 Heart Rate 1: 101 bpm Height: 5'7" SpO2: 98% Weight: 220 lbs 03/24/2018 Blood Pressure 1: 130/72 Code: 8480-6 BMI: 33.4 Code: 88862-3 Heart Rate 1: 82 bpm Height: 5'7" SpO2: 93% Weight: 213 lbs 11/18/2017 Blood Pressure 1: 128/70 Code: 8480-6 BMI: 33.6 Code: 54696-3 Heart Rate 1: 98 bpm Height: 5'7" SpO2: 97% Weight: 214 lbs 8 oz 09/30/2017 Blood Pressure 1: 100/50 Code: 8480-6 BMI: 34.0 Code: 24340-8 Heart Rate 1: 66 bpm Height: 5'7" SpO2: 96% Weight: 217 lbs 08/17/2017 Blood Pressure 1: 104/60 Code: 8480-6 BMI: 33.7 Code: 28045-9 Heart Rate 1: 99 bpm Height: 5'7" SpO2: 97% Weight: 215 lbs 06/15/2017 Blood Pressure 1: 120/64 Code: 8480-6 BMI: 33.5 Code: 41579-3 Heart Rate 1: 91 bpm Height: 5'7" SpO2: 94% Weight: 214 lbs 04/01/2017 Blood Pressure 1: 110/68 Code: 8480-6 BMI: 154.4 Code: 58183-9 Heart Rate 1: 66 bpm Height: 2'7" SpO2: 95% Weight: 211 lbs 03/16/2017 Blood Pressure 1: 130/72 Code: 8480-6 BMI: 33.0 Code: 26514-2 Heart Rate 1: 95 bpm Height: 5'7" SpO2: 97% Weight: 211 lbs 02/09/2017 Blood Pressure 1: 120/70 Code: 8480-6 BMI: 32.9 Code: 67880-0 Heart Rate 1: 78 bpm Height: 5'7" SpO2: 96% Weight: 210 lbs 10/13/2016 Blood Pressure 1: 118/76 Code: 8480-6 BMI: 32.6 Code: 59813-6 Heart Rate 1: 97 bpm Height: 5'7" SpO2: 98% Weight: 208 lbs 07/31/2016 Blood Pressure 1: 110/64 Code: 8480-6 BMI: 32.1 Code: 40675-7 Heart Rate 1: 79 bpm Height: 5'7" SpO2: 94% Weight: 205 lbs 07/22/2016 Blood Pressure 1: 108/74 Code: 8480-6 BMI: 32.1 Code: 92016-6 Heart Rate 1: 71 bpm Height: 5'7" SpO2: 97% Temperature: 36.9 (C ) / 98.4 (F) Weight: 205 lbs 05/01/2016 Blood Pressure 1: 120/72 Code: 8480-6 BMI: 32.7 Code: 31476-6 Heart Rate 1: 75 bpm Height: 5'7" SpO2: 94% Weight: 209 lbs 04/06/2016 Blood Pressure 1: 106/62 Code: 8480-6 BMI: 32.7 Code: 51777-0 Heart Rate 1: 83 bpm Height: 5'7" SpO2: 97% Weight: 209 lbs 03/06/2016 Blood Pressure 1: 112/68 Code: 8480-6 BMI: 32.7 Code: 14338-2 Heart Rate 1: 90 bpm Height: 5'7" SpO2: 97% Weight: 209 lbs 03/03/2016 Blood Pressure 1: 120/62 Code: 8480-6 BMI: 32.7 Code: 51148-7 Heart Rate 1: 92 bpm Height: 5'7" SpO2: 98% Weight: 209 lbs 02/07/2016 Blood Pressure 1: 110/64 Code: 8480-6 BMI: 32.7 Code: 23827-1 Heart Rate 1: 87 bpm Height: 5'7" SpO2: 97% Weight: 209 lbs 12/13/2015 Blood Pressure 1: 110/64 Code: 8480-6 BMI: 33.5 Code: 80832-5 Heart Rate 1: 90 bpm Height: 5'7" SpO2: 97% Weight: 214 lbs 12/03/2015 Blood Pressure 1: 132/76 Code: 8480-6 BMI: 33.4 Code: 77033-7 Heart Rate 1: 82 bpm Height: 5'7" SpO2: 99% Weight: 213 lbs 11/20/2015 Blood Pressure 1: 108/68 Code: 8480-6 BMI: 32.4 Code: 06424-0 Heart Rate 1: 77 bpm Height: 5'7" SpO2: 97% Weight: 207 lbs 09/17/2015 Blood Pressure 1: 122/76 Code: 8480-6 BMI: 33.0 Code: 96048-0 Heart Rate 1: 91 bpm Height: 5'7" SpO2: 97% Weight: 211 lbs 05/31/2015 Blood Pressure 1: 128/82 Code: 8480-6 BMI: 33.4 Code: 66529-7 Heart Rate 1: 98 bpm Height: 5'7" SpO2: 99% Weight: 213 lbs 02/05/2015 Blood Pressure 1: 128/80 Code: 8480-6 BMI: 32.6 Code: 41689-3 Heart Rate 1: 86 bpm Height: 5'7" SpO2: 97% Weight: 208 lbs 11/20/2014 Blood Pressure 1: 128/90 Code: 8480-6 BMI: 30.9 Code: 98352-2 Heart Rate 1: 94 bpm Height: 5'7" [...] 11/20/2015 None Hospital Follow Up _ [facility] er: fall 09/17/2015 None Hospital Follow [...] Findings Denies fever 05/31/2015 None 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 P ATIENT, LEVEL IV Diagnosis: Atrophy of thyroid (acquired)[ICD10: E03.4] Diagnosis: Essential (primary) hypertension[ICD10: I10] Diagnosis: Other fatigue[ICD10: R53.83] Diagnosis: Localized edema[ICD10: R60.0] Valerie Pisano MD, [facility] CPT-4: 49149 07/11/2018 ([id number]) 10974 EST. P ATIENT, LEVEL IV Diagnosis: Essential (primary) hypertension[ICD10: I10] Diagnosis: Atrophy of thyroid (acquired)[ICD10: E03.4] Diagnosis: Chronic atrial fibrillation[ICD10: I48.2] Valerie Pisano MD, [facility] CPT-4: 99670 03/24/2018 ([id number]) 23508 EST. P ATIENT, LEVEL IV Diagnosis: Essential (primary) hypertension[ICD10: I10] Diagnosis: Atrophy of thyroid (acquired)[ICD10: E03.4] Diagnosis: Chronic atrial fibrillation[ICD10: I48.2] Valerie Pisano MD, [facility] CPT-4: 73007 11/18/2017 [id number] EST. PATIENT, LEVEL IV Diagnosis: Localized edema[ICD10: R60.0] Roxie Pisano MD, [facility] CPT-4: 53852 09/30/2017 ([id number]) 31742 EST. P ATIENT, LEVEL III Diagnosis: Essential (primary) hypertension[ICD10: I10] Valerie Pisano MD, [facility] CPT-4: 31630 08/17/2017 ([id number]) 60724 EST. P ATIENT, LEVEL IV Diagnosis: Essential (primary) hypertension[ICD10: I10] Diagnosis: Atrophy of thyroid (acquired)[ICD10: E03.4] Diagnosis: Chronic atrial fibrillation[ICD10: I48.2] Diagnosis: Cervicalgia[ICD10: M54.2] Diagnosis: Other muscle spasm[ICD10: M62.838] Valerie Pisano MD, [facility] CPT- 4: 59521 06/15/2017 [id number] EST. PATIENT, LEVEL III Diagnosis: Laceration without foreign body of other finger without damage to nail, initial encounter[ICD10: S61.218A] Roxie Pisano MD, [facility] CPT-4: 91108 04/01/2017 ([id number]) 48526 EST. 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 PATIENT, LEVEL III Diagnosis: Other acute sinusitis[ICD10: J01.80] Diagnosis: Other allergic rhinitis[ICD10: J30.89] Roxie Pisano MD, [facility] CPT-4: 59997 07/31/2016 ([id number]) 30132 EST. P ATIENT, LEVEL III Diagnosis: Acute recurrent maxillary sinusitis[ICD10: J01.01] Valerie Pisano MD, [facility] CPT-4: 31281 07/22/2016 88815 EST. PATIENT, LEVEL IV Diagnosis: Essential (primary) hypertension[ICD10: I10] Diagnosis: Other allergic rhinitis[ICD10: J30.89] Diagnosis: Localized edema[ICD10: R60.0] Roxie Pisano MD, [facility] CPT-4: 81639 05/01/2016 [id number] EST. PATIENT, LEVEL III Diagnosis: Cellulitis of left lower limb[ICD10: L03.116] Diagnosis: Localized edema[ICD10: R60.0] Roxie Pisano MD, [facility] CPT-4: 39784 04/06/2016 ([id number]) Miscellaneou s no charge Diagnosis: Cellulitis of left lower limb[ICD10: L03.116] Diagnosis: Localized edema[ICD10: R60.0] Roxie Pisano MD, [facility] CPT-4: 32225 03/10/2016 ([id number]) Miscellaneou s no charge Diagnosis: Cellulitis of left lower limb[ICD10: L03.116] Roxie Pisano MD, [facility] CPT-4: 34641 03/06/2016 [id number] EST. PATIENT, LEVEL IV Diagnosis: Cellulitis of left lower limb[ICD10: L03.116] Diagnosis: Localized edema[ICD10: R60.0] Roxie Pisano MD, [facility] CPT-4: 50693 03/03/2016 ([id number]) 04288 EST. 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 P ATIENT, LEVEL III Diagnosis: Iliotibial band syndrome, right leg[ICD10: M76.31] Diagnosis: Localized edema[ICD10: R60.0] Brielle Pisano MD, [facility] CPT- 4: 47101 12/13/2015 ([id number]) 60222 EST. P ATIENT, LEVEL III Diagnosis: Localized edema[ICD10: R60.0] Diagnosis: Essential (primary) hypertension[ICD10: I10] Brielle Pisano MD, [facility] CPT-4: 32598 12/03/2015 ([id number]) 25488 EST. P ATIENT, LEVEL IV Diagnosis: [facility] (current) use of anticoagulants[ICD10: Z79.01] Diagnosis: Other skin changes[ICD10: R23.8] Diagnosis: Localized edema[ICD10: R60.0] Diagnosis: Pain in right foot[ICD10: M79.671] Valerie Pisano MD, [facility] CPT- 4: 53868 11/20/2015 97136 EST. PATIENT, LEVEL IV Diagnosis: Essential (primary) hypertension[ICD10: I10] Diagnosis: [facility] (current) use of anticoagulants[ICD10: Z79.01] Diagnosis: Muscle spasm of back[ICD10: M62.830] [facility] CPT- 4: 12395 09/17/2015 ([id number]) 96150 EST. P ATIENT, LEVEL IV Diagnosis: Localized edema[ICD10: R60.0] Diagnosis: Other specified hypothyroidism[ICD10: E03.8] Diagnosis: Essential (primary) hypertension[ICD10: I10] [facility] CPT-4: 66751 05/31/2015 ([id number]) 40556 EST. P ATIENT, LEVEL III Diagnosis: ALLERGIC RHINITIS[ICD9: 477.9] Diagnosis: ESSENTIAL HYPERTENSION[ICD9: 401.9] [facility] CPT-4: 59933 02/05/2015 ([id number]) OFFICE VISI T, NEW - LEVEL 4 Diagnosis: ESSENTIAL HYPERTENSION[ICD9: 401.9] Diagnosis: HYPOTHYROIDISM[ICD9: 244.9] Diagnosis: ACTINIC KERATOSIS[ICD9: 702.0] [facility] CPT-4: 91836 11/20/2014 Plan of Care Planned Activity Notes C odes Status Date Appointment: Brielle Cavazos WPtel: [facility]5 [phone] (15 min) Moderate 07/12/2018 Visit Plan: Hypertension [...] twice daily. 07/11/2018 Appointment: Valerie Pisano WPtel: [address] [place], [place] [id number] (15 min) Moderate 07/11/2018 Patient Education: Patient [...] today. 03/24/2018 Appointment: Valerie Pisano WPtel: [address] [place], [place] [phone] (15 min) Moderate 03/24/2018 Patient Education: [...] of control. 11/18/2017 Appointment: Valerie Pisano WPtel: [facility]5 [facility] (15 min) Moderate 11/18/2017 Patient Education: Patient Medication Summary Completed 11/18/2017 Referral: [facility] WPtel: [facility] Pt notified at appointment Appointment Confirmed [...] Unna Boots 09/30/2017 Appointment: Roxie Cazares WPtel: [address] [place], [place] [phone] (30 min) Complex 09/30/2017 Patient Education: Patient Medication Summary Completed 09/30/2017 Care Plan: Referral Order SNOMED-CT : [id number] Pending 09/30/2017 Visit Plan: Hypertension - well [...] supportive care at this time. 08/17/2017 Appointment: NorrisValerie [facility]el[facility] ([facility] min) Moderate 08/17/2017 Patient Education: [...] muscles. allergies - kenalog 40mg im bristol NanoAntibiotics squibb - lot # [id number] expires september 2018 06/15/2017 Appointment: Valerie Pisano WPtel: [phone] [phone] (15 min) Moderate 06/15/2017 Patient Education: Patient Medication Summary Completed 06/15/2017 Care Plan: Referral Order SNOMED-CT : [id number] Pending 06/15/2017 Appointment: Nurse Visit 04/05/2017 Appointment: [...] booster. 04/01/2017 Appointment: Roxie Cazares WPtel: [phone] [facility] (15 min) Moderate 04/01/2017 Patient Education: [...] today 03/16/2017 Appointment: Valerie Pisano WPtel: [phone] [facility] (15 min) Moderate 03/16/2017 Patient Education: Patient [...] allergy spray. 02/09/2017 Appointment: Valerie Pisano WPtel: [address] [place], [place] [address] (15 min) Moderate 02/09/2017 Patient Education: Patient [...] nystatin 10/13/2016 Appointment: Valerie Pisano WPtel: [phone] [phone] (15 min) Moderate 10/13/2016 Patient Education: Patient Medication Summary Completed 10/13/2016 Patient Education: Obesity Completed 10/13/2016 Patient Education: Hypertension Completed 10/13/2016 Care Plan: Urine Culture Pending 08/31/2016 Appointment: Roxie Cazares WPtel: [phone] [facility] Lab Draw 08/27/2016 Appointment: Nurse Visit [...] allergy spray. 07/31/2016 Appointment: Brielle Cavazos WPtel: [facility]1 [phone] (30 min) Complex 07/31/2016 Patient Education: Patient Medication Summary Completed 07/31/2016 Patient Education: Obesity Completed 07/31/2016 Visit Plan: Sinusitis - Pt has acut e infection - pain in face, maxillary region, Pt informed to use decongestant, RX given to patient, sinus rinses also recommended. Call if symptoms do not show improvement. 07/22/2016 Appointment: Valerie Pisano WPtel: [phone] [phone] (15 min) Moderate 07/22/2016 Patient Education: Patient [...] edema. 05/01/2016 Appointment: Brielle Cavazos WPtel: [phone] [phone] (30 min) Complex 05/01/2016 Patient Education: Patient [...] peripheral edema. 04/06/2016 Appointment: Roxie Cazares WPtel: [phone] [phone] (30 min) Complex 04/06/2016 Patient Education: Patient Medication Summary Completed 04/06/2016 Patient Education: Obesity Completed 04/06/2016 Visit Plan: left foot - improved - pt finished with antibiotics - continue to monitor - notify clinic with any concerns. Repeat INR today. 03/10/2016 Appointment: Brielle Cavazos WPtel: [phone] [phone] (30 min) Complex 03/10/2016 Patient Education: Patient Medication Summary Completed 03/10/2016 Visit Plan: Cellulitis - continue w ith oral antibiotics as previously directed, return to clinic as previously directed, call for acute change in symptoms, worsening redness, warmth, discharge. 03/06/2016 Appointment: Brielle Cavazos WPtel: [phone] (15 min) Moderate 03/06/2016 Patient Education: Patient Medication Summary Completed 03/06/2016 Patient Education: Obesity Completed 03/06/2016 Visit Plan: Cellulitis - continue w ith oral antibiotics as previously directed, return to clinic as previously directed, call for acute change in symptoms, worsening redness, warmth, discharge. 03/03/2016 Appointment: Brielle Cavazos WPtel: [facility]6 [phone] (15 min) Moderate 03/03/2016 Patient Education: [...] and 3.5. 02/07/2016 Appointment: Brielle Cavazos WPtel: [phone] [phone] (30 min) Complex 02/07/2016 Patient Education: Patient Medication Summary Completed 02/07/2016 Patient Education: Obesity Completed 02/07/2016 Patient Education: Hypertension Completed 02/07/2016 Appointment: Brielle Cavazos WPtel: [address] [place] [address] (30 min) Complex 02/04/2016 Visit Plan: Iliotibial [...] edema. 12/13/2015 Appointment: Brielle Cavazos WPtel: [facility] (15 min) Moderate 12/13/2015 Patient Education: [...] home. 12/03/2015 Appointment: Brielle Cavazos WPtel: [facility]5 [phone] (30 min) Complex 12/03/2015 Patient Education: Patient [...] Completed 02/05/2015 Appointment: Val[facility]isano WPtel[facility] ([facility] min) Moderate 01/29/2015 Visit Plan: [...] control. 11/20/2014 Appointment: [phone] [place] [facility] New Patient 11/20/2014 Patient Education: Patient Medication Summary Completed 11/20/2014 Patient Education: Hypertension Completed 11/20/2014 Patient Education: Patient Medication Summary Completed 10/19/2014 Referral: [facility] WPtel: Referral Appointment Requested Referral: [facility] [place] Ref[facility] Appointment Confirmed Instructions Comment . [...] of control. prevnar and flu shot today 1 pill mon/wed/fri, 1/2 pill tues/thurs/sat/sun take - This is [...] spray in the nasal steroid allergy spray. LASIX TAKE 40MG IN T HE MORNING [...] the office. get blood work one w [place] before next appt - fasting labs Decrease [...] therapy. RX for voltaren to neck muscles. . Hypertension - wel l controlled - [...] neck muscles. allergies - kenalog 40mg im Rad - lot # [id number] expires september 2018 check coumadin level on wednesday Nasal spray- [...] if symptoms do not show improvement. . Sinusitis - Pt has acute infection [...] attempt to reduce peripheral edema. [facility] while on the [...]
--- OUTSIDE RECORDS SUMMARY | 2019-09-12 11:55 | XMS REPORT | CCD ---
Author Author Clara Pisano Organization [facility] Address [address] [place] [address] Phone Care Team Providers Care Child Watch Attendant Name Role Phone PP Unavailable CCM Unavailable Summary Purpose Interface Exchange Insurance Providers Payer name Policy type / Coverage type Covered alliance party ID Effective Begin Date Effective End Date WPS Medicare Part B Medicare Part B [id number] 2018 Unknown [employer] Medicare Part B [id number] 2018 Unknown Family history Sister Diagnosis Age At Onset defect Unknown Breast cancer Unknown Daughter Diagnosis Age At Onset Breast cancer Unknown Mother Diagnosis Age At Onset No Family Disease Entered N/A Social History Social History Element Codes Description Effective Dates Marital status Unknown M arried Lane 11/20/2014 Number of children Unknown 6 11/20/2014 Employment Unknown Retir ed 11/20/[address]: 3438436 Quit over 10 years ago 1963 11/20/2014 [...] ICD-9: 883.0 ICD-10: S61.218A Active 04/01/2017 Unknown 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 ICD-9: V58.61 ICD-10: [...] encounter ICD-9: 883.0 ICD-10: S61.218A 04/01/2017 Active 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 ICD-9: V58.61 ICD-10: [...] 11/19/2014 Active HYPOTHYROIDISM ICD-9: 244.9 11/19/2014 Active 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 us 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 therapy ICD-9: V58.61 10/19/2014 Active Medications Medication Codes Instruc tions Start Date Stop Date Sta Fill Instructions Coumadin 4 mg tablet RxNorm: 650360 1 Tablet(s) PO daily except 1.5 pills on WEDNESDAY AND Wednesday07/11/2018 07/05/2019 Active this is an update to her RX - she will let you know when she needs refill furosemide 40 mg tablet RxNorm: 725867 1 Tablet(s) BID take 1.5 tabs twice a da y x 7 days then 1 pill daily thereafter 07/11/2018 02/05/2019 Active warfarin 5 mg tablet RxNorm: 031468 Tablet(s) TAKE ONE TABLET BY MOUTH DAILY EXCEPT T/TH TAKE 4 MG 04/06/2018 08/22/2019 Active diltiazem 60 mg tablet RxNorm: 673643 1/2 Tablet(s) PO QID 03/24/2018 No Stop Date Active levothyroxine 125 mc g tablet RxNorm: 847072 TAKE ONE TABLET BY [facility] DAILY ON WEDNESDAY, WED, AND WEDNESDAY, AND 1/2 TABLET ON , , WED AND WEDNESDAY. TAKE ON AN EMPTY STOMACH 02/02/2018 07/31/2018 Active Coumadin 4 mg tablet RxNorm: 680046 TAKE ONE TABLET BY MOUTH DAILY ON AND Wednesday10/14/2017 07/10/2018 Inactive nystatin 100,000 uni t/gram topical cream RxNorm: 279964 1 Application TOP TID 08/17/2017 No Stop Date Active triamcinolone aceton sreekanth 0.025 % topical cream RxNorm: 3387592 1 Application TOP BI D 08/17/2017 No Stop Date Active Voltaren 1 % topical gel RxNorm: 299401 2 Gram(s) TOP TID luiz ly to shoulder and neck 08/17/2017 No Stop Date Active levothyroxine 125 mc g tablet RxNorm: 422288 1 Tablet(s) UD 1 pill wed/wed/wed, 1/2 pill //wed/wed take ON AN EMPTY STOMACH 08/05/2017 02/01/2018 Inactive Coumadin 4 mg tablet RxNorm: 629860 1 Tablet(s) PO Wed/07/29/2017 10/13/2017 Inactive warfarin 5 mg tablet RxNorm: 428446 TAKE 1 AND 1/2 TABLETS BY MOUTH ON AND WEDNESDAY. TAKE ONLY 1 TABLET BY MOUTH ALL OTHER DAYS OF THE WEEK 07/12/2017 04/05/2018 In active furosemide 40 mg tablet RxNorm: 440354 Tablet(s) BID TAKE ONE TABLET BY MOUTH D AILY 06/15/2017 07/10/2018 Inactive Voltaren 1 % topical gel RxNorm: 055487 2 Gram(s) TOP TID luiz ly to shoulder and neck 06/15/2017 08/16/2017 Inactive Keflex 500 mg capsule RxNorm: 364489 1 Capsule(s) PO TID 04/01/2017 04/07/2017 Inactive furosemide 40 mg tablet RxNorm: 151414 TAKE ONE TABLET BY MOUTH DAILY 03/18/2017 06/14/2017 In active Claritin-D 12 Hour 5 mg-120 mg tablet,extended release RxNorm: 4084878 1 Tablet(s) PO BID 03/16/2017 05/14/2017 Inactive Lipitor 20 mg tablet RxNorm: 572843 1 Tablet(s) PO daily 02/09/2017 03/10/2017 Inactive lisinopril 2.5 mg ta blet RxNorm: 208950 1 Tablet(s) PO daily 02/09/2017 03/10/2017 Inactive Nasonex 50 mcg/actua tion [place] RxNorm: 3106086 1 [place] NASAL BID 02/09/2017 09/06/2017 Inactive levothyroxine 125 mc g tablet RxNorm: 608525 1 Tablet(s) UD 1 pill wed/wed/wed, 1/2 pill //sat/sun take ON AN EMPTY STOMACH 02/09/2017 08/04/2017 Inactive fluorouracil 5 % top ical cream RxNorm: 044951 1 Application TOP BID 02/09/2017 02/18/2017 Inactive potassium chloride E R 20 mEq tablet,extended release RxNorm: 218336 Tablet(s) TAKE ONE TABLET BY MOUTH DAILY 02/08/2017 02/02/2018 Inactive warfarin 5 mg tablet RxNorm: 807824 TAKE 1 AND 1/2 TABLETS BY MOUTH ON AND WEDNESDAY. TAKE ONLY 1 TABLET BY MOUTH ALL OTHER DAYS OF THE WEEK 12/14/2016 05/30/2017 In active potassium chloride E R 20 mEq tablet,extended release RxNorm: 780405 TAKE ONE TABLET BY MOUTH DAILY 10/29/2016 01/26/2017 Inactive warfarin 5 mg tablet RxNorm: 779504 TAKE 1 AND 1/2 TABLETS BY MOUTH ON AND WEDNESDAY. TAKE ONLY 1 TABLET BY MOUTH ALL OTHER DAYS OF THE WEEK 10/27/2016 12/13/2016 In active nystatin 100,000 uni t/gram topical cream RxNorm: 082803 1 Application TOP TID 10/13/2016 08/16/2017 In active nitrofurantoin 50 mg capsule RxNorm: 093282 1 Capsule(s) PO BID 09/04/2016 09/03/2016 Inactive nitrofurantoin macro crystal 50 mg capsule RxNorm: 927531 1 Capsule(s) PO BID 09/04/2016 09/10/2016 In active Cipro 500 mg tablet RxNorm: 480615 1 Tablet(s) PO BID 08/26/2016 10/12/2016 Inactive Zyrtec 10 mg tablet RxNorm: 7069671 1 Tablet(s) PO daily 07/31/2016 08/29/2016 Inactive prednisone 20 mg tablet RxNorm: 674522 2 Tablet(s) PO daily 07/31/2016 08/02/2016 Inactive Kenalog 40 mg/mL zohra pension for injection RxNorm: 3526659 Milliliter(s) Inj 07/22/2016 07/22/2016 In active ceftriaxone 500 mg s olution for injection RxNorm: 6725155 Inj 07/22/2016 07/22/2016 Inactive Flonase Allergy Reli ef 50 mcg/actuation nasal spray,suspension RxNorm: 0777939 1 [place] NASAL BID 07/22/2016 08/20/2016 Inactive azithromycin 250 mg tablet RxNorm: 108013 2 Tablet(s) PO on day #1, then 1 pill daily x 4 days 07/22/2016 10/12/2016 Inactive warfarin 5 mg tablet RxNorm: 625607 TAKE 1 AND 1/2 TABLETS BY MOUTH ON AND WEDNESDAY. TAKE ONLY 1 TABLET BY MOUTH ALL OTHER DAYS OF THE WEEK 07/09/2016 09/30/2016 In active levothyroxine 125 mc g tablet RxNorm: 018779 Tablet(s) TAKE ONE TA BLET BY MOUTH DAILY ON AN EMPTY STOMACH 06/23/2016 02/08/2017 Inactive levothyroxine 125 mc g tablet RxNorm: 259439 TAKE ONE TABLET BY [facility] DAILY ON AN EMPTY STOMACH 06/23/2016 06/22/2016 Inactive levothyroxine 125 mc g tablet RxNorm: 550901 TAKE ONE TABLET BY [facility] DAILY ON AN EMPTY STOMACH 06/23/2016 08/04/2017 Inactive cetirizine 10 mg tablet RxNorm: 5594745 TAKE ONE TABLET BY MOUTH DAILY 06/16/2016 10/13/2016 In active furosemide 40 mg tablet RxNorm: 244026 Tablet(s) TAKE ONE TABLET BY MOUTH DAILY 06/05/2016 12/01/2016 In active cetirizine 10 mg tablet RxNorm: 2019338 1 Tablet(s) PO daily 05/01/2016 05/30/2016 Inactive Levaquin 250 mg tablet RxNorm: 265993 Tablet(s) PO 2 pills day one and 1 pill day 2-7 04/06/2016 07/21/2016 Inactive warfarin 5 mg tablet RxNorm: 563412 Tablet(s) 1/2 TABLETS BY MOUTH ON AND WEDNESDAY. TAKE ONLY 1 TABLET BY MOUTH ALL OTHER DAYS OF THE WEEK 03/18/2016 07/07/2016 In active triamcinolone aceton sreekanth 0.025 % topical cream RxNorm: 2864216 1 Application TOP BI D 03/10/2016 08/16/2017 In active potassium chloride E R 20 mEq tablet,extended release RxNorm: 578146 1 Tablet(s) PO daily 03/04/2016 06/01/2016 Inactive Levaquin 250 mg tablet RxNorm: 258947 Tablet(s) PO 2 pills day one and 1 pill day 2-7 03/04/2016 04/05/2016 Inactive Levaquin 250 mg tablet RxNorm: 839049 Tablet(s) PO 2 pills day one and 1 pill day 2-7 03/03/2016 03/03/2016 Inactive potassium chloride E R 20 mEq tablet,extended release RxNorm: 321506 1 Tablet(s) PO daily 03/03/2016 03/03/2016 Inactive Cipro 500 mg tablet RxNorm: 756105 1 Tablet(s) PO BID 02/20/2016 07/21/2016 Inactive Cipro 500 mg tablet RxNorm: 931022 1 Tablet(s) PO BID 02/20/2016 02/19/2016 Inactive furosemide 40 mg tablet RxNorm: 308650 TAKE ONE TABLET BY MOUTH DAILY 01/27/2016 01/26/2016 In active warfarin 5 mg tablet RxNorm: 675124 TAKE 1 AND 1/2 TABLETS BY MOUTH ON AND WEDNESDAY. TAKE ONLY 1 TABLET BY MOUTH ALL OTHER DAYS OF THE WEEK 01/27/2016 01/26/2016 In active furosemide 40 mg tablet RxNorm: 930425 TAKE ONE TABLET BY MOUTH DAILY 01/27/2016 06/04/2016 In active warfarin 5 mg tablet RxNorm: 682061 TAKE 1 AND 1/2 TABLETS BY MOUTH ON AND WEDNESDAY. TAKE ONLY 1 TABLET BY MOUTH ALL OTHER DAYS OF THE WEEK 01/27/2016 03/17/2016 In active potassium chloride E R 20 mEq tablet,extended release RxNorm: 257617 1 Tablet(s) PO daily 11/20/2015 03/02/2016 Inactive furosemide 40 mg tablet RxNorm: 166574 TAKE ONE TABLET BY MOUTH DAILY 11/12/2015 01/26/2016 In active Zovirax 5 % topical cream RxNorm: 844719 TOP QID 0 09/24/2015 09/23/2015 Inactive Zovirax 5 % topical cream RxNorm: 586547 TOP QID 0 09/24/2015 11/19/2015 Inactive nystatin 100,000 uni t/gram topical cream RxNorm: 596774 1 Application TOP TID 09/17/2015 10/12/2016 In active warfarin 5 mg tablet RxNorm: 843655 TAKE 1 AND 1/2 TABLETS BY MOUTH ON AND WEDNESDAY. TAKE ONLY 1 TABLET BY MOUTH ALL OTHER DAYS OF THE WEEK 08/19/2015 01/05/2016 In active loratadine 10 mg tablet RxNorm: 667200 1 Tablet(s) PO daily 07/30/2015 07/23/2016 Inactive loratadine 10 mg tablet RxNorm: 672126 1 Tablet(s) PO daily 07/30/2015 07/29/2015 Inactive furosemide 40 mg tablet RxNorm: 565798 TAKE ONE TABLET BY MOUTH DAILY 06/24/2015 11/11/2015 In active levothyroxine 125 mc g tablet RxNorm: 512744 1 Tablet(s) PO daily 05/31/2015 05/24/2016 Inactive furosemide 40 mg tablet RxNorm: 348378 1 Tablet(s) PO daily 04/05/2015 06/23/2015 Inactive warfarin 5 mg tablet RxNorm: 566088 TAKE 1 AND 1/2 TABLETS BY MOUTH ON AND WEDNESDAY. TAKE ONLY 1 TABLET BY MOUTH ALL OTHER DAYS OF THE WEEK 02/12/2015 07/29/2015 In active Flonase Allergy Reli ef 50 mcg/actuation nasal spray,suspension RxNorm: 2 [place] NASAL daily 02/05/2015 03/06/2015 Inactive Kenalog 40 mg/mL zohra pension for injection RxNorm: 4165520 Milliliter(s) Inj 02/05/2015 02/05/2015 In active warfarin 5 mg tablet RxNorm: 401978 Take 7.5mg (1 1/2 tablets) Wednesday and and 1 Tablet(s) PO (5mg) all other days 01/11/2015 02/09/2015 Inactive levothyroxine 125 mc g tablet RxNorm: 259646 1 Tablet(s) PO every other day 01/01/2015 05/30/2015 In active alternate with 150 levothyroxine 150 mc g tablet RxNorm: 833071 1 Tablet(s) PO every other day 01/01/2015 05/30/2015 In active alternate with 125 loratadine 10 mg tablet RxNorm: 784721 Tablet(s) PO as needed No Start Date Active Fish Oil 1,000 mg ca psule RxNorm: 1 Capsule(s) PO TID No Start Date Active magnesium 250 mg tablet RxNorm: 1 Tablet(s) PO daily No Start Date Active Vitamin D3 2,000 uni t tablet RxNorm: 008271 2 Tablet(s) PO daily No Start Date Active Fosamax 35 mg tablet RxNorm: 965293 1 Tablet(s) PO QW No Start Date Active levothyroxine 125 mc g tablet RxNorm: 557158 1 Tablet(s) PO daily No Start Date 12/31/2014 Inactive levothyroxine 150 mc g tablet RxNorm: 497149 1 Tablet(s) PO daily No Start Date 12/31/2014 Inactive diltiazem 60 mg tablet RxNorm: 139928 1 Tablet(s) PO QID No Start Date 03/23/2018 Inactive furosemide 40 mg tablet RxNorm: 609758 1 Tablet(s) PO daily No Start Date 04/04/2015 Inactive potassium chloride RxNorm: miscellaneous No Start Date 11/19/2015 Inactive Vitamin D2 oral RxNorm: 4018 oral No Start Date 05/31/2015 Inactive warfarin 5 mg tablet RxNorm: 624648 1 Tablet(s) PO daily No Start Date 01/10/2015 Inactive Coumadin 4 mg tablet RxNorm: 783630 1 Tablet(s) PO Wed/ No Start Date 07/28/2017 Inactive Medication Administered Medication Codes Instruc tions Start Date Status ceftriaxone 500 mg solution for injection RxNorm: 5325114 07/22/2016 No longer A ctive Kenalog 40 mg/mL suspension for injection RxNorm: 8250876 Milliliter 07/22/2016 No longer Active Kenalog 40 mg/mL suspension for injection RxNorm: 2718137 Milliliter 02/05/2015 No longer Active Immunizations Vaccine [...] encounter ICD-10: S61.218A ICD-9: 883.0 04/01/2017 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 ICD-10: Z79.01 [...] Code Item Item Code Result Date Pt Jjl2475 PT 38.6 seconds 07/19/2018 Pt Lel0701 INR 4.0 07/19/2018 Pt Wji4647 Low Intensity - 1.5-2.0 07/19/2018 Pt Avp5967 Mod intensity - 2.0-3.0 07/19/2018 Pt Ynr5921 Hi intensity - 3.0-4.0 07/19/2018 Pt Lzv4462 PT 25.7 seconds 07/11/2018 Pt Let1410 INR 2.4 07/11/2018 Pt Rhv5996 Low Intensity - 1.5-2.0 07/11/2018 Pt Pft0544 Mod intensity - 2.0-3.0 07/11/2018 Pt Aef2302 Hi intensity - 3.0-4.0 07/11/2018 Pt Zam2983 PT 18.5 seconds 07/08/2018 Pt Ylr5301 INR 1.6 07/08/2018 Pt Dnm1586 Low Intensity - 1.5-2.0 07/08/2018 Pt Yyf7418 Mod intensity - 2.0-3.0 07/08/2018 Pt Vdc7010 Hi intensity - 3.0-4.0 07/08/2018 Pt Qhk8186 PT 27.3 seconds 06/29/2018 Pt Lgy8624 INR 2.6 06/29/2018 Pt Tkn7326 Low Intensity - 1.5-2.0 06/29/2018 Pt Mwr9165 Mod intensity - 2.0-3.0 06/29/2018 Pt Ggb7218 Hi intensity - 3.0-4.0 06/29/2018 Pt Ics6316 PT 24.0 seconds 05/26/2018 Pt Tkk9926 INR 2.2 05/26/2018 Pt Cya4421 Low Intensity - 1.5-2.0 05/26/2018 Pt Wna0798 Mod intensity - 2.0-3.0 05/26/2018 Pt Odk7640 Hi intensity - 3.0-4.0 05/26/2018 Tsh Ord6 [...] 29.6 pg 03/25/2018 Cbc With Differential Ord2 [place]% 9.5 % 03/25/2018 Cbc With Differential Ord2 [...] 2.19 K/ul 03/25/2018 Cbc With Differential Ord2 [place] ABS# 0.8 K/ul 03/25/2018 Cbc With Differential Ord2 Eos ABS# 0.3 K/ul 03/25/2018 Cbc With Differential Ord2 Baso ABS# 0.0 K/ul 03/25/2018 Comp Metabolic Jzo634 NA 143 mEq/L 03/25/2018 Comp Metabolic Vcn805 K 4.6 mEq/L 03/25/2018 Comp Metabolic Lyq818 CL 108 mEq/L 03/25/2018 Comp Metabolic Vsw707 CO2 26.0 mEq/L 03/25/2018 Comp Metabolic Xyd478 AN ION GAP 14 03/25/2018 Comp Metabolic Qar779 GL UCOSE 87 mg/dL 03/25/2018 Comp Metabolic Vmd082 Cr eat 1.2 mg/dL 03/25/2018 Comp Metabolic Spp750 eG FR 48 ml/min/1.73m2 03/25 Comp Metabolic Osk144 BUN 18 mg/dL 03/25/2018 Comp Metabolic Fkv723 B/ C Ratio 15.5 Ratio 03/25/2018 Comp Metabolic Ciu359 CA LCIUM 9.1 mg/dL 03/25/2018 Comp Metabolic Fsz473 AL K PHOS 58 U/L 03/25/2018 Comp Metabolic Rkh875 T(SGOT) 21 U/L 03/25/2018 Comp Metabolic Far372 AL T(SGPT) 13 U/L 03/25/2018 Comp Metabolic Hrp978 BI LI T 0.7 mg/dL 03/25/2018 Comp Metabolic Gqk830 AL BUMIN 3.2 g/dL 03/25/2018 Comp Metabolic Jph999 TP RO 5.5 g/dL 03/25/2018 Comp Metabolic Dxf774 GL OB 2.3 g/dL 03/25/2018 Comp Metabolic Zmx586 A/ G Ratio 1.4 Ratio 03/25/2018 Comp Metabolic Kvh717 Os mo 286 mOsmo 03/25/2018 Lipid Ord30 CHOL 156 mg/dL 03/25/2018 Lipid Ord30 HDL 52.0 mg/dl 03/25/2018 Lipid Ord30 TRIG 98 mg/dL 03/25/2018 Lipid Ord30 LDL 84 mg/dL 03/25/2018 Lipid Ord30 C/HDL 3.0 Ratio 03/25/2018 Free T4 Pqv775 FREE T4 1.73 ng/dL 03/25/2018 Pt Tcl3992 PT 29.0 seconds 03/22/2018 Pt Tgj0655 INR 2.7 03/22/2018 Pt Ktw6452 Low Intensity - 1.5-2.0 03/22/2018 Pt Onm6674 Mod intensity - 2.0-3.0 03/22/2018 Pt Cpp3461 Hi intensity - 3.0-4.0 03/22/2018 Pt Aic2970 PT 27.1 seconds 02/25/2018 Pt Rmz2778 INR 2.5 02/25/2018 Pt Iyt4332 Low Intensity - 1.5-2.0 02/25/2018 Pt Kmc5300 Mod intensity - 2.0-3.0 02/25/2018 Pt Aql7476 Hi intensity - 3.0-4.0 02/25/2018 Pt Puv7924 PT 26.1 seconds 01/26/2018 Pt Htl0518 INR 2.4 01/26/2018 Pt Boi0664 Low Intensity - 1.5-2.0 01/26/2018 Pt Fve6793 Mod intensity - 2.0-3.0 01/26/2018 Pt Mqw0500 Hi intensity - 3.0-4.0 01/26/2018 Pt Scu1348 PT 22.8 seconds 12/24/2017 Pt Erf5654 INR 2.0 12/24/2017 Pt Tcs3450 Low Intensity - 1.5-2.0 12/24/2017 Pt Syc2122 Mod intensity - 2.0-3.0 12/24/2017 Pt Uql2439 Hi intensity - 3.0-4.0 12/24/2017 Pt Jmd3794 PT 29.4 seconds 11/18/2017 Pt Azz6605 INR 2.8 11/18/2017 Pt Uxt6137 Low Intensity - 1.5-2.0 11/18/2017 Pt Kwr5933 Mod intensity - 2.0-3.0 11/18/2017 Pt Qfe2118 Hi intensity - 3.0-4.0 11/18/2017 Pt Yww3989 PT 26.6 seconds 09/13/2017 Pt Umi8007 INR 2.4 09/13/2017 Pt Vnc6564 Low Intensity - 1.5-2.0 09/13/2017 Pt Tpt9003 Mod intensity - 2.0-3.0 09/13/2017 Pt Hqe4461 Hi intensity - 3.0-4.0 09/13/2017 Pt Whp9889 PT 28.2 seconds 08/10/2017 Pt Ynq8295 INR 2.6 08/10/2017 Pt Akc4943 Low Intensity - 1.5-2.0 08/10/2017 Pt Pja4881 Mod intensity - 2.0-3.0 08/10/2017 Pt Fvu0426 Hi intensity - 3.0-4.0 08/10/2017 Pt Kmy6202 PT 33.9 seconds 07/27/2017 Pt Enr7467 INR 3.3 07/27/2017 Pt Rth3652 Low Intensity - 1.5-2.0 07/27/2017 Pt Iae6902 Mod intensity - 2.0-3.0 07/27/2017 Pt Iov5020 Hi intensity - 3.0-4.0 07/27/2017 Pt Inc4375 PT 29.1 seconds 06/29/2017 Pt Fci5223 INR 2.7 06/29/2017 Pt Ncz5239 Low Intensity - 1.5-2.0 06/29/2017 Pt Yvy3867 Mod intensity - 2.0-3.0 06/29/2017 Pt Gek9841 Hi intensity - 3.0-4.0 06/29/2017 Pt Lpr1734 PT 30.3 seconds 06/11/2017 Pt Tco4625 INR 2.9 06/11/2017 Pt Hjc6850 Low Intensity - 1.5-2.0 06/11/2017 Pt Wwn1491 Mod intensity - 2.0-3.0 06/11/2017 Pt Rbh2042 Hi intensity - 3.0-4.0 06/11/2017 Pt Qbo8644 PT 39.1 seconds 06/07/2017 Pt Eju5515 INR 3.9 06/07/2017 Pt Bqc2743 Low Intensity - 1.5-2.0 06/07/2017 Pt Efz0803 Mod intensity - 2.0-3.0 06/07/2017 Pt Pdo8050 Hi intensity - 3.0-4.0 06/07/2017 Pt Ktt9739 PT 34.2 seconds 05/26/2017 Pt Zti8335 INR 3.3 05/26/2017 Pt Ptv3500 Low Intensity - 1.5-2.0 05/26/2017 Pt Zyi2996 Mod intensity - 2.0-3.0 05/26/2017 Pt Mdz8580 Hi intensity - 3.0-4.0 05/26/2017 Pt Nbz1223 PT 28.6 seconds 04/23/2017 Pt Sly4329 INR 2.7 04/23/2017 Pt Iuf3081 Low Intensity - 1.5-2.0 04/23/2017 Pt Qyo0430 Mod intensity - 2.0-3.0 04/23/2017 Pt Eev2595 Hi intensity - 3.0-4.0 04/23/2017 Comp Metabolic Wgn104 NA 138 mEq/L 04/23/2017 Comp Metabolic Cco895 K 4.2 mEq/L 04/23/2017 Comp Metabolic Hgn738 CL 101 mEq/L 04/23/2017 Comp Metabolic Ebq362 CO2 28.0 mEq/L 04/23/2017 Comp Metabolic Hek685 AN ION GAP 13 04/23/2017 Comp Metabolic Dbz166 GL UCOSE 89 mg/dL 04/23/2017 Comp Metabolic Hgh100 Cr eat 1.1 mg/dL 04/23/2017 Comp Metabolic Rql285 eG FR 51 ml/min/1.73m2 04/23 Comp Metabolic Aim307 BUN 26 mg/dL 04/23/2017 Comp Metabolic Suc647 B/ C Ratio 23.9 Ratio 04/23/2017 Comp Metabolic Jov366 CA LCIUM 9.4 mg/dL 04/23/2017 Comp Metabolic Hqk030 AL K PHOS 95 U/L 04/23/2017 Comp Metabolic Wom867 T(SGOT) 18 U/L 04/23/2017 Comp Metabolic Spk687 AL T(SGPT) 17 U/L 04/23/2017 Comp Metabolic Pkm128 BI LI T 0.7 mg/dL 04/23/2017 Comp Metabolic Kjb697 AL BUMIN 3.2 g/dL 04/23/2017 Comp Metabolic Ffj905 TP RO 5.6 g/dL 04/23/2017 Comp Metabolic Jgb802 GL OB 2.4 g/dL 04/23/2017 Comp Metabolic Ajd241 A/ G Ratio 1.3 Ratio 04/23/2017 Comp Metabolic Qba919 Os mo 280 mOsmo 04/23/2017 Pt Qnz9734 PT 24.4 seconds 03/16/2017 Pt Puo7127 INR 2.2 03/16/2017 Pt Phw3055 Low Intensity - 1.5-2.0 03/16/2017 Pt Lfb3143 Mod intensity - 2.0-3.0 03/16/2017 Pt Lzm3985 Hi intensity - 3.0-4.0 03/16/2017 Pt Rzu6462 PT 28.2 seconds 02/24/2017 Pt Tsp7919 INR 2.6 02/24/2017 Pt Zxj3845 Low Intensity - 1.5-2.0 02/24/2017 Pt Keh6584 Mod intensity - 2.0-3.0 02/24/2017 Pt Asp2545 Hi intensity - 3.0-4.0 02/24/2017 Pt Sxr6628 PT 26.8 seconds 02/08/2017 Pt Rnq0721 INR 2.5 02/08/2017 Pt Rfs3944 Low Intensity - 1.5-2.0 02/08/2017 Pt Nqo4314 Mod intensity - 2.0-3.0 02/08/2017 Pt Zbs3061 Hi intensity - 3.0-4.0 02/08/2017 Lipid Ord30 CHOL 150 mg/dL 01/25/2017 Lipid Ord30 HDL 55.0 mg/dl 01/25/2017 Lipid Ord30 TRIG 66 mg/dL 01/25/2017 Lipid Ord30 LDL 82 mg/dL 01/25/2017 Lipid Ord30 C/HDL 2.7 Ratio 01/25/2017 Comp Metabolic Wjz092 NA 143 mEq/L 01/25/2017 Comp Metabolic Rsy427 K 3.9 mEq/L 01/25/2017 Comp Metabolic Liv912 CL 108 mEq/L 01/25/2017 Comp Metabolic Coz939 CO2 23.0 mEq/L 01/25/2017 Comp Metabolic Day740 AN ION GAP 16 01/25/2017 Comp Metabolic Gul082 GL UCOSE 80 mg/dL 01/25/2017 Comp Metabolic Zut267 Cr eat 1.0 mg/dL 01/25/2017 Comp Metabolic Zba379 eG FR 57 ml/min/1.73m2 01/25 Comp Metabolic Pxm968 BUN 25 mg/dL 01/25/2017 Comp Metabolic Gsa522 B/ C Ratio 25.0 Ratio 01/25/2017 Comp Metabolic Yzj774 CA LCIUM 8.5 mg/dL 01/25/2017 Comp Metabolic Jrh594 AL K PHOS 81 U/L 01/25/2017 Comp Metabolic Ncy966 T(SGOT) 19 U/L 01/25/2017 Comp Metabolic Uts624 AL T(SGPT) 23 U/L 01/25/2017 Comp Metabolic Ebo570 BI LI T 0.5 mg/dL 01/25/2017 Comp Metabolic Vqb445 AL BUMIN 2.9 g/dL 01/25/2017 Comp Metabolic Ypg394 TP RO 5.1 g/dL 01/25/2017 Comp Metabolic Tcs711 GL OB 2.2 g/dL 01/25/2017 Comp Metabolic Iqh589 A/ G Ratio 1.3 Ratio 01/25/2017 Comp Metabolic Sqt794 Os mo 288 mOsmo 01/25/2017 Cbc With Differential Ord2 WBC 10.22 K/ul 01/25/2017 Cbc With Differential Ord2 RBC 4.89 M/ul 01/25/2017 Cbc With Differential Ord2 HGB 15.0 g/dl 01/25/2017 Cbc With Differential Ord2 Neut% 57.6 % 01/25/2017 Cbc With Differential Ord2 HCT 45.2 % 01/25/2017 Cbc With Differential Ord2 MCV 92.4 fl 01/25/2017 Cbc With Differential Ord2 Lymph% 30.3 % 01/25/2017 Cbc With Differential Ord2 MCH 30.7 pg 01/25/2017 Cbc With Differential Ord2 [place]% 8.2 % 01/25/2017 Cbc With Differential Ord2 [...] 3.10 K/ul 01/25/2017 Cbc With Differential Ord2 [place] ABS# 0.8 K/ul 01/25/2017 Cbc With Differential Ord2 Eos ABS# 0.4 K/ul 01/25/2017 Cbc With Differential Ord2 Baso ABS# 0.1 K/ul 01/25/2017 Free T4 Icd767 FREE T4 2.09 ng/dL 01/25/2017 Tsh Ord6 hTSH II 0.46 uIU/mL 01/25/2017 Pt Plz1192 PT 29.9 seconds 01/25/2017 Pt Uqs5867 INR 2.8 01/25/2017 Pt Zkk9847 Low Intensity - 1.5-2.0 01/25/2017 Pt Tie4681 Mod intensity - 2.0-3.0 01/25/2017 Pt Sui9003 Hi intensity - 3.0-4.0 01/25/2017 Pt Aol3691 PT 26.1 seconds 11/26/2016 Pt Olc4680 INR 2.6 11/26/2016 Pt Lud9764 Low Intensity - 1.5-2.0 11/26/2016 Pt Wan9010 Mod intensity - 2.0-3.0 11/26/2016 Pt Lqp0213 Hi intensity - 3.0-4.0 11/26/2016 Pt Ptx3084 PT 26.2 seconds 10/29/2016 Pt Ptj2061 INR 2.6 10/29/2016 Pt Yml3135 Low Intensity - 1.5-2.0 10/29/2016 Pt Rgb2287 Mod intensity - 2.0-3.0 10/29/2016 Pt Isc5254 Hi intensity - 3.0-4.0 10/29/2016 Pt Pjy1712 PT 20.8 seconds 10/13/2016 Pt Tll0701 INR 1.9 10/13/2016 Pt Shw7712 Low Intensity - 1.5-2.0 10/13/2016 Pt Ttn3019 Mod intensity - 2.0-3.0 10/13/2016 Pt Jer3912 Hi intensity - 3.0-4.0 10/13/2016 Pt Kxj1020 PT 26.5 seconds 10/01/2016 Pt Jne4752 INR 2.6 10/01/2016 Pt Pph3250 Low Intensity - 1.5-2.0 10/01/2016 Pt Vyj9070 Mod intensity - 2.0-3.0 10/01/2016 Pt Hbi0284 Hi intensity - 3.0-4.0 10/01/2016 Pt Itq0828 PT 24.6 seconds 09/14/2016 Pt Gkx8034 INR 2.4 09/14/2016 Pt Gwj2946 Low Intensity - 1.5-2.0 09/14/2016 Pt Hpl1169 Mod intensity - 2.0-3.0 09/14/2016 Pt Kmu4980 Hi intensity - 3.0-4.0 09/14/2016 Pt Ybh2436 PT 18.0 seconds 09/07/2016 Pt Zef5687 INR 1.6 09/07/2016 Pt Nzo2157 Low Intensity - 1.5-2.0 09/07/2016 Pt Com1692 Mod intensity - 2.0-3.0 09/07/2016 Pt Qit9452 Hi intensity - 3.0-4.0 09/07/2016 Pt Auv7875 PT 23.7 seconds 08/12/2016 Pt Apf1814 INR 2.2 08/12/2016 Pt Aqh6576 Low Intensity - 1.5-2.0 08/12/2016 Pt Hyb8518 Mod intensity - 2.0-3.0 08/12/2016 Pt Exa6871 Hi intensity - 3.0-4.0 08/12/2016 Pt Sou9901 PT 21.6 seconds 07/27/2016 Pt Stz2773 INR 2.0 07/27/2016 Pt Vtc0939 Low Intensity - 1.5-2.0 07/27/2016 Pt Haf0092 Mod intensity - 2.0-3.0 07/27/2016 Pt Gys9953 Hi intensity - 3.0-4.0 07/27/2016 Pt Wgm4984 PT 26.0 seconds 06/15/2016 Pt Dsv7505 INR 2.5 06/15/2016 Pt Qkv0906 Low Intensity - 1.5-2.0 06/15/2016 Pt Fiu4572 Mod intensity - 2.0-3.0 06/15/2016 Pt Oze5394 Hi intensity - 3.0-4.0 06/15/2016 Pt Eyy6594 PT 18.8 seconds 06/01/2016 Pt Mat3243 INR 1.7 06/01/2016 Pt Sea5713 Low Intensity - 1.5-2.0 06/01/2016 Pt Ruv4002 Mod intensity - 2.0-3.0 06/01/2016 Pt Udg3212 Hi intensity - 3.0-4.0 06/01/2016 Pt Glw3358 PT 20.8 seconds 05/12/2016 Pt Yol9385 INR 1.9 05/12/2016 Pt Eki3030 Low Intensity - 1.5-2.0 05/12/2016 Pt Klp9211 Mod intensity - 2.0-3.0 05/12/2016 Pt Wlf7957 Hi intensity - 3.0-4.0 05/12/2016 Pt Mbx4704 PT 24.5 seconds 04/10/2016 Pt Xon9662 INR 2.4 04/10/2016 Pt Yfv5419 Low Intensity - 1.5-2.0 04/10/2016 Pt Hif5738 Mod intensity - 2.0-3.0 04/10/2016 Pt Leh5353 Hi intensity - 3.0-4.0 04/10/2016 Pt Hms3765 PT 26.4 seconds 03/10/2016 Pt Bqp5161 INR 2.6 03/10/2016 Pt Pxa3291 Low Intensity - 1.5-2.0 03/10/2016 Pt Mik8210 Mod intensity - 2.0-3.0 03/10/2016 Pt Gcj4958 Hi intensity - 3.0-4.0 03/10/2016 Pt Anc0105 PT 24.9 seconds 03/06/2016 Pt Pcx3838 INR 2.4 03/06/2016 Pt Fom6077 Low Intensity - 1.5-2.0 03/06/2016 Pt Nfi2855 Mod intensity - 2.0-3.0 03/06/2016 Pt Ord9009 Hi intensity - 3.0-4.0 03/06/2016 Pt Iji8836 PT 21.9 seconds 02/25/2016 Pt Jiw1600 INR 2.0 02/25/2016 Pt Prr4148 Low Intensity - 1.5-2.0 02/25/2016 Pt Ujq0834 Mod intensity - 2.0-3.0 02/25/2016 Pt Mtp4260 Hi intensity - 3.0-4.0 02/25/2016 Pt Pwh6959 PT 21.8 seconds 02/21/2016 Pt Ioo4963 INR 2.0 02/21/2016 Pt Amg8712 Low Intensity - 1.5-2.0 02/21/2016 Pt Fzn6870 Mod intensity - 2.0-3.0 02/21/2016 Pt Pbv1552 Hi intensity - 3.0-4.0 02/21/2016 Culture Urine [id number] URI NE CULTURE SEE NOTES 02/20/2016 Culture Urine [id number] Con tinued Results 02/20/2016 Urine Culture Ucult Comp lete Growth of aerobe sent to ref lab 02/18/2016 Tsh Ord6 hTSH II 0.80 uIU/mL 02/14/2016 Pt Wfx6366 PT 27.1 seconds 02/14/2016 Pt Edq0033 INR 2.7 02/14/2016 Pt Wws4664 Low Intensity - 1.5-2.0 02/14/2016 Pt Eow2303 Mod intensity - 2.0-3.0 02/14/2016 Pt Hiz7397 Hi intensity - 3.0-4.0 02/14/2016 Free T4 Pzt705 FREE T4 1.87 ng/dL 02/14/2016 Comp Metabolic Coc338 NA 139 mEq/L 02/14/2016 Comp Metabolic Qpv911 K 3.8 mEq/L 02/14/2016 Comp Metabolic Vyz503 CL 103 mEq/L 02/14/2016 Comp Metabolic Bog162 CO2 27.0 mEq/L 02/14/2016 Comp Metabolic Lxo820 AN ION GAP 13 02/14/2016 Comp Metabolic Tqt497 GL UCOSE 91 mg/dL 02/14/2016 Comp Metabolic Eoo642 Cr eat 1.0 mg/dL 02/14/2016 Comp Metabolic Ksf107 eG FR 58 ml/min/1.73m2 02/13 Comp Metabolic Iiq400 BUN 16 mg/dL 02/14/2016 Comp Metabolic Ssp118 B/ C Ratio 16.2 Ratio 02/14/2016 Comp Metabolic Bxq113 CA LCIUM 9.0 mg/dL 02/14/2016 Comp Metabolic Zrc973 AL K PHOS 88 U/L 02/14/2016 Comp Metabolic Ght519 T(SGOT) 17 U/L 02/14/2016 Comp Metabolic Ufy074 AL T(SGPT) 12 U/L 02/14/2016 Comp Metabolic Seg538 BI LI T 0.6 mg/dL 02/14/2016 Comp Metabolic Fvt817 AL BUMIN 3.2 g/dL 02/14/2016 Comp Metabolic Xaz051 TP RO 5.8 g/dL 02/14/2016 Comp Metabolic Txu515 GL OB 2.6 g/dL 02/14/2016 Comp Metabolic Cwh401 A/ G Ratio 1.3 Ratio 02/14/2016 Comp Metabolic Hyg464 Os mo 278 mOsmo 02/14/2016 Urinalysis Ord28 [...] 29.0 % 02/14/2016 Cbc With Differential Ord2 [place]% 9.3 % 02/14/2016 Cbc With Differential Ord2 [...] 2.55 K/ul 02/14/2016 Cbc With Differential Ord2 [place] ABS# 0.8 K/ul 02/14/2016 Cbc With Differential Ord2 Eos ABS# 0.4 K/ul 02/14/2016 Cbc With Differential Ord2 Baso ABS# 0.1 K/ul 02/14/2016 Pt Tdj3596 PT 34.6 seconds 02/06/2016 Pt Gqz8912 INR 3.7 02/06/2016 Pt Rnr7677 Low Intensity - 1.5-2.0 02/06/2016 Pt Dai0277 Mod intensity - 2.0-3.0 02/06/2016 Pt Nkw5008 Hi intensity - 3.0-4.0 02/06/2016 Pt Pnv7046 PT 33.3 seconds 01/23/2016 Pt Gwe6963 INR 3.5 01/23/2016 Pt Lqd6716 Low Intensity - 1.5-2.0 01/23/2016 Pt Yxr4831 Mod intensity - 2.0-3.0 01/23/2016 Pt Cdd7396 Hi intensity - 3.0-4.0 01/23/2016 Pt Eic8701 PT 30.5 seconds 12/31/2015 Pt Lio7408 INR 3.2 12/31/2015 Pt Kvx2975 Low Intensity - 1.5-2.0 12/31/2015 Pt Vco8234 Mod intensity - 2.0-3.0 12/31/2015 Pt Wem4561 Hi intensity - 3.0-4.0 12/31/2015 Pt Mjp2506 PT 35.6 seconds 12/25/2015 Pt Hav4167 INR 3.9 12/25/2015 Pt Zpd7573 Low Intensity - 1.5-2.0 12/25/2015 Pt Usy9726 Mod intensity - 2.0-3.0 12/25/2015 Pt Ysj2988 Hi intensity - 3.0-4.0 12/25/2015 Uric Acid Ord77 Uric A 5.9 mg/dL 11/21/2015 Pt Nqy4912 PT 30.8 seconds 11/21/2015 Pt Kcl4088 INR 3.2 11/21/2015 Pt Xkc8939 Low Intensity - 1.5-2.0 11/21/2015 Pt Wof3274 Mod intensity - 2.0-3.0 11/21/2015 Pt Bgw1637 Hi intensity - 3.0-4.0 11/21/2015 Cbc With Differential Ord2 WBC 10.76 K/ul 11/20/2015 Cbc With Differential Ord2 RBC 4.04 M/ul 11/20/2015 Cbc With Differential Ord2 HGB 12.1 g/dl 11/20/2015 Cbc With Differential Ord2 Neut% 65.5 % 11/20/2015 Cbc With Differential Ord2 HCT 38.5 % 11/20/2015 Cbc With Differential Ord2 MCV 95.3 fl 11/20/2015 Cbc With Differential Ord2 Lymph% 23.3 % 11/20/2015 Cbc With Differential Ord2 [place]% 8.1 % 11/20/2015 Cbc With Differential Ord2 MCH 30.0 pg 11/20/2015 Cbc With Differential Ord2 MCHC 31.4 pg 11/20/2015 Cbc With Differential Ord2 Eos% 2.7 % 11/20/2015 Cbc With Differential Ord2 PLT 413 K/ul 11/20/2015 Cbc With Differential Ord2 Baso% 0.4 % 11/20/2015 Cbc With Differential Ord2 RDW 17.4 % 11/20/2015 Cbc With Differential Ord2 Neut ABS# 7.05 K/ul 11/20/2015 Cbc With Differential Ord2 Lymph ABS# 2.51 K/ul 11/20/2015 Cbc With Differential Ord2 [place] ABS# 0.9 K/ul 11/20/2015 Cbc With Differential Ord2 Eos ABS# 0.3 K/ul 11/20/2015 Cbc With Differential Ord2 Baso ABS# 0.0 K/ul 11/20/2015 Comp Metabolic Jwu619 NA 137 mEq/L 10/22/2015 Comp Metabolic Gtg382 K 3.9 mEq/L 10/22/2015 Comp Metabolic Vll537 CL 100 mEq/L 10/22/2015 Comp Metabolic Iku697 CO2 31.0 mEq/L 10/22/2015 Comp Metabolic Tik326 AN ION GAP 10 10/22/2015 Comp Metabolic Itu297 GL UCOSE 94 mg/dL 10/22/2015 Comp Metabolic Euz408 Cr eat 1.0 mg/dL 10/22/2015 Comp Metabolic Vgl759 eG FR 55 ml/min/1.73m2 10/21 Comp Metabolic Vin290 BUN 19 mg/dL 10/22/2015 Comp Metabolic Btp346 B/ C Ratio 18.3 Ratio 10/22/2015 Comp Metabolic Kri218 CA LCIUM 8.8 mg/dL 10/22/2015 Comp Metabolic Bgt989 AL K PHOS 83 U/L 10/22/2015 Comp Metabolic Gmu824 T(SGOT) 15 U/L 10/22/2015 Comp Metabolic Ulf193 AL T(SGPT) 13 U/L 10/22/2015 Comp Metabolic Nxc827 BI LI T 0.9 mg/dL 10/22/2015 Comp Metabolic Iqt892 AL BUMIN 2.8 g/dL 10/22/2015 Comp Metabolic Cph546 TP RO 5.4 g/dL 10/22/2015 Comp Metabolic Uso983 GL OB 2.6 g/dL 10/22/2015 Comp Metabolic Tsm399 A/ G Ratio 1.1 Ratio 10/22/2015 Comp Metabolic Lpk587 Os mo 276 mOsmo 10/22/2015 Bili D Ord93 BILI D 0.1 mg/dL 10/22/2015 Bili D Ord93 BILI I 0.8 mg/dL 10/22/2015 Pt Dhn4649 PT 22.8 seconds 10/22/2015 Pt Aaw5308 INR 2.1 10/22/2015 Pt Ybj3243 Low Intensity - 1.5-2.0 10/22/2015 Pt Luq3108 Mod intensity - 2.0-3.0 10/22/2015 Pt Kvl3809 Hi intensity - 3.0-4.0 10/22/2015 Free T4 Qif615 FREE T4 1.73 ng/dL 09/16/2015 Lipid Ord30 CHOL 169 mg/dL 09/16/2015 Lipid Ord30 HDL 66.0 mg/dl 09/16/2015 Lipid Ord30 TRIG 78 mg/dL 09/16/2015 Lipid Ord30 LDL 87 mg/dL 09/16/2015 Lipid Ord30 C/HDL 2.6 Ratio 09/16/2015 Pt Dml0216 PT 28.0 seconds 09/16/2015 Pt Pcb0873 INR 2.7 09/16/2015 Pt Tfg1588 Low Intensity - 1.5-2.0 09/16/2015 Pt Rlj1887 Mod intensity - 2.0-3.0 09/16/2015 Pt Wod3484 Hi intensity - 3.0-4.0 09/16/2015 Tsh Ord6 hTSH II 1.40 uIU/mL 09/16/2015 Pt Nhw3315 PT 26.6 seconds 08/21/2015 Pt Koo3960 INR 2.6 08/21/2015 Pt Deo3667 Low Intensity - 1.5-2.0 08/21/2015 Pt Cax3610 Mod intensity - 2.0-3.0 08/21/2015 Pt Puc8640 Hi intensity - 3.0-4.0 08/21/2015 Cbc With Differential Ord2 WBC 10.67 K/ul 08/08/2015 Cbc With Differential Ord2 RBC 4.77 M/ul 08/08/2015 Cbc With Differential Ord2 HGB 14.3 g/dl 08/08/2015 Cbc With Differential Ord2 HCT 43.7 % 08/08/2015 Cbc With Differential Ord2 Neut% 60.4 % 08/08/2015 Cbc With Differential Ord2 MCV 91.6 fl 08/08/2015 Cbc With Differential Ord2 Lymph% 27.2 % 08/08/2015 Cbc With Differential Ord2 [place]% 8.2 % 08/08/2015 Cbc With Differential Ord2 MCH 30.0 pg 08/08/2015 Cbc With Differential Ord2 MCHC 32.7 pg 08/08/2015 Cbc With Differential Ord2 Eos% 3.8 % 08/08/2015 Cbc With Differential Ord2 Baso% 0.4 % 08/08/2015 Cbc With Differential Ord2 PLT 296 K/ul 08/08/2015 Cbc With Differential Ord2 RDW 16.0 % 08/08/2015 Cbc With Differential Ord2 Neut ABS# 6.44 K/ul 08/08/2015 Cbc With Differential Ord2 Lymph ABS# 2.90 K/ul 08/08/2015 Cbc With Differential Ord2 [place] ABS# 0.9 K/ul 08/08/2015 Cbc With Differential [...] D Ord93 BILI I 0.5 mg/dL 08/08/2015 Comp Metabolic Inq835 NA 141 mEq/L 08/08/2015 Comp Metabolic Bgf586 K 3.3 mEq/L 08/08/2015 Comp Metabolic Ezo996 CL 102 mEq/L 08/08/2015 Comp Metabolic Kxp650 CO2 31.0 mEq/L 08/08/2015 Comp Metabolic Xwz347 AN ION GAP 11 08/08/2015 Comp Metabolic Nmf137 GL UCOSE 83 mg/dL 08/08/2015 Comp Metabolic Lef846 Cr eat 1.0 mg/dL 08/08/2015 Comp Metabolic Kcl511 eG FR 55 ml/min/1.73m2 08/08 Comp Metabolic Wmj514 BUN 19 mg/dL 08/08/2015 Comp Metabolic Pej606 B/ C Ratio 18.3 Ratio 08/08/2015 Comp Metabolic Rnv235 CA LCIUM 8.9 mg/dL 08/08/2015 Comp Metabolic Sep242 AL K PHOS 84 U/L 08/08/2015 Comp Metabolic Crd172 T(SGOT) 20 U/L 08/08/2015 Comp Metabolic Ary283 AL T(SGPT) 18 U/L 08/08/2015 Comp Metabolic Lvq338 BI LI T 0.6 mg/dL 08/08/2015 Comp Metabolic Rgj752 AL BUMIN 3.3 g/dL 08/08/2015 Comp Metabolic Prb262 TP RO 5.9 g/dL 08/08/2015 Comp Metabolic Ape579 GL OB 2.6 g/dL 08/08/2015 Comp Metabolic Hjt245 A/ G Ratio 1.3 Ratio 08/08/2015 Comp Metabolic Ijp805 Os mo 283 mOsmo 08/08/2015 Pt Tbl2818 PT 31.8 seconds 08/05/2015 Pt Bke7299 INR 3.2 08/05/2015 Pt Xmg6093 Low Intensity - 1.5-2.0 08/05/2015 Pt Huw7966 Mod intensity - 2.0-3.0 08/05/2015 Pt Lsf7689 Hi intensity - 3.0-4.0 08/05/2015 Pt Mtu7447 PT 27.4 seconds 06/27/2015 Pt Wwi8758 INR 2.6 06/27/2015 Pt Yvz2869 Low Intensity - 1.5-2.0 06/27/2015 Pt Snn4807 Mod intensity - 2.0-3.0 06/27/2015 Pt Pce6844 Hi intensity - 3.0-4.0 06/27/2015 Comp Metabolic Lcz144 NA 140 mEq/L 05/31/2015 Comp Metabolic Olj297 K 3.3 mEq/L 05/31/2015 Comp Metabolic Zvg721 CL 99 mEq/L 05/31/2015 Comp Metabolic Qme169 CO2 30.0 mEq/L 05/31/2015 Comp Metabolic Col870 AN ION GAP 14 05/31/2015 Comp Metabolic Imt808 GL UCOSE 70 mg/dL 05/31/2015 Comp Metabolic Tgn098 Cr eat 1.0 mg/dL 05/31/2015 Comp Metabolic Vma550 eG FR 55 ml/min/1.73m2 05/31 Comp Metabolic Fkg854 BUN 23 mg/dL 05/31/2015 Comp Metabolic Zbe071 B/ C Ratio 22.1 Ratio 05/31/2015 Comp Metabolic Ybx296 CA LCIUM 8.9 mg/dL 05/31/2015 Comp Metabolic Ugh931 AL K PHOS 86 U/L 05/31/2015 Comp Metabolic Qzi728 T(SGOT) 28 U/L 05/31/2015 Comp Metabolic Viq305 AL T(SGPT) 30 U/L 05/31/2015 Comp Metabolic Opf024 BI LI T 0.4 mg/dL 05/31/2015 Comp Metabolic Dps880 AL BUMIN 3.3 g/dL 05/31/2015 Comp Metabolic Xhu907 TP RO 6.0 g/dL 05/31/2015 Comp Metabolic Gjk835 GL OB 2.7 g/dL 05/31/2015 Comp Metabolic Nhv983 A/ G Ratio 1.2 Ratio 05/31/2015 Comp Metabolic Dwz265 Os mo 282 mOsmo 05/31/2015 Tsh Ord6 hTSH II 0.31 uIU/mL [...] Ord2 RDW 15.1 % 05/31/2015 Free T4 Oxo646 FREE T4 1.89 ng/dL 05/31/2015 Pt Rhk6629 PT 23.3 seconds 04/15/2015 Pt Tac8510 INR 2.2 04/15/2015 Pt Oir0161 Low Intensity - 1.5-2.0 04/15/2015 Pt Cfs7635 Mod intensity - 2.0-3.0 04/15/2015 Pt Cbb9425 Hi intensity - 3.0-4.0 04/15/2015 Pt Coq6027 PT 19.5 seconds 04/04/2015 Pt Rcr1302 INR 1.7 04/04/2015 Pt Ufl4551 Low Intensity - 1.5-2.0 04/04/2015 Pt Jnu5607 Mod intensity - 2.0-3.0 04/04/2015 Pt Iwh9316 Hi intensity - 3.0-4.0 04/04/2015 Pt Cly7821 PT 39.8 seconds 04/01/2015 Pt Zfz5248 INR 4.3 04/01/2015 Pt Drw1604 Low Intensity - 1.5-2.0 04/01/2015 Pt Vle0175 Mod intensity - 2.0-3.0 04/01/2015 Pt Haa5805 Hi intensity - 3.0-4.0 04/01/2015 Pt Koi3024 PT 31.4 seconds 02/28/2015 Pt Bcv3891 INR 3.2 02/28/2015 Pt Tjn7207 Low Intensity - 1.5-2.0 02/28/2015 Pt Jjv2194 Mod intensity - 2.0-3.0 02/28/2015 Pt Zoq2990 Hi intensity - 3.0-4.0 02/28/2015 Metabolic Ord15 [...] Metabolic Ord15 CALCIUM 8.7 mg/dL 02/28/2015 Pt Vuf0219 PT 23.2 seconds 01/18/2015 Pt Bhq5140 INR 2.1 01/18/2015 Pt Qvq9740 Low Intensity - 1.5-2.0 01/18/2015 Pt Tsg6781 Mod intensity - 2.0-3.0 01/18/2015 Pt Wik9372 Hi intensity - 3.0-4.0 01/18/2015 Pt Lys7844 PT 18.2 seconds 01/10/2015 Pt Krh5839 INR 1.6 01/10/2015 Pt Auj2168 Low Intensity - 1.5-2.0 01/10/2015 Pt Ars6997 Mod intensity - 2.0-3.0 01/10/2015 Pt Ndx0731 Hi intensity - 3.0-4.0 01/10/2015 Review of [...] 03/24/2018 ADMIN PNEUMOCOCCAL V ACCINE SNOMED CT: 92181698 CPT-4: G0009 03/24/2018 FLU VACC PRSV FREE I NC ANTIG Formatting Model/CDA Sections, Assigned to/Dorothea Tan CPT-4: 67005Ujbxvvu 03/24/2018 Pneumococcal Polysac charide Vaccine, 23-Valent, Ad CPT-4: 00783 03/24/2018 TRIAMCINOLONE ACET I [place] NOS CPT-4: J3301 06/15/2017 THER/PROPH/DIAG INJ SC/IM CPT-4: 38475 06/15/2017 ADMIN PNEUMOCOCCAL V ACCINE SNOMED CT: 54341760 CPT-4: G0009 03/16/2017 ADMIN INFLUENZA VIRU S VAC CPT-4: G0008 03/16/2017 FLU VAC NO PRSV 4 VA L 3 YRS+ CPT-4: 27955 03/16/2017 PNEUMOCOCCAL VACC [address]: 42417010 CPT-4: 79923 03/16/2017 URINALYSIS NONAUTO W /O SCOPE CPT-4: 41868 08/26/2016 THER/PROPH/DIAG INJ SC/IM CPT-4: 27129 07/22/2016 TRIAMCINOLONE ACET I [place] NOS CPT-4: J3301 07/22/2016 ROCEPHIN, PER 250 MG CPT-4: J0696 07/22/2016 TRIAMCINOLONE ACET I [place] NOS CPT-4: J3301 02/05/2015 Vital Signs Date Vital 07/11/2018 Blood Pressure 1: 102/68 Code: 8480-6 BMI: 34.5 Code: 67847-7 Heart Rate 1: 101 bpm Height: 5'7" SpO2: 98% Weight: 220 lbs 03/24/2018 Blood Pressure 1: 130/72 Code: 8480-6 BMI: 33.4 Code: 22787-6 Heart Rate 1: 82 bpm Height: 5'7" SpO2: 93% Weight: 213 lbs 11/18/2017 Blood Pressure 1: 128/70 Code: 8480-6 BMI: 33.6 Code: 05160-1 Heart Rate 1: 98 bpm Height: 5'7" SpO2: 97% Weight: 214 lbs 8 oz 09/30/2017 Blood Pressure 1: 100/50 Code: 8480-6 BMI: 34.0 Code: 25137-4 Heart Rate 1: 66 bpm Height: 5'7" SpO2: 96% Weight: 217 lbs 08/17/2017 Blood Pressure 1: 104/60 Code: 8480-6 BMI: 33.7 Code: 78322-9 Heart Rate 1: 99 bpm Height: 5'7" SpO2: 97% Weight: 215 lbs 06/15/2017 Blood Pressure 1: 120/64 Code: 8480-6 BMI: 33.5 Code: 17269-2 Heart Rate 1: 91 bpm Height: 5'7" SpO2: 94% Weight: 214 lbs 04/01/2017 Blood Pressure 1: 110/68 Code: 8480-6 BMI: 154.4 Code: 29510-5 Heart Rate 1: 66 bpm Height: 2'7" SpO2: 95% Weight: 211 lbs 03/16/2017 Blood Pressure 1: 130/72 Code: 8480-6 BMI: 33.0 Code: 56297-3 Heart Rate 1: 95 bpm Height: 5'7" SpO2: 97% Weight: 211 lbs 02/09/2017 Blood Pressure 1: 120/70 Code: 8480-6 BMI: 32.9 Code: 63975-7 Heart Rate 1: 78 bpm Height: 5'7" SpO2: 96% Weight: 210 lbs 10/13/2016 Blood Pressure 1: 118/76 Code: 8480-6 BMI: 32.6 Code: 93616-5 Heart Rate 1: 97 bpm Height: 5'7" SpO2: 98% Weight: 208 lbs 07/31/2016 Blood Pressure 1: 110/64 Code: 8480-6 BMI: 32.1 Code: 65271-8 Heart Rate 1: 79 bpm Height: 5'7" SpO2: 94% Weight: 205 lbs 07/22/2016 Blood Pressure 1: 108/ Code: 8480-6 BMI: 32.1 Code: 75548-4 Heart Rate 1: 71 bpm Height: 5'7" SpO2: 97% Temperature: 36.9 (C ) / 98.4 (F) Weight: 205 lbs 05/01/2016 Blood Pressure 1: 120/72 Code: 8480-6 BMI: 32.7 Code: 51364-8 Heart Rate 1: 75 bpm Height: 5'7" SpO2: 94% Weight: 209 lbs 04/06/2016 Blood Pressure 1: 106/62 Code: 8480-6 BMI: 32.7 Code: 98000-8 Heart Rate 1: 83 bpm Height: 5'7" SpO2: 97% Weight: 209 lbs 03/06/2016 Blood Pressure 1: 11268 Code: 8480-6 BMI: 32.7 Code: 38800-1 Heart Rate 1: 90 bpm Height: 5'7" SpO2: 97% Weight: 209 lbs 03/03/2016 Blood Pressure 1: 120/62 Code: 8480-6 BMI: 32.7 Code: 06254-7 Heart Rate 1: 92 bpm Height: 5'7" SpO2: 98% Weight: 209 lbs 02/07/2016 Blood Pressure 1: 110/64 Code: 8480-6 BMI: 32.7 Code: 13330-5 Heart Rate 1: 87 bpm Height: 5'7" SpO2: 97% Weight: 209 lbs 12/13/2015 Blood Pressure 1: 110/64 Code: 8480-6 BMI: 33.5 Code: 78832-4 Heart Rate 1: 90 bpm Height: 5'7" SpO2: 97% Weight: 214 lbs 12/03/2015 Blood Pressure 1: 132/76 Code: 8480-6 BMI: 33.4 Code: 91222-8 Heart Rate 1: 82 bpm Height: 5'7" SpO2: 99% Weight: 213 lbs 11/20/2015 Blood Pressure 1: 108/68 Code: 8480-6 BMI: 32.4 Code: 42502-9 Heart Rate 1: 77 bpm Height: 5'7" SpO2: 97% Weight: 207 lbs 09/17/2015 Blood Pressure 1: 122/76 Code: 8480-6 BMI: 33.0 Code: 07528-1 Heart Rate 1: 91 bpm Height: 5'7" SpO2: 97% Weight: 211 lbs 05/31/2015 Blood Pressure 1: 128/82 Code: 8480-6 BMI: 33.4 Code: 42988-2 Heart Rate 1: 98 bpm Height: 5'7" SpO2: 99% Weight: 213 lbs 02/05/2015 Blood Pressure 1: 128/80 Code: 8480-6 BMI: 32.6 Code: 83051-3 Heart Rate 1: 86 bpm Height: 5'7" SpO2: 97% Weight: 208 lbs 11/20/2014 Blood Pressure 1: 128/90 Code: 8480-6 BMI: 30.9 Code: 56933-1 Heart Rate 1: 94 bpm Height: 5'7" [...] Findings Denies fever 05/31/2015 None hypothyroid 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 02/05/2015 None hypothyroid Pertinent Findings coarse [...] Denies extremity weakness 11/20/2014 None hypothyroid 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 P ATIENT, LEVEL IV Diagnosis: Atrophy of thyroid (acquired)[ICD10: E03.4] Diagnosis: Essential (primary) hypertension[ICD10: I10] Diagnosis: Other fatigue[ICD10: R53.83] Diagnosis: Localized edema[ICD10: R60.0] Valerie Pisano MD, [facility] CPT-4: 41547 07/11/2018 ([id number]) 50101 EST. P ATIENT, LEVEL IV Diagnosis: Essential (primary) hypertension[ICD10: I10] Diagnosis: Atrophy of thyroid (acquired)[ICD10: E03.4] Diagnosis: Chronic atrial fibrillation[ICD10: I48.2] Valerie Pisano MD, [facility] CPT-4: 57477 03/24/2018 ([id number]) 40708 EST. P ATIENT, LEVEL IV Diagnosis: Essential (primary) hypertension[ICD10: I10] Diagnosis: Atrophy of thyroid (acquired)[ICD10: E03.4] Diagnosis: Chronic atrial fibrillation[ICD10: I48.2] Valerie Pisano MD, [facility] CPT-4: 21309 11/18/2017 47907 EST. PATIENT, LEVEL IV Diagnosis: Localized edema[ICD10: R60.0] Roxie Pisano MD, [facility] CPT-4: 69279 09/30/2017 ([id number]) 17125 EST. P ATIENT, LEVEL III Diagnosis: Essential (primary) hypertension[ICD10: I10] Valerie Pisano MD, [facility] CPT-4: 07884 08/17/2017 ([id number]) 60900 EST. P ATIENT, LEVEL IV Diagnosis: Essential (primary) hypertension[ICD10: I10] Diagnosis: Atrophy of thyroid (acquired)[ICD10: E03.4] Diagnosis: Chronic atrial fibrillation[ICD10: I48.2] Diagnosis: Cervicalgia[ICD10: M54.2] Diagnosis: Other muscle spasm[ICD10: M62.838] Valerie Pisano MD, [facility] CPT- 4: 29174 06/15/2017 28997 EST. PATIENT, LEVEL III Diagnosis: Laceration without foreign body of other finger without damage to nail, initial encounter[ICD10: S61.218A] Roxie Pisano MD, [facility] CPT-4: 95354 04/01/2017 ([id number]) 20263 EST. 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 P ATIENT, LEVEL IV Diagnosis: Essential (primary) hypertension[ICD10: I10] Diagnosis: Chronic atrial fibrillation[ICD10: I48.2] Diagnosis: Tinea corporis[ICD10: B35.4] Diagnosis: senior living (current) use of anticoagulants[ICD10: Z79.01] Diagnosis: Other skin changes[ICD10: R23.8] Valerie Pisano MD, [facility] CPT-4: 60340 10/13/2016 86490 EST. PATIENT, LEVEL III Diagnosis: Other acute sinusitis[ICD10: J01.80] Diagnosis: Other allergic rhinitis[ICD10: J30.89] Roxie Pisano MD, [facility] CPT-4: 24011 07/31/2016 ([id number]) 82900 EST. P ATIENT, LEVEL III Diagnosis: Acute recurrent maxillary sinusitis[ICD10: J01.01] Valerie Pisano MD, C CPT-4: 06933 07/22/2016 14332 EST. PATIENT, LEVEL IV Diagnosis: Essential (primary) hypertension[ICD10: I10] Diagnosis: Other allergic rhinitis[ICD10: J30.89] Diagnosis: Localized edema[ICD10: R60.0] Roxie Pisano MD, [facility] CPT-4: 58154 05/01/2016 56778 EST. PATIENT, LEVEL III Diagnosis: Cellulitis of left lower limb[ICD10: L03.116] Diagnosis: Localized edema[ICD10: R60.0] Roxie Pisano MD, [facility] CPT-4: 41165 04/06/2016 ([id number]) Miscellaneou s no charge Diagnosis: Cellulitis of left lower limb[ICD10: L03.116] Diagnosis: Localized edema[ICD10: R60.0] Roxie Pisano MD, [facility] CPT-4: 91545 03/10/2016 ([id number]) Miscellaneou s no charge Diagnosis: Cellulitis of left lower limb[ICD10: L03.116] Roxie Pisano MD, [facility] CPT-4: 71150 03/06/2016 81276 EST. PATIENT, LEVEL IV Diagnosis: Cellulitis of left lower limb[ICD10: L03.116] Diagnosis: Localized edema[ICD10: R60.0] Roxie Pisano MD, [facility] CPT-4: 04987 03/03/2016 ([id number]) 82424 EST. 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 P ATIENT, LEVEL III Diagnosis: Iliotibial band syndrome, right leg[ICD10: M76.31] Diagnosis: Localized edema[ICD10: R60.0] Brielle Pisano MD, [facility] CPT- 4: 00045 12/13/2015 ([id number]) 14834 EST. P ATIENT, LEVEL III Diagnosis: Localized edema[ICD10: R60.0] Diagnosis: Essential (primary) hypertension[ICD10: I10] Brielle Pisano MD, [facility] CPT-4: 32326 12/03/2015 ([id number]) 38358 EST. 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 P ATIENT, LEVEL IV Diagnosis: Localized edema[ICD10: R60.0] Diagnosis: Other specified hypothyroidism[ICD10: E03.8] Diagnosis: Essential (primary) hypertension[ICD10: I10] Brielle Pisano MD, [facility] CPT-4: 46889 05/31/2015 ([id number]) 93363 EST. P ATIENT, LEVEL III Diagnosis: ALLERGIC RHINITIS[ICD9: 477.9] Diagnosis: ESSENTIAL HYPERTENSION[ICD9: 401.9] Brielle Pisano MD, [facility] CPT-4: 55189 02/05/2015 ([id number]) OFFICE VISI , [facility] - LEVEL 4 Diagnosis: ESSENTIAL HYPERTENSION[ICD9: 401.9] Diagnosis: HYPOTHYROIDISM[ICD9: 244.9] Diagnosis: ACTINIC KERATOSIS[ICD9: 702.0] Valerie Pisano MD, [facility] CPT-4: 70633 11/20/2014 Plan of Care Planned Activity Notes C odes Status Date Appointment: Brielle Cavazos WPtel: [address] [place], [place] [phone] [place] (15 min) Moderate 07/12/2018 Visit Plan: [...] twice daily. 07/11/2018 Appointment: Valerie Pisano WPtel: [phone] [facility] (15 min) Moderate 07/11/2018 Patient Education: Patient [...] given today. 03/24/2018 Appointment: [phone] (15 min) Moderate 03/24/2018 Patient Education: Patient [...] of control. 11/18/2017 Appointment: Valerie Pisano WPtel: [phone] [facility] (15 min) Moderate 11/18/2017 Patient Education: Patient Medication Summary Completed 11/18/2017 Referral: Via [facility] WPtel: [address] [facility] Pt notified at appointment Appointment Confirmed 10/01/2017 [...] Unna Boots 09/30/2017 Appointment: Roxie Cazares WPtel: [facility] (30 min) Complex 09/30/2017 Patient Education: Patient Medication Summary Completed 09/30/2017 Care Plan: Referral Order SNOMED-CT : [id number] Pending 09/30/2017 Visit Plan: Hypertension - well [...] 08/17/2017 Appointment: Val[phone] [facility] (15 min) Moderate 08/17/2017 Patient Education: Patient [...] im bristol myeres squibb - lot # [id number] expires september 2018 06/15/2017 Appointment: Val[facility]ano [facility] [phone] [facility] (15 min) Moderate 06/15/2017 Patient Education: Patient Medication Summary Completed 06/15/2017 Care Plan: Referral Order SNOMED-CT : [id number] Pending 06/15/2017 Appointment: Nurse Visit 04/05/2017 Appointment: [...] booster. 04/01/2017 App[facility]ment: [phone] (15 min) Moderate 04/01/2017 Patient [...] shot today 03/16/2017 Appointment: [phone] (15 min) Moderate 03/16/2017 Patient Education: Patient [...] allergy spray. 02/09/2017 Appointment: [phone] [facility] (15 min) Moderate 02/09/2017 Patient Education: Patient Medication Summary Completed 02/09/2017 Patient Education: Obesity Completed 02/09/2017 Patient Education: Hypertension Completed 02/09/2017 Patient Education: Patient Medication Summary Completed 01/25/2017 Visit Plan: Hypertension - sana padron - [...] nystatin 10/13/2016 Appointment: [phone] [facility] [place] (15 min) Moderate 10/13/2016 Patient Education: Patient Medication Summary Completed 10/13/2016 Patient Education: Obesity Completed 10/13/2016 Patient Education: Hypertension Completed 10/13/2016 Care Plan: Urine Culture Pending 08/31/2016 Appointment: Roxie Cazares WPtel: [phone] [id number] Lab Draw 08/27/2016 Appointment: Nurse Visit 08/26/2016 [...] spray. 07/31/2016 Appointment: Brielle Cavazos WPtel: [phone] [id number] (30 min) Complex 07/31/2016 Patient Education: Patient Medication Summary Completed 07/31/2016 Patient Education: Obesity Completed 07/31/2016 Visit Plan: Sinusitis - Pt has acut e infection - pain in face, maxillary region, Pt informed to use decongestant, RX given to patient, sinus rinses also recommended. Call if symptoms do not show improvement. 07/22/2016 Appointment: Valerie Pisano WPtel: [phone] [facility] (15 min) Moderate 07/22/2016 Patient [...] edema. 05/01/2016 Appointment: Brielle Cavazos WPtel: [phone] [id number] (30 min) Complex 05/01/2016 [...] 04/06/2016 Appointment: Roxie Cazares WPtel: [facility]3 [facility] (30 min) Complex 04/06/2016 Patient Education: Patient Medication Summary Completed 04/06/2016 Patient Education: Obesity Completed 04/06/2016 Visit Plan: left foot - improved - pt finished with antibiotics - continue to monitor - notify clinic with any concerns. Repeat INR today. 03/10/2016 Appointment: Brielle Cavazos WPtel: [phone] [id number] (30 min) Complex 03/10/2016 Patient Education: Patient Medication Summary Completed 03/10/2016 Visit Plan: Cellulitis - continue w ith oral antibiotics as previously directed, return to clinic as previously directed, call for acute change in symptoms, worsening redness, warmth, discharge. 03/06/2016 Appointment: Brielle Cavazos WPtel: [facility]5 [id number] (15 min) Moderate 03/06/2016 Patient Education: Patient Medication Summary Completed 03/06/2016 Patient Education: Obesity Completed 03/06/2016 Visit Plan: Cellulitis - continue w ith oral antibiotics as previously directed, return to clinic as previously directed, call for acute change in symptoms, worsening redness, warmth, discharge. 03/03/2016 Appointment: Brielle Cavazos WPtel: [facility]5 [id number] (15 min) Moderate 03/03/2016 Patient Education: Patient [...] and 3.5. 02/07/2016 Appointment: Brielle Cavazos WPtel: [id number] (30 min) Complex 02/07/2016 Patient Education: Patient Medication Summary Completed 02/07/2016 Patient Education: Obesity Completed 02/07/2016 Patient Education: Hypertension Completed 02/07/2016 Appointment: Brielle Cavazos WPtel: [facility]5 [phone] (30 min) Complex 02/04/2016 Visit Plan: Iliotibial [...] edema. 12/13/2015 Appointment: Brielle Cavazos WPtel: [phone] (15 min) Moderate 12/13/2015 Patient Education: [...] at home. 12/03/2015 Appointment: Brielle Cavazos WPtel: [facility]5 [id number] (30 min) Complex 12/03/2015 Patient Education: Patient [...] Appointment: Valerie Pisano WPtel: [facility]5 [facility] (15 min) Moderate 01/29/2015 Visit Plan: [...] of control. 11/20/2014 Appointment: Valerie Pisano WPtel: [phone] [facility] [place] ([place]) New Patient 11/20/2014 Patient Education: Patient Medication Summary Completed 11/20/2014 Patient Education: Hypertension Completed 11/20/2014 Patient Education: Patient Medication Summary Completed 10/19/2014 Referral: [facility] WPtel: Referral Appointment Requested Referral: [facility] WPtel: [address] [place] [id number] [place] Referral Appointment Confirmed Instructions Comment . [...] prevnar and flu shot today 1 pill wed/wed/wed, 1/2 pill tues/thurs/sat/sun take [...] of control. 1 pill wed/wed/wed, 1/2 pill tu/th/ sat/sun take - This is a new [...] the office. get blood work one w [place] before next appt - fasting labs Decrease [...] neck muscles. allergies - kenalog 40mg im [employer] squib[employer] - lot # [id number] expires september 2018 check coumadin level on [...] readings at home. . left foot - [facility] - pt finished with antibiotics - continue to monitor - notify clinic with any concerns. Repeat INR today.
--- OUTSIDE RECORDS SUMMARY | 2019-09-12 11:57 | XMS REPORT | CCD ---
Author Author Clara Pisano Organization [facility] Address [address] [place] [address] Phone Care Team Providers Care Transitions Rn Care Coordinator Name Role Phone PP Unavailable CCM Unavailable Summary Purpose Interface Exchange Insurance Providers Payer name Policy type / Coverage type Covered green party ID Effective Begin Date Effective End Date WPS Medicare Part B Medicare Part B [id number] 2018 Unknown [employer] Medicare Part B [id number] 2018 Unknown Family history Sister Diagnosis Age At Onset defect Unknown Breast cancer Unknown Daughter Diagnosis Age At Onset Breast cancer Unknown Mother Diagnosis Age At Onset No Family Disease Entered N/A Social History Social History Element Codes Description Effective Dates Marital status Unknown M arried Lane 11/20/2014 Number of children Unknown 6 11/20/2014 Employment Unknown Retir ed 11/20/[address]: 5684858 Quit over 10 years ago 1965 11/20/2014 [...] ICD-9: 883.0 ICD-10: S61.218A Active 04/01/2017 Unknown emt intermediate (current) use of anticoagulants ICD-9: V58.61 [...] Unknown HYPOTHYROIDISM ICD-9: 244.9 Active 11/19/2014 Unknown [facility] current us e of anticoagulant therapy ICD-9: [...] encounter ICD-9: 883.0 ICD-10: S61.218A 04/01/2017 Active emt intermediate (current) use of anticoagulants ICD-9: V58.61 [...] 11/19/2014 Active HYPOTHYROIDISM ICD-9: 244.9 11/19/2014 Active emt intermediate current us e of anticoagulant therapy ICD-9: V58.61 10/19/2014 Active Medications Medication Codes Instruc tions Start Date Stop Date Sta Fill Instructions Coumadin 4 mg tablet RxNorm: 738559 1 Tablet(s) PO daily except 1.5 pills on WEDNESDAY AND Wednesday07/11/2018 07/05/2019 Active this is an update to her RX - she will let you know when she needs refill furosemide 40 mg tablet RxNorm: 626565 1 Tablet(s) BID take 1.5 tabs twice a da y x 7 days then 1 pill daily thereafter 07/11/2018 02/05/2019 Active warfarin 5 mg tablet RxNorm: 283976 Tablet(s) TAKE ONE TABLET BY MOUTH DAILY EXCEPT T/TH TAKE 4 MG 04/06/2018 08/22/2019 Active diltiazem 60 mg tablet RxNorm: 279978 1/2 Tablet(s) PO QID 03/24/2018 No Stop Date Active levothyroxine 125 mc g tablet RxNorm: 468013 TAKE ONE TABLET BY MO UTH DAILY ON WEDNESDAY, WED, AND WEDNESDAY, AND 1/2 TABLET ON , , WED AND WEDNESDAY. TAKE ON AN EMPTY STOMACH 02/02/2018 07/31/2018 Active Coumadin 4 mg tablet RxNorm: 093591 TAKE ONE TABLET BY MOUTH DAILY ON AND Wednesday10/14/2017 07/10/2018 Inactive nystatin 100,000 uni t/gram topical cream RxNorm: 185660 1 Application TOP TID 08/17/2017 No Stop Date Active triamcinolone aceton sreekanth 0.025 % topical cream RxNorm: 5973047 1 Application TOP BI D 08/17/2017 No Stop Date Active Voltaren 1 % topical gel RxNorm: 472817 2 Gram(s) TOP TID luiz ly to shoulder and neck 08/17/2017 No Stop Date Active levothyroxine 125 mc g tablet RxNorm: 883030 1 Tablet(s) UD 1 pill wed/wed/wed, 1/2 pill //wed/wed take ON AN EMPTY STOMACH 08/05/2017 02/01/2018 Inactive Coumadin 4 mg tablet RxNorm: 319004 1 Tablet(s) PO Wed/07/29/2017 10/13/2017 Inactive warfarin 5 mg tablet RxNorm: 573060 TAKE 1 AND 1/2 TABLETS BY MOUTH ON AND WEDNESDAY. TAKE ONLY 1 TABLET BY MOUTH ALL OTHER DAYS OF THE WEEK 07/12/2017 04/05/2018 In active furosemide 40 mg tablet RxNorm: 731111 Tablet(s) BID TAKE ONE TABLET BY MOUTH D AILY 06/15/2017 07/10/2018 Inactive Voltaren 1 % topical gel RxNorm: 719233 2 Gram(s) TOP TID luiz ly to shoulder and neck 06/15/2017 08/16/2017 Inactive Keflex 500 mg capsule RxNorm: 965073 1 Capsule(s) PO TID 04/01/2017 04/07/2017 Inactive furosemide 40 mg tablet RxNorm: 660825 TAKE ONE TABLET BY MOUTH DAILY 03/18/2017 06/14/2017 In active Claritin-D 12 Hour 5 mg-120 mg tablet,extended release RxNorm: 3483860 1 Tablet(s) PO BID 03/16/2017 05/14/2017 Inactive Lipitor 20 mg tablet RxNorm: 089214 1 Tablet(s) PO daily 02/09/2017 03/10/2017 Inactive lisinopril 2.5 mg ta blet RxNorm: 192905 1 Tablet(s) PO daily 02/09/2017 03/10/2017 Inactive Nasonex 50 mcg/actua tion [place] RxNorm: 3281848 1 [place] NASAL BID 02/09/2017 09/06/2017 Inactive levothyroxine 125 mc g tablet RxNorm: 536690 1 Tablet(s) UD 1 pill wed/wed/wed, 1/2 pill //sat/sun take ON AN EMPTY STOMACH 02/09/2017 08/04/2017 Inactive fluorouracil 5 % top ical cream RxNorm: 062795 1 Application TOP BID 02/09/2017 02/18/2017 Inactive potassium chloride E R 20 mEq tablet,extended release RxNorm: 504711 Tablet(s) TAKE ONE TABLET BY MOUTH DAILY 02/08/2017 02/02/2018 Inactive warfarin 5 mg tablet RxNorm: 771263 TAKE 1 AND 1/2 TABLETS BY MOUTH ON AND WEDNESDAY. TAKE ONLY 1 TABLET BY MOUTH ALL OTHER DAYS OF THE WEEK 12/14/2016 05/30/2017 In active potassium chloride E R 20 mEq tablet,extended release RxNorm: 171213 TAKE ONE TABLET BY MOUTH DAILY 10/29/2016 01/26/2017 Inactive warfarin 5 mg tablet RxNorm: 812777 TAKE 1 AND 1/2 TABLETS BY MOUTH ON AND WEDNESDAY. TAKE ONLY 1 TABLET BY MOUTH ALL OTHER DAYS OF THE WEEK 10/27/2016 12/13/2016 In active nystatin 100,000 uni t/gram topical cream RxNorm: 777814 1 Application TOP TID 10/13/2016 08/16/2017 In active nitrofurantoin 50 mg capsule RxNorm: 623855 1 Capsule(s) PO BID 09/04/2016 09/03/2016 Inactive nitrofurantoin macro crystal 50 mg capsule RxNorm: 680408 1 Capsule(s) PO BID 09/04/2016 09/10/2016 In active Cipro 500 mg tablet RxNorm: 596374 1 Tablet(s) PO BID 08/26/2016 10/12/2016 Inactive Zyrtec 10 mg tablet RxNorm: 7834663 1 Tablet(s) PO daily 07/31/2016 08/29/2016 Inactive prednisone 20 mg tablet RxNorm: 926790 2 Tablet(s) PO daily 07/31/2016 08/02/2016 Inactive Kenalog 40 mg/mL zohra pension for injection RxNorm: 8293942 Milliliter(s) Inj 07/22/2016 07/22/2016 In active ceftriaxone 500 mg s olution for injection RxNorm: 9259343 Inj 07/22/2016 07/22/2016 Inactive Flonase Allergy Reli ef 50 mcg/actuation nasal spray,suspension RxNorm: 5016898 1 [place] NASAL BID 07/22/2016 08/20/2016 Inactive azithromycin 250 mg tablet RxNorm: 430478 2 Tablet(s) PO on day #1, then 1 pill daily x 4 days 07/22/2016 10/12/2016 Inactive warfarin 5 mg tablet RxNorm: 241178 TAKE 1 AND 1/2 TABLETS BY MOUTH ON AND WEDNESDAY. TAKE ONLY 1 TABLET BY MOUTH ALL OTHER DAYS OF THE WEEK 07/09/2016 09/30/2016 In active levothyroxine 125 mc g tablet RxNorm: 345538 Tablet(s) TAKE ONE TA BLET BY MOUTH DAILY ON AN EMPTY STOMACH 06/23/2016 02/08/2017 Inactive levothyroxine 125 mc g tablet RxNorm: 093257 TAKE ONE TABLET BY MO UTH DAILY ON AN EMPTY STOMACH 06/23/2016 06/22/2016 Inactive levothyroxine 125 mc g tablet RxNorm: 983021 TAKE ONE TABLET BY MO [facility] DAILY ON AN EMPTY STOMACH 06/23/2016 08/04/2017 Inactive cetirizine 10 mg tablet RxNorm: 3144685 TAKE ONE TABLET BY MOUTH DAILY 06/16/2016 10/13/2016 In active furosemide 40 mg tablet RxNorm: 000132 Tablet(s) TAKE ONE TABLET BY MOUTH DAILY 06/05/2016 12/01/2016 In active cetirizine 10 mg tablet RxNorm: 8982078 1 Tablet(s) PO daily 05/01/2016 05/30/2016 Inactive Levaquin 250 mg tablet RxNorm: 236701 Tablet(s) PO 2 pills day one and 1 pill day 2-7 04/06/2016 07/21/2016 Inactive warfarin 5 mg tablet RxNorm: 215377 Tablet(s) 1/2 TABLETS BY MOUTH ON AND WEDNESDAY. TAKE ONLY 1 TABLET BY MOUTH ALL OTHER DAYS OF THE WEEK 03/18/2016 07/07/2016 In active triamcinolone aceton sreekanth 0.025 % topical cream RxNorm: 6183414 1 Application TOP BI D 03/10/2016 08/16/2017 In active potassium chloride E R 20 mEq tablet,extended release RxNorm: 700000 1 Tablet(s) PO daily 03/04/2016 06/01/2016 Inactive Levaquin 250 mg tablet RxNorm: 462426 Tablet(s) PO 2 pills day one and 1 pill day 2-7 03/04/2016 04/05/2016 Inactive Levaquin 250 mg tablet RxNorm: 545169 Tablet(s) PO 2 pills day one and 1 pill day 2-7 03/03/2016 03/03/2016 Inactive potassium chloride E R 20 mEq tablet,extended release RxNorm: 213542 1 Tablet(s) PO daily 03/03/2016 03/03/2016 Inactive Cipro 500 mg tablet RxNorm: 816064 1 Tablet(s) PO BID 02/20/2016 07/21/2016 Inactive Cipro 500 mg tablet RxNorm: 984407 1 Tablet(s) PO BID 02/20/2016 02/19/2016 Inactive furosemide 40 mg tablet RxNorm: 276551 TAKE ONE TABLET BY MOUTH DAILY 01/27/2016 01/26/2016 In active warfarin 5 mg tablet RxNorm: 779091 TAKE 1 AND 1/2 TABLETS BY MOUTH ON AND WEDNESDAY. TAKE ONLY 1 TABLET BY MOUTH ALL OTHER DAYS OF THE WEEK 01/27/2016 01/26/2016 In active furosemide 40 mg tablet RxNorm: 483783 TAKE ONE TABLET BY MOUTH DAILY 01/27/2016 06/04/2016 In active warfarin 5 mg tablet RxNorm: 635355 TAKE 1 AND 1/2 TABLETS BY MOUTH ON AND WEDNESDAY. TAKE ONLY 1 TABLET BY MOUTH ALL OTHER DAYS OF THE WEEK 01/27/2016 03/17/2016 In active potassium chloride E R 20 mEq tablet,extended release RxNorm: 335386 1 Tablet(s) PO daily 11/20/2015 03/02/2016 Inactive furosemide 40 mg tablet RxNorm: 001990 TAKE ONE TABLET BY MOUTH DAILY 11/12/2015 01/26/2016 In active Zovirax 5 % topical cream RxNorm: 705981 TOP QID 0 09/24/2015 09/23/2015 Inactive Zovirax 5 % topical cream RxNorm: 709489 TOP QID 0 09/24/2015 11/19/2015 Inactive nystatin 100,000 uni t/gram topical cream RxNorm: 874196 1 Application TOP TID 09/17/2015 10/12/2016 In active warfarin 5 mg tablet RxNorm: 340026 TAKE 1 AND 1/2 TABLETS BY MOUTH ON AND WEDNESDAY. TAKE ONLY 1 TABLET BY MOUTH ALL OTHER DAYS OF THE WEEK 08/19/2015 01/05/2016 In active loratadine 10 mg tablet RxNorm: 619197 1 Tablet(s) PO daily 07/30/2015 07/23/2016 Inactive loratadine 10 mg tablet RxNorm: 857420 1 Tablet(s) PO daily 07/30/2015 07/29/2015 Inactive furosemide 40 mg tablet RxNorm: 055329 TAKE ONE TABLET BY MOUTH DAILY 06/24/2015 11/11/2015 In active levothyroxine 125 mc g tablet RxNorm: 557948 1 Tablet(s) PO daily 05/31/2015 05/24/2016 Inactive furosemide 40 mg tablet RxNorm: 101215 1 Tablet(s) PO daily 04/05/2015 06/23/2015 Inactive warfarin 5 mg tablet RxNorm: 945370 TAKE 1 AND 1/2 TABLETS BY MOUTH ON AND WEDNESDAY. TAKE ONLY 1 TABLET BY MOUTH ALL OTHER DAYS OF THE WEEK 02/12/2015 07/29/2015 In active Flonase Allergy Reli ef 50 mcg/actuation nasal spray,suspension RxNorm: 2 [place] NASAL daily 02/05/2015 03/06/2015 Inactive Kenalog 40 mg/mL zohra pension for injection RxNorm: 8957008 Milliliter(s) Inj 02/05/2015 02/05/2015 In active warfarin 5 mg tablet RxNorm: 717186 Take 7.5mg (1 1/2 tablets) Wednesday and and 1 Tablet(s) PO (5mg) all other days 01/11/2015 02/09/2015 Inactive levothyroxine 125 mc g tablet RxNorm: 138342 1 Tablet(s) PO every other day 01/01/2015 05/30/2015 In active alternate with 150 levothyroxine 150 mc g tablet RxNorm: 906559 1 Tablet(s) PO every other day 01/01/2015 05/30/2015 In active alternate with 125 loratadine 10 mg tablet RxNorm: 543987 Tablet(s) PO as needed No Start Date Active Fish Oil 1,000 mg ca psule RxNorm: 1 Capsule(s) PO TID No Start Date Active magnesium 250 mg tablet RxNorm: 1 Tablet(s) PO daily No Start Date Active Vitamin D3 2,000 uni t tablet RxNorm: 069198 2 Tablet(s) PO daily No Start Date Active Fosamax 35 mg tablet RxNorm: 533284 1 Tablet(s) PO QW No Start Date Active levothyroxine 125 mc g tablet RxNorm: 645753 1 Tablet(s) PO daily No Start Date 12/31/2014 Inactive levothyroxine 150 mc g tablet RxNorm: 332071 1 Tablet(s) PO daily No Start Date 12/31/2014 Inactive diltiazem 60 mg tablet RxNorm: 217343 1 Tablet(s) PO QID No Start Date 03/23/2018 Inactive furosemide 40 mg tablet RxNorm: 304955 1 Tablet(s) PO daily No Start Date 04/04/2015 Inactive potassium chloride RxNorm: miscellaneous No Start Date 11/19/2015 Inactive Vitamin D2 oral RxNorm: 4018 oral No Start Date 05/31/2015 Inactive warfarin 5 mg tablet RxNorm: 953068 1 Tablet(s) PO daily No Start Date 01/10/2015 Inactive Coumadin 4 mg tablet RxNorm: 392194 1 Tablet(s) PO Wed/ No Start Date 07/28/2017 Inactive Medication Administered Medication Codes Instruc tions Start Date Status Kenalog 40 mg/mL suspension for injection RxNorm: 8411972 Milliliter 07/22/2016 No longer Active ceftriaxone 500 mg solution for injection RxNorm: 5555043 07/22/2016 No longer A ctive Kenalog 40 mg/mL suspension for injection RxNorm: 4869741 Milliliter 02/05/2015 No longer Active Immunizations Vaccine [...] initial encounter ICD-10: S61.218A ICD-9: 883.0 04/01/2017 emt intermediate (current) use of anticoagulants ICD-10: Z79.01 [...] 244.9 11/20/2014 ACTINIC KERATOSIS ICD-9: 702.0 11/20/2014 [facility] current use of anticoagulant therapy ICD-9: V58.61 [...] Code Item Item Code Result Date Pt Wgh3508 PT 25.7 seconds 07/11/2018 Pt Sfr6545 INR 2.4 07/11/2018 Pt Jnl7770 Low Intensity - 1.5-2.0 07/11/2018 Pt Wry8723 Mod intensity - 2.0-3.0 07/11/2018 Pt Xuf8005 Hi intensity - 3.0-4.0 07/11/2018 Pt Atq1542 PT 18.5 seconds 07/08/2018 Pt Dfq1029 INR 1.6 07/08/2018 Pt Hne3299 Low Intensity - 1.5-2.0 07/08/2018 Pt Jvz6917 Mod intensity - 2.0-3.0 07/08/2018 Pt Kyg0528 Hi intensity - 3.0-4.0 07/08/2018 Pt Scx3063 PT 27.3 seconds 06/29/2018 Pt Cbk5271 INR 2.6 06/29/2018 Pt Wol2606 Low Intensity - 1.5-2.0 06/29/2018 Pt Bex9974 Mod intensity - 2.0-3.0 06/29/2018 Pt Zkb0160 Hi intensity - 3.0-4.0 06/29/2018 Pt Nkv1050 PT 24.0 seconds 05/26/2018 Pt Dvt3444 INR 2.2 05/26/2018 Pt Jyk4330 Low Intensity - 1.5-2.0 05/26/2018 Pt Tfe3441 Mod intensity - 2.0-3.0 05/26/2018 Pt Vzm0692 Hi intensity - 3.0-4.0 05/26/2018 Tsh Ord6 [...] 29.6 pg 03/25/2018 Cbc With Differential Ord2 [place]% 9.5 % 03/25/2018 Cbc With Differential Ord2 [...] 2.19 K/ul 03/25/2018 Cbc With Differential Ord2 [place] ABS# 0.8 K/ul 03/25/2018 Cbc With Differential Ord2 [place] ABS# 0.3 K/ul 03/25/2018 Cbc With Differential Ord2 Baso ABS# 0.0 K/ul 03/25/2018 Lipid Ord30 CHOL 156 mg/dL 03/25/2018 Lipid Ord30 HDL 52.0 mg/dl 03/25/2018 Lipid Ord30 TRIG 98 mg/dL 03/25/2018 Lipid Ord30 LDL 84 mg/dL 03/25/2018 Lipid Ord30 C/HDL 3.0 Ratio 03/25/2018 Free T4 Qvl248 FREE T4 1.73 ng/dL 03/25/2018 Comp Metabolic Fch664 NA 143 mEq/L 03/25/2018 Comp Metabolic War836 K 4.6 mEq/L 03/25/2018 Comp Metabolic Okk930 CL 108 mEq/L 03/25/2018 Comp Metabolic Obp187 CO2 26.0 mEq/L 03/25/2018 Comp Metabolic Bcg443 AN ION GAP 14 03/25/2018 Comp Metabolic Srk841 GL UCOSE 87 mg/dL 03/25/2018 Comp Metabolic Psd937 Cr eat 1.2 mg/dL 03/25/2018 Comp Metabolic Feo637 eG FR 48 ml/min/1.73m2 03/25 Comp Metabolic Roc928 BUN 18 mg/dL 03/25/2018 Comp Metabolic Iwe538 B/ C Ratio 15.5 Ratio 03/25/2018 Comp Metabolic Yjl912 CA LCIUM 9.1 mg/dL 03/25/2018 Comp Metabolic Fel143 AL K PHOS 58 U/L 03/25/2018 Comp Metabolic Yba291 T(SGOT) 21 U/L 03/25/2018 Comp Metabolic Ejx439 AL T(SGPT) 13 U/L 03/25/2018 Comp Metabolic Cbo218 BI LI T 0.7 mg/dL 03/25/2018 Comp Metabolic Kkd381 AL BUMIN 3.2 g/dL 03/25/2018 Comp Metabolic Bil201 TP RO 5.5 g/dL 03/25/2018 Comp Metabolic Sqs448 GL OB 2.3 g/dL 03/25/2018 Comp Metabolic Nln962 A/ G Ratio 1.4 Ratio 03/25/2018 Comp Metabolic Fal357 Os mo 286 mOsmo 03/25/2018 Pt Hbp2140 PT 29.0 seconds 03/22/2018 Pt Kkw8548 INR 2.7 03/22/2018 Pt Yjj2450 Low Intensity - 1.5-2.0 03/22/2018 Pt Kmx9545 Mod intensity - 2.0-3.0 03/22/2018 Pt Kvi1188 Hi intensity - 3.0-4.0 03/22/2018 Pt Szp4983 PT 27.1 seconds 02/25/2018 Pt Pss3369 INR 2.5 02/25/2018 Pt Vmi0950 Low Intensity - 1.5-2.0 02/25/2018 Pt Sza3784 Mod intensity - 2.0-3.0 02/25/2018 Pt Wbq9699 Hi intensity - 3.0-4.0 02/25/2018 Pt Fno7562 PT 26.1 seconds 01/26/2018 Pt Zdt1701 INR 2.4 01/26/2018 Pt Toy8460 Low Intensity - 1.5-2.0 01/26/2018 Pt Mpn6653 Mod intensity - 2.0-3.0 01/26/2018 Pt Cvx1205 Hi intensity - 3.0-4.0 01/26/2018 Pt Mus6324 PT 22.8 seconds 12/24/2017 Pt Anp1778 INR 2.0 12/24/2017 Pt Kvx8102 Low Intensity - 1.5-2.0 12/24/2017 Pt Sey8835 Mod intensity - 2.0-3.0 12/24/2017 Pt Zpr1213 Hi intensity - 3.0-4.0 12/24/2017 Pt Hpz8544 PT 29.4 seconds 11/18/2017 Pt Pge1675 INR 2.8 11/18/2017 Pt Gab0287 Low Intensity - 1.5-2.0 11/18/2017 Pt Qwp2901 Mod intensity - 2.0-3.0 11/18/2017 Pt Rlx6444 Hi intensity - 3.0-4.0 11/18/2017 Pt Wmw4950 PT 26.6 seconds 09/13/2017 Pt Dlg3408 INR 2.4 09/13/2017 Pt Pdm7545 Low Intensity - 1.5-2.0 09/13/2017 Pt Spt5762 Mod intensity - 2.0-3.0 09/13/2017 Pt Xgf6862 Hi intensity - 3.0-4.0 09/13/2017 Pt Hze4864 PT 28.2 seconds 08/10/2017 Pt Xuu0347 INR 2.6 08/10/2017 Pt Bod9784 Low Intensity - 1.5-2.0 08/10/2017 Pt Xjc6409 Mod intensity - 2.0-3.0 08/10/2017 Pt Mtd9440 Hi intensity - 3.0-4.0 08/10/2017 Pt Nnp2547 PT 33.9 seconds 07/27/2017 Pt Lks4011 INR 3.3 07/27/2017 Pt Fcc9598 Low Intensity - 1.5-2.0 07/27/2017 Pt Ait3642 Mod intensity - 2.0-3.0 07/27/2017 Pt Dke0198 Hi intensity - 3.0-4.0 07/27/2017 Pt Vol2344 PT 29.1 seconds 06/29/2017 Pt Pev4444 INR 2.7 06/29/2017 Pt Vuu6381 Low Intensity - 1.5-2.0 06/29/2017 Pt Mqy2328 Mod intensity - 2.0-3.0 06/29/2017 Pt Mzk3677 Hi intensity - 3.0-4.0 06/29/2017 Pt Ovu3439 PT 30.3 seconds 06/11/2017 Pt Vpd4675 INR 2.9 06/11/2017 Pt Cat0515 Low Intensity - 1.5-2.0 06/11/2017 Pt Gbl5130 Mod intensity - 2.0-3.0 06/11/2017 Pt Hrf7109 Hi intensity - 3.0-4.0 06/11/2017 Pt Vgx4867 PT 39.1 seconds 06/07/2017 Pt Mid2853 INR 3.9 06/07/2017 Pt Dzw0959 Low Intensity - 1.5-2.0 06/07/2017 Pt Pwv4523 Mod intensity - 2.0-3.0 06/07/2017 Pt Ipl6832 Hi intensity - 3.0-4.0 06/07/2017 Pt Lom7903 PT 34.2 seconds 05/26/2017 Pt Mve9396 INR 3.3 05/26/2017 Pt Dzc1938 Low Intensity - 1.5-2.0 05/26/2017 Pt Prt0302 Mod intensity - 2.0-3.0 05/26/2017 Pt Iuq4066 Hi intensity - 3.0-4.0 05/26/2017 Comp Metabolic Qkm590 NA 138 mEq/L 04/23/2017 Comp Metabolic Xii628 K 4.2 mEq/L 04/23/2017 Comp Metabolic Dqz714 CL 101 mEq/L 04/23/2017 Comp Metabolic Ohr359 CO2 28.0 mEq/L 04/23/2017 Comp Metabolic Blv143 AN ION GAP 13 04/23/2017 Comp Metabolic Udu947 GL UCOSE 89 mg/dL 04/23/2017 Comp Metabolic Ftn951 Cr eat 1.1 mg/dL 04/23/2017 Comp Metabolic Qtd578 eG FR 51 ml/min/1.73m2 04/23 Comp Metabolic Xje116 BUN 26 mg/dL 04/23/2017 Comp Metabolic Yin872 B/ C Ratio 23.9 Ratio 04/23/2017 Comp Metabolic Wkl066 CA LCIUM 9.4 mg/dL 04/23/2017 Comp Metabolic Cca113 AL K PHOS 95 U/L 04/23/2017 Comp Metabolic Ibx963 T(SGOT) 18 U/L 04/23/2017 Comp Metabolic Tfk375 AL T(SGPT) 17 U/L 04/23/2017 Comp Metabolic Enc831 BI LI T 0.7 mg/dL 04/23/2017 Comp Metabolic Fwr441 AL BUMIN 3.2 g/dL 04/23/2017 Comp Metabolic Ern386 TP RO 5.6 g/dL 04/23/2017 Comp Metabolic Bsb555 GL OB 2.4 g/dL 04/23/2017 Comp Metabolic Yoi269 A/ G Ratio 1.3 Ratio 04/23/2017 Comp Metabolic Xcb135 Os mo 280 mOsmo 04/23/2017 Pt Znq7481 PT 28.6 seconds 04/23/2017 Pt Pgk0002 INR 2.7 04/23/2017 Pt Ozh2369 Low Intensity - 1.5-2.0 04/23/2017 Pt Agd9593 Mod intensity - 2.0-3.0 04/23/2017 Pt Dei4374 Hi intensity - 3.0-4.0 04/23/2017 Pt Iyr7993 PT 24.4 seconds 03/16/2017 Pt Yze8118 INR 2.2 03/16/2017 Pt Rbg9230 Low Intensity - 1.5-2.0 03/16/2017 Pt Mwf1255 Mod intensity - 2.0-3.0 03/16/2017 Pt Wku3843 Hi intensity - 3.0-4.0 03/16/2017 Pt Vkx9608 PT 28.2 seconds 02/24/2017 Pt Xwr0040 INR 2.6 02/24/2017 Pt Qwa2040 Low Intensity - 1.5-2.0 02/24/2017 Pt Bug8424 Mod intensity - 2.0-3.0 02/24/2017 Pt Hpm4786 Hi intensity - 3.0-4.0 02/24/2017 Pt Jvn1853 PT 26.8 seconds 02/08/2017 Pt Yiv4157 INR 2.5 02/08/2017 Pt Syl3681 Low Intensity - 1.5-2.0 02/08/2017 Pt Vdg2409 Mod intensity - 2.0-3.0 02/08/2017 Pt Ybl4121 Hi intensity - 3.0-4.0 02/08/2017 Lipid Ord30 CHOL 150 mg/dL 01/25/2017 Lipid Ord30 HDL 55.0 mg/dl 01/25/2017 Lipid Ord30 TRIG 66 mg/dL 01/25/2017 Lipid Ord30 LDL 82 mg/dL 01/25/2017 Lipid Ord30 C/HDL 2.7 Ratio 01/25/2017 Pt Iav2721 PT 29.9 seconds 01/25/2017 Pt Sxp4148 INR 2.8 01/25/2017 Pt Srp4570 Low Intensity - 1.5-2.0 01/25/2017 Pt Oel2734 Mod intensity - 2.0-3.0 01/25/2017 Pt Nhi8503 Hi intensity - 3.0-4.0 01/25/2017 Comp Metabolic Cog270 NA 143 mEq/L 01/25/2017 Comp Metabolic Oux700 K 3.9 mEq/L 01/25/2017 Comp Metabolic Bto482 CL 108 mEq/L 01/25/2017 Comp Metabolic Urd452 CO2 23.0 mEq/L 01/25/2017 Comp Metabolic Bla553 AN ION GAP 16 01/25/2017 Comp Metabolic Zyz830 GL UCOSE 80 mg/dL 01/25/2017 Comp Metabolic Jar100 Cr eat 1.0 mg/dL 01/25/2017 Comp Metabolic Alx826 eG FR 57 ml/min/1.73m2 01/25 Comp Metabolic Awy910 BUN 25 mg/dL 01/25/2017 Comp Metabolic Nea049 B/ C Ratio 25.0 Ratio 01/25/2017 Comp Metabolic Nbt806 CA LCIUM 8.5 mg/dL 01/25/2017 Comp Metabolic Ynp677 AL K PHOS 81 U/L 01/25/2017 Comp Metabolic Laq713 T(SGOT) 19 U/L 01/25/2017 Comp Metabolic Oll194 AL T(SGPT) 23 U/L 01/25/2017 Comp Metabolic Usg191 BI LI T 0.5 mg/dL 01/25/2017 Comp Metabolic Hsh137 AL BUMIN 2.9 g/dL 01/25/2017 Comp Metabolic Xxm658 TP RO 5.1 g/dL 01/25/2017 Comp Metabolic Nkg143 GL OB 2.2 g/dL 01/25/2017 Comp Metabolic Yur050 A/ G Ratio 1.3 Ratio 01/25/2017 Comp Metabolic Lem815 Os mo 288 mOsmo 01/25/2017 Cbc With [...] 30.7 pg 01/25/2017 Cbc With Differential Ord2 [place]% 8.2 % 01/25/2017 Cbc With Differential Ord2 [...] 3.10 K/ul 01/25/2017 Cbc With Differential Ord2 [place] ABS# 0.8 K/ul 01/25/2017 Cbc With Differential Ord2 [place] ABS# 0.4 K/ul 01/25/2017 Cbc With Differential Ord2 Baso ABS# 0.1 K/ul 01/25/2017 Free T4 Dhn457 FREE T4 2.09 ng/dL 01/25/2017 Tsh Ord6 hTSH II 0.46 uIU/mL 01/25/2017 Pt Utc1260 PT 26.1 seconds 11/26/2016 Pt Dyp8645 INR 2.6 11/26/2016 Pt Nxc4165 Low Intensity - 1.5-2.0 11/26/2016 Pt Aua7070 Mod intensity - 2.0-3.0 11/26/2016 Pt Ioi7515 Hi intensity - 3.0-4.0 11/26/2016 Pt Iqn3739 PT 26.2 seconds 10/29/2016 Pt Vpm2912 INR 2.6 10/29/2016 Pt Igf6704 Low Intensity - 1.5-2.0 10/29/2016 Pt Wbb0621 Mod intensity - 2.0-3.0 10/29/2016 Pt Swk1707 Hi intensity - 3.0-4.0 10/29/2016 Pt Jqx1997 PT 20.8 seconds 10/13/2016 Pt Jkt1074 INR 1.9 10/13/2016 Pt Tvv4321 Low Intensity - 1.5-2.0 10/13/2016 Pt Jxf2977 Mod intensity - 2.0-3.0 10/13/2016 Pt Cdz9168 Hi intensity - 3.0-4.0 10/13/2016 Pt Eib3701 PT 26.5 seconds 10/01/2016 Pt Nmo9473 INR 2.6 10/01/2016 Pt Mfv6810 Low Intensity - 1.5-2.0 10/01/2016 Pt Nja6958 Mod intensity - 2.0-3.0 10/01/2016 Pt Tyo6220 Hi intensity - 3.0-4.0 10/01/2016 Pt Doj1873 PT 24.6 seconds 09/14/2016 Pt Bhr6346 INR 2.4 09/14/2016 Pt Sfh0897 Low Intensity - 1.5-2.0 09/14/2016 Pt Xcr3627 Mod intensity - 2.0-3.0 09/14/2016 Pt Spy6164 Hi intensity - 3.0-4.0 09/14/2016 Pt Wai4439 PT 18.0 seconds 09/07/2016 Pt Ylx5615 INR 1.6 09/07/2016 Pt Icg3165 Low Intensity - 1.5-2.0 09/07/2016 Pt Iau2490 Mod intensity - 2.0-3.0 09/07/2016 Pt Eoc4190 Hi intensity - 3.0-4.0 09/07/2016 Pt Tsb7033 PT 23.7 seconds 08/12/2016 Pt Xrb3697 INR 2.2 08/12/2016 Pt Gjm4930 Low Intensity - 1.5-2.0 08/12/2016 Pt Vps3177 Mod intensity - 2.0-3.0 08/12/2016 Pt Dkb8969 Hi intensity - 3.0-4.0 08/12/2016 Pt Cdq9802 PT 21.6 seconds 07/27/2016 Pt Qfw4726 INR 2.0 07/27/2016 Pt Ttf9022 Low Intensity - 1.5-2.0 07/27/2016 Pt Yhg9470 Mod intensity - 2.0-3.0 07/27/2016 Pt Lvi9526 Hi intensity - 3.0-4.0 07/27/2016 Pt Wai5879 PT 26.0 seconds 06/15/2016 Pt Oin4558 INR 2.5 06/15/2016 Pt Ayp5358 Low Intensity - 1.5-2.0 06/15/2016 Pt Jnl6281 Mod intensity - 2.0-3.0 06/15/2016 Pt Zub6112 Hi intensity - 3.0-4.0 06/15/2016 Pt Xxa6733 PT 18.8 seconds 06/01/2016 Pt Gkk5992 INR 1.7 06/01/2016 Pt Zxh7467 Low Intensity - 1.5-2.0 06/01/2016 Pt Awt8431 Mod intensity - 2.0-3.0 06/01/2016 Pt Bgn1690 Hi intensity - 3.0-4.0 06/01/2016 Pt Qia3549 PT 20.8 seconds 05/12/2016 Pt Yjv5022 INR 1.9 05/12/2016 Pt Qlu3907 Low Intensity - 1.5-2.0 05/12/2016 Pt Cik1262 Mod intensity - 2.0-3.0 05/12/2016 Pt Ime8764 Hi intensity - 3.0-4.0 05/12/2016 Pt Opy2033 PT 24.5 seconds 04/10/2016 Pt Rgb0104 INR 2.4 04/10/2016 Pt Sua9653 Low Intensity - 1.5-2.0 04/10/2016 Pt Orx5694 Mod intensity - 2.0-3.0 04/10/2016 Pt Sgb4065 Hi intensity - 3.0-4.0 04/10/2016 Pt Ggm0532 PT 26.4 seconds 03/10/2016 Pt Shu2224 INR 2.6 03/10/2016 Pt Alf0126 Low Intensity - 1.5-2.0 03/10/2016 Pt Imx0257 Mod intensity - 2.0-3.0 03/10/2016 Pt Gbk2948 Hi intensity - 3.0-4.0 03/10/2016 Pt Hml1245 PT 24.9 seconds 03/06/2016 Pt Dud9349 INR 2.4 03/06/2016 Pt Rdv8368 Low Intensity - 1.5-2.0 03/06/2016 Pt Fod5890 Mod intensity - 2.0-3.0 03/06/2016 Pt Qzx7434 Hi intensity - 3.0-4.0 03/06/2016 Pt Pep0870 PT 21.9 seconds 02/25/2016 Pt Qta1923 INR 2.0 02/25/2016 Pt Uxl0650 Low Intensity - 1.5-2.0 02/25/2016 Pt Muv0323 Mod intensity - 2.0-3.0 02/25/2016 Pt Ftt7763 Hi intensity - 3.0-4.0 02/25/2016 Pt Owd9637 PT 21.8 seconds 02/21/2016 Pt Pud4750 INR 2.0 02/21/2016 Pt Wgp2332 Low Intensity - 1.5-2.0 02/21/2016 Pt Doh6682 Mod intensity - 2.0-3.0 02/21/2016 Pt Xmv4010 Hi intensity - 3.0-4.0 02/21/2016 Culture Urine [id number] URI NE CULTURE SEE NOTES 02/20/2016 Culture Urine [id number] Con tinued Results 02/20/2016 Urine Culture Ucult [...] 91.8 fl 02/14/2016 Cbc With Differential Ord2 [place]% 9.3 % 02/14/2016 Cbc With Differential Ord2 [...] 2.55 K/ul 02/14/2016 Cbc With Differential Ord2 [place] ABS# 0.8 K/ul 02/14/2016 Cbc With Differential Ord2 [place] ABS# 0.4 K/ul 02/14/2016 Cbc With Differential Ord2 Baso ABS# 0.1 K/ul 02/14/2016 Tsh Ord6 hTSH II 0.80 uIU/mL 02/14/2016 Pt Nck9865 PT 27.1 seconds 02/14/2016 Pt Kvy1885 INR 2.7 02/14/2016 Pt Roo3127 Low Intensity - 1.5-2.0 02/14/2016 Pt Msm7086 Mod intensity - 2.0-3.0 02/14/2016 Pt Nbh5113 Hi intensity - 3.0-4.0 02/14/2016 Free T4 Olw589 FREE T4 1.87 ng/dL 02/14/2016 Comp Metabolic Fey078 NA 139 mEq/L 02/14/2016 Comp Metabolic Snu931 K 3.8 mEq/L 02/14/2016 Comp Metabolic Prk715 CL 103 mEq/L 02/14/2016 Comp Metabolic Rsx422 CO2 27.0 mEq/L 02/14/2016 Comp Metabolic Qak201 AN ION GAP 13 02/14/2016 Comp Metabolic Qyx289 GL UCOSE 91 mg/dL 02/14/2016 Comp Metabolic Hxi730 Cr eat 1.0 mg/dL 02/14/2016 Comp Metabolic Meq299 eG FR 58 ml/min/1.73m2 02/13 Comp Metabolic Czm910 BUN 16 mg/dL 02/14/2016 Comp Metabolic Kid606 B/ C Ratio 16.2 Ratio 02/14/2016 Comp Metabolic Pog442 CA LCIUM 9.0 mg/dL 02/14/2016 Comp Metabolic Uuc688 AL K PHOS 88 U/L 02/14/2016 Comp Metabolic Ucd211 T(SGOT) 17 U/L 02/14/2016 Comp Metabolic Roy994 AL T(SGPT) 12 U/L 02/14/2016 Comp Metabolic Ilm002 BI LI T 0.6 mg/dL 02/14/2016 Comp Metabolic Uyx342 AL BUMIN 3.2 g/dL 02/14/2016 Comp Metabolic Wqk194 TP RO 5.8 g/dL 02/14/2016 Comp Metabolic Opx664 GL OB 2.6 g/dL 02/14/2016 Comp Metabolic Hlr316 A/ G Ratio 1.3 Ratio 02/14/2016 Comp Metabolic Hru038 Os mo 278 mOsmo 02/14/2016 Pt Jxj2094 PT 34.6 seconds 02/06/2016 Pt Vxd6193 INR 3.7 02/06/2016 Pt Sfm9638 Low Intensity - 1.5-2.0 02/06/2016 Pt Svb5085 Mod intensity - 2.0-3.0 02/06/2016 Pt Gyl8508 Hi intensity - 3.0-4.0 02/06/2016 Pt Web3672 PT 33.3 seconds 01/23/2016 Pt Dcb9802 INR 3.5 01/23/2016 Pt Vdm4742 Low Intensity - 1.5-2.0 01/23/2016 Pt Vud3246 Mod intensity - 2.0-3.0 01/23/2016 Pt Pxy9193 Hi intensity - 3.0-4.0 01/23/2016 Pt Yzf2183 PT 30.5 seconds 12/31/2015 Pt Dlo8694 INR 3.2 12/31/2015 Pt Xdf4411 Low Intensity - 1.5-2.0 12/31/2015 Pt Gnb9421 Mod intensity - 2.0-3.0 12/31/2015 Pt Cqs2752 Hi intensity - 3.0-4.0 12/31/2015 Pt Nkd5230 PT 35.6 seconds 12/25/2015 Pt Ska9295 INR 3.9 12/25/2015 Pt Apz3184 Low Intensity - 1.5-2.0 12/25/2015 Pt Nrx8682 Mod intensity - 2.0-3.0 12/25/2015 Pt Hnp7229 Hi intensity - 3.0-4.0 12/25/2015 Pt Wsd9930 PT 30.8 seconds 11/21/2015 Pt Qea3081 INR 3.2 11/21/2015 Pt Ukk5644 Low Intensity - 1.5-2.0 11/21/2015 Pt Yqg8308 Mod intensity - 2.0-3.0 11/21/2015 Pt Yoh1487 Hi intensity - 3.0-4.0 11/21/2015 Uric Acid [...] 30.0 pg 11/20/2015 Cbc With Differential Ord2 [place]% 8.1 % 11/20/2015 Cbc With Differential Ord2 [...] 2.51 K/ul 11/20/2015 Cbc With Differential Ord2 [place] ABS# 0.9 K/ul 11/20/2015 Cbc With Differential Ord2 [place] ABS# 0.3 K/ul 11/20/2015 Cbc With Differential Ord2 Baso ABS# 0.0 K/ul 11/20/2015 Comp Metabolic Jnx966 NA 137 mEq/L 10/22/2015 Comp Metabolic Dvo626 K 3.9 mEq/L 10/22/2015 Comp Metabolic Dyt917 CL 100 mEq/L 10/22/2015 Comp Metabolic Gdg372 CO2 31.0 mEq/L 10/22/2015 Comp Metabolic Vxf681 AN ION GAP 10 10/22/2015 Comp Metabolic Ljc623 GL UCOSE 94 mg/dL 10/22/2015 Comp Metabolic Jzk668 Cr eat 1.0 mg/dL 10/22/2015 Comp Metabolic Alb418 eG FR 55 ml/min/1.73m2 10/21 Comp Metabolic Fnh208 BUN 19 mg/dL 10/22/2015 Comp Metabolic Ufs750 B/ C Ratio 18.3 Ratio 10/22/2015 Comp Metabolic Vvp191 CA LCIUM 8.8 mg/dL 10/22/2015 Comp Metabolic Msk269 AL K PHOS 83 U/L 10/22/2015 Comp Metabolic Njk034 T(SGOT) 15 U/L 10/22/2015 Comp Metabolic Net834 AL T(SGPT) 13 U/L 10/22/2015 Comp Metabolic Sua842 BI LI T 0.9 mg/dL 10/22/2015 Comp Metabolic Rpm022 AL BUMIN 2.8 g/dL 10/22/2015 Comp Metabolic Fej628 TP RO 5.4 g/dL 10/22/2015 Comp Metabolic Blj077 GL OB 2.6 g/dL 10/22/2015 Comp Metabolic Nee135 A/ G Ratio 1.1 Ratio 10/22/2015 Comp Metabolic Uyr468 Os mo 276 mOsmo 10/22/2015 Bili D Ord93 BILI D 0.1 mg/dL 10/22/2015 Bili D Ord93 BILI I 0.8 mg/dL 10/22/2015 Pt Oio9358 PT 22.8 seconds 10/22/2015 Pt Wqj7798 INR 2.1 10/22/2015 Pt Kwj1232 Low Intensity - 1.5-2.0 10/22/2015 Pt Zhg9496 Mod intensity - 2.0-3.0 10/22/2015 Pt Qbs6081 Hi intensity - 3.0-4.0 10/22/2015 Pt Nqx9573 PT 28.0 seconds 09/16/2015 Pt Gyb5625 INR 2.7 09/16/2015 Pt Fan9805 Low Intensity - 1.5-2.0 09/16/2015 Pt Bzh0159 Mod intensity - 2.0-3.0 09/16/2015 Pt Edn6327 Hi intensity - 3.0-4.0 09/16/2015 Tsh Ord6 hTSH II 1.40 uIU/mL 09/16/2015 Free T4 Log362 FREE T4 1.73 ng/dL 09/16/2015 Lipid Ord30 CHOL 169 mg/dL 09/16/2015 Lipid Ord30 HDL 66.0 mg/dl 09/16/2015 Lipid Ord30 TRIG 78 mg/dL 09/16/2015 Lipid Ord30 LDL 87 mg/dL 09/16/2015 Lipid Ord30 C/HDL 2.6 Ratio 09/16/2015 Pt Cnm8144 PT 26.6 seconds 08/21/2015 Pt Qnz5115 INR 2.6 08/21/2015 Pt Lrs3275 Low Intensity - 1.5-2.0 08/21/2015 Pt Hfw3660 Mod intensity - 2.0-3.0 08/21/2015 Pt Ogz7773 Hi intensity - 3.0-4.0 08/21/2015 Comp Metabolic Lvv289 NA 141 mEq/L 08/08/2015 Comp Metabolic Rrt052 K 3.3 mEq/L 08/08/2015 Comp Metabolic Vkx779 CL 102 mEq/L 08/08/2015 Comp Metabolic Sys294 CO2 31.0 mEq/L 08/08/2015 Comp Metabolic Rtx820 AN ION GAP 11 08/08/2015 Comp Metabolic Rxf532 GL UCOSE 83 mg/dL 08/08/2015 Comp Metabolic Bac506 Cr eat 1.0 mg/dL 08/08/2015 Comp Metabolic Fiq147 eG FR 55 ml/min/1.73m2 08/08 Comp Metabolic Aue192 BUN 19 mg/dL 08/08/2015 Comp Metabolic Ujm349 B/ C Ratio 18.3 Ratio 08/08/2015 Comp Metabolic Dpn729 CA LCIUM 8.9 mg/dL 08/08/2015 Comp Metabolic Gek840 AL K PHOS 84 U/L 08/08/2015 Comp Metabolic Kka837 T(SGOT) 20 U/L 08/08/2015 Comp Metabolic Cmb954 AL T(SGPT) 18 U/L 08/08/2015 Comp Metabolic Nkb573 BI LI T 0.6 mg/dL 08/08/2015 Comp Metabolic Sfz052 AL BUMIN 3.3 g/dL 08/08/2015 Comp Metabolic Tjl093 TP RO 5.9 g/dL 08/08/2015 Comp Metabolic Onw562 GL OB 2.6 g/dL 08/08/2015 Comp Metabolic Fqv288 A/ G Ratio 1.3 Ratio 08/08/2015 Comp Metabolic Qxy268 Os mo 283 mOsmo 08/08/2015 Cbc With [...] 30.0 pg 08/08/2015 Cbc With Differential Ord2 [place]% 8.2 % 08/08/2015 Cbc With Differential Ord2 [...] 2.90 K/ul 08/08/2015 Cbc With Differential Ord2 [place] ABS# 0.9 K/ul 08/08/2015 Cbc With Differential [...] Ord93 BILI I 0.5 mg/dL 08/08/2015 Pt Jym3350 PT 31.8 seconds 08/05/2015 Pt Wqw0675 INR 3.2 08/05/2015 Pt Fcm6739 Low Intensity - 1.5-2.0 08/05/2015 Pt Ced5064 Mod intensity - 2.0-3.0 08/05/2015 Pt Vxb2651 Hi intensity - 3.0-4.0 08/05/2015 Pt Mst5040 PT 27.4 seconds 06/27/2015 Pt Tnv1186 INR 2.6 06/27/2015 Pt Xlc2455 Low Intensity - 1.5-2.0 06/27/2015 Pt Zuw8654 Mod intensity - 2.0-3.0 06/27/2015 Pt Nos2698 Hi intensity - 3.0-4.0 06/27/2015 Tsh Ord6 [...] Ord2 [place] 15.1 % 05/31/2015 Free T4 Shg045 FREE T4 1.89 ng/dL 05/31/2015 Comp Metabolic Jvy198 NA 140 mEq/L 05/31/2015 Comp Metabolic Saj735 K 3.3 mEq/L 05/31/2015 Comp Metabolic Hgx013 CL 99 mEq/L 05/31/2015 Comp Metabolic Xvg002 CO2 30.0 mEq/L 05/31/2015 Comp Metabolic Qey923 AN ION GAP 14 05/31/2015 Comp Metabolic Xgl330 GL UCOSE 70 mg/dL 05/31/2015 Comp Metabolic Vjj114 Cr eat 1.0 mg/dL 05/31/2015 Comp Metabolic Rvl278 eG FR 55 ml/min/1.73m2 05/31 Comp Metabolic Riy145 BUN 23 mg/dL 05/31/2015 Comp Metabolic Pfd317 B/ C Ratio 22.1 Ratio 05/31/2015 Comp Metabolic Qjw265 CA LCIUM 8.9 mg/dL 05/31/2015 Comp Metabolic Uhb195 AL K PHOS 86 U/L 05/31/2015 Comp Metabolic Qhp846 T(SGOT) 28 U/L 05/31/2015 Comp Metabolic Nxy265 AL T(SGPT) 30 U/L 05/31/2015 Comp Metabolic Qha538 BI LI T 0.4 mg/dL 05/31/2015 Comp Metabolic Fbu706 AL BUMIN 3.3 g/dL 05/31/2015 Comp Metabolic Ymy351 TP RO 6.0 g/dL 05/31/2015 Comp Metabolic Zst660 GL OB 2.7 g/dL 05/31/2015 Comp Metabolic Ppk919 A/ G Ratio 1.2 Ratio 05/31/2015 Comp Metabolic Adv474 Os mo 282 mOsmo 05/31/2015 Pt Lzs0135 PT 23.3 seconds 04/15/2015 Pt Vgf8121 INR 2.2 04/15/2015 Pt Cty7183 Low Intensity - 1.5-2.0 04/15/2015 Pt Iti2594 Mod intensity - 2.0-3.0 04/15/2015 Pt Krr2873 Hi intensity - 3.0-4.0 04/15/2015 Pt Msf7071 PT 19.5 seconds 04/04/2015 Pt Lak0412 INR 1.7 04/04/2015 Pt Bgq4762 Low Intensity - 1.5-2.0 04/04/2015 Pt Zql9740 Mod intensity - 2.0-3.0 04/04/2015 Pt Hdo3801 Hi intensity - 3.0-4.0 04/04/2015 Pt Vbf3208 PT 39.8 seconds 04/01/2015 Pt Ppr8950 INR 4.3 04/01/2015 Pt Ykz2065 Low Intensity - 1.5-2.0 04/01/2015 Pt Yek3132 Mod intensity - 2.0-3.0 04/01/2015 Pt Loa7570 Hi intensity - 3.0-4.0 04/01/2015 Metabolic Ord15 [...] Metabolic Ord15 CALCIUM 8.7 mg/dL 02/28/2015 Pt Dxw9259 PT 31.4 seconds 02/28/2015 Pt Xbe5764 INR 3.2 02/28/2015 Pt Atd0828 Low Intensity - 1.5-2.0 02/28/2015 Pt Rup0111 Mod intensity - 2.0-3.0 02/28/2015 Pt Fhg4004 Hi intensity - 3.0-4.0 02/28/2015 Pt Hqk7799 PT 23.2 seconds 01/18/2015 Pt Tmx6583 INR 2.1 01/18/2015 Pt Ksa3063 Low Intensity - 1.5-2.0 01/18/2015 Pt Lzb4859 Mod intensity - 2.0-3.0 01/18/2015 Pt Bfw8424 Hi intensity - 3.0-4.0 01/18/2015 Pt Lkc1596 PT 18.2 seconds 01/10/2015 Pt Eyu9667 INR 1.6 01/10/2015 Pt Kku7187 Low Intensity - 1.5-2.0 01/10/2015 Pt Mft0902 Mod intensity - 2.0-3.0 01/10/2015 Pt Ehf5042 Hi intensity - 3.0-4.0 01/10/2015 Review of [...] 03/24/2018 ADMIN PNEUMOCOCCAL V ACCINE SNOMED CT: 34986441 CPT-4: G0009 03/24/2018 FLU VACC PRSV FREE I NC ANTIG Formatting Model/CDA Sections, Assigned to/Dorothea Tan CPT-4: 22931Niczfhq 03/24/2018 Pneumococcal Polysac charide Vaccine, 23-Valent, Ad CPT-4: 61560 03/24/2018 TRIAMCINOLONE ACET I [place] NOS CPT-4: J3301 06/15/2017 THER/PROPH/DIAG INJ SC/IM CPT-4: 55620 06/15/2017 ADMIN PNEUMOCOCCAL V ACCINE SNOMED CT: 04314870 CPT-4: G0009 03/16/2017 ADMIN INFLUENZA VIRU S VAC CPT-4: G0008 03/16/2017 FLU VAC NO PRSV 4 VA L 3 YRS+ CPT-4: 80857 03/16/2017 PNEUMOCOCCAL VACC [address]: 90668619 CPT-4: 89674 03/16/2017 URINALYSIS NONAUTO W /O SCOPE CPT-4: 27212 08/26/2016 THER/PROPH/DIAG INJ SC/IM CPT-4: 51199 07/22/2016 TRIAMCINOLONE ACET I [place] NOS CPT-4: J3301 07/22/2016 ROCEPHIN, PER 250 MG CPT-4: J0696 07/22/2016 TRIAMCINOLONE ACET I [place] NOS CPT-4: J3301 02/05/2015 Vital Signs Date Vital 07/11/2018 Blood Pressure 1: 102/68 Code: 8480-6 BMI: 34.5 Code: 87165-2 Heart Rate 1: 101 bpm Height: 5'7" SpO2: 98% Weight: 220 lbs 03/24/2018 Blood Pressure 1: 130/72 Code: 8480-6 BMI: 33.4 Code: 94700-5 Heart Rate 1: 82 bpm Height: 5'7" SpO2: 93% Weight: 213 lbs 11/18/2017 Blood Pressure 1: 128/70 Code: 8480-6 BMI: 33.6 Code: 03866-2 Heart Rate 1: 98 bpm Height: 5'7" SpO2: 97% Weight: 214 lbs 8 oz 09/30/2017 Blood Pressure 1: 100/50 Code: 8480-6 BMI: 34.0 Code: 52730-5 Heart Rate 1: 66 bpm Height: 5'7" SpO2: 96% Weight: 217 lbs 08/17/2017 Blood Pressure 1: 104/60 Code: 8480-6 BMI: 33.7 Code: 86725-6 Heart Rate 1: 99 bpm Height: 5'7" SpO2: 97% Weight: 215 lbs 06/15/2017 Blood Pressure 1: 120/64 Code: 8480-6 BMI: 33.5 Code: 89922-4 Heart Rate 1: 91 bpm Height: 5'7" SpO2: 94% Weight: 214 lbs 04/01/2017 Blood Pressure 1: 110/68 Code: 8480-6 BMI: 154.4 Code: 01190-8 Heart Rate 1: 66 bpm Height: 2'7" SpO2: 95% Weight: 211 lbs 03/16/2017 Blood Pressure 1: 130/72 Code: 8480-6 BMI: 33.0 Code: 71068-0 Heart Rate 1: 95 bpm Height: 5'7" SpO2: 97% Weight: 211 lbs 02/09/2017 Blood Pressure 1: 120/70 Code: 8480-6 BMI: 32.9 Code: 77800-0 Heart Rate 1: 78 bpm Height: 5'7" SpO2: 96% Weight: 210 lbs 10/13/2016 Blood Pressure 1: 118/76 Code: 8480-6 BMI: 32.6 Code: 26101-3 Heart Rate 1: 97 bpm Height: 5'7" SpO2: 98% Weight: 208 lbs 07/31/2016 Blood Pressure 1: 110/64 Code: 8480-6 BMI: 32.1 Code: 34845-3 Heart Rate 1: 79 bpm Height: 5'7" SpO2: 94% Weight: 205 lbs 07/22/2016 Blood Pressure 1: 108/74 Code: 8480-6 BMI: 32.1 Code: 18218-6 Heart Rate 1: 71 bpm Height: 5'7" SpO2: 97% Temperature: 36.9 (C ) / 98.4 (F) Weight: 205 lbs 05/01/2016 Blood Pressure 1: 120/72 Code: 8480-6 BMI: 32.7 Code: 06690-9 Heart Rate 1: 75 bpm Height: 5'7" SpO2: 94% Weight: 209 lbs 04/06/2016 Blood Pressure 1: 106/62 Code: 8480-6 BMI: 32.7 Code: 28605-8 Heart Rate 1: 83 bpm Height: 5'7" SpO2: 97% Weight: 209 lbs 03/06/2016 Blood Pressure 1: 11268 Code: 8480-6 BMI: 32.7 Code: 90557-4 Heart Rate 1: 90 bpm Height: 5'7" SpO2: 97% Weight: 209 lbs 03/03/2016 Blood Pressure 1: 120/62 Code: 8480-6 BMI: 32.7 Code: 80320-6 Heart Rate 1: 92 bpm Height: 5'7" SpO2: 98% Weight: 209 lbs 02/07/2016 Blood Pressure 1: 110/64 Code: 8480-6 BMI: 32.7 Code: 43212-9 Heart Rate 1: 87 bpm Height: 5'7" SpO2: 97% Weight: 209 lbs 12/13/2015 Blood Pressure 1: 110/64 Code: 8480-6 BMI: 33.5 Code: 83289-7 Heart Rate 1: 90 bpm Height: 5'7" SpO2: 97% Weight: 214 lbs 12/03/2015 Blood Pressure 1: 132/76 Code: 8480-6 BMI: 33.4 Code: 68251-5 Heart Rate 1: 82 bpm Height: 5'7" SpO2: 99% Weight: 213 lbs 11/20/2015 Blood Pressure 1: 108/68 Code: 8480-6 BMI: 32.4 Code: 68906-7 Heart Rate 1: 77 bpm Height: 5'7" SpO2: 97% Weight: 207 lbs 09/17/2015 Blood Pressure 1: 122/76 Code: 8480-6 BMI: 33.0 Code: 04736-5 Heart Rate 1: 91 bpm Height: 5'7" SpO2: 97% Weight: 211 lbs 05/31/2015 Blood Pressure 1: 128/82 Code: 8480-6 BMI: 33.4 Code: 40838-9 Heart Rate 1: 98 bpm Height: 5'7" SpO2: 99% Weight: 213 lbs 02/05/2015 Blood Pressure 1: 128/80 Code: 8480-6 BMI: 32.6 Code: 41451-0 Heart Rate 1: 86 bpm Height: 5'7" SpO2: 97% Weight: 208 lbs 11/20/2014 Blood Pressure 1: 128/90 Code: 8480-6 BMI: 30.9 Code: 19012-1 Heart Rate 1: 94 bpm Height: 5'7" [...] Findings Denies fever 05/31/2015 None 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 P ATIENT, LEVEL IV Diagnosis: Atrophy of thyroid (acquired)[ICD10: E03.4] Diagnosis: Essential (primary) hypertension[ICD10: I10] Diagnosis: Other fatigue[ICD10: R53.83] Diagnosis: Localized edema[ICD10: R60.0] Valerie Pisano MD, [facility] CPT-4: 64794 07/11/2018 ([id number]) 82833 EST. P ATIENT, LEVEL IV Diagnosis: Essential (primary) hypertension[ICD10: I10] Diagnosis: Atrophy of thyroid (acquired)[ICD10: E03.4] Diagnosis: Chronic atrial fibrillation[ICD10: I48.2] Valerie Pisano MD, [facility] CPT-4: 02237 03/24/2018 ([id number]) 69166 EST. P ATIENT, LEVEL IV Diagnosis: Essential (primary) hypertension[ICD10: I10] Diagnosis: Atrophy of thyroid (acquired)[ICD10: E03.4] Diagnosis: Chronic atrial fibrillation[ICD10: I48.2] Valerie Pisano MD, [facility] CPT-4: 98437 11/18/2017 11530 EST. PATIENT, LEVEL IV Diagnosis: Localized edema[ICD10: R60.0] Roxie Pisano MD, [facility] CPT-4: 79789 09/30/2017 ([id number]) 60220 EST. P ATIENT, LEVEL III Diagnosis: Essential (primary) hypertension[ICD10: I10] Valerie Pisano MD, [facility] CPT-4: 74168 08/17/2017 ([id number]) 26863 EST. P ATIENT, LEVEL IV Diagnosis: Essential (primary) hypertension[ICD10: I10] Diagnosis: Atrophy of thyroid (acquired)[ICD10: E03.4] Diagnosis: Chronic atrial fibrillation[ICD10: I48.2] Diagnosis: Cervicalgia[ICD10: M54.2] Diagnosis: Other muscle spasm[ICD10: M62.838] Valerie Pisano MD, [facility] CPT- 4: 40261 06/15/2017 82733 EST. PATIENT, LEVEL III Diagnosis: Laceration without foreign body of other finger without damage to nail, initial encounter[ICD10: S61.218A] Roxie Pisano MD, [facility] CPT-4: 49268 04/01/2017 ([id number]) 31956 EST. P ATIENT, LEVEL IV Diagnosis: Chronic atrial fibrillation[ICD10: I48.2] Diagnosis: emt intermediate (current) use of anticoagulants[ICD10: Z79.01] Diagnosis: Encounter for immunization[ICD10: Z23] Diagnosis: Atrophy of thyroid (acquired)[ICD10: E03.4] Valerie Pisano MD, [facility] CPT-4: 90117 03/16/2017 ([id number]) 73165 EST. [facility]: Chronic atrial fibrillation[ICD10: I48.2] Diagnosis: Essential (primary) hypertension[ICD10: I10] Diagnosis: Other fatigue[ICD10: R53.83] Diagnosis: emt intermediate (current) use of anticoagulants[ICD10: Z79.01] Diagnosis: Atrophy of thyroid (acquired)[ICD10: E03.4] Valerie Pisano MD, [facility] CPT-4: 18669 02/09/2017 ([id number]) 73709 EST. [facility] Diagnosis: Essential (primary) hypertension[ICD10: I10] Diagnosis: Chronic atrial fibrillation[ICD10: I48.2] Diagnosis: Tinea corporis[ICD10: B35.4] Diagnosis: emt intermediate (current) use of anticoagulants[ICD10: Z79.01] Diagnosis: Other skin changes[ICD10: R23.8] Valerie Pisano MD, [facility] CPT-4: 97802 10/13/2016 74691 EST. PATIENT, LEVEL III Diagnosis: Other acute sinusitis[ICD10: J01.80] Diagnosis: Other allergic rhinitis[ICD10: J30.89] Roxie Pisano MD, [facility] CPT-4: 40780 07/31/2016 ([id number]) 54461 EST. [facility] Diagnosis: Acute recurrent maxillary sinusitis[ICD10: J01.01] Valerie Pisano MD, C CPT-4: 93152 07/22/2016 61903 EST. PATIENT, LEVEL IV Diagnosis: Essential (primary) hypertension[ICD10: I10] Diagnosis: Other allergic rhinitis[ICD10: J30.89] Diagnosis: Localized edema[ICD10: R60.0] Roxie Pisano MD, [facility] CPT-4: 59468 05/01/2016 27145 EST. PATIENT, LEVEL III Diagnosis: Cellulitis of left lower limb[ICD10: L03.116] Diagnosis: Localized edema[ICD10: R60.0] Roxie Pisano MD, [facility] CPT-4: 86028 04/06/2016 ([id number]) Miscellaneou s no charge Diagnosis: Cellulitis of left lower limb[ICD10: L03.116] Diagnosis: Localized edema[ICD10: R60.0] Roxie Pisano MD, [facility] CPT-4: 38150 03/10/2016 ([id number]) Miscellaneou s no charge Diagnosis: Cellulitis of left lower limb[ICD10: L03.116] Roxie Pisano MD, [facility] CPT-4: 33688 03/06/2016 57595 EST. PATIENT, LEVEL IV Diagnosis: Cellulitis of left lower limb[ICD10: L03.116] Diagnosis: Localized edema[ICD10: R60.0] Roxie Pisano MD, [facility] CPT-4: 22389 03/03/2016 ([id number]) 28136 EST. P ATIENT, LEVEL III Diagnosis: Essential (primary) hypertension[ICD10: I10] Diagnosis: [facility] (current) use of anticoagulants[ICD10: Z79.01] Diagnosis: Chronic atrial fibrillation[ICD10: I48.2] Brielle Pisano MD, [facility] CPT-4: 34998 02/07/2016 ([id number]) 82317 EST. P ATIENT, LEVEL III Diagnosis: Iliotibial band syndrome, right leg[ICD10: M76.31] Diagnosis: Localized edema[ICD10: R60.0] Brielle Pisano MD, [facility] CPT- 4: 23463 12/13/2015 ([id number]) 99175 EST. P ATIENT, LEVEL III Diagnosis: Localized edema[ICD10: R60.0] Diagnosis: Essential (primary) hypertension[ICD10: I10] Brielle Pisano MD, [facility] CPT-4: 79307 12/03/2015 ([id number]) 66607 EST. P ATIENT, LEVEL IV Diagnosis: emt intermediate (current) use of anticoagulants[ICD10: Z79.01] Diagnosis: Other skin changes[ICD10: R23.8] Diagnosis: Localized edema[ICD10: R60.0] Diagnosis: Pain in right foot[ICD10: M79.671] Valerie Pisano MD, [facility] CPT- 4: 60344 11/20/2015 03125 EST. PATIENT, LEVEL IV Diagnosis: Essential (primary) hypertension[ICD10: I10] Diagnosis: emt intermediate (current) use of anticoagulants[ICD10: Z79.01] Diagnosis: Muscle spasm of back[ICD10: M62.830] Roxie Pisano MD, [facility] CPT- 4: 81460 09/17/2015 ([id number]) 88512 EST. P ATIENT, LEVEL IV Diagnosis: Localized edema[ICD10: R60.0] Diagnosis: Other specified hypothyroidism[ICD10: E03.8] Diagnosis: Essential (primary) hypertension[ICD10: I10] Brielle Pisano MD, [facility] CPT-4: 23177 05/31/2015 ([id number]) 56929 EST. P ATIENT, LEVEL III Diagnosis: ALLERGIC RHINITIS[ICD9: 477.9] Diagnosis: ESSENTIAL HYPERTENSION[ICD9: 401.9] Brielle Pisano MD, [facility] CPT-4: 86988 02/05/2015 ([id number]) OFFICE [facility] - LEVEL 4 Diagnosis: ESSENTIAL HYPERTENSION[ICD9: 401.9] Diagnosis: HYPOTHYROIDISM[ICD9: 244.9] Diagnosis: ACTINIC KERATOSIS[ICD9: 702.0] Valerie Pisano MD, [facility] CPT-4: 62575 11/20/2014 Plan of Care Planned Activity Notes C odes Status Date Visit Plan: Hypertension - sana ninaed - continue with current medications, continue with [...] back to one pill twice daily. 07/11/2018 Patient Education: Patient Medication Summary Completed [...] given today. 03/24/2018 Appointment: Valerie Pisano WPtel: [address] [place], [place] [phone] (15 min) Moderate 03/24/2018 Patient Education: Patient [...] control. 11/18/2017 Appointment: Valerie Pisano WPtel: [phone] [facility] (15 min) Moderate 11/18/2017 Patient Education: Patient Medication Summary Completed 11/18/2017 Referral: [facility] WPtel: [address] Pt notified at appointment Appointment Confirmed [...] Unna Boots 09/30/2017 Appointment: Roxie Cazares WPtel: [facility] (30 min) Complex 09/30/2017 Patient Education: Patient Medication Summary Completed 09/30/2017 Care Plan: Referral Order SNOMED-CT : [id number] Pending 09/30/2017 Visit Plan: Hypertension - well [...] this time. 08/17/2017 Appointment: Valerie Pisano WPtel: [address] [place] [address] (15 min) Moderate 08/17/2017 Patient Education: Patient [...] muscles. allergies - kenalog 40mg im bristol [employer] squibb - lot # [id number] expires september 2018 06/15/2017 Visit Plan: Hypertension [...] neck muscles. 06/15/2017 Appointment: Valerie Pisano WPtel: [facility] ([facility] min) Moderate 06/15/2017 Patient Education: Patient Medication Summary Completed 06/15/2017 Care Plan: Referral Order SNOMED-CT : [id number] Pending 06/15/2017 Appointment: Nurse Visit 04/05/2017 Appointment: [...] booster. 04/01/2017 App[facility]ment[facility] [facility] ([facility] min) Moderate 04/01/2017 Patient Education: [...] shot today 03/16/2017 Appointment: Valerie Pisano WPtel: [address] [place], [place] [address] (15 min) Moderate 03/16/2017 Patient Education: Patient [...] of control. 1 pill mon/wed/fri, 1/2 pill /th/sat/sun take - This is [...] spray. 02/09/2017 Appointment: Valerie Pisano WPtel: [phone] [facility] (15 min) Moderate 02/09/2017 Patient Education: Patient [...] for nystatin 10/13/2016 Appointment: Valerie Pisano WPtel: [facility]8 [facility] (15 min) Moderate 10/13/2016 Patient Education: Patient Medication Summary Completed 10/13/2016 Patient Education: Obesity Completed 10/13/2016 Patient Education: Hypertension Completed 10/13/2016 Care Plan: Urine Culture Pending 08/31/2016 Appointment: Roxie Cazares WPtel: [facility]4 [facility] Lab Draw 08/27/2016 Appointment: Nurse Visit [...] spray. 07/31/2016 App[facility]ment: [phone] [phone] (30 min) Complex 07/31/2016 Patient Education: Patient Medication Summary Completed 07/31/2016 Patient Education: Obesity Completed 07/31/2016 Visit Plan: Sinusitis - Pt has acut e infection - pain in face, maxillary region, Pt informed to use decongestant, RX given to patient, sinus rinses also recommended. Call if symptoms do not show improvement. 07/22/2016 Appointment: Valerie Pisano WPtel: [facility] (15 min) Moderate [...] peripheral edema. 05/01/2016 Appointment: Brielle Cavazos WPtel[id number] ([facility] min) Complex 05/01/2016 Patient Education: [...] peripheral edema. 04/06/2016 Appointment: Roxie Cazares WPtel[facility] ([facility]) Complex 04/06/2016 Patient Education: Patient Medication Summary Completed 04/06/2016 Patient Education: Obesity Completed 04/06/2016 Visit Plan: left foot - improved - pt finished with antibiotics - continue to monitor - notify clinic with any concerns. Repeat INR today. 03/10/2016 Appointment: Brielle Cavazos [facility] [facility] [phone] (30 min) Complex 03/10/2016 Patient Education: Patient Medication Summary Completed 03/10/2016 Visit Plan: Cellulitis - continue w ith oral antibiotics as previously directed, return to clinic as previously directed, call for acute change in symptoms, worsening redness, warmth, discharge. 03/06/2016 Appointment: Brielle Cavazos WPtel: [facility] [phone] (15 min) Moderate 03/06/2016 Patient Education: Patient Medication Summary Completed 03/06/2016 Patient Education: Obesity Completed 03/06/2016 Visit Plan: Cellulitis - continue w ith oral antibiotics as previously directed, return to clinic as previously directed, call for acute change in symptoms, worsening redness, warmth, discharge. 03/03/2016 Appointment: Brielle Cavazos WPtel: [facility] [phone] [place] (15 min) Moderate 03/03/2016 Patient Education: Patient Medication Summary Completed 03/03/2016 Patient Education: Obesity Completed 03/03/2016 Patient Education: Patient Medication Summary Completed 02/14/2016 Patient Education: Patient Medication Summary Completed 02/12/2016 Visit Plan: Hypertension - well con trofedeed [...] and 3.5. 02/07/2016 Appointment: Brielle Cavazos WPtel: [address] [place] [address] (30 min) Complex 02/07/2016 Patient Education: Patient Medication Summary Completed 02/07/2016 Patient Education: Obesity Completed 02/07/2016 Patient Education: Hypertension Completed 02/07/2016 Appointment: Brielle Cavazos WPtel: [address] [place] [address] (30 min) Complex 02/04/2016 Visit Plan: Iliotibial [...] peripheral edema. 12/13/2015 Appointment: Brielle Cavazos WPtel: [address] [place], [place] [phone] (15 min) Moderate 12/13/2015 Patient Education: Patient [...] at home. 12/03/2015 Appointment: Bri[facility]el[facility] [phone] [phone] (30 min) [facility] 12/03/2015 Patient Education: Patient Medication Summary Completed [...] Hypertension Completed 02/05/2015 Appointment: Valerie Pisano WPtel: [facility] [place] (15 min) Moderate 01/29/2015 Visit Plan: Hypertension [...] of control. 11/20/2014 Appointment: Valerie Pisano WPtel: [address] [place], [place] [phone] [place] ([place]) New Patient 11/20/2014 Patient Education: Patient Medication Summary Completed 11/20/2014 Patient Education: Hypertension Completed 11/20/2014 Patient Education: Patient Medication Summary Completed 10/19/2014 Referral: [facility] WPtel: Referral Appointment Requested Referral: [facility] WPtel: [facility] Referral Appointment Confirmed Instructions Comment . Hypertension [...] therapy - will refer to [facility] therapy. RX for voltaren to neck muscles. allergies - kenalog 40mg im bristol myeres squibb - lot # [id number] expires september 2018 . Edema - pt [...] further attempt to reduce peripheral edema. . Atrial Fibrillatio n - pt on [...] of control. get blood work one w [facility] before next appt - fasting labs Decrease [...] Tinea of leg - rx for nystatin CHECK LABS TODAY-WE WILL CALL YOU AFTER [...] for INR is between 2.0 and 3.5. check coumadin level on wednesday Nasal spray- [...] change in blood pressure readings at home. Monitor your blood p ressure at home [...] therapy - will refer to [facility] physical therapy. RX for voltaren to neck muscles. . left foot - improv ed - pt finished with antibiotics - continue to monitor - notify clinic with any concerns. Repeat INR today.
--- OUTSIDE RECORDS SUMMARY | 2019-09-12 11:59 | XMS REPORT | CCD ---
Author Author Clara Pisano Organization [facility] Address [address] [place] [address] Phone Care Team Providers Care Parts Counter Specialist Name Role Phone PP Unavailable CCM Unavailable Summary Purpose Interface Exchange Insurance Providers Payer name Policy type / Coverage type Covered democrat ID Effective Begin Date Effective End Date WPS Medicare Part B Medicare Part B [id number] Unknown [employer] Medicare Part B [id number] Unknown Family history Sister Diagnosis Age At Onset defect Unknown Breast cancer Unknown Daughter Diagnosis Age At Onset Breast cancer Unknown Mother Diagnosis Age At Onset No Family Disease Entered N/A Social History Social History Element Codes Description Effective Dates Marital status Unknown M arried Lane 11/20/2014 Number of children Unknown 6 11/20/2014 Employment Unknown Retir ed 11/20/[address]: 4581227 Quit over 10 years ago 1963 11/20/2014 [...] ICD-9: 244.9 ICD-10: E03.9 Active 02/11/2016 Unknown Abnormal results of kidney function studies ICD-9: 794.4 ICD-10: R94.4 Active 06/30/2018 Unknown Atrophy of thyroid ( acquired) ICD-9: 244.8 ICD-10: E03.4 Active 02/09/2017 Unknown Encounter for immuni zation ICD-9: V03.9 ICD-10: Z23 Active 03/16/2017 Unknown Localized edema ICD-9: 782.3 ICD-10: R60.0 Active 04/30/2016 Unknown Cervicalgia ICD-9: 723.1 ICD-10: M54.2 Active 06/15/2017 Unknown Other muscle spasm ICD- 9: 728.85 ICD-10: M62.838 Active 06/15/2017 Unknown Laceration without f oreign body of other finger without damage to nail, initial encounter ICD-9: 883.0 ICD-10: S61.218A Active 04/01/2017 Unknown 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 ICD-9: V58.61 ICD-10: Z79.01 Active 02/06/2016 Unknown Other fatigue ICD-9: 780.79 ICD-10: R53.83 Active 02/11/2016 Unknown Other specified hypo thyroidism ICD-9: 244.8 [...] ecified ICD-9: 244.9 ICD-10: E03.9 02/11/2016 Active Abnormal results of kidney function studies ICD-9: 794.4 ICD-10: R94.4 06/30/2018 Active Atrophy of thyroid ( acquired) ICD-9: 244.8 ICD-10: E03.4 02/09/2017 Active Encounter for immuni zation ICD-9: V03.9 ICD-10: Z23 03/16/2017 Active Localized edema ICD-9: 782.3 ICD-10: R60.0 04/30/2016 Active Cervicalgia ICD-9: 723.1 ICD-10: M54.2 06/15/2017 Active Other muscle spasm ICD- 9: 728.85 ICD-10: M62.838 06/15/2017 Active Laceration without f oreign body of other finger without damage to nail, initial encounter ICD-9: 883.0 ICD-10: S61.218A 04/01/2017 Active assisted (current) use of anticoagulants ICD-9: V58.61 ICD-10: Z79.01 02/06/2016 Active Other fatigue ICD-9: 780.79 ICD-10: R53.83 02/11/2016 Active Other specified hypo thyroidism ICD-9: 244.8 [...] 11/19/2014 Active HYPOTHYROIDISM ICD-9: 244.9 11/19/2014 Active 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 TAKE ON AN EMPTY STOMACH 02/02/2018 07/31/2018 Active Coumadin 4 mg tablet RxNorm: 081386 TAKE ONE TABLET BY MOUTH DAILY ON AND Wednesday10/14/2017 09/14/2018 Active nystatin 100,000 uni t/gram topical cream RxNorm: 907502 1 Application TOP TID 08/17/2017 No Stop Date Active triamcinolone aceton sreekanth 0.025 % topical cream RxNorm: 5693829 1 Application TOP BI D 08/17/2017 No Stop Date Active Voltaren 1 % topical gel RxNorm: 947896 2 Gram(s) TOP TID luiz ly to shoulder and neck 08/17/2017 No Stop Date Active levothyroxine 125 mc g tablet RxNorm: 080228 1 Tablet(s) UD 1 pill wed/wed/wed, 1/2 pill //wed/wed take ON AN EMPTY STOMACH 08/05/2017 02/01/2018 Inactive Coumadin 4 mg tablet RxNorm: 159508 1 Tablet(s) PO Wed/07/29/2017 10/13/2017 Inactive warfarin 5 mg tablet RxNorm: 313698 TAKE 1 AND 1/2 TABLETS BY MOUTH ON AND WEDNESDAY. TAKE ONLY 1 TABLET BY MOUTH ALL OTHER DAYS OF THE WEEK 07/12/2017 04/05/2018 In active furosemide 40 mg tablet RxNorm: 260915 Tablet(s) BID TAKE ONE TABLET BY MOUTH D AILY 06/15/2017 No Stop Date Active Voltaren 1 % topical gel RxNorm: 292880 2 Gram(s) TOP TID luiz ly to shoulder and neck 06/15/2017 08/16/2017 Inactive Keflex 500 mg capsule RxNorm: 838976 1 Capsule(s) PO TID 04/01/2017 04/07/2017 Inactive furosemide 40 mg tablet RxNorm: 083970 TAKE ONE TABLET BY MOUTH DAILY 03/18/2017 06/14/2017 In active Claritin-D 12 Hour 5 mg-120 mg tablet,extended release RxNorm: 7813912 1 Tablet(s) PO BID 03/16/2017 05/14/2017 Inactive Lipitor 20 mg tablet RxNorm: 728757 1 Tablet(s) PO daily 02/09/2017 03/10/2017 Inactive lisinopril 2.5 mg ta blet RxNorm: 999591 1 Tablet(s) PO daily 02/09/2017 03/10/2017 Inactive Nasonex 50 mcg/actua tion [place] RxNorm: 2376605 1 [place] NASAL BID 02/09/2017 09/06/2017 Inactive levothyroxine 125 mc g tablet RxNorm: 365161 1 Tablet(s) UD 1 pill wed/wed/wed, 1/2 pill //wed/sun take ON AN EMPTY STOMACH 02/09/2017 08/04/2017 Inactive fluorouracil 5 % top ical cream RxNorm: 143947 1 Application TOP BID 02/09/2017 02/18/2017 Inactive potassium chloride E R 20 mEq tablet,extended release RxNorm: 437576 Tablet(s) TAKE ONE TABLET BY MOUTH DAILY 02/08/2017 02/02/2018 Inactive warfarin 5 mg tablet RxNorm: 245442 TAKE 1 AND 1/2 TABLETS BY MOUTH ON AND WEDNESDAY. TAKE ONLY 1 TABLET BY MOUTH ALL OTHER DAYS OF THE WEEK 12/14/2016 05/30/2017 In active potassium chloride E R 20 mEq tablet,extended release RxNorm: 944923 TAKE ONE TABLET BY MOUTH DAILY 10/29/2016 01/26/2017 Inactive warfarin 5 mg tablet RxNorm: 408572 TAKE 1 AND 1/2 TABLETS BY MOUTH ON AND WEDNESDAY. TAKE ONLY 1 TABLET BY MOUTH ALL OTHER DAYS OF THE WEEK 10/27/2016 12/13/2016 In active nystatin 100,000 uni t/gram topical cream RxNorm: 004637 1 Application TOP TID 10/13/2016 08/16/2017 In active nitrofurantoin 50 mg capsule RxNorm: 530719 1 Capsule(s) PO BID 09/04/2016 09/03/2016 Inactive nitrofurantoin macro crystal 50 mg capsule RxNorm: 113732 1 Capsule(s) PO BID 09/04/2016 09/10/2016 In active Cipro 500 mg tablet RxNorm: 904175 1 Tablet(s) PO BID 08/26/2016 10/12/2016 Inactive Zyrtec 10 mg tablet RxNorm: 6244051 1 Tablet(s) PO daily 07/31/2016 08/29/2016 Inactive prednisone 20 mg tablet RxNorm: 320140 2 Tablet(s) PO daily 07/31/2016 08/02/2016 Inactive Kenalog 40 mg/mL zohra pension for injection RxNorm: 4277730 Milliliter(s) Inj 07/22/2016 07/22/2016 In active ceftriaxone 500 mg s olution for injection RxNorm: 2930875 Inj 07/22/2016 07/22/2016 Inactive Flonase Allergy Reli ef 50 mcg/actuation nasal spray,suspension RxNorm: 5738863 1 [place] NASAL BID 07/22/2016 08/20/2016 Inactive azithromycin 250 mg tablet RxNorm: 178652 2 Tablet(s) PO on day #1, then 1 pill daily x 4 days 07/22/2016 10/12/2016 Inactive warfarin 5 mg tablet RxNorm: 752810 TAKE 1 AND 1/2 TABLETS BY MOUTH ON AND WEDNESDAY. TAKE ONLY 1 TABLET BY MOUTH ALL OTHER DAYS OF THE WEEK 07/09/2016 09/30/2016 In active levothyroxine 125 mc g tablet RxNorm: 134655 Tablet(s) TAKE ONE TA BLET BY MOUTH DAILY ON AN EMPTY STOMACH 06/23/2016 02/08/2017 Inactive levothyroxine 125 mc g tablet RxNorm: 833729 TAKE ONE TABLET BY MO UTH DAILY ON AN EMPTY STOMACH 06/23/2016 06/22/2016 Inactive levothyroxine 125 mc g tablet RxNorm: 699605 TAKE ONE TABLET BY MO UTH DAILY ON AN EMPTY STOMACH 06/23/2016 08/04/2017 Inactive cetirizine 10 mg tablet RxNorm: 7753205 TAKE ONE TABLET BY MOUTH DAILY 06/16/2016 10/13/2016 In active furosemide 40 mg tablet RxNorm: 618257 Tablet(s) TAKE ONE TABLET BY MOUTH DAILY 06/05/2016 12/01/2016 In active cetirizine 10 mg tablet RxNorm: 4958513 1 Tablet(s) PO daily 05/01/2016 05/30/2016 Inactive Levaquin 250 mg tablet RxNorm: 007265 Tablet(s) PO 2 pills day one and 1 pill day 2-7 04/06/2016 07/21/2016 Inactive warfarin 5 mg tablet RxNorm: 522910 Tablet(s) 1/2 TABLETS BY MOUTH ON AND WEDNESDAY. TAKE ONLY 1 TABLET BY MOUTH ALL OTHER DAYS OF THE WEEK 03/18/2016 07/07/2016 In active triamcinolone aceton sreekanth 0.025 % topical cream RxNorm: 6983976 1 Application TOP BI D 03/10/2016 08/16/2017 In active potassium chloride E R 20 mEq tablet,extended release RxNorm: 960323 1 Tablet(s) PO daily 03/04/2016 06/01/2016 Inactive Levaquin 250 mg tablet RxNorm: 521324 Tablet(s) PO 2 pills day one and 1 pill day 2-7 03/04/2016 04/05/2016 Inactive Levaquin 250 mg tablet RxNorm: 852131 Tablet(s) PO 2 pills day one and 1 pill day 2-7 03/03/2016 03/03/2016 Inactive potassium chloride E R 20 mEq tablet,extended release RxNorm: 909648 1 Tablet(s) PO daily 03/03/2016 03/03/2016 Inactive Cipro 500 mg tablet RxNorm: 742365 1 Tablet(s) PO BID 02/20/2016 07/21/2016 Inactive Cipro 500 mg tablet RxNorm: 556637 1 Tablet(s) PO BID 02/20/2016 02/19/2016 Inactive furosemide 40 mg tablet RxNorm: 310934 TAKE ONE TABLET BY MOUTH DAILY 01/27/2016 01/26/2016 In active warfarin 5 mg tablet RxNorm: 236780 TAKE 1 AND 1/2 TABLETS BY MOUTH ON AND WEDNESDAY. TAKE ONLY 1 TABLET BY MOUTH ALL OTHER DAYS OF THE WEEK 01/27/2016 01/26/2016 In active furosemide 40 mg tablet RxNorm: 468536 TAKE ONE TABLET BY MOUTH DAILY 01/27/2016 06/04/2016 In active warfarin 5 mg tablet RxNorm: 063679 TAKE 1 AND 1/2 TABLETS BY MOUTH ON AND WEDNESDAY. TAKE ONLY 1 TABLET BY MOUTH ALL OTHER DAYS OF THE WEEK 01/27/2016 03/17/2016 In active potassium chloride E R 20 mEq tablet,extended release RxNorm: 806576 1 Tablet(s) PO daily 11/20/2015 03/02/2016 Inactive furosemide 40 mg tablet RxNorm: 683250 TAKE ONE TABLET BY MOUTH DAILY 11/12/2015 01/26/2016 In active Zovirax 5 % topical cream RxNorm: 704418 TOP QID 0 09/24/2015 09/23/2015 Inactive Zovirax 5 % topical cream RxNorm: 556919 TOP QID 0 09/24/2015 11/19/2015 Inactive nystatin 100,000 uni t/gram topical cream RxNorm: 733058 1 Application TOP TID 09/17/2015 10/12/2016 In active warfarin 5 mg tablet RxNorm: 287479 TAKE 1 AND 1/2 TABLETS BY MOUTH ON AND WEDNESDAY. TAKE ONLY 1 TABLET BY MOUTH ALL OTHER DAYS OF THE WEEK 08/19/2015 01/05/2016 In active loratadine 10 mg tablet RxNorm: 677948 1 Tablet(s) PO daily 07/30/2015 07/23/2016 Inactive loratadine 10 mg tablet RxNorm: 283061 1 Tablet(s) PO daily 07/30/2015 07/29/2015 Inactive furosemide 40 mg tablet RxNorm: 091682 TAKE ONE TABLET BY MOUTH DAILY 06/24/2015 11/11/2015 In active levothyroxine 125 mc g tablet RxNorm: 537026 1 Tablet(s) PO daily 05/31/2015 05/24/2016 Inactive furosemide 40 mg tablet RxNorm: 653817 1 Tablet(s) PO daily 04/05/2015 06/23/2015 Inactive warfarin 5 mg tablet RxNorm: 172271 TAKE 1 AND 1/2 TABLETS BY MOUTH ON AND WEDNESDAY. TAKE ONLY 1 TABLET BY MOUTH ALL OTHER DAYS OF THE WEEK 02/12/2015 07/29/2015 In active Flonase Allergy Reli ef 50 mcg/actuation nasal spray,suspension RxNorm: 2 [place] NASAL daily 02/05/2015 03/06/2015 Inactive Kenalog 40 mg/mL zohra pension for injection RxNorm: 0620934 Milliliter(s) Inj 02/05/2015 02/05/2015 In active warfarin 5 mg tablet RxNorm: 126075 Take 7.5mg (1 1/2 tablets) Wednesday and and 1 Tablet(s) PO (5mg) all other days 01/11/2015 02/09/2015 Inactive levothyroxine 125 mc g tablet RxNorm: 858537 1 Tablet(s) PO every other day 01/01/2015 05/30/2015 In active alternate with 150 levothyroxine 150 mc g tablet RxNorm: 713611 1 Tablet(s) PO every other day 01/01/2015 05/30/2015 In active alternate with 125 loratadine 10 mg tablet RxNorm: 439727 Tablet(s) PO as needed No Start Date Active Fish Oil 1,000 mg ca psule RxNorm: 1 Capsule(s) PO TID No Start Date Active magnesium 250 mg tablet RxNorm: 1 Tablet(s) PO daily No Start Date Active Vitamin D3 2,000 uni t tablet RxNorm: 542712 2 Tablet(s) PO daily No Start Date Active Fosamax 35 mg tablet RxNorm: 098751 1 Tablet(s) PO QW No Start Date Active levothyroxine 125 mc g tablet RxNorm: 243154 1 Tablet(s) PO daily No Start Date 12/31/2014 Inactive levothyroxine 150 mc g tablet RxNorm: 137051 1 Tablet(s) PO daily No Start Date 12/31/2014 Inactive diltiazem 60 mg tablet RxNorm: 982483 1 Tablet(s) PO QID No Start Date 03/23/2018 Inactive furosemide 40 mg tablet RxNorm: 792206 1 Tablet(s) PO daily No Start Date 04/04/2015 Inactive potassium chloride RxNorm: miscellaneous No Start Date 11/19/2015 Inactive Vitamin D2 oral RxNorm: 4018 oral No Start Date 05/31/2015 Inactive warfarin 5 mg tablet RxNorm: 117189 1 Tablet(s) PO daily No Start Date 01/10/2015 Inactive Coumadin 4 mg tablet RxNorm: 001239 1 Tablet(s) PO Wed/ No Start Date 07/28/2017 Inactive Medication Administered Medication Codes Instruc tions Start Date Status Kenalog 40 mg/mL suspension for injection RxNorm: 6548726 Milliliter 07/22/2016 No longer Active ceftriaxone 500 mg solution for injection RxNorm: 7973988 07/22/2016 No longer A ctive Kenalog 40 mg/mL suspension for injection RxNorm: 5382388 Milliliter 02/05/2015 No longer Active Immunizations Vaccine Codes Date Status Influenza CVX: 141 03/24 completed Pneumococcal (Adult) CVX: 33 03/24/2018 completed Influenza CVX: 141 03/16 completed Pneumococcal (Adult) CVX: 133 03/16/2017 completed Influenza CVX: 141 05/06 completed Influenza CVX: 141 04/28 completed Pneumococcal CVX: 33 06/1999 completed Assessments Condition Codes Effectiv e Dates Chronic atrial fibrillation ICD-10: I48.2 ICD-9: 427.31 07/11/2018 Essential (primary) hypertension ICD -10: I10 ICD-9: 401.9 07/11/2018 Hypothyroidism, unspecified ICD-10: E03.9 ICD-9: 244.9 07/11/2018 Abnormal results of kidney function studies ICD-10: R94.4 ICD-9: 794.4 06/30/2018 Atrophy of thyroid (acquired) ICD-10 : E03.4 ICD-9: 244.8 03/24/2018 Encounter for immunization ICD-10: Z 23 ICD-9: V03.9 03/24/2018 Localized edema ICD-10: R60.0 ICD-9: 782.3 09/30/2017 Cervicalgia ICD-10: M54.2 ICD-9: 723.1 06/15/2017 Other muscle spasm ICD-10: M62.838 ICD-9: 728.85 06/15/2017 Laceration without foreign body of other finger without damage to nail, initial encounter ICD-10: S61.218A ICD-9: 883.0 04/01/2017 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 ICD-10: Z79.01 ICD-9: V58.61 03/16/2017 Other fatigue ICD-10: R53.83 ICD-9: 780.79 02/09/2017 Tinea corporis ICD-10: B35.4 ICD-9: 110.5 10/13/2016 [...] 244.9 11/20/2014 ACTINIC KERATOSIS ICD-9: 702.0 11/20/2014 assisted current use of anticoagulant therapy ICD-9: V58.61 10/19/2014 Reason For Visit Reason For Visit Effective Dates Notes hypertension 03/24/2018 hypertension 11/18/2017 edema 09/30/2017 sinus [...] Code Item Item Code Result Date Pt Tll9003 PT 18.5 seconds 07/08/2018 Pt Kxy6959 INR 1.6 07/08/2018 Pt Qil0494 Low Intensity - 1.5-2.0 07/08/2018 Pt Tfr1360 Mod intensity - 2.0-3.0 07/08/2018 Pt Vvt2211 Hi intensity - 3.0-4.0 07/08/2018 Pt Iim2177 PT 27.3 seconds 06/29/2018 Pt Wwh3927 INR 2.6 06/29/2018 Pt Cap2134 Low Intensity - 1.5-2.0 06/29/2018 Pt Mny1157 Mod intensity - 2.0-3.0 06/29/2018 Pt Oul4032 Hi intensity - 3.0-4.0 06/29/2018 Pt Ned7094 PT 24.0 seconds 05/26/2018 Pt Tpr9659 INR 2.2 05/26/2018 Pt Qjd9527 Low Intensity - 1.5-2.0 05/26/2018 Pt Fcx7585 Mod intensity - 2.0-3.0 05/26/2018 Pt Hip1455 Hi intensity - 3.0-4.0 05/26/2018 Tsh Ord6 [...] 29.6 pg 03/25/2018 Cbc With Differential Ord2 Bibb% 9.5 % 03/25/2018 Cbc With Differential Ord2 [...] 2.19 K/ul 03/25/2018 Cbc With Differential Ord2 Bibb ABS# 0.8 K/ul 03/25/2018 Cbc With Differential Ord2 Eos ABS# 0.3 K/ul 03/25/2018 Cbc With Differential Ord2 Baso ABS# 0.0 K/ul 03/25/2018 Lipid Ord30 CHOL 156 mg/dL 03/25/2018 Lipid Ord30 HDL 52.0 mg/dl 03/25/2018 Lipid Ord30 TRIG 98 mg/dL 03/25/2018 Lipid Ord30 LDL 84 mg/dL 03/25/2018 Lipid Ord30 C/HDL 3.0 Ratio 03/25/2018 Free T4 Pvs095 FREE T4 1.73 ng/dL 03/25/2018 Comp Metabolic Dvu509 NA 143 mEq/L 03/25/2018 Comp Metabolic Wiw234 K 4.6 mEq/L 03/25/2018 Comp Metabolic Jtn176 CL 108 mEq/L 03/25/2018 Comp Metabolic Wpb514 CO2 26.0 mEq/L 03/25/2018 Comp Metabolic Bvj602 AN ION GAP 14 03/25/2018 Comp Metabolic Hvj572 GL UCOSE 87 mg/dL 03/25/2018 Comp Metabolic Lsp882 Cr eat 1.2 mg/dL 03/25/2018 Comp Metabolic Hlb278 eG FR 48 ml/min/1.73m2 03/25 Comp Metabolic Kcg496 BUN 18 mg/dL 03/25/2018 Comp Metabolic Rqh137 B/ C Ratio 15.5 Ratio 03/25/2018 Comp Metabolic Faf360 CA LCIUM 9.1 mg/dL 03/25/2018 Comp Metabolic Hio925 AL K PHOS 58 U/L 03/25/2018 Comp Metabolic Fdd155 T(SGOT) 21 U/L 03/25/2018 Comp Metabolic Jkc203 AL T(SGPT) 13 U/L 03/25/2018 Comp Metabolic Etp292 BI LI T 0.7 mg/dL 03/25/2018 Comp Metabolic Ovk808 AL BUMIN 3.2 g/dL 03/25/2018 Comp Metabolic Lfx921 TP RO 5.5 g/dL 03/25/2018 Comp Metabolic Suc346 GL OB 2.3 g/dL 03/25/2018 Comp Metabolic Ccn986 A/ G Ratio 1.4 Ratio 03/25/2018 Comp Metabolic Tdm677 Os mo 286 mOsmo 03/25/2018 Pt Zyi0093 PT 29.0 seconds 03/22/2018 Pt Pue6082 INR 2.7 03/22/2018 Pt Jtg0858 Low Intensity - 1.5-2.0 03/22/2018 Pt Ngz3554 Mod intensity - 2.0-3.0 03/22/2018 Pt Ldf9667 Hi intensity - 3.0-4.0 03/22/2018 Pt Ees6382 PT 27.1 seconds 02/25/2018 Pt Zzb8920 INR 2.5 02/25/2018 Pt Wpi5727 Low Intensity - 1.5-2.0 02/25/2018 Pt Qid0207 Mod intensity - 2.0-3.0 02/25/2018 Pt Rsc4621 Hi intensity - 3.0-4.0 02/25/2018 Pt Rfj9629 PT 26.1 seconds 01/26/2018 Pt Oui4961 INR 2.4 01/26/2018 Pt Ejq0284 Low Intensity - 1.5-2.0 01/26/2018 Pt Zit8418 Mod intensity - 2.0-3.0 01/26/2018 Pt Wxm5117 Hi intensity - 3.0-4.0 01/26/2018 Pt Ole6443 PT 22.8 seconds 12/24/2017 Pt Jzm0349 INR 2.0 12/24/2017 Pt Zyi7350 Low Intensity - 1.5-2.0 12/24/2017 Pt Gxu5952 Mod intensity - 2.0-3.0 12/24/2017 Pt Ncy5611 Hi intensity - 3.0-4.0 12/24/2017 Pt Uda7623 PT 29.4 seconds 11/18/2017 Pt Uhz4347 INR 2.8 11/18/2017 Pt Aso2174 Low Intensity - 1.5-2.0 11/18/2017 Pt Alm1417 Mod intensity - 2.0-3.0 11/18/2017 Pt Upq0905 Hi intensity - 3.0-4.0 11/18/2017 Pt Kdm1008 PT 26.6 seconds 09/13/2017 Pt Gga5599 INR 2.4 09/13/2017 Pt Hyp0271 Low Intensity - 1.5-2.0 09/13/2017 Pt Jna5123 Mod intensity - 2.0-3.0 09/13/2017 Pt Qjp6290 Hi intensity - 3.0-4.0 09/13/2017 Pt Gop5411 PT 28.2 seconds 08/10/2017 Pt Vrk1914 INR 2.6 08/10/2017 Pt Pll2558 Low Intensity - 1.5-2.0 08/10/2017 Pt Rtd9308 Mod intensity - 2.0-3.0 08/10/2017 Pt Hdo7737 Hi intensity - 3.0-4.0 08/10/2017 Pt Hlq0589 PT 33.9 seconds 07/27/2017 Pt Zhn4697 INR 3.3 07/27/2017 Pt Abs6149 Low Intensity - 1.5-2.0 07/27/2017 Pt Qck8869 Mod intensity - 2.0-3.0 07/27/2017 Pt Lhy3009 Hi intensity - 3.0-4.0 07/27/2017 Pt Scb1952 PT 29.1 seconds 06/29/2017 Pt Qyb9729 INR 2.7 06/29/2017 Pt Ybd8265 Low Intensity - 1.5-2.0 06/29/2017 Pt Uax1380 Mod intensity - 2.0-3.0 06/29/2017 Pt Ynh1361 Hi intensity - 3.0-4.0 06/29/2017 Pt Nfh1519 PT 30.3 seconds 06/11/2017 Pt Jrd1797 INR 2.9 06/11/2017 Pt Yqp9411 Low Intensity - 1.5-2.0 06/11/2017 Pt Ite2539 Mod intensity - 2.0-3.0 06/11/2017 Pt Jcm3980 Hi intensity - 3.0-4.0 06/11/2017 Pt Ynw9453 PT 39.1 seconds 06/07/2017 Pt Vnu3130 INR 3.9 06/07/2017 Pt Fea3444 Low Intensity - 1.5-2.0 06/07/2017 Pt Iih3520 Mod intensity - 2.0-3.0 06/07/2017 Pt Zmy5709 Hi intensity - 3.0-4.0 06/07/2017 Pt Edd5559 PT 34.2 seconds 05/26/2017 Pt Oul2871 INR 3.3 05/26/2017 Pt Sya2585 Low Intensity - 1.5-2.0 05/26/2017 Pt Vum3595 Mod intensity - 2.0-3.0 05/26/2017 Pt Pyv9537 Hi intensity - 3.0-4.0 05/26/2017 Comp Metabolic Iyc187 NA 138 mEq/L 04/23/2017 Comp Metabolic Itk008 K 4.2 mEq/L 04/23/2017 Comp Metabolic Yne181 CL 101 mEq/L 04/23/2017 Comp Metabolic Yln207 CO2 28.0 mEq/L 04/23/2017 Comp Metabolic Ira381 AN ION GAP 13 04/23/2017 Comp Metabolic Dkd588 GL UCOSE 89 mg/dL 04/23/2017 Comp Metabolic Neu826 Cr eat 1.1 mg/dL 04/23/2017 Comp Metabolic Hzj973 eG FR 51 ml/min/1.73m2 04/23 Comp Metabolic Fyl782 BUN 26 mg/dL 04/23/2017 Comp Metabolic Vve282 B/ C Ratio 23.9 Ratio 04/23/2017 Comp Metabolic Bsu343 CA LCIUM 9.4 mg/dL 04/23/2017 Comp Metabolic Vcy283 AL K PHOS 95 U/L 04/23/2017 Comp Metabolic Iuh646 T(SGOT) 18 U/L 04/23/2017 Comp Metabolic Pjh516 AL T(SGPT) 17 U/L 04/23/2017 Comp Metabolic Fta020 BI LI T 0.7 mg/dL 04/23/2017 Comp Metabolic Aad099 AL BUMIN 3.2 g/dL 04/23/2017 Comp Metabolic Gju546 TP RO 5.6 g/dL 04/23/2017 Comp Metabolic Ckw200 GL OB 2.4 g/dL 04/23/2017 Comp Metabolic Cyg408 A/ G Ratio 1.3 Ratio 04/23/2017 Comp Metabolic Lti594 Os mo 280 mOsmo 04/23/2017 Pt Xqt9921 PT 28.6 seconds 04/23/2017 Pt Vnc0418 INR 2.7 04/23/2017 Pt Teg0323 Low Intensity - 1.5-2.0 04/23/2017 Pt Fku4513 Mod intensity - 2.0-3.0 04/23/2017 Pt Wxj1469 Hi intensity - 3.0-4.0 04/23/2017 Pt Vdv0239 PT 24.4 seconds 03/16/2017 Pt Udt0518 INR 2.2 03/16/2017 Pt Joe1262 Low Intensity - 1.5-2.0 03/16/2017 Pt Ory4777 Mod intensity - 2.0-3.0 03/16/2017 Pt Nmq6900 Hi intensity - 3.0-4.0 03/16/2017 Pt Rjf4665 PT 28.2 seconds 02/24/2017 Pt Wnu8386 INR 2.6 02/24/2017 Pt Bgq0626 Low Intensity - 1.5-2.0 02/24/2017 Pt Caj6205 Mod intensity - 2.0-3.0 02/24/2017 Pt Obh7766 Hi intensity - 3.0-4.0 02/24/2017 Pt Kun5361 PT 26.8 seconds 02/08/2017 Pt Zln6031 INR 2.5 02/08/2017 Pt Iih2219 Low Intensity - 1.5-2.0 02/08/2017 Pt Jlo8391 Mod intensity - 2.0-3.0 02/08/2017 Pt Brn9354 Hi intensity - 3.0-4.0 02/08/2017 Lipid Ord30 CHOL 150 mg/dL 01/25/2017 Lipid Ord30 HDL 55.0 mg/dl 01/25/2017 Lipid Ord30 TRIG 66 mg/dL 01/25/2017 Lipid Ord30 LDL 82 mg/dL 01/25/2017 Lipid Ord30 C/HDL 2.7 Ratio 01/25/2017 Pt Mzt5408 PT 29.9 seconds 01/25/2017 Pt Uyx7072 INR 2.8 01/25/2017 Pt Eqa0803 Low Intensity - 1.5-2.0 01/25/2017 Pt Vvu1927 Mod intensity - 2.0-3.0 01/25/2017 Pt Btq6445 Hi intensity - 3.0-4.0 01/25/2017 Comp Metabolic Bez586 NA 143 mEq/L 01/25/2017 Comp Metabolic Eqp395 K 3.9 mEq/L 01/25/2017 Comp Metabolic Rpn148 CL 108 mEq/L 01/25/2017 Comp Metabolic Rwz923 CO2 23.0 mEq/L 01/25/2017 Comp Metabolic Dda218 AN ION GAP 16 01/25/2017 Comp Metabolic Ipi809 GL UCOSE 80 mg/dL 01/25/2017 Comp Metabolic Czh006 Cr eat 1.0 mg/dL 01/25/2017 Comp Metabolic Hhy504 eG FR 57 ml/min/1.73m2 01/25 Comp Metabolic Ibi908 BUN 25 mg/dL 01/25/2017 Comp Metabolic Wdh643 B/ C Ratio 25.0 Ratio 01/25/2017 Comp Metabolic Yja721 CA LCIUM 8.5 mg/dL 01/25/2017 Comp Metabolic Kvp756 AL K PHOS 81 U/L 01/25/2017 Comp Metabolic Fzp557 T(SGOT) 19 U/L 01/25/2017 Comp Metabolic Csn123 AL T(SGPT) 23 U/L 01/25/2017 Comp Metabolic Iqa814 BI LI T 0.5 mg/dL 01/25/2017 Comp Metabolic Ega717 AL BUMIN 2.9 g/dL 01/25/2017 Comp Metabolic Cwv409 TP RO 5.1 g/dL 01/25/2017 Comp Metabolic Mzo311 GL OB 2.2 g/dL 01/25/2017 Comp Metabolic Axq570 A/ G Ratio 1.3 Ratio 01/25/2017 Comp Metabolic Ove888 Os mo 288 mOsmo 01/25/2017 Cbc With [...] 30.7 pg 01/25/2017 Cbc With Differential Ord2 Bibb% 8.2 % 01/25/2017 Cbc With Differential Ord2 [...] 3.10 K/ul 01/25/2017 Cbc With Differential Ord2 Bibb ABS# 0.8 K/ul 01/25/2017 Cbc With Differential Ord2 Eos ABS# 0.4 K/ul 01/25/2017 Cbc With Differential Ord2 Baso ABS# 0.1 K/ul 01/25/2017 Free T4 Ohj636 FREE T4 2.09 ng/dL 01/25/2017 Tsh Ord6 hTSH II 0.46 uIU/mL 01/25/2017 Pt Brj2252 PT 26.1 seconds 11/26/2016 Pt Jmc2331 INR 2.6 11/26/2016 Pt Aoi6233 Low Intensity - 1.5-2.0 11/26/2016 Pt Cuo2093 Mod intensity - 2.0-3.0 11/26/2016 Pt Joj2578 Hi intensity - 3.0-4.0 11/26/2016 Pt Dfs6599 PT 26.2 seconds 10/29/2016 Pt Xdh7050 INR 2.6 10/29/2016 Pt Bpk2694 Low Intensity - 1.5-2.0 10/29/2016 Pt Ghb3292 Mod intensity - 2.0-3.0 10/29/2016 Pt Cva1964 Hi intensity - 3.0-4.0 10/29/2016 Pt Qfr0966 PT 20.8 seconds 10/13/2016 Pt Rlj6636 INR 1.9 10/13/2016 Pt Mrr8160 Low Intensity - 1.5-2.0 10/13/2016 Pt Rhj7236 Mod intensity - 2.0-3.0 10/13/2016 Pt Gfr7573 Hi intensity - 3.0-4.0 10/13/2016 Pt Srm2378 PT 26.5 seconds 10/01/2016 Pt Zeo3682 INR 2.6 10/01/2016 Pt Xhv8999 Low Intensity - 1.5-2.0 10/01/2016 Pt Nhq3322 Mod intensity - 2.0-3.0 10/01/2016 Pt Hpx6360 Hi intensity - 3.0-4.0 10/01/2016 Pt Djl0545 PT 24.6 seconds 09/14/2016 Pt Ofo5496 INR 2.4 09/14/2016 Pt Atk7688 Low Intensity - 1.5-2.0 09/14/2016 Pt Oys9965 Mod intensity - 2.0-3.0 09/14/2016 Pt Rgo0562 Hi intensity - 3.0-4.0 09/14/2016 Pt Lyf4957 PT 18.0 seconds 09/07/2016 Pt Thm0905 INR 1.6 09/07/2016 Pt Tbr8449 Low Intensity - 1.5-2.0 09/07/2016 Pt Znr1449 Mod intensity - 2.0-3.0 09/07/2016 Pt Ecm0309 Hi intensity - 3.0-4.0 09/07/2016 Pt Uzk7913 PT 23.7 seconds 08/12/2016 Pt Tar8013 INR 2.2 08/12/2016 Pt Hnh1289 Low Intensity - 1.5-2.0 08/12/2016 Pt Juh2939 Mod intensity - 2.0-3.0 08/12/2016 Pt Yxu7781 Hi intensity - 3.0-4.0 08/12/2016 Pt Hak0502 PT 21.6 seconds 07/27/2016 Pt Lwr4573 INR 2.0 07/27/2016 Pt Efw8470 Low Intensity - 1.5-2.0 07/27/2016 Pt Fth4090 Mod intensity - 2.0-3.0 07/27/2016 Pt Xqq6514 Hi intensity - 3.0-4.0 07/27/2016 Pt Hdj8851 PT 26.0 seconds 06/15/2016 Pt Vdm4137 INR 2.5 06/15/2016 Pt Dof8058 Low Intensity - 1.5-2.0 06/15/2016 Pt Dpq1363 Mod intensity - 2.0-3.0 06/15/2016 Pt Ssj1329 Hi intensity - 3.0-4.0 06/15/2016 Pt Mpi8617 PT 18.8 seconds 06/01/2016 Pt Zbt2259 INR 1.7 06/01/2016 Pt Eiz1880 Low Intensity - 1.5-2.0 06/01/2016 Pt Ipu6015 Mod intensity - 2.0-3.0 06/01/2016 Pt Jmu4406 Hi intensity - 3.0-4.0 06/01/2016 Pt Brr7737 PT 20.8 seconds 05/12/2016 Pt Cgf2632 INR 1.9 05/12/2016 Pt Sso0147 Low Intensity - 1.5-2.0 05/12/2016 Pt Qix5055 Mod intensity - 2.0-3.0 05/12/2016 Pt Xre4210 Hi intensity - 3.0-4.0 05/12/2016 Pt Xxl4822 PT 24.5 seconds 04/10/2016 Pt Mox3723 INR 2.4 04/10/2016 Pt Grk9602 Low Intensity - 1.5-2.0 04/10/2016 Pt Juu8815 Mod intensity - 2.0-3.0 04/10/2016 Pt Slo6167 Hi intensity - 3.0-4.0 04/10/2016 Pt Ogx5146 PT 26.4 seconds 03/10/2016 Pt Yfk9107 INR 2.6 03/10/2016 Pt Lpr8570 Low Intensity - 1.5-2.0 03/10/2016 Pt Vco0451 Mod intensity - 2.0-3.0 03/10/2016 Pt Faz0718 Hi intensity - 3.0-4.0 03/10/2016 Pt Mhm7844 PT 24.9 seconds 03/06/2016 Pt Lcb9949 INR 2.4 03/06/2016 Pt Ziu9296 Low Intensity - 1.5-2.0 03/06/2016 Pt Sxz5789 Mod intensity - 2.0-3.0 03/06/2016 Pt Yji9073 Hi intensity - 3.0-4.0 03/06/2016 Pt Qlx6574 PT 21.9 seconds 02/25/2016 Pt Vrq3235 INR 2.0 02/25/2016 Pt Rlp5104 Low Intensity - 1.5-2.0 02/25/2016 Pt Adq3343 Mod intensity - 2.0-3.0 02/25/2016 Pt Nst5595 Hi intensity - 3.0-4.0 02/25/2016 Pt Cef4220 PT 21.8 seconds 02/21/2016 Pt Yfw1046 INR 2.0 02/21/2016 Pt Wih2114 Low Intensity - 1.5-2.0 02/21/2016 Pt Hfo4541 Mod intensity - 2.0-3.0 02/21/2016 Pt Spf1238 Hi intensity - 3.0-4.0 02/21/2016 Culture Urine [id number] URI NE CULTURE SEE NOTES 02/20/2016 Culture Urine [id number] Con tinued Results 02/20/2016 Urine Culture Ucult [...] 91.8 fl 02/14/2016 Cbc With Differential Ord2 Bibb% 9.3 % 02/14/2016 Cbc With Differential Ord2 [...] 2.55 K/ul 02/14/2016 Cbc With Differential Ord2 Bibb ABS# 0.8 K/ul 02/14/2016 Cbc With Differential Ord2 Eos ABS# 0.4 K/ul 02/14/2016 Cbc With Differential Ord2 Baso ABS# 0.1 K/ul 02/14/2016 Tsh Ord6 hTSH II 0.80 uIU/mL 02/14/2016 Pt Lib9877 PT 27.1 seconds 02/14/2016 Pt Vfj0420 INR 2.7 02/14/2016 Pt Gww6861 Low Intensity - 1.5-2.0 02/14/2016 Pt Mpb1370 Mod intensity - 2.0-3.0 02/14/2016 Pt Iso1277 Hi intensity - 3.0-4.0 02/14/2016 Free T4 Eir285 FREE T4 1.87 ng/dL 02/14/2016 Comp Metabolic Uoa430 NA 139 mEq/L 02/14/2016 Comp Metabolic Fyz037 K 3.8 mEq/L 02/14/2016 Comp Metabolic Ree744 CL 103 mEq/L 02/14/2016 Comp Metabolic Hxa717 CO2 27.0 mEq/L 02/14/2016 Comp Metabolic Cxk857 AN ION GAP 13 02/14/2016 Comp Metabolic Kcs846 GL UCOSE 91 mg/dL 02/14/2016 Comp Metabolic Gby629 Cr eat 1.0 mg/dL 02/14/2016 Comp Metabolic Qhx093 eG FR 58 ml/min/1.73m2 02/13 Comp Metabolic Mhc381 BUN 16 mg/dL 02/14/2016 Comp Metabolic Dzv054 B/ C Ratio 16.2 Ratio 02/14/2016 Comp Metabolic Qgl108 CA LCIUM 9.0 mg/dL 02/14/2016 Comp Metabolic Xrz101 AL K PHOS 88 U/L 02/14/2016 Comp Metabolic Juv242 T(SGOT) 17 U/L 02/14/2016 Comp Metabolic Zrv442 AL T(SGPT) 12 U/L 02/14/2016 Comp Metabolic Jbe828 BI LI T 0.6 mg/dL 02/14/2016 Comp Metabolic Jjm214 AL BUMIN 3.2 g/dL 02/14/2016 Comp Metabolic Sbd287 TP RO 5.8 g/dL 02/14/2016 Comp Metabolic Inf226 GL OB 2.6 g/dL 02/14/2016 Comp Metabolic Mwb130 A/ G Ratio 1.3 Ratio 02/14/2016 Comp Metabolic Brh517 Os mo 278 mOsmo 02/14/2016 Pt Lrt9580 PT 34.6 seconds 02/06/2016 Pt Nqg0630 INR 3.7 02/06/2016 Pt Ige0940 Low Intensity - 1.5-2.0 02/06/2016 Pt Goe0310 Mod intensity - 2.0-3.0 02/06/2016 Pt Zat5524 Hi intensity - 3.0-4.0 02/06/2016 Pt Uvs8140 PT 33.3 seconds 01/23/2016 Pt Eeo9512 INR 3.5 01/23/2016 Pt Sig3346 Low Intensity - 1.5-2.0 01/23/2016 Pt Buj3238 Mod intensity - 2.0-3.0 01/23/2016 Pt Uqz4844 Hi intensity - 3.0-4.0 01/23/2016 Pt Qeu7981 PT 30.5 seconds 12/31/2015 Pt Oyg2639 INR 3.2 12/31/2015 Pt Iuc9504 Low Intensity - 1.5-2.0 12/31/2015 Pt Vnk5528 Mod intensity - 2.0-3.0 12/31/2015 Pt Oft2970 Hi intensity - 3.0-4.0 12/31/2015 Pt Dax9102 PT 35.6 seconds 12/25/2015 Pt Loh6966 INR 3.9 12/25/2015 Pt Kuh4369 Low Intensity - 1.5-2.0 12/25/2015 Pt Fhh9253 Mod intensity - 2.0-3.0 12/25/2015 Pt Vio7255 Hi intensity - 3.0-4.0 12/25/2015 Pt Qbz4268 PT 30.8 seconds 11/21/2015 Pt Mis3687 INR 3.2 11/21/2015 Pt Rqu7251 Low Intensity - 1.5-2.0 11/21/2015 Pt Ddh4839 Mod intensity - 2.0-3.0 11/21/2015 Pt Otp1676 Hi intensity - 3.0-4.0 11/21/2015 Uric Acid [...] 30.0 pg 11/20/2015 Cbc With Differential Ord2 Bibb% 8.1 % 11/20/2015 Cbc With Differential Ord2 [...] 2.51 K/ul 11/20/2015 Cbc With Differential Ord2 Bibb ABS# 0.9 K/ul 11/20/2015 Cbc With Differential Ord2 Eos ABS# 0.3 K/ul 11/20/2015 Cbc With Differential Ord2 Baso ABS# 0.0 K/ul 11/20/2015 Comp Metabolic Nhs496 NA 137 mEq/L 10/22/2015 Comp Metabolic Elb228 K 3.9 mEq/L 10/22/2015 Comp Metabolic Xfg062 CL 100 mEq/L 10/22/2015 Comp Metabolic Ksd622 CO2 31.0 mEq/L 10/22/2015 Comp Metabolic Vud530 AN ION GAP 10 10/22/2015 Comp Metabolic Hsy826 GL UCOSE 94 mg/dL 10/22/2015 Comp Metabolic Jyk186 Cr eat 1.0 mg/dL 10/22/2015 Comp Metabolic Qun965 eG FR 55 ml/min/1.73m2 10/21 Comp Metabolic Vnd476 BUN 19 mg/dL 10/22/2015 Comp Metabolic Ddy367 B/ C Ratio 18.3 Ratio 10/22/2015 Comp Metabolic Yqh498 CA LCIUM 8.8 mg/dL 10/22/2015 Comp Metabolic Zrm212 AL K PHOS 83 U/L 10/22/2015 Comp Metabolic Pdk587 T(SGOT) 15 U/L 10/22/2015 Comp Metabolic Cpk198 AL T(SGPT) 13 U/L 10/22/2015 Comp Metabolic Tzo404 BI LI T 0.9 mg/dL 10/22/2015 Comp Metabolic Bzc532 AL BUMIN 2.8 g/dL 10/22/2015 Comp Metabolic Tsw557 TP RO 5.4 g/dL 10/22/2015 Comp Metabolic Ktn061 GL OB 2.6 g/dL 10/22/2015 Comp Metabolic Vtw347 A/ G Ratio 1.1 Ratio 10/22/2015 Comp Metabolic Gcj738 Os mo 276 mOsmo 10/22/2015 Bili D Ord93 BILI D 0.1 mg/dL 10/22/2015 Bili D Ord93 BILI I 0.8 mg/dL 10/22/2015 Pt Dag9435 PT 22.8 seconds 10/22/2015 Pt Mpt2318 INR 2.1 10/22/2015 Pt Iyf7400 Low Intensity - 1.5-2.0 10/22/2015 Pt Lem1262 Mod intensity - 2.0-3.0 10/22/2015 Pt Eye0668 Hi intensity - 3.0-4.0 10/22/2015 Pt Nmg8765 PT 28.0 seconds 09/16/2015 Pt Utr8200 INR 2.7 09/16/2015 Pt Hbi8675 Low Intensity - 1.5-2.0 09/16/2015 Pt Viz1710 Mod intensity - 2.0-3.0 09/16/2015 Pt Ugb1659 Hi intensity - 3.0-4.0 09/16/2015 Tsh Ord6 hTSH II 1.40 uIU/mL 09/16/2015 Free T4 Nun265 FREE T4 1.73 ng/dL 09/16/2015 Lipid Ord30 CHOL 169 mg/dL 09/16/2015 Lipid Ord30 HDL 66.0 mg/dl 09/16/2015 Lipid Ord30 TRIG 78 mg/dL 09/16/2015 Lipid Ord30 LDL 87 mg/dL 09/16/2015 Lipid Ord30 C/HDL 2.6 Ratio 09/16/2015 Pt Uho5470 PT 26.6 seconds 08/21/2015 Pt Kwl0487 INR 2.6 08/21/2015 Pt Apk0639 Low Intensity - 1.5-2.0 08/21/2015 Pt Rnk0065 Mod intensity - 2.0-3.0 08/21/2015 Pt Avj5548 Hi intensity - 3.0-4.0 08/21/2015 Comp Metabolic Knc408 NA 141 mEq/L 08/08/2015 Comp Metabolic Znq345 K 3.3 mEq/L 08/08/2015 Comp Metabolic Zud773 CL 102 mEq/L 08/08/2015 Comp Metabolic Lcc606 CO2 31.0 mEq/L 08/08/2015 Comp Metabolic Sov762 AN ION GAP 11 08/08/2015 Comp Metabolic Wty339 GL UCOSE 83 mg/dL 08/08/2015 Comp Metabolic Vcc428 Cr eat 1.0 mg/dL 08/08/2015 Comp Metabolic Vgs652 eG FR 55 ml/min/1.73m2 08/08 Comp Metabolic Esx456 BUN 19 mg/dL 08/08/2015 Comp Metabolic Bpw364 B/ C Ratio 18.3 Ratio 08/08/2015 Comp Metabolic Mtr849 CA LCIUM 8.9 mg/dL 08/08/2015 Comp Metabolic Fcq770 AL K PHOS 84 U/L 08/08/2015 Comp Metabolic Kwc568 T(SGOT) 20 U/L 08/08/2015 Comp Metabolic Hyx210 AL T(SGPT) 18 U/L 08/08/2015 Comp Metabolic Buz222 BI LI T 0.6 mg/dL 08/08/2015 Comp Metabolic Rfk339 AL BUMIN 3.3 g/dL 08/08/2015 Comp Metabolic Hld682 TP RO 5.9 g/dL 08/08/2015 Comp Metabolic Kjy162 GL OB 2.6 g/dL 08/08/2015 Comp Metabolic Jun018 A/ G Ratio 1.3 Ratio 08/08/2015 Comp Metabolic Zcx286 Os mo 283 mOsmo 08/08/2015 Cbc With [...] 30.0 pg 08/08/2015 Cbc With Differential Ord2 Bibb% 8.2 % 08/08/2015 Cbc With Differential Ord2 [...] 2.90 K/ul 08/08/2015 Cbc With Differential Ord2 Bibb ABS# 0.9 K/ul 08/08/2015 Cbc With Differential [...] Ord93 BILI I 0.5 mg/dL 08/08/2015 Pt Lpx3267 PT 31.8 seconds 08/05/2015 Pt Lcz1196 INR 3.2 08/05/2015 Pt Gum9973 Low Intensity - 1.5-2.0 08/05/2015 Pt Gfm5573 Mod intensity - 2.0-3.0 08/05/2015 Pt Uel1323 Hi intensity - 3.0-4.0 08/05/2015 Pt Etx4188 PT 27.4 seconds 06/27/2015 Pt Yng5911 INR 2.6 06/27/2015 Pt Xkh3450 Low Intensity - 1.5-2.0 06/27/2015 Pt Bmf1323 Mod intensity - 2.0-3.0 06/27/2015 Pt Rqq8484 Hi intensity - 3.0-4.0 06/27/2015 Tsh Ord6 [...] Ord2 RDW 15.1 % 05/31/2015 Free T4 Mcn490 FREE T4 1.89 ng/dL 05/31/2015 Comp Metabolic Obc064 NA 140 mEq/L 05/31/2015 Comp Metabolic Dsi381 K 3.3 mEq/L 05/31/2015 Comp Metabolic Ydd864 CL 99 mEq/L 05/31/2015 Comp Metabolic Zuv244 CO2 30.0 mEq/L 05/31/2015 Comp Metabolic Pcg913 AN ION GAP 14 05/31/2015 Comp Metabolic Qlj538 GL UCOSE 70 mg/dL 05/31/2015 Comp Metabolic Wei959 Cr eat 1.0 mg/dL 05/31/2015 Comp Metabolic Flf141 eG FR 55 ml/min/1.73m2 05/31 Comp Metabolic Gfg600 BUN 23 mg/dL 05/31/2015 Comp Metabolic Dfy576 B/ C Ratio 22.1 Ratio 05/31/2015 Comp Metabolic Nea471 CA LCIUM 8.9 mg/dL 05/31/2015 Comp Metabolic Wiz950 AL K PHOS 86 U/L 05/31/2015 Comp Metabolic Spc318 T(SGOT) 28 U/L 05/31/2015 Comp Metabolic Pis830 AL T(SGPT) 30 U/L 05/31/2015 Comp Metabolic Tpw287 BI LI T 0.4 mg/dL 05/31/2015 Comp Metabolic Awx333 AL BUMIN 3.3 g/dL 05/31/2015 Comp Metabolic Ksh019 TP RO 6.0 g/dL 05/31/2015 Comp Metabolic Lly691 GL OB 2.7 g/dL 05/31/2015 Comp Metabolic Zmt662 A/ G Ratio 1.2 Ratio 05/31/2015 Comp Metabolic Wif997 Os mo 282 mOsmo 05/31/2015 Pt Pna7377 PT 23.3 seconds 04/15/2015 Pt Fnx3378 INR 2.2 04/15/2015 Pt Bnh9950 Low Intensity - 1.5-2.0 04/15/2015 Pt Fre9841 Mod intensity - 2.0-3.0 04/15/2015 Pt Knq8523 Hi intensity - 3.0-4.0 04/15/2015 Pt Hve4460 PT 19.5 seconds 04/04/2015 Pt Lkn1862 INR 1.7 04/04/2015 Pt Vnj9299 Low Intensity - 1.5-2.0 04/04/2015 Pt Lnu9454 Mod intensity - 2.0-3.0 04/04/2015 Pt Wae0206 Hi intensity - 3.0-4.0 04/04/2015 Pt Iag2507 PT 39.8 seconds 04/01/2015 Pt Ipi1578 INR 4.3 04/01/2015 Pt Dms6692 Low Intensity - 1.5-2.0 04/01/2015 Pt Lsa3163 Mod intensity - 2.0-3.0 04/01/2015 Pt Qtv8034 Hi intensity - 3.0-4.0 04/01/2015 Metabolic Ord15 [...] Metabolic Ord15 CALCIUM 8.7 mg/dL 02/28/2015 Pt Bjn1467 PT 31.4 seconds 02/28/2015 Pt Lgi5976 INR 3.2 02/28/2015 Pt Scw9426 Low Intensity - 1.5-2.0 02/28/2015 Pt Aaf1433 Mod intensity - 2.0-3.0 02/28/2015 Pt Tuh2757 Hi intensity - 3.0-4.0 02/28/2015 Pt Igr1011 PT 23.2 seconds 01/18/2015 Pt Fbe4910 INR 2.1 01/18/2015 Pt Pvn9522 Low Intensity - 1.5-2.0 01/18/2015 Pt Kmd8592 Mod intensity - 2.0-3.0 01/18/2015 Pt Nxo8094 Hi intensity - 3.0-4.0 01/18/2015 Pt Lih6024 PT 18.2 seconds 01/10/2015 Pt Tzs7077 INR 1.6 01/10/2015 Pt Pyl2822 Low Intensity - 1.5-2.0 01/10/2015 Pt Bwb1416 Mod intensity - 2.0-3.0 01/10/2015 Pt Mzk2619 Hi intensity - 3.0-4.0 01/10/2015 Review of Systems System Result Effective Dates Constitutional No recent illness 03/24/2018 Constitutional No [...] rhythm 07/31/2016 None Full Exam - General [facility] Constitutional general appearance Overall: well developed 05/01/2016 [...] 03/24/2018 ADMIN PNEUMOCOCCAL V ACCINE SNOMED CT: 77118974 CPT-4: G0009 03/24/2018 FLU VACC PRSV FREE I NC ANTIG Formatting Model/CDA Sections, Assigned to/Dorothea Tan CPT-4: 55864Ontfgiy 03/24/2018 Pneumococcal Polysac charide Vaccine, 23-Valent, Ad CPT-4: 81822 03/24/2018 TRIAMCINOLONE ACET I [place] NOS CPT-4: J3301 06/15/2017 THER/PROPH/DIAG INJ SC/IM CPT-4: 91370 06/15/2017 ADMIN PNEUMOCOCCAL V ACCINE SNOMED CT: 42098149 CPT-4: G0009 03/16/2017 ADMIN INFLUENZA VIRU S VAC CPT-4: G0008 03/16/2017 FLU VAC NO PRSV 4 VA L 3 YRS+ CPT-4: 65101 03/16/2017 PNEUMOCOCCAL VACC [address]: 32905857 CPT-4: 44725 03/16/2017 URINALYSIS NONAUTO W /O SCOPE CPT-4: 91156 08/26/2016 THER/PROPH/DIAG INJ SC/IM CPT-4: 33488 07/22/2016 TRIAMCINOLONE ACET I [place] NOS CPT-4: J3301 07/22/2016 ROCEPHIN, PER 250 MG CPT-4: J0696 07/22/2016 TRIAMCINOLONE ACET I [place] NOS CPT-4: J3301 02/05/2015 Vital Signs Date Vital 03/24/2018 Blood Pressure 1: 130/72 Code: 8480-6 BMI: 33.4 Code: 53368-5 Heart Rate 1: 82 bpm Height: 5'7" SpO2: 93% Weight: 213 lbs 11/18/2017 Blood Pressure 1: 128/70 Code: 8480-6 BMI: 33.6 Code: 89035-9 Heart Rate 1: 98 bpm Height: 5'7" SpO2: 97% Weight: 214 lbs 8 oz 09/30/2017 Blood Pressure 1: 100/50 Code: 8480-6 BMI: 34.0 Code: 79439-3 Heart Rate 1: 66 bpm Height: 5'7" SpO2: 96% Weight: 217 lbs 08/17/2017 Blood Pressure 1: 104/60 Code: 8480-6 BMI: 33.7 Code: 50080-0 Heart Rate 1: 99 bpm Height: 5'7" SpO2: 97% Weight: 215 lbs 06/15/2017 Blood Pressure 1: 120/64 Code: 8480-6 BMI: 33.5 Code: 95308-9 Heart Rate 1: 91 bpm Height: 5'7" SpO2: 94% Weight: 214 lbs 04/01/2017 Blood Pressure 1: 110/68 Code: 8480-6 BMI: 154.4 Code: 87128-9 Heart Rate 1: 66 bpm Height: 2'7" SpO2: 95% Weight: 211 lbs 03/16/2017 Blood Pressure 1: 130/72 Code: 8480-6 BMI: 33.0 Code: 93233-9 Heart Rate 1: 95 bpm Height: 5'7" SpO2: 97% Weight: 211 lbs 02/09/2017 Blood Pressure 1: 120/70 Code: 8480-6 BMI: 32.9 Code: 37126-0 Heart Rate 1: 78 bpm Height: 5'7" SpO2: 96% Weight: 210 lbs 10/13/2016 Blood Pressure 1: 118/76 Code: 8480-6 BMI: 32.6 Code: 14587-7 Heart Rate 1: 97 bpm Height: 5'7" SpO2: 98% Weight: 208 lbs 07/31/2016 Blood Pressure 1: 110/64 Code: 8480-6 BMI: 32.1 Code: 49987-9 Heart Rate 1: 79 bpm Height: 5'7" SpO2: 94% Weight: 205 lbs 07/22/2016 Blood Pressure 1: 108/74 Code: 8480-6 BMI: 32.1 Code: 19313-0 Heart Rate 1: 71 bpm Height: 5'7" SpO2: 97% Temperature: 36.9 (C ) / 98.4 (F) Weight: 205 lbs 05/01/2016 Blood Pressure 1: 120/72 Code: 8480-6 BMI: 32.7 Code: 13168-8 Heart Rate 1: 75 bpm Height: 5'7" SpO2: 94% Weight: 209 lbs 04/06/2016 Blood Pressure 1: 106/62 Code: 8480-6 BMI: 32.7 Code: 25645-9 Heart Rate 1: 83 bpm Height: 5'7" SpO2: 97% Weight: 209 lbs 03/06/2016 Blood Pressure 1: 112/68 Code: 8480-6 BMI: 32.7 Code: 51861-5 Heart Rate 1: 90 bpm Height: 5'7" SpO2: 97% Weight: 209 lbs 03/03/2016 Blood Pressure 1: 120/62 Code: 8480-6 BMI: 32.7 Code: 05521-6 Heart Rate 1: 92 bpm Height: 5'7" SpO2: 98% Weight: 209 lbs 02/07/2016 Blood Pressure 1: 110/64 Code: 8480-6 BMI: 32.7 Code: 58923-0 Heart Rate 1: 87 bpm Height: 5'7" SpO2: 97% Weight: 209 lbs 12/13/2015 Blood Pressure 1: 110/64 Code: 8480-6 BMI: 33.5 Code: 21085-6 Heart Rate 1: 90 bpm Height: 5'7" SpO2: 97% Weight: 214 lbs 12/03/2015 Blood Pressure 1: 132/76 Code: 8480-6 BMI: 33.4 Code: 34030-5 Heart Rate 1: 82 bpm Height: 5'7" SpO2: 99% Weight: 213 lbs 11/20/2015 Blood Pressure 1: 108/68 Code: 8480-6 BMI: 32.4 Code: 59230-7 Heart Rate 1: 77 bpm Height: 5'7" SpO2: 97% Weight: 207 lbs 09/17/2015 Blood Pressure 1: 122/76 Code: 8480-6 BMI: 33.0 Code: 92125-0 Heart Rate 1: 91 bpm Height: 5'7" SpO2: 97% Weight: 211 lbs 05/31/2015 Blood Pressure 1: 128/82 Code: 8480-6 BMI: 33.4 Code: 78440-3 Heart Rate 1: 98 bpm Height: 5'7" SpO2: 99% Weight: 213 lbs 02/05/2015 Blood Pressure 1: 128/80 Code: 8480-6 BMI: 32.6 Code: 93850-3 Heart Rate 1: 86 bpm Height: 5'7" SpO2: 97% Weight: 208 lbs 11/20/2014 Blood Pressure 1: 128/90 Code: 8480-6 BMI: 30.9 Code: 97438-7 Heart Rate 1: 94 bpm Height: 5'7" Weight: 197 lbs Functional Status No Functional Status data History of Present Illness Symptom Name Status Resu lt Effective Date Notes hypertension Onset and Resolution ongoing 03/24/2018 None [...] Findings Denies fever 05/31/2015 None 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 02/05/2015 None hypothyroid Pertinent Findings coarse [...] Denies extremity weakness 11/20/2014 None 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 P ATIENT, LEVEL IV Diagnosis: Essential (primary) hypertension[ICD10: I10] Diagnosis: Atrophy of thyroid (acquired)[ICD10: E03.4] Diagnosis: Chronic atrial fibrillation[ICD10: I48.2] Valerie Pisano MD, [facility] CPT-4: 30361 03/24/2018 ([id number]) 67086 EST. P ATIENT, LEVEL IV Diagnosis: Essential (primary) hypertension[ICD10: I10] Diagnosis: Atrophy of thyroid (acquired)[ICD10: E03.4] Diagnosis: Chronic atrial fibrillation[ICD10: I48.2] Valerie Pisano MD, [facility] CPT-4: 68174 11/18/2017 [id number] EST. PATIENT, LEVEL IV Diagnosis: Localized edema[ICD10: R60.0] Roxie Pisano MD, [facility] CPT-4: 34916 09/30/2017 ([id number]) 54080 EST. P ATIENT, LEVEL III Diagnosis: Essential (primary) hypertension[ICD10: I10] Valerie Pisano MD, C CPT-4: 01557 08/17/2017 ([id number]) 22532 EST. P ATIENT, LEVEL IV Diagnosis: Essential (primary) hypertension[ICD10: I10] Diagnosis: Atrophy of thyroid (acquired)[ICD10: E03.4] Diagnosis: Chronic atrial fibrillation[ICD10: I48.2] Diagnosis: Cervicalgia[ICD10: M54.2] Diagnosis: Other muscle spasm[ICD10: M62.838] Valerie Pisano MD, [facility] CPT- 4: 25417 06/15/2017 16015 EST. PATIENT, LEVEL III Diagnosis: Laceration without foreign body of other finger without damage to nail, initial encounter[ICD10: S61.218A] Roxie Pisano MD, [facility] CPT-4: 59426 04/01/2017 ([id number]) 77764 EST. P ATIENT, LEVEL IV Diagnosis: Chronic atrial fibrillation[ICD10: I48.2] Diagnosis: assisted (current) use of anticoagulants[ICD10: Z79.01] Diagnosis: Encounter for immunization[ICD10: Z23] Diagnosis: Atrophy of thyroid (acquired)[ICD10: E03.4] Valerie Pisano MD, [facility] CPT-4: 08801 03/16/2017 ([id number]) 58990 EST. P ATIENT, LEVEL IV Diagnosis: Chronic atrial fibrillation[ICD10: I48.2] Diagnosis: Essential (primary) hypertension[ICD10: I10] Diagnosis: Other fatigue[ICD10: R53.83] Diagnosis: assisted (current) use of anticoagulants[ICD10: Z79.01] Diagnosis: Atrophy of thyroid (acquired)[ICD10: E03.4] Valerie Pisano MD, C CPT-4: 18674 02/09/2017 ([id number]) 66426 EST. P ATIENT, LEVEL IV Diagnosis: Essential (primary) hypertension[ICD10: I10] Diagnosis: Chronic atrial fibrillation[ICD10: I48.2] Diagnosis: Tinea corporis[ICD10: B35.4] Diagnosis: assisted (current) use of anticoagulants[ICD10: Z79.01] Diagnosis: Other skin changes[ICD10: R23.8] Valerie Pisano MD, [facility] CPT-4: 52808 10/13/2016 [id number] EST. PATIENT, LEVEL III Diagnosis: Other acute sinusitis[ICD10: J01.80] Diagnosis: Other allergic rhinitis[ICD10: J30.89] Roxie Pisano MD, [facility] CPT-4: 42153 07/31/2016 ([id number]) 62892 EST. P ATIENT, LEVEL III Diagnosis: Acute recurrent maxillary sinusitis[ICD10: J01.01] Valerie Pisano MD, C CPT-4: 35998 07/22/2016 44404 EST. PATIENT, LEVEL IV Diagnosis: Essential (primary) hypertension[ICD10: I10] Diagnosis: Other allergic rhinitis[ICD10: J30.89] Diagnosis: Localized edema[ICD10: R60.0] Roxie Pisano MD, [facility] CPT-4: 24463 05/01/2016 31441 EST. PATIENT, LEVEL III Diagnosis: Cellulitis of left lower limb[ICD10: L03.116] Diagnosis: Localized edema[ICD10: R60.0] Roxie Pisano MD, [facility] CPT-4: 79462 04/06/2016 ([id number]) Miscellaneou s no charge Diagnosis: Cellulitis of left lower limb[ICD10: L03.116] Diagnosis: Localized edema[ICD10: R60.0] Roxie Pisano MD, [facility] CPT-4: 94414 03/10/2016 ([id number]) Miscellaneou s no charge Diagnosis: Cellulitis of left lower limb[ICD10: L03.116] Roxie Pisano MD, [facility] CPT-4: 30124 03/06/2016 52125 EST. PATIENT, LEVEL IV Diagnosis: Cellulitis of left lower limb[ICD10: L03.116] Diagnosis: Localized edema[ICD10: R60.0] Roxie Pisano MD, [facility] CPT-4: 96517 03/03/2016 ([id number]) 48133 EST. 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 P ATIENT, LEVEL III Diagnosis: Iliotibial band syndrome, right leg[ICD10: M76.31] Diagnosis: Localized edema[ICD10: R60.0] Brielle Pisano MD, [facility] CPT- 4: 84381 12/13/2015 ([id number]) 01392 EST. P ATIENT, LEVEL III Diagnosis: Localized edema[ICD10: R60.0] Diagnosis: Essential (primary) hypertension[ICD10: I10] Brielle Pisano MD, [facility] CPT-4: 78678 12/03/2015 ([id number]) 47179 EST. 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 PATIENT, LEVEL IV Diagnosis: Essential (primary) hypertension[ICD10: I10] Diagnosis: assisted (current) use of anticoagulants[ICD10: Z79.01] Diagnosis: Muscle spasm of back[ICD10: M62.830] Roxie Pisano MD, [facility] CPT- 4: 77179 09/17/2015 ([id number]) 22774 EST. P ATIENT, LEVEL IV Diagnosis: Localized edema[ICD10: R60.0] Diagnosis: Other specified hypothyroidism[ICD10: E03.8] Diagnosis: Essential (primary) hypertension[ICD10: I10] Brielle Pisano MD, [facility] CPT-4: 52874 05/31/2015 ([id number]) 09764 EST. P ATIENT, LEVEL III Diagnosis: ALLERGIC RHINITIS[ICD9: 477.9] Diagnosis: ESSENTIAL HYPERTENSION[ICD9: 401.9] Brielle Pisano MD, [facility] CPT-4: 40277 02/05/2015 ([id number]) OFFICE VISI T, NEW - LEVEL 4 Diagnosis: ESSENTIAL HYPERTENSION[ICD9: 401.9] Diagnosis: HYPOTHYROIDISM[ICD9: 244.9] Diagnosis: ACTINIC KERATOSIS[ICD9: 702.0] Valerie Pisano MD, [facility] CPT-4: 91151 11/20/2014 Plan of Care Planned Activity Notes C odes Status Date Patient Education: Patient Medication Summary Completed 07/11/2018 [...] given today. 03/24/2018 Appointment: Valerie Pisano WPtel: [address] [place], [place] [phone] (15 min) Moderate 03/24/2018 Patient Education: Patient [...] of control. 11/18/2017 Appointment: Valerie Pisano WPtel: [address] [place], [place] [phone] (15 min) Moderate 11/18/2017 Patient Education: Patient Medication Summary Completed 11/18/2017 Referral: [facility] WPtel: [address] [place], [place] [phone] Pt notified at appointment Appointment Confirmed [...] Unna Boots 09/30/2017 Appointment: Roxie Cazares WPtel: [address] [place], [place] [phone] (30 min) Complex 09/30/2017 Patient Education: Patient Medication Summary Completed 09/30/2017 Care Plan: Referral Order SNOMED-CT : [id number] Pending 09/30/2017 Visit Plan: Hypertension - well [...] supportive care at this time. 08/17/2017 Appointment: [facility] [phone] [id number] [place] (15 min) Moderate 08/17/2017 Patient [...] muscles. allergies - kenalog 40mg im bristol [facility] squibb - lot # [id number] expires september 2018 06/15/2017 Visit Plan: Hypertension [...] muscles. 06/15/2017 Appointment: Valerie Pisano WPtel: [phone] [facility] (15 min) Moderate 06/15/2017 Patient Education: Patient Medication Summary Completed 06/15/2017 Care Plan: Referral Order SNOMED-CT : [id number] Pending 06/15/2017 Appointment: Nurse Visit 04/05/2017 Appointment: [...] booster. 04/01/2017 Appointment: [facility] [phone] [facility] ([facility] min) Moderate 04/01/2017 Patient Education: Patient [...] today 03/16/2017 Appointment: [facility] [phone] [facility] (15 min) Moderate 03/16/2017 Patient Education: [...] allergy spray. 02/09/2017 Appointment: Valerie Pisano WPtel: [address] [place], [place] [id number] (15 min) Moderate 02/09/2017 Patient Education: Patient [...] nystatin 10/13/2016 Appointment: Valerie Pisano WPtel: [phone] (15 min) Moderate 10/13/2016 Patient Education: Patient Medication Summary Completed 10/13/2016 Patient Education: Obesity Completed 10/13/2016 Patient Education: Hypertension Completed 10/13/2016 Care Plan: Urine Culture Pending 08/31/2016 Appointment: Roxie Cazares WPtel: [facility] [address] Lab Draw 08/27/2016 Appointment: Nurse Visit [...] allergy spray. 07/31/2016 Appointment: Brielle Cavazos WPtel: [facility]7 [phone] (30 min) Complex 07/31/2016 Patient Education: Patient Medication Summary Completed 07/31/2016 Patient Education: Obesity Completed 07/31/2016 Visit Plan: Sinusitis - Pt has acut e infection - pain in face, maxillary region, Pt informed to use decongestant, RX given to patient, sinus rinses also recommended. Call if symptoms do not show improvement. 07/22/2016 Appointment: Valerie Pisano WPtel: [phone] [facility]66[facility] (15 min) Moderate 07/22/2016 Patient Education: Patient [...] edema. 05/01/2016 Appointment: Brielle Cavazos WPtel: [phone] [phone] (30 min) Complex 05/01/2016 Patient Education: [...] edema. 04/06/2016 Appointment: [facility]ox[facility]ares [facility]el[phone] [facility] (30 min) Complex 04/06/2016 Patient Education: Patient Medication Summary Completed 04/06/2016 Patient Education: Obesity Completed 04/06/2016 Visit Plan: left foot - improved - pt finished with antibiotics - continue to monitor - notify clinic with any concerns. Repeat INR today. 03/10/2016 Appointment: Brielle Cavazos WPtel: [phone] [phone] (30 min) Complex 03/10/2016 Patient Education: Patient Medication Summary Completed 03/10/2016 Visit Plan: Cellulitis - continue w ith oral antibiotics as previously directed, return to clinic as previously directed, call for acute change in symptoms, worsening redness, warmth, discharge. 03/06/2016 Appointment: Brielle Cavazos WPtel: [phone] [phone] (15 min) Moderate 03/06/2016 Patient Education: Patient Medication Summary Completed 03/06/2016 Patient Education: Obesity Completed 03/06/2016 Visit Plan: Cellulitis - continue w ith oral antibiotics as previously directed, return to clinic as previously directed, call for acute change in symptoms, worsening redness, warmth, discharge. 03/03/2016 Appointment: Brielle Cavazos WPtel: [phone] [phone] (15 min) Moderate 03/03/2016 Patient Education: [...] Brielle Cavazos [facility]Ptel[facility] [phone] [phone] (30 min) Complex 02/07/2016 Patient Education: Patient Medication Summary Completed 02/07/2016 Patient Education: Obesity Completed 02/07/2016 Patient Education: Hypertension Completed 02/07/2016 Appointment: Brielle Cavazos WPtel: [phone] [facility] [place] [address] (30 min) Complex 02/04/2016 Visit Plan: Iliotibial [...] 12/13/2015 Appointment: Brielle Cavazos WPtel: [facility]2 [facility] [place] [address] (15 min) Moderate 12/13/2015 Patient Education: Patient [...] at home. 12/03/2015 Appointment: Brielle Cavazos WPtel: [phone] [facility] [place] [address] (30 min) Complex 12/03/2015 Patient Education: Patient [...] Hypertension Completed 02/05/2015 Appointment: Valerie Pisano WPtel: [facility]5 [phone] (15 min) Moderate 01/29/2015 Visit Plan: [...] of control. 11/20/2014 Appointment: Valerie Pisano WPtel: [facility]0 [facility] [place] ([place]) New Patient 11/20/2014 Patient Education: Patient Medication Summary Completed 11/20/2014 Patient Education: Hypertension Completed 11/20/2014 Patient Education: Patient Medication Summary Completed 10/19/2014 Referral: [facility] WPtel: Referral Appointment Requested Referral: [facility] WPtel: [address] [place] [place] Referral Appointment Confirmed Instructions Comment CHECK [...] readings at home. . left foot - [facility] ed - pt finished with [...] checked, call if bruising does not improve. get blood work one w [place] before next appt - fasting labs Decrease [...] neck muscles. allergies - kenalog 40mg im [employer] - lot # [id number] expires september 2018 . Hypertension - wel [...]
--- OUTSIDE RECORDS SUMMARY | 2019-09-12 12:01 | XMS REPORT | CCD ---
Author Author Clara Pisano Organization [facility] Address [address] [place] [address] Phone Care Team Providers Care Software Security Architect Name Role Phone PP Unavailable CCM Unavailable Summary Purpose Interface Exchange Insurance Providers Payer name Policy type / Coverage type Covered green party ID Effective Begin Date Effective End Date WPS Medicare Part B Medicare Part B [id number] 2018 Unknown [employer] Medicare Part B [id number] 2018 Unknown Family history Sister Diagnosis Age At Onset defect Unknown Breast cancer Unknown Daughter Diagnosis Age At Onset Breast cancer Unknown Mother Diagnosis Age At Onset No Family Disease Entered N/A Social History Social History Element Codes Description Effective Dates Marital status Unknown M arried Lane 11/20/2014 Number of children Unknown 6 11/20/2014 Employment Unknown Retir ed 11/20/[address]: 0280283 Quit over 10 years ago 1963 11/20/2014 Alcohol history Unknown occasionally drinks alcohol 11/20/2014 Allergies, Adverse Reactions, Alerts Substance Reaction Codes Entered Date Inactivated Date Status SULFA(SULFONAMIDE AN TIBIOTICS) rash Unknown 11/20/2014 No Inactive Date Active Past Medical History Illness Codes Condition Status Onset Date Resolved Date Abnormal results of kidney function studies ICD-9: 794.4 ICD-10: R94.4 Active 06/30/2018 Unknown Atrophy of thyroid ( acquired) ICD-9: 244.8 ICD-10: E03.4 Active 02/09/2017 Unknown Chronic atrial fibri llation ICD-9: 427.31 ICD-10: I48.2 Active 02/06/2016 Unknown Encounter for immuni zation ICD-9: V03.9 ICD-10: Z23 Active 03/16/2017 Unknown Essential (primary) hypertension ICD-9: 401.9 ICD-10: I10 Active 04/30/2016 Unknown Localized edema ICD-9: 782.3 ICD-10: R60.0 Active 04/30/2016 Unknown Cervicalgia ICD-9: 723.1 ICD-10: M54.2 Active 06/15/2017 Unknown Other muscle spasm ICD- 9: 728.85 ICD-10: M62.838 Active 06/15/2017 Unknown Laceration without f oreign body of other finger without damage to nail, initial encounter ICD-9: 883.0 ICD-10: S61.218A Active 04/01/2017 Unknown assisted (current) use of anticoagulants ICD-9: V58.61 ICD-10: Z79.01 Active 02/06/2016 Unknown Other fatigue ICD-9: 780.79 ICD-10: R53.83 Active 02/11/2016 Unknown Hypothyroidism, unsp ecified ICD-9: 244.9 ICD-10: E03.9 Active 02/11/2016 Unknown Other specified hypo thyroidism [...] Condition Codes Effectiv e Dates Condition Status Abnormal results of kidney function studies ICD-9: 794.4 ICD-10: R94.4 06/30/2018 Active Atrophy of thyroid ( acquired) ICD-9: 244.8 ICD-10: E03.4 02/09/2017 Active Chronic atrial fibri llation ICD-9: 427.31 ICD-10: I48.2 02/06/2016 Active Encounter for immuni zation ICD-9: V03.9 ICD-10: Z23 03/16/2017 Active Essential (primary) hypertension ICD-9: 401.9 ICD-10: I10 04/30/2016 Active Localized edema ICD-9: 782.3 ICD-10: R60.0 [...] fatigue ICD-9: 780.79 ICD-10: R53.83 02/11/2016 Active Hypothyroidism, unsp ecified ICD-9: 244.9 ICD-10: E03.9 02/11/2016 Active Other specified hypo thyroidism ICD-9: [...] Active HYPOTHYROIDISM ICD-9: 244.9 11/19/2014 Active 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 TAKE ON AN EMPTY STOMACH 02/02/2018 07/31/2018 Active Coumadin 4 mg tablet RxNorm: 597009 TAKE ONE TABLET BY MOUTH DAILY ON AND Wednesday10/14/2017 09/14/2018 Active nystatin 100,000 uni t/gram topical cream RxNorm: 149860 1 Application TOP TID 08/17/2017 No Stop Date Active triamcinolone aceton sreekanth 0.025 % topical cream RxNorm: 2365301 1 Application TOP BI D 08/17/2017 No Stop Date Active Voltaren 1 % topical gel RxNorm: 935708 2 Gram(s) TOP TID luiz ly to shoulder and neck 08/17/2017 No Stop Date Active levothyroxine 125 mc g tablet RxNorm: 817626 1 Tablet(s) UD 1 pill wed/wed/wed, 1/2 pill //wed/wed take ON AN EMPTY STOMACH 08/05/2017 02/01/2018 Inactive Coumadin 4 mg tablet RxNorm: 960234 1 Tablet(s) PO Wed/07/29/2017 10/13/2017 Inactive warfarin 5 mg tablet RxNorm: 236495 TAKE 1 AND 1/2 TABLETS BY MOUTH ON AND WEDNESDAY. TAKE ONLY 1 TABLET BY MOUTH ALL OTHER DAYS OF THE WEEK 07/12/2017 04/05/2018 In active furosemide 40 mg tablet RxNorm: 232225 Tablet(s) BID TAKE ONE TABLET BY MOUTH D AILY 06/15/2017 No Stop Date Active Voltaren 1 % topical gel RxNorm: 499634 2 Gram(s) TOP TID luiz ly to shoulder and neck 06/15/2017 08/16/2017 Inactive Keflex 500 mg capsule RxNorm: 101440 1 Capsule(s) PO TID 04/01/2017 04/07/2017 Inactive furosemide 40 mg tablet RxNorm: 964035 TAKE ONE TABLET BY MOUTH DAILY 03/18/2017 06/14/2017 In active Claritin-D 12 Hour 5 mg-120 mg tablet,extended release RxNorm: 9236935 1 Tablet(s) PO BID 03/16/2017 05/14/2017 Inactive Lipitor 20 mg tablet RxNorm: 318647 1 Tablet(s) PO daily 02/09/2017 03/10/2017 Inactive lisinopril 2.5 mg ta blet RxNorm: 114792 1 Tablet(s) PO daily 02/09/2017 03/10/2017 Inactive Nasonex 50 mcg/actua tion Norlina RxNorm: 5286638 1 Norlina NASAL BID 02/09/2017 09/06/2017 Inactive levothyroxine 125 mc g tablet RxNorm: 461413 1 Tablet(s) UD 1 pill wed/wed/wed, 1/2 pill //wed/sun take ON AN EMPTY STOMACH 02/09/2017 08/04/2017 Inactive fluorouracil 5 % top ical cream RxNorm: 418242 1 Application TOP BID 02/09/2017 02/18/2017 Inactive potassium chloride E R 20 mEq tablet,extended release RxNorm: 402235 Tablet(s) TAKE ONE TABLET BY MOUTH DAILY 02/08/2017 02/02/2018 Inactive warfarin 5 mg tablet RxNorm: 721666 TAKE 1 AND 1/2 TABLETS BY MOUTH ON AND WEDNESDAY. TAKE ONLY 1 TABLET BY MOUTH ALL OTHER DAYS OF THE WEEK 12/14/2016 05/30/2017 In active potassium chloride E R 20 mEq tablet,extended release RxNorm: 004681 TAKE ONE TABLET BY MOUTH DAILY 10/29/2016 01/26/2017 Inactive warfarin 5 mg tablet RxNorm: 904083 TAKE 1 AND 1/2 TABLETS BY MOUTH ON AND WEDNESDAY. TAKE ONLY 1 TABLET BY MOUTH ALL OTHER DAYS OF THE WEEK 10/27/2016 12/13/2016 In active nystatin 100,000 uni t/gram topical cream RxNorm: 607452 1 Application TOP TID 10/13/2016 08/16/2017 In active nitrofurantoin 50 mg capsule RxNorm: 133647 1 Capsule(s) PO BID 09/04/2016 09/03/2016 Inactive nitrofurantoin macro crystal 50 mg capsule RxNorm: 476181 1 Capsule(s) PO BID 09/04/2016 09/10/2016 In active Cipro 500 mg tablet RxNorm: 890260 1 Tablet(s) PO BID 08/26/2016 10/12/2016 Inactive Zyrtec 10 mg tablet RxNorm: 0066958 1 Tablet(s) PO daily 07/31/2016 08/29/2016 Inactive prednisone 20 mg tablet RxNorm: 253802 2 Tablet(s) PO daily 07/31/2016 08/02/2016 Inactive Kenalog 40 mg/mL zohra pension for injection RxNorm: 6993198 Milliliter(s) Inj 07/22/2016 07/22/2016 In active ceftriaxone 500 mg s olution for injection RxNorm: 4063506 Inj 07/22/2016 07/22/2016 Inactive Flonase Allergy Reli ef 50 mcg/actuation nasal spray,suspension RxNorm: 6142347 1 Norlina NASAL BID 07/22/2016 08/20/2016 Inactive azithromycin 250 mg tablet RxNorm: 963821 2 Tablet(s) PO on day #1, then 1 pill daily x 4 days 07/22/2016 10/12/2016 Inactive warfarin 5 mg tablet RxNorm: 189773 TAKE 1 AND 1/2 TABLETS BY MOUTH ON AND WEDNESDAY. TAKE ONLY 1 TABLET BY MOUTH ALL OTHER DAYS OF THE WEEK 07/09/2016 09/30/2016 In active levothyroxine 125 mc g tablet RxNorm: 887336 Tablet(s) TAKE ONE TA BLET BY MOUTH DAILY ON AN EMPTY STOMACH 06/23/2016 02/08/2017 Inactive levothyroxine 125 mc g tablet RxNorm: 086563 TAKE ONE TABLET BY MO UTH DAILY ON AN EMPTY STOMACH 06/23/2016 06/22/2016 Inactive levothyroxine 125 mc g tablet RxNorm: 277364 TAKE ONE TABLET BY MO UTH DAILY ON AN EMPTY STOMACH 06/23/2016 08/04/2017 Inactive cetirizine 10 mg tablet RxNorm: 5664709 TAKE ONE TABLET BY MOUTH DAILY 06/16/2016 10/13/2016 In active furosemide 40 mg tablet RxNorm: 896005 Tablet(s) TAKE ONE TABLET BY MOUTH DAILY 06/05/2016 12/01/2016 In active cetirizine 10 mg tablet RxNorm: 5856622 1 Tablet(s) PO daily 05/01/2016 05/30/2016 Inactive Levaquin 250 mg tablet RxNorm: 730531 Tablet(s) PO 2 pills day one and 1 pill day 2-7 04/06/2016 07/21/2016 Inactive warfarin 5 mg tablet RxNorm: 033031 Tablet(s) 1/2 TABLETS BY MOUTH ON AND WEDNESDAY. TAKE ONLY 1 TABLET BY MOUTH ALL OTHER DAYS OF THE WEEK 03/18/2016 07/07/2016 In active triamcinolone aceton sreekanth 0.025 % topical cream RxNorm: 0332345 1 Application TOP BI D 03/10/2016 08/16/2017 In active potassium chloride E R 20 mEq tablet,extended release RxNorm: 129570 1 Tablet(s) PO daily 03/04/2016 06/01/2016 Inactive Levaquin 250 mg tablet RxNorm: 381494 Tablet(s) PO 2 pills day one and 1 pill day 2-7 03/04/2016 04/05/2016 Inactive Levaquin 250 mg tablet RxNorm: 892703 Tablet(s) PO 2 pills day one and 1 pill day 2-7 03/03/2016 03/03/2016 Inactive potassium chloride E R 20 mEq tablet,extended release RxNorm: 085459 1 Tablet(s) PO daily 03/03/2016 03/03/2016 Inactive Cipro 500 mg tablet RxNorm: 531187 1 Tablet(s) PO BID 02/20/2016 07/21/2016 Inactive Cipro 500 mg tablet RxNorm: 973613 1 Tablet(s) PO BID 02/20/2016 02/19/2016 Inactive furosemide 40 mg tablet RxNorm: 170253 TAKE ONE TABLET BY MOUTH DAILY 01/27/2016 01/26/2016 In active warfarin 5 mg tablet RxNorm: 372018 TAKE 1 AND 1/2 TABLETS BY MOUTH ON AND WEDNESDAY. TAKE ONLY 1 TABLET BY MOUTH ALL OTHER DAYS OF THE WEEK 01/27/2016 01/26/2016 In active furosemide 40 mg tablet RxNorm: 838538 TAKE ONE TABLET BY MOUTH DAILY 01/27/2016 06/04/2016 In active warfarin 5 mg tablet RxNorm: 179236 TAKE 1 AND 1/2 TABLETS BY MOUTH ON AND WEDNESDAY. TAKE ONLY 1 TABLET BY MOUTH ALL OTHER DAYS OF THE WEEK 01/27/2016 03/17/2016 In active potassium chloride E R 20 mEq tablet,extended release RxNorm: 952588 1 Tablet(s) PO daily 11/20/2015 03/02/2016 Inactive furosemide 40 mg tablet RxNorm: 352103 TAKE ONE TABLET BY MOUTH DAILY 11/12/2015 01/26/2016 In active Zovirax 5 % topical cream RxNorm: 584977 TOP QID 0 09/24/2015 09/23/2015 Inactive Zovirax 5 % topical cream RxNorm: 235895 TOP QID 0 09/24/2015 11/19/2015 Inactive nystatin 100,000 uni t/gram topical cream RxNorm: 284091 1 Application TOP TID 09/17/2015 10/12/2016 In active warfarin 5 mg tablet RxNorm: 677738 TAKE 1 AND 1/2 TABLETS BY MOUTH ON AND WEDNESDAY. TAKE ONLY 1 TABLET BY MOUTH ALL OTHER DAYS OF THE WEEK 08/19/2015 01/05/2016 In active loratadine 10 mg tablet RxNorm: 620490 1 Tablet(s) PO daily 07/30/2015 07/23/2016 Inactive loratadine 10 mg tablet RxNorm: 427635 1 Tablet(s) PO daily 07/30/2015 07/29/2015 Inactive furosemide 40 mg tablet RxNorm: 516108 TAKE ONE TABLET BY MOUTH DAILY 06/24/2015 11/11/2015 In active levothyroxine 125 mc g tablet RxNorm: 765720 1 Tablet(s) PO daily 05/31/2015 05/24/2016 Inactive furosemide 40 mg tablet RxNorm: 701056 1 Tablet(s) PO daily 04/05/2015 06/23/2015 Inactive warfarin 5 mg tablet RxNorm: 841626 TAKE 1 AND 1/2 TABLETS BY MOUTH ON AND WEDNESDAY. TAKE ONLY 1 TABLET BY MOUTH ALL OTHER DAYS OF THE WEEK 02/12/2015 07/29/2015 In active Flonase Allergy Reli ef 50 mcg/actuation nasal spray,suspension RxNorm: 2 Norlina NASAL daily 02/05/2015 03/06/2015 Inactive Kenalog 40 mg/mL zohra pension for injection RxNorm: 5962616 Milliliter(s) Inj 02/05/2015 02/05/2015 In active warfarin 5 mg tablet RxNorm: 404935 Take 7.5mg (1 1/2 tablets) Wednesday and and 1 Tablet(s) PO (5mg) all other days 01/11/2015 02/09/2015 Inactive levothyroxine 125 mc g tablet RxNorm: 807763 1 Tablet(s) PO every other day 01/01/2015 05/30/2015 In active alternate with 150 levothyroxine 150 mc g tablet RxNorm: 692937 1 Tablet(s) PO every other day 01/01/2015 05/30/2015 In active alternate with 125 loratadine 10 mg tablet RxNorm: 973815 Tablet(s) PO as needed No Start Date Active Fish Oil 1,000 mg ca psule RxNorm: 1 Capsule(s) PO TID No Start Date Active magnesium 250 mg tablet RxNorm: 1 Tablet(s) PO daily No Start Date Active Vitamin D3 2,000 uni t tablet RxNorm: 884985 2 Tablet(s) PO daily No Start Date Active Fosamax 35 mg tablet RxNorm: 883209 1 Tablet(s) PO QW No Start Date Active levothyroxine 125 mc g tablet RxNorm: 648428 1 Tablet(s) PO daily No Start Date 12/31/2014 Inactive levothyroxine 150 mc g tablet RxNorm: 671105 1 Tablet(s) PO daily No Start Date 12/31/2014 Inactive diltiazem 60 mg tablet RxNorm: 581568 1 Tablet(s) PO QID No Start Date 03/23/2018 Inactive furosemide 40 mg tablet RxNorm: 714146 1 Tablet(s) PO daily No Start Date 04/04/2015 Inactive potassium chloride RxNorm: miscellaneous No Start Date 11/19/2015 Inactive Vitamin D2 oral RxNorm: 4018 oral No Start Date 05/31/2015 Inactive warfarin 5 mg tablet RxNorm: 290665 1 Tablet(s) PO daily No Start Date 01/10/2015 Inactive Coumadin 4 mg tablet RxNorm: 073452 1 Tablet(s) PO Wed/ No Start Date 07/28/2017 Inactive Medication Administered Medication Codes Instruc tions Start Date Status Kenalog 40 mg/mL suspension for injection RxNorm: 1913509 Milliliter 07/22/2016 No longer Active ceftriaxone 500 mg solution for injection RxNorm: 1628223 07/22/2016 No longer A ctive Kenalog 40 mg/mL suspension for injection RxNorm: 0659267 Milliliter 02/05/2015 No longer Active Immunizations Vaccine Codes Date Status Influenza CVX: 141 03/24 completed Pneumococcal (Adult) CVX: 33 03/24/2018 completed Influenza CVX: 141 03/16 completed Pneumococcal (Adult) CVX: 133 03/16/2017 completed Influenza CVX: 141 05/06 completed Influenza CVX: 141 04/28 completed Pneumococcal CVX: 33 06/1999 completed Assessments Condition Codes Effectiv e Dates Abnormal results of kidney function studies ICD-10: R94.4 ICD-9: 794.4 06/30/2018 Chronic atrial fibrillation ICD-10: I48.2 ICD-9: 427.31 03/24/2018 Atrophy of thyroid (acquired) ICD-10 : E03.4 ICD-9: 244.8 03/24/2018 Encounter for immunization ICD-10: Z 23 ICD-9: V03.9 03/24/2018 Essential (primary) hypertension ICD -10: I10 ICD-9: 401.9 03/24/2018 Localized edema ICD-10: R60.0 ICD-9: 782.3 09/30/2017 Cervicalgia ICD-10: M54.2 ICD-9: 723.1 06/15/2017 Other muscle spasm ICD-10: M62.838 ICD-9: 728.85 06/15/2017 Laceration without foreign body of other finger without damage to nail, initial encounter ICD-10: S61.218A ICD-9: 883.0 04/01/2017 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: Z79.01 ICD-9: V58.61 03/16/2017 Other fatigue ICD-10: R53.83 ICD-9: 780.79 02/09/2017 Hypothyroidism, unspecified ICD-10: E03.9 ICD-9: 244.9 01/25/2017 Tinea corporis ICD-10: B35.4 ICD-9: 110.5 10/13/2016 [...] Code Item Item Code Result Date Pt Aab5763 PT 18.5 seconds 07/08/2018 Pt Ici4560 INR 1.6 07/08/2018 Pt Jsv9534 Low Intensity - 1.5-2.0 07/08/2018 Pt Zzi3573 Mod intensity - 2.0-3.0 07/08/2018 Pt Gkn2629 Hi intensity - 3.0-4.0 07/08/2018 Pt Apg7287 PT 27.3 seconds 06/29/2018 Pt Eho8459 INR 2.6 06/29/2018 Pt Vav9615 Low Intensity - 1.5-2.0 06/29/2018 Pt Suc5372 Mod intensity - 2.0-3.0 06/29/2018 Pt Cyn9875 Hi intensity - 3.0-4.0 06/29/2018 Pt Sft8120 PT 24.0 seconds 05/26/2018 Pt Qjm2852 INR 2.2 05/26/2018 Pt Hdh3687 Low Intensity - 1.5-2.0 05/26/2018 Pt Rla5431 Mod intensity - 2.0-3.0 05/26/2018 Pt Cqd4264 Hi intensity - 3.0-4.0 05/26/2018 Tsh Ord6 [...] 29.6 pg 03/25/2018 Cbc With Differential Ord2 Rush% 9.5 % 03/25/2018 Cbc With Differential Ord2 [...] 2.19 K/ul 03/25/2018 Cbc With Differential Ord2 Rush ABS# 0.8 K/ul 03/25/2018 Cbc With Differential Ord2 Eos ABS# 0.3 K/ul 03/25/2018 Cbc With Differential Ord2 Baso ABS# 0.0 K/ul 03/25/2018 Lipid Ord30 CHOL 156 mg/dL 03/25/2018 Lipid Ord30 HDL 52.0 mg/dl 03/25/2018 Lipid Ord30 TRIG 98 mg/dL 03/25/2018 Lipid Ord30 LDL 84 mg/dL 03/25/2018 Lipid Ord30 C/HDL 3.0 Ratio 03/25/2018 Free T4 Cpa457 FREE T4 1.73 ng/dL 03/25/2018 Comp Metabolic Rpl263 NA 143 mEq/L 03/25/2018 Comp Metabolic Bye852 K 4.6 mEq/L 03/25/2018 Comp Metabolic Bll476 CL 108 mEq/L 03/25/2018 Comp Metabolic Aso536 CO2 26.0 mEq/L 03/25/2018 Comp Metabolic Cdu796 AN ION GAP 14 03/25/2018 Comp Metabolic Cru472 GL UCOSE 87 mg/dL 03/25/2018 Comp Metabolic Wlo636 Cr eat 1.2 mg/dL 03/25/2018 Comp Metabolic Isb564 eG FR 48 ml/min/1.73m2 03/25 Comp Metabolic Tod519 BUN 18 mg/dL 03/25/2018 Comp Metabolic Are911 B/ C Ratio 15.5 Ratio 03/25/2018 Comp Metabolic Xjh347 CA LCIUM 9.1 mg/dL 03/25/2018 Comp Metabolic Mjs920 AL K PHOS 58 U/L 03/25/2018 Comp Metabolic Dbt234 T(SGOT) 21 U/L 03/25/2018 Comp Metabolic Qnw515 AL T(SGPT) 13 U/L 03/25/2018 Comp Metabolic Gfc584 BI LI T 0.7 mg/dL 03/25/2018 Comp Metabolic Lzi704 AL BUMIN 3.2 g/dL 03/25/2018 Comp Metabolic Xly081 TP RO 5.5 g/dL 03/25/2018 Comp Metabolic Xar882 GL OB 2.3 g/dL 03/25/2018 Comp Metabolic Xod322 A/ G Ratio 1.4 Ratio 03/25/2018 Comp Metabolic Fqi015 Os mo 286 mOsmo 03/25/2018 Pt Fdu6867 PT 29.0 seconds 03/22/2018 Pt Zgo0451 INR 2.7 03/22/2018 Pt Oxz5985 Low Intensity - 1.5-2.0 03/22/2018 Pt Kvr2580 Mod intensity - 2.0-3.0 03/22/2018 Pt Hki9969 Hi intensity - 3.0-4.0 03/22/2018 Pt Hyp7633 PT 27.1 seconds 02/25/2018 Pt Xod6372 INR 2.5 02/25/2018 Pt Tgi1410 Low Intensity - 1.5-2.0 02/25/2018 Pt Hnv5138 Mod intensity - 2.0-3.0 02/25/2018 Pt Uer7807 Hi intensity - 3.0-4.0 02/25/2018 Pt Vbc5897 PT 26.1 seconds 01/26/2018 Pt Wym6428 INR 2.4 01/26/2018 Pt Bau8965 Low Intensity - 1.5-2.0 01/26/2018 Pt Cqt8138 Mod intensity - 2.0-3.0 01/26/2018 Pt Pjm3191 Hi intensity - 3.0-4.0 01/26/2018 Pt Zdi8732 PT 22.8 seconds 12/24/2017 Pt Out3613 INR 2.0 12/24/2017 Pt Ddt3067 Low Intensity - 1.5-2.0 12/24/2017 Pt Kcu9814 Mod intensity - 2.0-3.0 12/24/2017 Pt Vbl6906 Hi intensity - 3.0-4.0 12/24/2017 Pt Tso0611 PT 29.4 seconds 11/18/2017 Pt Xnn4488 INR 2.8 11/18/2017 Pt Sgt5621 Low Intensity - 1.5-2.0 11/18/2017 Pt Ive3942 Mod intensity - 2.0-3.0 11/18/2017 Pt Xeg1588 Hi intensity - 3.0-4.0 11/18/2017 Pt Zun3194 PT 26.6 seconds 09/13/2017 Pt Sxe0680 INR 2.4 09/13/2017 Pt Zfq4404 Low Intensity - 1.5-2.0 09/13/2017 Pt Edy1664 Mod intensity - 2.0-3.0 09/13/2017 Pt Cxt1714 Hi intensity - 3.0-4.0 09/13/2017 Pt Axi5186 PT 28.2 seconds 08/10/2017 Pt Vrh3677 INR 2.6 08/10/2017 Pt Iqv6648 Low Intensity - 1.5-2.0 08/10/2017 Pt Ggg0543 Mod intensity - 2.0-3.0 08/10/2017 Pt Jes7764 Hi intensity - 3.0-4.0 08/10/2017 Pt Tqf2662 PT 33.9 seconds 07/27/2017 Pt Smv5249 INR 3.3 07/27/2017 Pt Pll8329 Low Intensity - 1.5-2.0 07/27/2017 Pt Bmw4771 Mod intensity - 2.0-3.0 07/27/2017 Pt Lry0224 Hi intensity - 3.0-4.0 07/27/2017 Pt Nqb0322 PT 29.1 seconds 06/29/2017 Pt Rhc0898 INR 2.7 06/29/2017 Pt Tbp9626 Low Intensity - 1.5-2.0 06/29/2017 Pt Ysd7148 Mod intensity - 2.0-3.0 06/29/2017 Pt Yqs5611 Hi intensity - 3.0-4.0 06/29/2017 Pt Zqy8794 PT 30.3 seconds 06/11/2017 Pt Kpz8962 INR 2.9 06/11/2017 Pt Qzw3758 Low Intensity - 1.5-2.0 06/11/2017 Pt Lmj1250 Mod intensity - 2.0-3.0 06/11/2017 Pt Ika2601 Hi intensity - 3.0-4.0 06/11/2017 Pt Iig7755 PT 39.1 seconds 06/07/2017 Pt Zgy6770 INR 3.9 06/07/2017 Pt Itx3695 Low Intensity - 1.5-2.0 06/07/2017 Pt Tzd1274 Mod intensity - 2.0-3.0 06/07/2017 Pt Xjf4863 Hi intensity - 3.0-4.0 06/07/2017 Pt Ofl2921 PT 34.2 seconds 05/26/2017 Pt Jue0627 INR 3.3 05/26/2017 Pt Qfq1218 Low Intensity - 1.5-2.0 05/26/2017 Pt Jum5894 Mod intensity - 2.0-3.0 05/26/2017 Pt Cbg8649 Hi intensity - 3.0-4.0 05/26/2017 Comp Metabolic Fti053 NA 138 mEq/L 04/23/2017 Comp Metabolic Von901 K 4.2 mEq/L 04/23/2017 Comp Metabolic Dol060 CL 101 mEq/L 04/23/2017 Comp Metabolic Ome662 CO2 28.0 mEq/L 04/23/2017 Comp Metabolic Pmx526 AN ION GAP 13 04/23/2017 Comp Metabolic Rkk192 GL UCOSE 89 mg/dL 04/23/2017 Comp Metabolic Jeq830 Cr eat 1.1 mg/dL 04/23/2017 Comp Metabolic Evn547 eG FR 51 ml/min/1.73m2 04/23 Comp Metabolic Ntt267 BUN 26 mg/dL 04/23/2017 Comp Metabolic Upd774 B/ C Ratio 23.9 Ratio 04/23/2017 Comp Metabolic Zwp098 CA LCIUM 9.4 mg/dL 04/23/2017 Comp Metabolic Ckb604 AL K PHOS 95 U/L 04/23/2017 Comp Metabolic Rzw301 T(SGOT) 18 U/L 04/23/2017 Comp Metabolic Liq719 AL T(SGPT) 17 U/L 04/23/2017 Comp Metabolic Buh759 BI LI T 0.7 mg/dL 04/23/2017 Comp Metabolic Nio221 AL BUMIN 3.2 g/dL 04/23/2017 Comp Metabolic Ymt014 TP RO 5.6 g/dL 04/23/2017 Comp Metabolic Csy868 GL OB 2.4 g/dL 04/23/2017 Comp Metabolic Yag355 A/ G Ratio 1.3 Ratio 04/23/2017 Comp Metabolic Azv762 Os mo 280 mOsmo 04/23/2017 Pt Pig3160 PT 28.6 seconds 04/23/2017 Pt Yif3784 INR 2.7 04/23/2017 Pt Mrx9984 Low Intensity - 1.5-2.0 04/23/2017 Pt Vkv3457 Mod intensity - 2.0-3.0 04/23/2017 Pt Epm9133 Hi intensity - 3.0-4.0 04/23/2017 Pt Brq3281 PT 24.4 seconds 03/16/2017 Pt Tbo6012 INR 2.2 03/16/2017 Pt Ztt9558 Low Intensity - 1.5-2.0 03/16/2017 Pt Vyd5455 Mod intensity - 2.0-3.0 03/16/2017 Pt Ggj5223 Hi intensity - 3.0-4.0 03/16/2017 Pt Ewz0565 PT 28.2 seconds 02/24/2017 Pt Slk1983 INR 2.6 02/24/2017 Pt Red4722 Low Intensity - 1.5-2.0 02/24/2017 Pt Kma8325 Mod intensity - 2.0-3.0 02/24/2017 Pt Sfz1484 Hi intensity - 3.0-4.0 02/24/2017 Pt Mik1494 PT 26.8 seconds 02/08/2017 Pt Fbx0912 INR 2.5 02/08/2017 Pt Wop5472 Low Intensity - 1.5-2.0 02/08/2017 Pt Tvv8129 Mod intensity - 2.0-3.0 02/08/2017 Pt Dmb6042 Hi intensity - 3.0-4.0 02/08/2017 Lipid Ord30 CHOL 150 mg/dL 01/25/2017 Lipid Ord30 HDL 55.0 mg/dl 01/25/2017 Lipid Ord30 TRIG 66 mg/dL 01/25/2017 Lipid Ord30 LDL 82 mg/dL 01/25/2017 Lipid Ord30 C/HDL 2.7 Ratio 01/25/2017 Pt Ukr7944 PT 29.9 seconds 01/25/2017 Pt Udt9987 INR 2.8 01/25/2017 Pt Jov8411 Low Intensity - 1.5-2.0 01/25/2017 Pt Iti4951 Mod intensity - 2.0-3.0 01/25/2017 Pt Vfp2605 Hi intensity - 3.0-4.0 01/25/2017 Comp Metabolic Dar847 NA 143 mEq/L 01/25/2017 Comp Metabolic Dqp391 K 3.9 mEq/L 01/25/2017 Comp Metabolic Kkz493 CL 108 mEq/L 01/25/2017 Comp Metabolic Xpc639 CO2 23.0 mEq/L 01/25/2017 Comp Metabolic Nnk877 AN ION GAP 16 01/25/2017 Comp Metabolic Ips655 GL UCOSE 80 mg/dL 01/25/2017 Comp Metabolic Zvh987 Cr eat 1.0 mg/dL 01/25/2017 Comp Metabolic Lxa226 eG FR 57 ml/min/1.73m2 01/25 Comp Metabolic Eah668 BUN 25 mg/dL 01/25/2017 Comp Metabolic Gxb671 B/ C Ratio 25.0 Ratio 01/25/2017 Comp Metabolic Lyz365 CA LCIUM 8.5 mg/dL 01/25/2017 Comp Metabolic Gmf740 AL K PHOS 81 U/L 01/25/2017 Comp Metabolic Xyr035 T(SGOT) 19 U/L 01/25/2017 Comp Metabolic Jpb294 AL T(SGPT) 23 U/L 01/25/2017 Comp Metabolic Oys457 BI LI T 0.5 mg/dL 01/25/2017 Comp Metabolic Vnf366 AL BUMIN 2.9 g/dL 01/25/2017 Comp Metabolic Jgc280 TP RO 5.1 g/dL 01/25/2017 Comp Metabolic Qfc044 GL OB 2.2 g/dL 01/25/2017 Comp Metabolic Wpx120 A/ G Ratio 1.3 Ratio 01/25/2017 Comp Metabolic Lys838 Os mo 288 mOsmo 01/25/2017 Cbc With [...] 30.7 pg 01/25/2017 Cbc With Differential Ord2 Rush% 8.2 % 01/25/2017 Cbc With Differential Ord2 [...] 3.10 K/ul 01/25/2017 Cbc With Differential Ord2 Rush ABS# 0.8 K/ul 01/25/2017 Cbc With Differential Ord2 Eos ABS# 0.4 K/ul 01/25/2017 Cbc With Differential Ord2 Baso ABS# 0.1 K/ul 01/25/2017 Free T4 Uhf767 FREE T4 2.09 ng/dL 01/25/2017 Tsh Ord6 hTSH II 0.46 uIU/mL 01/25/2017 Pt Kbm2652 PT 26.1 seconds 11/26/2016 Pt Aiq4504 INR 2.6 11/26/2016 Pt Ijp5311 Low Intensity - 1.5-2.0 11/26/2016 Pt Sfm1209 Mod intensity - 2.0-3.0 11/26/2016 Pt Vdn3795 Hi intensity - 3.0-4.0 11/26/2016 Pt Rth5500 PT 26.2 seconds 10/29/2016 Pt Ghg1219 INR 2.6 10/29/2016 Pt Zld3386 Low Intensity - 1.5-2.0 10/29/2016 Pt Itt6478 Mod intensity - 2.0-3.0 10/29/2016 Pt Ano8980 Hi intensity - 3.0-4.0 10/29/2016 Pt Zed9361 PT 20.8 seconds 10/13/2016 Pt Klh9556 INR 1.9 10/13/2016 Pt Lpm2185 Low Intensity - 1.5-2.0 10/13/2016 Pt Bsf1017 Mod intensity - 2.0-3.0 10/13/2016 Pt Bfy4703 Hi intensity - 3.0-4.0 10/13/2016 Pt Eis8696 PT 26.5 seconds 10/01/2016 Pt Fvs1669 INR 2.6 10/01/2016 Pt Hla6429 Low Intensity - 1.5-2.0 10/01/2016 Pt Moi4803 Mod intensity - 2.0-3.0 10/01/2016 Pt Hum1490 Hi intensity - 3.0-4.0 10/01/2016 Pt Bmr6363 PT 24.6 seconds 09/14/2016 Pt Tqi2795 INR 2.4 09/14/2016 Pt Bmo7251 Low Intensity - 1.5-2.0 09/14/2016 Pt Jgt8690 Mod intensity - 2.0-3.0 09/14/2016 Pt Xiw4664 Hi intensity - 3.0-4.0 09/14/2016 Pt Zwg5817 PT 18.0 seconds 09/07/2016 Pt Mpv5845 INR 1.6 09/07/2016 Pt Jlt7670 Low Intensity - 1.5-2.0 09/07/2016 Pt Ydl9066 Mod intensity - 2.0-3.0 09/07/2016 Pt Ebh9286 Hi intensity - 3.0-4.0 09/07/2016 Pt Owm6799 PT 23.7 seconds 08/12/2016 Pt Hkg2528 INR 2.2 08/12/2016 Pt Kki4252 Low Intensity - 1.5-2.0 08/12/2016 Pt Pso8318 Mod intensity - 2.0-3.0 08/12/2016 Pt Tak0721 Hi intensity - 3.0-4.0 08/12/2016 Pt Qdr2674 PT 21.6 seconds 07/27/2016 Pt Yiv1356 INR 2.0 07/27/2016 Pt Kbi8432 Low Intensity - 1.5-2.0 07/27/2016 Pt Ylk9512 Mod intensity - 2.0-3.0 07/27/2016 Pt Yzl5257 Hi intensity - 3.0-4.0 07/27/2016 Pt Alw7127 PT 26.0 seconds 06/15/2016 Pt Lwd1265 INR 2.5 06/15/2016 Pt Rll7733 Low Intensity - 1.5-2.0 06/15/2016 Pt Lcx3760 Mod intensity - 2.0-3.0 06/15/2016 Pt Hji7809 Hi intensity - 3.0-4.0 06/15/2016 Pt Xvv1368 PT 18.8 seconds 06/01/2016 Pt Xes6753 INR 1.7 06/01/2016 Pt Qpc8589 Low Intensity - 1.5-2.0 06/01/2016 Pt Ecu2415 Mod intensity - 2.0-3.0 06/01/2016 Pt Vhe4465 Hi intensity - 3.0-4.0 06/01/2016 Pt Ste0833 PT 20.8 seconds 05/12/2016 Pt Onn3045 INR 1.9 05/12/2016 Pt Oty9081 Low Intensity - 1.5-2.0 05/12/2016 Pt Oss1506 Mod intensity - 2.0-3.0 05/12/2016 Pt Txj7201 Hi intensity - 3.0-4.0 05/12/2016 Pt Jug1466 PT 24.5 seconds 04/10/2016 Pt Yof9396 INR 2.4 04/10/2016 Pt Kju9819 Low Intensity - 1.5-2.0 04/10/2016 Pt Rmd5313 Mod intensity - 2.0-3.0 04/10/2016 Pt Onu2163 Hi intensity - 3.0-4.0 04/10/2016 Pt Xqi6618 PT 26.4 seconds 03/10/2016 Pt Wzj7364 INR 2.6 03/10/2016 Pt Ccl4127 Low Intensity - 1.5-2.0 03/10/2016 Pt Moa5177 Mod intensity - 2.0-3.0 03/10/2016 Pt Vdy1249 Hi intensity - 3.0-4.0 03/10/2016 Pt Xvf6443 PT 24.9 seconds 03/06/2016 Pt Ihb5790 INR 2.4 03/06/2016 Pt Cmy9897 Low Intensity - 1.5-2.0 03/06/2016 Pt Chx4565 Mod intensity - 2.0-3.0 03/06/2016 Pt Bue3338 Hi intensity - 3.0-4.0 03/06/2016 Pt Fiu2136 PT 21.9 seconds 02/25/2016 Pt Rjn2919 INR 2.0 02/25/2016 Pt Kpg2613 Low Intensity - 1.5-2.0 02/25/2016 Pt Gxs3530 Mod intensity - 2.0-3.0 02/25/2016 Pt Ufm2445 Hi intensity - 3.0-4.0 02/25/2016 Pt Oxs5219 PT 21.8 seconds 02/21/2016 Pt Kmf5305 INR 2.0 02/21/2016 Pt Sfn7222 Low Intensity - 1.5-2.0 02/21/2016 Pt Xrv1841 Mod intensity - 2.0-3.0 02/21/2016 Pt Gnz0917 Hi intensity - 3.0-4.0 02/21/2016 Culture Urine [id number] URI NE CULTURE SEE NOTES 02/20/2016 Culture Urine [id number] Con tinued Results 02/20/2016 Urine Culture Ucult [...] 91.8 fl 02/14/2016 Cbc With Differential Ord2 Rush% 9.3 % 02/14/2016 Cbc With Differential Ord2 [...] 2.55 K/ul 02/14/2016 Cbc With Differential Ord2 Rush ABS# 0.8 K/ul 02/14/2016 Cbc With Differential Ord2 Eos ABS# 0.4 K/ul 02/14/2016 Cbc With Differential Ord2 Baso ABS# 0.1 K/ul 02/14/2016 Tsh Ord6 hTSH II 0.80 uIU/mL 02/14/2016 Pt Gqy9582 PT 27.1 seconds 02/14/2016 Pt Emo5158 INR 2.7 02/14/2016 Pt Uct9775 Low Intensity - 1.5-2.0 02/14/2016 Pt Sad4614 Mod intensity - 2.0-3.0 02/14/2016 Pt Pxl9341 Hi intensity - 3.0-4.0 02/14/2016 Free T4 Vjk537 FREE T4 1.87 ng/dL 02/14/2016 Comp Metabolic Ftu305 NA 139 mEq/L 02/14/2016 Comp Metabolic Epx462 K 3.8 mEq/L 02/14/2016 Comp Metabolic Lmy464 CL 103 mEq/L 02/14/2016 Comp Metabolic Bbf361 CO2 27.0 mEq/L 02/14/2016 Comp Metabolic Yut065 AN ION GAP 13 02/14/2016 Comp Metabolic Jzn891 GL UCOSE 91 mg/dL 02/14/2016 Comp Metabolic Wdm626 Cr eat 1.0 mg/dL 02/14/2016 Comp Metabolic Zvz505 eG FR 58 ml/min/1.73m2 02/13 Comp Metabolic Tnf806 BUN 16 mg/dL 02/14/2016 Comp Metabolic Fkc949 B/ C Ratio 16.2 Ratio 02/14/2016 Comp Metabolic Bfr006 CA LCIUM 9.0 mg/dL 02/14/2016 Comp Metabolic Ntm855 AL K PHOS 88 U/L 02/14/2016 Comp Metabolic Fko150 T(SGOT) 17 U/L 02/14/2016 Comp Metabolic Gnc437 AL T(SGPT) 12 U/L 02/14/2016 Comp Metabolic Oxb514 BI LI T 0.6 mg/dL 02/14/2016 Comp Metabolic Lon492 AL BUMIN 3.2 g/dL 02/14/2016 Comp Metabolic Ezf801 TP RO 5.8 g/dL 02/14/2016 Comp Metabolic Exx790 GL OB 2.6 g/dL 02/14/2016 Comp Metabolic Ham218 A/ G Ratio 1.3 Ratio 02/14/2016 Comp Metabolic Esl162 Os mo 278 mOsmo 02/14/2016 Pt Vkn9878 PT 34.6 seconds 02/06/2016 Pt Dkc3943 INR 3.7 02/06/2016 Pt Ucs3133 Low Intensity - 1.5-2.0 02/06/2016 Pt Nju9158 Mod intensity - 2.0-3.0 02/06/2016 Pt Yqj9837 Hi intensity - 3.0-4.0 02/06/2016 Pt Pxb7920 PT 33.3 seconds 01/23/2016 Pt Oux7442 INR 3.5 01/23/2016 Pt Mgl8637 Low Intensity - 1.5-2.0 01/23/2016 Pt Rzk0918 Mod intensity - 2.0-3.0 01/23/2016 Pt Lhe9136 Hi intensity - 3.0-4.0 01/23/2016 Pt Seo7840 PT 30.5 seconds 12/31/2015 Pt Jgf8899 INR 3.2 12/31/2015 Pt Csz8566 Low Intensity - 1.5-2.0 12/31/2015 Pt Eet3113 Mod intensity - 2.0-3.0 12/31/2015 Pt Wan8459 Hi intensity - 3.0-4.0 12/31/2015 Pt Kyb6852 PT 35.6 seconds 12/25/2015 Pt Dpi9722 INR 3.9 12/25/2015 Pt Xng6856 Low Intensity - 1.5-2.0 12/25/2015 Pt Ose9694 Mod intensity - 2.0-3.0 12/25/2015 Pt Tea5921 Hi intensity - 3.0-4.0 12/25/2015 Pt Amv7497 PT 30.8 seconds 11/21/2015 Pt Fxk1760 INR 3.2 11/21/2015 Pt Hrk8774 Low Intensity - 1.5-2.0 11/21/2015 Pt Cbr8821 Mod intensity - 2.0-3.0 11/21/2015 Pt Brc0970 Hi intensity - 3.0-4.0 11/21/2015 Uric Acid [...] 30.0 pg 11/20/2015 Cbc With Differential Ord2 Rush% 8.1 % 11/20/2015 Cbc With Differential Ord2 [...] 2.51 K/ul 11/20/2015 Cbc With Differential Ord2 Rush ABS# 0.9 K/ul 11/20/2015 Cbc With Differential Ord2 Eos ABS# 0.3 K/ul 11/20/2015 Cbc With Differential Ord2 Baso ABS# 0.0 K/ul 11/20/2015 Comp Metabolic Zln562 NA 137 mEq/L 10/22/2015 Comp Metabolic Wwx826 K 3.9 mEq/L 10/22/2015 Comp Metabolic Dit710 CL 100 mEq/L 10/22/2015 Comp Metabolic Gwy837 CO2 31.0 mEq/L 10/22/2015 Comp Metabolic Zmq652 AN ION GAP 10 10/22/2015 Comp Metabolic Ycd870 GL UCOSE 94 mg/dL 10/22/2015 Comp Metabolic Cja311 Cr eat 1.0 mg/dL 10/22/2015 Comp Metabolic Bja564 eG FR 55 ml/min/1.73m2 10/21 Comp Metabolic Pkv070 BUN 19 mg/dL 10/22/2015 Comp Metabolic Bdi333 B/ C Ratio 18.3 Ratio 10/22/2015 Comp Metabolic Awh755 CA LCIUM 8.8 mg/dL 10/22/2015 Comp Metabolic Spn656 AL K PHOS 83 U/L 10/22/2015 Comp Metabolic Pbh476 T(SGOT) 15 U/L 10/22/2015 Comp Metabolic Vjw042 AL T(SGPT) 13 U/L 10/22/2015 Comp Metabolic Hns119 BI LI T 0.9 mg/dL 10/22/2015 Comp Metabolic Sun972 AL BUMIN 2.8 g/dL 10/22/2015 Comp Metabolic Zzu932 TP RO 5.4 g/dL 10/22/2015 Comp Metabolic Qsx217 GL OB 2.6 g/dL 10/22/2015 Comp Metabolic Nko372 A/ G Ratio 1.1 Ratio 10/22/2015 Comp Metabolic Ilk341 Os mo 276 mOsmo 10/22/2015 Bili D Ord93 BILI D 0.1 mg/dL 10/22/2015 Bili D Ord93 BILI I 0.8 mg/dL 10/22/2015 Pt Ujd4101 PT 22.8 seconds 10/22/2015 Pt Wiw3219 INR 2.1 10/22/2015 Pt Xms0983 Low Intensity - 1.5-2.0 10/22/2015 Pt Iqw0089 Mod intensity - 2.0-3.0 10/22/2015 Pt Mdu7315 Hi intensity - 3.0-4.0 10/22/2015 Pt Itm5487 PT 28.0 seconds 09/16/2015 Pt Hku5502 INR 2.7 09/16/2015 Pt Lal3046 Low Intensity - 1.5-2.0 09/16/2015 Pt Rjh1302 Mod intensity - 2.0-3.0 09/16/2015 Pt Fon4748 Hi intensity - 3.0-4.0 09/16/2015 Tsh Ord6 hTSH II 1.40 uIU/mL 09/16/2015 Free T4 Rag003 FREE T4 1.73 ng/dL 09/16/2015 Lipid Ord30 CHOL 169 mg/dL 09/16/2015 Lipid Ord30 HDL 66.0 mg/dl 09/16/2015 Lipid Ord30 TRIG 78 mg/dL 09/16/2015 Lipid Ord30 LDL 87 mg/dL 09/16/2015 Lipid Ord30 C/HDL 2.6 Ratio 09/16/2015 Pt Ezn2186 PT 26.6 seconds 08/21/2015 Pt Rks5652 INR 2.6 08/21/2015 Pt Udg4252 Low Intensity - 1.5-2.0 08/21/2015 Pt Rtc9641 Mod intensity - 2.0-3.0 08/21/2015 Pt Agc5690 Hi intensity - 3.0-4.0 08/21/2015 Comp Metabolic Jzp064 NA 141 mEq/L 08/08/2015 Comp Metabolic Swz126 K 3.3 mEq/L 08/08/2015 Comp Metabolic Dwn166 CL 102 mEq/L 08/08/2015 Comp Metabolic Tff793 CO2 31.0 mEq/L 08/08/2015 Comp Metabolic Xkl767 AN ION GAP 11 08/08/2015 Comp Metabolic Fzl509 GL UCOSE 83 mg/dL 08/08/2015 Comp Metabolic Grf276 Cr eat 1.0 mg/dL 08/08/2015 Comp Metabolic Dgd902 eG FR 55 ml/min/1.73m2 08/08 Comp Metabolic Pwi749 BUN 19 mg/dL 08/08/2015 Comp Metabolic Iyd490 B/ C Ratio 18.3 Ratio 08/08/2015 Comp Metabolic Pup415 CA LCIUM 8.9 mg/dL 08/08/2015 Comp Metabolic Xxk024 AL K PHOS 84 U/L 08/08/2015 Comp Metabolic Dis410 T(SGOT) 20 U/L 08/08/2015 Comp Metabolic Eia112 AL T(SGPT) 18 U/L 08/08/2015 Comp Metabolic Ged171 BI LI T 0.6 mg/dL 08/08/2015 Comp Metabolic Mrh874 AL BUMIN 3.3 g/dL 08/08/2015 Comp Metabolic Fwq762 TP RO 5.9 g/dL 08/08/2015 Comp Metabolic Rzf634 GL OB 2.6 g/dL 08/08/2015 Comp Metabolic Ckt695 A/ G Ratio 1.3 Ratio 08/08/2015 Comp Metabolic Bxw891 Os mo 283 mOsmo 08/08/2015 Cbc With [...] 30.0 pg 08/08/2015 Cbc With Differential Ord2 Rush% 8.2 % 08/08/2015 Cbc With Differential Ord2 [...] 2.90 K/ul 08/08/2015 Cbc With Differential Ord2 Rush ABS# 0.9 K/ul 08/08/2015 Cbc With Differential [...] Ord93 BILI I 0.5 mg/dL 08/08/2015 Pt Yge4594 PT 31.8 seconds 08/05/2015 Pt Tgt5657 INR 3.2 08/05/2015 Pt Iee4868 Low Intensity - 1.5-2.0 08/05/2015 Pt Cfg2881 Mod intensity - 2.0-3.0 08/05/2015 Pt Bdv4186 Hi intensity - 3.0-4.0 08/05/2015 Pt Lth0439 PT 27.4 seconds 06/27/2015 Pt Kgs1665 INR 2.6 06/27/2015 Pt Qdg3834 Low Intensity - 1.5-2.0 06/27/2015 Pt Eji0017 Mod intensity - 2.0-3.0 06/27/2015 Pt Bdb7007 Hi intensity - 3.0-4.0 06/27/2015 Tsh Ord6 [...] Ord2 RDW 15.1 % 05/31/2015 Free T4 Dnu731 FREE T4 1.89 ng/dL 05/31/2015 Comp Metabolic Tsg208 NA 140 mEq/L 05/31/2015 Comp Metabolic Vcv642 K 3.3 mEq/L 05/31/2015 Comp Metabolic Din106 CL 99 mEq/L 05/31/2015 Comp Metabolic Rii241 CO2 30.0 mEq/L 05/31/2015 Comp Metabolic Ber090 AN ION GAP 14 05/31/2015 Comp Metabolic Mak071 GL UCOSE 70 mg/dL 05/31/2015 Comp Metabolic Nis909 Cr eat 1.0 mg/dL 05/31/2015 Comp Metabolic Mdd349 eG FR 55 ml/min/1.73m2 05/31 Comp Metabolic Cfq303 BUN 23 mg/dL 05/31/2015 Comp Metabolic Tyt579 B/ C Ratio 22.1 Ratio 05/31/2015 Comp Metabolic Gbx203 CA LCIUM 8.9 mg/dL 05/31/2015 Comp Metabolic Tdh128 AL K PHOS 86 U/L 05/31/2015 Comp Metabolic Qxf641 T(SGOT) 28 U/L 05/31/2015 Comp Metabolic Kij635 AL T(SGPT) 30 U/L 05/31/2015 Comp Metabolic Gqa673 BI LI T 0.4 mg/dL 05/31/2015 Comp Metabolic Ouc548 AL BUMIN 3.3 g/dL 05/31/2015 Comp Metabolic Goo160 TP RO 6.0 g/dL 05/31/2015 Comp Metabolic Fsw472 GL OB 2.7 g/dL 05/31/2015 Comp Metabolic Ipk249 A/ G Ratio 1.2 Ratio 05/31/2015 Comp Metabolic Agp891 Os mo 282 mOsmo 05/31/2015 Pt Kis9118 PT 23.3 seconds 04/15/2015 Pt Tbi3222 INR 2.2 04/15/2015 Pt Kva2199 Low Intensity - 1.5-2.0 04/15/2015 Pt Ebz7307 Mod intensity - 2.0-3.0 04/15/2015 Pt Dju2100 Hi intensity - 3.0-4.0 04/15/2015 Pt Pbc9000 PT 19.5 seconds 04/04/2015 Pt Nqk3534 INR 1.7 04/04/2015 Pt Mif2065 Low Intensity - 1.5-2.0 04/04/2015 Pt Gnc9051 Mod intensity - 2.0-3.0 04/04/2015 Pt Avy4298 Hi intensity - 3.0-4.0 04/04/2015 Pt Fej3805 PT 39.8 seconds 04/01/2015 Pt Xmi2061 INR 4.3 04/01/2015 Pt Mrm0034 Low Intensity - 1.5-2.0 04/01/2015 Pt Otz0491 Mod intensity - 2.0-3.0 04/01/2015 Pt Pdm3355 Hi intensity - 3.0-4.0 04/01/2015 Metabolic Ord15 [...] Metabolic Ord15 CALCIUM 8.7 mg/dL 02/28/2015 Pt Uel0927 PT 31.4 seconds 02/28/2015 Pt Xuu8501 INR 3.2 02/28/2015 Pt Cws9468 Low Intensity - 1.5-2.0 02/28/2015 Pt Jhj0109 Mod intensity - 2.0-3.0 02/28/2015 Pt Lob9857 Hi intensity - 3.0-4.0 02/28/2015 Pt Zoi2467 PT 23.2 seconds 01/18/2015 Pt Ojw4172 INR 2.1 01/18/2015 Pt Pxd8139 Low Intensity - 1.5-2.0 01/18/2015 Pt Tfa6542 Mod intensity - 2.0-3.0 01/18/2015 Pt Ldr0834 Hi intensity - 3.0-4.0 01/18/2015 Pt Uob9809 PT 18.2 seconds 01/10/2015 Pt Utp3320 INR 1.6 01/10/2015 Pt Rue2830 Low Intensity - 1.5-2.0 01/10/2015 Pt Fvc7951 Mod intensity - 2.0-3.0 01/10/2015 Pt Ste5164 Hi intensity - 3.0-4.0 01/10/2015 Review of [...] rhythm 07/31/2016 None Full Exam - General [facility] Constitutional general appearance Overall: well developed 05/01/2016 [...] 03/24/2018 ADMIN PNEUMOCOCCAL V ACCINE SNOMED CT: 80614879 CPT-4: G0009 03/24/2018 FLU VACC PRSV FREE I NC ANTIG Formatting Model/CDA Sections, Assigned to/Dorothea Tan CPT-4: 84363Uvdvcxr 03/24/2018 Pneumococcal Polysac charide Vaccine, 23-Valent, Ad CPT-4: 67992 03/24/2018 TRIAMCINOLONE ACET I [place] NOS CPT-4: J3301 06/15/2017 THER/PROPH/DIAG INJ SC/IM CPT-4: 52331 06/15/2017 ADMIN PNEUMOCOCCAL V ACCINE SNOMED CT: 75021179 CPT-4: G0009 03/16/2017 ADMIN INFLUENZA VIRU S VAC CPT-4: G0008 03/16/2017 FLU VAC NO PRSV 4 VA L 3 YRS+ CPT-4: 11437 03/16/2017 PNEUMOCOCCAL VACC [address]: 68165536 CPT-4: 55220 03/16/2017 URINALYSIS NONAUTO W /O SCOPE CPT-4: 35542 08/26/2016 THER/PROPH/DIAG INJ SC/IM CPT-4: 51392 07/22/2016 TRIAMCINOLONE ACET I [place] NOS CPT-4: J3301 07/22/2016 ROCEPHIN, PER 250 MG CPT-4: J0696 07/22/2016 TRIAMCINOLONE ACET I [place] NOS CPT-4: J3301 02/05/2015 Vital Signs Date Vital 03/24/2018 Blood Pressure 1: 130/72 Code: 8480-6 BMI: 33.4 Code: 17854-7 Heart Rate 1: 82 bpm Height: 5'7" SpO2: 93% Weight: 213 lbs 11/18/2017 Blood Pressure 1: 128/70 Code: 8480-6 BMI: 33.6 Code: 77826-2 Heart Rate 1: 98 bpm Height: 5'7" SpO2: 97% Weight: 214 lbs 8 oz 09/30/2017 Blood Pressure 1: 100/50 Code: 8480-6 BMI: 34.0 Code: 48414-6 Heart Rate 1: 66 bpm Height: 5'7" SpO2: 96% Weight: 217 lbs 08/17/2017 Blood Pressure 1: 104/60 Code: 8480-6 BMI: 33.7 Code: 76312-3 Heart Rate 1: 99 bpm Height: 5'7" SpO2: 97% Weight: 215 lbs 06/15/2017 Blood Pressure 1: 120/64 Code: 8480-6 BMI: 33.5 Code: 44606-6 Heart Rate 1: 91 bpm Height: 5'7" SpO2: 94% Weight: 214 lbs 04/01/2017 Blood Pressure 1: 110/68 Code: 8480-6 BMI: 154.4 Code: 67721-6 Heart Rate 1: 66 bpm Height: 2'7" SpO2: 95% Weight: 211 lbs 03/16/2017 Blood Pressure 1: 130/72 Code: 8480-6 BMI: 33.0 Code: 47104-1 Heart Rate 1: 95 bpm Height: 5'7" SpO2: 97% Weight: 211 lbs 02/09/2017 Blood Pressure 1: 120/70 Code: 8480-6 BMI: 32.9 Code: 54103-6 Heart Rate 1: 78 bpm Height: 5'7" SpO2: 96% Weight: 210 lbs 10/13/2016 Blood Pressure 1: 118/76 Code: 8480-6 BMI: 32.6 Code: 89130-6 Heart Rate 1: 97 bpm Height: 5'7" SpO2: 98% Weight: 208 lbs 07/31/2016 Blood Pressure 1: 110/64 Code: 8480-6 BMI: 32.1 Code: 64193-8 Heart Rate 1: 79 bpm Height: 5'7" SpO2: 94% Weight: 205 lbs 07/22/2016 Blood Pressure 1: 108/74 Code: 8480-6 BMI: 32.1 Code: 44832-8 Heart Rate 1: 71 bpm Height: 5'7" SpO2: 97% Temperature: 36.9 (C ) / 98.4 (F) Weight: 205 lbs 05/01/2016 Blood Pressure 1: 120/72 Code: 8480-6 BMI: 32.7 Code: 56235-7 Heart Rate 1: 75 bpm Height: 5'7" SpO2: 94% Weight: 209 lbs 04/06/2016 Blood Pressure 1: 106/62 Code: 8480-6 BMI: 32.7 Code: 25026-8 Heart Rate 1: 83 bpm Height: 5'7" SpO2: 97% Weight: 209 lbs 03/06/2016 Blood Pressure 1: 112/68 Code: 8480-6 BMI: 32.7 Code: 34920-0 Heart Rate 1: 90 bpm Height: 5'7" SpO2: 97% Weight: 209 lbs 03/03/2016 Blood Pressure 1: 120/62 Code: 8480-6 BMI: 32.7 Code: 70675-1 Heart Rate 1: 92 bpm Height: 5'7" SpO2: 98% Weight: 209 lbs 02/07/2016 Blood Pressure 1: 110/64 Code: 8480-6 BMI: 32.7 Code: 78626-5 Heart Rate 1: 87 bpm Height: 5'7" SpO2: 97% Weight: 209 lbs 12/13/2015 Blood Pressure 1: 110/64 Code: 8480-6 BMI: 33.5 Code: 70566-2 Heart Rate 1: 90 bpm Height: 5'7" SpO2: 97% Weight: 214 lbs 12/03/2015 Blood Pressure 1: 132/76 Code: 8480-6 BMI: 33.4 Code: 42243-8 Heart Rate 1: 82 bpm Height: 5'7" SpO2: 99% Weight: 213 lbs 11/20/2015 Blood Pressure 1: 108/68 Code: 8480-6 BMI: 32.4 Code: 01055-7 Heart Rate 1: 77 bpm Height: 5'7" SpO2: 97% Weight: 207 lbs 09/17/2015 Blood Pressure 1: 122/76 Code: 8480-6 BMI: 33.0 Code: 34612-2 Heart Rate 1: 91 bpm Height: 5'7" SpO2: 97% Weight: 211 lbs 05/31/2015 Blood Pressure 1: 128/82 Code: 8480-6 BMI: 33.4 Code: 24302-3 Heart Rate 1: 98 bpm Height: 5'7" SpO2: 99% Weight: 213 lbs 02/05/2015 Blood Pressure 1: 128/80 Code: 8480-6 BMI: 32.6 Code: 79603-8 Heart Rate 1: 86 bpm Height: 5'7" SpO2: 97% Weight: 208 lbs 11/20/2014 Blood Pressure 1: 128/90 Code: 8480-6 BMI: 30.9 Code: 00448-1 Heart Rate 1: 94 bpm Height: 5'7" [...] Findings Denies fever 05/31/2015 None 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 P ATIENT, LEVEL IV Diagnosis: Essential (primary) hypertension[ICD10: I10] Diagnosis: Atrophy of thyroid (acquired)[ICD10: E03.4] Diagnosis: Chronic atrial fibrillation[ICD10: I48.2] Valerie Pisano MD, [facility] CPT-4: 98382 03/24/2018 ([id number]) 83688 EST. P ATIENT, LEVEL IV Diagnosis: Essential (primary) hypertension[ICD10: I10] Diagnosis: Atrophy of thyroid (acquired)[ICD10: E03.4] Diagnosis: Chronic atrial fibrillation[ICD10: I48.2] Valerie Pisano MD, [facility] CPT-4: 56243 11/18/2017 43078 EST. PATIENT, LEVEL IV Diagnosis: Localized edema[ICD10: R60.0] Roxie Pisano MD, [facility] CPT-4: 46885 09/30/2017 ([id number]) 69085 EST. P ATIENT, LEVEL III Diagnosis: Essential (primary) hypertension[ICD10: I10] Valerie Pisano MD, C CPT-4: 47487 08/17/2017 ([id number]) 64002 EST. P ATIENT, LEVEL IV Diagnosis: Essential (primary) hypertension[ICD10: I10] Diagnosis: Atrophy of thyroid (acquired)[ICD10: E03.4] Diagnosis: Chronic atrial fibrillation[ICD10: I48.2] Diagnosis: Cervicalgia[ICD10: M54.2] Diagnosis: Other muscle spasm[ICD10: M62.838] Valerie Pisano MD, [facility] CPT- 4: 29385 06/15/2017 74669 EST. PATIENT, LEVEL III Diagnosis: Laceration without foreign body of other finger without damage to nail, initial encounter[ICD10: S61.218A] Roxie Pisano MD, [facility] CPT-4: 22609 04/01/2017 ([id number]) 15202 EST. P ATIENT, LEVEL IV Diagnosis: Chronic atrial fibrillation[ICD10: I48.2] Diagnosis: assisted (current) use of anticoagulants[ICD10: Z79.01] Diagnosis: Encounter for immunization[ICD10: Z23] Diagnosis: Atrophy of thyroid (acquired)[ICD10: E03.4] Valerie Pisano MD, [facility] CPT-4: 52514 03/16/2017 ([id number]) 48871 EST. P ATIENT, LEVEL IV Diagnosis: Chronic atrial fibrillation[ICD10: I48.2] Diagnosis: Essential (primary) hypertension[ICD10: I10] Diagnosis: Other fatigue[ICD10: R53.83] Diagnosis: assisted (current) use of anticoagulants[ICD10: Z79.01] Diagnosis: Atrophy of thyroid (acquired)[ICD10: E03.4] Valerie Pisano MD, C CPT-4: 02450 02/09/2017 ([id number]) 62274 EST. P ATIENT, LEVEL IV Diagnosis: Essential (primary) hypertension[ICD10: I10] Diagnosis: Chronic atrial fibrillation[ICD10: I48.2] Diagnosis: Tinea corporis[ICD10: B35.4] Diagnosis: assisted (current) use of anticoagulants[ICD10: Z79.01] Diagnosis: Other skin changes[ICD10: R23.8] Valerie Pisano MD, [facility] CPT-4: 21318 10/13/2016 82722 EST. PATIENT, LEVEL III Diagnosis: Other acute sinusitis[ICD10: J01.80] Diagnosis: Other allergic rhinitis[ICD10: J30.89] Roxie Pisano MD, [facility] CPT-4: 66722 07/31/2016 ([id number]) 40105 EST. P ATIENT, LEVEL III Diagnosis: Acute recurrent maxillary sinusitis[ICD10: J01.01] Valerie Pisano MD, C CPT-4: 42279 07/22/2016 30043 EST. PATIENT, LEVEL IV Diagnosis: Essential (primary) hypertension[ICD10: I10] Diagnosis: Other allergic rhinitis[ICD10: J30.89] Diagnosis: Localized edema[ICD10: R60.0] Roxie Pisano MD, [facility] CPT-4: 22735 05/01/2016 95456 EST. PATIENT, LEVEL III Diagnosis: Cellulitis of left lower limb[ICD10: L03.116] Diagnosis: Localized edema[ICD10: R60.0] Roxie Pisano MD, [facility] CPT-4: 96986 04/06/2016 ([id number]) Miscellaneou s no charge Diagnosis: Cellulitis of left lower limb[ICD10: L03.116] Diagnosis: Localized edema[ICD10: R60.0] Roxie Pisano MD, [facility] CPT-4: 28925 03/10/2016 ([id number]) Miscellaneou s no charge Diagnosis: Cellulitis of left lower limb[ICD10: L03.116] Roxie Pisano MD, [facility] CPT-4: 15319 03/06/2016 05408 EST. PATIENT, LEVEL IV Diagnosis: Cellulitis of left lower limb[ICD10: L03.116] Diagnosis: Localized edema[ICD10: R60.0] Roxie Pisano MD, [facility] CPT-4: 38610 03/03/2016 ([id number]) 70387 EST. 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 P ATIENT, LEVEL III Diagnosis: Iliotibial band syndrome, right leg[ICD10: M76.31] Diagnosis: Localized edema[ICD10: R60.0] Brielle Pisano MD, [facility] CPT- 4: 40158 12/13/2015 ([id number]) 29244 EST. P ATIENT, LEVEL III Diagnosis: Localized edema[ICD10: R60.0] Diagnosis: Essential (primary) hypertension[ICD10: I10] Brielle Pisano MD, [facility] CPT-4: 67469 12/03/2015 ([id number]) 20935 EST. 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 PATIENT, LEVEL IV Diagnosis: Essential (primary) hypertension[ICD10: I10] Diagnosis: assisted (current) use of anticoagulants[ICD10: Z79.01] Diagnosis: Muscle spasm of back[ICD10: M62.830] Roxie Pisano MD, [facility] CPT- 4: 97302 09/17/2015 ([id number]) 64592 EST. P ATIENT, LEVEL IV Diagnosis: Localized edema[ICD10: R60.0] Diagnosis: Other specified hypothyroidism[ICD10: E03.8] Diagnosis: Essential (primary) hypertension[ICD10: I10] Brielle Pisano MD, [facility] CPT-4: 58465 05/31/2015 ([id number]) 43218 EST. P ATIENT, LEVEL III Diagnosis: ALLERGIC RHINITIS[ICD9: 477.9] Diagnosis: ESSENTIAL HYPERTENSION[ICD9: 401.9] Brielle Pisano MD, [facility] CPT-4: 73253 02/05/2015 ([id number]) OFFICE VISI T, NEW - LEVEL 4 Diagnosis: ESSENTIAL HYPERTENSION[ICD9: 401.9] Diagnosis: HYPOTHYROIDISM[ICD9: 244.9] Diagnosis: ACTINIC KERATOSIS[ICD9: 702.0] Valerie Pisano MD, [facility] CPT-4: 92317 11/20/2014 Plan of Care Planned Activity Notes C odes Status Date Patient Education: Patient Medication Summary Completed 06/30/2018 [...] given today. 03/24/2018 Appointment: Valerie Pisano WPtel: [address] [place], [place] [id number] (15 min) Moderate 03/24/2018 Patient Education: Patient [...] control. 11/18/2017 Appointment: Valerie Pisano WPtel: [phone] (15 min) Moderate 11/18/2017 Patient Education: Patient Medication Summary Completed 11/18/2017 Referral: [facility] WPtel: [address] [place] [address] Pt notified at appointment Appointment Confirmed 10/01/2017 [...] Boots 09/30/2017 Appointment: Roxie Cazares WPtel: [phone] [facility] (30 min) Complex 09/30/2017 Patient Education: Patient Medication Summary Completed 09/30/2017 Care Plan: Referral Order SNOMED-CT : [id number] Pending 09/30/2017 Visit Plan: Hypertension - well [...] time. 08/17/2017 Appointment: [phone] [place] (15 min) Moderate 08/17/2017 Patient [...] neck muscles. allergies - kenalog 40mg im nGame squibb - lot # [id number] expires september 2018 06/15/2017 Visit Plan: Hypertension [...] muscles. 06/15/2017 Appointment: [phone] [facility] [place] (15 min) Moderate 06/15/2017 Patient Education: Patient Medication Summary Completed 06/15/2017 Care Plan: Referral Order SNOMED-CT : [id number] Pending 06/15/2017 Appointment: Nurse Visit 04/05/2017 Appointment: [...] booster. 04/01/2017 Appointment: Roxie Cazares WPtel: [phone] [facility] (15 min) Moderate 04/01/2017 Patient [...] shot today 03/16/2017 Appointment: Valerie Pisano WPtel: [facility] (15 min) Moderate 03/16/2017 Patient Education: [...] allergy spray. 02/09/2017 Appointment: [phone] [facility] (15 min) Moderate 02/09/2017 Patient Education: [...] nystatin 10/13/2016 Appointment: [phone] [facility] (15 min) Moderate 10/13/2016 Patient Education: Patient Medication Summary Completed 10/13/2016 Patient Education: Obesity Completed 10/13/2016 Patient Education: Hypertension Completed 10/13/2016 Care Plan: Urine Culture Pending 08/31/2016 Appointment: Roxie Cazares WPtel: [phone] [facility] Lab Draw 08/27/2016 Appointment: Nurse Visit [...] spray. 07/31/2016 Appointment: Brielle Cavazos WPtel: [phone] [phone] (30 min) Complex 07/31/2016 Patient Education: Patient Medication Summary Completed 07/31/2016 Patient Education: Obesity Completed 07/31/2016 Visit Plan: Sinusitis - Pt has acut e infection - pain in face, maxillary region, Pt informed to use decongestant, RX given to patient, sinus rinses also recommended. Call if symptoms do not show improvement. 07/22/2016 App[facility]ment[phone] (15 min) Moderate 07/22/2016 Patient Education: [...] edema. 05/01/2016 Appointment: Brielle Cavazos WPtel: [phone] [phone] (30 min) Complex 05/01/2016 Patient Education: [...] peripheral edema. 04/06/2016 Appointment: Roxie Cazares WPtel: [phone] (30 min) Complex 04/06/2016 Patient Education: Patient Medication Summary Completed 04/06/2016 Patient Education: Obesity Completed 04/06/2016 Visit Plan: left foot - improved - pt finished with antibiotics - continue to monitor - notify clinic with any concerns. Repeat INR today. 03/10/2016 Appointment: Brielle Cavazos WPtel: [phone] [phone] (30 min) Complex 03/10/2016 Patient Education: Patient Medication Summary Completed 03/10/2016 Visit Plan: Cellulitis - continue w ith oral antibiotics as previously directed, return to clinic as previously directed, call for acute change in symptoms, worsening redness, warmth, discharge. 03/06/2016 Appointment: Brielle Cavazos WPtel: [address] [place], [place] [phone] (15 min) Moderate 03/06/2016 Patient Education: Patient Medication Summary Completed 03/06/2016 Patient Education: Obesity Completed 03/06/2016 Visit Plan: Cellulitis - continue w ith oral antibiotics as previously directed, return to clinic as previously directed, call for acute change in symptoms, worsening redness, warmth, discharge. 03/03/2016 Appointment: Brielle Cavazos WPtel: [phone] (15 min) Moderate 03/03/2016 Patient Education: [...] and 3.5. 02/07/2016 Appointment: Brielle Cavazos WPtel: [phone] (30 min) Complex 02/07/2016 Patient Education: Patient Medication Summary Completed 02/07/2016 Patient Education: Obesity Completed 02/07/2016 Patient Education: Hypertension Completed 02/07/2016 Appointment: Brielle Cavazos WPtel: [phone] (30 min) Complex 02/04/2016 Visit Plan: [...] Appointment: Brielle Cavazos WPtel: [phone] (15 min) Moderate 12/13/2015 Patient Education: [...] Appointment: Brielle Cavazos WPtel: [phone] (30 min) Complex 12/03/2015 Patient Education: [...] Hypertension Completed 02/05/2015 Appointment: Valerie Pisano WPtel: [phone] (15 min) Moderate 01/29/2015 Visit Plan: Hypertension [...] of control. 11/20/2014 Appointment: Valerie Pisano WPtel: [phone] [place] New Patient 11/20/2014 Patient Education: Patient Medication Summary Completed 11/20/2014 Patient Education: Hypertension Completed 11/20/2014 Patient Education: Patient Medication Summary Completed 10/19/2014 Referral: [facility] WPtel: Referral Appointment Requested Referral: [facility] WPtel: [address] [place] [place] [id number] Referral Appointment Confirmed Instructions Comment . Sinusitis [...] to further attempt to reduce peripheral edema. 1 pill wed/wed/wed, 1/2 pill //sat/sun take [...] of control. get blood work one w diomede before next appt - fasting labs Decrease [...] im bristol myeres squibb - lot # [id number] expires september 2018 . Hypertension - wel [...] continue with supportive care at this time. newton cabello or david while on the [...] Kenalog injection today in the office. . Laceration of left index finger approximately [...]
--- OUTSIDE RECORDS SUMMARY | 2019-09-12 12:05 | XMS REPORT | Continuity of Care Document ---
Author Organization Unknown Address Unknown Phone Unavailable Allergies Active Description Code Type Severity Reaction Onset Reported/Identified Relationship to Patient Clinical Status Yes Sulfa (Sulfonamide Antibiotics) [id number] Drug Allergy Unknown N/A 016 Yes Sulfa (Sulfonamide Antibiotics) [id number] 0491 Drug Allergy Mild RASH 9 Medications There is no data. Problems Date Dx Coded Attending Type Code Diagnosis Diagnosed By 11/27/2009 Ot 427.31 08/28/2011 Ot V43.65 KNE E JOINT REPLACEMENT STATUS 08/28/2011 Ot V54.81 AFT ERCARE FOLLOWING JOINT REPLACEMENT 08/28/2011 Ot V57.1 PHYS ICAL THERAPY NEC 05/30/2012 Ot V43.65 KNE E JOINT REPLACEMENT STATUS 05/30/2012 Ot V54.81 AFT ERCARE FOLLOWING JOINT REPLACEMENT 05/30/2012 Ot V57.1 PHYS ICAL THERAPY NEC 09/08/2013 NOREEN SOLIZ, SUZI Krueger Ot 535. 51 UNSPEC GASTRITIS GASTRODUODENITIS, W/ 09/13/2013 NICHOLAS SOLIZ, VALENTINE Castro Ot 327.23 OBSTRUCTIVE SLEEP APNEA (ADULT) (PEDIATR 09/13/2013 NICHOLAS SOLIZ, VALENTINE Castro Ot 401.9 HYPERTENSION NOS 09/13/2013 VALENTINE PETERSON MD Ot 786.09 RESPIRATORY ABNORM NEC 11/09/2013 IGOR CULP APRN Ot 327.23 OBSTRUCTIVE SLEEP APNEA (ADULT) (PEDIATR 08/06/2014 MEHRAN MARQUEZ Ot 733.90 08/06/2014 MEHRAN MARQUEZ Ot V10.3 10/02/2014 Ot 174.9 10/02/2014 Ot V76.11 10/02/2014 Ot 174.9 10/02/2014 Ot 733.90 10/02/2014 Ot 611.89 10/02/2014 Ot 174.9 10/02/2014 Ot 174.9 10/02/2014 Ot 427.31 10/02/2014 Ot 733.90 10/02/2014 Ot V10.3 10/02/2014 Ot V58.61 10/02/2014 Ot V58.69 10/02/2014 Ot V67.1 10/02/2014 Ot 174.9 10/02/2014 Ot V76.11 10/02/2014 Ot 621.2 10/02/2014 Ot 627.1 10/02/2014 Ot 793.5 10/02/2014 Ot 174.9 10/02/2014 Ot 427.31 10/02/2014 Ot 733.90 10/02/2014 Ot V15.3 10/02/2014 Ot V58.61 10/02/2014 Ot V58.69 10/02/2014 Ot 397.0 10/02/2014 Ot 401.9 10/02/2014 Ot 416.8 10/02/2014 Ot 424.0 10/02/2014 Ot 427.31 10/02/2014 Ot 786.09 10/02/2014 Ot V58.61 10/02/2014 Ot V58.83 10/02/2014 Ot V43.65 10/02/2014 Ot V58.61 10/02/2014 Ot V58.83 10/02/2014 Ot 793.89 10/02/2014 Ot V10.3 10/02/2014 Ot V76.11 10/02/2014 Ot 174.9 10/02/2014 Ot 174.9 10/02/2014 Ot 174.9 10/02/2014 Ot V67.9 10/02/2014 Ot 401.9 10/02/2014 Ot 424.0 10/02/2014 Ot 427.31 10/02/2014 Ot 782.3 10/02/2014 Ot 174.9 10/02/2014 Ot 733.90 10/02/2014 Ot V58.61 10/02/2014 Ot V58.83 10/02/2014 Ot 427.31 10/02/2014 Ot 733.90 10/02/2014 Ot V10.3 10/02/2014 Ot V58.61 10/02/2014 Ot V58.69 10/02/2014 Ot V67.1 10/02/2014 Ot 427.31 10/02/2014 Ot V10.3 10/02/2014 YESENIA WILDE Ot 427.31 10/02/2014 YESENIA WILDE Ot 733.90 10/02/2014 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 Ot V10.3 10/02/2014 WILDEYESENIA Toams PROFILE MILL OPERATOR TAPE CONTROL Ot V58.61 10/02/2014 WILDEYESENIA Tomas S PROFILE MILL OPERATOR TAPE CONTROL Ot V58.69 10/02/2014 WILDEYESENIA Tomas S PROFILE MILL OPERATOR TAPE CONTROL Ot V67.1 10/02/2014 RIVERAKAROLINE WAGGONER A PROFILE MILL OPERATOR TAPE CONTROL Ot 244.9 10/02/2014 RIVERAKAROLINE A PROFILE MILL OPERATOR TAPE CONTROL Ot 397.0 10/02/2014 RIVERAKAROLINE A PROFILE MILL OPERATOR TAPE CONTROL Ot 401.9 10/02/2014 RIVERAKAROLINE A PROFILE MILL OPERATOR TAPE CONTROL Ot 416.8 10/02/2014 RIVERA KAROLINE A PROFILE MILL OPERATOR TAPE CONTROL Ot 424.0 10/02/2014 RIVERAKAROLINE A PROFILE MILL OPERATOR TAPE CONTROL Ot 427.31 10/02/2014 RIVERAKAROLINE A PROFILE MILL OPERATOR TAPE CONTROL Ot 780.4 10/02/2014 RIVERAKAROLINE A PROFILE MILL OPERATOR TAPE CONTROL Ot 780.79 10/02/2014 RIVERAKAROLINE WAGGONER A PROFILE MILL OPERATOR TAPE CONTROL Ot V58.69 10/02/2014 NICHOLAS SOLIZ, VALENTINE Castro Ot 427.31 10/02/2014 WILDEYESENIA Tomas PROFILE MILL OPERATOR TAPE CONTROL Ot 174.9 10/02/2014 NOREEN SOLIZ, SUZI Krueger Ot V72. 84 10/02/2014 MEHRAN MARQUEZ Ot 174.9 10/02/2014 JIMMYMEHRAN MATA Ot 733.90 10/02/2014 MEHRAN MARQUEZ N Ot V10.3 10/04/2014 NICHOLAS SOLIZ, VALENTINE M Ot 719.45 10/04/2014 NICHOLAS SOLIZ, VALENTINE M Ot 805.2 10/04/2014 NICHOLAS SOLIZ, VALENTINE M Ot E000.8 10/04/2014 NICHOLAS SOLIZ, VALENTINE M Ot E888.9 10/30/2014 NICHOLAS SOLIZ, VALENTINE M Ot 719.45 10/30/2014 NICHOLAS SOLIZ, VALENTINE M Ot 805.2 10/30/2014 NICHOLAS SOLIZ, VALENTINE M Ot E000.8 10/30/2014 NICHOLAS SOLIZ, VALENTINE M Ot E888.9 03/12/2015 ANDRY YESENIA S PROFILE MILL OPERATOR TAPE CONTROL Ot 427.31 03/12/2015 WILDEYESENIA Tomas PROFILE MILL OPERATOR TAPE CONTROL Ot 611.72 03/12/2015 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 Ot 733.90 03/12/2015 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 Ot V10.3 03/12/2015 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 Ot V58.61 03/12/2015 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 Ot V58.69 03/12/2015 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 Ot V67.1 03/19/2015 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 Ot 174.9 03/19/2015 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 Ot 611.79 03/19/2015 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 Ot 785.6 09/16/2015 JAMES SOLIZ, JUANA Khan Ot R22 .0 09/16/2015 JUANA RAMIREZ MD Ot Z01.812 09/16/2015 JUANA RAMIREZ MD Ot Z11 .2 09/20/2015 JAMES SOLIZ, JUANA Khan Ot C44.311 BASAL CELL CARCINOMA OF SKIN OF NOSE 09/20/2015 JAMES SOLIZ, JUANA Khan Ot Z79.01 ASSISTED (CURRENT) USE OF ANTICOAGULANT 09/30/2015 Ot E78.2 09/30/2015 Ot I10 09/30/2015 Ot I48.0 09/30/2015 Ot R06.09 10/01/2015 Ot E78.2 10/01/2015 Ot I10 10/01/2015 Ot I48.0 10/01/2015 Ot R06.09 10/03/2015 Ot E78.2 10/03/2015 Ot I10 10/03/2015 Ot I48.0 10/03/2015 Ot R06.09 10/03/2015 JUANA RAMIREZ MD Ot R22 .0 10/03/2015 JUANA RAMIREZ MD Ot Z01.812 10/03/2015 JUANA RAMIREZ MD Ot Z11 .2 10/11/2015 ANAHY HANNA MD Ot E03. 9 HYPOTHYROIDISM, UNSPECIFIED 10/11/2015 ANAHY HANNA MD Ot E66. 9 OBESITY, UNSPECIFIED 10/11/2015 ANAHY HANNA MD Ot E87. 6 HYPOKALEMIA 10/11/2015 ANAHY HANNA MD Ot I12. 9 HYPERTENSIVE CHRONIC KIDNEY DISEASE W ST 10/11/2015 ANAHY HANNA MD Ot I25. 10 ATHSCL HEART DISEASE OF [place] CORONARY 10/11/2015 ANAHY HANNA MD Ot I27. 2 OTHER SECONDARY PULMONARY HYPERTENSION 10/11/2015 ANAHY HANNA MD Ot I48. 0 PAROXYSMAL ATRIAL FIBRILLATION 10/11/2015 ANAHY HANNA MD Ot I95. 81 POSTPROCEDURAL HYPOTENSION 10/11/2015 ANAHY HANNA MD Ot I97.610 POSTPROC HEMOR/HEMTOM OF A CIRC SYS ORG 10/11/2015 ANAHY HANNA MD, Ot J44. 9 CHRONIC OBSTRUCTIVE PULMONARY DISEASE, U 10/11/2015 ANAHY HANNA MD, Ot N18. 4 CHRONIC KIDNEY DISEASE, STAGE 4 (SEVERE) 10/11/2015 ANAHY HANNA MD, Ot N39. 0 URINARY TRACT INFECTION, SITE NOT SPECIF 10/11/2015 ANAHY HANNA MD, Ot Z68. 36 BODY MASS INDEX (BMI) 36.0-36.9, ADULT 10/11/2015 ANAHY HANNA MD Ot Z79.899 OTHER ASSISTED (CURRENT) DRUG THERAPY 10/11/2015 ANAHY HANNA MD Ot Z85. 3 PERSONAL HISTORY OF MALIGNANT NEOPLASM O 10/11/2015 ANAHY HANNA MD Ot Z92. 3 PERSONAL HISTORY OF IRRADIATION 10/18/2015 Ot E78.2 MIXE D HYPERLIPIDEMIA 10/18/2015 Ot I10 ESSENT IAL (PRIMARY) HYPERTENSION 10/18/2015 Ot I48.0 PARO XYSMAL ATRIAL FIBRILLATION 10/18/2015 Ot R06.09 OT ER FORMS OF DYSPNEA 10/22/2015 Ot E78.2 MIXE D HYPERLIPIDEMIA 10/22/2015 Ot I10 ESSENT IAL (PRIMARY) HYPERTENSION 10/22/2015 Ot I48.0 PARO XYSMAL ATRIAL FIBRILLATION 10/22/2015 Ot R06.09 OT ER FORMS OF DYSPNEA 11/03/2015 CLOVER RICHARDSON APRN Ot G57.91 UNSPECIFIED MONONEUROPATHY OF RIGHT LOWE 11/03/2015 CLOVER RICHARDSON APRN Ot M79.651 PAIN IN RIGHT THIGH 11/03/2015 CLOVER RICHARDSON APRN Ot R60 .0 LOCALIZED EDEMA 11/04/2015 CLOVER RICHARDSON APRN Ot G57.91 UNSPECIFIED MONONEUROPATHY OF RIGHT LOWE 11/04/2015 CLOVER RICHARDSON APRN Ot M79.651 PAIN IN RIGHT THIGH 11/04/2015 CLOVER RICHARDSON APRN Ot R60 .0 LOCALIZED EDEMA 11/18/2015 CLOVER RICHARDSON APRN Ot S81.811A LACERATION W/O FOREIGN BODY, RIGHT LOWER 11/18/2015 CLOVER RICHARDSON APRN Ot W22.8XXA STRIKING AGAINST OR STRUCK BY OTHER OBJE 11/18/2015 CLOVER RICHARDSON APRN Ot Y92.[address] IN [facility] (PRIVATE 11/18/2015 CLOVER RICHARDSON APRN Ot Y99 .8 OTHER EXTERNAL CAUSE STATUS 11/18/2015 CLOVER RICHARDSON APRN Ot Z23 ENCOUNTER FOR IMMUNIZATION 11/19/2015 CLOVER RICHARDSON APRN Ot S81.811A LACERATION W/O FOREIGN BODY, RIGHT LOWER 11/19/2015 CLOVER RICHARDSON APRN Ot W22.8XXA STRIKING AGAINST OR STRUCK BY OTHER OBJE 11/19/2015 CLOVER RICHARDSON APRN Ot Y92.[address] IN [facility] ([facility] 11/19/2015 CLOVER RICHARDSON APRN Ot Y99 .8 OTHER EXTERNAL CAUSE STATUS 11/19/2015 CLOVER RICHARDSON APRN Ot Z23 ENCOUNTER FOR IMMUNIZATION 11/28/2015 CLOVER RICHARDSON APRN Ot S81.811D LACERATION W/O FOREIGN BODY, RIGHT LOWER 11/29/2015 CLOVER RICHARDSON APRN Ot S81.811D LACERATION W/O FOREIGN BODY, RIGHT LOWER 12/03/2015 ANAHY HANNA MD Ot Z48.812 ENCNTR FOR SURGICAL AFTCR FOLLOWING SURG 12/03/2015 ANAHY HANNA MD Ot Z95. 5 PRESENCE OF CORONARY ANGIOPLASTY IMPLANT 12/17/2015 Ot 174.9 [place] GN NEOPL BREAST NOS 12/17/2015 Ot V76.11 SCR N MAMMO-HIGH RISK PT, MALIGNANT NEOPL 12/17/2015 Ot 621.2 HYPE RTROPHY OF UTERUS 12/17/2015 Ot 627.1 POST MENOPAUSAL BLEEDING 12/17/2015 Ot 793.5 NOSP (ABN) FINDINGS ON RADIOLOGICAL OT 12/17/2015 Ot 174.9 [place] GN NEOPL BREAST NOS 12/17/2015 Ot 427.31 ATR IAL FIBRILLATION 12/17/2015 Ot 733.90 BON E CARTILAGE DIS NOS 12/17/2015 Ot V15.3 HX O F IRRADIATION 12/17/2015 Ot V58.61 ANTICOAGULANTS,LT,CURRENT USE 12/17/2015 Ot V58.69 OTH MED,LT,CURRENT USE 12/17/2015 Ot 397.0 TRIC USPID VALVE DISEASE 12/17/2015 Ot 401.9 HYPE RTENSION NOS 12/17/2015 Ot 416.8 CHR PULMON HEART DIS NEC 12/17/2015 Ot 424.0 MITR AL VALVE DISORDER 12/17/2015 Ot 427.31 ATR IAL FIBRILLATION 12/17/2015 Ot 786.09 RES PIRATORY ABNORM NEC 12/17/2015 Ot V58.61 ANTICOAGULANTS,LT,CURRENT USE 12/17/2015 Ot V58.83 ENC OUNTER FOR THERAPEUTIC DRUG MONITORIN 12/17/2015 Ot V43.65 KNE E JOINT REPLACEMENT STATUS 12/17/2015 Ot V58.61 ANTICOAGULANTS,LT,CURRENT USE 12/17/2015 Ot V58.83 ENC OUNTER FOR THERAPEUTIC DRUG MONITORIN 12/17/2015 Ot 793.89 OTH (ABN) FINDINGS ON RADIOLOGICAL EXAMI 12/17/2015 Ot V10.3 HX O F BREAST MALIGNANCY 12/17/2015 Ot V76.11 SCR N MAMMO-HIGH RISK PT, MALIGNANT NEOPL 12/17/2015 Ot 174.9 [place] GN NEOPL BREAST NOS 12/17/2015 Ot 174.9 [place] GN NEOPL BREAST NOS 12/17/2015 Ot 174.9 [place] GN NEOPL BREAST NOS 12/17/2015 Ot V67.9 FOLL OW-UP EXAM NOS 12/17/2015 Ot 401.9 HYPE RTENSION NOS 12/17/2015 Ot 424.0 MITR AL VALVE DISORDER 12/17/2015 Ot 427.31 ATR IAL FIBRILLATION 12/17/2015 Ot 782.3 EDEMA 12/17/2015 Ot 174.9 [place] GN NEOPL BREAST NOS 12/17/2015 Ot 733.90 BON E CARTILAGE DIS NOS 12/17/2015 Ot V58.61 ANTICOAGULANTS,LT,CURRENT USE 12/17/2015 Ot V58.83 ENC OUNTER FOR THERAPEUTIC DRUG MONITORIN 12/17/2015 Ot 427.31 ATR IAL FIBRILLATION 12/17/2015 Ot 733.90 BON E CARTILAGE DIS NOS 12/17/2015 Ot V10.3 HX O F BREAST MALIGNANCY 12/17/2015 Ot V58.61 ANTICOAGULANTS,LT,CURRENT USE 12/17/2015 Ot V58.69 OTH MED,LT,CURRENT USE 12/17/2015 Ot V67.1 RADI OTHERAPY FOLLOW-UP 12/17/2015 Ot 427.31 ATR IAL FIBRILLATION 12/17/2015 Ot V10.3 HX O F BREAST MALIGNANCY 12/17/2015 WILDEYESENIA Tomas S PROFILE MILL OPERATOR TAPE CONTROL Ot 427.31 ATRIAL FIBRILLATION 12/17/2015 YESENIA WILDE S PROFILE MILL OPERATOR TAPE CONTROL Ot 733.90 BONE CARTILAGE DIS NOS 12/17/2015 YESENIA WILDE S PROFILE MILL OPERATOR TAPE CONTROL Ot V10.3 HX OF BREAST MALIGNANCY 12/17/2015 WILDEYESENIA Tomas PROFILE MILL OPERATOR TAPE CONTROL Ot V58.61 ANTICOAGULANTS,LT,CURRENT USE 12/17/2015 WILDEYESENIA Tomas PROFILE MILL OPERATOR TAPE CONTROL Ot V58.69 OTH MED,LT,CURRENT USE 12/17/2015 WILDEYESENIA Tomas PROFILE MILL OPERATOR TAPE CONTROL Ot V67.1 RADIOTHERAPY FOLLOW-UP 12/17/2015 KAROLINE RIVERA A PROFILE MILL OPERATOR TAPE CONTROL Ot 244.9 HYPOTHYROIDISM NOS 12/17/2015 RIVERAKAROLINE WAGGONER A PROFILE MILL OPERATOR TAPE CONTROL Ot 397.0 TRICUSPID VALVE DISEASE 12/17/2015 RIVERAKAROLINE WAGGONER A PROFILE MILL OPERATOR TAPE CONTROL Ot 401.9 HYPERTENSION NOS 12/17/2015 RIVERAKAROLINE WAGGONER A PROFILE MILL OPERATOR TAPE CONTROL Ot 416.8 CHR PULMON HEART DIS NEC 12/17/2015 RIVERAKAROLINE WAGGONER A PROFILE MILL OPERATOR TAPE CONTROL Ot 424.0 MITRAL VALVE DISORDER 12/17/2015 RIVERAKAROLINE WAGGONER A PROFILE MILL OPERATOR TAPE CONTROL Ot 427.31 ATRIAL FIBRILLATION 12/17/2015 KAROLINE RIVERA PROFILE MILL OPERATOR TAPE CONTROL Ot 780.4 DIZZINESS AND GIDDINESS 12/17/2015 RIVERAKAROLINE WAGGONER A PROFILE MILL OPERATOR TAPE CONTROL Ot 780.79 OTH MALAISE FATIGUE 12/17/2015 KAROLINE RIVERA PROFILE MILL OPERATOR TAPE CONTROL Ot V58.69 OTH MED,LT,CURRENT USE 12/17/2015 NICHOLAS SOLIZ, VALENTINE Castro Ot 427.31 ATRIAL FIBRILLATION 12/17/2015 WILDEYESENIA Tomas S PROFILE MILL OPERATOR TAPE CONTROL Ot 174.9 MALIGN NEOPL BREAST NOS 12/17/2015 NOREEN SOLIZ, SUZI Krueger Ot V72. 84 EXAM PRE-OPERATIVE NOS 12/17/2015 JIMMY, BOBAN N Ot 174.9 MALIGN NEOPL BREAST NOS 12/17/2015 MEHRAN MARQUEZ N Ot 733.90 BONE CARTILAGE DIS NOS 12/17/2015 MEHRAN MARQUEZ N Ot V10.3 HX OF BREAST MALIGNANCY 12/17/2015 VALENTINE PETERSON MD Ot 719.45 JOINT PAIN-PELVIS 12/17/2015 VALENTINE PETERSON MD Ot 805.2 FX DORSAL VERTEBRA-CLOSE 12/17/2015 VALENTINE PETERSON MD Ot E000.8 OTHER EXTERNAL CAUSE STATUS 12/17/2015 VALENTINE PETERSON MD Ot E888.9 FALL NOS 12/17/2015 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 Ot 427.31 ATRIAL FIBRILLATION 12/17/2015 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 Ot 611.72 LUMP OR MASS IN BREAST 12/17/2015 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 Ot 733.90 BONE CARTILAGE DIS NOS 12/17/2015 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 Ot V10.3 HX OF BREAST MALIGNANCY 12/17/2015 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 Ot V58.61 ANTICOAGULANTS,LT,CURRENT USE 12/17/2015 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 Ot V58.69 OTH MED,LT,CURRENT USE 12/17/2015 EYSENIA WILDE PROFILE MILL OPERATOR TAPE CONTROL Ot V67.1 RADIOTHERAPY FOLLOW-UP 12/17/2015 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 Ot 174.9 MALIGN NEOPL BREAST NOS 12/17/2015 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 Ot 611.79 SYMPTOMS IN BREAST NEC 12/17/2015 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 Ot 785.6 ENLARGEMENT LYMPH NODES 12/17/2015 Ot E78.2 MIXE D HYPERLIPIDEMIA 12/17/2015 Ot I10 ESSENT IAL (PRIMARY) HYPERTENSION 12/17/2015 Ot I48.0 PARO XYSMAL ATRIAL FIBRILLATION 12/17/2015 Ot R06.09 OTH ER FORMS OF DYSPNEA 12/17/2015 Ot E78.2 MIXE D HYPERLIPIDEMIA 12/17/2015 Ot I10 ESSENT IAL (PRIMARY) HYPERTENSION 12/17/2015 Ot I48.0 PARO XYSMAL ATRIAL FIBRILLATION 12/17/2015 Ot R06.09 OTH ER FORMS OF DYSPNEA 12/17/2015 JAMES SOLIZ, JUANA Khan Ot R22 .0 LOCALIZED SWELLING, MASS AND LUMP, HEAD 12/17/2015 JAMES SOLIZ, JUANA Khan Ot Z01.812 ENCOUNTER FOR PREPROCEDURAL LABORATORY E 12/17/2015 JAMES SOLIZ, JUANA Khan Ot Z11 .2 ENCOUNTER FOR SCREENING FOR OTHER BACTER 12/17/2015 ANAHY HANNA MD Ot Z48.812 ENCNTR FOR SURGICAL AFTCR FOLLOWING SURG 12/17/2015 ANAHY HANNA MD Ot Z95. 5 PRESENCE OF CORONARY ANGIOPLASTY IMPLANT 12/17/2015 CLOVER RICHARDSON EXECUTIVE VICE PRESIDENT OF SALES Ot S81.811D LACERATION W/O FOREIGN BODY, RIGHT LOWER 12/21/2015 CLOVER RICHARDSON APRN Ot S81.811D LACERATION W/O FOREIGN BODY, RIGHT LOWER 12/31/2015 CHAIM RENDON Ot M76.31 ILIOTIBIAL BAND SYNDROME, RIGHT LEG 01/16/2016 ANAHY HANNA MD Ot Z48.812 ENCNTR FOR SURGICAL AFTCR FOLLOWING SURG 01/16/2016 ANAHY HANNA MD Ot Z95. 5 PRESENCE OF CORONARY ANGIOPLASTY IMPLANT 01/16/2016 CHAIM RENDON Ot M76.31 ILIOTIBIAL BAND SYNDROME, RIGHT LEG 02/14/2016 CHAIM RENDON Ot M76.31 ILIOTIBIAL BAND SYNDROME, RIGHT LEG 03/01/2016 ANAHY HANNA MD Ot Z48.812 ENCNTR FOR SURGICAL AFTCR FOLLOWING SURG 03/01/2016 ANAHY HANNA MD Ot Z95. 5 PRESENCE OF CORONARY ANGIOPLASTY IMPLANT 03/12/2016 MEHRAN MARQUEZ Ot I48.91 UNSPECIFIED ATRIAL FIBRILLATION 03/12/2016 MEHRAN MARQUEZ Ot Z09 ENCNTR FOR F/U EXAM AFT TRTMT FOR COND O 03/12/2016 MEHRAN MARQUEZ Ot Z79.01 [employer]IEF (CURRENT) USE OF ANTICOAGULANT 03/12/2016 MEHRAN MARQUEZ Ot Z79.899 OTHER ASSISTED (CURRENT) DRUG THERAPY 03/12/2016 MEHRAN MARQUEZ Ot Z85.3 PERSONAL HISTORY OF MALIGNANT NEOPLASM O 03/23/2016 Ot 174.9 [place] GN NEOPL BREAST NOS 03/23/2016 Ot 427.31 ATR IAL FIBRILLATION 03/23/2016 Ot 733.90 BON E CARTILAGE DIS NOS 03/23/2016 Ot V15.3 HX O F IRRADIATION 03/23/2016 Ot V58.61 ANTICOAGULANTS,LT,CURRENT USE 03/23/2016 Ot V58.69 OTH MED,LT,CURRENT USE 03/23/2016 Ot 397.0 TRIC USPID VALVE DISEASE 03/23/2016 Ot 401.9 HYPE RTENSION NOS 03/23/2016 Ot 416.8 CHR PULMON HEART DIS NEC 03/23/2016 Ot 424.0 MITR AL VALVE DISORDER 03/23/2016 Ot 427.31 ATR IAL FIBRILLATION 03/23/2016 Ot 786.09 RES PIRATORY ABNORM NEC 03/23/2016 Ot V58.61 ANTICOAGULANTS,LT,CURRENT USE 03/23/2016 Ot V58.83 ENC OUNTER FOR THERAPEUTIC DRUG MONITORIN 03/23/2016 Ot V43.65 KNE E JOINT REPLACEMENT STATUS 03/23/2016 Ot V58.61 ANTICOAGULANTS,LT,CURRENT USE 03/23/2016 Ot V58.83 ENC OUNTER FOR THERAPEUTIC DRUG MONITORIN 03/23/2016 Ot 793.89 OTH (ABN) FINDINGS ON RADIOLOGICAL EXAMI 03/23/2016 Ot V10.3 HX O F BREAST MALIGNANCY 03/23/2016 Ot V76.11 SCR N MAMMO-HIGH RISK PT, MALIGNANT NEOPL 03/23/2016 Ot 174.9 [place] GN NEOPL BREAST NOS 03/23/2016 Ot 174.9 [place] GN NEOPL BREAST NOS 03/23/2016 Ot 174.9 [place] GN NEOPL BREAST NOS 03/23/2016 Ot V67.9 FOLL OW-UP EXAM NOS 03/23/2016 Ot 401.9 HYPE RTENSION NOS 03/23/2016 Ot 424.0 MITR AL VALVE DISORDER 03/23/2016 Ot 427.31 ATR IAL FIBRILLATION 03/23/2016 Ot 782.3 EDEMA 03/23/2016 Ot 174.9 [place] GN NEOPL BREAST NOS 03/23/2016 Ot 733.90 BON E CARTILAGE DIS NOS 03/23/2016 Ot V58.61 ANTICOAGULANTS,LT,CURRENT USE 03/23/2016 Ot V58.83 ENC OUNTER FOR THERAPEUTIC DRUG MONITORIN 03/23/2016 Ot 427.31 ATR IAL FIBRILLATION 03/23/2016 Ot 733.90 BON E CARTILAGE DIS NOS 03/23/2016 Ot V10.3 HX O F BREAST MALIGNANCY 03/23/2016 Ot V58.61 ANTICOAGULANTS,LT,CURRENT USE 03/23/2016 Ot V58.69 OTH MED,LT,CURRENT USE 03/23/2016 Ot V67.1 RADI OTHERAPY FOLLOW-UP 03/23/2016 Ot 427.31 ATR IAL FIBRILLATION 03/23/2016 Ot V10.3 HX O F BREAST MALIGNANCY 03/23/2016 WILDEYESENIA Tomas S PROFILE MILL OPERATOR TAPE CONTROL Ot 427.31 ATRIAL FIBRILLATION 03/23/2016 WILDEYESENIA Tomas S PROFILE MILL OPERATOR TAPE CONTROL Ot 733.90 BONE CARTILAGE DIS NOS 03/23/2016 WILDEYESENIA Tomas S PROFILE MILL OPERATOR TAPE CONTROL Ot V10.3 HX OF BREAST MALIGNANCY 03/23/2016 WILDEYESENIA S PROFILE MILL OPERATOR TAPE CONTROL Ot V58.61 ANTICOAGULANTS,LT,CURRENT USE 03/23/2016 WILDEYESENIA Tomas PROFILE MILL OPERATOR TAPE CONTROL Ot V58.69 OTH MED,LT,CURRENT USE 03/23/2016 WILDEYESENIA S PROFILE MILL OPERATOR TAPE CONTROL Ot V67.1 RADIOTHERAPY FOLLOW-UP 03/23/2016 KAROLINE RIVERA PROFILE MILL OPERATOR TAPE CONTROL Ot 244.9 HYPOTHYROIDISM NOS 03/23/2016 RIVERAKAROLINE WAGGONER PROFILE MILL OPERATOR TAPE CONTROL Ot 397.0 TRICUSPID VALVE DISEASE 03/23/2016 RVIERAKAROLINE WAGGONER PROFILE MILL OPERATOR TAPE CONTROL Ot 401.9 HYPERTENSION NOS 03/23/2016 RIVERAKAROLINE WAGGONER PROFILE MILL OPERATOR TAPE CONTROL Ot 416.8 CHR PULMON HEART DIS NEC 03/23/2016 KAROLINE RIVERA PROFILE MILL OPERATOR TAPE CONTROL Ot 424.0 MITRAL VALVE DISORDER 03/23/2016 RIVERAKAROLINE WAGGONER A PROFILE MILL OPERATOR TAPE CONTROL Ot 427.31 ATRIAL FIBRILLATION 03/23/2016 KAROLINE RIVERA PROFILE MILL OPERATOR TAPE CONTROL Ot 780.4 DIZZINESS AND GIDDINESS 03/23/2016 KAROLINE RIVERA PROFILE MILL OPERATOR TAPE CONTROL Ot 780.79 OTH MALAISE FATIGUE 03/23/2016 KAROLINE RIVERA PROFILE MILL OPERATOR TAPE CONTROL Ot V58.69 OTH MED,LT,CURRENT USE 03/23/2016 NICHOLAS SOLIZ, VALENTINE Castro Ot 427.31 ATRIAL FIBRILLATION 03/23/2016 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 Ot 174.9 MALIGN NEOPL BREAST NOS 03/23/2016 NOREEN SOLIZ, SUZI Krueger Ot V72. 84 EXAM PRE-OPERATIVE NOS 03/23/2016 MEHRAN MARQUEZ Ot 174.9 MALIGN NEOPL BREAST NOS 03/23/2016 MEHRAN MARQUEZ Ot 733.90 BONE CARTILAGE DIS NOS 03/23/2016 MEHRAN MARQUEZ Ot V10.3 HX OF BREAST MALIGNANCY 03/23/2016 NICHOLAS SOLIZ, VALENTINE Castro Ot 719.45 JOINT PAIN-PELVIS 03/23/2016 NICHOLAS SOLIZ, VALENTINE Castro Ot 805.2 FX DORSAL VERTEBRA-CLOSE 03/23/2016 NICHOLAS SOLIZ, VALENTINE Castro Ot E000.8 OTHER EXTERNAL CAUSE STATUS 03/23/2016 NICHOLAS SOLIZ, VALENTINE Castro Ot E888.9 FALL NOS 03/23/2016 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 Ot 427.31 ATRIAL FIBRILLATION 03/23/2016 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 Ot 611.72 LUMP OR MASS IN BREAST 03/23/2016 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 Ot 733.90 BONE CARTILAGE DIS NOS 03/23/2016 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 Ot V10.3 HX OF BREAST MALIGNANCY 03/23/2016 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 Ot V58.61 ANTICOAGULANTS,LT,CURRENT USE 03/23/2016 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 Ot V58.69 OTH MED,LT,CURRENT USE 03/23/2016 YESENIA WILDE S PROFILE MILL OPERATOR TAPE CONTROL Ot V67.1 RADIOTHERAPY FOLLOW-UP 03/23/2016 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 Ot 174.9 MALIGN NEOPL BREAST NOS 03/23/2016 YESENIA WILDE S PROFILE MILL OPERATOR TAPE CONTROL Ot 611.79 SYMPTOMS IN BREAST NEC 03/23/2016 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 Ot 785.6 ENLARGEMENT LYMPH NODES 03/23/2016 Ot E78.2 MIXE D HYPERLIPIDEMIA 03/23/2016 Ot I10 ESSENT IAL (PRIMARY) HYPERTENSION 03/23/2016 Ot I48.0 PARO XYSMAL ATRIAL FIBRILLATION 03/23/2016 Ot R06.09 OTH ER FORMS OF DYSPNEA 03/23/2016 Ot E78.2 MIXE D HYPERLIPIDEMIA 03/23/2016 Ot I10 ESSENT IAL (PRIMARY) HYPERTENSION 03/23/2016 Ot I48.0 PARO XYSMAL ATRIAL FIBRILLATION 03/23/2016 Ot R06.09 OTH ER FORMS OF DYSPNEA 03/23/2016 JAMES SOLIZ, JUANA Khan Ot R22 .0 LOCALIZED SWELLING, MASS AND LUMP, HEAD 03/23/2016 JAMES SOLIZ, JUANA Khan Ot Z01.812 ENCOUNTER FOR PREPROCEDURAL LABORATORY E 03/23/2016 JAMES SOLIZ, JUANA Khan Ot Z11 .2 ENCOUNTER FOR SCREENING FOR OTHER BACTER 03/23/2016 JACQUES SOLIZ, ANAHY Hurtado Ot Z48.812 ENCNTR FOR SURGICAL AFTCR FOLLOWING SURG 03/23/2016 JACQUES SLOIZ, ANHAY Hurtado Ot Z95. 5 PRESENCE OF CORONARY ANGIOPLASTY IMPLANT 03/23/2016 MEHRAN MARQUEZ Ot I48.91 UNSPECIFIED ATRIAL FIBRILLATION 03/23/2016 MEHRAN MARQUEZ Ot Z09 ENCNTR FOR F/U EXAM AFT TRTMT FOR COND O 03/23/2016 MEHRAN MARQUEZ Ot Z79.01 DISTRICT WIRE CHIEF (CURRENT) USE OF ANTICOAGULANT 03/23/2016 MEHRAN MARQUEZ Ot Z79.899 OTHER DISTRICT W[employer] CHIEF (CURRENT) DRUG THERAPY 03/23/2016 MEHRAN MARQUEZ Ot Z85.3 PERSONAL HISTORY OF MALIGNANT NEOPLASM O 03/23/2016 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 Ot N64.59 OTHER SIGNS AND SYMPTOMS IN BREAST 03/24/2016 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 Ot N64.59 OTHER SIGNS AND SYMPTOMS IN BREAST 03/24/2016 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 Ot 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 03/24/2016 YESENIA WILED PROFILE MILL OPERATOR TAPE CONTROL Ot N64.59 OTHER SIGNS AND SYMPTOMS IN BREAST 04/02/2016 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 Ot 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 04/02/2016 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 Ot N64.59 OTHER SIGNS AND SYMPTOMS IN BREAST 04/03/2016 MEHRAN MARQUEZ Ot I48.91 UNSPECIFIED ATRIAL FIBRILLATION 04/03/2016 MEHRAN MARQUEZ Ot Z09 ENCNTR FOR F/U EXAM AFT TRTMT FOR COND O 04/03/2016 MEHRAN MARQUEZ Ot Z79.01 DISTRICT WIRE CHIEF (CURRENT) USE OF ANTICOAGULANT 04/03/2016 MEHRAN MARQUEZ Ot Z79.899 OTHER ASSISTED (CURRENT) DRUG THERAPY 04/03/2016 MEHRAN MARQUEZ Ot Z85.3 PERSONAL HISTORY OF MALIGNANT NEOPLASM O 06/25/2016 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 Ot 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 06/25/2016 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 Ot 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 06/25/2016 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 Ot N64.59 OTHER SIGNS AND SYMPTOMS IN BREAST 06/25/2016 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 Ot R92.8 OTH ABN AND INCONCLUSIVE FINDINGS ON DX 06/26/2016 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 Ot 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 2 MIXED HYPERLIPIDEMIA 08/07/2016 ANAHY HANNA MD Ot I12. 9 HYPERTENSIVE CHRONIC KIDNEY DISEASE W ST 08/07/2016 ANAHY HANNA MD Ot I25. 10 ATHSCL HEART DISEASE OF [place] CORONARY 08/07/2016 ANAHY HANNA MD Ot I48. 2 CHRONIC ATRIAL FIBRILLATION 08/07/2016 ANAHY HANNA MD Ot N18. 4 CHRONIC KIDNEY DISEASE, STAGE 4 (SEVERE) 08/26/2016 Ot V58.61 ANTICOAGULANTS,LT,CURRENT USE 08/26/2016 Ot V58.83 ENC OUNTER FOR THERAPEUTIC DRUG MONITORIN 08/26/2016 Ot V43.65 KNE E JOINT REPLACEMENT STATUS 08/26/2016 Ot V58.61 ANTICOAGULANTS,LT,CURRENT USE 08/26/2016 Ot V58.83 ENC OUNTER FOR THERAPEUTIC DRUG MONITORIN 08/26/2016 Ot 793.89 OTH (ABN) FINDINGS ON RADIOLOGICAL EXAMI 08/26/2016 Ot V10.3 HX O F BREAST MALIGNANCY 08/26/2016 Ot V76.11 SCR N MAMMO-HIGH RISK PT, MALIGNANT NEOPL 08/26/2016 Ot 174.9 [place] GN NEOPL BREAST NOS 08/26/2016 Ot 174.9 [place] GN NEOPL BREAST NOS 08/26/2016 Ot 174.9 [place] GN NEOPL BREAST NOS 08/26/2016 Ot V67.9 FOLL OW-UP EXAM NOS 08/26/2016 Ot 401.9 HYPE RTENSION NOS 08/26/2016 Ot 424.0 MITR AL VALVE DISORDER 08/26/2016 Ot 427.31 ATR IAL FIBRILLATION 08/26/2016 Ot 782.3 EDEMA 08/26/2016 Ot 174.9 [place] GN NEOPL BREAST NOS 08/26/2016 Ot 733.90 BON E CARTILAGE DIS NOS 08/26/2016 Ot V58.61 ANTICOAGULANTS,LT,CURRENT USE 08/26/2016 Ot V58.83 ENC OUNTER FOR THERAPEUTIC DRUG MONITORIN 08/26/2016 Ot 427.31 ATR IAL FIBRILLATION 08/26/2016 Ot 733.90 BON E CARTILAGE DIS NOS 08/26/2016 Ot V10.3 HX O F BREAST MALIGNANCY 08/26/2016 Ot V58.61 ANTICOAGULANTS,LT,CURRENT USE 08/26/2016 Ot V58.69 OTH MED,LT,CURRENT USE 08/26/2016 Ot V67.1 RADI OTHERAPY FOLLOW-UP 08/26/2016 Ot 427.31 ATR IAL FIBRILLATION 08/26/2016 Ot V10.3 HX O F BREAST MALIGNANCY 08/26/2016 YESENIA WILDEP Ot 427.31 ATRIAL FIBRILLATION 08/26/2016 YESENIA WILDEP Ot 733.90 BONE CARTILAGE DIS NOS 08/26/2016 YESENIA WILDEP Ot V10.3 HX OF BREAST MALIGNANCY 08/26/2016 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 Ot V58.61 ANTICOAGULANTS,LT,CURRENT USE 08/26/2016 YESENIA WILDE Ot V58.69 OTH MED,LT,CURRENT USE 08/26/2016 YESENIA WILDEP Ot V67.1 RADIOTHERAPY FOLLOW-UP 08/26/2016 KAROLINE RIVERAP Ot 244.9 HYPOTHYROIDISM NOS 08/26/2016 KAROLINE RIVERA PROFILE MILL OPERATOR TAPE CONTROL Ot 397.0 TRICUSPID VALVE DISEASE 08/26/2016 KAROLINE RIVERAP Ot 401.9 HYPERTENSION NOS 08/26/2016 KAROLINE RIVERA PROFILE MILL OPERATOR TAPE CONTROL Ot 416.8 CHR PULMON HEART DIS NEC 08/26/2016 KAROLINE RIVERA PROFILE MILL OPERATOR TAPE CONTROL Ot 424.0 MITRAL VALVE DISORDER 08/26/2016 KAROLINE RIVERA PROFILE MILL OPERATOR TAPE CONTROL Ot 427.31 ATRIAL FIBRILLATION 08/26/2016 KAROLINE RIVERA PROFILE MILL OPERATOR TAPE CONTROL Ot 780.4 DIZZINESS AND GIDDINESS 08/26/2016 KAROLINE RIVERA PROFILE MILL OPERATOR TAPE CONTROL Ot 780.79 OTH MALAISE FATIGUE 08/26/2016 KAROLINE RIVERA PROFILE MILL OPERATOR TAPE CONTROL Ot V58.69 OTH MED,LT,CURRENT USE 08/26/2016 NICHOLAS SOLIZ, VALENTINE Castro Ot 427.31 ATRIAL FIBRILLATION 08/26/2016 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 Ot 174.9 MALIGN NEOPL BREAST NOS 08/26/2016 NOREEN SOILZ, SUZI Krueger Ot V72. 84 EXAM PRE-OPERATIVE NOS 08/26/2016 MEHRAN MARQUEZ Ot 174.9 MALIGN NEOPL BREAST NOS 08/26/2016 MEHRAN MARQUEZ Ot 733.90 BONE CARTILAGE DIS NOS 08/26/2016 MEHRAN MARQUEZ Ot V10.3 HX OF BREAST MALIGNANCY 08/26/2016 NICHOLAS SOLIZ, VALENTINE Castro Ot 719.45 JOINT PAIN-PELVIS 08/26/2016 NICHOLAS SOLIZ, VALENTINE Castro Ot 805.2 FX DORSAL VERTEBRA-CLOSE 08/26/2016 NICHOLAS SOLIZ, VALENTINE Castro Ot E000.8 OTHER EXTERNAL CAUSE STATUS 08/26/2016 NICHOLAS SOLIZ, VALENTINE Castro Ot E888.9 FALL NOS 08/26/2016 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 Ot 427.31 ATRIAL FIBRILLATION 08/26/2016 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 Ot 611.72 LUMP OR MASS IN BREAST 08/26/2016 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 Ot 733.90 BONE CARTILAGE DIS NOS 08/26/2016 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 Ot V10.3 HX OF BREAST MALIGNANCY 08/26/2016 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 Ot V58.61 ANTICOAGULANTS,LT,CURRENT USE 08/26/2016 YESENIA WILDEP Ot V58.69 OTH MED,LT,CURRENT USE 08/26/2016 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 Ot V67.1 RADIOTHERAPY FOLLOW-UP 08/26/2016 WILDE, HILAH S PROFILE MILL OPERATOR TAPE CONTROL Ot 174.9 MALIGN NEOPL BREAST NOS 08/26/2016 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 Ot 611.79 SYMPTOMS IN BREAST NEC 08/26/2016 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 Ot 785.6 ENLARGEMENT LYMPH NODES 08/26/2016 Ot E78.2 MIXE D HYPERLIPIDEMIA 08/26/2016 Ot I10 ESSENT IAL (PRIMARY) HYPERTENSION 08/26/2016 Ot I48.0 PARO XYSMAL ATRIAL FIBRILLATION 08/26/2016 Ot R06.09 OT ER FORMS OF DYSPNEA 08/26/2016 Ot E78.2 MIXE D HYPERLIPIDEMIA 08/26/2016 Ot I10 ESSENT IAL (PRIMARY) HYPERTENSION 08/26/2016 Ot I48.0 PARO XYSMAL ATRIAL FIBRILLATION 08/26/2016 Ot R06.09 OT ER FORMS OF DYSPNEA 08/26/2016 JAMES SOLIZ, JUANA Khan Ot R22 .0 LOCALIZED SWELLING, MASS AND LUMP, HEAD 08/26/2016 JUANA RAMIREZ MD Ot Z01.812 ENCOUNTER FOR PREPROCEDURAL LABORATORY E 08/26/2016 JUANA RAMIREZ MD Ot Z11 .2 ENCOUNTER FOR SCREENING FOR OTHER BACTER 08/26/2016 ANAHY HANNA MD Ot Z48.812 ENCNTR FOR SURGICAL AFTCR FOLLOWING SURG 08/26/2016 ANAHY HANNA MD Ot Z95. 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 2 MIXED HYPERLIPIDEMIA 08/26/2016 ANAHY HANNA MD Ot I12. 9 HYPERTENSIVE CHRONIC KIDNEY DISEASE W ST 08/26/2016 ANAHY HANNA MD Ot I25. 10 ATHSCL HEART DISEASE OF [place] CORONARY 08/26/2016 ANAHY HANNA MD Ot I48. 2 CHRONIC ATRIAL FIBRILLATION 08/26/2016 ANAHY HANNA MD Ot N18. 4 CHRONIC KIDNEY DISEASE, STAGE 4 (SEVERE) 08/26/2016 ANAHY HANNA MD Ot E03. 9 HYPOTHYROIDISM, UNSPECIFIED 08/26/2016 ANAHY HANNA MD Ot E11. 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 5 HYPERLIPIDEMIA, UNSPECIFIED 08/26/2016 ANAHY HANNA MD Ot I12. 9 HYPERTENSIVE CHRONIC KIDNEY DISEASE W ST 08/26/2016 ANAHY HANNA MD Ot I25. 10 ATHSCL HEART DISEASE OF [place] CORONARY 08/26/2016 ANAHY HANNA MD Ot I48. 2 CHRONIC ATRIAL FIBRILLATION 08/26/2016 ANAHY HANNA MD Ot I50. 32 CHRONIC DIASTOLIC (CONGESTIVE) HEART ASHLI 08/26/2016 ANAHY HANNA MD Ot J44. 9 CHRONIC OBSTRUCTIVE PULMONARY DISEASE, U 08/26/2016 ANAHY HANNA MD Ot N18. 4 CHRONIC KIDNEY DISEASE, STAGE 4 (SEVERE) 08/26/2016 ANAHY HANNA MD Ot R94. 39 ABNORMAL RESULT OF OTHER CARDIOVASCULAR 08/26/2016 ANAHY HANNA MD Ot Z79. 01 ASSISTED (CURRENT) USE OF ANTICOAGULANT 08/26/2016 ANAHY HANNA MD Ot Z79.899 OTHER DISTRICT WIRE CHIEF (CURRENT) DRUG THERAPY 08/26/2016 ANAHY HANNA MD Ot Z85. 3 PERSONAL HISTORY OF MALIGNANT NEOPLASM O 08/26/2016 ANAHY HANNA MD Ot Z92. 3 PERSONAL HISTORY OF IRRADIATION 08/26/2016 ANAHY HANNA MD Ot Z95. 5 PRESENCE OF CORONARY ANGIOPLASTY IMPLANT 09/11/2016 ANAHY HANNA MD Ot E03. 9 HYPOTHYROIDISM, UNSPECIFIED 09/11/2016 ANAHY HANNA MD Ot E11. 22 TYPE 2 DIABETES MELLITUS W DIABETIC JEWELRY DESIGNER 09/11/2016 ANAHY HANNA MD Ot E78. 5 HYPERLIPIDEMIA, UNSPECIFIED 09/11/2016 ANAHY HANNA MD Ot I12. 9 HYPERTENSIVE CHRONIC KIDNEY DISEASE W ST 09/11/2016 ANAHY HANNA MD Ot I25. 10 ATHSCL HEART DISEASE OF [place] CORONARY 09/11/2016 ANAHY HANNA MD Ot I48. 2 CHRONIC ATRIAL FIBRILLATION 09/11/2016 ANAHY HANNA MD Ot I50. 32 CHRONIC DIASTOLIC (CONGESTIVE) HEART ASHLI 09/11/2016 ANAHY HANNA MD Ot J44. 9 CHRONIC OBSTRUCTIVE PULMONARY DISEASE, U 09/11/2016 ANAHY HANNA MD Ot N18. 4 CHRONIC KIDNEY DISEASE, STAGE 4 (SEVERE) 09/11/2016 ANAHY HANNA MD Ot R94. 39 ABNORMAL RESULT OF OTHER CARDIOVASCULAR 09/11/2016 ANAHY HANNA MD Ot Z79. 01 DISTRICT WIRE CHIEF (CURRENT) USE OF ANTICOAGULANT 09/11/2016 ANAHY HANNA MD Ot Z79.899 OTHER ASSISTED (CURRENT) DRUG THERAPY 09/11/2016 ANAHY HANNA MD Ot Z85. 3 PERSONAL HISTORY OF MALIGNANT NEOPLASM O 09/11/2016 ANAHY HANNA MD Ot Z92. 3 PERSONAL HISTORY OF IRRADIATION 09/11/2016 ANAHY HANNA MD Ot Z95. 5 PRESENCE OF CORONARY ANGIOPLASTY IMPLANT 09/13/2016 ANAHY HANNA MD Ot E03. 9 HYPOTHYROIDISM, UNSPECIFIED 09/13/2016 ANAHY HANNA MD Ot E11. 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 5 HYPERLIPIDEMIA, UNSPECIFIED 09/13/2016 ANAHY HANNA MD Ot I12. 9 HYPERTENSIVE CHRONIC KIDNEY DISEASE W ST 09/13/2016 ANAHY HANNA MD Ot I25. 10 ATHSCL HEART DISEASE OF [place] CORONARY 09/13/2016 ANAHY HANNA MD Ot I48. 2 CHRONIC ATRIAL FIBRILLATION 09/13/2016 ANAHY HANNA MD, Ot I50. 32 CHRONIC DIASTOLIC (CONGESTIVE) HEART ASHLI 09/13/2016 ANAHY HANNA MD, Ot J44. 9 CHRONIC OBSTRUCTIVE PULMONARY DISEASE, U 09/13/2016 ANAHY HANNA MD, Ot N18. 4 CHRONIC KIDNEY DISEASE, STAGE 4 (SEVERE) 09/13/2016 ANAHY HANNA MD, Ot R94. 39 ABNORMAL RESULT OF OTHER CARDIOVASCULAR 09/13/2016 ANAHY HANNA MD, Ot Z79. 01 DISTRICT WIRE CHIEF (CURRENT) USE OF ANTICOAGULANT 09/13/2016 ANAHY HANNA MD, Ot Z79.899 OTHER DISTRICT WIRE CHIEF (CURRENT) DRUG THERAPY 09/13/2016 ANAHY HANNA MD, Ot Z85. 3 PERSONAL HISTORY OF MALIGNANT NEOPLASM O 09/13/2016 ANAHY HANNA MD, Ot Z92. 3 PERSONAL HISTORY OF IRRADIATION 09/13/2016 ANAHY HANAN MD, Ot Z95. 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 04/06/2017 YESENIA WILDE Ot M85.88 OTH DISRD OF BONE DENSITY AND STRUCTURE, 04/06/2017 MEHRAN MARQUEZ Ot 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 04/16/2017 COLETTE CROWLEY MD Ot I48.2 CHRONIC ATRIAL FIBRILLATION 04/16/2017 COLETTE CROWLEY MD, Ot Z79.01 ASSISTED (CURRENT) USE OF ANTICOAGULANT 04/27/2017 MEHRAN MARQUEZ Ot 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 05/05/2017 COLETTE CROWLEY MD Ot I48.2 CHRONIC ATRIAL FIBRILLATION 05/05/2017 COLETTE CROWLEY MD, Ot Z79.01 DISTRICT WIRE CHIEF (CURRENT) USE OF ANTICOAGULANT 07/08/2017 COLETTE CROWLEY MD Ot M54.2 CERVICALGIA 07/08/2017 COLETTE CROWLEY MD Ot M62.838 OTHER MUSCLE SPASM 07/21/2017 MEHRAN MARQUEZ Marco Ot Z12.31 ENCNTR SCREEN MAMMOGRAM FOR MALIGNANT NE 07/22/2017 MEHRAN MARQUEZ Ot Z12.31 ENCNTR SCREEN MAMMOGRAM FOR MALIGNANT NE 07/22/2017 MEHRAN MARQUEZ Ot Z85.3 PERSONAL HISTORY OF MALIGNANT NEOPLASM O 08/11/2017 MEHRAN MARQUEZ Ot Z12.31 ENCNTR SCREEN MAMMOGRAM FOR MALIGNANT NE 08/11/2017 MEHRAN MARQUEZ Ot Z85.3 PERSONAL HISTORY OF MALIGNANT NEOPLASM O 08/13/2017 COLETTE CROWLEY MD Ot M54.2 CERVICALGIA 08/13/2017 COLETTE CROWLEY MD Ot M62.838 OTHER MUSCLE SPASM 08/20/2017 COLETTE CROWLEY MD Ot M54.2 CERVICALGIA 08/20/2017 COLETTE CROWLEY MD Ot M62.838 OTHER MUSCLE SPASM 08/31/2017 ANAHY HANNA MD Ot E78. 2 MIXED HYPERLIPIDEMIA 08/31/2017 ANAHY HANNA MD Ot I12. 9 HYPERTENSIVE CHRONIC KIDNEY DISEASE W ST 08/31/2017 ANAHY HANNA MD Ot I25. 10 ATHSCL HEART DISEASE OF [place] CORONARY 08/31/2017 ANAHY HANNA MD Ot I34. 0 NONRHEUMATIC MITRAL (VALVE) INSUFFICIENC 08/31/2017 ANAHY HANNA MD Ot I48. 2 CHRONIC ATRIAL FIBRILLATION 08/31/2017 ANAHY HANNA MD Ot N18. 4 CHRONIC KIDNEY DISEASE, STAGE 4 (SEVERE) 10/05/2017 COLETTE CROWLEY MD Ot M54.2 CERVICALGIA 10/05/2017 COLETTE CROWLEY MD Ot M62.838 OTHER MUSCLE SPASM 10/06/2017 COLETTE CROWLEY MD Ot M54.2 CERVICALGIA 10/06/2017 COLETTE CROWLEY MD Ot M62.838 OTHER MUSCLE SPASM 10/07/2017 Ot 733.90 BON E CARTILAGE DIS NOS 10/07/2017 Ot 427.31 ATR IAL FIBRILLATION 10/07/2017 Ot 733.90 BON E CARTILAGE DIS NOS 10/07/2017 Ot V10.3 HX O F BREAST MALIGNANCY 10/07/2017 Ot V58.61 ANTICOAGULANTS,LT,CURRENT USE 10/07/2017 Ot V58.69 OTH MED,LT,CURRENT USE 10/07/2017 Ot V67.1 RADI OTHERAPY FOLLOW-UP 10/07/2017 Ot 427.31 ATR IAL FIBRILLATION 10/07/2017 Ot V10.3 HX O F BREAST MALIGNANCY 10/07/2017 WILDEYESENIA Tomas S PROFILE MILL OPERATOR TAPE CONTROL Ot 427.31 ATRIAL FIBRILLATION 10/07/2017 WILDE, YESENIA S PROFILE MILL OPERATOR TAPE CONTROL Ot 733.90 BONE CARTILAGE DIS NOS 10/07/2017 WILDE, YESENIA S PROFILE MILL OPERATOR TAPE CONTROL Ot V10.3 HX OF BREAST MALIGNANCY 10/07/2017 WILDEYESENIA Tomas S PROFILE MILL OPERATOR TAPE CONTROL Ot V58.61 ANTICOAGULANTS,LT,CURRENT USE 10/07/2017 WILDEYESENIA Tomas PROFILE MILL OPERATOR TAPE CONTROL Ot V58.69 OTH MED,LT,CURRENT USE 10/07/2017 WILDEYESENIA Tomas S PROFILE MILL OPERATOR TAPE CONTROL Ot V67.1 RADIOTHERAPY FOLLOW-UP 10/07/2017 MIGUEL KAROLINE A PROFILE MILL OPERATOR TAPE CONTROL Ot 244.9 HYPOTHYROIDISM NOS 10/07/2017 RIVERA KAROLINE A PROFILE MILL OPERATOR TAPE CONTROL Ot 397.0 TRICUSPID VALVE DISEASE 10/07/2017 RIVERA KAROLINE A PROFILE MILL OPERATOR TAPE CONTROL Ot 401.9 HYPERTENSION NOS 10/07/2017 RIVERA, KAROLINE A PROFILE MILL OPERATOR TAPE CONTROL Ot 416.8 CHR PULMON HEART DIS NEC 10/07/2017 RIVERA KAROLINE A PROFILE MILL OPERATOR TAPE CONTROL Ot 424.0 MITRAL VALVE DISORDER 10/07/2017 RIVERA KAROLINE A PROFILE MILL OPERATOR TAPE CONTROL Ot 427.31 ATRIAL FIBRILLATION 10/07/2017 RIVERA KAROLINE A PROFILE MILL OPERATOR TAPE CONTROL Ot 780.4 DIZZINESS AND GIDDINESS 10/07/2017 RIVERA KAROLINE A PROFILE MILL OPERATOR TAPE CONTROL Ot 780.79 OTH MALAISE FATIGUE 10/07/2017 RIVERA KAROLINE A PROFILE MILL OPERATOR TAPE CONTROL Ot V58.69 OTH MED,LT,CURRENT USE 10/07/2017 NICHOLAS SOLIZ, VALENTINE Castro Ot 427.31 ATRIAL FIBRILLATION 10/07/2017 WILDEYESENIA Tomas S PROFILE MILL OPERATOR TAPE CONTROL Ot 174.9 MALIGN NEOPL BREAST NOS 10/07/2017 NOREEN SOLIZ, SUZI Krueger Ot V72. 84 EXAM PRE-OPERATIVE NOS 10/07/2017 MEHRAN MARQUEZ Ot 174.9 MALIGN NEOPL BREAST NOS 10/07/2017 MEHRAN MARQUEZ Ot 733.90 BONE CARTILAGE DIS NOS 10/07/2017 MEHRAN MARQUEZ Ot V10.3 HX OF BREAST MALIGNANCY 10/07/2017 NICHOLAS SOLIZ, VALENTINE Castro Ot 719.45 JOINT PAIN-PELVIS 10/07/2017 VALENTINE PETERSON MD Ot 805.2 FX DORSAL VERTEBRA-CLOSE 10/07/2017 VALENTINE PETERSON MD Ot E000.8 OTHER EXTERNAL CAUSE STATUS 10/07/2017 VALENTINE PETERSON MD Ot E888.9 FALL NOS 10/07/2017 YESENIA WILDE S PROFILE MILL OPERATOR TAPE CONTROL Ot 427.31 ATRIAL FIBRILLATION 10/07/2017 YESENIA WILDE S PROFILE MILL OPERATOR TAPE CONTROL Ot 611.72 LUMP OR MASS IN BREAST 10/07/2017 YESENIA WILDE S PROFILE MILL OPERATOR TAPE CONTROL Ot 733.90 BONE CARTILAGE DIS NOS 10/07/2017 YESENIA WILDE S PROFILE MILL OPERATOR TAPE CONTROL Ot V10.3 HX OF BREAST MALIGNANCY 10/07/2017 YESENIA WILDE S PROFILE MILL OPERATOR TAPE CONTROL Ot V58.61 ANTICOAGULANTS,LT,CURRENT USE 10/07/2017 YESENIA WILDE S PROFILE MILL OPERATOR TAPE CONTROL Ot V58.69 OTH MED,LT,CURRENT USE 10/07/2017 YESENIA WILDE S PROFILE MILL OPERATOR TAPE CONTROL Ot V67.1 RADIOTHERAPY FOLLOW-UP 10/07/2017 YESENIA WILDE S PROFILE MILL OPERATOR TAPE CONTROL Ot 174.9 MALIGN NEOPL BREAST NOS 10/07/2017 YESENIA WILDE S PROFILE MILL OPERATOR TAPE CONTROL Ot 611.79 SYMPTOMS IN BREAST NEC 10/07/2017 YESENIA WILDE S PROFILE MILL OPERATOR TAPE CONTROL Ot 785.6 ENLARGEMENT LYMPH NODES 10/07/2017 Ot E78.2 MIXE D HYPERLIPIDEMIA 10/07/2017 Ot I10 ESSENT IAL (PRIMARY) HYPERTENSION 10/07/2017 Ot I48.0 PARO XYSMAL ATRIAL FIBRILLATION 10/07/2017 Ot R06.09 OTH ER FORMS OF DYSPNEA 10/07/2017 Ot E78.2 MIXE D HYPERLIPIDEMIA 10/07/2017 Ot I10 ESSENT IAL (PRIMARY) HYPERTENSION 10/07/2017 Ot I48.0 PARO XYSMAL ATRIAL FIBRILLATION 10/07/2017 Ot R06.09 OTH ER FORMS OF DYSPNEA 10/07/2017 JUANA RAMIREZ MD Ot R22 .0 LOCALIZED SWELLING, MASS AND LUMP, HEAD 10/07/2017 JAMES SOLIZ, JUANA Khan Ot Z01.812 ENCOUNTER FOR PREPROCEDURAL LABORATORY E 10/07/2017 JUANA RAMIREZ MD Ot Z11 .2 ENCOUNTER FOR SCREENING FOR OTHER BACTER 10/07/2017 ANAHY HANNA MD Ot Z48.812 ENCNTR FOR SURGICAL AFTCR FOLLOWING SURG 10/07/2017 ANAHY HANNA MD Ot Z95. 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 10/07/2017 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 Ot N64.59 OTHER SIGNS AND SYMPTOMS IN BREAST 10/07/2017 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 Ot 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 2 MIXED HYPERLIPIDEMIA 10/07/2017 ANAHY HANNA MD Ot I12. 9 HYPERTENSIVE CHRONIC KIDNEY DISEASE W ST 10/07/2017 ANAHY HANNA MD Ot I25. 10 ATHSCL HEART DISEASE OF [place] CORONARY 10/07/2017 ANAHY HANNA MD Ot I48. 2 CHRONIC ATRIAL FIBRILLATION 10/07/2017 ANAHY HANNA MD Ot N18. 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 2 MIXED HYPERLIPIDEMIA 10/07/2017 ANAHY HANNA MD Ot I12. 9 HYPERTENSIVE CHRONIC KIDNEY DISEASE W ST 10/07/2017 ANAHY HANNA MD Ot I25. 10 ATHSCL HEART DISEASE OF [place] CORONARY 10/07/2017 ANAHY HANNA MD Ot I34. 0 NONRHEUMATIC MITRAL (VALVE) INSUFFICIENC 10/07/2017 ANAHY HANNA MD Ot I48. 2 CHRONIC ATRIAL FIBRILLATION 10/07/2017 ANAHY HANNA MD Ot N18. 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 10/07/2017 JUANA HENDERSON MD Ot I89 .0 LYMPHEDEMA, NOT ELSEWHERE CLASSIFIED 10/07/2017 COLETTE CROWLEY MD Ot M54.2 CERVICALGIA 10/07/2017 COLETTE CROWLEY MD Ot M62.838 OTHER MUSCLE SPASM 10/08/2017 Ot 733.90 BON E CARTILAGE DIS NOS 10/08/2017 Ot 427.31 ATR IAL FIBRILLATION 10/08/2017 Ot 733.90 BON E CARTILAGE DIS NOS 10/08/2017 Ot V10.3 HX O F BREAST MALIGNANCY 10/08/2017 Ot V58.61 ANTICOAGULANTS,LT,CURRENT USE 10/08/2017 Ot V58.69 OTH MED,LT,CURRENT USE 10/08/2017 Ot V67.1 RADI OTHERAPY FOLLOW-UP 10/08/2017 Ot 427.31 ATR IAL FIBRILLATION 10/08/2017 Ot V10.3 HX O F BREAST MALIGNANCY 10/08/2017 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 Ot 427.31 ATRIAL FIBRILLATION 10/08/2017 WILDEYESENIA Tomas PROFILE MILL OPERATOR TAPE CONTROL Ot 733.90 BONE CARTILAGE DIS NOS 10/08/2017 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 Ot V10.3 HX OF BREAST MALIGNANCY 10/08/2017 WILDEYESENIA Tomas PROFILE MILL OPERATOR TAPE CONTROL Ot V58.61 ANTICOAGULANTS,LT,CURRENT USE 10/08/2017 WILDEYESENIA Tomas PROFILE MILL OPERATOR TAPE CONTROL Ot V58.69 OTH MED,LT,CURRENT USE 10/08/2017 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 Ot V67.1 RADIOTHERAPY FOLLOW-UP 10/08/2017 RIVERA KAROLINE A PROFILE MILL OPERATOR TAPE CONTROL Ot 244.9 HYPOTHYROIDISM NOS 10/08/2017 RIVERA KAROLINE A PROFILE MILL OPERATOR TAPE CONTROL Ot 397.0 TRICUSPID VALVE DISEASE 10/08/2017 RIVERA KAROLINE A PROFILE MILL OPERATOR TAPE CONTROL Ot 401.9 HYPERTENSION NOS 10/08/2017 RIVERA KAROLINE A PROFILE MILL OPERATOR TAPE CONTROL Ot 416.8 CHR PULMON HEART DIS NEC 10/08/2017 RIVERA KAROLINE A PROFILE MILL OPERATOR TAPE CONTROL Ot 424.0 MITRAL VALVE DISORDER 10/08/2017 RIVERA KAROLINE A PROFILE MILL OPERATOR TAPE CONTROL Ot 427.31 ATRIAL FIBRILLATION 10/08/2017 RIVERA KAROLINE A PROFILE MILL OPERATOR TAPE CONTROL Ot 780.4 DIZZINESS AND GIDDINESS 10/08/2017 RIVERA KAROLINE A PROFILE MILL OPERATOR TAPE CONTROL Ot 780.79 OTH MALAISE FATIGUE 10/08/2017 RIVERA KAROLINE A PROFILE MILL OPERATOR TAPE CONTROL Ot V58.69 OTH MED,LT,CURRENT USE 10/08/2017 VALENTINE PETERSON MD Ot 427.31 ATRIAL FIBRILLATION 10/08/2017 ANDRY YESENIA Tomas PROFILE MILL OPERATOR TAPE CONTROL Ot 174.9 MALIGN NEOPL BREAST NOS 10/08/2017 NOREEN SOLIZ, SUZI Krueger Ot V72. 84 EXAM PRE-OPERATIVE NOS 10/08/2017 MEHRAN MARQUEZ Ot 174.9 MALIGN NEOPL BREAST NOS 10/08/2017 MEHRAN MARQUEZ Ot 733.90 BONE CARTILAGE DIS NOS 10/08/2017 MEHRAN MARQUEZ Ot V10.3 HX OF BREAST MALIGNANCY 10/08/2017 VALENTINE PETERSON MD Ot 719.45 JOINT PAIN-PELVIS 10/08/2017 VALENTINE PETERSON MD Ot 805.2 FX DORSAL VERTEBRA-CLOSE 10/08/2017 NICHOLAS SOLIZ, VALENTINE Castro Ot E000.8 OTHER EXTERNAL CAUSE STATUS 10/08/2017 VALENTINE PETERSON MD Ot E888.9 FALL NOS 10/08/2017 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 Ot 427.31 ATRIAL FIBRILLATION 10/08/2017 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 Ot 611.72 LUMP OR MASS IN BREAST 10/08/2017 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 Ot 733.90 BONE CARTILAGE DIS NOS 10/08/2017 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 Ot V10.3 HX OF BREAST MALIGNANCY 10/08/2017 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 Ot V58.61 ANTICOAGULANTS,LT,CURRENT USE 10/08/2017 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 Ot V58.69 OTH MED,LT,CURRENT USE 10/08/2017 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 Ot V67.1 RADIOTHERAPY FOLLOW-UP 10/08/2017 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 Ot 174.9 MALIGN NEOPL BREAST NOS 10/08/2017 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 Ot 611.79 SYMPTOMS IN BREAST NEC 10/08/2017 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 Ot 785.6 ENLARGEMENT LYMPH NODES 10/08/2017 Ot E78.2 MIXE D HYPERLIPIDEMIA 10/08/2017 Ot I10 ESSENT IAL (PRIMARY) HYPERTENSION 10/08/2017 Ot I48.0 PARO XYSMAL ATRIAL FIBRILLATION 10/08/2017 Ot R06.09 OTH ER FORMS OF DYSPNEA 10/08/2017 Ot E78.2 MIXE D HYPERLIPIDEMIA 10/08/2017 Ot I10 ESSENT IAL (PRIMARY) HYPERTENSION 10/08/2017 Ot I48.0 PARO XYSMAL ATRIAL FIBRILLATION 10/08/2017 Ot R06.09 OTH ER FORMS OF DYSPNEA 10/08/2017 JUANA RAMIREZ MD Ot R22 .0 LOCALIZED SWELLING, MASS AND LUMP, HEAD 10/08/2017 JUANA RAMIREZ MD Ot Z01.812 ENCOUNTER FOR PREPROCEDURAL LABORATORY E 10/08/2017 JUANA RAMIREZ MD Ot Z11 .2 ENCOUNTER FOR SCREENING FOR OTHER BACTER 10/08/2017 ANAHY HANNA MD Ot Z48.812 ENCNTR FOR SURGICAL AFTCR FOLLOWING SURG 10/08/2017 ANAHY HANNA MD Ot Z95. 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 10/08/2017 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 Ot N64.59 OTHER SIGNS AND SYMPTOMS IN BREAST 10/08/2017 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 Ot 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 2 MIXED HYPERLIPIDEMIA 10/08/2017 ANAHY HANNA MD Ot I12. 9 HYPERTENSIVE CHRONIC KIDNEY DISEASE W ST 10/08/2017 ANAHY HANNA MD Ot I25. 10 ATHSCL HEART DISEASE OF [place] CORONARY 10/08/2017 ANAHY HANNA MD Ot I48. 2 CHRONIC ATRIAL FIBRILLATION 10/08/2017 ANAHY HANNA MD Ot N18. 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 2 MIXED HYPERLIPIDEMIA 10/08/2017 ANAHY HANNA MD Ot I12. 9 HYPERTENSIVE CHRONIC KIDNEY DISEASE W ST 10/08/2017 ANAHY HANNA MD Ot I25. 10 ATHSCL HEART DISEASE OF [place] CORONARY 10/08/2017 ANAHY HANNA MD Ot I34. 0 NONRHEUMATIC MITRAL (VALVE) INSUFFICIENC 10/08/2017 ANAHY HANNA MD Ot I48. 2 CHRONIC ATRIAL FIBRILLATION 10/08/2017 ANAHY HANNA MD Ot N18. 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 10/08/2017 JUANA HENDERSON MD Ot I89 .0 LYMPHEDEMA, NOT ELSEWHERE CLASSIFIED 10/08/2017 COLETTE CROWLEY MD Ot M54.2 CERVICALGIA 10/08/2017 COLETTE CROWLEY MD Ot M62.838 OTHER MUSCLE SPASM 10/12/2017 JUANA HENDERSON MD Ot I50 .9 HEART FAILURE, UNSPECIFIED 10/12/2017 JUANA HENDERSON MD Ot I87.323 CHRONIC VENOUS HTN W INFLAMMATION OF BARBER 10/12/2017 JUANA HENDERSON MD Ot I89 .0 LYMPHEDEMA, NOT ELSEWHERE CLASSIFIED 10/22/2017 JUANA HENDERSON MD Ot I50 .9 HEART FAILURE, UNSPECIFIED 10/22/2017 JUANA HENDERSON MD Ot I70.203 [place] ATHSCL [place] ARTERIES OF [facility] 10/22/2017 JUANA HENDERSON MD Ot I87.323 CHRONIC VENOUS HTN W INFLAMMATION OF BARBER 10/22/2017 JUANA HENDERSON MD Ot I89 .0 LYMPHEDEMA, NOT ELSEWHERE CLASSIFIED 10/29/2017 JUANA HENDERSON MD Ot I50 .9 HEART FAILURE, UNSPECIFIED 10/29/2017 SANTIAGO SOLIZ, JUANA Hickey Ot I87.323 CHRONIC VENOUS HTN W INFLAMMATION OF BARBER 10/29/2017 SANTIAGO SOLIZ, JUANA Hickey Ot I89 .0 LYMPHEDEMA, NOT ELSEWHERE CLASSIFIED 04/04/2018 WILDEYESENIA Tomas S PROFILE MILL OPERATOR TAPE CONTROL Ot 427.31 ATRIAL FIBRILLATION 04/04/2018 YESENIA WILDE S PROFILE MILL OPERATOR TAPE CONTROL Ot 733.90 BONE CARTILAGE DIS NOS 04/04/2018 WILDEYESENIA Tomas S PROFILE MILL OPERATOR TAPE CONTROL Ot V10.3 HX OF BREAST MALIGNANCY 04/04/2018 WILDE, HILAH S PROFILE MILL OPERATOR TAPE CONTROL Ot V58.61 ANTICOAGULANTS,LT,CURRENT USE 04/04/2018 WILDEKAVITAAH S PROFILE MILL OPERATOR TAPE CONTROL Ot V58.69 OTH MED,LT,CURRENT USE 04/04/2018 WILDE, HILAH S PROFILE MILL OPERATOR TAPE CONTROL Ot V67.1 RADIOTHERAPY FOLLOW-UP 04/04/2018 KAROLINE RIVERA A PROFILE MILL OPERATOR TAPE CONTROL Ot 244.9 HYPOTHYROIDISM NOS 04/04/2018 RIVERA KAROLINE A PROFILE MILL OPERATOR TAPE CONTROL Ot 397.0 TRICUSPID VALVE DISEASE 04/04/2018 RIVERA KAROLINE A PROFILE MILL OPERATOR TAPE CONTROL Ot 401.9 HYPERTENSION NOS 04/04/2018 RIVERA, KAROLINE A PROFILE MILL OPERATOR TAPE CONTROL Ot 416.8 CHR PULMON HEART DIS NEC 04/04/2018 RIVERA KAROLINE A PROFILE MILL OPERATOR TAPE CONTROL Ot 424.0 MITRAL VALVE DISORDER 04/04/2018 RIVERA KAROLINE A PROFILE MILL OPERATOR TAPE CONTROL Ot 427.31 ATRIAL FIBRILLATION 04/04/2018 RIVERA, KAROLINE A PROFILE MILL OPERATOR TAPE CONTROL Ot 780.4 DIZZINESS AND GIDDINESS 04/04/2018 RIVERA, KAROLINE A PROFILE MILL OPERATOR TAPE CONTROL Ot 780.79 OTH MALAISE FATIGUE 04/04/2018 RIVERA KAROLINE A PROFILE MILL OPERATOR TAPE CONTROL Ot V58.69 OTH MED,LT,CURRENT USE 04/04/2018 NICHOLAS SOLIZ, VALENTINE Castro Ot 427.31 ATRIAL FIBRILLATION 04/04/2018 YESENIA WILDE S PROFILE MILL OPERATOR TAPE CONTROL Ot 174.9 MALIGN NEOPL BREAST NOS 04/04/2018 NOREEN SOLIZ, SUZI Krueger Ot V72. 84 EXAM PRE-OPERATIVE NOS 04/04/2018 MEHRAN MARQUEZ Ot 174.9 MALIGN NEOPL BREAST NOS 04/04/2018 MEHRAN MARQUEZ Ot 733.90 BONE CARTILAGE DIS NOS 04/04/2018 MEHRAN MARQUEZ Ot V10.3 HX OF BREAST MALIGNANCY 04/04/2018 VALENTINE PETERSON MD Ot 719.45 JOINT PAIN-PELVIS 04/04/2018 VALENTINE PETERSON MD Ot 805.2 FX DORSAL VERTEBRA-CLOSE 04/04/2018 VALENTINE PETERSON MD Ot E000.8 OTHER EXTERNAL CAUSE STATUS 04/04/2018 VALENTINE PETERSON MD Ot E888.9 FALL NOS 04/04/2018 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 Ot 427.31 ATRIAL FIBRILLATION 04/04/2018 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 Ot 611.72 LUMP OR MASS IN BREAST 04/04/2018 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 Ot 733.90 BONE CARTILAGE DIS NOS 04/04/2018 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 Ot V10.3 HX OF BREAST MALIGNANCY 04/04/2018 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 Ot V58.61 ANTICOAGULANTS,LT,CURRENT USE 04/04/2018 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 Ot V58.69 OTH MED,LT,CURRENT USE 04/04/2018 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 Ot V67.1 RADIOTHERAPY FOLLOW-UP 04/04/2018 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 Ot 174.9 MALIGN NEOPL BREAST NOS 04/04/2018 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 Ot 611.79 SYMPTOMS IN BREAST NEC 04/04/2018 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 Ot 785.6 ENLARGEMENT LYMPH NODES 04/04/2018 Ot E78.2 MIXE D HYPERLIPIDEMIA 04/04/2018 Ot I10 ESSENT IAL (PRIMARY) HYPERTENSION 04/04/2018 Ot I48.0 PARO XYSMAL ATRIAL FIBRILLATION 04/04/2018 Ot R06.09 OTH ER FORMS OF DYSPNEA 04/04/2018 Ot E78.2 MIXE D HYPERLIPIDEMIA 04/04/2018 Ot I10 ESSENT IAL (PRIMARY) HYPERTENSION 04/04/2018 Ot I48.0 PARO XYSMAL ATRIAL FIBRILLATION 04/04/2018 Ot R06.09 OTH ER FORMS OF DYSPNEA 04/04/2018 JUANA RAMIREZ MD Ot R22 .0 LOCALIZED SWELLING, MASS AND LUMP, HEAD 04/04/2018 JAMES SOLIZ, JUANA Khan Ot Z01.812 ENCOUNTER FOR PREPROCEDURAL LABORATORY E 04/04/2018 JUANA RAMIREZ MD Ot Z11 .2 ENCOUNTER FOR SCREENING FOR OTHER BACTER 04/04/2018 ANAHY HANNA MD Ot Z48.812 ENCNTR FOR SURGICAL AFTCR FOLLOWING SURG 04/04/2018 ANAHY HANNA MD Ot Z95. 5 PRESENCE OF CORONARY ANGIOPLASTY IMPLANT 04/04/2018 MEHRAN MARQUEZ Ot I48.91 UNSPECIFIED ATRIAL FIBRILLATION 04/04/2018 MEHRAN MARQUEZ Ot Z09 ENCNTR FOR F/U EXAM AFT TRTMT FOR COND O 04/04/2018 JIMMY MEHRAN Lara Ot Z79.01 DISTRICT WIRE CHIEF (CURRENT) USE OF ANTICOAGULANT 04/04/2018 JIMMYMEHRAN Ot Z79.899 OTHER ASSISTED (CURRENT) DRUG THERAPY 04/04/2018 MEHRAN MARQUEZ Ot Z85.3 PERSONAL HISTORY OF MALIGNANT NEOPLASM O 04/04/2018 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 Ot 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 04/04/2018 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 Ot N64.59 OTHER SIGNS AND SYMPTOMS IN BREAST 04/04/2018 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 Ot 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 04/04/2018 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 Ot M85.88 OTH DISRD OF BONE DENSITY AND STRUCTURE, 04/04/2018 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 Ot 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 04/04/2018 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 Ot N64.59 OTHER SIGNS AND SYMPTOMS IN BREAST 04/04/2018 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 Ot R92.8 OTH ABN AND INCONCLUSIVE FINDINGS ON DX 04/04/2018 ANAHY HANNA MD Ot E78. 2 MIXED HYPERLIPIDEMIA 04/04/2018 ANAHY HANNA MD Ot I12. 9 HYPERTENSIVE CHRONIC KIDNEY DISEASE W ST 04/04/2018 ANAHY HANNA MD Ot I25. 10 ATHSCL HEART DISEASE OF [place] CORONARY 04/04/2018 ANAHY HANNA MD Ot I48. 2 CHRONIC ATRIAL FIBRILLATION 04/04/2018 ANAHY HANNA MD Ot N18. 4 CHRONIC KIDNEY DISEASE, STAGE 4 (SEVERE) 04/04/2018 MEHRAN MARQUEZ Ot 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 04/04/2018 COLETTE CROWLEY MD Ot I48.2 CHRONIC ATRIAL FIBRILLATION 04/04/2018 COLETTE CROWLEY MD Ot Z79.01 DISTRICT WIRE CHIEF (CURRENT) USE OF ANTICOAGULANT 04/04/2018 ANAHY HANNA MD Ot E78. 2 MIXED HYPERLIPIDEMIA 04/04/2018 ANAHY HANNA MD Ot I12. 9 HYPERTENSIVE CHRONIC KIDNEY DISEASE W ST 04/04/2018 ANAHY HANNA MD Ot I25. 10 ATHSCL HEART DISEASE OF [place] CORONARY 04/04/2018 ANAHY HANNA MD Ot I34. 0 NONRHEUMATIC MITRAL (VALVE) INSUFFICIENC 04/04/2018 ANAHY HANNA MD, Ot I48. 2 CHRONIC ATRIAL FIBRILLATION 04/04/2018 ANAHY HANNA MD Ot N18. 4 CHRONIC KIDNEY DISEASE, STAGE 4 (SEVERE) 04/04/2018 MEHRAN MARQUEZ Ot Z12.31 ENCNTR SCREEN MAMMOGRAM FOR MALIGNANT NE 04/04/2018 MEHRAN MARQUEZ Ot Z85.3 PERSONAL HISTORY OF MALIGNANT NEOPLASM O 04/04/2018 JUANA HENDERSON MD Ot I50 .9 HEART FAILURE, UNSPECIFIED 04/04/2018 JUANA HENDERSON MD Ot I70.203 [place]SP ATHSCL [place] ARTERIES OF EXTREMITI 04/04/2018 JUANA HENDERSON MD Ot I87.323 CHRONIC VENOUS HTN W INFLAMMATION OF BARBER 04/04/2018 JUANA HENDERSON MD Ot I89 .0 LYMPHEDEMA, NOT ELSEWHERE CLASSIFIED 04/04/2018 JUANA HENDERSON MD Ot I50 .9 HEART FAILURE, UNSPECIFIED 04/04/2018 JUANA HENDERSON MD Ot I87.323 CHRONIC VENOUS HTN W INFLAMMATION OF BARBER 04/04/2018 JUANA HENDERSON MD Ot I89 .0 LYMPHEDEMA, NOT ELSEWHERE CLASSIFIED 04/06/2018 COLETTE CROWLEY MD Ot M54.2 CERVICALGIA 04/06/2018 COLETTE CROWLEY MD Ot M62.838 OTHER MUSCLE SPASM 04/08/2018 COLETTE CROWLEY MD Ot Z29.8 ENCOUNTER FOR OTHER SPECIFIED PROPHYLACT 04/26/2018 MEHRAN MARQUEZ Ot Z85.3 PERSONAL HISTORY OF MALIGNANT NEOPLASM O 06/09/2018 COLETTE CROWLEY MD Ot Z29.8 ENCOUNTER FOR OTHER SPECIFIED PROPHYLACT 06/13/2018 COLETTE CROWLEY MD Ot Z29.8 ENCOUNTER FOR OTHER SPECIFIED PROPHYLACT 07/05/2018 COLETTE CROWLEY MD Ot B96.1 KLEBSIELLA PNEUMONIAE THE CAUSE OF DI 07/05/2018 COLETTE CROWLEY MD Ot D72.823 LEUKEMOID REACTION 07/05/2018 COLETTE CROWLEY MD Ot E03.9 HYPOTHYROIDISM, UNSPECIFIED 07/05/2018 COLETTE CROWLEY MD Ot E78.5 HYPERLIPIDEMIA, UNSPECIFIED 07/05/2018 COLETTE CROWLEY MD Ot G47.30 SLEEP APNEA, UNSPECIFIED 07/05/2018 COLETTE CROWLEY MD Ot I1 0 ESSENTIAL (PRIMARY) HYPERTENSION 07/05/2018 COLETTE CROWLEY MD Ot I25.10 ATHSCL HEART DISEASE OF [place] CORONARY 07/05/2018 COLETTE CROWLEY MD Ot K57.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 07/05/2018 COLETTE CROWLEY MD Ot M54.9 DORSALGIA, UNSPECIFIED 07/05/2018 COLETTE CROWLEY MD Ot M81.0 AGE-RELATED OSTEOPOROSIS W/O CURRENT PAT 07/05/2018 COLETTE CROWLEY MD Ot N39.0 URINARY TRACT INFECTION, SITE NOT SPECIF 07/05/2018 COLETTE CROWLEY MD Ot R09.02 HYPOXEMIA 07/05/2018 COLETTE CROWLEY MD Ot R79.1 ABNORMAL COAGULATION PROFILE 07/05/2018 COLETTE CROWLEY MD Ot Z79.01 DISTRICT WIRE CHIEF (CURRENT) USE OF ANTICOAGULANT 07/05/2018 COLETTE CROWLEY MD Ot Z85.3 PERSONAL HISTORY OF MALIGNANT NEOPLASM O 07/05/2018 COLETTE CROWLEY MD Ot Z86.010 PERSONAL HISTORY OF COLONIC POLYPS 07/05/2018 COLETTE CROWLEY MD Ot Z86.718 PERSONAL HISTORY OF OTHER VENOUS THROMBO 07/05/2018 COLETTE CROWLEY MD Ot Z87.442 PERSONAL HISTORY OF URINARY CALCULI 07/05/2018 COLETTE CROWLEY MD Ot Z87.891 PERSONAL HISTORY OF NICOTINE DEPENDENCE 07/05/2018 COLETTE CROWLEY MD Ot Z88.2 ALLERGY STATUS TO SULFONAMIDES STATUS 07/05/2018 COLETTE CROWLEY MD Ot Z90.81 ACQUIRED ABSENCE OF SPLEEN 07/05/2018 COLETTE CROWLEY MD Ot Z99.81 DEPENDENCE ON SUPPLEMENTAL OXYGEN 07/11/2018 COLETTE CROWLEY MD Ot Z29.8 ENCOUNTER FOR OTHER SPECIFIED PROPHYLACT 08/10/2018 COLETTE CROWLEY MD Ot Z29.8 ENCOUNTER FOR OTHER SPECIFIED PROPHYLACT 08/17/2018 YESENIA WILDE Ot 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 08/17/2018 YESENIA WILDE Ot Z12.31 ENCNTR SCREEN MAMMOGRAM FOR MALIGNANT NE 08/24/2018 ANAHY HANNA MD Ot Z48.812 ENCNTR FOR SURGICAL AFTCR FOLLOWING SURG 08/24/2018 ANAHY HANNA MD Ot Z95. 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 0 BENIGN NEOPLASM OF CECUM 08/30/2018 GIO HADDAD DO Ot D69. 6 THROMBOCYTOPENIA, UNSPECIFIED 08/30/2018 GIO HADDAD DO Ot E03. 9 HYPOTHYROIDISM, UNSPECIFIED 08/30/2018 GIO HADDAD DO Ot E78. 5 HYPERLIPIDEMIA, UNSPECIFIED 08/30/2018 GIO HADDAD DO Ot G47. 33 OBSTRUCTIVE SLEEP APNEA (ADULT) (PEDIATR 08/30/2018 GIO HADDAD DO Ot I08. 1 RHEUMATIC DISORDERS OF BOTH MITRAL AND T 08/30/2018 GIO HADDAD DO Ot I12. 9 HYPERTENSIVE CHRONIC KIDNEY DISEASE W ST 08/30/2018 GIO HADDAD DO Ot I25. 10 ATHSCL HEART DISEASE OF [place] CORONARY 08/30/2018 GIO HADDAD DO Ot I48. 91 UNSPECIFIED ATRIAL FIBRILLATION 08/30/2018 GIO HADDAD DO Ot K57. 30 DVRTCLOS OF LG INT W/O PERFORATION OR AB 08/30/2018 GIO HADDAD DO Ot K63. 5 POLYP OF COLON 08/30/2018 GIO HADDAD DO Ot L98. 9 DISORDER OF THE SKIN AND SUBCUTANEOUS TI 08/30/2018 GIO HADDAD DO Ot N18. 4 CHRONIC KIDNEY DISEASE, STAGE 4 (SEVERE) 08/30/2018 GIO HADDAD DO Ot Z79. 01 ASSISTED (CURRENT) USE OF ANTICOAGULANT 08/30/2018 GIO HADDAD DO Ot Z79. 82 ASSISTED (CURRENT) USE OF ASPIRIN 08/30/2018 GIO HADDAD DO Ot Z79.899 OTHER DISTRICT WIRE CHIEF (CURRENT) DRUG THERAPY 08/30/2018 GIO HADDAD DO Ot Z85. 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 0 BENIGN NEOPLASM OF CECUM 09/06/2018 GIO HADDAD DO Ot D69. 6 THROMBOCYTOPENIA, UNSPECIFIED 09/06/2018 GIO HADDAD DO Ot E03. 9 HYPOTHYROIDISM, UNSPECIFIED 09/06/2018 GIO HADDAD DO Ot E78. 5 HYPERLIPIDEMIA, UNSPECIFIED 09/06/2018 GIO HADDAD DO Ot G47. 33 OBSTRUCTIVE SLEEP APNEA (ADULT) (PEDIATR 09/06/2018 IGO HADDAD DO Ot I08. 1 RHEUMATIC DISORDERS OF BOTH MITRAL AND T 09/06/2018 GIO HADDAD DO Ot I12. 9 HYPERTENSIVE CHRONIC KIDNEY DISEASE W ST 09/06/2018 GIO HADDAD DO Ot I25. 10 ATHSCL HEART DISEASE OF [place] CORONARY 09/06/2018 GIO HADDAD DO Ot I48. 91 UNSPECIFIED ATRIAL FIBRILLATION 09/06/2018 GIO HADDAD DO Ot K57. 30 DVRTCLOS OF LG INT W/O PERFORATION OR AB 09/06/2018 GIO HADDAD DO Ot N18. 4 CHRONIC KIDNEY DISEASE, STAGE 4 (SEVERE) 09/06/2018 GIO HADDAD DO Ot Z79. 01 DISTRICT WIRE CHIEF (CURRENT) USE OF ANTICOAGULANT 09/06/2018 GIO HADDAD DO Ot Z79. 82 ASSISTED (CURRENT) USE OF ASPIRIN 09/06/2018 GIO HADDAD DO Ot Z79.899 OTHER ASSISTED (CURRENT) DRUG THERAPY 09/06/2018 GIO HADDAD DO Ot Z85. 3 PERSONAL HISTORY OF MALIGNANT NEOPLASM O 09/06/2018 GIO HADDAD DO Ot Z87.891 PERSONAL HISTORY OF NICOTINE DEPENDENCE 09/14/2018 COLETTE CROWLEY MD Ot Z29.8 ENCOUNTER FOR OTHER SPECIFIED PROPHYLACT 10/19/2018 COLETTE CROWLEY MD Ot Z29.8 ENCOUNTER FOR OTHER SPECIFIED PROPHYLACT 10/20/2018 COLETTE CROWLEY MD Ot Z29.8 ENCOUNTER FOR OTHER SPECIFIED PROPHYLACT 10/20/2018 COLETTE CROWLEY MD Ot Z29.8 ENCOUNTER FOR OTHER SPECIFIED PROPHYLACT 10/26/2018 ANAHY HANNA MD Ot Z48.812 ENCNTR FOR SURGICAL AFTCR FOLLOWING SURG 10/26/2018 ANAHY HANNA MD Ot Z95. 5 PRESENCE OF CORONARY ANGIOPLASTY IMPLANT 10/27/2018 GIO HADDAD DO Ot Z01.818 ENCOUNTER FOR OTHER PREPROCEDURAL EXAMIN 10/28/2018 GIO HADDAD DO Ot D69. 6 THROMBOCYTOPENIA, UNSPECIFIED 10/28/2018 GIO HADDAD DO Ot E03. 9 HYPOTHYROIDISM, UNSPECIFIED 10/28/2018 GIO HADDAD DO Ot E78. 5 HYPERLIPIDEMIA, UNSPECIFIED 10/28/2018 GIO HADDAD DO Ot I08. 1 RHEUMATIC DISORDERS OF BOTH MITRAL AND T 10/28/2018 GIO HADDAD DO Ot I12. 9 HYPERTENSIVE CHRONIC KIDNEY DISEASE W ST 10/28/2018 GIO HADDAD DO Ot I25. 10 ATHSCL HEART DISEASE OF [place] CORONARY 10/28/2018 GIO HADDAD DO Ot I48. 91 UNSPECIFIED ATRIAL FIBRILLATION 10/28/2018 GIO HADDAD DO Ot L57. 0 ACTINIC KERATOSIS 10/28/2018 GIO HADDAD DO Ot N18. 4 CHRONIC KIDNEY DISEASE, STAGE 4 (SEVERE) 10/28/2018 GIO HADDAD DO Ot Z79. 01 ASSISTED (CURRENT) USE OF ANTICOAGULANT 10/28/2018 GIO HADDAD DO Ot Z79. 82 ASSISTED (CURRENT) USE OF ASPIRIN 10/28/2018 GIO HADDAD DO Ot Z79.899 OTHER DISTRICT WIRE CHIEF (CURRENT) DRUG THERAPY 10/28/2018 GIO HADDAD DO Ot Z85. 3 PERSONAL HISTORY OF MALIGNANT NEOPLASM O 10/28/2018 GIO HADDAD DO Ot Z85.828 PERSONAL HISTORY OF OTHER MALIGNANT NEOP 10/28/2018 GIO HADDAD DO Ot Z86.718 PERSONAL HISTORY OF OTHER VENOUS THROMBO 10/28/2018 GIO HADDAD DO Ot Z87.891 PERSONAL HISTORY OF NICOTINE DEPENDENCE 10/28/2018 GIO HADDAD DO Ot Z95. 5 PRESENCE OF CORONARY ANGIOPLASTY IMPLANT 11/02/2018 GIO HADDAD DO Ot D69. 6 THROMBOCYTOPENIA, UNSPECIFIED 11/02/2018 GIO HADDAD DO Ot E03. 9 HYPOTHYROIDISM, UNSPECIFIED 11/02/2018 GIO HADDAD DO Ot E78. 5 HYPERLIPIDEMIA, UNSPECIFIED 11/02/2018 GIO HADDAD DO Ot I08. 1 RHEUMATIC DISORDERS OF BOTH MITRAL AND T 11/02/2018 GIO HADDAD DO Ot I12. 9 HYPERTENSIVE CHRONIC KIDNEY DISEASE W ST 11/02/2018 GIO HADDAD DO Ot I25. 10 ATHSCL HEART DISEASE OF [place] CORONARY 11/02/2018 GIO HADDAD DO Ot I48. 91 UNSPECIFIED ATRIAL FIBRILLATION 11/02/2018 GIO HADDAD DO Ot L57. 0 ACTINIC KERATOSIS 11/02/2018 GIO HADDAD DO Ot N18. 4 CHRONIC KIDNEY DISEASE, STAGE 4 (SEVERE) 11/02/2018 GIO HADDAD DO Ot Z79. 01 ASSISTED (CURRENT) USE OF ANTICOAGULANT 11/02/2018 GIO HADDAD DO Ot Z79. 82 DISTRICT WIRE CHIEF (CURRENT) USE OF ASPIRIN 11/02/2018 GIO HADDAD DO Ot Z79.899 OTHER ASSISTED (CURRENT) DRUG THERAPY 11/02/2018 GIO HADDAD DO Ot Z85. 3 PERSONAL HISTORY OF MALIGNANT NEOPLASM O 11/02/2018 GIO HADDAD DO Ot Z85.828 PERSONAL HISTORY OF OTHER MALIGNANT NEOP 11/02/2018 GIO HADDAD DO Ot Z86.718 PERSONAL HISTORY OF OTHER VENOUS THROMBO 11/02/2018 GIO AHDDAD DO Ot Z87.891 PERSONAL HISTORY OF NICOTINE DEPENDENCE 11/02/2018 GIO HADDAD DO Ot Z95. 5 PRESENCE OF CORONARY ANGIOPLASTY IMPLANT 11/04/2018 GIO HADDAD DO Ot D69. 6 THROMBOCYTOPENIA, UNSPECIFIED 11/04/2018 GIO HADDAD DO Ot E03. 9 HYPOTHYROIDISM, UNSPECIFIED 11/04/2018 GIO HADDAD DO Ot E78. 5 HYPERLIPIDEMIA, UNSPECIFIED 11/04/2018 GIO HADDAD DO Ot I08. 1 RHEUMATIC DISORDERS OF BOTH MITRAL AND T 11/04/2018 GIO HADDAD DO Ot I12. 9 HYPERTENSIVE CHRONIC KIDNEY DISEASE W ST 11/04/2018 GIO HADDAD DO Ot I25. 10 ATHSCL HEART DISEASE OF [place] CORONARY 11/04/2018 GIO HADDAD DO Ot I48. 91 UNSPECIFIED ATRIAL FIBRILLATION 11/04/2018 GIO HADDAD DO Ot L57. 0 ACTINIC KERATOSIS 11/04/2018 HADDAD GIO RIVAS Ot N18. 4 CHRONIC KIDNEY DISEASE, STAGE 4 (SEVERE) 11/04/2018 GIO HADDAD DO Ot Z79. 01 DISTRICT WIRE CHIEF (CURRENT) USE OF ANTICOAGULANT 11/04/2018 GIO HADDAD DO Ot Z79. 82 DISTRICT WIRE CHIEF (CURRENT) USE OF ASPIRIN 11/04/2018 GIO HADDAD DO Ot Z79.899 OTHER ASSISTED (CURRENT) DRUG THERAPY 11/04/2018 GIO HADDAD DO Ot Z85. 3 PERSONAL HISTORY OF MALIGNANT NEOPLASM O 11/04/2018 GIO HADDAD DO Ot Z85.828 PERSONAL HISTORY OF OTHER MALIGNANT NEOP 11/04/2018 GIO HADDAD DO Ot Z86.718 PERSONAL HISTORY OF OTHER VENOUS THROMBO 11/04/2018 HADDAD GIO RIVAS Ot Z87.891 PERSONAL HISTORY OF NICOTINE DEPENDENCE 11/04/2018 GIO HADDAD DO Ot Z95. 5 PRESENCE OF CORONARY ANGIOPLASTY IMPLANT 11/04/2018 ANAHY HANNA MD Ot E78. 5 HYPERLIPIDEMIA, UNSPECIFIED 11/04/2018 ANAHY HANNA MD Ot I10 ESSENTIAL (PRIMARY) HYPERTENSION 11/04/2018 ANAHY HANNA MD Ot I25. 10 ATHSCL HEART DISEASE OF [place] CORONARY 11/04/2018 ANAHY HANNA MD Ot R06. 09 OTHER FORMS OF DYSPNEA 11/09/2018 ANAHY HANNA MD Ot E03. 9 HYPOTHYROIDISM, UNSPECIFIED 11/09/2018 ANAHY HANNA MD Ot E78. 5 HYPERLIPIDEMIA, UNSPECIFIED 11/09/2018 ANAHY HANNA MD Ot G47. 33 OBSTRUCTIVE SLEEP APNEA (ADULT) (PEDIATR 11/09/2018 ANAHY HANNA MD Ot I08. 1 RHEUMATIC DISORDERS OF BOTH MITRAL AND T 11/09/2018 ANAHY HANNA MD Ot I12. 9 HYPERTENSIVE CHRONIC KIDNEY DISEASE W ST 11/09/2018 ANAHY HANNA MD Ot I25. 10 ATHSCL HEART DISEASE OF [place] CORONARY 11/09/2018 ANAHY HANNA MD Ot I27. 20 PULMONARY HYPERTENSION, UNSPECIFIED 11/09/2018 ANAHY HANNA MD Ot I48. 0 PAROXYSMAL ATRIAL FIBRILLATION 11/09/2018 ANAHY HANNA MD Ot I65. 23 OCCLUSION AND STENOSIS OF BILATERAL [place] 11/09/2018 ANAHY HANNA MD, Ot J44. 9 CHRONIC OBSTRUCTIVE PULMONARY DISEASE, U 11/09/2018 ANAHY HANNA MD Ot M85. 80 OT DISRD OF BONE DENSITY AND STRUCTURE, 11/09/2018 ANAHY HANNA MD Ot N18. 4 CHRONIC KIDNEY DISEASE, STAGE 4 (SEVERE) 11/09/2018 ANAHY HANNA MD Ot R60. 9 EDEMA, UNSPECIFIED 11/09/2018 ANAHY HANNA MD Ot Z79. 01 DISTRICT WIRE CHIEF (CURRENT) USE OF ANTICOAGULANT 11/09/2018 ANAHY HANNA MD Ot Z79. 82 ASSISTED (CURRENT) USE OF ASPIRIN 11/09/2018 ANAHY HANNA MD Ot Z79.899 OTHER ASSISTED (CURRENT) DRUG THERAPY 11/09/2018 ANAHY HANNA MD Ot Z85. 3 PERSONAL HISTORY OF MALIGNANT NEOPLASM O 11/09/2018 ANAHY HANNA MD Ot Z87.891 PERSONAL HISTORY OF NICOTINE DEPENDENCE 11/09/2018 ANAHY HANNA MD Ot Z88. 2 ALLERGY STATUS TO SULFONAMIDES STATUS 11/09/2018 ANAHY HANNA MD Ot Z96.653 PRESENCE OF ARTIFICIAL KNEE JOINT, BILAT 11/16/2018 ANAHY HANNA MD Ot E03. 9 HYPOTHYROIDISM, UNSPECIFIED 11/16/2018 ANAHY HANNA MD, Ot E78. 5 HYPERLIPIDEMIA, UNSPECIFIED 11/16/2018 ANAHY HANNA MD Ot G47. 33 OBSTRUCTIVE SLEEP APNEA (ADULT) (PEDIATR 11/16/2018 ANAHY HANNA MD Ot I08. 1 RHEUMATIC DISORDERS OF BOTH MITRAL AND T 11/16/2018 ANAHY HANNA MD, Ot I12. 9 HYPERTENSIVE CHRONIC KIDNEY DISEASE W ST 11/16/2018 ANAHY HANNA MD Ot I25. 10 ATHSCL HEART DISEASE OF [place] CORONARY 11/16/2018 ANAHY HANNA MD, Ot I27. 20 PULMONARY HYPERTENSION, UNSPECIFIED 11/16/2018 ANAHY HANNA MD Ot I48. 0 PAROXYSMAL ATRIAL FIBRILLATION 11/16/2018 ANAHY HANNA MD Ot I65. 23 OCCLUSION AND STENOSIS OF [place]ILATERAL [place] 11/16/2018 ANAHY HANNA MD, Ot J44. 9 CHRONIC OBSTRUCTIVE PULMONARY DISEASE, U 11/16/2018 ANAHY HANNA MD Ot M85. 80 OTH DISRD OF BONE DENSITY AND STRUCTURE, 11/16/2018 ANAHY HANNA MD, Ot N18. 4 CHRONIC KIDNEY DISEASE, STAGE 4 (SEVERE) 11/16/2018 ANAHY HANNA MD Ot R60. 9 EDEMA, UNSPECIFIED 11/16/2018 ANAHY HANNA MD Ot Z79. 01 DISTRICT WIRE CHIEF (CURRENT) USE OF ANTICOAGULANT 11/16/2018 ANAHY HANNA MD Ot Z79. 82 DISTRICT WIRE CHIEF (CURRENT) USE OF ASPIRIN 11/16/2018 ANAHY HANNA MD Ot Z79.899 OTHER DISTRICT WIRE CHIEF (CURRENT) DRUG THERAPY 11/16/2018 ANAHY HANNA MD Ot Z85. 3 PERSONAL HISTORY OF MALIGNANT NEOPLASM O 11/16/2018 ANAHY HANNA MD Ot Z87.891 PERSONAL HISTORY OF NICOTINE DEPENDENCE 11/16/2018 ANAHY HANNA MD Ot Z88. 2 ALLERGY STATUS TO S[place]FON[place]IDES STATUS 11/16/2018 ANAHY HANNA MD Ot Z96.653 PRESENCE OF ARTIFICIAL KNEE JOINT, BILAT 11/17/2018 ANAHY HANNA MD Ot E78. 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 10 ATHSCL HEART DISEASE OF [place] CORONARY 11/17/2018 ANAHY HANNA MD Ot R06. 09 OTHER FORMS OF DYSPNEA 11/24/2018 ANAHY HANNA MD Ot E78. 5 HYPERLIPIDEMIA, UNSPECIFIED 11/24/2018 ANAHY HANNA MD Ot I10 ESSENTIAL (PRIMARY) HYPERTENSION 11/24/2018 ANAHY HANNA MD Ot I25. 10 ATHSCL HEART DISEASE OF [place] CORONARY 11/24/2018 ANAHY HANNA MD Ot R06. 09 OTHER FORMS OF DYSPNEA 11/25/2018 COLETTE CROWLEY MD Ot Z29.8 ENCOUNTER FOR OTHER SPECIFIED PROPHYLACT 01/18/2019 COLETTE CROWLEY MD Ot Z29.8 ENCOUNTER FOR OTHER SPECIFIED PROPHYLACT 01/20/2019 COLETTE CROWLEY MD Ot Z29.8 ENCOUNTER FOR OTHER SPECIFIED PROPHYLACT 02/22/2019 COLETTE CROWLEY MD Ot Z29.8 ENCOUNTER FOR OTHER SPECIFIED PROPHYLACT 03/31/2019 COLETTE CROWLEY MD Ot Z29.8 ENCOUNTER FOR OTHER SPECIFIED PROPHYLACT 04/06/2019 COLETTE CROWLEY MD Ot M54.5 LOW BACK PAIN 04/06/2019 COLETTE CROWLEY MD Ot R26.89 OTHER ABNORMALITIES OF GAIT AND MOBILITY 04/06/2019 COLETTE CROWLEY MD Ot R53.1 WEAKNESS 04/24/2019 COLETTE CROWLEY MD Ot M54.5 LOW BACK PAIN 04/24/2019 COLETTE CROWLEY MD Ot R26.89 OTHER ABNORMALITIES OF GAIT AND MOBILITY 04/24/2019 COLETTE CROWLEY MD Ot R53.1 WEAKNESS 04/25/2019 MEHRAN MARQUEZ Ot 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 04/25/2019 MEHRAN MARQUEZ Ot E03.9 HYPOTHYROIDISM, UNSPECIFIED 04/25/2019 MEHRAN MARQUEZ Ot E78.5 HYPERLIPIDEMIA, UNSPECIFIED 04/25/2019 MEHRAN MARQUEZ Ot I10 ESSENTIAL (PRIMARY) HYPERTENSION 04/25/2019 MEHRAN MARQUEZ Ot I25.10 ATHSCL HEART DISEASE OF [place] CORONARY 04/25/2019 MEHRAN MARQUEZ Ot M85.80 OTH DISRD OF BONE DENSITY AND STRUCTURE, 05/03/2019 COLETTE CROWLEY MD Ot Z29.8 ENCOUNTER FOR OTHER SPECIFIED PROPHYLACT 05/04/2019 COLETTE CROWLEY MD Ot Z29.8 ENCOUNTER FOR OTHER SPECIFIED PROPHYLACT 06/10/2019 COLETTE CROWLEY MD Ot Z29.8 ENCOUNTER FOR OTHER SPECIFIED PROPHYLACT 06/20/2019 COLETTE CROWLEY MD Ot M54.5 LOW BACK PAIN 06/20/2019 COLETTE CROWLEY MD Ot R26.89 OTHER ABNORMALITIES OF GAIT AND MOBILITY 06/20/2019 COLETTE CROWLEY MD Ot R53.1 WEAKNESS 06/22/2019 COLETTE CROWLEY MD Ot M54.5 LOW BACK PAIN 06/22/2019 COLETTE CROWLEY MD Ot R26.89 OTHER ABNORMALITIES OF GAIT AND MOBILITY 06/22/2019 COLETTE CROWLEY MD Ot R53.1 WEAKNESS 06/26/2019 COLETTE CROWLEY MD Ot M54.5 LOW BACK PAIN 06/26/2019 COLETTE CROWLEY MD Ot R26.89 OTHER ABNORMALITIES OF GAIT AND MOBILITY 06/26/2019 COLETTE CROWLEY MD Ot R53.1 WEAKNESS 07/05/2019 COLETTE CROWLEY MD Ot Z29.8 ENCOUNTER FOR OTHER SPECIFIED PROPHYLACT 07/05/2019 COLETTE CROWLEY MD Ot Z29.8 ENCOUNTER FOR OTHER SPECIFIED PROPHYLACT 07/07/2019 COLETTE CROWLEY MD Ot Z29.8 ENCOUNTER FOR OTHER SPECIFIED PROPHYLACT 08/01/2019 MEHRAN MARQUEZ Ot Z12.31 ENCNTR SCREEN MAMMOGRAM FOR MALIGNANT NE 08/01/2019 MEHRAN MARQUEZ Ot Z78.0 ASYMPTOMATIC MENOPAUSAL STATE 08/02/2019 MEHRAN MARQUEZ Ot 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 08/02/2019 MEHRAN MARQUEZ Ot M81.0 AGE- RELATED OSTEOPOROSIS W/O CURRENT PAT 08/02/2019 MEHRAN MARQUEZ Ot Z12.31 ENCNTR SCREEN MAMMOGRAM FOR MALIGNANT NE 08/02/2019 MEHRAN MARQUEZ Ot Z78.0 ASYMPTOMATIC MENOPAUSAL STATE 08/04/2019 COLETTE CROWLEY MD Ot Z29.8 ENCOUNTER FOR OTHER SPECIFIED PROPHYLACT 08/17/2019 COLETTE CROWLEY MD Ot Z29.8 ENCOUNTER FOR OTHER SPECIFIED PROPHYLACT 08/22/2019 COLETTE CROWLEY MD Ot Z29.8 ENCOUNTER FOR OTHER SPECIFIED PROPHYLACT 08/22/2019 MEHRAN MARQUEZ Ot 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 08/22/2019 MEHRAN MARQUEZ Ot M81.0 AGE- RELATED OSTEOPOROSIS W/O CURRENT PAT 08/22/2019 MEHRAN MARQUEZ Ot Z12.31 ENCNTR SCREEN MAMMOGRAM FOR MALIGNANT NE 08/22/2019 MEHRAN MARQUEZ Ot Z78.0 ASYMPTOMATIC MENOPAUSAL STATE 08/25/2019 COLETTE CROWLEY MD Ot Z29.8 ENCOUNTER FOR OTHER SPECIFIED PROPHYLACT 09/01/2019 COLETTE CROWLEY MD Ot Z29.8 ENCOUNTER FOR OTHER SPECIFIED PROPHYLACT 09/12/2019 COLETTE CROWLEY MD Ot B96.89 OTH BACTERIAL AGENTS THE CAUSE OF DIS 09/12/2019 COLETTE CROWLEY MD Ot E03.9 HYPOTHYROIDISM, UNSPECIFIED 09/12/2019 COLETTE CROWLEY MD Ot E66.01 MORBID (SEVERE) OBESITY DUE TO EXCESS CA 09/12/2019 COLETTE CROWLEY MD Ot E78.00 PURE HYPERCHOLESTEROLEMIA, UNSPECIFIED 09/12/2019 COLETTE CROWLEY MD Ot G47.30 SLEEP APNEA, UNSPECIFIED 09/12/2019 COLETTE CROWLEY MD Ot I08.1 RHEUMATIC DISORDERS OF BOTH MITRAL AND T 09/12/2019 COLETTE CROWLEY MD Ot I11.0 HYPERTENSIVE HEART DISEASE WITH HEART FA 09/12/2019 COLETTE CROWLEY MD Ot I25.10 ATHSCL HEART DISEASE OF [place] CORONARY 09/12/2019 COLETTE CROWLEY MD Ot I27.20 PULMONARY HYPERTENSION, UNSPECIFIED 09/12/2019 COLETTE CROWLEY MD Ot I48.20 CHRONIC ATRIAL FIBRILLATION, UNSPECIFIED 09/12/2019 COLETTE CROWLEY MD Ot I50.32 CHRONIC DIASTOLIC (CONGESTIVE) HEART ASHLI 09/12/2019 COLETTE CROWLEY MD Ot I73.9 PERIPHERAL VASCULAR DISEASE, UNSPECIFIED 09/12/2019 COLETTE CROWLEY MD Ot J30.2 OTHER SEASONAL ALLERGIC RHINITIS 09/12/2019 COLETTE CROWLEY MD Ot J44.9 CHRONIC OBSTRUCTIVE PULMONARY DISEASE, U 09/12/2019 COLETTE CROWLEY MD Ot L03.116 CELLULITIS OF LEFT LOWER LIMB 09/12/2019 COLETTE CROWLEY MD, Ot M81.0 AGE-RELATED OSTEOPOROSIS W/O CURRENT PAT 09/12/2019 COLETTE CROWLEY MD, Ot N39.0 URINARY TRACT INFECTION, SITE NOT SPECIF 09/12/2019 COLETTE CROWLEY MD, Ot S20.212A CONTUSION OF LEFT FRONT WALL OF THORAX, 09/12/2019 COLETTE CROWLEY MD, Ot S80.12XA CONTUSION OF LEFT LOWER LEG, INITIAL ENC 09/12/2019 COLETTE CROWLEY MD, Ot W18.39XA OTHER FALL ON SAME LEVEL, INITIAL ENCOUN 09/12/2019 COLETTE CROWLEY MD, Ot Y92.000 [facility] NON-INSTITUT (PRIVATE) R 09/12/2019 COLETTE CROWLEY MD, Ot Z68.35 BODY MASS INDEX (BMI) 35.0-35.9, ADULT 09/12/2019 COLETTE CROWLEY MD Ot Z79.01 ASSISTED (CURRENT) USE OF ANTICOAGULANT 09/12/2019 COLETTE CROWLEY MD Ot Z85.3 PERSONAL HISTORY OF MALIGNANT NEOPLASM O 09/12/2019 COLETTE CROWLEY MD, Ot Z86.718 PERSONAL HISTORY OF OTHER VENOUS THROMBO 09/12/2019 COLETTE CROWLEY MD Ot Z87.891 PERSONAL HISTORY OF NICOTINE DEPENDENCE 09/12/2019 COLETTE CROWLEY MD Ot Z90.81 ACQUIRED ABSENCE OF SPLEEN 09/12/2019 COLETTE CROWLEY MD Ot Z92.3 PERSONAL HISTORY OF IRRADIATION 09/12/2019 COLETTE CROWLEY MD Ot Z95.5 PRESENCE OF CORONARY ANGIOPLASTY IMPLANT 09/12/2019 COLETTE CROWLEY MD Ot Z96.653 PRESENCE OF ARTIFICIAL KNEE JOINT, BILAT Procedures Code Description Performed By Travon goss On 88.72 DX U LTRASOUND-HEART 10/07/2009 57.32 CYST OSCOPY NEC 10/09/2009 58.6 URETH RAL DILATION 10/09/2009 70.21 VAGI NOSCOPY 10/09/2009 Results Test Result Range Complete urinalysis with reflex to cultu re - 08/26/16 07:12 Urine color determination YELLOW NRG Urine clarity determination CLEAR NR G Urine pH measurement by test strip 6 5-9 Specific gravity of urine by test strip 1.020 1.016-1.022 Urine protein assay by test strip, semi-quantitative NEGATIVE NEGATIVE Urine glucose detection by automated test strip NE GATIVE NEGATIVE Erythrocytes detection in urine sediment by light micr oscopy 1+ NEGATIVE Urine ketones detection by automated test strip NE GATIVE NEGATIVE Urine nitrite detection by test strip NEGATIVE NEGATIVE Urine total bilirubin detection by test strip NEGA TIVE NEGATIVE Urine urobilinogen measurement by automated test strip (mass/volume) NORMAL NORMAL Urine leukocyte esterase detection by dipstick 2+ NEGATIVE Automated urine sediment erythrocyte cou nt by microscopy (number/high power field) NONE NRG Automated urine sediment leukocyte count by microscopy (number/high power field) [HPF] NRG Bacteria detection in urine sediment by light microsco py TRACE NRG Squamous epithelial cells detection in u rine sediment by light microscopy 2-5 NRG Crystals detection in urine sediment by light microsco py NONE NRG Casts detection in urine sediment by light microscopy PRESENT NRG Mucus detection in urine sediment by light microscopy NEGATIVE NRG Complete urinalysis with reflex to culture YES NRG Hyaline casts detection in urine sediment by light iqra roscopy 10-25 NRG Bacterial urine culture - 08/26/16 07:12 Bacterial urine culture [id number] NRG COLONY COUNT 10,000/ML - 100,000/ML NRG FTX;REPORTABLE SENSITIVITIES REPORTED AT 1057, 3-3 -17 NR URINE CULTURE RESULTS PLUS NRG Bacterial susceptibility panel - 7 07:12 Gentamicin susceptibility test by minimum inhibitory c oncentration <= NRG Trimethoprim/sulfamethoxazole susceptibi lity test by minimum inhibitoryconcentration <= NRG Ampicillin susceptibility test by minimum inhibitory c oncentration 4 NRG Tobramycin susceptibility test by minimum inhibitory c oncentration <= NRG Cefazolin susceptibility test by minimum inhibitory co ncentration <= NRG Ceftriaxone susceptibility test by minimum inhibitory concentration <= NRG Ampicillin/sulbactam susceptibility test by minimum inhibitory concentration 4 NRG Piperacillin/tazobactam susceptibility t est by minimum inhibitory concentration <= NRG Ciprofloxacin susceptibility test by minimum inhibitor y concentration <= NRG Meropenem susceptibility test by minimum inhibitory co ncentration <= NRG Nitrofurantoin susceptibility test by mi nimum inhibitory concentration <= NRG Aztreonam susceptibility test by minimum inhibitory co ncentration <= NRG Extended spectrum beta lactamase (ESBL) producing bacteria susceptibility test by minimum inhibitory concentration - [facility] Bacterial susceptibility panel - 7 07:12 Gentamicin susceptibility test by minimum inhibitory c oncentration S NRG Vancomycin susceptibility test by minimum inhibitory c oncentration 1 NRG Levofloxacin susceptibility test by minimum inhibitory concentration 0.5 NRG Tetracycline susceptibility test by minimum inhibitory concentration >= NRG Ampicillin susceptibility test by minimum inhibitory c oncentration <= NRG Nitrofurantoin susceptibility test by mi nimum inhibitory concentration <= NRG Linezolid susceptibility test by minimum inhibitory co ncentration 2 NRG Methicillin resistant Staphylococcus aur eus (MRSA) screening culture - 08/26/16 07:21 Methicillin resistant Staphylococcus aureus (MRSA) scr eening culture NEG NRG Automated blood complete blood count (he mogram) panel - 08/26/16 07:25 Blood leukocytes automated count (number/volume) 10.1 10*3/uL 4.3-11.0 Blood erythrocytes automated count (number/volume) 5.15 10*6/uL 4.35-5.85 Venous blood hemoglobin measurement (mass/volume) 15.2 g/dL 11.5-16.0 Blood hematocrit (volume fraction) 46 % 35-52 Automated erythrocyte mean corpuscular volume 89 [ foz_us] 80-99 Automated erythrocyte mean corpuscular h emoglobin (mass per erythrocyte) 30 pg 25-34 Automated erythrocyte mean corpuscular h emoglobin concentration measurement (mass/volume) 33 g/dL 32-36 Automated erythrocyte distribution width ratio 16. 4 % 10.0- 14.5 Automated blood platelet count (count/volume) 301 10*3/uL 130-400 Automated blood platelet mean volume measurement 9.9 [foz_us] 7.4-10.4 PT panel in platelet poor plasma by coag ulation assay - 08/26/16 07:25 Prothrombin time (PT) in platelet poor plasma by coagu lation assay 18.7 s 12.2-14.7 INR in platelet poor plasma or blood by coagulation as say 1.6 0.8-1.4 Activated partial thromboplastin time (a PTT) in platelet poor plasma bycoagulation assay - 03/01/17 07:25 Activated partial thromboplastin time (a PTT) in platelet poor plasma bycoagulation assay 32 s 24-35 Comprehensive metabolic panel - 08/26/16 07:25 Serum or plasma sodium measurement (moles/volume) 140 mmol/L 135-145 Serum or plasma potassium measurement (moles/volume) 3.6 mmol/L 3.6-5.0 Serum or plasma chloride measurement (moles/volume) 104 mmol/L 98-107 Carbon dioxide 24 mmol/L 21-32 Serum or plasma anion gap determination (moles/volume) 12 mmol/L 5-14 Serum or plasma urea nitrogen measurement (mass/volume ) 24 mg/dL 7-18 Serum or plasma creatinine measurement (mass/volume) 1.15 mg/dL 0.60-1.30 Serum or plasma urea nitrogen/creatinine mass ratio 21 NRG Serum or plasma creatinine measurement w ith calculation of estimated glomerular filtration rate 46 NRG Serum or plasma glucose measurement (mass/volume) 78 mg/dL 70-105 Serum or plasma calcium measurement (mass/volume) 9.3 mg/dL 8.5-10.1 Serum or plasma total bilirubin measurement (mass/volu me) 1.0 mg/dL 0.1-1.0 Serum or plasma alkaline phosphatase kaila surement (enzymatic activity/volume) 100 U/L 40-136 Serum or plasma aspartate aminotransfera se measurement (enzymatic activity/volume) 21 U/L 5-34 Serum or plasma alanine aminotransferase measurement (enzymatic activity/volume) 22 U/L 0-55 Serum or plasma protein measurement (mass/volume) 6.3 g/dL 6.4-8.2 Serum or plasma albumin measurement (mass/volume) 3.3 g/dL 3.2-4.5 Lipid 1996 panel - 08/26/16 07:25 Serum or plasma triglyceride measurement (mass/volume) 59 mg/dL <150 Serum or plasma cholesterol measurement (mass/volume) 190 mg/dL < 200 Serum or plasma cholesterol in HDL measurement (mass/v olume) 70 mg/dL 40-60 Cholesterol in LDL [mass/volume] in serum or plasma by direct assay 103 mg/dL 1-129 Serum or plasma cholesterol in VLDL measurement (mass/ volume) 12 mg/dL 5-40 PT panel in platelet poor plasma by coag ulation assay - 04/05/17 14:00 Prothrombin time (PT) in platelet poor plasma by coagu lation assay 27.4 s 12.2-14.7 INR in platelet poor plasma or blood by coagulation as say 2.6 0.8-1.4 Complete blood count (CBC) with automate d white blood cell (WBC) differential - 07/02/18 18:05 Blood leukocytes automated count (number/volume) 13.9 10*3/uL 4.3-11.0 Blood erythrocytes automated count (number/volume) 4.81 10*6/uL 4.35-5.85 Venous blood hemoglobin measurement (mass/volume) 14.1 g/dL 11.5-16.0 Blood hematocrit (volume fraction) 44 % 35-52 Automated erythrocyte mean corpuscular volume 91 [ foz_us] 80-99 Automated erythrocyte mean corpuscular h emoglobin (mass per erythrocyte) 29 pg 25-34 Automated erythrocyte mean corpuscular h emoglobin concentration measurement (mass/volume) 32 g/dL 32-36 Automated erythrocyte distribution width ratio 16. 7 % 10.0- 14.5 Automated blood platelet count (count/volume) 299 10*3/uL 130-400 Automated blood platelet mean volume measurement 10.6 [foz_us] 7.4-10.4 Automated blood neutrophils/100 leukocytes 71 % 42-75 Automated blood lymphocytes/100 leukocytes 19 % 12-44 Blood monocytes/100 leukocytes 10 % 0-12 Automated blood eosinophils/100 leukocytes 1 % 0-10 Automated blood basophils/100 leukocytes 0 % 0-10 Blood neutrophils automated count (number/volume) 9.9 10*3 1.8-7.8 Blood lymphocytes automated count (number/volume) 2.6 10*3 1.0-4.0 Blood monocytes automated count (number/volume) 1. 3 10*3 0.0-1.0 Automated eosinophil count 0.1 10*3/uL 0 .0-0.3 Automated blood basophil count (count/volume) 0.0 10*3/uL 0.0-0.1 Blood lactic acid measurement (moles/vol ume) - 07/02/18 18:05 Blood lactic acid measurement (moles/volume) 1.31 mmol/L 0.50-2.00 PT panel in platelet poor plasma by coag ulation assay - 07/02/18 18:05 Prothrombin time (PT) in platelet poor plasma by coagu lation assay 32.0 s 12.2-14.7 INR in platelet poor plasma or blood by coagulation as say 3.1 0.8-1.4 Activated partial thromboplastin time (a PTT) in platelet poor plasma bycoagulation assay - 07/02/18 18:05 Activated partial thromboplastin time (a PTT) in platelet poor plasma bycoagulation assay 54 s 24-35 Comprehensive metabolic panel - 07/02/18 18:05 Serum or plasma sodium measurement (moles/volume) 139 mmol/L 135-145 Serum or plasma potassium measurement (moles/volume) 4.0 mmol/L 3.6-5.0 Serum or plasma chloride measurement (moles/volume) 101 mmol/L 98-107 Carbon dioxide 25 mmol/L 21-32 Serum or plasma anion gap determination (moles/volume) 13 mmol/L 5-14 Serum or plasma urea nitrogen measurement (mass/volume ) 17 mg/dL 7-18 Serum or plasma creatinine measurement (mass/volume) 1.08 mg/dL 0.60-1.30 Serum or plasma urea nitrogen/creatinine mass ratio 16 NRG Serum or plasma creatinine measurement w ith calculation of estimated glomerular filtration rate 49 NRG Serum or plasma glucose measurement (mass/volume) 92 mg/dL 70-105 Serum or plasma calcium measurement (mass/volume) 9.6 mg/dL 8.5-10.1 Serum or plasma total bilirubin measurement (mass/volu me) 1.1 mg/dL 0.1-1.0 Serum or plasma alkaline phosphatase kaila surement (enzymatic activity/volume) 72 U/L 40-136 Serum or plasma aspartate aminotransfera se measurement (enzymatic activity/volume) 24 U/L 5-34 Serum or plasma alanine aminotransferase measurement (enzymatic activity/volume) 15 U/L 0-55 Serum or plasma protein measurement (mass/volume) 6.5 g/dL 6.4-8.2 Serum or plasma albumin measurement (mass/volume) 3.3 g/dL 3.2-4.5 CALCIUM CORRECTED 10.2 mg/dL 8.5-10.1 Serum or plasma amylase measurement (enz ymatic activity/volume) - 07/02/18 18:05 Serum or plasma amylase measurement (enzymatic activit y/volume) 29 U/L 25-125 Lipase - 07/02/18 18:05 Lipase 29 U/L 8-78 Bacterial blood culture - 07/02/18 18:05 Bacterial blood culture NG NRG Bacterial blood culture - 07/02/18 18:30 Bacterial blood culture NG NRG Complete urinalysis with reflex to cultu re - 07/02/18 18:40 Urine color determination YELLOW NRG Urine clarity determination CLEAR NR G Urine pH measurement by test strip 8 5-9 Specific gravity of urine by test strip 1.015 1.016-1.022 Urine protein assay by test strip, semi-quantitative NEGATIVE NEGATIVE Urine glucose detection by automated test strip NE GATIVE NEGATIVE Erythrocytes detection in urine sediment by light micr oscopy NEGATIVE NEGATIVE Urine ketones detection by automated test strip NE GATIVE NEGATIVE Urine nitrite detection by test strip NEGATIVE NEGATIVE Urine total bilirubin detection by test strip NEGA TIVE NEGATIVE Urine urobilinogen measurement by automated test strip (mass/volume) NORMAL NORMAL Urine leukocyte esterase detection by dipstick 3+ NEGATIVE Automated urine sediment erythrocyte cou nt by microscopy (number/high power field) NONE NRG Automated urine sediment leukocyte count by microscopy (number/high power field) [HPF] NRG Bacteria detection in urine sediment by light microsco py MODERATE NRG Squamous epithelial cells detection in u rine sediment by light microscopy 25-50 NRG Crystals detection in urine sediment by light microsco py NONE NRG Casts detection in urine sediment by light microscopy NONE NRG Mucus detection in urine sediment by light microscopy NEGATIVE NRG Complete urinalysis with reflex to culture YES NRG Bacterial urine culture - 07/02/18 18:40 Bacterial urine culture [id number] NRG COLONY COUNT >100,000/ML NRG FTX;REPORTABLE ID/SENSITIVITY REPORTED 07/04/18 13:0 5 NRG RML Sensitivity Panel - 07/02/18 18:40 Gentamicin susceptibility test by minimum inhibitory c oncentration <= NRG Trimethoprim/sulfamethoxazole susceptibi lity test by minimum inhibitoryconcentration <= NRG Levofloxacin susceptibility test by minimum inhibitory concentration <= NRG Ampicillin susceptibility test by minimum inhibitory c oncentration R NRG Cefazolin susceptibility test by minimum inhibitory co ncentration <= NRG Ceftriaxone susceptibility test by minimum inhibitory concentration <= NRG Ciprofloxacin susceptibility test by minimum inhibitor y concentration <= NRG Meropenem susceptibility test by minimum inhibitory co ncentration <= NRG Nitrofurantoin susceptibility test by pa nimum inhibitory concentration <= NRG Amoxicillin and clavulanate potassium susc IQRA <= NRG Complete blood count (CBC) with automate d white blood cell (WBC) differential - 07/03/18 07:39 Blood leukocytes automated count (number/volume) 12.5 10*3/uL 4.3-11.0 Blood erythrocytes automated count (number/volume) 4.21 10*6/uL 4.35-5.85 Venous blood hemoglobin measurement (mass/volume) 12.2 g/dL 11.5-16.0 Blood hematocrit (volume fraction) 39 % 35-52 Automated erythrocyte mean corpuscular volume 93 [ foz_us] 80-99 Automated erythrocyte mean corpuscular h emoglobin (mass per erythrocyte) 29 pg 25-34 Automated erythrocyte mean corpuscular h emoglobin concentration measurement (mass/volume) 31 g/dL 32-36 Automated erythrocyte distribution width ratio 16. 6 % 10.0- 14.5 Automated blood platelet count (count/volume) 267 10*3/uL 130-400 Automated blood platelet mean volume measurement 10.6 [foz_us] 7.4-10.4 Automated blood neutrophils/100 leukocytes 70 % 42-75 Automated blood lymphocytes/100 leukocytes 17 % 12-44 Blood monocytes/100 leukocytes 12 % 0-12 Automated blood eosinophils/100 leukocytes 1 % 0-10 Automated blood basophils/100 leukocytes 0 % 0-10 Blood neutrophils automated count (number/volume) 8.8 10*3 1.8-7.8 Blood lymphocytes automated count (number/volume) 2.1 10*3 1.0-4.0 Blood monocytes automated count (number/volume) 1. 5 10*3 0.0-1.0 Automated eosinophil count 0.2 10*3/uL 0 .0-0.3 Automated blood basophil count (count/volume) 0.0 10*3/uL 0.0-0.1 PT panel in platelet poor plasma by coag ulation assay - 07/03/18 07:39 Prothrombin time (PT) in platelet poor plasma by coagu lation assay 33.1 s 12.2-14.7 INR in platelet poor plasma or blood by coagulation as say 3.2 0.8-1.4 Comprehensive metabolic panel - 07/03/18 07:39 Serum or plasma sodium measurement (moles/volume) 140 mmol/L 135-145 Serum or plasma potassium measurement (moles/volume) 3.6 mmol/L 3.6-5.0 Serum or plasma chloride measurement (moles/volume) 108 mmol/L 98-107 Carbon dioxide 22 mmol/L 21-32 Serum or plasma anion gap determination (moles/volume) 10 mmol/L 5-14 Serum or plasma urea nitrogen measurement (mass/volume ) 15 mg/dL 7-18 Serum or plasma creatinine measurement (mass/volume) 0.91 mg/dL 0.60-1.30 Serum or plasma urea nitrogen/creatinine mass ratio 16 NRG Serum or plasma creatinine measurement w ith calculation of estimated glomerular filtration rate 60 NRG Serum or plasma glucose measurement (mass/volume) 81 mg/dL 70-105 Serum or plasma calcium measurement (mass/volume) 8.3 mg/dL 8.5-10.1 Serum or plasma total bilirubin measurement (mass/volu me) 1.3 mg/dL 0.1-1.0 Serum or plasma alkaline phosphatase kaila surement (enzymatic activity/volume) 60 U/L 40-136 Serum or plasma aspartate aminotransfera se measurement (enzymatic activity/volume) 17 U/L 5-34 Serum or plasma alanine aminotransferase measurement (enzymatic activity/volume) 11 U/L 0-55 Serum or plasma protein measurement (mass/volume) 5.2 g/dL 6.4-8.2 Serum or plasma albumin measurement (mass/volume) 2.8 g/dL 3.2-4.5 CALCIUM CORRECTED 9.3 mg/dL 8.5-10.1 Complete blood count (CBC) with automate d white blood cell (WBC) differential - 07/04/18 04:30 Blood leukocytes automated count (number/volume) 10.1 10*3/uL 4.3-11.0 Blood erythrocytes automated count (number/volume) 3.93 10*6/uL 4.35-5.85 Venous blood hemoglobin measurement (mass/volume) 11.7 g/dL 11.5-16.0 Blood hematocrit (volume fraction) 36 % 35-52 Automated erythrocyte mean corpuscular volume 93 [ foz_us] 80-99 Automated erythrocyte mean corpuscular h emoglobin (mass per erythrocyte) 30 pg 25-34 Automated erythrocyte mean corpuscular h emoglobin concentration measurement (mass/volume) 32 g/dL 32-36 Automated erythrocyte distribution width ratio 16. 4 % 10.0- 14.5 Automated blood platelet count (count/volume) 233 10*3/uL 130-400 Automated blood platelet mean volume measurement 10.6 [foz_us] 7.4-10.4 Automated blood neutrophils/100 leukocytes 60 % 42-75 Automated blood lymphocytes/100 leukocytes 26 % 12-44 Blood monocytes/100 leukocytes 12 % 0-12 Automated blood eosinophils/100 leukocytes 2 % 0-10 Automated blood basophils/100 leukocytes 0 % 0-10 Blood neutrophils automated count (number/volume) 6.1 10*3 1.8-7.8 Blood lymphocytes automated count (number/volume) 2.6 10*3 1.0-4.0 Blood monocytes automated count (number/volume) 1. 2 10*3 0.0-1.0 Automated eosinophil count 0.2 10*3/uL 0 .0-0.3 Automated blood basophil count (count/volume) 0.0 10*3/uL 0.0-0.1 PT panel in platelet poor plasma by coag ulation assay - 07/04/18 04:30 Prothrombin time (PT) in platelet poor plasma by coagu lation assay 31.9 s 12.2-14.7 INR in platelet poor plasma or blood by coagulation as say 3.1 0.8-1.4 Comprehensive metabolic panel - 07/04/18 04:30 Serum or plasma sodium measurement (moles/volume) 139 mmol/L 135-145 Serum or plasma potassium measurement (moles/volume) 3.4 mmol/L 3.6-5.0 Serum or plasma chloride measurement (moles/volume) 111 mmol/L 98-107 Carbon dioxide 20 mmol/L 21-32 Serum or plasma anion gap determination (moles/volume) 8 mmol/L 5-14 Serum or plasma urea nitrogen measurement (mass/volume ) 14 mg/dL 7-18 Serum or plasma creatinine measurement (mass/volume) 0.81 mg/dL 0.60-1.30 Serum or plasma urea nitrogen/creatinine mass ratio 17 NRG Serum or plasma creatinine measurement w ith calculation of estimated glomerular filtration rate > NRG Serum or plasma glucose measurement (mass/volume) 85 mg/dL 70-105 Serum or plasma calcium measurement (mass/volume) 7.8 mg/dL 8.5-10.1 Serum or plasma total bilirubin measurement (mass/volu me) 0.9 mg/dL 0.1-1.0 Serum or plasma alkaline phosphatase kaila surement (enzymatic activity/volume) 54 U/L 40-136 Serum or plasma aspartate aminotransfera se measurement (enzymatic activity/volume) 15 U/L 5-34 Serum or plasma alanine aminotransferase measurement (enzymatic activity/volume) 9 U/L 0-55 Serum or plasma protein measurement (mass/volume) 4.7 g/dL 6.4-8.2 Serum or plasma albumin measurement (mass/volume) 2.6 g/dL 3.2-4.5 CALCIUM CORRECTED 8.9 mg/dL 8.5-10.1 Automated blood complete blood count (he mogram) panel - 07/05/18 05:35 Blood leukocytes automated count (number/volume) 9.9 10*3/uL 4.3-11.0 Blood erythrocytes automated count (number/volume) 4.01 10*6/uL 4.35-5.85 Venous blood hemoglobin measurement (mass/volume) 12.0 g/dL 11.5-16.0 Blood hematocrit (volume fraction) 37 % 35-52 Automated erythrocyte mean corpuscular volume 93 [ foz_us] 80-99 Automated erythrocyte mean corpuscular h emoglobin (mass per erythrocyte) 30 pg 25-34 Automated erythrocyte mean corpuscular h emoglobin concentration measurement (mass/volume) 32 g/dL 32-36 Automated erythrocyte distribution width ratio 16. 4 % 10.0- 14.5 Automated blood platelet count (count/volume) 262 10*3/uL 130-400 Automated blood platelet mean volume measurement 10.2 [foz_us] 7.4-10.4 PT panel in platelet poor plasma by coag ulation assay - 07/05/18 05:35 Prothrombin time (PT) in platelet poor plasma by coagu lation assay 24.9 s 12.2-14.7 INR in platelet poor plasma or blood by coagulation as say 2.2 0.8-1.4 Whole blood basic metabolic panel - 02/13 05:35 Serum or plasma sodium measurement (moles/volume) 140 mmol/L 135-145 Serum or plasma potassium measurement (moles/volume) 3.7 mmol/L 3.6-5.0 Serum or plasma chloride measurement (moles/volume) 113 mmol/L 98-107 Carbon dioxide 20 mmol/L 21-32 Serum or plasma anion gap determination (moles/volume) 7 mmol/L 5-14 Serum or plasma urea nitrogen measurement (mass/volume ) 14 mg/dL 7-18 Serum or plasma creatinine measurement (mass/volume) 0.84 mg/dL 0.60-1.30 Serum or plasma urea nitrogen/creatinine mass ratio 17 NRG Serum or plasma creatinine measurement w ith calculation of estimated glomerular filtration rate > NRG Serum or plasma glucose measurement (mass/volume) 86 mg/dL 70-105 Serum or plasma calcium measurement (mass/volume) 8.0 mg/dL 8.5-10.1 PT panel in platelet poor plasma by coag ulation assay - 08/30/18 12:25 Prothrombin time (PT) in platelet poor plasma by coagu lation assay 16.3 s 12.2-14.7 INR in platelet poor plasma or blood by coagulation as say 1.3 0.8-1.4 Methicillin resistant Staphylococcus aur eus (MRSA) screening culture - 08/30/18 12:25 Methicillin resistant Staphylococcus aureus (MRSA) scr eening culture NEG NRG Methicillin resistant Staphylococcus aur eus (MRSA) screening culture - 10/26/18 08:40 Methicillin resistant Staphylococcus aureus (MRSA) scr eening culture NEG NRG PT panel in platelet poor plasma by coag ulation assay - 10/28/18 07:20 Prothrombin time (PT) in platelet poor plasma by coagu lation assay 15.5 s 12.2-14.7 INR in platelet poor plasma or blood by coagulation as say 1.2 0.8-1.4 Activated partial thromboplastin time (a PTT) in platelet poor plasma bycoagulation assay - 10/28/18 07:20 Activated partial thromboplastin time (a PTT) in platelet poor plasma bycoagulation assay 34 s 24-35 Automated blood complete blood count (he mogram) panel - 11/09/18 09:25 Blood leukocytes automated count (number/volume) 9.6 10*3/uL 4.3-11.0 Blood erythrocytes automated count (number/volume) 4.74 10*6/uL 4.35-5.85 Venous blood hemoglobin measurement (mass/volume) 14.1 g/dL 11.5-16.0 Blood hematocrit (volume fraction) 44 % 35-52 Automated erythrocyte mean corpuscular volume 92 [ foz_us] 80-99 Automated erythrocyte mean corpuscular h emoglobin (mass per erythrocyte) 30 pg 25-34 Automated erythrocyte mean corpuscular h emoglobin concentration measurement (mass/volume) 32 g/dL 32-36 Automated erythrocyte distribution width ratio 17. 4 % 10.0- 14.5 Automated blood platelet count (count/volume) 310 10*3/uL 130-400 Automated blood platelet mean volume measurement 10.7 [foz_us] 7.4-10.4 PT panel in platelet poor plasma by coag ulation assay - 11/09/18 09:25 Prothrombin time (PT) in platelet poor plasma by coagu lation assay 17.1 s 12.2-14.7 INR in platelet poor plasma or blood by coagulation as say 1.3 0.8-1.4 Activated partial thromboplastin time (a PTT) in platelet poor plasma bycoagulation assay - 11/09/18 09:25 Activated partial thromboplastin time (a PTT) in platelet poor plasma bycoagulation assay 35 s 24-35 Comprehensive metabolic panel - 11/09/18 09:25 Serum or plasma sodium measurement (moles/volume) 141 mmol/L 135-145 Serum or plasma potassium measurement (moles/volume) 4.6 mmol/L 3.6-5.0 Serum or plasma chloride measurement (moles/volume) 106 mmol/L 98-107 Carbon dioxide 21 mmol/L 21-32 Serum or plasma anion gap determination (moles/volume) 14 mmol/L 5-14 Serum or plasma urea nitrogen measurement (mass/volume ) 17 mg/dL 7-18 Serum or plasma creatinine measurement (mass/volume) 1.10 mg/dL 0.60-1.30 Serum or plasma urea nitrogen/creatinine mass ratio 15 NRG Serum or plasma creatinine measurement w ith calculation of estimated glomerular filtration rate 48 NRG Serum or plasma glucose measurement (mass/volume) 77 mg/dL 70-105 Serum or plasma calcium measurement (mass/volume) 9.8 mg/dL 8.5-10.1 Serum or plasma total bilirubin measurement (mass/volu me) 1.0 mg/dL 0.1-1.0 Serum or plasma alkaline phosphatase kaila surement (enzymatic activity/volume) 78 U/L 40-136 Serum or plasma aspartate aminotransfera se measurement (enzymatic activity/volume) 27 U/L 5-34 Serum or plasma alanine aminotransferase measurement (enzymatic activity/volume) 20 U/L 0-55 Serum or plasma protein measurement (mass/volume) 6.6 g/dL 6.4-8.2 Serum or plasma albumin measurement (mass/volume) 3.3 g/dL 3.2-4.5 CALCIUM CORRECTED 10.4 mg/dL 8.5-10.1 Methicillin resistant Staphylococcus aur eus (MRSA) screening culture - 11/09/18 09:25 Methicillin resistant Staphylococcus aureus (MRSA) scr eening culture NEG NRG Complete blood count (CBC) with automate d white blood cell (WBC) differential - 09/08/19 01:58 Blood leukocytes automated count (number/volume) 11.5 10*3/uL 4.3-11.0 Blood erythrocytes automated count (number/volume) 5.59 10*6/uL 4.35-5.85 Venous blood hemoglobin measurement (mass/volume) 16.8 g/dL 11.5-16.0 Blood hematocrit (volume fraction) 52 % 35-52 Automated erythrocyte mean corpuscular volume 92 [ foz_us] 80-99 Automated erythrocyte mean corpuscular h emoglobin (mass per erythrocyte) 30 pg 25-34 Automated erythrocyte mean corpuscular h emoglobin concentration measurement (mass/volume) 33 g/dL 32-36 Automated erythrocyte distribution width ratio 18. 7 % 10.0- 14.5 Automated blood platelet count (count/volume) 304 10*3/uL 130-400 Automated blood platelet mean volume measurement 10.6 [foz_us] 7.4-10.4 Automated blood neutrophils/100 leukocytes 87 % 42-75 Automated blood lymphocytes/100 leukocytes 10 % 12-44 Blood monocytes/100 leukocytes 2 % 0-12 Automated blood eosinophils/100 leukocytes 1 % 0-10 Automated blood basophils/100 leukocytes 0 % 0-10 Blood neutrophils automated count (number/volume) 10.1 10*3 1.8-7.8 Blood lymphocytes automated count (number/volume) 1.2 10*3 1.0-4.0 Blood monocytes automated count (number/volume) 0. 2 10*3 0.0-1.0 Automated eosinophil count 0.1 10*3/uL 0 .0-0.3 Automated blood basophil count (count/volume) 0.0 10*3/uL 0.0-0.1 PT panel in platelet poor plasma by coag ulation assay - 09/08/19 01:58 Prothrombin time (PT) in platelet poor plasma by coagu lation assay 34.3 s 12.2-14.7 INR in platelet poor plasma or blood by coagulation as say 3.2 0.8-1.4 Activated partial thromboplastin time (a PTT) in platelet poor plasma bycoagulation assay - 09/08/19 01:58 Activated partial thromboplastin time (a PTT) in platelet poor plasma bycoagulation assay 44 s 24-35 Comprehensive metabolic panel - 09/08/19 01:58 Serum or plasma sodium measurement (moles/volume) 142 mmol/L 135-145 Serum or plasma potassium measurement (moles/volume) 3.8 mmol/L 3.6-5.0 Serum or plasma chloride measurement (moles/volume) 103 mmol/L 98-107 Carbon dioxide 25 mmol/L 21-32 Serum or plasma anion gap determination (moles/volume) 14 mmol/L 5-14 Serum or plasma urea nitrogen measurement (mass/volume ) 21 mg/dL 7-18 Serum or plasma creatinine measurement (mass/volume) 1.07 mg/dL 0.60-1.30 Serum or plasma urea nitrogen/creatinine mass ratio 20 NRG Serum or plasma creatinine measurement w ith calculation of estimated glomerular filtration rate 49 NRG Serum or plasma glucose measurement (mass/volume) 108 mg/dL 70-105 Serum or plasma calcium measurement (mass/volume) 10.0 mg/dL 8.5-10.1 Serum or plasma total bilirubin measurement (mass/volu me) 1.0 mg/dL 0.1-1.0 Serum or plasma alkaline phosphatase kaila surement (enzymatic activity/volume) 89 U/L 40-136 Serum or plasma aspartate aminotransfera se measurement (enzymatic activity/volume) 32 U/L 5-34 Serum or plasma alanine aminotransferase measurement (enzymatic activity/volume) 31 U/L 0-55 Serum or plasma protein measurement (mass/volume) 6.8 g/dL 6.4-8.2 Serum or plasma albumin measurement (mass/volume) 3.6 g/dL 3.2-4.5 CALCIUM CORRECTED 10.3 mg/dL 8.5-10.1 Magnesium - 09/08/19 01:58 Magnesium 2.1 mg/dL 1.6-2.4 Serum or plasma creatine kinase measurem ent (enzymatic activity/volume) - 09/08/19 01:58 Serum or plasma creatine kinase measurem ent (enzymatic activity/volume) 63 U/L 29-168 Serum or plasma creatine kinase MB measu rement (enzymatic activity/volume) - 09/08/19 01:58 Serum or plasma creatine kinase MB measu rement (enzymatic activity/volume) 0.7 ng/mL <6.6 Serum or plasma troponin i.cardiac measu rement (mass/volume) - 09/08/19 01:58 Serum or plasma troponin i.cardiac measurement (mass/v olume) < ng/mL <0.028 Serum or plasma lithium measurement (mol es/volume) - 09/08/19 01:58 BNP PT 108.3 pg/mL <100.0 Manual absolute plasma cell count - 08/26 09/14 01:58 Blood monocytes/100 leukocytes 3 % NRG Manual blood segmented neutrophils/100 leukocytes 84 % NRG Blood band neutrophils/100 leukocytes 1 % NRG Manual blood lymphocytes/100 leukocytes 4 % NRG Manual eosinophils/100 leukocytes in nose 0 % NRG Manual blood basophils/100 leukocytes 0 % NRG Blood lymphocytes variant/100 leukocytes 8 % NRG Blood polychromasia detection by light microscopy SLIGHT NRG Blood anisocytosis detection by light microscopy M ODERATE NRG Blood macrocytes detection by light microscopy MOD ERATE NRG Blood poikilocytosis detection by light microscopy MODERATE NRG Blood microcytes detection by light microscopy SLI GHT NRG Myoglobin, serum - 09/08/19 01:58 Myoglobin, serum 60.1 ng/mL 10.0-92.0 Serum or plasma amylase measurement (enz ymatic activity/volume) - 09/08/19 01:58 Serum or plasma amylase measurement (enzymatic activit y/volume) 35 U/L 25-125 Lipase - 09/08/19 01:58 Lipase 29 U/L 8-78 Serum or plasma thyrotropin measurement by detection limit <=0.05 miu/l (units/volume) - 09/08/19 01:58 Serum or plasma thyrotropin measurement by detection limit <=0.05 miu/l (units/volume) 4.19 u[iU]/mL 0.35-4.94 Complete urinalysis with reflex to cultu re - 09/08/19 02:05 Urine color determination YELLOW NRG Urine clarity determination SL CLOUDY N RG Urine pH measurement by test strip 7.0 5-9 Specific gravity of urine by test strip 1.010 1.016-1.022 Urine protein assay by test strip, semi-quantitative NEGATIVE NEGATIVE Urine glucose detection by automated test strip NE GATIVE NEGATIVE Erythrocytes detection in urine sediment by light micr oscopy 1+ NEGATIVE Urine ketones detection by automated test strip NE GATIVE NEGATIVE Urine nitrite detection by test strip NEGATIVE NEGATIVE Urine total bilirubin detection by test strip NEGA TIVE NEGATIVE Urine urobilinogen measurement by automated test strip (mass/volume) 0.2 mg/dL < = 1.0 Urine leukocyte esterase detection by dipstick 1+ NEGATIVE Automated urine sediment erythrocyte cou nt by microscopy (number/high power field) [HPF] NRG Automated urine sediment leukocyte count by microscopy (number/high power field) [HPF] NRG Bacteria detection in urine sediment by light microsco py FEW NRG Squamous epithelial cells detection in u rine sediment by light microscopy RARE NRG Crystals detection in urine sediment by light microsco py NONE NRG Casts detection in urine sediment by light microscopy NONE NRG Mucus detection in urine sediment by light microscopy SMALL NRG Complete urinalysis with reflex to culture YES NRG Bacterial urine culture - 09/08/19 02:05 Bacterial urine culture [id number] NRG COLONY COUNT >100,000/ML NRG FTX;REPORTABLE SUSCEPTIBILITY REPORTED 09/09 11:06 NRG Dirithromycin susceptibility test by dis k diffusion - 09/08/19 02:05 Gentamicin susceptibility test by minimum inhibitory c oncentration <= NRG Trimethoprim/sulfamethoxazole susceptibi lity test by minimum inhibitoryconcentration <= NRG Levofloxacin susceptibility test by minimum inhibitory concentration <= NRG Ampicillin susceptibility test by minimum inhibitory c oncentration > NRG Cefazolin susceptibility test by minimum inhibitory co ncentration > NRG Ceftriaxone susceptibility test by minimum inhibitory concentration <= NRG Ciprofloxacin susceptibility test by minimum inhibitor y concentration <= NRG Meropenem susceptibility test by minimum inhibitory co ncentration <= NRG Nitrofurantoin susceptibility test by mi nimum inhibitory concentration > NRG Amoxicillin and clavulanate potassium susc IQRA > NRG Complete blood count (CBC) with automate d white blood cell (WBC) differential - 09/09/19 02:44 Blood leukocytes automated count (number/volume) 20.1 10*3/uL 4.3-11.0 Blood erythrocytes automated count (number/volume) 4.48 10*6/uL 4.35-5.85 Venous blood hemoglobin measurement (mass/volume) 13.5 g/dL 11.5-16.0 Blood hematocrit (volume fraction) 42 % 35-52 Automated erythrocyte mean corpuscular volume 93 [ foz_us] 80-99 Automated erythrocyte mean corpuscular h emoglobin (mass per erythrocyte) 30 pg 25-34 Automated erythrocyte mean corpuscular h emoglobin concentration measurement (mass/volume) 32 g/dL 32-36 Automated erythrocyte distribution width ratio 18. 4 % 10.0- 14.5 Automated blood platelet count (count/volume) 205 10*3/uL 130-400 Automated blood platelet mean volume measurement 11.1 [foz_us] 7.4-10.4 Automated blood neutrophils/100 leukocytes 88 % 42-75 Automated blood lymphocytes/100 leukocytes 6 % 12-44 Blood monocytes/100 leukocytes 6 % 0-12 Automated blood eosinophils/100 leukocytes 0 % 0-10 Automated blood basophils/100 leukocytes 0 % 0-10 Blood neutrophils automated count (number/volume) 17.7 10*3 1.8-7.8 Blood lymphocytes automated count (number/volume) 1.2 10*3 1.0-4.0 Blood monocytes automated count (number/volume) 1. 2 10*3 0.0-1.0 Automated eosinophil count 0.0 10*3/uL 0 .0-0.3 Automated blood basophil count (count/volume) 0.0 10*3/uL 0.0-0.1 PT panel in platelet poor plasma by coag ulation assay - 09/09/19 02:44 Prothrombin time (PT) in platelet poor plasma by coagu lation assay 44.2 s 12.2-14.7 INR in platelet poor plasma or blood by coagulation as say 4.4 0.8-1.4 Comprehensive metabolic panel - 09/09/19 02:44 Serum or plasma sodium measurement (moles/volume) 138 mmol/L 135-145 Serum or plasma potassium measurement (moles/volume) 3.8 mmol/L 3.6-5.0 Serum or plasma chloride measurement (moles/volume) 108 mmol/L 98-107 Carbon dioxide 22 mmol/L 21-32 Serum or plasma anion gap determination (moles/volume) 8 mmol/L 5-14 Serum or plasma urea nitrogen measurement (mass/volume ) 21 mg/dL 7-18 Serum or plasma creatinine measurement (mass/volume) 0.86 mg/dL 0.60-1.30 Serum or plasma urea nitrogen/creatinine mass ratio 24 NRG Serum or plasma creatinine measurement w ith calculation of estimated glomerular filtration rate > NRG Serum or plasma glucose measurement (mass/volume) 100 mg/dL 70-105 Serum or plasma calcium measurement (mass/volume) 8.1 mg/dL 8.5-10.1 Serum or plasma total bilirubin measurement (mass/volu me) 0.9 mg/dL 0.1-1.0 Serum or plasma alkaline phosphatase kaila surement (enzymatic activity/volume) 57 U/L 40-136 Serum or plasma aspartate aminotransfera se measurement (enzymatic activity/volume) 33 U/L 5-34 Serum or plasma alanine aminotransferase measurement (enzymatic activity/volume) 45 U/L 0-55 Serum or plasma protein measurement (mass/volume) 4.5 g/dL 6.4-8.2 Serum or plasma albumin measurement (mass/volume) 2.3 g/dL 3.2-4.5 CALCIUM CORRECTED 9.5 mg/dL 8.5-10.1 Manual absolute plasma cell count - 08/26 10/15 02:44 Blood monocytes/100 leukocytes 6 % [facility] Manual blood segmented neutrophils/100 leukocytes 87 % NR Manual blood lymphocytes/100 leukocytes 7 % NR Blood poikilocytosis detection by light microscopy SLIGHT NRG Blood tennille cells detection by light microscopy SLI GHT NR Blood target cells detection by light microscopy S LIGHT [facility] Automated blood complete blood count (he mogram) panel - 09/10/19 04:43 Blood leukocytes automated count (number/volume) 19.0 10*3/uL 4.3-11.0 Blood erythrocytes automated count (number/volume) 4.12 10*6/uL 4.35-5.85 Venous blood hemoglobin measurement (mass/volume) 12.2 g/dL 11.5-16.0 Blood hematocrit (volume fraction) 39 % 35-52 Automated erythrocyte mean corpuscular volume 93 [ foz_us] 80-99 Automated erythrocyte mean corpuscular h emoglobin (mass per erythrocyte) 30 pg 25-34 Automated erythrocyte mean corpuscular h emoglobin concentration measurement (mass/volume) 32 g/dL 32-36 Automated erythrocyte distribution width ratio 18. 4 % 10.0- 14.5 Automated blood platelet count (count/volume) 178 10*3/uL 130-400 Automated blood platelet mean volume measurement 10.7 [foz_us] 7.4-10.4 PT panel in platelet poor plasma by coag ulation assay - 09/10/19 04:43 Prothrombin time (PT) in platelet poor plasma by coagu lation assay 38.1 s 12.2-14.7 INR in platelet poor plasma or blood by coagulation as say 3.7 0.8-1.4 Whole blood basic metabolic panel - 08/26 11/14 04:43 Serum or plasma sodium measurement (moles/volume) 136 mmol/L 135-145 Serum or plasma potassium measurement (moles/volume) 3.9 mmol/L 3.6-5.0 Serum or plasma chloride measurement (moles/volume) 108 mmol/L 98-107 Carbon dioxide 19 mmol/L 21-32 Serum or plasma anion gap determination (moles/volume) 9 mmol/L 5-14 Serum or plasma urea nitrogen measurement (mass/volume ) 25 mg/dL 7-18 Serum or plasma creatinine measurement (mass/volume) 0.78 mg/dL 0.60-1.30 Serum or plasma urea nitrogen/creatinine mass ratio 32 NRG Serum or plasma creatinine measurement w ith calculation of estimated glomerular filtration rate > NRG Serum or plasma glucose measurement (mass/volume) 85 mg/dL 70-105 Serum or plasma calcium measurement (mass/volume) 8.2 mg/dL 8.5-10.1 Encounters ACCT No. Visit Date/Time Discharge Status Pt. Type Provider Facility Loc./Unit Complaint [id number] 09/08/2019 07:02:00 020 08:42:00 DIS Inpatient KEO SOLIZ, COLETTE Mullen [address] AFIB/RVR;CELLULITIS L L EG;S/P FALL;SEPSIS;UTI- [id number] 09/01/2019 11:21:00 23:59:59 CLS Outpatient COLETTE CROWLEY MD [facility] CR3 WELLNESS [id number] 08/16/2019 16:30:00 00:01:00 DIS Outpatient COLETTE CROWLEY MD [facility] CR3 WELLNESS [id number] 08/01/2019 10:34:00 23:59:59 CLS Outpatient MEHRAN MARQUEZ [facility] RAD SCREENING [id number] 06/12/2019 13:16:00 00:01:00 DIS Outpatient COLETTE CROWLEY MD [facility] CR3 WELLNESS [id number] 04/21/2019 13:03:00 00:01:00 DIS Outpatient COLETTE CROWLEY MD [facility] REHAB LBP;LE WEAKNESS [id number] 05/22/2019 16:33:00 00:01:00 DIS Outpatient COLETTE CROWLEY MD [facility] CR3 WELLNESS [id number] 05/03/2019 17:26:00 00:01:00 DIS Outpatient COLETTE CROWLEY MD [facility] CR3 WELLNESS [id number] 04/03/2019 14:01:00 23:59:59 CLS Outpatient MEHRAN MARQUEZ [facility] ONC [id number] 03/29/2019 15:46:00 00:01:00 DIS Outpatient COLETTE CROWLEY MD [facility] CR3 WELLNESS [id number] 01/25/2019 15:31:00 00:01:00 DIS Outpatient COLETTE CROWLEY MD [facility] CR3 WELLNESS [id number] 01/18/2019 16:43:00 00:01:00 DIS Outpatient COLETTE CROWLEY MD [facility] CR3 WELLNESS [id number] 10/24/2018 16:00:00 00:01:00 DIS Outpatient COLETTE CROWLEY MD [facility] CR3 WELLNESS [id number] 11/09/2018 08:51:00 16:20:00 DIS Outpatient ANAHY HANNA MD [facility] CATH ABN STRESS [id number] 11/02/2018 07:26:00 23:59:59 CLS Outpatient ANAHY HANNA MD [facility] CARD CAD [id number] 10/28/2018 07:05:00 12:05:00 DIS Outpatient GIO HADDAD DO [facility] LESIONS [id number] 10/26/2018 09:00:00 23:59:59 CLS Outpatient ANAHY HANNA MD [facility] CARD CAD [id number] 10/26/2018 08:13:00 15:00:00 DIS Outpatient GIO HADDAD DO [facility] PREOP LESIONS [id number] 10/19/2018 15:57:00 00:01:00 DIS Outpatient COLETTE CROWLEY MD [facility] CR3 WELLNESS [id number] 09/14/2018 15:52:00 00:01:00 DIS Outpatient COLETTE CROWLEY MD [facility]3 WELLNESS [id number] 08/30/2018 11:59:00 17:00:00 DIS Outpatient GIO HADDAD DO [facility] LESION HEAD, HEX DIVERT ICULITIS [id number] 08/24/2018 06:22:00 10:30:00 DIS Outpatient GIO HADDAD DO [facility] PREOP HEAD LESION, COLONOSCOP Y [id number] 08/10/2018 16:30:00 00:01:00 DIS Outpatient COLETTE CROWLEY MD [facility] CR3 WELLNESS [id number] 07/25/2018 11:19:00 23:59:59 CLS Outpatient YESENIA WILDE [facility] RAD SCREENING [id number] 06/15/2018 16:07:00 00:01:00 DIS Outpatient COLETTE CROWLEY MD [facility] CR3 WELLNESS [id number] 07/02/2018 20:43:00 23:59:59 CLS Inpatient COLETTE CROWLEY MD [facility] 4TH DIVERTICULITIS [id number] 06/08/2018 15:51:00 00:01:00 DIS Outpatient COLETTE CROWLEY MD [facility] WELLNESS [id number] 05/06/2018 14:53:00 00:01:00 DIS Outpatient COLETTE CROWLEY MD [facility] WELLNESS [id number] 04/05/2018 06:00:00 018 00:01:00 DIS Outpatient COLETTE CROWLEY MD [facility] WELLNESS [id number] 04/04/2018 12:53:00 23:59:59 CLS Outpatient MEHRAN MARQUEZ [facility] ONC [id number] 10/08/2017 11:03:00 23:59:59 CLS Outpatient JUANA HENDERSON MD [facility] WOUNDCARE [id number] 10/06/2017 03:15:00 23:59:59 CLS Preadmit COLETTE CROWLEY MD [facility] REHAB LEFT SIDED NECK PAIN AN D MUSCLE SPASM [id number] 10/04/2017 13:58:00 00:01:00 DIS Outpatient COLETTE CROWLEY MD [facility] REHAB LEFT SIDED NECK PAIN A ND MUSCLE SPASM [id number] 10/01/2017 09:07:00 04/06/2 018 23:59:59 CLS Outpatient SANTIAGO SOLIZ, JUANA Hickey [facility] WOUNDCARE [id number] 08/11/2017 09:49:00 018 23:59:59 CLS Outpatient ANAHY HANNA MD [facility] CARD AFIB,CAD [id number] 07/21/2017 09:55:00 23:59:59 CLS Outpatient MEHRAN MARQUEZ [facility] RAD SCREENING [id number] 04/05/2017 13:40:00 017 23:59:59 CLS Outpatient COLETTE CROWLEY MD [facility] LAB [id number] 04/05/2017 13:37:00 017 23:59:59 CLS Outpatient MEHRAN MARQUEZ [facility] ONC [id number] 03/04/2017 08:05:00 017 23:59:59 CLS Outpatient YESENIA WILDEP [facility] RAD BREAST CANCER [id number] 08/26/2016 06:44:00 017 15:25:00 DIS Outpatient ANAHY HANNA MD [facility] CATH ABN STRESS,CAD,SOB,GIL PHERAL EDEMA [id number] 07/15/2016 08:17:00 017 23:59:59 CLS Outpatient ANAHY HANNA MD [facility] CARD AFIB,CAD,HTN [id number] 06/24/2016 13:08:00 016 23:59:59 CLS Outpatient YESENIA WILDEP [facility] RAD BREAST CANCER,A BNORMAL MAMMO [id number] 03/23/2016 09:44:00 016 23:59:59 CLS Outpatient 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 [facility] RAD BREAST CANCER [id number] 03/11/2016 14:56:00 016 23:59:59 CLS Outpatient MEHRAN MARQUEZ [facility] ONC [id number] 03/02/2016 10:00:00 23:59:59 CLS Preadmit ANAHY HANNA MD [facility] CR STENT [id number] 02/28/2016 10:31:00 00:01:00 DIS Outpatient ANAHY HANNA MD [facility] CR STENT [id number] 01/23/2016 08:32:00 14:49:00 DIS Outpatient CHAIM RENDON [facility] REHAB IT BAND SYNDROM E [id number] 11/28/2015 10:40:00 11:17:00 DIS Emergency CLOVER RICHARDSON APRN [facility] ER SUTURE REMOVAL [id number] 11/18/2015 17:30:00 18:15:00 DIS Emergency CLOVER RICHARDSON APRN [facility] ER R LEG LAC [id number] 11/03/2015 20:58:00 23:20:00 DIS Emergency CLOVER RICHARDSON APRN [facility] ER R LEG PAIN [id number] 10/10/2015 13:25:00 08:42:00 DIS Inpatient ANAHY HANNA MD [facility] CSD ABNORMAL STRESS, SOA HT N HLP [id number] 09/20/2015 08:02:00 12:35:00 DIS Outpatient JUANA RAMIREZ MD [facility] SDC RIGHT NASAL ALAR MASS [id number] 09/13/2015 12:10:00 23:59:59 CLS Outpatient JUANA RAMIREZ MD [facility] PREOP RIGHT NASAL ALAR MASS [id number] 02/26/2015 07:23:00 23:59:59 CLS Outpatient YEESNIA WILDE [facility] RAD BREAST CANCER E NLARGED LYMPHNODES [id number] 02/19/2015 13:21:00 23:59:59 CLS Outpatient 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 [facility] ONC [id number] 10/02/2014 12:27:00 23:59:59 CLS Outpatient VALENTINE PETERSON MD [facility] RAD FALL WITH LT HI P AND BACK PAIN [id number] 2014 08:58:00 23:59:59 CLS Outpatient MEHRAN MARQUEZ [facility] RAD HX BREAST CA,OSTEOPENIA [id number] 11/08/2013 20:10:00 014 06:05:00 DIS Outpatient IGOR CULP APRN [facility] SLEEP RIVER [id number] 11/02/2013 10:04:00 23:59:59 CLS Outpatient MEHRAN MARQUEZ [facility] ONC [id number] 09/12/2013 21:03:00 014 06:20:00 DIS Outpatient VALENTINE PETERSON MD [facility] SLEEP SNORING,HTN [id number] 09/08/2013 07:05:00 014 11:20:00 DIS Outpatient SUZI SORTO MD [facility] SDC NAUSEA [id number] 09/07/2013 07:14:00 014 23:59:59 CLS Outpatient SUZI SORTO MD [facility] PREOP NAUSEA [id number] 07/17/2013 08:19:00 014 23:59:59 CLS Outpatient YESENIA WILDEP [facility] RAD BREAST CA [id number] 11/15/2012 13:48:00 23:59:59 CLS Outpatient KAROLINE RIVERA [facility] CARD A-FIB,HTN,PRIMO L REGURGITATION,HYPOTHYROIDISM [id number] 11/01/2012 10:22:00 013 23:59:59 CLS Outpatient VALENTINE PETERSON MD [facility] LAB [id number] 11/01/2012 10:01:00 013 23:59:59 CLS Outpatient YESENIA WILDE [facility] ONC [id number] 09/12/2019 09:19:[address] Inpatient COLETTE CROWLEY MD [facility] 4TH UTI, CELLULITIS, LEG SWELLIN G/PAIN, WEAKNESS [id number] 09/30/2015 08:38:00 Document Registration [id number] 09/27/2015 08:08:00 Document Registration [id number] 10/02/2014 12:27:00 Document Registration [id number] 10/02/2014 12:27:00 Document Registration [id number] 10/02/2014 12:27:00 Document Registration [id number] 10/02/2014 12:27:00 Document Registration [id number] 10/02/2014 12:27:00 Document Registration [id number] 10/02/2014 12:27:00 Document Registration [id number] 10/02/2014 12:27:00 Document Registration [id number] 10/02/2014 12:26:00 Document Registration [id number] 10/02/2014 12:26:00 Document Registration [id number] 05/26/2012 11:02:00 Document Registration [id number] 05/26/2012 10:57:00 Document Registration [id number] 05/06/2012 07:59:00 Document Registration [id number] 04/29/2012 10:19:00 Document Registration [id number] 03/17/2012 12:25:00 Document Registration [id number] 11/30/2011 10:52:00 Document Registration [id number] 10/20/2011 10:28:00 Document Registration [id number] 10/12/2011 07:41:00 Document Registration [id number] 08/21/2011 08:00:00 Document Registration [id number] 06/30/2011 10:50:00 Document Registration [id number] 06/24/2011 11:10:00 Document Registration [id number] 11/03/2010 15:39:00 Document Registration [id number] 09/03/2010 09:52:00 Document Registration [id number] 07/10/2010 15:20:00 Document Registration [id number] 04/21/2010 15:18:00 Document Registration [id number] 11/27/2009 13:30:00 Document Registration [id number] 11/18/2009 13:29:00 Document Registration [id number] 10/03/2009 15:04:00 Document Registration [id number] 09/18/2009 13:06:00 Document Registration [id number] 07/15/2009 12:30:00 Document Registration [id number] 07/08/2009 09:51:00 Document Registration
[2019-09-12] MEDS: MEROPENEM 500 MG in WATER (STERILE) FOR INJECTION 10 ML IV SCH ×3 (12:09→21:13)
[2019-09-12] MEDS: FUROSEMIDE 40 MG (LASIX) TAB PO SCH (12:14)
[2019-09-12] MEDS ORDERED: diphenhydrAMINE 25 MG TAB (BENADRYL) PO PRN (13:00)
--- NOTE | 2019-09-12 13:37 | Physical Therapy Daily Note ---
PT Daily Note-Current Subjective No pain reported Appearance Patient returned to room with call light and tray in reach. Patient was seated in recliner, feet up with pillow under feet. Mental Status Patient Orientation: Person, Unable to Assess, Eyes Open Attachments: Oxygen (2 L) Transfers SCALE: Activities may be completed with or without assistive devices. 4-Nzhjafupyc-enpydiw completes the activity by him/herself with no assistance from a helper. 5-Set-up or Clean-up Assistance-helper sets up or cleans up; patient completes activity. [place] assists only prior to or following the activity. 4-Supervision or Touching Assistance-helper provides verbal cues and/or touching/steadying and/or contact guard assistance as patient completes a ctivity. Assistance may be provided throughout the activity or intermittently. 3-Partial/Moderate Assistance-helper does LESS THAN HALF the effort. [place] lifts, holds or supports trunk or limbs, but provides less than half the effort. 2-Substantial/Maximal Assistance-helper does MORE THAN HALF the effort. [place] lifts or holds trunk or limbs and provides more than half the effort. 6-Dgjjbdjyk-wlohfu does ALL the effort. Patient does none of the effort to complete the activity. Or, the assistance of 2 or more helpers is required for the patient to complete the activity. If activity was not attempted, code reason: 7-Patient Refused. 9-Not Applicable-not attempted and the patient did not perform the activity before the current illness, exacerbation or injury. 10-Not Attempted due to Environmental Limitations-(lack of equipment, weather restraints, etc.). 88-Not Attempted due to Medical Conditions or Safety Concerns. Sit to Stand (QC): 4 (CGA) Chair/Omy-so-Zvwsv Xfer(QC): 4 (CGA) Weight Bearing Full Weight Bearing Full Weight Bearing Gait Training Does the Patient Walk?: Yes Distance: 400' Walk 10 feet (QC): 4 (CGA) Walk 50 ft with 2 Turns(QC): 4 (CGA) Walk 150 ft (QC): 4 (CGA) Gait Assistive Device: FWW safe and functional with not deviation Wheelchair Training Does the Pt Use a Wheelchair?: No Exercises Seated Therapy Exercises: Ankle pumps, Long arc quads, Hip flexion Seated Reps: 20 Assessment Current Status: Good Progress Patient ambulated well with verbal cues to stand up strait and keep RW close. Patient requires verbal cues for reorientation due to getting confused how to complete exercises. Patient has no SOB when ambulating and demonstrates increase awareness of her surroundings. PT Short Term Goals Short Term Goals Time Frame: Sep 22, 2019 Roll Left & Right: 5 Sit to lyin Lying to sitting on side of be: 5 Sit to stand: 5 Chair/euo-wx-uguuq transfer: 4 (SBA) Toilet transfer: 4 (SBA) Car transfer: 4 Walk 10 feet: 4 (SBA) Walk 50 feet with two turns: 4 (SBA) Walk 150 feet: 4 (SBA) Walking 10ft on uneven surface: 3 PT Topographical Surveyor Goals Topographical Surveyor Goals PT Half-Way Goals Time Frame: Oct 06, 2019 Roll Left & Right (QC): 5 Sit to Lying (QC): 5 Lying-Sitting on Side/Bed(QC): 5 Sit to Stand (QC): 5 Chair/Uyv-rr-Mzwhb Xfer(QC): 5 Toilet Transfer (QC): 5 Car Transfer (QC): 5 Does the Patient Walk: Yes Walk 10 feet (QC): 5 Walk 50ft with 2 Turns (QC): 5 Walk 150 ft (QC): 5 Walking 10ft on Uneven Surface: 5 PT Plan Problem List Problem List: Activity Tolerance, Functional Strength, Safety, Balance, Gait, Transfer, Bed Mobility Treatment/Plan Treatment Plan: Continue Plan of Care Treatment Plan: Bed Mobility, Concurrent Therapy, Education, Functional Activity Toro, Functional Strength, Group Therapy, Gait, Therapeutic Exercise, Transfers Treatment Duration: Oct 06, 2019 Frequency: 11 times per week Estimated Hrs Per Day: .5 hour per day Patient and/or Family Agrees t: Yes Safety Risks/Education Patient Education: Gait Training, Transfer Techniques, Correct Positioning, Disease Process, Safety Issues Teaching Recipient: Patient, Family Teaching Methods: Demonstration, Audiovisual Response to Teaching: Verbalize Understanding, Return Demonstration, Reinforcement Needed Time/GCodes Time In: 1250 Time Out: 1325 Total Billed Treatment Time: 35 Total Billed Treatment visit 1 EX 20 GT 15 JOSEPH GLASS PT Sep 12, 2019 13:37
--- NOTE | 2019-09-12 13:51 | Occupational Therapy Eval ---
OT Evaluation-General/PLF Medical Diagnosis Admission Date Sep 12, 2019 at 09:19 Medical Diagnosis: cellulitis left LE Onset Date: Sep 08, 2019 Therapy Diagnosis Therapy Diagnosis: impaired ADLs/functional mobility Height/Weight Height (Feet): 5 Height (Inches): 7.00 Weight (Pounds): 209 Weight (Ounces): 0.0 Precautions Precautions/Isolations: Fall Prevention, Standard Precautions Referral Physician: Dr. Pisano Referral Reason: Evaluation/Treatment Medical History Pertinent Medical History: Atrial Fib, CAD, Diverticulitis, GERD, HTN, PVD Additional Medical History coronary stent, high cholesterol, valvular heart disease, chronic edema, dizziness, osteoporosis, arthritis, back pain, hypothyroidism, (B) TKR Current History Pt has had multiple falls at home, presents to ED with left leg pain and left rib pain. Pt admitted acutely on 09/08/2019, transferring to [facility] on 09/12/2019 Social History Home: Single Level Current Living Status: Other Family Entry Into Home: Level Entry Steps Into Home: 1 (threshold step) ADL-Prior Level of Function SCALE: Activities may be completed with or without assistive devices. 8-Mooygtrvsv-wzvzuex completes the activity by him/herself with no assistance from a helper. 5-Set-up or Clean-up Assistance-helper sets up or cleans up; patient completes activity. [place] assists only prior to or following the activity. 4-Supervision or Touching Assistance-helper provides verbal cues and/or touching/steadying and/or contact guard assistance as patient completes activity. Assistance may be provided throughout the activity or intermittently. 3-Partial/Moderate Assistance-helper does LESS THAN HALF the effort. [place] lifts, holds or supports trunk or limbs, but provides less than half the effort. 2-Substantial/Maximal Assistance-helper does MORE THAN HALF the effort. [place] lifts or holds trunk or limbs and provides more than half the effort. 5-Fbqbbtmrv-ftfyla does ALL the effort. Patient does none of the effort to complete the activity. Or, the assistance of 2 or more helpers is required for the patient to complete the activity. If activity was not attempted, code reason: 7-Patient Refused. 9-Not Applicable-not attempted and the patient did not perform the activity before the current illness, exacerbation or injury. 10-Not Attempted due to Environmental Limitations-(lack of equipment, weather restraints, etc.). 88-Not Attempted due to Medical Conditions or Safety Concerns. ADL PLOF Comments Pt reports she was living alone prior to hospitalization. She lives in a house that has a basement, but she only stays on the first level. She is independent with bathing, dressing, and cooking, but requires assistance with laundry from family due to her washer/dryer being in the basement. She denies using AD for functional mobility prior to hospitalization. She has a walk in shower that she usually stands up in, but she believes she has a shower chair she can use if she needs to. Self Care: Needed Some Help Functional Cognition: Independent DME/Equipment: Shower (walkin) OT Current Status Subjective Pt seated in recliner, agreeable to OT evaluation and tx. She did not report any pain during tx. Mental Status/Objective Patient Orientation: Person, Place, Time, Situation Attachments: Potts Catheter, Oxygen Current Glasses/Contacts: Yes Hearing Aids: No Dentures/Partials: Yes Hand Dominance: Right Upper Extremity ROM WFL Upper Extremity Coordination WFL Upper Extremity Sensation pt denies tingling/numbness Upper Extremity Strength RUE 3+/5, LUE 3/5 ADL-Treatment Eating (QC): 6 (per pt report) Oral Hygiene (QC): 5 (set up/clean up) Shower/Bathe Self (QC): 4 (CGA during stand at FWW for cleansing buttocks and periarea. She required increased time with task. ) Upper Body Dressing (QC): 4 (CGA ) Lower Body Dressing (QC): 4 (CGA with increased time.) On/Off Footwear (QC): 4 (SBA with increased time) Toileting Hygiene (QC): 4 (CGA during stand at FWW) Other Treatments Pt seated in recliner, participated in ADL tx at recliner level (see notes above). Post OT tx, pt seated in recliner, call light in reach and all needs met. Education OT Patient Education: Correct positioning, Energy conservation, Modified ADL techniques, Progress toward Goal/Update tx plan, Purpose of tx/functional activities Teaching Recipient: Patient Teaching Methods: Discussion Response to Teaching: Verbalize Understanding OT Medical Insurance Biller Goals Snf Goals Time Frame: Sep 22, 2019 Eating (QC): 6 Oral Hygiene (QC): 6 Toileting Hygiene (QC): 6 Shower/Bathe Self (QC): 6 Upper Body Dressing (QC): 6 Lower Body Dressing (QC): 6 On/Off Footwear (QC): 6 1=Demonstrate adherence to instructed precautions during ADL tasks. 2=Patient will verbalize/demonstrate understanding of assistive devices/modifications for ADL. 3=Patient will improve strength/tolerance for activity to enable patient to perform ADL's. OT Education/Plan Problem List/Assessment Assessment: Decreased Activ Tolerance, Decreased UE Strength, Impaired Funct Balance, Impaired I ADL's, Impaired Self-Care Skills Discharge Recommendations Plan/Recommendations: Continue POC Treatment Plan/Plan of Care Treatment,Training & Education: Yes Patient would benefit from OT for education, treatment and training to promote independence in ADL's, mobility, safety and/or upper extremity function for ADL's. Plan of Care: ADL Retraining, Functional Mobility, UE Funct Exercise/Act Treatment Duration: Sep 22, 2019 Frequency: 5 times per week Estimated Hrs Per Day: .25 hour per day Agreement: Yes Rehab Potential: Fair Time/GCodes Start Time: 11:30 Stop Time: 12:05 Total Time Billed (hr/min): 35 Billed Treatment Time 1, EVM (15'), ADL (20') JORDI SNEED OT Sep 12, 2019 13:50
[2019-09-12] MEDS: SALINE NASAL SPRAY (OCEAN) 45 ML BTL SCH ×2 (14:22→21:14)
[2019-09-12] MEDS: guaiFENesin (MUCINEX) 600 MG TAB PO SCH ×2 (14:23→21:13)
[2019-09-12 15:50] LABS: BILIRUBIN,URINE NEGATIVE (NEGATIVE); CLARITY,URINE SL CLOUDY; COLOR,URINE YELLOW; GLUCOSE, URINE (UA) NEGATIVE (NEGATIVE); KETONES,URINE NEGATIVE (NEGATIVE); LEUKOCYTE ESTERASE ,URINE TRACE (NEGATIVE); NITRITE,URINE NEGATIVE (NEGATIVE); PH,URINE 6.5 (5-9); PROTEIN,URINE 2+ (NEGATIVE)
[2019-09-12 15:57] LABS: BACTERIA,URINE MODERATE /HPF; HYALINE CASTS, URINE RARE /LPF; SQUAMOUS EPITHELIAL CELL,UR RARE /HPF; WBC,URINE 0-2 /HPF
[2019-09-12] MEDS: warFARin 4 MG (COUMADIN) TAB PO SCH (17:17)
[2019-09-12] MEDS: KCL 20 MEQ TAB (K-DUR) PO SCH (17:17)
[2019-09-12] MEDS: LACTOBACILLUS ACIDOPHILUS (PROBIOTIC) CAPSULE PO SCH (17:17)
[2019-09-12] MEDS: CALCIUM CARB + VIT D 600 MG (CALCARB + D) TAB PO SCH (17:17)
[2019-09-12 17:33] VITALS: BP 114/81
[2019-09-12] MEDS: FAMOTIDINE 20 MG (PEPCID) TABLET PO SCH (21:13)
[2019-09-12] MEDS: ACETAMINOPHEN 500 MG TAB (TYLENOL) PO PRN (23:36)
[2019-09-13] MEDS: MEROPENEM 500 MG in WATER (STERILE) FOR INJECTION 10 ML IV SCH ×4 (03:25→20:19)
[2019-09-13 05:04] LABS: HEMOGLOBIN 13.3 G/DL (11.5-16.0); MEAN PLATELET VOLUME 11.2 FL (7.4-10.4); RED CELL DISTRIBUTION WIDTH 17.8 % (10.0-14.5); WHITE BLOOD COUNT 11.7 10^3/uL (4.3-11.0)
[2019-09-13 05:16] VITALS: BP 128/93
[2019-09-13 05:19] LABS: INR 2.3 (0.8-1.4); PROTHROMBIN TIME PATIENT 26.3 SEC (12.2-14.7)
[2019-09-13 05:28] LABS: ALANINE AMINOTRANSFERASE 32 U/L (0-55); ALBUMIN 2.3 GM/DL (3.2-4.5); ALKALINE PHOSPHATASE 73 U/L (40-136); BILIRUBIN,TOTAL 0.6 MG/DL (0.1-1.0); BUN/CREATININE RATIO 20; CALCIUM 8.6 MG/DL (8.5-10.1); CARBON DIOXIDE 30 MMOL/L (21-32); CHLORIDE 103 MMOL/L (98-107); CREATININE SERUM 0.88 MG/DL (0.60-1.30); GFR ESTIMATED > 60; GLUCOSE 82 MG/DL (70-105); POTASSIUM 4.1 MMOL/L (3.6-5.0); SODIUM 140 MMOL/L (135-145); TOTAL PROTEIN 5.3 GM/DL (6.4-8.2)
[2019-09-13] MEDS: LACTOBACILLUS ACIDOPHILUS (PROBIOTIC) CAPSULE PO SCH ×2 (05:58→17:56)
[2019-09-13] MEDS: ASPIRIN E.C. 81 MG (ECOTRIN) TAB PO SCH (05:58)
[2019-09-13] MEDS: KCL 20 MEQ TAB (K-DUR) PO SCH ×2 (05:58→17:54)
[2019-09-13] MEDS: FUROSEMIDE 40 MG (LASIX) TAB PO SCH ×2 (05:58→11:58)
[2019-09-13] MEDS: LEVOTHYROXINE 88 MCG (LEVOTHORID) TAB PO SCH (05:59)
[2019-09-13] MEDS: MAGNESIUM OXIDE (MAG-OX)400 MG TAB PO SCH (07:54)
[2019-09-13] MEDS: guaiFENesin (MUCINEX) 600 MG TAB PO SCH ×2 (07:57→20:18)
[2019-09-13] MEDS: ACETAMINOPHEN 500 MG TAB (TYLENOL) PO PRN ×3 (07:57→18:43)
[2019-09-13] MEDS: PANTOPRAZOLE 40 MG (PROTONIX) TAB PO SCH (07:57)
--- NOTE | 2019-09-13 08:42 | Progress Note ---
Subjective Subjective Date Seen by Provider: Sep 13, 2019 Time Seen by Provider: 08:41 PT REPORTS THAT HER LEG IS STILL HURTING, BUT IT IS A LITTLE LESS PAINFUL THAN ON ADMISSION. SHE STATES THAT SHE DOES NOT WANT TO DO THERAPY AT TIMES BECAUSE HER LEG IS PAINFUL. Review of Systems General: No Chills; Fatigue, Malaise Pulmonary: Cough Cardiovascular: No: Chest Pain Gastrointestinal: No: Abdominal Pain Genitourinary: Other (MARIN IN PLACE) Musculoskeletal: leg pain Neurological: Weakness; No: Confusion All Other Systems Reviewed All Other Systems Reviewed: Yes Objective Exam Vital Signs Vital Signs - First Documented 09/12/19 09/12/19 09/12/19 14:36 15:58 17:33 Temp 35.3 Pulse 91 Resp 15 B/P (MAP) 114/81 (92) Pulse Ox 97 O2 Delivery Nasal Cannula O2 Flow Rate 2.00 Capillary Refill : Less Than 3 Seconds General Appearance: WD/WN HEENT: PERRL/EOMI, Pharynx Normal Neck: Full Range of Motion, Supple Respiratory: Chest Non Tender, Lungs Clear, Normal Breath Sounds Cardiovascular: Regular Rate, Rhythm Gastrointestinal: Normal Bowel Sounds, Non Tender, Soft Rectal: Deferred Extremity: Other (ERYTHEMA, SWELLING, TENDERNESS LEFT MEDIAL THIGH) Neurologic/Psychiatric: Alert, Oriented x3, No Motor/Sensory Deficits, Normal Mood/Affect, hospital cna II-XII Norm as Tested Skin: Warm/Dry Lymphatic: No Adenopathy Results Lab Laboratory Tests 09/12/19 13:50: Urine Color YELLOW, Urine Clarity SL CLOUDY, Urine pH 6.5, Urine Specific [place] 1.015L, Urine Protein 2+H, Urine Glucose (UA) NEGATIVE, Urine Ketones NEGATIVE, Urine Nitrite NEGATIVE, Urine Bilirubin NEGATIVE, Urine Urobilinogen 0.2, Urine Leukocyte Esterase TRACEH, Urine RBC (Auto) 3+H, Urine RBC 2-5H, Urine WBC 0-2, Urine Squamous Epithelial Cells RARE, Urine Crystals NONE, Urine Bacteria MODERATEH, Urine Casts PRESENT, Urine Hyaline Casts RARE, Urine Mucus MODERATEH, Urine Culture Indicated YES 09/13/19 04:30: White Blood Count 11.7H, Red Blood Count 4.46, Hemoglobin 13.3, Hematocrit 41, Mean Corpuscular Volume 92, Mean Corpuscular Hemoglobin 30, Mean Corpuscular Hemoglobin Concent 32, Red Cell Distribution Width 17.8H, Platelet Count 232, Mean Platelet Volume 11.2H, Prothrombin Time 26.3H, INR Comment 2.3H, Sodium Level 140, Potassium Level 4.1, Chloride Level 103, Carbon Dioxide Level 30, Anion Gap 7, Blood Urea Nitrogen 18, Creatinine 0.88, Estimat Glomerular Filtration Rate > 60, BUN/Creatinine Ratio 20, Glucose Level 82, Calcium Level 8.6, Corrected Calcium 10.0, Total Bilirubin 0.6, Aspartate Amino Transf (AST/SGOT) 23, Alanine Aminotransferase (ALT/SGPT) 32, Alkaline Phosphatase 73, Total Protein 5.3L, Albumin 2.3L Assessment/Plan Assessment/Plan Admission Dx LEFT LOWER EXTREMITY CELLULITIS URINARY TRACT INFECTION WITH GRAM NEGATIVE JOSEPH ATRIAL FIBRILLATION WITH RVR CHRONIC HYPERTENSION CHRONIC ANTICOAGULATION WITH COUMADIN HYPERLIPIDEMIA OSTEOPOROSIS GENERALIZED WEAKNESS WITH FALLING EPISODES LEFT LOWER EXTREMITY CELLULITIS - PT ON MEROPENEM - MONITOR SYMPTOMS/REDNESS/SKIN RESPONSE TO THE ANTIBIOTIC REGIMEN - KEEP LEG ELEVATED URINARY TRACT INFECTION WITH GRAM NEGATIVE JOSEPH - ON MEROPENEM ATRIAL FIBRILLATION WITH RVR - CHRONIC WITH ACUTE ELEVATION IN RATE, LIKELY DUE TO ACUTE INFECTION AND DEHYDRATION, WILL MONITOR SYMPTOMS ON ROUTINE MEDICATIONS. - DEFER TO PROPERTY APPRAISER. - ECHO PENDING. CHRONIC HYPERTENSION - RESUME HOME REGIMEN - MONITOR PRESSURES ROUTINELY CHRONIC ANTICOAGULATION WITH COUMADIN - ON COUMADIN REGIMEN, RESTARTED ANTICOAGULATION GOAL 2 - 2.5 HYPERLIPIDEMIA - RESUMED STATIN THERAPY OSTEOPOROSIS - HOLD ALENDRONATE WHILE IN THE HOSPITAL THIS MEDICATION IS NOT VITAL TO HER HEALING PROCESS GENERALIZED WEAKNESS WITH FALLING EPISODES - CONTINUE PHYSICAL THERAPY IN HOSPITAL DVT PROPHYLAXIS WITH COUMADIN - WILL NOT PLACE SCD'S DUE TO LEG INJURY AND EXTREMELY SENSITIVE SKIN ON LOWER EXTREMITIES. GI PROPHYLAXIS WITH PEPCID AND ANTIDIARRHEAL PROPHYLAXIS WITH PROBIOTIC DAILY Clinical Quality Measures DVT/VTE Risk/Contraindication: Risk Factor Score Per Nursin Contraindications-Mechi: Patient refusal of tx Other: PT IS ON COUMADIN FOR AFIB AND SHE REFUSED SCDS AND COMPRESSION SOCKS DUE TO HER LEG PAIN FROM THE FALL AND CELLULITIS COLETTE CROWLEY MD Sep 13, 2019 08:41
[2019-09-13] MEDS: FAMOTIDINE 20 MG (PEPCID) TABLET PO SCH ×2 (09:33→20:18)
[2019-09-13] MEDS: dilTIAZem120 MG (CARDIZEM CD) CAP PO SCH (09:33)
[2019-09-13] MEDS: SALINE NASAL SPRAY (OCEAN) 45 ML BTL SCH ×2 (09:35→20:18)
--- NOTE | 2019-09-13 10:20 | Physical Therapy Daily Note ---
PT Daily Note-Current Subjective Patient in 2/10 pain in L knee Appearance Return to chair feet up with call/ tray in reach. Mental Status Patient Orientation: Person, Place, Eyes Open Attachments: Oxygen (2 L) Transfers SCALE: Activities may be completed with or without assistive devices. 1-Mswnohkamx-pdmewfu completes the activity by him/herself with no assistance from a helper. 5-Set-up or Clean-up Assistance-helper sets up or cleans up; patient completes activity. [place] assists only prior to or following the activity. 4-Supervision or Touching Assistance-helper provides verbal cues and/or touching/steadying and/or contact guard assistance as patient completes activity. Assistance may be provided throughout the activity or intermittently. 3-Partial/Moderate Assistance-helper does LESS THAN HALF the effort. [place] lifts, holds or supports trunk or limbs, but provides less than half the effort. 2-Substantial/Maximal Assistance-helper does MORE THAN HALF the effort. [place] lifts or holds trunk or limbs and provides more than half the effort. 0-Egtazvlht-tycqnw does ALL the effort. Patient does none of the effort to complete the activity. Or, the assistance of 2 or more helpers is required for the patient to complete the activity. If activity was not attempted, code reason: 7-Patient Refused. 9-Not Applicable-not attempted and the patient did not perform the activity before the current illness, exacerbation or injury. 10-Not Attempted due to Environmental Limitations-(lack of equipment, weather restraints, etc.). 88-Not Attempted due to Medical Conditions or Safety Concerns. Sit to Stand (QC): 4 Chair/Hyq-xt-Cmzcg Xfer(QC): 4 SBA50% CGA 50% Weight Bearing Full Weight Bearing Full Weight Bearing Gait Training Does the Patient Walk?: Yes Distance: 300 Walk 10 feet (QC): 4 Walk 50 ft with 2 Turns(QC): 4 Walk 150 ft (QC): 4 Gait Assistive Device: FWW Improve with RW and keeping it close. Better posture. CGA 50% and SBA 50% Exercises Seated Therapy Exercises: Ankle pumps, Kicking activity Seated Reps: 10 Assessment Current Status: Excellent Progress Safe ambulation with CGA as need due to slight increase in pain in left knee and loss of direction when ambulating. PT Short Term Goals Short Term Goals Time Frame: Sep 22, 2019 Roll Left & Right: 5 Sit to lyin Lying to sitting on side of be: 5 Sit to stand: 5 Chair/skl-jp-dgcmj transfer: 4 (SBA) Toilet transfer: 4 (SBA) Car transfer: 4 Walk 10 feet: 4 (SBA) Walk 50 feet with two turns: 4 (SBA) Walk 150 feet: 4 (SBA) Walking 10ft on uneven surface: 3 PT Chcf Goals Chcf Goals PT Box Turner Goals Time Frame: Oct 06, 2019 Roll Left & Right (QC): 5 Sit to Lying (QC): 5 Lying-Sitting on Side/Bed(QC): 5 Sit to Stand (QC): 5 Chair/Lio-zh-Bxbpz Xfer(QC): 5 Toilet Transfer (QC): 5 Car Transfer (QC): 5 Does the Patient Walk: Yes Walk 10 feet (QC): 5 Walk 50ft with 2 Turns (QC): 5 Walk 150 ft (QC): 5 Walking 10ft on Uneven Surface: 5 PT Plan Problem List Problem List: Activity Tolerance, Functional Strength, Safety, Balance, Gait Treatment/Plan Treatment Plan: Continue Plan of Care Treatment Plan: Bed Mobility, Concurrent Therapy, Education, Functional Activity Toro, Functional Strength, Group Therapy, Gait, Therapeutic Exercise, Transfers Treatment Duration: Oct 06, 2019 Frequency: 11 times per week Estimated Hrs Per Day: .5 hour per day Patient and/or Family Agrees t: Yes Safety Risks/Education Patient Education: Gait Training, Correct Positioning, Safety Issues Teaching Recipient: Patient, Family Teaching Methods: Demonstration, Discussion, Audiovisual Response to Teaching: Verbalize Understanding, Return Demonstration, Reinfor cement Needed Time/GCodes Time In: 0940 Time Out: 1015 Total Billed Treatment Time: 35 Total Billed Treatment 1 visit EX 15 GT 20 JOSEPH GLASS PT Sep 13, 2019 10:20
--- NOTE | 2019-09-13 11:04 | Occupational Ther Daily Note ---
OT Current Status-Daily Note Subjective Pt sitting upright in recliner with son present. Agreeable to OT tx this AM with focus on ADLs. Mental Status/Objective Attachments: Oxygen ADL-Treatment Therapy Code Descriptions/Definitions Functional [place] Measure: 0=Not Assessed/NA 4=Minimal Assistance 1=Total Assistance 5=Supervision or Setup 2=Maximal Assistance 6=Modified [place] 3=Moderate Assistance 7=Complete IndependenceSCALE: Activities may be completed with or without assistive devices. 7-Juiewomrzm-olsidjn completes the activity by him/herself with no assistance from a helper. 5-Set-up or Clean-up Assistance-helper sets up or cleans up; patient completes activity. [place] assists only prior to or following the activity. 4-Supervision or Touching Assistance-helper provides verbal cues and/or touching/steadying and/or contact guard assistance as patient completes activity. Assistance may be provided throughout the activity or intermittently. 3-Partial/Moderate Assistance-helper does LESS THAN HALF the effort. [place] lifts, holds or supports trunk or limbs, but provides less than half the effort. 2-Substantial/Maximal Assistance-helper does MORE THAN HALF the effort. [place] lifts or holds trunk or limbs and provides more than half the effort. 8-Tdwajvevw-halsbz does ALL the effort. Patient does none of the effort to complete the activity. Or, the assistance of 2 or more helpers is required for the patient to complete the activity. If activity was not attempted, code reason: 7-Patient Refused. 9-Not Applicable-not attempted and the patient did not perform the activity before the current illness, exacerbation or injury. 10-Not Attempted due to Environmental Limitations-(lack of equipment, weather restraints, etc.). 88-Not Attempted due to Medical Conditions or Safety Concerns. Other Treatment Pt seated in recliner at start of session, son present stating he is leaving to go home. Pt completed hair washing with warm shower cap and washed her face with set up/clean up assistance. Pt required increased time with tasks, and rest breaks during task in order to rest her arms. Pt's son-in-law arrived towards end of tx. Post OT session, pt seated upright in recliner, call light in reach and all needs met. Education OT Patient Education: Correct positioning, Energy conservation, Modified ADL techniques, Progress toward Goal/Update tx plan, Purpose of tx/functional activities Teaching Recipient: Patient Teaching Methods: Discussion Response to Teaching: Verbalize Understanding OT Shelter Goals Manufactured Buildings Repairer Goals Time Frame: Sep 22, 2019 Eating (QC): 6 Oral Hygiene (QC): 6 Toileting Hygiene (QC): 6 Shower/Bathe Self (QC): 6 Upper Body Dressing (QC): 6 Lower Body Dressing (QC): 6 On/Off Footwear (QC): 6 1=Demonstrate adherence to instructed precautions during ADL tasks. 2=Patient will verbalize/demonstrate understanding of assistive devices/modifications for ADL. 3=Patient will improve strength/tolerance for activity to enable patient to perform ADL's. OT Education/Plan Problem List/Assessment Assessment: Decreased Activ Tolerance, Decreased UE Strength, Impaired I ADL's, Impaired Self-Care Skills Discharge Recommendations Plan/Recommendations: Continue POC Treatment Plan/Plan of Care Patient would benefit from OT for education, treatment and training to promote independence in ADL's, mobility, safety and/or upper extremity function for ADL's. Plan of Care: ADL Retraining, Functional Mobility, UE Funct Exercise/Act Treatment Duration: Sep 22, 2019 Frequency: 5 times per week Estimated Hrs Per Day: .25 hour per day Agreement: Yes Rehab Potential: Fair Time/GCodes Start Time: 10:25 Stop Time: 10:45 Total Time Billed (hr/min): 20 Billed Treatment Time 1, ADL JORDI SNEED OT Sep 13, 2019 11:04
--- NOTE | 2019-09-13 11:59 | NUR ---
"RD ASSESSMENT PMHx: afib; DVT; CAD; hypercholesterolemia; HTN; GERD; diverticulosis; hypothyroidism; CA(skin, breast) PT INTERACTION: Pt was awake and pleasant during nutrition assessment. Pt states current appetite is good. Note avg PO intake 75% x1d, per chart review. Pt states trying to follow low-chol and low-Na diet at home, and has some difficulty swallowing breads. Pt states no recent issues with n/v at this time. Pt states some recent issues with constipation. Note last BM was 09/11 and pt not currently on bowel regimen per chart review. Pt states no recent wt changes. Note unable to determine recent wt hx, per chart review. Note presence of wounds (bilateral LE), per chart review. ABNORMAL NUTRITION-RELATED LAB VALUES LOW: Pro 5.3; alb 2.3 HIGH: Est. kcal needs: 6164-2298 kcal | 15-18 kcal/kg Est. Pro needs: 104-124 g Pro | 1.0-1.2 g Pro/kg PES STATEMENT: Inadequate protein intake ([id number]) related to increased protein needs as evidenced by presence of wounds (bilateral LE) | abnormal lab values: Pro 5.3; alb 2.3 INTERVENTION: Continue with current diet order of Heart Healthy diet. Add Ensure HP (van) to meals TID. Provides 160 kcal and 16 g Pro per serving for perceived benefit to wound healing. Will continue to follow and reassess as pt needs, intake, and status change. MONITOR/EVALUATE: PO Intake; Plan of Care; Hydration Status; Weight Status; Lab Values Mary Sherman, MS, RD, LD"
--- NOTE | 2019-09-13 14:28 | Physical Therapy Daily Note ---
PT Daily Note-Current Subjective Pt agreeable to PT session. States she really appreciates walking. Pain Numeric Pain Scale: 3 Comment: L knee, serna Appearance Pt sitting up in recliner upon arrival. Pt's dtr present during entire tx session. At end of session, pt sitting up in recliner wtih call light, phone, bedside table within reach with RLE elevated and B heels off surface Mental Status Patient Orientation: Person, Place, Time, Eyes Open, Situation Attachments: Oxygen (2L) Transfers SCALE: Activities may be completed with or without assistive devices. 4-Nmeunjxjbg-ukgmrrt completes the activity by him/herself with no assistance from a helper. 5-Set-up or Clean-up Assistance-helper sets up or cleans up; patient completes activity. [place] assists only prior to or following the activity. 4-Supervision or Touching Assistance-helper provides verbal cues and/or touching/steadying and/or contact guard assistance as patient completes activity. Assistance may be provided throughout the activity or intermittently. 3-Partial/Moderate Assistance-helper does LESS THAN HALF the effort. [place] lifts, holds or supports trunk or limbs, but provides less than half the effort. 2-Substantial/Maximal Assistance-helper does MORE THAN HALF the effort. [place] lifts or holds trunk or limbs and provides more than half the effort. 4-Beboduhhq-dkgopx does ALL the effort. Patient does none of the effort to complete the activity. Or, the assistance of 2 or more helpers is required for the patient to complete the activity. If activity was not attempted, code reason: 7-Patient Refused. 9-Not Applicable-not attempted and the patient did not perform the activity before the current illness, exacerbation or injury. 10-Not Attempted due to Environmental Limitations-(lack of equipment, weather restraints, etc.). 88-Not Attempted due to Medical Conditions or Safety Concerns. Sit to Stand (QC): 4 (SBA) Weight Bearing Full Weight Bearing Full Weight Bearing Gait Training Does the Patient Walk?: Yes Distance: 400 Walk 10 feet (QC): 4 Walk 50 ft with 2 Turns(QC): 4 Walk 150 ft (QC): 4 Gait Persons Needed: 1 Gait Assistive Device: FWW SBA, no LOB or unsteady episodes, slow pace, x1 episode requiring inst to maintain proper distance from walker. Wheelchair Training Does the Pt Use a Wheelchair?: No Treatments education, safety, transfers, gait, activity tolerance, functional mobility, positioning for edema and pain Assessment Safe ambulation with SGA as needed due to slight increase in pain in left knee and loss of direction when ambulating. PT Short Term Goals Short Term Goals Time Frame: Sep 22, 2019 Roll Left & Right: 5 Sit to lyin Lying to sitting on side of be: 5 Sit to stand: 5 Chair/fmr-eq-zcvko transfer: 4 (SBA) Toilet transfer: 4 (SBA) Car transfer: 4 Walk 10 feet: 4 (SBA) Walk 50 feet with two turns: 4 (SBA) Walk 150 feet: 4 (SBA) Walking 10ft on uneven surface: 3 PT Vulnerability Researcher Goals Detention Goals PT Vulnerability Researcher Goals Time Frame: Oct 06, 2019 Roll Left & Right (QC): 5 Sit to Lying (QC): 5 Lying-Sitting on Side/Bed(QC): 5 Sit to Stand (QC): 5 Chair/Hmm-bm-Wwktw Xfer(QC): 5 Toilet Transfer (QC): 5 Car Transfer (QC): 5 Does the Patient Walk: Yes Walk 10 feet (QC): 5 Walk 50ft with 2 Turns (QC): 5 Walk 150 ft (QC): 5 Walking 10ft on Uneven Surface: 5 PT Plan Treatment/Plan Treatment Plan: Continue Plan of Care Treatment Plan: Bed Mobility, Concurrent Therapy, Education, Functional Acti vity Toro, Functional Strength, Group Therapy, Gait, Therapeutic Exercise, Transfers Treatment Duration: Oct 06, 2019 Frequency: 11 times per week Estimated Hrs Per Day: .5 hour per day Patient and/or Family Agrees t: Yes Safety Risks/Education Patient Education: Gait Training, Transfer Techniques, Reviewed Precautions, Correct Positioning, Safety Issues Teaching Recipient: Patient, Family Teaching Methods: Demonstration, Discussion Response to Teaching: Verbalize Understanding, Return Demonstration Time/GCodes Time In: 1354 Time Out: 1420 Total Billed Treatment Time: 26 Total Billed Treatment 1 visit, GT x26 CHU HUSAIN LINEMAN SERVICE OR WORK DISPATCHER Sep 13, 2019 14:28
[2019-09-13] MEDS: CALCIUM CARB + VIT D 600 MG (CALCARB + D) TAB PO SCH (17:54)
[2019-09-13] MEDS: warFARin 4 MG (COUMADIN) TAB PO SCH (17:54)
[2019-09-13 18:00] VITALS: BP 132/85
[2019-09-14] MEDS: ACETAMINOPHEN 500 MG TAB (TYLENOL) PO PRN ×2 (02:11→13:06)
[2019-09-14] MEDS: MEROPENEM 500 MG in WATER (STERILE) FOR INJECTION 10 ML IV SCH ×4 (02:15→20:43)
[2019-09-14 06:00] VITALS: BP 110/70
[2019-09-14] MEDS: ASPIRIN E.C. 81 MG (ECOTRIN) TAB PO SCH (06:16)
[2019-09-14] MEDS: KCL 20 MEQ TAB (K-DUR) PO SCH ×2 (06:17→17:17)
[2019-09-14] MEDS: LEVOTHYROXINE 88 MCG (LEVOTHORID) TAB PO SCH (06:17)
[2019-09-14] MEDS: FUROSEMIDE 40 MG (LASIX) TAB PO SCH ×2 (06:17→13:06)
[2019-09-14] MEDS: LACTOBACILLUS ACIDOPHILUS (PROBIOTIC) CAPSULE PO SCH ×2 (06:19→17:18)
[2019-09-14 07:03] LABS: PROTHROMBIN TIME PATIENT 23.9 SEC (12.2-14.7)
[2019-09-14 08:00] VITALS: BP 125/57
--- NOTE | 2019-09-14 08:48 | Progress Note ---
Subjective Subjective Date Seen by Provider: Sep 14, 2019 Time Seen by Provider: 08:40 PT REPORTS THAT SHE IS FEELING WEAK, SHE IS HAVING NO SHORTNESS OF BREATH, HER LEG IS CONTINUING TO BE A LITTLE LESS PAINFUL EVERY DAY. SHE STATES THAT SHE HAS LESS SWELLING IN HER LEG WITH ELEVATION. Review of Systems General: Fatigue Pulmonary: No Dyspnea, No Cough Gastrointestinal: No: Nausea, Abdominal Pain Neurological: Weakness All Other Systems Reviewed All Other Systems Reviewed: Yes Objective Exam Vital Signs Vital Signs - First Documented 09/12/19 09/12/19 09/12/19 14:36 15:58 17:33 Temp 35.3 Pulse 91 Resp 15 B/P (MAP) 114/81 (92) Pulse Ox 97 O2 Delivery Nasal Cannula O2 Flow Rate 2.00 Capillary Refill : Less Than 3 Seconds General Appearance: No Apparent Distress, WD/WN HEENT: PERRL/EOMI, Pharynx Normal Neck: Full Range of Motion, Supple Respiratory: Chest Non Tender, Lungs Clear, Normal Breath Sounds Cardiovascular: Irregularly Irregular Gastrointestinal: Non Tender, Soft Neurologic/Psychiatric: Alert, Oriented x3, Normal Mood/Affect Skin: Other (ERYTHEMA LEFT LOWER LEG) Results Lab Laboratory Tests 09/14/19 05:39: Prothrombin Time 23.9H, INR Comment 2.0H Microbiology 09/12/19 Urine Culture - Final, Complete NO GROWTH Assessment/Plan Assessment/Plan Admission Dx LEFT LOWER EXTREMITY CELLULITIS URINARY TRACT INFECTION WITH GRAM NEGATIVE JOSEPH ATRIAL FIBRILLATION WITH RVR CHRONIC HYPERTENSION CHRONIC ANTICOAGULATION WITH COUMADIN HYPERLIPIDEMIA OSTEOPOROSIS GENERALIZED WEAKNESS WITH FALLING EPISODES LEFT LOWER EXTREMITY CELLULITIS - PT ON [place] - MONITOR SYMPTOMS/REDNESS/SKIN RESPONSE TO THE ANTIBIOTIC REGIMEN - KEEP LEG ELEVATED URINARY TRACT INFECTION WITH GRAM NEGATIVE JOSEPH - ON [place] ATRIAL FIBRILLATION WITH RVR- - RESUME HOME REGIMEN - TELEMETRY DC'D CHRONIC HYPERTENSION - RESUME HOME REGIMEN - MONITOR PRESSURES ROUTINELY - HOLD DILTIAZEM IF SBP IS LESS THAN 120 OR HEART RATE LESS THAN 55 CHRONIC ANTICOAGULATION WITH COUMADIN - ON COUMADIN REGIMEN, RESTARTED ANTICOAGULATION GOAL 2 - 2.5 HYPERLIPIDEMIA - RESUMED STATIN THERAPY OSTEOPOROSIS - HOLD ALENDRONATE WHILE IN THE HOSPITAL THIS MEDICATION IS NOT VITAL TO HER HEALING PROCESS GENERALIZED WEAKNESS WITH FALLING EPISODES - CONTINUE PHYSICAL THERAPY IN HOSPITAL DVT PROPHYLAXIS WITH COUMADIN - WILL NOT PLACE SCD'S DUE TO LEG INJURY AND EXTREMELY SENSITIVE SKIN ON LOWER EXTREMITIES. GI PROPHYLAXIS WITH PEPCID AND ANTIDIARRHEAL PROPHYLAXIS WITH PROBIOTIC DAILY Clinical Quality Measures DVT/VTE Risk/Contraindication: Risk Factor Score Per Nursin Contraindications-Mechi: Patient refusal of tx Other: PT IS ON COUMADIN FOR AFIB AND SHE REFUSED SCDS AND COMPRESSION SOCKS DUE TO HER LEG PAIN FROM THE FALL AND CELLULITIS COLETTE CROWLEY MD Sep 14, 2019 08:48
[2019-09-14] MEDS: PANTOPRAZOLE 40 MG (PROTONIX) TAB PO SCH (08:57)
[2019-09-14] MEDS: MAGNESIUM OXIDE (MAG-OX)400 MG TAB PO SCH (08:57)
[2019-09-14] MEDS: guaiFENesin (MUCINEX) 600 MG TAB PO SCH ×2 (08:57→20:43)
[2019-09-14] MEDS: dilTIAZem120 MG (CARDIZEM CD) CAP PO SCH (08:57)
[2019-09-14] MEDS: FAMOTIDINE 20 MG (PEPCID) TABLET PO SCH ×2 (08:58→20:43)
[2019-09-14] MEDS: SALINE NASAL SPRAY (OCEAN) 45 ML BTL SCH ×2 (08:58→20:43)
[2019-09-14] MEDS ORDERED: NYSTATIN ORAL SUSP 5 ML UDC PO ONE (10:00)
--- NOTE | 2019-09-14 10:08 | Physical Therapy Daily Note ---
PT Daily Note-Current Subjective Patient reports no pain Appearance Patient returned to recliner with call light and tray in reach. Feet up Mental Status Patient Orientation: Person, Eyes Open Attachments: Oxygen (3 L) Transfers SCALE: Activities may be completed with or without assistive devices. 7-Nfqhegjjyn-hqqepfr completes the activity by him/herself with no assistance from a helper. 5-Set-up or Clean-up Assistance-helper sets up or cleans up; patient completes activity. [place] assists only prior to or following the activity. 4-Supervision or Touching Assistance-helper provides verbal cues and/or touching /steadying and/or contact guard assistance as patient completes activity. Assistance may be provided throughout the activity or intermittently. 3-Partial/Moderate Assistance-helper does LESS THAN HALF the effort. [place] lifts, holds or supports trunk or limbs, but provides less than half the effort. 2-Substantial/Maximal Assistance-helper does MORE THAN HALF the effort. [place] lifts or holds trunk or limbs and provides more than half the effort. 8-Sdaaivefi-knzhmq does ALL the effort. Patient does none of the effort to complete the activity. Or, the assistance of 2 or more helpers is required for the patient to complete the activity. If activity was not attempted, code reason: 7-Patient Refused. 9-Not Applicable-not attempted and the patient did not perform the activity before the current illness, exacerbation or injury. 10-Not Attempted due to Environmental Limitations-(lack of equipment, weather restraints, etc.). 88-Not Attempted due to Medical Conditions or Safety Concerns. Sit to Stand (QC): 5 Chair/Eow-gr-Jyman Xfer(QC): 5 Toilet Transfer (QC): 5 Patient requires only set up Weight Bearing Full Weight Bearing Full Weight Bearing Gait Training Does the Patient Walk?: Yes Distance: 700' Walk 10 feet (QC): 5 Walk 50 ft with 2 Turns(QC): 5 Walk 150 ft (QC): 5 Gait Assistive Device: FWW Verbal cues for posture. Patient is progressing with gait and distance Assessment Current Status: Good Progress Patient becomes confused sometimes on where she is at (location). This does not inhibit functional mobility. Patient is improving with safe gait and only requires set up for functional activities of daily living. PT instructed patient to toilet self during day to ensure safe return to home. PT also instructed patient and family to call for assistance in the evening for safety. PT Short Term Goals Short Term Goals Time Frame: Sep 22, 2019 Roll Left & Right: 5 Sit to lyin Lying to sitting on side of be: 5 Sit to stand: 5 Chair/fyd-cd-ovczy transfer: 4 (SBA) Toilet transfer: 4 (SBA) Car transfer: 4 Walk 10 feet: 4 (SBA) Walk 50 feet with two turns: 4 (SBA) Walk 150 feet: 4 (SBA) Walking 10ft on uneven surface: 3 PT Penitentiary Goals Pull Tab Dealer Goals PT Penitentiary Goals Time Frame: Oct 06, 2019 Roll Left & Right (QC): 5 Sit to Lying (QC): 5 Lying-Sitting on Side/Bed(QC): 5 Sit to Stand (QC): 5 Chair/Ubg-ru-Aoydb Xfer(QC): 5 Toilet Transfer (QC): 5 Car Transfer (QC): 5 Does the Patient Walk: Yes Walk 10 feet (QC): 5 Walk 50ft with 2 Turns (QC): 5 Walk 150 ft (QC): 5 Walking 10ft on Uneven Surface: 5 PT Plan Problem List Problem List: Activity Tolerance, Functional Strength, Safety, Balance, Gait, Transfer Treatment/Plan Treatment Plan: Continue Plan of Care Treatment Plan: Bed Mobility, Concurrent Therapy, Education, Functional Activity Toro, Functional Strength, Group Therapy, Gait, Therapeutic Exercise, Transfers Treatment Duration: Oct 06, 2019 Frequency: 11 times per week Estimated Hrs Per Day: .5 hour per day Patient and/or Family Agrees t: Yes Safety Risks/Education Patient Education: Gait Training, Transfer Techniques, Correct Positioning, Disease Process, Safety Issues Teaching Recipient: Patient, Family Teaching Methods: Demonstration, Discussion, Audiovisual Response to Teaching: Verbalize Understanding, Return Demonstration, Reinforcement Needed Time/GCodes Time In: 15 Time Out: 944 Total Billed Treatment Time: 30 Total Billed Treatment 1 visit GT x 2 30' JOSEPH GLASS PT Sep 14, 2019 10:08
[2019-09-14 12:18] VITALS: BP 112/66
[2019-09-14] MEDS: NYSTATIN ORAL SUSP 5 ML UDC PO SCH ×3 (13:06→23:46)
--- NOTE | 2019-09-14 13:44 | Physical Therapy Daily Note ---
PT Daily Note-Current Subjective NO increase in pain. Appearance Patient returned to bed with call light and tray in reach. Mental Status Patient Orientation: Person, Place, Eyes Open Attachments: Oxygen (2 L) Transfers SCALE: Activities may be completed with or without assistive devices. 8-Bedsbwxebz-lkrgtrx completes the activity by him/herself with no assistance from a helper. 5-Set-up or Clean-up Assistance-helper sets up or cleans up; patient completes activity. [place] assists only prior to or following the activity. 4-Supervision or Touching Assistance-helper provides verbal cues and/or touching/steadying and/or contact guard assistance as patient completes activity. Assistance may be provided throughout the activity or intermittently. 3-Partial/Moderate Assistance-helper does LESS THAN HALF the effort. [place] lifts, holds or supports trunk or limbs, but provides less than half the effort. 2-Substantial/Maximal Assistance-helper does MORE THAN HALF the effort. [place] lifts or holds trunk or limbs and provides more than half the effort. 5-Wzylzkslt-uvnefn does ALL the effort. Patient does none of the effort to complete the activity. Or, the assistance of 2 or more helpers is required for the patient to complete the activity. If activity was not attempted, code reason: 7-Patient Refused. 9-Not Applicable-not attempted and the patient did not perform the activity before the current illness, exacerbation or injury. 10-Not Attempted due to Environmental Limitations-(lack of equipment, weather restraints, etc.). 88-Not Attempted due to Medical Conditions or Safety Concerns. Sit to Lying (QC): 4 (SBA with motivation) Sit to Stand (QC): 4 (SBA) Chair/Mpm-sk-Owzyw Xfer(QC): 5 Toilet Transfer (QC): 5 Weight Bearing Full Weight Bearing Full Weight Bearing Gait Training Does the Patient Walk?: Yes Distance: 675 Walk 10 feet (QC): 5 Walk 50 ft with 2 Turns(QC): 5 Walk 150 ft (QC): 5 Gait Assistive Device: FWW Patient's gait has improved and with safety too. Patient requires cure for jerome ntaining focus on complete current task. Assessment Current Status: Good Progress Patient has a tendency to be self limiting. Requires motivation to complete activities independently. Patient's feet were check with no pressure points seen. PT Short Term Goals Short Term Goals Time Frame: Sep 22, 2019 Roll Left & Right: 5 Sit to lyin Lying to sitting on side of be: 5 Sit to stand: 5 Chair/nta-by-rynmi transfer: 4 (SBA) Toilet transfer: 4 (SBA) Car transfer: 4 Walk 10 feet: 4 (SBA) Walk 50 feet with two turns: 4 (SBA) Walk 150 feet: 4 (SBA) Walking 10ft on uneven surface: 3 PT Heel Cutter Goals Mcfp Goals PT Mcfp Goals Time Frame: Oct 06, 2019 Roll Left & Right (QC): 5 Sit to Lying (QC): 5 Lying-Sitting on Side/Bed(QC): 5 Sit to Stand (QC): 5 Chair/Npw-lw-Ciepk Xfer(QC): 5 Toilet Transfer (QC): 5 Car Transfer (QC): 5 Does the Patient Walk: Yes Walk 10 feet (QC): 5 Walk 50ft with 2 Turns (QC): 5 Walk 150 ft (QC): 5 Walking 10ft on Uneven Surface: 5 PT Plan Problem List Problem List: Activity Tolerance, Functional Strength, Safety, Balance, Gait, Transfer, Bed Mobility Treatment/Plan Treatment Plan: Continue Plan of Care Treatment Plan: Bed Mobility, Concurrent Therapy, Education, Functional Activity Toro, Functional Strength, Group Therapy, Gait, Therapeutic Exercise, Transfers Treatment Duration: Oct 06, 2019 Frequency: 11 times per week Estimated Hrs Per Day: .5 hour per day Patient and/or Family Agrees t: Yes Safety Risks/Education Patient Education: Gait Training, Transfer Techniques, Disease Process, Safety Issues Teaching Recipient: Patient Teaching Methods: Demonstration, Discussion Response to Teaching: Verbalize Understanding, Return Demonstration, Reinforcement Needed Time/GCodes Time In: 1302 Time Out: 1330 Total Billed Treatment Time: 28 Total Billed Treatment 1 visit GT x 2 28' JOSEPH GLASS PT Sep 14, 2019 13:44
--- NOTE | 2019-09-14 14:29 | Occupational Ther Daily Note ---
OT Current Status-Daily Note Subjective Pt seen in bed, semi reclined. Pt agrees to OT tx session. Pt states some pain in LLE (back of LE), and back (sharp/ shooting in movement back to bed); daughter states pt's skin very sensitive. Mental Status/Objective Attachments: Oxygen ADL-Treatment Therapy Code Descriptions/Definitions Functional [place] Measure: 0=Not Assessed/NA 4=Minimal Assistance 1=Total Assistance 5=Supervision or Setup 2=Maximal Assistance 6=Modified [place] 3=Moderate Assistance 7=Complete IndependenceSCALE: Activities may be completed with or without assistive devices. 2-Bvyafzhqua-jungdwl completes the activity by him/herself with no assistance from a helper. 5-Set-up or Clean-up Assistance-helper sets up or cleans up; patient completes activity. [place] assists only prior to or following the activity. 4-Supervision or Touching Assistance-helper provides verbal cues and/or touching/steadying and/or contact guard assistance as patient completes activity. Assistance may be provided throughout the activity or intermittently. 3-Partial/Moderate Assistance-helper does LESS THAN HALF the effort. [place] lifts, holds or supports trunk or limbs, but provides less than half the effort. 2-Substantial/Maximal Assistance-helper does MORE THAN HALF the effort. [place] lifts or holds trunk or limbs and provides more than half the effort. 5-Ixafdpupq-ziqymd does ALL the effort. Patient does none of the effort to complete the activity. Or, the assistance of 2 or more helpers is required for the patient to complete the activity. If activity was not attempted, code reason: 7-Patient Refused. 9-Not Applicable-not attempted and the patient did not perform the activity before the current illness, exacerbation or injury. 10-Not Attempted due to Environmental Limitations-(lack of equipment, weather restraints, etc.). 88-Not Attempted due to Medical Conditions or Safety Concerns. Eating (QC): 6 Oral Hygiene (QC): 7 Shower/Bathe Self (QC): 7 (denies on this date.) Other Treatment Pt's daughter present through session. Pt completes bed mob (supine to sit) with encouragement, increased time, SBA. Pt educated on keeping LLE elevated/ clean/ wearing socks when up/ placed towel under bilateral feet when EOB to decrease risk of increased infection. Pt completes UE/ LE exercises EOB, maintains balance, requires cues for deep breathing/ not holding breath. Pt completes 5-10 reps bilaterally of yellow theraband ex: shoulder flexion, shoulder extension, back flies, shoulder scaption, bicep curls). Pt completes knee extension and calf pumps bilaterally during these exercises to increase balance work. Pt completes with breaks between, requires cues for redirection/ environmental distractions. Pt returns to bed with SBA, bed adjustment to HOB/ centered in bed with max A. Pt left with LLE elevated in bed, pt denies needs, call light in reach, daughter present. Education OT Patient Education: Correct positioning, Exercise program, Home exercise program, Instructions to caregiver, Purpose of tx/functional activities, Safety issues Teaching Recipient: Patient Teaching Methods: Demonstration, Discussion Response to Teaching: Verbalize Understanding, Return Demonstration OT Jail Goals Jail Goals Time Frame: Sep 22, 2019 Eating (QC): 6 Oral Hygiene (QC): 6 Toileting Hygiene (QC): 6 Shower/Bathe Self (QC): 6 Upper Body Dressing (QC): 6 Lower Body Dressing (QC): 6 On/Off Footwear (QC): 6 1=Demonstrate adherence to instructed precautions during ADL tasks. 2=Patient will verbalize/demonstrate understanding of assistive devices/modifications for ADL. 3=Patient will improve strength/tolerance for activity to enable patient to perform ADL's. OT Education/Plan Problem List/Assessment Assessment: Decreased Activ Tolerance, Decreased UE Strength, Dependent Transfers, Edema, Impaired Bed Mobility, Impaired Funct Balance, Impaired I ADL's, Impaired Self-Care Skills Discharge Recommendations Plan/Recommendations: Continue POC Therapy Discharge Recommendati: Scheduled Assistance, Home & Family, Post Acute OT Treatment Plan/Plan of Care Treatment,Training & Education: Yes Patient would benefit from OT for education, treatment and training to promote independence in ADL's, mobility, safety and/or upper extremity function for ADL's. Plan of Care: ADL Retraining, Functional Mobility, UE Funct Exercise/Act Treatment Duration: Sep 22, 2019 Frequency: 5 times per week Estimated Hrs Per Day: .25 hour per day Agreement: Yes Rehab Potential: Fair Time/GCodes Start Time: 13:40 Stop Time: 14:18 Total Time Billed (hr/min): 38 Billed Treatment Time 1, EX 2, ADL (38) IRVING MARTINEZ OTR Sep 14, 2019 14:29
[2019-09-14 16:24] VITALS: BP 103/61
[2019-09-14] MEDS: warFARin 4 MG (COUMADIN) TAB PO SCH (17:17)
[2019-09-14] MEDS: CALCIUM CARB + VIT D 600 MG (CALCARB + D) TAB PO SCH (17:18)
[2019-09-14 19:53] VITALS: BP 94/60
[2019-09-15 00:16] VITALS: BP 100/66
[2019-09-15] MEDS: ACETAMINOPHEN 500 MG TAB (TYLENOL) PO PRN ×4 (01:34→21:53)
[2019-09-15] MEDS: MEROPENEM 500 MG in WATER (STERILE) FOR INJECTION 10 ML IV SCH ×4 (03:28→21:54)
[2019-09-15 03:58] VITALS: BP 105/66
[2019-09-15 04:52] LABS: INR 2.2 (0.8-1.4); PROTHROMBIN TIME PATIENT 25.2 SEC (12.2-14.7)
[2019-09-15] MEDS: LEVOTHYROXINE 88 MCG (LEVOTHORID) TAB PO SCH (06:13)
[2019-09-15] MEDS: KCL 20 MEQ TAB (K-DUR) PO SCH ×2 (06:13→17:49)
[2019-09-15] MEDS: FUROSEMIDE 40 MG (LASIX) TAB PO SCH ×2 (06:13→11:46)
[2019-09-15] MEDS: ASPIRIN E.C. 81 MG (ECOTRIN) TAB PO SCH (06:13)
[2019-09-15] MEDS: LACTOBACILLUS ACIDOPHILUS (PROBIOTIC) CAPSULE PO SCH ×2 (06:13→16:06)
[2019-09-15] MEDS: NYSTATIN ORAL SUSP 5 ML UDC PO SCH ×4 (06:16→21:53)
[2019-09-15 08:00] VITALS: BP 102/73
[2019-09-15] MEDS: FAMOTIDINE 20 MG (PEPCID) TABLET PO SCH ×2 (08:34→21:54)
[2019-09-15] MEDS: guaiFENesin (MUCINEX) 600 MG TAB PO SCH ×2 (08:34→21:53)
[2019-09-15] MEDS: MAGNESIUM OXIDE (MAG-OX)400 MG TAB PO SCH (08:35)
[2019-09-15] MEDS: PANTOPRAZOLE 40 MG (PROTONIX) TAB PO SCH (08:35)
[2019-09-15] MEDS: dilTIAZem120 MG (CARDIZEM CD) CAP PO SCH (08:35)
[2019-09-15] MEDS: SALINE NASAL SPRAY (OCEAN) 45 ML BTL SCH ×2 (08:35→21:53)
--- NOTE | 2019-09-15 08:57 | Progress Note ---
Subjective Subjective Date Seen by Provider: Sep 15, 2019 Time Seen by Provider: 08:50 PT REPORTS THAT SHE IS FEELING BETTER, SHE WAS WALKING IN THE LAN EARLIER TODAY AND SHE WAS MOVING WITHOUT MUCH DIFFICULTY. SHE DENIES CHEST PAIN, SHORTNESS OF BREATH. SHE DENIES ABDOMINAL PAIN, NAUSEA, DIZZINESS. Review of Systems General: Fatigue Pulmonary: No Dyspnea, No Cough Cardiovascular: No: Chest Pain Genitourinary: No Dysuria Neurological: Weakness; No: Confusion Objective Exam Vital Signs Vital Signs - First Documented 09/12/19 09/12/19 09/12/19 14:36 15:58 17:33 Temp 35.3 Pulse 91 Resp 15 B/P (MAP) 114/81 (92) Pulse Ox 97 O2 Delivery Nasal Cannula O2 Flow Rate 2.00 Capillary Refill : Less Than 3 Seconds General Appearance: No Apparent Distress, WD/WN HEENT: PERRL/EOMI, Pharynx Normal Neck: Supple Respiratory: Chest Non Tender, Lungs Clear, Normal Breath Sounds, No Respiratory Distress Cardiovascular: Irregularly Irregular Gastrointestinal: Normal Bowel Sounds, Non Tender, Soft Rectal: Deferred Extremity: Non Tender, No Calf Tenderness, No Pedal Edema Neurologic/Psychiatric: Alert, Oriented x3, Normal Mood/Affect, court security officer II-XII Norm as Tested Skin: Warm/Dry Results Lab Laboratory Tests 09/15/19 04:08: Prothrombin Time 25.2H, INR Comment 2.2H Microbiology 09/12/19 Urine Culture - Final, Complete NO GROWTH Assessment/Plan Assessment/Plan Admission Dx LEFT LOWER EXTREMITY CELLULITIS URINARY TRACT INFECTION WITH GRAM NEGATIVE JOSEPH ATRIAL FIBRILLATION WITH RVR CHRONIC HYPERTENSION CHRONIC ANTICOAGULATION WITH COUMADIN HYPERLIPIDEMIA OSTEOPOROSIS GENERALIZED WEAKNESS WITH FALLING EPISODES LEFT LOWER EXTREMITY CELLULITIS - PT ON MEROPENEM - MONITOR SYMPTOMS/REDNESS/SKIN RESPONSE TO THE ANTIBIOTIC REGIMEN - KEEP LEG ELEVATED URINARY TRACT INFECTION WITH GRAM NEGATIVE JOSEPH - ON MEROPENEM X 5 MORE DAYS ATRIAL FIBRILLATION WITH RVR- - RESUME HOME REGIMEN - TELEMETRY DC'D CHRONIC HYPERTENSION - RESUME HOME REGIMEN - MONITOR PRESSURES ROUTINELY - HOLD DILTIAZEM IF SBP IS LESS THAN 120 OR HEART RATE LESS THAN 55 CHRONIC ANTICOAGULATION WITH COUMADIN - ON COUMADIN REGIMEN, RESTARTED ANTICOAGULATION GOAL 2 - 2.5 HYPERLIPIDEMIA - RESUMED STATIN THERAPY OSTEOPOROSIS - HOLD ALENDRONATE WHILE IN THE HOSPITAL THIS MEDICATION IS NOT VITAL TO HER HEALING PROCESS GENERALIZED WEAKNESS WITH FALLING EPISODES - CONTINUE PHYSICAL THERAPY IN HOSPITAL - STAFF REPORTED THAT SHE DID NOT WANT TO PARTICIPATE IN THERAPY AND WAS A LITTLE IRRITATED WITH STAFF MAKING HER EXERCISE OVER THE PAST FEW DAYS. DVT PROPHYLAXIS WITH COUMADIN - WILL NOT PLACE SCD'S DUE TO LEG INJURY AND EXTREMELY SENSITIVE SKIN ON LOWER EXTREMITIES. GI PROPHYLAXIS WITH PEPCID AND ANTIDIARRHEAL PROPHYLAXIS WITH PROBIOTIC DAILY PLAN IS FOR PT TO BE DC'D TO HER DTR'S HOUSE EARLY NEXT WEEK WITH HOME HEALTH Clinical Quality Measures DVT/VTE Risk/Contraindication: Risk Factor Score Per Nursin Contraindications-Mechi: Patient refusal of tx Other: PT IS ON COUMADIN FOR AFIB AND SHE REFUSED SCDS AND COMPRESSION SOCKS DUE TO HER LEG PAIN FROM THE FALL AND CELLULITIS COLETTE CROWLEY MD Sep 15, 2019 08:56
--- NOTE | 2019-09-15 10:22 | Physical Therapy Daily Note ---
PT Daily Note-Current Subjective No pain reported. Patient does report cold chills PRN Appearance Patient returned to room recliner with feet up and call light and tray in reach. Mental Status Patient Orientation: Person, Place, Eyes Open Attachments: Oxygen (2 L) Transfers SCALE: Activities may be completed with or without assistive devices. 3-Nrrrqpshml-posmrzv completes the activity by him/herself with no assistance from a helper. 5-Set-up or Clean-up Assistance-helper sets up or cleans up; patient completes activity. [place] assists only prior to or following the activity. 4-Supervision or Touching Assistance-helper provides verbal cues and/or touching/steadying and/or contact guard assistance as patient completes activity. Assistance may be provided throughout the activity or intermittently. 3-Partial/Moderate Assistance-helper does LESS THAN HALF the effort. [place] lifts, holds or supports trunk or limbs, but provides less than half the effort. 2-Substantial/Maximal Assistance-helper does MORE THAN HALF the effort. [place] lifts or holds trunk or limbs and provides more than half the effort. 0-Wtredsnjr-ribohg does ALL the effort. Patient does none of the effort to complete the activity. Or, the assistance of 2 or more helpers is required for the patient to complete the activity. If activity was not attempted, code reason: 7-Patient Refused. 9-Not Applicable-not attempted and the patient did not perform the activity before the current illness, exacerbation or injury. 10-Not Attempted due to Environmental Limitations-(lack of equipment, weather restraints, etc.). 88-Not Attempted due to Medical Conditions or Safety Concerns. Sit to Stand (QC): 4 Chair/Msp-ea-Gmemk Xfer(QC): 4 Toilet Transfer (QC): 4 SBA/patient toileted self and performed hand washing at sink Weight Bearing Full Weight Bearing Full Weight Bearing Gait Training Does the Patient Walk?: Yes Distance: 1000' Walk 10 feet (QC): 5 Walk 50 ft with 2 Turns(QC): 5 Walk 150 ft (QC): 5 Gait Assistive Device: FWW Ambulation has improve with posture and gait. Patient has good balance and needs PT to pull o2 tank Exercises Supine Ex: Ankle pumps, Quad Set Supine Reps: 10 Seated Therapy Exercises: Ankle pumps, Long arc quads, Hip flexion Seated Reps: 10 Assessment Current Status: Good Progress Patient is motivated to complete therapy and complete all activities safely. Patient need extra time to stand but can independently with PRN cues for hand placement. PT Short Term Goals Short Term Goals Time Frame: Sep 22, 2019 Roll Left & Right: 5 Sit to lyin Lying to sitting on side of be: 5 Sit to stand: 5 Chair/pdz-me-mjjbn transfer: 4 (SBA) Toilet transfer: 4 (SBA) Car transfer: 4 Walk 10 feet: 4 (SBA) Walk 50 feet with two turns: 4 (SBA) Walk 150 feet: 4 (SBA) Walking 10ft on uneven surface: 3 PT Fdc Goals Fdc Goals PT Drawbridge Operator Goals Time Frame: Oct 06, 2019 Roll Left & Right (QC): 5 Sit to Lying (QC): 5 Lying-Sitting on Side/Bed(QC): 5 Sit to Stand (QC): 5 Chair/Anm-uj-Zfesa Xfer(QC): 5 Toilet Transfer (QC): 5 Car Transfer (QC): 5 Does the Patient Walk: Yes Walk 10 feet (QC): 5 Walk 50ft with 2 Turns (QC): 5 Walk 150 ft (QC): 5 Walking 10ft on Uneven Surface: 5 PT Plan Problem List Problem List: Activity Tolerance, Functional Strength, Safety, Balance, Gait, Bed Mobility Treatment/Plan Treatment Plan: Continue Plan of Care Treatment Plan: Bed Mobility, Concurrent Therapy, Education, Functional Activity Toro, Functional Strength, Group Therapy, Gait, Therapeutic Exercise, Transfers Treatment Duration: Oct 06, 2019 Frequency: 11 times per week Estimated Hrs Per Day: .5 hour per day Patient and/or Family Agrees t: Yes Safety Risks/Education Patient Education: Gait Training, Correct Positioning, Disease Process, Safety Issues Teaching Recipient: Patient Teaching Methods: Demonstration, Discussion, Audiovisual Response to Teaching: Verbalize Understanding, Return Demonstration, Reinforcement Needed Time/GCodes Time In: 905 Time Out: 935 Total Billed Treatment Time: 30 Total Billed Treatment 1 visit FA 15' GT 15' JOSEPH GLASS PT Sep 15, 2019 10:22
--- NOTE | 2019-09-15 10:38 | Occupational Ther Daily Note ---
OT Current Status-Daily Note Subjective Pt seen in recliner chair, denies pain until movement in LLE. Pt agreeable to OT tx session with goals of showering. Pt's daughter enters as getting in to shower. Mental Status/Objective Patient Orientation: Person, Place, Situation Attachments: Oxygen, Telemetry (d/c on this date- did not re-don post shower) ADL-Treatment Therapy Code Descriptions/Definitions Functional [place] Measure: 0=Not Assessed/NA 4=Minimal Assistance 1=Total Assistance 5=Supervision or Setup 2=Maximal Assistance 6=Modified [place] 3=Moderate Assistance 7=Complete IndependenceSCALE: Activities may be completed with or without assistive devices. 7-Nhkegaebrr-rszrwhe completes the activity by him/herself with no assistance from a helper. 5-Set-up or Clean-up Assistance-helper sets up or cleans up; patient completes activity. [place] assists only prior to or following the activity. 4-Supervision or Touching Assistance-helper provides verbal cues and/or touching/steadying and/or contact guard assistance as patient completes activity. Assistance may be provided throughout the activity or intermittently. 3-Partial/Moderate Assistance-helper does LESS THAN HALF the effort. [place] lifts, holds or supports trunk or limbs, but provides less than half the effort. 2-Substantial/Maximal Assistance-helper does MORE THAN HALF the effort. [place] lifts or holds trunk or limbs and provides more than half the effort. 5-Evmvbzioq-lfprbe does ALL the effort. Patient does none of the effort to complete the activity. Or, the assistance of 2 or more helpers is required for the patient to complete the activity. If activity was not attempted, code reason: 7-Patient Refused. 9-Not Applicable-not attempted and the patient did not perform the activity before the current illness, exacerbation or injury. 10-Not Attempted due to Environmental Limitations-(lack of equipment, weather restraints, etc.). 88-Not Attempted due to Medical Conditions or Safety Concerns. Eating (QC): 6 Bathing Location: L Arm, R Arm, L Upper Leg, R Upper Leg, L Lower Leg (including foot), R Lower Leg (including foot), Chest, Abdomen, Buttocks, Perineal Area Shower/Bathe Self (QC): 4 (SUP showerSBA in stance.) Upper Body Dressing (QC): 6 Lower Body Dressing (QC): 3 (min A donning brief on LLE, pt dons pants with IND.) On/Off Footwear: 2 (max A socks, doffed once in chair.) Toileting Hygiene (QC): 4 (SBA in stance (showering)) Other Treatment Pt completes sit to stand with SBA, utilizes 2WW to enter bathroom. Pt requires cues for management of 02 tubing. Pt maintains tubing on during shower, doffs only to don shirt. Pt's IV site wrapped in waterproof. Pt completes ADLs as above. Daughter provides info of home environment (daughter's home to which pt will d/c to:) walk in shower with small ledge and shower bench (built in). Pt does not have area to sit at her own home in shower. Pt sit to instant printer operator shower with use of gb, good balance in stance while bottom hygiene. Pt returns to recliner, all needs met, BLE elevated, daughter elevates LLE higher, pt's socks doffed, call light in reach. Education OT Patient Education: Correct positioning, Instructions to caregiver, Modified ADL techniques, Progress toward Goal/Update tx plan, Safety issues Teaching Recipient: Patient, Family Teaching Methods: Demonstration, Discussion Response to Teaching: Verbalize Understanding, Return Demonstration OT Web Producer Goals Prison Goals Time Frame: Sep 22, 2019 Eating (QC): 6 (met) Oral Hygiene (QC): 6 Toileting Hygiene (QC): 6 Shower/Bathe Self (QC): 6 Upper Body Dressing (QC): 6 (met) Lower Body Dressing (QC): 6 On/Off Footwear (QC): 6 1=Demonstrate adherence to instructed precautions during ADL tasks. 2=Patient will verbalize/demonstrate understanding of assistive oswaldo adan/modifications for ADL. 3=Patient will improve strength/tolerance for activity to enable patient to perform ADL's. OT Education/Plan Problem List/Assessment Assessment: Decreased Activ Tolerance, Decreased UE Strength, Impaired I ADL's, Impaired Self-Care Skills Discharge Recommendations Plan/Recommendations: Continue POC Therapy Discharge Recommendati: Home & Family Equpiment Recommendations-D/C: Bath Chair Treatment Plan/Plan of Care Treatment,Training & Education: Yes Patient would benefit from OT for education, treatment and training to promote independence in ADL's, mobility, safety and/or upper extremity function for ADL's. Plan of Care: ADL Retraining, Functional Mobility, UE Funct Exercise/Act Treatment Duration: Sep 22, 2019 Frequency: 5 times per week Estimated Hrs Per Day: .25 hour per day Agreement: Yes Rehab Potential: Fair Time/GCodes Start Time: 09:43 Stop Time: 10:29 Total Time Billed (hr/min): 46 Billed Treatment Time 1, ADL 3 (46) IRVING MARTINEZ OTR Sep 15, 2019 10:38
--- NOTE | 2019-09-15 14:19 | Physical Therapy Daily Note ---
PT Daily Note-Current Subjective Pt. agrees to Rx and states she is feeling better and hopes to be off O2 and heading home by wednesday. Pt.states her back is uncomfortable in this recliner chair. Pt. remarks after instruction in how to manage head and foot and achieve near zero gravity that she is much more comfortable Pain Numeric Pain Scale: 4 Location: Medial Location Body Site: Back Mental Status Patient Orientation: Normal For Age Attachments: Oxygen (2L) Transfers SCALE: Activities may be completed with or without assistive devices. 8-Rfzmodgtfz-wlvutyn completes the activity by him/herself with no assistance from a helper. 5-Set-up or Clean-up Assistance-helper sets up or cleans up; patient completes activity. [place] assists only prior to or following the activity. 4-Supervision or Touching Assistance-helper provides verbal cues and/or touching/steadying and/or contact guard assistance as patient completes activity. Assistance may be provided throughout the activity or intermittently. 3-Partial/Moderate Assistance-helper does LESS THAN HALF the effort. [place] lifts, holds or supports trunk or limbs, but provides less than half the effort. 2-Substantial/Maximal Assistance-helper does MORE THAN HALF the effort. [place] lifts or holds trunk or limbs and provides more than half the effort. 4-Xtqvhhhsn-lxqptm does ALL the effort. Patient does none of the effort to complete the activity. Or, the assistance of 2 or more helpers is required for the patient to complete the activity. If activity was not attempted, code reason: 7-Patient Refused. 9-Not Applicable-not attempted and the patient did not perform the activity before the current illness, exacerbation or injury. 10-Not Attempted due to Environmental Limitations-(lack of equipment, weather restraints, etc.). 88-Not Attempted due to Medical Conditions or Safety Concerns. all sit to stand SBA to Mod I Weight Bearing Full Weight Bearing Full Weight Bearing Gait Training Does the Patient Walk?: Yes Gait Assistive Device: FWW 800ft, 150 ft SBA no LOB, some instruction for turning with FWW managing safely in small turning area , efficiently etc Treatments instructed pt and daughter in use of recliner to attempt zero gravity position for back discomfort. Pt. states this is more comfortable Assessment Current Status: Good Progress PT Short Term Goals Short Term Goals Time Frame: Sep 22, 2019 Roll Left & Right: 5 Sit to lyin Lying to sitting on side of be: 5 Sit to stand: 5 Chair/gal-np-lvqhi transfer: 4 (SBA) Toilet transfer: 4 (SBA) Car transfer: 4 Walk 10 feet: 4 (SBA) Walk 50 feet with two turns: 4 (SBA) Walk 150 feet: 4 (SBA) Walking 10ft on uneven surface: 3 PT [facility] Goals [place] Assessor Goals PT [facility] Goals Time Frame: Oct 06, 2019 Roll Left & Right (QC): 5 Sit to Lying (QC): 5 Lying-Sitting on Side/Bed(QC): 5 Sit to Stand (QC): 5 Chair/Ice-ws-Ijhkj Xfer(QC): 5 Toilet Transfer (QC): 5 Car Transfer (QC): 5 Does the Patient Walk: Yes Walk 10 feet (QC): 5 Walk 50ft with 2 Turns (QC): 5 Walk 150 ft (QC): 5 Walking 10ft on Uneven Surface: 5 PT Plan Treatment/Plan Treatment Plan: Continue Plan of Care Treatment Plan: Bed Mobility, Concurrent Therapy, Education, Functional Activity Toro, Functional Strength, Group Therapy, Gait, Therapeutic Exercise, Transfers Treatment Duration: Oct 06, 2019 Frequency: 11 times per week Estimated Hrs Per Day: .5 hour per day Patient and/or Family Agrees t: Yes Safety Risks/Education Patient Education: Gait Training, Correct Positioning, Safety Issues Teaching Recipient: Patient Teaching Methods: Demonstration, Discussion Response to Teaching: Verbalize Understanding, Return Demonstration, Reinforcement Needed Time/GCodes Time In: 1335 Time Out: 1400 Total Billed Treatment Time: 25 Total Billed Treatment 1, FA10m,GT15m ELI AMBRIZ SHOT PEENING OPERATOR Sep 15, 2019 14:19
[2019-09-15 15:47] VITALS: BP 106/65
[2019-09-15] MEDS: CALCIUM CARB + VIT D 600 MG (CALCARB + D) TAB PO SCH (16:06)
[2019-09-15] MEDS: warFARin 4 MG (COUMADIN) TAB PO SCH (17:49)
[2019-09-16] MEDS: MEROPENEM 500 MG in WATER (STERILE) FOR INJECTION 10 ML IV SCH ×4 (03:30→21:02)
[2019-09-16] MEDS: LACTOBACILLUS ACIDOPHILUS (PROBIOTIC) CAPSULE PO SCH ×2 (05:39→17:49)
[2019-09-16] MEDS: FUROSEMIDE 40 MG (LASIX) TAB PO SCH ×2 (05:39→11:55)
[2019-09-16] MEDS: LEVOTHYROXINE 88 MCG (LEVOTHORID) TAB PO SCH (05:39)
[2019-09-16] MEDS: NYSTATIN ORAL SUSP 5 ML UDC PO SCH ×3 (05:39→17:49)
[2019-09-16] MEDS: KCL 20 MEQ TAB (K-DUR) PO SCH ×2 (05:39→17:49)
[2019-09-16] MEDS: ASPIRIN E.C. 81 MG (ECOTRIN) TAB PO SCH (05:39)
[2019-09-16 06:10] VITALS: BP 120/76
[2019-09-16 06:16] LABS: INR 2.5 (0.8-1.4); PROTHROMBIN TIME PATIENT 28.5 SEC (12.2-14.7)
[2019-09-16] MEDS: FAMOTIDINE 20 MG (PEPCID) TABLET PO SCH ×2 (08:07→21:02)
[2019-09-16] MEDS: guaiFENesin (MUCINEX) 600 MG TAB PO SCH ×2 (08:07→21:02)
[2019-09-16] MEDS: dilTIAZem120 MG (CARDIZEM CD) CAP PO SCH (08:07)
[2019-09-16] MEDS: MAGNESIUM OXIDE (MAG-OX)400 MG TAB PO SCH (08:07)
[2019-09-16] MEDS: PANTOPRAZOLE 40 MG (PROTONIX) TAB PO SCH (08:07)
[2019-09-16] MEDS: SALINE NASAL SPRAY (OCEAN) 45 ML BTL SCH ×2 (08:08→21:03)
--- NOTE | 2019-09-16 09:09 | Progress Note ---
Subjective Subjective Date Seen by Provider: Sep 16, 2019 Time Seen by Provider: 09:37 No overnight events. She got up and went to the restroom by herself this AM without assitance- she is using a 4WW. She has been up and walking today. She is doing better. left leg still swollen and warm. Feels like she is breathing well. Review of Systems General: No Chills; Fatigue HEENT: No Head Aches Pulmonary: No Dyspnea, No Cough Cardiovascular: No: Chest Pain Gastrointestinal: No: Nausea, Abdominal Pain Genitourinary: No Dysuria Musculoskeletal: leg pain Neurological: Weakness; No: Confusion All Other Systems Reviewed All Other Systems Reviewed: Yes Objective Exam Vital Signs Vital Signs Date Time Temp Pulse Resp B/P (MAP) Pulse Ox O2 Delivery O2 Flow Rate FiO2 09/16/19 06:10 36.7 69 18 120/76 (91) 95 Nasal Cannula 2.00 09/15/19 20:00 Nasal Cannula 2.00 09/15/19 15:47 35.5 86 15 106/65 (79) 99 Nasal Cannula 2.00 I & O 09/16/19 07:00 Intake Total 3454 ml Output Total 550 ml Balance 2904 ml General Appearance: No Apparent Distress, WD/WN HEENT: PERRL/EOMI Neck: Supple Respiratory: Chest Non Tender, Lungs Clear, Normal Breath Sounds, No Respiratory Distress Cardiovascular: Regular Rate, Rhythm, Irregularly Irregular Gastrointestinal: Normal Bowel Sounds, Non Tender, Soft Rectal: Deferred Extremity: Non Tender, No Calf Tenderness, Inflammation (left lower extremity- erythema, warm, edema from cellulitis) Neurologic/Psychiatric: Alert, Oriented x3, Normal Mood/Affect Skin: Warm/Dry Lymphatic: No Adenopathy Results Lab Laboratory Tests 09/16/19 05:35: Prothrombin Time 28.5H, INR Comment 2.5H Microbiology 09/12/19 Urine Culture - Final, Complete NO GROWTH Assessment/Plan Assessment/Plan Admission Status: Other (Swing Bed) Assessment and Plan plan to discharge with daughter early next week. She is requiring continue IV antibiotics to treat her complex infections- cellulitis, UTI. Problems: (1) Left leg cellulitis Assessment & Plan: continue meropenem- good response (2) UTI (urinary tract infection) Assessment & Plan: on meropenem (3) Hypothyroid Assessment & Plan: continue levothyroxine. (4) Paroxysmal A-fib Assessment & Plan: continue warfarin monitor INR. Clinical Quality Measures DVT/VTE Risk/Contraindication: Risk Factor Score Per Nursin Contraindications-Mechi: Patient refusal of tx Other: PT IS ON COUMADIN FOR AFIB AND SHE REFUSED SCDS AND COMPRESSION SOCKS DUE TO HER LEG PAIN FROM THE FALL AND CELLULITIS LISSETT CHAVIRA MD Sep 16, 2019 09:09
--- NOTE | 2019-09-16 10:55 | Physical Therapy Daily Note ---
PT Daily Note-Current Subjective Pt is in the chair and agreeable to treatment. Mental Status Patient Orientation: Person, Place, Time, Situation Attachments: Oxygen Transfers SCALE: Activities may be completed with or without assistive devices. 4-Dnniaekzoa-ghddfxs completes the activity by him/herself with no assistance from a helper. 5-Set-up or Clean-up Assistance-helper sets up or cleans up; patient completes activity. [place] assists only prior to or following the activity. 4-Supervision or Touching Assistance-helper provides verbal cues and/or touching/steadying and/or contact guard assistance as patient completes activity. Assistance may be provided throughout the activity or intermittently. 3-Partial/Moderate Assistance-helper does LESS THAN HALF the effort. [place] lifts, holds or supports trunk or limbs, but provides less than half the effort. 2-Substantial/Maximal Assistance-helper does MORE THAN HALF the effort. [place] lifts or holds trunk or limbs and provides more than half the effort. 2-Tzavplpli-unolpn does ALL the effort. Patient does none of the effort to complete the activity. Or, the assistance of 2 or more helpers is required for the patient to complete the activity. If activity was not attempted, code reason: 7-Patient Refused. 9-Not Applicable-not attempted and the patient did not perform the activity before the current illness, exacerbation or injury. 10-Not Attempted due to Environmental Limitations-(lack of equipment, weather restraints, etc.). 88-Not Attempted due to Medical Conditions or Safety Concerns. Weight Bearing Full Weight Bearing Full Weight Bearing Gait Training Does the Patient Walk?: Yes Distance: 500ft Gait Persons Needed: 1 Gait Assistive Device: FWW Pt is safe with transfers and when managing the walker in the room. She is cognizant of safety when making turns to sit and managing the oxygen line. Assessment Current Status: Good Progress She is ambulating safely in the room and hallway with the walker. She has good stability and is making sound decisions when navigating within the room. PT Short Term Goals Short Term Goals Time Frame: Sep 22, 2019 Roll Left & Right: 5 Sit to lyin Lying to sitting on side of be: 5 Sit to stand: 5 Chair/gew-xn-udzfm transfer: 4 (SBA) Toilet transfer: 4 (SBA) Car transfer: 4 Walk 10 feet: 4 (SBA) Walk 50 feet with two turns: 4 (SBA) Walk 150 feet: 4 (SBA) Walking 10ft on uneven surface: 3 PT Mcfp Goals Media Relations Intern Goals PT Media Relations Intern Goals Time Frame: Oct 06, 2019 Roll Left & Right (QC): 5 Sit to Lying (QC): 5 Lying-Sitting on Side/Bed(QC): 5 Sit to Stand (QC): 5 Chair/Qhl-xd-Shszy Xfer(QC): 5 Toilet Transfer (QC): 5 Car Transfer (QC): 5 Does the Patient Walk: Yes Walk 10 feet (QC): 5 Walk 50ft with 2 Turns (QC): 5 Walk 150 ft (QC): 5 Walking 10ft on Uneven Surface: 5 PT Plan Treatment/Plan Treatment Plan: Continue Plan of Care Treatment Plan: Bed Mobility, Concurrent Therapy, Education, Functional Activity Toro, Functional Strength, Group Therapy, Gait, Therapeutic Exercise, Transfers Treatment Duration: Oct 06, 2019 Frequency: 11 times per week Estimated Hrs Per Day: .5 hour per day Patient and/or Family Agrees t: Yes Time/GCodes Time In: 0815 Time Out: 0840 Total Billed Treatment Time: 25 Total Billed Treatment 1, gt x2 25 ROHITH TALLEY PT Sep 16, 2019 10:55
[2019-09-16] MEDS: ACETAMINOPHEN 500 MG TAB (TYLENOL) PO PRN ×2 (12:00→17:55)
[2019-09-16] MEDS: warFARin 4 MG (COUMADIN) TAB PO SCH (17:48)
[2019-09-16 17:51] VITALS: BP 95/62
[2019-09-16] MEDS: CALCIUM CARB + VIT D 600 MG (CALCARB + D) TAB PO SCH (17:55)
[2019-09-17] MEDS: NYSTATIN ORAL SUSP 5 ML UDC PO SCH ×4 (00:33→17:05)
[2019-09-17] MEDS: MEROPENEM 500 MG in WATER (STERILE) FOR INJECTION 10 ML IV SCH (02:17)
[2019-09-17 04:49] LABS: INR 2.6 (0.8-1.4); PROTHROMBIN TIME PATIENT 28.8 SEC (12.2-14.7)
[2019-09-17] MEDS: ASPIRIN E.C. 81 MG (ECOTRIN) TAB PO SCH (05:21)
[2019-09-17] MEDS: LEVOTHYROXINE 88 MCG (LEVOTHORID) TAB PO SCH (05:21)
[2019-09-17] MEDS: LACTOBACILLUS ACIDOPHILUS (PROBIOTIC) CAPSULE PO SCH ×2 (05:21→17:05)
[2019-09-17] MEDS: KCL 20 MEQ TAB (K-DUR) PO SCH ×2 (05:22→17:05)
[2019-09-17] MEDS: ACETAMINOPHEN 500 MG TAB (TYLENOL) PO PRN ×2 (05:23→14:34)
[2019-09-17 05:29] VITALS: BP 98/65
[2019-09-17] MEDS: FUROSEMIDE 40 MG (LASIX) TAB PO SCH ×2 (06:36→12:09)
[2019-09-17] MEDS: SALINE NASAL SPRAY (OCEAN) 45 ML BTL SCH ×2 (09:38→20:20)
[2019-09-17] MEDS: FAMOTIDINE 20 MG (PEPCID) TABLET PO SCH ×2 (09:38→20:21)
[2019-09-17] MEDS: PANTOPRAZOLE 40 MG (PROTONIX) TAB PO SCH (09:38)
[2019-09-17] MEDS: dilTIAZem120 MG (CARDIZEM CD) CAP PO SCH (09:38)
[2019-09-17] MEDS: MAGNESIUM OXIDE (MAG-OX)400 MG TAB PO SCH (09:38)
[2019-09-17] MEDS: guaiFENesin (MUCINEX) 600 MG TAB PO SCH ×2 (09:38→20:21)
[2019-09-17] MEDS: warFARin 4 MG (COUMADIN) TAB PO SCH (17:05)
[2019-09-17] MEDS: CALCIUM CARB + VIT D 600 MG (CALCARB + D) TAB PO SCH (17:15)
[2019-09-17 17:45] VITALS: BP 120/80
[2019-09-18] MEDS: NYSTATIN ORAL SUSP 5 ML UDC PO SCH ×5 (00:12→23:26)
[2019-09-18] MEDS: FUROSEMIDE 40 MG (LASIX) TAB PO SCH ×2 (05:09→12:21)
[2019-09-18] MEDS: LACTOBACILLUS ACIDOPHILUS (PROBIOTIC) CAPSULE PO SCH ×2 (05:09→16:55)
[2019-09-18] MEDS: KCL 20 MEQ TAB (K-DUR) PO SCH ×2 (05:09→18:06)
[2019-09-18] MEDS: ASPIRIN E.C. 81 MG (ECOTRIN) TAB PO SCH (05:09)
[2019-09-18] MEDS: LEVOTHYROXINE 88 MCG (LEVOTHORID) TAB PO SCH (05:09)
[2019-09-18 05:20] VITALS: BP 115/79
[2019-09-18] MEDS: dilTIAZem120 MG (CARDIZEM CD) CAP PO SCH (08:35)
[2019-09-18] MEDS: PANTOPRAZOLE 40 MG (PROTONIX) TAB PO SCH (08:35)
[2019-09-18] MEDS: FAMOTIDINE 20 MG (PEPCID) TABLET PO SCH ×2 (08:35→20:24)
[2019-09-18] MEDS: guaiFENesin (MUCINEX) 600 MG TAB PO SCH ×2 (08:35→20:24)
[2019-09-18] MEDS: SALINE NASAL SPRAY (OCEAN) 45 ML BTL SCH ×2 (08:36→20:24)
[2019-09-18] MEDS: MAGNESIUM OXIDE (MAG-OX)400 MG TAB PO SCH (08:36)
--- NOTE | 2019-09-18 09:09 | Progress Note ---
Subjective Subjective PT REPORTS THAT SHE IS FEELING BETTER, SHE WAS WALKING IN THE LAN EARLIER TODAY AND SHE WAS MOVING WITHOUT MUCH DIFFICULTY. SHE DENIES CHEST PAIN, SHORTNESS OF BREATH. SHE DENIES ABDOMINAL PAIN, NAUSEA, DIZZINESS. Review of Systems General: No Chills; Fatigue HEENT: No Head Aches Pulmonary: No Dyspnea, No Cough Cardiovascular: No: Chest Pain Gastrointestinal: No: Nausea, Abdominal Pain Genitourinary: No Dysuria Musculoskeletal: leg pain Neurological: Weakness; No: Confusion All Other Systems Reviewed All Other Systems Reviewed: Yes Objective Exam Vital Signs Vital Signs - First Documented 09/12/19 09/12/19 09/12/19 14:36 15:58 17:33 Temp 35.3 Pulse 91 Resp 15 B/P (MAP) 114/81 (92) Pulse Ox 97 O2 Delivery Nasal Cannula O2 Flow Rate 2.00 Capillary Refill : Less Than 3 Seconds General Appearance: No Apparent Distress, WD/WN HEENT: PERRL/EOMI Neck: Supple Respiratory: Chest Non Tender, Lungs Clear, Normal Breath Sounds, No Respiratory Distress Cardiovascular: Regular Rate, Rhythm, Irregularly Irregular Gastrointestinal: Normal Bowel Sounds, Non Tender, Soft Rectal: Deferred Extremity: Non Tender, No Calf Tenderness, Inflammation (left lower extremity- erythema, warm, edema from cellulitis) Neurologic/Psychiatric: Alert, Oriented x3, Normal Mood/Affect Skin: Warm/Dry Lymphatic: No Adenopathy Results Lab Microbiology 09/12/19 Urine Culture - Final, Complete NO GROWTH Assessment/Plan Assessment/Plan Admission Dx LEFT LOWER EXTREMITY CELLULITIS URINARY TRACT INFECTION WITH GRAM NEGATIVE JOSEPH ATRIAL FIBRILLATION WITH RVR CHRONIC HYPERTENSION CHRONIC ANTICOAGULATION WITH COUMADIN HYPERLIPIDEMIA OSTEOPOROSIS GENERALIZED WEAKNESS WITH FALLING EPISODES LEFT LOWER EXTREMITY CELLULITIS - PT ON MEROPENEM - MONITOR SYMPTOMS/REDNESS/SKIN RESPONSE TO THE ANTIBIOTIC REGIMEN - KEEP LEG ELEVATED URINARY TRACT INFECTION WITH GRAM NEGATIVE JOSEPH - ON MEROPENEM X 5 MORE DAYS ATRIAL FIBRILLATION WITH RVR- - RESUME HOME REGIMEN - TELEMETRY DC'D CHRONIC HYPERTENSION - RESUME HOME REGIMEN - MONITOR PRESSURES ROUTINELY - HOLD DILTIAZEM IF SBP IS LESS THAN 120 OR HEART RATE LESS THAN 55 CHRONIC ANTICOAGULATION WITH COUMADIN - ON COUMADIN REGIMEN, RESTARTED ANTICOAGULATION GOAL 2 - 2.5 HYPERLIPIDEMIA - RESUMED STATIN THERAPY OSTEOPOROSIS - HOLD ALENDRONATE WHILE IN THE HOSPITAL THIS MEDICATION IS NOT VITAL TO HER HEALING PROCESS GENERALIZED WEAKNESS WITH FALLING EPISODES - CONTINUE PHYSICAL THERAPY IN HOSPITAL - STAFF REPORTED THAT SHE DID NOT WANT TO PARTICIPATE IN THERAPY AND WAS A LITTLE IRRITATED WITH STAFF MAKING HER EXERCISE OVER THE PAST FEW DAYS. DVT PROPHYLAXIS WITH COUMADIN - WILL NOT PLACE SCD'S DUE TO LEG INJURY AND EXTREMELY SENSITIVE SKIN ON LOWER EXTREMITIES. GI PROPHYLAXIS WITH PEPCID AND ANTIDIARRHEAL PROPHYLAXIS WITH PROBIOTIC DAILY PLAN IS FOR PT TO BE DC'D TO HER DTR'S HOUSE EARLY NEXT WEEK WITH HOME HEALTH Problems: (1) Left leg cellulitis Assessment & Plan: continue meropenem- good response (2) UTI (urinary tract infection) Assessment & Plan: on meropenem (3) Hypothyroid Assessment & Plan: continue levothyroxine. (4) Paroxysmal A-fib Assessment & Plan: continue warfarin monitor INR. Admission Dx LEFT LOWER EXTREMITY CELLULITIS URINARY TRACT INFECTION WITH GRAM NEGATIVE JOSEPH ATRIAL FIBRILLATION WITH RVR CHRONIC HYPERTENSION CHRONIC ANTICOAGULATION WITH COUMADIN HYPERLIPIDEMIA OSTEOPOROSIS GENERALIZED WEAKNESS WITH FALLING EPISODES LEFT LOWER EXTREMITY CELLULITIS - PT ON MEROPENEM - MONITOR SYMPTOMS/REDNESS/SKIN RESPONSE TO THE ANTIBIOTIC REGIMEN - KEEP LEG ELEVATED URINARY TRACT INFECTION WITH GRAM NEGATIVE JOSEPH - ON MEROPENEM X 5 MORE DAYS ATRIAL FIBRILLATION WITH RVR- - RESUME HOME REGIMEN - TELEMETRY DC'D CHRONIC HYPERTENSION - RESUME HOME REGIMEN - MONITOR PRESSURES ROUTINELY - HOLD DILTIAZEM IF SBP IS LESS THAN 120 OR HEART RATE LESS THAN 55 CHRONIC ANTICOAGULATION WITH COUMADIN - ON COUMADIN REGIMEN, RESTARTED ANTICOAGULATION GOAL 2 - 2.5 HYPERLIPIDEMIA - RESUMED STATIN THERAPY OSTEOPOROSIS - HOLD ALENDRONATE WHILE IN THE HOSPITAL THIS MEDICATION IS NOT VITAL TO HER HEALING PROCESS GENERALIZED WEAKNESS WITH FALLING EPISODES - CONTINUE PHYSICAL THERAPY IN HOSPITAL - STAFF REPORTED THAT SHE DID NOT WANT TO PARTICIPATE IN THERAPY AND WAS A LITTLE IRRITATED WITH STAFF MAKING HER EXERCISE OVER THE PAST FEW DAYS. DVT PROPHYLAXIS WITH COUMADIN - WILL NOT PLACE SCD'S DUE TO LEG INJURY AND EXTREMELY SENSITIVE SKIN ON LOWER EXTREMITIES. GI PROPHYLAXIS WITH PEPCID AND ANTIDIARRHEAL PROPHYLAXIS WITH PROBIOTIC DAILY PLAN IS FOR PT TO BE DC'D TO HER DTR'S HOUSE EARLY NEXT WEEK WITH HOME HEALTH Clinical Quality Measures Admission Status Admission Dx LEFT LOWER EXTREMITY CELLULITIS URINARY TRACT INFECTION WITH GRAM NEGATIVE JOSEPH ATRIAL FIBRILLATION WITH RVR CHRONIC HYPERTENSION CHRONIC ANTICOAGULATION WITH COUMADIN HYPERLIPIDEMIA OSTEOPOROSIS GENERALIZED WEAKNESS WITH FALLING EPISODES LEFT LOWER EXTREMITY CELLULITIS - PT ON MEROPENEM - MONITOR SYMPTOMS/REDNESS/SKIN RESPONSE TO THE ANTIBIOTIC REGIMEN - KEEP LEG ELEVATED URINARY TRACT INFECTION WITH GRAM NEGATIVE JOSEPH - ON MEROPENEM X 5 MORE DAYS ATRIAL FIBRILLATION WITH RVR- - RESUME HOME REGIMEN - TELEMETRY DC'D CHRONIC HYPERTENSION - RESUME HOME REGIMEN - MONITOR PRESSURES ROUTINELY - HOLD DILTIAZEM IF SBP IS LESS THAN 120 OR HEART RATE LESS THAN 55 CHRONIC ANTICOAGULATION WITH COUMADIN - ON COUMADIN REGIMEN, RESTARTED ANTICOAGULATION GOAL 2 - 2.5 HYPERLIPIDEMIA - RESUMED STATIN THERAPY OSTEOPOROSIS - HOLD ALENDRONATE WHILE IN THE HOSPITAL THIS MEDICATION IS NOT VITAL TO HER HEALING PROCESS GENERALIZED WEAKNESS WITH FALLING EPISODES - CONTINUE PHYSICAL THERAPY IN HOSPITAL - STAFF REPORTED THAT SHE DID NOT WANT TO PARTICIPATE IN THERAPY AND WAS A LITTLE IRRITATED WITH STAFF MAKING HER EXERCISE OVER THE PAST FEW DAYS. DVT PROPHYLAXIS WITH COUMADIN - WILL NOT PLACE SCD'S DUE TO LEG INJURY AND EXTREMELY SENSITIVE SKIN ON LOWER EXTREMITIES. GI PROPHYLAXIS WITH PEPCID AND ANTIDIARRHEAL PROPHYLAXIS WITH PROBIOTIC DAILY PLAN IS FOR PT TO BE DC'D TO HER DTR'S HOUSE EARLY NEXT WEEK WITH HOME HEALTH DVT/VTE Risk/Contraindication: Risk Factor Score Per Nursin Contraindications-Mechi: Patient refusal of tx Other: PT IS ON COUMADIN FOR AFIB AND SHE REFUSED SCDS AND COMPRESSION SOCKS DUE TO HER LEG PAIN FROM THE FALL AND CELLULITIS COLETTE CROWLEY MD Sep 18, 2019 09:09
[2019-09-18] MEDS: DOXYCYCLINE 100 MG (VIBRAMYCIN) TABLET PO SCH ×2 (10:35→16:53)
--- NOTE | 2019-09-18 11:29 | Occupational Ther Daily Note ---
OT Current Status-Daily Note Subjective Pt seen in recliner chair, pt denies current pain. Pt states she has been on Lasix and has been up/down from toilet and does not need to go. Pt agrees to chair exercises. ADL-Treatment Therapy Code Descriptions/Definitions Functional [place] Measure: 0=Not Assessed/NA 4=Minimal Assistance 1=Total Assistance 5=Supervision or Setup 2=Maximal Assistance 6=Modified [place] 3=Moderate Assistance 7=Complete IndependenceSCALE: Activities may be completed with or without assistive devices. 3-Bvpfwasbbv-pyzopam completes the activity by him/herself with no assistance from a helper. 5-Set-up or Clean-up Assistance-helper sets up or cleans up; patient completes activity. [place] assists only prior to or following the activity. 4-Supervision or Touching Assistance-helper provides verbal cues and/or touching/steadying and/or contact guard assistance as patient completes activity. Assistance may be provided throughout the activity or intermittently. 3-Partial/Moderate Assistance-helper does LESS THAN HALF the effort. [place] lifts, holds or supports trunk or limbs, but provides less than half the effort. 2-Substantial/Maximal Assistance-helper does MORE THAN HALF the effort. [place] lifts or holds trunk or limbs and provides more than half the effort. 2-Ffqsrpmia-ccslhz does ALL the effort. Patient does none of the effort to complete the activity. Or, the assistance of 2 or more helpers is required for the patient to complete the activity. If activity was not attempted, code reason: 7-Patient Refused. 9-Not Applicable-not attempted and the patient did not perform the activity before the current illness, exacerbation or injury. 10-Not Attempted due to Environmental Limitations-(lack of equipment, weather restraints, etc.). 88-Not Attempted due to Medical Conditions or Safety Concerns. Eating (QC): 6 Oral Hygiene (QC): 7 Shower/Bathe Self (QC): 7 Upper Body Dressing (QC): 7 Lower Body Dressing (QC): 7 On/Off Footwear: 7 Toileting Hygiene (QC): 7 Toilet Transfer (QC): 7 Other Treatment Pt denies all ADLs on this date, states she has been up/down and will complete oral care when she completes toileting next time. Pt agrees to yellow theraband exercises: completes 10 reps of the following bilaterally: bicep curls, horizontal adduction, and 12 reps of the following: shoulder flexion to 90*, back extensions, and horizontal abduction. Pt educated on completing calf pumps through day, pt's LLE elevated with additional pillows to ~heart level. Pt denies other needs. Call light in reach. Education OT Patient Education: Correct positioning, Exercise program, Home exercise program, Progress toward Goal/Update tx plan, Purpose of tx/functional activities Teaching Recipient: Patient Teaching Methods: Demonstration, Discussion Response to Teaching: Verbalize Understanding, Return Demonstration OT Shelter Goals Shelter Goals Time Frame: Sep 22, 2019 Eating (QC): 6 (met) Oral Hygiene (QC): 6 Toileting Hygiene (QC): 6 Shower/Bathe Self (QC): 6 Upper Body Dressing (QC): 6 (met) Lower Body Dressing (QC): 6 On/Off Footwear (QC): 6 1=Demonstrate adherence to instructed precautions during ADL tasks. 2=Patient will verbalize/demonstrate understanding of assistive devices/modifications for ADL. 3=Patient will improve strength/tolerance for activity to enable patient to perform ADL's. OT Education/Plan Problem List/Assessment Assessment: Decreased Activ Tolerance, Decreased UE Strength, Impaired I ADL's, Impaired Self-Care Skills Discharge Recommendations Plan/Recommendations: Continue POC Treatment Plan/Plan of Care Treatment,Training & Education: Yes Patient would benefit from OT for education, treatment and training to promote independence in ADL's, mobility, safety and/or upper extremity function for ADL's. Plan of Care: ADL Retraining, Functional Mobility, UE Funct Exercise/Act Treatment Duration: Sep 22, 2019 Frequency: 5 times per week Estimated Hrs Per Day: .25 hour per day Agreement: Yes Rehab Potential: Fair Time/GCodes Start Time: 11:08 Stop Time: 11:25 Total Time Billed (hr/min): 18 Billed Treatment Time 1, EX (18) IRVING MARTINEZ OTR Sep 18, 2019 11:28
--- NOTE | 2019-09-18 11:53 | Physical Therapy Daily Note ---
PT Daily Note-Current Subjective Patient in recliner pre tx, agrees to PT, states she has normal pain all over but nothing out of the ordinary. Patient does not have O2 on, will check sats after ambulation. Appearance Patient in recliner post tx with nurse call, phone, tray, all needs met, pillow support under legs and legs elevated. Mental Status Patient Orientation: Person, Place, Situation Transfers SCALE: Activities may be completed with or without assistive devices. 9-Inxjefpnpc-ikmgvnf completes the activity by him/herself with no assistance from a helper. 5-Set-up or Clean-up Assistance-helper sets up or cleans up; patient completes activity. [place] assists only prior to or following the activity. 4-Supervision or Touching Assistance-helper provides verbal cues and/or touching/steadying and/or contact guard assistance as patient completes activity. Assistance may be provided throughout the activity or intermittently. 3-Partial/Moderate Assistance-helper does LESS THAN HALF the effort. [place] l ifts, holds or supports trunk or limbs, but provides less than half the effort. 2-Substantial/Maximal Assistance-helper does MORE THAN HALF the effort. [place] lifts or holds trunk or limbs and provides more than half the effort. 1-Zrowdwfad-qkcrzj does ALL the effort. Patient does none of the effort to complete the activity. Or, the assistance of 2 or more helpers is required for t he patient to complete the activity. If activity was not attempted, code reason: 7-Patient Refused. 9-Not Applicable-not attempted and the patient did not perform the activity before the current illness, exacerbation or injury. 10-Not Attempted due to Environmental Limitations-(lack of equipment, weather restraints, etc.). 88-Not Attempted due to Medical Conditions or Safety Concerns. Sit to Stand (QC): 6 Chair/Dgx-jx-Xpffe Xfer(QC): 6 Weight Bearing Full Weight Bearing Full Weight Bearing Gait Training Distance: 600' Walk 10 feet (QC): 6 Walk 50 ft with 2 Turns(QC): 6 Walk 150 ft (QC): 6 Gait Assistive Device: FWW brisk, steady ambulation, no SOB Treatments ambulation Assessment Current Status: Fair Progress O2 sats 95% after ambulation PT Short Term Goals Short Term Goals Time Frame: Sep 22, 2019 Roll Left & Right: 5 Sit to lyin Lying to sitting on side of be: 5 Sit to stand: 5 Chair/iey-cs-bkefv transfer: 4 (SBA) Toilet transfer: 4 (SBA) Car transfer: 4 Walk 10 feet: 4 (SBA) Walk 50 feet with two turns: 4 (SBA) Walk 150 feet: 4 (SBA) Walking 10ft on uneven surface: 3 PT Department Traffic Freight Router Goals Department Traffic Freight Router Goals PT [facility] Goals Time Frame: Oct 06, 2019 Roll Left & Right (QC): 5 Sit to Lying (QC): 5 Lying-Sitting on Side/Bed(QC): 5 Sit to Stand (QC): 5 Chair/Zvn-jp-Gyfyx Xfer(QC): 5 Toilet Transfer (QC): 5 Car Transfer (QC): 5 Does the Patient Walk: Yes Walk 10 feet (QC): 5 Walk 50ft with 2 Turns (QC): 5 Walk 150 ft (QC): 5 Walking 10ft on Uneven Surface: 5 1 Step (curb) (QC): 4 4 Steps (QC): 4 12 Steps (QC): 88 Picking up an Object (QC): 88 Wheel 50 feet with 2 turns (QC: 9 Wheel 150 feet: 9 PT Plan Problem List Problem List: Activity Tolerance, Functional Strength, Safety, Balance, Gait, Transfer Treatment/Plan Treatment Plan: Continue Plan of Care Treatment Plan: Bed Mobility, Concurrent Therapy, Education, Functional Activity Toro, Functional Strength, Group Therapy, Gait, Therapeutic Exercise, Transfers Treatment Duration: Oct 06, 2019 Frequency: 11 times per week Estimated Hrs Per Day: .5 hour per day Patient and/or Family Agrees t: Yes Safety Risks/Education Patient Education: Gait Training, Transfer Techniques, Correct Positioning, Safety Issues Teaching Recipient: Patient Teaching Methods: Demonstration, Discussion Response to Teaching: Reinforcement Needed Time/GCodes Time In: 1130 Time Out: 1145 Total Billed Treatment Time: 15 Total Billed Treatment 1 visit GT 15' JORGE L ARRIAGA PT Sep 18, 2019 11:53
[2019-09-18] MEDS ORDERED: CALCIUM CARB + VIT D 600 MG (CALCARB + D) TAB PO SCH (12:00)
--- NOTE | 2019-09-18 14:15 | NUR ---
Pastoral care visit.
--- NOTE | 2019-09-18 14:49 | Physical Therapy Daily Note ---
PT Daily Note-Current Subjective Patient in recliner pre tx, agrees to PT, has no complaints of pain. Appearance Patient in bed post tx with nurse call, phone, tray, all needs met. Mental Status Patient Orientation: Person, Place, Situation Transfers SCALE: Activities may be completed with or without assistive devices. 7-Hdeztzczja-vhpuqlg completes the activity by him/herself with no assistance from a helper. 5-Set-up or Clean-up Assistance-helper sets up or cleans up; patient completes activity. [place] assists only prior to or following the activity. 4-Supervision or Touching Assistance-helper provides verbal cues and/or touching /steadying and/or contact guard assistance as patient completes activity. Assistance may be provided throughout the activity or intermittently. 3-Partial/Moderate Assistance-helper does LESS THAN HALF the effort. [place] lifts, holds or supports trunk or limbs, but provides less than half the effort. 2-Substantial/Maximal Assistance-helper does MORE THAN HALF the effort. [place] lifts or holds trunk or limbs and provides more than half the effort. 6-Ilmzvogqi-qbtfko does ALL the effort. Patient does none of the effort to complete the activity. Or, the assistance of 2 or more helpers is required for the patient to complete the activity. If activity was not attempted, code reason: 7-Patient Refused. 9-Not Applicable-not attempted and the patient did not perform the activity before the current illness, exacerbation or injury. 10-Not Attempted due to Environmental Limitations-(lack of equipment, weather restraints, etc.). 88-Not Attempted due to Medical Conditions or Safety Concerns. Roll Left & Right (QC): 6 Sit to Lying (QC): 6 Sit to Stand (QC): 6 Chair/Lsu-ed-Oiifo Xfer(QC): 6 Weight Bearing Full Weight Bearing Full Weight Bearing Gait Training Distance: 600' Walk 10 feet (QC): 6 Walk 50 ft with 2 Turns(QC): 6 Walk 150 ft (QC): 6 Gait Assistive Device: FWW steady brisk ambulation, no SOB Treatments transfers, bed mobility, ambulation Assessment Current Status: Fair Progress improving endurance PT Short Term Goals Short Term Goals Time Frame: Sep 22, 2019 Roll Left & Right: 5 Sit to lyin Lying to sitting on side of be: 5 Sit to stand: 5 Chair/gcf-eb-ysica transfer: 4 (SBA) Toilet transfer: 4 (SBA) Car transfer: 4 Walk 10 feet: 4 (SBA) Walk 50 feet with two turns: 4 (SBA) Walk 150 feet: 4 (SBA) Walking 10ft on uneven surface: 3 PT Sustainable Development Policy Analyst Goals Sustainable Development Policy Analyst Goals PT Sustainable Development Policy Analyst Goals Time Frame: Oct 06, 2019 Roll Left & Right (QC): 5 Sit to Lying (QC): 5 Lying-Sitting on Side/Bed(QC): 5 Sit to Stand (QC): 5 Chair/Pdo-if-Jabue Xfer(QC): 5 Toilet Transfer (QC): 5 Car Transfer (QC): 5 Does the Patient Walk: Yes Walk 10 feet (QC): 5 Walk 50ft with 2 Turns (QC): 5 Walk 150 ft (QC): 5 Walking 10ft on Uneven Surface: 5 1 Step (curb) (QC): 4 4 Steps (QC): 4 12 Steps (QC): 88 Picking up an Object (QC): 88 Wheel 50 feet with 2 turns (QC: 9 Wheel 150 feet: 9 PT Plan Problem List Problem List: Activity Tolerance, Functional Strength, Safety, Balance, Gait, Transfer Treatment/Plan Treatment Plan: Continue Plan of Care Treatment Plan: Bed Mobility, Concurrent Therapy, Education, Functional Activity Toro, Functional Strength, Group Therapy, Gait, Therapeutic Exercise, Transfers Treatment Duration: Oct 06, 2019 Frequency: 11 times per week Estimated Hrs Per Day: .5 hour per day Patient and/or Family Agrees t: Yes Safety Risks/Education Patient Education: Gait Training, Transfer Techniques, Correct Positioning, Safety Issues Teaching Recipient: Patient Teaching Methods: Demonstration, Discussion Response to Teaching: Reinforcement Needed Time/GCodes Time In: 1430 Time Out: 1444 Total Billed Treatment Time: 14 Total Billed Treatment 1 visit GT 14' JORGE L ARRIAGA PT Sep 18, 2019 14:49
[2019-09-18] MEDS: ACETAMINOPHEN 500 MG TAB (TYLENOL) PO PRN (16:54)
[2019-09-18] MEDS: warFARin 4 MG (COUMADIN) TAB PO SCH (18:06)
[2019-09-18 18:22] VITALS: BP 101/63
[2019-09-19] MEDS: LEVOTHYROXINE 88 MCG (LEVOTHORID) TAB PO SCH (06:07)
[2019-09-19] MEDS: NYSTATIN ORAL SUSP 5 ML UDC PO SCH (06:07)
[2019-09-19] MEDS: KCL 20 MEQ TAB (K-DUR) PO SCH (06:07)
[2019-09-19] MEDS: LACTOBACILLUS ACIDOPHILUS (PROBIOTIC) CAPSULE PO SCH (06:07)
[2019-09-19] MEDS: ASPIRIN E.C. 81 MG (ECOTRIN) TAB PO SCH (06:07)
[2019-09-19 06:11] VITALS: BP 118/68
[2019-09-19 06:40] LABS: HEMOGLOBIN 12.7 G/DL (11.5-16.0); MEAN PLATELET VOLUME 10.7 FL (7.4-10.4); RED CELL DISTRIBUTION WIDTH 17.6 % (10.0-14.5); WHITE BLOOD COUNT 12.8 10^3/uL (4.3-11.0)
[2019-09-19] MEDS: FUROSEMIDE 40 MG (LASIX) TAB PO SCH (06:42)
[2019-09-19] MEDS: DOXYCYCLINE 100 MG (VIBRAMYCIN) TABLET PO SCH (06:42)
[2019-09-19 06:54] LABS: INR 2.1 (0.8-1.4); PROTHROMBIN TIME PATIENT 24.5 SEC (12.2-14.7)
[2019-09-19 06:58] LABS: CALCIUM 8.7 MG/DL (8.5-10.1); CREATININE SERUM 0.91 MG/DL (0.60-1.30); POTASSIUM 4.2 MMOL/L (3.6-5.0)
[2019-09-19] MEDS: guaiFENesin (MUCINEX) 600 MG TAB PO SCH (09:01)
[2019-09-19] MEDS: dilTIAZem120 MG (CARDIZEM CD) CAP PO SCH (09:01)
[2019-09-19] MEDS: FAMOTIDINE 20 MG (PEPCID) TABLET PO SCH (09:01)
[2019-09-19] MEDS: SALINE NASAL SPRAY (OCEAN) 45 ML BTL SCH (09:02)
[2019-09-19] MEDS: PANTOPRAZOLE 40 MG (PROTONIX) TAB PO SCH (09:02)
[2019-09-19] MEDS: MAGNESIUM OXIDE (MAG-OX)400 MG TAB PO SCH (09:02)
--- NOTE | 2019-09-19 09:23 | Physical Therapy Daily Note ---
PT Daily Note-Current Subjective Pt in bed, agreeable to treatment. Pain level 3/10 (L) ankle area. Pt reports overall improvement. Mental Status Patient Orientation: Person, Place, Situation Transfers SCALE: Activities may be completed with or without assistive devices. 6-Ukyulpgikp-vpfhesu completes the activity by him/herself with no assistance from a helper. 5-Set-up or Clean-up Assistance-helper sets up or cleans up; patient completes activity. [place] assists only prior to or following the activity. 4-Supervision or Touching Assistance-helper provides verbal cues and/or touching/steadying and/or contact guard assistance as patient completes activ ity. Assistance may be provided throughout the activity or intermittently. 3-Partial/Moderate Assistance-helper does LESS THAN HALF the effort. [place] lifts, holds or supports trunk or limbs, but provides less than half the effort. 2-Substantial/Maximal Assistance-helper does MORE THAN HALF the effort. [place] lifts or holds trunk or limbs and provides more than half the effort. 8-Mbvfsbkyy-pjbmwe does ALL the effort. Patient does none of the effort to complete the activity. Or, the assistance of 2 or more helpers is required for the patient to complete the activity. If activity was not attempted, code reason: 7-Patient Refused. 9-Not Applicable-not attempted and the patient did not perform the activity before the current illness, exacerbation or injury. 10-Not Attempted due to Environmental Limitations-(lack of equipment, weather restraints, etc.). 88-Not Attempted due to Medical Conditions or Safety Concerns. Weight Bearing Full Weight Bearing Full Weight Bearing Exercises Supine Ex: Bridging, Ankle pumps, Quad Set, Glut sets Supine Reps: 20 Treatments Transfers in/out of bed mod (I). Pt amb with FWW and CGA-SBA x 1500(+) ft. Assessment Current Status: Good Progress Good tolerance, no SOB. Pt demo good endurance. Back to bed with call light and all needs met. PT Short Term Goals Short Term Goals Time Frame: Sep 22, 2019 Roll Left & Right: 5 Sit to lyin Lying to sitting on side of be: 5 Sit to stand: 5 Chair/zwj-mi-xzubm transfer: 4 (SBA) Toilet transfer: 4 (SBA) Car transfer: 4 Walk 10 feet: 4 (SBA) Walk 50 feet with two turns: 4 (SBA) Walk 150 feet: 4 (SBA) Walking 10ft on uneven surface: 3 PT Biological Chemist Goals Biological Chemist Goals PT Biological Chemist Goals Time Frame: Oct 06, 2019 Roll Left & Right (QC): 5 Sit to Lying (QC): 5 Lying-Sitting on Side/Bed(QC): 5 Sit to Stand (QC): 5 Chair/Krk-or-Ymizh Xfer(QC): 5 Toilet Transfer (QC): 5 Car Transfer (QC): 5 Does the Patient Walk: Yes Walk 10 feet (QC): 5 Walk 50ft with 2 Turns (QC): 5 Walk 150 ft (QC): 5 Walking 10ft on Uneven Surface: 5 1 Step (curb) (QC): 4 4 Steps (QC): 4 12 Steps (QC): 88 Picking up an Object (QC): 88 Wheel 50 feet with 2 turns (QC: 9 Wheel 150 feet: 9 PT Plan Treatment/Plan Treatment Plan: Continue Plan of Care Treatment Plan: Bed Mobility, Concurrent Therapy, Education, Functional Activity Toro, Functional Strength, Group Therapy, Gait, Therapeutic Exercise, Transfers Treatment Duration: Oct 06, 2019 Frequency: 11 times per week Estimated Hrs Per Day: .5 hour per day Patient and/or Family Agrees t: Yes Time/GCodes Time In: 840 Time Out: 900 Total Billed Treatment Time: 20 Total Billed Treatment 1, ther ex 5', Gait 15' UMA DRAKE CPTA Sep 19, 2019 09:23
--- NOTE | 2019-09-19 09:34 | Discharge Summary ---
Diagnosis/Chief Complaint Date of Admission Sep 12, 2019 at 09:19 Date of Discharge Discharge Summary Discharge Physical Examination Allergies: Coded Allergies: Sulfa (Sulfonamide Antibiotics) (Verified Allergy, Mild, RASH, 10/26/18) Vitals & I&Os Vital Signs Date Time Temp Pulse Resp B/P (MAP) Pulse Ox O2 Delivery O2 Flow Rate FiO2 09/19/19 06:11 36.5 85 20 118/68 (85) 97 Room Air 09/18/19 10:18 1.00 Hospital Course Pending Labs Laboratory Tests 09/19/19 05:45: White Blood Count 12.8, Red Blood Count 4.23, Hemoglobin 12.7, Hematocrit 40, Mean Corpuscular Volume 94, Mean Corpuscular Hemoglobin 30, Mean Corpuscular Hemoglobin Concent 32, Red Cell Distribution Width 17.6, Platelet Count 445, Mean Platelet Volume 10.7, Prothrombin Time 24.5, INR Comment 2.1, Sodium Level 142, Potassium Level 4.2, Chloride Level 102, Carbon Dioxide Level 31, Anion Gap 9, Blood Urea Nitrogen 30, Creatinine 0.91, Estimat Glomerular Filtration Rate 59, BUN/Creatinine Ratio 33, Glucose Level 86, Calcium Level 8.7 Discharge Instructions to patient/family Please see electronic discharge instructions given to patient. Discharge Medications Reviewed and agree with Discharge Medication list on patient's Discharge Instruction sheet Clinical Quality Measures DVT/VTE Risk/Contraindication: Risk Factor Score Per Nursin Contraindications-Mechi: Patient refusal of tx Other: PT IS ON COUMADIN FOR AFIB AND SHE REFUSED SCDS AND COMPRESSION SOCKS DUE TO HER LEG PAIN FROM THE FALL AND CELLULITIS COLETTE CROWLEY MD Sep 19, 2019 09:33
[2019-09-19] MEDS ORDERED: DILT-27 PO (09:35)
[2019-09-19] MEDS ORDERED: DOXY100T2 PO (09:35)
--- NOTE | 2019-09-19 09:38 | D/C HH Face to Face Order ---
D/C Face to Face Orders Reconcile Patient Problems Problems Reviewed?: Yes Instructions for Patient Via [facility], Patient Instructions/FollowUp: 1 week follow up via telemedicine at the office Physician to follow Patient: quentin Discharge Diet for Home: Regular Diet Patient Problems: cellulitis, htn, afib, chronic anticoagulation Patient Data-Allergies,Ht & Wt Patient Allergies: Coded Allergies: Sulfa (Sulfonamide Antibiotics) (Verified Allergy, Mild, RASH, 10/26/18) Height (Feet): 5 Height (Inches): 7.00 Weight (Pounds): 209 Weight (Ounces): 0.0 Home Health Need/Face to Face Date of Face to Face: Sep 19, 2019 Clinical Findings: Generalized weakness and fatigue, Muscle weakness, Pain with ambulation I have seen Pt ntqk-kx-apln: Yes Discharged To: Home Diagnosis/Conditions: cellulitis, htn, afib, chronic anticoagulation Patient is Homebound due to: Muscle weakness Homebound Status Due to the above stated illness, injury or surgical procedure (medical condition or diagnosis) and associated clinical findings, the patient is homebound because of his/her inability to leave home except with aid of a supportive device and/or person AND leaving the home requires a considerable and taxing effort or is medically contraindicated. Pt req the following assistanc: Walker Home Health Nursing Orders Home Health Services Order: Nursing Services, Physical Therapy-Evaluate & Treat inr every 2 days Home Health Lab Orders May use PT/INR meter: Yes Planned Date for 1st INR: Sep 21, 2019 Goal INR Range: 2.0 - 2.5 Therapy Orders Therapy Orders: PT to assess for OT Therapy Specific Orders: Increase strength/endurance Certify Stmt I certify that this patient is under my care and that I, a nurse practitioner or a physician; a client account assistant working with me, had a face to face encounter that - meets the physician face to face encounter requirements with this patient as dated. COLETTE CROWLEY MD Sep 19, 2019 09:38
--- NOTE | 2019-09-19 10:11 | NUR ---
CM FINALIZED DISCHARGE PLAN: Patient is dismissing to home with her daughter Danna today et new need for Home Health Care for Nursing et Physical Therapy. Patient initially elected [facility] for her [facility] provider but they will not be able to accept d/t staffing. Secondary election of [facility]. Referral faxed et they have reported acceptance. She denies any need for additional medical equipment at this time. She reports no further needs.
[2019-09-19 10:45] VITALS: BP 118/68
--- NOTE | 2019-09-20 10:11 | Therapy Team Discharge Summary ---
Therapy Discharge Summary Discharge Recommendations Date of Discharge Sep 19, 2019 at 10:45 Occupational Therapy Pt admitted [facility] on 09/12/2019 with dx of cellulitus LLE. Prior to hospitalizat ion, pt was independent with bathing, dressing, and cooking but required assistance with laundry due to her washer/dryer being in her basement. Upon admission, pt was independent wtih feeding, set up with oral hygiene, CGA with showering, CGA upper/lower body dressing, SBA footwear, and CGA toileting/toilet transfer. OT tx focused on increasing UE strength and functional endurance in order to increase independence with ADL and functional mobility. At discharge, pt was independent with feeding, set up oral hygiene, supervision shower, independent upper body dressing, min A lower body dressing, max A footwear, and SBA toileting/toilet transfer. Pt met goals of independence with feeding and upper body dressing, but she did not meet other goals prior to discharge. Pt discharged from facility on 09/19/2019, thus d/c from OT services at this time. Decreased Activ Tolerance, Decreased UE Strength, Impaired I ADL's, Impaired Self-Care Skills PT Torch Operator Goals Longterm Goals PT Longterm Goals Time Frame: Oct 06, 2019 Roll Left to Right (QC): 5 Sit to Lying (QC): 5 Lying-Sitting on Side/Bed(QC): 5 Sit to Stand (QC): 5 Chair/Ksk-oj-Zjyoh Xfer(QC): 5 Car Transfer (QC): 5 Does the Patient Walk: Yes Walk 10 feet (QC): 5 Walk 10ft-Uneven Surface(QC): 5 Walk 50ft with 2 Turns (QC): 5 Walk 150 ft (QC): 5 Wheel 50 feet with 2 turns (QC: 9 1 Step (curb) (QC): 4 4 Steps (QC): 4 12 Steps (QC): 88 Picking up an Object (QC): 88 OT Torch Operator Goals Longterm Goals Time Frame: Sep 22, 2019 Eating (QC): 6 (met) Oral Hygiene (QC): 6 (not met) Shower/Bathe Self (QC): 6 (not met, supervision) Upper Body Dressing (QC): 6 (met) Lower Body Dressing (QC): 6 (not met, min A) On/Off Footwear (QC): 6 (not met, max A) Toileting Hygiene (QC): 6 (not met, SBA) Toilet/Commode Transfer (QC): 5 (not met, SBA) 1=Demonstrate adherence to instructed precautions during ADL tasks. 2=Patient will verbalize/demonstrate understanding of assistive devices/ modifications for ADL. 3=Patient will improve strength/tolerance for activity to enable patient to perform ADL's. JORDI SNEED OT Sep 20, 2019 10:11
--- NOTE | 2019-09-21 11:04 | Therapy Team Discharge Summary ---
Therapy Discharge Summary Discharge Recommendations Date of Discharge Sep 19, 2019 at 10:45 Physical Therapy this patient was transferred to swing bed from acute due to dx of LE cellulitis. Pt's PLOF was indep with functional mobiltiy. Upon admission to [facility], she was generally SB to CGA with transfers, bed mobilty and gait with limited functional activity tolerance and safety. Treatment focused on functional strength and balance to improve transfers, bed mobility and gait. she has made good progress and is mod indep with bed mobiltiy and transfers. Her gait varies from mod indep to SB-CGA, as she tends to walk quickly and with brisk pattern. Pt to discharge home with family support and recommned follow up [facility] services. Will DC from PT. Occupational Therapy Decreased Activ Tolerance, Decreased UE Strength, Impaired I ADL's, Impaired Self-Care Skills PT Senior Living Goals Senior Living Goals PT Rn Labor And Delivery Goals Time Frame: Oct 06, 2019 Roll Left to Right (QC): 5 (met) Sit to Lying (QC): 5 (met) Lying-Sitting on Side/Bed(QC): 5 (met) Sit to Stand (QC): 5 (met) Chair/Rta-vx-Uslda Xfer(QC): 5 (met) Car Transfer (QC): 5 (nt) Does the Patient Walk: Yes Walk 10 feet (QC): 5 (4-6 scored) Walk 10ft-Uneven Surface(QC): 5 Walk 50ft with 2 Turns (QC): 5 (scored 4-6) Walk 150 ft (QC): 5 (scored 4-5) Wheel 50 feet with 2 turns (QC: 9 1 Step (curb) (QC): 4 4 Steps (QC): 4 12 Steps (QC): 88 Picking up an Object (QC): 88 Patient is generally mod indep with bed mobility and transfers and mod indep with SBA with gait long distances. OT Rn Labor And Delivery Goals Senior Living Goals Time Frame: Sep 22, 2019 Eating (QC): 6 (met) Oral Hygiene (QC): 6 (not met) Shower/Bathe Self (QC): 6 (not met, supervision) Upper Body Dressing (QC): 6 (met) Lower Body Dressing (QC): 6 (not met, min A) On/Off Footwear (QC): 6 (not met, max A) Toileting Hygiene (QC): 6 (not met, SBA) Toilet/Commode Transfer (QC): 5 (not met, SBA) 1=Demonstrate adherence to instructed precautions during ADL tasks. 2=Patient will verbalize/demonstrate understanding of assistive devices/modifications for ADL. 3=Patient will improve strength/tolerance for activity to enable patient to perform ADL's. ALEXANDR RINCON PT Sep 21, 2019 11:04
== END 2019-09-19 10:45 | disposition home health service (06) | DRG 603 ==
LOC: 4TH 09:19
PROVIDERS: ADMIT Family Medicine; ATTEND Family Medicine
DX: L03.116 Cellulitis of left lower limb (principal); N39.0 Urinary tract infection, site not specified; I48.0 Paroxysmal atrial fibrillation; I10 Essential (primary) hypertension; E78.5 Hyperlipidemia, unspecified; M81.0 Age-related osteoporosis without current pathological fracture; R53.1 Weakness; E03.9 Hypothyroidism, unspecified; A49.9 Bacterial infection, unspecified; Z79.01 Long term (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; Z91.81 History of falling
CPT/HCPCS: 36415; 80048; 80053; 81000; 85027; 85610; 87088

== ENCOUNTER → 2020-03-18 | Outpatient (CLI) | payer MEDICARE, OTHER ==
[~2020-03-18] MED LIST changes: +ASPI-1238 PO; -ASPI-983 PO; +DILT-27 PO; +DOXY100T2 PO; +WARF4TAB3 PO; -WARF4TAB70 PO; -fentaNYL INJECTION 100 MCG/2 ML AMP IV PRN
--- NOTE | 2020-03-18 12:14 | Diagnostic Imaging Report ---
INDICATION: Injury to the right foot with right foot pain. TIME OF EXAM: 11:38 AM 3 views of the right foot were obtained. FINDINGS: Severe degenerative changes at the 1st MTP joint. The metatarsals appear to be intact. Phalanges appear intact. Midfoot and hindfoot are unremarkable apart from a plantar calcaneal spur. No fractures are seen. IMPRESSION: Chronic changes. No acute bony abnormality is identified. Dictated by: Dictated on workstation # [id number]
== END ==
LOC: RAD 11:09
PROVIDERS: ATTEND Nurse Practitioner Family
DX: S99.921A Unspecified injury of right foot, initial encounter (principal); M19.071 Primary osteoarthritis, right ankle and foot
CPT/HCPCS: 73630

== ENCOUNTER → 2021-03-18 | Outpatient (CLI) | payer MEDICARE, OTHER ==
[~2021-03-18] MED LIST changes: -ALEN35TA13 PO; +ALEN35TA51 PO; -CALC-6 PO; +CALC1TAB84 PO; -CIPR500T4 PO; +CIPR500T5 PO
--- NOTE | 2021-03-18 18:23 | Diagnostic Imaging Report ---
INDICATION: Screening. The current study was also evaluated with a Computer Aided Detection (CAD) system. 3-D Tomographic imaging was also performed. COMPARISON: 08/01/2019, 07/25/2018 and 07/21/2017 FINDINGS: There are scattered fibroglandular densities. There are extensive vascular calcifications. There are benign-type calcifications. There is no new dominant mass, spiculated lesion or suspicious calcification identified. Skin, nipples and axillae are unremarkable. IMPRESSION: Category 2 benign. ACR BI-RADS Category 2: Benign findings. Result letter will be mailed to the patient. Note: At least 10% of breast cancer is not imaged by mammography. Dictated by: Dictated on workstation # [id number]
== END ==
LOC: RAD 15:25
PROVIDERS: ATTEND Family Medicine
DX: Z12.31 Encounter for screening mammogram for malignant neoplasm of breast (principal); Z85.3 Personal history of malignant neoplasm of breast; Z78.0 Asymptomatic menopausal state
CPT/HCPCS: 77063; 77067

== ENCOUNTER → 2021-08-12 | Outpatient (CLI) | payer MEDICARE, OTHER ==
[~2021-08-12] MED LIST changes: -ALEN35TA51 PO; +ALEN35TA53 PO; -LISI2.5T PO; +LISI2.5T13 PO; +POTA-169 PO; -POTA20TA8 PO; -POTA99TA21 PO; +POTA99TA26 PO
--- NOTE | 2021-08-12 15:32 | Diagnostic Imaging Report ---
INDICATION: Postmenopausal COMPARISON: 08/01/2019 FINDINGS: The bone marrow density of the spine, the hips and the femoral necks was measured. The total T score for the spine is -0.7. On the prior exam, the T score was -1.2. The total T score for the left hip is -2.2 and for the right hip -2.4. On the prior exam, the respective T scores were -2.1 and -2.3. The T score for the left femoral neck is -2.8 and for the right femoral neck -2.7. On the previous study, the respective T scores for each hip was -2.6. AP Spine L1-L4: [BMD (g/cm2): 1.112] [T-Score: -0.7] [Z-Score: 0.3] [BMD Previous: 1.056] [BMD % Change: 5.3] LT Hip Neck: [BMD (g/cm2): 0.651] [T-Score: -2.8] [Z-Score: -1.1] LT Hip Total: [BMD (g/cm2):0.729] [T-Score:-2.2] [Z-Score: -0.7] [BMD Previous: 0.747] [BMD % Change: -2.4] RT Hip Neck: [BMD (g/cm2):0.660] [T-Score:-2.7] [Z-Score:-1.0] RT Hip Total: [BMD (g/cm2):0.711] [T-score:-2.4] [Z-Score:-0.8] [BMD Previous:0.721] [BMD % Change:-1.4] *Indicates significant change from prior examination based on 95% confidence level. World Health Organization criteria for BMD interpretation classify patients as Normal (T-score at or above -1.0), Osteopenic (T-score between -1.0 and -2.5) or Osteoporotic (T-score at or below -2.5). LIMITATIONS AND MODIFICATION: None. FRACTURE RISK (FRAX SCORE): The ten year probability of (%): Major Osteoporotic Fracture: [29.1] Hip Fracture: [10.5] IMPRESSION: 1. There are mixed results. There has been a slight (5.3%) increase in the bone mineral density of the spine and the T score value is now within normal limits. However, there has been a slight decrease in the bone mineral density of each femoral neck. These T score values still remain within the range of osteoporosis. 2. The bone mineral density of the hips has not changed significantly. The T score value for each hip indicates severe osteopenia. 3. See below National Osteoporosis Foundation guidelines on when to potentially initiate pharmacologic therapy. Based on the National Osteoporosis Foundation Guidelines, pharmacologic treatment should be initiated in any of the following, unless clinical conditions suggest otherwise: * Any patient with prior fragility fracture of the hip or vertebrae. A spine fracture indicates 5X risk for subsequent spine fracture and 2X risk for subsequent hip fracture. * Osteoporosis (T-score <-2.5). * Postmenopausal women and men age 50 and older with low bone mass/osteopenia (T-score between -1.0 and -2.5) by DXA and 10-year major osteoporotic fracture greater than 20% or a 10-year probability of hip fracture greater than 3%. These fracture risks are supplied above in the FRAX score, if applicable. * Clinician judgement and/or patient preferences may indicate treatment for people with 10-year fracture probabilities above or below these levels. Dictated by: Dictated on workstation # [id number]
== END ==
LOC: RAD 12:30
PROVIDERS: ATTEND Family Medicine
DX: Z13.820 Encounter for screening for osteoporosis (principal); Z78.0 Asymptomatic menopausal state; Z85.3 Personal history of malignant neoplasm of breast
CPT/HCPCS: 77080

== ENCOUNTER 2021-11-02 09:32 | Inpatient (IN) | payer MEDICARE, OTHER ==
[~2021-11-02] VITALS: Ht 168 cm; Wt 110.4 kg
[2021-11-02] MEDS ORDERED: NS IV 1000 ML 1,000 ML IV SCH ×3 (09:45→12:00)
--- NOTE | 2021-11-02 10:02 | ED General ---
General Chief Complaint: Trauma-Non Activation Stated Complaint: FALL Nursing Triage Note: pt to rm 6 by cr co ems with cc of a fall at home and pain to posterior head and rt thigh. hx of a-fib, chf, chronic dizziness, rt mastectomy, thyroid problems. pt in a c-collar on arrival. also passing dark red blood Source of Information: Patient (LIMITED HISTORIAN ABOUT PAST MEDICAL HISTORY) History of Present Illness Date Seen by Provider: November 02, 2021 Time Seen by Provider: 09:35 Initial Comments PT ARRIVES VIA EMS FROM HOME--PT LIVES ALONE CERVICAL COLLAR IN PLACE AT 0630 THIS AM, PT WAS USING HER WALKER AND SLIPPED ON A SLICK FLOOR, AND FELL BACKWARDS AND HITTING THE BACK OF HER HEAD ON THE FLOOR DENIES LOSS OF CONSCIOUSNESS UNABLE TO GET UP ON HER OWN. C/O PAIN TO BACK OF HEAD C/O PAIN TO BACK OF NECK C/O PAIN TO ENTIRE RIGHT LEG PT HAS BEEN HAVING CHRONIC DIZZINESS/VERTIGO, BUT HAS BEEN MUCH WORSE FOR THE LAST SEVERAL DAYS ADDITIONALLY, PT HAS BEEN HAVING GROSSLY BLOODY STOOLS FOR THE LAST 3 DAYS PT IS ON COUMADIN FOR CHRONIC ATRIAL FIBRILLATION HR 117 FOR EMS BP 98 SYSTOLIC ON ARRIVAL HERE, WITH HR IN 110-120 ON ARRIVAL HERE NO CHEST PAIN NO SHORTNESS OF BREATH NO SENSATION OF RAPID HEART BEAT DOES HAVE SOME LOWER ABDOMINAL DISCOMFORT NO CHANGE IN VISION NO NAUSEA/VOMITING NO PARESTHESIAS OR MOTOR DEFICITS. PCP: DR. CROWLEY Allergies and Home Medications Allergies Coded Allergies: Sulfa (Sulfonamide Antibiotics) (Verified Allergy, Mild, RASH, 10/26/18) Patient Home Medication List Home Medication List Reviewed: Yes Alendronate Sodium (Alendronate Sodium) 35 Mg Tablet, 35 MG PO MON, (Reported) Entered as Reported by: DYLAN OSBORN on 09/08/19 1306 Last Action: Held Aspirin (Aspirin EC) 81 Mg Tablet.dr, 81 MG PO DAILY, (Reported) Entered as Reported by: EARL CHERRY on 08/26/16 0819 Last Action: Held Atorvastatin Calcium (Atorvastatin Calcium) 20 Mg Tablet, 20 MG PO HS, (Reported) Entered as Reported by: ZAC CABEZAS on 07/03/18 0005 Last Action: Held Cholecalciferol (Vitamin D3) (Vitamin D3) 25 Mcg (1000 Unit) Tablet, 25 MCG PO DAILY, (Reported) Entered as Reported by: WILFREDO HOLT on 11/03/211109 Last Action: Held Diltiazem HCl (Diltiazem ER) 120 Mg Capsule.er, 120 MG PO DAILY, (Reported) Entered as Reported by: WILFREDO HOLT on 11/03/211109 Last Action: Held Furosemide (Furosemide) 40 Mg Tablet, 40 MG PO DAILY, (Reported) Entered as Reported by: WILFREDO HOLT on 11/03/211111 Last Action: Held Levothyroxine Sodium (Levothyroxine Sodium) 50 Mcg Tablet, 50 MCG PO DAILY, (Reported) Entered as Reported by: WILFREDO HOLT on 11/03/211109 Last Action: Continued Magnesium Oxide (Magnesium Oxide) 250 Mg Tablet, 250 MG PO DAILY, (Reported) Entered as Reported by: HAI CABEZAS on 11/09/1859 Last Action: Held Potassium Chloride (Potassium Chloride) 20 Meq Tablet.er, 20 MEQ PO DAILY, (Reported) Entered as Reported by: WILFREDO HOLT on 11/03/211109 Last Action: Held Warfarin Sodium (Warfarin Sodium) 4 Mg Tablet, 4 MG PO GUZMAN,MO,TU,WE,TH,SAT @1800, (Reported) Entered as Reported by: WILFREDO HOLT on 09/08/191509 Last Action: Held Warfarin Sodium (Warfarin Sodium) 4 Mg Tablet, 2 MG PO FRI @1800, (Reported) Entered as Reported by: WILFREDO HOLT on 11/03/211109 Last Action: Held Discontinued Medications Calcium Carbonate/Vitamin D3 (Calcium 500 + Vit D 400 Tablet) 1 Each Tablet, 1 EACH PO DAILY, (Reported) Discontinued Reason: No Longer Taking Entered as Reported by: WILFREDO HOLT on 09/08/191509 Last Action: Discontinued Diltiazem HCl (Diltiazem 24Hr ER) 120 Mg Cap.er.24h, 120 MG PO DAILY Discontinued Reason: No Longer Taking Prescribed by: COLETTE CROWLEY on 09/19/19934 Last Action: Discontinued Doxycycline Hyclate (Doxycycline Hyclate) 100 Mg Tablet, 100 MG PO BID@07,17 Discontinued Reason: No Longer Taking Prescribed by: COLETTE CROWLEY on 09/19/19934 Last Action: Discontinued Ergocalciferol (Vitamin D2) (Vitamin D2) 50 Mcg Capsule, 50 MCG PO DAILY, (Reported) Discontinued Reason: Prescription changed Entered as Reported by: WILFREDO HOLT on 09/08/191509 Furosemide (Furosemide) 40 Mg Tablet, 40 MG PO DAILY, (Reported) Discontinued Reason: No Longer Taking Entered as Reported by: LORNA TEE on 07/04/18 1446 Last Action: Discontinued Levothyroxine Sodium (Levothyroxine Sodium) 88 Mcg Tablet, 88 MCG PO MON,E,,WED,SAT, (Reported) Discontinued Reason: No Longer Taking Entered as Reported by: DYLAN OSBORN on 09/08/19 1306 Last Action: Discontinued Levothyroxine Sodium (Levothyroxine Sodium) 88 Mcg Tablet, 44 MCG PO WED,, (Reported) Discontinued Reason: No Longer Taking Entered as Reported by: WILFREDO HOLT on 09/08/191509 Last Action: Discontinued Potassium Chloride (Klor-Con M20) 20 Meq Tab.er.prt, 20 MEQ PO DAILY, (Reported) Discontinued Reason: No Longer Taking Entered as Reported by: EARL CHERRY on 08/26/16 0819 Last Action: Discontinued Warfarin Sodium (Warfarin Sodium) 5 Mg Tablet, 5 MG PO UD, (Reported) Discontinued Reason: No Longer Taking Entered as Reported by: DYLAN OSBORN on 09/08/19 130 Last Action: Discontinued Review of Systems Review of Systems Constitutional: see HPI, dizziness; No fever EENTM: no symptoms reported Respiratory: no symptoms reported; No short of breath Cardiovascular: see HPI; No chest pain; other (NO CHANGE IN CHRONIC LEG SWELLING) Gastrointestinal: see HPI, abdominal pain, diarrhea, other (GROSSLY BLOODY STOOLS X 3 DAYS) Genitourinary: no symptoms reported Musculoskeletal: see HPI, neck pain, other (ENTIRE RIGHT LEG HURTS) Skin: no symptoms reported Psychiatric/Neurological: See HPI, Headache; Denies Numbness, Denies Paresthesia, Denies Tingling, Denies Weakness Hematologic/Lymphatic: See HPI, Blood Clots, Easy Bleeding, Easy Bruising Immunological/Allergic: no symptoms reported Past Ahejmmc-Vpsyke-Jnpxtj Hx Patient Social History Tobacco Use?: Yes Smoking Status: Former Smoker Substance use?: No Alcohol Use?: No Immunizations Up To Date Tetanus Booster (TDap): Unknown Second COVID19 Vaccination Mati: 12/2020 COVID19 Vaccine 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 [employer]istics: moderna Seasonal Allergies Seasonal Allergies: Yes Past Medical History Surgery/Hospitalization HX: spleenectomy, bi lat knee, rt breast lumpectomy Surgeries: Yes (EGD/COLONOSCOPIES;R LUMPECTOMY;BILATERAL TKR;SPLENECTO MY;CARDIAC CATH-STENT) Adenoidectomy, Appendectomy, Breast, Cardiac, Coronary Stent, Gallbladder, Joint Replacement, Oophorectomy, Orthopedic, Tonsillectomy Respiratory: Yes Sleep Apnea Currently Using CPAP: No Currently Using BIPAP: No Cardiac: Yes (CARDIAC CATHS WITH STENT X 1;PULMONARY HTN; ASVD; MR/TR;CHF) Atrial Fibrillation, Chronic Edema/Swelling, Coronary Artery Disease, Deep Vein Thrombosis, High Cholesterol, Hypertension, Irregular Heartbeat, Peripheral Vascular, Valvular Heart Disease Neurological: Yes (CHRONIC DIZZINESS) Vertigo 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 Sexually Transmitted Disease: No HIV/AIDS: No Genitourinary: Yes Kidney Stones Gastrointestinal: Yes Gastroesophageal Reflux, Diverticulosis, Polyps Musculoskeletal: Yes (OSTEOPENIA; T12 COMPRESSION FX; BILATERAL TKR; FALLS) Osteoporosis, Arthritis, Chronic Back Pain, Fractures Endocrine: Yes (MORBID OBESITY) Hypothyroidsim HEENT: Yes (GLASSES) Loss of Vision: Bilateral Hearing Impairment: Denies Cancer: Yes Skin, Breast Did You Recieve Any Treatments: Yes What Type of Treatment Did You: Radiation, Surgical Intervention RIGHT BREAST CANCER WITH LUMPECTOMY-NO LYMPH NODE REMOVAL HAS ALSO HAD RADIATION Psychosocial: No Integumentary: Yes (REMOVAL OF SKIN LESIONS) Blood Disorders: No Adverse Reaction/Blood Tranf: No (N/A) Family Medical History Hypertension PSH: -MULTIPLE CARDIAC CATHS--STENT X 1 TO LAD IN 2015-LAST CATH 10/2018--PATENT STENT WITH MILD TO MODERATE DISEASE, NO INTERVENTION AT THAT TIME. EF 60% -EGD'S/COLONOSCOPIES -RIGHT BREAST LUMPECTOMY FOR CANCER -SPLENECTOMY -CHOLECYSTECTOMY -APPENDECTOMY -CYSTOSCOPY WITH URETHRAL DILATION -KIDNEY STONE REMOVAL -TONSILLECTOMY/ADENOIDECTOMY -BILATERAL TOTAL KNEE REPLACEMENTS Physical Exam Vital Signs Vital Signs - First Documented Capillary Refill : Less Than 3 Seconds Height, Weight, BMI Height: 5'7.00" Weight: 209lbs. 0.0oz. [id number]; 36.00 BMI Method:Stated General Appearance: No Apparent Distress, WD/WN, Obese HEENT: PERRL/EOMI, TMs Normal, Normal ENT Inspection, Pharynx Normal, Other (TENDERNESS TO BACK OF HEAD) Neck: Other (IN CERVICAL COLLAR ON ARRIVAL) Respiratory: Normal Breath Sounds, No Accessory Muscle Use, No Respiratory Distress Cardiovascular: Irregularly Irregular, Tachycardia Gastrointestinal: Normal Bowel Sounds, Soft, Tenderness (DIFFUSE LOWER ABDOMINAL TENDERNESS), Other (OBESE) Back: Normal Inspection, No CVA Tenderness, No Vertebral Tenderness Extremity: Normal Capillary Refill, Pedal Edema (TRACE BILATERALLY), Other (D IFFUSE RIGHT LEG TENDERNESS. NO DEFORMITY. DISTAL MOTOR/SENSORY/VASCULAR INTACT) Neurologic/Psychiatric: Alert, Oriented x3, No Motor/Sensory Deficits, Normal Mood/Affect, assembler unit II-XII Norm as Tested Skin: Normal Color, Warm/Dry Focused Exam Sepsis Stage: Sepsis Possible Source: Genitouriary Lactate Level 11/02/21 11:05: Lactic Acid Level 2.19*H Time of Focused Exam: 11:00 Respiratory: Normal Breath Sounds, No Accessory Muscle Use, No Respiratory Distress Cardiovascular: Regular Rate, Rhythm, No Murmur Capillary Refill: Less Than 3 Seconds Skin: normal color, warm/dry Lactic Acid Level Laboratory Tests Test 11/02/21 11:05 Lactic Acid Level 2.19 MMOL/L (0.50-2.00) *H Within 3hrs of presentation: Admin fluids, Admin ABX, Blood cultures prior to ABX's, Focus exam, Lactate level Procedures/Interventions Suture Size: 4-0 Progress/Results/Core Measures Suspected Sepsis SIRS Temperature: Pulse: 112 Respiratory Rate: 20 Blood Pressure 98 /52 Mean: 67 11/02/21 11:05: Lactic Acid Level 2.19*H Laboratory Tests 11/02/21 09:50: INR Comment 3.6H, Total Bilirubin 0.7 Results/Orders Lab Results Laboratory Tests Test 11/02/21 09:50 11/02/21 10:04 11/02/21 11:05 Range/Units White Blood Count 18.9 H 4.3-11.0 10^3/uL Red Blood Count 2.99 L 3.80-5.11 10^6/uL Hemoglobin 8.8 L 11.5-16.0 g/dL Hematocrit 27 L 35-52 % Mean Corpuscular Volume 92 80-99 fL Mean Corpuscular Hemoglobin 29 25-34 pg Mean Corpuscular Hemoglobin Concent 32 32-36 g/dL Red Cell Distribution Width 17.4 H 10.0-14.5 % Platelet Count 298 130-400 10^3/uL Mean Platelet Volume 10.5 9.0-12.2 fL Immature Granulocyte % (Auto) 2 % Neutrophils (%) (Auto) 78 H 42-75 % Lymphocytes (%) (Auto) 13 12-44 % Monocytes (%) (Auto) 7 0-12 % Eosinophils (%) (Auto) 0 0-10 % Basophils (%) (Auto) 0 0-10 % Neutrophils # (Auto) 14.8 H 1.8-7.8 10^3/uL Lymphocytes # (Auto) 2.4 1.0-4.0 10^3/uL Monocytes # (Auto) 1.2 H 0.0-1.0 10^3/uL Eosinophils # (Auto) 0.0 0.0-0.3 10^3/uL Basophils # (Auto) 0.1 0.0-0.1 10^3/uL Immature Granulocyte # (Auto) 0.4 H 0.0-0.1 10^3/uL Neutrophils % (Manual) 86 % Lymphocytes % (Manual) 12 % Monocytes % (Manual) 2 % Nucleated Red Blood Cells 1 Huma Cells MODERATE Elliptocytes SLIGHT Acanthocytes SLIGHT Prothrombin Time 36.4 H 12.2-14.7 SEC INR Comment 3.6 H 0.8-1.4 Activated Partial Thromboplast Time 43 H 24-35 SEC Sodium Level 139 135-145 MMOL/L Potassium Level 3.8 3.6-5.0 MMOL/L Chloride Level 105 98-107 MMOL/L Carbon Dioxide Level 22 21-32 MMOL/L Anion Gap 12 5-14 MMOL/L Blood Urea Nitrogen 33 H 7-18 MG/DL Creatinine 1.32 H 0.60-1.30 MG/DL Estimat Glomerular Filtration Rate 40 BUN/Creatinine Ratio 25 Glucose Level 110 H 70-105 MG/DL Calcium Level 8.3 L 8.5-10.1 MG/DL Corrected Calcium 9.4 8.5-10.1 MG/DL Magnesium Level 2.3 1.6-2.4 MG/DL Total Bilirubin 0.7 0.1-1.0 MG/DL Aspartate Amino Transf (AST/SGOT) 17 5-34 U/L Alanine Aminotransferase (ALT/SGPT) 18 0-55 U/L Alkaline Phosphatase 58 40-136 U/L Total Protein 5.1 L 6.4-8.2 GM/DL Albumin 2.6 L 3.2-4.5 GM/DL Procalcitonin 0.07 <0.10 NG/ML Urine Color YELLOW Urine Clarity SL CLOUDY Urine pH 5.5 5-9 Urine Specific [place] 1.010 L 1.016-1.022 Urine Protein NEGATIVE NEGATIVE Urine Glucose (UA) NEGATIVE NEGATIVE Urine Ketones NEGATIVE NEGATIVE Urine Nitrite NEGATIVE NEGATIVE Urine Bilirubin NEGATIVE NEGATIVE Urine Urobilinogen 0.2 < = 1.0 MG/DL Urine Leukocyte Esterase 2+ H NEGATIVE Urine RBC (Auto) NEGATIVE NEGATIVE Urine RBC RARE /HPF Urine WBC 50-100 H /HPF Urine Squamous Epithelial Cells RARE /HPF Urine Crystals NONE /LPF Urine Bacteria LARGE H /HPF Urine Casts PRESENT /LPF Urine Hyaline Casts RARE /LPF Urine Mucus SMALL H /LPF Urine Culture Indicated YES Lactic Acid Level 2.19 *H 0.50-2.00 MMOL/L Micro Results Microbiology 11/02/21 Blood Culture - Preliminary, Resulted No growth 11/02/21 Urine Culture - Final, Complete Klebsiella pneumoniae My Orders Orders - GÓMEZ ZENG DO Ed Iv/Invasive Line Start (11/02/21 09:38) Ekg Tracing (11/02/21 09:38) Catheter(Urinary) Insert & Ass 03,15 (11/02/21 09:38) Monitor-Rhythm Ecg Trace Only (11/02/21 09:38) Ct Head/Cervical Spine Wo (11/02/21 09:38) Ct Thoracic/Lumbar Spine Wo (11/02/21 09:38) Chest 1 View, Ap/Pa Only (11/02/21 09:38) Femur, Right, 2 Views (11/02/21 09:38) Tibia/Fibula, Right, 2 Views (11/02/21 09:38) Pelvis With Right Hip 2-3views (11/02/21 09:38) Cbc With Automated Diff (11/02/21 09:38) Comprehensive Metabolic Panel (11/02/21 09:38) Magnesium (11/02/21 09:38) Protime With Inr (11/02/21 09:38) Partial Thromboplastin Time (11/02/21 09:38) Ua Culture If Indicated (11/02/21 09:38) Ct Chest/Abdomen/Pelvis Wo (11/02/21 09:38) Ed Iv/Invasive Line Start (11/02/21 09:43) Ns Iv 1000 Ml (Sodium Chloride 0.9%) (11/02/21 09:45) Type And Screen (11/02/21 09:55) Manual Differential (11/02/21 09:50) Procalcitonin (Pct) (11/02/21 10:47) Urine Culture (11/02/21 10:04) Blood Culture (11/02/21 11:20) Ed Iv/Invasive Line Start (11/02/21 11:20) Vital Signs Adult Sepsis Patie Q15M (11/02/21 11:20) Remove Rings In Anticipation O (11/02/21 11:20) Lactic Acid Analyzer (11/02/21 11:20) Ns Iv 1000 Ml (Sodium Chloride 0.9%) (11/02/21 11:30) Ed Iv/Invasive Line Start (11/02/21 11:29) Ceftriaxone 1 Gm Pre-Mix (Rocephin 1 Gm (11/02/21 11:30) Metronidazole 500mg/100ml Ivpb (Flagyl 5 (11/02/21 11:30) Vital Signs/I&O 11/02/21 11/02/21 09:38 09:38 Temp 36.5 36.5 Pulse 112 112 Resp 20 20 B/P (MAP) 98/52 (67) 98/52 (67) Pulse Ox 97 97 O2 Delivery Room Air Room Air Capillary Refill : Less Than 3 Seconds Blood Pressure Mean: 67 Progress Note : Progress Note SEPSIS PROTOCOL INITIATED ON RECEIVING CBC RESULTS, SHOWING LEUKOCYTOSIS. GIVEN IV FLUIDS AND ANTIBIOTICS NO STOOLS DURING ER STAY. NO DETERIORATION IN PT'S CONDITION DURING ER STAY ECG Initial ECG Impression Date: November 02, 2021 Initial ECG Impression Time: 10:01 Initial ECG Rate: 102 Initial ECG Rhythm: A Fib/Flutter Initial ECG Impression: Nonspecific Changes Diagnostic Imaging Comments CT SCANS--PER RADIOLOGIST REPORTS AT 1115 CT HEAD/CERVICAL SPINE-- FINDINGS: HEAD: Mild diffuse cerebral volume loss with proportional enlargement of the ventricles and sulci. Mild hypodensities throughout the supratentorial white matter of both cerebral hemispheres. No acute intracranial hemorrhage or abnormal extra-axial fluid collections are present. Calcification of the intracranial ICAs. No hyperdense vessel. The calvarium is intact. The mastoid air cells are clear. The visualized paranasal sinuses are clear. Surgical changes of the orbits. C-SPINE: Vertebral body height and alignment are preserved. There is congenital nonunion of the posterior arch of C1. No acute fracture, dislocation, or destructive osseous process. Multilevel facet hypertrophy without perched facets. There is multilevel cervical spondylosis. The paraspinous soft tissues are normal. The visualized thyroid gland is normal. The visualized lung apices are normal. IMPRESSION: 1. No acute intracranial abnormality. Mild chronic micro-angiopathy and volume loss. 2. Degenerative changes of the cervical spine without acute osseous abnormality. CT THORACIC/LUMBAR SPINE-- COMPARISON: 11/02/2021 FINDINGS: The alignment of the thoracic and lumbar spine is normal. There is mild compression deformity of the T3 vertebral body with 10% loss of height. Mild compression deformity of the T7 vertebral body with 30% loss of height. Mild compression deformity of the T8 vertebral body with 20% loss of height. There is significant compression deformity of the T12 vertebral body with 80% loss of height. There is multilevel facet hypertrophy. Disk heights are normal. Mild thoracolumbar spondylosis. Limited views of the soft tissues show no abnormality. There are vascular opacification is of the aorta without aneurysm. IMPRESSION: 1. Age indeterminate compression deformities of the T3, T7, and T8 vertebral bodies. T12 vertebral body fracture has progressed from 09/08/2019. CT CHEST/ABDOMEN/PELVIS-- COMPARISON: 09/08/2019 FINDINGS: Thyroid: The thyroid is normal. Mediastinum: Heart size is normal without significant pericardial effusion. Calcifications of the aorta and coronary vessels. Thoracic aorta is normal in caliber. No suspicious lymphadenopathy. Lungs and airways: The lungs are clear without consolidation, pleural effusion, or pneumothorax. There is atelectasis within the dependent lungs. There is a 0.5 cm left lower lobe pulmonary nodule. Solid organs: The liver is normal. The gallbladder is surgically absent. There is no biliary ductal dilation. Pancreas is normal. The spleen is nonvisualized and may be surgically absent. Stable left adrenal nodule measuring up to 2.1 cm. There are bilateral calculi measuring up to 0.3 cm. No hydronephrosis. Bowel: The stomach and small bowel are normal without obstruction. There is scattered colonic diverticulosis. The appendix is normal. Peritoneum: Trace fluid and stranding within the left paracolic gutter. No loculated fluid collection or free air. No suspicious lymphadenopathy. Vasculature: Calcification of the aorta without aneurysm. Musculoskeletal: Spinal findings are discussed in more detail on same-day CT of the thoracic and lumbar spine. No other acute fracture is seen. Pelvis: The uterus and adnexa are normal. Mild bladder wall thickening. Potts catheter is present. IMPRESSION: 1. No acute abnormality in the chest, abdomen, or pelvis. 2. Discussion of thoracic compression fractures in more detail on same-day CT of the thoracic and lumbar spine. 3. Mild bladder wall thickening. 4. Colonic diverticulosis. 5. Mild fluid within the left paracolic gutter is nonspecific but could be seen with an infectious or inflammatory process or less likely diverticulitis in the appropriate clinical setting. 6. A 0.5 cm left lower lobe pulmonary nodule. Consider followup CT chest in 6-12 months. XRAYS--PER RADIOLOGIST REPORTS AT 1121 CXR-- FINDINGS: Heart size and pulmonary vasculature are normal. The lungs are clear without consolidation, pleural effusion, or pneumothorax. The osseous structures are intact. IMPRESSION: 1. No acute radiographic abnormality in the chest. PELVIS/RIGHT HIP-- FINDINGS: There is no acute fracture, dislocation, or destructive osseous process. The joint spaces are normal. The soft tissues are normal. IMPRESSION: 1. No acute osseous abnormality of the pelvis or right hip. RIGHT FEMUR-- FINDINGS: There is no acute fracture, dislocation, or destructive osseous process. Surgical changes from right knee arthroplasty. The joint spaces are normal. The soft tissues are normal. IMPRESSION: 1. No acute osseous abnormality of the right femur. RIGHT TIB-FIB-- FINDINGS: There is no acute fracture, dislocation, or destructive osseous process. The joint spaces are normal. The soft tissues are normal. Surgical changes from right knee arthroplasty. IMPRESSION: 1. No acute osseous abnormality. Reviewed: Reviewed by Ok Departure Communication (Admissions) [id number]--CALLED DR. ANDERSON, MESSAGE LEFT ON CELL [id number]--SPOKE WITH DR. ANDERSON, ACCEPTS PT FOR ADMIT. SHE WILL CONTACT DR. TRUJILLO Impression Primary Impression: Sepsis Additional Impressions: UTI (urinary tract infection) Lower GI bleed Anemia Renal insufficiency Fall from standing COUMADIN THERAPY Paroxysmal A-fib Right leg pain Disposition: ADMITTED INPATIENT Condition: Stable Admissions Decision to Admit Reason: Admit from ER (General) Decision to Admit/Date: November 02, 2021 Time/Decision to Admit Time: 11:35 Departure-Patient Inst. Referrals: COLETTE CROWLEY MD (PCP/Family) Primary Care Physician GÓMEZ ZENG DO November 02, 2021 10:02
[2021-11-02 10:10] LABS: BASOPHILS # (AUTO) 0.1 10^3/uL (0.0-0.1); BASOPHILS % (AUTO) 0 % (0-10); EOSINOPHILS % (AUTO) 0 % (0-10); HEMATOCRIT 27 % (35-52); HEMOGLOBIN 8.8 g/dL (11.5-16.0); LYMPHOCYTES # (AUTO) 2.4 10^3/uL (1.0-4.0); LYMPHOCYTES % (AUTO) 13 % (12-44); MEAN CORPUSCULAR HEMOGLOBIN 29 pg (25-34); MEAN CORPUSCULAR HGB CONC 32 g/dL (32-36); MEAN CORPUSCULAR VOLUME 92 fL (80-99); MEAN PLATELET VOLUME 10.5 fL (9.0-12.2); MONOCYTES # (AUTO) 1.2 10^3/uL (0.0-1.0); MONOCYTES % (AUTO) 7 % (0-12); NEUTROPHILS # (AUTO) 14.8 10^3/uL (1.8-7.8); NEUTROPHILS % (AUTO) 78 % (42-75); PLATELET COUNT 298 10^3/uL (130-400); WHITE BLOOD COUNT 18.9 10^3/uL (4.3-11.0)
[2021-11-02 10:16] LABS: BILIRUBIN,URINE NEGATIVE (NEGATIVE); CLARITY,URINE SL CLOUDY; COLOR,URINE YELLOW; GLUCOSE, URINE (UA) NEGATIVE (NEGATIVE); KETONES,URINE NEGATIVE (NEGATIVE); LEUKOCYTE ESTERASE ,URINE 2+ (NEGATIVE); NITRITE,URINE NEGATIVE (NEGATIVE); PH,URINE 5.5 (5-9); PROTEIN,URINE NEGATIVE (NEGATIVE)
[2021-11-02 10:26] LABS: ALBUMIN 2.6 GM/DL (3.2-4.5); INR 3.6 (0.8-1.4); POTASSIUM 3.8 MMOL/L (3.6-5.0); PROTHROMBIN TIME PATIENT 36.4 SEC (12.2-14.7)
[2021-11-02 10:27] LABS: CALCIUM 8.3 MG/DL (8.5-10.1)
[2021-11-02 10:28] LABS: TOTAL PROTEIN 5.1 GM/DL (6.4-8.2)
[2021-11-02 10:30] LABS: BILIRUBIN,TOTAL 0.7 MG/DL (0.1-1.0)
[2021-11-02 10:32] LABS: CREATININE SERUM 1.32 MG/DL (0.60-1.30)
[2021-11-02 10:35] LABS: MAGNESIUM 2.3 MG/DL (1.6-2.4)
[2021-11-02 10:53] LABS: BACTERIA,URINE LARGE /HPF; HYALINE CASTS, URINE RARE /LPF; RBC,URINE RARE /HPF; SQUAMOUS EPITHELIAL CELL,UR RARE /HPF; WBC,URINE 50-100 /HPF
[2021-11-02 11:03] LABS: LYMPHOCYTES % (MANUAL) 12 %; MONOCYTES % (MANUAL) 2 %; NEUTROPHILS % (MANUAL) 86 %
[2021-11-02 11:04] LABS: ACANTHOCYTES SLIGHT; BURR CELLS MODERATE; ELLIPT/OVALOCYTES SLIGHT; NUCLEATED RED BLOOD CELLS 1
--- NOTE | 2021-11-02 11:04 | Diagnostic Imaging Report ---
EXAMINATION: CT head and CT cervical spine without contrast. TECHNIQUE: Multiple contiguous axial images were obtained through the brain and cervical spine without the use of intravenous contrast. Sagittal and coronal reformations through the cervical spine were then performed. All CT scans use one or more of the following dose optimizing techniques: automated exposure control, MA and/or KvP adjustment based on patient size and exam type or iterative reconstruction. HISTORY: Head and neck pain after injury COMPARISON: 02/26/2015 FINDINGS: HEAD: Mild diffuse cerebral volume loss with proportional enlargement of the ventricles and sulci. Mild hypodensities throughout the supratentorial white matter of both cerebral hemispheres. No acute intracranial hemorrhage or abnormal extra-axial fluid collections are present. Calcification of the intracranial ICAs. No hyperdense vessel. The calvarium is intact. The mastoid air cells are clear. The visualized paranasal sinuses are clear. Surgical changes of the orbits. C-SPINE: Vertebral body height and alignment are preserved. There is congenital nonunion of the posterior arch of C1. No acute fracture, dislocation, or destructive osseous process. Multilevel facet hypertrophy without perched facets. There is multilevel cervical spondylosis. The paraspinous soft tissues are normal. The visualized thyroid gland is normal. The visualized lung apices are normal. IMPRESSION: 1. No acute intracranial abnormality. Mild chronic micro-angiopathy and volume loss. 2. Degenerative changes of the cervical spine without acute osseous abnormality. Dictated by: Dictated on workstation # [id number]
--- NOTE | 2021-11-02 11:12 | Diagnostic Imaging Report ---
EXAMINATION: CT thoracic and lumbar spine without contrast. TECHNIQUE: Multiple contiguous axial images were obtained through the thoracic and lumbar spine without the use of intravenous contrast. Sagittal and coronal reformations were then performed. All CT scans use one or more of the following dose optimizing techniques: automated exposure control, MA and/or KvP adjustment based on patient size and exam type or iterative reconstruction. HISTORY: Back pain after injury COMPARISON: 11/02/2021 FINDINGS: The alignment of the thoracic and lumbar spine is normal. There is mild compression deformity of the T3 vertebral body with 10% loss of height. Mild compression deformity of the T7 vertebral body with 30% loss of height. Mild compression deformity of the T8 vertebral body with 20% loss of height. There is significant compression deformity of the T12 vertebral body with 80% loss of height. There is multilevel facet hypertrophy. Disk heights are normal. Mild thoracolumbar spondylosis. Limited views of the soft tissues show no abnormality. There are vascular opacification is of the aorta without aneurysm. IMPRESSION: 1. Age indeterminate compression deformities of the T3, T7, and T8 vertebral bodies. T12 vertebral body fracture has progressed from 09/08/2019. Dictated by: Dictated on workstation # [id number]
--- NOTE | 2021-11-02 11:14 | Diagnostic Imaging Report ---
EXAMINATION: CT chest, abdomen and pelvis without intravenous contrast. TECHNIQUE: Multiple contiguous axial images were obtained through the chest, abdomen and pelvis without intravenous contrast. All CT scans use one or more of the following dose optimizing techniques: automated exposure control, MA and/or KvP adjustment based on patient size and exam type or iterative reconstruction. HISTORY: Chest and abdominal pain after injury. COMPARISON: 09/08/2019 FINDINGS: Thyroid: The thyroid is normal. Mediastinum: Heart size is normal without significant pericardial effusion. Calcifications of the aorta and coronary vessels. Thoracic aorta is normal in caliber. No suspicious lymphadenopathy. Lungs and airways: The lungs are clear without consolidation, pleural effusion, or pneumothorax. There is atelectasis within the dependent lungs. There is a 0.5 cm left lower lobe pulmonary nodule. Solid organs: The liver is normal. The gallbladder is surgically absent. There is no biliary ductal dilation. Pancreas is normal. The spleen is nonvisualized and may be surgically absent. Stable left adrenal nodule measuring up to 2.1 cm. There are bilateral calculi measuring up to 0.3 cm. No hydronephrosis. Bowel: The stomach and small bowel are normal without obstruction. There is scattered colonic diverticulosis. The appendix is normal. Peritoneum: Trace fluid and stranding within the left paracolic gutter. No loculated fluid collection or free air. No suspicious lymphadenopathy. Vasculature: Calcification of the aorta without aneurysm. Musculoskeletal: Spinal findings are discussed in more detail on same-day CT of the thoracic and lumbar spine. No other acute fracture is seen. Pelvis: The uterus and adnexa are normal. Mild bladder wall thickening. Potts catheter is present. IMPRESSION: 1. No acute abnormality in the chest, abdomen, or pelvis. 2. Discussion of thoracic compression fractures in more detail on same-day CT of the thoracic and lumbar spine. 3. Mild bladder wall thickening. 4. Colonic diverticulosis. 5. Mild fluid within the left paracolic gutter is nonspecific but could be seen with an infectious or inflammatory process or less likely diverticulitis in the appropriate clinical setting. 6. A 0.5 cm left lower lobe pulmonary nodule. Consider followup CT chest in 6-12 months. Dictated by: Dictated on workstation # [id number]
--- NOTE | 2021-11-02 11:16 | Diagnostic Imaging Report ---
EXAMINATION: Chest 1 view HISTORY: Chest pain after fall COMPARISON: 09/09/2019 FINDINGS: Heart size and pulmonary vasculature are normal. The lungs are clear without consolidation, pleural effusion, or pneumothorax. The osseous structures are intact. IMPRESSION: 1. No acute radiographic abnormality in the chest. Dictated by: Dictated on workstation # [id number]
--- NOTE | 2021-11-02 11:16 | Diagnostic Imaging Report ---
EXAMINATION: Right femur radiograph EXAM DATE: 11/02/2021 COMPARISON: None available. HISTORY: leg pain TECHNIQUE: 4 views of the right femur FINDINGS: There is no acute fracture, dislocation, or destructive osseous process. Surgical changes from right knee arthroplasty. The joint spaces are normal. The soft tissues are normal. IMPRESSION: 1. No acute osseous abnormality of the right femur. Dictated by: Dictated on workstation # [id number]
--- NOTE | 2021-11-02 11:18 | Diagnostic Imaging Report ---
EXAMINATION: Pelvis and right hip radiograph EXAM DATE: 11/02/2021 COMPARISON: None available. HISTORY: Right hip pain after fall TECHNIQUE: 3 views of the pelvis and right hip FINDINGS: There is no acute fracture, dislocation, or destructive osseous process. The joint spaces are normal. The soft tissues are normal. IMPRESSION: 1. No acute osseous abnormality of the pelvis or right hip. Dictated by: Dictated on workstation # [id number]
--- NOTE | 2021-11-02 11:18 | Diagnostic Imaging Report ---
EXAMINATION: Right tibia and fibula radiograph EXAM DATE: 11/02/2021 COMPARISON: None available. HISTORY: leg pain TECHNIQUE: 3 views of the right tibia and fibula FINDINGS: There is no acute fracture, dislocation, or destructive osseous process. The joint spaces are normal. The soft tissues are normal. Surgical changes from right knee arthroplasty. IMPRESSION: 1. No acute osseous abnormality. Dictated by: Dictated on workstation # [id number]
[2021-11-02] MEDS ORDERED: metroNIDAZOLE 500MG/100ML IVPB 100 ML IV ONE (11:30)
[2021-11-02] MEDS ORDERED: cefTRIAXone 1 GM PRE-MIX 50 ML IV ONE (11:30)
[2021-11-02] MEDS ORDERED: fentaNYL INJ 100 MCG/2 ML AMP IVP STA (12:21)
--- NOTE | 2021-11-02 13:23 | Tele-ICU Progress Note ---
Subjective Date Seen by a Provider: November 02, 2021 Time Seen by a Provider: 12:53 Subjective/Events-last exam This virtual visit was conducted using real time audio/video. Thank you for asking us to see this patient for respiratory insufficiency due to COPD. Recent events: Admitted w LGIB, UTI, sepsis. Fell on slippery floor at home. PMH: COPD, RIVER, CAD/stented MR/TR Pulm Htn. HL HTN PAD afib/coumadin R breast lumpectomy GERD hypothyroid. SH: smoking history: former. FH: Non-contributory ROS:as in HPI. PE: VSS. O2 sat 97% on RA HEENT: No obvious masses, adenopathy or JVD. Chest: clear to auscultation. CV: Irreg. S1 S2 No murmur or added sounds. Abd: Non-tender. Bowel sounds Y. : Unremarkable. 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 No obvious focal findings. Extremities: No edema. Capillary refill < 3 seconds. Skin: unremarkable. Results: Elevated WCC 18.9, BUN 33, Creat 1.32, INR 3.6, Lact. 2.19. Decreased Hb 8.8, Alb 2.6. CXR: Hyperinflated with clear lake.. Available chart/ vitals / labs / images reviewed. Video assessment done using teleICU camera, rest of exam as per RN. A/P: Respiratory insufficiency: currently stable on roomm air. Will add Duonebs PRN in view of COPD history. Monitor for increasing oxygenation needs. Critical Care: critically ill patient. Cont. IVF, ABX. Hold coumadin. Discussed with RN OBDULIA. Asked RN to reach out to eICU if any questions or concerns later. Time spent with patient/coordination of care with other health professionals (mins):32 Sepsis Event Evaluation Height, Weight, BMI Height: 5'7.00" Weight: 209lbs. 0.0oz. [id number]; 36.00 BMI Method:Stated Focused Exam Lactate Level 11/02/21 11:05: Lactic Acid Level 2.19*H Lactic Acid Level Laboratory Tests Test 11/02/21 11:05 Lactic Acid Level 2.19 MMOL/L (0.50-2.00) *H Exam Exam Patient acknowledged, consented, and participated in this virtual visit which was conducted using real time audio/video Vital Signs Date Time Temp Pulse Resp B/P (MAP) Pulse Ox O2 Delivery O2 Flow Rate FiO2 11/02/21 09:38 36.5 112 20 98/52 (67) 97 Room Air Height & Weight Height: 5'7.00" Weight: 209lbs. 0.0oz. 94.641317qb; 36.00 BMI Method:Stated General Appearance: No Apparent Distress, WD/WN, Obese HEENT: PERRL/EOMI, TMs Normal, Normal ENT Inspection, Pharynx Normal Neck: Other Respiratory: Normal Breath Sounds, No Accessory Muscle Use, No Respiratory Distress Cardiovascular: Irregularly Irregular, Tachycardia Capillary Refill: Less Than 3 Seconds Extremity: Other Results Lab Laboratory Tests 11/02/21 09:50 Assessment/Plan Assessment/Plan See free text. Critical Care: Critically Ill Patient MOLINA ALVARENGA MD November 02, 2021 13:23
[2021-11-02] MEDS ORDERED: RT-ALBUTEROL/IPRATROPIUM 3 ML (DUONEB) VIAL INH PRN (13:30)
[2021-11-02] MEDS ORDERED: fentaNYL INJ 100 MCG/2 ML AMP IV PRN (14:00)
[2021-11-02] MEDS ORDERED: ACETAMINOPHEN 500 MG TAB (TYLENOL) PO PRN (14:00)
[2021-11-02] MEDS: NS IV 1000 ML 1,000 ML IV SCH ×3 (14:56→22:29)
--- NOTE | 2021-11-02 15:34 | Consultation - Surgery ---
History of Present Illness History of Present Illness Patient Consulted On(natalie/time) 11/02/21 15:26 Time Seen by Provider: 12:37 History of Present Illness Surgery asked to consult regarding Hematochezia and Anemia. HPI per ED: PT ARRIVES VIA EMS FROM HOME--PT LIVES ALONE, CERVICAL COLLAR IN PLACE. AT 0630 THIS AM, PT WAS USING HER WALKER AND SLIPPED ON A SLICK FLOOR, AND FELL BACKWARDS AND HITTING THE BACK OF HER HEAD ON THE FLOOR DENIES LOSS OF CONSCIOUSNESS, UNABLE TO GET UP ON HER OWN. C/O PAIN TO BACK OF HEAD, C/O PAIN TO BACK OF NECK, C/O PAIN TO ENTIRE RIGHT LEG. PT HAS BEEN HAVING CHRONIC DIZZINESS/VERTIGO, BUT HAS BEEN MUCH WORSE FOR THE LAST SEVERAL DAYS. ADDITIONALLY, PT HAS BEEN HAVING GROSSLY BLOODY STOOLS FOR THE LAST 3 DAYS, PT IS ON COUMADIN FOR CHRONIC ATRIAL FIBRILLATION, HR 117 FOR EMS, BP 98 SYSTOLIC ON ARRIVAL HERE, WITH HR IN 110-120 ON ARRIVAL HERE, NO CHEST PAIN, NO SHORTNESS OF BREATH, NO SENSATION OF RAPID HEART BEAT, DOES HAVE SOME LOWER ABDOMINAL DISCOMFORT, NO CHANGE IN VISION, NO NAUSEA/VOMITING, NO PARESTHESIAS OR MOTOR DEFICITS. When I saw the pt in the ER she appeared stable in no acute distress. She stated that she has had some bleeding in the past few weeks, but nothing before then. She has never had an EGD, but states she had a Colonoscopy "a few years ago" and they found diverticulosis. In fact, she is scheduled to have another colonoscopy on 11/[address] Hernandez. She states she really is only having minimal abdominal discomfort. Allergies and Home Medications Allergies Coded Allergies: Sulfa (Sulfonamide Antibiotics) (Verified Allergy, Mild, RASH, 10/26/18) Patient Home Medication List Home Medication List Reviewed: Yes Alendronate Sodium (Alendronate Sodium) 35 Mg Tablet, 35 MG PO WEDNESDAY, (Reported) Entered as Reported by: DYLAN OSBORN on 09/08/19 1306 Aspirin (Aspirin EC) 81 Mg Tablet.dr, 81 MG PO DAILY, (Reported) Entered as Reported by: EARL CHERRY on 08/26/16 0819 Atorvastatin Calcium (Atorvastatin Calcium) 20 Mg Tablet, 20 MG PO HS, (Reported) Entered as Reported by: ZAC CABEZAS on 07/03/18 0005 Calcium Carbonate/Vitamin D3 (Calcium 500 + Vit D 400 Tablet) 1 Each Tablet, 1 EACH PO DAILY, (Reported) Entered as Reported by: WILFREDO HOLT on 09/08/19 151 Diltiazem HCl (Diltiazem 24Hr ER) 120 Mg Cap.er.24h, 120 MG PO DAILY Prescribed by: COLETTE CROWLEY on 09/19/19 0935 Doxycycline Hyclate (Doxycycline Hyclate) 100 Mg Tablet, 100 MG PO BID@ Prescribed by: COLETTE CROWLEY on 09/19/19 0935 Ergocalciferol (Vitamin D2) (Vitamin D2) 50 Mcg Capsule, 50 MCG PO DAILY, (Reported) Entered as Reported by: WILFREDO HOLT on 09/08/19 151 Furosemide (Furosemide) 40 Mg Tablet, 40 MG PO DAILY, (Reported) Entered as Reported by: LORNA TEE on 07/04/18 1446 Levothyroxine Sodium (Levothyroxine Sodium) 88 Mcg Tablet, 88 MCG PO WED,WED,,WED,SAT, (Reported) Entered as Reported by: DYLAN OSBORN on 09/08/19 1306 Levothyroxine Sodium (Levothyroxine Sodium) 88 Mcg Tablet, 44 MCG PO WED,JUAN, (Reported) Entered as Reported by: WILFREDO HOLT on 09/08/19 151 Magnesium Oxide (Magnesium Oxide) 250 Mg Tablet, 250 MG PO DAILY, (Reported) Entered as Reported by: HAI CABEZAS on 11/09/18 0959 Potassium Chloride (Klor-Con M20) 20 Meq Tab.er.prt, 20 MEQ PO DAILY, (Reported) Entered as Reported by: EARL CHERRY on 08/26/16 0819 Warfarin Sodium (Warfarin Sodium) 5 Mg Tablet, 5 MG PO UD, (Reported) Entered as Reported by: DYLAN OSBORN on 09/08/19 1306 Warfarin Sodium (Warfarin Sodium) 4 Mg Tablet, 4 MG PO WED,WED,, (Reported) Entered as Reported by: WILFREDO HOLT on 09/08/19 1510 Past Caaxpzh-Txehjn-Rsmorx Hx Patient Social History Smoking Status: Former Smoker Former Smoker, Quit: Aug 26, 1954 Type Used: Cigarettes 2nd Hand Smoke Exposure: Yes Recent Hopitalizations: No Alcohol Use?: No Have you traveled recently?: No Immunizations Up To Date Tetanus Booster (TDap): Unknown Date of Pneumonia Vaccine: Apr 06, 2018 Date of Influenza Vaccine: Apr 06, 2019 Seasonal Allergies Seasonal Allergies: Yes Surgeries History of Surgeries: Yes (EGD/COLONOSCOPIES;R LUMPECTOMY;BILATERAL TKR;SPLENECTOMY;CARDIAC CATH-STENT) Surgeries: Adenoidectomy, Appendectomy, Breast, Cardiac, Coronary Stent, Gallbladder, Joint Replacement, Oophorectomy, Orthopedic, Tonsillectomy Respiratory History of Respiratory Disorde: Yes Respiratory Disorders: Sleep Apnea Cardiovascular History of Cardiac Disorders: Yes (CARDIAC CATHS WITH STENT X 1;PULMONARY HTN; ASVD; MR/TR;CHF) Cardiac Disorders: Atrial Fibrillation, Chronic Edema/Swelling, Coronary Artery Disease, Deep Vein Thrombosis, High Cholesterol, Hypertension, Irregular Heartbeat, Peripheral Vascular, Valvular Heart Disease Neurological History of Neurological Disord: Yes (CHRONIC DIZZINESS) Neurological Disorders: Vertigo Reproductive System Hx Reproductive Disorders: Yes Sexually Transmitted Disease: No HIV/AIDS: 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 Genitourinary History of Genitourinary Disor: Yes Genitourinary Disorders: Kidney Stones Gastrointestinal History of Gastrointestinal Di: Yes Gastrointestinal Disorders: Gastroesophageal Reflux, Diverticulosis, Polyps Musculoskeletal History of Musculoskeletal Dis: Yes (OSTEOPENIA; T12 COMPRESSION FX; BILATERAL TKR; FALLS) Musculoskeletal Disorders: Osteoporosis, Arthritis, Chronic Back Pain, Fractures Endocrine History of Endocrine Disorders: Yes (MORBID OBESITY) Endocrine Disorders: Hypothyroidsim HEENT History of HEENT Disorders: Yes (GLASSES) Loss of Vision: Bilateral Hearing Impairment: Denies Cancer History of Cancer: Yes Cancer: Skin, Breast Psychosocial History of Psychiatric Problem: No Integumentary History of Skin or Integumenta: Yes (REMOVAL OF SKIN LESIONS) Blood Transfusions History of Blood Disorders: No Adverse Reaction to a Blood Tr: No (N/A) Family Medical History Significant Family History: Hypertension Review of Systems-General Constitutional: malaise, weakness EENTM: No blurred vision, No double vision, No mouth pain, No mouth swelling, No epistaxis Respiratory: No cough, No dyspnea on exertion, No short of breath Cardiovascular: No chest pain; palpitations Gastrointestinal: abdominal pain; No nausea, No vomiting Genitourinary: No dysuria, No frequency, No hematuria Musculoskeletal: joint pain, joint swelling, muscle pain, muscle stiffness Psychiatric/Neurological: Denies Anxiety, Denies Depressed, Denies Seizure Physical Exam-General Problems Physical Exam Vital Signs Vital Signs - First Documented Capillary Refill : Less Than 3 Seconds General Appearance: no apparent distress, thin Eyes: Bilateral Eye PERRL, Bilateral Eye EOMI HEENT: pharynx normal; No scleral icterus (R), No scleral icterus (L) Neck: non-tender, supple Respiratory: lungs clear, normal breath sounds, no respiratory distress, no accessory muscle use Cardiovascular: no murmur, irregularly irregular Gastrointestinal: soft, no organomegaly; No guarding; tenderness (very minimal) Extremities: no pedal edema, no calf tenderness Neurologic/Psychiatric: alert, oriented x 3 Skin: warm/dry, pallor (slight) Data Review Labs Laboratory Tests 11/02/21 09:50: White Blood Count 18.9H, Red Blood Count 2.99L, Hemoglobin 8.8L, Hematocrit 27L, Mean Corpuscular Volume 92, Mean Corpuscular Hemoglobin 29, Mean Corpuscular Hemoglobin Concent 32, Red Cell Distribution Width 17.4H, Platelet Count 298, Mean Platelet Volume 10.5, Immature Granulocyte % (Auto) 2, Neutrophils (%) (Auto) 78H, Lymphocytes (%) (Auto) 13, Monocytes (%) (Auto) 7, Eosinophils (%) (Auto) 0, Basophils (%) (Auto) 0, Neutrophils # (Auto) 14.8H, Lymphocytes # (Auto) 2.4, Monocytes # (Auto) 1.2H, Eosinophils # (Auto) 0.0, Basophils # (Auto) 0.1, Immature Granulocyte # (Auto) 0.4H, Neutrophils % (Manual) 86, Lymphocytes % (Manual) 12, Monocytes % (Manual) 2, Nucleated Red Blood Cells 1, Huma Cells MODERATE, Elliptocytes SLIGHT, Acanthocytes SLIGHT, Prothrombin Time 36.4H, INR Comment 3.6H, Activated Partial Thromboplast Time 43H, Sodium Level 139, Potassium Level 3.8, Chloride Level 105, Carbon Dioxide Level 22, Anion Gap 12, Blood Urea Nitrogen 33H, Creatinine 1.32H, Estimat Glomerular Filtration Rate 40, BUN/Creatinine Ratio 25, Glucose Level 110H, Calcium Level 8.3L, Corrected Calcium 9.4, Magnesium Level 2.3, Total Bilirubin 0.7, Aspartate Amino Transf (AST/SGOT) 17, Alanine Aminotransferase (ALT/SGPT) 18, Alkaline Phosphatase 58, Total Protein 5.1L, Albumin 2.6L, Procalcitonin 0.07 11/02/21 10:04: Urine Color YELLOW, Urine Clarity SL CLOUDY, Urine pH 5.5, Urine Specific [place] 1.010L, Urine Protein NEGATIVE, Urine Glucose (UA) NEGATIVE, Urine Ketones NEGATIVE, Urine Nitrite NEGATIVE, Urine Bilirubin NEGATIVE, Urine Urobilinogen 0.2, Urine Leukocyte Esterase 2+H, Urine RBC (Auto) NEGATIVE, Urine RBC RARE, Urine WBC 50-100H, Urine Squamous Epithelial Cells RARE, Urine Crystals NONE, Urine Bacteria LARGEH, Urine Casts PRESENT, Urine Hyaline Casts RARE, Urine Mucus SMALLH, Urine Culture Indicated YES 11/02/21 11:05: Lactic Acid Level 2.19*H Assessment/Plan Assessment/Plan Assessment/Plan GI bleed Anemia Plan to hold Coumadin, give one dose of Vitamin K, prep tomorrow for possible EGD/Colon on wednesday. Dr. Hernandez will take over tomorrow. She can be on clears, use IS and is getting transfused PRBCs. MAE TRUJILLO DO November 02, 2021 15:34
[2021-11-02] MEDS ORDERED: PHYTONADIONE (ADULT) INJECTION 10 MG in NS (IVPB) 50 ML IV ONE (16:00)
[2021-11-02 16:20] LABS: HEMOGLOBIN 7.2 g/dL (11.5-16.0)
[2021-11-02] MEDS: metroNIDAZOLE 500MG/100ML IVPB 100 ML IV SCH (22:27)
[2021-11-03] MEDS: NS IV 1000 ML 1,000 ML IV SCH ×3 (00:25→18:24)
[2021-11-03 04:58] LABS: BASOPHILS % (AUTO) 0 % (0-10); EOSINOPHILS # (AUTO) 0.1 10^3/uL (0.0-0.3); EOSINOPHILS % (AUTO) 0 % (0-10); HEMATOCRIT 21 % (35-52); LYMPHOCYTES # (AUTO) 1.2 10^3/uL (1.0-4.0); LYMPHOCYTES % (AUTO) 7 % (12-44); MEAN CORPUSCULAR HEMOGLOBIN 30 pg (25-34); MEAN CORPUSCULAR HGB CONC 32 g/dL (32-36); MEAN CORPUSCULAR VOLUME 93 fL (80-99); MEAN PLATELET VOLUME 10.6 fL (9.0-12.2); MONOCYTES # (AUTO) 0.8 10^3/uL (0.0-1.0); MONOCYTES % (AUTO) 5 % (0-12); NEUTROPHILS % (AUTO) 85 % (42-75); PLATELET COUNT 213 10^3/uL (130-400); WHITE BLOOD COUNT 17.6 10^3/uL (4.3-11.0)
[2021-11-03 05:05] LABS: HEMOGLOBIN 6.7 g/dL (11.5-16.0)
[2021-11-03] MEDS: metroNIDAZOLE 500MG/100ML IVPB 100 ML IV SCH ×3 (05:12→22:09)
[2021-11-03 05:18] LABS: CALCIUM 6.9 MG/DL (8.5-10.1); CREATININE SERUM 0.9 MG/DL (0.60-1.30); POTASSIUM 3.4 MMOL/L (3.6-5.0)
[2021-11-03] MEDS ORDERED: NS IV 500 ML 500 ML IV SCH (05:30)
[2021-11-03] MEDS: MAGNESIUM 1 GM/100 ML IVPB 100 ML IV SCH ×3 (06:59→14:37)
[2021-11-03] MEDS: POTASSIUM CL 10MEQ/50ML IVPB 50 ML IV SCH ×5 (06:59→15:36)
[2021-11-03] MEDS: KCL 20 MEQ TAB (K-DUR) PO SCH (07:00)
--- NOTE | 2021-11-03 07:53 | History & Physical ---
PENNIE LITTLE 11/03/21 0753: History of Present Illness History of Present Illness Reason for visit/HPI 81yo female arrive via EMS from home after falling and hitting the back of her head. She denies that she lost consciousness, but reports she has been dizzy for a long time. She reports pain on her head, neck and on her right leg on admission on 11/02. She also reports that she has had 3 days of bloody stools and some dysuria. She also reports some confusion, and says she feels a bit better today and denies any more bowel movements. Her PMH includes being on Coumadin for chronic atrial fibrillation for many years. Date of Admission November 02, 2021 at 11:35 Date Seen by a Provider: November 03, 2021 Time Seen by a Provider: 07:15 I consulted on this patient on 11/03/21 07:46 Attending Physician Sindhu Carvalho MD Admitting Physician Colette Pisano MD Consult Allergies and Home Medications Allergies Coded Allergies: Sulfa (Sulfonamide Antibiotics) (Verified Allergy, Mild, RASH, 10/26/18) Patient Home Medication List Alendronate Sodium (Alendronate Sodium) 35 Mg Tablet, 35 MG PO MON, (Reported) Entered as Reported by: DYLAN OSBORN on 09/08/19 1306 Last Action: Held Aspirin (Aspirin EC) 81 Mg Tablet.dr, 81 MG PO DAILY, (Reported) Entered as Reported by: EARL CHERRY on 08/26/16 0819 Last Action: Held Atorvastatin Calcium (Atorvastatin Calcium) 20 Mg Tablet, 20 MG PO HS, (Reported) Entered as Reported by: ZAC CABEZAS on 07/03/18 0005 Last Action: Held Cholecalciferol (Vitamin D3) (Vitamin D3) 25 Mcg (1000 Unit) Tablet, 25 MCG PO DAILY, (Reported) Entered as Reported by: WILFREDO HOLT on 11/03/21 1110 Last Action: Held Diltiazem HCl (Diltiazem ER) 120 Mg Capsule.er, 120 MG PO DAILY, (Reported) Entered as Reported by: WILFREDO HOLT on 11/03/21 1110 Last Action: Held Furosemide (Furosemide) 40 Mg Tablet, 40 MG PO DAILY, (Reported) Entered as Reported by: WILFREDO HOLT on 5/9/22 1112 Last Action: Held Levothyroxine Sodium (Levothyroxine Sodium) 50 Mcg Tablet, 50 MCG PO DAILY, (Reported) Entered as Reported by: WILFREDO HOLT on 11/03/211109 Last Action: Continued Magnesium Oxide (Magnesium Oxide) 250 Mg Tablet, 250 MG PO DAILY, (Reported) Entered as Reported by: HAI CABEZAS on 11/09/18 0959 Last Action: Held Potassium Chloride (Potassium Chloride) 20 Meq Tablet.er, 20 MEQ PO DAILY, (Reported) Entered as Reported by: WILFREDO HOLT on 11/03/211109 Last Action: Held Warfarin Sodium (Warfarin Sodium) 4 Mg Tablet, 4 MG PO GUZMAN,MO,,WE,,SAT @1800, (Reported) Entered as Reported by: WILFREDO HOLT on 09/08/191509 Last Action: Held Warfarin Sodium (Warfarin Sodium) 4 Mg Tablet, 2 MG PO FRI @1800, (Reported) Entered as Reported by: WILFREDO HOLT on 11/03/211109 Last Action: Held Discontinued Medications Calcium Carbonate/Vitamin D3 (Calcium 500 + Vit D 400 Tablet) 1 Each Tablet, 1 EACH PO DAILY, (Reported) Discontinued Reason: No Longer Taking Entered as Reported by: WILFREDO HOLT on 09/08/191509 Last Action: Discontinued Diltiazem HCl (Diltiazem 24Hr ER) 120 Mg Cap.er.24h, 120 MG PO DAILY Discontinued Reason: No Longer Taking Prescribed by: COLETTE PISANO on 09/19/19934 Last Action: Discontinued Doxycycline Hyclate (Doxycycline Hyclate) 100 Mg Tablet, 100 MG PO BID@07,17 Discontinued Reason: No Longer Taking Prescribed by: COLETTE PISANO on 09/19/19934 Last Action: Discontinued Ergocalciferol (Vitamin D2) (Vitamin D2) 50 Mcg Capsule, 50 MCG PO DAILY, (Reported) Discontinued Reason: Prescription changed Entered as Reported by: WILFREDO HOLT on 09/08/191509 Furosemide (Furosemide) 40 Mg Tablet, 40 MG PO DAILY, (Reported) Discontinued Reason: No Longer Taking Entered as Reported by: LORNA TEE on 07/04/18 1446 Last Action: Discontinued Levothyroxine Sodium (Levothyroxine Sodium) 88 Mcg Tablet, 88 MCG PO MON,TUE,THUR,FRI,SAT, (Reported) Discontinued Reason: No Longer Taking Entered as Reported by: DYLAN OSBORN on 09/08/19 1306 Last Action: Discontinued Levothyroxine Sodium (Levothyroxine Sodium) 88 Mcg Tablet, 44 MCG PO WED,WEDN, (Reported) Discontinued Reason: No Longer Taking Entered as Reported by: WILFREDO HOLT on 09/08/19 1510 Last Action: Discontinued Potassium Chloride (Klor-Con M20) 20 Meq Tab.er.prt, 20 MEQ PO DAILY, (Reported) Discontinued Reason: No Longer Taking Entered as Reported by: EARL CHERRY on 08/26/16 0819 Last Action: Discontinued Warfarin Sodium (Warfarin Sodium) 5 Mg Tablet, 5 MG PO UD, (Reported) Discontinued Reason: No Longer Taking Entered as Reported by: DYLAN OSBORN on 09/08/19 1306 Last Action: Discontinued Past Qfumzsg-Ernuan-Erfued Hx Patient Social History Tobacco Use?: No Smoking Status: Former Smoker Substance use?: No Alcohol Use?: No Immunizations Up To Date Date of Influenza Vaccine: Apr 06, 2019 First/Initial COVID19 Vaccinat: 12/2020 Second COVID19 Vaccination Mati: 12/2020 Tetanus Booster (TDap): Unknown Date of Pneumonia Vaccine: Apr 06, 2018 Seasonal Allergies Seasonal Allergies: Yes Current Status Advance Directives: Yes Advance Directive Location: Copy placed in chart Communicates: Verbally Primary Language: Czech Preferred Spoken Language: Czech Is interpretation needed?: No Past Medical History Surgeries: Adenoidectomy, Appendectomy, Breast, Cardiac, Coronary Stent, Gallbladder, Joint Replacement, Oophorectomy, Orthopedic, Tonsillectomy Sleep Apnea Currently Using CPAP: No Currently Using BIPAP: No Atrial Fibrillation, Chronic Edema/Swelling, Coronary Artery Disease, Deep Vein Thrombosis, High Cholesterol, Hypertension, Irregular Heartbeat, Peripheral Vascular, Valvular Heart Disease Vertigo 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 Sexually Transmitted Disease: No HIV/AIDS: No Kidney Stones Gastroesophageal Reflux, Diverticulosis, Polyps Osteoporosis, Arthritis, Chronic Back Pain, Fractures Hypothyroidsim Loss of Vision: Bilateral Hearing Impairment: Denies Skin, Breast Did You Recieve Any Treatments: Yes What Type of Treatment Did You: Radiation, Surgical Intervention RIGHT BREAST CANCER WITH LUMPECTOMY-NO LYMPH NODE REMOVAL HAS ALSO HAD RADIATION Blood Disorders: No Adverse Reaction/Blood Tranf: No (N/A) Family Medical History Hypertension PSH: -MULTIPLE CARDIAC CATHS--STENT X 1 TO LAD IN 2016-LAST CATH 10/2018--PATENT STENT WITH MILD TO MODERATE DISEASE, NO INTERVENTION AT THAT TIME. EF 60% -EGD'S/COLONOSCOPIES -RIGHT BREAST LUMPECTOMY FOR CANCER -SPLENECTOMY -CHOLECYSTECTOMY -APPENDECTOMY -CYSTOSCOPY WITH URETHRAL DILATION -KIDNEY STONE REMOVAL -TONSILLECTOMY/ADENOIDECTOMY -BILATERAL TOTAL KNEE REPLACEMENTS Review of Systems Constitutional: No chills, No fever EENTM: blurred vision; No epistaxis Respiratory: No hemoptysis; short of breath; No wheezing Cardiovascular: No chest pain, No palpitations Gastrointestinal: No diarrhea, No hematemesis; melena Genitourinary: dysuria; No frequency, No hematuria Musculoskeletal: joint pain, neck pain Skin: other (Rigth leg pain and edema b/l) Psychiatric/Neurological: Denies Numbness, Denies Tremors Physical Exam Vital Signs Vital Signs - First Documented Capillary Refill : Less Than 3 Seconds Height, Weight, BMI Height: 5'7.00" Weight: 209lbs. 0.0oz. [id number]; 33.80 BMI Method:Stated General Appearance: No Apparent Distress, Obese HEENT: PERRL/EOMI, Normal ENT Inspection Respiratory: Chest Non Tender, No Accessory Muscle Use, No Respiratory Distress Cardiovascular: Irregularly Irregular, Tachycardia Gastrointestinal: Normal Bowel Sounds; No Hepatomegaly Rectal: Deferred Extremity: Calf Tenderness, Pedal Edema, Swelling Neurologic/Psychiatric: Alert, Oriented x3 Skin: Other (brusing B/L LE from fall, B/L LE edema and erythema that is more pronounced on left side) Lymphatic: No Adenopathy Assessment/Plan Assessment and Plan UTI Anemia History of falls Leukocytosis Hypokalemia Hypercloremia Elevated BUN Elevated Creatinine Tachycardia Low calcium elevated Lactic Acid Hypothyroidism 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 Will hold her anticoagulation medications. General surgery on consult and will scope her Wednesday, keep on clear liquid diet, NPO after midnight, IV fluids, PPI. 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 Dizziness -Head CT was normal on 11/02 correction Anticoagulation use HTN CAD High Cholesterol GERD osteoporosis Thoracic compression fracture History of B/L knee replacement Admission Diagnosis UTI Anemia History of falls Leukocytosis Hypokalemia Hypercloremia Elevated BUN Elevated Creatinine Tachycardia Low calcium elevated Lactic Acid 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 SHE HAD SCANS OF HEAD, NECK, SPINE, LEGS AND THERE WERE NO ACUTE FRACTURES. SHE REPORTS THAT SHE HAS BEEN HAVING BLOODY STOOLS OFF AND ON FOR ABOUT A WEEK. Date of Admission 11/03/21 Date Seen by a Provider: November 03, 2021 Time Seen by a Provider: 08:50 Attending Physician COLETTE PISANO MD Admitting Physician COLETTE PISANO MD Consult DR. BOO HANNA Allergies and Home Medications Allergies Coded Allergies: Sulfa (Sulfonamide Antibiotics) (Verified Allergy, Mild, RASH, 10/26/18) Patient Home Medication List Home Medication List Reviewed: Yes Alendronate Sodium (Alendronate Sodium) 35 Mg Tablet, 35 MG PO MON, (Reported) Entered as Reported by: DYLAN OSBORN on 09/08/19 1306 Last Action: Held Aspirin (Aspirin EC) 81 Mg Tablet.dr, 81 MG PO DAILY, (Reported) Entered as Reported by: EARL CHERRY on 08/26/16 0819 Last Action: Held Atorvastatin Calcium (Atorvastatin Calcium) 20 Mg Tablet, 20 MG PO HS, (Reported) Entered as Reported by: ZAC CABEZAS on 07/03/18 0005 Last Action: Held Cholecalciferol (Vitamin D3) (Vitamin D3) 25 Mcg (1000 Unit) Tablet, 25 MCG PO DAILY, (Reported) Entered as Reported by: WILFREDO HOLT on 11/03/21 1110 Last Action: Held Diltiazem HCl (Diltiazem ER) 120 Mg Capsule.er, 120 MG PO DAILY, (Reported) Entered as Reported by: WILFREDO HOLT on 11/03/211109 Last Action: Held Furosemide (Furosemide) 40 Mg Tablet, 40 MG PO DAILY, (Reported) Entered as Reported by: WILFREDO HOLT on 11/03/211111 Last Action: Held Levothyroxine Sodium (Levothyroxine Sodium) 50 Mcg Tablet, 50 MCG PO DAILY, (Reported) Entered as Reported by: WILFREDO HOLT on 11/03/211109 Last Action: Continued Magnesium Oxide (Magnesium Oxide) 250 Mg Tablet, 250 MG PO DAILY, (Reported) Entered as Reported by: HAI CABEZAS on 11/09/18958 Last Action: Held Potassium Chloride (Potassium Chloride) 20 Meq Tablet.er, 20 MEQ PO DAILY, (Reported) Entered as Reported by: WILFREDO HOLT on 11/03/211109 Last Action: Held Warfarin Sodium (Warfarin Sodium) 4 Mg Tablet, 4 MG PO GUZMAN,MO,,,TH,SAT @1800, (Reported) Entered as Reported by: WILFREDO HOLT on 09/08/191509 Last Action: Held Warfarin Sodium (Warfarin Sodium) 4 Mg Tablet, 2 MG PO FRI @1800, (Reported) Entered as Reported by: WILFREDO HOLT on 11/03/211109 Last Action: Held Discontinued Medications Calcium Carbonate/Vitamin D3 (Calcium 500 + Vit D 400 Tablet) 1 Each Tablet, 1 EACH PO DAILY, (Reported) Discontinued Reason: No Longer Taking Entered as Reported by: WILFREDO HOLT on 09/08/191509 Last Action: Discontinued Diltiazem HCl (Diltiazem 24Hr ER) 120 Mg Cap.er.24h, 120 MG PO DAILY Discontinued Reason: No Longer Taking Prescribed by: COLETTE PISANO on 09/19/19934 Last Action: Discontinued Doxycycline Hyclate (Doxycycline Hyclate) 100 Mg Tablet, 100 MG PO BID@07,17 Discontinued Reason: No Longer Taking Prescribed by: COLETTE PISANO on 09/19/19934 Last Action: Discontinued Ergocalciferol (Vitamin D2) (Vitamin D2) 50 Mcg Capsule, 50 MCG PO DAILY, (Reported) Discontinued Reason: Prescription changed Entered as Reported by: WILFREDO HOLT on 09/08/191509 Furosemide (Furosemide) 40 Mg Tablet, 40 MG PO DAILY, (Reported) Discontinued Reason: No Longer Taking Entered as Reported by: LORNA TEE on 07/04/18 1446 Last Action: Discontinued Levothyroxine Sodium (Levothyroxine Sodium) 88 Mcg Tablet, 88 MCG PO MON,TUE, THUR,FRI,SAT, (Reported) Discontinued Reason: No Longer Taking Entered as Reported by: DYLAN OSBORN on 09/08/19 1306 Last Action: Discontinued Levothyroxine Sodium (Levothyroxine Sodium) 88 Mcg Tablet, 44 MCG PO WED,, (Reported) Discontinued Reason: No Longer Taking Entered as Reported by: WILFREDO HOLT on 09/08/191509 Last Action: Discontinued Potassium Chloride (Klor-Con M20) 20 Meq Tab.er.prt, 20 MEQ PO DAILY, (Reported) Discontinued Reason: No Longer Taking Entered as Reported by: EARL CHERRY on 08/26/16 0819 Last Action: Discontinued Warfarin Sodium (Warfarin Sodium) 5 Mg Tablet, 5 MG PO UD, (Reported) Discontinued Reason: No Longer Taking Entered as Reported by: DYLAN OSBORN on 09/08/19 1306 Last Action: Discontinued Past Acgxyvo-Tbtkfk-Rgohqk Hx Patient Social History Marrital Status: Number of Children: 6 Number of living children: 6 Living Status: LIVES AT HOME NO Employed/Student: retired Smoking Status: Former Smoker (QUIT IN 2009) Use of E-Cig and/or Vaping dev: No Substance use?: No Alcohol Use?: No Past Medical History Surgeries: Abdominal (SPLENECTOMY 195), Appendectomy, Breast (MASTECTOMY RIGHT BREAST), Gallbladder, Orthopedic (LEFT AND RIGHT TOTAL KNEE REPLACEMENTS), Tonsillectomy Currently Using CPAP: No Currently Using BIPAP: No Atrial Fibrillation, Hypertension Gastrointestinal Bleed Osteoporosis, Arthritis Hypothyroidsim Loss of Vision: Denies Hearing Impairment: Hard of Hearing Breast Did You Recieve Any Treatments: Yes What Type of Treatment Did You: Surgical Intervention Blood Disorders: No Adverse Reaction/Blood Tranf: No Family Medical History Reviewed Nursing Family Hx Cancer (BREAST CANCER DAUGHTER AND MOTHER) Review of Systems Constitutional: No chills, No fever; malaise, weakness EENTM: No hoarseness, No throat pain Respiratory: No cough; dyspnea on exertion, short of breath Cardiovascular: No chest pain; edema; No palpitations Gastrointestinal: No abdominal pain, No constipation, No diarrhea; melena Genitourinary: dysuria; No frequency, No hematuria Musculoskeletal: back pain, joint pain, muscle weakness, neck pain Skin: other (Rigth leg pain and edema b/l) Psychiatric/Neurological: Denies Anxiety, Denies Depressed; Weakness All Other Systems Reviewed Negative Unless Noted: Yes Physical Exam General Appearance: No Apparent Distress, WD/WN, Obese HEENT: PERRL/EOMI, Normal ENT Inspection, Pharynx Normal Neck: Non Tender, Supple Respiratory: Chest Non Tender, Lungs Clear, Normal Breath Sounds, No Accessory Muscle Use Cardiovascular: Systolic Murmur, Irregularly Irregular, Tachycardia Gastrointestinal: Normal Bowel Sounds, No Organomegaly, No Pulsatile Mass, Non Tender, Soft Rectal: Deferred Extremity: Calf Tenderness (OVER BRUISED SITE ON LEFT AND RIGHT), Pedal Edema (3+ PITTING), Swelling, Other (BRUISING OVER POSTERIOR THIGH ON RIGHT) Skin: Ecchymosis (MULTIPLE SITES, LEFT CALF, RIGHT CALF, RIGHT LATERAL AND POSTERIOR HIP) Lymphatic: No Adenopathy Assessment/Plan Assessment and Plan SEPSIS SYNCOPAL EPISODE GASTROINTESTINAL BLEED URINARY TRACT INFECTION CHRONIC ANTICOAGULATION WITH SUPRATHERAPEUTIC INR ATRIAL FIBRILLATION ACUTE HYPOTENSION CHRONIC HYPERTENSION HYPOTHYROIDISM GENERALIZED WEAKNESS FALLING EPISODES HYPOKALEMIA LEUKOCYTOSIS OSTEOPOROSIS ESOPHAGEAL REFLUX CHRONIC COMPRESSION FRACTURE OF SPINE HYPERLIPIDEMIA SEPSIS WITH URINARY TRACT INFECTION - PT ON IV ROCEPHIN, MONITOR CULTURE REPORT - LACTIC ACID NOW NORMAL SYNCOPAL EPISODE DUE TO GASTROINTESTINAL BLEED AND SEVERE ANEMIA - PT IS RECEIVING BLOOD, CHECK IRON PANEL - WILL TRANSFUSE AGAIN IF NEEDED. CHRONIC ANTICOAGULATION WITH SUPRATHERAPEUTIC INR - INR NORMALIZED THIS MORNING, CANNOT RECEIVE DVT PROPHYLAXIS DUE TO GI BLEEDING ATRIAL FIBRILLATION - DEFER TO DR. HANNA ACUTE HYPOTENSION - DISCUSSED WITH DR. HANNA - HE WILL MANAGE. CHRONIC HYPERTENSION -DEFER TO DR. HANNA - HE MANAGES HER ATRIAL FIBRILLATION, WILL ADDRESS BLOOD PRESSURE MEDICATION PRIOR TO DC. HYPOTHYROIDISM - - MONITOR TSH, FREE T4 GENERALIZED WEAKNESS WITH FALLING EPISODES - REPLENISH HEMOGLOBIN, AND WILL START PHYSICAL THERAPY ONCE STABLE, AND WILL CONSIDER PLACEMENT AT ALF, FAMILY WILL NEED TO CONSIDER PT TO HAVE HOME HEALTH AND PAID CAREGIVERS IF THEY CHOOSE NOT TO HAVE HER GO TO THE ALF ON DISCHARGE. HYPOKALEMIA - REPLENISH PER ICU PROTOCOL. LEUKOCYTOSIS - REPEAT LABS IN MORNING, SHOULD IMPROVE WITH ANTIBIOTICS. OSTEOPOROSIS WITH CHRONIC COMPRESSION FRACTURE OF SPINE - HOLD BISPHOSPHONATE THERAPY FOR NOW ESOPHAGEAL REFLUX - PPI IV HYPERLIPIDEMIA - HOLD ANTILIPEMIC AGENTS DVT PROPHYLAXIS, CANNOT USE LOVENOX DUE TO GI BLEEDING, HOLDING COUMADIN DUE TO GI BLEEDING, CANNOT USE CALF SCD'S DUE TO CALF PAIN, WILL PLACE FOOT PUMPS ON PT IF TOLERATED. GI PROPHYLAXIS WTIH PPI THERAPY. Admission Diagnosis SEPSIS SYNCOPAL EPISODE GASTROINTESTINAL BLEED URINARY TRACT INFECTION CHRONIC ANTICOAGULATION WITH SUPRATHERAPEUTIC INR ATRIAL FIBRILLATION ACUTE HYPOTENSION CHRONIC HYPERTENSION HYPOTHYROIDISM GENERALIZED WEAKNESS FALLING EPISODES HYPOKALEMIA LEUKOCYTOSIS OSTEOPOROSIS ESOPHAGEAL REFLUX CHRONIC COMPRESSION FRACTURE OF SPINE HYPERLIPIDEMIA Admission Status: Inpatient Order (span 2 midnights) Reason for Inpatient Admission: INPATIENT ADMISSION FOR GI BLEEDING - WILL REQUIRE AT LEAST THREE - FOUR MIDNIGHTS IN HOSPITAL Supervisory-Addendum Brief Verification & Attestation Participated in pt care: history, MDM, physical Personally performed: exam, history, MDM, supervision of care Care discussed with: Medical Student Procedures: n/a Results interpretation: Verified all documentation SEE MY DOCUMENTATION FOR DETAILS PENNIE LITTLE November 03, 2021 07:53 COLETTE PISANO MD November 03, 2021 19:58
[2021-11-03] MEDS ORDERED: NS IV 500 ML 500 ML ONE (08:05)
[2021-11-03 08:20] VITALS: BP 100/74
[2021-11-03 08:21] LABS: INR 1.5 (0.8-1.4); PROTHROMBIN TIME PATIENT 18.7 SEC (12.2-14.7)
[2021-11-03 08:25] VITALS: BP 113/78
[2021-11-03 08:30] VITALS: BP 118/72
[2021-11-03 08:35] VITALS: BP 121/69
[2021-11-03 09:24] LABS: FREE T4 (FREE THYROXINE) 1.02 NG/DL (0.70-1.48)
--- NOTE | 2021-11-03 10:24 | Consultation-Cardiology ---
HPI-Cardiology Cardiology Consultation Date of Consultation 11/03/21 Date of Admission Time Seen by Provider: 10:17 Indication: Atrial fibrillation HPI 81-year-old lady with history of coronary artery disease, paroxysmal atrial fibrillation, was admitted for generalized weakness, episodes of dizziness and multiple falls. She reporting hematochezia and noted to have progressive a nemia. Her INR was elevated. She reported some chest tightness across her chest and shortness of breath and mild pedal edema. Episodes of dizziness and lightheadedness. No full syncope was reported. She was noted to have urinary tract infection on admission. Home Medications & Allergies Allergies: Coded Allergies: Sulfa (Sulfonamide Antibiotics) (Verified Allergy, Mild, RASH, 10/26/18) Home Medication List Reviewed: Yes WKN-Raacjd-Oiiwla Hx Patient Social History Marital Status: Employed/Student: retired Smoking Status: Former Smoker Type Used: Cigarettes 2nd Hand Smoke Exposure: Yes Recent Hopitalizations: No Have you traveled recently?: No Alcohol Use?: No Immunizations Up To Date Tetanus Booster (TDap): Unknown Date of Pneumonia Vaccine: Apr 06, 2018 Date of Influenza Vaccine: Apr 06, 2019 Past Medical History Discussed below Family Medical History Significant Family History: Hypertension Family Medical Hx Noncontributory Review of Systems-General Review of Systems Constitutional: see HPI; No chills; dizziness; No fever; malaise, weakness EENTM: see HPI, blurred vision; No epistaxis Respiratory: see HPI; No cough; dyspnea on exertion; No hemoptysis, No orthopnea, No phlegm; short of breath; No stridor, No wheezing, No other Cardiovascular: see HPI, chest pain, edema; No palpitations Gastrointestinal: see HPI; No diarrhea, No hematemesis; melena (Bright red blood per rectum) Genitourinary: see HPI, dysuria; No frequency, No hematuria Musculoskeletal: see HPI, joint pain, neck pain Skin: see HPI, other (Rigth leg pain and edema b/l) Psychiatric/Neurological: See HPI; Denies Numbness, Denies Tremors Reviewed Test Results Reviewed Test Results Lab Laboratory Tests Test 11/02/21 11:05 11/02/21 16:08 11/03/21 04:40 Range/Units Lactic Acid Level 2.19 *H 1.61 0.50-2.00 MMOL/L Hemoglobin 7.2 L 6.7 #*L 11.5-16.0 g/dL Hematocrit 22 L 21 L 35-52 % White Blood Count 17.6 H 4.3-11.0 10^3/uL Red Blood Count 2.27 L 3.80-5.11 10^6/uL Mean Corpuscular Volume 93 80-99 fL Mean Corpuscular Hemoglobin 30 25-34 pg Mean Corpuscular Hemoglobin Concent 32 32-36 g/dL Red Cell Distribution Width 17.9 H 10.0-14.5 % Platelet Count 213 130-400 10^3/uL Mean Platelet Volume 10.6 9.0-12.2 fL Immature Granulocyte % (Auto) 3 % Neutrophils (%) (Auto) 85 H 42-75 % Lymphocytes (%) (Auto) 7 L 12-44 % Monocytes (%) (Auto) 5 0-12 % Eosinophils (%) (Auto) 0 0-10 % Basophils (%) (Auto) 0 0-10 % Neutrophils # (Auto) 15.0 H 1.8-7.8 10^3/uL Lymphocytes # (Auto) 1.2 1.0-4.0 10^3/uL Monocytes # (Auto) 0.8 0.0-1.0 10^3/uL Eosinophils # (Auto) 0.1 0.0-0.3 10^3/uL Basophils # (Auto) 0.0 0.0-0.1 10^3/uL Immature Granulocyte # (Auto) 0.5 H 0.0-0.1 10^3/uL Prothrombin Time 18.7 H 12.2-14.7 SEC INR Comment 1.5 H 0.8-1.4 Activated Partial Thromboplast Time 34 24-35 SEC Sodium Level 141 135-145 MMOL/L Potassium Level 3.4 L 3.6-5.0 MMOL/L Chloride Level 114 H 98-107 MMOL/L Carbon Dioxide Level 16 L 21-32 MMOL/L Anion Gap 11 5-14 MMOL/L Blood Urea Nitrogen 26 H 7-18 MG/DL Creatinine 0.90 0.60-1.30 MG/DL Estimat Glomerular Filtration Rate 63 BUN/Creatinine Ratio 29 Glucose Level 83 70-105 MG/DL Calcium Level 6.9 L 8.5-10.1 MG/DL Thyroid Stimulating Hormone (TSH) 0.74 0.35-4.94 UIU/ML Free Thyroxine 1.02 0.70-1.48 NG/DL Physical Exam Physical Exam Vital Signs Vital Signs - First Documented Capillary Refill : Less Than 3 Seconds Height, Weight, BMI Height: 5'7.00" Weight: 209lbs. 0.0oz. 94.633414it; 33.80 BMI Method:Stated General Appearance: No Apparent Distress, Obese Eyes: Bilateral Eye PERRL, Bilateral Eye EOMI HEENT: PERRL/EOMI, Normal ENT Inspection Neck: Other Respiratory: Chest Non Tender, No Accessory Muscle Use, No Respiratory Distress Cardiovascular: Systolic Murmur, Irregularly Irregular, Tachycardia Gastrointestinal: Normal Bowel Sounds; No Hepatomegaly Rectal: Deferred Back: Normal Inspection, No CVA Tenderness, No Vertebral Tenderness Extremity: Calf Tenderness, Pedal Edema, Swelling Neurologic/Psychiatric: Alert, Oriented x3 Skin: Other (brusing B/L LE from fall, B/L LE edema and erythema that is more pronounced on left side) Lymphatic: No Adenopathy A/P-Cardiology Admission Diagnosis GI bleed Anemia Urinary tract infection Atrial fibrillation Assessment/Plan Anemia, lower GI bleed, receiving blood transfusion. Continue to monitor H&H. Bright red blood per rectum, reporting bleeding for the past week. She is scheduled for upper and lower endoscopy with Dr. Hernandez. Chest pain, nonspecific etiology, patient had extensive cardiac history. Cannot tolerate anticoagulation at this time, conservative management is recommended. Continue to monitor Atrial fibrillation with rapid ventricular response, history of permanent atrial fibrillation. Receiving blood transfusion and IV fluids, will use IV Cardizem to achieve adequate heart rate control. [id number] score 5, maintained on Coumadin as an outpatient, supratherapeutic INR. Coumadin is on hold at this time. We discussed the possibility of using Xarelto after stabilizing her. Urinary tract infection, managed by primary care physician. Dizziness, multiple falls, no full syncope. Patient has history of generalized weakness and multiple falls in the past. History of dysphagia, heartburn, followed and managed by primary care physician Coronary artery disease- Cardiac catheterization done October 09, 2015 revealed 70 percent stenosis in the mid LAD. Successful stent deployment using 2.5 x 24 mm Promus Premier drug- eluting stent. Otherwise mild disease in the circumflex artery and RCA. Nonobstructive disease. Cardiac catheterization was done in September 2016 showing patent stent in the LAD, mild disease at the distal LAD and distal circumflex artery nonobstructive disease, Cardiac catheterization done in October 2018 after having an abnormal stress test which showed patent stent in the mid LAD, calcified LAD system tapering down into a very small artery distally with iavp-jc-rmmymeel disease nonobstructive disease, calcified right coronary system, dominant artery with mvtb-qz-jdrlmqob disease nonobstructive disease. Normal left ventricular size with ejection fraction 60 percent. Conservative management, no intervention is needed. Continue to monitor Congestive heart failure, echocardiogram was done on 2019 showing normal left ventricular size with systolic dysfunction ejection fraction 40 percent, mild mitral regurgitation, hlzc-bb-aqrampzu tricuspid regurgitation, pulmonary artery pressure of 35-40 mmHg. I will repeat 2D echocardiogram Chronic peripheral edema. Unable to tolerate compression socks Slightly prominent aortic arch with hypertensive changes, blood pressure is under good control, continue on current medications and monitor COPD/obstructive sleep apnea, using CPAP. Hypothyroidism, followed and managed by Dr. Pisano. Hypertension, currently borderline hypotensive. Continue to monitor blood pressure Hyperlipidemia, monitor lipids Pulmonary hypertension, PA pressure 35-40 mmHg per echo done on September 09, 2019. 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 Reid Osteopenia, followed by primary care physician ANAHY HANNA MD November 03, 2021 10:24
[2021-11-03 10:36] VITALS: BP 118/86
[2021-11-03] MEDS ORDERED: GOLYTELY POWDER 4000 ML BTL PO NR (10:45)
[2021-11-03] MEDS: cefTRIAXone 1 GM PRE-MIX 50 ML IV SCH (11:00)
[2021-11-03] MEDS: dilTIAZem DRIP PRE-MIX 125 ML IV SCH ×2 (11:00→22:51)
[2021-11-03] MEDS ORDERED: DILT120C85 PO (11:10)
[2021-11-03] MEDS ORDERED: POTA-51 PO (11:10)
[2021-11-03] MEDS ORDERED: WARF4TAB3 PO (11:10)
[2021-11-03] MEDS ORDERED: CHOL10004 PO (11:10)
[2021-11-03] MEDS ORDERED: LEVO50TA6 PO (11:10)
[2021-11-03] MEDS ORDERED: FURO40TA4 PO (11:12)
[2021-11-03] MEDS ORDERED: KCL 20 MEQ TAB (K-DUR) PO NR (11:45)
--- NOTE | 2021-11-03 12:01 | Tele-ICU Progress Note ---
Subjective Date Seen by a Provider: November 03, 2021 Time Seen by a Provider: 12:01 Subjective/Events-last exam (Tele-ICU Physician , Progress Note ) Available chrt/ vitals / labs / Images reviewed Video assessment done using teleICU camera, rest of exam as per RN Discussed with RN , EXAM PER RN Events overnight : Afebrile FiO2 - ra I/O = Drips: ns 150 Pressors: , hemodynamically stable Consultants: Hospital course: -: +Sev Sepsis 81 y/o F - Trauma/Fall - UTI - LGI Bleed. 11/03 ECHO - EF 55% RVSP 30 A/P GIB/ ABLA in face of AC ( coumadine - transfusion prbc -reversed AC - scope ploanned for 11/04 - PPI bid iv A fib RVR - on cadizem gtt ( NPO ) - Ac reversed , INR 1.5 - to resume when ok with Sx and cards - 11/03 ECHO - EF 55% RVSP 30 UTI with ? Klens - on cefepime + metronidazole, final cx pending COPD - stable RIVER- cont CPAP at night Pulm HTN due to above - follow chronic edema reported - diuretics on hold , gentle hydration breast cancer, stage I right breast - status post lumpectomy and sentinel lymph node biopsy in December 2004, received radiation therapy and hormonal therapy replace lytes Lines : periph (Central Line Necessity Reviewed) Potts: + OG: Nutrition: npo Analgesia: Anxiety/ delirium VTE Prophylaxis: scd Stress Ulcer Prophylaxis: Plans in collaboration with bedside consultants and IM MDs. Discussed with RN to reach out if any questions or concerns A total of 33 minutes of critical care time was devoted to this patient today, required to treat and/or prevent further deterioration of critical care condition ( as above) . Sepsis Event Evaluation Height, Weight, BMI Height: 5'7.00" Weight: 209lbs. 0.0oz. 94.147389iv; 33.80 BMI Method:Stated Focused Exam Lactate Level 11/02/21 11:05: Lactic Acid Level 2.19*H 11/02/21 16:08: Lactic Acid Level 1.61 Exam Exam Patient acknowledged, consented, and participated in this virtual visit which was conducted using real time audio/video Vital Signs Date Time Temp Pulse Resp B/P (MAP) Pulse Ox O2 Delivery O2 Flow Rate FiO2 11/03/21 11:30 36.9 95 22 121/81 100 Room Air 11/03/21 11:00 105 18 121/81 100 Room Air 11/03/21 10:36 36.6 94 18 118/86 100 Room Air 11/03/21 10:30 96 19 118/86 100 Room Air 11/03/21 10:00 105 11 121/87 99 Room Air 11/03/21 09:22 100 11/03/21 09:15 105 22 109/79 100 Room Air 11/03/21 09:00 112 7 100 Room Air 11/03/21 08:35 36.5 92 18 121/69 100 Room Air 11/03/21 08:30 36.6 101 18 118/72 100 Room Air 11/03/21 08:30 113 18 121/69 100 Room Air 11/03/21 08:25 36.6 114 18 113/78 100 Room Air 11/03/21 08:20 36.8 97 18 100/74 100 Room Air 11/03/21 08:00 100 Room Air 11/03/21 08:00 112 104/62 94 Room Air 11/03/21 07:40 36.5 112 22 110/68 94 Room Air 11/03/21 07:30 101 10 110/68 Room Air 11/03/21 07:00 99 18 94/69 Room Air 11/03/21 07:00 117 11/03/21 04:00 102 21 100/63 Room Air 11/03/21 04:00 97 Room Air 11/03/21 04:00 36.1 97 Room Air 11/03/21 01:00 101 11/03/21 00:00 100 Room Air 11/03/21 00:00 98 13 102/74 Room Air 11/03/21 00:00 36.5 95 Room Air 11/02/21 22:52 36.7 92 16 92/75 97 Room Air 11/02/21 21:00 103 13 111/60 100 Room Air 11/02/21 20:00 102 18 107/69 100 Room Air 11/02/21 20:00 100 Room Air 11/02/21 19:36 36.5 11/02/21 19:00 112 11/02/21 19:00 112 19 95/76 100 Room Air 11/02/21 18:00 113 16 118/79 100 Room Air 11/02/21 17:00 107 16 95/60 100 Room Air 11/02/21 16:00 36.5 11/02/21 16:00 114 15 107/64 95 Room Air 11/02/21 15:00 110 19 105/63 98 Room Air 11/02/21 14:58 98 Room Air 11/02/21 14:30 125 11/02/21 14:10 36.3 18 106/53 98 Room Air 11/02/21 13:40 108 19 116/66 95 Room Air I & O 11/03/21 06:59 Intake Total 3851 ml Output Total 750 ml Balance 3101 ml Height & Weight Height: 5'7.00" Weight: 209lbs. 0.0oz. 94.480746zs; 33.80 BMI Method:Stated General Appearance: No Apparent Distress, Obese HEENT: PERRL/EOMI, Normal ENT Inspection Neck: Other Respiratory: Chest Non Tender, No Accessory Muscle Use, No Respiratory Distress Cardiovascular: Systolic Murmur, Irregularly Irregular, Tachycardia Capillary Refill: Less Than 3 Seconds Gastrointestinal: soft, no organomegaly; No guarding; tenderness (very minimal) Extremity: Calf Tenderness, Pedal Edema, Swelling Neurologic/Psychiatric: Alert, Oriented x3 Skin: Other (brusing B/L LE from fall, B/L LE edema and erythema that is more pronounced on left side) Lymphatic: No Adenopathy Results Lab Laboratory Tests 11/02/21 09:50 11/02/21 16:08 11/03/21 04:40 Assessment/Plan Assessment/Plan ` DOROTHY BAUGH MD November 03, 2021 12:01
[2021-11-03] MEDS: ONDANSETRON 4 MG/2 ML (SDV) Z0FRAN IV PRN ×2 (12:14→22:08)
[2021-11-03] MEDS ORDERED: NITROGLYCERIN 0.4 MG SL TABS BTL 25'S SL PRN ×2 (12:30→12:45)
--- NOTE | 2021-11-03 12:34 | Diagnostic Imaging Report ---
INDICATION: PICC line placement. COMPARISON: CT dated 11/02/2021 FINDINGS: Single frontal view of the chest demonstrates normal heart size and pulmonary vascularity. Left upper extremity PICC line is seen with tip in the SVC. Lungs show trace left basilar effusion. There is no large effusion on the right. No pneumothorax is seen on either side. Osseous structures show no gross acute abnormalities. IMPRESSION: 1. Left upper extremity PICC line tip in the SVC. 2. Small left basilar effusion. Dictated by: Dictated on workstation # [id number]
[2021-11-03] MEDS ORDERED: morphine INJ 4 MG/ML 1 ML (VIAL/SYRINGE) IVP PRN (12:45)
--- NOTE | 2021-11-03 15:36 | Physical Therapy Evaluation ---
PT Evaluation-General Medical Diagnosis Admission Date November 02, 2021 at 11:35 Medical Diagnosis: fall, UTI, anemia Onset Date: November 02, 2021 Therapy Diagnosis Therapy Diagnosis: impaired mobility, strength, endurance Height/Weight Height (Feet): 5 Height (Inches): 7.00 Weight (Pounds): 209 Weight (Ounces): 0.0 Precautions Precautions/Isolations: Fall Prevention, Standard Precautions Referral Physician: Maia Reason for Referral: Evaluation/Treatment Medical History Pertinent Medical History: Atrial Fib, CAD, Diverticulitis, GERD, HTN, PVD Additional Medical History Past Medical History Surgeries: Adenoidectomy, Appendectomy, Breast, Cardiac, Coronary Stent, Gallbladder, Joint Replacement, Oophorectomy, Orthopedic, Tonsillectomy Sleep Apnea Currently Using CPAP: No Currently Using BIPAP: No Atrial Fibrillation, Chronic Edema/Swelling, Coronary Artery Disease, Deep Vein Thrombosis, High Cholesterol, Hypertension, Irregular Heartbeat, Peripheral Vascular, Valvular Heart Disease Vertigo 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 8-Dupvutvnuj-jxldfrg completes the activity by him/herself with no assistance from a helper. 5-Set-up or Clean-up Assistance-helper sets up or cleans up; patient completes activity. Sidney assists only prior to or following the activity. 4-Supervision or Touching Assistance-helper provides verbal cues and/or touching/steadying and/or contact guard assistance as patient completes activity. Assistance may be provided throughout the activity or intermittently. 3-Partial/Moderate Assistance-helper does LESS THAN HALF the effort. Sidney lifts, holds or supports trunk or limbs, but provides less than half the effort. 2-Substantial/Maximal Assistance-helper does MORE THAN HALF the effort. Sidney lifts or holds trunk or limbs and provides more than half the effort. 0-Ahqcursvv-bvtvrj does ALL the effort. Patient does none of the effort to complete the activity. Or, the assistance of 2 or more helpers is required for the patient to complete the activity. If activity was not attempted, code reason: 7-Patient Refused. 9-Not Applicable-not attempted and the patient did not perform the activity before the current illness, exacerbation or injury. 10-Not Attempted due to Environmental Limitations-(lack of equipment, weather restraints, etc.). 88-Not Attempted due to Medical Conditions or Safety Concerns. Bed Mobility: 6 Transfers (B,C,W/C): 6 Gait: 6 Stairs: 6 Indoor Mobility (Ambulation): Independent Stairs: Independent Patient states she doesn't usually use a walker but has been recently. PT Evaluation-Current Subjective Patient in bed pre tx, agrees to PT, has unrated pain in lateral right leg, has some bruising. Pt/Family Goals to be independent at home Objective Patient Orientation: Person, Place, Situation Attachments: Potts Catheter, IV ROM/Strength ROM Lower Extremities WNL Strength Lower Extremities LLE (hip flexion 2/5, knee flexion 3+/5, knee extension 4/5, dorsiflexion 4/5), RLE (hip flexion 2/5, knee flexion 3+/5, knee extension 4/5, dorsiflexion 4/5) Sensory Vision: Wears Glasses Hearing: Functional Sensation Right Lower Extremit: Intact Sensation Left Lower Extremity: Intact Transfers Roll Left to Right (QC): 3 Sit to Lying (QC): 3 Lying to Sitting/Side of Bed(Q: 3 Sit to Stand (QC): 4 Patient needed min assist for supine to sit but mod assist for sit to supine. Gait Does the Patient Walk?: Yes Mode of Locomotion: Walk Anticipated Mode of Locomotion: Walk Walk 10 feet (QC): 4 Distance: 40' Gait Assistive Device: FWW Comments/Gait Description slow but steady ambulation, slightly SOB after ambulation but O2 was above 90% Balance Sitting Static: Normal Sitting Dynamic: Normal Standing Static: Good Standing Dynamic: Good Treatment BLE supine exercises x20 (AP, QS, GS) Assessment/Needs Patient in bed post tx with nurse call, phone, tray, all needs met. Patient has impaired mobility, strength, endurance. She needs assist with supine <-> sit but just CGA for ambulation. Rehab Potential: Fair PT Senior Living Goals Child Care Worker Goals PT Child Care Worker Goals Time Frame: November 10, 2021 Roll Left & Right (QC): 6 Sit to Lying (QC): 4 Lying-Sitting on Side/Bed(QC): 4 Sit to Stand (QC): 6 Chair/Nyc-xt-Uzabt Xfer(QC): 6 Walk 10 feet (QC): 6 Walk 50ft with 2 Turns (QC): 6 Walk 150 ft (QC): 6 PT Plan Problem List Problem List: Activity Tolerance, Functional Strength, Safety, Balance, Gait, Transfer, Bed Mobility, ROM Treatment/Plan Treatment Plan: Continue Plan of Care Treatment Plan: Bed Mobility, Education, Functional Activity Toro, Functional Strength, Gait, Safety, Therapeutic Exercise, Transfers Treatment Duration: November 10, 2021 Frequency: 6 times per week Estimated Hrs Per Day: .5 hour per day Patient and/or Family Agrees t: Yes Safety Risks/Education Patient Education: Gait Training, Transfer Techniques, Correct Positioning, Safety Issues Teaching Recipient: Patient Teaching Methods: Demonstration, Discussion Response to Teaching: Reinforcement Needed Discharge Recommendations Plan Patient will perform bed mobility and transfer training, balance and endurance training, functional strengthening, stair training, gait training, and educatio n, to improve functional mobility and independence at home. Therapy Discharge Recommendati: Scheduled Assistance, Home & Family, Post Acute PT Time/GCodes Time In: 1505 Time Out: 1525 Total Billed Treatment Time: 20 Total Billed Treatment 1 visit JORGE L BEDOYA PT November 03, 2021 15:35
[2021-11-03 17:20] LABS: POTASSIUM 3.9 MMOL/L (3.6-5.0)
[2021-11-03 17:27] LABS: MAGNESIUM 2.4 MG/DL (1.6-2.4)
--- NOTE | 2021-11-03 19:05 | Progress Note - Surgery ---
Subjective Date Seen by a Provider: November 03, 2021 Time Seen by a Provider: 08:00 Subjective/Events-last exam No abdominal pain. Anemic. Daughter at bedside. Tolerating clears. Denies any new complaints. Denies n/v fever sweats chills shortness of breath or chest pain. Focused Exam Lactate Level 11/02/21 11:05: Lactic Acid Level 2.19*H 11/02/21 16:08: Lactic Acid Level 1.61 Objective Exam Vital Signs Date Time Temp Pulse Resp B/P (MAP) Pulse Ox O2 Delivery O2 Flow Rate FiO2 11/03/21 18:00 98 19 80/55 Room Air 11/03/21 17:00 100 17 109/70 100 Room Air 11/03/21 16:45 92 15 100/69 100 Room Air 11/03/21 16:30 97 15 102/68 100 Room Air 11/03/21 16:15 95 17 110/66 100 Room Air 11/03/21 16:00 100 Room Air 11/03/21 16:00 100 23 108/72 100 Room Air 11/03/21 15:45 101 10 101/70 100 Room Air 11/03/21 15:32 36.6 11/03/21 15:30 92 24 104/66 100 Room Air 11/03/21 15:15 99 16 96 Room Air 11/03/21 15:00 94 24 125/81 100 Room Air 11/03/21 14:45 117 18 116/81 99 Room Air 11/03/21 14:30 100 18 100/71 100 Room Air 11/03/21 14:15 99 18 103/64 100 Room Air 11/03/21 14:00 97 18 107/66 100 Room Air 11/03/21 13:45 99 29 114/73 99 Room Air 11/03/21 13:30 97 11 111/74 100 Room Air 11/03/21 13:15 113 10 91/63 100 Room Air 11/03/21 13:00 105 15 105/74 100 Room Air 11/03/21 12:54 111 11/03/21 12:45 108 25 125/74 100 Room Air 11/03/21 12:30 129 19 105/72 98 Room Air 11/03/21 12:15 110 115/90 100 Room Air 11/03/21 12:00 87 18 113/84 100 Room Air 11/03/21 12:00 100 Nasal Cannula 3.00 11/03/21 11:45 98 15 120/75 100 Room Air 11/03/21 11:30 36.9 95 22 121/81 100 Room Air 11/03/21 11:15 117 21 122/82 100 Room Air 11/03/21 11:00 105 18 121/81 100 Room Air 11/03/21 10:36 36.6 94 18 118/86 100 Room Air 11/03/21 10:30 96 19 118/86 100 Room Air 11/03/21 10:00 105 11 121/87 99 Room Air 11/03/21 09:22 100 11/03/21 09:15 105 22 109/79 100 Room Air 11/03/21 09:00 112 7 100 Room Air 11/03/21 08:35 36.5 92 18 121/69 100 Room Air 11/03/21 08:30 36.6 101 18 118/72 100 Room Air 11/03/21 08:30 113 18 121/69 100 Room Air 11/03/21 08:25 36.6 114 18 113/78 100 Room Air 11/03/21 08:20 36.8 97 18 100/74 100 Room Air 11/03/21 08:00 100 Room Air 11/03/21 08:00 112 104/62 94 Room Air 11/03/21 07:40 36.5 112 22 110/68 94 Room Air 11/03/21 07:30 101 10 110/68 Room Air 11/03/21 07:00 99 18 94/69 Room Air 11/03/21 07:00 117 11/03/21 04:00 102 21 100/63 Room Air 11/03/21 04:00 97 Room Air 11/03/21 04:00 36.1 97 Room Air 11/03/21 01:00 101 11/03/21 00:00 100 Room Air 11/03/21 00:00 98 13 102/74 Room Air 11/03/21 00:00 36.5 95 Room Air 11/02/21 22:52 36.7 92 16 92/75 97 Room Air 11/02/21 21:00 103 13 111/60 100 Room Air 11/02/21 20:00 102 18 107/69 100 Room Air 11/02/21 20:00 100 Room Air 11/02/21 19:36 36.5 I & O 11/03/21 07:00 Intake Total 3851 ml Output Total 750 ml Balance 3101 ml Capillary Refill : Less Than 3 Seconds General Appearance: No Apparent Distress, Obese HEENT: PERRL/EOMI, Normal ENT Inspection Neck: Normal Inspection Respiratory: Chest Non Tender, No Accessory Muscle Use, No Respiratory Distress Cardiovascular: Irregularly Irregular, Tachycardia Gastrointestinal: non tender, soft, no organomegaly; No guarding Extremity: Calf Tenderness, Pedal Edema, Swelling Neurologic/Psychiatric: Alert, Oriented x3 Skin: Pallor, Other (brusing B/L LE from fall, B/L LE edema and erythema that is more pronounced on left side) Lymphatic: No Adenopathy Results Lab Laboratory Tests 11/03/21 04:40: White Blood Count 17.6H, Red Blood Count 2.27L, Hemoglobin 6.7#*L, Hematocrit 21L, Mean Corpuscular Volume 93, Mean Corpuscular Hemoglobin 30, Mean Corpuscular Hemoglobin Concent 32, Red Cell Distribution Width 17.9H, Platelet Count 213, Mean Platelet Volume 10.6, Immature Granulocyte % (Auto) 3, Neutrophils (%) (Auto) 85H, Lymphocytes (%) (Auto) 7L, Monocytes (%) (Auto) 5, Eosinophils (%) (Auto) 0, Basophils (%) (Auto) 0, Neutrophils # (Auto) 15.0H, Lymphocytes # (Auto) 1.2, Monocytes # (Auto) 0.8, Eosinophils # (Auto) 0.1, Basophils # (Auto) 0.0, Immature Granulocyte # (Auto) 0.5H, Prothrombin Time 18.7H, INR Comment 1.5H, Activated Partial Thromboplast Time 34, Sodium Level 141, Potassium Level 3.4L, Chloride Level 114H, Carbon Dioxide Level 16L, Anion Gap 11, Blood Urea Nitrogen 26H, Creatinine 0.90, Estimat Glomerular Filtration Rate 63, BUN/Creatinine Ratio 29, Glucose Level 83, Calcium Level 6.9L, Iron Level 15L, Total Iron Binding Capacity 167L, Unsaturated Iron Binding Capacity 152, Transferrin % Saturation 9L, Ferritin 93.0, Thyroid Stimulating Hormone (TSH) 0.74, Free Thyroxine 1.02, Total Triiodothyronine 28L 11/03/21 13:30: Troponin I < 0.028 11/03/21 17:00: Potassium Level 3.9, Troponin I < 0.028, Magnesium Level 2.4 Microbiology 11/02/21 Blood Culture - Preliminary, Resulted No growth 11/02/21 Urine Culture - Preliminary, Resulted Probable Klebsiella/Enterobact Assessment/Plan Assessment/Plan Assessment/Plan GI bleed 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 She can be on clears, npo after midnight. Colon prep today, use IS and is getting transfused PRBCs. Protonix bid GIO HADDAD DO November 03, 2021 19:05
[2021-11-03] MEDS ORDERED: FUROSEMIDE 40 MG/4 ML INJ (LASIX) IVP ONE (20:00)
[2021-11-03 21:42] LABS: HEMOGLOBIN 8.9 g/dL (11.5-16.0)
[2021-11-03] MEDS ORDERED: FUROSEMIDE 40 MG/4 ML INJ (LASIX) ONE (21:44)
[2021-11-04 03:58] LABS: HEMATOCRIT 24 % (35-52); MEAN CORPUSCULAR HEMOGLOBIN 31 pg (25-34); MEAN CORPUSCULAR HGB CONC 34 g/dL (32-36); MEAN CORPUSCULAR VOLUME 91 fL (80-99); MEAN PLATELET VOLUME 10.2 fL (9.0-12.2); PLATELET COUNT 179 10^3/uL (130-400); WHITE BLOOD COUNT 14.2 10^3/uL (4.3-11.0)
[2021-11-04 04:06] LABS: POTASSIUM 2.8 MMOL/L (3.6-5.0)
[2021-11-04 04:07] LABS: CALCIUM 6.8 MG/DL (8.5-10.1)
[2021-11-04 04:08] LABS: TOTAL PROTEIN 3.7 GM/DL (6.4-8.2)
[2021-11-04 04:10] LABS: BILIRUBIN,TOTAL 0.5 MG/DL (0.1-1.0); INR 1.3 (0.8-1.4); PROTHROMBIN TIME PATIENT 16.2 SEC (12.2-14.7)
[2021-11-04 04:12] LABS: CREATININE SERUM 0.84 MG/DL (0.60-1.30)
[2021-11-04] MEDS: KCL 20 MEQ TAB (K-DUR) PO SCH (05:43)
[2021-11-04] MEDS: POTASSIUM CL 10MEQ/50ML IVPB 50 ML IV SCH ×6 (05:43→09:58)
[2021-11-04] MEDS: MAGNESIUM 1 GM/100 ML IVPB 100 ML IV SCH (05:43)
[2021-11-04] MEDS ORDERED: POTASSIUM CL 10MEQ/50ML IVPB 50 ML IV ONE (05:55)
[2021-11-04] MEDS: metroNIDAZOLE 500MG/100ML IVPB 100 ML IV SCH ×3 (06:08→22:47)
[2021-11-04] MEDS: NS IV 1000 ML 1,000 ML IV SCH ×3 (06:08→20:45)
--- NOTE | 2021-11-04 07:37 | Progress Note ---
Subjective Subjective Date Seen by Provider: November 04, 2021 Time Seen by Provider: 07:15 Pt reports that she has been having multiple bowel movements from her bowel prep. She reports that her legs only hurt when they are touched and had a short episode last night where her right side of her chest hurt and she was having SOB, she was taken off oxygen after that time and states that she is doing well. Review of Systems General: No Chills, No Night Sweats, No Malaise; Other (feels cold ) HEENT: No Eye Pain; Other (no hoarseness ) Pulmonary: Dyspnea; No Cough Cardiovascular: Edema; No: Chest Pain, Palpitations Gastrointestinal: Diarrhea (bowel prep), Melena; No: Nausea, Vomiting, Abdominal Pain Genitourinary: No Dysuria, No Hematuria Musculoskeletal: neck pain, back pain, leg pain Neurological: No: Weakness, Numbness All Other Systems Reviewed All Other Systems Reviewed: Yes Objective Exam Vital Signs Vital Signs Date Time Temp Pulse Resp B/P (MAP) Pulse Ox O2 Delivery O2 Flow Rate FiO2 11/04/21 07:25 94 11/04/21 06:15 101 108/72 Room Air 11/04/21 05:30 89 105/67 Room Air 11/04/21 04:15 88 19 109/70 Room Air 11/04/21 04:00 97 Room Air 11/04/21 04:00 36.0 11/04/21 03:00 93 21 101/70 Room Air 11/04/21 02:00 94 14 113/71 Room Air 11/04/21 01:00 89 14 114/88 Room Air 11/04/21 01:00 96 11/04/21 00:00 106 17 112/77 Room Air 11/04/21 00:00 35.9 11/04/21 00:00 97 Room Air 11/03/21 23:00 90 22 126/97 Room Air 11/03/21 22:00 107 25 114/83 89 Room Air 11/03/21 21:00 107 22 118/81 Room Air 11/03/21 20:00 97 Room Air 11/03/21 20:00 102 21 113/87 Room Air 11/03/21 20:00 36.2 11/03/21 19:00 112 16 99/61 Room Air 11/03/21 19:00 112 11/03/21 18:00 98 19 80/55 Room Air 11/03/21 17:00 100 17 109/70 100 Room Air 11/03/21 16:45 92 15 100/69 100 Room Air 11/03/21 16:30 97 15 102/68 100 Room Air 11/03/21 16:15 95 17 110/66 100 Room Air 11/03/21 16:00 100 Room Air 11/03/21 16:00 100 23 108/72 100 Room Air 11/03/21 15:45 101 10 101/70 100 Room Air 11/03/21 15:32 36.6 11/03/21 15:30 92 24 104/66 100 Room Air 11/03/21 15:15 99 16 96 Room Air 11/03/21 15:00 94 24 125/81 100 Room Air 11/03/21 14:45 117 18 116/81 99 Room Air 11/03/21 14:30 100 18 100/71 100 Room Air 11/03/21 14:15 99 18 103/64 100 Room Air 11/03/21 14:00 97 18 107/66 100 Room Air 11/03/21 13:45 99 29 114/73 99 Room Air 11/03/21 13:30 97 11 111/74 100 Room Air 11/03/21 13:15 113 10 91/63 100 Room Air 11/03/21 13:00 105 15 105/74 100 Room Air 11/03/21 12:54 111 11/03/21 12:45 108 25 125/74 100 Room Air 11/03/21 12:30 129 19 105/72 98 Room Air 11/03/21 12:15 110 115/90 100 Room Air 11/03/21 12:00 87 18 113/84 100 Room Air 11/03/21 12:00 100 Nasal Cannula 3.00 11/03/21 11:45 98 15 120/75 100 Room Air 11/03/21 11:30 36.9 95 22 121/81 100 Room Air 11/03/21 11:15 117 21 122/82 100 Room Air 11/03/21 11:00 105 18 121/81 100 Room Air 11/03/21 10:36 36.6 94 18 118/86 100 Room Air 11/03/21 10:30 96 19 118/86 100 Room Air 11/03/21 10:00 105 11 121/87 99 Room Air 11/03/21 09:22 100 11/03/21 09:15 105 22 109/79 100 Room Air 11/03/21 09:00 112 7 100 Room Air 11/03/21 08:35 36.5 92 18 121/69 100 Room Air 11/03/21 08:30 36.6 101 18 118/72 100 Room Air 11/03/21 08:30 113 18 121/69 100 Room Air 11/03/21 08:25 36.6 114 18 113/78 100 Room Air 11/03/21 08:20 36.8 97 18 100/74 100 Room Air 11/03/21 08:00 100 Room Air 11/03/21 08:00 112 104/62 94 Room Air 11/03/21 07:40 36.5 112 22 110/68 94 Room Air I & O 11/04/21 06:59 Intake Total 5200 ml Output Total 2875 ml Balance 2325 ml General Appearance: No Apparent Distress, WD/WN, Obese Eyes: Bilateral Eye PERRL, Bilateral Eye EOMI HEENT: PERRL/EOMI, Normal ENT Inspection, Pharynx Normal Neck: Non Tender, Supple Respiratory: Chest Non Tender, Lungs Clear, Normal Breath Sounds, No Accessory Muscle Use Cardiovascular: Systolic Murmur, Irregularly Irregular Gastrointestinal: Normal Bowel Sounds, No Organomegaly, No Pulsatile Mass, Non Tender, Soft Rectal: Deferred Extremity: Calf Tenderness (OVER BRUISED SITE ON LEFT AND RIGHT), Pedal Edema (3+ PITTING), Swelling, Other (BRUISING OVER POSTERIOR THIGH ON RIGHT) Neurologic/Psychiatric: Alert, Oriented x3 Skin: Ecchymosis (MULTIPLE SITES, LEFT CALF, RIGHT CALF, RIGHT LATERAL AND POSTERIOR HIP) Lymphatic: No Adenopathy Results Lab Laboratory Tests 11/03/21 13:30: Troponin I < 0.028 11/03/21 17:00: Troponin I < 0.028, Potassium Level 3.9, Magnesium Level 2.4 11/03/21 21:31: Hemoglobin 8.9#L, Hematocrit 27L 11/04/21 00:30: Stool Occult Blood Immunoassay POSITIVEH 11/04/21 03:52: White Blood Count 14.2H, Red Blood Count 2.62L, Hemoglobin 8.0L, Hematocrit 24L, Mean Corpuscular Volume 91, Mean Corpuscular Hemoglobin 31, Mean Corpuscular Hemoglobin Concent 34, Red Cell Distribution Width 16.9H, Platelet Count 179, Mean Platelet Volume 10.2, Prothrombin Time 16.2H, INR Comment 1.3, Activated Partial Thromboplast Time 32, Sodium Level 139, Potassium Level 2.8L, Chloride L evel 111H, Carbon Dioxide Level 18L, Anion Gap 10, Blood Urea Nitrogen 23H, Creatinine 0.84, Estimat Glomerular Filtration Rate 69, BUN/Creatinine Ratio 27, Glucose Level 95, Calcium Level 6.8L, Corrected Calcium 8.4L, Total Bilirubin 0.5, Aspartate Amino Transf (AST/SGOT) 28, Alanine Aminotransferase (ALT/SGPT) 30, Alkaline Phosphatase 50, Total Protein 3.7L, Albumin 2.0L Microbiology 11/02/21 Blood Culture - Preliminary, Resulted No growth 11/02/21 Urine Culture - Preliminary, Resulted Probable Klebsiella/Enterobact Assessment/Plan Assessment/Plan Admission Dx SEPSIS SYNCOPAL EPISODE GASTROINTESTINAL BLEED URINARY TRACT INFECTION CHRONIC ANTICOAGULATION WITH SUPRATHERAPEUTIC INR ATRIAL FIBRILLATION ACUTE HYPOTENSION CHRONIC HYPERTENSION HYPOTHYROIDISM GENERALIZED WEAKNESS FALLING EPISODES HYPOKALEMIA LEUKOCYTOSIS OSTEOPOROSIS ESOPHAGEAL REFLUX CHRONIC COMPRESSION FRACTURE OF SPINE HYPERLIPIDEMIA Assessment and Plan SEPSIS SYNCOPAL EPISODE GASTROINTESTINAL BLEED URINARY TRACT INFECTION CHRONIC ANTICOAGULATION WITH SUPRATHERAPEUTIC INR ATRIAL FIBRILLATION ACUTE HYPOTENSION CHRONIC HYPERTENSION HYPOTHYROIDISM GENERALIZED WEAKNESS FALLING EPISODES HYPOKALEMIA LEUKOCYTOSIS OSTEOPOROSIS ESOPHAGEAL REFLUX CHRONIC COMPRESSION FRACTURE OF SPINE HYPERLIPIDEMIA SEPSIS WITH URINARY TRACT INFECTION - PT ON IV ROCEPHIN, MONITOR CULTURE REPORT - LACTIC ACID NOW NORMAL SYNCOPAL EPISODE DUE TO GASTROINTESTINAL BLEED AND SEVERE ANEMIA - PT IS RECEIVING BLOOD, iron studies indicate anemia of chronic disease will give IV iron -Was placed on clear liquid diet and NPO after midnight on 11/03 for a planned endoscopy on 11/04 by general surgery - WILL TRANSFUSE AGAIN IF NEEDED. CHRONIC ANTICOAGULATION WITH SUPRATHERAPEUTIC INR - INR normal, CANNOT RECEIVE DVT PROPHYLAXIS DUE TO GI BLEEDING ATRIAL FIBRILLATION - DEFER TO DR. HANNA ACUTE HYPOTENSION - DISCUSSED WITH DR. HANNA - HE WILL MANAGE. CHRONIC HYPERTENSION -DEFER TO DR. HANNA - HE MANAGES HER ATRIAL FIBRILLATION, WILL ADDRESS BLOOD PRESSURE MEDICATION PRIOR TO DC. HYPOTHYROIDISM - - MONITOR TSH, FREE T4, started on levothyroxine GENERALIZED WEAKNESS WITH FALLING EPISODES - REPLENISH HEMOGLOBIN, AND WILL START PHYSICAL THERAPY ONCE STABLE, AND WILL CONSIDER PLACEMENT AT ALF, FAMILY WILL NEED TO CONSIDER PT TO HAVE HOME HEALTH AND PAID CAREGIVERS IF THEY CHOOSE NOT TO HAVE HER GO TO THE ALF ON DISCHARGE. HYPOKALEMIA - REPLENISH PER ICU PROTOCOL. LEUKOCYTOSIS - REPEAT LABS IN MORNING, WBC decreasing trend OSTEOPOROSIS WITH CHRONIC COMPRESSION FRACTURE OF SPINE - HOLD BISPHOSPHONATE THERAPY FOR NOW ESOPHAGEAL REFLUX - PPI IV HYPERLIPIDEMIA - HOLD ANTILIPEMIC AGENTS DVT PROPHYLAXIS, CANNOT USE LOVENOX DUE TO GI BLEEDING, HOLDING COUMADIN DUE TO GI BLEEDING, CANNOT USE CALF SCD'S DUE TO CALF PAIN, WILL PLACE FOOT PUMPS ON PT IF TOLERATED. GI PROPHYLAXIS WTIH PPI THERAPY. Admission Dx UTI Anemia History of falls Leukocytosis Hypokalemia Hypercloremia Elevated BUN Elevated Creatinine Tachycardia Low calcium elevated Lactic Acid Atrial fibrillation MCC Anticoagulation use HTN Osteoporosis CAD Dizziness High Cholesterol GERD Osteopenia Thoracic compression fracture History of B/L knee replacement Clinical Quality Measures Admission Status Admission Dx UTI Anemia History of falls Leukocytosis Hypokalemia Hypercloremia Elevated BUN Elevated Creatinine Tachycardia Low calcium elevated Lactic Acid Atrial fibrillation MCC Anticoagulation use HTN Osteoporosis CAD Dizziness High Cholesterol GERD Osteopenia Thoracic compression fracture History of B/L knee replacement DVT/VTE Risk/Contraindication: Contraindications-Pharm: Other *list below* Contraindications-Mechi: Other *list below* Other: GI BLEEDING - CANNOT HAVE LOVENOX INJECTIONS OR COUMADIN Supervisory-Addendum Brief Verification & Attestation Participated in pt care: history, MDM, physical Personally performed: exam, history, MDM, supervision of care Care discussed with: Medical Student Procedures: n/a Results interpretation: Verified all documentation PT SEE IN THE ICU WITH STUDENT - INTERVIEWED AND EXAMINED INDEPENDENT OF STUDENT EVALUATION. STUDENTS NOTES REVIEWED AND AGREE WITH DOCUMENTATION - SEE MY ASSESSMENT AND PLAN BELOW. SEPSIS SYNCOPAL EPISODE GASTROINTESTINAL BLEED URINARY TRACT INFECTION CHRONIC ANTICOAGULATION WITH SUPRATHERAPEUTIC INR ATRIAL FIBRILLATION ACUTE HYPOTENSION CHRONIC HYPERTENSION HYPOTHYROIDISM GENERALIZED WEAKNESS FALLING EPISODES HYPOKALEMIA LEUKOCYTOSIS OSTEOPOROSIS ESOPHAGEAL REFLUX CHRONIC COMPRESSION FRACTURE OF SPINE HYPERLIPIDEMIA SEPSIS WITH URINARY TRACT INFECTION - PT ON IV ROCEPHIN, MONITOR CULTURE REPORT - SENSITIVITY NOT YET REPORTED - LACTIC ACID NOW NORMAL SYNCOPAL EPISODE DUE TO GASTROINTESTINAL BLEED AND SEVERE ANEMIA - PT IS RECEIVING BLOOD, CHECKED IRON PANEL - WILL GIVE INFED TODAY - WILL TRANSFUSE AGAIN IF NEEDED. CHRONIC ANTICOAGULATION WITH SUPRATHERAPEUTIC INR - INR NORMALIZED THIS MORNING, CANNOT RECEIVE DUE TO GI BLEEDING ATRIAL FIBRILLATION - DEFER TO DR. HANNA ACUTE HYPOTENSION WITH CHRONIC HYPERTENSION -DEFER TO DR. HANNA - HE MANAGES HER ATRIAL FIBRILLATION, WILL ADDRESS BLOOD PRESSURE MEDICATION PRIOR TO DC. HYPOTHYROIDISM - - MONITOR TSH, FREE T4 GENERALIZED WEAKNESS WITH FALLING EPISODES - REPLENISH HEMOGLOBIN, AND WILL START PHYSICAL THERAPY ONCE STABLE, AND WILL CONSIDER PLACEMENT AT ALF, FAMILY WILL NEED TO CONSIDER PT TO HAVE HOME HEALTH AND PAID CAREGIVERS IF THEY CHOOSE NOT TO HAVE HER GO TO THE ALF ON DISCHARGE. HYPOKALEMIA - REPLENISH PER ICU PROTOCOL. LEUKOCYTOSIS -IMPROVING - REPEAT LABS IN MORNING, SHOULD CONTINUE TO IMPROVE WITH ANTIBIOTICS. OSTEOPOROSIS WITH CHRONIC COMPRESSION FRACTURE OF SPINE - HOLDING BISPHOSPHONATE THERAPY FOR NOW - WILL HOLD FOR A FEW MONTHS POST HOSPITALIZATION DUE TO INCREASED RISK OF GI UPSET AND BLEEDING WITH INFLAMMATION OF GASTRIC LINING FROM ILLNESS AND THEREFORE INCREASED RISK FOR BLEEDING. ESOPHAGEAL REFLUX - PPI IV HYPERLIPIDEMIA - HOLDING STATIN THERAPY DVT PROPHYLAXIS, CANNOT USE LOVENOX DUE TO GI BLEEDING, HOLDING COUMADIN DUE TO GI BLEEDING, CANNOT USE CALF SCD'S DUE TO CALF PAIN, THEREFORE SCD FOOT PUMPS OR DERED GI PROPHYLAXIS WITH PPI THERAPY. PENNIE LITTLE November 04, 2021 07:37 COLETTE CROWLEY MD November 04, 2021 09:21
[2021-11-04] MEDS ORDERED: EPINEPHrine INJECTION 1 MG/ML AMP IM PRN (08:15)
[2021-11-04] MEDS ORDERED: NS IV 500 ML 500 ML IV SCH (08:15)
[2021-11-04] MEDS ORDERED: IRON DEXTRAN INJECTION 1,000 MG in NS (IVPB) 250 ML IV ONE (08:15)
[2021-11-04] MEDS ORDERED: RT-ALBUTEROL SULF 2.5 MG/3 ML PRE-MIX VIAL IH PRN (08:15)
[2021-11-04] MEDS ORDERED: diphenhydrAMINE 50 MG/ML INJ (BENADRYL) IV PRN (08:15)
[2021-11-04] MEDS ORDERED: IRON DEXTRAN INJECTION 25 MG in NS (IVPB) 5.75 ML IV ONE (08:15)
[2021-11-04] MEDS ORDERED: HYDROCORTISONE 100 MG/2 ML (Solu-CORTEF) VIAL IV PRN (08:15)
--- NOTE | 2021-11-04 08:22 | Cardiology Progress Note ---
Subjective Date Seen by Provider: November 04, 2021 Time Seen by Provider: 08:19 Subjective/Events-last exam Patient was seen at bedside laying down comfortably Has been complaining of recurrent chest pain, right-sided, reproducible by pressing on her right shoulder Review of Systems General: No Chills, No Night Sweats, No Fatigue, No Malaise, No Appetite, No Other HEENT: No Head Aches, No Visual Changes, No Eye Pain, No Ear Pain, No Dysphasia, No Sinus Congestion, No Post Nasal Drip, No Sore Throat, No Other Pulmonary: No Dyspnea, No Cough, No Pleuritic Chest Pain, No Other Cardiovascular: Chest Pain; No: Palpitations, Orthopnea, Paroxysmal Noc. Dyspnea, Edema, Lt Headedness, Other Focused Exam Lactate Level 11/02/21 11:05: Lactic Acid Level 2.19*H 11/02/21 16:08: Lactic Acid Level 1.61 Objective-Cardiology Exam Last Set of Vital Signs Vital Signs 11/03/21 11/04/21 11/04/21 11/04/21 11/04/21 11/04/21 12:00 04:00 04:15 06:15 07:25 07:44 Temp 36.0 Pulse 94 Resp 19 B/P (MAP) 108/72 Pulse Ox 97 O2 Delivery Room Air O2 Flow Rate 3.00 I&O Intake and Output 11/04/21 00:00 Intake Total 5850 ml Output Total 1000 ml Balance 4850 ml Intake Oral 3600 ml IV Total 2150 ml Other 100 ml Output Urine Total 1000 ml # Bowel Movements 2 General: Alert, Oriented X3, Cooperative HEENT: Atraumatic, PERRLA Neck: Supple, No JVD, No Thyromegaly Lungs: Clear to Auscultation, Normal Air Movement Heart: Normal S1, Normal S2, No Murmurs, Other (Irregular) Abdomen: Normal Bowel Sounds, Soft, No Tenderness, No Hepatosplenomegaly, No Masses Extremities: No Clubbing, No Cyanosis, No Edema, Normal Pulses, No Tenderness/Swelling Skin: No Rashes, No Breakdown, No Significant Lesion Neuro: Normal Gait, Normal Speech, Strength at 5/5 X4 Ext, Normal Tone, Sensation Intact Psych/Mental Status: Mental Status NL, Mood NL Results Lab Laboratory Tests 11/03/21 17:00 11/03/21 21:31 11/04/21 03:52 A/P-Cardiology Admission Diagnosis GI bleed Anemia Urinary tract infection Atrial fibrillation Assessment/Plan Anemia, lower GI bleed, patient had multiple blood transfusion, continue to monitor H&H. Bright red blood per rectum, reporting bleeding for the past week. She is scheduled for upper and lower endoscopy with Dr. Hernandez. Chest pain, nonspecific etiology, reproducible on the right side of her chest by pressing on her right shoulder, patient had extensive cardiac history. Cannot tolerate anticoagulation at this time, conservative management is recommended. Continue to monitor Atrial fibrillation with rapid ventricular response, history of permanent atrial fibrillation. Receiving blood transfusion and IV fluids, continue on Cardizem, will switch her to oral medication once she can tolerate oral intake [id number] score 5, maintained on Coumadin as an outpatient, supratherapeutic INR. Coumadin is on hold at this time. We discussed the possibility of using Xarelto after stabilizing her. Urinary tract infection, managed by primary care physician. Dizziness, multiple falls, no full syncope. Patient has history of generalized weakness and multiple falls in the past. History of dysphagia, heartburn, followed and managed by primary care physician Coronary artery disease- Cardiac catheterization done October 09, 2015 revealed 70 percent stenosis in the mid LAD. Successful stent deployment using 2.5 x 24 mm Promus Premier drug- eluting stent. Otherwise mild disease in the circumflex artery and RCA. Nonobstructive disease. Cardiac catheterization was done in September 2016 showing patent stent in the LAD, mild disease at the distal LAD and distal circumflex artery nonobstructive disease, Cardiac catheterization done in October 2018 after having an abnormal stress test which showed patent stent in the mid LAD, calcified LAD system tapering down into a very small artery distally with [id number] disease nonobstructive disease, calcified right coronary system, dominant artery with [id number] disease nonobstructive disease. Normal left ventricular size with ejection fraction 60 percent. Conservative management, no intervention is needed. Continue to monitor Congestive heart failure, resolved, last echocardiogram done on November 03, 2021 showing normal left ventricular size with ejection fraction of 55 to 60%. Biatrial enlargement, mild to moderate mitral regurgitation, PA pressure 30 mmHg. Continue to monitor Chronic peripheral edema. Unable to tolerate compression socks Slightly prominent aortic arch with hypertensive changes, blood pressure is under good control, continue on current medications and monitor COPD/obstructive sleep apnea, using CPAP. Hypothyroidism, followed and managed by Dr. Pisano. Hypertension, currently borderline hypotensive. Continue to monitor blood pres sure Hyperlipidemia, monitor lipids Pulmonary hypertension, PA pressure 35-40 mmHg per echo done on September 09, 2019. 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 Reid Osteopenia, followed by primary care physician ANAHY HANNA MD November 04, 2021 08:22
[2021-11-04] MEDS: LEVOTHYROXINE 50 MCG (LEVOTHROID) TAB PO SCH (08:59)
[2021-11-04] MEDS: cefTRIAXone 1 GM PRE-MIX 50 ML IV SCH (08:59)
[2021-11-04] MEDS ORDERED: NS IV 1000 ML 1,000 ML ONE (09:06)
--- NOTE | 2021-11-04 09:54 | Physical Therapy Progress Note ---
Therapy Progress Note Patient prepping for EGD and colonoscopy. No PT on this date. Will resume tomorrow. JOSEPH GLASS PT November 04, 2021 09:54
--- NOTE | 2021-11-04 11:33 | Tele-ICU Progress Note ---
Subjective Date Seen by a Provider: November 04, 2021 Time Seen by a Provider: 11:33 Subjective/Events-last exam (Tele-ICU Physician , Progress Note ) Available chrt/ vitals / labs / Images reviewed Video assessment done using teleICU camera, rest of exam as per RN Discussed with RN , EXAM PER RN Events overnight : Afebrile FiO2 - ra I/O = Drips: ns 150 Pressors: , hemodynamically stable Consultants: Hospital course: -: +Sev Sepsis 81 y/o F - Trauma/Fall - UTI - LGI Bleed. 11/03 ECHO - EF 55% RVSP 30 A/P GIB/ ABLA in face of AC ( coumadine - s/p transfusion 1 u prbc- HB stable -reversed AC - scope ploanned for 11/04 - PPI bid iv A fib RVR - on cadizem gtt ( NPO ) - Ac reversed , INR 1.3 - to resume when ok with Sx and cards - 11/03 ECHO - EF 55% RVSP 30 CP 11/03 ( responded to NTG , but also reproducible on the right side of her chest by pressing as per notes) - as per cards UTI with ? Klebs - on cefepime + metronidazole, final cx pending COPD - stable RIVER - CPAP at night - not using at home Pulm HTN due to above - follow chronic edema reported - diuretics on hold , gentle hydration breast cancer, stage I right breast - status post lumpectomy and sentinel lymph node biopsy in December 2004, received radiation therapy and hormonal therapy replace lytes Lines : periph (Central Line Necessity Reviewed) Potts: + OG: Nutrition: npo Analgesia: Anxiety/ delirium VTE Prophylaxis: scd Stress Ulcer Prophylaxis: Plans in collaboration with bedside consultants and IM MDs. Discussed with RN to reach out if any questions or concerns A total of 33 minutes of critical care time was devoted to this patient today, required to treat and/or prevent further deterioration of critical care condition ( as above) . Sepsis Event Evaluation Height, Weight, BMI Height: 5'7.00" Weight: 209lbs. 0.0oz. 94.258754ow; 106.57 BMI Method:Stated Focused Exam Lactate Level 11/02/21 11:05: Lactic Acid Level 2.19*H 11/02/21 16:08: Lactic Acid Level 1.61 Exam Exam Patient acknowledged, consented, and participated in this virtual visit which was conducted using real time audio/video Vital Signs Date Time Temp Pulse Resp B/P (MAP) Pulse Ox O2 Delivery O2 Flow Rate FiO2 11/04/21 11:00 95 110/79 100 Room Air 11/04/21 10:00 87 97/66 100 Room Air 11/04/21 09:00 79 89/58 100 Room Air 11/04/21 08:00 93 99/74 Room Air 11/04/21 08:00 35.8 95 18 97/70 97 Room Air 11/04/21 08:00 97 Room Air 11/04/21 07:44 Room Air 11/04/21 07:25 94 11/04/21 07:00 90 98/72 Room Air 11/04/21 06:15 101 108/72 Room Air 11/04/21 05:30 89 105/67 Room Air 11/04/21 04:15 88 19 109/70 Room Air 11/04/21 04:00 97 Room Air 11/04/21 04:00 36.0 11/04/21 03:00 93 21 101/70 Room Air 11/04/21 02:00 94 14 113/71 Room Air 11/04/21 01:00 89 14 114/88 Room Air 11/04/21 01:00 96 11/04/21 00:00 106 17 112/77 Room Air 11/04/21 00:00 35.9 11/04/21 00:00 97 Room Air 11/03/21 23:00 90 22 126/97 Room Air 11/03/21 22:00 107 25 114/83 89 Room Air 11/03/21 21:00 107 22 118/81 Room Air 11/03/21 20:00 97 Room Air 11/03/21 20:00 102 21 113/87 Room Air 11/03/21 20:00 36.2 11/03/21 19:00 112 16 99/61 Room Air 11/03/21 19:00 112 11/03/21 18:00 98 19 80/55 Room Air 11/03/21 17:00 100 17 109/70 100 Room Air 11/03/21 16:45 92 15 100/69 100 Room Air 11/03/21 16:30 97 15 102/68 100 Room Air 11/03/21 16:15 95 17 110/66 100 Room Air 11/03/21 16:00 100 Room Air 11/03/21 16:00 100 23 108/72 100 Room Air 11/03/21 15:45 101 10 101/70 100 Room Air 11/03/21 15:32 36.6 11/03/21 15:30 92 24 104/66 100 Room Air 11/03/21 15:15 99 16 96 Room Air 11/03/21 15:00 94 24 125/81 100 Room Air 11/03/21 14:45 117 18 116/81 99 Room Air 11/03/21 14:30 100 18 100/71 100 Room Air 11/03/21 14:15 99 18 103/64 100 Room Air 11/03/21 14:00 97 18 107/66 100 Room Air 11/03/21 13:45 99 29 114/73 99 Room Air 11/03/21 13:30 97 11 111/74 100 Room Air 11/03/21 13:15 113 10 91/63 100 Room Air 11/03/21 13:00 105 15 105/74 100 Room Air 11/03/21 12:54 111 11/03/21 12:45 108 25 125/74 100 Room Air 11/03/21 12:30 129 19 105/72 98 Room Air 11/03/21 12:15 110 115/90 100 Room Air 11/03/21 12:00 87 18 113/84 100 Room Air 11/03/21 12:00 100 Nasal Cannula 3.00 11/03/21 11:45 98 15 120/75 100 Room Air I & O 11/04/21 07:00 Intake Total 5200 ml Output Total 2875 ml Balance 2325 ml Height & Weight Height: 5'7.00" Weight: 209lbs. 0.0oz. 94.946443mo; 106.57 BMI Method:Stated General Appearance: No Apparent Distress, WD/WN, Obese HEENT: PERRL/EOMI, Normal ENT Inspection, Pharynx Normal Neck: Non Tender, Supple Respiratory: Chest Non Tender, Lungs Clear, Normal Breath Sounds, No Accessory Muscle Use Cardiovascular: Systolic Murmur, Irregularly Irregular Capillary Refill: Less Than 3 Seconds Gastrointestinal: non tender, soft, no organomegaly; No guarding Extremity: Calf Tenderness (OVER BRUISED SITE ON LEFT AND RIGHT), Pedal Edema (3+ PITTING), Swelling, Other (BRUISING OVER POSTERIOR THIGH ON RIGHT) Neurologic/Psychiatric: Alert, Oriented x3 Skin: Ecchymosis (MULTIPLE SITES, LEFT CALF, RIGHT CALF, RIGHT LATERAL AND POSTERIOR HIP) Lymphatic: No Adenopathy Results Lab Laboratory Tests 11/02/21 16:08 11/03/21 04:40 11/03/21 17:00 11/03/21 21:31 11/04/21 03:52 Assessment/Plan Assessment/Plan ` DOROTHY BAUGH MD November 04, 2021 11:33
--- NOTE | 2021-11-04 11:53 | Progress Note - Surgery ---
Subjective Date Seen by a Provider: November 04, 2021 Time Seen by a Provider: 11:49 Subjective/Events-last exam Patient anemic. No new complaints. Afib. Not had much of a bowel movement she states. Denies n/v fever sweats chills shortness of breath or chest pain at this time. For scopes today. Focused Exam Lactate Level 11/02/21 11:05: Lactic Acid Level 2.19*H 11/02/21 16:08: Lactic Acid Level 1.61 Objective Exam Vital Signs Date Time Temp Pulse Resp B/P (MAP) Pulse Ox O2 Delivery O2 Flow Rate FiO2 11/04/21 11:36 36.0 11/04/21 11:00 95 110/79 100 Room Air 11/04/21 10:00 87 97/66 100 Room Air 11/04/21 09:00 79 89/58 100 Room Air 11/04/21 08:00 93 99/74 Room Air 11/04/21 08:00 35.8 95 18 97/70 97 Room Air 11/04/21 08:00 97 Room Air 11/04/21 07:44 Room Air 11/04/21 07:25 94 11/04/21 07:00 90 98/72 Room Air 11/04/21 06:15 101 108/72 Room Air 11/04/21 05:30 89 105/67 Room Air 11/04/21 04:15 88 19 109/70 Room Air 11/04/21 04:00 97 Room Air 11/04/21 04:00 36.0 11/04/21 03:00 93 21 101/70 Room Air 11/04/21 02:00 94 14 113/71 Room Air 11/04/21 01:00 89 14 114/88 Room Air 11/04/21 01:00 96 11/04/21 00:00 106 17 112/77 Room Air 11/04/21 00:00 35.9 11/04/21 00:00 97 Room Air 11/03/21 23:00 90 22 126/97 Room Air 11/03/21 22:00 107 25 114/83 89 Room Air 11/03/21 21:00 107 22 118/81 Room Air 11/03/21 20:00 97 Room Air 11/03/21 20:00 102 21 113/87 Room Air 11/03/21 20:00 36.2 11/03/21 19:00 112 16 99/61 Room Air 11/03/21 19:00 112 11/03/21 18:00 98 19 80/55 Room Air 11/03/21 17:00 100 17 109/70 100 Room Air 11/03/21 16:45 92 15 100/69 100 Room Air 11/03/21 16:30 97 15 102/68 100 Room Air 11/03/21 16:15 95 17 110/66 100 Room Air 11/03/21 16:00 100 Room Air 11/03/21 16:00 100 23 108/72 100 Room Air 11/03/21 15:45 101 10 101/70 100 Room Air 11/03/21 15:32 36.6 11/03/21 15:30 92 24 104/66 100 Room Air 11/03/21 15:15 99 16 96 Room Air 11/03/21 15:00 94 24 125/81 100 Room Air 11/03/21 14:45 117 18 116/81 99 Room Air 11/03/21 14:30 100 18 100/71 100 Room Air 11/03/21 14:15 99 18 103/64 100 Room Air 11/03/21 14:00 97 18 107/66 100 Room Air 11/03/21 13:45 99 29 114/73 99 Room Air 11/03/21 13:30 97 11 111/74 100 Room Air 11/03/21 13:15 113 10 91/63 100 Room Air 11/03/21 13:00 105 15 105/74 100 Room Air 11/03/21 12:54 111 11/03/21 12:45 108 25 125/74 100 Room Air 11/03/21 12:30 129 19 105/72 98 Room Air 11/03/21 12:15 110 115/90 100 Room Air 11/03/21 12:00 87 18 113/84 100 Room Air 11/03/21 12:00 100 Nasal Cannula 3.00 I & O 11/04/21 07:00 Intake Total 5200 ml Output Total 2875 ml Balance 2325 ml Capillary Refill : Less Than 3 Seconds General Appearance: No Apparent Distress, WD/WN, Obese HEENT: PERRL/EOMI, Normal ENT Inspection, Pharynx Normal Neck: Non Tender, Supple Respiratory: Chest Non Tender, Lungs Clear, Normal Breath Sounds, No Accessory Muscle Use Cardiovascular: No JVD, Irregularly Irregular Gastrointestinal: non tender, soft, no organomegaly; No guarding Extremity: Pedal Edema (3+ PITTING), Swelling, Other (BRUISING OVER POSTERIOR THIGH ON RIGHT) Neurologic/Psychiatric: Alert, Oriented x3 Skin: Warm/Dry, Ecchymosis (MULTIPLE SITES, LEFT CALF, RIGHT CALF, RIGHT LATERAL AND POSTERIOR HIP) Lymphatic: No Adenopathy Results Lab Laboratory Tests 11/03/21 13:30: Troponin I < 0.028 11/03/21 17:00: Troponin I < 0.028, Potassium Level 3.9, Magnesium Level 2.4 11/03/21 21:31: Hemoglobin 8.9#L, Hematocrit 27L 11/04/21 00:30: Stool Occult Blood Immunoassay POSITIVEH 11/04/21 03:52: White Blood Count 14.2H, Red Blood Count 2.62L, Hemoglobin 8.0L, Hematocrit 24L, Mean Corpuscular Volume 91, Mean Corpuscular Hemoglobin 31, Mean Corpuscular Hemoglobin Concent 34, Red Cell Distribution Width 16.9H, Platelet Count 179, Mean Platelet Volume 10.2, Prothrombin Time 16.2H, INR Comment 1.3, Activated Partial Thromboplast Time 32, Sodium Level 139, Potassium Level 2.8L, Chloride Level 111H, Carbon Dioxide Level 18L, Anion Gap 10, Blood Urea Nitrogen 23H, Creatinine 0.84, Estimat Glomerular Filtration Rate 69, BUN/Creatinine Ratio 27, Glucose Level 95, Calcium Level 6.8L, Corrected Calcium 8.4L, Total Bilirubin 0.5, Aspartate Amino Transf (AST/SGOT) 28, Alanine Aminotransferase (ALT/SGPT) 30, Alkaline Phosphatase 50, Total Protein 3.7L, Albumin 2.0L Microbiology 11/02/21 Blood Culture - Preliminary, Resulted No growth 11/02/21 Urine Culture - Preliminary, Resulted Probable Klebsiella/Enterobact Assessment/Plan Assessment/Plan Assessment/Plan GI bleed anemia alf anticoagulation warfarin on hold inr normal on protonix npo patient understands risks and benefits of egd/colonoscopy all other indicated procedures to endo today. Clinical Quality Measures DVT/VTE Risk/Contraindication: Contraindications-Pharm: Other *list below* Contraindications-Mechi: Other *list below* Other: GI BLEEDING - CANNOT HAVE LOVENOX INJECTIONS OR COUMADIN GIO HADDAD DO November 04, 2021 11:53
[2021-11-04] MEDS ORDERED: PROPOFOL INJECTION 50 ML IV ONE (11:55)
[2021-11-04] MEDS ORDERED: LACTATED RINGERS 1,000 ML IV STA (11:55)
[2021-11-04] MEDS ORDERED: HURRICAINE EXT TUBE (BENZOCAINE) XX PRN (12:00)
[2021-11-04] MEDS ORDERED: LACTATED RINGERS 1,000 ML IV ONE (12:18)
[2021-11-04 12:45] VITALS: BP 90/69
[2021-11-04 12:50] VITALS: BP 91/70
--- NOTE | 2021-11-04 12:59 | Anesthesia-General Post-Op ---
MAC Patient Condition Mental Status/LOC: Same as Preop Cardiovascular: Satisfactory Nausea/Vomiting: Absent Respiratory: Satisfactory Pain: Controlled Complications: Absent Post Op Complications Complications None Follow Up Care/Instructions Patient Instructions None needed. Anesthesiology Discharge Order Discharge Order Patient is doing well, no complaints, stable vital signs, no apparent adverse anesthesia problems. CHARLOTTE THOMPSON DO November 04, 2021 12:59
--- NOTE | 2021-11-04 13:01 | Progress Note-Post Operative ---
Post-Operative Progess Note Surgeon (s)/Engineer Rf Deployment (s) Surgeon GIO HADDAD DO Engineer Rf Deployment: na Pre-Operative Diagnosis gi bleed, anemia Post-Operative Diagnosis healing duodenal ulcer, cecal polyp Procedure & Operative Findings Date of Procedure 11/04/21 Procedure Performed/Findings egd colonoscopy c snare polypectomy Anesthesia Type per mda Estimated Blood Loss Estimated blood loss (mL): none Specimens/Packing Specimens Removed cecal polyp GIO HADDAD DO November 04, 2021 13:01
--- NOTE | 2021-11-04 13:09 | Occ Therapy Progress Note ---
Therapy Progress Note OT orders received and chart reviewed. Patient having EGD and colonoscopy today. OT evaluation will be attempted tomorrow. JORDI SNEED OT November 04, 2021 13:09
--- NOTE | 2021-11-04 20:03 | OPERATIVE REPORT ---
DATE OF SERVICE: 11/04/2021 PREOPERATIVE DIAGNOSES: Gastrointestinal bleed, anemia. POSTOPERATIVE DIAGNOSES: Healing duodenal ulcer, cecal polyp, diverticulosis. PROCEDURE: EGD with colonoscopy with snare polypectomy. SURGEON: Gio Hernandez DO ANESTHESIA: Per MDA. ESTIMATED BLOOD LOSS: None. COMPLICATIONS: None. INDICATIONS: The patient is an 81-year-old female who was admitted with diagnosis of GI bleed and anemia. She understands risks and benefits of procedure and wishes to proceed. Consent was signed in the chart. DESCRIPTION OF PROCEDURE: The patient was taken to the endoscopy suite, placed in left lateral recumbent position. Timeout was performed. Scope was inserted in mouth, down the esophagus, stomach and into the duodenum without difficulty. The second portion of the duodenum, a healing ulcer apparent, scabbed over, no active bleeding. Scope was then slowly retracted back until the stomach where it was further insufflated. No polyps, masses or ulcerations. No active bleeding. Scope was retroflexed noting no other pathology. Scope was returned to its normal position, slowly withdrawn to distal esophagus, which had normal appearance. Scope was slowly retracted back until completely removed. Digital rectal exam was performed. No palpable polyps, masses or ulcerations. Scope was inserted in the rectum and advanced all the way to cecum with minimal difficulty. Prep was adequate with irrigation and suction. Scope was slowly retracted back in the cecum, a larger polyp was present, which snare polypectomy was performed. This had to be transected multiple times in order to get to suction up. This was obtained. Also noting from the ileocecal valve, bloody output from the ileocecal valve. Scope was then slowly retracted back. There were no polyps, masses or ulcerations within the ascending, transverse, descending and sigmoid colon. Significant amount of diverticulosis through the sigmoid colon, but also has ran diffuse . Once in the rectum, scope was retroflexed noting no other pathology. Scope was returned to its normal position, slowly withdrawn until completely removed. The patient tolerated the procedure well without any complications. She was taken to recovery room in stable condition. RECOMMENDATIONS: Due to larger polyp if benefits outweigh the risk, we would eventually need repeat colonoscopy. We would continue on proton pump inhibitors. If has any return of bleeding, would repeat EGD. The patient will need further monitoring in the ICU and further recommendations pending hospital course. Job ID: [id number] DocumentID: [id number] Dictated Date: 11/04/2021 13:24:32 Plate Maker Zinc Date: 11/04/2021 20:02:13 Dictated By: GIO HERNANDEZ DO
[2021-11-05 04:47] LABS: HEMATOCRIT 23 % (35-52); HEMOGLOBIN 7.6 g/dL (11.5-16.0); MEAN CORPUSCULAR HEMOGLOBIN 31 pg (25-34); MEAN CORPUSCULAR HGB CONC 33 g/dL (32-36); MEAN CORPUSCULAR VOLUME 93 fL (80-99); MEAN PLATELET VOLUME 10.6 fL (9.0-12.2); PLATELET COUNT 152 10^3/uL (130-400); WHITE BLOOD COUNT 11.9 10^3/uL (4.3-11.0)
[2021-11-05 05:10] LABS: CALCIUM 7.4 MG/DL (8.5-10.1)
[2021-11-05 05:14] LABS: CREATININE SERUM 0.75 MG/DL (0.60-1.30)
[2021-11-05] MEDS: LEVOTHYROXINE 50 MCG (LEVOTHROID) TAB PO SCH (06:11)
[2021-11-05] MEDS: KCL 20 MEQ TAB (K-DUR) PO SCH (06:11)
[2021-11-05] MEDS: metroNIDAZOLE 500MG/100ML IVPB 100 ML IV SCH ×3 (06:12→21:12)
[2021-11-05] MEDS: POTASSIUM CL 10MEQ/50ML IVPB 50 ML IV SCH (06:17)
[2021-11-05] MEDS: MAGNESIUM 1 GM/100 ML IVPB 100 ML IV SCH (06:19)
[2021-11-05] MEDS ORDERED: FUROSEMIDE 40 MG/4 ML INJ (LASIX) IVP ONE (07:45)
--- NOTE | 2021-11-05 07:52 | Progress Note ---
Subjective Subjective Date Seen by Provider: November 05, 2021 Time Seen by Provider: 07:30 Pt reports that she only had the right sided chest pain that is described as fulness one time two nights ago. She is doing well after her EGD and colonoscopy. Review of Systems General: No Chills, No Night Sweats, No Malaise HEENT: No Eye Pain; Other (no hoarseness ) Pulmonary: Dyspnea; No Cough Cardiovascular: Edema; No: Chest Pain, Palpitations Gastrointestinal: No: Nausea, Vomiting, Abdominal Pain, Melena Genitourinary: No Dysuria, No Hematuria Musculoskeletal: neck pain, back pain, leg pain Neurological: No: Weakness, Numbness All Other Systems Reviewed All Other Systems Reviewed: Yes Objective Exam Vital Signs Vital Signs Date Time Temp Pulse Resp B/P (MAP) Pulse Ox O2 Delivery O2 Flow Rate FiO2 11/05/21 07:00 95 11/05/21 06:00 95 16 100/69 95 Room Air 11/05/21 05:00 84 16 97/68 96 Room Air 11/05/21 04:00 85 12 106/60 95 Room Air 11/05/21 04:00 94 Room Air 11/05/21 03:00 76 15 101/69 97 Room Air 11/05/21 02:00 73 13 96/71 95 Room Air 11/05/21 01:00 86 16 99/71 97 Room Air 11/05/21 00:46 85 11/05/21 00:00 96 Room Air 11/05/21 00:00 93 22 108/85 95 Room Air 11/04/21 23:00 82 13 94/62 95 Room Air 11/04/21 22:00 92 14 100/70 97 Room Air 11/04/21 21:00 88 17 101/73 98 Room Air 11/04/21 20:00 95 Room Air 11/04/21 20:00 86 13 103/80 96 Room Air 11/04/21 19:00 89 11/04/21 19:00 101 18 112/80 99 Room Air 11/04/21 18:11 36.1 11/04/21 18:00 100 36 96/67 98 Room Air 11/04/21 17:00 95 16 108/76 98 Room Air 11/04/21 16:00 97 Room Air 11/04/21 16:00 91 13 103/88 98 Room Air 11/04/21 15:00 93 18 119/69 99 Room Air 11/04/21 14:00 105 28 112/80 90 Room Air 11/04/21 13:18 108 11/04/21 13:15 103 20 104/88 93 Room Air 11/04/21 13:00 96/73 11/04/21 12:50 91 20 97 Room Air 11/04/21 12:45 95 20 96 OxyMask 11/04/21 11:36 36.0 11/04/21 11:00 95 110/79 100 Room Air 11/04/21 10:00 87 97/66 100 Room Air 11/04/21 09:00 79 89/58 100 Room Air 11/04/21 08:00 93 99/74 Room Air 11/04/21 08:00 35.8 95 18 97/70 97 Room Air 11/04/21 08:00 97 Room Air I & O 11/05/21 07:00 Intake Total 1666.25 ml Output Total 1100 ml Balance 566.25 ml General Appearance: No Apparent Distress, WD/WN, Obese Eyes: Bilateral Eye PERRL, Bilateral Eye EOMI HEENT: PERRL/EOMI, TMs Normal, Normal ENT Inspection, Pharynx Normal, Other (TENDERNESS TO BACK OF HEAD) Neck: Other (IN CERVICAL COLLAR ON ARRIVAL) Respiratory: Normal Breath Sounds, No Accessory Muscle Use, No Respiratory Distress Cardiovascular: Regular Rate, Rhythm, No Murmur Gastrointestinal: Normal Bowel Sounds, Soft, Tenderness (DIFFUSE LOWER ABDOMINAL TENDERNESS) Rectal: Deferred Back: Normal Inspection, No CVA Tenderness, No Vertebral Tenderness Extremity: Normal Capillary Refill, Pedal Edema (TRACE BILATERALLY), Other (DIFFUSE RIGHT LEG TENDERNESS. NO DEFORMITY. DISTAL MOTOR/SENSORY/VASCULAR INTACT) Neurologic/Psychiatric: Alert, Oriented x3, No Motor/Sensory Deficits, Normal Mood/Affect, blood bank assistant II-XII Norm as Tested Skin: Normal Color, Warm/Dry Lymphatic: No Adenopathy Results Lab Laboratory Tests 11/05/21 04:30: White Blood Count 11.9H, Red Blood Count 2.48L, Hemoglobin 7.6L, Hematocrit 23L, Mean Corpuscular Volume 93, Mean Corpuscular Hemoglobin 31, Mean Corpuscular Hemoglobin Concent 33, Red Cell Distribution Width 17.4H, Platelet Count 152, Mean Platelet Volume 10.6, Sodium Level 141, Potassium Level 3.0L, Chloride Level 114H, Carbon Dioxide Level 19L, Anion Gap 8, Blood Urea Nitrogen 15, Creatinine 0.75, Estimat Glomerular Filtration Rate 79, BUN/Creatinine Ratio 20, Glucose Level 85, Calcium Level 7.4L, Magnesium Level 2.0 Microbiology 11/02/21 Blood Culture - Preliminary, Resulted No growth 11/02/21 Urine Culture - Final, Complete Klebsiella pneumoniae Assessment/Plan Assessment/Plan Admission Dx SEPSIS SYNCOPAL EPISODE GASTROINTESTINAL BLEED URINARY TRACT INFECTION CHRONIC ANTICOAGULATION WITH SUPRATHERAPEUTIC INR ATRIAL FIBRILLATION ACUTE HYPOTENSION CHRONIC HYPERTENSION HYPOTHYROIDISM GENERALIZED WEAKNESS FALLING EPISODES HYPOKALEMIA LEUKOCYTOSIS OSTEOPOROSIS ESOPHAGEAL REFLUX CHRONIC COMPRESSION FRACTURE OF SPINE HYPERLIPIDEMIA Assessment and Plan SEPSIS SYNCOPAL EPISODE GASTROINTESTINAL BLEED URINARY TRACT INFECTION CHRONIC ANTICOAGULATION WITH SUPRATHERAPEUTIC INR ATRIAL FIBRILLATION ACUTE HYPOTENSION CHRONIC HYPERTENSION HYPOTHYROIDISM GENERALIZED WEAKNESS FALLING EPISODES HYPOKALEMIA LEUKOCYTOSIS OSTEOPOROSIS ESOPHAGEAL REFLUX CHRONIC COMPRESSION FRACTURE OF SPINE HYPERLIPIDEMIA SEPSIS WITH URINARY TRACT INFECTION - PT ON IV ROCEPHIN, culture shows Klebsiella sensitive to Rocephin will continue current antibiotic treatment - LACTIC ACID NOW NORMAL SYNCOPAL EPISODE DUE TO GASTROINTESTINAL BLEED AND SEVERE ANEMIA - PT IS RECEIVING BLOOD, iron studies indicate anemia of chronic disease will give IV iron -Was placed on clear liquid diet and NPO after midnight on 11/03 for a planned endoscopy on 11/04 by general surgery - WILL TRANSFUSE AGAIN IF NEEDED. -EGD showed a healed duodenal ulcer on 11/04, will continue PPI and slowly advance her diet, monitor patient in the hospital CHRONIC ANTICOAGULATION WITH SUPRATHERAPEUTIC INR - INR normal, CANNOT RECEIVE DVT PROPHYLAXIS DUE TO GI BLEEDING ATRIAL FIBRILLATION - DEFER TO DR. HANNA ACUTE HYPOTENSION - DISCUSSED WITH DR. HANNA - HE WILL MANAGE. CHRONIC HYPERTENSION -DEFER TO DR. HANNA - HE MANAGES HER ATRIAL FIBRILLATION, WILL ADDRESS BLOOD PRESSURE MEDICATION PRIOR TO DC. HYPOTHYROIDISM - - MONITOR TSH, FREE T4, started on levothyroxine GENERALIZED WEAKNESS WITH FALLING EPISODES - REPLENISH HEMOGLOBIN, AND WILL START PHYSICAL THERAPY and Occupational Therapy ONCE STABLE, AND WILL CONSIDER PLACEMENT AT ASSISTED, FAMILY WILL NEED TO CONSIDER PT TO HAVE HOME HEALTH AND PAID CAREGIVERS IF THEY CHOOSE NOT TO HAVE HER GO TO THE ASSISTED ON DISCHARGE. HYPOKALEMIA - REPLENISH PER ICU PROTOCOL. LEUKOCYTOSIS - REPEAT LABS IN MORNING, WBC decreasing trend with current level of 11.9 OSTEOPOROSIS WITH CHRONIC COMPRESSION FRACTURE OF SPINE - HOLD BISPHOSPHONATE THERAPY FOR NOW ESOPHAGEAL REFLUX - PPI IV HYPERLIPIDEMIA - HOLD ANTILIPEMIC AGENTS DVT PROPHYLAXIS, CANNOT USE LOVENOX DUE TO GI BLEEDING, HOLDING COUMADIN DUE TO GI BLEEDING, CANNOT USE CALF SCD'S DUE TO CALF PAIN, WILL PLACE FOOT PUMPS ON PT IF TOLERATED. GI PROPHYLAXIS WTIH PPI THERAPY. Admission Dx SEPSIS SYNCOPAL EPISODE GASTROINTESTINAL BLEED URINARY TRACT INFECTION CHRONIC ANTICOAGULATION WITH SUPRATHERAPEUTIC INR ATRIAL FIBRILLATION ACUTE HYPOTENSION CHRONIC HYPERTENSION HYPOTHYROIDISM GENERALIZED WEAKNESS FALLING EPISODES HYPOKALEMIA LEUKOCYTOSIS OSTEOPOROSIS ESOPHAGEAL REFLUX CHRONIC COMPRESSION FRACTURE OF SPINE HYPERLIPIDEMIA Clinical Quality Measures Admission Status Admission Dx SEPSIS SYNCOPAL EPISODE GASTROINTESTINAL BLEED URINARY TRACT INFECTION CHRONIC ANTICOAGULATION WITH SUPRATHERAPEUTIC INR ATRIAL FIBRILLATION ACUTE HYPOTENSION CHRONIC HYPERTENSION HYPOTHYROIDISM GENERALIZED WEAKNESS FALLING EPISODES HYPOKALEMIA LEUKOCYTOSIS OSTEOPOROSIS ESOPHAGEAL REFLUX CHRONIC COMPRESSION FRACTURE OF SPINE HYPERLIPIDEMIA DVT/VTE Risk/Contraindication: Contraindications-Pharm: Other *list below* Contraindications-Mechi: Other *list below* Other: GI BLEEDING - CANNOT HAVE LOVENOX INJECTIONS OR COUMADIN Supervisory-Addendum Brief Verification & Attestation Participated in pt care: history, MDM, physical Personally performed: exam, history, MDM, supervision of care Care discussed with: Medical Student Procedures: n/a Results interpretation: Verified all documentation SEPSIS SYNCOPAL EPISODE GASTROINTESTINAL BLEED URINARY TRACT INFECTION CHRONIC ANTICOAGULATION WITH SUPRATHERAPEUTIC INR ATRIAL FIBRILLATION ACUTE HYPOTENSION CHRONIC HYPERTENSION HYPOTHYROIDISM GENERALIZED WEAKNESS FALLING EPISODES HYPOKALEMIA LEUKOCYTOSIS OSTEOPOROSIS ESOPHAGEAL REFLUX CHRONIC COMPRESSION FRACTURE OF SPINE HYPERLIPIDEMIA SEPSIS WITH URINARY TRACT INFECTION - PT ON IV ROCEPHIN, MONITOR CULTURE REPORT - LACTIC ACID NOW NORMAL SYNCOPAL EPISODE DUE TO GASTROINTESTINAL BLEED AND SEVERE ANEMIA - DUODENAL ULCER - PT IS RECEIVING BLOOD, iron studies indicate anemia of chronic disease will give IV iron -Was placed on clear liquid diet and NPO after midnight on 11/03 for a planned endoscopy on 11/04 by general surgery - WILL TRANSFUSE AGAIN IF NEEDED. CHRONIC ANTICOAGULATION WITH SUPRATHERAPEUTIC INR - INR normal, CANNOT RECEIVE DVT PROPHYLAXIS DUE TO GI BLEEDING ATRIAL FIBRILLATION - DEFER TO DR. HANNA HYPOTHYROIDISM - - MONITOR TSH, FREE T4, started on levothyroxine GENERALIZED WEAKNESS WITH FALLING EPISODES - REPLENISH HEMOGLOBIN, - PLANNING ON DC TO [facility]IA [facility] FOR [facility]. HYPOKALEMIA - REPLENISH PER ICU PROTOCOL. LEUKOCYTOSIS - REPEAT LABS IN MORNING, WBC DECREASING ESOPHAGEAL REFLUX - PPI IV HYPERLIPIDEMIA - HOLD ANTILIPEMIC AGENTS DVT PROPHYLAXIS, CANNOT USE LOVENOX DUE TO GI BLEEDING, HOLDING COUMADIN DUE TO GI BLEEDING, CANNOT USE CALF SCD'S DUE TO CALF PAIN, WILL PLACE FOOT PUMPS ON PT IF TOLERATED. GI PROPHYLAXIS WTIH PPI THERAPY. PENNIE LITTLE November 05, 2021 07:51 COLETTE CROWLEY MD November 05, 2021 17:43
--- NOTE | 2021-11-05 07:53 | Cardiology Progress Note ---
Subjective Date Seen by Provider: November 05, 2021 Time Seen by Provider: 07:50 Subjective/Events-last exam Patient was seen at bedside, laying down comfortably, having worsening edema Review of Systems General: No Chills, No Night Sweats; Fatigue, Malaise; No Appetite, No Other HEENT: No Head Aches, No Visual Changes, No Eye Pain, No Ear Pain, No Dysphasia, No Sinus Congestion, No Post Nasal Drip, No Sore Throat, No Other Pulmonary: Dyspnea; No Cough, No Pleuritic Chest Pain, No Other Cardiovascular: Edema; No: Chest Pain, Palpitations, Orthopnea, Paroxysmal Noc. Dyspnea, Lt Headedness, Other Focused Exam Lactate Level 11/02/21 11:05: Lactic Acid Level 2.19*H 11/02/21 16:08: Lactic Acid Level 1.61 Time of Focused Exam: 11:00 Objective-Cardiology Exam Last Set of Vital Signs Vital Signs 11/03/21 11/04/21 11/05/21 11/05/21 12:00 18:11 06:00 07:00 Temp 36.1 Pulse 95 Resp 16 B/P (MAP) 100/69 Pulse Ox 95 O2 Delivery Room Air O2 Flow Rate 3.00 I&O Intake and Output 11/05/21 00:00 Intake Total 1866.25 ml Output Total 2925 ml Balance -1058.75 ml Intake Oral 790 ml IV Total 1076.25 ml Output Urine Total 2775 ml Stool Total 150 ml # Bowel Movements 4 General: Alert, Oriented X3, Cooperative HEENT: Atraumatic, PERRLA Neck: Supple, No JVD, No Thyromegaly Lungs: Clear to Auscultation, Normal Air Movement Heart: Normal S1, Normal S2, No Murmurs, Other (Irregular) Abdomen: Normal Bowel Sounds, Soft, No Tenderness, No Hepatosplenomegaly, No Masses Extremities: No Clubbing, No Cyanosis, Normal Pulses, No Tenderness/Swelling, Other (+3 upper and lower extremities edema) Skin: No Rashes, No Breakdown, No Significant Lesion Neuro: Normal Speech, Normal Tone, Sensation Intact Psych/Mental Status: Mental Status NL, Mood NL Results Lab Laboratory Tests 11/05/21 04:30 A/P-Cardiology Admission Diagnosis GI bleed Anemia Urinary tract infection Atrial fibrillation Assessment/Plan Anemia, lower GI bleed, patient had multiple blood transfusion, continue to monitor H&H. Status post endoscopy which showed a healed duodenal ulcer and diverticulosis Bright red blood per rectum, reporting bleeding for the past week. Status post upper and lower endoscopy with Dr. Hernandez. Peripheral edema, significantly worse, fluid overload. Has history of chronic pedal edema, unable to tolerate compression socks I will give Lasix 40 mg daily and monitor Hypokalemia, replace and monitor Chest pain, nonspecific etiology, reproducible on the right side of her chest by pressing on her right shoulder, patient had extensive cardiac history. Cannot tolerate anticoagulation at this time, conservative management is recommended. Continue to monitor Atrial fibrillation with rapid ventricular response, history of permanent atrial fibrillation. I switched her Cardizem to oral, continue to titrate Cardizem dose up as tolerated [id number] score 5, maintained on Coumadin as an outpatient, supratherapeutic INR. Coumadin is on hold at this time. I would like to test Xarelto once her hemoglobin is stable Urinary tract infection, managed by primary care physician. Dizziness, multiple falls, no full syncope. Patient has history of generalized weakness and multiple falls in the past. History of dysphagia, heartburn, followed and managed by primary care physician Coronary artery disease- Cardiac catheterization done October 09, 2015 revealed 70 percent stenosis in the mid LAD. Successful stent deployment using 2.5 x 24 mm Promus Premier drug- eluting stent. Otherwise mild disease in the circumflex artery and RCA. Nonobstructive disease. Cardiac catheterization was done in September 2016 showing patent stent in the LAD, mild disease at the distal LAD and distal circumflex artery nonobstructive disease, Cardiac catheterization done in October 2018 after having an abnormal stress test which showed patent stent in the mid LAD, calcified LAD system tapering down into a very small artery distally with gsyd-ga-kdxnhrnt disease nonobstructive disease, calcified right coronary system, dominant artery with lbmm-yf-kbetneav disease nonobstructive disease. Normal left ventricular size with ejection fraction 60 percent. Conservative management, no intervention is needed. Continue to monitor Congestive heart failure, resolved, last echocardiogram done on November 03, 2021 showing normal left ventricular size with ejection fraction of 55 to 60%. Biatrial enlargement, mild to moderate mitral regurgitation, PA pressure 30 mmHg. Continue to monitor Slightly prominent aortic arch with hypertensive changes, blood pressure is under good control, continue on current medications and monitor COPD/obstructive sleep apnea, using CPAP. Hypothyroidism, followed and managed by Dr. Pisano. Hypertension, currently borderline hypotensive. Continue to monitor blood pressure Hyperlipidemia, monitor lipids Pulmonary hypertension, PA pressure 35-40 mmHg per echo done on September 09, 2019. 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 Reid Osteopenia, followed by primary care physician ANAHY HANNA MD November 05, 2021 07:53
[2021-11-05] MEDS: cefTRIAXone 1 GM PRE-MIX 50 ML IV SCH (08:00)
[2021-11-05] MEDS ORDERED: KCL 20 MEQ TAB (K-DUR) PO ONE ×2 (08:15→10:15)
--- NOTE | 2021-11-05 09:03 | Physical Therapy Daily Note ---
PT Daily Note-Current Subjective Patient was in bed and had just finished eating. After encouragement, she was compliant to treatment. Appearance pitting edema Bilaterally Mental Status Patient Orientation: Person, Place, Situation Attachments: Potts Catheter, IV Telemetry, SpO2 monitor, BP cuff, Ankle pumps Transfers SCALE: Activities may be completed with or without assistive devices. 5-Nqhkuvjtno-okualkg completes the activity by him/herself with no assistance from a helper. 5-Set-up or Clean-up Assistance-helper sets up or cleans up; patient completes activity. [place] assists only prior to or following the activity. 4-Supervision or Touching Assistance-helper provides verbal cues and/or touching/steadying and/or contact guard assistance as patient completes activity. Assistance may be provided throughout the activity or intermittently. 3-Partial/Moderate Assistance-helper does LESS THAN HALF the effort. [place] lifts, holds or supports trunk or limbs, but provides less than half the effort. 2-Substantial/Maximal Assistance-helper does MORE THAN HALF the effort. [place] lifts or holds trunk or limbs and provides more than half the effort. 6-Pvivuscjf-viipte does ALL the effort. Patient does none of the effort to complete the activity. Or, the assistance of 2 or more helpers is required for the patient to complete the activity. If activity was not attempted, code reason: 7-Patient Refused. 9-Not Applicable-not attempted and the patient did not perform the activity before the current illness, exacerbation or injury. 10-Not Attempted due to Environmental Limitations-(lack of equipment, weather restraints, etc.). 88-Not Attempted due to Medical Conditions or Safety Concerns. Sit to Lying (QC): 3 Lying to Sitting/Side of Bed(Q: 3 Sit to Stand (QC): 3 Chair/Pkr-jv-Pmrns Xfer(QC): 3 Gait Training Does the Patient Walk?: Yes Distance: 20' Walk 10 feet (QC): 4 Gait Assistive Device: FWW Treatments Ambulation, transfers, mobility Assessment Current Status: Fair Progress Patient required min assist for transfers and CGA for ambulation. Was only able to walk short distances in room. Was left in recliner with call light, tray, and all needs met. PT Customer Counter Associate Goals Nursing Home Goals PT Nursing Home Goals Time Frame: November 10, 2021 Roll Left & Right (QC): 6 Sit to Lying (QC): 4 Lying-Sitting on Side/Bed(QC): 4 Sit to Stand (QC): 6 Chair/Ghk-dk-Cddlq Xfer(QC): 6 Walk 10 feet (QC): 6 Walk 50ft with 2 Turns (QC): 6 Walk 150 ft (QC): 6 PT Plan Problem List Problem List: Activity Tolerance, Functional Strength, Safety, Balance, Gait, Transfer, Bed Mobility, ROM Treatment/Plan Treatment Plan: Continue Plan of Care Treatment Plan: Bed Mobility, Education, Functional Activity Toro, Functional Strength, Gait, Safety, Therapeutic Exercise, Transfers Treatment Duration: November 10, 2021 Frequency: 6 times per week Estimated Hrs Per Day: .5 hour per day Patient and/or Family Agrees t: Yes Safety Risks/Education Patient Education: Gait Training, Transfer Techniques, Correct Positioning, Safety Issues Teaching Recipient: Patient Teaching Methods: Discussion Response to Teaching: Verbalize Understanding Time/GCodes Time In: 0815 Time Out: 0832 Total Billed Treatment Time: 17 Total Billed Treatment 1 visit FA 17min JORGE L ARRIAGA PT November 05, 2021 09:03
[2021-11-05] MEDS: PANTOPRAZOLE 40 MG (PROTONIX) VIAL IV SCH ×2 (10:10→21:12)
--- NOTE | 2021-11-05 11:06 | Occupational Therapy Eval ---
OT Evaluation-General/PLF Medical Diagnosis Admission Date November 02, 2021 at 11:35 Medical Diagnosis: fall, UTI, anemia Onset Date: November 02, 2021 Therapy Diagnosis Therapy Diagnosis: reduced adl status Height/Weight Height (Feet): 5 Height (Inches): 7.00 Weight (Pounds): 209 Weight (Ounces): 0.0 Precautions Precautions/Isolations: Fall Prevention, Standard Precautions Referral Physician: Maia Referral Reason: Evaluation/Treatment Medical History Pertinent Medical History: Atrial Fib, CAD, Diverticulitis, GERD, HTN, PVD Current History Pt lives alone in a single story home. Her daughter assists with grocery shopping, laundry, and meals. Pt indep with adls prior to admission. She was using a walker at baseline. Reviewed History: Yes Social History Home: Single Level Current Living Status: Alone Entry Into Home: Stairs Without Railing Steps Into Home: 2 ADL-Prior Level of Function SCALE: Activities may be completed with or without assistive devices. 3-Ffsdbmjquv-dfbkzrr completes the activity by him/herself with no assistance from a helper. 5-Set-up or Clean-up Assistance-helper sets up or cleans up; patient completes activity. [place] assists only prior to or following the activity. 4-Supervision or Touching Assistance-helper provides verbal cues and/or touching/steadying and/or contact guard assistance as patient completes activity. Assistance may be provided throughout the activity or intermittently. 3-Partial/Moderate Assistance-helper does LESS THAN HALF the effort. [place] lifts, holds or supports trunk or limbs, but provides less than half the effort. 2-Substantial/Maximal Assistance-helper does MORE THAN HALF the effort. [place] lifts or holds trunk or limbs and provides more than half the effort. 3-Kidoqnrvm-jvvcpt does ALL the effort. Patient does none of the effort to complete the activity. Or, the assistance of 2 or more helpers is required for the patient to complete the activity. If activity was not attempted, code reason: 7-Patient Refused. 9-Not Applicable-not attempted and the patient did not perform the activity before the current illness, exacerbation or injury. 10-Not Attempted due to Environmental Limitations-(lack of equipment, weather restraints, etc.). 88-Not Attempted due to Medical Conditions or Safety Concerns. Self Care: Independent Functional Cognition: Needed Some Help Drive Self: No OT Current Status Subjective Pt reports increase in dizziness and SOB, 2L oxygen donned, RN notified. Appearance Pt returned to sitting in recliner, all needs within reach. Mental Status/Objective Patient Orientation: Person, Time, Situation Attachments: Leggett Catheter, IV, Oxygen, Telemetry Current Glasses/Contacts: Yes Hand Dominance: Right Upper Extremity ROM Fingers/elbow limited by edema Upper Extremity Coordination Impaired secondary to severe edema in bilateral hands ADL-Treatment Eating (QC): 4 Shower/Bathe Self (QC): 2 Toileting Hygiene (QC): 1 (leggett catheter) Pt sitting in recliner at OT arrival. She desats into low 70's multiple times with minimal movement. Cues for PLB; Quick recovery. With activity, 2L NC donned. Post donning of oxygen, pt remains >94%. Sponge bath performed seated in recliner. Significant swelling in all limbs, more notable in R hand/forearm and BLE's. Pt quickly leans forward at waist to wash down to feet, but then reports feelings of dizziness. Cues and mod assist to return to upright position. Extra time for dizziness to dissipate. Mod a to stand from low dacosta rface. Poor standing tolerance with c/o dizziness in standing. Assist to quickly wash buttocks. Gracie area did not occur due to c/o dizziness and pt needing BUE support on walker. RN notified. Pt also reports increased difficulty with swallowing when eating. She could benefit from speech consult if not already ordered. Education OT Patient Education: Correct positioning, Energy conservation, Modified ADL techniques, Purpose of tx/functional activities, Safety issues, Transfer techniques Teaching Recipient: Patient, Family Teaching Methods: Demonstration, Discussion Response to Teaching: Verbalize Understanding, Return Demonstration, Reinforcement Needed OT Retirement Goals Knocker Out Goals Time Frame: November 22, 2021 Eating (QC): 5 Oral Hygiene (QC): 5 Toileting Hygiene (QC): 4 Shower/Bathe Self (QC): 4 Upper Body Dressing (QC): 4 Lower Body Dressing (QC): 4 On/Off Footwear (QC): 4 1=Demonstrate adherence to instructed precautions during ADL tasks. 2=Patient will verbalize/demonstrate understanding of assistive devices/modifications for ADL. 3=Patient will improve strength/tolerance for activity to enable patient to perform ADL's. OT Education/Plan Problem List/Assessment Assessment: Decreased Activ Tolerance, Decreased Safety Aware, Decreased UE Strength, Edema, Impaired Cognition, Impaired Coordination, Impaired Funct Balance, Impaired Self-Care Skills, Restricted Funct UE ROM Discharge Recommendations Plan/Recommendations: Continue POC Therapy Discharge Recommendati: Post Acute OT Treatment Plan/Plan of Care Treatment,Training & Education: Yes Patient would benefit from OT for education, treatment and training to promote independence in ADL's, mobility, safety and/or upper extremity function for ADL's. Plan of Care: ADL Retraining, Functional Mobility, Group Exercise/Act as Ind, UE Funct Exercise/Act Treatment Duration: November 22, 2021 Frequency: 3 times per week (3-5x/week) Estimated Hrs Per Day: .25 hour per day Agreement: Yes Time/GCodes Start Time: 10:39 Stop Time: 11:02 Total Time Billed (hr/min): 23 Billed Treatment Time 1 visit EVH (10 min) ADL (13 min) Shawna Laureano OT November 05, 2021 11:06
[2021-11-05 14:33] LABS: HEMOGLOBIN 8.2 g/dL (11.5-16.0)
[2021-11-05 14:49] LABS: POTASSIUM 3.9 MMOL/L (3.6-5.0)
[2021-11-05 14:50] LABS: CALCIUM 7.7 MG/DL (8.5-10.1)
[2021-11-05 14:54] LABS: CREATININE SERUM 0.77 MG/DL (0.60-1.30)
[2021-11-05 14:57] LABS: MAGNESIUM 1.9 MG/DL (1.6-2.4)
--- NOTE | 2021-11-05 15:01 | Tele-ICU Progress Note ---
Subjective Date Seen by a Provider: November 05, 2021 Time Seen by a Provider: 15:01 Subjective/Events-last exam (Tele-ICU Physician , Progress Note ) Available chrt/ vitals / labs / Images reviewed Video assessment done using teleICU camera, rest of exam as per RN Discussed with RN , EXAM PER RN Events overnight : Afebrile FiO2 - ra I/O = neg Drips: ns stopped Pressors: , hemodynamically stable Consultants: Hospital course: -08: +Sev Sepsis 81 y/o F - Trauma/Fall - UTI - LGI Bleed. 11/03 ECHO - EF 55% RVSP 30 A/P GIB/ ABLA in face of AC ( coumadine - s/p transfusion 1 u prbc- HB stable at 7.6 -reversed AC - EGD 11/04 healed duodenal ulcer , colonoscopy - polyp and diverticulosis - PPI bid iv A fib RVR - on cadizem gtt ( NPO ) - Ac reversed - to resume when ok with Sx and cards - 11/03 ECHO - EF 55% RVSP 30 CP 11/03 ( responded to NTG , but also reproducible on the right side of her chest by pressing as per notes) - as per cards UTI with ? Klebs - on cefepime + metronidazole, final cx pending COPD - stable RIVER - CPAP at night - not using at home Pulm HTN due to above - follow - lasix ( off IVF chronic edema reported - diuretics resumed , gentle hydration breast cancer, stage I right breast - status post lumpectomy and sentinel lymph node biopsy in December 2004, received radiation therapy and hormonal therapy Anemia - delutional replace lytes Lines : periph (Central Line Necessity Reviewed) Potts: + OG: Nutrition: clear Analgesia: Anxiety/ delirium VTE Prophylaxis: scd Stress Ulcer Prophylaxis: ppi Plans in collaboration with bedside consultants and IM MDs. Discussed with RN to reach out if any questions or concerns A total of 33 minutes of critical care time was devoted to this patient today, required to treat and/or prevent further deterioration of critical care condition ( as above) Sepsis Event Evaluation Height, Weight, BMI Height: 5'7.00" Weight: 209lbs. 0.0oz. 94.277544tq; 106.57 BMI Method:Stated Focused Exam Lactate Level 11/02/21 16:08: Lactic Acid Level 1.61 Time of Focused Exam: 11:00 Exam Exam Patient acknowledged, consented, and participated in this virtual visit which was conducted using real time audio/video Vital Signs Date Time Temp Pulse Resp B/P (MAP) Pulse Ox O2 Delivery O2 Flow Rate FiO2 11/05/21 12:53 100 11/05/21 12:53 36.1 Nasal Cannula 2.00 11/05/21 12:00 100 17 90/67 99 Nasal Cannula 2.00 11/05/21 11:00 Nasal Cannula 2.00 11/05/21 11:00 92 13 95/73 99 Nasal Cannula 2.00 11/05/21 10:00 98 22 94/67 96 Room Air 11/05/21 09:00 96 16 108/68 98 Room Air 11/05/21 08:00 94 Room Air 11/05/21 08:00 100 15 103/78 98 Room Air 11/05/21 08:00 36.8 11/05/21 07:00 95 11/05/21 07:00 99 29 95/75 96 Room Air 11/05/21 06:00 95 16 100/69 95 Room Air 11/05/21 05:00 84 16 97/68 96 Room Air 11/05/21 04:00 85 12 106/60 95 Room Air 11/05/21 04:00 94 Room Air 11/05/21 03:00 76 15 101/69 97 Room Air 11/05/21 02:00 73 13 96/71 95 Room Air 11/05/21 01:00 86 16 99/71 97 Room Air 11/05/21 00:46 85 11/05/21 00:00 96 Room Air 11/05/21 00:00 93 22 108/85 95 Room Air 11/04/21 23:00 82 13 94/62 95 Room Air 11/04/21 22:00 92 14 100/70 97 Room Air 11/04/21 21:00 88 17 101/73 98 Room Air 11/04/21 20:00 95 Room Air 11/04/21 20:00 86 13 103/80 96 Room Air 11/04/21 19:00 89 11/04/21 19:00 101 18 112/80 99 Room Air 11/04/21 18:11 36.1 11/04/21 18:00 100 36 96/67 98 Room Air 11/04/21 17:00 95 16 108/76 98 Room Air 11/04/21 16:00 97 Room Air 11/04/21 16:00 91 13 103/88 98 Room Air I & O 11/05/21 07:00 Intake Total 1666.25 ml Output Total 1100 ml Balance 566.25 ml Height & Weight Height: 5'7.00" Weight: 209lbs. 0.0oz. 94.073838be; 106.57 BMI Method:Stated General Appearance: No Apparent Distress, WD/WN, Obese HEENT: PERRL/EOMI, TMs Normal, Normal ENT Inspection, Pharynx Normal, Other (TENDERNESS TO BACK OF HEAD) Neck: Other (IN CERVICAL COLLAR ON ARRIVAL) Respiratory: Normal Breath Sounds, No Accessory Muscle Use, No Respiratory Distress Cardiovascular: Regular Rate, Rhythm, No Murmur Capillary Refill: Less Than 3 Seconds Gastrointestinal: non tender, soft, no organomegaly; No guarding Extremity: Normal Capillary Refill, Pedal Edema (TRACE BILATERALLY), Other (DIFFUSE RIGHT LEG TENDERNESS. NO DEFORMITY. DISTAL MOTOR/SENSORY/VASCULAR INTACT) Neurologic/Psychiatric: Alert, Oriented x3, No Motor/Sensory Deficits, Normal Mood/Affect, oil burner repairer II-XII Norm as Tested Skin: Normal Color, Warm/Dry Lymphatic: No Adenopathy Results Lab Laboratory Tests 11/03/21 17:00 11/03/21 21:31 11/04/21 03:52 11/05/21 04:30 11/05/21 14:19 Assessment/Plan Assessment/Plan DOROTHY HOUGH MD November 05, 2021 15:01
--- NOTE | 2021-11-05 20:06 | Progress Note - Surgery ---
Subjective Date Seen by a Provider: November 05, 2021 Time Seen by a Provider: 08:49 Subjective/Events-last exam Worsening edema. No bleeding currently. Hgb stable. No new complaints. Denies n/v fever sweats chill or chest pain. Focused Exam Time of Focused Exam: 11:00 Objective Exam Vital Signs Date Time Temp Pulse Resp B/P (MAP) Pulse Ox O2 Delivery O2 Flow Rate FiO2 11/05/21 19:00 99 11/05/21 18:00 93 19 89/67 97 Nasal Cannula 2.00 11/05/21 17:00 92 25 87/52 98 Nasal Cannula 2.00 11/05/21 16:00 94 Room Air 11/05/21 16:00 80 25 98 Nasal Cannula 2.00 11/05/21 15:00 92 13 81/52 96 Nasal Cannula 2.00 11/05/21 12:53 100 11/05/21 12:53 36.1 Nasal Cannula 2.00 11/05/21 12:00 94 Nasal Cannula 2.00 11/05/21 12:00 100 17 90/67 99 Nasal Cannula 2.00 11/05/21 11:00 Nasal Cannula 2.00 11/05/21 11:00 92 13 95/73 99 Nasal Cannula 2.00 11/05/21 10:00 98 22 94/67 96 Room Air 11/05/21 09:00 96 16 108/68 98 Room Air 11/05/21 08:00 94 Room Air 11/05/21 08:00 100 15 103/78 98 Room Air 11/05/21 08:00 36.8 11/05/21 07:00 95 11/05/21 07:00 99 29 95/75 96 Room Air 11/05/21 06:00 95 16 100/69 95 Room Air 11/05/21 05:00 84 16 97/68 96 Room Air 11/05/21 04:00 85 12 106/60 95 Room Air 11/05/21 04:00 94 Room Air 11/05/21 03:00 76 15 101/69 97 Room Air 11/05/21 02:00 73 13 96/71 95 Room Air 11/05/21 01:00 86 16 99/71 97 Room Air 11/05/21 00:46 85 11/05/21 00:00 96 Room Air 11/05/21 00:00 93 22 108/85 95 Room Air 11/04/21 23:00 82 13 94/62 95 Room Air 11/04/21 22:00 92 14 100/70 97 Room Air 11/04/21 21:00 88 17 101/73 98 Room Air 11/04/21 20:00 95 Room Air 11/04/21 20:00 86 13 103/80 96 Room Air I & O 11/05/21 07:00 Intake Total 1666.25 ml Output Total 1100 ml Balance 566.25 ml Capillary Refill : Less Than 3 Seconds General Appearance: No Apparent Distress, WD/WN, Obese HEENT: PERRL/EOMI, TMs Normal, Normal ENT Inspection, Pharynx Normal, Other (TENDERNESS TO BACK OF HEAD) Neck: Other (IN CERVICAL COLLAR ON ARRIVAL) Respiratory: Chest Non Tender, No Accessory Muscle Use, No Respiratory Distress Cardiovascular: Regular Rate, Rhythm, No Murmur Gastrointestinal: non tender, soft, no organomegaly; No guarding Extremity: Normal Capillary Refill, Pedal Edema, Other (DIFFUSE RIGHT LEG TENDERNESS. NO DEFORMITY. DISTAL MOTOR/SENSORY/VASCULAR INTACT) Neurologic/Psychiatric: Alert, Oriented x3, No Motor/Sensory Deficits, Normal Mood/Affect, bruise trimmer II-XII Norm as Tested Skin: Normal Color, Warm/Dry Lymphatic: No Adenopathy Results Lab Laboratory Tests 11/05/21 04:30: White Blood Count 11.9H, Red Blood Count 2.48L, Hemoglobin 7.6L, Hematocrit 23L, Mean Corpuscular Volume 93, Mean Corpuscular Hemoglobin 31, Mean Corpuscular Hemoglobin Concent 33, Red Cell Distribution Width 17.4H, Platelet Count 152, Mean Platelet Volume 10.6, Sodium Level 141, Potassium Level 3.0L, Chloride Level 114H, Carbon Dioxide Level 19L, Anion Gap 8, Blood Urea Nitrogen 15, Creatinine 0.75, Estimat Glomerular Filtration Rate 79, BUN/Creatinine Ratio 20, Glucose Level 85, Calcium Level 7.4L, Magnesium Level 2.0 11/05/21 12:45: Lab Scanned Report Transfusion Reaction Form 11/05/21 14:19: Hemoglobin 8.2L, Hematocrit 25L, Sodium Level 140, Potassium Level 3.9, Chloride Level 113H, Carbon Dioxide Level 22, Anion Gap 5, Blood Urea Nitrogen 12, Creatinine 0.77, Estimat Glomerular Filtration Rate 76, BUN/Creatinine Ratio 16, Glucose Level 98, Calcium Level 7.7L, Magnesium Level 1.9 Microbiology 11/02/21 Blood Culture - Preliminary, Resulted No growth 11/02/21 Urine Culture - Final, Complete Klebsiella pneumoniae Assessment/Plan Assessment/Plan Assessment/Plan upper gi bleed healing duodenal ulcer diverticulosis protonix follow hgb transfuse prbc as neededd clear liquids Clinical Quality Measures DVT/VTE Risk/Contraindication: Contraindications-Pharm: Other *list below* Contraindications-Mechi: Other *list below* Other: GI BLEEDING - CANNOT HAVE LOVENOX INJECTIONS OR COUMADIN GIO HADDAD DO November 05, 2021 20:06
[2021-11-06] MEDS: LEVOTHYROXINE 50 MCG (LEVOTHROID) TAB PO SCH (06:23)
[2021-11-06] MEDS: metroNIDAZOLE 500MG/100ML IVPB 100 ML IV SCH ×3 (06:23→20:15)
--- NOTE | 2021-11-06 07:38 | Progress Note ---
Subjective Subjective Date Seen by Provider: November 06, 2021 Time Seen by Provider: 07:15 Pt reports that she only had the right sided chest pain that is described as fulness one time three nights ago, no recurrent chest pain. She reports her legs are waterproof coating machine tender to the touch, but are pain free at rest. She reported one episode of dizziness when using the bathroom last night. Review of Systems General: No Chills, No Night Sweats, No Malaise HEENT: No Eye Pain; Other (dizziness ) Pulmonary: Dyspnea; No Cough Cardiovascular: Edema; No: Chest Pain, Palpitations Gastrointestinal: No: Nausea, Vomiting, Abdominal Pain, Melena Genitourinary: No Dysuria, No Hematuria Musculoskeletal: neck pain, back pain, leg pain Neurological: No: Weakness, Numbness All Other Systems Reviewed All Other Systems Reviewed: Yes Objective Exam Vital Signs Vital Signs Date Time Temp Pulse Resp B/P (MAP) Pulse Ox O2 Delivery O2 Flow Rate FiO2 11/06/21 04:00 92 15 102/60 97 Nasal Cannula 2.00 11/06/21 03:22 100 Nasal Cannula 2.00 11/06/21 01:00 93 11/06/21 00:00 96 16 103/70 100 Nasal Cannula 2.00 11/05/21 23:59 100 Nasal Cannula 2.00 11/05/21 20:00 100 Nasal Cannula 2.00 11/05/21 20:00 36.5 101 19 95/55 100 Nasal Cannula 2.00 11/05/21 19:00 99 11/05/21 18:00 93 19 89/67 97 Nasal Cannula 2.00 11/05/21 17:00 92 25 87/52 98 Nasal Cannula 2.00 11/05/21 16:00 94 Room Air 11/05/21 16:00 80 25 98 Nasal Cannula 2.00 11/05/21 15:00 92 13 81/52 96 Nasal Cannula 2.00 11/05/21 12:53 100 11/05/21 12:53 36.1 Nasal Cannula 2.00 11/05/21 12:00 94 Nasal Cannula 2.00 11/05/21 12:00 100 17 90/67 99 Nasal Cannula 2.00 11/05/21 11:00 Nasal Cannula 2.00 11/05/21 11:00 92 13 95/73 99 Nasal Cannula 2.00 11/05/21 10:00 98 22 94/67 96 Room Air 11/05/21 09:00 96 16 108/68 98 Room Air 11/05/21 08:00 94 Room Air 11/05/21 08:00 100 15 103/78 98 Room Air 11/05/21 08:00 36.8 I & O 11/06/21 06:59 Intake Total 1790 ml Output Total 2650 ml Balance -860 ml General Appearance: No Apparent Distress, WD/WN, Obese Eyes: Bilateral Eye PERRL, Bilateral Eye EOMI HEENT: PERRL/EOMI, TMs Normal, Normal ENT Inspection, Pharynx Normal, Other (TENDERNESS TO BACK OF HEAD) Neck: Other (IN CERVICAL COLLAR ON ARRIVAL) Respiratory: Chest Non Tender, No Accessory Muscle Use, No Respiratory Distress Cardiovascular: Regular Rate, Rhythm, No Murmur Gastrointestinal: Normal Bowel Sounds, Soft, Tenderness (DIFFUSE LOWER ABDOMINAL TENDERNESS) Rectal: Deferred Back: Normal Inspection, No CVA Tenderness, No Vertebral Tenderness Extremity: Normal Capillary Refill, Calf Tenderness, Pedal Edema, Other (DIFFUSE RIGHT LEG TENDERNESS. NO DEFORMITY. DISTAL MOTOR/SENSORY/VASCULAR INTACT) Neurologic/Psychiatric: Alert, Oriented x3, No Motor/Sensory Deficits, Normal Mood/Affect, equipment superintendent II-XII Norm as Tested Skin: Normal Color, Warm/Dry Lymphatic: No Adenopathy Results Lab Laboratory Tests 11/05/21 12:45: Lab Scanned Report Transfusion Reaction Form 11/05/21 14:19: Hemoglobin 8.2L, Hematocrit 25L, Sodium Level 140, Potassium Level 3.9, Chloride Level 113H, Carbon Dioxide Level 22, Anion Gap 5, Blood Urea Nitrogen 12, Creatinine 0.77, Estimat Glomerular Filtration Rate 76, BUN/Creatinine Ratio 16, Glucose Level 98, Calcium Level 7.7L, Magnesium Level 1.9 Microbiology 11/02/21 Blood Culture - Preliminary, Resulted No growth 11/02/21 Urine Culture - Final, Complete Klebsiella pneumoniae Assessment/Plan Assessment/Plan Admission Dx SEPSIS SYNCOPAL EPISODE GASTROINTESTINAL BLEED URINARY TRACT INFECTION CHRONIC ANTICOAGULATION WITH SUPRATHERAPEUTIC INR ATRIAL FIBRILLATION ACUTE HYPOTENSION CHRONIC HYPERTENSION HYPOTHYROIDISM GENERALIZED WEAKNESS FALLING EPISODES HYPOKALEMIA LEUKOCYTOSIS OSTEOPOROSIS ESOPHAGEAL REFLUX CHRONIC COMPRESSION FRACTURE OF SPINE HYPERLIPIDEMIA Assessment and Plan SEPSIS SYNCOPAL EPISODE GASTROINTESTINAL BLEED URINARY TRACT INFECTION CHRONIC ANTICOAGULATION WITH SUPRATHERAPEUTIC INR ATRIAL FIBRILLATION ACUTE HYPOTENSION CHRONIC HYPERTENSION HYPOTHYROIDISM GENERALIZED WEAKNESS FALLING EPISODES HYPOKALEMIA LEUKOCYTOSIS OSTEOPOROSIS ESOPHAGEAL REFLUX CHRONIC COMPRESSION FRACTURE OF SPINE HYPERLIPIDEMIA SEPSIS WITH URINARY TRACT INFECTION - PT ON IV ROCEPHIN, culture shows Klebsiella sensitive to Rocephin will continue current antibiotic treatment - LACTIC ACID NOW NORMAL SYNCOPAL EPISODE DUE TO GASTROINTESTINAL BLEED AND SEVERE ANEMIA - PT IS RECEIVING BLOOD, iron studies indicate anemia of chronic disease will give IV iron -Was placed on clear liquid diet and NPO after midnight on 11/03 for a planned endoscopy on 11/04 by general surgery -EGD showed a healed duodenal ulcer on 11/04, will continue PPI and slowly advance her diet, monitor patient in the hospital -Lasik on hold as her BP was too low, current hemoglobin of 8.2 with yesterdays level of 7.6 - WILL TRANSFUSE AGAIN IF NEEDED. CHRONIC ANTICOAGULATION WITH SUPRATHERAPEUTIC INR - INR normal, CANNOT RECEIVE DVT PROPHYLAXIS DUE TO GI BLEEDING, Cardiology will start her on Xarelto once hemoglobin is stable ATRIAL FIBRILLATION - DEFER TO DR. HANNA ACUTE HYPOTENSION - DISCUSSED WITH DR. HANNA - HE WILL MANAGE. CHRONIC HYPERTENSION -DEFER TO DR. HANNA - HE MANAGES HER ATRIAL FIBRILLATION, WILL ADDRESS BLOOD PRESSURE MEDICATION PRIOR TO DC. HYPOTHYROIDISM - - MONITOR TSH, FREE T4, started on levothyroxine GENERALIZED WEAKNESS WITH FALLING EPISODES - REPLENISH HEMOGLOBIN, AND WILL START PHYSICAL THERAPY and Occupational Therapy ONCE STABLE, AND WILL CONSIDER PLACEMENT AT LONGTERM, FAMILY WILL NEED TO CONSIDER PT TO HAVE HOME HEALTH AND PAID CAREGIVERS IF THEY CHOOSE NOT TO HAVE HER GO TO THE LONGTERM ON DISCHARGE. HYPOKALEMIA - REPLENISH PER ICU PROTOCOL, resolved. LEUKOCYTOSIS - REPEAT LABS IN MORNING, WBC decreasing trend with current level of 11.9 OSTEOPOROSIS WITH CHRONIC COMPRESSION FRACTURE OF SPINE - HOLD BISPHOSPHONATE THERAPY FOR NOW ESOPHAGEAL REFLUX - PPI IV HYPERLIPIDEMIA - HOLD ANTILIPEMIC AGENTS DVT PROPHYLAXIS, CANNOT USE LOVENOX DUE TO GI BLEEDING, HOLDING COUMADIN DUE TO GI BLEEDING, CANNOT USE CALF SCD'S DUE TO CALF PAIN, WILL PLACE FOOT PUMPS ON PT IF TOLERATED. GI PROPHYLAXIS WTIH PPI THERAPY. Admission Dx SEPSIS SYNCOPAL EPISODE GASTROINTESTINAL BLEED URINARY TRACT INFECTION CHRONIC ANTICOAGULATION WITH SUPRATHERAPEUTIC INR ATRIAL FIBRILLATION ACUTE HYPOTENSION CHRONIC HYPERTENSION HYPOTHYROIDISM GENERALIZED WEAKNESS FALLING EPISODES HYPOKALEMIA LEUKOCYTOSIS OSTEOPOROSIS ESOPHAGEAL REFLUX CHRONIC COMPRESSION FRACTURE OF SPINE HYPERLIPIDEMIA Clinical Quality Measures Admission Status Admission Dx SEPSIS SYNCOPAL EPISODE GASTROINTESTINAL BLEED URINARY TRACT INFECTION CHRONIC ANTICOAGULATION WITH SUPRATHERAPEUTIC INR ATRIAL FIBRILLATION ACUTE HYPOTENSION CHRONIC HYPERTENSION HYPOTHYROIDISM GENERALIZED WEAKNESS FALLING EPISODES HYPOKALEMIA LEUKOCYTOSIS OSTEOPOROSIS ESOPHAGEAL REFLUX CHRONIC COMPRESSION FRACTURE OF SPINE HYPERLIPIDEMIA DVT/VTE Risk/Contraindication: Contraindications-Pharm: Other *list below* Contraindications-Mechi: Other *list below* Other: GI BLEEDING - CANNOT HAVE LOVENOX INJECTIONS OR COUMADIN PENNIE LITTLE November 06, 2021 07:38
--- NOTE | 2021-11-06 07:46 | Cardiology Progress Note ---
Subjective Date Seen by Provider: November 06, 2021 Time Seen by Provider: 07:45 Subjective/Events-last exam Patient was seen at bedside, laying down comfortably, feeling better today. Heart rate is slightly better. Review of Systems General: No Chills, No Night Sweats; Fatigue; No Malaise, No Appetite, No Other HEENT: No Head Aches, No Visual Changes, No Eye Pain, No Ear Pain, No Dysphasia, No Sinus Congestion, No Post Nasal Drip, No Sore Throat, No Other Pulmonary: Dyspnea; No Cough, No Pleuritic Chest Pain, No Other Cardiovascular: Edema; No: Chest Pain, Palpitations, Orthopnea, Paroxysmal Noc. Dyspnea, Lt Headedness, Other Focused Exam Time of Focused Exam: 11:00 Objective-Cardiology Exam Last Set of Vital Signs Vital Signs 11/05/21 11/06/21 20:00 04:00 Temp 36.5 Pulse 92 Resp 15 B/P (MAP) 102/60 Pulse Ox 97 O2 Delivery Nasal Cannula O2 Flow Rate 2.00 I&O Intake and Output 11/06/21 00:00 Intake Total 2090 ml Output Total 2575 ml Balance -485 ml Intake Oral 1010 ml IV Total 1080 ml Output Urine Total 2575 ml General: Alert, Oriented X3, Cooperative HEENT: Atraumatic, PERRLA Neck: Supple, No JVD, No Thyromegaly Lungs: Clear to Auscultation, Normal Air Movement Heart: Normal S1, Normal S2, No Murmurs, Other (Irregular) Abdomen: Normal Bowel Sounds, Soft, No Tenderness, No Hepatosplenomegaly, No Masses Extremities: No Clubbing, No Cyanosis, Normal Pulses, No Tenderness/Swelling, Other (+3 upper and lower extremities edema) Skin: No Rashes, No Breakdown, No Significant Lesion Neuro: Normal Speech, Normal Tone, Sensation Intact Psych/Mental Status: Mental Status NL, Mood NL Results Lab Laboratory Tests 11/05/21 14:19 A/P-Cardiology Admission Diagnosis GI bleed Anemia Urinary tract infection Atrial fibrillation Assessment/Plan Anemia, lower GI bleed, patient had multiple blood transfusion, continue to monitor H&H. Status post endoscopy which showed a healed duodenal ulcer and diverticulosis Bright red blood per rectum, reporting bleeding for the past week. Status post upper and lower endoscopy with Dr. Hernandez. Peripheral edema, significantly worse, fluid overload. Has history of chronic pedal edema, unable to tolerate compression socks Chest pain, nonspecific etiology, reproducible on the right side of her chest by pressing on her right shoulder, patient had extensive cardiac history. Cannot tolerate anticoagulation at this time, conservative management is recommended. Continue to monitor Atrial fibrillation with rapid ventricular response, history of permanent atrial fibrillation. I will use Cardizem CD1 20 mg daily and evaluate tolerance and response [id number] score 5, maintained on Coumadin as an outpatient, supratherapeutic INR. Coumadin is on hold at this time. I would like to test Xarelto once her hemoglobin is stable Urinary tract infection, managed by primary care physician. Dizziness, multiple falls, no full syncope. Patient has history of generalized weakness and multiple falls in the past. History of dysphagia, heartburn, followed and managed by primary care physician Coronary artery disease- Cardiac catheterization done October 09, 2015 revealed 70 percent stenosis in the mid LAD. Successful stent deployment using 2.5 x 24 mm Promus Premier drug- eluting stent. Otherwise mild disease in the circumflex artery and RCA. Nonobstructive disease. Cardiac catheterization was done in September 2016 showing patent stent in the LAD, mild disease at the distal LAD and distal circumflex artery nonobstructive disease, Cardiac catheterization done in October 2018 after having an abnormal stress test which showed patent stent in the mid LAD, calcified LAD system tapering down into a very small artery distally with [id number] disease nonobstructive disease, calcified right coronary system, dominant artery with qtzq-yd-[id number] disease nonobstructive disease. Normal left ventricular size with ejection fraction 60 percent. Conservative management, no intervention is needed. Continue to monitor Congestive heart failure, resolved, last echocardiogram done on November 03, 2021 showing normal left ventricular size with ejection fraction of 55 to 60%. Biatrial enlargement, mild to moderate mitral regurgitation, PA pressure 30 mmHg. Continue to monitor Slightly prominent aortic arch with hypertensive changes, blood pressure is under good control, continue on current medications and monitor COPD/obstructive sleep apnea, using CPAP. Hypothyroidism, followed and managed by Dr. Pisano. Hypertension, currently borderline hypotensive. Continue to monitor blood pressure Hyperlipidemia, monitor lipids Pulmonary hypertension, PA pressure 35-40 mmHg per echo done on September 09, 2019. 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 Franklin Becerril, followed by primary care physician ANAHY HANNA MD November 06, 2021 07:45
[2021-11-06] MEDS: PANTOPRAZOLE 40 MG (PROTONIX) VIAL IV SCH ×2 (08:23→20:13)
[2021-11-06] MEDS: dilTIAZem120 MG (CARDIZEM CD) CAP PO SCH (08:23)
[2021-11-06] MEDS: cefTRIAXone 1 GM PRE-MIX 50 ML IV SCH (08:23)
--- NOTE | 2021-11-06 08:46 | Tele-ICU Progress Note ---
Subjective Date Seen by a Provider: November 06, 2021 Time Seen by a Provider: 08:46 Sepsis Event Evaluation Height, Weight, BMI Height: 5'7.00" Weight: 209lbs. 0.0oz. 94.002910tk; 106.57 BMI Method:Stated Focused Exam Time of Focused Exam: 11:00 Exam Exam Patient acknowledged, consented, and participated in this virtual visit which was conducted using real time audio/video Vital Signs Date Time Temp Pulse Resp B/P (MAP) Pulse Ox O2 Delivery O2 Flow Rate FiO2 11/06/21 08:00 36.4 11/06/21 07:44 99 Room Air 11/06/21 07:40 99 Nasal Cannula 2.00 11/06/21 07:00 100 11/06/21 04:00 92 15 102/60 97 Nasal Cannula 2.00 11/06/21 03:22 100 Nasal Cannula 2.00 11/06/21 01:00 93 11/06/21 00:00 96 16 103/70 100 Nasal Cannula 2.00 11/05/21 23:59 100 Nasal Cannula 2.00 11/05/21 20:00 100 Nasal Cannula 2.00 11/05/21 20:00 36.5 101 19 95/55 100 Nasal Cannula 2.00 11/05/21 19:00 99 11/05/21 18:00 93 19 89/67 97 Nasal Cannula 2.00 11/05/21 17:00 92 25 87/52 98 Nasal Cannula 2.00 11/05/21 16:00 94 Room Air 11/05/21 16:00 80 25 98 Nasal Cannula 2.00 11/05/21 15:00 92 13 81/52 96 Nasal Cannula 2.00 11/05/21 12:53 100 11/05/21 12:53 36.1 Nasal Cannula 2.00 11/05/21 12:00 94 Nasal Cannula 2.00 11/05/21 12:00 100 17 90/67 99 Nasal Cannula 2.00 11/05/21 11:00 Nasal Cannula 2.00 11/05/21 11:00 92 13 95/73 99 Nasal Cannula 2.00 11/05/21 10:00 98 22 94/67 96 Room Air 11/05/21 09:00 96 16 108/68 98 Room Air I & O 11/06/21 07:00 Intake Total 1790 ml Output Total 2650 ml Balance -860 ml Height & Weight Height: 5'7.00" Weight: 209lbs. 0.0oz. 94.214137yc; 106.57 BMI Method:Stated General Appearance: No Apparent Distress, WD/WN, Obese HEENT: PERRL/EOMI, TMs Normal, Normal ENT Inspection, Pharynx Normal, Other (TENDERNESS TO BACK OF HEAD) Neck: Other (IN CERVICAL COLLAR ON ARRIVAL) Respiratory: Chest Non Tender, No Accessory Muscle Use, No Respiratory Distress Cardiovascular: Regular Rate, Rhythm, No Murmur Capillary Refill: Less Than 3 Seconds Gastrointestinal: non tender, soft, no organomegaly; No guarding Extremity: Normal Capillary Refill, Calf Tenderness, Pedal Edema, Other (DIFFUSE RIGHT LEG TENDERNESS. NO DEFORMITY. DISTAL MOTOR/SENSORY/VASCULAR INTACT) Neurologic/Psychiatric: Alert, Oriented x3, No Motor/Sensory Deficits, Normal Mood/Affect, fx artist II-XII Norm as Tested Skin: Normal Color, Warm/Dry Lymphatic: No Adenopathy Results Lab Laboratory Tests 11/05/21 04:30 11/05/21 14:19 MISTY GRACE MD November 06, 2021 08:46
[2021-11-06] MEDS ORDERED: DIGOXIN 0.25 MG/ML (LANOXIN) 2 ML AMP IV NR (09:45)
--- NOTE | 2021-11-06 09:59 | Physical Therapy Daily Note ---
PT Daily Note-Current Subjective Patient agrees to PT. Mental Status Patient Orientation: Normal For Age Attachments: Potts Catheter, IV Transfers SCALE: Activities may be completed with or without assistive devices. 3-Tdnlrldwma-xuzxtbh completes the activity by him/herself with no assistance from a helper. 5-Set-up or Clean-up Assistance-helper sets up or cleans up; patient completes activity. [place] assists only prior to or following the activity. 4-Supervision or Touching Assistance-helper provides verbal cues and/or touching/steadying and/or contact guard assistance as patient completes activity. Assistance may be provided throughout the activity or intermittently. 3-Partial/Moderate Assistance-helper does LESS THAN HALF the effort. [place] lifts, holds or supports trunk or limbs, but provides less than half the effort. 2-Substantial/Maximal Assistance-helper does MORE THAN HALF the effort. [place] lifts or holds trunk or limbs and provides more than half the effort. 1-Ejmfxwvxw-huibqf does ALL the effort. Patient does none of the effort to complete the activity. Or, the assistance of 2 or more helpers is required for the patient to complete the activity. If activity was not attempted, code reason: 7-Patient Refused. 9-Not Applicable-not attempted and the patient did not perform the activity before the current illness, exacerbation or injury. 10-Not Attempted due to Environmental Limitations-(lack of equipment, weather restraints, etc.). 88-Not Attempted due to Medical Conditions or Safety Concerns. Lying to Sitting/Side of Bed(Q: 3 Sit to Stand (QC): 3 Chair/Wkd-fk-Bmzxp Xfer(QC): 3 Toilet Transfer (QC): 3 Gait Training Distance: 25' Walk 10 feet (QC): 3 Gait Assistive Device: FWW WBOS with ambulation Exercises Supine Ex: Ankle pumps, Quad Set, Heel Slides Supine Reps: 12 (AAROM) Seated Therapy Exercises: Long arc quads Seated Reps: 12 Assessment Patient requires time to complete all functional tasks. Patient incontinent BM during session requiring dependent assist to cleanse. Patient is on commode to complete BM. Nursing notified. PT Detention Goals Detention Goals PT Detention Goals Time Frame: November 10, 2021 Roll Left & Right (QC): 6 Sit to Lying (QC): 4 Lying-Sitting on Side/Bed(QC): 4 Sit to Stand (QC): 6 Chair/Mck-qt-Hawhx Xfer(QC): 6 Walk 10 feet (QC): 6 Walk 50ft with 2 Turns (QC): 6 Walk 150 ft (QC): 6 PT Plan Treatment/Plan Treatment Plan: Continue Plan of Care Treatment Plan: Bed Mobility, Education, Functional Activity Toro, Functional Strength, Gait, Safety, Therapeutic Exercise, Transfers Treatment Duration: November 10, 2021 Frequency: 6 times per week Estimated Hrs Per Day: .5 hour per day Patient and/or Family Agrees t: Yes Time/GCodes Time In: 810 Time Out: 834 Total Billed Treatment Time: 24 Total Billed Treatment 1 visit FA x 2 24 min JOSEPH GLASS PT November 06, 2021 09:59
[2021-11-06] MEDS: LACTOBACILLUS ACIDOPHILUS (PROBIOTIC) CAPSULE PO SCH ×3 (10:09→17:56)
--- NOTE | 2021-11-06 14:16 | Occupational Ther Daily Note ---
OT Current Status-Daily Note Subjective Pt alert, sitting on BSC. Nrsg and daughter in room. Pt agrees to therapy. Mental Status/Objective Patient Orientation: Person, Place, Time, Situation Attachments: Potts Catheter, IV, Oxygen, SCD's, Telemetry ADL-Treatment Pt is able to thread arm into sleeves of hospital gown, requires assist to manipulate around back. Assist to stand then 2nd person assist to cleanse after BM. Min A using FWW to side step and back to get to HOB. Assist x2 for EOB to supine. Pt able to assist to roll side to side. After therapy, pt lying in bed with call light/phone in reach. All needs met in room. Therapy Code Descriptions/Definitions Functional [place] Measure: 0=Not Assessed/NA 4=Minimal Assistance 1=Total Assistance 5=Supervision or Setup 2=Maximal Assistance 6=Modified [place] 3=Moderate Assistance 7=Complete IndependenceSCALE: Activities may be completed with or without assistive devices. 9-Fimukavyqv-dqdjljz completes the activity by him/herself with no assistance from a helper. 5-Set-up or Clean-up Assistance-helper sets up or cleans up; patient completes activity. [place] assists only prior to or following the activity. 4-Supervision or Touching Assistance-helper provides verbal cues and/or touching/steadying and/or contact guard assistance as patient completes activity. Assistance may be provided throughout the activity or intermittently. 3-Partial/Moderate Assistance-helper does LESS THAN HALF the effort. [place] lifts, holds or supports trunk or limbs, but provides less than half the effort. 2-Substantial/Maximal Assistance-helper does MORE THAN HALF the effort. [place] lifts or holds trunk or limbs and provides more than half the effort. 3-Xlpggfome-ixseku does ALL the effort. Patient does none of the effort to complete the activity. Or, the assistance of 2 or more helpers is required for the patient to complete the activity. If activity was not attempted, code reason: 7-Patient Refused. 9-Not Applicable-not attempted and the patient did not perform the activity before the current illness, exacerbation or injury. 10-Not Attempted due to Environmental Limitations-(lack of equipment, weather restraints, etc.). 88-Not Attempted due to Medical Conditions or Safety Concerns. Upper Body Dressing (QC): 3 (mod A) Toileting Hygiene (QC): 1 Toilet Transfer (QC): 3 OT Teaching Pastor Goals Shelter Goals Time Frame: November 22, 2021 Eating (QC): 5 Oral Hygiene (QC): 5 Toileting Hygiene (QC): 4 Shower/Bathe Self (QC): 4 Upper Body Dressing (QC): 4 Lower Body Dressing (QC): 4 On/Off Footwear (QC): 4 1=Demonstrate adherence to instructed precautions during ADL tasks. 2=Patient will verbalize/demonstrate understanding of assistive devices/modifications for ADL. 3=Patient will improve strength/tolerance for activity to enable patient to perform ADL's. OT Education/Plan Problem List/Assessment Assessment: Decreased Activ Tolerance, Decreased UE Strength, Impaired Bed Mobility, Impaired Self-Care Skills Discharge Recommendations Plan/Recommendations: Continue POC Treatment Plan/Plan of Care Patient would benefit from OT for education, treatment and training to promote independence in ADL's, mobility, safety and/or upper extremity function for ADL's. Plan of Care: ADL Retraining, Functional Mobility, Group Exercise/Act as Ind, UE Funct Exercise/Act Treatment Duration: November 22, 2021 Frequency: 3 times per week (3-5x/week) Estimated Hrs Per Day: .25 hour per day Agreement: Yes Time/GCodes Start Time: 13:40 Stop Time: 14:10 Total Time Billed (hr/min): 30 Billed Treatment Time 1 visit-ADL 2 (30 min) ALEXANDR CLAUDIO November 06, 2021 14:16
--- NOTE | 2021-11-06 14:38 | Progress Note - Surgery ---
Subjective Date Seen by a Provider: November 06, 2021 Time Seen by a Provider: 12:01 Subjective/Events-last exam Patient fatigued. Has not had any more blood per rectum. Patient having no abdominal pain. She still is edematous and weeping some fluid. She denies any other complaints at this time. She denies any nausea vomiting fever sweats chills shortness of breath or chest pain. Patient wanting food. Focused Exam Time of Focused Exam: 11:00 Objective Exam Vital Signs Date Time Temp Pulse Resp B/P (MAP) Pulse Ox O2 Delivery O2 Flow Rate FiO2 11/06/21 12:00 98 Room Air 11/06/21 12:00 89 20 96/67 100 Room Air 11/06/21 11:00 96 24 102/75 100 Room Air 11/06/21 10:00 101 19 103/77 100 Room Air 11/06/21 09:00 112 19 104/71 96 Room Air 11/06/21 08:00 90 30 83/59 94 Room Air 11/06/21 08:00 36.4 11/06/21 08:00 98 Room Air 11/06/21 07:44 99 Room Air 11/06/21 07:40 99 Nasal Cannula 2.00 11/06/21 07:00 100 11/06/21 07:00 91 15 104/70 100 Room Air 11/06/21 04:00 92 15 102/60 97 Nasal Cannula 2.00 11/06/21 03:22 100 Nasal Cannula 2.00 11/06/21 01:00 93 11/06/21 00:00 96 16 103/70 100 Nasal Cannula 2.00 11/05/21 23:59 100 Nasal Cannula 2.00 11/05/21 20:00 100 Nasal Cannula 2.00 11/05/21 20:00 36.5 101 19 95/55 100 Nasal Cannula 2.00 11/05/21 19:00 99 11/05/21 18:00 93 19 89/67 97 Nasal Cannula 2.00 11/05/21 17:00 92 25 87/52 98 Nasal Cannula 2.00 11/05/21 16:00 94 Room Air 11/05/21 16:00 80 25 98 Nasal Cannula 2.00 11/05/21 15:00 92 13 81/52 96 Nasal Cannula 2.00 I & O 11/06/21 06:59 Intake Total 1790 ml Output Total 2650 ml Balance -860 ml Capillary Refill : Less Than 3 Seconds General Appearance: No Apparent Distress, WD/WN, Obese HEENT: PERRL/EOMI, Normal ENT Inspection, Pharynx Normal Neck: Non Tender, Supple Respiratory: Chest Non Tender, No Accessory Muscle Use, No Respiratory Distress Cardiovascular: Regular Rate, Rhythm, No JVD Gastrointestinal: non tender, soft, no organomegaly; No guarding Extremity: Normal Capillary Refill, Calf Tenderness, Pedal Edema, Swelling (Diffuse edema), Other (DIFFUSE RIGHT LEG TENDERNESS. NO DEFORMITY. 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 difficile GDH Antigen & Toxins - Final, Complete 11/02/21 Blood Culture - Preliminary, Resulted No growth 11/02/21 Urine Culture - Final, Complete Klebsiella pneumoniae Assessment/Plan Assessment/Plan Assessment/Plan upper gi bleed healing duodenal ulcer diverticulosis cecal polyp s/p polypectomy protonix follow hgb transfuse prbc as neededd slowly advance diet Clinical Quality Measures DVT/VTE Risk/Contraindication: Contraindications-Pharm: Other *list below* Contraindications-Mechi: Other *list below* Other: GI BLEEDING - CANNOT HAVE LOVENOX INJECTIONS OR COUMADIN GIO HADDAD DO November 06, 2021 14:38
[2021-11-06] MEDS ORDERED: DIGOXIN 0.125 MG (LANOXIN) TAB PO NR (15:00)
[2021-11-06] MEDS: LIDOCAINE 4% (SALONPAS) PATCH TOP SCH (17:56)
[2021-11-06] MEDS ORDERED: LIDOCAINE PATCH REMOVAL TP SCH (21:00)
[2021-11-07] MEDS: metroNIDAZOLE 500MG/100ML IVPB 100 ML IV SCH (04:15)
[2021-11-07] MEDS: LEVOTHYROXINE 50 MCG (LEVOTHROID) TAB PO SCH (04:16)
[2021-11-07 04:36] LABS: BASOPHILS % (AUTO) 0 % (0-10); EOSINOPHILS # (AUTO) 0.2 10^3/uL (0.0-0.3); EOSINOPHILS % (AUTO) 1 % (0-10); HEMATOCRIT 24 % (35-52); HEMOGLOBIN 7.9 g/dL (11.5-16.0); LYMPHOCYTES # (AUTO) 1.9 10^3/uL (1.0-4.0); LYMPHOCYTES % (AUTO) 12 % (12-44); MEAN CORPUSCULAR HEMOGLOBIN 31 pg (25-34); MEAN CORPUSCULAR HGB CONC 33 g/dL (32-36); MEAN CORPUSCULAR VOLUME 95 fL (80-99); MEAN PLATELET VOLUME 10.4 fL (9.0-12.2); MONOCYTES # (AUTO) 1.6 10^3/uL (0.0-1.0); MONOCYTES % (AUTO) 10 % (0-12); NEUTROPHILS # (AUTO) 11.1 10^3/uL (1.8-7.8); NEUTROPHILS % (AUTO) 70 % (42-75); PLATELET COUNT 135 10^3/uL (130-400); WHITE BLOOD COUNT 15.7 10^3/uL (4.3-11.0)
[2021-11-07 04:43] LABS: ALBUMIN 1.8 GM/DL (3.2-4.5); POTASSIUM 3.9 MMOL/L (3.6-5.0)
[2021-11-07 04:44] LABS: CALCIUM 8.5 MG/DL (8.5-10.1)
[2021-11-07 04:45] LABS: TOTAL PROTEIN 3.6 GM/DL (6.4-8.2)
[2021-11-07 04:47] LABS: BILIRUBIN,TOTAL 0.4 MG/DL (0.1-1.0)
[2021-11-07 04:49] LABS: CREATININE SERUM 0.91 MG/DL (0.60-1.30); PHOSPHORUS 2.8 MG/DL (2.3-4.7)
[2021-11-07 04:52] LABS: MAGNESIUM 1.8 MG/DL (1.6-2.4)
[2021-11-07 05:04] LABS: ANISOCYTOSIS MODERATE; EOSINOPHILS % (MANUAL) 1 %; LYMPHOCYTES % (MANUAL) 14 %; MONOCYTES % (MANUAL) 11 %; NEUTROPHILS % (MANUAL) 74 %; NUCLEATED RED BLOOD CELLS 12; POIKILOCYTOSIS MARKED; POLYCHROMASIA MARKED
[2021-11-07 05:05] LABS: ACANTHOCYTES SLIGHT; BURR CELLS MARKED; CRENATED RBC SLIGHT; MICROCYTOSIS SLIGHT; TOXIC GRANULATION/VACUOLAZATIO 1+
[2021-11-07] MEDS ORDERED: KCL 20 MEQ TAB (K-DUR) PO SCH (06:00)
[2021-11-07] MEDS ORDERED: POTASSIUM CL 10MEQ/50ML IVPB 50 ML IV SCH (06:00)
[2021-11-07] MEDS ORDERED: MAGNESIUM 1 GM/100 ML IVPB 100 ML IV SCH (06:00)
--- NOTE | 2021-11-07 07:04 | Progress Note ---
Subjective Subjective Date Seen by Provider: November 07, 2021 Time Seen by Provider: 06:45 Pt reports that she only had the right sided chest pain that is described as fulness one time four nights ago, no recurrent chest pain. She reports her legs are filter press tender head to the touch, but are pain free at rest. She denies any N/V or blood in the stool. Nurses report that she has been having diarrhea. Review of Systems General: Fatigue Pulmonary: Dyspnea Cardiovascular: Edema Gastrointestinal: Diarrhea; No: Nausea, Vomiting, Abdominal Pain, Melena Genitourinary: No Dysuria, No Hematuria Musculoskeletal: neck pain, back pain, leg pain Neurological: No: Weakness, Numbness All Other Systems Reviewed All Other Systems Reviewed: Yes Objective Exam Vital Signs Vital Signs Date Time Temp Pulse Resp B/P (MAP) Pulse Ox O2 Delivery O2 Flow Rate FiO2 11/07/21 06:00 91 15 98/45 100 Nasal Cannula 2.00 11/07/21 05:00 88 14 93/58 100 Nasal Cannula 2.00 11/07/21 04:00 96 Nasal Cannula 2.00 11/07/21 04:00 73 14 95/53 100 Nasal Cannula 2.00 11/07/21 04:00 36.1 Nasal Cannula 2.00 11/07/21 03:00 80 15 97/59 100 Nasal Cannula 2.00 11/07/21 02:00 78 13 91/68 100 Nasal Cannula 2.00 11/07/21 01:00 76 11/07/21 01:00 76 14 93/49 99 Nasal Cannula 2.00 11/07/21 00:00 36.4 84 14 97/66 100 Nasal Cannula 2.00 11/06/21 23:33 96 Nasal Cannula 2.00 11/06/21 23:00 90 21 86/62 100 Nasal Cannula 2.00 11/06/21 22:00 90 14 92/56 100 Nasal Cannula 2.00 11/06/21 21:00 94 16 98/65 100 Room Air 11/06/21 20:00 36.1 84 15 104/71 100 Room Air 11/06/21 20:00 96 Nasal Cannula 2.00 11/06/21 19:00 93 16 104/71 100 Room Air 11/06/21 19:00 80 11/06/21 18:00 93 18 124/71 100 Room Air 11/06/21 17:00 82 14 98/69 100 Room Air 11/06/21 16:00 37.2 86 14 96/68 99 11/06/21 16:00 89 14 103/69 100 Room Air 11/06/21 15:43 96 Room Air 11/06/21 15:00 73 16 102/67 100 Room Air 11/06/21 14:00 137 93/72 Room Air 11/06/21 13:00 89 17 93/69 100 Room Air 11/06/21 13:00 108 11/06/21 12:00 98 Room Air 11/06/21 12:00 89 20 96/67 100 Room Air 11/06/21 11:00 96 24 102/75 100 Room Air 11/06/21 10:00 101 19 103/77 100 Room Air 11/06/21 09:00 112 19 104/71 96 Room Air 11/06/21 08:00 90 30 83/59 94 Room Air 11/06/21 08:00 36.4 11/06/21 08:00 98 Room Air 11/06/21 07:44 99 Room Air 11/06/21 07:40 99 Nasal Cannula 2.00 I & O 11/07/21 07:00 Intake Total 1600 ml Output Total 2850 ml Balance -1250 ml General Appearance: No Apparent Distress, WD/WN, Obese Eyes: Bilateral Eye PERRL, Bilateral Eye EOMI HEENT: PERRL/EOMI, Normal ENT Inspection, Pharynx Normal Neck: Non Tender, Supple Respiratory: Chest Non Tender, No Accessory Muscle Use, No Respiratory Distress Cardiovascular: Regular Rate, Rhythm, No JVD Gastrointestinal: Normal Bowel Sounds, Soft, Tenderness (DIFFUSE LOWER ABDOMINAL TENDERNESS) Rectal: Deferred Back: Normal Inspection, No CVA Tenderness, No Vertebral Tenderness Extremity: Normal Capillary Refill, Calf Tenderness, Pedal Edema, Swelling (Diffuse edema), Other (DIFFUSE RIGHT LEG TENDERNESS. NO DEFORMITY. 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 Norm as Tested Skin: Normal Color, Other (Skin weeping) Lymphatic: No Adenopathy Results Lab Laboratory Tests 11/06/21 09:00: Stool Occult Blood Immunoassay POSITIVEH 11/07/21 04:27: White Blood Count 15.7H, Red Blood Count 2.55L, Hemoglobin 7.9L, Hematocrit 24L, Mean Corpuscular Volume 95, Mean Corpuscular Hemoglobin 31, Mean Corpuscular Hemoglobin Concent 33, Red Cell Distribution Width 19.5H, Platelet Count 135, Mean Platelet Volume 10.4, Immature Granulocyte % (Auto) 6, Neutrophils (%) (Auto) 70, Lymphocytes (%) (Auto) 12, Monocytes (%) (Auto) 10, Eosinophils (%) (Auto) 1, Basophils (%) (Auto) 0, Neutrophils # (Auto) 11.1H, Lymphocytes # (Auto) 1.9, Monocytes # (Auto) 1.6H, Eosinophils # (Auto) 0.2, Basophils # (Auto) 0.0, Immature Granulocyte # (Auto) 0.9H, Neutrophils % (Manual) 74, Lymphocytes % (Manual) 14, Monocytes % (Manual) 11, Eosinophils % (Manual) 1, Nucleated Red Blood Cells 12, Toxic Granulation 1+, Polychromasia MARKED, Poikilocytosis MARKED, Basophilic Stippling MODERATE, Anisocytosis MODERATE, Microcytosis SLIGHT, [place] Cells MARKED, Crenated Cell SLIGHT, Acanthocytes SLIGHT, Sodium Level 139, Potassium Level 3.9, Chloride Level 113H, Carbon Dioxide Level 19L, Anion Gap 7, Blood Urea Nitrogen 9, Creatinine 0.91, Estimat Glomerular Filtration Rate 63, BUN/Creatinine Ratio 10, Glucose Level 107H, Calcium Level 8.5, Corrected Calcium 10.3H, Phosphorus Level 2.8, Magnesium Level 1.8, Total Bilirubin 0.4, Aspartate Amino Transf (AST/SGOT) 17, Alanine Aminotransferase (ALT/SGPT) 23, Alkaline Phosphatase 49, Total Protein 3.6L, Albumin 1.8L 11/07/21 06:47: Microbiology 11/06/21 C. difficile GDH Antigen & Toxins - Final, Complete 11/02/21 Blood Culture - Preliminary, Resulted No growth 11/02/21 Urine Culture - Final, Complete Klebsiella pneumoniae Assessment/Plan Assessment/Plan Admission Dx SEPSIS SYNCOPAL EPISODE GASTROINTESTINAL BLEED URINARY TRACT INFECTION CHRONIC ANTICOAGULATION WITH SUPRATHERAPEUTIC INR ATRIAL FIBRILLATION ACUTE HYPOTENSION CHRONIC HYPERTENSION HYPOTHYROIDISM GENERALIZED WEAKNESS FALLING EPISODES HYPOKALEMIA LEUKOCYTOSIS OSTEOPOROSIS ESOPHAGEAL REFLUX CHRONIC COMPRESSION FRACTURE OF SPINE HYPERLIPIDEMIA Assessment and Plan SEPSIS SYNCOPAL EPISODE GASTROINTESTINAL BLEED URINARY TRACT INFECTION CHRONIC ANTICOAGULATION WITH SUPRATHERAPEUTIC INR ATRIAL FIBRILLATION ACUTE HYPOTENSION CHRONIC HYPERTENSION HYPOTHYROIDISM GENERALIZED WEAKNESS FALLING EPISODES HYPOKALEMIA LEUKOCYTOSIS OSTEOPOROSIS ESOPHAGEAL REFLUX CHRONIC COMPRESSION FRACTURE OF SPINE HYPERLIPIDEMIA Diarrhea SEPSIS WITH URINARY TRACT INFECTION - PT ON IV ROCEPHIN, culture shows Klebsiella sensitive to Rocephin will continue current antibiotic treatment - LACTIC ACID NOW NORMAL SYNCOPAL EPISODE DUE TO GASTROINTESTINAL BLEED AND SEVERE ANEMIA - PT IS RECEIVING BLOOD, iron studies indicate anemia of chronic disease will give IV iron -Was placed on clear liquid diet and NPO after midnight on 11/03 for a planned endoscopy on 11/04 by general surgery -EGD showed a healed duodenal ulcer on 11/04, will continue PPI and slowly advance her diet, monitor patient in the hospital -Lasik on hold as her BP was too low, current hemoglobin stable at 7.9 - WILL TRANSFUSE AGAIN IF NEEDED. CHRONIC ANTICOAGULATION WITH SUPRATHERAPEUTIC INR - INR normal, CANNOT RECEIVE DVT PROPHYLAXIS DUE TO GI BLEEDING ATRIAL FIBRILLATION - DEFER TO DR. HANNA ACUTE HYPOTENSION - DISCUSSED WITH DR. HANNA - HE WILL MANAGE. CHRONIC HYPERTENSION -DEFER TO DR. HANNA - HE MANAGES HER ATRIAL FIBRILLATION, WILL ADDRESS BLOOD PRESSURE MEDICATION PRIOR TO DC. HYPOTHYROIDISM - - MONITOR TSH, FREE T4, started on levothyroxine GENERALIZED WEAKNESS WITH FALLING EPISODES - REPLENISH HEMOGLOBIN, AND WILL START PHYSICAL THERAPY and Occupational Therapy ONCE STABLE, AND WILL CONSIDER PLACEMENT AT SNF, FAMILY WILL NEED TO CONSIDER PT TO HAVE HOME HEALTH AND PAID CAREGIVERS IF THEY CHOOSE NOT TO HAVE HER GO TO THE SNF ON DISCHARGE. HYPOKALEMIA - REPLENISH PER ICU PROTOCOL, resolved. LEUKOCYTOSIS - REPEAT LABS IN MORNING, WBC current level of 15.7 OSTEOPOROSIS WITH CHRONIC COMPRESSION FRACTURE OF SPINE - HOLD BISPHOSPHONATE THERAPY FOR NOW ESOPHAGEAL REFLUX - PPI IV HYPERLIPIDEMIA - HOLD ANTILIPEMIC AGENTS Diarrhea -C Diff. culture was ordered, negative DVT PROPHYLAXIS, CANNOT USE LOVENOX DUE TO GI BLEEDING, HOLDING COUMADIN DUE TO GI BLEEDING, CANNOT USE CALF SCD'S DUE TO CALF PAIN, WILL PLACE FOOT PUMPS ON PT IF TOLERATED. GI PROPHYLAXIS WTIH PPI THERAPY. Admission Dx SEPSIS SYNCOPAL EPISODE GASTROINTESTINAL BLEED URINARY TRACT INFECTION CHRONIC ANTICOAGULATION WITH SUPRATHERAPEUTIC INR ATRIAL FIBRILLATION ACUTE HYPOTENSION CHRONIC HYPERTENSION HYPOTHYROIDISM GENERALIZED WEAKNESS FALLING EPISODES HYPOKALEMIA LEUKOCYTOSIS OSTEOPOROSIS ESOPHAGEAL REFLUX CHRONIC COMPRESSION FRACTURE OF SPINE HYPERLIPIDEMIA Clinical Quality Measures Admission Status Admission Dx SEPSIS SYNCOPAL EPISODE GASTROINTESTINAL BLEED URINARY TRACT INFECTION CHRONIC ANTICOAGULATION WITH SUPRATHERAPEUTIC INR ATRIAL FIBRILLATION ACUTE HYPOTENSION CHRONIC HYPERTENSION HYPOTHYROIDISM GENERALIZED WEAKNESS FALLING EPISODES HYPOKALEMIA LEUKOCYTOSIS OSTEOPOROSIS ESOPHAGEAL REFLUX CHRONIC COMPRESSION FRACTURE OF SPINE HYPERLIPIDEMIA DVT/VTE Risk/Contraindication: Contraindications-Pharm: Other *list below* Contraindications-Mechi: Other *list below* Other: GI BLEEDING - CANNOT HAVE LOVENOX INJECTIONS OR COUMADIN PENNIE LITTLE November 07, 2021 07:04
[2021-11-07] MEDS: LIDOCAINE 4% (SALONPAS) PATCH TOP SCH (07:36)
[2021-11-07] MEDS: PANTOPRAZOLE 40 MG (PROTONIX) VIAL IV SCH (07:52)
[2021-11-07] MEDS: dilTIAZem120 MG (CARDIZEM CD) CAP PO SCH (07:53)
[2021-11-07] MEDS: LACTOBACILLUS ACIDOPHILUS (PROBIOTIC) CAPSULE PO SCH (07:53)
[2021-11-07] MEDS ORDERED: AMOX1TAB12 PO (08:23)
[2021-11-07] MEDS ORDERED: ACET-93 PO (08:23)
[2021-11-07] MEDS ORDERED: PANT40TA52 PO (08:23)
[2021-11-07] MEDS ORDERED: LACT1CAP7 PO (08:23)
--- NOTE | 2021-11-07 08:25 | Discharge Inst-Skilled Nursing ---
Discharge Inst-Skilled NF Reconcile Patient Problems Problems Reviewed?: Yes Patient Instructions Patient Problems: SEPSIS SYNCOPAL EPISODE GASTROINTESTINAL BLEED URINARY TRACT INFECTION CHRONIC ANTICOAGULATION WITH SUPRATHERAPEUTIC INR ATRIAL FIBRILLATION ACUTE HYPOTENSION CHRONIC HYPERTENSION HYPOTHYROIDISM GENERALIZED WEAKNESS FALLING EPISODES HYPOKALEMIA LEUKOCYTOSIS OSTEOPOROSIS ESOPHAGEAL REFLUX CHRONIC COMPRESSION FRACTURE OF SPINE HYPERLIPIDEMIA Goal: improved strength - goal is to go home in a few weeks Consult/Follow Up/Orders Follow Up Appt.: 1 wk [facility], 1 wk jennifer [facility] Admit to: [facility] Certification (SNF) I certify that SNF services are required to be given on an inpatient basis because of the above named patient's need for half-way care on a continuing basis for the conditions(s) for which he/she was receiving inpatient hospital services prior to his/her transfer to the SNF. [facility] Facility Order: Nursing Services, [facility]-Evaluate & Treat, Physical Therapy-Evaluate & Treat Oxygen Delivery Method: Nasal Cannula Discharge Diet: Low Sodium Diet Daily Activity as Tolerated: Yes Resuscitation Status: Full Code New & Resume Previous Orders New & Resume Previous Orders cbc, cmp, magnesium on 11/10/21 Colette Pisano November 07, 2021 08:23 COLETTE PISANO MD November 07, 2021 08:25
--- NOTE | 2021-11-07 08:27 | Discharge Summary ---
Diagnosis/Chief Complaint Date of Admission November 02, 2021 at 11:35 Date of Discharge Discharge Date: November 07, 2021 Discharge Time: 1030 Admission Diagnosis Admission Diagnosis SEPSIS SYNCOPAL EPISODE GASTROINTESTINAL BLEED URINARY TRACT INFECTION CHRONIC ANTICOAGULATION WITH SUPRATHERAPEUTIC INR ATRIAL FIBRILLATION ACUTE HYPOTENSION CHRONIC HYPERTENSION HYPOTHYROIDISM GENERALIZED WEAKNESS FALLING EPISODES HYPOKALEMIA LEUKOCYTOSIS OSTEOPOROSIS ESOPHAGEAL REFLUX CHRONIC COMPRESSION FRACTURE OF SPINE HYPERLIPIDEMIA Discharge Diagnosis SEPSIS SYNCOPAL EPISODE GASTROINTESTINAL BLEED URINARY TRACT INFECTION CHRONIC ANTICOAGULATION WITH SUPRATHERAPEUTIC INR ATRIAL FIBRILLATION ACUTE HYPOTENSION CHRONIC HYPERTENSION HYPOTHYROIDISM GENERALIZED WEAKNESS FALLING EPISODES HYPOKALEMIA LEUKOCYTOSIS OSTEOPOROSIS ESOPHAGEAL REFLUX CHRONIC COMPRESSION FRACTURE OF SPINE HYPERLIPIDEMIA Reason Hospital Visit PT IS A 81 Y/O FEMALE WHO PRESENTED TO THE HOSPITAL AFTER HAVING SEVERAL FALLS AND A SYNCOPAL EPISODE AT HOME. SHE HAD SCANS OF HEAD, NECK, SPINE, LEGS AND THERE WERE NO ACUTE FRACTURES. SHE REPORTS THAT SHE HAS BEEN HAVING BLOODY STOOLS OFF AND ON FOR ABOUT A WEEK. Discharge Summary Discharge Physical Examination Allergies: Coded Allergies: Sulfa (Sulfonamide Antibiotics) (Verified Allergy, Mild, RASH, 10/26/18) Vitals & I&Os Vital Signs Date Time Temp Pulse Resp B/P (MAP) Pulse Ox O2 Delivery O2 Flow Rate FiO2 11/07/21 07:34 36.1 86 16 89/60 98 Nasal Cannula 2.00 Hospital Course SEPSIS SYNCOPAL EPISODE GASTROINTESTINAL BLEED URINARY TRACT INFECTION CHRONIC ANTICOAGULATION WITH SUPRATHERAPEUTIC INR ATRIAL FIBRILLATION ACUTE HYPOTENSION CHRONIC HYPERTENSION HYPOTHYROIDISM GENERALIZED WEAKNESS FALLING EPISODES HYPOKALEMIA LEUKOCYTOSIS OSTEOPOROSIS ESOPHAGEAL REFLUX CHRONIC COMPRESSION FRACTURE OF SPINE HYPERLIPIDEMIA SEPSIS WITH URINARY TRACT INFECTION - PT ON IV ROCEPHIN, MONITOR CULTURE REPORT - LACTIC ACID NOW NORMAL SYNCOPAL EPISODE DUE TO GASTROINTESTINAL BLEED AND SEVERE ANEMIA - DUODENAL ULCER - PT IS RECEIVING BLOOD, iron studies indicate anemia of chronic disease will give IV iron -Was placed on clear liquid diet and NPO after midnight on 11/03 for a planned endoscopy on 11/04 by general surgery - WILL TRANSFUSE AGAIN IF NEEDED. CHRONIC ANTICOAGULATION WITH SUPRATHERAPEUTIC INR - INR normal, CANNOT RECEIVE DVT PROPHYLAXIS DUE TO GI BLEEDING ATRIAL FIBRILLATION - DEFER TO DR. HANNA HYPOTHYROIDISM - - MONITOR TSH, FREE T4, started on levothyroxine GENERALIZED WEAKNESS WITH FALLING EPISODES - REPLENISH HEMOGLOBIN, - PLANNING ON DC TO [facility] FOR STRENGTHENING. HYPOKALEMIA - REPLENISH PER ICU PROTOCOL. LEUKOCYTOSIS - REPEAT LABS SHOWED STABLE WBC ESOPHAGEAL REFLUX - PPI IV HYPERLIPIDEMIA - HOLD ANTILIPEMIC AGENTS DVT PROPHYLAXIS, CANNOT USE LOVENOX DUE TO GI BLEEDING, HOLDING COUMADIN DUE TO GI BLEEDING, CANNOT USE CALF SCD'S DUE TO CALF PAIN, WILL PLACE FOOT PUMPS ON PT IF TOLERATED. GI PROPHYLAXIS WTIH PPI THERAPY. Pending Labs Laboratory Tests 11/07/21 04:27: White Blood Count 15.7, Red Blood Count 2.55, Hemoglobin 7.9, Hematocrit 24, Mean Corpuscular Volume 95, Mean Corpuscular Hemoglobin 31, Mean Corpuscular Hemoglobin Concent 33, Red Cell Distribution Width 19.5, Platelet Count 135, Mean Platelet Volume 10.4, Immature Granulocyte % (Auto) 6, Neutrophils (%) (Auto) 70, Lymphocytes (%) (Auto) 12, Monocytes (%) (Auto) 10, Eosinophils (%) (Auto) 1, Basophils (%) (Auto) 0, Neutrophils # (Auto) 11.1, Lymphocytes # (Auto) 1.9, Monocytes # (Auto) 1.6, Eosinophils # (Auto) 0.2, Basophils # (Auto) 0.0, Immature Granulocyte # (Auto) 0.9, Neutrophils % (Manual) 74, Lymphocytes % (Manual) 14, Monocytes % (Manual) 11, Eosinophils % (Manual) 1, Nucleated Red Blood Cells 12, Toxic Granulation 1+, Polychromasia MARKED, Poikilocytosis MARKED, Basophilic Stippling MODERATE, Anisocytosis MODERATE, Microcytosis SLIGHT, [place] Cells MARKED, Crenated Cell SLIGHT, Acanthocytes SLIGHT, Sodium Level 139, Potassium Level 3.9, Chloride Level 113, Carbon Dioxide Level 19, Anion Gap 7, Blood Urea Nitrogen 9, Creatinine 0.91, Estimat Glomerular Filtration Rate 63, BUN/Creatinine Ratio 10, Glucose Level 107, Calcium Level 8.5, Corrected Calcium 10.3, Phosphorus Level 2.8, Magnesium Level 1.8, Total Bilirubin 0.4, Aspartate Amino Transf (AST/SGOT) 17, Alanine Aminotransferase (ALT/SGPT) 23, Alkaline Phosphatase 49, Total Protein 3.6, Albumin 1.8 11/07/21 06:47: Digoxin Level 1.63 Discharge Instructions to patient/family Please see electronic discharge instructions given to patient. Discharge Medications Reviewed and agree with Discharge Medication list on patient's Discharge Instruction sheet Clinical Quality Measures DVT/VTE Risk/Contraindication: Contraindications-Pharm: Other *list below* Contraindications-Mechi: Other *list below* Other: GI BLEEDING - CANNOT HAVE LOVENOX INJECTIONS OR COUMADIN COLETTE CROWLEY MD November 07, 2021 08:27
[2021-11-07] MEDS ORDERED: LIDOCAINE 4% (SALONPAS) PATCH TOP SCH (09:00)
--- NOTE | 2021-11-07 09:36 | Occupational Ther Daily Note ---
OT Current Status-Daily Note Subjective Pt alert, sitting in recliner. Pt's daughter is present. Per nrsg and family, pt to discharge to [facility] when paperwork is complete today. Mental Status/Objective Patient Orientation: Person, Place, Time, Situation Attachments: Potts Catheter, IV, Oxygen, Telemetry ADL-Treatment After set up, pt able to complete oral care and grooming. Pt then required assistance to position self in recliner for comfort. After therapy, pt sitting in recliner with feet elevated. Call light/phone in reach. All needs met in room. Therapy Code Descriptions/Definitions Functional [place] Measure: 0=Not Assessed/NA 4=Minimal Assistance 1=Total Assistance 5=Supervision or Setup 2=Maximal Assistance 6=Modified [place] 3=Moderate Assistance 7=Complete IndependenceSCALE: Activities may be completed with or without assistive devices. 1-[id number]-iusjggm completes the activity by him/herself with no assistance from a helper. 5-Set-up or Clean-up Assistance-helper sets up or cleans up; patient completes activity. [place] assists only prior to or following the activity. 4-Supervision or Touching Assistance-helper provides verbal cues and/or touching/steadying and/or contact guard assistance as patient completes activity. Assistance may be provided throughout the activity or intermittently. 3-Partial/Moderate Assistance-helper does LESS THAN HALF the effort. [place] lifts, holds or supports trunk or limbs, but provides less than half the effort. 2-Substantial/Maximal Assistance-helper does MORE THAN HALF the effort. [place] lifts or holds trunk or limbs and provides more than half the effort. 6-Rytqvjwmj-qimetw does ALL the effort. Patient does none of the effort to complete the activity. Or, the assistance of 2 or more helpers is required for the patient to complete the activity. If activity was not attempted, code reason: 7-Patient Refused. 9-Not Applicable-not attempted and the patient did not perform the activity before the current illness, exacerbation or injury. 10-Not Attempted due to Environmental Limitations-(lack of equipment, weather restraints, etc.). 88-Not Attempted due to Medical Conditions or Safety Concerns. Oral Hygiene (QC): 5 OT Theatrical Rigger Goals Theatrical Rigger Goals Time Frame: November 22, 2021 Eating (QC): 5 Oral Hygiene (QC): 5 Toileting Hygiene (QC): 4 Shower/Bathe Self (QC): 4 Upper Body Dressing (QC): 4 Lower Body Dressing (QC): 4 On/Off Footwear (QC): 4 1=Demonstrate adherence to instructed precautions during ADL tasks. 2=Patient will verbalize/demonstrate understanding of assistive devices/modifications for ADL. 3=Patient will improve strength/tolerance for activity to enable patient to perform ADL's. OT Education/Plan Problem List/Assessment Assessment: Decreased Activ Tolerance, Decreased UE Strength, Impaired Funct Balance, Impaired Self-Care Skills Discharge Recommendations Plan/Recommendations: Continue POC Treatment Plan/Plan of Care Patient would benefit from OT for education, treatment and training to promote independence in ADL's, mobility, safety and/or upper extremity function for ADL's. Plan of Care: ADL Retraining, Functional Mobility, Group Exercise/Act as Ind, UE Funct Exercise/Act Treatment Duration: November 22, 2021 Frequency: 3 times per week (3-5x/week) Estimated Hrs Per Day: .25 hour per day Agreement: Yes Time/GCodes Start Time: 09:07 Stop Time: 09:30 Total Time Billed (hr/min): 23 Billed Treatment Time 1 visit-ADL 2 (23 min) ALEXANDR CLAUDIO November 07, 2021 09:36
--- NOTE | 2021-11-07 09:43 | Physical Therapy Daily Note ---
PT Daily Note-Current Subjective Patient reluctantly agrees to PT. Mental Status Patient Orientation: Normal For Age Attachments: Oxygen, Potts Catheter Transfers SCALE: Activities may be completed with or without assistive devices. 6-Vifkktpooi-osgqhny completes the activity by him/herself with no assistance from a helper. 5-Set-up or Clean-up Assistance-helper sets up or cleans up; patient completes activity. [place] assists only prior to or following the activity. 4-Supervision or Touching Assistance-helper provides verbal cues and/or touching/steadying and/or contact guard assistance as patient completes activity. Assistance may be provided throughout the activity or intermittently. 3-Partial/Moderate Assistance-helper does LESS THAN HALF the effort. [place] lifts, holds or supports trunk or limbs, but provides less than half the effort. 2-Substantial/Maximal Assistance-helper does MORE THAN HALF the effort. [place] lifts or holds trunk or limbs and provides more than half the effort. 5-Snbbfngwv-ivbenq does ALL the effort. Patient does none of the effort to complete the activity. Or, the assistance of 2 or more helpers is required for the patient to complete the activity. If activity was not attempted, code reason: 7-Patient Refused. 9-Not Applicable-not attempted and the patient did not perform the activity before the current illness, exacerbation or injury. 10-Not Attempted due to Environmental Limitations-(lack of equipment, weather restraints, etc.). 88-Not Attempted due to Medical Conditions or Safety Concerns. Lying to Sitting/Side of Bed(Q: 3 Sit to Stand (QC): 3 Chair/Sic-tv-Ftxzq Xfer(QC): 3 Gait Training Distance: 25' Walk 10 feet (QC): 3 Gait Assistive Device: FWW slow, steady Exercises Seated Therapy Exercises: Ankle pumps, Long arc quads Seated Reps: 15 Assessment Patient tolerated treatment well and per physician will dismiss to NH on this date. PT Hydraulic Auto Jack Mechanic Goals Hydraulic Auto Jack Mechanic Goals PT Mcfp Goals Time Frame: November 10, 2021 Roll Left & Right (QC): 6 Sit to Lying (QC): 4 Lying-Sitting on Side/Bed(QC): 4 Sit to Stand (QC): 6 Chair/Ldo-tc-Wosfm Xfer(QC): 6 Walk 10 feet (QC): 6 Walk 50ft with 2 Turns (QC): 6 Walk 150 ft (QC): 6 PT Plan Treatment/Plan Treatment Plan: Continue Plan of Care Treatment Plan: Bed Mobility, Education, Functional Activity Toro, Functional Strength, Gait, Safety, Therapeutic Exercise, Transfers Treatment Duration: November 10, 2021 Frequency: 6 times per week Estimated Hrs Per Day: .5 hour per day Patient and/or Family Agrees t: Yes Time/GCodes Time In: 755 Time Out: 807 Total Billed Treatment Time: 12 Total Billed Treatment 1 visit FA 12 min JOSEPH GLASS PT November 07, 2021 09:43
--- NOTE | 2021-11-07 09:53 | Cardiology Progress Note ---
Subjective Date Seen by Provider: November 07, 2021 Time Seen by Provider: 09:51 Subjective/Events-last exam Patient was seen at bedside, sitting comfortably, feeling better, heart rate is slightly better. Review of Systems General: No Chills, No Night Sweats; Fatigue, Malaise; No Appetite, No Other HEENT: No Head Aches, No Visual Changes, No Eye Pain, No Ear Pain, No Dy sphasia, No Sinus Congestion, No Post Nasal Drip, No Sore Throat, No Other Pulmonary: Dyspnea; No Cough, No Pleuritic Chest Pain, No Other Cardiovascular: Edema; No: Chest Pain, Palpitations, Orthopnea, Paroxysmal Noc. Dyspnea, Lt Headedness, Other Focused Exam Time of Focused Exam: 11:00 Objective-Cardiology Exam Last Set of Vital Signs Vital Signs 11/07/21 11/07/21 07:34 08:00 Temp 36.1 Pulse 86 Resp 16 B/P (MAP) 89/60 Pulse Ox 96 O2 Delivery Room Air O2 Flow Rate 2.00 I&O Intake and Output 11/06/21 23:59 Intake Total 1400 ml Output Total 1425 ml Balance -25 ml Intake Oral 1150 ml IV Total 250 ml Output Urine Total 1425 ml # Bowel Movements 2 General: Alert, Oriented X3, Cooperative HEENT: Atraumatic, PERRLA Neck: Supple, No JVD, No Thyromegaly Lungs: Clear to Auscultation, Normal Air Movement Heart: Normal S1, Normal S2, No Murmurs, Other (Irregular) Abdomen: Normal Bowel Sounds, Soft, No Tenderness, No Hepatosplenomegaly, No Masses Extremities: No Clubbing, No Cyanosis, Normal Pulses, No Tenderness/Swelling, Other (+3 upper and lower extremities edema) Skin: No Rashes, No Breakdown, No Significant Lesion Neuro: Normal Speech, Normal Tone, Sensation Intact Psych/Mental Status: Mental Status NL, Mood NL Results Lab Laboratory Tests 11/07/21 04:27 A/P-Cardiology Admission Diagnosis GI bleed Anemia Urinary tract infection Atrial fibrillation Assessment/Plan Anemia, lower GI bleed, patient had multiple blood transfusion, continue to monitor H&H. Status post endoscopy which showed a healed duodenal ulcer and diverticulosis Bright red blood per rectum, reporting bleeding for the past week. Status post upper and lower endoscopy with Dr. Hernandez. Peripheral edema, fluid overload, improved today. Has history of chronic pedal edema, unable to tolerate compression socks Chest pain, nonspecific etiology, reproducible on the right side of her chest by pressing on her right shoulder, patient had extensive cardiac history. Cannot tolerate anticoagulation at this time, conservative management is recommended. Continue to monitor Atrial fibrillation with rapid ventricular response, history of permanent atrial fibrillation. Difficult to control heart rate due to her hypotension. Currently on Cardizem and I added digoxin, heart rate is slightly better. Blood pressure is borderline. [id number] score 5, maintained on Coumadin as an outpatient, supratherapeutic INR. Coumadin is on hold at this time. I would like to test Xarelto once her hemoglobin is stable Urinary tract infection, managed by primary care physician. Dizziness, multiple falls, no full syncope. Patient has history of generalized weakness and multiple falls in the past. History of dysphagia, heartburn, followed and managed by primary care physician Coronary artery disease- Cardiac catheterization done October 09, 2015 revealed 70 percent stenosis in the mid LAD. Successful stent deployment using 2.5 x 24 mm Promus Premier drug- eluting stent. Otherwise mild disease in the circumflex artery and RCA. Nonobstructive disease. Cardiac catheterization was done in September 2016 showing patent stent in the LAD, mild disease at the distal LAD and distal circumflex artery nonobstructive disease, Cardiac catheterization done in October 2018 after having an abnormal stress test which showed patent stent in the mid LAD, calcified LAD system tapering down into a very small artery distally with vimy-ba-nnnblezz disease nonobstructive disease, calcified right coronary system, dominant artery with jogm-pn-zbmlofxs disease nonobstructive disease. Normal left ventricular size with ejection fraction 60 percent. Conservative management, no intervention is needed. Continue to monitor Congestive heart failure, resolved, last echocardiogram done on November 03, 2021 showing normal left ventricular size with ejection fraction of 55 to 60%. Biatrial enlargement, mild to moderate mitral regurgitation, PA pressure 30 mmHg. Continue to monitor Slightly prominent aortic arch with hypertensive changes, blood pressure is under good control, continue on current medications and monitor COPD/obstructive sleep apnea, using CPAP. Hypothyroidism, followed and managed by Dr. Pisano. Hypertension, currently borderline hypotensive. Continue to monitor blood press ure Hyperlipidemia, monitor lipids Pulmonary hypertension, PA pressure 35-40 mmHg per echo done on September 09, 2019. 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 Franklin Becerril, followed by primary care physician Lilibeth for [facility] to a prison from cardiology standpoint ANAHY HANNA MD November 07, 2021 09:53
== END 2021-11-07 13:55 | DRG 377 ==
LOC: EDUNIT# 09:32 → ER 09:34 → ICU 11:35
PROVIDERS: ADMIT Family Medicine; ATTEND Family Medicine
PROC: 0DJ08ZZ Inspection of Upper Intestinal Tract, Via Natural or Artificial Opening Endoscopic (ICD-10-PCS; principal; 2021-11-04 12:04)
PROC: 0DBH8ZZ Excision of Cecum, Via Natural or Artificial Opening Endoscopic (ICD-10-PCS; 2021-11-04 12:04)
DX: K26.4 Chronic or unspecified duodenal ulcer with hemorrhage (principal); A41.9 Sepsis, unspecified organism; D62 Acute posthemorrhagic anemia; N39.0 Urinary tract infection, site not specified; I48.20 Chronic atrial fibrillation, unspecified; M80.88XA Other osteoporosis with current pathological fracture, vertebra(e), initial encounter for fracture; I50.22 Chronic systolic (congestive) heart failure; K57.91 Diverticulosis of intestine, part unspecified, without perforation or abscess with bleeding; Z79.82 Long term (current) use of aspirin; Z79.01 Long term (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; Z79.899 Other long term (current) drug therapy; Z87.891 Personal history of nicotine dependence; Z90.81 Acquired absence of spleen; Z96.653 Presence of artificial knee joint, bilateral; Z90.11 Acquired absence of right breast and nipple; Z95.5 Presence of coronary angioplasty implant and graft; I25.10 Atherosclerotic heart disease of native coronary artery without angina pectoris; Z86.718 Personal history of other venous thrombosis and embolism; E78.00 Pure hypercholesterolemia, unspecified; K21.9 Gastro-esophageal reflux disease without esophagitis; M19.90 Unspecified osteoarthritis, unspecified site; G89.29 Other chronic pain; E03.9 Hypothyroidism, unspecified; Z85.3 Personal history of malignant neoplasm of breast; Z85.828 Personal history of other malignant neoplasm of skin; Z92.3 Personal history of irradiation; J44.9 Chronic obstructive pulmonary disease, unspecified; G47.33 Obstructive sleep apnea (adult) (pediatric); I27.20 Pulmonary hypertension, unspecified; D72.829 Elevated white blood cell count, unspecified; E87.6 Hypokalemia; E87.8 Other disorders of electrolyte and fluid balance, not elsewhere classified; E83.51 Hypocalcemia; R00.0 Tachycardia, unspecified; M85.80 Other specified disorders of bone density and structure, unspecified site; I95.9 Hypotension, unspecified; R53.1 Weakness; K63.5 Polyp of colon; E87.70 Fluid overload, unspecified; R07.9 Chest pain, unspecified; R42 Dizziness and giddiness; I65.23 Occlusion and stenosis of bilateral carotid arteries; I11.0 Hypertensive heart disease with heart failure
CPT/HCPCS: 36415; 36569; 70450; 71045; 71250; 72125; 72128; 72131; 73552; 73590; 74176; 76937; 80048; 80053; 80162; 81000; 82274; 82728; 83540; 83550; 83605; 83735; 84100; 84132; 84145; 84439; 84443; 84480; 84484; 85007; 85014; 85018; 85025; 85027; 85610; 85730; 86850; 86900; 86901; 86920; 87040; 87077; 87081; 87088; 87186; 87324; 87449; 88305; 93005; 93041; 93306; 96365; 96375